=== PATIENT | male | born 1945 | race Caucasian/White ===

== ENCOUNTER 2019-06-30 12:18 | Emergency (ER) | payer SELFPAY ==
[2019-06-30 12:38] VITALS: PULSE 58; TEMP 98.8; BMI 19.8
--- NOTE | 2019-06-30 13:22 | PDOC ---
History of Present Illness - General Chief Complaint: Rash Stated Complaint: FOOT RASH/FEET PAIN Time Seen by Provider: 06/30/19 13:21 History Source: Patient, Family - History of Present Illness Initial Comments: 06/30/19 13:58 Mr. Apolinar Hemphill is a 74 y/o English speaking man with hx CKD, HTN, HLD presenting with three months of bilateral ankle wounds. He arrived from the [facility] yesterday and reports that his wounds were being managed there with antibiotics. He does not remember the names of the antibiotics that he was taking, but reports several courses of antibiotics over the last few months. He reports that the wounds began approx 3 months ago when he cut his ankle on his shoe. He reports that the L ankle wound ulcerated and eventually grew to its current state. He reports that the wound on the R foot began after he hit his leg against some furniture. He reports that he has no history of diabetes, but that he has been told by several physicians that he has "poor circulation", and that that was the likely cause of the long healing time for his wounds. He reports that for the last two months he has had difficulty ambulating secondary to pain, and reports some difficulty in doing his normal daily activities due to difficulty walking. He reports that he has not seen a physician in the [place] before and would like to establish care. He denies any fevers, chills, fatigue, night sweats, chest pain, shortness of breath, abdominal pain, paresthesias, numbness in his feet, weakness. Is this a multiple visit Asthma Patient?: No Past History - Past Medical History Allergies/Adverse Reactions: Allergies Allergy/AdvReac Type Severity Reaction Status Date / Time No Known Allergies Allergy Verified 06/30/19 12:34 COPD: No HTN: Yes - Surgical History Appendectomy: Yes - Psycho Social/Smoking Cessation Hx Smoking History: Never smoked Hx Alcohol Use: No Drug/Substance Use Hx: No Review of Systems - Review of Systems Able to Perform ROS?: Yes Comments:: 06/30/19 14:16 ROS: GENERAL/CONSTITUTIONAL: No fever or chills. No weakness. HEAD, EYES, EARS, NOSE AND THROAT: No change in vision. No ear pain or discharge. No sore throat. CARDIOVASCULAR: No chest pain or shortness of breath RESPIRATORY: No cough, wheezing, or hemoptysis. GASTROINTESTINAL: No nausea, vomiting, diarrhea or constipation. GENITOURINARY: No dysuria, frequency, or change in urination. MUSCULOSKELETAL: Bilateral ankle pain. No other joint or muscle swelling or pain. No neck or back pain. SKIN: No rash NEUROLOGIC: No headache, vertigo, loss of consciousness, or change in strength/ sensation. ENDOCRINE: No increased thirst. No abnormal weight change HEMATOLOGIC/LYMPHATIC: No anemia, easy bleeding, or history of blood clots. ALLERGIC/IMMUNOLOGIC: No hives or skin allergy. *Physical Exam - Vital Signs Last Vital Signs Temp Pulse Resp BP Pulse Ox 98.8 F 58 L 14 197/96 H 96 06/30/19 12:31 06/30/19 12:31 06/30/19 12:31 06/30/19 12:31 06/30/19 12:31 - Physical Exam Comments: 06/30/19 14:20 PE: GENERAL: Awake, alert, and fully oriented, in no acute distress HEAD: No signs of trauma, normocephalic, atraumatic EYES: PERRLA, EOMI, sclera anicteric, conjunctiva clear ENT: Auricles normal inspection, hearing grossly normal, nares patent, oropharynx clear without exudates. Moist mucosa NECK: Normal ROM, supple, no lymphadenopathy, JVD, or masses LUNGS: No distress, speaks full sentences, clear to auscultation bilaterally HEART: Regular rate and rhythm, normal S1 and S2, no murmurs, rubs or gallops, peripheral pulses normal and equal bilaterally. ABDOMEN: Soft, nontender, normoactive bowel sounds. No guarding, no rebound. No masses EXTREMITIES : L posterior ankle wound: approx 3cm wound, granulation tissue visible, no overlying erythema. R posterior ankle wound: approx 2cm wound, granulation tissue visible, no overlying erythema. ROM of bilateral feet limited by pain, no edema. No clubbing or cyanosis NEUROLOGICAL: Cranial nerves II through XII grossly intact. Normal speech, no focal sensorimotor deficits SKIN: Warm, Dry, normal turgor, no other rashes or lesions noted except as described above ED Treatment Course - LABORATORY CBC & Chemistry Diagram: 06/30/19 14:16 06/30/19 14:16 Medical Decision Making - Medical Decision Making Medical Decision Makin:[age] y.o M with hx CKD, HTN, HLD, ?peripheral vascular disease p/w three months of chronic bilateral ankle wounds. No systemic symtoms, denies fevers, chills, shortness of breath, no neuro findings of lower extremities. Low suspicion for sepsis - negative SIRS, qSOFA criteria. Plan: CBC CMP UA Urine culture Ankle and Foot X Ray L, R Dispo: Likely home with referral to PCP, wound care follow up. --- CBC - WBC 10.9 CMP - Cr 3.1 (baseline 3.0 per records from [facility]) UA - 3+ Protein Ankle/Foot XR - image reviewed, no free air or abscess noted. Pending formal read. Plan for referrals for: [facility] to establish primary care, Dr. Blount - Nephrology, Dr. Morin - Wound Care, Dr. May - Podiatry --- Xrays - negative for acute process. Plan for discharge home with follow up plan as described above. Discharge - Discharge Information Problems reviewed: Yes Clinical Impression/Diagnosis: Wound cellulitis Condition: Stable Disposition: HOME - Admission No - Follow up/Referral Referrals: Reginald Blount MD [Staff Physician] - Noé May DPM [Staff Physician] - [facility] [Provider Group] Moises Morin MD [Non Staff, Medical] - - Patient Discharge Instructions Patient Printed Discharge Instructions: Skin Wound Additional Instructions: Usted fue evaluado en la [place] de urgencias por evaluacion de piedad heridas de piel. Chequeamos a piedad niveles de dannie, y tomamos steph X de piedad pies. Todo resulto normal. Piedad niveles de Creatinine, que mide funcion de piedad rinones, estaba elavado - parece igual que piedad niveles previas. [place] indique problema de rinon cronico. Estamos dando referido a la [facility] - por favor antione javier con ellos para establecer a un doctor de cabezera. Tambien estamos dando referido a un podiatra - un doctor de pies. Estamos dando un referido con un Nefrologo - un doctor de los rinones. Por fin, estamos dando referido con el Dr. Morin, quien trate heridas cronicas de piel. Por favor antione javier petra tambien para evaluar a piedad pies. - Post Discharge Activity
[2019-06-30 14:36] LABS: BASO % 1.4 % (0-2.0); EOS % 7.3 % (0-4.5); HEMATOCRIT 36.8 % (35.4-49); HEMOGLOBIN 12.2 GM/dL (11.7-16.9); LYMPH % 12.4 % (8-40); MCH 32.2 pg (25.7-33.7); MCHC 33.2 g/dl (32.0-35.9); MEAN CELL VOLUME 97.2 fl (80-96); MONO % 17.5 % (3.8-10.2); NEUT % 61.4 % (42.8-82.8); PLATELET COUNT 252 K/MM3 (134-434); RBC 3.79 M/mm3 (4.00-5.60); RDW 16.8 % (11.9-15.9); WHITE BLOOD COUNT 10.9 K/mm3 (4.0-10.0)
[2019-06-30 15:12] LABS: EPI CELLS 1.8 /HPF (0-5/HPF); HYALINE CASTS 31 /lpf (0-8); PH,URINE 5.5 (5.0-8.0); URINE APPEARANCE CLEAR; URINE BACTERIA 0.8 /hpf (NEGATIVE); URINE BILIRUBIN NEGATIVE (NEGATIVE); URINE COLOR YELLOW; URINE GLUCOSE (UA) NEGATIVE (NEGATIVE); URINE KETONE NEGATIVE (NEGATIVE); URINE LEUK ESTERASE NEGATIVE (NEGATIVE); URINE NITRITE NEGATIVE (NEGATIVE); URINE PROTEIN 3+ (NEGATIVE); URINE RBC 1 /hpf (0-4); URINE UROBILINOGEN 0.2 mg/dL (0.2-1.0); URINE WBC 1 /hpf (0-5)
[2019-06-30 15:26] LABS: ALBUMIN 3.8 g/dl (3.4-5.0); BILIRUBIN,TOTAL 0.5 mg/dL (0.2-1); CREATININE 3.1 mg/dL (0.55-1.3); POTASSIUM 5.3 mmol/L (3.5-5.1); TOT PROT 10.6 g/dl (6.4-8.2)
--- NOTE | 2019-06-30 15:45 | PDOC ---
Documentation entered by Nicolle Mcgee SCRIBE, acting as scribe for Alexandra Sánchez DO. Alexandra Sánchez DO: This documentation has been prepared by the Everardo art Adrianna, SCRIBE, under my direction and personally reviewed by me in its entirety. I confirm that the documentation accurately reflects all work, treatment, procedures, and medical decision making performed by me. Attending Attestation - Resident Resident Name: Kevin Suero - ED Attending Attestation I have performed the following: I have examined & evaluated the patient, The case was reviewed & discussed with the resident, I agree w/resident's findings & plan, Exceptions are as noted - HPI HPI: The patient is a 74 year old male, with a significant PMH of HTN, CKD, and HLD, who presents to the ED for evaluation of LE wounds for 3 months. Patient obtained a wound to the right posterior ankle after hitting it on furniture, and had a cut to his left medial ankle which ulcerated. Both wounds developed progressively worsening redness and pain. His pain is exacerbated with bearing weight, and he reports difficulty ambulating secondary to pain. He returned from the [place] yesterday, where he was being treated with several courses of antibiotics (unsure of the specific medications). Denies fevers, chills, chest pain, SOB, nausea, vomit, diarrhea, dysuria, hematuria, numbness or tingling of the LEs. Allergies: NKA, NKDA Surgical History: Appendectomy Social History: Denies EtOH, tobacco, or illicit drug use PCP: Does not have one - Physicial Exam PE: Constitutional: Awake, alert, oriented. No acute distress. Head: Normocephalic. Atraumatic Eyes: PERRL. EOMI. Conjunctivae are not pale. ENT: Mucous membranes are moist and intact. Posterior pharynx without exudates or erythema. Uvula midline. Neck: Supple. Full ROM. No lymphadenopathy. Cardiovascular: Regular rate. Regular rhythm. S1, S2 regular. Distal pulses are 2+ and symmetric. Pulmonary/Chest: No evidence of respiratory distress. Clear to auscultation bilaterally No wheezing, rales or rhonchi. Abdominal: Soft and nondistended. There is no tenderness. No rebound, guarding or rigidity. No organomegaly. No palpable masses. Good bowel sounds. Back: No CVA tenderness. Musculoskeletal: No edema. No cyanosis. No clubbing. Full range of motion in all extremities. Nocalf tenderness. Radial/pedal pulses are intact and 2+ bilaterally Skin: +Wounds to the bilateral heels, without induration, fluctuate, erythema, or drainage. +Granulation of skin with an applied medical serum. Skin is warm and dry. No petechiae. No purpura. Neurological: Alert and oriented to person, place, and time. Cranial nerves II -XII are grossly intact. Normal speech. Strength is grossly symmetric. No sensory deficits. Psychiatric: Good eye contact. Normal interaction, affect and behavior. - Medical Decision Making 06/30/19 15:41 I, Dr. Alexandra Sánchez, DO, attest that this document has been prepared under my direction and personally reviewed by me in its entirety. I further attest, that it accurately reflects all work, treatment, procedures and medical decision -making performed by me. a/p: 74yo male with hx of htn and chronic wounds to back of legs -pt being treated in the DR for htn, ckd, and wounds -has topical medicine he has been applying -arrived yesterday, daughter saw the wounds and brought the patient to the ED for re-eval -wounds, no acute infection, no drainage, no warmth, no cellulitis -elevated bp upon arrival -will send labs, xrays of feet 06/30/19 15:43 no acute air or bony changes visualized ckd and baseline cr per prior records from 149/79 is repeat bp stable for dc to home and follow up with pmd, podiatry, renal, and vasc sx for wound care no abx needed at this time
[2019-06-30 15:57] VITALS: BP 149/79
[2019-06-30 16:15] LABS: ANISOCYTOSIS 1+; MACROCYTOSIS 1+
[2019-06-30 16:16] LABS: PLATELET ESTIMATE ADEQUATE
== END 2019-06-30 16:21 | disposition home or self-care (01) ==
LOC: JER 12:18
DX: L03.116 Cellulitis of left lower limb (principal); L03.115 Cellulitis of right lower limb; I12.9 Hypertensive chronic kidney disease with stage 1 through stage 4 chronic kidney disease, or unspecified chronic kidney disease; N18.9 Chronic kidney disease, unspecified; E78.5 Hyperlipidemia, unspecified; I73.9 Peripheral vascular disease, unspecified
CPT/HCPCS: 36415; 73610-TC-LT-FY; 73610-TC-RT-FY; 73630-TC-LT; 73630-TC-RT-FY; 80053; 81003; 85025; 87086; 99282-25

== ENCOUNTER 2019-09-01 11:08 | Inpatient (IN) | payer OTHER ==
--- NOTE | 2019-09-01 11:37 | PDOC ---
History of Present Illness - General Chief Complaint: Blood Pressure Problem Stated Complaint: SENT BY PCP Time Seen by Provider: 09/01/19 11:36 History Source: Patient, Family Exam Limitations: Language Barrier - History of Present Illness Initial Comments: 09/05/19 08:28 HPI: 74M PMH HTN and CKD, yemeni speaking recently from [place] sent by solidworks designer for elevated BP. Pt is asymptomatic. Denies cp/palp/sob, headache, lightheadedness, dizziness, abd pain, n/v/d, bloody stool. Pt has a 1 month hx of rash involving the forearm, chest, abdomen, and legs. Pt has a chronic achilles foot wound currently being treated w santyl and amoxicillin. NKDA. Pt took all home meds today. History gathered w/ assistance of family at bedside. Meds per pharmacy: labetalol hcl 100; augmentin 500-125, santyl ointment PCP - Dr. Kendall Past History - Past Medical History Allergies/Adverse Reactions: Allergies Allergy/AdvReac Type Severity Reaction Status Date / Time No Known Allergies Allergy Verified 09/01/19 11:18 Home Medications: Ambulatory Orders Amoxicillin/Potassium Clav [Amox-Clav 500-125 mg Tablet] 500 mg PO BID 09/01/19 Labetalol HCl 100 mg PO BID 09/01/19 Cardiac Disorders: No COPD: No HTN: Yes Hypercholesterolemia: Yes Kidney Stones: (renal failure 20% working) Other medical history: leg ulcers, - Surgical History Appendectomy: Yes - Psycho Social/Smoking Cessation Hx Smoking History: Never smoked Information on smoking cessation initiated: No Hx Alcohol Use: No Drug/Substance Use Hx: No Review of Systems - Review of Systems Able to Perform ROS?: Yes Comments:: 09/05/19 08:28 ROS: CONSTITUTIONAL: Denies F / C HEENT: Denies headache, lightheadedness, dizziness, changes in vision / hearing , diplopia, blurry vision Denies sore throat, rhinorrhea. RESP: Denies SOB, cough, orthopnea, PEDRO CARD: Denies chest pain, palpitations GI: Denies N / V / D, abdominal pain, bloody stool, inability to tolerate PO : Endorses one day of urinary frequency and suprapubic pain. SKIN: Denies rashes NEURO: Denies numbness, tingling, weakness MSK: Denies back pain Is the patient limited Syrian proficient: Yes *Physical Exam - Vital Signs Last Vital Signs Temp Pulse Resp BP Pulse Ox 97.8 F 66 19 238/106 H 97 09/01/19 11:10 09/01/19 11:10 09/01/19 11:10 09/01/19 11:10 09/01/19 11:10 - Physical Exam 09/05/19 08:28 PE: VS - Hypertensive to 250s/110s GEN: Well appearing, NAD, comfortable. AAOx3 HEENT: NC/AT, CN II-XII intact, EOMI, PERRLA. No facial asymmetry. Moist mucous membranes. Normal voice. Supple neck w/ FROM. CV: S1/S2, RRR, no m/r/g LUNG: CTAB, no wheezes, crackles, rales, rhonchi. GI: soft, ndnt, +BS, no guarding, no rebound. No masses. Neg CVAT b/l. EXTREMITIES: No obvious deformities of all extremities. Left foot, achilles region w/ 3cm wound w/ granulation tissue; covered w/ ointment. SKIN: warm, dry, normal turgor. Red erythematous rash extensor surface of b/l forearm, pruritic, scaling. Similar rash on sternum. Rash present on flanks and LEs. PSYCH: normal mood and affect NEURO: Moving all extremities well. 5/5 strength UE and LE. symmetric sensation. Heart Score/ECG Review - History History: Moderately suspicious - Electrocardiogram EKG: Non specific repolarization disturbance - Age Age: >/= 65 - Risk Factors Risk Factors Heart Score: Yes Hx Hypertension Based on the list above the patient has:: 1-2 risk factors - Troponin Troponin: 1-3x normal limit - Score Heart Score - Total: 6 ED Treatment Course - LABORATORY CBC & Chemistry Diagram: 09/05/19 05:25 09/05/19 05:25 Medical Decision Making - Medical Decision Making 09/01/19 12:10 MDM: 74M with asymptomatic hypertension. Likely HTN urgency vs emergency. Cpr Instructor reporting ekg changes along w/ elevated BP; states regular SBP 170s. - cbc, cmp, cardiac - ua - EKG - nicardipine drip w/ transition to amlodipine if BP responsive; goal of 20% reduction EKG 09/01/19 11:33 HR 58 DE 150 QRS 98 QTc 406 Sinus bradycardia, TWI V1, ST/T abnormality V5-6 09/01/19 13:48 BP 184/93 s/p drip initiation start amlodipine 10mg reassess; will wean off nicardipine drip 09/01/19 15:39 150s/70s on 2.5mg dc drip continue close BP monitoring 09/01/19 16:14 off drip 170/86 rpt and admit 09/01/19 16:20 labs reviewed trop 0.09 HEART = 6 tele-obs 09/01/19 16:55 177/90 rpt CXR w/o acute pathology 09/01/19 17:25 Endorsed to hospitalists Admitted Obs-tele Discharge - Discharge Information Problems reviewed: Yes Clinical Impression/Diagnosis: Hypertensive emergency - Follow up/Referral - Patient Discharge Instructions - Post Discharge Activity
[2019-09-01] MEDS ORDERED: NICARDIPINE 25 MG in DEXTROSE 5%-WATER - 240 ML IVPB SCH (12:30)
[2019-09-01 12:50] LABS: BASO % 0.9 % (0-2.0); EOS % 10.9 % (0-4.5); HEMATOCRIT 31.7 % (35.4-49); HEMOGLOBIN 10.5 GM/dL (11.7-16.9); LYMPH % 14.4 % (8-40); MCH 32.9 pg (25.7-33.7); MCHC 33.3 g/dl (32.0-35.9); MEAN CELL VOLUME 98.8 fl (80-96); MEAN PLT VOLUME 7.7 fl (7.5-11.1); MONO % 17.8 % (3.8-10.2); PLATELET COUNT 245 K/MM3 (134-434); RDW 17.6 % (11.9-15.9); WHITE BLOOD COUNT 11.5 K/mm3 (4.0-10.0)
[2019-09-01 12:56] LABS: EPI CELLS 0.6 /HPF (0-5/HPF); HYALINE CASTS 2 /lpf (0-8); URINE APPEARANCE TURBID; URINE BACTERIA 9.3 /hpf (NEGATIVE); URINE BILIRUBIN NEGATIVE (NEGATIVE); URINE COLOR YELLOW; URINE GLUCOSE (UA) NEGATIVE (NEGATIVE); URINE KETONE NEGATIVE (NEGATIVE); URINE LEUK ESTERASE NEGATIVE (NEGATIVE); URINE NITRITE NEGATIVE (NEGATIVE); URINE PROTEIN 3+ (NEGATIVE); URINE RBC 5 /hpf (0-4); URINE UROBILINOGEN 0.2 mg/dL (0.2-1.0); URINE WBC 3 /hpf (0-5)
[2019-09-01 13:26] LABS: ALBUMIN 3.3 g/dl (3.4-5.0); BILIRUBIN,TOTAL 0.3 mg/dL (0.2-1); BLOOD UREA NITROGEN 36.3 mg/dL (7-18); CALCIUM 9.2 mg/dL (8.5-10.1); CREATININE 3.2 mg/dL (0.55-1.3); POTASSIUM 3.8 mmol/L (3.5-5.1); TOT PROT 8.9 g/dl (6.4-8.2)
--- NOTE | 2019-09-01 13:50 | PDOC ---
Documentation entered by Graham Rodríguez SCRIBE, acting as scribe for Brown Mccauley MD. Brown Mccauley MD: This documentation has been prepared by the Anne art Nirvannie, SCRIBE, under my direction and personally reviewed by me in its entirety. I confirm that the documentation accurately reflects all work, treatment, procedures, and medical decision making performed by me. Attending Attestation - Resident Resident Name: ParryAlbaro - ED Attending Attestation I have performed the following: I have examined & evaluated the patient, The case was reviewed & discussed with the resident, I agree w/resident's findings & plan - HPI HPI: 09/01/19 12:10 The patient is a 74 year old male, with a significant past medical history of HTN, CKD, and HLD, who presents to the emergency department with, elevated blood pressure and abnormal EKG at clinic. Patient was advised by his telegraph mechanic Dr. Jose Enrique Owen to report to the ED for further evaluation. Allergies: NKDA Past surgical history: Appendectomy. - Physicial Exam PE: 09/01/19 13:48 Patient is awake and alert, well-nourished, in no distress Normocephalic, atraumatic PERRLA, EOMI No JVD CTA RRR Extent of her throat dermatitis upper extremities and lower extremities bilaterally as well as upper chest no lower extremity edema - Medical Decision Making 09/01/19 13:49 Patient 74-year-old male with multiple comorbidities, presents to the ER with significantly elevated blood pressure with EKG revealing T wave inversions and lateral leads (no previous EKGs available for comparison. Given presence of EKG abnormalities, will treat as hypertensive emergency. Will initiate nicardipine drip given heart rate of 58 at this time. Will obtain CBC/CMP/ cardiac enzymes/UA for evaluation of proteinuria. Will attempt to convert to oral antihypertensives. Likely admission. 09/01/19 13:57 pt assymptomatic. BP noted 183/74. will administer amlodipine po.
[2019-09-01] MEDS ORDERED: amLODIPine BESYLATE 10 MG TABLET (FP) PO ONE (13:51)
[2019-09-01] MEDS ORDERED: amLODIPine BESYLATE 5 MG TABLET (FP) ONE (14:25)
[2019-09-01 15:45] LABS: ANISOCYTOSIS 1+; MACROCYTOSIS 1+; PLATELET ESTIMATE NORMAL
--- NOTE | 2019-09-01 15:58 | EKG ---
Test Reason : Blood Pressure : / mmHG Vent. Rate : 058 BPM Atrial Rate : 058 BPM P-R Int : 150 ms QRS Dur : 098 ms QT Int : 414 ms P-R-T Axes : 040 021 102 degrees QTc Int : 406 ms SINUS BRADYCARDIA ABNORMAL ECG NO PREVIOUS ECGS AVAILABLE Confirmed by NICOLE YADAV MD ([id number]) on 09/01/2019 3:56:06 PM Referred By: Confirmed By:NICOLE YADAV MD
--- NOTE | 2019-09-01 19:54 | HP ---
CHIEF COMPLAINT: elevated blood pressures PCP:Dr. Kendall [employer] Equipment Operator: Dr. Owen HISTORY OF PRESENT ILLNESS: This 74 year old mainly Kazakh speaking male with a significant past medical history of hypertension, chronic kidney disease and hyperlipidemia who presents to the emergency department with elevated blood pressure and found to have an abnormal EKG at clinic. Patient was advised by his [employer] Equipment Operator to report to the ED for further evaluation. ER course was notable for hypertensive urgency. He was started on an IV nicardipine gtt with improvement in blood pressures. He also received amlodipine 10 mg tablet. He was found to have an elevated troponin of 0.09 and abnormal EKG with T wave inversions in V1 and ST depressions.Patient was asymptomatic and denied headache, chest pain, dizziness or shortness of breath. Recent Travel: denies PAST MEDICAL HISTORY: hypertension chronic kidney disease hyperlipidemia PAST SURGICAL HISTORY: appendectomy Social History: Smoking:no Alcohol:no Drugs: no Allergies No Known Allergies Allergy (Verified 09/01/19 11:18) HOME MEDICATIONS: REVIEW OF SYSTEMS CONSTITUTIONAL: Absent: fever, chills, diaphoresis, generalized weakness, malaise, loss of appetite, weight change HEENT: Absent: rhinorrhea, nasal congestion, throat pain, throat swelling, difficulty swallowing, mouth swelling, ear pain, eye pain, visual changes CARDIOVASCULAR: Absent: chest pain, syncope, palpitations, irregular heart rate, lightheadedness , peripheral edema RESPIRATORY: Absent: cough, shortness of breath, dyspnea with exertion, orthopnea, wheezing, stridor, hemoptysis GASTROINTESTINAL: Absent: abdominal pain, abdominal distension, nausea, vomiting, diarrhea, constipation, melena, hematochezia GENITOURINARY: Absent: dysuria, frequency, urgency, hesitancy, hematuria, flank pain, genital pain MUSCULOSKELETAL: Absent: myalgia, arthralgia, joint swelling, back pain, neck pain SKIN: Absent: rash, itching, pallor HEMATOLOGIC/IMMUNOLOGIC: Absent: easy bleeding, easy bruising, lymphadenopathy, frequent infections ENDOCRINE: Absent: unexplained weight gain, unexplained weight loss, heat intolerance, cold intolerance NEUROLOGIC: Absent: headache, focal weakness or paresthesias, dizziness, unsteady gait, seizure, mental status changes, bladder or bowel incontinence PSYCHIATRIC: Absent: anxiety, depression, suicidal or homicidal ideation, hallucinations. PHYSICAL EXAMINATION Vital Signs - 24 hr 09/01/19 09/01/19 09/01/19 11:10 13:13 13:59 Temperature 97.8 F Pulse Rate 66 63 Pulse Rate [ Apical] Respiratory 19 Rate Blood Pressure 238/106 H 254/118 H Blood Pressure 184/93 H [Right Arm] O2 Sat by Pulse 97 Oximetry (%) 09/01/19 09/01/19 09/01/19 14:29 15:12 15:30 Temperature Pulse Rate Pulse Rate [ 78 69 71 Apical] Respiratory 16 16 16 Rate Blood Pressure Blood Pressure 166/78 144/81 155/75 [Right Arm] O2 Sat by Pulse 98 98 98 Oximetry (%) 09/01/19 09/01/19 16:30 17:30 Temperature Pulse Rate Pulse Rate [ 72 70 Apical] Respiratory Rate Blood Pressure Blood Pressure 168/57 L 166/75 [Right Arm] O2 Sat by Pulse Oximetry (%) GENERAL: awake alert and fully oriented HEAD: normal EARS, NOSE, THROAT: ears normal no exudate moist mucous membranes NECK: normal LUNGS: breath sounds equal clear to auscultation bilaterally no use of accessory muscles HEART: regular rate and rhythm normal S1 and S2 ABDOMEN: soft nontender not distended normoactive bowel sounds MUSCULOSKELETAL: normal ROM UPPER EXTREMITIES: bilateral forearm rash with redness and itching LOWER EXTREMITIES: 2+ pulses warm to palpation no pitting edema NEUROLOGICAL: no neuro focal deficits PSYCHIATRIC: cooperative good eye contact appropriate mood and affect SKIN: warm rash present to bilateral forearms Laboratory Results - last 24 hr 09/01/19 09/01/19 09/01/19 11:45 11:45 12:45 WBC 11.5 H RBC 3.20 L Hgb 10.5 L Hct 31.7 L MCV 98.8 H MCH 32.9 MCHC 33.3 RDW 17.6 H Plt Count 245 MPV 7.7 Absolute Neuts (auto) 6.5 Neutrophils % 56.0 Neutrophils % (Manual) 64.9 Band Neutrophils % 2.1 Lymphocytes % 14.4 Lymphocytes % (Manual) 10.3 D Monocytes % 17.8 H Monocytes % (Manual) 12 H Eosinophils % 10.9 H Eosinophils % (Manual) 9.3 H Basophils % 0.9 Basophils % (Manual) 1.0 Myelocytes % (Man) 0 D Promyelocytes % (Man) 0 Blast Cells % (Manual) 0 Nucleated RBC % 1 H Metamyelocytes 0 Hypochromia 0 Platelet Estimate Normal Polychromasia 1+ Poikilocytosis 0 Anisocytosis 1+ Microcytosis 0 Macrocytosis 1+ Sodium 138 Potassium 3.8 Chloride 106 Carbon Dioxide 24 Anion Gap 8 BUN 36.3 H Creatinine 3.2 H Est GFR (CKD-EPI)AfAm 20.97 Est GFR (CKD-EPI)NonAf 18.09 Random Glucose 118 H Calcium 9.2 Total Bilirubin 0.3 AST 30 ALT 30 Alkaline Phosphatase 50 Creatine Kinase 744 H Creatine Kinase Index 0.3 CK-MB (CK-2) 2.3 Troponin I 0.09 H Total Protein 8.9 H Albumin 3.3 L Urine Color Yellow Urine Appearance Turbid Urine pH 6.0 Ur Specific [place] 1.014 Urine Protein 3+ H Urine Glucose (UA) Negative Urine Ketones Negative Urine Blood 1+ H Urine Nitrite Negative Urine Bilirubin Negative Urine Urobilinogen 0.2 Ur Leukocyte Esterase Negative Urine WBC (Auto) 3 Urine RBC (Auto) 5 Urine Casts (Auto) 2 U Epithel Cells (Auto) 0.6 Urine Bacteria (Auto) 9.3 ASSESSMENT/PLAN: 74 year old male with a significant past medical history of hypertension, chronic kidney disease,and hyperlipidemia who presented with hypertensive urgency. #1 Hypertensive Urgency Asymptomatic of chest pain, dizziness or headache. UA w/ 3+ proteinuria. Patient is euvolemic on exam. He was started on IV nicardipine gtt w/ improvement in blood pressures. He received amlodipine 10 mg tablet. Check echocardiogram to evaluate LV function and exclude LVH Continue with amlodipine 10 mg once daily Avoid janee/arb in the setting of kidney disease Monitor neurological status #2 Elevated Troponin Troponin 0.09-likely demand mediated ischemia in setting of hypertensive urgency and acute on chronic renal failure Abnormal EKG with sinus bradycardia T wave inversions in V1 and ST depressions, no acute ST elevation Continue to trend troponins Repeat EKG in am Cardiology- Dr. Ibrahim consulted #3 Acute on Chronic Kidney Disease Creatinine 3.2(at his baseline) Nephrology- Dr. Owen consulted Avoid janee/arb for blood pressure control #4 Mild Leukocytosis Currently afebrile, no chills or cough UA negative, CXR with no acute pathology He he has bilateral arm redness w/ itching(recently started on oral antibiotics which will continue) and has an ulcer to his foot. Wound culture pending Consulted Vascular- Dr. Morin for foot ulcer Consulted ID- Dr. Taveras for bilateral arm redness and foot ulcer Continue to monitor closely FEN --no fluids indicated at this time --monitor electrolytes --low sodium/renal diet DVT Prophylaxsis --TEDS --OOB to chair Visit type - Emergency Visit Emergency Visit: Yes ED Registration Date: 09/01/19 Care time: The patient presented to the Emergency Department on the above date and was hospitalized for further evaluation of their emergent condition. - New Patient This patient is new to me today: Yes Date on this admission: 09/01/19 - Critical Care Critical Care patient: No
[2019-09-01] MEDS ORDERED: METOPROLOL TARTRATE 25 MG TABLET (FP) PO SCH (22:15)
[2019-09-01] MEDS ORDERED: diphenhydrAMINE HCL 25 MG CAPSULE (FP) PO ONE (22:40)
[2019-09-01] MEDS: LABETALOL HCL 100 MG TABLET (FP) PO SCH (23:21)
[2019-09-01] MEDS: AMOXICILLIN 500 MG CAPSULE (FP) PO SCH (23:21)
[2019-09-02] MEDS: LABETALOL HCL 100 MG TABLET (FP) PO SCH (06:35)
[2019-09-02 07:48] LABS: BLOOD UREA NITROGEN 30.5 mg/dL (7-18); CALCIUM 9.8 mg/dL (8.5-10.1); CREATININE 2.9 mg/dL (0.55-1.3); POTASSIUM 3.8 mmol/L (3.5-5.1)
[2019-09-02 07:49] LABS: HEMATOCRIT 32.7 % (35.4-49); HEMOGLOBIN 10.9 GM/dL (11.7-16.9); MCH 33.1 pg (25.7-33.7); MCHC 33.4 g/dl (32.0-35.9); MEAN CELL VOLUME 99.1 fl (80-96); MEAN PLT VOLUME 7.7 fl (7.5-11.1); PLATELET COUNT 249 K/MM3 (134-434); RDW 17.4 % (11.9-15.9); WHITE BLOOD COUNT 12.6 K/mm3 (4.0-10.0)
--- NOTE | 2019-09-02 09:46 | PN ---
Physical Exam: SUBJECTIVE: Patient seen and examined. He complains of pain in his feet causing difficulty walking and an itchy rash on both arms and his chest. OBJECTIVE: Vital Signs Period Temp Pulse Resp BP Sys/Judd Pulse Ox Last 24 Hr 97.8 F-98.7 F 63-103 16-20 144-254/57-118 97-98 GENERAL: The patient is awake, alert, and fully oriented, in no acute distress. LUNGS: Breath sounds equal, clear to auscultation bilaterally, no wheezes, no crackles, no accessory muscle use. HEART: Regular rate and rhythm, S1, S2 without murmur, rub or gallop. ABDOMEN: Soft, nontender, nondistended, normoactive bowel sounds, no guarding, no rebound, no hepatosplenomegaly, no masses. EXTREMITIES: 2+ pulses, warm, well-perfused, no edema. SKIN: Warm, dry, normal turgor. Erythematous macular rash on both arms, upper chest. Laboratory Results - last 24 hr 09/01/19 09/01/19 09/01/19 11:45 11:45 12:45 WBC 11.5 H RBC 3.20 L Hgb 10.5 L Hct 31.7 L MCV 98.8 H MCH 32.9 MCHC 33.3 RDW 17.6 H Plt Count 245 MPV 7.7 Absolute Neuts (auto) 6.5 Neutrophils % 56.0 Neutrophils % (Manual) 64.9 Band Neutrophils % 2.1 Lymphocytes % 14.4 Lymphocytes % (Manual) 10.3 D Monocytes % 17.8 H Monocytes % (Manual) 12 H Eosinophils % 10.9 H Eosinophils % (Manual) 9.3 H Basophils % 0.9 Basophils % (Manual) 1.0 Myelocytes % (Man) 0 D Promyelocytes % (Man) 0 Blast Cells % (Manual) 0 Nucleated RBC % 1 H Metamyelocytes 0 Hypochromia 0 Platelet Estimate Normal Polychromasia 1+ Poikilocytosis 0 Anisocytosis 1+ Microcytosis 0 Macrocytosis 1+ Sodium 138 Potassium 3.8 Chloride 106 Carbon Dioxide 24 Anion Gap 8 BUN 36.3 H Creatinine 3.2 H Est GFR (CKD-EPI)AfAm 20.97 Est GFR (CKD-EPI)NonAf 18.09 Random Glucose 118 H Calcium 9.2 Total Bilirubin 0.3 AST 30 ALT 30 Alkaline Phosphatase 50 Creatine Kinase 744 H Creatine Kinase Index 0.3 CK-MB (CK-2) 2.3 Troponin I 0.09 H Total Protein 8.9 H Albumin 3.3 L Urine Color Yellow Urine Appearance Turbid Urine pH 6.0 Ur Specific [place] 1.014 Urine Protein 3+ H Urine Glucose (UA) Negative Urine Ketones Negative Urine Blood 1+ H Urine Nitrite Negative Urine Bilirubin Negative Urine Urobilinogen 0.2 Ur Leukocyte Esterase Negative Urine WBC (Auto) 3 Urine RBC (Auto) 5 Urine Casts (Auto) 2 U Epithel Cells (Auto) 0.6 Urine Bacteria (Auto) 9.3 09/01/19 09/02/19 09/02/19 23:00 05:53 05:53 WBC 12.6 H RBC 3.30 L Hgb 10.9 L Hct 32.7 L MCV 99.1 H MCH 33.1 MCHC 33.4 RDW 17.4 H Plt Count 249 MPV 7.7 Absolute Neuts (auto) Neutrophils % Neutrophils % (Manual) Band Neutrophils % Lymphocytes % Lymphocytes % (Manual) Monocytes % Monocytes % (Manual) Eosinophils % Eosinophils % (Manual) Basophils % Basophils % (Manual) Myelocytes % (Man) Promyelocytes % (Man) Blast Cells % (Manual) Nucleated RBC % Metamyelocytes Hypochromia Platelet Estimate Polychromasia Poikilocytosis Anisocytosis Microcytosis Macrocytosis Sodium 139 Potassium 3.8 Chloride 105 Carbon Dioxide 25 Anion Gap 9 BUN 30.5 H Creatinine 2.9 H Est GFR (CKD-EPI)AfAm 23.62 Est GFR (CKD-EPI)NonAf 20.38 Random Glucose 94 Calcium 9.8 Total Bilirubin AST ALT Alkaline Phosphatase Creatine Kinase Creatine Kinase Index CK-MB (CK-2) Troponin I 0.06 H Total Protein Albumin Urine Color Urine Appearance Urine pH Ur Specific [place] Urine Protein Urine Glucose (UA) Urine Ketones Urine Blood Urine Nitrite Urine Bilirubin Urine Urobilinogen Ur Leukocyte Esterase Urine WBC (Auto) Urine RBC (Auto) Urine Casts (Auto) U Epithel Cells (Auto) Urine Bacteria (Auto) 09/02/19 05:53 WBC RBC Hgb Hct MCV MCH MCHC RDW Plt Count MPV Absolute Neuts (auto) Neutrophils % Neutrophils % (Manual) Band Neutrophils % Lymphocytes % Lymphocytes % (Manual) Monocytes % Monocytes % (Manual) Eosinophils % Eosinophils % (Manual) Basophils % Basophils % (Manual) Myelocytes % (Man) Promyelocytes % (Man) Blast Cells % (Manual) Nucleated RBC % Metamyelocytes Hypochromia Platelet Estimate Polychromasia Poikilocytosis Anisocytosis Microcytosis Macrocytosis Sodium Potassium Chloride Carbon Dioxide Anion Gap BUN Creatinine Est GFR (CKD-EPI)AfAm Est GFR (CKD-EPI)NonAf Random Glucose Calcium Total Bilirubin AST ALT Alkaline Phosphatase Creatine Kinase Creatine Kinase Index CK-MB (CK-2) Troponin I 0.07 H Total Protein Albumin Urine Color Urine Appearance Urine pH Ur Specific [place] Urine Protein Urine Glucose (UA) Urine Ketones Urine Blood Urine Nitrite Urine Bilirubin Urine Urobilinogen Ur Leukocyte Esterase Urine WBC (Auto) Urine RBC (Auto) Urine Casts (Auto) U Epithel Cells (Auto) Urine Bacteria (Auto) Active Medications Generic Name Dose Route Start Last Admin Trade Name Freq PRN Reason Stop Dose Admin Amlodipine Besylate 10 mg 09/02/19 10:00 Norvasc - PO DAILY BRODIE Amoxicillin 500 mg 09/01/19 22:45 09/01/19 23:21 Amoxicillin - PO 500 mg BID BRODIE Administration Labetalol HCl 100 mg 09/01/19 22:45 09/02/19 06:35 Normodyne - PO 100 mg TID BRODIE Administration ASSESSMENT/PLAN: This is a 74 year old man with a history of HTN, hyperlipidemia, CKD who was sent from his PCP office to the ED for uncontrolled BP and abnormal EKG. 1. Hypertensive urgency - Nicardipine drip discontinued 2. HTN, uncontrolled - Continue Norvasc - Increase Labetalol - Echo ordered 3. Demand ischemia 4. Acute kidney injury on stage 4 CKD - Creatinine stable 5. Left heel ulcer - Wound care - Vascular surgery consulted - Follow up wound culture 6. Hyperlipidemia 7. Skin rash - ? allergy to PCN - has been on amoxicillin - Discontinue amoxicillin - Topical steroid Visit type - Emergency Visit Emergency Visit: Yes ED Registration Date: 09/02/19 Care time: The patient presented to the Emergency Department on the above date and was hospitalized for further evaluation of their emergent condition. - New Patient This patient is new to me today: Yes Date on this admission: 09/02/19 - Critical Care Critical Care patient: No - Discharge Referral Referred to [facility] Med P.C.: No
--- NOTE | 2019-09-02 10:06 | CON.CARD ---
Consult Consult Specialty:: Cardiology for Dr. Simmons Referred by:: Hospitalist Medicine Reason for Consultation:: Hypertensive urgency - History of Present Illness Chief Complaint: Hypertensive urgency History of Present Illness: This 74 year old mainly Yakut speaking male with a significant past medical history of hypertension, chronic kidney disease and hyperlipidemia referred to the emergency department with elevated blood pressure and found to have an abnormal EKG at clinic. Patient was advised by his math instructor to report to the ED for further evaluation. ER course was notable for hypertensive urgency. He was started on an IV nicardipine gtt with improvement in blood pressures. He also received amlodipine 10 mg tablet. He was found to have an elevated troponin of 0.09 since declining and abnormal EKG with strain pattern. Patient is asymptomatic and denied headache, chest pain, dizziness, true syncope , palpitations, shortness of breath, orthopnea, PNE pr LE edema, reports medication and diet compliance, denies NSAID use. - History Source History Provided By: Family Member, Medical Record Limitations to Obtaining History: Language Barrier - Alcohol/Substance Use Hx Alcohol Use: No - Smoking History Smoking history: Never smoked Home Medications - Allergies Allergies/Adverse Reactions: Allergies Allergy/AdvReac Type Severity Reaction Status Date / Time No Known Allergies Allergy Verified 09/01/19 11:18 - Home Medications Home Medications: Ambulatory Orders Amoxicillin/Potassium Clav [Amox-Clav 500-125 mg Tablet] 500 mg PO BID 09/01/19 Labetalol HCl 100 mg PO BID 09/01/19 Review of Systems - Review of Systems Cardiovascular: reports: No Symptoms Respiratory: reports: No Symptoms - Risk Factors Known Risk Factors: Yes: Hypertension Vital Signs: Vital Signs Temperature 98.7 F 09/02/19 02:24 Pulse Rate 73 09/02/19 06:00 Respiratory Rate 20 09/02/19 06:00 Blood Pressure 178/98 H 09/02/19 06:00 O2 Sat by Pulse Oximetry (%) 98 09/01/19 15:30 Constitutional: Yes: No Distress, Calm Neck: Yes: Supple Respiratory: Yes: Regular, CTA Bilaterally Gastrointestinal: Yes: Normal Bowel Sounds, Soft Cardiovascular: Yes: Regular Rate and Rhythm JVD: No Carotid Bruit: No Heart Sounds: Yes: S1, S2 Murmur: Yes: Systolic Murmur, Grade 1 Edema: No - Other Data Labs, Other Data: CBC, BMP 09/02/19 05:53 09/02/19 05:53 Troponin, BNP 09/01/19 09/01/19 09/02/19 11:45 23:00 05:53 Troponin I 0.09 H 0.06 H 0.07 H Troponin, BNP 09/01/19 09/01/19 09/02/19 11:45 23:00 05:53 Troponin I 0.09 H 0.06 H 0.07 H SB @ [address]-T changes Ejection Fraction %: LVEF > or = 40 % Imaging - Results Chest X-ray: Report Reviewed (NAD) Problem List - Problems (1) Hypertensive heart disease Code(s): I11.9 - HYPERTENSIVE HEART DISEASE WITHOUT HEART FAILURE Qualifiers: Heart failure presence: without heart failure Qualified Code(s): I11.9 - Hypertensive heart disease without heart failure (2) [id number] kidney injury Code(s): N17.9 - ACUTE KIDNEY FAILURE, UNSPECIFIED; N18.9 - CHRONIC KIDNEY DISEASE, UNSPECIFIED Qualifiers: Chronic kidney disease stage: stage 3 (moderate) (3) Proteinuria Code(s): R80.9 - PROTEINURIA, UNSPECIFIED Qualifiers: Proteinuria type: unspecified Qualified Code(s): R80.9 - Proteinuria, unspecified (4) Wound cellulitis Code(s): L03.90 - CELLULITIS, UNSPECIFIED (5) Demand ischemia Code(s): I24.8 - OTHER FORMS OF ACUTE ISCHEMIC HEART DISEASE Assessment/Plan 1. Hypertensive urgency 2. Demand ischemia 3. Acute on CKD with proteinuria 4. Foot ulcer 5. Hyperlipidemia P:1. Weaned off IV nicardipine gtt w/ improvement in blood pressures. 2. Continue with amlodipine 10 mg once daily, increase labetolol 200 bid 3. Troponins have peaked, f/u echocardiogram, check TSH, lipid panel Ha1c 4. Start JHONATHAN-I/ARB once renal fxn at baseline 5. Empiric abx for foot ulcer, check PVR 6. Thank you for consultative opportunity
[2019-09-02] MEDS: AMOXICILLIN 500 MG CAPSULE (FP) PO SCH (10:33)
[2019-09-02] MEDS: amLODIPine BESYLATE 10 MG TABLET (FP) PO SCH (10:33)
[2019-09-02] MEDS ORDERED: LABETALOL HCL 100 MG TABLET (FP) PO SCH (11:30)
--- NOTE | 2019-09-02 11:30 | EKG ---
Test Reason : Blood Pressure : / mmHG Vent. Rate : 068 BPM Atrial Rate : 068 BPM P-R Int : 142 ms QRS Dur : 092 ms QT Int : 400 ms P-R-T Axes : 065 017 141 degrees QTc Int : 425 ms NORMAL SINUS RHYTHM POSSIBLE LEFT ATRIAL ENLARGEMENT INFERIOR INFARCT , AGE UNDETERMINED NONSPECIFIC ST AND T WAVE ABNORMALITY ABNORMAL ECG Confirmed by SUKHDEV DEVLIN MD ([id number]) on 09/02/2019 11:30:25 AM Referred By: Priscilla AVILA Confirmed By:SUKHDEV DEVLIN MD
[2019-09-02] MEDS: TRIAMCINOLONE ACET 0.1% OINT 15 GM TUBE TP SCH ×2 (13:33→21:55)
--- NOTE | 2019-09-02 14:31 | PN ---
Progress Note (short form) - Note Progress Note: Vascular Surgery Pt seen and examined. Doing well. Left heel ulcer. Pt was in DR for 2-3 months. Developed the ulcer there. PE - Pt has palpable DP and PT pulses. There is slough in the wound. STart santyl to the wound daily. Circulation is intact. Please follow up in wound care clinic upon DC. -- [phone] Will then set up HBO for pt. Moises Morin DO
[2019-09-02] MEDS: COLLAGENASE CLOSTRIDIUM HIST. 30 GRAMS TUBE TP SCH (15:24)
--- NOTE | 2019-09-02 15:47 | CONSULT ---
Consult Consult Specialty:: Nephrology Reason for Consultation:: CKD - History of Present Illness Chief Complaint: sent in for HTN History of Present Illness: Pt is a 74 year old male with pmhx of CKD and HTN who was sent in from Dr Roberts [facility] for HTN. He was not symptomatic. I was called to evaluate him for elevated creatinine. Pt is aware that he has history of CKD. It was his first visit at Dr Roberts office. He denies shortness of breath or palpitations. He denies dysuria or hematuria. He denies nsaid use. He recently came from . He has had a rash for the last month infolving his chest abd arms and legs. He denies cough or hemoptysis. - History Source History Provided By: Patient, Medical Record - Past Medical History Cardio/Vascular: Yes: HTN Renal/: Yes: Renal Inusuff - Alcohol/Substance Use Hx Alcohol Use: No - Smoking History Smoking history: Never smoked Home Medications - Allergies Allergies/Adverse Reactions: Allergies Allergy/AdvReac Type Severity Reaction Status Date / Time No Known Allergies Allergy Verified 09/01/19 11:18 - Home Medications Home Medications: Ambulatory Orders Amoxicillin/Potassium Clav [Amox-Clav 500-125 mg Tablet] 500 mg PO BID 09/01/19 Labetalol HCl 100 mg PO BID 09/01/19 Family Medical History Family History: Denies Review of Systems - Review of Systems Constitutional: reports: Malaise Eyes: reports: No Symptoms HENT: reports: No Symptoms Neck: reports: No Symptoms Cardiovascular: reports: No Symptoms Respiratory: reports: No Symptoms Gastrointestinal: reports: No Symptoms Genitourinary: reports: No Symptoms Musculoskeletal: reports: No Symptoms Integumentary: reports: Rash Neurological: reports: No Symptoms Endocrine: reports: No Symptoms Hematology/Lymphatic: reports: No Symptoms Psychiatric: reports: No Symptoms Physical Exam Vital Signs: Vital Signs Temperature 98.4 F 09/02/19 14:42 Pulse Rate 79 09/02/19 14:42 Respiratory Rate 18 09/02/19 14:42 Blood Pressure 158/97 09/02/19 14:42 O2 Sat by Pulse Oximetry (%) 98 09/02/19 11:00 Constitutional: Yes: Calm Eyes: Yes: Conjunctiva Clear HENT: Yes: Atraumatic Neck: Yes: Supple Cardiovascular: Yes: S1, S2 Respiratory: Yes: CTA Bilaterally Gastrointestinal: Yes: Soft Renal/: Yes: WNL Musculoskeletal: Yes: WNL Edema: No Integumentary: Yes: Rash Neurological: Yes: Oriented Psychiatric: Yes: Oriented Labs: CBC, BMP 09/02/19 05:53 09/02/19 05:53 Laboratory Tests 06/30/19 09/01/19 09/01/19 14:16 11:45 12:45 Sodium Potassium Creatinine 3.1 H 3.2 H Urine Protein 3+ H Urine Blood 1+ H 09/02/19 05:53 Sodium 139 Potassium 3.8 Creatinine 2.9 H Urine Protein Urine Blood Imaging - Results Chest X-ray: Report Reviewed Problem List - Problems (1) [id number] kidney injury Code(s): N17.9 - ACUTE KIDNEY FAILURE, UNSPECIFIED; N18.9 - CHRONIC KIDNEY DISEASE, UNSPECIFIED Qualifiers: Chronic kidney disease stage: stage 3 (moderate) (2) Proteinuria Code(s): R80.9 - PROTEINURIA, UNSPECIFIED Qualifiers: Proteinuria type: unspecified Qualified Code(s): R80.9 - Proteinuria, unspecified Assessment/Plan Current Medications Generic Name Dose Route Start Last Admin Trade Name Freq PRN Reason Stop Dose Admin Amlodipine Besylate 10 mg 09/02/19 10:00 09/02/19 10:33 Norvasc - PO 10 mg DAILY BRODIE Administration Collagenase 1 applic 09/02/19 14:45 09/02/19 15:24 Santyl - TP 1 applic DAILY BRODIE Administration Protocol Labetalol HCl 200 mg 09/02/19 11:30 Normodyne - PO BID BRODIE Triamcinolone Acetonide 1 applic 09/02/19 14:00 09/02/19 13:33 Aristocort 0.1% Ointment - TP 1 applic TID BRODIE Administration Impression 1. CKD 2. HTN 3. cellulitis 4. rash 5. 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
[2019-09-02] MEDS: LABETALOL HCL 200 MG TABLET (FP) PO SCH (21:56)
[2019-09-03] MEDS: TRIAMCINOLONE ACET 0.1% OINT 15 GM TUBE TP SCH ×3 (06:11→21:31)
[2019-09-03 07:41] LABS: BASO % 0.8 % (0-2.0); EOS % 9.2 % (0-4.5); HEMATOCRIT 30.9 % (35.4-49); HEMOGLOBIN 10.4 GM/dL (11.7-16.9); LYMPH % 15.1 % (8-40); MCH 33.6 pg (25.7-33.7); MCHC 33.8 g/dl (32.0-35.9); MEAN CELL VOLUME 99.4 fl (80-96); MEAN PLT VOLUME 7.6 fl (7.5-11.1); MONO % 14.6 % (3.8-10.2); NEUT % 60.3 % (42.8-82.8); PLATELET COUNT 235 K/MM3 (134-434); RDW 17.7 % (11.9-15.9); WHITE BLOOD COUNT 12.9 K/mm3 (4.0-10.0)
[2019-09-03 08:14] LABS: BLOOD UREA NITROGEN 34.4 mg/dL (7-18); CALCIUM 9.4 mg/dL (8.5-10.1); CREATININE 3.1 mg/dL (0.55-1.3); POTASSIUM 3.8 mmol/L (3.5-5.1)
--- NOTE | 2019-09-03 10:38 | PN ---
Progress Note, Physician History of Present Illness: Asymptomatic, denies chest pain, dyspnea, JOHNSON. BP improved. - Current Medication List Current Medications: Active Medications Amlodipine Besylate (Norvasc -) 10 mg PO DAILY [facility] Last Admin: 09/02/19 10:33 Dose: 10 mg Collagenase (Santyl -) 1 applic TP DAILY [facility]; Protocol Last Admin: 09/02/19 15:24 Dose: 1 applic Labetalol HCl (Normodyne -) 200 mg PO BID [facility] Last Admin: 09/02/19 21:56 Dose: 200 mg Triamcinolone Acetonide (Aristocort 0.1% Ointment -) 1 applic TP TID [facility] Last Admin: 09/03/19 06:11 Dose: 1 applic - Objective Vital Signs: Vital Signs Temperature 98.5 F 09/03/19 06:00 Pulse Rate 71 09/03/19 06:00 Respiratory Rate 18 09/03/19 06:00 Blood Pressure 160/83 09/03/19 06:00 O2 Sat by Pulse Oximetry (%) 95 09/03/19 00:08 Constitutional: Yes: No Distress, Calm, Thin Neck: Yes: Supple Cardiovascular: Yes: Regular Rate and Rhythm Respiratory: Yes: Regular, CTA Bilaterally Gastrointestinal: Yes: Normal Bowel Sounds, Soft Edema: No Labs: CBC, BMP 09/03/19 05:50 09/03/19 05:50 - ....Imaging EKG: Report Reviewed (Tele: NSR) Problem List - Problems (1) Hypertensive heart disease Code(s): I11.9 - HYPERTENSIVE HEART DISEASE WITHOUT HEART FAILURE Qualifiers: Heart failure presence: without heart failure Qualified Code(s): I11.9 - Hypertensive heart disease without heart failure (2) [id number]-[id number] kidney injury Code(s): N17.9 - ACUTE KIDNEY FAILURE, UNSPECIFIED; N18.9 - CHRONIC KIDNEY DISEASE, UNSPECIFIED Qualifiers: Chronic kidney disease stage: stage 3 (moderate) (3) Proteinuria Code(s): R80.9 - PROTEINURIA, UNSPECIFIED Qualifiers: Proteinuria type: unspecified Qualified Code(s): R80.9 - Proteinuria, unspecified (4) Wound cellulitis Code(s): L03.90 - CELLULITIS, UNSPECIFIED (5) Demand ischemia Code(s): I24.8 - OTHER FORMS OF ACUTE ISCHEMIC HEART DISEASE Assessment/Plan 09/02/2019 kidney and bladder ultrasound shows bilateral renal cysts, moderate PVR w/o hydronephrosis 1. Hypertensive urgency improving 2. Demand ischemia 3. Acute on CKD with proteinuria 4. Left heel ulcer 5. Hyperlipidemia P: 1. Continue with amlodipine 10 mg once daily, increased labetolol 200 bid 2. Troponins have peaked, f/u echocardiogram, 3. Start JHONATHAN-I/ARB once renal fxn at baseline, check prt to machine adjuster leader case trim ratio 4. Wound care, HBO2 for heel ulcer
[2019-09-03 10:45] LABS: ANISOCYTOSIS 0; MACROCYTOSIS 0; PLATELET ESTIMATE NORMAL
[2019-09-03] MEDS: amLODIPine BESYLATE 10 MG TABLET (FP) PO SCH (10:48)
[2019-09-03] MEDS: LABETALOL HCL 200 MG TABLET (FP) PO SCH ×2 (10:48→21:30)
[2019-09-03] MEDS: COLLAGENASE CLOSTRIDIUM HIST. 30 GRAMS TUBE TP SCH (10:49)
--- NOTE | 2019-09-03 11:32 | ECHO ---
Name: KEVAN KELLY Exam:Adult Echocardiogram Study Date: 09/03/2019 08:44 AM Age: 74 yrs Reason For Study: Abnormal Ekg Height: 67 in Weight: 130 lb BSA: 1.7 m2 MMode/2D Measurements & Calculations IVSd: 1.0 cm Ao root diam: 3.3 cm LVIDd: 4.4 cm LA dimension: 3.3 cm LVIDs: 2.8 cm LVPWd: 1.0 cm LVPWs: 1.5 cm EDV(Reneich): 89.6 ml ESV(Reneich): 29.9 ml LAV (MOD-bp): 43.2 ml RV S Francois: 13.9 cm/sec Doppler Measurements & Calculations MV E max francois: 68.9 cm/sec Ao V2 max: 146.6 cm/sec MV A max francois: 100.4 cm/sec Ao max P.6 mmHg MV E/A: 0.69 AI P1/2t: 594.2 msec MV dec time: 0.19 sec AI max francois: 451.5 cm/sec LV V1 max P.3 mmHg AI max P.5 mmHg LV V1 max: 90.7 cm/sec AI dec slope: 222.6 cm/sec2 TR max francois: 259.0 cm/sec PA V2 max: 106.7 cm/sec TR max P.7 mmHg PA max P.6 mmHg Med Peak E' Francois: 3.6 cm/sec Med E/e': 19.2 Lat Peak E' Francois: 5.5 cm/sec Lat E/e': 12.4 Left Ventricle There is mild concentric left ventricular hypertrophy. Left ventricular systolic function is normal. Ejection Fraction = 60-65%. The transmitral spectral Doppler flow pattern is suggestive of impaired LV relaxat ion. Right Ventricle The right ventricle is normal in size and function. Atria The left atrium is borderline dilated. Right atrial size is normal. Mitral Valve The mitral valve is normal in structure and function. There is no mitral valve stenosis. There is mil d mitral regurgitation. Tricuspid Valve The tricuspid valve is normal in structure and function. There is mild tricuspid regurgitation. Right ventricular systolic pressure is elevated at 30-40mmHg. Aortic Valve The aortic valve opens well. No hemodynamically significant valvular aortic stenosis. Mild aortic regurgitation. Pulmonic Valve The pulmonic valve is not well seen, but is grossly normal. There is no pulmonic valvular stenosis. Great Vessels The aortic root is normal size. Pericardium/Pleura Trivial pericardial effusion not hemodynamically significant. Interpretation Summary There is mild concentric left ventricular hypertrophy. Left ventricular systolic function is normal. Ejection Fraction = 60-65%. The transmitral spectral Doppler flow pattern is suggestive of impaired LV relaxation. The right ventricle is normal in size and function. The left atrium is borderline dilated. There is mild mitral regurgitation. There is mild tricuspid regurgitation. Right ventricular systolic pressure is elevated at 30-40mmHg. Mild aortic regurgitation. Trivial pericardial effusion not hemodynamically significant MD Velasco *Francescone 09/03/2019 11:32 AM
--- NOTE | 2019-09-03 12:45 | PN ---
Progress Note, Physician History of Present Illness: Pt seen and examined at bedside. He is awake and alert. He denies shortness of breath. - Current Medication List Current Medications: Active Medications Amlodipine Besylate (Norvasc -) 10 mg PO DAILY [facility] Last Admin: 09/03/19 10:48 Dose: 10 mg Collagenase (Santyl -) 1 applic TP DAILY [facility]; Protocol Last Admin: 09/03/19 10:49 Dose: 1 applic Labetalol HCl (Normodyne -) 200 mg PO BID [facility] Last Admin: 09/03/19 10:48 Dose: 200 mg Triamcinolone Acetonide (Aristocort 0.1% Ointment -) 1 applic TP TID [facility] Last Admin: 09/03/19 06:11 Dose: 1 applic - Objective Vital Signs: Vital Signs Temperature 98.5 F 09/03/19 10:00 Pulse Rate 81 09/03/19 10:00 Respiratory Rate 18 09/03/19 11:00 Blood Pressure 149/75 09/03/19 10:00 O2 Sat by Pulse Oximetry (%) 95 09/03/19 11:00 Constitutional: Yes: Calm Eyes: Yes: Conjunctiva Clear HENT: Yes: Atraumatic Neck: Yes: Supple Cardiovascular: Yes: S1, S2 Respiratory: Yes: CTA Bilaterally Gastrointestinal: Yes: Soft Genitourinary: Yes: WNL Musculoskeletal: Yes: WNL Edema: No Integumentary: Yes: Rash Neurological: Yes: Oriented Psychiatric: Yes: Oriented Labs: CBC, BMP 09/03/19 05:50 09/03/19 05:50 Problem List - Problems (1) [id number] kidney injury Code(s): N17.9 - ACUTE KIDNEY FAILURE, UNSPECIFIED; N18.9 - CHRONIC KIDNEY DISEASE, UNSPECIFIED Qualifiers: Chronic kidney disease stage: stage 3 (moderate) (2) Proteinuria Code(s): R80.9 - PROTEINURIA, UNSPECIFIED Qualifiers: Proteinuria type: unspecified Qualified Code(s): R80.9 - Proteinuria, unspecified Assessment/Plan Current Medications Generic Name Dose Route Start Last Admin Trade Name Freq PRN Reason Stop Dose Admin Amlodipine Besylate 10 mg 09/02/19 10:00 09/03/19 10:48 Norvasc - PO 10 mg DAILY [facility] Administration Collagenase 1 applic 09/02/19 14:45 09/03/19 10:49 Santyl - TP 1 applic DAILY [facility] Administration Protocol Labetalol HCl 200 mg 09/02/19 11:30 09/03/19 10:48 Normodyne - PO 200 mg BID [facility] Administration Triamcinolone Acetonide 1 applic 09/02/19 14:00 09/03/19 06:11 Aristocort 0.1% Ointment - TP 1 applic TID [facility] Administration Laboratory Tests 09/03/19 09/03/19 05:50 05:50 RAGINI M-Kevyn Pending SANG Screen Pending c-ANCA Pending Proteinase 3 (PR3) Pending p-ANCA Pending Atypical p-ANCA Pending Myeloperoxidase Ab Pending Double Strand DNA Ab Pending Glomerular Base Memb Ab Pending Hep A IgM Ab Confirm Pending Hepatitis A Ab Total Pending Hep Bs Antigen Pending Hep Bs Antibody Pending Hep B Core Total Ab Pending Hep B Core IgM Ab Pending Hepatitis Be Antibody Pending Hepatitis Be Antigen Pending HCV Quantitation Pending Selected Entries 09/03/19 09/03/19 06:00 10:00 Blood Pressure 160/83 149/75 Impression 1. CKD 2. HTN 3. cellulitis 4. rash 5. protienuria Plan - follow serologies - monitor renal function - consider derm eval - possible renal biopsy next week - pt has not been on nsaids or asa - check prt to event manager ratio - bp is improving
--- NOTE | 2019-09-03 14:57 | CON.ID ---
Consult Consult Specialty:: infectious diseases Referred by:: hospitalist Reason for Consultation:: rash - Past Medical History Cardio/Vascular: Yes: HTN Renal/: Yes: Renal Inusuff - Alcohol/Substance Use Hx Alcohol Use: No - Smoking History Smoking history: Never smoked Home Medications - Allergies Allergies/Adverse Reactions: Allergies Allergy/AdvReac Type Severity Reaction Status Date / Time No Known Allergies Allergy Verified 09/01/19 11:18 - Home Medications Home Medications: Ambulatory Orders Amoxicillin/Potassium Clav [Amox-Clav 500-125 mg Tablet] 500 mg PO BID 09/01/19 Labetalol HCl 100 mg PO BID 09/01/19 Physical Exam Vital Signs: Vital Signs Temperature 98.1 F 09/03/19 13:47 Pulse Rate 72 09/03/19 13:47 Respiratory Rate 18 09/03/19 13:47 Blood Pressure 148/76 09/03/19 13:47 O2 Sat by Pulse Oximetry (%) 95 09/03/19 11:00 Labs: CBC, BMP 09/03/19 05:50 09/03/19 05:50
--- NOTE | 2019-09-03 18:49 | PN ---
Physical Exam: SUBJECTIVE: Patient seen and examined at the bedside. offers no complaints. OBJECTIVE: patient started on triamcinolone tid for rash on chest and arms thought to be due to amoxicillin, however, patient states rash calderon been present for over a month. bp improving. Patient is a 74 year old man with a history of HTN, hyperlipidemia, CKD who was sent from his PCP office to the ED for uncontrolled BP and abnormal EKG. Vital Signs Period Temp Pulse Resp BP Sys/Judd Pulse Ox Last 24 Hr 98.0 F-98.7 F 71-82 18-18 148-184/75-102 95-98 GENERAL: The patient is awake, alert, and fully oriented, in no acute distress. venezuelan speaking mostly. HEAD: Normal with no signs of trauma. EYES: PERRL, extraocular movements intact, sclera anicteric, conjunctiva clear. No ptosis. ENT: Ears normal, nares patent, oropharynx clear without exudates, moist mucous membranes. NECK: Trachea midline, full range of motion, supple. LUNGS: Breath sounds equal, clear to auscultation bilaterally, no wheezes, no crackles, no accessory muscle use. HEART: Regular rate and rhythm, S1, S2 without murmur, rub or gallop. ABDOMEN: Soft, nontender, nondistended, normoactive bowel sounds, no guarding, no rebound, no hepatosplenomegaly, no masses. EXTREMITIES: 2+ pulses, warm, well-perfused, no edema. NEUROLOGICAL: pink raised rash to bilateral arms, legs, chest. Laboratory Results - last 24 hr 09/03/19 09/03/19 09/03/19 05:50 05:50 05:50 WBC 12.9 H RBC 3.10 L Hgb 10.4 L Hct 30.9 L MCV 99.4 H MCH 33.6 MCHC 33.8 RDW 17.7 H Plt Count 235 MPV 7.6 Absolute Neuts (auto) 7.8 Neutrophils % 60.3 Neutrophils % (Manual) 52.7 Band Neutrophils % 0.0 Lymphocytes % 15.1 Lymphocytes % (Manual) 6.5 L D Monocytes % 14.6 H Monocytes % (Manual) 18 H Eosinophils % 9.2 H Eosinophils % (Manual) 12.9 H Basophils % 0.8 Basophils % (Manual) 1.1 Myelocytes % (Man) 2 D Promyelocytes % (Man) 0 Blast Cells % (Manual) 0 Nucleated RBC % 1 H Metamyelocytes 2 D Hypochromia 0 Platelet Estimate Normal Polychromasia 0 Poikilocytosis 0 Anisocytosis 0 Microcytosis 0 Macrocytosis 0 Sodium 138 Potassium 3.8 Chloride 107 Carbon Dioxide 25 Anion Gap 6 L BUN 34.4 H Creatinine 3.1 H Est GFR (CKD-EPI)AfAm 21.79 Est GFR (CKD-EPI)NonAf 18.80 Random Glucose 95 Hemoglobin A1c % 5.5 Calcium 9.4 Triglycerides 151 H Cholesterol 93 Total LDL Cholesterol 50 HDL Cholesterol 29 L TSH 3.61 Active Medications Generic Name Dose Route Start Last Admin Trade Name Freq PRN Reason Stop Dose Admin Amlodipine Besylate 10 mg 09/02/19 10:00 09/03/19 10:48 Norvasc - PO 10 mg DAILY [facility] Administration Collagenase 1 applic 09/02/19 14:45 09/03/19 10:49 Santyl - TP 1 applic DAILY [facility] Administration Protocol Labetalol HCl 200 mg 09/02/19 11:30 09/03/19 10:48 Normodyne - PO 200 mg BID [facility] Administration Triamcinolone Acetonide 1 applic 09/02/19 14:00 09/03/19 14:04 Aristocort 0.1% Ointment - TP 1 applic TID [facility] Administration ASSESSMENT/PLAN: Problem List - Problems (1) Hypertensive urgency Assessment/Plan: BP remains above goal and started on labetolol 200mg bid on amlodopine 10mg daily monitor bp and further titrate meds to maintain bp 140/90 Code(s): I16.0 - HYPERTENSIVE URGENCY (2) Hypertensive heart disease Code(s): I11.9 - HYPERTENSIVE HEART DISEASE WITHOUT HEART FAILURE Qualifiers: Heart failure presence: without heart failure Qualified Code(s): I11.9 - Hypertensive heart disease without heart failure (3) Rash and nonspecific skin eruption Assessment/Plan: continue Code(s): R21 - RASH AND OTHER NONSPECIFIC SKIN ERUPTION (4) Txypw-zo-gmhsosy kidney injury Assessment/Plan: being followed by renal for a possible kidney biopsy. monitor renal function bp improving Code(s): N17.9 - ACUTE KIDNEY FAILURE, UNSPECIFIED; N18.9 - CHRONIC KIDNEY DISEASE, UNSPECIFIED Qualifiers: Chronic kidney disease stage: stage 3 (moderate) Visit type - Emergency Visit Emergency Visit: Yes ED Registration Date: 09/02/19 Care time: The patient presented to the Emergency Department on the above date and was hospitalized for further evaluation of their emergent condition. - New Patient This patient is new to me today: Yes Date on this admission: 09/04/19 - Critical Care Critical Care patient: No - Discharge Referral Referred to [facility] No
[2019-09-04] MEDS: TRIAMCINOLONE ACET 0.1% OINT 15 GM TUBE TP SCH ×3 (05:58→22:16)
[2019-09-04 07:52] LABS: BASO % 1.1 % (0-2.0); EOS % 9.3 % (0-4.5); HEMATOCRIT 30.3 % (35.4-49); HEMOGLOBIN 10.2 GM/dL (11.7-16.9); LYMPH % 15.9 % (8-40); MCH 33.4 pg (25.7-33.7); MCHC 33.8 g/dl (32.0-35.9); MEAN CELL VOLUME 98.8 fl (80-96); MEAN PLT VOLUME 7.5 fl (7.5-11.1); MONO % 15.1 % (3.8-10.2); NEUT % 58.6 % (42.8-82.8); PLATELET COUNT 231 K/MM3 (134-434); RBC 3.06 M/mm3 (4.00-5.60); RDW 17.3 % (11.9-15.9); WHITE BLOOD COUNT 11.8 K/mm3 (4.0-10.0)
[2019-09-04 08:10] LABS: ALBUMIN 3.3 g/dl (3.4-5.0); BILIRUBIN,TOTAL 0.4 mg/dL (0.2-1); BLOOD UREA NITROGEN 34.1 mg/dL (7-18); CALCIUM 9.5 mg/dL (8.5-10.1); CREATININE 3.1 mg/dL (0.55-1.3); MAGNESIUM 2.1 mg/dL (1.8-2.4); POTASSIUM 3.6 mmol/L (3.5-5.1)
[2019-09-04 09:06] LABS: ANISOCYTOSIS 1+; MACROCYTOSIS 1+; PLATELET ESTIMATE NORMAL
[2019-09-04] MEDS: LABETALOL HCL 200 MG TABLET (FP) PO SCH ×2 (09:34→22:15)
[2019-09-04] MEDS: amLODIPine BESYLATE 10 MG TABLET (FP) PO SCH (09:34)
[2019-09-04] MEDS ORDERED: LABETALOL HCL 200 MG TABLET (FP) PO ONE (11:00)
--- NOTE | 2019-09-04 11:03 | PN ---
Progress Note (short form) - Note Progress Note: Renal follow up for JAY coverage for Dr. Blount Seen and examined at the bedside awake and alert offers no acute complaints no JOHNSON, chest pain, sob, fever or chills making urine Vital Signs Temperature 97.9 F 09/04/19 10:00 Pulse Rate 72 09/04/19 10:00 Respiratory Rate 18 09/04/19 10:00 Blood Pressure 185/90 H 09/04/19 10:00 O2 Sat by Pulse Oximetry (%) 99 09/03/19 21:00 Intake & Output 09/01/19 09/02/19 09/03/19 09/04/19 23:59 23:59 23:59 23:59 Intake Total 340 260 240 Balance 340 260 240 Weight 56.608 kg 56.245 kg 58.513 kg NAD awake and alert neck supple RRR CTA soft NT/ND no LE edema healing skin rash CBC, BMP 09/04/19 05:45 09/04/19 05:45 Current Medications Amlodipine Besylate (Norvasc -) 10 mg PO DAILY [facility] Last Admin: 09/04/19 09:34 Dose: 10 mg Collagenase (Santyl -) 1 applic TP DAILY [facility]; Protocol Last Admin: 09/03/19 10:49 Dose: 1 applic Labetalol HCl (Normodyne -) 200 mg PO ONCE ONE Stop: 09/04/19 11:01 Labetalol HCl (Normodyne -) 400 mg PO BID [facility] Triamcinolone Acetonide (Aristocort 0.1% Ointment -) 1 applic TP TID [facility] Last Admin: 09/04/19 05:58 Dose: 1 applic Impression 1. CKD 2. HTN 3. cellulitis 4. rash 5. protienuria Plan Renal function stable, no overt electrolyte or acid base disturbance serologic studies pending BP is above goal, increase labetalol to 400mg BID, continue amlodipine 10mg daily goal BP < 140/90 for possible renal biopsy this week Thank you Yeison Andres DO
--- NOTE | 2019-09-04 11:09 | PN ---
Progress Note, Physician History of Present Illness: Asymptomatic, denies chest pain, dyspnea, JOHNSON. BP improved. - Current Medication List Current Medications: Active Medications Amlodipine Besylate (Norvasc -) 10 mg PO DAILY [facility] Last Admin: 09/04/19 09:34 Dose: 10 mg Collagenase (Santyl -) 1 applic TP DAILY [facility]; Protocol Last Admin: 09/03/19 10:49 Dose: 1 applic Labetalol HCl (Normodyne -) 400 mg PO BID [facility] Triamcinolone Acetonide (Aristocort 0.1% Ointment -) 1 applic TP TID [facility] Last Admin: 09/04/19 05:58 Dose: 1 applic - Objective Vital Signs: Vital Signs Temperature 97.9 F 09/04/19 10:00 Pulse Rate 72 09/04/19 10:00 Respiratory Rate 18 09/04/19 10:00 Blood Pressure 185/90 H 09/04/19 10:00 O2 Sat by Pulse Oximetry (%) 99 09/03/19 21:00 Constitutional: Yes: No Distress, Calm Neck: Yes: Supple Cardiovascular: Yes: Regular Rate and Rhythm Respiratory: Yes: Regular, CTA Bilaterally Gastrointestinal: Yes: Normal Bowel Sounds, Soft Edema: No Labs: CBC, BMP 09/04/19 05:45 09/04/19 05:45 Problem List - Problems (1) Hypertensive heart disease Code(s): I11.9 - HYPERTENSIVE HEART DISEASE WITHOUT HEART FAILURE Qualifiers: Heart failure presence: without heart failure Qualified Code(s): I11.9 - Hypertensive heart disease without heart failure (2) Zhrmo-gm-znpocer kidney injury Code(s): N17.9 - ACUTE KIDNEY FAILURE, UNSPECIFIED; N18.9 - CHRONIC KIDNEY DISEASE, UNSPECIFIED Qualifiers: Chronic kidney disease stage: stage 3 (moderate) (3) Proteinuria Code(s): R80.9 - PROTEINURIA, UNSPECIFIED Qualifiers: Proteinuria type: unspecified Qualified Code(s): R80.9 - Proteinuria, unspecified (4) Wound cellulitis Code(s): L03.90 - CELLULITIS, UNSPECIFIED (5) Demand ischemia Code(s): I24.8 - OTHER FORMS OF ACUTE ISCHEMIC HEART DISEASE Assessment/Plan 09/02/2019 kidney and bladder ultrasound shows bilateral renal cysts, moderate PVR w/o hydronephrosis 09/03/2019 Echocardiogram: Mild cLVH normal LVEF 60-65%, abnl LV compliance, normal RV size and fxn, mild MR, TR RVSP 30-40 mmHg, mild AR 1. Hypertensive urgency 2. Demand ischemia 3. CKD with proteinuria 4. Left heel ulcer 5. Hyperlipidemia P: 1. Continue with amlodipine 10 mg once daily, increased labetolol 400 bid 2. Troponins have peaked, 3. Start JHONATHAN-I/ARB once renal fxn at baseline, check prt to apparel manager ratio, for possible renal biopsy this week 4. Wound care, HBO2 for heel ulcer
[2019-09-04] MEDS: COLLAGENASE CLOSTRIDIUM HIST. 30 GRAMS TUBE TP SCH (11:50)
--- NOTE | 2019-09-04 12:07 | PN ---
Progress Note, Physician History of Present Illness: stable no new issues - Current Medication List Current Medications: Active Medications Amlodipine Besylate (Norvasc -) 10 mg PO DAILY [facility] Last Admin: 09/04/19 09:34 Dose: 10 mg Collagenase (Santyl -) 1 applic TP DAILY [facility]; Protocol Last Admin: 09/04/19 11:50 Dose: 1 applic Labetalol HCl (Normodyne -) 400 mg PO BID [facility] Triamcinolone Acetonide (Aristocort 0.1% Ointment -) 1 applic TP TID [facility] Last Admin: 09/04/19 05:58 Dose: 1 applic - Objective Vital Signs: Vital Signs Temperature 97.9 F 09/04/19 10:00 Pulse Rate 72 09/04/19 10:00 Respiratory Rate 18 09/04/19 10:00 Blood Pressure 185/90 H 09/04/19 10:00 O2 Sat by Pulse Oximetry (%) 99 09/03/19 21:00 Constitutional: Yes: No Distress, Calm Cardiovascular: Yes: S1, S2 Respiratory: Yes: Regular, CTA Bilaterally Musculoskeletal: Yes: WNL Extremities: Yes: Other (rash) Neurological: Yes: Alert, Oriented Psychiatric: Yes: Alert, Oriented Labs: CBC, BMP 09/04/19 05:45 09/04/19 05:45 Assessment/Plan Problem List - Problems (1) Qbctf-[id number]-lmfrfwr kidney injury Code(s): N17.9 - ACUTE KIDNEY FAILURE, UNSPECIFIED; N18.9 - CHRONIC KIDNEY DISEASE, UNSPECIFIED Qualifiers: Chronic kidney disease stage: stage 3 (moderate) (2) Proteinuria Code(s): R80.9 - PROTEINURIA, UNSPECIFIED Qualifiers: Proteinuria type: unspecified Qualified Code(s): R80.9 - Proteinuria, unspecified rash plan no abx rest as per the team
[2019-09-04] MEDS: DOXYCYCLINE HYCLATE 100 MG CAPSULE PO SCH (16:59)
--- NOTE | 2019-09-04 17:55 | PN ---
Physical Exam: SUBJECTIVE: Patient seen and examined OBJECTIVE: patient started on triamcinolone tid for rash on chest and arms thought to be due to amoxicillin, however, patient states rash calderon been present for over a month. bp improving. Patient is a 74 year old man with a history of HTN, hyperlipidemia, CKD who was sent from his PCP office to the ED for uncontrolled BP and abnormal EKG. Vital Signs Period Temp Pulse Resp BP Sys/Judd Pulse Ox Last 24 Hr 97.5 F-98.6 F 71-83 18-20 137-185/80-93 99-99 GENERAL: The patient is awake, alert, and fully oriented, in no acute distress. japanese speaking mostly. HEAD: Normal with no signs of trauma. EYES: PERRL, extraocular movements intact, sclera anicteric, conjunctiva clear. No ptosis. ENT: Ears normal, nares patent, oropharynx clear without exudates, moist mucous membranes. NECK: Trachea midline, full range of motion, supple. LUNGS: Breath sounds equal, clear to auscultation bilaterally, no wheezes, no crackles, no accessory muscle use. HEART: Regular rate and rhythm, S1, S2 without murmur, rub or gallop. ABDOMEN: Soft, nontender, nondistended, normoactive bowel sounds, no guarding, no rebound, no hepatosplenomegaly, no masses. EXTREMITIES: 2+ pulses, warm, well-perfused, no edema. NEUROLOGICAL: pink raised rash to bilateral arms, legs, chest. Laboratory Results - last 24 hr 09/03/19 09/04/19 09/04/19 05:50 05:45 05:45 WBC 11.8 H RBC 3.06 L Hgb 10.2 L Hct 30.3 L MCV 98.8 H MCH 33.4 MCHC 33.8 RDW 17.3 H Plt Count 231 MPV 7.5 Absolute Neuts (auto) 6.9 Neutrophils % 58.6 Neutrophils % (Manual) 64.3 D Band Neutrophils % 0.0 Lymphocytes % 15.9 Lymphocytes % (Manual) 8.2 D Monocytes % 15.1 H Monocytes % (Manual) 13 H Eosinophils % 9.3 H Eosinophils % (Manual) 7.1 H Basophils % 1.1 Basophils % (Manual) 0.0 Myelocytes % (Man) 0 D Promyelocytes % (Man) 0 Blast Cells % (Manual) 0 Nucleated RBC % 1 H Metamyelocytes 0 D Platelet Estimate Normal Polychromasia 1+ Anisocytosis 1+ Macrocytosis 1+ Sodium 137 Potassium 3.6 Chloride 104 Carbon Dioxide 24 Anion Gap 9 BUN 34.1 H Creatinine 3.1 H Est GFR (CKD-EPI)AfAm 21.79 Est GFR (CKD-EPI)NonAf 18.80 Random Glucose 92 Calcium 9.5 Magnesium 2.1 Total Bilirubin 0.4 AST 20 ALT 23 Alkaline Phosphatase 47 Total Protein 9.0 H Albumin 3.3 L U Random Total Protein Urine Creatinine Protein/Creatinin Ratio Double Strand DNA Ab 3 09/04/19 12:00 WBC RBC Hgb Hct MCV MCH MCHC RDW Plt Count MPV Absolute Neuts (auto) Neutrophils % Neutrophils % (Manual) Band Neutrophils % Lymphocytes % Lymphocytes % (Manual) Monocytes % Monocytes % (Manual) Eosinophils % Eosinophils % (Manual) Basophils % Basophils % (Manual) Myelocytes % (Man) Promyelocytes % (Man) Blast Cells % (Manual) Nucleated RBC % Metamyelocytes Platelet Estimate Polychromasia Anisocytosis Macrocytosis Sodium Potassium Chloride Carbon Dioxide Anion Gap BUN Creatinine Est GFR (CKD-EPI)AfAm Est GFR (CKD-EPI)NonAf Random Glucose Calcium Magnesium Total Bilirubin AST ALT Alkaline Phosphatase Total Protein Albumin U Random Total Protein 197.9 H Urine Creatinine 151.0 Protein/Creatinin Ratio 1.3 Double Strand DNA Ab Active Medications Generic Name Dose Route Start Last Admin Trade Name Freq PRN Reason Stop Dose Admin Amlodipine Besylate 10 mg 09/02/19 10:00 09/04/19 09:34 Norvasc - PO 10 mg DAILY BRODIE Administration Collagenase 1 applic 09/02/19 14:45 09/04/19 11:50 Santyl - TP 1 applic DAILY BRODIE Administration Protocol Doxycycline Hyclate 100 mg 09/04/19 18:00 09/04/19 16:59 Vibramycin - PO 100 mg BID@1000,1800 BRODIE Administration Labetalol HCl 400 mg 09/04/19 11:00 Normodyne - PO BID BRODIE Triamcinolone Acetonide 1 applic 09/02/19 14:00 09/04/19 16:25 Aristocort 0.1% Ointment - TP 1 applic TID BRODIE Administration ASSESSMENT/PLAN: Problem List - Problems (1) Zjotl-mv-[id number] kidney injury Assessment/Plan: being followed by renal for a possible kidney biopsy. monitor renal function bp remains above goal, continue labetalol 400mg BID, continue amlodipine 10mg daily, hydralazine 25mg BID and uptitrate as needed Code(s): N17.9 - ACUTE KIDNEY FAILURE, UNSPECIFIED; N18.9 - CHRONIC KIDNEY DISEASE, UNSPECIFIED Qualifiers: Chronic kidney disease stage: stage 3 (moderate) (2) Elevated troponin Assessment/Plan: no chest pain followed by cardiology Code(s): R79.89 - OTHER SPECIFIED ABNORMAL FINDINGS OF BLOOD CHEMISTRY (3) Hypertensive urgency Assessment/Plan: BP remains above goal and started on labetolol 400mg bid on amlodopine 10mg daily monitor bp and further titrate meds to maintain bp 140/90 Code(s): I16.0 - HYPERTENSIVE URGENCY (4) Hypertensive heart disease Code(s): I11.9 - HYPERTENSIVE HEART DISEASE WITHOUT HEART FAILURE Qualifiers: Heart failure presence: without heart failure Qualified Code(s): I11.9 - Hypertensive heart disease without heart failure (5) Rash and nonspecific skin eruption Assessment/Plan: continue triamcinolone ointment and doxycycline dermatology consulted. Code(s): R21 - RASH AND OTHER NONSPECIFIC SKIN ERUPTION (6) Leukocytosis Code(s): D72.829 - ELEVATED WHITE BLOOD CELL COUNT, UNSPECIFIED (7) Heel ulcer Assessment/Plan: patient to follow with wound clinic as an outpatient on [facility] Code(s): L97.409 - NON-PRS CHRONIC ULCER OF UNSP HEEL AND MIDFOOT W UNSP SEVERT Visit type - Emergency Visit Emergency Visit: Yes ED Registration Date: 09/02/19 Care time: The patient presented to the Emergency Department on the above date and was hospitalized for further evaluation of their emergent condition. - New Patient This patient is new to me today: No - Critical Care Critical Care patient: No - Discharge Referral Referred to [facility] No
[2019-09-04 19:08] LABS: HEP B CORE AB, TOT Positive (Negative)
[2019-09-05] MEDS: amLODIPine BESYLATE 10 MG TABLET (FP) PO SCH ×2 (06:47→11:16)
[2019-09-05] MEDS: TRIAMCINOLONE ACET 0.1% OINT 15 GM TUBE TP SCH ×3 (06:52→22:29)
[2019-09-05 07:21] LABS: BASO % 0.7 % (0-2.0); EOS % 8.8 % (0-4.5); HEMATOCRIT 30.6 % (35.4-49); HEMOGLOBIN 10.3 GM/dL (11.7-16.9); LYMPH % 15.6 % (8-40); MCH 33.2 pg (25.7-33.7); MCHC 33.6 g/dl (32.0-35.9); MEAN CELL VOLUME 98.9 fl (80-96); MEAN PLT VOLUME 7.4 fl (7.5-11.1); MONO % 17.1 % (3.8-10.2); NEUT % 57.8 % (42.8-82.8); PLATELET COUNT 210 K/MM3 (134-434); RBC 3.09 M/mm3 (4.00-5.60); RDW 17.5 % (11.9-15.9); WHITE BLOOD COUNT 11.4 K/mm3 (4.0-10.0)
[2019-09-05 07:32] LABS: ALBUMIN 3.6 g/dl (3.4-5.0); BILIRUBIN,TOTAL 0.4 mg/dL (0.2-1); BLOOD UREA NITROGEN 39.2 mg/dL (7-18); CALCIUM 9.6 mg/dL (8.5-10.1); CREATININE 3.2 mg/dL (0.55-1.3); MAGNESIUM 2.2 mg/dL (1.8-2.4); POTASSIUM 3.8 mmol/L (3.5-5.1)
[2019-09-05 09:57] LABS: ANISOCYTOSIS 1+; MACROCYTOSIS 1+; PLATELET ESTIMATE NORMAL
[2019-09-05] MEDS: hydrALAZINE HCL 25 MG TABLET (FP) PO SCH ×2 (11:15→22:28)
[2019-09-05] MEDS: LABETALOL HCL 200 MG TABLET (FP) PO SCH ×2 (11:16→22:28)
--- NOTE | 2019-09-05 11:17 | PN ---
Progress Note (short form) - Note Progress Note: Renal follow up for JAY coverage for Dr. Blount Seen and examined at the bedside awake and alert no complaints making urine Vital Signs Temperature 98.1 F 09/05/19 10:00 Pulse Rate 86 09/05/19 10:00 Respiratory Rate 20 09/05/19 10:00 Blood Pressure 148/86 09/05/19 10:00 O2 Sat by Pulse Oximetry (%) 100 09/04/19 21:00 Intake & Output 09/02/19 09/03/19 09/04/19 09/05/19 23:59 23:59 23:59 23:59 Intake Total 340 260 490 Balance 340 260 490 Weight 56.245 kg 58.06 kg 58.786 kg NAD awake and alert neck supple RRR CTA soft NT/ND no LE edema healing skin rash CBC, BMP 09/05/19 05:25 09/05/19 05:25 Current Medications Amlodipine Besylate (Norvasc -) 10 mg PO DAILY [facility] Last Admin: 09/05/19 06:47 Dose: 10 mg Collagenase (Santyl -) 1 applic TP DAILY BRODIE; Protocol Last Admin: 09/04/19 11:50 Dose: 1 applic Doxycycline Hyclate (Vibramycin -) 100 mg PO BID@1000,1800 [facility] Last Admin: 09/04/19 16:59 Dose: 100 mg Hydralazine HCl (Apresoline -) 25 mg PO BID BRODIE Labetalol HCl (Normodyne -) 400 mg PO BID [facility] Last Admin: 09/04/19 22:15 Dose: 400 mg Triamcinolone Acetonide (Aristocort 0.1% Ointment -) 1 applic TP TID [facility] Last Admin: 09/05/19 06:52 Dose: 1 applic Impression 1. CKD 2. HTN 3. cellulitis 4. rash 5. protienuria Plan Renal function stable, no overt electrolyte or acid base disturbance SANG and Anti-DS DNA negative, HBV antigen negative BP is above goal, continue labetalol to 400mg BID, continue amlodipine 10mg daily, added hydralazine 25mg BID goal BP < 140/90 for possible renal biopsy this week Thank you Yeison Andres DO
[2019-09-05] MEDS: COLLAGENASE CLOSTRIDIUM HIST. 30 GRAMS TUBE TP SCH (11:18)
[2019-09-05] MEDS: DOXYCYCLINE HYCLATE 100 MG CAPSULE PO SCH ×2 (11:18→17:11)
--- NOTE | 2019-09-05 11:53 | PN ---
Progress Note, Physician History of Present Illness: stable no new issues - Current Medication List Current Medications: Active Medications Amlodipine Besylate (Norvasc -) 10 mg PO DAILY [facility] Last Admin: 09/05/19 11:16 Dose: Not Given Collagenase (Santyl -) 1 applic TP DAILY [facility]; Protocol Last Admin: 09/05/19 11:18 Dose: 1 applic Doxycycline Hyclate (Vibramycin -) 100 mg PO BID@1000,1800 [facility] Last Admin: 09/05/19 11:18 Dose: 100 mg Hydralazine HCl (Apresoline -) 25 mg PO BID [facility] Last Admin: 09/05/19 11:15 Dose: 25 mg Labetalol HCl (Normodyne -) 400 mg PO BID [facility] Last Admin: 09/05/19 11:16 Dose: 400 mg Triamcinolone Acetonide (Aristocort 0.1% Ointment -) 1 applic TP TID [facility] Last Admin: 09/05/19 06:52 Dose: 1 applic - Objective Vital Signs: Vital Signs Temperature 98.1 F 09/05/19 10:00 Pulse Rate 86 09/05/19 10:00 Respiratory Rate 20 09/05/19 10:00 Blood Pressure 148/86 09/05/19 10:00 O2 Sat by Pulse Oximetry (%) 100 09/04/19 21:00 Constitutional: Yes: No Distress, Calm Cardiovascular: Yes: S1, S2 Respiratory: Yes: Regular, CTA Bilaterally Gastrointestinal: Yes: Normal Bowel Sounds, Soft Musculoskeletal: Yes: WNL Extremities: Yes: WNL Integumentary: Yes: Rash (chest,legs) Neurological: Yes: Alert, Oriented Labs: CBC, BMP 09/05/19 05:25 09/05/19 05:25 Assessment/Plan Problem List - Problems (1) Diuiz-ff-sngpeik kidney injury Code(s): N17.9 - ACUTE KIDNEY FAILURE, UNSPECIFIED; N18.9 - CHRONIC KIDNEY DISEASE, UNSPECIFIED Qualifiers: Chronic kidney disease stage: stage 3 (moderate) (2) Proteinuria Code(s): R80.9 - PROTEINURIA, UNSPECIFIED Qualifiers: Proteinuria type: unspecified Qualified Code(s): R80.9 - Proteinuria, unspecified rash plan no abx rest as per the team consider dermatology rest as per the team
--- NOTE | 2019-09-05 18:13 | PN ---
Physical Exam: SUBJECTIVE: Patient seen and examined, offers no complaints. OBJECTIVE: patient started on triamcinolone tid for rash on chest and arms thought to be due to amoxicillin, however, patient states rash calderon been present for over a month. bp improving. Patient is a 74 year old man with a history of HTN, hyperlipidemia, CKD who was sent from his PCP office to the ED for uncontrolled BP, abnormal EKG and found to have elevated troponins. Vital Signs Period Temp Pulse Resp BP Sys/Judd Pulse Ox Last 24 Hr 97.5 F-98.7 F 73-86 18-20 148-195/85-97 99-100 GENERAL: The patient is awake, alert, and fully oriented, in no acute distress. ghanaian speaking mostly. HEAD: Normal with no signs of trauma. EYES: PERRL, extraocular movements intact, sclera anicteric, conjunctiva clear. No ptosis. ENT: Ears normal, nares patent, oropharynx clear without exudates, moist mucous membranes. NECK: Trachea midline, full range of motion, supple. LUNGS: Breath sounds equal, clear to auscultation bilaterally, no wheezes, no crackles, no accessory muscle use. HEART: Regular rate and rhythm, S1, S2 without murmur, rub or gallop. ABDOMEN: Soft, nontender, nondistended, normoactive bowel sounds, no guarding, no rebound, no hepatosplenomegaly, no masses. EXTREMITIES: 2+ pulses, warm, well-perfused, no edema. NEUROLOGICAL: pink raised rash to bilateral arms, legs, chest. Laboratory Results - last 24 hr 09/03/19 09/04/19 09/05/19 05:50 12:00 05:25 WBC RBC Hgb Hct MCV MCH MCHC RDW Plt Count MPV Absolute Neuts (auto) Neutrophils % Neutrophils % (Manual) Band Neutrophils % Lymphocytes % Lymphocytes % (Manual) Monocytes % Monocytes % (Manual) Eosinophils % Eosinophils % (Manual) Basophils % Basophils % (Manual) Myelocytes % (Man) Promyelocytes % (Man) Blast Cells % (Manual) Nucleated RBC % Metamyelocytes Platelet Estimate Polychromasia Anisocytosis Macrocytosis Schistocytes Sodium 136 Potassium 3.8 Chloride 104 Carbon Dioxide 25 Anion Gap 7 L BUN 39.2 H Creatinine 3.2 H Est GFR (CKD-EPI)AfAm 20.97 Est GFR (CKD-EPI)NonAf 18.09 Random Glucose 95 Calcium 9.6 Magnesium 2.2 Total Bilirubin 0.4 AST 24 ALT 25 Alkaline Phosphatase 47 Total Protein 9.0 H Albumin 3.6 Urine Eosinophils None seen Hep A IgM Ab Confirm Negative Hepatitis A Ab Total Positive H Hep Bs Antigen Negative Hep Bs Antibody Reactive Hep B Core Total Ab Positive H Hep B Core IgM Ab Negative Hepatitis Be Antibody Positive H Hepatitis Be Antigen Negative 09/05/19 05:25 WBC 11.4 H RBC 3.09 L Hgb 10.3 L Hct 30.6 L MCV 98.9 H MCH 33.2 MCHC 33.6 RDW 17.5 H Plt Count 210 MPV 7.4 L Absolute Neuts (auto) 6.6 Neutrophils % 57.8 Neutrophils % (Manual) 63.6 Band Neutrophils % 0.0 Lymphocytes % 15.6 Lymphocytes % (Manual) 12.1 D Monocytes % 17.1 H Monocytes % (Manual) 10 Eosinophils % 8.8 H Eosinophils % (Manual) 7.1 H Basophils % 0.7 Basophils % (Manual) 1.0 D Myelocytes % (Man) 1 D Promyelocytes % (Man) 0 Blast Cells % (Manual) 0 Nucleated RBC % 0 Metamyelocytes 0 Platelet Estimate Normal Polychromasia 1+ Anisocytosis 1+ Macrocytosis 1+ Schistocytes 1+ Sodium Potassium Chloride Carbon Dioxide Anion Gap BUN Creatinine Est GFR (CKD-EPI)AfAm Est GFR (CKD-EPI)NonAf Random Glucose Calcium Magnesium Total Bilirubin AST ALT Alkaline Phosphatase Total Protein Albumin Urine Eosinophils Hep A IgM Ab Confirm Hepatitis A Ab Total Hep Bs Antigen Hep Bs Antibody Hep B Core Total Ab Hep B Core IgM Ab Hepatitis Be Antibody Hepatitis Be Antigen Active Medications Generic Name Dose Route Start Last Admin Trade Name Freq PRN Reason Stop Dose Admin Amlodipine Besylate 10 mg 09/02/19 10:00 09/05/19 11:16 Norvasc - PO Not Given DAILY BRODIE Collagenase 1 applic 09/02/19 14:45 09/05/19 11:18 Santyl - TP 1 applic DAILY BRODIE Administration Protocol Doxycycline Hyclate 100 mg 09/04/19 18:00 09/05/19 17:11 Vibramycin - PO 100 mg BID@1000,1800 BRODIE Administration Hydralazine HCl 25 mg 09/05/19 10:00 09/05/19 11:15 Apresoline - PO 25 mg BID BRODIE Administration Labetalol HCl 400 mg 09/04/19 11:00 09/05/19 11:16 Normodyne - PO 400 mg BID BRODIE Administration Triamcinolone Acetonide 1 applic 09/02/19 14:00 09/05/19 14:10 Aristocort 0.1% Ointment - TP 1 applic TID BRODIE Administration ASSESSMENT/PLAN: Problem List - Problems (1) Tdlyu-[id number]-[id number] kidney injury Assessment/Plan: being followed by renal for a possible kidney biopsy. monitor renal function bp remains above goal, continue labetalol 400mg BID, continue amlodipine 10mg daily, hydralazine 25mg BID and uptitrate as needed Code(s): N17.9 - ACUTE KIDNEY FAILURE, UNSPECIFIED; N18.9 - CHRONIC KIDNEY DISEASE, UNSPECIFIED Qualifiers: Chronic kidney disease stage: stage 3 (moderate) (2) Elevated troponin Assessment/Plan: no chest pain followed by cardiology Code(s): R79.89 - OTHER SPECIFIED ABNORMAL FINDINGS OF BLOOD CHEMISTRY (3) Hypertensive urgency Assessment/Plan: BP remains above goal and started on labetolol 400mg bid on amlodopine 10mg daily monitor bp and further titrate meds to maintain bp 140/90 Code(s): I16.0 - HYPERTENSIVE URGENCY (4) Hypertensive heart disease Code(s): I11.9 - HYPERTENSIVE HEART DISEASE WITHOUT HEART FAILURE Qualifiers: Heart failure presence: without heart failure Qualified Code(s): I11.9 - Hypertensive heart disease without heart failure (5) Rash and nonspecific skin eruption Assessment/Plan: continue triamcinolone ointment and doxycycline dermatology consulted. Code(s): R21 - RASH AND OTHER NONSPECIFIC SKIN ERUPTION (6) Leukocytosis Code(s): D72.829 - ELEVATED WHITE BLOOD CELL COUNT, UNSPECIFIED (7) Heel ulcer Assessment/Plan: patient to follow with wound clinic [facility] an outpatient [facility] Code(s): L97.409 - NON-PRS CHRONIC ULCER OF UNSP HEEL AND MIDFOOT W UNSP SEVERT Visit type - Emergency Visit Emergency Visit: Yes ED Registration Date: 09/02/19 Care time: The patient presented to the Emergency Department on the above date and was hospitalized for further evaluation of their emergent condition. - New Patient This patient is new to me today: No - Critical Care Critical Care patient: No - Discharge Referral Referred to [facility] No
--- NOTE | 2019-09-05 18:17 | PN ---
Progress Note, Physician History of Present Illness: Asymptomatic, denies chest pain, dyspnea, JOHNSON. BP improved. - Current Medication List Current Medications: Active Medications Amlodipine Besylate (Norvasc -) 10 mg PO DAILY [facility] Last Admin: 09/05/19 11:16 Dose: Not Given Collagenase (Santyl -) 1 applic TP DAILY [facility]; Protocol Last Admin: 09/05/19 11:18 Dose: 1 applic Doxycycline Hyclate (Vibramycin -) 100 mg PO BID@1000,1800 [facility] Last Admin: 09/05/19 17:11 Dose: 100 mg Hydralazine HCl (Apresoline -) 25 mg PO BID [facility] Last Admin: 09/05/19 11:15 Dose: 25 mg Labetalol HCl (Normodyne -) 400 mg PO BID [facility] Last Admin: 09/05/19 11:16 Dose: 400 mg Triamcinolone Acetonide (Aristocort 0.1% Ointment -) 1 applic TP TID [facility] Last Admin: 09/05/19 14:10 Dose: 1 applic - Objective Vital Signs: Vital Signs Temperature 97.5 F L 09/05/19 14:00 Pulse Rate 81 09/05/19 14:00 Respiratory Rate 20 09/05/19 14:00 Blood Pressure 152/95 09/05/19 14:00 O2 Sat by Pulse Oximetry (%) 99 09/05/19 09:00 Constitutional: Yes: No Distress, Calm, Thin Neck: Yes: Supple Cardiovascular: Yes: Regular Rate and Rhythm Respiratory: Yes: Regular, CTA Bilaterally Gastrointestinal: Yes: Normal Bowel Sounds, Soft Edema: No Labs: CBC, BMP 09/05/19 05:25 09/05/19 05:25 - ....Imaging EKG: Report Reviewed (Tele: NSR) Problem List - Problems (1) Hypertensive heart disease Code(s): I11.9 - HYPERTENSIVE HEART DISEASE WITHOUT HEART FAILURE Qualifiers: Heart failure presence: without heart failure Qualified Code(s): I11.9 - Hypertensive heart disease without heart failure (2) Gvmxl-ly-gyvjsal kidney injury Code(s): N17.9 - ACUTE KIDNEY FAILURE, UNSPECIFIED; N18.9 - CHRONIC KIDNEY DISEASE, UNSPECIFIED Qualifiers: Chronic kidney disease stage: stage 3 (moderate) (3) Proteinuria Code(s): R80.9 - PROTEINURIA, UNSPECIFIED Qualifiers: Proteinuria type: unspecified Qualified Code(s): R80.9 - Proteinuria, unspecified (4) Wound cellulitis Code(s): L03.90 - CELLULITIS, UNSPECIFIED (5) Demand ischemia Code(s): I24.8 - OTHER FORMS OF ACUTE ISCHEMIC HEART DISEASE Assessment/Plan 09/02/2019 kidney and bladder ultrasound shows bilateral renal cysts, moderate PVR w/o hydronephrosis 09/03/2019 Echocardiogram: Mild cLVH normal LVEF 60-65%, abnl LV compliance, normal RV size and fxn, mild MR, TR RVSP 30-40 mmHg, mild AR 1. Hypertensive urgency improving 2. Demand ischemia 3. CKD with proteinuria 4. Left heel ulcer 5. Hyperlipidemia P: 1. Continue with amlodipine 10 mg qd, labetolol 400 bid, added hydralazine 25 bid 2. Troponins have peaked 3. Start JHONATHAN-I/ARB once renal fxn at baseline, for possible renal biopsy this week 4. Wound care, HBO2 for heel ulcer
[2019-09-06] MEDS: TRIAMCINOLONE ACET 0.1% OINT 15 GM TUBE TP SCH ×3 (06:46→22:05)
[2019-09-06 07:00] LABS: BASO % 0.5 % (0-2.0); EOS % 7.8 % (0-4.5); HEMATOCRIT 30.7 % (35.4-49); HEMOGLOBIN 10.4 GM/dL (11.7-16.9); LYMPH % 17.7 % (8-40); MCH 33.2 pg (25.7-33.7); MCHC 33.8 g/dl (32.0-35.9); MEAN CELL VOLUME 98.5 fl (80-96); MEAN PLT VOLUME 7.5 fl (7.5-11.1); MONO % 16.7 % (3.8-10.2); NEUT % 57.3 % (42.8-82.8); PLATELET COUNT 217 K/MM3 (134-434); RBC 3.12 M/mm3 (4.00-5.60); WHITE BLOOD COUNT 10.6 K/mm3 (4.0-10.0)
[2019-09-06 07:23] LABS: ALBUMIN 3.3 g/dl (3.4-5.0); BILIRUBIN,TOTAL 0.3 mg/dL (0.2-1); BLOOD UREA NITROGEN 38.4 mg/dL (7-18); CALCIUM 9.4 mg/dL (8.5-10.1); CREATININE 3.1 mg/dL (0.55-1.3); MAGNESIUM 2.2 mg/dL (1.8-2.4); PHOSPHOROUS 4.2 mg/dL (2.5-4.9); POTASSIUM 3.9 mmol/L (3.5-5.1); TOT PROT 8.9 g/dl (6.4-8.2)
[2019-09-06] MEDS: LABETALOL HCL 200 MG TABLET (FP) PO SCH ×2 (09:33→22:05)
[2019-09-06] MEDS: DOXYCYCLINE HYCLATE 100 MG CAPSULE PO SCH ×2 (09:33→17:18)
[2019-09-06] MEDS: amLODIPine BESYLATE 10 MG TABLET (FP) PO SCH (09:33)
[2019-09-06] MEDS: COLLAGENASE CLOSTRIDIUM HIST. 30 GRAMS TUBE TP SCH (09:33)
[2019-09-06] MEDS: hydrALAZINE HCL 25 MG TABLET (FP) PO SCH ×2 (09:33→22:05)
[2019-09-06 09:42] LABS: ANISOCYTOSIS 1+; MACROCYTOSIS 1+; PLATELET ESTIMATE NORMAL; TARGET CELLS 1+
[2019-09-06 10:08] LABS: ANTIGLOMERULAR BASEMENT MEN.AB 9 units (0-20)
--- NOTE | 2019-09-06 11:49 | PN ---
Physical Exam: SUBJECTIVE: Patient seen and examined OBJECTIVE: kidney biopsy to be done as an outpatient ------ Patient is a 74 year old man with a history of HTN, hyperlipidemia, CKD who was sent from his PCP office to the ED for uncontrolled BP, abnormal EKG and found to have elevated troponins with worsening JAY. Vital Signs Period Temp Pulse Resp BP Sys/Judd Pulse Ox Last 24 Hr 97.5 F-98.6 F 73-86 20-20 145-156/75-95 97-97 GENERAL: The patient is awake, alert, and fully oriented, in no acute distress. ukrainian speaking mostly. HEAD: Normal with no signs of trauma. EYES: PERRL, extraocular movements intact, sclera anicteric, conjunctiva clear. No ptosis. ENT: Ears normal, nares patent, oropharynx clear without exudates, moist mucous membranes. NECK: Trachea midline, full range of motion, supple. LUNGS: Breath sounds equal, clear to auscultation bilaterally, no wheezes, no crackles, no accessory muscle use. HEART: Regular rate and rhythm, S1, S2 without murmur, rub or gallop. ABDOMEN: Soft, nontender, nondistended, normoactive bowel sounds, no guarding, no rebound, no hepatosplenomegaly, no masses. EXTREMITIES: 2+ pulses, warm, well-perfused, no edema. NEUROLOGICAL: pink raised rash to bilateral arms, legs, chest. Laboratory Results - last 24 hr 09/03/19 09/04/19 09/06/19 05:50 12:00 06:31 WBC RBC Hgb Hct MCV MCH MCHC RDW Plt Count MPV Absolute Neuts (auto) Neutrophils % Neutrophils % (Manual) Band Neutrophils % Lymphocytes % Lymphocytes % (Manual) Monocytes % Monocytes % (Manual) Eosinophils % Eosinophils % (Manual) Basophils % Basophils % (Manual) Myelocytes % (Man) Promyelocytes % (Man) Blast Cells % (Manual) Nucleated RBC % Metamyelocytes Hypochromia Platelet Estimate Polychromasia Poikilocytosis Anisocytosis Microcytosis Macrocytosis Target Cells Sodium 137 Potassium 3.9 Chloride 106 Carbon Dioxide 23 Anion Gap 7 L BUN 38.4 H Creatinine 3.1 H Est GFR (CKD-EPI)AfAm 21.79 Est GFR (CKD-EPI)NonAf 18.80 Random Glucose 97 Calcium 9.4 Phosphorus 4.2 Magnesium 2.2 Total Bilirubin 0.3 AST 20 ALT 24 Alkaline Phosphatase 49 Total Protein 8.9 H Albumin 3.3 L Urine Eosinophils None seen Glomerular Base Memb Ab 9 09/06/19 06:31 WBC 10.6 H RBC 3.12 L Hgb 10.4 L Hct 30.7 L MCV 98.5 H MCH 33.2 MCHC 33.8 RDW 18.0 H Plt Count 217 MPV 7.5 Absolute Neuts (auto) 6.1 Neutrophils % 57.3 Neutrophils % (Manual) 57.0 Band Neutrophils % 3.0 Lymphocytes % 17.7 Lymphocytes % (Manual) 10.0 Monocytes % 16.7 H Monocytes % (Manual) 18 H Eosinophils % 7.8 H Eosinophils % (Manual) 7.0 H Basophils % 0.5 Basophils % (Manual) 1.0 Myelocytes % (Man) 1 Promyelocytes % (Man) 0 Blast Cells % (Manual) 0 Nucleated RBC % 1 H Metamyelocytes 0 Hypochromia 0 Platelet Estimate Normal Polychromasia 1+ Poikilocytosis 0 Anisocytosis 1+ Microcytosis 0 Macrocytosis 1+ Target Cells 1+ Sodium Potassium Chloride Carbon Dioxide Anion Gap BUN Creatinine Est GFR (CKD-EPI)AfAm Est GFR (CKD-EPI)NonAf Random Glucose Calcium Phosphorus Magnesium Total Bilirubin AST ALT Alkaline Phosphatase Total Protein Albumin Urine Eosinophils Glomerular Base Memb Ab Active Medications Generic Name Dose Route Start Last Admin Trade Name Raffiq PRN Reason Stop Dose Admin Amlodipine Besylate 10 mg 09/02/19 10:00 09/06/19 09:33 Norvasc - PO 10 mg DAILY BRODIE Administration Collagenase 1 applic 09/02/19 14:45 09/06/19 09:33 Santyl - TP 1 applic DAILY [facility] Administration Protocol Doxycycline Hyclate 100 mg 09/04/19 18:00 09/06/19 09:33 Vibramycin - PO 100 mg BID@1000,1800 BRODIE Administration Hydralazine HCl 25 mg 09/05/19 10:00 09/06/19 09:33 Apresoline - PO 25 mg BID BRODIE Administration Labetalol HCl 400 mg 09/04/19 11:00 09/06/19 09:33 Normodyne - PO 400 mg BID BRODIE Administration Triamcinolone Acetonide 1 applic 09/02/19 14:00 09/06/19 06:46 Aristocort 0.1% Ointment - TP 1 applic TID BRODIE Administration ASSESSMENT/PLAN: Problem List - Problems (1) Bcggp-ia-sphquzv kidney injury Assessment/Plan: being followed by renal for a possible kidney biopsy, however, since he is getting a stress test, kidney biopsy will need to be done outpatient monitor renal function Code(s): N17.9 - ACUTE KIDNEY FAILURE, UNSPECIFIED; N18.9 - CHRONIC KIDNEY DISEASE, UNSPECIFIED Qualifiers: Chronic kidney disease stage: stage 3 (moderate) (2) Elevated troponin Assessment/Plan: no chest pain followed by cardiology Code(s): R79.89 - OTHER SPECIFIED ABNORMAL FINDINGS OF BLOOD CHEMISTRY (3) Hypertensive urgency Assessment/Plan: BP improved. continue labetalol 400mg BID, continue amlodipine 10mg daily, hydralazine 25mg BID and uptitrate as needed Code(s): I16.0 - HYPERTENSIVE URGENCY (4) Hypertensive heart disease Code(s): I11.9 - HYPERTENSIVE HEART DISEASE WITHOUT HEART FAILURE Qualifiers: Heart failure presence: without heart failure Qualified Code(s): I11.9 - Hypertensive heart disease without heart failure (5) Rash and nonspecific skin eruption Assessment/Plan: continue triamcinolone ointment and doxycycline dermatology to see as an outpatient. Code(s): R21 - RASH AND OTHER NONSPECIFIC SKIN ERUPTION (6) Leukocytosis Code(s): D72.829 - ELEVATED WHITE BLOOD CELL COUNT, UNSPECIFIED (7) Heel ulcer Assessment/Plan: patient to follow with wound clinic as an outpatient on [facility] Code(s): L97.409 - NON-PRS CHRONIC ULCER OF UNSP HEEL AND MIDFOOT W UNSP SEVERT Visit type - Emergency Visit Emergency Visit: Yes ED Registration Date: 09/02/19 Care time: The patient presented to the Emergency Department on the above date and was hospitalized for further evaluation of their emergent condition. - New Patient This patient is new to me today: No - Critical Care Critical Care patient: No - Discharge Referral Referred to [facility] No
--- NOTE | 2019-09-06 12:46 | PN ---
Progress Note, Physician History of Present Illness: stable no new issues patient comfortable - Current Medication List Current Medications: Active Medications Amlodipine Besylate (Norvasc -) 10 mg PO DAILY [facility] Last Admin: 09/06/19 09:33 Dose: 10 mg Collagenase (Santyl -) 1 applic TP DAILY [facility]; Protocol Last Admin: 09/06/19 09:33 Dose: 1 applic Doxycycline Hyclate (Vibramycin -) 100 mg PO BID@1000,1800 [facility] Last Admin: 09/06/19 09:33 Dose: 100 mg Hydralazine HCl (Apresoline -) 25 mg PO BID [facility] Last Admin: 09/06/19 09:33 Dose: 25 mg Labetalol HCl (Normodyne -) 400 mg PO BID [facility] Last Admin: 09/06/19 09:33 Dose: 400 mg Triamcinolone Acetonide (Aristocort 0.1% Ointment -) 1 applic TP TID [facility] Last Admin: 09/06/19 06:46 Dose: 1 applic - Objective Vital Signs: Vital Signs Temperature 98.5 F 09/06/19 08:55 Pulse Rate 73 09/06/19 08:55 Respiratory Rate 20 09/06/19 08:55 Blood Pressure 152/79 09/06/19 08:55 O2 Sat by Pulse Oximetry (%) 97 09/06/19 08:54 Constitutional: Yes: No Distress, Calm Cardiovascular: Yes: S1, S2 Respiratory: Yes: Regular, CTA Bilaterally Musculoskeletal: Yes: WNL Extremities: Yes: WNL Integumentary: Yes: Rash Neurological: Yes: Alert, Oriented Psychiatric: Yes: Alert, Oriented Labs: CBC, BMP 09/06/19 06:31 09/06/19 06:31 Assessment/Plan Problem List - Problems (1) [id number]-np-jukqbft kidney injury Code(s): N17.9 - ACUTE KIDNEY FAILURE, UNSPECIFIED; N18.9 - CHRONIC KIDNEY DISEASE, UNSPECIFIED Qualifiers: Chronic kidney disease stage: stage 3 (moderate) (2) Proteinuria Code(s): R80.9 - PROTEINURIA, UNSPECIFIED Qualifiers: Proteinuria type: unspecified Qualified Code(s): R80.9 - Proteinuria, unspecified rash plan no abx rest as per the team consider dermatology rest as per the team
--- NOTE | 2019-09-06 14:39 | PN ---
Progress Note, Physician History of Present Illness: Pt seen and examined at bedside. he denies shortness of breath. - Current Medication List Current Medications: Active Medications Amlodipine Besylate (Norvasc -) 10 mg PO DAILY [facility] Last Admin: 09/06/19 09:33 Dose: 10 mg Collagenase (Santyl -) 1 applic TP DAILY [facility]; Protocol Last Admin: 09/06/19 09:33 Dose: 1 applic Doxycycline Hyclate (Vibramycin -) 100 mg PO BID@1000,1800 [facility] Last Admin: 09/06/19 09:33 Dose: 100 mg Hydralazine HCl (Apresoline -) 25 mg PO BID [facility] Last Admin: 09/06/19 09:33 Dose: 25 mg Labetalol HCl (Normodyne -) 400 mg PO BID [facility] Last Admin: 09/06/19 09:33 Dose: 400 mg Triamcinolone Acetonide (Aristocort 0.1% Ointment -) 1 applic TP TID [facility] Last Admin: 09/06/19 14:36 Dose: 1 applic - Objective Vital Signs: Vital Signs Temperature 98.5 F 09/06/19 08:55 Pulse Rate 73 09/06/19 08:55 Respiratory Rate 20 09/06/19 08:55 Blood Pressure 152/79 09/06/19 08:55 O2 Sat by Pulse Oximetry (%) 97 09/06/19 08:54 Constitutional: Yes: Calm Eyes: Yes: Conjunctiva Clear HENT: Yes: Atraumatic Neck: Yes: Supple Cardiovascular: Yes: S1, S2 Respiratory: Yes: CTA Bilaterally Gastrointestinal: Yes: Soft Musculoskeletal: Yes: WNL Edema: LLE: Trace, RLE: Trace Integumentary: Yes: Rash Neurological: Yes: Oriented Labs: CBC, BMP 09/06/19 06:31 09/06/19 06:31 Problem List - Problems (1) Ozjyc-gg-[id number] kidney injury Code(s): N17.9 - ACUTE KIDNEY FAILURE, UNSPECIFIED; N18.9 - CHRONIC KIDNEY DISEASE, UNSPECIFIED Qualifiers: Chronic kidney disease stage: stage 3 (moderate) (2) Proteinuria Code(s): R80.9 - PROTEINURIA, UNSPECIFIED Qualifiers: Proteinuria type: unspecified Qualified Code(s): R80.9 - Proteinuria, unspecified Assessment/Plan Current Medications Generic Name Dose Route Start Last Admin Trade Name Freq PRN Reason Stop Dose Admin Amlodipine Besylate 10 mg 09/02/19 10:00 09/06/19 09:33 Norvasc - PO 10 mg DAILY [facility] Administration Collagenase 1 applic 09/02/19 14:45 09/06/19 09:33 Santyl - TP 1 applic DAILY [facility] Administration Protocol Doxycycline Hyclate 100 mg 09/04/19 18:00 09/06/19 09:33 Vibramycin - PO 100 mg BID@1000,1800 [facility] Administration Hydralazine HCl 25 mg 09/05/19 10:00 09/06/19 09:33 Apresoline - PO 25 mg BID [facility] Administration Labetalol HCl 400 mg 09/04/19 11:00 09/06/19 09:33 Normodyne - PO 400 mg BID [facility] Administration Triamcinolone Acetonide 1 applic 09/02/19 14:00 09/06/19 14:36 Aristocort 0.1% Ointment - TP 1 applic TID [facility] Administration Impression 1. CKD 2. HTN 3. cellulitis 4. rash 5. protienuria Plan - increase dose of hydralazine - renal biopsy - monitor bp - pt has not been on nsaids or asa - consider derm eval for rash - bp is improving
--- NOTE | 2019-09-06 15:44 | PN ---
Progress Note, Physician History of Present Illness: This 74 year old mainly Nigerian speaking male with a significant past medical history of hypertension, chronic kidney disease and hyperlipidemia referred to the emergency department with elevated blood pressure and found to have an abnormal EKG at clinic. 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 ER course was notable for hypertensive urgency. He was started on an IV nicardipine gtt with improvement in blood pressures. He also received amlodipine 10 mg tablet. He was found to have an elevated troponin of 0.09 since declining and abnormal EKG with strain pattern. Patient is asymptomatic and denied headache, chest pain, dizziness, true syncope , palpitations, shortness of breath, orthopnea, PNE pr LE edema, reports medication and diet compliance, denies NSAID use. - Current Medication List Current Medications: Active Medications Amlodipine Besylate (Norvasc -) 10 mg PO DAILY [facility] Last Admin: 09/06/19 09:33 Dose: 10 mg Collagenase (Santyl -) 1 applic TP DAILY [facility]; Protocol Last Admin: 09/06/19 09:33 Dose: 1 applic Doxycycline Hyclate (Vibramycin -) 100 mg PO BID@1000,1800 [facility] Last Admin: 09/06/19 09:33 Dose: 100 mg Hydralazine HCl (Apresoline -) 25 mg PO BID [facility] Last Admin: 09/06/19 09:33 Dose: 25 mg Labetalol HCl (Normodyne -) 400 mg PO BID [facility] Last Admin: 09/06/19 09:33 Dose: 400 mg Triamcinolone Acetonide (Aristocort 0.1% Ointment -) 1 applic TP TID [facility] Last Admin: 09/06/19 14:36 Dose: 1 applic - Objective Vital Signs: Vital Signs Temperature 98.5 F 09/06/19 08:55 Pulse Rate 73 09/06/19 08:55 Respiratory Rate 20 09/06/19 08:55 Blood Pressure 152/79 09/06/19 08:55 O2 Sat by Pulse Oximetry (%) 97 09/06/19 08:54 Eyes: Yes: WNL, Conjunctiva Clear, EOM Intact HENT: Yes: WNL, Atraumatic, Normocephalic Neck: Yes: WNL, Supple, Trachea Midline Cardiovascular: Yes: WNL, Regular Rate and Rhythm Respiratory: Yes: WNL, Regular, CTA Bilaterally Gastrointestinal: Yes: WNL, Normal Bowel Sounds Genitourinary: Yes: WNL Musculoskeletal: Yes: WNL Extremities: Yes: WNL Edema: No Integumentary: Yes: WNL Neurological: Yes: WNL, Alert, Oriented ...Motor Strength: WNL Psychiatric: Yes: WNL Labs: CBC, BMP 09/06/19 06:31 09/06/19 06:31 Assessment/Plan 09/02/2019 kidney and bladder ultrasound shows bilateral renal cysts, moderate PVR w/o hydronephrosis 09/03/2019 Echocardiogram: Mild cLVH normal LVEF 60-65%, abnl LV compliance, normal RV size and fxn, mild MR, TR RVSP 30-40 mmHg, mild AR 1. Hypertensive urgency improving 2. Demand ischemia 3. CKD with proteinuria 4. Left heel ulcer 5. Hyperlipidemia P: 1. Continue with amlodipine 10 mg qd, labetolol 400 bid, added hydralazine 25 bid 2. Troponins have peaked 3. Start JHONATHAN-I/ARB once renal fxn at baseline, for possible renal biopsy this week 4. Wound care, HBO2 for heel ulcer 5. Risk startification -stress test when stable.
[2019-09-06 17:06] LABS: ATYPICAL pANCA <1:20 titer (Neg:<1:20); C-ANCA <1:20 titer (Neg:<1:20)
[2019-09-06] MEDS ORDERED: POLYETHYLENE GLYCOL 3350 119 GM BTL PO ONE (17:55)
[2019-09-07 07:39] LABS: INR 1.09 (0.83-1.09); PROTHROMBIN TIME (PATIENT) 12.9 SEC (9.7-13.0)
[2019-09-07] MEDS: hydrALAZINE HCL 25 MG TABLET (FP) PO SCH ×3 (07:57→21:51)
[2019-09-07] MEDS: amLODIPine BESYLATE 10 MG TABLET (FP) PO SCH ×2 (07:57→09:51)
[2019-09-07] MEDS: LABETALOL HCL 200 MG TABLET (FP) PO SCH ×3 (07:58→21:51)
[2019-09-07] MEDS: TRIAMCINOLONE ACET 0.1% OINT 15 GM TUBE TP SCH ×3 (07:58→21:51)
[2019-09-07] MEDS: DOXYCYCLINE HYCLATE 100 MG CAPSULE PO SCH ×2 (09:50→18:00)
[2019-09-07] MEDS: COLLAGENASE CLOSTRIDIUM HIST. 30 GRAMS TUBE TP SCH (09:52)
--- NOTE | 2019-09-07 12:32 | PN ---
Progress Note, Physician - Current Medication List Current Medications: Active Medications Amlodipine Besylate (Norvasc -) 10 mg PO DAILY [facility] Last Admin: 09/07/19 09:51 Dose: Not Given Collagenase (Santyl -) 1 applic TP DAILY [facility]; Protocol Last Admin: 09/07/19 09:52 Dose: 1 applic Doxycycline Hyclate (Vibramycin -) 100 mg PO BID@1000,1800 [facility] Last Admin: 09/07/19 09:50 Dose: 100 mg Hydralazine HCl (Apresoline -) 25 mg PO BID [facility] Last Admin: 09/07/19 09:51 Dose: Not Given Labetalol HCl (Normodyne -) 400 mg PO BID [facility] Last Admin: 09/07/19 09:51 Dose: Not Given Triamcinolone Acetonide (Aristocort 0.1% Ointment -) 1 applic TP TID [facility] Last Admin: 09/07/19 07:58 Dose: 1 applic - Objective Vital Signs: Vital Signs Temperature 98.8 F 09/07/19 08:17 Pulse Rate 81 09/07/19 08:17 Respiratory Rate 20 09/07/19 08:19 Blood Pressure 174/90 H 09/07/19 08:17 O2 Sat by Pulse Oximetry (%) 96 09/07/19 08:19 Labs: CBC, BMP 09/06/19 06:31 09/06/19 06:31 INR, PTT INR 1.09 (0.83-1.09) 09/07/19 06:20
--- NOTE | 2019-09-07 12:35 | CONSULT ---
Consult - text type - Consultation Consultation Note: called to see patient for a rash on legs and arms. Exam: eczematous eruption on both ankles compatible with stasis dermatitis . Both arms from bicep area down are Xerotic with an exzematous eruption. Discussed skin care with patient who will apply triamcinolone QD and apply small amount of vaseline. Follow up as Outpatient. Thank You
--- NOTE | 2019-09-07 14:56 | PN ---
Progress Note, Physician History of Present Illness: This 74 year old mainly Macanese speaking male with a significant past medical history of hypertension, chronic kidney disease and hyperlipidemia referred to the emergency department with elevated blood pressure and found to have an abnormal EKG at clinic. Patient was advised by his manager fixed income to report to the ED for further evaluation. ER course was notable for hypertensive urgency. He was started on an IV nicardipine gtt with improvement in blood pressures. He also received amlodipine 10 mg tablet. He was found to have an elevated troponin of 0.09 since declining and abnormal EKG with strain pattern. Patient is asymptomatic and denied headache, chest pain, dizziness, true syncope , palpitations, shortness of breath, orthopnea, PNE pr LE edema, reports medication and diet compliance, denies NSAID use. - Current Medication List Current Medications: Active Medications Amlodipine Besylate (Norvasc -) 10 mg PO DAILY [facility] Last Admin: 09/07/19 09:51 Dose: Not Given Collagenase (Santyl -) 1 applic TP DAILY [facility]; Protocol Last Admin: 09/07/19 09:52 Dose: 1 applic Doxycycline Hyclate (Vibramycin -) 100 mg PO BID@1000,1800 [facility] Last Admin: 09/07/19 09:50 Dose: 100 mg Hydralazine HCl (Apresoline -) 25 mg PO BID [facility] Last Admin: 09/07/19 09:51 Dose: Not Given Labetalol HCl (Normodyne -) 400 mg PO BID [facility] Last Admin: 09/07/19 09:51 Dose: Not Given Triamcinolone Acetonide (Aristocort 0.1% Ointment -) 1 applic TP BID [facility] Last Admin: 09/07/19 14:08 Dose: 1 applic - Objective Vital Signs: Vital Signs Temperature 98.8 F 09/07/19 08:17 Pulse Rate 81 09/07/19 08:17 Respiratory Rate 20 09/07/19 08:19 Blood Pressure 174/90 H 09/07/19 08:17 O2 Sat by Pulse Oximetry (%) 96 09/07/19 08:19 Eyes: Yes: WNL, Conjunctiva Clear, EOM Intact HENT: Yes: WNL, Atraumatic, Normocephalic Neck: Yes: WNL, Supple, Trachea Midline Cardiovascular: Yes: WNL, Regular Rate and Rhythm Respiratory: Yes: WNL, Regular, CTA Bilaterally Gastrointestinal: Yes: WNL, Normal Bowel Sounds Genitourinary: Yes: WNL Musculoskeletal: Yes: WNL Extremities: Yes: WNL Edema: No Integumentary: Yes: WNL Neurological: Yes: WNL, Alert, Oriented ...Motor Strength: WNL Psychiatric: Yes: WNL Labs: CBC, BMP 09/06/19 06:31 09/06/19 06:31 INR, PTT INR 1.09 (0.83-1.09) 09/07/19 06:20 Assessment/Plan 09/02/2019 kidney and bladder ultrasound shows bilateral renal cysts, moderate PVR w/o hydronephrosis 09/03/2019 Echocardiogram: Mild cLVH normal LVEF 60-65%, abnl LV compliance, normal RV size and fxn, mild MR, TR RVSP 30-40 mmHg, mild AR 1. Hypertensive urgency improving 2. Demand ischemia 3. CKD with proteinuria 4. Left heel ulcer 5. Hyperlipidemia P: 1. Continue with amlodipine 10 mg qd, labetolol 400 bid, added hydralazine 25 bid 2. Troponins have peaked 3. Start JHONATHAN-I/ARB once renal fxn at baseline, for possible renal biopsy this week 4. Wound care, HBO2 for heel ulcer 5. Risk startification -stress test when stable.
--- NOTE | 2019-09-07 15:30 | PN ---
Progress Note, Physician History of Present Illness: Pt seen and examined at bedside. He is awake and alert. He denies shortness of breath. - Current Medication List Current Medications: Active Medications Amlodipine Besylate (Norvasc -) 10 mg PO DAILY [facility] Last Admin: 09/07/19 09:51 Dose: Not Given Collagenase (Santyl -) 1 applic TP DAILY [facility]; Protocol Last Admin: 09/07/19 09:52 Dose: 1 applic Doxycycline Hyclate (Vibramycin -) 100 mg PO BID@1000,1800 [facility] Last Admin: 09/07/19 09:50 Dose: 100 mg Hydralazine HCl (Apresoline -) 25 mg PO BID [facility] Last Admin: 09/07/19 09:51 Dose: Not Given Labetalol HCl (Normodyne -) 400 mg PO BID [facility] Last Admin: 09/07/19 09:51 Dose: Not Given Triamcinolone Acetonide (Aristocort 0.1% Ointment -) 1 applic TP BID [facility] Last Admin: 09/07/19 14:08 Dose: 1 applic - Objective Vital Signs: Vital Signs Temperature 98.8 F 09/07/19 08:17 Pulse Rate 81 09/07/19 08:17 Respiratory Rate 20 09/07/19 08:19 Blood Pressure 174/90 H 09/07/19 08:17 O2 Sat by Pulse Oximetry (%) 96 09/07/19 08:19 Constitutional: Yes: Calm Eyes: Yes: Conjunctiva Clear HENT: Yes: Atraumatic Neck: Yes: Supple Cardiovascular: Yes: S1, S2 Respiratory: Yes: CTA Bilaterally Gastrointestinal: Yes: Soft Genitourinary: Yes: WNL Musculoskeletal: Yes: WNL Edema: No Integumentary: Yes: Rash Neurological: Yes: Oriented Psychiatric: Yes: Oriented Labs: CBC, BMP 09/06/19 06:31 09/06/19 06:31 INR, PTT INR 1.09 (0.83-1.09) 09/07/19 06:20 Problem List - Problems (1) Yyptt-yr-bkhgwjr kidney injury Code(s): N17.9 - ACUTE KIDNEY FAILURE, UNSPECIFIED; N18.9 - CHRONIC KIDNEY DISEASE, UNSPECIFIED Qualifiers: Chronic kidney disease stage: stage 3 (moderate) (2) Proteinuria Code(s): R80.9 - PROTEINURIA, UNSPECIFIED Qualifiers: Proteinuria type: unspecified Qualified Code(s): R80.9 - Proteinuria, unspecified Assessment/Plan Current Medications Generic Name Dose Route Start Last Admin Trade Name Anette PRN Reason Stop Dose Admin Amlodipine Besylate 10 mg 09/02/19 10:00 09/07/19 09:51 Norvasc - PO Not Given DAILY [facility] Collagenase 1 applic 09/02/19 14:45 09/07/19 09:52 Santyl - TP 1 applic DAILY [facility] Administration Protocol Doxycycline Hyclate 100 mg 09/04/19 18:00 09/07/19 09:50 Vibramycin - PO 100 mg BID@1000,1800 [facility] Administration Hydralazine HCl 25 mg 09/05/19 10:00 09/07/19 09:51 Apresoline - PO Not Given BID [facility] Labetalol HCl 400 mg 09/04/19 11:00 09/07/19 09:51 Normodyne - PO Not Given BID [facility] Triamcinolone Acetonide 1 applic 09/07/19 12:45 09/07/19 14:08 Aristocort 0.1% Ointment - TP 1 applic BID [facility] Administration Laboratory Tests 09/03/19 09/03/19 05:50 05:50 RAGINI M-Kevyn Pending SANG Screen Negative c-ANCA <1:20 Proteinase 3 (PR3) <3.5 p-ANCA <1:20 Atypical p-ANCA <1:20 Myeloperoxidase Ab <9.0 Double Strand DNA Ab 3 Glomerular Base Memb Ab 9 Hep Bs Antigen Negative Hep Bs Antibody Reactive Hep B Core Total Ab Positive H Hep B Core IgM Ab Negative Impression 1. CKD 2. HTN 3. cellulitis 4. rash 5. protienuria Plan - serologies negative - follow stress results - kidney biopsy can be done as outpt in future, pt will follow with Dr Owen - pt has not been on nsaids or asa - derm in put appreciated
--- NOTE | 2019-09-07 18:48 | PN ---
Physical Exam: SUBJECTIVE: Patient seen and examined, denies discomfort. OBJECTIVE: patient had part 1 of stress test today that he will complete tomorrow, then can be discharged home. kidney biopsy to be done as an outpatient seen by dermatology today ------ Patient is a 74 year old man with a history of HTN, hyperlipidemia, CKD who was sent from his PCP office to the ED for uncontrolled BP, abnormal EKG and found to have elevated troponins with worsening JAY. Vital Signs Period Temp Pulse Resp BP Sys/Judd Pulse Ox Last 24 Hr 98.4 F-98.8 F 72-89 18-20 133-185/75-94 96-96 GENERAL: The patient is awake, alert, and fully oriented, in no acute distress. honduran speaking mostly. HEAD: Normal with no signs of trauma. EYES: PERRL, extraocular movements intact, sclera anicteric, conjunctiva clear. No ptosis. ENT: Ears normal, nares patent, oropharynx clear without exudates, moist mucous membranes. NECK: Trachea midline, full range of motion, supple. LUNGS: Breath sounds equal, clear to auscultation bilaterally, no wheezes, no crackles, no accessory muscle use. HEART: Regular rate and rhythm, S1, S2 without murmur, rub or gallop. ABDOMEN: Soft, nontender, nondistended, normoactive bowel sounds, no guarding, no rebound, no hepatosplenomegaly, no masses. EXTREMITIES: 2+ pulses, warm, well-perfused, no edema. NEUROLOGICAL: pink raised rash to bilateral arms, legs, chest. Laboratory Results - last 24 hr 09/03/19 09/07/19 05:50 06:20 PT with INR 12.90 INR 1.09 HCV Quantitation Hcv not detected HCV RNA log copies/mL TNP Active Medications Generic Name Dose Route Start Last Admin Trade Name Freq PRN Reason Stop Dose Admin Amlodipine Besylate 10 mg 09/02/19 10:00 09/07/19 09:51 Norvasc - PO Not Given DAILY [facility] Collagenase 1 applic 09/02/19 14:45 09/07/19 09:52 Santyl - TP 1 applic DAILY [facility] Administration Protocol Doxycycline Hyclate 100 mg 09/04/19 18:00 09/07/19 18:00 Vibramycin - PO 100 mg BID@1000,1800 [facility] Administration Hydralazine HCl 25 mg 09/05/19 10:00 09/07/19 09:51 Apresoline - PO Not Given BID [facility] Labetalol HCl 400 mg 09/04/19 11:00 09/07/19 09:51 Normodyne - PO Not Given BID [facility] Triamcinolone Acetonide 1 applic 09/07/19 12:45 09/07/19 14:08 Aristocort 0.1% Ointment - TP 1 applic BID [facility] Administration ASSESSMENT/PLAN: Problem List - Problems (1) Qzmfv-yy-ancphkd kidney injury Assessment/Plan: being followed by renal for a possible kidney biopsy, however, since he is getting a stress test, kidney biopsy will need to be done outpatient monitor renal function Code(s): N17.9 - ACUTE KIDNEY FAILURE, UNSPECIFIED; N18.9 - CHRONIC KIDNEY DISEASE, UNSPECIFIED Qualifiers: Chronic kidney disease stage: stage 3 (moderate) (2) Elevated troponin Assessment/Plan: no chest pain followed by cardiology Code(s): R79.89 - OTHER SPECIFIED ABNORMAL FINDINGS OF BLOOD CHEMISTRY (3) Hypertensive urgency Assessment/Plan: BP improved. continue labetalol 400mg BID, continue amlodipine 10mg daily, hydralazine 25mg BID and uptitrate as needed Code(s): I16.0 - HYPERTENSIVE URGENCY (4) Hypertensive heart disease Code(s): I11.9 - HYPERTENSIVE HEART DISEASE WITHOUT HEART FAILURE Qualifiers: Heart failure presence: without heart failure Qualified Code(s): I11.9 - Hypertensive heart disease without heart failure (5) Rash and nonspecific skin eruption Assessment/Plan: continue triamcinolone ointment and doxycycline dermatology to see as an outpatient. Code(s): R21 - RASH AND OTHER NONSPECIFIC SKIN ERUPTION (6) Leukocytosis Code(s): D72.829 - ELEVATED WHITE BLOOD CELL COUNT, UNSPECIFIED (7) Heel ulcer Assessment/Plan: patient to follow with wound clinic as an outpatient [facility] Code(s): L97.409 - NON-PRS CHRONIC ULCER OF UNSP HEEL AND MIDFOOT W UNSP SEVERT Visit type - Emergency Visit Emergency Visit: Yes ED Registration Date: 09/02/19 Care time: The patient presented to the Emergency Department on the above date and was hospitalized for further evaluation of their emergent condition. - New Patient This patient is new to me today: No - Critical Care Critical Care patient: No - Discharge Referral Referred to [facility] Med [facility] No
--- NOTE | 2019-09-08 08:21 | PN ---
Progress Note, Physician History of Present Illness: Patient is a 74 year old man with a history of HTN, hyperlipidemia, CKD who was sent from his PCP office to the ED for uncontrolled BP, abnormal EKG and found to have elevated troponins with worsening JAY. - Current Medication List Current Medications: Active Medications Amlodipine Besylate (Norvasc -) 10 mg PO DAILY [facility] Last Admin: 09/07/19 09:51 Dose: Not Given Collagenase (Santyl -) 1 applic TP DAILY [facility]; Protocol Last Admin: 09/07/19 09:52 Dose: 1 applic Doxycycline Hyclate (Vibramycin -) 100 mg PO BID@1000,1800 [facility] Last Admin: 09/07/19 18:00 Dose: 100 mg Hydralazine HCl (Apresoline -) 25 mg PO BID [facility] Last Admin: 09/07/19 21:51 Dose: 25 mg Labetalol HCl (Normodyne -) 400 mg PO BID [facility] Last Admin: 09/07/19 21:51 Dose: 400 mg Triamcinolone Acetonide (Aristocort 0.1% Ointment -) 1 applic TP BID [facility] Last Admin: 09/07/19 21:51 Dose: 1 applic - Objective Vital Signs: Vital Signs Temperature 98.3 F 09/08/19 06:00 Pulse Rate 84 09/08/19 06:00 Respiratory Rate 20 09/08/19 06:00 Blood Pressure 134/67 09/08/19 06:00 O2 Sat by Pulse Oximetry (%) 97 09/07/19 21:00 Labs: CBC, BMP 09/06/19 06:31 09/06/19 06:31 INR, PTT INR 1.09 (0.83-1.09) 09/07/19 06:20 Problem List - Problems (1) Boggy-fr-wlasftz kidney injury Assessment/Plan: kidney biopsy can be done as outpt in future, pt will follow with Dr Owen Code(s): N17.9 - ACUTE KIDNEY FAILURE, UNSPECIFIED; N18.9 - CHRONIC KIDNEY DISEASE, UNSPECIFIED Qualifiers: Chronic kidney disease stage: stage 3 (moderate) (2) Demand ischemia Code(s): I24.8 - OTHER FORMS OF ACUTE ISCHEMIC HEART DISEASE (3) Elevated troponin Assessment/Plan: Continue with amlodipine 10 mg qd, labetolol 400 bid, added hydralazine 25 bid 2. Troponins have peaked 3. Start JHONATHAN-I/ARB once renal fxn at baseline, for possible renal biopsy this week 4. Wound care, HBO2 for heel ulcer Code(s): R79.89 - OTHER SPECIFIED ABNORMAL FINDINGS OF BLOOD CHEMISTRY (4) Heel ulcer Code(s): L97.409 - NON-PRS CHRONIC ULCER OF UNSP HEEL AND MIDFOOT W UNSP SEVERT (5) Hypertensive heart disease Code(s): I11.9 - HYPERTENSIVE HEART DISEASE WITHOUT HEART FAILURE Qualifiers: Heart failure presence: without heart failure Qualified Code(s): I11.9 - Hypertensive heart disease without heart failure (6) Hypertensive urgency Code(s): I16.0 - HYPERTENSIVE URGENCY (7) Leukocytosis Code(s): D72.829 - ELEVATED WHITE BLOOD CELL COUNT, UNSPECIFIED (8) Rash and nonspecific skin eruption Assessment/Plan: eczematous eruption on both ankles compatible with stasis dermatitis . Both arms from bicep area down are Xerotic with an exzematous eruption. Discussed skin care with patient who will apply triamcinolone QD and apply small amount of vaseline. Follow up as Outpatient. Thank You Code(s): R21 - RASH AND OTHER NONSPECIFIC SKIN ERUPTION
[2019-09-08] MEDS: LABETALOL HCL 200 MG TABLET (FP) PO SCH (10:00)
[2019-09-08] MEDS ORDERED: REGADENOSON 0.4 MG/5 ML PRE-FILLED SYRINGE IVPUSH ONE ×2 (10:05→10:15)
[2019-09-08] MEDS: COLLAGENASE CLOSTRIDIUM HIST. 30 GRAMS TUBE TP SCH (10:08)
[2019-09-08] MEDS: TRIAMCINOLONE ACET 0.1% OINT 15 GM TUBE TP SCH (10:08)
[2019-09-08] MEDS: hydrALAZINE HCL 25 MG TABLET (FP) PO SCH (10:08)
[2019-09-08] MEDS: amLODIPine BESYLATE 10 MG TABLET (FP) PO SCH (10:08)
[2019-09-08 10:18] LABS: BASO % 0.8 % (0-2.0); HEMATOCRIT 32.1 % (35.4-49); HEMOGLOBIN 10.6 GM/dL (11.7-16.9); LYMPH % 17.4 % (8-40); MCH 33.1 pg (25.7-33.7); MCHC 33.1 g/dl (32.0-35.9); MEAN CELL VOLUME 99.9 fl (80-96); MEAN PLT VOLUME 7.3 fl (7.5-11.1); MONO % 14.6 % (3.8-10.2); NEUT % 58.2 % (42.8-82.8); PLATELET COUNT 236 K/MM3 (134-434); RBC 3.21 M/mm3 (4.00-5.60); RDW 17.8 % (11.9-15.9); WHITE BLOOD COUNT 11.1 K/mm3 (4.0-10.0)
[2019-09-08 10:46] LABS: ALBUMIN 3.6 g/dl (3.4-5.0); BILIRUBIN,TOTAL 0.4 mg/dL (0.2-1); BLOOD UREA NITROGEN 46.1 mg/dL (7-18); CALCIUM 10.1 mg/dL (8.5-10.1); CREATININE 3.3 mg/dL (0.55-1.3); MAGNESIUM 2.2 mg/dL (1.8-2.4); POTASSIUM 3.9 mmol/L (3.5-5.1); TOT PROT 9.8 g/dl (6.4-8.2)
[2019-09-08 11:24] LABS: ANISOCYTOSIS 0; MACROCYTOSIS 0; PLATELET ESTIMATE NORMAL
--- NOTE | 2019-09-08 12:23 | PN ---
Progress Note, Physician History of Present Illness: This 74 year old mainly [place] speaking male with a significant past medical history of hypertension, chronic kidney disease and hyperlipidemia referred to the emergency department with elevated blood pressure and found to have an abnormal EKG at clinic. Patient was advised by his branch office administrator to report to the ED for further evaluation. ER course was notable for hypertensive urgency. He was started on an IV nicardipine gtt with improvement in blood pressures. He also received amlodipine 10 mg tablet. He was found to have an elevated troponin of 0.09 since declining and abnormal EKG with strain pattern. Patient is asymptomatic and denied headache, chest pain, dizziness, true syncope , palpitations, shortness of breath, orthopnea, PNE pr LE edema, reports medication and diet compliance, denies NSAID use. - Current Medication List Current Medications: Active Medications Amlodipine Besylate (Norvasc -) 10 mg PO DAILY [facility] Last Admin: 09/08/19 10:08 Dose: 10 mg Collagenase (Santyl -) 1 applic TP DAILY [facility]; Protocol Last Admin: 09/08/19 10:08 Dose: 1 applic Doxycycline Hyclate (Vibramycin -) 100 mg PO BID@1000,1800 [facility] Last Admin: 09/07/19 18:00 Dose: 100 mg Hydralazine HCl (Apresoline -) 25 mg PO BID [facility] Last Admin: 09/08/19 10:08 Dose: 25 mg Labetalol HCl (Normodyne -) 400 mg PO BID [facility] Last Admin: 09/07/19 21:51 Dose: 400 mg Triamcinolone Acetonide (Aristocort 0.1% Ointment -) 1 applic TP BID [facility] Last Admin: 09/08/19 10:08 Dose: 1 applic - Objective Vital Signs: Vital Signs Temperature 98.3 F 09/08/19 06:00 Pulse Rate 84 09/08/19 06:00 Respiratory Rate 20 09/08/19 06:00 Blood Pressure 134/67 09/08/19 06:00 O2 Sat by Pulse Oximetry (%) 97 09/07/19 21:00 Eyes: Yes: WNL, Conjunctiva Clear, EOM Intact HENT: Yes: WNL, Atraumatic, Normocephalic Neck: Yes: WNL, Supple, Trachea Midline Cardiovascular: Yes: WNL, Regular Rate and Rhythm Respiratory: Yes: WNL, Regular, CTA Bilaterally Gastrointestinal: Yes: WNL, Normal Bowel Sounds Genitourinary: Yes: WNL Musculoskeletal: Yes: WNL Extremities: Yes: WNL Edema: No Integumentary: Yes: WNL Neurological: Yes: WNL, Alert, Oriented ...Motor Strength: WNL Psychiatric: Yes: WNL Labs: CBC, BMP 09/08/19 10:00 09/08/19 10:00 INR, PTT INR 1.09 (0.83-1.09) 09/07/19 06:20 Assessment/Plan 09/02/2019 kidney and bladder ultrasound shows bilateral renal cysts, moderate PVR w/o hydronephrosis 09/03/2019 Echocardiogram: Mild cLVH normal LVEF 60-65%, abnl LV compliance, normal RV size and fxn, mild MR, TR RVSP 30-40 mmHg, mild AR 1. Hypertensive urgency improving 2. Demand ischemia 3. CKD with proteinuria 4. Left heel ulcer 5. Hyperlipidemia P: 1. Continue with amlodipine 10 mg qd, labetolol 400 bid, added hydralazine 25 bid 2. Troponins have peaked 3. Start JHONATHAN-I/ARB once renal fxn at baseline, for possible renal biopsy this week 4. Wound care, HBO2 for heel ulcer 5. MIBI stress tets showe moderately sized moderate intensity inferio-apical ischemia. Nl EF. In the setting of CRI Cr. 3,3 normal EF and no symptoms would recommend medical rx since c. cath may cause ARF and need for HD.
--- NOTE | 2019-09-08 12:48 | PN ---
Progress Note, Physician - Current Medication List Current Medications: Active Medications Amlodipine Besylate (Norvasc -) 10 mg PO DAILY [facility] Last Admin: 09/08/19 10:08 Dose: 10 mg Aspirin (Ecotrin -) 81 mg PO DAILY [facility] Collagenase (Santyl -) 1 applic TP DAILY [facility]; Protocol Last Admin: 09/08/19 10:08 Dose: 1 applic Doxycycline Hyclate (Vibramycin -) 100 mg PO BID@1000,1800 [facility] Last Admin: 09/07/19 18:00 Dose: 100 mg Hydralazine HCl (Apresoline -) 25 mg PO BID [facility] Last Admin: 09/08/19 10:08 Dose: 25 mg Labetalol HCl (Normodyne -) 400 mg PO BID [facility] Last Admin: 09/07/19 21:51 Dose: 400 mg Triamcinolone Acetonide (Aristocort 0.1% Ointment -) 1 applic TP BID [facility] Last Admin: 09/08/19 10:08 Dose: 1 applic - Objective Vital Signs: Vital Signs Temperature 98.3 F 09/08/19 06:00 Pulse Rate 84 09/08/19 06:00 Respiratory Rate 20 09/08/19 06:00 Blood Pressure 134/67 09/08/19 06:00 O2 Sat by Pulse Oximetry (%) 97 09/07/19 21:00 Labs: CBC, BMP 09/08/19 10:00 09/08/19 10:00 INR, PTT INR 1.09 (0.83-1.09) 09/07/19 06:20
[2019-09-08] MEDS ORDERED: ASPIRIN COATED 81 MG TABLET.EC PO SCH (13:00)
--- NOTE | 2019-09-08 13:42 | PN ---
Progress Note, Physician History of Present Illness: Pt seen and examined at bedside. He is awake and alert. He is getting his stress test. - Current Medication List Current Medications: Active Medications Amlodipine Besylate (Norvasc -) 10 mg PO DAILY [facility] Last Admin: 09/08/19 10:08 Dose: 10 mg Aspirin (Ecotrin -) 81 mg PO DAILY [facility] Atorvastatin Calcium (Lipitor -) 10 mg PO HS [facility] Collagenase (Santyl -) 1 applic TP DAILY [facility]; Protocol Last Admin: 09/08/19 10:08 Dose: 1 applic Doxycycline Hyclate (Vibramycin -) 100 mg PO BID@1000,1800 [facility] Last Admin: 09/07/19 18:00 Dose: 100 mg Hydralazine HCl (Apresoline -) 25 mg PO BID [facility] Last Admin: 09/08/19 10:08 Dose: 25 mg Labetalol HCl (Normodyne -) 400 mg PO BID [facility] Last Admin: 09/07/19 21:51 Dose: 400 mg Tamsulosin HCl (Flomax -) 0.4 mg PO DAILY@0830 [facility] Triamcinolone Acetonide (Aristocort 0.1% Ointment -) 1 applic TP BID [facility] Last Admin: 09/08/19 10:08 Dose: 1 applic - Objective Vital Signs: Vital Signs Temperature 98.3 F 09/08/19 06:00 Pulse Rate 82 09/08/19 10:00 Respiratory Rate 18 09/08/19 10:00 Blood Pressure 174/93 H 09/08/19 10:00 O2 Sat by Pulse Oximetry (%) 97 09/07/19 21:00 Constitutional: Yes: Calm Eyes: Yes: Conjunctiva Clear HENT: Yes: Atraumatic Neck: Yes: Supple Cardiovascular: Yes: S1, S2 Respiratory: Yes: CTA Bilaterally Gastrointestinal: Yes: Normal Bowel Sounds, Soft Genitourinary: Yes: WNL Musculoskeletal: Yes: WNL Edema: No Integumentary: Yes: Rash Neurological: Yes: Oriented Psychiatric: Yes: Oriented Labs: CBC, BMP 09/08/19 10:00 09/08/19 10:00 INR, PTT INR 1.09 (0.83-1.09) 09/07/19 06:20 Problem List - Problems (1) Ahrrt-js-yrntriz kidney injury Code(s): N17.9 - ACUTE KIDNEY FAILURE, UNSPECIFIED; N18.9 - CHRONIC KIDNEY DISEASE, UNSPECIFIED Qualifiers: Chronic kidney disease stage: stage 3 (moderate) (2) Proteinuria Code(s): R80.9 - PROTEINURIA, UNSPECIFIED Qualifiers: Proteinuria type: unspecified Qualified Code(s): R80.9 - Proteinuria, unspecified Assessment/Plan Current Medications Generic Name Dose Route Start Last Admin Trade Name Anette PRN Reason Stop Dose Admin Amlodipine Besylate 10 mg 09/02/19 10:00 09/08/19 10:08 Norvasc - PO 10 mg DAILY [facility] Administration Aspirin 81 mg 09/08/19 13:00 Ecotrin - PO DAILY [facility] Atorvastatin Calcium 10 mg 09/08/19 22:00 Lipitor - PO HS [facility] Collagenase 1 applic 09/02/19 14:45 09/08/19 10:08 Santyl - TP 1 applic DAILY [facility] Administration Protocol Doxycycline Hyclate 100 mg 09/04/19 18:00 09/07/19 18:00 Vibramycin - PO 100 mg BID@1000,1800 [facility] Administration Hydralazine HCl 25 mg 09/05/19 10:00 09/08/19 10:08 Apresoline - PO 25 mg BID [facility] Administration Labetalol HCl 400 mg 09/04/19 11:00 09/07/19 21:51 Normodyne - PO 400 mg BID [facility] Administration Tamsulosin HCl 0.4 mg 09/08/19 14:00 Flomax - PO DAILY@0830 [facility] Triamcinolone Acetonide 1 applic 09/07/19 12:45 09/08/19 10:08 Aristocort 0.1% Ointment - TP 1 applic BID [facility] Administration Laboratory Tests 09/03/19 09/03/19 05:50 05:50 RAGINI M-Kevyn 2.7 H SANG Screen Negative c-ANCA <1:20 Proteinase 3 (PR3) <3.5 p-ANCA <1:20 Atypical p-ANCA <1:20 Myeloperoxidase Ab <9.0 Double Strand DNA Ab 3 Glomerular Base Memb Ab 9 Impression 1. CKD 2. HTN 3. cellulitis 4. rash 5. protienuria 6. m-spike Plan - monitor renal function - onc eval - follow stress test result - will likely get kidney biopsy as outpt - pt has not been on nsaids or asa
[2019-09-08] MEDS ORDERED: TAMSULOSIN HCL 0.4 MG CAP PO SCH (14:00)
[2019-09-08 15:16] VITALS: BP 139/91; PULSE 90; TEMP 98.1
--- NOTE | 2019-09-08 16:41 | DS ---
Physical Exam: SUBJECTIVE: Patient seen and examined Patient is a 74 year old man with a history of HTN, hyperlipidemia, CKD who was sent from his PCP office to the ED for uncontrolled BP, abnormal EKG and found to have elevated troponins with worsening JAY. OBJECTIVE: Vital Signs Period Temp Pulse Resp BP Sys/Judd Pulse Ox Last 24 Hr 97.7 F-98.4 F 79-90 18-20 134-174/53-93 97 PHYSICAL EXAM GENERAL: The patient is awake, alert, and fully oriented, in no acute distress. syriac speaking mostly. HEAD: Normal with no signs of trauma. EYES: PERRL, extraocular movements intact, sclera anicteric, conjunctiva clear. No ptosis. ENT: Ears normal, nares patent, oropharynx clear without exudates, moist mucous membranes. NECK: Trachea midline, full range of motion, supple. LUNGS: Breath sounds equal, clear to auscultation bilaterally, no wheezes, no crackles, no accessory muscle use. HEART: Regular rate and rhythm, S1, S2 without murmur, rub or gallop. ABDOMEN: Soft, nontender, nondistended, normoactive bowel sounds, no guarding, no rebound, no hepatosplenomegaly, no masses. EXTREMITIES: 2+ pulses, warm, well-perfused, no edema. NEUROLOGICAL: pink raised rash to bilateral arms, legs, chest. LABS Laboratory Results - last 24 hr 09/03/19 09/08/19 09/08/19 05:50 10:00 10:00 WBC 11.1 H RBC 3.21 L Hgb 10.6 L Hct 32.1 L MCV 99.9 H MCH 33.1 MCHC 33.1 RDW 17.8 H Plt Count 236 MPV 7.3 L Absolute Neuts (auto) 6.4 Neutrophils % 58.2 Neutrophils % (Manual) 60.9 Band Neutrophils % 0.0 Lymphocytes % 17.4 Lymphocytes % (Manual) 17.1 D Monocytes % 14.6 H Monocytes % (Manual) 11 H Eosinophils % 9.0 H Eosinophils % (Manual) 8.6 H Basophils % 0.8 Basophils % (Manual) 1.0 Myelocytes % (Man) 0 D Promyelocytes % (Man) 0 Blast Cells % (Manual) 0 Nucleated RBC % 0 Metamyelocytes 1 D Hypochromia 0 Platelet Estimate Normal Polychromasia 0 Poikilocytosis 0 Anisocytosis 0 Microcytosis 0 Macrocytosis 0 Sodium 138 Potassium 3.9 Chloride 107 Carbon Dioxide 23 Anion Gap 8 BUN 46.1 H Creatinine 3.3 H Est GFR (CKD-EPI)AfAm 20.20 Est GFR (CKD-EPI)NonAf 17.43 Random Glucose 97 Calcium 10.1 Magnesium 2.2 Total Bilirubin 0.4 AST 23 ALT 30 Alkaline Phosphatase 48 Total Protein 9.8 H Total Protein (PEP) 8.5 Albumin 3.6 Albumin (PEP) 3.8 Globulin 4.7 H Albumin/Globulin Ratio 0.8 Beta Globulins 0.7 RAGINI M-Kevyn 2.7 H HOSPITAL COURSE: Date of Admission:09/02/19 Date of Discharge: 09/08/19 Problem List - Problems (1) Gbqam-xg-bjepvuk kidney injury Assessment/Plan: kidney biopsy can be done as outpt in future, pt will follow with Dr Owen Code(s): N17.9 - ACUTE KIDNEY FAILURE, UNSPECIFIED; N18.9 - CHRONIC KIDNEY DISEASE, UNSPECIFIED Qualifiers: Chronic kidney disease stage: stage 3 (moderate) (2) Demand ischemia Code(s): I24.8 - OTHER FORMS OF ACUTE ISCHEMIC HEART DISEASE (3) Elevated troponin Assessment/Plan: Continue with amlodipine 10 mg qd, labetolol 400 bid, added hydralazine 25 bid Troponins have peaked ST with reversibloe ischemia, will be medically managed since assymptomatic Code(s): R79.89 - OTHER SPECIFIED ABNORMAL FINDINGS OF BLOOD CHEMISTRY (4) Heel ulcer follow in wound clinic Code(s): L97.409 - NON-PRS CHRONIC ULCER OF UNSP HEEL AND MIDFOOT W UNSP SEVERT (5) Hypertensive heart disease Code(s): I11.9 - HYPERTENSIVE HEART DISEASE WITHOUT HEART FAILURE Qualifiers: Heart failure presence: without heart failure Qualified Code(s): I11.9 - Hypertensive heart disease without heart failure (6) Hypertensive urgency Code(s): I16.0 - HYPERTENSIVE URGENCY (7) Leukocytosis resolved Code(s): D72.829 - ELEVATED WHITE BLOOD CELL COUNT, UNSPECIFIED (8) Rash and nonspecific skin eruption Assessment/Plan: eczematous eruption on both ankles compatible with stasis dermatitis . Both arms from bicep area down are Xerotic with an exzematous eruption. Discussed skin care with patient who will apply triamcinolone QD and apply small amount of vaseline. Follow up as Outpatient. Thank You Medically stable for discharge to home with follow you care Minutes to complete discharge: 60 Discharge Summary Problems reviewed: Yes Reason For Visit: HYPERTENSIVE EMERGENCY Current Active Problems Tyizp-uf-midpgnv kidney injury (Acute) Demand ischemia (Acute) Elevated troponin (Acute) Heel ulcer (Acute) Hypertensive emergency (Acute) Hypertensive heart disease (Acute) Hypertensive urgency (Acute) Leukocytosis (Acute) Proteinuria (Acute) Rash and nonspecific skin eruption (Acute) Hospital Course: Problem List - Problems (1) Ukflx-gz-idsdjee kidney injury Assessment/Plan: kidney biopsy can be done as outpt in future, pt will follow with Dr Owen Code(s): N17.9 - ACUTE KIDNEY FAILURE, UNSPECIFIED; N18.9 - CHRONIC KIDNEY DISEASE, UNSPECIFIED Qualifiers: Chronic kidney disease stage: stage 3 (moderate) (2) Demand ischemia Code(s): I24.8 - OTHER FORMS OF ACUTE ISCHEMIC HEART DISEASE (3) Elevated troponin Assessment/Plan: Continue with amlodipine 10 mg qd, labetolol 400 bid, added hydralazine 25 bid Troponins have peaked ST with reversibloe ischemia, will be medically managed since assymptomatic Code(s): R79.89 - OTHER SPECIFIED ABNORMAL FINDINGS OF BLOOD CHEMISTRY (4) Heel ulcer follow in wound clinic Code(s): L97.409 - NON-PRS CHRONIC ULCER OF UNSP HEEL AND MIDFOOT W UNSP SEVERT (5) Hypertensive heart disease Code(s): I11.9 - HYPERTENSIVE HEART DISEASE WITHOUT HEART FAILURE Qualifiers: Heart failure presence: without heart failure Qualified Code(s): I11.9 - Hypertensive heart disease without heart failure (6) Hypertensive urgency Code(s): I16.0 - HYPERTENSIVE URGENCY (7) Leukocytosis resolved Code(s): D72.829 - ELEVATED WHITE BLOOD CELL COUNT, UNSPECIFIED (8) Rash and nonspecific skin eruption Assessment/Plan: eczematous eruption on both ankles compatible with stasis dermatitis . Both arms from bicep area down are Xerotic with an exzematous eruption. Discussed skin care with patient who will apply triamcinolone QD and apply small amount of vaseline. Follow up as Outpatient. Thank You Medically stable for discharge to home with follow you care - Instructions Diet, Activity, Other Instructions: Mr Jiang YOUR HOSPITAL VISIT You came to the hospital because you were sent by your primary doctor with very high blood pressure and an abnormal EKG and worsening kidney runction. A stress test of your heart was done that showed an area or low blood flow but since you have no chest pain with will medically manage you (give you mediations ). The kidney doctor saw you and recommeneded a kidney biopsy as an outpatient. Ypu were seen by drematology for the rash and a cream was prescribed. You were also seen by the wound doctor and an ointment was prescribed with the uclers on your foot MEDICATIONS Please continue to take your home medications as prescribed with the following changes. Labetolol was increased to 400mg twice a day Continue to norvasc, hydralazine and aspirin DIET Follow a low protein low sodium/potassium diet ADDITIONAL CARE Please make an appointment to see your primary care provider,1 week from today. Call the kidney doctor to be seen for a biopsy. Continue taking the aspirin until he tells you to stop in preparation for the biopsy ADDITIONAL INFORMATION Please call 911 or come directly to the emergency department if you experience unusual headache, vision change, shortness of breath, chest pain, numbness, tingling, loss of alertness/awareness, loss of function, unusual bleeding or any alarming symptoms. Referrals: Jose Enrique Owen MD [Staff Physician] - Alexandra Matson [Staff Physician] - (between 8-12p) Disposition: HOME - Home Medications Comprehensive Discharge Medication List: Ambulatory Orders Amlodipine Besylate [Norvasc -] 10 mg PO DAILY #30 tablet 09/08/19 Aspirin Coated [Ecotrin -] 81 mg PO DAILY #30 tablet.ec 09/08/19 Atorvastatin Ca [Lipitor] 10 mg PO HS #30 tablet 09/08/19 Collagenase Clostridium Hist. [Santyl -] 1 applic TP DAILY #1 tube 09/08/19 Labetalol HCl [Normodyne -] 400 mg PO BID #60 tablet 09/08/19 Tamsulosin HCl [Flomax -] 0.4 mg PO DAILY@0830 #30 cap.er.24h 09/08/19 Triamcinolone 0.1% Ointment [Aristocort 0.1% Ointment -] 1 applic TP BID #1 each 09/08/19 hydrALAZINE HCL [Apresoline -] 25 mg PO BID #60 tablet 09/08/19 Problem List - Problems (1) Wjphk-ov-rkoqelq kidney injury Code(s): N17.9 - ACUTE KIDNEY FAILURE, UNSPECIFIED; N18.9 - CHRONIC KIDNEY DISEASE, UNSPECIFIED Qualifiers: Chronic kidney disease stage: stage 3 (moderate) (2) Demand ischemia Code(s): I24.8 - OTHER FORMS OF ACUTE ISCHEMIC HEART DISEASE (3) Elevated troponin Code(s): R79.89 - OTHER SPECIFIED ABNORMAL FINDINGS OF BLOOD CHEMISTRY (4) Heel ulcer Code(s): L97.409 - NON-PRS CHRONIC ULCER OF UNSP HEEL AND MIDFOOT W UNSP SEVERT (5) Hypertensive heart disease Code(s): I11.9 - HYPERTENSIVE HEART DISEASE WITHOUT HEART FAILURE Qualifiers: Heart failure presence: without heart failure Qualified Code(s): I11.9 - Hypertensive heart disease without heart failure (6) Hypertensive urgency Code(s): I16.0 - HYPERTENSIVE URGENCY (7) Leukocytosis Code(s): D72.829 - ELEVATED WHITE BLOOD CELL COUNT, UNSPECIFIED (8) Rash and nonspecific skin eruption Code(s): R21 - RASH AND OTHER NONSPECIFIC SKIN ERUPTION This patient is new to me today: Yes Date on this admission: 09/08/19 Emergency Visit: Yes ED Registration Date: 09/02/19 Care time: The patient presented to the Emergency Department on the above date and was hospitalized for further evaluation of their emergent condition. Critical Care patient: No - Discharge Referral Referred to [facility] Med P.C.: No
[2019-09-08] MEDS ORDERED: ATORVASTATIN CA 10 MG TABLET (FP) PO SCH (22:00)
== END 2019-09-08 18:27 | disposition home or self-care (01) | DRG 199 ==
LOC: JER 11:08 → JERBED 16:15 → J4W 22:18 → OBSVTOIN 09-02 09:43
PROVIDERS: ATTEND Nurse Practitioner Acute Care
DX: I16.0 Hypertensive urgency (principal); N17.9 Acute kidney failure, unspecified; I24.8 Other forms of acute ischemic heart disease; L97.429 Non-pressure chronic ulcer of left heel and midfoot with unspecified severity; I12.9 Hypertensive chronic kidney disease with stage 1 through stage 4 chronic kidney disease, or unspecified chronic kidney disease; N18.9 Chronic kidney disease, unspecified; E78.5 Hyperlipidemia, unspecified; D72.829 Elevated white blood cell count, unspecified; R21 Rash and other nonspecific skin eruption; I87.2 Venous insufficiency (chronic) (peripheral); N18.3 Chronic kidney disease, stage 3 (moderate)
CPT/HCPCS: 36415; 71045-TC-FY; 76775-TC; 76856-TC; 78452-TC; 80048; 80053; 80061; 81003; 82550; 82553; 82570; 83036; 83516; 83520; 83721; 83735; 84100; 84155; 84156; 84165; 84443; 84484; 85025; 85027; 85610; 86038; 86225; 86256; 86704; 86706; 86707; 86708; 86709; 87070; 87205; 87340; 87522; 93005; 93010; 93017; 93306-TC; 97116-GP; 97161-GP; 99285-25; A9502; G0378; J2785

== ENCOUNTER 2019-11-08 15:29 | Emergency (ER) | payer OTHER ==
[2019-11-08 16:03] VITALS: TEMP 97.9; BMI 23.8
--- NOTE | 2019-11-08 18:26 | PDOC ---
History of Present Illness - General Chief Complaint: Blood Pressure Problem Stated Complaint: HYPERTENSION Time Seen by Provider: 11/08/19 17:27 - History of Present Illness Initial Comments: Ryan Hemphill is a 74yo man with a PMH of HTN, HLD, CKD who was sent to the ED by his PMD's office due to hypertension. He denies any chest pain , difficulty breathing, confusion, vision changes, urinary changes, focal weakness, headache, or other symptoms today. He says that he took his medications at home like always, and he had gone to his PMD's office for a scheduled appointment. Mr Hemphill reports that he did not see his regular doctor , only an assistant attorney general in the office, and the assistant attorney general told him that his blood pressure was "too high." He states it was 200 systolic. He was directed to come to the ED for additional evaluation. He does not remember his risk assessor's or PMD's names. Mr Hemphill' only complaint currently is a rash over his entire body that has been itching constantly. Per chart review, he was diagnosed with eczema. Past History - Past Medical History Allergies/Adverse Reactions: Allergies Allergy/AdvReac Type Severity Reaction Status Date / Time No Known Allergies Allergy Verified 11/08/19 16:03 Home Medications: Ambulatory Orders Amlodipine Besylate [Norvasc -] 10 mg PO DAILY #30 tablet 09/08/19 Atorvastatin Ca [Lipitor] 10 mg PO HS #30 tablet 09/08/19 Collagenase Clostridium Hist. [Santyl -] 1 applic TP DAILY #1 tube 09/08/19 Labetalol HCl [Normodyne -] 400 mg PO BID #60 tablet 09/08/19 Tamsulosin HCl [Flomax -] 0.4 mg PO DAILY@0830 #30 cap.er.24h 09/08/19 Triamcinolone 0.1% Ointment [Aristocort 0.1% Ointment -] 1 applic TP BID #1 each 09/08/19 hydrALAZINE HCL [Apresoline -] 25 mg PO BID #60 tablet 09/08/19 Fluocinonide 0.05% Cream [Lidex 0.05% Cream -] 1 applic TP DAILY #1 tube Cardiac Disorders: No COPD: No Disorders: Yes (kidney disease) HTN: Yes Hypercholesterolemia: Yes Kidney Stones: (renal failure 20% working) - Surgical History Appendectomy: Yes - Immunization History Immunization Up to Date: Yes - Psycho Social/Smoking Cessation Hx Smoking History: Never smoked Have you smoked in the past 12 months: No Information on smoking cessation initiated: No Hx Alcohol Use: No Drug/Substance Use Hx: No Substance Use Type: None Hx Substance Use Treatment: No Review of Systems - Review of Systems Comments:: General: No fevers, no chills, no weight or appetite change, no malaise HEENT: No changes in vision, no changes in hearing, no congestion, no sore throat CV: No chest pain, no palpitations, no LE edema Pulm: No SOB, no cough, no wheezing GI: No nausea or vomiting, no change in bowel habits, no melena : No frequency, no urgency, no dysuria Musc: No back pain, no joint swelling, no recent injury Skin: No rash, no lesions, no erythema Endo: No excessive thirst, no heat/cold intolerance Heme: No unusual bruising or bleeding, no swollen glands Skin: +Persistent itching rash Neuro: No syncope, no numbness/tingling, no focal weakness Vasc: No claudication Psych: No recent change in mood, no SI or HI *Physical Exam - Vital Signs Last Vital Signs Temp Pulse Resp BP Pulse Ox 97.9 F 72 18 182/85 H 96 11/08/19 15:59 11/08/19 15:59 11/08/19 15:59 11/08/19 15:59 11/08/19 15:59 - Physical Exam General: Comfortable, no acute distress HEENT: Atraumatic, PERRL, EOMI, MMM, voice normal, normal neck ROM Cards: RRR, no murmur appreciated Pulm: Comfortable on room air, clear to auscultation bilaterally Abd: Soft, nontender, nondistended Ext: Atraumatic. No LE edema. ROM intact. WWP Skin: Diffuse erythema, skin thickening, flaking over all extremities and torso , not present on face Neuro: A&Ox3, CN grossly intact, normal speech, motor/sensory grossly intact and symmetric Psych: Mood appropriate to situation ED Treatment Course - LABORATORY CBC & Chemistry Diagram: 11/08/19 18:15 11/08/19 18:15 - RADIOLOGY Radiology Studies Ordered: Category Date Time Status CHEST PA & LAT [RAD] Stat Radiology 11/08/19 17:35 Ordered Medical Decision Making - Medical Decision Making 11/08/19 18:25 Ryan Hemphill is a 74yo man with a PMH of HTN, HLD, CKD who was sent to the ED by his PMD's office due to asymptomatic hypertension to SBP 200. - Asymptomatic HTN, most likely hypertensive urgency but will eval for hypertensive emergency - CBC, CMP, trop, CXR, EKG, UA 11/08/19 18:44 - Pt's daughter now at bedside, reports that pt does not take his amlodipine because he believes it makes his feet swell - Giving additional dose of home labetalol and hydralazine as they were prescribed BID rather than TID 11/08/19 19:16 - Labs reviewed. No concerning abnormalities. Trop negative - CXR without acute pathology - EKG w/ NSR, HR 73, normal axis, long QTc at 478. No ST elevations - Pt to be given meds, BP rechecked. Signed out to Dr Rai for the remainder of his ED care Discussed with Dr Princess Rice PGY2 Discharge - Discharge Information Problems reviewed: Yes Clinical Impression/Diagnosis: Hypertensive urgency Condition: Stable - Follow up/Referral - Patient Discharge Instructions - Post Discharge Activity
[2019-11-08] MEDS ORDERED: hydrALAZINE HCL 25 MG TABLET (FP) PO ONE (18:41)
[2019-11-08] MEDS ORDERED: LABETALOL HCL 200 MG TABLET (FP) PO ONE (18:41)
--- NOTE | 2019-11-08 18:43 | PDOC ---
Attending Attestation - Resident Resident Name: Tamara Rice - ED Attending Attestation I have performed the following: I have examined & evaluated the patient, The case was reviewed & discussed with the resident, I agree w/resident's findings & plan, Exceptions are as noted - HPI HPI: 11/08/19 18:38 74yo male with hx of htn and eczema who went to his PMD today and had a bp >200 systolic and sent to the ER for further eval. Per the daughter, pt stressed over his eczema. Daughter states he does normally takes his meds as prescribed, but does not like his norvasc because it causes his legs to swell. Pt denies cp/ sob. No abd pain. No n/v/d. No dysuria. No calderon. No blurred vision. No other complaints. - Physicial Exam PE: 11/08/19 18:40 gen: aaox3, nad, bangladeshi speaking heart: +s1s2 reg lungs: cta b/l abd: soft, nt/nd +bs ext: no c/c/e skin: diffuse eczema rash to entire body chest, abd, back, legs - Medical Decision Making 11/08/19 18:41 a/p: 74yo male with hx of htn with elevated bp at the pmd today -pt without acute complaints -will send labs, ekg -will give labetalol and hydralazine in the ER -discussed plan with the patient and his daughter 11/08/19 19:32 trop neg pt with ckd and cr at baseline pt signed out pending meds and repeat vs Heart Score/ECG Review - ECG Intrepretation Comment:: 11/08/19 18:42 sinus at 73, nl axis, q waves septally which are age indeterminate, no acute st/ t wave findings
[2019-11-08 18:49] LABS: BASO % 0.7 % (0-2.0); EOS % 27.5 % (0-4.5); HEMATOCRIT 34.1 % (35.4-49); HEMOGLOBIN 11.2 GM/dL (11.7-16.9); LYMPH % 11.7 % (8-40); MCH 32.8 pg (25.7-33.7); MCHC 32.8 g/dl (32.0-35.9); MEAN CELL VOLUME 100.2 fl (80-96); MEAN PLT VOLUME 7.4 fl (7.5-11.1); MONO % 13.6 % (3.8-10.2); NEUT % 46.5 % (42.8-82.8); PLATELET COUNT 270 K/MM3 (134-434); RBC 3.41 M/mm3 (4.00-5.60); RDW 17.6 % (11.9-15.9); WHITE BLOOD COUNT 13.4 K/mm3 (4.0-10.0)
[2019-11-08 18:53] LABS: EPI CELLS 1.4 /HPF (0-5/HPF); HYALINE CASTS 9 /lpf (0-8); URINE APPEARANCE CLEAR; URINE BILIRUBIN NEGATIVE (NEGATIVE); URINE COLOR YELLOW; URINE GLUCOSE (UA) NEGATIVE (NEGATIVE); URINE KETONE NEGATIVE (NEGATIVE); URINE LEUK ESTERASE NEGATIVE (NEGATIVE); URINE NITRITE NEGATIVE (NEGATIVE); URINE PROTEIN 3+ (NEGATIVE); URINE RBC 3 /hpf (0-4); URINE UROBILINOGEN 0.2 mg/dL (0.2-1.0); URINE WBC 3 /hpf (0-5)
[2019-11-08 19:09] LABS: ALBUMIN 3.4 g/dl (3.4-5.0); ALK PHOS 65 U/L (45-117); ANION GAP 10 MMOL/L (8-16); BILIRUBIN,TOTAL 0.4 mg/dL (0.2-1); BLOOD UREA NITROGEN 36.8 mg/dL (7-18); CALCIUM 9.5 mg/dL (8.5-10.1); CHLORIDE 105 mmol/L (98-107); CO2 24 mmol/L (21-32); CREATININE 3.6 mg/dL (0.55-1.3); GLUCOSE,RANDOM 91 mg/dL (74-106); POTASSIUM 4.4 mmol/L (3.5-5.1); SGOT/AST 23 U/L (15-37); SGPT/ALT 27 U/L (13-61); SODIUM 139 mmol/L (136-145); TOT PROT 8.7 g/dl (6.4-8.2)
[2019-11-08 19:20] LABS: MACROCYTOSIS 1+; PLATELET ESTIMATE ADEQUATE
--- NOTE | 2019-11-08 19:26 | PDOC ---
*Physical Exam - Vital Signs Last Vital Signs Temp Pulse Resp BP Pulse Ox 97.9 F 72 16 180/87 H 100 11/08/19 15:59 11/08/19 18:40 11/08/19 18:40 11/08/19 18:40 11/08/19 18:40 ED Treatment Course - LABORATORY CBC & Chemistry Diagram: 11/08/19 18:15 11/08/19 18:15 - ADDITIONAL ORDERS Additional order review: Laboratory Results 11/08/19 11/08/19 18:15 18:15 Sodium 139 Potassium 4.4 Chloride 105 Carbon Dioxide 24 Anion Gap 10 BUN 36.8 H Creatinine 3.6 H Est GFR (CKD-EPI)AfAm 18.18 Est GFR (CKD-EPI)NonAf 15.69 Random Glucose 91 Calcium 9.5 Total Bilirubin 0.4 AST 23 ALT 27 Alkaline Phosphatase 65 Creatine Kinase 311 H Troponin I < 0.02 Total Protein 8.7 H Albumin 3.4 Urine Color Yellow Urine Appearance Clear Urine pH 5.0 Ur Specific [place] 1.021 Urine Protein 3+ H Urine Glucose (UA) Negative Urine Ketones Negative Urine Blood Negative Urine Nitrite Negative Urine Bilirubin Negative Urine Urobilinogen 0.2 Ur Leukocyte Esterase Negative Urine WBC (Auto) 3 Urine RBC (Auto) 3 Urine Casts (Auto) 9 U Epithel Cells (Auto) 1.4 Urine Bacteria (Auto) 1.0 11/08/19 18:15 RBC 3.41 L MCV 100.2 H MCHC 32.8 RDW 17.6 H MPV 7.4 L Neutrophils % 46.5 D Lymphocytes % 11.7 D Monocytes % 13.6 H Eosinophils % 27.5 H* D Basophils % 0.7 Medical Decision Making - Medical Decision Making 11/08/19 19:25 presents with asymptomatic HTN from PCP with systolic to 200. not taking amlodipine at home? review labs. give home meds. recheck pressure then plan to d /c. 11/08/19 21:25 180/90 Cr 3.6, baseline low 3s +3 protein in UA, same as previous visits will d/c and pt needs to f/u with PCP for medication changes Discharge - Discharge Information Problems reviewed: Yes Clinical Impression/Diagnosis: Hypertensive urgency Condition: Stable Disposition: HOME - Additional Discharge Information Prescriptions: Hydralazine HCl 25 mg PO TID 30 Days #90 tablet Labetalol HCl [Normodyne -] 200 mg PO TID 30 Days #90 tablet - Follow up/Referral Referrals: Russell Kendall MD [Primary Care Provider] - - Patient Discharge Instructions Patient Printed Discharge Instructions: DI for High Blood Pressure Additional Instructions: You were evaluated in the emergency room for high blood pressure. Your pressure is improved. You may go home. Please follow up with your primary care doctor so your medications may be adjusted. Return to the emergency room if your pressure is above 200/110, you have a headache, chest pain, or difficulty breathing. - Post Discharge Activity
[2019-11-08] MEDS ORDERED: LABETALOL HCL 100 MG TABLET (FP) ONE (19:28)
[2019-11-08] MEDS ORDERED: hydrALAZINE HCL 25 MG TABLET (FP) ONE (19:28)
[2019-11-09 00:45] VITALS: BP 154/76; PULSE 71
--- NOTE | 2019-11-09 09:27 | EKG ---
Test Reason : Blood Pressure : / mmHG Vent. Rate : 073 BPM Atrial Rate : 073 BPM P-R Int : 130 ms QRS Dur : 086 ms QT Int : 434 ms P-R-T Axes : 074 028 104 degrees QTc Int : 478 ms NORMAL SINUS RHYTHM POSSIBLE LEFT ATRIAL ENLARGEMENT NONSPECIFIC ST AND T WAVE ABNORMALITY PROLONGED QT ABNORMAL ECG WHEN COMPARED WITH ECG OF 02-SEP-2019 09:35, CRITERIA FOR INFERIOR INFARCT ARE NO LONGER PRESENT T WAVE INVERSION NO LONGER EVIDENT IN LATERAL LEADS Confirmed by Donald Van MD ([id number]) on 11/09/2019 9:26:30 AM Referred By: Confirmed By:Donald Van MD
== END 2019-11-08 23:50 | disposition home or self-care (01) ==
LOC: JER 15:29 → SUPCPDRO 15:29 → JER 23:50
DX: I16.0 Hypertensive urgency (principal); I12.9 Hypertensive chronic kidney disease with stage 1 through stage 4 chronic kidney disease, or unspecified chronic kidney disease; N18.9 Chronic kidney disease, unspecified; E78.5 Hyperlipidemia, unspecified; Z91.14 Patient's other noncompliance with medication regimen
CPT/HCPCS: 36415; 71046-TC-FY; 80053; 81003; 82550; 82553; 84484; 85025; 93005; 93010; 99283-25

== ENCOUNTER 2020-03-27 12:47 | Inpatient (IN) | payer OTHER ==
--- NOTE | 2020-03-27 14:10 | PDOC ---
History of Present Illness - General Chief Complaint: Urinary Problem Stated Complaint: SEND BY PCP Time Seen by Provider: 03/27/20 12:55 History Source: Patient - History of Present Illness Initial Comments: 03/27/20 14:48 74M Turkmen speaking only w/hx CKD presents sent by PCP for evaluation of JAY on CKD, noted on bloodwork. His daughter reports that over the course of the last week he has become increasingly confused, and had increased urinary frequency. He denies any dysuria, hematuria, abdominal pain. He reports mild L flank pain. He follows with Dr. Blount who is at the bedside. Per nephrology he was noted to be hypercalcemic to 15, with clinical suspicion for multiple myeloma. Patient denies any other symptoms, denies fevers, chills, nausea, vomiting, chest pain, sob. PCP: Dr. Kendall Past History - Medical History Allergies/Adverse Reactions: Allergies Allergy/AdvReac Type Severity Reaction Status Date / Time No Known Allergies Allergy Verified 03/27/20 12:50 Home Medications: Ambulatory Orders Amlodipine Besylate [Norvasc -] 10 mg PO DAILY #30 tablet 09/08/19 Atorvastatin Ca [Lipitor] 10 mg PO HS #30 tablet 09/08/19 Labetalol HCl [Normodyne -] 400 mg PO BID #60 tablet 09/08/19 Tamsulosin HCl [Flomax -] 0.4 mg PO DAILY@0830 #30 cap.er.24h 09/08/19 Triamcinolone 0.1% Ointment [Aristocort 0.1% Ointment -] 1 applic TP BID #1 each 09/08/19 Fluocinonide 0.05% Cream [Lidex 0.05% Cream -] 1 applic TP DAILY #1 tube 11/01/19 Hydralazine HCl 25 mg PO TID 30 Days #90 tablet 11/08/19 Labetalol HCl [Normodyne -] 200 mg PO TID 30 Days #90 tablet 11/08/19 Cardiac Disorders: No COPD: No Disorders: Yes (kidney disease) HTN: Yes Hypercholesterolemia: Yes Kidney Stones: (renal failure 20% working) - Surgical History Appendectomy: Yes - Immunization History Immunization Up to Date: Yes - Psycho-Social/Smoking History Smoking History: Never smoked Have you smoked in the past 12 months: No - Substance Abuse Hx (Audit-C & DAST Scrn) How often the patient has a drink containing alcohol: Never Score: In Men: 4 or > Positive; In Women: 3 or > Positive: 0 Screen Result (Pos requires Nsg. Audit-10AR): Negative In the last yr the pt used illegal drug/Rx for NonMed reason: No Score: Yes response is considered Positive: 0 Screen Result (Positive result requires Nsg. DAST-10): Negative Review of Systems - Review of Systems Able to Perform ROS?: Yes Comments:: 03/27/20 14:50 GENERAL/CONSTITUTIONAL: No fever or chills. No weakness. HEAD, EYES, EARS, NOSE AND THROAT: No change in vision. No ear pain or discharge . No sore throat. CARDIOVASCULAR: No chest pain or shortness of breath RESPIRATORY: No cough, wheezing, or hemoptysis. GASTROINTESTINAL: No nausea, vomiting, diarrhea or constipation. GENITOURINARY: Increased urinary frequency. No dysuria, or other change in urination. MUSCULOSKELETAL: No joint or muscle swelling or pain. No neck or back pain. SKIN: No rash NEUROLOGIC: No headache, vertigo, loss of consciousness, or change in strength/sensation. ENDOCRINE: No increased thirst. No abnormal weight change HEMATOLOGIC/LYMPHATIC: No anemia, easy bleeding, or history of blood clots. ALLERGIC/IMMUNOLOGIC: No hives or skin allergy. *Physical Exam - Vital Signs Last Vital Signs Temp Pulse Resp BP Pulse Ox 98.7 F 67 14 125/60 100 03/27/20 12:50 03/27/20 12:50 03/27/20 12:50 03/27/20 12:50 03/27/20 12:50 - Physical Exam 03/27/20 14:51 GENERAL: Awake, alert, and fully oriented, in no acute distress HEAD: No signs of trauma, normocephalic, atraumatic EYES: PERRLA, EOMI, sclera anicteric, conjunctiva clear ENT: Auricles normal inspection, hearing grossly normal, nares patent, oropharynx clear without exudates. Moist mucosa NECK: Normal ROM, supple, no lymphadenopathy, JVD, or masses LUNGS: No distress, speaks full sentences, clear to auscultation bilaterally HEART: Regular rate and rhythm, normal S1 and S2, no murmurs, rubs or gallops, peripheral pulses normal and equal bilaterally. ABDOMEN: Soft, nontender, normoactive bowel sounds. No guarding, no rebound. No masses EXTREMITIES : Normal inspection, Normal range of motion, no edema. No clubbing or cyanosis NEUROLOGICAL: Cranial nerves II through XII grossly intact. Normal speech, normal gait, no focal sensorimotor deficits SKIN: Warm, Dry, normal turgor, no rashes or lesions noted ED Treatment Course - LABORATORY CBC & Chemistry Diagram: 03/27/20 14:04 03/27/20 14:04 Medical Decision Making - Medical Decision Making 03/27/20 14:51 74M w/hx CKD presents sent by nephrology for evaluation of JAY, confusion, frequency, and hypercalcemia concerning for multiple myeloma. Other ddx includes UTI, urolithiasis, pre-renal JAY. Plan: CBC CMP EKG CXR Cardiac profile UA Urine culture POCUS Renal Urine Na, K, Osm, Cr, Ca Dispo: Admit --- POCUS Renal notable for kidney enlargement c/w multiple myeloma. Ca - 11.8 Cr - 7.0 (3.0 prior in november) --- Patient endorsed to admitting team. Discharge - Discharge Information Problems reviewed: Yes Clinical Impression/Diagnosis: JAY (acute kidney injury) Condition: Stable - Admission Yes - Follow up/Referral - Patient Discharge Instructions - Post Discharge Activity
[2020-03-27 14:36] LABS: HEMATOCRIT 24.8 % (35.4-49); HEMOGLOBIN 8.1 GM/dL (11.7-16.9); LYMPH % 12.5 % (8-40); MCH 32.4 pg (25.7-33.7); MCHC 32.7 g/dl (32.0-35.9); MEAN PLT VOLUME 7.3 fl (7.5-11.1); NEUT % 56.5 % (42.8-82.8); PLATELET COUNT 250 K/MM3 (134-434); RDW 20.8 % (11.9-15.9)
--- NOTE | 2020-03-27 14:53 | PDOC ---
Documentation entered by Graham Rodríguez SCRIBE, acting as scribe for Eris Torres MD. Eris Torres MD: This documentation has been prepared by the Anne art Nirvannie, SCRIBE, under my direction and personally reviewed by me in its entirety. I confirm that the documentation accurately reflects all work, treatment, procedures, and medical decision making performed by me. Attending Attestation - Resident Resident Name: Kevin Suero - ED Attending Attestation I have performed the following: I have examined & evaluated the patient, The case was reviewed & discussed with the resident, I agree w/resident's findings & plan, Exceptions are as noted - HPI HPI: 03/27/20 14:20 The patient is a 74 year old male, with a significant past medical history of HTN, CKD, and HLD, who presents to the emergency department with abnormal outpatient labs. As per Dr. Blount patient was found to have JAY on outpatient labs (Cr elevated to 5.9 from 3.3) with associated hypercalcemia and anemia. - Physicial Exam PE: 03/27/20 14:54 See resident exam - Medical Decision Making 03/27/20 14:54 74 M with abnormal outpt labs. - Labs - Renal c/s - Dr. Blount aware - Admit Discharge - Discharge Information Problems reviewed: Yes Clinical Impression/Diagnosis: JAY (acute kidney injury) Condition: Stable - Follow up/Referral - Patient Discharge Instructions - Post Discharge Activity
[2020-03-27 14:54] LABS: INR 1.08 (0.83-1.09); PROTHROMBIN TIME (PATIENT) 12.7 SEC (9.7-13.0)
[2020-03-27 14:57] LABS: ACTIVATED PTT 29.8 SECONDS (25.2-36.5)
[2020-03-27 15:03] LABS: ALBUMIN 3.4 g/dl (3.4-5.0); BILIRUBIN,TOTAL 0.3 mg/dL (0.2-1); BLOOD UREA NITROGEN 66.9 mg/dL (7-18); CALCIUM 11.8 mg/dL (8.5-10.1); MAGNESIUM 2.8 mg/dL (1.8-2.4); POTASSIUM 4.1 mmol/L (3.5-5.1); TOT PROT 9.6 g/dl (6.4-8.2)
[2020-03-27 15:33] LABS: ANISOCYTOSIS 1+; MACROCYTOSIS 1+; PLATELET ESTIMATE NORMAL; TEAR DROP CELLS 1+
--- NOTE | 2020-03-27 16:41 | PN ---
Teaching Attending Note Name of Resident: Jose Enrique Gates ATTENDING PHYSICIAN STATEMENT I saw and evaluated the patient. I reviewed the resident's note and discussed the case with the resident Dr Jose Enrique Gates. I agree with the resident's findings and plan as documented. SUBJECTIVE: 74 year old Turkmen speaking only male with known history of CKD who was sent to the ED for evaluation of abnormal blood work with calcium of 15 noted at outpatient physician's office. Daughter reports increased confusion since last week and frequent urination. Calcium level drawn at the ED was at 11.8 and patient found to be in renal failure with creat of 7.0 OBJECTIVE: male who appears thin, slightly older than stated age. HEENT: EOMI, no oral lesions neck; supple, no JVD elevation chest; clear to auscultation CVS: RRR, no murmurs abd; soft, nontender, hypoactive bowel sounds ext no edema feet are warm and dry content coordinator; no motor deficit ASSESSMENT AND PLAN: 1. Hypercalcemia with acute renal failure - will start fluid hydration as appears dehydrated - US bladder and kidneys to rule out a post obstructive pathology - calcitonin to decrease calcium - recheck calcium in the am - heme consultation obtained - Dr Blount of nephrology already saw patient 2. Anemia may be part of the syndrome discussed in #1 - will do hemoccult and send irone studies 3. Heparin SQ for DVT prophylaxis
--- NOTE | 2020-03-27 16:51 | HP ---
<Jose Enrique Gates - Last Filed: 03/31/20 12:07> CHIEF COMPLAINT: Sent in from Veneer Stapler's office for abnormal lab values PCP: HISTORY OF PRESENT ILLNESS: Patient is a 74 y/o M with a significant past medical history of CKD, HTN, and HLD who presented to [facility] at the behest of his Veneer Stapler. Per conversation with Nephrology, patient's outpatient laboratory values revealed a serum creatinine elevated to 5.9 from 3.3. Patient's calcium was also elevated at 15. Per conversation with daughter, patient has not had any significant weight loss. Patient is able to dress himself but the daughter prepares his meals. Patient makes urine. Denies chest pain, SOB, fevers, or N/V. ER course was notable for: (1) Calcium 11.8 (2) Creatinine of 7.0 (3) PAST MEDICAL HISTORY: as above PAST SURGICAL HISTORY: Appendectomy Social History: Smoking: Remote Smoking history Alcohol: Former Drugs: Negative Allergies No Known Allergies Allergy (Verified 03/27/20 12:50) HOME MEDICATIONS: Home Medications Medication Instructions Recorded Amlodipine Besylate [Norvasc -] 10 mg PO DAILY #30 tablet 09/08/19 Atorvastatin Ca [Lipitor] 10 mg PO HS #30 tablet 09/08/19 Labetalol HCl [Normodyne -] 400 mg PO BID #60 tablet 09/08/19 Tamsulosin HCl [Flomax -] 0.4 mg PO DAILY@0830 #30 cap.er.24h 09/08/19 Triamcinolone 0.1% Ointment 1 applic TP BID #1 each 09/08/19 [Aristocort 0.1% Ointment -] Fluocinonide 0.05% Cream [Lidex 1 applic TP DAILY #1 tube 11/01/19 0.05% Cream -] Hydralazine HCl 25 mg PO TID 30 Days #90 tablet 11/08/19 Labetalol HCl [Normodyne -] 200 mg PO TID 30 Days #90 tablet 11/08/19 REVIEW OF SYSTEMS CONSTITUTIONAL: Absent: fever, chills, diaphoresis, generalized weakness, malaise, loss of appetite, weight change HEENT: Absent: rhinorrhea, nasal congestion, throat pain, throat swelling, difficulty swallowing, mouth swelling, ear pain, eye pain, visual changes CARDIOVASCULAR: Absent: chest pain, syncope, palpitations, irregular heart rate, lightheadedness, peripheral edema RESPIRATORY: Absent: cough, shortness of breath, dyspnea with exertion, orthopnea, wheezing, stridor, hemoptysis GASTROINTESTINAL: Absent: abdominal pain, abdominal distension, nausea, vomiting, diarrhea, constipation, melena, hematochezia GENITOURINARY: Present: dysuria, flank pain MUSCULOSKELETAL: Absent: myalgia, arthralgia, joint swelling, back pain, neck pain SKIN: Absent: rash, itching, pallor HEMATOLOGIC/IMMUNOLOGIC: Absent: easy bleeding, easy bruising, lymphadenopathy, frequent infections ENDOCRINE: Absent: unexplained weight gain, unexplained weight loss, heat intolerance, cold intolerance NEUROLOGIC: Absent: headache, focal weakness or paresthesias, dizziness, unsteady gait, seizure, mental status changes, bladder or bowel incontinence PSYCHIATRIC: Absent: anxiety, depression, suicidal or homicidal ideation, hallucinations. PHYSICAL EXAMINATION Vital Signs - 24 hr 03/27/20 12:50 Temperature 98.7 F Pulse Rate 67 Respiratory 14 Rate Blood Pressure 125/60 O2 Sat by Pulse 100 Oximetry (%) GENERAL: NAD HEAD: Normal with no signs of trauma. EYES: EOMI Sclera Clear EARS, NOSE, THROAT: MMM NECK: Supple LUNGS: Clear Bilaterally HEART: RRR S1S2 ABDOMEN: Soft, nontender, nonender LOWER EXTREMITIES: No edema appreciated NEUROLOGICAL: No focal deficits appreciated. SKIN: No rashes or lesions appreciated Laboratory Results - last 24 hr 03/27/20 03/27/20 03/27/20 14:04 14:04 14:04 WBC 13.0 H RBC 2.50 L Hgb 8.1 L Hct 24.8 L D MCV 99.0 H MCH 32.4 MCHC 32.7 RDW 20.8 H Plt Count 250 MPV 7.3 L Absolute Neuts (auto) 7.4 Neutrophils % 56.5 Neutrophils % (Manual) 54.6 D Band Neutrophils % 7.1 Lymphocytes % 12.5 Lymphocytes % (Manual) 11.1 D Monocytes % 19.0 H Monocytes % (Manual) 9 D Eosinophils % 11.0 H Eosinophils % (Manual) 14.1 H Basophils % 1.0 Basophils % (Manual) 0.0 Myelocytes % (Man) 0 Promyelocytes % (Man) 0 Blast Cells % (Manual) 0 Nucleated RBC % 3 H Metamyelocytes 3 H D Hypochromia 0 Platelet Estimate Normal Polychromasia 1+ Poikilocytosis 1+ Basophilic Stippling 2+ Anisocytosis 1+ Microcytosis 1+ Macrocytosis 1+ Spherocytes 1+ Tear Drop Cells 1+ Acanthocytes (Spur) 1+ PT with INR 12.70 INR 1.08 PTT (Actin FS) 29.8 Sodium 137 Potassium 4.1 Chloride 104 Carbon Dioxide 25 Anion Gap 9 BUN 66.9 H Creatinine 7.0 H Est GFR (CKD-EPI)AfAm 8.14 Est GFR (CKD-EPI)NonAf 7.02 Random Glucose 99 Calcium 11.8 H Phosphorus 6.0 H Magnesium 2.8 H Total Bilirubin 0.3 AST 33 ALT 47 Alkaline Phosphatase 60 Total Protein 9.6 H Albumin 3.4 ASSESSMENT/PLAN: Patient is a 74 y/o M with a significant past medical history of CKD, HTN, and HLD who presented to [facility] at the behest of his Veneer Stapler. Outpatient labs revealed abnormally elevated creatinine and calcium. #JAY on CKD Baseline Creatinine ~3.0. Creatinine on admission 7.0. Will hydrate with NS@100 Renal on board BMP in am Renal/Pelvic sono to r/o obstructive etiology Hold Lasix #Elevated Calcium r/o Multiple Myeloma -Onc Consult -Calcitonin. -Possible Bone Biopsy -Bone scan from 11/2019 reveals no lytic lesions, or fractures #Anemia likely 2/2 chronic kidney Disease H/H on admission 8.24.8. -Iron Studies -CBC in am #HTN Resume home meds. Meds Reconciled #HLD Resume statin #FEN NS@100cc/hr Monitor Electrolytes Renal Diet #DVT ppx SCDs. #Dispo Med-Surg Visit type - Emergency Visit Emergency Visit: Yes ED Registration Date: 03/27/20 Care time: The patient presented to the Emergency Department on the above date and was hospitalized for further evaluation of their emergent condition. - New Patient This patient is new to me today: Yes Date on this admission: 03/27/20 - Critical Care Critical Care patient: No ATTENDING PHYSICIAN STATEMENT I saw and evaluated the patient. I reviewed the resident's note and discussed the case with the resident. I agree with the resident's findings and plan as documented. SUBJECTIVE: OBJECTIVE: ASSESSMENT AND PLAN: <Quiana Ozuna - Last Filed: 03/31/20 13:07> CHIEF COMPLAINT: PCP: HISTORY OF PRESENT ILLNESS: ER course was notable for: (1) (2) (3) Recent Travel: PAST MEDICAL HISTORY: PAST SURGICAL HISTORY: Social History: Smoking: Alcohol: Drugs: Allergies No Known Allergies Allergy (Verified 03/27/20 12:50) HOME MEDICATIONS: Home Medications Medication Instructions Recorded Amlodipine Besylate [Norvasc -] 10 mg PO DAILY #30 tablet 09/08/19 Atorvastatin Ca [Lipitor] 10 mg PO HS #30 tablet 09/08/19 Labetalol HCl [Normodyne -] 400 mg PO BID #60 tablet 09/08/19 Tamsulosin HCl [Flomax -] 0.4 mg PO DAILY@0830 #30 cap.er.24h 09/08/19 Triamcinolone 0.1% Ointment 1 applic TP BID #1 each 09/08/19 [Aristocort 0.1% Ointment -] Fluocinonide 0.05% Cream [Lidex 1 applic TP DAILY #1 tube 11/01/19 0.05% Cream -] Hydralazine HCl 25 mg PO TID 30 Days #90 tablet 11/08/19 Labetalol HCl [Normodyne -] 200 mg PO TID 30 Days #90 tablet 11/08/19 REVIEW OF SYSTEMS CONSTITUTIONAL: Absent: fever, chills, diaphoresis, generalized weakness, malaise, loss of appetite, weight change HEENT: Absent: rhinorrhea, nasal congestion, throat pain, throat swelling, difficulty swallowing, mouth swelling, ear pain, eye pain, visual changes CARDIOVASCULAR: Absent: chest pain, syncope, palpitations, irregular heart rate, lightheadedness, peripheral edema RESPIRATORY: Absent: cough, shortness of breath, dyspnea with exertion, orthopnea, wheezing, stridor, hemoptysis GASTROINTESTINAL: Absent: abdominal pain, abdominal distension, nausea, vomiting, diarrhea, constipation, melena, hematochezia GENITOURINARY: Absent: dysuria, frequency, urgency, hesitancy, hematuria, flank pain, genital pain MUSCULOSKELETAL: Absent: myalgia, arthralgia, joint swelling, back pain, neck pain SKIN: Absent: rash, itching, pallor HEMATOLOGIC/IMMUNOLOGIC: Absent: easy bleeding, easy bruising, lymphadenopathy, frequent infections ENDOCRINE: Absent: unexplained weight gain, unexplained weight loss, heat intolerance, cold intolerance NEUROLOGIC: Absent: headache, focal weakness or paresthesias, dizziness, unsteady gait, seizure, mental status changes, bladder or bowel incontinence PSYCHIATRIC: Absent: anxiety, depression, suicidal or homicidal ideation, hallucinations. PHYSICAL EXAMINATION Vital Signs - 24 hr 03/30/20 03/30/20 03/30/20 14:00 17:13 20:07 Temperature 98.8 F 98.9 F 98.2 F Pulse Rate 68 71 68 Respiratory 18 20 20 Rate Blood Pressure 116/63 140/68 136/75 O2 Sat by Pulse Oximetry (%) 03/30/20 03/31/20 03/31/20 20:19 05:47 09:00 Temperature 98.3 F 98.5 F Pulse Rate 66 70 Respiratory 20 20 Rate Blood Pressure 133/66 160/84 O2 Sat by Pulse 95 95 Oximetry (%) GENERAL: Awake, alert, and fully oriented, in no acute distress. HEAD: Normal with no signs of trauma. EYES: Pupils equal, round and reactive to light, extraocular movements intact, sclera anicteric, conjunctiva clear. No lid lag. EARS, NOSE, THROAT: Ears normal, nares patent, oropharynx clear without exudates. Moist mucous membranes. NECK: Normal range of motion, supple without lymphadenopathy, JVD, or masses. LUNGS: Breath sounds equal, clear to auscultation bilaterally. No wheezes, and no crackles. No accessory muscle use. HEART: Regular rate and rhythm, normal S1 and S2 without murmur, rub or gallop. ABDOMEN: Soft, nontender, not distended, normoactive bowel sounds, no guarding, no rebound, no masses. No hepatomegaly or splenomegaly. MUSCULOSKELETAL: Normal range of motion at all joints. No bony deformities or tenderness. No CVA tenderness. UPPER EXTREMITIES: 2+ pulses, warm, well-perfused. No cyanosis. No clubbing. No peripheral edema. LOWER EXTREMITIES: 2+ pulses, warm, well-perfused. No calf tenderness. No peripheral edema. NEUROLOGICAL: Cranial nerves II-XII intact. Normal speech. Normal gait. PSYCHIATRIC: Cooperative. Good eye contact. Appropriate mood and affect. SKIN: Warm, dry, normal turgor, no rashes or lesions noted, normal capillary refill. Laboratory Results - last 24 hr 03/31/20 03/31/20 07:04 07:04 WBC 14.2 H RBC 2.28 L Hgb 7.4 L Hct 22.7 L MCV 99.4 H MCH 32.6 MCHC 32.8 RDW 21.2 H Plt Count 229 MPV 7.2 L Sodium 137 Potassium 3.7 Chloride 109 H Carbon Dioxide 16 L Anion Gap 11 BUN 55.4 H Creatinine 5.9 H Est GFR (CKD-EPI)AfAm 10.01 Est GFR (CKD-EPI)NonAf 8.63 Random Glucose 96 Calcium 10.4 H Phosphorus 4.4 Magnesium 2.0 Total Bilirubin 0.4 AST 36 ALT 43 Alkaline Phosphatase 59 Total Protein 9.0 H Albumin 3.2 L ASSESSMENT/PLAN: ATTENDING PHYSICIAN STATEMENT I saw and evaluated the patient. I reviewed the resident's note and discussed the case with the resident. I agree with the resident's findings and plan as documented. SUBJECTIVE: OBJECTIVE: ASSESSMENT AND PLAN:
--- NOTE | 2020-03-27 17:47 | CONSULT ---
Consult Consult Specialty:: Nephrology Reason for Consultation:: JAY - History of Present Illness Chief Complaint: sent in for JAY History of Present Illness: Pt is a 74 year old male with pmhx of htn, ckd, hld, who was sent in for worsening renal function. He follows with Dr Barnett. He was found to have a brands editor of about 5.9. He was being worked up for possible multiple myeloma. He denies shortness of breath. He denies lower ext edema. He is on lasix at home. He has been compliant with his meds. He was also found to be anemic and hypercalcemic. He denies fevers or chills. - History Source History Provided By: Patient, Medical Record - Past Medical History Cardio/Vascular: Yes: HTN Renal/: Yes: Renal Inusuff - Alcohol/Substance Use Hx Alcohol Use: No - Smoking History Smoking history: Never smoked Have you smoked in the past 12 months: No Home Medications - Allergies Allergies/Adverse Reactions: Allergies Allergy/AdvReac Type Severity Reaction Status Date / Time No Known Allergies Allergy Verified 03/27/20 12:50 - Home Medications Home Medications: Ambulatory Orders Amlodipine Besylate [Norvasc -] 10 mg PO DAILY #30 tablet 09/08/19 Atorvastatin Ca [Lipitor] 10 mg PO HS #30 tablet 09/08/19 Labetalol HCl [Normodyne -] 400 mg PO BID #60 tablet 09/08/19 Tamsulosin HCl [Flomax -] 0.4 mg PO DAILY@0830 #30 cap.er.24h 09/08/19 Triamcinolone 0.1% Ointment [Aristocort 0.1% Ointment -] 1 applic TP BID #1 each 09/08/19 Fluocinonide 0.05% Cream [Lidex 0.05% Cream -] 1 applic TP DAILY #1 tube 11/01/19 Hydralazine HCl 25 mg PO TID 30 Days #90 tablet 11/08/19 Labetalol HCl [Normodyne -] 200 mg PO TID 30 Days #90 tablet 11/08/19 Family Medical History Family History: Denies Review of Systems - Review of Systems Constitutional: reports: No Symptoms Eyes: reports: No Symptoms HENT: reports: No Symptoms Neck: reports: No Symptoms Cardiovascular: reports: No Symptoms Respiratory: reports: No Symptoms Gastrointestinal: reports: No Symptoms Genitourinary: reports: No Symptoms Musculoskeletal: reports: No Symptoms Integumentary: reports: No Symptoms Neurological: reports: No Symptoms Endocrine: reports: No Symptoms Hematology/Lymphatic: reports: No Symptoms Psychiatric: reports: No Symptoms Physical Exam Vital Signs: Vital Signs Temperature 98.7 F 03/27/20 12:50 Pulse Rate 67 03/27/20 12:50 Respiratory Rate 14 03/27/20 12:50 Blood Pressure 125/60 03/27/20 12:50 O2 Sat by Pulse Oximetry (%) 100 03/27/20 12:50 Constitutional: Yes: Calm Eyes: Yes: Conjunctiva Clear HENT: Yes: Atraumatic Neck: Yes: Supple Cardiovascular: Yes: S1, S2 Respiratory: Yes: CTA Bilaterally Gastrointestinal: Yes: Soft Renal/: Yes: WNL Musculoskeletal: Yes: WNL Edema: No Neurological: Yes: Oriented Psychiatric: Yes: Oriented Labs: CBC, BMP 03/27/20 14:04 03/27/20 14:04 Imaging - Results Chest X-ray: Report Reviewed Problem List - Problems (1) [id number]-[id number] kidney injury Code(s): N17.9 - ACUTE KIDNEY FAILURE, UNSPECIFIED; N18.9 - CHRONIC KIDNEY DISEASE, UNSPECIFIED Qualifiers: Chronic kidney disease stage: stage 3 (moderate) Assessment/Plan Current Medications Generic Name Dose Route Start Last Admin Trade Name Freq PRN Reason Stop Dose Admin Amlodipine Besylate 10 mg 03/28/20 10:00 Norvasc - PO DAILY BRODIE Atorvastatin Calcium 10 mg 03/27/20 22:00 Lipitor - PO HS BRODIE Calcitonin 400 unit 03/27/20 17:30 Miacalcin Injection - SQ DAILY BRODIE Heparin Sodium (Porcine) 5,000 unit 03/27/20 22:00 Heparin - SQ BID BRODIE Hydralazine HCl 25 mg 03/27/20 22:00 Apresoline - PO TID BRODIE Sodium Chloride 1,000 mls @ 100 mls/hr 03/27/20 15:15 Normal Saline - IV ASDIR BRODIE Labetalol HCl 400 mg 03/27/20 22:00 Normodyne - PO BID BRODIE Laboratory Tests 09/08/19 11/08/19 11/29/19 10:00 18:15 14:40 WBC Hgb Plt Count PT with INR INR Sodium Potassium BUN Creatinine 3.3 H 3.6 H 3.0 H Calcium Phosphorus Albumin 03/27/20 03/27/20 03/27/20 14:04 14:04 14:04 WBC 13.0 H Hgb 8.1 L Plt Count 250 PT with INR 12.70 INR 1.08 Sodium 137 Potassium 4.1 BUN 66.9 H Creatinine 7.0 H Calcium 11.8 H Phosphorus 6.0 H Albumin 3.4 Impression 1. CKD 2. HTN 3. JAY 4. HLD 5. protienuria 6. m-spike 7. hypercalcemia Plan - hold lasix for now - start saline - decrease calcitionin dose to 240, called pharmacy - pt making urine, monitor output - heme onc eval for bone marrow biopsy - case discussed with Dr Roberts - repeat labs in am - no indication for acute HD - yamila stable, cont meds - can give lasix if he develops overload
[2020-03-27] MEDS: SODIUM CHLORIDE 1,000 ML IV SCH (18:00)
[2020-03-27] MEDS: CALCITONIN - SALMON SYNTHETIC 400 UNIT/2 ML VIAL SQ SCH (20:06)
[2020-03-27] MEDS: hydrALAZINE HCL 25 MG TABLET (FP) PO SCH (21:17)
[2020-03-27] MEDS: ATORVASTATIN CA 10 MG TABLET (FP) PO SCH (21:17)
[2020-03-27] MEDS: LABETALOL HCL 200 MG TABLET (FP) PO SCH (21:17)
[2020-03-27] MEDS: HEPARIN NA (PORCINE) 5,000 UNITS/ML 1ML VIAL SQ SCH (21:18)
[2020-03-28] MEDS: hydrALAZINE HCL 25 MG TABLET (FP) PO SCH ×3 (06:09→21:19)
[2020-03-28] MEDS: SODIUM CHLORIDE 1,000 ML IV SCH (06:23)
[2020-03-28 08:08] LABS: INR 1.12 (0.83-1.09); PROTHROMBIN TIME (PATIENT) 13.2 SEC (9.7-13.0)
[2020-03-28 08:10] LABS: ACTIVATED PTT 32.9 SECONDS (25.2-36.5)
[2020-03-28 08:14] LABS: EOS % 10.9 % (0-4.5); HEMATOCRIT 23.1 % (35.4-49); HEMOGLOBIN 7.6 GM/dL (11.7-16.9); LYMPH % 13.4 % (8-40); MCH 32.9 pg (25.7-33.7); MCHC 32.8 g/dl (32.0-35.9); MEAN CELL VOLUME 100.2 fl (80-96); MEAN PLT VOLUME 7.1 fl (7.5-11.1); MONO % 17.6 % (3.8-10.2); NEUT % 57.1 % (42.8-82.8); PLATELET COUNT 243 K/MM3 (134-434); RBC 2.31 M/mm3 (4.00-5.60); RDW 21.2 % (11.9-15.9); WHITE BLOOD COUNT 13.2 K/mm3 (4.0-10.0)
[2020-03-28 08:33] LABS: BILIRUBIN,TOTAL 0.3 mg/dL (0.2-1); BLOOD UREA NITROGEN 60.2 mg/dL (7-18); CREATININE 6.6 mg/dL (0.55-1.3); PHOSPHOROUS 4.3 mg/dL (2.5-4.9); POTASSIUM 3.9 mmol/L (3.5-5.1); TOT PROT 8.8 g/dl (6.4-8.2)
[2020-03-28] MEDS ORDERED: PT OWN MED DRAWER 7, Y5N ONE (09:19)
[2020-03-28] MEDS: HEPARIN NA (PORCINE) 5,000 UNITS/ML 1ML VIAL SQ SCH ×2 (09:29→21:19)
[2020-03-28] MEDS: amLODIPine BESYLATE 10 MG TABLET (FP) PO SCH (09:29)
[2020-03-28] MEDS: LABETALOL HCL 200 MG TABLET (FP) PO SCH ×2 (09:29→21:18)
[2020-03-28 10:31] LABS: ANISOCYTOSIS 2+; MACROCYTOSIS 1+; PLATELET ESTIMATE NORMAL
[2020-03-28] MEDS: CALCITONIN - SALMON SYNTHETIC 400 UNIT/2 ML VIAL SQ SCH (10:31)
--- NOTE | 2020-03-28 11:26 | EKG ---
Test Reason : Blood Pressure : / mmHG Vent. Rate : 066 BPM Atrial Rate : 066 BPM P-R Int : 154 ms QRS Dur : 104 ms QT Int : 398 ms P-R-T Axes : 066 023 096 degrees QTc Int : 417 ms NORMAL SINUS RHYTHM NONSPECIFIC ST AND T WAVE ABNORMALITY ABNORMAL ECG WHEN COMPARED WITH ECG OF 08-NOV-2019 18:25, QT HAS SHORTENED Confirmed by MD Jessica, Allen ([id number]) on 03/28/2020 11:26:31 AM Referred By: Confirmed By:Allen Lopez MD
[2020-03-28 12:00] LABS: EPI CELLS 5 /uL (0-25.1); HYALINE CASTS 0 /uL (0-3.1); URINE APPEARANCE CLEAR; URINE BACTERIA 78 /uL (0-1359); URINE BILIRUBIN NEGATIVE (NEGATIVE); URINE COLOR YELLOW; URINE GLUCOSE (UA) TRACE (NEGATIVE); URINE KETONE NEGATIVE (NEGATIVE); URINE LEUK ESTERASE NEGATIVE (NEGATIVE); URINE NITRITE NEGATIVE (NEGATIVE); URINE PROTEIN 2+ (NEGATIVE); URINE RBC 45 /uL (0-23.9); URINE UROBILINOGEN 0.2 mg/dL (0.2-1.0); URINE WBC 13 /uL (0-25.8)
--- NOTE | 2020-03-28 12:49 | PN ---
Physical Exam: SUBJECTIVE: Patient seen and examined with Urdu speaking [facility]. He endorses that he is making urine, and admits occasional dysuria, however denies hematuria. Admits some back pain that is exacerbated with ambulation, going up stairs. Denies subjective fevers, chills, shortness of breath, chest pain, palpitations, abdominal pain, nausea, vomiting. OBJECTIVE: Vital Signs Period Temp Pulse Resp BP Sys/Judd Pulse Ox Last 24 Hr 97.4 F-98.7 F 67-84 14-20 121-150/60-80 98-100 GENERAL: The patient is awake, alert, and fully oriented, in no acute distress. HEAD: Normocephalic, atraumatic. EYES: PERRL, extraocular movements intact, sclera anicteric, conjunctiva clear. ENT: Oropharynx clear, without erythema or exudates. Moist mucous membranes. NECK: Trachea midline, full range of motion. Supple without lymphadenopathy. LUNGS: Breath sounds equal, clear to auscultation bilaterally. No wheezes, no crackles. No accessory muscle use. HEART: Regular rate and rhythm. S1, S2 without murmur, rub or gallop. ABDOMEN: Soft, nondistended, nontender to light and deep palpation x4 quadrants. No rebound tenderness, no guarding. Normoactive bowel sounds x4 quadrants. No hepatosplenomegaly, no masses appreciated. EXTREMITIES: 2+ radial, dorsalis pedis pulses bilaterally. Warm, well-perfused. No lower extremity edema bilaterally. NEUROLOGICAL: Cranial nerves II through XII grossly intact. Normal speech. No gross focal deficits. PSYCH: Normal mood, normal affect upon my encounter. SKIN: Warm, dry. Laboratory Results - last 24 hr 03/27/20 03/27/20 03/27/20 14:04 14:04 14:04 WBC 13.0 H RBC 2.50 L Hgb 8.1 L Hct 24.8 L D MCV 99.0 H MCH 32.4 MCHC 32.7 RDW 20.8 H Plt Count 250 MPV 7.3 L Absolute Neuts (auto) 7.4 Neutrophils % 56.5 Neutrophils % (Manual) 54.6 D Band Neutrophils % 7.1 Lymphocytes % 12.5 Lymphocytes % (Manual) 11.1 D Monocytes % 19.0 H Monocytes % (Manual) 9 D Eosinophils % 11.0 H Eosinophils % (Manual) 14.1 H Basophils % 1.0 Basophils % (Manual) 0.0 Myelocytes % (Man) 0 Promyelocytes % (Man) 0 Blast Cells % (Manual) 0 Nucleated RBC % 3 H Metamyelocytes 3 H D Hypochromia 0 Platelet Estimate Normal Polychromasia 1+ Poikilocytosis 1+ Basophilic Stippling 2+ Anisocytosis 1+ Microcytosis 1+ Macrocytosis 1+ Spherocytes 1+ Tear Drop Cells 1+ Acanthocytes (Spur) 1+ PT with INR 12.70 INR 1.08 PTT (Actin FS) 29.8 Sodium 137 Potassium 4.1 Chloride 104 Carbon Dioxide 25 Anion Gap 9 BUN 66.9 H Creatinine 7.0 H Est GFR (CKD-EPI)AfAm 8.14 Est GFR (CKD-EPI)NonAf 7.02 Random Glucose 99 Calcium 11.8 H Phosphorus 6.0 H Magnesium 2.8 H Iron 334 H TIBC 251 Iron Saturation 133 H Unsaturated IBC -83 L Ferritin Total Bilirubin 0.3 AST 33 ALT 47 Alkaline Phosphatase 60 Total Protein 9.6 H Albumin 3.4 Vitamin B12 Serum Folate Urine Color Urine Appearance Urine pH Ur Specific Sells Urine Protein Urine Glucose (UA) Urine Ketones Urine Blood Urine Nitrite Urine Bilirubin Urine Urobilinogen Ur Leukocyte Esterase Urine WBC (Auto) Urine RBC (Auto) Urine Casts (Auto) U Epithel Cells (Auto) Urine Bacteria (Auto) Urine Osmolality Ur Random Creatinine Ur Random Sodium 03/27/20 03/28/20 03/28/20 19:53 07:00 07:00 WBC 13.2 H RBC 2.31 L Hgb 7.6 L Hct 23.1 L MCV 100.2 H MCH 32.9 MCHC 32.8 RDW 21.2 H Plt Count 243 MPV 7.1 L Absolute Neuts (auto) 7.5 Neutrophils % 57.1 Neutrophils % (Manual) 64.1 Band Neutrophils % 1.9 Lymphocytes % 13.4 Lymphocytes % (Manual) 9.7 Monocytes % 17.6 H Monocytes % (Manual) 16 H Eosinophils % 10.9 H Eosinophils % (Manual) 6.8 H Basophils % 1.0 Basophils % (Manual) 1.0 D Myelocytes % (Man) 0 Promyelocytes % (Man) 0 Blast Cells % (Manual) 0 Nucleated RBC % 3 H Metamyelocytes 1 D Hypochromia 1+ Platelet Estimate Normal Polychromasia 1+ Poikilocytosis 0 Basophilic Stippling Anisocytosis 2+ Microcytosis 2+ Macrocytosis 1+ Spherocytes Tear Drop Cells Acanthocytes (Spur) PT with INR 13.20 H INR 1.12 H PTT (Actin FS) 32.9 Sodium Potassium Chloride Carbon Dioxide Anion Gap BUN Creatinine Est GFR (CKD-EPI)AfAm Est GFR (CKD-EPI)NonAf Random Glucose Calcium Phosphorus Magnesium Iron TIBC Iron Saturation Unsaturated IBC Ferritin Total Bilirubin AST ALT Alkaline Phosphatase Total Protein Albumin Vitamin B12 Serum Folate Urine Color Urine Appearance Urine pH Ur Specific Sells Urine Protein Urine Glucose (UA) Urine Ketones Urine Blood Urine Nitrite Urine Bilirubin Urine Urobilinogen Ur Leukocyte Esterase Urine WBC (Auto) Urine RBC (Auto) Urine Casts (Auto) U Epithel Cells (Auto) Urine Bacteria (Auto) Urine Osmolality 398 Ur Random Creatinine 148.0 Ur Random Sodium 24 L 03/28/20 03/28/20 03/28/20 07:00 07:00 11:25 WBC RBC Hgb Hct MCV MCH MCHC RDW Plt Count MPV Absolute Neuts (auto) Neutrophils % Neutrophils % (Manual) Band Neutrophils % Lymphocytes % Lymphocytes % (Manual) Monocytes % Monocytes % (Manual) Eosinophils % Eosinophils % (Manual) Basophils % Basophils % (Manual) Myelocytes % (Man) Promyelocytes % (Man) Blast Cells % (Manual) Nucleated RBC % Metamyelocytes Hypochromia Platelet Estimate Polychromasia Poikilocytosis Basophilic Stippling Anisocytosis Microcytosis Macrocytosis Spherocytes Tear Drop Cells Acanthocytes (Spur) PT with INR INR PTT (Actin FS) Sodium 137 Potassium 3.9 Chloride 108 H Carbon Dioxide 22 Anion Gap 8 BUN 60.2 H Creatinine 6.6 H Est GFR (CKD-EPI)AfAm 8.74 Est GFR (CKD-EPI)NonAf 7.54 Random Glucose 112 H Calcium 10.0 Phosphorus 4.3 Magnesium Iron TIBC Iron Saturation Unsaturated IBC Ferritin 249.5 Total Bilirubin 0.3 AST 29 ALT 43 Alkaline Phosphatase 61 Total Protein 8.8 H Albumin 3.0 L Vitamin B12 322 Serum Folate 9 Urine Color Yellow Urine Appearance Clear Urine pH 6.0 Ur Specific Sells 1.013 Urine Protein 2+ H Urine Glucose (UA) Trace Urine Ketones Negative Urine Blood 2+ H Urine Nitrite Negative Urine Bilirubin Negative Urine Urobilinogen 0.2 Ur Leukocyte Esterase Negative Urine WBC (Auto) 13 Urine RBC (Auto) 45 Urine Casts (Auto) 0 U Epithel Cells (Auto) 5 Urine Bacteria (Auto) 78 Urine Osmolality Ur Random Creatinine Ur Random Sodium Active Medications Generic Name Dose Route Start Last Admin Trade Name Anette PRN Reason Stop Dose Admin Amlodipine Besylate 10 mg 03/28/20 10:00 03/28/20 09:29 Norvasc - PO 10 mg DAILY BRODIE Administration Atorvastatin Calcium 10 mg 03/27/20 22:00 03/27/20 21:17 Lipitor - PO 10 mg HS BRODIE Administration Calcitonin 240 unit 03/27/20 18:00 03/28/20 10:31 Miacalcin Injection - SQ 240 unit DAILY BRODIE Administration Heparin Sodium (Porcine) 5,000 unit 03/27/20 22:00 03/28/20 09:29 Heparin - SQ 5,000 unit BID BRODIE Administration Hydralazine HCl 25 mg 03/27/20 22:00 03/28/20 06:09 Apresoline - PO 25 mg TID BRODIE Administration Sodium Chloride 1,000 mls @ 100 mls/hr 03/27/20 15:15 03/28/20 06:23 Normal Saline - IV 100 mls/hr ASDIR BRODIE Administration Labetalol HCl 400 mg 03/27/20 22:00 03/28/20 09:29 Normodyne - PO 400 mg BID BRODIE Administration ASSESSMENT/PLAN: Patient is a 74 year old male with history of chronic kidney disease (baseline Cr approx. 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 Owen) regarding corsening azotemia, hypercalcemia, hyperphosphatemia. Acute kidney injury on CKD -BUN/ 60, Cr 6.6 -improving -Renal, bladder US reveals bilateral echogenicity of the kidneys concerningi for chronic disease. 0.5cmright sided non-obstructing stone noted. -Holding home Lasix. -Continue hydration IV normal saline at 100mL/ hour -Nephrology recommendations (Dr. Blount) appreciated. Macrocytic anemia -In setting of hypercalcemia, hyperphosphatemia, kidney injury concerning for multiple myeloma. Patient had been referred to hematology/ oncology, however has not had bone marrow biopsy performed. -Bone scan from 11/2019 reveals no lytic lesions, or fractures -B12, Folic acid within normal limits -Hematology, oncology consult appreciated. Will require bone marrow biopsy. Lymphocytosis -Predominance of eosinophils, monocytes (noted similarly on prior CBC). However currently afebrile. Will monitor off antibiotics -Suspect this chronic finding is secondary to likely multiple myeloma -Follow urine culture as patient endorses occasional dysuria -Hematology recommendations appreciated History of hypertension -Continue home Labetalol, Hydralazine, Amlodipine FEN -IV normal saline at 100mL/ hour -Follow BMP, Phosphate -Regular diet Prophylaxis -Heparin 5000units subq TID Disposition -Continue care in medical surgical floor. Visit type - Emergency Visit Emergency Visit: Yes ED Registration Date: 03/27/20 Care time: The patient presented to the Emergency Department on the above date and was hospitalized for further evaluation of their emergent condition. - New Patient This patient is new to me today: Yes Date on this admission: 03/28/20 - Critical Care Critical Care patient: No - Discharge Referral Referred to [facility] Med [facility] No ATTENDING PHYSICIAN STATEMENT I saw and evaluated the patient. I reviewed the resident's note and discussed the case with the resident. I agree with the resident's findings and plan as documented. SUBJECTIVE: OBJECTIVE: ASSESSMENT AND PLAN:
--- NOTE | 2020-03-28 13:43 | PN ---
Progress Note, Physician History of Present Illness: Pt seen and examined at bedside. He is awake and appears comfortable. He denies shortness of breath. - Current Medication List Current Medications: Active Medications Amlodipine Besylate (Norvasc -) 10 mg PO DAILY [facility] Last Admin: 03/28/20 09:29 Dose: 10 mg Documented by: Atorvastatin Calcium (Lipitor -) 10 mg PO HS [facility] Last Admin: 03/27/20 21:17 Dose: 10 mg Documented by: Calcitonin (Miacalcin Injection -) 240 unit SQ DAILY [facility] Last Admin: 03/28/20 10:31 Dose: 240 unit Documented by: Heparin Sodium (Porcine) (Heparin -) 5,000 unit SQ BID [facility] Last Admin: 03/28/20 09:29 Dose: 5,000 unit Documented by: Hydralazine HCl (Apresoline -) 25 mg PO TID [facility] Last Admin: 03/28/20 06:09 Dose: 25 mg Documented by: Sodium Chloride (Normal Saline -) 1,000 mls @ 100 mls/hr IV ASDIR [facility] Last Admin: 03/28/20 06:23 Dose: 100 mls/hr Documented by: Labetalol HCl (Normodyne -) 400 mg PO BID [facility] Last Admin: 03/28/20 09:29 Dose: 400 mg Documented by: - Objective Vital Signs: Vital Signs Temperature 98.0 F 03/28/20 10:00 Pulse Rate 84 03/28/20 10:00 Respiratory Rate 20 03/28/20 10:00 Blood Pressure 150/80 03/28/20 10:00 O2 Sat by Pulse Oximetry (%) 98 03/28/20 09:00 Constitutional: Yes: Calm Eyes: Yes: Conjunctiva Clear HENT: Yes: Atraumatic Neck: Yes: Supple Cardiovascular: Yes: S1, S2 Respiratory: Yes: CTA Bilaterally Gastrointestinal: Yes: Normal Bowel Sounds, Soft Genitourinary: Yes: WNL Musculoskeletal: Yes: WNL Edema: No Neurological: Yes: Oriented Psychiatric: Yes: Oriented Labs: CBC, BMP 03/28/20 07:00 03/28/20 07:00 INR, PTT INR 1.12 (0.83-1.09) H 03/28/20 07:00 Problem List - Problems (1) Otcyg-em-bajpnlh kidney injury Code(s): N17.9 - ACUTE KIDNEY FAILURE, UNSPECIFIED; N18.9 - CHRONIC KIDNEY DISEASE, UNSPECIFIED Qualifiers: Chronic kidney disease stage: stage 3 (moderate) Assessment/Plan Current Medications Generic Name Dose Route Start Last Admin Trade Name Anette PRN Reason Stop Dose Admin Amlodipine Besylate 10 mg 03/28/20 10:00 03/28/20 09:29 Norvasc - PO 10 mg DAILY BRODIE Administration Atorvastatin Calcium 10 mg 03/27/20 22:00 03/27/20 21:17 Lipitor - PO 10 mg HS BRODIE Administration Calcitonin 240 unit 03/27/20 18:00 03/28/20 10:31 Miacalcin Injection - SQ 240 unit DAILY BRODIE Administration Heparin Sodium (Porcine) 5,000 unit 03/27/20 22:00 03/28/20 09:29 Heparin - SQ 5,000 unit BID BRODIE Administration Hydralazine HCl 25 mg 03/27/20 22:00 03/28/20 06:09 Apresoline - PO 25 mg TID BRODIE Administration Sodium Chloride 1,000 mls @ 100 mls/hr 03/27/20 15:15 03/28/20 06:23 Normal Saline - IV 100 mls/hr ASDIR BRODIE Administration Labetalol HCl 400 mg 03/27/20 22:00 03/28/20 09:29 Normodyne - PO 400 mg BID BRODIE Administration Laboratory Tests 09/03/19 09/03/19 11/29/19 05:50 05:50 14:40 Urine Protein Urine Blood RAGINI M-Kevyn 2.7 H Rheumatoid Factor SANG Screen Negative c-ANCA <1:20 Proteinase 3 (PR3) <3.5 p-ANCA <1:20 Atypical p-ANCA <1:20 Myeloperoxidase Ab <9.0 Sm (Chen) Antibody <0.2 M1A1 TANK CREWMAN Antibody <0.2 Double Strand DNA Ab 3 Glomerular Base Memb Ab 9 COVID-19 (KATIE) 11/29/19 03/27/20 03/28/20 14:40 18:50 11:25 Urine Protein 2+ H Urine Blood 2+ H RAGINI M-Kevyn Rheumatoid Factor < 10.0 SANG Screen c-ANCA Proteinase 3 (PR3) p-ANCA Atypical p-ANCA Myeloperoxidase Ab Sm (Chen) Antibody M1A1 TANK CREWMAN Antibody Double Strand DNA Ab Glomerular Base Memb Ab COVID-19 (KATIE) Pending Impression 1. CKD 2. HTN 3. JAY 4. HLD 5. protienuria 6. m-spike 7. hypercalcemia Plan - renal function improving - calcium improving - change fluids to 1/2 ns and decrease rate - repeat labs in am - oncology follow up for bone marrow biopsy - serologies noted - no indication for acute HD - yamila stable, cont meds - can give lasix if he develops overload
--- NOTE | 2020-03-28 13:52 | CON.HO ---
Consult Consult Specialty:: Hematology Reason for Consultation:: R/O Multiple Myeloma - History of Present Illness History of Present Illness: 74 y/o gentleman with a significant past medical history of CKD, HTN, and HLD who presented to [facility] at the behest of his Bobbin Inspector. Per conversation with Nephrology, patient's outpatient laboratory values revealed a serum creatinine elevated to 5.9 from 3.3. Patient calcium was also elevated at 15. Per conversation with daughter, patient has not had any significant weight loss. Patient is able to dress himself but the daughter prepares his meals. On presentation Ca 11,8 and Cr 7. He saw Dr. Chadwick on 11/2019. Hematology consulted for MM input - History Source History Provided By: Patient, Medical Record Limitations to Obtaining History: No Limitations - Past Medical History Cardio/Vascular: Yes: HTN Renal/: Yes: Renal Inusuff - Alcohol/Substance Use Hx Alcohol Use: No - Smoking History Smoking history: Never smoked Have you smoked in the past 12 months: No Home Medications - Allergies Allergies/Adverse Reactions: Allergies Allergy/AdvReac Type Severity Reaction Status Date / Time No Known Allergies Allergy Verified 03/27/20 12:50 - Home Medications Home Medications: Ambulatory Orders Amlodipine Besylate [Norvasc -] 10 mg PO DAILY #30 tablet 09/08/19 Atorvastatin Ca [Lipitor] 10 mg PO HS #30 tablet 09/08/19 Labetalol HCl [Normodyne -] 400 mg PO BID #60 tablet 09/08/19 Tamsulosin HCl [Flomax -] 0.4 mg PO DAILY@0830 #30 cap.er.24h 09/08/19 Triamcinolone 0.1% Ointment [Aristocort 0.1% Ointment -] 1 applic TP BID #1 each 09/08/19 Fluocinonide 0.05% Cream [Lidex 0.05% Cream -] 1 applic TP DAILY #1 tube 11/01/19 Hydralazine HCl 25 mg PO TID 30 Days #90 tablet 11/08/19 Labetalol HCl [Normodyne -] 200 mg PO TID 30 Days #90 tablet 11/08/19 Physical Exam Vital Signs: Vital Signs Temperature 98.0 F 03/28/20 10:00 Pulse Rate 84 03/28/20 10:00 Respiratory Rate 20 03/28/20 10:00 Blood Pressure 150/80 03/28/20 10:00 O2 Sat by Pulse Oximetry (%) 98 03/28/20 09:00 Labs: CBC, BMP 03/28/20 07:00 03/28/20 07:00 Assessment/Plan 74 y/o gentleman with a significant past medical history of CKD, HTN, and HLD who developed hypercalcemia and progressive renal failure for which evaluation for myeloma was started. He was seen by Dr. 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 A skeletal survey was obtained in 11/2019. Hematology consulted now for MM work up Recommend: 1) IR mediated bone marrow biopsy. Send morphology, flow cytometry cytogenetics and myeloma FISH panel as well as molecular profiling ([employer] or similar). Other heme malignancies will also be evaluated by B[facility]x given abnormalities with monocytes and eosinophils). PT/INR prior to procedure. 2) Consider PET-CT or Whole body low dose CT scan (or MRI) for better detection of lytic lesions. 3) If not done repeat SPEP, UPEP, RAGINI, FLC, Beta 2 microglobulin. 4) Pt appears as a good candidate for autologous stem cell transplant upon i nitial induction therapy. 5) Thank you for this consultation.
[2020-03-28] MEDS: SODIUM CHLORIDE 0.45% 1,000 ML IV SCH (13:55)
--- NOTE | 2020-03-28 17:29 | PN ---
Teaching Attending Note Name of Resident: Luis Miguel Reyna ATTENDING PHYSICIAN STATEMENT I saw and evaluated the patient. I reviewed the resident's note and discussed the case with the resident. I agree with the resident's findings and plan as documented. SUBJECTIVE: Seen and examined at bedside. No new complaints at this time. OBJECTIVE: Last Vital Signs Temp Pulse Resp BP Pulse Ox 97.5 F L 73 20 120/65 98 03/28/20 14:00 03/28/20 14:00 03/28/20 14:00 03/28/20 14:00 03/28/20 09:00 PE: Per resident note Labs/Imaging: reviewed ASSESSMENT AND PLAN: ASSESSMENT/PLAN: Patient is a 74 year old male with history of chronic kidney disease (baseline Cr approx. 3) hypertension, currently undergoing outpatient workup for multiple myeloma, hyperlipidemia presents at behest of his machine stacker (Dr. Owen) regarding corsening azotemia, hypercalcemia, hyperphosphatemia. #JAY, hypercalcemia, Macrocytic anemia: Undergoing workup for multiple myeloma -has confirmed M spike. Needs bone marrow biopsy -Renal, Heme-onc on board: appreciate recs -IV hydration -Consider PET-CT or Whole body low dose CT scan (or MRI) for better detection of lytic lesions. -calcitonin #JAY on CKD in setting of likely multiple myeloma -Renal, bladder US reveals bilateral echogenicity of the kidneys concerningi for chronic disease. 0.5cmright sided non-obstructing stone noted. -Hold lasix -IV hydration -nephro on board: appreciate recs #Macrocytic anemia with lymphocytosis -b12/folate wnl -has elevated monocytes and eosinophils -f/u bone marrow biopsy #HTN -Continue home Labetalol, Hydralazine, Amlodipine
[2020-03-28] MEDS: ATORVASTATIN CA 10 MG TABLET (FP) PO SCH (21:19)
[2020-03-29] MEDS: hydrALAZINE HCL 25 MG TABLET (FP) PO SCH ×3 (06:14→21:58)
[2020-03-29 07:44] LABS: BASO % 0.7 % (0-2.0); HEMATOCRIT 22.5 % (35.4-49); HEMOGLOBIN 7.4 GM/dL (11.7-16.9); LYMPH % 12.6 % (8-40); MCH 32.5 pg (25.7-33.7); MCHC 32.8 g/dl (32.0-35.9); MEAN CELL VOLUME 99.1 fl (80-96); MEAN PLT VOLUME 7.4 fl (7.5-11.1); MONO % 15.2 % (3.8-10.2); NEUT % 62.5 % (42.8-82.8); PLATELET COUNT 221 K/MM3 (134-434); RBC 2.27 M/mm3 (4.00-5.60); RDW 21.2 % (11.9-15.9); WHITE BLOOD COUNT 13.5 K/mm3 (4.0-10.0)
[2020-03-29 08:07] LABS: ALBUMIN 3.1 g/dl (3.4-5.0); BILIRUBIN,TOTAL 0.4 mg/dL (0.2-1); BLOOD UREA NITROGEN 56.2 mg/dL (7-18); CALCIUM 9.6 mg/dL (8.5-10.1); CREATININE 5.7 mg/dL (0.55-1.3); MAGNESIUM 2.2 mg/dL (1.8-2.4); PHOSPHOROUS 3.7 mg/dL (2.5-4.9); POTASSIUM 3.7 mmol/L (3.5-5.1); TOT PROT 8.8 g/dl (6.4-8.2)
[2020-03-29] MEDS: LABETALOL HCL 200 MG TABLET (FP) PO SCH ×2 (09:36→21:58)
[2020-03-29] MEDS: HEPARIN NA (PORCINE) 5,000 UNITS/ML 1ML VIAL SQ SCH (09:36)
[2020-03-29] MEDS: amLODIPine BESYLATE 10 MG TABLET (FP) PO SCH (09:36)
--- NOTE | 2020-03-29 12:28 | PN ---
Physical Exam: SUBJECTIVE: Patient seen and examined at bedside. He denies acute complaints today. Patient is for bone marrow biopsy today with Interventional Radiology. OBJECTIVE: Vital Signs Period Temp Pulse Resp BP Sys/Judd Pulse Ox Last 24 Hr 97.5 F-99.2 F 65-80 14-20 110-155/64-78 95-100 GENERAL: The patient is awake, alert, and fully oriented, in no acute distress. HEAD: Normocephalic, atraumatic. EYES: PERRL, extraocular movements intact, sclera anicteric, conjunctiva clear. ENT: Oropharynx clear, without erythema or exudates. Moist mucous membranes. NECK: Trachea midline, full range of motion. Supple without lymphadenopathy. LUNGS: Breath sounds equal, clear to auscultation bilaterally. No wheezes, no crackles. No accessory muscle use. HEART: Regular rate and rhythm. S1, S2 without murmur, rub or gallop. ABDOMEN: Soft, nondistended, nontender to light and deep palpation x4 quadrants. No rebound tenderness, no guarding. Normoactive bowel sounds x4 quadrants. No hepatosplenomegaly, no masses appreciated. EXTREMITIES: 2+ radial, dorsalis pedis pulses bilaterally. Warm, well-perfused. No lower extremity edema bilaterally. NEUROLOGICAL: Cranial nerves II through XII grossly intact. Normal speech. No gross focal deficits. PSYCH: Normal mood, normal affect upon my encounter. SKIN: Warm, dry. Laboratory Results - last 24 hr 03/27/20 03/28/20 03/29/20 07:00 07:00 07:00 WBC 13.5 H RBC 2.27 L Hgb 7.4 L Hct 22.5 L MCV 99.1 H MCH 32.5 MCHC 32.8 RDW 21.2 H Plt Count 221 MPV 7.4 L Absolute Neuts (auto) 8.4 H Neutrophils % 62.5 Lymphocytes % 12.6 Monocytes % 15.2 H Eosinophils % 9.0 H Basophils % 0.7 Nucleated RBC % 2 H Sodium Potassium Chloride Carbon Dioxide Anion Gap BUN Creatinine Est GFR (CKD-EPI)AfAm Est GFR (CKD-EPI)NonAf Random Glucose Serum Osmolality 307 H Calcium Phosphorus Magnesium Total Bilirubin AST ALT Alkaline Phosphatase Total Protein Albumin Vitamin B12 322 Serum Folate 9 03/29/20 07:00 WBC RBC Hgb Hct MCV MCH MCHC RDW Plt Count MPV Absolute Neuts (auto) Neutrophils % Lymphocytes % Monocytes % Eosinophils % Basophils % Nucleated RBC % Sodium 137 Potassium 3.7 Chloride 108 H Carbon Dioxide 18 L Anion Gap 10 BUN 56.2 H Creatinine 5.7 H Est GFR (CKD-EPI)AfAm 10.43 Est GFR (CKD-EPI)NonAf 9.00 Random Glucose 96 Serum Osmolality Calcium 9.6 Phosphorus 3.7 Magnesium 2.2 Total Bilirubin 0.4 AST 30 ALT 43 Alkaline Phosphatase 57 Total Protein 8.8 H Albumin 3.1 L Vitamin B12 Serum Folate Active Medications Generic Name Dose Route Start Last Admin Trade Name Freq PRN Reason Stop Dose Admin Amlodipine Besylate 10 mg 03/28/20 10:00 03/29/20 09:36 Norvasc - PO 10 mg DAILY BRODIE Administration Atorvastatin Calcium 10 mg 03/27/20 22:00 03/28/20 21:19 Lipitor - PO 10 mg HS BRODIE Administration Calcitonin 240 unit 03/27/20 18:00 03/28/20 10:31 Miacalcin Injection - SQ 240 unit DAILY BRODIE Administration Hydralazine HCl 25 mg 03/27/20 22:00 03/29/20 06:14 Apresoline - PO 25 mg TID BRODIE Administration Sodium Chloride 1,000 mls @ 75 mls/hr 03/28/20 13:45 03/28/20 13:55 1/2 Normal Saline IV 75 mls/hr ASDIR BRODIE Administration Labetalol HCl 400 mg 03/27/20 22:00 03/29/20 09:36 Normodyne - PO 400 mg BID BRODIE Administration ASSESSMENT/PLAN: Patient is a 74 year old male with history of chronic kidney disease (baseline Cr approx. 3) hypertension, hyperlipidemia presents at behest of his dredge mate (Dr. Owen) regarding corsening azotemia, hypercalcemia, hyperphosphatemia. Acute kidney injury on CKD -BUN 56, Cr 5.7 -improving -Renal, bladder US reveals bilateral echogenicity of the kidneys concerning for chronic disease. 0.5cm right sided non-obstructing stone noted. -Holding home Lasix -Continue hydration IV 0.45% normal saline at 75mL/ hour -Nephrology recommendations (Dr. Blount) appreciated. Macrocytic anemia -In setting of hypercalcemia, hyperphosphatemia, kidney injury concerning for multiple myeloma. -Follow up bone marrow biopsy results. -Bone scan from 11/2019 reveals no lytic lesions, or fractures -B12, Folic acid within normal limits -Hematology, oncology consult appreciated. Lymphocytosis -Predominance of eosinophils, monocytes (noted similarly on prior CBC). However currently afebrile. Will monitor off antibiotics -Suspect this chronic finding is secondary to likely multiple myeloma -Urine culture negative for growth -Hematology recommendations appreciated History of hypertension -Continue home Labetalol, Hydralazine, Amlodipine FEN -IV 0.45% normal saline at 75mL/ hour -Follow BMP, Phosphate -Regular diet Prophylaxis -Heparin 5000units subq TID Disposition -Continue care in medical surgical floor. Visit type - Emergency Visit Emergency Visit: Yes ED Registration Date: 03/27/20 Care time: The patient presented to the Emergency Department on the above date and was hospitalized for further evaluation of their emergent condition. - New Patient This patient is new to me today: No - Critical Care Critical Care patient: No - Discharge Referral Referred to [facility] Med P.C.: No ATTENDING PHYSICIAN STATEMENT I saw and evaluated the patient. I reviewed the resident's note and discussed the case with the resident. I agree with the resident's findings and plan as documented. SUBJECTIVE: OBJECTIVE: ASSESSMENT AND PLAN:
[2020-03-29] MEDS ORDERED: PT OWN MED DRAWER 7, Y5N ONE (12:32)
--- NOTE | 2020-03-29 12:52 | PN ---
Progress Note, Physician History of Present Illness: Pt seen and examined at bedside. He denies shortness of breath. - Current Medication List Current Medications: Active Medications Amlodipine Besylate (Norvasc -) 10 mg PO DAILY [facility] Last Admin: 03/29/20 09:36 Dose: 10 mg Documented by: Atorvastatin Calcium (Lipitor -) 10 mg PO HS [facility] Last Admin: 03/28/20 21:19 Dose: 10 mg Documented by: Calcitonin (Miacalcin Injection -) 240 unit SQ DAILY [facility] Last Admin: 03/28/20 10:31 Dose: 240 unit Documented by: Hydralazine HCl (Apresoline -) 25 mg PO TID [facility] Last Admin: 03/29/20 06:14 Dose: 25 mg Documented by: Sodium Chloride (1/2 Normal Saline) 1,000 mls @ 75 mls/hr IV ASDIR [facility] Last Admin: 03/28/20 13:55 Dose: 75 mls/hr Documented by: Labetalol HCl (Normodyne -) 400 mg PO BID [facility] Last Admin: 03/29/20 09:36 Dose: 400 mg Documented by: - Objective Vital Signs: Vital Signs Temperature 99.2 F 03/29/20 09:00 Pulse Rate 65 03/29/20 12:22 Respiratory Rate 14 03/29/20 12:22 Blood Pressure 110/71 03/29/20 12:22 O2 Sat by Pulse Oximetry (%) 98 03/29/20 12:22 Constitutional: Yes: Calm Eyes: Yes: Conjunctiva Clear HENT: Yes: Atraumatic Neck: Yes: Supple Cardiovascular: Yes: S1, S2 Respiratory: Yes: CTA Bilaterally Gastrointestinal: Yes: Soft Genitourinary: Yes: WNL Musculoskeletal: Yes: WNL Extremities: Yes: WNL Edema: No Neurological: Yes: Oriented Psychiatric: Yes: Oriented Labs: CBC, BMP 03/29/20 07:00 03/29/20 07:00 INR, PTT INR 1.12 (0.83-1.09) H 03/28/20 07:00 Problem List - Problems (1) Ktyrv-fk-dwstohj kidney injury Code(s): N17.9 - ACUTE KIDNEY FAILURE, UNSPECIFIED; N18.9 - CHRONIC KIDNEY DISEASE, UNSPECIFIED Qualifiers: Chronic kidney disease stage: stage 3 (moderate) Assessment/Plan Current Medications Generic Name Dose Route Start Last Admin Trade Name Freq PRN Reason Stop Dose Admin Amlodipine Besylate 10 mg 03/28/20 10:00 03/29/20 09:36 Norvasc - PO 10 mg DAILY BRODIE Administration Atorvastatin Calcium 10 mg 03/27/20 22:00 03/28/20 21:19 Lipitor - PO 10 mg HS BRODIE Administration Calcitonin 240 unit 03/27/20 18:00 03/28/20 10:31 Miacalcin Injection - SQ 240 unit DAILY BR[facility]IE Administration Hydralazine HCl 25 mg 03/27/20 22:00 03/29/20 06:14 Apresoline - PO 25 mg TID BRODIE Administration Sodium Chloride 1,000 mls @ 75 mls/hr 03/28/20 13:45 03/28/20 13:55 1/2 Normal Saline IV 75 mls/hr ASDIR BRODIE Administration Labetalol HCl 400 mg 03/27/20 22:00 03/29/20 09:36 Normodyne - PO 400 mg BID BRODIE Administration Impression 1. CKD 2. HTN 3. JAY 4. HLD 5. protienuria 6. m-spike - r/o myeloma 7. hypercalcemia Plan - calcium improving - repeat labs in am - renal function improving - bone marrow biopsy today - if no diagnosis can be made from BM then will need renal biopsy - no indication for acute HD
[2020-03-29 13:02] LABS: ANISOCYTOSIS 1+; MACROCYTOSIS 1+; PLATELET ESTIMATE NORMAL
[2020-03-29] MEDS: CALCITONIN - SALMON SYNTHETIC 400 UNIT/2 ML VIAL SQ SCH (13:12)
[2020-03-29] MEDS: SODIUM CHLORIDE 0.45% 1,000 ML IV SCH ×2 (14:20→19:03)
--- NOTE | 2020-03-29 15:37 | PN ---
Teaching Attending Note Name of Resident: Luis Miguel Reyna ATTENDING PHYSICIAN STATEMENT I saw and evaluated the patient. I reviewed the resident's note and discussed the case with the resident. I agree with the resident's findings and plan as documented. SUBJECTIVE: Seen and examined at bedside. No new complaints at this time. Pt to go for bone marrow biopsy today OBJECTIVE: Last Vital Signs Temp Pulse Resp BP Pulse Ox 97.9 F 84 18 154/62 98 03/29/20 13:00 03/29/20 13:00 03/29/20 13:00 03/29/20 13:00 03/29/20 12:22 PE: Per resident note Labs/Imaging: reviewed ASSESSMENT AND PLAN: ASSESSMENT/PLAN: Patient is a 74 year old male with history of chronic kidney disease (baseline Cr approx. 3) hypertension, currently undergoing outpatient workup for multiple myeloma, hyperlipidemia presents at behest of his test puller (Dr. Owen) regarding corsening azotemia, hypercalcemia, hyperphosphatemia. #JAY, hypercalcemia, Macrocytic anemia: Undergoing workup for multiple myeloma -has confirmed M spike. Bone marrow biopsy obtained: pending results -Renal, Heme-onc on board: appreciate recs -IV hydration -Consider PET-CT or Whole body low dose CT scan (or MRI) for better detection of lytic lesions. -calcitonin #JAY on CKD in setting of likely multiple myeloma -Renal, bladder US reveals bilateral echogenicity of the kidneys concerningi for chronic disease. 0.5cmright sided non-obstructing stone noted. -Hold lasix -IV hydration -nephro on board: appreciate recs #Macrocytic anemia with lymphocytosis -b12/folate wnl -has elevated monocytes and eosinophils -f/u bone marrow biopsy #HTN -Continue home Labetalol, Hydralazine, Amlodipine
[2020-03-29] MEDS: ATORVASTATIN CA 10 MG TABLET (FP) PO SCH (21:58)
[2020-03-30] MEDS: hydrALAZINE HCL 25 MG TABLET (FP) PO SCH ×3 (05:22→22:01)
[2020-03-30 07:39] LABS: HEMATOCRIT 21.8 % (35.4-49); HEMOGLOBIN 7.2 GM/dL (11.7-16.9); MCH 32.6 pg (25.7-33.7); MCHC 32.8 g/dl (32.0-35.9); MEAN CELL VOLUME 99.4 fl (80-96); MEAN PLT VOLUME 7.2 fl (7.5-11.1); PLATELET COUNT 217 K/MM3 (134-434); RBC 2.19 M/mm3 (4.00-5.60); RDW 21.6 % (11.9-15.9); WHITE BLOOD COUNT 13.5 K/mm3 (4.0-10.0)
[2020-03-30 08:03] LABS: BILIRUBIN,TOTAL 0.7 mg/dL (0.2-1); BLOOD UREA NITROGEN 53.6 mg/dL (7-18); CALCIUM 10.1 mg/dL (8.5-10.1); CREATININE 5.7 mg/dL (0.55-1.3); MAGNESIUM 2.1 mg/dL (1.8-2.4); PHOSPHOROUS 4.2 mg/dL (2.5-4.9); POTASSIUM 3.8 mmol/L (3.5-5.1); TOT PROT 8.5 g/dl (6.4-8.2)
[2020-03-30] MEDS: LABETALOL HCL 200 MG TABLET (FP) PO SCH ×2 (09:44→22:01)
[2020-03-30] MEDS: amLODIPine BESYLATE 10 MG TABLET (FP) PO SCH (09:44)
--- NOTE | 2020-03-30 14:02 | PN ---
Teaching Attending Note Name of Resident: Luis Miguel Reyna ATTENDING PHYSICIAN STATEMENT I saw and evaluated the patient. I reviewed the resident's note and discussed the case with the resident. I agree with the resident's findings and plan as documented. SUBJECTIVE: Seen and examined at bedside. No new complaints at this time. Pending bone marrow biopsy results OBJECTIVE: Last Vital Signs Temp Pulse Resp BP Pulse Ox 98.2 F 78 18 140/82 96 03/30/20 10:03/30/20 10:00 03/30/20 10:03/30/20 10:03/30/20 09:00 PE: Per resident note Labs/Imaging: reviewed ASSESSMENT AND PLAN: ASSESSMENT/PLAN: Patient is a 74 year old male with history of chronic kidney disease (baseline Cr approx. 3) hypertension, currently undergoing outpatient workup for multiple myeloma, hyperlipidemia presents at behest of his sweet pickled fruit maker (Dr. Owen) regarding corsening azotemia, hypercalcemia, hyperphosphatemia. #JAY, hypercalcemia, Macrocytic anemia: Undergoing workup for multiple myeloma -has confirmed M spike. Bone marrow biopsy obtained: pending results -Renal, Heme-onc on board: appreciate recs -IV hydration -Consider PET-CT or Whole body low dose CT scan (or MRI) for better detection of lytic lesions. -calcitonin #JAY on CKD in setting of likely multiple myeloma -Renal, bladder US reveals bilateral echogenicity of the kidneys concerningi for chronic disease. 0.5cmright sided non-obstructing stone noted. -Hold lasix -IV hydration -nephro on board: appreciate recs #Macrocytic anemia with lymphocytosis -b12/folate wnl -has elevated monocytes and eosinophils -f/u bone marrow biopsy #HTN -Continue home Labetalol, Hydralazine, Amlodipine
--- NOTE | 2020-03-30 14:15 | PN ---
Physical Exam: SUBJECTIVE: Patient seen and examined at bedside. He denies acute complaints. OBJECTIVE: Vital Signs Period Temp Pulse Resp BP Sys/Judd Pulse Ox Last 24 Hr 97.4 F-98.2 F 72-84 18-20 130-144/60-86 96-96 GENERAL: The patient is awake, alert, and fully oriented, in no acute distress. HEAD: Normocephalic, atraumatic. EYES: PERRL, extraocular movements intact, sclera anicteric, conjunctiva clear. ENT: Oropharynx clear, without erythema or exudates. Moist mucous membranes. NECK: Trachea midline, full range of motion. Supple without lymphadenopathy. LUNGS: Breath sounds equal, clear to auscultation bilaterally. No wheezes, no crackles. No accessory muscle use. HEART: Regular rate and rhythm. S1, S2 without murmur, rub or gallop. ABDOMEN: Soft, nondistended, nontender to light and deep palpation x4 quadrants. No rebound tenderness, no guarding. Normoactive bowel sounds x4 quadrants. No hepatosplenomegaly, no masses appreciated. EXTREMITIES: 2+ radial, dorsalis pedis pulses bilaterally. Warm, well-perfused. No lower extremity edema bilaterally. NEUROLOGICAL: Cranial nerves II through XII grossly intact. Normal speech. No gross focal deficits. PSYCH: Normal mood, normal affect upon my encounter. SKIN: Warm, dry. Laboratory Results - last 24 hr 03/27/20 03/29/20 03/30/20 18:50 21:57 06:40 WBC 13.5 H RBC 2.19 L Hgb 7.2 L Hct 21.8 L MCV 99.4 H MCH 32.6 MCHC 32.8 RDW 21.6 H Plt Count 217 MPV 7.2 L Sodium Potassium Chloride Carbon Dioxide Anion Gap BUN Creatinine Est GFR (CKD-EPI)AfAm Est GFR (CKD-EPI)NonAf POC Glucometer 85 Random Glucose Calcium Phosphorus Magnesium Total Bilirubin AST ALT Alkaline Phosphatase Total Protein Albumin COVID-19 (KATIE) Not detected 03/30/20 06:40 WBC RBC Hgb Hct MCV MCH MCHC RDW Plt Count MPV Sodium 139 Potassium 3.8 Chloride 111 H Carbon Dioxide 17 L Anion Gap 11 BUN 53.6 H Creatinine 5.7 H Est GFR (CKD-EPI)AfAm 10.43 Est GFR (CKD-EPI)NonAf 9.00 POC Glucometer Random Glucose 88 Calcium 10.1 Phosphorus 4.2 Magnesium 2.1 Total Bilirubin 0.7 AST 30 ALT 38 Alkaline Phosphatase 58 Total Protein 8.5 H Albumin 3.0 L COVID-19 (KATIE) Active Medications Generic Name Dose Route Start Last Admin Trade Name Anette PRN Reason Stop Dose Admin Amlodipine Besylate 10 mg 03/28/20 10:00 03/30/20 09:44 Norvasc - PO 10 mg DAILY BRODIE Administration Atorvastatin Calcium 10 mg 03/27/20 22:00 03/29/20 21:58 Lipitor - PO 10 mg HS BRODIE Administration Hydralazine HCl 25 mg 03/27/20 22:00 03/30/20 13:02 Apresoline - PO 25 mg TID BRODIE Administration Sodium Chloride 1,000 mls @ 75 mls/hr 03/28/20 13:45 03/29/20 19:03 1/2 Normal Saline IV 75 mls/hr ASDIR BRODIE Administration Labetalol HCl 400 mg 03/27/20 22:00 03/30/20 09:44 Normodyne - PO 400 mg BID BRODIE Administration ASSESSMENT/PLAN: Patient is a 74 year old male with history of chronic kidney disease (baseline Cr approx. 3) hypertension, hyperlipidemia presents at behest of his n ephrologist (Dr. Owen) regarding corsening azotemia, hypercalcemia, hyperphosphatemia. Acute kidney injury on CKD -BUN 56, Cr 5.7 -improving -Renal, bladder US reveals bilateral echogenicity of the kidneys concerning for chronic disease. 0.5cm right sided non-obstructing stone noted. -Holding home Lasix -Continue hydration IV 0.45% normal saline at 75mL/ hour -Nephrology recommendations (Dr. Blount) appreciated. Macrocytic anemia -In setting of hypercalcemia, hyperphosphatemia, kidney injury concerning for multiple myeloma. -Follow up bone marrow biopsy results. -Bone scan from 11/2019 reveals no lytic lesions, or fractures -B12, Folic acid within normal limits -Hematology, oncology consult appreciated. Lymphocytosis -Predominance of eosinophils, monocytes (noted similarly on prior CBC). However currently afebrile. Will monitor off antibiotics -Suspect this chronic finding is secondary to likely multiple myeloma -Urine culture negative for growth -Hematology recommendations appreciated History of hypertension -Continue home Labetalol, Hydralazine, Amlodipine FEN -IV 0.45% normal saline at 75mL/ hour -Follow BMP, Phosphate -Regular diet Prophylaxis -Heparin 5000units subq TID Disposition -Continue care in medical surgical floor. Visit type - Emergency Visit Emergency Visit: Yes ED Registration Date: 03/27/20 Care time: The patient presented to the Emergency Department on the above date and was hospitalized for further evaluation of their emergent condition. - New Patient This patient is new to me today: No - Critical Care Critical Care patient: No - Discharge Referral Referred to [facility] Med P.C.: No ATTENDING PHYSICIAN STATEMENT I saw and evaluated the patient. I reviewed the resident's note and discussed the case with the resident. I agree with the resident's findings and plan as documented. SUBJECTIVE: OBJECTIVE: ASSESSMENT AND PLAN:
--- NOTE | 2020-03-30 14:29 | PN ---
Progress Note, Physician History of Present Illness: Pt seen and examined at bedside. He denies shortness of breath. - Current Medication List Current Medications: Active Medications Amlodipine Besylate (Norvasc -) 10 mg PO DAILY [facility] Last Admin: 03/30/20 09:44 Dose: 10 mg Documented by: Atorvastatin Calcium (Lipitor -) 10 mg PO HS [facility] Last Admin: 03/29/20 21:58 Dose: 10 mg Documented by: Hydralazine HCl (Apresoline -) 25 mg PO TID [facility] Last Admin: 03/30/20 13:02 Dose: 25 mg Documented by: Sodium Chloride (1/2 Normal Saline) 1,000 mls @ 75 mls/hr IV ASDIR [facility] Last Admin: 03/29/20 19:03 Dose: 75 mls/hr Documented by: Labetalol HCl (Normodyne -) 400 mg PO BID [facility] Last Admin: 03/30/20 09:44 Dose: 400 mg Documented by: - Objective Vital Signs: Vital Signs Temperature 98.2 F 03/30/20 10:00 Pulse Rate 78 03/30/20 10:00 Respiratory Rate 18 03/30/20 10:00 Blood Pressure 140/82 03/30/20 10:00 O2 Sat by Pulse Oximetry (%) 96 03/30/20 09:00 Constitutional: Yes: Calm Eyes: Yes: Conjunctiva Clear HENT: Yes: Atraumatic Neck: Yes: Supple Cardiovascular: Yes: S1, S2 Respiratory: Yes: CTA Bilaterally Gastrointestinal: Yes: Normal Bowel Sounds, Soft Genitourinary: Yes: WNL Musculoskeletal: Yes: WNL Edema: LLE: Trace, RLE: Trace Neurological: Yes: Oriented Psychiatric: Yes: Oriented Labs: CBC, BMP 03/30/20 06:40 03/30/20 06:40 INR, PTT INR 1.12 (0.83-1.09) H 03/28/20 07:00 Problem List - Problems (1) [id number]-[id number] kidney injury Code(s): N17.9 - ACUTE KIDNEY FAILURE, UNSPECIFIED; N18.9 - CHRONIC KIDNEY DISEASE, UNSPECIFIED Qualifiers: Chronic kidney disease stage: stage 3 (moderate) Assessment/Plan Current Medications Generic Name Dose Route Start Last Admin Trade Name Freq PRN Reason Stop Dose Admin Amlodipine Besylate 10 mg 03/28/20 10:00 03/30/20 09:44 Norvasc - PO 10 mg DAILY BRODIE Administration Atorvastatin Calcium 10 mg 03/27/20 22:00 03/29/20 21:58 Lipitor - PO 10 mg HS BRODIE Administration Hydralazine HCl 25 mg 03/27/20 22:00 03/30/20 13:02 Apresoline - PO 25 mg TID BRODIE Administration Sodium Chloride 1,000 mls @ 75 mls/hr 03/28/20 13:45 03/29/20 19:03 1/2 Normal Saline IV 75 mls/hr ASDIR BRODIE Administration Labetalol HCl 400 mg 03/27/20 22:00 03/30/20 09:44 Normodyne - PO 400 mg BID BRODIE Administration Impression 1. CKD 2. HTN 3. JAY 4. HLD 5. protienuria 6. m-spike - r/o myeloma 7. hypercalcemia Plan - no change in cmm inspector - repeat labs in am - follow bone marrow results - may need renal biopsy - no indication for HD - monitor calcium - discussed with medical team
[2020-03-30] MEDS: SODIUM CHLORIDE 0.45% 1,000 ML IV SCH (20:21)
[2020-03-30] MEDS ORDERED: MELATONIN 5 MG TABLETS PO ONE (21:26)
[2020-03-30] MEDS: ATORVASTATIN CA 10 MG TABLET (FP) PO SCH (22:01)
[2020-03-31] MEDS: hydrALAZINE HCL 25 MG TABLET (FP) PO SCH ×3 (05:49→21:26)
[2020-03-31 07:47] LABS: HEMATOCRIT 22.7 % (35.4-49); HEMOGLOBIN 7.4 GM/dL (11.7-16.9); MCH 32.6 pg (25.7-33.7); MCHC 32.8 g/dl (32.0-35.9); MEAN CELL VOLUME 99.4 fl (80-96); MEAN PLT VOLUME 7.2 fl (7.5-11.1); PLATELET COUNT 229 K/MM3 (134-434); RBC 2.28 M/mm3 (4.00-5.60); RDW 21.2 % (11.9-15.9); WHITE BLOOD COUNT 14.2 K/mm3 (4.0-10.0)
--- NOTE | 2020-03-31 07:57 | PN.HO ---
Progress Note (short form) - Note Progress Note: PAtient seen nd examined Discussed via pulp maker Denies specific complaints AFVSS Cor: RSR, No murmurs, No gallops Lungs: Clear to P&A Abd: Soft, Normal bowel sounds, No organomegaly Ext:No significant edema LAbs/Meds reviewed A/P 74 y/o patient with HTN/HLD --- JAY/anemia, concern for myeloma On /2 NS at 75ml/hr. -- with gradually improving renal function Check LDH/uric acid await bone marrow bx check SFLCA Discussed via content development manager concerns for myeloma. need for therapy.
[2020-03-31 08:27] LABS: ALBUMIN 3.2 g/dl (3.4-5.0); BILIRUBIN,TOTAL 0.4 mg/dL (0.2-1); BLOOD UREA NITROGEN 55.4 mg/dL (7-18); CALCIUM 10.4 mg/dL (8.5-10.1); CREATININE 5.9 mg/dL (0.55-1.3); PHOSPHOROUS 4.4 mg/dL (2.5-4.9); POTASSIUM 3.7 mmol/L (3.5-5.1)
[2020-03-31] MEDS: LABETALOL HCL 200 MG TABLET (FP) PO SCH ×2 (09:41→21:27)
[2020-03-31] MEDS: amLODIPine BESYLATE 10 MG TABLET (FP) PO SCH (09:41)
[2020-03-31] MEDS ORDERED: FUROSEMIDE 40 MG/4 ML INJECTABLE VIAL IVPUSH ONE (11:50)
--- NOTE | 2020-03-31 11:52 | PN ---
Progress Note, Physician History of Present Illness: Pt seen and examined at bedside. He denies shortness of breath. - Current Medication List Current Medications: Active Medications Amlodipine Besylate (Norvasc -) 10 mg PO DAILY [facility] Last Admin: 03/31/20 09:41 Dose: 10 mg Documented by: Atorvastatin Calcium (Lipitor -) 10 mg PO HS [facility] Last Admin: 03/30/20 22:01 Dose: 10 mg Documented by: Calcitonin (Miacalcin Injection -) 240 unit IM DAILY [facility] Furosemide (Lasix Injection -) 40 mg IVPUSH ONCE ONE Stop: 03/31/20 11:51 Hydralazine HCl (Apresoline -) 25 mg PO TID [facility] Last Admin: 03/31/20 05:49 Dose: 25 mg Documented by: Sodium Chloride (1/2 Normal Saline) 1,000 mls @ 75 mls/hr IV ASDIR [facility] Last Admin: 03/30/20 20:21 Dose: Not Given Documented by: Labetalol HCl (Normodyne -) 400 mg PO BID [facility] Last Admin: 03/31/20 09:41 Dose: 400 mg Documented by: - Objective Vital Signs: Vital Signs Temperature 98.5 F 03/31/20 09:00 Pulse Rate 70 03/31/20 09:00 Respiratory Rate 20 03/31/20 09:00 Blood Pressure 160/84 03/31/20 09:00 O2 Sat by Pulse Oximetry (%) 95 03/31/20 09:00 Constitutional: Yes: Calm Eyes: Yes: Conjunctiva Clear HENT: Yes: Atraumatic Neck: Yes: Supple Cardiovascular: Yes: S1, S2 Respiratory: Yes: CTA Bilaterally Gastrointestinal: Yes: Soft Genitourinary: Yes: WNL Edema: Yes Edema: LLE: Trace, RLE: Trace Neurological: Yes: Oriented Psychiatric: Yes: Oriented Labs: CBC, BMP 03/31/20 07:04 03/31/20 07:04 INR, PTT INR 1.12 (0.83-1.09) H 03/28/20 07:00 Problem List - Problems (1) Jdqoj-pr-ipzdqcu kidney injury Code(s): N17.9 - ACUTE KIDNEY FAILURE, UNSPECIFIED; N18.9 - CHRONIC KIDNEY DI SEASE, UNSPECIFIED Qualifiers: Chronic kidney disease stage: stage 3 (moderate) Assessment/Plan Current Medications Generic Name Dose Route Start Last Admin Trade Name Anette PRN Reason Stop Dose Admin Amlodipine Besylate 10 mg 03/28/20 10:00 03/31/20 09:41 Norvasc - PO 10 mg DAILY [facility]IE Administration Atorvastatin Calcium 10 mg 03/27/20 22:00 03/30/20 22:01 Lipitor - PO 10 mg HS BRODIE Administration Calcitonin 240 unit 03/31/20 12:00 Miacalcin Injection - IM DAILY [facility] Furosemide 40 mg 03/31/20 11:50 Lasix Injection - IVPUSH 03/31/20 11:51 ONCE ONE Hydralazine HCl 25 mg 03/27/20 22:00 03/31/20 05:49 Apresoline - PO 25 mg TID BRODIE Administration Sodium Chloride 1,000 mls @ 75 mls/hr 03/28/20 13:45 03/30/20 20:21 1/2 Normal Saline IV Not Given ASDIR [facility] Labetalol HCl 400 mg 03/27/20 22:00 03/31/20 09:41 Normodyne - PO 400 mg BID BRODIE Administration Impression 1. CKD 2. HTN 3. JAY 4. HLD 5. protienuria 6. m-spike - r/o myeloma 7. hypercalcemia Plan - renal function not changed much - restart calcitonin as calcium rising - cont fluids, will give dose of lasix - repeat labs in am - follow bone marrow biopsy - start po bicarb - discussed with Dr Owen - hold off HD for now - may need renal biopsy if bone marrow in not conclusive - monitor calcium
[2020-03-31] MEDS ORDERED: CALCITONIN - SALMON SYNTHETIC 400 UNIT/2 ML VIAL IM ONE (12:15)
--- NOTE | 2020-03-31 14:03 | PN ---
Physical Exam: SUBJECTIVE: Patient seen and examined. No acute events noted. Denies any acute complaints. OBJECTIVE: Vital Signs Period Temp Pulse Resp BP Sys/Judd Pulse Ox Last 24 Hr 98.2 F-98.9 F 63-71 20-20 119-160/62-84 95-95 GENERAL: The patient is awake, alert, and oriented but mild confusion still present worse than baseline. HEART: Regular rate and rhythm, S1, S2 without murmur, rub or gallop. ABDOMEN: Soft, nontender, nondistended. EXTREMITIES: 2+ pulses, warm, well-perfused, no edema. NEUROLOGICAL: Normal speech, gait not observed Laboratory Results - last 24 hr 03/31/20 03/31/20 07:04 07:04 WBC 14.2 H RBC 2.28 L Hgb 7.4 L Hct 22.7 L MCV 99.4 H MCH 32.6 MCHC 32.8 RDW 21.2 H Plt Count 229 MPV 7.2 L Sodium 137 Potassium 3.7 Chloride 109 H Carbon Dioxide 16 L Anion Gap 11 BUN 55.4 H Creatinine 5.9 H Est GFR (CKD-EPI)AfAm 10.01 Est GFR (CKD-EPI)NonAf 8.63 Random Glucose 96 Calcium 10.4 H Phosphorus 4.4 Magnesium 2.0 Total Bilirubin 0.4 AST 36 ALT 43 Alkaline Phosphatase 59 Total Protein 9.0 H Albumin 3.2 L Active Medications Generic Name Dose Route Start Last Admin Trade Name Freq PRN Reason Stop Dose Admin Amlodipine Besylate 10 mg 03/28/20 10:00 03/31/20 09:41 Norvasc - PO 10 mg DAILY BRODIE Administration Atorvastatin Calcium 10 mg 03/27/20 22:00 03/30/20 22:01 Lipitor - PO 10 mg HS BRODIE Administration Calcitonin 240 unit 04/01/20 10:00 Miacalcin Injection - IM DAILY BRODIE Hydralazine HCl 25 mg 03/27/20 22:00 03/31/20 05:49 Apresoline - PO 25 mg TID BRODIE Administration Sodium Chloride 1,000 mls @ 75 mls/hr 03/28/20 13:45 03/30/20 20:21 1/2 Normal Saline IV Not Given ASDIR BRODIE Labetalol HCl 400 mg 03/27/20 22:00 03/31/20 09:41 Normodyne - PO 400 mg BID BRODIE Administration ASSESSMENT/PLAN: Patient is a 74 year old male with history of chronic kidney disease (baseline Cr approx. 3) hypertension, hyperlipidemia presents at behest of his batterboard setter (Dr. Owen) regarding corsening azotemia, hypercalcemia, hyperphosphatemia. #JAY on CKD -BUN/Cr has not changed significantly with Rx - continue hydration -Renal, bladder US reveals bilateral echogenicity of the kidneys concerning for chronic disease. 0.5cm right sided non-obstructing stone noted. -gave one dose of home Lasix dose for Ca reduction -Continue hydration IV 0.45% normal saline at 75mL/ hour -Nephrology recommendations (Dr. Blount) appreciated. - confusion could be two-fold 2/2 hypercalcemia vs uremic dysunction due to CKD #Hypercalcemia likely 2/2 Multiple myeloma as part of the CRAB diagnostic criteria - Will give dose of calcitonin today as their was acute rise in Ca - mentation was stable today, slightly reduced from prior - dose of PO bicarb given - Consider PET-CT or Whole body low dose CT scan (or MRI) for better detection of lytic lesions. - no indication for dialysis at this time, will not start bisphosphonates as pt has JAY and no indication for steroids at this time as Ca is stable. #Macrocytic anemia -In setting of hypercalcemia, hyperphosphatemia, kidney injury concerning for multiple myeloma. -Follow up bone marrow biopsy results. -Bone scan 11/2019 w/o lytic lesions, or fractures -B12, Folic acid within normal limits -Hematology, oncology consult appreciated. #Lymphocytosis -Predominance of eosinophils, monocytes (noted similarly on prior CBC). However currently afebrile. Will monitor off antibiotics -Suspect this chronic finding is secondary to likely multiple myeloma -Urine culture negative for growth -Hematology recommendations appreciated #Htn -Continue home Labetalol, Hydralazine, Amlodipine FEN -IV 0.45% normal saline at 75mL/ hour -Follow BMP, Phosphate -Regular diet Prophylaxis -Heparin 5000units subq TID Disposition -Continue care in medical surgical floor. Visit type - Emergency Visit Emergency Visit: Yes ED Registration Date: 03/27/20 Care time: The patient presented to the Emergency Department on the above date and was hospitalized for further evaluation of their emergent condition. - New Patient This patient is new to me today: Yes Date on this admission: 03/31/20 - Critical Care Critical Care patient: No - Discharge Referral Referred to [facility] No ATTENDING PHYSICIAN STATEMENT I saw and evaluated the patient. I reviewed the resident's note and discussed the case with the resident. I agree with the resident's findings and plan as documented. SUBJECTIVE: OBJECTIVE: ASSESSMENT AND PLAN:
[2020-03-31] MEDS: SODIUM CHLORIDE 0.45% 1,000 ML IV SCH ×2 (14:09→22:30)
--- NOTE | 2020-03-31 15:16 | PN ---
Teaching Attending Note Name of Resident: Javier Gates ATTENDING PHYSICIAN STATEMENT I saw and evaluated the patient. I reviewed the resident's note and discussed the case with the resident. I agree with the resident's findings and plan as documented. SUBJECTIVE: Seen and examined at bedside. No new complaints at this time. Pending bone m arrow biopsy results OBJECTIVE: Last Vital Signs Temp Pulse Resp BP Pulse Ox 98.2 F 63 20 119/62 95 03/31/20 13:55 03/31/20 13:55 03/31/20 13:55 03/31/20 13:55 03/31/20 09:00 PE: Per resident note Labs/Imaging: reviewed ASSESSMENT AND PLAN: ASSESSMENT/PLAN: Patient is a 74 year old male with history of chronic kidney disease (baseline Cr approx. 3) hypertension, currently undergoing outpatient workup for multiple myeloma, hyperlipidemia presents at behest of his raw stock machine loader (Dr. Owen) regarding corsening azotemia, hypercalcemia, hyperphosphatemia. #JAY, hypercalcemia, Macrocytic anemia: Undergoing workup for multiple myeloma -has confirmed M spike. Bone marrow biopsy obtained: pending results -Renal, Heme-onc on board: appreciate recs -IV hydration -Consider PET-CT or Whole body low dose CT scan (or MRI) for better detection of lytic lesions. -calcitonin #JAY on CKD in setting of likely multiple myeloma -Renal, bladder US reveals bilateral echogenicity of the kidneys concerningi for chronic disease. 0.5cmright sided non-obstructing stone noted. -Hold lasix -IV hydration -nephro on board: appreciate recs #Macrocytic anemia with lymphocytosis -b12/folate wnl -has elevated monocytes and eosinophils -f/u bone marrow biopsy #HTN -Continue home Labetalol, Hydralazine, Amlodipine
[2020-03-31] MEDS: ATORVASTATIN CA 10 MG TABLET (FP) PO SCH (21:25)
[2020-04-01] MEDS: hydrALAZINE HCL 25 MG TABLET (FP) PO SCH ×3 (05:32→21:42)
[2020-04-01 07:49] LABS: BASO % 0.9 % (0-2.0); EOS % 6.3 % (0-4.5); HEMATOCRIT 23.2 % (35.4-49); HEMOGLOBIN 7.7 GM/dL (11.7-16.9); LYMPH % 15.3 % (8-40); MCH 33.5 pg (25.7-33.7); MCHC 33.4 g/dl (32.0-35.9); MEAN CELL VOLUME 100.4 fl (80-96); MEAN PLT VOLUME 7.5 fl (7.5-11.1); MONO % 13.1 % (3.8-10.2); NEUT % 64.4 % (42.8-82.8); PLATELET COUNT 241 K/MM3 (134-434); RBC 2.31 M/mm3 (4.00-5.60); RDW 21.4 % (11.9-15.9); WHITE BLOOD COUNT 12.6 K/mm3 (4.0-10.0)
[2020-04-01 07:59] LABS: ALBUMIN 3.4 g/dl (3.4-5.0); BILIRUBIN,TOTAL 0.9 mg/dL (0.2-1); BLOOD UREA NITROGEN 54.8 mg/dL (7-18); CALCIUM 10.1 mg/dL (8.5-10.1); POTASSIUM 3.6 mmol/L (3.5-5.1); TOT PROT 9.6 g/dl (6.4-8.2); URIC ACID 11.1 mg/dL (2.6-7.2)
--- NOTE | 2020-04-01 09:22 | PN ---
Physical Exam: SUBJECTIVE: Patient seen and examined. No acute events noted. Mentation improved today not confused on my examination at all. Pt understands the plan at this time. Denies any acute complaints. OBJECTIVE: Vital Signs Period Temp Pulse Resp BP Sys/Judd Pulse Ox Last 24 Hr 98.0 F-98.3 F 62-74 18-20 119-152/62-94 91 GENERAL: The patient is awake, alert, and oriented but mild confusion still present worse than baseline. HEART: Regular rate and rhythm, S1, S2 without murmur, rub or gallop. ABDOMEN: Soft, nontender, nondistended. EXTREMITIES: 2+ pulses, warm, well-perfused, no edema. NEUROLOGICAL: Normal speech, gait not observed Laboratory Results - last 24 hr 04/01/20 04/01/20 06:50 06:50 WBC 12.6 H RBC 2.31 L Hgb 7.7 L Hct 23.2 L MCV 100.4 H MCH 33.5 MCHC 33.4 RDW 21.4 H Plt Count 241 MPV 7.5 Absolute Neuts (auto) 8.1 H Neutrophils % 64.4 Lymphocytes % 15.3 D Monocytes % 13.1 H Eosinophils % 6.3 H Basophils % 0.9 Nucleated RBC % 5 H Sodium 138 Potassium 3.6 Chloride 109 H Carbon Dioxide 18 L Anion Gap 11 BUN 54.8 H Creatinine 6.0 H Est GFR (CKD-EPI)AfAm 9.80 Est GFR (CKD-EPI)NonAf 8.46 Random Glucose 93 Uric Acid 11.1 H Calcium 10.1 Total Bilirubin 0.9 AST 42 H ALT 50 Alkaline Phosphatase 60 LD Total 235 Total Protein 9.6 H Albumin 3.4 Active Medications Generic Name Dose Route Start Last Admin Trade Name Freq PRN Reason Stop Dose Admin Amlodipine Besylate 10 mg 03/28/20 10:00 03/31/20 09:41 Norvasc - PO 10 mg DAILY BRODIE Administration Atorvastatin Calcium 10 mg 03/27/20 22:00 03/31/20 21:25 Lipitor - PO 10 mg HS BRODIE Administration Calcitonin 240 unit 04/01/20 10:00 Miacalcin Injection - IM DAILY BRODIE Hydralazine HCl 25 mg 03/27/20 22:00 04/01/20 05:32 Apresoline - PO 25 mg TID BRODIE Administration Sodium Chloride 1,000 mls @ 75 mls/hr 03/28/20 13:45 03/31/20 22:30 1/2 Normal Saline IV 75 mls/hr ASDIR BRODIE Administration Labetalol HCl 400 mg 03/27/20 22:00 03/31/20 21:27 Normodyne - PO 400 mg BID BRODIE Administration ASSESSMENT/PLAN: Patient is a 74 year old male with history of chronic kidney disease (baseline Cr approx. 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 Owen) regarding corsening azotemia, hypercalcemia, hyperphosphatemia. #JAY on CKD -BUN/Cr has not changed significantly with Rx - continue hydration -Renal, bladder US reveals bilateral echogenicity of the kidneys concerning for chronic disease. 0.5cm right sided non-obstructing stone noted. -gave one dose of home Lasix dose for Ca reduction -Continue hydration IV 0.45% normal saline at 75mL/ hour -Nephrology recommendations (Dr. Blount) appreciated. - confusion could be two-fold 2/2 hypercalcemia vs uremic dysunction due to CKD - uric acid as per heme onc recs found to be elevated 11.6 , likely in setting of renal insufficiency wand rapid cell turnover, will start allopurinol 100mg daily. Likely once pt starts Rx the uric acid shall get much higher as the chemo lyses more cells. #Hypercalcemia likely 2/2 Multiple myeloma as part of the CRAB diagnostic criteria - Will give dose of calcitonin today as their was acute rise in Ca - mentation was stable today, slightly reduced from prior - dose of PO bicarb given - Consider PET-CT or Whole body low dose CT scan (or MRI) for better detection of lytic lesions. - no indication for dialysis at this time, will not start bisphosphonates as pt has JAY and no indication for steroids at this time as Ca is stable. #Macrocytic anemia -In setting of hypercalcemia, hyperphosphatemia, kidney injury concerning for multiple myeloma. -Follow up bone marrow biopsy results. -Bone scan 11/2019 w/o lytic lesions, or fractures -B12, Folic acid within normal limits -Hematology, oncology consult appreciated. #Lymphocytosis -Predominance of eosinophils, monocytes (noted similarly on prior CBC). However currently afebrile. Will monitor off antibiotics -Suspect this chronic finding is secondary to likely multiple myeloma -Urine culture negative for growth -Hematology recommendations appreciated #Htn -Continue home Labetalol, Hydralazine, Amlodipine FEN -IV 0.45% normal saline at 75mL/ hour -Follow BMP, Phosphate -Regular diet Prophylaxis -Heparin 5000units subq TID Disposition -Continue care in medical surgical floor. Visit type - Emergency Visit Emergency Visit: Yes ED Registration Date: 03/27/20 Care time: The patient presented to the Emergency Department on the above date and was hospitalized for further evaluation of their emergent condition. - New Patient This patient is new to me today: No - Critical Care Critical Care patient: No - Discharge Referral Referred to [facility] No ATTENDING PHYSICIAN STATEMENT I saw and evaluated the patient. I reviewed the resident's note and discussed the case with the resident. I agree with the resident's findings and plan as documented. SUBJECTIVE: OBJECTIVE: ASSESSMENT AND PLAN:
[2020-04-01] MEDS ORDERED: PT OWN MED DRAWER 7, Y5N ONE (09:42)
[2020-04-01] MEDS: amLODIPine BESYLATE 10 MG TABLET (FP) PO SCH (09:55)
[2020-04-01] MEDS: LABETALOL HCL 200 MG TABLET (FP) PO SCH ×2 (09:55→21:42)
[2020-04-01] MEDS: SODIUM CHLORIDE 0.45% 1,000 ML IV SCH ×2 (11:10→13:46)
[2020-04-01] MEDS: CALCITONIN - SALMON SYNTHETIC 400 UNIT/2 ML VIAL IM SCH (11:18)
[2020-04-01 11:54] LABS: ANISOCYTOSIS 2+; MACROCYTOSIS 1+; PLATELET ESTIMATE NORMAL
[2020-04-01] MEDS ORDERED: ALLOPURINOL 100 MG TABLET (FP) PO SCH (13:00)
--- NOTE | 2020-04-01 13:01 | PN ---
Teaching Attending Note Name of Resident: Javier Gates ATTENDING PHYSICIAN STATEMENT I saw and evaluated the patient. I reviewed the resident's note and discussed the case with the resident. I agree with the resident's findings and plan as documented. SUBJECTIVE: Seen and examined at bedside. No complaints at this time. Uric acid noted to be 11. Discussed with nephrology and will start allopurinol 100 mg daily. Still awaiting results of bone marrow biopsy OBJECTIVE: Last Vital Signs Temp Pulse Resp BP Pulse Ox 97.8 F 67 19 127/66 94 L 04/01/20 10:00 04/01/20 10:00 04/01/20 10:04/01/20 10:00 04/01/20 09:00 PE: Per resident note Labs/Imaging: reviewed ASSESSMENT AND PLAN: ASSESSMENT/PLAN: Patient is a 74 year old male with history of chronic kidney disease (baseline Cr approx. 3) hypertension, currently undergoing outpatient workup for multiple myeloma, hyperlipidemia presents at behest of his licensed practical nurse (Dr. Owen) regarding corsening azotemia, hypercalcemia, hyperphosphatemia. #JAY, hypercalcemia, Macrocytic anemia: Undergoing workup for multiple myeloma -has confirmed M spike. Bone marrow biopsy obtained: pending results -Renal, Heme-onc on board: appreciate recs -IV hydration -Consider PET-CT or Whole body low dose CT scan (or MRI) for better detection of lytic lesions. -calcitonin #hyperuricemia Start allopurinol 100 mg daily #JAY on CKD in setting of likely multiple myeloma -Renal, bladder US reveals bilateral echogenicity of the kidneys concerningi for chronic disease. 0.5cmright sided non-obstructing stone noted. -Hold lasix -IV hydration -nephro on board: appreciate recs #Macrocytic anemia with lymphocytosis -b12/folate wnl -has elevated monocytes and eosinophils -f/u bone marrow biopsy #HTN -Continue home Labetalol, Hydralazine, Amlodipine
[2020-04-01] MEDS: ALLOPURINOL 100 MG TABLET (FP) PO SCH (17:43)
--- NOTE | 2020-04-01 17:56 | PN.HO ---
Progress Note (short form) - Note Progress Note: Patient seen and examined Voices no complaints Last Vital Signs Temp Pulse Resp BP Pulse Ox 97.8 F 65 20 128/66 94 L 04/01/20 13:59 04/01/20 13:59 04/01/20 13:59 04/01/20 13:59 04/01/20 09:00 AFVSS Cor: RSR, No murmurs, No gallops Lungs: Clear to P&A Abd: Soft, Normal bowel sounds, No organomegaly Ext:No significant edema Labs/Meds reviewed A/P 74 y/o patient with HTN/HLD --- JAY/anemia, concern for myeloma On /2 NS at 75ml/hr. -- with gradually improving renal function Check LDH/uric acid await bone marrow bx check SFLCA Discussed concerns for myeloma. need for therapy.
--- NOTE | 2020-04-01 18:39 | PN ---
Progress Note, Physician History of Present Illness: Pt seen and examined at bedside. He is awake and alert .He denies shortness of breath. - Current Medication List Current Medications: Active Medications Allopurinol (Zyloprim -) 150 mg PO DAILY [facility] Last Admin: 04/01/20 17:43 Dose: 150 mg Documented by: Amlodipine Besylate (Norvasc -) 10 mg PO DAILY [facility] Last Admin: 04/01/20 09:55 Dose: 10 mg Documented by: Atorvastatin Calcium (Lipitor -) 10 mg PO HS [facility] Last Admin: 03/31/20 21:25 Dose: 10 mg Documented by: Calcitonin (Miacalcin Injection -) 240 unit IM DAILY [facility] Last Admin: 04/01/20 11:18 Dose: 240 unit Documented by: Hydralazine HCl (Apresoline -) 25 mg PO TID [facility] Last Admin: 04/01/20 13:50 Dose: 25 mg Documented by: Sodium Chloride (1/2 Normal Saline) 1,000 mls @ 75 mls/hr IV ASDIR [facility] Last Admin: 04/01/20 13:46 Dose: Not Given Documented by: Labetalol HCl (Normodyne -) 400 mg PO BID [facility] Last Admin: 04/01/20 09:55 Dose: 400 mg Documented by: - Objective Vital Signs: Vital Signs Temperature 97.6 F 04/01/20 18:04 Pulse Rate 72 04/01/20 18:04 Respiratory Rate 20 04/01/20 18:04 Blood Pressure 117/75 04/01/20 18:04 O2 Sat by Pulse Oximetry (%) 94 L 04/01/20 09:00 Constitutional: Yes: Calm Eyes: Yes: Conjunctiva Clear HENT: Yes: Atraumatic Cardiovascular: Yes: S1, S2 Respiratory: Yes: CTA Bilaterally Gastrointestinal: Yes: Soft Genitourinary: Yes: WNL Musculoskeletal: Yes: WNL Extremities: Yes: WNL Edema: Yes Edema: LLE: Trace, RLE: Trace Neurological: Yes: Oriented Psychiatric: Yes: Oriented Labs: CBC, BMP 04/01/20 06:50 04/01/20 06:50 INR, PTT INR 1.12 (0.83-1.09) H 03/28/20 07:00 Problem List - Problems (1) [id number] kidney injury Code(s): N17.9 - ACUTE KIDNEY FAILURE, UNSPECIFIED; N18.9 - CHRONIC KIDNEY DISEASE, UNSPECIFIED Qualifiers: Chronic kidney disease stage: stage 3 (moderate) Assessment/Plan Current Medications Generic Name Dose Route Start Last Admin Trade Name Anette PRN Reason Stop Dose Admin Allopurinol 150 mg 04/01/20 17:30 04/01/20 17:43 Zyloprim - PO 150 mg DAILY BRODIE Administration Amlodipine Besylate 10 mg 03/28/20 10:00 04/01/20 09:55 Norvasc - PO 10 mg DAILY BRODIE Administration Atorvastatin Calcium 10 mg 03/27/20 22:00 03/31/20 21:25 Lipitor - PO 10 mg HS BRODIE Administration Calcitonin 240 unit 04/01/20 10:00 04/01/20 11:18 Miacalcin Injection - IM 240 unit DAILY BRODIE Administration Hydralazine HCl 25 mg 03/27/20 22:00 04/01/20 13:50 Apresoline - PO 25 mg TID BRODIE Administration Sodium Chloride 1,000 mls @ 75 mls/hr 03/28/20 13:45 04/01/20 13:46 1/2 Normal Saline IV Not Given ASDIR BRODIE Labetalol HCl 400 mg 03/27/20 22:00 04/01/20 09:55 Normodyne - PO 400 mg BID BRODIE Administration Impression 1. CKD 2. HTN 3. JAY 4. HLD 5. protienuria 6. m-spike - r/o myeloma 7. hypercalcemia Plan - renal function worsening - cont fluids for now - start allopurinol 100 mg - repeat labs in am - discussed with medical team - follow bone marrow
[2020-04-01] MEDS: ATORVASTATIN CA 10 MG TABLET (FP) PO SCH (21:42)
[2020-04-02] MEDS: hydrALAZINE HCL 25 MG TABLET (FP) PO SCH ×3 (06:06→21:28)
[2020-04-02 07:18] LABS: BASO % 1.2 % (0-2.0); EOS % 7.2 % (0-4.5); HEMOGLOBIN 7.3 GM/dL (11.7-16.9); LYMPH % 14.4 % (8-40); MCH 32.7 pg (25.7-33.7); MCHC 32.9 g/dl (32.0-35.9); MEAN CELL VOLUME 99.3 fl (80-96); MEAN PLT VOLUME 7.4 fl (7.5-11.1); MONO % 12.3 % (3.8-10.2); NEUT % 64.9 % (42.8-82.8); PLATELET COUNT 231 K/MM3 (134-434); RBC 2.22 M/mm3 (4.00-5.60); RDW 21.4 % (11.9-15.9)
[2020-04-02 07:23] LABS: ALBUMIN 3.2 g/dl (3.4-5.0); BILIRUBIN,TOTAL 0.4 mg/dL (0.2-1); BLOOD UREA NITROGEN 55.8 mg/dL (7-18); CREATININE 5.9 mg/dL (0.55-1.3); POTASSIUM 3.3 mmol/L (3.5-5.1); TOT PROT 8.8 g/dl (6.4-8.2)
[2020-04-02] MEDS ORDERED: PT OWN MED DRAWER 7, Y5N ONE (08:36)
[2020-04-02] MEDS: ALLOPURINOL 100 MG TABLET (FP) PO SCH (09:12)
[2020-04-02] MEDS: amLODIPine BESYLATE 10 MG TABLET (FP) PO SCH (09:12)
[2020-04-02] MEDS: LABETALOL HCL 200 MG TABLET (FP) PO SCH ×2 (09:12→21:28)
[2020-04-02 09:14] LABS: ANISOCYTOSIS 1+; MACROCYTOSIS 1+; PLATELET ESTIMATE NORMAL
[2020-04-02] MEDS: CALCITONIN - SALMON SYNTHETIC 400 UNIT/2 ML VIAL IM SCH (09:17)
[2020-04-02 09:22] LABS: WHITE BLOOD COUNT 13.2 K/mm3 (4.0-10.0)
[2020-04-02] MEDS ORDERED: POTASSIUM CHLORIDE ORAL LIQUID 20 MEQ/15 ML PO ONE (11:28)
--- NOTE | 2020-04-02 13:51 | PN ---
Teaching Attending Note Name of Resident: August Contreras ATTENDING PHYSICIAN STATEMENT I saw and evaluated the patient. I reviewed the resident's note and discussed the case with the resident. I agree with the resident's findings and plan as documented. SUBJECTIVE: Seen and examined at bedside. No complaints at this time. Pending results of b one marrow biopsy. OBJECTIVE: Last Vital Signs Temp Pulse Resp BP Pulse Ox 98.4 F 74 20 152/84 95 04/02/20 06:00 04/02/20 06:00 04/02/20 06:00 04/02/20 06:00 04/02/20 09:00 PE: Per resident note Labs/Imaging: reviewed ASSESSMENT AND PLAN: ASSESSMENT/PLAN: Patient is a 74 year old male with history of chronic kidney disease (baseline Cr approx. 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 Owen) regarding corsening azotemia, hypercalcemia, hyperphosphatemia. #JAY, hypercalcemia, Macrocytic anemia: Undergoing workup for multiple myeloma -pending bone marrow biopsy results -has confirmed M spike. Bone marrow biopsy obtained: pending results -Renal, Heme-onc on board: appreciate recs -IV hydration -calcitonin #hyperuricemia -cont allopurinol 100 mg daily #JAY on CKD in setting of likely multiple myeloma -Renal, bladder US reveals bilateral echogenicity of the kidneys concerningi for chronic disease. 0.5cmright sided non-obstructing stone noted. -Hold lasix -IV hydration -nephro on board: appreciate recs #Macrocytic anemia with lymphocytosis -b12/folate wnl -has elevated monocytes and eosinophils -f/u bone marrow biopsy #HTN -Continue home Labetalol, Hydralazine, Amlodipine
[2020-04-02] MEDS: SODIUM CHLORIDE 0.45% 1,000 ML IV SCH (14:05)
--- NOTE | 2020-04-02 14:12 | PN ---
Physical Exam: SUBJECTIVE: Patient seen and examined at bedside. No acute overnight events. Patient denies any complaints. OBJECTIVE: Vital Signs Period Temp Pulse Resp BP Sys/Judd Pulse Ox Last 24 Hr 97.6 F-98.4 F 62-74 20-20 117-152/71-84 94-95 GENERAL: The patient is awake, alert, and fully oriented, in no acute distress. HEAD: Normocephalic, atraumatic. EYES: PERRL, extraocular movements intact, sclera anicteric, conjunctiva clear. ENT: Oropharynx clear, without erythema or exudates. Moist mucous membranes. NECK: Trachea midline, full range of motion. Supple without lymphadenopathy. LUNGS: Breath sounds equal, clear to auscultation bilaterally. No wheezes, no crackles. No accessory muscle use. HEART: Regular rate and rhythm. S1, S2 without murmur, rub or gallop. ABDOMEN: Soft, nondistended, nontender to light and deep palpation x4 quadrants. No rebound tenderness, no guarding. Normoactive bowel sounds x4 quadrants. No hepatosplenomegaly, no masses appreciated. EXTREMITIES: 2+ radial, dorsalis pedis pulses bilaterally. Warm, well-perfused. No lower extremity edema bilaterally. NEUROLOGICAL: Cranial nerves II through XII grossly intact. Normal speech. No gross focal deficits. PSYCH: Normal mood, normal affect upon my encounter. SKIN: Warm, dry. Laboratory Results - last 24 hr 04/02/20 04/02/20 06:20 06:20 WBC 13.2 H RBC 2.22 L Hgb 7.3 L Hct 22.0 L MCV 99.3 H MCH 32.7 MCHC 32.9 RDW 21.4 H Plt Count 231 MPV 7.4 L Absolute Neuts (auto) 7.7 Neutrophils % 64.9 Neutrophils % (Manual) 65.6 Band Neutrophils % 1.1 Lymphocytes % 14.4 Lymphocytes % (Manual) 8.3 D Monocytes % 12.3 H Monocytes % (Manual) 8 D Eosinophils % 7.2 H Eosinophils % (Manual) 7.3 H Basophils % 1.2 Basophils % (Manual) 2.1 H D Myelocytes % (Man) 2 D Promyelocytes % (Man) 0 Blast Cells % (Manual) 0 Nucleated RBC % 10 H Metamyelocytes 5 H D Hypochromia 0 Platelet Estimate Normal Polychromasia 0 Poikilocytosis 0 Anisocytosis 1+ Macrocytosis 1+ Sodium 141 Potassium 3.3 L Chloride 112 H Carbon Dioxide 15 L Anion Gap 15 BUN 55.8 H Creatinine 5.9 H Est GFR (CKD-EPI)AfAm 10.01 Est GFR (CKD-EPI)NonAf 8.63 Random Glucose 92 Calcium 10.0 Total Bilirubin 0.4 AST 35 ALT 46 Alkaline Phosphatase 57 Total Protein 8.8 H Albumin 3.2 L Active Medications Generic Name Dose Route Start Last Admin Trade Name Anette PRN Reason Stop Dose Admin Allopurinol 150 mg 04/01/20 17:30 04/02/20 09:12 Zyloprim - PO 150 mg DAILY BRODIE Administration Amlodipine Besylate 10 mg 03/28/20 10:00 04/02/20 09:12 Norvasc - PO 10 mg DAILY BRODIE Administration Atorvastatin Calcium 10 mg 03/27/20 22:00 04/01/20 21:42 Lipitor - PO 10 mg HS BRODIE Administration Calcitonin 240 unit 04/01/20 10:00 04/02/20 09:17 Miacalcin Injection - IM 240 unit DAILY BRODIE Administration Hydralazine HCl 25 mg 03/27/20 22:00 04/02/20 14:04 Apresoline - PO 25 mg TID BRODIE Administration Sodium Chloride 1,000 mls @ 75 mls/hr 03/28/20 13:45 04/02/20 14:05 1/2 Normal Saline IV 75 mls/hr ASDIR BRODIE Administration Labetalol HCl 400 mg 03/27/20 22:00 04/02/20 09:12 Normodyne - PO 400 mg BID BRODIE Administration ASSESSMENT/PLAN: Patient is a 74 year old male with history of chronic kidney disease (baseline Cr approx. 3) hypertension, hyperlipidemia presents at behest of his clinical athletic instructor (Dr. Owen) regarding corsening azotemia, hypercalcemia, hyperphosphatemia. Acute kidney injury on CKD -BUN 55, Cr 5.9 -Renal, bladder US reveals bilateral echogenicity of the kidneys concerning for chronic disease. 0.5cm right sided non-obstructing stone noted. -Holding home Lasix -Continue hydration IV 0.45% normal saline at 75mL/ hour -Nephrology recommendations (Dr. Blount) appreciated. Macrocytic anemia -In setting of hypercalcemia, hyperphosphatemia, kidney injury concerning for multiple myeloma. -Follow up bone marrow biopsy results. -Bone scan from 11/2019 reveals no lytic lesions, or fractures -B12, Folic acid within normal limits -Hematology, oncology consult appreciated. Hyperuricemia -Continue Allopurinol 150mg PO daily Hypokalemia -Repleted. Follow BMP Lymphocytosis -Predominance of eosinophils, monocytes (noted similarly on prior CBC). However currently afebrile. Will monitor off antibiotics -Suspect this chronic finding is secondary to likely multiple myeloma -Urine culture negative for growth -Hematology recommendations appreciated History of hypertension -Continue home Labetalol, Hydralazine, Amlodipine FEN -IV 0.45% normal saline at 75mL/ hour -Follow BMP, Phosphate -Regular diet Prophylaxis -Heparin 5000units subq TID Disposition -Continue care in medical surgical floor. Visit type - Emergency Visit Emergency Visit: Yes ED Registration Date: 03/27/20 Care time: The patient presented to the Emergency Department on the above date and was hospitalized for further evaluation of their emergent condition. - New Patient This patient is new to me today: No - Critical Care Critical Care patient: No - Discharge Referral Referred to [facility] No ATTENDING PHYSICIAN STATEMENT I saw and evaluated the patient. I reviewed the resident's note and discussed the case with the resident. I agree with the resident's findings and plan as documented. SUBJECTIVE: OBJECTIVE: ASSESSMENT AND PLAN:
--- NOTE | 2020-04-02 17:34 | PN.HO ---
Progress Note (short form) - Note Progress Note: Patient seen and examined Voices no complaints Mentioned mild SOB on ambulation or when walking but not now. Encourage to call his nurse and doctors when this happens Last Vital Signs Temp Pulse Resp BP Pulse Ox 98.1 F 62 20 134/71 95 04/02/20 14:04 04/02/20 14:04 04/02/20 14:04 04/02/20 14:04 04/02/20 09:00 AFVSS Cor: RSR, No murmurs, No gallops Lungs: Clear to P&A Abd: Soft, Normal bowel sounds, No organomegaly Ext:No significant edema Labs/Meds reviewed 04/02/20 06:20 04/02/20 06:20 Current Medications Generic Name Dose Route Start Last Admin Trade Name Anette PRN Reason Stop Dose Admin Allopurinol 150 mg 04/01/20 17:30 04/02/20 09:12 Zyloprim - PO 150 mg DAILY BRODIE Administration Amlodipine Besylate 10 mg 03/28/20 10:00 04/02/20 09:12 Norvasc - PO 10 mg DAILY BRODIE Administration Atorvastatin Calcium 10 mg 03/27/20 22:00 04/01/20 21:42 Lipitor - PO 10 mg HS BRODIE Administration Calcitonin 240 unit 04/01/20 10:00 04/02/20 09:17 Miacalcin Injection - IM 240 unit DAILY BRODIE Administration Hydralazine HCl 25 mg 03/27/20 22:00 04/02/20 14:04 Apresoline - PO 25 mg TID BRODIE Administration Sodium Chloride 1,000 mls @ 75 mls/hr 03/28/20 13:45 04/02/20 14:05 1/2 Normal Saline IV 75 mls/hr ASDIR BRODIE Administration Labetalol HCl 400 mg 03/27/20 22:00 04/02/20 09:12 Normodyne - PO 400 mg BID BRODIE Administration A/P 74 y/o patient with HTN/HLD --- JAY/anemia, concern for myeloma On 12 NS at 75ml/hr. -- with gradually improving renal function Check LDH/uric acid--> Started on Allopurinol await bone marrow bx check SFLCA Discussed concerns for myeloma. need for therapy.
--- NOTE | 2020-04-02 17:55 | PN ---
Progress Note, Physician History of Present Illness: Pt seen and examined a bedside. He is awake and alert. He denies shortness of breath. - Current Medication List Current Medications: Active Medications Allopurinol (Zyloprim -) 150 mg PO DAILY [facility] Last Admin: 04/02/20 09:12 Dose: 150 mg Documented by: Amlodipine Besylate (Norvasc -) 10 mg PO DAILY [facility] Last Admin: 04/02/20 09:12 Dose: 10 mg Documented by: Atorvastatin Calcium (Lipitor -) 10 mg PO HS [facility] Last Admin: 04/01/20 21:42 Dose: 10 mg Documented by: Calcitonin (Miacalcin Injection -) 240 unit IM DAILY [facility] Last Admin: 04/02/20 09:17 Dose: 240 unit Documented by: Hydralazine HCl (Apresoline -) 25 mg PO TID [facility] Last Admin: 04/02/20 14:04 Dose: 25 mg Documented by: Sodium Chloride (1/2 Normal Saline) 1,000 mls @ 75 mls/hr IV ASDIR [facility] Last Admin: 04/02/20 14:05 Dose: 75 mls/hr Documented by: Labetalol HCl (Normodyne -) 400 mg PO BID [facility] Last Admin: 04/02/20 09:12 Dose: 400 mg Documented by: Sodium Bicarbonate (Sodium Bicarbonate -) 650 mg PO BID [facility] - Objective Vital Signs: Vital Signs Temperature 98.1 F 04/02/20 14:04 Pulse Rate 62 04/02/20 14:04 Respiratory Rate 20 04/02/20 14:04 Blood Pressure 134/71 04/02/20 14:04 O2 Sat by Pulse Oximetry (%) 95 04/02/20 09:00 Constitutional: Yes: Calm Eyes: Yes: Conjunctiva Clear HENT: Yes: Atraumatic Cardiovascular: Yes: S1, S2 Respiratory: Yes: CTA Bilaterally Gastrointestinal: Yes: Soft Genitourinary: Yes: WNL Musculoskeletal: Yes: WNL Edema: No Neurological: Yes: Oriented Psychiatric: Yes: Oriented Labs: CBC, BMP 04/02/20 06:20 04/02/20 06:20 INR, PTT INR 1.12 (0.83-1.09) H 03/28/20 07:00 Problem List - Problems (1) [id number] kidney injury Code(s): N17.9 - ACUTE KIDNEY FAILURE, UNSPECIFIED; N18.9 - CHRONIC KIDNEY DISEASE, UNSPECIFIED Qualifiers: Chronic kidney disease stage: stage 3 (moderate) Assessment/Plan Current Medications Generic Name Dose Route Start Last Admin Trade Name Anette PRN Reason Stop Dose Admin Allopurinol 150 mg 04/01/20 17:30 04/02/20 09:12 Zyloprim - PO 150 mg DAILY BRODIE Administration Amlodipine Besylate 10 mg 03/28/20 10:00 04/02/20 09:12 Norvasc - PO 10 mg DAILY BR[facility]IE Administration Atorvastatin Calcium 10 mg 03/27/20 22:00 04/01/20 21:42 Lipitor - PO 10 mg HS BRODIE Administration Calcitonin 240 unit 04/01/20 10:00 04/02/20 09:17 Miacalcin Injection - IM 240 unit DAILY [facility]IE Administration Hydralazine HCl 25 mg 03/27/20 22:00 04/02/20 14:04 Apresoline - PO 25 mg TID BRODIE Administration Sodium Chloride 1,000 mls @ 75 mls/hr 03/28/20 13:45 04/02/20 14:05 1/2 Normal Saline IV 75 mls/hr ASDIR BRODIE Administration Labetalol HCl 400 mg 03/27/20 22:00 04/02/20 09:12 Normodyne - PO 400 mg BID BRODIE Administration Sodium Bicarbonate 650 mg 04/02/20 22:00 Sodium Bicarbonate - PO BID BRODIE Impression 1. CKD 2. HTN 3. JAY 4. HLD 5. protienuria 6. m-spike - r/o myeloma 7. hypercalcemia Plan - replace potassium - add bicarb - cont fluids - repeat labs in am - heme follow up appreciated - follow biopsy
[2020-04-02] MEDS: ATORVASTATIN CA 10 MG TABLET (FP) PO SCH (21:28)
[2020-04-02] MEDS ORDERED: SODIUM BICARBONATE 650 MG TABLET PO SCH (22:00)
[2020-04-03] MEDS: SODIUM CHLORIDE 0.45% 1,000 ML IV SCH ×2 (04:33→21:49)
[2020-04-03] MEDS: hydrALAZINE HCL 25 MG TABLET (FP) PO SCH ×3 (05:38→21:50)
[2020-04-03 07:43] LABS: HEMATOCRIT 22.1 % (35.4-49); HEMOGLOBIN 7.2 GM/dL (11.7-16.9); MCHC 32.7 g/dl (32.0-35.9); MEAN CELL VOLUME 100.9 fl (80-96); MEAN PLT VOLUME 7.5 fl (7.5-11.1); PLATELET COUNT 227 K/MM3 (134-434); RBC 2.19 M/mm3 (4.00-5.60); RDW 21.6 % (11.9-15.9); WHITE BLOOD COUNT 12.6 K/mm3 (4.0-10.0)
[2020-04-03 08:18] LABS: ALBUMIN 3.2 g/dl (3.4-5.0); BILIRUBIN,TOTAL 0.4 mg/dL (0.2-1); BLOOD UREA NITROGEN 54.7 mg/dL (7-18); CALCIUM 9.9 mg/dL (8.5-10.1); CREATININE 5.5 mg/dL (0.55-1.3); MAGNESIUM 1.9 mg/dL (1.8-2.4); PHOSPHOROUS 3.9 mg/dL (2.5-4.9); POTASSIUM 3.7 mmol/L (3.5-5.1); TOT PROT 8.9 g/dl (6.4-8.2)
--- NOTE | 2020-04-03 08:34 | PN ---
Teaching Attending Note Name of Resident: Luis Miguel Reyna ATTENDING PHYSICIAN STATEMENT I saw and evaluated the patient. I reviewed the resident's note and discussed the case with the resident. I agree with the resident's findings and plan as documented. SUBJECTIVE: Seen and examined at bedside. Patient stable, creatinine downtrending, though CO2 decreasing. Still pending results of bone marrow biopsy OBJECTIVE: Last Vital Signs Temp Pulse Resp BP Pulse Ox 97.7 F 67 20 132/68 94 L 04/03/20 06:02 04/03/20 06:02 04/03/20 06:02 04/03/20 06:02 04/02/20 21:00 PE: Per resident note Labs/Imaging: reviewed ASSESSMENT AND PLAN: ASSESSMENT/PLAN: Patient is a 74 year old male with history of chronic kidney disease (baseline Cr approx. 3) hypertension, currently undergoing outpatient workup for multiple myeloma, hyperlipidemia presents at behest of his event promoter (Dr. Owen) regarding corsening azotemia, hypercalcemia, hyperphosphatemia. #JAY, hypercalcemia, Macrocytic anemia: Undergoing workup for multiple myeloma -pending bone marrow biopsy results. If bone marrow biopsy is negative patient will need to undergo renal biopsy -has confirmed M spike. Bone marrow biopsy obtained: pending results -Renal, Heme-onc on board: appreciate recs -IV hydration -calcitonin #hyperuricemia -cont allopurinol 100 mg daily #JAY on CKD: improving in setting of likely multiple myeloma -Renal, bladder US reveals bilateral echogenicity of the kidneys concerningi for chronic disease. 0.5cmright sided non-obstructing stone noted. -Hold lasix -IV hydration -nephro on board: appreciate recs #Macrocytic anemia with lymphocytosis -b12/folate wnl -has elevated monocytes and eosinophils -f/u bone marrow biopsy #HTN -Continue home Labetalol, Hydralazine, Amlodipine
[2020-04-03] MEDS ORDERED: SODIUM BICARBONATE 8.4% 50 MEQ/50 ML VIAL IV ONE (09:00)
[2020-04-03] MEDS ORDERED: POTASSIUM CHLORIDE ORAL LIQUID 20 MEQ/15 ML PO ONE (09:00)
[2020-04-03] MEDS: LABETALOL HCL 200 MG TABLET (FP) PO SCH ×2 (10:57→21:50)
[2020-04-03] MEDS: amLODIPine BESYLATE 10 MG TABLET (FP) PO SCH (10:57)
[2020-04-03] MEDS: ALLOPURINOL 100 MG TABLET (FP) PO SCH (10:57)
--- NOTE | 2020-04-03 12:13 | PN ---
Physical Exam: SUBJECTIVE: Patient seen and examined at bedside. He denies acute complaints. OBJECTIVE: Vital Signs Period Temp Pulse Resp BP Sys/Judd Pulse Ox Last 24 Hr 97.7 F-98.1 F 61-67 20-20 107-136/55-71 94 GENERAL: The patient is awake, alert, and fully oriented, in no acute distress. HEAD: Normocephalic, atraumatic. EYES: PERRL, extraocular movements intact, sclera anicteric, conjunctiva clear. ENT: Oropharynx clear, without erythema or exudates. Moist mucous membranes. NECK: Trachea midline, full range of motion. Supple without lymphadenopathy. LUNGS: Breath sounds equal, clear to auscultation bilaterally. No wheezes, no crackles. No accessory muscle use. HEART: Regular rate and rhythm. S1, S2 without murmur, rub or gallop. ABDOMEN: Soft, nondistended, nontender to light and deep palpation x4 quadrants. No rebound tenderness, no guarding. Normoactive bowel sounds x4 quadrants. No hepatosplenomegaly, no masses appreciated. EXTREMITIES: 2+ radial, dorsalis pedis pulses bilaterally. Warm, well-perfused. No lower extremity edema bilaterally. NEUROLOGICAL: Cranial nerves II through XII grossly intact. Normal speech. No gross focal deficits. PSYCH: Normal mood, normal affect upon my encounter. SKIN: Warm, dry. Laboratory Results - last 24 hr 04/03/20 04/03/20 06:40 06:40 WBC 12.6 H RBC 2.19 L Hgb 7.2 L Hct 22.1 L MCV 100.9 H MCH 33.0 MCHC 32.7 RDW 21.6 H Plt Count 227 MPV 7.5 Sodium 140 Potassium 3.7 Chloride 113 H Carbon Dioxide 14 L Anion Gap 13 BUN 54.7 H Creatinine 5.5 H Est GFR (CKD-EPI)AfAm 10.89 Est GFR (CKD-EPI)NonAf 9.40 Random Glucose 95 Calcium 9.9 Phosphorus 3.9 Magnesium 1.9 Total Bilirubin 0.4 AST 31 ALT 43 Alkaline Phosphatase 58 Total Protein 8.9 H Albumin 3.2 L Active Medications Generic Name Dose Route Start Last Admin Trade Name Freq PRN Reason Stop Dose Admin Allopurinol 150 mg 04/01/20 17:30 04/03/20 10:57 Zyloprim - PO 150 mg DAILY BRODIE Administration Amlodipine Besylate 10 mg 03/28/20 10:00 04/03/20 10:57 Norvasc - PO 10 mg DAILY [facility]IE Administration Atorvastatin Calcium 10 mg 03/27/20 22:00 04/02/20 21:28 Lipitor - PO 10 mg HS BRODIE Administration Calcitonin 240 unit 04/01/20 10:00 04/02/20 09:17 Miacalcin Injection - IM 240 unit DAILY [facility] Administration Hydralazine HCl 25 mg 03/27/20 22:00 04/03/20 05:38 Apresoline - PO 25 mg TID BRODIE Administration Sodium Chloride 1,000 mls @ 75 mls/hr 03/28/20 13:45 04/03/20 04:33 1/2 Normal Saline IV 75 mls/hr ASDIR BRODIE Administration Labetalol HCl 400 mg 03/27/20 22:00 04/03/20 10:57 Normodyne - PO 400 mg BID BRODIE Administration Sodium Bicarbonate 650 mg 04/03/20 14:00 Sodium Bicarbonate - PO TID BRODIE ASSESSMENT/PLAN: Patient is a 74 year old male with history of chronic kidney disease (baseline Cr approx. 3) hypertension, hyperlipidemia presents at behest of his protocol officer (Dr. Owen) regarding corsening azotemia, hypercalcemia, hyperphosphatemia. Acute kidney injury on CKD -BUN 55, Cr 5.9 -Renal, bladder US reveals bilateral echogenicity of the kidneys concerning for chronic disease. 0.5cm right sided non-obstructing stone noted. -Holding home Lasix -Continue hydration IV 0.45% normal saline at 75mL/ hour -Nephrology recommendations (Dr. Blount) appreciated. Macrocytic anemia -In setting of hypercalcemia, hyperphosphatemia, kidney injury concerning for multiple myeloma. -Follow up bone marrow biopsy results. -Calcitonin for hypercalcemia -Bone scan from 11/2019 reveals no lytic lesions, or fractures -B12, Folic acid within normal limits -Hematology, oncology consult appreciated. Hyperuricemia -Continue Allopurinol 150mg PO daily Lymphocytosis -Predominance of eosinophils, monocytes (noted similarly on prior CBC). However currently afebrile. Will monitor off antibiotics -Suspect this chronic finding is secondary to likely multiple myeloma -Urine culture negative for growth. Follow blood cultures. -Hematology recommendations appreciated History of hypertension -Continue home Labetalol, Hydralazine, Amlodipine FEN -IV 0.45% normal saline at 75mL/ hour -Follow BMP, Phosphate -Regular diet Prophylaxis -Heparin 5000units subq TID Disposition -Continue care in medical surgical floor. Visit type - Emergency Visit Emergency Visit: Yes ED Registration Date: 03/27/20 Care time: The patient presented to the Emergency Department on the above date and was hospitalized for further evaluation of their emergent condition. - New Patient This patient is new to me today: No - Critical Care Critical Care patient: No - Discharge Referral Referred to [facility] No ATTENDING PHYSICIAN STATEMENT I saw and evaluated the patient. I reviewed the resident's note and discussed the case with the resident. I agree with the resident's findings and plan as documented. SUBJECTIVE: OBJECTIVE: ASSESSMENT AND PLAN:
[2020-04-03] MEDS: SODIUM BICARBONATE 650 MG TABLET PO SCH ×2 (13:19→21:50)
[2020-04-03] MEDS: CALCITONIN - SALMON SYNTHETIC 400 UNIT/2 ML VIAL IM SCH (13:19)
[2020-04-03 13:59] VITALS: BMI 20.1
[2020-04-03 16:07] LABS: IGA IMMUNOGLOBULIN 15 mg/dL (61-437); IGG QN IMMUNOGLOBULIN 3587 mg/dL (603-1613); IGM QN SERUM 7 mg/dL (15-143)
--- NOTE | 2020-04-03 16:36 | PN ---
Progress Note, Physician History of Present Illness: Pt seen and examined at bedside. He is awake and alert. He denies shortness of breath. - Current Medication List Current Medications: Active Medications Allopurinol (Zyloprim -) 150 mg PO DAILY [facility] Last Admin: 04/03/20 10:57 Dose: 150 mg Documented by: Amlodipine Besylate (Norvasc -) 10 mg PO DAILY [facility] Last Admin: 04/03/20 10:57 Dose: 10 mg Documented by: Atorvastatin Calcium (Lipitor -) 10 mg PO HS [facility] Last Admin: 04/02/20 21:28 Dose: 10 mg Documented by: Calcitonin (Miacalcin Injection -) 240 unit IM DAILY [facility] Last Admin: 04/03/20 13:19 Dose: 240 unit Documented by: Hydralazine HCl (Apresoline -) 25 mg PO TID [facility] Last Admin: 04/03/20 13:19 Dose: 25 mg Documented by: Sodium Chloride (1/2 Normal Saline) 1,000 mls @ 75 mls/hr IV ASDIR [facility] Last Admin: 04/03/20 04:33 Dose: 75 mls/hr Documented by: Labetalol HCl (Normodyne -) 400 mg PO BID [facility] Last Admin: 04/03/20 10:57 Dose: 400 mg Documented by: Sodium Bicarbonate (Sodium Bicarbonate -) 650 mg PO TID [facility] Last Admin: 04/03/20 13:19 Dose: 650 mg Documented by: - Objective Vital Signs: Vital Signs Temperature 97.7 F 04/03/20 13:32 Pulse Rate 64 04/03/20 13:32 Respiratory Rate 20 04/03/20 13:32 Blood Pressure 134/65 04/03/20 13:32 O2 Sat by Pulse Oximetry (%) 95 04/03/20 09:00 Constitutional: Yes: Calm Eyes: Yes: Conjunctiva Clear HENT: Yes: Atraumatic Neck: Yes: Supple Cardiovascular: Yes: S1, S2 Respiratory: Yes: CTA Bilaterally Gastrointestinal: Yes: Soft Musculoskeletal: Yes: WNL Edema: No Neurological: Yes: Oriented Psychiatric: Yes: Oriented Labs: CBC, BMP 04/03/20 06:40 04/03/20 06:40 INR, PTT INR 1.12 (0.83-1.09) H 03/28/20 07:00 Problem List - Problems (1) [id number] kidney injury Code(s): N17.9 - ACUTE KIDNEY FAILURE, UNSPECIFIED; N18.9 - CHRONIC KIDNEY DISEASE, UNSPECIFIED Qualifiers: Chronic kidney disease stage: stage 3 (moderate) Assessment/Plan Current Medications Generic Name Dose Route Start Last Admin Trade Name Anette PRN Reason Stop Dose Admin Allopurinol 150 mg 04/01/20 17:30 04/03/20 10:57 Zyloprim - PO 150 mg DAILY [facility]IE Administration Amlodipine Besylate 10 mg 03/28/20 10:00 04/03/20 10:57 Norvasc - PO 10 mg DAILY [facility] Administration Atorvastatin Calcium 10 mg 03/27/20 22:00 04/02/20 21:28 Lipitor - PO 10 mg HS BRODIE Administration Calcitonin 240 unit 04/01/20 10:00 04/03/20 13:19 Miacalcin Injection - IM 240 unit DAILY [facility] Administration Hydralazine HCl 25 mg 03/27/20 22:00 04/03/20 13:19 Apresoline - PO 25 mg TID BRODIE Administration Sodium Chloride 1,000 mls @ 75 mls/hr 03/28/20 13:45 04/03/20 04:33 1/2 Normal Saline IV 75 mls/hr ASDIR BRODIE Administration Labetalol HCl 400 mg 03/27/20 22:00 04/03/20 10:57 Normodyne - PO 400 mg BID BRODIE Administration Sodium Bicarbonate 650 mg 04/03/20 14:00 04/03/20 13:19 Sodium Bicarbonate - PO 650 mg TID BRODIE Administration Impression 1. CKD 2. HTN 3. JAY 4. HLD 5. protienuria 6. m-spike - r/o myeloma 7. hypercalcemia Plan - cont fluids - start bicarb - follow bone marrow biopsy - monitor lytes and renal function - repeat labs in am - heme follow up
[2020-04-03] MEDS: ATORVASTATIN CA 10 MG TABLET (FP) PO SCH (21:50)
--- NOTE | 2020-04-03 22:13 | PN.HO ---
Progress Note (short form) - Note Progress Note: PAtient seen and examined Discussed via spanish interpreter/translator Denies specific complaints Last Vital Signs Temp Pulse Resp BP Pulse Ox 97.6 F 68 20 127/77 95 04/03/20 18:00 04/03/20 18:00 04/03/20 18:00 04/03/20 18:00 04/03/20 09:00 Cor: RSR, No murmurs, No gallops Lungs: Clear to P&A Abd: Soft, Normal bowel sounds, No organomegaly Ext:No significant edema LAbs/Meds reviewed A/P 74 y/o patient with HTN/HLD --- JAY/anemia, concern for myeloma On 10/07 NS at 75ml/hr. -- with gradually improving renal function Preliminary flow c/w myeloma await final pathology check skeletal survey Start dexamethasone 20mg IVPB daily x 4 days with protonix after rechecking uric acid in AM Will add velcade and cytoxan once final path is back Discussed in detail with patient via spanish interpreter/translator and his daughter Cassidy over the phone
[2020-04-04] MEDS ORDERED: diphenhydrAMINE HCL 25 MG CAPSULE (FP) PO ONE (00:01)
[2020-04-04] MEDS: hydrALAZINE HCL 25 MG TABLET (FP) PO SCH ×3 (05:11→21:17)
[2020-04-04] MEDS: SODIUM BICARBONATE 650 MG TABLET PO SCH ×3 (05:11→21:16)
[2020-04-04 08:30] LABS: HEMATOCRIT 20.5 % (35.4-49); MCH 33.1 pg (25.7-33.7); MCHC 32.9 g/dl (32.0-35.9); MEAN CELL VOLUME 100.7 fl (80-96); MEAN PLT VOLUME 7.3 fl (7.5-11.1); PLATELET COUNT 225 K/MM3 (134-434); RBC 2.04 M/mm3 (4.00-5.60); RDW 21.3 % (11.9-15.9); WHITE BLOOD COUNT 12.4 K/mm3 (4.0-10.0)
[2020-04-04 08:38] LABS: HEMOGLOBIN 6.7 GM/dL (11.7-16.9)
[2020-04-04 08:58] LABS: BILIRUBIN,TOTAL 0.3 mg/dL (0.2-1); BLOOD UREA NITROGEN 50.3 mg/dL (7-18); CREATININE 5.3 mg/dL (0.55-1.3); MAGNESIUM 1.8 mg/dL (1.8-2.4); PHOSPHOROUS 3.8 mg/dL (2.5-4.9); POTASSIUM 3.6 mmol/L (3.5-5.1); TOT PROT 8.5 g/dl (6.4-8.2); URIC ACID 7.9 mg/dL (2.6-7.2)
[2020-04-04] MEDS ORDERED: PT OWN MED DRAWER 7, Y5N ONE (11:14)
[2020-04-04] MEDS: CYANOCOBALAMIN 1,000 MCG TABLET (FP) PO SCH (11:33)
[2020-04-04] MEDS: LABETALOL HCL 200 MG TABLET (FP) PO SCH ×2 (11:33→21:16)
--- NOTE | 2020-04-04 11:33 | PN ---
Physical Exam: SUBJECTIVE: Patient seen and examined at bedside. No acute overnight events. This morning Hb decreased to 6.7. Negative bleeding noted. Negative hemoptysis, hematuria, melena, hematochezia. OBJECTIVE: Vital Signs Period Temp Pulse Resp BP Sys/Judd Pulse Ox Last 24 Hr 97.6 F-98.0 F 64-75 20-20 127-151/65-80 96 GENERAL: The patient is awake, alert, and fully oriented, in no acute distress. HEAD: Normocephalic, atraumatic. EYES: PERRL, extraocular movements intact, sclera anicteric, conjunctiva clear. ENT: Oropharynx clear, without erythema or exudates. Moist mucous membranes. NECK: Trachea midline, full range of motion. Supple without lymphadenopathy. LUNGS: Breath sounds equal, clear to auscultation bilaterally. No wheezes, no crackles. No accessory muscle use. HEART: Regular rate and rhythm. S1, S2 without murmur, rub or gallop. ABDOMEN: Soft, nondistended, nontender to light and deep palpation x4 quadrants. No rebound tenderness, no guarding. Normoactive bowel sounds x4 quadrants. No hepatosplenomegaly, no masses appreciated. EXTREMITIES: 2+ radial, dorsalis pedis pulses bilaterally. Warm, well-perfused. No lower extremity edema bilaterally. NEUROLOGICAL: Cranial nerves II through XII grossly intact. Normal speech. No gross focal deficits. PSYCH: Normal mood, normal affect upon my encounter. SKIN: Warm, dry. Laboratory Results - last 24 hr 04/02/20 04/04/20 04/04/20 06:20 07:45 07:45 WBC 12.4 H RBC 2.04 L Hgb 6.7 L* Hct 20.5 L MCV 100.7 H MCH 33.1 MCHC 32.9 RDW 21.3 H Plt Count 225 MPV 7.3 L Sodium 140 Potassium 3.6 Chloride 111 H Carbon Dioxide 15 L Anion Gap 14 BUN 50.3 H Creatinine 5.3 H Est GFR (CKD-EPI)AfAm 11.39 Est GFR (CKD-EPI)NonAf 9.83 Random Glucose 86 Uric Acid 7.9 H Calcium 10.0 Phosphorus 3.8 Magnesium 1.8 Total Bilirubin 0.3 AST 34 ALT 44 Alkaline Phosphatase 61 LD Total 213 Total Protein 8.5 H Albumin 3.0 L IgG 3587 H IgA 15 L IgM 7 L Active Medications Generic Name Dose Route Start Last Admin Trade Name Freq PRN Reason Stop Dose Admin Allopurinol 150 mg 04/01/20 17:30 04/03/20 10:57 Zyloprim - PO 150 mg DAILY [facility]IE Administration Amlodipine Besylate 10 mg 03/28/20 10:00 04/03/20 10:57 Norvasc - PO 10 mg DAILY [facility] Administration Atorvastatin Calcium 10 mg 03/27/20 22:00 04/03/20 21:50 Lipitor - PO 10 mg HS BRODIE Administration Calcitonin 240 unit 04/01/20 10:00 04/03/20 13:19 Miacalcin Injection - IM 240 unit DAILY [facility]IE Administration Cyanocobalamin 1,000 mcg 04/04/20 10:15 Vitamin B12 - PO DAILY [facility]IE Hydralazine HCl 25 mg 03/27/20 22:00 04/04/20 05:11 Apresoline - PO 25 mg TID BRODIE Administration Sodium Chloride 1,000 mls @ 75 mls/hr 03/28/20 13:45 04/03/20 21:49 1/2 Normal Saline IV 75 mls/hr ASDIR BRODIE Administration Labetalol HCl 400 mg 03/27/20 22:00 04/03/20 21:50 Normodyne - PO 400 mg BID BRODIE Administration Sodium Bicarbonate 650 mg 04/03/20 14:00 04/04/20 05:11 Sodium Bicarbonate - PO 650 mg TID BRODIE Administration ASSESSMENT/PLAN: Patient is a 74 year old male with history of chronic kidney disease (baseline Cr approx. 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 Owen) regarding corsening azotemia, hypercalcemia, hyperphosphatemia. Acute kidney injury on CKD -BUN 55, Cr 5.9 -Renal, bladder US reveals bilateral echogenicity of the kidneys concerning for chronic disease. 0.5cm right sided non-obstructing stone noted. -Holding home Lasix -Continue hydration IV 0.45% normal saline at 75mL/ hour -Nephrology recommendations (Dr. Blount) appreciated. Macrocytic anemia -Hgb 6.7/ 20.5 -In setting of hypercalcemia, hyperphosphatemia, kidney injury concerning for multiple myeloma. -1 unit PRBC transfusion ordered. -Follow up bone marrow biopsy results. -Calcitonin for hypercalcemia -Bone scan from 11/2019 reveals no lytic lesions, or fractures -B12 1000mg PO daily -Hematology, oncology consult appreciated. Begin Dexamethasone 20mg IVPB daily, with Protonix. Hyperuricemia -Continue Allopurinol 150mg PO daily Lymphocytosis -Predominance of eosinophils, monocytes (noted similarly on prior CBC). However remains afebrile. Will monitor off antibiotics -Suspect this chronic finding is secondary to likely multiple myeloma -Urine culture negative for growth. Follow blood cultures. -Hematology recommendations appreciated History of hypertension -Continue home Labetalol, Hydralazine, Amlodipine FEN -IV 0.45% normal saline at 75mL/ hour -Follow BMP, Phosphate -Regular diet Prophylaxis -Heparin 5000units subq BID -Protonix 40mg PO daily Disposition -Continue care in medical surgical floor. Visit type - Emergency Visit Emergency Visit: Yes ED Registration Date: 03/27/20 Care time: The patient presented to the Emergency Department on the above date and was hospitalized for further evaluation of their emergent condition. - New Patient This patient is new to me today: No - Critical Care Critical Care patient: No - Discharge Referral Referred to [facility] No ATTENDING PHYSICIAN STATEMENT I saw and evaluated the patient. I reviewed the resident's note and discussed the case with the resident. I agree with the resident's findings and plan as documented. SUBJECTIVE: OBJECTIVE: ASSESSMENT AND PLAN:
[2020-04-04] MEDS: amLODIPine BESYLATE 10 MG TABLET (FP) PO SCH (11:48)
[2020-04-04] MEDS: CALCITONIN - SALMON SYNTHETIC 400 UNIT/2 ML VIAL IM SCH (11:49)
[2020-04-04] MEDS: ALLOPURINOL 100 MG TABLET (FP) PO SCH (11:49)
[2020-04-04] MEDS: DEXAMETHASONE SOD PHOSPHATE 10 MG/1 ML VIAL IVPB SCH (12:24)
[2020-04-04] MEDS: PANTOPRAZOLE 40 MG TABLET PO SCH (12:24)
--- NOTE | 2020-04-04 13:42 | PN ---
Teaching Attending Note Name of Resident: Luis Miguel Reyna ATTENDING PHYSICIAN STATEMENT I saw and evaluated the patient. I reviewed the resident's note and discussed the case with the resident. I agree with the resident's findings and plan as documented. SUBJECTIVE: Feeling well, no complaints. OBJECTIVE: Afebrile, Hemodynamically Stable. Last Vital Signs Temp Pulse Resp BP Pulse Ox 97.9 F 65 20 146/73 96 04/04/20 06:00 04/04/20 06:00 04/04/20 06:00 04/04/20 06:04/03/20 21:00 HEENT - Atraumatic, normocephalic. Heart - S1, S2, RRR Lungs - clear to auscultation Abdomen - soft, non-tender. Bowel Sounds normal. Extremities - no edema, no calf tenderness. Neuro - AAo x 3. Tone/Power normal. Laboratory Results - last 24 hr 04/02/20 04/04/20 04/04/20 06:20 07:45 07:45 WBC 12.4 H RBC 2.04 L Hgb 6.7 L* Hct 20.5 L MCV 100.7 H MCH 33.1 MCHC 32.9 RDW 21.3 H Plt Count 225 MPV 7.3 L Sodium 140 Potassium 3.6 Chloride 111 H Carbon Dioxide 15 L Anion Gap 14 BUN 50.3 H Creatinine 5.3 H Est GFR (CKD-EPI)AfAm 11.39 Est GFR (CKD-EPI)NonAf 9.83 Random Glucose 86 Uric Acid 7.9 H Calcium 10.0 Phosphorus 3.8 Magnesium 1.8 Total Bilirubin 0.3 AST 34 ALT 44 Alkaline Phosphatase 61 LD Total 213 Total Protein 8.5 H Albumin 3.0 L IgG 3587 H IgA 15 L IgM 7 L Blood Type Antibody Screen Crossmatch 04/04/20 11:18 WBC RBC Hgb Hct MCV MCH MCHC RDW Plt Count MPV Sodium Potassium Chloride Carbon Dioxide Anion Gap BUN Creatinine Est GFR (CKD-EPI)AfAm Est GFR (CKD-EPI)NonAf Random Glucose Uric Acid Calcium Phosphorus Magnesium Total Bilirubin AST ALT Alkaline Phosphatase LD Total Total Protein Albumin IgG IgA IgM Blood Type AB POSITIVE Antibody Screen Negative Crossmatch See Detail Current Medications Generic Name Dose Route Start Last Admin Trade Name Freq PRN Reason Stop Dose Admin Allopurinol 150 mg 04/01/20 17:30 04/04/20 11:49 Zyloprim - PO 150 mg DAILY [facility] Administration Amlodipine Besylate 10 mg 03/28/20 10:00 04/04/20 11:48 Norvasc - PO 10 mg DAILY [facility] Administration Atorvastatin Calcium 10 mg 03/27/20 22:00 04/03/20 21:50 Lipitor - PO 10 mg HS [facility] Administration Calcitonin 240 unit 04/01/20 10:00 04/04/20 11:49 Miacalcin Injection - IM 240 unit DAILY [facility] Administration Cyanocobalamin 1,000 mcg 04/04/20 10:15 04/04/20 11:33 Vitamin B12 - PO 1,000 mcg DAILY [facility] Administration Dexamethasone Sodium Phosphate 20 mg 04/04/20 11:45 04/04/20 12:24 Decadron Injection - IVPB 04/08/20 11:44 20 mg DAILY [facility] Administration Hydralazine HCl 25 mg 03/27/20 22:00 04/04/20 05:11 Apresoline - PO 25 mg TID [facility] Administration Sodium Chloride 1,000 mls @ 75 mls/hr 03/28/20 13:45 04/03/20 21:49 1/2 Normal Saline IV 75 mls/hr ASDIR [facility] Administration Labetalol HCl 400 mg 03/27/20 22:00 04/04/20 11:33 Normodyne - PO 400 mg BID [facility] Administration Pantoprazole Sodium 40 mg 04/04/20 11:45 04/04/20 12:24 Protonix - PO 40 mg DAILY [facility] Administration Sodium Bicarbonate 650 mg 04/03/20 14:00 04/04/20 05:11 Sodium Bicarbonate - PO 650 mg TID BR[facility] Administration Home Medications Medication Instructions Recorded Amlodipine Besylate [Norvasc -] 10 mg PO DAILY #30 tablet 09/08/19 Atorvastatin Ca [Lipitor] 10 mg PO HS #30 tablet 09/08/19 Labetalol HCl [Normodyne -] 400 mg PO BID #60 tablet 09/08/19 Tamsulosin HCl [Flomax -] 0.4 mg PO DAILY@0830 #30 cap.er.24h 09/08/19 Triamcinolone 0.1% Ointment 1 applic TP BID #1 each 09/08/19 [Aristocort 0.1% Ointment -] Fluocinonide 0.05% Cream [Lidex 1 applic TP DAILY #1 tube 11/01/19 0.05% Cream -] Hydralazine HCl 25 mg PO TID 30 Days #90 tablet 11/08/19 Labetalol HCl [Normodyne -] 200 mg PO TID 30 Days #90 tablet 11/08/19 ASSESSMENT AND PLAN: 74 year old male with history of CKD 3, HTN, HLD, BPH, currently undergoing outpatient workup for multiple myeloma, referred by his chain maker machine (Dr. Owen) for worsening renal failure, hypercalcemia, hyperphosphatemia. Renal US - findings suggestive of chronic renal disease. 1. JAY on CKD 3/Hypercalcemia/Macrocytic Anemia M-spike, likely MM s/p BM Bx - initial Flow cytometry results suggestive of MM, awaiting final Bx report Started on 4 days IV steroid by Hematology/Oncology - for eventual Velcade +/- Cytoxan on BM Bx confirms MM. Bicarb as per Nephrology IV Hydration/Calcitonin for hypercalcemia. Allopurinol for elevated Uric Acid sec to MM Skeletal Survey requested. 2. Macrocytic Anemia sec to likely MM, MCV 100.9 H.H 6.7/20.5 - will transfuse 1 unit PRBCs. B12 levels borderline, will supplement. 3. HTN - Continue home Labetalol, Hydralazine, Amlodipine 4. BPH - continue Tamsulosin. 5. HLD - continue Atorvastatin. DVT Px - will resume Heparin SQ BID
[2020-04-04] MEDS: HEPARIN NA (PORCINE) 5,000 UNITS/ML 1ML VIAL SQ SCH ×2 (16:24→21:17)
[2020-04-04 17:11] LABS: FREE KAPPA,SERUM 31.3 mg/L (3.3-19.4)
[2020-04-04] MEDS: SODIUM CHLORIDE 0.45% 1,000 ML IV SCH (18:50)
--- NOTE | 2020-04-04 19:08 | PN ---
Progress Note, Physician History of Present Illness: Pt seen and examined at bedside. He is awake and alert. He denies shortness of breath. - Current Medication List Current Medications: Active Medications Allopurinol (Zyloprim -) 150 mg PO DAILY [facility] Last Admin: 04/04/20 11:49 Dose: 150 mg Documented by: Amlodipine Besylate (Norvasc -) 10 mg PO DAILY [facility] Last Admin: 04/04/20 11:48 Dose: 10 mg Documented by: Atorvastatin Calcium (Lipitor -) 10 mg PO HS [facility] Last Admin: 04/03/20 21:50 Dose: 10 mg Documented by: Calcitonin (Miacalcin Injection -) 240 unit IM DAILY [facility] Last Admin: 04/04/20 11:49 Dose: 240 unit Documented by: Cyanocobalamin (Vitamin B12 -) 1,000 mcg PO DAILY [facility] Last Admin: 04/04/20 11:33 Dose: 1,000 mcg Documented by: Dexamethasone Sodium Phosphate (Decadron Injection -) 20 mg IVPB DAILY [facility] Stop: 04/08/20 11:44 Last Admin: 04/04/20 12:24 Dose: 20 mg Documented by: Heparin Sodium (Porcine) (Heparin -) 5,000 unit SQ BID [facility] Last Admin: 04/04/20 16:24 Dose: 5,000 unit Documented by: Hydralazine HCl (Apresoline -) 25 mg PO TID [facility] Last Admin: 04/04/20 16:24 Dose: 25 mg Documented by: Sodium Chloride (1/2 Normal Saline) 1,000 mls @ 75 mls/hr IV ASDIR [facility] Last Admin: 04/04/20 18:50 Dose: 75 mls/hr Documented by: Labetalol HCl (Normodyne -) 400 mg PO BID [facility] Last Admin: 04/04/20 11:33 Dose: 400 mg Documented by: Pantoprazole Sodium (Protonix -) 40 mg PO DAILY [facility] Last Admin: 04/04/20 12:24 Dose: 40 mg Documented by: Sodium Bicarbonate (Sodium Bicarbonate -) 650 mg PO TID [facility] Last Admin: 04/04/20 16:24 Dose: 650 mg Documented by: - Objective Vital Signs: Vital Signs Temperature 98.1 F 04/04/20 14:27 Pulse Rate 67 04/04/20 14:27 Respiratory Rate 20 04/04/20 14:27 Blood Pressure 127/67 04/04/20 14:27 O2 Sat by Pulse Oximetry (%) 94 L 04/04/20 09:00 Constitutional: Yes: Calm Eyes: Yes: Conjunctiva Clear HENT: Yes: Atraumatic Neck: Yes: Supple Cardiovascular: Yes: S1, S2 Respiratory: Yes: CTA Bilaterally Gastrointestinal: Yes: Soft Genitourinary: Yes: WNL Musculoskeletal: Yes: WNL Edema: No Neurological: Yes: Oriented Psychiatric: Yes: Oriented Labs: CBC, BMP 04/04/20 07:45 04/04/20 07:45 INR, PTT INR 1.12 (0.83-1.09) H 03/28/20 07:00 Problem List - Problems (1) [id number] kidney injury Code(s): N17.9 - ACUTE KIDNEY FAILURE, UNSPECIFIED; N18.9 - CHRONIC KIDNEY DISEASE, UNSPECIFIED Qualifiers: Chronic kidney disease stage: stage 3 (moderate) Assessment/Plan Current Medications Generic Name Dose Route Start Last Admin Trade Name Freq PRN Reason Stop Dose Admin Allopurinol 150 mg 04/01/20 17:30 04/04/20 11:49 Zyloprim - PO 150 mg DAILY [facility] Administration Amlodipine Besylate 10 mg 03/28/20 10:00 04/04/20 11:48 Norvasc - PO 10 mg DAILY [facility] Administration Atorvastatin Calcium 10 mg 03/27/20 22:00 04/03/20 21:50 Lipitor - PO 10 mg HS [facility] Administration Calcitonin 240 unit 04/01/20 10:00 04/04/20 11:49 Miacalcin Injection - IM 240 unit DAILY [facility] Administration Cyanocobalamin 1,000 mcg 04/04/20 10:15 04/04/20 11:33 Vitamin B12 - PO 1,000 mcg DAILY [facility] Administration Dexamethasone Sodium Phosphate 20 mg 04/04/20 11:45 04/04/20 12:24 Decadron Injection - IVPB 04/08/20 11:44 20 mg DAILY [facility] Administration Heparin Sodium (Porcine) 5,000 unit 04/04/20 14:02 04/04/20 16:24 Heparin - SQ 5,000 unit BID [facility] Administration Hydralazine HCl 25 mg 03/27/20 22:00 04/04/20 16:24 Apresoline - PO 25 mg TID [facility] Administration Sodium Chloride 1,000 mls @ 75 mls/hr 03/28/20 13:45 04/04/20 18:50 1/2 Normal Saline IV 75 mls/hr ASDIR [facility] Administration Labetalol HCl 400 mg 03/27/20 22:00 04/04/20 11:33 Normodyne - PO 400 mg BID [facility] Administration Pantoprazole Sodium 40 mg 04/04/20 11:45 04/04/20 12:24 Protonix - PO 40 mg DAILY [facility] Administration Sodium Bicarbonate 650 mg 04/03/20 14:00 04/04/20 16:24 Sodium Bicarbonate - PO 650 mg TID BR[facility] Administration Impression 1. CKD 2. HTN 3. JAY 4. HLD 5. protienuria 6. m-spike - r/o myeloma 7. hypercalcemia Plan - increase bicarb dose - cont fluids - prelim results favor myeloma - follow final biopsy - monitor renal function closely - monitor uric acid level
[2020-04-04] MEDS ORDERED: POTASSIUM CHLORIDE TABS 20 MEQ TABLET.ER (FP) PO ONE (19:09)
[2020-04-04] MEDS ORDERED: SODIUM BICARBONATE 650 MG TABLET PO ONE (19:09)
--- NOTE | 2020-04-04 19:36 | PN.HO ---
Progress Note (short form) - Note Progress Note: Patient seen and examined Denies specific complaints Last Vital Signs Temp Pulse Resp BP Pulse Ox 97.4 F L 65 18 149/75 94 L 04/04/20 19:00 04/04/20 19:00 04/04/20 19:00 04/04/20 19:00 04/04/20 09:00 Cor: RSR, No murmurs, No gallops Lungs: Clear to P&A Abd: Soft, Normal bowel sounds, No organomegaly Ext:No significant edema LAbs/Meds reviewed A/P 74 y/o patient with HTN/HLD --- JAY/anemia, concern for myeloma On 10/07 NS at 75ml/hr. -- with gradually improving renal function Preliminary flow c/w myeloma await final pathology check skeletal survey Start dexamethasone 20mg IVPB daily x 4 days with protonix after rechecking uric acid in AM Will add velcade and cytoxan once final path is back Pt continues to report SOB with minimal exertion sometimes. Will consider Cards/Pulm input if not had during this admission Discussed in detail with patient and son.
[2020-04-04] MEDS: ATORVASTATIN CA 10 MG TABLET (FP) PO SCH (21:17)
[2020-04-05] MEDS: hydrALAZINE HCL 25 MG TABLET (FP) PO SCH ×3 (05:43→22:53)
[2020-04-05 08:11] LABS: HEMATOCRIT 25.6 % (35.4-49); HEMOGLOBIN 8.3 GM/dL (11.7-16.9); MCH 32.7 pg (25.7-33.7); MCHC 32.5 g/dl (32.0-35.9); MEAN CELL VOLUME 100.5 fl (80-96); MEAN PLT VOLUME 7.6 fl (7.5-11.1); PLATELET COUNT 221 K/MM3 (134-434); RBC 2.55 M/mm3 (4.00-5.60); RDW 19.8 % (11.9-15.9)
[2020-04-05 08:12] LABS: ALBUMIN 3.3 g/dl (3.4-5.0); BILIRUBIN,TOTAL 0.5 mg/dL (0.2-1); BLOOD UREA NITROGEN 57.5 mg/dL (7-18); CALCIUM 10.6 mg/dL (8.5-10.1); CREATININE 5.2 mg/dL (0.55-1.3); MAGNESIUM 2.1 mg/dL (1.8-2.4); PHOSPHOROUS 4.5 mg/dL (2.5-4.9); POTASSIUM 4.6 mmol/L (3.5-5.1)
[2020-04-05 08:26] LABS: WHITE BLOOD COUNT 15.3 K/mm3 (4.0-10.0)
[2020-04-05] MEDS ORDERED: PT OWN MED DRAWER 7, Y5N ONE ×2 (09:29→21:44)
[2020-04-05] MEDS: SODIUM CHLORIDE 0.45% 1,000 ML IV SCH ×3 (09:43→23:48)
[2020-04-05] MEDS: DEXAMETHASONE SOD PHOSPHATE 10 MG/1 ML VIAL IVPB SCH (09:43)
[2020-04-05] MEDS: SODIUM BICARBONATE 650 MG TABLET PO SCH ×2 (09:44→22:53)
[2020-04-05] MEDS: CALCITONIN - SALMON SYNTHETIC 400 UNIT/2 ML VIAL IM SCH ×2 (09:44→22:53)
[2020-04-05] MEDS: amLODIPine BESYLATE 10 MG TABLET (FP) PO SCH (09:45)
[2020-04-05] MEDS: ALLOPURINOL 100 MG TABLET (FP) PO SCH (09:45)
[2020-04-05] MEDS: PANTOPRAZOLE 40 MG TABLET PO SCH (09:45)
[2020-04-05] MEDS: LABETALOL HCL 200 MG TABLET (FP) PO SCH ×2 (09:45→22:53)
[2020-04-05] MEDS: HEPARIN NA (PORCINE) 5,000 UNITS/ML 1ML VIAL SQ SCH ×2 (09:45→22:53)
[2020-04-05] MEDS: CYANOCOBALAMIN 1,000 MCG TABLET (FP) PO SCH (09:45)
--- NOTE | 2020-04-05 16:09 | PN ---
Teaching Attending Note Name of Resident: Nicanor Bui ATTENDING PHYSICIAN STATEMENT I saw and evaluated the patient. I reviewed the resident's note and discussed the case with the resident. I agree with the resident's findings and plan as documented. SUBJECTIVE: Feeling well, no complaints. No shortness of breath. OBJECTIVE: Afebrile, Hemodynamically Stable. Last Vital Signs Temp Pulse Resp BP Pulse Ox 97.8 F 58 L 18 135/77 96 04/05/20 14:34 04/05/20 14:34 04/05/20 14:34 04/05/20 14:34 04/05/20 09:00 Heart - S1, S2, RRR Lungs - clear to auscultation Abdomen - soft, non-tender. Bowel Sounds normal. Extremities - no edema, no calf tenderness. Neuro - AAo x 3. Tone/Power normal. Laboratory Results - last 24 hr 04/01/20 04/02/20 04/05/20 19:10 06:20 06:00 WBC RBC Hgb Hct MCV MCH MCHC RDW Plt Count MPV Sodium 137 Potassium 4.6 Chloride 109 H Carbon Dioxide 17 L Anion Gap 10 BUN 57.5 H Creatinine 5.2 H Est GFR (CKD-EPI)AfAm 11.66 Est GFR (CKD-EPI)NonAf 10.06 Random Glucose 160 H Calcium 10.6 H Phosphorus 4.5 Magnesium 2.1 Total Bilirubin 0.5 AST 39 H ALT 59 Alkaline Phosphatase 68 Total Protein 9.0 H Albumin 3.3 L Serum RAGINI Interpret IEP IgG 3714 H IEP IgA 15 L IEP IgM 7 L Free [place] LC, Quant 31.3 H Free [place] LC, Quant 169.5 H Free [place]/Lambda Ratio 0.18 L 04/05/20 06:55 WBC 15.3 H RBC 2.55 L Hgb 8.3 L Hct 25.6 L D MCV 100.5 H MCH 32.7 MCHC 32.5 RDW 19.8 H Plt Count 221 MPV 7.6 Sodium Potassium Chloride Carbon Dioxide Anion Gap BUN Creatinine Est GFR (CKD-EPI)AfAm Est GFR (CKD-EPI)NonAf Random Glucose Calcium Phosphorus Magnesium Total Bilirubin AST ALT Alkaline Phosphatase Total Protein Albumin Serum RAGINI Interpret IEP IgG IEP IgA IEP IgM Free [place] LC, Quant Free [place]ambda LC, Quant Free [place]/Lambda Ratio Current Medications Generic Name Dose Route Start Last Admin Trade Name Freq PRN Reason Stop Dose Admin Allopurinol 150 mg 04/01/20 17:30 04/05/20 09:45 Zyloprim - PO 150 mg DAILY [facility] Administration Amlodipine Besylate 10 mg 03/28/20 10:00 04/05/20 09:45 Norvasc - PO 10 mg DAILY [facility] Administration Atorvastatin Calcium 10 mg 03/27/20 22:00 04/04/20 21:17 Lipitor - PO 10 mg HS [facility] Administration Calcitonin 240 unit 04/01/20 10:00 04/05/20 09:44 Miacalcin Injection - IM 240 unit DAILY [facility] Administration Cyanocobalamin 1,000 mcg 04/04/20 10:15 04/05/20 09:45 Vitamin B12 - PO 1,000 mcg DAILY [facility] Administration Dexamethasone Sodium Phosphate 20 mg 04/04/20 11:45 04/05/20 09:43 Decadron Injection - IVPB 04/08/20 11:44 20 mg DAILY [facility] Administration Heparin Sodium (Porcine) 5,000 unit 04/04/20 14:02 04/05/20 09:45 Heparin - SQ 5,000 unit BID [facility] Administration Hydralazine HCl 25 mg 03/27/20 22:00 04/05/20 13:39 Apresoline - PO 25 mg TID [facility] Administration Sodium Chloride 1,000 mls @ 75 mls/hr 03/28/20 13:45 04/05/20 13:53 1/2 Normal Saline IV Not Given ASDIR BRODIE Labetalol HCl 400 mg 03/27/20 22:00 04/05/20 09:45 Normodyne - PO 400 mg BID [facility] Administration Pantoprazole Sodium 40 mg 04/04/20 11:45 04/05/20 09:45 Protonix - PO 40 mg DAILY [facility] Administration Sodium Bicarbonate 1,300 mg 04/04/20 22:00 04/05/20 09:44 Sodium Bicarbonate - PO 1,300 mg BID [facility] Administration Home Medications Medication Instructions Recorded Amlodipine Besylate [Norvasc -] 10 mg PO DAILY #30 tablet 09/08/19 Atorvastatin Ca [Lipitor] 10 mg PO HS #30 tablet 09/08/19 Labetalol HCl [Normodyne -] 400 mg PO BID #60 tablet 09/08/19 Tamsulosin HCl [Flomax -] 0.4 mg PO DAILY@0830 #30 cap.er.24h 09/08/19 Triamcinolone 0.1% Ointment 1 applic TP BID #1 each 09/08/19 [Aristocort 0.1% Ointment -] Fluocinonide 0.05% Cream [Lidex 1 applic TP DAILY #1 tube 11/01/19 0.05% Cream -] Hydralazine HCl 25 mg PO TID 30 Days #90 tablet 11/08/19 Labetalol HCl [Normodyne -] 200 mg PO TID 30 Days #90 tablet 11/08/19 ASSESSMENT AND PLAN: 74 year old male with history of CKD 3, HTN, HLD, BPH, currently undergoing outpatient workup for multiple myeloma, referred by his code official (Dr. Owen) for worsening renal failure, hypercalcemia, hyperphosphatemia. Renal US - findings suggestive of chronic renal disease. 1. JAY on CKD 3/Hypercalcemia/Macrocytic Anemia M-spike, likely MM s/p BM Bx - initial Flow cytometry results suggestive of MM, awaiting final Bx report Started on 4 days IV steroid by Hematology/Oncology - for eventual Velcade +/- Cytoxan on BM Bx confirms MM. Bicarb as per Nephrology IV Hydration/ Calcitonin for Hypercalcemia. Allopurinol for elevated Uric Acid sec to MM Skeletal Survey done, awaiting report. 2. Macrocytic Anemia sec to likely MM, MCV 100.9 H.H 8.3/25.6 up from 6.7/20.5 s/p 1 unit PRBCs. B12 levels borderline, supplemented. 3. HTN - Continue home Labetalol, Hydralazine, Amlodipine 4. BPH - continue Tamsulosin. 5. HLD - continue Atorvastatin. DVT Px - will resume Heparin SQ BID
[2020-04-05] MEDS ORDERED: FUROSEMIDE 40 MG TABLET (FP) PO ONE (17:31)
--- NOTE | 2020-04-05 17:31 | PN ---
Progress Note, Physician History of Present Illness: Pt seen and examined at bedside. He is awake and alert. He does get some shortness of breath on exertion. - Current Medication List Current Medications: Active Medications Allopurinol (Zyloprim -) 150 mg PO DAILY [facility] Last Admin: 04/05/20 09:45 Dose: 150 mg Documented by: Amlodipine Besylate (Norvasc -) 10 mg PO DAILY [facility] Last Admin: 04/05/20 09:45 Dose: 10 mg Documented by: Atorvastatin Calcium (Lipitor -) 10 mg PO HS [facility] Last Admin: 04/04/20 21:17 Dose: 10 mg Documented by: Calcitonin (Miacalcin Injection -) 240 unit IM DAILY [facility] Last Admin: 04/05/20 09:44 Dose: 240 unit Documented by: Cyanocobalamin (Vitamin B12 -) 1,000 mcg PO DAILY [facility] Last Admin: 04/05/20 09:45 Dose: 1,000 mcg Documented by: Dexamethasone Sodium Phosphate (Decadron Injection -) 20 mg IVPB DAILY [facility] Stop: 04/08/20 11:44 Last Admin: 04/05/20 09:43 Dose: 20 mg Documented by: Heparin Sodium (Porcine) (Heparin -) 5,000 unit SQ BID [facility] Last Admin: 04/05/20 09:45 Dose: 5,000 unit Documented by: Hydralazine HCl (Apresoline -) 25 mg PO TID [facility] Last Admin: 04/05/20 13:39 Dose: 25 mg Documented by: Sodium Chloride (1/2 Normal Saline) 1,000 mls @ 75 mls/hr IV ASDIR [facility] Last Admin: 04/05/20 13:53 Dose: Not Given Documented by: Labetalol HCl (Normodyne -) 400 mg PO BID [facility] Last Admin: 04/05/20 09:45 Dose: 400 mg Documented by: Pantoprazole Sodium (Protonix -) 40 mg PO DAILY [facility] Last Admin: 04/05/20 09:45 Dose: 40 mg Documented by: Sodium Bicarbonate (Sodium Bicarbonate -) 1,300 mg PO BID [facility] Last Admin: 04/05/20 09:44 Dose: 1,300 mg Documented by: - Objective Vital Signs: Vital Signs Temperature 97.8 F 04/05/20 14:34 Pulse Rate 58 L 04/05/20 14:34 Respiratory Rate 18 04/05/20 14:34 Blood Pressure 135/77 04/05/20 14:34 O2 Sat by Pulse Oximetry (%) 96 04/05/20 09:00 Constitutional: Yes: Calm Eyes: Yes: Conjunctiva Clear HENT: Yes: Atraumatic Neck: Yes: Supple Cardiovascular: Yes: S1, S2 Respiratory: Yes: CTA Bilaterally Gastrointestinal: Yes: Soft Genitourinary: Yes: WNL Musculoskeletal: Yes: WNL Edema: No Neurological: Yes: Oriented Psychiatric: Yes: Oriented Labs: CBC, BMP 04/05/20 06:55 04/05/20 06:00 INR, PTT INR 1.12 (0.83-1.09) H 03/28/20 07:00 Problem List - Problems (1) Lhzox-ti-rvztzey kidney injury Code(s): N17.9 - ACUTE KIDNEY FAILURE, UNSPECIFIED; N18.9 - CHRONIC KIDNEY DISEASE, UNSPECIFIED Qualifiers: Chronic kidney disease stage: stage 3 (moderate) Assessment/Plan Current Medications Generic Name Dose Route Start Last Admin Trade Name Freq PRN Reason Stop Dose Admin Allopurinol 150 mg 04/01/20 17:30 04/05/20 09:45 Zyloprim - PO 150 mg DAILY [facility] Administration Amlodipine Besylate 10 mg 03/28/20 10:00 04/05/20 09:45 Norvasc - PO 10 mg DAILY [facility] Administration Atorvastatin Calcium 10 mg 03/27/20 22:00 04/04/20 21:17 Lipitor - PO 10 mg HS [facility] Administration Calcitonin 240 unit 04/01/20 10:00 04/05/20 09:44 Miacalcin Injection - IM 240 unit DAILY [facility] Administration Cyanocobalamin 1,000 mcg 04/04/20 10:15 04/05/20 09:45 Vitamin B12 - PO 1,000 mcg DAILY [facility] Administration Dexamethasone Sodium Phosphate 20 mg 04/04/20 11:45 04/05/20 09:43 Decadron Injection - IVPB 04/08/20 11:44 20 mg DAILY [facility] Administration Heparin Sodium (Porcine) 5,000 unit 04/04/20 14:02 04/05/20 09:45 Heparin - SQ 5,000 unit BID [facility] Administration Hydralazine HCl 25 mg 03/27/20 22:00 04/05/20 13:39 Apresoline - PO 25 mg TID [facility] Administration Sodium Chloride 1,000 mls @ 75 mls/hr 03/28/20 13:45 04/05/20 13:53 1/2 Normal Saline IV Not Given ASDIR [facility] Labetalol HCl 400 mg 03/27/20 22:00 04/05/20 09:45 Normodyne - PO 400 mg BID [facility] Administration Pantoprazole Sodium 40 mg 04/04/20 11:45 04/05/20 09:45 Protonix - PO 40 mg DAILY [facility] Administration Sodium Bicarbonate 1,300 mg 04/04/20 22:00 04/05/20 09:44 Sodium Bicarbonate - PO 1,300 mg BID BRODIE Administration Impression 1. CKD 2. HTN 3. JAY 4. HLD 5. protienuria 6. m-spike - r/o myeloma 7. hypercalcemia Plan - cont fluids - will give a dose of lasix - cont bicarb - follow biopsy - am cxr - cont calcitonin - monitor uric acid level
[2020-04-05] MEDS ORDERED: BISACODYL 5 MG TABLET.DR (FP) PO ONE (18:01)
--- NOTE | 2020-04-05 18:07 | PN ---
Physical Exam: SUBJECTIVE: Patient seen and examined Patient examined at bedside was AAOx3 no complaints and comfortable. Patient denies any acute pain or shortness of breath. OBJECTIVE: Vital Signs Period Temp Pulse Resp BP Sys/Judd Pulse Ox Last 24 Hr 97.4 F-97.8 F 58-78 18-18 120-149/75-77 96-96 GENERAL: The patient is awake, alert, and fully oriented, in no acute distress. HEAD: Normal with no signs of trauma. EYES: PERRL, extraocular movements intact, sclera anicteric, conjunctiva clear. No ptosis. ENT: Ears normal, nares patent, oropharynx clear without exudates, moist mucous membranes. NECK: Trachea midline, full range of motion, supple. LUNGS: Breath sounds equal, clear to auscultation bilaterally, no wheezes, no crackles, no accessory muscle use. HEART: Regular rate and rhythm, S1, S2 without murmur, rub or gallop. ABDOMEN: Soft, nontender, nondistended, normoactive bowel sounds, no guarding, no rebound, no hepatosplenomegaly, no masses. EXTREMITIES: 2+ pulses, warm, well-perfused, no edema. NEUROLOGICAL: Cranial nerves II through XII grossly intact. Normal speech, gait not observed. PSYCH: Normal mood, normal affect. SKIN: Warm, dry, normal turgor, no rashes or lesions noted Laboratory Results - last 24 hr 04/01/20 04/05/20 04/05/20 19:10 06:00 06:55 WBC 15.3 H RBC 2.55 L Hgb 8.3 L Hct 25.6 L D MCV 100.5 H MCH 32.7 MCHC 32.5 RDW 19.8 H Plt Count 221 MPV 7.6 Sodium 137 Potassium 4.6 Chloride 109 H Carbon Dioxide 17 L Anion Gap 10 BUN 57.5 H Creatinine 5.2 H Est GFR (CKD-EPI)AfAm 11.66 Est GFR (CKD-EPI)NonAf 10.06 Random Glucose 160 H Calcium 10.6 H Phosphorus 4.5 Magnesium 2.1 Total Bilirubin 0.5 AST 39 H ALT 59 Alkaline Phosphatase 68 Total Protein 9.0 H Albumin 3.3 L Serum RAGINI Interpret IEP IgG 3714 H IEP IgA 15 L IEP IgM 7 L Active Medications Generic Name Dose Route Start Last Admin Trade Name Freq PRN Reason Stop Dose Admin Allopurinol 150 mg 04/01/20 17:30 04/05/20 09:45 Zyloprim - PO 150 mg DAILY [facility] Administration Amlodipine Besylate 10 mg 03/28/20 10:00 04/05/20 09:45 Norvasc - PO 10 mg DAILY [facility] Administration Atorvastatin Calcium 10 mg 03/27/20 22:00 04/04/20 21:17 Lipitor - PO 10 mg HS [facility] Administration Calcitonin 240 unit 04/05/20 22:00 Miacalcin Injection - IM BID [facility] Cyanocobalamin 1,000 mcg 04/04/20 10:15 04/05/20 09:45 Vitamin B12 - PO 1,000 mcg DAILY [facility] Administration Dexamethasone Sodium Phosphate 20 mg 04/04/20 11:45 04/05/20 09:43 Decadron Injection - IVPB 04/08/20 11:44 20 mg DAILY [facility] Administration Docusate Sodium 300 mg 04/05/20 22:00 Colace - PO HS [facility] Heparin Sodium (Porcine) 5,000 unit 04/04/20 14:02 04/05/20 09:45 Heparin - SQ 5,000 unit BID [facility] Administration Hydralazine HCl 25 mg 03/27/20 22:00 04/05/20 13:39 Apresoline - PO 25 mg TID [facility] Administration Sodium Chloride 1,000 mls @ 75 mls/hr 03/28/20 13:45 04/05/20 13:53 1/2 Normal Saline IV Not Given ASDIR [facility] Labetalol HCl 400 mg 03/27/20 22:00 04/05/20 09:45 Normodyne - PO 400 mg BID [facility] Administration Pantoprazole Sodium 40 mg 04/04/20 11:45 04/05/20 09:45 Protonix - PO 40 mg DAILY [facility] Administration Sodium Bicarbonate 1,300 mg 04/04/20 22:00 04/05/20 09:44 Sodium Bicarbonate - PO 1,300 mg BID [facility] Administration ASSESSMENT/PLAN: Patient is a 74 year old male with a PMHx of suspected multiple myeloma under the care of Dr. Owen, hypercalcemia 2* to MM,hyperphosphatemia, stage 3 CKD, HTN/HLD 1. Stage 3 CKD, hypercalcemia, macrocytic anemia - suspected MM - Iv steroids - Biopsy confirmation of MM - IV hydration - calcitonin - Allopurinol 2. Macrocytic anemia 2* to MM - MCV = 100.9 - patient given 1 unit of blood - HH 8.3/25.6 from 6.7/20.5 - B12 3. HTN - continue labetalol -continue hydralazine -continue amlodipine 4. BPH - tamsulosin 5. HLD -atorvastatin 6. DVT - heparin SQ BID Visit type - Emergency Visit Emergency Visit: Yes ED Registration Date: 03/27/20 Care time: The patient presented to the Emergency Department on the above date and was hospitalized for further evaluation of their emergent condition. - New Patient This patient is new to me today: No - Critical Care Critical Care patient: No - Discharge Referral Referred to [facility] Med [facility] No ATTENDING PHYSICIAN STATEMENT I saw and evaluated the patient. I reviewed the resident's note and discussed the case with the resident. I agree with the resident's findings and plan as documented. SUBJECTIVE: OBJECTIVE: ASSESSMENT AND PLAN:
[2020-04-05] MEDS ORDERED: DOCUSATE SODIUM 100 MG CAPSULE (FP) PO SCH (22:00)
[2020-04-05] MEDS: ATORVASTATIN CA 10 MG TABLET (FP) PO SCH (22:53)
--- NOTE | 2020-04-05 23:16 | PN.HO ---
Progress Note (short form) - Note Progress Note: PAtient seen and examined Discussed via historical interpreter Denies specific complaints Last Vital Signs Temp Pulse Resp BP Pulse Ox 97.6 F 68 20 127/77 95 04/03/20 18:00 04/03/20 18:00 04/03/20 18:00 04/03/20 18:00 04/03/20 09:00 Last Vital Signs Temp Pulse Resp BP Pulse Ox 97.6 F 67 20 165/100 93 L 04/05/20 22:20 04/05/20 22:20 04/05/20 22:20 04/05/20 22:20 04/05/20 21:00 Cor: RSR, No murmurs, No gallops Lungs: Clear to P&A Abd: Soft, Normal bowel sounds, No organomegaly Ext:No significant edema LAbs/Meds reviewed A/P 74 y/o patient with HTN/HLD --- JAY/anemia, concern for myeloma On 10/07 NS at 75ml/hr. -- with gradually improving renal function Preliminary flow c/w myeloma IgG lambda await final pathology check skeletal survey Started dexamethasone 20mg IVPB daily x 4 days on 04/05 with protonix after rechecking uric acid in AM Will add velcade and cytoxan once final path is back Discussed in detail with patient and his daughter. Patient is alert, oriented in place, person, year. HAs mild memory deficits but able to overall understand . Out patient neuro follow up for further w/u
[2020-04-05] MEDS ORDERED: LACTULOSE 20 GM/30 ML UDC (FOR ORAL USE ONLY) PO ONE (23:30)
[2020-04-06] MEDS: hydrALAZINE HCL 25 MG TABLET (FP) PO SCH ×3 (06:23→21:47)
[2020-04-06 08:55] LABS: HEMATOCRIT 25.3 % (35.4-49); HEMOGLOBIN 8.3 GM/dL (11.7-16.9); MCH 32.7 pg (25.7-33.7); MCHC 32.6 g/dl (32.0-35.9); MEAN CELL VOLUME 100.3 fl (80-96); MEAN PLT VOLUME 7.4 fl (7.5-11.1); PLATELET COUNT 214 K/MM3 (134-434); RBC 2.53 M/mm3 (4.00-5.60); RDW 20.3 % (11.9-15.9); WHITE BLOOD COUNT 15.7 K/mm3 (4.0-10.0)
[2020-04-06] MEDS: HEPARIN NA (PORCINE) 5,000 UNITS/ML 1ML VIAL SQ SCH ×2 (08:59→21:46)
[2020-04-06] MEDS: DEXAMETHASONE SOD PHOSPHATE 10 MG/1 ML VIAL IVPB SCH (08:59)
[2020-04-06] MEDS: LABETALOL HCL 200 MG TABLET (FP) PO SCH ×2 (09:00→21:47)
[2020-04-06] MEDS: CYANOCOBALAMIN 1,000 MCG TABLET (FP) PO SCH (09:01)
[2020-04-06] MEDS: SODIUM BICARBONATE 650 MG TABLET PO SCH ×2 (09:01→21:47)
[2020-04-06] MEDS: PANTOPRAZOLE 40 MG TABLET PO SCH (09:01)
[2020-04-06] MEDS: ALLOPURINOL 100 MG TABLET (FP) PO SCH (09:01)
[2020-04-06] MEDS: amLODIPine BESYLATE 10 MG TABLET (FP) PO SCH (09:02)
[2020-04-06 09:26] LABS: BLOOD UREA NITROGEN 78.9 mg/dL (7-18); CALCIUM 10.5 mg/dL (8.5-10.1); CREATININE 5.4 mg/dL (0.55-1.3); POTASSIUM 4.3 mmol/L (3.5-5.1)
[2020-04-06] MEDS ORDERED: SENNOSIDES 8.6MG TABLET (FP) PO PRN (10:44)
[2020-04-06] MEDS ORDERED: POLYETHYLENE GLYCOL 3350 119 GM BTL PO SCH (10:45)
[2020-04-06] MEDS: POLYETHYLENE GLYCOL 3350 119 GM BTL PO PRN (11:19)
--- NOTE | 2020-04-06 11:52 | PN ---
Chief Complaint: patient seen and examined feels well. denies any complaints Last Vital Signs Temp Pulse Resp BP Pulse Ox 98.3 F 68 18 153/78 93 L 04/06/20 08:39 04/06/20 08:39 04/06/20 08:39 04/06/20 08:39 04/05/20 21:00 Cor: RSR, No murmurs, No gallops Lungs: Clear to P&A Abd: Soft, Normal bowel sounds, No organomegaly Ext:No significant edema Labs/ meds reviewed A/P 74 y/o patient with presumed myeloma, IgG lambda awaiting final pathology On decadron - Medications/Allergies Allergies/Adverse Reactions: Allergies Allergy/AdvReac Type Severity Reaction Status Date / Time No Known Allergies Allergy Verified 03/27/20 12:50 Medications: Current Medications Generic Name Dose Route Start Last Admin Trade Name Freq PRN Reason Stop Dose Admin Allopurinol 150 mg 04/01/20 17:30 04/06/20 09:01 Zyloprim - PO 150 mg DAILY BRODIE Administration Amlodipine Besylate 10 mg 03/28/20 10:00 04/06/20 09:02 Norvasc - PO 10 mg DAILY BRODIE Administration Atorvastatin Calcium 10 mg 03/27/20 22:00 04/05/20 22:53 Lipitor - PO 10 mg HS BRODIE Administration Calcitonin 240 unit 04/05/20 22:00 04/05/20 22:53 Miacalcin Injection - IM 240 unit BID BRODIE Administration Cyanocobalamin 1,000 mcg 04/04/20 10:15 04/06/20 09:01 Vitamin B12 - PO 1,000 mcg DAILY BRODIE Administration Dexamethasone Sodium Phosphate 20 mg 04/04/20 11:45 04/06/20 08:59 Decadron Injection - IVPB 04/08/20 11:44 20 mg DAILY BRODIE Administration Docusate Sodium 100 mg 04/06/20 10:46 Colace - PO BID BRODIE Heparin Sodium (Porcine) 5,000 unit 04/04/20 14:02 04/06/20 08:59 Heparin - SQ 5,000 unit BID BRODIE Administration Hydralazine HCl 25 mg 03/27/20 22:00 04/06/20 06:23 Apresoline - PO 25 mg TID BRODIE Administration Sodium Chloride 1,000 mls @ 75 mls/hr 03/28/20 13:45 04/05/20 23:48 1/2 Normal Saline IV 75 mls/hr ASDIR BRODIE Administration Labetalol HCl 400 mg 03/27/20 22:00 04/06/20 09:00 Normodyne - PO 400 mg BID BRODIE Administration Pantoprazole Sodium 40 mg 04/04/20 11:45 04/06/20 09:01 Protonix - PO 40 mg DAILY BRODIE Administration Polyethylene Glycol 17 gm 04/06/20 10:48 04/06/20 11:19 Miralax (For Daily Use) - PO 17 grams PRN PRN Administration CONSTIPATION Senna 2 tab 04/06/20 10:44 Senna - PO HS PRN CONSTIPATION Sodium Bicarbonate 1,300 mg 04/04/20 22:00 04/06/20 09:01 Sodium Bicarbonate - PO 1,300 mg BID BRODIE Administration Discontinued Medications Generic Name Dose Route Start Last Admin Trade Name Freq PRN Reason Stop Dose Admin Allopurinol 100 mg 04/01/20 13:00 04/01/20 13:50 Zyloprim - PO 100 mg DAILY BRODIE Administration Bisacodyl 10 mg 04/05/20 18:01 04/05/20 18:35 Dulcolax - PO 04/05/20 18:02 10 mg ONCE ONE Administration Calcitonin 240 unit 03/27/20 18:00 03/29/20 13:12 Miacalcin Injection - SQ Not Given DAILY [facility] Calcitonin 240 unit 04/01/20 10:00 04/05/20 09:44 Miacalcin Injection - IM 240 unit DAILY BRODIE Administration Calcitonin 240 unit 03/31/20 12:15 03/31/20 12:45 Miacalcin Injection - IM 03/31/20 12:16 240 unit ONCE ONE Administration Diphenhydramine HCl 25 mg 04/04/20 00:01 04/04/20 00:55 Benadryl - PO 04/04/20 00:02 25 mg ONCE ONE Administration Docusate Sodium 300 mg 04/05/20 22:00 04/05/20 22:53 Colace - PO 300 mg HS BRODIE Administration Furosemide 40 mg 03/31/20 11:50 03/31/20 12:45 Lasix Injection - IVPUSH 03/31/20 11:51 40 mg ONCE ONE Administration Furosemide 40 mg 04/05/20 17:31 04/05/20 17:42 Lasix - PO 04/05/20 17:32 40 mg ONCE ONE Administration Heparin Sodium (Porcine) 5,000 unit 03/27/20 22:00 03/29/20 09:36 Heparin - SQ 5,000 unit BID BRODIE Administration Sodium Chloride 1,000 mls @ 100 mls/hr 03/27/20 15:15 03/28/20 06:23 Normal Saline - IV 100 mls/hr ASDIR BORDIE Administration Lactulose 20 gm 04/05/20 23:30 04/06/20 00:00 Cephulac (Oral Use) PO 04/05/20 23:31 Not Given ONCE ONE Melatonin 10 mg 03/30/20 21:26 03/30/20 22:01 Melatonin PO 03/30/20 21:27 10 mg ONCE ONE Administration Polyethylene Glycol 17 gm 04/06/20 10:45 Miralax (For Daily Use) - PO PRN BRODIE Potassium Chloride 40 meq 04/02/20 11:28 04/02/20 11:52 Potassium Chloride Oral Liquid PO 04/02/20 11:29 40 meq ONCE ONE Administration Potassium Chloride 40 meq 04/03/20 09:00 04/03/20 10:56 Potassium Chloride Oral Liquid PO 04/03/20 09:01 40 meq ONCE ONE Administration Potassium Chloride 20 meq 04/04/20 19:09 04/04/20 20:05 K-Dur - PO 04/04/20 19:10 20 meq ONCE ONE Administration Sodium Bicarbonate 650 mg 04/02/20 22:00 04/02/20 21:28 Sodium Bicarbonate - PO 650 mg BID BRODIE Administration Sodium Bicarbonate 650 mg 04/03/20 14:00 04/04/20 16:24 Sodium Bicarbonate - PO 650 mg TID BRODIE Administration Sodium Bicarbonate 50 meq 04/03/20 09:00 04/03/20 10:56 Sodium Bicarbonate 8.4% - IV 04/03/20 09:01 50 meq ONCE ONE Administration Sodium Bicarbonate 650 mg 04/04/20 19:09 04/04/20 20:05 Sodium Bicarbonate - PO 04/04/20 19:10 650 mg ONCE ONE Administration - Objective Vital Signs: Vital Signs Temperature 98.3 F 04/06/20 08:39 Pulse Rate 68 04/06/20 08:39 Respiratory Rate 18 04/06/20 08:39 Blood Pressure 153/78 04/06/20 08:39 O2 Sat by Pulse Oximetry (%) 93 L 04/05/20 21:00 Labs: CBC, BMP 04/06/20 08:31 04/06/20 08:31 Assessment/Plan 74 y/o patient with HTN/HLD --- JAY/anemia, concern for myeloma On 10/07 NS at 75ml/hr. -- with gradually improving renal function Biopsy c/w myeloma IgG lambda( 20-100% plasma cells) hyperdiploidy+ trisomy 15, 7 and monosomy 13 skeletal survey negative Started dexamethasone 20mg IVPB daily x 4 days on 04/04 with protonix after rechecking uric acid in AM Will add velcade and cytoxan On calcitonin will consider zometa once renal function improves further COVID neg. 03/21 Repeat COVID and add velcade and cytoxan
[2020-04-06] MEDS: CALCITONIN - SALMON SYNTHETIC 400 UNIT/2 ML VIAL IM SCH ×2 (13:28→21:51)
--- NOTE | 2020-04-06 14:04 | PN ---
Physical Exam: SUBJECTIVE: Patient seen and examined. Pt. denies any acute complaints endorses a good appetite, that he feels better. Pt. states that his last bowel movement was 2 days ago. OBJECTIVE: Vital Signs Period Temp Pulse Resp BP Sys/Judd Pulse Ox Last 24 Hr 97.5 F-98.3 F 58-68 18-20 128-165/60-100 93-95 GENERAL: The patient is awake, alert, and fully oriented, in no acute distress. HEAD: Normal with no signs of trauma. EYES: Sclera anicteric, conjunctiva clear. No ptosis. ENT: Moist mucous membranes. NECK: Trachea midline, full range of motion, supple. LUNGS: Breath sounds equal, clear to auscultation bilaterally, no wheezes, no crackles, no accessory muscle use. HEART: Regular rate and rhythm, S1, S2 without murmur, rub or gallop. ABDOMEN: Soft, nontender, nondistended, normoactive bowel sounds EXTREMITIES: 2+ dorsal pedal pulses, warm, well-perfused, no calf tenderness, 1+ edema. NEUROLOGICAL: Normal speech, gait not observed. PSYCH: Anxious SKIN: Warm, dry, normal turgor Laboratory Results - last 24 hr 04/06/20 04/06/20 08:31 08:31 WBC 15.7 H RBC 2.53 L Hgb 8.3 L Hct 25.3 L MCV 100.3 H MCH 32.7 MCHC 32.6 RDW 20.3 H Plt Count 214 MPV 7.4 L Sodium 135 L Potassium 4.3 Chloride 107 Carbon Dioxide 17 L Anion Gap 12 BUN 78.9 H Creatinine 5.4 H Est GFR (CKD-EPI)AfAm 11.14 Est GFR (CKD-EPI)NonAf 9.61 Random Glucose 145 H Calcium 10.5 H Active Medications Generic Name Dose Route Start Last Admin Trade Name Freq PRN Reason Stop Dose Admin Allopurinol 150 mg 04/01/20 17:30 04/06/20 09:01 Zyloprim - PO 150 mg DAILY BRODIE Administration Amlodipine Besylate 10 mg 03/28/20 10:00 04/06/20 09:02 Norvasc - PO 10 mg DAILY BRODIE Administration Atorvastatin Calcium 10 mg 03/27/20 22:00 04/05/20 22:53 Lipitor - PO 10 mg HS BRODIE Administration Calcitonin 240 unit 04/05/20 22:00 04/06/20 13:28 Miacalcin Injection - IM 240 unit BID BRODIE Administration Cyanocobalamin 1,000 mcg 04/04/20 10:15 04/06/20 09:01 Vitamin B12 - PO 1,000 mcg DAILY BRODIE Administration Dexamethasone Sodium Phosphate 20 mg 04/04/20 11:45 04/06/20 08:59 Decadron Injection - IVPB 04/08/20 11:44 20 mg DAILY BRODIE Administration Docusate Sodium 100 mg 04/06/20 10:46 Colace - PO BID BRODIE Heparin Sodium (Porcine) 5,000 unit 04/04/20 14:02 04/06/20 08:59 Heparin - SQ 5,000 unit BID BRODIE Administration Hydralazine HCl 25 mg 03/27/20 22:00 04/06/20 13:31 Apresoline - PO 25 mg TID BRODIE Administration Sodium Chloride 1,000 mls @ 75 mls/hr 03/28/20 13:45 04/05/20 23:48 1/2 Normal Saline IV 75 mls/hr ASDIR BRODIE Administration Labetalol HCl 400 mg 03/27/20 22:00 04/06/20 09:00 Normodyne - PO 400 mg BID BRODIE Administration Pantoprazole Sodium 40 mg 04/04/20 11:45 04/06/20 09:01 Protonix - PO 40 mg DAILY BRODIE Administration Polyethylene Glycol 17 gm 04/06/20 10:48 04/06/20 11:19 Miralax (For Daily Use) - PO 17 grams PRN PRN Administration CONSTIPATION Senna 2 tab 04/06/20 10:44 Senna - PO HS PRN CONSTIPATION Sodium Bicarbonate 1,300 mg 04/04/20 22:00 04/06/20 09:01 Sodium Bicarbonate - PO 1,300 mg BID BRODIE Administration ASSESSMENT/PLAN: Pt. is a 74 y.o. M w/ PMHx. of HTN, HLD, BPH and CKD(Stage III) presents from his [employer] office for JAY on CKD, and hypercalcemia concerning for Multiple Myeloma. #Multiple Myeloma Preliminary flow c/w myeloma (IGG monoclonal expansion with elevated lambda and kappa light chains) Ratio is less 0.18, Albumin 3.2 May need to order B2 Microglobulin to complete staging workup, based on International Staging system Pt. is at least Stage 2(Hemoglobin less than 10 and Albumin less than 3.5) await final pathology Metastatic Series negative Continue dexamethasone 20mg IVPB daily x 4 days (Day 2/4) with Protonix Uric Acid 7.9, f/u Rpt. Add Velcade and cytoxan once final path is back. Anticipate starting Velcade on Friday #HTN #HLD #BPH #CKD c/w home medications per Primary team Nephrology consult appreciated for management #DVT Ppx. Hep SQ- ideally would be on Lovenox but Pt. is in acute renal failure Visit type - Emergency Visit Emergency Visit: Yes ED Registration Date: 03/27/20 Care time: The patient presented to the Emergency Department on the above date and was hospitalized for further evaluation of their emergent condition. - New Patient This patient is new to me today: Yes Date on this admission: 04/06/20 - Critical Care Critical Care patient: No - Discharge Referral Referred to [facility] Med P.C.: No ATTENDING PHYSICIAN STATEMENT I saw and evaluated the patient. I reviewed the resident's note and discussed the case with the resident. I agree with the resident's findings and plan as documented. SUBJECTIVE: OBJECTIVE: ASSESSMENT AND PLAN:
--- NOTE | 2020-04-06 15:14 | PN ---
Physical Exam: SUBJECTIVE: Patient seen and examined Patient is well and has no acute complaints. Patient states he feels better and was listening to music. Patient states his last bowel movement being on the 04 of april. OBJECTIVE: Vital Signs Period Temp Pulse Resp BP Sys/Judd Pulse Ox Last 24 Hr 97.5 F-98.3 F 64-68 18-20 128-165/60-100 93-95 GENERAL: The patient is awake, alert, and fully oriented, in no acute distress. HEAD: Normal with no signs of trauma. EYES: PERRL, extraocular movements intact, sclera anicteric, conjunctiva clear. No ptosis. ENT: Ears normal, nares patent, oropharynx clear without exudates, moist mucous membranes. NECK: Trachea midline, full range of motion, supple. LUNGS: Breath sounds equal, clear to auscultation bilaterally, no wheezes, no crackles, no accessory muscle use. HEART: Regular rate and rhythm, S1, S2 without murmur, rub or gallop. ABDOMEN: Soft, nontender, nondistended, normoactive bowel sounds, no guarding, no rebound, no hepatosplenomegaly, no masses. EXTREMITIES: 2+ pulses, warm, well-perfused, no edema. NEUROLOGICAL: Cranial nerves II through XII grossly intact. Normal speech, gait not observed. PSYCH: Normal mood, normal affect. SKIN: Warm, dry, normal turgor, no rashes or lesions noted Laboratory Results - last 24 hr 04/06/20 04/06/20 08:31 08:31 WBC 15.7 H RBC 2.53 L Hgb 8.3 L Hct 25.3 L MCV 100.3 H MCH 32.7 MCHC 32.6 RDW 20.3 H Plt Count 214 MPV 7.4 L Sodium 135 L Potassium 4.3 Chloride 107 Carbon Dioxide 17 L Anion Gap 12 BUN 78.9 H Creatinine 5.4 H Est GFR (CKD-EPI)AfAm 11.14 Est GFR (CKD-EPI)NonAf 9.61 Random Glucose 145 H Calcium 10.5 H Active Medications Generic Name Dose Route Start Last Admin Trade Name Freq PRN Reason Stop Dose Admin Allopurinol 150 mg 04/01/20 17:30 04/06/20 09:01 Zyloprim - PO 150 mg DAILY BRODIE Administration Amlodipine Besylate 10 mg 03/28/20 10:00 04/06/20 09:02 Norvasc - PO 10 mg DAILY BRODIE Administration Atorvastatin Calcium 10 mg 03/27/20 22:00 04/05/20 22:53 Lipitor - PO 10 mg HS BRODIE Administration Calcitonin 240 unit 04/05/20 22:00 04/06/20 13:28 Miacalcin Injection - IM 240 unit BID BRODIE Administration Cyanocobalamin 1,000 mcg 04/04/20 10:15 04/06/20 09:01 Vitamin B12 - PO 1,000 mcg DAILY BRODIE Administration Dexamethasone Sodium Phosphate 20 mg 04/04/20 11:45 04/06/20 08:59 Decadron Injection - IVPB 04/08/20 11:44 20 mg DAILY BRODIE Administration Docusate Sodium 100 mg 04/06/20 10:46 Colace - PO BID BRODIE Heparin Sodium (Porcine) 5,000 unit 04/04/20 14:02 04/06/20 08:59 Heparin - SQ 5,000 unit BID BRODIE Administration Hydralazine HCl 25 mg 03/27/20 22:00 04/06/20 13:31 Apresoline - PO 25 mg TID BRODIE Administration Sodium Chloride 1,000 mls @ 75 mls/hr 03/28/20 13:45 04/05/20 23:48 1/2 Normal Saline IV 75 mls/hr ASDIR BRODIE Administration Labetalol HCl 400 mg 03/27/20 22:00 04/06/20 09:00 Normodyne - PO 400 mg BID BRODIE Administration Pantoprazole Sodium 40 mg 04/04/20 11:45 04/06/20 09:01 Protonix - PO 40 mg DAILY BRODIE Administration Polyethylene Glycol 17 gm 04/06/20 10:48 04/06/20 11:19 Miralax (For Daily Use) - PO 17 grams PRN PRN Administration CONSTIPATION Senna 2 tab 04/06/20 10:44 Senna - PO HS PRN CONSTIPATION Sodium Bicarbonate 1,300 mg 04/04/20 22:00 04/06/20 09:01 Sodium Bicarbonate - PO 1,300 mg BID BRODIE Administration ASSESSMENT/PLAN: Apolinar Calvert is a 74 year old male with a PMHx of HTN/HLD/BPH and stage 3 ckd. Patient presented to the ED on the on the request of Dr. Blount. Patient was found to have JAY and abnormal labs - Cr at 5.9 up from 3.3 - with hypercalcemia and anemia. Patient has been stabilized and diagnosed for possible suspected multiple myeloma. 1. Rule out multiple myeloma - Flow cytometry with IGG monoclonal expansion - results show elevated lambda and kappa light chains - awaiting pathology from biopsy - awaiting skeletal survey - continue final dosage of steroids 40mg once - manage cytoxan and velcade once pathology has been finalized Visit type - Emergency Visit Emergency Visit: Yes ED Registration Date: 03/27/20 Care time: The patient presented to the Emergency Department on the above date and was hospitalized for further evaluation of their emergent condition. - New Patient This patient is new to me today: No - Critical Care Critical Care patient: No - Discharge Referral Referred to [facility] Med P.C.: Yes Physician Referral: Parker Wilson MD (Int Med) ATTENDING PHYSICIAN STATEMENT I saw and evaluated the patient. I reviewed the resident's note and discussed the case with the resident. I agree with the resident's findings and plan as documented. SUBJECTIVE: OBJECTIVE: ASSESSMENT AND PLAN:
--- NOTE | 2020-04-06 16:35 | PN ---
Teaching Attending Note Name of Resident: Nicanor Bui ATTENDING PHYSICIAN STATEMENT I saw and evaluated the patient. I reviewed the resident's note and discussed the case with the resident. I agree with the resident's findings and plan as documented. SUBJECTIVE: Feeling well, no complaints. No shortness of breath. OBJECTIVE: Afebrile, Hemodynamically Stable. Last Vital Signs Temp Pulse Resp BP Pulse Ox 97.6 F 57 L 18 132/75 95 04/06/20 15:09 04/06/20 15:04/06/20 15:04/06/20 15:04/06/20 09:00 Heart - S1, S2, RRR Lungs - clear to auscultation Abdomen - soft, non-tender. Bowel Sounds normal. Extremities - Edema +, no calf tenderness. Neuro - AAO x 3. Tone/Power normal. Laboratory Results - last 24 hr 04/06/20 04/06/20 08:31 08:31 WBC 15.7 H RBC 2.53 L Hgb 8.3 L Hct 25.3 L MCV 100.3 H MCH 32.7 MCHC 32.6 RDW 20.3 H Plt Count 214 MPV 7.4 L Sodium 135 L Potassium 4.3 Chloride 107 Carbon Dioxide 17 L Anion Gap 12 BUN 78.9 H Creatinine 5.4 H Est GFR (CKD-EPI)AfAm 11.14 Est GFR (CKD-EPI)NonAf 9.61 Random Glucose 145 H Calcium 10.5 H Current Medications Generic Name Dose Route Start Last Admin Trade Name Freq PRN Reason Stop Dose Admin Allopurinol 150 mg 04/01/20 17:30 04/06/20 09:01 Zyloprim - PO 150 mg DAILY BRODIE Administration Amlodipine Besylate 10 mg 03/28/20 10:00 04/06/20 09:02 Norvasc - PO 10 mg DAILY BRODIE Administration Atorvastatin Calcium 10 mg 03/27/20 22:00 04/05/20 22:53 Lipitor - PO 10 mg HS BRODIE Administration Calcitonin 240 unit 04/05/20 22:00 04/06/20 13:28 Miacalcin Injection - IM 240 unit BID BRODIE Administration Cyanocobalamin 1,000 mcg 04/04/20 10:15 04/06/20 09:01 Vitamin B12 - PO 1,000 mcg DAILY BRODIE Administration Dexamethasone Sodium Phosphate 20 mg 04/04/20 11:45 04/06/20 08:59 Decadron Injection - IVPB 04/08/20 11:44 20 mg DAILY BRODIE Administration Docusate Sodium 100 mg 04/06/20 10:46 Colace - PO BID BRODIE Heparin Sodium (Porcine) 5,000 unit 04/04/20 14:02 04/06/20 08:59 Heparin - SQ 5,000 unit BID BRODIE Administration Hydralazine HCl 25 mg 03/27/20 22:00 04/06/20 13:31 Apresoline - PO 25 mg TID BRODIE Administration Sodium Chloride 1,000 mls @ 75 mls/hr 03/28/20 13:45 04/05/20 23:48 1/2 Normal Saline IV 75 mls/hr ASDIR BRODIE Administration Labetalol HCl 400 mg 03/27/20 22:00 04/06/20 09:00 Normodyne - PO 400 mg BID BRODIE Administration Pantoprazole Sodium 40 mg 04/04/20 11:45 04/06/20 09:01 Protonix - PO 40 mg DAILY BRODIE Administration Polyethylene Glycol 17 gm 04/06/20 10:48 04/06/20 11:19 Miralax (For Daily Use) - PO 17 grams PRN PRN Administration CONSTIPATION Senna 2 tab 04/06/20 10:44 Senna - PO HS PRN CONSTIPATION Sodium Bicarbonate 1,300 mg 04/04/20 22:00 04/06/20 09:01 Sodium Bicarbonate - PO 1,300 mg BID BRODIE Administration Home Medications Medication Instructions Recorded Amlodipine Besylate [Norvasc -] 10 mg PO DAILY #30 tablet 09/08/19 Atorvastatin Ca [Lipitor] 10 mg PO HS #30 tablet 09/08/19 Labetalol HCl [Normodyne -] 400 mg PO BID #60 tablet 09/08/19 Tamsulosin HCl [Flomax -] 0.4 mg PO DAILY@0830 #30 cap.er.24h 09/08/19 Triamcinolone 0.1% Ointment 1 applic TP BID #1 each 09/08/19 [Aristocort 0.1% Ointment -] Fluocinonide 0.05% Cream [Lidex 1 applic TP DAILY #1 tube 11/01/19 0.05% Cream -] Hydralazine HCl 25 mg PO TID 30 Days #90 tablet 11/08/19 Labetalol HCl [Normodyne -] 200 mg PO TID 30 Days #90 tablet 11/08/19 ASSESSMENT AND PLAN: 74 year old male with history of CKD 3, HTN, HLD, BPH, currently undergoing outpatient workup for multiple myeloma, referred by his maintenance planner (Dr. Owen) for worsening renal failure, hypercalcemia, hyperphosphatemia. Renal US - findings suggestive of chronic renal disease. 1. JAY on CKD 3/Hypercalcemia/Macrocytic Anemia secondary to Multiple Myeloma M-spike, likely MM s/p BM Bx - initial Flow cytometry results suggestive of MM, awaiting final Bx report Started on 4 days IV steroid by Hematology/Oncology - Day 3 today - for eventual Velcade +/- Cytoxan once BM Bx confirms MM. Bicarb as per Nephrology IV Hydration/Calcitonin for Hypercalcemia as per Nephrology. Allopurinol for elevated Uric Acid sec to MM Skeletal Survey done, awaiting report. 2. Macrocytic Anemia sec to likely MM, MCV 100.9 H.H 8.3/25.6 up from 6.7/20.5 s/p 1 unit PRBCs. B12 levels borderline, supplemented. 3. HTN - Continue home Labetalol, Hydralazine, Amlodipine 4. BPH - continue Tamsulosin. 5. HLD - continue Atorvastatin. DVT Px - Heparin SQ BID
--- NOTE | 2020-04-06 16:58 | PN ---
Progress Note, Physician History of Present Illness: Pt seen and examined at bedside. He is awake and alert. He denies shortness of breath. - Current Medication List Current Medications: Active Medications Allopurinol (Zyloprim -) 150 mg PO DAILY [facility] Last Admin: 04/06/20 09:01 Dose: 150 mg Documented by: Amlodipine Besylate (Norvasc -) 10 mg PO DAILY [facility] Last Admin: 04/06/20 09:02 Dose: 10 mg Documented by: Atorvastatin Calcium (Lipitor -) 10 mg PO HS [facility] Last Admin: 04/05/20 22:53 Dose: 10 mg Documented by: Calcitonin (Miacalcin Injection -) 240 unit IM BID [facility] Last Admin: 04/06/20 13:28 Dose: 240 unit Documented by: Cyanocobalamin (Vitamin B12 -) 1,000 mcg PO DAILY [facility] Last Admin: 04/06/20 09:01 Dose: 1,000 mcg Documented by: Dexamethasone Sodium Phosphate (Decadron Injection -) 20 mg IVPB DAILY [facility] Stop: 04/08/20 11:44 Last Admin: 04/06/20 08:59 Dose: 20 mg Documented by: Docusate Sodium (Colace -) 100 mg PO BID [facility] Heparin Sodium (Porcine) (Heparin -) 5,000 unit SQ BID [facility] Last Admin: 04/06/20 08:59 Dose: 5,000 unit Documented by: Hydralazine HCl (Apresoline -) 25 mg PO TID [facility] Last Admin: 04/06/20 13:31 Dose: 25 mg Documented by: Sodium Chloride (1/2 Normal Saline) 1,000 mls @ 75 mls/hr IV ASDIR [facility] Last Admin: 04/05/20 23:48 Dose: 75 mls/hr Documented by: Labetalol HCl (Normodyne -) 400 mg PO BID [facility] Last Admin: 04/06/20 09:00 Dose: 400 mg Documented by: Pantoprazole Sodium (Protonix -) 40 mg PO DAILY [facility] Last Admin: 04/06/20 09:01 Dose: 40 mg Documented by: Polyethylene Glycol (Miralax (For Daily Use) -) 17 gm PO PRN PRN PRN Reason: CONSTIPATION Last Admin: 04/06/20 11:19 Dose: 17 grams Documented by: Senna (Senna -) 2 tab PO HS PRN PRN Reason: CONSTIPATION Sodium Bicarbonate (Sodium Bicarbonate -) 1,300 mg PO BID [facility] Last Admin: 04/06/20 09:01 Dose: 1,300 mg Documented by: - Objective Vital Signs: Vital Signs Temperature 97.6 F 04/06/20 15:09 Pulse Rate 57 L 04/06/20 15:09 Respiratory Rate 18 04/06/20 15:09 Blood Pressure 132/75 04/06/20 15:09 O2 Sat by Pulse Oximetry (%) 95 04/06/20 09:00 Constitutional: Yes: Calm Eyes: Yes: Conjunctiva Clear HENT: Yes: Atraumatic Neck: Yes: Supple Cardiovascular: Yes: S1, S2 Respiratory: Yes: CTA Bilaterally Gastrointestinal: Yes: Soft Genitourinary: Yes: WNL Musculoskeletal: Yes: WNL Edema: No Neurological: Yes: Oriented Psychiatric: Yes: Oriented Labs: CBC, BMP 04/06/20 08:31 04/06/20 08:31 INR, PTT INR 1.12 (0.83-1.09) H 03/28/20 07:00 Problem List - Problems (1) [id number] kidney injury Code(s): N17.9 - ACUTE KIDNEY FAILURE, UNSPECIFIED; N18.9 - CHRONIC KIDNEY DISEA SE, UNSPECIFIED Qualifiers: Chronic kidney disease stage: stage 3 (moderate) Assessment/Plan Current Medications Generic Name Dose Route Start Last Admin Trade Name Anette PRN Reason Stop Dose Admin Allopurinol 150 mg 04/01/20 17:30 04/06/20 09:01 Zyloprim - PO 150 mg DAILY [facility] Administration Amlodipine Besylate 10 mg 03/28/20 10:00 04/06/20 09:02 Norvasc - PO 10 mg DAILY [facility] Administration Atorvastatin Calcium 10 mg 03/27/20 22:00 04/05/20 22:53 Lipitor - PO 10 mg HS [facility] Administration Calcitonin 240 unit 04/05/20 22:00 04/06/20 13:28 Miacalcin Injection - IM 240 unit BID [facility] Administration Cyanocobalamin 1,000 mcg 04/04/20 10:15 04/06/20 09:01 Vitamin B12 - PO 1,000 mcg DAILY [facility] Administration Dexamethasone Sodium Phosphate 20 mg 04/04/20 11:45 04/06/20 08:59 Decadron Injection - IVPB 04/08/20 11:44 20 mg DAILY [facility] Administration Docusate Sodium 100 mg 04/06/20 10:46 Colace - PO BID [facility] Heparin Sodium (Porcine) 5,000 unit 04/04/20 14:02 04/06/20 08:59 Heparin - SQ 5,000 unit BID [facility] Administration Hydralazine HCl 25 mg 03/27/20 22:00 04/06/20 13:31 Apresoline - PO 25 mg TID [facility] Administration Sodium Chloride 1,000 mls @ 75 mls/hr 03/28/20 13:45 04/05/20 23:48 1/2 Normal Saline IV 75 mls/hr ASDIR [facility] Administration Labetalol HCl 400 mg 03/27/20 22:00 04/06/20 09:00 Normodyne - PO 400 mg BID [facility] Administration Pantoprazole Sodium 40 mg 04/04/20 11:45 04/06/20 09:01 Protonix - PO 40 mg DAILY [facility] Administration Polyethylene Glycol 17 gm 04/06/20 10:48 04/06/20 11:19 Miralax (For Daily Use) - PO 17 grams PRN PRN Administration CONSTIPATION Senna 2 tab 04/06/20 10:44 Senna - PO HS PRN CONSTIPATION Sodium Bicarbonate 1,300 mg 04/04/20 22:00 04/06/20 09:01 Sodium Bicarbonate - PO 1,300 mg BID [facility] Administration Impression 1. CKD 2. HTN 3. JAY 4. HLD 5. protienuria 6. m-spike - r/o myeloma 7. hypercalcemia Plan - cont fluids - lasix of he develops overload - con calcitionin - oncology input appreciated, follow biopsy - no indication for acute HD - cxr reviewed - monitor uric acid level
--- NOTE | 2020-04-06 17:01 | PATH ---
Surgical Pathology Report Patient Name: KEVAN KELLY Med. Rec. #: [id number] /Age/Gender: 1945 (Age: 74) / M Account: [id number] Location: [facility] MED/SURG Taken: 03/29/2020 Received: 03/29/2020 Reported: 04/06/2020 Physicians: Antwon Caban M.D. Smitha Mellacheruvu, M.D. Specimen(s) Received A: BONE MARROW BIOPSY B: BONE MARROW CLOT C: BONE MARROW ASPIRATION SMEARS D: BONE MARROW BLOOD Clinical History Hypercalcemia, Bence-Omer proteinuria, monocyte and eosinophil abnormalities, anemia Final Diagnosis BONE MARROW MORPHOLOGY ANALYSIS interpreted at [place], [place] ([id number], [id number]) shows the following: INTERPRETATION: BONE MARROW ASPIRATE SMEAR, CORE BIOPSY AND CLOT SECTION: -A plasma cell myeloma (IgG lambda). See comment. -Variably cellular marrow (40-90%) with maturing trilineage hematopoiesis Comment: The plasma cells comprise variable (~20% up to nearly 100% of marrow cellularity). Special stain for Congo red is negative. Correlation with pending cytogenetic/FISH for myeloma panel results, radiologic findings, and other relevant clinical and laboratory information is recommended. See Integrated report for additional details. FLOW CYTOMETRY performed and interpreted at [facility] shows the following: INTERPRETATION: BONE MARROW ASPIRATE: -A clonal IgG lambda plasma cell population (~29%), consistent with a plasma cell myeloma. Comment: Due to potential dilutional/lysis effects associated with flow cytometry, the reported plasma cell count is an underestimate. Therefore, correlation with a comprehensive bone marrow examination including morphologic plasma cell enumeration (including a core biopsy or clot section) will be necessary for further and definitive characterization. Phenotype: 1. A monoclonal IgG lambda plasma cell (CD38 bright) population is present. The plasma cells are positive for CD117 and small subset of CD56. 2. The B-cells (0.1% of total) appear polytypic See Integrated Oncology report for additional details. IMMUNOGLOBULIN (IGH) Gene Rearrangement Analysis performed and interpreted at [facility] shows the following: RESULTS: Clonal B-cell population detected. INTERPRETATION: POSITIVE for a clonal IgH gene rearrangement. COMMENT: Positive PCR results commonly indicate a clonal B-cell population present in this sample, and support a diagnosis of B-cell neoplasm. Correlation with clinical information, morphologic and immunophenotypic examination is recommended for a complete evaluation. This patient may be monitored by PCR for evaluating residual disease. This analysis can detect abnormal populations comprising >1-2% of the total cells present in the sample. See Integrated Oncology report for additional details. FLUORESCENCE IN-SITU HYBRIDIZATION performed and interpreted at [place], [place] shows the following: INTERPRETATION: Multiple Myeloma panel 1. Positive for trisomy 7 (77.0% of cells). Trisomy and tetrasomy are likely as a part of a hyperdiploid clone which is commonly seen in multiple myeloma (MM). Hyperdiploidy without other chromosome aberrations indicates a good prognosis. However, the finding of other chromosome abnormalities in this patient indicates disease progression. 2. Positive for monosomy 13 (90.0% of cells). Monosomy 13 is associated with an intermediate risk in MM. 3. Positive for trisomy 15 (50.0% of cells) and tetrasomy 15 (22.0% of cells). 4. Negative for a t(4;14)/FGFR3-IGH rearrangement. Three copies of FGFR3 and IGH were observed in 75.0% of cells. The clinical significance of gain of FGFR3 gene at 4p16 is unknown. Three copies of IGH likely indicate a 14q32 (IGH) translocation other than t(4;14). 5. Negative for a t(11;14)/CCND1-IGH rearrangement. Three copies of CCND1 and IGH were observed in 59.0% of cells. Three copies of CCND1 indicate trisomy 11. Three copies of IGH likely indicate a 14q32 (IGH) translocation other than t(11;14). 6. Negative for a t(14;16)/IGH-MAF rearrangement. Three copies of IGH were observed in 60.0% of cells, likely indicating a 14q32 (IGH) translocation other than t(14;16). A 14q32 (IGH) translocation other than t(4;14), t(11;14), or t(14;16) is associated with a variable risk. 7. Negative for extra copies of 1q21. 8. Negative for trisomy 9. 9. Negative for a deletion of TP53 on the short arm of chromosome 17 at p13. See [facility] On[facility] for additional details. The flow cytometry analysis result was discussed with Dr. Cameron on 04/03/2020. Electronically Signed Good Jovel M.D. Addendum Reported: 04/18/2020 Addendum Diagnosis Chromosome Analysis performed and interpreted at [facility], [place], [place] (Specimen #: [id number]) shows the following: RESULTS: 53,XY,+3,+4,+7,t(8;14)(q24.1;q32),+11,-12,-13,+15,+15,+18,+19,+21[4]/53,sl,- Y,del(1)(p13p32),+12[3]/46,XY[13] Abnormal karyotype, male INTERPRETATION: Four of the twenty mitotic cells examined were characterized by a translocation between the long arms of chromosomes 8 and 14, loss of one copy of chromosomes 12 and 13, gain of one copy of chromosomes 3, 4, 7, 11, 18, 19, and 21, and gain of two copies of chromosome 15. A sideline of three cells showed all the abnormalities of the stemline without the loss of chromosome 12, and further exhibited loss of the Y chromosome and a deletion of the short arm of chromosome 1. No abnormalities were evident in the remaining thirteen cells. Gains of chromosomes 3, 4, 7, 11, 15, 18, 19, and 21 are likely as a part of a hyperdiploid clone which is commonly seen in multiple myeloma (MM). Hyperdiploidy without other chromosome aberrations indicates a good prognosis. However, the finding of other chromosome abnormalities in this patient indicates disease progression. Monosomy 13 is associated with an intermediate risk in MM. The t(8;14) translocation, if resulting in MYC/IGH rearrangement, is considered to be associated with disease progression. Fluorescence in situ hybridization (FISH) for MYC/IGH rearrangement is recommended to ascertain if this t(8;14) translocation truly results in MYC/IGH rearrangement. Please note concurrent FISH results. See [facility] report for additional details (Specimen #: [id number]). Good Jovel M.D. Gross Description A. Received in formalin labeled "bone marrow biopsy," is a 1.1 x 0.9 x 0.2 cm aggregate of red-brown blood clot containing minimal bone fragments. The formalin is filtered and the specimen is entirely submitted in one cassette, following decalcification. B. Received in formalin labeled "bone marrow biopsy," is a 2.5 x 2.2 x 0.4 cm aggregate of red-brown blood clot. The specimen is submitted in toto in one cassette. C. Received are 9 bone marrow aspiration smear slides. D. Received are 2 green top tubes and 2 purple top tubes of blood which are sent to [facility]. 03/29/2020 [facility]/29/2020
[2020-04-06] MEDS: SODIUM CHLORIDE 0.45% 1,000 ML IV SCH (18:35)
[2020-04-06] MEDS: ATORVASTATIN CA 10 MG TABLET (FP) PO SCH (21:47)
[2020-04-06] MEDS: DOCUSATE SODIUM 100 MG CAPSULE (FP) PO SCH (21:47)
[2020-04-07] MEDS: SODIUM CHLORIDE 0.45% 1,000 ML IV SCH (00:33)
[2020-04-07] MEDS: hydrALAZINE HCL 25 MG TABLET (FP) PO SCH ×3 (05:17→22:26)
[2020-04-07 07:34] LABS: HEMATOCRIT 23.7 % (35.4-49); HEMOGLOBIN 7.8 GM/dL (11.7-16.9); MCH 33.4 pg (25.7-33.7); MCHC 33.1 g/dl (32.0-35.9); MEAN CELL VOLUME 100.9 fl (80-96); MEAN PLT VOLUME 7.3 fl (7.5-11.1); PLATELET COUNT 201 K/MM3 (134-434); RBC 2.35 M/mm3 (4.00-5.60); WHITE BLOOD COUNT 10.3 K/mm3 (4.0-10.0)
[2020-04-07 07:37] LABS: BILIRUBIN,TOTAL 0.4 mg/dL (0.2-1); BLOOD UREA NITROGEN 88.4 mg/dL (7-18); CREATININE 5.4 mg/dL (0.55-1.3); MAGNESIUM 2.4 mg/dL (1.8-2.4); POTASSIUM 3.7 mmol/L (3.5-5.1); TOT PROT 8.2 g/dl (6.4-8.2)
[2020-04-07] MEDS ORDERED: PT OWN MED DRAWER 7, Y5N ONE (08:49)
[2020-04-07] MEDS: ALLOPURINOL 100 MG TABLET (FP) PO SCH (09:20)
[2020-04-07] MEDS: SODIUM BICARBONATE 650 MG TABLET PO SCH ×2 (09:20→22:26)
[2020-04-07] MEDS: PANTOPRAZOLE 40 MG TABLET PO SCH (09:20)
[2020-04-07] MEDS: DEXAMETHASONE SOD PHOSPHATE 10 MG/1 ML VIAL IVPB SCH (09:21)
[2020-04-07] MEDS: DOCUSATE SODIUM 100 MG CAPSULE (FP) PO SCH ×2 (09:21→22:26)
[2020-04-07] MEDS: HEPARIN NA (PORCINE) 5,000 UNITS/ML 1ML VIAL SQ SCH ×2 (09:21→22:25)
[2020-04-07] MEDS: CALCITONIN - SALMON SYNTHETIC 400 UNIT/2 ML VIAL IM SCH (09:22)
[2020-04-07] MEDS: CYANOCOBALAMIN 1,000 MCG TABLET (FP) PO SCH (09:23)
[2020-04-07] MEDS: LABETALOL HCL 200 MG TABLET (FP) PO SCH ×2 (09:26→22:26)
[2020-04-07] MEDS: amLODIPine BESYLATE 10 MG TABLET (FP) PO SCH (09:26)
--- NOTE | 2020-04-07 11:34 | PN ---
Progress Note (short form) - Note Progress Note: PAtient seen and examined Discussed via business english instructor Denies specific complaints Last Vital Signs Temp Pulse Resp BP Pulse Ox 97.6 F 68 20 127/77 95 04/03/20 18:00 04/03/20 18:00 04/03/20 18:00 04/03/20 18:00 04/03/20 09:00 Last Vital Signs Temp Pulse Resp BP Pulse Ox 97.6 F 67 20 165/100 93 L 04/05/20 22:20 04/05/20 22:20 04/05/20 22:20 04/05/20 22:20 04/05/20 21:00 Last Vital Signs Temp Pulse Resp BP Pulse Ox 97.6 F 57 L 18 134/72 94 L 04/07/20 05:53 04/07/20 05:53 04/07/20 05:53 04/07/20 05:53 04/07/20 09:00 Cor: RSR, No murmurs, No gallops Lungs: Clear to P&A Abd: Soft, Normal bowel sounds, No organomegaly Ext:No significant edema LAbs/Meds reviewed A/P 74 y/o patient with HTN/HLD --- JAY/anemia, concern for myeloma On 10/07 NS at 75ml/hr. -- with gradually improving renal function Biopsy c/w myeloma IgG lambda( 20-100% plasma cells) hyperdiploidy+ trisomy 15, 7 and monosomy 13 skeletal survey negative Started dexamethasone 20mg IVPB daily x 4 days on 04/04 with protonix after rechecking uric acid in AM Will add velcade and cytoxan . consent obtained stop calcitonin to consider denosumab today given renal failure COVID neg. 03/21 recheck COVID status
[2020-04-07] MEDS: POLYETHYLENE GLYCOL 3350 119 GM BTL PO PRN (13:24)
[2020-04-07] MEDS ORDERED: DENOSUMAB 120 MG/1.7 ML VIAL SQ ONE (15:15)
--- NOTE | 2020-04-07 16:25 | PN ---
Progress Note, Physician History of Present Illness: Pt seen and examined at bedside. He is awake and appears comfortable. - Current Medication List Current Medications: Active Medications Allopurinol (Zyloprim -) 150 mg PO DAILY [facility] Last Admin: 04/07/20 09:20 Dose: 150 mg Documented by: Amlodipine Besylate (Norvasc -) 10 mg PO DAILY [facility] Last Admin: 04/07/20 09:26 Dose: 10 mg Documented by: Atorvastatin Calcium (Lipitor -) 10 mg PO HS [facility] Last Admin: 04/06/20 21:47 Dose: 10 mg Documented by: Cyanocobalamin (Vitamin B12 -) 1,000 mcg PO DAILY [facility] Last Admin: 04/07/20 09:23 Dose: 1,000 mcg Documented by: Dexamethasone Sodium Phosphate (Decadron Injection -) 20 mg IVPB DAILY [facility] Stop: 04/08/20 11:44 Last Admin: 04/07/20 09:21 Dose: 20 mg Documented by: Docusate Sodium (Colace -) 100 mg PO BID [facility] Last Admin: 04/07/20 09:21 Dose: 100 mg Documented by: Heparin Sodium (Porcine) (Heparin -) 5,000 unit SQ BID [facility] Last Admin: 04/07/20 09:21 Dose: 5,000 unit Documented by: Hydralazine HCl (Apresoline -) 25 mg PO TID [facility] Last Admin: 04/07/20 13:26 Dose: 25 mg Documented by: Sodium Chloride (1/2 Normal Saline) 1,000 mls @ 42 mls/hr IV ASDIR [facility] Last Admin: 04/07/20 00:33 Dose: 42 mls/hr Documented by: Labetalol HCl (Normodyne -) 400 mg PO BID [facility] Last Admin: 04/07/20 09:26 Dose: 400 mg Documented by: Pantoprazole Sodium (Protonix -) 40 mg PO DAILY [facility] Last Admin: 04/07/20 09:20 Dose: 40 mg Documented by: Polyethylene Glycol (Miralax (For Daily Use) -) 17 gm PO PRN PRN PRN Reason: CONSTIPATION Last Admin: 04/07/20 13:24 Dose: 17 grams Documented by: Senna (Senna -) 2 tab PO HS PRN PRN Reason: CONSTIPATION Last Admin: 04/06/20 21:47 Dose: 2 tab Documented by: Sodium Bicarbonate (Sodium Bicarbonate -) 1,300 mg PO BID [facility] Last Admin: 04/07/20 09:20 Dose: 1,300 mg Documented by: - Objective Vital Signs: Vital Signs Temperature 97.5 F L 04/07/20 14:15 Pulse Rate 57 L 04/07/20 14:15 Respiratory Rate 18 04/07/20 14:15 Blood Pressure 113/58 L 04/07/20 14:15 O2 Sat by Pulse Oximetry (%) 94 L 04/07/20 09:00 Constitutional: Yes: Calm Eyes: Yes: Conjunctiva Clear HENT: Yes: Atraumatic Cardiovascular: Yes: S1, S2 Respiratory: Yes: CTA Bilaterally Gastrointestinal: Yes: Soft Genitourinary: Yes: WNL Musculoskeletal: Yes: WNL Edema: No Integumentary: Yes: WNL Neurological: Yes: Oriented Psychiatric: Yes: Oriented Labs: CBC, BMP 04/07/20 06:30 04/07/20 06:00 INR, PTT INR 1.12 (0.83-1.09) H 03/28/20 07:00 Problem List - Problems (1) Qruds-[id number] kidney injury Code(s): N17.9 - ACUTE KIDNEY FAILURE, UNSPECIFIED; N18.9 - CHRONIC KIDNEY DISEASE, UNSPECIFIED Qualifiers: Chronic kidney disease stage: stage 3 (moderate) Assessment/Plan Current Medications Generic Name Dose Route Start Last Admin Trade Name Raffiq PRN Reason Stop Dose Admin Allopurinol 150 mg 04/01/20 17:30 04/07/20 09:20 Zyloprim - PO 150 mg DAILY [facility] Administration Amlodipine Besylate 10 mg 03/28/20 10:00 04/07/20 09:26 Norvasc - PO 10 mg DAILY [facility] Administration Atorvastatin Calcium 10 mg 03/27/20 22:00 04/06/20 21:47 Lipitor - PO 10 mg HS [facility] Administration Cyanocobalamin 1,000 mcg 04/04/20 10:15 04/07/20 09:23 Vitamin B12 - PO 1,000 mcg DAILY [facility] Administration Dexamethasone Sodium Phosphate 20 mg 04/04/20 11:45 04/07/20 09:21 Decadron Injection - IVPB 04/08/20 11:44 20 mg DAILY [facility] Administration Docusate Sodium 100 mg 04/06/20 10:46 04/07/20 09:21 Colace - PO 100 mg BID [facility] Administration Heparin Sodium (Porcine) 5,000 unit 04/04/20 14:02 04/07/20 09:21 Heparin - SQ 5,000 unit BID [facility] Administration Hydralazine HCl 25 mg 03/27/20 22:00 04/07/20 13:26 Apresoline - PO 25 mg TID [facility] Administration Sodium Chloride 1,000 mls @ 42 mls/hr 04/06/20 18:45 04/07/20 00:33 1/2 Normal Saline IV 42 mls/hr ASDIR [facility] Administration Labetalol HCl 400 mg 03/27/20 22:00 04/07/20 09:26 Normodyne - PO 400 mg BID [facility] Administration Pantoprazole Sodium 40 mg 04/04/20 11:45 04/07/20 09:20 Protonix - PO 40 mg DAILY [facility] Administration Polyethylene Glycol 17 gm 04/06/20 10:48 04/07/20 13:24 Miralax (For Daily Use) - PO 17 grams PRN PRN Administration CONSTIPATION Senna 2 tab 04/06/20 10:44 04/06/20 21:47 Senna - PO 2 tab HS PRN Administration CONSTIPATION Sodium Bicarbonate 1,300 mg 04/04/20 22:00 04/07/20 09:20 Sodium Bicarbonate - PO 1,300 mg BID [facility] Administration Impression 1. CKD 2. HTN 3. JAY 4. HLD 5. protienuria 6. multiple myeloma 7. hypercalcemia Plan - cont fluids - pt started on treatment for myeloma - monitor renal function for recovery - cont bicarb - hold off hd for now - oncology input appreciated
--- NOTE | 2020-04-07 16:40 | PN ---
Progress Note (short form) - Note Progress Note: SUBJECTIVE: Feeling well, no complaints. OBJECTIVE: Afebrile, Hemodynamically Stable. Comfortable. Last Vital Signs Temp Pulse Resp BP Pulse Ox 97.5 F L 57 L 18 113/58 L 94 L 04/07/20 14:15 04/07/20 14:15 04/07/20 14:15 04/07/20 14:15 04/07/20 09:00 Heart - S1, S2, RRR Lungs - clear to auscultation Abdomen - soft, non-tender. Bowel Sounds normal. Extremities - Edema +, venous stasis skin changes, no calf tenderness. Neuro - AAO x 3. Tone/Power normal. Laboratory Results - last 24 hr 04/04/20 04/07/20 04/07/20 11:18 06:00 06:30 WBC 10.3 H RBC 2.35 L Hgb 7.8 L Hct 23.7 L MCV 100.9 H MCH 33.4 MCHC 33.1 RDW 20.0 H Plt Count 201 MPV 7.3 L Sodium 136 Potassium 3.7 Chloride 106 Carbon Dioxide 17 L Anion Gap 13 BUN 88.4 H Creatinine 5.4 H Est GFR (CKD-EPI)AfAm 11.14 Est GFR (CKD-EPI)NonAf 9.61 Random Glucose 94 Calcium 10.0 Phosphorus 5.0 H Magnesium 2.4 Total Bilirubin 0.4 AST 59 H ALT 85 H Alkaline Phosphatase 68 Total Protein 8.2 Albumin 3.0 L Blood Type AB POSITIVE Antibody Screen Negative Crossmatch See Detail Current Medications Generic Name Dose Route Start Last Admin Trade Name Freq PRN Reason Stop Dose Admin Allopurinol 150 mg 04/01/20 17:30 04/07/20 09:20 Zyloprim - PO 150 mg DAILY [facility] Administration Amlodipine Besylate 10 mg 03/28/20 10:00 04/07/20 09:26 Norvasc - PO 10 mg DAILY [facility] Administration Atorvastatin Calcium 10 mg 03/27/20 22:00 04/06/20 21:47 Lipitor - PO 10 mg HS [facility] Administration Cyanocobalamin 1,000 mcg 04/04/20 10:15 04/07/20 09:23 Vitamin B12 - PO 1,000 mcg DAILY [facility] Administration Dexamethasone Sodium Phosphate 20 mg 04/04/20 11:45 04/07/20 09:21 Decadron Injection - IVPB 04/08/20 11:44 20 mg DAILY [facility] Administration Docusate Sodium 100 mg 04/06/20 10:46 04/07/20 09:21 Colace - PO 100 mg BID [facility] Administration Heparin Sodium (Porcine) 5,000 unit 04/04/20 14:02 04/07/20 09:21 Heparin - SQ 5,000 unit BID [facility] Administration Hydralazine HCl 25 mg 03/27/20 22:00 04/07/20 13:26 Apresoline - PO 25 mg TID [facility] Administration Sodium Chloride 1,000 mls @ 42 mls/hr 04/06/20 18:45 04/07/20 00:33 1/2 Normal Saline IV 42 mls/hr ASDIR [facility] Administration Labetalol HCl 400 mg 03/27/20 22:00 04/07/20 09:26 Normodyne - PO 400 mg BID [facility] Administration Pantoprazole Sodium 40 mg 04/04/20 11:45 04/07/20 09:20 Protonix - PO 40 mg DAILY [facility] Administration Polyethylene Glycol 17 gm 04/06/20 10:48 04/07/20 13:24 Miralax (For Daily Use) - PO 17 grams PRN PRN Administration CONSTIPATION Senna 2 tab 04/06/20 10:44 04/06/20 21:47 Senna - PO 2 tab HS PRN Administration CONSTIPATION Sodium Bicarbonate 1,300 mg 04/04/20 22:00 04/07/20 09:20 Sodium Bicarbonate - PO 1,300 mg BID [facility] Administration Home Medications Medication Instructions Recorded Amlodipine Besylate [Norvasc -] 10 mg PO DAILY #30 tablet 09/08/19 Atorvastatin Ca [Lipitor] 10 mg PO HS #30 tablet 09/08/19 Labetalol HCl [Normodyne -] 400 mg PO BID #60 tablet 09/08/19 Tamsulosin HCl [Flomax -] 0.4 mg PO DAILY@0830 #30 cap.er.24h 09/08/19 Triamcinolone 0.1% Ointment 1 applic TP BID #1 each 09/08/19 [Aristocort 0.1% Ointment -] Fluocinonide 0.05% Cream [Lidex 1 applic TP DAILY #1 tube 11/01/19 0.05% Cream -] Hydralazine HCl 25 mg PO TID 30 Days #90 tablet 11/08/19 Labetalol HCl [Normodyne -] 200 mg PO TID 30 Days #90 tablet 11/08/19 ASSESSMENT AND PLAN: 74 year old male with history of CKD 3, HTN, HLD, BPH, currently undergoing outpatient workup for multiple myeloma, referred by his building maintenance worker (Dr. Owen) for worsening renal failure, hypercalcemia, hyperphosphatemia. Renal US - findings suggestive of chronic renal disease. 1. JAY on CKD 3/Hypercalcemia/Macrocytic Anemia secondary to Multiple Myeloma M-spike, likely MM s/p BM Bx - MM IgG lambda, (20-100% plasma cells) Started on 4 days IV steroid by Hematology/Oncology - Day 4 today - for Velcade + Cytoxan as per Oncology. Bicarb as per Nephrology IV Hydration/Calcitonin for Hypercalcemia as per Nephrology. Allopurinol for elevated Uric Acid sec to MM Skeletal Survey negative. 2. Macrocytic Anemia sec to likely MM, MCV 100.9 H.H 7.8/23.7 up from 6.7/20.5 s/p 1 unit PRBCs. B12 levels borderline, supplemented. 3. HTN - Continue home Labetalol, Hydralazine, Amlodipine 4. BPH - continue Tamsulosin. 5. HLD - continue Atorvastatin. DVT Px - Heparin SQ BID Visit type - Emergency Visit Emergency Visit: Yes ED Registration Date: 03/27/20 Care time: The patient presented to the Emergency Department on the above date and was hospitalized for further evaluation of their emergent condition. - New Patient This patient is new to me today: No - Critical Care Critical Care patient: No - Discharge Referral Referred to [facility] Med P.C.: No
[2020-04-07] MEDS: ATORVASTATIN CA 10 MG TABLET (FP) PO SCH (22:26)
[2020-04-08] MEDS: SODIUM CHLORIDE 0.45% 1,000 ML IV SCH ×2 (00:31→23:39)
[2020-04-08] MEDS: hydrALAZINE HCL 25 MG TABLET (FP) PO SCH ×3 (05:57→21:50)
[2020-04-08 08:29] LABS: ALBUMIN 3.1 g/dl (3.4-5.0); BASO % 0.4 % (0-2.0); BILIRUBIN,TOTAL 0.3 mg/dL (0.2-1); BLOOD UREA NITROGEN 89.9 mg/dL (7-18); CALCIUM 9.6 mg/dL (8.5-10.1); CREATININE 5.6 mg/dL (0.55-1.3); EOS % 0.1 % (0-4.5); HEMATOCRIT 23.9 % (35.4-49); HEMOGLOBIN 7.9 GM/dL (11.7-16.9); LYMPH % 11.9 % (8-40); MCH 33.4 pg (25.7-33.7); MCHC 32.9 g/dl (32.0-35.9); MEAN CELL VOLUME 101.6 fl (80-96); MEAN PLT VOLUME 7.8 fl (7.5-11.1); MONO % 8.5 % (3.8-10.2); NEUT % 79.1 % (42.8-82.8); PLATELET COUNT 193 K/MM3 (134-434); RBC 2.36 M/mm3 (4.00-5.60); RDW 19.9 % (11.9-15.9); TOT PROT 8.3 g/dl (6.4-8.2); WHITE BLOOD COUNT 12.3 K/mm3 (4.0-10.0)
[2020-04-08] MEDS: DEXAMETHASONE SOD PHOSPHATE 10 MG/1 ML VIAL IVPB SCH (10:10)
[2020-04-08] MEDS: PANTOPRAZOLE 40 MG TABLET PO SCH (10:10)
[2020-04-08] MEDS: ALLOPURINOL 100 MG TABLET (FP) PO SCH (10:10)
[2020-04-08] MEDS: HEPARIN NA (PORCINE) 5,000 UNITS/ML 1ML VIAL SQ SCH ×2 (10:10→21:51)
[2020-04-08] MEDS: POLYETHYLENE GLYCOL 3350 119 GM BTL PO PRN (10:10)
[2020-04-08] MEDS: SODIUM BICARBONATE 650 MG TABLET PO SCH ×2 (10:10→21:50)
[2020-04-08] MEDS: DOCUSATE SODIUM 100 MG CAPSULE (FP) PO SCH ×3 (10:11→21:51)
[2020-04-08] MEDS: LABETALOL HCL 200 MG TABLET (FP) PO SCH ×2 (10:11→21:49)
[2020-04-08] MEDS: CYANOCOBALAMIN 1,000 MCG TABLET (FP) PO SCH (10:11)
[2020-04-08] MEDS: amLODIPine BESYLATE 10 MG TABLET (FP) PO SCH (10:11)
[2020-04-08] MEDS ORDERED: LORazepam 1 MG TABLET PO ONE ×2 (11:15→22:00)
[2020-04-08 13:32] LABS: ANISOCYTOSIS 1+; MACROCYTOSIS 1+; OVALOCYTE 1+; PLATELET ESTIMATE NORMAL; TEAR DROP CELLS 1+
--- NOTE | 2020-04-08 16:45 | PN ---
Progress Note (short form) - Note Progress Note: RENAL pt is awake and alert sitting up has some scruggs and chest discomfort Last Vital Signs Temp Pulse Resp BP Pulse Ox 97.3 F L 59 L 18 146/83 94 L 04/08/20 14:28 04/08/20 14:28 04/08/20 14:28 04/08/20 14:28 04/08/20 09:00 lungs clear cvs s1s2 rr abd soft ext no edema neuro a+ox3 CBC, BMP 04/08/20 06:35 04/08/20 06:35 Current Medications Generic Name Dose Route Start Last Admin Trade Name Freq PRN Reason Stop Dose Admin Allopurinol 150 mg 04/01/20 17:30 04/08/20 10:10 Zyloprim - PO 150 mg DAILY BRODIE Administration Amlodipine Besylate 10 mg 03/28/20 10:00 04/08/20 10:11 Norvasc - PO 10 mg DAILY BRODIE Administration Atorvastatin Calcium 10 mg 03/27/20 22:00 04/07/20 22:26 Lipitor - PO 10 mg HS BRODIE Administration Cyanocobalamin 1,000 mcg 04/04/20 10:15 04/08/20 10:11 Vitamin B12 - PO 1,000 mcg DAILY BRODIE Administration Docusate Sodium 100 mg 04/06/20 10:46 04/08/20 10:11 Colace - PO 100 mg BID BRODIE Administration Docusate Sodium 100 mg 04/08/20 11:30 04/08/20 13:37 Colace - PO Not Given DAILY BRODIE Heparin Sodium (Porcine) 5,000 unit 04/04/20 14:02 04/08/20 10:10 Heparin - SQ 5,000 unit BID BRODIE Administration Hydralazine HCl 25 mg 03/27/20 22:00 04/08/20 14:16 Apresoline - PO 25 mg TID BRODIE Administration Sodium Chloride 1,000 mls @ 42 mls/hr 04/06/20 18:45 04/08/20 00:31 1/2 Normal Saline IV 42 mls/hr ASDIR BRODIE Administration Labetalol HCl 400 mg 03/27/20 22:00 04/08/20 10:11 Normodyne - PO 400 mg BID BRODIE Administration Pantoprazole Sodium 40 mg 04/04/20 11:45 04/08/20 10:10 Protonix - PO 40 mg DAILY BRODIE Administration Polyethylene Glycol 17 gm 04/06/20 10:48 04/08/20 10:10 Miralax (For Daily Use) - PO 17 grams PRN PRN Administration CONSTIPATION Senna 2 tab 04/06/20 10:44 04/06/20 21:47 Senna - PO 2 tab HS PRN Administration CONSTIPATION Sodium Bicarbonate 1,300 mg 04/04/20 22:00 04/08/20 10:10 Sodium Bicarbonate - PO 1,300 mg BID BRODIE Administration Impression 1. CKD- renal function was poor dating back to june last year and his creat was already over 3 2. HTN 3. JAY 4. HLD 5. protienuria 6. m-spike - myeloma 7. hypercalcemia Plan - cont fluids - lasix if he develops overload- - no indication for acute HD- but will likely need chronic hd - monitor uric acid level -pt says he had a kidney biopsy before, will need results MV
--- NOTE | 2020-04-08 16:47 | PN ---
Teaching Attending Note Name of Resident: Nicanor Bui ATTENDING PHYSICIAN STATEMENT I saw and evaluated the patient. I reviewed the resident's note and discussed the case with the resident. I agree with the resident's findings and plan as documented. SUBJECTIVE: Feeling well, no complaints. OBJECTIVE: Afebrile, Hemodynamically Stable. Comfortable. Last Vital Signs Temp Pulse Resp BP Pulse Ox 97.3 F L 59 L 18 146/83 94 L 04/08/20 14:28 04/08/20 14:28 04/08/20 14:28 04/08/20 14:28 04/08/20 09:00 Heart - S1, S2, RRR Lungs - clear to auscultation Abdomen - soft, non-tender. Bowel Sounds normal. Extremities - Edema +, venous stasis skin changes, no calf tenderness. Neuro - AAO x 3. Tone/Power normal. Laboratory Results - last 24 hr 04/08/20 04/08/20 06:35 06:35 WBC 12.3 H RBC 2.36 L Hgb 7.9 L Hct 23.9 L MCV 101.6 H MCH 33.4 MCHC 32.9 RDW 19.9 H Plt Count 193 MPV 7.8 Absolute Neuts (auto) 9.7 H Neutrophils % 79.1 D Neutrophils % (Manual) 76.8 Band Neutrophils % 4.0 Lymphocytes % 11.9 Lymphocytes % (Manual) 8.1 Monocytes % 8.5 Monocytes % (Manual) 8 Eosinophils % 0.1 D Eosinophils % (Manual) 0.0 D Basophils % 0.4 Basophils % (Manual) 0.0 Myelocytes % (Man) 2 Promyelocytes % (Man) 0 Blast Cells % (Manual) 0 Nucleated RBC % 8 H Metamyelocytes 0 D Hypochromia 0 Platelet Estimate Normal Polychromasia 1+ Poikilocytosis 1+ Anisocytosis 1+ Microcytosis 1+ Macrocytosis 1+ Spherocytes 1+ Tear Drop Cells 1+ Ovalocytes 1+ [place] Cells 1+ Acanthocytes (Spur) 1+ Sodium 136 Potassium 4.0 Chloride 107 Carbon Dioxide 19 L Anion Gap 11 BUN 89.9 H Creatinine 5.6 H Est GFR (CKD-EPI)AfAm 10.66 Est GFR (CKD-EPI)NonAf 9.20 Random Glucose 141 H Uric Acid 7.0 Calcium 9.6 Total Bilirubin 0.3 AST 57 H ALT 112 H Alkaline Phosphatase 69 LD Total 213 Total Protein 8.3 H Albumin 3.1 L Current Medications Generic Name Dose Route Start Last Admin Trade Name Freq PRN Reason Stop Dose Admin Allopurinol 150 mg 04/01/20 17:30 04/08/20 10:10 Zyloprim - PO 150 mg DAILY BRODIE Administration Amlodipine Besylate 10 mg 03/28/20 10:00 04/08/20 10:11 Norvasc - PO 10 mg DAILY BRODIE Administration Atorvastatin Calcium 10 mg 03/27/20 22:00 04/07/20 22:26 Lipitor - PO 10 mg HS BRODIE Administration Cyanocobalamin 1,000 mcg 04/04/20 10:15 04/08/20 10:11 Vitamin B12 - PO 1,000 mcg DAILY BRODIE Administration Docusate Sodium 100 mg 04/06/20 10:46 04/08/20 10:11 Colace - PO 100 mg BID BRODIE Administration Docusate Sodium 100 mg 04/08/20 11:30 04/08/20 13:37 Colace - PO Not Given DAILY BRODIE Heparin Sodium (Porcine) 5,000 unit 04/04/20 14:02 04/08/20 10:10 Heparin - SQ 5,000 unit BID BRDOIE Administration Hydralazine HCl 25 mg 03/27/20 22:00 04/08/20 14:16 Apresoline - PO 25 mg TID BRODIE Administration Sodium Chloride 1,000 mls @ 42 mls/hr 04/06/20 18:45 04/08/20 00:31 1/2 Normal Saline IV 42 mls/hr ASDIR BRODIE Administration Labetalol HCl 400 mg 03/27/20 22:00 04/08/20 10:11 Normodyne - PO 400 mg BID BRODIE Administration Pantoprazole Sodium 40 mg 04/04/20 11:45 04/08/20 10:10 Protonix - PO 40 mg DAILY BRODIE Administration Polyethylene Glycol 17 gm 04/06/20 10:48 04/08/20 10:10 Miralax (For Daily Use) - PO 17 grams PRN PRN Administration CONSTIPATION Senna 2 tab 04/06/20 10:44 04/06/20 21:47 Senna - PO 2 tab HS PRN Administration CONSTIPATION Sodium Bicarbonate 1,300 mg 04/04/20 22:00 04/08/20 10:10 Sodium Bicarbonate - PO 1,300 mg BID BRODIE Administration Home Medications Medication Instructions Recorded Amlodipine Besylate [Norvasc -] 10 mg PO DAILY #30 tablet 09/08/19 Atorvastatin Ca [Lipitor] 10 mg PO HS #30 tablet 09/08/19 Labetalol HCl [Normodyne -] 400 mg PO BID #60 tablet 09/08/19 Tamsulosin HCl [Flomax -] 0.4 mg PO DAILY@0830 #30 cap.er.24h 09/08/19 Triamcinolone 0.1% Ointment 1 applic TP BID #1 each 09/08/19 [Aristocort 0.1% Ointment -] Fluocinonide 0.05% Cream [Lidex 1 applic TP DAILY #1 tube 11/01/19 0.05% Cream -] Hydralazine HCl 25 mg PO TID 30 Days #90 tablet 11/08/19 Labetalol HCl [Normodyne -] 200 mg PO TID 30 Days #90 tablet 11/08/19 ASSESSMENT AND PLAN: 74 year old male with history of CKD 3, HTN, HLD, BPH, currently undergoing outpatient workup for multiple myeloma, referred by his facility assistant (Dr. Owen) for worsening renal failure, hypercalcemia, hyperphosphatemia. Renal US - findings suggestive of chronic renal disease. 1. JAY on CKD 3/Hypercalcemia/Macrocytic Anemia secondary to Multiple Myeloma M-spike, likely MM s/p BM Bx - MM IgG lambda, (20-100% plasma cells) Started on IV steroid by Hematology/Oncology - received Denosumab - for Velcade + Cytoxan once COVID returns negative as per Oncology (discussed with Dr. Mccurdy). Bicarb as per Nephrology IV Hydration for Hypercalcemia as per Nephrology. s/p Calcitonin. Allopurinol for elevated Uric Acid sec to MM Skeletal Survey negative. Further management as per Oncology. Monitor LFTs. 2. Macrocytic Anemia sec to likely MM, MCV 101.6 H.H 7.9/23.7 up from 6.7/20.5 s/p 1 unit PRBCs. B12 levels borderline, supplemented. 3. HTN - Continue home Labetalol, Hydralazine, Amlodipine 4. BPH - continue Tamsulosin. 5. HLD - continue Atorvastatin. DVT Px - Heparin SQ BID
--- NOTE | 2020-04-08 21:18 | PN.HO ---
Progress Note (short form) - Note Progress Note: PAtient seen and examined Discussed via outreach professional Denies specific complaints Last Vital Signs Temp Pulse Resp BP Pulse Ox 97.6 F 68 20 127/77 95 04/03/20 18:00 04/03/20 18:00 04/03/20 18:00 04/03/20 18:00 04/03/20 09:00 Last Vital Signs Temp Pulse Resp BP Pulse Ox 97.6 F 67 20 165/100 93 L 04/05/20 22:20 04/05/20 22:20 04/05/20 22:20 04/05/20 22:20 04/05/20 21:00 Last Vital Signs Temp Pulse Resp BP Pulse Ox 97.6 F 57 L 18 134/72 94 L 04/07/20 05:53 04/07/20 05:53 04/07/20 05:53 04/07/20 05:53 04/07/20 09:00 Last Vital Signs Temp Pulse Resp BP Pulse Ox 97.4 F L 56 L 21 H 125/65 94 L 04/08/20 20:40 04/08/20 20:40 04/08/20 20:40 04/08/20 20:40 04/08/20 09:00 Cor: RSR, No murmurs, No gallops Lungs: Clear to P&A Abd: Soft, Normal bowel sounds, No organomegaly Ext:No significant edema LAbs/Meds reviewed A/P 74 y/o patient with HTN/HLD --- JAY/anemia, concern for myeloma On 10/07 NS at 75ml/hr. Biopsy c/w myeloma IgG lambda( 20-100% plasma cells) hyperdiploidy+ trisomy 15, 7 and monosomy 13 skeletal survey negative Started dexamethasone 20mg IVPB daily x 4 days on 04/04 with protonix Will add velcade and cytoxan . consent obtained stop calcitonin s/p denosumab 04/07 constipation: increase miralax to bid COVID neg. 03/21 recheck COVID status Discussed with nephrology -- given longstanding renal mpairment unsure of degree of recovery patient will have
[2020-04-08] MEDS: ATORVASTATIN CA 10 MG TABLET (FP) PO SCH (21:49)
[2020-04-08] MEDS: POLYETHYLENE GLYCOL 3350 119 GM BTL PO SCH (21:50)
[2020-04-08] MEDS: SENNOSIDES 8.6MG TABLET (FP) PO SCH (21:50)
[2020-04-09] MEDS: hydrALAZINE HCL 25 MG TABLET (FP) PO SCH ×3 (05:26→21:00)
[2020-04-09] MEDS: SODIUM CHLORIDE 0.45% 1,000 ML IV SCH (09:43)
[2020-04-09] MEDS: SODIUM BICARBONATE 650 MG TABLET PO SCH ×2 (09:44→21:01)
[2020-04-09] MEDS: HEPARIN NA (PORCINE) 5,000 UNITS/ML 1ML VIAL SQ SCH ×2 (09:44→20:59)
[2020-04-09] MEDS: CYANOCOBALAMIN 1,000 MCG TABLET (FP) PO SCH (09:44)
[2020-04-09] MEDS: ALLOPURINOL 100 MG TABLET (FP) PO SCH (09:45)
[2020-04-09] MEDS: PANTOPRAZOLE 40 MG TABLET PO SCH (09:45)
[2020-04-09] MEDS: DOCUSATE SODIUM 100 MG CAPSULE (FP) PO SCH ×3 (09:45→21:00)
[2020-04-09] MEDS: amLODIPine BESYLATE 10 MG TABLET (FP) PO SCH (09:45)
[2020-04-09] MEDS: POLYETHYLENE GLYCOL 3350 119 GM BTL PO SCH ×2 (09:46→21:03)
[2020-04-09] MEDS: LABETALOL HCL 200 MG TABLET (FP) PO SCH ×2 (10:13→21:00)
[2020-04-09 11:45] LABS: BASO % 0.3 % (0-2.0); EOS % 0.1 % (0-4.5); HEMATOCRIT 24.2 % (35.4-49); HEMOGLOBIN 7.9 GM/dL (11.7-16.9); LYMPH % 10.3 % (8-40); MCH 33.3 pg (25.7-33.7); MCHC 32.7 g/dl (32.0-35.9); MEAN CELL VOLUME 102.1 fl (80-96); MEAN PLT VOLUME 7.6 fl (7.5-11.1); MONO % 10.5 % (3.8-10.2); NEUT % 78.8 % (42.8-82.8); PLATELET COUNT 182 K/MM3 (134-434); RBC 2.37 M/mm3 (4.00-5.60); RDW 21.1 % (11.9-15.9); WHITE BLOOD COUNT 11.8 K/mm3 (4.0-10.0)
--- NOTE | 2020-04-09 11:50 | PN ---
Progress Note (short form) - Note Progress Note: RENAL pt is awake and alert sitting up scruggs on exertion Last Vital Signs Temp Pulse Resp BP Pulse Ox 97.7 F 55 L 20 123/57 L 93 L 04/09/20 06:00 04/09/20 06:00 04/09/20 06:00 04/09/20 06:00 04/09/20 09:00 has jvd lungs clear cvs s1s2 rr abd soft ext trace edema neuro a+ox3 CBC, BMP 04/09/20 11:20 Current Medications Generic Name Dose Route Start Last Admin Trade Name [place] PRN Reason Stop Dose Admin Allopurinol 150 mg 04/01/20 17:30 04/09/20 09:45 Zyloprim - PO 150 mg DAILY BRODIE Administration Amlodipine Besylate 10 mg 03/28/20 10:00 04/09/20 09:45 Norvasc - PO 10 mg DAILY BRODIE Administration Atorvastatin Calcium 10 mg 03/27/20 22:00 04/08/20 21:49 Lipitor - PO 10 mg HS BRODIE Administration Cyanocobalamin 1,000 mcg 04/04/20 10:15 04/09/20 09:44 Vitamin B12 - PO 1,000 mcg DAILY BRODIE Administration Docusate Sodium 100 mg 04/06/20 10:46 04/09/20 09:45 Colace - PO 100 mg BID BRODIE Administration Docusate Sodium 100 mg 04/08/20 11:30 04/09/20 09:46 Colace - PO Not Given DAILY BRODIE Heparin Sodium (Porcine) 5,000 unit 04/04/20 14:02 04/09/20 09:44 Heparin - SQ 5,000 unit BID BRODIE Administration Hydralazine HCl 25 mg 03/27/20 22:00 04/09/20 05:26 Apresoline - PO 25 mg TID BRODIE Administration Sodium Chloride 1,000 mls @ 42 mls/hr 04/06/20 18:45 04/09/20 09:43 1/2 Normal Saline IV 42 mls/hr ASDIR BRODIE Administration Labetalol HCl 400 mg 03/27/20 22:00 04/09/20 10:13 Normodyne - PO Not Given BID BRODIE Pantoprazole Sodium 40 mg 04/04/20 11:45 04/09/20 09:45 Protonix - PO 40 mg DAILY BRODIE Administration Polyethylene Glycol 17 gm 04/08/20 22:00 04/09/20 09:46 Miralax (For Daily Use) - PO 17 gm BID BRODIE Administration Senna 2 tab 04/08/20 22:00 04/08/20 21:50 Senna - PO 2 tab HS BRODIE Administration Sodium Bicarbonate 1,300 mg 04/04/20 22:00 04/09/20 09:44 Sodium Bicarbonate - PO 1,300 mg BID BRODIE Administration Impression 1. CKD- renal function was poor dating back to june last year and his creat was already over 3 2. HTN 3. JAY 4. HLD 5. protienuria 6. m-spike - myeloma 7. hypercalcemia 8 hs some fluid overload Plan - dc fluids - would give a dose of lasix and if not improved will need hd by tomorrow - monitor uric acid level - pt says he had a kidney biopsy before. He may have been confused. It was probably the bone marrow - echo MV
[2020-04-09 12:13] LABS: ANISOCYTOSIS 2+; MACROCYTOSIS 2+; PLATELET ESTIMATE NORMAL
[2020-04-09] MEDS ORDERED: FUROSEMIDE 40 MG/4 ML INJECTABLE VIAL IVPUSH ONE (12:15)
[2020-04-09 12:23] LABS: ALBUMIN 3.2 g/dl (3.4-5.0); BILIRUBIN,TOTAL 0.3 mg/dL (0.2-1); CALCIUM 9.5 mg/dL (8.5-10.1); CREATININE 5.4 mg/dL (0.55-1.3); MAGNESIUM 2.6 mg/dL (1.8-2.4); PHOSPHOROUS 5.6 mg/dL (2.5-4.9); POTASSIUM 3.8 mmol/L (3.5-5.1); TOT PROT 8.3 g/dl (6.4-8.2)
[2020-04-09 12:33] LABS: BLOOD UREA NITROGEN 105.3 mg/dL (7-18)
--- NOTE | 2020-04-09 13:26 | PN ---
Progress Note (short form) - Note Progress Note: SUBJECTIVE: Feeling well, no complaints. OBJECTIVE: Afebrile, Hemodynamically Stable. Comfortable but now needing supplemental O2. SpO2 93-98% on 3L via NC, desaturated to 87% on RA. Last Vital Signs Temp Pulse Resp BP Pulse Ox 97.7 F 55 L 20 123/57 L 93 L 04/09/20 06:00 04/09/20 06:00 04/09/20 06:00 04/09/20 06:00 04/09/20 09:00 Heart - S1, S2, RRR Lungs - few basal crackles. Abdomen - soft, non-tender. Bowel Sounds normal. Extremities - Edema +, venous stasis skin changes, no calf tenderness. Neuro - AAO x 3. Tone/Power normal. Laboratory Results - last 24 hr 04/06/20 04/08/20 04/09/20 21:40 06:35 11:20 WBC 11.8 H RBC 2.37 L Hgb 7.9 L Hct 24.2 L MCV 102.1 H MCH 33.3 MCHC 32.7 RDW 21.1 H Plt Count 182 MPV 7.6 Absolute Neuts (auto) 9.3 H Neutrophils % 78.8 Neutrophils % (Manual) 76.8 82.3 Band Neutrophils % 4.0 0.0 Lymphocytes % 10.3 Lymphocytes % (Manual) 8.1 8.3 Monocytes % 10.5 H Monocytes % (Manual) 8 9 Eosinophils % 0.1 Eosinophils % (Manual) 0.0 D 0.0 Basophils % 0.3 Basophils % (Manual) 0.0 0.0 Myelocytes % (Man) 2 0 D Promyelocytes % (Man) 0 0 Blast Cells % (Manual) 0 0 Nucleated RBC % 8 H 2 H Metamyelocytes 0 D 0 Hypochromia 0 0 Platelet Estimate Normal Normal Polychromasia 1+ 1+ Poikilocytosis 1+ 0 Anisocytosis 1+ 2+ Microcytosis 1+ Macrocytosis 1+ 2+ Spherocytes 1+ Tear Drop Cells 1+ Ovalocytes 1+ Nu Cells 1+ Acanthocytes (Spur) 1+ Sodium Potassium Chloride Carbon Dioxide Anion Gap BUN Creatinine Est GFR (CKD-EPI)AfAm Est GFR (CKD-EPI)NonAf Random Glucose Calcium Phosphorus Magnesium Total Bilirubin AST ALT Alkaline Phosphatase Total Protein Albumin COVID-19 (KATIE) Not detected 04/09/20 11:20 WBC RBC Hgb Hct MCV MCH MCHC RDW Plt Count MPV Absolute Neuts (auto) Neutrophils % Neutrophils % (Manual) Band Neutrophils % Lymphocytes % Lymphocytes % (Manual) Monocytes % Monocytes % (Manual) Eosinophils % Eosinophils % (Manual) Basophils % Basophils % (Manual) Myelocytes % (Man) Promyelocytes % (Man) Blast Cells % (Manual) Nucleated RBC % Metamyelocytes Hypochromia Platelet Estimate Polychromasia Poikilocytosis Anisocytosis Microcytosis Macrocytosis Spherocytes Tear Drop Cells Ovalocytes Nu Cells Acanthocytes (Spur) Sodium 137 Potassium 3.8 Chloride 105 Carbon Dioxide 15 L Anion Gap 17 H BUN 105.3 H* Creatinine 5.4 H Est GFR (CKD-EPI)AfAm 11.14 Est GFR (CKD-EPI)NonAf 9.61 Random Glucose 153 H Calcium 9.5 Phosphorus 5.6 H Magnesium 2.6 H Total Bilirubin 0.3 AST 55 H ALT 156 H Alkaline Phosphatase 71 Total Protein 8.3 H Albumin 3.2 L COVID-19 (KATIE) Current Medications Generic Name Dose Route Start Last Admin Trade Name Freq PRN Reason Stop Dose Admin Allopurinol 150 mg 04/01/20 17:30 04/09/20 09:45 Zyloprim - PO 150 mg DAILY BRODIE Administration Amlodipine Besylate 10 mg 03/28/20 10:00 04/09/20 09:45 Norvasc - PO 10 mg DAILY BRODIE Administration Atorvastatin Calcium 10 mg 03/27/20 22:00 04/08/20 21:49 Lipitor - PO 10 mg HS BRODIE Administration Cyanocobalamin 1,000 mcg 04/04/20 10:15 04/09/20 09:44 Vitamin B12 - PO 1,000 mcg DAILY BRODIE Administration Docusate Sodium 100 mg 04/06/20 10:46 04/09/20 09:45 Colace - PO 100 mg BID BRODIE Administration Docusate Sodium 100 mg 04/08/20 11:30 04/09/20 09:46 Colace - PO Not Given DAILY BRODIE Heparin Sodium (Porcine) 5,000 unit 04/04/20 14:02 04/09/20 09:44 Heparin - SQ 5,000 unit BID BRODIE Administration Hydralazine HCl 25 mg 03/27/20 22:00 04/09/20 05:26 Apresoline - PO 25 mg TID BRODIE Administration Labetalol HCl 400 mg 03/27/20 22:00 04/09/20 10:13 Normodyne - PO Not Given BID BRODIE Pantoprazole Sodium 40 mg 04/04/20 11:45 04/09/20 09:45 Protonix - PO 40 mg DAILY BRODIE Administration Polyethylene Glycol 17 gm 04/08/20 22:00 04/09/20 09:46 Miralax (For Daily Use) - PO 17 gm BID BRODIE Administration Senna 2 tab 04/08/20 22:00 04/08/20 21:50 Senna - PO 2 tab HS BRODIE Administration Sodium Bicarbonate 1,300 mg 04/04/20 22:00 04/09/20 09:44 Sodium Bicarbonate - PO 1,300 mg BID BRODIE Administration Home Medications Medication Instructions Recorded Amlodipine Besylate [Norvasc -] 10 mg PO DAILY #30 tablet 09/08/19 Atorvastatin Ca [Lipitor] 10 mg PO HS #30 tablet 09/08/19 Labetalol HCl [Normodyne -] 400 mg PO BID #60 tablet 09/08/19 Tamsulosin HCl [Flomax -] 0.4 mg PO DAILY@0830 #30 cap.er.24h 09/08/19 Triamcinolone 0.1% Ointment 1 applic TP BID #1 each 09/08/19 [Aristocort 0.1% Ointment -] Fluocinonide 0.05% Cream [Lidex 1 applic TP DAILY #1 tube 11/01/19 0.05% Cream -] Hydralazine HCl 25 mg PO TID 30 Days #90 tablet 11/08/19 Labetalol HCl [Normodyne -] 200 mg PO TID 30 Days #90 tablet 11/08/19 ASSESSMENT AND PLAN: 74 year old male with history of CKD 3, HTN, HLD, BPH, currently undergoing o utpatient workup for multiple myeloma, referred by his engine repairer (Dr. Owen) for worsening renal failure, hypercalcemia, hyperphosphatemia. Renal US - findings suggestive of chronic renal disease. 1. JAY on CKD 3/Hypercalcemia/Macrocytic Anemia secondary to Multiple Myeloma M-spike, likely MM s/p BM Bx - MM IgG lambda, (20-100% plasma cells) Received IV steroid x 4 days by Hematology/Oncology - received Denosumab - for Velcade + Cytoxan as per Oncology. Bicarb as per Nephrology s/p IV Hydration/Calcitonin for Hypercalcemia IV fluids now held and patient given 1 dose IV Lasix for fluid overload. As per Nephrology, if no improvement in fluid status, may need HD. Allopurinol for elevated Uric Acid sec to MM Skeletal Survey negative. Further management as per Nephrology/Oncology. 2. Macrocytic Anemia sec to likely MM, MCV 102 H.H 7.9/23.7 up from 6.7/20.5 s/p 1 unit PRBCs. B12 levels borderline, supplemented. 3. Acute Respiratory Failure secondary to fluid overload/JAY - desaturates to 88% on RA, requiring supplemental O2. IV Lasix as per Nephrology. Will monitor fluid status and Nephrology to consider possible HD. 4. HTN - Continue home Labetalol, Hydralazine, Amlodipine 5. BPH - continue Tamsulosin. 6. Elevated Transaminases - etiology unclear ?sec to CTx. Will hold Statin and order Abdominal US. 7. HLD - Atorvastatin held due to elevated transaminases. DVT Px - Heparin SQ BID Visit type - Emergency Visit Emergency Visit: Yes ED Registration Date: 03/27/20 Care time: The patient presented to the Emergency Department on the above date and was hospitalized for further evaluation of their emergent condition. - New Patient This patient is new to me today: No - Critical Care Critical Care patient: No - Discharge Referral Referred to [facility] No
--- NOTE | 2020-04-09 15:01 | PN.HO ---
Progress Note (short form) - Note Progress Note: PAtient seen and examined Discussed via [employer] strip inspector Denies specific complaints Last Vital Signs Temp Pulse Resp BP Pulse Ox 97.6 F 68 20 127/77 95 04/03/20 18:00 04/03/20 18:00 04/03/20 18:00 04/03/20 18:00 04/03/20 09:00 Last Vital Signs Temp Pulse Resp BP Pulse Ox 97.6 F 67 20 165/100 93 L 04/05/20 22:20 04/05/20 22:20 04/05/20 22:20 04/05/20 22:20 04/05/20 21:00 Last Vital Signs Temp Pulse Resp BP Pulse Ox 97.6 F 57 L 18 134/72 94 L 04/07/20 05:53 04/07/20 05:53 04/07/20 05:53 04/07/20 05:53 04/07/20 09:00 Last Vital Signs Temp Pulse Resp BP Pulse Ox 97.4 F L 56 L 21 H 125/65 94 L 04/08/20 20:40 04/08/20 20:40 04/08/20 20:40 04/08/20 20:40 04/08/20 09:00 Cor: RSR, No murmurs, No gallops Lungs: Clear to P&A Abd: Soft, Normal bowel sounds, No organomegaly Ext:No significant edema LAbs/Meds reviewed A/P 74 y/o patient with HTN/HLD --- JAY/anemia, concern for myeloma On 10/07 NS at 75ml/hr. Biopsy c/w myeloma IgG lambda( 20-100% plasma cells) hyperdiploidy+ trisomy 15, 7 and monosomy 13 skeletal survey negative hypercalcemia/anemic renal failure --long standing ? multifactorial Started dexamethasone 20mg IVPB daily x 4 days on 04/04 with protonix Will add velcade and cytoxan . on 04/10 stop calcitonin s/p denosumab 04/07 constipation: increase miralax to bid Discussed with nephrology -- given longstanding renal mpairment unsure of degree of recovery patient will have
[2020-04-09] MEDS: SENNOSIDES 8.6MG TABLET (FP) PO SCH (21:00)
[2020-04-10] MEDS: hydrALAZINE HCL 25 MG TABLET (FP) PO SCH ×3 (06:32→22:47)
[2020-04-10 08:33] LABS: ALBUMIN 3.1 g/dl (3.4-5.0); BILIRUBIN,TOTAL 0.5 mg/dL (0.2-1); CALCIUM 9.1 mg/dL (8.5-10.1); CREATININE 5.5 mg/dL (0.55-1.3); POTASSIUM 3.5 mmol/L (3.5-5.1); TOT PROT 8.2 g/dl (6.4-8.2)
[2020-04-10 08:48] LABS: BLOOD UREA NITROGEN 107.3 mg/dL (7-18)
[2020-04-10] MEDS: amLODIPine BESYLATE 10 MG TABLET (FP) PO SCH (09:25)
[2020-04-10] MEDS: ALLOPURINOL 100 MG TABLET (FP) PO SCH (09:25)
[2020-04-10] MEDS: SODIUM BICARBONATE 650 MG TABLET PO SCH ×2 (09:25→22:47)
[2020-04-10] MEDS: PANTOPRAZOLE 40 MG TABLET PO SCH (09:25)
[2020-04-10] MEDS: CYANOCOBALAMIN 1,000 MCG TABLET (FP) PO SCH (09:25)
[2020-04-10] MEDS: POLYETHYLENE GLYCOL 3350 119 GM BTL PO SCH (09:26)
[2020-04-10] MEDS: HEPARIN NA (PORCINE) 5,000 UNITS/ML 1ML VIAL SQ SCH ×2 (09:26→22:51)
[2020-04-10] MEDS: DOCUSATE SODIUM 100 MG CAPSULE (FP) PO SCH ×2 (09:26→22:47)
[2020-04-10] MEDS: LABETALOL HCL 200 MG TABLET (FP) PO SCH (10:21)
[2020-04-10] MEDS ORDERED: BORTEZOMIB (VELCADE) 2.5 MG/ML SUB-Q INJECTION SQ ONE (11:00)
[2020-04-10] MEDS ORDERED: DEXAMETHASONE INJECTION 20 MG, ONDANSETRON INJECTION 8 MG in SODIUM CHLORIDE 100 ML IVPB ONE (11:00)
[2020-04-10] MEDS ORDERED: CYCLOPHOSPHAMIDE PO ONE (13:00)
[2020-04-10 13:31] LABS: BASO % 0.4 % (0-2.0); EOS % 1.1 % (0-4.5); HEMATOCRIT 25.5 % (35.4-49); HEMOGLOBIN 8.3 GM/dL (11.7-16.9); LYMPH % 9.1 % (8-40); MCH 34.1 pg (25.7-33.7); MCHC 32.6 g/dl (32.0-35.9); MEAN CELL VOLUME 104.6 fl (80-96); MEAN PLT VOLUME 8.2 fl (7.5-11.1); MONO % 11.9 % (3.8-10.2); NEUT % 77.5 % (42.8-82.8); PLATELET COUNT 194 K/MM3 (134-434); RBC 2.44 M/mm3 (4.00-5.60); RDW 21.6 % (11.9-15.9)
[2020-04-10 13:51] LABS: ANISOCYTOSIS 2+; MACROCYTOSIS 2+; PLATELET ESTIMATE NORMAL
[2020-04-10 13:54] LABS: CORRECTED WBC 9.01 K/mm3
[2020-04-10] MEDS ORDERED: POLYETHYLENE GLYCOL 3350 119 GM BTL PO PRN (13:59)
[2020-04-10] MEDS ORDERED: FUROSEMIDE 40 MG/4 ML INJECTABLE VIAL IVPUSH ONE (16:10)
--- NOTE | 2020-04-10 16:12 | PN ---
Progress Note, Physician History of Present Illness: Pt seen and examined at bedside. He denies shortness of breath. He complains of edema. - Current Medication List Current Medications: Active Medications Allopurinol (Zyloprim -) 150 mg PO DAILY [facility] Last Admin: 04/10/20 09:25 Dose: 150 mg Documented by: Amlodipine Besylate (Norvasc -) 10 mg PO DAILY [facility] Last Admin: 04/10/20 09:25 Dose: 10 mg Documented by: Cyanocobalamin (Vitamin B12 -) 1,000 mcg PO DAILY [facility] Last Admin: 04/10/20 09:25 Dose: 1,000 mcg Documented by: Docusate Sodium (Colace -) 100 mg PO BID [facility] Last Admin: 04/10/20 09:26 Dose: Not Given Documented by: Furosemide (Lasix Injection -) 40 mg IVPUSH ONCE ONE Stop: 04/10/20 16:11 Heparin Sodium (Porcine) (Heparin -) 5,000 unit SQ BID [facility] Last Admin: 04/10/20 09:26 Dose: 5,000 unit Documented by: Hydralazine HCl (Apresoline -) 25 mg PO TID [facility] Last Admin: 04/10/20 13:46 Dose: 25 mg Documented by: Labetalol HCl (Normodyne -) 400 mg PO BID [facility] Last Admin: 04/10/20 10:21 Dose: Not Given Documented by: Pantoprazole Sodium (Protonix -) 40 mg PO DAILY [facility] Last Admin: 04/10/20 09:25 Dose: 40 mg Documented by: Polyethylene Glycol (Miralax (For Daily Use) -) 17 gm PO DAILY PRN PRN Reason: CONSTIPATION Senna (Senna -) 2 tab PO HS [facility] Last Admin: 04/09/20 21:00 Dose: 2 tab Documented by: Sodium Bicarbonate (Sodium Bicarbonate -) 1,300 mg PO BID [facility] Last Admin: 04/10/20 09:25 Dose: 1,300 mg Documented by: - Objective Vital Signs: Vital Signs Temperature 97.9 F 04/10/20 14:24 Pulse Rate 60 04/10/20 14:24 Respiratory Rate 20 04/10/20 14:24 Blood Pressure 132/66 04/10/20 14:24 O2 Sat by Pulse Oximetry (%) 96 04/10/20 09:00 Constitutional: Yes: Calm Eyes: Yes: Conjunctiva Clear HENT: Yes: Atraumatic Cardiovascular: Yes: S1, S2 Respiratory: Yes: CTA Bilaterally Gastrointestinal: Yes: Soft Genitourinary: Yes: WNL Musculoskeletal: Yes: WNL Edema: Yes Edema: LLE: 1+, RLE: 1+ Neurological: Yes: Oriented Psychiatric: Yes: Oriented Labs: CBC, BMP 04/10/20 06:45 04/10/20 06:45 INR, PTT INR 1.12 (0.83-1.09) H 03/28/20 07:00 Problem List - Problems (1) [id number] kidney injury Code(s): N17.9 - ACUTE KIDNEY FAILURE, UNSPECIFIED; N18.9 - CHRONIC KIDNEY DISEASE, UNSPECIFIED Qualifiers: Chronic kidney disease stage: stage 3 (moderate) Assessment/Plan Current Medications Generic Name Dose Route Start Last Admin Trade Name Freq PRN Reason Stop Dose Admin Allopurinol 150 mg 04/01/20 17:30 04/10/20 09:25 Zyloprim - PO 150 mg DAILY BRODIE Administration Amlodipine Besylate 10 mg 03/28/20 10:00 04/10/20 09:25 Norvasc - PO 10 mg DAILY BRODIE Administration Cyanocobalamin 1,000 mcg 04/04/20 10:15 04/10/20 09:25 Vitamin B12 - PO 1,000 mcg DAILY BRODIE Administration Docusate Sodium 100 mg 04/06/20 10:46 04/10/20 09:26 Colace - PO Not Given BID BRODIE Furosemide 40 mg 04/10/20 16:10 Lasix Injection - IVPUSH 04/10/20 16:11 ONCE ONE Heparin Sodium (Porcine) 5,000 unit 04/04/20 14:02 04/10/20 09:26 Heparin - SQ 5,000 unit BID BRODIE Administration Hydralazine HCl 25 mg 03/27/20 22:00 04/10/20 13:46 Apresoline - PO 25 mg TID BRODIE Administration Labetalol HCl 400 mg 03/27/20 22:00 04/10/20 10:21 Normodyne - PO Not Given BID BRODIE Pantoprazole Sodium 40 mg 04/04/20 11:45 04/10/20 09:25 Protonix - PO 40 mg DAILY BRODIE Administration Polyethylene Glycol 17 gm 04/10/20 13:59 Miralax (For Daily Use) - PO DAILY PRN CONSTIPATION Senna 2 tab 04/08/20 22:00 04/09/20 21:00 Senna - PO 2 tab HS BRODIE Administration Sodium Bicarbonate 1,300 mg 04/04/20 22:00 04/10/20 09:25 Sodium Bicarbonate - PO 1,300 mg BID BRODIE Administration Impression 1. CKD 2. HTN 3. JAY 4. HLD 5. protienuria 6. multiple myeloma 7. hypercalcemia Plan - fluids stopped - will give lasix - renal function not improving - repeat labs in am - may need to start HD during this admission - will discuss with family - oncology input appreciated
--- NOTE | 2020-04-10 17:17 | PN ---
Teaching Attending Note Name of Resident: Nicanor Bui ATTENDING PHYSICIAN STATEMENT I saw and evaluated the patient. I reviewed the resident's note and discussed the case with the resident. I agree with the resident's findings and plan as documented. SUBJECTIVE: Feeling well, complains of edema LEs. OBJECTIVE: Afebrile, Hemodynamically Stable. Comfortable but now needing supplemental O2. SpO2 96% on 3L via NC, desaturated to 87% on RA. Last Vital Signs Temp Pulse Resp BP Pulse Ox 97.9 F 60 20 132/66 96 04/10/20 14:24 04/10/20 14:24 04/10/20 14:24 04/10/20 14:24 04/10/20 09:00 Heart - S1, S2, RRR Lungs - few basal crackles. Abdomen - soft, non-tender. Bowel Sounds normal. Extremities - Edema +, venous stasis skin changes, no calf tenderness. Neuro - AAO x 3. Tone/Power normal. Laboratory Results - last 24 hr 04/10/20 04/10/20 06:45 06:45 WBC 10.0 Corrected WBC (auto) 9.01 RBC 2.44 L Hgb 8.3 L Hct 25.5 L MCV 104.6 H MCH 34.1 H MCHC 32.6 RDW 21.6 H Plt Count 194 MPV 8.2 Absolute Neuts (auto) 6.9 Neutrophils % 77.5 Neutrophils % (Manual) 69.1 Band Neutrophils % 0.0 Lymphocytes % 9.1 Lymphocytes % (Manual) 11.3 D Monocytes % 11.9 H Monocytes % (Manual) 13 H Eosinophils % 1.1 D Eosinophils % (Manual) 2.1 D Basophils % 0.4 Basophils % (Manual) 0.0 Myelocytes % (Man) 0 Promyelocytes % (Man) 0 Blast Cells % (Manual) 0 Nucleated RBC % 11 H* Metamyelocytes 3 H D Hypochromia 0 Platelet Estimate Normal Polychromasia 2+ Poikilocytosis 0 Anisocytosis 2+ Microcytosis 1+ Macrocytosis 2+ Sodium 137 Potassium 3.5 Chloride 105 Carbon Dioxide 21 Anion Gap 11 BUN 107.3 H* Creatinine 5.5 H Est GFR (CKD-EPI)AfAm 10.89 Est GFR (CKD-EPI)NonAf 9.40 Random Glucose 88 Calcium 9.1 Total Bilirubin 0.5 AST 41 H ALT 145 H Alkaline Phosphatase 66 Total Protein 8.2 Albumin 3.1 L Current Medications Generic Name Dose Route Start Last Admin Trade Name Freq PRN Reason Stop Dose Admin Allopurinol 150 mg 04/01/20 17:30 04/10/20 09:25 Zyloprim - PO 150 mg DAILY BRODIE Administration Amlodipine Besylate 10 mg 03/28/20 10:00 04/10/20 09:25 Norvasc - PO 10 mg DAILY BRODIE Administration Cyanocobalamin 1,000 mcg 04/04/20 10:15 04/10/20 09:25 Vitamin B12 - PO 1,000 mcg DAILY BRODIE Administration Docusate Sodium 100 mg 04/06/20 10:46 04/10/20 09:26 Colace - PO Not Given BID [facility] Heparin Sodium (Porcine) 5,000 unit 04/04/20 14:02 04/10/20 09:26 Heparin - SQ 5,000 unit BID BRODIE Administration Hydralazine HCl 25 mg 03/27/20 22:00 04/10/20 13:46 Apresoline - PO 25 mg TID BRODIE Administration Labetalol HCl 400 mg 03/27/20 22:00 04/10/20 10:21 Normodyne - PO Not Given BID BRODIE Pantoprazole Sodium 40 mg 04/04/20 11:45 04/10/20 09:25 Protonix - PO 40 mg DAILY BRODIE Administration Polyethylene Glycol 17 gm 04/10/20 13:59 Miralax (For Daily Use) - PO DAILY PRN CONSTIPATION Senna 2 tab 04/08/20 22:00 04/09/20 21:00 Senna - PO 2 tab HS BRODIE Administration Sodium Bicarbonate 1,300 mg 04/04/20 22:00 04/10/20 09:25 Sodium Bicarbonate - PO 1,300 mg BID BRODIE Administration Home Medications Medication Instructions Recorded Amlodipine Besylate [Norvasc -] 10 mg PO DAILY #30 tablet 09/08/19 Atorvastatin Ca [Lipitor] 10 mg PO HS #30 tablet 09/08/19 Labetalol HCl [Normodyne -] 400 mg PO BID #60 tablet 09/08/19 Tamsulosin HCl [Flomax -] 0.4 mg PO DAILY@0830 #30 cap.er.24h 09/08/19 Triamcinolone 0.1% Ointment 1 applic TP BID #1 each 09/08/19 [Aristocort 0.1% Ointment -] Fluocinonide 0.05% Cream [Lidex 1 applic TP DAILY #1 tube 11/01/19 0.05% Cream -] Hydralazine HCl 25 mg PO TID 30 Days #90 tablet 11/08/19 Labetalol HCl [Normodyne -] 200 mg PO TID 30 Days #90 tablet 11/08/19 ASSESSMENT AND PLAN: 74 year old male with history of CKD 3, HTN, HLD, BPH, currently undergoing outpatient workup for multiple myeloma, referred by his bartender server (Dr. Owen) for worsening renal failure, hypercalcemia, hyperphosphatemia. Renal US - findings suggestive of chronic renal disease. 1. JAY on CKD 3/Hypercalcemia/Macrocytic Anemia secondary to Multiple Myeloma M-spike, likely MM s/p BM Bx - MM IgG lambda, (20-100% plasma cells) Received IV steroid x 4 days by Hematology/Oncology - received Denosumab 04/07 - for Velcade + Cytoxan as per Oncology. Bicarb as per Nephrology s/p IV Hydration/Calcitonin for Hypercalcemia IV fluids now held and patient given another dose IV Lasix for fluid overload. As per Nephrology, if no improvement in fluid status, may need HD. Allopurinol for elevated Uric Acid sec to MM Skeletal Survey negative. Further management as per Nephrology/Oncology. 2. Macrocytic Anemia sec to likely MM, MCV 102 H.H 8.3/25.5 up from 6.7/20.5 s/p 1 unit PRBCs. B12 levels borderline, supplemented. 3. Acute Respiratory Failure secondary to fluid overload/JAY - desaturates to 88% on RA, requiring supplemental O2. IV Lasix as per Nephrology. Will monitor fluid status and Nephrology to consider possible HD. 4. HTN - Continue home Labetalol, Hydralazine, Amlodipine. Labetolol dose decreased to 300mg BID due to HR in low 50s. 5. BPH - continue Tamsulosin. 6. Elevated Transaminases - etiology unclear ?sec to CTx. Statin held. Non- specific findings on Abdo US - abdomen benign on physical exam. 7. HLD - Atorvastatin held due to elevated transaminases. DVT Px - Heparin SQ BID
[2020-04-10] MEDS ORDERED: LABETALOL HCL 200 MG TABLET (FP) PO SCH (17:24)
[2020-04-10] MEDS ORDERED: LABETALOL HCL 200 MG TABLET (FP) ONE (22:31)
[2020-04-10] MEDS ORDERED: LABETALOL HCL 100 MG TABLET (FP) ONE (22:32)
[2020-04-10] MEDS: SENNOSIDES 8.6MG TABLET (FP) PO SCH (22:47)
[2020-04-10] MEDS: LABETALOL HCL 100 MG, LABETALOL HCL 200 MG PO SCH (22:47)
--- NOTE | 2020-04-11 01:08 | PN.HO ---
Progress Note (short form) - Note Progress Note: PAtient seen and examined Discussed via timber killer Denies specific complaints Last Vital Signs Temp Pulse Resp BP Pulse Ox 97.6 F 68 20 127/77 95 04/03/20 18:00 04/03/20 18:00 04/03/20 18:00 04/03/20 18:00 04/03/20 09:00 Last Vital Signs Temp Pulse Resp BP Pulse Ox 97.6 F 67 20 165/100 93 L 04/05/20 22:20 04/05/20 22:20 04/05/20 22:20 04/05/20 22:20 04/05/20 21:00 Last Vital Signs Temp Pulse Resp BP Pulse Ox 97.6 F 57 L 18 134/72 94 L 04/07/20 05:53 04/07/20 05:53 04/07/20 05:53 04/07/20 05:53 04/07/20 09:00 Last Vital Signs Temp Pulse Resp BP Pulse Ox 97.4 F L 56 L 21 H 125/65 94 L 04/08/20 20:40 04/08/20 20:40 04/08/20 20:40 04/08/20 20:40 04/08/20 09:00 Last Vital Signs Temp Pulse Resp BP Pulse Ox 98.1 F 65 19 134/76 97 04/10/20 22:00 04/10/20 22:00 04/10/20 22:00 04/10/20 22:00 04/10/20 21:00 Cor: RSR, No murmurs, No gallops Lungs: Clear to P&A Abd: Soft, Normal bowel sounds, No organomegaly Ext:No significant edema LAbs/Meds reviewed A/P 74 y/o patient with HTN/HLD --- JAY/anemia, concern for myeloma On 10/07 NS at 75ml/hr. Biopsy c/w myeloma IgG lambda( 20-100% plasma cells) hyperdiploidy+ trisomy 15, 7 and monosomy 13 skeletal survey negative hypercalcemia/anemic renal failure --long standing ? multifactorial Started dexamethasone 20mg IVPB daily x 4 days on 04/04 with protonix for velcade and cytoxan today s/p denosumab 04/07 constipation: increase miralax to bid given longstanding renal mpairment unsure of degree of recovery may need dialysis consider PET-CT as outpatient will need to f/u with Dr. Chadwick as outpatient
[2020-04-11] MEDS: hydrALAZINE HCL 25 MG TABLET (FP) PO SCH ×3 (06:45→22:04)
--- NOTE | 2020-04-11 07:08 | PN ---
Physical Exam: SUBJECTIVE: Patient seen and examined OBJECTIVE: Vital Signs Period Temp Pulse Resp BP Sys/Judd Pulse Ox Last 24 Hr 97.9 F-98.7 F 60-65 19-20 132-142/66-76 96-97 GENERAL: The patient is awake, alert, and fully oriented, in no acute distress. HEAD: Normal with no signs of trauma. EYES: PERRL, extraocular movements intact, sclera anicteric, conjunctiva clear. No ptosis. ENT: Ears normal, nares patent, oropharynx clear without exudates, moist mucous membranes. NECK: Trachea midline, full range of motion, supple. LUNGS: Breath sounds equal, clear to auscultation bilaterally, no wheezes, no crackles, no accessory muscle use. HEART: Regular rate and rhythm, S1, S2 without murmur, rub or gallop. ABDOMEN: Soft, nontender, nondistended, normoactive bowel sounds, no guarding, no rebound, no hepatosplenomegaly, no masses. EXTREMITIES: 2+ pulses, warm, well-perfused, no edema. NEUROLOGICAL: Cranial nerves II through XII grossly intact. Normal speech, gait not observed. PSYCH: Normal mood, normal affect. SKIN: Warm, dry, normal turgor, no rashes or lesions noted Laboratory Results - last 24 hr 04/10/20 04/10/20 04/10/20 06:45 06:45 06:45 WBC 10.0 Corrected WBC (auto) 9.01 RBC 2.44 L Hgb 8.3 L Hct 25.5 L MCV 104.6 H MCH 34.1 H MCHC 32.6 RDW 21.6 H Plt Count 194 MPV 8.2 Absolute Neuts (auto) 6.9 Neutrophils % 77.5 Neutrophils % (Manual) 69.1 Band Neutrophils % 0.0 Lymphocytes % 9.1 Lymphocytes % (Manual) 11.3 D Monocytes % 11.9 H Monocytes % (Manual) 13 H Eosinophils % 1.1 D Eosinophils % (Manual) 2.1 D Basophils % 0.4 Basophils % (Manual) 0.0 Myelocytes % (Man) 0 Promyelocytes % (Man) 0 Blast Cells % (Manual) 0 Nucleated RBC % 11 H* Metamyelocytes 3 H D Hypochromia 0 Platelet Estimate Normal Polychromasia 2+ Poikilocytosis 0 Anisocytosis 2+ Microcytosis 1+ Macrocytosis 2+ Sodium 137 Potassium 3.5 Chloride 105 Carbon Dioxide 21 Anion Gap 11 BUN 107.3 H* Creatinine 5.5 H Est GFR (CKD-EPI)AfAm 10.89 Est GFR (CKD-EPI)NonAf 9.40 Random Glucose 88 Calcium 9.1 Total Bilirubin 0.5 AST 41 H ALT 145 H Alkaline Phosphatase 66 Total Protein 8.2 Albumin 3.1 L PTH Intact 58 Active Medications Generic Name Dose Route Start Last Admin Trade Name Freq PRN Reason Stop Dose Admin Allopurinol 150 mg 04/01/20 17:30 04/10/20 09:25 Zyloprim - PO 150 mg DAILY BRODIE Administration Amlodipine Besylate 10 mg 03/28/20 10:00 04/10/20 09:25 Norvasc - PO 10 mg DAILY BRODIE Administration Cyanocobalamin 1,000 mcg 04/04/20 10:15 04/10/20 09:25 Vitamin B12 - PO 1,000 mcg DAILY BRODIE Administration Docusate Sodium 100 mg 04/06/20 10:46 04/10/20 22:47 Colace - PO 100 mg BID BRODIE Administration Heparin Sodium (Porcine) 5,000 unit 04/04/20 14:02 04/10/20 22:51 Heparin - SQ 5,000 unit BID BRODIE Administration Hydralazine HCl 25 mg 03/27/20 22:00 04/11/20 06:45 Apresoline - PO 25 mg TID BRODIE Administration Labetalol HCl 100 mg/ 300 mg 04/10/20 22:00 04/10/20 22:47 Labetalol HCl 200 mg PO 300 mg BID BRODIE Administration Pantoprazole Sodium 40 mg 04/04/20 11:45 04/10/20 09:25 Protonix - PO 40 mg DAILY BRODIE Administration Polyethylene Glycol 17 gm 04/11/20 10:00 Miralax (For Daily Use) - PO BID BRODIE Senna 2 tab 04/08/20 22:00 04/10/20 22:47 Senna - PO 2 tab HS BRODIE Administration Sodium Bicarbonate 1,300 mg 04/04/20 22:00 04/10/20 22:47 Sodium Bicarbonate - PO 1,300 mg BID BRODIE Administration ASSESSMENT/PLAN: ATTENDING PHYSICIAN STATEMENT I saw and evaluated the patient. I reviewed the resident's note and discussed the case with the resident. I agree with the resident's findings and plan as documented. SUBJECTIVE: OBJECTIVE: ASSESSMENT AND PLAN:
[2020-04-11] MEDS ORDERED: LABETALOL HCL 200 MG TABLET (FP) ONE ×2 (09:07→21:59)
[2020-04-11] MEDS ORDERED: LABETALOL HCL 100 MG TABLET (FP) ONE ×2 (09:07→21:59)
[2020-04-11] MEDS: LABETALOL HCL 100 MG, LABETALOL HCL 200 MG PO SCH ×2 (09:10→22:03)
[2020-04-11] MEDS: CYANOCOBALAMIN 1,000 MCG TABLET (FP) PO SCH (09:10)
[2020-04-11] MEDS: ALLOPURINOL 100 MG TABLET (FP) PO SCH (09:10)
[2020-04-11] MEDS: SODIUM BICARBONATE 650 MG TABLET PO SCH ×2 (09:10→22:03)
[2020-04-11] MEDS: DOCUSATE SODIUM 100 MG CAPSULE (FP) PO SCH ×2 (09:10→22:04)
[2020-04-11] MEDS: PANTOPRAZOLE 40 MG TABLET PO SCH (09:11)
[2020-04-11] MEDS: HEPARIN NA (PORCINE) 5,000 UNITS/ML 1ML VIAL SQ SCH ×2 (09:17→22:03)
[2020-04-11] MEDS: POLYETHYLENE GLYCOL 3350 119 GM BTL PO SCH ×2 (09:17→22:04)
[2020-04-11] MEDS: amLODIPine BESYLATE 10 MG TABLET (FP) PO SCH (09:18)
--- NOTE | 2020-04-11 12:59 | PN ---
Physical Exam: SUBJECTIVE: Patient seen and examined. Pt. denies any acute complaints today. Pt. denies N/V/D and endorses a good appetite. OBJECTIVE: Vital Signs Period Temp Pulse Resp BP Sys/Judd Pulse Ox Last 24 Hr 97.9 F-98.7 F 60-65 18-20 132-143/66-76 96-97 GENERAL: The patient is awake, alert, and fully oriented, in no acute distress. HEAD: Normal with no signs of trauma. EYES: Sclera anicteric, conjunctiva clear. No ptosis. ENT: Moist mucous membranes. NECK: Trachea midline, full range of motion, supple. LUNGS: Breath sounds equal, clear to auscultation bilaterally, no wheezes, no crackles, no accessory muscle use. HEART: Regular rate and rhythm, S1, S2 without murmur, rub or gallop. ABDOMEN: Soft, nontender, nondistended, normoactive bowel sounds EXTREMITIES: 2+ dorsal pedal pulses, warm, well-perfused, no calf tenderness, 1+ edema. NEUROLOGICAL: Normal speech, gait not observed. PSYCH: Anxious SKIN: Warm, dry, normal turgor Laboratory Results - last 24 hr 04/10/20 04/10/20 04/10/20 06:45 06:45 06:45 WBC 10.0 Corrected WBC (auto) 9.01 RBC 2.44 L Hgb 8.3 L Hct 25.5 L MCV 104.6 H MCH 34.1 H MCHC 32.6 RDW 21.6 H Plt Count 194 MPV 8.2 Absolute Neuts (auto) 6.9 Neutrophils % 77.5 Neutrophils % (Manual) 69.1 Band Neutrophils % 0.0 Lymphocytes % 9.1 Lymphocytes % (Manual) 11.3 D Monocytes % 11.9 H Monocytes % (Manual) 13 H Eosinophils % 1.1 D Eosinophils % (Manual) 2.1 D Basophils % 0.4 Basophils % (Manual) 0.0 Myelocytes % (Man) 0 Promyelocytes % (Man) 0 Blast Cells % (Manual) 0 Nucleated RBC % 11 H* Metamyelocytes 3 H D Hypochromia 0 Platelet Estimate Normal Polychromasia 2+ Poikilocytosis 0 Anisocytosis 2+ Microcytosis 1+ Macrocytosis 2+ Sodium 137 Potassium 3.5 Chloride 105 Carbon Dioxide 21 Anion Gap 11 BUN 107.3 H* Creatinine 5.5 H Est GFR (CKD-EPI)AfAm 10.89 Est GFR (CKD-EPI)NonAf 9.40 Random Glucose 88 Calcium 9.1 Total Bilirubin 0.5 AST 41 H ALT 145 H Alkaline Phosphatase 66 Total Protein 8.2 Albumin 3.1 L PTH Intact 58 Active Medications Generic Name Dose Route Start Last Admin Trade Name Freq PRN Reason Stop Dose Admin Allopurinol 150 mg 04/01/20 17:30 04/11/20 09:10 Zyloprim - PO 150 mg DAILY BRODIE Administration Amlodipine Besylate 10 mg 03/28/20 10:00 04/11/20 09:18 Norvasc - PO 10 mg DAILY BRODIE Administration Cyanocobalamin 1,000 mcg 04/04/20 10:15 04/11/20 09:10 Vitamin B12 - PO 1,000 mcg DAILY BRODIE Administration Docusate Sodium 100 mg 04/06/20 10:46 04/11/20 09:10 Colace - PO 100 mg BID BRODIE Administration Heparin Sodium (Porcine) 5,000 unit 04/04/20 14:02 04/11/20 09:17 Heparin - SQ 5,000 unit BID BRODIE Administration Hydralazine HCl 25 mg 03/27/20 22:00 04/11/20 06:45 Apresoline - PO 25 mg TID BRODIE Administration Labetalol HCl 100 mg/ 300 mg 04/10/20 22:00 04/11/20 09:10 Labetalol HCl 200 mg PO 300 mg BID BRODIE Administration Pantoprazole Sodium 40 mg 04/04/20 11:45 04/11/20 09:11 Protonix - PO 40 mg DAILY BRODIE Administration Polyethylene Glycol 17 gm 04/11/20 10:00 04/11/20 09:17 Miralax (For Daily Use) - PO 17 gm BID BRODIE Administration Senna 2 tab 04/08/20 22:00 04/10/20 22:47 Senna - PO 2 tab HS BRODIE Administration Sodium Bicarbonate 1,300 mg 04/04/20 22:00 04/11/20 09:10 Sodium Bicarbonate - PO 1,300 mg BID BRODIE Administration ASSESSMENT/PLAN: Pt. is a 74 y.o. M w/ PMHx. of HTN, HLD, BPH and CKD(Stage III) presents from his Manager Of Patient office for JAY on CKD, and hypercalcemia concerning for Multiple Myeloma. #Multiple Myeloma Preliminary flow c/w myeloma (IGG monoclonal expansion with elevated lambda and kappa light chains) Ratio is less 0.18, Albumin 3.2 May need to order B2 Microglobulin to complete staging workup, based on International Staging system Pt. is at least Stage 2(Hemoglobin less than 10 and Albumin less than 3.5) await final pathology Metastatic Series negative s/p dexamethasone Uric Acid 7.9, f/u Rpt. Pt. is s/p Velcade and Cytoxan yesterday. #HTN #HLD #BPH #CKD c/w home medications per Primary team Nephrology consult appreciated for management Pt. will likely need inpatient Permacath and outpatient HD Pt. made 1700 cc urine yesterday but has markedly elevated BUN (not currently encephalopathic) #DVT Ppx. Hep SQ- ideally would be on Lovenox but Pt. is in acute renal failure Visit type - Emergency Visit Emergency Visit: Yes ED Registration Date: 03/27/20 Care time: The patient presented to the Emergency Department on the above date and was hospitalized for further evaluation of their emergent condition. - New Patient This patient is new to me today: No - Critical Care Critical Care patient: No - Discharge Referral Referred to [facility] No ATTENDING PHYSICIAN STATEMENT I saw and evaluated the patient. I reviewed the resident's note and discussed the case with the resident. I agree with the resident's findings and plan as documented. SUBJECTIVE: OBJECTIVE: ASSESSMENT AND PLAN:
[2020-04-11 13:28] LABS: BLOOD UREA NITROGEN 100.7 mg/dL (7-18); CREATININE 5.1 mg/dL (0.55-1.3); POTASSIUM 4.3 mmol/L (3.5-5.1)
--- NOTE | 2020-04-11 14:45 | PN ---
Progress Note, Physician History of Present Illness: Pt seen and examined at bedside. He is awake and alert. He denies shortness of breath. - Current Medication List Current Medications: Active Medications Allopurinol (Zyloprim -) 150 mg PO DAILY [facility] Last Admin: 04/11/20 09:10 Dose: 150 mg Documented by: Amlodipine Besylate (Norvasc -) 10 mg PO DAILY [facility] Last Admin: 04/11/20 09:18 Dose: 10 mg Documented by: Cyanocobalamin (Vitamin B12 -) 1,000 mcg PO DAILY [facility] Last Admin: 04/11/20 09:10 Dose: 1,000 mcg Documented by: Docusate Sodium (Colace -) 100 mg PO BID [facility] Last Admin: 04/11/20 09:10 Dose: 100 mg Documented by: Heparin Sodium (Porcine) (Heparin -) 5,000 unit SQ BID [facility] Last Admin: 04/11/20 09:17 Dose: 5,000 unit Documented by: Hydralazine HCl (Apresoline -) 25 mg PO TID [facility] Last Admin: 04/11/20 06:45 Dose: 25 mg Documented by: Labetalol HCl 100 mg/ (Labetalol HCl 200 mg) 300 mg PO BID [facility] Last Admin: 04/11/20 09:10 Dose: 300 mg Documented by: Pantoprazole Sodium (Protonix -) 40 mg PO DAILY [facility] Last Admin: 04/11/20 09:11 Dose: 40 mg Documented by: Polyethylene Glycol (Miralax (For Daily Use) -) 17 gm PO BID [facility] Last Admin: 04/11/20 09:17 Dose: 17 gm Documented by: Senna (Senna -) 2 tab PO HS [facility] Last Admin: 04/10/20 22:47 Dose: 2 tab Documented by: Sodium Bicarbonate (Sodium Bicarbonate -) 1,300 mg PO BID [facility] Last Admin: 04/11/20 09:10 Dose: 1,300 mg Documented by: - Objective Vital Signs: Vital Signs Temperature 98 F 04/11/20 09:00 Pulse Rate 63 04/11/20 09:00 Respiratory Rate 18 04/11/20 09:00 Blood Pressure 143/72 04/11/20 09:00 O2 Sat by Pulse Oximetry (%) 96 04/11/20 09:00 Constitutional: Yes: Calm Eyes: Yes: Conjunctiva Clear HENT: Yes: Atraumatic Neck: Yes: Supple Cardiovascular: Yes: S1, S2 Respiratory: Yes: CTA Bilaterally Gastrointestinal: Yes: Soft Genitourinary: Yes: WNL Musculoskeletal: Yes: WNL Edema: Yes Edema: LLE: Trace, RLE: Trace Neurological: Yes: Oriented Psychiatric: Yes: Oriented Labs: CBC, BMP 04/10/20 06:45 04/11/20 12:26 INR, PTT INR 1.12 (0.83-1.09) H 03/28/20 07:00 Problem List - Problems (1) [id number] kidney injury Code(s): N17.9 - ACUTE KIDNEY FAILURE, UNSPECIFIED; N18.9 - CHRONIC KIDNEY DISEASE, UNSPECIFIED Qualifiers: Chronic kidney disease stage: stage 3 (moderate) Assessment/Plan Current Medications Generic Name Dose Route Start Last Admin Trade Name Freq PRN Reason Stop Dose Admin Allopurinol 150 mg 04/01/20 17:30 04/11/20 09:10 Zyloprim - PO 150 mg DAILY BRODIE Administration Amlodipine Besylate 10 mg 03/28/20 10:00 04/11/20 09:18 Norvasc - PO 10 mg DAILY BRODIE Administration Cyanocobalamin 1,000 mcg 04/04/20 10:15 04/11/20 09:10 Vitamin B12 - PO 1,000 mcg DAILY BRODIE Administration Docusate Sodium 100 mg 04/06/20 10:46 04/11/20 09:10 Colace - PO 100 mg BID BRODIE Administration Heparin Sodium (Porcine) 5,000 unit 04/04/20 14:02 04/11/20 09:17 Heparin - SQ 5,000 unit BID BRODIE Administration Hydralazine HCl 25 mg 03/27/20 22:00 04/11/20 06:45 Apresoline - PO 25 mg TID BRODIE Administration Labetalol HCl 100 mg/ 300 mg 04/10/20 22:00 04/11/20 09:10 Labetalol HCl 200 mg PO 300 mg BID BRODIE Administration Pantoprazole Sodium 40 mg 04/04/20 11:45 04/11/20 09:11 Protonix - PO 40 mg DAILY BRODIE Administration Polyethylene Glycol 17 gm 04/11/20 10:00 04/11/20 09:17 Miralax (For Daily Use) - PO 17 gm BID BRODIE Administration Senna 2 tab 04/08/20 22:00 04/10/20 22:47 Senna - PO 2 tab HS BRODIE Administration Sodium Bicarbonate 1,300 mg 04/04/20 22:00 04/11/20 09:10 Sodium Bicarbonate - PO 1,300 mg BID BRODIE Administration Impression 1. CKD 2. HTN 3. JAY 4. HLD 5. protienuria 6. multiple myeloma 7. hypercalcemia Plan - renal function improving - pt will follow with Dr Barnett as outpt, called and discussed with him - called and discussed with daughter, Sugar, and she will make sure he gets bloodwork done every year - monitor closely for renal recovery - discussed with medical team - cont bicarb po - cont lasix and monitor volume status - edema is improved from yesterday - oncology input appreciated
[2020-04-11] MEDS ORDERED: PT OWN MED DRAWER 7, Y5N ONE (15:57)
--- NOTE | 2020-04-11 17:26 | DS ---
Physical Exam: SUBJECTIVE: Patient seen and examined Patient was examined at bedside. Patient does not endorse any overnight events. OBJECTIVE: Vital Signs Period Temp Pulse Resp BP Sys/Judd Pulse Ox Last 24 Hr 97.8 F-98.7 F 60-65 18-20 134-143/56-76 96-97 PHYSICAL EXAM GENERAL: The patient is awake, alert, and fully oriented, in no acute distress. HEAD: Normal with no signs of trauma. EYES: PERRL, extraocular movements intact, sclera anicteric, conjunctiva clear. ENT: Ears normal, nares patent, oropharynx clear without exudates, moist mucous membranes. NECK: Trachea midline, full range of motion, supple. LUNGS: Breath sounds equal, clear to auscultation bilaterally, no wheezes, no crackles, no accessory muscle use. HEART: Regular rate and rhythm, S1, S2 without murmur, rub or gallop. ABDOMEN: Soft, nontender, nondistended, normoactive bowel sounds, no guarding, no rebound, no hepatosplenomegaly, no masses. EXTREMITIES: 2+ pulses, warm, well-perfused, no edema. NEUROLOGICAL: Cranial nerves II through XII grossly intact. Normal speech, gait not observed. PSYCH: Normal mood, normal affect. SKIN: Warm, dry, normal turgor, no rashes or lesions noted. LABS Laboratory Results - last 24 hr 04/10/20 04/11/20 06:45 12:26 Sodium 136 Potassium 4.3 Chloride 105 Carbon Dioxide 18 L Anion Gap 13 BUN 100.7 H Creatinine 5.1 H Est GFR (CKD-EPI)AfAm 11.93 Est GFR (CKD-EPI)NonAf 10.30 Random Glucose 125 H Calcium 9.0 PTH Intact 58 HOSPITAL COURSE: Date of Admission:03/27/20 Mr. Jiang is a 74 y/o M with a significant past medical history of CKD, HTN, and HLD who presented to [facility] [place] at the behest of his Gold Leaf Printer. Per conversation with Nephrology, patient's outpatient laboratory values revealed a serum creatinine elevated to 5.9 from 3.3. Patient's calcium was also elevated at 15. THe patient was worked up for a possible multiple myeloma.On cytology the patient has a confirmed M spike and received a positive bone marrow biopsy showing osteolytic lesions. Started on 4 days IV steroid by Hematology/Oncology for eventual Velcade and Cytoxan. BM Bx confirms MM (20-100% plasma cells). The patients lytes were monitored and cleared electrolytes and will require follow- up to monitor for lab abnormality or changes. Date of Discharge: 04/11/20 Minutes to complete discharge: 40 Discharge Summary Problems reviewed: Yes Reason For Visit: ACUTE RENAL FAILURE SUPERIMPOSED ON CHRONIC KIDNEY Condition: Good - Instructions Diet, Activity, Other Instructions: You were admitted to the hospital for abnormal lab values by your activities attendant Dr. Owen. While you were in the hospital, we evaluated you with lab work, blood work, imaging including x rays of your chest and bone marrow biopsy showing multiple myeloma. We found that your symptoms were caused by an injury to your kidneys due to your multiple myeloma. You were evaluated by specialist during your hospital course. You were treated with fluids, steriods and chemotherapeutic agents. You will need to follow up with the heme/oncologist for further treatments. While you were in the hospital, your lab work showed an elevation in your liver enzymes, however, your imaging and clinical exam was normal. Please follow up with your primary care physician for a repeat blood work (CMP and CBC). While you were here, you were also found to have anemia for which you will need to follow up with Dr. Chadwick, the education finance processor. On your imaging, you were also found to have an abnormality (a small pleural effusion), which will need to be followed up by your primary care physician. We have made some changes to your Medications, Please START taking Labetolol 300mg twice daily instead of your home dose Please START taking Allopurinol 150mg once a day. Please START taking Lasix 40 mg daily for the next 7 days only, starting tomorrow 04/12/20 and 04/19/20 Please START taking Docusate 100 mg twice daily Please START taking Miralax 17 g twice daily Please STOP taking Atorvastatin until you follow up with your Primary care physician and repeat your blood work. Continue to take all other home medications as prescribed. Follow up: - Please follow-up with your activities attendant Dr. Owen with in 1 week to follow up for a blood test. It is important that you are closely monitored for your kidney functions. - Please follow up with your education finance processor Dr. Chadwick in 1 week, for a PET-CT as outpatient and to investigate your anemia. - Visit with your Primary Care Provider in 2 weeks. If you do not have a primary care provider you may make an appointment with Dr. Nicanor Bui at the [facility] located at [address] [place] [address] ([phone]). Additional Instructions: -You are being discharged to your (home). -Please return to the Emergency Department if you experience worsening pain, fevers, chills, shortness of breath, or chest pain, or if you experience any worsening, new or concerning symptoms. Referrals: [facility] [place] [facility] [place] [Provider Group] - 1 Week Jose Enrique Owen MD [Staff Physician] - 1 Week Anam Chadwick MD [Staff Physician] - 1 Week Disposition: HOME - Home Medications Comprehensive Discharge Medication List: Ambulatory Orders Amlodipine Besylate [Norvasc -] 10 mg PO DAILY #30 tablet 09/08/19 Atorvastatin Ca [Lipitor] 10 mg PO HS #30 tablet 09/08/19 Tamsulosin HCl [Flomax -] 0.4 mg PO DAILY@0830 #30 cap.er.24h 09/08/19 Triamcinolone 0.1% Ointment [Aristocort 0.1% Ointment -] 1 applic TP BID #1 each 09/08/19 Fluocinonide 0.05% Cream [Lidex 0.05% Cream -] 1 applic TP DAILY #1 tube 11/01/19 Hydralazine HCl 25 mg PO TID 30 Days #90 tablet 11/08/19 Labetalol HCl [Normodyne -] 200 mg PO TID 30 Days #90 tablet 11/08/19 Aspirin [Aspirin EC] 81 mg PO DAILY 04/11/20 Collagenase Clostridium Hist. [Santyl -] 1 applic TP DAILY 04/11/20 Furosemide [Lasix] 40 mg PO DAILY #7 tablet 04/11/20 This patient is new to me today: Yes Date on this admission: 04/20/20 Emergency Visit: No Critical Care patient: No - Discharge Referral Referred to [facility] No Physician Referral: Parker Wilson MD (Int Med) ATTENDING PHYSICIAN STATEMENT I saw and evaluated the patient. I reviewed the resident's note and discussed the case with the resident. I agree with the resident's findings and plan as documented. SUBJECTIVE: OBJECTIVE: ASSESSMENT AND PLAN:
--- NOTE | 2020-04-11 17:27 | PN ---
Teaching Attending Note Name of Resident: Nicanor Bui ATTENDING PHYSICIAN STATEMENT I saw and evaluated the patient. I reviewed the resident's note and discussed the case with the resident. I agree with the resident's findings and plan as documented. SUBJECTIVE: Seen and examined at bedside. Patient without complaints. Noted to have mild edema to mid thigh. Lungs clear. Discussed case with nephrology and oncology: Patient's electrolytes appear to be stable and his BUN is decreasing. He is hemodynamically stable and is medically cleared for discharge. He will require very close, weekly follow-up. The importance of follow-up was discussed with both the patient and his daughter who expressed understanding. OBJECTIVE: Last Vital Signs Temp Pulse Resp BP Pulse Ox 97.8 F 65 20 138/56 L 96 04/11/20 14:40 04/11/20 14:40 04/11/20 14:40 04/11/20 14:40 04/11/20 09:00 PE: Per resident note Labs/Imaging: reviewed ASSESSMENT AND PLAN: 74 year old male with history of CKD 3, HTN, HLD, BPH, currently undergoing outpatient workup for multiple myeloma, referred by his dispensing audiologist (Dr. Owen) for worsening renal failure, hypercalcemia, hyperphosphatemia. Patient underwent a bone marrow biopsy which showed 20 to 100% plasma cells, diagnostic for multiple myeloma. Patient received denosumab, as well as Velcade and Cytoxan. Patient was also started on allopurinol for hyperuricemia. Patient still has remaining renal function but is collin-dialysis. His electrolytes are currently stable and he is medically cleared for discharge at this time, but will require strict weekly follow-up to check his labs and ensure continued control of electrolytes and maintenance of renal function.
--- NOTE | 2020-04-11 19:28 | PN ---
Teaching Attending Note Name of Resident: Albaro Carnes ATTENDING PHYSICIAN STATEMENT I saw and evaluated the patient. I reviewed the resident's note and discussed the case with the resident. I agree with the resident's findings and plan as documented. 74 y/o gentleman newly diagnosed with IgG lambda multiple myeloma (hyperdiploidy+, trisomy 15,7 monosomy 13) with renal failure anemia and hypercalcemia Recommend: 1) MM. CyBorD. Completed Bortezomib and Cyclophosphamide yesterday. 2) F/u with Dr. Chadwick outpt. 3) Please refer to Dr. Carnes's note for details
[2020-04-11] MEDS: SENNOSIDES 8.6MG TABLET (FP) PO SCH (22:04)
[2020-04-12] MEDS: hydrALAZINE HCL 25 MG TABLET (FP) PO SCH ×2 (06:52→06:54)
[2020-04-12 07:01] VITALS: BP 135/66; PULSE 52; TEMP 97.7
[2020-04-12 07:40] LABS: BASO % 0.4 % (0-2.0); EOS % 1.1 % (0-4.5); HEMOGLOBIN 8.4 GM/dL (11.7-16.9); MCH 33.6 pg (25.7-33.7); MCHC 32.5 g/dl (32.0-35.9); MEAN CELL VOLUME 103.3 fl (80-96); NEUT % 71.5 % (42.8-82.8); PLATELET COUNT 191 K/MM3 (134-434); RBC 2.52 M/mm3 (4.00-5.60); RDW 21.7 % (11.9-15.9); WHITE BLOOD COUNT 9.8 K/mm3 (4.0-10.0)
[2020-04-12] MEDS ORDERED: LABETALOL HCL 200 MG TABLET (FP) ONE (09:24)
[2020-04-12] MEDS ORDERED: LABETALOL HCL 100 MG TABLET (FP) ONE (09:25)
[2020-04-12] MEDS: SODIUM BICARBONATE 650 MG TABLET PO SCH (09:30)
[2020-04-12] MEDS: ALLOPURINOL 100 MG TABLET (FP) PO SCH (09:30)
[2020-04-12] MEDS: LABETALOL HCL 100 MG, LABETALOL HCL 200 MG PO SCH (09:31)
[2020-04-12] MEDS: POLYETHYLENE GLYCOL 3350 119 GM BTL PO SCH (09:31)
[2020-04-12] MEDS: amLODIPine BESYLATE 10 MG TABLET (FP) PO SCH (09:31)
[2020-04-12] MEDS: HEPARIN NA (PORCINE) 5,000 UNITS/ML 1ML VIAL SQ SCH (09:32)
[2020-04-12] MEDS: DOCUSATE SODIUM 100 MG CAPSULE (FP) PO SCH (09:35)
[2020-04-12] MEDS: CYANOCOBALAMIN 1,000 MCG TABLET (FP) PO SCH (09:35)
[2020-04-12] MEDS: PANTOPRAZOLE 40 MG TABLET PO SCH (09:35)
[2020-04-12 11:21] LABS: PLATELET ESTIMATE NORMAL
== END 2020-04-12 10:39 | disposition home or self-care (01) | DRG 691 ==
LOC: JER 12:47 → JERBED 16:41 → J8W 20:39 → J7W 03-31 19:36
PROVIDERS: ADMIT Internal Medicine; ATTEND Internal Medicine
PROC: 0QB23ZX Excision of Right Pelvic Bone, Percutaneous Approach, Diagnostic (ICD-10-PCS; principal; 2020-03-29)
PROC: 30233N1 Transfusion of Nonautologous Red Blood Cells into Peripheral Vein, Percutaneous Approach (ICD-10-PCS; 2020-04-04)
DX: C90.00 Multiple myeloma not having achieved remission (principal); R80.9 Proteinuria, unspecified; N18.3 Chronic kidney disease, stage 3 (moderate); D64.9 Anemia, unspecified; E87.70 Fluid overload, unspecified; E83.52 Hypercalcemia; E83.39 Other disorders of phosphorus metabolism; I13.10 Hypertensive heart and chronic kidney disease without heart failure, with stage 1 through stage 4 chronic kidney disease, or unspecified chronic kidney disease; N40.0 Benign prostatic hyperplasia without lower urinary tract symptoms; E78.5 Hyperlipidemia, unspecified; R94.5 Abnormal results of liver function studies; J96.00 Acute respiratory failure, unspecified whether with hypoxia or hypercapnia; N17.9 Acute kidney failure, unspecified; K59.00 Constipation, unspecified; R74.0 Nonspecific elevation of levels of transaminase and lactic acid dehydrogenase [LDH]; E87.6 Hypokalemia
CPT/HCPCS: 20225; 36415; 36430; 36511; 71045-TC-FY; 76098-TC-FY; 76380-TC; 76705-TC; 76775; 76775-TC; 76856-TC; 77074-TC-FY; 80048; 80053; 81003; 82565; 82607; 82728; 82746; 82784; 82962; 83540; 83550; 83615; 83735; 83883; 83930; 83935; 83970; 84100; 84300; 84550; 85025; 85027; 85610; 85730; 86850; 86900; 86901; 86922; 87040; 87086; 87899; 88300-TC; 88305-TC; 88311-TC; 88313-TC; 93005; 93010; 99285-25; J0897; J1100; J1644; J8530; J9041; P9038; P9058; U0003

== ENCOUNTER 2020-04-20 10:27 | Inpatient (IN) | payer OTHER ==
[2020-04-20 10:57] VITALS: BMI 20.9
[2020-04-20] MEDS ORDERED: SODIUM CHLORIDE 1,715 ML IV ONE (11:14)
--- NOTE | 2020-04-20 11:17 | PDOC ---
History of Present Illness - General Chief Complaint: Abnormal Lab Results (Outside) Stated Complaint: SENT BY PCP FOR FEVER Time Seen by Provider: 04/20/20 11:14 - History of Present Illness Initial Comments: Ryan Hemphill is a 74 y/o male with PMH significant for multiple myeloma (IgG), renal insufficiency, hepatocellular disease, sent in from Dr. Chadwick's office. Currently on chemotherapy (zelkate, celixin w/ decadron). Reports nausea today and fever of 101. Reports chills. No chest pain. No shortness of breath. No cough. No back pain. No leg swelling. Past History - Medical History Allergies/Adverse Reactions: Allergies Allergy/AdvReac Type Severity Reaction Status Date / Time No Known Allergies Allergy Verified 03/27/20 12:50 Home Medications: Ambulatory Orders Amlodipine Besylate [Norvasc -] 10 mg PO DAILY #30 tablet 09/08/19 Tamsulosin HCl [Flomax -] 0.4 mg PO DAILY@0830 #30 cap.er.24h 09/08/19 Hydralazine HCl 25 mg PO TID 30 Days #90 tablet 11/08/19 Allopurinol [Zyloprim -] 150 mg PO DAILY #30 tablet 04/11/20 Docusate Sodium [Colace -] 100 mg PO BID #30 capsule 04/11/20 Furosemide [Lasix] 40 mg PO DAILY #7 tablet 04/11/20 Labetalol HCl 300 mg PO BID #30 tablet 04/11/20 Polyethylene Glycol 3350 [Miralax 119 gm Btl -] 17 gm PO BID #30 bottle 04/11/20 Atorvastatin Calcium [Lipitor] 10 mg PO HS 04/20/20 Cardiac Disorders: No COPD: No Disorders: Yes (kidney disease) HTN: Yes Hypercholesterolemia: Yes Kidney Stones: (renal failure 20% working) - Surgical History Appendectomy: Yes - Immunization History Immunization Up to Date: Yes - Psycho-Social/Smoking History Smoking History: Never smoked Have you smoked in the past 12 months: No Information on smoking cessation initiated: No - Substance Abuse Hx (Audit-C & DAST Scrn) How often the patient has a drink containing alcohol: Never Score: In Men: 4 or > Positive; In Women: 3 or > Positive: 0 Screen Result (Pos requires Nsg. Audit-10AR): Negative In the last yr the pt used illegal drug/Rx for NonMed reason: No Score: Yes response is considered Positive: 0 Screen Result (Positive result requires Nsg. DAST-10): Negative Review of Systems - Review of Systems Comments:: GENERAL/CONSTITUTIONAL: Reports fever and chills. No weakness._ HEAD, EYES, EARS, NOSE AND THROAT: No change in vision. No change in hearing. No sore throat._ CARDIOVASCULAR: No chest pain or shortness of breath_ RESPIRATORY: Denies cough, hemoptysis_ GASTROINTESTINAL: No nausea, vomiting, diarrhea or constipation._ GENITOURINARY: No dysuria, frequency, or change in urination._ MUSCULOSKELETAL: No joint or muscle swelling or pain. No neck or back pain._ SKIN: No rash_ NEUROLOGIC: No headache, vertigo, loss of consciousness, or change in strength/sensation._ ENDOCRINE: No increased thirst. No abnormal weight change_ HEMATOLOGIC/LYMPHATIC: No anemia, easy bleeding, or history of blood clots._ ALLERGIC/IMMUNOLOGIC: No hives or skin allergy._ *Physical Exam - Vital Signs Last Vital Signs Temp Pulse Resp BP Pulse Ox 98.1 F 70 18 150/91 97 04/20/20 10:44 04/20/20 10:44 04/20/20 10:44 04/20/20 10:44 04/20/20 10:44 - Physical Exam GENERAL: Awake, alert, and oriented to person/place/time, in no acute distress_ HEAD: No signs of trauma, normocephalic, atraumatic _ EYES: PERRLA, EOMI, sclera anicteric, conjunctiva clear_ ENT: Hearing grossly normal, nares patent, oropharynx clear without exudates. No uvular deviation. Moist mucosa_ NECK: Normal ROM, supple, no lymphadenopathy, JVD, or masses_ LUNGS: No distress, speaks in full sentences, clear to auscultation bilaterally. No wheezes/rales/rhonchi. HEART: Regular rate and rhythm, normal S1 and S2, no murmurs appreciated, peripheral pulses normal and equal bilaterally._ ABDOMEN: Soft, nontender, normoactive bowel sounds. No guarding, no rebound. No masses_ EXTREMITIES: Normal inspection, Normal range of motion, no edema. No clubbing or cyanosis_ NEUROLOGICAL: Cranial nerves II through XII grossly intact. Normal speech, normal gait, no focal sensorimotor deficits _ SKIN: Warm, Dry, normal turgor, no rashes or lesions noted_ ED Treatment Course - LABORATORY CBC & Chemistry Diagram: 04/20/20 11:40 04/20/20 11:40 - RADIOLOGY Radiology Studies Ordered: Category Date Time Status CHEST X-RAY PORTABLE* [RAD] Stat Radiology 04/20/20 11:14 Ordered Medical Decision Making - Medical Decision Making 04/20/20 11:16 74M hx of MM, renal insufficiency, hepatocellular disase, sent in by Dr. Chadwick for fever of 101. Labs within normal limits 1 week ago. On April 17 WBC 11.4, plt 46, Cr 4.6. 04/20/20 12:51 CXR shows developing left infiltrate. Will start vanc zosyn. 04/20/20 13:27 Labs reviewed. Laboratory Last Values WBC 14.0 K/mm3 (4.0-10.0) H 04/20/20 11:40 RBC 2.52 M/mm3 (4.00-5.60) L 04/20/20 11:40 Hgb 8.6 GM/dL (11.7-16.9) L 04/20/20 11:40 Hct 26.4 % (35.4-49) L 04/20/20 11:40 MCV 104.7 fl (80-96) H 04/20/20 11:40 MCH 34.2 pg (25.7-33.7) H 04/20/20 11:40 MCHC 32.7 g/dl (32.0-35.9) 04/20/20 11:40 RDW 21.5 % (11.9-15.9) H 04/20/20 11:40 Plt Count 142 K/MM3 (134-434) D 04/20/20 11:40 MPV 8.3 fl (7.5-11.1) 04/20/20 11:40 Absolute Neuts (auto) 9.3 K/mm3 (1.5-8.0) H 04/20/20 11:40 Neutrophils % 66.2 % (42.8-82.8) 04/20/20 11:40 Lymphocytes % 18.2 % (8-40) D 04/20/20 11:40 Monocytes % 12.9 % (3.8-10.2) H 04/20/20 11:40 Eosinophils % 2.1 % (0-4.5) D 04/20/20 11:40 Basophils % 0.6 % (0-2.0) 04/20/20 11:40 Nucleated RBC % 0 % (0-0) 04/20/20 11:40 PT with INR 14.80 SEC (9.7-13.0) H 04/20/20 11:40 INR 1.25 (0.83-1.09) H 04/20/20 11:40 PTT (Actin FS) 33.1 SECONDS (25.2-36.5) 04/20/20 11:40 Sodium 135 mmol/L (136-145) L 04/20/20 11:40 Potassium 4.4 mmol/L (3.5-5.1) 04/20/20 11:40 Chloride 111 mmol/L (98-107) H 04/20/20 11:40 Carbon Dioxide 17 mmol/L (21-32) L 04/20/20 11:40 Anion Gap 8 MMOL/L (8-16) 04/20/20 11:40 BUN 51.4 mg/dL (7-18) H 04/20/20 11:40 Creatinine 5.3 mg/dL (0.55-1.3) H 04/20/20 11:40 Est GFR (CKD-EPI)AfAm 11.39 04/20/20 11:40 Est GFR (CKD-EPI)NonAf 9.83 04/20/20 11:40 Random Glucose 94 mg/dL (74-106) 04/20/20 11:40 Lactic Acid 1.5 mmol/L (0.4-2.0) 04/20/20 11:40 Calcium 7.9 mg/dL (8.5-10.1) L 04/20/20 11:40 Total Bilirubin 0.4 mg/dL (0.2-1) 04/20/20 11:40 AST 21 U/L (15-37) 04/20/20 11:40 ALT 38 U/L (13-61) 04/20/20 11:40 Alkaline Phosphatase 67 U/L (45-117) 04/20/20 11:40 Troponin I < 0.02 ng/ml (0.00-0.05) 04/20/20 11:40 Total Protein 8.3 g/dl (6.4-8.2) H 04/20/20 11:40 Albumin 2.8 g/dl (3.4-5.0) L 04/20/20 11:40 04/20/20 13:31 EKG shows 69 bpm, NSR, no ST elevation, no axis deviation, QTc 443. 04/20/20 15:39 D/w Dr. Garza who accepts the pt for admission. Discharge - Discharge Information Problems reviewed: Yes Clinical Impression/Diagnosis: Pneumonia, Fever, Sepsis Condition: Stable - Admission Yes - Follow up/Referral - Patient Discharge Instructions - Post Discharge Activity
--- NOTE | 2020-04-20 12:01 | EKG ---
Test Reason : Blood Pressure : / mmHG Vent. Rate : 069 BPM Atrial Rate : 069 BPM P-R Int : 120 ms QRS Dur : 086 ms QT Int : 414 ms P-R-T Axes : -09 020 088 degrees QTc Int : 443 ms NORMAL SINUS RHYTHM LOW VOLTAGE QRS NONSPECIFIC ST AND T WAVE ABNORMALITY ABNORMAL ECG WHEN COMPARED WITH ECG OF 27-MAR-2020 15:30, NONSPECIFIC T WAVE ABNORMALITY HAS REPLACED INVERTED T WAVES IN LATERAL LEADS Confirmed by DAPHNIE POOLE MD ([id number]) on 04/20/2020 12:00:23 PM Referred By: Confirmed By:DAPHNIE POOLE MD
[2020-04-20 12:24] LABS: BASO % 0.6 % (0-2.0); EOS % 2.1 % (0-4.5); HEMATOCRIT 26.4 % (35.4-49); HEMOGLOBIN 8.6 GM/dL (11.7-16.9); LYMPH % 18.2 % (8-40); MCH 34.2 pg (25.7-33.7); MCHC 32.7 g/dl (32.0-35.9); MEAN CELL VOLUME 104.7 fl (80-96); MEAN PLT VOLUME 8.3 fl (7.5-11.1); MONO % 12.9 % (3.8-10.2); NEUT % 66.2 % (42.8-82.8); PLATELET COUNT 142 K/MM3 (134-434); RBC 2.52 M/mm3 (4.00-5.60); RDW 21.5 % (11.9-15.9)
[2020-04-20 12:31] LABS: INR 1.25 (0.83-1.09); PROTHROMBIN TIME (PATIENT) 14.8 SEC (9.7-13.0)
[2020-04-20 12:33] LABS: ACTIVATED PTT 33.1 SECONDS (25.2-36.5)
[2020-04-20] MEDS ORDERED: ACETAMINOPHEN 1000 MG/100 ML VIAL (NON FORMULARY) IVPB ONE (12:33)
[2020-04-20 12:55] LABS: ALBUMIN 2.8 g/dl (3.4-5.0); BILIRUBIN,TOTAL 0.4 mg/dL (0.2-1); CALCIUM 7.9 mg/dL (8.5-10.1); CREATININE 5.3 mg/dL (0.55-1.3); POTASSIUM 4.4 mmol/L (3.5-5.1); TOT PROT 8.3 g/dl (6.4-8.2)
[2020-04-20] MEDS ORDERED: PIPERACILLIN/TAZOB 3.375 GM 3.375 GM in DEXTROSE 5%-WATER - 50 ML IVPB ONE (12:55)
[2020-04-20] MEDS ORDERED: VANCOMYCIN 1 GM in D5W (PRE-DOCKED) 1,000 MG/250 ML IVPB ONE (12:55)
[2020-04-20 13:07] LABS: BLOOD UREA NITROGEN 51.4 mg/dL (7-18)
[2020-04-20] MEDS ORDERED: PIPERACILLIN/TAZOB 3.375 GM 3.375 GM/50 ML BAG IVPB ONE (13:14)
[2020-04-20] MEDS ORDERED: VANCOMYCIN 1 GRAM (PRE-DOCKED) 1,000 MG/250 ML BAG IVPB ONE (13:14)
[2020-04-20] MEDS ORDERED: ACETAMINOPHEN INJECTION 100 ML IVPB ONE (13:14)
[2020-04-20 13:31] LABS: EPI CELLS 4 /uL (0-25.1); HYALINE CASTS 0 /uL (0-3.1); URINE APPEARANCE CLEAR; URINE BACTERIA 2 /uL (0-1359); URINE BILIRUBIN NEGATIVE (NEGATIVE); URINE COLOR YELLOW; URINE GLUCOSE (UA) NEGATIVE (NEGATIVE); URINE KETONE NEGATIVE (NEGATIVE); URINE LEUK ESTERASE NEGATIVE (NEGATIVE); URINE NITRITE NEGATIVE (NEGATIVE); URINE PROTEIN 3+ (NEGATIVE); URINE RBC 33 /uL (0-23.9); URINE UROBILINOGEN 0.2 mg/dL (0.2-1.0); URINE WBC 8 /uL (0-25.8)
--- NOTE | 2020-04-20 13:33 | PDOC ---
Attending Attestation - Resident Resident Name: Donald Lara - ED Attending Attestation I have performed the following: I have examined & evaluated the patient, The case was reviewed & discussed with the resident, I agree w/resident's findings & plan, Exceptions are as noted - HPI HPI: 04/20/20 13:35 Agree with resident HPI - Physicial Exam PE: 04/20/20 13:39 Agree with resident exam - Medical Decision Making 04/20/20 13:38 74 year old male with history of CKD 3, HTN, HLD, BPH, multiple myeloma on weekly chemo (last 1 week ago) presents to the ED with fever while at outpt visit with Dr. Chadwick. Pt was due for chemo today but 2/2 to fever was send to the ED for evaluation. Pt is asymptomatic but febrile here to 100.4. Labs with leaukocytosis to 14, not neutropenic. CXR with new infiltrate. Pt covered with vanc/zosyn given recent admission. He is HDS. Anticipate admission Discharge - Discharge Information Problems reviewed: Yes Clinical Impression/Diagnosis: Pneumonia - Follow up/Referral Referrals: Russell Kendall MD [Primary Care Provider] - - Patient Discharge Instructions - Post Discharge Activity
[2020-04-20 13:38] LABS: ANISOCYTOSIS 2+; MACROCYTOSIS 2+; PLATELET ESTIMATE DECREASED
--- NOTE | 2020-04-20 15:39 | PN ---
Teaching Attending Note Name of Resident: Jatinder Garza ATTENDING PHYSICIAN STATEMENT I saw and evaluated the patient. I reviewed the resident's note and discussed the case with the resident. I agree with the resident's findings and plan as documented. SUBJECTIVE: Fever OBJECTIVE: Vital Signs Temperature 100.4 F H 04/20/20 12:32 Pulse Rate 70 04/20/20 10:44 Respiratory Rate 18 04/20/20 10:44 Blood Pressure 150/91 04/20/20 10:44 O2 Sat by Pulse Oximetry (%) 97 04/20/20 10:44 General: Elderly man, comfortable, not in distress HEENT mucous membranes moist, no anemia, no jaundice, PERRLA, no nystagmus Neck: No JVD, supple, no bruit, thyroid palpably normal, normal carotid pulsations. Chest: Nontender, clear to auscultation bilaterally CVS: S1-S2 regular no murmur/gallop/rub Abdomen: Nondistended, soft, bowel sounds present. Extremities: No edema., No Calf tenderness, pulses present [employer] STAFF OFFICER: AO X3 , no gross motor sensory deficit CBC,CMP WBC 14.0 K/mm3 (4.0-10.0) H 04/20/20 11:40 RBC 2.52 M/mm3 (4.00-5.60) L 04/20/20 11:40 Hgb 8.6 GM/dL (11.7-16.9) L 04/20/20 11:40 Hct 26.4 % (35.4-49) L 04/20/20 11:40 MCV 104.7 fl (80-96) H 04/20/20 11:40 MCH 34.2 pg (25.7-33.7) H 04/20/20 11:40 MCHC 32.7 g/dl (32.0-35.9) 04/20/20 11:40 RDW 21.5 % (11.9-15.9) H 04/20/20 11:40 Plt Count 142 K/MM3 (134-434) D 04/20/20 11:40 MPV 8.3 fl (7.5-11.1) 04/20/20 11:40 Absolute Neuts (auto) 9.3 K/mm3 (1.5-8.0) H 04/20/20 11:40 Neutrophils % 66.2 % (42.8-82.8) 04/20/20 11:40 Neutrophils % (Manual) 68.0 % (42.8-82.8) 04/20/20 11:40 Band Neutrophils % 0.0 % 04/20/20 11:40 Lymphocytes % 18.2 % (8-40) D 04/20/20 11:40 Lymphocytes % (Manual) 25.0 % (8-40) D 04/20/20 11:40 Monocytes % 12.9 % (3.8-10.2) H 04/20/20 11:40 Monocytes % (Manual) 5 % (3.8-10.2) 04/20/20 11:40 Eosinophils % 2.1 % (0-4.5) D 04/20/20 11:40 Eosinophils % (Manual) 1.0 % (0-4.5) D 04/20/20 11:40 Basophils % 0.6 % (0-2.0) 04/20/20 11:40 Basophils % (Manual) 1.0 % (0-2.0) D 04/20/20 11:40 Myelocytes % (Man) 0 % (0-2) D 04/20/20 11:40 Promyelocytes % (Man) 0 % (0-2) 04/20/20 11:40 Blast Cells % (Manual) 0 % (0-0) 04/20/20 11:40 Nucleated RBC % 1 % (0-0) H 04/20/20 11:40 Metamyelocytes 0 % (0-2) D 04/20/20 11:40 Hypochromia 0 04/20/20 11:40 Platelet Estimate Decreased 04/20/20 11:40 Polychromasia 1+ 04/20/20 11:40 Poikilocytosis 0 04/20/20 11:40 Anisocytosis 2+ 04/20/20 11:40 Microcytosis 0 04/20/20 11:40 Macrocytosis 2+ 04/20/20 11:40 Sodium 135 mmol/L (136-145) L 04/20/20 11:40 Potassium 4.4 mmol/L (3.5-5.1) 04/20/20 11:40 Chloride 111 mmol/L (98-107) H 04/20/20 11:40 Carbon Dioxide 17 mmol/L (21-32) L 04/20/20 11:40 Anion Gap 8 MMOL/L (8-16) 04/20/20 11:40 BUN 51.4 mg/dL (7-18) H 04/20/20 11:40 Creatinine 5.3 mg/dL (0.55-1.3) H 04/20/20 11:40 Est GFR (CKD-EPI)AfAm 11.39 04/20/20 11:40 Est GFR (CKD-EPI)NonAf 9.83 04/20/20 11:40 Random Glucose 94 mg/dL (74-106) 04/20/20 11:40 Lactic Acid 1.5 mmol/L (0.4-2.0) 04/20/20 11:40 Calcium 7.9 mg/dL (8.5-10.1) L 04/20/20 11:40 Total Bilirubin 0.4 mg/dL (0.2-1) 04/20/20 11:40 AST 21 U/L (15-37) 04/20/20 11:40 ALT 38 U/L (13-61) 04/20/20 11:40 Alkaline Phosphatase 67 U/L (45-117) 04/20/20 11:40 Troponin I < 0.02 ng/ml (0.00-0.05) 04/20/20 11:40 Total Protein 8.3 g/dl (6.4-8.2) H 04/20/20 11:40 Albumin 2.8 g/dl (3.4-5.0) L 04/20/20 11:40 Chest x-ray: Left-sided infiltrate EKG: Heart rate 69 QTc [address] [place] [address]-T changes ASSESSMENT AND PLAN: 74-year-old man known case of multiple myeloma, hypertension, CKD stage IV recently discharged after treated for JAY, currently on chemotherapy today came for chemotherapy to oncology clinic where temperature was reported 100.4 transferred to ED for evaluation in the ED patient had elevated total white blood count 14 K, chest x-ray shows left-sided infiltrate has been admitted for pneumonia Active issues: 1. Healthcare associated pneumonia: Considering history of multiple myeloma recent hospitalization will put on cefepime and vancomycin by level [1 dose only] by level, ID consult, sputum and blood culture, follow-up clinical course. Tylenol 650 mg every 6 hourly as needed 2. Multiple myeloma: On chemotherapy follow-up oncology recommendations. 3. CKD stage IV: Renal function are stable follow-up BMP, follow-up nephrology if rising BUN/creatinine 4. Hypertension: Resume home medications DVT prophylaxis: Subcu heparin 5K every 8 hourly Case discussed with the resident.
[2020-04-20] MEDS ORDERED: SODIUM CHLORIDE 1,000 ML IV SCH (17:30)
--- NOTE | 2020-04-20 17:44 | HP ---
CHIEF COMPLAINT: fever, sent from chemo clinic for fever PCP: HISTORY OF PRESENT ILLNESS: 74M w/ pmh of HTN, HLD, BPH, CKD3, recent diagnosis of IgG lambda Multiple Myeloma(hyperdiploidy+, trisomy 15,7 monosomy 13) and recent admission(03/27/20 - 04/11/20) for worsened CKD, electrolyte derrangments, which was eventually attributed to Multiple Myeloma. Pt sent in from chemotherapy clinic(for 2nd round of weekly chemo) d/t to fever(?101F). Pt endorses feeling warm, ~4d prior, but his temperature was 99F. He denies cough, abnormal sputum production. Since his discharge on 04/11/2020, has been feeling occasionally weak, with low appetite. Thinks he lost 5lbs. Tends to nap often. Able to walk around corner of the block but feels fatigued. ER course was notable for: (1) Tmax 100.4F, HR 70, BP 150/91 (2) WBC 14 (3) Cr 5.3 (4) CXR: left-sided infiltrate Recent Travel: denies PAST MEDICAL HISTORY: as above PAST SURGICAL HISTORY: appendectomy Social History: Smoking: last smoked 40ys prior Alcohol: no drinking in 40ys Drugs: denies Allergies No Known Allergies Allergy (Verified 03/27/20 12:50) HOME MEDICATIONS: Home Medications Medication Instructions Recorded Amlodipine Besylate [Norvasc -] 10 mg PO DAILY #30 tablet 09/08/19 Tamsulosin HCl [Flomax -] 0.4 mg PO DAILY@0830 #30 cap.er.24h 09/08/19 Hydralazine HCl 25 mg PO TID 30 Days #90 tablet 11/08/19 Allopurinol [Zyloprim -] 150 mg PO DAILY #30 tablet 04/11/20 Docusate Sodium [Colace -] 100 mg PO BID #30 capsule 04/11/20 Furosemide [Lasix] 40 mg PO DAILY #7 tablet 04/11/20 Labetalol HCl 300 mg PO BID #30 tablet 04/11/20 Polyethylene Glycol 3350 [Miralax 17 gm PO BID #30 bottle 04/11/20 119 gm Btl -] Atorvastatin Calcium [Lipitor] 10 mg PO HS 04/20/20 REVIEW OF SYSTEMS CONSTITUTIONAL: fever, weakness, lost 5lbs in ~2weeks Absent: chills, diaphoresis, malaise, loss of appetite, weight change HEENT: Absent: rhinorrhea, nasal congestion, throat pain, throat swelling, difficulty swallowing, mouth swelling, ear pain, eye pain, visual changes CARDIOVASCULAR: Absent: chest pain, syncope, palpitations, irregular heart rate, lightheadedness, peripheral edema RESPIRATORY: Absent: cough, shortness of breath, dyspnea with exertion, orthopnea, wheezing, stridor, hemoptysis GASTROINTESTINAL: Absent: abdominal pain, abdominal distension, nausea, vomiting, diarrhea, constipation, melena, hematochezia GENITOURINARY: Absent: dysuria, frequency, urgency, hesitancy, hematuria, flank pain, genital pain MUSCULOSKELETAL: mild joint and back pain Absent: myalgia, joint swelling, back pain, neck pain SKIN: Absent: rash, itching, pallor HEMATOLOGIC/IMMUNOLOGIC: Absent: easy bleeding, easy bruising, lymphadenopathy, frequent infections ENDOCRINE: Absent: unexplained weight gain, unexplained weight loss, heat intolerance, cold intolerance NEUROLOGIC: Absent: headache, focal weakness or paresthesias, dizziness, unsteady gait, seizure, mental status changes, bladder or bowel incontinence PSYCHIATRIC: Absent: anxiety, depression, suicidal or homicidal ideation, hallucinations. PHYSICAL EXAMINATION Vital Signs - 24 hr 04/20/20 04/20/20 04/20/20 10:44 12:32 15:58 Temperature 98.1 F 100.4 F H 98.7 F Pulse Rate 70 Pulse Rate [ 58 L Right Radial] Respiratory 18 18 Rate Blood Pressure 150/91 Blood Pressure 108/59 L [Left Arm] O2 Sat by Pulse 97 97 Oximetry (%) GENERAL: Awake, alert, and fully oriented. NAD. Thin HEAD: NC/AT. No temporal wasting EYES: sclera anicteric, conjunctiva clear and w/ pallor. EARS, NOSE, THROAT: oropharynx clear without exudates. Moist mucous membranes. NECK: Normal range of motion, supple without lymphadenopathy, JVD, or masses. LUNGS: Breath sounds equal, Mild crackles of Left lower base. No accessory muscle use. Speaking full sentences HEART: Regular rate and rhythm, normal S1 and S2 without murmur, rub or gallop. ABDOMEN: Soft, nontender, not distended, no guarding, no rebound, no masses. MUSCULOSKELETAL: Normal range of motion at all joints. No bony deformities or tenderness. No CVA tenderness. UPPER EXTREMITIES: 2+ pulses, warm, well-perfused. No cyanosis. No clubbing. No peripheral edema. LOWER EXTREMITIES: 2+ pulses, warm, well-perfused. No calf tenderness. No peripheral edema. NEUROLOGICAL: Normal speech. Moving all extremities equally Laboratory Results - last 24 hr 04/20/20 04/20/20 04/20/20 11:19 11:40 11:40 WBC RBC Hgb Hct MCV MCH MCHC RDW Plt Count MPV Absolute Neuts (auto) Neutrophils % Neutrophils % (Manual) Band Neutrophils % Lymphocytes % Lymphocytes % (Manual) Monocytes % Monocytes % (Manual) Eosinophils % Eosinophils % (Manual) Basophils % Basophils % (Manual) Myelocytes % (Man) Promyelocytes % (Man) Blast Cells % (Manual) Nucleated RBC % Metamyelocytes Hypochromia Platelet Estimate Polychromasia Poikilocytosis Anisocytosis Microcytosis Macrocytosis PT with INR 14.80 H INR 1.25 H PTT (Actin FS) 33.1 Sodium Potassium Chloride Carbon Dioxide Anion Gap BUN Creatinine Est GFR (CKD-EPI)AfAm Est GFR (CKD-EPI)NonAf Random Glucose Lactic Acid Calcium Total Bilirubin AST ALT Alkaline Phosphatase Troponin I < 0.02 Total Protein Albumin Urine Color Yellow Urine Appearance Clear Urine pH 6.0 Ur Specific [place] 1.014 Urine Protein 3+ H Urine Glucose (UA) Negative Urine Ketones Negative Urine Blood 1+ H Urine Nitrite Negative Urine Bilirubin Negative Urine Urobilinogen 0.2 Ur Leukocyte Esterase Negative Urine WBC (Auto) 8 Urine RBC (Auto) 33 Urine Casts (Auto) 0 U Epithel Cells (Auto) 4 Urine Bacteria (Auto) 2 04/20/20 04/20/20 04/20/20 11:40 11:40 11:40 WBC 14.0 H RBC 2.52 L Hgb 8.6 L Hct 26.4 L MCV 104.7 H MCH 34.2 H MCHC 32.7 RDW 21.5 H Plt Count 142 D MPV 8.3 Absolute Neuts (auto) 9.3 H Neutrophils % 66.2 Neutrophils % (Manual) 68.0 Band Neutrophils % 0.0 Lymphocytes % 18.2 D Lymphocytes % (Manual) 25.0 D Monocytes % 12.9 H Monocytes % (Manual) 5 Eosinophils % 2.1 D Eosinophils % (Manual) 1.0 D Basophils % 0.6 Basophils % (Manual) 1.0 D Myelocytes % (Man) 0 D Promyelocytes % (Man) 0 Blast Cells % (Manual) 0 Nucleated RBC % 1 H Metamyelocytes 0 D Hypochromia 0 Platelet Estimate Decreased Polychromasia 1+ Poikilocytosis 0 Anisocytosis 2+ Microcytosis 0 Macrocytosis 2+ PT with INR INR PTT (Actin FS) Sodium 135 L Potassium 4.4 Chloride 111 H Carbon Dioxide 17 L Anion Gap 8 BUN 51.4 H Creatinine 5.3 H Est GFR (CKD-EPI)AfAm 11.39 Est GFR (CKD-EPI)NonAf 9.83 Random Glucose 94 Lactic Acid 1.5 Calcium 7.9 L Total Bilirubin 0.4 AST 21 ALT 38 Alkaline Phosphatase 67 Troponin I Total Protein 8.3 H Albumin 2.8 L Urine Color Urine Appearance Urine pH Ur Specific [place] Urine Protein Urine Glucose (UA) Urine Ketones Urine Blood Urine Nitrite Urine Bilirubin Urine Urobilinogen Ur Leukocyte Esterase Urine WBC (Auto) Urine RBC (Auto) Urine Casts (Auto) U Epithel Cells (Auto) Urine Bacteria (Auto) ASSESSMENT/PLAN: 74M w/ pmh of HTN, HLD, BPH, CKD3, recent diagnosis of IgG lambda Multiple Myeloma(hyperdiploidy+, trisomy 15,7 monosomy 13) and recent admission(03/27/20 - 04/11/20) for worsened CKD, electrolyte derrangments, which was eventually attributed to Multiple Myeloma. Pt sent in from chemotherapy clinic(for 2nd round of weekly chemo) d/t to fever(?101F). Fever 100.4F in the ED. CXR suggestive of Left-sided infiltrate. Admitted for Left-sided Pneumonia in the setting a pt recently discharged and actively on chemotherapy. #fever --likely Left-sided Pneumonia > Tmax 100.4F > WBC 14 > CXR: left-sided infiltrate - abx regimen: --cefepime + vancomycin d1 - ID consult([facility]): --recs pending #CKD3 --2/2 multiple myeloma > Cr 5.3 - cw lasix 40 PO - cw sodium bicarb(1,300 BID) - renal consult([facility]) #chronic HTN: - cw hydralazine 25mg TID, labetalol 200mg BID, amlodipine 10mg QD #chronic BPH: - cw Tamsulosin #chronic HLD: - cw atorvastatin FEN - no mIVF - renal diet DVT PPX - SQH Visit type - Emergency Visit Emergency Visit: Yes ED Registration Date: 04/20/20 Care time: The patient presented to the Emergency Department on the above date and was hospitalized for further evaluation of their emergent condition. - New Patient This patient is new to me today: Yes Date on this admission: 04/20/20 - Critical Care Critical Care patient: No ATTENDING PHYSICIAN STATEMENT I saw and evaluated the patient. I reviewed the resident's note and discussed the case with the resident. I agree with the resident's findings and plan as documented. SUBJECTIVE: OBJECTIVE: ASSESSMENT AND PLAN:
--- NOTE | 2020-04-20 18:22 | CONSULT ---
Consultation: REQUESTING PROVIDER: Dr. Chadwick CONSULT REQUEST: We have been asked to medically evaluate this patient for Fever. HISTORY OF PRESENT ILLNESS: Pt. is a brazilian-speaking 74 y.o. M w/ PMHx. 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 Chadwick's office for fever. Pt. was supposed to receive the second round of chemo today when Pt. was noted to have a fever to 101.3. Pt. in the ED had a temperature to 100.4 and was found to have leukocytosis to 14k. Pt. had CXR significant for developing PNA in LLL. Per Pt. he had not have any symptoms of fever, cough, shortness of breath, diarrhea, abdominal pain, chest pain, swelling nausea or vomiting. Pt. endorses a good appetite. Pt. states he has some burning? sensation when urinating but then proceeds to state he takes a pill to help him urinate better. Per daughter who loves with Pt., he had a temp to 99.6 4 days ago, has had intermittent appetite and has had some weakness since discharge. Pt. was started on Vancomycin and Zosyn in the ED. Translation provided by [employer] #[id number] and Daughter at bedside. REVIEW OF SYSTEMS: As above PHYSICAL EXAMINATION Vital Signs - 24 hr 04/20/20 04/20/20 04/20/20 10:44 12:32 15:58 Temperature 98.1 F 100.4 F H 98.7 F Pulse Rate 70 Pulse Rate [ 58 L Right Radial] Respiratory 18 18 Rate Blood Pressure 150/91 Blood Pressure 108/59 L [Left Arm] O2 Sat by Pulse 97 97 Oximetry (%) GENERAL: Awake, alert, and oriented, in no acute distress. HEAD: Normal with no signs of trauma. EYES: Pupils equal, round and reactive to light, extraocular movements intact, sclera anicteric, conjunctiva clear. EARS, NOSE, THROAT: Ears normal, nares patent, oropharynx clear without exudates. Moist mucous membranes. LUNGS: Faint crackles at LLL. No accessory muscle use. HEART: Regular rate and rhythm, normal S1 and S2 without murmur ABDOMEN: Soft, nontender, not distended, normoactive bowel sounds, no guarding, no rebound, no masses. MUSCULOSKELETAL: Normal range of motion at all joints. No bony deformities or tenderness. No CVA tenderness. UPPER EXTREMITIES: 2+ radial pulses, warm, well-perfused. No cyanosis. No clubbing.No peripheral edema. LOWER EXTREMITIES: 2+ dorsal pedal pulses, warm, well-perfused. No calf tenderness. No peripheral edema. NEUROLOGICAL: Normal speech. Gait not assessed PSYCHIATRIC: Cooperative. Good eye contact. Appropriate mood and affect. SKIN: Warm, dry, normal turgor Laboratory Results - last 24 hr 04/20/20 04/20/20 04/20/20 11:19 11:40 11:40 WBC RBC Hgb Hct MCV MCH MCHC RDW Plt Count MPV Absolute Neuts (auto) Neutrophils % Neutrophils % (Manual) Band Neutrophils % Lymphocytes % Lymphocytes % (Manual) Monocytes % Monocytes % (Manual) Eosinophils % Eosinophils % (Manual) Basophils % Basophils % (Manual) Myelocytes % (Man) Promyelocytes % (Man) Blast Cells % (Manual) Nucleated RBC % Metamyelocytes Hypochromia Platelet Estimate Polychromasia Poikilocytosis Anisocytosis Microcytosis Macrocytosis PT with INR 14.80 H INR 1.25 H PTT (Actin FS) 33.1 Sodium Potassium Chloride Carbon Dioxide Anion Gap BUN Creatinine Est GFR (CKD-EPI)AfAm Est GFR (CKD-EPI)NonAf Random Glucose Lactic Acid Calcium Total Bilirubin AST ALT Alkaline Phosphatase Troponin I < 0.02 Total Protein Albumin Urine Color Yellow Urine Appearance Clear Urine pH 6.0 Ur Specific [place] 1.014 Urine Protein 3+ H Urine Glucose (UA) Negative Urine Ketones Negative Urine Blood 1+ H Urine Nitrite Negative Urine Bilirubin Negative Urine Urobilinogen 0.2 Ur Leukocyte Esterase Negative Urine WBC (Auto) 8 Urine RBC (Auto) 33 Urine Casts (Auto) 0 U Epithel Cells (Auto) 4 Urine Bacteria (Auto) 2 04/20/20 04/20/20 04/20/20 11:40 11:40 11:40 WBC 14.0 H RBC 2.52 L Hgb 8.6 L Hct 26.4 L MCV 104.7 H MCH 34.2 H MCHC 32.7 RDW 21.5 H Plt Count 142 D MPV 8.3 Absolute Neuts (auto) 9.3 H Neutrophils % 66.2 Neutrophils % (Manual) 68.0 Band Neutrophils % 0.0 Lymphocytes % 18.2 D Lymphocytes % (Manual) 25.0 D Monocytes % 12.9 H Monocytes % (Manual) 5 Eosinophils % 2.1 D Eosinophils % (Manual) 1.0 D Basophils % 0.6 Basophils % (Manual) 1.0 D Myelocytes % (Man) 0 D Promyelocytes % (Man) 0 Blast Cells % (Manual) 0 Nucleated RBC % 1 H Metamyelocytes 0 D Hypochromia 0 Platelet Estimate Decreased Polychromasia 1+ Poikilocytosis 0 Anisocytosis 2+ Microcytosis 0 Macrocytosis 2+ PT with INR INR PTT (Actin FS) Sodium 135 L Potassium 4.4 Chloride 111 H Carbon Dioxide 17 L Anion Gap 8 BUN 51.4 H Creatinine 5.3 H Est GFR (CKD-EPI)AfAm 11.39 Est GFR (CKD-EPI)NonAf 9.83 Random Glucose 94 Lactic Acid 1.5 Calcium 7.9 L Total Bilirubin 0.4 AST 21 ALT 38 Alkaline Phosphatase 67 Troponin I Total Protein 8.3 H Albumin 2.8 L Urine Color Urine Appearance Urine pH Ur Specific [place] Urine Protein Urine Glucose (UA) Urine Ketones Urine Blood Urine Nitrite Urine Bilirubin Urine Urobilinogen Ur Leukocyte Esterase Urine WBC (Auto) Urine RBC (Auto) Urine Casts (Auto) U Epithel Cells (Auto) Urine Bacteria (Auto) Active Medications Generic Name Dose Route Start Last Admin Trade Name Freq PRN Reason Stop Dose Admin Allopurinol 150 mg 04/21/20 10:00 Zyloprim - PO DAILY [facility] Amlodipine Besylate 10 mg 04/21/20 10:00 Norvasc - PO DAILY [facility] Atorvastatin Calcium 10 mg 04/20/20 22:00 Lipitor - PO HS [facility] Furosemide 40 mg 04/21/20 10:00 Lasix - PO DAILY [facility] Heparin Sodium (Porcine) 5,000 unit 04/20/20 22:00 Heparin - SQ TID [facility] Hydralazine HCl 25 mg 04/20/20 22:00 Apresoline - PO TID [facility] Sodium Chloride 1,000 mls @ 83 mls/hr 04/20/20 17:30 Normal Saline - IV ASDIR [facility] Cefepime HCl 0.5 gm/ Dextrose 100 mls @ 200 mls/hr 04/20/20 22:00 IVPB DAILY [facility] Protocol Cefepime HCl 0.5 gm/ Dextrose 100 mls @ 200 mls/hr 04/20/20 22:00 IVPB 04/20/20 22:29 ONCE ONE Protocol Labetalol HCl 300 mg 04/20/20 22:00 Normodyne - PO BID [facility] Tamsulosin HCl 0.4 mg 04/21/20 08:30 Flomax - PO DAILY@0830 [facility] Vancomycin HCl 1,000 mg 04/21/20 13:00 Vancomycin (Pre-Docked) IVPB DAILY [facility] Protocol ASSESSMENT/PLAN: Pt. is a brazilian-speaking 74 y.o. M w/ PMHx. 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 Chadwick's office for fever. #Community Acquired Pneumonia CXR as noted above Leukocytosis with fever f/u BCx UA Negative would suggest switching to Ceftriaxone and Azithromycin as Pt. does not have history of resistance, and to preserve renal function. trend CBC f/u COVID swab #HTN #HLD #BPH #CKD As per primary team #DVT Ppx. would suggest Lovenox renally dosed Dispo: We will continue to follow the patient. Thank you for this consultative opportunity. Visit type - Emergency Visit Emergency Visit: Yes ED Registration Date: 04/20/20 Care time: The patient presented to the Emergency Department on the above date and was hospitalized for further evaluation of their emergent condition. - New Patient This patient is new to me today: No - Critical Care Critical Care patient: No ATTENDING PHYSICIAN STATEMENT I saw and evaluated the patient. I reviewed the resident's note and discussed the case with the resident. I agree with the resident's findings and plan as documented. SUBJECTIVE: OBJECTIVE: ASSESSMENT AND PLAN:
--- NOTE | 2020-04-20 18:57 | PN ---
Teaching Attending Note Name of Resident: Albaro Carnes ATTENDING PHYSICIAN STATEMENT I saw and evaluated the patient. I reviewed the resident's note and discussed the case with the resident. I agree with the resident's findings and plan as documented. 74 y.o. M w/ PMHx. of HTN, HLD, BPH, CKD, and recently diagnosed with Multiple Myeloma S/p C1 of CyborD 04-10-2020. C2 due today, however developed fever to 101.3. C2 held. Has mild, chronic cough. Mild dysuria. No n/v/d, cp, sob, or LBP. Fair appetite. Not neutropenic. Non-focal exam Cxr: L. infiltrate. Abx started. Possible pneumonia. -c/w abx's -f/u BCX, UCX -c/w current meds -outpt tx for myeloma. -d/w House Staff
[2020-04-20] MEDS ORDERED: ACETAMINOPHEN 500 MG TABLET (FP) PO PRN (19:19)
[2020-04-20] MEDS ORDERED: CEFEPIME 0.5 GM in DEXTROSE 5%-WATER - 100 ML IVPB ONE (22:00)
[2020-04-20] MEDS: LABETALOL HCL 100 MG TABLET (FP) PO SCH (22:19)
[2020-04-20] MEDS: hydrALAZINE HCL 25 MG TABLET (FP) PO SCH (22:19)
[2020-04-20] MEDS: ATORVASTATIN CA 10 MG TABLET (FP) PO SCH (22:19)
[2020-04-20] MEDS: HEPARIN NA (PORCINE) 5,000 UNITS/ML 1ML VIAL SQ SCH (22:20)
[2020-04-21] MEDS: hydrALAZINE HCL 25 MG TABLET (FP) PO SCH ×3 (06:32→21:19)
[2020-04-21] MEDS: HEPARIN NA (PORCINE) 5,000 UNITS/ML 1ML VIAL SQ SCH ×3 (06:32→21:20)
--- NOTE | 2020-04-21 06:37 | PN ---
Physical Exam: SUBJECTIVE: Patient seen and examined Patient was reported at bedside while he was eating breakfast. The patient denies any further complaints or overnight events. Patients fever resolved overnight OBJECTIVE: Vital Signs Period Temp Pulse Resp BP Sys/Judd Pulse Ox Last 24 Hr 98.1 F-100.4 F 53-70 18-18 108-150/59-91 95-97 GENERAL: The patient is awake, alert, and fully oriented, in no acute distress. HEAD: Normal with no signs of trauma. EYES: PERRL, extraocular movements intact, sclera anicteric, conjunctiva clear. No ptosis. ENT: Ears normal, nares patent, oropharynx clear without exudates, moist mucous membranes. NECK: Trachea midline, full range of motion, supple. LUNGS: Breath sounds equal, clear to auscultation bilaterally, no wheezes, no crackles, no accessory muscle use. HEART: Regular rate and rhythm, S1, S2 without murmur, rub or gallop. ABDOMEN: Soft, nontender, nondistended, normoactive bowel sounds, no guarding, no rebound, no hepatosplenomegaly, no masses. EXTREMITIES: 2+ pulses, warm, well-perfused, no edema. NEUROLOGICAL: Cranial nerves II through XII grossly intact. Normal speech, gait not observed. PSYCH: Normal mood, normal affect. SKIN: Warm, dry, normal turgor, no rashes or lesions noted Laboratory Results - last 24 hr 04/20/20 04/20/20 04/20/20 11:19 11:40 11:40 WBC RBC Hgb Hct MCV MCH MCHC RDW Plt Count MPV Absolute Neuts (auto) Neutrophils % Neutrophils % (Manual) Band Neutrophils % Lymphocytes % Lymphocytes % (Manual) Monocytes % Monocytes % (Manual) Eosinophils % Eosinophils % (Manual) Basophils % Basophils % (Manual) Myelocytes % (Man) Promyelocytes % (Man) Blast Cells % (Manual) Nucleated RBC % Metamyelocytes Hypochromia Platelet Estimate Polychromasia Poikilocytosis Anisocytosis Microcytosis Macrocytosis PT with INR 14.80 H INR 1.25 H PTT (Actin FS) 33.1 Sodium Potassium Chloride Carbon Dioxide Anion Gap BUN Creatinine Est GFR (CKD-EPI)AfAm Est GFR (CKD-EPI)NonAf Random Glucose Lactic Acid Calcium Total Bilirubin AST ALT Alkaline Phosphatase Troponin I < 0.02 Total Protein Albumin Urine Color Yellow Urine Appearance Clear Urine pH 6.0 Ur Specific [place] 1.014 Urine Protein 3+ H Urine Glucose (UA) Negative Urine Ketones Negative Urine Blood 1+ H Urine Nitrite Negative Urine Bilirubin Negative Urine Urobilinogen 0.2 Ur Leukocyte Esterase Negative Urine WBC (Auto) 8 Urine RBC (Auto) 33 Urine Casts (Auto) 0 U Epithel Cells (Auto) 4 Urine Bacteria (Auto) 2 04/20/20 04/20/20 04/20/20 11:40 11:40 11:40 WBC 14.0 H RBC 2.52 L Hgb 8.6 L Hct 26.4 L MCV 104.7 H MCH 34.2 H MCHC 32.7 RDW 21.5 H Plt Count 142 D MPV 8.3 Absolute Neuts (auto) 9.3 H Neutrophils % 66.2 Neutrophils % (Manual) 68.0 Band Neutrophils % 0.0 Lymphocytes % 18.2 D Lymphocytes % (Manual) 25.0 D Monocytes % 12.9 H Monocytes % (Manual) 5 Eosinophils % 2.1 D Eosinophils % (Manual) 1.0 D Basophils % 0.6 Basophils % (Manual) 1.0 D Myelocytes % (Man) 0 D Promyelocytes % (Man) 0 Blast Cells % (Manual) 0 Nucleated RBC % 1 H Metamyelocytes 0 D Hypochromia 0 Platelet Estimate Decreased Polychromasia 1+ Poikilocytosis 0 Anisocytosis 2+ Microcytosis 0 Macrocytosis 2+ PT with INR INR PTT (Actin FS) Sodium 135 L Potassium 4.4 Chloride 111 H Carbon Dioxide 17 L Anion Gap 8 BUN 51.4 H Creatinine 5.3 H Est GFR (CKD-EPI)AfAm 11.39 Est GFR (CKD-EPI)NonAf 9.83 Random Glucose 94 Lactic Acid 1.5 Calcium 7.9 L Total Bilirubin 0.4 AST 21 ALT 38 Alkaline Phosphatase 67 Troponin I Total Protein 8.3 H Albumin 2.8 L Urine Color Urine Appearance Urine pH Ur Specific [place] Urine Protein Urine Glucose (UA) Urine Ketones Urine Blood Urine Nitrite Urine Bilirubin Urine Urobilinogen Ur Leukocyte Esterase Urine WBC (Auto) Urine RBC (Auto) Urine Casts (Auto) U Epithel Cells (Auto) Urine Bacteria (Auto) Active Medications Generic Name Dose Route Start Last Admin Trade Name Freq PRN Reason Stop Dose Admin Acetaminophen 500 mg 04/20/20 19:19 Tylenol - PO Q6H PRN FEVER Allopurinol 150 mg 04/21/20 10:00 Zyloprim - PO DAILY [facility] Amlodipine Besylate 10 mg 04/21/20 10:00 Norvasc - PO DAILY [facility] Atorvastatin Calcium 10 mg 04/20/20 22:00 04/20/20 22:19 Lipitor - PO 10 mg HS [facility] Administration Furosemide 40 mg 04/21/20 10:00 Lasix - PO DAILY [facility] Heparin Sodium (Porcine) 5,000 unit 04/20/20 22:00 04/21/20 06:32 Heparin - SQ 5,000 unit TID [facility] Administration Hydralazine HCl 25 mg 04/20/20 22:00 04/21/20 06:32 Apresoline - PO 25 mg TID [facility] Administration Sodium Chloride 1,000 mls @ 83 mls/hr 04/20/20 17:30 04/20/20 18:53 Normal Saline - IV 83 mls/hr ASDIR [facility] Administration Cefepime HCl 0.5 gm/ Dextrose 100 mls @ 200 mls/hr 04/20/20 22:00 IVPB DAILY [facility] Protocol Labetalol HCl 300 mg 04/20/20 22:00 04/20/20 22:19 Normodyne - PO 300 mg BID [facility] Administration Tamsulosin HCl 0.4 mg 04/21/20 08:30 Flomax - PO DAILY@0830 [facility] ASSESSMENT/PLAN: HISTORY OF PRESENT ILLNESS: Apolinar Hemphill is a malawian-speaking 74 y.o. M w/ PMHx. of HTN, HLD, BPH, CKD (Stage 4/5), and recently diagnosed with Multiple Myeloma(s/p Dexamethasone and 1 cycle of Cytoxan and Velcade) who presents from Dr. Chadwick's office after his second session of chemotherapy for a fever 101.5 F. #Hospital acquired pneumonia - It has been within 90 days of discharge - CXR shows a L sided infiltrate - Patient is stable and has COVID pending #Acute kidney injury secondary to Multiple Myeloma - BM bx on past admission reveals 20-100% plasma cells verifying biopsy - Patient continued on bicarb/allopurinol for increased cell turnover and uric acid accumulation - Dr. Blount consulted - nephrology #HYPERTENSION - HOME MEDICATIONS: - LABETALOL - HYDRALIZINE - AMLODIPINE #BPH - HOME MEDICATIONS: - Tamsulosin. #HLD - HOME MEDICATIONS: - LIPITOR #DVT Px - Heparin SQ BID Visit type - Emergency Visit Emergency Visit: Yes ED Registration Date: 04/20/20 Care time: The patient presented to the Emergency Department on the above date and was hospitalized for further evaluation of their emergent condition. - New Patient This patient is new to me today: No - Critical Care Critical Care patient: No - Discharge Referral Referred to [facility] Med P.C.: No ATTENDING PHYSICIAN STATEMENT I saw and evaluated the patient. I reviewed the resident's note and discussed the case with the resident. I agree with the resident's findings and plan as documented. SUBJECTIVE: OBJECTIVE: ASSESSMENT AND PLAN:
[2020-04-21 08:30] LABS: HEMATOCRIT 25.8 % (35.4-49); HEMOGLOBIN 8.5 GM/dL (11.7-16.9); MCH 33.9 pg (25.7-33.7); MCHC 32.7 g/dl (32.0-35.9); MEAN CELL VOLUME 103.7 fl (80-96); MEAN PLT VOLUME 8.2 fl (7.5-11.1); PLATELET COUNT 139 K/MM3 (134-434); RBC 2.49 M/mm3 (4.00-5.60); RDW 20.5 % (11.9-15.9); WHITE BLOOD COUNT 13.3 K/mm3 (4.0-10.0)
[2020-04-21 09:02] LABS: POTASSIUM 4.3 mmol/L (3.5-5.1)
[2020-04-21 09:06] LABS: ALBUMIN 2.7 g/dl (3.4-5.0); BILIRUBIN,TOTAL 0.4 mg/dL (0.2-1); BLOOD UREA NITROGEN 50.2 mg/dL (7-18); CALCIUM 7.2 mg/dL (8.5-10.1); MAGNESIUM 1.8 mg/dL (1.8-2.4); PHOSPHOROUS 2.2 mg/dL (2.5-4.9); TOT PROT 8.2 g/dl (6.4-8.2)
[2020-04-21] MEDS ORDERED: FUROSEMIDE 40 MG TABLET (FP) PO SCH (10:00)
[2020-04-21] MEDS: amLODIPine BESYLATE 10 MG TABLET (FP) PO SCH (10:22)
[2020-04-21] MEDS: ALLOPURINOL 100 MG TABLET (FP) PO SCH (10:22)
[2020-04-21] MEDS: TAMSULOSIN HCL 0.4 MG CAP PO SCH (10:22)
[2020-04-21] MEDS: LABETALOL HCL 100 MG TABLET (FP) PO SCH ×2 (10:22→21:18)
[2020-04-21] MEDS ORDERED: VANCOMYCIN 1 GM in D5W (PRE-DOCKED) 1,000 MG/250 ML IVPB SCH (13:00)
--- NOTE | 2020-04-21 13:53 | CONSULT ---
Consult Consult Specialty:: Nephrology Reason for Consultation:: CKD - History of Present Illness Chief Complaint: fever History of Present Illness: Pt is a 74 year old male with pmhx of ckd, htn, hld, and multiple myeloma who presents to the ER with fever. He was admitted to [facility]. He is on chemo for myeloma. 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 He complains of cough. He was recently discharged from the hospital. - History Source History Provided By: Patient - Past Medical History Cardio/Vascular: Yes: HTN Renal/: Yes: Renal Inusuff - Alcohol/Substance Use Hx Alcohol Use: No - Smoking History Smoking history: Never smoked Have you smoked in the past 12 months: No Home Medications - Allergies Allergies/Adverse Reactions: Allergies Allergy/AdvReac Type Severity Reaction Status Date / Time No Known Allergies Allergy Verified 03/27/20 12:50 - Home Medications Home Medications: Ambulatory Orders Amlodipine Besylate [Norvasc -] 10 mg PO DAILY #30 tablet 09/08/19 Tamsulosin HCl [Flomax -] 0.4 mg PO DAILY@0830 #30 cap.er.24h 09/08/19 Hydralazine HCl 25 mg PO TID 30 Days #90 tablet 11/08/19 Allopurinol [Zyloprim -] 150 mg PO DAILY #30 tablet 04/11/20 Docusate Sodium [Colace -] 100 mg PO BID #30 capsule 04/11/20 Furosemide [Lasix] 40 mg PO DAILY #7 tablet 04/11/20 Labetalol HCl 300 mg PO BID #30 tablet 04/11/20 Polyethylene Glycol 3350 [Miralax 119 gm Btl -] 17 gm PO BID #30 bottle 04/11/20 Atorvastatin Calcium [Lipitor] 10 mg PO HS 04/20/20 Review of Systems - Review of Systems Constitutional: reports: Loss of Appetite, Weakness Eyes: reports: No Symptoms HENT: reports: No Symptoms Neck: reports: No Symptoms Cardiovascular: denies: Edema Respiratory: reports: Cough Gastrointestinal: reports: No Symptoms Genitourinary: reports: No Symptoms Musculoskeletal: reports: No Symptoms Integumentary: reports: No Symptoms Neurological: reports: No Symptoms Endocrine: reports: No Symptoms Hematology/Lymphatic: reports: No Symptoms Psychiatric: reports: No Symptoms Physical Exam Vital Signs: Vital Signs Temperature 99.4 F 04/21/20 07:00 Pulse Rate 65 04/21/20 07:00 Respiratory Rate 18 04/21/20 07:00 Blood Pressure 138/80 04/21/20 07:00 O2 Sat by Pulse Oximetry (%) 96 04/21/20 07:00 Constitutional: Yes: Calm Eyes: Yes: Conjunctiva Clear HENT: Yes: Atraumatic Neck: Yes: Supple Cardiovascular: Yes: S1, S2 Respiratory: Yes: CTA Bilaterally Gastrointestinal: Yes: Soft Renal/: Yes: WNL Extremities: Yes: WNL Edema: No Neurological: Yes: Oriented Psychiatric: Yes: Oriented Labs: CBC, BMP 04/21/20 08:15 04/21/20 08:15 Imaging - Results Chest X-ray: Report Reviewed Assessment/Plan Current Medications Generic Name Dose Route Start Last Admin Trade Name Freq PRN Reason Stop Dose Admin Acetaminophen 500 mg 04/20/20 19:19 Tylenol - PO Q6H PRN FEVER Allopurinol 150 mg 04/21/20 10:00 04/21/20 10:22 Zyloprim - PO 150 mg DAILY BRODIE Administration Amlodipine Besylate 10 mg 04/21/20 10:00 04/21/20 10:22 Norvasc - PO 10 mg DAILY BRODIE Administration Atorvastatin Calcium 10 mg 04/20/20 22:00 04/20/20 22:19 Lipitor - PO 10 mg HS BRODIE Administration Furosemide 40 mg 04/21/20 10:00 04/21/20 10:22 Lasix - PO 40 mg DAILY BRODIE Administration Heparin Sodium (Porcine) 5,000 unit 04/20/20 22:00 04/21/20 06:32 Heparin - SQ 5,000 unit TID BRODIE Administration Hydralazine HCl 25 mg 04/20/20 22:00 04/21/20 06:32 Apresoline - PO 25 mg TID BRODIE Administration Sodium Chloride 1,000 mls @ 83 mls/hr 04/20/20 17:30 04/20/20 18:53 Normal Saline - IV 83 mls/hr ASDIR BRODIE Administration Cefepime HCl 0.5 gm/ Dextrose 100 mls @ 200 mls/hr 04/20/20 22:00 IVPB DAILY BRODIE Protocol Labetalol HCl 300 mg 04/20/20 22:00 04/21/20 10:22 Normodyne - PO 300 mg BID BRODIE Administration Tamsulosin HCl 0.4 mg 04/21/20 08:30 04/21/20 10:22 Flomax - PO 0.4 mg DAILY@0830 BRODIE Administration Impression 1. CKD 2. HTN 3. JAY 4. HLD 5. protienuria 6. multiple myeloma 7. hypercalcemia 8. PNA Plan - hold lasix - change fluids to 1/2 ns and decrease rate - restart po bicarb - repeat labs in am - senior mobile solutions architect improving - renal dose meds
[2020-04-21] MEDS ORDERED: SODIUM CHLORIDE 0.45% 1,000 ML IV SCH (14:00)
--- NOTE | 2020-04-21 14:17 | PN ---
Teaching Attending Note Name of Resident: Nicanor Bui ATTENDING PHYSICIAN STATEMENT I saw and evaluated the patient. I reviewed the resident's note and discussed the case with the resident. I agree with the resident's findings and plan as documented. SUBJECTIVE: Feeling well, no complaints. OBJECTIVE: Tmax 101.3, Hemodynamically Stable. Last Vital Signs Temp Pulse Resp BP Pulse Ox 98.3 F 65 18 108/52 L 96 04/21/20 13:58 04/21/20 13:58 04/21/20 13:58 04/21/20 13:58 04/21/20 13:58 Heart - S1, S2, RRR Lungs - L basal crackles. Abdomen - soft, non-tender. Bowel Sounds normal. Extremities - Mild Edema, venous stasis skin changes, no calf tenderness. Neuro - AAO x 3. Tone/Power normal. Laboratory Results - last 24 hr 04/21/20 04/21/20 08:15 08:15 WBC 13.3 H RBC 2.49 L Hgb 8.5 L Hct 25.8 L MCV 103.7 H MCH 33.9 H MCHC 32.7 RDW 20.5 H Plt Count 139 MPV 8.2 Sodium 139 Potassium 4.3 Chloride 114 H Carbon Dioxide 16 L Anion Gap 9 BUN 50.2 H Creatinine 5.0 H Est GFR (CKD-EPI)AfAm 12.22 Est GFR (CKD-EPI)NonAf 10.55 Random Glucose 84 Calcium 7.2 L Phosphorus 2.2 L Magnesium 1.8 Total Bilirubin 0.4 AST 16 ALT 33 Alkaline Phosphatase 64 Total Protein 8.2 Albumin 2.7 L Current Medications Generic Name Dose Route Start Last Admin Trade Name Anette PRN Reason Stop Dose Admin Acetaminophen 500 mg 04/20/20 19:19 Tylenol - PO Q6H PRN FEVER Allopurinol 150 mg 04/21/20 10:00 04/21/20 10:22 Zyloprim - PO 150 mg DAILY BRODIE Administration Amlodipine Besylate 10 mg 04/21/20 10:00 04/21/20 10:22 Norvasc - PO 10 mg DAILY BRODIE Administration Atorvastatin Calcium 10 mg 04/20/20 22:00 04/20/20 22:19 Lipitor - PO 10 mg HS BRODIE Administration Heparin Sodium (Porcine) 5,000 unit 04/20/20 22:00 04/21/20 06:32 Heparin - SQ 5,000 unit TID BRODIE Administration Hydralazine HCl 25 mg 04/20/20 22:00 04/21/20 06:32 Apresoline - PO 25 mg TID BRODIE Administration Cefepime HCl 0.5 gm/ Dextrose 100 mls @ 200 mls/hr 04/20/20 22:00 IVPB DAILY BRODIE Protocol Sodium Chloride 1,000 mls @ 50 mls/hr 04/21/20 14:00 1/2 Normal Saline IV 04/22/20 13:53 ASDIR BRODIE Labetalol HCl 300 mg 04/20/20 22:00 04/21/20 10:22 Normodyne - PO 300 mg BID BRODIE Administration Sodium Bicarbonate 650 mg 04/21/20 14:00 Sodium Bicarbonate - PO BID BRODIE Tamsulosin HCl 0.4 mg 04/21/20 08:30 04/21/20 10:22 Flomax - PO 0.4 mg DAILY@0830 BRODIE Administration Home Medications Medication Instructions Recorded Amlodipine Besylate [Norvasc -] 10 mg PO DAILY #30 tablet 09/08/19 Tamsulosin HCl [Flomax -] 0.4 mg PO DAILY@0830 #30 cap.er.24h 09/08/19 Hydralazine HCl 25 mg PO TID 30 Days #90 tablet 11/08/19 Allopurinol [Zyloprim -] 150 mg PO DAILY #30 tablet 04/11/20 Docusate Sodium [Colace -] 100 mg PO BID #30 capsule 04/11/20 Furosemide [Lasix] 40 mg PO DAILY #7 tablet 04/11/20 Labetalol HCl 300 mg PO BID #30 tablet 04/11/20 Polyethylene Glycol 3350 [Miralax 17 gm PO BID #30 bottle 04/11/20 119 gm Btl -] Atorvastatin Calcium [Lipitor] 10 mg PO HS 04/20/20 ASSESSMENT AND PLAN: 74 year old male with history of CKD 3, HTN, HLD, BPH, MM s/p cycle 1 Cybor 04/10/20 now admitted with Pneumonia. 1. HCAP CXR - L sided infiltrate IV Cefepime Respiratory Status stable. Will monitor hemodynamic status. COVID PCR pending 2. JAY on CKD 3/Hypercalcemia/Macrocytic Anemia secondary to Multiple Myeloma s/p BM Bx - MM IgG lambda, (20-100% plasma cells) s/p C1 Cybor 04/10 Continue Allopurinol. Bicarb as per Nephrology Lasix held, gentle hydration. Nephrology, Oncology following. 3. Macrocytic Anemia sec to likely MM, MCV 103.7 4. HTN - Continue home Labetalol, Hydralazine, Amlodipine. 5. BPH - continue Tamsulosin. 6. HLD - On Statin. DVT Px - Heparin SQ BID
[2020-04-21] MEDS: SODIUM BICARBONATE 650 MG TABLET PO SCH ×2 (14:48→21:19)
--- NOTE | 2020-04-21 15:24 | CON.ID ---
Consult - History of Present Illness History of Present Illness: 74 y.o. male with PMH of CKD 3, HLD, HTN, BPH, diagnosed with Multiple Myeloma started on weekly chemotherapy (Cycle 1 of Cytoxan and Velcade on 04/10/20) d ischarged from the hospital on 04/12/20 after management of JAY on CKD was sent from Dr. Chadwick's office yesterday for fever 101.3F when he presented for his chemotherapy. As per daughter at bedside, pt felt warm a few days ago and his temp was 99.6F. He has had some generalized weakness but has not been complaining of anything specific including SOB/cough/chills/CP/Abd pain/n/v/d, dysuria. In the ER, he was noted to have a low grade fever of 100.4F and wbc of 14K. CXR reveals a new infiltrate and pt has been started on IV antibiotics. Currently pt states feels ok, is ambulating to the bathroom, and denies SOB/cough on RA. Temp of 99.4F early this am, currently afebrile. - History Source History Provided By: Patient, Family Member, Medical Record - Past Medical History Cardio/Vascular: Yes: HTN, Hyperlipdemia Renal/: Yes: Renal Inusuff, BPH Heme/Onc: Yes: Other (MM) - Alcohol/Substance Use Hx Alcohol Use: No - Smoking History Smoking history: Never smoked Have you smoked in the past 12 months: No - Social History History of Recent Travel: No Home Medications - Allergies Allergies/Adverse Reactions: Allergies Allergy/AdvReac Type Severity Reaction Status Date / Time No Known Allergies Allergy Verified 03/27/20 12:50 - Home Medications Home Medications: Ambulatory Orders Amlodipine Besylate [Norvasc -] 10 mg PO DAILY #30 tablet 09/08/19 Tamsulosin HCl [Flomax -] 0.4 mg PO DAILY@0830 #30 cap.er.24h 09/08/19 Hydralazine HCl 25 mg PO TID 30 Days #90 tablet 11/08/19 Allopurinol [Zyloprim -] 150 mg PO DAILY #30 tablet 04/11/20 Docusate Sodium [Colace -] 100 mg PO BID #30 capsule 04/11/20 Furosemide [Lasix] 40 mg PO DAILY #7 tablet 04/11/20 Labetalol HCl 300 mg PO BID #30 tablet 04/11/20 Polyethylene Glycol 3350 [Miralax 119 gm Btl -] 17 gm PO BID #30 bottle 04/11/20 Atorvastatin Calcium [Lipitor] 10 mg PO HS 04/20/20 Review of Systems - Review of Systems Constitutional: reports: Weakness. denies: No Symptoms, Chills, Diaphoresis, Fever, Lethargy, Loss of Appetite, Malaise, Night Sweats, Unintentional Wgt. Loss, Other Eyes: reports: No Symptoms. denies: Blind Spots, Blurred Vision, Double Vision, Eye Pain, Floaters, Photophobia, Recent Change in Vision, Other HENT: reports: No Symptoms. denies: Difficult Swallowing, Ear Discharge, Ear Pain, Epistaxis, Gingival Bleeding, Hearing Loss, Mouth Swelling, Nasal Congestion, Ocular Prosthesis, Throat Pain, Toothache, Ringing in Ears, Other Neck: reports: No Symptoms. denies: Decreased ROM, Lumps, Pain on Movement, Stiffness, Swollen Glands, Tenderness, Other Cardiovascular: reports: No Symptoms. denies: Chest Pain, Edema, Palpitations, Shortness of Breath, Other Respiratory: reports: No Symptoms. denies: Cough, Exercise Intolerance, Hemoptysis, Orthopnea, PND, Snoring, SOB, SOB on Exertion, Wheezing, Other Gastrointestinal: reports: No Symptoms. denies: Abdominal Pain, Bloating, Constipation, Diarrhea, Dysphagia, Indigestion, Melena, Nausea, Rectal Bleeding, Vomiting, Vomiting Blood, Other Genitourinary: reports: No Symptoms. denies: Burning, Discharge, Dysuria, Flank Pain, Frequency, Hematuria, Incontinence, Lesions, Menses, Pain, Testicular Mass, Testicular Pain, Testicular Swelling, Urgency, Vaginal Bleeding, Other Musculoskeletal: reports: No Symptoms. denies: Back Pain, Crepitus, Decreased ROM, Extremity Pain, Joint Pain, Joint Swelling, Muscle Pain, Muscle Cramps, Muscle Weakness, Other Integumentary: reports: No Symptoms. denies: Blister, Bruising, Change in Color, Eczema, Erythema, Incision, Lesions, Lump, Pallor, Pruritis, Rash, Wound, Other Neurological: reports: No Symptoms. denies: Change in LOC, Change in Speech, Confusion, Dizziness, Headache, Incoordination, Numbness, Parasthesia, Pre- Existing Deficit, Seizure, Syncope, Tremors, Unsteady Gait, Weakness, Other Endocrine: reports: No Symptoms. denies: Excessive Sweating, Flushing, Increased Hunger, Increased Thirst, Intolerance to Cold, Intolerance to Heat, Unexplained Weight Gain, Unexplained Weight Loss, Other Hematology/Lymphatic: reports: No Symptoms. denies: Easily Bruised, Excessive Bleeding, Swollen Glands, Other Psychiatric: reports: No Symptoms. denies: Altered Sleep Pattern, Anxiety, Depression, Hallucinations, Panic, Paranoia, Suicidal, Other Physical Exam Vital Signs: Vital Signs Temperature 98.3 F 04/21/20 13:58 Pulse Rate 65 04/21/20 13:58 Respiratory Rate 18 04/21/20 13:58 Blood Pressure 108/52 L 04/21/20 13:58 O2 Sat by Pulse Oximetry (%) 96 04/21/20 13:58 Constitutional: Yes: No Distress, Calm Eyes: Yes: Conjunctiva Clear, EOM Intact HENT: Yes: Atraumatic, Normocephalic Neck: Yes: Supple, Trachea Midline Cardiovascular: Yes: Regular Rate and Rhythm Respiratory: Yes: Diminished (Lt base) Gastrointestinal: Yes: Normal Bowel Sounds, Soft Renal/: Yes: WNL Musculoskeletal: Yes: WNL Extremities: Yes: WNL Neurological: Yes: Alert, Oriented Psychiatric: Yes: Alert Labs: CBC, BMP 04/21/20 08:15 04/21/20 08:15 Laboratory Tests 04/20/20 04/20/20 04/20/20 11:19 11:40 11:40 WBC RBC Hgb Hct MCV MCH MCHC RDW Plt Count MPV Absolute Neuts (auto) Neutrophils % Neutrophils % (Manual) Band Neutrophils % Lymphocytes % Lymphocytes % (Manual) Monocytes % Monocytes % (Manual) Eosinophils % Eosinophils % (Manual) Basophils % Basophils % (Manual) Myelocytes % (Man) Promyelocytes % (Man) Blast Cells % (Manual) Nucleated RBC % Metamyelocytes Hypochromia Platelet Estimate Polychromasia Poikilocytosis Anisocytosis Microcytosis Macrocytosis PT with INR 14.80 H INR 1.25 H PTT (Actin FS) 33.1 Sodium Potassium Chloride Carbon Dioxide Anion Gap BUN Creatinine Est GFR (CKD-EPI)AfAm Est GFR (CKD-EPI)NonAf Random Glucose Lactic Acid Calcium Phosphorus Magnesium Total Bilirubin AST ALT Alkaline Phosphatase Troponin I < 0.02 Total Protein Albumin Urine Color Yellow Urine Appearance Clear Urine pH 6.0 Ur Specific [place] 1.014 Urine Protein 3+ H Urine Glucose (UA) Negative Urine Ketones Negative Urine Blood 1+ H Urine Nitrite Negative Urine Bilirubin Negative Urine Urobilinogen 0.2 Ur Leukocyte Esterase Negative Urine WBC (Auto) 8 Urine RBC (Auto) 33 Urine Casts (Auto) 0 U Epithel Cells (Auto) 4 Urine Bacteria (Auto) 2 COVID-19 (KATIE) 04/20/20 04/20/20 04/20/20 11:40 11:40 11:40 WBC 14.0 H RBC 2.52 L Hgb 8.6 L Hct 26.4 L MCV 104.7 H MCH 34.2 H MCHC 32.7 RDW 21.5 H Plt Count 142 D MPV 8.3 Absolute Neuts (auto) 9.3 H Neutrophils % 66.2 Neutrophils % (Manual) 68.0 Band Neutrophils % 0.0 Lymphocytes % 18.2 D Lymphocytes % (Manual) 25.0 D Monocytes % 12.9 H Monocytes % (Manual) 5 Eosinophils % 2.1 D Eosinophils % (Manual) 1.0 D Basophils % 0.6 Basophils % (Manual) 1.0 D Myelocytes % (Man) 0 D Promyelocytes % (Man) 0 Blast Cells % (Manual) 0 Nucleated RBC % 1 H Metamyelocytes 0 D Hypochromia 0 Platelet Estimate Decreased Polychromasia 1+ Poikilocytosis 0 Anisocytosis 2+ Microcytosis 0 Macrocytosis 2+ PT with INR INR PTT (Actin FS) Sodium 135 L Potassium 4.4 Chloride 111 H Carbon Dioxide 17 L Anion Gap 8 BUN 51.4 H Creatinine 5.3 H Est GFR (CKD-EPI)AfAm 11.39 Est GFR (CKD-EPI)NonAf 9.83 Random Glucose 94 Lactic Acid 1.5 Calcium 7.9 L Phosphorus Magnesium Total Bilirubin 0.4 AST 21 ALT 38 Alkaline Phosphatase 67 Troponin I Total Protein 8.3 H Albumin 2.8 L Urine Color Urine Appearance Urine pH Ur Specific [place] Urine Protein Urine Glucose (UA) Urine Ketones Urine Blood Urine Nitrite Urine Bilirubin Urine Urobilinogen Ur Leukocyte Esterase Urine WBC (Auto) Urine RBC (Auto) Urine Casts (Auto) U Epithel Cells (Auto) Urine Bacteria (Auto) COVID-19 (KATIE) 04/20/20 04/21/2004/21/20 14:15 08:15 08:15 WBC 13.3 H RBC 2.49 L Hgb 8.5 L Hct 25.8 L MCV 103.7 H MCH 33.9 H MCHC 32.7 RDW 20.5 H Plt Count 139 MPV 8.2 Absolute Neuts (auto) Neutrophils % Neutrophils % (Manual) Band Neutrophils % Lymphocytes % Lymphocytes % (Manual) Monocytes % Monocytes % (Manual) Eosinophils % Eosinophils % (Manual) Basophils % Basophils % (Manual) Myelocytes % (Man) Promyelocytes % (Man) Blast Cells % (Manual) Nucleated RBC % Metamyelocytes Hypochromia Platelet Estimate Polychromasia Poikilocytosis Anisocytosis Microcytosis Macrocytosis PT with INR INR PTT (Actin FS) Sodium 139 Potassium 4.3 Chloride 114 H Carbon Dioxide 16 L Anion Gap 9 BUN 50.2 H Creatinine 5.0 H Est GFR (CKD-EPI)AfAm 12.22 Est GFR (CKD-EPI)NonAf 10.55 Random Glucose 84 Lactic Acid Calcium 7.2 L Phosphorus 2.2 L Magnesium 1.8 Total Bilirubin 0.4 AST 16 ALT 33 Alkaline Phosphatase 64 Troponin I Total Protein 8.2 Albumin 2.7 L Urine Color Urine Appearance Urine pH Ur Specific [place] Urine Protein Urine Glucose (UA) Urine Ketones Urine Blood Urine Nitrite Urine Bilirubin Urine Urobilinogen Ur Leukocyte Esterase Urine WBC (Auto) Urine RBC (Auto) Urine Casts (Auto) U Epithel Cells (Auto) Urine Bacteria (Auto) COVID-19 (KATIE) Not detected Microbiology 04/20/20 11:19 Blood - Peripheral Venous Blood Culture - Preliminary NO GROWTH OBTAINED AFTER 24 HOURS, INCUBATION TO CONTINUE FOR 4 DAYS. 04/20/20 11:19 Blood - Peripheral Venous Blood Culture - Preliminary NO GROWTH OBTAINED AFTER 24 HOURS, INCUBATION TO CONTINUE FOR 4 DAYS. 04/20/20 11:19 Urine - Urine Clean Catch Urine Culture - Final NO GROWTH OBTAINED Imaging - Results Chest X-ray: Report Reviewed EKG: Report Reviewed Problem List - Problems (1) Fever Code(s): R50.9 - FEVER, UNSPECIFIED (2) Pneumonia Code(s): J18.9 - PNEUMONIA, UNSPECIFIED ORGANISM (3) Leukocytosis Code(s): D72.829 - ELEVATED WHITE BLOOD CELL COUNT, UNSPECIFIED (4) [id number] kidney injury Code(s): N17.9 - ACUTE KIDNEY FAILURE, UNSPECIFIED; N18.9 - CHRONIC KIDNEY D ISEASE, UNSPECIFIED Qualifiers: Chronic kidney disease stage: stage 3 (moderate) Assessment/Plan 74 y.o. male with PMH of CKD 3, HLD, HTN, BPH, diagnosed with Multiple Myeloma started on weekly chemotherapy (Cycle 1 of Cytoxan and Velcade on 04/10/20) discharged from the hospital on 04/12/20 after management of JAY on CKD was sent from Dr. Chadwick's office yesterday for fever 101.3F when he presented for his chemotherapy HCAP Fever Leukocytosis MM on Chemotherapy JAY on CKD HTN HLD BPH -- continue Cefepime, s/p 1 dose of Vancomycin. Vancomycin random level ordered. -- wbc decreasing, monitor temp trend -- collect sputum for c+s -- blood/urine cultures neg so far -- Covid-19 negative -- monitor renal function, improving -- Oncology follow up Will follow Thank you
--- NOTE | 2020-04-21 17:58 | PN ---
Physical Exam: SUBJECTIVE: Patient seen and examined. Pt. endorses a decreased appetite today and does not like the taste of hospital food. Pt. denies any nausea, fevers, chills, cough or any other complaints. OBJECTIVE: Vital Signs Period Temp Pulse Resp BP Sys/Judd Pulse Ox Last 24 Hr 98.1 F-99.4 F 60-65 18-18 108-140/52-80 96-96 GENERAL: Awake, alert, and oriented, in no acute distress. HEAD: Normal with no signs of trauma. EYES: Sclera anicteric, conjunctiva clear. EARS, NOSE, THROAT: Ears normal, nares patent, oropharynx clear without exudates. Moist mucous membranes. LUNGS: Faint crackles at LLL. No accessory muscle use. HEART: Regular rate and rhythm, normal S1 and S2 without murmur ABDOMEN: Soft, nontender, not distended, normoactive bowel sounds, no guarding, no rebound, no masses. MUSCULOSKELETAL: No CVA tenderness. UPPER EXTREMITIES: warm, well-perfused. No cyanosis. No clubbing. No peripheral edema. LOWER EXTREMITIES: 2+ dorsal pedal pulses, warm, well-perfused. No calf tenderness. No peripheral edema. NEUROLOGICAL: Normal speech. Gait not assessed PSYCHIATRIC: Cooperative. Good eye contact. Appropriate mood and affect for suituation SKIN: Warm, dry, normal turgor Laboratory Results - last 24 hr 04/20/20 04/21/20 04/21/20 14:15 08:15 08:15 WBC 13.3 H RBC 2.49 L Hgb 8.5 L Hct 25.8 L MCV 103.7 H MCH 33.9 H MCHC 32.7 RDW 20.5 H Plt Count 139 MPV 8.2 Sodium 139 Potassium 4.3 Chloride 114 H Carbon Dioxide 16 L Anion Gap 9 BUN 50.2 H Creatinine 5.0 H Est GFR (CKD-EPI)AfAm 12.22 Est GFR (CKD-EPI)NonAf 10.55 Random Glucose 84 Calcium 7.2 L Phosphorus 2.2 L Magnesium 1.8 Total Bilirubin 0.4 AST 16 ALT 33 Alkaline Phosphatase 64 Total Protein 8.2 Albumin 2.7 L COVID-19 (KATIE) Not detected Active Medications Generic Name Dose Route Start Last Admin Trade Name Freq PRN Reason Stop Dose Admin Acetaminophen 500 mg 04/20/20 19:19 Tylenol - PO Q6H PRN FEVER Allopurinol 150 mg 04/21/20 10:00 04/21/20 10:22 Zyloprim - PO 150 mg DAILY BRODIE Administration Amlodipine Besylate 10 mg 04/21/20 10:00 04/21/20 10:22 Norvasc - PO 10 mg DAILY BRODIE Administration Atorvastatin Calcium 10 mg 04/20/20 22:00 04/20/20 22:19 Lipitor - PO 10 mg HS BRODIE Administration Heparin Sodium (Porcine) 5,000 unit 04/21/20 22:00 Heparin - SQ BID BRODIE Hydralazine HCl 25 mg 04/20/20 22:00 04/21/20 14:47 Apresoline - PO 25 mg TID BRODIE Administration Cefepime HCl 0.5 gm/ Dextrose 100 mls @ 200 mls/hr 04/21/20 22:00 IVPB Q24H BRODIE Protocol Sodium Chloride 1,000 mls @ 50 mls/hr 04/21/20 14:00 04/21/20 14:48 1/2 Normal Saline IV 04/22/20 13:53 Not Given ASDIR BRODIE Labetalol HCl 300 mg 04/20/20 22:00 04/21/20 10:22 Normodyne - PO 300 mg BID BRODIE Administration Sodium Bicarbonate 650 mg 04/21/20 14:00 04/21/20 14:48 Sodium Bicarbonate - PO 650 mg BID BRODIE Administration Tamsulosin HCl 0.4 mg 04/21/20 08:30 04/21/20 10:22 Flomax - PO 0.4 mg DAILY@0830 BRODIE Administration ASSESSMENT/PLAN: Pt. is a senegalese-speaking 74 y.o. M w/ PMHx. 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 Chadwick's office for fever. #Community Acquired Pneumonia CXR as noted above Leukocytosis with fever f/u BCx UA Negative c/w Abx. trend CBC f/u COVID swab Will hold Cytoxan while being actively treated for pneumonia. Will attempt to give 1 dose of Velcade inpatient. #HTN #HLD #BPH #CKD As per primary team #DVT Ppx. would suggest Lovenox renally dosed Visit type - Emergency Visit Emergency Visit: Yes ED Registration Date: 04/20/20 Care time: The patient presented to the Emergency Department on the above date and was hospitalized for further evaluation of their emergent condition. - New Patient This patient is new to me today: No - Critical Care Critical Care patient: No - Discharge Referral Referred to [facility] Med P.C.: No - Medication Review Med list reviewed for High Risk Meds patients 65 and older: Yes ATTENDING PHYSICIAN STATEMENT I saw and evaluated the patient. I reviewed the resident's note and discussed the case with the resident. I agree with the resident's findings and plan as documented. SUBJECTIVE: OBJECTIVE: ASSESSMENT AND PLAN:
[2020-04-21] MEDS: CEFEPIME 0.5 GM in DEXTROSE 5%-WATER - 100 ML IVPB SCH (21:19)
[2020-04-21] MEDS: ATORVASTATIN CA 10 MG TABLET (FP) PO SCH (21:19)
[2020-04-22] MEDS: hydrALAZINE HCL 25 MG TABLET (FP) PO SCH ×3 (05:45→22:20)
[2020-04-22] MEDS: ALLOPURINOL 100 MG TABLET (FP) PO SCH (09:45)
[2020-04-22] MEDS: SODIUM BICARBONATE 650 MG TABLET PO SCH ×2 (09:46→22:20)
[2020-04-22] MEDS: LABETALOL HCL 100 MG TABLET (FP) PO SCH ×2 (09:46→22:20)
[2020-04-22] MEDS: TAMSULOSIN HCL 0.4 MG CAP PO SCH (09:46)
[2020-04-22] MEDS: amLODIPine BESYLATE 10 MG TABLET (FP) PO SCH (09:46)
[2020-04-22] MEDS: HEPARIN NA (PORCINE) 5,000 UNITS/ML 1ML VIAL SQ SCH ×2 (09:47→22:20)
[2020-04-22 11:31] LABS: BASO % 1.1 % (0-2.0); EOS % 3.9 % (0-4.5); HEMATOCRIT 26.8 % (35.4-49); HEMOGLOBIN 8.9 GM/dL (11.7-16.9); LYMPH % 21.8 % (8-40); MCH 34.4 pg (25.7-33.7); MCHC 33.1 g/dl (32.0-35.9); MEAN CELL VOLUME 103.9 fl (80-96); MEAN PLT VOLUME 8.1 fl (7.5-11.1); MONO % 11.8 % (3.8-10.2); NEUT % 61.4 % (42.8-82.8); PLATELET COUNT 144 K/MM3 (134-434); RBC 2.58 M/mm3 (4.00-5.60); RDW 21.5 % (11.9-15.9); WHITE BLOOD COUNT 10.7 K/mm3 (4.0-10.0)
--- NOTE | 2020-04-22 11:33 | PN ---
Teaching Attending Note Name of Resident: Albaro Carnes ATTENDING PHYSICIAN STATEMENT I saw and evaluated the patient. I reviewed the resident's note and discussed the case with the resident. I agree with the resident's findings and plan as documented. ASSESSMENT AND PLAN: 74 y.o. M w/ PMHx. of HTN, HLD, BPH, CKD, and recently diagnosed with IgG lambda Multiple Myeloma S/p C1 of CyborD 04-10-2020. Comes in with fever to 101.3. Has mild, chronic cough. Mild dysuria. Cxr: LLL infiltrate. Abx started. COVID negative On cefepime Decreasing WBC Continue supportive care
[2020-04-22 11:39] LABS: BLOOD UREA NITROGEN 47.4 mg/dL (7-18); CALCIUM 7.3 mg/dL (8.5-10.1); MAGNESIUM 1.9 mg/dL (1.8-2.4); PHOSPHOROUS 2.3 mg/dL (2.5-4.9); POTASSIUM 3.8 mmol/L (3.5-5.1)
[2020-04-22 12:13] LABS: ANISOCYTOSIS 0; MACROCYTOSIS 0; PLATELET ESTIMATE DECREASED
--- NOTE | 2020-04-22 14:35 | PN ---
Progress Note (short form) - Note Progress Note: 1. CKD 2. HTN 3. JAY 4. HLD 5. protienuria 6. multiple myeloma 7. hypercalcemia 8. PNA Active Medications Acetaminophen (Tylenol -) 500 mg PO Q6H PRN PRN Reason: FEVER Allopurinol (Zyloprim -) 150 mg PO DAILY [facility] Last Admin: 04/22/20 09:45 Dose: 150 mg Documented by: Amlodipine Besylate (Norvasc -) 10 mg PO DAILY [facility] Last Admin: 04/22/20 09:46 Dose: 10 mg Documented by: Atorvastatin Calcium (Lipitor -) 10 mg PO HS [facility] Last Admin: 04/21/20 21:19 Dose: 10 mg Documented by: Heparin Sodium (Porcine) (Heparin -) 5,000 unit SQ BID [facility] Last Admin: 04/22/20 09:47 Dose: 5,000 unit Documented by: Hydralazine HCl (Apresoline -) 25 mg PO TID [facility] Last Admin: 04/22/20 05:45 Dose: 25 mg Documented by: Cefepime HCl 0.5 gm/ Dextrose 100 mls @ 200 mls/hr IVPB Q24H [facility]; Protocol Last Admin: 04/21/20 21:19 Dose: 200 mls/hr Documented by: Labetalol HCl (Normodyne -) 300 mg PO BID [facility] Last Admin: 04/22/20 09:46 Dose: 300 mg Documented by: Sodium Bicarbonate (Sodium Bicarbonate -) 650 mg PO BID [facility] Last Admin: 04/22/20 09:46 Dose: 650 mg Documented by: Tamsulosin HCl (Flomax -) 0.4 mg PO DAILY@0830 [facility] Last Admin: 04/22/20 09:46 Dose: 0.4 mg Documented by: Last Vital Signs Temp Pulse Resp BP Pulse Ox 98.0 F 61 18 104/63 96 04/22/20 14:12 04/22/20 14:12 04/22/20 14:12 04/22/20 14:12 04/22/20 14:12 CBC, BMP 04/22/20 07:38 04/22/20 07:38 IMP- CKD MM Pneumonia Plan- hydration
--- NOTE | 2020-04-22 16:18 | PN.HO ---
Progress Note (short form) - Note Progress Note: S: Doing well. No complaints O: Last Vital Signs Temp Pulse Resp BP Pulse Ox 98.0 F 61 18 104/63 96 04/22/20 14:12 04/22/20 14:12 04/22/20 14:12 04/22/20 14:12 04/22/20 14:12 04/22/20 07:38 04/22/20 07:38 ASSESSMENT AND PLAN: 74 y.o. gentleman w/ PMHx. of HTN, HLD, BPH, CKD, and recently diagnosed with IgG lambda Multiple Myeloma S/p C1 of CyborD 04-10-2020. Came in with fever to 101.3. Now afebrile Has mild, chronic cough. Mild dysuria. Cxr: LLL infiltrate. HCAP. IV Cefepime COVID negative Decreasing WBC Continue supportive care
--- NOTE | 2020-04-22 16:48 | PN ---
Teaching Attending Note Name of Resident: Joe Elias ATTENDING PHYSICIAN STATEMENT I saw and evaluated the patient. I reviewed the resident's note and discussed the case with the resident. I agree with the resident's findings and plan as documented. SUBJECTIVE: Feeling well, no complaints. OBJECTIVE: Fever resolved, Hemodynamically Stable. Last Vital Signs Temp Pulse Resp BP Pulse Ox 98.0 F 61 18 104/63 96 04/22/20 14:12 04/22/20 14:12 04/22/20 14:12 04/22/20 14:12 04/22/20 14:12 Heart - S1, S2, RRR Lungs - L basal crackles. Abdomen - soft, non-tender. Bowel Sounds normal. Extremities - Mild Edema, venous stasis skin changes, no calf tenderness. Neuro - AAO x 3. Tone/Power normal. Laboratory Results - last 24 hr 04/22/20 04/22/20 04/22/20 07:30 07:38 07:38 WBC 10.7 H RBC 2.58 L Hgb 8.9 L Hct 26.8 L MCV 103.9 H MCH 34.4 H MCHC 33.1 RDW 21.5 H Plt Count 144 MPV 8.1 Absolute Neuts (auto) 6.6 Neutrophils % 61.4 Neutrophils % (Manual) 55.7 Band Neutrophils % 6.2 Lymphocytes % 21.8 Lymphocytes % (Manual) 19.6 D Monocytes % 11.8 H Monocytes % (Manual) 12 H D Eosinophils % 3.9 D Eosinophils % (Manual) 4.1 D Basophils % 1.1 Basophils % (Manual) 0.0 Myelocytes % (Man) 1 D Promyelocytes % (Man) 0 Blast Cells % (Manual) 0 Nucleated RBC % 1 H Metamyelocytes 1 D Hypochromia 0 Platelet Estimate Decreased Polychromasia 0 Poikilocytosis 0 Anisocytosis 0 Microcytosis 0 Macrocytosis 0 Sodium 137 Potassium 3.8 Chloride 114 H Carbon Dioxide 18 L Anion Gap 5 L BUN 47.4 H Creatinine 5.0 H Est GFR (CKD-EPI)AfAm 12.22 Est GFR (CKD-EPI)NonAf 10.55 Random Glucose 90 Calcium 7.3 L Phosphorus 2.3 L Magnesium 1.9 Random Vancomycin 9.0 Current Medications Generic Name Dose Route Start Last Admin Trade Name Freq PRN Reason Stop Dose Admin Acetaminophen 500 mg 04/20/20 19:19 Tylenol - PO Q6H PRN FEVER Allopurinol 150 mg 04/21/20 10:00 04/22/20 09:45 Zyloprim - PO 150 mg DAILY [facility] Administration Amlodipine Besylate 10 mg 04/21/20 10:00 04/22/20 09:46 Norvasc - PO 10 mg DAILY [facility] Administration Atorvastatin Calcium 10 mg 04/20/20 22:00 04/21/20 21:19 Lipitor - PO 10 mg HS [facility] Administration Heparin Sodium (Porcine) 5,000 unit 04/21/20 22:00 04/22/20 09:47 Heparin - SQ 5,000 unit BID [facility] Administration Hydralazine HCl 25 mg 04/20/20 22:00 04/22/20 14:51 Apresoline - PO 25 mg TID [facility] Administration Cefepime HCl 0.5 gm/ Dextrose 100 mls @ 200 mls/hr 04/21/20 22:00 04/21/20 21:19 IVPB 200 mls/hr Q24H [facility] Administration Protocol Labetalol HCl 300 mg 04/20/20 22:00 04/22/20 09:46 Normodyne - PO 300 mg BID [facility] Administration Sodium Bicarbonate 650 mg 04/21/20 14:00 04/22/20 09:46 Sodium Bicarbonate - PO 650 mg BID [facility] Administration Tamsulosin HCl 0.4 mg 04/21/20 08:30 04/22/20 09:46 Flomax - PO 0.4 mg DAILY@0830 [facility] Administration Home Medications Medication Instructions Recorded Amlodipine Besylate [Norvasc -] 10 mg PO DAILY #30 tablet 09/08/19 Tamsulosin HCl [Flomax -] 0.4 mg PO DAILY@0830 #30 cap.er.24h 09/08/19 Hydralazine HCl 25 mg PO TID 30 Days #90 tablet 11/08/19 Allopurinol [Zyloprim -] 150 mg PO DAILY #30 tablet 04/11/20 Docusate Sodium [Colace -] 100 mg PO BID #30 capsule 04/11/20 Furosemide [Lasix] 40 mg PO DAILY #7 tablet 04/11/20 Labetalol HCl 300 mg PO BID #30 tablet 04/11/20 Polyethylene Glycol 3350 [Miralax 17 gm PO BID #30 bottle 04/11/20 119 gm Btl -] Atorvastatin Calcium [Lipitor] 10 mg PO HS 04/20/20 ASSESSMENT AND PLAN: 74 year old male with history of CKD 3, HTN, HLD, BPH, MM s/p cycle 1 Cybor 04/10/20 now admitted with Pneumonia. 1. HCAP CXR - L sided infiltrate Fever resolved, leukocytosis resolved. Blood Cx negative x 2. Continue IV Cefepime Hemodynamically stable, Respiratory Status stable. COVID PCR negative. 2. JAY on CKD 3/Hypercalcemia/Macrocytic Anemia secondary to Multiple Myeloma s/p BM Bx - MM IgG lambda, (20-100% plasma cells) s/p C1 Cybor 04/10 Continue Allopurinol. Bicarb as per Nephrology Lasix held Further management as per Nephrology, Oncology. 3. Macrocytic Anemia sec to likely MM, MCV 103.7 4. HTN - Continue home Labetalol, Hydralazine, Amlodipine. 5. BPH - continue Tamsulosin. 6. HLD - On Statin. DVT Px - Heparin SQ BID
--- NOTE | 2020-04-22 18:14 | PN ---
Physical Exam: SUBJECTIVE: Patient seen and examined. Asymptomatic and afebrile. No acute events overnight. OBJECTIVE: Vital Signs Period Temp Pulse Resp BP Sys/Judd Pulse Ox Last 24 Hr 98.0 F-98.7 F 61-68 18-20 104-140/63-80 95-97 GENERAL: The patient is awake, alert, and fully oriented, in no acute distress. Cachetic EYES: PERRL, extraocular movements intact, No ptosis. ENT: moist mucous membranes. LUNGS: Breath sounds equal, no wheezes, L basal crackles. HEART: Regular rate and rhythm, S1, S2 without murmur, rub or gallop. ABDOMEN: Soft, nontender, nondistended, normoactive bowel sounds, no guarding, EXTREMITIES: 2+ pulses, Mild Edema, venous stasis skin changes, no calf tenderness. NEUROLOGICAL: Normal speech, gait not observed. PSYCH: Normal mood, normal affect. Laboratory Results - last 24 hr 04/22/20 04/22/20 04/22/20 07:30 07:38 07:38 WBC 10.7 H RBC 2.58 L Hgb 8.9 L Hct 26.8 L MCV 103.9 H MCH 34.4 H MCHC 33.1 RDW 21.5 H Plt Count 144 MPV 8.1 Absolute Neuts (auto) 6.6 Neutrophils % 61.4 Neutrophils % (Manual) 55.7 Band Neutrophils % 6.2 Lymphocytes % 21.8 Lymphocytes % (Manual) 19.6 D Monocytes % 11.8 H Monocytes % (Manual) 12 H D Eosinophils % 3.9 D Eosinophils % (Manual) 4.1 D Basophils % 1.1 Basophils % (Manual) 0.0 Myelocytes % (Man) 1 D Promyelocytes % (Man) 0 Blast Cells % (Manual) 0 Nucleated RBC % 1 H Metamyelocytes 1 D Hypochromia 0 Platelet Estimate Decreased Polychromasia 0 Poikilocytosis 0 Anisocytosis 0 Microcytosis 0 Macrocytosis 0 Sodium 137 Potassium 3.8 Chloride 114 H Carbon Dioxide 18 L Anion Gap 5 L BUN 47.4 H Creatinine 5.0 H Est GFR (CKD-EPI)AfAm 12.22 Est GFR (CKD-EPI)NonAf 10.55 Random Glucose 90 Calcium 7.3 L Phosphorus 2.3 L Magnesium 1.9 Random Vancomycin 9.0 Active Medications Generic Name Dose Route Start Last Admin Trade Name Freq PRN Reason Stop Dose Admin Acetaminophen 500 mg 04/20/20 19:19 Tylenol - PO Q6H PRN FEVER Allopurinol 150 mg 04/21/20 10:00 04/22/20 09:45 Zyloprim - PO 150 mg DAILY [facility] Administration Amlodipine Besylate 10 mg 04/21/20 10:00 04/22/20 09:46 Norvasc - PO 10 mg DAILY [facility] Administration Atorvastatin Calcium 10 mg 04/20/20 22:00 04/21/20 21:19 Lipitor - PO 10 mg HS [facility] Administration Heparin Sodium (Porcine) 5,000 unit 04/21/20 22:00 04/22/20 09:47 Heparin - SQ 5,000 unit BID [facility] Administration Hydralazine HCl 25 mg 04/20/20 22:00 04/22/20 14:51 Apresoline - PO 25 mg TID [facility] Administration Cefepime HCl 0.5 gm/ Dextrose 100 mls @ 200 mls/hr 04/21/20 22:00 04/21/20 21:19 IVPB 200 mls/hr Q24H [facility] Administration Protocol Labetalol HCl 300 mg 04/20/20 22:00 04/22/20 09:46 Normodyne - PO 300 mg BID [facility] Administration Sodium Bicarbonate 650 mg 04/21/20 14:00 04/22/20 09:46 Sodium Bicarbonate - PO 650 mg BID [facility] Administration Tamsulosin HCl 0.4 mg 04/21/20 08:30 04/22/20 09:46 Flomax - PO 0.4 mg DAILY@0830 [facility] Administration ASSESSMENT/PLAN: 74 y/o M pmh of CKD 3, HTN, HLD, BPH, MM s/p cycle 1 Cybor 04/10/20 now admitted with hospital acquired Pneumonia likely 2/2 to recent admission #HCAP likely 2/2 to recent admission, in setting of multiple myeloma and on chemo, pt is at high risk for hcap in cluding pseudo CXR- L sided infiltrate, on admission febrile now afebrile and no white count Blood Cx negative x 2. Continue IV Cefepime COVID PCR negative. #JAY on CKD 3 Hypercalcemia/Macrocytic Anemia 2/2 to Multiple Myeloma s/p BM Bx-MM IgG lambda, (20-100% plasma cells) s/p C1 Cybor 04/10 Continue Allopurinol. Bicarb recom on d/c as per Nephrology Lasix held, f/u rec as per nephro Further management as per Nephrology, Oncology. #Macrocytic Anemia likely 2/2 MM, MCV 103.7 #HTN Continue home Labetalol, Hydralazine, Amlodipine. #BPH continue Tamsulosin. #HLD On Statin. DVT Px Heparin SQ BID Dispo: f/u nephro recom in am Visit type - Emergency Visit Emergency Visit: Yes ED Registration Date: 04/20/20 Care time: The patient presented to the Emergency Department on the above date and was hospitalized for further evaluation of their emergent condition. - New Patient This patient is new to me today: Yes Date on this admission: 04/22/20 - Critical Care Critical Care patient: No - Discharge Referral Referred to [facility] No ATTENDING PHYSICIAN STATEMENT I saw and evaluated the patient. I reviewed the resident's note and discussed the case with the resident. I agree with the resident's findings and plan as documented. SUBJECTIVE: OBJECTIVE: ASSESSMENT AND PLAN:
--- NOTE | 2020-04-22 21:51 | PN ---
Progress Note, Physician History of Present Illness: Pt comfortable. Afebrile. No respiratory distress/cough noted. Offers no specific complaints. - Current Medication List Current Medications: Active Medications Acetaminophen (Tylenol -) 500 mg PO Q6H PRN PRN Reason: FEVER Allopurinol (Zyloprim -) 150 mg PO DAILY [facility] Last Admin: 04/22/20 09:45 Dose: 150 mg Documented by: Amlodipine Besylate (Norvasc -) 10 mg PO DAILY [facility] Last Admin: 04/22/20 09:46 Dose: 10 mg Documented by: Atorvastatin Calcium (Lipitor -) 10 mg PO HS [facility] Last Admin: 04/21/20 21:19 Dose: 10 mg Documented by: Heparin Sodium (Porcine) (Heparin -) 5,000 unit SQ BID [facility] Last Admin: 04/22/20 09:47 Dose: 5,000 unit Documented by: Hydralazine HCl (Apresoline -) 25 mg PO TID [facility] Last Admin: 04/22/20 14:51 Dose: 25 mg Documented by: Cefepime HCl 0.5 gm/ Dextrose 100 mls @ 200 mls/hr IVPB Q24H [facility]; Protocol Last Admin: 04/21/20 21:19 Dose: 200 mls/hr Documented by: Labetalol HCl (Normodyne -) 300 mg PO BID [facility] Last Admin: 04/22/20 09:46 Dose: 300 mg Documented by: Sodium Bicarbonate (Sodium Bicarbonate -) 650 mg PO BID [facility] Last Admin: 04/22/20 09:46 Dose: 650 mg Documented by: Tamsulosin HCl (Flomax -) 0.4 mg PO DAILY@0830 [facility] Last Admin: 04/22/20 09:46 Dose: 0.4 mg Documented by: - Objective Vital Signs: Vital Signs Temperature 97.3 F L 04/22/20 19:46 Pulse Rate 64 04/22/20 19:46 Respiratory Rate 18 04/22/20 14:12 Blood Pressure 128/63 04/22/20 19:46 O2 Sat by Pulse Oximetry (%) 96 04/22/20 14:12 Constitutional: Yes: No Distress, Calm Cardiovascular: Yes: Regular Rate and Rhythm Respiratory: Yes: Regular Gastrointestinal: Yes: Normal Bowel Sounds, Soft Genitourinary: Yes: WNL Extremities: Yes: WNL Neurological: Yes: Alert Labs: CBC, BMP 04/22/20 07:38 04/22/20 07:38 INR, PTT INR 1.25 (0.83-1.09) H 04/20/20 11:40 Laboratory Last Values WBC 10.7 K/mm3 (4.0-10.0) H 04/22/20 07:38 RBC 2.58 M/mm3 (4.00-5.60) L 04/22/20 07:38 Hgb 8.9 GM/dL (11.7-16.9) L 04/22/20 07:38 Hct 26.8 % (35.4-49) L 04/22/20 07:38 MCV 103.9 fl (80-96) H 04/22/20 07:38 MCH 34.4 pg (25.7-33.7) H 04/22/20 07:38 MCHC 33.1 g/dl (32.0-35.9) 04/22/20 07:38 RDW 21.5 % (11.9-15.9) H 04/22/20 07:38 Plt Count 144 K/MM3 (134-434) 04/22/20 07:38 MPV 8.1 fl (7.5-11.1) 04/22/20 07:38 Absolute Neuts (auto) 6.6 K/mm3 (1.5-8.0) 04/22/20 07:38 Neutrophils % 61.4 % (42.8-82.8) 04/22/20 07:38 Neutrophils % (Manual) 55.7 % (42.8-82.8) 04/22/20 07:38 Band Neutrophils % 6.2 % 04/22/20 07:38 Lymphocytes % 21.8 % (8-40) 04/22/20 07:38 Lymphocytes % (Manual) 19.6 % (8-40) D 04/22/20 07:38 Monocytes % 11.8 % (3.8-10.2) H 04/22/20 07:38 Monocytes % (Manual) 12 % (3.8-10.2) H D 04/22/20 07:38 Eosinophils % 3.9 % (0-4.5) D 04/22/20 07:38 Eosinophils % (Manual) 4.1 % (0-4.5) D 04/22/20 07:38 Basophils % 1.1 % (0-2.0) 04/22/20 07:38 Basophils % (Manual) 0.0 % (0-2.0) 04/22/20 07:38 Myelocytes % (Man) 1 % (0-2) D 04/22/20 07:38 Promyelocytes % (Man) 0 % (0-2) 04/22/20 07:38 Blast Cells % (Manual) 0 % (0-0) 04/22/20 07:38 Nucleated RBC % 1 % (0-0) H 04/22/20 07:38 Metamyelocytes 1 % (0-2) D 04/22/20 07:38 Hypochromia 0 04/22/20 07:38 Platelet Estimate Decreased 04/22/20 07:38 Polychromasia 0 04/22/20 07:38 Poikilocytosis 0 04/22/20 07:38 Anisocytosis 0 04/22/20 07:38 Microcytosis 0 04/22/20 07:38 Macrocytosis 0 04/22/20 07:38 PT with INR 14.80 SEC (9.7-13.0) H 04/20/20 11:40 INR 1.25 (0.83-1.09) H 04/20/20 11:40 PTT (Actin FS) 33.1 SECONDS (25.2-36.5) 04/20/20 11:40 Sodium 137 mmol/L (136-145) 04/22/20 07:38 Potassium 3.8 mmol/L (3.5-5.1) 04/22/20 07:38 Chloride 114 mmol/L (98-107) H 04/22/20 07:38 Carbon Dioxide 18 mmol/L (21-32) L 04/22/20 07:38 Anion Gap 5 MMOL/L (8-16) L 04/22/20 07:38 BUN 47.4 mg/dL (7-18) H 04/22/20 07:38 Creatinine 5.0 mg/dL (0.55-1.3) H 04/22/20 07:38 Est GFR (CKD-EPI)AfAm 12.22 04/22/20 07:38 Est GFR (CKD-EPI)NonAf 10.55 04/22/20 07:38 Random Glucose 90 mg/dL (74-106) 04/22/20 07:38 Lactic Acid 1.5 mmol/L (0.4-2.0) 04/20/20 11:40 Calcium 7.3 mg/dL (8.5-10.1) L 04/22/20 07:38 Phosphorus 2.3 mg/dL (2.5-4.9) L 04/22/20 07:38 Magnesium 1.9 mg/dL (1.8-2.4) 04/22/20 07:38 Total Bilirubin 0.4 mg/dL (0.2-1) 04/21/20 08:15 AST 16 U/L (15-37) 04/21/20 08:15 ALT 33 U/L (13-61) 04/21/20 08:15 Alkaline Phosphatase 64 U/L (45-117) 04/21/20 08:15 Troponin I < 0.02 ng/ml (0.00-0.05) 04/20/20 11:40 Total Protein 8.2 g/dl (6.4-8.2) 04/21/20 08:15 Albumin 2.7 g/dl (3.4-5.0) L 04/21/20 08:15 Urine Color Yellow 04/20/20 11:19 Urine Appearance Clear 04/20/20 11:19 Urine pH 6.0 (5.0-8.0) 04/20/20 11:19 Ur Specific [place] 1.014 (1.010-1.035) 04/20/20 11:19 Urine Protein 3+ (NEGATIVE) H 04/20/20 11:19 Urine Glucose (UA) Negative (NEGATIVE) 04/20/20 11:19 Urine Ketones Negative (NEGATIVE) 04/20/20 11:19 Urine Blood 1+ (NEGATIVE) H 04/20/20 11:19 Urine Nitrite Negative (NEGATIVE) 04/20/20 11:19 Urine Bilirubin Negative (NEGATIVE) 04/20/20 11:19 Urine Urobilinogen 0.2 mg/dL (0.2-1.0) 04/20/20 11:19 Ur Leukocyte Esterase Negative (NEGATIVE) 04/20/20 11:19 Urine WBC (Auto) 8 /uL (0-25.8) 04/20/20 11:19 Urine RBC (Auto) 33 /uL (0-23.9) 04/20/20 11:19 Urine Casts (Auto) 0 /uL (0-3.1) 04/20/20 11:19 U Epithel Cells (Auto) 4 /uL (0-25.1) 04/20/20 11:19 Urine Bacteria (Auto) 2 /uL (0-1359) 04/20/20 11:19 Random Vancomycin 9.0 ug/ml (5-26) 04/22/20 07:30 COVID-19 (KATIE) Not detected (Not Detected) 04/20/20 14:15 Microbiology 04/20/20 11:19 Blood - Peripheral Venous Blood Culture - Preliminary NO GROWTH OBTAINED AFTER 48 HOURS, INCUBATION TO CONTINUE FOR 3 DAYS. 04/20/20 11:19 Blood - Peripheral Venous Blood Culture - Preliminary NO GROWTH OBTAINED AFTER 48 HOURS, INCUBATION TO CONTINUE FOR 3 DAYS. 04/20/20 11:19 Urine - Urine Clean Catch Urine Culture - Final NO GROWTH OBTAINED Problem List - Problems (1) Fever Code(s): R50.9 - FEVER, UNSPECIFIED (2) Pneumonia Code(s): J18.9 - PNEUMONIA, UNSPECIFIED ORGANISM (3) Leukocytosis Code(s): D72.829 - ELEVATED WHITE BLOOD CELL COUNT, UNSPECIFIED (4) [id number] kidney injury Code(s): N17.9 - ACUTE KIDNEY FAILURE, UNSPECIFIED; N18.9 - CHRONIC KIDNEY DISEASE, UNSPECIFIED Qualifiers: Chronic kidney disease stage: stage 3 (moderate) Assessment/Plan 74 y.o. male with PMH of CKD 3, HLD, HTN, BPH, diagnosed with Multiple Myeloma started on weekly chemotherapy (Cycle 1 of Cytoxan and Velcade on 04/10/20) discharged from the hospital on 04/12/20 after management of JAY on CKD was sent from Dr. Chadwick's office yesterday for fever 101.3F when he presented for his chemotherapy HCAP Fever Leukocytosis MM on Chemotherapy JAY on CKD HTN HLD BPH -- continue Cefepime -- Vancomycin trough noted -- wbc decreasing, monitor temp trend- currently afebrile -- collect sputum for c+s -- blood/urine cultures neg -- Covid-19 negative -- monitor renal function, improving -- Oncology follow up
[2020-04-22] MEDS: ATORVASTATIN CA 10 MG TABLET (FP) PO SCH (22:20)
[2020-04-22] MEDS: CEFEPIME 0.5 GM in DEXTROSE 5%-WATER - 100 ML IVPB SCH (22:23)
[2020-04-23] MEDS: hydrALAZINE HCL 25 MG TABLET (FP) PO SCH ×3 (06:41→21:34)
[2020-04-23] MEDS: TAMSULOSIN HCL 0.4 MG CAP PO SCH (08:09)
[2020-04-23 08:55] LABS: HEMATOCRIT 27.1 % (35.4-49); HEMOGLOBIN 8.8 GM/dL (11.7-16.9); MCHC 32.4 g/dl (32.0-35.9); MEAN CELL VOLUME 101.8 fl (80-96); MEAN PLT VOLUME 7.8 fl (7.5-11.1); PLATELET COUNT 157 K/MM3 (134-434); RBC 2.66 M/mm3 (4.00-5.60); RDW 20.8 % (11.9-15.9); WHITE BLOOD COUNT 11.9 K/mm3 (4.0-10.0)
[2020-04-23 10:07] LABS: ALBUMIN 2.9 g/dl (3.4-5.0); BILIRUBIN,TOTAL 0.4 mg/dL (0.2-1); BLOOD UREA NITROGEN 38.9 mg/dL (7-18); CALCIUM 7.4 mg/dL (8.5-10.1); CREATININE 4.8 mg/dL (0.55-1.3); MAGNESIUM 1.9 mg/dL (1.8-2.4); PHOSPHOROUS 2.1 mg/dL (2.5-4.9); POTASSIUM 3.7 mmol/L (3.5-5.1); TOT PROT 8.7 g/dl (6.4-8.2)
[2020-04-23] MEDS: ALLOPURINOL 100 MG TABLET (FP) PO SCH (10:49)
[2020-04-23] MEDS: amLODIPine BESYLATE 10 MG TABLET (FP) PO SCH (10:49)
[2020-04-23] MEDS: SODIUM BICARBONATE 650 MG TABLET PO SCH ×2 (10:50→21:34)
[2020-04-23] MEDS: HEPARIN NA (PORCINE) 5,000 UNITS/ML 1ML VIAL SQ SCH ×2 (10:51→21:34)
[2020-04-23] MEDS: LABETALOL HCL 100 MG TABLET (FP) PO SCH ×2 (10:51→21:34)
--- NOTE | 2020-04-23 13:39 | PN ---
Progress Note (short form) - Note Progress Note: 1. CKD 2. HTN 3. JAY 4. HLD 5. protienuria 6. multiple myeloma 7. hypercalcemia 8. PNA Active Medications Acetaminophen (Tylenol -) 500 mg PO Q6H PRN PRN Reason: FEVER Allopurinol (Zyloprim -) 150 mg PO DAILY [facility] Last Admin: 04/23/20 10:49 Dose: 150 mg Documented by: Amlodipine Besylate (Norvasc -) 10 mg PO DAILY [facility] Last Admin: 04/23/20 10:49 Dose: 10 mg Documented by: Atorvastatin Calcium (Lipitor -) 10 mg PO HS [facility] Last Admin: 04/22/20 22:20 Dose: 10 mg Documented by: Heparin Sodium (Porcine) (Heparin -) 5,000 unit SQ BID [facility] Last Admin: 04/23/20 10:51 Dose: 5,000 unit Documented by: Hydralazine HCl (Apresoline -) 25 mg PO TID [facility] Last Admin: 04/23/20 06:41 Dose: 25 mg Documented by: Cefepime HCl 0.5 gm/ Dextrose 100 mls @ 200 mls/hr IVPB Q24H [facility]; Protocol Last Admin: 04/22/20 22:23 Dose: 200 mls/hr Documented by: Labetalol HCl (Normodyne -) 300 mg PO BID [facility] Last Admin: 04/23/20 10:51 Dose: 300 mg Documented by: Sodium Bicarbonate (Sodium Bicarbonate -) 650 mg PO BID [facility] Last Admin: 04/23/20 10:50 Dose: 650 mg Documented by: Tamsulosin HCl (Flomax -) 0.4 mg PO DAILY@0830 [facility] Last Admin: 04/23/20 08:09 Dose: 0.4 mg Documented by: Last Vital Signs Temp Pulse Resp BP Pulse Ox 98.4 F 68 18 135/68 98 04/23/20 06:00 04/23/20 12:00 04/23/20 12:00 04/23/20 12:00 04/23/20 09:00 lungs clear Heart reg Abd soft CBC, BMP 04/23/20 08:05 04/23/20 08:05 CBC, BMP 04/22/20 07:38 04/22/20 07:38 IMP- CKD stable so far MM Pneumonia Plan- hydration
--- NOTE | 2020-04-23 15:06 | PN ---
Progress Note (short form) - Note Progress Note: SUBJECTIVE: Feeling well, no complaints. Mild SOB on lying in bed. OBJECTIVE: Fever resolved, Hemodynamically Stable. Last Vital Signs Temp Pulse Resp BP Pulse Ox 98.0 F 63 18 109/64 92 L 04/23/20 14:24 04/23/20 14:24 04/23/20 14:24 04/23/20 14:24 04/23/20 14:24 Heart - S1, S2, RRR Lungs - L basal crackles. Abdomen - soft, non-tender. Bowel Sounds normal. Extremities - Mild Edema, venous stasis skin changes, no calf tenderness. Neuro - AAO x 3. Tone/Power normal. Laboratory Results - last 24 hr 04/23/20 04/23/20 08:05 08:05 WBC 11.9 H RBC 2.66 L Hgb 8.8 L Hct 27.1 L MCV 101.8 H MCH 33.0 MCHC 32.4 RDW 20.8 H Plt Count 157 MPV 7.8 Sodium 139 Potassium 3.7 Chloride 114 H Carbon Dioxide 17 L Anion Gap 8 BUN 38.9 H Creatinine 4.8 H Est GFR (CKD-EPI)AfAm 12.84 Est GFR (CKD-EPI)NonAf 11.08 Random Glucose 93 Calcium 7.4 L Phosphorus 2.1 L Magnesium 1.9 Total Bilirubin 0.4 AST 22 ALT 33 Alkaline Phosphatase 64 Total Protein 8.7 H Albumin 2.9 L Current Medications Generic Name Dose Route Start Last Admin Trade Name Freq PRN Reason Stop Dose Admin Acetaminophen 500 mg 04/20/20 19:19 Tylenol - PO Q6H PRN FEVER Allopurinol 150 mg 04/21/20 10:00 04/23/20 10:49 Zyloprim - PO 150 mg DAILY [facility] Administration Amlodipine Besylate 10 mg 04/21/20 10:00 04/23/20 10:49 Norvasc - PO 10 mg DAILY [facility] Administration Atorvastatin Calcium 10 mg 04/20/20 22:00 04/22/20 22:20 Lipitor - PO 10 mg HS [facility] Administration Heparin Sodium (Porcine) 5,000 unit 04/21/20 22:00 04/23/20 10:51 Heparin - SQ 5,000 unit BID [facility] Administration Hydralazine HCl 25 mg 04/20/20 22:00 04/23/20 13:53 Apresoline - PO 25 mg TID [facility] Administration Cefepime HCl 0.5 gm/ Dextrose 100 mls @ 200 mls/hr 04/21/20 22:00 04/22/20 22:23 IVPB 200 mls/hr Q24H [facility] Administration Protocol Labetalol HCl 300 mg 04/20/20 22:00 04/23/20 10:51 Normodyne - PO 300 mg BID BRODIE Administration Sodium Bicarbonate 650 mg 04/21/20 14:00 04/23/20 10:50 Sodium Bicarbonate - PO 650 mg BID BRODIE Administration Tamsulosin HCl 0.4 mg 04/21/20 08:30 04/23/20 08:09 Flomax - PO 0.4 mg DAILY@0830 BRODIE Administration Home Medications Medication Instructions Recorded Amlodipine Besylate [Norvasc -] 10 mg PO DAILY #30 tablet 09/08/19 Tamsulosin HCl [Flomax -] 0.4 mg PO DAILY@0830 #30 cap.er.24h 09/08/19 Hydralazine HCl 25 mg PO TID 30 Days #90 tablet 11/08/19 Allopurinol [Zyloprim -] 150 mg PO DAILY #30 tablet 04/11/20 Docusate Sodium [Colace -] 100 mg PO BID #30 capsule 04/11/20 Furosemide [Lasix] 40 mg PO DAILY #7 tablet 04/11/20 Labetalol HCl 300 mg PO BID #30 tablet 04/11/20 Polyethylene Glycol 3350 [Miralax 17 gm PO BID #30 bottle 04/11/20 119 gm Btl -] Atorvastatin Calcium [Lipitor] 10 mg PO HS 04/20/20 ASSESSMENT AND PLAN: 74 year old male with history of CKD 3, HTN, HLD, BPH, MM s/p cycle 1 Cybor 04/10/20 now admitted with Pneumonia. 1. HCAP CXR - L sided infiltrate Fever resolved, leukocytosis resolved. Blood Cx negative x 2. Continue IV Cefepime Hemodynamically stable, Respiratory Status stable. COVID PCR negative. 2. JAY on CKD 3/Hypercalcemia/Macrocytic Anemia secondary to Multiple Myeloma s/p BM Bx - MM IgG lambda, (20-100% plasma cells) s/p C1 Cybor 04/10 Continue Allopurinol. Bicarb as per Nephrology Lasix held, IV fluids stopped, christiano given reported orthopnea overnight. Repeat CXR pending. Further management as per Nephrology, Oncology. 3. Macrocytic Anemia sec to likely MM, MCV 103.7 4. HTN - Continue home Labetalol, Hydralazine, Amlodipine. 5. BPH - continue Tamsulosin. 6. HLD - On Statin. DVT Px - Heparin SQ BID Visit type - Emergency Visit Emergency Visit: Yes ED Registration Date: 04/20/20 Care time: The patient presented to the Emergency Department on the above date and was hospitalized for further evaluation of their emergent condition. - New Patient This patient is new to me today: No - Critical Care Critical Care patient: No - Discharge Referral Referred to [facility] Med [facility] No
[2020-04-23] MEDS ORDERED: VANCOMYCIN 1 GRAM (PRE-DOCKED) 1,000 MG/250 ML BAG IVPB ONE (16:44)
--- NOTE | 2020-04-23 16:56 | PN.HO ---
Progress Note (short form) - Note Progress Note: S: Doing well. No complaints. Mild pain in his upper back O: Last Vital Signs Temp Pulse Resp BP Pulse Ox 98.0 F 63 18 109/64 92 L 04/23/20 14:24 04/23/20 14:24 04/23/20 14:24 04/23/20 14:24 04/23/20 14:24 04/23/20 08:05 04/23/20 08:05 Current Medications Generic Name Dose Route Start Last Admin Trade Name Freq PRN Reason Stop Dose Admin Acetaminophen 500 mg 04/20/20 19:19 Tylenol - PO Q6H PRN FEVER Allopurinol 150 mg 04/21/20 10:00 04/23/20 10:49 Zyloprim - PO 150 mg DAILY BRODIE Administration Amlodipine Besylate 10 mg 04/21/20 10:00 04/23/20 10:49 Norvasc - PO 10 mg DAILY [facility] Administration Atorvastatin Calcium 10 mg 04/20/20 22:00 04/22/20 22:20 Lipitor - PO 10 mg HS BRODIE Administration Heparin Sodium (Porcine) 5,000 unit 04/21/20 22:00 04/23/20 10:51 Heparin - SQ 5,000 unit BID BR[facility] Administration Hydralazine HCl 25 mg 04/20/20 22:00 04/23/20 13:53 Apresoline - PO 25 mg TID BR[facility] Administration Cefepime HCl 0.5 gm/ Dextrose 100 mls @ 200 mls/hr 04/21/20 22:00 04/22/20 22:23 IVPB 200 mls/hr Q24H [facility] Administration Protocol Vancomycin HCl 1,000 mg in 250 mls @ 166.667 mls/hr 04/23/20 16:44 Vancomycin (Pre-Docked) IVPB 04/23/20 18:13 ONCE ONE Protocol Labetalol HCl 300 mg 04/20/20 22:00 04/23/20 10:51 Normodyne - PO 300 mg BID BRODIE Administration Sodium Bicarbonate 650 mg 04/21/20 14:00 04/23/20 10:50 Sodium Bicarbonate - PO 650 mg BID BRODIE Administration Tamsulosin HCl 0.4 mg 04/21/20 08:30 04/23/20 08:09 Flomax - PO 0.4 mg DAILY@0830 BRODIE Administration ASSESSMENT AND PLAN: 74 y.o. gentleman w/ PMHx. of HTN, HLD, BPH, CKD, and recently diagnosed with IgG lambda Multiple Myeloma S/p C1 of CyborD 04-10-2020. Came in with fever to 101.3. Now afebrile Has mild, chronic cough. Mild dysuria. Cxr: LLL infiltrate. HCAP. IV Cefepime COVID negative Initially decreasing WBC now starting to increase again to 11.9 Continue supportive care
--- NOTE | 2020-04-23 20:53 | PN ---
Progress Note, Physician History of Present Illness: Pt remains without distress. Weak overall but stating he's ok. Afebrile, wbc slightly higher today. - Current Medication List Current Medications: Active Medications Acetaminophen (Tylenol -) 500 mg PO Q6H PRN PRN Reason: FEVER Allopurinol (Zyloprim -) 150 mg PO DAILY [facility] Last Admin: 04/23/20 10:49 Dose: 150 mg Documented by: Amlodipine Besylate (Norvasc -) 10 mg PO DAILY [facility] Last Admin: 04/23/20 10:49 Dose: 10 mg Documented by: Atorvastatin Calcium (Lipitor -) 10 mg PO HS [facility] Last Admin: 04/22/20 22:20 Dose: 10 mg Documented by: Heparin Sodium (Porcine) (Heparin -) 5,000 unit SQ BID [facility] Last Admin: 04/23/20 10:51 Dose: 5,000 unit Documented by: Hydralazine HCl (Apresoline -) 25 mg PO TID [facility] Last Admin: 04/23/20 13:53 Dose: 25 mg Documented by: Cefepime HCl 0.5 gm/ Dextrose 100 mls @ 200 mls/hr IVPB Q24H [facility]; Protocol Last Admin: 04/22/20 22:23 Dose: 200 mls/hr Documented by: Labetalol HCl (Normodyne -) 300 mg PO BID [facility] Last Admin: 04/23/20 10:51 Dose: 300 mg Documented by: Sodium Bicarbonate (Sodium Bicarbonate -) 650 mg PO BID [facility] Last Admin: 04/23/20 10:50 Dose: 650 mg Documented by: Tamsulosin HCl (Flomax -) 0.4 mg PO DAILY@0830 [facility] Last Admin: 04/23/20 08:09 Dose: 0.4 mg Documented by: - Objective Vital Signs: Vital Signs Temperature 97.6 F 04/23/20 19:32 Pulse Rate 67 04/23/20 19:32 Respiratory Rate 18 04/23/20 14:24 Blood Pressure 142/74 04/23/20 19:32 O2 Sat by Pulse Oximetry (%) 95 04/23/20 19:32 Constitutional: Yes: No Distress, Calm Cardiovascular: Yes: Regular Rate and Rhythm Respiratory: Yes: Other (mild Lt base crackles) Gastrointestinal: Yes: Normal Bowel Sounds, Soft Genitourinary: Yes: WNL Integumentary: Yes: WNL Neurological: Yes: Alert Labs: CBC, BMP 04/23/20 08:05 04/23/20 08:05 INR, PTT INR 1.25 (0.83-1.09) H 04/20/20 11:40 Laboratory Last Values WBC 11.9 K/mm3 (4.0-10.0) H 04/23/20 08:05 RBC 2.66 M/mm3 (4.00-5.60) L 04/23/20 08:05 Hgb 8.8 GM/dL (11.7-16.9) L 04/23/20 08:05 Hct 27.1 % (35.4-49) L 04/23/20 08:05 MCV 101.8 fl (80-96) H 04/23/20 08:05 MCH 33.0 pg (25.7-33.7) 04/23/20 08:05 MCHC 32.4 g/dl (32.0-35.9) 04/23/20 08:05 RDW 20.8 % (11.9-15.9) H 04/23/20 08:05 Plt Count 157 K/MM3 (134-434) 04/23/20 08:05 MPV 7.8 fl (7.5-11.1) 04/23/20 08:05 Absolute Neuts (auto) 6.6 K/mm3 (1.5-8.0) 04/22/20 07:38 Neutrophils % 61.4 % (42.8-82.8) 04/22/20 07:38 Neutrophils % (Manual) 55.7 % (42.8-82.8) 04/22/20 07:38 Band Neutrophils % 6.2 % 04/22/20 07:38 Lymphocytes % 21.8 % (8-40) 04/22/20 07:38 Lymphocytes % (Manual) 19.6 % (8-40) D 04/22/20 07:38 Monocytes % 11.8 % (3.8-10.2) H 04/22/20 07:38 Monocytes % (Manual) 12 % (3.8-10.2) H D 04/22/20 07:38 Eosinophils % 3.9 % (0-4.5) D 04/22/20 07:38 Eosinophils % (Manual) 4.1 % (0-4.5) D 04/22/20 07:38 Basophils % 1.1 % (0-2.0) 04/22/20 07:38 Basophils % (Manual) 0.0 % (0-2.0) 04/22/20 07:38 Myelocytes % (Man) 1 % (0-2) D 04/22/20 07:38 Promyelocytes % (Man) 0 % (0-2) 04/22/20 07:38 Blast Cells % (Manual) 0 % (0-0) 04/22/20 07:38 Nucleated RBC % 1 % (0-0) H 04/22/20 07:38 Metamyelocytes 1 % (0-2) D 04/22/20 07:38 Hypochromia 0 04/22/20 07:38 Platelet Estimate Decreased 04/22/20 07:38 Polychromasia 0 04/22/20 07:38 Poikilocytosis 0 04/22/20 07:38 Anisocytosis 0 04/22/20 07:38 Microcytosis 0 04/22/20 07:38 Macrocytosis 0 04/22/20 07:38 PT with INR 14.80 SEC (9.7-13.0) H 04/20/20 11:40 INR 1.25 (0.83-1.09) H 04/20/20 11:40 PTT (Actin FS) 33.1 SECONDS (25.2-36.5) 04/20/20 11:40 Sodium 139 mmol/L (136-145) 04/23/20 08:05 Potassium 3.7 mmol/L (3.5-5.1) 04/23/20 08:05 Chloride 114 mmol/L (98-107) H 04/23/20 08:05 Carbon Dioxide 17 mmol/L (21-32) L 04/23/20 08:05 Anion Gap 8 MMOL/L (8-16) 04/23/20 08:05 BUN 38.9 mg/dL (7-18) H 04/23/20 08:05 Creatinine 4.8 mg/dL (0.55-1.3) H 04/23/20 08:05 Est GFR (CKD-EPI)AfAm 12.84 04/23/20 08:05 Est GFR (CKD-EPI)NonAf 11.08 04/23/20 08:05 Random Glucose 93 mg/dL (74-106) 04/23/20 08:05 Lactic Acid 1.5 mmol/L (0.4-2.0) 04/20/20 11:40 Calcium 7.4 mg/dL (8.5-10.1) L 04/23/20 08:05 Phosphorus 2.1 mg/dL (2.5-4.9) L 04/23/20 08:05 Magnesium 1.9 mg/dL (1.8-2.4) 04/23/20 08:05 Total Bilirubin 0.4 mg/dL (0.2-1) 04/23/20 08:05 AST 22 U/L (15-37) 04/23/20 08:05 ALT 33 U/L (13-61) 04/23/20 08:05 Alkaline Phosphatase 64 U/L (45-117) 04/23/20 08:05 Troponin I < 0.02 ng/ml (0.00-0.05) 04/20/20 11:40 Total Protein 8.7 g/dl (6.4-8.2) H 04/23/20 08:05 Albumin 2.9 g/dl (3.4-5.0) L 04/23/20 08:05 Urine Color Yellow 04/20/20 11:19 Urine Appearance Clear 04/20/20 11:19 Urine pH 6.0 (5.0-8.0) 04/20/20 11:19 Ur Specific [place] 1.014 (1.010-1.035) 04/20/20 11:19 Urine Protein 3+ (NEGATIVE) H 04/20/20 11:19 Urine Glucose (UA) Negative (NEGATIVE) 04/20/20 11:19 Urine Ketones Negative (NEGATIVE) 04/20/20 11:19 Urine Blood 1+ (NEGATIVE) H 04/20/20 11:19 Urine Nitrite Negative (NEGATIVE) 04/20/20 11:19 Urine Bilirubin Negative (NEGATIVE) 04/20/20 11:19 Urine Urobilinogen 0.2 mg/dL (0.2-1.0) 04/20/20 11:19 Ur Leukocyte Esterase Negative (NEGATIVE) 04/20/20 11:19 Urine WBC (Auto) 8 /uL (0-25.8) 04/20/20 11:19 Urine RBC (Auto) 33 /uL (0-23.9) 04/20/20 11:19 Urine Casts (Auto) 0 /uL (0-3.1) 04/20/20 11:19 U Epithel Cells (Auto) 4 /uL (0-25.1) 04/20/20 11:19 Urine Bacteria (Auto) 2 /uL (0-1359) 04/20/20 11:19 Random Vancomycin 9.0 ug/ml (5-26) 04/22/20 07:30 COVID-19 (KATIE) Not detected (Not Detected) 04/20/20 14:15 Microbiology 04/20/20 11:19 Blood - Peripheral Venous Blood Culture - Preliminary NO GROWTH OBTAINED AFTER 72 HOURS, INCUBATION TO CONTINUE FOR 2 DAYS. 04/20/20 11:19 Blood - Peripheral Venous Blood Culture - Preliminary NO GROWTH OBTAINED AFTER 72 HOURS, INCUBATION TO CONTINUE FOR 2 DAYS. 04/20/20 11:19 Urine - Urine Clean Catch Urine Culture - Final NO GROWTH OBTAINED - ....Imaging Chest X-ray: Pending Problem List - Problems (1) Fever Code(s): R50.9 - FEVER, UNSPECIFIED (2) Pneumonia Code(s): J18.9 - PNEUMONIA, UNSPECIFIED ORGANISM (3) Leukocytosis Code(s): D72.829 - ELEVATED WHITE BLOOD CELL COUNT, UNSPECIFIED (4) Rreha-gs-[id number] kidney injury Code(s): N17.9 - ACUTE KIDNEY FAILURE, UNSPECIFIED; N18.9 - CHRONIC KIDNEY DISEASE, UNSPECIFIED Qualifiers: Chronic kidney disease stage: stage 3 (moderate) Assessment/Plan 74 y.o. male with PMH of CKD 3, HLD, HTN, BPH, diagnosed with Multiple Myeloma started on weekly chemotherapy (Cycle 1 of Cytoxan and Velcade on 04/10/20) discharged from the hospital on 04/12/20 after management of JAY on CKD was sent from Dr. Chadwick's office yesterday for fever 101.3F when he presented for his chemotherapy HCAP Fever Leukocytosis MM on Chemotherapy JAY on CKD HTN HLD BPH -- continue Cefepime, Vancomycin x 1 dose today -- renal function improving, afebrile -- wbc slightly higher , repeat cbc -- collect sputum for c+s -- blood/urine cultures neg -- Covid-19 negative -- Oncology follow up
[2020-04-23] MEDS: ATORVASTATIN CA 10 MG TABLET (FP) PO SCH (21:34)
[2020-04-23] MEDS: CEFEPIME 0.5 GM in DEXTROSE 5%-WATER - 100 ML IVPB SCH (21:36)
[2020-04-24] MEDS ORDERED: MELATONIN 5 MG TABLETS PO ONE (01:13)
[2020-04-24] MEDS: hydrALAZINE HCL 25 MG TABLET (FP) PO SCH ×2 (06:02→13:59)
[2020-04-24] MEDS: TAMSULOSIN HCL 0.4 MG CAP PO SCH (08:06)
[2020-04-24 08:44] VITALS: BP 141/75; PULSE 79; TEMP 97.4
[2020-04-24] MEDS: amLODIPine BESYLATE 10 MG TABLET (FP) PO SCH (10:06)
[2020-04-24] MEDS: HEPARIN NA (PORCINE) 5,000 UNITS/ML 1ML VIAL SQ SCH (10:06)
[2020-04-24] MEDS: LABETALOL HCL 100 MG TABLET (FP) PO SCH (10:06)
[2020-04-24] MEDS: SODIUM BICARBONATE 650 MG TABLET PO SCH (10:07)
[2020-04-24] MEDS: ALLOPURINOL 100 MG TABLET (FP) PO SCH (10:07)
[2020-04-24 11:49] LABS: BASO % 1.4 % (0-2.0); EOS % 5.1 % (0-4.5); HEMOGLOBIN 9.2 GM/dL (11.7-16.9); MCHC 32.9 g/dl (32.0-35.9); MEAN CELL VOLUME 103.3 fl (80-96); MEAN PLT VOLUME 7.9 fl (7.5-11.1); MONO % 9.5 % (3.8-10.2); PLATELET COUNT 166 K/MM3 (134-434); RBC 2.71 M/mm3 (4.00-5.60); RDW 20.7 % (11.9-15.9); WHITE BLOOD COUNT 10.8 K/mm3 (4.0-10.0)
[2020-04-24 12:15] LABS: ALBUMIN 2.9 g/dl (3.4-5.0); BILIRUBIN,TOTAL 0.4 mg/dL (0.2-1); BLOOD UREA NITROGEN 34.1 mg/dL (7-18); CALCIUM 7.2 mg/dL (8.5-10.1); CREATININE 4.5 mg/dL (0.55-1.3); PHOSPHOROUS 2.2 mg/dL (2.5-4.9); TOT PROT 8.8 g/dl (6.4-8.2)
--- NOTE | 2020-04-24 12:26 | PN ---
Progress Note, Physician History of Present Illness: stable no complaints wbc trending down - Current Medication List Current Medications: Active Medications Acetaminophen (Tylenol -) 500 mg PO Q6H PRN PRN Reason: FEVER Allopurinol (Zyloprim -) 150 mg PO DAILY [facility] Last Admin: 04/24/20 10:07 Dose: 150 mg Documented by: Amlodipine Besylate (Norvasc -) 10 mg PO DAILY [facility] Last Admin: 04/24/20 10:06 Dose: 10 mg Documented by: Atorvastatin Calcium (Lipitor -) 10 mg PO HS [facility] Last Admin: 04/23/20 21:34 Dose: 10 mg Documented by: Heparin Sodium (Porcine) (Heparin -) 5,000 unit SQ BID [facility] Last Admin: 04/24/20 10:06 Dose: 5,000 unit Documented by: Hydralazine HCl (Apresoline -) 25 mg PO TID [facility] Last Admin: 04/24/20 06:02 Dose: 25 mg Documented by: Cefepime HCl 0.5 gm/ Dextrose 100 mls @ 200 mls/hr IVPB Q24H [facility]; Protocol Last Admin: 04/23/20 21:36 Dose: 200 mls/hr Documented by: Labetalol HCl (Normodyne -) 300 mg PO BID [facility] Last Admin: 04/24/20 10:06 Dose: 300 mg Documented by: Sodium Bicarbonate (Sodium Bicarbonate -) 650 mg PO BID [facility] Last Admin: 04/24/20 10:07 Dose: 650 mg Documented by: Tamsulosin HCl (Flomax -) 0.4 mg PO DAILY@0830 [facility] Last Admin: 04/24/20 08:06 Dose: 0.4 mg Documented by: - Objective Vital Signs: Vital Signs Temperature 97.4 F L 04/24/20 08:44 Pulse Rate 79 04/24/20 08:44 Respiratory Rate 18 04/24/20 08:44 Blood Pressure 141/75 04/24/20 08:44 O2 Sat by Pulse Oximetry (%) 95 04/24/20 09:00 Constitutional: Yes: No Distress, Calm Cardiovascular: Yes: S1, S2 Respiratory: Yes: Regular, CTA Bilaterally Gastrointestinal: Yes: Normal Bowel Sounds, Soft Musculoskeletal: Yes: WNL Extremities: Yes: Other Neurological: Yes: Alert, Oriented Psychiatric: Yes: Alert, Oriented Labs: CBC, BMP 04/24/20 11:22 04/24/20 11:22 INR, PTT INR 1.25 (0.83-1.09) H 04/20/20 11:40 Assessment/Plan Problem List - Problems (1) Fever Code(s): R50.9 - FEVER, UNSPECIFIED (2) Pneumonia Code(s): J18.9 - PNEUMONIA, UNSPECIFIED ORGANISM (3) Leukocytosis Code(s): D72.829 - ELEVATED WHITE BLOOD CELL COUNT, UNSPECIFIED (4) Badtw-be-qfmfoxh kidney injury Code(s): N17.9 - ACUTE KIDNEY FAILURE, UNSPECIFIED; N18.9 - CHRONIC KIDNEY DISEASE, UNSPECIFIED Qualifiers: Chronic kidney disease stage: stage 3 (moderate) Assessment/Plan 74 y.o. male with PMH of CKD 3, HLD, HTN, BPH, diagnosed with Multiple Myeloma started on weekly chemotherapy (Cycle 1 of Cytoxan and Velcade on 04/10/20) discharged from the hospital on 04/12/20 after management of JAY on CKD was sent from Dr. Chadwick's office yesterday for fever 101.3F when he presented for his chemotherapy HCAP Fever Leukocytosis MM on Chemotherapy JAY on CKD HTN HLD BPH -- continue Cefepime, if patient is coughing get a sputum cx continue rest of the mgmt
[2020-04-24 12:45] LABS: ANISOCYTOSIS 2+; MACROCYTOSIS 2+; PLATELET ESTIMATE DECREASED
--- NOTE | 2020-04-24 13:47 | PN ---
Progress Note, Physician History of Present Illness: Pt seen and examined at bedside. He denies shortness of breath or cough. - Current Medication List Current Medications: Active Medications Acetaminophen (Tylenol -) 500 mg PO Q6H PRN PRN Reason: FEVER Allopurinol (Zyloprim -) 150 mg PO DAILY [facility] Last Admin: 04/24/20 10:07 Dose: 150 mg Documented by: Amlodipine Besylate (Norvasc -) 10 mg PO DAILY [facility] Last Admin: 04/24/20 10:06 Dose: 10 mg Documented by: Atorvastatin Calcium (Lipitor -) 10 mg PO HS [facility] Last Admin: 04/23/20 21:34 Dose: 10 mg Documented by: Heparin Sodium (Porcine) (Heparin -) 5,000 unit SQ BID [facility] Last Admin: 04/24/20 10:06 Dose: 5,000 unit Documented by: Hydralazine HCl (Apresoline -) 25 mg PO TID [facility] Last Admin: 04/24/20 06:02 Dose: 25 mg Documented by: Cefepime HCl 0.5 gm/ Dextrose 100 mls @ 200 mls/hr IVPB Q24H [facility]; Protocol Last Admin: 04/23/20 21:36 Dose: 200 mls/hr Documented by: Labetalol HCl (Normodyne -) 300 mg PO BID [facility] Last Admin: 04/24/20 10:06 Dose: 300 mg Documented by: Sodium Bicarbonate (Sodium Bicarbonate -) 650 mg PO BID [facility] Last Admin: 04/24/20 10:07 Dose: 650 mg Documented by: Tamsulosin HCl (Flomax -) 0.4 mg PO DAILY@0830 [facility] Last Admin: 04/24/20 08:06 Dose: 0.4 mg Documented by: - Objective Vital Signs: Vital Signs Temperature 97.4 F L 04/24/20 08:44 Pulse Rate 79 04/24/20 08:44 Respiratory Rate 18 04/24/20 08:44 Blood Pressure 141/75 04/24/20 08:44 O2 Sat by Pulse Oximetry (%) 95 04/24/20 09:00 Constitutional: Yes: Calm Eyes: Yes: Conjunctiva Clear HENT: Yes: Atraumatic Neck: Yes: Supple Cardiovascular: Yes: S1, S2 Respiratory: Yes: CTA Bilaterally Gastrointestinal: Yes: Soft Genitourinary: Yes: WNL Musculoskeletal: Yes: WNL Edema: No Neurological: Yes: Oriented Psychiatric: Yes: Oriented Labs: CBC, BMP 04/24/20 11:22 04/24/20 11:22 INR, PTT INR 1.25 (0.83-1.09) H 04/20/20 11:40 Assessment/Plan Current Medications Generic Name Dose Route Start Last Admin Trade Name Anette PRN Reason Stop Dose Admin Acetaminophen 500 mg 04/20/20 19:19 Tylenol - PO Q6H PRN FEVER Allopurinol 150 mg 04/21/20 10:00 04/24/20 10:07 Zyloprim - PO 150 mg DAILY [facility] Administration Amlodipine Besylate 10 mg 04/21/20 10:00 04/24/20 10:06 Norvasc - PO 10 mg DAILY [facility] Administration Atorvastatin Calcium 10 mg 04/20/20 22:00 04/23/20 21:34 Lipitor - PO 10 mg HS [facility] Administration Heparin Sodium (Porcine) 5,000 unit 04/21/20 22:00 04/24/20 10:06 Heparin - SQ 5,000 unit BID [facility] Administration Hydralazine HCl 25 mg 04/20/20 22:00 04/24/20 06:02 Apresoline - PO 25 mg TID [facility] Administration Cefepime HCl 0.5 gm/ Dextrose 100 mls @ 200 mls/hr 04/21/20 22:00 04/23/20 21:36 IVPB 200 mls/hr Q24H [facility] Administration Protocol Labetalol HCl 300 mg 04/20/20 22:00 04/24/20 10:06 Normodyne - PO 300 mg BID [facility] Administration Sodium Bicarbonate 650 mg 04/21/20 14:00 04/24/20 10:07 Sodium Bicarbonate - PO 650 mg BID [facility] Administration Tamsulosin HCl 0.4 mg 04/21/20 08:30 04/24/20 08:06 Flomax - PO 0.4 mg DAILY@0830 [facility] Administration Impression 1. CKD 2. HTN 3. JAY 4. HLD 5. protienuria 6. multiple myeloma 7. hypercalcemia 8. PNA Plan - renal function improved - resume lasix - cont PO bicarb - outpt follow up - discussed with medical team
--- NOTE | 2020-04-24 15:11 | PN ---
Teaching Attending Note Name of Resident: Nicanor Bui ATTENDING PHYSICIAN STATEMENT I saw and evaluated the patient. I reviewed the resident's note and discussed the case with the resident. I agree with the resident's findings and plan as documented. SUBJECTIVE: Feeling well, no complaints. OBJECTIVE: Fever resolved, Hemodynamically Stable. Last Vital Signs Temp Pulse Resp BP Pulse Ox 97.4 F L 79 18 141/75 95 04/24/20 08:44 04/24/20 08:44 04/24/20 08:44 04/24/20 08:44 04/24/20 09:00 Heart - S1, S2, RRR Lungs - L basal crackles. Abdomen - soft, non-tender. Bowel Sounds normal. Extremities - Mild Edema, venous stasis skin changes, no calf tenderness. Neuro - AAO x 3. Tone/Power normal. Laboratory Results - last 24 hr 04/23/20 04/24/20 04/24/20 21:33 11:22 11:22 WBC 10.8 H RBC 2.71 L Hgb 9.2 L Hct 28.0 L MCV 103.3 H MCH 34.0 H MCHC 32.9 RDW 20.7 H Plt Count 166 MPV 7.9 Absolute Neuts (auto) 6.9 Neutrophils % 64.0 Neutrophils % (Manual) 41.4 L D Band Neutrophils % 15.2 Lymphocytes % 20.0 Lymphocytes % (Manual) 16.2 Monocytes % 9.5 Monocytes % (Manual) 9 Eosinophils % 5.1 H Eosinophils % (Manual) 5.0 H Basophils % 1.4 Basophils % (Manual) 1.0 D Myelocytes % (Man) 6 H D Promyelocytes % (Man) 0 Blast Cells % (Manual) 0 Nucleated RBC % 3 H Metamyelocytes 4 H D Hypochromia 0 Platelet Estimate Decreased Polychromasia 1+ Poikilocytosis 0 Anisocytosis 2+ Microcytosis 0 Macrocytosis 2+ Sodium 138 Potassium 4.0 Chloride 113 H Carbon Dioxide 16 L Anion Gap 9 BUN 34.1 H Creatinine 4.5 H Est GFR (CKD-EPI)AfAm 13.88 Est GFR (CKD-EPI)NonAf 11.98 POC Glucometer 200 Random Glucose 103 Calcium 7.2 L Phosphorus 2.2 L Total Bilirubin 0.4 AST 33 ALT 36 Alkaline Phosphatase 72 Total Protein 8.8 H Albumin 2.9 L Current Medications Generic Name Dose Route Start Last Admin Trade Name Anette PRN Reason Stop Dose Admin Acetaminophen 500 mg 04/20/20 19:19 Tylenol - PO Q6H PRN FEVER Allopurinol 150 mg 04/21/20 10:00 04/24/20 10:07 Zyloprim - PO 150 mg DAILY [facility] Administration Amlodipine Besylate 10 mg 04/21/20 10:00 04/24/20 10:06 Norvasc - PO 10 mg DAILY [facility] Administration Atorvastatin Calcium 10 mg 04/20/20 22:00 04/23/20 21:34 Lipitor - PO 10 mg HS [facility] Administration Heparin Sodium (Porcine) 5,000 unit 04/21/20 22:00 04/24/20 10:06 Heparin - SQ 5,000 unit BID [facility] Administration Hydralazine HCl 25 mg 04/20/20 22:00 04/24/20 13:59 Apresoline - PO 25 mg TID [facility] Administration Cefepime HCl 0.5 gm/ Dextrose 100 mls @ 200 mls/hr 04/21/20 22:00 04/23/20 21:36 IVPB 200 mls/hr Q24H [facility] Administration Protocol Labetalol HCl 300 mg 04/20/20 22:00 04/24/20 10:06 Normodyne - PO 300 mg BID [facility] Administration Sodium Bicarbonate 650 mg 04/21/20 14:00 04/24/20 10:07 Sodium Bicarbonate - PO 650 mg BID [facility] Administration Tamsulosin HCl 0.4 mg 04/21/20 08:30 04/24/20 08:06 Flomax - PO 0.4 mg DAILY@0830 [facility] Administration Home Medications Medication Instructions Recorded Amlodipine Besylate [Norvasc -] 10 mg PO DAILY #30 tablet 09/08/19 Tamsulosin HCl [Flomax -] 0.4 mg PO DAILY@0830 #30 cap.er.24h 09/08/19 Hydralazine HCl 25 mg PO TID 30 Days #90 tablet 11/08/19 Allopurinol [Zyloprim -] 150 mg PO DAILY #30 tablet 04/11/20 Docusate Sodium [Colace -] 100 mg PO BID #30 capsule 04/11/20 Furosemide [Lasix] 40 mg PO DAILY #7 tablet 04/11/20 Labetalol HCl 300 mg PO BID #30 tablet 04/11/20 Polyethylene Glycol 3350 [Miralax 17 gm PO BID #30 bottle 04/11/20 119 gm Btl -] Atorvastatin Calcium [Lipitor] 10 mg PO HS 04/20/20 ASSESSMENT AND PLAN: 74 year old male with history of CKD 3, HTN, HLD, BPH, MM s/p cycle 1 Cybor 04/10/20 now admitted with Pneumonia. 1. HCAP CXR - L sided infiltrate Fever resolved, leukocytosis resolved. Blood Cx negative x 2. Received 4 days IV Cefepime - will transition to Levofloxacin 750 mg to be taken tomorrow for one dose. Hemodynamically stable, Respiratory Status stable. COVID PCR negative. 2. JAY on CKD 3/Hypercalcemia/Macrocytic Anemia secondary to Multiple Myeloma s/p BM Bx - MM IgG lambda, (20-100% plasma cells) s/p C1 Cybor 04/10 Continue Allopurinol. Oral Bicarb as per Nephrology Lasix to be resumed as per Nephrology. Further management as per Nephrology, Oncology. 3. Macrocytic Anemia sec to likely MM, MCV 103.7 4. HTN - Continue home Labetalol, Hydralazine, Amlodipine. 5. BPH - continue Tamsulosin. 6. HLD - On Statin. Medically stable and optimized for discharge. Needs Oncology and Nephrology follow up with repeat labs next Friday.
[2020-04-24 18:08] LABS: IGA IMMUNOGLOBULIN 11 mg/dL (61-437); IGG QN IMMUNOGLOBULIN 3597 mg/dL (603-1613); IGM QN SERUM 8 mg/dL (15-143)
--- NOTE | 2020-04-26 07:05 | DS ---
Physical Exam: SUBJECTIVE: Patient seen and examined at bedside. Patient denies any acute overnight events or current complaints. OBJECTIVE: PHYSICAL EXAM GENERAL: The patient is awake, alert, and fully oriented, in no acute distress. HEAD: Normal with no signs of trauma. LUNGS: Breath sounds equal, clear to auscultation bilaterally, no wheezes, no crackles, no accessory muscle use. HEART: Regular rate and rhythm, S1, S2 without murmur, rub or gallop. ABDOMEN: Soft, nontender, nondistended, normoactive bowel sounds, no guarding, no rebound, no hepatosplenomegaly, no masses. EXTREMITIES: 2+ pulses, warm, well-perfused, no edema. LABS HOSPITAL COURSE: Date of Admission:04/20/20 Mr. Jiang is a 74M w a h/o HTN, HLD, BPH, CKD3, recent diagnosis of IgG lambda Multiple Myeloma, and recent admission 1 week prior for fern secondary to CKD secondary to MM. The patient had reported feeling warm prior to arrival and had a temperature of 99 during his second chemo session. The patient was admitted on the basis of a fever of 100.4, WBC 14, and a positive L sided CXR for pulmonary infiltrates all in the setting of MM. The patient had been seen by ID and treated with ABX course. Patient's chemotherapy drugs and lasix had been stopped and fever and leukocytosis resolved, the patient was hemodynamically stable and his respiratory status was stable. Patient will follow abx tx outpatient and resume his home medications as well as chemotheraputic sessions. Date of Discharge: 04/26/20 Minutes to complete discharge: 40 Discharge Summary Problems reviewed: Yes Reason For Visit: PNEUMONIA,MULTIPLE MYELOMA Condition: Good - Instructions Diet, Activity, Other Instructions: YOUR VISIT: You were admitted to the hospital for a fever While you were in the hospital, we evaluated you with lab work, blood work, imaging including x rays of your chest showing increased fluid in your lungs. We found that your symptoms were caused by an pneumonia in you left lung. You were evaluated by specialist during your hospital course. You were treated with fluids and antibiotics. You will need to follow up with the heme/oncologist for further treatments. Please follow up with your primary care physician for a repeat blood work (CMP and CBC) and the increased fluid in your lungs. We have made some changes to your Medications: Please START taking Levofloxacin 750 mg ONCE tomorrow (04/24/2020) Please START taking SODIUM BICARB 650 mg twice a day for two days starting tomorrow (04/25/2020-04/27/2020). Continue to take all other home medications as prescribed. Follow up: - Please follow-up with your greenskeeper head Dr. Blount with in 1 week to follow up for a blood test. It is important that you are closely monitored for your kidney functions. Please do CBC and CMP labwork on Friday05/01/20 - Please follow up with your log loader Dr. Calli Maurer in 1 week. - Visit with your Primary Care Provider in 2 weeks. If you do not have a primary care provider you may make an appointment with Dr. Nicanor Bui at the [facility] located at [address] [place] [address] ([phone]). Additional Instructions: -You are being discharged to your (home). -Please return to the Emergency Department if you experience worsening pain, fevers, chills, shortness of breath, or chest pain, or if you experience any worsening, new or concerning symptoms. Referrals: Russell Kendall MD [Primary Care Provider] - 1 Week Calli Cameron MD [Staff Physician] - 1 Week (MM follow up) Anam Chadwick MD [Staff Physician] - 1 Week Reginald Blount MD [Staff Physician] - 1 Week (Follow up of renal dysfunction due to MM) Disposition: HOME - Home Medications Comprehensive Discharge Medication List: Ambulatory Orders Amlodipine Besylate [Norvasc -] 10 mg PO DAILY #30 tablet 09/08/19 Tamsulosin HCl [Flomax -] 0.4 mg PO DAILY@0830 #30 cap.er.24h 09/08/19 Hydralazine HCl 25 mg PO TID 30 Days #90 tablet 11/08/19 Allopurinol [Zyloprim -] 150 mg PO DAILY #30 tablet 04/11/20 Docusate Sodium [Colace -] 100 mg PO BID #30 capsule 04/11/20 Furosemide [Lasix] 40 mg PO DAILY #7 tablet 04/11/20 Labetalol HCl 300 mg PO BID #30 tablet 04/11/20 Polyethylene Glycol 3350 [Miralax 119 gm Btl -] 17 gm PO BID #30 bottle 04/11/20 Atorvastatin Calcium [Lipitor] 10 mg PO HS 04/20/20 Levofloxacin 750 mg PO DAILY 1 Days #1 tablet 04/24/20 Sodium Bicarbonate - 650 mg PO BID #30 tablet 04/24/20 This patient is new to me today: No Emergency Visit: Yes ED Registration Date: 04/20/20 Care time: The patient presented to the Emergency Department on the above date and was hospitalized for further evaluation of their emergent condition. Critical Care patient: No - Discharge Referral Referred to [facility] Med [facility] No ATTENDING PHYSICIAN STATEMENT I saw and evaluated the patient. I reviewed the resident's note and discussed the case with the resident. I agree with the resident's findings and plan as documented. SUBJECTIVE: OBJECTIVE: ASSESSMENT AND PLAN:
== END 2020-04-24 18:03 | disposition home or self-care (01) | DRG 139 ==
LOC: JER 10:27 → JERBED 13:26 → J6S 17:12
PROVIDERS: ADMIT Internal Medicine
DX: J18.9 Pneumonia, unspecified organism (principal); R50.9 Fever, unspecified; E83.52 Hypercalcemia; C90.00 Multiple myeloma not having achieved remission; N17.9 Acute kidney failure, unspecified; N18.3 Chronic kidney disease, stage 3 (moderate); R80.9 Proteinuria, unspecified; E78.5 Hyperlipidemia, unspecified; N40.0 Benign prostatic hyperplasia without lower urinary tract symptoms; D72.829 Elevated white blood cell count, unspecified; D53.9 Nutritional anemia, unspecified; I12.9 Hypertensive chronic kidney disease with stage 1 through stage 4 chronic kidney disease, or unspecified chronic kidney disease
CPT/HCPCS: 36415; 71045-TC-FY; 71046-TC-FY; 80048; 80053; 81003; 82784; 82962; 83605; 83735; 84100; 84484; 85025; 85027; 85610; 85730; 87040; 87086; 93005; 93010; 99285-25; G0480; J0131; J1644; U0003

== ENCOUNTER 2020-05-11 07:21 | Day surgery (SDC) | payer OTHER ==
[2020-05-11] MEDS ORDERED: SODIUM CHLORIDE 500 ML IV ONE (10:00)
[2020-05-11] MEDS ORDERED: DEXAMETHASONE SODIUM PHOSPHATE 20 MG, ONDANSETRON INJECTION 8 MG in SODIUM CHLORIDE 100 ML IVPB ONE (10:00)
[2020-05-11] MEDS ORDERED: BORTEZOMIB (VELCADE) 2.5 MG/ML SUB-Q INJECTION SQ ONE (10:30)
[2020-05-11] MEDS ORDERED: CYCLOPHOSPHAMIDE PO ONE (10:30)
[2020-05-11] MEDS ORDERED: amLODIPine BESYLATE 5 MG TABLET (FP) PO ONE (11:15)
[2020-05-11 12:08] LABS: BASO % 0.4 % (0-2.0); EOS % 2.6 % (0-4.5); HEMATOCRIT 29.9 % (35.4-49); HEMOGLOBIN 9.6 GM/dL (11.7-16.9); LYMPH % 28.3 % (8-40); MCH 33.1 pg (25.7-33.7); MEAN CELL VOLUME 103.4 fl (80-96); MEAN PLT VOLUME 8.3 fl (7.5-11.1); MONO % 18.5 % (3.8-10.2); NEUT % 50.2 % (42.8-82.8); PLATELET COUNT 171 K/MM3 (134-434); RBC 2.89 M/mm3 (4.00-5.60); RDW 21.9 % (11.9-15.9); WHITE BLOOD COUNT 13.9 K/mm3 (4.0-10.0)
[2020-05-11] MEDS ORDERED: amLODIPine BESYLATE 5 MG TABLET (FP) PO PRN (12:12)
[2020-05-11 12:45] LABS: ANISOCYTOSIS 2+; CORRECTED WBC 12.09 K/mm3; MACROCYTOSIS 2+; PLATELET ESTIMATE NORMAL
[2020-05-11 12:56] LABS: ALBUMIN 3.1 g/dl (3.4-5.0); BILIRUBIN,DIRECT 0.1 mg/dL (0.0-0.2); BILIRUBIN,TOTAL 0.4 mg/dL (0.2-1); CALCIUM 8.6 mg/dL (8.5-10.1); MAGNESIUM 2.5 mg/dL (1.8-2.4); POTASSIUM 4.4 mmol/L (3.5-5.1); TOT PROT 9.1 g/dl (6.4-8.2); URIC ACID 7.8 mg/dL (2.6-7.2)
[2020-05-11 16:48] VITALS: BP 170/99; PULSE 83; TEMP 97.5
== END 2020-05-11 15:00 | disposition home or self-care (01) ==
LOC: JONCCHEMO 07:21
PROVIDERS: ATTEND Internal Medicine Hematology & Oncology
PROC: 3E033GC Introduction of Other Therapeutic Substance into Peripheral Vein, Percutaneous Approach (ICD-10-PCS; principal; 2020-05-11)
PROC: 3E033GC Introduction of Other Therapeutic Substance into Peripheral Vein, Percutaneous Approach (ICD-10-PCS; 2020-05-11)
PROC: 3E01305 Introduction of Other Antineoplastic into Subcutaneous Tissue, Percutaneous Approach (ICD-10-PCS; 2020-05-11)
DX: Z51.11 Encounter for antineoplastic chemotherapy (principal); C90.00 Multiple myeloma not having achieved remission
CPT/HCPCS: 36415; 80048; 80076; 83615; 83735; 84550; 85025; 96361; 96365; 96401; J8530; J9041

== ENCOUNTER 2020-05-25 07:18 | Day surgery (SDC) | payer OTHER ==
[2020-05-25] MEDS ORDERED: DEXAMETHASONE SODIUM PHOSPHATE 20 MG, ONDANSETRON INJECTION 8 MG in SODIUM CHLORIDE 100 ML IVPB ONE (10:00)
[2020-05-25] MEDS ORDERED: SODIUM CHLORIDE 0.45% 500 ML IV ONE (10:00)
[2020-05-25] MEDS ORDERED: BORTEZOMIB (VELCADE) 2.5 MG/ML SUB-Q INJECTION SQ ONE (10:30)
[2020-05-25] MEDS ORDERED: CYCLOPHOSPHAMIDE PO ONE (10:30)
[2020-05-25] MEDS ORDERED: amLODIPine BESYLATE 5 MG TABLET (FP) PO ONE (12:15)
[2020-05-25 12:19] LABS: EOS % 5.9 % (0-4.5); HEMATOCRIT 31.2 % (35.4-49); HEMOGLOBIN 10.2 GM/dL (11.7-16.9); MCH 34.5 pg (25.7-33.7); MCHC 32.8 g/dl (32.0-35.9); MEAN CELL VOLUME 105.3 fl (80-96); MEAN PLT VOLUME 7.9 fl (7.5-11.1); MONO % 15.2 % (3.8-10.2); NEUT % 53.9 % (42.8-82.8); PLATELET COUNT 190 K/MM3 (134-434); RBC 2.96 M/mm3 (4.00-5.60); RDW 22.4 % (11.9-15.9); WHITE BLOOD COUNT 8.2 K/mm3 (4.0-10.0)
[2020-05-25 12:45] LABS: ALK PHOS 81 U/L (45-117); BILIRUBIN,DIRECT < 0.1 mg/dL (0.0-0.2); BILIRUBIN,TOTAL 0.2 mg/dL (0.2-1); BLOOD UREA NITROGEN 39.8 mg/dL (7-18); CALCIUM 7.7 mg/dL (8.5-10.1); CHLORIDE 110 mmol/L (98-107); CO2 20 mmol/L (21-32); CREATININE 4.3 mg/dL (0.55-1.3); GLUCOSE,RANDOM 94 mg/dL (74-106); MAGNESIUM 2.3 mg/dL (1.8-2.4); SGOT/AST 76 U/L (15-37); SGPT/ALT 35 U/L (13-61); SODIUM 133 mmol/L (136-145); TOT PROT 9.3 g/dl (6.4-8.2); URIC ACID 8.1 mg/dL (2.6-7.2)
[2020-05-25 12:46] LABS: LDH 787 U/L (87-246)
[2020-05-25 12:53] LABS: ANION GAP 4 MMOL/L (8-16)
[2020-05-25 13:04] LABS: POTASSIUM 9.4 mmol/L (3.5-5.1)
[2020-05-25 13:36] LABS: ANISOCYTOSIS 2+; MACROCYTOSIS 2+; PLATELET ESTIMATE NORMAL
[2020-05-25 14:13] LABS: ALBUMIN 3.1 g/dl (3.4-5.0); BLOOD UREA NITROGEN 41.4 mg/dL (7-18); POTASSIUM 4.7 mmol/L (3.5-5.1)
[2020-05-25 14:17] LABS: BILIRUBIN,DIRECT 0.1 mg/dL (0.0-0.2); BILIRUBIN,TOTAL 0.3 mg/dL (0.2-1); CREATININE 4.1 mg/dL (0.55-1.3); URIC ACID 8.2 mg/dL (2.6-7.2)
[2020-05-25 17:38] VITALS: TEMP 97.7
[2020-05-25 17:46] VITALS: BP 171/95; PULSE 67
== END 2020-05-25 15:40 | disposition home or self-care (01) ==
LOC: JONCCHEMO 07:18
PROVIDERS: ATTEND Internal Medicine Hematology & Oncology
PROC: 3E01305 Introduction of Other Antineoplastic into Subcutaneous Tissue, Percutaneous Approach (ICD-10-PCS; principal; 2020-05-25)
PROC: 3E033GC Introduction of Other Therapeutic Substance into Peripheral Vein, Percutaneous Approach (ICD-10-PCS; 2020-05-25)
PROC: 3E0C3GC Introduction of Other Therapeutic Substance into Eye, Percutaneous Approach (ICD-10-PCS; 2020-05-25)
DX: Z51.11 Encounter for antineoplastic chemotherapy (principal); C90.00 Multiple myeloma not having achieved remission
CPT/HCPCS: 36415; 80048; 80076; 83615; 83735; 84153; 84550; 85025; 96361; 96365; 96401; J9041

== ENCOUNTER 2020-06-01 07:13 | Day surgery (SDC) | payer OTHER ==
[2020-06-01] MEDS ORDERED: SODIUM CHLORIDE 0.45% 500 ML IV ONE (14:00)
[2020-06-01] MEDS ORDERED: DEXAMETHASONE SODIUM PHOSPHATE 20 MG, ONDANSETRON INJECTION 8 MG in SODIUM CHLORIDE 100 ML IVPB ONE (14:30)
[2020-06-01 14:34] LABS: BASO % 0.6 % (0-2.0); EOS % 5.7 % (0-4.5); HEMOGLOBIN 10.1 GM/dL (11.7-16.9); LYMPH % 16.1 % (8-40); MCHC 32.6 g/dl (32.0-35.9); MEAN CELL VOLUME 104.3 fl (80-96); MEAN PLT VOLUME 7.9 fl (7.5-11.1); MONO % 15.9 % (3.8-10.2); NEUT % 61.7 % (42.8-82.8); PLATELET COUNT 139 K/MM3 (134-434); RBC 2.97 M/mm3 (4.00-5.60); RDW 20.5 % (11.9-15.9); WHITE BLOOD COUNT 9.7 K/mm3 (4.0-10.0)
[2020-06-01 14:48] LABS: CALCIUM 8.3 mg/dL (8.5-10.1); CREATININE 4.2 mg/dL (0.55-1.3); POTASSIUM 4.1 mmol/L (3.5-5.1)
[2020-06-01 14:56] LABS: ALBUMIN 3.2 g/dl (3.4-5.0); BILIRUBIN,DIRECT 0.1 mg/dL (0.0-0.2); BILIRUBIN,TOTAL 0.3 mg/dL (0.2-1); TOT PROT 9.1 g/dl (6.4-8.2); URIC ACID 7.2 mg/dL (2.6-7.2)
[2020-06-01] MEDS ORDERED: CYCLOPHOSPHAMIDE PO ONE (15:00)
[2020-06-01] MEDS ORDERED: BORTEZOMIB (VELCADE) 2.5 MG/ML SUB-Q INJECTION SQ ONE (15:00)
[2020-06-01 15:17] LABS: ANISOCYTOSIS 1+; MACROCYTOSIS 1+; PLATELET ESTIMATE DECREASED
[2020-06-01 17:09] LABS: EPI CELLS 4 /uL (0-25.1); HYALINE CASTS 2 /uL (0-3.1); URINE APPEARANCE CLEAR; URINE BACTERIA 27 /uL (0-1359); URINE BILIRUBIN NEGATIVE (NEGATIVE); URINE COLOR YELLOW; URINE GLUCOSE (UA) NEGATIVE (NEGATIVE); URINE KETONE NEGATIVE (NEGATIVE); URINE LEUK ESTERASE NEGATIVE (NEGATIVE); URINE NITRITE NEGATIVE (NEGATIVE); URINE PROTEIN 3+ (NEGATIVE); URINE RBC 26 /uL (0-23.9); URINE UROBILINOGEN 0.2 mg/dL (0.2-1.0); URINE WBC 7 /uL (0-25.8)
[2020-06-01 17:59] VITALS: BP 137/73; PULSE 75; TEMP 98.3
[2020-06-03 18:08] LABS: FREE KAPPA,SERUM 22.8 mg/L (3.3-19.4)
[2020-06-05 16:08] LABS: BETA-2-MICROGLOBULIN 12.4 mg/L (0.6-2.4)
[2020-06-06 05:07] LABS: FREE KAP CHN UR 96.97 mg/L (0.63-113.79); KAPPA LAMBDA RATIO URIN 2.29 (1.03-31.76)
== END 2020-06-01 17:06 | disposition home or self-care (01) ==
LOC: JONCCHEMO 07:13
PROVIDERS: ATTEND Internal Medicine Hematology & Oncology
PROC: 3E033GC Introduction of Other Therapeutic Substance into Peripheral Vein, Percutaneous Approach (ICD-10-PCS; principal; 2020-06-01)
PROC: 3E033GC Introduction of Other Therapeutic Substance into Peripheral Vein, Percutaneous Approach (ICD-10-PCS; 2020-06-01)
PROC: 3E01305 Introduction of Other Antineoplastic into Subcutaneous Tissue, Percutaneous Approach (ICD-10-PCS; 2020-06-01)
DX: Z51.11 Encounter for antineoplastic chemotherapy (principal); C90.00 Multiple myeloma not having achieved remission
CPT/HCPCS: 36415; 80048; 80076; 81003; 82232; 82784; 83615; 83735; 83883; 84550; 85025; 87086; 96361; 96365; 96401; J9041

== ENCOUNTER 2020-06-08 05:58 | Day surgery (SDC) | payer OTHER ==
[2020-06-08] MEDS ORDERED: SODIUM CHLORIDE 0.9% 500 ML IV ONE (09:00)
[2020-06-08] MEDS ORDERED: DEXAMETHASONE SODIUM PHOSPHATE 20 MG, ONDANSETRON INJECTION 8 MG in SODIUM CHLORIDE 100 ML IVPB ONE (09:30)
[2020-06-08] MEDS ORDERED: amLODIPine BESYLATE 5 MG TABLET (FP) PO ONE (09:30)
[2020-06-08] MEDS ORDERED: BORTEZOMIB (VELCADE) 2.5 MG/ML SUB-Q INJECTION SQ ONE (10:00)
[2020-06-08] MEDS ORDERED: CYCLOPHOSPHAMIDE PO ONE (10:00)
[2020-06-08] MEDS ORDERED: SODIUM CHLORIDE 0.45% 500 ML IV ONE (10:30)
[2020-06-08 11:13] LABS: BASO % 1.2 % (0-2.0); EOS % 7.4 % (0-4.5); HEMATOCRIT 32.1 % (35.4-49); HEMOGLOBIN 10.4 GM/dL (11.7-16.9); LYMPH % 27.3 % (8-40); MCHC 32.2 g/dl (32.0-35.9); MEAN CELL VOLUME 102.5 fl (80-96); MEAN PLT VOLUME 7.6 fl (7.5-11.1); MONO % 16.4 % (3.8-10.2); NEUT % 47.7 % (42.8-82.8); PLATELET COUNT 165 K/MM3 (134-434); RBC 3.14 M/mm3 (4.00-5.60); RDW 21.2 % (11.9-15.9); WHITE BLOOD COUNT 6.8 K/mm3 (4.0-10.0)
[2020-06-08 11:47] LABS: ALBUMIN 3.3 g/dl (3.4-5.0); BILIRUBIN,DIRECT 0.1 mg/dL (0.0-0.2); BILIRUBIN,TOTAL 0.3 mg/dL (0.2-1); BLOOD UREA NITROGEN 43.4 mg/dL (7-18); CALCIUM 8.9 mg/dL (8.5-10.1); CREATININE 4.3 mg/dL (0.55-1.3); MAGNESIUM 2.2 mg/dL (1.8-2.4); POTASSIUM 4.2 mmol/L (3.5-5.1); TOT PROT 9.1 g/dl (6.4-8.2); URIC ACID 6.5 mg/dL (2.6-7.2)
[2020-06-08 12:30] LABS: ANISOCYTOSIS 2+; MACROCYTOSIS 2+; PLATELET ESTIMATE NORMAL
[2020-06-08 13:51] VITALS: TEMP 97.8
[2020-06-08 15:51] VITALS: BP 158/84; PULSE 64
[2020-06-08 17:09] LABS: EPI CELLS 5 /uL (0-25.1); HYALINE CASTS 1 /uL (0-3.1); PH,URINE 5.5 (5.0-8.0); URINE APPEARANCE CLEAR; URINE BACTERIA 11 /uL (0-1359); URINE BILIRUBIN NEGATIVE (NEGATIVE); URINE COLOR YELLOW; URINE GLUCOSE (UA) NEGATIVE (NEGATIVE); URINE KETONE NEGATIVE (NEGATIVE); URINE LEUK ESTERASE NEGATIVE (NEGATIVE); URINE NITRITE NEGATIVE (NEGATIVE); URINE PROTEIN 3+ (NEGATIVE); URINE RBC 21 /uL (0-23.9); URINE UROBILINOGEN 0.2 mg/dL (0.2-1.0); URINE WBC 7 /uL (0-25.8)
== END 2020-06-08 14:00 | disposition home or self-care (01) ==
LOC: JONCCHEMO 05:58
PROVIDERS: ATTEND Internal Medicine Hematology & Oncology
PROC: 3E01305 Introduction of Other Antineoplastic into Subcutaneous Tissue, Percutaneous Approach (ICD-10-PCS; principal; 2020-06-08)
PROC: 3E033GC Introduction of Other Therapeutic Substance into Peripheral Vein, Percutaneous Approach (ICD-10-PCS; 2020-06-08)
PROC: 3E0337Z Introduction of Electrolytic and Water Balance Substance into Peripheral Vein, Percutaneous Approach (ICD-10-PCS; 2020-06-08)
DX: Z51.11 Encounter for antineoplastic chemotherapy (principal); C90.00 Multiple myeloma not having achieved remission
CPT/HCPCS: 36415; 80048; 80076; 81003; 83615; 83735; 84550; 85025; 87086; 96361; 96365; 96401; J2405; J9041

== ENCOUNTER 2020-06-15 07:11 | Day surgery (SDC) | payer OTHER ==
[2020-06-15] MEDS ORDERED: SODIUM CHLORIDE 0.45% 500 ML IV ONE (09:00)
[2020-06-15] MEDS ORDERED: DEXAMETHASONE SODIUM PHOSPHATE 20 MG, ONDANSETRON INJECTION 8 MG in SODIUM CHLORIDE 100 ML IVPB ONE (10:30)
[2020-06-15] MEDS ORDERED: CYCLOPHOSPHAMIDE PO ONE (10:30)
[2020-06-15 10:48] LABS: BASO % 0.5 % (0-2.0); HEMATOCRIT 32.1 % (35.4-49); HEMOGLOBIN 10.5 GM/dL (11.7-16.9); LYMPH % 14.8 % (8-40); MCH 33.3 pg (25.7-33.7); MCHC 32.8 g/dl (32.0-35.9); MEAN CELL VOLUME 101.6 fl (80-96); MEAN PLT VOLUME 7.7 fl (7.5-11.1); MONO % 12.2 % (3.8-10.2); NEUT % 67.5 % (42.8-82.8); PLATELET COUNT 163 K/MM3 (134-434); RBC 3.16 M/mm3 (4.00-5.60); RDW 21.1 % (11.9-15.9); WHITE BLOOD COUNT 8.6 K/mm3 (4.0-10.0)
[2020-06-15] MEDS ORDERED: DENOSUMAB 120 MG/1.7 ML VIAL SQ ONE (11:00)
[2020-06-15] MEDS ORDERED: BORTEZOMIB (VELCADE) 2.5 MG/ML SUB-Q INJECTION SQ ONE (11:00)
[2020-06-15 11:24] LABS: ALBUMIN 3.2 g/dl (3.4-5.0); BILIRUBIN,DIRECT 0.1 mg/dL (0.0-0.2); BILIRUBIN,TOTAL 0.3 mg/dL (0.2-1); BLOOD UREA NITROGEN 38.7 mg/dL (7-18); CALCIUM 7.9 mg/dL (8.5-10.1); CREATININE 4.1 mg/dL (0.55-1.3); MAGNESIUM 2.1 mg/dL (1.8-2.4); POTASSIUM 4.4 mmol/L (3.5-5.1); TOT PROT 8.5 g/dl (6.4-8.2); URIC ACID 6.2 mg/dL (2.6-7.2)
[2020-06-15 11:28] LABS: ANISOCYTOSIS 2+; MACROCYTOSIS 1+; PLATELET ESTIMATE DECREASED
[2020-06-15 15:34] VITALS: BP 138/71; PULSE 70; TEMP 98.1
== END 2020-06-15 15:00 | disposition home or self-care (01) ==
LOC: JONCCHEMO 07:11
PROVIDERS: ATTEND Internal Medicine Hematology & Oncology
PROC: 3E01305 Introduction of Other Antineoplastic into Subcutaneous Tissue, Percutaneous Approach (ICD-10-PCS; principal; 2020-06-15)
PROC: 3E013GC Introduction of Other Therapeutic Substance into Subcutaneous Tissue, Percutaneous Approach (ICD-10-PCS; 2020-06-15)
PROC: 3E0337Z Introduction of Electrolytic and Water Balance Substance into Peripheral Vein, Percutaneous Approach (ICD-10-PCS; 2020-06-15)
DX: Z51.11 Encounter for antineoplastic chemotherapy (principal); C90.00 Multiple myeloma not having achieved remission; D47.2 Monoclonal gammopathy
CPT/HCPCS: 36415; 80048; 80076; 83615; 83735; 84550; 85025; 96361; 96365; 96375; 96401; J0897; J2405; J9041

== ENCOUNTER 2020-06-22 06:28 | Day surgery (SDC) | payer OTHER ==
[2020-06-22] MEDS ORDERED: SODIUM CHLORIDE 0.45% 500 ML IV ONE (09:00)
[2020-06-22] MEDS ORDERED: DEXAMETHASONE SODIUM PHOSPHATE 20 MG, ONDANSETRON INJECTION 8 MG in SODIUM CHLORIDE 100 ML IVPB ONE (09:30)
[2020-06-22] MEDS ORDERED: CYCLOPHOSPHAMIDE PO ONE (10:00)
[2020-06-22] MEDS ORDERED: BORTEZOMIB (VELCADE) 2.5 MG/ML SUB-Q INJECTION SQ ONE (10:00)
[2020-06-22 12:48] LABS: BASO % 1.1 % (0-2.0); EOS % 4.2 % (0-4.5); HEMATOCRIT 31.2 % (35.4-49); HEMOGLOBIN 10.5 GM/dL (11.7-16.9); LYMPH % 20.3 % (8-40); MCH 34.1 pg (25.7-33.7); MCHC 33.5 g/dl (32.0-35.9); MEAN CELL VOLUME 101.7 fl (80-96); MEAN PLT VOLUME 8.2 fl (7.5-11.1); NEUT % 58.4 % (42.8-82.8); PLATELET COUNT 186 K/MM3 (134-434); RBC 3.07 M/mm3 (4.00-5.60); WHITE BLOOD COUNT 5.7 K/mm3 (4.0-10.0)
[2020-06-22 13:14] LABS: ALBUMIN 3.3 g/dl (3.4-5.0); BILIRUBIN,DIRECT 0.1 mg/dL (0.0-0.2); BILIRUBIN,TOTAL 0.3 mg/dL (0.2-1); BLOOD UREA NITROGEN 34.3 mg/dL (7-18); CALCIUM 8.9 mg/dL (8.5-10.1); CREATININE 3.9 mg/dL (0.55-1.3); MAGNESIUM 2.5 mg/dL (1.8-2.4); POTASSIUM 4.8 mmol/L (3.5-5.1); TOT PROT 8.8 g/dl (6.4-8.2); URIC ACID 6.1 mg/dL (2.6-7.2)
[2020-06-22 16:16] VITALS: BP 147/86; PULSE 78; TEMP 98
[2020-06-23 18:11] LABS: FREE KAPPA,SERUM 35.3 mg/L (3.3-19.4)
[2020-06-26 16:09] LABS: FREE KAP CHN UR 41.69 mg/L (0.63-113.79); KAPPA LAMBDA RATIO URIN 2.95 (1.03-31.76)
== END 2020-06-22 15:40 | disposition home or self-care (01) ==
LOC: JONCCHEMO 06:28
PROVIDERS: ATTEND Internal Medicine Hematology & Oncology
PROC: 3E01305 Introduction of Other Antineoplastic into Subcutaneous Tissue, Percutaneous Approach (ICD-10-PCS; principal; 2020-06-22)
PROC: 3E033GC Introduction of Other Therapeutic Substance into Peripheral Vein, Percutaneous Approach (ICD-10-PCS; 2020-06-22)
PROC: 3E033GC Introduction of Other Therapeutic Substance into Peripheral Vein, Percutaneous Approach (ICD-10-PCS; 2020-06-22)
DX: Z51.11 Encounter for antineoplastic chemotherapy (principal); C90.00 Multiple myeloma not having achieved remission; D47.2 Monoclonal gammopathy
CPT/HCPCS: 36415; 80048; 80076; 82784; 83735; 83883; 84550; 85025; 86335; 96361; 96365; 96401; J2405; J9041

== ENCOUNTER 2020-06-29 06:39 | Day surgery (SDC) | payer OTHER ==
--- OUTSIDE RECORDS SUMMARY | 2020-06-29 07:04 | XMS ---
:1945 Author Organization [facility] Care Team Providers Name Role Phone Enoch, Russell Unavailable Enoch, Russell Unavailable Enoch, Russell Unavailable Enoch, Russell Unavailable Enoch, Russell Unavailable Brayden HINOJOSA MD Jose Enrique Unavailable Brayden HINOJOSA MD Jose Enrique Unavailable + Brayden HINOJOSA MD Jose Enrique Unavailable Re-disclosure Warning The records that you are about to access may contain information from federally- assisted alcohol or drug abuse programs. If such information is present, then the following federally mandated warning applies: This information has been disclosed to you from records protected by federal confidentiality rules (42 CFR part 2). The federal rules prohibit you from making any further disclosure of this information unless further disclosure is expressly permitted by the written consent of the person to whom it pertains or as otherwise permitted by 42 CFR part 2. A general authorization for the release of medical or other information is NOT sufficient for this purpose. The Federal rules restrict any use of the information to criminally investigate or prosecute any alcohol or drug abuse patient.The records that you are about to access may contain highly sensitive health information, the redisclosure of which is protected by Article 27-F of the [facility] Public Health law. If you continue you may haveaccess to information: Regarding HIV / AIDS; Provided by facilities licensed or operated by the [facility] Office of Mental Health; or Provided by the [facility] Office for People With Developmental Disabilities. If such information is present, then the following [facility] mandated warning applies: This information has been disclosed to you from confidential records which are protected by state law. State law prohibits you from making any further disclosure of this information without the specific written consent of the person to whom it pertains, or as otherwise permitted by law. Any unauthorized further disclosure in violation of state law may result in a fine or fdc sentence or both. A general authorization for the release of medical or other information is NOT sufficient authorization for further disclosure. Encounters Encounter Providers Location Date Indications Data Source(s ) Attender: MD Quispe 06/14/2020 [facility] 12:00:00 AM EDT [facility]) Office Attender: MD Jose Enrique [facility] 06/14/2020 12:00:00 A M EDT [facility] ([facility] Office Attender: MD Jose Enrique Owen 06/14/2020 12:00:00 A M EDT [facility] ([facility] Office Attender: MD Jose Enrique Owen 06/14/2020 12:00:00 A M EDT [facility] Office Attender: MD Jose Enrique Owen 06/14/2020 12:00:00 A M EDT [facility] Office Attender: MD Jose Enrique Owen 06/14/2020 12:00:00 A M EDT [facility] Office Attender: MD Jose Enrique Owen 05/31/2020 12:00:00 A M EDT [facility] ([facility] Office Attender: MD Jose Enrique Owen 05/31/2020 12:00:00 A M EDT [facility] Office Attender: MD Jose Enrique Owen 05/31/2020 12:00:00 A M EDT [facility] Office Attender: MD Jose Enrique Owen 05/31/2020 12:00:00 A M EDT [facility] Office Attender: MD Jose Enrique Owen 05/31/2020 12:00:00 A M EDT [facility] Office Attender: MD Jose Enrique Owen 05/31/2020 12:00:00 A M EDT [facility] Office Attender: MD Jose Enrique Owen 05/31/2020 12:00:00 A M EDT [facility] Office Attender: MD Jose Enrique Owne 05/31/2020 12:00:00 A M EDT [facility] Office Attender: MD Jose Enrique Owen 05/31/2020 12:00:00 A M EDT [facility] Office Attender: MD Jose Enrique Owen 05/31/2020 12:00:00 A M EDT [facility] Office Attender: MD Jose Enrique Owen 05/31/2020 12:00:00 A M EDT [facility] Office Attender: MD Jose Enrique Owen 05/31/2020 12:00:00 A M EDT [facility] Office Attender: MD Jose Enrique Owen 05/31/2020 12:00:00 A M EDT [facility] Office Attender: MD Jose Enrique Owen 05/31/2020 12:00:00 A M EDT [facility] ) Office Attender: MD Jose Enrique Owen 05/31/2020 12:00:00 A M EDT [facility] ) Office Attender: Russell Kendall 05/05/2020 12:00:00 AM E DT [facility] ([facility], ) Office Attender: Russell Kendall 05/05/2020 12:00:00 AM E DT [facility] ([facility], ) Office Attender: Russell Kendall 05/05/2020 12:00:00 AM E DT [facility] ([facility] Office Attender: MD Jose Enrique Owen 05/03/2020 12:00:00 A M EDT [facility] Office Attender: MD Jose Enrique Owen 05/03/2020 12:00:00 A M EDT [facility] Office Attender: MD Jose Enrique Owen 05/03/2020 12:00:00 A M EDT [facility] Office Attender: MD Jose Enrique Owen 05/03/2020 12:00:00 A M EDT [facility] ) Office Attender: MD Jose Enrique Owen 05/03/2020 12:00:00 A M EDT [facility] Office Attender: MD Jose Enrique Owen 05/03/2020 12:00:00 A M EDT [facility] Office Attender: MD Jose Enrique Owen 05/03/2020 12:00:00 A M EDT [facility] Office [facility] 05/02[facility]2020 10:37[facility] Attender: MD Jose Enrique Owen 04/26/2020 12:00:00 A M EDT [facility] ) Office Attender: MD Jose Enrique Owen 04/26/2020 12:00:00 A M EDT [facility] Office Attender: MD Jose Enrique Owen 04/26/2020 12:00:00 A M EDT [facility] Office Attender: MD Jose Enrique Owen 04/26/2020 12:00:00 A M EDT [facility] Office Attender: MD Jose Enrique Owen 04/26/2020 12:00:00 A M EDT [facility] ) Office Attender: MD Jose Enrique Owen 04/26/2020 12:00:00 A M EDT [facility] ([facility], ) Office Attender: MD Jose Enrique Owen 04/26/2020 12:00:00 A M EDT [facility] ([facility], ) Office Attender: MD Jose Enrique Owen 04/19/2020 12:00:00 A M EDT [facility] ) Office Attender: MD Jose Enrique Owen 04/19/2020 12:00:00 A M EDT [facility] ) Office Attender: MD Jose Enrique Owen 04/19/2020 12:00:00 A M EDT [facility] ([facility], ) Office Attender: MD Jose Enrique Owen 04/19/2020 12:00:00 A M EDT [facility] ([facility], ) Office Attender: MD Jose Enrique Owen 04/19/2020 12:00:00 A M EDT [facility] ([facility], ) Office Attender: MD Jose Enrique Owen 04/19/2020 12:00:00 A M EDT [facility] ) Office Attender: MD Jose Enrique Owen 04/12/2020 12:00:00 A M EDT [facility] ([facility] ) Lab Attender: MD Jose Enrique Owen 04/12/2020 12:00:00 A M EDT [facility] ([facility] ) Lab Attender: MD Jose Enrique Owen 04/12/2020 12:00:00 A M EDT [facility] ([facility] ) Lab Attender: MD Jose Enrique Owen 04/12/2020 12:00:00 A M EDT [facility] ([facility] ) Lab Attender: MD Jose Enrique Owen 04/12/2020 12:00:00 A M EDT [facility] ([facility], ) Lab Attender: Russell Kendall 03/24/2020 12:00:00 AM E DT [facility] ([facility], ) Office Attender: Russell Kendall 03/24/2020 12:00:00 AM E DT [facility] ([facility]) Office Attender: Russell Kendall 03/24/2020 12:00:00 AM E DT [facility] ([facility]) Office Attender: Russell Kendall 03/24/2020 12:00:00 AM E DT [facility] ([facility]) Office Attender: Russell Kendall 03/24/2020 12:00:00 AM E DT [facility] ([facility]) Office Attender: Russell Kendall 03/24/2020 12:00:00 AM E DT [facility] ([facility]) Office Attender: MD Jose Enrique Owen 03/22/2020 12:00:00 A M EDT [facility] Office Attender: MD Jose Enrique Owen 03/22/2020 12:00:00 A M EDT [facility] ([facility] ) Office Attender: MD Jose Enrique Owen 03/22/2020 12:00:00 A M EDT [facility] ([facility], ) Office Attender: MD Jose Enrique Owen 03/22/2020 12:00:00 A M EDT [facility] ) Office Attender: MD Jose Enrique Owen 03/22/2020 12:00:00 A M EDT [facility] Office Attender: MD Jose Enrique Owen 03/22/2020 12:00:00 A M EDT [facility] ) Office Attender: MD Jose Enrique Owen 03/22/2020 12:00:00 A M EDT [facility] ) Office Attender: MD Jose Enrique Owen 03/22/2020 12:00:00 A M EDT [facility] ) Office Attender: MD Jose Enrique Owen 03/22/2020 12:00:00 A M EDT [facility] Office Outpatient 11/02/2019 04:18:00 PM [facility] Outpatient 11/02/2019 12:00:00 AM [facility] 10/21/2019 04:12:00 PM [facility] Patient admitted. Immunizations Vaccine Date Status Description Data Source(s) Pneumococcal conjugate 08/27/2019 completed [facility] ([facility] 12:00:00 AM EST Medical, PC) New in 2011. IIV4 08/27/2019 completed [facility] ([facility] 12:00:00 AM EST Medical, PC) Pneumococcal conjugate 08/27/2019 completed [facility] ([facility] 12:00:00 AM EST Medical, PC) New in 2011. IIV4 08/27/2019 completed [facility] ([facility] 12:00:00 AM EST Medical, PC) Pneumococcal conjugate 08/27/2019 completed [facility] ([facility] 12:00:00 AM EST Medical, PC) New in 2011. IIV4 08/27/2019 completed [facility] ([facility] 12:00:00 AM EST Medical, PC) Pneumococcal conjugate 08/27/2019 completed [facility] ([facility] 12:00:00 AM EST Medical, PC) New in 2011. IIV4 08/27/2019 completed [facility] ([facility] 12:00:00 AM EST Medical, PC) Pneumococcal conjugate 08/27/2019 completed [facility] ([facility] 12:00:00 AM EST Medical, PC) New in 2011. IIV4 08/27/2019 completed [facility] ([facility] 12:00:00 AM EST Medical, PC) Pneumococcal conjugate 08/27/2019 completed [facility] ([facility] 12:00:00 AM EST Medical, PC) New in 2011. IIV4 08/27/2019 completed [facility] ([facility] 12:00:00 AM EST Medical, PC) Pneumococcal conjugate 08/27/2019 completed [facility] ([facility] 12:00:00 AM EST Medical, PC) New in 2011. IIV4 08/27/2019 completed [facility] ([facility] 12:00:00 AM EST Medical, PC) Pneumococcal conjugate 08/27/2019 completed [facility] ([facility] 12:00:00 AM EST Medical, ) New in 2011. IIV4 08/27/2019 completed [facility] ([facility] 12:00:00 AM [facility] Medical, ) Pneumococcal conjugate 08/27/2019 completed [facility]GE [facility] ([facility] 12:00:00 AM [facility] Medical, ) New in 2011. IIV4 08/27/2019 completed [facility] ([facility] 12:00:00 AM [facility] Medical, ) Pneumococcal conjugate 08/27/2019 completed [facility] ([facility] 12:00:00 AM [facility] Medical, ) New in 2011. IIV4 08/27/2019 completed [facility] ([facility] 12:00:00 AM [facility] Medical, ) Pneumococcal conjugate 08/27/2019 completed [facility] ([facility] 12:00:00 AM [facility] Medical, ) New in 2011. IIV4 08/27/2019 completed [facility] ([facility] 12:00:00 AM [facility] Medical, ) Medications Medication Brand Start Product Dose Route [facility] Indications Reaction Description Data Name Date Form Instructions Instructions Source(s) 24 HR NIFEDI 06/14/ TABLET, 90 complet NIFEDIPIN E [facility] (St Nifedipine PINE:1 2019 EXTENDED ed [facility] 60 MG [id number] 12:00: RELEASE Medical, Extended 00 AM PC) Release EDT Oral Tablet NIFEDIPINE: 735274 Labetalol LABETA 06/14/ TABLET 60 complet LABETA LOL [facility] (St hydrochlori LOL:89 2019 ed [facility] de 300 MG 6766 12:00: Medical, Oral Tablet 00 AM PC) LABETALOL:8 EDT 06045 Furosemide FUROSE 06/14/ TABLET 30 complet FUROS EMIDE [facility] (St 20 MG Oral MIDE:3 2019 ed [facility] Tablet 15542 12:00: Medical, FUROSEMIDE: 00 AM PC) 156896 EDT Oxybutynin OXYBUT 06/13/ TABLET 30 complet OXYBU TYNIN [facility] (St chloride 5 YNIN:8 2019 ed [facility] MG Oral 07642 12:00: Medical, Tablet 00 AM PC) OXYBUTYNIN: EDT 569941 Docusate DOCUSA 05/31/ CAPSULE 270 complet DOCUSA TE [facility] (St Sodium 100 TE:111 2019 ed [facility] MG Oral 5005 12:00: Medical, Capsule 00 AM PC) DOCUSATE:11 EDT 66495 Hydroxyzine HYDROX complet HYDROX YZINE [facility] (St Hydrochlori YZINE: 2019 ed [facility] de 10 MG 201389 12:00: Medical , Oral Tablet 00 AM PC) HYDROXYZINE EDT :323853 AQUAPHOR:20 05/31/ OINTMENT 1 complet AQUA PHOR [facility] (St 17770 2019 ed [facility] 12:00: Medical, 00 AM PC) EDT Docusate DOCUSA 05/31/ CAPSULE 270 complet DOCUSA TE [facility] (St Sodium 100 TE:111 2019 ed [facility] MG Oral 5005 12:00: Medical, Capsule 00 AM PC) DOCUSATE:11 EDT 29435 AQUAPHOR:20 05/31/ OINTMENT 1 complet AQUA PHOR MED[facility] (St 95513 2019 ed [facility] 12:00: Medical, 00 AM PC) EDT Hydroxyzine HYDROX complet HYDROX YZINE [facility] (St Hydrochlori YZINE: 2019 ed [facility] de 10 MG [id number] 12:00: Medical , Oral Tablet 00 AM PC) HYDROXYZINE EDT :593285 Oxybutynin OXYBUT 08/05/ TABLET 30 complet OXYBU TYNIN [facility] (St chloride 5 YNIN:8 2019 ed [facility] MG Oral 24096 12:00: Medical, Tablet 00 AM PC) OXYBUTYNIN: EDT 808880 24 HR NIFEDI 08/05/ TABLET, 90 complet NIFEDIPIN E [facility] (St Nifedipine PINE:1 2019 EXTENDED ed [facility] 30 MG 84895 12:00: RELEASE Medical, Extended 00 AM PC) Release EDT Oral Tablet NIFEDIPINE: [id number] 24 HR NIFEDI 08/05/ TABLET, 90 complet NIFEDIPIN E [facility] (St Nifedipine PINE:1 2019 EXTENDED ed [facility] 30 MG 97462 12:00: RELEASE Medical, Extended 00 AM PC) Release EDT Oral Tablet NIFEDIPINE: 19791208 Oxybutynin OXYBUT 08/05/ TABLET 30 complet OXYBU TYNIN [facility] (St chloride 5 YNIN:8 2019 ed [facility] MG Oral 56644 12:00: Medical, Tablet 00 AM PC) OXYBUTYNIN: EDT 102509 Oxybutynin OXYBUT 05/10/ TABLET 30 complet OXYBU TYNIN [facility] (St chloride 5 YNIN:8 2019 ed [facility] MG Oral 13610 12:00: Medical, Tablet 00 AM PC) OXYBUTYNIN: EDT 656167 24 HR NIFEDI 05/10/ TABLET, 90 complet NIFEDIPIN E [facility] (St Nifedipine PINE:1 2019 EXTENDED ed [facility] 30 MG 87589 12:00: RELEASE Medical, Extended 00 AM PC) Release EDT Oral Tablet NIFEDIPINE: 411211 MU-ISM complet MU-ISM [facility]GEN (St THERMOMETER 2020 ed THERMOMETER [facility] MISCELLANEO 12:00: MISCELLANEO U Medical, US: 00 AM S PC) EDT MU-ISM complet MU-ISM MEDGEN (St THERMOMETER 2020 ed THERMOMETER [facility] MISCELLANEO 12:00: MISCELLANEO U Medical, US: 00 AM S PC) EDT MU-ISM complet MU-ISM MEDGEN (St THERMOMETER 2020 ed THERMOMETER J [facility] MISCELLANEO 12:00: MISCELLANEO U Medical, US: 00 AM S PC) EDT MU-ISM complet MU-ISM MEDGEN (St THERMOMETER 2020 ed THERMOMETER [facility] MISCELLANEO 12:00: MISCELLANEO U Medical, US: 00 AM S PC) EDT Allopurinol ALLOPU 05/05/ TABLET 30 complet ALLO PURINOL [facility] (St ALLOPURINOL RINOL: 2019 ed [facility] :519 519 12:00: Medical, 00 AM PC) EDT Sodium SODIUM 05/05/ TABLET 360 complet SODIUM ME DGEN (St Bicarbonate BICARB 2019 ed BICARBONATE [facility] 650 MG Oral ZIA: 12:00: Medi nils, Tablet [id number] 00 AM PC) SODIUM EDT BICARBONATE :[id number] Mirtazapine MIRTAZ 05/05/ TABLET 30 complet MIRT AZAPINE [facility] (St 7.5 MG Oral APINE: 2019 ed [facility] Tablet [id number] 12:00: Medical, MIRTAZAPINE 00 AM PC) :581177 EDT Labetalol LABETA 05/05/ TABLET 60 complet LABETA LOL [facility] (St hydrochlori LOL:89 2019 ed [facility] de 100 MG 6758 12:00: Medical, Oral Tablet 00 AM PC) LABETALOL:8 EDT 86230 Hydralazine HYDRAL 05/05/ TABLET 90 complet HYDR ALAZINE [facility] (St Hydrochlori AZINE: 2019 ed [facility] de 25 MG [id number] 12:00: Medical , Oral Tablet 00 AM PC) HYDRALAZINE EDT :560193 Furosemide FUROSE 05/05/ TABLET 30 complet FUROS EMIDE [facility] (St 20 MG Oral MIDE:3 2019 ed [facility] Tablet 09140 12:00: Medical, FUROSEMIDE: 00 AM PC) 328701 EDT BLOOD complet BLOOD [facility] ( St PRESSURE 2019 ed PRESSURE KIT [facility] KIT: 12:00: Medical, 00 AM PC) EDT Allopurinol ALLOPU 05/05/ TABLET 30 complet ALLO PURINOL [facility] (St ALLOPURINOL RINOL: 2019 ed [facility] :519 519 12:00: Medical, 00 AM PC) EDT Hydralazine HYDRAL 05/05/ TABLET 90 complet HYDR ALAZINE [facility] (St Hydrochlori AZINE: 2019 ed [facility] de 25 MG [id number] 12:00: Medical , Oral Tablet 00 AM PC) HYDRALAZINE EDT :211252 Furosemide FUROSE 05/05/ TABLET 30 complet FUROS EMIDE [facility] (St 20 MG Oral MIDE:3 2019 ed [facility] Tablet [id number] 12:00: Medical, FUROSEMIDE: 00 AM PC) 621405 EDT BLOOD complet BLOOD [facility] ( St PRESSURE 2019 ed PRESSURE KIT [facility] KIT: 12:00: Medical, 00 AM PC) EDT Hydralazine HYDRAL 05/05/ TABLET 90 complet HYDR ALAZINE [facility] (St Hydrochlori AZINE: 2019 ed [facility] de 25 MG [id number] 12:00: Medical , Oral Tablet 00 AM PC) HYDRALAZINE EDT :206956 Sodium SODIUM 05/05/ TABLET 360 complet SODIUM ME DGEN (St Bicarbonate BICARB 2019 ed BICARBONATE [facility] 650 MG Oral ZIA: 12:00: Medi nils, Tablet [id number] 00 AM PC) SODIUM EDT BICARBONATE :[id number] Allopurinol ALLOPU 05/05/ TABLET 30 complet ALLO PURINOL [facility] (St ALLOPURINOL RINOL: 2019 ed [facility] :519 519 12:00: Medical, 00 AM PC) EDT Mirtazapine MIRTAZ 31/ TABLET 30 complet MIRT AZAPINE [facility] (St 7.5 MG Oral APINE: 2019 ed [facility] Tablet [id number] 12:00: Medical, MIRTAZAPINE 00 AM PC) :004441 EDT BLOOD complet BLOOD MED[facility] ( St PRESSURE 2020 ed PRESSURE KIT [facility] KIT: 12:00: Medical, 00 AM PC) EDT Mirtazapine MIRTAZ 05/05/ TABLET 30 complet MIRT AZAPINE [facility] (St 7.5 MG Oral APINE: 2019 ed [facility] Tablet [id number] 12:00: Medical, MIRTAZAPINE 00 AM PC) :[id number] EDT Sodium SODIUM 05/05/ TABLET 360 complet SODIUM ME DGEN (St Bicarbonate BICARB 2019 ed BICARBONATE [facility] 650 MG Oral ZIA: 12:00: Medi nils, Tablet [id number] 00 AM PC) SODIUM EDT BICARBONATE :075071 Sodium SODIUM 31/ TABLET 360 complet SODIUM ME DGEN (St Bicarbonate BICARB 2019 ed BICARBONATE [facility] 650 MG Oral ZIA: 12:00: Medi nils, Tablet [id number] 00 AM PC) SODIUM EDT BICARBONATE :918619 Labetalol LABETA 05/05/ TABLET 60 complet LABETA LOL [facility] (St hydrochlori LOL:89 2019 ed [facility] de 100 MG 6758 12:00: Medical, Oral Tablet 00 AM PC) LABETALOL:8 EDT 30319 Mirtazapine MIRTAZ 05/05/ TABLET 30 complet MIRT AZAPINE [facility] (St 7.5 MG Oral APINE: 2019 ed [facility] Tablet [id number] 12:00: Medical, MIRTAZAPINE 00 AM PC) :[id number] EDT Labetalol LABETA 31/ TABLET 60 complet LABETA LOL [facility] (St hydrochlori LOL:89 2019 ed [facility] de 100 MG 6758 12:00: Medical, Oral Tablet 00 AM PC) LABETALOL:8 EDT 68919 Hydralazine HYDRAL 31/ TABLET 90 complet HYDR ALAZINE [facility] (St Hydrochlori AZINE: 2019 ed [facility] de 25 MG [id number] 12:00: Medical , Oral Tablet 00 AM PC) HYDRALAZINE EDT :392320 Furosemide FUROSE 05/05/ TABLET 30 complet FUROS EMIDE [facility] (St 20 MG Oral MIDE:3 2019 ed [facility] Tablet 16329 12:00: Medical, FUROSEMIDE: 00 AM PC) 248275 EDT BLOOD complet BLOOD MED[facility] ( St PRESSURE 2019 ed PRESSURE KIT [facility] KIT: 12:00: Medical, 00 AM PC) EDT Allopurinol ALLOPU 05/05/ TABLET 30 complet ALLO PURINOL [facility] (St ALLOPURINOL RINOL: 2019 ed [facility] :519 519 12:00: Medical, 00 AM PC) EDT Calcium CALCIU 05/03/ TABLET, 360 complet CALCIUM [facility] (St Carbonate 2019 CHEWABLE ed CARBONATE [facility] 500 MG CARBON 12:00: Medical, Chewable ATE:30 00 AM PC) Tablet 8907 EDT CALCIUM CARBONATE:3 17608 Calcium CALCIU 05/03/ TABLET, 360 complet CALCIUM [facility] (St Carbonate 2019 CHEWABLE ed CARBONATE [facility] 500 MG CARBON 12:00: Medical, Chewable ATE:30 00 AM PC) Tablet 8907 EDT CALCIUM CARBONATE:3 90136 Calcium CALCIU 05/03/ TABLET, 360 complet CALCIUM [facility] (St Carbonate 2019 CHEWABLE ed CARBONATE J [facility] 500 MG CARBON 12:00: Medical, Chewable ATE:30 00 AM PC) Tablet 8907 EDT CALCIUM CARBONATE:3 71372 Calcium CALCIU 05/03/ TABLET, 360 complet CALCIUM [facility] (St Carbonate 2019 CHEWABLE ed CARBONATE J [facility] 500 MG CARBON 12:00: Medical, Chewable ATE:30 00 AM PC) Tablet 8907 EDT CALCIUM CARBONATE:3 02922 Calcium CALCIU 05/03/ TABLET, 360 complet CALCIUM MED[facility] (St Carbonate 2019 CHEWABLE ed CARBONATE J [facility] 500 MG CARBON 12:00: Medical, Chewable ATE:30 00 AM PC) Tablet 8907 EDT CALCIUM CARBONATE:3 00752 Famotidine FAMOTI 04/26/ TABLET 90 complet FAMOT IDINE [facility] (St 40 MG Oral DINE:2 2019 ed [facility] Tablet 12061 12:00: Medical, FAMOTIDINE: 00 AM PC) [id number] EDT Famotidine FAMOTI 04/26/ TABLET 90 complet FAMOT IDINE [facility] (St 40 MG Oral DINE:2 2019 ed [facility] Tablet 46685 12:00: Medical, FAMOTIDINE: 00 AM PC) 450367 EDT Sodium SODIUM 15/ TABLET 360 complet SODIUM ME DGEN (St Bicarbonate BICARB 2019 ed BICARBONATE [facility] 650 MG Oral ZIA: 12:00: Medi nils, Tablet [id number] 00 AM PC) SODIUM EDT BICARBONATE :[id number] Labetalol LABETA 15/ TABLET 30 complet LABETA LOL [facility] (St hydrochlori LOL:89 2019 ed [place] de 100 MG 6758 12:00: Medical, Oral Tablet 00 AM PC) LABETALOL:8 EDT 33432 Allopurinol ALLOPU 04/19/ complet ALLOPU RINOL [facility] (St ALLOPURINOL RINOL: 2019 ed [facility] :519 519 12:00: Medical, 00 AM PC) EDT Furosemide FUROSE 04/19/ complet FUROSEM REHAN [facility] (St 40 MG Oral MIDE:3 2019 ed [facility] Tablet 44595 12:00: Medical, FUROSEMIDE: 00 AM PC) [id number] EDT Allopurinol ALLOPU 15/ complet ALLOPU RINOL [facility] (St ALLOPURINOL RINOL: 2019 ed [facility] :519 519 12:00: Medical, 00 AM PC) EDT Furosemide FUROSE 04/19/ complet FUROSEM REHAN [facility] (St 40 MG Oral MIDE:3 2019 ed [place] Tablet 54894 12:00: Medical, FUROSEMIDE: 00 AM PC) 923809 EDT Allopurinol ALLOPU 15/ complet ALLOPU RINOL [facility] (St ALLOPURINOL RINOL: 2019 ed [facility] :519 519 12:00: Medical, 00 AM PC) EDT Furosemide FUROSE 04/19/ complet FUROSEM REHAN [facility] (St 40 MG Oral MIDE:3 2019 ed [facility] Tablet 03089 12:00: Medical, FUROSEMIDE: 00 AM PC) [id number] EDT Sodium SODIUM 15/ TABLET 360 complet SODIUM ME DGEN (St Bicarbonate BICARB 2019 ed BICARBONATE [facility] 650 MG Oral ZIA: 12:00: Medi nils, Tablet [id number] 00 AM PC) SODIUM EDT BICARBONATE :[id number] Labetalol LABETA 15/ TABLET 30 complet LABETA LOL [facility] (St hydrochlori LOL:89 2019 ed [facility] de 100 MG 6758 12:00: Medical, Oral Tablet 00 AM PC) LABETALOL:8 EDT 17773 Labetalol LABETA /15/ TABLET 30 complet LABETA LOL [facility] (St hydrochlori LOL:89 2019 ed [facility] de 100 MG 6758 12:00: Medical, Oral Tablet 00 AM PC) LABETALOL:8 EDT 11043 Sodium SODIUM 15/ TABLET 360 complet SODIUM ME DGEN (St Bicarbonate BICARB 2019 ed BICARBONATE [facility] 650 MG Oral ZIA: 12:00: Medi nils, Tablet [id number] 00 AM PC) SODIUM EDT BICARBONATE :[id number] Tamsulosin TAMSUL 12/14/ CAPSULE 30 complet TAMS ULOSIN [facility] (St hydrochlori OSIN:8 2019 ed [facility] de 0.4 MG 69257 12:00: Medical , Oral 00 AM PC) Capsule EDT TAMSULOSIN: 195144 Furosemide FUROSE 12/14/ TABLET 30 complet FUROS EMIDE [facility] (St 20 MG Oral MIDE:3 2019 ed [facility] Tablet 69874 12:00: Medical, FUROSEMIDE: 00 AM PC) [id number] EDT Furosemide FUROSE 12/14/ TABLET 30 complet FUROS EMIDE [facility] (St 20 MG Oral MIDE:3 2019 ed [facility] Tablet 54894 12:00: Medical, FUROSEMIDE: 00 AM PC) 044084 EDT Tamsulosin TAMSUL 12/14/ CAPSULE 30 complet TAMS ULOSIN MED[facility] (St hydrochlori OSIN:8 2019 ed [facility] de 0.4 MG 82058 12:00: Medical , Oral 00 AM PC) Capsule EDT TAMSULOSIN: 437282 Furosemide FUROSE 12/14/ TABLET 30 complet FUROS EMIDE [facility] (St 20 MG Oral MIDE:3 2019 ed [facility] Tablet 73942 12:00: Medical, FUROSEMIDE: 00 AM PC) 261783 EDT Tamsulosin TAMSUL /11/ CAPSULE 30 complet TAMS ULOSIN [facility] (St hydrochlori OSIN:2019 ed [facility] de 0.4 MG 89853 12:00: Medical , Oral 00 AM PC) Capsule EDT TAMSULOSIN: 980942 Tamsulosin TAMSUL /11/ CAPSULE 30 complet TAMS ULOSIN MED[facility] (St hydrochlori OSIN:2019 ed [facility] de 0.4 MG 62776 12:00: Medical , Oral 00 AM PC) Capsule EDT TAMSULOSIN: [id number] Furosemide FUROSE 12/14/ TABLET 30 complet FUROS EMIDE MEDGEN (St 20 MG Oral MIDE:3 2019 ed Juan C's Tablet [id number] 12:00: Medical, FUROSEMIDE: 00 AM PC) [id number] EDT Tamsulosin TAMSUL 12/14/ CAPSULE 30 complet TAMS ULOSIN MEDGEN (St hydrochlori OSIN:8 2019 ed [place] C[place] 0.4 [place] [id number] 12:00: Medical , Oral 00 AM PC) Capsule EDT TAMSULOSIN: [id number] Furosemide FUROSE 12/14/ TABLET 30 complet FUROS EMIDE MEDGEN (St 20 MG Oral MIDE:3 2019 ed [facility] Tablet [id number] 12:00: Medical, FUROSEMIDE: 00 AM PC) [id number] EDT Tamsulosin TAMSUL 12/14/ CAPSULE 30 complet TAMS ULOSIN MEDGEN (St hydrochlori OSIN:2019 ed [facility] de 0.4 MG 12061 12:00: Medical , Oral 00 AM PC) Capsule EDT TAMSULOSIN: [id number] Tamsulosin TAMSUL 12/14/ CAPSULE 30 complet TAMS ULOSIN MEDGEN (St hydrochlori OSIN:2019 ed [facility] de 0.4 MG 42320 12:00: Medical , Oral 00 AM PC) Capsule EDT TAMSULOSIN: [id number] Tamsulosin TAMSUL 12/14/ CAPSULE 30 complet TAMS ULOSIN MEDGEN (St hydrochlori OSIN:2019 ed [facility] de 0.4 MG 72851 12:00: Medical , Oral 00 AM PC) Capsule EDT TAMSULOSIN: 336503 Furosemide FUROSE 12/14/ TABLET 30 complet FUROS EMIDE MEDGEN (St 20 MG Oral MIDE:3 2019 ed [facility] Tablet 91804 12:00: Medical, FUROSEMIDE: 00 AM PC) [id number] EDT Tamsulosin TAMSUL 12/14/ CAPSULE 30 complet TAMS ULOSIN MEDGEN (St hydrochlori OSIN:2019 ed [facility] de 0.4 MG 70507 12:00: Medical , Oral 00 AM PC) Capsule EDT TAMSULOSIN: 917461 Tamsulosin TAMSUL 12/14/ CAPSULE 30 complet TAMS ULOSIN MEDGEN (St hydrochlori OSIN:2019 ed [facility] de 0.4 MG 01334 12:00: Medical , Oral 00 AM PC) Capsule EDT TAMSULOSIN: 830609 Furosemide FUROSE 12/14/ TABLET 30 complet FUROS EMIDE MEDGEN (St 20 MG Oral MIDE:3 2019 ed [facility] Tablet 33738 12:00: Medical, FUROSEMIDE: 00 AM PC) [id number] EDT Tamsulosin TAMSUL 12/14/ CAPSULE 30 complet TAMS ULOSIN MEDGEN (St hydrochlori OSIN:8 2019 ed [facility] de 0.4 MG 30696 12:00: Medical , Oral 00 AM PC) Capsule EDT TAMSULOSIN: 764147 Hydroxyzine HYDROX 11/17/ complet HYDROX YZINE MEDGEN (St Hydrochlori YZINE: 2019 ed [facility] de 10 MG 668224 12:00: Medical , Oral Tablet 00 AM PC) HYDROXYZINE EST :[id number] Hydralazine HYDRAL 11/17/ TABLET 90 complet HYDR ALAZINE MEDGEN (St Hydrochlori AZINE: 2019 ed [facility] de 25 MG [id number] 12:00: Medical , Oral Tablet 00 AM PC) HYDRALAZINE EST :[id number] halobetasol HALOBE 11/17/ complet HALOBE TASOL MEDGEN (St propionate TASOL 2019 ed TOPICAL [facility] 0.0005 TOPICA 12:00: Medical, MG/MG L:9779 00 AM PC) Topical 78 EST Ointment HALOBETASOL TOPICAL:977 978 Amlodipine AMLODI 11/17/ complet AMLODIP INE MEDGEN (St 10 MG Oral PINE:3 2019 ed [facility] Tablet 99539 12:00: Medical, AMLODIPINE: 00 AM PC) [id number] EST atorvastati ATORVA 11/17/ complet ATORVA STATIN MEDGEN (St n 10 MG STATIN 2019 ed [facility] Oral Tablet :[id number] 12:00: Medi nils, ATORVASTATI 2 00 AM PC) N:895125 EST Aspirin 81 ASPIRI 11/17/ complet ASPIRIN MEDGEN (St MG Delayed N:3084 2019 ed [facility] Release 16 12:00: Medical, Oral Tablet 00 AM PC) ASPIRIN:308 EST 416 Tacrolimus TACROL 11/17/ complet TACROLI MUS MEDGEN (St 0.001 MG/MG IMUS 2019 ed TOPICAL [facility] Topical TOPICA 12:00: Medical, Ointment L:3142 00 AM PC) TACROLIMUS 66 EST TOPICAL:[phone] atorvastati ATORVA 11/17/ complet ATORVA STATIN MEDGEN (St n 10 MG STATIN 2019 ed [facility] Oral Tablet :16555 12:00: Medi nils, ATORVASTATI 2 00 AM PC) N:[id number] EST Aspirin 81 ASPIRI 11/17/ complet ASPIRIN MEDGEN (St MG Delayed N:3084 2019 ed [facility] Release 16 12:00: Medical, Oral Tablet 00 AM PC) ASPIRIN:308 EST 416 Hydralazine HYDRAL 11/17/ TABLET 90 complet HYDR ALAZINE MEDGEN (St Hydrochlori AZINE: 2019 ed [facility] de 25 MG [id number] 12:00: Medical , Oral Tablet 00 AM PC) HYDRALAZINE EST :[id number] Tacrolimus TACROL 11/17/ complet TACROLI MUS MEDGEN (St 0.001 MG/MG IMUS 2019 ed TOPICAL [facility] Topical TOPICA 12:00: Medical, Ointment L:3142 00 AM PC) TACROLIMUS 66 EST TOPICAL:[phone] atorvastati ATORVA 11/17/ complet ATORVA STATIN MEDGEN (St n 10 MG STATIN 2019 ed [facility] Oral Tablet :33981 12:00: [facility] nils, ATORVASTATI 2 00 AM PC) N:[id number] EST halobetasol HALOBE 11/17/ complet HALOBE TASOL MEDGEN (St propionate TASOL 2019 ed TOPICAL [facility]' s 0.0005 TOPICA 12:00: Medical, MG/MG L:9779 00 AM PC) Topical 78 EST Ointment HALOBETASOL TOPICAL:977 978 halobetasol HALOBE 11/17/ complet HALOBE TASOL MEDGEN (St propionate TASOL 2019 ed TOPICAL [facility]' s 0.0005 TOPICA 12:00: Medical, MG/MG L:9779 00 AM PC) Topical 78 EST Ointment HALOBETASOL TOPICAL:977 978 Tacrolimus TACROL 11/17/ complet TACROLI MUS MEDGEN (St 0.001 MG/MG IMUS 2019 ed TOPICAL [facility] Topical TOPICA 12:00: Medical, Ointment L:3142 00 AM PC) TACROLIMUS 66 EST TOPICAL:[phone] Aspirin 81 ASPIRI 11/17/ complet ASPIRIN MEDGEN (St MG Delayed N:3084 2019 ed [facility] Release 16 12:00: Medical, Oral Tablet 00 AM PC) ASPIRIN:308 EST 416 Labetalol LABETA 11/17/ TABLET 120 complet LABETA LOL MEDGEN (St hydrochlori LOL:89 2019 ed [facility] de 200 MG 6762 12:00: Medical, Oral Tablet 00 AM PC) LABETALOL:8 EST 98964 Amlodipine AMLODI 11/17/ complet AMLODIP INE MEDGEN (St 10 MG Oral PINE:3 2019 ed [facility] Tablet 23992 12:00: Medical, AMLODIPINE: 00 AM PC) [id number] EST Labetalol LABETA 11/17/ TABLET 120 complet LABETA LOL MEDGEN (St hydrochlori LOL:89 2019 ed [facility] de 200 MG 6762 12:00: Medical, Oral Tablet 00 AM PC) LABETALOL:8 EST 49221 Hydroxyzine HYDROX 11/17/ complet HYDROX YZINE MEDGEN (St Hydrochlori YZINE: 2019 ed [facility] de 10 MG [id number] 12:00: Medical , Oral Tablet 00 AM PC) HYDROXYZINE EST :999759 Hydralazine HYDRAL 11/17/ TABLET 90 complet HYDR ALAZINE MEDGEN (St Hydrochlori AZINE: 2019 ed [facility] de 25 MG [id number] 12:00: Medical , Oral Tablet 00 AM PC) HYDRALAZINE EST :[id number] halobetasol HALOBE 11/17/ complet HALOBE TASOL MEDGEN (St propionate TASOL 2019 ed TOPICAL [facility] 0.0005 TOPICA 12:00: Medical, MG/MG L:9779 00 AM PC) Topical 78 EST Ointment HALOBETASOL TOPICAL:977 978 atorvastati ATORVA 11/17/ complet ATORVA STATIN MEDGEN (St n 10 MG STATIN 2019 ed [facility] Oral Tablet :95132 12:00: Medi nils, ATORVASTATI 2 00 AM PC) N:[id number] EST Tacrolimus TACROL 11/17/ complet TACROLI MUS MEDGEN (St 0.001 MG/MG IMUS 2019 ed TOPICAL [facility] Topical TOPICA 12:00: Medical, Ointment L:3142 00 AM PC) TACROLIMUS 66 EST TOPICAL:[phone] Amlodipine AMLODI 11/17/ complet AMLODIP INE MEDGEN (St 10 MG Oral PINE:3 2019 ed [facility] Tablet 25072 12:00: Medical, AMLODIPINE: 00 AM PC) [id number] EST Hydroxyzine HYDROX 11/17/ complet HYDROX YZINE MEDGEN (St Hydrochlori YZINE: 2019 ed [facility] de 10 MG [id number] 12:00: Medical , Oral Tablet 00 AM PC) HYDROXYZINE EST :819192 Labetalol LABETA 11/17/ TABLET 120 complet LABETA LOL MEDGEN (St hydrochlori LOL:89 2019 ed [facility] de 200 MG 6762 12:00: Medical, Oral Tablet 00 AM PC) LABETALOL:8 EST 53087 Hydralazine HYDRAL 11/17/ TABLET 90 complet HYDR ALAZINE MEDGEN (St Hydrochlori AZINE: 2019 ed [facility] de 25 MG [id number] 12:00: Medical , Oral Tablet 00 AM PC) HYDRALAZINE EST :268524 Amlodipine AMLODI complet AMLODIP INE MEDGEN (St 10 MG Oral PINE:3 2019 ed [facility] Tablet 70557 12:00: Medical, AMLODIPINE: 00 AM PC) [id number] EST halobetasol HALOBE 11/17/ complet HALOBE TASOL MEDGEN (St propionate TASOL 2019 ed TOPICAL [facility] 0.0005 TOPICA 12:00: Medical, MG/MG L:9779 00 AM PC) Topical 78 EST Ointment HALOBETASOL TOPICAL:977 978 Aspirin 81 ASPIRI 11/17/ complet ASPIRIN MEDGEN (St MG Delayed N:3084 2019 ed [facility] Release 16 12:00: Medical, Oral Tablet 00 AM PC) ASPIRIN:308 EST 416 atorvastati ATORVA 11/17/ complet ATORVA STATIN MEDGEN (St n 10 MG STATIN 2019 ed [facility] Oral Tablet :73501 12:00: Medi nils, ATORVASTATI 2 00 AM PC) N:512261 EST Aspirin 81 ASPIRI 11/17/ complet ASPIRIN MEDGEN (St MG Delayed N:3084 2019 ed [facility] Release 16 12:00: Medical, Oral Tablet 00 AM PC) ASPIRIN:308 EST 416 Tacrolimus TACROL 11/17/ complet TACROLI MUS MEDGEN (St 0.001 MG/MG IMUS 2019 ed TOPICAL [facility] Topical TOPICA 12:00: Medical, Ointment L:3142 00 AM PC) TACROLIMUS 66 EST TOPICAL:314 266 Hydroxyzine HYDROX 02/12/ complet HYDROX YZINE MEDGEN (St Hydrochlori YZINE: 2019 ed [facility] de 10 MG [id number] 12:00: Medical , Oral Tablet 00 AM PC) HYDROXYZINE EST :049178 Labetalol LABETA 11/17/ TABLET 120 complet LABETA LOL MEDGEN (St hydrochlori LOL:89 2019 ed [facility] de 200 MG 6762 12:00: Medical, Oral Tablet 00 AM PC) LABETALOL:8 EST 04613 halobetasol HALOBE 11/17/ complet HALOBE TASOL MEDGEN (St propionate TASOL 2019 ed TOPICAL [facility] 0.0005 TOPICA 12:00: Medical, MG/MG L:9779 00 AM PC) Topical 78 EST Ointment HALOBETASOL TOPICAL:977 978 Hydralazine HYDRAL 11/17/ TABLET 90 complet HYDR ALAZINE MEDGEN (St Hydrochlori AZINE: 2019 ed [facility] de 25 MG [id number] 12:00: Medical , Oral Tablet 00 AM PC) HYDRALAZINE EST :769624 Aspirin 81 ASPIRI 11/17/ complet ASPIRIN MEDGEN (St MG Delayed N:3084 2019 ed [facility] Release 16 12:00: Medical, Oral Tablet 00 AM PC) ASPIRIN:308 EST 416 Labetalol LABETA 11/17/ TABLET 120 complet LABETA LOL MEDGEN (St hydrochlori LOL:89 2019 ed [facility] de 200 MG 6762 12:00: Medical, Oral Tablet 00 AM PC) LABETALOL:8 EST 22016 Tacrolimus TACROL 11/17/ complet TACROLI MUS MEDGEN (St 0.001 MG/MG IMUS 2019 ed TOPICAL [facility] Topical TOPICA 12:00: Medical, Ointment L:3142 00 AM PC) TACROLIMUS 66 EST TOPICAL:314 266 Tacrolimus TACROL 11/17/ complet TACROLI MUS MEDGEN (St 0.001 MG/MG IMUS 2019 ed TOPICAL [facility] Topical TOPICA 12:00: Medical, Ointment L:3142 00 AM PC) TACROLIMUS 66 EST TOPICAL:314 266 Hydroxyzine HYDROX 11/17/ complet HYDROX YZINE MEDGEN (St Hydrochlori YZINE: 2019 ed [facility] de 10 MG [id number] 12:00: Medical , Oral Tablet 00 AM PC) HYDROXYZINE EST :090125 Labetalol LABETA 11/17/ TABLET 120 complet LABETA LOL MEDGEN (St hydrochlori LOL:89 2019 ed [facility] de 200 MG 6762 12:00: Medical, Oral Tablet 00 AM PC) LABETALOL:8 EST 44306 Tacrolimus TACROL complet TACROLI MUS MEDGEN (St 0.001 MG/MG IMUS 2019 ed TOPICAL [facility] Topical TOPICA 12:00: Medical, Ointment L:3142 00 AM PC) TACROLIMUS 66 EST TOPICAL:314 266 halobetasol HALOBE complet HALOBE TASOL MEDGEN (St propionate TASOL 2019 ed TOPICAL [facility] 0.0005 TOPICA 12:00: Medical, MG/MG L:9779 00 AM PC) Topical 78 EST Ointment HALOBETASOL TOPICAL:977 978 atorvastati ATORVA complet ATORVA STATIN MEDGEN (St n 10 MG STATIN 2019 ed [facility] Oral Tablet :42842 12:00: Medi nils, ATORVASTATI 2 00 AM PC) N:[id number] EST Aspirin 81 ASPIRI complet ASPIRIN MEDGEN (St MG Delayed N:3084 2019 ed [facility] Release 16 12:00: Medical, Oral Tablet 00 AM PC) ASPIRIN:308 EST 416 Amlodipine AMLODI complet AMLODIP INE MEDGEN (St 10 MG Oral PINE:3 2019 ed [facility] Tablet 76529 12:00: Medical, AMLODIPINE: 00 AM PC) 065588 EST atorvastati ATORVA complet ATORVA STATIN MEDGEN (St n 10 MG STATIN 2019 ed [facility] Oral Tablet :51084 12:00: Medi nils, ATORVASTATI 2 00 AM PC) N:070930 EST Aspirin 81 ASPIRI complet ASPIRIN MEDGEN (St MG Delayed N:3084 2019 ed [facility] Release 16 12:00: Medical, Oral Tablet 00 AM PC) ASPIRIN:308 EST 416 Tacrolimus TACROL complet TACROLI MUS MEDGEN (St 0.001 MG/MG IMUS 2019 ed TOPICAL [facility] Topical TOPICA 12:00: Medical, Ointment L:3142 00 AM PC) TACROLIMUS 66 EST TOPICAL:314 266 atorvastati ATORVA complet ATORVA STATIN MEDGEN (St n 10 MG STATIN 2019 ed [facility] Oral Tablet :44875 12:00: Medi nils, ATORVASTATI 2 00 AM PC) N:[id number] EST Aspirin 81 ASPIRI 11/17/ complet ASPIRIN MEDGEN (St MG Delayed N:3084 2019 ed [facility] Release 16 12:00: Medical, Oral Tablet 00 AM PC) ASPIRIN:308 EST 416 Labetalol LABETA 11/17/ TABLET 120 complet LABETA LOL MEDGEN (St hydrochlori LOL:89 2019 ed [facility] de 200 MG 6762 12:00: Medical, Oral Tablet 00 AM PC) LABETALOL:8 EST 76056 Hydralazine HYDRAL 11/17/ TABLET 90 complet HYDR ALAZINE MEDGEN (St Hydrochlori AZINE: 2019 ed [facility] de 25 MG 175440 12:00: Medical , Oral Tablet 00 AM PC) HYDRALAZINE EST :820234 halobetasol HALOBE 11/17/ complet HALOBE TASOL MEDGEN (St propionate TASOL 2019 ed TOPICAL [facility] s 0.0005 TOPICA 12:00: Medical, MG/MG L:9779 00 AM PC) Topical 78 EST Ointment HALOBETASOL TOPICAL:977 978 Hydroxyzine HYDROX 11/17/ complet HYDROX YZINE MEDGEN (St Hydrochlori YZINE: 2019 ed [facility] de 10 MG 139551 12:00: Medical , Oral Tablet 00 AM PC) HYDROXYZINE EST :037589 Hydroxyzine HYDROX 11/17/ complet HYDROX YZINE MEDGEN (St Hydrochlori YZINE: 2019 ed [facility] de 10 MG [id number] 12:00: Medical , Oral Tablet 00 AM PC) HYDROXYZINE EST :323526 Aspirin 81 ASPIRI 11/17/ complet ASPIRIN MEDGEN (St MG Delayed N:3084 2019 ed [facility] Release 16 12:00: Medical, Oral Tablet 00 AM PC) ASPIRIN:308 EST 416 atorvastati ATORVA 11/17/ complet ATORVA STATIN MEDGEN (St n 10 MG STATIN 2019 ed [facility] Oral Tablet :87863 12:00: Medi nils, ATORVASTATI 2 00 AM PC) N:232298 EST halobetasol HALOBE 11/17/ complet HALOBE TASOL MEDGEN (St propionate TASOL 2019 ed TOPICAL [facility] s 0.0005 TOPICA 12:00: Medical, MG/MG L:9779 00 AM PC) Topical 78 EST Ointment HALOBETASOL TOPICAL:977 978 halobetasol HALOBE 11/17/ complet HALOBE TASOL MEDGEN (St propionate TASOL 2019 ed TOPICAL [facility] s 0.0005 TOPICA 12:00: Medical, MG/MG L:9779 00 AM PC) Topical 78 EST Ointment HALOBETASOL TOPICAL:977 978 Tacrolimus TACROL 11/17/ complet TACROLI MUS MEDGEN (St 0.001 MG/MG IMUS 2019 ed TOPICAL [facility] Topical TOPICA 12:00: Medical, Ointment L:3142 00 AM PC) TACROLIMUS 66 EST TOPICAL:314 266 Hydralazine HYDRAL 11/17/ TABLET 90 complet HYDR ALAZINE MEDGEN (St Hydrochlori AZINE: 2019 ed [facility] de 25 MG [id number] 12:00: Medical , Oral Tablet 00 AM PC) HYDRALAZINE EST :064497 Aspirin 81 ASPIRI complet ASPIRIN MEDGEN (St MG Delayed N:3084 2019 ed [facility] Release 16 12:00: Medical, Oral Tablet 00 AM PC) ASPIRIN:308 EST 416 atorvastati ATORVA 11/17/ complet ATORVA STATIN MEDGEN (St n 10 MG STATIN 2019 ed [facility] Oral Tablet :96255 12:00: Medi nils, ATORVASTATI 2 00 AM PC) N:[id number] EST Amlodipine AMLODI 11/17/ complet AMLODIP INE MEDGEN (St 10 MG Oral PINE:3 2019 ed [facility] Tablet 61482 12:00: Medical, AMLODIPINE: 00 AM PC) [id number] EST atorvastati ATORVA 11/17/ complet ATORVA STATIN MEDGEN (St n 10 MG STATIN 2019 ed [facility] Oral Tablet :36200 12:00: Medi nils, ATORVASTATI 2 00 AM PC) N:152221 EST Amlodipine AMLODI 11/17/ complet AMLODIP INE MEDGEN (St 10 MG Oral PINE:3 2019 ed [facility] Tablet 36226 12:00: Medical, AMLODIPINE: 00 AM PC) 558809 EST Tacrolimus TACROL 11/17/ complet TACROLI MUS MEDGEN (St 0.001 MG/MG IMUS 2019 ed TOPICAL [facility] s Topical TOPICA 12:00: Medical, Ointment L:3142 00 AM PC) TACROLIMUS 66 EST TOPICAL:314 266 halobetasol HALOBE 11/17/ complet HALOBE TASOL MEDGEN (St propionate TASOL 2019 ed TOPICAL [facility] s 0.0005 TOPICA 12:00: Medical, MG/MG L:9779 00 AM PC) Topical 78 EST Ointment HALOBETASOL TOPICAL:977 978 COLLAGENASE SANTYL 08/27/ OINTMENT 1 complet SA NTYL MEDGEN (St 0.25 UNT/MG :55253 2018 ed [facility] Topical 17 12:00: Medical, Ointment 00 AM PC) [Santyl] EST SANTYL:1149 617 COLLAGENASE SANTYL 08/27/ OINTMENT 1 complet SA NTYL MEDGEN (St 0.25 UNT/MG :32204 2018 ed [facility] Topical 17 12:00: Medical, Ointment 00 AM PC) [Santyl] EST SANTYL:1149 617 Labetalol LABETA 22/ TABLET 60 complet LABETA LOL MEDGEN (St hydrochlori LOL:89 2018 ed [facility] de 100 MG 6758 12:00: Medical, Oral Tablet 00 AM PC) LABETALOL:8 EST 01704 COLLAGENASE SANTYL 08/27/ OINTMENT 1 complet SA NTYL MEDGEN (St 0.25 UNT/MG :35834 2018 ed [facility] Topical 17 12:00: Medical, Ointment 00 AM PC) [Santyl] EST SANTYL:1149 617 Labetalol LABETA 22/ TABLET 60 complet LABETA LOL MEDGEN (St hydrochlori LOL:89 2018 ed [facility] de 100 MG 6758 12:00: Medical, Oral Tablet 00 AM PC) LABETALOL:8 EST 95138 COLLAGENASE SANTYL 08/27/ OINTMENT 1 complet SA NTYL MEDGEN (St 0.25 UNT/MG :62208 2018 ed [facility] Topical 17 12:00: Medical, Ointment 00 AM PC) [Santyl] EST SANTYL:1149 617 Labetalol LABETA /22/ TABLET 60 complet LABETA LOL MEDGEN (St hydrochlori LOL:89 2018 ed [facility] de 100 MG 6758 12:00: Medical, Oral Tablet 00 AM PC) LABETALOL:8 EST 54360 Labetalol LABETA 11/22/ TABLET 60 complet LABETA LOL MEDGEN (St hydrochlori LOL:89 2018 ed [facility] de 100 MG 6758 12:00: Medical, Oral Tablet 00 AM PC) LABETALOL:8 EST 08659 COLLAGENASE SANTYL 08/27/ OINTMENT 1 complet SA NTYL MEDGEN (St 0.25 UNT/MG :35784 2018 ed [facility] Topical 17 12:00: Medical, Ointment 00 AM PC) [Santyl] EST SANTYL:1149 617 Labetalol LABETA /22/ TABLET 60 complet LABETA LOL MEDGEN (St hydrochlori LOL:89 2018 ed [facility] de 100 MG 6758 12:00: Medical, Oral Tablet 00 AM PC) LABETALOL:8 EST 52698 COLLAGENASE SANTYL 08/27/ OINTMENT 1 complet SA NTYL MEDGEN (St 0.25 UNT/MG :78549 2018 ed [facility] Topical 17 12:00: Medical, Ointment 00 AM PC) [Santyl] EST SANTYL:1149 617 COLLAGENASE SANTYL 08/27/ OINTMENT 1 complet SA NTYL MEDGEN (St 0.25 UNT/MG :88850 2018 ed [facility] Topical 17 12:00: Medical, Ointment 00 AM PC) [Santyl] EST SANTYL:1149 617 Labetalol LABETA 08/27/ TABLET 60 complet LABETA LOL MEDGEN (St hydrochlori LOL:89 2018 ed [facility] de 100 MG 6758 12:00: Medical, Oral Tablet 00 AM PC) LABETALOL:8 EST 82859 COLLAGENASE SANTYL 08/27/ OINTMENT 1 complet SA NTYL MEDGEN (St 0.25 UNT/MG :33496 2018 ed [facility] Topical 17 12:00: Medical, Ointment 00 AM PC) [Santyl] EST SANTYL:1149 617 COLLAGENASE SANTYL 22/ OINTMENT 1 complet SA NTYL MEDGEN (St 0.25 UNT/MG :57538 2018 ed [facility] Topical 17 12:00: Medical, Ointment 00 AM PC) [Santyl] EST SANTYL:1149 617 Labetalol LABETA 11/22/ TABLET 60 complet LABETA LOL MEDGEN (St hydrochlori LOL:89 2018 ed [facility] de 100 MG 6758 12:00: Medical, Oral Tablet 00 AM PC) LABETALOL:8 EST 30556 COLLAGENASE SANTYL 08/27/ OINTMENT 1 complet SA NTYL MEDGEN (St 0.25 UNT/MG :54416 2018 ed [facility] Topical 17 12:00: Medical, Ointment 00 AM PC) [Santyl] EST SANTYL:1149 617 COLLAGENASE SANTYL 08/27/ OINTMENT 1 complet SA NTYL MEDGEN (St 0.25 UNT/MG :78526 2018 ed [facility] Topical 17 12:00: Medical, Ointment 00 AM PC) [Santyl] EST SANTYL:1149 617 Insurance Providers Payer name Policy type Policy ID Covered Covered alliance party's Policy P tomeka / Coverage alliance party ID relationship to Cantu Inf ormation type cantu HIP MEDICAID [id number] SP [id number] [facility] [id number] 1 [id number] MEDICAID [id number] 1 [id number] [place] [id number] SP [id number] [facility] [id number] PT [id number] ESSENTIAL 1 PLAN 1 MEDICAID [id number] SP [id number] SELF PAY SP INSURANCE Problems, Conditions, and Diagnoses Code Display Name Description Problem Type Effective Data Dates Source(s) L29.9 Pruritus, PRURITUS, Problem 05/31/2020 MEDGEN (St unspecified UNSPECIFIED 12:00:00 AM [facility], ) L29.9 Pruritus, PRURITUS, Problem 05/31/2020 MEDGEN (St unspecified UNSPECIFIED 12:00:00 AM [facility], ) F32.9 Major depressive MAJOR DEPRESSIVE Problem 05/05/2020 [place] DGEN (St disorder, single DISORDER, SINGLE 12:00:00 AM J [facility]n's episode, unspecified EPISODE, EDT [facility], PC) UNSPECIFIED F32.9 Major depressive MAJOR DEPRESSIVE Problem 05/05/2020 [place] DGEN (St disorder, single DISORDER, SINGLE 12:00:00 AM J ohn's episode, unspecified EPISODE, EDT Medi nils, PC) UNSPECIFIED F32.9 Major depressive MAJOR DEPRESSIVE Problem 05/05/2020 [place] DGEN (St disorder, single DISORDER, SINGLE 12:00:00 AM J ohn's episode, unspecified EPISODE, EDT Medi nils, PC) UNSPECIFIED F32.9 Major depressive MAJOR DEPRESSIVE Problem 05/05/2020 [place] DGEN (St disorder, single DISORDER, SINGLE 12:00:00 AM J ohn's episode, unspecified EPISODE, EDT Medi nils, PC) UNSPECIFIED K21.9 Gastro-esophageal GASTRO-ESOPHAGEAL Problem 04/26/2020 MEDGEN (St reflux disease REFLUX DISEASE 12:00:00 AM [facility] without esophagitis WITHOUT EDT Medic al, PC) ESOPHAGITIS K21.9 Gastro-esophageal GASTRO-ESOPHAGEAL Problem 04/26/2020 MEDGEN (St reflux disease REFLUX DISEASE 12:00:00 AM [facility] without esophagitis WITHOUT EDT Medic al, PC) ESOPHAGITIS K21.9 Gastro-esophageal GASTRO-ESOPHAGEAL Problem 04/26/2020 MEDGEN (St reflux disease REFLUX DISEASE 12:00:00 AM [facility] without esophagitis WITHOUT EDT Medic al, PC) ESOPHAGITIS K21.9 Gastro-esophageal GASTRO-ESOPHAGEAL Problem 04/26/2020 MEDGEN (St reflux disease REFLUX DISEASE 12:00:00 AM [facility] without esophagitis WITHOUT EDT Medic al, PC) ESOPHAGITIS K21.9 Gastro-esophageal GASTRO-ESOPHAGEAL Problem 04/26/2020 MEDGEN (St reflux disease REFLUX DISEASE 12:00:00 AM [facility] without esophagitis WITHOUT EDT Medic al, PC) ESOPHAGITIS K21.9 Gastro-esophageal GASTRO-ESOPHAGEAL Problem 04/26/2020 MEDGEN (St reflux disease REFLUX DISEASE 12:00:00 AM [facility] without esophagitis WITHOUT EDT Medic al, PC) ESOPHAGITIS C90.00 Multiple myeloma not MULTIPLE MYELOMA Problem 0 MEDGEN (St having achieved NOT HAVING 12:00:00 AM [facility] remission ACHIEVED REMISSION EDT Medica l, PC) E83.52 Hypercalcemia HYPERCALCEMIA Problem 04/19/2020 MEDGEN ( St 12:00:00 AM [facility] EDT Medical, PC) C90.00 Multiple myeloma not MULTIPLE MYELOMA Problem 0 MEDGEN (St having achieved NOT HAVING 12:00:00 AM [facility] remission ACHIEVED REMISSION EDT Medica l, PC) E83.52 Hypercalcemia HYPERCALCEMIA Problem 04/19/2020 MEDGEN ( St 12:00:00 AM [facility] EDT Medical, PC) C90.00 Multiple myeloma not MULTIPLE MYELOMA Problem 0 MEDGEN (St having achieved NOT HAVING 12:00:00 AM [facility] remission ACHIEVED REMISSION EDT Medica l, PC) E83.52 Hypercalcemia HYPERCALCEMIA Problem 04/19/2020 MEDGEN ( St 12:00:00 AM [facility] EDT Medical, PC) C90.00 Multiple myeloma not MULTIPLE MYELOMA Problem 0 MEDGEN (St having achieved NOT HAVING 12:00:00 AM [facility] remission ACHIEVED REMISSION EDT Medica l, PC) E83.52 Hypercalcemia HYPERCALCEMIA Problem 04/19/2020 MEDGEN ( St 12:00:00 AM [facility] EDT Medical, PC) C90.00 Multiple myeloma not MULTIPLE MYELOMA Problem 0 MEDGEN (St having achieved NOT HAVING 12:00:00 AM [facility] remission ACHIEVED REMISSION EDT Medica l, PC) E83.52 Hypercalcemia HYPERCALCEMIA Problem 04/19/2020 MEDGEN ( St 12:00:00 AM [facility] EDT Medical, PC) C90.00 Multiple myeloma not MULTIPLE MYELOMA Problem 0 MEDGEN (St having achieved NOT HAVING 12:00:00 AM [facility] remission ACHIEVED REMISSION EDT Medica l, PC) E83.52 Hypercalcemia HYPERCALCEMIA Problem 04/19/2020 MEDGEN ( St 12:00:00 AM [facility] EDT Medical, PC) C90.00 Multiple myeloma not MULTIPLE MYELOMA Problem 0 MEDGEN (St having achieved NOT HAVING 12:00:00 AM [facility] remission ACHIEVED REMISSION EDT Medica l, PC) E83.52 Hypercalcemia HYPERCALCEMIA Problem 04/19/2020 MEDGEN ( St 12:00:00 AM [facility] EDT Medical, PC) I50.32 Chronic diastolic CHRONIC DIASTOLIC Problem 03/24/2020 MEDGEN (St (congestive) heart (CONGESTIVE) HEART 12:00:00 AM [facility] failure FAILURE EDT Medical, PC) I50.32 Chronic diastolic CHRONIC DIASTOLIC Problem 03/24/2020 MEDGEN (St (congestive) heart (CONGESTIVE) HEART 12:00:00 AM [facility] failure FAILURE EDT Medical, PC) I50.32 Chronic diastolic CHRONIC DIASTOLIC Problem 03/24/2020 MEDGEN (St (congestive) heart (CONGESTIVE) HEART 12:00:00 AM [facility] failure FAILURE EDT Medical, ) I50.32 Chronic diastolic CHRONIC DIASTOLIC Problem 03/24/2020 MEDGEN (St (congestive) heart (CONGESTIVE) HEART 12:00:00 AM [facility] failure FAILURE EDT [facility], ) I50.32 Chronic diastolic CHRONIC DIASTOLIC Problem 03/24/2020 [facility] ([facility] (congestive[facility] heart (CONGESTIVE) HEART 12:00:00 AM Juan C's failure FAILURE EDT [facility], ) I50.32 Chronic diastolic CHRONIC DIASTOLIC Problem 03/24/2020 [facility] ([facility] (congest[facility] heart (CONGESTIVE) HEART 12:00:00 AM Juan C's failure FAILURE EDT [facility], ) I50.32 Chronic diastolic CHRONIC DIASTOLIC Problem 03/24/2020 [facility] ([facility] (congest[facility] heart (CONGESTIVE) HEART 12:00:00 AM Juan C's failure FAILURE EDT Medical, ) I50.32 Chronic diastolic CHRONIC DIASTOLIC Problem 03/24/2020 [facility] ([facility] (congest[facility] heart (CONGESTIVE) HEART 12:00:00 AM Juan C's failure FAILURE EDT [facility], ) I50.32 Chronic diastolic CHRONIC DIASTOLIC Problem 03/24/2020 [facility] ([facility] (congest[facility] heart (CONGESTIVE) HEART 12:00:00 AM Juan C's failure FAILURE EDT Medical, ) I50.32 Chronic diastolic CHRONIC DIASTOLIC Problem 03/24/2020 [facility] ([facility] (congest[facility] heart (CONGESTIVE) HEART 12:00:00 AM Juan C's failure FAILURE EDT Medical, ) R53.81 Other malaise OTHER MALAISE Problem 03/22/2020 [facility] ( St 12:00:00 AM Juan C's EDT [facility], ) R53.81 Other malaise OTHER MALAISE Problem 03/22/2020 [facility] ( St 12:00:00 AM Juan C's EDT [facility], ) R53.81 Other malaise OTHER MALAISE Problem 03/22/2020 MEDGEN ( St 12:00:00 AM Juan C's EDT [facility], ) R53.81 Other malaise OTHER MALAISE Problem 03/22/2020 MEDGEN ( St 12:00:00 AM [facility]'s T [facility], ) R53.81 Other malaise OTHER MALAISE Problem 03/22/2020 MEDGEN ( St 12:00:00 AM [facility] R53.81 Other malaise OTHER MALAISE Problem 03/22/2020 MEDGEN ( St 12:00:00 AM [facility]) R53.81 Other malaise OTHER MALAISE Problem 03/22/2020 MEDGEN ( St 12:00:00 AM [facility]) R53.81 Other malaise OTHER MALAISE Problem 03/22/2020 MEDGEN ( St 12:00:00 AM [facility]) R53.81 Other malaise OTHER MALAISE Problem 03/22/2020 MEDGEN ( St 12:00:00 AM [facility]) R53.81 Other malaise OTHER MALAISE Problem 03/22/2020 MEDGEN ( St 12:00:00 AM [facility]) R53.81 Other malaise OTHER MALAISE Problem 03/22/2020 MEDGEN ( St 12:00:00 AM [facility]) 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 Problem 12/15/2019 MEDGEN (St 12:00:00 AM [facility]) 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 09/22/2019 ME DGEN (St ulcer of unspecified CHRONIC ULCER OF 12:00:00 AM Juan C's heel and midfoot UNSPECIFIED HEEL EST [facility], ) with unspecified AND MIDFOOT WITH severity UNSPECIFIED SEVERITY E88.09 Other disorders of OTHER DISORDERS OF Problem 9 MEDGEN (St plasma-protein PLASMA-PROTEIN 12:00:00 AM Juan C' s metabolism, not METABOLISM, NOT EST [facility] nils, ) elsewhere classified ELSEWHERE CLASSIFIED D72.829 Elevated white blood ELEVATED WHITE Problem 09/22/2019 MEDGEN (St cell count, BLOOD CELL COUNT, 12:00:00 AM Juan C' s unspecified UNSPECIFIED [facility], ) D64.9 Anemia, unspecified ANEMIA, Problem 09/22/2019 MEDGE N (St UNSPECIFIED 12:00:00 AM [facility], ) R21 Rash and other RASH AND OTHER Problem 09/22/2019 MEDGEN (St nonspecific skin NONSPECIFIC SKIN 12:00:00 AM J ohn's eruption ERUPTION [facility], ) I11.9 Hypertensive heart HYPERTENSIVE HEART Problem 9 MEDGEN (St disease without DISEASE WITHOUT 12:00:00 AM Vincent n's heart failure HEART FAILURE [facility], ) 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 09/22/2019 ME DGEN (St ulcer of unspecified CHRONIC ULCER OF 12:00:00 AM Juan C's heel and midfoot UNSPECIFIED HEEL EST [facility], ) with unspecified AND MIDFOOT WITH severity UNSPECIFIED SEVERITY E88.09 Other disorders of OTHER DISORDERS OF Problem 9 MEDGEN (St plasma-protein PLASMA-PROTEIN 12:00:00 AM Juan C' s metabolism, not METABOLISM, NOT EST Medi nils, ) elsewhere classified ELSEWHERE CLASSIFIED D72.829 Elevated white blood ELEVATED WHITE Problem 09/22/2019 MEDGEN (St cell count, BLOOD CELL COUNT, 12:00:00 AM Juan C' s unspecified UNSPECIFIED [facility]) D64.9 Anemia, unspecified ANEMIA, Problem 09/22/2019 MEDGE N (St UNSPECIFIED 12:00:00 AM Juan C's [facility]) R21 Rash and other RASH AND OTHER Problem 09/22/2019 MEDGEN (St nonspecific skin NONSPECIFIC SKIN 12:00:00 AM J ohn's eruption ERUPTION [facility], PC) I11.9 Hypertensive heart HYPERTENSIVE HEART Problem 9 MEDGEN (St disease without DISEASE WITHOUT 12:00:00 AM Vincent n's heart failure HEART FAILURE [facility], [facility]) 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 09/22/2019 ME DGEN (St ulcer of unspecified CHRONIC ULCER OF 12:00:00 AM Juan C's heel and midfoot UNSPECIFIED HEEL EST Al dical, PC) with unspecified AND MIDFOOT WITH severity UNSPECIFIED SEVERITY E88.09 Other disorders of OTHER DISORDERS OF Problem 9 MEDGEN (St plasma-protein PLASMA-PROTEIN 12:00:00 AM Juan C' s metabolism, not METABOLISM, NOT EST [facility], ) elsewhere classified ELSEWHERE CLASSIFIED D72.829 Elevated white blood ELEVATED WHITE Problem 09/22/2019 MEDGEN (St cell count, BLOOD CELL COUNT, 12:00:00 AM Juan C' s unspecified UNSPECIFIED [facility]) D64.9 Anemia, unspecified ANEMIA, Problem 09/22/2019 MEDGE N (St UNSPECIFIED 12:00:00 AM Juan C's [facility], PC) R21 Rash and other RASH AND OTHER Problem 09/22/2019 MEDGEN (St nonspecific skin NONSPECIFIC SKIN 12:00:00 AM J ohn's eruption ERUPTION EST [facility], PC) I11.9 Hypertensive heart HYPERTENSIVE HEART Problem 9 MEDGEN (St disease without DISEASE WITHOUT 12:00:00 AM Vincent n's heart failure HEART FAILURE EST [facility], PC) 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 09/22/2019 ME DGEN (St ulcer of unspecified CHRONIC ULCER OF 12:00:00 AM Juan C's heel and midfoot UNSPECIFIED HEEL EST Al dical, PC) with unspecified AND MIDFOOT WITH severity UNSPECIFIED SEVERITY E88.09 Other disorders of OTHER DISORDERS OF Problem 9 MEDGEN (St plasma-protein PLASMA-PROTEIN 12:00:00 AM Juan C' s metabolism, not METABOLISM, NOT EST Medi nils, PC) elsewhere classified ELSEWHERE CLASSIFIED D72.829 Elevated white blood ELEVATED WHITE Problem 09/22/2019 MEDGEN (St cell count, BLOOD CELL COUNT, 12:00:00 AM Juan C' s unspecified UNSPECIFIED [facility]) D64.9 Anemia, unspecified ANEMIA, Problem 09/22/2019 MEDGE N (St UNSPECIFIED 12:00:00 AM Juan C's [facility], PC) R21 Rash and other RASH AND OTHER Problem 09/22/2019 MEDGEN (St nonspecific skin NONSPECIFIC SKIN 12:00:00 AM J ohn's eruption ERUPTION EST Medical, PC) I11.9 Hypertensive heart HYPERTENSIVE HEART Problem 9 MEDGEN (St disease without DISEASE WITHOUT 12:00:00 AM Vincent n's heart failure HEART FAILURE EST Medical, PC) 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 09/22/2019 ME DGEN (St ulcer of unspecified CHRONIC ULCER OF 12:00:00 AM Juan C's heel and midfoot UNSPECIFIED HEEL EST [facility], ) with unspecified AND MIDFOOT WITH severity UNSPECIFIED SEVERITY E88.09 Other disorders of OTHER DISORDERS OF Problem 9 MEDGEN (St plasma-protein PLASMA-PROTEIN 12:00:00 AM Juan C' s metabolism, not METABOLISM, NOT EST Medi nils, PC) elsewhere classified ELSEWHERE CLASSIFIED D72.829 Elevated white blood ELEVATED WHITE Problem 09/22/2019 MEDGEN (St cell count, BLOOD CELL COUNT, 12:00:00 AM Juan C' s unspecified UNSPECIFIED [facility], [facility]) D64.9 Anemia, unspecified ANEMIA, Problem 09/22/2019 MEDGE N (St UNSPECIFIED 12:00:00 AM Juan C's [facility], PC) R21 Rash and other RASH AND OTHER Problem 09/22/2019 MEDGEN (St nonspecific skin NONSPECIFIC SKIN 12:00:00 AM J ohn's eruption ERUPTION EST Medical, PC) I11.9 Hypertensive heart HYPERTENSIVE HEART Problem 9 MEDGEN (St disease without DISEASE WITHOUT 12:00:00 AM Vincent n's heart failure HEART FAILURE EST Medical, PC) 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 09/22/2019 ME DGEN (St ulcer of unspecified CHRONIC ULCER OF 12:00:00 AM Juan C's heel and midfoot UNSPECIFIED HEEL EST Al dical, PC) with unspecified AND MIDFOOT WITH severity UNSPECIFIED SEVERITY E88.09 Other disorders of OTHER DISORDERS OF Problem 9 MEDGEN (St plasma-protein PLASMA-PROTEIN 12:00:00 AM Juan C' s metabolism, not METABOLISM, NOT EST Medi nils, PC) elsewhere classified ELSEWHERE CLASSIFIED D72.829 Elevated white blood ELEVATED WHITE Problem 09/22/2019 MEDGEN (St cell count, BLOOD CELL COUNT, 12:00:00 AM Juan C' s unspecified UNSPECIFIED EST [facility], PC) D64.9 Anemia, unspecified ANEMIA, Problem 09/22/2019 MEDGE N (St UNSPECIFIED 12:00:00 AM Juan C's EST Medical, PC) R21 Rash and other RASH AND OTHER Problem 09/22/2019 MEDGEN (St nonspecific skin NONSPECIFIC SKIN 12:00:00 AM J ohn's eruption ERUPTION EST Medical, PC) I11.9 Hypertensive heart HYPERTENSIVE HEART Problem 9 MEDGEN (St disease without DISEASE WITHOUT 12:00:00 AM Vincent n's heart failure HEART FAILURE EST Medical, PC) 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 09/22/2019 ME DGEN (St ulcer of unspecified CHRONIC ULCER OF 12:00:00 AM Juan C's heel and midfoot UNSPECIFIED HEEL EST Al dical, PC) with unspecified AND MIDFOOT WITH severity UNSPECIFIED SEVERITY E88.09 Other disorders of OTHER DISORDERS OF Problem 9 MEDGEN (St plasma-protein PLASMA-PROTEIN 12:00:00 AM Juan C' s metabolism, not METABOLISM, NOT EST Medi nils, PC) elsewhere classified ELSEWHERE CLASSIFIED D72.829 Elevated white blood ELEVATED WHITE Problem 09/22/2019 MEDGEN (St cell count, BLOOD CELL COUNT, 12:00:00 AM Juan C' s unspecified UNSPECIFIED EST [facility], PC) D64.9 Anemia, unspecified ANEMIA, Problem 09/22/2019 MEDGE N (St UNSPECIFIED 12:00:00 AM Juan C's EST Medical, PC) R21 Rash and other RASH AND OTHER Problem 09/22/2019 MEDGEN (St nonspecific skin NONSPECIFIC SKIN 12:00:00 AM J ohn's eruption ERUPTION EST Medical, PC) I11.9 Hypertensive heart HYPERTENSIVE HEART Problem 9 MEDGEN (St disease without DISEASE WITHOUT 12:00:00 AM Vincent n's heart failure HEART FAILURE EST Medical, ) 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 09/22/2019 ME DGEN (St ulcer of unspecified CHRONIC ULCER OF 12:00:00 AM Juan C's heel and midfoot UNSPECIFIED HEEL EST Al [facility], ) with unspecified AND MIDFOOT WITH severity UNSPECIFIED SEVERITY E88.09 Other disorders of OTHER DISORDERS OF Problem 9 MEDGEN (St plasma-protein PLASMA-PROTEIN 12:00:00 AM Juan C' s metabolism, not METABOLISM, NOT EST Medi nils, PC) elsewhere classified ELSEWHERE CLASSIFIED D72.829 Elevated white blood ELEVATED WHITE Problem 09/22/2019 MEDGEN (St cell count, BLOOD CELL COUNT, 12:00:00 AM Juan C' s unspecified UNSPECIFIED [facility], PC) D64.9 Anemia, unspecified ANEMIA, Problem 09/22/2019 MEDGE N (St UNSPECIFIED 12:00:00 AM Juan C's [facility] Medical, ) R21 Rash and other RASH AND OTHER Problem 09/22/2019 MEDGEN (St nonspecific skin NONSPECIFIC SKIN 12:00:00 AM J ohn's eruption ERUPTION EST Medical, ) I11.9 Hypertensive heart HYPERTENSIVE HEART Problem 9 MEDGEN (St disease without DISEASE WITHOUT 12:00:00 AM Vincent n's heart failure HEART FAILURE EST Medical, PC) 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 09/22/2019 ME DGEN (St ulcer of unspecified CHRONIC ULCER OF 12:00:00 AM Juan C's heel and midfoot UNSPECIFIED HEEL EST Al [facility], ) with unspecified AND MIDFOOT WITH severity UNSPECIFIED SEVERITY E88.09 Other disorders of OTHER DISORDERS OF Problem 9 MEDGEN (St plasma-protein PLASMA-PROTEIN 12:00:00 AM Juan C' s metabolism, not METABOLISM, NOT EST Medi nils, PC) elsewhere classified ELSEWHERE CLASSIFIED D72.829 Elevated white blood ELEVATED WHITE Problem 09/22/2019 MEDGEN (St cell count, BLOOD CELL COUNT, 12:00:00 AM Juan C' s unspecified UNSPECIFIED EST [facility], PC) D64.9 Anemia, unspecified ANEMIA, Problem 09/22/2019 MEDGE N (St UNSPECIFIED 12:00:00 AM Juan C's EST Medical, PC) R21 Rash and other RASH AND OTHER Problem 09/22/2019 MEDGEN (St nonspecific skin NONSPECIFIC SKIN 12:00:00 AM J ohn's eruption ERUPTION EST Medical, PC) I11.9 Hypertensive heart HYPERTENSIVE HEART Problem 9 MEDGEN (St disease without DISEASE WITHOUT 12:00:00 AM Vincent n's heart failure HEART FAILURE EST Medical, PC) 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 09/22/2019 ME DGEN (St ulcer of unspecified CHRONIC ULCER OF 12:00:00 AM Juan C's heel and midfoot UNSPECIFIED HEEL EST Al [facility], ) with unspecified AND MIDFOOT WITH severity UNSPECIFIED SEVERITY E88.09 Other disorders of OTHER DISORDERS OF Problem 9 MEDGEN (St plasma-protein PLASMA-PROTEIN 12:00:00 AM Juan C' s metabolism, not METABOLISM, NOT EST Medi nils, PC) elsewhere classified ELSEWHERE CLASSIFIED D72.829 Elevated white blood ELEVATED WHITE Problem 09/22/2019 MEDGEN (St cell count, BLOOD CELL COUNT, 12:00:00 AM Juan C' s unspecified UNSPECIFIED EST Medical, ) D64.9 Anemia, unspecified ANEMIA, Problem 09/22/2019 MEDGE N (St UNSPECIFIED 12:00:00 AM Juan C's [facility] Medical, ) R21 Rash and other RASH AND OTHER Problem 09/22/2019 MEDGEN (St nonspecific skin NONSPECIFIC SKIN 12:00:00 AM J ohn's eruption ERUPTION EST Medical, PC) I11.9 Hypertensive heart HYPERTENSIVE HEART Problem 9 MEDGEN (St disease without DISEASE WITHOUT 12:00:00 AM Vincent n's heart failure HEART FAILURE EST Medical, PC) 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 09/22/2019 ME DGEN (St ulcer of unspecified CHRONIC ULCER OF 12:00:00 AM Juan C's heel and midfoot UNSPECIFIED HEEL EST Al [facility], ) with unspecified AND MIDFOOT WITH severity UNSPECIFIED SEVERITY E88.09 Other disorders of OTHER DISORDERS OF Problem 9 MEDGEN (St plasma-protein PLASMA-PROTEIN 12:00:00 AM Juan C' s metabolism, not METABOLISM, NOT EST Medi nils, PC) elsewhere classified ELSEWHERE CLASSIFIED D72.829 Elevated white blood ELEVATED WHITE Problem 09/22/2019 MEDGEN (St cell count, BLOOD CELL COUNT, 12:00:00 AM Juan C' s unspecified UNSPECIFIED EST Medical, PC) D64.9 Anemia, unspecified ANEMIA, Problem 09/22/2019 MEDGE N (St UNSPECIFIED 12:00:00 AM Juan C's [facility], PC) R21 Rash and other RASH AND OTHER Problem 09/22/2019 MEDGEN (St nonspecific skin NONSPECIFIC SKIN 12:00:00 AM J ohn's eruption ERUPTION EST Medical, PC) I11.9 Hypertensive heart HYPERTENSIVE HEART Problem 9 MEDGEN (St disease without DISEASE WITHOUT 12:00:00 AM Vincent n's heart failure HEART FAILURE EST Medical, PC) L89.629 Pressure ulcer of PRESSURE ULCER OF Problem 09/01/2019 MEDGEN (St left heel, LEFT HEEL, 12:00:00 AM Juan C's unspecified stage UNSPECIFIED STAGE EST Medical, PC) E78.5 Hyperlipidemia, HYPERLIPIDEMIA, Problem 09/01/2019 MEDG EN (St unspecified UNSPECIFIED 12:00:00 AM Juan C's [facility], PC) L53.9 Erythematous ERYTHEMATOUS Problem 09/01/2019 MEDGEN (St condition, CONDITION, 12:00:00 AM Juan C's unspecified UNSPECIFIED EST Medical, PC) N18.9 Chronic kidney CHRONIC KIDNEY Problem 09/01/2019 MEDGEN (St disease, unspecified DISEASE, 12:00:00 AM Vincent n's UNSPECIFIED EST Medical, PC) I16.9 Hypertensive crisis, HYPERTENSIVE Problem 09/01/2019 ME DGEN (St unspecified CRISIS, 12:00:00 AM Juan C's UNSPECIFIED EST Medical, PC) L89.629 Pressure ulcer of PRESSURE ULCER OF Problem 09/01/2019 MEDGEN (St left heel, LEFT HEEL, 12:00:00 AM Juan C's unspecified stage UNSPECIFIED STAGE EST Medical, PC) E78.5 Hyperlipidemia, HYPERLIPIDEMIA, Problem 09/01/2019 MEDG EN (St unspecified UNSPECIFIED 12:00:00 AM Juan C's [facility] Medical, PC) L53.9 Erythematous ERYTHEMATOUS Problem 09/01/2019 MEDGEN (St condition, CONDITION, 12:00:00 AM Juan C's unspecified UNSPECIFIED EST Medical, PC) N18.9 Chronic kidney CHRONIC KIDNEY Problem 09/01/2019 MEDGEN (St disease, unspecified DISEASE, 12:00:00 AM Vincent n's UNSPECIFIED EST Medical, PC) I16.9 Hypertensive crisis, HYPERTENSIVE Problem 09/01/2019 ME DGEN (St unspecified CRISIS, 12:00:00 AM Juan C's UNSPECIFIED EST Medical, PC) L89.629 Pressure ulcer of PRESSURE ULCER OF Problem 09/01/2019 MEDGEN (St left heel, LEFT HEEL, 12:00:00 AM Juan C's unspecified stage UNSPECIFIED STAGE EST Medical, PC) E78.5 Hyperlipidemia, HYPERLIPIDEMIA, Problem 09/01/2019 MEDG EN (St unspecified UNSPECIFIED 12:00:00 AM Juan C's EST Medical, PC) L53.9 Erythematous ERYTHEMATOUS Problem 09/01/2019 MEDGEN (St condition, CONDITION, 12:00:00 AM Juan C's unspecified UNSPECIFIED EST Medical, PC) N18.9 Chronic kidney CHRONIC KIDNEY Problem 09/01/2019 MEDGEN (St disease, unspecified DISEASE, 12:00:00 AM Vincent n's UNSPECIFIED EST Medical, PC) I16.9 Hypertensive crisis, HYPERTENSIVE Problem 09/01/2019 ME DGEN (St unspecified CRISIS, 12:00:00 AM Juan C's UNSPECIFIED EST Medical, PC) L89.629 Pressure ulcer of PRESSURE ULCER OF Problem 09/01/2019 MEDGEN (St left heel, LEFT HEEL, 12:00:00 AM Juan C's unspecified stage UNSPECIFIED STAGE EST Medical, PC) E78.5 Hyperlipidemia, HYPERLIPIDEMIA, Problem 09/01/2019 MEDG EN (St unspecified UNSPECIFIED 12:00:00 AM Juan C's EST Medical, PC) L53.9 Erythematous ERYTHEMATOUS Problem 09/01/2019 MEDGEN (St condition, CONDITION, 12:00:00 AM Juan C's unspecified UNSPECIFIED EST Medical, PC) N18.9 Chronic kidney CHRONIC KIDNEY Problem 09/01/2019 MEDGEN (St disease, unspecified DISEASE, 12:00:00 AM Vincent n's UNSPECIFIED EST Medical, PC) I16.9 Hypertensive crisis, HYPERTENSIVE Problem 09/01/2019 ME DGEN (St unspecified CRISIS, 12:00:00 AM Juan C's UNSPECIFIED EST Medical, PC) L89.629 Pressure ulcer of PRESSURE ULCER OF Problem 09/01/2019 MEDGEN (St left heel, LEFT HEEL, 12:00:00 AM Juan C's unspecified stage UNSPECIFIED STAGE EST Medical, PC) E78.5 Hyperlipidemia, HYPERLIPIDEMIA, Problem 09/01/2019 MEDG EN (St unspecified UNSPECIFIED 12:00:00 AM Juan C's EST Medical, PC) L53.9 Erythematous ERYTHEMATOUS Problem 09/01/2019 MEDGEN (St condition, CONDITION, 12:00:00 AM Juan C's unspecified UNSPECIFIED EST Medical, PC) N18.9 Chronic kidney CHRONIC KIDNEY Problem 09/01/2019 MEDGEN (St disease, unspecified DISEASE, 12:00:00 AM Vincent n's UNSPECIFIED EST Medical, PC) I16.9 Hypertensive crisis, HYPERTENSIVE Problem 09/01/2019 ME DGEN (St unspecified CRISIS, 12:00:00 AM Juan C's UNSPECIFIED EST Medical, PC) L89.629 Pressure ulcer of PRESSURE ULCER OF Problem 09/01/2019 MEDGEN (St left heel, LEFT HEEL, 12:00:00 AM Juan C's unspecified stage UNSPECIFIED STAGE EST Medical, PC) E78.5 Hyperlipidemia, HYPERLIPIDEMIA, Problem 09/01/2019 MEDG EN (St unspecified UNSPECIFIED 12:00:00 AM Juan C's [facility], PC) L53.9 Erythematous ERYTHEMATOUS Problem 09/01/2019 MEDGEN (St condition, CONDITION, 12:00:00 AM Juan C's unspecified UNSPECIFIED EST Medical, PC) N18.9 Chronic kidney CHRONIC KIDNEY Problem 09/01/2019 MEDGEN (St disease, unspecified DISEASE, 12:00:00 AM Vincent n's UNSPECIFIED EST Medical, PC) I16.9 Hypertensive crisis, HYPERTENSIVE Problem 09/01/2019 ME DGEN (St unspecified CRISIS, 12:00:00 AM Juan C's UNSPECIFIED EST Medical, PC) L89.629 Pressure ulcer of PRESSURE ULCER OF Problem 09/01/2019 MEDGEN (St left heel, LEFT HEEL, 12:00:00 AM Juan C's unspecified stage UNSPECIFIED STAGE EST Medical, PC) E78.5 Hyperlipidemia, HYPERLIPIDEMIA, Problem 09/01/2019 MEDG EN (St unspecified UNSPECIFIED 12:00:00 AM Juan C's EST Medical, PC) L53.9 Erythematous ERYTHEMATOUS Problem 09/01/2019 MEDGEN (St condition, CONDITION, 12:00:00 AM Juan C's unspecified UNSPECIFIED EST Medical, PC) N18.9 Chronic kidney CHRONIC KIDNEY Problem 09/01/2019 MEDGEN (St disease, unspecified DISEASE, 12:00:00 AM Vincent n's UNSPECIFIED EST Medical, PC) I16.9 Hypertensive crisis, HYPERTENSIVE Problem 09/01/2019 ME DGEN (St unspecified CRISIS, 12:00:00 AM Juan C's UNSPECIFIED EST Medical, PC) L89.629 Pressure ulcer of PRESSURE ULCER OF Problem 09/01/2019 MEDGEN (St left heel, LEFT HEEL, 12:00:00 AM Juan C's unspecified stage UNSPECIFIED STAGE EST Medical, PC) E78.5 Hyperlipidemia, HYPERLIPIDEMIA, Problem 09/01/2019 MEDG EN (St unspecified UNSPECIFIED 12:00:00 AM Juan C's EST Medical, PC) L53.9 Erythematous ERYTHEMATOUS Problem 09/01/2019 MEDGEN (St condition, CONDITION, 12:00:00 AM Juan C's unspecified UNSPECIFIED EST Medical, PC) N18.9 Chronic kidney CHRONIC KIDNEY Problem 09/01/2019 MEDGEN (St disease, unspecified DISEASE, 12:00:00 AM Vincent n's UNSPECIFIED EST Medical, PC) I16.9 Hypertensive crisis, HYPERTENSIVE Problem 09/01/2019 ME DGEN (St unspecified CRISIS, 12:00:00 AM Juan C's UNSPECIFIED EST Medical, PC) L89.629 Pressure ulcer of PRESSURE ULCER OF Problem 09/01/2019 MEDGEN (St left heel, LEFT HEEL, 12:00:00 AM Juan C's unspecified stage UNSPECIFIED STAGE EST Medical, PC) E78.5 Hyperlipidemia, HYPERLIPIDEMIA, Problem 09/01/2019 MEDG EN (St unspecified UNSPECIFIED 12:00:00 AM Juan C's EST Medical, PC) L53.9 Erythematous ERYTHEMATOUS Problem 09/01/2019 MEDGEN (St condition, CONDITION, 12:00:00 AM Juan C's unspecified UNSPECIFIED EST Medical, PC) N18.9 Chronic kidney CHRONIC KIDNEY Problem 09/01/2019 MEDGEN (St disease, unspecified DISEASE, 12:00:00 AM Vincent n's UNSPECIFIED EST Medical, PC) I16.9 Hypertensive crisis, HYPERTENSIVE Problem 09/01/2019 ME DGEN (St unspecified CRISIS, 12:00:00 AM Juan C's UNSPECIFIED EST Medical, PC) L89.629 Pressure ulcer of PRESSURE ULCER OF Problem 09/01/2019 MEDGEN (St left heel, LEFT HEEL, 12:00:00 AM Juan C's unspecified stage UNSPECIFIED STAGE EST Medical, PC) E78.5 Hyperlipidemia, HYPERLIPIDEMIA, Problem 09/01/2019 MEDG EN (St unspecified UNSPECIFIED 12:00:00 AM Juan C's EST Medical, PC) L53.9 Erythematous ERYTHEMATOUS Problem 09/01/2019 MEDGEN (St condition, CONDITION, 12:00:00 AM Juan C's unspecified UNSPECIFIED EST Medical, PC) N18.9 Chronic kidney CHRONIC KIDNEY Problem 09/01/2019 MEDGEN (St disease, unspecified DISEASE, 12:00:00 AM Vincent n's UNSPECIFIED EST Medical, PC) I16.9 Hypertensive crisis, HYPERTENSIVE Problem 09/01/2019 ME DGEN (St unspecified CRISIS, 12:00:00 AM Juan C's UNSPECIFIED EST Medical, PC) L89.629 Pressure ulcer of PRESSURE ULCER OF Problem 09/01/2019 MEDGEN (St left heel, LEFT HEEL, 12:00:00 AM Juan C's unspecified stage UNSPECIFIED STAGE EST Medical, PC) E78.5 Hyperlipidemia, HYPERLIPIDEMIA, Problem 09/01/2019 MEDG EN (St unspecified UNSPECIFIED 12:00:00 AM Juan C's EST Medical, PC) L53.9 Erythematous ERYTHEMATOUS Problem 09/01/2019 MEDGEN (St condition, CONDITION, 12:00:00 AM Juan C's unspecified UNSPECIFIED EST Medical, PC) N18.9 Chronic kidney CHRONIC KIDNEY Problem 09/01/2019 MEDGEN (St disease, unspecified DISEASE, 12:00:00 AM Vincent n's UNSPECIFIED EST Medical, PC) I16.9 Hypertensive crisis, HYPERTENSIVE Problem 09/01/2019 ME DGEN (St unspecified CRISIS, 12:00:00 AM Juan C's UNSPECIFIED EST Medical, PC) 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 08/27/2019 ME DGEN (St ulcer of other part CHRONIC ULCER OF 12:00:00 A M Juan C's of left foot with OTHER PART OF LEFT EST Medical, PC) other specified FOOT WITH OTHER severity SPECIFIED SEVERITY I73.9 Peripheral vascular PERIPHERAL Problem 08/27/2019 MEDGE N (St disease, unspecified VASCULAR DISEASE, 12:00:00 AM Juan C's UNSPECIFIED EST Medical, PC) I10 Essential (primary) ESSENTIAL Problem 08/27/2019 MEDGE N (St hypertension (PRIMARY) 12:00:00 AM Juan C's HYPERTENSION EST Medical, PC) 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 08/27/2019 ME DGEN (St ulcer of other part CHRONIC ULCER OF 12:00:00 A M Juan C's of left foot with OTHER PART OF LEFT EST Medical, PC) other specified FOOT WITH OTHER severity SPECIFIED SEVERITY I73.9 Peripheral vascular PERIPHERAL Problem 08/27/2019 MEDGE N (St disease, unspecified VASCULAR DISEASE, 12:00:00 AM Juan C's UNSPECIFIED EST Medical, PC) I10 Essential (primary) ESSENTIAL Problem 08/27/2019 MEDGE N (St hypertension (PRIMARY) 12:00:00 AM Juan C's HYPERTENSION EST Medical, PC) 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 08/27/2019 ME DGEN (St ulcer of other part CHRONIC ULCER OF 12:00:00 A M Juan C's of left foot with OTHER PART OF LEFT EST Medical, PC) other specified FOOT WITH OTHER severity SPECIFIED SEVERITY I73.9 Peripheral vascular PERIPHERAL Problem 08/27/2019 MEDGE N (St disease, unspecified VASCULAR DISEASE, 12:00:00 AM Juan C's UNSPECIFIED EST Medical, PC) I10 Essential (primary) ESSENTIAL Problem 08/27/2019 MEDGE N (St hypertension (PRIMARY) 12:00:00 AM Juan C's HYPERTENSION EST Medical, PC) 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 08/27/2019 ME DGEN (St ulcer of other part CHRONIC ULCER OF 12:00:00 A M Juan C's of left foot with OTHER PART OF LEFT [facility]) other specified FOOT WITH OTHER severity SPECIFIED SEVERITY I73.9 Peripheral vascular PERIPHERAL Problem 08/27/2019 MEDGE N (St disease, unspecified VASCULAR DISEASE, 12:00:00 AM Juan C's UNSPECIFIED [facility], [facility]) I10 Essential (primary) ESSENTIAL Problem 08/27/2019 MEDGE N (St hypertension (PRIMARY) 12:00:00 AM [facility] C[facility] HYPERTENSION [facility], [facility]) 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 08/27/2019 ME DGEN (St ulcer of other part CHRONIC ULCER OF 12:00:00 A M Juan C's of left foot with OTHER PART OF LEFT [facility], [facility]) other specified FOOT WITH OTHER severity SPECIFIED SEVERITY I73.9 Peripheral vascular PERIPHERAL Problem 08/27/2019 MEDGE N (St disease, unspecified VASCULAR DISEASE, 12:00:00 AM [facility] UNSPECIFIED [facility], [facility]) I10 Essential (primary) ESSENTIAL Problem 08/27/2019 MEDGE N (St hypertension (PRIMARY) 12:00:00 AM [facility] HYPERTENSION [facility], [facility]) 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 08/27/2019 ME DGEN (St ulcer of other part CHRONIC ULCER OF 12:00:00 A M Juan C's of left foot with OTHER PART OF LEFT [facility]) other specified FOOT WITH OTHER severity SPECIFIED SEVERITY I73.9 Peripheral vascular PERIPHERAL Problem 08/27/2019 MEDGE N (St disease, unspecified VASCULAR DISEASE, 12:00:00 AM [facility] UNSPECIFIED [facility]) I10 Essential (primary) ESSENTIAL Problem 08/27/2019 MEDGE N (St hypertension (PRIMARY) 12:00:00 AM [facility] HYPERTENSION [facility], [facility]) 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 08/27/2019 ME DGEN (St ulcer of other part CHRONIC ULCER OF 12:00:00 A M Juan C's of left foot with OTHER PART OF LEFT [facility]) other specified FOOT WITH OTHER severity SPECIFIED SEVERITY I73.9 Peripheral vascular PERIPHERAL Problem 08/27/2019 MEDGE N (St disease, unspecified VASCULAR DISEASE, 12:00:00 AM [facility] UNSPECIFIED [facility], [facility]) I10 Essential (primary) ESSENTIAL Problem 08/27/2019 MEDGE N (St hypertension (PRIMARY) 12:00:00 AM [facility] HYPERTENSION [facility], [facility]) 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 08/27/2019 ME DGEN (St ulcer of other part CHRONIC ULCER OF 12:00:00 A M Juan C's of left foot with OTHER PART OF LEFT [facility], [facility]) other specified FOOT WITH OTHER severity SPECIFIED SEVERITY I73.9 Peripheral vascular PERIPHERAL Problem 08/27/2019 MEDGE N (St disease, unspecified VASCULAR DISEASE, 12:00:00 AM [facility] UNSPECIFIED [facility], [facility]) I10 Essential (primary) ESSENTIAL Problem 08/27/2019 MEDGE N (St hypertension (PRIMARY) 12:00:00 AM [facility] HYPERTENSION [facility], [facility]) 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 08/27/2019 ME DGEN (St ulcer of other part CHRONIC ULCER OF 12:00:00 A M Juan C's of left foot with OTHER PART OF LEFT [facility], [facility]) other specified FOOT WITH OTHER severity SPECIFIED SEVERITY I73.9 Peripheral vascular PERIPHERAL Problem 08/27/2019 MEDGE N (St disease, unspecified VASCULAR DISEASE, 12:00:00 AM [facility] UNSPECIFIED [facility], [facility]) I10 Essential (primary) ESSENTIAL Problem 08/27/2019 MEDGE N (St hypertension (PRIMARY) 12:00:00 AM [facility] HYPERTENSION [facility], [facility]) 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 08/27/2019 ME DGEN (St ulcer of other part CHRONIC ULCER OF 12:00:00 A M Juan C's of left foot with OTHER PART OF LEFT [facility]) other specified FOOT WITH OTHER severity SPECIFIED SEVERITY I73.9 Peripheral vascular PERIPHERAL Problem 08/27/2019 MEDGE N (St disease, unspecified VASCULAR DISEASE, 12:00:00 AM [facility] UNSPECIFIED [facility], [facility]) I10 Essential (primary) ESSENTIAL Problem 08/27/2019 MEDGE N (St hypertension (PRIMARY) 12:00:00 AM [facility] C's HYPERTENSION [facility], [facility]) 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 08/27/2019 ME DGEN (St ulcer of other part CHRONIC ULCER OF 12:00:00 A M Juan C's of left foot with OTHER PART OF LEFT [facility], [facility]) other specified FOOT WITH OTHER severity SPECIFIED SEVERITY I73.9 Peripheral vascular PERIPHERAL Problem 08/27/2019 MEDGE N (St disease, unspecified VASCULAR DISEASE, 12:00:00 AM [facility] UNSPECIFIED [facility], [facility]) I10 Essential (primary) ESSENTIAL Problem 08/27/2019 MEDGE N (St hypertension (PRIMARY) 12:00:00 AM Juan C's HYPERTENSION [facility], [facility]) R91.8 Other nonspecific R91.8 Diagnosis 05/02/2020 [place] abnormal finding of 10:37:00 AM Hosp ital lung field EDT J90 Pleural effusion, J90 Diagnosis 05/02/2020 [place] not elsewhere 10:37:00 AM Hospital classified EDT 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 10:37:00 AM [facility] [place] coronary EDT artery without angina pectoris I51.7 Cardiomegaly I51.7 Diagnosis 05/02/2020 [place] 10:37:00 AM Hospital EDT C90.00 Multiple myeloma not C90.00 Diagnosis 05/02/2020 [place] having achieved 10:37:00 AM Hospital remission EDT N20.0 Calculus of kidney N20.0 Diagnosis 05/02/2020 [place] 10:37:00 AM Hospital EDT 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.02 Diagnosis 05/02/2020 [place] renal cysts 10:37:00 AM Hospital EDT R59.0 Localized enlarged R59.0 Diagnosis 05/02/2020 [place] lymph nodes 10:37:00 AM Hospital EDT Surgeries/Procedures Procedure Description Date Indications Data Source(s) Documentation of current 06/14/2020 MED GEN ([facility] medications (procedure) 12:00:00 AM EDT st[facility] ) Documentation of current 06/14/2020 MED GEN ([facility] medications (procedure) 12:00:00 AM EDT stefan ) Documentation of current 06/14/2020 MED GEN ([facility] medications (procedure) 12:00:00 AM EDT stefan ) OFFICE OUTPATIENT VISIT 06/14/2020 MEDG EN ([facility] 15 MINUTES 12:00:00 AM [facility] Medical, ) Documentation of current 05/31/2020 MED GEN (Buck's medications (procedure) 12:00:00 AM EDT stefan ) Documentation of current 05/31/2020 MED GEN ([facility] medications (procedure) 12:00:00 AM EDT stefan ) Documentation of current 05/31/2020 MED GEN ([facility]'s medications (procedure) 12:00:00 AM EDT stefan ) OFFICE OUTPATIENT VISIT 05/31/2020 MEDG EN ([facility] 15 MINUTES 12:00:00 AM [facility] Medical ) Documentation of current 05/31/2020 MED GEN ([facility]'s medications (procedure) 12:00:00 AM EDT stefan ) OFFICE OUTPATIENT VISIT 05/31/2020 MEDG EN ([facility] 15 MINUTES 12:00:00 AM [facility] Medical, ) OFFICE OUTPATIENT VISIT 05/31/2020 [facility]/10/2020 [facility] 05/10/2020 MEDG EN ([facility] 15 MINUTES 12:00:00 AM [facility] [place], ) OFFICE OUTPATIENT VISIT 05/10/2020 MEDG EN ([facility] 15 MINUTES 12:00:00 AM [facility] [place], ) OFFICE OUTPATIENT VISIT 05/05/2020 MEDG EN ([facility] 15 MINUTES 12:00:00 AM [facility] [place], ) COLLECTION VENOUS BLOOD 05/05/2020 MEDG EN ([facility] VENIPUNCTURE 12:00:00 AM [facility] [place], ) OFFICE OUTPATIENT VISIT 05/05/2020 MEDG EN ([facility] 15 MINUTES 12:00:00 AM [facility] [place], ) COLLECTION VENOUS BLOOD 05/05/2020 MEDG EN ([facility] VENIPUNCTURE 12:00:00 AM [facility] [place], ) OFFICE OUTPATIENT VISIT 05/05/2020 MEDG EN ([facility] 15 MINUTES 12:00:00 AM [facility] [place], ) COLLECTION VENOUS BLOOD 05/05/2020 MEDG EN ([facility] VENIPUNCTURE 12:00:00 AM [facility] [place], ) OFFICE OUTPATIENT VISIT 05/05/2020 MEDG EN ([facility] 15 MINUTES 12:00:00 AM [facility] [place], ) COLLECTION VENOUS BLOOD 05/05/2020 MEDG EN ([facility] VENIPUNCTURE 12:00:00 AM [facility] [place], ) Documentation of current 05/03/2020 MED GEN ([facility]'s medications (procedure) 12:00:00 AM EDT [facility] ) Documentation of current 05/03/2020 MED GEN ([facility]'s medications (procedure) 12:00:00 AM EDT [facility] ) Documentation of current 05/03/2020 MED GEN ([facility] medications (procedure) 12:00:00 AM EDT [facility], ) Documentation of current 05/03/2020 MED GEN ([facility] medications (procedure) 12:00:00 AM EDT M edical, PC) Documentation of current 05/03/2020 MED GEN ([facility]'s medications (procedure) 12:00:00 AM EDT SAM[facility]ON Jaffe) Documentation of current 05/03/2020 MED GEN ([facility] medications (procedure) 12:00:00 AM EDT [facility] Jaffe) Documentation of current 05/03/2020 MED GEN ([facility] medications (procedure) 12:00:00 AM EDT [facility], PC) Documentation of current 05/03/2020 MED GEN ([facility] medications (procedure) 12:00:00 AM EDT [facility], PC) Documentation of current 05/03/2020 MED GEN ([facility] medications (procedure) 12:00:00 AM EDT [facility], PC) Documentation of current 05/03/2020 MED GEN ([facility] medications (procedure) 12:00:00 AM EDT [facility]efan PC) Documentation of current 05/03/2020 MED GEN ([facility] medications (procedure) 12:00:00 AM EDT [facility], SAMPSON) Documentation of current 05/03/2020 MED GEN ([facility] medications (procedure) 12:00:00 AM EDT [facility], PC) Documentation of current 05/03/2020 MED GEN ([facility]'s medications (procedure) 12:00:00 AM EDT [facility] aviles) Documentation of current 05/03/2020 MED GEN ([facility]'s medications (procedure) 12:00:00 AM EDT SAM[facility]ON Jaffe) OFFICE OUTPATIENT VISIT 05/03/2020 MEDG EN ([facility] 15 MINUTES 12:00:00 AM SAM[facility] Pena) Documentation of current 05/03/2020 MED GEN ([facility]'s medications (procedure) 12:00:00 AM EDT [facility]) Documentation of current 05/03/2020 MED GEN ([facility]'s medications (procedure) 12:00:00 AM EDT [facility]) Documentation of current 05/03/2020 MED GEN ([facility]'s medications (procedure) 12:00:00 AM EDT [facility]) Documentation of current 05/03/2020 MED GEN ([facility]'s medications (procedure) 12:00:00 AM EDT SAM[facility] Jaffe) OFFICE OUTPATIENT VISIT 05/03/2020 MEDG EN ([facility] 15 MINUTES 12:00:00 AM EDT Medical, PC) Documentation of current 05/03/2020 MED GEN ([facility] medications (procedure) 12:00:00 AM EDT [facility], PC) Documentation of current 05/03/2020 MED GEN ([facility]'s medications (procedure) 12:00:00 AM EDT [facility], PC) Documentation of current 05/03/2020 MED GEN ([facility] medications (procedure) 12:00:00 AM EDT [facility], PC) Documentation of current 05/03/2020 MED GEN ([facility] medications (procedure) 12:00:00 AM EDT [facility], PC) Documentation of current 05/03/2020 MED GEN ([facility] medications (procedure) 12:00:00 AM EDT edical, PC) Documentation of current 05/03/2020 MED GEN ([facility] medications (procedure) 12:00:00 AM EDT [facility], PC) Documentation of current 05/03/2020 MED GEN ([facility] medications (procedure) 12:00:00 AM EDT [facility], PC) Documentation of current 05/03/2020 MED GEN ([facility] medications (procedure) 12:00:00 AM EDT [facility], PC) Documentation of current 05/03/2020 MED GEN ([facility] medications (procedure) 12:00:00 AM EDT [facility], PC) Documentation of current 05/03/2020 MED GEN ([facility] medications (procedure) 12:00:00 AM EDT [facility], PC) Documentation of current 05/03/2020 MED GEN ([facility] medications (procedure) 12:00:00 AM EDT [facility], PC) Documentation of current 05/03/2020 MED GEN ([facility] medications (procedure) 12:00:00 AM EDT [facility], PC) Documentation of current 05/03/2020 MED GEN ([facility] medications (procedure) 12:00:00 AM EDT edical, PC) Documentation of current 05/03/2020 MED GEN ([facility] medications (procedure) 12:00:00 AM EDT [facility], PC) OFFICE OUTPATIENT VISIT 05/03/2020 MEDG EN ([facility] 15 MINUTES 12:00:00 AM EDT Medical, PC) Documentation of current 05/03/2020 MED GEN ([facility]'s medications (procedure) 12:00:00 AM EDT [facility], PC) Documentation of current 05/03/2020 MED GEN ([facility] medications (procedure) 12:00:00 AM EDT [facility], PC) Documentation of current 05/03/2020 MED GEN ([facility] medications (procedure) 12:00:00 AM EDT [facility], PC) Documentation of current 05/03/2020 MED GEN ([facility] medications (procedure) 12:00:00 AM EDT [facility], PC) Documentation of current 05/03/2020 MED GEN ([facility] medications (procedure) 12:00:00 AM EDT [facility], PC) Documentation of current 05/03/2020 MED GEN ([facility] medications (procedure) 12:00:00 AM EDT [facility], PC) Documentation of current 05/03/2020 MED GEN ([facility] medications (procedure) 12:00:00 AM EDT [facility], PC) Documentation of current 05/03/2020 MED GEN ([facility] medications (procedure) 12:00:00 AM EDT [facility], PC) Documentation of current 05/03/2020 MED GEN ([facility] medications (procedure) 12:00:00 AM EDT [facility], PC) Documentation of current 05/03/2020 MED GEN ([facility] medications (procedure) 12:00:00 AM EDT [facility], PC) Documentation of current 05/03/2020 MED GEN ([facility] medications (procedure) 12:00:00 AM EDT [facility], PC) Documentation of current 05/03/2020 MED GEN ([facility] medications (procedure) 12:00:00 AM EDT [facility], PC) Documentation of current 05/03/2020 MED GEN ([facility] medications (procedure) 12:00:00 AM EDT [facility], PC) Documentation of current 05/03/2020 MED GEN ([facility] medications (procedure) 12:00:00 AM EDT [facility], [facility]) OFFICE OUTPATIENT VISIT 05/03/2020 MEDG EN ([facility] 15 MINUTES 12:00:00 AM EDT Medical, PC) Documentation of current 05/03/2020 MED GEN ([facility]'s medications (procedure) 12:00:00 AM EDT [facility], PC) Documentation of current 05/03/2020 MED GEN ([facility] medications (procedure) 12:00:00 AM EDT [facility], PC) OFFICE OUTPATIENT VISIT 05/03/2020 MEDG EN ([facility] 15 MINUTES 12:00:00 AM EDT Medical, PC) Documentation of current 05/03/2020 MED GEN ([facility] medications (procedure) 12:00:00 AM EDT [facility], PC) Documentation of current 05/03/2020 MED GEN ([facility] medications (procedure) 12:00:00 AM EDT [facility], PC) Documentation of current 05/03/2020 MED GEN ([facility] medications (procedure) 12:00:00 AM EDT [facility], PC) Documentation of current 05/03/2020 MED GEN ([facility] medications (procedure) 12:00:00 AM EDT [facility], PC) Documentation of current 05/03/2020 MED GEN ([facility] medications (procedure) 12:00:00 AM EDT [facility], PC) Documentation of current 05/03/2020 MED GEN ([facility] medications (procedure) 12:00:00 AM EDT [facility], PC) Documentation of current 05/03/2020 MED GEN ([facility] medications (procedure) 12:00:00 AM EDT [facility], PC) Documentation of current 05/03/2020 MED GEN ([facility] medications (procedure) 12:00:00 AM EDT [facility], PC) Documentation of current 05/03/2020 MED GEN ([facility] medications (procedure) 12:00:00 AM EDT [facility]ef[facility], PC) Documentation of current 05/03/2020 MED GEN ([facility] medications (procedure) 12:00:00 AM EDT [facility], PC) Documentation of current 04/26/2020 MED GEN ([facility] medications (procedure) 12:00:00 AM EDT [facility], PC) OFFICE OUTPATIENT VISIT 04/26/2020 MEDG EN ([facility] 15 MINUTES 12:00:00 AM EDT Medical, PC) COLLECTION VENOUS BLOOD 04/26/2020 MEDG EN ([facility] VENIPUNCTURE 12:00:00 AM [facility] [place], ) Documentation of current 04/26/2020 MED GEN (Buck's medications (procedure) 12:00:00 AM [facility], ) OFFICE OUTPATIENT VISIT 04/26/2020 MEDG EN ([facility] 15 MINUTES 12:00:00 AM [facility] [place], ) COLLECTION VENOUS BLOOD 04/26/2020 MEDG EN ([facility] VENIPUNCTURE 12:00:00 AM [facility] [place], ) Documentation of current 04/26/2020 MED GEN (Buck's medications (procedure) 12:00:00 AM [facility]) OFFICE OUTPATIENT VISIT 04/26/2020 MEDG EN ([facility] 15 MINUTES 12:00:00 AM [facility] [place], ) COLLECTION VENOUS BLOOD 04/26/2020 MEDG EN ([facility] VENIPUNCTURE 12:00:00 AM [facility] [place], ) Documentation of current 04/26/2020 MED GEN (Buck's medications (procedure) 12:00:00 AM [facility]) OFFICE OUTPATIENT VISIT 04/26/2020 MEDG EN ([facility] 15 MINUTES 12:00:00 AM [facility] [place], ) COLLECTION VENOUS BLOOD 04/26/2020 MEDG EN ([facility] VENIPUNCTURE 12:00:00 AM [facility] [place], ) Documentation of current 04/26/2020 MED GEN (Buck's medications (procedure) 12:00:00 AM [facility], ) OFFICE OUTPATIENT VISIT 04/26/2020 MEDG EN ([facility] 15 MINUTES 12:00:00 AM [facility] [place], ) COLLECTION VENOUS BLOOD 04/26/2020 MEDG EN ([facility] VENIPUNCTURE 12:00:00 AM [facility] [place], ) Documentation of current 04/26/2020 MED GEN (Buck's medications (procedure) 12:00:00 AM [facility], ) OFFICE OUTPATIENT VISIT 04/26/2020 MEDG EN ([facility] 15 MINUTES 12:00:00 AM [facility] [place], ) COLLECTION VENOUS BLOOD 04/26/2020 MEDG EN ([facility] VENIPUNCTURE 12:00:00 AM [facility] [place], ) OFFICE OUTPATIENT VISIT 04/19/2020 MEDG EN ([facility] 25 MINUTES 12:00:00 AM EDT Medical, ) OFFICE OUTPATIENT VISIT 04/19/2020 MEDG EN ([facility] 25 MINUTES 12:00:00 AM EDT Medical, ) OFFICE OUTPATIENT VISIT 04/19/2020 MEDG EN ([facility] 25 MINUTES 12:00:00 AM EDT Medical, ) OFFICE OUTPATIENT VISIT 04/19/2020 MEDG EN ([facility] 25 MINUTES 12:00:00 AM EDT Medical, ) OFFICE OUTPATIENT VISIT 04/19/2020 MEDG EN ([facility] 25 MINUTES 12:00:00 AM EDT Medical, ) OFFICE OUTPATIENT VISIT 04/19/2020 MEDG EN ([facility] 25 MINUTES 12:00:00 AM EDT Medical, ) OFFICE OUTPATIENT VISIT 04/19/2020 MEDG EN ([facility] 25 MINUTES 12:00:00 AM EDT Medical, ) Documentation of current 03/24/2020 MED GEN ([facility]'s medications (procedure) 12:00:00 AM EDT stefan, SAMPSON) Documentation of current 03/24/2020 MED GEN ([facility] medications (procedure) 12:00:00 AM EDT stefan, SAMPSON) Documentation of current 03/24/2020 MED GEN ([facility] medications (procedure) 12:00:00 AM EDT stefan, SAMPSON) Documentation of current 03/24/2020 MED GEN ([facility] medications (procedure) 12:00:00 AM EDT [facility]) Documentation of current 03/24/2020 MED GEN ([facility] medications (procedure) 12:00:00 AM EDT [facility]) Documentation of current 03/24/2020 MED GEN ([facility] medications (procedure) 12:00:00 AM EDT [facility]) Documentation of current 03/24/2020 MED GEN ([facility]'s medications (procedure) 12:00:00 AM EDT SAMPSON Jaffe) Documentation of current 03/24/2020 MED GEN ([facility] medications (procedure) 12:00:00 AM EDT [facility] PC) Documentation of current 03/24/2020 MED GEN ([facility]'s medications (procedure) 12:00:00 AM EDT M [facility]) Documentation of current 03/24/2020 MED GEN ([facility]'s medications (procedure) 12:00:00 AM EDT [facility], PC) Documentation of current 03/24/2020 MED GEN ([facility]'s medications (procedure) 12:00:00 AM EDT [facility], [facility]ON) Documentation of current 03/24/2020 MED GEN ([facility]'s medications (procedure) 12:00:00 AM EDT [facility], PC) Documentation of current 03/24/2020 MED GEN ([facility] medications (procedure) 12:00:00 AM EDT SAM[facility]ON Jaffe) Documentation of current 03/24/2020 MED GEN ([facility] medications (procedure) 12:00:00 AM EDT SAM[facility]ON Jaffe) Documentation of current 03/24/2020 MED GEN ([facility] medications (procedure) 12:00:00 AM EDT SAMPSON Jaffe) Documentation of current 03/24/2020 MED GEN ([facility] medications (procedure) 12:00:00 AM EDT SAM[facility] Jaffe) OFFICE OUTPATIENT VISIT 03/24/2020 MEDG EN ([facility] 15 MINUTES 12:00:00 AM EDT SAMPSON Galindo) Documentation of current 03/24/2020 MED GEN (Buck's medications (procedure) 12:00:00 AM EDT SAMPSON Jaffe) Documentation of current 03/24/2020 MED GEN ([facility]'s medications (procedure) 12:00:00 AM EDT SAMPSON Jaffe) Documentation of current 03/24/2020 MED GEN ([facility] medications (procedure) 12:00:00 AM EDT SAMPSON Jaffe) Documentation of current 03/24/2020 MED GEN (Buck's medications (procedure) 12:00:00 AM EDT [facility]) Documentation of current 03/24/2020 MED GEN (Buck's medications (procedure) 12:00:00 AM EDT [facility], PC) Documentation of current 03/24/2020 MED GEN (Buck's medications (procedure) 12:00:00 AM EDT [facility], PC) Documentation of current 03/24/2020 MED GEN (Buck's medications (procedure) 12:00:00 AM EDT [facility], PC) Documentation of current 03/24/2020 MED GEN ([facility] medications (procedure) 12:00:00 AM EDT [facility], PC) Documentation of current 03/24/2020 MED GEN ([facility]'s medications (procedure) 12:00:00 AM EDT edical, PC) Documentation of current 03/24/2020 MED GEN ([facility]'s medications (procedure) 12:00:00 AM EDT edical, PC) Documentation of current 03/24/2020 MED GEN ([facility] medications (procedure) 12:00:00 AM EDT edical, PC) Documentation of current 03/24/2020 MED GEN (Buck's medications (procedure) 12:00:00 AM EDT [facility], [facility]) Documentation of current 03/24/2020 MED GEN (Buck's medications (procedure) 12:00:00 AM EDT [facility], PC) Documentation of current 03/24/2020 MED GEN ([facility]'s medications (procedure) 12:00:00 AM EDT [facility], PC) Documentation of current 03/24/2020 MED GEN (Buck's medications (procedure) 12:00:00 AM EDT [facility], PC) Documentation of current 03/24/2020 MED GEN (Buck's medications (procedure) 12:00:00 AM EDT [facility], PC) OFFICE OUTPATIENT VISIT 03/24/2020 MEDG EN ([facility] 15 MINUTES 12:00:00 AM [facility] [place], PC) Documentation of current 03/24/2020 MED GEN (Buck's medications (procedure) 12:00:00 AM EDT [facility], PC) Documentation of current 03/24/2020 MED GEN (Buck's medications (procedure) 12:00:00 AM EDT [facility], PC) Documentation of current 03/24/2020 MED GEN ([facility] medications (procedure) 12:00:00 AM EDT edical, PC) Documentation of current 03/24/2020 MED GEN ([facility] medications (procedure) 12:00:00 AM EDT [facility], PC) Documentation of current 03/24/2020 MED GEN ([facility] medications (procedure) 12:00:00 AM EDT edical, PC) Documentation of current 03/24/2020 MED GEN ([facility] medications (procedure) 12:00:00 AM EDT [facility], PC) Documentation of current 03/24/2020 MED GEN ([facility] medications (procedure) 12:00:00 AM EDT edical, PC) Documentation of current 03/24/2020 MED GEN ([facility] medications (procedure) 12:00:00 AM EDT [facility], PC) Documentation of current 03/24/2020 MED GEN ([facility]'s medications (procedure) 12:00:00 AM EDT edical, PC) Documentation of current 03/24/2020 MED GEN ([facility]'s medications (procedure) 12:00:00 AM EDT [facility], PC) Documentation of current 03/24/2020 MED GEN ([facility] medications (procedure) 12:00:00 AM EDT edical, PC) Documentation of current 03/24/2020 MED GEN ([facility] medications (procedure) 12:00:00 AM EDT [facility], PC) Documentation of current 03/24/2020 MED GEN ([facility] medications (procedure) 12:00:00 AM EDT [facility], PC) Documentation of current 03/24/2020 MED GEN ([facility] medications (procedure) 12:00:00 AM EDT [facility], PC) Documentation of current 03/24/2020 MED GEN ([facility] medications (procedure) 12:00:00 AM EDT [facility], PC) Documentation of current 03/24/2020 MED GEN ([facility] medications (procedure) 12:00:00 AM EDT [facility], PC) OFFICE OUTPATIENT VISIT 03/24/2020 MEDG EN ([facility] 15 MINUTES 12:00:00 AM [facility] [place], PC) Documentation of current 03/24/2020 MED GEN (Buck's medications (procedure) 12:00:00 AM EDT [facility], PC) Documentation of current 03/24/2020 MED GEN ([facility] medications (procedure) 12:00:00 AM EDT [facility], PC) Documentation of current 03/24/2020 MED GEN ([facility] medications (procedure) 12:00:00 AM EDT [facility], PC) Documentation of current 03/24/2020 MED GEN ([facility] medications (procedure) 12:00:00 AM EDT [facility], PC) Documentation of current 03/24/2020 MED GEN ([facility] medications (procedure) 12:00:00 AM EDT [facility], PC) Documentation of current 03/24/2020 MED GEN ([facility] medications (procedure) 12:00:00 AM EDT [facility], PC) Documentation of current 03/24/2020 MED GEN ([facility] medications (procedure) 12:00:00 AM EDT [facility], PC) Documentation of current 03/24/2020 MED GEN ([facility] medications (procedure) 12:00:00 AM EDT [facility], PC) Documentation of current 03/24/2020 MED GEN ([facility] medications (procedure) 12:00:00 AM EDT [facility], PC) Documentation of current 03/24/2020 MED GEN ([facility] medications (procedure) 12:00:00 AM EDT [facility], PC) Documentation of current 03/24/2020 MED GEN ([facility] medications (procedure) 12:00:00 AM EDT [facility], PC) Documentation of current 03/24/2020 MED GEN ([facility] medications (procedure) 12:00:00 AM EDT [facility], PC) Documentation of current 03/24/2020 MED GEN ([facility] medications (procedure) 12:00:00 AM EDT [facility], PC) Documentation of current 03/24/2020 MED GEN ([facility] medications (procedure) 12:00:00 AM EDT [facility], PC) Documentation of current 03/24/2020 MED GEN ([facility] medications (procedure) 12:00:00 AM EDT [facility] PC) Documentation of current 03/24/2020 MED GEN ([facility]'s medications (procedure) 12:00:00 AM EDT [facility], PC) OFFICE OUTPATIENT VISIT 03/24/2020 MEDG EN ([facility] 15 MINUTES 12:00:00 AM [facility] Documentation of current 03/24/2020 MED GEN ([facility] (procedure) 12:00:00 AM [facility]) Documentation of current 03/24/2020 MED GEN ([facility] (procedure) 12:00:00 AM [facility]) Documentation of current 03/24/2020 MED GEN ([facility] (procedure) 12:00:00 AM [facility]) Documentation of current 03/24/2020 MED GEN ([facility] (procedure) 12:00:00 AM [facility]) Documentation of current 03/24/2020 MED GEN ([facility] (procedure) 12:00:00 AM [facility]) Documentation of current 03/24/2020 MED GEN ([facility] (procedure) 12:00:00 AM [facility]) Documentation of current 03/24/2020 MED GEN ([facility] (procedure) 12:00:00 AM [facility]) Documentation of current 03/24/2020 MED GEN ([facility] (procedure) 12:00:00 AM [facility]) Documentation of current 03/24/2020 MED GEN ([facility] (procedure) 12:00:00 AM [facility]) Documentation of current 03/24/2020 MED GEN ([facility] (procedure) 12:00:00 AM [facility]) Documentation of current 03/24/2020 MED GEN ([facility] (procedure) 12:00:00 AM [facility]) Documentation of current 03/24/2020 MED GEN ([facility] (procedure) 12:00:00 AM [facility]) Documentation of current 03/24/2020 MED GEN ([facility] (procedure) 12:00:00 AM [facility]) Documentation of current 03/24/2020 MED GEN ([facility] (procedure) 12:00:00 AM [facility]) Documentation of current 03/24/2020 MED GEN ([facility] (procedure) 12:00:00 AM [facility]) Documentation of current 03/24/2020 MED GEN ([facility] (procedure) 12:00:00 AM [facility]) OFFICE OUTPATIENT VISIT 03/24/2020 MEDG EN ([facility] 15 MINUTES 12:00:00 AM [facility]) Documentation of current 03/24/2020 MED GEN ([facility] (procedure) 12:00:00 AM [facility]) Documentation of current 03/24/2020 MED GEN ([facility] (procedure) 12:00:00 AM [facility]) Documentation of current 03/24/2020 MED GEN ([facility] (procedure) 12:00:00 AM [facility]) Documentation of current 03/24/2020 MED GEN ([facility] (procedure) 12:00:00 AM [facility]) Documentation of current 03/24/2020 MED GEN ([facility] (procedure) 12:00:00 AM [facility]) Documentation of current 03/24/2020 MED GEN ([facility] (procedure) 12:00:00 AM [facility]) Documentation of current 03/24/2020 MED GEN ([facility] (procedure) 12:00:00 AM [facility]) Documentation of current 03/24/2020 MED GEN ([facility] (procedure) 12:00:00 AM [facility]) Documentation of current 03/24/2020 MED GEN ([facility] (procedure) 12:00:00 AM [facility]) Documentation of current 03/24/2020 MED GEN ([facility] (procedure) 12:00:00 AM [facility]) Documentation of current 03/24/2020 MED GEN ([facility] (procedure) 12:00:00 AM [facility]) Documentation of current 03/24/2020 MED GEN ([facility] (procedure) 12:00:00 AM [facility]) Documentation of current 03/24/2020 MED GEN ([facility] (procedure) 12:00:00 AM [facility]) Documentation of current 03/24/2020 MED GEN ([facility] (procedure) 12:00:00 AM [facility]) Documentation of current 03/24/2020 MED GEN ([facility] (procedure) 12:00:00 AM [facility]) Documentation of current 03/24/2020 MED GEN ([facility] (procedure) 12:00:00 AM [facility]) OFFICE OUTPATIENT VISIT 03/24/2020 MEDG EN ([facility] 15 MINUTES 12:00:00 AM [facility]) Documentation of current 03/24/2020 MED GEN ([facility] (procedure) 12:00:00 AM [facility]) Documentation of current 03/24/2020 MED GEN ([facility] (procedure) 12:00:00 AM [facility]) Documentation of current 03/24/2020 MED GEN ([facility] (procedure) 12:00:00 AM [facility]T [facility]) Documentation of current 03/24/2020 MED GEN ([facility] (procedure) 12:00:00 AM [facility]) Documentation of current 03/24/2020 MED GEN ([facility] (procedure) 12:00:00 AM [facility]T [facility]) Documentation of current 03/24/2020 MED GEN ([facility] (procedure) 12:00:00 AM [facility]) Documentation of current 03/24/2020 MED GEN ([facility] (procedure) 12:00:00 AM [facility]) Documentation of current 03/24/2020 MED GEN ([facility] (procedure) 12:00:00 AM [facility]) Documentation of current 03/24/2020 MED GEN ([facility] (procedure) 12:00:00 AM [facility]) Documentation of current 03/24/2020 MED GEN ([facility] (procedure) 12:00:00 AM [facility]) Documentation of current 03/24/2020 MED GEN ([facility] (procedure) 12:00:00 AM EDT [facility]) Documentation of current 03/24/2020 MED GEN ([facility] (procedure) 12:00:00 AM [facility]T [facility]) Documentation of current 03/24/2020 MED GEN ([facility] (procedure) 12:00:00 AM EDT [facility]) Documentation of current 03/24/2020 MED GEN ([facility] (procedure) 12:00:00 AM EDT [facility]) Documentation of current 03/24/2020 MED GEN ([facility] (procedure) 12:00:00 AM [facility]) Documentation of current 03/24/2020 MED GEN ([facility] (procedure) 12:00:00 AM [facility]) OFFICE OUTPATIENT VISIT 03/24/2020 MEDG EN ([facility] 15 MINUTES 12:00:00 AM [facility]) Documentation of current 03/24/2020 MED GEN ([facility] (procedure) 12:00:00 AM [facility]) Documentation of current 03/24/2020 MED GEN ([facility] (procedure) 12:00:00 AM [facility]) Documentation of current 03/24/2020 MED GEN ([facility] (procedure) 12:00:00 AM [facility]) Documentation of current 03/24/2020 MED GEN ([facility] (procedure) 12:00:00 AM [facility]) Documentation of current 03/24/2020 MED GEN ([facility] (procedure) 12:00:00 AM [facility]) Documentation of current 03/24/2020 MED GEN ([facility] (procedure) 12:00:00 AM [facility]) Documentation of current 03/24/2020 MED GEN ([facility] (procedure) 12:00:00 AM [facility]) Documentation of current 03/24/2020 MED GEN ([facility] (procedure) 12:00:00 AM [facility]) Documentation of current 03/24/2020 MED GEN ([facility] (procedure) 12:00:00 AM [facility]) Documentation of current 03/24/2020 MED GEN ([facility] (procedure) 12:00:00 AM [facility]) Documentation of current 03/24/2020 MED GEN ([facility] (procedure) 12:00:00 AM [facility]) Documentation of current 03/24/2020 MED GEN ([facility] (procedure) 12:00:00 AM [facility]) Documentation of current 03/24/2020 MED GEN ([facility] (procedure) 12:00:00 AM [facility]) OFFICE OUTPATIENT VISIT 03/24/2020 MEDG EN ([facility] 15 MINUTES 12:00:00 AM [facility]) Documentation of current 03/24/2020 MED GEN ([facility] (procedure) 12:00:00 AM [facility]) Documentation of current 03/24/2020 MED GEN ([facility] (procedure) 12:00:00 AM [facility]) Documentation of current 03/24/2020 MED GEN ([facility] (procedure) 12:00:00 AM [facility]) Documentation of current 03/24/2020 MED GEN ([facility] (procedure) 12:00:00 AM [facility]) Documentation of current 03/24/2020 MED GEN ([facility] (procedure) 12:00:00 AM [facility]) Documentation of current 03/24/2020 MED GEN ([facility] (procedure) 12:00:00 AM [facility]) Documentation of current 03/24/2020 MED GEN ([facility] (procedure) 12:00:00 AM [facility]) Documentation of current 03/24/2020 MED GEN ([facility] (procedure) 12:00:00 AM [facility]) Documentation of current 03/24/2020 MED GEN ([facility] (procedure) 12:00:00 AM [facility]) Documentation of current 03/24/2020 MED GEN ([facility] (procedure) 12:00:00 AM [facility]) OFFICE OUTPATIENT VISIT 03/24/2020 MEDG EN ([facility] 15 MINUTES 12:00:00 AM [facility]) Documentation of current 03/24/2020 MED GEN ([facility] (procedure) 12:00:00 AM [facility]) Documentation of current 03/24/2020 MED GEN ([facility] (procedure) 12:00:00 AM [facility]) OFFICE OUTPATIENT VISIT 03/24/2020 MEDG EN ([facility] 15 MINUTES 12:00:00 AM [facility]) Documentation of current 03/22/2020 MED GEN ([facility] (procedure) 12:00:00 AM [facility]) Documentation of current 03/22/2020 MED GEN ([facility] (procedure) 12:00:00 AM [facility]T [facility]) Documentation of current 03/22/2020 MED GEN ([facility] (procedure) 12:00:00 AM EDT [facility]) Documentation of current 03/22/2020 MED GEN ([facility] (procedure) 12:00:00 AM [facility]T [facility]) Documentation of current 03/22/2020 MED GEN ([facility] (procedure) 12:00:00 AM EDT [facility]) Documentation of current 03/22/2020 MED GEN ([facility] (procedure) 12:00:00 AM EDT [facility]) Documentation of current 03/22/2020 MED GEN ([facility] (procedure) 12:00:00 AM EDT [facility]) Documentation of current 03/22/2020 MED GEN ([facility] (procedure) 12:00:00 AM EDT [facility]) Documentation of current 03/22/2020 MED GEN ([facility] (procedure) 12:00:00 AM EDT [facility]) Documentation of current 03/22/2020 MED GEN ([facility] (procedure) 12:00:00 AM [facility]) Documentation of current 03/22/2020 MED GEN ([facility] (procedure) 12:00:00 AM [facility]) Documentation of current 03/22/2020 MED GEN ([facility] (procedure) 12:00:00 AM [facility]T [facility]) Documentation of current 03/22/2020 MED GEN ([facility] (procedure) 12:00:00 AM [facility]T [facility]) OFFICE OUTPATIENT VISIT 03/22/2020 MEDG EN ([facility] 25 MINUTES 12:00:00 AM [facility]) COLLECTION VENOUS BLOOD 03/22/2020 MEDG EN ([facility] VENIPUNCTURE 12:00:00 AM [facility], [facility]) Documentation of current 03/22/2020 MED GEN ([facility] (procedure) 12:00:00 AM [facility]T [facility]) Documentation of current 03/22/2020 MED GEN ([facility] (procedure) 12:00:00 AM EDT [facility]) Documentation of current 03/22/2020 MED GEN ([facility] (procedure) 12:00:00 AM EDT [facility]) Documentation of current 03/22/2020 MED GEN ([facility] (procedure) 12:00:00 AM EDT [facility]) Documentation of current 03/22/2020 MED GEN ([facility] (procedure) 12:00:00 AM EDT [facility], [facility]) Documentation of current 03/22/2020 MED GEN ([facility] (procedure) 12:00:00 AM EDT [facility]) Documentation of current 03/22/2020 MED GEN ([facility] (procedure) 12:00:00 AM [facility]) Documentation of current 03/22/2020 MED GEN ([facility] (procedure) 12:00:00 AM EDT [facility]) Documentation of current 03/22/2020 MED GEN ([facility] (procedure) 12:00:00 AM [facility]) Documentation of current 03/22/2020 MED GEN ([facility] (procedure) 12:00:00 AM [facility]) Documentation of current 03/22/2020 MED GEN ([facility] (procedure) 12:00:00 AM [facility]) Documentation of current 03/22/2020 MED GEN ([facility] (procedure) 12:00:00 AM EDT [facility]) Documentation of current 03/22/2020 MED GEN ([facility] (procedure) 12:00:00 AM EDT [facility]) Documentation of current 03/22/2020 MED GEN ([facility] (procedure) 12:00:00 AM EDT [facility]) Documentation of current 03/22/2020 MED GEN ([facility] (procedure) 12:00:00 AM [facility]) Documentation of current 03/22/2020 MED GEN ([facility] medications (procedure) 12:00:00 AM [facility]) Documentation of current 03/22/2020 MED GEN ([facility] (procedure) 12:00:00 AM [facility]) Documentation of current 03/22/2020 MED GEN ([facility] (procedure) 12:00:00 AM ED[facility]) Documentation of current 03/22/2020 MED GEN ([facility] medications (procedure) 12:00:00 AM [facility]) Documentation of current 03/22/2020 MED GEN ([facility] (procedure) 12:00:00 AM ED[facility]) Documentation of current 03/22/2020 MED GEN ([facility] (procedure) 12:00:00 AM EDT [facility]) Documentation of current 03/22/2020 MED GEN ([facility] (procedure) 12:00:00 AM [facility]) Documentation of current 03/22/2020 MED GEN ([facility] medications (procedure) 12:00:00 AM EDT [facility]) OFFICE OUTPATIENT VISIT 03/22/2020 MEDG EN ([facility] 25 MINUTES 12:00:00 AM [facility] [place], ) COLLECTION VENOUS BLOOD 03/22/2020 MEDG EN ([facility] VENIPUNCTURE 12:00:00 AM [facility] [place], ) Documentation of current 03/22/2020 MED GEN ([facility] medications (procedure) 12:00:00 AM [facility]) Documentation of current 03/22/2020 MED GEN ([facility] medications (procedure) 12:00:00 AM [facility]T [facility]) Documentation of current 03/22/2020 MED GEN ([facility] medications (procedure) 12:00:00 AM [facility]T [facility]) Documentation of current 03/22/2020 MED GEN ([facility] medications (procedure) 12:00:00 AM [facility]) Documentation of current 03/22/2020 MED GEN ([facility] medications (procedure) 12:00:00 AM EDT [facility]) Documentation of current 03/22/2020 MED GEN ([facility] (procedure) 12:00:00 AM [facility]T [facility]) Documentation of current 03/22/2020 MED GEN ([facility] medications (procedure) 12:00:00 AM EDT [facility]) Documentation of current 03/22/2020 MED GEN ([facility] medications (procedure) 12:00:00 AM EDT [facility]) Documentation of current 03/22/2020 MED GEN ([facility] medications (procedure) 12:00:00 AM [facility]) Documentation of current 03/22/2020 MED GEN ([facility] medications (procedure) 12:00:00 AM EDT [facility]) OFFICE OUTPATIENT VISIT 03/22/2020 MEDG EN ([facility] 25 MINUTES 12:00:00 AM [facility]) COLLECTION VENOUS BLOOD 03/22/2020 MEDG EN ([facility] VENIPUNCTURE 12:00:00 AM [facility] [place], ) Documentation of current 03/22/2020 MED GEN ([facility] medications (procedure) 12:00:00 AM EDT [facility]) Documentation of current 03/22/2020 MED GEN ([facility] medications (procedure) 12:00:00 AM EDT [facility]) Documentation of current 03/22/2020 MED GEN ([facility] medications (procedure) 12:00:00 AM [facility]) Documentation of current 03/22/2020 MED GEN ([facility] medications (procedure) 12:00:00 AM [facility]) Documentation of current 03/22/2020 MED GEN ([facility] medications (procedure) 12:00:00 AM [facility]T [facility]) Documentation of current 03/22/2020 MED GEN ([facility] medications (procedure) 12:00:00 AM [facility]T [facility]) Documentation of current 03/22/2020 MED GEN ([facility] medications (procedure) 12:00:00 AM [facility]) Documentation of current 03/22/2020 MED GEN ([facility] medications (procedure) 12:00:00 AM [facility]T [facility]) Documentation of current 03/22/2020 MED GEN ([facility] medications (procedure) 12:00:00 AM EDT [facility], ) Documentation of current 03/22/2020 MED GEN ([facility] medications (procedure) 12:00:00 AM EDT [facility], ) Documentation of current 03/22/2020 MED GEN ([facility] medications (procedure) 12:00:00 AM EDT [facility], ) Documentation of current 03/22/2020 MED GEN ([facility] medications (procedure) 12:00:00 AM EDT [facility], ) Documentation of current 03/22/2020 MED GEN ([facility] medications (procedure) 12:00:00 AM EDT [facility], ) OFFICE OUTPATIENT VISIT 03/22/2020 MEDG EN ([facility] 25 MINUTES 12:00:00 AM [facility], ) COLLECTION VENOUS BLOOD 03/22/2020 MEDG EN ([facility] VENIPUNCTURE 12:00:00 AM [facility] [place], ) Documentation of current 03/22/2020 MED GEN ([facility] medications (procedure) 12:00:00 AM EDT [facility], ) Documentation of current 03/22/2020 MED GEN ([facility] medications (procedure) 12:00:00 AM [facility]T [facility]) Documentation of current 03/22/2020 MED GEN ([facility] medications (procedure) 12:00:00 AM EDT [facility], ) OFFICE OUTPATIENT VISIT 03/22/2020 MEDG EN ([facility] 25 MINUTES 12:00:00 AM [facility]T [facility], ) COLLECTION VENOUS BLOOD 03/22/2020 MEDG EN ([facility] VENIPUNCTURE 12:00:00 AM [facility], ) Documentation of current 03/22/2020 MED GEN ([facility] medications (procedure) 12:00:00 AM EDT [facility], [facility]) Documentation of current 03/22/2020 MED GEN ([facility] medications (procedure) 12:00:00 AM EDT [facility], [facility]) Documentation of current 03/22/2020 MED GEN ([facility] medications (procedure) 12:00:00 AM EDT [facility], [facility]) Documentation of current 03/22/2020 MED GEN ([facility] medications (procedure) 12:00:00 AM [facility]T [facility]) Documentation of current 03/22/2020 MED GEN ([facility] medications (procedure) 12:00:00 AM EDT [facility]) Documentation of current 03/22/2020 MED GEN ([facility] medications (procedure) 12:00:00 AM EDT [facility]) Documentation of current 03/22/2020 MED GEN ([facility] medications (procedure) 12:00:00 AM [facility]T [facility]) Documentation of current 03/22/2020 MED GEN ([facility] medications (procedure) 12:00:00 AM EDT [facility]) Documentation of current 03/22/2020 MED GEN ([facility] medications (procedure) 12:00:00 AM EDT [facility]) Documentation of current 03/22/2020 MED GEN ([facility] medications (procedure) 12:00:00 AM EDT [facility]) Documentation of current 03/22/2020 MED GEN ([facility] medications (procedure) 12:00:00 AM EDT [facility]) Documentation of current 03/22/2020 MED GEN ([facility] medications (procedure) 12:00:00 AM EDT [facility]) Documentation of current 03/22/2020 MED GEN ([facility] medications (procedure) 12:00:00 AM EDT [facility]) OFFICE OUTPATIENT VISIT 03/22/2020 MEDG EN ([facility] 25 MINUTES 12:00:00 AM [facility] [place], ) COLLECTION VENOUS BLOOD 03/22/2020 MEDG EN ([facility] VENIPUNCTURE 12:00:00 AM [facility] [place], PC) Documentation of current 03/22/2020 MED GEN ([facility] medications (procedure) 12:00:00 AM [facility]T [facility]) Documentation of current 03/22/2020 MED GEN ([facility] medications (procedure) 12:00:00 AM [facility]T [facility], [facility]) Documentation of current 03/22/2020 MED GEN ([facility] medications (procedure) 12:00:00 AM EDT [facility], [facility]) Documentation of current 03/22/2020 MED GEN ([facility] medications (procedure) 12:00:00 AM EDT [facility], [facility]) Documentation of current 03/22/2020 MED GEN ([facility] medications (procedure) 12:00:00 AM [facility]T [facility]) Documentation of current 03/22/2020 MED GEN ([facility] medications (procedure) 12:00:00 AM EDT [facility]) Documentation of current 03/22/2020 MED GEN ([facility] medications (procedure) 12:00:00 AM EDT [facility], [facility]) Documentation of current 03/22/2020 MED GEN ([facility] medications (procedure) 12:00:00 AM EDT [facility]) Documentation of current 03/22/2020 MED GEN ([facility] medications (procedure) 12:00:00 AM EDT [facility], [facility]) Documentation of current 03/22/2020 MED GEN ([facility] medications (procedure) 12:00:00 AM EDT [facility]) Documentation of current 03/22/2020 MED GEN ([facility] medications (procedure) 12:00:00 AM EDT [facility]) Documentation of current 03/22/2020 MED GEN ([facility] medications (procedure) 12:00:00 AM EDT [facility]) Documentation of current 03/22/2020 MED GEN ([facility] medications (procedure) 12:00:00 AM [facility]) OFFICE OUTPATIENT VISIT 03/22/2020 MEDG EN ([facility] 25 MINUTES 12:00:00 AM [facility] [place], ) COLLECTION VENOUS BLOOD 03/22/2020 MEDG EN ([facility] VENIPUNCTURE 12:00:00 AM [facility] [place], ) Documentation of current 03/22/2020 MED GEN ([facility] medications (procedure) 12:00:00 AM [facility]) Documentation of current 03/22/2020 MED GEN ([facility] medications (procedure) 12:00:00 AM [facility]) Documentation of current 03/22/2020 MED GEN ([facility] medications (procedure) 12:00:00 AM EDT [facility], [facility]) Documentation of current 03/22/2020 MED GEN ([facility] medications (procedure) 12:00:00 AM EDT [facility], [facility]) Documentation of current 03/22/2020 MED GEN ([facility] medications (procedure) 12:00:00 AM EDT [facility], [facility]) Documentation of current 03/22/2020 MED GEN ([facility] medications (procedure) 12:00:00 AM EDT [facility], [facility]) Documentation of current 03/22/2020 MED GEN ([facility] medications (procedure) 12:00:00 AM EDT [facility], [facility]) Documentation of current 03/22/2020 MED GEN ([facility] medications (procedure) 12:00:00 AM EDT [facility], [facility]) Documentation of current 03/22/2020 MED GEN ([facility] medications (procedure) 12:00:00 AM EDT [facility], [facility]) Documentation of current 03/22/2020 MED GEN ([facility] medications (procedure) 12:00:00 AM EDT [facility], [facility]) Documentation of current 03/22/2020 MED GEN ([facility] medications (procedure) 12:00:00 AM EDT [facility]) Documentation of current 03/22/2020 MED GEN ([facility] medications (procedure) 12:00:00 AM EDT [facility], ) Documentation of current 03/22/2020 MED GEN ([facility] medications (procedure) 12:00:00 AM EDT [facility], ) OFFICE OUTPATIENT VISIT 03/22/2020 MEDG EN ([facility] 25 MINUTES 12:00:00 AM [facility] [place], ) COLLECTION VENOUS BLOOD 03/22/2020 MEDG EN ([facility] VENIPUNCTURE 12:00:00 AM [facility] [place], ) Documentation of current 03/22/2020 MED GEN ([facility] medications (procedure) 12:00:00 AM [facility]) Documentation of current 03/22/2020 MED GEN ([facility] medications (procedure) 12:00:00 AM EDT [facility], [facility]) Documentation of current 03/22/2020 MED GEN ([facility] medications (procedure) 12:00:00 AM EDT [facility], [facility]) Documentation of current 03/22/2020 MED GEN ([facility] medications (procedure) 12:00:00 AM EDT [facility], [facility]) Documentation of current 03/22/2020 MED GEN ([facility] medications (procedure) 12:00:00 AM EDT [facility], [facility]) Documentation of current 03/22/2020 MED GEN ([facility] medications (procedure) 12:00:00 AM EDT [facility], [facility]) Documentation of current 03/22/2020 MED GEN ([facility] medications (procedure) 12:00:00 AM EDT [facility], [facility]) Documentation of current 03/22/2020 MED GEN ([facility] medications (procedure) 12:00:00 AM EDT [facility], [facility]) Documentation of current 03/22/2020 MED GEN ([facility] medications (procedure) 12:00:00 AM EDT [facility], [facility]) Documentation of current 03/22/2020 MED GEN ([facility] medications (procedure) 12:00:00 AM EDT [facility]) OFFICE OUTPATIENT VISIT 03/22/2020 MEDG EN ([facility] 25 MINUTES 12:00:00 AM [facility] [place], ) COLLECTION VENOUS BLOOD 03/22/2020 MEDG EN ([facility] VENIPUNCTURE 12:00:00 AM [facility] [place], ) Documentation of current 03/22/2020 MED GEN ([facility] medications (procedure) 12:00:00 AM [facility]T [facility]) Documentation of current 03/22/2020 MED GEN ([facility] medications (procedure) 12:00:00 AM [facility]T [facility], [facility]) Documentation of current 03/22/2020 MED GEN ([facility] medications (procedure) 12:00:00 AM EDT [facility], [facility]) Documentation of current 03/22/2020 MED GEN ([facility] medications (procedure) 12:00:00 AM EDT [facility], [facility]) Documentation of current 03/22/2020 MED GEN ([facility] medications (procedure) 12:00:00 AM EDT [facility], [facility]) Documentation of current 03/22/2020 MED GEN ([facility] medications (procedure) 12:00:00 AM EDT [facility], [facility]) Documentation of current 03/22/2020 MED GEN ([facility] medications (procedure) 12:00:00 AM EDT [facility], [facility]) Documentation of current 03/22/2020 MED GEN ([facility] medications (procedure) 12:00:00 AM EDT [facility], [facility]) Documentation of current 03/22/2020 MED GEN ([facility] medications (procedure) 12:00:00 AM EDT [facility]) Documentation of current 03/22/2020 MED GEN ([facility] medications (procedure) 12:00:00 AM EDT [facility]) Documentation of current 03/22/2020 MED GEN ([facility] medications (procedure) 12:00:00 AM EDT [facility]) Documentation of current 03/22/2020 MED GEN ([facility] medications (procedure) 12:00:00 AM EDT [facility]) Documentation of current 03/22/2020 MED GEN ([facility] medications (procedure) 12:00:00 AM EDT [facility]) Documentation of current 03/22/2020 MED GEN ([facility] medications (procedure) 12:00:00 AM EDT [facility]) Documentation of current 03/22/2020 MED GEN ([facility] medications (procedure) 12:00:00 AM EDT [facility]) Documentation of current 02/16/2020 MED GEN ([facility] medications (procedure) 12:00:00 AM EDT [facility]) Documentation of current 02/16/2020 MED GEN ([facility] medications (procedure) 12:00:00 AM EDT [facility]) Documentation of current 02/16/2020 MED GEN ([facility] medications (procedure) 12:00:00 AM EDT [facility]) Documentation of current 02/16/2020 MED GEN ([facility] medications (procedure) 12:00:00 AM EDT [facility]) Documentation of current 02/16/2020 MED GEN ([facility] medications (procedure) 12:00:00 AM EDT [facility]) Documentation of current 02/16/2020 MED GEN ([facility] medications (procedure) 12:00:00 AM EDT SAMPSON Jaffe) PHYSICIAN TELEPHONE 02/16/2020 MEDGEN ( [facility] EVALUATION 21-30 MIN 12:00:00 AM EDT SAMPSON Mortensen) Documentation of current 02/16/2020 MED GEN ([facility] medications (procedure) 12:00:00 AM EDT SAMPSON Jaffe) Documentation of current 02/16/2020 MED GEN ([facility] medications (procedure) 12:00:00 AM EDT [facility]) Documentation of current 02/16/2020 MED GEN ([facility] medications (procedure) 12:00:00 AM EDT [facility]) Documentation of current 02/16/2020 MED GEN ([facility] medications (procedure) 12:00:00 AM EDT [facility]) Documentation of current 02/16/2020 MED GEN ([facility] medications (procedure) 12:00:00 AM EDT [facility]) Documentation of current 02/16/2020 MED GEN ([facility] medications (procedure) 12:00:00 AM EDT [facility]) PHYSICIAN TELEPHONE 02/16/2020 [facility] ( [facility] EVALUATION 21-30 MIN 12:00:00 AM EDT Cathi wray, ) Documentation of current 02/16/2020 MED GEN ([facility] medications (procedure) 12:00:00 AM EDT [facility]) Documentation of current 02/16/2020 MED GEN ([facility] medications (procedure) 12:00:00 AM EDT [facility]) Documentation of current 02/16/2020 MED GEN ([facility] medications (procedure) 12:00:00 AM EDT [facility]) Documentation of current 02/16/2020 MED GEN ([facility] medications (procedure) 12:00:00 AM EDT [facility]) Documentation of current 02/16/2020 MED GEN ([facility] medications (procedure) 12:00:00 AM EDT [facility]) Documentation of current 02/16/2020 MED [facility] ([facility] medications (procedure) 12:00:00 AM EDT [facility]) PHYSICIAN TELEPHONE 02/16/2020 [facility] ( [facility] EVALUATION 21-30 MIN 12:00:00 AM EDT Cathi wray ) Documentation of current 02/16/2020 MED GEN ([facility] medications (procedure) 12:00:00 AM EDT [facility]) Documentation of current 02/16/2020 MED GEN ([facility] medications (procedure) 12:00:00 AM EDT [facility]) Documentation of current 02/16/2020 MED GEN ([facility] medications (procedure) 12:00:00 AM EDT [facility]) Documentation of current 02/16/2020 MED GEN ([facility] medications (procedure) 12:00:00 AM EDT [facility]) Documentation of current 02/16/2020 MED GEN ([facility] medications (procedure) 12:00:00 AM EDT [facility]) Documentation of current 02/16/2020 MED [facility] ([facility] medications (procedure) 12:00:00 AM EDT [facility]) PHYSICIAN TELEPHONE 02/16/2020 [facility] ( [facility] EVALUATION 21-30 MIN 12:00:00 AM EDT Cathi wray, ) Documentation of current 02/16/2020 MED [facility] ([facility] medications (procedure) 12:00:00 AM EDT [facility]) Documentation of current 02/16/2020 MED GEN ([facility] medications (procedure) 12:00:00 AM EDT [facility]) Documentation of current 02/16/2020 MED GEN ([facility] medications (procedure) 12:00:00 AM EDT [facility]) Documentation of current 02/16/2020 MED GEN ([facility] medications (procedure) 12:00:00 AM EDT [facility]) Documentation of current 02/16/2020 MED GEN ([facility] medications (procedure) 12:00:00 AM EDT [facility]) Documentation of current 02/16/2020 MED [facility] ([facility] medications (procedure) 12:00:00 AM EDT [facility]) PHYSICIAN TELEPHONE 02/16/2020 [facility] ( [facility] EVALUATION 21-30 MIN 12:00:00 AM EDT [facility] nils, ) Documentation of current 02/16/2020 MED GEN ([facility] medications (procedure) 12:00:00 AM EDT [facility]) Documentation of current 02/16/2020 MED GEN ([facility] medications (procedure) 12:00:00 AM EDT [facility]) Documentation of current 02/16/2020 MED GEN ([facility] medications (procedure) 12:00:00 AM EDT [facility]) Documentation of current 02/16/2020 MED GEN ([facility] medications (procedure) 12:00:00 AM EDT [facility]) Documentation of current 02/16/2020 MED GEN ([facility] medications (procedure) 12:00:00 AM EDT [facility]) Documentation of current 02/16/2020 MED [facility] ([facility] medications (procedure) 12:00:00 AM EDT [facility]) PHYSICIAN TELEPHONE 02/16/2020 [facility] ( [facility] EVALUATION 21-30 MIN 12:00:00 AM EDT Cathi wray ) Documentation of current 02/16/2020 MED GEN ([facility] medications (procedure) 12:00:00 AM EDT [facility]) Documentation of current 02/16/2020 MED GEN ([facility] medications (procedure) 12:00:00 AM EDT [facility]) Documentation of current 02/16/2020 MED GEN ([facility] medications (procedure) 12:00:00 AM EDT [facility]) Documentation of current 02/16/2020 MED [facility] ([facility] medications (procedure) 12:00:00 AM EDT [facility]) Documentation of current 02/16/2020 MED GEN ([facility] medications (procedure) 12:00:00 AM EDT [facility]) Documentation of current 02/16/2020 MED GEN ([facility] medications (procedure) 12:00:00 AM EDT [facility]) PHYSICIAN TELEPHONE 02/16/2020 [facility] ( [facility] EVALUATION 21-30 MIN 12:00:00 AM EDT Cathi wray ) Documentation of current 02/16/2020 MED GEN ([facility] medications (procedure) 12:00:00 AM EDT [facility]) Documentation of current 02/16/2020 MED GEN ([facility] medications (procedure) 12:00:00 AM EDT [facility]) Documentation of current 02/16/2020 MED GEN ([facility] medications (procedure) 12:00:00 AM EDT [facility]) Documentation of current 02/16/2020 MED GEN ([facility] medications (procedure) 12:00:00 AM EDT [facility]) Documentation of current 02/16/2020 MED GEN ([facility] medications (procedure) 12:00:00 AM EDT [facility]an ) Documentation of current 02/16/2020 MED GEN ([facility] medications (procedure) 12:00:00 AM EDT [facility]) PHYSICIAN TELEPHONE 02/16/2020 [facility] ( [facility] EVALUATION 21-30 MIN 12:00:00 AM EDT Cathi wray ) Documentation of current 02/16/2020 MED GEN ([facility] medications (procedure) 12:00:00 AM EDT [facility]) Documentation of current 02/16/2020 MED GEN ([facility] medications (procedure) 12:00:00 AM EDT [facility]) Documentation of current 02/16/2020 MED GEN ([facility] medications (procedure) 12:00:00 AM EDT [facility]) Documentation of current 02/16/2020 MED GEN ([facility] medications (procedure) 12:00:00 AM EDT [facility]) Documentation of current 02/16/2020 MED GEN ([facility] medications (procedure) 12:00:00 AM EDT [facility]) Documentation of current 02/16/2020 MED GEN ([facility] medications (procedure) 12:00:00 AM EDT [facility]) PHYSICIAN TELEPHONE 02/16/2020 MED[facility] ( [facility] EVALUATION 21-30 MIN 12:00:00 AM EDT [facility] nils ) Documentation of current 02/16/2020 MED GEN ([facility] medications (procedure) 12:00:00 AM EDT [facility]) Documentation of current 02/16/2020 MED GEN ([facility] medications (procedure) 12:00:00 AM EDT [facility]) Documentation of current 02/16/2020 MED GEN ([facility] medications (procedure) 12:00:00 AM EDT [facility]) Documentation of current 02/16/2020 MED GEN ([facility] medications (procedure) 12:00:00 AM EDT [facility]) Documentation of current 02/16/2020 MED GEN ([facility] medications (procedure) 12:00:00 AM EDT [facility]) Documentation of current 02/16/2020 MED GEN ([facility] medications (procedure) 12:00:00 AM EDT [facility]) PHYSICIAN TELEPHONE 02/16/2020 MED[facility] ( [facility] EVALUATION 21-30 MIN 12:00:00 AM EDT [facility], ) Documentation of current 02/16/2020 MED GEN ([facility] medications [facility]procedure) 12:00:00 AM [facility] ) Documentation of current 02/16/2020 MED GEN ([facility] medications (procedure) 12:00:00 AM EDT [facility] ) Documentation of current 02/16/2020 MED GEN (Buck's medications (procedure) 12:00:00 AM EDT [facility] ) Documentation of current 02/16/2020 MED GEN ([facility] medications (procedure) 12:00:00 AM ED[facility] ) Documentation of current 02/16/2020 MED GEN ([facility] medications (procedure) 12:00:00 AM EDT [facility], ) Documentation of current 02/16/2020 MED GEN ([facility] medications (procedure) 12:00:00 AM ED[facility] ) PHYSICIAN TELEPHONE 02/16/2020 MED[facility] ( [facility] EVALUATION 21-30 MIN 12:00:00 AM EDT [facility], ) OFFICE OUTPATIENT VISIT 12/15/2019 MEDG EN ([facility] 15 MINUTES 12:00:00 AM EDT Medical, ) OFFICE OUTPATIENT VISIT 12/15/2019 MEDG EN ([facility] 15 MINUTES 12:00:00 AM EDT Medical, ) OFFICE OUTPATIENT VISIT 12/15/2019 MEDG EN ([facility] 15 MINUTES 12:00:00 AM EDT Medical, ) OFFICE OUTPATIENT VISIT 12/15/2019 MEDG EN ([facility] 15 MINUTES 12:00:00 AM EDT Medical, ) OFFICE OUTPATIENT VISIT 12/15/2019 MEDG EN ([facility] 15 MINUTES 12:00:00 AM EDT Medical, ) OFFICE OUTPATIENT VISIT 12/15/2019 MEDG EN ([facility] 15 MINUTES 12:00:00 AM EDT Medical, ) OFFICE OUTPATIENT VISIT 12/15/2019 MEDG EN ([facility] 15 MINUTES 12:00:00 AM EDT Medical, ) OFFICE OUTPATIENT VISIT 12/15/2019 MEDG EN ([facility] 15 MINUTES 12:00:00 AM EDT Medical, ) OFFICE OUTPATIENT VISIT 12/15/2019 MEDG EN ([facility] 15 MINUTES 12:00:00 AM EDT [facility]) OFFICE OUTPATIENT VISIT 12/15/2019 MEDG EN ([facility] 15 MINUTES 12:00:00 AM EDT [facility], [facility]) OFFICE OUTPATIENT VISIT 12/15/2019 MEDG EN ([facility] 15 MINUTES 12:00:00 AM EDT [facility]) Documentation of current 11/17/2019 MED GEN ([facility] medications (procedure) 12:00:00 AM SAMPSON Cevallos) Documentation of current 11/17/2019 MED GEN ([facility] medications (procedure) 12:00:00 AM SAMPSON Cevallos) Documentation of current 11/17/2019 MED GEN ([facility] medications (procedure) 12:00:00 AM SAMPSON Cevallos) Documentation of current 11/17/2019 MED GEN ([facility] medications (procedure) 12:00:00 AM SAMPSON Cevallos) Documentation of current 11/17/2019 MED GEN ([facility] medications (procedure) 12:00:00 AM SAMPSON Cevallos) Documentation of current 11/17/2019 MED GEN ([facility] medications (procedure) 12:00:00 AM SAMPSON Cevallos) Documentation of current 11/17/2019 MED GEN ([facility] medications (procedure) 12:00:00 AM SAMPSON Cevallos) Documentation of current 11/17/2019 MED GEN ([facility] medications (procedure) 12:00:00 AM SAMPSON Cevallos) Documentation of current 11/17/2019 MED GEN ([facility] medications (procedure) 12:00:00 AM SAMPSON Cevallos) Documentation of current 11/17/2019 MED GEN ([facility] medications (procedure) 12:00:00 AM SAMPSON Cevallos) Documentation of current 11/17/2019 MED GEN ([facility] medications (procedure) 12:00:00 AM SAMPSON Cevallos) Documentation of current 11/17/2019 MED GEN ([facility] medications (procedure) 12:00:00 AM SAMPSON Cevallos) Documentation of current 11/17/2019 MED GEN ([facility] medications (procedure) 12:00:00 AM SAMPSON Cevallos) Documentation of current 11/17/2019 MED GEN ([facility] medications (procedure) 12:00:00 AM SAMPSON Cevallos) Documentation of current 11/17/2019 MED GEN ([facility] medications (procedure) 12:00:00 AM SAMPSON Cevallos) OFFICE OUTPATIENT VISIT 11/17/2019 MEDG EN ([facility]'s 25 MINUTES 12:00:00 AM SAMPSON Lobo) COLLECTION VENOUS BLOOD 11/17/2019 MEDG EN ([facility] VENIPUNCTURE 12:00:00 AM SAMPSON Lobo) Documentation of current 11/17/2019 MED GEN ([facility] medications (procedure) 12:00:00 AM SAMPSON Cevallos) Documentation of current 11/17/2019 MED GEN ([facility]'s medications (procedure) 12:00:00 AM SAMPSON Cevallos) Documentation of current 11/17/2019 MED GEN (Buck's medications (procedure) 12:00:00 AM SAMPSON Cevallos) Documentation of current 11/17/2019 MED GEN (Buck's medications (procedure) 12:00:00 AM SAMPSON Cevallos) Documentation of current 11/17/2019 MED GEN ([facility] medications (procedure) 12:00:00 AM SAMPSON Cevallos) Documentation of current 11/17/2019 MED GEN ([facility] medications (procedure) 12:00:00 AM SAMPSON Cevallos) Documentation of current 11/17/2019 MED GEN ([facility]'s medications (procedure) 12:00:00 AM SAMPSON Cevallso) Documentation of current 11/17/2019 MED GEN (Buck[facility] medications (procedure) 12:00:00 AM SAMPSON Cevallos) Documentation of current 11/17/2019 MED GEN ([facility] medications (procedure) 12:00:00 AM SAMPSON Cevallos) Documentation of current 11/17/2019 MED GEN (Buck's medications (procedure) 12:00:00 AM SAMPSON Cevallos) Documentation of current 11/17/2019 MED GEN (Buck's medications (procedure) 12:00:00 AM SAMPSON Cevallos) Documentation of current 11/17/2019 MED GEN (Buck's medications (procedure) 12:00:00 AM SAMPSON Cevallos) Documentation of current 11/17/2019 MED GEN (Buck's medications (procedure) 12:00:00 AM SAMPSON Cevallos) Documentation of current 11/17/2019 MED GEN (Buck's medications (procedure) 12:00:00 AM SAMPSON Cevallos) Documentation of current 11/17/2019 MED GEN (Buck's medications (procedure) 12:00:00 AM SAMPSON Cevallos) OFFICE OUTPATIENT VISIT 11/17/2019 MEDG EN ([facility]'s 25 MINUTES 12:00:00 AM SAMPSON Lobo) COLLECTION VENOUS BLOOD 11/17/2019 MEDG EN ([facility]'s VENIPUNCTURE 12:00:00 AM SAMPSON Lobo) Documentation of current 11/17/2019 MED GEN (Buck's medications (procedure) 12:00:00 AM SAMPSON Cevallos) Documentation of current 11/17/2019 MED GEN (Buck's medications (procedure) 12:00:00 AM SAMPSON Cevallos) Documentation of current 11/17/2019 MED GEN (Buck's medications (procedure) 12:00:00 AM SAMPSON Cevallos) Documentation of current 11/17/2019 MED GEN (Buck's medications (procedure) 12:00:00 AM SAMPSON Cevallos) Documentation of current 11/17/2019 MED GEN (Buck's medications (procedure) 12:00:00 AM SAMPSON Cevallos) Documentation of current 11/17/2019 MED GEN (Buck's medications (procedure) 12:00:00 AM SAMPSON Cevallos) Documentation of current 11/17/2019 MED GEN ([facility] medications (procedure) 12:00:00 AM SAMPSON Cevallos) Documentation of current 11/17/2019 MED GEN (Buck[facility] medications (procedure) 12:00:00 AM SAMPSON Cevallos) Documentation of current 11/17/2019 MED GEN (Buck[facility] medications (procedure) 12:00:00 AM SAMPSON Cevallos) Documentation of current 11/17/2019 MED GEN (Buck[facility] medications (procedure) 12:00:00 AM SAMPSON Cevallos) Documentation of current 11/17/2019 MED GEN ([facility] medications (procedure) 12:00:00 AM MARILOU aviles, SAMPSON) Documentation of current 11/17/2019 MED GEN ([facility] medications (procedure) 12:00:00 AM SAMPSON Cevallos) Documentation of current 11/17/2019 MED GEN ([facility] medications (procedure) 12:00:00 AM SAMPSON Cevallos) Documentation of current 11/17/2019 MED GEN ([facility] medications (procedure) 12:00:00 AM SAMPSON Cevallos) Documentation of current 11/17/2019 MED GEN ([facility] medications (procedure) 12:00:00 AM MARILOU aviles, SAMPSON) OFFICE OUTPATIENT VISIT 11/17/2019 MEDG EN ([facility] 25 MINUTES 12:00:00 AM SAMPSON Lobo) COLLECTION VENOUS BLOOD 11/17/2019 MEDG EN ([facility] VENIPUNCTURE 12:00:00 AM SAMPSON Lobo) Documentation of current 11/17/2019 MED GEN ([facility] medications (procedure) 12:00:00 AM SAMPSON Cevallos) Documentation of current 11/17/2019 MED GEN (Buck[facility] medications (procedure) 12:00:00 AM MARILOU aviles, SAMPSON) Documentation of current 11/17/2019 MED GEN (Buck[facility] medications (procedure) 12:00:00 AM MARILOU aviles, SAMPSON) Documentation of current 11/17/2019 MED GEN ([facility] medications (procedure) 12:00:00 AM SAMPSON Cevallos) Documentation of current 11/17/2019 MED GEN ([facility] medications (procedure) 12:00:00 AM SAMPSON Cevallos) Documentation of current 11/17/2019 MED GEN ([facility] medications (procedure) 12:00:00 AM MARILOU aviles, SAMPSON) Documentation of current 11/17/2019 MED GEN (Buck[facility] medications (procedure) 12:00:00 AM SAMPSON Cevallos) Documentation of current 11/17/2019 MED GEN (Buck[facility] medications (procedure) 12:00:00 AM MARILOU aviles, SAMPSON) Documentation of current 11/17/2019 MED GEN ([facility] medications (procedure) 12:00:00 AM MARILOU aviles, SAMPSON) Documentation of current 11/17/2019 MED GEN ([facility] medications (procedure) 12:00:00 AM SAMPSON Cevallos) Documentation of current 11/17/2019 MED GEN ([facility] medications (procedure) 12:00:00 AM SAMPSON Cevallos) Documentation of current 11/17/2019 MED GEN ([facility] medications (procedure) 12:00:00 AM SAMPSON Cevallos) Documentation of current 11/17/2019 MED GEN ([facility] medications (procedure) 12:00:00 AM SAMPSON Cevallos) Documentation of current 11/17/2019 MED GEN ([facility] medications (procedure) 12:00:00 AM SAMPSON Cevallos) Documentation of current 11/17/2019 MED GEN ([facility] medications (procedure) 12:00:00 AM SAMPSON Cevallos) OFFICE OUTPATIENT VISIT 11/17/2019 MEDG EN ([facility] 25 MINUTES 12:00:00 AM SAMPSON Lobo) COLLECTION VENOUS BLOOD 11/17/2019 MEDG EN ([facility] VENIPUNCTURE 12:00:00 AM SAMPSON Lobo) Documentation of current 11/17/2019 MED GEN ([facility]'s medications (procedure) 12:00:00 AM MARILOU aviles, SAMPSON) Documentation of current 11/17/2019 MED GEN ([facility] medications (procedure) 12:00:00 AM SAMPSON Cevallos) Documentation of current 11/17/2019 MED GEN ([facility] medications (procedure) 12:00:00 AM SAMPSON Cevallos) Documentation of current 11/17/2019 MED GEN ([facility] medications (procedure) 12:00:00 AM SAMPSON Cevallos) Documentation of current 11/17/2019 MED GEN ([facility] medications (procedure) 12:00:00 AM MARILOU aviles, SAMPSON) Documentation of current 11/17/2019 MED GEN (Buck's medications (procedure) 12:00:00 AM MARILOU aviles, SAMPSON) Documentation of current 11/17/2019 MED GEN ([facility] medications (procedure) 12:00:00 AM MARILOU aviles, SAMPSON) Documentation of current 11/17/2019 MED GEN (Buck[facility] medications (procedure) 12:00:00 AM SAMPSON Cevallos) Documentation of current 11/17/2019 MED GEN (Buck[facility] medications (procedure) 12:00:00 AM SAMPSON Cevallos) Documentation of current 11/17/2019 MED GEN ([facility] medications (procedure) 12:00:00 AM SAMPSON Cevallos) Documentation of current 11/17/2019 MED GEN ([facility] medications (procedure) 12:00:00 AM SAMPSON Cevallos) Documentation of current 11/17/2019 MED GEN ([facility] medications (procedure) 12:00:00 AM SAMPSON Cevallos) Documentation of current 11/17/2019 MED GEN (Buck[facility] medications (procedure) 12:00:00 AM SAMPSON Cevallos) Documentation of current 11/17/2019 MED GEN ([facility] medications (procedure) 12:00:00 AM SAMPSON Cevallos) Documentation of current 11/17/2019 MED GEN ([facility] medications (procedure) 12:00:00 AM SAMPSON Cevallos) OFFICE OUTPATIENT VISIT 11/17/2019 MEDG EN ([facility] 25 MINUTES 12:00:00 AM SAMPSON Lobo) COLLECTION VENOUS BLOOD 11/17/2019 MEDG EN ([facility]'s VENIPUNCTURE 12:00:00 AM SAMPSON Lobo) Documentation of current 11/17/2019 MED GEN ([facility]'s medications (procedure) 12:00:00 AM SAMPSON Cevallos) Documentation of current 11/17/2019 MED GEN (Buck's medications (procedure) 12:00:00 AM SAMPSON Cevallos) Documentation of current 11/17/2019 MED GEN (Buck's medications (procedure) 12:00:00 AM SAMPSON Cevallos) Documentation of current 11/17/2019 MED GEN (Buck's medications (procedure) 12:00:00 AM SAMPSON Cevallos) Documentation of current 11/17/2019 MED GEN (Buck's medications (procedure) 12:00:00 AM SAMPSON Cevallos) Documentation of current 11/17/2019 MED GEN ([facility] medications (procedure) 12:00:00 AM SAMPSON Cevallos) Documentation of current 11/17/2019 MED GEN (Buck's medications (procedure) 12:00:00 AM SAMPSON Cevallos) Documentation of current 11/17/2019 MED GEN (Buck's medications (procedure) 12:00:00 AM SAMPSON Cevallos) Documentation of current 11/17/2019 MED GEN (Buck's medications (procedure) 12:00:00 AM SAMPSON Cevallos) Documentation of current 11/17/2019 MED GEN (Buck's medications (procedure) 12:00:00 AM SAMPSON Cevallos) Documentation of current 11/17/2019 MED GEN (Buck[facility] medications (procedure) 12:00:00 AM SAMPSON Cevallos) Documentation of current 11/17/2019 MED GEN (Buck[facility] medications (procedure) 12:00:00 AM SAMPSON Cevallos) Documentation of current 11/17/2019 MED GEN (Buck[facility] medications (procedure) 12:00:00 AM SAMPSON Cevallos) Documentation of current 11/17/2019 MED GEN (Buck[facility] medications (procedure) 12:00:00 AM SAMPSON Cevallos) Documentation of current 11/17/2019 MED GEN (Buck's medications (procedure) 12:00:00 AM SAMPSON Cevallos) OFFICE OUTPATIENT VISIT 11/17/2019 MEDG EN ([facility] 25 MINUTES 12:00:00 AM SAMPSON Lobo) COLLECTION VENOUS BLOOD 11/17/2019 MEDG EN ([facility] VENIPUNCTURE 12:00:00 AM SAMPSON Lobo) Documentation of current 11/17/2019 MED GEN (Buck[facility] medications (procedure) 12:00:00 AM SAMPSON Cevallos) Documentation of current 11/17/2019 MED GEN (Buck[facility] medications (procedure) 12:00:00 AM SAMPSON Cevallos) Documentation of current 11/17/2019 MED GEN (Buck[facility] medications (procedure) 12:00:00 AM SAMPSON Cevallos) Documentation of current 11/17/2019 MED GEN (Buck[facility] medications (procedure) 12:00:00 AM SAMPSON Cevallos) Documentation of current 11/17/2019 MED GEN (Buck[facility] medications (procedure) 12:00:00 AM SAMPSON Cevallos) Documentation of current 11/17/2019 MED GEN (Buck[facility] medications (procedure) 12:00:00 AM SAMPSON Cevallos) Documentation of current 11/17/2019 MED GEN (Buck[facility] medications (procedure) 12:00:00 AM SAMPSON Cevallos) Documentation of current 11/17/2019 MED GEN (Buck's medications (procedure) 12:00:00 AM MARILOU aviles, SAMPSON) Documentation of current 11/17/2019 MED GEN (Buck[facility] medications (procedure) 12:00:00 AM SAMPSON Cevallos) Documentation of current 11/17/2019 MED GEN (Buck's medications (procedure) 12:00:00 AM [facility] aviles, PC) Documentation of current 11/17/2019 MED GEN (Buck[facility] medications (procedure) 12:00:00 AM [facility]iles PC) Documentation of current 11/17/2019 MED GEN (Buck[facility] medications (procedure) 12:00:00 AM MARILOU aviles, PC) Documentation of current 11/17/2019 MED GEN (Buck[facility] medications (procedure) 12:00:00 AM SAMPSON Cevallos) Documentation of current 11/17/2019 MED GEN (Buck[facility] medications (procedure) 12:00:00 AM [facility]iles PC) Documentation of current 11/17/2019 MED GEN (Buck[facility] medications (procedure) 12:00:00 AM MARILOU aviles, SAMPSON) Documentation of current 11/17/2019 MED GEN ([facility] medications (procedure) 12:00:00 AM MAR[facility]OU aviles, PC) Documentation of current 11/17/2019 MED GEN (Buck's medications (procedure) 12:00:00 AM SAMPSON Cevallos) OFFICE OUTPATIENT VISIT 11/17/2019 MEDG EN ([facility] 25 MINUTES 12:00:00 AM MARILOU Galindo, PC) COLLECTION VENOUS BLOOD 11/17/2019 MEDG EN ([facility] VENIPUNCTURE 12:00:00 AM MARILOU Galindo, PC) Documentation of current 11/17/2019 MED GEN ([facility] medications (procedure) 12:00:00 AM MARILOU aviles, SAMPSON) Documentation of current 11/17/2019 MED GEN (Buck's medications (procedure) 12:00:00 AM SAMPSON Cevallos) Documentation of current 11/17/2019 MED GEN (Buck's medications (procedure) 12:00:00 AM SAMPSON Cevallos) Documentation of current 11/17/2019 MED GEN (Buck[facility] medications (procedure) 12:00:00 AM SAMPSON Cevallos) Documentation of current 11/17/2019 MED GEN (Buck's medications (procedure) 12:00:00 AM MARILOU aviles, SAMPSON) Documentation of current 11/17/2019 MED GEN (Buck's medications (procedure) 12:00:00 AM MARILOU aviles, SAMPSON) Documentation of current 11/17/2019 MED GEN (Buck's medications (procedure) 12:00:00 AM MARILOU aviles, SAMPSON) Documentation of current 11/17/2019 MED GEN (Buck's medications (procedure) 12:00:00 AM MARILOU aviles, SAMPSON) Documentation of current 11/17/2019 MED GEN (Buck's medications (procedure) 12:00:00 AM [facility] aviles, PC) Documentation of current 11/17/2019 MED GEN (Buck's medications (procedure) 12:00:00 AM SAMPSON Cevallos) Documentation of current 11/17/2019 MED GEN (Buck's medications (procedure) 12:00:00 AM MARILOU aviles, PC) Documentation of current 11/17/2019 MED GEN (Buck's medications (procedure) 12:00:00 AM SAMPSON Cevallos) Documentation of current 11/17/2019 MED GEN (Buck's medications (procedure) 12:00:00 AM MARILOU aviles, PC) Documentation of current 11/17/2019 MED GEN (Buck's medications (procedure) 12:00:00 AM SAMPSON Cevallos) Documentation of current 11/17/2019 MED GEN (Buck's medications (procedure) 12:00:00 AM MARILOU aviles, SAMPSON) OFFICE OUTPATIENT VISIT 11/17/2019 MEDG EN ([facility] 25 MINUTES 12:00:00 AM MARILOU Galindo [facility]) COLLECTION VENOUS BLOOD 11/17/2019 MEDG EN ([facility] VENIPUNCTURE 12:00:00 AM MARILOU Galindo, PC) Documentation of current 11/17/2019 MED GEN (Buck's medications (procedure) 12:00:00 AM SAMPSON Cevallos) Documentation of current 11/17/2019 MED GEN (Buck's medications (procedure) 12:00:00 AM SAMPSON Cevallos) Documentation of current 11/17/2019 MED GEN (Buck's medications (procedure) 12:00:00 AM SAMPSON Cevallos) Documentation of current 11/17/2019 MED GEN (Buck's medications (procedure) 12:00:00 AM SAMPSON Cevallos) Documentation of current 11/17/2019 MED GEN (Buck's medications (procedure) 12:00:00 AM SAMPSON Cevallos) Documentation of current 11/17/2019 MED GEN (Buck's medications (procedure) 12:00:00 AM SAMPSON Cevallos) Documentation of current 11/17/2019 MED GEN (Buck's medications (procedure) 12:00:00 AM SAMPSON Cevallos) Documentation of current 11/17/2019 MED GEN (Buck's medications (procedure) 12:00:00 AM SAMPSON Cevallos) Documentation of current 11/17/2019 MED GEN (Buck's medications (procedure) 12:00:00 AM SAMPSON Cevallos) Documentation of current 11/17/2019 MED GEN ([facility] (procedure) 12:00:00 AM SAMPSON Cevallos) Documentation of current 11/17/2019 MED GEN ([facility] (procedure) 12:00:00 AM SAMPSON Cevallos) Documentation of current 11/17/2019 MED GEN ([facility] (procedure) 12:00:00 AM SAMPSON Cevallos) Documentation of current 11/17/2019 MED GEN ([facility] (procedure) 12:00:00 AM SAMPSON Cevallos) Documentation of current 11/17/2019 MED GEN ([facility] (procedure) 12:00:00 AM SAMPSON Cevallos) Documentation of current 11/17/2019 MED GEN ([facility] (procedure) 12:00:00 AM SAMPSON Cevallos) OFFICE OUTPATIENT VISIT 11/17/2019 MEDG EN ([facility] 25 MINUTES 12:00:00 AM SAMPSON Lobo) COLLECTION VENOUS BLOOD 11/17/2019 MEDG EN ([facility] VENIPUNCTURE 12:00:00 AM SAMPSON Lobo) Documentation of current 11/17/2019 MED GEN ([facility] (procedure) 12:00:00 AM SAMPSON Cevallos) Documentation of current 11/17/2019 MED GEN ([facility] (procedure) 12:00:00 AM SAMPSON Cevallos) Documentation of current 11/17/2019 MED GEN ([facility] (procedure) 12:00:00 AM SAMPSON Cevallos) Documentation of current 11/17/2019 MED GEN ([facility] (procedure) 12:00:00 AM SAMPSON Cevallos) Documentation of current 11/17/2019 MED GEN ([facility] (procedure) 12:00:00 AM SAMPSON Cevallos) Documentation of current 11/17/2019 MED GEN ([facility] (procedure) 12:00:00 AM [facility]OU aviles, SAMPSON) Documentation of current 11/17/2019 MED GEN ([facility] (procedure) 12:00:00 AM SAMPSON Cevallos) Documentation of current 11/17/2019 MED GEN ([facility] (procedure) 12:00:00 AM MARILOU aviles, SAMPOSN) Documentation of current 11/17/2019 MED GEN ([facility] (procedure) 12:00:00 AM SAMPSON Cevallos) Documentation of current 11/17/2019 MED GEN ([facility] (procedure) 12:00:00 AM SAMPSON Cevallos) Documentation of current 11/17/2019 MED GEN ([facility] (procedure) 12:00:00 AM SAMPSON Cevallos) Documentation of current 11/17/2019 MED GEN ([facility] (procedure) 12:00:00 AM MARILOU aviles, SAMPSON) Documentation of current 11/17/2019 MED GEN ([facility] (procedure) 12:00:00 AM SAMPSON Cevallos) OFFICE OUTPATIENT VISIT 11/17/2019 MEDG EN ([facility] 25 MINUTES 12:00:00 AM [facility] Galindo, [facility]) COLLECTION VENOUS BLOOD 11/17/2019 MEDG EN ([facility] VENIPUNCTURE 12:00:00 AM [facility] Galindo, [facility]) Documentation of current 11/17/2019 MED GEN ([facility] (procedure) 12:00:00 AM SAMPSON Cevallos) Documentation of current 11/17/2019 MED GEN ([facility] (procedure) 12:00:00 AM SAMPSON Cevallos) Documentation of current 11/17/2019 MED GEN ([facility] (procedure) 12:00:00 AM SAMPSON Cevallos) Documentation of current 11/17/2019 MED GEN ([facility] (procedure) 12:00:00 AM SAMPSON Cevallos) Documentation of current 11/17/2019 MED GEN ([facility] (procedure) 12:00:00 AM SAMPSON Cevallos) Documentation of current 11/17/2019 MED GEN ([facility] (procedure) 12:00:00 AM SAMPSON Cevallos) Documentation of current 11/17/2019 MED GEN ([facility] (procedure) 12:00:00 AM SAMPSON Cevallos) Documentation of current 11/17/2019 MED GEN ([facility] (procedure) 12:00:00 AM SAMPSON Cevallos) Documentation of current 11/17/2019 MED GEN ([facility] (procedure) 12:00:00 AM SAMPSON Cevallos) Documentation of current 11/17/2019 MED GEN ([facility] (procedure) 12:00:00 AM SAMPSON Cevallos) Documentation of current 11/17/2019 MED GEN ([facility] (procedure) 12:00:00 AM SAMPSON Cevallos) Documentation of current 11/17/2019 MED GEN ([facility] (procedure) 12:00:00 AM SAMPSON Cevallos) Documentation of current 11/17/2019 MED GEN ([facility] (procedure) 12:00:00 AM SAMPSON Cevallos) Documentation of current 11/17/2019 MED GEN ([facility] (procedure) 12:00:00 AM SAMPSON Cevallos) Documentation of current 11/17/2019 MED GEN ([facility] (procedure) 12:00:00 AM SAMPSON Cevallos) OFFICE OUTPATIENT VISIT 11/17/2019 MEDG EN ([facility] 25 MINUTES 12:00:00 AM SAMPSON Lobo) COLLECTION VENOUS BLOOD 11/17/2019 MEDG EN ([facility]ENIPUN[facility]URE 12:00:00 AM [facility], [facility]) OFFICE OUTPATIENT VISIT 11/08/2019 MEDG EN ([facility] 15 MINUTES 12:00:00 AM [facility], [facility]) OFFICE OUTPATIENT VISIT 11/08/2019 MEDG EN ([facility] 15 MINUTES 12:00:00 AM [facility], [facility]) OFFICE OUTPATIENT VISIT 11/08/2019 MEDG EN ([facility] 15 MINUTES 12:00:00 AM [facility], [facility]) OFFICE OUTPATIENT VISIT 11/08/2019 MEDG EN ([facility] 15 MINUTES 12:00:00 AM [facility], [facility]) OFFICE OUTPATIENT VISIT 11/08/2019 MEDG EN ([facility] 15 MINUTES 12:00:00 AM [facility], [facility]) OFFICE OUTPATIENT VISIT 11/08/2019 MEDG EN ([facility] 15 MINUTES 12:00:00 AM [facility], [facility]) OFFICE OUTPATIENT VISIT 11/08/2019 MEDG EN ([facility] 15 MINUTES 12:00:00 AM [facility], [facility]) OFFICE OUTPATIENT VISIT 11/08/2019 MEDG EN ([facility] 15 MINUTES 12:00:00 AM [facility], [facility]) OFFICE OUTPATIENT VISIT 11/08/2019 MEDG EN ([facility] 15 MINUTES 12:00:00 AM [facility], [facility]) OFFICE OUTPATIENT VISIT 11/08/2019 MEDG EN ([facility] 15 MINUTES 12:00:00 AM [facility], [facility]) OFFICE OUTPATIENT VISIT 11/08/2019 MEDG EN ([facility] 15 MINUTES 12:00:00 AM [facility], [facility]) Documentation of current 09/22/2019 MED GEN ([facility] (procedure) 12:00:00 AM [facility]iles, PC) Documentation of current 09/22/2019 MED GEN ([facility] (procedure) 12:00:00 AM [facility], PC) Documentation of current 09/22/2019 MED GEN ([facility] (procedure) 12:00:00 AM [facility]iles, PC) Documentation of current 09/22/2019 MED GEN ([facility] (procedure) 12:00:00 AM [facility], PC) Documentation of current 09/22/2019 MED GEN ([facility] (procedure) 12:00:00 AM [facility] aviles, PC) Documentation of current 09/22/2019 MED GEN ([facility] (procedure) 12:00:00 AM [facility] PC) Documentation of current 09/22/2019 MED GEN ([facility] (procedure) 12:00:00 AM SAMPSON Cevallos) Documentation of current 09/22/2019 MED GEN ([facility] (procedure) 12:00:00 AM [facility], PC) OFFICE OUTPATIENT VISIT 09/22/2019 MEDG EN ([facility] 25 MINUTES 12:00:00 AM [facility] Galindo, [facility]) COLLECTION VENOUS BLOOD 09/22/2019 MEDG EN ([facility]ENIPUNCTURE 12:00:00 AM [facility] Galindo, [facility]) Documentation of current 09/22/2019 MED GEN ([facility] (procedure) 12:00:00 AM [facility], PC) Documentation of current 09/22/2019 MED GEN ([facility] (procedure) 12:00:00 AM [facility], PC) Documentation of current 09/22/2019 MED GEN ([facility] (procedure) 12:00:00 AM [facility] PC) Documentation of current 09/22/2019 MED GEN ([facility] (procedure) 12:00:00 AM [facility], PC) Documentation of current 09/22/2019 MED GEN ([facility] (procedure) 12:00:00 AM [facility] PC) Documentation of current 09/22/2019 MED GEN ([facility] (procedure) 12:00:00 AM [facility], PC) Documentation of current 09/22/2019 MED GEN ([facility] (procedure) 12:00:00 AM [facility] PC) Documentation of current 09/22/2019 MED GEN ([facility] (procedure) 12:00:00 AM [facility], PC) OFFICE OUTPATIENT VISIT 09/22/2019 MEDG EN ([facility] 25 MINUTES 12:00:00 AM [facility] Galindo, [facility]) COLLECTION VENOUS BLOOD 09/22/2019 MEDG EN ([facility]ENIPUNCTURE 12:00:00 AM [facility] Galindo, PC) Documentation of current 09/22/2019 MED GEN ([facility] (procedure) 12:00:00 AM [facility] aviles, PC) Documentation of current 09/22/2019 MED GEN ([facility] (procedure) 12:00:00 AM SAMPSON Cevallos) Documentation of current 09/22/2019 MED GEN ([facility] (procedure) 12:00:00 AM SAMPSON Cevallos) Documentation of current 09/22/2019 MED GEN ([facility] (procedure) 12:00:00 AM SAMPSON Cevallos) Documentation of current 09/22/2019 MED GEN ([facility] (procedure) 12:00:00 AM SAMPSON Cevallos) Documentation of current 09/22/2019 MED GEN ([facility] (procedure) 12:00:00 AM SAMPSON Cevallos) Documentation of current 09/22/2019 MED GEN ([facility] (procedure) 12:00:00 AM SAMPSON Cevallos) Documentation of current 09/22/2019 MED GEN ([facility] (procedure) 12:00:00 AM SAMPSON Cevallos) OFFICE OUTPATIENT VISIT 09/22/2019 MEDG EN ([facility] 25 MINUTES 12:00:00 AM SAMPSON Lobo) COLLECTION VENOUS BLOOD 09/22/2019 MEDG EN ([facility] VENIPUNCTURE 12:00:00 AM SAMPSON Lobo) Documentation of current 09/22/2019 MED GEN ([facility] (procedure) 12:00:00 AM SAMPSON Cevallos) Documentation of current 09/22/2019 MED GEN ([facility] (procedure) 12:00:00 AM SAMPSON Cevallos) Documentation of current 09/22/2019 MED GEN ([facility] (procedure) 12:00:00 AM SAMPSON Cevallos) Documentation of current 09/22/2019 MED GEN ([facility] (procedure) 12:00:00 AM SAMPSON Cevallos) Documentation of current 09/22/2019 MED GEN ([facility] (procedure) 12:00:00 AM SAMPSON Cevallos) Documentation of current 09/22/2019 MED GEN ([facility] (procedure) 12:00:00 AM SAMPSON Cevallos) Documentation of current 09/22/2019 MED GEN ([facility] (procedure) 12:00:00 AM MARILOU aviles, SAMPSON) Documentation of current 09/22/2019 MED GEN ([facility] (procedure) 12:00:00 AM [facility]iles, PC) OFFICE OUTPATIENT VISIT 09/22/2019 MEDG EN ([facility] 25 MINUTES 12:00:00 AM MARILOU Galindo, PC) COLLECTION VENOUS BLOOD 09/22/2019 MEDG EN ([facility] VENIPUNCTURE 12:00:00 AM MARILOU Galindo, PC) Documentation of current 09/22/2019 MED GEN ([facility] (procedure) 12:00:00 AM [facility]iles PC) Documentation of current 09/22/2019 MED GEN ([facility] (procedure) 12:00:00 AM [facility] PC) Documentation of current 09/22/2019 MED GEN ([facility] (procedure) 12:00:00 AM [facility] PC) Documentation of current 09/22/2019 MED GEN ([facility] (procedure) 12:00:00 AM [facility] PC) Documentation of current 09/22/2019 MED GEN ([facility] (procedure) 12:00:00 AM [facility], PC) Documentation of current 09/22/2019 MED GEN ([facility] (procedure) 12:00:00 AM [facility]iles PC) Documentation of current 09/22/2019 MED GEN ([facility] (procedure) 12:00:00 AM [facility] PC) Documentation of current 09/22/2019 MED GEN ([facility] (procedure) 12:00:00 AM [facility] PC) OFFICE OUTPATIENT VISIT 09/22/2019 MEDG EN ([facility] 25 MINUTES 12:00:00 AM [facility] Galindo, PC) COLLECTION VENOUS BLOOD 09/22/2019 MEDG EN ([facility] VENIPUNCTURE 12:00:00 AM MAR[facility] Galindo, PC) Documentation of current 09/22/2019 MED GEN ([facility] (procedure) 12:00:00 AM [facility]iles, PC) Documentation of current 09/22/2019 MED GEN ([facility] (procedure) 12:00:00 AM [facility] aviles, PC) Documentation of current 09/22/2019 MED GEN ([facility] (procedure) 12:00:00 AM MARILOU aviles, SAMPSON) Documentation of current 09/22/2019 MED GEN ([facility] (procedure) 12:00:00 AM SAMPSON Cevallos) Documentation of current 09/22/2019 MED GEN ([facility] (procedure) 12:00:00 AM SAMPSON Cevallos) Documentation of current 09/22/2019 MED GEN ([facility] (procedure) 12:00:00 AM SAMPSON Cevallos) Documentation of current 09/22/2019 MED GEN ([facility] (procedure) 12:00:00 AM MARILOU aviles, SAMPSON) Documentation of current 09/22/2019 MED GEN ([facility] (procedure) 12:00:00 AM SAMPSON Cevallos) OFFICE OUTPATIENT VISIT 09/22/2019 MEDG EN ([facility] 25 MINUTES 12:00:00 AM SAMPSON Lobo) COLLECTION VENOUS BLOOD 09/22/2019 MEDG EN ([facility] VENIPUNCTURE 12:00:00 AM SAMPSON Lobo) Documentation of current 09/22/2019 MED GEN ([facility] (procedure) 12:00:00 AM MARILOU aviles, SAMPSON) Documentation of current 09/22/2019 MED GEN ([facility] (procedure) 12:00:00 AM SAMPSON Cevallos) Documentation of current 09/22/2019 MED GEN ([facility] (procedure) 12:00:00 AM SAMPSON Cevallos) Documentation of current 09/22/2019 MED GEN ([facility] (procedure) 12:00:00 AM SAMPSON Cevallos) Documentation of current 09/22/2019 MED GEN ([facility] (procedure) 12:00:00 AM [facility]iles, PC) Documentation of current 09/22/2019 MED GEN ([facility] (procedure) 12:00:00 AM [facility] PC) Documentation of current 09/22/2019 MED GEN ([facility] (procedure) 12:00:00 AM SAMPSON Cevallos) Documentation of current 09/22/2019 MED GEN ([facility] (procedure) 12:00:00 AM SAMPSON Cevallos) OFFICE OUTPATIENT VISIT 09/22/2019 MEDG EN ([facility] 25 MINUTES 12:00:00 AM [facility] Galindo, [facility]) COLLECTION VENOUS BLOOD 09/22/2019 MEDG EN ([facility]ENIPUNCTURE 12:00:00 AM [facility]) Documentation of current 09/22/2019 MED GEN ([facility] (procedure) 12:00:00 AM [facility] aviles, PC) Documentation of current 09/22/2019 MED GEN ([facility] (procedure) 12:00:00 AM [facility] aviles, PC) Documentation of current 09/22/2019 MED GEN ([facility] (procedure) 12:00:00 AM [facility] aviles, PC) Documentation of current 09/22/2019 MED GEN ([facility] (procedure) 12:00:00 AM MAR[facility] aviles, PC) Documentation of current 09/22/2019 MED GEN ([facility] (procedure) 12:00:00 AM MARIL[facility] aviles, PC) Documentation of current 09/22/2019 MED GEN ([facility] (procedure) 12:00:00 AM [facility] aviles, PC) Documentation of current 09/22/2019 MED GEN ([facility] (procedure) 12:00:00 AM [facility] aviles, PC) Documentation of current 09/22/2019 MED GEN ([facility] (procedure) 12:00:00 AM MARILOU aviles, SAMPSON) OFFICE OUTPATIENT VISIT 09/22/2019 MEDG EN ([facility] 25 MINUTES 12:00:00 AM MARILOU Galindo, PC) COLLECTION VENOUS BLOOD 09/22/2019 MEDG EN ([facility] VENIPUNCTURE 12:00:00 AM MARILOU Galindo, PC) Documentation of current 09/22/2019 MED GEN ([facility] (procedure) 12:00:00 AM [facility] aviles, PC) Documentation of current 09/22/2019 MED GEN ([facility] (procedure) 12:00:00 AM [facility] aviles, PC) Documentation of current 09/22/2019 MED GEN ([facility] (procedure) 12:00:00 AM [facility] aviles, PC) Documentation of current 09/22/2019 MED GEN ([facility] (procedure) 12:00:00 AM [facility] aviles, PC) Documentation of current 09/22/2019 MED GEN ([facility] (procedure) 12:00:00 AM [facility] aviles, PC) Documentation of current 09/22/2019 MED GEN ([facility] (procedure) 12:00:00 AM [facility] aviles, PC) Documentation of current 09/22/2019 MED GEN ([facility] (procedure) 12:00:00 AM [facility] aviles, PC) Documentation of current 09/22/2019 MED GEN ([facility] (procedure) 12:00:00 AM [facility] aviles, PC) OFFICE OUTPATIENT VISIT 09/22/2019 MEDG EN ([facility] 25 MINUTES 12:00:00 AM [facility], [facility]) COLLECTION VENOUS BLOOD 09/22/2019 MEDG EN ([facility] VENIPUNCTURE 12:00:00 AM [facility], [facility]) Documentation of current 09/22/2019 MED GEN ([facility] (procedure) 12:00:00 AM [facility] aviles, PC) Documentation of current 09/22/2019 MED GEN ([facility] (procedure) 12:00:00 AM [facility] aviles, PC) Documentation of current 09/22/2019 MED GEN ([facility] (procedure) 12:00:00 AM [facility] aviles, PC) Documentation of current 09/22/2019 MED GEN ([facility] (procedure) 12:00:00 AM [facility] aviles, PC) Documentation of current 09/22/2019 MED GEN ([facility] (procedure) 12:00:00 AM [facility] aviles, PC) Documentation of current 09/22/2019 MED GEN ([facility] (procedure) 12:00:00 AM [facility] aviles, PC) Documentation of current 09/22/2019 MED GEN ([facility] (procedure) 12:00:00 AM [facility] aviles, PC) Documentation of current 09/22/2019 MED GEN ([facility] (procedure) 12:00:00 AM [facility] aviles, PC) OFFICE OUTPATIENT VISIT 09/22/2019 MEDG EN ([facility] 25 MINUTES 12:00:00 AM [facility], [facility]) COLLECTION VENOUS BLOOD 09/22/2019 MEDG EN ([facility] VENIPUNCTURE 12:00:00 AM [facility], [facility]) Documentation of current 09/22/2019 MED GEN ([facility] (procedure) 12:00:00 AM MARILOU aviles, SAMPSON) Documentation of current 09/22/2019 MED GEN ([facility] (procedure) 12:00:00 AM SAMPSON Cevallos) Documentation of current 09/22/2019 MED GEN ([facility] (procedure) 12:00:00 AM [facility]iles, PC) Documentation of current 09/22/2019 MED GEN ([facility] (procedure) 12:00:00 AM MARILOU aviles, SAMPSON) Documentation of current 09/22/2019 MED GEN ([facility] (procedure) 12:00:00 AM [facility], PC) Documentation of current 09/22/2019 MED GEN ([facility] (procedure) 12:00:00 AM MARILOU aviles, SAMPSON) Documentation of current 09/22/2019 MED GEN ([facility] (procedure) 12:00:00 AM MARILOU aviles, SAMPSON) Documentation of current 09/22/2019 MED GEN ([facility] (procedure) 12:00:00 AM SAMPSON Cevallos) OFFICE OUTPATIENT VISIT 09/22/2019 MEDG EN ([facility] 25 MINUTES 12:00:00 AM MARILOU Galindo, SAMPSON) COLLECTION VENOUS BLOOD 09/22/2019 MEDG EN ([facility] VENIPUNCTURE 12:00:00 AM [facility] Galindo, PC) Documentation of current 09/01/2019 MED GEN ([facility] (procedure) 12:00:00 AM MARILOU aviles, SAMPSON) Documentation of current 09/01/2019 MED GEN ([facility] (procedure) 12:00:00 AM SAMPSON Cevallos) Documentation of current 09/01/2019 MED GEN ([facility] (procedure) 12:00:00 AM [facility], PC) Documentation of current 09/01/2019 MED GEN ([facility] (procedure) 12:00:00 AM [facility], PC) Documentation of current 09/01/2019 MED GEN ([facility] (procedure) 12:00:00 AM [facility]iles, PC) Documentation of current 09/01/2019 MED GEN ([facility] (procedure) 12:00:00 AM [facility] aviles, PC) Documentation of current 09/01/2019 MED GEN ([facility] (procedure) 12:00:00 AM MARILOU aviles, SAMPSON) Documentation of current 09/01/2019 MED GEN ([facility] (procedure) 12:00:00 AM SAMPSON Cevallos) Documentation of current 09/01/2019 MED GEN ([facility] (procedure) 12:00:00 AM [facility], PC) Documentation of current 09/01/2019 MED GEN ([facility] (procedure) 12:00:00 AM MARILOU aviles, SAMPSON) Documentation of current 09/01/2019 MED GEN ([facility] (procedure) 12:00:00 AM [facility], PC) Documentation of current 09/01/2019 MED GEN ([facility] (procedure) 12:00:00 AM MARILOU aviles, SAMPSON) Documentation of current 09/01/2019 MED GEN ([facility] (procedure) 12:00:00 AM [facility]iles, PC) Documentation of current 09/01/2019 MED GEN ([facility] (procedure) 12:00:00 AM MARILOU aviles, SAMPSON) Documentation of current 09/01/2019 MED GEN ([facility] (procedure) 12:00:00 AM MARILOU aviles, SAMPSON) Documentation of current 09/01/2019 MED GEN ([facility] (procedure) 12:00:00 AM SAMPSON Cevallos) Documentation of current 09/01/2019 MED GEN ([facility] (procedure) 12:00:00 AM SAMPSON Cevallos) Documentation of current 09/01/2019 MED GEN ([facility] (procedure) 12:00:00 AM [facility] PC) Documentation of current 09/01/2019 MED GEN ([facility] (procedure) 12:00:00 AM [facility], PC) Documentation of current 09/01/2019 MED GEN ([facility] (procedure) 12:00:00 AM [facility]iles, PC) Documentation of current 09/01/2019 MED GEN ([facility] (procedure) 12:00:00 AM [facility], PC) Documentation of current 09/01/2019 MED GEN ([facility] (procedure) 12:00:00 AM SAMPSON Cevallos) Documentation of current 09/01/2019 MED GEN ([facility] (procedure) 12:00:00 AM SAMPSON Cevallos) Documentation of current 09/01/2019 MED GEN ([facility] (procedure) 12:00:00 AM SAMPSON Cevallos) Documentation of current 09/01/2019 MED GEN ([facility] (procedure) 12:00:00 AM SAMPSON Cevallos) Documentation of current 09/01/2019 MED GEN ([facility] (procedure) 12:00:00 AM MARILOU aviles, SAMPSON) Documentation of current 09/01/2019 MED GEN ([facility] (procedure) 12:00:00 AM SAMPSON Cevallos) Documentation of current 09/01/2019 MED GEN ([facility] (procedure) 12:00:00 AM SAMPSON Cevallos) Documentation of current 09/01/2019 MED GEN ([facility] (procedure) 12:00:00 AM SAMPSON Cevallos) Documentation of current 09/01/2019 MED GEN ([facility] (procedure) 12:00:00 AM MARILOU aviles, SAMPSON) Documentation of current 09/01/2019 MED GEN ([facility] (procedure) 12:00:00 AM MARILOU aviles, SAMPSON) Documentation of current 09/01/2019 MED GEN ([facility] (procedure) 12:00:00 AM SAMPSON Cevallos) Documentation of current 09/01/2019 MED GEN ([facility] (procedure) 12:00:00 AM SAMPSON Cevallos) Documentation of current 09/01/2019 MED GEN ([facility] (procedure) 12:00:00 AM [facility]) Documentation of current 09/01/2019 MED GEN ([facility] (procedure) 12:00:00 AM [facility], PC) Documentation of current 09/01/2019 MED GEN ([facility] (procedure) 12:00:00 AM MARILOU aviles, SAMPSON) Documentation of current 09/01/2019 MED GEN ([facility] (procedure) 12:00:00 AM [facility], PC) Documentation of current 09/01/2019 MED GEN ([facility] (procedure) 12:00:00 AM [facility], PC) Documentation of current 09/01/2019 MED GEN ([facility] (procedure) 12:00:00 AM [facility], PC) Documentation of current 09/01/2019 MED GEN ([facility] (procedure) 12:00:00 AM [facility], PC) Documentation of current 09/01/2019 MED GEN ([facility] (procedure) 12:00:00 AM [facility], PC) Documentation of current 09/01/2019 MED GEN ([facility] (procedure) 12:00:00 AM [facility], PC) Documentation of current 09/01/2019 MED GEN ([facility] (procedure) 12:00:00 AM [facility], PC) Documentation of current 09/01/2019 MED GEN ([facility] (procedure) 12:00:00 AM [facility], PC) Documentation of current 09/01/2019 MED GEN ([facility] (procedure) 12:00:00 AM [facility], PC) Documentation of current 09/01/2019 MED GEN ([facility] (procedure) 12:00:00 AM [facility], PC) Documentation of current 09/01/2019 MED GEN ([facility] (procedure) 12:00:00 AM [facility], PC) Documentation of current 09/01/2019 MED GEN ([facility] (procedure) 12:00:00 AM [facility], PC) Documentation of current 09/01/2019 MED GEN ([facility] (procedure) 12:00:00 AM [facility], PC) Documentation of current 09/01/2019 MED GEN ([facility] (procedure) 12:00:00 AM [facility], PC) Documentation of current 09/01/2019 MED GEN ([facility] (procedure) 12:00:00 AM [facility], PC) Documentation of current 09/01/2019 MED GEN ([facility] (procedure) 12:00:00 AM [facility], PC) Documentation of current 09/01/2019 MED GEN ([facility] (procedure) 12:00:00 AM [facility], PC) Documentation of current 09/01/2019 MED GEN ([facility] (procedure) 12:00:00 AM SAMPSON Cevallos) Documentation of current 09/01/2019 MED GEN ([facility] medications (procedure) 12:00:00 AM SAMPSON Cevallos) Documentation of current 09/01/2019 MED GEN ([facility] (procedure) 12:00:00 AM SAMPSON Cevallos) Documentation of current 09/01/2019 MED GEN ([facility] (procedure) 12:00:00 AM SAMPSON Cevallos) Documentation of current 09/01/2019 MED GEN ([facility] (procedure) 12:00:00 AM SAMPSON Cevallos) Documentation of current 09/01/2019 MED GEN ([facility] (procedure) 12:00:00 AM SAMPSON Cevallos) Documentation of current 09/01/2019 MED GEN ([facility] (procedure) 12:00:00 AM SAMPSON Cevallos) Documentation of current 09/01/2019 MED GEN ([facility] (procedure) 12:00:00 AM SAMPSON Cevallos) Documentation of current 09/01/2019 MED GEN ([facility] (procedure) 12:00:00 AM SAMPSON Cevallos) Documentation of current 09/01/2019 MED GEN ([facility] medications (procedure) 12:00:00 AM SAMPSON Cevallos) Documentation of current 09/01/2019 MED GEN ([facility] medications (procedure) 12:00:00 AM SAMPSON Cevallos) Documentation of current 09/01/2019 MED GEN ([facility] (procedure) 12:00:00 AM SAMPSON Cevallos) Documentation of current 09/01/2019 MED GEN ([facility] medications (procedure) 12:00:00 AM SAMPSON Cevallos) Documentation of current 09/01/2019 MED GEN ([facility] (procedure) 12:00:00 AM SAMPSON Cevallos) Documentation of current 09/01/2019 MED GEN ([facility] medications (procedure) 12:00:00 AM SAMPSON Cevallos) Documentation of current 09/01/2019 MED GEN ([facility] medications (procedure) 12:00:00 AM MARILOU aviles, SAMPSON) Documentation of current 09/01/2019 MED GEN ([facility] medications (procedure) 12:00:00 AM MARILOU aviles, SAMPSON) Documentation of current 09/01/2019 MED GEN ([facility] medications (procedure) 12:00:00 AM SAMPSON Cevallos) Documentation of current 09/01/2019 MED GEN ([facility] medications (procedure) 12:00:00 AM MARILOU aviles, PC) Documentation of current 09/01/2019 MED GEN ([facility]'s medications (procedure) 12:00:00 AM MARILOU aviles, PC) Documentation of current 09/01/2019 MED GEN ([facility]'s medications (procedure) 12:00:00 AM MARILOU aviles, PC) Documentation of current 09/01/2019 MED GEN ([facility] medications (procedure) 12:00:00 AM MARILOU aviles, PC) Documentation of current 09/01/2019 MED GEN ([facility] medications (procedure) 12:00:00 AM MARILOU aviles, PC) Documentation of current 09/01/2019 MED GEN ([facility]'s medications (procedure) 12:00:00 AM MARILOU aviles, PC) Documentation of current 09/01/2019 MED GEN ([facility] medications (procedure) 12:00:00 AM MARILOU aviles, SAMPSON) Documentation of current 09/01/2019 MED GEN ([facility] medications (procedure) 12:00:00 AM MARILOU aviles, PC) Documentation of current 09/01/2019 MED GEN ([facility] medications (procedure) 12:00:00 AM MARILOU aviles, PC) Documentation of current 09/01/2019 MED GEN ([facility] medications (procedure) 12:00:00 AM MARILOU aviles, PC) Documentation of current 09/01/2019 MED GEN ([facility] medications (procedure) 12:00:00 AM MARILOU aviles, PC) Documentation of current 09/01/2019 MED GEN ([facility] medications (procedure) 12:00:00 AM MARILOU aviles, PC) Documentation of current 09/01/2019 MED GEN ([facility] medications (procedure) 12:00:00 AM MARILOU aviles, PC) Documentation of current 09/01/2019 MED GEN ([facility] medications (procedure) 12:00:00 AM EST Max aviles, ) Results ID Date Data Source [id number] 05/01/2020 12:00:00 AM EDT MEDGEN ([facility], ) Name Value Range Interpretation Code Description Data Supporting Source(s) Document(s ) Ferritin, 191 ng/mL Normal (applies to MEDGEN (St Serum non-numeric Juan C's results) [facility], ) ID Date Data Source [id number] 05/01/2020 12:00:00 AM EDT MEDGEN ([facility], ) Name Value Range Interpretation Description Data Sup porting Code Source(s) Document(s ) Deprecated 2.4 mg/dL Below low normal MEDGEN (St Phosphorus Juan C's [Mass/time] in [facility], ) 24 hour Urine ID Date Data Source [id number] 05/01/2020 12:00:00 AM EDT MEDGEN ([facility], ) Name Value Range Interpretation Description Data Sup porting Code Source(s) Document(s ) Vitamin D, 29.4 Below low normal MEDGEN (St 25-Hydroxy ng/mL [facility], ) ID Date Data Source [id number] 05/01/2020 12:00:00 AM EDT MEDGEN ([facility], ) Name Value Range Interpretation Code Description Data Supporting Source(s) Document(s ) Creatinine 77.9 mg/dL Normal (applies to MEDGEN (S t , Urine non-numeric Juan C's results) [facility], ) Protein,To 227.0 Normal (applies to MEDGEN (St ruth,Urine mg/dL non-numeric Juan C's results) [facility], ) Protein/Cr 2914 mg/g Above high normal MEDGEN (St eat Ratio creat [facility], ) ID Date Data Source [id number] 05/01/2020 12:00:00 AM EDT MEDGEN ([facility], ) Name Value Range Interpretation Description Data Sup porting Code Source(s) Document(s ) Iron 270 ug/dL Normal (applies to MEDGEN (St Bind.Cap.(TIBC non-numeric Juan C's ) results) [facility], ) UIBC 231 ug/dL Normal (applies to MEDGEN (St non-numeric Juan C's results) Medical, PC) Iron 39 ug/dL Normal (applies to MEDGEN (St [Mass/volume] non-numeric Juan C's in Serum or results) Medical, PC) Plasma Iron 14 % Below low normal MEDGEN (St saturation [facility]'s [[facility]) Fraction] in Serum or Plasma ID Date Data Source [id number] 05/01/2020 12:00:00 AM EDT MEDGEN ([facility]) Name Value Range Interpretation Description Data Sup porting Code Source(s) Document(s ) Specific gravity 1.015 Normal (applies MEDGEN (St of Pericardial to non-numeric Juan C's fluid by results) Medical, Refractometry PC) pH of Lower 7.0 Normal (applies MEDGEN (St respiratory to non-numeric Juan C's specimen results) [facility], [facility]) Urine-Color Yellow Normal (applies MEDGEN (St to non-numeric Juan C's results) [facility], [facility]) Appearance of Clear Normal (applies MEDGEN (St Abdomen to non-numeric Juan C's results) [facility], PC) WBC Esterase Negative Normal (applies MEDGEN (St to non-numeric [facility]'s results) [facility], PC) Protein Abnormal MEDGEN (St [Mass/volume] in (applies to Juan C's Lower non-numeric Medical, respiratory results) PC) specimen Glucose Negative Normal (applies MEDGEN (St [Mass/volume] in to non-numeric Juan C's Urine collected results) Medical, for unspecified PC) duration Ketones Negative Normal (applies MEDGEN (St [Presence] in to non-numeric Juan C's Blood by Tablet results) Medical, PC) Occult Blood Abnormal MEDGEN (St (applies to Juan C's non-numeric Medical, results) PC) Bilirubin Negative Normal (applies MEDGEN (St [Presence] in to non-numeric Juan C's Peritoneal fluid results) Medical, PC) Urobilinogen,Mel 0.2 mg/dL Normal (applies MEDGEN (St i-Qn to non-numeric Juan C's results) [facility], PC) Nitrite, Urine Negative Normal (applies MEDGEN (S t to non-numeric Juan C's results) [facility], PC) Microscopic See below: Normal (applies MEDGEN (St Examination to non-numeric Juan C's results) [facility], PC) ID Date Data Source [id number] 05/01/2020 12:00:00 AM EDT MEDGEN ([facility], ) Name Value Range Interpretation Description Data Sup porting Code Source(s) Document(s ) WBC 0-5 Normal (applies MEDGEN (St to non-numeric Juan C's results) [facility], ) RBC 3-10 Abnormal (applies MEDGEN (St to non-numeric Juan C's results) [facility], ) Epithelial 0-10 Normal (applies MEDGEN (St Cells (non to non-numeric Juan C's renal) results) Medical, ) Mucus Threads Present Normal (applies MEDGEN (St to non-numeric Juan C's results) [facility], ) Bacteria None seen Normal (applies MEDGEN (St [Presence] in to non-numeric Juan C's Prostatic results) [facility], ) fluid by Light microscopy ID Date Data Source [id number] 05/01/2020 12:00:00 AM EDT MEDGEN ([facility], ) Name Value Range Interpretation Description Data Sup porting Code Source(s) Document(s ) Glucose 90 mg/dL Normal (applies MEDGEN (St [Mass/volume] in to non-numeric Juan C's Urine collected for results) [facility], unspecified PC) duration Urea nitrogen 37 mg/dL Above high MEDGEN (St [Mass/volume] in normal Juan C's Serum or Plasma [facility], ) Creatinine 4.28 Above high MEDGEN (St [Interpretation] in mg/dL normal Juan C's Urine [facility], ) eGFR If NonAfricn 13 Below low normal MEDGE N (St Am mL/min/1 [facility]'s [address] [place] [address], ) eGFR If Africn Am 15 Below low normal MEDGE N (St mL/min/1 [facility] .73 [facility], ) BUN/Creatinine 9 Below low normal MEDGEN ( St Ratio [facility], ) Sodium 138 Normal (applies MEDGEN (St [Moles/volume] in mmol/L to non-numeric Juan C's Serum or Plasma results) [facility], ) Potassium 5.1 Normal (applies MEDGEN (St [Mass/volume] in mmol/L to non-numeric Juan C's Blood results) [facility], ) Chloride 108 Above high MEDGEN (St [Moles/volume] in mmol/L normal Juan C's Serum or Plasma [facility], ) Carbon dioxide, 19 Below low normal MEDGEN (St total mmol/L Juan C's [Moles/volume] in Medical, Serum or Plasma PC) Calcium 7.4 Below low normal MEDGEN (St [Moles/volume] in mg/dL Juan C's Urine collected for Medical, unspecified PC) duration Protein 8.5 g/dL Normal (applies MEDGEN (St [Mass/volume] in to non-numeric Juan C's Serum or Plasma results) Medical, ) Microalbumin 3.8 g/dL Normal (applies MEDGEN (St [Mass/time] in to non-numeric Juan C's Urine collected for results) Medical, unspecified ) duration Globulin, Total 4.7 g/dL Above high MEDGEN (St normal [facility], ) A/G Ratio 0.8 Below low normal MEDGEN ([facility], ) Bilirubin.total 0.4 Normal (applies MEDGEN ( St [Mass/volume] in mg/dL to non-numeric Juan C's Serum or Plasma results) Medical, ) Alkaline 86 IU/L Normal (applies MEDGEN (St phosphatase to non-numeric Juan C's [Enzymatic results) Medical, activity/volume] in ) Serum, Plasma or Blood Aspartate 37 IU/L Normal (applies MEDGEN (St aminotransferase to non-numeric Juan C's [Enzymatic results) Medical, activity/volume] in ) Serum or Plasma Alanine 43 IU/L Normal (applies MEDGEN (St aminotransferase to non-numeric Juan C's [Enzymatic results) Medical, activity/volume] in ) Serum or Plasma ID Date Data Source [id number] 05/01/2020 12:00:00 AM EDT MEDGEN ([facility], ) Name Value Range Interpretation Description Data Sup porting Code Source(s) Document(s ) Leukocytes 13.3 Above high normal MEDGEN (St [#/volume] in x10E3/uL Juan C's Blood by [facility], ) Automated count Erythrocytes 2.72 Below lower panic MEDGEN (S t [#/volume] in x10E6/uL limits Juan C's Blood by [facility], ) Automated count Hemoglobin 9.1 g/dL Below low normal MEDGEN (St [Mass/volume] in Juan C's Blood [facility], ) Hematocrit 27.8 % Below low normal MEDGEN (St [Volume Juan C's Fraction] of [facility], ) Blood by Automated count MCV 102 fL Above high normal MEDGEN ([facility], ) MCH 33.5 pg Above high normal MEDGEN ([facility], ) MCHC 32.7 Normal (applies MEDGEN (St g/dL to non-numeric Juan C's results) [facility]) RDW 18.4 % Above high normal MEDGEN ([facility], ) Platelets 230 Normal (applies MEDGEN (St [#/area] in x10E3/uL to non-numeric Juan C's Blood by results) [facility]) Microscopy high power field Neutrophils [#] 49 % Normal (applies MEDGEN ( St in Body fluid by to non-numeric Juan C's Manual count results) [facility]) Lymphs 33 % Normal (applies MEDGEN (St to non-numeric Juan C's results) [facility]) Monocytes 8 % Normal (applies MEDGEN (St [#/volume] in to non-numeric Juan C's Cord blood results) [facility]) Eos 4 % Normal (applies MEDGEN (St to non-numeric Juan C's results) [facility]) Basos 0 % Normal (applies MEDGEN (St to non-numeric Juan C's results) [facility]) Immature cells Note Normal (applies MEDGEN (S t [#/volume] in to non-numeric Juan C's Blood results) [facility]) Neutrophils 6.5 Normal (applies MEDGEN (St (Absolute) x10E3/uL to non-numeric Juan C's results) [facility]) Lymphs 4.4 Above high normal MEDGEN (St (Absolute) x10E3/uL [facility]) Monocytes(Absolu 1.1 Above high normal MEDGE N (St te) x10E3/uL [facility]) Eos (Absolute) 0.5 Above high normal MEDGEN (St x10E3/uL Juan C's [facility]) Baso (Absolute) 0.0 Normal (applies MEDGEN ( St x10E3/uL to non-numeric Juan C's results) [facility]) NRBC 8 % Above high normal MEDGEN ([facility], ) Hematology Note: Normal (applies MEDGEN (St Comments: to non-numeric Juan C's results) [facility]) ID Date Data Source [id number] 05/01/2020 12:00:00 AM EDT MEDGEN ([facility], ) Name Value Range Interpretation Description Data Sup porting Code Source(s) Document(s ) Metamyelocytes [#] 2 % Above high normal MED GEN (St in Body fluid by [facility] Manual count [facility], ) Myelocytes [#] in 4 % Above high normal MEDG EN (St Body fluid by [facility] Manual count [facility], ) ID Date Data Source [id number] 05/01/2020 12:00:00 AM EDT MEDGEN ([facility], ) Name Value Range Interpretation Code Description Data Supporting Source(s) Document(s ) Ferritin, 191 ng/mL Normal (applies to MEDGEN (St Serum non-numeric Juan C's results) [facility], ) ID Date Data Source [id number] 05/01/2020 12:00:00 AM EDT MEDGEN ([facility], ) Name Value Range Interpretation Description Data Sup porting Code Source(s) Document(s ) Deprecated 2.4 mg/dL Below low normal MEDGEN (St Phosphorus Juan C's [Mass/time] in [facility], ) 24 hour Urine ID Date Data Source [id number] 05/01/2020 12:00:00 AM EDT MEDGEN ([facility], ) Name Value Range Interpretation Description Data Sup porting Code Source(s) Document(s ) Vitamin D, 29.4 Below low normal MEDGEN (St 25-Hydroxy ng/mL [facility], ) ID Date Data Source [id number] 05/01/2020 12:00:00 AM EDT MEDGEN ([facility], ) Name Value Range Interpretation Code Description Data Supporting Source(s) Document(s ) Creatinine 77.9 mg/dL Normal (applies to MEDGEN (S t , Urine non-numeric Juan C's results) [facility], ) Protein,To 227.0 Normal (applies to MEDGEN (St ruth,Urine mg/dL non-numeric Juan C's results) [facility], ) Protein/Cr 2914 mg/g Above high normal MEDGEN (St eat Ratio creat [facility], ) ID Date Data Source [id number] 05/01/2020 12:00:00 AM EDT MEDGEN ([facility], ) Name Value Range Interpretation Description Data Sup porting Code Source(s) Document(s ) Iron 270 ug/dL Normal (applies to MEDGEN (St Bind.Cap.(TIBC non-numeric Juan C's ) results) Medical, PC) UIBC 231 ug/dL Normal (applies to MEDGEN (St non-numeric Juan C's results) Medical, PC) Iron 39 ug/dL Normal (applies to MEDGEN (St [Mass/volume] non-numeric Juan C's in Serum or results) Medical, PC) Plasma Iron 14 % Below low normal MEDGEN (St saturation Juan C's [[facility], [facility]) Fraction] in Serum or Plasma ID Date Data Source [id number] 05/01/2020 12:00:00 AM EDT MEDGEN ([facility]) Name Value Range Interpretation Description Data Sup porting Code Source(s) Document(s ) Specific gravity 1.015 Normal (applies MEDGEN (St of Pericardial to non-numeric Juan C's fluid by results) Medical, Refractometry PC) pH of Lower 7.0 Normal (applies MEDGEN (St respiratory to non-numeric Juan C's specimen results) Medical, PC) Urine-Color Yellow Normal (applies MEDGEN (St to non-numeric Juan C's results) Medical, PC) Appearance of Clear Normal (applies MEDGEN (St Abdomen to non-numeric Juan C's results) Medical, PC) WBC Esterase Negative Normal (applies MEDGEN (St to non-numeric Juan C's results) Medical, PC) Protein Abnormal MEDGEN (St [Mass/volume] in (applies to Juan C's Lower non-numeric Medical, respiratory results) PC) specimen Glucose Negative Normal (applies MEDGEN (St [Mass/volume] in to non-numeric Juan C's Urine collected results) Medical, for unspecified PC) duration Ketones Negative Normal (applies MEDGEN (St [Presence] in to non-numeric Juan C's Blood by Tablet results) Medical, PC) Occult Blood Abnormal MEDGEN (St (applies to Juan C's non-numeric Medical, results) PC) Bilirubin Negative Normal (applies MEDGEN (St [Presence] in to non-numeric Juan C's Peritoneal fluid results) Medical, PC) Urobilinogen,Mel 0.2 mg/dL Normal (applies MEDGEN (St i-Qn to non-numeric Juan C's results) Medical, PC) Nitrite, Urine Negative Normal (applies MEDGEN (S t to non-numeric Juan C's results) Medical, PC) Microscopic See below: Normal (applies MEDGEN (St Examination to non-numeric Juan C's results) Medical, ) ID Date Data Source [id number] 05/01/2020 12:00:00 AM EDT MEDGEN ( [facility], ) Name Value Range Interpretation Description Data Sup porting Code Source(s) Document(s ) WBC 0-5 Normal (applies MEDGEN (St to non-numeric Juan C's results) Medical, PC) RBC 3-10 Abnormal (applies MEDGEN (St to non-numeric Juan C's results) Medical, PC) Epithelial 0-10 Normal (applies MEDGEN (St Cells (non to non-numeric Juan C's renal) results) Medical, ) Mucus Threads Present Normal (applies MEDGEN (St to non-numeric Juan C's results) Medical, ) Bacteria None seen Normal (applies MEDGEN (St [Presence] in to non-numeric Juan C's Prostatic results) Medical, ) fluid by Light microscopy ID Date Data Source [id number] 05/01/2020 12:00:00 AM EDT MEDGEN ([facility], ) Name Value Range Interpretation Description Data Sup porting Code Source(s) Document(s ) Glucose 90 mg/dL Normal (applies MEDGEN (St [Mass/volume] in to non-numeric Juan C's Urine collected for results) Medical, unspecified PC) duration Urea nitrogen 37 mg/dL Above high MEDGEN (St [Mass/volume] in normal Juan C's Serum or Plasma Medical, ) Creatinine 4.28 Above high MEDGEN (St [Interpretation] in mg/dL normal Juan C's Urine Medical, ) eGFR If NonAfricn 13 Below low normal MEDGE N (St Am mL/min/1 Juan C's .73 Medical, ) eGFR If Africn Am 15 Below low normal MEDGE N (St mL/min/1 Juan C's .73 Medical, ) BUN/Creatinine 9 Below low normal MEDGEN ( St Ratio [facility], ) Sodium 138 Normal (applies MEDGEN (St [Moles/volume] in mmol/L to non-numeric Juan C's Serum or Plasma results) Medical, PC) Potassium 5.1 Normal (applies MEDGEN (St [Mass/volume] in mmol/L to non-numeric Juan C's Blood results) Medical, PC) Chloride 108 Above high MEDGEN (St [Moles/volume] in mmol/L normal Juan C's Serum or Plasma [facility], ) Carbon dioxide, 19 Below low normal MEDGEN (St total mmol/L Juan C's [Moles/volume] in Medical, Serum or Plasma PC) Calcium 7.4 Below low normal MEDGEN (St [Moles/volume] in mg/dL Juan C's Urine collected for Medical, unspecified ) duration Protein 8.5 g/dL Normal (applies MEDGEN (St [Mass/volume] in to non-numeric Juan C's Serum or Plasma results) [facility], ) Microalbumin 3.8 g/dL Normal (applies MEDGEN (St [Mass/time] in to non-numeric Juan C's Urine collected for results) Medical, unspecified ) duration Globulin, Total 4.7 g/dL Above high MEDGEN (St normal [facility], ) A/G Ratio 0.8 Below low normal MEDGEN ([facility], ) Bilirubin.total 0.4 Normal (applies MEDGEN ( St [Mass/volume] in mg/dL to non-numeric Juan C's Serum or Plasma results) [facility], ) Alkaline 86 IU/L Normal (applies MEDGEN (St phosphatase to non-numeric Juan C's [Enzymatic results) Medical, activity/volume] in ) Serum, Plasma or Blood Aspartate 37 IU/L Normal (applies MEDGEN (St aminotransferase to non-numeric Juan C's [Enzymatic results) Medical, activity/volume] in ) Serum or Plasma Alanine 43 IU/L Normal (applies MEDGEN (St aminotransferase to non-numeric Juan C's [Enzymatic results) Medical, activity/volume] in ) Serum or Plasma ID Date Data Source [id number] 05/01/2020 12:00:00 AM EDT MEDGEN (St [facility], ) Name Value Range Interpretation Description Data Sup porting Code Source(s) Document(s ) Leukocytes 13.3 Above high normal MEDGEN (St [#/volume] in x10E3/uL Juan C's Blood by [facility], ) Automated count Erythrocytes 2.72 Below lower panic MEDGEN (S t [#/volume] in x10E6/uL limits [facility] Blood by [facility], ) Automated count Hemoglobin 9.1 g/dL Below low normal MEDGEN (St [Mass/volume] in [facility] Blood [facility] Hematocrit 27.8 % Below low normal MEDGEN (St [Volume Juan C's Fraction] of [facility]) Blood by Automated count MCV 102 fL Above high normal MEDGEN ([facility], ) MCH 33.5 pg Above high normal MEDGEN ([facility], ) MCHC 32.7 Normal (applies MEDGEN (St g/dL to non-numeric Juan C's results) [facility]) RDW 18.4 % Above high normal MEDGEN ([facility], ) Platelets 230 Normal (applies MEDGEN (St [#/area] in x10E3/uL to non-numeric Juan C's Blood by results) [facility]) Microscopy high power field Neutrophils [#] 49 % Normal (applies MEDGEN ( St in Body fluid by to non-numeric Jaun C's Manual count results) [facility]) Monocytes 8 % Normal (applies MEDGEN (St [#/volume] in to non-numeric Juan C's Cord blood results) [facility]) Lymphs 33 % Normal (applies MEDGEN (St to non-numeric Juan C's results) [facility]) Eos 4 % Normal (applies MEDGEN (St to non-numeric Juan C's results) [facility]) Basos 0 % Normal (applies MEDGEN (St to non-numeric Juan C's results) [facility]) Immature cells Note Normal (applies MEDGEN (S t [#/volume] in to non-numeric Juan C's Blood results) [facility]) Neutrophils 6.5 Normal (applies MEDGEN (St (Absolute) x10E3/uL to non-numeric Juan C's results) [facility]) Lymphs 4.4 Above high normal MEDGEN (St (Absolute) x10E3/uL Juan C's [facility]) Eos (Absolute) 0.5 Above high normal MEDGEN (St x10E3/uL Juan C's [facility], ) Monocytes(Absolu 1.1 Above high normal MEDGE N (St te) x10E3/uL Juan C's [facility]) Baso (Absolute) 0.0 Normal (applies MEDGEN ( St x10E3/uL to non-numeric Juan C's results) [facility]) NRBC 8 % Above high normal MEDGEN ([facility], ) Hematology Note: Normal (applies MEDGEN (St Comments: to non-numeric Juan C's results) [facility]) ID Date Data Source [id number] 05/01/2020 12:00:00 AM EDT MEDGEN ([facility], ) Name Value Range Interpretation Description Data Sup porting Code Source(s) Document(s ) Metamyelocytes [#] 2 % Above high normal MED GEN (St in Body fluid by [facility] Manual count [facility], ) Myelocytes [#] in 4 % Above high normal MEDG EN (St Body fluid by [facility] Manual count [facility], ) ID Date Data Source [id number] 05/01/2020 12:00:00 AM EDT MEDGEN ([facility], ) Name Value Range Interpretation Code Description Data Supporting Source(s) Document(s ) Ferritin, 191 ng/mL Normal (applies to MEDGEN (St Serum non-numeric Juan C's results) [facility], ) ID Date Data Source [id number] 05/01/2020 12:00:00 AM EDT MEDGEN ([facility], ) Name Value Range Interpretation Description Data Sup porting Code Source(s) Document(s ) Deprecated 2.4 mg/dL Below low normal MEDGEN (St Phosphorus Juan C's [Mass/time] in Medical, ) 24 hour Urine ID Date Data Source [id number] 05/01/2020 12:00:00 AM EDT [facility] ([facility], ) Name Value Range Interpretation Description Data Sup porting Code Source(s) Document(s ) Vitamin D, 29.4 Below low normal MED[facility] (St 25-Hydroxy ng/mL [facility], ) ID Date Data Source [id number] 05/01/2020 12:00:00 AM EDT [facility] ([facility], ) Name Value Range Interpretation Code Description Data Supporting Source(s) Document(s ) Creatinine 77.9 mg/dL Normal (applies to [facility] (S t , Urine non-numeric Juan [facility]'s results) Medical, ) Protein,To 227.0 Normal (applies to [facility] (St ruth,Urine mg/dL non-numeric [facility]'s results) Medical, ) Protein/Cr 2914 mg/g Above high normal [facility] (St eat Ratio creat [facility], ) ID Date Data Source [id number] 05/01/2020 12:00:00 AM EDT [facility] ([facility] Name Value Range Interpretation Description Data Sup porting Code Source(s) Document(s ) Specific gravity 1.015 Normal (applies [facility] (St of Pericardial to non-numeric Juan C's fluid by results) Medical, Refractometry PC) pH of Lower 7.0 Normal (applies [facility] (St respiratory to non-numeric [facility]'s specimen results) [facility], [facility]) Appearance of Clear Normal (applies [facility] (St Abdomen to non-numeric [facility]'s results) [facility], PC) Urine-Color Yellow Normal (applies [facility] (St to non-numeric [facility] results) Medical, PC) WBC Esterase Negative Normal (applies [facility] (St to non-numeric [facility] results) [facility], PC) Protein Abnormal [facility] (St [Mass/volume] in (applies to [facility]'s Lower non-numeric Medical, respiratory results) PC) specimen Glucose Negative Normal (applies [facility] (St [Mass/volume] in to non-numeric Juan [facility]'s Urine collected results) Medical, for unspecified PC) duration Ketones Negative Normal (applies [facility] (St [Presence] in to non-numeric Juan [facility]'s Blood by Tablet results) Medical, PC) Occult Blood Abnormal [facility] (St (applies to Juan C's non-numeric Medical, results) PC) Bilirubin Negative Normal (applies [facility] (St [Presence] in to non-numeric [facility]'s Peritoneal fluid results) Medical, PC) Urobilinogen,Mel 0.2 mg/dL Normal (applies [facility] (St i-Qn to non-numeric [facility]'s results) Medical, PC) Nitrite, Urine Negative Normal (applies [facility] (S t to non-numeric [facility] results) Medical, PC) Microscopic See below: Normal (applies [facility] (St Examination to non-numeric [facility] results) [facility], [facility]) ID Date Data Source [id number] 05/01/2020 12:00:00 AM EDT [facility] ([facility] Name Value Range Interpretation Description Data Sup porting Code Source(s) Document(s ) Glucose 90 mg/dL Normal (applies [facility] (St [Mass/volume] in to non-numeric [facility] Urine collected for results) Medical, unspecified PC) duration Urea nitrogen 37 mg/dL Above high [facility] (St [Mass/volume] in normal Juan [facility]'s Serum or Plasma Medical, PC) eGFR If NonAfricn 13 Below low normal MEDGE N (St Am mL/min/1 [facility] [address], ) Creatinine 4.28 Above high [facility] (St [Interpretation] in mg/dL normal Juan C's Urine [facility], ) eGFR If Africn Am 15 Below low normal MEDGE N (St mL/min/1 [facility] .73 [facility], ) BUN/Creatinine 9 Below low normal [facility] ( St Ratio [facility], ) Sodium 138 Normal (applies [facility] (St [Moles/volume] in mmol/L to non-numeric Juan C's Serum or Plasma results) [facility], ) Potassium 5.1 Normal (applies [facility] (St [Mass/volume] in mmol/L to non-numeric Juan [facility]'s Blood results) [facility], ) Chloride 108 Above high [facility] (St [Moles/volume] in mmol/L normal Juan C's Serum or Plasma [facility], ) Carbon dioxide, 19 Below low normal [facility] (St total mmol/L Juan C's [Moles/volume] in Medical, Serum or Plasma PC) Calcium 7.4 Below low normal [facility] (St [Moles/volume] in mg/dL [facility]'s Urine collected for Medical, unspecified PC) duration Protein 8.5 g/dL Normal (applies [facility] (St [Mass/volume] in to non-numeric Juan C's Serum or Plasma results) [facility], ) Microalbumin 3.8 g/dL Normal (applies [facility] (St [Mass/time] in to non-numeric [facility]'s Urine collected for results) Medical, unspecified PC) duration Globulin, Total 4.7 g/dL Above high [facility] (St normal [facility], ) A/G Ratio 0.8 Below low normal [facility] ([facility], ) Bilirubin.total 0.4 Normal (applies [facility] ( St [Mass/volume] in mg/dL to non-numeric Juan [facility]'s Serum or Plasma results) Medical, ) Alkaline 86 IU/L Normal (applies [facility] (St phosphatase to non-numeric Juan C's [Enzymatic results) Medical, activity/volume] in PC) Serum, Plasma or Blood Aspartate 37 IU/L Normal (applies [facility] (St aminotransferase to non-numeric Juan C's [Enzymatic results) Medical, activity/volume] in PC) Serum or Plasma Alanine 43 IU/L Normal (applies [facility] (St aminotransferase to non-numeric Juan C's [Enzymatic results) [facility], activity/volume] in ) Serum or Plasma ID Date Data Source [id number] 05/01/2020 12:00:00 AM EDT [facility] ([facility], ) Name Value Range Interpretation Description Data Sup porting Code Source(s) Document(s ) Leukocytes 13.3 Above high normal [facility] (St [#/volume] in x10E3/uL Juan [facility]'s Blood by [facility]) Automated count Erythrocytes 2.72 Below lower panic [facility] (S t [#/volume] in x10E6/uL limits Juan [facility]'s Blood by [facility]) Automated count Hemoglobin 9.1 g/dL Below low normal [facility] (St [Mass/volume] in Juan C's Blood [facility]) Hematocrit 27.8 % Below low normal [facility] (St [Volume Juan C's Fraction] of [facility]) Blood by Automated count MCV 102 fL Above high normal [facility] ([facility], ) MCH 33.5 pg Above high normal [facility] ([facility], ) MCHC 32.7 Normal (applies [facility] (St g/dL to non-numeric Juan [facility]'s results) [facility]) RDW 18.4 % Above high normal [facility] ([facility], ) Platelets 230 Normal (applies [facility] (St [#/area] in x10E3/uL to non-numeric Juan [facility]'s Blood by results) [facility]) Microscopy high power field Neutrophils [#] 49 % Normal (applies [facility] ( St in Body fluid by to non-numeric Juan C's Manual count results) [facility]) Lymphs 33 % Normal (applies [facility] (St to non-numeric [facility]'s results) [facility]) Monocytes 8 % Normal (applies [facility] (St [#/volume] in to non-numeric [facility]'s Cord blood results) [facility]) Eos 4 % Normal (applies [facility] (St to non-numeric [facility]'s results) [facility]) Basos 0 % Normal (applies [facility] (St to non-numeric [facility]'s results) [facility]) Immature cells Note Normal (applies [facility] (S t [#/volume] in to non-numeric [facility] Blood results) [facility]) Neutrophils 6.5 Normal (applies [facility] (St (Absolute) x10E3/uL to non-numeric [facility]'s results) Medical, ) Lymphs 4.4 Above high normal [facility] (St (Absolute) x10E3/uL [facility], ) Monocytes(Absolu 1.1 Above high normal MEDGE N (St te) x10E3/uL [facility], ) Eos (Absolute) 0.5 Above high normal [facility] (St x10E3/uL [facility], ) Baso (Absolute) 0.0 Normal (applies [facility] ( St x10E3/uL to non-numeric [facility] results) Medical, ) NRBC 8 % Above high normal [facility] ([facility], ) Hematology Note: Normal (applies [facility] (St Comments: to non-numeric Juan C's results) [facility], ) ID Date Data Source [id number] 05/01/2020 12:00:00 AM EDT [facility] ([facility], ) Name Value Range Interpretation Description Data Sup porting Code Source(s) Document(s ) Myelocytes [#] in 4 % Above high normal MEDG EN (St Body fluid by Juan C's Manual count [facility], ) Metamyelocytes [#] 2 % Above high normal MED GEN (St in Body fluid by Juan C's Manual count [facility], ) ID Date Data Source [id number] 05/01/2020 12:00:00 AM EDT [facility] ([facility], ) Name Value Range Interpretation Code Description Data Supporting Source(s) Document(s ) Ferritin, 191 ng/mL Normal (applies to [facility] (St Serum non-numeric [facility] results) Medical, ) ID Date Data Source [id number] 05/01/2020 12:00:00 AM EDT [facility] ([facility], ) Name Value Range Interpretation Description Data Sup porting Code Source(s) Document(s ) Deprecated 2.4 mg/dL Below low normal [facility] (St Phosphorus Juan C's [Mass/time] in Medical, ) 24 hour Urine ID Date Data Source [id number] 05/01/2020 12:00:00 AM EDT [facility] ([facility], ) Name Value Range Interpretation Description Data Sup porting Code Source(s) Document(s ) Vitamin D, 29.4 Below low normal [facility] (St 25-Hydroxy ng/mL [facility], ) ID Date Data Source [id number] 05/01/2020 12:00:00 AM EDT [facility] ([facility], ) Name Value Range Interpretation Code Description Data Supporting Source(s) Document(s ) Creatinine 77.9 mg/dL Normal (applies to [facility] (S t , Urine non-numeric [facility]'s results) [facility], ) Protein,To 227.0 Normal (applies to [facility] (St ruth,Urine mg/dL non-numeric Juan C's results) [facility], ) Protein/Cr 2914 mg/g Above high normal [facility] (St eat Ratio creat [facility], ) ID Date Data Source [id number] 05/01/2020 12:00:00 AM EDT [facility], ) Name Value Range Interpretation Description Data Sup porting Code Source(s) Document(s ) Iron 270 ug/dL Normal (applies to [facility] (St Bind.Cap.(TIBC non-numeric Juan C's ) results) [facility], ) UIBC 231 ug/dL Normal (applies to [facility] (St non-numeric Juanc 's results) [facility], ) Iron 39 ug/dL Normal (applies to [facility] (St [Mass/volume] non-numeric Juan C's in Serum or results) [facility], ) Plasma Iron 14 % Below low normal [facility] (St saturation Juan C's [Mass [facility], ) Fraction] in Serum or Plasma ID Date Data Source [id number] 05/01/2020 12:00:00 AM EDT [facility] ([facility], ) Name Value Range Interpretation Description Data Sup porting Code Source(s) Document(s ) Specific gravity 1.015 Normal (applies [facility] (St of Pericardial to non-numeric [facility]'s fluid by results) Medical, Refractometry ) pH of Lower 7.0 Normal (applies [facility] (St respiratory to non-numeric Juan C's specimen results) [facility], ) Urine-Color Yellow Normal (applies [facility] (St to non-numeric [facility] C's results) [facility], ) Appearance of Clear Normal (applies [facility] (St Abdomen to non-numeric Juan C's results) [facility], ) WBC Esterase Negative Normal (applies [facility] (St to non-numeric [facility]'s results) Medical, ) Protein Abnormal [facility] (St [Mass/volume] in (applies to Juan C's Lower non-numeric Medical, respiratory results) ) specimen Glucose Negative Normal (applies [facility] (St [Mass/volume] in to non-numeric Juan C's Urine collected results) [facility], for unspecified PC) duration Ketones Negative Normal (applies [facility] (St [Presence] in to non-numeric Juan C's Blood by Tablet results) Medical, ) Occult Blood Abnormal [facility] (St (applies to Juan C's non-numeric Medical, results) PC) Bilirubin Negative Normal (applies [facility] (St [Presence] in to non-numeric Juan C's Peritoneal fluid results) Medical, ) Urobilinogen,Mel 0.2 mg/dL Normal (applies [facility] (St i-Qn to non-numeric Juan C's results) Medical, ) Nitrite, Urine Negative Normal (applies [facility] (S t to non-numeric Juan C's results) Medical, ) Microscopic See below: Normal (applies [facility] (St Examination to non-numeric Juan C's results) Medical, ) ID Date Data Source [id number] 05/01/2020 12:00:00 AM EDT [facility] ([facility], ) Name Value Range Interpretation Description Data Sup porting Code Source(s) Document(s ) WBC 0-5 Normal (applies [facility] (St to non-numeric Juan C's results) Medical, ) RBC 3-10 Abnormal (applies [facility] (St to non-numeric Juan C's results) Medical, ) Epithelial 0-10 Normal (applies [facility] (St Cells (non to non-numeric Juan C's renal) results) Medical, ) Mucus Threads Present Normal (applies [facility] (St to non-numeric [facility] C's results) Medical, ) Bacteria None seen Normal (applies [facility] (St [Presence] in to non-numeric Juan C's Prostatic results) Medical, ) fluid by Light microscopy ID Date Data Source [id number] 05/01/2020 12:00:00 AM EDT [facility] ([facility], ) Name Value Range Interpretation Description Data Sup porting Code Source(s) Document(s ) Glucose 90 mg/dL Normal (applies [facility] (St [Mass/volume] in to non-numeric Juna C's Urine collected for results) Medical, unspecified PC) duration Urea nitrogen 37 mg/dL Above high [facility] (St [Mass/volume] in normal Juan C's Serum or Plasma [facility], ) Creatinine 4.28 Above high [facility] (St [Interpretation] in mg/dL normal Juan C's Urine [facility], ) eGFR If NonAfricn 13 Below low normal MEDGE N (St Am mL/min/[address], ) eGFR If Africn Am 15 Below low normal MEDGE N (St mL/min/1 [facility] .73 [facility], ) BUN/Creatinine 9 Below low normal [facility] ( St Ratio [facility], ) Sodium 138 Normal (applies [facility] (St [Moles/volume] in mmol/L to non-numeric Juan C's Serum or Plasma results) [facility], ) Potassium 5.1 Normal (applies [facility] (St [Mass/volume] in mmol/L to non-numeric Juan C's Blood results) [facility], ) Chloride 108 Above high [facility] (St [Moles/volume] in mmol/L normal Juan C's Serum or Plasma [facility], ) Carbon dioxide, 19 Below low normal [facility] (St total mmol/L Juan C's [Moles/volume] in Medical, Serum or Plasma PC) Calcium 7.4 Below low normal [facility] (St [Moles/volume] in mg/dL [facility]'s Urine collected for Medical, unspecified PC) duration Protein 8.5 g/dL Normal (applies [facility] (St [Mass/volume] in to non-numeric Juan C's Serum or Plasma results) [facility], ) Microalbumin 3.8 g/dL Normal (applies [facility] (St [Mass/time] in to non-numeric Juan C's Urine collected for results) Medical, unspecified PC) duration Globulin, Total 4.7 g/dL Above high [facility] (St normal [facility], ) A/G Ratio 0.8 Below low normal [facility], ) Bilirubin.total 0.4 Normal (applies [facility] ( St [Mass/volume] in mg/dL to non-numeric Juan C's Serum or Plasma results) Medical, ) Alkaline 86 IU/L Normal (applies MED[facility] (St phosphatase to non-numeric Juan C's [Enzymatic results) [facility], activity/volume] in PC) Serum, Plasma or Blood Aspartate 37 IU/L Normal (applies [facility] (St aminotransferase to non-numeric Juan C's [Enzymatic results) Medical, activity/volume] in ) Serum or Plasma Alanine 43 IU/L Normal (applies [facility] (St aminotransferase to non-numeric Juan C's [Enzymatic results) Medical, activity/volume] in ) Serum or Plasma ID Date Data Source [id number] 05/01/2020 12:00:00 AM EDT [facility] (St [facility], ) Name Value Range Interpretation Description Data Sup porting Code Source(s) Document(s ) Leukocytes 13.3 Above high normal MED[facility] (St [#/volume] in x10E3/uL Juan C's Blood by [facility]) Automated count Erythrocytes 2.72 Below lower panic MEDGEN (S t [#/volume] in x10E6/uL limits Juan C's Blood by [facility], ) Automated count Hemoglobin 9.1 g/dL Below low normal [facility] (St [Mass/volume] in [facility] Blood [facility]) Hematocrit 27.8 % Below low normal [facility] (St [Volume Juan C's Fraction] of [facility], ) Blood by Automated count MCV 102 fL Above high normal [facility] ([facility], ) MCH 33.5 pg Above high normal [facility] ([facility], ) MCHC 32.7 Normal (applies MEDGEN (St g/dL to non-numeric Juan C's results) [facility]) RDW 18.4 % Above high normal [facility] ([facility], ) Platelets 230 Normal (applies MEDGEN (St [#/area] in x10E3/uL to non-numeric Juan C's Blood by results) [facility]) Microscopy high power field Neutrophils [#] 49 % Normal (applies MEDGEN ( St in Body fluid by to non-numeric Juan C's Manual count results) [facility]) Lymphs 33 % Normal (applies MEDGEN (St to non-numeric Juan C's results) [facility]) Monocytes 8 % Normal (applies MEDGEN (St [#/volume] in to non-numeric Juan C's Cord blood results) [facility]) Eos 4 % Normal (applies MEDGEN (St to non-numeric Juan C's results) [facility]) Basos 0 % Normal (applies MEDGEN (St to non-numeric Juan C's results) [facility], ) Immature cells Note Normal (applies MEDGEN (S t [#/volume] in to non-numeric Juan C's Blood results) [facility], ) Neutrophils 6.5 Normal (applies MEDGEN (St (Absolute) x10E3/uL to non-numeric Juan C's results) [facility], ) Lymphs 4.4 Above high normal [facility] (St (Absolute) x10E3/uL [facility], ) Monocytes(Absolu 1.1 Above high normal MEDGE N (St te) x10E3/uL [facility], ) Eos (Absolute) 0.5 Above high normal [facility] (St x10E3/uL [facility], ) Baso (Absolute) 0.0 Normal (applies MEDGEN ( St x10E3/uL to non-numeric Juan C's results) [facility], ) NRBC 8 % Above high normal [facility] ([facility], ) Hematology Note: Normal (applies MEDGEN (St Comments: to non-numeric Juan C's results) [facility], ) ID Date Data Source [id number] 05/01/2020 12:00:00 AM EDT [facility] ([facility], ) Name Value Range Interpretation Description Data Sup porting Code Source(s) Document(s ) Metamyelocytes [#] 2 % Above high normal MED GEN (St in Body fluid by Juan C's Manual count [facility], ) Myelocytes [#] in 4 % Above high normal MEDG EN (St Body fluid by Juan C's Manual count [facility], ) ID Date Data Source [id number] 05/01/2020 12:00:00 AM EDT [facility] ([facility], ) Name Value Range Interpretation Code Description Data Supporting Source(s) Document(s ) Ferritin, 191 ng/mL Normal (applies to MEDGEN (St Serum non-numeric Juan C's results) [facility], ) ID Date Data Source [id number] 05/01/2020 12:00:00 AM EDT [facility] ([facility], ) Name Value Range Interpretation Description Data Sup porting Code Source(s) Document(s ) Deprecated 2.4 mg/dL Below low normal MED[facility] (St Phosphorus Juan C's [Mass/time] in [facility], ) 24 hour Urine ID Date Data Source [id number] 05/01/2020 12:00:00 AM EDT [facility] ([facility], ) Name Value Range Interpretation Description Data Sup porting Code Source(s) Document(s ) Vitamin D, 29.4 Below low normal MEDGEN (St 25-Hydroxy ng/mL [facility], ) ID Date Data Source [id number] 05/01/2020 12:00:00 AM EDT [facility] ([facility], ) Name Value Range Interpretation Code Description Data Supporting Source(s) Document(s ) Creatinine 77.9 mg/dL Normal (applies to MEDGEN (S t , Urine non-numeric Juan C's results) [facility], ) Protein,To 227.0 Normal (applies to MEDGEN (St ruth,Urine mg/dL non-numeric Juan C's results) [facility], ) Protein/Cr 2914 mg/g Above high normal MEDGEN (St eat Ratio creat [facility], ) ID Date Data Source [id number] 05/01/2020 12:00:00 AM EDT [facility] ([facility], ) Name Value Range Interpretation Description Data Sup porting Code Source(s) Document(s ) Iron 270 ug/dL Normal (applies to MEDGEN (St Bind.Cap.(TIBC non-numeric Juan C's ) results) Medical, ) UIBC 231 ug/dL Normal (applies to MEDGEN (St non-numeric Juan C's results) [facility], ) Iron 39 ug/dL Normal (applies to MEDGEN (St [Mass/volume] non-numeric Juan C's in Serum or results) [facility], ) Plasma Iron 14 % Below low normal MEDGEN (St saturation Juan C's [Mass [facility], ) Fraction] in Serum or Plasma ID Date Data Source [id number] 05/01/2020 12:00:00 AM EDT [facility] ([facility], ) Name Value Range Interpretation Description Data Sup porting Code Source(s) Document(s ) Specific gravity 1.015 Normal (applies MEDGEN (St of Pericardial to non-numeric Juan C's fluid by results) Medical, Refractometry ) pH of Lower 7.0 Normal (applies MEDGEN (St respiratory to non-numeric Juan C's specimen results) [facility], ) Urine-Color Yellow Normal (applies MEDGEN (St to non-numeric Juan C's results) Medical, ) WBC Esterase Negative Normal (applies MEDGEN (St to non-numeric Juan C's results) Medical, PC) Appearance of Clear Normal (applies MEDGEN (St Abdomen to non-numeric Juan C's results) Medical, PC) Protein Abnormal MEDGEN (St [Mass/volume] in (applies to Juan C's Lower non-numeric Medical, respiratory results) PC) specimen Glucose Negative Normal (applies MEDGEN (St [Mass/volume] in to non-numeric Juan C's Urine collected results) Medical, for unspecified PC) duration Ketones Negative Normal (applies MEDGEN (St [Presence] in to non-numeric Juan C's Blood by Tablet results) Medical, ) Occult Blood Abnormal MEDGEN (St (applies to Juan C's non-numeric Medical, results) PC) Urobilinogen,Mel 0.2 mg/dL Normal (applies MEDGEN (St i-Qn to non-numeric Juan C's results) Medical, ) Bilirubin Negative Normal (applies MEDGEN (St [Presence] in to non-numeric Juan C's Peritoneal fluid results) Medical, ) Nitrite, Urine Negative Normal (applies MEDGEN (S t to non-numeric Juan C's results) Medical, ) Microscopic See below: Normal (applies MEDGEN (St Examination to non-numeric Juan C's results) Medical, ) ID Date Data Source [id number] 05/01/2020 12:00:00 AM EDT [facility] ([facility], ) Name Value Range Interpretation Description Data Sup porting Code Source(s) Document(s ) WBC 0-5 Normal (applies MEDGEN (St to non-numeric Juan C's results) Medical, PC) RBC 3-10 Abnormal (applies MEDGEN (St to non-numeric Juan C's results) Medical, ) Epithelial 0-10 Normal (applies MEDGEN (St Cells (non to non-numeric Juan C's renal) results) Medical, ) Mucus Threads Present Normal (applies MEDGEN (St to non-numeric Juan C's results) Medical, ) Bacteria None seen Normal (applies MEDGEN (St [Presence] in to non-numeric Juan C's Prostatic results) Medical, ) fluid by Light microscopy ID Date Data Source [id number] 05/01/2020 12:00:00 AM EDT [facility] ([facility]) Name Value Range Interpretation Description Data Sup porting Code Source(s) Document(s ) Glucose 90 mg/dL Normal (applies MEDGEN (St [Mass/volume] in to non-numeric Juan C's Urine collected for results) Medical, unspecified ) duration Urea nitrogen 37 mg/dL Above high MEDGEN (St [Mass/volume] in normal Juan C's Serum or Plasma [facility], ) eGFR If NonAfricn 13 Below low normal MEDGE N (St Am mL/min/[address], ) Creatinine 4.28 Above high MEDGEN (St [Interpretation] in mg/dL normal [facility]'s Urine [facility], ) eGFR If Africn Am 15 Below low normal MEDGE N (St mL/min/[address], ) BUN/Creatinine 9 Below low normal MEDGEN ( St Ratio [facility], ) Sodium 138 Normal (applies MEDGEN (St [Moles/volume] in mmol/L to non-numeric Juan C's Serum or Plasma results) [facility], ) Potassium 5.1 Normal (applies MEDGEN (St [Mass/volume] in mmol/L to non-numeric Juan C's Blood results) [facility], ) Chloride 108 Above high MEDGEN (St [Moles/volume] in mmol/L normal Juan C's Serum or Plasma [facility], ) Carbon dioxide, 19 Below low normal MEDGEN (St total mmol/L Juan C's [Moles/volume] in Medical, Serum or Plasma PC) Calcium 7.4 Below low normal MEDGEN (St [Moles/volume] in mg/dL Juan C's Urine collected for Medical, unspecified PC) duration Microalbumin 3.8 g/dL Normal (applies MEDGEN (St [Mass/time] in to non-numeric Juan C's Urine collected for results) Medical, unspecified PC) duration Protein 8.5 g/dL Normal (applies MEDGEN (St [Mass/volume] in to non-numeric Juan C's Serum or Plasma results) [facility], ) Globulin, Total 4.7 g/dL Above high MEDGEN (St normal [facility], ) A/G Ratio 0.8 Below low normal [facility], ) Alkaline 86 IU/L Normal (applies MEDGEN (St phosphatase to non-numeric Juan C's [Enzymatic results) Medical, activity/volume] in ) Serum, Plasma or Blood Bilirubin.total 0.4 Normal (applies MEDGEN ( St [Mass/volume] in mg/dL to non-numeric Juan C's Serum or Plasma results) [facility], ) Aspartate 37 IU/L Normal (applies MEDGEN (St aminotransferase to non-numeric Juan C's [Enzymatic results) Medical, activity/volume] in ) Serum or Plasma Alanine 43 IU/L Normal (applies MEDGEN (St aminotransferase to non-numeric Juan C's [Enzymatic results) Medical, activity/volume] in ) Serum or Plasma ID Date Data Source [id number] 05/01/2020 12:00:00 AM EDT [facility] ([facility], ) Name Value Range Interpretation Description Data Sup porting Code Source(s) Document(s ) Leukocytes 13.3 Above high normal MEDGEN (St [#/volume] in x10E3/uL Juan C's Blood by [facility], ) Automated count Hemoglobin 9.1 g/dL Below low normal MEDGEN (St [Mass/volume] in Juan C's Blood [facility]) Erythrocytes 2.72 Below lower panic MEDGEN (S t [#/volume] in x10E6/uL limits Juan C's Blood by [facility]) Automated count Hematocrit 27.8 % Below low normal MEDGEN (St [Volume Juan C's Fraction] of [facility], ) Blood by Automated count MCV 102 fL Above high normal MEDGEN ([facility], ) MCH 33.5 pg Above high normal MEDGEN ([facility], ) MCHC 32.7 Normal (applies MEDGEN (St g/dL to non-numeric Juan C's results) [facility]) RDW 18.4 % Above high normal [facility]GEN ([facility], ) Platelets 230 Normal (applies MEDGEN (St [#/area] in x10E3/uL to non-numeric Juan C's Blood by results) [facility]) Microscopy high power field Neutrophils [#] 49 % Normal (applies MEDGEN ( St in Body fluid by to non-numeric Juan C's Manual count results) [facility]) Lymphs 33 % Normal (applies MEDGEN (St to non-numeric Juan C's results) [facility]) Monocytes 8 % Normal (applies MEDGEN (St [#/volume] in to non-numeric Juan C's Cord blood results) [facility], ) Eos 4 % Normal (applies MEDGEN (St to non-numeric Juan C's results) [facility], ) Basos 0 % Normal (applies MEDGEN (St to non-numeric Juan C's results) [facility]) Neutrophils 6.5 Normal (applies MEDGEN (St (Absolute) x10E3/uL to non-numeric Juan C's results) [facility]) Immature cells Note Normal (applies MEDGEN (S t [#/volume] in to non-numeric Juan C's Blood results) [facility], ) Lymphs 4.4 Above high normal MEDGEN (St (Absolute) x10E3/uL [facility]'s [facility], ) Monocytes(Absolu 1.1 Above high normal MEDGE N (St te) x10E3/uL [facility]'s [facility], ) Baso (Absolute) 0.0 Normal (applies MEDGEN ( St x10E3/uL to non-numeric Juan C's results) [facility], ) Eos (Absolute) 0.5 Above high normal MEDGEN (St x10E3/uL [facility]'s [facility], ) NRBC 8 % Above high normal [facility] ([facility], ) Hematology Note: Normal (applies MEDGEN (St Comments: to non-numeric Juan C's results) [facility], ) ID Date Data Source [id number] 05/01/2020 12:00:00 AM EDT [facility] ([facility], ) Name Value Range Interpretation Description Data Sup porting Code Source(s) Document(s ) Metamyelocytes [#] 2 % Above high normal MED GEN (St in Body fluid by Juan C's Manual count [facility], ) Myelocytes [#] in 4 % Above high normal MEDG EN (St Body fluid by Juan C's Manual count [facility], ) ID Date Data Source [id number] 04/28/2020 12:00:00 AM EDT [facility] ([facility], ) Name Value Range Interpretation Description Data Sup porting Code Source(s) Document(s ) VITAMIN 30 ng/mL Normal (applies to MEDGEN (St D,25-OH,TOTA non-numeric Juan C's L,IA results) [facility]) ID Date Data Source [id number] 04/28/2020 12:00:00 AM EDT [facility] ([facility]) Name Value Range Interpretation Description Data Sup porting Code Source(s) Document(s ) Color of Yellow Normal (applies MEDGEN (St Peritoneal to non-numeric Juan C's dialysis fluid results) Medical, PC) Appearance of Clear Normal (applies MEDGEN (St Abdomen to non-numeric Juan C's results) Medical, PC) Specific gravity 1.016 Normal (applies MEDGEN (St of Pericardial to non-numeric Juan C's fluid by results) Medical, Refractometry PC) pH of Lower 6.5 Normal (applies MEDGEN (St respiratory to non-numeric Juan C's specimen results) Medical, PC) Glucose Negative Normal (applies MEDGEN (St [Mass/volume] in to non-numeric Juan C's Urine collected results) Medical, for unspecified PC) duration Bilirubin Negative Normal (applies MEDGEN (St [Presence] in to non-numeric Juan C's Peritoneal fluid results) Medical, PC) Ketones Negative Normal (applies MEDGEN (St [Presence] in to non-numeric Juan C's Blood by Tablet results) Medical, PC) OCCULT BLOOD Abnormal (applies MEDGEN (S t to non-numeric Juan C's results) Medical, PC) Nitrite Negative Normal (applies MEDGEN (St [Presence] in to non-numeric Juan C's Urine by Test results) Medical, strip PC) Protein Abnormal (applies MEDGEN (St [Mass/volume] in to non-numeric Juan C's Lower results) Medical, respiratory PC) specimen Leukocyte Negative Normal (applies MEDGEN (St esterase to non-numeric Juan C's [Presence] in results) Medical, Body fluid by PC) Automated test strip WBC 0-5 Normal (applies MEDGEN (St to non-numeric Juan C's results) Medical, PC) RBC 3-10 Above high normal [facility] ([facility], [facility]) SQUAMOUS None Seen Normal (applies MEDGEN (St EPITHELIAL CELLS to non-numeric Juan C's results) Medical, PC) HYALINE CAST None Seen Normal (applies MEDGEN (St to non-numeric Juan C's results) Medical, PC) Bacteria None Seen Normal (applies MEDGEN (St [Presence] in to non-numeric Juan C's Prostatic fluid results) Medical, by Light PC) microscopy ID Date Data Source [id number] 04/28/2020 12:00:00 AM EDT [facility] ([facility]) Name Value Range Interpretation Description Data Sup porting Code Source(s) Document(s ) SEGMENTED 60.8 % Normal (applies MEDGEN (St NEUTROPHILS,% to non-numeric Juan C's results) Medical, ) MATURE 22.2 % Normal (applies MEDGEN (St LYMPHOCYTES,% to non-numeric Juan C's results) [facility]) MONOCYTES,% 7.6 % Normal (applies MEDGEN (St to non-numeric Juan C's results) [facility]) EOSINOPHILS,% 2.5 % Normal (applies MEDGEN (St to non-numeric Juan C's results) [facility]) BASOPHILS,% 0.6 % Normal (applies MEDGEN (St to non-numeric Juan C's results) [facility], ) BANDS,% 0.6 % Normal (applies MEDGEN (St to non-numeric Juan C's results) [facility]) MYELOCYTES,% 3.2 % Normal (applies MEDGEN (St to non-numeric Juan C's results) [facility], ) NEUTROPHILS, 6749 Normal (applies MEDGEN (St ABSOLUTE cells/uL to non-numeric Juan C's results) [facility]) METAMYELOCYTES,% 2.5 % Normal (applies MEDGEN (St to non-numeric Juan C's results) [facility]) BAND,ABSOLUTE 67 Normal (applies MEDGEN (St cells/uL to non-numeric Juan C's results) [facility]) LYMPHOCYTES, 2464 Normal (applies MEDGEN (St ABSOLUTE cells/uL to non-numeric Juan C's results) [facility]) MONOCYTES, 844 Normal (applies MEDGEN (St ABSOLUTE cells/uL to non-numeric Juan C's results) [facility]) BASOPHILS, 67 Normal (applies MEDGEN (St ABSOLUTE cells/uL to non-numeric Juan C's results) [facility]) EOSINOPHILS, 278 Normal (applies MEDGEN (St ABSOLUTE cells/uL to non-numeric Juan C's results) [facility]) MYELOCYTES,ABSOL 355 Above high normal MEDGE N (St [place] cells/uL Juan C's [facility]) METAMYELOCYTES,A 278 Above high normal MEDGE N (St BSOLUTE cells/uL Juan C's [facility]) NUCLEATED RBC 3 /100 Above high normal MEDGEN ( St WBC Juan C's [facility]) NUCLEATED 278 Above high normal MEDGEN (St RBC,ABSOLUTE cells/uL Juan C's [facility]) MORPHOLOGICAL Normal (applies MEDGEN (St REVIEW to non-numeric Juan C's results) [facility], ) ID Date Data Source [id number] 04/28/2020 12:00:00 AM EDT MED[facility] ([facility], ) Name Value Range Interpretation Description Data Sup porting Code Source(s) Document(s ) WBC 11.1 Above high normal MEDGEN (St Thousand Juan C's /uL [facility], ) RBC 2.50 Below low normal MEDGEN (St Million/ Juan C's uL [facility], ) Hemoglobin 8.3 g/dL Below low normal MEDGEN (St [Mass/volume] in [facility] Mixed venous [facility], ) blood by Oximetry Hematocrit [Pure 24.9 % Below low normal MEDGEN (St volume fraction] [facility] of Blood by [facility], ) Automated count MCV 99.6 fL Normal (applies MEDGEN (St to non-numeric Juan C's results) [facility], ) MCH 33.2 pg Above high normal [facility] ([facility], ) MCHC 33.3 Normal (applies MEDGEN (St g/dL to non-numeric Juan C's results) [facility], ) RDW 18.2 % Above high normal [facility] ([facility], ) PLATELET COUNT 214 Normal (applies MEDGEN (S t Thousand to non-numeric Juan C's /uL results) [facility], ) MPV 10.1 fL Normal (applies MEDGEN (St to non-numeric Juan C's results) [facility], ) DIFFERENTIAL Normal (applies MEDGEN (St to non-numeric Juan C's results) [facility], ) ID Date Data Source [id number] 04/28/2020 12:00:00 AM EDT [facility] ([facility], ) Name Value Range Interpretation Description Data Sup porting Code Source(s) Document(s ) PHOSPHATE ( 2.5 mg/dL Normal (applies to MEDGEN (St PHOSPHORUS) non-numeric Juan C's results) [facility], ) ID Date Data Source [id number] 04/28/2020 12:00:00 AM EDT MED[facility] ([facility], ) Name Value Range Interpretation Code Description Data Lisa rce(s) Supporting Document(s ) URIC ACID 5.0 mg/dL Normal (applies to MEDGEN (St non-numeric Juan C's results) [facility], ) ID Date Data Source [id number] 04/28/2020 12:00:00 AM EDT MED[facility] ([facility], ) Name Value Range Interpretation Description Data Sup porting Code Source(s) Document(s ) Glucose 92 mg/dL Normal (applies MEDGEN (St [Mass/volume] in to non-numeric Juan C's Urine collected results) [facility], ) for unspecified duration Sodium 133 Below low normal MEDGEN (St [Moles/volume] mmol/L Jaun C's in Serum, Plasma [facility], ) or Blood Potassium 5.2 Normal (applies MEDGEN (St [Mass/volume] in mmol/L to non-numeric Juan C's Blood results) [facility]) Chloride 109 Normal (applies MEDGEN (St [Moles/volume] mmol/L to non-numeric Juan C's in Serum, Plasma results) [facility]) or Blood Carbon dioxide 20 Normal (applies MEDGEN (S t [VFr/PPres] in mmol/L to non-numeric Juan C's Gas delivery results) [facility], ) system Urea nitrogen 36 mg/dL Above high normal MEDGEN ( St [Moles/volume] Juan C's in Blood [facility], ) Creatinine 4.78 Above high normal MEDGEN (St [Interpretation] mg/dL Juan C's in Urine [facility], ) BUN/CREATININE 8 (calc) Normal (applies MEDGEN (S t RATIO to non-numeric Juan C's results) [facility]) PROTEIN, TOTAL 8.1 g/dL Normal (applies MEDGEN (S t to non-numeric Juan C's results) [facility]) Calcium 7.6 Below low normal MEDGEN (St [Moles/volume] mg/dL Juan C's in Urine [facility], ) collected for unspecified duration Microalbumin 3.5 g/dL Below low normal MEDGEN (St [Mass/time] in Juan C's Urine collected [facility]) for unspecified duration Globulin 4.6 g/dL Above high normal MEDGEN (St [Mass/time] in (calc) Juan C's 24 hour Urine [facility]) ALBUMIN/GLOBULIN 0.8 Below low normal MEDGEN (St RATIO (calc) Juan C's [facility]) BILIRUBIN,TOTAL 0.3 Normal (applies MEDGEN ( St mg/dL to non-numeric Juan C's results) [facility]) Alkaline 71 U/L Normal (applies MEDGEN (St phosphatase to non-numeric Juan C's [Enzymatic results) Medical, PC) activity/volume] in Serum, Plasma or Blood AST 37 U/L Above high normal [facility] ([facility]) EGFR NON AFR 11 Below low normal [facility] (St [place] mL/min/1 Juan C's .73m2 Medical, PC) ALT 36 U/L Normal (applies MEDGEN (St to non-numeric Juan C's results) Medical, PC) EGFR 13 Below low normal [facility]GEN (St [place] mL/min/1 Juan C's .73m2 Medical, ) ID Date Data Source [id number] 04/28/2020 12:00:00 AM EDT [facility] ([facility], ) Name Value Range Interpretation Description Data Sup porting Code Source(s) Document(s ) VITAMIN 30 ng/mL Normal (applies to MEDGEN (St D,25-OH,TOTA non-numeric Juan C's L,IA results) Medical, PC) ID Date Data Source [id number] 04/28/2020 12:00:00 AM EDT [facility] ([facility], ) Name Value Range Interpretation Description Data Sup porting Code Source(s) Document(s ) Color of Yellow Normal (applies MEDGEN (St Peritoneal to non-numeric Juan C's dialysis fluid results) Medical, PC) Appearance of Clear Normal (applies MEDGEN (St Abdomen to non-numeric Juan C's results) Medical, PC) Specific gravity 1.016 Normal (applies MEDGEN (St of Pericardial to non-numeric Juan C's fluid by results) Medical, Refractometry PC) pH of Lower 6.5 Normal (applies MEDGEN (St respiratory to non-numeric Juan C's specimen results) Medical, PC) Bilirubin Negative Normal (applies MEDGEN (St [Presence] in to non-numeric Juan C's Peritoneal fluid results) Medical, PC) Glucose Negative Normal (applies MEDGEN (St [Mass/volume] in to non-numeric Juan C's Urine collected results) Medical, for unspecified PC) duration Ketones Negative Normal (applies MEDGEN (St [Presence] in to non-numeric Juan C's Blood by Tablet results) Medical, PC) OCCULT BLOOD Abnormal (applies MEDGEN (S t to non-numeric Juan C's results) Medical, PC) Protein Abnormal (applies MEDGEN (St [Mass/volume] in to non-numeric Juan C's Lower results) Medical, respiratory PC) specimen Nitrite Negative Normal (applies MEDGEN (St [Presence] in to non-numeric Juan C's Urine by Test results) Medical, strip PC) Leukocyte Negative Normal (applies MEDGEN (St esterase to non-numeric Juan C's [Presence] in results) [facility], Body fluid by PC) Automated test strip WBC 0-5 Normal (applies MEDGEN (St to non-numeric Juan C's results) Medical, PC) RBC 3-10 Above high normal [facility] ([facility], PC) SQUAMOUS None Seen Normal (applies MEDGEN (St EPITHELIAL CELLS to non-numeric Juan C's results) Medical, PC) Bacteria None Seen Normal (applies MEDGEN (St [Presence] in to non-numeric Juan C's Prostatic fluid results) Medical, by Light PC) microscopy HYALINE CAST None Seen Normal (applies MEDGEN (St to non-numeric Juan C's results) Medical, PC) ID Date Data Source [id number] 04/28/2020 12:00:00 AM EDT [facility] ([facility], ) Name Value Range Interpretation Description Data Sup porting Code Source(s) Document(s ) SEGMENTED 60.8 % Normal (applies MEDGEN (St NEUTROPHILS,% to non-numeric Juan C's results) Medical, PC) MONOCYTES,% 7.6 % Normal (applies MEDGEN (St to non-numeric Juan C's results) Medical, PC) MATURE 22.2 % Normal (applies MEDGEN (St LYMPHOCYTES,% to non-numeric Juan C's results) Medical, PC) EOSINOPHILS,% 2.5 % Normal (applies MEDGEN (St to non-numeric Juan C's results) Medical, PC) BASOPHILS,% 0.6 % Normal (applies MEDGEN (St to non-numeric Juan C's results) Medical, PC) BANDS,% 0.6 % Normal (applies MEDGEN (St to non-numeric Juan C's results) Medical, PC) MYELOCYTES,% 3.2 % Normal (applies MEDGEN (St to non-numeric Juan C's results) Medical, PC) METAMYELOCYTES,% 2.5 % Normal (applies MEDGEN (St to non-numeric Juan C's results) Medical, PC) NEUTROPHILS, 6749 Normal (applies MEDGEN (St ABSOLUTE cells/uL to non-numeric Juan C's results) Medical, PC) BAND,ABSOLUTE 67 Normal (applies MEDGEN (St cells/uL to non-numeric Juan C's results) [facility]) LYMPHOCYTES, 2464 Normal (applies MEDGEN (St ABSOLUTE cells/uL to non-numeric Juan C's results) [facility]) MONOCYTES, 844 Normal (applies MEDGEN (St ABSOLUTE cells/uL to non-numeric Juan C's results) [facility]) EOSINOPHILS, 278 Normal (applies MEDGEN (St ABSOLUTE cells/uL to non-numeric Juan C's results) [facility]) BASOPHILS, 67 Normal (applies MEDGEN (St ABSOLUTE cells/uL to non-numeric Juan C's results) [facility]) MYELOCYTES,ABSOL 355 Above high normal MEDGE N (St [place] cells/uL [facility]) METAMYELOCYTES,A 278 Above high normal MEDGE N (St BSOLUTE cells/uL [facility]) NUCLEATED RBC 3 /100 Above high normal MEDGEN ( St WBC [facility]) NUCLEATED 278 Above high normal MEDGEN (St RBC,ABSOLUTE cells/uL [facility]) MORPHOLOGICAL Normal (applies MEDGEN (St REVIEW to non-numeric [facility]'s results) [facility]) ID Date Data Source [id number] 04/28/2020 12:00:00 AM EDT MEDGEN (St [facility]) Name Value Range Interpretation Description Data Sup porting Code Source(s) Document(s ) WBC 11.1 Above high normal MEDGEN (St Thousand Juan C's /[facility]) RBC 2.50 Below low normal MEDGEN (St Million/ [facility]'s [facility]) Hemoglobin 8.3 g/dL Below low normal MEDGEN (St [Mass/volume] in [facility] Mixed venous [facility]) blood by Oximetry Hematocrit [Pure 24.9 % Below low normal MEDGEN (St volume fraction] [facility] of Blood by [facility]) Automated count MCV 99.6 fL Normal (applies MEDGEN (St to non-numeric Juan C's results) [facility]) MCH 33.2 pg Above high normal MEDGEN ([facility]) MCHC 33.3 Normal (applies MEDGEN (St g/dL to non-numeric [facility]'s results) [facility]) RDW 18.2 % Above high normal MEDGEN ([facility]) PLATELET COUNT 214 Normal (applies MEDGEN (S t Thousand to non-numeric Juan C's /uL results) [facility], ) DIFFERENTIAL Normal (applies MEDGEN (St to non-numeric Juan C's results) [facility], ) MPV 10.1 fL Normal (applies MEDGEN (St to non-numeric Juan C's results) [facility], ) ID Date Data Source [id number] 04/28/2020 12:00:00 AM EDT MED[facility] ([facility], ) Name Value Range Interpretation Description Data Sup porting Code Source(s) Document(s ) PHOSPHATE ( 2.5 mg/dL Normal (applies to MEDGEN (St PHOSPHORUS) non-numeric Juan C's results) [facility], ) ID Date Data Source [id number] 04/28/2020 12:00:00 AM EDT MEDGEN ([facility], ) Name Value Range Interpretation Code Description Data Lisa rce(s) Supporting Document(s ) URIC ACID 5.0 mg/dL Normal (applies to MEDGEN (St non-numeric Juan C's results) [facility], ) ID Date Data Source [id number] 04/28/2020 12:00:00 AM EDT MED[facility] ([facility], ) Name Value Range Interpretation Description Data Sup porting Code Source(s) Document(s ) Glucose 92 mg/dL Normal (applies MEDGEN (St [Mass/volume] in to non-numeric Juan C's Urine collected results) [facility], ) for unspecified duration Sodium 133 Below low normal MEDGEN (St [Moles/volume] mmol/L Juan C's in Serum, Plasma [facility], ) or Blood Potassium 5.2 Normal (applies MEDGEN (St [Mass/volume] in mmol/L to non-numeric Juan C's Blood results) [facility], ) Chloride 109 Normal (applies MEDGEN (St [Moles/volume] mmol/L to non-numeric Juan C's in Serum, Plasma results) [facility], ) or Blood Carbon dioxide 20 Normal (applies MEDGEN (S t [VFr/PPres] in mmol/L to non-numeric Juan C's Gas delivery results) [facility], ) system Urea nitrogen 36 mg/dL Above high normal MEDGEN ( St [Moles/volume] Juan C's in Blood [facility], ) Creatinine 4.78 Above high normal MEDGEN (St [Interpretation] mg/dL Juan C's in Urine [facility]) BUN/CREATININE 8 (calc) Normal (applies MEDGEN (S t RATIO to non-numeric Juan C's results) [facility]) PROTEIN, TOTAL 8.1 g/dL Normal (applies MEDGEN (S t to non-numeric Juan C's results) [facility]) Calcium 7.6 Below low normal MEDGEN (St [Moles/volume] mg/dL Juan C's in Urine [facility]) collected for unspecified duration Microalbumin 3.5 g/dL Below low normal MEDGEN (St [Mass/time] in [facility]'s Urine collected [facility]) for unspecified duration Globulin 4.6 g/dL Above high normal [facility] (St [Mass/time] in (calc) Juan C's 24 hour Urine [facility]) ALBUMIN/GLOBULIN 0.8 Below low normal [facility] (St RATIO (calc) [facility]) BILIRUBIN,TOTAL 0.3 Normal (applies [facility] ( St mg/dL to non-numeric Juan C's results) [facility]) Alkaline 71 U/L Normal (applies [facility] (St phosphatase to non-numeric Juan C's [Enzymatic results) [facility]) activity/volume] in Serum, Plasma or Blood AST 37 U/L Above high normal [facility] ([facility], ) ALT 36 U/L Normal (applies [facility] (St to non-numeric Juan C's results) [facility]) EGFR 13 Below low normal [facility] (St [place] mL/min/1 Juan C's .73m2 [facility]) EGFR NON AFR 11 Below low normal [facility] (St [place] mL/min/1 Juan C's .73m2 [facility]) ID Date Data Source [id number] 04/28/2020 12:00:00 AM EDT [facility] ([facility], ) Name Value Range Interpretation Description Data Sup porting Code Source(s) Document(s ) VITAMIN 30 ng/mL Normal (applies to [facility] (St D,25-OH,TOTA non-numeric Juan C's L,IA results) [facility]) ID Date Data Source [id number] 04/28/2020 12:00:00 AM EDT [facility] ([facility], ) Name Value Range Interpretation Description Data Sup porting Code Source(s) Document(s ) Color of Yellow Normal (applies [facility] (St Peritoneal to non-numeric Juan C's dialysis fluid results) Medical, PC) Appearance of Clear Normal (applies [facility] (St Abdomen to non-numeric Juan C's results) [facility], [facility]) Specific gravity 1.016 Normal (applies [facility] (St of Pericardial to non-numeric Juan C's fluid by results) Medical, Refractometry PC) pH of Lower 6.5 Normal (applies [facility] (St respiratory to non-numeric Juan C's specimen results) [facility], [facility]) Glucose Negative Normal (applies [facility] (St [Mass/volume] in to non-numeric Juan C's Urine collected results) Medical, for unspecified PC) duration Bilirubin Negative Normal (applies [facility] (St [Presence] in to non-numeric Juan C's Peritoneal fluid results) [facility], PC) Ketones Negative Normal (applies [facility] (St [Presence] in to non-numeric Juan C's Blood by Tablet results) [facility], [facility]) OCCULT BLOOD Abnormal (applies [facility] (S t to non-numeric Juan C's results) [facility], [facility]) Nitrite Negative Normal (applies [facility] (St [Presence] in to non-numeric Juan C's Urine by Test results) Medical, strip PC) Protein Abnormal (applies [facility] (St [Mass/volume] in to non-numeric Juan C's Lower results) Medical, respiratory PC) specimen Leukocyte Negative Normal (applies [facility] (St esterase to non-numeric Juan C's [Presence] in results) Medical, Body fluid by PC) Automated test strip WBC 0-5 Normal (applies [facility] (St to non-numeric Juan C's results) [facility], [facility]) RBC 3-10 Above high normal [facility] ([facility]) SQUAMOUS None Seen Normal (applies [facility] (St EPITHELIAL CELLS to non-numeric Juan C's results) [facility], [facility]) Bacteria None Seen Normal (applies [facility] (St [Presence] in to non-numeric Juan C's Prostatic fluid results) Medical, by Light PC) microscopy HYALINE CAST None Seen Normal (applies [facility] (St to non-numeric Juan C's results) [facility], [facility]) ID Date Data Source [id number] 04/28/2020 12:00:00 AM EDT [facility] ([facility]) Name Value Range Interpretation Description Data Sup porting Code Source(s) Document(s ) SEGMENTED 60.8 % Normal (applies [facility] (St NEUTROPHILS,% to non-numeric Juan C's results) Medical, ) MONOCYTES,% 7.6 % Normal (applies [facility] (St to non-numeric Juan C's results) Medical, ) MATURE 22.2 % Normal (applies [facility] (St LYMPHOCYTES,% to non-numeric Juan C's results) [facility]) EOSINOPHILS,% 2.5 % Normal (applies [facility] (St to non-numeric Juan C's results) [facility]) BASOPHILS,% 0.6 % Normal (applies [facility] (St to non-numeric Juan C's results) [facility]) BANDS,% 0.6 % Normal (applies [facility] (St to non-numeric Juan C's results) [facility]) MYELOCYTES,% 3.2 % Normal (applies [facility] (St to non-numeric Juan C's results) [facility]) METAMYELOCYTES,% 2.5 % Normal (applies [facility] (St to non-numeric Juan C's results) [facility]) NEUTROPHILS, 6749 Normal (applies [facility] (St ABSOLUTE cells/uL to non-numeric Juan C's results) [facility]) BAND,ABSOLUTE 67 Normal (applies [facility] (St cells/uL to non-numeric Juan C's results) [facility]) LYMPHOCYTES, 2464 Normal (applies [facility] (St ABSOLUTE cells/uL to non-numeric Juan C's results) [facility]) MONOCYTES, 844 Normal (applies [facility] (St ABSOLUTE cells/uL to non-numeric Juan C's results) [facility]) EOSINOPHILS, 278 Normal (applies [facility] (St ABSOLUTE cells/uL to non-numeric Juan C's results) [facility]) BASOPHILS, 67 Normal (applies [facility] (St ABSOLUTE cells/uL to non-numeric Juan C's results) [facility]) MYELOCYTES,ABSOL 355 Above high normal MEDGE N (St [place] cells/uL Juan C's [facility]) METAMYELOCYTES,A 278 Above high normal [facility]GE N (St BSOLUTE cells/uL Juanc 's [facility]) NUCLEATED RBC 3 /100 Above high normal [facility] ( St WBC Juan C's [facility]) NUCLEATED 278 Above high normal [facility] (St RBC,ABSOLUTE cells/uL Juan C's [facility]) MORPHOLOGICAL Normal (applies [facility] (St REVIEW to non-numeric Juan C's results) [facility]) ID Date Data Source [id number] 04/28/2020 12:00:00 AM EDT [facility] ([facility], ) Name Value Range Interpretation Description Data Sup porting Code Source(s) Document(s ) WBC 11.1 Above high normal [facility] (St Thousand Juan C's /uL [facility], ) RBC 2.50 Below low normal [facility] (St Million/ Juan C's uL [facility], ) Hemoglobin 8.3 g/dL Below low normal [facility] (St [Mass/volume] in [facility] Mixed venous [facility], ) blood by Oximetry Hematocrit [Pure 24.9 % Below low normal [facility] (St volume fraction] [facility]'s of Blood by [facility], ) Automated count MCV 99.6 fL Normal (applies [facility] (St to non-numeric Juan C's results) [facility], ) MCH 33.2 pg Above high normal [facility] ([facility], ) MCHC 33.3 Normal (applies [facility] (St g/dL to non-numeric Juan C's results) [facility], ) RDW 18.2 % Above high normal [facility] ([facility], ) PLATELET COUNT 214 Normal (applies [facility] (S t Thousand to non-numeric Juan C's /uL results) [facility], ) MPV 10.1 fL Normal (applies [facility] (St to non-numeric Juan C's results) [facility], ) DIFFERENTIAL Normal (applies [facility] (St to non-numeric Juan C's results) [facility], ) ID Date Data Source [id number] 04/28/2020 12:00:00 AM EDT [facility] ([facility], ) Name Value Range Interpretation Description Data Sup porting Code Source(s) Document(s ) PHOSPHATE ( 2.5 mg/dL Normal (applies to [facility] (St PHOSPHORUS) non-numeric Juan C's results) [facility], ) ID Date Data Source [id number] 04/28/2020 12:00:00 AM EDT [facility] ([facility], ) Name Value Range Interpretation Code Description Data Lisa rce(s) Supporting Document(s ) URIC ACID 5.0 mg/dL Normal (applies to [facility] (St non-numeric Juan C's results) [facility], ) ID Date Data Source [id number] 04/28/2020 12:00:00 AM EDT [facility] ([facility], ) Name Value Range Interpretation Description Data Sup porting Code Source(s) Document(s ) Glucose 92 mg/dL Normal (applies [facility] (St [Mass/volume] in to non-numeric Juan C's Urine collected results) [facility]) for unspecified duration Sodium 133 Below low normal [facility] (St [Moles/volume] mmol/L Juan C's in Serum, Plasma [facility]) or Blood Potassium 5.2 Normal (applies [facility] (St [Mass/volume] in mmol/L to non-numeric Juan C's Blood results) [facility]) Chloride 109 Normal (applies [facility] (St [Moles/volume] mmol/L to non-numeric Juan C's in Serum, Plasma results) [facility]) or Blood Carbon dioxide 20 Normal (applies [facility] (S t [VFr/PPres] in mmol/L to non-numeric Juan C's Gas delivery results) [facility]) system Urea nitrogen 36 mg/dL Above high normal [facility] ( St [Moles/volume] Juan C's in Blood [facility]) Creatinine 4.78 Above high normal [facility] (St [Interpretation] mg/dL Juan C's in Urine [facility]) BUN/CREATININE 8 (calc) Normal (applies [facility] (S t RATIO to non-numeric Juan C's results) [facility]) PROTEIN, TOTAL 8.1 g/dL Normal (applies [facility] (S t to non-numeric Juan C's results) [facility]) Calcium 7.6 Below low normal [facility] (St [Moles/volume] mg/dL Juan C's in Urine [facility]) collected for unspecified duration Microalbumin 3.5 g/dL Below low normal [facility] (St [Mass/time] in Juan C's Urine collected [facility]) for unspecified duration Globulin 4.6 g/dL Above high normal [facility] (St [Mass/time] in (calc) Juan C's 24 hour Urine [facility]) ALBUMIN/GLOBULIN 0.8 Below low normal [facility] (St RATIO (calc) Juan C's [facility]) BILIRUBIN,TOTAL 0.3 Normal (applies [facility] ( St mg/dL to non-numeric Juan C's results) [facility]) Alkaline 71 U/L Normal (applies [facility] (St phosphatase to non-numeric Juan C's [Enzymatic results) [facility]) activity/volume] in Serum, Plasma or Blood AST 37 U/L Above high normal [facility] ([facility]) ALT 36 U/L Normal (applies [facility] (St to non-numeric Juan C's results) [facility], [facility]) EGFR NON AFR 11 Below low normal [facility] (St [place] mL/min/1 Juan C's .73m2 [facility], PC) EGFR 13 Below low normal [facility] (St [place] mL/min/1 Juan C's .73m2 [facility], ) ID Date Data Source [id number] 04/28/2020 12:00:00 AM EDT [facility] ([facility]) Name Value Range Interpretation Description Data Sup porting Code Source(s) Document(s ) VITAMIN 30 ng/mL Normal (applies to [facility] (St D,25-OH,TOTA non-numeric Juan C's L,IA results) Medical, ) ID Date Data Source [id number] 04/28/2020 12:00:00 AM EDT [facility] ([facility]) Name Value Range Interpretation Description Data Sup porting Code Source(s) Document(s ) Color of Yellow Normal (applies [facility] (St Peritoneal to non-numeric Juan C's dialysis fluid results) [facility], [facility]) Appearance of Clear Normal (applies [facility] (St Abdomen to non-numeric Juan C's results) [facility], [facility]) Specific gravity 1.016 Normal (applies [facility] (St of Pericardial to non-numeric Juan C's fluid by results) [facility], Refractometry PC) pH of Lower 6.5 Normal (applies [facility] (St respiratory to non-numeric Juan C's specimen results) [facility], [facility]) Glucose Negative Normal (applies [facility] (St [Mass/volume] in to non-numeric Juan C's Urine collected results) Medical, for unspecified PC) duration Bilirubin Negative Normal (applies [facility] (St [Presence] in to non-numeric Juan C's Peritoneal fluid results) [facility], PC) Ketones Negative Normal (applies [facility] (St [Presence] in to non-numeric Juan C's Blood by Tablet results) [facility], PC) OCCULT BLOOD Abnormal (applies [facility] (S t to non-numeric Juan C's results) [facility], PC) Protein Abnormal (applies [facility] (St [Mass/volume] in to non-numeric Juan C's Lower results) Medical, respiratory PC) specimen Nitrite Negative Normal (applies [facility] (St [Presence] in to non-numeric Juan C's Urine by Test results) Medical, strip PC) Leukocyte Negative Normal (applies [facility] (St esterase to non-numeric Juan C's [Presence] in results) Medical, Body fluid by PC) Automated test strip WBC 0-5 Normal (applies [facility] (St to non-numeric Juan C's results) [facility], PC) RBC 3-10 Above high normal [facility] ([facility]) SQUAMOUS None Seen Normal (applies [facility] (St EPITHELIAL CELLS to non-numeric Juan C's results) [facility], PC) Bacteria None Seen Normal (applies [facility] (St [Presence] in to non-numeric Juan C's Prostatic fluid results) Medical, by Light PC) microscopy HYALINE CAST None Seen Normal (applies [facility] (St to non-numeric Juan C's results) Medical, ) ID Date Data Source [id number] 04/28/2020 12:00:00 AM EDT [facility] ([facility], ) Name Value Range Interpretation Description Data Sup porting Code Source(s) Document(s ) SEGMENTED 60.8 % Normal (applies [facility] (St NEUTROPHILS,% to non-numeric Juan C's results) [facility], PC) MATURE 22.2 % Normal (applies [facility] (St LYMPHOCYTES,% to non-numeric Juan C's results) Medical, ) MONOCYTES,% 7.6 % Normal (applies [facility] (St to non-numeric Juan C's results) [facility], PC) EOSINOPHILS,% 2.5 % Normal (applies [facility] (St to non-numeric Juan C's results) Medical, ) BASOPHILS,% 0.6 % Normal (applies [facility] (St to non-numeric Juan C's results) [facility], PC) BANDS,% 0.6 % Normal (applies [facility] (St to non-numeric Juan C's results) [facility], PC) MYELOCYTES,% 3.2 % Normal (applies [facility] (St to non-numeric Juan C's results) [facility], PC) METAMYELOCYTES,% 2.5 % Normal (applies [facility] (St to non-numeric Juan C's results) [facility], PC) NEUTROPHILS, 6749 Normal (applies [facility] (St ABSOLUTE cells/uL to non-numeric Juan C's results) Medical, ) BAND,ABSOLUTE 67 Normal (applies [facility] (St cells/uL to non-numeric Juan C's results) Medical, ) LYMPHOCYTES, 2464 Normal (applies [facility] (St ABSOLUTE cells/uL to non-numeric Juan C's results) [facility]) MONOCYTES, 844 Normal (applies [facility] (St ABSOLUTE cells/uL to non-numeric Juan C's results) [facility]) EOSINOPHILS, 278 Normal (applies [facility] (St ABSOLUTE cells/uL to non-numeric Juan C's results) [facility]) BASOPHILS, 67 Normal (applies [facility] (St ABSOLUTE cells/uL to non-numeric [facility]'s results) [facility]) MYELOCYTES,ABSOL 355 Above high normal [facility] N (St [place] cells/uL [facility]) METAMYELOCYTES,A 278 Above high normal [facility] N (St BSOLUTE cells/uL [facility]) NUCLEATED RBC 3 /100 Above high normal [facility] ( St WBC [facility]) NUCLEATED 278 Above high normal [facility] (St RBC,ABSOLUTE cells/uL [facility]) MORPHOLOGICAL Normal (applies [facility] (St REVIEW to non-numeric [facility]'s results) [facility]) ID Date Data Source [id number] 04/28/2020 12:00:00 AM EDT [facility] ([facility]) Name Value Range Interpretation Description Data Sup porting Code Source(s) Document(s ) WBC 11.1 Above high normal [facility] (St Thousand [facility]'s /[facility]) RBC 2.50 Below low normal [facility] (St Million/ [facility]'s [facility]) Hemoglobin 8.3 g/dL Below low normal [facility] (St [Mass/volume] in [facility] Mixed venous [facility]) blood by Oximetry Hematocrit [Pure 24.9 % Below low normal [facility] (St volume fraction] [facility] of Blood by [facility]) Automated count MCV 99.6 fL Normal (applies [facility] (St to non-numeric [facility]'s results) [facility]) MCH 33.2 pg Above high normal [facility] ([facility]) MCHC 33.3 Normal (applies [facility] (St g/dL to non-numeric [facility]'s results) [facility]) RDW 18.2 % Above high normal [facility] ([facility]) PLATELET COUNT 214 Normal (applies [facility] (S t Thousand to non-numeric Juan C's /uL results) [facility]) MPV 10.1 fL Normal (applies [facility] (St to non-numeric Juan C's results) [facility], ) DIFFERENTIAL Normal (applies [facility] (St to non-numeric Juan C's results) [facility], ) ID Date Data Source [id number] 04/28/2020 12:00:00 AM EDT [facility] ([facility], ) Name Value Range Interpretation Description Data Sup porting Code Source(s) Document(s ) PHOSPHATE ( 2.5 mg/dL Normal (applies to [facility] (St PHOSPHORUS) non-numeric Juan C's results) [facility], ) ID Date Data Source [id number] 04/28/2020 12:00:00 AM EDT [facility] ([facility], ) Name Value Range Interpretation Code Description Data Lisa rce(s) Supporting Document(s ) URIC ACID 5.0 mg/dL Normal (applies to [facility] (St non-numeric Juan C's results) [facility], ) ID Date Data Source [id number] 04/28/2020 12:00:00 AM EDT [facility] ([facility], ) Name Value Range Interpretation Description Data Sup porting Code Source(s) Document(s ) Glucose 92 mg/dL Normal (applies [facility] (St [Mass/volume] in to non-numeric Juan C's Urine collected results) [facility], ) for unspecified duration Sodium 133 Below low normal [facility] (St [Moles/volume] mmol/L Juan C's in Serum, Plasma [facility], ) or Blood Potassium 5.2 Normal (applies [facility] (St [Mass/volume] in mmol/L to non-numeric Juan C's Blood results) [facility], ) Chloride 109 Normal (applies [facility] (St [Moles/volume] mmol/L to non-numeric Juan C's in Serum, Plasma results) [facility], ) or Blood Carbon dioxide 20 Normal (applies [facility] (S t [VFr/PPres] in mmol/L to non-numeric Juan C's Gas delivery results) [facility], ) system Urea nitrogen 36 mg/dL Above high normal [facility] ( St [Moles/volume] Juan C's in Blood [facility], ) Creatinine 4.78 Above high normal [facility] (St [Interpretation] mg/dL Juan C's in Urine [facility], ) BUN/CREATININE 8 (calc) Normal (applies [facility] (S t RATIO to non-numeric Juan C's results) [facility], ) Calcium 7.6 Below low normal [facility] (St [Moles/volume] mg/dL Juan C's in Urine [facility]) collected for unspecified duration PROTEIN, TOTAL 8.1 g/dL Normal (applies [facility] (S t to non-numeric Juan C's results) [facility]) Microalbumin 3.5 g/dL Below low normal [facility] (St [Mass/time] in [facility]'s Urine collected [facility]) for unspecified duration Globulin 4.6 g/dL Above high normal [facility] (St [Mass/time] in (calc) Ujan C's 24 hour Urine [facility]) ALBUMIN/GLOBULIN 0.8 Below low normal [facility] (St RATIO (calc) [facility]) BILIRUBIN,TOTAL 0.3 Normal (applies [facility] ( St mg/dL to non-numeric Juan C's results) [facility]) Alkaline 71 U/L Normal (applies [facility] (St phosphatase to non-numeric Juan C's [Enzymatic results) [facility]) activity/volume] in Serum, Plasma or Blood AST 37 U/L Above high normal [facility] ([facility], ) ALT 36 U/L Normal (applies [facility] (St to non-numeric Juan C's results) [facility]) EGFR NON AFR 11 Below low normal [facility] (St [place] mL/min/1 Juan C's .73m2 [facility]) EGFR 13 Below low normal [facility] (St [place] mL/min/1 Juan C's .73m2 [facility]) ID Date Data Source [id number] 04/28/2020 12:00:00 AM EDT [facility] ([facility], ) Name Value Range Interpretation Description Data Sup porting Code Source(s) Document(s ) WBC 11.1 Above high normal [facility] (St Thousand/ Juan C's uL [facility], ) RBC 2.50 Below low normal [facility] (St Million/u Juan C's L [facility], ) Hematocrit 24.9 % Below low normal [facility] (St [Pure volume Juan C's fraction] of [facility]) Blood by Automated count Hemoglobin 8.3 g/dL Below low normal [facility] (St [Mass/volume] Juan C's in Mixed [facility]) venous blood by Oximetry MCV 99.6 fL Normal (applies to [facility] (St non-numeric Juan C's results) [facility], ) MCH 33.2 pg Above high normal [facility] ([facility], ) RDW 18.2 % Above high [facility], ) MCHC 33.3 g/dL Normal (applies to [facility] (St non-numeric Juan C's results) [facility]) PLATELET COUNT 214 Normal (applies to [facility] (St Thousand/ non-numeric Juan C's uL results) [facility]) MPV 10.1 fL Normal (applies to [facility] (St non-numeric Juan C's results) [facility]) ID Date Data Source [id number] 04/28/2020 12:00:00 AM EDT [facility] ([facility]) Name Value Range Interpretation Description Data Sup porting Code Source(s) Document(s ) PHOSPHATE ( 2.5 mg/dL Normal (applies to [facility] (St PHOSPHORUS) non-numeric Juan C's results) [facility], ) ID Date Data Source [id number] 04/28/2020 12:00:00 AM EDT [facility] ([facility]) Name Value Range Interpretation Code Description Data Lisa rce(s) Supporting Document(s ) URIC ACID 5.0 mg/dL Normal (applies to [facility] (St non-numeric Juan C's results) [facility]) ID Date Data Source [id number] 04/28/2020 12:00:00 AM EDT [facility] ([facility]) Name Value Range Interpretation Description Data Sup porting Code Source(s) Document(s ) Glucose 92 mg/dL Normal (applies [facility] (St [Mass/volume] in to non-numeric Juan C's Urine collected results) [facility], ) for unspecified duration Sodium 133 Below low normal [facility] (St [Moles/volume] mmol/L Juan C's in Serum, Plasma [facility], ) or Blood Potassium 5.2 Normal (applies [facility] (St [Mass/volume] in mmol/L to non-numeric Juan C's Blood results) [facility], ) Chloride 109 Normal (applies [facility] (St [Moles/volume] mmol/L to non-numeric Juan C's in Serum, Plasma results) [facility], ) or Blood Carbon dioxide 20 Normal (applies [facility] (S t [VFr/PPres] in mmol/L to non-numeric Juan C's Gas delivery results) [facility]) system Urea nitrogen 36 mg/dL Above high normal [facility] ( St [Moles/volume] Juan C's in Blood [facility]) Creatinine 4.78 Above high normal [facility] (St [Interpretation] mg/dL Juan C's in Urine [facility]) BUN/CREATININE 8 (calc) Normal (applies [facility] (S t RATIO to non-numeric Juan C's results) [facility] [facility] Calcium 7.6 Below low normal [facility] (St [Moles/volume] mg/dL Juan C's in Urine [facility]) collected for unspecified duration PROTEIN, TOTAL 8.1 g/dL Normal (applies [facility] (S t to non-numeric Juan C's results) [facility]) Microalbumin 3.5 g/dL Below low normal [facility] (St [Mass/time] in [facility] Urine collected [facility]) for unspecified duration Globulin 4.6 g/dL Above high normal [facility] (St [Mass/time] in (calc) [facility]'s 24 hour Urine [facility]) ALBUMIN/GLOBULIN 0.8 Below low normal [facility] (St RATIO (calc) [facility]) BILIRUBIN,TOTAL 0.3 Normal (applies [facility] ( St mg/dL to non-numeric Juan C's results) [facility]) Alkaline 71 U/L Normal (applies [facility] (St phosphatase to non-numeric Juan C's [Enzymatic results) [facility]) activity/volume] in Serum, Plasma or Blood AST 37 U/L Above high normal [facility] ([facility], ) ALT 36 U/L Normal (applies [facility] (St to non-numeric Juan C's results) [facility]) EGFR NON AFR 11 Below low normal [facility] ([facility] [place] mL/min/1 Juan C's .73m2 [facility]) EGFR 13 Below low normal [facility] ([facility] [place] mL/min/1 Juan C's .73m2 [facility]) ID Date Data Source [id number] 04/28/2020 12:00:00 AM EDT [facility] ([facility]) Name Value Range Interpretation Description Data Sup porting Code Source(s) Document(s ) VITAMIN 30 ng/mL Normal (applies to [facility] (St D,25-OH,TOTA non-numeric Juan C's L,IA results) [facility]) ID Date Data Source [id number] 04/28/2020 12:00:00 AM EDT [facility] Name Value Range Interpretation Description Data Sup porting Code Source(s) Document(s ) Color of Yellow Normal (applies [facility] (St Peritoneal to non-numeric [facility]'s dialysis fluid results) [facility], [facility]) Appearance of Clear Normal (applies [facility] (St Abdomen to non-numeric [facility] results) [facility]) Specific gravity 1.016 Normal (applies [facility] (St of Pericardial to non-numeric Juan C's fluid by results) [facility], Refractometry PC) pH of Lower 6.5 Normal (applies [facility] (St respiratory to non-numeric [facility] specimen results) [facility]) Glucose Negative Normal (applies [facility] (St [Mass/volume] in to non-numeric [facility] Urine collected results) Medical, for unspecified PC) duration Bilirubin Negative Normal (applies [facility] (St [Presence] in to non-numeric [facility]'s Peritoneal fluid results) [facility], [facility]) OCCULT BLOOD Abnormal (applies [facility] (S t to non-numeric [facility] results) [facility]) Ketones Negative Normal (applies [facility] (St [Presence] in to non-numeric [facility]'s Blood by Tablet results) [facility], [facility]) Protein Abnormal (applies [facility] (St [Mass/volume] in to non-numeric [facility]'s Lower results) Medical, respiratory PC) specimen Nitrite Negative Normal (applies [facility] (St [Presence] in to non-numeric [facility]'s Urine by Test results) Medical, strip PC) Leukocyte Negative Normal (applies [facility] (St esterase to non-numeric Juan C's [Presence] in results) Medical, Body fluid by PC) Automated test strip RBC 3-10 Above high normal [facility] ([facility]) WBC 0-5 Normal (applies [facility] (St to non-numeric [facility]'s results) [facility], [facility]) SQUAMOUS None Seen Normal (applies [facility] (St EPITHELIAL CELLS to non-numeric [facility]'s results) [facility], [facility]) Bacteria None Seen Normal (applies [facility] (St [Presence] in to non-numeric [facility] C's Prostatic fluid results) Medical, by Light PC) microscopy HYALINE CAST None Seen Normal (applies [facility] (St to non-numeric [facility] results) [facility]) ID Date Data Source [id number] 04/28/2020 12:00:00 AM EDT [facility], ) Name Value Range Interpretation Description Data Sup porting Code Source(s) Document(s ) SEGMENTED 60.8 % Normal (applies to [facility] (St NEUTROPHILS,% non-numeric [facility]'s results) Medical, ) MATURE 22.2 % Normal (applies to [facility] (St LYMPHOCYTES,% non-numeric [facility]'s results) Medical, ) MONOCYTES,% 7.6 % Normal (applies to [facility] (S t non-numeric [facility] C's results) Medical, ) EOSINOPHILS,% 2.5 % Normal (applies to [facility] (St non-numeric Juan C's results) [facility], ) BASOPHILS,% 0.6 % Normal (applies to [facility] (S t non-numeric Juan C's results) [facility], ) MYELOCYTES,% 3.2 % Normal (applies to [facility] ( St non-numeric Juan C's results) [facility], ) BANDS,% 0.6 % Normal (applies to [facility] (St non-numeric Juan C's results) [facility], ) METAMYELOCYTE 2.5 % Normal (applies to [facility] (St S,% non-numeric Juan C's results) [facility], ) NEUTROPHILS, 6749 Normal (applies to [facility] ( St ABSOLUTE cells/uL non-numeric Juan C's results) [facility], ) BAND,ABSOLUTE 67 Normal (applies to [facility] (St cells/uL non-numeric Juan C's results) [facility], ) LYMPHOCYTES, 2464 Normal (applies to [facility] ( St ABSOLUTE cells/uL non-numeric Juan C's results) [facility], ) MONOCYTES, 844 Normal (applies to [facility] (St ABSOLUTE cells/uL non-numeric Juan C's results) [facility], ) EOSINOPHILS, 278 Normal (applies to [facility] ( St ABSOLUTE cells/uL non-numeric Juna C's results) [facility], ) MYELOCYTES,AB 355 Above high normal [facility] ( St SOLUTE cells/uL [facility], ) BASOPHILS, 67 Normal (applies to [facility] (St ABSOLUTE cells/uL non-numeric Juan C's results) [facility], ) METAMYELOCYTE 278 Above high normal [facility] ( St S,ABSOLUTE cells/uL [facility], ) NUCLEATED RBC 3 /100 Above high normal [facility] ( St WBC [facility], ) NUCLEATED 278 Above high normal [facility] (St RBC,ABSOLUTE cells/uL [facility]'s [facility], ) ID Date Data Source [id number] 04/20/2020 02:15:00 PM EDT [facility] Name Value Range Interpretation Description Data Sup porting Code Source(s) Document(s ) SARS [facility] coronavirus 2 RNA This lab was ordered by [facility] and reported by [facility]. ID Date Data Source [id number] 04/17/2020 12:00:00 AM EDT [facility] Name Value Range Interpretation Code Description Data Supporting Source(s) Document(s ) Albumin, 741.5 Normal (applies to [facility] (St Urine ug/mL non-numeric Juan C's results) Medical, ) ID Date Data Source [id number] 04/17/2020 12:00:00 AM EDT [facility] Name Value Range Interpretation Description Data Sup porting Code Source(s) Document(s ) INR 1.1 Normal (applies [facility] (St to non-numeric Juan C's results) Medical, ) Prothrombin 11.4 sec Normal (applies [facility] (St Time to non-numeric Juan C's results) Medical, ) aPTT 28 sec Normal (applies [facility] (St to non-numeric [facility]'s results) Medical, ) ID Date Data Source [id number] 04/17/2020 12:00:00 AM EDT [facility] Name Value Range Interpretation Code Description Data Supporting Source(s) Document(s ) Creatinine 74.9 mg/dL Normal (applies to [facility] (S t , Urine non-numeric Juan C's results) Medical, ) Protein,To 185.1 Normal (applies to [facility] (St ruth,Urine mg/dL non-numeric Juan C's results) Medical, ) Protein/Cr 2471 mg/g Above high normal [facility] (St eat Ratio creat [facility], ) ID Date Data Source [id number] 04/17/2020 12:00:00 AM EDT [facility] Name Value Range Interpretation Description Data Sup porting Code Source(s) Document(s ) Specific gravity 1.015 Normal (applies [facility] (St of Pericardial to non-numeric Juan C's fluid by results) Medical, Refractometry PC) pH of Lower 6.5 Normal (applies [facility] (St respiratory to non-numeric [facility]'s specimen results) [facility], [facility]) Appearance of Clear Normal (applies [facility] (St Abdomen to non-numeric [facility] C's results) [facility], [facility]) Urine-Color Yellow Normal (applies [facility] (St to non-numeric [facility] C's results) [facility], PC) WBC Esterase Negative Normal (applies [facility] (St to non-numeric [facility] C's results) [facility], PC) Protein Abnormal [facility] (St [Mass/volume] in (applies to Juan C's Lower non-numeric Medical, respiratory results) PC) specimen Glucose Negative Normal (applies [facility] (St [Mass/volume] in to non-numeric Juan C's Urine collected results) Medical, for unspecified PC) duration Ketones Negative Normal (applies [facility] (St [Presence] in to non-numeric Juan C's Blood by Tablet results) Medical, ) Occult Blood Negative Normal (applies [facility] (St to non-numeric [facility] C's results) [facility], PC) Bilirubin Negative Normal (applies [facility] (St [Presence] in to non-numeric Juan C's Peritoneal fluid results) Medical, PC) Urobilinogen,Mel 0.2 mg/dL Normal (applies [facility] (St i-Qn to non-numeric [facility] C's results) [facility], PC) Nitrite, Urine Negative Normal (applies [facility] (S t to non-numeric [facility] C's results) [facility], PC) Microscopic See below: Normal (applies [facility] (St Examination to non-numeric Juan C's results) Medical, ) ID Date Data Source [id number] 04/17/2020 12:00:00 AM EDT [facility] Name Value Range Interpretation Description Data Sup porting Code Source(s) Document(s ) WBC 0-5 Normal (applies [facility] (St to non-numeric Juan C's results) Medical, PC) RBC 0-2 Normal (applies [facility] (St to non-numeric Juan C's results) [facility], PC) Epithelial None seen Normal (applies [facility] (St Cells (non to non-numeric Juan C's renal) results) Medical, PC) Mucus Threads Present Normal (applies [facility] (St to non-numeric Juan C's results) [facility], PC) Bacteria Few Normal (applies [facility] (St [Presence] in to non-numeric Juan C's Prostatic results) Medical, ) fluid by Light microscopy ID Date Data Source [id number] 04/17/2020 12:00:00 AM EDT [facility] ([facility], ) Name Value Range Interpretation Description Data Sup porting Code Source(s) Document(s ) Glucose 89 mg/dL Normal (applies [facility] (St [Mass/volume] in to non-numeric Juan C's Urine collected for results) Medical, unspecified ) duration Urea nitrogen 47 mg/dL Above high [facility] (St [Mass/volume] in normal Juan C's Serum or Plasma [facility], ) Creatinine 4.60 Above high [facility] (St [Interpretation] in mg/dL normal Juan C's Urine [facility], ) eGFR If NonAfricn 12 Below low normal [facility]GE N (St Am mL/min/[address], ) eGFR If Africn Am 13 Below low normal [facility] N (St mL/min/1 [facility], ) BUN/Creatinine 10 Normal (applies [facility] (S t Ratio to non-numeric Juan C's results) [facility], ) Sodium 136 Normal (applies [facility] (St [Moles/volume] in mmol/L to non-numeric Juan C's Serum or Plasma results) [facility], ) Potassium 4.8 Normal (applies [facility] (St [Mass/volume] in mmol/L to non-numeric Juan C's Blood results) [facility], ) Chloride 107 Above high [facility] (St [Moles/volume] in mmol/L normal Juan C's Serum or Plasma [facility], ) Carbon dioxide, 19 Below low normal [facility] (St total mmol/L Juan C's [Moles/volume] in Medical, Serum or Plasma PC) Calcium 8.6 Normal (applies [facility] (St [Moles/volume] in mg/dL to non-numeric Juan C's Urine collected for results) Medical, unspecified ) duration Microalbumin 4.0 g/dL Normal (applies [facility] (St [Mass/time] in to non-numeric Juan C's Urine collected for results) Medical, unspecified ) duration Protein 8.7 g/dL Above high [facility] (St [Mass/volume] in normal Juan C's Serum or Plasma [facility], ) Globulin, Total 4.7 g/dL Above high [facility] (St normal [facility], ) A/G Ratio 0.9 Below low normal [facility] ([facility], ) Bilirubin.total 0.2 Normal (applies [facility] ( St [Mass/volume] in mg/dL to non-numeric Juan C's Serum or Plasma results) [facility]) Alkaline 75 IU/L Normal (applies [facility] (St phosphatase to non-numeric Juan C's [Enzymatic results) Medical, activity/volume] in ) Serum, Plasma or Blood Aspartate 20 IU/L Normal (applies [facility] (St aminotransferase to non-numeric Juan C's [Enzymatic results) Medical, activity/volume] in ) Serum or Plasma Alanine 57 IU/L Above high [facility] (St aminotransferase normal Juan C's [Enzymatic Medical, activity/volume] in ) Serum or Plasma ID Date Data Source [id number] 04/17/2020 12:00:00 AM EDT [facility] ([facility], ) Name Value Range Interpretation Description Data Sup porting Code Source(s) Document(s ) Leukocytes 11.4 Above high normal [facility] (St [#/volume] in x10E3/uL Juan C's Blood by [facility]) Automated count Erythrocytes 2.79 Below low normal [facility] (St [#/volume] in x10E6/uL [facility]'s Blood by [facility]) Automated count Hemoglobin 9.3 g/dL Below low normal [facility] (St [Mass/volume] in [facility] Blood [facility]) Hematocrit 27.3 % Below low normal [facility] (St [Volume Juan C's Fraction] of [facility]) Blood by Automated count MCV 98 fL Above high normal [facility] ([facility], ) MCH 33.3 pg Above high normal [facility] ([facility]) MCHC 34.1 Normal (applies [facility] (St g/dL to non-numeric Juan C's results) [facility]) RDW 17.5 % Above high normal [facility] ([facility], ) Neutrophils [#] 71 % Normal (applies [facility] ( St in Body fluid by to non-numeric Juan C's Manual count results) [facility]) Platelets 146 Below low normal [facility] (St [#/area] in x10E3/uL [facility]'s Blood by [facility]) Microscopy high power field Lymphs 12 % Normal (applies [facility] (St to non-numeric Juan C's results) Medical, ) Monocytes 9 % Normal (applies [facility] (St [#/volume] in to non-numeric Juan C's Cord blood results) [facility], ) Eos 4 % Normal (applies [facility] (St to non-numeric Juan C's results) [facility], ) Basos 0 % Normal (applies [facility] (St to non-numeric Juan C's results) [facility], ) Neutrophils 8.2 Above high normal [facility] (St (Absolute) x10E3/uL Juan C's [facility], ) Lymphs 1.4 Normal (applies [facility] (St (Absolute) x10E3/uL to non-numeric Juan C's results) [facility], ) Monocytes(Absolu 1.0 Above high normal [facility] N (St te) x10E3/uL Juan C's [facility], ) Eos (Absolute) 0.4 Normal (applies [facility] (S t x10E3/uL to non-numeric Juan C's results) [facility], ) Baso (Absolute) 0.0 Normal (applies [facility] ( St x10E3/uL to non-numeric Juan C's results) [facility], ) Immature 4 % Normal (applies [facility] (St Granulocytes to non-numeric Juan C's results) [facility], ) Immature Grans 0.4 Above high normal [facility] (St (Abs) x10E3/uL Juan C's [facility], ) NRBC 1 % Above high normal [facility] ([facility], ) ID Date Data Source [id number] 04/17/2020 12:00:00 AM EDT [facility] ([facility], ) Name Value Range Interpretation Code Description Data Supporting Source(s) Document(s ) Albumin, 741.5 Normal (applies to [facility] (St Urine ug/mL non-numeric Juan C's results) [facility], ) ID Date Data Source [id number] 04/17/2020 12:00:00 AM EDT [facility] ([facility], ) Name Value Range Interpretation Description Data Sup porting Code Source(s) Document(s ) INR 1.1 Normal (applies [facility] (St to non-numeric Juan C's results) Medical, ) Prothrombin 11.4 sec Normal (applies [facility] (St Time to non-numeric Juan C's results) Medical, PC) aPTT 28 sec Normal (applies [facility] (St to non-numeric Juan C's results) Medical, PC) ID Date Data Source [id number] 04/17/2020 12:00:00 AM EDT [facility] ([facility], ) Name Value Range Interpretation Code Description Data Supporting Source(s) Document(s ) Creatinine 74.9 mg/dL Normal (applies to [facility] (S t , Urine non-numeric Juan C's results) Medical, PC) Protein,To 185.1 Normal (applies to [facility] (St ruth,Urine mg/dL non-numeric Juan C's results) Medical, PC) Protein/Cr 2471 mg/g Above high normal [facility] (St eat Ratio creat [facility], ) ID Date Data Source [id number] 04/17/2020 12:00:00 AM EDT [facility] ([facility], ) Name Value Range Interpretation Description Data Sup porting Code Source(s) Document(s ) Specific gravity 1.015 Normal (applies [facility] (St of Pericardial to non-numeric Juan C's fluid by results) Medical, Refractometry PC) pH of Lower 6.5 Normal (applies [facility] (St respiratory to non-numeric Juan C's specimen results) Medical, PC) Urine-Color Yellow Normal (applies [facility] (St to non-numeric Juan C's results) Medical, PC) Appearance of Clear Normal (applies [facility] (St Abdomen to non-numeric Juan C's results) Medical, PC) WBC Esterase Negative Normal (applies [facility] (St to non-numeric Juan C's results) Medical, PC) Protein Abnormal [facility] (St [Mass/volume] in (applies to Juan C's Lower non-numeric Medical, respiratory results) ) specimen Glucose Negative Normal (applies [facility] (St [Mass/volume] in to non-numeric Juan C's Urine collected results) Medical, for unspecified PC) duration Ketones Negative Normal (applies [facility] (St [Presence] in to non-numeric Juan C's Blood by Tablet results) Medical, PC) Bilirubin Negative Normal (applies [facility] (St [Presence] in to non-numeric Juan C's Peritoneal fluid results) Medical, PC) Occult Blood Negative Normal (applies [facility] (St to non-numeric Juan C's results) Medical, PC) Urobilinogen,Mel 0.2 mg/dL Normal (applies [facility] (St i-Qn to non-numeric Juan C's results) Medical, PC) Nitrite, Urine Negative Normal (applies [facility] (S t to non-numeric Juan C's results) Medical, PC) Microscopic See below: Normal (applies [facility] (St Examination to non-numeric Juan C's results) Medical, PC) ID Date Data Source [id number] 04/17/2020 12:00:00 AM EDT [facility] ([facility], ) Name Value Range Interpretation Description Data Sup porting Code Source(s) Document(s ) WBC 0-5 Normal (applies [facility] (St to non-numeric Juan C's results) Medical, PC) RBC 0-2 Normal (applies [facility] (St to non-numeric Juan C's results) Medical, PC) Epithelial None seen Normal (applies [facility] (St Cells (non to non-numeric Juan C's renal) results) Medical, PC) Mucus Threads Present Normal (applies [facility] (St to non-numeric Juan C's results) Medical, PC) Bacteria Few Normal (applies [facility] (St [Presence] in to non-numeric Juan C's Prostatic results) Medical, PC) fluid by Light microscopy ID Date Data Source [id number] 04/17/2020 12:00:00 AM EDT [facility] ([facility], ) Name Value Range Interpretation Description Data Sup porting Code Source(s) Document(s ) Glucose 89 mg/dL Normal (applies [facility] (St [Mass/volume] in to non-numeric Juan C's Urine collected for results) Medical, unspecified PC) duration Urea nitrogen 47 mg/dL Above high [facility] (St [Mass/volume] in normal Juan C's Serum or Plasma Medical, PC) Creatinine 4.60 Above high [facility] (St [Interpretation] in mg/dL normal Juan C's Urine Medical, PC) eGFR If NonAfricn 12 Below low normal [facility] N (St Am mL/min/1 Juan C's .73 Medical, PC) eGFR If Africn Am 13 Below low normal [facility] N (St mL/min/1 Juan C's .73 Medical, PC) BUN/Creatinine 10 Normal (applies [facility] (S t Ratio to non-numeric Juan C's results) Medical, PC) Sodium 136 Normal (applies [facility] (St [Moles/volume] in mmol/L to non-numeric Juan C's Serum or Plasma results) Medical, ) Potassium 4.8 Normal (applies [facility] (St [Mass/volume] in mmol/L to non-numeric Juan C's Blood results) [facility], ) Carbon dioxide, 19 Below low normal [facility] (St total mmol/L Juan C's [Moles/volume] in Medical, Serum or Plasma PC) Chloride 107 Above high [facility] (St [Moles/volume] in mmol/L normal Juan C's Serum or Plasma [facility], ) Calcium 8.6 Normal (applies [facility] (St [Moles/volume] in mg/dL to non-numeric Juan C's Urine collected for results) [facility], unspecified ) duration Protein 8.7 g/dL Above high [facility] (St [Mass/volume] in normal Juan C's Serum or Plasma [facility], ) Microalbumin 4.0 g/dL Normal (applies [facility] (St [Mass/time] in to non-numeric Juan C's Urine collected for results) [facility], unspecified ) duration Globulin, Total 4.7 g/dL Above high [facility] (St normal [facility], ) A/G Ratio 0.9 Below low normal [facility] ([facility], ) Bilirubin.total 0.2 Normal (applies [facility] ( St [Mass/volume] in mg/dL to non-numeric Juan C's Serum or Plasma results) [facility], ) Alkaline 75 IU/L Normal (applies [facility] (St phosphatase to non-numeric Juan C's [Enzymatic results) Medical, activity/volume] in ) Serum, Plasma or Blood Aspartate 20 IU/L Normal (applies [facility] (St aminotransferase to non-numeric Juan C's [Enzymatic results) Medical, activity/volume] in ) Serum or Plasma Alanine 57 IU/L Above high [facility] (St aminotransferase normal Juan C's [Enzymatic Medical, activity/volume] in ) Serum or Plasma ID Date Data Source [id number] 04/17/2020 12:00:00 AM EDT [facility] (St [facility], ) Name Value Range Interpretation Description Data Sup porting Code Source(s) Document(s ) Leukocytes 11.4 Above high normal [facility] (St [#/volume] in x10E3/uL Juan C's Blood by [facility], ) Automated count Hemoglobin 9.3 g/dL Below low normal [facility] (St [Mass/volume] in Juan C's Blood [facility], ) Erythrocytes 2.79 Below low normal [facility] (St [#/volume] in x10E6/uL Juan C's Blood by [facility]) Automated count Hematocrit 27.3 % Below low normal [facility] (St [Volume Juan C's Fraction] of [facility]) Blood by Automated count MCV 98 fL Above high normal [facility] ([facility], ) MCHC 34.1 Normal (applies [facility] (St g/dL to non-numeric Juan C's results) [facility]) MCH 33.3 pg Above high normal [facility] ([facility], ) RDW 17.5 % Above high normal [facility], ) Platelets 146 Below low normal [facility] (St [#/area] in x10E3/uL Juan C's Blood by [facility]) Microscopy high power field Neutrophils [#] 71 % Normal (applies [facility] ( St in Body fluid by to non-numeric Juan C's Manual count results) [facility]) Lymphs 12 % Normal (applies [facility] (St to non-numeric Juan C's results) [facility]) Monocytes 9 % Normal (applies [facility] (St [#/volume] in to non-numeric Juan C's Cord blood results) [facility]) Eos 4 % Normal (applies [facility] (St to non-numeric Juan C's results) [facility]) Basos 0 % Normal (applies [facility] (St to non-numeric Juan C's results) [facility]) Lymphs 1.4 Normal (applies [facility] (St (Absolute) x10E3/uL to non-numeric Juan C's results) [facility]) Neutrophils 8.2 Above high normal [facility] (St (Absolute) x10E3/uL Juan C's [facility]) Monocytes(Absolu 1.0 Above high normal [facility] N (St te) x10E3/uL [facility]'s [facility]) Eos (Absolute) 0.4 Normal (applies MEDGEN (S t x10E3/uL to non-numeric Juan C's results) [facility]) Baso (Absolute) 0.0 Normal (applies MEDGEN ( St x10E3/uL to non-numeric [facility]'s results) [facility]) Immature Grans 0.4 Above high normal MEDGEN (St (Abs) x10E3/uL [facility], ) Immature 4 % Normal (applies MEDGEN (St Granulocytes to non-numeric Juan [facility]'s results) [facility], ) NRBC 1 % Above high normal MEDGEN ([facility], ) ID Date Data Source [id number] 04/17/2020 12:00:00 AM EDT MEDGEN ([facility], ) Name Value Range Interpretation Code Description Data Supporting Source(s) Document(s ) Albumin, 741.5 Normal (applies to MEDGEN (St Urine ug/mL non-numeric Juan C's results) [facility], ) ID Date Data Source [id number] 04/17/2020 12:00:00 AM EDT MEDGEN ([facility], ) Name Value Range Interpretation Description Data Sup porting Code Source(s) Document(s ) INR 1.1 Normal (applies MEDGEN (St to non-numeric [facility]'s results) [facility], ) Prothrombin 11.4 sec Normal (applies MEDGEN (St Time to non-numeric [facility] C's results) [facility], ) aPTT 28 sec Normal (applies MEDGEN (St to non-numeric [facility] results) [facility], ) ID Date Data Source [id number] 04/17/2020 12:00:00 AM EDT MEDGEN ([facility], ) Name Value Range Interpretation Code Description Data Supporting Source(s) Document(s ) Creatinine 74.9 mg/dL Normal (applies to MEDGEN (S t , Urine non-numeric [facility]'s results) Medical, ) Protein,To 185.1 Normal (applies to MEDGEN (St ruth,Urine mg/dL non-numeric Juan C's results) [facility], ) Protein/Cr 2471 mg/g Above high normal MEDGEN (St eat Ratio creat [facility], ) ID Date Data Source [id number] 04/17/2020 12:00:00 AM EDT MEDGEN ([facility], ) Name Value Range Interpretation Description Data Sup porting Code Source(s) Document(s ) Specific gravity 1.015 Normal (applies MEDGEN (St of Pericardial to non-numeric Juan C's fluid by results) Medical, Refractometry ) pH of Lower 6.5 Normal (applies MEDGEN (St respiratory to non-numeric Juan C's specimen results) Medical, PC) Urine-Color Yellow Normal (applies MEDGEN (St to non-numeric [facility] C's results) Medical, ) Appearance of Clear Normal (applies MEDGEN (St Abdomen to non-numeric [facility] results) Medical, ) WBC Esterase Negative Normal (applies MEDGEN (St to non-numeric [facility]'s results) [facility], [facility]) Protein Abnormal MEDGEN (St [Mass/volume] in (applies to Juan C's Lower non-numeric Medical, respiratory results) PC) specimen Glucose Negative Normal (applies MEDGEN (St [Mass/volume] in to non-numeric Juan C's Urine collected results) Medical, for unspecified PC) duration Ketones Negative Normal (applies MEDGEN (St [Presence] in to non-numeric Juan C's Blood by Tablet results) Medical, ) Occult Blood Negative Normal (applies MEDGEN (St to non-numeric [facility] C's results) Medical, ) Bilirubin Negative Normal (applies MEDGEN (St [Presence] in to non-numeric Juan C's Peritoneal fluid results) Medical, ) Urobilinogen,Mel 0.2 mg/dL Normal (applies MEDGEN (St i-Qn to non-numeric [facility]'s results) [facility], [facility]) Nitrite, Urine Negative Normal (applies MEDGEN (S t to non-numeric [facility] results) Medical, ) Microscopic See below: Normal (applies MEDGEN (St Examination to non-numeric [facility]'s results) Medical, ) ID Date Data Source [id number] 04/17/2020 12:00:00 AM EDT [facility] ([facility], ) Name Value Range Interpretation Description Data Sup porting Code Source(s) Document(s ) WBC 0-5 Normal (applies MEDGEN (St to non-numeric [facility]'s results) Medical, PC) RBC 0-2 Normal (applies MEDGEN (St to non-numeric [facility]'s results) Medical, ) Mucus Threads Present Normal (applies MEDGEN (St to non-numeric [facility] results) Medical, ) Epithelial None seen Normal (applies MEDGEN (St Cells (non to non-numeric Juan C's renal) results) Medical, ) Bacteria Few Normal (applies MEDGEN (St [Presence] in to non-numeric Juan C's Prostatic results) Medical, ) fluid by Light microscopy ID Date Data Source [id number] 04/17/2020 12:00:00 AM EDT [facility] ([facility], ) Name Value Range Interpretation Description Data Sup porting Code Source(s) Document(s ) Glucose 89 mg/dL Normal (applies MEDGEN (St [Mass/volume] in to non-numeric Juan [facility]'s Urine collected for results) [facility], unspecified ) duration Urea nitrogen 47 mg/dL Above high MEDGEN (St [Mass/volume] in normal Juan C's Serum or Plasma [facility], ) Creatinine 4.60 Above high MEDGEN (St [Interpretation] in mg/dL normal Juan C's Urine [facility], ) eGFR If NonAfricn 12 Below low normal MEDGE N (St Am mL/min/[address], ) eGFR If Africn Am 13 Below low normal MEDGE N (St mL/min/[address], ) BUN/Creatinine 10 Normal (applies MEDGEN (S t Ratio to non-numeric Juan C's results) [facility], ) Sodium 136 Normal (applies MEDGEN (St [Moles/volume] in mmol/L to non-numeric Juan C's Serum or Plasma results) [facility], ) Potassium 4.8 Normal (applies MEDGEN (St [Mass/volume] in mmol/L to non-numeric Juan C's Blood results) [facility], ) Chloride 107 Above high MEDGEN (St [Moles/volume] in mmol/L normal Juan C's Serum or Plasma [facility], ) Carbon dioxide, 19 Below low normal MEDGEN (St total mmol/L Juan C's [Moles/volume] in Medical, Serum or Plasma PC) Calcium 8.6 Normal (applies MEDGEN (St [Moles/volume] in mg/dL to non-numeric [facility] C's Urine collected for results) Medical, unspecified ) duration Protein 8.7 g/dL Above high MEDGEN (St [Mass/volume] in normal Juan C's Serum or Plasma [facility], ) Microalbumin 4.0 g/dL Normal (applies MEDGEN (St [Mass/time] in to non-numeric Juan C's Urine collected for results) [facility], unspecified ) duration Globulin, Total 4.7 g/dL Above high MEDGEN (St normal [facility], ) A/G Ratio 0.9 Below low normal MEDGEN ([facility], ) Bilirubin.total 0.2 Normal (applies MEDGEN ( St [Mass/volume] in mg/dL to non-numeric Juan C's Serum or Plasma results) [facility], ) Alkaline 75 IU/L Normal (applies MEDGEN (St phosphatase to non-numeric Juan C's [Enzymatic results) Medical, activity/volume] in ) Serum, Plasma or Blood Aspartate 20 IU/L Normal (applies MEDGEN (St aminotransferase to non-numeric Juan C's [Enzymatic results) Medical, activity/volume] in ) Serum or Plasma Alanine 57 IU/L Above high MEDGEN (St aminotransferase normal Juan C's [Enzymatic Medical, activity/volume] in ) Serum or Plasma ID Date Data Source [id number] 04/17/2020 12:00:00 AM EDT MEDGEN ([facility], ) Name Value Range Interpretation Description Data Sup porting Code Source(s) Document(s ) Leukocytes 11.4 Above high normal MEDGEN (St [#/volume] in x10E3/uL Juan C's Blood by [facility], ) Automated count Erythrocytes 2.79 Below low normal MEDGEN (St [#/volume] in x10E6/uL [facility] Blood by [facility], ) Automated count Hemoglobin 9.3 g/dL Below low normal MEDGEN (St [Mass/volume] in Juan C's Blood [facility], ) Hematocrit 27.3 % Below low normal MEDGEN (St [Volume Juan C's Fraction] of [facility], ) Blood by Automated count MCV 98 fL Above high normal MEDGEN ([facility], ) MCH 33.3 pg Above high normal MEDGEN ([facility], ) MCHC 34.1 Normal (applies MEDGEN (St g/dL to non-numeric Juan C's results) [facility], ) RDW 17.5 % Above high normal MEDGEN ([facility], ) Platelets 146 Below low normal MEDGEN (St [#/area] in x10E3/uL Juan [facility] Blood by [facility], ) Microscopy high power field Neutrophils [#] 71 % Normal (applies MEDGEN ( St in Body fluid by to non-numeric Juan C's Manual count results) [facility], ) Lymphs 12 % Normal (applies MEDGEN (St to non-numeric Juan C's results) [facility], ) Monocytes 9 % Normal (applies MEDGEN (St [#/volume] in to non-numeric Juan C's Cord blood results) Medical, ) Eos 4 % Normal (applies MEDGEN (St to non-numeric [facility]'s results) Medical, ) Basos 0 % Normal (applies MEDGEN (St to non-numeric Juan C's results) Medical, ) Lymphs 1.4 Normal (applies MEDGEN (St (Absolute) x10E3/uL to non-numeric Juan C's results) Medical, ) Neutrophils 8.2 Above high normal MEDGEN (St (Absolute) x10E3/uL [facility], ) Monocytes(Absolu 1.0 Above high normal MEDGE N (St te) x10E3/uL Juan C's [facility], ) Eos (Absolute) 0.4 Normal (applies MEDGEN (S t x10E3/uL to non-numeric Juan C's results) Medical, ) Baso (Absolute) 0.0 Normal (applies MEDGEN ( St x10E3/uL to non-numeric [facility] C's results) Medical, ) Immature 4 % Normal (applies MEDGEN (St Granulocytes to non-numeric Juan C's results) Medical, ) Immature Grans 0.4 Above high normal MEDGEN (St (Abs) x10E3/uL Juan C's [facility], ) NRBC 1 % Above high normal [facility] ([facility], ) ID Date Data Source [id number] 04/17/2020 12:00:00 AM EDT [facility] ([facility], ) Name Value Range Interpretation Code Description Data Supporting Source(s) Document(s ) Albumin, 741.5 Normal (applies to MEDGEN (St Urine ug/mL non-numeric Juan C's results) Medical, ) ID Date Data Source [id number] 04/17/2020 12:00:00 AM EDT [facility] ([facility], ) Name Value Range Interpretation Description Data Sup porting Code Source(s) Document(s ) INR 1.1 Normal (applies MEDGEN (St to non-numeric Juan C's results) Medical, ) Prothrombin 11.4 sec Normal (applies MEDGEN (St Time to non-numeric Juan C's results) Medical, ) aPTT 28 sec Normal (applies MEDGEN (St to non-numeric Juan C's results) Medical, ) ID Date Data Source [id number] 04/17/2020 12:00:00 AM EDT [facility] ([facility], ) Name Value Range Interpretation Code Description Data Supporting Source(s) Document(s ) Creatinine 74.9 mg/dL Normal (applies to MEDGEN (S t , Urine non-numeric [facility]'s results) Medical, PC) Protein,To 185.1 Normal (applies to MEDGEN (St ruth,Urine mg/dL non-numeric [facility] C's results) Medical, PC) Protein/Cr 2471 mg/g Above high normal MEDGEN (St eat Ratio creat [facility], ) ID Date Data Source [id number] 04/17/2020 12:00:00 AM EDT [facility] ([facility], ) Name Value Range Interpretation Description Data Sup porting Code Source(s) Document(s ) Specific gravity 1.015 Normal (applies MEDGEN (St of Pericardial to non-numeric Juan C's fluid by results) Medical, Refractometry PC) pH of Lower 6.5 Normal (applies MEDGEN (St respiratory to non-numeric [facility] C's specimen results) Medical, PC) Urine-Color Yellow Normal (applies MEDGEN (St to non-numeric Juan C's results) Medical, PC) Appearance of Clear Normal (applies MEDGEN (St Abdomen to non-numeric [facility] C's results) Medical, PC) WBC Esterase Negative Normal (applies MEDGEN (St to non-numeric [facility] C's results) Medical, PC) Protein Abnormal MEDGEN (St [Mass/volume] in (applies to Juan C's Lower non-numeric Medical, respiratory results) PC) specimen Ketones Negative Normal (applies MEDGEN (St [Presence] in to non-numeric Juan C's Blood by Tablet results) Medical, PC) Glucose Negative Normal (applies MEDGEN (St [Mass/volume] in to non-numeric [facility] C's Urine collected results) Medical, for unspecified PC) duration Occult Blood Negative Normal (applies MEDGEN (St to non-numeric Juan C's results) Medical, PC) Urobilinogen,Mel 0.2 mg/dL Normal (applies MEDGEN (St i-Qn to non-numeric Juan C's results) Medical, PC) Bilirubin Negative Normal (applies MEDGEN (St [Presence] in to non-numeric Juan C's Peritoneal fluid results) Medical, PC) Nitrite, Urine Negative Normal (applies MEDGEN (S t to non-numeric [facility] C's results) Medical, PC) Microscopic See below: Normal (applies MEDGEN (St Examination to non-numeric [facility] C's results) Medical, PC) ID Date Data Source [id number] 04/17/2020 12:00:00 AM EDT [facility] ([facility], ) Name Value Range Interpretation Description Data Sup porting Code Source(s) Document(s ) RBC 0-2 Normal (applies MEDGEN (St to non-numeric Juan C's results) Medical, PC) WBC 0-5 Normal (applies MEDGEN (St to non-numeric Juan C's results) Medical, PC) Epithelial None seen Normal (applies MEDGEN (St Cells (non to non-numeric Juan C's renal) results) Medical, PC) Mucus Threads Present Normal (applies MEDGEN (St to non-numeric Juan C's results) Medical, PC) Bacteria Few Normal (applies MEDGEN (St [Presence] in to non-numeric Juan C's Prostatic results) Medical, PC) fluid by Light microscopy ID Date Data Source [id number] 04/17/2020 12:00:00 AM EDT MEDGEN ([facility], ) Name Value Range Interpretation Description Data Sup porting Code Source(s) Document(s ) Urea nitrogen 47 mg/dL Above high MEDGEN (St [Mass/volume] in normal Juan C's Serum or Plasma Medical, PC) Glucose 89 mg/dL Normal (applies MEDGEN (St [Mass/volume] in to non-numeric Juan C's Urine collected for results) Medical, unspecified PC) duration Creatinine 4.60 Above high MEDGEN (St [Interpretation] in mg/dL normal [facility] C's Urine Medical, PC) eGFR If NonAfricn 12 Below low normal MEDGE N (St Am mL/min/1 Juan C's .73 Medical, PC) eGFR If Africn Am 13 Below low normal MEDGE N (St mL/min/1 Juan C's .73 Medical, PC) Sodium 136 Normal (applies MEDGEN (St [Moles/volume] in mmol/L to non-numeric Juan C's Serum or Plasma results) Medical, PC) BUN/Creatinine 10 Normal (applies MEDGEN (S t Ratio to non-numeric Juan C's results) Medical, PC) Potassium 4.8 Normal (applies MEDGEN (St [Mass/volume] in mmol/L to non-numeric Juan C's Blood results) Medical, ) Carbon dioxide, 19 Below low normal MEDGEN (St total mmol/L Juan C's [Moles/volume] in Medical, Serum or Plasma PC) Chloride 107 Above high MEDGEN (St [Moles/volume] in mmol/L normal Juan C's Serum or Plasma [facility], ) Calcium 8.6 Normal (applies MEDGEN (St [Moles/volume] in mg/dL to non-numeric Juan C's Urine collected for results) [facility], unspecified ) duration Protein 8.7 g/dL Above high MEDGEN (St [Mass/volume] in normal Juan C's Serum or Plasma [facility], ) Microalbumin 4.0 g/dL Normal (applies MEDGEN (St [Mass/time] in to non-numeric Juan C's Urine collected for results) [facility], unspecified ) duration A/G Ratio 0.9 Below low normal [facility] ([facility], ) Globulin, Total 4.7 g/dL Above high MEDGEN (St normal [facility], ) Bilirubin.total 0.2 Normal (applies MEDGEN ( St [Mass/volume] in mg/dL to non-numeric Juan C's Serum or Plasma results) [facility], ) Aspartate 20 IU/L Normal (applies MEDGEN (St aminotransferase to non-numeric Juan C's [Enzymatic results) Medical, activity/volume] in ) Serum or Plasma Alkaline 75 IU/L Normal (applies MEDGEN (St phosphatase to non-numeric Juan C's [Enzymatic results) Medical, activity/volume] in ) Serum, Plasma or Blood Alanine 57 IU/L Above high MEDGEN (St aminotransferase normal Juan C's [Enzymatic Medical, activity/volume] in ) Serum or Plasma ID Date Data Source [id number] 04/17/2020 12:00:00 AM EDT [facility] ([facility], ) Name Value Range Interpretation Description Data Sup porting Code Source(s) Document(s ) Leukocytes 11.4 Above high normal MEDGEN (St [#/volume] in x10E3/uL Juan C's Blood by [facility], ) Automated count Erythrocytes 2.79 Below low normal MEDGEN (St [#/volume] in x10E6/uL Juan C's Blood by [facility], ) Automated count Hematocrit 27.3 % Below low normal MEDGEN (St [Volume Juan C's Fraction] of [facility]) Blood by Automated count Hemoglobin 9.3 g/dL Below low normal MEDGEN (St [Mass/volume] in Juan C's Blood [facility]) MCH 33.3 pg Above high normal MEDGEN ([facility]) MCV 98 fL Above high normal MEDGEN ([facility]) MCHC 34.1 Normal (applies MEDGEN (St g/dL to non-numeric Juan C's results) [facility]) Platelets 146 Below low normal MEDGEN (St [#/area] in x10E3/uL Juan C's Blood by [facility]) Microscopy high power field RDW 17.5 % Above high normal MEDGEN ([facility]) Lymphs 12 % Normal (applies MEDGEN (St to non-numeric Juan C's results) [facility]) Neutrophils [#] 71 % Normal (applies MEDGEN ( St in Body fluid by to non-numeric Juan C's Manual count results) [facility]) Monocytes 9 % Normal (applies MEDGEN (St [#/volume] in to non-numeric Juan C's Cord blood results) [facility]) Eos 4 % Normal (applies MEDGEN (St to non-numeric Juan C's results) [facility]) Basos 0 % Normal (applies MEDGEN (St to non-numeric Juan C's results) [facility]) Neutrophils 8.2 Above high normal MEDGEN (St (Absolute) x10E3/uL [facility]) Monocytes(Absolu 1.0 Above high normal MEDGE N (St te) x10E3/uL [facility]) Lymphs 1.4 Normal (applies MEDGEN (St (Absolute) x10E3/uL to non-numeric Juan C's results) [facility]) Baso (Absolute) 0.0 Normal (applies MEDGEN ( St x10E3/uL to non-numeric Juan C's results) [facility]) Eos (Absolute) 0.4 Normal (applies MEDGEN (S t x10E3/uL to non-numeric Juan C's results) [facility]) Immature 4 % Normal (applies MEDGEN (St Granulocytes to non-numeric Juan C's results) [facility]) Immature Grans 0.4 Above high normal MEDGEN (St (Abs) x10E3/uL [facility]) NRBC 1 % Above high normal [facility] ([facility], ) ID Date Data Source [id number] 04/17/2020 12:00:00 AM EDT [facility], ) Name Value Range Interpretation Code Description Data Supporting Source(s) Document(s ) Albumin, 741.5 Normal (applies to MEDGEN (St Urine ug/mL non-numeric Juan C's results) Medical, ) ID Date Data Source [id number] 04/17/2020 12:00:00 AM EDT [facility] ([facility], ) Name Value Range Interpretation Description Data Sup porting Code Source(s) Document(s ) INR 1.1 Normal (applies MEDGEN (St to non-numeric Juan C's results) Medical, PC) Prothrombin 11.4 sec Normal (applies MEDGEN (St Time to non-numeric Juan C's results) Medical, ) aPTT 28 sec Normal (applies MEDGEN (St to non-numeric Juan C's results) Medical, ) ID Date Data Source [id number] 04/17/2020 12:00:00 AM EDT [facility] ([facility], ) Name Value Range Interpretation Code Description Data Supporting Source(s) Document(s ) Creatinine 74.9 mg/dL Normal (applies to MEDGEN (S t , Urine non-numeric Juan C's results) Medical, ) Protein,To 185.1 Normal (applies to MEDGEN (St ruth,Urine mg/dL non-numeric [facility] results) Medical, ) Protein/Cr 2471 mg/g Above high normal MEDGEN (St eat Ratio creat [facility], ) ID Date Data Source [id number] 04/17/2020 12:00:00 AM EDT [facility] ([facility], ) Name Value Range Interpretation Description Data Sup porting Code Source(s) Document(s ) Specific gravity 1.015 Normal (applies MEDGEN (St of Pericardial to non-numeric Juan C's fluid by results) [facility] ) pH of Lower 6.5 Normal (applies MEDGEN (St respiratory to non-numeric Juan C's specimen results) Medical, PC) Urine-Color Yellow Normal (applies MEDGEN (St to non-numeric Juan C's results) Medical, PC) Appearance of Clear Normal (applies MEDGEN (St Abdomen to non-numeric Juan C's results) Medical, ) WBC Esterase Negative Normal (applies MEDGEN (St to non-numeric Juan C's results) Medical, ) Protein Abnormal MEDGEN (St [Mass/volume] in (applies to Juan C's Lower non-numeric Medical, respiratory results) ) specimen Glucose Negative Normal (applies MEDGEN (St [Mass/volume] in to non-numeric Juan C's Urine collected results) [facility], for unspecified PC) duration Ketones Negative Normal (applies MEDGEN (St [Presence] in to non-numeric Juan C's Blood by Tablet results) Medical, ) Occult Blood Negative Normal (applies MEDGEN (St to non-numeric Juan C's results) Medical, ) Bilirubin Negative Normal (applies MEDGEN (St [Presence] in to non-numeric Juan C's Peritoneal fluid results) Medical, ) Urobilinogen,Mel 0.2 mg/dL Normal (applies MEDGEN (St i-Qn to non-numeric Juan C's results) Medical, ) Nitrite, Urine Negative Normal (applies MEDGEN (S t to non-numeric Juan C's results) Medical, ) Microscopic See below: Normal (applies MEDGEN (St Examination to non-numeric Juan C's results) Medical, ) ID Date Data Source [id number] 04/17/2020 12:00:00 AM EDT [facility] ([facility], ) Name Value Range Interpretation Description Data Sup porting Code Source(s) Document(s ) WBC 0-5 Normal (applies MEDGEN (St to non-numeric Juan C's results) Medical, ) RBC 0-2 Normal (applies MEDGEN (St to non-numeric Juan C's results) Medical, ) Epithelial None seen Normal (applies MEDGEN (St Cells (non to non-numeric Juan C's renal) results) Medical, ) Mucus Threads Present Normal (applies MEDGEN (St to non-numeric Juan C's results) Medical, ) Bacteria Few Normal (applies MEDGEN (St [Presence] in to non-numeric Juan C's Prostatic results) Medical, ) fluid by Light microscopy ID Date Data Source [id number] 04/17/2020 12:00:00 AM EDT [facility] ([facility], ) Name Value Range Interpretation Description Data Sup porting Code Source(s) Document(s ) Glucose 89 mg/dL Normal (applies MEDGEN (St [Mass/volume] in to non-numeric Juan C's Urine collected for results) [facility], unspecified ) duration Urea nitrogen 47 mg/dL Above high MEDGEN (St [Mass/volume] in normal Juan C's Serum or Plasma [facility], ) Creatinine 4.60 Above high MEDGEN (St [Interpretation] in mg/dL normal Juan C's Urine [facility], ) eGFR If NonAfricn 12 Below low normal MEDGE N (St Am mL/min/1 [facility] [address], ) eGFR If Africn Am 13 Below low normal MEDGE N (St mL/min/1 [facility] .73 [facility], ) BUN/Creatinine 10 Normal (applies MEDGEN (S t Ratio to non-numeric Juan C's results) [facility], ) Sodium 136 Normal (applies MEDGEN (St [Moles/volume] in mmol/L to non-numeric Juan C's Serum or Plasma results) [facility], ) Potassium 4.8 Normal (applies MEDGEN (St [Mass/volume] in mmol/L to non-numeric Juan C's Blood results) [facility], ) Chloride 107 Above high MEDGEN (St [Moles/volume] in mmol/L normal Juan C's Serum or Plasma [facility], ) Carbon dioxide, 19 Below low normal MEDGEN (St total mmol/L Juan C's [Moles/volume] in Medical, Serum or Plasma PC) Calcium 8.6 Normal (applies MEDGEN (St [Moles/volume] in mg/dL to non-numeric Juan C's Urine collected for results) Medical, unspecified PC) duration Protein 8.7 g/dL Above high [facility] (St [Mass/volume] in normal Juan C's Serum or Plasma [facility], ) Microalbumin 4.0 g/dL Normal (applies [facility] (St [Mass/time] in to non-numeric Juan C's Urine collected for results) Medical, unspecified ) duration Globulin, Total 4.7 g/dL Above high [facility] (St normal Juan C's [facility], ) A/G Ratio 0.9 Below low normal [facility] ([facility], ) Bilirubin.total 0.2 Normal (applies [facility] ( St [Mass/volume] in mg/dL to non-numeric Juan C's Serum or Plasma results) [facility], ) Alkaline 75 IU/L Normal (applies [facility] (St phosphatase to non-numeric Juan C's [Enzymatic results) Medical, activity/volume] in ) Serum, Plasma or Blood Aspartate 20 IU/L Normal (applies [facility] (St aminotransferase to non-numeric Juan C's [Enzymatic results) Medical, activity/volume] in ) Serum or Plasma Alanine 57 IU/L Above high [facility] (St aminotransferase normal Juan C's [Enzymatic Medical, activity/volume] in ) Serum or Plasma ID Date Data Source [id number] 04/17/2020 12:00:00 AM EDT [facility] ([facility], ) Name Value Range Interpretation Description Data Sup porting Code Source(s) Document(s ) Leukocytes 11.4 Above high normal [facility] (St [#/volume] in x10E3/uL Juan C's Blood by [facility]) Automated count Erythrocytes 2.79 Below low normal [facility] (St [#/volume] in x10E6/uL Juan C's Blood by [facility]) Automated count Hemoglobin 9.3 g/dL Below low normal [facility] (St [Mass/volume] in [facility] Blood [facility], ) Hematocrit 27.3 % Below low normal [facility] (St [Volume Juan C's Fraction] of [facility], ) Blood by Automated count MCV 98 fL Above high normal [facility] ([facility], ) MCH 33.3 pg Above high normal [facility] ([facility], ) MCHC 34.1 Normal (applies [facility] (St g/dL to non-numeric Juan C's results) [facility], ) RDW 17.5 % Above high normal [facility] ([facility], ) Platelets 146 Below low normal [facility] (St [#/area] in x10E3/uL Juan C's Blood by [facility]) Microscopy high power field Neutrophils [#] 71 % Normal (applies [facility] ( St in Body fluid by to non-numeric Juan C's Manual count results) [facility]) Lymphs 12 % Normal (applies [facility] (St to non-numeric Juan C's results) [facility]) Monocytes 9 % Normal (applies [facility] (St [#/volume] in to non-numeric Juan C's Cord blood results) [facility]) Eos 4 % Normal (applies [facility] (St to non-numeric Juan C's results) [facility]) Basos 0 % Normal (applies [facility] (St to non-numeric Juan C's results) Medical, ) Neutrophils 8.2 Above high normal [facility] (St (Absolute) x10E3/uL Juan C's [facility], ) Lymphs 1.4 Normal (applies [facility] (St (Absolute) x10E3/uL to non-numeric Juan C's results) Medical, ) Monocytes(Absolu 1.0 Above high normal MEDGE N (St te) x10E3/uL Juan C's [facility], ) Eos (Absolute) 0.4 Normal (applies [facility] (S t x10E3/uL to non-numeric Juan C's results) Medical, ) Baso (Absolute) 0.0 Normal (applies [facility] ( St x10E3/uL to non-numeric Juan C's results) Medical, ) Immature 4 % Normal (applies [facility] (St Granulocytes to non-numeric Juan C's results) Medical, ) Immature Grans 0.4 Above high normal [facility] (St (Abs) x10E3/uL Juan C's [facility], ) NRBC 1 % Above high normal [facility] ([facility], ) ID Date Data Source [id number] 04/17/2020 12:00:00 AM EDT [facility] ([facility], ) Name Value Range Interpretation Code Description Data Supporting Source(s) Document(s ) Albumin, 741.5 Normal (applies to [facility] (St Urine ug/mL non-numeric Juan C's results) [facility], ) ID Date Data Source [id number] 04/17/2020 12:00:00 AM EDT [facility] ([facility], ) Name Value Range Interpretation Description Data Sup porting Code Source(s) Document(s ) INR 1.1 Normal (applies [facility] (St to non-numeric Juan C's results) Medical, ) Prothrombin 11.4 sec Normal (applies [facility] (St Time to non-numeric Juan C's results) Medical, ) aPTT 28 sec Normal (applies [facility] (St to non-numeric Juan C's results) Medical, ) ID Date Data Source [id number] 04/17/2020 12:00:00 AM EDT [facility] ([facility], ) Name Value Range Interpretation Code Description Data Supporting Source(s) Document(s ) Protein,To 185.1 Normal (applies to [facility] (St ruth,Urine mg/dL non-numeric Juan C's results) Medical, ) Creatinine 74.9 mg/dL Normal (applies to [facility] (S t , Urine non-numeric Juan C's results) Medical, ) Protein/Cr 2471 mg/g Above high normal [facility] (St eat Ratio creat Juan C's [facility], ) ID Date Data Source [id number] 04/17/2020 12:00:00 AM EDT [facility] ([facility], ) Name Value Range Interpretation Description Data Sup porting Code Source(s) Document(s ) Specific gravity 1.015 Normal (applies [facility] (St of Pericardial to non-numeric Juan C's fluid by results) Medical, Refractometry PC) pH of Lower 6.5 Normal (applies [facility] (St respiratory to non-numeric Juan C's specimen results) Medical, ) Urine-Color Yellow Normal (applies [facility] (St to non-numeric Juan C's results) Medical, ) Appearance of Clear Normal (applies [facility] (St Abdomen to non-numeric Juan C's results) Medical, ) Protein Abnormal [facility] (St [Mass/volume] in (applies to Juan C's Lower non-numeric Medical, respiratory results) ) specimen WBC Esterase Negative Normal (applies [facility] (St to non-numeric Juan C's results) Medical, ) Ketones Negative Normal (applies [facility] (St [Presence] in to non-numeric Juan C's Blood by Tablet results) Medical, ) Glucose Negative Normal (applies [facility] (St [Mass/volume] in to non-numeric Juan C's Urine collected results) Medical, for unspecified PC) duration Occult Blood Negative Normal (applies [facility] (St to non-numeric Juan C's results) Medical, ) Urobilinogen,Mel 0.2 mg/dL Normal (applies [facility] (St i-Qn to non-numeric Juan C's results) Medical, ) Bilirubin Negative Normal (applies [facility] (St [Presence] in to non-numeric Juan C's Peritoneal fluid results) Medical, ) Nitrite, Urine Negative Normal (applies [facility] (S t to non-numeric Juan C's results) Medical, ) Microscopic See below: Normal (applies [facility] (St Examination to non-numeric Juan C's results) Medical, ) ID Date Data Source [id number] 04/17/2020 12:00:00 AM EDT [facility] ([facility], ) Name Value Range Interpretation Description Data Sup porting Code Source(s) Document(s ) WBC 0-5 Normal (applies [facility] (St to non-numeric Juan C's results) Medical, PC) RBC 0-2 Normal (applies [facility] (St to non-numeric Juan C's results) Medical, PC) Epithelial None seen Normal (applies [facility] (St Cells (non to non-numeric Juan C's renal) results) Medical, PC) Mucus Threads Present Normal (applies [facility] (St to non-numeric Juan C's results) Medical, PC) Bacteria Few Normal (applies [facility] (St [Presence] in to non-numeric Juan C's Prostatic results) Medical, ) fluid by Light microscopy ID Date Data Source [id number] 04/17/2020 12:00:00 AM EDT [facility] ([facility], ) Name Value Range Interpretation Description Data Sup porting Code Source(s) Document(s ) Glucose 89 mg/dL Normal (applies [facility] (St [Mass/volume] in to non-numeric Juan C's Urine collected for results) Medical, unspecified PC) duration Urea nitrogen 47 mg/dL Above high [facility] (St [Mass/volume] in normal Juan C's Serum or Plasma Medical, ) eGFR If NonAfricn 12 Below low normal MEDGE N (St Am mL/min/1 Juan C's .73 Medical, PC) Creatinine 4.60 Above high [facility] (St [Interpretation] in mg/dL normal Juan C's Urine Medical, PC) BUN/Creatinine 10 Normal (applies [facility] (S t Ratio to non-numeric Juan C's results) Medical, PC) eGFR If Africn Am 13 Below low normal [facility]GE N (St mL/min/1 Juan C's .73 Medical, PC) Sodium 136 Normal (applies [facility] (St [Moles/volume] in mmol/L to non-numeric Juan C's Serum or Plasma results) Medical, PC) Chloride 107 Above high [facility] (St [Moles/volume] in mmol/L normal Juan C's Serum or Plasma Medical, PC) Potassium 4.8 Normal (applies [facility] (St [Mass/volume] in mmol/L to non-numeric Juan C's Blood results) Medical, PC) Carbon dioxide, 19 Below low normal [facility] (St total mmol/L Juan C's [Moles/volume] in Medical, Serum or Plasma ) Calcium 8.6 Normal (applies [facility] (St [Moles/volume] in mg/dL to non-numeric Juan C's Urine collected for results) [facility], unspecified ) duration Protein 8.7 g/dL Above high [facility] (St [Mass/volume] in normal Juan C's Serum or Plasma [facility], ) Microalbumin 4.0 g/dL Normal (applies [facility] (St [Mass/time] in to non-numeric Juan C's Urine collected for results) [facility], unspecified ) duration Globulin, Total 4.7 g/dL Above high [facility] (St normal [facility], ) A/G Ratio 0.9 Below low normal [facility] ([facility], ) Bilirubin.total 0.2 Normal (applies [facility] ( St [Mass/volume] in mg/dL to non-numeric Juan C's Serum or Plasma results) [facility], ) Alkaline 75 IU/L Normal (applies [facility] (St phosphatase to non-numeric Juan C's [Enzymatic results) Medical, activity/volume] in ) Serum, Plasma or Blood Aspartate 20 IU/L Normal (applies [facility] (St aminotransferase to non-numeric Juan C's [Enzymatic results) Medical, activity/volume] in ) Serum or Plasma Alanine 57 IU/L Above high [facility] (St aminotransferase normal Juan C's [Enzymatic Medical, activity/volume] in ) Serum or Plasma ID Date Data Source [id number] 04/17/2020 12:00:00 AM EDT [facility] ([facility], ) Name Value Range Interpretation Description Data Sup porting Code Source(s) Document(s ) Erythrocytes 2.79 Below low normal [facility] (St [#/volume] in x10E6/uL Juan C's Blood by [facility], ) Automated count Leukocytes 11.4 Above high normal [facility] (St [#/volume] in x10E3/uL Juan C's Blood by [facility]) Automated count Hemoglobin 9.3 g/dL Below low normal [facility] (St [Mass/volume] in Juan C's Blood [facility]) Hematocrit 27.3 % Below low normal [facility] (St [Volume Juan C's Fraction] of [facility], ) Blood by Automated count MCV 98 fL Above high normal [facility] ([facility], ) MCHC 34.1 Normal (applies [facility] (St g/dL to non-numeric Juan C's results) [facility]) MCH 33.3 pg Above high normal [facility] ([facility], ) RDW 17.5 % Above high normal [facility] ([facility], ) Neutrophils [#] 71 % Normal (applies [facility] ( St in Body fluid by to non-numeric Juan C's Manual count results) [facility]) Platelets 146 Below low normal [facility] (St [#/area] in x10E3/uL Juan C's Blood by [facility], ) Microscopy high power field Monocytes 9 % Normal (applies [facility] (St [#/volume] in to non-numeric Juan C's Cord blood results) [facility]) Lymphs 12 % Normal (applies [facility] (St to non-numeric Juan C's results) [facility]) Eos 4 % Normal (applies [facility] (St to non-numeric Juan C's results) [facility]) Neutrophils 8.2 Above high normal [facility] (St (Absolute) x10E3/uL [facility]) Basos 0 % Normal (applies [facility] (St to non-numeric Juan C's results) [facility]) Lymphs 1.4 Normal (applies [facility] (St (Absolute) x10E3/uL to non-numeric Juan C's results) [facility]) Monocytes(Absolu 1.0 Above high normal [facility]GE N (St te) x10E3/uL [facility]) Eos (Absolute) 0.4 Normal (applies [facility] (S t x10E3/uL to non-numeric Juan C's results) [facility]) Immature 4 % Normal (applies [facility] (St Granulocytes to non-numeric Juan C's results) [facility]) Baso (Absolute) 0.0 Normal (applies [facility] ( St x10E3/uL to non-numeric Juan C's results) [facility]) Immature Grans 0.4 Above high normal [facility] (St (Abs) x10E3/uL [facility]) NRBC 1 % Above high normal [facility] ([facility], ) ID Date Data Source [id number] 04/17/2020 12:00:00 AM EDT [facility] ([facility], ) Name Value Range Interpretation Code Description Data Supporting Source(s) Document(s ) Albumin, 741.5 Normal (applies to [facility] (St Urine ug/mL non-numeric Juan C's results) Medical, ) ID Date Data Source [id number] 04/17/2020 12:00:00 AM EDT [facility], ) Name Value Range Interpretation Description Data Sup porting Code Source(s) Document(s ) INR 1.1 Normal (applies [facility] (St to non-numeric Juan C's results) Medical, ) Prothrombin 11.4 sec Normal (applies [facility] (St Time to non-numeric Juan C's results) Medical, ) aPTT 28 sec Normal (applies [facility] (St to non-numeric Juan C's results) Medical, ) ID Date Data Source [id number] 04/17/2020 12:00:00 AM EDT [facility] ([facility], ) Name Value Range Interpretation Code Description Data Supporting Source(s) Document(s ) Creatinine 74.9 mg/dL Normal (applies to [facility] (S t , Urine non-numeric Juan C's results) Medical, ) Protein,To 185.1 Normal (applies to [facility] (St ruth,Urine mg/dL non-numeric Juan C's results) Medical, ) Protein/Cr 2471 mg/g Above high normal [facility] (St eat Ratio creat [facility], ) ID Date Data Source [id number] 04/17/2020 12:00:00 AM EDT [facility] ([facility], ) Name Value Range Interpretation Description Data Sup porting Code Source(s) Document(s ) Specific gravity 1.015 Normal (applies [facility] (St of Pericardial to non-numeric Juan C's fluid by results) [facility] ) pH of Lower 6.5 Normal (applies [facility] (St respiratory to non-numeric Juan C's specimen results) Medical, ) Urine-Color Yellow Normal (applies [facility] (St to non-numeric Juan C's results) Medical, ) Appearance of Clear Normal (applies [facility] (St Abdomen to non-numeric Juan C's results) Medical, ) WBC Esterase Negative Normal (applies [facility] (St to non-numeric Juan C's results) Medical, PC) Glucose Negative Normal (applies [facility] (St [Mass/volume] in to non-numeric Juan C's Urine collected results) Medical, for unspecified PC) duration Protein Abnormal [facility] (St [Mass/volume] in (applies to Juan C's Lower non-numeric Medical, respiratory results) ) specimen Ketones Negative Normal (applies [facility] (St [Presence] in to non-numeric Juan C's Blood by Tablet results) Medical, ) Occult Blood Negative Normal (applies [facility] (St to non-numeric Juan C's results) Medical, ) Bilirubin Negative Normal (applies [facility] (St [Presence] in to non-numeric Ujan C's Peritoneal fluid results) Medical, ) Urobilinogen,Mel 0.2 mg/dL Normal (applies [facility] (St i-Qn to non-numeric Juan C's results) Medical, ) Nitrite, Urine Negative Normal (applies [facility] (S t to non-numeric Juan C's results) Medical, ) Microscopic See below: Normal (applies [facility] (St Examination to non-numeric Juan C's results) Medical, ) ID Date Data Source [id number] 04/17/2020 12:00:00 AM EDT [facility] ([facility] [employer] [facility], ) Name Value Range Interpretation Description Data Sup porting Code Source(s) Document(s ) WBC 0-5 Normal (applies [facility] (St to non-numeric Juan C's results) Medical, ) RBC 0-2 Normal (applies [facility] (St to non-numeric Juan C's results) Medical, ) Epithelial None seen Normal (applies [facility] (St Cells (non to non-numeric Juan C's renal) results) Medical, ) Mucus Threads Present Normal (applies [facility] (St to non-numeric Juan C's results) Medical, ) Bacteria Few Normal (applies [facility] (St [Presence] in to non-numeric Juan C's Prostatic results) Medical, ) fluid by Light microscopy ID Date Data Source [id number] 04/17/2020 12:00:00 AM EDT [facility] ([facility], ) Name Value Range Interpretation Description Data Sup porting Code Source(s) Document(s ) Glucose 89 mg/dL Normal (applies [facility] (St [Mass/volume] in to non-numeric Juan C's Urine collected for results) Medical, unspecified PC) duration Creatinine 4.60 Above high [facility] (St [Interpretation] in mg/dL normal Juan C's Urine [facility], ) Urea nitrogen 47 mg/dL Above high [facility] (St [Mass/volume] in normal Juan C's Serum or Plasma [facility], ) eGFR If NonAfricn 12 Below low normal MEDGE N (St Am mL/min/1 [facility] .73 [facility], ) eGFR If Africn Am 13 Below low normal MEDGE N (St mL/min/1 [facility] .73 [facility], ) BUN/Creatinine 10 Normal (applies [facility] (S t Ratio to non-numeric Juan C's results) [facility], ) Sodium 136 Normal (applies [facility] (St [Moles/volume] in mmol/L to non-numeric Juan C's Serum or Plasma results) [facility], ) Potassium 4.8 Normal (applies [facility] (St [Mass/volume] in mmol/L to non-numeric Juan C's Blood results) [facility], ) Chloride 107 Above high [facility] (St [Moles/volume] in mmol/L normal Juan C's Serum or Plasma [facility], ) Carbon dioxide, 19 Below low normal [facility] (St total mmol/L Juan C's [Moles/volume] in Medical, Serum or Plasma PC) Calcium 8.6 Normal (applies [facility] (St [Moles/volume] in mg/dL to non-numeric Juan C's Urine collected for results) [facility], unspecified ) duration Protein 8.7 g/dL Above high [facility] (St [Mass/volume] in normal Juan C's Serum or Plasma [facility], ) Microalbumin 4.0 g/dL Normal (applies [facility] (St [Mass/time] in to non-numeric Juan C's Urine collected for results) [facility], unspecified PC) duration Globulin, Total 4.7 g/dL Above high [facility] (St normal Juan C's [facility], ) A/G Ratio 0.9 Below low normal [facility] ([facility], ) Bilirubin.total 0.2 Normal (applies [facility] ( St [Mass/volume] in mg/dL to non-numeric Juan C's Serum or Plasma results) [facility], ) Alkaline 75 IU/L Normal (applies [facility] (St phosphatase to non-numeric Juan C's [Enzymatic results) Medical, activity/volume] in ) Serum, Plasma or Blood Aspartate 20 IU/L Normal (applies [facility] (St aminotransferase to non-numeric Juan C's [Enzymatic results) Medical, activity/volume] in ) Serum or Plasma Alanine 57 IU/L Above high [facility] (St aminotransferase normal Juan C's [Enzymatic Medical, activity/volume] in ) Serum or Plasma ID Date Data Source [id number] 04/17/2020 12:00:00 AM EDT [facility] ([facility], ) Name Value Range Interpretation Description Data Sup porting Code Source(s) Document(s ) Leukocytes 11.4 Above high normal [facility] (St [#/volume] in x10E3/uL Juan C's Blood by [facility]) Automated count Erythrocytes 2.79 Below low normal [facility] (St [#/volume] in x10E6/uL [facility]'s Blood by [facility]) Automated count Hemoglobin 9.3 g/dL Below low normal [facility] (St [Mass/volume] in [facility] Blood [facility], ) MCV 98 fL Above high normal [facility] ([facility], ) Hematocrit 27.3 % Below low normal [facility] (St [Volume Juan C's Fraction] of [facility], ) Blood by Automated count MCH 33.3 pg Above high normal [facility] ([facility], ) MCHC 34.1 Normal (applies [facility] (St g/dL to non-numeric Juan C's results) [facility], ) Platelets 146 Below low normal [facility] (St [#/area] in x10E3/uL Juan C's Blood by [facility], ) Microscopy high power field RDW 17.5 % Above high normal [facility] ([facility], ) Neutrophils [#] 71 % Normal (applies [facility]GEN ( St in Body fluid by to non-numeric Juan C's Manual count results) [facility]) Lymphs 12 % Normal (applies [facility] (St to non-numeric Juan C's results) [facility]) Monocytes 9 % Normal (applies [facility] (St [#/volume] in to non-numeric Juan C's Cord blood results) [facility]) Basos 0 % Normal (applies [facility] (St to non-numeric Juan C's results) [facility]) Eos 4 % Normal (applies [facility] (St to non-numeric Juan C's results) [facility]) Neutrophils 8.2 Above high normal [facility] (St (Absolute) x10E3/uL [facility], ) Lymphs 1.4 Normal (applies [facility] (St (Absolute) x10E3/uL to non-numeric Juan C's results) Medical, ) Monocytes(Absolu 1.0 Above high normal [facility] N (St te) x10E3/uL Juan C's [facility], ) Eos (Absolute) 0.4 Normal (applies [facility]GEN (S t x10E3/uL to non-numeric Juan C's results) Medical, ) Baso (Absolute) 0.0 Normal (applies [facility]GEN ( St x10E3/uL to non-numeric Juan C's results) Medical, ) Immature 4 % Normal (applies [facility] (St Granulocytes to non-numeric Jua Nc's results) [facility], ) Immature Grans 0.4 Above high normal [facility] (St (Abs) x10E3/uL [facility], ) NRBC 1 % Above high normal [facility] ([facility], ) ID Date Data Source [id number] 04/06/2020 09:40:00 PM EDT [facility] Name Value Range Interpretation Description Data Sup porting Code Source(s) Document(s ) SARS [facility] CORONAVIRUS 2 RNA This lab was ordered by [facility] and reported by [facility]. ID Date Data Source [id number] 03/27/2020 06:50:00 PM EDT [facility] Name Value Range Interpretation Description Data Sup porting Code Source(s) Document(s ) SARS [facility] CORONAVIRUS 2 RNA This lab was ordered by [facility] and reported by [facility]. ID Date Data Source [id number] 03/22/2020 12:00:00 AM EDT [facility] ([facility], ) Name Value Range Interpretation Code Description Data Lisa rce(s) Supporting Document(s ) ID Date Data Source [id number] 03/22/2020 12:00:00 AM EDT [facility] ([facility], ) Name Value Range Interpretation Code Description Data Supporting Source(s) Document(s ) PTH, Intact 10 pg/mL Below low normal [facility] ([facility], ) ID Date Data Source [id number] 03/22/2020 12:00:00 AM EDT [facility] ([facility], ) Name Value Range Interpretation Code Description Data Supporting Source(s) Document(s ) Ferritin, 349 ng/mL Normal (applies to [facility] (St Serum non-numeric Juan C's results) [facility], ) ID Date Data Source [id number] 03/22/2020 12:00:00 AM EDT [facility] ([facility], ) Name Value Range Interpretation Description Data Sup porting Code Source(s) Document(s ) Deprecated 5.4 mg/dL Above high normal MEDGEN (St Phosphorus Juan C's [Mass/time] in [facility], ) 24 hour Urine ID Date Data Source [id number] 03/22/2020 12:00:00 AM EDT [facility] ([facility], ) Name Value Range Interpretation Code Description Data Lisa rce(s) Supporting Document(s ) RAGINI Normal (applies to MEDGEN (St Interpreta non-numeric results) Juan C's M edical, tion:U ) ID Date Data Source [id number] 03/22/2020 12:00:00 AM EDT [facility] ([facility], ) Name Value Range Interpretation Description Data Sup porting Code Source(s) Document(s ) Vitamin D, 30.6 Normal (applies to MEDGEN (St 25-Hydroxy ng/mL non-numeric Juan C's results) [facility], ) ID Date Data Source [id number] 03/22/2020 12:00:00 AM EDT [facility] ([facility], ) Name Value Range Interpretation Description Data Sup porting Code Source(s) Document(s ) Free [place] 141.85 Above high normal MEDGEN (St Lt mg/L Juan C's Chains,[facility], ) Free Lambda 110.44 Above high normal MEDGEN (St Lt mg/L Juan C's Chains,[facility], ) [place] 1.28 Normal (applies to MEDGEN (S t a Ratio,U non-numeric Juan C's results) [facility], ) ID Date Data Source [id number] 03/22/2020 12:00:00 AM EDT [facility] ([facility], ) Name Value Range Interpretation Description Data Sup porting Code Source(s) Document(s ) Free [place] 41.1 mg/L Above high normal MEDGEN (St Lt Chains,S Juan C's [facility], ) Free Lambda 176.0 mg/L Above high normal MEDGEN (S t Lt Chains,S [facility], ) [place] 0.23 Below low normal MEDGEN (St a Ratio,S [facility]) ID Date Data Source [id number] 03/22/2020 12:00:00 AM EDT MED[facility] ([facility]) Name Value Range Interpretation Code Description Data Supporting Source(s) Document(s ) Creatinine 94.7 mg/dL Normal (applies to MEDGEN (S t , Urine non-numeric Juan C's results) [facility]) Protein/Cr 1072 mg/g Above high normal [facility]GEN (St eat Ratio creat [facility]) ID Date Data Source [id number] 03/22/2020 12:00:00 AM EDT MED[facility] ([facility]) Name Value Range Interpretation Description Data Sup porting Code Source(s) Document(s ) Immunofixation Normal (applies MEDGEN (S t Result, Serum to non-numeric Juan C's results) [facility], ) Immunoglobulin G, 3867 Above high normal MEDG EN (St Qn, Serum mg/dL [facility]) Immunoglobulin A, 17 mg/dL Below low normal MEDGE N (St Qn, Serum [facility]) Immunoglobulin M, 8 mg/dL Below low normal MEDGE N (St Qn, Serum [facility]) ID Date Data Source [id number] 03/22/2020 12:00:00 AM EDT [facility] ([facility]) Name Value Range Interpretation Description Data Sup porting Code Source(s) Document(s ) Iron 248 ug/dL Below low normal MED[facility] (St Bind.Cap.(TIBC Juan C's ) [facility]) UIBC 172 ug/dL Normal (applies to [facility] (St non-numeric Juan C's results) [facility]) Iron 76 ug/dL Normal (applies to [facility] (St [Mass/volume] non-numeric Juan C's in Serum or results) [facility]) Plasma Iron 31 % Normal (applies to [facility] (St saturation non-numeric Juan C's [Mass results) [facility]) Fraction] in Serum or Plasma ID Date Data Source [id number] 03/22/2020 12:00:00 AM EDT MED[facility] ([facility]) Name Value Range Interpretation Description Data Sup porting Code Source(s) Document(s ) Protein,Tot 101.5 Normal (applies to [facility]GEN (S t al,Urine mg/dL non-numeric Juan C's results) Medical, PC) Albumin, U 36.2 % Normal (applies to [facility] (St non-numeric Juan C's results) Medical, PC) Alpha-1-Nadine 5.7 % Normal (applies to [facility] (S t bulin, U non-numeric Juan C's results) Medical, PC) Alpha-2-Nadine 12.8 % Normal (applies to [facility]GEN (S t bulin, U non-numeric Juan C's results) Medical, PC) Beta 29.7 % Normal (applies to [facility] (St Globulin, U non-numeric Juan C's results) Medical, PC) M-Kevyn, % Comment: Normal (applies to [facility] (St non-numeric Juan C's results) Medical, PC) Gamma 15.6 % Normal (applies to [facility] (St Globulin, U non-numeric Juan C's results) Medical, PC) Please Normal (applies to [facility] (St note: non-numeric Juan C's results) Medical, PC) PDF . Normal (applies to [facility] (St non-numeric Juan C's results) Medical, PC) ID Date Data Source [id number] 03/22/2020 12:00:00 AM EDT [facility] ([facility], ) Name Value Range Interpretation Description Data Sup porting Code Source(s) Document(s ) Microalbumin 4.0 g/dL Normal (applies [facility] (St [Mass/time] in to non-numeric Juan C's Urine collected results) Medical, for unspecified PC) duration Xnwjo-5-Gewikjpg 0.2 g/dL Normal (applies [facility]GEN (St to non-numeric Juan C's results) Medical, PC) Oktqb-9-Zsuafeve 0.8 g/dL Normal (applies [facility] (St to non-numeric Juan C's results) Medical, PC) Beta globulin 0.7 g/dL Normal (applies [facility] (St [Mass/volume] in to non-numeric Juan C's Urine by results) Medical, Electrophoresis PC) Gamma globulin 3.5 g/dL Above high normal [facility] (St [Mass/volume] by Juan C's Electrophoresis in Medical, Urine collected PC) for unspecified duration M-Kevyn 3.2 g/dL Above high normal [facility] ([facility], [facility]) Globulin, Total 5.1 g/dL Above high normal [facility] ([facility], [facility]) A/G Ratio 0.8 Normal (applies [facility] (St to non-numeric Juan C's results) Medical, PC) Please note: Normal (applies [facility] (St to non-numeric Juan C's results) Medical, PC) PDF . Normal (applies [facility] (St to non-numeric Juan C's results) Medical, PC) ID Date Data Source [id number] 03/22/2020 12:00:00 AM EDT [facility] ([facility], ) Name Value Range Interpretation Description Data Sup porting Code Source(s) Document(s ) Specific gravity 1.015 Normal (applies [facility] (St of Pericardial to non-numeric Juan C's fluid by results) Medical, Refractometry PC) pH of Lower 5.0 Normal (applies [facility] (St respiratory to non-numeric Juan C's specimen results) Medical, PC) Urine-Color Yellow Normal (applies [facility] (St to non-numeric Juan C's results) Medical, PC) Appearance of Clear Normal (applies [facility] (St Abdomen to non-numeric Juan C's results) Medical, PC) WBC Esterase Negative Normal (applies [facility] (St to non-numeric Juan C's results) Medical, PC) Glucose Negative Normal (applies [facility] (St [Mass/volume] in to non-numeric Juan C's Urine collected results) Medical, for unspecified PC) duration Protein Abnormal MED[facility] (St [Mass/volume] in (applies to Juan C's Lower non-numeric Medical, respiratory results) PC) specimen Ketones Negative Normal (applies [facility] (St [Presence] in to non-numeric Juan C's Blood by Tablet results) Medical, PC) Occult Blood Abnormal MEDGEN (St (applies to Juan C's non-numeric Medical, results) PC) Bilirubin Negative Normal (applies [facility] (St [Presence] in to non-numeric Juan C's Peritoneal fluid results) Medical, PC) Urobilinogen,Mel 0.2 mg/dL Normal (applies [facility] (St i-Qn to non-numeric Juan C's results) Medical, PC) Nitrite, Urine Negative Normal (applies [facility] (S t to non-numeric Juan C's results) Medical, PC) Microscopic See below: Normal (applies [facility] (St Examination to non-numeric Juan C's results) Medical, ) ID Date Data Source [id number] 03/22/2020 12:00:00 AM EDT [facility] ([facility], ) Name Value Range Interpretation Description Data Sup porting Code Source(s) Document(s ) WBC 0-5 Normal (applies [facility] (St to non-numeric Juan C's results) Medical, PC) RBC 3-10 Abnormal (applies [facility] (St to non-numeric Juan C's results) Medical, PC) Epithelial 0-10 Normal (applies [facility] (St Cells (non to non-numeric Juan C's renal) results) Medical, ) Crystal Type Calcium Normal (applies [facility] (St Oxalate to non-numeric Juan C's results) Medical, PC) Crystals Present Abnormal (applies [facility] (St [#/area] in to non-numeric Juan C's Body fluid by results) Medical, PC) Light microscopy Mucus Threads Present Normal (applies [facility] (St to non-numeric Juan C's results) Medical, ) Bacteria Few Normal (applies [facility] (St [Presence] in to non-numeric Juan C's Prostatic results) Medical, PC) fluid by Light microscopy ID Date Data Source [id number] 03/22/2020 12:00:00 AM EDT [facility] ([facility], ) Name Value Range Interpretation Description Data Sup porting Code Source(s) Document(s ) Glucose 88 mg/dL Normal (applies [facility] (St [Mass/volume] in to non-numeric Juan C's Urine collected for results) Medical, unspecified ) duration Urea nitrogen 61 mg/dL Above high MEDGEN (St [Mass/volume] in normal Juan C's Serum or Plasma Medical, PC) Creatinine 5.97 Above high MEDGEN (St [Interpretation] in mg/dL normal Juan C's Urine Medical, ) eGFR If NonAfricn 9 Below low normal MEDGE N (St Am mL/min/1 Ujan C's .73 Medical, PC) eGFR If Africn Am 10 Below low normal MEDGE N (St mL/min/1 Juan C's .73 Medical, PC) BUN/Creatinine 10 Normal (applies [facility]GEN (S t Ratio to non-numeric Juan C's results) Medical, ) Sodium 134 Normal (applies [facility] (St [Moles/volume] in mmol/L to non-numeric Juan C's Serum or Plasma results) Medical, ) Potassium 4.1 Normal (applies [facility] (St [Mass/volume] in mmol/L to non-numeric Juan C's Blood results) Medical, ) Carbon dioxide, 20 Normal (applies [facility] ( St total mmol/L to non-numeric Juan C's [Moles/volume] in results) Medical, Serum or Plasma PC) Chloride 98 Normal (applies [facility] (St [Moles/volume] in mmol/L to non-numeric Juan C's Serum or Plasma results) Medical, ) Calcium 12.0 Above high MEDGEN (St [Moles/volume] in mg/dL normal Juan C's Urine collected for Medical, unspecified PC) duration Protein 9.1 g/dL Above high [facility]GEN (St [Mass/volume] in normal Juan C's Serum or Plasma Medical, ) Microalbumin 3.9 g/dL Normal (applies [facility] (St [Mass/time] in to non-numeric Juan C's Urine collected for results) Medical, unspecified PC) duration A/G Ratio 0.8 Below low normal [facility] ([facility], ) Globulin, Total 5.2 g/dL Above high MEDGEN (St normal [facility], ) Bilirubin.total 0.4 Normal (applies [facility] ( St [Mass/volume] in mg/dL to non-numeric Juan C's Serum or Plasma results) Medical, ) Alkaline 63 IU/L Normal (applies [facility] (St phosphatase to non-numeric Juan C's [Enzymatic results) Medical, activity/volume] in PC) Serum, Plasma or Blood Aspartate 43 IU/L Above high [facility]GEN (St aminotransferase normal Juan C's [Enzymatic Medical, activity/volume] in PC) Serum or Plasma Alanine 43 IU/L Normal (applies [facility] (St aminotransferase to non-numeric Juan C's [Enzymatic results) Medical, activity/volume] in PC) Serum or Plasma ID Date Data Source [id number] 03/22/2020 12:00:00 AM EDT [facility] ([facility], ) Name Value Range Interpretation Description Data Sup porting Code Source(s) Document(s ) Leukocytes 11.7 Above high normal [facility] (St [#/volume] in x10E3/uL Juan C's Blood by Medical, PC) Automated count Erythrocytes 2.47 Below lower panic MEDGEN (S t [#/volume] in x10E6/uL limits Juan C's Blood by [facility]) Automated count Hemoglobin 8.2 g/dL Below low normal [facility] (St [Mass/volume] in Juan C's Blood [facility], ) Hematocrit 23.3 % Below low normal MEDGEN (St [Volume Juan C's Fraction] of [facility], ) Blood by Automated count MCV 94 fL Normal (applies MEDGEN (St to non-numeric Juan C's results) [facility]) MCH 33.2 pg Above high normal [facility] ([facility], ) MCHC 35.2 Normal (applies MEDGEN (St g/dL to non-numeric Juan C's results) [facility]) RDW 19.0 % Above high normal [facility] ([facility], ) Platelets 198 Normal (applies MEDGEN (St [#/area] in x10E3/uL to non-numeric Juan C's Blood by results) [facility]) Microscopy high power field Neutrophils [#] 54 % Normal (applies MEDGEN ( St in Body fluid by to non-numeric Juan C's Manual count results) [facility]) Lymphs 13 % Normal (applies [facility]GEN (St to non-numeric Juan C's results) [facility]) Monocytes 16 % Normal (applies [facility]GEN (St [#/volume] in to non-numeric Juan C's Cord blood results) [facility]) Eos 11 % Normal (applies [facility]GEN (St to non-numeric Juan C's results) [facility]) Basos 1 % Normal (applies [facility]GEN (St to non-numeric Juan C's results) [facility]) Neutrophils 6.4 Normal (applies [facility]GEN (St (Absolute) x10E3/uL to non-numeric Juan C's results) [facility]) Lymphs 1.5 Normal (applies [facility] (St (Absolute) x10E3/uL to non-numeric Juan C's results) [facility]) Monocytes(Absolu 1.9 Above high normal MEDGE N (St te) x10E3/uL Juan C's [facility]) Eos (Absolute) 1.3 Above high normal [facility] (St x10E3/uL [facility]) Baso (Absolute) 0.1 Normal (applies MEDGEN ( St x10E3/uL to non-numeric Juan C's results) [facility], ) Immature 5 % Normal (applies MEDGEN (St Granulocytes to non-numeric Juan C's results) [facility], ) Immature Grans 0.6 Above high normal MEDGEN (St (Abs) x10E3/uL [facility], ) NRBC 4 % Above high normal [facility] ([facility], ) ID Date Data Source [id number] 03/22/2020 12:00:00 AM EDT [facility] ([facility], ) Name Value Range Interpretation Code Description Data Lisa rce(s) Supporting Document(s ) ID Date Data Source [id number] 03/22/2020 12:00:00 AM EDT [facility] ([facility], ) Name Value Range Interpretation Code Description Data Supporting Source(s) Document(s ) PTH, Intact 10 pg/mL Below low normal [facility] ([facility], ) ID Date Data Source [id number] 03/22/2020 12:00:00 AM EDT [facility] ([facility], ) Name Value Range Interpretation Code Description Data Supporting Source(s) Document(s ) Ferritin, 349 ng/mL Normal (applies to MEDGEN (St Serum non-numeric Juan C's results) [facility], ) ID Date Data Source [id number] 03/22/2020 12:00:00 AM EDT [facility] ([facility], ) Name Value Range Interpretation Description Data Sup porting Code Source(s) Document(s ) Deprecated 5.4 mg/dL Above high normal MED[facility] (St Phosphorus Juan C's [Mass/time] in [facility], ) 24 hour Urine ID Date Data Source [id number] 03/22/2020 12:00:00 AM EDT [facility] ([facility], ) Name Value Range Interpretation Code Description Data Lisa rce(s) Supporting Document(s ) RAGINI Normal (applies to [facility] (St Interpreta non-numeric results) Juan C's M edical, tion:U PC) ID Date Data Source [id number] 03/22/2020 12:00:00 AM EDT [facility] ([facility], ) Name Value Range Interpretation Description Data Sup porting Code Source(s) Document(s ) Vitamin D, 30.6 Normal (applies to [facility] (St 25-Hydroxy ng/mL non-numeric Juan C's results) [facility]) ID Date Data Source [id number] 03/22/2020 12:00:00 AM EDT [facility] ([facility], ) Name Value Range Interpretation Description Data Sup porting Code Source(s) Document(s ) Free [place] 141.85 Above high normal MEDGEN (St Lt mg/L Juan C's Chains,Ur [facility], ) Free Lambda 110.44 Above high normal MED[facility] (St Lt mg/L Juan C's Chains,Ur [facility], ) [place] 1.28 Normal (applies to MEDGEN (S t a Ratio,U non-numeric Juan C's results) [facility]) ID Date Data Source [id number] 03/22/2020 12:00:00 AM EDT [facility] ([facility], ) Name Value Range Interpretation Description Data Sup porting Code Source(s) Document(s ) Free [place] 41.1 mg/L Above high normal MEDGEN (St Lt Chains,S [facility], ) Free Lambda 176.0 mg/L Above high normal MEDGEN (S t Lt Chains,S [facility], ) [place] 0.23 Below low normal MEDGEN (St a Ratio,S [facility], ) ID Date Data Source [id number] 03/22/2020 12:00:00 AM EDT [facility] ([facility], ) Name Value Range Interpretation Code Description Data Supporting Source(s) Document(s ) Creatinine 94.7 mg/dL Normal (applies to MEDGEN (S t , Urine non-numeric Juan C's results) [facility]) Protein/Cr 1072 mg/g Above high normal MEDGEN (St eat Ratio creat [facility], ) ID Date Data Source [id number] 03/22/2020 12:00:00 AM EDT [facility] ([facility], ) Name Value Range Interpretation Description Data Sup porting Code Source(s) Document(s ) Immunofixation Normal (applies MEDGEN (S t Result, Serum to non-numeric Juan C's results) [facility]) Immunoglobulin G, 3867 Above high normal MEDG EN (St Qn, Serum mg/dL [facility]) Immunoglobulin A, 17 mg/dL Below low normal MEDGE N (St Qn, Serum Juan C's [facility], ) Immunoglobulin M, 8 mg/dL Below low normal MEDGE N (St Qn, Serum Juan C's [facility], ) ID Date Data Source [id number] 03/22/2020 12:00:00 AM EDT MED[facility] (St [facility], ) Name Value Range Interpretation Description Data Sup porting Code Source(s) Document(s ) Iron 248 ug/dL Below low normal MEDGEN (St Bind.Cap.(TIBC Juan C's ) [facility], ) UIBC 172 ug/dL Normal (applies to MEDGEN (St non-numeric Juan C's results) [facility], ) Iron 76 ug/dL Normal (applies to MEDGEN (St [Mass/volume] non-numeric Juan C's in Serum or results) [facility], ) Plasma Iron 31 % Normal (applies to MEDGEN (St saturation non-numeric Juan C's [Mass results) [facility], ) Fraction] in Serum or Plasma ID Date Data Source [id number] 03/22/2020 12:00:00 AM EDT MEDGEN (St [facility], ) Name Value Range Interpretation Description Data Sup porting Code Source(s) Document(s ) Protein,Tot 101.5 Normal (applies to MEDGEN (S t al,Urine mg/dL non-numeric Juan C's results) [facility], ) Albumin, U 36.2 % Normal (applies to MEDGEN (St non-numeric Juan C's results) [facility], ) Alpha-1-Nadine 5.7 % Normal (applies to MEDGEN (S t bulin, U non-numeric Juan C's results) [facility], ) Alpha-2-Nadine 12.8 % Normal (applies to MEDGEN (S t bulin, U non-numeric Juan C's results) [facility], ) Beta 29.7 % Normal (applies to MEDGEN (St Globulin, U non-numeric Juan C's results) [facility], ) Gamma 15.6 % Normal (applies to MEDGEN (St Globulin, U non-numeric Juan C's results) [facility], ) Please Normal (applies to MEDGEN (St note: non-numeric Juan C's results) Medical, ) M-Kevyn, % Comment: Normal (applies to MEDGEN (St non-numeric Juan C's results) Medical, PC) PDF . Normal (applies to [facility]GEN (St non-numeric Juan C's results) Medical, PC) ID Date Data Source [id number] 03/22/2020 12:00:00 AM EDT [facility] ([facility], ) Name Value Range Interpretation Description Data Sup porting Code Source(s) Document(s ) Microalbumin 4.0 g/dL Normal (applies MEDGEN (St [Mass/time] in to non-numeric Jua Nc's Urine collected results) Medical, for unspecified PC) duration Bjxqh-1-Walakmdx 0.2 g/dL Normal (applies MEDGEN (St to non-numeric Juan C's results) Medical, PC) Llpop-8-Hrjkwkie 0.8 g/dL Normal (applies MEDGEN (St to non-numeric Juan C's results) Medical, PC) Beta globulin 0.7 g/dL Normal (applies MEDGEN (St [Mass/volume] in to non-numeric Juan C's Urine by results) Medical, Electrophoresis PC) Gamma globulin 3.5 g/dL Above high normal MEDGEN (St [Mass/volume] by Juan C's Electrophoresis in Medical, Urine collected PC) for unspecified duration M-Kevyn 3.2 g/dL Above high normal [facility] ([facility], ) Globulin, Total 5.1 g/dL Above high normal [facility] ([facility], ) A/G Ratio 0.8 Normal (applies MEDGEN (St to non-numeric Juan C's results) Medical, PC) Please note: Normal (applies MEDGEN (St to non-numeric Juan C's results) Medical, PC) PDF . Normal (applies MEDGEN (St to non-numeric Juan C's results) Medical, PC) ID Date Data Source [id number] 03/22/2020 12:00:00 AM EDT [facility] ([facility], ) Name Value Range Interpretation Description Data Sup porting Code Source(s) Document(s ) Specific gravity 1.015 Normal (applies MEDGEN (St of Pericardial to non-numeric Juan C's fluid by results) Medical, Refractometry PC) pH of Lower 5.0 Normal (applies MEDGEN (St respiratory to non-numeric Juan C's specimen results) Medical, PC) Urine-Color Yellow Normal (applies MEDGEN (St to non-numeric Juan C's results) Medical, PC) Appearance of Clear Normal (applies MEDGEN (St Abdomen to non-numeric Juan C's results) Medical, PC) Protein Abnormal MEDGEN (St [Mass/volume] in (applies to Juan C's Lower non-numeric Medical, respiratory results) ) specimen WBC Esterase Negative Normal (applies MEDGEN (St to non-numeric Juan C's results) Medical, PC) Glucose Negative Normal (applies MEDGEN (St [Mass/volume] in to non-numeric Juan C's Urine collected results) Medical, for unspecified PC) duration Ketones Negative Normal (applies MEDGEN (St [Presence] in to non-numeric Juan C's Blood by Tablet results) Medical, ) Occult Blood Abnormal MEDGEN (St (applies to Juan C's non-numeric Medical, results) PC) Bilirubin Negative Normal (applies MEDGEN (St [Presence] in to non-numeric Juan C's Peritoneal fluid results) Medical, ) Urobilinogen,Mel 0.2 mg/dL Normal (applies MEDGEN (St i-Qn to non-numeric Juan C's results) Medical, ) Nitrite, Urine Negative Normal (applies MEDGEN (S t to non-numeric Juan C's results) Medical, ) Microscopic See below: Normal (applies MEDGEN (St Examination to non-numeric Juan C's results) Medical, ) ID Date Data Source [id number] 03/22/2020 12:00:00 AM EDT [facility] ([facility]) Name Value Range Interpretation Description Data Sup porting Code Source(s) Document(s ) WBC 0-5 Normal (applies MEDGEN (St to non-numeric Juan C's results) Medical, ) RBC 3-10 Abnormal (applies MEDGEN (St to non-numeric Juan C's results) Medical, PC) Epithelial 0-10 Normal (applies MEDGEN (St Cells (non to non-numeric Juan C's renal) results) Medical, ) Crystals Present Abnormal (applies MEDGEN (St [#/area] in to non-numeric Juan C's Body fluid by results) Medical, ) Light microscopy Crystal Type Calcium Normal (applies MEDGEN (St Oxalate to non-numeric Juan C's results) Medical, ) Bacteria Few Normal (applies MEDGEN (St [Presence] in to non-numeric Juan C's Prostatic results) Medical, ) fluid by Light microscopy Mucus Threads Present Normal (applies MEDGEN (St to non-numeric Juan C's results) Medical, ) ID Date Data Source [id number] 03/22/2020 12:00:00 AM EDT [facility] ([facility], ) Name Value Range Interpretation Description Data Sup porting Code Source(s) Document(s ) Glucose 88 mg/dL Normal (applies MEDGEN (St [Mass/volume] in to non-numeric Juan [facility]'s Urine collected for results) Medical, unspecified PC) duration Urea nitrogen 61 mg/dL Above high MEDGEN (St [Mass/volume] in normal Juan [facility]'s Serum or Plasma Medical, ) Creatinine 5.97 Above high MEDGEN (St [Interpretation] in mg/dL normal [facility] Urine Medical, ) eGFR If NonAfricn 9 Below low normal MEDGE N (St Am mL/min/1 [facility]'s .73 [facility], ) BUN/Creatinine 10 Normal (applies [facility]GEN (S t Ratio to non-numeric Juan [facility]'s results) Medical, ) eGFR If Africn Am 10 Below low normal MEDGE N (St mL/min/1 [facility]'s 73 Medical, ) Sodium 134 Normal (applies [facility] (St [Moles/volume] in mmol/L to non-numeric [facility] Serum or Plasma results) Medical, ) Potassium 4.1 Normal (applies [facility] (St [Mass/volume] in mmol/L to non-numeric [facility] Blood results) Medical, ) Chloride 98 Normal (applies [facility] (St [Moles/volume] in mmol/L to non-numeric [facility] Serum or Plasma results) Medical, ) Carbon dioxide, 20 Normal (applies [facility]GEN ( St total mmol/L to non-numeric Juan [facility]'s [Moles/volume] in results) Medical, Serum or Plasma PC) Calcium 12.0 Above high [facility]GEN (St [Moles/volume] in mg/dL normal [facility] Urine collected for Medical, unspecified PC) duration Protein 9.1 g/dL Above high [facility]GEN (St [Mass/volume] in normal [facility]'s Serum or Plasma Medical, ) Microalbumin 3.9 g/dL Normal (applies [facility] (St [Mass/time] in to non-numeric [facility] Urine collected for results) Medical, unspecified PC) duration Globulin, Total 5.2 g/dL Above high MEDGEN (St normal [facility], ) A/G Ratio 0.8 Below low normal [facility] ([facility], ) Bilirubin.total 0.4 Normal (applies [facility]GEN ( St [Mass/volume] in mg/dL to non-numeric Juan [facility]'s Serum or Plasma results) [facility], ) Alkaline 63 IU/L Normal (applies [facility] (St phosphatase to non-numeric Juan C's [Enzymatic results) [facility], activity/volume] in ) Serum, Plasma or Blood Aspartate 43 IU/L Above high [facility]GEN (St aminotransferase normal Juan [facility]'s [Enzymatic Medical, activity/volume] in ) Serum or Plasma Alanine 43 IU/L Normal (applies [facility] (St aminotransferase to non-numeric Juan [facility]'s [Enzymatic results) [facility], activity/volume] in ) Serum or Plasma ID Date Data Source [id number] 03/22/2020 12:00:00 AM EDT [facility] ([facility], ) Name Value Range Interpretation Description Data Sup porting Code Source(s) Document(s ) Leukocytes 11.7 Above high normal [facility] (St [#/volume] in x10E3/uL [facility] Blood by [facility]) Automated count Erythrocytes 2.47 Below lower panic MEDGEN (S t [#/volume] in x10E6/uL limits [facility] Blood by [facility]) Automated count Hemoglobin 8.2 g/dL Below low normal [facility] (St [Mass/volume] in Juan C's Blood [facility], ) Hematocrit 23.3 % Below low normal [facility] (St [Volume Juan C's Fraction] of [facility], ) Blood by Automated count MCV 94 fL Normal (applies [facility] (St to non-numeric Juan C's results) [facility]) MCH 33.2 pg Above high normal [facility] ([facility], ) MCHC 35.2 Normal (applies [facility] (St g/dL to non-numeric Juan C's results) [facility]) RDW 19.0 % Above high normal [facility] ([facility], ) Platelets 198 Normal (applies [facility] (St [#/area] in x10E3/uL to non-numeric [facility] Blood by results) [facility]) Microscopy high power field Neutrophils [#] 54 % Normal (applies [facility] ( St in Body fluid by to non-numeric Juan C's Manual count results) [facility], ) Lymphs 13 % Normal (applies [facility] (St to non-numeric Juan C's results) [facility], ) Monocytes 16 % Normal (applies [facility] (St [#/volume] in to non-numeric Juan C's Cord blood results) [facility], ) Eos 11 % Normal (applies [facility] (St to non-numeric [facility] C's results) [facility], ) Neutrophils 6.4 Normal (applies [facility] (St (Absolute) x10E3/uL to non-numeric Juan C's results) [facility], ) Basos 1 % Normal (applies [facility] (St to non-numeric Juan C's results) [facility], ) Lymphs 1.5 Normal (applies [facility] (St (Absolute) x10E3/uL to non-numeric Juan [facility]'s results) [facility], ) Monocytes(Absolu 1.9 Above high normal MEDGE N (St te) x10E3/uL Juan C's [facility], ) Eos (Absolute) 1.3 Above high normal [facility] (St x10E3/uL Juan C's [facility], ) Baso (Absolute) 0.1 Normal (applies [facility] ( St x10E3/uL to non-numeric Juan C's results) [facility], ) Immature 5 % Normal (applies [facility] (St Granulocytes to non-numeric Juan C's results) [facility], ) Immature Grans 0.6 Above high normal [facility] (St (Abs) x10E3/uL Juan C's [facility], ) NRBC 4 % Above high normal [facility] ([facility], ) ID Date Data Source [id number] 03/22/2020 12:00:00 AM EDT [facility] ([facility], ) Name Value Range Interpretation Code Description Data Lisa rce(s) Supporting Document(s ) ID Date Data Source [id number] 03/22/2020 12:00:00 AM EDT [facility] ([facility], ) Name Value Range Interpretation Code Description Data Supporting Source(s) Document(s ) PTH, Intact 10 pg/mL Below low normal [facility] ([facility], ) ID Date Data Source [id number] 03/22/2020 12:00:00 AM EDT [facility] ([facility], ) Name Value Range Interpretation Code Description Data Supporting Source(s) Document(s ) Ferritin, 349 ng/mL Normal (applies to [facility]GEN (St Serum non-numeric Juan C's results) [facility], ) ID Date Data Source [id number] 03/22/2020 12:00:00 AM EDT [facility] ([facility], ) Name Value Range Interpretation Description Data Sup porting Code Source(s) Document(s ) Deprecated 5.4 mg/dL Above high normal [facility] (St Phosphorus Juan C's [Mass/time] in [facility], ) 24 hour Urine ID Date Data Source [id number] 03/22/2020 12:00:00 AM EDT [facility] ([facility], ) Name Value Range Interpretation Code Description Data Lisa rce(s) Supporting Document(s ) ID Date Data Source [id number] 03/22/2020 12:00:00 AM EDT [facility] ([facility], ) Name Value Range Interpretation Description Data Sup porting Code Source(s) Document(s ) Vitamin D, 30.6 Normal (applies to [facility] (St 25-Hydroxy ng/mL non-numeric Juan C's results) [facility], ) ID Date Data Source [id number] 03/22/2020 12:00:00 AM EDT [facility] ([facility], ) Name Value Range Interpretation Description Data Sup porting Code Source(s) Document(s ) Free [place] 110.44 Above high normal MEDGEN (St Lt mg/L Juan [facility]'s Chains,Ur [facility], ) Free [place] 141.85 Above high normal [facility] (St Lt mg/L [facility] Chains,Ur [facility], ) [place] 1.28 Normal (applies to MEDGEN (S t a Ratio,U non-numeric Juan C's results) [facility], ) ID Date Data Source [id number] 03/22/2020 12:00:00 AM EDT [facility] ([facility], ) Name Value Range Interpretation Description Data Sup porting Code Source(s) Document(s ) Free [place] 41.1 mg/L Above high normal MED[facility] (St Lt Chains,S [facility], ) Free Lambda 176.0 mg/L Above high normal [facility] (S t Lt Chains,S [facility], ) [place] 0.23 Below low normal MEDGEN (St a Ratio,S [facility], ) ID Date Data Source [id number] 03/22/2020 12:00:00 AM EDT [facility] ([facility], ) Name Value Range Interpretation Code Description Data Supporting Source(s) Document(s ) Creatinine 94.7 mg/dL Normal (applies to MEDGEN (S t , Urine non-numeric Juan C's results) [facility], ) Protein/Cr 1072 mg/g Above high normal MEDGEN (St eat Ratio creat [facility], ) ID Date Data Source [id number] 03/22/2020 12:00:00 AM EDT [facility] ([facility], ) Name Value Range Interpretation Description Data Sup porting Code Source(s) Document(s ) Immunoglobulin G, 3867 Above high normal MEDG EN (St Qn, Serum mg/dL [facility]) Immunoglobulin M, 8 mg/dL Below low normal MEDGE N (St Qn, Serum [facility]) Immunoglobulin A, 17 mg/dL Below low normal MEDGE N (St Qn, Serum [facility]) ID Date Data Source [id number] 03/22/2020 12:00:00 AM EDT [facility] ([facility], ) Name Value Range Interpretation Description Data Sup porting Code Source(s) Document(s ) Iron 248 ug/dL Below low normal MEDGEN (St Bind.Cap.(TIBC Juan C's ) [facility]) UIBC 172 ug/dL Normal (applies to [facility]GEN (St non-numeric Juan C's results) [facility], ) Iron 76 ug/dL Normal (applies to [facility] (St [Mass/volume] non-numeric Juan C's in Serum or results) [facility], ) Plasma Iron 31 % Normal (applies to [facility]GEN (St saturation non-numeric Juan C's [Mass results) [facility]) Fraction] in Serum or Plasma ID Date Data Source [id number] 03/22/2020 12:00:00 AM EDT [facility] ([facility], ) Name Value Range Interpretation Code Description Data Supporting Source(s) Document(s ) Protein,To 101.5 Normal (applies to [facility]GEN (St ruth,Urine mg/dL non-numeric Juan C's results) [facility], ) Albumin, U 36.2 % Normal (applies to [facility] (St non-numeric [facility] C's results) Medical, PC) Alpha-1-Gl 5.7 % Normal (applies to [facility] (St obulin, U non-numeric [facility]'s results) Medical, PC) Beta 29.7 % Normal (applies to [facility] (St Globulin, non-numeric Juan C's U results) Medical, PC) Alpha-2-Gl 12.8 % Normal (applies to [facility]GEN (St obulin, U non-numeric [facility]'s results) Medical, PC) Gamma 15.6 % Normal (applies to [facility] (St Globulin, non-numeric Juan C's U results) Medical, PC) M-Kevyn, % Comment: Normal (applies to [facility]GEN (St non-numeric Juan C's results) Medical, PC) PDF . Normal (applies to [facility]GEN (St non-numeric [facility]'s results) Medical, ) ID Date Data Source [id number] 03/22/2020 12:00:00 AM EDT [facility] ([facility], ) Name Value Range Interpretation Description Data Sup porting Code Source(s) Document(s ) Microalbumin 4.0 g/dL Normal (applies [facility] (St [Mass/time] in to non-numeric [facility] Urine collected results) Medical, for unspecified PC) duration Bcqoz-8-Nftxorcc 0.2 g/dL Normal (applies [facility] (St to non-numeric [facility] C's results) Medical, PC) Beta globulin 0.7 g/dL Normal (applies [facility] (St [Mass/volume] in to non-numeric [facility] Urine by results) Medical, Electrophoresis PC) Hzfwq-8-Lrttnlaj 0.8 g/dL Normal (applies [facility] (St to non-numeric Juan C's results) Medical, PC) Gamma globulin 3.5 g/dL Above high normal [facility]GEN (St [Mass/volume] by Juan C's Electrophoresis in Medical, Urine collected PC) for unspecified duration M-Kevyn 3.2 g/dL Above high normal [facility] ([facility], ) Globulin, Total 5.1 g/dL Above high normal [facility] ([facility], ) A/G Ratio 0.8 Normal (applies [facility] (St to non-numeric Juan C's results) Medical, ) PDF . Normal (applies [facility]GEN (St to non-numeric Juan C's results) Medical, ) ID Date Data Source [id number] 03/22/2020 12:00:00 AM EDT [facility] ([facility], [facility]) Name Value Range Interpretation Description Data Sup porting Code Source(s) Document(s ) Specific gravity 1.015 Normal (applies [facility] (St of Pericardial to non-numeric Juan C's fluid by results) Medical, Refractometry PC) Urine-Color Yellow Normal (applies [facility] (St to non-numeric Juan C's results) Medical, PC) pH of Lower 5.0 Normal (applies [facility]GEN (St respiratory to non-numeric Juan C's specimen results) Medical, PC) WBC Esterase Negative Normal (applies [facility]GEN (St to non-numeric Juan C's results) Medical, PC) Appearance of Clear Normal (applies [facility]GEN (St Abdomen to non-numeric Juan C's results) Medical, PC) Protein Abnormal MEDGEN (St [Mass/volume] in (applies to Juan C's Lower non-numeric Medical, respiratory results) PC) specimen Glucose Negative Normal (applies [facility] (St [Mass/volume] in to non-numeric [facility] Urine collected results) Medical, for unspecified PC) duration Ketones Negative Normal (applies [facility] (St [Presence] in to non-numeric Juan C's Blood by Tablet results) Medical, PC) Occult Blood Abnormal MEDGEN (St (applies to Juan C's non-numeric Medical, results) PC) Bilirubin Negative Normal (applies [facility] (St [Presence] in to non-numeric Juan C's Peritoneal fluid results) Medical, PC) Urobilinogen,Mel 0.2 mg/dL Normal (applies [facility] (St i-Qn to non-numeric Juan C's results) Medical, PC) Nitrite, Urine Negative Normal (applies [facility]GEN (S t to non-numeric Juan C's results) Medical, PC) Microscopic See below: Normal (applies [facility]GEN (St Examination to non-numeric Juan C's results) Medical, PC) ID Date Data Source [id number] 03/22/2020 12:00:00 AM EDT [facility] ([facility], [facility]) Name Value Range Interpretation Description Data Sup porting Code Source(s) Document(s ) WBC 0-5 Normal (applies [facility] (St to non-numeric Juan C's results) Medical, PC) RBC 3-10 Abnormal (applies [facility] (St to non-numeric Juan C's results) Medical, PC) Epithelial 0-10 Normal (applies [facility] (St Cells (non to non-numeric Juan C's renal) results) Medical, PC) Crystals Present Abnormal (applies [facility] (St [#/area] in to non-numeric Juan C's Body fluid by results) Medical, PC) Light microscopy Crystal Type Calcium Normal (applies [facility] (St Oxalate to non-numeric Juan C's results) Medical, PC) Mucus Threads Present Normal (applies [facility] (St to non-numeric Juan C's results) Medical, PC) Bacteria Few Normal (applies [facility]GEN (St [Presence] in to non-numeric Juan C's Prostatic results) Medical, ) fluid by Light microscopy ID Date Data Source [id number] 03/22/2020 12:00:00 AM EDT [facility] ([facility], ) Name Value Range Interpretation Description Data Sup porting Code Source(s) Document(s ) Glucose 88 mg/dL Normal (applies [facility] (St [Mass/volume] in to non-numeric [facility] Urine collected for results) Medical, unspecified PC) duration Urea nitrogen 61 mg/dL Above high [facility] (St [Mass/volume] in normal Juan C's Serum or Plasma Medical, ) Creatinine 5.97 Above high [facility]GEN (St [Interpretation] in mg/dL normal [facility] Urine Medical, PC) eGFR If Africn Am 10 Below low normal MEDGE N (St mL/min/1 Juan C's .73 Medical, PC) eGFR If NonAfricn 9 Below low normal MEDGE N (St Am mL/min/1 [facility]'s .73 Medical, ) BUN/Creatinine 10 Normal (applies MEDGEN (S t Ratio to non-numeric Juan C's results) Medical, PC) Sodium 134 Normal (applies [facility]GEN (St [Moles/volume] in mmol/L to non-numeric Juan C's Serum or Plasma results) Medical, PC) Potassium 4.1 Normal (applies [facility] (St [Mass/volume] in mmol/L to non-numeric Juan C's Blood results) Medical, PC) Chloride 98 Normal (applies [facility] (St [Moles/volume] in mmol/L to non-numeric Juan C's Serum or Plasma results) Medical, PC) Carbon dioxide, 20 Normal (applies [facility]GEN ( St total mmol/L to non-numeric Juan C's [Moles/volume] in results) Medical, Serum or Plasma PC) Calcium 12.0 Above high [facility]GEN (St [Moles/volume] in mg/dL normal Juan C's Urine collected for Medical, unspecified PC) duration Microalbumin 3.9 g/dL Normal (applies [facility] (St [Mass/time] in to non-numeric [facility]'s Urine collected for results) Medical, unspecified PC) duration Protein 9.1 g/dL Above high [facility]GEN (St [Mass/volume] in normal Juan C's Serum or Plasma [facility], ) Globulin, Total 5.2 g/dL Above high [facility] (St normal [facility], ) A/G Ratio 0.8 Below low normal [facility] ([facility], ) Bilirubin.total 0.4 Normal (applies MEDGEN ( St [Mass/volume] in mg/dL to non-numeric Juan C's Serum or Plasma results) Medical, ) Aspartate 43 IU/L Above high MEDGEN (St aminotransferase normal Juan C's [Enzymatic Medical, activity/volume] in PC) Serum or Plasma Alkaline 63 IU/L Normal (applies [facility]GEN (St phosphatase to non-numeric Juan C's [Enzymatic results) Medical, activity/volume] in PC) Serum, Plasma or Blood Alanine 43 IU/L Normal (applies [facility]GEN (St aminotransferase to non-numeric Juan C's [Enzymatic results) Medical, activity/volume] in PC) Serum or Plasma ID Date Data Source [id number] 03/22/2020 12:00:00 AM EDT [facility] ([facility], ) Name Value Range Interpretation Description Data Sup porting Code Source(s) Document(s ) Leukocytes 11.7 Above high normal [facility]GEN (St [#/volume] in x10E3/uL Juan C's Blood by [facility], ) Automated count Erythrocytes 2.47 Below lower panic MEDGEN (S t [#/volume] in x10E6/uL limits Juan C's Blood by [facility], ) Automated count Hematocrit 23.3 % Below low normal [facility]GEN (St [Volume Juan C's Fraction] of [facility], ) Blood by Automated count Hemoglobin 8.2 g/dL Below low normal [facility]GEN (St [Mass/volume] in Juan C's Blood [facility], ) MCV 94 fL Normal (applies MEDGEN (St to non-numeric Juan C's results) [facility], ) MCH 33.2 pg Above high normal [facility] ([facility], ) MCHC 35.2 Normal (applies MEDGEN (St g/dL to non-numeric Juan C's results) [facility]) Platelets 198 Normal (applies MEDGEN (St [#/area] in x10E3/uL to non-numeric Juan C's Blood by results) [facility]) Microscopy high power field RDW 19.0 % Above high normal [facility] ([facility], ) Neutrophils [#] 54 % Normal (applies MEDGEN ( St in Body fluid by to non-numeric Juan C's Manual count results) [facility]) Lymphs 13 % Normal (applies MEDGEN (St to non-numeric Juan C's results) [facility]) Monocytes 16 % Normal (applies MEDGEN (St [#/volume] in to non-numeric Juan C's Cord blood results) [facility]) Basos 1 % Normal (applies MEDGEN (St to non-numeric Juan C's results) [facility]) Eos 11 % Normal (applies [facility]GEN (St to non-numeric Juan C's results) [facility]) Neutrophils 6.4 Normal (applies MEDGEN (St (Absolute) x10E3/uL to non-numeric Juan C's results) [facility]) Lymphs 1.5 Normal (applies MEDGEN (St (Absolute) x10E3/uL to non-numeric Juan C's results) [facility]) Monocytes(Absolu 1.9 Above high normal MEDGE N (St te) x10E3/uL [facility]) Eos (Absolute) 1.3 Above high normal [facility] (St x10E3/uL [facility], ) Baso (Absolute) 0.1 Normal (applies MEDGEN ( St x10E3/uL to non-numeric Juan C's results) [facility]) Immature 5 % Normal (applies [facility]GEN (St Granulocytes to non-numeric Juan C's results) [facility]) NRBC 4 % Above high normal [facility] ([facility], ) Immature Grans 0.6 Above high normal [facility]GEN (St (Abs) x10E3/uL [facility]) ID Date Data Source [id number] 03/22/2020 12:00:00 AM EDT [facility] ([facility], ) Name Value Range Interpretation Description Data Sup porting Code Source(s) Document(s ) Dgjiq-5-Cpfnamsl 0.2 g/dL Normal (applies [facility]GEN (St to non-numeric Juan C's results) Medical, ) Microalbumin 4.0 g/dL Normal (applies [facility]GEN (St [Mass/time] in to non-numeric Juan C's Urine collected results) Medical, for unspecified PC) duration Lorir-0-Rbtiojsl 0.8 g/dL Normal (applies MEDGEN (St to non-numeric Juan C's results) Medical, ) Gamma globulin 3.5 g/dL Above high normal [facility]GEN (St [Mass/volume] by Juan C's Electrophoresis in Medical, Urine collected PC) for unspecified duration Beta globulin 0.7 g/dL Normal (applies [facility]GEN (St [Mass/volume] in to non-numeric Juan C's Urine by results) Medical, Electrophoresis ) M-Kevyn 3.2 g/dL Above high normal [facility] ([facility], ) Globulin, Total 5.1 g/dL Above high normal [facility] ([facility], ) A/G Ratio 0.8 Normal (applies MEDGEN (St to non-numeric Juan C's results) Medical, ) PDF . Normal (applies MEDGEN (St to non-numeric Juan C's results) Medical, ) ID Date Data Source [id number] 03/22/2020 12:00:00 AM EDT [facility] ([facility], ) Name Value Range Interpretation Description Data Sup porting Code Source(s) Document(s ) Specific gravity 1.015 Normal (applies MEDGEN (St of Pericardial to non-numeric Juan C's fluid by results) Medical, Refractometry ) pH of Lower 5.0 Normal (applies MEDGEN (St respiratory to non-numeric Juan C's specimen results) Medical, ) Urine-Color Yellow Normal (applies MEDGEN (St to non-numeric Juan C's results) Medical, PC) Appearance of Clear Normal (applies MEDGEN (St Abdomen to non-numeric Juan C's results) Medical, ) Protein Abnormal MEDGEN (St [Mass/volume] in (applies to Juan C's Lower non-numeric Medical, respiratory results) ) specimen WBC Esterase Negative Normal (applies MEDGEN (St to non-numeric Juan C's results) Medical, ) Glucose Negative Normal (applies MEDGEN (St [Mass/volume] in to non-numeric Juan C's Urine collected results) Medical, for unspecified PC) duration Ketones Negative Normal (applies MEDGEN (St [Presence] in to non-numeric Juan C's Blood by Tablet results) Medical, ) Occult Blood Abnormal MEDGEN (St (applies to Juan C's non-numeric Medical, results) ) Bilirubin Negative Normal (applies MEDGEN (St [Presence] in to non-numeric Juan C's Peritoneal fluid results) Medical, ) Urobilinogen,Mel 0.2 mg/dL Normal (applies MEDGEN (St i-Qn to non-numeric Juan C's results) Medical, ) Nitrite, Urine Negative Normal (applies MEDGEN (S t to non-numeric Juan C's results) Medical, ) Microscopic See below: Normal (applies MEDGEN (St Examination to non-numeric Juan C's results) Medical, ) ID Date Data Source [id number] 03/22/2020 12:00:00 AM EDT [facility] ([facility], ) Name Value Range Interpretation Description Data Sup porting Code Source(s) Document(s ) WBC 0-5 Normal (applies MEDGEN (St to non-numeric Juan C's results) Medical, ) RBC 3-10 Abnormal (applies MEDGEN (St to non-numeric Juan C's results) Medical, ) Epithelial 0-10 Normal (applies MEDGEN (St Cells (non to non-numeric Juan C's renal) results) Medical, ) Crystals Present Abnormal (applies MEDGEN (St [#/area] in to non-numeric Juan C's Body fluid by results) Medical, ) Light microscopy Crystal Type Calcium Normal (applies MEDGEN (St Oxalate to non-numeric Juan C's results) Medical, ) Bacteria Few Normal (applies MEDGEN (St [Presence] in to non-numeric Juan C's Prostatic results) Medical, ) fluid by Light microscopy Mucus Threads Present Normal (applies MEDGEN (St to non-numeric Juan C's results) Medical, ) ID Date Data Source [id number] 03/22/2020 12:00:00 AM EDT [facility] ([facility], ) Name Value Range Interpretation Description Data Sup porting Code Source(s) Document(s ) Glucose 88 mg/dL Normal (applies [facility] (St [Mass/volume] in to non-numeric [facility] Urine collected for results) Medical, unspecified PC) duration Creatinine 5.97 Above high MEDGEN (St [Interpretation] in mg/dL normal [facility] Urine [facility], ) Urea nitrogen 61 mg/dL Above high MEDGEN (St [Mass/volume] in normal [facility]'s Serum or Plasma [facility], ) eGFR If NonAfricn 9 Below low normal MEDGE N (St Am mL/min/1 [facility]'s [address], ) eGFR If Africn Am 10 Below low normal MEDGE N (St mL/min/1 [facility]'s .73 [facility], ) BUN/Creatinine 10 Normal (applies [facility]GEN (S t Ratio to non-numeric [facility]'s results) Medical, ) Sodium 134 Normal (applies [facility] (St [Moles/volume] in mmol/L to non-numeric [facility] Serum or Plasma results) Medical, ) Potassium 4.1 Normal (applies [facility] (St [Mass/volume] in mmol/L to non-numeric [facility] Blood results) [facility], ) Chloride 98 Normal (applies [facility] (St [Moles/volume] in mmol/L to non-numeric [facility] Serum or Plasma results) [facility], ) Carbon dioxide, 20 Normal (applies [facility]GEN ( St total mmol/L to non-numeric [facility]'s [Moles/volume] in results) Medical, Serum or Plasma PC) Calcium 12.0 Above high [facility] (St [Moles/volume] in mg/dL normal [facility] Urine collected for Medical, unspecified PC) duration Protein 9.1 g/dL Above high [facility]GEN (St [Mass/volume] in normal [facility] Serum or Plasma [facility], ) Microalbumin 3.9 g/dL Normal (applies [facility] (St [Mass/time] in to non-numeric [facility] Urine collected for results) Medical, unspecified PC) duration Globulin, Total 5.2 g/dL Above high [facility] (St normal Juan [facility]'s [facility], ) A/G Ratio 0.8 Below low normal [facility] ([facility], ) Bilirubin.total 0.4 Normal (applies [facility] ( St [Mass/volume] in mg/dL to non-numeric [facility] Serum or Plasma results) Medical, ) Alkaline 63 IU/L Normal (applies [facility] (St phosphatase to non-numeric [facility]'s [Enzymatic results) Medical, activity/volume] in ) Serum, Plasma or Blood Alanine 43 IU/L Normal (applies [facility] (St aminotransferase to non-numeric [facility] [Enzymatic results) Medical, activity/volume] in ) Serum or Plasma Aspartate 43 IU/L Above high [facility] (St aminotransferase normal [facility]'s [Enzymatic Medical, activity/volume] in ) Serum or Plasma ID Date Data Source [id number] 03/22/2020 12:00:00 AM EDT [facility] ([facility], ) Name Value Range Interpretation Description Data Sup porting Code Source(s) Document(s ) Leukocytes 11.7 Above high normal [facility] (St [#/volume] in x10E3/uL [facility] Blood by [facility], ) Automated count Erythrocytes 2.47 Below lower panic MEDGEN (S t [#/volume] in x10E6/uL limits [facility] Blood by [facility], ) Automated count Hemoglobin 8.2 g/dL Below low normal [facility] (St [Mass/volume] in [facility] Blood [facility], ) MCV 94 fL Normal (applies [facility] (St to non-numeric [facility]'s results) [facility], ) Hematocrit 23.3 % Below low normal [facility] (St [Volume Juan C's Fraction] of [facility], ) Blood by Automated count MCH 33.2 pg Above high normal [facility] ([facility], ) MCHC 35.2 Normal (applies [facility] (St g/dL to non-numeric [facility] results) [facility], ) RDW 19.0 % Above high normal [facility] ([facility], ) Platelets 198 Normal (applies [facility] (St [#/area] in x10E3/uL to non-numeric [facility] Blood by results) [facility], ) Microscopy high power field Neutrophils [#] 54 % Normal (applies [facility] ( St in Body fluid by to non-numeric [facility] Manual count results) [facility], ) Lymphs 13 % Normal (applies [facility] (St to non-numeric [facility] results) [facility], ) Monocytes 16 % Normal (applies [facility] (St [#/volume] in to non-numeric [facility] Cord blood results) [facility], ) Eos 11 % Normal (applies [facility] (St to non-numeric [facility] results) Medical, ) Neutrophils 6.4 Normal (applies [facility] (St (Absolute) x10E3/uL to non-numeric [facility] results) Medical, ) Basos 1 % Normal (applies [facility] (St to non-numeric [facility] results) Medical, ) Lymphs 1.5 Normal (applies [facility] (St (Absolute) x10E3/uL to non-numeric [facility] results) Medical, ) Monocytes(Absolu 1.9 Above high normal MEDGE N (St te) x10E3/uL [facility], ) Eos (Absolute) 1.3 Above high normal [facility] (St x10E3/uL [facility], ) Immature 5 % Normal (applies [facility] (St Granulocytes to non-numeric [facility] results) Medical, ) Baso (Absolute) 0.1 Normal (applies [facility] ( St x10E3/uL to non-numeric [facility] results) Medical, ) Immature Grans 0.6 Above high normal [facility] (St (Abs) x10E3/uL [facility], ) NRBC 4 % Above high normal [facility] ([facility], ) ID Date Data Source [id number] 03/22/2020 12:00:00 AM EDT [facility] ([facility], ) Name Value Range Interpretation Code Description Data Lisa rce(s) Supporting Document(s ) ID Date Data Source [id number] 03/22/2020 12:00:00 AM EDT [facility] ([facility], ) Name Value Range Interpretation Code Description Data Supporting Source(s) Document(s ) PTH, Intact 10 pg/mL Below low normal [facility] ([facility], ) ID Date Data Source [id number] 03/22/2020 12:00:00 AM EDT [facility] ([facility], ) Name Value Range Interpretation Code Description Data Supporting Source(s) Document(s ) Ferritin, 349 ng/mL Normal (applies to [facility] (St Serum non-numeric [facility] results) Medical, ) ID Date Data Source [id number] 03/22/2020 12:00:00 AM EDT [facility] ([facility], ) Name Value Range Interpretation Description Data Sup porting Code Source(s) Document(s ) Deprecated 5.4 mg/dL Above high normal [facility] (St Phosphorus [facility]'s [Mass/time] in Medical, ) 24 hour Urine ID Date Data Source [id number] 03/22/2020 12:00:00 AM EDT [facility] ([facility]) Name Value Range Interpretation Code Description Data Lisa rce(s) Supporting Document(s ) RAGINI Normal (applies to [facility] (St Interpreta non-numeric results) [facility] M edical, tion:U PC) ID Date Data Source [id number] 03/22/2020 12:00:00 AM EDT [facility] ([facility], ) Name Value Range Interpretation Description Data Sup porting Code Source(s) Document(s ) Vitamin D, 30.6 Normal (applies to [facility] (St 25-Hydroxy ng/mL non-numeric [facility] results) Medical, ) ID Date Data Source [id number] 03/22/2020 12:00:00 AM EDT [facility] ([facility], ) Name Value Range Interpretation Description Data Sup porting Code Source(s) Document(s ) Free [place] 141.85 Above high normal [facility] (St Lt mg/L [facility], PC) Free [place] 110.44 Above high normal [facility] (St Lt mg/L [facility], PC) [place] 1.28 Normal (applies to [facility] (S t a Ratio,U non-numeric [facility] results) [facility], ) ID Date Data Source [id number] 03/22/2020 12:00:00 AM EDT [facility] ([facility], ) Name Value Range Interpretation Description Data Sup porting Code Source(s) Document(s ) Free [place] 41.1 mg/L Above high normal [facility] (St Lt Chains,S [facility] Medical, PC) Free Lambda 176.0 mg/L Above high normal [facility] (S t Lt Chains,S [facility] Medical, PC) [place] 0.23 Below low normal [facility] (St a Ratio,S [facility], PC) ID Date Data Source [id number] 03/22/2020 12:00:00 AM EDT [facility] ([facility], ) Name Value Range Interpretation Code Description Data Supporting Source(s) Document(s ) Creatinine 94.7 mg/dL Normal (applies to [facility] (S t , Urine non-numeric [facility]'s results) [facility]) Protein/Cr 1072 mg/g Above high normal MEDGEN (St eat Ratio creat [facility], ) ID Date Data Source [id number] 03/22/2020 12:00:00 AM EDT [facility] (St [facility]) Name Value Range Interpretation Description Data Sup porting Code Source(s) Document(s ) Immunofixation Normal (applies MED[facility] (S t Result, Serum to non-numeric [facility]'s results) [facility]) Immunoglobulin G, 3867 Above high normal MEDG EN (St Qn, Serum mg/dL [facility]) Immunoglobulin A, 17 mg/dL Below low normal MEDGE N (St Qn, Serum [facility]) Immunoglobulin M, 8 mg/dL Below low normal MEDGE N (St Qn, Serum [facility]) ID Date Data Source [id number] 03/22/2020 12:00:00 AM EDT [facility] (St [facility], ) Name Value Range Interpretation Description Data Sup porting Code Source(s) Document(s ) Iron 248 ug/dL Below low normal [facility] (St Bind.Cap.(TIBC Juan C's ) [facility]) UIBC 172 ug/dL Normal (applies to [facility] (St non-numeric [facility]'s results) [facility]) Iron 31 % Normal (applies to [facility] (St saturation non-numeric [facility]'s [Mass results) [facility]) Fraction] in Serum or Plasma Iron 76 ug/dL Normal (applies to [facility] (St [Mass/volume] non-numeric [facility] in Serum or results) [facility], ) Plasma ID Date Data Source [id number] 03/22/2020 12:00:00 AM EDT MED[facility] ([facility]) Name Value Range Interpretation Description Data Sup porting Code Source(s) Document(s ) Protein,Tot 101.5 Normal (applies to MEDGEN (S t al,Urine mg/dL non-numeric [facility]'s results) [facility]) Albumin, U 36.2 % Normal (applies to [facility] (St non-numeric [facility]'s results) Medical, PC) Alpha-1-Nadine 5.7 % Normal (applies to [facility] (S t bulin, U non-numeric [facility] results) Medical, PC) Beta 29.7 % Normal (applies to [facility] (St Globulin, U non-numeric [facility] results) Medical, PC) Alpha-2-Nadine 12.8 % Normal (applies to [facility] (S t bulin, U non-numeric [facility] results) Medical, PC) Gamma 15.6 % Normal (applies to [facility] (St Globulin, U non-numeric [facility] results) Medical, PC) M-Kevyn, % Comment: Normal (applies to [facility] (St non-numeric [facility] results) Medical, PC) Please Normal (applies to [facility] (St note: non-numeric [facility] results) Medical, PC) PDF . Normal (applies to [facility] (St non-numeric [facility] results) Medical, ) ID Date Data Source [id number] 03/22/2020 12:00:00 AM EDT [facility] ([facility], ) Name Value Range Interpretation Description Data Sup porting Code Source(s) Document(s ) Microalbumin 4.0 g/dL Normal (applies [facility] (St [Mass/time] in to non-numeric [facility] Urine collected results) Medical, for unspecified PC) duration Kvgrk-8-Thzexyhq 0.2 g/dL Normal (applies [facility] (St to non-numeric [facility] results) Medical, PC) Beta globulin 0.7 g/dL Normal (applies [facility] (St [Mass/volume] in to non-numeric [facility] Urine by results) Medical, Electrophoresis PC) Uqrpu-5-Kyrssxyw 0.8 g/dL Normal (applies [facility] (St to non-numeric [facility] results) Medical, PC) Gamma globulin 3.5 g/dL Above high normal [facility] (St [Mass/volume] by [facility]'s Electrophoresis in Medical, Urine collected PC) for unspecified duration M-Kevyn 3.2 g/dL Above high normal [facility] ([facility], ) Globulin, Total 5.1 g/dL Above high normal [facility] ([facility], ) A/G Ratio 0.8 Normal (applies [facility] (St to non-numeric [facility] results) Medical, PC) Please note: Normal (applies [facility] (St to non-numeric [facility]'s results) Medical, PC) PDF . Normal (applies [facility] (St to non-numeric [facility] results) Medical, PC) ID Date Data Source [id number] 03/22/2020 12:00:00 AM EDT [facility] ([facility]) Name Value Range Interpretation Description Data Sup porting Code Source(s) Document(s ) Specific gravity 1.015 Normal (applies [facility] (St of Pericardial to non-numeric Juan C's fluid by results) Medical, Refractometry PC) pH of Lower 5.0 Normal (applies [facility] (St respiratory to non-numeric [facility] specimen results) Medical, PC) Urine-Color Yellow Normal (applies [facility] (St to non-numeric [facility]'s results) Medical, PC) Appearance of Clear Normal (applies [facility] (St Abdomen to non-numeric [facility]'s results) Medical, PC) WBC Esterase Negative Normal (applies [facility] (St to non-numeric [facility]'s results) Medical, PC) Protein Abnormal MED[facility] (St [Mass/volume] in (applies to Juan C's Lower non-numeric Medical, respiratory results) PC) specimen Glucose Negative Normal (applies [facility] (St [Mass/volume] in to non-numeric [facility] Urine collected results) Medical, for unspecified PC) duration Ketones Negative Normal (applies [facility] (St [Presence] in to non-numeric [facility] Blood by Tablet results) Medical, PC) Bilirubin Negative Normal (applies [facility] (St [Presence] in to non-numeric [facility] Peritoneal fluid results) Medical, PC) Occult Blood Abnormal MED[facility] (St (applies to Juan C's non-numeric Medical, results) PC) Urobilinogen,Mel 0.2 mg/dL Normal (applies [facility] (St i-Qn to non-numeric [facility] results) Medical, PC) Nitrite, Urine Negative Normal (applies [facility] (S t to non-numeric [facility] results) Medical, PC) Microscopic See below: Normal (applies [facility] (St Examination to non-numeric [facility]'s results) Medical, PC) ID Date Data Source [id number] 03/22/2020 12:00:00 AM EDT [facility] ([facility]) Name Value Range Interpretation Description Data Sup porting Code Source(s) Document(s ) WBC 0-5 Normal (applies [facility] (St to non-numeric [facility]'s results) Medical, ) RBC 3-10 Abnormal (applies [facility] (St to non-numeric [facility] results) Medical, ) Epithelial 0-10 Normal (applies [facility] (St Cells (non to non-numeric Juan C's renal) results) Medical, ) Crystals Present Abnormal (applies [facility] (St [#/area] in to non-numeric [facility] Body fluid by results) Medical, ) Light microscopy Mucus Threads Present Normal (applies [facility] (St to non-numeric [facility]'s results) Medical, ) Crystal Type Calcium Normal (applies [facility] (St Oxalate to non-numeric [facility]'s results) Medical, ) Bacteria Few Normal (applies [facility] (St [Presence] in to non-numeric [facility] Prostatic results) Medical, ) fluid by Light microscopy ID Date Data Source [id number] 03/22/2020 12:00:00 AM EDT [facility] ([facility], ) Name Value Range Interpretation Description Data Sup porting Code Source(s) Document(s ) Glucose 88 mg/dL Normal (applies [facility] (St [Mass/volume] in to non-numeric [facility] Urine collected for results) [facility], unspecified PC) duration Urea nitrogen 61 mg/dL Above high [facility] (St [Mass/volume] in normal [facility] Serum or Plasma Medical, ) Creatinine 5.97 Above high [facility] (St [Interpretation] in mg/dL normal [facility] Urine [facility], ) eGFR If NonAfricn 9 Below low normal MEDGE N (St Am mL/min/1 [facility]'s .73 [facility], ) eGFR If Africn Am 10 Below low normal MEDGE N (St mL/min/1 [facility] .73 Medical, ) BUN/Creatinine 10 Normal (applies [facility]GEN (S t Ratio to non-numeric [facility]'s results) Medical, ) Sodium 134 Normal (applies [facility] (St [Moles/volume] in mmol/L to non-numeric [facility] Serum or Plasma results) Medical, ) Potassium 4.1 Normal (applies [facility] (St [Mass/volume] in mmol/L to non-numeric [facility] Blood results) Medical, ) Chloride 98 Normal (applies [facility] (St [Moles/volume] in mmol/L to non-numeric [facility] Serum or Plasma results) Medical, ) Carbon dioxide, 20 Normal (applies [facility] ( St total mmol/L to non-numeric [facility] [Moles/volume] in results) Medical, Serum or Plasma PC) Calcium 12.0 Above high [facility] (St [Moles/volume] in mg/dL normal [facility] Urine collected for Medical, unspecified ) duration Protein 9.1 g/dL Above high [facility] (St [Mass/volume] in normal [facility] Serum or Plasma [facility], ) Microalbumin 3.9 g/dL Normal (applies [facility] (St [Mass/time] in to non-numeric [facility] Urine collected for results) Medical, unspecified ) duration Globulin, Total 5.2 g/dL Above high MEDGEN (St normal [facility], ) A/G Ratio 0.8 Below low normal [facility] ([facility], ) Bilirubin.total 0.4 Normal (applies [facility]GEN ( St [Mass/volume] in mg/dL to non-numeric [facility] Serum or Plasma results) [facility], ) Alkaline 63 IU/L Normal (applies [facility]GEN (St phosphatase to non-numeric [facility]'s [Enzymatic results) Medical, activity/volume] in ) Serum, Plasma or Blood Aspartate 43 IU/L Above high MEDGEN (St aminotransferase normal Juan C's [Enzymatic Medical, activity/volume] in ) Serum or Plasma Alanine 43 IU/L Normal (applies [facility]GEN (St aminotransferase to non-numeric [facility]'s [Enzymatic results) Medical, activity/volume] in ) Serum or Plasma ID Date Data Source [id number] 03/22/2020 12:00:00 AM EDT [facility] ([facility], ) Name Value Range Interpretation Description Data Sup porting Code Source(s) Document(s ) Leukocytes 11.7 Above high normal [facility] (St [#/volume] in x10E3/uL [facility] Blood by [facility], ) Automated count Erythrocytes 2.47 Below lower panic MEDGEN (S t [#/volume] in x10E6/uL limits [facility]'s Blood by [facility], ) Automated count Hemoglobin 8.2 g/dL Below low normal MED[facility] (St [Mass/volume] in [facility] Blood [facility], ) MCV 94 fL Normal (applies MEDGEN (St to non-numeric Juan C's results) [facility]) Hematocrit 23.3 % Below low normal [facility] (St [Volume Juan C's Fraction] of [facility]) Blood by Automated count MCH 33.2 pg Above high normal [facility] ([facility], ) MCHC 35.2 Normal (applies [facility]GEN (St g/dL to non-numeric Juan C's results) [facility]) RDW 19.0 % Above high normal [facility] ([facility], ) Platelets 198 Normal (applies MEDGEN (St [#/area] in x10E3/uL to non-numeric Juan C's Blood by results) [facility]) Microscopy high power field Neutrophils [#] 54 % Normal (applies MEDGEN ( St in Body fluid by to non-numeric [facility] C's Manual count results) [facility]) Lymphs 13 % Normal (applies MEDGEN (St to non-numeric Juan C's results) [facility]) Monocytes 16 % Normal (applies MEDGEN (St [#/volume] in to non-numeric [facility]'s Cord blood results) [facility]) Eos 11 % Normal (applies MEDGEN (St to non-numeric Juan C's results) [facility]) Basos 1 % Normal (applies MEDGEN (St to non-numeric Juan C's results) [facility]) Neutrophils 6.4 Normal (applies MEDGEN (St (Absolute) x10E3/uL to non-numeric Juan C's results) [facility]) Lymphs 1.5 Normal (applies [facility]GEN (St (Absolute) x10E3/uL to non-numeric Juan C's results) [facility]) Monocytes(Absolu 1.9 Above high normal MEDGE N (St te) x10E3/uL [facility]'s [facility]) Eos (Absolute) 1.3 Above high normal [facility] (St x10E3/uL [facility]'s [facility]) Baso (Absolute) 0.1 Normal (applies [facility]GEN ( St x10E3/uL to non-numeric [facility] C's results) [facility]) Immature 5 % Normal (applies [facility] (St Granulocytes to non-numeric Juan C's results) [facility]) Immature Grans 0.6 Above high normal [facility] (St (Abs) x10E3/uL [facility]'s [facility]) NRBC 4 % Above high normal [facility] ([facility], ) ID Date Data Source [id number] 03/22/2020 12:00:00 AM EDT [facility] ([facility], ) Name Value Range Interpretation Code Description Data Lisa rce(s) Supporting Document(s ) ID Date Data Source [id number] 03/22/2020 12:00:00 AM EDT [facility] ([facility], ) Name Value Range Interpretation Code Description Data Supporting Source(s) Document(s ) PTH, Intact 10 pg/mL Below low normal [facility] ([facility], ) PTH, Intact 14 pg/mL Below low normal [facility] ([facility], ) ID Date Data Source [id number] 03/22/2020 12:00:00 AM EDT [facility] ([facility], ) Name Value Range Interpretation Code Description Data Supporting Source(s) Document(s ) Ferritin, 349 ng/mL Normal (applies to MEDGEN (St Serum non-numeric [facility]'s results) Medical, ) Ferritin, 329 ng/mL Normal (applies to [facility]GEN (St Serum non-numeric [facility] C's results) [facility], ) ID Date Data Source [id number] 03/22/2020 12:00:00 AM EDT [facility] ([facility], ) Name Value Range Interpretation Description Data Sup porting Code Source(s) Document(s ) Deprecated 5.4 mg/dL Above high normal [facility] (St Phosphorus [facility]'s [Mass/time] in Medical, ) 24 hour Urine Deprecated 4.8 mg/dL Above high normal [facility] (St Phosphorus [facility] [Mass/time] in Medical, ) 24 hour Urine ID Date Data Source [id number] 03/22/2020 12:00:00 AM EDT [facility] ([facility], ) Name Value Range Interpretation Code Description Data Lisa rce(s) Supporting Document(s ) ID Date Data Source [id number] 03/22/2020 12:00:00 AM EDT [facility] ([facility], ) Name Value Range Interpretation Description Data Sup porting Code Source(s) Document(s ) Vitamin D, 42.8 Normal (applies to MEDGEN (St 25-Hydroxy ng/mL non-numeric [facility]'s results) [facility], ) Vitamin D, 30.6 Normal (applies to [facility]GEN (St 25-Hydroxy ng/mL non-numeric [facility] results) Medical, ) Vitamin D, 36.2 Normal (applies to [facility]GEN (St 25-Hydroxy ng/mL non-numeric [facility] results) Medical, PC) ID Date Data Source [id number] 03/22/2020 12:00:00 AM EDT [facility] ([facility]) Name Value Range Interpretation Description Data Sup porting Code Source(s) Document(s ) Free [place] 141.85 Above high normal MEDGEN (St Lt mg/L [facility], PC) Free Lambda 110.44 Above high normal MEDGEN (St Lt mg/L [facility], PC) [place] 1.28 Normal (applies to MEDGEN (S t a Ratio,U non-numeric [facility] results) Medical, ) Free [place] 476.00 Above high normal MED[facility] (St Lt mg/L [facility], PC) [place] 10.70 Above high normal MED[facility] (St a Ratio,U [facility], PC) Free Lambda 44.50 mg/L Above high normal [facility] (S t Lt [facility], PC) ID Date Data Source [id number] 03/22/2020 12:00:00 AM EDT [facility] ([facility]) Name Value Range Interpretation Description Data Sup porting Code Source(s) Document(s ) Free [place] 41.1 mg/L Above high normal MEDGEN (St Lt Chains,S [facility], PC) Free [place] 176.0 mg/L Above high normal MEDGEN (S t Lt Chains,S [facility], PC) [place] 0.23 Below low normal MED[facility] (St a Ratio,S [facility], PC) Free [place] 38.9 mg/L Above high normal MEDGEN (St Lt Chains,S [facility], PC) Free [place]ambda 133.0 mg/L Above high normal MEDGEN (S t Lt Chains,S [facility], PC) [place] 0.29 Normal (applies to MEDGEN (S t a Ratio,S non-numeric [facility] results) Medical, ) ID Date Data Source [id number] 03/22/2020 12:00:00 AM EDT [facility] ([facility], ) Name Value Range Interpretation Code Description Data Supporting Source(s) Document(s ) Creatinine 94.7 mg/dL Normal (applies to MEDGEN (S t , Urine non-numeric [facility] results) [facility] [facility]) Protein/Cr 1072 mg/g Above high normal MEDGEN (St eat Ratio creat [facility], ) Creatinine 175.9 Normal (applies to MEDGEN (St , Urine mg/dL non-numeric Juan C's results) [facility]) Protein/Cr 833 mg/g Above high normal [facility] ID Date Data Source [id number] 03/22/2020 12:00:00 AM EDT MEDGEN (St [facility], ) Name Value Range Interpretation Description Data Sup porting Code Source(s) Document(s ) Immunoglobulin G, 3867 Above high normal MEDG EN (St Qn, Serum mg/dL [facility], ) Immunoglobulin A, 17 mg/dL Below low normal MEDGE N (St Qn, Serum [facility], ) Immunoglobulin M, 8 mg/dL Below low normal MEDGE N (St Qn, Serum [facility], ) Immunoglobulin G, 3973 Above high normal MEDG EN (St Qn, Serum mg/dL [facility]) Immunoglobulin A, 25 mg/dL Below low normal MEDGE N (St Qn, Serum [facility], ) Immunoglobulin M, 13 mg/dL Below low normal MEDGE N (St Qn, Serum [facility], ) ID Date Data Source [id number] 03/22/2020 12:00:00 AM EDT MEDGEN ([facility], ) Name Value Range Interpretation Description Data Sup porting Code Source(s) Document(s ) Iron 248 ug/dL Below low normal MEDGEN (St Bind.Cap.(TIBC Juan C's ) [facility], ) UIBC 172 ug/dL Normal (applies to MEDGEN (St non-numeric Juan C's results) [facility]) Iron 76 ug/dL Normal (applies to MEDGEN (St [Mass/volume] non-numeric Juan C's in Serum or results) [facility], ) Plasma Iron 31 % Normal (applies to MEDGEN (St saturation non-numeric Juan C's [Mass results) Medical, ) Fraction] in Serum or Plasma Iron 297 ug/dL Normal (applies to MEDGEN (St Bind.Cap.(TIBC non-numeric Juan C's ) results) [facility], ) UIBC 222 ug/dL Normal (applies to MEDGEN (St non-numeric Juan C's results) [facility], ) Iron 75 ug/dL Normal (applies to MEDGEN (St [Mass/volume] non-numeric Juan C's in Serum or results) [facility], ) Plasma Iron 25 % Normal (applies to MEDGEN (St saturation non-numeric Juan C's [Mass results) [facility], ) Fraction] in Serum or Plasma ID Date Data Source [id number] 03/22/2020 12:00:00 AM EDT MEDGEN (St [facility], ) Name Value Range Interpretation Code Description Data Supporting Source(s) Document(s ) Protein,To 101.5 Normal (applies to MEDGEN (St ruth,Urine mg/dL non-numeric Juan C's results) [facility], ) Albumin, U 36.2 % Normal (applies to MEDGEN (St non-numeric Juan C's results) [facility], ) Alpha-1-Gl 5.7 % Normal (applies to MEDGEN (St obulin, U non-numeric Juan C's results) [facility], ) Alpha-2-Gl 12.8 % Normal (applies to MEDGEN (St obulin, U non-numeric Juan C's results) [facility], ) Beta 29.7 % Normal (applies to MEDGEN (St Globulin, non-numeric Juan C's U results) [facility], ) Gamma 15.6 % Normal (applies to MEDGEN (St Globulin, non-numeric Juan C's U results) [facility], ) M-Kevyn, % Comment: Normal (applies to MEDGEN (St non-numeric Juan C's results) [facility], ) PDF . Normal (applies to MEDGEN (St non-numeric Juan C's results) [facility], ) Protein,To 146.6 Normal (applies to MEDGEN (St ruth,Urine mg/dL non-numeric Juan C's results) [facility], ) Albumin, U 47.8 % Normal (applies to MEDGEN (St non-numeric Juan C's results) [facility], ) Alpha-1-Gl 3.5 % Normal (applies to MEDGEN (St obulin, U non-numeric Juan C's results) Medical, ) Alpha-2-Gl 9.6 % Normal (applies to MEDGEN (St obulin, U non-numeric Juan C's results) Medical, ) Beta 24.4 % Normal (applies to MEDGEN (St Globulin, non-numeric Juan C's U results) Medical, ) Gamma 14.8 % Normal (applies to MEDGEN (St Globulin, non-numeric Juan C's U results) Medical, ) M-Kevyn, % 9.8 % Above high normal MEDGEN ([facility], ) PDF . Normal (applies to MEDGEN (St non-numeric Juan C's results) Medical, ) ID Date Data Source [id number] 03/22/2020 12:00:00 AM EDT MEDGEN (St [facility], ) Name Value Range Interpretation Description Data Sup porting Code Source(s) Document(s ) Microalbumin 4.0 g/dL Normal (applies MEDGEN (St [Mass/time] in to non-numeric Juan C's Urine collected results) Medical, for unspecified PC) duration Dzrvl-0-Lkswmxna 0.2 g/dL Normal (applies MEDGEN (St to non-numeric Juan C's results) Medical, ) Hsdno-7-Czaiyehb 0.8 g/dL Normal (applies MEDGEN (St to non-numeric Juan C's results) [facility], ) Beta globulin 0.7 g/dL Normal (applies MEDGEN (St [Mass/volume] in to non-numeric Juan C's Urine by results) Medical, Electrophoresis PC) Gamma globulin 3.5 g/dL Above high normal MEDGEN (St [Mass/volume] by Juan C's Electrophoresis in Medical, Urine collected PC) for unspecified duration M-Kevyn 3.2 g/dL Above high normal MEDGEN ([facility], ) Globulin, Total 5.1 g/dL Above high normal MEDGEN ([facility], ) A/G Ratio 0.8 Normal (applies MEDGEN (St to non-numeric Juan C's results) Medical, ) PDF . Normal (applies MEDGEN (St to non-numeric Juan C's results) Medical, ) Protein 9.0 g/dL Above high normal MEDGEN (St [Mass/volume] in Juan C's Serum or Plasma Medical, ) Microalbumin 4.0 g/dL Normal (applies MEDGEN (St [Mass/time] in to non-numeric Juan C's Urine collected results) Medical, for unspecified PC) duration Axjia-8-Tigqmqrt 0.2 g/dL Normal (applies MEDGEN (St to non-numeric Juan C's results) Medical, PC) Tuyeg-5-Uaofyqhm 0.8 g/dL Normal (applies MEDGEN (St to non-numeric Juan C's results) Medical, PC) Beta globulin 0.8 g/dL Normal (applies MEDGEN (St [Mass/volume] in to non-numeric Juan C's Urine by results) Medical, Electrophoresis PC) Gamma globulin 3.2 g/dL Above high normal MEDGEN (St [Mass/volume] by [facility] Electrophoresis in Medical, Urine collected PC) for unspecified duration M-Kevyn 2.9 g/dL Above high normal MEDGEN ([facility], ) Globulin, Total 5.0 g/dL Above high normal MEDGEN ([facility], ) A/G Ratio 0.8 Normal (applies MEDGEN (St to non-numeric Juan C's results) Medical, ) PDF . Normal (applies MEDGEN (St to non-numeric Juan C's results) Medical, ) ID Date Data Source [id number] 03/22/2020 12:00:00 AM EDT MEDGEN (St [facility], ) Name Value Range Interpretation Description Data Sup porting Code Source(s) Document(s ) Specific gravity 1.015 Normal (applies MEDGEN (St of Pericardial to non-numeric Juan C's fluid by results) Medical, Refractometry ) pH of Lower 5.0 Normal (applies MEDGEN (St respiratory to non-numeric Juan C's specimen results) Medical, ) Urine-Color Yellow Normal (applies MEDGEN (St to non-numeric Juan C's results) Medical, PC) Appearance of Clear Normal (applies MEDGEN (St Abdomen to non-numeric Juan C's results) Medical, PC) WBC Esterase Negative Normal (applies MEDGEN (St to non-numeric Juan C's results) Medical, PC) Glucose Negative Normal (applies MEDGEN (St [Mass/volume] in to non-numeric Juan C's Urine collected results) Medical, for unspecified PC) duration Protein Abnormal MEDGEN (St [Mass/volume] in (applies to Juan C's Lower non-numeric Medical, respiratory results) PC) specimen Ketones Negative Normal (applies MEDGEN (St [Presence] in to non-numeric Juan C's Blood by Tablet results) Medical, PC) Occult Blood Abnormal MEDGEN (St (applies to Juan C's non-numeric Medical, results) PC) Bilirubin Negative Normal (applies MEDGEN (St [Presence] in to non-numeric Juan C's Peritoneal fluid results) Medical, PC) Urobilinogen,Mel 0.2 mg/dL Normal (applies MEDGEN (St i-Qn to non-numeric Juan C's results) Medical, PC) Nitrite, Urine Negative Normal (applies MEDGEN (S t to non-numeric Juan C's results) Medical, PC) Microscopic See below: Normal (applies MEDGEN (St Examination to non-numeric Juan C's results) Medical, PC) Specific gravity 1.019 Normal (applies MEDGEN (St of Pericardial to non-numeric Juan C's fluid by results) Medical, Refractometry PC) pH of Lower 5.0 Normal (applies MEDGEN (St respiratory to non-numeric Juan C's specimen results) Medical, PC) Urine-Color Yellow Normal (applies MEDGEN (St to non-numeric Juan C's results) Medical, PC) Appearance of Clear Normal (applies MEDGEN (St Abdomen to non-numeric Juan C's results) Medical, PC) WBC Esterase Negative Normal (applies MEDGEN (St to non-numeric Juan C's results) Medical, PC) Protein Abnormal MEDGEN (St [Mass/volume] in (applies to Juan C's Lower non-numeric Medical, respiratory results) PC) specimen Glucose Negative Normal (applies MEDGEN (St [Mass/volume] in to non-numeric Juan C's Urine collected results) Medical, for unspecified PC) duration Ketones Negative Normal (applies MEDGEN (St [Presence] in to non-numeric Juan C's Blood by Tablet results) Medical, PC) Occult Blood Negative Normal (applies MEDGEN (St to non-numeric Juan C's results) Medical, PC) Bilirubin Negative Normal (applies MEDGEN (St [Presence] in to non-numeric Juan C's Peritoneal fluid results) Medical, PC) Urobilinogen,Mel 0.2 mg/dL Normal (applies MEDGEN (St i-Qn to non-numeric Juan C's results) Medical, PC) Nitrite, Urine Negative Normal (applies MEDGEN (S t to non-numeric Juan C's results) Medical, ) Microscopic See below: Normal (applies MEDGEN (St Examination to non-numeric Juan C's results) Medical, ) ID Date Data Source [id number] 03/22/2020 12:00:00 AM EDT MEDGEN ([facility], ) Name Value Range Interpretation Description Data Sup porting Code Source(s) Document(s ) WBC 0-5 Normal (applies MEDGEN (St to non-numeric Juan C's results) Medical, PC) RBC 3-10 Abnormal (applies MEDGEN (St to non-numeric Juan C's results) Medical, ) Epithelial 0-10 Normal (applies MEDGEN (St Cells (non to non-numeric Juan C's renal) results) Medical, ) Crystals Present Abnormal (applies MEDGEN (St [#/area] in to non-numeric Juan C's Body fluid by results) Medical, ) Light microscopy Crystal Type Calcium Normal (applies MEDGEN (St Oxalate to non-numeric Juan C's results) Medical, ) Mucus Threads Present Normal (applies MEDGEN (St to non-numeric Juan C's results) Medical, ) Bacteria Few Normal (applies MEDGEN (St [Presence] in to non-numeric Juan C's Prostatic results) Medical, ) fluid by Light microscopy WBC 0-5 Normal (applies MEDGEN (St to non-numeric Juan C's results) Medical, PC) RBC 0-2 Normal (applies MEDGEN (St to non-numeric Juan C's results) Medical, PC) Epithelial None seen Normal (applies MEDGEN (St Cells (non to non-numeric Juan C's renal) results) Medical, ) Casts Present Abnormal (applies MEDGEN (St [#/area] in to non-numeric Juan C's Urine results) Medical, ) sediment by Automated count Cast Type Granular Abnormal (applies MEDGEN (St casts to non-numeric Juan C's results) Medical, ) Crystal Type Calcium Normal (applies MEDGEN (St Oxalate to non-numeric Juan C's results) Medical, ) Crystals Present Abnormal (applies MEDGEN (St [#/area] in to non-numeric Juan C's Body fluid by results) Medical, ) Light microscopy Mucus Threads Present Normal (applies MEDGEN (St to non-numeric Juan C's results) Medical, ) Bacteria Few Normal (applies MEDGEN (St [Presence] in to non-numeric Juan C's Prostatic results) Medical, ) fluid by Light microscopy ID Date Data Source [id number] 03/22/2020 12:00:00 AM EDT MEDGEN (St [facility], ) Name Value Range Interpretation Description Data Sup porting Code Source(s) Document(s ) Glucose 88 mg/dL Normal (applies MEDGEN (St [Mass/volume] in to non-numeric Juan C's Urine collected for results) Medical, unspecified PC) duration Creatinine 5.97 Above high MEDGEN (St [Interpretation] in mg/dL normal Juan C's Urine Medical, ) Urea nitrogen 61 mg/dL Above high MEDGEN (St [Mass/volume] in normal Juan C's Serum or Plasma [facility], ) eGFR If NonAfricn 9 Below low normal MEDGE N (St Am mL/min/[address] Juan C's [address] [place] [id number], ) BUN/Creatinine 10 Normal (applies MEDGEN (S t Ratio to non-numeric Juan C's results) Medical, ) eGFR If Africn Am 10 Below low normal MEDGE N (St mL/min/1 [facility]'s 73 [facility], ) Sodium 134 Normal (applies MEDGEN (St [Moles/volume] in mmol/L to non-numeric Juan C's Serum or Plasma results) Medical, ) Potassium 4.1 Normal (applies MEDGEN (St [Mass/volume] in mmol/L to non-numeric Juan C's Blood results) Medical, ) Chloride 98 Normal (applies MEDGEN (St [Moles/volume] in mmol/L to non-numeric Juan C's Serum or Plasma results) Medical, ) Carbon dioxide, 20 Normal (applies MEDGEN ( St total mmol/L to non-numeric Juan C's [Moles/volume] in results) Medical, Serum or Plasma PC) Calcium 12.0 Above high MEDGEN (St [Moles/volume] in mg/dL normal Juan C's Urine collected for Medical, unspecified PC) duration Protein 9.1 g/dL Above high MEDGEN (St [Mass/volume] in normal Juan C's Serum or Plasma Medical, ) Globulin, Total 5.2 g/dL Above high MEDGEN (St normal Juan C's Medical, ) Microalbumin 3.9 g/dL Normal (applies MEDGEN (St [Mass/time] in to non-numeric Juan C's Urine collected for results) [facility], unspecified ) duration A/G Ratio 0.8 Below low normal MEDGEN ([facility], ) Bilirubin.total 0.4 Normal (applies MEDGEN ( St [Mass/volume] in mg/dL to non-numeric Juan C's Serum or Plasma results) [facility], ) Aspartate 43 IU/L Above high MEDGEN (St aminotransferase normal Juan C's [Enzymatic Medical, activity/volume] in ) Serum or Plasma Alkaline 63 IU/L Normal (applies MEDGEN (St phosphatase to non-numeric Juan C's [Enzymatic results) Medical, activity/volume] in ) Serum, Plasma or Blood Alanine 43 IU/L Normal (applies MEDGEN (St aminotransferase to non-numeric Juan C's [Enzymatic results) Medical, activity/volume] in ) Serum or Plasma Glucose 87 mg/dL Normal (applies MEDGEN (St [Mass/volume] in to non-numeric Juan C's Urine collected for results) [facility], unspecified ) duration Urea nitrogen 36 mg/dL Above high MEDGEN (St [Mass/volume] in normal Juan C's Serum or Plasma [facility], ) Creatinine 2.81 Above high MEDGEN (St [Interpretation] in mg/dL normal Juan C's Urine [facility], ) eGFR If NonAfricn 21 Below low normal MEDGE N (St Am mL/min/1 [facility]'s .73 [facility], ) eGFR If Africn Am 24 Below low normal MEDGE N (St mL/min/1 [facility]'s .73 [facility], ) BUN/Creatinine 13 Normal (applies MEDGEN (S t Ratio to non-numeric Juan C's results) [facility], ) Sodium 135 Normal (applies MEDGEN (St [Moles/volume] in mmol/L to non-numeric Juan C's Serum or Plasma results) [facility], ) Potassium 4.1 Normal (applies MEDGEN (St [Mass/volume] in mmol/L to non-numeric Juan C's Blood results) [facility], ) Chloride 102 Normal (applies MEDGEN (St [Moles/volume] in mmol/L to non-numeric Juan C's Serum or Plasma results) [facility], ) Carbon dioxide, 20 Normal (applies MEDGEN ( St total mmol/L to non-numeric Juan C's [Moles/volume] in results) Medical, Serum or Plasma PC) Calcium 9.8 Normal (applies MEDGEN (St [Moles/volume] in mg/dL to non-numeric Juan C's Urine collected for results) [facility], unspecified ) duration Microalbumin 4.2 g/dL Normal (applies MEDGEN (St [Mass/time] in to non-numeric Juan C's Urine collected for results) Medical, unspecified ) duration Protein 9.0 g/dL Above high MEDGEN (St [Mass/volume] in normal Juan C's Serum or Plasma [facility], ) Globulin, Total 4.8 g/dL Above high MEDGEN (St normal [facility], ) A/G Ratio 0.9 Below low normal [facility], ) Bilirubin.total 0.3 Normal (applies MEDGEN ( St [Mass/volume] in mg/dL to non-numeric Juan C's Serum or Plasma results) Medical, ) Alkaline 53 IU/L Normal (applies MEDGEN (St phosphatase to non-numeric Juan C's [Enzymatic results) Medical, activity/volume] in ) Serum, Plasma or Blood Aspartate 22 IU/L Normal (applies MEDGEN (St aminotransferase to non-numeric Juan C's [Enzymatic results) Medical, activity/volume] in ) Serum or Plasma Alanine 20 IU/L Normal (applies MEDGEN (St aminotransferase to non-numeric Juan C's [Enzymatic results) Medical, activity/volume] in PC) Serum or Plasma ID Date Data Source [id number] 03/22/2020 12:00:00 AM EDT MEDGEN ([facility], ) Name Value Range Interpretation Description Data Sup porting Code Source(s) Document(s ) Leukocytes 11.7 Above high normal MEDGEN (St [#/volume] in x10E3/uL Juan C's Blood by [facility], ) Automated count Erythrocytes 2.47 Below lower panic MEDGEN (S t [#/volume] in x10E6/uL limits Juan C's Blood by [facility], ) Automated count Hematocrit 23.3 % Below low normal MEDGEN (St [Volume Juan C's Fraction] of [facility], ) Blood by Automated count Hemoglobin 8.2 g/dL Below low normal MEDGEN (St [Mass/volume] in Juan C's Blood [facility], ) MCV 94 fL Normal (applies MEDGEN (St to non-numeric Juan C's results) [facility], ) MCH 33.2 pg Above high normal MEDGEN ([facility], ) MCHC 35.2 Normal (applies MEDGEN (St g/dL to non-numeric Juan C's results) [facility]) RDW 19.0 % Above high normal MEDGEN ([facility], ) Platelets 198 Normal (applies MEDGEN (St [#/area] in x10E3/uL to non-numeric Juan C's Blood by results) [facility], ) Microscopy high power field Neutrophils [#] 54 % Normal (applies MEDGEN ( St in Body fluid by to non-numeric Juan C's Manual count results) [facility]) Lymphs 13 % Normal (applies MEDGEN (St to non-numeric Juan C's results) [facility]) Monocytes 16 % Normal (applies MEDGEN (St [#/volume] in to non-numeric Juan C's Cord blood results) [facility]) Basos 1 % Normal (applies MEDGEN (St to non-numeric Juan C's results) [facility]) Eos 11 % Normal (applies MEDGEN (St to non-numeric Juan C's results) [facility]) Neutrophils 6.4 Normal (applies MEDGEN (St (Absolute) x10E3/uL to non-numeric Juan C's results) [facility]) Monocytes(Absolu 1.9 Above high normal MEDGE N (St te) x10E3/uL Juan C's [facility]) Lymphs 1.5 Normal (applies MEDGEN (St (Absolute) x10E3/uL to non-numeric Juan C's results) [facility]) Eos (Absolute) 1.3 Above high normal MEDGEN (St x10E3/uL Juan C's [facility], ) Baso (Absolute) 0.1 Normal (applies MEDGEN ( St x10E3/uL to non-numeric Juan C's results) [facility]) Immature 5 % Normal (applies MEDGEN (St Granulocytes to non-numeric Juan C's results) [facility]) Immature Grans 0.6 Above high normal MEDGEN (St (Abs) x10E3/uL Juan C's [facility], ) NRBC 4 % Above high normal [facility]GEN ([facility], ) Leukocytes 11.8 Above high normal MEDGEN (St [#/volume] in x10E3/uL Juan C's Blood by [facility], ) Automated count Erythrocytes 3.28 Below low normal MEDGEN (St [#/volume] in x10E6/uL Juan C's Blood by [facility], ) Automated count Hemoglobin 10.8 Below low normal MEDGEN (St [Mass/volume] in g/dL Juan C's Blood [facility], ) Hematocrit 31.7 % Below low normal MEDGEN (St [Volume Juan C's Fraction] of [facility], ) Blood by Automated count MCH 32.9 pg Normal (applies MEDGEN (St to non-numeric Juan C's results) [facility], ) MCV 97 fL Normal (applies MEDGEN (St to non-numeric Juan C's results) [facility], ) MCHC 34.1 Normal (applies MEDGEN (St g/dL to non-numeric Juan C's results) [facility], ) RDW 17.5 % Above high normal MEDGEN ([facility], ) Platelets 237 Normal (applies MEDGEN (St [#/area] in x10E3/uL to non-numeric Juan C's Blood by results) [facility], ) Microscopy high power field Neutrophils [#] 53 % Normal (applies MEDGEN ( St in Body fluid by to non-numeric Juan C's Manual count results) [facility], ) Lymphs 20 % Normal (applies MEDGEN (St to non-numeric Juan C's results) [facility]) Eos 12 % Normal (applies MEDGEN (St to non-numeric Ujan C's results) [facility]) Monocytes 13 % Normal (applies MEDGEN (St [#/volume] in to non-numeric Juan C's Cord blood results) [facility], ) Basos 1 % Normal (applies MEDGEN (St to non-numeric Juan C's results) [facility]) Neutrophils 6.2 Normal (applies MEDGEN (St (Absolute) x10E3/uL to non-numeric Juan C's results) [facility]) Lymphs 2.4 Normal (applies MEDGEN (St (Absolute) x10E3/uL to non-numeric Juan C's results) [facility]) Monocytes(Absolu 1.5 Above high normal MEDGE N (St te) x10E3/uL Juan C's [facility], ) Eos (Absolute) 1.5 Above high normal MEDGEN (St x10E3/uL Juan C's [facility], ) Immature 1 % Normal (applies MEDGEN (St Granulocytes to non-numeric Juan C's results) [facility], ) Baso (Absolute) 0.1 Normal (applies MEDGEN ( St x10E3/uL to non-numeric Juan C's results) [facility], ) Immature Grans 0.2 Above high normal MEDGEN (St (Abs) x10E3/uL Juan C's [facility], ) Hematology Note: Normal (applies MEDGEN (St Comments: to non-numeric Juan C's results) [facility], ) Leukocytes 9.5 Normal (applies MEDGEN (St [#/volume] in x10E3/uL to non-numeric Juan C's Blood by results) [facility], ) Automated count Erythrocytes 3.28 Below low normal MEDGEN (St [#/volume] in x10E6/uL Juan C's Blood by [facility], ) Automated count Hemoglobin 10.9 Below low normal MEDGEN (St [Mass/volume] in g/dL Juan C's Blood [facility], ) Hematocrit 32.1 % Below low normal MEDGEN (St [Volume Juan C's Fraction] of [facility]) Blood by Automated count MCV 98 fL Above high normal MEDGEN ([facility], ) MCH 33.2 pg Above high normal MEDGEN ([facility], ) RDW 17.3 % Above high normal MEDGEN ([facility], ) MCHC 34.0 Normal (applies MEDGEN (St g/dL to non-numeric Juan C's results) [facility], ) Platelets 240 Normal (applies MEDGEN (St [#/area] in x10E3/uL to non-numeric Juan C's Blood by results) [facility], ) Microscopy high power field Lymphs 19 % Normal (applies MEDGEN (St to non-numeric Juan C's results) [facility] [facility], ) Neutrophils [#] 53 % Normal (applies MEDGEN ( St in Body fluid by to non-numeric [facility] Manual count results) [facility], ) Monocytes 15 % Normal (applies MEDGEN (St [#/volume] in to non-numeric [facility] Cord blood results) [facility]) Eos 11 % Normal (applies MEDGEN (St to non-numeric [facility] results) [facility], ) Basos 0 % Normal (applies MEDGEN (St to non-numeric [facility] results) [facility], ) Neutrophils 5.1 Normal (applies MEDGEN (St (Absolute) x10E3/uL to non-numeric [facility] results) Medical, ) Lymphs 1.8 Normal (applies MEDGEN (St (Absolute) x10E3/uL to non-numeric [facility] results) Medical, ) Eos (Absolute) 1.0 Above high normal MEDGEN (St x10E3/uL [facility]) Monocytes(Absolu 1.5 Above high normal MEDGE N (St te) x10E3/uL [facility], ) Baso (Absolute) 0.0 Normal (applies MEDGEN ( St x10E3/uL to non-numeric [facility] results) Medical, ) Immature 2 % Normal (applies MEDGEN (St Granulocytes to non-numeric [facility] results) Medical, ) Hematology Note: Normal (applies MEDGEN (St Comments: to non-numeric [facility] results) Medical, ) Immature Grans 0.2 Above high normal MEDGEN (St (Abs) x10E3/uL [facility], ) ID Date Data Source [id number] 03/22/2020 12:00:00 AM EDT [facility] ([facility], ) Name Value Range Interpretation Code Description Data Lisa rce(s) Supporting Document(s ) ID Date Data Source [id number] 03/22/2020 12:00:00 AM EDT [facility] ([facility], ) Name Value Range Interpretation Code Description Data Supporting Source(s) Document(s ) PTH, Intact 10 pg/mL Below low normal [facility] ([facility], ) ID Date Data Source [id number] 03/22/2020 12:00:00 AM EDT [facility] ([facility], ) Name Value Range Interpretation Code Description Data Supporting Source(s) Document(s ) Ferritin, 349 ng/mL Normal (applies to MEDGEN (St Serum non-numeric [facility] results) Medical, ) ID Date Data Source [id number] 03/22/2020 12:00:00 AM EDT [facility] ([facility], ) Name Value Range Interpretation Description Data Sup porting Code Source(s) Document(s ) Deprecated 5.4 mg/dL Above high normal MEDGEN (St Phosphorus [facility] [Mass/time] in Medical, ) 24 hour Urine ID Date Data Source [id number] 03/22/2020 12:00:00 AM EDT [facility] ([facility] Name Value Range Interpretation Code Description Data Lisa rce(s) Supporting Document(s ) RAGINI Normal (applies to MEDGEN (St Interpreta non-numeric results) [facility], tion:U PC) ID Date Data Source [id number] 03/22/2020 12:00:00 AM EDT [facility] ([facility] Name Value Range Interpretation Description Data Sup porting Code Source(s) Document(s ) Vitamin D, 30.6 Normal (applies to MEDGEN (St 25-Hydroxy ng/mL non-numeric [facility] results) Medical, ) ID Date Data Source [id number] 03/22/2020 12:00:00 AM EDT [facility] ([facility] Name Value Range Interpretation Description Data Sup porting Code Source(s) Document(s ) Free [place] 141.85 Above high normal MEDGEN (St Lt mg/L [facility], [facility]) Free [place] 110.44 Above high normal MEDGEN (St Lt mg/L [facility], [facility]) [place] 1.28 Normal (applies to MEDGEN (S t a Ratio,U non-numeric [facility] results) Medical, ) ID Date Data Source [id number] 03/22/2020 12:00:00 AM EDT [facility] ([facility] Name Value Range Interpretation Description Data Sup porting Code Source(s) Document(s ) Free [place] 41.1 mg/L Above high normal MEDGEN (St Lt Chains,S [facility]) Free Lambda 176.0 mg/L Above high normal [facility] (S t Lt Chains,S [facility]) [place] 0.23 Below low normal [facility] (St a Ratio,S [facility]) ID Date Data Source [id number] 03/22/2020 12:00:00 AM EDT [facility] ([facility] Name Value Range Interpretation Code Description Data Supporting Source(s) Document(s ) Creatinine 94.7 mg/dL Normal (applies to MEDGEN (S t , Urine non-numeric [facility] results) Medical, ) Protein/Cr 1072 mg/g Above high normal MEDGEN (St eat Ratio creat [facility], ) ID Date Data Source [id number] 03/22/2020 12:00:00 AM EDT MEDGEN ([facility]) Name Value Range Interpretation Description Data Sup porting Code Source(s) Document(s ) Immunofixation Normal (applies MEDGEN (S t Result, Serum to non-numeric [facility] results) [facility], ) Immunoglobulin G, 3867 Above high normal MEDG EN (St Qn, Serum mg/dL [facility]) Immunoglobulin A, 17 mg/dL Below low normal MEDGE N (St Qn, Serum [facility]) Immunoglobulin M, 8 mg/dL Below low normal MEDGE N (St Qn, Serum [facility]) ID Date Data Source [id number] 03/22/2020 12:00:00 AM EDT MEDGEN ([facility], ) Name Value Range Interpretation Description Data Sup porting Code Source(s) Document(s ) Iron 248 ug/dL Below low normal MEDGEN (St Bind.Cap.(TIBC [facility] ) [facility]) UIBC 172 ug/dL Normal (applies to MEDGEN (St non-numeric [facility] results) [facility]) Iron 76 ug/dL Normal (applies to MEDGEN (St [Mass/volume] non-numeric [facility] in Serum or results) [facility]) Plasma Iron 31 % Normal (applies to MEDGEN (St saturation non-numeric [facility] [Mass results) [facility]) Fraction] in Serum or Plasma ID Date Data Source [id number] 03/22/2020 12:00:00 AM EDT MEDGEN ([facility]) Name Value Range Interpretation Description Data Sup porting Code Source(s) Document(s ) Protein,Tot 101.5 Normal (applies to MEDGEN (S t al,Urine mg/dL non-numeric [facility] results) [facility]) Albumin, U 36.2 % Normal (applies to MEDGEN (St non-numeric [facility] results) [facility]) Alpha-1-Nadine 5.7 % Normal (applies to MEDGEN (S t bulin, U non-numeric [facility] results) [facility]) Alpha-2-Nadine 12.8 % Normal (applies to MEDGEN (S t bulin, U non-numeric [facility] results) Medical, PC) Beta 29.7 % Normal (applies to MEDGEN (St Globulin, U non-numeric [facility] results) [facility], PC) Gamma 15.6 % Normal (applies to MEDGEN (St Globulin, U non-numeric [facility] results) [facility], PC) M-Kevyn, % Comment: Normal (applies to [facility]GEN (St non-numeric [facility] results) Medical, PC) Please Normal (applies to MEDGEN (St note: non-numeric [facility] results) [facility], PC) PDF . Normal (applies to [facility]GEN (St non-numeric [facility] results) [facility], PC) ID Date Data Source [id number] 03/22/2020 12:00:00 AM EDT [facility] ([facility], ) Name Value Range Interpretation Description Data Sup porting Code Source(s) Document(s ) Microalbumin 4.0 g/dL Normal (applies MEDGEN (St [Mass/time] in to non-numeric [facility] Urine collected results) Medical, for unspecified PC) duration Inciz-2-Mnhxqiul 0.2 g/dL Normal (applies [facility]GEN (St to non-numeric [facility] results) Medical, PC) Noenp-8-Soejpdbe 0.8 g/dL Normal (applies [facility]GEN (St to non-numeric [facility] results) Medical, PC) Beta globulin 0.7 g/dL Normal (applies MEDGEN (St [Mass/volume] in to non-numeric [facility] Urine by results) Medical, Electrophoresis PC) Gamma globulin 3.5 g/dL Above high normal MEDGEN (St [Mass/volume] by [facility] Electrophoresis in Medical, Urine collected PC) for unspecified duration M-Kevyn 3.2 g/dL Above high normal [facility] ([facility], ) Globulin, Total 5.1 g/dL Above high normal [facility] ([facility], ) A/G Ratio 0.8 Normal (applies [facility] (St to non-numeric [facility] results) Medical, PC) Please note: Normal (applies [facility] (St to non-numeric [facility] results) Medical, PC) PDF . Normal (applies [facility] (St to non-numeric [facility] results) [facility], PC) ID Date Data Source [id number] 03/22/2020 12:00:00 AM EDT [facility] ([facility]) Name Value Range Interpretation Description Data Sup porting Code Source(s) Document(s ) Specific gravity 1.015 Normal (applies MEDGEN (St of Pericardial to non-numeric [facility] fluid by results) Medical, Refractometry PC) pH of Lower 5.0 Normal (applies MEDGEN (St respiratory to non-numeric [facility] specimen results) Medical, PC) Urine-Color Yellow Normal (applies [facility]GEN (St to non-numeric [facility] results) Medical, PC) Appearance of Clear Normal (applies [facility]GEN (St Abdomen to non-numeric [facility] results) Medical, PC) WBC Esterase Negative Normal (applies [facility]GEN (St to non-numeric [facility] results) Medical, PC) Protein Abnormal MEDGEN (St [Mass/volume] in (applies to [facility] Lower non-numeric Medical, respiratory results) PC) specimen Glucose Negative Normal (applies [facility]GEN (St [Mass/volume] in to non-numeric [facility] Urine collected results) Medical, for unspecified PC) duration Ketones Negative Normal (applies MEDGEN (St [Presence] in to non-numeric [facility] Blood by Tablet results) Medical, PC) Occult Blood Abnormal MEDGEN (St (applies to [facility] non-numeric Medical, results) PC) Bilirubin Negative Normal (applies [facility]GEN (St [Presence] in to non-numeric [facility] Peritoneal fluid results) Medical, PC) Urobilinogen,Mel 0.2 mg/dL Normal (applies [facility]GEN (St i-Qn to non-numeric [facility] results) Medical, PC) Nitrite, Urine Negative Normal (applies [facility]GEN (S t to non-numeric [facility] results) Medical, PC) Microscopic See below: Normal (applies [facility]GEN (St Examination to non-numeric [facility] results) Medical, PC) ID Date Data Source [id number] 03/22/2020 12:00:00 AM EDT [facility] ([facility] Name Value Range Interpretation Description Data Sup porting Code Source(s) Document(s ) WBC 0-5 Normal (applies [facility]GEN (St to non-numeric [facility] results) Medical, PC) RBC 3-10 Abnormal (applies MEDGEN (St to non-numeric [facility] results) Medical, PC) Epithelial 0-10 Normal (applies MEDGEN (St Cells (non to non-numeric [facility] renal) results) Medical, PC) Crystals Present Abnormal (applies MEDGEN (St [#/area] in to non-numeric [facility] Body fluid by results) Medical, PC) Light microscopy Crystal Type Calcium Normal (applies MEDGEN (St Oxalate to non-numeric [facility] results) Medical, PC) Mucus Threads Present Normal (applies [facility] (St to non-numeric [facility] results) Medical, PC) Bacteria Few Normal (applies MEDGEN (St [Presence] in to non-numeric [facility] Prostatic results) Medical, PC) fluid by Light microscopy ID Date Data Source [id number] 03/22/2020 12:00:00 AM EDT [facility] ([facility]) Name Value Range Interpretation Description Data Sup porting Code Source(s) Document(s ) Glucose 88 mg/dL Normal (applies MEDGEN (St [Mass/volume] in to non-numeric [facility] Urine collected for results) Medical, unspecified PC) duration Urea nitrogen 61 mg/dL Above high MEDGEN (St [Mass/volume] in normal [facility] Serum or Plasma Medical, PC) Creatinine 5.97 Above high MEDGEN (St [Interpretation] in mg/dL normal [facility] Urine Medical, PC) eGFR If NonAfricn 9 Below low normal MEDGE N (St Am mL/min/1 [facility] .73 Medical, PC) eGFR If Africn Am 10 Below low normal MEDGE N (St mL/min/1 [facility] .73 Medical, PC) BUN/Creatinine 10 Normal (applies MEDGEN (S t Ratio to non-numeric [facility] results) Medical, PC) Sodium 134 Normal (applies MEDGEN (St [Moles/volume] in mmol/L to non-numeric [facility] Serum or Plasma results) Medical, PC) Potassium 4.1 Normal (applies [facility]GEN (St [Mass/volume] in mmol/L to non-numeric [facility] Blood results) Medical, PC) Chloride 98 Normal (applies MEDGEN (St [Moles/volume] in mmol/L to non-numeric [facility] Serum or Plasma results) Medical, PC) Carbon dioxide, 20 Normal (applies MEDGEN ( St total mmol/L to non-numeric [facility] [Moles/volume] in results) Medical, Serum or Plasma PC) Calcium 12.0 Above high MEDGEN (St [Moles/volume] in mg/dL normal [facility] Urine collected for Medical, unspecified PC) duration Protein 9.1 g/dL Above high MEDGEN (St [Mass/volume] in normal [facility] Serum or Plasma [facility], ) Microalbumin 3.9 g/dL Normal (applies MEDGEN (St [Mass/time] in to non-numeric [facility] Urine collected for results) [facility], unspecified ) duration Globulin, Total 5.2 g/dL Above high MEDGEN (St normal [facility], ) A/G Ratio 0.8 Below low normal [facility]GEN ([facility], ) Bilirubin.total 0.4 Normal (applies MEDGEN ( St [Mass/volume] in mg/dL to non-numeric [facility] Serum or Plasma results) [facility], ) Alkaline 63 IU/L Normal (applies MEDGEN (St phosphatase to non-numeric [facility]'s [Enzymatic results) Medical, activity/volume] in ) Serum, Plasma or Blood Aspartate 43 IU/L Above high MEDGEN (St aminotransferase normal [facility]'s [Enzymatic Medical, activity/volume] in ) Serum or Plasma Alanine 43 IU/L Normal (applies MEDGEN (St aminotransferase to non-numeric [facility] [Enzymatic results) Medical, activity/volume] in ) Serum or Plasma ID Date Data Source [id number] 03/22/2020 12:00:00 AM EDT [facility] ([facility], ) Name Value Range Interpretation Description Data Sup porting Code Source(s) Document(s ) Leukocytes 11.7 Above high normal MEDGEN (St [#/volume] in x10E3/uL [facility] Blood by [facility], ) Automated count Erythrocytes 2.47 Below lower panic MEDGEN (S t [#/volume] in x10E6/uL limits [facility] Blood by [facility], ) Automated count Hemoglobin 8.2 g/dL Below low normal MEDGEN (St [Mass/volume] in [facility] Blood [facility], ) Hematocrit 23.3 % Below low normal MEDGEN (St [Volume [facility]'s Fraction] of [facility], ) Blood by Automated count MCV 94 fL Normal (applies MEDGEN (St to non-numeric [facility] results) [facility], ) MCH 33.2 pg Above high normal [facility] ([facility], ) MCHC 35.2 Normal (applies MEDGEN (St g/dL to non-numeric [facility] results) [facility]) RDW 19.0 % Above high normal [facility] ([facility], ) Platelets 198 Normal (applies MEDGEN (St [#/area] in x10E3/uL to non-numeric [facility] Blood by results) [facility]) Microscopy high power field Neutrophils [#] 54 % Normal (applies MEDGEN ( St in Body fluid by to non-numeric [facility] Manual count results) [facility]) Lymphs 13 % Normal (applies MEDGEN (St to non-numeric [facility] results) [facility]) Monocytes 16 % Normal (applies MEDGEN (St [#/volume] in to non-numeric [facility] Cord blood results) [facility]) Eos 11 % Normal (applies MEDGEN (St to non-numeric [facility] results) [facility]) Basos 1 % Normal (applies MEDGEN (St to non-numeric [facility] results) [facility]) Neutrophils 6.4 Normal (applies MEDGEN (St (Absolute) x10E3/uL to non-numeric [facility] results) [facility]) Monocytes(Absolu 1.9 Above high normal MEDGE N (St te) x10E3/uL [facility]) Lymphs 1.5 Normal (applies MEDGEN (St (Absolute) x10E3/uL to non-numeric [facility] results) [facility]) Eos (Absolute) 1.3 Above high normal MEDGEN (St x10E3/uL [facility], ) Baso (Absolute) 0.1 Normal (applies MEDGEN ( St x10E3/uL to non-numeric [facility] results) [facility]) Immature 5 % Normal (applies MEDGEN (St Granulocytes to non-numeric [facility] results) [facility]) Immature Grans 0.6 Above high normal MEDGEN (St (Abs) x10E3/uL [facility]) NRBC 4 % Above high normal [facility] ([facility], ) ID Date Data Source [id number] 03/22/2020 12:00:00 AM EDT [facility] ([facility], ) Name Value Range Interpretation Code Description Data Lisa rce(s) Supporting Document(s ) ID Date Data Source [id number] 03/22/2020 12:00:00 AM EDT [facility] ([facility], ) Name Value Range Interpretation Code Description Data Supporting Source(s) Document(s ) PTH, Intact 10 pg/mL Below low normal [facility] ([facility], ) ID Date Data Source [id number] 03/22/2020 12:00:00 AM EDT MEDGEN (St [facility], ) Name Value Range Interpretation Code Description Data Supporting Source(s) Document(s ) Ferritin, 349 ng/mL Normal (applies to MEDGEN (St Serum non-numeric [facility] results) [facility], ) ID Date Data Source [id number] 03/22/2020 12:00:00 AM EDT [facility] ([facility], ) Name Value Range Interpretation Description Data Sup porting Code Source(s) Document(s ) Deprecated 5.4 mg/dL Above high normal MEDGEN (St Phosphorus [facility]'s [Mass/time] in [facility], ) 24 hour Urine ID Date Data Source [id number] 03/22/2020 12:00:00 AM EDT [facility] ([facility], ) Name Value Range Interpretation Code Description Data Lisa rce(s) Supporting Document(s ) ID Date Data Source [id number] 03/22/2020 12:00:00 AM EDT [facility] ([facility], ) Name Value Range Interpretation Description Data Sup porting Code Source(s) Document(s ) Vitamin D, 30.6 Normal (applies to MEDGEN (St 25-Hydroxy ng/mL non-numeric [facility] results) [facility], ) ID Date Data Source [id number] 03/22/2020 12:00:00 AM EDT [facility] ([facility], ) Name Value Range Interpretation Description Data Sup porting Code Source(s) Document(s ) Free [place] 141.85 Above high normal MEDGEN (St Lt mg/L [facility], ) Free [place]ambda 110.44 Above high normal MEDGEN (St Lt mg/L [facility] Ch[facility],Ur [facility], ) [place] 1.28 Normal (applies to MEDGEN (S t a Ratio,U non-numeric [facility] results) [facility], ) ID Date Data Source [id number] 03/22/2020 12:00:00 AM EDT [facility] Name Value Range Interpretation Description Data Sup porting Code Source(s) Document(s ) Free [place] 176.0 mg/L Above high normal MEDGEN (S t Lt Chains,S [facility], PC) Free [place] 41.1 mg/L Above high normal MEDGEN (St Lt Chains,S [facility], PC) [place] 0.23 Below low normal MEDGEN (St a Ratio,S [facility], ) ID Date Data Source [id number] 03/22/2020 12:00:00 AM EDT [facility] ([facility], ) Name Value Range Interpretation Code Description Data Supporting Source(s) Document(s ) Creatinine 94.7 mg/dL Normal (applies to MEDGEN (S t , Urine non-numeric [facility] results) Medical, ) Protein/Cr 1072 mg/g Above high normal MEDGEN (St eat Ratio creat [facility], ) ID Date Data Source [id number] 03/22/2020 12:00:00 AM EDT [facility] Name Value Range Interpretation Code Description Data Lisa rce(s) Supporting Document(s ) ID Date Data Source [id number] 03/22/2020 12:00:00 AM EDT [facility] ([facility] Name Value Range Interpretation Code Description Data Supporting Source(s) Document(s ) PTH, Intact 10 pg/mL Below low normal [facility] ([facility], ) ID Date Data Source [id number] 03/22/2020 12:00:00 AM EDT [facility] Name Value Range Interpretation Code Description Data Supporting Source(s) Document(s ) Ferritin, 349 ng/mL Normal (applies to MEDGEN (St Serum non-numeric [facility] results) Medical, ) ID Date Data Source [id number] 03/22/2020 12:00:00 AM EDT [facility] ([facility]) Name Value Range Interpretation Description Data Sup porting Code Source(s) Document(s ) Deprecated 5.4 mg/dL Above high normal [facility]GEN (St Phosphorus [facility] [Mass/time] in Medical, ) 24 hour Urine ID Date Data Source [id number] 03/22/2020 12:00:00 AM EDT [facility] ([facility], ) Name Value Range Interpretation Code Description Data Lisa rce(s) Supporting Document(s ) ID Date Data Source [id number] 03/22/2020 12:00:00 AM EDT [facility] ([facility], ) Name Value Range Interpretation Description Data Sup porting Code Source(s) Document(s ) Vitamin D, 30.6 Normal (applies to MEDGEN (St 25-Hydroxy ng/mL non-numeric [facility] results) [facility], ) ID Date Data Source [id number] 03/22/2020 12:00:00 AM EDT [facility] ([facility], ) Name Value Range Interpretation Description Data Sup porting Code Source(s) Document(s ) Free [place] 141.85 Above high normal MEDGEN (St Lt mg/L [facility], ) Free [place] 110.44 Above high normal MEDGEN (St Lt mg/L [facility] Ch[facility],Ur [facility], ) [place] 1.28 Normal (applies to MEDGEN (S t a Ratio,U non-numeric [facility] results) [facility], ) ID Date Data Source [id number] 03/22/2020 12:00:00 AM EDT [facility] ([facility], ) Name Value Range Interpretation Description Data Sup porting Code Source(s) Document(s ) Free [place] 41.1 mg/L Above high normal MEDGEN (St Lt Chains,S [facility]'s [facility], ) [place] 0.23 Below low normal MEDGEN (St a Ratio,S [facility], ) Free [place] 176.0 mg/L Above high normal MEDGEN (S t Lt Chains,S [facility], ) ID Date Data Source [id number] 03/22/2020 12:00:00 AM EDT [facility] ([facility], ) Name Value Range Interpretation Code Description Data Supporting Source(s) Document(s ) Creatinine 94.7 mg/dL Normal (applies to MEDGEN (S t , Urine non-numeric [facility] results) [facility], ) Protein/Cr 1072 mg/g Above high normal MEDGEN (St eat Ratio creat [facility], ) ID Date Data Source [id number] 03/22/2020 12:00:00 AM EDT [facility] ([facility], ) Name Value Range Interpretation Description Data Sup porting Code Source(s) Document(s ) Immunoglobulin G, 3867 Above high normal MEDG EN (St Qn, Serum mg/dL [facility], ) Immunoglobulin A, 17 mg/dL Below low normal MEDGE N (St Qn, Serum [facility]) Immunoglobulin M, 8 mg/dL Below low normal MEDGE N (St Qn, Serum [facility], ) ID Date Data Source [id number] 03/22/2020 12:00:00 AM EDT MEDGEN ([facility], ) Name Value Range Interpretation Description Data Sup porting Code Source(s) Document(s ) Iron 248 ug/dL Below low normal MEDGEN (St Bind.Cap.(TIBC [facility] ) [facility], ) Iron 76 ug/dL Normal (applies to MEDGEN (St [Mass/volume] non-numeric [facility] in Serum or results) [facility], ) Plasma UIBC 172 ug/dL Normal (applies to MEDGEN (St non-numeric [facility] results) [facility], ) Iron 31 % Normal (applies to MEDGEN (St saturation non-numeric [facility]'s [Mass results) [facility], ) Fraction] in Serum or Plasma ID Date Data Source [id number] 03/22/2020 12:00:00 AM EDT [facility] ([facility], ) Name Value Range Interpretation Code Description Data Supporting Source(s) Document(s ) Protein,To 101.5 Normal (applies to MEDGEN (St ruth,Urine mg/dL non-numeric [facility] results) [facility], ) Albumin, U 36.2 % Normal (applies to MEDGEN (St non-numeric Juan C's results) [facility], ) Alpha-1-Gl 5.7 % Normal (applies to MEDGEN (St obulin, U non-numeric Juan C's results) [facility]) Alpha-2-Gl 12.8 % Normal (applies to MEDGEN (St obulin, U non-numeric Juan C's results) [facility]) Gamma 15.6 % Normal (applies to MEDGEN (St Globulin, non-numeric Juan C's U results) [facility], ) Beta 29.7 % Normal (applies to MEDGEN (St Globulin, non-numeric Juan C's U results) Medical, ) M-Kevyn, % Comment: Normal (applies to MEDGEN (St non-numeric Juan C's results) Medical, ) PDF . Normal (applies to MEDGEN (St non-numeric Juan C's results) Medical, ) ID Date Data Source [id number] 03/22/2020 12:00:00 AM EDT [facility] ([facility], ) Name Value Range Interpretation Description Data Sup porting Code Source(s) Document(s ) Microalbumin 4.0 g/dL Normal (applies MEDGEN (St [Mass/time] in to non-numeric Juan C's Urine collected results) Medical, for unspecified PC) duration Bdhag-8-Tksskvkr 0.8 g/dL Normal (applies MEDGEN (St to non-numeric Juan C's results) Medical, ) Khelg-2-Hhmfeufh 0.2 g/dL Normal (applies MEDGEN (St to non-numeric Juan C's results) Medical, ) Beta globulin 0.7 g/dL Normal (applies MEDGEN (St [Mass/volume] in to non-numeric Juan C's Urine by results) Medical, Electrophoresis PC) Gamma globulin 3.5 g/dL Above high normal MEDGEN (St [Mass/volume] by Juan C's Electrophoresis in Medical, Urine collected PC) for unspecified duration M-Kevyn 3.2 g/dL Above high normal [facility] ([facility], ) A/G Ratio 0.8 Normal (applies MEDGEN (St to non-numeric Juan C's results) Medical, ) Globulin, Total 5.1 g/dL Above high normal MED[facility] ([facility], ) PDF . Normal (applies MEDGEN (St to non-numeric Juan C's results) Medical, ) ID Date Data Source [id number] 03/22/2020 12:00:00 AM EDT [facility] ([facility], ) Name Value Range Interpretation Description Data Sup porting Code Source(s) Document(s ) Specific gravity 1.015 Normal (applies MEDGEN (St of Pericardial to non-numeric Juan C's fluid by results) Medical, Refractometry ) pH of Lower 5.0 Normal (applies MEDGEN (St respiratory to non-numeric Juan C's specimen results) Medical, ) Appearance of Clear Normal (applies MEDGEN (St Abdomen to non-numeric Juan C's results) Medical, PC) Urine-Color Yellow Normal (applies MEDGEN (St to non-numeric Juan C's results) Medical, PC) Protein Abnormal MEDGEN (St [Mass/volume] in (applies to Juan C's Lower non-numeric Medical, respiratory results) PC) specimen WBC Esterase Negative Normal (applies MEDGEN (St to non-numeric Juan C's results) Medical, PC) Glucose Negative Normal (applies MEDGEN (St [Mass/volume] in to non-numeric Juan C's Urine collected results) [facility], for unspecified PC) duration Occult Blood Abnormal MEDGEN (St (applies to Juan C's non-numeric Medical, results) PC) Ketones Negative Normal (applies MEDGEN (St [Presence] in to non-numeric Juan C's Blood by Tablet results) Medical, ) Bilirubin Negative Normal (applies MEDGEN (St [Presence] in to non-numeric Juan C's Peritoneal fluid results) Medical, ) Urobilinogen,Mel 0.2 mg/dL Normal (applies MEDGEN (St i-Qn to non-numeric Juan C's results) Medical, PC) Nitrite, Urine Negative Normal (applies MEDGEN (S t to non-numeric Juan C's results) Medical, PC) Microscopic See below: Normal (applies MEDGEN (St Examination to non-numeric Juan C's results) Medical, ) ID Date Data Source [id number] 03/22/2020 12:00:00 AM EDT [facility] ([facility], ) Name Value Range Interpretation Description Data Sup porting Code Source(s) Document(s ) WBC 0-5 Normal (applies MEDGEN (St to non-numeric Juan C's results) Medical, PC) RBC 3-10 Abnormal (applies MEDGEN (St to non-numeric Juan C's results) Medical, PC) Epithelial 0-10 Normal (applies MEDGEN (St Cells (non to non-numeric Juan C's renal) results) Medical, ) Crystals Present Abnormal (applies MEDGEN (St [#/area] in to non-numeric Juan C's Body fluid by results) Medical, ) Light microscopy Mucus Threads Present Normal (applies MEDGEN (St to non-numeric Juan C's results) Medical, ) Crystal Type Calcium Normal (applies MEDGEN (St Oxalate to non-numeric Juan C's results) Medical, ) Bacteria Few Normal (applies MEDGEN (St [Presence] in to non-numeric Juan C's Prostatic results) Medical, ) fluid by Light microscopy ID Date Data Source [id number] 03/22/2020 12:00:00 AM EDT [facility] ([facility], ) Name Value Range Interpretation Description Data Sup porting Code Source(s) Document(s ) Glucose 88 mg/dL Normal (applies MEDGEN (St [Mass/volume] in to non-numeric Juan C's Urine collected for results) Medical, unspecified PC) duration Urea nitrogen 61 mg/dL Above high MEDGEN (St [Mass/volume] in normal Juan C's Serum or Plasma Medical, ) Creatinine 5.97 Above high MEDGEN (St [Interpretation] in mg/dL normal Juan C's Urine Medical, ) eGFR If NonAfricn 9 Below low normal MEDGE N (St Am mL/min/1 Juan C's .73 Medical, ) BUN/Creatinine 10 Normal (applies MEDGEN (S t Ratio to non-numeric Juan C's results) Medical, ) eGFR If Africn Am 10 Below low normal MEDGE N (St mL/min/1 Juan C's .73 [facility], ) Sodium 134 Normal (applies MEDGEN (St [Moles/volume] in mmol/L to non-numeric Juan C's Serum or Plasma results) Medical, ) Chloride 98 Normal (applies MEDGEN (St [Moles/volume] in mmol/L to non-numeric Juan C's Serum or Plasma results) Medical, ) Potassium 4.1 Normal (applies MEDGEN (St [Mass/volume] in mmol/L to non-numeric Juan C's Blood results) Medical, ) Carbon dioxide, 20 Normal (applies MEDGEN ( St total mmol/L to non-numeric Juan C's [Moles/volume] in results) Medical, Serum or Plasma PC) Calcium 12.0 Above high MEDGEN (St [Moles/volume] in mg/dL normal Juan C's Urine collected for Medical, unspecified PC) duration Protein 9.1 g/dL Above high MEDGEN (St [Mass/volume] in normal Juan C's Serum or Plasma Medical, ) Microalbumin 3.9 g/dL Normal (applies MEDGEN (St [Mass/time] in to non-numeric Juan C's Urine collected for results) [facility], unspecified ) duration Globulin, Total 5.2 g/dL Above high MEDGEN (St normal [facility], ) A/G Ratio 0.8 Below low normal MEDGEN ([facility], ) Bilirubin.total 0.4 Normal (applies MEDGEN ( St [Mass/volume] in mg/dL to non-numeric Juan C's Serum or Plasma results) [facility], ) Alkaline 63 IU/L Normal (applies MEDGEN (St phosphatase to non-numeric Juan C's [Enzymatic results) Medical, activity/volume] in ) Serum, Plasma or Blood Aspartate 43 IU/L Above high MEDGEN (St aminotransferase normal Juan C's [Enzymatic Medical, activity/volume] in ) Serum or Plasma Alanine 43 IU/L Normal (applies MEDGEN (St aminotransferase to non-numeric Juan C's [Enzymatic results) Medical, activity/volume] in ) Serum or Plasma ID Date Data Source [id number] 03/22/2020 12:00:00 AM EDT [facility] ([facility], ) Name Value Range Interpretation Description Data Sup porting Code Source(s) Document(s ) Leukocytes 11.7 Above high normal MEDGEN (St [#/volume] in x10E3/uL Juan C's Blood by [facility], ) Automated count Erythrocytes 2.47 Below lower panic MEDGEN (S t [#/volume] in x10E6/uL limits Juan C's Blood by [facility], ) Automated count Hemoglobin 8.2 g/dL Below low normal MEDGEN (St [Mass/volume] in Juan C's Blood [facility], ) MCV 94 fL Normal (applies MEDGEN (St to non-numeric Juan C's results) [facility], ) Hematocrit 23.3 % Below low normal MEDGEN (St [Volume Juan C's Fraction] of [facility], ) Blood by Automated count MCH 33.2 pg Above high normal MEDGEN ([facility], ) MCHC 35.2 Normal (applies MEDGEN (St g/dL to non-numeric Juan C's results) [facility], ) RDW 19.0 % Above high normal [facility] ([facility], ) Neutrophils [#] 54 % Normal (applies MEDGEN ( St in Body fluid by to non-numeric Juan C's Manual count results) [facility], ) Platelets 198 Normal (applies MEDGEN (St [#/area] in x10E3/uL to non-numeric Juan C's Blood by results) [facility]) Microscopy high power field Lymphs 13 % Normal (applies MEDGEN (St to non-numeric Juan C's results) [facility]) Eos 11 % Normal (applies MEDGEN (St to non-numeric Juan C's results) [facility]) Monocytes 16 % Normal (applies MEDGEN (St [#/volume] in to non-numeric Juan C's Cord blood results) [facility]) Basos 1 % Normal (applies MEDGEN (St to non-numeric Juan C's results) [facility]) Neutrophils 6.4 Normal (applies MEDGEN (St (Absolute) x10E3/uL to non-numeric Juan C's results) [facility]) Lymphs 1.5 Normal (applies MEDGEN (St (Absolute) x10E3/uL to non-numeric Juan C's results) [facility]) Monocytes(Absolu 1.9 Above high normal MEDGE N (St te) x10E3/uL Juan C's [facility], ) Baso (Absolute) 0.1 Normal (applies MEDGEN ( St x10E3/uL to non-numeric Juan C's results) [facility]) Eos (Absolute) 1.3 Above high normal [facility]GEN (St x10E3/uL Juan C's [facility], ) Immature 5 % Normal (applies MEDGEN (St Granulocytes to non-numeric Juan C's results) [facility]) Immature Grans 0.6 Above high normal MEDGEN (St (Abs) x10E3/uL [facility]'s [facility]) NRBC 4 % Above high normal [facility] ([facility], ) ID Date Data Source [id number] 03/22/2020 12:00:00 AM EDT [facility] ([facility], ) Name Value Range Interpretation Code Description Data Lisa rce(s) Supporting Document(s ) ID Date Data Source [id number] 03/22/2020 12:00:00 AM EDT [facility] ([facility], ) Name Value Range Interpretation Code Description Data Supporting Source(s) Document(s ) PTH, Intact 10 pg/mL Below low normal [facility] ([facility], ) ID Date Data Source [id number] 03/22/2020 12:00:00 AM EDT [facility] ([facility]) Name Value Range Interpretation Code Description Data Supporting Source(s) Document(s ) Ferritin, 349 ng/mL Normal (applies to MEDGEN (St Serum non-numeric Juan C's results) [facility], ) ID Date Data Source [id number] 03/22/2020 12:00:00 AM EDT [facility] ([facility], ) Name Value Range Interpretation Description Data Sup porting Code Source(s) Document(s ) Deprecated 5.4 mg/dL Above high normal MEDGEN (St Phosphorus Juan C's [Mass/time] in Medical, ) 24 hour Urine ID Date Data Source [id number] 03/22/2020 12:00:00 AM EDT [facility] ([facility], ) Name Value Range Interpretation Code Description Data Lisa rce(s) Supporting Document(s ) ID Date Data Source [id number] 03/22/2020 12:00:00 AM EDT [facility] ([facility], ) Name Value Range Interpretation Description Data Sup porting Code Source(s) Document(s ) Vitamin D, 30.6 Normal (applies to MEDGEN (St 25-Hydroxy ng/mL non-numeric Juan C's results) [facility], ) ID Date Data Source [id number] 03/22/2020 12:00:00 AM EDT [facility] ([facility], ) Name Value Range Interpretation Description Data Sup porting Code Source(s) Document(s ) Free [place] 141.85 Above high normal MEDGEN (St Lt mg/L Juan C's Chains,Ur Medical, ) Free [place] 110.44 Above high normal MEDGEN (St Lt mg/L Juna C's Chains,Ur [facility], ) [place] 1.28 Normal (applies to MEDGEN (S t a Ratio,U non-numeric Juan C's results) [facility], ) ID Date Data Source [id number] 03/22/2020 12:00:00 AM EDT [facility] ([facility], ) Name Value Range Interpretation Description Data Sup porting Code Source(s) Document(s ) Free [place] 41.1 mg/L Above high normal MEDGEN (St Lt Chains,S Juan C's [facility], ) [place] 0.23 Below low normal MEDGEN (St a Ratio,S [facility], ) Free Lambda 176.0 mg/L Above high normal MEDGEN (S t Lt Chains,S [facility]) ID Date Data Source [id number] 03/22/2020 12:00:00 AM EDT MEDGEN ([facility], ) Name Value Range Interpretation Code Description Data Supporting Source(s) Document(s ) Creatinine 94.7 mg/dL Normal (applies to MEDGEN (S t , Urine non-numeric Juan C's results) [facility], ) Protein/Cr 1072 mg/g Above high normal MEDGEN (St eat Ratio creat [facility], ) ID Date Data Source [id number] 03/22/2020 12:00:00 AM EDT MEDGEN ([facility], ) Name Value Range Interpretation Description Data Sup porting Code Source(s) Document(s ) Immunoglobulin G, 3867 Above high normal MEDG EN (St Qn, Serum mg/dL [facility]) Immunoglobulin A, 17 mg/dL Below low normal MEDGE N (St Qn, Serum [facility]) Immunoglobulin M, 8 mg/dL Below low normal MEDGE N (St Qn, Serum [facility]) ID Date Data Source [id number] 03/22/2020 12:00:00 AM EDT MEDGEN ([facility], ) Name Value Range Interpretation Description Data Sup porting Code Source(s) Document(s ) Iron 248 ug/dL Below low normal MEDGEN (St Bind.Cap.(TIBC [facility]'s ) [facility], ) UIBC 172 ug/dL Normal (applies to MEDGEN (St non-numeric Juan C's results) [facility]) Iron 76 ug/dL Normal (applies to MEDGEN (St [Mass/volume] non-numeric Juan C's in Serum or results) [facility], ) Plasma Iron 31 % Normal (applies to MEDGEN (St saturation non-numeric Juan C's [Mass results) [facility]) Fraction] in Serum or Plasma ID Date Data Source [id number] 03/22/2020 12:00:00 AM EDT MEDGEN ([facility], ) Name Value Range Interpretation Code Description Data Supporting Source(s) Document(s ) Protein,To 101.5 Normal (applies to MEDGEN (St ruth,Urine mg/dL non-numeric Juan C's results) [facility]) Albumin, U 36.2 % Normal (applies to MEDGEN (St non-numeric Juan C's results) [facility]) Alpha-1-Gl 5.7 % Normal (applies to MEDGEN (St obulin, U non-numeric Juan C's results) [facility]) Alpha-2-Gl 12.8 % Normal (applies to MEDGEN (St obulin, U non-numeric Juan C's results) [facility]) Gamma 15.6 % Normal (applies to MEDGEN (St Globulin, non-numeric Juan C's U results) [facility]) Beta 29.7 % Normal (applies to MEDGEN (St Globulin, non-numeric Juan C's U results) [facility]) PDF . Normal (applies to MEDGEN (St non-numeric Juan C's results) [facility]) M-Kevyn, % Comment: Normal (applies to MEDGEN (St non-numeric Juan C's results) [facility]) ID Date Data Source [id number] 03/22/2020 12:00:00 AM EDT [facility] ([facility]) Name Value Range Interpretation Description Data Sup porting Code Source(s) Document(s ) Immunoglobulin G, 3867 Above high normal MEDG EN (St Qn, Serum mg/dL [facility]) Immunoglobulin A, 17 mg/dL Below low normal MEDGE N (St Qn, Serum [facility]'s [facility]) Immunoglobulin M, 8 mg/dL Below low normal MEDGE N (St Qn, Serum [facility]) ID Date Data Source [id number] 03/22/2020 12:00:00 AM EDT [facility] ([facility]) Name Value Range Interpretation Description Data Sup porting Code Source(s) Document(s ) Iron 248 ug/dL Below low normal MEDGEN (St Bind.Cap.(TIBC Juan C's ) [facility]) UIBC 172 ug/dL Normal (applies to MEDGEN (St non-numeric Juan C's results) [facility]) Iron 76 ug/dL Normal (applies to MEDGEN (St [Mass/volume] non-numeric Juan C's in Serum or results) [facility]) Plasma Iron 31 % Normal (applies to MEDGEN (St saturation non-numeric Juan C's [Mass results) Medical, ) Fraction] in Serum or Plasma ID Date Data Source [id number] 03/22/2020 12:00:00 AM EDT [facility] ([facility], ) Name Value Range Interpretation Code Description Data Supporting Source(s) Document(s ) Protein,To 101.5 Normal (applies to MEDGEN (St ruth,Urine mg/dL non-numeric Juan C's results) Medical, ) Albumin, U 36.2 % Normal (applies to MEDGEN (St non-numeric Juan C's results) Medical, ) Alpha-1-Gl 5.7 % Normal (applies to MEDGEN (St obulin, U non-numeric Juan C's results) Medical, ) Alpha-2-Gl 12.8 % Normal (applies to MEDGEN (St obulin, U non-numeric Juan C's results) Medical, ) Beta 29.7 % Normal (applies to MEDGEN (St Globulin, non-numeric Juan C's U results) Medical, ) Gamma 15.6 % Normal (applies to MEDGEN (St Globulin, non-numeric Juan C's U results) Medical, ) M-Kevyn, % Comment: Normal (applies to MEDGEN (St non-numeric Juan C's results) Medical, ) PDF . Normal (applies to MEDGEN (St non-numeric Juan C's results) [facility], ) ID Date Data Source [id number] 03/22/2020 12:00:00 AM EDT [facility] ([facility], ) Name Value Range Interpretation Description Data Sup porting Code Source(s) Document(s ) Microalbumin 4.0 g/dL Normal (applies MEDGEN (St [Mass/time] in to non-numeric Juan C's Urine collected results) Medical, for unspecified PC) duration Aohhq-7-Kxlykwaw 0.8 g/dL Normal (applies MEDGEN (St to non-numeric Juan C's results) Medical, ) Mmvbt-1-Tpozaotx 0.2 g/dL Normal (applies MEDGEN (St to non-numeric Juan C's results) Medical, ) Gamma globulin 3.5 g/dL Above high normal MEDGEN (St [Mass/volume] by Juan C's Electrophoresis in Medical, Urine collected PC) for unspecified duration Beta globulin 0.7 g/dL Normal (applies MEDGEN (St [Mass/volume] in to non-numeric Juan C's Urine by results) Medical, Electrophoresis PC) M-Kevyn 3.2 g/dL Above high normal [facility]GEN ([facility], PC) Globulin, Total 5.1 g/dL Above high normal [facility]GEN ([facility], ) A/G Ratio 0.8 Normal (applies MEDGEN (St to non-numeric Juan C's results) Medical, PC) PDF . Normal (applies MEDGEN (St to non-numeric Juan C's results) Medical, PC) ID Date Data Source [id number] 03/22/2020 12:00:00 AM EDT MEDGEN (St [facility], ) Name Value Range Interpretation Description Data Sup porting Code Source(s) Document(s ) Specific gravity 1.015 Normal (applies MEDGEN (St of Pericardial to non-numeric Juan C's fluid by results) Medical, Refractometry PC) pH of Lower 5.0 Normal (applies MEDGEN (St respiratory to non-numeric Juan C's specimen results) Medical, PC) Urine-Color Yellow Normal (applies MEDGEN (St to non-numeric Juna C's results) Medical, PC) Appearance of Clear Normal (applies MEDGEN (St Abdomen to non-numeric Juan C's results) Medical, PC) WBC Esterase Negative Normal (applies MEDGEN (St to non-numeric Juan C's results) Medical, PC) Protein Abnormal MEDGEN (St [Mass/volume] in (applies to Juan C's Lower non-numeric Medical, respiratory results) PC) specimen Glucose Negative Normal (applies MEDGEN (St [Mass/volume] in to non-numeric Juan C's Urine collected results) Medical, for unspecified PC) duration Ketones Negative Normal (applies MEDGEN (St [Presence] in to non-numeric Juan C's Blood by Tablet results) Medical, PC) Occult Blood Abnormal MEDGEN (St (applies to Juan C's non-numeric Medical, results) PC) Bilirubin Negative Normal (applies MEDGEN (St [Presence] in to non-numeric Juan C's Peritoneal fluid results) Medical, PC) Urobilinogen,Mel 0.2 mg/dL Normal (applies MEDGEN (St i-Qn to non-numeric Juan C's results) Medical, PC) Nitrite, Urine Negative Normal (applies MEDGEN (S t to non-numeric Juan C's results) Medical, PC) Microscopic See below: Normal (applies MEDGEN (St Examination to non-numeric Juan C's results) Medical, ) ID Date Data Source [id number] 03/22/2020 12:00:00 AM EDT [facility] ([facility], ) Name Value Range Interpretation Description Data Sup porting Code Source(s) Document(s ) WBC 0-5 Normal (applies MEDGEN (St to non-numeric Juan C's results) Medical, PC) RBC 3-10 Abnormal (applies MEDGEN (St to non-numeric Juan C's results) Medical, PC) Epithelial 0-10 Normal (applies MEDGEN (St Cells (non to non-numeric Juan C's renal) results) Medical, ) Crystal Type Calcium Normal (applies MEDGEN (St Oxalate to non-numeric Juan C's results) Medical, PC) Crystals Present Abnormal (applies MEDGEN (St [#/area] in to non-numeric Juan C's Body fluid by results) Medical, ) Light microscopy Mucus Threads Present Normal (applies MEDGEN (St to non-numeric Juan C's results) Medical, ) Bacteria Few Normal (applies MEDGEN (St [Presence] in to non-numeric Juan C's Prostatic results) Medical, ) fluid by Light microscopy ID Date Data Source [id number] 03/22/2020 12:00:00 AM EDT [facility] ([facility], ) Name Value Range Interpretation Description Data Sup porting Code Source(s) Document(s ) Glucose 88 mg/dL Normal (applies MEDGEN (St [Mass/volume] in to non-numeric Juan C's Urine collected for results) Medical, unspecified PC) duration Urea nitrogen 61 mg/dL Above high MEDGEN (St [Mass/volume] in normal Juna C's Serum or Plasma Medical, ) Creatinine 5.97 Above high MEDGEN (St [Interpretation] in mg/dL normal Juan C's Urine Medical, ) eGFR If NonAfricn 9 Below low normal MEDGE N (St Am mL/min/1 Juan C's .73 Medical, PC) eGFR If Africn Am 10 Below low normal MEDGE N (St mL/min/1 Juan C's .73 Medical, PC) BUN/Creatinine 10 Normal (applies MEDGEN (S t Ratio to non-numeric Juan C's results) Medical, ) Sodium 134 Normal (applies MEDGEN (St [Moles/volume] in mmol/L to non-numeric Juan C's Serum or Plasma results) Medical, ) Potassium 4.1 Normal (applies MEDGEN (St [Mass/volume] in mmol/L to non-numeric Juan C's Blood results) Medical, ) Chloride 98 Normal (applies MEDGEN (St [Moles/volume] in mmol/L to non-numeric Juan C's Serum or Plasma results) Medical, ) Carbon dioxide, 20 Normal (applies MEDGEN ( St total mmol/L to non-numeric Juan C's [Moles/volume] in results) Medical, Serum or Plasma PC) Calcium 12.0 Above high MEDGEN (St [Moles/volume] in mg/dL normal Juan C's Urine collected for Medical, unspecified PC) duration Protein 9.1 g/dL Above high MEDGEN (St [Mass/volume] in normal Juan C's Serum or Plasma Medical, ) Microalbumin 3.9 g/dL Normal (applies MEDGEN (St [Mass/time] in to non-numeric Juan C's Urine collected for results) Medical, unspecified PC) duration Globulin, Total 5.2 g/dL Above high MEDGEN (St normal [facility], ) A/G Ratio 0.8 Below low normal MEDGEN ([facility], ) Bilirubin.total 0.4 Normal (applies MEDGEN ( St [Mass/volume] in mg/dL to non-numeric Juan C's Serum or Plasma results) Medical, ) Alkaline 63 IU/L Normal (applies MEDGEN (St phosphatase to non-numeric Juan C's [Enzymatic results) Medical, activity/volume] in PC) Serum, Plasma or Blood Aspartate 43 IU/L Above high MEDGEN (St aminotransferase normal Juan C's [Enzymatic Medical, activity/volume] in PC) Serum or Plasma Alanine 43 IU/L Normal (applies MEDGEN (St aminotransferase to non-numeric Juan C's [Enzymatic results) Medical, activity/volume] in PC) Serum or Plasma ID Date Data Source [id number] 03/22/2020 12:00:00 AM EDT [facility] ([facility], ) Name Value Range Interpretation Description Data Sup porting Code Source(s) Document(s ) Leukocytes 11.7 Above high normal MEDGEN (St [#/volume] in x10E3/uL Juan C's Blood by Medical, ) Automated count Erythrocytes 2.47 Below lower panic MEDGEN (S t [#/volume] in x10E6/uL limits Juan C's Blood by [facility]) Automated count Hemoglobin 8.2 g/dL Below low normal MEDGEN (St [Mass/volume] in Juan C's Blood [facility], ) Hematocrit 23.3 % Below low normal MEDGEN (St [Volume Juan C's Fraction] of [facility], ) Blood by Automated count MCV 94 fL Normal (applies MEDGEN (St to non-numeric Juan C's results) [facility]) MCH 33.2 pg Above high normal MEDGEN ([facility], ) MCHC 35.2 Normal (applies MEDGEN (St g/dL to non-numeric Juan C's results) [facility]) RDW 19.0 % Above high normal [facility] ([facility], ) Platelets 198 Normal (applies MEDGEN (St [#/area] in x10E3/uL to non-numeric Juan C's Blood by results) [facility]) Microscopy high power field Neutrophils [#] 54 % Normal (applies MEDGEN ( St in Body fluid by to non-numeric Juan C's Manual count results) [facility]) Lymphs 13 % Normal (applies MEDGEN (St to non-numeric Juan C's results) [facility]) Monocytes 16 % Normal (applies MEDGEN (St [#/volume] in to non-numeric Juan C's Cord blood results) [facility]) Eos 11 % Normal (applies MEDGEN (St to non-numeric Juan C's results) [facility]) Basos 1 % Normal (applies MEDGEN (St to non-numeric Juan C's results) [facility]) Neutrophils 6.4 Normal (applies MEDGEN (St (Absolute) x10E3/uL to non-numeric Juan C's results) [facility]) Lymphs 1.5 Normal (applies MEDGEN (St (Absolute) x10E3/uL to non-numeric Juan C's results) [facility]) Monocytes(Absolu 1.9 Above high normal MEDGE N (St te) x10E3/uL Juan C's [facility]) Eos (Absolute) 1.3 Above high normal MEDGEN (St x10E3/uL [facility], ) Immature 5 % Normal (applies MEDGEN (St Granulocytes to non-numeric Juan C's results) [facility], ) Baso (Absolute) 0.1 Normal (applies MEDGEN ( St x10E3/uL to non-numeric Juan C's results) [facility], ) Immature Grans 0.6 Above high normal MEDGEN (St (Abs) x10E3/uL Juan C's [facility], ) NRBC 4 % Above high normal [facility] ([facility], ) ID Date Data Source [id number] 11/17/2019 12:00:00 AM EST [facility] ([facility], ) Name Value Range Interpretation Description Data Sup porting Code Source(s) Document(s ) Glucose 146 mg/dL Above high normal MEDGEN (St [Mass/volume] Juan C's in Urine [facility], ) collected for unspecified duration Urea nitrogen 41 mg/dL Above high normal MEDGEN ( St [Mass/volume] Juan C's in Serum or [facility], ) Plasma Creatinine 3.05 Above high normal MEDGEN (St [Interpretation mg/dL Juan C's ] in Urine [facility], ) eGFR If 19 Below low normal MEDGEN (St NonAfricn Am mL/min/1. [facility] 73 [facility], ) eGFR If Africn 22 Below low normal MEDGEN ( St Am mL/min/1. Juan C's 73 [facility], ) BUN/Creatinine 13 Normal (applies MEDGEN (S t Ratio to non-numeric Juan C's results) [facility], ) Sodium 140 Normal (applies MEDGEN (St [Moles/volume] mmol/L to non-numeric Juan C's in Serum or results) [facility], ) Plasma Potassium 4.0 Normal (applies MEDGEN (St [Mass/volume] mmol/L to non-numeric Juan C's in Blood results) [facility], ) Chloride 104 Normal (applies MEDGEN (St [Moles/volume] mmol/L to non-numeric Juan C's in Serum or results) [facility], ) Plasma Carbon dioxide, 21 mmol/L Normal (applies MEDGEN ( St total to non-numeric Juan C's [Moles/volume] results) [facility], ) in Serum or Plasma Calcium 9.3 mg/dL Normal (applies MEDGEN (St [Moles/volume] to non-numeric Juan C's in Urine results) [facility], ) collected for unspecified duration ID Date Data Source [id number] 11/17/2019 12:00:00 AM EST [facility] ([facility], ) Name Value Range Interpretation Description Data Sup porting Code Source(s) Document(s ) Glucose 146 mg/dL Above high normal MEDGEN (St [Mass/volume] Juan C's in Urine [facility], ) collected for unspecified duration Urea nitrogen 41 mg/dL Above high normal MEDGEN ( St [Mass/volume] Juan C's in Serum or [facility], ) Plasma Creatinine 3.05 Above high normal MEDGEN (St [Interpretation mg/dL Juan C's ] in Urine [facility], ) eGFR If 19 Below low normal MEDGEN (St NonAfricn Am mL/min/1. Juan C's 73 [facility], ) eGFR If Africn 22 Below low normal MEDGEN ( St Am mL/min/1. Juan C's 73 [facility], ) BUN/Creatinine 13 Normal (applies MEDGEN (S t Ratio to non-numeric Juan C's results) [facility], ) Sodium 140 Normal (applies MEDGEN (St [Moles/volume] mmol/L to non-numeric Juan C's in Serum or results) [facility], ) Plasma Potassium 4.0 Normal (applies MEDGEN (St [Mass/volume] mmol/L to non-numeric Juan C's in Blood results) [facility], ) Chloride 104 Normal (applies MEDGEN (St [Moles/volume] mmol/L to non-numeric Juan C's in Serum or results) [facility], ) Plasma Carbon dioxide, 21 mmol/L Normal (applies MEDGEN ( St total to non-numeric Juan C's [Moles/volume] results) [facility], ) in Serum or Plasma Calcium 9.3 mg/dL Normal (applies MEDGEN (St [Moles/volume] to non-numeric Juan C's in Urine results) [facility], ) collected for unspecified duration ID Date Data Source [id number] 11/17/2019 12:00:00 AM EST [facility] ([facility], ) Name Value Range Interpretation Description Data Sup porting Code Source(s) Document(s ) Glucose 146 mg/dL Above high normal MEDGEN (St [Mass/volume] Juan C's in Urine [facility], ) collected for unspecified duration Creatinine 3.05 Above high normal MEDGEN (St [Interpretation mg/dL Juan C's ] in Urine [facility], ) Urea nitrogen 41 mg/dL Above high normal MEDGEN ( St [Mass/volume] Juan C's in Serum or Medical, ) Plasma eGFR If 19 Below low normal MEDGEN (St NonAfricn Am mL/min/1. Juan C's 73 [facility], ) BUN/Creatinine 13 Normal (applies MEDGEN (S t Ratio to non-numeric Juan C's results) [facility], ) eGFR If Africn 22 Below low normal MEDGEN ( St Am mL/min/. Juan C 73 [facility], ) Potassium 4.0 Normal (applies MEDGEN (St [Mass/volume] mmol/L to non-numeric Juan C's in Blood results) [facility], ) Sodium 140 Normal (applies MEDGEN (St [Moles/volume] mmol/L to non-numeric Juan C's in Serum or results) Medical, ) Plasma Chloride 104 Normal (applies MEDGEN (St [Moles/volume] mmol/L to non-numeric Juan C's in Serum or results) [facility], ) Plasma Calcium 9.3 mg/dL Normal (applies MEDGEN (St [Moles/volume] to non-numeric [place] in Urine results) [facility], ) collected for unspecified duration Carbon dioxide, 21 mmol/L Normal (applies MEDGEN ( St total to non-numeric Juan C's [Moles/volume] results) [facility], ) in Serum or Plasma ID Date Data Source [id number] 11/17/2019 12:00:00 AM EST [facility] ([facility], ) Name Value Range Interpretation Description Data Sup porting Code Source(s) Document(s ) Glucose 146 mg/dL Above high normal MEDGEN (St [Mass/volume] Juan C's in Urine [facility], ) collected for unspecified duration Urea nitrogen 41 mg/dL Above high normal MEDGEN ( St [Mass/volume] Juan C's in Serum or [facility], ) Plasma Creatinine 3.05 Above high normal MEDGEN (St [Interpretation mg/dL Juan C's ] in Urine [facility], ) eGFR If 19 Below low normal MEDGEN (St NonAfricn Am mL/min/. Juan C's 73 [facility], ) eGFR If Africn 22 Below low normal MEDGEN ( St Am mL/min/. Juan C's 73 [facility], ) BUN/Creatinine 13 Normal (applies MEDGEN (S t Ratio to non-numeric Juan C's results) [facility], ) Potassium 4.0 Normal (applies MEDGEN (St [Mass/volume] mmol/L to non-numeric Juan C's [facility] Blood results) [facility] Sodium 140 Normal (applies MEDGEN (St [Moles/volume] mmol/L to non-numeric Juan C's in Serum or results) [facility] Plasma Chloride 104 Normal (applies MEDGEN (St [Moles/volume] mmol/L to non-numeric Juan C's in Serum or results) Medical, ) Plasma Carbon dioxide, 21 mmol/L Normal (applies MEDGEN ( St total to non-numeric Juan C's [Moles/volume] results) [facility], ) in Serum or Plasma Calcium 9.3 mg/dL Normal (applies MEDGEN (St [Moles/volume] to non-numeric Juan C's in Urine results) [facility]) collected for unspecified duration ID Date Data Source [id number] 11/17/2019 12:00:00 AM EST [facility] ([facility], ) Name Value Range Interpretation Description Data Sup porting Code Source(s) Document(s ) Glucose 146 mg/dL Above high normal MEDGEN (St [Mass/volume] Juan C's in Urine [facility], ) collected for unspecified duration Urea nitrogen 41 mg/dL Above high normal MEDGEN ( St [Mass/volume] Juan C's in Serum or [facility], ) Plasma Creatinine 3.05 Above high normal MEDGEN (St [Interpretation mg/dL Juan C's ] in Urine [facility], ) eGFR If 19 Below low normal MEDGEN (St NonAfricn Am mL/min/1. Juan C's 73 [facility]) eGFR If Africn 22 Below low normal MEDGEN ( St Am mL/min/1. Juan C's 73 [facility], ) BUN/Creatinine 13 Normal (applies MEDGEN (S t Ratio to non-numeric Juan C's results) [facility], ) Sodium 140 Normal (applies MEDGEN (St [Moles/volume] mmol/L to non-numeric Juan C's in Serum or results) [facility], ) Plasma Potassium 4.0 Normal (applies MEDGEN (St [Mass/volume] mmol/L to non-numeric Juan C's in Blood results) [facility], ) Chloride 104 Normal (applies MEDGEN (St [Moles/volume] mmol/L to non-numeric Juan C's in Serum or results) [facility], ) Plasma Carbon dioxide, 21 mmol/L Normal (applies MEDGEN ( St total to non-numeric Juan C's [Moles/volume] results) Medical, ) in Serum or Plasma Calcium 9.3 mg/dL Normal (applies MEDGEN (St [Moles/volume] to non-numeric Juan C's in Urine results) Medical, ) collected for unspecified duration ID Date Data Source [id number] 11/17/2019 12:00:00 AM EST [facility] ([facility], ) Name Value Range Interpretation Description Data Sup porting Code Source(s) Document(s ) Glucose 146 mg/dL Above high normal MEDGEN (St [Mass/volume] Juan C's in Urine Medical, ) collected for unspecified duration Urea nitrogen 41 mg/dL Above high normal MEDGEN ( St [Mass/volume] Juan C's in Serum or Medical, ) Plasma Creatinine 3.05 Above high normal MEDGEN (St [Interpretation mg/dL Juan C's ] in Urine [facility], ) eGFR If 19 Below low normal MEDGEN (St NonAfricn Am mL/min/1. Juan C's 73 [facility], ) eGFR If Africn 22 Below low normal MEDGEN ( St Am mL/min/1. Juan C's 73 [facility], ) BUN/Creatinine 13 Normal (applies MEDGEN (S t Ratio to non-numeric Juan C's results) Medical, ) Sodium 140 Normal (applies MEDGEN (St [Moles/volume] mmol/L to non-numeric Juan C's in Serum or results) Medical, ) Plasma Chloride 104 Normal (applies MEDGEN (St [Moles/volume] mmol/L to non-numeric Juan C's in Serum or results) Medical, ) Plasma Potassium 4.0 Normal (applies MEDGEN (St [Mass/volume] mmol/L to non-numeric Juan C's in Blood results) Medical, ) Calcium 9.3 mg/dL Normal (applies MEDGEN (St [Moles/volume] to non-numeric Juan C's in Urine results) Medical, ) collected for unspecified duration Carbon dioxide, 21 mmol/L Normal (applies MEDGEN ( St total to non-numeric Juan C's [Moles/volume] results) Medical, ) in Serum or Plasma ID Date Data Source [id number] 11/17/2019 12:00:00 AM EST [facility] ([facility], ) Name Value Range Interpretation Description Data Sup porting Code Source(s) Document(s ) Glucose 146 mg/dL Above high normal MEDGEN (St [Mass/volume] Juan C's in Urine [facility], ) collected for unspecified duration Urea nitrogen 41 mg/dL Above high normal MEDGEN ( St [Mass/volume] Juan C's in Serum or [facility], ) Plasma Creatinine 3.05 Above high normal MEDGEN (St [Interpretation mg/dL Juan C's ] in Urine [facility], ) eGFR If 19 Below low normal MEDGEN (St NonAfricn Am mL/min/1. Juan C's [address] [place] [address], ) eGFR If Africn 22 Below low normal MEDGEN ( St Am mL/min/1. Juan C' 73 [facility], ) BUN/Creatinine 13 Normal (applies MEDGEN (S t Ratio to non-numeric Juan C's results) [facility], ) Sodium 140 Normal (applies MEDGEN (St [Moles/volume] mmol/L to non-numeric Juan C's in Serum or results) [facility], ) Plasma Potassium 4.0 Normal (applies MEDGEN (St [Mass/volume] mmol/L to non-numeric Juan C's in Blood results) [facility], ) Chloride 104 Normal (applies MEDGEN (St [Moles/volume] mmol/L to non-numeric Juan C's in Serum or results) [facility], ) Plasma Carbon dioxide, 21 mmol/L Normal (applies MEDGEN ( St total to non-numeric Juan C's [Moles/volume] results) [facility], ) in Serum or Plasma Calcium 9.3 mg/dL Normal (applies MEDGEN (St [Moles/volume] to non-numeric Juan C's in Urine results) [facility], ) collected for unspecified duration ID Date Data Source [id number] 11/17/2019 12:00:00 AM EST [facility] ([facility], ) Name Value Range Interpretation Description Data Sup porting Code Source(s) Document(s ) Glucose 146 mg/dL Above high normal MEDGEN (St [Mass/volume] Juan C's in Urine [facility], ) collected for unspecified duration Urea nitrogen 41 mg/dL Above high normal MEDGEN ( St [Mass/volume] Juan C's in Serum or [facility], ) Plasma Creatinine 3.05 Above high normal MEDGEN (St [Interpretation mg/dL Juan C's ] in Urine [facility], ) eGFR If 19 Below low normal MEDGEN (St NonAfricn Am mL/min/. Juan C's 73 [facility], ) eGFR If Africn 22 Below low normal MEDGEN ( St Am mL/min/. Juan C' 73 [facility], ) BUN/Creatinine 13 Normal (applies MEDGEN (S t Ratio to non-numeric Juan C's results) [facility], ) Sodium 140 Normal (applies MEDGEN (St [Moles/volume] mmol/L to non-numeric Juan C's in Serum or results) [facility], ) Plasma Potassium 4.0 Normal (applies MEDGEN (St [Mass/volume] mmol/L to non-numeric Juan C's in Blood results) [facility], ) Chloride 104 Normal (applies MEDGEN (St [Moles/volume] mmol/L to non-numeric Juan C's in Serum or results) [facility], ) Plasma Carbon dioxide, 21 mmol/L Normal (applies MEDGEN ( St total to non-numeric Juan C's [Moles/volume] results) [facility], ) in Serum or Plasma Calcium 9.3 mg/dL Normal (applies MEDGEN (St [Moles/volume] to non-numeric Juan C's in Urine results) [facility], ) collected for unspecified duration ID Date Data Source [id number] 11/17/2019 12:00:00 AM EST [facility] ([facility], ) Name Value Range Interpretation Description Data Sup porting Code Source(s) Document(s ) Glucose 146 mg/dL Above high normal MEDGEN (St [Mass/volume] Juan C's in Urine [facility], ) collected for unspecified duration Urea nitrogen 41 mg/dL Above high normal MEDGEN ( St [Mass/volume] Juan C's in Serum or [facility], ) Plasma Creatinine 3.05 Above high normal MEDGEN (St [Interpretation mg/dL Juan C's ] in Urine [facility], ) eGFR If Africn 22 Below low normal MEDGEN ( St Am mL/min/. Juan C's 73 [facility], ) eGFR If 19 Below low normal MEDGEN (St NonAfricn Am mL/min/1. Juan C's 73 [facility], ) BUN/Creatinine 13 Normal (applies MEDGEN (S t Ratio to non-numeric Juan C's results) [facility], ) Sodium 140 Normal (applies MEDGEN (St [Moles/volume] mmol/L to non-numeric Juan C's in Serum or results) Medical, ) Plasma Potassium 4.0 Normal (applies MEDGEN (St [Mass/volume] mmol/L to non-numeric Juan C's in Blood results) Medical, ) Carbon dioxide, 21 mmol/L Normal (applies MEDGEN ( St total to non-numeric Juan C's [Moles/volume] results) Medical, ) in Serum or Plasma Chloride 104 Normal (applies MEDGEN (St [Moles/volume] mmol/L to non-numeric Juan C's in Serum or results) Medical, ) Plasma Calcium 9.3 mg/dL Normal (applies MEDGEN (St [Moles/volume] to non-numeric Juan C's in Urine results) [facility]) collected for unspecified duration ID Date Data Source [id number] 11/17/2019 12:00:00 AM EST [facility] ([facility], ) Name Value Range Interpretation Description Data Sup porting Code Source(s) Document(s ) Glucose 146 mg/dL Above high normal MEDGEN (St [Mass/volume] Juan C's in Urine [facility], ) collected for unspecified duration Urea nitrogen 41 mg/dL Above high normal MEDGEN ( St [Mass/volume] Juan C's in Serum or Medical, ) Plasma Creatinine 3.05 Above high normal MEDGEN (St [Interpretation mg/dL Juan C's ] in Urine [facility], ) eGFR If 19 Below low normal MEDGEN (St NonAfricn Am mL/min/1. Juan C's 73 [facility], ) eGFR If Africn 22 Below low normal MEDGEN ( St Am mL/min/1. Juan C's 73 [facility], ) BUN/Creatinine 13 Normal (applies MEDGEN (S t Ratio to non-numeric Juan C's results) [facility], ) Potassium 4.0 Normal (applies MEDGEN (St [Mass/volume] mmol/L to non-numeric Juan C's in Blood results) Medical, ) Sodium 140 Normal (applies MEDGEN (St [Moles/volume] mmol/L to non-numeric Juan C's in Serum or results) Medical, ) Plasma Chloride 104 Normal (applies MEDGEN (St [Moles/volume] mmol/L to non-numeric Juan C's in Serum or results) Medical, ) Plasma Calcium 9.3 mg/dL Normal (applies MEDGEN (St [Moles/volume] to non-numeric Juan C's in Urine results) Medical, ) collected for unspecified duration Carbon dioxide, 21 mmol/L Normal (applies MEDGEN ( St total to non-numeric Juan C's [Moles/volume] results) Medical, ) in Serum or Plasma ID Date Data Source [id number] 11/17/2019 12:00:00 AM EST [facility] ([facility], ) Name Value Range Interpretation Description Data Sup porting Code Source(s) Document(s ) Glucose 146 mg/dL Above high normal MEDGEN (St [Mass/volume] Juan C's in Urine [facility], ) collected for unspecified duration Urea nitrogen 41 mg/dL Above high normal MEDGEN ( St [Mass/volume] Juan C's in Serum or [facility], ) Plasma Creatinine 3.05 Above high normal MEDGEN (St [Interpretation mg/dL Juan C's ] in Urine [facility], ) eGFR If Africn 22 Below low normal MEDGEN ( St Am mL/min/1. Juan C's 73 [facility], ) eGFR If 19 Below low normal MEDGEN (St NonAfricn Am mL/min/1. Juan C's 73 [facility], ) BUN/Creatinine 13 Normal (applies MEDGEN (S t Ratio to non-numeric Juan C's results) Medical, ) Sodium 140 Normal (applies MEDGEN (St [Moles/volume] mmol/L to non-numeric Juan C's in Serum or results) Medical, ) Plasma Potassium 4.0 Normal (applies MEDGEN (St [Mass/volume] mmol/L to non-numeric Juan C's in Blood results) Medical, ) Carbon dioxide, 21 mmol/L Normal (applies MEDGEN ( St total to non-numeric Juan C's [Moles/volume] results) Medical, ) in Serum or Plasma Chloride 104 Normal (applies MEDGEN (St [Moles/volume] mmol/L to non-numeric Juan C's in Serum or results) Medical, ) Plasma Calcium 9.3 mg/dL Normal (applies MEDGEN (St [Moles/volume] to non-numeric Juan C's in Urine results) Medical, ) collected for unspecified duration ID Date Data Source [id number] 09/22/2019 12:00:00 AM EST [facility] ([facility], ) Name Value Range Interpretation Code Description Data Lisa rce(s) Supporting Document(s ) ID Date Data Source [id number] 09/22/2019 12:00:00 AM EST [facility] ([facility], ) Name Value Range Interpretation Code Description Data Supporting Source(s) Document(s ) PTH, Intact 14 pg/mL Below low normal [facility] ([facility], ) ID Date Data Source [id number] 09/22/2019 12:00:00 AM EST [facility] ([facility], ) Name Value Range Interpretation Code Description Data Supporting Source(s) Document(s ) Ferritin, 329 ng/mL Normal (applies to MEDGEN (St Serum non-numeric Juan C's results) [facility], ) ID Date Data Source [id number] 09/22/2019 12:00:00 AM EST [facility] ([facility], ) Name Value Range Interpretation Description Data Sup porting Code Source(s) Document(s ) Deprecated 4.8 mg/dL Above high normal MEDGEN (St Phosphorus Juan C's [Mass/time] in [facility], ) 24 hour Urine ID Date Data Source [id number] 09/22/2019 12:00:00 AM EST [facility] ([facility], ) Name Value Range Interpretation Code Description Data Lisa rce(s) Supporting Document(s ) RAGINI Normal (applies to MEDGEN (St Interpreta non-numeric results) Juan C's M edical, tion:U ) ID Date Data Source [id number] 09/22/2019 12:00:00 AM EST MED[facility] ([facility], ) Name Value Range Interpretation Description Data Sup porting Code Source(s) Document(s ) Vitamin D, 36.2 Normal (applies to MEDGEN (St 25-Hydroxy ng/mL non-numeric Juan C's results) [facility], ) ID Date Data Source [id number] 09/22/2019 12:00:00 AM EST [facility] ([facility], ) Name Value Range Interpretation Code Description Data Supporting Source(s) Document(s ) Albumin, 693.2 Normal (applies to MEDGEN (St Urine ug/mL non-numeric Juan C's results) [facility], ) Alb/Creat 394.1 mg/g Above high normal MEDGEN (St Ratio creat [facility], ) ID Date Data Source [id number] 09/22/2019 12:00:00 AM EST [facility] ([facility], ) Name Value Range Interpretation Description Data Sup porting Code Source(s) Document(s ) [place] 476.00 Above high normal MEDGEN (St Lt mg/L [facility]) Free Lambda 44.50 mg/L Above high normal MEDGEN (S t Lt [facility],Ur [facility], [facility]) [place] 10.70 Above high normal MEDGEN (St a Ratio,U [facility], ) ID Date Data Source [id number] 09/22/2019 12:00:00 AM EST MED[facility] ([facility], ) Name Value Range Interpretation Description Data Sup porting Code Source(s) Document(s ) Free [place] 38.9 mg/L Above high normal MEDGEN (St Lt Chains,S [facility]) Free Lambda 133.0 mg/L Above high normal MEDGEN (S t Lt Chains,S [facility]) [place] 0.29 Normal (applies to MEDGEN (S t a Ratio,S non-numeric Juan C's results) [facility], ) ID Date Data Source [id number] 09/22/2019 12:00:00 AM EST [facility] ([facility] Name Value Range Interpretation Code Description Data Supporting Source(s) Document(s ) Creatinine 175.9 Normal (applies to MEDGEN (St , Urine mg/dL non-numeric Juan C's results) [facility], ) Protein/Cr 833 mg/g Above high normal MEDGEN (St eat Ratio creat [facility], ) ID Date Data Source [id number] 09/22/2019 12:00:00 AM EST MEDGEN ([facility], ) Name Value Range Interpretation Description Data Sup porting Code Source(s) Document(s ) Immunofixation Normal (applies MEDGEN (S t Result, Serum to non-numeric Juan C's results) [facility], ) Immunoglobulin G, 3973 Above high normal MEDG EN (St Qn, Serum mg/dL [facility], ) Immunoglobulin M, 13 mg/dL Below low normal MEDGE N (St Qn, Serum [facility], ) Immunoglobulin A, 25 mg/dL Below low normal MEDGE N (St Qn, Serum Juan C's [facility]) ID Date Data Source [id number] 09/22/2019 12:00:00 AM EST MEDGEN (St [facility]) Name Value Range Interpretation Description Data Sup porting Code Source(s) Document(s ) Iron 297 ug/dL Normal (applies to MEDGEN (St Bind.Cap.(TIBC non-numeric Juan C's ) results) [facility], ) UIBC 222 ug/dL Normal (applies to MEDGEN (St non-numeric Juan C's results) [facility], ) Iron 75 ug/dL Normal (applies to MEDGEN (St [Mass/volume] non-numeric Juan C's in Serum or results) [facility], ) Plasma Iron 25 % Normal (applies to MEDGEN (St saturation non-numeric Juan C's [Mass results) [facility], ) Fraction] in Serum or Plasma ID Date Data Source [id number] 09/22/2019 12:00:00 AM EST MEDGEN ([facility]) Name Value Range Interpretation Description Data Sup porting Code Source(s) Document(s ) Protein,Tot 146.6 Normal (applies to MEDGEN (S t al,Urine mg/dL non-numeric [facility] C's results) [facility], ) Albumin, U 47.8 % Normal (applies to MEDGEN (St non-numeric [facility] C's results) [facility], ) Alpha-1-Nadine 3.5 % Normal (applies to MEDGEN (S t bulin, U non-numeric Juan C's results) [facility], ) Alpha-2-Nadine 9.6 % Normal (applies to MEDGEN (S t bulin, U non-numeric [facility]'s results) [facility], ) Beta 24.4 % Normal (applies to MEDGEN (St Globulin, U non-numeric Juan C's results) [facility], ) Gamma 14.8 % Normal (applies to MEDGEN (St Globulin, U non-numeric Juan C's results) [facility], ) M-Kevyn, % 9.8 % Above high normal MEDGEN ([facility], ) Please Normal (applies to MEDGEN (St note: non-numeric Juan C's results) [facility], ) PDF . Normal (applies to MEDGEN (St non-numeric Juan C's results) Medical, ) ID Date Data Source [id number] 09/22/2019 12:00:00 AM EST [facility] ([facility], ) Name Value Range Interpretation Description Data Sup porting Code Source(s) Document(s ) Protein 9.0 g/dL Above high normal MEDGEN (St [Mass/volume] in Juan C's Serum or Plasma Medical, ) Tasph-8-Ziwcuxnm 0.2 g/dL Normal (applies MEDGEN (St to non-numeric [facility]'s results) Medical, ) Microalbumin 4.0 g/dL Normal (applies MEDGEN (St [Mass/time] in to non-numeric [facility] C's Urine collected results) Medical, for unspecified PC) duration Kmdew-8-Yvsxxlel 0.8 g/dL Normal (applies MEDGEN (St to non-numeric [facility]'s results) Medical, ) Beta globulin 0.8 g/dL Normal (applies MEDGEN (St [Mass/volume] in to non-numeric [facility]'s Urine by results) Medical, Electrophoresis ) Gamma globulin 3.2 g/dL Above high normal MEDGEN (St [Mass/volume] by [facility] Electrophoresis in Medical, Urine collected PC) for unspecified duration M-Kevyn 2.9 g/dL Above high normal MEDGEN ([facility], ) Globulin, Total 5.0 g/dL Above high normal [facility] ([facility], ) A/G Ratio 0.8 Normal (applies MEDGEN (St to non-numeric Juan C's results) Medical, ) Please note: Normal (applies MEDGEN (St to non-numeric [facility] C's results) Medical, ) PDF . Normal (applies MEDGEN (St to non-numeric [facility]'s results) Medical, ) ID Date Data Source [id number] 09/22/2019 12:00:00 AM EST MEDGEN ([facility], ) Name Value Range Interpretation Description Data Sup porting Code Source(s) Document(s ) Specific gravity 1.019 Normal (applies MEDGEN (St of Pericardial to non-numeric Juan C's fluid by results) Medical, Refractometry ) pH of Lower 5.0 Normal (applies MEDGEN (St respiratory to non-numeric Juan C's specimen results) Medical, ) Urine-Color Yellow Normal (applies MEDGEN (St to non-numeric [facility] C's results) Medical, ) Appearance of Clear Normal (applies MEDGEN (St Abdomen to non-numeric Juan C's results) Medical, ) WBC Esterase Negative Normal (applies MEDGEN (St to non-numeric [facility] C's results) Medical, ) Glucose Negative Normal (applies MEDGEN (St [Mass/volume] in to non-numeric [facility]'s Urine collected results) Medical, for unspecified PC) duration Protein Abnormal MEDGEN (St [Mass/volume] in (applies to Juan C's Lower non-numeric Medical, respiratory results) ) specimen Ketones Negative Normal (applies MEDGEN (St [Presence] in to non-numeric Juan C's Blood by Tablet results) Medical, ) Occult Blood Negative Normal (applies MEDGEN (St to non-numeric [facility]'s results) Medical, ) Bilirubin Negative Normal (applies MEDGEN (St [Presence] in to non-numeric [facility]'s Peritoneal fluid results) Medical, ) Nitrite, Urine Negative Normal (applies MEDGEN (S t to non-numeric [facility] C's results) Medical, ) Urobilinogen,Mel 0.2 mg/dL Normal (applies MEDGEN (St i-Qn to non-numeric [facility]'s results) Medical, ) Microscopic See below: Normal (applies MEDGEN (St Examination to non-numeric [facility]'s results) Medical, ) ID Date Data Source [id number] 09/22/2019 12:00:00 AM EST [facility] ([facility], ) Name Value Range Interpretation Description Data Sup porting Code Source(s) Document(s ) WBC 0-5 Normal (applies MEDGEN (St to non-numeric [facility] C's results) Medical, ) RBC 0-2 Normal (applies MEDGEN (St to non-numeric [facility]'s results) Medical, ) Epithelial None seen Normal (applies MEDGEN (St Cells (non to non-numeric Juan C's renal) results) Medical, ) Casts Present Abnormal (applies MEDGEN (St [#/area] in to non-numeric [facility]'s Urine results) Medical, ) sediment by Automated count Cast Type Granular Abnormal (applies MEDGEN (St casts to non-numeric [facility]'s results) Medical, ) Crystals Present Abnormal (applies MEDGEN (St [#/area] in to non-numeric [facility] C's Body fluid by results) Medical, ) Light microscopy Mucus Threads Present Normal (applies MEDGEN (St to non-numeric Juan C's results) [facility], ) Crystal Type Calcium Normal (applies MEDGEN (St Oxalate to non-numeric Juan C's results) [facility]) Bacteria Few Normal (applies MEDGEN (St [Presence] in to non-numeric Juan C's Prostatic results) [facility]) fluid by Light microscopy ID Date Data Source [id number] 09/22/2019 12:00:00 AM EST [facility] ([facility], ) Name Value Range Interpretation Description Data Sup porting Code Source(s) Document(s ) Leukocytes 9.5 Normal (applies MEDGEN (St [#/volume] in x10E3/uL to non-numeric Juan C's Blood by results) [facility], ) Automated count Hemoglobin 10.9 Below low normal MEDGEN (St [Mass/volume] in g/dL Juan C's Blood [facility]) Erythrocytes 3.28 Below low normal MEDGEN (St [#/volume] in x10E6/uL Juan C's Blood by [facility], ) Automated count Hematocrit 32.1 % Below low normal MEDGEN (St [Volume Juan C's Fraction] of [facility], ) Blood by Automated count MCV 98 fL Above high normal MEDGEN ([facility], ) MCH 33.2 pg Above high normal MEDGEN ([facility], ) MCHC 34.0 Normal (applies MEDGEN (St g/dL to non-numeric Juan C's results) [facility]) RDW 17.3 % Above high normal MEDGEN ([facility], ) Neutrophils [#] 53 % Normal (applies MEDGEN ( St in Body fluid by to non-numeric Juan C's Manual count results) [facility]) Platelets 240 Normal (applies MEDGEN (St [#/area] in x10E3/uL to non-numeric Juan C's Blood by results) [facility], ) Microscopy high power field Lymphs 19 % Normal (applies MEDGEN (St to non-numeric Juan C's results) [facility]) Monocytes 15 % Normal (applies MEDGEN (St [#/volume] in to non-numeric Juan C's Cord blood results) [facility], ) Eos 11 % Normal (applies MEDGEN (St to non-numeric Juan C's results) [facility]) Basos 0 % Normal (applies MEDGEN (St to non-numeric Juan C's results) Medical, ) Lymphs 1.8 Normal (applies MEDGEN (St (Absolute) x10E3/uL to non-numeric Juan C's results) Medical, ) Neutrophils 5.1 Normal (applies MEDGEN (St (Absolute) x10E3/uL to non-numeric Juan C's results) Medical, ) Monocytes(Absolu 1.5 Above high normal MEDGE N (St te) x10E3/uL [facility], ) Eos (Absolute) 1.0 Above high normal MEDGEN (St x10E3/uL [facility], ) Immature 2 % Normal (applies MEDGEN (St Granulocytes to non-numeric Juan C's results) [facility], ) Baso (Absolute) 0.0 Normal (applies MEDGEN ( St x10E3/uL to non-numeric Juan C's results) [facility], ) Immature Grans 0.2 Above high normal MEDGEN (St (Abs) x10E3/uL [facility], ) Hematology Note: Normal (applies MEDGEN (St Comments: to non-numeric Juan C's results) [facility], ) ID Date Data Source [id number] 09/22/2019 12:00:00 AM EST MEDGEN (St [facility], ) Name Value Range Interpretation Code Description Data Lisa rce(s) Supporting Document(s ) ID Date Data Source [id number] 09/22/2019 12:00:00 AM EST [facility] ([facility], ) Name Value Range Interpretation Code Description Data Supporting Source(s) Document(s ) PTH, Intact 14 pg/mL Below low normal MEDGEN ([facility], ) ID Date Data Source [id number] 09/22/2019 12:00:00 AM EST [facility] ([facility], ) Name Value Range Interpretation Code Description Data Supporting Source(s) Document(s ) Ferritin, 329 ng/mL Normal (applies to MEDGEN (St Serum non-numeric Juan C's results) [facility], ) ID Date Data Source [id number] 09/22/2019 12:00:00 AM EST [facility] ([facility], ) Name Value Range Interpretation Description Data Sup porting Code Source(s) Document(s ) Deprecated 4.8 mg/dL Above high normal MEDGEN (St Phosphorus [place] [Mass/time] in [facility], ) 24 hour Urine ID Date Data Source [id number] 09/22/2019 12:00:00 AM EST MEDGEN ([facility], ) Name Value Range Interpretation Code Description Data Lisa rce(s) Supporting Document(s ) RAGINI Normal (applies to MEDGEN (St Interpreta non-numeric results) [facility] M edical, tion:U ) ID Date Data Source [id number] 09/22/2019 12:00:00 AM EST MEDGEN ([facility], ) Name Value Range Interpretation Description Data Sup porting Code Source(s) Document(s ) Vitamin D, 36.2 Normal (applies to MEDGEN (St 25-Hydroxy ng/mL non-numeric Juan C's results) [facility], ) ID Date Data Source [id number] 09/22/2019 12:00:00 AM EST [facility] ([facility], ) Name Value Range Interpretation Code Description Data Supporting Source(s) Document(s ) Albumin, 693.2 Normal (applies to MEDGEN (St Urine ug/mL non-numeric Juan C's results) [facility], ) Alb/Creat 394.1 mg/g Above high normal MEDGEN (St Ratio creat [facility], ) ID Date Data Source [id number] 09/22/2019 12:00:00 AM EST [facility] ([facility], ) Name Value Range Interpretation Description Data Sup porting Code Source(s) Document(s ) Free [place] 476.00 Above high normal MEDGEN (St Lt mg/L [facility] Chains,[facility], ) Free Lambda 44.50 mg/L Above high normal MEDGEN (S t Lt Juan C's Chains,[facility], ) [place] 10.70 Above high normal MEDGEN (St a Ratio,U [facility], ) ID Date Data Source [id number] 09/22/2019 12:00:00 AM EST [facility] ([facility], ) Name Value Range Interpretation Description Data Sup porting Code Source(s) Document(s ) Free [place] 38.9 mg/L Above high normal MEDGEN (St Lt Chains,S [facility], ) Free Lambda 133.0 mg/L Above high normal MEDGEN (S t Lt Chains,S [facility], ) [place] 0.29 Normal (applies to MEDGEN (S t a Ratio,S non-numeric [facility] results) [facility]) ID Date Data Source [id number] 09/22/2019 12:00:00 AM EST MEDGEN ([facility]) Name Value Range Interpretation Code Description Data Supporting Source(s) Document(s ) Creatinine 175.9 Normal (applies to MEDGEN (St , Urine mg/dL non-numeric Juan C's results) [facility]) Protein/Cr 833 mg/g Above high normal MEDGEN (St eat Ratio creat [facility]) ID Date Data Source [id number] 09/22/2019 12:00:00 AM EST MEDGEN ([facility]) Name Value Range Interpretation Description Data Sup porting Code Source(s) Document(s ) Immunofixation Normal (applies MEDGEN (S t Result, Serum to non-numeric [facility] results) [facility]) Immunoglobulin A, 25 mg/dL Below low normal MEDGE N (St Qn, Serum [facility]) Immunoglobulin G, 3973 Above high normal MEDG EN (St Qn, Serum mg/dL [facility]) Immunoglobulin M, 13 mg/dL Below low normal MEDGE N (St Qn, Serum [facility]) ID Date Data Source [id number] 09/22/2019 12:00:00 AM EST MEDGEN ([facility]) Name Value Range Interpretation Description Data Sup porting Code Source(s) Document(s ) Protein,Tot 146.6 Normal (applies to MEDGEN (S t al,Urine mg/dL non-numeric Juan C's results) [facility]) Albumin, U 47.8 % Normal (applies to MEDGEN (St non-numeric Juan C's results) [facility]) Alpha-1-Nadine 3.5 % Normal (applies to MEDGEN (S t bulin, U non-numeric Juan C's results) [facility]) Alpha-2-Nadine 9.6 % Normal (applies to MEDGEN (S t bulin, U non-numeric [facility] C's results) [facility]) Beta 24.4 % Normal (applies to MEDGEN (St Globulin, U non-numeric [facility] C's results) Medical, ) Gamma 14.8 % Normal (applies to MEDGEN (St Globulin, U non-numeric [facility] C's results) Medical, ) M-Kevyn, % 9.8 % Above high normal MEDGEN ([facility], ) Please Normal (applies to MEDGEN (St note: non-numeric Juan C's results) Medical, ) PDF . Normal (applies to MEDGEN (St non-numeric [facility] C's results) Medical, ) ID Date Data Source [id number] 09/22/2019 12:00:00 AM EST [facility] ([facility], ) Name Value Range Interpretation Description Data Sup porting Code Source(s) Document(s ) Protein 9.0 g/dL Above high normal MEDGEN (St [Mass/volume] in Juan C's Serum or Plasma Medical, ) Microalbumin 4.0 g/dL Normal (applies MEDGEN (St [Mass/time] in to non-numeric [facility]'s Urine collected results) Medical, for unspecified PC) duration Vweaq-8-Mpzabncp 0.2 g/dL Normal (applies MEDGEN (St to non-numeric Juan C's results) Medical, ) Yjlnv-0-Yofxdfua 0.8 g/dL Normal (applies MEDGEN (St to non-numeric [facility] C's results) Medical, ) Beta globulin 0.8 g/dL Normal (applies MEDGEN (St [Mass/volume] in to non-numeric [facility]'s Urine by results) Medical, Electrophoresis PC) Gamma globulin 3.2 g/dL Above high normal MEDGEN (St [Mass/volume] by [facility] C's Electrophoresis in Medical, Urine collected PC) for unspecified duration Globulin, Total 5.0 g/dL Above high normal MEDGEN ([facility], ) M-Kevyn 2.9 g/dL Above high normal MEDGEN ([facility], ) A/G Ratio 0.8 Normal (applies MEDGEN (St to non-numeric Juan C's results) Medical, ) Please note: Normal (applies MEDGEN (St to non-numeric [facility] C's results) Medical, ) PDF . Normal (applies MEDGEN (St to non-numeric [facility] C's results) Medical, ) ID Date Data Source [id number] 09/22/2019 12:00:00 AM EST [facility] ([facility], ) Name Value Range Interpretation Description Data Sup porting Code Source(s) Document(s ) Specific gravity 1.019 Normal (applies MEDGEN (St of Pericardial to non-numeric Juan C's fluid by results) Medical, Refractometry PC) pH of Lower 5.0 Normal (applies MEDGEN (St respiratory to non-numeric Juan C's specimen results) Medical, PC) Appearance of Clear Normal (applies MEDGEN (St Abdomen to non-numeric [facility]'s results) Medical, PC) Urine-Color Yellow Normal (applies MEDGEN (St to non-numeric [facility] C's results) Medical, PC) WBC Esterase Negative Normal (applies MEDGEN (St to non-numeric [facility] C's results) Medical, PC) Protein Abnormal MEDGEN (St [Mass/volume] in (applies to Juan C's Lower non-numeric Medical, respiratory results) PC) specimen Glucose Negative Normal (applies MEDGEN (St [Mass/volume] in to non-numeric [facility]'s Urine collected results) Medical, for unspecified PC) duration Ketones Negative Normal (applies MEDGEN (St [Presence] in to non-numeric Juan C's Blood by Tablet results) Medical, PC) Bilirubin Negative Normal (applies MEDGEN (St [Presence] in to non-numeric [facility]'s Peritoneal fluid results) Medical, PC) Occult Blood Negative Normal (applies MEDGEN (St to non-numeric Juan C's results) Medical, PC) Urobilinogen,Mel 0.2 mg/dL Normal (applies MEDGEN (St i-Qn to non-numeric [facility]'s results) Medical, PC) Nitrite, Urine Negative Normal (applies MEDGEN (S t to non-numeric Juan C's results) Medical, PC) Microscopic See below: Normal (applies MEDGEN (St Examination to non-numeric Juan C's results) Medical, PC) ID Date Data Source [id number] 09/22/2019 12:00:00 AM EST [facility] ([facility], ) Name Value Range Interpretation Description Data Sup porting Code Source(s) Document(s ) WBC 0-5 Normal (applies MEDGEN (St to non-numeric Juan C's results) Medical, PC) RBC 0-2 Normal (applies MEDGEN (St to non-numeric [facility] C's results) Medical, PC) Epithelial None seen Normal (applies MEDGEN (St Cells (non to non-numeric Juan C's renal) results) [facility], ) Casts Present Abnormal (applies MEDGEN (St [#/area] in to non-numeric [facility] C's Urine results) [facility]) sediment by Automated count Cast Type Granular Abnormal (applies MEDGEN (St casts to non-numeric Juan C's results) [facility]) Crystals Present Abnormal (applies MEDGEN (St [#/area] in to non-numeric Juan C's Body fluid by results) [facility], ) Light microscopy Crystal Type Calcium Normal (applies MEDGEN (St Oxalate to non-numeric Juan C's results) [facility]) Mucus Threads Present Normal (applies MEDGEN (St to non-numeric Juan C's results) [facility]) Bacteria Few Normal (applies MEDGEN (St [Presence] in to non-numeric Juan C's Prostatic results) [facility]) fluid by Light microscopy ID Date Data Source [id number] 09/22/2019 12:00:00 AM EST MEDGEN (St [facility], ) Name Value Range Interpretation Description Data Sup porting Code Source(s) Document(s ) Leukocytes 9.5 Normal (applies MEDGEN (St [#/volume] in x10E3/uL to non-numeric Juan C's Blood by results) [facility], ) Automated count Erythrocytes 3.28 Below low normal MEDGEN (St [#/volume] in x10E6/uL Juan C's Blood by [facility], ) Automated count Hemoglobin 10.9 Below low normal MEDGEN (St [Mass/volume] in g/dL Juan C's Blood [facility]) Hematocrit 32.1 % Below low normal MEDGEN (St [Volume Juan C's Fraction] of [facility]) Blood by Automated count MCV 98 fL Above high normal MEDGEN ([facility], ) MCH 33.2 pg Above high normal MEDGEN ([facility]) MCHC 34.0 Normal (applies MEDGEN (St g/dL to non-numeric Juan C's results) [facility]) RDW 17.3 % Above high normal MEDGEN ([facility]) Neutrophils [#] 53 % Normal (applies MEDGEN ( St in Body fluid by to non-numeric Juan C's Manual count results) [facility]) Platelets 240 Normal (applies MEDGEN (St [#/area] in x10E3/uL to non-numeric Juan C's Blood by results) Medical, ) Microscopy high power field Lymphs 19 % Normal (applies MEDGEN (St to non-numeric Juan C's results) [facility], ) Monocytes 15 % Normal (applies MEDGEN (St [#/volume] in to non-numeric Juan C's Cord blood results) [facility], ) Eos 11 % Normal (applies MEDGEN (St to non-numeric Juan C's results) [facility], ) Basos 0 % Normal (applies MEDGEN (St to non-numeric Juan C's results) [facility], ) Neutrophils 5.1 Normal (applies MEDGEN (St (Absolute) x10E3/uL to non-numeric Juan C's results) [facility], ) Lymphs 1.8 Normal (applies MEDGEN (St (Absolute) x10E3/uL to non-numeric Juan C's results) [facility], ) Monocytes(Absolu 1.5 Above high normal MEDGE N (St te) x10E3/uL [facility], ) Eos (Absolute) 1.0 Above high normal MEDGEN (St x10E3/uL Juan C's [facility], ) Baso (Absolute) 0.0 Normal (applies MEDGEN ( St x10E3/uL to non-numeric Juan C's results) [facility], ) Immature 2 % Normal (applies MEDGEN (St Granulocytes to non-numeric Juan C's results) [facility], ) Immature Grans 0.2 Above high normal MEDGEN (St (Abs) x10E3/uL [facility] [facility] Hematology Note: Normal (applies MEDGEN (St Comments: to non-numeric Juan C's results) [facility], ) ID Date Data Source [id number] 09/22/2019 12:00:00 AM EST MEDGEN ([facility], ) Name Value Range Interpretation Code Description Data Lisa rce(s) Supporting Document(s ) ID Date Data Source [id number] 09/22/2019 12:00:00 AM EST MEDGEN ([facility], ) Name Value Range Interpretation Code Description Data Supporting Source(s) Document(s ) PTH, Intact 14 pg/mL Below low normal MEDGEN ([facility], ) ID Date Data Source [id number] 09/22/2019 12:00:00 AM EST MEDGEN ([facility], ) Name Value Range Interpretation Code Description Data Supporting Source(s) Document(s ) Ferritin, 329 ng/mL Normal (applies to MEDGEN (St Serum non-numeric Juan C's results) [facility], ) ID Date Data Source [id number] 09/22/2019 12:00:00 AM EST MEDGEN ([facility], ) Name Value Range Interpretation Description Data Sup porting Code Source(s) Document(s ) Deprecated 4.8 mg/dL Above high normal MEDGEN (St Phosphorus Juan C's [Mass/time] in [facility], ) 24 hour Urine ID Date Data Source [id number] 09/22/2019 12:00:00 AM EST MEDGEN ([facility], ) Name Value Range Interpretation Code Description Data Lisa rce(s) Supporting Document(s ) ID Date Data Source [id number] 09/22/2019 12:00:00 AM EST MEDGEN ([facility], ) Name Value Range Interpretation Description Data Sup porting Code Source(s) Document(s ) Vitamin D, 36.2 Normal (applies to MEDGEN (St 25-Hydroxy ng/mL non-numeric Juan C's results) [facility], ) ID Date Data Source [id number] 09/22/2019 12:00:00 AM EST MEDGEN ([facility], ) Name Value Range Interpretation Code Description Data Supporting Source(s) Document(s ) Albumin, 693.2 Normal (applies to MEDGEN (St Urine ug/mL non-numeric Juan C's results) [facility], ) Alb/Creat 394.1 mg/g Above high normal MEDGEN (St Ratio creat [facility], ) ID Date Data Source [id number] 09/22/2019 12:00:00 AM EST MEDGEN ([facility], ) Name Value Range Interpretation Description Data Sup porting Code Source(s) Document(s ) Free [place] 476.00 Above high normal MEDGEN (St Lt mg/L Juan C's Chains,[facility], ) Free Lambda 44.50 mg/L Above high normal MEDGEN (S t Lt Juan C's Chains,Ur [facility], ) [place] 10.70 Above high normal MEDGEN (St a Ratio,U [facility], ) ID Date Data Source [id number] 09/22/2019 12:00:00 AM EST MEDGEN ([facility], ) Name Value Range Interpretation Description Data Sup porting Code Source(s) Document(s ) Free [place] 38.9 mg/L Above high normal MEDGEN (St Lt Chains,S [facility], ) Free Lambda 133.0 mg/L Above high normal MEDGEN (S t Lt Chains,S [facility], ) [place] 0.29 Normal (applies to MEDGEN (S t a Ratio,S non-numeric [facility]'s results) [facility], ) ID Date Data Source [id number] 09/22/2019 12:00:00 AM EST MEDGEN ([facility], ) Name Value Range Interpretation Code Description Data Supporting Source(s) Document(s ) Creatinine 175.9 Normal (applies to MEDGEN (St , Urine mg/dL non-numeric Juan C's results) [facility], ) Protein/Cr 833 mg/g Above high normal MEDGEN (St eat Ratio creat [facility], ) ID Date Data Source [id number] 09/22/2019 12:00:00 AM EST MEDGEN ([facility], ) Name Value Range Interpretation Description Data Sup porting Code Source(s) Document(s ) Immunoglobulin A, 25 mg/dL Below low normal MEDGE N (St Qn, Serum [facility]) Immunoglobulin G, 3973 Above high normal MEDG EN (St Qn, Serum mg/dL [facility]) Immunoglobulin M, 13 mg/dL Below low normal MEDGE N (St Qn, Serum [facility]) ID Date Data Source [id number] 09/22/2019 12:00:00 AM EST MEDGEN ([facility], ) Name Value Range Interpretation Description Data Sup porting Code Source(s) Document(s ) Iron 297 ug/dL Normal (applies to MEDGEN (St Bind.Cap.(TIBC non-numeric Juan C's ) results) [facility]) UIBC 222 ug/dL Normal (applies to MEDGEN (St non-numeric Juan C's results) [facility], ) Iron 75 ug/dL Normal (applies to MEDGEN (St [Mass/volume] non-numeric Juan C's in Serum or results) [facility], ) Plasma Iron 25 % Normal (applies to MEDGEN (St saturation non-numeric Juan C's [Mass results) Medical, ) Fraction] in Serum or Plasma ID Date Data Source [id number] 09/22/2019 12:00:00 AM EST MEDGEN ([facility], ) Name Value Range Interpretation Code Description Data Supporting Source(s) Document(s ) Protein,To 146.6 Normal (applies to MEDGEN (St ruth,Urine mg/dL non-numeric Juan C's results) Medical, ) Albumin, U 47.8 % Normal (applies to MEDGEN (St non-numeric Juan C's results) Medical, ) Alpha-1-Gl 3.5 % Normal (applies to MEDGEN (St obulin, U non-numeric Juan C's results) Medical, ) Alpha-2-Gl 9.6 % Normal (applies to MEDGEN (St obulin, U non-numeric Juan C's results) Medical, ) Gamma 14.8 % Normal (applies to MEDGEN (St Globulin, non-numeric Juan C's U results) Medical, ) Beta 24.4 % Normal (applies to MEDGEN (St Globulin, non-numeric Juan C's U results) Medical, ) M-Kevyn, % 9.8 % Above high normal MEDGEN ([facility], ) PDF . Normal (applies to MEDGEN (St non-numeric Juan C's results) Medical, ) ID Date Data Source [id number] 09/22/2019 12:00:00 AM EST MEDGEN ([facility], ) Name Value Range Interpretation Description Data Sup porting Code Source(s) Document(s ) Protein 9.0 g/dL Above high normal MEDGEN (St [Mass/volume] in Juan C's Serum or Plasma Medical, ) Ltigq-5-Pybrsdza 0.2 g/dL Normal (applies MEDGEN (St to non-numeric Juan C's results) Medical, ) Microalbumin 4.0 g/dL Normal (applies MEDGEN (St [Mass/time] in to non-numeric Juan C's Urine collected results) [facility], for unspecified PC) duration Inzok-2-Jkhiedmh 0.8 g/dL Normal (applies MEDGEN (St to non-numeric Juan C's results) Medical, ) Gamma globulin 3.2 g/dL Above high normal MEDGEN (St [Mass/volume] by Juan C's Electrophoresis in Medical, Urine collected ) for unspecified duration Beta globulin 0.8 g/dL Normal (applies MEDGEN (St [Mass/volume] in to non-numeric Juan C's Urine by results) Medical, Electrophoresis ) M-Kevyn 2.9 g/dL Above high normal MEDGEN ([facility], ) Globulin, Total 5.0 g/dL Above high normal MEDGEN ([facility], ) A/G Ratio 0.8 Normal (applies MEDGEN (St to non-numeric Juan C's results) Medical, ) PDF . Normal (applies MEDGEN (St to non-numeric Juan C's results) [facility], ) ID Date Data Source [id number] 09/22/2019 12:00:00 AM EST MEDGEN (St [facility], ) Name Value Range Interpretation Description Data Sup porting Code Source(s) Document(s ) Specific gravity 1.019 Normal (applies MEDGEN (St of Pericardial to non-numeric Juan C's fluid by results) [facility], Refractometry ) pH of Lower 5.0 Normal (applies MEDGEN (St respiratory to non-numeric Juan C's specimen results) Medical, ) Urine-Color Yellow Normal (applies MEDGEN (St to non-numeric Juan C's results) Medical, ) Appearance of Clear Normal (applies MEDGEN (St Abdomen to non-numeric Juan C's results) [facility], ) WBC Esterase Negative Normal (applies MEDGEN (St to non-numeric Juan C's results) Medical, ) Protein Abnormal MEDGEN (St [Mass/volume] in (applies to Juan C's Lower non-numeric Medical, respiratory results) ) specimen Glucose Negative Normal (applies MEDGEN (St [Mass/volume] in to non-numeric Juan C's Urine collected results) [facility], for unspecified PC) duration Ketones Negative Normal (applies MEDGEN (St [Presence] in to non-numeric Juan C's Blood by Tablet results) Medical, ) Bilirubin Negative Normal (applies MEDGEN (St [Presence] in to non-numeric Juan C's Peritoneal fluid results) [facility], ) Occult Blood Negative Normal (applies MEDGEN (St to non-numeric Juan C's results) [facility], ) Urobilinogen,Mel 0.2 mg/dL Normal (applies MEDGEN (St i-Qn to non-numeric Juan C's results) [facility], ) Nitrite, Urine Negative Normal (applies MEDGEN (S t to non-numeric Juan C's results) Medical, ) Microscopic See below: Normal (applies MEDGEN (St Examination to non-numeric Juan C's results) [facility], ) ID Date Data Source [id number] 09/22/2019 12:00:00 AM EST [facility], ) Name Value Range Interpretation Description Data Sup porting Code Source(s) Document(s ) WBC 0-5 Normal (applies MEDGEN (St to non-numeric Juan C's results) Medical, ) RBC 0-2 Normal (applies MEDGEN (St to non-numeric Juan C's results) [facility], ) Casts Present Abnormal (applies MEDGEN (St [#/area] in to non-numeric Juan C's Urine results) [facility], ) sediment by Automated count Epithelial None seen Normal (applies MEDGEN (St Cells (non to non-numeric Juan C's renal) results) [facility], ) Cast Type Granular Abnormal (applies MEDGEN (St casts to non-numeric Juan C's results) [facility], ) Crystals Present Abnormal (applies MEDGEN (St [#/area] in to non-numeric Juan C's Body fluid by results) [facility], ) Light microscopy Crystal Type Calcium Normal (applies MEDGEN (St Oxalate to non-numeric Juan C's results) [facility], ) Mucus Threads Present Normal (applies MEDGEN (St to non-numeric Juan C's results) [facility], ) Bacteria Few Normal (applies MEDGEN (St [Presence] in to non-numeric Juan C's Prostatic results) [facility], ) fluid by Light microscopy ID Date Data Source [id number] 09/22/2019 12:00:00 AM EST [facility], ) Name Value Range Interpretation Description Data Sup porting Code Source(s) Document(s ) Leukocytes 9.5 Normal (applies MEDGEN (St [#/volume] in x10E3/uL to non-numeric Juan C's Blood by results) [facility], ) Automated count Hemoglobin 10.9 Below low normal MEDGEN (St [Mass/volume] in g/dL Juan C's Blood [facility], ) Erythrocytes 3.28 Below low normal MEDGEN (St [#/volume] in x10E6/uL Juan C's Blood by [facility], ) Automated count Hematocrit 32.1 % Below low normal MEDGEN (St [Volume Juan C's Fraction] of [facility]) Blood by Automated count MCV 98 fL Above high normal MEDGEN ([facility]) MCH 33.2 pg Above high normal MEDGEN ([facility]) RDW 17.3 % Above high normal MEDGEN ([facility]) MCHC 34.0 Normal (applies MEDGEN (St g/dL to non-numeric Juan C's results) [facility]) Platelets 240 Normal (applies MEDGEN (St [#/area] in x10E3/uL to non-numeric Juan C's Blood by results) [facility]) Microscopy high power field Neutrophils [#] 53 % Normal (applies MEDGEN ( St in Body fluid by to non-numeric Juan C's Manual count results) [facility]) Lymphs 19 % Normal (applies MEDGEN (St to non-numeric Juan C's results) [facility]) Monocytes 15 % Normal (applies MEDGEN (St [#/volume] in to non-numeric Juan C's Cord blood results) [facility]) Basos 0 % Normal (applies MEDGEN (St to non-numeric Juan C's results) [facility]) Eos 11 % Normal (applies MEDGEN (St to non-numeric Juan C's results) [facility]) Neutrophils 5.1 Normal (applies MEDGEN (St (Absolute) x10E3/uL to non-numeric Juan C's results) [facility]) Lymphs 1.8 Normal (applies MEDGEN (St (Absolute) x10E3/uL to non-numeric Juan C's results) [facility]) Monocytes(Absolu 1.5 Above high normal MEDGE N (St te) x10E3/uL [facility]) Eos (Absolute) 1.0 Above high normal MEDGEN (St x10E3/uL [facility]) Baso (Absolute) 0.0 Normal (applies MEDGEN ( St x10E3/uL to non-numeric Juan C's results) [facility]) Immature 2 % Normal (applies MEDGEN (St Granulocytes to non-numeric Juan C's results) [facility]) Immature Grans 0.2 Above high normal MEDGEN (St (Abs) x10E3/uL [facility]) Hematology Note: Normal (applies MEDGEN (St Comments: to non-numeric Juan C's results) Medical, ) ID Date Data Source [id number] 09/22/2019 12:00:00 AM EST MEDGEN (St [facility], ) Name Value Range Interpretation Code Description Data Lisa rce(s) Supporting Document(s ) ID Date Data Source [id number] 09/22/2019 12:00:00 AM EST MEDGEN (St [facility], ) Name Value Range Interpretation Code Description Data Supporting Source(s) Document(s ) PTH, Intact 14 pg/mL Below low normal MEDGEN ([facility], ) ID Date Data Source [id number] 09/22/2019 12:00:00 AM EST MEDGEN ([facility], ) Name Value Range Interpretation Code Description Data Supporting Source(s) Document(s ) Ferritin, 329 ng/mL Normal (applies to MEDGEN (St Serum non-numeric Juan C's results) [facility], ) ID Date Data Source [id number] 09/22/2019 12:00:00 AM EST MEDGEN ([facility], ) Name Value Range Interpretation Description Data Sup porting Code Source(s) Document(s ) Deprecated 4.8 mg/dL Above high normal MEDGEN (St Phosphorus Juan C's [Mass/time] in Medical, ) 24 hour Urine ID Date Data Source [id number] 09/22/2019 12:00:00 AM EST MEDGEN ([facility], ) Name Value Range Interpretation Code Description Data Lisa rce(s) Supporting Document(s ) RAGINI Normal (applies to MEDGEN (St Interpreta non-numeric results) Juan C's M edical, tion:U PC) ID Date Data Source [id number] 09/22/2019 12:00:00 AM EST MEDGEN (St [facility], ) Name Value Range Interpretation Description Data Sup porting Code Source(s) Document(s ) Vitamin D, 36.2 Normal (applies to MEDGEN (St 25-Hydroxy ng/mL non-numeric Juan C's results) Medical, ) ID Date Data Source [id number] 09/22/2019 12:00:00 AM EST MEDGEN ([facility], ) Name Value Range Interpretation Code Description Data Supporting Source(s) Document(s ) Albumin, 693.2 Normal (applies to MEDGEN (St Urine ug/mL non-numeric Juan C's results) [facility], ) Alb/Creat 394.1 mg/g Above high normal MEDGEN (St Ratio creat [facility], ) ID Date Data Source [id number] 09/22/2019 12:00:00 AM EST MEDGEN ([facility], ) Name Value Range Interpretation Description Data Sup porting Code Source(s) Document(s ) Free [place] 476.00 Above high normal MEDGEN (St Lt mg/L Juan C's Chains,Ur [facility], ) Free Lambda 44.50 mg/L Above high normal MEDGEN (S t Lt Juan C's Chains,Ur [facility], ) [place] 10.70 Above high normal MEDGEN (St a Ratio,U [facility], ) ID Date Data Source [id number] 09/22/2019 12:00:00 AM EST MEDGEN ([facility], ) Name Value Range Interpretation Description Data Sup porting Code Source(s) Document(s ) Free [place] 38.9 mg/L Above high normal MEDGEN (St Lt Chains,S Juan C's [facility], ) Free Lambda 133.0 mg/L Above high normal MEDGEN (S t Lt Chains,S [facility], ) [place] 0.29 Normal (applies to MEDGEN (S t a Ratio,S non-numeric Juan C's results) [facility], ) ID Date Data Source [id number] 09/22/2019 12:00:00 AM EST MEDGEN ([facility], ) Name Value Range Interpretation Code Description Data Supporting Source(s) Document(s ) Creatinine 175.9 Normal (applies to MEDGEN (St , Urine mg/dL non-numeric Juan C's results) [facility], ) Protein/Cr 833 mg/g Above high normal MEDGEN (St eat Ratio creat [facility], ) ID Date Data Source [id number] 09/22/2019 12:00:00 AM EST MEDGEN ([facility], ) Name Value Range Interpretation Description Data Sup porting Code Source(s) Document(s ) Immunofixation Normal (applies MEDGEN (S t Result, Serum to non-numeric Juan C's results) [facility], ) Immunoglobulin G, 3973 Above high normal MEDG EN (St Qn, Serum mg/dL [facility]) Immunoglobulin A, 25 mg/dL Below low normal MEDGE N (St Qn, Serum [facility]) Immunoglobulin M, 13 mg/dL Below low normal MEDGE N (St Qn, Serum [facility]) ID Date Data Source [id number] 09/22/2019 12:00:00 AM EST MEDGEN ([facility]) Name Value Range Interpretation Description Data Sup porting Code Source(s) Document(s ) Iron 297 ug/dL Normal (applies to MEDGEN (St Bind.Cap.(TIBC non-numeric Juan C's ) results) [facility]) UIBC 222 ug/dL Normal (applies to MEDGEN (St non-numeric Juan C's results) [facility]) Iron 75 ug/dL Normal (applies to MEDGEN (St [Mass/volume] non-numeric Juan C's in Serum or results) [facility]) Plasma Iron 25 % Normal (applies to MEDGEN (St saturation non-numeric Juan C's [Mass results) [facility]) Fraction] in Serum or Plasma ID Date Data Source [id number] 09/22/2019 12:00:00 AM EST MEDGEN ([facility]) Name Value Range Interpretation Description Data Sup porting Code Source(s) Document(s ) Protein,Tot 146.6 Normal (applies to MEDGEN (S t al,Urine mg/dL non-numeric Juan C's results) [facility]) Albumin, U 47.8 % Normal (applies to MEDGEN (St non-numeric Juan C's results) [facility]) Alpha-1-Nadine 3.5 % Normal (applies to MEDGEN (S t bulin, U non-numeric Juan C's results) [facility]) Alpha-2-Nadine 9.6 % Normal (applies to MEDGEN (S t bulin, U non-numeric Juan C's results) [facility]) Beta 24.4 % Normal (applies to MEDGEN (St Globulin, U non-numeric Juan C's results) [facility]) Gamma 14.8 % Normal (applies to MEDGEN (St Globulin, U non-numeric Juan C's results) [facility]) M-Kevyn, % 9.8 % Above high normal [facility]GEN ([facility]) Please Normal (applies to MEDGEN (St note: non-numeric Juan C's results) Medical, PC) PDF . Normal (applies to MEDGEN (St non-numeric Juan C's results) Medical, ) ID Date Data Source [id number] 09/22/2019 12:00:00 AM EST MEDGEN ([facility], ) Name Value Range Interpretation Description Data Sup porting Code Source(s) Document(s ) Protein 9.0 g/dL Above high normal MEDGEN (St [Mass/volume] in Juan C's Serum or Plasma Medical, ) Microalbumin 4.0 g/dL Normal (applies MEDGEN (St [Mass/time] in to non-numeric Juan C's Urine collected results) Medical, for unspecified PC) duration Vfvwa-8-Gnavlgeh 0.2 g/dL Normal (applies MEDGEN (St to non-numeric Juan C's results) Medical, ) Hekan-0-Ssgbclzz 0.8 g/dL Normal (applies MEDGEN (St to non-numeric Juan C's results) Medical, ) Beta globulin 0.8 g/dL Normal (applies MEDGEN (St [Mass/volume] in to non-numeric Juan C's Urine by results) Medical, Electrophoresis PC) Gamma globulin 3.2 g/dL Above high normal MEDGEN (St [Mass/volume] by Juan C's Electrophoresis in Medical, Urine collected PC) for unspecified duration M-Kevyn 2.9 g/dL Above high normal MEDGEN ([facility], ) Globulin, Total 5.0 g/dL Above high normal [facility] ([facility], ) A/G Ratio 0.8 Normal (applies MEDGEN (St to non-numeric Juan C's results) Medical, ) Please note: Normal (applies MEDGEN (St to non-numeric Juan C's results) Medical, ) PDF . Normal (applies MEDGEN (St to non-numeric Juan C's results) Medical, ) ID Date Data Source [id number] 09/22/2019 12:00:00 AM EST MEDGEN ([facility], ) Name Value Range Interpretation Description Data Sup porting Code Source(s) Document(s ) Specific gravity 1.019 Normal (applies MEDGEN (St of Pericardial to non-numeric Juan C's fluid by results) Medical, Refractometry PC) pH of Lower 5.0 Normal (applies MEDGEN (St respiratory to non-numeric Juan C's specimen results) Medical, PC) Urine-Color Yellow Normal (applies MEDGEN (St to non-numeric Juan C's results) Medical, PC) Appearance of Clear Normal (applies MEDGEN (St Abdomen to non-numeric Juan C's results) Medical, PC) WBC Esterase Negative Normal (applies MEDGEN (St to non-numeric Juan C's results) Medical, PC) Protein Abnormal MEDGEN (St [Mass/volume] in (applies to Juan C's Lower non-numeric Medical, respiratory results) PC) specimen Glucose Negative Normal (applies MEDGEN (St [Mass/volume] in to non-numeric Juan C's Urine collected results) Medical, for unspecified PC) duration Ketones Negative Normal (applies MEDGEN (St [Presence] in to non-numeric Juan C's Blood by Tablet results) Medical, PC) Occult Blood Negative Normal (applies MEDGEN (St to non-numeric Juan C's results) Medical, ) Bilirubin Negative Normal (applies MEDGEN (St [Presence] in to non-numeric Juan C's Peritoneal fluid results) Medical, ) Urobilinogen,Mel 0.2 mg/dL Normal (applies MEDGEN (St i-Qn to non-numeric Juan C's results) Medical, PC) Nitrite, Urine Negative Normal (applies MEDGEN (S t to non-numeric Juan C's results) Medical, PC) Microscopic See below: Normal (applies MEDGEN (St Examination to non-numeric Juan C's results) Medical, ) ID Date Data Source [id number] 09/22/2019 12:00:00 AM EST [facility]GEN ([facility], ) Name Value Range Interpretation Description Data Sup porting Code Source(s) Document(s ) WBC 0-5 Normal (applies MEDGEN (St to non-numeric Juan C's results) Medical, PC) RBC 0-2 Normal (applies MEDGEN (St to non-numeric Juan C's results) Medical, PC) Epithelial None seen Normal (applies MEDGEN (St Cells (non to non-numeric Juan C's renal) results) Medical, ) Casts Present Abnormal (applies MEDGEN (St [#/area] in to non-numeric Juan C's Urine results) Medical, ) sediment by Automated count Cast Type Granular Abnormal (applies MEDGEN (St casts to non-numeric Juan C's results) [facility], ) Crystals Present Abnormal (applies MEDGEN (St [#/area] in to non-numeric Juan C's Body fluid by results) [facility], ) Light microscopy Crystal Type Calcium Normal (applies MEDGEN (St Oxalate to non-numeric Juan C's results) [facility]) Mucus Threads Present Normal (applies MEDGEN (St to non-numeric Juan C's results) [facility]) Bacteria Few Normal (applies MEDGEN (St [Presence] in to non-numeric Juan C's Prostatic results) [facility]) fluid by Light microscopy ID Date Data Source [id number] 09/22/2019 12:00:00 AM EST MEDGEN ([facility], ) Name Value Range Interpretation Description Data Sup porting Code Source(s) Document(s ) Leukocytes 9.5 Normal (applies MEDGEN (St [#/volume] in x10E3/uL to non-numeric Juan C's Blood by results) [facility], ) Automated count Erythrocytes 3.28 Below low normal MEDGEN (St [#/volume] in x10E6/uL Juan C's Blood by [facility], ) Automated count Hemoglobin 10.9 Below low normal MEDGEN (St [Mass/volume] in g/dL Juan C's Blood [facility], ) Hematocrit 32.1 % Below low normal MEDGEN (St [Volume Juan C's Fraction] of [facility]) Blood by Automated count MCV 98 fL Above high normal MEDGEN ([facility], ) MCH 33.2 pg Above high normal MEDGEN ([facility], ) MCHC 34.0 Normal (applies MEDGEN (St g/dL to non-numeric Juan C's results) [facility]) RDW 17.3 % Above high normal MEDGEN ([facility], ) Platelets 240 Normal (applies MEDGEN (St [#/area] in x10E3/uL to non-numeric Juan C's Blood by results) [facility]) Microscopy high power field Neutrophils [#] 53 % Normal (applies MEDGEN ( St in Body fluid by to non-numeric Juan C's Manual count results) [facility], ) Lymphs 19 % Normal (applies MEDGEN (St to non-numeric Juan C's results) [facility]) Monocytes 15 % Normal (applies MEDGEN (St [#/volume] in to non-numeric Juan C's Cord blood results) Medical, ) Eos 11 % Normal (applies MEDGEN (St to non-numeric Juan C's results) [facility], ) Basos 0 % Normal (applies MEDGEN (St to non-numeric Juan C's results) [facility], ) Neutrophils 5.1 Normal (applies MEDGEN (St (Absolute) x10E3/uL to non-numeric Juan C's results) Medical, ) Lymphs 1.8 Normal (applies MEDGEN (St (Absolute) x10E3/uL to non-numeric Juan C's results) [facility], ) Monocytes(Absolu 1.5 Above high normal MEDGE N (St te) x10E3/uL [facility], ) Eos (Absolute) 1.0 Above high normal MEDGEN (St x10E3/uL [facility], ) Baso (Absolute) 0.0 Normal (applies MEDGEN ( St x10E3/uL to non-numeric Juan C's results) Medical, ) Immature 2 % Normal (applies MEDGEN (St Granulocytes to non-numeric Juan C's results) [facility], ) Immature Grans 0.2 Above high normal MEDGEN (St (Abs) x10E3/uL [facility], ) Hematology Note: Normal (applies MEDGEN (St Comments: to non-numeric Juan C's results) [facility], ) ID Date Data Source [id number] 09/22/2019 12:00:00 AM EST MEDGEN ([facility], ) Name Value Range Interpretation Code Description Data Lisa rce(s) Supporting Document(s ) ID Date Data Source [id number] 09/22/2019 12:00:00 AM EST [facility] ([facility], ) Name Value Range Interpretation Code Description Data Supporting Source(s) Document(s ) PTH, Intact 10 pg/mL Below low normal [facility] ([facility], ) PTH, Intact 14 pg/mL Below low normal MEDGEN ([facility], ) ID Date Data Source [id number] 09/22/2019 12:00:00 AM EST MEDGEN ([facility], ) Name Value Range Interpretation Code Description Data Supporting Source(s) Document(s ) Ferritin, 349 ng/mL Normal (applies to MEDGEN (St Serum non-numeric Juan C's results) [facility], ) Ferritin, 329 ng/mL Normal (applies to MEDGEN (St Serum non-numeric Juan C's results) [facility]) ID Date Data Source [id number] 09/22/2019 12:00:00 AM EST MEDGEN ([facility]) Name Value Range Interpretation Description Data Sup porting Code Source(s) Document(s ) Deprecated 5.4 mg/dL Above high normal MEDGEN (St Phosphorus Juan C's [Mass/time] in [facility]) 24 hour Urine Deprecated 4.8 mg/dL Above high normal MEDGEN (St Phosphorus Juan C's [Mass/time] in [facility]) 24 hour Urine ID Date Data Source [id number] 09/22/2019 12:00:00 AM EST MEDGEN ([facility]) Name Value Range Interpretation Code Description Data Lisa rce(s) Supporting Document(s ) ID Date Data Source [id number] 09/22/2019 12:00:00 AM EST MEDGEN ([facility]) Name Value Range Interpretation Description Data Sup porting Code Source(s) Document(s ) Vitamin D, 30.6 Normal (applies to MEDGEN (St 25-Hydroxy ng/mL non-numeric Juan C's results) [facility]) Vitamin D, 42.8 Normal (applies to MEDGEN (St 25-Hydroxy ng/mL non-numeric Juan C's results) [facility]) Vitamin D, 36.2 Normal (applies to MEDGEN (St 25-Hydroxy ng/mL non-numeric Juan C's results) [facility]) ID Date Data Source [id number] 09/22/2019 12:00:00 AM EST MEDGEN (St [facility]) Name Value Range Interpretation Code Description Data Supporting Source(s) Document(s ) Albumin, 693.2 Normal (applies to MEDGEN (St Urine ug/mL non-numeric Juan C's results) [facility]) Alb/Creat 394.1 mg/g Above high normal MEDGEN (St Ratio creat [facility]) ID Date Data Source [id number] 09/22/2019 12:00:00 AM EST MEDGEN ([facility]) Name Value Range Interpretation Description Data Sup porting Code Source(s) Document(s ) Free [place] 141.85 Above high normal MEDGEN (St Lt mg/L Juan C's [facility] [place] 1.28 Normal (applies to MEDGEN (S t a Ratio,U non-numeric Juan C's results) [facility], ) Free [place] 110.44 Above high normal MEDGEN (St Lt mg/L [facility]) Free [place] 476.00 Above high normal MEDGEN (St Lt mg/L [facility]) [place] 10.70 Above high normal MEDGEN (St a Ratio,U [facility]) Free Lambda 44.50 mg/L Above high normal MEDGEN (S t Lt Juan C's [facility]) ID Date Data Source [id number] 09/22/2019 12:00:00 AM EST [facility] ([facility], ) Name Value Range Interpretation Description Data Sup porting Code Source(s) Document(s ) Free [place] 41.1 mg/L Above high normal MEDGEN (St Lt Chains,S [facility]) Free [place] 176.0 mg/L Above high normal MEDGEN (S t Lt Chains,S [facility]) [place] 0.23 Below low normal MEDGEN (St a Ratio,S [facility]) Free [place] 38.9 mg/L Above high normal MEDGEN (St Lt Chains,S [facility]) Free [place]ambda 133.0 mg/L Above high normal MEDGEN (S t Lt Chains,S [facility]) [place] 0.29 Normal (applies to MEDGEN (S t a Ratio,S non-numeric Juan C's results) [facility], ) ID Date Data Source [id number] 09/22/2019 12:00:00 AM EST [facility] ([facility], ) Name Value Range Interpretation Code Description Data Supporting Source(s) Document(s ) Creatinine 94.7 mg/dL Normal (applies to MEDGEN (S t , Urine non-numeric Juan C's results) [facility], ) Protein/Cr 1072 mg/g Above high normal MEDGEN (St eat Ratio creat Juan C's [facility], ) Creatinine 175.9 Normal (applies to MEDGEN (St , Urine mg/dL non-numeric Juan C's results) [facility], ) Protein/Cr 833 mg/g Above high normal MEDGEN (St eat Ratio creat [facility], ) ID Date Data Source [id number] 09/22/2019 12:00:00 AM EST MEDGEN (St [facility], ) Name Value Range Interpretation Description Data Sup porting Code Source(s) Document(s ) Immunoglobulin G, 3867 Above high normal MEDG EN (St Qn, Serum mg/dL [facility], ) Immunoglobulin A, 17 mg/dL Below low normal MEDGE N (St Qn, Serum [facility], ) Immunoglobulin M, 8 mg/dL Below low normal MEDGE N (St Qn, Serum [facility], ) Immunoglobulin G, 3973 Above high normal MEDG EN (St Qn, Serum mg/dL [facility], ) Immunoglobulin M, 13 mg/dL Below low normal MEDGE N (St Qn, Serum [facility], ) Immunoglobulin A, 25 mg/dL Below low normal MEDGE N (St Qn, Serum [facility], ) ID Date Data Source [id number] 09/22/2019 12:00:00 AM EST MEDGEN ([facility], ) Name Value Range Interpretation Description Data Sup porting Code Source(s) Document(s ) Iron 248 ug/dL Below low normal MEDGEN (St Bind.Cap.(TIBC Juan C's ) [facility], ) UIBC 172 ug/dL Normal (applies to MEDGEN (St non-numeric Juan C's results) [facility], ) Iron 76 ug/dL Normal (applies to MEDGEN (St [Mass/volume] non-numeric Juan C's in Serum or results) [facility], ) Plasma Iron 31 % Normal (applies to MEDGEN (St saturation non-numeric Juan C's [Mass results) [facility]) Fraction] in Serum or Plasma Iron 297 ug/dL Normal (applies to MEDGEN (St Bind.Cap.(TIBC non-numeric Juan C's ) results) [facility]) UIBC 222 ug/dL Normal (applies to MEDGEN (St non-numeric Juan C's results) [facility], ) Iron 75 ug/dL Normal (applies to MEDGEN (St [Mass/volume] non-numeric Juan C's in Serum or results) [facility], ) Plasma Iron 25 % Normal (applies to MEDGEN (St saturation non-numeric Juan C's [Mass results) Medical, ) Fraction] in Serum or Plasma ID Date Data Source [id number] 09/22/2019 12:00:00 AM EST [facility] ([facility], ) Name Value Range Interpretation Code Description Data Supporting Source(s) Document(s ) Protein,To 101.5 Normal (applies to MEDGEN (St ruth,Urine mg/dL non-numeric Juan C's results) Medical, ) Albumin, U 36.2 % Normal (applies to MEDGEN (St non-numeric Juan C's results) Medical, ) Alpha-1-Gl 5.7 % Normal (applies to MEDGEN (St obulin, U non-numeric Juan C's results) [facility], ) Alpha-2-Gl 12.8 % Normal (applies to MEDGEN (St obulin, U non-numeric Juan C's results) Medical, ) Beta 29.7 % Normal (applies to MEDGEN (St Globulin, non-numeric Juan C's U results) Medical, ) Gamma 15.6 % Normal (applies to MEDGEN (St Globulin, non-numeric Juan C's U results) Medical, ) M-Kevyn, % Comment: Normal (applies to MEDGEN (St non-numeric Juan C's results) Medical, ) PDF . Normal (applies to MEDGEN (St non-numeric Juan C's results) Medical, ) Protein,To 146.6 Normal (applies to MEDGEN (St ruth,Urine mg/dL non-numeric Juan C's results) Medical, ) Albumin, U 47.8 % Normal (applies to MEDGEN (St non-numeric Juan C's results) Medical, ) Alpha-1-Gl 3.5 % Normal (applies to MEDGEN (St obulin, U non-numeric Juan C's results) Medical, ) Alpha-2-Gl 9.6 % Normal (applies to MEDGEN (St obulin, U non-numeric Juan C's results) Medical, ) Beta 24.4 % Normal (applies to MEDGEN (St Globulin, non-numeric Juan C's U results) Medical, ) M-Kevyn, % 9.8 % Above high normal [facility] ([facility], ) Gamma 14.8 % Normal (applies to MEDGEN (St Globulin, non-numeric Juan C's U results) Medical, ) PDF . Normal (applies to MEDGEN (St non-numeric Juan C's results) [facility], PC) ID Date Data Source [id number] 09/22/2019 12:00:00 AM EST MEDGEN (St [facility], ) Name Value Range Interpretation Description Data Sup porting Code Source(s) Document(s ) Microalbumin 4.0 g/dL Normal (applies MEDGEN (St [Mass/time] in to non-numeric Juan C's Urine collected results) Medical, for unspecified PC) duration Lhhod-3-Irdmwofa 0.2 g/dL Normal (applies MEDGEN (St to non-numeric Juan C's results) Medical, PC) Jctwk-3-Barmwuhs 0.8 g/dL Normal (applies MEDGEN (St to non-numeric Juan C's results) Medical, PC) Beta globulin 0.7 g/dL Normal (applies MEDGEN (St [Mass/volume] in to non-numeric Juan C's Urine by results) Medical, Electrophoresis PC) Gamma globulin 3.5 g/dL Above high normal MEDGEN (St [Mass/volume] by Juan C's Electrophoresis in Medical, Urine collected PC) for unspecified duration M-Kevyn 3.2 g/dL Above high normal MEDGEN ([facility], ) Globulin, Total 5.1 g/dL Above high normal MEDGEN ([facility], ) A/G Ratio 0.8 Normal (applies MEDGEN (St to non-numeric Juan C's results) Medical, ) PDF . Normal (applies MEDGEN (St to non-numeric Juan C's results) Medical, PC) Protein 9.0 g/dL Above high normal MEDGEN (St [Mass/volume] in Juan C's Serum or Plasma Medical, PC) Microalbumin 4.0 g/dL Normal (applies MEDGEN (St [Mass/time] in to non-numeric Juan C's Urine collected results) Medical, for unspecified PC) duration Csdeh-2-Tjmqqqyp 0.2 g/dL Normal (applies MEDGEN (St to non-numeric Juan C's results) Medical, PC) Tbgwm-8-Tfbfwvmi 0.8 g/dL Normal (applies MEDGEN (St to non-numeric Juan C's results) Medical, PC) Beta globulin 0.8 g/dL Normal (applies MEDGEN (St [Mass/volume] in to non-numeric Juan C's Urine by results) Medical, Electrophoresis PC) Gamma globulin 3.2 g/dL Above high normal MEDGEN (St [Mass/volume] by Juan C's Electrophoresis in Medical, Urine collected PC) for unspecified duration M-Kevyn 2.9 g/dL Above high normal MEDGEN ([facility], [facility]) Globulin, Total 5.0 g/dL Above high normal MEDGEN ([facility], ) A/G Ratio 0.8 Normal (applies MEDGEN (St to non-numeric Juan C's results) Medical, ) PDF . Normal (applies MEDGEN (St to non-numeric Juan C's results) Medical, ) ID Date Data Source [id number] 09/22/2019 12:00:00 AM EST MEDGEN (St [facility], ) Name Value Range Interpretation Description Data Sup porting Code Source(s) Document(s ) Specific gravity 1.015 Normal (applies MEDGEN (St of Pericardial to non-numeric Juan C's fluid by results) Medical, Refractometry PC) pH of Lower 5.0 Normal (applies MEDGEN (St respiratory to non-numeric Juan C's specimen results) Medical, PC) Urine-Color Yellow Normal (applies MEDGEN (St to non-numeric Juan C's results) Medical, PC) Appearance of Clear Normal (applies MEDGEN (St Abdomen to non-numeric Juan C's results) Medical, PC) WBC Esterase Negative Normal (applies MEDGEN (St to non-numeric Juan C's results) Medical, ) Glucose Negative Normal (applies MEDGEN (St [Mass/volume] in to non-numeric Juan C's Urine collected results) Medical, for unspecified PC) duration Protein Abnormal MEDGEN (St [Mass/volume] in (applies to Juan C's Lower non-numeric Medical, respiratory results) PC) specimen Ketones Negative Normal (applies MEDGEN (St [Presence] in to non-numeric Juan C's Blood by Tablet results) Medical, ) Occult Blood Abnormal MEDGEN (St (applies to Juan C's non-numeric Medical, results) PC) Urobilinogen,Mel 0.2 mg/dL Normal (applies MEDGEN (St i-Qn to non-numeric Juan C's results) Medical, PC) Bilirubin Negative Normal (applies MEDGEN (St [Presence] in to non-numeric Juan C's Peritoneal fluid results) Medical, ) Nitrite, Urine Negative Normal (applies MEDGEN (S t to non-numeric Juan C's results) Medical, ) Microscopic See below: Normal (applies MEDGEN (St Examination to non-numeric Juan C's results) Medical, PC) Specific gravity 1.019 Normal (applies MEDGEN (St of Pericardial to non-numeric Juan C's fluid by results) Medical, Refractometry PC) pH of Lower 5.0 Normal (applies MEDGEN (St respiratory to non-numeric Juan C's specimen results) Medical, ) Urine-Color Yellow Normal (applies MEDGEN (St to non-numeric Juan C's results) Medical, PC) Appearance of Clear Normal (applies MEDGEN (St Abdomen to non-numeric Juan C's results) Medical, PC) WBC Esterase Negative Normal (applies MEDGEN (St to non-numeric Juan C's results) Medical, PC) Glucose Negative Normal (applies MEDGEN (St [Mass/volume] in to non-numeric Juan C's Urine collected results) Medical, for unspecified PC) duration Protein Abnormal MEDGEN (St [Mass/volume] in (applies to Juan C's Lower non-numeric Medical, respiratory results) PC) specimen Ketones Negative Normal (applies MEDGEN (St [Presence] in to non-numeric Juan C's Blood by Tablet results) Medical, PC) Occult Blood Negative Normal (applies MEDGEN (St to non-numeric Juan C's results) Medical, PC) Bilirubin Negative Normal (applies MEDGEN (St [Presence] in to non-numeric Juan C's Peritoneal fluid results) Medical, ) Urobilinogen,Mel 0.2 mg/dL Normal (applies MEDGEN (St i-Qn to non-numeric Juan C's results) Medical, PC) Microscopic See below: Normal (applies MEDGEN (St Examination to non-numeric Juan C's results) Medical, PC) Nitrite, Urine Negative Normal (applies MEDGEN (S t to non-numeric Juan C's results) Medical, ) ID Date Data Source [id number] 09/22/2019 12:00:00 AM EST [facility] ([facility]) Name Value Range Interpretation Description Data Sup porting Code Source(s) Document(s ) WBC 0-5 Normal (applies MEDGEN (St to non-numeric Juan C's results) Medical, PC) RBC 3-10 Abnormal (applies MEDGEN (St to non-numeric Juan C's results) Medical, ) Epithelial 0-10 Normal (applies MEDGEN (St Cells (non to non-numeric Juan C's renal) results) Medical, ) Crystal Type Calcium Normal (applies MEDGEN (St Oxalate to non-numeric Juan C's results) Medical, ) Crystals Present Abnormal (applies MEDGEN (St [#/area] in to non-numeric Juan C's Body fluid by results) Medical, ) Light microscopy Mucus Threads Present Normal (applies MEDGEN (St to non-numeric Juan C's results) Medical, ) WBC 0-5 Normal (applies MEDGEN (St to non-numeric Juan C's results) Medical, ) Bacteria Few Normal (applies MEDGEN (St [Presence] in to non-numeric Juan C's Prostatic results) [facility], ) fluid by Light microscopy RBC 0-2 Normal (applies MEDGEN (St to non-numeric Juan C's results) Medical, ) Epithelial None seen Normal (applies MEDGEN (St Cells (non to non-numeric Juan C's renal) results) Medical, ) Casts Present Abnormal (applies MEDGEN (St [#/area] in to non-numeric Juan C's Urine results) Medical, ) sediment by Automated count Cast Type Granular Abnormal (applies MEDGEN (St casts to non-numeric Juan C's results) Medical, ) Crystals Present Abnormal (applies MEDGEN (St [#/area] in to non-numeric Juan C's Body fluid by results) Medical, ) Light microscopy Crystal Type Calcium Normal (applies MEDGEN (St Oxalate to non-numeric Juan C's results) Medical, ) Mucus Threads Present Normal (applies MEDGEN (St to non-numeric Juan C's results) Medical, ) Bacteria Few Normal (applies MEDGEN (St [Presence] in to non-numeric Juan C's Prostatic results) Medical, ) fluid by Light microscopy ID Date Data Source [id number] 09/22/2019 12:00:00 AM EST [facility] ([facility], ) Name Value Range Interpretation Description Data Sup porting Code Source(s) Document(s ) Leukocytes 11.7 Above high normal MEDGEN (St [#/volume] in x10E3/uL Juan C's Blood by Medical, ) Automated count Erythrocytes 2.47 Below lower panic MEDGEN (S t [#/volume] in x10E6/uL limits Juan C's Blood by [facility], ) Automated count Hemoglobin 8.2 g/dL Below low normal MEDGEN (St [Mass/volume] in Juan C's Blood [facility], ) Hematocrit 23.3 % Below low normal MEDGEN (St [Volume Juan C's Fraction] of [facility], ) Blood by Automated count MCV 94 fL Normal (applies MEDGEN (St to non-numeric Juan C's results) [facility], ) MCH 33.2 pg Above high normal [facility] ([facility], ) MCHC 35.2 Normal (applies MEDGEN (St g/dL to non-numeric Juan C's results) [facility]) RDW 19.0 % Above high normal [facility] ([facility], ) Platelets 198 Normal (applies MEDGEN (St [#/area] in x10E3/uL to non-numeric Juan C's Blood by results) [facility], ) Microscopy high power field Neutrophils [#] 54 % Normal (applies MEDGEN ( St in Body fluid by to non-numeric Juan C's Manual count results) [facility], ) Lymphs 13 % Normal (applies MEDGEN (St to non-numeric Juan C's results) [facility]) Monocytes 16 % Normal (applies MEDGEN (St [#/volume] in to non-numeric Juan C's Cord blood results) [facility]) Eos 11 % Normal (applies MEDGEN (St to non-numeric Juan C's results) [facility]) Neutrophils 6.4 Normal (applies MEDGEN (St (Absolute) x10E3/uL to non-numeric Juan C's results) [facility], ) Basos 1 % Normal (applies MEDGEN (St to non-numeric Juan C's results) [facility]) Lymphs 1.5 Normal (applies MEDGEN (St (Absolute) x10E3/uL to non-numeric Juan C's results) [facility]) Eos (Absolute) 1.3 Above high normal MEDGEN (St x10E3/uL Juan C's [facility], ) Monocytes(Absolu 1.9 Above high normal MEDGE N (St te) x10E3/uL [facility]) Baso (Absolute) 0.1 Normal (applies MEDGEN ( St x10E3/uL to non-numeric Juan C's results) [facility], ) Immature 5 % Normal (applies MEDGEN (St Granulocytes to non-numeric Juan C's results) [facility], ) Immature Grans 0.6 Above high normal MEDGEN (St (Abs) x10E3/uL Juan C's [facility], ) NRBC 4 % Above high normal [facility] ([facility], ) Leukocytes 11.8 Above high normal MEDGEN (St [#/volume] in x10E3/uL Juan C's Blood by [facility], ) Automated count Erythrocytes 3.28 Below low normal MEDGEN (St [#/volume] in x10E6/uL Juan C's Blood by [facility], ) Automated count Hemoglobin 10.8 Below low normal MEDGEN (St [Mass/volume] in g/dL Juan C's Blood [facility], ) Hematocrit 31.7 % Below low normal MEDGEN (St [Volume Juan C's Fraction] of [facility], ) Blood by Automated count MCV 97 fL Normal (applies MEDGEN (St to non-numeric Juan C's results) [facility], ) MCHC 34.1 Normal (applies MEDGEN (St g/dL to non-numeric Juan C's results) [facility], ) MCH 32.9 pg Normal (applies MEDGEN (St to non-numeric Juan C's results) [facility], ) RDW 17.5 % Above high normal MED[facility] ([facility], ) Neutrophils [#] 53 % Normal (applies MEDGEN ( St in Body fluid by to non-numeric Juan C's Manual count results) [facility], ) Platelets 237 Normal (applies MEDGEN (St [#/area] in x10E3/uL to non-numeric Juan C's Blood by results) [facility], ) Microscopy high power field Lymphs 20 % Normal (applies MEDGEN (St to non-numeric Juan C's results) [facility], ) Monocytes 13 % Normal (applies MEDGEN (St [#/volume] in to non-numeric Juan C's Cord blood results) [facility], ) Basos 1 % Normal (applies MEDGEN (St to non-numeric Juan C's results) [facility], ) Eos 12 % Normal (applies MEDGEN (St to non-numeric Juan C's results) [facility], ) Neutrophils 6.2 Normal (applies MEDGEN (St (Absolute) x10E3/uL to non-numeric Juan C's results) [facility], ) Lymphs 2.4 Normal (applies MEDGEN (St (Absolute) x10E3/uL to non-numeric Juan C's results) [facility], ) Monocytes(Absolu 1.5 Above high normal MEDGE N (St te) x10E3/uL [facility], ) Eos (Absolute) 1.5 Above high normal MEDGEN (St x10E3/uL [facility], ) Baso (Absolute) 0.1 Normal (applies MEDGEN ( St x10E3/uL to non-numeric Juan C's results) [facility], ) Immature 1 % Normal (applies MEDGEN (St Granulocytes to non-numeric Juan C's results) [facility]) Immature Grans 0.2 Above high normal MEDGEN (St (Abs) x10E3/uL [facility], ) Hematology Note: Normal (applies MEDGEN (St Comments: to non-numeric Juan C's results) [facility], ) Leukocytes 9.5 Normal (applies MEDGEN (St [#/volume] in x10E3/uL to non-numeric Juan C's Blood by results) [facility], ) Automated count Erythrocytes 3.28 Below low normal MEDGEN (St [#/volume] in x10E6/uL Juan C's Blood by [facility], ) Automated count Hemoglobin 10.9 Below low normal MEDGEN (St [Mass/volume] in g/dL Juan C's Blood [facility], ) Hematocrit 32.1 % Below low normal MEDGEN (St [Volume Juan C's Fraction] of [facility], ) Blood by Automated count MCV 98 fL Above high normal MEDGEN ([facility], ) MCHC 34.0 Normal (applies MEDGEN (St g/dL to non-numeric Juan C's results) [facility], ) MCH 33.2 pg Above high normal MEDGEN ([facility], ) RDW 17.3 % Above high normal [facility] ([facility], ) Platelets 240 Normal (applies MEDGEN (St [#/area] in x10E3/uL to non-numeric Juan C's Blood by results) [facility], ) Microscopy high power field Neutrophils [#] 53 % Normal (applies MEDGEN ( St in Body fluid by to non-numeric Juan C's Manual count results) [facility], ) Lymphs 19 % Normal (applies MEDGEN (St to non-numeric Juan C's results) [facility], ) Eos 11 % Normal (applies MEDGEN (St to non-numeric Juan C's results) [facility], ) Monocytes 15 % Normal (applies MEDGEN (St [#/volume] in to non-numeric Juan C's Cord blood results) [facility], ) Basos 0 % Normal (applies MEDGEN (St to non-numeric Juan C's results) [facility], ) Lymphs 1.8 Normal (applies MEDGEN (St (Absolute) x10E3/uL to non-numeric Juan C's results) [facility], ) Neutrophils 5.1 Normal (applies MEDGEN (St (Absolute) x10E3/uL to non-numeric Juan C's results) [facility], ) Monocytes(Absolu 1.5 Above high normal MEDGE N (St te) x10E3/uL [facility]) Eos (Absolute) 1.0 Above high normal MEDGEN (St x10E3/uL [facility], ) Baso (Absolute) 0.0 Normal (applies MEDGEN ( St x10E3/uL to non-numeric Juan C's results) [facility], ) Immature 2 % Normal (applies MEDGEN (St Granulocytes to non-numeric Juan C's results) [facility], ) Hematology Note: Normal (applies MEDGEN (St Comments: to non-numeric Juan C's results) [facility], ) Immature Grans 0.2 Above high normal MEDGEN (St (Abs) x10E3/uL [facility]) ID Date Data Source [id number] 09/22/2019 12:00:00 AM EST MEDGEN ([facility], ) Name Value Range Interpretation Code Description Data Lisa rce(s) Supporting Document(s ) ID Date Data Source [id number] 09/22/2019 12:00:00 AM EST MEDGEN ([facility], ) Name Value Range Interpretation Code Description Data Supporting Source(s) Document(s ) PTH, Intact 14 pg/mL Below low normal MEDGEN ([facility], ) ID Date Data Source [id number] 09/22/2019 12:00:00 AM EST MEDGEN ([facility], ) Name Value Range Interpretation Code Description Data Supporting Source(s) Document(s ) Ferritin, 329 ng/mL Normal (applies to MEDGEN (St Serum non-numeric Juan C's results) [facility]) ID Date Data Source [id number] 09/22/2019 12:00:00 AM EST [facility] ([facility] Name Value Range Interpretation Description Data Sup porting Code Source(s) Document(s ) Deprecated 4.8 mg/dL Above high normal MEDGEN (St Phosphorus Juan C's [Mass/time] in Medical, ) 24 hour Urine ID Date Data Source [id number] 09/22/2019 12:00:00 AM EST [facility] ([facility] Name Value Range Interpretation Code Description Data Lisa rce(s) Supporting Document(s ) ID Date Data Source [id number] 09/22/2019 12:00:00 AM EST [facility] ([facility] Name Value Range Interpretation Description Data Sup porting Code Source(s) Document(s ) Vitamin D, 42.8 Normal (applies to MEDGEN (St 25-Hydroxy ng/mL non-numeric Juan C's results) Medical, ) Vitamin D, 36.2 Normal (applies to MEDGEN (St 25-Hydroxy ng/mL non-numeric Juan C's results) [facility], ) ID Date Data Source [id number] 09/22/2019 12:00:00 AM EST [facility] ([facility] Name Value Range Interpretation Code Description Data Supporting Source(s) Document(s ) Albumin, 693.2 Normal (applies to MEDGEN (St Urine ug/mL non-numeric Juan C's results) Medical, ) Alb/Creat 394.1 mg/g Above high normal MEDGEN (St Ratio creat [facility], ) ID Date Data Source [id number] 09/22/2019 12:00:00 AM EST [facility] ([facility] Name Value Range Interpretation Description Data Sup porting Code Source(s) Document(s ) Free [place] 476.00 Above high normal MEDGEN (St Lt mg/L [facility], ) Free Lambda 44.50 mg/L Above high normal MEDGEN (S t Lt Juan C's [facility], ) [place] 10.70 Above high normal MEDGEN (St a Ratio,U [facility], ) ID Date Data Source [id number] 09/22/2019 12:00:00 AM EST [facility] ([facility], ) Name Value Range Interpretation Description Data Sup porting Code Source(s) Document(s ) Free [place] 38.9 mg/L Above high normal MEDGEN (St Lt Chains,S [facility], ) Free Lambda 133.0 mg/L Above high normal MEDGEN (S t Lt Chains,S [facility]) [place] 0.29 Normal (applies to MEDGEN (S t a Ratio,S non-numeric Juan C's results) [facility], ) ID Date Data Source [id number] 09/22/2019 12:00:00 AM EST MEDGEN ([facility]) Name Value Range Interpretation Code Description Data Supporting Source(s) Document(s ) Creatinine 175.9 Normal (applies to MEDGEN (St , Urine mg/dL non-numeric Juan C's results) [facility]) Protein/Cr 833 mg/g Above high normal MEDGEN (St eat Ratio creat [facility]) ID Date Data Source [id number] 09/22/2019 12:00:00 AM EST MEDGEN ([facility]) Name Value Range Interpretation Description Data Sup porting Code Source(s) Document(s ) Immunoglobulin G, 3973 Above high normal MEDG EN (St Qn, Serum mg/dL [facility]) Immunoglobulin M, 13 mg/dL Below low normal MEDGE N (St Qn, Serum [facility]) Immunoglobulin A, 25 mg/dL Below low normal MEDGE N (St Qn, Serum [facility]) ID Date Data Source [id number] 09/22/2019 12:00:00 AM EST MEDGEN ([facility], ) Name Value Range Interpretation Description Data Sup porting Code Source(s) Document(s ) UIBC 222 ug/dL Normal (applies to MEDGEN (St non-numeric Juan C's results) [facility]) Iron 297 ug/dL Normal (applies to MEDGEN (St Bind.Cap.(TIBC non-numeric Juan C's ) results) [facility]) Iron 25 % Normal (applies to MEDGEN (St saturation non-numeric Juan C's [Mass results) [facility]) Fraction] in Serum or Plasma Iron 75 ug/dL Normal (applies to MEDGEN (St [Mass/volume] non-numeric Juan C's in Serum or results) [facility], ) Plasma ID Date Data Source [id number] 09/22/2019 12:00:00 AM EST [facility] ([facility], ) Name Value Range Interpretation Code Description Data Supporting Source(s) Document(s ) Protein,To 146.6 Normal (applies to MEDGEN (St ruth,Urine mg/dL non-numeric Juan C's results) [facility]) Albumin, U 47.8 % Normal (applies to MEDGEN (St non-numeric Juan C's results) [facility]) Alpha-1-Gl 3.5 % Normal (applies to MEDGEN (St obulin, U non-numeric Juan C's results) [facility]) Beta 24.4 % Normal (applies to MEDGEN (St Globulin, non-numeric Jaun C's U results) [facility]) Alpha-2-Gl 9.6 % Normal (applies to MEDGEN (St obulin, U non-numeric [facility] C's results) [facility]) Gamma 14.8 % Normal (applies to MEDGEN (St Globulin, non-numeric Juan C's U results) [facility]) M-Kevyn, % 9.8 % Above high normal [facility] ([facility], ) PDF . Normal (applies to MEDGEN (St non-numeric Juan C's results) Medical, ) ID Date Data Source [id number] 09/22/2019 12:00:00 AM EST [facility] ([facility], ) Name Value Range Interpretation Description Data Sup porting Code Source(s) Document(s ) Protein 9.0 g/dL Above high normal MEDGEN (St [Mass/volume] in Juan C's Serum or Plasma [facility], [facility]) Microalbumin 4.0 g/dL Normal (applies MEDGEN (St [Mass/time] in to non-numeric Juan C's Urine collected results) Medical, for unspecified PC) duration Xwayr-5-Crswixba 0.8 g/dL Normal (applies MEDGEN (St to non-numeric Juan C's results) [facility]) Cqqnl-5-Pzflsgef 0.2 g/dL Normal (applies MEDGEN (St to non-numeric Juan C's results) [facility]) Beta globulin 0.8 g/dL Normal (applies MEDGEN (St [Mass/volume] in to non-numeric Juan C's Urine by results) Medical, Electrophoresis PC) Gamma globulin 3.2 g/dL Above high normal MEDGEN (St [Mass/volume] by Juan C's Electrophoresis in Medical, Urine collected ) for unspecified duration M-Kevyn 2.9 g/dL Above high normal MEDGEN ([facility], ) Globulin, Total 5.0 g/dL Above high normal MEDGEN ([facility], ) PDF . Normal (applies MEDGEN (St to non-numeric Juan C's results) Medical, ) A/G Ratio 0.8 Normal (applies MEDGEN (St to non-numeric Juan C's results) [facility], ) ID Date Data Source [id number] 09/22/2019 12:00:00 AM EST MEDGEN ([facility], ) Name Value Range Interpretation Description Data Sup porting Code Source(s) Document(s ) Specific gravity 1.019 Normal (applies MEDGEN (St of Pericardial to non-numeric Juan C's fluid by results) [facility], Refractometry ) Urine-Color Yellow Normal (applies MEDGEN (St to non-numeric Juan C's results) Medical, ) pH of Lower 5.0 Normal (applies MEDGEN (St respiratory to non-numeric Juan C's specimen results) [facility], ) Appearance of Clear Normal (applies MEDGEN (St Abdomen to non-numeric Juan C's results) Medical, ) WBC Esterase Negative Normal (applies MEDGEN (St to non-numeric Juan C's results) [facility], ) Glucose Negative Normal (applies MEDGEN (St [Mass/volume] in to non-numeric Juan C's Urine collected results) [facility], for unspecified PC) duration Protein Abnormal MEDGEN (St [Mass/volume] in (applies to Juan C's Lower non-numeric Medical, respiratory results) ) specimen Occult Blood Negative Normal (applies MEDGEN (St to non-numeric Juan C's results) Medical, ) Ketones Negative Normal (applies MEDGEN (St [Presence] in to non-numeric Juan C's Blood by Tablet results) Medical, ) Bilirubin Negative Normal (applies MEDGEN (St [Presence] in to non-numeric Juan C's Peritoneal fluid results) Medical, ) Urobilinogen,Mel 0.2 mg/dL Normal (applies MEDGEN (St i-Qn to non-numeric Juan C's results) Medical, ) Nitrite, Urine Negative Normal (applies MEDGEN (S t to non-numeric Juan C's results) [facility], ) Microscopic See below: Normal (applies MEDGEN (St Examination to non-numeric Juan C's results) [facility], ) ID Date Data Source [id number] 09/22/2019 12:00:00 AM EST [facility]GEN ( [facility], ) Name Value Range Interpretation Description Data Sup porting Code Source(s) Document(s ) WBC 0-5 Normal (applies MEDGEN (St to non-numeric Juan C's results) [facility], ) RBC 0-2 Normal (applies MEDGEN (St to non-numeric Juan C's results) [facility], ) Epithelial None seen Normal (applies MEDGEN (St Cells (non to non-numeric Juan C's renal) results) [facility], ) Casts Present Abnormal (applies MEDGEN (St [#/area] in to non-numeric Juan C's Urine results) [facility]) sediment by Automated count Crystals Present Abnormal (applies MEDGEN (St [#/area] in to non-numeric Juan C's Body fluid by results) [facility], ) Light microscopy Cast Type Granular Abnormal (applies MEDGEN (St casts to non-numeric Juan C's results) [facility], ) Mucus Threads Present Normal (applies MEDGEN (St to non-numeric Juan C's results) [facility], ) Crystal Type Calcium Normal (applies MEDGEN (St Oxalate to non-numeric Juan C's results) [facility], ) Bacteria Few Normal (applies MEDGEN (St [Presence] in to non-numeric Juan C's Prostatic results) [facility], ) fluid by Light microscopy ID Date Data Source [id number] 09/22/2019 12:00:00 AM EST MEDGEN ([facility], ) Name Value Range Interpretation Description Data Sup porting Code Source(s) Document(s ) Erythrocytes 3.28 Below low normal MEDGEN (St [#/volume] in x10E6/uL Juan C's Blood by [facility], ) Automated count Leukocytes 11.8 Above high normal MEDGEN (St [#/volume] in x10E3/uL Juan C's Blood by [facility], ) Automated count Hemoglobin 10.8 Below low normal MEDGEN (St [Mass/volume] in g/dL Juan C's Blood [facility], ) Hematocrit 31.7 % Below low normal MEDGEN (St [Volume Juan C's Fraction] of [facility], ) Blood by Automated count MCV 97 fL Normal (applies MEDGEN (St to non-numeric Juan C's results) [facility], ) MCH 32.9 pg Normal (applies MEDGEN (St to non-numeric Juan C's results) [facility]) RDW 17.5 % Above high normal [facility]GEN ([facility], ) MCHC 34.1 Normal (applies MEDGEN (St g/dL to non-numeric Juan C's results) [facility], ) Platelets 237 Normal (applies MEDGEN (St [#/area] in x10E3/uL to non-numeric Juan C's Blood by results) [facility], ) Microscopy high power field Neutrophils [#] 53 % Normal (applies MEDGEN ( St in Body fluid by to non-numeric Juan C's Manual count results) [facility], ) Monocytes 13 % Normal (applies MEDGEN (St [#/volume] in to non-numeric Juan C's Cord blood results) [facility], ) Lymphs 20 % Normal (applies MEDGEN (St to non-numeric Juan C's results) [facility], ) Eos 12 % Normal (applies MEDGEN (St to non-numeric Juan C's results) [facility], ) Basos 1 % Normal (applies MEDGEN (St to non-numeric Juan C's results) [facility]) Neutrophils 6.2 Normal (applies MEDGEN (St (Absolute) x10E3/uL to non-numeric Juan C's results) [facility]) Lymphs 2.4 Normal (applies MEDGEN (St (Absolute) x10E3/uL to non-numeric Juan C's results) [facility], ) Monocytes(Absolu 1.5 Above high normal MEDGE N (St te) x10E3/uL Juan C's [facility], ) Eos (Absolute) 1.5 Above high normal MEDGEN (St x10E3/uL Juan C's [facility], ) Baso (Absolute) 0.1 Normal (applies MEDGEN ( St x10E3/uL to non-numeric Juan C's results) [facility], ) Immature 1 % Normal (applies MEDGEN (St Granulocytes to non-numeric Juan C's results) [facility]) Immature Grans 0.2 Above high normal MEDGEN (St (Abs) x10E3/uL Juan C's [facility], ) Hematology Note: Normal (applies MEDGEN (St Comments: to non-numeric Juan C's results) [facility]) Erythrocytes 3.28 Below low normal MEDGEN (St [#/volume] in x10E6/uL Juan C's Blood by [facility]) Automated count Leukocytes 9.5 Normal (applies MEDGEN (St [#/volume] in x10E3/uL to non-numeric Juan C's Blood by results) [facility]) Automated count Hematocrit 32.1 % Below low normal MEDGEN (St [Volume Juan C's Fraction] of [facility]) Blood by Automated count Hemoglobin 10.9 Below low normal MEDGEN (St [Mass/volume] in g/dL Juan C's Blood [facility]) MCV 98 fL Above high normal [facility] ([facility], ) MCH 33.2 pg Above high normal [facility] ([facility]) MCHC 34.0 Normal (applies MEDGEN (St g/dL to non-numeric Juna C's results) [facility]) RDW 17.3 % Above high normal MEDGEN ([facility], ) Neutrophils [#] 53 % Normal (applies MEDGEN ( St in Body fluid by to non-numeric Juan C's Manual count results) [facility]) Platelets 240 Normal (applies MEDGEN (St [#/area] in x10E3/uL to non-numeric Juan C's Blood by results) [facility]) Microscopy high power field Lymphs 19 % Normal (applies MEDGEN (St to non-numeric Juan C's results) [facility]) Monocytes 15 % Normal (applies MEDGEN (St [#/volume] in to non-numeric Juan C's Cord blood results) [facility]) Basos 0 % Normal (applies MEDGEN (St to non-numeric Juan C's results) [facility]) Eos 11 % Normal (applies MEDGEN (St to non-numeric Juan C's results) [facility]) Lymphs 1.8 Normal (applies MEDGEN (St (Absolute) x10E3/uL to non-numeric Juan C's results) [facility]) Neutrophils 5.1 Normal (applies MEDGEN (St (Absolute) x10E3/uL to non-numeric Juan C's results) [facility]) Monocytes(Absolu 1.5 Above high normal MEDGE N (St te) x10E3/uL [facility]) Eos (Absolute) 1.0 Above high normal MEDGEN (St x10E3/uL [facility]) Baso (Absolute) 0.0 Normal (applies MEDGEN ( St x10E3/uL to non-numeric Juan C's results) [facility], [facility]) Immature 2 % Normal (applies MEDGEN (St Granulocytes to non-numeric Juan C's results) [facility], [facility]) Immature Grans 0.2 Above high normal MEDGEN (St (Abs) x10E3/uL [facility]) Hematology Note: Normal (applies MEDGEN (St Comments: to non-numeric Juan C's results) [facility], [facility]) ID Date Data Source [id number] 09/22/2019 12:00:00 AM EST [facility] ([facility]) Name Value Range Interpretation Code Description Data Lisa rce(s) Supporting Document(s ) ID Date Data Source [id number] 09/22/2019 12:00:00 AM EST [facility] ([facility]) Name Value Range Interpretation Code Description Data Supporting Source(s) Document(s ) PTH, Intact 14 pg/mL Below low normal [facility] ([facility]) ID Date Data Source [id number] 09/22/2019 12:00:00 AM EST [facility] ([facility]) Name Value Range Interpretation Code Description Data Lisa rce(s) Supporting Document(s ) ID Date Data Source [id number] 09/22/2019 12:00:00 AM EST [facility] ([facility] Name Value Range Interpretation Code Description Data Supporting Source(s) Document(s ) PTH, Intact 14 pg/mL Below low normal [facility] ([facility]) ID Date Data Source [id number] 09/22/2019 12:00:00 AM EST [facility] ([facility] Name Value Range Interpretation Code Description Data Supporting Source(s) Document(s ) Ferritin, 329 ng/mL Normal (applies to MEDGEN (St Serum non-numeric Juan C's results) [facility], PC) ID Date Data Source [id number] 09/22/2019 12:00:00 AM EST [facility] ([facility]) Name Value Range Interpretation Description Data Sup porting Code Source(s) Document(s ) Deprecated 4.8 mg/dL Above high normal MEDGEN (St Phosphorus Juan C's [Mass/time] in Medical, ) 24 hour Urine ID Date Data Source [id number] 09/22/2019 12:00:00 AM EST [facility] ([facility], ) Name Value Range Interpretation Code Description Data Lisa rce(s) Supporting Document(s ) RAGINI Normal (applies to MEDGEN (St Interpreta non-numeric results) Juan [facility]'s M edical, tion:U PC) ID Date Data Source [id number] 09/22/2019 12:00:00 AM EST MEDGEN ([facility], ) Name Value Range Interpretation Description Data Sup porting Code Source(s) Document(s ) Vitamin D, 36.2 Normal (applies to MEDGEN (St 25-Hydroxy ng/mL non-numeric Juan C's results) [facility], ) ID Date Data Source [id number] 09/22/2019 12:00:00 AM EST MEDGEN ([facility], ) Name Value Range Interpretation Code Description Data Supporting Source(s) Document(s ) Albumin, 693.2 Normal (applies to MEDGEN (St Urine ug/mL non-numeric Juan C's results) [facility], ) Alb/Creat 394.1 mg/g Above high normal MEDGEN (St Ratio creat [facility], ) ID Date Data Source [id number] 09/22/2019 12:00:00 AM EST MEDGEN ([facility], ) Name Value Range Interpretation Description Data Sup porting Code Source(s) Document(s ) Free [place] 476.00 Above high normal MEDGEN (St Lt mg/L Juan C's Chains,[facility], ) Free Lambda 44.50 mg/L Above high normal MEDGEN (S t Lt Juan C's Chains,[facility], ) [place] 10.70 Above high normal MEDGEN (St a Ratio,U [facility], ) ID Date Data Source [id number] 09/22/2019 12:00:00 AM EST MEDGEN ([facility], ) Name Value Range Interpretation Description Data Sup porting Code Source(s) Document(s ) Free [place] 38.9 mg/L Above high normal MEDGEN (St Lt Chains,S [facility], ) Free Lambda 133.0 mg/L Above high normal MEDGEN (S t Lt Chains,S [facility]) [place] 0.29 Normal (applies to MEDGEN (S t a Ratio,S non-numeric Juan C's results) [facility] [facility]) ID Date Data Source [id number] 09/22/2019 12:00:00 AM EST MEDGEN ([facility]) Name Value Range Interpretation Code Description Data Supporting Source(s) Document(s ) Creatinine 175.9 Normal (applies to MEDGEN (St , Urine mg/dL non-numeric Juan C's results) [facility]) Protein/Cr 833 mg/g Above high normal MEDGEN (St eat Ratio creat [facility]) ID Date Data Source [id number] 09/22/2019 12:00:00 AM EST MEDGEN ([facility]) Name Value Range Interpretation Description Data Sup porting Code Source(s) Document(s ) Immunofixation Normal (applies MEDGEN (S t Result, Serum to non-numeric Juan C's results) [facility]) Immunoglobulin G, 3973 Above high normal MEDG EN (St Qn, Serum mg/dL [facility]) Immunoglobulin A, 25 mg/dL Below low normal MEDGE N (St Qn, Serum [facility]) Immunoglobulin M, 13 mg/dL Below low normal MEDGE N (St Qn, Serum [facility]) ID Date Data Source [id number] 09/22/2019 12:00:00 AM EST MEDGEN ([facility]) Name Value Range Interpretation Description Data Sup porting Code Source(s) Document(s ) Iron 297 ug/dL Normal (applies to MEDGEN (St Bind.Cap.(TIBC non-numeric Juan C's ) results) [facility]) UIBC 222 ug/dL Normal (applies to MEDGEN (St non-numeric Juan C's results) [facility]) Iron 75 ug/dL Normal (applies to MEDGEN (St [Mass/volume] non-numeric Juan C's in Serum or results) [facility]) Plasma Iron 25 % Normal (applies to MEDGEN (St saturation non-numeric Juan C's [Mass results) [facility]) Fraction] in Serum or Plasma ID Date Data Source [id number] 09/22/2019 12:00:00 AM EST MEDGEN ([facility]) Name Value Range Interpretation Description Data Sup porting Code Source(s) Document(s ) Protein,Tot 146.6 Normal (applies to MEDGEN (S t al,Urine mg/dL non-numeric Juan C's results) [facility]) Albumin, U 47.8 % Normal (applies to MEDGEN (St non-numeric Juan C's results) [facility], [facility]) Alpha-1-Nadine 3.5 % Normal (applies to MEDGEN (S t bulin, U non-numeric Juan C's results) [facility], [facility]) Alpha-2-Nadine 9.6 % Normal (applies to MEDGEN (S t bulin, U non-numeric Juan C's results) [facility], [facility]) Beta 24.4 % Normal (applies to MEDGEN (St Globulin, U non-numeric Juan C's results) [facility], [facility]) Gamma 14.8 % Normal (applies to MEDGEN (St Globulin, U non-numeric Juan C's results) Medical, ) M-Kevyn, % 9.8 % Above high normal MEDGEN ([facility], ) Please Normal (applies to MEDGEN (St note: non-numeric Juan C's results) [facility], [facility]) PDF . Normal (applies to MEDGEN (St non-numeric Juan C's results) Medical, ) ID Date Data Source [id number] 09/22/2019 12:00:00 AM EST MEDGEN (St [facility], ) Name Value Range Interpretation Description Data Sup porting Code Source(s) Document(s ) Protein 9.0 g/dL Above high normal MEDGEN (St [Mass/volume] in Juan C's Serum or Plasma [facility], [facility]) Microalbumin 4.0 g/dL Normal (applies MEDGEN (St [Mass/time] in to non-numeric Juan C's Urine collected results) Medical, for unspecified PC) duration Rxstp-4-Foezlhrk 0.2 g/dL Normal (applies MEDGEN (St to non-numeric Juan C's results) [facility], [facility]) Cdugz-7-Asruijhg 0.8 g/dL Normal (applies MEDGEN (St to non-numeric Juan C's results) Medical, PC) Beta globulin 0.8 g/dL Normal (applies MEDGEN (St [Mass/volume] in to non-numeric Juan C's Urine by results) Medical, Electrophoresis PC) Gamma globulin 3.2 g/dL Above high normal MEDGEN (St [Mass/volume] by Juan C's Electrophoresis in Medical, Urine collected PC) for unspecified duration M-Kevyn 2.9 g/dL Above high normal MEDGEN ([facility], ) Globulin, Total 5.0 g/dL Above high normal MEDGEN ([facility], ) A/G Ratio 0.8 Normal (applies MEDGEN (St to non-numeric Juan C's results) Medical, ) Please note: Normal (applies MEDGEN (St to non-numeric Juan C's results) Medical, ) PDF . Normal (applies MEDGEN (St to non-numeric Juan C's results) Medical, ) ID Date Data Source [id number] 09/22/2019 12:00:00 AM EST MEDGEN ([facility], ) Name Value Range Interpretation Description Data Sup porting Code Source(s) Document(s ) Specific gravity 1.019 Normal (applies MEDGEN (St of Pericardial to non-numeric Juan C's fluid by results) [facility], Refractometry PC) pH of Lower 5.0 Normal (applies MEDGEN (St respiratory to non-numeric Juan C's specimen results) Medical, ) Urine-Color Yellow Normal (applies MEDGEN (St to non-numeric Juan C's results) Medical, ) Appearance of Clear Normal (applies MEDGEN (St Abdomen to non-numeric Juan C's results) Medical, ) WBC Esterase Negative Normal (applies MEDGEN (St to non-numeric Juan C's results) Medical, ) Protein Abnormal MEDGEN (St [Mass/volume] in (applies to Juan C's Lower non-numeric Medical, respiratory results) ) specimen Glucose Negative Normal (applies MEDGEN (St [Mass/volume] in to non-numeric Juan C's Urine collected results) [facility], for unspecified PC) duration Ketones Negative Normal (applies MEDGEN (St [Presence] in to non-numeric Juan C's Blood by Tablet results) Medical, ) Occult Blood Negative Normal (applies MEDGEN (St to non-numeric Juan C's results) Medical, ) Bilirubin Negative Normal (applies MEDGEN (St [Presence] in to non-numeric Juan C's Peritoneal fluid results) Medical, ) Urobilinogen,Mel 0.2 mg/dL Normal (applies MEDGEN (St i-Qn to non-numeric Juan C's results) Medical, ) Nitrite, Urine Negative Normal (applies MEDGEN (S t to non-numeric Juan C's results) [facility], ) Microscopic See below: Normal (applies MEDGEN (St Examination to non-numeric Juan C's results) [facility], ) ID Date Data Source [id number] 09/22/2019 12:00:00 AM EST MEDGEN ([facility], ) Name Value Range Interpretation Description Data Sup porting Code Source(s) Document(s ) WBC 0-5 Normal (applies MEDGEN (St to non-numeric Juan C's results) Medical, ) RBC 0-2 Normal (applies MEDGEN (St to non-numeric Juan C's results) [facility], ) Epithelial None seen Normal (applies MEDGEN (St Cells (non to non-numeric Juan C's renal) results) [facility], ) Casts Present Abnormal (applies MEDGEN (St [#/area] in to non-numeric Juan C's Urine results) Medical, ) sediment by Automated count Cast Type Granular Abnormal (applies MEDGEN (St casts to non-numeric Juan C's results) [facility], ) Crystals Present Abnormal (applies MEDGEN (St [#/area] in to non-numeric Juan C's Body fluid by results) [facility], ) Light microscopy Crystal Type Calcium Normal (applies MEDGEN (St Oxalate to non-numeric Juan C's results) [facility], ) Mucus Threads Present Normal (applies MEDGEN (St to non-numeric Juan C's results) [facility], ) Bacteria Few Normal (applies MEDGEN (St [Presence] in to non-numeric Jaun C's Prostatic results) Medical, ) fluid by Light microscopy ID Date Data Source [id number] 09/22/2019 12:00:00 AM EST MEDGEN (St [facility], ) Name Value Range Interpretation Description Data Sup porting Code Source(s) Document(s ) Leukocytes 9.5 Normal (applies MEDGEN (St [#/volume] in x10E3/uL to non-numeric Juan C's Blood by results) Medical, ) Automated count Erythrocytes 3.28 Below low normal MEDGEN (St [#/volume] in x10E6/uL Juan C's Blood by [facility], ) Automated count Hemoglobin 10.9 Below low normal MEDGEN (St [Mass/volume] in g/dL Juan C's Blood [facility], ) Hematocrit 32.1 % Below low normal MEDGEN (St [Volume Juan C's Fraction] of [facility]) Blood by Automated count MCV 98 fL Above high normal [facility] ([facility]) MCH 33.2 pg Above high normal MEDGEN ([facility]) MCHC 34.0 Normal (applies MEDGEN (St g/dL to non-numeric Juan C's results) [facility]) RDW 17.3 % Above high normal MEDGEN ([facility]) Platelets 240 Normal (applies MEDGEN (St [#/area] in x10E3/uL to non-numeric Juan C's Blood by results) [facility]) Microscopy high power field Neutrophils [#] 53 % Normal (applies MEDGEN ( St in Body fluid by to non-numeric Juan C's Manual count results) [facility]) Lymphs 19 % Normal (applies MEDGEN (St to non-numeric Juan C's results) [facility]) Monocytes 15 % Normal (applies MEDGEN (St [#/volume] in to non-numeric Juan C's Cord blood results) [facility]) Eos 11 % Normal (applies MEDGEN (St to non-numeric Juan C's results) [facility]) Basos 0 % Normal (applies MEDGEN (St to non-numeric Juan C's results) [facility]) Neutrophils 5.1 Normal (applies MEDGEN (St (Absolute) x10E3/uL to non-numeric Juan C's results) [facility]) Lymphs 1.8 Normal (applies MEDGEN (St (Absolute) x10E3/uL to non-numeric Juan C's results) [facility]) Monocytes(Absolu 1.5 Above high normal MEDGE N (St te) x10E3/uL [facility]'s [facility]) Eos (Absolute) 1.0 Above high normal MEDGEN (St x10E3/uL [facility]'s [facility]) Baso (Absolute) 0.0 Normal (applies MEDGEN ( St x10E3/uL to non-numeric Juan C's results) [facility]) Immature 2 % Normal (applies MEDGEN (St Granulocytes to non-numeric Juan C's results) [facility]) Immature Grans 0.2 Above high normal MEDGEN (St (Abs) x10E3/uL [facility]'s [facility]) Hematology Note: Normal (applies MEDGEN (St Comments: to non-numeric Juan C's results) Medical, ) ID Date Data Source [id number] 09/22/2019 12:00:00 AM EST MEDGEN ([facility], ) Name Value Range Interpretation Code Description Data Lisa rce(s) Supporting Document(s ) ID Date Data Source [id number] 09/22/2019 12:00:00 AM EST MEDGEN ([facility], ) Name Value Range Interpretation Code Description Data Supporting Source(s) Document(s ) PTH, Intact 14 pg/mL Below low normal MEDGEN ([facility], ) ID Date Data Source [id number] 09/22/2019 12:00:00 AM EST MEDGEN ([facility], ) Name Value Range Interpretation Code Description Data Supporting Source(s) Document(s ) Ferritin, 329 ng/mL Normal (applies to MEDGEN (St Serum non-numeric Juan C's results) Medical, ) ID Date Data Source [id number] 09/22/2019 12:00:00 AM EST MEDGEN ([facility], ) Name Value Range Interpretation Description Data Sup porting Code Source(s) Document(s ) Deprecated 4.8 mg/dL Above high normal MEDGEN (St Phosphorus Juan C's [Mass/time] in Medical, ) 24 hour Urine ID Date Data Source [id number] 09/22/2019 12:00:00 AM EST MEDGEN ([facility], ) Name Value Range Interpretation Code Description Data Lisa rce(s) Supporting Document(s ) ID Date Data Source [id number] 09/22/2019 12:00:00 AM EST MEDGEN ([facility], ) Name Value Range Interpretation Description Data Sup porting Code Source(s) Document(s ) Vitamin D, 36.2 Normal (applies to MEDGEN (St 25-Hydroxy ng/mL non-numeric Juan C's results) Medical, ) ID Date Data Source [id number] 09/22/2019 12:00:00 AM EST MEDGEN (St [facility], ) Name Value Range Interpretation Code Description Data Supporting Source(s) Document(s ) Albumin, 693.2 Normal (applies to MEDGEN (St Urine ug/mL non-numeric Juan C's results) Medical, ) Alb/Creat 394.1 mg/g Above high normal MEDGEN (St Ratio creat [facility], ) ID Date Data Source [id number] 09/22/2019 12:00:00 AM EST MEDGEN ([facility], ) Name Value Range Interpretation Description Data Sup porting Code Source(s) Document(s ) Free [place] 476.00 Above high normal MEDGEN (St Lt mg/L Juan C's [facility], [facility]) Free Lambda 44.50 mg/L Above high normal MEDGEN (S t Lt Juan C's [facility], [facility]) [place] 10.70 Above high normal MEDGEN (St a Ratio,U [facility], ) ID Date Data Source [id number] 09/22/2019 12:00:00 AM EST [facility]GEN ([facility], ) Name Value Range Interpretation Description Data Sup porting Code Source(s) Document(s ) Free [place] 38.9 mg/L Above high normal MEDGEN (St Lt Chains,S [facility] Medical, [facility]) Free Lambda 133.0 mg/L Above high normal MEDGEN (S t Lt Chains,S [facility], [facility]) [place] 0.29 Normal (applies to MEDGEN (S t a Ratio,S non-numeric Juan C's results) [facility], ) ID Date Data Source [id number] 09/22/2019 12:00:00 AM EST [facility]GEN ([facility], ) Name Value Range Interpretation Code Description Data Supporting Source(s) Document(s ) Creatinine 175.9 Normal (applies to MEDGEN (St , Urine mg/dL non-numeric Juan C's results) [facility], ) Protein/Cr 833 mg/g Above high normal MEDGEN (St eat Ratio creat [facility], ) ID Date Data Source [id number] 09/22/2019 12:00:00 AM EST MEDGEN ([facility], ) Name Value Range Interpretation Description Data Sup porting Code Source(s) Document(s ) Immunoglobulin G, 3973 Above high normal MEDG EN (St Qn, Serum mg/dL [facility], ) Immunoglobulin A, 25 mg/dL Below low normal MEDGE N (St Qn, Serum [facility], ) Immunoglobulin M, 13 mg/dL Below low normal MEDGE N (St Qn, Serum Juan C's [facility], ) ID Date Data Source [id number] 09/22/2019 12:00:00 AM EST MEDGEN ([facility], ) Name Value Range Interpretation Description Data Sup porting Code Source(s) Document(s ) Iron 297 ug/dL Normal (applies to MEDGEN (St Bind.Cap.(TIBC non-numeric Juan C's ) results) [facility], ) UIBC 222 ug/dL Normal (applies to MEDGEN (St non-numeric Juan C's results) [facility], ) Iron 25 % Normal (applies to MEDGEN (St saturation non-numeric Juan C's [Mass results) [facility]) Fraction] in Serum or Plasma Iron 75 ug/dL Normal (applies to MEDGEN (St [Mass/volume] non-numeric Juan C's in Serum or results) [facility], ) Plasma ID Date Data Source [id number] 09/22/2019 12:00:00 AM EST MEDGEN ([facility], ) Name Value Range Interpretation Code Description Data Supporting Source(s) Document(s ) Albumin, U 47.8 % Normal (applies to MEDGEN (St non-numeric Juan C's results) [facility], ) Protein,To 146.6 Normal (applies to MEDGEN (St ruth,Urine mg/dL non-numeric Juan C's results) [facility], ) Alpha-1-Gl 3.5 % Normal (applies to MEDGEN (St obulin, U non-numeric Juan C's results) [facility]) Alpha-2-Gl 9.6 % Normal (applies to MEDGEN (St obulin, U non-numeric Juan C's results) [facility], ) Gamma 14.8 % Normal (applies to MEDGEN (St Globulin, non-numeric Juan C's U results) [facility]) Beta 24.4 % Normal (applies to MEDGEN (St Globulin, non-numeric Juan C's U results) [facility], ) M-Kevyn, % 9.8 % Above high normal [facility] ([facility], ) PDF . Normal (applies to MEDGEN (St non-numeric Juan C's results) [facility]) ID Date Data Source [id number] 09/22/2019 12:00:00 AM EST MEDGEN ([facility], ) Name Value Range Interpretation Description Data Sup porting Code Source(s) Document(s ) Protein 9.0 g/dL Above high normal MEDGEN (St [Mass/volume] in Juan C's Serum or Plasma Medical, ) [place]-4-Gpmochpq 0.2 g/dL Normal (applies MEDGEN (St to non-numeric Juan C's results) Medical, ) Microalbumin 4.0 g/dL Normal (applies MEDGEN (St [Mass/time] in to non-numeric Juan C's Urine collected results) Medical, for unspecified PC) duration Oioeu-5-Rjaricil 0.8 g/dL Normal (applies MEDGEN (St to non-numeric Juan C's results) Medical, ) Beta globulin 0.8 g/dL Normal (applies MEDGEN (St [Mass/volume] in to non-numeric Juan C's Urine by results) Medical, Electrophoresis ) Gamma globulin 3.2 g/dL Above high normal MEDGEN (St [Mass/volume] by [facility] Electrophoresis in [facility], Urine collected ) for unspecified duration M-Kevyn 2.9 g/dL Above high normal MEDGEN ([facility], ) Globulin, Total 5.0 g/dL Above high normal MEDGEN ([facility], ) A/G Ratio 0.8 Normal (applies MEDGEN (St to non-numeric Juan C's results) [facility], ) PDF . Normal (applies MEDGEN (St to non-numeric Juan C's results) [facility], ) ID Date Data Source [id number] 09/22/2019 12:00:00 AM EST MEDGEN ([facility], ) Name Value Range Interpretation Description Data Sup porting Code Source(s) Document(s ) Specific gravity 1.019 Normal (applies MEDGEN (St of Pericardial to non-numeric Juan C's fluid by results) Medical, Refractometry ) pH of Lower 5.0 Normal (applies MEDGEN (St respiratory to non-numeric Juan C's specimen results) Medical, ) Urine-Color Yellow Normal (applies MEDGEN (St to non-numeric Juan C's results) Medical, ) Appearance of Clear Normal (applies MEDGEN (St Abdomen to non-numeric Juan C's results) Medical, ) WBC Esterase Negative Normal (applies MEDGEN (St to non-numeric Juan C's results) Medical, ) Protein Abnormal MEDGEN (St [Mass/volume] in (applies to Juan C's Lower non-numeric Medical, respiratory results) PC) specimen Glucose Negative Normal (applies MEDGEN (St [Mass/volume] in to non-numeric Juan C's Urine collected results) Medical, for unspecified PC) duration Ketones Negative Normal (applies MEDGEN (St [Presence] in to non-numeric Juan C's Blood by Tablet results) Medical, PC) Occult Blood Negative Normal (applies MEDGEN (St to non-numeric Juan C's results) Medical, PC) Bilirubin Negative Normal (applies MEDGEN (St [Presence] in to non-numeric Juan C's Peritoneal fluid results) Medical, PC) Urobilinogen,Mel 0.2 mg/dL Normal (applies MEDGEN (St i-Qn to non-numeric Juan C's results) Medical, PC) Nitrite, Urine Negative Normal (applies MEDGEN (S t to non-numeric Juan C's results) Medical, PC) Microscopic See below: Normal (applies MEDGEN (St Examination to non-numeric Juan C's results) Medical, ) ID Date Data Source [id number] 09/22/2019 12:00:00 AM EST [facility] ([facility]) Name Value Range Interpretation Description Data Sup porting Code Source(s) Document(s ) WBC 0-5 Normal (applies MEDGEN (St to non-numeric Juan C's results) Medical, PC) RBC 0-2 Normal (applies MEDGEN (St to non-numeric Juan C's results) Medical, PC) Epithelial None seen Normal (applies MEDGEN (St Cells (non to non-numeric Juan C's renal) results) Medical, PC) Casts Present Abnormal (applies MEDGEN (St [#/area] in to non-numeric Juan C's Urine results) Medical, PC) sediment by Automated count Cast Type Granular Abnormal (applies MEDGEN (St casts to non-numeric Juan C's results) Medical, PC) Crystals Present Abnormal (applies MEDGEN (St [#/area] in to non-numeric Juan C's Body fluid by results) Medical, PC) Light microscopy Crystal Type Calcium Normal (applies MEDGEN (St Oxalate to non-numeric Juan C's results) Medical, PC) Mucus Threads Present Normal (applies MEDGEN (St to non-numeric Juan C's results) Medical, PC) Bacteria Few Normal (applies MEDGEN (St [Presence] in to non-numeric Juan C's Prostatic results) [facility], ) fluid by Light microscopy ID Date Data Source [id number] 09/22/2019 12:00:00 AM EST [facility]GEN ([facility], ) Name Value Range Interpretation Description Data Sup porting Code Source(s) Document(s ) Leukocytes 9.5 Normal (applies MEDGEN (St [#/volume] in x10E3/uL to non-numeric Juan C's Blood by results) [facility], ) Automated count Erythrocytes 3.28 Below low normal MEDGEN (St [#/volume] in x10E6/uL Juan C's Blood by [facility]) Automated count Hemoglobin 10.9 Below low normal MEDGEN (St [Mass/volume] in g/dL [facility]'s Blood [facility]) Hematocrit 32.1 % Below low normal MEDGEN (St [Volume Juan C's Fraction] of [facility]) Blood by Automated count MCV 98 fL Above high normal MEDGEN ([facility], ) MCH 33.2 pg Above high normal MEDGEN ([facility]) MCHC 34.0 Normal (applies MEDGEN (St g/dL to non-numeric Juan C's results) [facility]) RDW 17.3 % Above high normal MEDGEN ([facility], ) Platelets 240 Normal (applies MEDGEN (St [#/area] in x10E3/uL to non-numeric Juan C's Blood by results) [facility]) Microscopy high power field Neutrophils [#] 53 % Normal (applies MEDGEN ( St in Body fluid by to non-numeric Juan C's Manual count results) [facility]) Lymphs 19 % Normal (applies MEDGEN (St to non-numeric Juan C's results) [facility]) Monocytes 15 % Normal (applies MEDGEN (St [#/volume] in to non-numeric Juan C's Cord blood results) [facility]) Eos 11 % Normal (applies MEDGEN (St to non-numeric Juan C's results) [facility]) Basos 0 % Normal (applies MEDGEN (St to non-numeric Juan C's results) [facility]) Neutrophils 5.1 Normal (applies MEDGEN (St (Absolute) x10E3/uL to non-numeric Juan C's results) [facility]) Monocytes(Absolu 1.5 Above high normal MEDGE N (St te) x10E3/uL Juan C's Medical, ) Lymphs 1.8 Normal (applies MEDGEN (St (Absolute) x10E3/uL to non-numeric Juan C's results) Medical, ) Eos (Absolute) 1.0 Above high normal MEDGEN (St x10E3/uL [facility] Medical, PC) Baso (Absolute) 0.0 Normal (applies MEDGEN ( St x10E3/uL to non-numeric Juan C's results) Medical, PC) Immature 2 % Normal (applies MEDGEN (St Granulocytes to non-numeric Juan C's results) Medical, ) Immature Grans 0.2 Above high normal MEDGEN (St (Abs) x10E3/uL [facility], ) Hematology Note: Normal (applies MEDGEN (St Comments: to non-numeric Juan C's results) Medical, ) ID Date Data Source [id number] 09/22/2019 12:00:00 AM EST [facility] ([facility], ) Name Value Range Interpretation Code Description Data Lisa rce(s) Supporting Document(s ) ID Date Data Source [id number] 09/22/2019 12:00:00 AM EST [facility]GEN ([facility] ) Name Value Range Interpretation Code Description Data Supporting Source(s) Document(s ) PTH, Intact 14 pg/mL Below low normal [facility] ([facility]) ID Date Data Source [id number] 09/22/2019 12:00:00 AM EST [facility] ([facility] ) Name Value Range Interpretation Code Description Data Supporting Source(s) Document(s ) Ferritin, 329 ng/mL Normal (applies to MEDGEN (St Serum non-numeric [facility] results) [facility], ) ID Date Data Source [id number] 09/22/2019 12:00:00 AM EST [facility] ([facility]) Name Value Range Interpretation Description Data Sup porting Code Source(s) Document(s ) Deprecated 4.8 mg/dL Above high normal MEDGEN (St Phosphorus [facility] [Mass/time] in Medical, ) 24 hour Urine ID Date Data Source [id number] 09/22/2019 12:00:00 AM EST [facility] ([facility]) Name Value Range Interpretation Code Description Data Lisa rce(s) Supporting Document(s ) ID Date Data Source [id number] 09/22/2019 12:00:00 AM EST [facility] ([facility]) Name Value Range Interpretation Description Data Sup porting Code Source(s) Document(s ) Vitamin D, 36.2 Normal (applies to MEDGEN (St 25-Hydroxy ng/mL non-numeric [facility] results) Medical, ) ID Date Data Source [id number] 09/22/2019 12:00:00 AM EST [facility] ([facility]) Name Value Range Interpretation Code Description Data Supporting Source(s) Document(s ) Albumin, 693.2 Normal (applies to MEDGEN (St Urine ug/mL non-numeric [facility] results) Medical, ) Alb/Creat 394.1 mg/g Above high normal MEDGEN (St Ratio creat [facility]) ID Date Data Source [id number] 09/22/2019 12:00:00 AM EST [facility] ([facility]) Name Value Range Interpretation Description Data Sup porting Code Source(s) Document(s ) Free [place] 476.00 Above high normal MEDGEN (St Lt mg/L [facility]) Free Lambda 44.50 mg/L Above high normal MED[facility] (S t Lt [facility]) [place] 10.70 Above high normal MEDGEN (St a Ratio,U [facility]) ID Date Data Source [id number] 09/22/2019 12:00:00 AM EST [facility] ([facility]) Name Value Range Interpretation Description Data Sup porting Code Source(s) Document(s ) Free [place] 38.9 mg/L Above high normal MEDGEN (St Lt Chains,S [facility]) [place] 0.29 Normal (applies to MEDGEN (S t a Ratio,S non-numeric [facility] results) Medical, ) Free Lambda 133.0 mg/L Above high normal [facility] (S t Lt [facility]) ID Date Data Source [id number] 09/22/2019 12:00:00 AM EST [facility] ([facility]) Name Value Range Interpretation Code Description Data Supporting Source(s) Document(s ) Creatinine 175.9 Normal (applies to MEDGEN (St , Urine mg/dL non-numeric [facility] results) [facility]) Protein/Cr 833 mg/g Above high normal MEDGEN (St eat Ratio creat [facility]) ID Date Data Source [id number] 09/22/2019 12:00:00 AM EST MED[facility] ([facility]) Name Value Range Interpretation Description Data Sup porting Code Source(s) Document(s ) Immunoglobulin A, 25 mg/dL Below low normal MEDGE N (St Qn, Serum [facility]) Immunoglobulin G, 3973 Above high normal MEDG EN (St Qn, Serum mg/dL [facility]) Immunoglobulin M, 13 mg/dL Below low normal MEDGE N (St Qn, Serum [facility]) ID Date Data Source [id number] 09/22/2019 12:00:00 AM EST MED[facility] ([facility]) Name Value Range Interpretation Description Data Sup porting Code Source(s) Document(s ) Iron 297 ug/dL Normal (applies to MEDGEN (St Bind.Cap.(TIBC non-numeric [facility] ) results) [facility], ) UIBC 222 ug/dL Normal (applies to MEDGEN (St non-numeric [facility] results) [facility]) Iron 75 ug/dL Normal (applies to MEDGEN (St [Mass/volume] non-numeric [facility] in Serum or results) [facility]) Plasma Iron 25 % Normal (applies to MEDGEN (St saturation non-numeric [facility] [Mass results) [facility]) Fraction] in Serum or Plasma ID Date Data Source [id number] 09/22/2019 12:00:00 AM EST MED[facility] ([facility]) Name Value Range Interpretation Code Description Data Supporting Source(s) Document(s ) Protein,To 146.6 Normal (applies to MEDGEN (St ruth,Urine mg/dL non-numeric [facility] results) [facility]) Alpha-1-Gl 3.5 % Normal (applies to MEDGEN (St obulin, U non-numeric [facility] results) [facility]) Albumin, U 47.8 % Normal (applies to MEDGEN (St non-numeric [facility] results) [facility]) Alpha-2-Gl 9.6 % Normal (applies to MEDGEN (St obulin, U non-numeric [facility] results) Medical, ) Beta 24.4 % Normal (applies to MEDGEN (St Globulin, non-numeric [facility] U results) Medical, ) Gamma 14.8 % Normal (applies to MEDGEN (St Globulin, non-numeric [facility] U results) Medical, ) PDF . Normal (applies to MEDGEN (St non-numeric [facility] results) Medical, ) M-Kevyn, % 9.8 % Above high normal MED[facility] ([facility], ) ID Date Data Source [id number] 09/22/2019 12:00:00 AM EST [facility] ([facility], ) Name Value Range Interpretation Description Data Sup porting Code Source(s) Document(s ) Protein 9.0 g/dL Above high normal MEDGEN (St [Mass/volume] in [facility] Serum or Plasma Medical, ) Microalbumin 4.0 g/dL Normal (applies MEDGEN (St [Mass/time] in to non-numeric [facility] Urine collected results) Medical, for unspecified PC) duration Mwdgf-3-Vdesbhgo 0.2 g/dL Normal (applies MEDGEN (St to non-numeric [facility] results) Medical, ) Flcyc-6-Acqtlsjp 0.8 g/dL Normal (applies MEDGEN (St to non-numeric [facility] results) Medical, ) Beta globulin 0.8 g/dL Normal (applies MEDGEN (St [Mass/volume] in to non-numeric [facility] Urine by results) Medical, Electrophoresis PC) Gamma globulin 3.2 g/dL Above high normal MEDGEN (St [Mass/volume] by [facility] Electrophoresis in Medical, Urine collected PC) for unspecified duration M-Kevyn 2.9 g/dL Above high normal [facility] ([facility], ) Globulin, Total 5.0 g/dL Above high normal [facility] ([facility], ) A/G Ratio 0.8 Normal (applies MEDGEN (St to non-numeric [facility] results) Medical, ) PDF . Normal (applies MEDGEN (St to non-numeric [facility] results) Medical, ) ID Date Data Source [id number] 09/22/2019 12:00:00 AM EST [facility] ([facility], ) Name Value Range Interpretation Description Data Sup porting Code Source(s) Document(s ) Specific gravity 1.019 Normal (applies MEDGEN (St of Pericardial to non-numeric [facility] fluid by results) Medical, Refractometry PC) pH of Lower 5.0 Normal (applies MEDGEN (St respiratory to non-numeric [facility] specimen results) Medical, PC) Appearance of Clear Normal (applies MEDGEN (St Abdomen to non-numeric [facility] results) Medical, PC) Urine-Color Yellow Normal (applies MEDGEN (St to non-numeric [facility] results) Medical, PC) WBC Esterase Negative Normal (applies MEDGEN (St to non-numeric [facility] results) Medical, PC) Protein Abnormal MEDGEN (St [Mass/volume] in (applies to [facility] Lower non-numeric Medical, respiratory results) PC) specimen Glucose Negative Normal (applies MEDGEN (St [Mass/volume] in to non-numeric [facility] Urine collected results) Medical, for unspecified PC) duration Ketones Negative Normal (applies MEDGEN (St [Presence] in to non-numeric [facility] Blood by Tablet results) Medical, PC) Bilirubin Negative Normal (applies MEDGEN (St [Presence] in to non-numeric [facility] Peritoneal fluid results) Medical, PC) Occult Blood Negative Normal (applies MEDGEN (St to non-numeric [facility] results) Medical, PC) Urobilinogen,Mel 0.2 mg/dL Normal (applies MEDGEN (St i-Qn to non-numeric [facility] results) Medical, PC) Nitrite, Urine Negative Normal (applies MEDGEN (S t to non-numeric [facility] results) Medical, PC) Microscopic See below: Normal (applies MEDGEN (St Examination to non-numeric [facility] results) Medical, PC) ID Date Data Source [id number] 09/22/2019 12:00:00 AM EST [facility] ([facility] ) Name Value Range Interpretation Description Data Sup porting Code Source(s) Document(s ) WBC 0-5 Normal (applies MEDGEN (St to non-numeric [facility] results) Medical, PC) RBC 0-2 Normal (applies MEDGEN (St to non-numeric [facility] results) Medical, PC) Epithelial None seen Normal (applies MEDGEN (St Cells (non to non-numeric [facility] renal) results) [facility], ) Cast Type Granular Abnormal (applies MEDGEN (St casts to non-numeric [facility] results) [facility], ) Casts Present Abnormal (applies MEDGEN (St [#/area] in to non-numeric [facility] Urine results) [facility]) sediment by Automated count Crystals Present Abnormal (applies MEDGEN (St [#/area] in to non-numeric [facility] Body fluid by results) [facility], ) Light microscopy Mucus Threads Present Normal (applies MEDGEN (St to non-numeric [facility] results) [facility], ) Crystal Type Calcium Normal (applies MEDGEN (St Oxalate to non-numeric [facility] results) [facility], ) Bacteria Few Normal (applies MEDGEN (St [Presence] in to non-numeric [facility] Prostatic results) [facility], ) fluid by Light microscopy ID Date Data Source [id number] 09/22/2019 12:00:00 AM EST [facility] ([facility], ) Name Value Range Interpretation Description Data Sup porting Code Source(s) Document(s ) Leukocytes 9.5 Normal (applies MEDGEN (St [#/volume] in x10E3/uL to non-numeric [facility] Blood by results) [facility], ) Automated count Erythrocytes 3.28 Below low normal MEDGEN (St [#/volume] in x10E6/uL [facility] Blood by [facility], ) Automated count Hematocrit 32.1 % Below low normal MEDGEN (St [Volume [facility]'s Fraction] of [facility], ) Blood by Automated count Hemoglobin 10.9 Below low normal MEDGEN (St [Mass/volume] in g/dL [facility] Blood [facility], ) MCV 98 fL Above high normal [facility] ([facility], ) MCH 33.2 pg Above high normal [facility] ([facility], ) MCHC 34.0 Normal (applies MEDGEN (St g/dL to non-numeric [facility] results) [facility]) RDW 17.3 % Above high normal [facility] ([facility], ) Platelets 240 Normal (applies MEDGEN (St [#/area] in x10E3/uL to non-numeric [facility] Blood by results) [facility], ) Microscopy high power field Neutrophils [#] 53 % Normal (applies MEDGEN ( St in Body fluid by to non-numeric [facility] Manual count results) Medical, ) Lymphs 19 % Normal (applies MEDGEN (St to non-numeric [facility]'s results) [facility], ) Eos 11 % Normal (applies MEDGEN (St to non-numeric [facility] results) [facility], ) Monocytes 15 % Normal (applies MEDGEN (St [#/volume] in to non-numeric [facility] Cord blood results) [facility], ) Neutrophils 5.1 Normal (applies MEDGEN (St (Absolute) x10E3/uL to non-numeric [facility] results) [facility], ) Basos 0 % Normal (applies MEDGEN (St to non-numeric [facility] results) [facility], ) Lymphs 1.8 Normal (applies MEDGEN (St (Absolute) x10E3/uL to non-numeric [facility] results) [facility], ) Eos (Absolute) 1.0 Above high normal MEDGEN (St x10E3/uL Juan [facility]'s [facility], ) Monocytes(Absolu 1.5 Above high normal MEDGE N (St te) x10E3/uL Juan [facility]'s [facility], ) Baso (Absolute) 0.0 Normal (applies MEDGEN ( St x10E3/uL to non-numeric [facility] results) [facility], ) Immature Grans 0.2 Above high normal MEDGEN (St (Abs) x10E3/uL [facility], ) Immature 2 % Normal (applies MEDGEN (St Granulocytes to non-numeric [facility] results) [facility], ) Hematology Note: Normal (applies MEDGEN (St Comments: to non-numeric [facility] results) [facility], ) ID Date Data Source [id number] 09/22/2019 12:00:00 AM EST [facility] ([facility], ) Name Value Range Interpretation Code Description Data Lisa rce(s) Supporting Document(s ) ID Date Data Source [id number] 09/22/2019 12:00:00 AM EST [facility] ([facility], ) Name Value Range Interpretation Code Description Data Supporting Source(s) Document(s ) PTH, Intact 14 pg/mL Below low normal [facility] ([facility], ) ID Date Data Source [id number] 09/22/2019 12:00:00 AM EST [facility] ([facility], ) Name Value Range Interpretation Code Description Data Supporting Source(s) Document(s ) Ferritin, 329 ng/mL Normal (applies to MEDGEN (St Serum non-numeric [facility] results) [facility], ) ID Date Data Source [id number] 09/22/2019 12:00:00 AM EST [facility] ([facility], ) Name Value Range Interpretation Description Data Sup porting Code Source(s) Document(s ) Deprecated 4.8 mg/dL Above high normal MEDGEN (St Phosphorus [facility] [Mass/time] in [facility], ) 24 hour Urine ID Date Data Source [id number] 09/22/2019 12:00:00 AM EST [facility] ([facility], ) Name Value Range Interpretation Code Description Data Lisa rce(s) Supporting Document(s ) ID Date Data Source [id number] 09/22/2019 12:00:00 AM EST [facility] ([facility], ) Name Value Range Interpretation Description Data Sup porting Code Source(s) Document(s ) Vitamin D, 36.2 Normal (applies to MEDGEN (St 25-Hydroxy ng/mL non-numeric [facility] results) [facility], ) ID Date Data Source [id number] 09/22/2019 12:00:00 AM EST [facility] ([facility], ) Name Value Range Interpretation Code Description Data Supporting Source(s) Document(s ) Albumin, 693.2 Normal (applies to MEDGEN (St Urine ug/mL non-numeric [facility] results) [facility], ) Alb/Creat 394.1 mg/g Above high normal MEDGEN (St Ratio creat [facility], ) ID Date Data Source [id number] 09/22/2019 12:00:00 AM EST MEDGEN ([facility], ) Name Value Range Interpretation Description Data Sup porting Code Source(s) Document(s ) Free [place] 476.00 Above high normal MEDGEN (St Lt mg/L [facility] Chains,[facility], ) Free Lambda 44.50 mg/L Above high normal MEDGEN (S t Lt [facility] Chains,[facility], ) [place] 10.70 Above high normal MEDGEN (St a Ratio,U [facility], ) ID Date Data Source [id number] 09/22/2019 12:00:00 AM EST MEDGEN ( [facility], ) Name Value Range Interpretation Description Data Sup porting Code Source(s) Document(s ) Free [place] 38.9 mg/L Above high normal MEDGEN (St Lt Chains,S [facility], ) Free Lambda 133.0 mg/L Above high normal MEDGEN (S t Lt Chains,S [facility], ) [place] 0.29 Normal (applies to MEDGEN (S t a Ratio,S non-numeric [facility] results) [facility], ) ID Date Data Source [id number] 09/22/2019 12:00:00 AM EST MEDGEN ([facility], ) Name Value Range Interpretation Code Description Data Supporting Source(s) Document(s ) Creatinine 175.9 Normal (applies to MEDGEN (St , Urine mg/dL non-numeric [facility]'s results) [facility]) Protein/Cr 833 mg/g Above high normal MEDGEN (St eat Ratio creat [facility]) ID Date Data Source [id number] 09/22/2019 12:00:00 AM EST MEDGEN ([facility], ) Name Value Range Interpretation Description Data Sup porting Code Source(s) Document(s ) Immunoglobulin G, 3973 Above high normal MEDG EN (St Qn, Serum mg/dL [facility]) Immunoglobulin A, 25 mg/dL Below low normal MEDGE N (St Qn, Serum [facility]) Immunoglobulin M, 13 mg/dL Below low normal MEDGE N (St Qn, Serum [facility]) ID Date Data Source [id number] 09/22/2019 12:00:00 AM EST MEDGEN ([facility], ) Name Value Range Interpretation Description Data Sup porting Code Source(s) Document(s ) Iron 297 ug/dL Normal (applies to MEDGEN (St Bind.Cap.(TIBC non-numeric Juan C's ) results) [facility], ) Iron 75 ug/dL Normal (applies to MEDGEN (St [Mass/volume] non-numeric Juan C's in Serum or results) [facility], ) Plasma UIBC 222 ug/dL Normal (applies to MEDGEN (St non-numeric [facility]'s results) [facility], ) Iron 25 % Normal (applies to MEDGEN (St saturation non-numeric [facility]'s [Mass results) Medical, PC) Fraction] in Serum or Plasma ID Date Data Source [id number] 09/22/2019 12:00:00 AM EST [facility] ([facility], ) Name Value Range Interpretation Code Description Data Supporting Source(s) Document(s ) Protein,To 146.6 Normal (applies to MEDGEN (St ruth,Urine mg/dL non-numeric [facility] results) Medical, PC) Albumin, U 47.8 % Normal (applies to MEDGEN (St non-numeric [facility] results) Medical, PC) Alpha-1-Gl 3.5 % Normal (applies to MEDGEN (St obulin, U non-numeric [facility] results) Medical, PC) Alpha-2-Gl 9.6 % Normal (applies to MEDGEN (St obulin, U non-numeric [facility] results) Medical, PC) Beta 24.4 % Normal (applies to MEDGEN (St Globulin, non-numeric [facility] U results) Medical, PC) Gamma 14.8 % Normal (applies to MEDGEN (St Globulin, non-numeric [facility] U results) Medical, PC) M-Kevyn, % 9.8 % Above high normal [facility] ([facility], ) PDF . Normal (applies to MEDGEN (St non-numeric [facility] results) Medical, ) ID Date Data Source [id number] 09/22/2019 12:00:00 AM EST [facility] ([facility], ) Name Value Range Interpretation Description Data Sup porting Code Source(s) Document(s ) Protein 9.0 g/dL Above high normal MEDGEN (St [Mass/volume] in [facility] Serum or Plasma Medical, PC) Microalbumin 4.0 g/dL Normal (applies MEDGEN (St [Mass/time] in to non-numeric [facility] Urine collected results) Medical, for unspecified PC) duration Rwkrb-8-Oyopthyi 0.2 g/dL Normal (applies MEDGEN (St to non-numeric [facility]'s results) Medical, PC) Beta globulin 0.8 g/dL Normal (applies MEDGEN (St [Mass/volume] in to non-numeric [facility] Urine by results) Medical, Electrophoresis PC) Hpfmd-0-Ilqgzuwm 0.8 g/dL Normal (applies MEDGEN (St to non-numeric [facility]'s results) Medical, ) Gamma globulin 3.2 g/dL Above high normal MEDGEN (St [Mass/volume] by [facility] Electrophoresis in Medical, Urine collected ) for unspecified duration M-Kevyn 2.9 g/dL Above high normal MEDGEN ([facility], ) Globulin, Total 5.0 g/dL Above high normal [facility] ([facility], ) PDF . Normal (applies MEDGEN (St to non-numeric [facility]'s results) Medical, ) A/G Ratio 0.8 Normal (applies MEDGEN (St to non-numeric [facility]'s results) Medical, ) ID Date Data Source [id number] 09/22/2019 12:00:00 AM EST MEDGEN ([facility], ) Name Value Range Interpretation Description Data Sup porting Code Source(s) Document(s ) Specific gravity 1.019 Normal (applies MEDGEN (St of Pericardial to non-numeric [facility]'s fluid by results) Medical, Refractometry ) pH of Lower 5.0 Normal (applies MEDGEN (St respiratory to non-numeric [facility]'s specimen results) Medical, ) Urine-Color Yellow Normal (applies MEDGEN (St to non-numeric [facility]'s results) Medical, ) Appearance of Clear Normal (applies MEDGEN (St Abdomen to non-numeric [facility] results) Medical, ) WBC Esterase Negative Normal (applies MEDGEN (St to non-numeric [facility]'s results) Medical, ) Glucose Negative Normal (applies MEDGEN (St [Mass/volume] in to non-numeric [facility] Urine collected results) [facility], for unspecified PC) duration Protein Abnormal MEDGEN (St [Mass/volume] in (applies to [facility] C's Lower non-numeric Medical, respiratory results) ) specimen Ketones Negative Normal (applies MEDGEN (St [Presence] in to non-numeric [facility] Blood by Tablet results) Medical, ) Bilirubin Negative Normal (applies MEDGEN (St [Presence] in to non-numeric [facility] Peritoneal fluid results) Medical, ) Occult Blood Negative Normal (applies MEDGEN (St to non-numeric [facility]'s results) Medical, ) Urobilinogen,Mel 0.2 mg/dL Normal (applies MEDGEN (St i-Qn to non-numeric [facility]'s results) Medical, ) Nitrite, Urine Negative Normal (applies MEDGEN (S t to non-numeric [facility] results) [facility], ) Microscopic See below: Normal (applies MEDGEN (St Examination to non-numeric [facility]'s results) [facility], ) ID Date Data Source [id number] 09/22/2019 12:00:00 AM EST MEDGEN ([facility], ) Name Value Range Interpretation Description Data Sup porting Code Source(s) Document(s ) WBC 0-5 Normal (applies MEDGEN (St to non-numeric [facility]'s results) Medical, ) RBC 0-2 Normal (applies MEDGEN (St to non-numeric [facility]'s results) Medical, ) Epithelial None seen Normal (applies MEDGEN (St Cells (non to non-numeric [facility] renal) results) [facility], ) Cast Type Granular Abnormal (applies MEDGEN (St casts to non-numeric [facility]'s results) Medical, ) Casts Present Abnormal (applies MEDGEN (St [#/area] in to non-numeric [facility] Urine results) [facility], ) sediment by Automated count Crystal Type Calcium Normal (applies MEDGEN (St Oxalate to non-numeric [facility]'s results) [facility], ) Crystals Present Abnormal (applies MEDGEN (St [#/area] in to non-numeric [facility] Body fluid by results) Medical, ) Light microscopy Mucus Threads Present Normal (applies MEDGEN (St to non-numeric [facility]'s results) [facility], ) Bacteria Few Normal (applies MEDGEN (St [Presence] in to non-numeric [facility] Prostatic results) Medical, ) fluid by Light microscopy ID Date Data Source [id number] 09/22/2019 12:00:00 AM EST [facility], ) Name Value Range Interpretation Description Data Sup porting Code Source(s) Document(s ) Leukocytes 9.5 Normal (applies MEDGEN (St [#/volume] in x10E3/uL to non-numeric [facility] Blood by results) [facility], ) Automated count Erythrocytes 3.28 Below low normal MEDGEN (St [#/volume] in x10E6/uL [facility] Blood by Medical, ) Automated count Hemoglobin 10.9 Below low normal MEDGEN (St [Mass/volume] in g/dL [facility] Blood [facility], ) Hematocrit 32.1 % Below low normal MEDGEN (St [Volume [facility] C's Fraction] of [facility]) Blood by Automated count MCV 98 fL Above high normal [facility] ([facility], ) MCHC 34.0 Normal (applies MEDGEN (St g/dL to non-numeric [facility]'s results) [facility]) MCH 33.2 pg Above high normal [facility] ([facility]) RDW 17.3 % Above high normal [facility] ([facility]) Neutrophils [#] 53 % Normal (applies MEDGEN ( St in Body fluid by to non-numeric Juan C's Manual count results) [facility]) Platelets 240 Normal (applies MEDGEN (St [#/area] in x10E3/uL to non-numeric Juan C's Blood by results) [facility]) Microscopy high power field Monocytes 15 % Normal (applies MEDGEN (St [#/volume] in to non-numeric Juan C's Cord blood results) [facility]) Lymphs 19 % Normal (applies MEDGEN (St to non-numeric Juan C's results) [facility]) Eos 11 % Normal (applies MEDGEN (St to non-numeric Juan C's results) [facility]) Basos 0 % Normal (applies MEDGEN (St to non-numeric Juan C's results) [facility]) Neutrophils 5.1 Normal (applies MEDGEN (St (Absolute) x10E3/uL to non-numeric Juan C's results) [facility]) Lymphs 1.8 Normal (applies MEDGEN (St (Absolute) x10E3/uL to non-numeric Juan C's results) [facility]) Monocytes(Absolu 1.5 Above high normal MEDGE N (St te) x10E3/uL Juan C's [facility]) Eos (Absolute) 1.0 Above high normal MEDGEN (St x10E3/uL Juan C's [facility]) Baso (Absolute) 0.0 Normal (applies MEDGEN ( St x10E3/uL to non-numeric Juan C's results) [facility]) Immature 2 % Normal (applies MEDGEN (St Granulocytes to non-numeric Juan C's results) [facility]) Hematology Note: Normal (applies MEDGEN (St Comments: to non-numeric Juan C's results) [facility]) Immature Grans 0.2 Above high normal MEDGEN (St (Abs) x10E3/uL [facility], ) ID Date Data Source [id number] 09/22/2019 12:00:00 AM EST MEDGEN (St [facility], ) Name Value Range Interpretation Code Description Data Supporting Source(s) Document(s ) Ferritin, 329 ng/mL Normal (applies to MEDGEN (St Serum non-numeric Juan C's results) [facility], ) ID Date Data Source [id number] 09/22/2019 12:00:00 AM EST MEDGEN ([facility], ) Name Value Range Interpretation Description Data Sup porting Code Source(s) Document(s ) Deprecated 4.8 mg/dL Above high normal MEDGEN (St Phosphorus Juan C's [Mass/time] in [facility], ) 24 hour Urine ID Date Data Source [id number] 09/22/2019 12:00:00 AM EST MEDGEN ([facility], ) Name Value Range Interpretation Code Description Data Lisa rce(s) Supporting Document(s ) ID Date Data Source [id number] 09/22/2019 12:00:00 AM EST MEDGEN ([facility], ) Name Value Range Interpretation Description Data Sup porting Code Source(s) Document(s ) Vitamin D, 42.8 Normal (applies to MEDGEN (St 25-Hydroxy ng/mL non-numeric Juan C's results) [facility], ) Vitamin D, 36.2 Normal (applies to MEDGEN (St 25-Hydroxy ng/mL non-numeric Juan C's results) [facility], ) ID Date Data Source [id number] 09/22/2019 12:00:00 AM EST MEDGEN ([facility], ) Name Value Range Interpretation Code Description Data Supporting Source(s) Document(s ) Albumin, 693.2 Normal (applies to MEDGEN (St Urine ug/mL non-numeric Juan C's results) [facility], ) Alb/Creat 394.1 mg/g Above high normal MEDGEN (St Ratio creat [facility], ) ID Date Data Source [id number] 09/22/2019 12:00:00 AM EST MEDGEN ([facility], ) Name Value Range Interpretation Description Data Sup porting Code Source(s) Document(s ) Free Lambda 44.50 mg/L Above high normal MEDGEN (S t Lt Juan C's Chains,Ur [facility], ) Free [place] 476.00 Above high normal MEDGEN (St Lt mg/L Juan C's Chains,Ur [facility], ) [place] 10.70 Above high normal MEDGEN (St a Ratio,U [facility], ) ID Date Data Source [id number] 09/22/2019 12:00:00 AM EST MEDGEN (St [facility], ) Name Value Range Interpretation Description Data Sup porting Code Source(s) Document(s ) Free [place] 38.9 mg/L Above high normal MEDGEN (St Lt Chains,S [facility], ) Free Lambda 133.0 mg/L Above high normal MEDGEN (S t Lt Chains,S [facility], ) [place] 0.29 Normal (applies to MEDGEN (S t a Ratio,S non-numeric Juan C's results) [facility], ) ID Date Data Source [id number] 09/22/2019 12:00:00 AM EST MEDGEN (St [facility], ) Name Value Range Interpretation Code Description Data Supporting Source(s) Document(s ) Creatinine 175.9 Normal (applies to MEDGEN (St , Urine mg/dL non-numeric Juan C's results) [facility], ) Protein/Cr 833 mg/g Above high normal MEDGEN (St eat Ratio creat [facility], ) ID Date Data Source [id number] 09/22/2019 12:00:00 AM EST [facility] ([facility], ) Name Value Range Interpretation Description Data Sup porting Code Source(s) Document(s ) Immunoglobulin G, 3973 Above high normal MEDG EN (St Qn, Serum mg/dL [facility], ) Immunoglobulin M, 13 mg/dL Below low normal MEDGE N (St Qn, Serum [facility], ) Immunoglobulin A, 25 mg/dL Below low normal MEDGE N (St Qn, Serum [facility], ) ID Date Data Source [id number] 09/22/2019 12:00:00 AM EST MEDGEN (St [facility], ) Name Value Range Interpretation Description Data Sup porting Code Source(s) Document(s ) Iron 297 ug/dL Normal (applies to MEDGEN (St Bind.Cap.(TIBC non-numeric Juan C's ) results) Medical, ) UIBC 222 ug/dL Normal (applies to MEDGEN (St non-numeric Juan C's results) Medical, ) Iron 75 ug/dL Normal (applies to MEDGEN (St [Mass/volume] non-numeric Juan C's in Serum or results) [facility], ) Plasma Iron 25 % Normal (applies to MEDGEN (St saturation non-numeric Juan C's [Mass results) Medical, ) Fraction] in Serum or Plasma ID Date Data Source [id number] 09/22/2019 12:00:00 AM EST MEDGEN ([facility], ) Name Value Range Interpretation Code Description Data Supporting Source(s) Document(s ) Protein,To 146.6 Normal (applies to MEDGEN (St ruth,Urine mg/dL non-numeric Juan C's results) [facility], ) Albumin, U 47.8 % Normal (applies to MEDGEN (St non-numeric Juan C's results) [facility], ) Alpha-2-Gl 9.6 % Normal (applies to MEDGEN (St obulin, U non-numeric Juan C's results) [facility], ) Alpha-1-Gl 3.5 % Normal (applies to MEDGEN (St obulin, U non-numeric Juan C's results) [facility], ) Gamma 14.8 % Normal (applies to MEDGEN (St Globulin, non-numeric Juan C's U results) [facility], ) Beta 24.4 % Normal (applies to MEDGEN (St Globulin, non-numeric Juan C's U results) [facility], ) M-Kevyn, % 9.8 % Above high normal [facility] ([facility], ) PDF . Normal (applies to MEDGEN (St non-numeric Juan C's results) [facility], ) ID Date Data Source [id number] 09/22/2019 12:00:00 AM EST MEDGEN ([facility], ) Name Value Range Interpretation Description Data Sup porting Code Source(s) Document(s ) Protein 9.0 g/dL Above high normal MEDGEN (St [Mass/volume] in Juan C's Serum or Plasma [facility], ) Microalbumin 4.0 g/dL Normal (applies MEDGEN (St [Mass/time] in to non-numeric Juan C's Urine collected results) [facility], for unspecified PC) duration Ryopr-2-Njzrkbir 0.2 g/dL Normal (applies MEDGEN (St to non-numeric Juan C's results) Medical, ) Trfau-4-Asnsbrnh 0.8 g/dL Normal (applies MEDGEN (St to non-numeric Juan C's results) Medical, ) Gamma globulin 3.2 g/dL Above high normal MEDGEN (St [Mass/volume] by [facility] Electrophoresis in Medical, Urine collected PC) for unspecified duration Beta globulin 0.8 g/dL Normal (applies MEDGEN (St [Mass/volume] in to non-numeric Juan C's Urine by results) Medical, Electrophoresis ) Globulin, Total 5.0 g/dL Above high normal MEDGEN ([facility], ) M-Kevyn 2.9 g/dL Above high normal MEDGEN ([facility], ) A/G Ratio 0.8 Normal (applies MEDGEN (St to non-numeric Juan C's results) Medical, ) PDF . Normal (applies MEDGEN (St to non-numeric Juan C's results) Medical, ) ID Date Data Source [id number] 09/22/2019 12:00:00 AM EST MEDGEN ( [facility], ) Name Value Range Interpretation Description Data Sup porting Code Source(s) Document(s ) Specific gravity 1.019 Normal (applies MEDGEN (St of Pericardial to non-numeric Juan C's fluid by results) Medical, Refractometry ) pH of Lower 5.0 Normal (applies MEDGEN (St respiratory to non-numeric Juan C's specimen results) Medical, ) Urine-Color Yellow Normal (applies MEDGEN (St to non-numeric Juan C's results) Medical, ) Appearance of Clear Normal (applies MEDGEN (St Abdomen to non-numeric Juan C's results) Medical, PC) Protein Abnormal MEDGEN (St [Mass/volume] in (applies to Juan C's Lower non-numeric Medical, respiratory results) ) specimen WBC Esterase Negative Normal (applies MEDGEN (St to non-numeric Juan C's results) Medical, ) Glucose Negative Normal (applies MEDGEN (St [Mass/volume] in to non-numeric Juan C's Urine collected results) [facility], for unspecified PC) duration Occult Blood Negative Normal (applies MEDGEN (St to non-numeric Juan C's results) Medical, ) Ketones Negative Normal (applies MEDGEN (St [Presence] in to non-numeric Juan C's Blood by Tablet results) Medical, ) Bilirubin Negative Normal (applies MEDGEN (St [Presence] in to non-numeric Juan C's Peritoneal fluid results) Medical, ) Urobilinogen,Mel 0.2 mg/dL Normal (applies MEDGEN (St i-Qn to non-numeric Juan C's results) Medical, ) Microscopic See below: Normal (applies MEDGEN (St Examination to non-numeric Juan C's results) Medical, ) Nitrite, Urine Negative Normal (applies MEDGEN (S t to non-numeric Juan C's results) Medical, ) ID Date Data Source [id number] 09/22/2019 12:00:00 AM EST [facility] ([facility], ) Name Value Range Interpretation Description Data Sup porting Code Source(s) Document(s ) RBC 0-2 Normal (applies MEDGEN (St to non-numeric Juan C's results) Medical, ) WBC 0-5 Normal (applies MEDGEN (St to non-numeric Juan C's results) Medical, ) Epithelial None seen Normal (applies MEDGEN (St Cells (non to non-numeric Juan C's renal) results) Medical, ) Casts Present Abnormal (applies MEDGEN (St [#/area] in to non-numeric Juan C's Urine results) Medical, ) sediment by Automated count Cast Type Granular Abnormal (applies MEDGEN (St casts to non-numeric Juan C's results) Medical, ) Crystal Type Calcium Normal (applies MEDGEN (St Oxalate to non-numeric Juan C's results) Medical, ) Crystals Present Abnormal (applies MEDGEN (St [#/area] in to non-numeric Juan C's Body fluid by results) Medical, ) Light microscopy Bacteria Few Normal (applies MEDGEN (St [Presence] in to non-numeric Juan C's Prostatic results) Medical, ) fluid by Light microscopy Mucus Threads Present Normal (applies MEDGEN (St to non-numeric Juan C's results) Medical, ) ID Date Data Source [id number] 09/22/2019 12:00:00 AM EST MEDGEN ([facility], ) Name Value Range Interpretation Description Data Sup porting Code Source(s) Document(s ) Erythrocytes 3.28 Below low normal MEDGEN (St [#/volume] in x10E6/uL Juan C's Blood by [facility], ) Automated count Leukocytes 11.8 Above high normal MEDGEN (St [#/volume] in x10E3/uL Juan C's Blood by [facility], ) Automated count Hematocrit 31.7 % Below low normal MEDGEN (St [Volume Juan C's Fraction] of [facility], ) Blood by Automated count Hemoglobin 10.8 Below low normal MEDGEN (St [Mass/volume] in g/dL Juan C's Blood [facility], ) MCV 97 fL Normal (applies MEDGEN (St to non-numeric Juan C's results) [facility], ) MCHC 34.1 Normal (applies MEDGEN (St g/dL to non-numeric Juan C's results) [facility], ) MCH 32.9 pg Normal (applies MEDGEN (St to non-numeric Juan C's results) [facility], ) Platelets 237 Normal (applies MEDGEN (St [#/area] in x10E3/uL to non-numeric Juan C's Blood by results) [facility], ) Microscopy high power field RDW 17.5 % Above high normal [facility] ([facility], ) Lymphs 20 % Normal (applies MEDGEN (St to non-numeric Juan C's results) [facility], ) Neutrophils [#] 53 % Normal (applies MEDGEN ( St in Body fluid by to non-numeric Juan C's Manual count results) [facility], ) Monocytes 13 % Normal (applies MEDGEN (St [#/volume] in to non-numeric Juan C's Cord blood results) [facility], ) Basos 1 % Normal (applies MEDGEN (St to non-numeric Juan C's results) [facility], ) Eos 12 % Normal (applies MEDGEN (St to non-numeric Juan C's results) [facility]) Lymphs 2.4 Normal (applies MEDGEN (St (Absolute) x10E3/uL to non-numeric Juan C's results) [facility]) Neutrophils 6.2 Normal (applies MEDGEN (St (Absolute) x10E3/uL to non-numeric Juan C's results) [facility]) Eos (Absolute) 1.5 Above high normal MEDGEN (St x10E3/uL Juan C's [facility], ) Monocytes(Absolu 1.5 Above high normal MEDGE N (St te) x10E3/uL Juan C's [facility], ) Baso (Absolute) 0.1 Normal (applies MEDGEN ( St x10E3/uL to non-numeric Juan C's results) [facility], ) Immature 1 % Normal (applies MEDGEN (St Granulocytes to non-numeric Juan C's results) [facility]) Immature Grans 0.2 Above high normal MEDGEN (St (Abs) x10E3/uL [facility]) Hematology Note: Normal (applies MEDGEN (St Comments: to non-numeric Juan C's results) [facility], ) Leukocytes 9.5 Normal (applies MEDGEN (St [#/volume] in x10E3/uL to non-numeric Juan C's Blood by results) [facility]) Automated count Hemoglobin 10.9 Below low normal MEDGEN (St [Mass/volume] in g/dL [facility]'s Blood [facility]) Erythrocytes 3.28 Below low normal MEDGEN (St [#/volume] in x10E6/uL Juan C's Blood by [facility], ) Automated count Hematocrit 32.1 % Below low normal MEDGEN (St [Volume Juan C's Fraction] of [facility]) Blood by Automated count MCV 98 fL Above high normal MEDGEN ([facility], ) MCH 33.2 pg Above high normal [facility], ) RDW 17.3 % Above high normal MEDGEN ([facility], ) MCHC 34.0 Normal (applies MEDGEN (St g/dL to non-numeric Juan C's results) [facility]) Platelets 240 Normal (applies MEDGEN (St [#/area] in x10E3/uL to non-numeric Juan C's Blood by results) [facility]) Microscopy high power field Neutrophils [#] 53 % Normal (applies MEDGEN ( St in Body fluid by to non-numeric Juan C's Manual count results) [facility]) Lymphs 19 % Normal (applies MEDGEN (St to non-numeric Juan C's results) [facility]) Monocytes 15 % Normal (applies MEDGEN (St [#/volume] in to non-numeric Juan C's Cord blood results) [facility]) Basos 0 % Normal (applies MEDGEN (St to non-numeric Juan C's results) [facility]) Eos 11 % Normal (applies MEDGEN (St to non-numeric Juan C's results) [facility]) Lymphs 1.8 Normal (applies MEDGEN (St (Absolute) x10E3/uL to non-numeric Juan C's results) Medical, ) Neutrophils 5.1 Normal (applies MEDGEN (St (Absolute) x10E3/uL to non-numeric Juan C's results) Medical, ) Monocytes(Absolu 1.5 Above high normal MEDGE N (St te) x10E3/uL [facility]'s [facility], ) Eos (Absolute) 1.0 Above high normal MEDGEN (St x10E3/uL Juan C's [facility], ) Baso (Absolute) 0.0 Normal (applies MEDGEN ( St x10E3/uL to non-numeric Juan C's results) Medical, ) Immature Grans 0.2 Above high normal MEDGEN (St (Abs) x10E3/uL [facility], ) Immature 2 % Normal (applies MEDGEN (St Granulocytes to non-numeric Juan C's results) [facility], ) Hematology Note: Normal (applies MEDGEN (St Comments: to non-numeric Juan C's results) Medical, ) ID Date Data Source [id number] 08/27/2019 12:00:00 AM EST [facility] ([facility], ) Name Value Range Interpretation Description Data Sup porting Code Source(s) Document(s ) No Urine Test not Normal (applies to MEDGEN (St Received performed non-numeric Juan C's . results) [facility], ) ID Date Data Source [id number] 08/27/2019 12:00:00 AM EST MEDGEN ([facility], ) Name Value Range Interpretation Description Data Sup porting Code Source(s) Document(s ) Vitamin D, 42.8 Normal (applies to MEDGEN (St 25-Hydroxy ng/mL non-numeric Juan C's results) [facility], ) ID Date Data Source [id number] 08/27/2019 12:00:00 AM EST MEDGEN ([facility], ) Name Value Range Interpretation Description Data Sup porting Code Source(s) Document(s ) Hemoglobin 6.2 % Above high normal MEDGEN (St A1c/Hemoglobin. Juan C's total in Blood [facility], ) ID Date Data Source [id number] 08/27/2019 12:00:00 AM EST MEDGEN ([facility], ) Name Value Range Interpretation Description Data Sup porting Code Source(s) Document(s ) Vitamin B12 385 pg/mL Normal (applies to MEDGEN (S t non-numeric Juan C's results) Medical, ) Folate 10.5 Normal (applies to MEDGEN (St (Folic ng/mL non-numeric Juan C's Acid), Serum results) Medical, ) ID Date Data Source [id number] 08/27/2019 12:00:00 AM EST MEDGEN (St [facility], ) Name Value Range Interpretation Description Data Sup porting Code Source(s) Document(s ) Cholesterol 80 mg/dL Below low normal MEDGEN (St [Mass/volume] in Juan C's Serum or Plasma [facility], ) Triglyceride 200 Above high normal MEDGEN (S t [Mass/volume] in mg/dL Juan C's Serum or Plasma [facility], ) HDL Cholesterol 25 mg/dL Below low normal [facility]GEN ([facility], ) VLDL Cholesterol 40 mg/dL Normal (applies MEDGEN (St Nils to non-numeric Juan C's results) [facility], ) LDL Cholesterol 15 mg/dL Normal (applies MEDGEN ( St Calc to non-numeric Juan C's results) [facility], ) ID Date Data Source [id number] 08/27/2019 12:00:00 AM EST MEDGEN (St [facility], ) Name Value Range Interpretation Description Data Sup porting Code Source(s) Document(s ) Specific gravity Test not Normal (applies MEDGEN (St of Pericardial performe to non-numeric Juan C's fluid by d. results) Medical, ) Refractometry pH of Lower Test not Normal (applies MEDGEN (St respiratory performe to non-numeric Juan C's specimen d. results) Medical, ) Protein Test not Normal (applies MEDGEN (St [Mass/volume] in performe to non-numeric Juan C's Lower d. results) Medical, ) respiratory specimen Glucose Test not Normal (applies MEDGEN (St [Mass/volume] in performe to non-numeric Juan C's Urine collected d. results) Medical, ) for unspecified duration Ketones Test not Normal (applies MEDGEN (St [Presence] in performe to non-numeric Juan C's Blood by Tablet d. results) Medical, ) ID Date Data Source [id number] 08/27/2019 12:00:00 AM EST MEDGEN (St [facility], ) Name Value Range Interpretation Description Data Sup porting Code Source(s) Document(s ) Glucose 87 mg/dL Normal (applies MEDGEN (St [Mass/volume] in to non-numeric Juan C's Urine collected for results) Medical, unspecified ) duration Urea nitrogen 36 mg/dL Above high MEDGEN (St [Mass/volume] in normal Juan C's Serum or Plasma [facility], ) eGFR If NonAfricn 21 Below low normal MEDGE N (St Am mL/min/1 [facility]'s [address] [place] [address], ) Creatinine 2.81 Above high MEDGEN (St [Interpretation] in mg/dL normal Juan C's Urine [facility], ) eGFR If Africn Am 24 Below low normal MEDGE N (St mL/min/1 Juan C's .73 [facility], ) BUN/Creatinine 13 Normal (applies MEDGEN (S t Ratio to non-numeric Juan C's results) [facility], ) Sodium 135 Normal (applies MEDGEN (St [Moles/volume] in mmol/L to non-numeric Juan C's Serum or Plasma results) [facility], ) Potassium 4.1 Normal (applies MEDGEN (St [Mass/volume] in mmol/L to non-numeric Juan C's Blood results) [facility], ) Chloride 102 Normal (applies MEDGEN (St [Moles/volume] in mmol/L to non-numeric Juan C's Serum or Plasma results) [facility], ) Carbon dioxide, 20 Normal (applies MEDGEN ( St total mmol/L to non-numeric Juan C's [Moles/volume] in results) Medical, Serum or Plasma PC) Calcium 9.8 Normal (applies MEDGEN (St [Moles/volume] in mg/dL to non-numeric Juan C's Urine collected for results) [facility], unspecified ) duration Protein 9.0 g/dL Above high MEDGEN (St [Mass/volume] in normal Juan C's Serum or Plasma [facility], ) Microalbumin 4.2 g/dL Normal (applies MEDGEN (St [Mass/time] in to non-numeric Juan C's Urine collected for results) Medical, unspecified ) duration Globulin, Total 4.8 g/dL Above high MEDGEN (St normal Juan C's [facility], ) A/G Ratio 0.9 Below low normal MED[facility] ([facility], ) Bilirubin.total 0.3 Normal (applies MEDGEN ( St [Mass/volume] in mg/dL to non-numeric Juan C's Serum or Plasma results) Medical, ) Alkaline 53 IU/L Normal (applies MEDGEN (St phosphatase to non-numeric Juan C's [Enzymatic results) Medical, activity/volume] in ) Serum, Plasma or Blood Alanine 20 IU/L Normal (applies MEDGEN (St aminotransferase to non-numeric Juan C's [Enzymatic results) Medical, activity/volume] in ) Serum or Plasma Aspartate 22 IU/L Normal (applies MEDGEN (St aminotransferase to non-numeric Juan C's [Enzymatic results) Medical, activity/volume] in ) Serum or Plasma ID Date Data Source [id number] 08/27/2019 12:00:00 AM EST [facility] ([facility], ) Name Value Range Interpretation Description Data Sup porting Code Source(s) Document(s ) Leukocytes 11.8 Above high normal MEDGEN (St [#/volume] in x10E3/uL Juan C's Blood by Medical, ) Automated count Erythrocytes 3.28 Below low normal MEDGEN (St [#/volume] in x10E6/uL Juan C's Blood by [facility], ) Automated count Hemoglobin 10.8 Below low normal MEDGEN (St [Mass/volume] in g/dL [facility] Blood [facility] [facility], ) MCV 97 fL Normal (applies [facility] (St to non-numeric Juan C's results) Medical, ) Hematocrit 31.7 % Below low normal [facility] (St [Volume Juan C's Fraction] of Medical, ) Blood by Automated count MCH 32.9 pg Normal (applies [facility] (St to non-numeric [facility]'s results) Medical, ) MCHC 34.1 Normal (applies [facility] (St g/dL to non-numeric Juan C's results) Medical, ) RDW 17.5 % Above high normal [facility] ([facility], ) Neutrophils [#] 53 % Normal (applies [facility] ( St in Body fluid by to non-numeric Juan C's Manual count results) Medical, ) Platelets 237 Normal (applies [facility] (St [#/area] in x10E3/uL to non-numeric Juan C's Blood by results) [facility], ) Microscopy high power field Lymphs 20 % Normal (applies [facility] (St to non-numeric Juan [facility]'s results) Medical, ) Monocytes 13 % Normal (applies [facility] (St [#/volume] in to non-numeric Juan C's Cord blood results) Medical, ) Eos 12 % Normal (applies [facility] (St to non-numeric [facility]'s results) Medical, ) Neutrophils 6.2 Normal (applies [facility] (St (Absolute) x10E3/uL to non-numeric Juan C's results) Medical, ) Basos 1 % Normal (applies [facility] (St to non-numeric Juan C's results) Medical, ) Lymphs 2.4 Normal (applies [facility] (St (Absolute) x10E3/uL to non-numeric Juan [facility]'s results) Medical, ) Monocytes(Absolu 1.5 Above high normal MEDGE N (St te) x10E3/uL Juan C's [facility], ) Baso (Absolute) 0.1 Normal (applies [facility] ( St x10E3/uL to non-numeric Juan C's results) [facility], ) Eos (Absolute) 1.5 Above high normal [facility] (St x10E3/uL Juan C's [facility], ) Immature 1 % Normal (applies [facility] (St Granulocytes to non-numeric Juan C's results) [facility], ) Immature Grans 0.2 Above high normal [facility] (St (Abs) x10E3/uL [facility], ) Hematology Note: Normal (applies [facility] (St Comments: to non-numeric Juan C's results) [facility], ) ID Date Data Source [id number] 08/27/2019 12:00:00 AM EST [facility] ([facility], ) Name Value Range Interpretation Code Description Data Lisa rce(s) Supporting Document(s ) TSH 3.560 Normal (applies to [facility] (St uIU/mL non-numeric Juan C's results) [facility], ) T4,Free(D 1.22 ng/dL Normal (applies to [facility] (St irect) non-numeric Juan C's results) [facility], ) ID Date Data Source [id number] 08/27/2019 12:00:00 AM EST [facility] ([facility], ) Name Value Range Interpretation Description Data Sup porting Code Source(s) Document(s ) No Urine Test not Normal (applies to [facility] (St Received performed non-numeric Juan C's . results) [facility], ) ID Date Data Source [id number] 08/27/2019 12:00:00 AM EST [facility] ([facility], ) Name Value Range Interpretation Description Data Sup porting Code Source(s) Document(s ) Vitamin D, 42.8 Normal (applies to [facility] (St 25-Hydroxy ng/mL non-numeric Juan C's results) [facility], ) ID Date Data Source [id number] 08/27/2019 12:00:00 AM EST [facility] ([facility], ) Name Value Range Interpretation Description Data Sup porting Code Source(s) Document(s ) Hemoglobin 6.2 % Above high normal [facility] (St A1c/Hemoglobin. Juan C's total in Blood [facility], ) ID Date Data Source [id number] 08/27/2019 12:00:00 AM EST [facility] ([facility], ) Name Value Range Interpretation Description Data Sup porting Code Source(s) Document(s ) Vitamin B12 385 pg/mL Normal (applies to [facility] (S t non-numeric Juan C's results) [facility], ) Folate 10.5 Normal (applies to [facility] (St (Folic ng/mL non-numeric Juan C's Acid), Serum results) [facility], ) ID Date Data Source [id number] 08/27/2019 12:00:00 AM EST [facility] ([facility], ) Name Value Range Interpretation Description Data Sup porting Code Source(s) Document(s ) Cholesterol 80 mg/dL Below low normal [facility] (St [Mass/volume] in Juan C's Serum or Plasma [facility], ) Triglyceride 200 Above high normal [facility] (S t [Mass/volume] in mg/dL Juan C's Serum or Plasma [facility], ) HDL Cholesterol 25 mg/dL Below low normal [facility] ([facility], ) VLDL Cholesterol 40 mg/dL Normal (applies [facility] (St Nils to non-numeric Juan C's results) [facility], ) LDL Cholesterol 15 mg/dL Normal (applies [facility] ( St Calc to non-numeric Juan C's results) [facility], ) ID Date Data Source [id number] 08/27/2019 12:00:00 AM EST [facility] ([facility], ) Name Value Range Interpretation Description Data Sup porting Code Source(s) Document(s ) Specific gravity Test not Normal (applies [facility] (St of Pericardial performe to non-numeric Juan C's fluid by d. results) Medical, ) Refractometry pH of Lower Test not Normal (applies [facility] (St respiratory performe to non-numeric Juan C's specimen d. results) Medical, ) Protein Test not Normal (applies [facility] (St [Mass/volume] in performe to non-numeric Juan C's Lower d. results) Medical, ) respiratory specimen Glucose Test not Normal (applies [facility] (St [Mass/volume] in performe to non-numeric Juan C's Urine collected d. results) Medical, ) for unspecified duration Ketones Test not Normal (applies [facility] (St [Presence] in performe to non-numeric Juan C's Blood by Tablet d. results) Medical, ) ID Date Data Source [id number] 08/27/2019 12:00:00 AM EST [facility] ([facility], ) Name Value Range Interpretation Description Data Sup porting Code Source(s) Document(s ) Glucose 87 mg/dL Normal (applies [facility] (St [Mass/volume] in to non-numeric Juan C's Urine collected for results) Medical, unspecified PC) duration Urea nitrogen 36 mg/dL Above high [facility] (St [Mass/volume] in normal Juan C's Serum or Plasma Medical, ) Creatinine 2.81 Above high [facility] (St [Interpretation] in mg/dL normal Juan C's Urine [facility], ) eGFR If NonAfricn 21 Below low normal MEDGE N (St Am mL/min/1 Juan C's .73 [facility], ) BUN/Creatinine 13 Normal (applies [facility] (S t Ratio to non-numeric Juan C's results) Medical, ) eGFR If Africn Am 24 Below low normal [facility] N (St mL/min/1 Juan C's .73 Medical, ) Sodium 135 Normal (applies [facility] (St [Moles/volume] in mmol/L to non-numeric Juan C's Serum or Plasma results) Medical, ) Potassium 4.1 Normal (applies [facility] (St [Mass/volume] in mmol/L to non-numeric Juan C's Blood results) Medical, ) Chloride 102 Normal (applies [facility] (St [Moles/volume] in mmol/L to non-numeric Juan C's Serum or Plasma results) Medical, ) Carbon dioxide, 20 Normal (applies [facility] ( St total mmol/L to non-numeric Juan C's [Moles/volume] in results) Medical, Serum or Plasma ) Calcium 9.8 Normal (applies [facility] (St [Moles/volume] in mg/dL to non-numeric Juan C's Urine collected for results) [facility], unspecified ) duration Protein 9.0 g/dL Above high [facility] (St [Mass/volume] in normal Juan C's Serum or Plasma [facility], ) Microalbumin 4.2 g/dL Normal (applies [facility] (St [Mass/time] in to non-numeric Juan C's Urine collected for results) [facility], unspecified ) duration Globulin, Total 4.8 g/dL Above high MED[facility] (St normal [facility], ) A/G Ratio 0.9 Below low normal [facility] ([facility], ) Bilirubin.total 0.3 Normal (applies [facility] ( St [Mass/volume] in mg/dL to non-numeric Juan C's Serum or Plasma results) [facility], ) Alkaline 53 IU/L Normal (applies [facility] (St phosphatase to non-numeric Juan C's [Enzymatic results) Medical, activity/volume] in PC) Serum, Plasma or Blood Alanine 20 IU/L Normal (applies [facility] (St aminotransferase to non-numeric Juan C's [Enzymatic results) Medical, activity/volume] in ) Serum or Plasma Aspartate 22 IU/L Normal (applies [facility] (St aminotransferase to non-numeric Juan C's [Enzymatic results) Medical, activity/volume] in ) Serum or Plasma ID Date Data Source [id number] 08/27/2019 12:00:00 AM EST [facility] ([facility], ) Name Value Range Interpretation Description Data Sup porting Code Source(s) Document(s ) Leukocytes 11.8 Above high normal [facility] (St [#/volume] in x10E3/uL Juan C's Blood by [facility], ) Automated count Erythrocytes 3.28 Below low normal [facility] (St [#/volume] in x10E6/uL Juan C's Blood by [facility]) Automated count Hemoglobin 10.8 Below low normal [facility] (St [Mass/volume] in g/dL Juan C's Blood [facility], ) Hematocrit 31.7 % Below low normal [facility] (St [Volume Juan C's Fraction] of [facility], ) Blood by Automated count MCV 97 fL Normal (applies [facility] (St to non-numeric Juan C's results) [facility], ) MCH 32.9 pg Normal (applies [facility] (St to non-numeric Juan C's results) [facility]) MCHC 34.1 Normal (applies [facility] (St g/dL to non-numeric Juan C's results) [facility]) RDW 17.5 % Above high normal [facility] ([facility], ) Platelets 237 Normal (applies [facility] (St [#/area] in x10E3/uL to non-numeric Juan C's Blood by results) [facility]) Microscopy high power field Neutrophils [#] 53 % Normal (applies [facility] ( St in Body fluid by to non-numeric Juan C's Manual count results) [facility]) Lymphs 20 % Normal (applies [facility] (St to non-numeric Juan C's results) [facility]) Monocytes 13 % Normal (applies [facility] (St [#/volume] in to non-numeric Juan C's Cord blood results) [facility]) Eos 12 % Normal (applies [facility] (St to non-numeric Juan C's results) [facility]) Neutrophils 6.2 Normal (applies [facility] (St (Absolute) x10E3/uL to non-numeric Juan C's results) [facility]) Basos 1 % Normal (applies [facility] (St to non-numeric Juan C's results) [facility]) Lymphs 2.4 Normal (applies [facility] (St (Absolute) x10E3/uL to non-numeric Juan C's results) [facility]) Monocytes(Absolu 1.5 Above high normal [facility] N (St te) x10E3/uL [facility]) Eos (Absolute) 1.5 Above high normal [facility] (St x10E3/uL Juan C's [facility], ) Baso (Absolute) 0.1 Normal (applies [facility] ( St x10E3/uL to non-numeric Juan C's results) [facility]) Immature 1 % Normal (applies [facility] (St Granulocytes to non-numeric Juan C's results) [facility]) Immature Grans 0.2 Above high normal [facility] (St (Abs) x10E3/uL [facility]) Hematology Note: Normal (applies [facility] (St Comments: to non-numeric Juan C's results) [facility]) ID Date Data Source [id number] 08/27/2019 12:00:00 AM EST [facility]) Name Value Range Interpretation Code Description Data Lisa rce(s) Supporting Document(s ) TSH 3.560 Normal (applies to [facility] (St uIU/mL non-numeric Juan C's results) Medical, ) T4,Free(D 1.22 ng/dL Normal (applies to [facility] (St irect) non-numeric Juan C's results) Medical, ) ID Date Data Source [id number] 08/27/2019 12:00:00 AM EST [facility] ([facility], ) Name Value Range Interpretation Description Data Sup porting Code Source(s) Document(s ) No Urine Test not Normal (applies to [facility] (St Received performed non-numeric Juan C's . results) Medical, ) ID Date Data Source [id number] 08/27/2019 12:00:00 AM EST [facility] ([facility], ) Name Value Range Interpretation Description Data Sup porting Code Source(s) Document(s ) Vitamin D, 42.8 Normal (applies to [facility] (St 25-Hydroxy ng/mL non-numeric Juan C's results) Medical, ) ID Date Data Source [id number] 08/27/2019 12:00:00 AM EST [facility] ([facility], ) Name Value Range Interpretation Description Data Sup porting Code Source(s) Document(s ) Hemoglobin 6.2 % Above high normal [facility] (St A1c/Hemoglobin. Juan C's total in Blood Medical, ) ID Date Data Source [id number] 08/27/2019 12:00:00 AM EST [facility] ([facility], ) Name Value Range Interpretation Description Data Sup porting Code Source(s) Document(s ) Vitamin B12 385 pg/mL Normal (applies to [facility] (S t non-numeric Juan C's results) Medical, ) Folate 10.5 Normal (applies to [facility] (St (Folic ng/mL non-numeric Juan C's Acid), Serum results) [facility], ) ID Date Data Source [id number] 08/27/2019 12:00:00 AM EST [facility] ([facility], ) Name Value Range Interpretation Description Data Sup porting Code Source(s) Document(s ) No Urine Test not Normal (applies to [facility] (St Received performed non-numeric Juan C's . results) Medical, ) ID Date Data Source [id number] 08/27/2019 12:00:00 AM EST [facility] ([facility], ) Name Value Range Interpretation Description Data Sup porting Code Source(s) Document(s ) Vitamin D, 42.8 Normal (applies to [facility] (St 25-Hydroxy ng/mL non-numeric Juan C's results) Medical, ) ID Date Data Source [id number] 08/27/2019 12:00:00 AM EST [facility] ([facility], ) Name Value Range Interpretation Description Data Sup porting Code Source(s) Document(s ) Hemoglobin 6.2 % Above high normal [facility] (St A1c/Hemoglobin. Juan C's total in Blood Medical, ) ID Date Data Source [id number] 08/27/2019 12:00:00 AM EST [facility] ([facility], ) Name Value Range Interpretation Description Data Sup porting Code Source(s) Document(s ) Vitamin B12 385 pg/mL Normal (applies to [facility] (S t non-numeric Juan C's results) Medical, ) Folate 10.5 Normal (applies to [facility] (St (Folic ng/mL non-numeric Juan C's Acid), Serum results) Medical, ) ID Date Data Source [id number] 08/27/2019 12:00:00 AM EST [facility] ([facility], ) Name Value Range Interpretation Description Data Sup porting Code Source(s) Document(s ) Cholesterol 80 mg/dL Below low normal [facility] (St [Mass/volume] in Juan C's Serum or Plasma Medical, ) Triglyceride 200 Above high normal [facility]GEN (S t [Mass/volume] in mg/dL Juan C's Serum or Plasma [facility], ) HDL Cholesterol 25 mg/dL Below low normal [facility] ([facility], ) VLDL Cholesterol 40 mg/dL Normal (applies [facility] (St Nils to non-numeric Juan C's results) Medical, ) LDL Cholesterol 15 mg/dL Normal (applies [facility] ( St Calc to non-numeric Juan C's results) Medical, ) ID Date Data Source [id number] 08/27/2019 12:00:00 AM EST [facility] ([facility], ) Name Value Range Interpretation Description Data Sup porting Code Source(s) Document(s ) Specific gravity Test not Normal (applies [facility] (St of Pericardial performe to non-numeric Juan C's fluid by d. results) Medical, ) Refractometry Protein Test not Normal (applies [facility] (St [Mass/volume] in performe to non-numeric Juan C's Lower d. results) Medical, ) respiratory specimen pH of Lower Test not Normal (applies [facility] (St respiratory performe to non-numeric Juan C's specimen d. results) Medical, ) Glucose Test not Normal (applies [facility] (St [Mass/volume] in performe to non-numeric Juan C's Urine collected d. results) Medical, ) for unspecified duration Ketones Test not Normal (applies [facility] (St [Presence] in performe to non-numeric Juan C's Blood by Tablet d. results) Medical, ) ID Date Data Source [id number] 08/27/2019 12:00:00 AM EST [facility] ([facility], ) Name Value Range Interpretation Description Data Sup porting Code Source(s) Document(s ) Glucose 87 mg/dL Normal (applies [facility] (St [Mass/volume] in to non-numeric Juan C's Urine collected for results) [facility], unspecified ) duration Urea nitrogen 36 mg/dL Above high [facility] (St [Mass/volume] in normal Juan C's Serum or Plasma Medical, ) Creatinine 2.81 Above high [facility] (St [Interpretation] in mg/dL normal Juan C's Urine Medical, ) eGFR If NonAfricn 21 Below low normal [facility]GE N (St Am mL/min/1 Juan C's .73 [facility], ) eGFR If Africn Am 24 Below low normal [facility] N (St mL/min/1 Juan C's .73 [facility], ) BUN/Creatinine 13 Normal (applies [facility] (S t Ratio to non-numeric Juan C's results) Medical, ) Sodium 135 Normal (applies [facility] (St [Moles/volume] in mmol/L to non-numeric Juan C's Serum or Plasma results) Medical, ) Potassium 4.1 Normal (applies [facility] (St [Mass/volume] in mmol/L to non-numeric Juan C's Blood results) Medical, ) Chloride 102 Normal (applies [facility] (St [Moles/volume] in mmol/L to non-numeric Juan C's Serum or Plasma results) [facility], ) Carbon dioxide, 20 Normal (applies [facility] ( St total mmol/L to non-numeric Juan C's [Moles/volume] in results) Medical, Serum or Plasma PC) Calcium 9.8 Normal (applies [facility] (St [Moles/volume] in mg/dL to non-numeric Juan C's Urine collected for results) [facility], unspecified ) duration Protein 9.0 g/dL Above high [facility] (St [Mass/volume] in normal Juan C's Serum or Plasma [facility], ) Microalbumin 4.2 g/dL Normal (applies [facility] (St [Mass/time] in to non-numeric Juan C's Urine collected for results) [facility], unspecified ) duration A/G Ratio 0.9 Below low normal [facility] ([facility], ) Globulin, Total 4.8 g/dL Above high [facility] (St [facility], ) Bilirubin.total 0.3 Normal (applies [facility]GEN ( St [Mass/volume] in mg/dL to non-numeric Juan C's Serum or Plasma results) [facility], ) Alkaline 53 IU/L Normal (applies [facility] (St phosphatase to non-numeric Juan C's [Enzymatic results) Medical, activity/volume] in ) Serum, Plasma or Blood Aspartate 22 IU/L Normal (applies [facility] (St aminotransferase to non-numeric Juan C's [Enzymatic results) Medical, activity/volume] in ) Serum or Plasma Alanine 20 IU/L Normal (applies [facility] (St aminotransferase to non-numeric Juan C's [Enzymatic results) Medical, activity/volume] in ) Serum or Plasma ID Date Data Source [id number] 08/27/2019 12:00:00 AM EST [facility] ([facility], ) Name Value Range Interpretation Description Data Sup porting Code Source(s) Document(s ) Leukocytes 11.8 Above high normal [facility] (St [#/volume] in x10E3/uL Juan C's Blood by [facility], ) Automated count Hemoglobin 10.8 Below low normal [facility] (St [Mass/volume] in g/dL Juan C's Blood [facility]) Erythrocytes 3.28 Below low normal [facility] (St [#/volume] in x10E6/uL Juan C's Blood by [facility], ) Automated count Hematocrit 31.7 % Below low normal [facility] (St [Volume Juan C's Fraction] of [facility], ) Blood by Automated count MCV 97 fL Normal (applies MEDGEN (St to non-numeric Juan C's results) [facility], ) MCH 32.9 pg Normal (applies MEDGEN (St to non-numeric Juan C's results) [facility], ) MCHC 34.1 Normal (applies [facility]GEN (St g/dL to non-numeric Juan C's results) [facility], ) Platelets 237 Normal (applies [facility]GEN (St [#/area] in x10E3/uL to non-numeric Juan C's Blood by results) [facility], ) Microscopy high power field RDW 17.5 % Above high normal [facility] ([facility], ) Neutrophils [#] 53 % Normal (applies MEDGEN ( St in Body fluid by to non-numeric Juan C's Manual count results) [facility], ) Lymphs 20 % Normal (applies [facility] (St to non-numeric Juan C's results) [facility], ) Monocytes 13 % Normal (applies MEDGEN (St [#/volume] in to non-numeric Juan C's Cord blood results) [facility], ) Eos 12 % Normal (applies MEDGEN (St to non-numeric Juan C's results) [facility], ) Basos 1 % Normal (applies MEDGEN (St to non-numeric Juan C's results) [facility], ) Neutrophils 6.2 Normal (applies [facility]GEN (St (Absolute) x10E3/uL to non-numeric Juan C's results) [facility], ) Monocytes(Absolu 1.5 Above high normal MED[facility] N (St te) x10E3/uL Juan C's [facility], ) Lymphs 2.4 Normal (applies [facility] (St (Absolute) x10E3/uL to non-numeric Juan C's results) [facility], ) Eos (Absolute) 1.5 Above high normal [facility] (St x10E3/uL Juan C's [facility], ) Baso (Absolute) 0.1 Normal (applies [facility] ( St x10E3/uL to non-numeric Juan C's results) [facility], ) Immature 1 % Normal (applies [facility] (St Granulocytes to non-numeric Juan C's results) [facility], ) Immature Grans 0.2 Above high normal [facility] (St (Abs) x10E3/uL [facility], ) Hematology Note: Normal (applies [facility] (St Comments: to non-numeric Juan C's results) Medical, ) ID Date Data Source [id number] 08/27/2019 12:00:00 AM EST [facility] ([facility], ) Name Value Range Interpretation Code Description Data Lisa rce(s) Supporting Document(s ) TSH 3.560 Normal (applies to [facility] (St uIU/mL non-numeric Juan C's results) Medical, ) T4,Free(D 1.22 ng/dL Normal (applies to MEDGEN (St irect) non-numeric Juan C's results) Medical, ) ID Date Data Source [id number] 08/27/2019 12:00:00 AM EST [facility] ([facility], ) Name Value Range Interpretation Description Data Sup porting Code Source(s) Document(s ) No Urine Test not Normal (applies to MEDGEN (St Received performed non-numeric Juan C's . results) Medical, ) ID Date Data Source [id number] 08/27/2019 12:00:00 AM EST [facility] ([facility], ) Name Value Range Interpretation Description Data Sup porting Code Source(s) Document(s ) Vitamin D, 42.8 Normal (applies to [facility] (St 25-Hydroxy ng/mL non-numeric Juan C's results) [facility], ) ID Date Data Source [id number] 08/27/2019 12:00:00 AM EST [facility] ([facility], ) Name Value Range Interpretation Description Data Sup porting Code Source(s) Document(s ) Hemoglobin 6.2 % Above high normal [facility] (St A1c/Hemoglobin. Juan C's total in Blood [facility], ) ID Date Data Source [id number] 08/27/2019 12:00:00 AM EST [facility] ([facility], ) Name Value Range Interpretation Description Data Sup porting Code Source(s) Document(s ) Vitamin B12 385 pg/mL Normal (applies to MEDGEN (S t non-numeric Juan C's results) Medical, ) Folate 10.5 Normal (applies to [facility] (St (Folic ng/mL non-numeric Juan C's Acid), Serum results) Medical, ) ID Date Data Source [id number] 08/27/2019 12:00:00 AM EST [facility] ([facility], ) Name Value Range Interpretation Description Data Sup porting Code Source(s) Document(s ) Cholesterol 80 mg/dL Below low normal MED[facility] (St [Mass/volume] in Juan C's Serum or Plasma Medical, ) Triglyceride 200 Above high normal MEDGEN (S t [Mass/volume] in mg/dL Juan C's Serum or Plasma [facility], ) HDL Cholesterol 25 mg/dL Below low normal [facility] ([facility], ) VLDL Cholesterol 40 mg/dL Normal (applies MEDGEN (St Nils to non-numeric [facility] results) [facility], [facility]) LDL Cholesterol 15 mg/dL Normal (applies MEDGEN ( St Calc to non-numeric [facility]'s results) Medical, ) ID Date Data Source [id number] 08/27/2019 12:00:00 AM EST [facility] ([facility], ) Name Value Range Interpretation Description Data Sup porting Code Source(s) Document(s ) Specific gravity Test not Normal (applies [facility] (St of Pericardial performe to non-numeric Juan C's fluid by d. results) Medical, [facility]) Refractometry pH of Lower Test not Normal (applies [facility] (St respiratory performe to non-numeric Juan C's specimen d. results) Medical, [facility]) Protein Test not Normal (applies [facility] (St [Mass/volume] in performe to non-numeric Juan C's Lower d. results) Medical, ) respiratory specimen Glucose Test not Normal (applies [facility] (St [Mass/volume] in performe to non-numeric Juan C's Urine collected d. results) Medical, ) for unspecified duration Ketones Test not Normal (applies [facility] (St [Presence] in performe to non-numeric Juan C's Blood by Tablet d. results) Medical, ) ID Date Data Source [id number] 08/27/2019 12:00:00 AM EST [facility] ([facility], ) Name Value Range Interpretation Description Data Sup porting Code Source(s) Document(s ) Glucose 87 mg/dL Normal (applies [facility] (St [Mass/volume] in to non-numeric [facility] Urine collected for results) [facility] ) duration Urea nitrogen 36 mg/dL Above high [facility]GEN (St [Mass/volume] in normal Juan C's Serum or Plasma [facility], ) Creatinine 2.81 Above high MEDGEN (St [Interpretation] in mg/dL normal Juan C's Urine [facility], ) eGFR If NonAfricn 21 Below low normal MEDGE N (St Am mL/min/1 [facility]'s [address], ) eGFR If Africn Am 24 Below low normal MEDGE N (St mL/min/1 [facility]'s .73 [facility], ) BUN/Creatinine 13 Normal (applies [facility] (S t Ratio to non-numeric Juan C's results) [facility], ) Sodium 135 Normal (applies [facility] (St [Moles/volume] in mmol/L to non-numeric Juan C's Serum or Plasma results) [facility], ) Potassium 4.1 Normal (applies [facility] (St [Mass/volume] in mmol/L to non-numeric Juan C's Blood results) [facility], ) Chloride 102 Normal (applies [facility] (St [Moles/volume] in mmol/L to non-numeric Juan C's Serum or Plasma results) [facility], ) Carbon dioxide, 20 Normal (applies [facility] ( St total mmol/L to non-numeric Juan C's [Moles/volume] in results) Medical, Serum or Plasma PC) Calcium 9.8 Normal (applies [facility] (St [Moles/volume] in mg/dL to non-numeric [facility] Urine collected for results) Medical, unspecified PC) duration Protein 9.0 g/dL Above high [facility]GEN (St [Mass/volume] in normal Juan C's Serum or Plasma [facility], ) Microalbumin 4.2 g/dL Normal (applies [facility] (St [Mass/time] in to non-numeric Juan C's Urine collected for results) Medical, unspecified PC) duration Globulin, Total 4.8 g/dL Above high [facility]GEN (St normal Juan C's [facility], ) A/G Ratio 0.9 Below low normal [facility] ([facility], ) Bilirubin.total 0.3 Normal (applies [facility] ( St [Mass/volume] in mg/dL to non-numeric Juan C's Serum or Plasma results) [facility], ) Alkaline 53 IU/L Normal (applies [facility] (St phosphatase to non-numeric Juan C's [Enzymatic results) Medical, activity/volume] in PC) Serum, Plasma or Blood Aspartate 22 IU/L Normal (applies [facility] (St aminotransferase to non-numeric Juan C's [Enzymatic results) Medical, activity/volume] in ) Serum or Plasma Alanine 20 IU/L Normal (applies [facility] (St aminotransferase to non-numeric Juan C's [Enzymatic results) Medical, activity/volume] in ) Serum or Plasma ID Date Data Source [id number] 08/27/2019 12:00:00 AM EST [facility] ([facility], ) Name Value Range Interpretation Description Data Sup porting Code Source(s) Document(s ) Leukocytes 11.8 Above high normal [facility] (St [#/volume] in x10E3/uL Juan C's Blood by [facility], ) Automated count Erythrocytes 3.28 Below low normal [facility] (St [#/volume] in x10E6/uL Juan C's Blood by [facility], ) Automated count Hemoglobin 10.8 Below low normal [facility] (St [Mass/volume] in g/dL Juan C's Blood [facility], ) Hematocrit 31.7 % Below low normal [facility] (St [Volume Juan C's Fraction] of [facility], ) Blood by Automated count MCV 97 fL Normal (applies [facility] (St to non-numeric Juan C's results) [facility], ) MCH 32.9 pg Normal (applies [facility] (St to non-numeric Juan C's results) [facility], ) MCHC 34.1 Normal (applies [facility] (St g/dL to non-numeric Juan C's results) [facility], ) RDW 17.5 % Above high normal [facility] ([facility], ) Platelets 237 Normal (applies [facility] (St [#/area] in x10E3/uL to non-numeric Juan C's Blood by results) [facility], ) Microscopy high power field Neutrophils [#] 53 % Normal (applies [facility]GEN ( St in Body fluid by to non-numeric Juan C's Manual count results) [facility], ) Lymphs 20 % Normal (applies [facility] (St to non-numeric Juan C's results) [facility], ) Monocytes 13 % Normal (applies [facility] (St [#/volume] in to non-numeric Juan C's Cord blood results) [facility], ) Eos 12 % Normal (applies [facility] (St to non-numeric Juan C's results) [facility], ) Basos 1 % Normal (applies [facility] (St to non-numeric Juan C's results) [facility], ) Neutrophils 6.2 Normal (applies [facility] (St (Absolute) x10E3/uL to non-numeric Juan C's results) [facility]) Lymphs 2.4 Normal (applies [facility] (St (Absolute) x10E3/uL to non-numeric Juan C's results) [facility]) Monocytes(Absolu 1.5 Above high normal MEDGE N (St te) x10E3/uL [facility]'s [facility], ) Eos (Absolute) 1.5 Above high normal [facility] (St x10E3/uL [facility], ) Baso (Absolute) 0.1 Normal (applies [facility]GEN ( St x10E3/uL to non-numeric Juan C's results) [facility], ) Immature 1 % Normal (applies [facility] (St Granulocytes to non-numeric Juan C's results) [facility]) Immature Grans 0.2 Above high normal [facility] (St (Abs) x10E3/uL [facility], ) Hematology Note: Normal (applies [facility] (St Comments: to non-numeric Juan C's results) [facility], ) ID Date Data Source [id number] 08/27/2019 12:00:00 AM EST [facility] ([facility], ) Name Value Range Interpretation Code Description Data Lisa rce(s) Supporting Document(s ) TSH 3.560 Normal (applies to [facility]GEN (St uIU/mL non-numeric Juan C's results) [facility], ) T4,Free(D 1.22 ng/dL Normal (applies to [facility]GEN (St irect) non-numeric Juan C's results) [facility], ) ID Date Data Source [id number] 08/27/2019 12:00:00 AM EST [facility] ([facility], ) Name Value Range Interpretation Description Data Sup porting Code Source(s) Document(s ) No Urine Test not Normal (applies to [facility]GEN (St Received performed non-numeric Juan C's . results) [facility], ) ID Date Data Source [id number] 08/27/2019 12:00:00 AM EST [facility] ([facility], ) Name Value Range Interpretation Description Data Sup porting Code Source(s) Document(s ) Vitamin D, 42.8 Normal (applies to [facility]GEN (St 25-Hydroxy ng/mL non-numeric Juan C's results) [facility]) Vitamin D, 30.6 Normal (applies to [facility] (St 25-Hydroxy ng/mL non-numeric Juan C's results) [facility], ) Vitamin D, 36.2 Normal (applies to [facility]GEN (St 25-Hydroxy ng/mL non-numeric Juan C's results) [facility], ) ID Date Data Source [id number] 08/27/2019 12:00:00 AM EST [facility] ([facility], ) Name Value Range Interpretation Description Data Sup porting Code Source(s) Document(s ) Hemoglobin 6.2 % Above high normal [facility] (St A1c/Hemoglobin. Juan C's total in Blood [facility], ) ID Date Data Source [id number] 08/27/2019 12:00:00 AM EST [facility] ([facility], ) Name Value Range Interpretation Description Data Sup porting Code Source(s) Document(s ) Vitamin B12 385 pg/mL Normal (applies to [facility]GEN (S t non-numeric Juan C's results) [facility], ) Folate 10.5 Normal (applies to [facility] (St (Folic ng/mL non-numeric Juan C's Acid), Serum results) [facility], ) ID Date Data Source [id number] 08/27/2019 12:00:00 AM EST [facility] ([facility], ) Name Value Range Interpretation Description Data Sup porting Code Source(s) Document(s ) Cholesterol 80 mg/dL Below low normal [facility] (St [Mass/volume] in Juan C's Serum or Plasma [facility], ) Triglyceride 200 Above high normal [facility]GEN (S t [Mass/volume] in mg/dL Juan C's Serum or Plasma [facility], ) HDL Cholesterol 25 mg/dL Below low normal [facility] ([facility], ) VLDL Cholesterol 40 mg/dL Normal (applies [facility] (St Nils to non-numeric Juan C's results) [facility], ) LDL Cholesterol 15 mg/dL Normal (applies [facility] ( St Calc to non-numeric Juan C's results) [facility], ) ID Date Data Source [id number] 08/27/2019 12:00:00 AM EST [facility] ([facility], ) Name Value Range Interpretation Description Data Sup porting Code Source(s) Document(s ) Specific gravity Test not Normal (applies [facility] (St of Pericardial performe to non-numeric Juan C's fluid by d. results) [facility], ) Refractometry pH of Lower Test not Normal (applies [facility] (St respiratory performe to non-numeric Jua N[facility]'s specimen d. results) Medical, ) Protein Test not Normal (applies [facility] (St [Mass/volume] in performe to non-numeric [facility] C's Lower d. results) Medical, ) respiratory specimen Glucose Test not Normal (applies [facility] (St [Mass/volume] in performe to non-numeric [facility] C's Urine collected d. results) Medical, ) for unspecified duration Ketones Test not Normal (applies [facility] (St [Presence] in performe to non-numeric [facility] C's Blood by Tablet d. results) Medical, ) ID Date Data Source [id number] 08/27/2019 12:00:00 AM EST [facility] ([facility], ) Name Value Range Interpretation Description Data Sup porting Code Source(s) Document(s ) Glucose 88 mg/dL Normal (applies [facility] (St [Mass/volume] in to non-numeric Juan C's Urine collected for results) Medical, unspecified PC) duration Urea nitrogen 61 mg/dL Above high [facility] (St [Mass/volume] in normal Juan C's Serum or Plasma Medical, ) Creatinine 5.97 Above high [facility]GEN (St [Interpretation] in mg/dL normal [facility] Urine Medical, ) eGFR If NonAfricn 9 Below low normal MEDGE N (St Am mL/min/1 Juan C's .73 [facility], ) eGFR If Africn Am 10 Below low normal MEDGE N (St mL/min/1 Juan C's .73 [facility], ) BUN/Creatinine 10 Normal (applies [facility]GEN (S t Ratio to non-numeric Juan C's results) Medical, ) Sodium 134 Normal (applies [facility] (St [Moles/volume] in mmol/L to non-numeric Juan C's Serum or Plasma results) Medical, ) Chloride 98 Normal (applies [facility] (St [Moles/volume] in mmol/L to non-numeric Juan C's Serum or Plasma results) Medical, ) Potassium 4.1 Normal (applies [facility] (St [Mass/volume] in mmol/L to non-numeric Juan C's Blood results) Medical, ) Carbon dioxide, 20 Normal (applies [facility]GEN ( St total mmol/L to non-numeric Juan C's [Moles/volume] in results) Medical, Serum or Plasma PC) Protein 9.1 g/dL Above high [facility]GEN (St [Mass/volume] in normal Juan C's Serum or Plasma Medical, ) Calcium 12.0 Above high [facility]GEN (St [Moles/volume] in mg/dL normal Juan C's Urine collected for Medical, unspecified PC) duration Microalbumin 3.9 g/dL Normal (applies [facility]GEN (St [Mass/time] in to non-numeric Juan C's Urine collected for results) Medical, unspecified PC) duration Globulin, Total 5.2 g/dL Above high [facility] (St normal [facility], ) A/G Ratio 0.8 Below low normal [facility] ([facility], ) Bilirubin.total 0.4 Normal (applies [facility]GEN ( St [Mass/volume] in mg/dL to non-numeric Juan C's Serum or Plasma results) Medical, ) Aspartate 43 IU/L Above high [facility]GEN (St aminotransferase normal Juan C's [Enzymatic Medical, activity/volume] in PC) Serum or Plasma Alkaline 63 IU/L Normal (applies [facility]GEN (St phosphatase to non-numeric Juan C's [Enzymatic results) Medical, activity/volume] in PC) Serum, Plasma or Blood Alanine 43 IU/L Normal (applies [facility]GEN (St aminotransferase to non-numeric Juan C's [Enzymatic results) Medical, activity/volume] in PC) Serum or Plasma Glucose 87 mg/dL Normal (applies [facility]GEN (St [Mass/volume] in to non-numeric Juan C's Urine collected for results) Medical, unspecified PC) duration Urea nitrogen 36 mg/dL Above high [facility]GEN (St [Mass/volume] in normal Juan C's Serum or Plasma Medical, ) Creatinine 2.81 Above high [facility]GEN (St [Interpretation] in mg/dL normal Juan C's Urine [facility], ) eGFR If NonAfricn 21 Below low normal MEDGE N (St Am mL/min/1 [facility]'s [address] [place] [address], ) eGFR If Africn Am 24 Below low normal MEDGE N (St mL/min/1 [facility]'s .73 [facility], ) BUN/Creatinine 13 Normal (applies [facility]GEN (S t Ratio to non-numeric Juan C's results) Medical, ) Sodium 135 Normal (applies [facility]GEN (St [Moles/volume] in mmol/L to non-numeric Juan C's Serum or Plasma results) Medical, ) Potassium 4.1 Normal (applies [facility]GEN (St [Mass/volume] in mmol/L to non-numeric Juan C's Blood results) Medical, ) Carbon dioxide, 20 Normal (applies [facility]GEN ( St total mmol/L to non-numeric Juan C's [Moles/volume] in results) Medical, Serum or Plasma PC) Chloride 102 Normal (applies [facility]GEN (St [Moles/volume] in mmol/L to non-numeric Juan C's Serum or Plasma results) Medical, ) Calcium 9.8 Normal (applies [facility] (St [Moles/volume] in mg/dL to non-numeric Juan C's Urine collected for results) [facility], unspecified ) duration Protein 9.0 g/dL Above high MEDGEN (St [Mass/volume] in normal Juan C's Serum or Plasma Medical, ) Microalbumin 4.2 g/dL Normal (applies [facility]GEN (St [Mass/time] in to non-numeric Juan C's Urine collected for results) [facility], unspecified ) duration Globulin, Total 4.8 g/dL Above high MEDGEN (St normal [facility], ) A/G Ratio 0.9 Below low normal [facility] ([facility], ) Bilirubin.total 0.3 Normal (applies MEDGEN ( St [Mass/volume] in mg/dL to non-numeric Juan C's Serum or Plasma results) Medical, ) Alkaline 53 IU/L Normal (applies [facility]GEN (St phosphatase to non-numeric Juan C's [Enzymatic results) Medical, activity/volume] in ) Serum, Plasma or Blood Aspartate 22 IU/L Normal (applies [facility]GEN (St aminotransferase to non-numeric Juan C's [Enzymatic results) Medical, activity/volume] in ) Serum or Plasma Alanine 20 IU/L Normal (applies [facility]GEN (St aminotransferase to non-numeric Juan C's [Enzymatic results) Medical, activity/volume] in PC) Serum or Plasma ID Date Data Source [id number] 08/27/2019 12:00:00 AM EST [facility] ([facility], ) Name Value Range Interpretation Description Data Sup porting Code Source(s) Document(s ) Leukocytes 11.7 Above high normal [facility] (St [#/volume] in x10E3/uL Juan C's Blood by [facility]) Automated count Erythrocytes 2.47 Below lower panic MEDGEN (S t [#/volume] in x10E6/uL limits Juan C's Blood by [facility]) Automated count Hemoglobin 8.2 g/dL Below low normal [facility] (St [Mass/volume] in Juan C's Blood [facility]) Hematocrit 23.3 % Below low normal [facility] (St [Volume Ujan C's Fraction] of [facility]) Blood by Automated count MCH 33.2 pg Above high normal [facility] ([facility], ) MCV 94 fL Normal (applies MEDGEN (St to non-numeric Juan C's results) [facility]) MCHC 35.2 Normal (applies [facility]GEN (St g/dL to non-numeric Juan C's results) [facility]) RDW 19.0 % Above high normal [facility] ([facility], ) Platelets 198 Normal (applies MEDGEN (St [#/area] in x10E3/uL to non-numeric Juan C's Blood by results) [facility]) Microscopy high power field Neutrophils [#] 54 % Normal (applies [facility]GEN ( St in Body fluid by to non-numeric Juan C's Manual count results) [facility]) Lymphs 13 % Normal (applies [facility] (St to non-numeric Juan C's results) [facility]) Monocytes 16 % Normal (applies [facility]GEN (St [#/volume] in to non-numeric Juan C's Cord blood results) [facility]) Eos 11 % Normal (applies [facility]GEN (St to non-numeric Juan C's results) [facility]) Basos 1 % Normal (applies [facility]GEN (St to non-numeric Juan C's results) [facility]) Neutrophils 6.4 Normal (applies [facility]GEN (St (Absolute) x10E3/uL to non-numeric Juan C's results) [facility]) Lymphs 1.5 Normal (applies [facility]GEN (St (Absolute) x10E3/uL to non-numeric Juan C's results) [facility]) Monocytes(Absolu 1.9 Above high normal MEDGE N (St te) x10E3/uL [facility]'s [facility]) Eos (Absolute) 1.3 Above high normal [facility] (St x10E3/uL [facility]) Baso (Absolute) 0.1 Normal (applies MEDGEN ( St x10E3/uL to non-numeric Juan C's results) [facility], ) Immature 5 % Normal (applies [facility]GEN (St Granulocytes to non-numeric Juan C's results) [facility], ) Immature Grans 0.6 Above high normal [facility]GEN (St (Abs) x10E3/uL Juan C's [facility], ) NRBC 4 % Above high normal [facility] ([facility], ) Leukocytes 11.8 Above high normal [facility]GEN (St [#/volume] in x10E3/uL Juan C's Blood by [facility], ) Automated count Erythrocytes 3.28 Below low normal [facility] (St [#/volume] in x10E6/uL Juan C's Blood by [facility], ) Automated count Hemoglobin 10.8 Below low normal [facility]GEN (St [Mass/volume] in g/dL Juan C's Blood [facility], ) MCV 97 fL Normal (applies MEDGEN (St to non-numeric Juan C's results) [facility], ) Hematocrit 31.7 % Below low normal [facility] (St [Volume Juan C's Fraction] of [facility], ) Blood by Automated count MCH 32.9 pg Normal (applies MEDGEN (St to non-numeric Juan C's results) [facility], ) RDW 17.5 % Above high normal [facility] ([facility], ) MCHC 34.1 Normal (applies MEDGEN (St g/dL to non-numeric Juan C's results) [facility], ) Platelets 237 Normal (applies MEDGEN (St [#/area] in x10E3/uL to non-numeric Juan C's Blood by results) [facility], ) Microscopy high power field Neutrophils [#] 53 % Normal (applies MEDGEN ( St in Body fluid by to non-numeric Juan C's Manual count results) [facility], ) Lymphs 20 % Normal (applies MEDGEN (St to non-numeric Juan C's results) [facility], ) Eos 12 % Normal (applies MEDGEN (St to non-numeric Juan C's results) [facility], ) Monocytes 13 % Normal (applies MEDGEN (St [#/volume] in to non-numeric Juan C's Cord blood results) [facility], ) Basos 1 % Normal (applies MEDGEN (St to non-numeric Juan C's results) [facility], ) Neutrophils 6.2 Normal (applies MEDGEN (St (Absolute) x10E3/uL to non-numeric Juan C's results) [facility], ) Lymphs 2.4 Normal (applies MEDGEN (St (Absolute) x10E3/uL to non-numeric Juan C's results) [facility]) Monocytes(Absolu 1.5 Above high normal MEDGE N (St te) x10E3/uL Juan C's [facility], ) Baso (Absolute) 0.1 Normal (applies MEDGEN ( St x10E3/uL to non-numeric Juan C's results) [facility]) Eos (Absolute) 1.5 Above high normal MEDGEN (St x10E3/uL Juan C's [facility], ) Immature 1 % Normal (applies MEDGEN (St Granulocytes to non-numeric Juan C's results) [facility]) Hematology Note: Normal (applies MEDGEN (St Comments: to non-numeric Juan C's results) [facility], ) Immature Grans 0.2 Above high normal [facility]GEN (St (Abs) x10E3/uL [facility], ) Leukocytes 9.5 Normal (applies MEDGEN (St [#/volume] in x10E3/uL to non-numeric Juan C's Blood by results) [facility], ) Automated count Erythrocytes 3.28 Below low normal [facility]GEN (St [#/volume] in x10E6/uL Juan C's Blood by [facility], ) Automated count Hemoglobin 10.9 Below low normal [facility] (St [Mass/volume] in g/dL Juan C's Blood [facility], ) Hematocrit 32.1 % Below low normal [facility]GEN (St [Volume Juan C's Fraction] of [facility], ) Blood by Automated count MCH 33.2 pg Above high normal [facility] ([facility], ) MCV 98 fL Above high normal [facility] ([facility], ) MCHC 34.0 Normal (applies MEDGEN (St g/dL to non-numeric Juan C's results) [facility]) RDW 17.3 % Above high normal [facility] ([facility], ) Platelets 240 Normal (applies MEDGEN (St [#/area] in x10E3/uL to non-numeric Juan C's Blood by results) [facility], ) Microscopy high power field Neutrophils [#] 53 % Normal (applies MEDGEN ( St in Body fluid by to non-numeric Juan C's Manual count results) [facility], ) Lymphs 19 % Normal (applies MEDGEN (St to non-numeric Juan C's results) Medical, ) Eos 11 % Normal (applies MEDGEN (St to non-numeric Juan C's results) [facility], ) Monocytes 15 % Normal (applies MEDGEN (St [#/volume] in to non-numeric Juan C's Cord blood results) [facility], ) Basos 0 % Normal (applies MEDGEN (St to non-numeric Juan C's results) [facility], ) Neutrophils 5.1 Normal (applies MEDGEN (St (Absolute) x10E3/uL to non-numeric Juan C's results) [facility], ) Lymphs 1.8 Normal (applies MEDGEN (St (Absolute) x10E3/uL to non-numeric Juan C's results) [facility], ) Monocytes(Absolu 1.5 Above high normal MEDGE N (St te) x10E3/uL Juan C's [facility], ) Eos (Absolute) 1.0 Above high normal MEDGEN (St x10E3/uL Juan C's [facility], ) Baso (Absolute) 0.0 Normal (applies MEDGEN ( St x10E3/uL to non-numeric Juan C's results) [facility], ) Immature Grans 0.2 Above high normal MEDGEN (St (Abs) x10E3/uL Juan C's [facility], ) Immature 2 % Normal (applies MEDGEN (St Granulocytes to non-numeric Juan C's results) [facility], ) Hematology Note: Normal (applies MED[facility] (St Comments: to non-numeric Juan C's results) [facility], ) ID Date Data Source [id number] 08/27/2019 12:00:00 AM EST [facility] ([facility], ) Name Value Range Interpretation Code Description Data Lisa rce(s) Supporting Document(s ) TSH 3.560 Normal (applies to MEDGEN (St uIU/mL non-numeric Juan C's results) [facility], ) T4,Free(D 1.22 ng/dL Normal (applies to MEDGEN (St irect) non-numeric Juan C's results) [facility], ) ID Date Data Source [id number] 08/27/2019 12:00:00 AM EST [facility] ([facility], ) Name Value Range Interpretation Description Data Sup porting Code Source(s) Document(s ) No Urine Test not Normal (applies to MEDGEN (St Received performed non-numeric Juan C's . results) Medical, ) ID Date Data Source [id number] 08/27/2019 12:00:00 AM EST [facility] ([facility], ) Name Value Range Interpretation Description Data Sup porting Code Source(s) Document(s ) Vitamin D, 42.8 Normal (applies to [facility]GEN (St 25-Hydroxy ng/mL non-numeric Juan C's results) Medical, ) Vitamin D, 36.2 Normal (applies to [facility]GEN (St 25-Hydroxy ng/mL non-numeric Juan C's results) Medical, ) ID Date Data Source [id number] 08/27/2019 12:00:00 AM EST MED[facility] ([facility], ) Name Value Range Interpretation Description Data Sup porting Code Source(s) Document(s ) Hemoglobin 6.2 % Above high normal MEDGEN (St A1c/Hemoglobin. Juan C's total in Blood Medical, ) ID Date Data Source [id number] 08/27/2019 12:00:00 AM EST MEDGEN ([facility], ) Name Value Range Interpretation Description Data Sup porting Code Source(s) Document(s ) Folate 10.5 Normal (applies to MEDGEN (St (Folic ng/mL non-numeric Juan C's Acid), Serum results) Medical, ) Vitamin B12 385 pg/mL Normal (applies to MEDGEN (S t non-numeric Juan C's results) Medical, ) ID Date Data Source [id number] 08/27/2019 12:00:00 AM EST MEDGEN ([facility], ) Name Value Range Interpretation Description Data Sup porting Code Source(s) Document(s ) Cholesterol 80 mg/dL Below low normal MEDGEN (St [Mass/volume] in Juan C's Serum or Plasma Medical, ) Triglyceride 200 Above high normal MEDGEN (S t [Mass/volume] in mg/dL Juan C's Serum or Plasma Medical, ) VLDL Cholesterol 40 mg/dL Normal (applies MEDGEN (St Nils to non-numeric Juan C's results) Medical, ) HDL Cholesterol 25 mg/dL Below low normal [facility] ([facility], ) LDL Cholesterol 15 mg/dL Normal (applies MEDGEN ( St Calc to non-numeric Juan C's results) Medical, ) ID Date Data Source [id number] 08/27/2019 12:00:00 AM EST [facility] ([facility], ) Name Value Range Interpretation Description Data Sup porting Code Source(s) Document(s ) Specific gravity Test not Normal (applies MEDGEN (St of Pericardial performe to non-numeric Juan C's fluid by d. results) Medical, ) Refractometry pH of Lower Test not Normal (applies [facility]GEN (St respiratory performe to non-numeric Juan C's specimen d. results) Medical, ) Protein Test not Normal (applies [facility] (St [Mass/volume] in performe to non-numeric Juan C's Lower d. results) Medical, ) respiratory specimen Ketones Test not Normal (applies [facility] (St [Presence] in performe to non-numeric Juan C's Blood by Tablet d. results) Medical, ) Glucose Test not Normal (applies [facility]GEN (St [Mass/volume] in performe to non-numeric Juan C's Urine collected d. results) Medical, ) for unspecified duration ID Date Data Source [id number] 08/27/2019 12:00:00 AM EST [facility] ([facility], ) Name Value Range Interpretation Description Data Sup porting Code Source(s) Document(s ) Urea nitrogen 36 mg/dL Above high MEDGEN (St [Mass/volume] in normal Juan C's Serum or Plasma Medical, ) Glucose 87 mg/dL Normal (applies [facility]GEN (St [Mass/volume] in to non-numeric Juan C's Urine collected for results) [facility], unspecified ) duration Creatinine 2.81 Above high MEDGEN (St [Interpretation] in mg/dL normal Juan C's Urine Medical, ) eGFR If NonAfricn 21 Below low normal MEDGE N (St Am mL/min/1 Juan C's .73 [facility], ) BUN/Creatinine 13 Normal (applies MEDGEN (S t Ratio to non-numeric Juan C's results) Medical, ) eGFR If Africn Am 24 Below low normal MEDGE N (St mL/min/1 Juan C's .73 Medical, ) Sodium 135 Normal (applies [facility]GEN (St [Moles/volume] in mmol/L to non-numeric Juan C's Serum or Plasma results) Medical, ) Potassium 4.1 Normal (applies [facility]GEN (St [Mass/volume] in mmol/L to non-numeric Juan C's Blood results) Medical, ) Carbon dioxide, 20 Normal (applies MEDGEN ( St total mmol/L to non-numeric Juan C's [Moles/volume] in results) Medical, Serum or Plasma PC) Chloride 102 Normal (applies [facility]GEN (St [Moles/volume] in mmol/L to non-numeric Juan C's Serum or Plasma results) [facility], ) Protein 9.0 g/dL Above high MEDGEN (St [Mass/volume] in normal Juan C's Serum or Plasma [facility], ) Calcium 9.8 Normal (applies MEDGEN (St [Moles/volume] in mg/dL to non-numeric Juan C's Urine collected for results) [facility], unspecified ) duration Microalbumin 4.2 g/dL Normal (applies [facility]GEN (St [Mass/time] in to non-numeric Juan C's Urine collected for results) [facility], unspecified ) duration Globulin, Total 4.8 g/dL Above high MEDGEN (St normal [facility], ) A/G Ratio 0.9 Below low normal [facility] ([facility], ) Bilirubin.total 0.3 Normal (applies MEDGEN ( St [Mass/volume] in mg/dL to non-numeric Juan C's Serum or Plasma results) [facility], ) Aspartate 22 IU/L Normal (applies MEDGEN (St aminotransferase to non-numeric Juan C's [Enzymatic results) Medical, activity/volume] in PC) Serum or Plasma Alkaline 53 IU/L Normal (applies MEDGEN (St phosphatase to non-numeric Juan C's [Enzymatic results) Medical, activity/volume] in ) Serum, Plasma or Blood Alanine 20 IU/L Normal (applies MEDGEN (St aminotransferase to non-numeric Juan C's [Enzymatic results) Medical, activity/volume] in ) Serum or Plasma ID Date Data Source [id number] 08/27/2019 12:00:00 AM EST MEDGEN ([facility], ) Name Value Range Interpretation Description Data Sup porting Code Source(s) Document(s ) Leukocytes 11.8 Above high normal MEDGEN (St [#/volume] in x10E3/uL Juan C's Blood by [facility], ) Automated count Erythrocytes 3.28 Below low normal MEDGEN (St [#/volume] in x10E6/uL Juan C's Blood by [facility], ) Automated count Hematocrit 31.7 % Below low normal MEDGEN (St [Volume Juan C's Fraction] of [facility], ) Blood by Automated count Hemoglobin 10.8 Below low normal MEDGEN (St [Mass/volume] in g/dL Juan C's Blood [facility], ) MCV 97 fL Normal (applies MEDGEN (St to non-numeric Juan C's results) [facility], ) MCH 32.9 pg Normal (applies MEDGEN (St to non-numeric Juan C's results) [facility], ) RDW 17.5 % Above high normal [facility] ([facility], ) MCHC 34.1 Normal (applies MEDGEN (St g/dL to non-numeric Juan C's results) [facility]) Neutrophils [#] 53 % Normal (applies MEDGEN ( St in Body fluid by to non-numeric Juan C's Manual count results) [facility], ) Platelets 237 Normal (applies MEDGEN (St [#/area] in x10E3/uL to non-numeric Juan C's Blood by results) [facility], ) Microscopy high power field Lymphs 20 % Normal (applies MEDGEN (St to non-numeric Juan C's results) [facility], ) Eos 12 % Normal (applies MEDGEN (St to non-numeric Juan C's results) [facility]) Basos 1 % Normal (applies MEDGEN (St to non-numeric Juan C's results) [facility]) Monocytes 13 % Normal (applies MEDGEN (St [#/volume] in to non-numeric Juan C's Cord blood results) [facility]) Neutrophils 6.2 Normal (applies MEDGEN (St (Absolute) x10E3/uL to non-numeric Juan C's results) [facility], ) Eos (Absolute) 1.5 Above high normal MEDGEN (St x10E3/uL Juan C's [facility], ) Monocytes(Absolu 1.5 Above high normal MEDGE N (St te) x10E3/uL [facility]) Lymphs 2.4 Normal (applies MEDGEN (St (Absolute) x10E3/uL to non-numeric Juan C's results) [facility]) Immature 1 % Normal (applies MEDGEN (St Granulocytes to non-numeric Juan C's results) [facility]) Baso (Absolute) 0.1 Normal (applies MEDGEN ( St x10E3/uL to non-numeric Juan C's results) [facility], ) Immature Grans 0.2 Above high normal [facility]GEN (St (Abs) x10E3/uL [facility], ) Hematology Note: Normal (applies MEDGEN (St Comments: to non-numeric Juan C's results) [facility], ) Leukocytes 9.5 Normal (applies MEDGEN (St [#/volume] in x10E3/uL to non-numeric Juan C's Blood by results) [facility]) Automated count Erythrocytes 3.28 Below low normal [facility] (St [#/volume] in x10E6/uL Juan C's Blood by [facility], ) Automated count Hemoglobin 10.9 Below low normal [facility]GEN (St [Mass/volume] in g/dL [facility] Blood [facility], ) MCV 98 fL Above high normal [facility] ([facility], ) Hematocrit 32.1 % Below low normal MEDGEN (St [Volume Juan C's Fraction] of [facility], ) Blood by Automated count MCHC 34.0 Normal (applies MEDGEN (St g/dL to non-numeric Juan C's results) [facility], ) MCH 33.2 pg Above high normal [facility] ([facility], ) Platelets 240 Normal (applies MEDGEN (St [#/area] in x10E3/uL to non-numeric Juan C's Blood by results) [facility], ) Microscopy high power field RDW 17.3 % Above high normal [facility]GEN ([facility], ) Neutrophils [#] 53 % Normal (applies MEDGEN ( St in Body fluid by to non-numeric Juan C's Manual count results) [facility], ) Lymphs 19 % Normal (applies MEDGEN (St to non-numeric Juan C's results) [facility], ) Monocytes 15 % Normal (applies MEDGEN (St [#/volume] in to non-numeric Juan C's Cord blood results) [facility], ) Basos 0 % Normal (applies MEDGEN (St to non-numeric Juan C's results) [facility]) Eos 11 % Normal (applies MEDGEN (St to non-numeric Juan C's results) [facility]) Lymphs 1.8 Normal (applies MEDGEN (St (Absolute) x10E3/uL to non-numeric Juan C's results) [facility]) Neutrophils 5.1 Normal (applies MEDGEN (St (Absolute) x10E3/uL to non-numeric Juan C's results) [facility]) Eos (Absolute) 1.0 Above high normal [facility] (St x10E3/uL Juan C's [facility], ) Monocytes(Absolu 1.5 Above high normal MEDGE N (St te) x10E3/uL [facility], ) Immature 2 % Normal (applies [facility]GEN (St Granulocytes to non-numeric Juan C's results) Medical, ) Baso (Absolute) 0.0 Normal (applies MEDGEN ( St x10E3/uL to non-numeric Juan C's results) Medical, ) Immature Grans 0.2 Above high normal MEDGEN (St (Abs) x10E3/uL [facility], ) Hematology Note: Normal (applies MEDGEN (St Comments: to non-numeric Juan C's results) Medical, ) ID Date Data Source [id number] 08/27/2019 12:00:00 AM EST [facility] ([facility], ) Name Value Range Interpretation Code Description Data Lisa rce(s) Supporting Document(s ) TSH 3.560 Normal (applies to [facility]GEN (St uIU/mL non-numeric Juan C's results) Medical, ) T4,Free(D 1.22 ng/dL Normal (applies to [facility] (St irect) non-numeric Juan C's results) Medical, ) ID Date Data Source [id number] 08/27/2019 12:00:00 AM EST [facility] ([facility], ) Name Value Range Interpretation Description Data Sup porting Code Source(s) Document(s ) No Urine Test not Normal (applies to MEDGEN (St Received performed non-numeric Juan C's . results) Medical, ) ID Date Data Source [id number] 08/27/2019 12:00:00 AM EST [facility] ([facility], ) Name Value Range Interpretation Description Data Sup porting Code Source(s) Document(s ) Vitamin D, 42.8 Normal (applies to [facility]GEN (St 25-Hydroxy ng/mL non-numeric Juan C's results) Medical, ) Vitamin D, 36.2 Normal (applies to [facility]GEN (St 25-Hydroxy ng/mL non-numeric Juan C's results) Medical, ) ID Date Data Source [id number] 08/27/2019 12:00:00 AM EST [facility] ([facility], ) Name Value Range Interpretation Description Data Sup porting Code Source(s) Document(s ) Hemoglobin 6.2 % Above high normal MEDGEN (St A1c/Hemoglobin. Juan C's total in Blood [facility]) ID Date Data Source [id number] 08/27/2019 12:00:00 AM EST MEDGEN ([facility]) Name Value Range Interpretation Description Data Sup porting Code Source(s) Document(s ) Vitamin B12 385 pg/mL Normal (applies to MEDGEN (S t non-numeric Juan C's results) [facility]) Folate 10.5 Normal (applies to MEDGEN (St (Folic ng/mL non-numeric Juan C's Acid), Serum results) [facility]) ID Date Data Source [id number] 08/27/2019 12:00:00 AM EST MEDGEN ([facility]) Name Value Range Interpretation Description Data Sup porting Code Source(s) Document(s ) Cholesterol 80 mg/dL Below low normal MEDGEN (St [Mass/volume] in Juan C's Serum or Plasma [facility]) Triglyceride 200 Above high normal MEDGEN (S t [Mass/volume] in mg/dL Juan C's Serum or Plasma [facility]) HDL Cholesterol 25 mg/dL Below low normal [facility] ([facility], ) LDL Cholesterol 15 mg/dL Normal (applies MEDGEN ( St Calc to non-numeric Juan C's results) [facility]) VLDL Cholesterol 40 mg/dL Normal (applies MEDGEN (St Nils to non-numeric Juan C's results) [facility]) ID Date Data Source [id number] 08/27/2019 12:00:00 AM EST MEDGEN ([facility]) Name Value Range Interpretation Description Data Sup porting Code Source(s) Document(s ) Specific gravity Test not Normal (applies MEDGEN (St of Pericardial performe to non-numeric Juan C's fluid by d. results) [facility], ) Refractometry pH of Lower Test not Normal (applies MEDGEN (St respiratory performe to non-numeric Juan C's specimen d. results) [facility]) Protein Test not Normal (applies MEDGEN (St [Mass/volume] in performe to non-numeric Juan C's Lower d. results) [facility], ) respiratory specimen Glucose Test not Normal (applies MEDGEN (St [Mass/volume] in performe to non-numeric Juan C's Urine collected d. results) Medical, ) for unspecified duration Ketones Test not Normal (applies MEDGEN (St [Presence] in performe to non-numeric Juan C's Blood by Tablet d. results) Medical, ) ID Date Data Source [id number] 08/27/2019 12:00:00 AM EST [facility] ([facility], ) Name Value Range Interpretation Description Data Sup porting Code Source(s) Document(s ) Glucose 87 mg/dL Normal (applies MEDGEN (St [Mass/volume] in to non-numeric Juan C's Urine collected for results) Medical, unspecified ) duration Creatinine 2.81 Above high MEDGEN (St [Interpretation] in mg/dL normal Juan C's Urine [facility], ) Urea nitrogen 36 mg/dL Above high MEDGEN (St [Mass/volume] in normal Juan C's Serum or Plasma [facility], ) eGFR If Africn Am 24 Below low normal MEDGE N (St mL/min/[address], ) eGFR If NonAfricn 21 Below low normal MEDGE N (St Am mL/min/1 [facility], ) BUN/Creatinine 13 Normal (applies MEDGEN (S t Ratio to non-numeric Juan C's results) [facility], ) Sodium 135 Normal (applies MEDGEN (St [Moles/volume] in mmol/L to non-numeric Juan C's Serum or Plasma results) [facility], ) Potassium 4.1 Normal (applies MEDGEN (St [Mass/volume] in mmol/L to non-numeric Juan C's Blood results) [facility], ) Carbon dioxide, 20 Normal (applies MEDGEN ( St total mmol/L to non-numeric Juan C's [Moles/volume] in results) Medical, Serum or Plasma PC) Chloride 102 Normal (applies MEDGEN (St [Moles/volume] in mmol/L to non-numeric Juan C's Serum or Plasma results) [facility], ) Calcium 9.8 Normal (applies MEDGEN (St [Moles/volume] in mg/dL to non-numeric Juan C's Urine collected for results) Medical, unspecified ) duration Protein 9.0 g/dL Above high MEDGEN (St [Mass/volume] in normal Juan C's Serum or Plasma [facility], ) Globulin, Total 4.8 g/dL Above high MEDGEN (St normal [facility], ) Microalbumin 4.2 g/dL Normal (applies MEDGEN (St [Mass/time] in to non-numeric Juan C's Urine collected for results) [facility], unspecified ) duration A/G Ratio 0.9 Below low normal [facility] ([facility], ) Bilirubin.total 0.3 Normal (applies MEDGEN ( St [Mass/volume] in mg/dL to non-numeric Juan C's Serum or Plasma results) [facility], ) Alkaline 53 IU/L Normal (applies MEDGEN (St phosphatase to non-numeric Juan C's [Enzymatic results) Medical, activity/volume] in ) Serum, Plasma or Blood Alanine 20 IU/L Normal (applies MEDGEN (St aminotransferase to non-numeric Juan C's [Enzymatic results) Medical, activity/volume] in ) Serum or Plasma Aspartate 22 IU/L Normal (applies MEDGEN (St aminotransferase to non-numeric Juan C's [Enzymatic results) [facility], activity/volume] in ) Serum or Plasma ID Date Data Source [id number] 08/27/2019 12:00:00 AM EST [facility] ([facility], ) Name Value Range Interpretation Description Data Sup porting Code Source(s) Document(s ) Erythrocytes 3.28 Below low normal MEDGEN (St [#/volume] in x10E6/uL Juan C's Blood by [facility], ) Automated count Leukocytes 11.8 Above high normal MEDGEN (St [#/volume] in x10E3/uL Juan C's Blood by [facility], ) Automated count Hemoglobin 10.8 Below low normal MEDGEN (St [Mass/volume] in g/dL Juan C's Blood [facility], ) Hematocrit 31.7 % Below low normal MEDGEN (St [Volume Juan C's Fraction] of [facility], ) Blood by Automated count MCV 97 fL Normal (applies MEDGEN (St to non-numeric Juan C's results) [facility], ) MCH 32.9 pg Normal (applies MEDGEN (St to non-numeric Juan C's results) [facility], ) MCHC 34.1 Normal (applies MEDGEN (St g/dL to non-numeric Juan C's results) [facility], ) Platelets 237 Normal (applies MEDGEN (St [#/area] in x10E3/uL to non-numeric Juan C's Blood by results) [facility], ) Microscopy high power field RDW 17.5 % Above high normal [facility] ([facility], ) Lymphs 20 % Normal (applies MEDGEN (St to non-numeric Juan C's results) [facility]) Neutrophils [#] 53 % Normal (applies MEDGEN ( St in Body fluid by to non-numeric Juan C's Manual count results) [facility]) Monocytes 13 % Normal (applies MEDGEN (St [#/volume] in to non-numeric Juan C's Cord blood results) [facility], ) Eos 12 % Normal (applies MEDGEN (St to non-numeric Juan C's results) [facility], ) Basos 1 % Normal (applies MEDGEN (St to non-numeric Juan C's results) [facility]) Neutrophils 6.2 Normal (applies MEDGEN (St (Absolute) x10E3/uL to non-numeric Juan C's results) [facility]) Lymphs 2.4 Normal (applies MEDGEN (St (Absolute) x10E3/uL to non-numeric Juan C's results) [facility], ) Monocytes(Absolu 1.5 Above high normal MEDGE N (St te) x10E3/uL Juan C's [facility], ) Eos (Absolute) 1.5 Above high normal MEDGEN (St x10E3/uL Juan C's [facility], ) Immature 1 % Normal (applies MEDGEN (St Granulocytes to non-numeric Juan C's results) [facility]) Baso (Absolute) 0.1 Normal (applies MEDGEN ( St x10E3/uL to non-numeric Juan C's results) [facility], ) Immature Grans 0.2 Above high normal MEDGEN (St (Abs) x10E3/uL Juan C's [facility], ) Hematology Note: Normal (applies MEDGEN (St Comments: to non-numeric Juan C's results) [facility], ) Leukocytes 9.5 Normal (applies MEDGEN (St [#/volume] in x10E3/uL to non-numeric Juan C's Blood by results) [facility], ) Automated count Erythrocytes 3.28 Below low normal MEDGEN (St [#/volume] in x10E6/uL Juan C's Blood by [facility], ) Automated count Hemoglobin 10.9 Below low normal MEDGEN (St [Mass/volume] in g/dL Juan C's Blood [facility], ) Hematocrit 32.1 % Below low normal MEDGEN (St [Volume Juan C's Fraction] of [facility]) Blood by Automated count MCV 98 fL Above high normal [facility] ([facility], ) MCH 33.2 pg Above high normal [facility] ([facility], ) MCHC 34.0 Normal (applies MEDGEN (St g/dL to non-numeric Juan C's results) [facility]) RDW 17.3 % Above high normal [facility] ([facility]) Platelets 240 Normal (applies MEDGEN (St [#/area] in x10E3/uL to non-numeric Juan C's Blood by results) [facility]) Microscopy high power field Lymphs 19 % Normal (applies MEDGEN (St to non-numeric Juan C's results) [facility]) Neutrophils [#] 53 % Normal (applies MEDGEN ( St in Body fluid by to non-numeric Juan C's Manual count results) [facility]) Monocytes 15 % Normal (applies MEDGEN (St [#/volume] in to non-numeric Juan C's Cord blood results) [facility]) Eos 11 % Normal (applies MEDGEN (St to non-numeric Juan C's results) [facility]) Basos 0 % Normal (applies MEDGEN (St to non-numeric Juan C's results) [facility]) Lymphs 1.8 Normal (applies MEDGEN (St (Absolute) x10E3/uL to non-numeric Juan C's results) [facility]) Neutrophils 5.1 Normal (applies MEDGEN (St (Absolute) x10E3/uL to non-numeric Juan C's results) [facility]) Eos (Absolute) 1.0 Above high normal MEDGEN (St x10E3/uL Juan C's [facility]) Monocytes(Absolu 1.5 Above high normal MEDGE N (St te) x10E3/uL [facility]) Baso (Absolute) 0.0 Normal (applies MEDGEN ( St x10E3/uL to non-numeric Juan C's results) [facility]) Immature 2 % Normal (applies MEDGEN (St Granulocytes to non-numeric Juan C's results) [facility]) Immature Grans 0.2 Above high normal MEDGEN (St (Abs) x10E3/uL [facility]'s [facility]) Hematology Note: Normal (applies MEDGEN (St Comments: to non-numeric Juan C's results) Medical, ) ID Date Data Source [id number] 08/27/2019 12:00:00 AM EST MEDGEN ([facility], ) Name Value Range Interpretation Code Description Data Lisa rce(s) Supporting Document(s ) T4,Free(D 1.22 ng/dL Normal (applies to MEDGEN (St irect) non-numeric Juan C's results) Medical, ) TSH 3.560 Normal (applies to MEDGEN (St uIU/mL non-numeric Juan C's results) [facility], ) ID Date Data Source [id number] 08/27/2019 12:00:00 AM EST MEDGEN ([facility], ) Name Value Range Interpretation Description Data Sup porting Code Source(s) Document(s ) Cholesterol 80 mg/dL Below low normal MEDGEN (St [Mass/volume] in Juan C's Serum or Plasma [facility], ) Triglyceride 200 Above high normal MEDGEN (S t [Mass/volume] in mg/dL [facility]'s Serum or Plasma [facility], ) HDL Cholesterol 25 mg/dL Below low normal [facility] ([facility], ) VLDL Cholesterol 40 mg/dL Normal (applies MEDGEN (St Nils to non-numeric Juan C's results) [facility], ) LDL Cholesterol 15 mg/dL Normal (applies MEDGEN ( St Calc to non-numeric Juan C's results) [facility], ) ID Date Data Source [id number] 08/27/2019 12:00:00 AM EST MEDGEN ([facility], ) Name Value Range Interpretation Description Data Sup porting Code Source(s) Document(s ) Specific gravity Test not Normal (applies MEDGEN (St of Pericardial performe to non-numeric Juan C's fluid by d. results) Medical, ) Refractometry pH of Lower Test not Normal (applies MEDGEN (St respiratory performe to non-numeric Juan C's specimen d. results) Medical, ) Protein Test not Normal (applies MEDGEN (St [Mass/volume] in performe to non-numeric Juan C's Lower d. results) Medical, ) respiratory specimen Glucose Test not Normal (applies MEDGEN (St [Mass/volume] in performe to non-numeric Juan C's Urine collected d. results) Medical, ) for unspecified duration Ketones Test not Normal (applies MEDGEN (St [Presence] in performe to non-numeric Juan C's Blood by Tablet d. results) Medical, ) ID Date Data Source [id number] 08/27/2019 12:00:00 AM EST [facility] ([facility], ) Name Value Range Interpretation Description Data Sup porting Code Source(s) Document(s ) Glucose 87 mg/dL Normal (applies MEDGEN (St [Mass/volume] in to non-numeric Juan C's Urine collected for results) Medical, unspecified ) duration Urea nitrogen 36 mg/dL Above high MEDGEN (St [Mass/volume] in normal Juan C's Serum or Plasma Medical, ) Creatinine 2.81 Above high MEDGEN (St [Interpretation] in mg/dL normal Juan C's Urine Medical, ) eGFR If NonAfricn 21 Below low normal MEDGE N (St Am mL/min/1 [facility] .73 [facility], ) eGFR If Africn Am 24 Below low normal MEDGE N (St [facility]/min/1 [facility], ) BUN/Creatinine 13 Normal (applies MEDGEN (S t Ratio to non-numeric Juan C's results) Medical, ) Sodium 135 Normal (applies MEDGEN (St [Moles/volume] in mmol/L to non-numeric Juan C's Serum or Plasma results) Medical, ) Potassium 4.1 Normal (applies MEDGEN (St [Mass/volume] in mmol/L to non-numeric Juan C's Blood results) Medical, ) Chloride 102 Normal (applies MEDGEN (St [Moles/volume] in mmol/L to non-numeric Juan C's Serum or Plasma results) Medical, ) Carbon dioxide, 20 Normal (applies MEDGEN ( St total mmol/L to non-numeric Juan C's [Moles/volume] in results) Medical, Serum or Plasma [facility]) Calcium 9.8 Normal (applies MEDGEN (St [Moles/volume] in mg/dL to non-numeric Juan C's Urine collected for results) Medical, unspecified ) duration Protein 9.0 g/dL Above high MEDGEN (St [Mass/volume] in normal Juan C's Serum or Plasma Medical, ) Microalbumin 4.2 g/dL Normal (applies MEDGEN (St [Mass/time] in to non-numeric Juan C's Urine collected for results) Medical, unspecified ) duration Globulin, Total 4.8 g/dL Above high MEDGEN (St normal [facility], ) A/G Ratio 0.9 Below low normal MEDGEN ([facility], ) Bilirubin.total 0.3 Normal (applies MEDGEN ( St [Mass/volume] in mg/dL to non-numeric Juan C's Serum or Plasma results) [facility], ) Alkaline 53 IU/L Normal (applies MEDGEN (St phosphatase to non-numeric Juan C's [Enzymatic results) Medical, activity/volume] in ) Serum, Plasma or Blood Aspartate 22 IU/L Normal (applies MEDGEN (St aminotransferase to non-numeric Juan C's [Enzymatic results) Medical, activity/volume] in ) Serum or Plasma Alanine 20 IU/L Normal (applies MEDGEN (St aminotransferase to non-numeric Juan C's [Enzymatic results) Medical, activity/volume] in ) Serum or Plasma ID Date Data Source [id number] 08/27/2019 12:00:00 AM EST [facility] ([facility], ) Name Value Range Interpretation Description Data Sup porting Code Source(s) Document(s ) Leukocytes 11.8 Above high normal MEDGEN (St [#/volume] in x10E3/uL Juan C's Blood by [facility], ) Automated count Erythrocytes 3.28 Below low normal MEDGEN (St [#/volume] in x10E6/uL Juan C's Blood by [facility], ) Automated count Hemoglobin 10.8 Below low normal MEDGEN (St [Mass/volume] in g/dL Juan C's Blood [facility], ) Hematocrit 31.7 % Below low normal MEDGEN (St [Volume Juan C's Fraction] of [facility], ) Blood by Automated count MCV 97 fL Normal (applies MEDGEN (St to non-numeric Juan C's results) [facility], ) MCH 32.9 pg Normal (applies MEDGEN (St to non-numeric Juan C's results) [facility], ) MCHC 34.1 Normal (applies MEDGEN (St g/dL to non-numeric Juan C's results) [facility], ) RDW 17.5 % Above high normal [facility] ([facility], ) Platelets 237 Normal (applies MEDGEN (St [#/area] in x10E3/uL to non-numeric Juan C's Blood by results) [facility], ) Microscopy high power field Neutrophils [#] 53 % Normal (applies MEDGEN ( St in Body fluid by to non-numeric Juan C's Manual count results) [facility], ) Lymphs 20 % Normal (applies MEDGEN (St to non-numeric Juan C's results) [facility]) Monocytes 13 % Normal (applies MEDGEN (St [#/volume] in to non-numeric Juan C's Cord blood results) [facility]) Eos 12 % Normal (applies MEDGEN (St to non-numeric Juan C's results) [facility]) Basos 1 % Normal (applies MEDGEN (St to non-numeric Juan C's results) [facility]) Neutrophils 6.2 Normal (applies MEDGEN (St (Absolute) x10E3/uL to non-numeric Juan C's results) [facility]) Lymphs 2.4 Normal (applies MEDGEN (St (Absolute) x10E3/uL to non-numeric Juan C's results) [facility]) Monocytes(Absolu 1.5 Above high normal MEDGE N (St te) x10E3/uL [facility]'s [facility]) Eos (Absolute) 1.5 Above high normal MEDGEN (St x10E3/uL Juan C's [facility], ) Baso (Absolute) 0.1 Normal (applies MEDGEN ( St x10E3/uL to non-numeric Juan C's results) [facility], ) Immature 1 % Normal (applies MEDGEN (St Granulocytes to non-numeric Juan C's results) [facility]) Immature Grans 0.2 Above high normal MEDGEN (St (Abs) x10E3/uL Juan C's [facility]) Hematology Note: Normal (applies MEDGEN (St Comments: to non-numeric Juan C's results) [facility], ) ID Date Data Source [id number] 08/27/2019 12:00:00 AM EST [facility] ([facility], ) Name Value Range Interpretation Code Description Data Ilsa rce(s) Supporting Document(s ) TSH 3.560 Normal (applies to MEDGEN (St uIU/mL non-numeric Juan C's results) [facility]) T4,Free(D 1.22 ng/dL Normal (applies to MEDGEN (St irect) non-numeric Juan C's results) [facility]) ID Date Data Source [id number] 08/27/2019 12:00:00 AM EST [facility] ([facility], ) Name Value Range Interpretation Description Data Sup porting Code Source(s) Document(s ) No Urine Test not Normal (applies to MEDGEN (St Received performed non-numeric Juan C's . results) Medical, ) ID Date Data Source [id number] 08/27/2019 12:00:00 AM EST MED[facility] ([facility], ) Name Value Range Interpretation Description Data Sup porting Code Source(s) Document(s ) Vitamin D, 42.8 Normal (applies to MEDGEN (St 25-Hydroxy ng/mL non-numeric Juan C's results) Medical, ) ID Date Data Source [id number] 08/27/2019 12:00:00 AM EST MEDGEN ([facility], ) Name Value Range Interpretation Description Data Sup porting Code Source(s) Document(s ) Hemoglobin 6.2 % Above high normal MEDGEN (St A1c/Hemoglobin. Juan C's total in Blood [facility], ) ID Date Data Source [id number] 08/27/2019 12:00:00 AM EST MEDGEN ([facility], ) Name Value Range Interpretation Description Data Sup porting Code Source(s) Document(s ) Folate 10.5 Normal (applies to MEDGEN (St (Folic ng/mL non-numeric Juan C's Acid), Serum results) Medical, ) Vitamin B12 385 pg/mL Normal (applies to MEDGEN (S t non-numeric Juan C's results) [facility], ) ID Date Data Source [id number] 08/27/2019 12:00:00 AM EST MEDGEN ([facility], ) Name Value Range Interpretation Description Data Sup porting Code Source(s) Document(s ) Cholesterol 80 mg/dL Below low normal MEDGEN (St [Mass/volume] in Juan C's Serum or Plasma Medical, ) Triglyceride 200 Above high normal MEDGEN (S t [Mass/volume] in mg/dL Juan C's Serum or Plasma [facility], ) HDL Cholesterol 25 mg/dL Below low normal [facility] ([facility], ) VLDL Cholesterol 40 mg/dL Normal (applies MEDGEN (St Nils to non-numeric Juan C's results) Medical, ) LDL Cholesterol 15 mg/dL Normal (applies MEDGEN ( St Calc to non-numeric Juan C's results) [facility], ) ID Date Data Source [id number] 08/27/2019 12:00:00 AM EST MEDGEN ([facility], ) Name Value Range Interpretation Description Data Sup porting Code Source(s) Document(s ) Specific gravity Test not Normal (applies MEDGEN (St of Pericardial performe to non-numeric Juan C's fluid by d. results) Medical, ) Refractometry pH of Lower Test not Normal (applies MEDGEN (St respiratory performe to non-numeric Juan C's specimen d. results) Medical, ) Protein Test not Normal (applies MEDGEN (St [Mass/volume] in performe to non-numeric Juan C's Lower d. results) Medical, ) respiratory specimen Ketones Test not Normal (applies MEDGEN (St [Presence] in performe to non-numeric Juan C's Blood by Tablet d. results) [facility], ) Glucose Test not Normal (applies MEDGEN (St [Mass/volume] in performe to non-numeric Juan C's Urine collected d. results) [facility], ) for unspecified duration ID Date Data Source [id number] 08/27/2019 12:00:00 AM EST MEDGEN ([facility], ) Name Value Range Interpretation Description Data Sup porting Code Source(s) Document(s ) Glucose 87 mg/dL Normal (applies MEDGEN (St [Mass/volume] in to non-numeric Juan C's Urine collected for results) [facility], unspecified ) duration Urea nitrogen 36 mg/dL Above high MEDGEN (St [Mass/volume] in normal Juan C's Serum or Plasma [facility], ) Creatinine 2.81 Above high MEDGEN (St [Interpretation] in mg/dL normal Juan C's Urine [facility], ) eGFR If NonAfricn 21 Below low normal MEDGE N (St Am mL/min/1 Juan C's .73 [facility], ) eGFR If Africn Am 24 Below low normal MEDGE N (St mL/min/1 Juan C's .73 Medical, ) Sodium 135 Normal (applies MEDGEN (St [Moles/volume] in mmol/L to non-numeric Juan C's Serum or Plasma results) Medical, ) BUN/Creatinine 13 Normal (applies MEDGEN (S t Ratio to non-numeric Juan C's results) Medical, ) Potassium 4.1 Normal (applies MEDGEN (St [Mass/volume] in mmol/L to non-numeric Juan C's Blood results) Medical, ) Chloride 102 Normal (applies MEDGEN (St [Moles/volume] in mmol/L to non-numeric Juan C's Serum or Plasma results) Medical, ) Calcium 9.8 Normal (applies MEDGEN (St [Moles/volume] in mg/dL to non-numeric Juan C's Urine collected for results) Medical, unspecified ) duration Carbon dioxide, 20 Normal (applies MEDGEN ( St total mmol/L to non-numeric Juan C's [Moles/volume] in results) Medical, Serum or Plasma [facility]) Protein 9.0 g/dL Above high MEDGEN (St [Mass/volume] in normal Juan C's Serum or Plasma Medical, ) Microalbumin 4.2 g/dL Normal (applies MEDGEN (St [Mass/time] in to non-numeric Juan C's Urine collected for results) Medical, unspecified PC) duration Globulin, Total 4.8 g/dL Above high MEDGEN (St normal [facility], ) A/G Ratio 0.9 Below low normal MEDGEN ([facility], ) Bilirubin.total 0.3 Normal (applies MEDGEN ( St [Mass/volume] in mg/dL to non-numeric Juan C's Serum or Plasma results) Medical, ) Alkaline 53 IU/L Normal (applies MEDGEN (St phosphatase to non-numeric Juan C's [Enzymatic results) Medical, activity/volume] in PC) Serum, Plasma or Blood Aspartate 22 IU/L Normal (applies MEDGEN (St aminotransferase to non-numeric Juan C's [Enzymatic results) Medical, activity/volume] in PC) Serum or Plasma Alanine 20 IU/L Normal (applies MEDGEN (St aminotransferase to non-numeric Juan C's [Enzymatic results) Medical, activity/volume] in PC) Serum or Plasma ID Date Data Source [id number] 08/27/2019 12:00:00 AM EST MEDGEN (St [facility], ) Name Value Range Interpretation Description Data Sup porting Code Source(s) Document(s ) Leukocytes 11.8 Above high normal MEDGEN (St [#/volume] in x10E3/uL Juan C's Blood by [facility], ) Automated count Erythrocytes 3.28 Below low normal MEDGEN (St [#/volume] in x10E6/uL Juan C's Blood by [facility], ) Automated count Hemoglobin 10.8 Below low normal MEDGEN (St [Mass/volume] in g/dL Juan C's Blood [facility], ) MCV 97 fL Normal (applies MEDGEN (St to non-numeric Juan C's results) [facility], ) Hematocrit 31.7 % Below low normal MEDGEN (St [Volume Juan C's Fraction] of [facility], ) Blood by Automated count MCH 32.9 pg Normal (applies MEDGEN (St to non-numeric Juan C's results) [facility], ) MCHC 34.1 Normal (applies MEDGEN (St g/dL to non-numeric Juan C's results) [facility], ) RDW 17.5 % Above high normal [facility] ([facility], ) Platelets 237 Normal (applies MEDGEN (St [#/area] in x10E3/uL to non-numeric Juan C's Blood by results) [facility], ) Microscopy high power field Neutrophils [#] 53 % Normal (applies MEDGEN ( St in Body fluid by to non-numeric Juan C's Manual count results) [facility], ) Lymphs 20 % Normal (applies MEDGEN (St to non-numeric Juan C's results) [facility], ) Eos 12 % Normal (applies MEDGEN (St to non-numeric Juan C's results) [facility], ) Monocytes 13 % Normal (applies MEDGEN (St [#/volume] in to non-numeric Juan C's Cord blood results) [facility], ) Basos 1 % Normal (applies MEDGEN (St to non-numeric Juan C's results) [facility], ) Neutrophils 6.2 Normal (applies MEDGEN (St (Absolute) x10E3/uL to non-numeric Juan C's results) [facility], ) Monocytes(Absolu 1.5 Above high normal MEDGE N (St te) x10E3/uL Juan C's [facility], ) Lymphs 2.4 Normal (applies MEDGEN (St (Absolute) x10E3/uL to non-numeric Juan C's results) [facility], ) Eos (Absolute) 1.5 Above high normal MEDGEN (St x10E3/uL Juan C's [facility], ) Baso (Absolute) 0.1 Normal (applies MEDGEN ( St x10E3/uL to non-numeric Juan C's results) [facility], ) Immature 1 % Normal (applies MEDGEN (St Granulocytes to non-numeric Juan C's results) Medical, ) Immature Grans 0.2 Above high normal MEDGEN (St (Abs) x10E3/uL Juan C's [facility], ) Hematology Note: Normal (applies MEDGEN (St Comments: to non-numeric Juan C's results) [facility], ) ID Date Data Source [id number] 08/27/2019 12:00:00 AM EST [facility] ([facility], ) Name Value Range Interpretation Code Description Data Lisa rce(s) Supporting Document(s ) TSH 3.560 Normal (applies to MEDGEN (St uIU/mL non-numeric Juan C's results) Medical, ) T4,Free(D 1.22 ng/dL Normal (applies to MEDGEN (St irect) non-numeric Juan C's results) [facility], ) ID Date Data Source [id number] 08/27/2019 12:00:00 AM EST [facility] ([facility], ) Name Value Range Interpretation Description Data Sup porting Code Source(s) Document(s ) No Urine Test not Normal (applies to MEDGEN (St Received performed non-numeric Juan C's . results) Medical, ) ID Date Data Source [id number] 08/27/2019 12:00:00 AM EST [facility] ([facility], ) Name Value Range Interpretation Description Data Sup porting Code Source(s) Document(s ) Vitamin D, 42.8 Normal (applies to MEDGEN (St 25-Hydroxy ng/mL non-numeric Juan C's results) [facility], ) ID Date Data Source [id number] 08/27/2019 12:00:00 AM EST [facility] ([facility], ) Name Value Range Interpretation Description Data Sup porting Code Source(s) Document(s ) Hemoglobin 6.2 % Above high normal MEDGEN (St A1c/Hemoglobin. Juan C's total in Blood [facility], ) ID Date Data Source [id number] 08/27/2019 12:00:00 AM EST [facility] ([facility], ) Name Value Range Interpretation Description Data Sup porting Code Source(s) Document(s ) Folate 10.5 Normal (applies to MEDGEN (St (Folic ng/mL non-numeric Juan C's Acid), Serum results) [facility], ) Vitamin B12 385 pg/mL Normal (applies to MEDGEN (S t non-numeric Juan C's results) Medical, ) ID Date Data Source [id number] 08/27/2019 12:00:00 AM EST MEDGEN ([facility]) Name Value Range Interpretation Description Data Sup porting Code Source(s) Document(s ) Cholesterol 80 mg/dL Below low normal MEDGEN (St [Mass/volume] in Juan C's Serum or Plasma [facility], ) Triglyceride 200 Above high normal MEDGEN (S t [Mass/volume] in mg/dL Juan C's Serum or Plasma [facility], ) HDL Cholesterol 25 mg/dL Below low normal MEDGEN ([facility], ) VLDL Cholesterol 40 mg/dL Normal (applies MEDGEN (St Nils to non-numeric Juan C's results) Medical, ) LDL Cholesterol 15 mg/dL Normal (applies MEDGEN ( St Calc to non-numeric Juan C's results) [facility], ) ID Date Data Source [id number] 08/27/2019 12:00:00 AM EST MEDGEN ([facility], ) Name Value Range Interpretation Description Data Sup porting Code Source(s) Document(s ) Specific gravity Test not Normal (applies MEDGEN (St of Pericardial performe to non-numeric Juan C's fluid by d. results) Medical, ) Refractometry pH of Lower Test not Normal (applies MEDGEN (St respiratory performe to non-numeric Juan C's specimen d. results) Medical, ) Protein Test not Normal (applies MEDGEN (St [Mass/volume] in performe to non-numeric Juan C's Lower d. results) Medical, ) respiratory specimen Glucose Test not Normal (applies MEDGEN (St [Mass/volume] in performe to non-numeric Juan C's Urine collected d. results) Medical, ) for unspecified duration Ketones Test not Normal (applies MEDGEN (St [Presence] in performe to non-numeric Juan C's Blood by Tablet d. results) Medical, ) ID Date Data Source [id number] 08/27/2019 12:00:00 AM EST MEDGEN ([facility], ) Name Value Range Interpretation Description Data Sup porting Code Source(s) Document(s ) Glucose 87 mg/dL Normal (applies MEDGEN (St [Mass/volume] in to non-numeric Juan C's Urine collected for results) [facility] ) duration Urea nitrogen 36 mg/dL Above high MEDGEN (St [Mass/volume] in normal Juan C's Serum or Plasma Medical, ) Creatinine 2.81 Above high MEDGEN (St [Interpretation] in mg/dL normal Juan C's Urine [facility], ) eGFR If NonAfricn 21 Below low normal MEDGE N (St Am mL/min/1 [facility]'s .73 [facility], ) BUN/Creatinine 13 Normal (applies MEDGEN (S t Ratio to non-numeric Juan C's results) Medical, PC) eGFR If Africn Am 24 Below low normal MEDGE N (St mL/min/1 [facility]'s .73 [facility], ) Sodium 135 Normal (applies MEDGEN (St [Moles/volume] in mmol/L to non-numeric Juan C's Serum or Plasma results) Medical, PC) Chloride 102 Normal (applies MEDGEN (St [Moles/volume] in mmol/L to non-numeric Juan C's Serum or Plasma results) Medical, ) Potassium 4.1 Normal (applies MEDGEN (St [Mass/volume] in mmol/L to non-numeric Juan C's Blood results) [facility], ) Carbon dioxide, 20 Normal (applies MEDGEN ( St total mmol/L to non-numeric Juan C's [Moles/volume] in results) Medical, Serum or Plasma PC) Calcium 9.8 Normal (applies MEDGEN (St [Moles/volume] in mg/dL to non-numeric Juan C's Urine collected for results) Medical, unspecified PC) duration Protein 9.0 g/dL Above high MEDGEN (St [Mass/volume] in normal Juan C's Serum or Plasma [facility], ) Microalbumin 4.2 g/dL Normal (applies MEDGEN (St [Mass/time] in to non-numeric Juan C's Urine collected for results) Medical, unspecified PC) duration Globulin, Total 4.8 g/dL Above high MEDGEN (St normal [facility]'s Medical, ) A/G Ratio 0.9 Below low normal [facility] ([facility], ) Alkaline 53 IU/L Normal (applies MEDGEN (St phosphatase to non-numeric Juan C's [Enzymatic results) Medical, activity/volume] in PC) Serum, Plasma or Blood Bilirubin.total 0.3 Normal (applies MEDGEN ( St [Mass/volume] in mg/dL to non-numeric Juan C's Serum or Plasma results) Medical, ) Aspartate 22 IU/L Normal (applies MEDGEN (St aminotransferase to non-numeric Juan C's [Enzymatic results) Medical, activity/volume] in ) Serum or Plasma Alanine 20 IU/L Normal (applies MEDGEN (St aminotransferase to non-numeric Juan C's [Enzymatic results) Medical, activity/volume] in ) Serum or Plasma ID Date Data Source [id number] 08/27/2019 12:00:00 AM EST [facility] ([facility], ) Name Value Range Interpretation Description Data Sup porting Code Source(s) Document(s ) Leukocytes 11.8 Above high normal MEDGEN (St [#/volume] in x10E3/uL Juan C's Blood by [facility], ) Automated count Erythrocytes 3.28 Below low normal MEDGEN (St [#/volume] in x10E6/uL Juan C's Blood by [facility], ) Automated count Hematocrit 31.7 % Below low normal MEDGEN (St [Volume Juan C's Fraction] of [facility], ) Blood by Automated count Hemoglobin 10.8 Below low normal MEDGEN (St [Mass/volume] in g/dL Juan C's Blood [facility], ) MCV 97 fL Normal (applies MEDGEN (St to non-numeric Juan C's results) [facility], ) MCHC 34.1 Normal (applies MEDGEN (St g/dL to non-numeric Juan C's results) [facility], ) MCH 32.9 pg Normal (applies MEDGEN (St to non-numeric Juan C's results) [facility], ) RDW 17.5 % Above high normal MEDGEN ([facility], ) Platelets 237 Normal (applies MEDGEN (St [#/area] in x10E3/uL to non-numeric Juan C's Blood by results) [facility], ) Microscopy high power field Neutrophils [#] 53 % Normal (applies MEDGEN ( St in Body fluid by to non-numeric Juan C's Manual count results) [facility], ) Lymphs 20 % Normal (applies MEDGEN (St to non-numeric Juan C's results) [facility], ) Monocytes 13 % Normal (applies MEDGEN (St [#/volume] in to non-numeric Juan C's Cord blood results) [facility], ) Basos 1 % Normal (applies MEDGEN (St to non-numeric Juan C's results) [facility], ) Eos 12 % Normal (applies MEDGEN (St to non-numeric Juan C's results) [facility], ) Neutrophils 6.2 Normal (applies MEDGEN (St (Absolute) x10E3/uL to non-numeric Juan C's results) [facility], ) Lymphs 2.4 Normal (applies MEDGEN (St (Absolute) x10E3/uL to non-numeric Juan C's results) [facility], ) Monocytes(Absolu 1.5 Above high normal MEDGE N (St te) x10E3/uL Juan C's [facility], ) Eos (Absolute) 1.5 Above high normal MEDGEN (St x10E3/uL Juan C's [facility], ) Immature 1 % Normal (applies MEDGEN (St Granulocytes to non-numeric Juan C's results) [facility], ) Baso (Absolute) 0.1 Normal (applies MEDGEN ( St x10E3/uL to non-numeric Juan C's results) [facility], ) Hematology Note: Normal (applies MEDGEN (St Comments: to non-numeric Juan C's results) [facility], ) Immature Grans 0.2 Above high normal MEDGEN (St (Abs) x10E3/uL Juan C's [facility], ) ID Date Data Source [id number] 08/27/2019 12:00:00 AM EST MED[facility] ([facility], ) Name Value Range Interpretation Code Description Data Lisa rce(s) Supporting Document(s ) TSH 3.560 Normal (applies to MEDGEN (St uIU/mL non-numeric Juan C's results) [facility], ) T4,Free(D 1.22 ng/dL Normal (applies to MEDGEN (St irect) non-numeric Juan C's results) [facility], ) ID Date Data Source [id number] 08/27/2019 12:00:00 AM EST [facility] ([facility], ) Name Value Range Interpretation Description Data Sup porting Code Source(s) Document(s ) No Urine Test not Normal (applies to MEDGEN (St Received performed non-numeric Juan C's . results) [facility]) ID Date Data Source [id number] 08/27/2019 12:00:00 AM EST [facility] ([facility], ) Name Value Range Interpretation Description Data Sup porting Code Source(s) Document(s ) Vitamin D, 42.8 Normal (applies to MEDGEN (St 25-Hydroxy ng/mL non-numeric Juan C's results) [facility], ) ID Date Data Source [id number] 08/27/2019 12:00:00 AM EST MEDGEN ([facility], ) Name Value Range Interpretation Description Data Sup porting Code Source(s) Document(s ) Hemoglobin 6.2 % Above high normal MEDGEN (St A1c/Hemoglobin. Juan C's total in Blood [facility], ) ID Date Data Source [id number] 08/27/2019 12:00:00 AM EST MEDGEN ([facility], ) Name Value Range Interpretation Description Data Sup porting Code Source(s) Document(s ) Vitamin B12 385 pg/mL Normal (applies to MEDGEN (S t non-numeric Juan C's results) [facility], ) Folate 10.5 Normal (applies to MEDGEN (St (Folic ng/mL non-numeric Juan C's Acid), Serum results) [facility], ) ID Date Data Source [id number] 08/27/2019 12:00:00 AM EST MEDGEN ([facility], ) Name Value Range Interpretation Description Data Sup porting Code Source(s) Document(s ) Cholesterol 80 mg/dL Below low normal MEDGEN (St [Mass/volume] in Juan C's Serum or Plasma [facility], ) Triglyceride 200 Above high normal MEDGEN (S t [Mass/volume] in mg/dL Juan C's Serum or Plasma [facility], ) HDL Cholesterol 25 mg/dL Below low normal [facility] ([facility], ) LDL Cholesterol 15 mg/dL Normal (applies MEDGEN ( St Calc to non-numeric Juan C's results) [facility]) VLDL Cholesterol 40 mg/dL Normal (applies MEDGEN (St Nils to non-numeric Juan C's results) [facility], ) ID Date Data Source [id number] 08/27/2019 12:00:00 AM EST MEDGEN ([facility], ) Name Value Range Interpretation Description Data Sup porting Code Source(s) Document(s ) Specific gravity Test not Normal (applies MEDGEN (St of Pericardial performe to non-numeric Juan C's fluid by d. results) [facility], ) Refractometry Protein Test not Normal (applies MEDGEN (St [Mass/volume] in performe to non-numeric Juan C's Lower d. results) Medical, ) respiratory specimen pH of Lower Test not Normal (applies MEDGEN (St respiratory performe to non-numeric Juan C's specimen d. results) Medical, ) Ketones Test not Normal (applies MEDGEN (St [Presence] in performe to non-numeric Juan C's Blood by Tablet d. results) Medical, ) Glucose Test not Normal (applies MEDGEN (St [Mass/volume] in performe to non-numeric Juan C's Urine collected d. results) Medical, ) for unspecified duration ID Date Data Source [id number] 08/27/2019 12:00:00 AM EST [facility] ([facility], ) Name Value Range Interpretation Description Data Sup porting Code Source(s) Document(s ) Glucose 87 mg/dL Normal (applies MEDGEN (St [Mass/volume] in to non-numeric Juan C's Urine collected for results) [facility], unspecified ) duration Urea nitrogen 36 mg/dL Above high MEDGEN (St [Mass/volume] in normal Juan C's Serum or Plasma Medical, ) Creatinine 2.81 Above high MEDGEN (St [Interpretation] in mg/dL normal Juan C's Urine [facility], ) eGFR If NonAfricn 21 Below low normal MEDGE N (St Am mL/min/1 [facility]'s .73 [facility], ) eGFR If Africn Am 24 Below low normal MEDGE N (St mL/min/1 [facility]'s .73 [facility], ) BUN/Creatinine 13 Normal (applies MEDGEN (S t Ratio to non-numeric Juan C's results) Medical, ) Sodium 135 Normal (applies MEDGEN (St [Moles/volume] in mmol/L to non-numeric Juan C's Serum or Plasma results) Medical, ) Potassium 4.1 Normal (applies MEDGEN (St [Mass/volume] in mmol/L to non-numeric Juan C's Blood results) Medical, ) Chloride 102 Normal (applies MEDGEN (St [Moles/volume] in mmol/L to non-numeric Juan C's Serum or Plasma results) Medical, ) Carbon dioxide, 20 Normal (applies MEDGEN ( St total mmol/L to non-numeric Juan C's [Moles/volume] in results) Medical, Serum or Plasma PC) Calcium 9.8 Normal (applies MEDGEN (St [Moles/volume] in mg/dL to non-numeric Juan C's Urine collected for results) Medical, unspecified ) duration Protein 9.0 g/dL Above high MEDGEN (St [Mass/volume] in normal Juan C's Serum or Plasma [facility], ) Microalbumin 4.2 g/dL Normal (applies MEDGEN (St [Mass/time] in to non-numeric Juan C's Urine collected for results) [facility], unspecified ) duration Globulin, Total 4.8 g/dL Above high MEDGEN (St normal [facility], ) Bilirubin.total 0.3 Normal (applies MEDGEN ( St [Mass/volume] in mg/dL to non-numeric Juan C's Serum or Plasma results) [facility], ) A/G Ratio 0.9 Below low normal MEDGEN ([facility], ) Alkaline 53 IU/L Normal (applies MEDGEN (St phosphatase to non-numeric Juan C's [Enzymatic results) [facility], activity/volume] in ) Serum, Plasma or Blood Aspartate 22 IU/L Normal (applies MEDGEN (St aminotransferase to non-numeric Juan C's [Enzymatic results) Medical, activity/volume] in ) Serum or Plasma Alanine 20 IU/L Normal (applies MEDGEN (St aminotransferase to non-numeric Juan C's [Enzymatic results) Medical, activity/volume] in ) Serum or Plasma ID Date Data Source [id number] 08/27/2019 12:00:00 AM EST [facility] ([facility], ) Name Value Range Interpretation Description Data Sup porting Code Source(s) Document(s ) Leukocytes 11.8 Above high normal MEDGEN (St [#/volume] in x10E3/uL Juan C's Blood by [facility], ) Automated count Erythrocytes 3.28 Below low normal MEDGEN (St [#/volume] in x10E6/uL Juan C's Blood by [facility], ) Automated count Hemoglobin 10.8 Below low normal MEDGEN (St [Mass/volume] in g/dL Juan C's Blood [facility], ) Hematocrit 31.7 % Below low normal MEDGEN (St [Volume Juan C's Fraction] of [facility], ) Blood by Automated count MCH 32.9 pg Normal (applies MEDGEN (St to non-numeric Juan C's results) [facility], ) MCV 97 fL Normal (applies MEDGEN (St to non-numeric Juan C's results) [facility], ) MCHC 34.1 Normal (applies MEDGEN (St g/dL to non-numeric Juan C's results) [facility], ) RDW 17.5 % Above high normal [facility] ([facility], ) Platelets 237 Normal (applies MEDGEN (St [#/area] in x10E3/uL to non-numeric Juan C's Blood by results) [facility], ) Microscopy high power field Lymphs 20 % Normal (applies MEDGEN (St to non-numeric Juan C's results) [facility], ) Neutrophils [#] 53 % Normal (applies MEDGEN ( St in Body fluid by to non-numeric Juan C's Manual count results) [facility], ) Monocytes 13 % Normal (applies MEDGEN (St [#/volume] in to non-numeric Juan C's Cord blood results) [facility], ) Eos 12 % Normal (applies MEDGEN (St to non-numeric Juan C's results) [facility], ) Basos 1 % Normal (applies MEDGEN (St to non-numeric Juan C's results) [facility], ) Neutrophils 6.2 Normal (applies MEDGEN (St (Absolute) x10E3/uL to non-numeric Juan C's results) [facility], ) Lymphs 2.4 Normal (applies MEDGEN (St (Absolute) x10E3/uL to non-numeric Juan C's results) [facility], ) Eos (Absolute) 1.5 Above high normal MEDGEN (St x10E3/uL Juan C's [facility], ) Monocytes(Absolu 1.5 Above high normal MEDGE N (St te) x10E3/uL [facility], ) Immature 1 % Normal (applies MEDGEN (St Granulocytes to non-numeric Juan C's results) [facility], ) Baso (Absolute) 0.1 Normal (applies MEDGEN ( St x10E3/uL to non-numeric Juan C's results) [facility], ) Immature Grans 0.2 Above high normal MEDGEN (St (Abs) x10E3/uL [facility], ) Hematology Note: Normal (applies MEDGEN (St Comments: to non-numeric Juan C's results) [facility], ) ID Date Data Source [id number] 08/27/2019 12:00:00 AM EST MED[facility] ([facility], ) Name Value Range Interpretation Code Description Data Lisa rce(s) Supporting Document(s ) TSH 3.560 Normal (applies to MEDGEN (St uIU/mL non-numeric Juan C's results) Medical, PC) T4,Free(D 1.22 ng/dL Normal (applies to MEDGEN (St irect) non-numeric Juan C's results) [facility], [facility]) Procedure Social History Code Duration Value Status Description Data Source(s ) Smoking 06/14/2020 Denies current completed Denies current MEDGEN (St 12:00:00 AM EDT tobacco use, tobacco use, [facility] Medical, Former smoker, 30+ Former smoker, 30 + PC) years ago, denies years ago, denies any alcohol or any alcohol or ilicit drug use. ilicit drug use. Retired Denies Retired Denies having a having a colonoscopy in the colonoscopy in past past Smoking 06/14/2020 Unknown if ever completed Unknown if ever MEDG EN (St 12:00:00 AM EDT smoked smoked [facility] Me dical, [facility]) Smoking 05/31/2020 Denies current completed Denies current MEDGEN (St 12:00:00 AM EDT tobacco use, tobacco use, [facility], Former smoker, 30+ Former smoker, 30 + PC) years ago, denies years ago, denies any alcohol or any alcohol or ilicit drug use. ilicit drug use. Retired Denies Retired Denies having a having a colonoscopy in the colonoscopy in e past past Smoking 05/31/2020 Unknown if ever completed Unknown if ever MEDG EN (St 12:00:00 AM EDT smoked smoked [facility] Me d[facility], [facility]) Smoking 05/31/2020 Denies current completed Denies current MEDGEN (St 12:00:00 AM EDT tobacco use, tobacco use, [facility] Medical, Former smoker, 30+ Former smoker, 30 + PC) years ago, denies years ago, denies any alcohol or any alcohol or ilicit drug use. ilicit drug use. Retired Denies Retired Denies having a having a colonoscopy in the colonoscopy in e past past Smoking 05/31/2020 Unknown if ever completed Unknown if ever MEDG EN (St 12:00:00 AM EDT smoked smoked [facility] Me [facility], [facility]) Smoking 05/15/2020 Denies current completed Denies current MEDGEN (St 12:00:00 AM EDT tobacco use, tobacco use, [facility] Medical, Former smoker, 30+ Former smoker, 30 + PC) years ago, denies years ago, denies any alcohol or any alcohol or ilicit drug use. ilicit drug use. Retired Denies Retired Denies having a having a colonoscopy in the colonoscopy in e past past Smoking 05/15/2020 Unknown if ever completed Unknown if ever MEDG EN (St 12:00:00 AM EDT smoked smoked [facility] Me d[facility], [facility]) Smoking 05/03/2020 Denies current completed Denies current MEDGEN (St 12:00:00 AM EDT tobacco use, tobacco use, [facility] Medical, Former smoker, 30+ Former smoker, 30 + PC) years ago, denies years ago, denies any alcohol or any alcohol or ilicit drug use. ilicit drug use. Retired Denies Retired Denies having a having a colonoscopy in the colonoscopy in e past past Smoking 05/03/2020 Unknown if ever completed Unknown if ever MEDG EN (St 12:00:00 AM EDT smoked smoked [facility] Me dical, PC) Smoking 04/26/2020 Denies current completed Denies current MEDGEN (St 12:00:00 AM EDT tobacco use, tobacco use, [facility] Medical, Former smoker, 30+ Former smoker, 30 + PC) years ago, denies years ago, denies any alcohol or any alcohol or ilicit drug use. ilicit drug use. Retired Denies Retired Denies having a having a colonoscopy in the colonoscopy in e past past Smoking 04/26/2020 Unknown if ever completed Unknown if ever MEDG EN (St 12:00:00 AM EDT smoked smoked [facility] Me dical, PC) Smoking 04/19/2020 Denies current completed Denies current MEDGEN (St 12:00:00 AM EDT tobacco use, tobacco use, [facility] Medical, Former smoker, 30+ Former smoker, 30 + PC) years ago, denies years ago, denies any alcohol or any alcohol or ilicit drug use. ilicit drug use. Retired Denies Retired Denies having a having a colonoscopy in the colonoscopy in e past past Smoking 04/19/2020 Unknown if ever completed Unknown if ever MEDG EN (St 12:00:00 AM EDT smoked smoked [facility] Me dical, PC) Smoking 04/12/2020 Denies current completed Denies current MEDGEN (St 12:00:00 AM EDT tobacco use, tobacco use, [facility] Medical, Former smoker, 30+ Former smoker, 30 + PC) years ago, denies years ago, denies any alcohol or any alcohol or ilicit drug use. ilicit drug use. Retired Denies Retired Denies having a having a colonoscopy in the colonoscopy in e past past Smoking 04/12/2020 Unknown if ever completed Unknown if ever MEDG EN (St 12:00:00 AM EDT smoked smoked [facility] Me dical, PC) Smoking 03/27/2020 Denies current completed Denies current MEDGEN (St 12:00:00 AM EDT tobacco use, tobacco use, [facility], Former smoker, 30+ Former smoker, 30 + PC) years ago, denies years ago, denies any alcohol or any alcohol or ilicit drug use. ilicit drug use. Retired Denies Retired Denies having a having a colonoscopy in the colonoscopy in e past past Smoking 03/27/2020 Unknown if ever completed Unknown if ever MEDG EN (St 12:00:00 AM EDT smoked smoked [facility] Me dical, PC) Smoking 03/24/2020 Denies current completed Denies current MEDGEN (St 12:00:00 AM EDT tobacco use, tobacco use, [facility], Former smoker, 30+ Former smoker, 30 + PC) years ago, denies years ago, denies any alcohol or any alcohol or ilicit drug use. ilicit drug use. Retired Denies Retired Denies having a having a colonoscopy in the colonoscopy in e past past Smoking 03/24/2020 Unknown if ever completed Unknown if ever MEDG EN (St 12:00:00 AM EDT smoked smoked [facility] Me dical, PC) Smoking 03/22/2020 Denies current completed Denies current MEDGEN (St 12:00:00 AM EDT tobacco use, tobacco use, [facility] Medical, Former smoker, 30+ Former smoker, 30 + PC) years ago, denies years ago, denies any alcohol or any alcohol or ilicit drug use. ilicit drug use. Retired Denies Retired Denies having a having a colonoscopy in the colonoscopy in th e past past Smoking 03/22/2020 Unknown if ever completed Unknown if ever MEDG EN (St 12:00:00 AM EDT smoked smoked [facility], ) Vital Signs ID Date Data Source UNK Name Value Range Interpretation Code Description Data Source(s) Heart rate 84 /min 84 /min MED[facility] ([facility] , ) Respiratory rate 14 /min 14 /min MEDGEN ( [facility] , ) Body mass index 22.3 kg/m2 22.3 kg/m2 MEDGEN (S t (BMI) [Ratio] [facility], ) Diastolic blood 86 mm[Hg] 86 mm[Hg] MEDGEN (S t pressure [facility] , ) Systolic blood 166 mm[Hg] 166 mm[Hg] MEDGEN ([facility] , ) Body weight 126 lb 126 lb MEDGEN ([facility] , ) Body height 63 in 63 in MEDGEN ([facility] , ) Heart rate 84 /min 84 /min MEDGEN ([facility] , ) Respiratory rate 14 /min 14 /min MEDGEN ( [facility] , ) Body mass index 22.1 kg/m2 22.1 kg/m2 MEDGEN (S t (BMI) [Ratio] [facility], ) Diastolic blood 80 mm[Hg] 80 mm[Hg] MEDGEN (S t pressure [facility] , ) Systolic blood 154 mm[Hg] 154 mm[Hg] MEDGEN ([facility] , ) Body weight 125 lb 125 lb MEDGEN ([facility] , ) Body height 63 in 63 in MEDGEN ([facility] , ) Heart rate 84 /min 84 /min MEDGEN ([facility] , ) Respiratory rate 14 /min 14 /min MEDGEN ( [facility] , ) Body mass index 22.1 kg/m2 22.1 kg/m2 MEDGEN (S t (BMI) [Ratio] [facility], ) Diastolic blood 80 mm[Hg] 80 mm[Hg] MEDGEN (S t pressure [facility] , ) Systolic blood 154 mm[Hg] 154 mm[Hg] MEDGEN ([facility] , ) Body weight 125 lb 125 lb MEDGEN ([facility]) Body height 63 in 63 in MEDGEN ([facility]) Heart rate 84 /min 84 /min MEDGEN ([facility]) Respiratory rate 14 /min 14 /min MEDGEN ( [facility]) Body mass index 22.3 kg/m2 22.3 kg/m2 MEDGEN (S t (BMI) [Ratio] [facility], ) Diastolic blood 94 mm[Hg] 94 mm[Hg] MEDGEN (S t pressure [facility] , ) Systolic blood 180 mm[Hg] 180 mm[Hg] MEDGEN ([facility] , ) Body weight 126 lb 126 lb MEDGEN ([facility]) Body height 63 in 63 in MEDGEN ([facility]) Heart rate 84 /min 84 /min MEDGEN ([facility] , ) Respiratory rate 14 /min 14 /min MEDGEN ( [facility] , ) Body mass index 22.3 kg/m2 22.3 kg/m2 MEDGEN (S t (BMI) [Ratio] [facility], ) Diastolic blood 94 mm[Hg] 94 mm[Hg] MEDGEN (S t pressure [facility] , ) Systolic blood 180 mm[Hg] 180 mm[Hg] MEDGEN ([facility] , ) Body weight 126 lb 126 lb MEDGEN ([facility]) Body height 63 in 63 in MEDGEN ([facility]) Heart rate 84 /min 84 /min MEDGEN ([facility]) Respiratory rate 14 /min 14 /min MEDGEN ( [facility]) Body mass index 22.3 kg/m2 22.3 kg/m2 MEDGEN (S t (BMI) [Ratio] [facility], ) Diastolic blood 94 mm[Hg] 94 mm[Hg] MEDGEN (S t pressure [facility] , ) Systolic blood 180 mm[Hg] 180 mm[Hg] MEDGEN (St [facility] , ) Body weight 126 lb 126 lb MEDGEN ([facility]) Body height 63 in 63 in MEDGEN ([facility]) Heart rate 84 /min 84 /min MEDGEN ([facility] , ) Respiratory rate 15 /min 15 /min MEDGEN ( [facility] , ) Inhaled oxygen 92 % 92 % MEDGEN ([facility], ) Body mass index 23.2 kg/m2 23.2 kg/m2 MEDGEN (S t (BMI) [Ratio] [facility], ) Diastolic blood 89 mm[Hg] 89 mm[Hg] MEDGEN (S t pressure [facility] , ) Systolic blood 188 mm[Hg] 188 mm[Hg] MEDGEN ([facility] , ) Body weight 131 lb 131 lb MEDGEN ([facility]) Body height 63 in 63 in MEDGEN ([facility]) Heart rate 84 /min 84 /min MEDGEN ([facility] , ) Respiratory rate 15 /min 15 /min MEDGEN ( [facility] , ) Inhaled oxygen 92 % 92 % MEDGEN ([facility], ) Body mass index 23.2 kg/m2 23.2 kg/m2 MEDGEN (S t (BMI) [Ratio] [facility], ) Diastolic blood 89 mm[Hg] 89 mm[Hg] MEDGEN (S t pressure [facility] , ) Systolic blood 188 mm[Hg] 188 mm[Hg] MEDGEN ([facility] , ) Body weight 131 lb 131 lb MEDGEN ([facility]) Body height 63 in 63 in MEDGEN ([facility]) Heart rate 84 /min 84 /min MEDGEN ([facility]) Respiratory rate 15 /min 15 /min MEDGEN ( [facility]) Inhaled oxygen 92 % 92 % MEDGEN ([facility], ) Body mass index 23.2 kg/m2 23.2 kg/m2 MEDGEN (S t (BMI) [Ratio] [facility], ) Diastolic blood 89 mm[Hg] 89 mm[Hg] MEDGEN (S t pressure [facility] , ) Systolic blood 188 mm[Hg] 188 mm[Hg] MEDGEN ([facility] , ) Body weight 131 lb 131 lb MEDGEN ([facility]) Body height 63 in 63 in MEDGEN ([facility]) Heart rate 84 /min 84 /min MEDGEN ([facility]) Respiratory rate 15 /min 15 /min MEDGEN ( [facility]) Inhaled oxygen 92 % 92 % MEDGEN ([facility]) Body mass index 23.2 kg/m2 23.2 kg/m2 MEDGEN (S t (BMI) [Ratio] [facility], ) Diastolic blood 89 mm[Hg] 89 mm[Hg] MEDGEN (S t [facility]) Systolic blood 188 mm[Hg] 188 mm[Hg] MEDGEN ([facility]) Body weight 131 lb 131 lb MEDGEN ([facility]) Body height 63 in 63 in MEDGEN ([facility]) Respiratory rate 16 /min 16 /min MEDGEN ( [facility] [place]) Body mass index 23.2 kg/m2 23.2 kg/m2 MEDGEN (S t (BMI) [Ratio] [facility] [place], ) Diastolic blood 90 mm[Hg] 90 mm[Hg] MEDGEN (S t [facility]) Systolic blood 180 mm[Hg] 180 mm[Hg] MEDGEN ([facility]) Body weight 131 lb 131 lb MEDGEN ([facility]) Body height 63 in 63 in MEDGEN ([facility]) Respiratory rate 16 /min 16 /min MEDGEN ( [facility]) Body mass index 23.2 kg/m2 23.2 kg/m2 MEDGEN (S t (BMI) [Ratio] [facility] [place]) Diastolic blood 90 mm[Hg] 90 mm[Hg] MEDGEN (S t [facility]) Systolic blood 180 mm[Hg] 180 mm[Hg] MEDGEN ([facility]) Body weight 131 lb 131 lb MEDGEN ([facility]) Body height 63 in 63 in MEDGEN ([facility]) Respiratory rate 16 /min 16 /min MEDGEN ( [facility]) Body mass index 23.2 kg/m2 23.2 kg/m2 MEDGEN (S t (BMI) [Ratio] [facility] [place], ) Diastolic blood 90 mm[Hg] 90 mm[Hg] MEDGEN (S t pressure [facility] [place]) Systolic blood 180 mm[Hg] 180 mm[Hg] MEDGEN ([facility]) Body weight 131 lb 131 lb MEDGEN ([facility]) Body height 63 in 63 in MEDGEN ([facility]) Respiratory rate 16 /min 16 /min MEDGEN ( [facility]) Body mass index 23.2 kg/m2 23.2 kg/m2 MEDGEN (S t (BMI) [Ratio] [facility], ) Diastolic blood 90 mm[Hg] 90 mm[Hg] MEDGEN (S t pressure [facility]) Systolic blood 180 mm[Hg] 180 mm[Hg] MEDGEN ([facility]) Body weight 131 lb 131 lb MEDGEN ([facility]) Body height 63 in 63 in MEDGEN ([facility]) Respiratory rate 16 /min 16 /min MEDGEN ( [facility]) Body mass index 23.2 kg/m2 23.2 kg/m2 MEDGEN (S t (BMI) [Ratio] [facility], ) Diastolic blood 90 mm[Hg] 90 mm[Hg] MEDGEN (S t [facility]) Systolic blood 180 mm[Hg] 180 mm[Hg] MEDGEN ([facility]) Body weight 131 lb 131 lb MEDGEN ([facility]) Body height 63 in 63 in MEDGEN ([facility]) Heart rate 72 /min 72 /min MEDGEN ([facility]) Respiratory rate 16 /min 16 /min MEDGEN ( [facility]) Body mass index 23.2 kg/m2 23.2 kg/m2 MEDGEN (S t (BMI) [Ratio] [facility], ) Diastolic blood 58 mm[Hg] 58 mm[Hg] MEDGEN (S t pressure [facility]) Systolic blood 110 mm[Hg] 110 mm[Hg] MEDGEN ([facility]) Body weight 131 lb 131 lb MEDGEN ([facility]) Body height 63 in 63 in MEDGEN ([facility]) Heart rate 72 /min 72 /min MEDGEN ([facility]) Respiratory rate 16 /min 16 /min MEDGEN ( [facility]) Body mass index 23.2 kg/m2 23.2 kg/m2 MEDGEN (S t (BMI) [Ratio] [facility] [place], ) Diastolic blood 58 mm[Hg] 58 mm[Hg] MEDGEN (S t pressure [facility]) Systolic blood 110 mm[Hg] 110 mm[Hg] MEDGEN ([facility]) Body weight 131 lb 131 lb MEDGEN ([facility]) Body height 63 in 63 in MEDGEN ([facility]) Heart rate 72 /min 72 /min MEDGEN ([facility]) Respiratory rate 16 /min 16 /min MEDGEN ( [facility]) Body mass index 23.2 kg/m2 23.2 kg/m2 MEDGEN (S t (BMI) [Ratio] [facility], ) Diastolic blood 58 mm[Hg] 58 mm[Hg] MEDGEN (S t pressure [facility] , ) Systolic blood 110 mm[Hg] 110 mm[Hg] MEDGEN ([facility]) Body weight 131 lb 131 lb MEDGEN ([facility]) Body height 63 in 63 in MEDGEN ([facility]) Heart rate 72 /min 72 /min MEDGEN ([facility]) Respiratory rate 16 /min 16 /min MEDGEN ( [facility]) Body mass index 23.2 kg/m2 23.2 kg/m2 MEDGEN (S t (BMI) [Ratio] [facility], ) Diastolic blood 58 mm[Hg] 58 mm[Hg] MEDGEN (S t pressure [facility] , ) Systolic blood 110 mm[Hg] 110 mm[Hg] MEDGEN ([facility] [place] , ) Body weight 131 lb 131 lb MEDGEN ([facility]) Body height 63 in 63 in MEDGEN ([facility]) Heart rate 72 /min 72 /min MEDGEN ([facility]) Respiratory rate 16 /min 16 /min MEDGEN ( [facility]) Body mass index 23.2 kg/m2 23.2 kg/m2 MEDGEN (S t (BMI) [Ratio] [facility] [place]) Diastolic blood 58 mm[Hg] 58 mm[Hg] MEDGEN (S t pressure [facility]) Systolic blood 110 mm[Hg] 110 mm[Hg] MEDGEN ([facility]) Body weight 131 lb 131 lb MEDGEN ([facility]) Body height 63 in 63 in MEDGEN ([facility]) Heart rate 72 /min 72 /min MEDGEN ([facility]) Respiratory rate 16 /min 16 /min MEDGEN ( [facility]) Body mass index 23.2 kg/m2 23.2 kg/m2 MEDGEN (S t (BMI) [Ratio] [facility], ) Diastolic blood 58 mm[Hg] 58 mm[Hg] MEDGEN (S t pressure [facility]) Systolic blood 110 mm[Hg] 110 mm[Hg] MEDGEN ([facility]) Body weight 131 lb 131 lb MEDGEN ([facility]) Body height 63 in 63 in MEDGEN ([facility]) Heart rate 58 /min 58 /min MEDGEN ([facility]) Inhaled oxygen 96 % 96 % MEDGEN ([facility], ) Diastolic blood 58 mm[Hg] 58 mm[Hg] MEDGEN (S t pressure [facility]) Systolic blood 120 mm[Hg] 120 mm[Hg] MEDGEN ([facility]) Body weight 126 lb 126 lb MEDGEN ([facility]) Heart rate 58 /min 58 /min MEDGEN ([facility]) Inhaled oxygen 96 % 96 % MEDGEN ([facility]) Diastolic blood 58 mm[Hg] 58 mm[Hg] MEDGEN (S t pressure [facility] , ) Systolic blood 120 mm[Hg] 120 mm[Hg] MEDGEN ([facility]) Body weight 126 lb 126 lb MEDGEN ([facility] , ) Heart rate 58 /min 58 /min MEDGEN ([facility] , ) Inhaled oxygen 96 % 96 % MEDGEN (St concentration [facility], ) Diastolic blood 58 mm[Hg] 58 mm[Hg] MEDGEN (S t pressure [facility] , ) Systolic blood 120 mm[Hg] 120 mm[Hg] MEDGEN (St pressure [facility] , ) Body weight 126 lb 126 lb MEDGEN ([facility] , ) Heart rate 58 /min 58 /min MEDGEN ([facility] , ) Inhaled oxygen 96 % 96 % MEDGEN ([facility], ) Diastolic blood 58 mm[Hg] 58 mm[Hg] MEDGEN (S t pressure [facility] , ) Systolic blood 120 mm[Hg] 120 mm[Hg] MEDGEN ([facility] , ) Body weight 126 lb 126 lb MEDGEN ([facility] , ) Heart rate 58 /min 58 /min MEDGEN ([facility] , ) Inhaled oxygen 96 % 96 % MEDGEN ([facility], ) Diastolic blood 58 mm[Hg] 58 mm[Hg] MEDGEN (S t pressure [facility] , ) Systolic blood 120 mm[Hg] 120 mm[Hg] MEDGEN ([facility] , ) Body weight 126 lb 126 lb MEDGEN ([facility] , ) Heart rate 58 /min 58 /min MEDGEN ([facility] , ) Inhaled oxygen 96 % 96 % MEDGEN ([facility], ) Diastolic blood 58 mm[Hg] 58 mm[Hg] MEDGEN (S t pressure [facility] , ) Systolic blood 120 mm[Hg] 120 mm[Hg] MEDGEN ([facility] , ) Body weight 126 lb 126 lb MEDGEN ([facility] , ) Heart rate 58 /min 58 /min MEDGEN ([facility] , ) Inhaled oxygen 96 % 96 % MEDGEN ([facility], ) Diastolic blood 58 mm[Hg] 58 mm[Hg] MEDGEN (S t pressure [facility] , ) Systolic blood 120 mm[Hg] 120 mm[Hg] MEDGEN (St [facility] , ) Body weight 126 lb 126 lb MEDGEN ([facility] , ) Heart rate 81 /min 81 /min MEDGEN ([facility] , ) Respiratory rate 12 /min 12 /min MEDGEN ( [facility] , ) Body temperature 98 F 98 F MEDGEN ( [facility] , ) Inhaled oxygen 100 % 100 % MEDGEN (St concentration [facility] [place], ) Diastolic blood 78 mm[Hg] 78 mm[Hg] MEDGEN (S t [facility] , ) Systolic blood 136 mm[Hg] 136 mm[Hg] MEDGEN (St [facility] , ) Heart rate 81 /min 81 /min MEDGEN ([facility] , ) Respiratory rate 12 /min 12 /min MEDGEN ( [facility] , ) Body temperature 98 F 98 F MEDGEN ( [facility] , ) Inhaled oxygen 100 % 100 % MEDGEN ([facility], ) Diastolic blood 78 mm[Hg] 78 mm[Hg] MEDGEN (S t [facility] , ) Systolic blood 136 mm[Hg] 136 mm[Hg] MEDGEN (St [facility] , ) Heart rate 81 /min 81 /min MEDGEN ([facility] , ) Respiratory rate 12 /min 12 /min MEDGEN ( [facility] , ) Body temperature 98 F 98 F MEDGEN ( [facility] , ) Inhaled oxygen 100 % 100 % MEDGEN (St concentration [facility] [place], ) Diastolic blood 78 mm[Hg] 78 mm[Hg] MEDGEN (S t [facility] , ) Systolic blood 136 mm[Hg] 136 mm[Hg] MEDGEN (St [facility] , ) Heart rate 81 /min 81 /min MEDGEN ([facility] , ) Respiratory rate 12 /min 12 /min MEDGEN ( [facility] , ) Body temperature 98 F 98 F MEDGEN ( [facility] , ) Inhaled oxygen 100 % 100 % MEDGEN (St concentration [facility] [place], ) Diastolic blood 78 mm[Hg] 78 mm[Hg] MEDGEN (S t [facility] , ) Systolic blood 136 mm[Hg] 136 mm[Hg] MEDGEN (St [facility] , ) Heart rate 81 /min 81 /min MEDGEN ([facility] , ) Respiratory rate 12 /min 12 /min MEDGEN ( [facility] , ) Body temperature 98 F 98 F MEDGEN ( [facility] , ) Inhaled oxygen 100 % 100 % MEDGEN (St concentration [facility] [place], ) Diastolic blood 78 mm[Hg] 78 mm[Hg] MEDGEN (S t [facility]) Systolic blood 136 mm[Hg] 136 mm[Hg] MEDGEN (St [facility] , ) Heart rate 81 /min 81 /min MEDGEN ([facility] , ) Respiratory rate 12 /min 12 /min MEDGEN ( [facility] , ) Body temperature 98 F 98 F MEDGEN ( [facility] , ) Inhaled oxygen 100 % 100 % MEDGEN ([facility], ) Diastolic blood 78 mm[Hg] 78 mm[Hg] MEDGEN (S t [facility]) Systolic blood 136 mm[Hg] 136 mm[Hg] MEDGEN (St [facility] , ) Heart rate 81 /min 81 /min MEDGEN ([facility] , ) Respiratory rate 12 /min 12 /min MEDGEN ( [facility] , ) Body temperature 98 F 98 F MEDGEN ( [facility] , ) Inhaled oxygen 100 % 100 % MEDGEN (St concentration [facility], ) Diastolic blood 78 mm[Hg] 78 mm[Hg] MEDGEN (S t [facility]) Systolic blood 136 mm[Hg] 136 mm[Hg] MEDGEN (St [facility] , ) Heart rate 81 /min 81 /min MEDGEN ([facility] , ) Respiratory rate 12 /min 12 /min MEDGEN ( [facility] , ) Body temperature 98 F 98 F MEDGEN ( [facility] , ) Inhaled oxygen 100 % 100 % MEDGEN (St concentration [facility], ) Diastolic blood 78 mm[Hg] 78 mm[Hg] MEDGEN (S t [facility] , ) Systolic blood 136 mm[Hg] 136 mm[Hg] MEDGEN ([facility] , ) Heart rate 81 /min 81 /min MEDGEN ([facility]) Respiratory rate 12 /min 12 /min MEDGEN ( [facility]) Body temperature 98 F 98 F MEDGEN ( [facility]) Inhaled oxygen 100 % 100 % MEDGEN ([facility], ) Diastolic blood 78 mm[Hg] 78 mm[Hg] MEDGEN (S t pressure [facility]) Systolic blood 136 mm[Hg] 136 mm[Hg] MEDGEN ([facility] , ) Heart rate 81 /min 81 /min MEDGEN ([facility]) Respiratory rate 12 /min 12 /min MEDGEN ( [facility]) Body temperature 98 F 98 F MEDGEN ( [facility]) Inhaled oxygen 100 % 100 % MEDGEN ([facility], ) Diastolic blood 78 mm[Hg] 78 mm[Hg] MEDGEN (S [facility]) Systolic blood 136 mm[Hg] 136 mm[Hg] MEDGEN ([facility] , ) Heart rate 84 /min 84 /min MEDGEN ([facility]) Respiratory rate 14 /min 14 /min MEDGEN ( [facility]) Body mass index 23.2 kg/m2 23.2 kg/m2 MEDGEN (S t (BMI) [Ratio] [facility], ) Diastolic blood 70 mm[Hg] 70 mm[Hg] MEDGEN (S [facility]) Systolic blood 140 mm[Hg] 140 mm[Hg] MEDGEN ([facility]) Body weight 131 lb 131 lb MEDGEN ([facility]) Body height 63 in 63 in MEDGEN ([facility]) Heart rate 84 /min 84 /min MEDGEN ([facility]) Respiratory rate 14 /min 14 /min MEDGEN ( [facility]) Body mass index 23.2 kg/m2 23.2 kg/m2 MEDGEN (S t (BMI) [Ratio] [facility], ) Diastolic blood 70 mm[Hg] 70 mm[Hg] MEDGEN (S t pressure [facility] , ) Systolic blood 140 mm[Hg] 140 mm[Hg] MEDGEN ([facility]) Body weight 131 lb 131 lb MEDGEN ([facility]) Body height 63 in 63 in MEDGEN ([facility]) Heart rate 84 /min 84 /min MEDGEN ([facility]) Respiratory rate 14 /min 14 /min MEDGEN ( [facility]) Body mass index 23.2 kg/m2 23.2 kg/m2 MEDGEN (S t (BMI) [Ratio] [facility], ) Diastolic blood 70 mm[Hg] 70 mm[Hg] MEDGEN (S t pressure [facility]) Systolic blood 140 mm[Hg] 140 mm[Hg] MEDGEN ([facility]) Body weight 131 lb 131 lb MEDGEN ([facility]) Body height 63 in 63 in MEDGEN ([facility]) Heart rate 84 /min 84 /min MEDGEN ([facility]) Respiratory rate 14 /min 14 /min MEDGEN ( [facility]) Body mass index 23.2 kg/m2 23.2 kg/m2 MEDGEN (S t (BMI) [Ratio] [facility] [place], ) Diastolic blood 70 mm[Hg] 70 mm[Hg] MEDGEN (S t pressure [facility]) Systolic blood 140 mm[Hg] 140 mm[Hg] MEDGEN ([facility]) Body weight 131 lb 131 lb MEDGEN ([facility]) Body height 63 in 63 in MEDGEN ([facility]) Heart rate 84 /min 84 /min MEDGEN ([facility]) Respiratory rate 14 /min 14 /min MEDGEN ( [facility]) Body mass index 23.2 kg/m2 23.2 kg/m2 MEDGEN (S t (BMI) [Ratio] [facility] [place], ) Diastolic blood 70 mm[Hg] 70 mm[Hg] MEDGEN (S t pressure [facility]) Systolic blood 140 mm[Hg] 140 mm[Hg] MEDGEN (St [facility]) Body weight 131 lb 131 lb MEDGEN ([facility]) Body height 63 in 63 in MEDGEN ([facility]) Heart rate 84 /min 84 /min MEDGEN ([facility]) Respiratory rate 14 /min 14 /min MEDGEN ( [facility]) Body mass index 23.2 kg/m2 23.2 kg/m2 MEDGEN (S t (BMI) [Ratio] [facility], ) Diastolic blood 70 mm[Hg] 70 mm[Hg] MEDGEN (S t [facility]) Systolic blood 140 mm[Hg] 140 mm[Hg] MEDGEN ([facility]) Body weight 131 lb 131 lb MEDGEN ([facility]) Body height 63 in 63 in MEDGEN ([facility]) Heart rate 84 /min 84 /min MEDGEN ([facility]) Respiratory rate 14 /min 14 /min MEDGEN ( [facility]) Body mass index 23.2 kg/m2 23.2 kg/m2 MEDGEN (S t (BMI) [Ratio] [facility], ) Diastolic blood 70 mm[Hg] 70 mm[Hg] MEDGEN (S t [facility]) Systolic blood 140 mm[Hg] 140 mm[Hg] MEDGEN ([facility]) Body weight 131 lb 131 lb MEDGEN ([facility]) Body height 63 in 63 in MEDGEN ([facility]) Heart rate 84 /min 84 /min MEDGEN ([facility]) Respiratory rate 14 /min 14 /min MEDGEN ( [facility]) Body mass index 23.2 kg/m2 23.2 kg/m2 MEDGEN (S t (BMI) [Ratio] [facility], ) Diastolic blood 70 mm[Hg] 70 mm[Hg] MEDGEN (S t pressure [facility]) Systolic blood 140 mm[Hg] 140 mm[Hg] MEDGEN ([facility]) Body weight 131 lb 131 lb MEDGEN ([facility]) Body height 63 in 63 in MEDGEN ([facility]) Heart rate 84 /min 84 /min MEDGEN ([facility] , ) Respiratory rate 14 /min 14 /min MEDGEN ( [facility] , ) Body mass index 23.2 kg/m2 23.2 kg/m2 MEDGEN (S t (BMI) [Ratio] [facility], ) Diastolic blood 70 mm[Hg] 70 mm[Hg] MEDGEN (S t pressure [facility] , ) Systolic blood 140 mm[Hg] 140 mm[Hg] MEDGEN (St [facility] , ) Body weight 131 lb 131 lb MEDGEN ([facility] , ) Body height 63 in 63 in MEDGEN ([facility] , ) Heart rate 84 /min 84 /min MEDGEN ([facility] , ) Respiratory rate 14 /min 14 /min MEDGEN ( [facility] , ) Body mass index 23.2 kg/m2 23.2 kg/m2 MEDGEN (S t (BMI) [Ratio] [facility], ) Diastolic blood 70 mm[Hg] 70 mm[Hg] MEDGEN (S t pressure [facility] , ) Systolic blood 140 mm[Hg] 140 mm[Hg] MEDGEN ([facility] , ) Body weight 131 lb 131 lb MEDGEN ([facility] , ) Body height 63 in 63 in MEDGEN ([facility] , ) Heart rate 84 /min 84 /min MEDGEN ([facility] , ) Respiratory rate 14 /min 14 /min MEDGEN ( [facility] , ) Body mass index 23.2 kg/m2 23.2 kg/m2 MEDGEN (S t (BMI) [Ratio] [facility], ) Diastolic blood 70 mm[Hg] 70 mm[Hg] MEDGEN (S t [facility] , ) Systolic blood 140 mm[Hg] 140 mm[Hg] MEDGEN ([facility] , ) Body weight 131 lb 131 lb MEDGEN ([facility] , ) Body height 63 in 63 in MEDGEN ([facility] , ) Heart rate 68 /min 68 /min MEDGEN ([facility] , ) Respiratory rate 15 /min 15 /min MEDGEN ( [facility]) Inhaled oxygen 96 % 96 % MEDGEN ([facility], ) Body mass index 23.7 kg/m2 23.7 kg/m2 MEDGEN (S t (BMI) [Ratio] [facility], ) Diastolic blood 83 mm[Hg] 83 mm[Hg] MEDGEN (S t pressure [facility] , ) Systolic blood 155 mm[Hg] 155 mm[Hg] MEDGEN ([facility]) Body weight 134 lb 134 lb MEDGEN ([facility]) Body height 63 in 63 in MEDGEN ([facility]) Heart rate 68 /min 68 /min MEDGEN ([facility]) Respiratory rate 15 /min 15 /min MEDGEN ( [facility]) Inhaled oxygen 96 % 96 % MEDGEN ([facility], ) Body mass index 23.7 kg/m2 23.7 kg/m2 MEDGEN (S t (BMI) [Ratio] [facility], ) Diastolic blood 83 mm[Hg] 83 mm[Hg] MEDGEN (S t pressure [facility]) Systolic blood 155 mm[Hg] 155 mm[Hg] MEDGEN ([facility]) Body weight 134 lb 134 lb MEDGEN ([facility]) Body height 63 in 63 in MEDGEN ([facility]) Heart rate 68 /min 68 /min MEDGEN ([facility]) Respiratory rate 15 /min 15 /min MEDGEN ( [facility]) Inhaled oxygen 96 % 96 % MEDGEN ([facility], ) Body mass index 23.7 kg/m2 23.7 kg/m2 MEDGEN (S t (BMI) [Ratio] [facility], ) Diastolic blood 83 mm[Hg] 83 mm[Hg] MEDGEN (S t pressure [facility] , ) Systolic blood 155 mm[Hg] 155 mm[Hg] MEDGEN ([facility]) Body weight 134 lb 134 lb MEDGEN ([facility]) Body height 63 in 63 in MEDGEN ([facility]) Heart rate 68 /min 68 /min MEDGEN ([facility] , ) Respiratory rate 15 /min 15 /min MEDGEN ( [facility] , ) Inhaled oxygen 96 % 96 % MEDGEN ([facility], ) Body mass index 23.7 kg/m2 23.7 kg/m2 MEDGEN (S t (BMI) [Ratio] [facility], ) Diastolic blood 83 mm[Hg] 83 mm[Hg] MEDGEN (S t pressure [facility] , ) Systolic blood 155 mm[Hg] 155 mm[Hg] MEDGEN ([facility] , ) Body weight 134 lb 134 lb MEDGEN ([facility]) Body height 63 in 63 in MEDGEN ([facility]) Heart rate 68 /min 68 /min MEDGEN ([facility] , ) Respiratory rate 15 /min 15 /min MEDGEN ( [facility] , ) Inhaled oxygen 96 % 96 % MEDGEN ([facility], ) Body mass index 23.7 kg/m2 23.7 kg/m2 MEDGEN (S t (BMI) [Ratio] [facility], ) Diastolic blood 83 mm[Hg] 83 mm[Hg] MEDGEN (S t pressure [facility] , ) Systolic blood 155 mm[Hg] 155 mm[Hg] MEDGEN ([facility] [facility] [place] , ) Body weight 134 lb 134 lb MEDGEN ([facility] , ) Body height 63 in 63 in MEDGEN ([facility] , ) Heart rate 68 /min 68 /min MEDGEN ([facility]) Respiratory rate 15 /min 15 /min MEDGEN ( [facility]) Inhaled oxygen 96 % 96 % MEDGEN ([facility], ) Body mass index 23.7 kg/m2 23.7 kg/m2 MEDGEN (S t (BMI) [Ratio] [facility], ) Diastolic blood 83 mm[Hg] 83 mm[Hg] MEDGEN (S t pressure [facility] , ) Systolic blood 155 mm[Hg] 155 mm[Hg] MEDGEN ([facility] [place] , ) Body weight 134 lb 134 lb MEDGEN ([facility]) Body height 63 in 63 in MEDGEN ([facility]) Heart rate 68 /min 68 /min MEDGEN ([facility]) Respiratory rate 15 /min 15 /min MEDGEN ( [facility]) Inhaled oxygen 96 % 96 % MEDGEN ([facility]) Body mass index 23.7 kg/m2 23.7 kg/m2 MEDGEN (S t (BMI) [Ratio] [facility], ) Diastolic blood 83 mm[Hg] 83 mm[Hg] MEDGEN (S t pressure [facility] [place]) Systolic blood 155 mm[Hg] 155 mm[Hg] MEDGEN ([facility]) Body weight 134 lb 134 lb MEDGEN ([facility]) Body height 63 in 63 in MEDGEN ([facility]) Heart rate 68 /min 68 /min MEDGEN ([facility]) Respiratory rate 15 /min 15 /min MEDGEN ( [facility]) Inhaled oxygen 96 % 96 % MEDGEN ([facility], ) Body mass index 23.7 kg/m2 23.7 kg/m2 MEDGEN (S t (BMI) [Ratio] [facility], ) Diastolic blood 83 mm[Hg] 83 mm[Hg] MEDGEN (S t pressure [facility]) Systolic blood 155 mm[Hg] 155 mm[Hg] MEDGEN ([facility]) Body weight 134 lb 134 lb MEDGEN ([facility]) Body height 63 in 63 in MEDGEN ([facility]) Heart rate 68 /min 68 /min MEDGEN ([facility]) Respiratory rate 15 /min 15 /min MEDGEN ( [facility]) Inhaled oxygen 96 % 96 % MEDGEN ([facility], ) Body mass index 23.7 kg/m2 23.7 kg/m2 MEDGEN (S t (BMI) [Ratio] [facility], ) Diastolic blood 83 mm[Hg] 83 mm[Hg] MEDGEN (S t pressure [facility]) Systolic blood 155 mm[Hg] 155 mm[Hg] MEDGEN ([facility]) Body weight 134 lb 134 lb MEDGEN ([facility]) Body height 63 in 63 in MEDGEN ([facility]) Heart rate 68 /min 68 /min MEDGEN ([facility]) Respiratory rate 15 /min 15 /min MEDGEN ( [facility]) Inhaled oxygen 96 % 96 % MEDGEN ([facility], ) Body mass index 23.7 kg/m2 23.7 kg/m2 MEDGEN (S t (BMI) [Ratio] [facility], ) Diastolic blood 83 mm[Hg] 83 mm[Hg] MEDGEN (S t [facility]) Systolic blood 155 mm[Hg] 155 mm[Hg] MEDGEN ([facility]) Body weight 134 lb 134 lb MEDGEN ([facility]) Body height 63 in 63 in MEDGEN ([facility]) Heart rate 68 /min 68 /min MEDGEN ([facility]) Respiratory rate 15 /min 15 /min MEDGEN ( [facility]) Inhaled oxygen 96 % 96 % MEDGEN ([facility], ) Body mass index 23.7 kg/m2 23.7 kg/m2 MEDGEN (S t (BMI) [Ratio] [facility], ) Diastolic blood 83 mm[Hg] 83 mm[Hg] MEDGEN (S t [facility]) Systolic blood 155 mm[Hg] 155 mm[Hg] MEDGEN ([facility]) Body weight 134 lb 134 lb MEDGEN ([facility]) Body height 63 in 63 in MEDGEN ([facility]) Heart rate 65 /min 65 /min MEDGEN ([facility]) Inhaled oxygen 96 % 96 % MEDGEN ([facility], ) Body mass index 23.7 kg/m2 23.7 kg/m2 MEDGEN (S t (BMI) [Ratio] [facility], ) Diastolic blood 82 mm[Hg] 82 mm[Hg] MEDGEN (S t [facility]) Systolic blood 150 mm[Hg] 150 mm[Hg] MEDGEN ([facility]) Body weight 134 lb 134 lb MEDGEN ([facility]) Body height 63 in 63 in MEDGEN ([facility]) Heart rate 65 /min 65 /min MEDGEN ([facility]) Inhaled oxygen 96 % 96 % MEDGEN ([facility]) Body mass index 23.7 kg/m2 23.7 kg/m2 MEDGEN (S t (BMI) [Ratio] [facility], ) Diastolic blood 82 mm[Hg] 82 mm[Hg] MEDGEN (S t [facility]) Systolic blood 150 mm[Hg] 150 mm[Hg] MEDGEN ([facility]) Body weight 134 lb 134 lb MEDGEN ([facility]) Body height 63 in 63 in MEDGEN ([facility]) Heart rate 65 /min 65 /min MEDGEN ([facility]) Inhaled oxygen 96 % 96 % MEDGEN ([facility], ) Body mass index 23.7 kg/m2 23.7 kg/m2 MEDGEN (S t (BMI) [Ratio] [facility], ) Diastolic blood 82 mm[Hg] 82 mm[Hg] MEDGEN (S [facility]) Systolic blood 150 mm[Hg] 150 mm[Hg] MEDGEN ([facility]) Body weight 134 lb 134 lb MEDGEN ([facility]) Body height 63 in 63 in MEDGEN ([facility]) Heart rate 65 /min 65 /min MEDGEN ([facility]) Inhaled oxygen 96 % 96 % MEDGEN ([facility], ) Body mass index 23.7 kg/m2 23.7 kg/m2 MEDGEN (S t (BMI) [Ratio] [facility], ) Diastolic blood 82 mm[Hg] 82 mm[Hg] MEDGEN (S [facility]) Systolic blood 150 mm[Hg] 150 mm[Hg] MEDGEN ([facility]) Body weight 134 lb 134 lb MEDGEN ([facility]) Body height 63 in 63 in MEDGEN ([facility]) Heart rate 65 /min 65 /min MEDGEN ([facility]) Inhaled oxygen 96 % 96 % MEDGEN ([facility], ) Body mass index 23.7 kg/m2 23.7 kg/m2 MEDGEN (S t (BMI) [Ratio] [facility], ) Diastolic blood 82 mm[Hg] 82 mm[Hg] MEDGEN (S t pressure [facility] , ) Systolic blood 150 mm[Hg] 150 mm[Hg] MEDGEN ([facility] [place] , ) Body weight 134 lb 134 lb MEDGEN ([facility]) Body height 63 in 63 in MEDGEN ([facility]) Heart rate 65 /min 65 /min MEDGEN ([facility]) Inhaled oxygen 96 % 96 % MEDGEN ([facility], ) Body mass index 23.7 kg/m2 23.7 kg/m2 MEDGEN (S t (BMI) [Ratio] [facility], ) Diastolic blood 82 mm[Hg] 82 mm[Hg] MEDGEN (S t pressure [facility]) Systolic blood 150 mm[Hg] 150 mm[Hg] MEDGEN ([facility]) Body weight 134 lb 134 lb MEDGEN ([facility]) Body height 63 in 63 in MEDGEN ([facility]) Heart rate 65 /min 65 /min MEDGEN ([facility]) Inhaled oxygen 96 % 96 % MEDGEN ([facility], ) Body mass index 23.7 kg/m2 23.7 kg/m2 MEDGEN (S t (BMI) [Ratio] [facility], ) Diastolic blood 82 mm[Hg] 82 mm[Hg] MEDGEN (S t pressure [facility] , ) Systolic blood 150 mm[Hg] 150 mm[Hg] MEDGEN ([facility] [place] , ) Body weight 134 lb 134 lb MEDGEN ([facility]) Body height 63 in 63 in MEDGEN ([facility]) Heart rate 65 /min 65 /min MEDGEN ([facility]) Inhaled oxygen 96 % 96 % MEDGEN ([facility], ) Body mass index 23.7 kg/m2 23.7 kg/m2 MEDGEN (S t (BMI) [Ratio] [facility], ) Diastolic blood 82 mm[Hg] 82 mm[Hg] MEDGEN (S t pressure [facility] , ) Systolic blood 150 mm[Hg] 150 mm[Hg] MEDGEN ([facility]) Body weight 134 lb 134 lb MEDGEN ([facility]) Body height 63 in 63 in MEDGEN ([facility]) Heart rate 65 /min 65 /min MEDGEN ([facility]) Inhaled oxygen 96 % 96 % MEDGEN ([facility], ) Body mass index 23.7 kg/m2 23.7 kg/m2 MEDGEN (S t (BMI) [Ratio] [facility], ) Diastolic blood 82 mm[Hg] 82 mm[Hg] MEDGEN (S t pressure [facility]) Systolic blood 150 mm[Hg] 150 mm[Hg] MEDGEN ([facility]) Body weight 134 lb 134 lb MEDGEN ([facility]) Body height 63 in 63 in MEDGEN ([facility]) Heart rate 65 /min 65 /min MEDGEN ([facility]) Inhaled oxygen 96 % 96 % MEDGEN ([facility]) Body mass index 23.7 kg/m2 23.7 kg/m2 MEDGEN (S t (BMI) [Ratio] [facility], ) Diastolic blood 82 mm[Hg] 82 mm[Hg] MEDGEN (S t pressure [facility] , ) Systolic blood 150 mm[Hg] 150 mm[Hg] MEDGEN ([facility] [place] , ) Body weight 134 lb 134 lb MEDGEN ([facility]) Body height 63 in 63 in MEDGEN ([facility]) Heart rate 65 /min 65 /min MEDGEN ([facility]) Inhaled oxygen 96 % 96 % MEDGEN ([facility], ) Body mass index 23.7 kg/m2 23.7 kg/m2 MEDGEN (S t (BMI) [Ratio] [facility], ) Diastolic blood 82 mm[Hg] 82 mm[Hg] MEDGEN (S t pressure [facility] , ) Systolic blood 150 mm[Hg] 150 mm[Hg] MEDGEN ([facility] [place] , ) Body weight 134 lb 134 lb MEDGEN ([facility]) Body height 63 in 63 in MEDGEN ([facility]) Heart rate 87 /min 87 /min MEDGEN ([facility] , ) Respiratory rate 14 /min 14 /min MEDGEN ( [facility] , ) Body temperature 98.7 F 98.7 F MEDGEN ( [facility]) Inhaled oxygen 96 % 96 % MEDGEN ([facility], ) Diastolic blood 99 mm[Hg] 99 mm[Hg] MEDGEN (S t pressure [facility] , ) Systolic blood 211 mm[Hg] 211 mm[Hg] MEDGEN ([facility] [place] , ) Body weight 139 lb 139 lb MEDGEN ([facility]) Heart rate 87 /min 87 /min MEDGEN ([facility] , ) Respiratory rate 14 /min 14 /min MEDGEN ( [facility] , ) Body temperature 98.7 F 98.7 F MEDGEN ( [facility]) Inhaled oxygen 96 % 96 % MEDGEN ([facility], ) Diastolic blood 99 mm[Hg] 99 mm[Hg] MEDGEN (S t [facility] , ) Systolic blood 211 mm[Hg] 211 mm[Hg] MEDGEN ([facility] [place] , ) Body weight 139 lb 139 lb MEDGEN ([facility]) Heart rate 87 /min 87 /min MEDGEN ([facility] , ) Respiratory rate 14 /min 14 /min MEDGEN ( [facility] , ) Body temperature 98.7 F 98.7 F MEDGEN ( [facility] , ) Inhaled oxygen 96 % 96 % MEDGEN ([facility], ) Diastolic blood 99 mm[Hg] 99 mm[Hg] MEDGEN (S t pressure [facility] , ) Systolic blood 211 mm[Hg] 211 mm[Hg] MEDGEN ([facility] [place] , ) Body weight 139 lb 139 lb MEDGEN ([facility] , ) Heart rate 87 /min 87 /min MEDGEN ([facility] , ) Respiratory rate 14 /min 14 /min MEDGEN ( [facility] , ) Body temperature 98.7 F 98.7 F MEDGEN ( [facility] , ) Inhaled oxygen 96 % 96 % MEDGEN ([facility], ) Diastolic blood 99 mm[Hg] 99 mm[Hg] MEDGEN (S t pressure [facility] , ) Systolic blood 211 mm[Hg] 211 mm[Hg] MEDGEN ([facility] , ) Body weight 139 lb 139 lb MEDGEN ([facility] , ) Heart rate 87 /min 87 /min MEDGEN ([facility] , ) Respiratory rate 14 /min 14 /min MEDGEN ( [facility] , ) Body temperature 98.7 F 98.7 F MEDGEN ( [facility] , ) Inhaled oxygen 96 % 96 % MEDGEN ([facility], ) Diastolic blood 99 mm[Hg] 99 mm[Hg] MEDGEN (S t pressure [facility] , ) Systolic blood 211 mm[Hg] 211 mm[Hg] MEDGEN ([facility] , ) Body weight 139 lb 139 lb MEDGEN ([facility] , ) Heart rate 87 /min 87 /min MEDGEN ([facility] , ) Respiratory rate 14 /min 14 /min MEDGEN ( [facility] , ) Body temperature 98.7 F 98.7 F MEDGEN ( [facility] , ) Inhaled oxygen 96 % 96 % MEDGEN ([facility], ) Diastolic blood 99 mm[Hg] 99 mm[Hg] MEDGEN (S t pressure [facility] , ) Systolic blood 211 mm[Hg] 211 mm[Hg] MEDGEN ([facility] , ) Body weight 139 lb 139 lb MEDGEN ([facility] , ) Heart rate 87 /min 87 /min MEDGEN ([facility] , ) Respiratory rate 14 /min 14 /min MEDGEN ( [facility] , ) Body temperature 98.7 F 98.7 F MEDGEN ( [facility] , ) Inhaled oxygen 96 % 96 % MEDGEN ([facility], ) Diastolic blood 99 mm[Hg] 99 mm[Hg] MEDGEN (S t pressure [facility] , ) Systolic blood 211 mm[Hg] 211 mm[Hg] MEDGEN ([facility] , ) Body weight 139 lb 139 lb MEDGEN ([facility] , ) Heart rate 87 /min 87 /min MEDGEN ([facility] , ) Respiratory rate 14 /min 14 /min MEDGEN ( [facility] , ) Body temperature 98.7 F 98.7 F MEDGEN ( [facility] , ) Inhaled oxygen 96 % 96 % MEDGEN ([facility], ) Diastolic blood 99 mm[Hg] 99 mm[Hg] MEDGEN (S t pressure [facility] , ) Systolic blood 211 mm[Hg] 211 mm[Hg] MEDGEN ([facility] , ) Body weight 139 lb 139 lb MEDGEN ([facility] , ) Heart rate 87 /min 87 /min MEDGEN ([facility] , ) Respiratory rate 14 /min 14 /min MEDGEN ( [facility] , ) Body temperature 98.7 F 98.7 F MEDGEN ( [facility] , ) Inhaled oxygen 96 % 96 % MEDGEN ([facility], ) Diastolic blood 99 mm[Hg] 99 mm[Hg] MEDGEN (S t pressure [facility] , ) Systolic blood 211 mm[Hg] 211 mm[Hg] MEDGEN ([facility] , ) Body weight 139 lb 139 lb MEDGEN ([facility] , ) Heart rate 87 /min 87 /min MEDGEN ([facility] , ) Respiratory rate 14 /min 14 /min MEDGEN ( [facility] , ) Body temperature 98.7 F 98.7 F MEDGEN ( [facility] , ) Inhaled oxygen 96 % 96 % MEDGEN ([facility], ) Diastolic blood 99 mm[Hg] 99 mm[Hg] MEDGEN (S t pressure [facility] , ) Systolic blood 211 mm[Hg] 211 mm[Hg] MEDGEN ([facility] , ) Body weight 139 lb 139 lb MEDGEN ([facility]) Heart rate 87 /min 87 /min MEDGEN ([facility]) Respiratory rate 14 /min 14 /min MEDGEN ( [facility]) Body temperature 98.7 F 98.7 F MEDGEN ( [facility]) Inhaled oxygen 96 % 96 % MEDGEN ([facility], ) Diastolic blood 99 mm[Hg] 99 mm[Hg] MEDGEN (S t [facility] , ) Systolic blood 211 mm[Hg] 211 mm[Hg] MEDGEN ([facility] [place] , ) Body weight 139 lb 139 lb MEDGEN ([facility]) Heart rate 72 /min 72 /min MEDGEN ([facility]) Respiratory rate 14 /min 14 /min MEDGEN ( [facility]) Body mass index 23.4 kg/m2 23.4 kg/m2 MEDGEN (S t (BMI) [Ratio] [facility], ) Diastolic blood 80 mm[Hg] 80 mm[Hg] MEDGEN (S t pressure [facility]) Systolic blood 130 mm[Hg] 130 mm[Hg] MEDGEN ([facility]) Body weight 132 lb 132 lb MEDGEN ([facility]) Body height 63 in 63 in MEDGEN ([facility]) Heart rate 72 /min 72 /min MEDGEN ([facility]) Respiratory rate 14 /min 14 /min MEDGEN ( [facility]) Body mass index 23.4 kg/m2 23.4 kg/m2 MEDGEN (S t (BMI) [Ratio] [facility], ) Diastolic blood 80 mm[Hg] 80 mm[Hg] MEDGEN (S t pressure [facility]) Systolic blood 130 mm[Hg] 130 mm[Hg] MEDGEN ([facility] [place] , ) Body weight 132 lb 132 lb MEDGEN ([facility]) Body height 63 in 63 in MEDGEN ([facility]) Heart rate 72 /min 72 /min MEDGEN ([facility]) Respiratory rate 14 /min 14 /min MEDGEN ( [facility] , ) Body mass index 23.4 kg/m2 23.4 kg/m2 MEDGEN (S t (BMI) [Ratio] [facility], ) Diastolic blood 80 mm[Hg] 80 mm[Hg] MEDGEN (S t pressure [facility] , ) Systolic blood 130 mm[Hg] 130 mm[Hg] MEDGEN ([facility] , ) Body weight 132 lb 132 lb MEDGEN ([facility] , ) Body height 63 in 63 in MEDGEN ([facility]) Heart rate 72 /min 72 /min MEDGEN ([facility] , ) Respiratory rate 14 /min 14 /min MEDGEN ( [facility] , ) Body mass index 23.4 kg/m2 23.4 kg/m2 MEDGEN (S t (BMI) [Ratio] [facility], ) Diastolic blood 80 mm[Hg] 80 mm[Hg] MEDGEN (S t pressure [facility] , ) Systolic blood 130 mm[Hg] 130 mm[Hg] MEDGEN ([facility] , ) Body weight 132 lb 132 lb MEDGEN ([facility]) Body height 63 in 63 in MEDGEN ([facility] , ) Heart rate 72 /min 72 /min MEDGEN ([facility] , ) Respiratory rate 14 /min 14 /min MEDGEN ( [facility] , ) Body mass index 23.4 kg/m2 23.4 kg/m2 MEDGEN (S t (BMI) [Ratio] [facility], ) Diastolic blood 80 mm[Hg] 80 mm[Hg] MEDGEN (S t pressure [facility] , ) Systolic blood 130 mm[Hg] 130 mm[Hg] MEDGEN ([facility] , ) Body weight 132 lb 132 lb MEDGEN ([facility]) Body height 63 in 63 in MEDGEN ([facility]) Heart rate 72 /min 72 /min MEDGEN ([facility] , ) Respiratory rate 14 /min 14 /min MEDGEN ( [facility] , ) Body mass index 23.4 kg/m2 23.4 kg/m2 MEDGEN (S t (BMI) [Ratio] [facility], ) Diastolic blood 80 mm[Hg] 80 mm[Hg] MEDGEN (S t pressure [facility] , ) Systolic blood 130 mm[Hg] 130 mm[Hg] MEDGEN ([facility] , ) Body weight 132 lb 132 lb MEDGEN ([facility] , ) Body height 63 in 63 in MEDGEN ([facility] , ) Heart rate 72 /min 72 /min MEDGEN ([facility] , ) Respiratory rate 14 /min 14 /min MEDGEN ( [facility] , ) Body mass index 23.4 kg/m2 23.4 kg/m2 MEDGEN (S t (BMI) [Ratio] [facility], ) Diastolic blood 80 mm[Hg] 80 mm[Hg] MEDGEN (S t pressure [facility] , ) Systolic blood 130 mm[Hg] 130 mm[Hg] MEDGEN ([facility] , ) Body weight 132 lb 132 lb MEDGEN ([facility] , ) Body height 63 in 63 in MEDGEN ([facility] , ) Heart rate 72 /min 72 /min MEDGEN ([facility] , ) Respiratory rate 14 /min 14 /min MEDGEN ( [facility] , ) Body mass index 23.4 kg/m2 23.4 kg/m2 MEDGEN (S t (BMI) [Ratio] [facility], ) Diastolic blood 80 mm[Hg] 80 mm[Hg] MEDGEN (S t pressure [facility] , ) Systolic blood 130 mm[Hg] 130 mm[Hg] MEDGEN (St pressure [facility] , ) Body weight 132 lb 132 lb MEDGEN ([facility] , ) Body height 63 in 63 in MEDGEN ([facility]) Body weight 132 lb 132 lb MEDGEN ([facility]) Body height 63 in 63 in MEDGEN ([facility] , ) Heart rate 72 /min 72 /min MEDGEN ([facility] , ) Respiratory rate 14 /min 14 /min MEDGEN ( [facility] , ) Body mass index 23.4 kg/m2 23.4 kg/m2 MEDGEN (S t (BMI) [Ratio] [facility], ) Diastolic blood 80 mm[Hg] 80 mm[Hg] MEDGEN (S t pressure [facility]) Systolic blood 130 mm[Hg] 130 mm[Hg] MEDGEN ([facility]) Heart rate 72 /min 72 /min MEDGEN ([facility]) Respiratory rate 14 /min 14 /min MEDGEN ( [facility]) Body mass index 23.4 kg/m2 23.4 kg/m2 MEDGEN (S t (BMI) [Ratio] [facility], ) Diastolic blood 80 mm[Hg] 80 mm[Hg] MEDGEN (S t [facility]) Systolic blood 130 mm[Hg] 130 mm[Hg] MEDGEN ([facility]) Body weight 132 lb 132 lb MEDGEN ([facility]) Body height 63 in 63 in MEDGEN ([facility]) Heart rate 72 /min 72 /min MEDGEN ([facility]) Respiratory rate 14 /min 14 /min MEDGEN ( [facility]) Body mass index 23.4 kg/m2 23.4 kg/m2 MEDGEN (S t (BMI) [Ratio] [facility], ) Diastolic blood 80 mm[Hg] 80 mm[Hg] MEDGEN ([facility]) Systolic blood 130 mm[Hg] 130 mm[Hg] MEDGEN ([facility]) Body weight 132 lb 132 lb MEDGEN ([facility] [place]) Body height 63 in 63 in MEDGEN ([facility]) Heart rate 69 /min 69 /min MEDGEN ([facility] [place]) Inhaled oxygen 98 % 98 % MEDGEN ([facility], ) Body mass index 23 kg/m2 23 kg/m2 MEDGEN (S t (BMI) [Ratio] [facility] [place], ) Diastolic blood 110 mm[Hg] 110 mm[Hg] MEDGEN (S t pressure [facility] [place]) Systolic blood 240 mm[Hg] 240 mm[Hg] MEDGEN ([facility] [place]) Body weight 130 lb 130 lb MEDGEN ([facility] , ) Body height 63 in 63 in MEDGEN ([facility]) Heart rate 69 /min 69 /min MEDGEN ([facility] , ) Inhaled oxygen 98 % 98 % MEDGEN ([facility], ) Body mass index 23 kg/m2 23 kg/m2 MEDGEN (S t (BMI) [Ratio] [facility] [place], ) Diastolic blood 110 mm[Hg] 110 mm[Hg] MEDGEN (S t pressure [facility] , ) Systolic blood 240 mm[Hg] 240 mm[Hg] MEDGEN ([facility] [place] , ) Body weight 130 lb 130 lb MEDGEN ([facility] , ) Body height 63 in 63 in MEDGEN ([facility] , ) Heart rate 69 /min 69 /min MEDGEN ([facility] , ) Inhaled oxygen 98 % 98 % MEDGEN ([facility], ) Body mass index 23 kg/m2 23 kg/m2 MEDGEN (S t (BMI) [Ratio] [facility] [place], ) Diastolic blood 110 mm[Hg] 110 mm[Hg] MEDGEN (S t pressure [facility] , ) Systolic blood 240 mm[Hg] 240 mm[Hg] MEDGEN ([facility] , ) Body weight 130 lb 130 lb MEDGEN ([facility] , ) Body height 63 in 63 in MEDGEN ([facility] , ) Body mass index 23 kg/m2 23 kg/m2 MEDGEN (S t (BMI) [Ratio] [facility] [place], ) Diastolic blood 110 mm[Hg] 110 mm[Hg] MEDGEN (S t pressure [facility] , ) Systolic blood 240 mm[Hg] 240 mm[Hg] MEDGEN ([facility] , ) Body weight 130 lb 130 lb MEDGEN ([facility]) Body height 63 in 63 in MEDGEN ([facility] , ) Heart rate 69 /min 69 /min MEDGEN ([facility] , ) Inhaled oxygen 98 % 98 % MEDGEN ([facility], ) Heart rate 69 /min 69 /min [facility]GEN ([facility] [place]) Inhaled oxygen 98 % 98 % MEDGEN ([facility], ) Body mass index 23 kg/m2 23 kg/m2 MEDGEN (S t (BMI) [Ratio] [facility], ) Diastolic blood 110 mm[Hg] 110 mm[Hg] MEDGEN (S t pressure [facility] [place]) Systolic blood 240 mm[Hg] 240 mm[Hg] MEDGEN ([facility] , ) Body weight 130 lb 130 lb MEDGEN ([facility]) Body height 63 in 63 in MEDGEN ([facility]) Heart rate 69 /min 69 /min MEDGEN ([facility]) Inhaled oxygen 98 % 98 % MEDGEN ([facility], ) Body mass index 23 kg/m2 23 kg/m2 MEDGEN (S t (BMI) [Ratio] [facility], ) Diastolic blood 110 mm[Hg] 110 mm[Hg] MEDGEN (S t pressure [facility] [place]) Systolic blood 240 mm[Hg] 240 mm[Hg] MEDGEN ([facility] [place]) Body weight 130 lb 130 lb MEDGEN ([facility]) Body height 63 in 63 in MEDGEN ([facility]) Heart rate 69 /min 69 /min MEDGEN ([facility] [place]) Inhaled oxygen 98 % 98 % MEDGEN ([facility], ) Body mass index 23 kg/m2 23 kg/m2 MEDGEN (S t (BMI) [Ratio] [facility] [place], ) Diastolic blood 110 mm[Hg] 110 mm[Hg] MEDGEN (S t pressure [facility] [place]) Systolic blood 240 mm[Hg] 240 mm[Hg] MEDGEN ([facility] [place]) Body weight 130 lb 130 lb MEDGEN ([facility]) Body height 63 in 63 in MEDGEN ([facility] [place]) Heart rate 69 /min 69 /min MEDGEN ([facility] [place]) Inhaled oxygen 98 % 98 % MEDGEN ([facility], ) Body mass index 23 kg/m2 23 kg/m2 MEDGEN (S t (BMI) [Ratio] [facility] [place], ) Diastolic blood 110 mm[Hg] 110 mm[Hg] MEDGEN (S t pressure [facility] [place]) Systolic blood 240 mm[Hg] 240 mm[Hg] MEDGEN ([facility] [place]) Body weight 130 lb 130 lb MEDGEN ([facility]) Body height 63 in 63 in MEDGEN ([facility] [place]) Heart rate 69 /min 69 /min MEDGEN ([facility] [place]) Inhaled oxygen 98 % 98 % MEDGEN ([facility], ) Body mass index 23 kg/m2 23 kg/m2 MEDGEN (S t (BMI) [Ratio] [facility] [place], ) Diastolic blood 110 mm[Hg] 110 mm[Hg] MEDGEN (S t pressure [facility] , ) Systolic blood 240 mm[Hg] 240 mm[Hg] MEDGEN ([facility] [place]) Body weight 130 lb 130 lb MEDGEN ([facility] [place]) Body height 63 in 63 in MEDGEN ([facility]) Heart rate 69 /min 69 /min MEDGEN ([facility] [place]) Inhaled oxygen 98 % 98 % MEDGEN ([facility], ) Body mass index 23 kg/m2 23 kg/m2 MEDGEN (S t (BMI) [Ratio] [facility] [place], ) Diastolic blood 110 mm[Hg] 110 mm[Hg] MEDGEN (S t pressure [facility] [place]) Systolic blood 240 mm[Hg] 240 mm[Hg] MEDGEN ([facility] [place]) Body weight 130 lb 130 lb MEDGEN ([facility]) Body height 63 in 63 in MEDGEN ([facility] [place]) Heart rate 69 /min 69 /min MEDGEN ([facility] [place]) Inhaled oxygen 98 % 98 % MEDGEN ([facility], ) Body mass index 23 kg/m2 23 kg/m2 MEDGEN (S t (BMI) [Ratio] [facility], ) Diastolic blood 110 mm[Hg] 110 mm[Hg] MEDGEN (S t pressure [facility] [place]) Systolic blood 240 mm[Hg] 240 mm[Hg] MEDGEN ([facility] [place] , ) Body weight 130 lb 130 lb MEDGEN ([facility] [place]) Body height 63 in 63 in MEDGEN ([facility] [place]) Heart rate 68 /min 68 /min MEDGEN ([facility] [place]) Body temperature 98.1 F 98.1 F MEDGEN ( [facility] [place]) Inhaled oxygen 99 % 99 % MEDGEN ([facility]) Body mass index 22.7 kg/m2 22.7 kg/m2 MEDGEN (S t (BMI) [Ratio] [facility], ) Diastolic blood 90 mm[Hg] 90 mm[Hg] MEDGEN ([facility] [place]) Systolic blood 192 mm[Hg] 192 mm[Hg] MEDGEN ([facility]) Body weight 132 lb 132 lb MEDGEN ([facility]) Body height 64 in 64 in MEDGEN ([facility]) Heart rate 68 /min 68 /min MEDGEN ([facility]) Body temperature 98.1 F 98.1 F MEDGEN ( [facility]) Inhaled oxygen 99 % 99 % MEDGEN ([facility]) Body mass index 22.7 kg/m2 22.7 kg/m2 MEDGEN (S t (BMI) [Ratio] [facility] [place]) Diastolic blood 90 mm[Hg] 90 mm[Hg] MEDGEN (S t pressure [facility] [place]) Systolic blood 192 mm[Hg] 192 mm[Hg] MEDGEN ([facility]) Body weight 132 lb 132 lb MEDGEN ([facility]) Body height 64 in 64 in MEDGEN ([facility]) Heart rate 68 /min 68 /min MEDGEN ([facility] [place]) Body temperature 98.1 F 98.1 F MEDGEN ( [facility]) Inhaled oxygen 99 % 99 % MEDGEN ([facility]) Body mass index 22.7 kg/m2 22.7 kg/m2 MEDGEN (S t (BMI) [Ratio] [facility] [place]) Diastolic blood 90 mm[Hg] 90 mm[Hg] MEDGEN (S t pressure [facility] [place]) Systolic blood 192 mm[Hg] 192 mm[Hg] MEDGEN ([facility]) Body weight 132 lb 132 lb MEDGEN ([facility]) Body height 64 in 64 in MEDGEN ([facility]) Heart rate 68 /min 68 /min MEDGEN ([facility]) Body temperature 98.1 F 98.1 F MEDGEN ( [facility]) Inhaled oxygen 99 % 99 % MEDGEN ([facility], ) Body mass index 22.7 kg/m2 22.7 kg/m2 MEDGEN (S t (BMI) [Ratio] [facility] [place], ) Diastolic blood 90 mm[Hg] 90 mm[Hg] MEDGEN (S t pressure [facility] [place]) Systolic blood 192 mm[Hg] 192 mm[Hg] MEDGEN ([facility]) Body weight 132 lb 132 lb MEDGEN ([facility]) Body height 64 in 64 in MEDGEN ([facility]) Heart rate 68 /min 68 /min MEDGEN ([facility] [place]) Body temperature 98.1 F 98.1 F MEDGEN ( [facility] [place]) Inhaled oxygen 99 % 99 % MEDGEN ([facility], ) Body mass index 22.7 kg/m2 22.7 kg/m2 MEDGEN (S t (BMI) [Ratio] [facility] [place], ) Diastolic blood 90 mm[Hg] 90 mm[Hg] MEDGEN (S t pressure [facility] [place]) Systolic blood 192 mm[Hg] 192 mm[Hg] MEDGEN ([facility] [place]) Body weight 132 lb 132 lb MEDGEN ([facility] [place]) Body height 64 in 64 in MEDGEN ([facility] [place]) Heart rate 68 /min 68 /min MEDGEN ([facility] [place]) Body temperature 98.1 F 98.1 F MEDGEN ( [facility] [place]) Inhaled oxygen 99 % 99 % MEDGEN ([facility], ) Body mass index 22.7 kg/m2 22.7 kg/m2 MEDGEN (S t (BMI) [Ratio] [facility] [place], ) Diastolic blood 90 mm[Hg] 90 mm[Hg] MEDGEN (S t pressure [facility] , ) Systolic blood 192 mm[Hg] 192 mm[Hg] MEDGEN ([facility] [place] , ) Body weight 132 lb 132 lb MEDGEN ([facility]) Body height 64 in 64 in MEDGEN ([facility] [place]) Body temperature 98.1 F 98.1 F MEDGEN ( [facility] [place]) Inhaled oxygen 99 % 99 % MEDGEN ([facility], ) Body mass index 22.7 kg/m2 22.7 kg/m2 MEDGEN (S t (BMI) [Ratio] [facility] [place], ) Diastolic blood 90 mm[Hg] 90 mm[Hg] MEDGEN (S t pressure [facility] , ) Systolic blood 192 mm[Hg] 192 mm[Hg] MEDGEN ([facility] [place]) Body weight 132 lb 132 lb MEDGEN ([facility] [place]) Body height 64 in 64 in MEDGEN ([facility] [place]) Heart rate 68 /min 68 /min MEDGEN ([facility] [place]) Heart rate 68 /min 68 /min MEDGEN ([facility] [place]) Body temperature 98.1 F 98.1 F MEDGEN ( [facility] [place]) Inhaled oxygen 99 % 99 % MEDGEN ([facility], ) Body mass index 22.7 kg/m2 22.7 kg/m2 MEDGEN (S t (BMI) [Ratio] [facility] [place], ) Diastolic blood 90 mm[Hg] 90 mm[Hg] MEDGEN (S t pressure [facility] [place]) Systolic blood 192 mm[Hg] 192 mm[Hg] MEDGEN ([facility] , ) Body weight 132 lb 132 lb MEDGEN ([facility] [place]) Body height 64 in 64 in MEDGEN ([facility] [place]) Heart rate 68 /min 68 /min MEDGEN ([facility] [place]) Body temperature 98.1 F 98.1 F MEDGEN ( [facility] [place]) Inhaled oxygen 99 % 99 % MEDGEN ([facility], ) Body mass index 22.7 kg/m2 22.7 kg/m2 MEDGEN (S t (BMI) [Ratio] [facility] [place], ) Diastolic blood 90 mm[Hg] 90 mm[Hg] MEDGEN (S t pressure [facility] [place]) Systolic blood 192 mm[Hg] 192 mm[Hg] MEDGEN ([facility] [place]) Body weight 132 lb 132 lb MEDGEN ([facility] [place]) Body height 64 in 64 in MEDGEN ([facility] [place]) Heart rate 68 /min 68 /min MEDGEN ([facility] [place]) Body temperature 98.1 F 98.1 F MEDGEN ( [facility] [place]) Inhaled oxygen 99 % 99 % MEDGEN ([facility], ) Body mass index 22.7 kg/m2 22.7 kg/m2 MEDGEN (S t (BMI) [Ratio] [facility] [place], ) Diastolic blood 90 mm[Hg] 90 mm[Hg] MEDGEN (S t pressure [facility] [place]) Systolic blood 192 mm[Hg] 192 mm[Hg] MEDGEN ([facility] [place]) Body weight 132 lb 132 lb MEDGEN ([facility] [place]) Body height 64 in 64 in MEDGEN ([facility] [place]) Heart rate 68 /min 68 /min MEDGEN ([facility] [place]) Body temperature 98.1 F 98.1 F MEDGEN ( [facility] [place]) Inhaled oxygen 99 % 99 % MEDGEN ([facility], ) Body mass index 22.7 kg/m2 22.7 kg/m2 MEDGEN (S t (BMI) [Ratio] [facility] [place], ) Diastolic blood 90 mm[Hg] 90 mm[Hg] MEDGEN (S t pressure [facility] [place]) Systolic blood 192 mm[Hg] 192 mm[Hg] MEDGEN ([facility] [place]) Body weight 132 lb 132 lb MEDGEN ([facility] [place]) Body height 64 in 64 in MEDGEN ([facility] [place])
[2020-06-29] MEDS ORDERED: SODIUM CHLORIDE 500 ML IV ONE (10:00)
[2020-06-29] MEDS ORDERED: amLODIPine BESYLATE 5 MG TABLET (FP) PO ONE (10:35)
[2020-06-29] MEDS ORDERED: SODIUM CHLORIDE 0.45% 500 ML IV SCH (10:45)
[2020-06-29] MEDS ORDERED: DEXAMETHASONE SODIUM PHOSPHATE 20 MG, ONDANSETRON INJECTION 8 MG in SODIUM CHLORIDE 100 ML IVPB ONE (11:00)
[2020-06-29] MEDS ORDERED: BORTEZOMIB (VELCADE) 2.5 MG/ML SUB-Q INJECTION SQ ONE (11:30)
[2020-06-29] MEDS ORDERED: CYCLOPHOSPHAMIDE PO ONE (11:30)
[2020-06-29 12:08] LABS: BASO % 1.1 % (0-2.0); EOS % 6.6 % (0-4.5); HEMATOCRIT 30.8 % (35.4-49); HEMOGLOBIN 10.2 GM/dL (11.7-16.9); LYMPH % 18.9 % (8-40); MCH 33.6 pg (25.7-33.7); MCHC 33.3 g/dl (32.0-35.9); MEAN PLT VOLUME 7.8 fl (7.5-11.1); MONO % 17.9 % (3.8-10.2); NEUT % 55.5 % (42.8-82.8); PLATELET COUNT 167 K/MM3 (134-434); RBC 3.05 M/mm3 (4.00-5.60); RDW 20.2 % (11.9-15.9)
[2020-06-29 12:35] LABS: ALBUMIN 3.2 g/dl (3.4-5.0); BILIRUBIN,DIRECT 0.1 mg/dL (0.0-0.2); BILIRUBIN,TOTAL 0.2 mg/dL (0.2-1); BLOOD UREA NITROGEN 36.1 mg/dL (7-18); CALCIUM 8.7 mg/dL (8.5-10.1); CREATININE 4.6 mg/dL (0.55-1.3); MAGNESIUM 2.2 mg/dL (1.8-2.4); POTASSIUM 4.3 mmol/L (3.5-5.1); TOT PROT 8.3 g/dl (6.4-8.2); URIC ACID 6.1 mg/dL (2.6-7.2)
[2020-06-29 17:52] VITALS: BP 141/80; PULSE 76; TEMP 97.7
== END 2020-06-29 15:00 | disposition home or self-care (01) ==
LOC: JONCCHEMO 06:39
PROVIDERS: ATTEND Internal Medicine Hematology & Oncology
PROC: 3E01305 Introduction of Other Antineoplastic into Subcutaneous Tissue, Percutaneous Approach (ICD-10-PCS; principal; 2020-06-29)
PROC: 3E033GC Introduction of Other Therapeutic Substance into Peripheral Vein, Percutaneous Approach (ICD-10-PCS; 2020-06-29)
DX: Z51.11 Encounter for antineoplastic chemotherapy (principal); C90.00 Multiple myeloma not having achieved remission; D47.2 Monoclonal gammopathy
CPT/HCPCS: 36415; 80053; 80076; 83615; 83735; 84550; 85025; 96361; 96365; 96401; J2405; J9041

== ENCOUNTER 2020-07-06 06:18 | Day surgery (SDC) | payer OTHER ==
--- OUTSIDE RECORDS SUMMARY | 2020-07-06 08:08 | XMS ---
[...] is protected by Article 27-F of the [facility] Public Health law. If you continue you may haveaccess to information: Regarding HIV / AIDS; Provided by facilities licensed or operated by the [facility] Office of Mental Health; or Provided by the [facility] Office for People With Developmental Disabilities. If such information is present, then the following [facility] mandated warning applies: This information has [...] law may result in a fine or correction sentence or both. A general authorization for the release of medical or other information is NOT sufficient authorization for further disclosure. Encounters Encounter Providers Location Date Indications Data Source(s ) Attender: MD Quispe 2020 [facility] 12:00:00 AM EDT [facility] Office Attender: MD Jose Enrique Owen 2020 12:00:00 A M EDT [facility] ([facility] Office Attender: MD Jose Enrique Owen 2020 12:00:00 A M EDT [facility] Office Attender: MD Jose Enrique Owen 2020 12:00:00 A M EDT [facility] Office Attender: MD Jose Enrique Owen 2020 12:00:00 A M EDT [facility] Office Attender: MD Jose Enrique Owen 2020 12:00:00 A M EDT [facility] ) Office Attender: MD Jose Enrique Owen 06/14/2020 12:00:00 A M EDT [facility] ) Office Attender: MD Jose Enrique Owen 06/14/2020 [...] 05/31/2020 12:00:00 A M EDT [facility] ([facility], ) Office Attender: Russell Kendall 05/05/2020 12:00:00 AM E DT [facility] ([facility], ) Office Attender: Russell Kendall 05/05/2020 12:00:00 AM E DT [facility] ([facility], ) Office Attender: Russell Kendall 05/05/2020 12:00:00 AM E DT [facility] ([facility], ) Office Attender: MD Jose Enrique [...] Office Outpatient 05/02/2020 10:37:00 AM EDT MULT MYEL [facility] MULT MYELOMA Attender: MD Jose Enrique Owen 04/26/2020 [...] 04/12/2020 12:00:00 A M EDT [facility] ([facility], ) Lab Attender: MD Jose Enrique Owen 04/12/2020 12:00:00 A M EDT [facility] ([facility], ) Lab Attender: MD Jose Enrique Owen 04/12/2020 12:00:00 A M EDT [facility] ([facility], ) Lab Attender: MD Jose Enrique Owen 04/12/2020 12:00:00 A M EDT [facility] ([facility], ) Lab Attender: MD Jose Enrique Owen 04/12/2020 12:00:00 A M EDT [facility] ([facility], ) Lab Attender: Russell Kendall 03/24/2020 12:00:00 AM E DT [facility] ([facility], ) Office Attender: Russell Kendall 03/24/2020 12:00:00 AM E DT [facility] ([facility], ) Office Attender: Russell Kendall 03/24/2020 12:00:00 AM E DT [facility] ([facility], ) Office Attender: Russell Kendall 03/24/2020 12:00:00 AM E DT [facility] ([facility], ) Office Attender: Russell Kendall 03/24/2020 12:00:00 AM E DT [facility] ([facility], ) Office Attender: Russell Kendall 03/24/2020 12:00:00 AM E DT [facility] ([facility], ) Office Attender: MD Jose Enrique Owen [...] [facility] Office Outpatient 11/02/2019 04:18:00 PM [facility] Outpatient 11/02/2019 12:00:00 AM [facility] 10/21/2019 04:12:00 PM [facility] Patient admitted. Immunizations Vaccine Date Status [...] PC) Pneumococcal conjugate 08/27/2019 completed [facility]GE N ([facility] 13 12:00:00 AM EST Medical, PC) [...] [facility] 12:00:00 AM EST Medical, PC) Medications Medication Brand Start Product Dose Route Administrative Pharmacy [facility] Indications Reaction Description Data Name Date Form Instructions Instructions Source(s) Famotidine FAMOTI 06/19/ TABLET 30 complet FAMOT IDINE [facility] (St 20 MG Oral DINE:3 2019 ed [facility] Tablet 95488 12:00: Medical, FAMOTIDINE: 00 AM PC) [id number] EDT 24 HR NIFEDI 06/14/ TABLET, 90 complet NIFEDIPIN E MED[facility] (St Nifedipine PINE:1 2019 EXTENDED ed [facility] n's 60 MG 00723 12:00: RELEASE Medical, Extended 00 AM PC) Release EDT Oral Tablet NIFEDIPINE: [id number] Labetalol LABETA 06/14/ TABLET 60 complet LABETA LOL MEDGEN (St hydrochlori LOL:89 2019 ed Juan C's de 300 MG 6766 12:00: Medical, Oral Tablet 00 AM PC) LABETALOL:8 EDT 71104 Furosemide FUROSE 06/14/ TABLET 30 complet FUROS EMIDE [facility] (St 20 MG Oral MIDE:3 2019 ed [facility] Tablet 62271 12:00: Medical, FUROSEMIDE: 00 AM PC) 039498 EDT Labetalol LABETA 06/14/ TABLET 60 complet LABETA LOL MEDGEN (St hydrochlori LOL:89 2019 ed [facility] C's de 300 MG 6766 12:00: Medical, Oral Tablet 00 AM PC) LABETALOL:8 EDT 54389 Furosemide FUROSE 06/14/ TABLET 30 complet FUROS EMIDE [facility]GEN (St 20 MG Oral MIDE:3 2019 ed [facility] Tablet 23254 12:00: Medical, FUROSEMIDE: 00 AM PC) 469116 EDT 24 HR NIFEDI 06/14/ TABLET, 90 complet NIFEDIPIN E MED[facility] (St Nifedipine PINE:1 2019 EXTENDED ed Vincent n's 60 MG 99633 12:00: RELEASE Medical, Extended 00 AM PC) Release EDT Oral Tablet NIFEDIPINE: 19791209 Oxybutynin OXYBUT 06/13/ TABLET 30 complet OXYBU TYNIN [facility] (St chloride 5 YNIN:8 2019 ed [facility]'s MG Oral 18064 12:00: Medical, Tablet 00 AM PC) OXYBUTYNIN: EDT 865337 Oxybutynin OXYBUT 06/13/ TABLET 30 complet OXYBU TYNIN [facility] (St chloride 5 YNIN:8 2019 ed [facility] MG Oral 87849 12:00: Medical, Tablet 00 AM PC) OXYBUTYNIN: EDT 559109 Docusate DOCUSA 05/31/ CAPSULE 270 complet DOCUSA TE MEDGEN (St Sodium 100 TE:111 2019 ed [facility] MG Oral 5005 12:00: Medical, Capsule 00 AM PC) DOCUSATE:11 EDT 66856 Hydroxyzine HYDROX complet HYDROX YZINE MEDGEN (St Hydrochlori YZINE: 2019 ed [facility] C's de 10 MG 058593 12:00: Medical , Oral Tablet 00 AM PC) HYDROXYZINE EDT :184195 AQUAPHOR:20 05/31/ OINTMENT 1 complet AQUA PHOR MED[facility] (St 40631 2019 ed [facility] 12:00: Medical, 00 AM PC) EDT AQUAPHOR:20 05/31/ OINTMENT 1 complet AQUA PHOR MEDGEN (St 53178 2019 ed [facility] 12:00: Medical, 00 AM PC) EDT Docusate DOCUSA 05/31/ CAPSULE 270 complet DOCUSA TE MEDGEN (St Sodium 100 TE:111 2019 ed [facility] MG Oral 5005 12:00: Medical, Capsule 00 AM PC) DOCUSATE:11 EDT 46442 Docusate DOCUSA 05/31/ CAPSULE 270 complet DOCUSA TE MEDGEN (St Sodium 100 TE:111 2019 ed [facility] MG Oral 5005 12:00: Medical, Capsule 00 AM PC) DOCUSATE:11 EDT 76529 AQUAPHOR:20 05/31/ OINTMENT 1 complet AQUA PHOR MEDGEN (St 50445 2019 ed [facility] 12:00: Medical, 00 AM PC) EDT Hydroxyzine HYDROX complet HYDROX YZINE MED[facility] (St Hydrochlori YZINE: 2019 ed [facility] de 10 MG [id number] 12:00: Medical , Oral Tablet 00 AM PC) HYDROXYZINE EDT :337979 Hydroxyzine HYDROX complet HYDROX YZINE MED[facility] (St Hydrochlori YZINE: 2019 ed [facility] de 10 MG 535394 12:00: Medical , Oral Tablet 00 AM PC) HYDROXYZINE EDT :002576 Oxybutynin OXYBUT 05/10/ TABLET 30 complet OXYBU TYNIN [facility] (St chloride 5 YNIN:8 2019 ed [facility] MG Oral 93435 12:00: Medical, Tablet 00 AM PC) OXYBUTYNIN: EDT 686279 24 HR NIFEDI 08/05/ TABLET, 90 complet NIFEDIPIN E [facility] (St Nifedipine PINE:1 2019 EXTENDED ed Vincent n's 30 MG 66554 12:00: RELEASE Medical, Extended 00 AM PC) Release EDT Oral Tablet NIFEDIPINE: 19791208 24 HR NIFEDI 08/05/ TABLET, 90 complet NIFEDIPIN E MED[facility] (St Nifedipine PINE:1 2019 EXTENDED ed Vincent n's 30 MG 83646 12:00: RELEASE Medical, Extended 00 AM PC) Release EDT Oral Tablet NIFEDIPINE: 19791208 Oxybutynin OXYBUT 08/05/ TABLET 30 complet OXYBU TYNIN MED[facility] (St chloride 5 YNIN:8 2019 ed [facility]'s MG Oral 18223 12:00: Medical, Tablet 00 AM PC) OXYBUTYNIN: EDT 139692 Oxybutynin OXYBUT 08/05/ TABLET 30 complet OXYBU TYNIN MEDGEN (St chloride 5 YNIN:8 2019 ed [facility] MG Oral 99906 12:00: Medical, Tablet 00 AM PC) OXYBUTYNIN: EDT 618462 24 HR NIFEDI 08/05/ TABLET, 90 complet NIFEDIPIN E MEDGEN (St Nifedipine PINE:1 2019 EXTENDED ed Vincent n's 30 MG 19100 12:00: RELEASE Medical, Extended 00 AM PC) Release EDT Oral Tablet NIFEDIPINE: 19791208 RESTORATIONIST complet RESTORATIONIST MEDGEN (St THERMOMETER 2020 ed THERMOMETER J ohn[facility] MISCELLANEO 12:00: MISCELLANEO U Medical, US: 00 AM S PC) EDT RESTORATIONIST complet RESTORATIONIST MEDGEN (St THERMOMETER 2020 ed THERMOMETER J ohn[facility] MISCELLANEO 12:00: MISCELLANEO U Medical, US: 00 AM S PC) EDT RESTORATIONIST complet RESTORATIONIST MEDGEN (St THERMOMETER 2020 ed THERMOMETER J ohn's MISCELLANEO 12:00: MISCELLANEO U Medical, US: 00 AM S PC) EDT RESTORATIONIST complet RESTORATIONIST MEDGEN (St THERMOMETER 2020 ed THERMOMETER J ohn's MISCELLANEO 12:00: MISCELLANEO U Medical, US: 00 AM S PC) EDT RESTORATIONIST complet RESTORATIONIST MEDGEN (St THERMOMETER 2019 ed THERMOMETER J ohn's MISCELLANEO 12:00: MISCELLANEO [...] Oral APINE: 2019 ed [facility] Tablet [id number] 12:00: Medical, MIRTAZAPINE 00 AM PC) :160379 EDT Labetalol LABETA 05/05/ TABLET 60 complet LABETA LOL MED[facility] (St hydrochlori LOL:89 2019 ed [facility] de 100 MG 6758 12:00: Medical, Oral Tablet 00 AM PC) LABETALOL:8 EDT 05582 Hydralazine HYDRAL 05/05/ TABLET 90 complet HYDR ALAZINE MED[facility] (St Hydrochlori AZINE: 2019 ed [facility] de 25 MG 389961 12:00: Medical , Oral Tablet 00 AM PC) HYDRALAZINE EDT :798402 Furosemide FUROSE 05/05/ TABLET 30 complet FUROS EMIDE [facility] (St 20 MG Oral MIDE:3 2019 ed [facility] Tablet 17042 12:00: Medical, FUROSEMIDE: 00 AM PC) 514353 EDT BLOOD complet BLOOD MED[facility] ( St [...] 2019 ed [facility] de 25 MG 154324 12:00: Medical , Oral Tablet 00 AM PC) HYDRALAZINE EDT :279462 Furosemide FUROSE 05/05/ TABLET 30 complet FUROS EMIDE MEDGEN (St 20 MG Oral MIDE:3 2019 ed [facility] Tablet 08120 12:00: Medical, FUROSEMIDE: 00 AM PC) 481738 EDT BLOOD complet BLOOD MED[facility] ( PRESSURE 2019 ed PRESSURE KIT Vincent n's KIT: 12:00: Medical, 00 AM PC) EDT Hydralazine HYDRAL 05/05/ TABLET 90 complet HYDR ALAZINE MED[facility] (St Hydrochlori AZINE: 2019 ed Juan C's de 25 MG 501187 12:00: Medical , Oral Tablet 00 AM PC) HYDRALAZINE EDT :986573 Sodium SODIUM 05/05/ TABLET 360 complet SODIUM [...] Oral APINE: 2019 ed [facility] Tablet [id number] 12:00: Medical, MIRTAZAPINE 00 AM PC) :022083 EDT BLOOD complet BLOOD MED[facility] ( PRESSURE 2019 ed PRESSURE KIT Vincent n's KIT: 12:00: Medical, 00 AM PC) EDT Mirtazapine MIRTAZ 05/05/ TABLET 30 complet MIRT AZAPINE MED[facility] (St 7.5 MG Oral APINE: 2019 ed Juan C[facility] Tablet [id number] 12:00: Medical, MIRTAZAPINE 00 AM PC) :607692 EDT Sodium SODIUM 05/05/ TABLET 360 complet SODIUM ME DGEN (St Bicarbonate BICARB 2019 ed BICARBONATE Juan C's 650 MG Oral ZIA: 12:00: Medi nils, Tablet [id number] 00 AM PC) SODIUM EDT BICARBONATE :075490 Sodium SODIUM 05/05/ TABLET 360 complet SODIUM ME DGEN (St Bicarbonate BICARB 2019 ed BICARBONATE Juan C's 650 MG Oral ZIA: 12:00: Medi nils, Tablet [id number] 00 AM PC) SODIUM EDT BICARBONATE :[id number] Labetalol LABETA 05/05/ TABLET 60 complet LABETA LOL MEDGEN (St hydrochlori LOL:89 2019 ed Juan C's de 100 MG 6758 12:00: Medical, Oral Tablet 00 AM PC) LABETALOL:8 EDT 06818 Mirtazapine MIRTAZ 05/05/ TABLET 30 complet MIRT AZAPINE MED[facility] (St 7.5 MG Oral APINE: 2019 ed [facility] C[facility] Tablet [id number] 12:00: Medical, MIRTAZAPINE 00 AM PC) :759744 EDT Hydralazine HYDRAL 05/05/ TABLET 90 complet HYDR ALAZINE MED[facility] (St Hydrochlori AZINE: 2019 ed Juan C's de 25 MG 921234 12:00: Medical , Oral Tablet 00 AM PC) HYDRALAZINE EDT :505889 BLOOD complet BLOOD MED[facility] ( St PRESSURE 2020 ed PRESSURE KIT Vincent n's KIT: 12:00: Medical, 00 AM PC) EDT Labetalol LABETA 05/05/ TABLET 60 complet LABETA LOL MEDGEN (St hydrochlori LOL:89 2019 ed Juan C's de 100 MG 6758 12:00: Medical, Oral Tablet 00 AM PC) LABETALOL:8 EDT 27649 Hydralazine HYDRAL 05/05/ TABLET 90 complet HYDR ALAZINE MEDGEN (St Hydrochlori AZINE: 2019 ed Juan C's de 25 MG 154132 12:00: Medical , Oral Tablet 00 AM PC) HYDRALAZINE EDT :941272 Mirtazapine MIRTAZ 05/05/ TABLET 30 complet MIRT AZAPINE MED[facility] (St 7.5 MG Oral APINE: 2019 ed [facility] C[facility] Tablet [id number] 12:00: Medical, MIRTAZAPINE 00 AM PC) :974136 EDT Furosemide FUROSE 05/05/ TABLET 30 complet FUROS EMIDE MEDGEN (St 20 MG Oral MIDE:3 2019 ed [facility] C[facility] Tablet 83950 12:00: Medical, FUROSEMIDE: 00 AM PC) 604560 EDT Allopurinol ALLOPU 05/05/ TABLET 30 complet ALLO PURINOL MEDGEN (St ALLOPURINOL RINOL: 2019 ed Juan C's :519 519 12:00: Medical, 00 AM PC) EDT BLOOD complet BLOOD MEDGEN ( St [...] 00 AM PC) SODIUM EDT BICARBONATE :[id number] Calcium CALCIU 05/03/ TABLET, 360 complet CALCIUM MEDGEN (St Carbonate 2019 CHEWABLE ed CARBONATE J ohn's 500 MG CARBON 12:00: Medical, Chewable ATE:30 00 AM PC) Tablet 8907 EDT CALCIUM CARBONATE:3 74652 Calcium CALCIU 05/03/ TABLET, 360 complet CALCIUM MED[facility] (St Carbonate 2019 CHEWABLE ed CARBONATE J ohn's 500 MG CARBON 12:00: Medical, Chewable ATE:30 00 AM PC) Tablet 8907 EDT CALCIUM CARBONATE:3 28231 Calcium CALCIU 05/03/ TABLET, 360 complet CALCIUM MED[facility] (St Carbonate 2019 CHEWABLE ed CARBONATE J ohn's 500 MG CARBON 12:00: Medical, Chewable ATE:30 00 AM PC) Tablet 8907 EDT CALCIUM CARBONATE:3 84721 Calcium CALCIU 05/03/ TABLET, 360 complet CALCIUM MEDGEN (St Carbonate 2019 CHEWABLE ed CARBONATE J ohn's 500 MG CARBON 12:00: Medical, Chewable ATE:30 00 AM PC) Tablet 8907 EDT CALCIUM CARBONATE:3 17731 Calcium CALCIU 05/03/ TABLET, 360 complet CALCIUM MEDGEN (St Carbonate 2019 CHEWABLE ed CARBONATE J ohn's 500 MG CARBON 12:00: Medical, Chewable ATE:30 00 AM PC) Tablet 8907 EDT CALCIUM CARBONATE:3 26247 Calcium CALCIU 05/03/ TABLET, 360 complet CALCIUM MEDGEN (St Carbonate 2019 CHEWABLE ed CARBONATE J ohn's 500 MG CARBON 12:00: Medical, Chewable ATE:30 00 AM PC) Tablet 8907 EDT CALCIUM CARBONATE:3 17343 Famotidine FAMOTI 04/26/ TABLET 90 complet FAMOT IDINE MED[facility] (St 40 MG Oral DINE:2 2019 ed [place] Tablet 42191 12:00: Medical, FAMOTIDINE: 00 AM PC) 288789 EDT Famotidine FAMOTI 04/26/ TABLET 90 complet FAMOT IDINE MEDGEN (St 40 MG Oral DINE:2 2019 ed Vicente Tablet 83253 12:00: Medical, FAMOTIDINE: 00 AM PC) 350928 EDT Sodium SODIUM 04/19/ TABLET 360 complet SODIUM ME DGEN (St Bicarbonate BICARB 2019 ed BICARBONATE [place] 650 MG Oral ZIA: 12:00: Medi nils, Tablet [id number] 00 AM PC) SODIUM EDT BICARBONATE :[id number] Labetalol LABETA 04/19/ TABLET 30 complet LABETA LOL MEDGEN (St hydrochlori LOL:89 2019 ed [place] de 100 MG 6758 12:00: Medical, Oral Tablet 00 AM PC) LABETALOL:8 EDT 58339 Allopurinol ALLOPU 04/19/ complet ALLOPU RINOL MED[facility] (St ALLOPURINOL RINOL: 2019 ed Juan C's :519 519 12:00: Medical, 00 AM PC) EDT Furosemide FUROSE 04/19/ complet FUROSEM REHAN MEDGEN (St 40 MG Oral MIDE:3 2019 ed [place] Tablet 16947 12:00: Medical, FUROSEMIDE: 00 AM PC) 044936 EDT Allopurinol ALLOPU 15/ complet ALLOPU RINOL MED[facility] (St ALLOPURINOL RINOL: 2019 ed Juan C's :519 519 12:00: Medical, 00 AM PC) EDT Furosemide FUROSE 15/ complet FUROSEM REHAN MEDGEN (St 40 MG Oral MIDE:3 2019 ed [place] Tablet 73657 12:00: Medical, FUROSEMIDE: 00 AM PC) 651578 EDT Allopurinol ALLOPU 15/ complet ALLOPU RINOL MEDGEN (St ALLOPURINOL RINOL: 2019 ed Juan C's :519 519 12:00: Medical, 00 AM PC) EDT Furosemide FUROSE 15/ complet FUROSEM REHAN MEDGEN (St 40 MG Oral MIDE:3 2019 ed [facility] C[facility] Tablet 12498 12:00: Medical, FUROSEMIDE: 00 AM PC) 287419 EDT Sodium SODIUM 04/19/ TABLET 360 complet SODIUM ME DGEN (St Bicarbonate BICARB 2019 ed BICARBONATE Juan C's 650 MG Oral ZIA: 12:00: Medi nils, Tablet [id number] 00 AM PC) SODIUM EDT BICARBONATE :162950 Labetalol LABETA 07/15/ TABLET 30 complet LABETA LOL MEDGEN (St hydrochlori LOL:89 2019 ed Juan C's de 100 MG 6758 12:00: Medical, Oral Tablet 00 AM PC) LABETALOL:8 EDT 81008 Labetalol LABETA 07/15/ TABLET 30 complet LABETA LOL MEDGEN (St hydrochlori LOL:89 2019 ed Juan C's de 100 MG 6758 12:00: Medical, Oral Tablet 00 AM PC) LABETALOL:8 EDT 99690 Sodium SODIUM 15/ TABLET 360 complet SODIUM ME DGEN (St Bicarbonate BICARB 2019 ed BICARBONATE Juan C's 650 MG Oral ZIA: 12:00: Medi nils, Tablet [id number] 00 AM PC) SODIUM EDT BICARBONATE :925085 Tamsulosin TAMSUL 12/14/ CAPSULE 30 complet TAMS ULOSIN MED[facility] (St hydrochlori OSIN:8 2019 ed Juan C's de 0.4 MG 10026 12:00: Medical , Oral 00 AM PC) Capsule EDT TAMSULOSIN: 891787 Furosemide FUROSE 12/14/ TABLET 30 complet FUROS EMIDE MED[facility] (St 20 MG Oral MIDE:3 2019 ed Juan C[facility] Tablet 11377 12:00: Medical, FUROSEMIDE: 00 AM PC) 956551 EDT Furosemide FUROSE 11/ TABLET 30 complet FUROS EMIDE MEDGEN (St 20 MG Oral MIDE:3 2019 ed Juan C[facility] Tablet 67075 12:00: Medical, FUROSEMIDE: 00 AM PC) 511784 EDT Tamsulosin TAMSUL 11/ CAPSULE 30 complet TAMS ULOSIN MEDGEN (St hydrochlori OSIN:8 2019 ed Juan C's de 0.4 MG 35562 12:00: Medical , Oral 00 AM PC) Capsule EDT TAMSULOSIN: 760815 Furosemide FUROSE 11/ TABLET 30 complet FUROS EMIDE MED[facility] (St 20 MG Oral MIDE:3 2019 ed Juan C[facility] Tablet 15183 12:00: Medical, FUROSEMIDE: 00 AM PC) 185602 EDT Tamsulosin TAMSUL 11/ CAPSULE 30 complet TAMS ULOSIN MEDGEN (St hydrochlori OSIN:2019 ed Juan C's de 0.4 MG 97837 12:00: Medical , Oral 00 AM PC) Capsule EDT TAMSULOSIN: 442642 Tamsulosin TAMSUL 12/14/ CAPSULE 30 complet TAMS ULOSIN MEDGEN (St hydrochlori OSIN:8 2019 ed Juan C's de 0.4 MG 89400 12:00: Medical , Oral 00 AM PC) Capsule EDT TAMSULOSIN: 110462 Furosemide FUROSE 11/ TABLET 30 complet FUROS EMIDE MEDGEN (St 20 MG Oral MIDE:3 2019 ed Juan C[facility] Tablet 82739 12:00: Medical, FUROSEMIDE: 00 AM PC) 505273 EDT Tamsulosin TAMSUL 12/14/ CAPSULE 30 complet TAMS ULOSIN MEDGEN (St hydrochlori OSIN:8 2019 ed Juan C's de 0.4 MG 59357 12:00: Medical , Oral 00 AM PC) Capsule EDT TAMSULOSIN: 017338 Furosemide FUROSE 12/14/ TABLET 30 complet FUROS EMIDE MEDGEN (St 20 MG Oral MIDE:3 2019 ed Juan C[facility] Tablet 90931 12:00: Medical, FUROSEMIDE: 00 AM PC) 282712 EDT Tamsulosin TAMSUL 12/14/ CAPSULE 30 complet TAMS ULOSIN MEDGEN (St hydrochlori OSIN:2019 ed Juan C's de 0.4 MG 44841 12:00: Medical , Oral 00 AM PC) Capsule EDT TAMSULOSIN: 982082 Tamsulosin TAMSUL 12/14/ CAPSULE 30 complet TAMS ULOSIN MEDGEN (St hydrochlori OSIN:8 2019 ed Juan C's de 0.4 MG 26102 12:00: Medical , Oral 00 AM PC) Capsule EDT TAMSULOSIN: 111732 Tamsulosin TAMSUL 12/14/ CAPSULE 30 complet TAMS ULOSIN MEDGEN (St hydrochlori OSIN:8 2019 ed Juan C's de 0.4 MG 62666 12:00: Medical , Oral 00 AM PC) Capsule EDT TAMSULOSIN: 866324 Furosemide FUROSE 12/14/ TABLET 30 complet FUROS EMIDE MEDGEN (St 20 MG Oral MIDE:3 2019 ed Juan C's Tablet 44086 12:00: Medical, FUROSEMIDE: 00 AM PC) 445441 EDT Tamsulosin TAMSUL 12/14/ CAPSULE 30 complet TAMS ULOSIN MEDGEN (St hydrochlori OSIN:2019 ed Juan C's de 0.4 MG 68290 12:00: Medical , Oral 00 AM PC) Capsule EDT TAMSULOSIN: 851164 Tamsulosin TAMSUL 12/14/ CAPSULE 30 complet TAMS ULOSIN MEDGEN (St hydrochlori OSIN:8 2019 ed Juan C's de 0.4 MG 39300 12:00: Medical , Oral 00 AM PC) Capsule EDT TAMSULOSIN: 015587 Tamsulosin TAMSUL 12/14/ CAPSULE 30 complet TAMS ULOSIN MEDGEN (St hydrochlori OSIN:8 2019 ed Juan C's de 0.4 MG 90771 12:00: Medical , Oral 00 AM PC) Capsule EDT TAMSULOSIN: 612889 Furosemide FUROSE 12/14/ TABLET 30 complet FUROS EMIDE MEDGEN (St 20 MG Oral MIDE:3 2019 ed Juan C's Tablet 49698 12:00: Medical, FUROSEMIDE: 00 AM PC) 780959 EDT Tamsulosin TAMSUL 12/14/ CAPSULE 30 complet TAMS ULOSIN MEDGEN (St hydrochlori OSIN:8 2019 ed Juan C's de 0.4 MG 75850 12:00: Medical , Oral 00 AM PC) Capsule EDT TAMSULOSIN: 634695 Hydroxyzine HYDROX 11/17/ complet HYDROX YZINE MED[facility] (St Hydrochlori YZINE: 2019 ed Juan C's de 10 MG 622024 12:00: Medical , Oral Tablet 00 AM PC) HYDROXYZINE EST :454812 Hydralazine HYDRAL 11/17/ TABLET 90 complet HYDR ALAZINE MED[facility] (St Hydrochlori AZINE: 2019 ed Juan C's de 25 MG 345193 12:00: Medical , Oral Tablet 00 AM PC) HYDRALAZINE EST :254516 halobetasol HALOBE 11/17/ complet HALOBE TASOL MED[facility] (St propionate TASOL 2019 ed TOPICAL Juan C' s 0.0005 TOPICA 12:00: Medical, MG/MG L:9779 00 AM PC) Topical 78 EST Ointment HALOBETASOL TOPICAL:977 978 Amlodipine AMLODI 11/17/ complet AMLODIP INE MED[facility] (St 10 MG Oral PINE:3 2019 ed Juan C's Tablet 95440 12:00: Medical, AMLODIPINE: 00 AM PC) 616583 EST atorvastati ATORVA 11/17/ complet ATORVA STATIN MEDGEN (St n 10 MG STATIN 2019 ed Juan C[facility] Oral Tablet :79522 12:00: Medi nils, ATORVASTATI 2 00 AM PC) N:560708 EST Aspirin 81 ASPIRI 11/17/ complet ASPIRIN [...] STATIN 2019 ed Juan C's Oral Tablet :52838 12:00: Medi nils, ATORVASTATI 2 00 AM PC) N:363118 EST Aspirin 81 ASPIRI 11/17/ complet ASPIRIN MED[facility] (St MG Delayed N:3084 2019 ed Juan C's Release 16 12:00: Medical, Oral Tablet 00 AM PC) ASPIRIN:308 EST 416 Hydralazine HYDRAL 11/17/ TABLET 90 complet HYDR ALAZINE MED[facility] (St Hydrochlori AZINE: 2019 ed Juan C's de 25 MG 275187 12:00: Medical , Oral Tablet 00 AM PC) HYDRALAZINE EST :659806 Tacrolimus TACROL 11/17/ complet TACROLI MUS MED[facility] (St 0.001 MG/MG IMUS 2019 ed TOPICAL Juan C' s Topical TOPICA 12:00: Medical, Ointment L:3142 00 AM PC) TACROLIMUS 66 EST TOPICAL:314 266 atorvastati ATORVA 11/17/ complet ATORVA STATIN MED[facility] (St n 10 MG STATIN 2019 ed Juan C[facility] Oral Tablet :17911 12:00: Medi nils, ATORVASTATI 2 00 AM PC) N:313135 EST halobetasol HALOBE 11/17/ complet HALOBE TASOL [...] Oral Tablet 00 AM PC) LABETALOL:8 EST 36898 Amlodipine AMLODI 11/17/ complet AMLODIP INE MED[facility] (St 10 MG Oral PINE:3 2019 ed Juan C's Tablet 98122 12:00: Medical, AMLODIPINE: 00 AM PC) 380866 EST Labetalol LABETA 11/17/ TABLET 120 complet LABETA LOL MEDGEN (St hydrochlori LOL:89 2019 ed Juan C's de 200 MG 6762 12:00: Medical, Oral Tablet 00 AM PC) LABETALOL:8 EST 77599 Hydroxyzine HYDROX 11/17/ complet HYDROX YZINE MED[facility] (St Hydrochlori YZINE: 2019 ed Juan C's de 10 MG 913609 12:00: Medical , Oral Tablet 00 AM PC) HYDROXYZINE EST :713859 Hydralazine HYDRAL 11/17/ TABLET 90 complet HYDR ALAZINE MED[facility] (St Hydrochlori AZINE: 2019 ed Juan C's de 25 MG 348273 12:00: Medical , Oral Tablet 00 AM PC) HYDRALAZINE EST :567676 halobetasol HALOBE 11/17/ complet HALOBE TASOL MED[facility] (St propionate TASOL 2019 ed TOPICAL Juan C' s 0.0005 TOPICA 12:00: Medical, MG/MG L:9779 00 AM PC) Topical 78 EST Ointment HALOBETASOL TOPICAL:977 978 atorvastati ATORVA 11/17/ complet ATORVA STATIN MEDGEN (St n 10 MG STATIN 2019 ed Juan C[facility] Oral Tablet :73347 12:00: Medi nils, ATORVASTATI 2 00 AM PC) N:751356 EST Tacrolimus TACROL 11/17/ complet TACROLI MUS MEDGEN (St 0.001 MG/MG IMUS 2019 ed TOPICAL Juan C' s Topical TOPICA 12:00: Medical, Ointment L:3142 00 AM PC) TACROLIMUS 66 EST TOPICAL:314 266 Amlodipine AMLODI 11/17/ complet AMLODIP INE MED[facility] (St 10 MG Oral PINE:3 2019 ed Juan C[facility] Tablet 07177 12:00: Medical, AMLODIPINE: 00 AM PC) 582347 EST Hydroxyzine HYDROX 11/17/ complet HYDROX YZINE MED[facility] (St Hydrochlori YZINE: 2019 ed Juan C's de 10 MG 396589 12:00: Medical , Oral Tablet 00 AM PC) HYDROXYZINE EST :934885 Labetalol LABETA 11/17/ TABLET 120 complet LABETA LOL MEDGEN (St hydrochlori LOL:89 2019 ed Juan C's de 200 MG 6762 12:00: Medical, Oral Tablet 00 AM PC) LABETALOL:8 EST 97493 Hydralazine HYDRAL 11/17/ TABLET 90 complet HYDR ALAZINE MEDGEN (St Hydrochlori AZINE: 2019 ed Juan C's de 25 MG 068859 12:00: Medical , Oral Tablet 00 AM PC) HYDRALAZINE EST :469222 Amlodipine AMLODI 11/17/ complet AMLODIP INE MEDGEN (St 10 MG Oral PINE:3 2019 ed Juan C's Tablet 40280 12:00: Medical, AMLODIPINE: 00 AM PC) [id number] EST halobetasol HALOBE 11/17/ complet HALOBE TASOL [...] STATIN 2019 ed Juan C's Oral Tablet :39464 12:00: Medi nils, ATORVASTATI 2 00 AM PC) N:[id number] EST Aspirin 81 ASPIRI 11/17/ complet ASPIRIN [...] 2019 ed Juan C's de 10 MG 137019 12:00: Medical , Oral Tablet 00 AM PC) HYDROXYZINE EST :[id number] Labetalol LABETA 11/17/ TABLET 120 complet LABETA LOL MEDGEN (St hydrochlori LOL:89 2019 ed Juna C's de 200 MG 6762 12:00: Medical, Oral Tablet 00 AM PC) LABETALOL:8 EST 44271 halobetasol HALOBE 11/17/ complet HALOBE TASOL MEDGEN (St propionate TASOL 2019 ed TOPICAL Juan C' s 0.0005 TOPICA 12:00: Medical, MG/MG L:9779 00 AM PC) Topical 78 EST Ointment HALOBETASOL TOPICAL:977 978 Hydralazine HYDRAL 11/17/ TABLET 90 complet HYDR ALAZINE MEDGEN (St Hydrochlori AZINE: 2019 ed Juan C's de 25 MG 127856 12:00: Medical , Oral Tablet 00 AM PC) HYDRALAZINE EST :517243 Aspirin 81 ASPIRI 11/17/ complet ASPIRIN MEDGEN (St MG Delayed N:3084 2019 ed Juan C's Release 16 12:00: Medical, Oral Tablet 00 AM PC) ASPIRIN:308 EST 416 Labetalol LABETA 11/17/ TABLET 120 complet LABETA LOL MEDGEN (St hydrochlori LOL:89 2019 ed Juan C's de 200 MG 6762 12:00: Medical, Oral Tablet 00 AM PC) LABETALOL:8 EST 17449 Tacrolimus TACROL 11/17/ complet TACROLI MUS MEDGEN (St 0.001 MG/MG IMUS 2019 ed TOPICAL Juan C' s Topical TOPICA 12:00: Medical, Ointment L:3142 00 AM PC) TACROLIMUS 66 EST TOPICAL:314 266 Tacrolimus TACROL 11/17/ complet TACROLI MUS MEDGEN (St 0.001 MG/MG IMUS 2020 ed TOPICAL Juan C' s Topical TOPICA 12:00: Medical, Ointment L:3142 00 AM PC) TACROLIMUS 66 EST TOPICAL:314 266 Hydroxyzine HYDROX complet HYDROX YZINE MEDGEN (St Hydrochlori YZINE: 2019 ed Juan C's de 10 MG [id number] 12:00: Medical , Oral Tablet 00 AM PC) HYDROXYZINE EST :[id number] Labetalol LABETA 11/17/ TABLET 120 complet LABETA LOL MEDGEN (St hydrochlori LOL:89 2019 ed Juan C's de 200 MG 6762 12:00: Medical, Oral Tablet 00 AM PC) LABETALOL:8 EST 45307 Tacrolimus TACROL 11/17/ complet TACROLI MUS MEDGEN [...] STATIN 2019 ed Juan C's Oral Tablet :[id number] 12:00: Medi nils, ATORVASTATI 2 00 AM PC) N:[id number] EST Aspirin 81 ASPIRI complet ASPIRIN MEDGEN (St MG Delayed N:3084 2019 ed Juan C's Release 16 12:00: Medical, Oral Tablet 00 AM PC) ASPIRIN:308 EST 416 Amlodipine AMLODI 11/17/ complet AMLODIP INE MEDGEN (St 10 MG Oral PINE:3 2019 ed Juan C's Tablet 49014 12:00: Medical, AMLODIPINE: 00 AM PC) [id number] EST atorvastati ATORVA complet ATORVA STATIN MEDGEN (St n 10 MG STATIN 2020 ed Juan C's Oral Tablet :00914 12:00: Medi nils, ATORVASTATI 2 00 AM PC) N:[id number] EST Aspirin 81 ASPIRI complet ASPIRIN MEDGEN (St MG Delayed N:3084 2019 ed Juan C's Release 16 12:00: Medical, Oral Tablet 00 AM PC) ASPIRIN:308 EST 416 atorvastati ATORVA complet ATORVA STATIN MEDGEN (St n 10 MG STATIN 2019 ed Juan C's Oral Tablet :[id number] 12:00: Medi nils, ATORVASTATI 2 00 AM PC) N:[id number] EST Tacrolimus TACROL complet TACROLI MUS MEDGEN (St 0.001 MG/MG IMUS 2019 ed TOPICAL Juan C' s Topical TOPICA 12:00: Medical, Ointment L:3142 00 AM PC) TACROLIMUS 66 EST TOPICAL:314 266 Aspirin 81 ASPIRI 11/17/ complet ASPIRIN MEDGEN (St MG Delayed N:3084 2019 ed Juan C's Release 16 12:00: Medical, Oral Tablet 00 AM PC) ASPIRIN:308 EST 416 atorvastati ATORVA complet ATORVA STATIN MEDGEN (St n 10 MG STATIN 2019 ed Juan C's Oral Tablet :28507 12:00: Medi nils, ATORVASTATI 2 00 AM PC) N:[id number] EST Aspirin 81 ASPIRI 11/17/ complet ASPIRIN MEDGEN (St MG Delayed N:3084 2019 ed Juan C's Release 16 12:00: Medical, Oral Tablet 00 AM PC) ASPIRIN:308 EST 416 Labetalol LABETA 11/17/ TABLET 120 complet LABETA LOL MEDGEN (St hydrochlori LOL:89 2019 ed Juan C's de 200 MG 6762 12:00: Medical, Oral Tablet 00 AM PC) LABETALOL:8 EST 95729 Hydralazine HYDRAL 11/17/ TABLET 90 complet HYDR ALAZINE MEDGEN (St Hydrochlori AZINE: 2019 ed Juan C's de 25 MG 156151 12:00: Medical , Oral Tablet 00 AM PC) HYDRALAZINE EST :470018 halobetasol HALOBE 11/17/ complet HALOBE TASOL MEDGEN (St propionate TASOL 2019 ed TOPICAL Juan C' s 0.0005 TOPICA 12:00: Medical, MG/MG L:9779 00 AM PC) Topical 78 EST Ointment HALOBETASOL TOPICAL:977 978 Hydroxyzine HYDROX 11/17/ complet HYDROX YZINE MEDGEN (St Hydrochlori YZINE: 2019 ed Juan C's de 10 MG [id number] 12:00: Medical , Oral Tablet 00 AM PC) HYDROXYZINE EST :904785 Hydroxyzine HYDROX complet HYDROX YZINE MEDGEN (St Hydrochlori YZINE: 2019 ed Juan C's de 10 MG [id number] 12:00: Medical , Oral Tablet 00 AM PC) HYDROXYZINE EST :[id number] Aspirin 81 ASPIRI 11/17/ complet ASPIRIN MEDGEN (St MG Delayed N:3084 2019 ed Juan C's Release 16 12:00: Medical, Oral Tablet 00 AM PC) ASPIRIN:308 EST 416 atorvastati ATORVA complet ATORVA STATIN MEDGEN (St n 10 MG STATIN 2019 ed Juan C's Oral Tablet :27471 12:00: Medi nils, ATORVASTATI 2 00 AM PC) N:[id number] EST halobetasol HALOBE 11/17/ complet HALOBE TASOL [...] EST Ointment HALOBETASOL TOPICAL:977 978 Tacrolimus TACROL complet TACROLI MUS MEDGEN (St 0.001 MG/MG IMUS 2019 ed TOPICAL Juan C' s Topical TOPICA 12:00: Medical, Ointment L:3142 00 AM PC) TACROLIMUS 66 EST TOPICAL:314 266 Hydralazine HYDRAL 11/17/ TABLET 90 complet HYDR ALAZINE MEDGEN (St Hydrochlori AZINE: 2019 ed Juan C's de 25 MG [id number] 12:00: Medical , Oral Tablet 00 AM PC) HYDRALAZINE EST :157444 Aspirin 81 ASPIRI 11/17/ complet ASPIRIN MEDGEN (St MG Delayed N:3084 2019 ed Juan C's Release 16 12:00: Medical, Oral Tablet 00 AM PC) ASPIRIN:308 EST 416 atorvastati ATORVA 11/17/ complet ATORVA STATIN MEDGEN (St n 10 MG STATIN 2019 ed Juan C's Oral Tablet :78716 12:00: Medi nils, ATORVASTATI 2 00 AM PC) N:[id number] EST Tacrolimus TACROL 11/17/ complet TACROLI MUS [...] Oral PINE:3 2019 ed Juan C's Tablet 70591 12:00: Medical, AMLODIPINE: 00 AM PC) [id number] EST atorvastati ATORVA 11/17/ complet ATORVA STATIN MEDGEN (St n 10 MG STATIN 2019 ed Juan C's Oral Tablet :97178 12:00: Medi nils, ATORVASTATI 2 00 AM PC) N:[id number] EST Amlodipine AMLODI 11/17/ complet AMLODIP INE MEDGEN (St 10 MG Oral PINE:3 2019 ed Juan C's Tablet 29707 12:00: Medical, AMLODIPINE: 00 AM PC) [id number] EST Tacrolimus TACROL 11/17/ complet TACROLI MUS [...] complet SA NTYL MEDGEN (St 0.25 UNT/MG :57406 2018 ed Juan C's Topical 17 12:00: Medical, Ointment 00 AM PC) [Santyl] EST SANTYL:1149 617 COLLAGENASE SANTYL 11/22/ OINTMENT 1 complet SA NTYL MEDGEN (St 0.25 UNT/MG :00410 2018 ed Juan C's Topical 17 12:00: Medical, Ointment 00 AM PC) [Santyl] EST SANTYL:1149 617 Labetalol LABETA 22/ TABLET 60 complet LABETA LOL MEDGEN (St hydrochlori LOL:89 2018 ed Juan C's de 100 MG 6758 12:00: Medical, Oral Tablet 00 AM PC) LABETALOL:8 EST 12191 COLLAGENASE SANTYL 08/27/ OINTMENT 1 complet SA NTYL MEDGEN (St 0.25 UNT/MG :22451 2018 ed Juan C's Topical 17 12:00: Medical, Ointment 00 AM PC) [Santyl] EST SANTYL:1149 617 Labetalol LABETA 22/ TABLET 60 complet LABETA LOL MEDGEN (St hydrochlori LOL:89 2018 ed Juan C's de 100 MG 6758 12:00: Medical, Oral Tablet 00 AM PC) LABETALOL:8 EST 20492 COLLAGENASE SANTYL 08/27/ OINTMENT 1 complet SA NTYL MEDGEN (St 0.25 UNT/MG :01200 2018 ed Juan C's Topical 17 12:00: Medical, Ointment 00 AM PC) [Santyl] EST SANTYL:1149 617 Labetalol LABETA 22/ TABLET 60 complet LABETA LOL MEDGEN (St hydrochlori LOL:89 2018 ed Juan C's de 100 MG 6758 12:00: Medical, Oral Tablet 00 AM PC) LABETALOL:8 EST 61628 Labetalol LABETA 22/ TABLET 60 complet LABETA LOL MEDGEN (St hydrochlori LOL:89 2018 ed Juan C's de 100 MG 6758 12:00: Medical, Oral Tablet 00 AM PC) LABETALOL:8 EST 16982 COLLAGENASE SANTYL 08/27/ OINTMENT 1 complet SA NTYL MEDGEN (St 0.25 UNT/MG :41005 2018 ed Juan C's Topical 17 12:00: Medical, Ointment 00 AM PC) [Santyl] EST SANTYL:1149 617 Labetalol LABETA 11/22/ TABLET 60 complet LABETA LOL MEDGEN (St hydrochlori LOL:89 2018 ed Juan C's de 100 MG 6758 12:00: Medical, Oral Tablet 00 AM PC) LABETALOL:8 EST 54271 COLLAGENASE SANTYL 22/ OINTMENT 1 complet SA NTYL MEDGEN (St 0.25 UNT/MG :03617 2018 ed Juan C's Topical 17 12:00: Medical, Ointment 00 AM PC) [Santyl] EST SANTYL:1149 617 COLLAGENASE SANTYL 22/ OINTMENT 1 complet SA NTYL MEDGEN (St 0.25 UNT/MG :07122 2018 ed Juan C's Topical 17 12:00: Medical, Ointment 00 AM PC) [Santyl] EST SANTYL:1149 617 Labetalol LABETA 11/22/ TABLET 60 complet LABETA LOL MEDGEN (St hydrochlori LOL:89 2018 ed Juan C's de 100 MG 6758 12:00: Medical, Oral Tablet 00 AM PC) LABETALOL:8 EST 48873 COLLAGENASE SANTYL 08/27/ OINTMENT 1 complet SA NTYL MEDGEN (St 0.25 UNT/MG :80961 2018 ed Juan C's Topical 17 12:00: Medical, Ointment 00 AM PC) [Santyl] EST SANTYL:1149 617 COLLAGENASE SANTYL 08/27/ OINTMENT 1 complet SA NTYL MEDGEN (St 0.25 UNT/MG :61960 2018 ed Juan C's Topical 17 12:00: Medical, Ointment 00 AM PC) [Santyl] EST SANTYL:1149 617 Labetalol LABETA 22/ TABLET 60 complet LABETA LOL MEDGEN (St hydrochlori LOL:89 2018 ed Juan C's de 100 MG 6758 12:00: Medical, Oral Tablet 00 AM PC) LABETALOL:8 EST 59472 COLLAGENASE SANTYL 22/ OINTMENT 1 complet SA NTYL MEDGEN (St 0.25 UNT/MG :99687 2018 ed Juan C's Topical 17 12:00: Medical, Ointment 00 AM PC) [Santyl] EST SANTYL:1149 617 COLLAGENASE SANTYL 22/ OINTMENT 1 complet SA NTYL MEDGEN (St 0.25 UNT/MG :78770 2018 ed Juan C's Topical 17 12:00: Medical, Ointment 00 AM PC) [Santyl] EST SANTYL:1149 617 COLLAGENASE SANTYL 22/ OINTMENT 1 complet SA NTYL MEDGEN (St 0.25 UNT/MG :35172 2018 ed Juan C's Topical 17 12:00: Medical, Ointment 00 AM PC) [Santyl] EST SANTYL:1149 617 Insurance Providers Payer name Policy type Policy ID Covered Covered alliance party's Policy P tomeka / Coverage alliance party ID relationship to Cantu Inf ormation type cantu HIP MEDICAID [id number] SP [id number] [facility] [id number] 1 [id number] MEDICAID [id number] 1 [id number] [place] [id number] SP [id number] [facility] [id number] PT [id number] ESSENTIAL 1 PLAN 1 MEDICAID [id number] SP [id number] SELF PAY SP INSURANCE Problems, Conditions, and Diagnoses Code Display Name Description Problem Type Effective Data Dates Source(s) L29.9 Pruritus, PRURITUS, Problem 05/31/2020 MEDGEN (St unspecified UNSPECIFIED 12:00:00 AM [facility], ) L29.9 Pruritus, PRURITUS, Problem 05/31/2020 MEDGEN (St unspecified UNSPECIFIED 12:00:00 AM [facility], ) L29.9 Pruritus, PRURITUS, Problem 05/31/2020 MEDGEN (St unspecified UNSPECIFIED 12:00:00 AM [facility], ) F32.9 Major depressive MAJOR DEPRESSIVE Problem [...] HEART 12:00:00 AM Juan C's failure FAILURE T [facility], ) I50.32 Chronic diastolic CHRONIC DIASTOLIC Problem 03/24/2020 MEDGEN (St (congestive) heart (CONGESTIVE) HEART 12:00:00 AM Juan C's failure FAILURE T [facility], ) I50.32 Chronic diastolic CHRONIC DIASTOLIC Problem 03/24/2020 MEDGEN (St (congestive) heart (CONGESTIVE) HEART 12:00:00 AM Juan C's failure FAILURE T [facility], ) I50.32 Chronic diastolic CHRONIC DIASTOLIC Problem 03/24/2020 MEDGEN (St (congestive) heart (CONGESTIVE) HEART 12:00:00 AM Juan C's failure FAILURE T [facility], ) I50.32 Chronic diastolic CHRONIC DIASTOLIC Problem 03/24/2020 MEDGEN (St (congestive) heart (CONGESTIVE) HEART 12:00:00 AM Juan C's failure FAILURE T [facility], ) I50.32 Chronic diastolic CHRONIC DIASTOLIC Problem 03/24/2020 MEDGEN (St (congestive) heart (CONGESTIVE) HEART 12:00:00 AM Juan C's failure FAILURE T Medical, ) I50.32 Chronic diastolic CHRONIC DIASTOLIC Problem 03/24/2020 MEDGEN (St (congestive) heart (CONGESTIVE) HEART 12:00:00 AM Juan C's failure FAILURE T Medical, ) I50.32 Chronic diastolic CHRONIC DIASTOLIC Problem 03/24/2020 MEDGEN (St (congestive) heart (CONGESTIVE) HEART 12:00:00 AM Juan C's failure FAILURE T Medical, ) I50.32 Chronic diastolic CHRONIC DIASTOLIC Problem 03/24/2020 MEDGEN (St (congestive) heart (CONGESTIVE) HEART 12:00:00 AM Juan C's failure FAILURE T Medical, ) I50.32 Chronic diastolic CHRONIC DIASTOLIC Problem 03/24/2020 MEDGEN (St (congestive) heart (CONGESTIVE) HEART 12:00:00 AM Juan C's failure FAILURE T Medical, ) I50.32 Chronic diastolic CHRONIC DIASTOLIC Problem 03/24/2020 MEDGEN (St (congestive) heart (CONGESTIVE) HEART 12:00:00 AM Juan C's failure FAILURE T [facility], ) R53.81 Other malaise OTHER MALAISE Problem 03/22/2020 MEDGEN ( St 12:00:00 AM [facility]'s EDT [facility], ) R53.81 Other malaise OTHER MALAISE Problem 03/22/2020 MEDGEN ( St 12:00:00 AM [facility], ) R53.81 Other malaise OTHER MALAISE Problem 03/22/2020 MEDGEN ( St 12:00:00 AM [facility], ) R53.81 Other malaise OTHER MALAISE Problem 03/22/2020 MEDGEN ( St 12:00:00 AM [facility] R53.81 Other malaise OTHER MALAISE Problem 03/22/2020 MEDGEN ( St 12:00:00 AM [facility], ) R53.81 Other malaise OTHER MALAISE Problem 03/22/2020 MEDGEN ( St 12:00:00 AM [facility], ) R53.81 Other malaise OTHER MALAISE Problem 03/22/2020 MEDGEN ( St 12:00:00 AM [facility], ) R53.81 Other malaise OTHER MALAISE Problem 03/22/2020 MEDGEN ( St 12:00:00 AM [facility] ) R53.81 Other malaise OTHER MALAISE Problem 03/22/2020 MEDGEN ( St 12:00:00 AM [facility], ) R53.81 Other malaise OTHER MALAISE Problem 03/22/2020 MEDGEN ( St 12:00:00 AM [facility], ) R53.81 Other malaise OTHER MALAISE Problem 03/22/2020 MEDGEN ( St 12:00:00 AM 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 Problem 12/15/2019 MEDGEN (St 12:00:00 AM [facility], ) 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 Problem 12/15/2019 MEDGEN (St 12:00:00 AM [facility], ) 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 Problem 12/15/2019 MEDGEN (St 12:00:00 AM [facility] [place]) 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 Problem 12/15/2019 MEDGEN (St 12:00:00 AM [facility], ) 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 Problem 12/15/2019 MEDGEN (St 12:00:00 AM [facility] [place]) 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 Problem 12/15/2019 MEDGEN (St 12:00:00 AM [facility], ) 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 Problem 12/15/2019 MEDGEN (St 12:00:00 AM [facility] [place]) 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 Problem 12/15/2019 MEDGEN (St 12:00:00 AM [facility], ) 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 Problem 12/15/2019 MEDGEN (St 12:00:00 AM [facility] [place]) 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 Problem 12/15/2019 MEDGEN (St 12:00:00 AM [facility], ) 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 09/22/2019 [place] DGEN (St ulcer of unspecified CHRONIC ULCER OF 12:00:00 AM Juan C's heel and midfoot UNSPECIFIED HEEL EST Vt dical, ) with unspecified AND MIDFOOT WITH severity UNSPECIFIED SEVERITY E88.09 Other disorders of OTHER DISORDERS OF Problem 9 MEDGEN (St plasma-protein PLASMA-PROTEIN 12:00:00 AM Juan C' s metabolism, not METABOLISM, NOT EST [facility], ) elsewhere classified ELSEWHERE CLASSIFIED D72.829 Elevated white blood ELEVATED WHITE Problem 09/22/2019 MEDGEN (St cell count, BLOOD CELL COUNT, 12:00:00 AM Juan C' s unspecified UNSPECIFIED EST Medical, ) D64.9 Anemia, unspecified ANEMIA, Problem 09/22/2019 MEDGE N (St UNSPECIFIED 12:00:00 AM [facility]'s [facility], ) R21 Rash and other RASH AND [...] C's heel and midfoot UNSPECIFIED HEEL EST Vt dical, ) with unspecified AND MIDFOOT WITH severity [...] N (St UNSPECIFIED 12:00:00 AM Juan C's [facility], ) R21 Rash and other RASH [...] C's heel and midfoot UNSPECIFIED HEEL EST Vt dical, ) with unspecified AND MIDFOOT WITH severity [...] C's heel and midfoot UNSPECIFIED HEEL EST Vt dical, PC) with unspecified AND MIDFOOT WITH severity UNSPECIFIED SEVERITY E88.09 Other disorders of OTHER DISORDERS OF Problem 9 MEDGEN (St plasma-protein PLASMA-PROTEIN 12:00:00 AM Juan C' s metabolism, not METABOLISM, NOT EST [facility], ) elsewhere classified ELSEWHERE CLASSIFIED D72.829 Elevated [...] C's heel and midfoot UNSPECIFIED HEEL EST Vt dical, PC) with unspecified AND MIDFOOT WITH [...] C's heel and midfoot UNSPECIFIED HEEL EST [facility], ) with unspecified AND MIDFOOT WITH [...] C's heel and midfoot UNSPECIFIED HEEL EST Vt dical, PC) with unspecified AND MIDFOOT WITH [...] C's heel and midfoot UNSPECIFIED HEEL EST Vt dical, PC) with unspecified AND MIDFOOT WITH [...] C's heel and midfoot UNSPECIFIED HEEL EST Vt dical, ) with unspecified AND MIDFOOT WITH severity [...] N (St UNSPECIFIED 12:00:00 AM Juan C's [facility] Medical, ) R21 Rash and other RASH [...] C's heel and midfoot UNSPECIFIED HEEL EST Vt dical, ) with unspecified AND MIDFOOT WITH severity [...] C's heel and midfoot UNSPECIFIED HEEL EST Vt dicla, ) with unspecified AND MIDFOOT WITH severity [...] N (St UNSPECIFIED 12:00:00 AM Juan C's [facility] Medical, ) R21 Rash and other RASH [...] C's heel and midfoot UNSPECIFIED HEEL EST Vt dical, ) with unspecified AND MIDFOOT WITH severity [...] MEDGEN (St disease, unspecified DISEASE, 12:00:00 AM [facility] UNSPECIFIED EST Medical, PC) I16.9 Hypertensive [...] PC) 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 08/27/2019 [place] DGEN (St ulcer of other part CHRONIC [...] 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 I51.7 Cardiomegaly I51.7 Diagnosis 05/02/2020 [facility] 10:37:00 AM Hospital EDT C90.00 Multiple myeloma not C90.00 Diagnosis 05/02/2020 [facility] having achieved 10:37:00 AM Hospital remission EDT N20.0 Calculus of kidney N20.0 Diagnosis 05/02/2020 [facility] 10:37:00 AM Hospital EDT 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.02 Diagnosis 05/02/2020 [facility] renal cysts 10:37:00 AM Hospital EDT R59.0 Localized enlarged R59.0 Diagnosis 05/02/2020 [facility] lymph nodes 10:37:00 AM Hospital EDT Surgeries/Procedures Procedure Description Date Indications Data Source(s) Documentation of current 2020 MED GEN ([facility] medications (procedure) 12:00:00 AM EDT [facility] Jaffe) OFFICE OUTPATIENT VISIT 2020 MEDG EN ([facility] 15 MINUTES 12:00:00 AM EDT Medical, ) Documentation of current 06/14/2020 MED GEN ([facility] medications (procedure) 12:00:00 AM EDT [facility] PC) Documentation of current 06/14/2020 MED GEN ([facility] medications (procedure) 12:00:00 AM EDT [facility]) Documentation of current 06/14/2020 MED GEN ([facility] medications (procedure) 12:00:00 AM EDT [facility]) OFFICE OUTPATIENT VISIT 06/14/2020 MEDG EN ([facility] 15 MINUTES 12:00:00 AM EDT [facility], PC) Documentation of current 06/14/2020 MED GEN (Buck's medications (procedure) 12:00:00 AM EDT [facility] PC) Documentation of current 06/14/2020 MED GEN (Buck's medications (procedure) 12:00:00 AM EDT [facility] PC) Documentation of current 06/14/2020 MED GEN (Buck's medications (procedure) 12:00:00 AM EDT [facility] PC) OFFICE OUTPATIENT VISIT 06/14/2020 MEDG EN ([facility] 15 MINUTES 12:00:00 AM EDT [facility], PC) Documentation of current 05/31/2020 MED GEN (Buck's medications (procedure) 12:00:00 AM EDT [facility] PC) Documentation of current 05/31/2020 MED GEN ([facility]'s medications (procedure) 12:00:00 AM EDT [facility] PC) Documentation of current 05/31/2020 MED GEN (Buck's medications (procedure) 12:00:00 AM EDT [facility] PC) OFFICE OUTPATIENT VISIT 05/31/2020 MEDG EN ([facility] 15 MINUTES 12:00:00 AM EDT [facility], PC) Documentation of current 05/31/2020 MED GEN (Buck's medications (procedure) 12:00:00 AM EDT [facility], ) OFFICE OUTPATIENT VISIT 05/31/2020 MEDG EN ([facility] 15 MINUTES 12:00:00 AM EDT Medical, ) OFFICE OUTPATIENT VISIT 05/31/2020 MEDG EN [facility] Documentation of current 05/31/2020 MED GEN (Buck's medications (procedure) 12:00:00 AM EDT [facility], ) Documentation of current 05/31/2020 MED GEN (Buck's medications (procedure) 12:00:00 AM EDT [facility], ) Documentation of current 05/31/2020 MED GEN (Buck's medications (procedure) 12:00:00 AM EDT [facility], ) OFFICE OUTPATIENT VISIT 05/31/2020 MEDG EN ([facility] 15 MINUTES 12:00:00 AM EDT Medical, ) OFFICE OUTPATIENT VISIT 05/10/2020 MEDG EN ([facility] OFFICE OUTPATIENT VISIT 05/10/2020 MEDG EN ([facility] 15 MINUTES 12:00:00 AM EDT Medical, ) OFFICE OUTPATIENT VISIT 05/10/2020 MEDG EN ([facility] 15 MINUTES 12:00:00 AM ED Medical, ) OFFICE OUTPATIENT VISIT 05/10/2020 MEDG EN ([facility] 15 MINUTES 12:00:00 AM EDT Medical, ) OFFICE OUTPATIENT VISIT 05/05/2020 MEDG EN ([facility] 15 MINUTES 12:00:00 AM ED Medical, ) COLLECTION VENOUS BLOOD 05/05/2020 MEDG EN ([facility] VENIPUNCTURE 12:00:00 AM EDT Medical, ) OFFICE OUTPATIENT VISIT 05/05/2020 MEDG EN ([facility] 15 MINUTES 12:00:00 AM EDT Medical, ) COLLECTION VENOUS BLOOD 05/05/2020 MEDG EN ([facility] VENIPUNCTURE 12:00:00 AM EDT Medical, ) OFFICE OUTPATIENT VISIT 05/05/2020 MEDG EN ([facility] 15 MINUTES 12:00:00 AM EDT Medical, ) COLLECTION VENOUS BLOOD 05/05/2020 MEDG EN ([facility] VENIPUNCTURE 12:00:00 AM EDT [facility], ) OFFICE OUTPATIENT VISIT 05/05/2020 MEDG EN ([facility] 15 MINUTES 12:00:00 AM EDT Medical, PC) COLLECTION VENOUS BLOOD 05/05/2020 MEDG EN ([facility] VENIPUNCTURE 12:00:00 AM EDT Medical, ) OFFICE OUTPATIENT VISIT 05/05/2020 MEDG EN ([facility] 15 MINUTES 12:00:00 AM EDT [facility], ) COLLECTION VENOUS BLOOD 05/05/2020 MEDG EN ([facility]'s VENIPUNCTURE 12:00:00 AM EDT [facility], ) Documentation of current 05/03/2020 MED GEN [...] MEDG EN ([facility] 15 MINUTES 12:00:00 AM [facility], PC) Documentation of current 05/03/2020 MED GEN (Buck's medications (procedure) 12:00:00 AM EDT stefan, SAMPSON) Documentation of current 05/03/2020 MED GEN [...] GEN ([facility]'s medications (procedure) 12:00:00 AM EDT [facility], ) Documentation of current 05/03/2020 MED GEN (Buck's medications (procedure) 12:00:00 AM EDT stefan, ) Documentation of current 05/03/2020 MED GEN (Buck's medications (procedure) 12:00:00 AM EDT [facility], ) Documentation of current 05/03/2020 MED GEN (Buck[facility] medications (procedure) 12:00:00 [facility] Documentation of current 05/03/2020 MED GEN (Buck's medications (procedure) 12:00:00 AM EDT [facility], ) Documentation of current 05/03/2020 MED GEN (Buck's medications (procedure) 12:00:00 AM EDT [facility], ) Documentation of current 04/26/2020 MED GEN (Buck's medications (procedure) 12:00:00 AM EDT [facility], ) OFFICE OUTPATIENT VISIT 04/26/2020 MEDG EN ([facility] 15 MINUTES 12:00:00 AM ED Medical, ) COLLECTION VENOUS BLOOD 04/26/2020 MEDG EN ([facility] VENIPUNCTURE 12:00:00 AM [facility] Medical, ) Documentation of current 04/26/2020 MED GEN (Buck's medications (procedure) 12:00:00 AM [facility], ) OFFICE OUTPATIENT VISIT 04/26/2020 MEDG EN ([facility] 15 MINUTES 12:00:00 AM [facility] Medical, ) COLLECTION VENOUS BLOOD 04/26/2020 MEDG EN ([facility] Documentation of current 04/26/2020 MED GEN (Buck's medications (procedure) 12:00:00 AM EDT [facility], ) OFFICE OUTPATIENT VISIT 04/26/2020 MEDG EN ([facility] 15 MINUTES 12:00:00 AM ED Medical, ) COLLECTION VENOUS BLOOD 04/26/2020 MEDG EN ([facility]'s VENIPUNCTURE 12:00:00 AM [facility], ) Documentation of current 04/26/2020 MED GEN (Buck's medications (procedure) 12:00:00 AM [facility], ) OFFICE OUTPATIENT VISIT 04/26/2020 MEDG EN ([facility] 15 MINUTES 12:00:00 AM EDT [facility], ) COLLECTION VENOUS BLOOD 04/26/2020 MEDG EN ([facility] Documentation of current 04/26/2020 MED GEN (Buck's medications (procedure) 12:00:[address] [facility]) OFFICE OUTPATIENT VISIT 04/26/2020 MEDG EN [facility]ENOUS BLOOD 04/26/2020 MEDG EN ([facility] Documentation of current 04/26/2020 MED GEN (Buck's medications (procedure) 12:00:[address] [facility]) OFFICE OUTPATIENT VISIT 04/26/2020 MEDG EN (Buck's 15 MINUTES 12:00:00 AM [facility], ) COLLECTION VENOUS BLOOD 04/26/2020 MEDG EN ([facility] Documentation of current 04/26/2020 MED GEN (Buck's medications (procedure) 12:00:[address] [facility]) OFFICE OUTPATIENT VISIT 04/26/2020 MEDG EN ([facility] COLLECTION VENOUS BLOOD 04/26/2020 MEDG EN ([facility]URE [facility] OFFICE OUTPATIENT VISIT 04/19/2020 MEDG EN (Buck's 25 MINUTES 12:00:00 AM EDT [facility], ) OFFICE OUTPATIENT VISIT 04/19/2020 MEDG EN ([facility] 25 MIN[facility]ES [facility] OFFICE OUTPATIENT VISIT 04/19/2020 MEDG EN ([facility] 25 MINUTES 12:00:[facility] OFFICE OUTPATIENT VISIT 04/19/2020 MEDG EN ([facility] 25 MINUTES 12:00:[facility] OFFICE OUTPATIENT VISIT 04/19/2020 MEDG EN ([facility] 25 MINUTES 12:00:[facility] OFFICE OUTPATIENT VISIT 04/19/2020 MEDG EN (Buck's 25 MINUTES 12:00:00 AM EDT Medical, PC) OFFICE OUTPATIENT VISIT 04/19/2020 MEDG EN (Buck's 25 MINUTES 12:00:00 AM EDT Medical, PC) OFFICE OUTPATIENT VISIT 04/19/2020 MEDG EN (Buck's 25 MINUTES 12:00:00 AM EDT Medical, PC) Documentation [...] medications (procedure) 12:00:00 AM EDT stefan, SAMPSON) OFFICE OUTPATIENT VISIT 03/24/2020 MEDG EN (Buck's [...] AM EDT Medical, PC) OFFICE OUTPATIENT VISIT 03/24/2020 MEDG EN [...] MEDG EN (Buck's 15 MINUTES 12:00:00 AM [facility], [facility]) Documentation of current 03/24/2020 MED [...] AM EDT [facility], [facility]) OFFICE OUTPATIENT VISIT 03/24/2020 MEDG EN [...] PC) Documentation of current 03/24/2020 MED GEN (Bcuk's medications (procedure) 12:00:00 AM EDT stefan, PC) Documentation of current 03/24/2020 MED GEN (Buck's medications (procedure) 12:00:00 AM EDT stefan, PC) Documentation of current 03/24/2020 MED GEN (Buck's medications (procedure) 12:00:00 AM EDT stefan, PC) Documentation of current 03/24/2020 MED GEN (Bcuk's medications (procedure) 12:00:00 AM [...] AM EDT [facility], PC) OFFICE OUTPATIENT VISIT 03/24/2020 MEDG EN [...] AM EDT [facility], PC) OFFICE OUTPATIENT VISIT 03/24/2020 MEDG EN ([facility]'s 15 MINUTES 12:00:00 AM EDT Medical, PC) Documentation of current 03/24/2020 MED GEN (Buck's medications (procedure) 12:00:00 AM EDT [facility], [facility]) Documentation of current 03/24/2020 MED GEN (Buck's medications (procedure) 12:00:00 AM EDT edical, PC) OFFICE OUTPATIENT VISIT 03/24/2020 MEDG EN [...] MEDG EN ([facility] 25 MINUTES [facility] COLLECTION VENOUS BLOOD 03/22/2020 MEDG EN (Buck's VENIPUNCTURE 12:00:00 AM [facility], ) Documentation of current 03/22/2020 MED GEN [...] AM EDT stefan ) OFFICE OUTPATIENT VISIT 03/22/2020 MEDG EN (Buck's 25 MINUTES 12:00:00 AM [facility], PC) COLLECTION VENOUS BLOOD 03/22/2020 MEDG EN (Buck's VENIPUNCTURE 12:00:00 AM [facility], [facility]) Documentation of current 03/22/2020 MED GEN (Buck's medications (procedure) 12:00:00 AM EDT stefan, PC) Documentation of current 03/22/2020 MED GEN (Buck's medications (procedure) 12:00:00 AM EDT stefan, PC) Documentation of current 03/22/2020 MED GEN (Buck's medications (procedure) 12:00:00 AM EDT M stefan, PC) Documentation of current 03/22/2020 MED GEN (Buck's medications (procedure) 12:00:00 AM EDT M stefan, PC) Documentation of current 03/22/2020 MED [...] (Buck's medications (procedure) 12:00:00 AM EDT M stefan, PC) Documentation of current 03/22/2020 MED [...] MEDG EN (Buck's 25 MINUTES 12:00:00 AM ED Medical, PC) COLLECTION VENOUS BLOOD 03/22/2020 MEDG EN (Buck's VENIPUNCTURE 12:00:00 AM [facility], PC) Documentation of current 03/22/2020 MED GEN (Buck's medications (procedure) 12:00:00 AM EDT stefan, SAMPSON) Documentation of current 03/22/2020 MED GEN (Buck's [...] MEDG EN (Buck's 25 MINUTES 12:00:00 AM [facility], ) COLLECTION VENOUS BLOOD 03/22/2020 MEDG EN (Buck's VENIPUNCTURE 12:00:00 AM [facility], ) Documentation of current 03/22/2020 MED GEN [...] MEDG EN (Buck's VENIPUNCTURE 12:00:00 AM T Medical, ) Documentation of current 03/22/2020 MED GEN [...] 03/22/2020 MEDG EN (Buck's VENIPUNCTURE 12:00:00 AM ED Medical, ) Documentation of current 03/22/2020 MED GEN [...] medications (procedure) 12:00:00 AM EDT stefan, SAMPSON) OFFICE OUTPATIENT VISIT 03/22/2020 MEDG EN (Buck's 25 MINUTES 12:00:00 AM [facility], ) COLLECTION VENOUS BLOOD 03/22/2020 MEDG EN (Buck's VENIPUNCTURE 12:00:00 AM [facility], ) Documentation of current 03/22/2020 MED GEN [...] MEDG EN (Buck's 25 MINUTES 12:00:00 AM [facility] Medical, ) COLLECTION VENOUS BLOOD 03/22/2020 MEDG EN (Buck's VENIPUNCTURE 12:00:00 AM [facility], ) Documentation of current 03/22/2020 MED GEN [...] MEDG EN (Buck's 25 MINUTES 12:00:00 AM [facility], ) COLLECTION VENOUS BLOOD 03/22/2020 MEDG EN (Buck's VENIPUNCTURE 12:00:00 AM [facility], ) Documentation of current 03/22/2020 MED GEN (Buck's medications (procedure) 12:00:00 AM EDT stefan, SAMPSON) Documentation of current 03/22/2020 MED GEN (Buck's [...] 03/22/2020 MEDG EN (Buck's VENIPUNCTURE 12:00:00 AM [facility], PC) Documentation of current 03/22/2020 MED GEN [...] AM EDT SAMPSON aviles) Documentation of current 02/16/2020 MED GEN (Buck's medications (procedure) 12:00:00 AM EDT SAM[facility]ON aviles) Documentation of current 02/16/2020 MED GEN (Buck's medications (procedure) 12:00:00 AM EDT SAM[facility]ON aviles) Documentation of current 02/16/2020 MED GEN (Buck's medications (procedure) 12:00:00 AM EDT SAM[place]ON aviles) Documentation of current 02/16/2020 MED GEN (Buck's medications (procedure) 12:00:00 AM EDT SAMPSON aviles) Documentation of current 02/16/2020 MED GEN (Buck's medications (procedure) 12:00:00 AM EDT SAM[facility]ON aviles) Documentation of current 02/16/2020 MED GEN (Buck's medications (procedure) 12:00:00 AM EDT SAMPSON aviles) PHYSICIAN TELEPHONE 02/16/2020 MEDGEN ( Buck's EVALUATION 21-30 MIN 12:00:00 AM EDT SAMPSON Mortensen) Documentation of current 02/16/2020 MED GEN (Buck's medications (procedure) 12:00:00 AM EDT SAMPSON aviles) Documentation of current 02/16/2020 MED GEN (Buck's medications (procedure) 12:00:00 AM EDT SAMPSON aviles) Documentation of current 02/16/2020 MED GEN (Buck's medications (procedure) 12:00:00 AM EDT SAMPSON aviles) Documentation of current 02/16/2020 MED GEN (Buck's [...] PC) Documentation of current 02/16/2020 MED GEN (Bukc's medications (procedure) 12:00:00 AM EDT stefan, PC) [...] 21-30 MIN 12:00:00 AM EDT Cathi wray PC) Documentation of current 02/16/2020 MED GEN (Buck's medications (procedure) 12:00:00 AM EDT SAMPSON aviles) Documentation of current 02/16/2020 MED GEN (Buck's [...] 21-30 MIN 12:00:00 AM EDT Cathi wray, PC) Documentation of current 02/16/2020 MED GEN [...] 21-30 MIN 12:00:00 AM EDT Cathi wray, PC) Documentation of current 02/16/2020 MED GEN (Buck's medications (procedure) 12:00:00 AM EDT stefan, PC) Documentation of current 02/16/2020 MED GEN (Buck's medications (procedure) 12:00:00 AM EDT [facility], PC) Documentation of current 02/16/2020 MED GEN (Buck's medications (procedure) 12:00:00 AM EDT [facility], PC) Documentation of current 02/16/2020 MED GEN (Buck's medications (procedure) 12:00:00 AM EDT stefan, PC) Documentation of current 02/16/2020 MED GEN (Buck's medications (procedure) 12:00:00 AM EDT stefan, PC) Documentation of current 02/16/2020 MED GEN (Buck's medications (procedure) 12:00:00 AM EDT stefan, PC) PHYSICIAN TELEPHONE 02/16/2020 MEDGEN ( Buck's EVALUATION 21-30 MIN 12:00:00 AM EDT [facility], ) Documentation of current 02/16/2020 MED GEN [...] Buck's EVALUATION 21-30 MIN 12:00:00 AM EDT [facility] nils, ) Documentation of current 02/16/2020 MED GEN (Buck's medications (procedure) 12:00:00 AM EDT stefan, PC) Documentation of current 02/16/2020 MED GEN (Buck's medications (procedure) 12:00:00 AM EDT marcelical, ) Documentation of current 02/16/2020 MED GEN (Buck's medications (procedure) 12:00:00 AM EDT marcelical, ) Documentation of current 02/16/2020 MED GEN ([facility] medications (procedure) 12:00:00 [facility] Documentation of current 02/16/2020 MED GEN (Buck's medications (procedure) 12:00:00 AM EDT [facility] Documentation of current 02/16/2020 MED GEN (Buck's medications (procedure) 12:00:00 AM EDT [facility] PHYSICIAN TELEPHONE 02/16/2020 MEDGEN ( Buck's EVALUATION 21-30 MIN 12:00:00 AM EDT [facility], ) Documentation of current 02/16/2020 MED GEN (Buck's medications (procedure) 12:00:00 AM EDT marcelical, ) Documentation of current 02/16/2020 MED GEN ([facility] medications (procedure) 12:00:00 AM ED[facility] Documentation of current 02/16/2020 MED GEN ([facility] medications (procedure) 12:00:00 AM EDT [facility] Documentation of current 02/16/2020 MED GEN ([facility] medications (procedure) 12:00:00 AM ED[facility] Documentation of current 02/16/2020 MED GEN (Buck's medications (procedure) 12:00:00 AM EDT [facility], ) Documentation of current 02/16/2020 MED GEN (Buck's medications (procedure) 12:00:00 AM EDT [facility], ) PHYSICIAN TELEPHONE 02/16/2020 MEDGEN ( Buck's EVALUATION 21-30 MIN 12:00:00 AM EDT [facility], ) OFFICE OUTPATIENT VISIT 12/15/2019 MEDG EN (Buck's 15 MINUTES 12:00:00 AM ED Medical, ) OFFICE OUTPATIENT VISIT 12/15/2019 MEDG EN (Buck's 15 MINUTES 12:00:00 AM ED Medical, ) OFFICE OUTPATIENT VISIT 12/15/2019 MEDG EN ([facility] OFFICE OUTPATIENT VISIT 12/15/2019 MEDG EN (Buck's 15 MINUTES 12:00:00 AM EDT Medical, ) OFFICE OUTPATIENT VISIT 12/15/2019 MEDG EN (Buck's 15 MINUTES 12:00:00 AM EDT Medical, ) OFFICE OUTPATIENT VISIT 12/15/2019 MEDG EN (Bcuk's 15 MINUTES 12:00:00 AM EDT [facility], ) OFFICE OUTPATIENT VISIT 12/15/2019 MEDG EN (Buck's 15 MINUTES 12:00:00 AM EDT Medical, ) OFFICE OUTPATIENT VISIT 12/15/2019 MEDG EN (Buck's 15 MINUTES 12:00:00 AM EDT Medical, ) OFFICE OUTPATIENT VISIT 12/15/2019 MEDG EN (Buck's 15 MINUTES 12:00:00 AM EDT [facility], ) OFFICE OUTPATIENT VISIT 12/15/2019 MEDG EN (Buck's 15 MINUTES 12:00:00 AM EDT Medical, ) OFFICE OUTPATIENT VISIT 12/15/2019 MEDG EN (Buck's 15 MINUTES 12:00:00 AM EDT Medical, ) OFFICE OUTPATIENT VISIT 12/15/2019 MEDG EN (Buck's 15 MINUTES 12:00:00 AM EDT Medical, ) Documentation of current 11/17/2019 MED GEN (Buck's [...] PC) Documentation of current 11/17/2019 MED GEN (Ubck's medications (procedure) 12:00:00 AM SAMPSON Cevallos) Documentation [...] GEN (Buck's medications (procedure) 12:00:00 AM MARILOU avilse, SAMPSON) Documentation of current 11/17/2019 MED GEN [...] MEDG EN (Buck's 25 MINUTES 12:00:00 AM ASMPSON Lobo) COLLECTION VENOUS BLOOD 11/17/2019 MEDG EN [...] (Buck's medications (procedure) 12:00:00 AM EST Max rodical, ) Documentation of current 11/17/2019 MED GEN (Buck's medications (procedure) 12:00:00 AM EST Max rodical, ) Documentation of current 11/17/2019 MED GEN (Buck's medications (procedure) 12:00:00 AM [facility] Documentation of current 11/17/2019 MED GEN (Buck's medications (procedure) 12:00:00 AM EST Max aviles, PC) Documentation of current 11/17/2019 MED GEN (Buck's medications (procedure) 12:00:00 AM [facility] Documentation of current 11/17/2019 MED GEN (Buck's medications (procedure) 12:00:00 AM EST [facility] OFFICE OUTPATIENT VISIT 11/17/2019 MEDG EN (Buck's 25 MINUTES 12:00:00 AM EST Medical, PC) COLLECTION VENOUS BLOOD 11/17/2019 MEDG EN [...] MEDG EN (Buck's 15 MINUTES 12:00:00 AM MARILOU Medical, PC) Documentation of [...] MEDG EN (Buck's VENIPUNCTURE 12:00:00 AM MARILOU Galindo PC) Documentation of current 09/22/2019 MED GEN [...] MEDG EN (Buck's VENIPUNCTURE 12:00:00 AM MARILOU Galindo PC) Documentation of current 09/22/2019 MED GEN [...] MEDG EN (Buck's VENIPUNCTURE 12:00:00 AM MARILOU Galindo PC) Documentation of current 09/22/2019 MED GEN (Bukc's medications (procedure) 12:00:00 AM MARILOU aviles, PC) [...] PC) Documentation of current 09/01/2019 MED GEN (Bcuk's medications (procedure) 12:00:00 AM MARILOU aviles, SAMPSON) [...] (Buck's medications (procedure) 12:00:00 AM MARILOU aviles, ) Results ID Date Data Source [id number] 05/01/2020 12:00:00 AM EDT [facility] ([facility], ) Name Value Range Interpretation Code Description Data Supporting Source(s) Document(s ) Ferritin, 191 ng/mL Normal (applies to MEDGEN (St Serum non-numeric Juan C's results) Medical, ) ID Date Data Source [id number] 05/01/2020 12:00:00 AM EDT [facility] ([facility], ) Name Value Range Interpretation Description Data Sup porting Code Source(s) Document(s ) Deprecated 2.4 mg/dL Below low normal MEDGEN (St Phosphorus Juan C's [Mass/time] in Medical, ) 24 hour Urine ID Date Data Source [id number] 05/01/2020 12:00:00 AM EDT [facility]GEN ([facility], ) Name Value Range Interpretation Description Data Sup porting Code Source(s) Document(s ) Vitamin D, 29.4 Below low normal MEDGEN (St 25-Hydroxy ng/mL [facility], ) ID Date Data Source [id number] 05/01/2020 12:00:00 AM EDT [facility] ([facility], ) Name Value Range Interpretation Code Description Data Supporting Source(s) Document(s ) Creatinine 77.9 mg/dL Normal (applies to MEDGEN (S t , Urine non-numeric Juan C's results) [facility], ) Protein,To 227.0 Normal (applies to MEDGEN (St ruth,Urine mg/dL non-numeric Juan C's results) [facility], ) Protein/Cr 2914 mg/g Above high normal MEDGEN (St eat Ratio creat [facility], ) ID Date Data Source [id number] 05/01/2020 12:00:00 AM EDT [facility], ) Name Value Range Interpretation Description Data Sup porting Code Source(s) Document(s ) Iron 270 ug/dL Normal (applies to MEDGEN (St Bind.Cap.(TIBC non-numeric Juan C's ) results) [facility], ) UIBC 231 ug/dL Normal (applies to MEDGEN (St non-numeric Juan C's results) [facility], ) Iron 39 ug/dL Normal (applies to MEDGEN (St [Mass/volume] non-numeric Juan C's in Serum or results) [facility], ) Plasma Iron 14 % Below low normal MEDGEN (St saturation Juan C's [Mass [facility], ) Fraction] in Serum or Plasma ID Date Data Source [id number] 05/01/2020 12:00:00 AM EDT [facility], ) Name Value Range Interpretation Description Data Sup porting Code Source(s) Document(s ) Specific gravity 1.015 Normal (applies MEDGEN (St of Pericardial to non-numeric Juan C's fluid by results) [facility] pH of Lower 7.0 Normal (applies MEDGEN (St respiratory to non-numeric Juan C's specimen results) [facility], ) Urine-Color Yellow Normal (applies MEDGEN [...] Medical, for unspecified PC) duration Occult Blood Abnormal [...] results) Medical, ) ID Date Data Source [id number] 05/01/2020 12:00:00 AM EDT [facility] ([facility], ) Name Value Range Interpretation Description Data Sup porting Code Source(s) Document(s ) RBC 3-10 Abnormal (applies MEDGEN (St to non-numeric Juan C's results) Medical, PC) WBC 0-5 Normal (applies MEDGEN (St to non-numeric Juan C's results) Medical, ) Epithelial 0-10 Normal (applies MEDGEN (St Cells (non to non-numeric Juan C's renal) results) Medical, ) Mucus Threads Present Normal (applies MEDGEN (St to non-numeric Juan C's results) Medical, PC) Bacteria None seen Normal (applies MEDGEN (St [Presence] in to non-numeric Juan C's Prostatic results) Medical, ) fluid by Light microscopy ID Date Data Source [id number] 05/01/2020 12:00:00 AM EDT [facility] ([facility], ) Name Value Range Interpretation Description Data Sup porting Code Source(s) Document(s ) Glucose 90 mg/dL Normal (applies MEDGEN (St [Mass/volume] in to non-numeric Juan C's Urine collected for results) Medical, unspecified ) duration Urea nitrogen 37 mg/dL Above high MEDGEN (St [Mass/volume] in normal Juan C's Serum or Plasma [facility], ) Creatinine 4.28 Above high MEDGEN (St [Interpretation] in mg/dL normal Juan C's Urine [facility], ) eGFR If NonAfricn 13 Below low normal MEDGE N (St Am mL/min/[address], ) eGFR If Africn Am 15 Below low normal MEDGE N (St mL/min/[address], ) Sodium 138 Normal (applies MEDGEN (St [Moles/volume] in mmol/L to non-numeric Juan C's Serum or Plasma results) [facility], ) BUN/Creatinine 9 Below low normal MEDGEN ( St Ratio [facility], ) Potassium 5.1 Normal (applies MEDGEN (St [Mass/volume] in mmol/L to non-numeric Juan C's Blood results) [facility], ) Chloride 108 Above high MEDGEN (St [Moles/volume] in mmol/L normal Juan C's Serum or Plasma [facility], ) Carbon dioxide, 19 Below low normal MEDGEN (St total mmol/L Juan C's [Moles/volume] in Medical, Serum or Plasma PC) Calcium 7.4 Below low normal MEDGEN (St [Moles/volume] in mg/dL Juan C's Urine collected for Medical, unspecified PC) duration Protein 8.5 g/dL Normal (applies MEDGEN (St [Mass/volume] in to non-numeric Juan C's Serum or Plasma results) [facility], ) Microalbumin 3.8 g/dL Normal (applies MEDGEN (St [Mass/time] in to non-numeric Juan C's Urine collected for results) Medical, unspecified ) duration Globulin, Total 4.7 g/dL Above high MEDGEN (St normal [facility], ) A/G Ratio 0.8 Below low normal MEDGEN ([facility], ) Bilirubin.total 0.4 Normal (applies MEDGEN ( St [Mass/volume] in mg/dL to non-numeric Juan C's Serum or Plasma results) [facility], ) Alkaline 86 IU/L Normal (applies [...] Serum or Plasma ID Date Data Source [id number] 05/01/2020 12:00:00 AM EDT MEDGEN ([facility], ) Name Value Range Interpretation Description Data Sup porting Code Source(s) Document(s ) Leukocytes 13.3 Above high normal MEDGEN (St [#/volume] in x10E3/uL Juan C's Blood by [facility]) Automated count Erythrocytes 2.72 Below lower panic MEDGEN (S t [#/volume] in x10E6/uL limits Juan C's Blood by [facility]) Automated count Hemoglobin 9.1 g/dL Below low normal MEDGEN (St [Mass/volume] in Juan C's Blood [facility], ) Hematocrit 27.8 % Below low normal MEDGEN (St [Volume Juan C's Fraction] of [facility]) Blood by Automated count MCV 102 fL Above high normal MEDGEN ([facility], ) MCH 33.5 pg Above high normal MEDGEN ([facility], ) MCHC 32.7 Normal (applies MEDGEN (St g/dL to non-numeric Juan C's results) [facility]) RDW 18.4 % Above high normal MEDGEN ([facility], ) Platelets 230 Normal (applies MEDGEN (St [#/area] in x10E3/uL to non-numeric Juan C's Blood by results) [facility]) Microscopy high power field Neutrophils [#] 49 % Normal (applies MEDGEN ( St in Body fluid by to non-numeric Juan C's Manual count results) [facility]) Lymphs 33 % Normal (applies MEDGEN (St to non-numeric Juan C's results) [facility]) Monocytes 8 % Normal (applies MEDGEN (St [#/volume] in to non-numeric Juan C's Cord blood results) Medical, ) Eos 4 % Normal (applies MEDGEN (St to non-numeric Juan C's results) [facility], ) Basos 0 % Normal (applies MEDGEN (St to non-numeric Juan C's results) [facility], ) Immature cells Note Normal (applies MEDGEN (S t [#/volume] in to non-numeric Juan C's Blood results) [facility], ) Neutrophils 6.5 Normal (applies MEDGEN (St (Absolute) x10E3/uL to non-numeric Juan C's results) [facility], ) Lymphs 4.4 Above high normal MEDGEN (St (Absolute) x10E3/uL Juan C's [facility], ) Monocytes(Absolu 1.1 Above high normal MEDGE N (St te) x10E3/uL [facility]'s [facility], ) Baso (Absolute) 0.0 Normal (applies MEDGEN ( St x10E3/uL to non-numeric Juan C's results) [facility], ) Eos (Absolute) 0.5 Above high normal MEDGEN (St x10E3/uL Juan C's [facility], ) NRBC 8 % Above high normal MEDGEN ([facility], ) Hematology Note: Normal (applies MEDGEN (St Comments: to non-numeric Juan C's results) [facility], ) ID Date Data Source [id number] 05/01/2020 12:00:00 AM EDT [facility] ([facility], ) Name Value Range Interpretation Description Data Sup porting Code Source(s) Document(s ) Metamyelocytes [#] 2 % Above high normal MED GEN (St in Body fluid by Juan C's Manual count [facility], ) Myelocytes [#] in 4 % Above high normal MEDG EN (St Body fluid by Juan C's Manual count [facility], ) ID Date Data Source [id number] 05/01/2020 12:00:00 AM EDT [facility] ([facility], ) Name Value Range Interpretation Code Description Data Supporting Source(s) Document(s ) Ferritin, 191 ng/mL Normal (applies to MEDGEN (St Serum non-numeric Juan C's results) [facility], ) ID Date Data Source [id number] 05/01/2020 12:00:00 AM EDT [facility] ([facility], ) Name Value Range Interpretation Description Data Sup porting Code Source(s) Document(s ) Deprecated 2.4 mg/dL Below low normal MEDGEN (St Phosphorus Juan C's [Mass/time] in [facility], ) 24 hour Urine ID Date Data Source [id number] 05/01/2020 12:00:00 AM EDT [facility] ([facility]) Name Value Range Interpretation Description Data Sup porting Code Source(s) Document(s ) Vitamin D, 29.4 Below low normal MEDGEN (St 25-Hydroxy ng/mL [facility]) ID Date Data Source [id number] 05/01/2020 12:00:00 AM EDT MEDGEN ([facility], ) Name Value Range Interpretation Code Description Data Supporting Source(s) Document(s ) Creatinine 77.9 mg/dL Normal (applies to MEDGEN (S t , Urine non-numeric Juan C's results) [facility], ) Protein,To 227.0 Normal (applies to MEDGEN (St ruth,Urine mg/dL non-numeric Juan C's results) [facility]) Protein/Cr 2914 mg/g Above high normal MEDGEN (St eat Ratio creat [facility]) ID Date Data Source [id number] 05/01/2020 12:00:00 AM EDT MEDGEN ([facility], ) Name Value Range Interpretation Description Data Sup porting Code Source(s) Document(s ) Iron 270 ug/dL Normal (applies to MEDGEN (St Bind.Cap.(TIBC non-numeric Juan C's ) results) [facility], ) UIBC 231 ug/dL Normal (applies to MEDGEN (St non-numeric Juan C's results) [facility], ) Iron 39 ug/dL Normal (applies to MEDGEN (St [Mass/volume] non-numeric Juan C's in Serum or results) [facility], ) Plasma Iron 14 % Below low normal MEDGEN (St saturation Juan C's [Mass [facility], ) Fraction] in Serum or Plasma ID Date Data Source [id number] 05/01/2020 12:00:00 AM EDT [facility] ([facility]) Name Value Range Interpretation Description Data [...] results) Medical, ) ID Date Data Source [id number] 05/01/2020 12:00:00 AM EDT MEDGEN ([facility] [...] Juan C's results) Medical, PC) Bacteria None seen Normal (applies MEDGEN (St [Presence] in to non-numeric Juan C's Prostatic results) Medical, ) fluid by Light microscopy ID Date Data Source [id number] 05/01/2020 12:00:00 AM EDT [facility], ) Name Value Range Interpretation Description Data Sup porting Code Source(s) Document(s ) Glucose 90 mg/dL Normal (applies MEDGEN (St [Mass/volume] in to non-numeric Juan C's Urine collected for results) Medical, unspecified ) duration Urea nitrogen 37 mg/dL Above high MEDGEN (St [Mass/volume] in normal Juan C's Serum or Plasma [facility], ) Creatinine 4.28 Above high MEDGEN (St [Interpretation] in mg/dL normal Juan C's Urine [facility], ) eGFR If NonAfricn 13 Below low normal MEDGE N (St Am mL/min/1 [facility]'s [address] [place] [address], ) eGFR If Africn Am 15 Below low normal MEDGE N (St mL/min/1 [facility], ) BUN/Creatinine 9 Below low normal MEDGEN ( St Ratio [facility], ) Sodium 138 Normal (applies MEDGEN (St [Moles/volume] in mmol/L to non-numeric Juan C's Serum or Plasma results) [facility], ) Potassium 5.1 Normal (applies MEDGEN (St [Mass/volume] in mmol/L to non-numeric Juan C's Blood results) [facility], ) Chloride 108 Above high MEDGEN (St [Moles/volume] in mmol/L normal Juan C's Serum or Plasma [facility], ) Carbon dioxide, 19 Below low normal MEDGEN (St total mmol/L Juna C's [Moles/volume] in Medical, Serum or Plasma PC) Calcium 7.4 Below low normal MEDGEN (St [Moles/volume] in mg/dL Juan C's Urine collected for Medical, unspecified PC) duration Protein 8.5 g/dL Normal (applies MEDGEN (St [Mass/volume] in to non-numeric Juan C's Serum or Plasma results) [facility], ) Microalbumin 3.8 g/dL Normal (applies MEDGEN (St [Mass/time] in to non-numeric Juan C's Urine collected for results) Medical, unspecified PC) duration Globulin, Total 4.7 g/dL Above high MEDGEN (St normal [facility], ) A/G Ratio 0.8 Below low normal [facility] ([facility]) Bilirubin.total 0.4 Normal (applies MEDGEN ( St [Mass/volume] in mg/dL to non-numeric Juan C's Serum or Plasma results) [facility]) Alkaline 86 IU/L Normal (applies MEDGEN (St [...] Serum or Plasma ID Date Data Source [id number] 05/01/2020 12:00:00 AM EDT MED[facility] ([facility], ) Name Value Range Interpretation Description Data Sup porting Code Source(s) Document(s ) Leukocytes 13.3 Above high normal MEDGEN (St [#/volume] in x10E3/uL Juan C's Blood by [facility]) Automated count Erythrocytes 2.72 Below lower panic MEDGEN (S t [#/volume] in x10E6/uL limits [facility]'s Blood by [facility]) Automated count Hemoglobin 9.1 g/dL Below low normal MEDGEN (St [Mass/volume] in Juan C's Blood [facility]) Hematocrit 27.8 % Below low normal MEDGEN (St [Volume Juan C's Fraction] of [facility]) Blood by Automated count MCV 102 fL Above high normal [facility] ([facility], ) MCH 33.5 pg Above high normal [facility] ([facility]) MCHC 32.7 Normal (applies MEDGEN (St g/dL to non-numeric Juan C's results) [facility]) RDW 18.4 % Above high normal [facility] ([facility]) Platelets 230 Normal (applies MEDGEN (St [#/area] in x10E3/uL to non-numeric Juan C's Blood by results) [facility]) Microscopy high power field Neutrophils [#] 49 % Normal (applies MEDGEN ( St in Body fluid by to non-numeric Juan C's Manual count results) [facility]) Lymphs 33 % Normal (applies [facility]GEN (St to non-numeric Juan C's results) [facility]) Monocytes 8 % Normal (applies MEDGEN (St [#/volume] in to non-numeric Juan C's Cord blood results) [facility]) Eos 4 % Normal (applies MEDGEN (St to non-numeric Juan C's results) [facility]) Basos 0 % Normal (applies [facility]GEN (St to non-numeric Juna C's results) [facility]) Immature cells Note Normal (applies MEDGEN (S t [#/volume] in to non-numeric Juan C's Blood results) [facility]) Neutrophils 6.5 Normal (applies MEDGEN (St (Absolute) x10E3/uL to non-numeric Juan C's results) [facility]) Lymphs 4.4 Above high normal MEDGEN (St (Absolute) x10E3/uL [facility], ) Monocytes(Absolu 1.1 Above high normal MEDGE N (St te) x10E3/uL [facility]'s [facility], ) Eos (Absolute) 0.5 Above high normal [facility] (St x10E3/uL [facility], ) Baso (Absolute) 0.0 Normal (applies MEDGEN ( St x10E3/uL to non-numeric Juan C's results) [facility]) NRBC 8 % Above high normal [facility] ([facility], ) Hematology Note: Normal (applies MEDGEN (St Comments: to non-numeric Juan C's results) [facility]) ID Date Data Source [id number] 05/01/2020 12:00:00 AM EDT [facility] ([facility], ) Name Value Range Interpretation Description Data Sup porting Code Source(s) Document(s ) Metamyelocytes [#] 2 % Above high normal MED GEN (St in Body fluid by Juan C's Manual count [facility], ) Myelocytes [#] in 4 % Above high normal MEDG EN (St Body fluid by Juan C's Manual count [facility], ) ID Date Data Source [id number] 05/01/2020 12:00:00 AM EDT [facility] ([facility], ) Name Value Range Interpretation Code Description Data Supporting Source(s) Document(s ) Ferritin, 191 ng/mL Normal (applies to MEDGEN (St Serum non-numeric Juan C's results) [facility], ) ID Date Data Source [id number] 05/01/2020 12:00:00 AM EDT [facility] ([facility], ) Name Value Range Interpretation Description Data Sup porting Code Source(s) Document(s ) Deprecated 2.4 mg/dL Below low normal MEDGEN (St Phosphorus Juan C's [Mass/time] in Medical, ) 24 hour Urine ID Date Data Source [id number] 05/01/2020 12:00:00 AM EDT [facility] ([facility], ) Name Value Range Interpretation Description Data Sup porting Code Source(s) Document(s ) Vitamin D, 29.4 Below low normal MEDGEN (St 25-Hydroxy ng/mL [facility], ) ID Date Data Source [id number] 05/01/2020 12:00:00 AM EDT [facility] ([facility], ) Name Value Range Interpretation Code Description Data Supporting Source(s) Document(s ) Creatinine 77.9 mg/dL Normal (applies to MEDGEN (S t , Urine non-numeric Juan C's results) Medical, ) Protein,To 227.0 Normal (applies to MEDGEN (St ruth,Urine mg/dL non-numeric Juan C's results) [facility], ) Protein/Cr 2914 mg/g Above high normal MEDGEN (St eat Ratio creat [facility]'s [facility], ) ID Date Data Source [id number] 05/01/2020 12:00:00 AM EDT [facility] ([facility], ) Name Value Range Interpretation Description Data Sup porting Code Source(s) Document(s ) Iron 270 ug/dL Normal (applies to MEDGEN (St Bind.Cap.(TIBC non-numeric Juan C's ) results) Medical, ) UIBC 231 ug/dL Normal (applies to MEDGEN (St non-numeric Juan C's results) [facility], ) Iron 39 ug/dL Normal (applies to MEDGEN (St [Mass/volume] non-numeric Juan C's in Serum or results) Medical, ) Plasma Iron 14 % Below low normal MEDGEN (St saturation Juan C's [Mass Medical, ) Fraction] in Serum or Plasma ID Date Data Source [id number] 05/01/2020 12:00:00 AM EDT MED[facility] ([facility] [...] results) Medical, PC) ID Date Data Source [id number] 05/01/2020 12:00:00 AM EDT MED[facility] ([facility] [...] in to non-numeric Juan C's Prostatic results) [facility], ) fluid by Light microscopy ID Date Data Source [id number] 05/01/2020 12:00:00 AM EDT [facility] ([facility], ) Name Value Range Interpretation Description Data Sup porting Code Source(s) Document(s ) Glucose 90 mg/dL Normal (applies [facility]GEN (St [Mass/volume] in to non-numeric Juan C's Urine collected for results) Medical, unspecified ) duration Urea nitrogen 37 mg/dL Above high MEDGEN (St [Mass/volume] in normal Juan C's Serum or Plasma [facility], ) Creatinine 4.28 Above high MEDGEN (St [Interpretation] in mg/dL normal Juan C's Urine [facility], ) eGFR If NonAfricn 13 Below low normal MEDGE N (St Am mL/min/1 [facility]'s [address] [place] [address], ) eGFR If Africn Am 15 Below low normal MEDGE N (St mL/min/1 [facility]'s .[address] [facility], ) BUN/Creatinine 9 Below low normal MEDGEN ( St Ratio [facility], ) Sodium 138 Normal (applies MEDGEN (St [Moles/volume] in mmol/L to non-numeric Juan C's Serum or Plasma results) [facility], ) Potassium 5.1 Normal (applies MEDGEN (St [Mass/volume] in mmol/L to non-numeric Juan C's Blood results) Medical, ) Chloride 108 Above high MEDGEN (St [Moles/volume] in mmol/L normal Juan C's Serum or Plasma [facility], ) Carbon dioxide, 19 Below low [...] 4.7 g/dL Above high MEDGEN (St normal [facility], ) A/G Ratio 0.8 Below low normal [facility] ([facility], ) Bilirubin.total 0.4 Normal (applies MEDGEN ( St [Mass/volume] in mg/dL to non-numeric Juan C's Serum or Plasma results) [facility], ) Alkaline 86 IU/L Normal (applies [...] Serum or Plasma ID Date Data Source [id number] 05/01/2020 12:00:00 AM EDT MEDGEN ([facility], ) Name Value Range Interpretation Description Data Sup porting Code Source(s) Document(s ) Leukocytes 13.3 Above high normal MEDGEN (St [#/volume] in x10E3/uL Juan C's Blood by [facility], ) Automated count Erythrocytes 2.72 Below lower panic MEDGEN (S t [#/volume] in x10E6/uL limits Juan C's Blood by [facility], ) Automated count Hemoglobin 9.1 g/dL Below low normal MEDGEN (St [Mass/volume] in Juan C's Blood [facility], ) Hematocrit 27.8 % Below low normal [facility]GEN (St [Volume Juan C's Fraction] of [facility], ) Blood by Automated count MCV 102 fL Above high normal [facility] ([facility], ) MCH 33.5 pg Above high normal [facility] ([facility], ) MCHC 32.7 Normal (applies MEDGEN (St g/dL to non-numeric Juan C's results) [facility], ) RDW 18.4 % Above high normal [facility]GEN ([facility], ) Platelets 230 Normal (applies MEDGEN (St [#/area] in x10E3/uL to non-numeric Juan C's Blood by results) [facility], ) Microscopy high power field Neutrophils [#] 49 % Normal (applies MEDGEN ( St in Body fluid by to non-numeric Juan C's Manual count results) [facility], ) Monocytes 8 % Normal (applies MEDGEN (St [#/volume] in to non-numeric Juan C's Cord blood results) [facility]) Lymphs 33 % Normal (applies MEDGEN (St to non-numeric Juan C's results) [facility], ) Eos 4 % Normal (applies MEDGEN (St to non-numeric Juan C's results) [facility], ) Basos 0 % Normal (applies MEDGEN (St to non-numeric Juan C's results) [facility], ) Immature cells Note Normal (applies MEDGEN (S t [#/volume] in to non-numeric Juan C's Blood results) [facility], ) Neutrophils 6.5 Normal (applies MEDGEN (St (Absolute) x10E3/uL to non-numeric Juan C's results) [facility]) Lymphs 4.4 Above high normal MEDGEN (St (Absolute) x10E3/uL [facility], ) Eos (Absolute) 0.5 Above high normal MEDGEN (St x10E3/uL [facility], ) Monocytes(Absolu 1.1 Above high normal MEDGE N (St te) x10E3/uL [facility], ) Baso (Absolute) 0.0 Normal (applies MEDGEN ( St x10E3/uL to non-numeric Juan C's results) [facility], ) NRBC 8 % Above high normal [facility] ([facility], ) Hematology Note: Normal (applies MEDGEN (St Comments: to non-numeric Juan C's results) [facility], ) ID Date Data Source [id number] 05/01/2020 12:00:00 AM EDT [facility] ([facility], ) Name Value Range Interpretation Description Data Sup porting Code Source(s) Document(s ) Metamyelocytes [#] 2 % Above high normal MED GEN (St in Body fluid by Juan C's Manual count [facility], ) Myelocytes [#] in 4 % Above high normal MEDG EN (St Body fluid by Juan C's Manual count [facility], ) ID Date Data Source [id number] 05/01/2020 12:00:00 AM EDT [facility] ([facility], ) Name Value Range Interpretation Code Description Data Supporting Source(s) Document(s ) Ferritin, 191 ng/mL Normal (applies to MEDGEN (St Serum non-numeric Juan C's results) [facility], ) ID Date Data Source [id number] 05/01/2020 12:00:00 AM EDT [facility] ([facility], ) Name Value Range Interpretation Description Data Sup porting Code Source(s) Document(s ) Deprecated 2.4 mg/dL Below low normal MEDGEN (St Phosphorus Juan C's [Mass/time] in [facility], ) 24 hour Urine ID Date Data Source [id number] 05/01/2020 12:00:00 AM EDT [facility] ([facility], ) Name Value Range Interpretation Description Data Sup porting Code Source(s) Document(s ) Vitamin D, 29.4 Below low normal MEDGEN (St 25-Hydroxy ng/mL [facility], ) ID Date Data Source [id number] 05/01/2020 12:00:00 AM EDT [facility] ([facility], ) Name Value Range Interpretation Code Description Data Supporting Source(s) Document(s ) Creatinine 77.9 mg/dL Normal (applies to MEDGEN (S t , Urine non-numeric Juan C's results) Medical, ) Protein,To 227.0 Normal (applies to MEDGEN (St ruth,Urine mg/dL non-numeric Juan C's results) [facility], ) Protein/Cr 2914 mg/g Above high normal MEDGEN (St eat Ratio creat [facility], ) ID Date Data Source [id number] 05/01/2020 12:00:00 AM EDT [facility] ([facility], ) Name Value Range Interpretation Description [...] to non-numeric Juan C's results) Medical, ) Urine-Color Yellow Normal (applies MEDGEN (St to non-numeric Juan C's results) Medical, ) WBC Esterase Negative Normal (applies MEDGEN (St to non-numeric Juan C's results) Medical, ) Protein Abnormal MEDGEN (St [Mass/volume] in (applies to Juan C's Lower non-numeric Medical, respiratory results) PC) specimen Glucose Negative Normal (applies MEDGEN (St [Mass/volume] in to non-numeric Juan C's Urine collected results) [facility], for unspecified PC) duration Ketones Negative [...] results) Medical, ) ID Date Data Source [id number] 05/01/2020 12:00:00 AM EDT [facility], ) Name Value Range Interpretation Description Data Sup porting Code Source(s) Document(s ) Glucose 90 mg/dL Normal (applies [facility]GEN (St [Mass/volume] in to non-numeric Juan C's Urine collected for results) Medical, unspecified ) duration Urea nitrogen 37 mg/dL Above high MEDGEN (St [Mass/volume] in normal Juan C's Serum or Plasma [facility], ) eGFR If NonAfricn 13 Below low normal MEDGE N (St Am mL/min/1 [facility]'s [address] [place] [address], ) Creatinine 4.28 Above high MEDGEN (St [Interpretation] in mg/dL normal Juan C's Urine [facility], ) eGFR If Africn Am 15 Below low normal MEDGE N (St mL/min/1 Juan C's .[facility], ) BUN/Creatinine 9 Below low normal MEDGEN ( St Ratio Juan C's [facility], ) Sodium 138 Normal (applies MEDGEN (St [Moles/volume] in mmol/L to non-numeric Juan C's Serum or Plasma results) Medical, ) Potassium 5.1 Normal (applies MEDGEN (St [Mass/volume] in mmol/L to non-numeric Juan C's Blood results) Medical, ) Chloride 108 Above high MEDGEN (St [Moles/volume] in mmol/L normal Juan C's Serum or Plasma [facility], ) Carbon dioxide, 19 Below low [...] 4.7 g/dL Above high MEDGEN (St normal [facility], ) A/G Ratio 0.8 Below low normal [facility] ([facility], ) Bilirubin.total 0.4 Normal (applies MEDGEN ( St [Mass/volume] in mg/dL to non-numeric Juan C's Serum or Plasma results) [facility], ) Alkaline 86 IU/L Normal (applies [...] Serum or Plasma ID Date Data Source [id number] 05/01/2020 12:00:00 AM EDT MEDGEN (St [facility], ) Name Value Range Interpretation Description Data Sup porting Code Source(s) Document(s ) Leukocytes 13.3 Above high normal MEDGEN (St [#/volume] in x10E3/uL Juan C's Blood by [facility], ) Automated count Erythrocytes 2.72 Below lower panic MEDGEN (S t [#/volume] in x10E6/uL limits Juan C's Blood by [facility]) Automated count Hemoglobin 9.1 g/dL Below low normal MEDGEN (St [Mass/volume] in Juan C's Blood [facility]) Hematocrit 27.8 % Below low normal MEDGEN (St [Volume Juan C's Fraction] of [facility]) Blood by Automated count MCV 102 fL Above high normal [facility] ([facility], ) MCH 33.5 pg Above high normal [facility] MCHC 32.7 Normal (applies MEDGEN (St g/dL to non-numeric Juan C's results) [facility]) RDW 18.4 % Above high normal MEDGEN ([facility], ) Platelets 230 Normal (applies MEDGEN (St [#/area] in x10E3/uL to non-numeric Juan C's Blood by results) [facility]) Microscopy high power field Neutrophils [#] 49 % Normal (applies MEDGEN ( St in Body fluid by to non-numeric Juan C's Manual count results) [facility]) Lymphs 33 % Normal (applies MEDGEN (St to non-numeric Juan C's results) [facility]) Monocytes 8 % Normal (applies MEDGEN (St [#/volume] in to non-numeric Juan C's Cord blood results) [facility]) Eos 4 % Normal (applies MEDGEN (St to non-numeric Juan C's results) [facility]) Basos 0 % Normal (applies MEDGEN (St to non-numeric Juan C's results) [facility]) Immature cells Note Normal (applies MEDGEN (S t [#/volume] in to non-numeric Juan C's Blood results) [facility]) Neutrophils 6.5 Normal (applies MEDGEN (St (Absolute) x10E3/uL to non-numeric Juan C's results) [facility]) Lymphs 4.4 Above high normal MEDGEN (St (Absolute) x10E3/uL [facility]'s [facility]) Monocytes(Absolu 1.1 Above high normal MEDGE N (St te) x10E3/uL [facility]) Eos (Absolute) 0.5 Above high normal MEDGEN (St x10E3/uL [facility]'s [facility]) Baso (Absolute) 0.0 Normal (applies MEDGEN ( St x10E3/uL to non-numeric Juan C's results) [facility], ) NRBC 8 % Above high normal [facility] ([facility], ) Hematology Note: Normal (applies MEDGEN (St Comments: to non-numeric Juan C's results) [facility], ) ID Date Data Source [id number] 05/01/2020 12:00:00 AM EDT [facility] ([facility], ) Name Value Range Interpretation Description Data Sup porting Code Source(s) Document(s ) Myelocytes [#] in 4 % Above high normal MEDG EN (St Body fluid by [facility] Manual count [facility], ) Metamyelocytes [#] 2 % Above high normal MED GEN (St in Body fluid by [facility] Manual count [facility], ) ID Date Data Source [id number] 05/01/2020 12:00:00 AM EDT [facility] ([facility], ) Name Value Range Interpretation Code Description Data Supporting Source(s) Document(s ) Ferritin, 191 ng/mL Normal (applies to MEDGEN (St Serum non-numeric Juan C's results) [facility], ) ID Date Data Source [id number] 05/01/2020 12:00:00 AM EDT [facility] ([facility], ) Name Value Range Interpretation Description Data Sup porting Code Source(s) Document(s ) Deprecated 2.4 mg/dL Below low normal MEDGEN (St Phosphorus Juan C's [Mass/time] in [facility], ) 24 hour Urine ID Date Data Source [id number] 05/01/2020 12:00:00 AM EDT [facility] ([facility], ) Name Value Range Interpretation Description Data Sup porting Code Source(s) Document(s ) Vitamin D, 29.4 Below low normal MEDGEN (St 25-Hydroxy ng/mL [facility], ) ID Date Data Source [id number] 05/01/2020 12:00:00 AM EDT [facility] ([facility], ) Name Value Range Interpretation Code Description Data Supporting Source(s) Document(s ) Creatinine 77.9 mg/dL Normal (applies to MEDGEN (S t , Urine non-numeric Juan C's results) [facility], ) Protein,To 227.0 Normal (applies to MEDGEN (St ruth,Urine mg/dL non-numeric Juan C's results) Medical, PC) Protein/Cr 2914 mg/g Above high normal MEDGEN (St eat Ratio creat [facility], ) ID Date Data Source [id number] 05/01/2020 12:00:00 AM EDT [facility] ([facility], ) Name Value Range Interpretation Description [...] Serum or Plasma ID Date Data Source [id number] 05/01/2020 12:00:00 AM EDT MEDGEN ([facility], ) Name Value Range Interpretation Description [...] results) Medical, PC) ID Date Data Source [id number] 05/01/2020 12:00:00 AM EDT MEDGEN ([facility] [...] Juan C's results) Medical, PC) Bacteria None seen Normal (applies MEDGEN (St [Presence] in to non-numeric Juan C's Prostatic results) Medical, PC) fluid by Light microscopy ID Date Data Source [id number] 05/01/2020 12:00:00 AM EDT [facility] ([facility], ) Name Value Range Interpretation Description Data Sup porting Code Source(s) Document(s ) Glucose 90 mg/dL Normal (applies MEDGEN (St [Mass/volume] in to non-numeric Juan C's Urine collected for results) Medical, unspecified PC) duration Urea nitrogen 37 mg/dL Above high MEDGEN (St [Mass/volume] in normal Juan C's Serum or Plasma Medical, PC) Creatinine 4.28 Above high MEDGEN (St [Interpretation] in mg/dL normal Juan C's Urine Medical, PC) eGFR If NonAfricn 13 Below low normal MEDGE N (St Am mL/min/1 Juan C's .73 [facility], PC) eGFR If Africn Am 15 Below low normal MEDGE N (St mL/min/1 Juan C's .73 [facility], PC) BUN/Creatinine 9 Below low normal MEDGEN ( St Ratio [facility], ) Sodium 138 Normal (applies MEDGEN (St [Moles/volume] in mmol/L to non-numeric Juan C's Serum or Plasma results) [facility], ) Potassium 5.1 Normal (applies MEDGEN (St [Mass/volume] in mmol/L to non-numeric Juan C's Blood results) [facility], ) Chloride 108 Above high MEDGEN (St [Moles/volume] in mmol/L normal Juan C's Serum or Plasma [facility], ) Carbon dioxide, 19 Below low normal MEDGEN (St total mmol/L Juan C's [Moles/volume] in Medical, Serum or Plasma PC) Calcium 7.4 Below low normal MEDGEN (St [Moles/volume] in mg/dL Juan C's Urine collected for Medical, unspecified PC) duration Protein 8.5 g/dL Normal (applies MEDGEN (St [Mass/volume] in to non-numeric Juan C's Serum or Plasma results) [facility], ) Microalbumin 3.8 g/dL Normal (applies MEDGEN (St [Mass/time] in to non-numeric Juan C's Urine collected for results) [facility], unspecified ) duration Globulin, Total 4.7 g/dL Above high MEDGEN (St normal [facility], ) A/G Ratio 0.8 Below low normal MEDGEN ([facility], ) Bilirubin.total 0.4 Normal (applies MEDGEN [...] Serum or Plasma ID Date Data Source [id number] 05/01/2020 12:00:00 AM EDT MEDGEN ([facility], ) Name Value Range Interpretation Description Data Sup porting Code Source(s) Document(s ) Leukocytes 13.3 Above high normal MEDGEN (St [#/volume] in x10E3/uL Juan C's Blood by [facility]) Automated count Erythrocytes 2.72 Below lower panic MEDGEN (S t [#/volume] in x10E6/uL limits Juan C's Blood by [facility]) Automated count Hemoglobin 9.1 g/dL Below low normal MEDGEN (St [Mass/volume] in Juan C's Blood [facility]) Hematocrit 27.8 % Below low normal MEDGEN (St [Volume Juan C's Fraction] of [facility]) Blood by Automated count MCV 102 fL Above high normal MEDGEN ([facility], ) MCH 33.5 pg Above high normal MED[facility] ([facility]) MCHC 32.7 Normal (applies MEDGEN (St g/dL to non-numeric Juan C's results) [facility]) RDW 18.4 % Above high normal MEDGEN ([facility], ) Platelets 230 Normal (applies MEDGEN (St [#/area] in x10E3/uL to non-numeric Juan C's Blood by results) [facility]) Microscopy high power field Neutrophils [#] 49 % Normal (applies MEDGEN ( St in Body fluid by to non-numeric Juan C's Manual count results) [facility]) Lymphs 33 % Normal (applies MEDGEN (St to non-numeric Juan C's results) [facility]) Monocytes 8 % Normal (applies MEDGEN (St [#/volume] in to non-numeric Juan C's Cord blood results) [facility]) Eos 4 % Normal (applies MEDGEN (St to non-numeric Juan C's results) [facility]) Basos 0 % Normal (applies MEDGEN (St to non-numeric Juan C's results) [facility]) Immature cells Note Normal (applies MEDGEN (S t [#/volume] in to non-numeric Juan C's Blood results) [facility]) Neutrophils 6.5 Normal (applies MEDGEN (St (Absolute) x10E3/uL to non-numeric Juan C's results) [facility]) Lymphs 4.4 Above high normal MEDGEN (St (Absolute) x10E3/uL [facility]'s [facility]) Monocytes(Absolu 1.1 Above high normal MEDGE N (St te) x10E3/uL [facility]'s [facility]) Eos (Absolute) 0.5 Above high normal MEDGEN (St x10E3/uL [facility]'s [facility], ) Baso (Absolute) 0.0 Normal (applies MEDGEN ( St x10E3/uL to non-numeric Juan C's results) [facility], ) NRBC 8 % Above high normal MEDGEN ([facility], ) Hematology Note: Normal (applies MEDGEN (St Comments: to non-numeric Juan C's results) [facility], ) ID Date Data Source [id number] 05/01/2020 12:00:00 AM EDT MEDGEN ([facility], ) Name Value Range Interpretation Description Data Sup porting Code Source(s) Document(s ) Metamyelocytes [#] 2 % Above high normal MED GEN (St in Body fluid by [facility] Manual count [facility], ) Myelocytes [#] in 4 % Above high normal MEDG EN (St Body fluid by [facility] Manual count [facility], ) ID Date Data Source [id number] 05/01/2020 12:00:00 AM EDT MEDGEN ([facility], ) Name Value Range Interpretation Code Description Data Supporting Source(s) Document(s ) Ferritin, 191 ng/mL Normal (applies to MEDGEN (St Serum non-numeric Juan C's results) [facility], ) ID Date Data Source [id number] 05/01/2020 12:00:00 AM EDT MEDGEN ([facility], ) Name Value Range Interpretation Description Data Sup porting Code Source(s) Document(s ) Deprecated 2.4 mg/dL Below low normal MEDGEN (St Phosphorus Juan C's [Mass/time] in [facility], ) 24 hour Urine ID Date Data Source [id number] 05/01/2020 12:00:00 AM EDT MEDGEN ([facility], ) Name Value Range Interpretation Description Data Sup porting Code Source(s) Document(s ) Vitamin D, 29.4 Below low normal MEDGEN (St 25-Hydroxy ng/mL [facility], ) ID Date Data Source [id number] 05/01/2020 12:00:00 AM EDT MEDGEN ([facility], ) Name Value Range Interpretation Code Description Data Supporting Source(s) Document(s ) Creatinine 77.9 mg/dL Normal (applies to MEDGEN (S t , Urine non-numeric Juan C's results) Medical, ) Protein,To 227.0 Normal (applies to MEDGEN (St ruth,Urine mg/dL non-numeric Juan C's results) Medical, PC) Protein/Cr 2914 mg/g Above high normal MEDGEN (St eat Ratio creat Juan C's [facility], ) ID Date Data Source [id number] 05/01/2020 12:00:00 AM EDT [facility], ) Name Value Range Interpretation Description Data Sup porting Code Source(s) Document(s ) Iron 270 ug/dL Normal (applies to MEDGEN (St Bind.Cap.(TIBC non-numeric Juan C's ) results) Medical, ) UIBC 231 ug/dL Normal (applies to MEDGEN (St non-numeric Juan C's results) Medical, PC) Iron 39 ug/dL Normal (applies to MEDGEN (St [Mass/volume] non-numeric Juan C's in Serum or results) Medical, ) Plasma Iron 14 % Below low normal MEDGEN (St saturation Juan C's [[facility], ) Fraction] in Serum or Plasma ID Date Data Source [id number] 05/01/2020 12:00:00 AM EDT MEDGEN ([facility], ) Name Value Range Interpretation Description Data Sup porting Code Source(s) Document(s ) Specific gravity 1.015 Normal (applies MEDGEN (St of Pericardial to non-numeric Juan C's fluid by results) Medical, Refractometry PC) pH of Lower 7.0 Normal (applies MEDGEN (St respiratory to non-numeric Ujan C's specimen results) Medical, ) Urine-Color Yellow [...] to Juan C's non-numeric Medical, results) ) Urobilinogen,Mel 0.2 mg/dL Normal (applies MEDGEN [...] results) Medical, PC) ID Date Data Source [id number] 05/01/2020 12:00:00 AM EDT MEDGEN (St Julienne [...] Juan C's results) Medical, PC) Bacteria None seen Normal (applies MEDGEN (St [Presence] in to non-numeric Juan C's Prostatic results) Medical, PC) fluid by Light microscopy ID Date Data Source [id number] 05/01/2020 12:00:00 AM EDT MEDGEN (St Julienne [...] mL/min/1 Juan C's .73 Medical, PC) Creatinine 4.28 Above high MEDGEN (St [Interpretation] in mg/dL normal Juan C's Urine [facility], ) eGFR If Africn Am 15 Below low normal MEDGE N (St mL/min/1 Juan C's .73 [facility], ) BUN/Creatinine 9 Below low normal MEDGEN ( St Ratio [facility], ) Sodium 138 Normal (applies MEDGEN (St [Moles/volume] in mmol/L to non-numeric Juan C's Serum or Plasma results) [facility], ) Potassium 5.1 Normal (applies MEDGEN (St [Mass/volume] in mmol/L to non-numeric Juan C's Blood results) [facility], ) Chloride 108 Above high MEDGEN (St [Moles/volume] in mmol/L normal Juan C's Serum or Plasma [facility], ) Carbon dioxide, 19 Below low normal MEDGEN (St total mmol/L Juan C's [Moles/volume] in Medical, Serum or Plasma PC) Calcium 7.4 Below low normal MEDGEN (St [Moles/volume] in mg/dL Juan C's Urine collected for Medical, unspecified PC) duration Microalbumin 3.8 g/dL Normal (applies MEDGEN (St [Mass/time] in to non-numeric Juan C's Urine collected for results) [facility], unspecified ) duration Protein 8.5 g/dL Normal (applies MEDGEN (St [Mass/volume] in to non-numeric Juan C's Serum or Plasma results) [facility], ) Globulin, Total 4.7 g/dL Above high MEDGEN (St normal [facility], ) A/G Ratio 0.8 Below low normal MEDGEN ([facility], ) Alkaline 86 IU/L Normal (applies MEDGEN (St phosphatase to non-numeric Juan C's [Enzymatic results) [facility], activity/volume] in ) Serum, Plasma or Blood Bilirubin.total 0.4 Normal (applies MEDGEN ( St [Mass/volume] in mg/dL to non-numeric Juan C's Serum or Plasma results) [facility], ) Aspartate 37 IU/L Normal (applies MEDGEN (St aminotransferase to non-numeric Juan C's [Enzymatic results) Medical, activity/volume] in ) Serum or Plasma Alanine 43 IU/L Normal (applies MEDGEN (St aminotransferase to non-numeric Juan C's [Enzymatic results) Medical, activity/volume] in ) Serum or Plasma ID Date Data Source [id number] 05/01/2020 12:00:00 AM EDT MEDGEN (St [facility], ) Name Value Range Interpretation Description Data Sup porting Code Source(s) Document(s ) Leukocytes 13.3 Above high normal MEDGEN (St [#/volume] in x10E3/uL Juan C's Blood by [facility], ) Automated count Hemoglobin 9.1 g/dL Below low normal MEDGEN (St [Mass/volume] in Juan C's Blood [facility], ) Erythrocytes 2.72 Below lower panic MEDGEN (S t [#/volume] in x10E6/uL limits Juan C's Blood by [facility], ) Automated count Hematocrit 27.8 % Below low normal MEDGEN (St [Volume Juan C's Fraction] of [facility], ) Blood by Automated count MCV 102 fL Above high normal MEDGEN ([facility], ) MCH 33.5 pg Above high normal MEDGEN ([facility], ) MCHC 32.7 Normal (applies MEDGEN (St g/dL to non-numeric Juan C's results) [facility]) RDW 18.4 % Above high normal MEDGEN ([facility], ) Platelets 230 Normal (applies MEDGEN (St [#/area] in x10E3/uL to non-numeric Juan C's Blood by results) [facility], ) Microscopy high power field Neutrophils [#] 49 % Normal (applies MEDGEN ( St in Body fluid by to non-numeric Juan C's Manual count results) [facility]) Lymphs 33 % Normal (applies MEDGEN (St to non-numeric Juan C's results) [facility]) Monocytes 8 % Normal (applies MEDGEN (St [#/volume] in to non-numeric Juan C's Cord blood results) [facility]) Eos 4 % Normal (applies MEDGEN (St to non-numeric Juan C's results) [facility]) Basos 0 % Normal (applies MEDGEN (St to non-numeric Juan C's results) [facility]) Neutrophils 6.5 Normal (applies MEDGEN (St (Absolute) x10E3/uL to non-numeric Juan C's results) [facility]) Immature cells Note Normal (applies MEDGEN (S t [#/volume] in to non-numeric Juan C's Blood results) [facility], ) Lymphs 4.4 Above high normal MEDGEN (St (Absolute) x10E3/uL Juan C's [facility], ) Monocytes(Absolu 1.1 Above high normal MEDGE N (St te) x10E3/uL [facility]'s [facility], ) Baso (Absolute) 0.0 Normal (applies MEDGEN ( St x10E3/uL to non-numeric Juan C's results) [facility]) Eos (Absolute) 0.5 Above high normal MEDGEN (St x10E3/uL [facility]'s [facility], ) NRBC 8 % Above high normal MEDGEN ([facility], ) Hematology Note: Normal (applies MEDGEN (St Comments: to non-numeric Juan C's results) [facility], ) ID Date Data Source [id number] 05/01/2020 12:00:00 AM EDT MEDGEN ([facility], ) Name Value Range Interpretation Description Data Sup porting Code Source(s) Document(s ) Metamyelocytes [#] 2 % Above high normal MED GEN (St in Body fluid by [facility]'s Manual count [facility], ) Myelocytes [#] in 4 % Above high normal MEDG EN (St Body fluid by [facility]'s Manual count [facility], ) ID Date Data Source [id number] 04/28/2020 12:00:00 AM EDT [facility] ([facility], ) Name Value Range Interpretation Code Description Data Lisa rce(s) Supporting Document(s ) URIC ACID 5.0 mg/dL Normal (applies to MEDGEN (St non-numeric Juan C's results) [facility], ) ID Date Data Source [id number] 04/28/2020 12:00:00 AM EDT MEDGEN ([facility], ) Name Value Range Interpretation Description Data Sup porting Code Source(s) Document(s ) Glucose 92 mg/dL Normal (applies MEDGEN (St [Mass/volume] in to non-numeric Juan C's Urine collected results) [facility], ) for unspecified duration Sodium 133 Below low normal MEDGEN (St [Moles/volume] mmol/L Juan C's in Serum, Plasma [facility], ) or Blood Potassium 5.2 Normal (applies MEDGEN (St [Mass/volume] in mmol/L to non-numeric Juan C's Blood results) [facility], ) Chloride 109 Normal (applies MEDGEN (St [Moles/volume] mmol/L to non-numeric Juan C's in Serum, Plasma results) [facility]) or Blood Urea nitrogen 36 mg/dL Above high normal MEDGEN ( St [Moles/volume] Juan C's in Blood [facility]) Carbon dioxide 20 Normal (applies MEDGEN (S t [VFr/PPres] in mmol/L to non-numeric Juan C's Gas delivery results) [facility]) system Creatinine 4.78 Above high normal MEDGEN (St [Interpretation] mg/dL Juan C's in Urine [facility]) BUN/CREATININE 8 (calc) Normal (applies MEDGEN (S t RATIO to non-numeric Juan C's results) [facility]) Calcium 7.6 Below low normal MEDGEN (St [Moles/volume] mg/dL Juan C's in Urine [facility]) collected for unspecified duration PROTEIN, TOTAL 8.1 g/dL Normal (applies MEDGEN (S t to non-numeric Juan C's results) [facility]) Globulin 4.6 g/dL Above high normal MEDGEN (St [Mass/time] in (calc) Juan C's 24 hour Urine [facility]) Microalbumin 3.5 g/dL Below low normal MEDGEN (St [Mass/time] in Juan C's Urine collected [facility]) for unspecified duration ALBUMIN/GLOBULIN 0.8 Below low normal MEDGEN (St RATIO (calc) [facility]) BILIRUBIN,TOTAL 0.3 Normal (applies MEDGEN ( St mg/dL to non-numeric Juan C's results) [facility]) Alkaline 71 U/L Normal (applies MEDGEN (St phosphatase to non-numeric Juan C's [Enzymatic results) [facility]) activity/volume] in Serum, Plasma or Blood AST 37 U/L Above high normal MEDGEN ([facility], ) ALT 36 U/L Normal (applies MEDGEN (St to non-numeric Juan C's results) [facility]) EGFR 13 Below low normal MEDGEN (St NAMIBIAN mL/min/1 Juan C's .73m2 [facility]) EGFR NON AFR 11 Below low normal MEDGEN (St NAMIBIAN mL/min/1 Juan C's .73m2 [facility]) ID Date Data Source [id number] 04/28/2020 12:00:00 AM EDT MEDGEN ([facility], ) Name Value Range Interpretation Description Data Sup porting Code Source(s) Document(s ) VITAMIN 30 ng/mL Normal (applies to MEDGEN (St D,25-OH,TOTA non-numeric Juan C's L,IA results) Medical, PC) ID Date Data Source [id number] 04/28/2020 12:00:00 AM EDT MEDGEN (St Julienne [...] Light PC) microscopy ID Date Data Source [id number] 04/28/2020 12:00:00 AM EDT MEDGEN (St Julienne [...] to non-numeric Juan C's results) Medical, ) EOSINOPHILS,% 2.5 % Normal (applies MEDGEN (St to non-numeric Juan C's results) Medical, ) BASOPHILS,% 0.6 % Normal (applies MEDGEN (St to non-numeric Juan C's results) Medical, ) BANDS,% 0.6 % Normal (applies MEDGEN (St to non-numeric Juan C's results) Medical, ) MYELOCYTES,% 3.2 % Normal (applies MEDGEN (St to non-numeric Juan C's results) Medical, ) NEUTROPHILS, 6749 Normal (applies MEDGEN (St ABSOLUTE cells/uL to non-numeric Juan C's results) Medical, ) METAMYELOCYTES,% 2.5 % Normal (applies MEDGEN (St to non-numeric Juan C's results) Medical, ) BAND,ABSOLUTE 67 Normal (applies MEDGEN (St cells/uL to non-numeric Juan C's results) Medical, ) LYMPHOCYTES, 2464 Normal (applies MEDGEN (St ABSOLUTE cells/uL to non-numeric Juan C's results) Medical, ) MONOCYTES, 844 Normal (applies MEDGEN (St ABSOLUTE cells/uL to non-numeric Juan C's results) Medical, ) BASOPHILS, 67 Normal (applies MEDGEN (St ABSOLUTE cells/uL to non-numeric Juan C's results) Medical, ) EOSINOPHILS, 278 Normal (applies MEDGEN (St ABSOLUTE cells/uL to non-numeric Juan C's results) Medical, ) MYELOCYTES,ABSOL 355 Above high normal MEDGE N (St [facility] IRA cells/uL Juan C's Medical, ) METAMYELOCYTES,A 278 Above high normal MEDGE N (St BSOLUTE cells/uL [facility]) NUCLEATED RBC 3 /100 Above high normal MEDGEN ( St WBC [facility]) NUCLEATED 278 Above high normal MEDGEN (St RBC,ABSOLUTE cells/uL [facility]) MORPHOLOGICAL Normal (applies MEDGEN (St REVIEW to non-numeric Juan C's results) [facility]) ID Date Data Source [id number] 04/28/2020 12:00:00 AM EDT MEDGEN ( [facility]) Name Value Range Interpretation Description Data Sup porting Code Source(s) Document(s ) WBC 11.1 Above high normal MEDGEN (St Thousand [facility]'s /[facility]) RBC 2.50 Below low normal MEDGEN (St Million/ [facility]'s [facility], ) Hemoglobin 8.3 g/dL Below low normal MEDGEN (St [Mass/volume] in [facility] Mixed venous [facility]) blood by Oximetry Hematocrit [Pure 24.9 % Below low normal MEDGEN (St volume fraction] [facility]'s of Blood by [facility]) Automated count MCV 99.6 fL Normal (applies MEDGEN (St to non-numeric Juan C's results) [facility]) MCH 33.2 pg Above high normal MEDGEN ([facility]) MCHC 33.3 Normal (applies MEDGEN (St g/dL to non-numeric Juan C's results) [facility]) RDW 18.2 % Above high normal [facility] ([facility] PLATELET COUNT 214 Normal (applies MEDGEN (S t Thousand to non-numeric Juan C's /uL results) [facility]) MPV 10.1 fL Normal (applies MEDGEN (St to non-numeric Juan C's results) [facility]) DIFFERENTIAL Normal (applies MEDGEN (St to non-numeric Juan C's results) [facility]) ID Date Data Source [id number] 04/28/2020 12:00:00 AM EDT [facility]GEN ([facility], ) Name Value Range Interpretation Description Data Sup porting Code Source(s) Document(s ) PHOSPHATE ( 2.5 mg/dL Normal (applies to MEDGEN (St PHOSPHORUS) non-numeric [facility]'s results) [facility]) ID Date Data Source [id number] 04/28/2020 12:00:00 AM EDT MEDGEN ([facility], ) Name Value Range Interpretation Code Description Data Lisa rce(s) Supporting Document(s ) URIC ACID 5.0 mg/dL Normal (applies to MEDGEN (St non-numeric Juan C's results) [facility]) ID Date Data Source [id number] 04/28/2020 12:00:00 AM EDT MEDGEN ([facility], ) Name Value Range Interpretation Description Data Sup porting Code Source(s) Document(s ) Glucose 92 mg/dL Normal (applies MEDGEN (St [Mass/volume] in to non-numeric Juan C's Urine collected results) [facility], ) for unspecified duration Sodium 133 Below low normal MEDGEN (St [Moles/volume] mmol/L Juan C's in Serum, Plasma [facility], ) or Blood Potassium 5.2 Normal (applies MEDGEN (St [Mass/volume] in mmol/L to non-numeric Juan C's Blood results) [facility]) Chloride 109 Normal (applies MEDGEN (St [Moles/volume] mmol/L to non-numeric Juan C's in Serum, Plasma results) [facility]) or Blood Carbon dioxide 20 Normal (applies MEDGEN (S t [VFr/PPres] in mmol/L to non-numeric Juan C's Gas delivery results) [facility]) system Urea nitrogen 36 mg/dL Above high normal MEDGEN ( St [Moles/volume] Juan C's in Blood [facility], ) Creatinine 4.78 Above high normal MEDGEN (St [Interpretation] mg/dL Juan C's in Urine [facility], ) BUN/CREATININE 8 (calc) Normal (applies MEDGEN (S t RATIO to non-numeric Juan C's results) [facility]) PROTEIN, TOTAL 8.1 g/dL Normal (applies MEDGEN (S t to non-numeric Juan C's results) [facility]) Calcium 7.6 Below low normal MEDGEN (St [Moles/volume] mg/dL Juan C's in Urine [facility], ) collected for unspecified duration Microalbumin 3.5 g/dL Below low normal MEDGEN (St [Mass/time] in Juan C's Urine collected [facility]) for unspecified duration Globulin 4.6 g/dL Above high normal MEDGEN (St [Mass/time] in (calc) Juan C's 24 hour Urine [facility]) ALBUMIN/GLOBULIN 0.8 Below low normal MEDGEN (St RATIO (calc) [facility], ) BILIRUBIN,TOTAL 0.3 Normal (applies MEDGEN ( St mg/dL to non-numeric Juan C's results) [facility], PC) Alkaline 71 U/L Normal (applies MEDGEN (St phosphatase to non-numeric Juan C's [Enzymatic results) Medical, PC) activity/volume] in Serum, Plasma or Blood AST 37 U/L Above high normal MEDGEN ([facility], ) EGFR NON AFR 11 Below low normal MEDGEN (St NAMIBIAN mL/min/1 Juan C's .73m2 [facility], ) ALT 36 U/L Normal (applies MEDGEN (St to non-numeric Juan C's results) Medical, ) EGFR 13 Below low normal MEDGEN (St NAMIBIAN mL/min/1 Juan C's .73m2 [facility], ) ID Date Data Source [id number] 04/28/2020 12:00:00 AM EDT MEDGEN ([facility], ) Name Value Range Interpretation Description Data Sup porting Code Source(s) Document(s ) VITAMIN 30 ng/mL Normal (applies to MEDGEN (St D,25-OH,TOTA non-numeric Juan C's L,IA results) Medical, ) ID Date Data Source [id number] 04/28/2020 12:00:00 AM EDT MEDGEN ([facility], ) Name Value Range Interpretation Description Data Sup porting Code Source(s) Document(s ) Color of Yellow Normal (applies MEDGEN (St Peritoneal to non-numeric Juan C's dialysis fluid results) Medical, ) Appearance of Clear Normal (applies MEDGEN (St Abdomen to non-numeric Juan C's results) Medical, ) Specific gravity 1.016 Normal (applies MEDGEN (St of Pericardial to non-numeric Juan C's fluid by results) Medical, Refractometry ) pH of Lower 6.5 Normal (applies MEDGEN (St respiratory to non-numeric Juan C's specimen results) [facility], ) Bilirubin Negative Normal (applies MEDGEN (St [Presence] in to non-numeric Juan C's Peritoneal fluid results) Medical, ) Glucose Negative Normal (applies [...] results) Medical, PC) ID Date Data Source [id number] 04/28/2020 12:00:00 AM EDT MEDGEN (St Julienne [...] MEDGEN (St to non-numeric Juan C's results) [facility]) METAMYELOCYTES,% 2.5 % Normal (applies MEDGEN (St to non-numeric Juan C's results) [facility]) NEUTROPHILS, 6749 Normal (applies MEDGEN (St ABSOLUTE cells/uL to non-numeric Juan C's results) [facility]) BAND,ABSOLUTE 67 Normal (applies MEDGEN (St cells/uL to non-numeric Juan C's results) [facility]) LYMPHOCYTES, 2464 Normal (applies MEDGEN (St ABSOLUTE cells/uL to non-numeric Juan C's results) [facility]) MONOCYTES, 844 Normal (applies MEDGEN (St ABSOLUTE cells/uL to non-numeric Juan C's results) [facility]) EOSINOPHILS, 278 Normal (applies MEDGEN (St ABSOLUTE cells/uL to non-numeric Juan C's results) [facility]) BASOPHILS, 67 Normal (applies MEDGEN (St ABSOLUTE cells/uL to non-numeric Juan C's results) [facility]) MYELOCYTES,ABSOL 355 Above high normal MEDGE N (St [facility] IRA cells/uL [facility]) METAMYELOCYTES,A 278 Above high normal MEDGE N (St BSOLUTE cells/uL [facility]) NUCLEATED RBC 3 /100 Above high normal MEDGEN ( St WBC [facility]) NUCLEATED 278 Above high normal MEDGEN (St RBC,ABSOLUTE cells/uL [facility]) MORPHOLOGICAL Normal (applies MEDGEN (St REVIEW to non-numeric [facility]'s results) [facility]) ID Date Data Source [id number] 04/28/2020 12:00:00 AM EDT [facility]GEN ([facility]) Name Value Range Interpretation Description Data Sup porting Code Source(s) Document(s ) WBC 11.1 Above high normal MEDGEN (St Thousand Juan C's /[facility]) RBC 2.50 Below low normal MEDGEN (St Million/ Juan C's [facility]) Hemoglobin 8.3 g/dL Below low normal MEDGEN (St [Mass/volume] in [facility] Mixed venous [facility]) blood by Oximetry Hematocrit [Pure 24.9 % Below low normal MEDGEN (St volume fraction] [facility] of Blood by [facility]) Automated count MCV 99.6 fL Normal (applies MEDGEN (St to non-numeric Juan C's results) [facility]) MCH 33.2 pg Above high normal MEDGEN ([facility], ) MCHC 33.3 Normal (applies MEDGEN (St g/dL to non-numeric Juan C's results) [facility], ) RDW 18.2 % Above high normal MEDGEN ([facility], ) PLATELET COUNT 214 Normal (applies MEDGEN (S t Thousand to non-numeric Juan C's /uL results) [facility], ) DIFFERENTIAL Normal (applies MEDGEN (St to non-numeric Juan C's results) [facility], ) MPV 10.1 fL Normal (applies MEDGEN (St to non-numeric Juan C's results) [facility], ) ID Date Data Source [id number] 04/28/2020 12:00:00 AM EDT [facility] Name Value Range Interpretation Description Data Sup porting Code Source(s) Document(s ) PHOSPHATE ( 2.5 mg/dL Normal (applies to MEDGEN (St PHOSPHORUS) non-numeric Juan C's results) [facility], ) ID Date Data Source [id number] 04/28/2020 12:00:00 AM EDT [facility] ([facility]) Name Value Range Interpretation Code Description Data Lisa rce(s) Supporting Document(s ) URIC ACID 5.0 mg/dL Normal (applies to MEDGEN (St non-numeric Juan C's results) [facility], ) ID Date Data Source [id number] 04/28/2020 12:00:00 AM EDT MEDGEN ([facility]) Name Value Range Interpretation Description Data Sup porting Code Source(s) Document(s ) Glucose 92 mg/dL Normal (applies MEDGEN (St [Mass/volume] in to non-numeric Juan C's Urine collected results) [facility], ) for unspecified duration Sodium 133 Below low normal MEDGEN (St [Moles/volume] mmol/L Juan C's in Serum, Plasma [facility], ) or Blood Potassium 5.2 Normal (applies MEDGEN (St [Mass/volume] in mmol/L to non-numeric Juan C's Blood results) [facility], ) Chloride 109 Normal (applies MEDGEN (St [Moles/volume] mmol/L to non-numeric Juan C's in Serum, Plasma results) [facility], ) or Blood Carbon dioxide 20 Normal (applies MEDGEN (S t [VFr/PPres] in mmol/L to non-numeric Juan C's Gas delivery results) [facility]) system Urea nitrogen 36 mg/dL Above high normal MEDGEN ( St [Moles/volume] Juan C's in Blood [facility]) Creatinine 4.78 Above high normal MEDGEN (St [Interpretation] mg/dL Juan C's in Urine [facility]) BUN/CREATININE 8 (calc) Normal (applies MEDGEN (S t RATIO to non-numeric Juan C's results) [facility]) PROTEIN, TOTAL 8.1 g/dL Normal (applies MEDGEN (S t to non-numeric Juan C's results) [facility]) Calcium 7.6 Below low normal MEDGEN (St [Moles/volume] mg/dL Juan C's in Urine [facility]) collected for unspecified duration Microalbumin 3.5 g/dL Below low normal MEDGEN (St [Mass/time] in [facility] Urine collected [facility]) for unspecified duration Globulin 4.6 g/dL Above high normal MEDGEN (St [Mass/time] in (calc) Juan C's 24 hour Urine [facility]) ALBUMIN/GLOBULIN 0.8 Below low normal MEDGEN (St RATIO (calc) [facility]) BILIRUBIN,TOTAL 0.3 Normal (applies MEDGEN ( St mg/dL to non-numeric Juan C's results) [facility]) Alkaline 71 U/L Normal (applies MEDGEN (St phosphatase to non-numeric Juan C's [Enzymatic results) [facility]) activity/volume] in Serum, Plasma or Blood AST 37 U/L Above high normal MEDGEN ([facility], ) ALT 36 U/L Normal (applies MEDGEN (St to non-numeric Juan C's results) [facility]) EGFR 13 Below low normal MEDGEN (St NAMIBIAN mL/min/1 Juan C's .73m2 [facility]) EGFR NON AFR 11 Below low normal MEDGEN (St NAMIBIAN mL/min/1 Juan C's .73m2 [facility]) ID Date Data Source [id number] 04/28/2020 12:00:00 AM EDT [facility] ([facility]) Name Value Range Interpretation Description Data Sup porting Code Source(s) Document(s ) VITAMIN 30 ng/mL Normal (applies to MEDGEN (St D,25-OH,TOTA non-numeric Juan C's L,IA results) [facility], [facility]) ID Date Data Source [id number] 04/28/2020 12:00:00 AM EDT MEDGEN ([facility] [...] results) [facility]) ID Date Data Source [id number] 04/28/2020 12:00:00 AM EDT MEDGEN ([facility], ) Name Value Range Interpretation Description Data Sup porting Code Source(s) Document(s ) SEGMENTED 60.8 % Normal (applies MEDGEN (St NEUTROPHILS,% to non-numeric Juan C's results) Medical, ) MONOCYTES,% 7.6 % Normal (applies MEDGEN (St to non-numeric Juan C's results) Medical, ) MATURE 22.2 % Normal (applies MEDGEN (St LYMPHOCYTES,% to non-numeric Juan C's results) Medical, ) EOSINOPHILS,% 2.5 % Normal (applies MEDGEN (St to non-numeric Juan C's results) [facility], ) BASOPHILS,% 0.6 % Normal (applies MEDGEN (St to non-numeric Juan C's results) [facility], ) BANDS,% 0.6 % Normal (applies MEDGEN (St to non-numeric Juan C's results) [facility], ) MYELOCYTES,% 3.2 % Normal (applies MEDGEN (St to non-numeric Juan C's results) [facility], ) METAMYELOCYTES,% 2.5 % Normal (applies MEDGEN (St to non-numeric Juan C's results) [facility], ) NEUTROPHILS, 6749 Normal (applies MEDGEN (St ABSOLUTE cells/uL to non-numeric Ujan C's results) [facility], ) BAND,ABSOLUTE 67 Normal (applies MEDGEN (St cells/uL to non-numeric Juan C's results) [facility], ) LYMPHOCYTES, 2464 Normal (applies MEDGEN (St ABSOLUTE cells/uL to non-numeric Juan C's results) [facility], ) MONOCYTES, 844 Normal (applies MEDGEN (St ABSOLUTE cells/uL to non-numeric Juan C's results) [facility], ) EOSINOPHILS, 278 Normal (applies MEDGEN (St ABSOLUTE cells/uL to non-numeric Juan C's results) [facility], ) BASOPHILS, 67 Normal (applies MEDGEN (St ABSOLUTE cells/uL to non-numeric Juan C's results) [facility], ) MYELOCYTES,ABSOL 355 Above high normal MEDGE N (St [facility] IRA cells/uL [facility]'s [facility]) METAMYELOCYTES,A 278 Above high normal MEDGE N (St BSOLUTE cells/uL [facility]) NUCLEATED RBC 3 /100 Above high normal MEDGEN ( St WBC [facility], ) NUCLEATED 278 Above high normal MEDGEN (St RBC,ABSOLUTE cells/uL [facility]) MORPHOLOGICAL Normal (applies MEDGEN (St REVIEW to non-numeric Juan C's results) [facility]) ID Date Data Source [id number] 04/28/2020 12:00:00 AM EDT MED[facility] ([facility], ) Name Value Range Interpretation Description Data Sup porting Code Source(s) Document(s ) WBC 11.1 Above high normal MEDGEN (St Thousand Juan C's /uL [facility], ) RBC 2.50 Below low normal MEDGEN (St Million/ Juan C's uL [facility], ) Hemoglobin 8.3 g/dL Below low normal MEDGEN (St [Mass/volume] in [facility] Mixed venous [facility], ) blood by Oximetry Hematocrit [Pure 24.9 % Below low normal MEDGEN (St volume fraction] [facility] of Blood by [facility], ) Automated count MCV 99.6 fL Normal (applies MEDGEN (St to non-numeric Juan C's results) [facility]) MCH 33.2 pg Above high normal [facility] MCHC 33.3 Normal (applies MEDGEN (St g/dL to non-numeric Juan C's results) [facility]) RDW 18.2 % Above high normal [facility] ([facility], ) PLATELET COUNT 214 Normal (applies MEDGEN (S t Thousand to non-numeric Juan C's /uL results) [facility]) MPV 10.1 fL Normal (applies MEDGEN (St to non-numeric Juan C's results) [facility], ) DIFFERENTIAL Normal (applies MEDGEN (St to non-numeric Juan C's results) [facility]) ID Date Data Source [id number] 04/28/2020 12:00:00 AM EDT [facility] ([facility], ) Name Value Range Interpretation Description Data Sup porting Code Source(s) Document(s ) PHOSPHATE ( 2.5 mg/dL Normal (applies to MEDGEN (St PHOSPHORUS) non-numeric Juan C's results) [facility]) ID Date Data Source [id number] 04/28/2020 12:00:00 AM EDT MEDGEN ([facility], ) Name Value Range Interpretation Code Description Data Lisa rce(s) Supporting Document(s ) URIC ACID 5.0 mg/dL Normal (applies to MEDGEN (St non-numeric Juan C's results) [facility]) ID Date Data Source [id number] 04/28/2020 12:00:00 AM EDT [facility] ([facility], ) Name Value Range Interpretation Description Data Sup porting Code Source(s) Document(s ) Glucose 92 mg/dL Normal (applies MEDGEN (St [Mass/volume] in to non-numeric Juan C's Urine collected results) [facility]) for unspecified duration Sodium 133 Below low normal MEDGEN (St [Moles/volume] mmol/L Juan C's in Serum, Plasma [facility]) or Blood Potassium 5.2 Normal (applies MEDGEN (St [Mass/volume] in mmol/L to non-numeric Juan C's Blood results) [facility]) Chloride 109 Normal (applies MEDGEN (St [Moles/volume] mmol/L to non-numeric Juan C's in Serum, Plasma results) [facility]) or Blood Carbon dioxide 20 Normal (applies MEDGEN (S t [VFr/PPres] in mmol/L to non-numeric Juan C's Gas delivery results) [facility]) system Urea nitrogen 36 mg/dL Above high normal MEDGEN ( St [Moles/volume] Juan C's in Blood [facility]) Creatinine 4.78 Above high normal MEDGEN (St [Interpretation] mg/dL Juan C's in Urine [facility]) BUN/CREATININE 8 (calc) Normal (applies MEDGEN (S t RATIO to non-numeric Juan C's results) [facility]) PROTEIN, TOTAL 8.1 g/dL Normal (applies MEDGEN (S t to non-numeric Juan C's results) [facility]) Calcium 7.6 Below low normal MEDGEN (St [Moles/volume] mg/dL Juan C's in Urine [facility]) collected for unspecified duration Microalbumin 3.5 g/dL Below low normal MEDGEN (St [Mass/time] in Juan C's Urine collected [facility]) for unspecified duration Globulin 4.6 g/dL Above high normal MEDGEN (St [Mass/time] in (calc) Juan C's 24 hour Urine [facility]) ALBUMIN/GLOBULIN 0.8 Below low normal MEDGEN (St RATIO (calc) [facility], ) BILIRUBIN,TOTAL 0.3 Normal (applies MEDGEN ( St mg/dL to non-numeric Juan C's results) [facility]) Alkaline 71 U/L Normal (applies MEDGEN (St phosphatase to non-numeric Juan C's [Enzymatic results) [facility]) activity/volume] in Serum, Plasma or Blood AST 37 U/L Above high normal [facility] ([facility], ) ALT 36 U/L Normal (applies MEDGEN (St to non-numeric Juan C's results) [facility]) EGFR NON AFR 11 Below low normal MEDGEN (St NAMIBIAN mL/min/1 Juan C's .73m2 Medical, ) EGFR 13 Below low normal MEDGEN (St NAMIBIAN mL/min/1 Juan C's .73m2 [facility], ) ID Date Data Source [id number] 04/28/2020 12:00:00 AM EDT [facility] ([facility], ) Name Value Range Interpretation Description Data Sup porting Code Source(s) Document(s ) VITAMIN 30 ng/mL Normal (applies to MEDGEN (St D,25-OH,TOTA non-numeric Juan C's L,IA results) Medical, ) ID Date Data Source [id number] 04/28/2020 12:00:00 AM EDT MEDGEN ([facility], ) Name Value Range Interpretation Description [...] Body fluid by PC) Automated test strip Nitrite Negative Normal (applies MEDGEN (St [Presence] in to non-numeric Juan C's Urine by Test results) Medical, strip PC) WBC 0-5 Normal (applies MEDGEN (St [...] results) [facility], [facility]) ID Date Data Source [id number] 04/28/2020 12:00:00 AM EDT MEDGEN ([facility] [...] MEDGEN (St to non-numeric Juan C's results) [facility]) NEUTROPHILS, 6749 Normal (applies MEDGEN (St ABSOLUTE cells/uL to non-numeric Juan C's results) [facility]) BAND,ABSOLUTE 67 Normal (applies MEDGEN (St cells/uL to non-numeric Juan C's results) [facility]) LYMPHOCYTES, 2464 Normal (applies MEDGEN (St ABSOLUTE cells/uL to non-numeric Juan C's results) [facility]) EOSINOPHILS, 278 Normal (applies MEDGEN (St ABSOLUTE cells/uL to non-numeric Juan C's results) [facility]) MONOCYTES, 844 Normal (applies MEDGEN (St ABSOLUTE cells/uL to non-numeric Juan C's results) [facility]) BASOPHILS, 67 Normal (applies MEDGEN (St ABSOLUTE cells/uL to non-numeric [facility]'s results) [facility]) METAMYELOCYTES,A 278 Above high normal MEDGE N (St BSOLUTE cells/uL [facility]) MYELOCYTES,ABSOL 355 Above high normal MEDGE N (St [facility] IRA cells/uL [facility]) NUCLEATED RBC 3 /100 Above high normal MEDGEN ( St WBC [facility]) NUCLEATED 278 Above high normal MEDGEN (St RBC,ABSOLUTE cells/uL [facility]) MORPHOLOGICAL Normal (applies MEDGEN (St REVIEW to non-numeric [facility]'s results) [facility]) ID Date Data Source [id number] 04/28/2020 12:00:00 AM EDT MEDGEN ([facility], ) Name Value Range Interpretation Description Data Sup porting Code Source(s) Document(s ) WBC 11.1 Above high normal MEDGEN (St Thousand Juan C's /[facility]) RBC 2.50 Below low normal MEDGEN (St Million/ Juan C's [facility]) Hemoglobin 8.3 g/dL Below low normal MEDGEN (St [Mass/volume] in [facility] Mixed venous [facility]) blood by Oximetry Hematocrit [Pure 24.9 % Below low normal MEDGEN (St volume fraction] [facility] of Blood by [facility]) Automated count MCV 99.6 fL Normal (applies MEDGEN (St to non-numeric Juan C's results) [facility]) MCH 33.2 pg Above high normal MEDGEN ([facility], ) MCHC 33.3 Normal (applies MEDGEN (St g/dL to non-numeric Juan C's results) [facility], [facility]) RDW 18.2 % Above high normal [facility] ([facility], ) PLATELET COUNT 214 Normal (applies MEDGEN (S t Thousand to non-numeric Juan C's /uL results) [facility], PC) MPV 10.1 fL Normal (applies MEDGEN (St to non-numeric Juan C's results) [facility], PC) DIFFERENTIAL Normal (applies MEDGEN (St to non-numeric Juan C's results) [facility], [facility]) ID Date Data Source [id number] 04/28/2020 12:00:00 AM EDT MEDGEN ([facility], ) Name Value Range Interpretation Description Data Sup porting Code Source(s) Document(s ) PHOSPHATE ( 2.5 mg/dL Normal (applies to MEDGEN (St PHOSPHORUS) non-numeric Juan C's results) [facility], [facility]) ID Date Data Source [id number] 04/28/2020 12:00:00 AM EDT MEDGEN ([facility], ) Name Value Range Interpretation Description Data Sup porting Code Source(s) Document(s ) VITAMIN 30 ng/mL Normal (applies to MEDGEN (St D,25-OH,TOTA non-numeric Juan C's L,IA results) [facility]) ID Date Data Source [id number] 04/28/2020 12:00:00 AM EDT MEDGEN ([facility], ) Name Value Range Interpretation Description [...] (applies MEDGEN (St EPITHELIAL CELLS to non-numeric Jua Nc's results) [facility], PC) Bacteria None Seen Normal (applies MEDGEN (St [Presence] in to non-numeric Juan C's Prostatic fluid results) Medical, by Light PC) microscopy HYALINE CAST None Seen Normal (applies MEDGEN (St to non-numeric Juan C's results) [facility], [facility]) ID Date Data Source [id number] 04/28/2020 12:00:00 AM EDT MEDGEN (St [facility] [...] MEDGEN (St to non-numeric Juan C's results) [facility]) METAMYELOCYTES,% 2.5 % Normal (applies MEDGEN (St to non-numeric Juan C's results) [facility]) NEUTROPHILS, 6749 Normal (applies MEDGEN (St ABSOLUTE cells/uL to non-numeric Juan C's results) [facility]) BAND,ABSOLUTE 67 Normal (applies MEDGEN (St cells/uL to non-numeric Juan C's results) [facility]) LYMPHOCYTES, 2464 Normal (applies MEDGEN (St ABSOLUTE cells/uL to non-numeric Juan C's results) [facility]) MONOCYTES, 844 Normal (applies MEDGEN (St ABSOLUTE cells/uL to non-numeric Juan C's results) [facility]) EOSINOPHILS, 278 Normal (applies MEDGEN (St ABSOLUTE cells/uL to non-numeric Juan C's results) [facility]) BASOPHILS, 67 Normal (applies MEDGEN (St ABSOLUTE cells/uL to non-numeric Juan C's results) [facility]) MYELOCYTES,ABSOL 355 Above high normal MEDGE N (St [facility] IRA cells/uL [facility]) METAMYELOCYTES,A 278 Above high normal MEDGE N (St BSOLUTE cells/uL [facility]) NUCLEATED RBC 3 /100 Above high normal MEDGEN ( St WBC [facility]) NUCLEATED 278 Above high normal MEDGEN (St RBC,ABSOLUTE cells/uL [facility]) MORPHOLOGICAL Normal (applies MEDGEN (St REVIEW to non-numeric [facility]'s results) [facility]) ID Date Data Source [id number] 04/28/2020 12:00:00 AM EDT MEDGEN ([facility]) Name Value Range Interpretation Description Data Sup porting Code Source(s) Document(s ) WBC 11.1 Above high normal MEDGEN (St Thousand Juan C's /[facility]) RBC 2.50 Below low normal MEDGEN (St Million/ Juan C's [facility]) Hemoglobin 8.3 g/dL Below low normal MEDGEN (St [Mass/volume] in [facility] Mixed venous [facility]) blood by Oximetry Hematocrit [Pure 24.9 % Below low normal MEDGEN (St volume fraction] [facility] of Blood by [facility]) Automated count MCV 99.6 fL Normal (applies MEDGEN (St to non-numeric Juan C's results) Medical, ) MCH 33.2 pg Above high normal [facility] ([facility], ) MCHC 33.3 Normal (applies MEDGEN (St g/dL to non-numeric Juan C's results) [facility], ) RDW 18.2 % Above high normal MEDGEN ([facility], ) PLATELET COUNT 214 Normal (applies MEDGEN (S t Thousand to non-numeric Juan C's /uL results) [facility], ) MPV 10.1 fL Normal (applies MEDGEN (St to non-numeric Juan C's results) [facility], ) DIFFERENTIAL Normal (applies MEDGEN (St to non-numeric Juan C's results) [facility], ) ID Date Data Source [id number] 04/28/2020 12:00:00 AM EDT [facility]) Name Value Range Interpretation Description Data Sup porting Code Source(s) Document(s ) PHOSPHATE ( 2.5 mg/dL Normal (applies to MEDGEN (St PHOSPHORUS) non-numeric Juan C's results) [facility], ) ID Date Data Source [id number] 04/28/2020 12:00:00 AM EDT [facility]) Name Value Range Interpretation Code Description Data Lisa rce(s) Supporting Document(s ) URIC ACID 5.0 mg/dL Normal (applies to MEDGEN (St non-numeric Juan C's results) [facility], ) ID Date Data Source [id number] 04/28/2020 12:00:00 AM EDT [facility] ([facility]) Name Value Range Interpretation Description Data Sup porting Code Source(s) Document(s ) Glucose 92 mg/dL Normal (applies MEDGEN (St [Mass/volume] in to non-numeric Juan C's Urine collected results) [facility], ) for unspecified duration Sodium 133 Below low normal MEDGEN (St [Moles/volume] mmol/L Juan C's in Serum, Plasma [facility], ) or Blood Potassium 5.2 Normal (applies MEDGEN (St [Mass/volume] in mmol/L to non-numeric Juan C's Blood results) [facility], ) Chloride 109 Normal (applies MEDGEN (St [Moles/volume] mmol/L to non-numeric Juan C's in Serum, Plasma results) [facility], ) or Blood Carbon dioxide 20 Normal (applies MEDGEN (S t [VFr/PPres] in mmol/L to non-numeric Juan C's Gas delivery results) [facility]) system Urea nitrogen 36 mg/dL Above high normal MEDGEN ( St [Moles/volume] Juan C's in Blood [facility]) Creatinine 4.78 Above high normal MEDGEN (St [Interpretation] mg/dL Juan C's in Urine [facility]) BUN/CREATININE 8 (calc) Normal (applies MEDGEN (S t RATIO to non-numeric Juan C's results) [facility]) Calcium 7.6 Below low normal MEDGEN (St [Moles/volume] mg/dL Juan C's in Urine [facility]) collected for unspecified duration PROTEIN, TOTAL 8.1 g/dL Normal (applies MEDGEN (S t to non-numeric Juan C's results) [facility]) Microalbumin 3.5 g/dL Below low normal MEDGEN (St [Mass/time] in [facility] Urine collected [facility]) for unspecified duration Globulin 4.6 g/dL Above high normal MEDGEN (St [Mass/time] in (calc) [facility]'s 24 hour Urine [facility]) ALBUMIN/GLOBULIN 0.8 Below low normal MEDGEN (St RATIO (calc) [facility]) BILIRUBIN,TOTAL 0.3 Normal (applies MEDGEN ( St mg/dL to non-numeric Juan C's results) [facility]) Alkaline 71 U/L Normal (applies MEDGEN (St phosphatase to non-numeric Juan C's [Enzymatic results) [facility]) activity/volume] in Serum, Plasma or Blood AST 37 U/L Above high normal [facility] ([facility], ) ALT 36 U/L Normal (applies MEDGEN (St to non-numeric Juan C's results) [facility]) EGFR NON AFR 11 Below low normal MEDGEN (St NAMIBIAN mL/min/1 Juan C's .73m2 [facility]) EGFR 13 Below low normal MEDGEN (St NAMIBIAN mL/min/1 Juan C's .73m2 [facility]) ID Date Data Source [id number] 04/28/2020 12:00:00 AM EDT [facility] ([facility]) Name Value Range Interpretation Description Data Sup porting Code Source(s) Document(s ) WBC 11.1 Above high normal MEDGEN (St Thousand/ Juan C's uL [facility]) RBC 2.50 Below low normal MEDGEN (St Million/u Juan C's L [facility], ) Hematocrit 24.9 % Below low normal MEDGEN (St [Pure volume Juan C's fraction] of [facility], ) Blood by Automated count Hemoglobin 8.3 g/dL Below low normal MEDGEN (St [Mass/volume] Juan C's in Mixed [facility], ) venous blood by Oximetry MCV 99.6 fL Normal (applies to MEDGEN (St non-numeric Juan C's results) [facility], ) MCH 33.2 pg Above high normal [facility] ([facility], ) RDW 18.2 % Above high normal [facility] ([facility], ) MCHC 33.3 g/dL Normal (applies to MEDGEN (St non-numeric Juan C's results) [facility], ) PLATELET COUNT 214 Normal (applies to MEDGEN (St Thousand/ non-numeric Juan C's uL results) [facility], ) MPV 10.1 fL Normal (applies to MEDGEN (St non-numeric Juan C's results) [facility]) ID Date Data Source [id number] 04/28/2020 12:00:00 AM EDT MEDGEN ([facility], ) Name Value Range Interpretation Description Data Sup porting Code Source(s) Document(s ) PHOSPHATE ( 2.5 mg/dL Normal (applies to MEDGEN (St PHOSPHORUS) non-numeric Juan C's results) [facility]) ID Date Data Source [id number] 04/28/2020 12:00:00 AM EDT [facility]GEN ([facility], ) Name Value Range Interpretation Code Description Data Lisa rce(s) Supporting Document(s ) URIC ACID 5.0 mg/dL Normal (applies to MEDGEN (St non-numeric Juan C's results) [facility], ) ID Date Data Source [id number] 04/28/2020 12:00:00 AM EDT MEDGEN ([facility], ) Name Value Range Interpretation Description Data Sup porting Code Source(s) Document(s ) Glucose 92 mg/dL Normal (applies MEDGEN (St [Mass/volume] in to non-numeric Juan C's Urine collected results) [facility], ) for unspecified duration Sodium 133 Below low normal MEDGEN (St [Moles/volume] mmol/L Juan C's in Serum, Plasma [facility]) or Blood Potassium 5.2 Normal (applies MEDGEN (St [Mass/volume] in mmol/L to non-numeric Juan C's Blood results) [facility]) Chloride 109 Normal (applies MEDGEN (St [Moles/volume] mmol/L to non-numeric Juan C's in Serum, Plasma results) [facility]) or Blood Carbon dioxide 20 Normal (applies MEDGEN (S t [VFr/PPres] in mmol/L to non-numeric Juan C's Gas delivery results) [facility]) system Urea nitrogen 36 mg/dL Above high normal MEDGEN ( St [Moles/volume] Juan C's in Blood [facility]) Creatinine 4.78 Above high normal MEDGEN (St [Interpretation] mg/dL Juan C's in Urine [facility]) BUN/CREATININE 8 (calc) Normal (applies MEDGEN (S t RATIO to non-numeric Juan C's results) [facility]) Calcium 7.6 Below low normal MEDGEN (St [Moles/volume] mg/dL Juan C's in Urine [facility]) collected for unspecified duration PROTEIN, TOTAL 8.1 g/dL Normal (applies MEDGEN (S t to non-numeric Juan C's results) [facility]) Microalbumin 3.5 g/dL Below low normal MEDGEN (St [Mass/time] in Juan C's Urine collected [facility]) for unspecified duration Globulin 4.6 g/dL Above high normal MEDGEN (St [Mass/time] in (calc) Juan C's 24 hour Urine [facility]) ALBUMIN/GLOBULIN 0.8 Below low normal MEDGEN (St RATIO (calc) [facility]) BILIRUBIN,TOTAL 0.3 Normal (applies MEDGEN ( St mg/dL to non-numeric Juan C's results) [facility]) Alkaline 71 U/L Normal (applies MEDGEN (St phosphatase to non-numeric Juan C's [Enzymatic results) [facility]) activity/volume] in Serum, Plasma or Blood AST 37 U/L Above high normal MEDGEN ([facility], ) ALT 36 U/L Normal (applies MEDGEN (St to non-numeric Juan C's results) [facility]) EGFR NON AFR 11 Below low normal MED[facility] (St NAMIBIAN mL/min/1 Juan C's .73m2 [facility]) EGFR 13 Below low normal [facility] (St NAMIBIAN mL/min/1 Juan C's .73m2 Medical, ) ID Date Data Source [id number] 04/28/2020 12:00:00 AM EDT [facility] ([facility], ) Name Value Range Interpretation Description Data Sup porting Code Source(s) Document(s ) VITAMIN 30 ng/mL Normal (applies to [facility] (St D,25-OH,TOTA non-numeric Juan C's L,IA results) Medical, ) ID Date Data Source [id number] 04/28/2020 12:00:00 AM EDT [facility] ([facility] [...] C's Prostatic fluid results) Medical, by Light ) microscopy HYALINE CAST None Seen Normal (applies [facility] (St to non-numeric Juan C's results) Medical, ) ID Date Data Source [id number] 04/28/2020 12:00:00 AM EDT [facility] ([facility], ) Name Value Range Interpretation Description Data Sup porting Code Source(s) Document(s ) SEGMENTED 60.8 % Normal (applies to [facility] (St NEUTROPHILS,% non-numeric Juan C's results) Medical, PC) MATURE 22.2 % Normal (applies to [facility] (St LYMPHOCYTES,% non-numeric Juan C's results) Medical, ) MONOCYTES,% 7.6 % Normal (applies to [facility] (S t non-numeric Juan C's results) Medical, PC) EOSINOPHILS,% 2.5 % Normal (applies to [facility] (St non-numeric Juan C's results) Medical, PC) BASOPHILS,% 0.6 % Normal (applies to [facility] (S t non-numeric Juan C's results) Medical, PC) MYELOCYTES,% 3.2 % Normal (applies to [facility] ( St non-numeric Juan C's results) Medical, PC) BANDS,% 0.6 % Normal (applies to [facility] (St non-numeric Juan C's results) Medical, PC) METAMYELOCYTE 2.5 % Normal (applies to [facility] (St S,% non-numeric Juan C's results) Medical, PC) NEUTROPHILS, 6749 Normal (applies to [facility] ( St ABSOLUTE cells/uL non-numeric Juan C's results) Medical, ) BAND,ABSOLUTE 67 Normal (applies to [facility] (St cells/uL non-numeric Juan C's results) Medical, ) LYMPHOCYTES, 2464 Normal (applies to [facility] ( St ABSOLUTE cells/uL non-numeric Juan C's results) Medical, ) MONOCYTES, 844 Normal (applies to [facility] (St ABSOLUTE cells/uL non-numeric Juan C's results) Medical, PC) EOSINOPHILS, 278 Normal (applies to [facility] ( St ABSOLUTE cells/uL non-numeric Juan C's results) Medical, ) MYELOCYTES,AB 355 Above high normal [facility] ( St SOLUTE cells/uL Juan C's [facility], ) BASOPHILS, 67 Normal (applies to [facility] (St ABSOLUTE cells/uL non-numeric Juan C's results) [facility]) METAMYELOCYTE 278 Above high normal [facility] ( St S,ABSOLUTE cells/uL [facility]'s [facility], ) NUCLEATED RBC 3 /100 Above high normal [facility] ( St WBC [facility]'s [facility], ) NUCLEATED 278 Above high normal [facility] (St RBC,ABSOLUTE cells/uL [facility]'s [facility], ) ID Date Data Source [id number] 04/20/2020 02:15:00 PM EDT [facility] Name Value Range Interpretation Description Data Sup porting Code Source(s) Document(s ) SARS [facility] coronavirus 2 RNA This lab was ordered by [facility] and reported by [facility]. ID Date Data Source [id number] 04/17/2020 12:00:00 AM EDT [facility] ([facility], ) Name Value Range Interpretation Code Description Data Supporting Source(s) Document(s ) Albumin, 741.5 Normal (applies to [facility] (St Urine ug/mL non-numeric Juan C's results) [facility], ) ID Date Data Source [id number] 04/17/2020 12:00:00 AM EDT [facility] ([facility], ) Name Value Range Interpretation Description Data Sup porting Code Source(s) Document(s ) INR 1.1 Normal (applies [facility] (St to non-numeric Juan C's results) Medical, ) Prothrombin 11.4 sec Normal (applies [facility] (St Time to non-numeric Juan C's results) [facility], ) aPTT 28 sec Normal (applies [facility] (St to non-numeric Juan C's results) Medical, ) ID Date Data Source [id number] 04/17/2020 12:00:00 AM EDT [facility] ([facility], ) Name Value Range Interpretation Code [...] C's Medical, ) ID Date Data Source [id number] 04/17/2020 12:00:00 AM EDT [facility] ([facility] [...] to non-numeric Juan C's Urine collected results) [facility], for unspecified PC) duration Ketones Negative [...] results) Medical, ) ID Date Data Source [id number] 04/17/2020 12:00:00 AM EDT [facility] ([facility] [...] by Light microscopy ID Date Data Source [id number] 04/17/2020 12:00:00 AM EDT [facility] ([facility] [...] Serum or Plasma results) Medical, PC) Potassium 4.8 Normal (applies [facility] (St [Mass/volume] in mmol/L to non-numeric Juan C's Blood results) Medical, PC) Chloride 107 Above high [facility] (St [Moles/volume] in mmol/L normal Juan C's Serum or Plasma Medical, PC) Carbon dioxide, 19 Below low [...] in normal Juan C's Serum or Plasma [facility]) Globulin, Total 4.7 g/dL Above high [facility] (St normal [facility], ) A/G Ratio 0.9 Below low normal [facility] ([facility], ) Bilirubin.total 0.2 Normal (applies [facility] ( St [Mass/volume] in mg/dL to non-numeric Juan C's Serum or Plasma results) [facility], ) Alkaline 75 IU/L Normal (applies [...] Serum or Plasma ID Date Data Source [id number] 04/17/2020 12:00:00 AM EDT [facility] ([facility], ) Name Value Range Interpretation Description Data Sup porting Code Source(s) Document(s ) Leukocytes 11.4 Above high normal [facility] (St [#/volume] in x10E3/uL Juan C's Blood by [facility]) Automated count Erythrocytes 2.79 Below low normal [facility] (St [#/volume] in x10E6/uL Juan C's Blood by [facility]) Automated count Hemoglobin 9.3 g/dL Below low normal [facility] (St [Mass/volume] in Juan C's Blood [facility]) Hematocrit 27.3 % Below low normal [facility] (St [Volume Juan C's Fraction] of [facility]) Blood by Automated count MCV 98 fL Above high normal [facility] ([facility], ) MCH 33.3 pg Above high normal [facility] ([facility], ) MCHC 34.1 Normal (applies [facility] (St g/dL to non-numeric Juan C's results) [facility], ) RDW 17.5 % Above high normal [facility] ([facility], ) Neutrophils [#] 71 % Normal (applies [facility] ( St in Body fluid by to non-numeric Juan C's Manual count results) [facility], ) Platelets 146 Below low normal [facility] (St [#/area] in x10E3/uL Juan C's Blood by [facility], ) Microscopy high power field Lymphs 12 % Normal (applies [facility] (St to non-numeric Juan C's results) [facility], ) Monocytes 9 % Normal (applies [facility] (St [#/volume] in to non-numeric Juan C's Cord blood results) [facility], ) Eos 4 % Normal (applies [facility] (St to non-numeric Juan C's results) [facility], ) Basos 0 % Normal (applies [facility] (St to non-numeric Juan C's results) [facility], ) Neutrophils 8.2 Above high normal [facility] (St (Absolute) x10E3/uL Juan C's [facility], ) Lymphs 1.4 Normal (applies [facility] (St (Absolute) x10E3/uL to non-numeric Juan C's results) [facility], ) Monocytes(Absolu 1.0 Above high normal MEDGE N (St te) x10E3/uL Juan C's [facility], ) Eos (Absolute) 0.4 Normal (applies [facility] (S t x10E3/uL to non-numeric Juan C's results) [facility], ) Baso (Absolute) 0.0 Normal (applies [facility] ( St x10E3/uL to non-numeric Juan C's results) [facility], ) Immature 4 % Normal (applies [facility] (St Granulocytes to non-numeric Juan C's results) [facility], ) Immature Grans 0.4 Above high normal [facility] (St (Abs) x10E3/uL Juan C's [facility], ) NRBC 1 % Above high normal [facility] ([facility], ) ID Date Data Source [id number] 04/17/2020 12:00:00 AM EDT [facility] (St [facility], ) Name Value Range Interpretation Code Description Data Supporting Source(s) Document(s ) Albumin, 741.5 Normal (applies to [facility] (St Urine ug/mL non-numeric Juan C's results) [facility], ) ID Date Data Source [id number] 04/17/2020 12:00:00 AM EDT [facility] ([facility] [...] results) Medical, PC) ID Date Data Source [id number] 04/17/2020 12:00:00 AM EDT [facility] ([facility], ) Name Value Range Interpretation Code Description Data Supporting Source(s) Document(s ) Creatinine 74.9 mg/dL Normal (applies to [facility] (S t , Urine non-numeric Juan C's results) Medical, PC) Protein,To 185.1 Normal (applies to [facility] (St ruth,Urine mg/dL non-numeric Juan C's results) Medical, PC) Protein/Cr 2471 mg/g Above high normal [facility] (St eat Ratio creat Juan C's [facility], ) ID Date Data Source [id number] 04/17/2020 12:00:00 AM EDT [facility] ([facility] [...] results) Medical, ) ID Date Data Source [id number] 04/17/2020 12:00:00 AM EDT [facility] ([facility], ) Name Value Range Interpretation Description [...] by Light microscopy ID Date Data Source [id number] 04/17/2020 12:00:00 AM EDT [facility] ([facility], ) Name Value Range Interpretation Description Data Sup porting Code Source(s) Document(s ) Glucose 89 mg/dL Normal (applies [facility] (St [Mass/volume] in to non-numeric Juan C's Urine collected for results) Medical, unspecified PC) duration Urea nitrogen 47 mg/dL Above high [facility] (St [Mass/volume] in normal Juan C's Serum or Plasma Medical, ) Creatinine 4.60 Above high [facility] (St [Interpretation] in mg/dL normal Juan C's Urine Medical, ) eGFR If NonAfricn 12 Below low normal MEDGE N (St Am mL/min/1 [facility]'s .73 [facility], ) eGFR If Africn Am 13 Below low normal MEDGE N (St mL/min/1 [facility]'s .73 [facility], ) BUN/Creatinine 10 Normal (applies [facility] (S t Ratio to non-numeric Juan C's results) Medical, ) Sodium 136 Normal (applies [facility] (St [Moles/volume] in mmol/L to non-numeric Juan C's Serum or Plasma results) Medical, ) Potassium 4.8 Normal (applies [facility] (St [Mass/volume] in mmol/L to non-numeric Juan C's Blood results) [facility], ) Carbon dioxide, 19 Below low normal [facility] (St total mmol/L Juan C's [Moles/volume] in Medical, Serum or Plasma PC) Chloride 107 Above high [facility] (St [Moles/volume] in mmol/L normal Juan C's Serum or Plasma [facility], ) Calcium 8.6 Normal (applies [facility] (St [Moles/volume] in mg/dL to non-numeric Juan C's Urine collected for results) Medical, unspecified PC) duration Protein 8.7 g/dL Above high [facility] (St [Mass/volume] in normal Juan C's Serum or Plasma [facility], ) Microalbumin 4.0 g/dL Normal (applies [facility] (St [Mass/time] in to non-numeric Juan C's Urine collected for results) [facility], unspecified ) duration Globulin, Total 4.7 g/dL Above high [facility] (St normal Juan C's [facility], ) A/G Ratio 0.9 Below low normal [facility] ([facility], ) Bilirubin.total 0.2 Normal (applies [facility] ( St [Mass/volume] in mg/dL to non-numeric Juan C's Serum or Plasma results) Medical, ) Alkaline 75 IU/L Normal (applies [facility] (St phosphatase to non-numeric Juan C's [Enzymatic results) Medical, activity/volume] in PC) Serum, Plasma or Blood Aspartate 20 IU/L Normal (applies [facility] (St aminotransferase to non-numeric Juan C's [Enzymatic results) Medical, activity/volume] in PC) Serum or Plasma Alanine 57 IU/L Above high [facility] (St aminotransferase normal Juan C's [Enzymatic Medical, activity/volume] in PC) Serum or Plasma ID Date Data Source [id number] 04/17/2020 12:00:00 AM EDT [facility] ([facility], ) Name Value Range Interpretation Description Data Sup porting Code Source(s) Document(s ) Leukocytes 11.4 Above high normal [facility] (St [#/volume] in x10E3/uL Juan C's Blood by [facility], ) Automated count Hemoglobin 9.3 g/dL Below low normal [facility] (St [Mass/volume] in [facility] Blood [facility], ) Erythrocytes 2.79 Below low normal [facility] (St [#/volume] in x10E6/uL [facility] Blood by [facility]) Automated count Hematocrit 27.3 % Below low normal [facility] (St [Volume Juan C's Fraction] of [facility], ) Blood by Automated count MCV 98 fL Above high normal [facility] ([facility], ) MCHC 34.1 Normal (applies [facility] (St g/dL to non-numeric Juan C's results) [facility]) MCH 33.3 pg Above high normal [facility] ([facility], ) RDW 17.5 % Above high normal [facility] ([facility], ) Platelets 146 Below low normal [facility] (St [#/area] in x10E3/uL [facility]'s Blood by [facility], ) Microscopy high power field Neutrophils [#] 71 % Normal (applies [facility] ( St in Body fluid by to non-numeric Juan C's Manual count results) [facility], ) Lymphs 12 % Normal (applies [facility] (St to non-numeric Juan C's results) [facility]) Monocytes 9 % Normal (applies [facility] (St [#/volume] in to non-numeric Juan C's Cord blood results) [facility]) Eos 4 % Normal (applies [facility] (St to non-numeric Juan C's results) [facility]) Basos 0 % Normal (applies [facility] (St to non-numeric Juan C's results) [facility]) Lymphs 1.4 Normal (applies [facility] (St (Absolute) x10E3/uL to non-numeric Juan C's results) [facility]) Neutrophils 8.2 Above high normal [facility] (St (Absolute) x10E3/uL [facility], ) Monocytes(Absolu 1.0 Above high normal MEDGE N (St te) x10E3/uL Juan C's [facility], ) Eos (Absolute) 0.4 Normal (applies [facility] (S t x10E3/uL to non-numeric Juan C's results) Medical, ) Baso (Absolute) 0.0 Normal (applies [facility] ( St x10E3/uL to non-numeric Juan C's results) Medical, ) Immature Grans 0.4 Above high normal [facility] (St (Abs) x10E3/uL Juan C's [facility], ) Immature 4 % Normal (applies [facility] (St Granulocytes to non-numeric Juan C's results) [facility], ) NRBC 1 % Above high normal [facility] ([facility], ) ID Date Data Source [id number] 04/17/2020 12:00:00 AM EDT [facility] ([facility], ) Name Value Range Interpretation Code Description Data Supporting Source(s) Document(s ) Albumin, 741.5 Normal (applies to [facility] (St Urine ug/mL non-numeric Juan C's results) [facility], ) ID Date Data Source [id number] 04/17/2020 12:00:00 AM EDT [facility] ([facility], ) Name Value Range Interpretation Description Data Sup porting Code Source(s) Document(s ) INR 1.1 Normal (applies [facility] (St to non-numeric Juan C's results) [facility], ) Prothrombin 11.4 sec Normal (applies [facility] (St Time to non-numeric Juan C's results) [facility], ) aPTT 28 sec Normal (applies [facility] (St to non-numeric Juan C's results) [facility], ) ID Date Data Source [id number] 04/17/2020 12:00:00 AM EDT [facility] ([facility], ) Name Value Range Interpretation Code Description Data Supporting Source(s) Document(s ) Creatinine 74.9 mg/dL Normal (applies to [facility] (S t , Urine non-numeric Juan C's results) [facility], ) Protein,To 185.1 Normal (applies to [facility] (St ruth,Urine mg/dL non-numeric Juan C's results) [facility], ) Protein/Cr 2471 mg/g Above high normal [facility] (St eat Ratio creat [facility], ) ID Date Data Source [id number] 04/17/2020 12:00:00 AM EDT [facility] ([facility] [...] results) Medical, PC) ID Date Data Source [id number] 04/17/2020 12:00:00 AM EDT [facility] ([facility] [...] by Light microscopy ID Date Data Source [id number] 04/17/2020 12:00:00 AM EDT [facility] ([facility], ) Name Value Range Interpretation Description Data Sup porting Code Source(s) Document(s ) Glucose 89 mg/dL Normal (applies [facility] (St [Mass/volume] in to non-numeric Juan C's Urine collected for results) Medical, unspecified ) duration Urea nitrogen 47 mg/dL Above high [facility] (St [Mass/volume] in normal Juan C's Serum or Plasma [facility], ) Creatinine 4.60 Above high [facility] (St [Interpretation] in mg/dL normal Juan C's Urine Medical, ) eGFR If NonAfricn 12 Below low normal MEDGE N (St Am mL/min/1 Juan C's .73 [facility], ) eGFR If Africn Am 13 Below low normal MEDGE N (St mL/min/1 Juan C's .73 [facility], ) BUN/Creatinine 10 Normal (applies [facility] (S t Ratio to non-numeric Juan C's results) Medical, ) Sodium 136 Normal (applies [facility] (St [Moles/volume] in mmol/L to non-numeric Juan C's Serum or Plasma results) Medical, ) Potassium 4.8 Normal (applies [facility] (St [Mass/volume] in mmol/L to non-numeric Juan C's Blood results) Medical, ) Chloride 107 Above high [facility] (St [Moles/volume] in mmol/L normal Juan C's Serum or Plasma [facility], ) Carbon dioxide, 19 Below low [...] non-numeric Juan C's Urine collected for results) [facility], unspecified ) duration Globulin, Total 4.7 g/dL Above high [facility] (St normal [facility], ) A/G Ratio 0.9 Below low normal [facility] ([facility], ) Bilirubin.total 0.2 Normal (applies [facility] ( St [Mass/volume] in mg/dL to non-numeric Juan C's Serum or Plasma results) [facility], ) Alkaline 75 IU/L Normal (applies [facility] (St phosphatase to non-numeric Juan C's [Enzymatic results) [facility], activity/volume] in ) Serum, Plasma or Blood Aspartate 20 IU/L Normal (applies [facility] (St aminotransferase to non-numeric Juan C's [Enzymatic results) [facility], activity/volume] in ) Serum or Plasma Alanine 57 IU/L Above high [facility] (St aminotransferase normal [facility]'s [Enzymatic Medical, activity/volume] in ) Serum or Plasma ID Date Data Source [id number] 04/17/2020 12:00:00 AM EDT [facility] ([facility], ) Name Value Range Interpretation Description Data Sup porting Code Source(s) Document(s ) Leukocytes 11.4 Above high normal [facility] (St [#/volume] in x10E3/uL Juan C's Blood by [facility], ) Automated count Erythrocytes 2.79 Below low normal [facility] (St [#/volume] in x10E6/uL Juan C's Blood by [facility], ) Automated count Hemoglobin 9.3 g/dL Below low normal [facility] (St [Mass/volume] in [facility] Blood [facility], ) Hematocrit 27.3 % Below low normal [facility] (St [Volume Juan C's Fraction] of [facility], ) Blood by Automated count MCV 98 fL Above high normal [facility] ([facility], ) MCH 33.3 pg Above high normal [facility] ([facility], ) MCHC 34.1 Normal (applies [facility]GEN (St g/dL to non-numeric Juan C's results) [facility], ) RDW 17.5 % Above high normal [facility] ([facility], ) Platelets 146 Below low normal [facility] (St [#/area] in x10E3/uL Juan C's Blood by [facility], ) Microscopy high power field Neutrophils [#] 71 % Normal (applies [facility] ( St in Body fluid by to non-numeric Juan C's Manual count results) [facility], ) Lymphs 12 % Normal (applies [facility] (St to non-numeric Juan C's results) [facility], ) Monocytes 9 % Normal (applies [facility] (St [#/volume] in to non-numeric Juan C's Cord blood results) [facility], ) Eos 4 % Normal (applies [facility] (St to non-numeric Juan C's results) [facility], ) Basos 0 % Normal (applies [facility] (St to non-numeric Juan C's results) [facility], ) Lymphs 1.4 Normal (applies [facility] (St (Absolute) x10E3/uL to non-numeric Juan C's results) [facility]) Neutrophils 8.2 Above high normal [facility] (St (Absolute) x10E3/uL Juan C's [facility], ) Monocytes(Absolu 1.0 Above high normal MEDGE N (St te) x10E3/uL Juan C's [facility], ) Eos (Absolute) 0.4 Normal (applies [facility] (S t x10E3/uL to non-numeric Juan C's results) [facility], ) Baso (Absolute) 0.0 Normal (applies [facility] ( St x10E3/uL to non-numeric Juan C's results) [facility], ) Immature 4 % Normal (applies [facility] (St Granulocytes to non-numeric Juan C's results) [facility], ) Immature Grans 0.4 Above high normal [facility] (St (Abs) x10E3/uL Juan C's [facility], ) NRBC 1 % Above high normal [facility] ([facility], ) ID Date Data Source [id number] 04/17/2020 12:00:00 AM EDT [facility] ([facility], ) Name Value Range Interpretation Code Description Data Supporting Source(s) Document(s ) Albumin, 741.5 Normal (applies to [facility] (St Urine ug/mL non-numeric Juan C's results) [facility], ) ID Date Data Source [id number] 04/17/2020 12:00:00 AM EDT [facility] ([facility], ) Name Value Range Interpretation Description Data Sup porting Code Source(s) Document(s ) INR 1.1 Normal (applies [facility] (St to non-numeric Juan C's results) Medical, ) Prothrombin 11.4 sec Normal (applies [facility] (St Time to non-numeric Juan C's results) Medical, ) aPTT 28 sec Normal (applies [facility] (St to non-numeric Juan C's results) Medical, ) ID Date Data Source [id number] 04/17/2020 12:00:00 AM EDT [facility] ([facility], ) Name Value Range Interpretation Code Description Data Supporting Source(s) Document(s ) Creatinine 74.9 mg/dL Normal (applies to [facility] (S t , Urine non-numeric Juan C's results) Medical, ) Protein,To 185.1 Normal (applies to [facility] (St ruth,Urine mg/dL non-numeric Juan C's results) Medical, ) Protein/Cr 2471 mg/g Above high normal [facility] (St eat Ratio creat Juan C's [facility], ) ID Date Data Source [id number] 04/17/2020 12:00:00 AM EDT [facility] ([facility], ) Name Value Range Interpretation Description [...] results) Medical, PC) ID Date Data Source [id number] 04/17/2020 12:00:00 AM EDT [facility] ([facility] [...] by Light microscopy ID Date Data Source [id number] 04/17/2020 12:00:00 AM EDT [facility] ([facility] [...] MEDGE N (St mL/min/1 Juan C's .73 [facility], ) Sodium 136 Normal (applies [facility]GEN (St [Moles/volume] in mmol/L to non-numeric Juan C's Serum or Plasma results) [facility], ) BUN/Creatinine 10 Normal (applies [facility]GEN (S t Ratio to non-numeric Juan C's results) [facility], ) Potassium 4.8 Normal (applies [facility] (St [Mass/volume] in mmol/L to non-numeric Juan C's Blood results) [facility], ) Carbon dioxide, 19 Below low normal [facility]GEN (St total mmol/L Juan C's [Moles/volume] in Medical, Serum or Plasma PC) Chloride 107 Above high [facility]GEN (St [Moles/volume] in mmol/L normal Juan C's Serum or Plasma [facility], ) Calcium 8.6 Normal (applies [facility]GEN (St [Moles/volume] in mg/dL to non-numeric Juan C's Urine collected for results) [facility], unspecified ) duration Protein 8.7 g/dL Above high MEDGEN (St [Mass/volume] in normal Juan C's Serum or Plasma [facility], ) Microalbumin 4.0 g/dL Normal (applies [facility]GEN (St [Mass/time] in to non-numeric Juan C's Urine collected for results) [facility], unspecified ) duration A/G Ratio 0.9 Below low normal [facility] ([facility], ) Globulin, Total 4.7 g/dL Above high [facility]GEN (St normal [facility], ) Bilirubin.total 0.2 Normal (applies [facility]GEN ( St [Mass/volume] in mg/dL to non-numeric Juan C's Serum or Plasma results) [facility], ) Aspartate 20 IU/L Normal (applies [...] Serum or Plasma ID Date Data Source [id number] 04/17/2020 12:00:00 AM EDT [facility] ([facility], ) Name Value Range Interpretation Description Data Sup porting Code Source(s) Document(s ) Leukocytes 11.4 Above high normal [facility] (St [#/volume] in x10E3/uL Juan C's Blood by [facility]) Automated count Erythrocytes 2.79 Below low normal [facility] (St [#/volume] in x10E6/uL Juan C's Blood by [facility]) Automated count Hematocrit 27.3 % Below low normal [facility] (St [Volume Juan C's Fraction] of [facility], ) Blood by Automated count Hemoglobin 9.3 g/dL Below low normal [facility] (St [Mass/volume] in Juan C's Blood [facility]) MCH 33.3 pg Above high normal [facility] ([facility], ) MCV 98 fL Above high normal [facility] ([facility], ) MCHC 34.1 Normal (applies MEDGEN (St g/dL to non-numeric Juan C's results) [facility]) Platelets 146 Below low normal [facility] (St [#/area] in x10E3/uL Juan C's Blood by [facility]) Microscopy high power field RDW 17.5 % Above high normal [facility] ([facility], ) Lymphs 12 % Normal (applies MEDGEN (St to non-numeric Juan C's results) [facility]) Neutrophils [#] 71 % Normal (applies MEDGEN ( St in Body fluid by to non-numeric Juan C's Manual count results) [facility]) Monocytes 9 % Normal (applies MEDGEN (St [#/volume] in to non-numeric Juan C's Cord blood results) [facility]) Eos 4 % Normal (applies [facility]GEN (St to non-numeric Juan C's results) [facility]) Basos 0 % Normal (applies [facility]GEN (St to non-numeric Juan C's results) [facility]) Neutrophils 8.2 Above high normal MEDGEN (St (Absolute) x10E3/uL [facility], ) Monocytes(Absolu 1.0 Above high normal MEDGE N (St te) x10E3/uL [facility], ) Lymphs 1.4 Normal (applies [facility]GEN (St (Absolute) x10E3/uL to non-numeric Juan C's results) [facility]) Baso (Absolute) 0.0 Normal (applies MEDGEN ( St x10E3/uL to non-numeric Juan C's results) Medical, ) Eos (Absolute) 0.4 Normal (applies [facility]GEN (S t x10E3/uL to non-numeric Juan C's results) Medical, ) Immature 4 % Normal (applies [facility] (St Granulocytes to non-numeric Juan C's results) Medical, ) Immature Grans 0.4 Above high normal [facility]GEN (St (Abs) x10E3/uL [facility], ) NRBC 1 % Above high normal [facility] ([facility], ) ID Date Data Source [id number] 04/17/2020 12:00:00 AM EDT MED[facility] ([facility], ) Name Value Range Interpretation Code Description Data Supporting Source(s) Document(s ) Albumin, 741.5 Normal (applies to [facility]GEN (St Urine ug/mL non-numeric Juan C's results) [facility], ) ID Date Data Source [id number] 04/17/2020 12:00:00 AM EDT MED[facility] ([facility], ) Name Value Range Interpretation Description Data Sup porting Code Source(s) Document(s ) INR 1.1 Normal (applies [facility] (St to non-numeric Juan C's results) Medical, ) Prothrombin 11.4 sec Normal (applies [facility] (St Time to non-numeric Juan C's results) Medical, ) aPTT 28 sec Normal (applies [facility] (St to non-numeric Juan C's results) [facility], ) ID Date Data Source [id number] 04/17/2020 12:00:00 AM EDT MED[facility] ([facility], ) Name Value Range Interpretation Code Description Data Supporting Source(s) Document(s ) Creatinine 74.9 mg/dL Normal (applies to [facility]GEN (S t , Urine non-numeric Juan C's results) Medical, ) Protein,To 185.1 Normal (applies to [facility] (St ruth,Urine mg/dL non-numeric Juan C's results) [facility], ) Protein/Cr 2471 mg/g Above high normal MEDGEN (St eat Ratio creat [facility], ) ID Date Data Source [id number] 04/17/2020 12:00:00 AM EDT MED[facility] ([facility], ) Name Value Range Interpretation Description [...] to non-numeric Juan C's Urine collected results) [facility], for unspecified PC) duration Ketones Negative [...] results) Medical, ) ID Date Data Source [id number] 04/17/2020 12:00:00 AM EDT MED[facility] (St Julienne [...] by Light microscopy ID Date Data Source [id number] 04/17/2020 12:00:00 AM EDT [facility] ([facility], ) Name Value Range Interpretation Description Data Sup porting Code Source(s) Document(s ) Glucose 89 mg/dL Normal (applies [facility] (St [Mass/volume] in to non-numeric Juan C's Urine collected for results) Medical, unspecified ) duration Urea nitrogen 47 mg/dL Above high MEDGEN (St [Mass/volume] in normal Juan C's Serum or Plasma [facility], ) Creatinine 4.60 Above high [facility]GEN (St [Interpretation] in mg/dL normal Juan C's Urine [facility], ) eGFR If NonAfricn 12 Below low normal MEDGE N (St Am mL/min/1 [facility] [address] [place] [address], ) eGFR If Africn Am 13 Below low normal MEDGE N (St mL/min/1 [facility], ) Sodium 136 Normal (applies [facility] (St [Moles/volume] in mmol/L to non-numeric Juan C's Serum or Plasma results) [facility], ) BUN/Creatinine 10 Normal (applies [facility]GEN (S t Ratio to non-numeric Juan C's results) [facility], ) Potassium 4.8 Normal (applies [facility] (St [Mass/volume] in mmol/L to non-numeric Juan C's Blood results) [facility], ) Chloride 107 Above high MEDGEN (St [Moles/volume] in mmol/L normal Juan C's Serum or Plasma [facility], ) Carbon dioxide, 19 Below low normal [facility]GEN (St total mmol/L Juan C's [Moles/volume] in Medical, Serum or Plasma PC) Calcium 8.6 Normal (applies [facility] (St [Moles/volume] in mg/dL to non-numeric Juan C's Urine collected for results) Medical, unspecified ) duration Protein 8.7 g/dL Above high MEDGEN (St [Mass/volume] in normal Juan C's Serum or Plasma [facility], ) Microalbumin 4.0 g/dL Normal (applies [facility] (St [Mass/time] in to non-numeric Juan C's Urine collected for results) Medical, unspecified ) duration Globulin, Total 4.7 g/dL Above high MEDGEN (St normal [facility], ) A/G Ratio 0.9 Below low normal [facility] ([facility]) Bilirubin.total 0.2 Normal (applies MEDGEN ( St [Mass/volume] in mg/dL to non-numeric Juan C's Serum or Plasma results) [facility], ) Alkaline 75 IU/L Normal (applies [facility] (St phosphatase to non-numeric Juan C's [Enzymatic results) Medical, activity/volume] in ) Serum, Plasma or Blood Aspartate 20 IU/L Normal (applies [facility] (St aminotransferase to non-numeric Ujan C's [Enzymatic results) [facility], activity/volume] in ) Serum or Plasma Alanine 57 IU/L Above high MEDGEN (St aminotransferase normal Juan C's [Enzymatic Medical, activity/volume] in ) Serum or Plasma ID Date Data Source [id number] 04/17/2020 12:00:00 AM EDT [facility] ([facility], ) Name Value Range Interpretation Description Data Sup porting Code Source(s) Document(s ) Leukocytes 11.4 Above high normal [facility]GEN (St [#/volume] in x10E3/uL Juan C's Blood by [facility]) Automated count Erythrocytes 2.79 Below low normal [facility]GEN (St [#/volume] in x10E6/uL Juan C's Blood by [facility]) Automated count Hemoglobin 9.3 g/dL Below low normal MEDGEN (St [Mass/volume] in [facility] Blood [facility], ) Hematocrit 27.3 % Below low normal MEDGEN (St [Volume Juan C's Fraction] of [facility], ) Blood by Automated count MCV 98 fL Above high normal [facility] ([facility], ) MCH 33.3 pg Above high normal [facility] ([facility], ) MCHC 34.1 Normal (applies [facility]GEN (St g/dL to non-numeric Juan C's results) [facility]) RDW 17.5 % Above high normal [facility] ([facility], ) Neutrophils [#] 71 % Normal (applies MEDGEN ( St in Body fluid by to non-numeric Juan C's Manual count results) [facility]) Platelets 146 Below low normal MEDGEN (St [#/area] in x10E3/uL [facility]'s Blood by Medical, ) Microscopy high power field Lymphs 12 % Normal (applies [facility]GEN (St to non-numeric Juan C's results) [facility], ) Monocytes 9 % Normal (applies [facility]GEN (St [#/volume] in to non-numeric Juan C's Cord blood results) [facility], ) Eos 4 % Normal (applies [facility] (St to non-numeric Juan C's results) [facility], ) Neutrophils 8.2 Above high normal [facility] (St (Absolute) x10E3/uL Juan [facility], ) Basos 0 % Normal (applies [facility]GEN (St to non-numeric Juan C's results) [facility], ) Lymphs 1.4 Normal (applies [facility]GEN (St (Absolute) x10E3/uL to non-numeric Juan C's results) [facility], ) Monocytes(Absolu 1.0 Above high normal MEDGE N (St te) x10E3/uL [facility], ) Eos (Absolute) 0.4 Normal (applies [facility]GEN (S t x10E3/uL to non-numeric Juan C's results) [facility], ) Baso (Absolute) 0.0 Normal (applies MEDGEN ( St x10E3/uL to non-numeric Juan C's results) [facility], ) Immature 4 % Normal (applies [facility] (St Granulocytes to non-numeric Juan C's results) [facility], ) Immature Grans 0.4 Above high normal [facility] (St (Abs) x10E3/uL [facility], ) NRBC 1 % Above high normal [facility] ([facility], ) ID Date Data Source [id number] 04/17/2020 12:00:00 AM EDT [facility] ([facility], ) Name Value Range Interpretation Code Description Data Supporting Source(s) Document(s ) Albumin, 741.5 Normal (applies to MEDGEN (St Urine ug/mL non-numeric Juan C's results) [facility], ) ID Date Data Source [id number] 04/17/2020 12:00:00 AM EDT [facility] ([facility], ) Name Value Range Interpretation Description Data Sup porting Code Source(s) Document(s ) INR 1.1 Normal (applies [facility] (St to non-numeric Juan C's results) [facility], ) Prothrombin 11.4 sec Normal (applies [facility] (St Time to non-numeric Juan C's results) Medical, PC) aPTT 28 sec Normal (applies [facility] (St to non-numeric Juan C's results) Medical, PC) ID Date Data Source [id number] 04/17/2020 12:00:00 AM EDT MED[facility] (St Julienne [...] C's Medical, ) ID Date Data Source [id number] 04/17/2020 12:00:00 AM EDT MED[facility] ([facility] [...] results) Medical, PC) ID Date Data Source [id number] 04/17/2020 12:00:00 AM EDT [facility] ([employer] [facility], ) Name Value Range Interpretation Description [...] by Light microscopy ID Date Data Source [id number] 04/17/2020 12:00:00 AM EDT [facility] ([facility] [employer] [facility], ) Name Value Range Interpretation Description Data Sup porting Code Source(s) Document(s ) Glucose 89 mg/dL Normal (applies [facility]GEN (St [Mass/volume] in to non-numeric Juan C's Urine collected for results) Medical, unspecified ) duration Urea nitrogen 47 mg/dL Above high [facility]GEN (St [Mass/volume] in normal Juan C's Serum or Plasma Medical, ) Creatinine 4.60 Above high [facility]GEN (St [Interpretation] in mg/dL normal Juan C's Urine Medical, ) eGFR If NonAfricn 12 Below low normal MEDGE N (St Am mL/min/1 Juan C's .73 [facility], PC) eGFR If Africn Am 13 Below low normal MEDGE N (St mL/min/1 Juan C's .[facility], PC) BUN/Creatinine 10 Normal (applies [facility]GEN (S t Ratio to non-numeric Juan C's results) Medical, ) Sodium 136 Normal (applies [facility]GEN (St [Moles/volume] in mmol/L to non-numeric Juan C's Serum or Plasma results) Medical, ) Potassium 4.8 Normal (applies [facility] (St [Mass/volume] in mmol/L to non-numeric Juan C's Blood results) [facility], ) Chloride 107 Above high MEDGEN (St [Moles/volume] in mmol/L normal Juan C's Serum or Plasma [facility], ) Carbon dioxide, 19 Below low normal [facility]GEN (St total mmol/L Juan C's [Moles/volume] in Medical, Serum or Plasma PC) Calcium 8.6 Normal (applies [facility]GEN (St [Moles/volume] in mg/dL to non-numeric Juan C's Urine collected for results) [facility], unspecified ) duration Protein 8.7 g/dL Above high MEDGEN (St [Mass/volume] in normal Juan C's Serum or Plasma [facility], ) Microalbumin 4.0 g/dL Normal (applies MEDGEN (St [Mass/time] in to non-numeric Juan C's Urine collected for results) [facility], unspecified ) duration Globulin, Total 4.7 g/dL Above high MEDGEN (St normal [facility], ) A/G Ratio 0.9 Below low normal [facility] ([facility], ) Bilirubin.total 0.2 Normal (applies MEDGEN ( St [Mass/volume] in mg/dL to non-numeric Juan C's Serum or Plasma results) [facility], ) Alkaline 75 IU/L Normal (applies [...] Serum or Plasma ID Date Data Source [id number] 04/17/2020 12:00:00 AM EDT [facility] ([facility], ) Name Value Range Interpretation Description Data Sup porting Code Source(s) Document(s ) Leukocytes 11.4 Above high normal MEDGEN (St [#/volume] in x10E3/uL Juan C's Blood by [facility]) Automated count Erythrocytes 2.79 Below low normal MEDGEN (St [#/volume] in x10E6/uL Juan C's Blood by [facility]) Automated count Hemoglobin 9.3 g/dL Below low normal [facility]GEN (St [Mass/volume] in Juan C's Blood [facility]) Hematocrit 27.3 % Below low normal [facility]GEN (St [Volume Juan C's Fraction] of [facility]) Blood by Automated count MCV 98 fL Above high normal [facility]GEN ([facility], ) MCH 33.3 pg Above high normal [facility] ([facility]) MCHC 34.1 Normal (applies MEDGEN (St g/dL to non-numeric Juan C's results) [facility]) RDW 17.5 % Above high normal [facility] ([facility]) Platelets 146 Below low normal MEDGEN (St [#/area] in x10E3/uL Juan C's Blood by [facility]) Microscopy high power field Neutrophils [#] 71 % Normal (applies MEDGEN ( St in Body fluid by to non-numeric Juan C's Manual count results) [facility]) Lymphs 12 % Normal (applies [facility]GEN (St to non-numeric Juan C's results) [facility]) Monocytes 9 % Normal (applies MEDGEN (St [#/volume] in to non-numeric Juan C's Cord blood results) [facility]) Eos 4 % Normal (applies [facility]GEN (St to non-numeric Juan C's results) [facility]) Basos 0 % Normal (applies MEDGEN (St to non-numeric Juan C's results) [facility]) Neutrophils 8.2 Above high normal MEDGEN (St (Absolute) x10E3/uL Juan C's [facility]) Lymphs 1.4 Normal (applies MEDGEN (St (Absolute) x10E3/uL to non-numeric Juan C's results) [facility]) Monocytes(Absolu 1.0 Above high normal MEDGE N (St te) x10E3/uL Juan C's [facility]) Eos (Absolute) 0.4 Normal (applies MEDGEN (S t x10E3/uL to non-numeric Juan C's results) [facility]) Baso (Absolute) 0.0 Normal (applies MEDGEN ( St x10E3/uL to non-numeric Juan C's results) [facility]) Immature 4 % Normal (applies MEDGEN (St Granulocytes to non-numeric Juan C's results) [facility], ) Immature Grans 0.4 Above high normal MEDGEN (St (Abs) x10E3/uL [facility], ) NRBC 1 % Above high normal [facility] ([facility], ) ID Date Data Source [id number] 04/17/2020 12:00:00 AM EDT [facility] ([facility], ) Name Value Range Interpretation Code Description Data Supporting Source(s) Document(s ) Albumin, 741.5 Normal (applies to MEDGEN (St Urine ug/mL non-numeric Juan C's results) [facility], ) ID Date Data Source [id number] 04/17/2020 12:00:00 AM EDT [facility] ([facility], ) Name Value Range Interpretation Description Data Sup porting Code Source(s) Document(s ) INR 1.1 Normal (applies MEDGEN (St to non-numeric Juan C's results) Medical, ) Prothrombin 11.4 sec Normal (applies [facility]GEN (St Time to non-numeric Juan C's results) [facility], ) aPTT 28 sec Normal (applies [facility]GEN (St to non-numeric Juan C's results) [facility], ) ID Date Data Source [id number] 04/17/2020 12:00:00 AM EDT [facility] ([facility], ) Name Value Range Interpretation Code Description Data Supporting Source(s) Document(s ) Protein,To 185.1 Normal (applies to MEDGEN (St ruth,Urine mg/dL non-numeric Juan C's results) [facility], ) Creatinine 74.9 mg/dL Normal (applies to MEDGEN (S t , Urine non-numeric Juan C's results) [facility], ) Protein/Cr 2471 mg/g Above high normal MEDGEN (St eat Ratio creat [facility], ) ID Date Data Source [id number] 04/17/2020 12:00:00 AM EDT [facility] ([facility], ) Name Value Range Interpretation Description Data Sup porting Code Source(s) Document(s ) Specific gravity 1.015 Normal (applies MEDGEN (St of Pericardial to non-numeric Juan C's fluid by results) [facility], Refractometry ) pH of Lower 6.5 Normal [...] to non-numeric Juan C's Urine collected results) [facility], for unspecified PC) duration Occult Blood [...] results) Medical, ) ID Date Data Source [id number] 04/17/2020 12:00:00 AM EDT [facility] ([facility] [...] by Light microscopy ID Date Data Source [id number] 04/17/2020 12:00:00 AM EDT [facility] ([facility], ) Name Value Range Interpretation Description Data Sup porting Code Source(s) Document(s ) Glucose 89 mg/dL Normal (applies MEDGEN (St [Mass/volume] in to non-numeric Juan C's Urine collected for results) Medical, unspecified PC) duration Urea nitrogen 47 mg/dL Above high MEDGEN (St [Mass/volume] in normal Juan C's Serum or Plasma [facility], ) eGFR If NonAfricn 12 Below low normal MEDGE N (St Am mL/min/1 [facility], ) Creatinine 4.60 Above high MEDGEN (St [Interpretation] in mg/dL normal Juan C's Urine [facility], ) BUN/Creatinine 10 Normal (applies MEDGEN (S t Ratio to non-numeric Juan C's results) [facility], ) eGFR If Africn Am 13 Below low normal MEDGE N (St mL/min/1 [facility]'s .[facility], ) Sodium 136 Normal (applies MEDGEN (St [Moles/volume] in mmol/L to non-numeric Juan C's Serum or Plasma results) [facility], ) Chloride 107 Above high MEDGEN (St [Moles/volume] in mmol/L normal Juan C's Serum or Plasma [facility], ) Potassium 4.8 Normal (applies [facility]GEN (St [Mass/volume] in mmol/L to non-numeric Juan C's Blood results) [facility], ) Carbon dioxide, 19 Below low normal MEDGEN (St total mmol/L Juan C's [Moles/volume] in Medical, Serum or Plasma PC) Calcium 8.6 Normal (applies [facility]GEN (St [Moles/volume] in mg/dL to non-numeric Juan C's Urine collected for results) Medical, unspecified PC) duration Protein 8.7 g/dL Above high MEDGEN (St [Mass/volume] in normal Juan C's Serum or Plasma [facility], ) Microalbumin 4.0 g/dL Normal (applies MEDGEN (St [Mass/time] in to non-numeric Juan C's Urine collected for results) Medical, unspecified PC) duration Globulin, Total 4.7 g/dL Above high MEDGEN (St normal Juan C's [facility], ) A/G Ratio 0.9 Below low normal [facility] ([facility], ) Bilirubin.total 0.2 Normal (applies MEDGEN ( St [Mass/volume] in mg/dL to non-numeric Juan C's Serum or Plasma results) [facility]) Alkaline 75 IU/L Normal (applies [...] Serum or Plasma ID Date Data Source [id number] 04/17/2020 12:00:00 AM EDT MED[facility] ([facility], ) Name Value Range Interpretation Description Data Sup porting Code Source(s) Document(s ) Erythrocytes 2.79 Below low normal MEDGEN (St [#/volume] in x10E6/uL Juan C's Blood by [facility]) Automated count Leukocytes 11.4 Above high normal [facility]GEN (St [#/volume] in x10E3/uL Juan C's Blood by [facility]) Automated count Hemoglobin 9.3 g/dL Below low normal MEDGEN (St [Mass/volume] in [facility] Blood [facility]) Hematocrit 27.3 % Below low normal MEDGEN (St [Volume Juan C's Fraction] of [facility]) Blood by Automated count MCV 98 fL Above high normal [facility] ([facility], ) MCHC 34.1 Normal (applies MEDGEN (St g/dL to non-numeric Juan C's results) [facility]) MCH 33.3 pg Above high normal [facility] ([facility], ) RDW 17.5 % Above high normal MEDGEN ([facility], ) Neutrophils [#] 71 % Normal (applies MEDGEN ( St in Body fluid by to non-numeric Juan C's Manual count results) [facility]) Platelets 146 Below low normal MEDGEN (St [#/area] in x10E3/uL Juan C's Blood by [facility]) Microscopy high power field Monocytes 9 % Normal (applies MEDGEN (St [#/volume] in to non-numeric Juan C's Cord blood results) [facility] ) Lymphs 12 % Normal (applies MEDGEN (St to non-numeric Juan C's results) Medical, ) Eos 4 % Normal (applies MEDGEN (St to non-numeric Juan C's results) Medical, ) Neutrophils 8.2 Above high normal MEDGEN (St (Absolute) x10E3/uL Juan [facility]'s [facility], ) Basos 0 % Normal (applies MEDGEN (St to non-numeric Juan C's results) Medical, ) Lymphs 1.4 Normal (applies MEDGEN (St (Absolute) x10E3/uL to non-numeric Juan C's results) Medical, ) Monocytes(Absolu 1.0 Above high normal MEDGE N (St te) x10E3/uL Juan C's [facility], ) Eos (Absolute) 0.4 Normal (applies MEDGEN (S t x10E3/uL to non-numeric Juan C's results) Medical, ) Immature 4 % Normal (applies MEDGEN (St Granulocytes to non-numeric Juan C's results) Medical, ) Baso (Absolute) 0.0 Normal (applies MEDGEN ( St x10E3/uL to non-numeric Juan C's results) Medical, ) Immature Grans 0.4 Above high normal MEDGEN (St (Abs) x10E3/uL [facility], ) NRBC 1 % Above high normal [facility] ([facility], ) ID Date Data Source [id number] 04/17/2020 12:00:00 AM EDT [facility] ([facility], ) Name Value Range Interpretation Code Description Data Supporting Source(s) Document(s ) Albumin, 741.5 Normal (applies to MEDGEN (St Urine ug/mL non-numeric Juan C's results) Medical, ) ID Date Data Source [id number] 04/17/2020 12:00:00 AM EDT MED[facility] ([facility] [...] results) Medical, ) ID Date Data Source [id number] 04/17/2020 12:00:00 AM EDT MEDGEN ([facility] [...] high normal MEDGEN (St eat Ratio creat [facility]'s Medical, ) ID Date Data Source [id number] 04/17/2020 12:00:00 AM EDT MEDGEN ([facility] [...] results) Medical, PC) ID Date Data Source [id number] 04/17/2020 12:00:00 AM EDT MEDGEN ([facility] [...] by Light microscopy ID Date Data Source [id number] 04/17/2020 12:00:00 AM EDT [facility] ([facility], ) Name Value Range Interpretation Description Data Sup porting Code Source(s) Document(s ) Glucose 89 mg/dL Normal (applies MEDGEN (St [Mass/volume] in to non-numeric Juan C's Urine collected for results) Medical, unspecified PC) duration Creatinine 4.60 Above high MEDGEN (St [Interpretation] in mg/dL normal Juan C's Urine Medical, PC) Urea nitrogen 47 mg/dL Above high MEDGEN (St [Mass/volume] in normal Juan C's Serum or Plasma Medical, PC) eGFR If NonAfricn 12 Below [...] Serum or Plasma results) Medical, PC) Potassium 4.8 Normal (applies MEDGEN (St [Mass/volume] in mmol/L to non-numeric Juan C's Blood results) [facility], ) Chloride 107 Above high MEDGEN (St [Moles/volume] in mmol/L normal Juan C's Serum or Plasma [facility], ) Carbon dioxide, 19 Below low normal MEDGEN (St total mmol/L Juan C's [Moles/volume] in Medical, Serum or Plasma PC) Calcium 8.6 Normal (applies MEDGEN (St [Moles/volume] in mg/dL to non-numeric Juan C's Urine collected for results) [facility], unspecified ) duration Protein 8.7 g/dL Above high MEDGEN (St [Mass/volume] in normal Juan C's Serum or Plasma [facility], ) Microalbumin 4.0 g/dL Normal (applies MEDGEN (St [Mass/time] in to non-numeric Juan C's Urine collected for results) [facility], unspecified ) duration Globulin, Total 4.7 g/dL Above high MEDGEN (St normal [facility], ) A/G Ratio 0.9 Below low normal MEDGEN ([facility], ) Bilirubin.total 0.2 Normal (applies MEDGEN ( St [Mass/volume] in mg/dL to non-numeric Juan C's Serum or Plasma results) [facility], ) Alkaline 75 IU/L Normal (applies [...] Serum or Plasma ID Date Data Source [id number] 04/17/2020 12:00:00 AM EDT MEDGEN ([facility], ) Name Value Range Interpretation Description Data Sup porting Code Source(s) Document(s ) Leukocytes 11.4 Above high normal MEDGEN (St [#/volume] in x10E3/uL Juan C's Blood by [facility], ) Automated count Erythrocytes 2.79 Below low normal MEDGEN (St [#/volume] in x10E6/uL Juan C's Blood by [facility], ) Automated count Hemoglobin 9.3 g/dL Below low normal MEDGEN (St [Mass/volume] in Juan C's Blood [facility]) MCV 98 fL Above high normal [facility] ([facility]) Hematocrit 27.3 % Below low normal MEDGEN (St [Volume Juan C's Fraction] of [facility]) Blood by Automated count MCH 33.3 pg Above high normal MEDGEN ([facility]) MCHC 34.1 Normal (applies MEDGEN (St g/dL to non-numeric Juan C's results) [facility]) Platelets 146 Below low normal MEDGEN (St [#/area] in x10E3/uL Juan C's Blood by [facility]) Microscopy high power field RDW 17.5 % Above high normal MEDGEN ([facility], ) Neutrophils [#] 71 % Normal (applies MEDGEN ( St in Body fluid by to non-numeric Juan C's Manual count results) [facility]) Lymphs 12 % Normal (applies MEDGEN (St to non-numeric Juan C's results) [facility]) Monocytes 9 % Normal (applies MEDGEN (St [#/volume] in to non-numeric Juan C's Cord blood results) [facility]) Basos 0 % Normal (applies MEDGEN (St to non-numeric Juan C's results) [facility]) Eos 4 % Normal (applies MEDGEN (St to non-numeric Juan C's results) [facility]) Neutrophils 8.2 Above high normal MEDGEN (St (Absolute) x10E3/uL [facility]) Lymphs 1.4 Normal (applies MEDGEN (St (Absolute) x10E3/uL to non-numeric Juan C's results) [facility]) Monocytes(Absolu 1.0 Above high normal MEDGE N (St te) x10E3/uL [facility]) Eos (Absolute) 0.4 Normal (applies MEDGEN (S t x10E3/uL to non-numeric Juan C's results) [facility]) Baso (Absolute) 0.0 Normal (applies MEDGEN ( St x10E3/uL to non-numeric Juan C's results) [facility]) Immature 4 % Normal (applies MEDGEN (St Granulocytes to non-numeric Juan C's results) [facility]) Immature Grans 0.4 Above high normal MEDGEN (St (Abs) x10E3/uL [facility], ) NRBC 1 % Above high normal MEDGEN ([facility], ) ID Date Data Source [id number] 04/06/2020 09:40:00 PM EDT [facility] Name Value Range Interpretation Description Data Sup porting Code Source(s) Document(s ) SARS [facility] CORONAVIRUS 2 RNA This lab was ordered by [facility] and reported by [facility]. ID Date Data Source [id number] 03/27/2020 06:50:00 PM EDT [facility] Name Value Range Interpretation Description Data Sup porting Code Source(s) Document(s ) SARS [facility] CORONAVIRUS 2 RNA This lab was ordered by [facility] and reported by [facility]. ID Date Data Source [id number] 03/22/2020 12:00:00 AM EDT MEDGEN (St [facility], ) Name Value Range Interpretation Code Description Data Lisa rce(s) Supporting Document(s ) ID Date Data Source [id number] 03/22/2020 12:00:00 AM EDT MED[facility] ([facility], ) Name Value Range Interpretation Code Description Data Supporting Source(s) Document(s ) PTH, Intact 10 pg/mL Below low normal MED[facility] ([facility], ) ID Date Data Source [id number] 03/22/2020 12:00:00 AM EDT [facility] ([facility], ) Name Value Range Interpretation Code Description Data Supporting Source(s) Document(s ) Ferritin, 349 ng/mL Normal (applies to MEDGEN (St Serum non-numeric Juan C's results) [facility], ) ID Date Data Source [id number] 03/22/2020 12:00:00 AM EDT [facility] ([facility], ) Name Value Range Interpretation Description Data Sup porting Code Source(s) Document(s ) Deprecated 5.4 mg/dL Above high normal MEDGEN (St Phosphorus Juan C's [Mass/time] in Medical, ) 24 hour Urine ID Date Data Source [id number] 03/22/2020 12:00:00 AM EDT [facility] ([facility], ) Name Value Range Interpretation Code Description Data Lisa rce(s) Supporting Document(s ) RAGINI Normal (applies to MEDGEN (St Interpreta non-numeric results) [facility] M edical, tion:U PC) ID Date Data Source [id number] 03/22/2020 12:00:00 AM EDT [facility] ([facility] Name Value Range Interpretation Description Data Sup porting Code Source(s) Document(s ) Vitamin D, 30.6 Normal (applies to MEDGEN (St 25-Hydroxy ng/mL non-numeric Juan C's results) Medical, ) ID Date Data Source [id number] 03/22/2020 12:00:00 AM EDT [facility] Name Value Range Interpretation Description Data Sup porting Code Source(s) Document(s ) Free [place] 141.85 Above high normal MEDGEN (St Lt mg/L [facility], [facility]) Free [place] 110.44 Above high normal MEDGEN (St Lt mg/L [facility], [facility]) [place] 1.28 Normal (applies to MEDGEN (S t a Ratio,U non-numeric Juan [facility]'s results) Medical, ) ID Date Data Source [id number] 03/22/2020 12:00:00 AM EDT [facility] Name Value Range Interpretation Description Data Sup porting Code Source(s) Document(s ) Free [place] 41.1 mg/L Above high normal MEDGEN (St Lt Chains,S [facility]) Free [place] 176.0 mg/L Above high normal MEDGEN (S t Lt Chains,S [facility], [facility]) [place] 0.23 Below low normal MEDGEN (St a Ratio,S [facility]) ID Date Data Source [id number] 03/22/2020 12:00:00 AM EDT [facility] Name Value Range Interpretation Code Description Data Supporting Source(s) Document(s ) Creatinine 94.7 mg/dL Normal (applies to MEDGEN (S t , Urine non-numeric Juan C's results) Medical, ) Protein/Cr 1072 mg/g Above high normal MEDGEN (St eat Ratio creat [facility], [facility]) ID Date Data Source [id number] 03/22/2020 12:00:00 AM EDT [facility] ([facility], ) Name Value Range Interpretation Description Data Sup porting Code Source(s) Document(s ) Immunofixation Normal (applies MEDGEN (S t Result, Serum to non-numeric Juan C's results) [facility]) Immunoglobulin G, 3867 Above high normal MEDG EN (St Qn, Serum mg/dL [facility]) Immunoglobulin A, 17 mg/dL Below low normal MEDGE N (St Qn, Serum [facility]) Immunoglobulin M, 8 mg/dL Below low normal MEDGE N (St Qn, Serum [facility]) ID Date Data Source [id number] 03/22/2020 12:00:00 AM EDT MED[facility] ([facility]) Name Value Range Interpretation Description Data Sup porting Code Source(s) Document(s ) Iron 248 ug/dL Below low normal MEDGEN (St Bind.Cap.(TIBC Juan C's ) [facility]) UIBC 172 ug/dL Normal (applies to MEDGEN (St non-numeric Juan C's results) [facility]) Iron 76 ug/dL Normal (applies to MEDGEN (St [Mass/volume] non-numeric Juan C's in Serum or results) [facility]) Plasma Iron 31 % Normal (applies to MEDGEN (St saturation non-numeric Juan C's [Mass results) [facility]) Fraction] in Serum or Plasma ID Date Data Source [id number] 03/22/2020 12:00:00 AM EDT MED[facility] ([facility]) Name Value Range Interpretation Description Data Sup porting Code Source(s) Document(s ) Protein,Tot 101.5 Normal (applies to MEDGEN (S t al,Urine mg/dL non-numeric Juan C's results) [facility]) Albumin, U 36.2 % Normal (applies to MEDGEN (St non-numeric Juan C's results) [facility]) Alpha-1-Nadine 5.7 % Normal (applies to MEDGEN (S t bulin, U non-numeric Juan [facility]'s results) [facility]) Alpha-2-Nadine 12.8 % Normal (applies to MEDGEN (S t bulin, U non-numeric Jaun C's results) [facility]) Beta 29.7 % Normal (applies [...] results) Medical, PC) ID Date Data Source [id number] 03/22/2020 12:00:00 AM EDT [facility] ([facility] Name Value Range Interpretation Description Data Sup porting Code Source(s) Document(s ) Microalbumin 4.0 g/dL Normal (applies MEDGEN (St [Mass/time] in to non-numeric Juan C's Urine collected results) Medical, for unspecified PC) duration Qlnzj-8-Nsqmueee 0.2 g/dL Normal (applies MEDGEN (St to non-numeric [facility]'s results) Medical, PC) Hxmfn-1-Ozbqqocr 0.8 g/dL Normal (applies MEDGEN (St to [...] Above high normal [facility] ([facility]) Globulin, Total 5.1 g/dL Above high normal [facility] ([facility]) A/G Ratio 0.8 Normal (applies MEDGEN (St to non-numeric [facility]'s results) Medical, PC) Please note: Normal (applies MEDGEN (St to non-numeric [facility]'s results) [facility], PC) PDF . Normal (applies MEDGEN (St to non-numeric [facility]'s results) Medical, ) ID Date Data Source [id number] 03/22/2020 12:00:00 AM EDT MEDGEN (St [facility] [...] results) Medical, ) ID Date Data Source [id number] 03/22/2020 12:00:00 AM EDT MEDGEN (St [facility] [...] non-numeric Juan C's renal) results) Medical, PC) Crystal Type Calcium Normal (applies MEDGEN (St [...] by Light microscopy ID Date Data Source [id number] 03/22/2020 12:00:00 AM EDT MEDGEN (St Julienne [...] .73 Medical, ) eGFR If Africn Am 10 [...] in normal Juan C's Serum or Plasma [facility], ) Microalbumin 3.9 g/dL Normal (applies MEDGEN (St [Mass/time] in to non-numeric Juan C's Urine collected for results) [facility], unspecified ) duration A/G Ratio 0.8 Below low normal [facility] ([facility], ) Globulin, Total 5.2 g/dL Above high MEDGEN (St normal [facility], ) Bilirubin.total 0.4 Normal (applies MEDGEN ( St [Mass/volume] in mg/dL to non-numeric Juan C's Serum or Plasma results) [facility], ) Alkaline 63 IU/L Normal (applies MEDGEN (St phosphatase to non-numeric Juan C's [Enzymatic results) Medical, activity/volume] in ) Serum, Plasma or Blood Aspartate 43 IU/L Above high MEDGEN (St aminotransferase normal Juan C's [Enzymatic Medical, activity/volume] in ) Serum or Plasma Alanine 43 IU/L Normal (applies MEDGEN (St aminotransferase to non-numeric Juan C's [Enzymatic results) [facility], activity/volume] in ) Serum or Plasma ID Date Data Source [id number] 03/22/2020 12:00:00 AM EDT MEDGEN ([facility], ) Name Value Range Interpretation Description Data Sup porting Code Source(s) Document(s ) Leukocytes 11.7 Above high normal MEDGEN (St [#/volume] in x10E3/uL Juan C's Blood by [facility], ) Automated count Erythrocytes 2.47 Below lower panic MEDGEN (S t [#/volume] in x10E6/uL limits Juan C's Blood by [facility], ) Automated count Hemoglobin 8.2 g/dL Below low normal MEDGEN (St [Mass/volume] in Juan C's Blood [facility], ) Hematocrit 23.3 % Below low normal MEDGEN (St [Volume Juan C's Fraction] of [facility], ) Blood by Automated count MCV 94 fL Normal (applies MEDGEN (St to non-numeric Juan C's results) [facility], ) MCH 33.2 pg Above high normal [facility] ([facility], ) MCHC 35.2 Normal (applies MEDGEN (St g/dL to non-numeric Juan C's results) [facility], ) RDW 19.0 % Above high normal [facility] ([facility], ) Platelets 198 Normal (applies MEDGEN (St [#/area] in x10E3/uL to non-numeric Juan C's Blood by results) [facility], ) Microscopy high power field Neutrophils [#] 54 % Normal (applies MEDGEN ( St in Body fluid by to non-numeric Juan C's Manual count results) [facility], ) Lymphs 13 % Normal (applies MEDGEN (St to non-numeric Juan C's results) [facility], ) Monocytes 16 % Normal (applies MEDGEN (St [#/volume] in to non-numeric Juan C's Cord blood results) [facility], ) Eos 11 % Normal (applies MEDGEN (St to non-numeric Juan C's results) [facility]) Basos 1 % Normal (applies MEDGEN (St to non-numeric Juan C's results) [facility], ) Neutrophils 6.4 Normal (applies MEDGEN (St (Absolute) x10E3/uL to non-numeric Juan C's results) [facility], ) Lymphs 1.5 Normal (applies MEDGEN (St (Absolute) x10E3/uL to non-numeric Juan C's results) [facility], ) Monocytes(Absolu 1.9 Above high normal MEDGE N (St te) x10E3/uL [facility], ) Eos (Absolute) 1.3 Above high normal MEDGEN (St x10E3/uL [facility], ) Baso (Absolute) 0.1 Normal (applies MEDGEN ( St x10E3/uL to non-numeric Juan C's results) [facility], ) Immature 5 % Normal (applies MEDGEN (St Granulocytes to non-numeric Juan C's results) [facility]) Immature Grans 0.6 Above high normal MEDGEN (St (Abs) x10E3/uL [facility], ) NRBC 4 % Above high normal [facility] ([facility], ) ID Date Data Source [id number] 03/22/2020 12:00:00 AM EDT [facility] ([facility], ) Name Value Range Interpretation Code Description Data Ilsa rce(s) Supporting Document(s ) ID Date Data Source [id number] 03/22/2020 12:00:00 AM EDT [facility] ([facility], ) Name Value Range Interpretation Code Description Data Supporting Source(s) Document(s ) PTH, Intact 10 pg/mL Below low normal [facility] ([facility], ) ID Date Data Source [id number] 03/22/2020 12:00:00 AM EDT MEDGEN ([facility], ) Name Value Range Interpretation Code Description Data Supporting Source(s) Document(s ) Ferritin, 349 ng/mL Normal (applies to MEDGEN (St Serum non-numeric Juan C's results) [facility], ) ID Date Data Source [id number] 03/22/2020 12:00:00 AM EDT [facility] ([facility], ) Name Value Range Interpretation Description Data Sup porting Code Source(s) Document(s ) Deprecated 5.4 mg/dL Above high normal MEDGEN (St Phosphorus Juan C's [Mass/time] in [facility], ) 24 hour Urine ID Date Data Source [id number] 03/22/2020 12:00:00 AM EDT MED[facility] ([facility], ) Name Value Range Interpretation Code Description Data Lisa rce(s) Supporting Document(s ) RAGINI Normal (applies to MEDGEN (St Interpreta non-numeric results) [facility] '[facility] M edical, tion:U ) ID Date Data Source [id number] 03/22/2020 12:00:00 AM EDT MEDGEN ([facility], ) Name Value Range Interpretation Description Data Sup porting Code Source(s) Document(s ) Vitamin D, 30.6 Normal (applies to MEDGEN (St 25-Hydroxy ng/mL non-numeric Juan C's results) [facility], ) ID Date Data Source [id number] 03/22/2020 12:00:00 AM EDT [facility] ([facility], ) Name Value Range Interpretation Description Data Sup porting Code Source(s) Document(s ) Free [place] 141.85 Above high normal MEDGEN (St Lt mg/L [facility], ) Free [place] 110.44 Above high normal MEDGEN (St Lt mg/L [facility], ) [place] 1.28 Normal (applies to MEDGEN (S t a Ratio,U non-numeric Juan C's results) [facility], ) ID Date Data Source [id number] 03/22/2020 12:00:00 AM EDT MEDGEN (St [facility], ) Name Value Range Interpretation Description Data Sup porting Code Source(s) Document(s ) Free [place] 41.1 mg/L Above high normal MEDGEN (St Lt Chains,S [facility], ) Free Lambda 176.0 mg/L Above high normal MEDGEN (S t Lt Chains,S [facility], ) [place] 0.23 Below low normal MEDGEN (St a Ratio,S [facility], ) ID Date Data Source [id number] 03/22/2020 12:00:00 AM EDT MEDGEN ([facility], ) Name Value Range Interpretation Code Description Data Supporting Source(s) Document(s ) Creatinine 94.7 mg/dL Normal (applies to MEDGEN (S t , Urine non-numeric Juan C's results) [facility], ) Protein/Cr 1072 mg/g Above high normal MEDGEN (St eat Ratio creat [facility], ) ID Date Data Source [id number] 03/22/2020 12:00:00 AM EDT MEDGEN ([facility], ) Name Value Range Interpretation Description Data Sup porting Code Source(s) Document(s ) Immunofixation Normal (applies MEDGEN (S t Result, Serum to non-numeric Juan C's results) [facility]) Immunoglobulin G, 3867 Above high normal MEDG EN (St Qn, Serum mg/dL [facility]) Immunoglobulin A, 17 mg/dL Below low normal MEDGE N (St Qn, Serum [facility]) Immunoglobulin M, 8 mg/dL Below low normal MEDGE N (St Qn, Serum [facility]) ID Date Data Source [id number] 03/22/2020 12:00:00 AM EDT MEDGEN (St [facility], ) Name Value Range Interpretation Description Data Sup porting Code Source(s) Document(s ) Iron 248 ug/dL Below low normal MEDGEN (St Bind.Cap.(TIBC Juan C's ) [facility], ) UIBC 172 ug/dL Normal (applies to MEDGEN (St non-numeric Juan C's results) [facility]) Iron 76 ug/dL Normal (applies to MEDGEN (St [Mass/volume] non-numeric Juan C's in Serum or results) Medical, ) Plasma Iron 31 % Normal (applies to MEDGEN (St saturation non-numeric Juan C's [Mass results) Medical, ) Fraction] in Serum or Plasma ID Date Data Source [id number] 03/22/2020 12:00:00 AM EDT [facility] ) Name Value Range Interpretation Description Data Sup porting Code Source(s) Document(s ) Protein,Tot 101.5 Normal (applies to MEDGEN (S t al,Urine mg/dL non-numeric Juan C's results) Medical, ) Albumin, U 36.2 % Normal (applies to MEDGEN (St non-numeric Juan C's results) Medical, ) Alpha-1-Nadine 5.7 % Normal (applies to MEDGEN (S t bulin, U non-numeric Juan C's results) Medical, ) Alpha-2-Nadine 12.8 % Normal (applies to MEDGEN (S t bulin, U non-numeric Juan C's results) Medical, ) Beta 29.7 % Normal (applies to MEDGEN (St Globulin, U non-numeric Juan C's results) Medical, ) Gamma 15.6 % Normal (applies to MEDGEN (St Globulin, U non-numeric Juan C's results) Medical, ) Please Normal (applies to MEDGEN (St note: non-numeric Juan C's results) Medical, ) M-Kevyn, % Comment: Normal (applies to MEDGEN (St non-numeric Juan C's results) Medical, ) PDF . Normal (applies to MEDGEN (St non-numeric Juan C's results) Medical, ) ID Date Data Source [id number] 03/22/2020 12:00:00 AM EDT [facility] ([facility] ) Name Value Range Interpretation Description Data Sup porting Code Source(s) Document(s ) Microalbumin 4.0 g/dL Normal (applies MEDGEN (St [Mass/time] in to non-numeric Juan C's Urine collected results) Medical, for unspecified PC) duration Uvwzq-1-Fzcdvump 0.2 g/dL Normal (applies MEDGEN (St to non-numeric Juan C's results) Medical, ) Xfygw-3-Clzkukst 0.8 g/dL Normal (applies MEDGEN (St to [...] Above high normal [facility] ([facility], [facility]) Globulin, Total 5.1 g/dL Above high normal [facility] ([facility], [facility]) A/G Ratio 0.8 Normal (applies MEDGEN (St to non-numeric Juan C's results) Medical, PC) Please note: Normal (applies MEDGEN (St to non-numeric Juan C's results) Medical, PC) PDF . Normal (applies MEDGEN (St to non-numeric Juan C's results) Medical, PC) ID Date Data Source [id number] 03/22/2020 12:00:00 AM EDT [facility] ([facility], ) Name Value Range Interpretation Description [...] results) Medical, PC) ID Date Data Source [id number] 03/22/2020 12:00:00 AM EDT MEDGEN (St [facility] [...] results) Medical, PC) fluid by Light microscopy Mucus Threads Present Normal (applies MEDGEN (St to non-numeric Juan C's results) Medical, PC) ID Date Data Source [id number] 03/22/2020 12:00:00 AM EDT MEDGEN (St [facility] [...] mL/min/1 Juan C's .73 Medical, ) Sodium 134 Normal (applies MEDGEN [...] Ratio 0.8 Below low normal MED[facility] ([facility], ) Bilirubin.total 0.4 Normal (applies MEDGEN [...] Serum or Plasma ID Date Data Source [id number] 03/22/2020 12:00:00 AM EDT [facility] ([facility], ) Name Value Range Interpretation Description Data Sup porting Code Source(s) Document(s ) Leukocytes 11.7 Above high normal MEDGEN (St [#/volume] in x10E3/uL Juan C's Blood by [facility], ) Automated count Erythrocytes 2.47 Below lower panic MEDGEN (S t [#/volume] in x10E6/uL limits Juan C's Blood by [facility], ) Automated count Hemoglobin 8.2 g/dL Below low normal MEDGEN (St [Mass/volume] in Juan C's Blood [facility], ) Hematocrit 23.3 % Below low normal MEDGEN (St [Volume Juan C's Fraction] of [facility], ) Blood by Automated count MCV 94 fL Normal (applies MEDGEN (St to non-numeric Juan C's results) [facility]) MCH 33.2 pg Above high normal MEDGEN ([facility], ) MCHC 35.2 Normal (applies MEDGEN (St g/dL to non-numeric Juan C's results) [facility]) RDW 19.0 % Above high normal MEDGEN ([facility], ) Platelets 198 Normal (applies MEDGEN (St [#/area] in x10E3/uL to non-numeric Juan C's Blood by results) [facility]) Microscopy high power field Neutrophils [#] 54 % Normal (applies MEDGEN ( St in Body fluid by to non-numeric Juan C's Manual count results) [facility], ) Lymphs 13 % Normal (applies MEDGEN (St to non-numeric Juan C's results) [facility], ) Monocytes 16 % Normal (applies MEDGEN (St [#/volume] in to non-numeric Juan C's Cord blood results) [facility], ) Eos 11 % Normal (applies MEDGEN (St to non-numeric Juan C's results) [facility]) Neutrophils 6.4 Normal (applies MEDGEN (St (Absolute) x10E3/uL to non-numeric Juan C's results) [facility]) Basos 1 % Normal (applies MEDGEN (St to non-numeric Juan C's results) [facility]) Lymphs 1.5 Normal (applies MEDGEN (St (Absolute) x10E3/uL to non-numeric Juan C's results) [facility], ) Monocytes(Absolu 1.9 Above high normal MEDGE N (St te) x10E3/uL [facility]) Eos (Absolute) 1.3 Above high normal MEDGEN (St x10E3/uL [facility], [facility]) Baso (Absolute) 0.1 Normal (applies MEDGEN ( St x10E3/uL to non-numeric Juan C's results) Medical, ) Immature 5 % Normal (applies MEDGEN (St Granulocytes to non-numeric Juan C's results) Medical, ) Immature Grans 0.6 Above high normal MEDGEN (St (Abs) x10E3/uL [facility], [facility]) NRBC 4 % Above high normal [facility] ([facility], ) ID Date Data Source [id number] 03/22/2020 12:00:00 AM EDT [facility] ([facility] ) Name Value Range Interpretation Code Description Data Lisa rce(s) Supporting Document(s ) ID Date Data Source [id number] 03/22/2020 12:00:00 AM EDT [facility] ) Name Value Range Interpretation Code Description Data Supporting Source(s) Document(s ) PTH, Intact 10 pg/mL Below low normal [facility] ([facility], ) ID Date Data Source [id number] 03/22/2020 12:00:00 AM EDT [facility] ) Name Value Range Interpretation Code Description Data Supporting Source(s) Document(s ) Ferritin, 349 ng/mL Normal (applies to MEDGEN (St Serum non-numeric Juan C's results) Medical, ) ID Date Data Source [id number] 03/22/2020 12:00:00 AM EDT [facility] ([facility], ) Name Value Range Interpretation Description Data Sup porting Code Source(s) Document(s ) Deprecated 5.4 mg/dL Above high normal MEDGEN (St Phosphorus Juan C's [Mass/time] in Medical, ) 24 hour Urine ID Date Data Source [id number] 03/22/2020 12:00:00 AM EDT [facility] ([facility] ) Name Value Range Interpretation Code Description Data Lisa rce(s) Supporting Document(s ) ID Date Data Source [id number] 03/22/2020 12:00:00 AM EDT [facility] ([facility], ) Name Value Range Interpretation Description Data Sup porting Code Source(s) Document(s ) Vitamin D, 30.6 Normal (applies to MEDGEN (St 25-Hydroxy ng/mL non-numeric Juan C's results) [facility], ) ID Date Data Source [id number] 03/22/2020 12:00:00 AM EDT [facility] ([facility], ) Name Value Range Interpretation Description Data Sup porting Code Source(s) Document(s ) Free [place] 110.44 Above high normal MEDGEN (St Lt mg/L [facility], ) Free [place] 141.85 Above high normal MEDGEN (St Lt mg/L [facility], ) [place] 1.28 Normal (applies to MEDGEN (S t a Ratio,U non-numeric Juan C's results) [facility], ) ID Date Data Source [id number] 03/22/2020 12:00:00 AM EDT MED[facility] ([facility], ) Name Value Range Interpretation Description Data Sup porting Code Source(s) Document(s ) Free [place] 41.1 mg/L Above high normal MEDGEN (St Lt Chains,S [facility], ) Free [place]ambda 176.0 mg/L Above high normal MEDGEN (S t Lt Chains,S [facility], ) [place] 0.23 Below low normal MEDGEN (St a Ratio,S [facility], ) ID Date Data Source [id number] 03/22/2020 12:00:00 AM EDT MEDGEN ([facility], ) Name Value Range Interpretation Code Description Data Supporting Source(s) Document(s ) Creatinine 94.7 mg/dL Normal (applies to MEDGEN (S t , Urine non-numeric Juan C's results) [facility], ) Protein/Cr 1072 mg/g Above high normal MEDGEN (St eat Ratio creat [facility], ) ID Date Data Source [id number] 03/22/2020 12:00:00 AM EDT MED[facility] ([facility], ) Name Value Range Interpretation Description Data Sup porting Code Source(s) Document(s ) Immunoglobulin G, 3867 Above high normal MEDG EN (St Qn, Serum mg/dL [facility]'s [facility], ) Immunoglobulin M, 8 mg/dL Below low normal MEDGE N (St Qn, Serum [facility], ) Immunoglobulin A, 17 mg/dL Below low normal MEDGE N (St Qn, Serum [facility], ) ID Date Data Source [id number] 03/22/2020 12:00:00 AM EDT MEDGEN ([facility], ) Name Value Range Interpretation Description Data Sup porting Code Source(s) Document(s ) Iron 248 ug/dL Below low normal MEDGEN (St Bind.Cap.(TIBC Juan [facility]'s ) [facility], ) UIBC 172 ug/dL Normal (applies to MEDGEN (St non-numeric Juan C's results) [facility]) Iron 76 ug/dL Normal (applies to MEDGEN (St [Mass/volume] non-numeric Juan [facility] in Serum or results) [facility]) Plasma Iron 31 % Normal (applies to MEDGEN (St saturation non-numeric Juan [facility]'s [Mass results) [facility]) Fraction] in Serum or Plasma ID Date Data Source [id number] 03/22/2020 12:00:00 AM EDT MEDGEN ([facility], ) Name Value Range Interpretation Code Description Data Supporting Source(s) Document(s ) Protein,To 101.5 Normal (applies to MEDGEN (St ruth,Urine mg/dL non-numeric Juan C's results) [facility]) Albumin, U 36.2 % Normal (applies to MEDGEN (St non-numeric [facility]'s results) [facility]) Alpha-1-Gl 5.7 % Normal (applies to MEDGEN (St obulin, U non-numeric Juan C's results) [facility]) Beta 29.7 % Normal (applies to MEDGEN (St Globulin, non-numeric Juan C's U results) [facility]) Alpha-2-Gl 12.8 % Normal (applies to MEDGEN (St obulin, U non-numeric [facility]'s results) [facility]) Gamma 15.6 % Normal (applies to MEDGEN (St Globulin, non-numeric Juan [facility]'s U results) [facility]) M-Kevyn, % Comment: Normal (applies to MEDGEN (St non-numeric [facility]'s results) [facility], ) PDF . Normal (applies to MEDGEN (St non-numeric [facility] results) [facility], ) ID Date Data Source [id number] 03/22/2020 12:00:00 AM EDT MEDGEN ([facility], ) Name Value Range Interpretation Description Data Sup porting Code Source(s) Document(s ) Microalbumin 4.0 g/dL Normal (applies MEDGEN (St [Mass/time] in to non-numeric [facility] Urine collected results) Medical, for unspecified PC) duration Bzdnz-5-Udlwcuoi 0.2 g/dL Normal (applies MEDGEN (St to non-numeric [facility] results) Medical, PC) Beta globulin 0.7 g/dL Normal (applies MEDGEN (St [Mass/volume] in to non-numeric [facility] Urine by results) Medical, Electrophoresis PC) Dvwbt-7-Aocuzaav 0.8 g/dL Normal (applies MEDGEN (St to non-numeric [facility]'s results) [facility], PC) Gamma globulin 3.5 g/dL Above high normal MEDGEN (St [Mass/volume] by Juan [facility]'s Electrophoresis in Medical, Urine collected PC) for unspecified duration M-Kevyn 3.2 g/dL Above high normal MEDGEN ([facility], ) Globulin, Total 5.1 g/dL Above high normal MEDGEN ([facility], ) A/G Ratio 0.8 Normal (applies MEDGEN (St to non-numeric [facility]'s results) [facility], PC) PDF . Normal (applies MEDGEN (St to non-numeric [facility] results) [facility], ) ID Date Data Source [id number] 03/22/2020 12:00:00 AM EDT MEDGEN ([facility], ) Name Value Range Interpretation Description Data Sup porting Code Source(s) Document(s ) Specific gravity 1.015 Normal (applies MEDGEN (St of Pericardial to non-numeric Juan C's fluid by results) Medical, Refractometry ) Urine-Color Yellow Normal (applies MEDGEN (St to non-numeric [facility]'s results) Medical, PC) pH of Lower 5.0 Normal (applies MEDGEN (St respiratory to non-numeric [facility]'s specimen results) Medical, ) WBC Esterase Negative Normal [...] results) Medical, PC) ID Date Data Source [id number] 03/22/2020 12:00:00 AM EDT MEDGEN ([facility] [...] by Light microscopy ID Date Data Source [id number] 03/22/2020 12:00:00 AM EDT [facility], ) Name Value Range Interpretation Description Data Sup porting Code Source(s) Document(s ) Glucose 88 mg/dL Normal (applies MEDGEN (St [Mass/volume] in to non-numeric [facility] Urine collected for results) Medical, unspecified PC) duration Urea nitrogen 61 mg/dL Above high MEDGEN (St [Mass/volume] in normal Juan C's Serum or Plasma [facility], ) Creatinine 5.97 Above high MEDGEN (St [Interpretation] in mg/dL normal [facility] Urine [facility], ) eGFR If Africn Am 10 Below low normal MEDGE N (St mL/min/[address], ) eGFR If NonAfricn 9 Below low normal MEDGE N (St Am mL/min/[address], ) BUN/Creatinine 10 Normal (applies MEDGEN (S t Ratio to non-numeric [facility] results) Medical, ) Sodium 134 Normal (applies MEDGEN (St [Moles/volume] in mmol/L to non-numeric [facility] Serum or Plasma results) [facility], ) Potassium 4.1 Normal (applies MEDGEN (St [Mass/volume] in mmol/L to non-numeric [facility] Blood results) [facility], ) Chloride 98 Normal (applies MEDGEN (St [Moles/volume] in mmol/L to non-numeric [facility] Serum or Plasma results) [facility], ) Carbon dioxide, 20 Normal (applies [...] in normal Juan [facility] Serum or Plasma [facility], ) Globulin, Total 5.2 g/dL Above high MEDGEN (St normal [facility], ) A/G Ratio 0.8 Below low normal MEDGEN ([facility], ) Bilirubin.total 0.4 Normal (applies MEDGEN ( St [Mass/volume] in mg/dL to non-numeric Juan [facility]'s Serum or Plasma results) [facility], ) Aspartate 43 IU/L Above high [...] Serum or Plasma ID Date Data Source [id number] 03/22/2020 12:00:00 AM EDT [facility] ([facility], ) Name Value Range Interpretation Description Data Sup porting Code Source(s) Document(s ) Leukocytes 11.7 Above high normal MEDGEN (St [#/volume] in x10E3/uL Juan [facility] Blood by [facility], ) Automated count Erythrocytes 2.47 Below lower panic MEDGEN (S t [#/volume] in x10E6/uL limits Juan C's Blood by [facility], ) Automated count Hematocrit 23.3 % Below low normal MEDGEN (St [Volume Juan C's Fraction] of [facility], ) Blood by Automated count Hemoglobin 8.2 g/dL Below low normal MEDGEN (St [Mass/volume] in Juan C[facility] Blood [facility], ) MCV 94 fL Normal (applies MEDGEN (St to non-numeric Juan C's results) [facility], ) MCH 33.2 pg Above high normal MEDGEN ([facility], ) MCHC 35.2 Normal (applies MEDGEN (St g/dL to non-numeric Juan C's results) [facility], ) Platelets 198 Normal (applies MEDGEN (St [#/area] in x10E3/uL to non-numeric Juan C's Blood by results) [facility], ) Microscopy high power field RDW 19.0 % Above high normal MEDGEN ([facility], ) Neutrophils [#] 54 % Normal (applies MEDGEN ( St in Body fluid by to non-numeric Juan C's Manual count results) [facility], ) Lymphs 13 % Normal (applies MEDGEN (St to non-numeric Juan C's results) [facility], ) Monocytes 16 % Normal (applies MEDGEN (St [#/volume] in to non-numeric Juan C's Cord blood results) [facility], ) Basos 1 % Normal (applies MEDGEN (St to non-numeric Juan C's results) [facility]) Eos 11 % Normal (applies MEDGEN (St to non-numeric Juan C's results) [facility]) Neutrophils 6.4 Normal (applies MEDGEN (St (Absolute) x10E3/uL to non-numeric Juan C's results) [facility], ) Lymphs 1.5 Normal (applies MEDGEN (St (Absolute) x10E3/uL to non-numeric Juan C's results) [facility]) Monocytes(Absolu 1.9 Above high normal MEDGE N (St te) x10E3/uL [facility]) Eos (Absolute) 1.3 Above high normal MEDGEN (St x10E3/uL [facility], ) Baso (Absolute) 0.1 Normal (applies MEDGEN ( St x10E3/uL to non-numeric Juan C's results) [facility], ) Immature 5 % Normal (applies MEDGEN (St Granulocytes to non-numeric Juan C's results) [facility]) NRBC 4 % Above high normal MEDGEN ([facility], ) Immature Grans 0.6 Above high normal MEDGEN (St (Abs) x10E3/uL [facility]) ID Date Data Source [id number] 03/22/2020 12:00:00 AM EDT MEDGEN ([facility], ) Name Value Range Interpretation Description Data Sup porting Code Source(s) Document(s ) Nciia-2-Jozglsxh 0.2 g/dL Normal (applies MEDGEN (St to non-numeric Juan C's results) [facility], ) Microalbumin 4.0 g/dL Normal (applies MEDGEN (St [Mass/time] in to non-numeric [facility] Urine collected results) [facility], for unspecified PC) duration Npqvf-7-Vngvkqpp 0.8 g/dL Normal (applies MEDGEN (St to non-numeric Juan C's results) [facility], ) Gamma globulin 3.5 g/dL Above high normal MEDGEN (St [Mass/volume] by [facility] Electrophoresis in Medical, Urine collected ) for unspecified duration Beta globulin 0.7 g/dL Normal (applies MEDGEN (St [Mass/volume] in to non-numeric [facility] Urine by results) Medical, Electrophoresis PC) M-Kevyn 3.2 g/dL Above high normal MEDGEN ([facility], PC) Globulin, Total 5.1 g/dL Above high normal MEDGEN ([facility], ) A/G Ratio 0.8 Normal (applies MEDGEN (St to non-numeric [facility]'s results) [facility], PC) PDF . Normal (applies MEDGEN (St to non-numeric [facility] C's results) Medical, ) ID Date Data Source [id number] 03/22/2020 12:00:00 AM EDT MEDGEN (St [facility], ) Name Value Range Interpretation Description Data [...] results) Medical, PC) ID Date Data Source [id number] 03/22/2020 12:00:00 AM EDT MEDGEN ([facility], ) Name Value Range Interpretation Description [...] results) Medical, ) ID Date Data Source [id number] 03/22/2020 12:00:00 AM EDT [facility]GEN ([facility], ) Name Value Range Interpretation Description Data Sup porting Code Source(s) Document(s ) Glucose 88 mg/dL Normal (applies MEDGEN (St [Mass/volume] in to non-numeric [facility]'s Urine collected for results) Medical, unspecified ) duration Creatinine 5.97 Above high MEDGEN (St [Interpretation] in mg/dL normal [facility] Urine Medical, PC) Urea nitrogen 61 mg/dL Above high MEDGEN (St [Mass/volume] in normal [facility] C's Serum or Plasma Medical, ) eGFR If NonAfricn 9 Below [...] 5.2 g/dL Above high MEDGEN (St normal [facility], ) A/G Ratio 0.8 Below low normal MEDGEN ([facility], ) Bilirubin.total 0.4 Normal (applies MEDGEN [...] Medical, activity/volume] in PC) Serum or Plasma Aspartate 43 IU/L Above high MEDGEN (St aminotransferase normal Juan C's [Enzymatic Medical, activity/volume] in ) Serum or Plasma ID Date Data Source [id number] 03/22/2020 12:00:00 AM EDT [facility]GEN [facility], ) Name Value Range Interpretation Description Data Sup porting Code Source(s) Document(s ) Leukocytes 11.7 Above high normal MEDGEN (St [#/volume] in x10E3/uL [facility] Blood by [facility], ) Automated count Erythrocytes 2.47 Below lower panic MEDGEN (S t [#/volume] in x10E6/uL limits Juan C's Blood by [facility], ) Automated count Hemoglobin 8.2 g/dL Below low normal MEDGEN (St [Mass/volume] in [facility] C[facility] Blood [facility], ) MCV 94 fL Normal (applies MEDGEN (St to non-numeric Juan C's results) [facility]) Hematocrit 23.3 % Below low normal MEDGEN (St [Volume Juan C's Fraction] of [facility], ) Blood by Automated count MCH 33.2 pg Above high normal MEDGEN ([facility], ) MCHC 35.2 Normal (applies MEDGEN (St g/dL to non-numeric Juan C's results) [facility]) RDW 19.0 % Above high normal MEDGEN ([facility], ) Platelets 198 Normal (applies MEDGEN (St [#/area] in x10E3/uL to non-numeric Juan C's Blood by results) [facility], ) Microscopy high power field Neutrophils [#] 54 % Normal (applies MEDGEN ( St in Body fluid by to non-numeric Juan C's Manual count results) [facility]) Lymphs 13 % Normal (applies MEDGEN (St to non-numeric Juan C's results) [facility]) Monocytes 16 % Normal (applies MEDGEN (St [#/volume] in to non-numeric Juan C's Cord blood results) [facility]) Eos 11 % Normal (applies MEDGEN (St to non-numeric Juan C's results) [facility]) Neutrophils 6.4 Normal (applies MEDGEN (St (Absolute) x10E3/uL to non-numeric Juan C's results) [facility]) Basos 1 % Normal (applies MEDGEN (St to non-numeric Juan C's results) [facility]) Lymphs 1.5 Normal (applies MEDGEN (St (Absolute) x10E3/uL to non-numeric Juan C's results) [facility]) Monocytes(Absolu 1.9 Above high normal MEDGE N (St te) x10E3/uL Juan [facility]) Eos (Absolute) 1.3 Above high normal MEDGEN (St x10E3/uL [facility], ) Immature 5 % Normal (applies MEDGEN (St Granulocytes to non-numeric Juan C's results) [facility], ) Baso (Absolute) 0.1 Normal (applies MEDGEN ( St x10E3/uL to non-numeric Juan C's results) [facility], ) Immature Grans 0.6 Above high normal MEDGEN (St (Abs) x10E3/uL [facility], ) NRBC 4 % Above high normal MEDGEN ([facility], ) ID Date Data Source [id number] 03/22/2020 12:00:00 AM EDT MEDGEN ([facility], ) Name Value Range Interpretation Code Description Data Lisa rce(s) Supporting Document(s ) ID Date Data Source [id number] 03/22/2020 12:00:00 AM EDT MEDGEN (St [facility], ) Name Value Range Interpretation Code Description Data Supporting Source(s) Document(s ) PTH, Intact 10 pg/mL Below low normal MEDGEN ([facility], ) ID Date Data Source [id number] 03/22/2020 12:00:00 AM EDT MEDGEN ([facility], ) Name Value Range Interpretation Code Description Data Supporting Source(s) Document(s ) Ferritin, 349 ng/mL Normal (applies to MEDGEN (St Serum non-numeric Juan C's results) [facility], ) ID Date Data Source [id number] 03/22/2020 12:00:00 AM EDT MEDGEN ([facility], ) Name Value Range Interpretation Description Data Sup porting Code Source(s) Document(s ) Deprecated 5.4 mg/dL Above high normal MEDGEN (St Phosphorus Juan C's [Mass/time] in [facility], ) 24 hour Urine ID Date Data Source [id number] 03/22/2020 12:00:00 AM EDT MEDGEN ([facility], ) Name Value Range Interpretation Code Description Data Lisa rce(s) Supporting Document(s ) RAGINI Normal (applies to MEDGEN (St Interpreta non-numeric results) [facility]'s M edical, tion:U PC) ID Date Data Source [id number] 03/22/2020 12:00:00 AM EDT MEDGEN ([facility], ) Name Value Range Interpretation Description Data Sup porting Code Source(s) Document(s ) Vitamin D, 30.6 Normal (applies to MEDGEN (St 25-Hydroxy ng/mL non-numeric Juan C's results) [facility], ) ID Date Data Source [id number] 03/22/2020 12:00:00 AM EDT MEDGEN ([facility], ) Name Value Range Interpretation Description Data Sup porting Code Source(s) Document(s ) Free [place] 141.85 Above high normal MEDGEN (St Lt mg/L Juan C's [place],Ur [facility], ) Free [place] 110.44 Above high normal MEDGEN (St Lt mg/L Juan C's [place],[facility], ) [place] 1.28 Normal (applies to MEDGEN (S t a Ratio,U non-numeric Juan C's results) [facility]) ID Date Data Source [id number] 03/22/2020 12:00:00 AM EDT MEDGEN ([facility], ) Name Value Range Interpretation Description Data Sup porting Code Source(s) Document(s ) Free [place] 41.1 mg/L Above high normal MEDGEN (St Lt Chains,S [facility], ) [place] 0.23 Below low normal MEDGEN (St a Ratio,S [facility], ) Free [place] 176.0 mg/L Above high normal MEDGEN (S t Lt Chains,S [facility], ) ID Date Data Source [id number] 03/22/2020 12:00:00 AM EDT MEDGEN ([facility], ) Name Value Range Interpretation Code Description Data Supporting Source(s) Document(s ) Creatinine 94.7 mg/dL Normal (applies to MEDGEN (S t , Urine non-numeric Juan C's results) [facility]) Protein/Cr 1072 mg/g Above high normal MEDGEN (St eat Ratio creat [facility], ) ID Date Data Source [id number] 03/22/2020 12:00:00 AM EDT MEDGEN ([facility], ) Name Value Range Interpretation Description Data Sup porting Code Source(s) Document(s ) Immunofixation Normal (applies MEDGEN (S t Result, Serum to non-numeric Juan C's results) [facility], ) Immunoglobulin G, 3867 Above high normal MEDG EN (St Qn, Serum mg/dL [facility]) Immunoglobulin A, 17 mg/dL Below low normal MEDGE N (St Qn, Serum Juan [facility]) Immunoglobulin M, 8 mg/dL Below low normal MEDGE N (St Qn, Serum Juan [facility]'s [facility]) ID Date Data Source [id number] 03/22/2020 12:00:00 AM EDT MEDGEN (St [facility]) Name Value Range Interpretation Description Data Sup porting Code Source(s) Document(s ) Iron 248 ug/dL Below low normal MEDGEN (St Bind.Cap.(TIBC Juan C's ) [facility]) UIBC 172 ug/dL Normal (applies to MEDGEN (St non-numeric Juan C's results) [facility]) Iron 76 ug/dL Normal (applies to MEDGEN (St [Mass/volume] non-numeric Juan C's in Serum or results) [facility]) Plasma Iron 31 % Normal (applies to MEDGEN (St saturation non-numeric Juan C's [Mass results) [facility]) Fraction] in Serum or Plasma ID Date Data Source [id number] 03/22/2020 12:00:00 AM EDT [facility], ) Name Value Range Interpretation Description Data Sup porting Code Source(s) Document(s ) Protein,Tot 101.5 Normal (applies to MEDGEN (S t al,Urine mg/dL non-numeric Juan C's results) [facility]) Albumin, U 36.2 % Normal (applies to MEDGEN (St non-numeric Juan C's results) [facility]) Alpha-1-Nadine 5.7 % Normal (applies to MEDGEN (S t bulin, U non-numeric Juan C's results) [facility]) Alpha-2-Nadine 12.8 % Normal (applies to MEDGEN (S t bulin, U non-numeric Juan C's results) [facility]) Gamma 15.6 % Normal (applies to MEDGEN (St Globulin, U non-numeric Juan [facility]'s results) [facility]) Beta 29.7 % Normal (applies to MEDGEN (St Globulin, U non-numeric Juan [facility]'s results) [facility]) M-Kevyn, % Comment: Normal (applies to MEDGEN (St non-numeric Juan C's results) [facility], ) Please Normal (applies to MEDGEN (St note: non-numeric Juan [facility]'s results) Medical, PC) PDF . Normal (applies to MEDGEN (St non-numeric [facility]'s results) [facility], PC) ID Date Data Source [id number] 03/22/2020 12:00:00 AM EDT MEDGEN ([facility]) Name Value Range Interpretation Description Data Sup porting Code Source(s) Document(s ) Microalbumin 4.0 g/dL Normal (applies MEDGEN (St [Mass/time] in to non-numeric Juan [facility]'s Urine collected results) Medical, for unspecified PC) duration Qbvlu-2-Wneivene 0.2 g/dL Normal (applies MEDGEN (St to non-numeric Juan C's results) Medical, PC) Umymj-8-Csewuhzi 0.8 g/dL Normal (applies MEDGEN (St to [...] Above high normal [facility]GEN ([facility], [facility]) Globulin, Total 5.1 g/dL Above high normal [facility] ([facility], [facility]) A/G Ratio 0.8 Normal (applies MEDGEN (St to non-numeric Juan [facility]'s results) Medical, PC) Please note: Normal (applies MEDGEN (St to non-numeric Juan C's results) Medical, PC) PDF . Normal (applies MEDGEN (St to non-numeric Juan [facility]'s results) [facility], PC) ID Date Data Source [id number] 03/22/2020 12:00:00 AM EDT MEDGEN ([facility] [...] results) Medical, ) ID Date Data Source [id number] 03/22/2020 12:00:00 AM EDT MEDGEN (St Julienne [...] by Light microscopy ID Date Data Source [id number] 03/22/2020 12:00:00 AM EDT MEDGEN ([facility], ) Name Value Range Interpretation Description [...] low normal MEDGE N (St Am mL/min/1 [facility]'s .73 [facility], ) eGFR If Africn Am 10 Below low normal MEDGE N (St mL/min/1 [facility]'s [facility], ) BUN/Creatinine 10 Normal (applies MEDGEN [...] 5.2 g/dL Above high MEDGEN (St normal [facility], ) A/G Ratio 0.8 Below low normal MEDGEN ([facility], ) Bilirubin.total 0.4 Normal (applies MEDGEN ( St [Mass/volume] in mg/dL to non-numeric Juan C's Serum or Plasma results) [facility], ) Alkaline 63 IU/L Normal (applies MEDGEN (St phosphatase to non-numeric Juan C's [Enzymatic results) Medical, activity/volume] in ) Serum, Plasma or Blood Aspartate 43 IU/L Above high MEDGEN (St aminotransferase normal Juan C's [Enzymatic Medical, activity/volume] in ) Serum or Plasma Alanine 43 IU/L Normal (applies MEDGEN (St aminotransferase to non-numeric Juan C's [Enzymatic results) [facility], activity/volume] in ) Serum or Plasma ID Date Data Source [id number] 03/22/2020 12:00:00 AM EDT MEDGEN ([facility], ) Name Value Range Interpretation Description Data Sup porting Code Source(s) Document(s ) Leukocytes 11.7 Above high normal MEDGEN (St [#/volume] in x10E3/uL Juan C's Blood by [facility]) Automated count Erythrocytes 2.47 Below lower panic MEDGEN (S t [#/volume] in x10E6/uL limits Juan [facility]'s Blood by [facility], ) Automated count Hematocrit 23.3 % Below low normal MEDGEN (St [Volume Juan C's Fraction] of [facility], ) Blood by Automated count Hemoglobin 8.2 g/dL Below low normal MEDGEN (St [Mass/volume] in [facility]'s Blood [facility], ) MCV 94 fL Normal (applies MEDGEN (St to non-numeric Juan C's results) [facility]) MCH 33.2 pg Above high normal MEDGEN ([facility], ) MCHC 35.2 Normal (applies MEDGEN (St g/dL to non-numeric Juan C's results) [facility]) RDW 19.0 % Above high normal MEDGEN ([facility], ) Platelets 198 Normal (applies MEDGEN (St [#/area] in x10E3/uL to non-numeric Juan [facility]'s Blood by results) [facility], ) Microscopy high power field Neutrophils [#] 54 % Normal (applies MEDGEN ( St in Body fluid by to non-numeric Juan C's Manual count results) Medical, ) Lymphs 13 % Normal (applies MEDGEN (St to non-numeric Juan C's results) [facility], ) Monocytes 16 % Normal (applies MEDGEN (St [#/volume] in to non-numeric Juan C's Cord blood results) [facility], ) Eos 11 % Normal (applies MEDGEN (St to non-numeric Juan C's results) [facility], ) Basos 1 % Normal (applies MEDGEN (St to non-numeric Juan C's results) [facility], ) Neutrophils 6.4 Normal (applies MEDGEN (St (Absolute) x10E3/uL to non-numeric Juan C's results) [facility], ) Lymphs 1.5 Normal (applies MEDGEN (St (Absolute) x10E3/uL to non-numeric Juan C's results) [facility], ) Monocytes(Absolu 1.9 Above high normal MEDGE N (St te) x10E3/uL [facility], ) Baso (Absolute) 0.1 Normal (applies MEDGEN ( St x10E3/uL to non-numeric Juan C's results) [facility], ) Eos (Absolute) 1.3 Above high normal MEDGEN (St x10E3/uL [facility], ) Immature 5 % Normal (applies MEDGEN (St Granulocytes to non-numeric Juan C's results) [facility], ) Immature Grans 0.6 Above high normal MEDGEN (St (Abs) x10E3/uL [facility], ) NRBC 4 % Above high normal MEDGEN ([facility], ) ID Date Data Source [id number] 03/22/2020 12:00:00 AM EDT MEDGEN ([facility], ) Name Value Range Interpretation Code Description Data Lisa rce(s) Supporting Document(s ) ID Date Data Source [id number] 03/22/2020 12:00:00 AM EDT MEDGEN ([facility], ) Name Value Range Interpretation Code Description Data Supporting Source(s) Document(s ) PTH, Intact 10 pg/mL Below low normal MEDGEN ([facility], ) ID Date Data Source [id number] 03/22/2020 12:00:00 AM EDT MEDGEN ([facility] [facility], ) Name Value Range Interpretation Code Description Data Supporting Source(s) Document(s ) Ferritin, 349 ng/mL Normal (applies to MEDGEN (St Serum non-numeric Juan C's results) [facility], ) ID Date Data Source [id number] 03/22/2020 12:00:00 AM EDT MED[facility] ([facility], ) Name Value Range Interpretation Description Data Sup porting Code Source(s) Document(s ) Deprecated 5.4 mg/dL Above high normal MEDGEN (St Phosphorus Juan C's [Mass/time] in [facility], ) 24 hour Urine ID Date Data Source [id number] 03/22/2020 12:00:00 AM EDT [facility] ([facility], ) Name Value Range Interpretation Code Description Data Lisa rce(s) Supporting Document(s ) RAGINI Normal (applies to MEDGEN (St Interpreta non-numeric results) Juan C's M edical, tion:U ) ID Date Data Source [id number] 03/22/2020 12:00:00 AM EDT [facility] ([facility], ) Name Value Range Interpretation Description Data Sup porting Code Source(s) Document(s ) Vitamin D, 30.6 Normal (applies to MEDGEN (St 25-Hydroxy ng/mL non-numeric Juan C's results) [facility], ) ID Date Data Source [id number] 03/22/2020 12:00:00 AM EDT [facility] ([facility], ) Name Value Range Interpretation Description Data Sup porting Code Source(s) Document(s ) Free [place] 141.85 Above high normal MEDGEN (St Lt mg/L Juan C's [facility]ains,[facility], ) Free [place] 110.44 Above high normal MEDGEN (St Lt mg/L Juan C's [facility]ains,[facility], ) [place] 1.28 Normal (applies to MEDGEN (S t a Ratio,U non-numeric Juan C's results) [facility], ) ID Date Data Source [id number] 03/22/2020 12:00:00 AM EDT MED[facility] ([facility], ) Name Value Range Interpretation Description Data Sup porting Code Source(s) Document(s ) Free [place] 41.1 mg/L Above high normal MEDGEN (St Lt Chains,S [facility], ) Free [place]ambda 176.0 mg/L Above high normal MEDGEN (S t Lt Chains,S [facility], ) [place] 0.23 Below low normal MEDGEN (St a Ratio,S [facility]) ID Date Data Source [id number] 03/22/2020 12:00:00 AM EDT MEDGEN ([facility]) Name Value Range Interpretation Code Description Data Supporting Source(s) Document(s ) Creatinine 94.7 mg/dL Normal (applies to MEDGEN (S t , Urine non-numeric Juan C's results) [facility]) Protein/Cr 1072 mg/g Above high normal MEDGEN (St eat Ratio creat [facility]) ID Date Data Source [id number] 03/22/2020 12:00:00 AM EDT MEDGEN ([facility]) Name Value Range Interpretation Description Data Sup porting Code Source(s) Document(s ) Immunofixation Normal (applies MEDGEN (S t Result, Serum to non-numeric Juan C's results) [facility]) Immunoglobulin G, 3867 Above high normal MEDG EN (St Qn, Serum mg/dL [facility]) Immunoglobulin A, 17 mg/dL Below low normal MEDGE N (St Qn, Serum [facility]) Immunoglobulin M, 8 mg/dL Below low normal MEDGE N (St Qn, Serum [facility]) ID Date Data Source [id number] 03/22/2020 12:00:00 AM EDT MEDGEN ([facility]) Name Value Range Interpretation Description Data Sup porting Code Source(s) Document(s ) Iron 248 ug/dL Below low normal MEDGEN (St Bind.Cap.(TIBC Juan C's ) [facility]) UIBC 172 ug/dL Normal (applies to MEDGEN (St non-numeric Juan C's results) [facility]) Iron 31 % Normal (applies to MEDGEN (St saturation non-numeric Juan C's [Mass results) [facility]) Fraction] in Serum or Plasma Iron 76 ug/dL Normal (applies to MEDGEN (St [Mass/volume] non-numeric Juan C's in Serum or results) [facility], ) Plasma ID Date Data Source [id number] 03/22/2020 12:00:00 AM EDT MEDGEN ([facility]) Name Value Range Interpretation Description Data Sup [...] results) Medical, PC) ID Date Data Source [id number] 03/22/2020 12:00:00 AM EDT [facility] ([facility], ) Name Value Range Interpretation Description Data Sup porting Code Source(s) Document(s ) Microalbumin 4.0 g/dL Normal (applies MEDGEN (St [Mass/time] in to non-numeric Juan C's Urine collected results) Medical, for unspecified PC) duration Qeycf-5-Dtmxxbkd 0.2 g/dL Normal (applies [facility] (St to non-numeric Juan C's results) Medical, PC) Beta globulin 0.7 g/dL Normal (applies MEDGEN (St [Mass/volume] in to non-numeric Juan C's Urine by results) Medical, Electrophoresis PC) Zwszr-8-Scsffajw 0.8 g/dL Normal (applies [facility]GEN (St to non-numeric Juan C's results) Medical, PC) Gamma globulin 3.5 g/dL Above high normal MEDGEN (St [Mass/volume] by Juan C's Electrophoresis in Medical, Urine collected PC) for unspecified duration M-Kevyn 3.2 g/dL Above high normal [facility] ([facility], [facility]) Globulin, Total 5.1 g/dL Above high normal [facility] ([facility], [facility]) A/G Ratio 0.8 Normal (applies MEDGEN (St to non-numeric Juan C's results) Medical, PC) Please note: Normal (applies MEDGEN (St to non-numeric Juan C's results) Medical, PC) PDF . Normal (applies [facility]GEN (St to non-numeric Juan C's results) [facility], PC) ID Date Data Source [id number] 03/22/2020 12:00:00 AM EDT MEDGEN ([facility] [...] results) Medical, PC) ID Date Data Source [id number] 03/22/2020 12:00:00 AM EDT [facility] ([facility], ) Name Value Range Interpretation Description [...] to non-numeric Juan C's results) [facility], PC) Crystal Type Calcium Normal (applies MEDGEN (St Oxalate to non-numeric Juan C's results) Medical, PC) Bacteria Few Normal (applies MEDGEN (St [Presence] in to non-numeric Juan C's Prostatic results) Medical, PC) fluid by Light microscopy ID Date Data Source [id number] 03/22/2020 12:00:00 AM EDT [facility] ([facility], ) Name Value Range Interpretation Description [...] 5.2 g/dL Above high MEDGEN (St normal [facility], ) A/G Ratio 0.8 Below low normal MEDGEN ([facility], ) Bilirubin.total 0.4 Normal (applies MEDGEN [...] Serum or Plasma ID Date Data Source [id number] 03/22/2020 12:00:00 AM EDT [facility] ([facility], ) Name Value Range Interpretation Description Data Sup porting Code Source(s) Document(s ) Leukocytes 11.7 Above high normal MEDGEN (St [#/volume] in x10E3/uL Juan C's Blood by [facility], ) Automated count Erythrocytes 2.47 Below lower panic MEDGEN (S t [#/volume] in x10E6/uL limits Juan C's Blood by [facility], ) Automated count Hemoglobin 8.2 g/dL Below low normal MEDGEN (St [Mass/volume] in Juan C's Blood [facility], ) MCV 94 fL Normal (applies MEDGEN (St to non-numeric Juan C's results) [facility]) Hematocrit 23.3 % Below low normal MEDGEN (St [Volume Juan C's Fraction] of [facility], ) Blood by Automated count MCH 33.2 pg Above high normal [facility] ([facility], ) MCHC 35.2 Normal (applies MEDGEN (St g/dL to non-numeric Juan C's results) [facility]) RDW 19.0 % Above high normal [facility] ([facility], ) Platelets 198 Normal (applies MEDGEN (St [#/area] in x10E3/uL to non-numeric Juan C's Blood by results) [facility]) Microscopy high power field Neutrophils [#] 54 % Normal (applies MEDGEN ( St in Body fluid by to non-numeric Juan C's Manual count results) [facility], ) Lymphs 13 % Normal (applies MEDGEN (St to non-numeric Juan C's results) [facility]) Monocytes 16 % Normal (applies MEDGEN (St [#/volume] in to non-numeric Juan C's Cord blood results) [facility]) Eos 11 % Normal (applies MEDGEN (St to non-numeric Juan C's results) [facility]) Basos 1 % Normal (applies MEDGEN (St to non-numeric Juan C's results) [facility]) Neutrophils 6.4 Normal (applies MEDGEN (St (Absolute) x10E3/uL to non-numeric Juan C's results) [facility]) Lymphs 1.5 Normal (applies MEDGEN (St (Absolute) x10E3/uL to non-numeric Juan C's results) [facility]) Monocytes(Absolu 1.9 Above high normal MEDGE N (St te) x10E3/uL Juan C's [facility]) Eos (Absolute) 1.3 Above high normal MEDGEN (St x10E3/uL [facility]) Baso (Absolute) 0.1 Normal (applies MEDGEN ( St x10E3/uL to non-numeric Juan C's results) [facility], ) Immature 5 % Normal (applies MEDGEN (St Granulocytes to non-numeric Juan C's results) [facility], ) Immature Grans 0.6 Above high normal MEDGEN (St (Abs) x10E3/uL [facility], ) NRBC 4 % Above high normal [facility] ([facility], ) ID Date Data Source [id number] 03/22/2020 12:00:00 AM EDT [facility] ([facility], ) Name Value Range Interpretation Code Description Data Lisa rce(s) Supporting Document(s ) ID Date Data Source [id number] 03/22/2020 12:00:00 AM EDT [facility] ([facility], ) Name Value Range Interpretation Code Description Data Supporting Source(s) Document(s ) PTH, Intact 10 pg/mL Below low normal [facility] ([facility], ) PTH, Intact 14 pg/mL Below low normal [facility] ([facility], ) ID Date Data Source [id number] 03/22/2020 12:00:00 AM EDT [facility] ([facility], ) Name Value Range Interpretation Code Description Data Supporting Source(s) Document(s ) Ferritin, 349 ng/mL Normal (applies to MEDGEN (St Serum non-numeric Juan C's results) [facility], ) Ferritin, 329 ng/mL Normal (applies to MEDGEN (St Serum non-numeric Juan C's results) [facility], ) ID Date Data Source [id number] 03/22/2020 12:00:00 AM EDT [facility] ([facility], ) Name Value Range Interpretation Description Data Sup porting Code Source(s) Document(s ) Deprecated 5.4 mg/dL Above high normal MEDGEN (St Phosphorus Juan C's [Mass/time] in Medical, ) 24 hour Urine Deprecated 4.8 mg/dL Above high normal MEDGEN (St Phosphorus Juan C's [Mass/time] in [facility], ) 24 hour Urine ID Date Data Source [id number] 03/22/2020 12:00:00 AM EDT [facility] ([facility], ) Name Value Range Interpretation Code Description Data Lisa rce(s) Supporting Document(s ) ID Date Data Source [id number] 03/22/2020 12:00:00 AM EDT [facility] ([facility]) Name Value Range Interpretation Description Data Sup porting Code Source(s) Document(s ) Vitamin D, 42.8 Normal (applies to MEDGEN (St 25-Hydroxy ng/mL non-numeric Juan C's results) Medical, PC) Vitamin D, 30.6 Normal (applies to [facility]GEN (St 25-Hydroxy ng/mL non-numeric Juan C's results) Medical, PC) Vitamin D, 36.2 Normal (applies to MEDGEN (St 25-Hydroxy ng/mL non-numeric Juan C's results) [facility], PC) ID Date Data Source [id number] 03/22/2020 12:00:00 AM EDT [facility] ([facility]) Name Value Range Interpretation Description Data Sup porting Code Source(s) Document(s ) Free [place] 141.85 Above high normal MEDGEN (St Lt mg/L [facility]'s Chains,[facility], [facility]) Free [place] 110.44 Above high normal MEDGEN (St Lt mg/L [facility]) [place] 1.28 Normal (applies to MEDGEN (S t a Ratio,U non-numeric Juan C's results) Medical, ) Free [place] 476.00 Above high normal MEDGEN (St Lt mg/L [facility]) [place] 10.70 Above high normal MEDGEN (St a Ratio,U [facility]) Free [place]ambda 44.50 mg/L Above high normal MEDGEN (S t Lt [facility] C's [facility]ains,[facility]) ID Date Data Source [id number] 03/22/2020 12:00:00 AM EDT [facility] ([facility]) Name Value Range Interpretation Description Data Sup porting Code Source(s) Document(s ) Free [place] 41.1 mg/L Above high normal MEDGEN (St Lt Chains,S [facility]) Free [place] 176.0 mg/L Above high normal MEDGEN (S t Lt Chains,S [facility]) [place] 0.23 Below low normal MEDGEN (St a Ratio,S [facility]) Free [place] 38.9 mg/L Above high normal MEDGEN (St Lt Chains,S [facility], ) Free Lambda 133.0 mg/L Above high normal MEDGEN (S t Lt Chains,S [facility], ) [place] 0.29 Normal (applies to MEDGEN (S t a Ratio,S non-numeric Juan C's results) [facility]) ID Date Data Source [id number] 03/22/2020 12:00:00 AM EDT MEDGEN (St [facility], ) Name Value Range Interpretation Code Description Data Supporting Source(s) Document(s ) Creatinine 94.7 mg/dL Normal (applies to MEDGEN (S t , Urine non-numeric Juan C's results) [facility]) Protein/Cr 1072 mg/g Above high normal MEDGEN (St eat Ratio creat [facility], ) Creatinine 175.9 Normal (applies to MEDGEN (St , Urine mg/dL non-numeric Juan C's results) [facility]) Protein/Cr 833 mg/g Above high normal [facility] ([facility] ID Date Data Source [id number] 03/22/2020 12:00:00 AM EDT MEDGEN ([facility], ) Name Value Range Interpretation Description Data Sup porting Code Source(s) Document(s ) Immunoglobulin G, 3867 Above high normal MEDG EN (St Qn, Serum mg/dL [facility]) Immunoglobulin A, 17 mg/dL Below low normal MEDGE N (St Qn, Serum [facility], ) Immunoglobulin M, 8 mg/dL Below low normal MEDGE N (St Qn, Serum [facility], ) Immunoglobulin G, 3973 Above high normal MEDG EN (St Qn, Serum mg/dL [facility]) Immunoglobulin A, 25 mg/dL Below low normal MEDGE N (St Qn, Serum [facility], ) Immunoglobulin M, 13 mg/dL Below low normal MEDGE N (St Qn, Serum [facility], ) ID Date Data Source [id number] 03/22/2020 12:00:00 AM EDT MEDGEN ([facility], ) Name Value Range Interpretation Description Data Sup porting Code Source(s) Document(s ) Iron 248 ug/dL Below low normal MEDGEN (St Bind.Cap.(TIBC Juan C's ) Medical, ) UIBC 172 ug/dL Normal (applies to MEDGEN (St non-numeric Juan C's results) Medical, ) Iron 76 ug/dL Normal (applies to MEDGEN (St [Mass/volume] non-numeric Juan C's in Serum or results) [facility], ) Plasma Iron 31 % Normal (applies to MEDGEN (St saturation non-numeric Juan C's [Mass results) Medical, ) Fraction] in Serum or Plasma Iron 297 ug/dL Normal (applies to MEDGEN (St Bind.Cap.(TIBC non-numeric Juan C's ) results) Medical, ) UIBC 222 ug/dL Normal (applies to MEDGEN (St non-numeric Juan C's results) [facility], ) Iron 75 ug/dL Normal (applies to MEDGEN (St [Mass/volume] non-numeric Juan C's in Serum or results) [facility], ) Plasma Iron 25 % Normal (applies to MEDGEN (St saturation non-numeric Juan C's [Mass results) [facility], ) Fraction] in Serum or Plasma ID Date Data Source [id number] 03/22/2020 12:00:00 AM EDT [facility] ([facility], ) Name Value Range Interpretation Code Description Data Supporting Source(s) Document(s ) Protein,To 101.5 Normal (applies to MEDGEN (St ruth,Urine mg/dL non-numeric Juan C's results) [facility], ) Albumin, U 36.2 % Normal (applies to MEDGEN (St non-numeric Juan C's results) [facility], ) Alpha-1-Gl 5.7 % Normal (applies to MEDGEN (St obulin, U non-numeric Juan C's results) [facility], ) Alpha-2-Gl 12.8 % Normal (applies to MEDGEN (St obulin, U non-numeric Juan C's results) [facility], ) Beta 29.7 % Normal (applies to MEDGEN (St Globulin, non-numeric Juan C's U results) [facility], ) Gamma 15.6 % Normal (applies to MEDGEN (St Globulin, non-numeric Juan C's U results) [facility], ) M-Kevyn, % Comment: Normal (applies to MEDGEN (St non-numeric Juan C's results) [facility], ) PDF . Normal (applies to MEDGEN (St non-numeric Juan C's results) Medical, ) Protein,To 146.6 Normal (applies to MEDGEN (St ruth,Urine mg/dL non-numeric Juan C's results) Medical, ) Albumin, U 47.8 % Normal (applies to MEDGEN (St non-numeric Juan C's results) [facility], ) Alpha-1-Gl 3.5 % Normal (applies to MEDGEN (St obulin, U non-numeric Juan C's results) [facility], ) Alpha-2-Gl 9.6 % Normal (applies to MEDGEN (St obulin, U non-numeric Juan C's results) [facility], ) Beta 24.4 % Normal (applies to MEDGEN (St Globulin, non-numeric Juan C's U results) [facility], ) Gamma 14.8 % Normal (applies to MEDGEN (St Globulin, non-numeric Juan C's U results) [facility], ) M-Kevyn, % 9.8 % Above high normal MEDGEN ([facility], ) PDF . Normal (applies to MEDGEN (St non-numeric Juan C's results) [facility], ) ID Date Data Source [id number] 03/22/2020 12:00:00 AM EDT [facility] ([facility], ) Name Value Range Interpretation Description Data Sup porting Code Source(s) Document(s ) Microalbumin 4.0 g/dL Normal (applies MEDGEN (St [Mass/time] in to non-numeric Juan C's Urine collected results) [facility], for unspecified PC) duration Lrmlj-7-Vvmwcaze 0.2 g/dL Normal (applies MEDGEN (St to non-numeric Juan C's results) [facility], ) Kadiq-2-Rtwmruvk 0.8 g/dL Normal (applies MEDGEN (St to non-numeric Juan C's results) [facility], ) Beta globulin 0.7 g/dL Normal (applies MEDGEN (St [Mass/volume] in to non-numeric Juan C's Urine by results) Medical, Electrophoresis PC) Gamma globulin 3.5 g/dL Above high normal MEDGEN (St [Mass/volume] by Juan C's Electrophoresis in Medical, Urine collected ) for unspecified duration M-Kevyn 3.2 g/dL Above high normal [facility]GEN ([facility], ) Globulin, Total 5.1 g/dL Above high normal MEDGEN ([facility], ) A/G Ratio 0.8 Normal (applies [...] collected results) Medical, for unspecified PC) duration Dyswh-7-Cvcfbgvb 0.2 g/dL Normal (applies MEDGEN (St to non-numeric Juan C's results) Medical, ) Ekldr-2-Gopgdlva 0.8 g/dL Normal (applies MEDGEN (St to non-numeric Juan C's results) Medical, ) Beta globulin 0.8 g/dL Normal (applies MEDGEN (St [Mass/volume] in to non-numeric Juan C's Urine by results) Medical, Electrophoresis ) Gamma globulin 3.2 g/dL Above high normal MEDGEN (St [Mass/volume] by Juan C's Electrophoresis in [facility], Urine collected ) for unspecified duration M-Kevyn 2.9 g/dL Above high normal MEDGEN ([facility], ) Globulin, Total 5.0 g/dL Above high normal MEDGEN ([facility], ) A/G Ratio 0.8 Normal (applies MEDGEN (St to non-numeric Juan C's results) Medical, ) PDF . Normal (applies MEDGEN (St to non-numeric Juan C's results) Medical, ) ID Date Data Source [id number] 03/22/2020 12:00:00 AM EDT MEDGEN ([facility], ) Name Value Range Interpretation Description [...] results) Medical, ) ID Date Data Source [id number] 03/22/2020 12:00:00 AM EDT MEDGEN ([facility] [...] to non-numeric Juan C's results) Medical, PC) Crystal Type Calcium Normal (applies MEDGEN (St [...] by Light microscopy ID Date Data Source [id number] 03/22/2020 12:00:00 AM EDT MEDGEN ([facility] [...] or Plasma Medical, ) eGFR If NonAfricn 9 Below low normal MEDGE N (St Am mL/min/1 Juan C's .73 Medical, PC) BUN/Creatinine 10 Normal (applies MEDGEN (S t Ratio to non-numeric Juan C's results) Medical, PC) eGFR If Africn Am 10 Below low normal MEDGE N (St mL/min/1 Juan C's .73 Medical, PC) Sodium 134 Normal (applies MEDGEN [...] in normal Juan C's Serum or Plasma [facility], ) Globulin, Total 5.2 g/dL Above high MEDGEN (St normal Juan C's [facility], ) Microalbumin 3.9 g/dL Normal (applies MEDGEN (St [Mass/time] in to non-numeric Juan C's Urine collected for results) Medical, unspecified ) duration A/G Ratio 0.8 Below low normal [facility] ([facility], ) Bilirubin.total 0.4 Normal (applies MEDGEN ( St [Mass/volume] in mg/dL to non-numeric Juan C's Serum or Plasma results) [facility], ) Aspartate 43 IU/L Above high [...] in normal Juan C's Serum or Plasma [facility], ) Creatinine 2.81 Above high MEDGEN (St [Interpretation] in mg/dL normal Juan C's Urine [facility], ) eGFR If NonAfricn 21 Below low normal MEDGE N (St Am mL/min/1 Juan C's .73 [facility], ) eGFR If Africn Am 24 Below low normal MEDGE N (St mL/min/1 Juan C's .73 [facility], ) BUN/Creatinine 13 Normal (applies MEDGEN (S t Ratio to non-numeric Ujan C's results) [facility], ) Sodium 135 Normal (applies MEDGEN (St [Moles/volume] in mmol/L to non-numeric Juan C's Serum or Plasma results) [facility], ) Potassium 4.1 Normal (applies MEDGEN [...] for results) Medical, unspecified ) duration Microalbumin 4.2 g/dL Normal (applies MEDGEN (St [Mass/time] in to non-numeric Juan C's Urine collected for results) [facility], unspecified ) duration Protein 9.0 g/dL Above high MEDGEN (St [Mass/volume] in normal Juan C's Serum or Plasma [facility], ) Globulin, Total 4.8 g/dL Above high MEDGEN (St normal [facility], ) A/G Ratio 0.9 Below low normal MEDGEN ([facility], ) Bilirubin.total 0.3 Normal (applies MEDGEN ( St [Mass/volume] in mg/dL to non-numeric Juan C's Serum or Plasma results) [facility], ) Alkaline 53 IU/L Normal (applies [...] Serum or Plasma ID Date Data Source [id number] 03/22/2020 12:00:00 AM EDT MEDGEN ([facility], ) Name Value Range Interpretation Description Data Sup porting Code Source(s) Document(s ) Leukocytes 11.7 Above high normal MEDGEN (St [#/volume] in x10E3/uL Juan C's Blood by [facility], ) Automated count Erythrocytes 2.47 Below lower panic MEDGEN (S t [#/volume] in x10E6/uL limits Juan C's Blood by [facility], ) Automated count Hematocrit 23.3 % Below low normal MEDGEN (St [Volume Juan C's Fraction] of [facility]) Blood by Automated count Hemoglobin 8.2 g/dL Below low normal MEDGEN (St [Mass/volume] in Juan C's Blood [facility]) MCV 94 fL Normal (applies MEDGEN (St to non-numeric Juan C's results) [facility]) MCH 33.2 pg Above high normal MEDGEN ([facility], ) MCHC 35.2 Normal (applies MEDGEN (St g/dL to non-numeric Juan C's results) [facility]) RDW 19.0 % Above high normal MEDGEN ([facility], ) Platelets 198 Normal (applies MEDGEN (St [#/area] in x10E3/uL to non-numeric Juan C's Blood by results) [facility]) Microscopy high power field Neutrophils [#] 54 % Normal (applies MEDGEN ( St in Body fluid by to non-numeric Juan C's Manual count results) [facility]) Lymphs 13 % Normal (applies MEDGEN (St to non-numeric Juan C's results) [facility]) Monocytes 16 % Normal (applies MEDGEN (St [#/volume] in to non-numeric Juan C's Cord blood results) [facility]) Basos 1 % Normal (applies MEDGEN (St to non-numeric Juan C's results) [facility]) Eos 11 % Normal (applies MEDGEN (St to non-numeric Juan C's results) [facility]) Neutrophils 6.4 Normal (applies MEDGEN (St (Absolute) x10E3/uL to non-numeric Juan C's results) [facility]) Monocytes(Absolu 1.9 Above high normal MEDGE N (St te) x10E3/uL Juan C's [facility]) Lymphs 1.5 Normal (applies MEDGEN (St (Absolute) x10E3/uL to non-numeric Juan C's results) [facility]) Eos (Absolute) 1.3 Above high normal MEDGEN (St x10E3/uL Juan C's [facility]) Baso (Absolute) 0.1 Normal (applies MEDGEN ( St x10E3/uL to non-numeric Juan C's results) [facility]) Immature 5 % Normal (applies MEDGEN (St Granulocytes to non-numeric Juan C's results) [facility]) Immature Grans 0.6 Above high normal MEDGEN (St (Abs) x10E3/uL [facility], ) NRBC 4 % Above high normal MEDGEN ([facility], ) Leukocytes 11.8 Above high normal MEDGEN (St [#/volume] in x10E3/uL Juan C's Blood by [facility], ) Automated count Erythrocytes 3.28 Below low normal MEDGEN (St [#/volume] in x10E6/uL Juan C's Blood by [facility], ) Automated count Hemoglobin 10.8 Below low normal MEDGEN (St [Mass/volume] in g/dL [facility], ) Hematocrit 31.7 % Below low normal MEDGEN (St [Volume Juan [facility] Fraction] of [facility], ) Blood by Automated count MCH 32.9 pg Normal (applies MEDGEN (St to non-numeric [facility] results) [facility], ) MCV 97 fL Normal (applies MEDGEN (St to non-numeric [facility] results) [facility], ) MCHC 34.1 Normal (applies MEDGEN (St g/dL to non-numeric [facility] results) [facility], ) RDW 17.5 % Above high normal [facility] ([facility], ) Platelets 237 Normal (applies MEDGEN (St [#/area] in x10E3/uL to non-numeric [facility] Blood by results) [facility], ) Microscopy high power field Neutrophils [#] 53 % Normal (applies MEDGEN ( St in Body fluid by to non-numeric [facility]'s Manual count results) [facility], ) Lymphs 20 % Normal (applies MEDGEN (St to non-numeric [facility] results) [facility], ) Eos 12 % Normal (applies MEDGEN (St to non-numeric [facility] results) [facility], ) Monocytes 13 % Normal (applies MEDGEN (St [#/volume] in to non-numeric Juan [facility]'s Cord blood results) [facility], ) Basos 1 % Normal (applies MEDGEN (St to non-numeric [facility] results) [facility], ) Neutrophils 6.2 Normal (applies MEDGEN (St (Absolute) x10E3/uL to non-numeric [facility] results) [facility], ) Lymphs 2.4 Normal (applies MEDGEN (St (Absolute) x10E3/uL to non-numeric [facility] results) [facility], ) Monocytes(Absolu 1.5 Above high normal MEDGE N (St te) x10E3/uL [facility]) Eos (Absolute) 1.5 Above high normal MEDGEN (St x10E3/uL [facility], ) Immature 1 % Normal (applies MEDGEN (St Granulocytes to non-numeric [facility]'s results) [facility]) Baso (Absolute) 0.1 Normal (applies MEDGEN ( St x10E3/uL to non-numeric [facility]'s results) [facility]) Immature Grans 0.2 Above high normal MEDGEN (St (Abs) x10E3/uL [facility], ) Hematology Note: Normal (applies MEDGEN (St Comments: to non-numeric [facility] results) [facility], ) Leukocytes 9.5 Normal (applies MEDGEN (St [#/volume] in x10E3/uL to non-numeric [facility] Blood by results) [facility]) Automated count Erythrocytes 3.28 Below low normal MEDGEN (St [#/volume] in x10E6/uL [facility] Blood by [facility]) Automated count Hemoglobin 10.9 Below low normal [facility] (St [Mass/volume] in g/dL [facility]) Hematocrit 32.1 % Below low normal MED[facility] (St [Volume Juan C's Fraction] of [facility]) Blood by Automated count MCV 98 fL Above high normal MED[facility] ([facility], ) MCH 33.2 pg Above high normal [facility] ([facility]) RDW 17.3 % Above high normal [facility] ([facility], ) MCHC 34.0 Normal (applies [facility]GEN (St g/dL to non-numeric [facility] results) [facility]) Platelets 240 Normal (applies MEDGEN (St [#/area] in x10E3/uL to non-numeric [facility] Blood by results) [facility]) Microscopy high power field Lymphs 19 % Normal (applies MEDGEN (St to non-numeric [facility] results) [facility]) Neutrophils [#] 53 % Normal (applies MEDGEN ( St in Body fluid by to non-numeric [facility] C's Manual count results) [facility], ) Monocytes 15 % Normal (applies [facility] (St [#/volume] in to non-numeric [facility] Cord blood results) Medical, ) Eos 11 % Normal (applies [facility]GEN (St to non-numeric [facility] results) [facility], ) Basos 0 % Normal (applies [facility]GEN (St to non-numeric [facility]'s results) [facility], ) Neutrophils 5.1 Normal (applies MEDGEN (St (Absolute) x10E3/uL to non-numeric [facility]'s results) [facility], ) Lymphs 1.8 Normal (applies [facility] (St (Absolute) x10E3/uL to non-numeric [facility] results) [facility], ) Eos (Absolute) 1.0 Above high normal [facility] (St x10E3/uL [facility], ) Monocytes(Absolu 1.5 Above high normal MEDGE N (St te) x10E3/uL [facility], ) Baso (Absolute) 0.0 Normal (applies MEDGEN ( St x10E3/uL to non-numeric [facility] results) [facility], ) Immature 2 % Normal (applies [facility]GEN (St Granulocytes to non-numeric [facility] results) [facility], ) Hematology Note: Normal (applies MEDGEN (St Comments: to non-numeric [facility] results) [facility], ) Immature Grans 0.2 Above high normal MEDGEN (St (Abs) x10E3/uL [facility], ) ID Date Data Source [id number] 03/22/2020 12:00:00 AM EDT [facility] ([facility], ) Name Value Range Interpretation Code Description Data Lisa rce(s) Supporting Document(s ) ID Date Data Source [id number] 03/22/2020 12:00:00 AM EDT [facility] ([facility], ) Name Value Range Interpretation Code Description Data Supporting Source(s) Document(s ) PTH, Intact 10 pg/mL Below low normal [facility] ([facility], ) ID Date Data Source [id number] 03/22/2020 12:00:00 AM EDT [facility] ([facility], ) Name Value Range Interpretation Code Description Data Supporting Source(s) Document(s ) Ferritin, 349 ng/mL Normal (applies to [facility] (St Serum non-numeric [facility]'s results) [facility], ) ID Date Data Source [id number] 03/22/2020 12:00:00 AM EDT [facility] ([facility], ) Name Value Range Interpretation Description Data Sup porting Code Source(s) Document(s ) Deprecated 5.4 mg/dL Above high normal [facility] (St Phosphorus [facility]'s [Mass/time] in [facility], ) 24 hour Urine ID Date Data Source [id number] 03/22/2020 12:00:00 AM EDT [facility] ([facility], ) Name Value Range Interpretation Code Description Data Lisa rce(s) Supporting Document(s ) RAGINI Normal (applies to [facility] (St Interpreta non-numeric results) [facility] edical, tion:U ) ID Date Data Source [id number] 03/22/2020 12:00:00 AM EDT [facility] ([facility], ) Name Value Range Interpretation Description Data Sup porting Code Source(s) Document(s ) Vitamin D, 30.6 Normal (applies to [facility] (St 25-Hydroxy ng/mL non-numeric [facility] results) [facility], ) ID Date Data Source [id number] 03/22/2020 12:00:00 AM EDT [facility] ([facility], ) Name Value Range Interpretation Description Data Sup porting Code Source(s) Document(s ) Free [place] 141.85 Above high normal MEDGEN (St Lt mg/L [facility], ) Free [place] 110.44 Above high normal MED[facility] (St Lt mg/L [facility], ) [place] 1.28 Normal (applies to MEDGEN (S t a Ratio,U non-numeric [facility] results) [facility], ) ID Date Data Source [id number] 03/22/2020 12:00:00 AM EDT [facility] ([facility], ) Name Value Range Interpretation Description Data Sup porting Code Source(s) Document(s ) Free [place] 41.1 mg/L Above high normal MEDGEN (St Lt Chains,S [facility], ) Free Lambda 176.0 mg/L Above high normal MEDGEN (S t Lt Chains,S [facility], ) [place] 0.23 Below low normal [facility]GEN (St a Ratio,S [facility], ) ID Date Data Source [id number] 03/22/2020 12:00:00 AM EDT [facility] ([facility], ) Name Value Range Interpretation Code Description Data Supporting Source(s) Document(s ) Creatinine 94.7 mg/dL Normal (applies to MEDGEN (S t , Urine non-numeric Juan C's results) [facility], ) Protein/Cr 1072 mg/g Above high normal MEDGEN (St eat Ratio creat [facility], ) ID Date Data Source [id number] 03/22/2020 12:00:00 AM EDT [facility] ([facility], ) Name Value Range Interpretation Description Data Sup porting Code Source(s) Document(s ) Immunofixation Normal (applies MEDGEN (S t Result, Serum to non-numeric [facility]'s results) [facility], ) Immunoglobulin G, 3867 Above high normal MEDG EN (St Qn, Serum mg/dL [facility]) Immunoglobulin A, 17 mg/dL Below low normal MEDGE N (St Qn, Serum [facility], ) Immunoglobulin M, 8 mg/dL Below low normal MEDGE N (St Qn, Serum [facility], ) ID Date Data Source [id number] 03/22/2020 12:00:00 AM EDT [facility] (St [facility], ) Name Value Range Interpretation Description Data Sup porting Code Source(s) Document(s ) Iron 248 ug/dL Below low normal MEDGEN (St Bind.Cap.(TIBC Juan C's ) [facility], ) UIBC 172 ug/dL Normal (applies to [facility]GEN (St non-numeric [facility]'s results) [facility], ) Iron 76 ug/dL Normal (applies to [facility]GEN (St [Mass/volume] non-numeric [facility] in Serum or results) [facility], ) Plasma Iron 31 % Normal (applies to [facility] (St saturation non-numeric Juan C's [Mass results) [facility], ) Fraction] in Serum or Plasma ID Date Data Source [id number] 03/22/2020 12:00:00 AM EDT [facility] (St [facility], ) Name Value Range Interpretation Description Data Sup porting Code Source(s) Document(s ) Protein,Tot 101.5 Normal (applies to MEDGEN (S t al,Urine mg/dL non-numeric [facility] results) [facility], ) Albumin, U 36.2 % Normal (applies to [facility] (St non-numeric [facility] results) [facility], ) Alpha-1-Nadine 5.7 % Normal (applies to [facility]GEN (S t bulin, U non-numeric [facility] results) [facility], ) Alpha-2-Nadine 12.8 % Normal (applies to [...] (St non-numeric [facility] results) [facility], ) Please Normal (applies to [facility]GEN (St note: non-numeric [facility] results) [facility], PC) PDF . Normal (applies to [facility] (St non-numeric [facility] results) [facility], ) ID Date Data Source [id number] 03/22/2020 12:00:00 AM EDT [facility] ([facility], ) Name Value Range Interpretation Description Data Sup porting Code Source(s) Document(s ) Microalbumin 4.0 g/dL Normal (applies [facility] (St [Mass/time] in to non-numeric [facility] Urine collected results) [facility], for unspecified PC) duration Opbpz-3-Jogvuiwj 0.2 g/dL Normal (applies [facility] (St to non-numeric [facility] results) [facility], ) Ynpqm-4-Yhfyxscw 0.8 g/dL Normal (applies [facility] (St to non-numeric [facility] results) [facility], ) Beta globulin 0.7 g/dL Normal (applies [facility] (St [Mass/volume] in to non-numeric [facility] Urine by results) [facility], Electrophoresis PC) Gamma globulin 3.5 g/dL Above high normal [facility] (St [Mass/volume] by [facility] Electrophoresis in Medical, Urine collected ) for unspecified duration M-Kevyn 3.2 g/dL Above high normal [facility] ([facility], ) Globulin, Total 5.1 g/dL Above high normal [facility] ([facility], ) A/G Ratio 0.8 Normal (applies [facility]GEN (St to non-numeric [facility] results) [facility], PC) Please note: Normal (applies [facility] (St to non-numeric [facility] results) [facility], [facility]) PDF . Normal (applies [facility] (St to non-numeric [facility] results) [facility], PC) ID Date Data Source [id number] 03/22/2020 12:00:00 AM EDT MED[facility] (St [facility] [...] results) Medical, PC) ID Date Data Source [id number] 03/22/2020 12:00:00 AM EDT [facility] ([facility], ) Name Value Range Interpretation Description [...] by Light microscopy ID Date Data Source [id number] 03/22/2020 12:00:00 AM EDT [facility] Name Value Range Interpretation Description [...] 5.2 g/dL Above high MEDGEN (St normal [facility], ) A/G Ratio 0.8 Below low normal MED[facility] ([facility], ) Bilirubin.total 0.4 Normal (applies MEDGEN [...] Serum or Plasma ID Date Data Source [id number] 03/22/2020 12:00:00 AM EDT [facility], ) Name Value Range Interpretation Description Data Sup porting Code Source(s) Document(s ) Leukocytes 11.7 Above high normal MEDGEN (St [#/volume] in x10E3/uL [facility] Blood by [facility], ) Automated count Erythrocytes 2.47 Below lower panic MEDGEN (S t [#/volume] in x10E6/uL limits [facility] Blood by [facility], ) Automated count Hemoglobin 8.2 g/dL Below low normal [facility] (St [Mass/volume] in [facility] Blood [facility], ) Hematocrit 23.3 % Below low normal [facility] (St [Volume Juan C's Fraction] of [facility]) Blood by Automated count MCV 94 fL Normal (applies [facility]GEN (St to non-numeric [facility] C's results) [facility]) MCH 33.2 pg Above high normal [facility] ([facility], ) MCHC 35.2 Normal (applies [facility]GEN (St g/dL to non-numeric [facility]'s results) [facility]) RDW 19.0 % Above high normal [facility] ([facility], ) Platelets 198 Normal (applies MEDGEN (St [#/area] in x10E3/uL to non-numeric [facility] Blood by results) [facility]) Microscopy high power field Neutrophils [#] 54 % Normal (applies MEDGEN ( St in Body fluid by to non-numeric Juan C's Manual count results) [facility]) Lymphs 13 % Normal (applies [facility]GEN (St to non-numeric [facility] C's results) [facility]) Monocytes 16 % Normal (applies [facility]GEN (St [#/volume] in to non-numeric [facility] C's Cord blood results) [facility]) Eos 11 % Normal (applies [facility]GEN (St to non-numeric [facility]'s results) [facility]) Basos 1 % Normal (applies [facility]GEN (St to non-numeric [facility]'s results) [facility]) Neutrophils 6.4 Normal (applies MEDGEN (St (Absolute) x10E3/uL to non-numeric [facility]'s results) [facility]) Monocytes(Absolu 1.9 Above high normal MEDGE N (St te) x10E3/uL [facility]) Lymphs 1.5 Normal (applies MEDGEN (St (Absolute) x10E3/uL to non-numeric [facility] C's results) [facility]) Eos (Absolute) 1.3 Above high normal MEDGEN (St x10E3/uL [facility]) Baso (Absolute) 0.1 Normal (applies MEDGEN ( St x10E3/uL to non-numeric [facility]'s results) [facility]) Immature 5 % Normal (applies [facility]GEN (St Granulocytes to non-numeric [facility] C's results) [facility]) Immature Grans 0.6 Above high normal [facility] (St (Abs) x10E3/uL [facility], ) NRBC 4 % Above high normal [facility] ([facility], ) ID Date Data Source [id number] 03/22/2020 12:00:00 AM EDT [facility] ([facility], ) Name Value Range Interpretation Code Description Data Lisa rce(s) Supporting Document(s ) ID Date Data Source [id number] 03/22/2020 12:00:00 AM EDT [facility] ([facility], ) Name Value Range Interpretation Code Description Data Supporting Source(s) Document(s ) PTH, Intact 10 pg/mL Below low normal MED[facility] ([facility], ) ID Date Data Source [id number] 03/22/2020 12:00:00 AM EDT [facility] ([facility], ) Name Value Range Interpretation Code Description Data Supporting Source(s) Document(s ) Ferritin, 349 ng/mL Normal (applies to MEDGEN (St Serum non-numeric Juan C's results) [facility], ) ID Date Data Source [id number] 03/22/2020 12:00:00 AM EDT [facility] ([facility], ) Name Value Range Interpretation Description Data Sup porting Code Source(s) Document(s ) Deprecated 5.4 mg/dL Above high normal MED[facility] (St [facility]'s [Mass/time] in Medical, ) 24 hour Urine ID Date Data Source [id number] 03/22/2020 12:00:00 AM EDT [facility] ([facility], ) Name Value Range Interpretation Code Description Data Lisa rce(s) Supporting Document(s ) ID Date Data Source [id number] 03/22/2020 12:00:00 AM EDT [facility] ([facility], ) Name Value Range Interpretation Description Data Sup porting Code Source(s) Document(s ) Vitamin D, 30.6 Normal (applies to MEDGEN (St 25-Hydroxy ng/mL non-numeric [facility]'s results) [facility], ) ID Date Data Source [id number] 03/22/2020 12:00:00 AM EDT [facility] ([facility], ) Name Value Range Interpretation Description Data Sup porting Code Source(s) Document(s ) Free [place] 141.85 Above high normal MEDGEN (St Lt mg/L [facility], [facility]) Free [place] 110.44 Above high normal MEDGEN (St Lt mg/L [facility], [facility]) [place] 1.28 Normal (applies to MEDGEN (S t a Ratio,U non-numeric [facility] C's results) [facility], ) ID Date Data Source [id number] 03/22/2020 12:00:00 AM EDT [facility] ([facility], ) Name Value Range Interpretation Description Data Sup porting Code Source(s) Document(s ) Free [place] 176.0 mg/L Above high normal MEDGEN (S t Lt Chains,S [facility], PC) Free [place] 41.1 mg/L Above high normal MEDGEN (St Lt Chains,S [facility], [facility]) [place] 0.23 Below low normal MEDGEN (St a Ratio,S [facility], ) ID Date Data Source [id number] 03/22/2020 12:00:00 AM EDT [facility], ) Name Value Range Interpretation Code Description Data Supporting Source(s) Document(s ) Creatinine 94.7 mg/dL Normal (applies to MEDGEN (S t , Urine non-numeric Juan C's results) [facility], ) Protein/Cr 1072 mg/g Above high normal MEDGEN (St eat Ratio creat [facility], ) ID Date Data Source [id number] 03/22/2020 12:00:00 AM EDT [facility] ([facility], ) Name Value Range Interpretation Code Description Data Lisa rce(s) Supporting Document(s ) ID Date Data Source [id number] 03/22/2020 12:00:00 AM EDT [facility] ) Name Value Range Interpretation Code Description Data Supporting Source(s) Document(s ) PTH, Intact 10 pg/mL Below low normal [facility] ([facility], ) ID Date Data Source [id number] 03/22/2020 12:00:00 AM EDT [facility], ) Name Value Range Interpretation Code Description Data Supporting Source(s) Document(s ) Ferritin, 349 ng/mL Normal (applies to MEDGEN (St Serum non-numeric Juan C's results) [facility], ) ID Date Data Source [id number] 03/22/2020 12:00:00 AM EDT [facility] ([facility]) Name Value Range Interpretation Description Data Sup porting Code Source(s) Document(s ) Deprecated 5.4 mg/dL Above high normal MEDGEN (St Phosphorus [facility]'s [Mass/time] in Medical, ) 24 hour Urine ID Date Data Source [id number] 03/22/2020 12:00:00 AM EDT [facility] ([facility]) Name Value Range Interpretation Code Description Data Lisa rce(s) Supporting Document(s ) ID Date Data Source [id number] 03/22/2020 12:00:00 AM EDT [facility]) Name Value Range Interpretation Description Data Sup porting Code Source(s) Document(s ) Vitamin D, 30.6 Normal (applies to MEDGEN (St 25-Hydroxy ng/mL non-numeric [facility]'s results) [facility], ) ID Date Data Source [id number] 03/22/2020 12:00:00 AM EDT [facility]) Name Value Range Interpretation Description Data Sup porting Code Source(s) Document(s ) Free [place] 141.85 Above high normal MEDGEN (St Lt mg/L [facility], [facility]) Free [place] 110.44 Above high normal MEDGEN (St Lt mg/L [facility], [facility]) [place] 1.28 Normal (applies to MEDGEN (S t a Ratio,U non-numeric [facility] C's results) Medical, ) ID Date Data Source [id number] 03/22/2020 12:00:00 AM EDT [facility]) Name Value Range Interpretation Description Data Sup porting Code Source(s) Document(s ) Free [place] 41.1 mg/L Above high normal MEDGEN (St Lt Chains,S [facility], [facility]) [place] 0.23 Below low normal MEDGEN (St a Ratio,S [facility], [facility]) [place] 176.0 mg/L Above high normal MEDGEN (S t Lt Chains,S [facility], PC) ID Date Data Source [id number] 03/22/2020 12:00:00 AM EDT MEDGEN (St [facility], ) Name Value Range Interpretation Code Description Data Supporting Source(s) Document(s ) Creatinine 94.7 mg/dL Normal (applies to MEDGEN (S t , Urine non-numeric Juan C's results) [facility]) Protein/Cr 1072 mg/g Above high normal MEDGEN (St eat Ratio creat [facility]) ID Date Data Source [id number] 03/22/2020 12:00:00 AM EDT MEDGEN ([facility], ) Name Value Range Interpretation Description Data Sup porting Code Source(s) Document(s ) Immunoglobulin G, 3867 Above high normal MEDG EN (St Qn, Serum mg/dL [facility]) Immunoglobulin A, 17 mg/dL Below low normal MEDGE N (St Qn, Serum [facility]) Immunoglobulin M, 8 mg/dL Below low normal MEDGE N (St Qn, Serum [facility]) ID Date Data Source [id number] 03/22/2020 12:00:00 AM EDT MEDGEN ([facility], ) Name Value Range Interpretation Description Data Sup porting Code Source(s) Document(s ) Iron 248 ug/dL Below low normal MEDGEN (St Bind.Cap.(TIBC Juan C's ) [facility]) Iron 76 ug/dL Normal (applies to MEDGEN (St [Mass/volume] non-numeric Juan C's in Serum or results) [facility], ) Plasma UIBC 172 ug/dL Normal (applies to MEDGEN (St non-numeric Juan C's results) [facility]) Iron 31 % Normal (applies to MEDGEN (St saturation non-numeric Juan C's [Mass results) [facility]) Fraction] in Serum or Plasma ID Date Data Source [id number] 03/22/2020 12:00:00 AM EDT [facility] ([facility], ) Name Value Range Interpretation Code Description Data Supporting Source(s) Document(s ) Protein,To 101.5 Normal (applies to MEDGEN (St ruth,Urine mg/dL non-numeric Juan C's results) [facility]) Albumin, U 36.2 % Normal (applies to MEDGEN (St non-numeric Juan C's results) [facility]) Alpha-1-Gl 5.7 % Normal (applies to MEDGEN (St obulin, U non-numeric Juan C's results) Medical, ) Alpha-2-Gl 12.8 % Normal (applies to MEDGEN (St obulin, U non-numeric [facility]'s results) Medical, ) Gamma 15.6 % Normal (applies to MEDGEN (St Globulin, non-numeric Juan C's U results) Medical, ) Beta 29.7 % Normal (applies to MEDGEN (St Globulin, non-numeric Juan C's U results) Medical, ) M-Kevyn, % Comment: Normal (applies to MEDGEN (St non-numeric [facility]'s results) Medical, ) PDF . Normal (applies to MEDGEN (St non-numeric [facility]'s results) Medical, ) ID Date Data Source [id number] 03/22/2020 12:00:00 AM EDT [facility] ([facility], ) Name Value Range Interpretation Description Data Sup porting Code Source(s) Document(s ) Microalbumin 4.0 g/dL Normal (applies MEDGEN (St [Mass/time] in to non-numeric [facility]'s Urine collected results) Medical, for unspecified PC) duration Lfpgd-8-Fxizthks 0.8 g/dL Normal (applies MEDGEN (St to non-numeric [facility] C's results) Medical, ) Rokim-7-Mofeopzn 0.2 g/dL Normal (applies MEDGEN (St to non-numeric [facility] C's results) Medical, ) Beta globulin 0.7 g/dL Normal (applies MEDGEN (St [Mass/volume] in to non-numeric [facility]'s Urine by results) [facility], Electrophoresis PC) Gamma globulin 3.5 g/dL Above high normal MEDGEN (St [Mass/volume] by Juan C's Electrophoresis in Medical, Urine collected PC) for unspecified duration M-Kevyn 3.2 g/dL Above high normal [facility] ([facility], ) A/G Ratio 0.8 Normal (applies MEDGEN (St to non-numeric Juan C's results) Medical, ) Globulin, Total 5.1 g/dL Above high normal [facility] ([facility], ) PDF . Normal (applies MEDGEN (St to non-numeric Juan C's results) Medical, ) ID Date Data Source [id number] 03/22/2020 12:00:00 AM EDT MEDGEN ([facility] [...] Medical, for unspecified PC) duration Occult Blood Abnormal [...] results) Medical, PC) ID Date Data Source [id number] 03/22/2020 12:00:00 AM EDT MEDGEN ([facility] [...] to non-numeric [facility]'s results) Medical, PC) Crystal Type Calcium Normal (applies MEDGEN (St Oxalate to non-numeric Juan C's results) Medical, PC) Bacteria Few Normal (applies MEDGEN (St [Presence] in to non-numeric Juan C's Prostatic results) Medical, PC) fluid by Light microscopy ID Date Data Source [id number] 03/22/2020 12:00:00 AM EDT MEDGEN (St [facility] [...] Am mL/min/1 Juan C's .73 Medical, PC) BUN/Creatinine 10 Normal (applies MEDGEN (S t Ratio to non-numeric Juan C's results) Medical, PC) eGFR If Africn Am 10 Below low normal MEDGE N (St mL/min/1 Juan C's .73 [facility], [facility]) Sodium 134 Normal (applies MEDGEN (St [Moles/volume] in mmol/L to non-numeric Juanc 's Serum or Plasma results) [facility], [facility]) Chloride 98 Normal (applies MEDGEN (St [Moles/volume] in mmol/L to non-numeric Juan C's Serum or Plasma results) [facility], [facility]) Potassium 4.1 Normal (applies MEDGEN (St [Mass/volume] in mmol/L to non-numeric Juan C's Blood results) [facility], [facility]) Carbon dioxide, 20 Normal (applies MEDGEN ( St total mmol/L to non-numeric Juan C's [Moles/volume] in results) Medical, Serum or Plasma PC) Calcium 12.0 Above high MEDGEN (St [Moles/volume] in mg/dL normal Juan C's Urine collected for Medical, unspecified PC) duration Protein 9.1 g/dL Above high MEDGEN (St [Mass/volume] in normal Juan C's Serum or Plasma [facility], ) Microalbumin 3.9 g/dL Normal (applies MEDGEN (St [Mass/time] in to non-numeric Juan C's Urine collected for results) Medical, unspecified ) duration Globulin, Total 5.2 g/dL Above high MEDGEN (St normal [facility], ) A/G Ratio 0.8 Below low normal MEDGEN ([facility], ) Bilirubin.total 0.4 Normal (applies MEDGEN ( St [Mass/volume] in mg/dL to non-numeric Juan C's Serum or Plasma results) [facility], ) Alkaline 63 IU/L Normal (applies [...] Serum or Plasma ID Date Data Source [id number] 03/22/2020 12:00:00 AM EDT MEDGEN ([facility]) Name Value Range Interpretation Description Data Sup porting Code Source(s) Document(s ) Leukocytes 11.7 Above high normal MEDGEN (St [#/volume] in x10E3/uL Juan C's Blood by [facility], ) Automated count Erythrocytes 2.47 Below lower panic MEDGEN (S t [#/volume] in x10E6/uL limits Juan C's Blood by [facility], ) Automated count Hemoglobin 8.2 g/dL Below low normal MEDGEN (St [Mass/volume] in [facility]'s Blood [facility], ) MCV 94 fL Normal (applies MEDGEN (St to non-numeric Juan C's results) [facility], ) Hematocrit 23.3 % Below low normal MEDGEN (St [Volume Juan C's Fraction] of [facility], ) Blood by Automated count MCH 33.2 pg Above high normal MEDGEN ([facility], ) MCHC 35.2 Normal (applies MEDGEN (St g/dL to non-numeric Juan C's results) [facility]) RDW 19.0 % Above high normal MEDGEN ([facility], ) Neutrophils [#] 54 % Normal (applies MEDGEN ( St in Body fluid by to non-numeric Juan C's Manual count results) [facility]) Platelets 198 Normal (applies MEDGEN (St [#/area] in x10E3/uL to non-numeric Juan C's Blood by results) [facility]) Microscopy high power field Lymphs 13 % Normal (applies MEDGEN (St to non-numeric Juan C's results) [facility]) Eos 11 % Normal (applies MEDGEN (St to non-numeric Juan C's results) [facility]) Monocytes 16 % Normal (applies MEDGEN (St [#/volume] in to non-numeric Juan C's Cord blood results) [facility]) Basos 1 % Normal (applies MEDGEN (St to non-numeric Juan C's results) [facility]) Neutrophils 6.4 Normal (applies MEDGEN (St (Absolute) x10E3/uL to non-numeric Juan C's results) [facility]) Lymphs 1.5 Normal (applies MEDGEN (St (Absolute) x10E3/uL to non-numeric Juan C's results) [facility]) Monocytes(Absolu 1.9 Above high normal MEDGE N (St te) x10E3/uL [facility]) Baso (Absolute) 0.1 Normal (applies MEDGEN ( St x10E3/uL to non-numeric Juan C's results) [facility]) Eos (Absolute) 1.3 Above high normal MEDGEN (St x10E3/uL [facility]) Immature 5 % Normal (applies MEDGEN (St Granulocytes to non-numeric Juan C's results) [facility]) Immature Grans 0.6 Above high normal MEDGEN (St (Abs) x10E3/uL [facility]) NRBC 4 % Above high normal [facility]GEN ([facility], ) ID Date Data Source [id number] 03/22/2020 12:00:00 AM EDT [facility] ([facility], ) Name Value Range Interpretation Code Description Data Lisa rce(s) Supporting Document(s ) ID Date Data Source [id number] 03/22/2020 12:00:00 AM EDT [facility] ([facility] ) Name Value Range Interpretation Code Description Data Supporting Source(s) Document(s ) PTH, Intact 10 pg/mL Below low normal [facility] ([facility], ) ID Date Data Source [id number] 03/22/2020 12:00:00 AM EDT MEDGEN ([facility], ) Name Value Range Interpretation Code Description Data Supporting Source(s) Document(s ) Ferritin, 349 ng/mL Normal (applies to MEDGEN (St Serum non-numeric Juan C's results) [facility], ) ID Date Data Source [id number] 03/22/2020 12:00:00 AM EDT MEDGEN ([facility], ) Name Value Range Interpretation Description Data Sup porting Code Source(s) Document(s ) Deprecated 5.4 mg/dL Above high normal MEDGEN (St Phosphorus Juan C's [Mass/time] in Medical, ) 24 hour Urine ID Date Data Source [id number] 03/22/2020 12:00:00 AM EDT MEDGEN ([facility], ) Name Value Range Interpretation Code Description Data Lisa rce(s) Supporting Document(s ) ID Date Data Source [id number] 03/22/2020 12:00:00 AM EDT [facility] ([facility], ) Name Value Range Interpretation Description Data Sup porting Code Source(s) Document(s ) Vitamin D, 30.6 Normal (applies to MEDGEN (St 25-Hydroxy ng/mL non-numeric Juan C's results) [facility], ) ID Date Data Source [id number] 03/22/2020 12:00:00 AM EDT [facility] ([facility], ) Name Value Range Interpretation Description Data Sup porting Code Source(s) Document(s ) Free [place] 141.85 Above high normal MEDGEN (St Lt mg/L Juan C's [facility], ) Free [place] 110.44 Above high normal MEDGEN (St Lt mg/L Juan [facility], ) [place] 1.28 Normal (applies to MEDGEN (S t a Ratio,U non-numeric Juan C's results) [facility], ) ID Date Data Source [id number] 03/22/2020 12:00:00 AM EDT MEDGEN (St [facility], ) Name Value Range Interpretation Description Data Sup porting Code Source(s) Document(s ) Free [place] 41.1 mg/L Above high normal MEDGEN (St Lt Chains,S [facility], ) [place] 0.23 Below low normal MEDGEN (St a Ratio,S [facility], ) Free [place] 176.0 mg/L Above high normal MEDGEN (S t Lt Chains,S [facility], ) ID Date Data Source [id number] 03/22/2020 12:00:00 AM EDT MEDGEN ([facility], ) Name Value Range Interpretation Code Description Data Supporting Source(s) Document(s ) Creatinine 94.7 mg/dL Normal (applies to MEDGEN (S t , Urine non-numeric Juan C's results) [facility], ) Protein/Cr 1072 mg/g Above high normal MEDGEN (St eat Ratio creat [facility], ) ID Date Data Source [id number] 03/22/2020 12:00:00 AM EDT MEDGEN ([facility], ) Name Value Range Interpretation Description Data Sup porting Code Source(s) Document(s ) Immunoglobulin G, 3867 Above high normal MEDG EN (St Qn, Serum mg/dL [facility]) Immunoglobulin A, 17 mg/dL Below low normal MEDGE N (St Qn, Serum [facility], ) Immunoglobulin M, 8 mg/dL Below low normal MEDGE N (St Qn, Serum [facility]) ID Date Data Source [id number] 03/22/2020 12:00:00 AM EDT MEDGEN ([facility], ) Name Value Range Interpretation Description Data Sup porting Code Source(s) Document(s ) Iron 248 ug/dL Below low normal MEDGEN (St Bind.Cap.(TIBC Juan C's ) [facility], ) UIBC 172 ug/dL Normal (applies to MEDGEN (St non-numeric Juan C's results) [facility], ) Iron 76 ug/dL Normal (applies to MEDGEN (St [Mass/volume] non-numeric Juan C's in Serum or results) [facility], ) Plasma Iron 31 % Normal (applies to MEDGEN (St saturation non-numeric Juan C's [Mass results) [facility], ) Fraction] in Serum or Plasma ID Date Data Source [id number] 03/22/2020 12:00:00 AM EDT [facility] ([facility], ) Name Value Range Interpretation Code Description Data Supporting Source(s) Document(s ) Protein,To 101.5 Normal (applies to MEDGEN (St ruth,Urine mg/dL non-numeric Juan C's results) [facility], ) Albumin, U 36.2 % Normal (applies to MEDGEN (St non-numeric Juan C's results) [facility], ) Alpha-1-Gl 5.7 % Normal (applies to MEDGEN (St obulin, U non-numeric Juan C's results) [facility], ) Alpha-2-Gl 12.8 % Normal (applies to MEDGEN (St obulin, U non-numeric Juan C's results) [facility], ) Gamma 15.6 % Normal (applies to MEDGEN (St Globulin, non-numeric Juan C's U results) [facility], ) Beta 29.7 % Normal (applies to MEDGEN (St Globulin, non-numeric Juan C's U results) [facility]) PDF . Normal (applies to MEDGEN (St non-numeric Juan C's results) [facility], ) M-Kevyn, % Comment: Normal (applies to MEDGEN (St non-numeric Juan C's results) [facility], ) ID Date Data Source [id number] 03/22/2020 12:00:00 AM EDT [facility] ([facility], ) Name Value Range Interpretation Description Data Sup porting Code Source(s) Document(s ) Immunoglobulin G, 3867 Above high normal MEDG EN (St Qn, Serum mg/dL Juan C's [facility], ) Immunoglobulin A, 17 mg/dL Below low normal MEDGE N (St Qn, Serum [facility], ) Immunoglobulin M, 8 mg/dL Below low normal MEDGE N (St Qn, Serum [facility], ) ID Date Data Source [id number] 03/22/2020 12:00:00 AM EDT MEDGEN ([facility], ) Name Value Range Interpretation Description Data Sup porting Code Source(s) Document(s ) Iron 248 ug/dL Below low normal MEDGEN (St Bind.Cap.(TIBC Juan C's ) [facility], ) UIBC 172 ug/dL Normal (applies to MEDGEN (St non-numeric Juan C's results) Medical, ) Iron 76 ug/dL Normal (applies to MEDGEN (St [Mass/volume] non-numeric Juan C's in Serum or results) [facility], ) Plasma Iron 31 % Normal (applies to MEDGEN (St saturation non-numeric Juan C's [Mass results) Medical, ) Fraction] in Serum or Plasma ID Date Data Source [id number] 03/22/2020 12:00:00 AM EDT [facility] ([facility], ) Name Value Range Interpretation Code Description Data Supporting Source(s) Document(s ) Protein,To 101.5 Normal (applies to MEDGEN (St ruth,Urine mg/dL non-numeric Juan C's results) [facility], ) Albumin, U 36.2 % Normal (applies to MEDGEN (St non-numeric Juan C's results) [facility], ) Alpha-1-Gl 5.7 % Normal (applies to MEDGEN (St obulin, U non-numeric Juan C's results) [facility], ) Alpha-2-Gl 12.8 % Normal (applies to MEDGEN (St obulin, U non-numeric Juan C's results) [facility], ) Beta 29.7 % Normal (applies to MEDGEN (St Globulin, non-numeric Juan C's U results) [facility], ) Gamma 15.6 % Normal (applies to MEDGEN (St Globulin, non-numeric Juan C's U results) Medical, ) M-Kevyn, % Comment: Normal (applies to MEDGEN (St non-numeric Juan C's results) Medical, ) PDF . Normal (applies to MEDGEN (St non-numeric Juan C's results) [facility], ) ID Date Data Source [id number] 03/22/2020 12:00:00 AM EDT [facility] ([facility], ) Name Value Range Interpretation Description Data Sup porting Code Source(s) Document(s ) Microalbumin 4.0 g/dL Normal (applies MEDGEN (St [Mass/time] in to non-numeric Juan C's Urine collected results) Medical, for unspecified PC) duration Vtynp-1-Mfkpeigq 0.8 g/dL Normal (applies MEDGEN (St to non-numeric Juan C's results) [facility], ) Yibxb-3-Owwkopel 0.2 g/dL Normal (applies MEDGEN (St to non-numeric Juan C's results) Medical, ) Gamma globulin 3.5 g/dL Above high normal MEDGEN (St [Mass/volume] by Juan C's Electrophoresis in Medical, Urine collected PC) for unspecified duration Beta globulin 0.7 g/dL Normal (applies MEDGEN (St [Mass/volume] in to non-numeric Juan C's Urine by results) [facility], Electrophoresis ) M-Kevyn 3.2 g/dL Above high normal MEDGEN ([facility], ) Globulin, Total 5.1 g/dL Above high normal MEDGEN ([facility], ) A/G Ratio 0.8 Normal (applies MEDGEN (St to non-numeric Juan C's results) [facility], ) PDF . Normal (applies MEDGEN (St to non-numeric Juan C's results) [facility], ) ID Date Data Source [id number] 03/22/2020 12:00:00 AM EDT MEDGEN ( [facility], ) Name Value Range Interpretation Description Data Sup porting Code Source(s) Document(s ) Specific gravity 1.015 Normal (applies MEDGEN (St of Pericardial to non-numeric Juan C's fluid by results) [facility], Refractometry ) pH of Lower 5.0 Normal (applies MEDGEN (St respiratory to non-numeric Juan C's specimen results) [facility], ) Urine-Color Yellow Normal (applies MEDGEN (St to non-numeric Juan C's results) [facility], ) Appearance of Clear Normal (applies MEDGEN (St Abdomen to non-numeric Juan C's results) Medical, ) WBC Esterase Negative Normal (applies MEDGEN (St to non-numeric Juan C's results) Medical, ) Protein Abnormal MEDGEN (St [Mass/volume] in (applies to Juan C's Lower non-numeric Medical, respiratory results) ) specimen Glucose Negative Normal (applies MEDGEN (St [Mass/volume] in to non-numeric Juan C's Urine collected results) [facility], for unspecified PC) duration Ketones Negative [...] results) Medical, PC) ID Date Data Source [id number] 03/22/2020 12:00:00 AM EDT MEDGEN ([facility] [...] non-numeric Juan C's renal) results) Medical, PC) Crystal Type Calcium Normal (applies MEDGEN (St Oxalate to non-numeric Juan C's results) Medical, PC) Crystals Present Abnormal (applies MEDGEN (St [#/area] in to non-numeric Juan C's Body fluid by results) Medical, PC) Light microscopy Mucus Threads Present Normal (applies MEDGEN (St to non-numeric Juan C's results) Medical, PC) Bacteria Few Normal (applies MEDGEN (St [Presence] in to non-numeric Ujan C's Prostatic results) Medical, PC) fluid by Light microscopy ID Date Data Source [id number] 03/22/2020 12:00:00 AM EDT MEDGEN ([facility] [...] .73 Medical, ) eGFR If Africn Am 10 [...] Ratio 0.8 Below low normal [facility] ([facility], ) Bilirubin.total 0.4 Normal (applies MEDGEN ( [...] Serum or Plasma ID Date Data Source [id number] 03/22/2020 12:00:00 AM EDT MEDGEN ([facility], ) Name Value Range Interpretation Description Data Sup porting Code Source(s) Document(s ) Leukocytes 11.7 Above high normal MEDGEN (St [#/volume] in x10E3/uL Juan C's Blood by [facility], ) Automated count Erythrocytes 2.47 Below lower panic MEDGEN (S t [#/volume] in x10E6/uL limits Juan C's Blood by [facility], ) Automated count Hemoglobin 8.2 g/dL Below low normal MEDGEN (St [Mass/volume] in Juan C's Blood [facility], ) Hematocrit 23.3 % Below low normal MEDGEN (St [Volume Juan C's Fraction] of [facility], ) Blood by Automated count MCV 94 fL Normal (applies MEDGEN (St to non-numeric Juan C's results) [facility]) MCH 33.2 pg Above high normal MEDGEN ([facility], ) MCHC 35.2 Normal (applies MEDGEN (St g/dL to non-numeric Juan C's results) [facility]) RDW 19.0 % Above high normal [facility]GEN ([facility], ) Platelets 198 Normal (applies MEDGEN (St [#/area] in x10E3/uL to non-numeric Juan C's Blood by results) [facility], ) Microscopy high power field Neutrophils [#] 54 % Normal (applies MEDGEN ( St in Body fluid by to non-numeric Juan C's Manual count results) [facility], ) Lymphs 13 % Normal (applies MEDGEN (St to non-numeric Juan C's results) [facility], ) Monocytes 16 % Normal (applies MEDGEN (St [#/volume] in to non-numeric Juan C's Cord blood results) [facility], ) Eos 11 % Normal (applies MEDGEN (St to non-numeric Juan C's results) [facility]) Basos 1 % Normal (applies MEDGEN (St to non-numeric Juan C's results) [facility]) Neutrophils 6.4 Normal (applies MEDGEN (St (Absolute) x10E3/uL to non-numeric Juan C's results) [facility]) Lymphs 1.5 Normal (applies MEDGEN (St (Absolute) x10E3/uL to non-numeric Juan C's results) [facility], ) Monocytes(Absolu 1.9 Above high normal MEDGE N (St te) x10E3/uL [facility], ) Eos (Absolute) 1.3 Above high normal MEDGEN (St x10E3/uL [facility], ) Immature 5 % Normal (applies MEDGEN (St Granulocytes to non-numeric Juan C's results) [facility], ) Baso (Absolute) 0.1 Normal (applies MEDGEN ( St x10E3/uL to non-numeric Juan C's results) [facility], ) Immature Grans 0.6 Above high normal MEDGEN (St (Abs) x10E3/uL [facility], ) NRBC 4 % Above high normal MEDGEN ([facility], ) ID Date Data Source [id number] 11/17/2019 12:00:00 AM EST MEDGEN ([facility], ) Name Value Range Interpretation Description Data Sup porting Code Source(s) Document(s ) Glucose 146 mg/dL Above high normal MEDGEN (St [Mass/volume] Juan C's in Urine [facility], ) collected for unspecified duration Urea nitrogen 41 mg/dL Above high normal MEDGEN ( St [Mass/volume] Juan C's in Serum or [facility], ) Plasma Creatinine 3.05 Above high normal MEDGEN (St [Interpretation mg/dL Juan C's ] in Urine [facility], ) eGFR If 19 Below low normal MEDGEN (St NonAfricn Am mL/min/1. Juan C's [address] [place] [address], ) eGFR If Africn 22 Below low normal MEDGEN ( St Am mL/min/1. Juan C's [facility], ) BUN/Creatinine 13 Normal (applies MEDGEN (S t Ratio to non-numeric Juan C's results) [facility], ) Sodium 140 Normal (applies MEDGEN (St [Moles/volume] mmol/L to non-numeric Juan C's in Serum or results) [facility], ) Plasma Potassium 4.0 Normal (applies MEDGEN (St [Mass/volume] mmol/L to non-numeric Juan C's in Blood results) [facility], ) Chloride 104 Normal (applies MEDGEN (St [Moles/volume] mmol/L to non-numeric Juan C's in Serum or results) [facility], ) Plasma Carbon dioxide, 21 mmol/L Normal (applies MEDGEN ( St total to non-numeric Juan C's [Moles/volume] results) Medical, ) in Serum or Plasma Calcium 9.3 mg/dL Normal (applies MEDGEN (St [Moles/volume] to non-numeric Juan C's in Urine results) Medical, ) collected for unspecified duration ID Date Data Source [id number] 11/17/2019 12:00:00 AM EST [facility] ([facility], ) Name Value Range Interpretation Description Data Sup porting Code Source(s) Document(s ) Glucose 146 mg/dL Above high normal MEDGEN (St [Mass/volume] Juan C's in Urine [facility], ) collected for unspecified duration Urea nitrogen 41 mg/dL Above high normal MEDGEN ( St [Mass/volume] Juan C's in Serum or Medical, ) Plasma Creatinine 3.05 Above high normal MEDGEN (St [Interpretation mg/dL Juan C's ] in Urine [facility], ) eGFR If 19 Below low normal MEDGEN (St NonAfricn Am mL/min/1. Juan C's [facility], ) eGFR If Africn 22 Below low normal MEDGEN ( St Am mL/min/1. Juan C's [facility], ) BUN/Creatinine 13 Normal (applies MEDGEN (S t Ratio to non-numeric Juan C's results) Medical, ) Sodium 140 Normal (applies MEDGEN (St [Moles/volume] mmol/L to non-numeric Juan C's in Serum or results) Medical, ) Plasma Potassium 4.0 Normal (applies MEDGEN (St [Mass/volume] mmol/L to non-numeric Juan C's in Blood results) Medical, ) Chloride 104 Normal (applies MEDGEN (St [...] for unspecified duration ID Date Data Source [id number] 11/17/2019 12:00:00 AM EST [facility] ([facility], ) Name Value Range Interpretation Description Data Sup porting Code Source(s) Document(s ) Glucose 146 mg/dL Above high normal MEDGEN (St [Mass/volume] Juan C's in Urine [facility], ) collected for unspecified duration Creatinine 3.05 Above high normal MEDGEN (St [Interpretation mg/dL Juan C's ] in Urine [facility], ) Urea nitrogen 41 mg/dL Above high normal MEDGEN ( St [Mass/volume] Juan C's in Serum or [facility], ) Plasma eGFR If 19 Below low normal MEDGEN (St NonAfricn Am mL/min/1. Juan C 73 [facility], ) BUN/Creatinine 13 Normal (applies MEDGEN (S t Ratio to non-numeric Juan C's results) [facility], ) eGFR If Africn 22 Below low normal MEDGEN ( St Am mL/min/. Juan C 73 [facility], ) Potassium 4.0 Normal (applies MEDGEN (St [Mass/volume] mmol/L to non-numeric Juan C's in Blood results) [facility], ) Sodium 140 Normal (applies MEDGEN (St [Moles/volume] mmol/L to non-numeric Juan C's in Serum or results) [facility], ) Plasma Chloride 104 Normal (applies MEDGEN (St [Moles/volume] mmol/L to non-numeric Juan C's in Serum or results) [facility], ) Plasma Calcium 9.3 mg/dL Normal (applies MEDGEN (St [Moles/volume] to non-numeric Juan C's in Urine results) [facility], ) collected for unspecified duration Carbon dioxide, 21 mmol/L Normal (applies MEDGEN ( St total to non-numeric Juan C's [Moles/volume] results) [facility], ) in Serum or Plasma ID Date Data Source [id number] 11/17/2019 12:00:00 AM EST [facility] ([facility], ) Name Value Range Interpretation Description Data Sup porting Code Source(s) Document(s ) Glucose 146 mg/dL Above high normal MEDGEN (St [Mass/volume] Juan C's in Urine [facility], ) collected for unspecified duration Urea nitrogen 41 mg/dL Above high normal MEDGEN ( St [Mass/volume] Juan C's in Serum or [facility], ) Plasma Creatinine 3.05 Above high normal MEDGEN (St [Interpretation mg/dL Juan C's ] in Urine [facility], ) eGFR If 19 Below low normal MEDGEN (St NonAfricn Am mL/min/1. Juan C's [facility], ) eGFR If Africn 22 Below low normal MEDGEN ( St Am mL/min/. Juan C' 73 [facility], ) BUN/Creatinine 13 Normal (applies MEDGEN (S t Ratio to non-numeric Juan C's results) [facility], ) Sodium 140 Normal (applies MEDGEN (St [Moles/volume] mmol/L to non-numeric Juan C's in Serum or results) Medical, ) Plasma Chloride 104 Normal (applies MEDGEN (St [Moles/volume] mmol/L to non-numeric Juan C's in Serum or results) [facility], ) Plasma Potassium 4.0 Normal (applies MEDGEN (St [Mass/volume] mmol/L to non-numeric Juan C's in Blood results) [facility], ) Carbon dioxide, 21 mmol/L Normal (applies MEDGEN ( St total to non-numeric Juan C's [Moles/volume] results) [facility], ) in Serum or Plasma Calcium 9.3 mg/dL Normal (applies MEDGEN (St [Moles/volume] to non-numeric Juan C's in Urine results) [facility], ) collected for unspecified duration ID Date Data Source [id number] 11/17/2019 12:00:00 AM EST [facility] ([facility], ) Name Value Range Interpretation Description Data Sup porting Code Source(s) Document(s ) Glucose 146 mg/dL Above high normal MEDGEN (St [Mass/volume] Juan C's in Urine [facility], ) collected for unspecified duration Urea nitrogen 41 mg/dL Above high normal MEDGEN ( St [Mass/volume] Juan C's in Serum or [facility], ) Plasma Creatinine 3.05 Above high normal MEDGEN (St [Interpretation mg/dL Juan C's ] in Urine [facility], ) eGFR If 19 Below low normal MEDGEN (St NonAfricn Am mL/min/. Juan C's [facility], ) eGFR If Africn 22 Below low normal MEDGEN ( St Am mL/min/1. Juan C's [facility], ) BUN/Creatinine 13 Normal (applies MEDGEN (S t Ratio to non-numeric Juan C's results) [facility], ) Potassium 4.0 Normal (applies MEDGEN [...] total to non-numeric Juan C's [Moles/volume] results) [facility], ) in Serum or Plasma Calcium 9.3 mg/dL Normal (applies MEDGEN (St [Moles/volume] to non-numeric Juan C's in Urine results) [facility], ) collected for unspecified duration ID Date Data Source [id number] 11/17/2019 12:00:00 AM EST [facility] ([facility], ) Name Value Range Interpretation Description Data Sup porting Code Source(s) Document(s ) Glucose 146 mg/dL Above high normal MEDGEN (St [Mass/volume] Juan C's in Urine [facility], ) collected for unspecified duration Urea nitrogen 41 mg/dL Above high normal [facility] ( St [Mass/volume] Juan [facility]'s in Serum or [facility], ) Plasma Creatinine 3.05 Above high normal [facility] (St [Interpretation mg/dL Juan C's ] in Urine [facility], ) eGFR If 19 Below low normal MED[facility] (St NonAfricn Am mL/min/1. Juan Cs 73 [facility]) eGFR If Africn 22 Below low normal MEDGEN ( St Am mL/min/1. Juan Cs 73 [facility], ) BUN/Creatinine 13 Normal (applies [facility] (S t Ratio to non-numeric Juan C's results) [facility], ) Sodium 140 Normal (applies [facility] (St [Moles/volume] mmol/L to non-numeric [facility]'s in Serum or results) Medical, ) Plasma Potassium 4.0 Normal (applies [facility] (St [Mass/volume] mmol/L to non-numeric Juan C's in Blood results) [facility], ) Chloride 104 Normal (applies MEDGEN [...] for unspecified duration ID Date Data Source [id number] 11/17/2019 12:00:00 AM EST [facility] ([facility], ) Name Value Range Interpretation Description Data Sup porting Code Source(s) Document(s ) Glucose 146 mg/dL Above high normal [facility] (St [Mass/volume] [facility] in Urine [facility], ) collected for unspecified duration Urea nitrogen 41 mg/dL Above high normal [facility] ( St [Mass/volume] [facility] in Serum or Medical, ) Plasma Creatinine 3.05 Above high normal [facility] (St [Interpretation mg/dL Juan C's ] in Urine [facility], ) eGFR If 19 Below low normal [facility] (St NonAfricn Am mL/min/1. Juan C's 73 [facility], ) eGFR If Africn 22 Below low normal [facility] ( St Am mL/min/1. Juan C's 73 [facility], ) BUN/Creatinine 13 Normal (applies MEDGEN [...] Serum or Plasma ID Date Data Source [id number] 11/17/2019 12:00:00 AM EST [facility] ([facility], ) Name Value Range Interpretation Description Data Sup porting Code Source(s) Document(s ) Glucose 146 mg/dL Above high normal [facility] (St [Mass/volume] [facility] in Urine [facility], ) collected for unspecified duration Urea nitrogen 41 mg/dL Above high normal [facility] ( St [Mass/volume] Juan C's in Serum or [facility], ) Plasma Creatinine 3.05 Above high normal [facility] (St [Interpretation mg/dL Juan C's ] in Urine [facility], ) eGFR If 19 Below low normal [facility] (St NonAfricn Am mL/min/1. Juan C's 73 [facility], ) eGFR If Africn 22 Below low normal [facility] ( St Am mL/min/1. Juan C's 73 [facility], ) BUN/Creatinine 13 Normal (applies [facility] (S t Ratio to non-numeric Juan C's results) [facility], ) Sodium 140 Normal (applies [facility] (St [Moles/volume] mmol/L to non-numeric Juan C's in Serum or results) [facility], ) Plasma Potassium 4.0 Normal (applies [facility] (St [Mass/volume] mmol/L to non-numeric Juan C's in Blood results) [facility], ) Chloride 104 Normal (applies [facility] (St [Moles/volume] mmol/L to non-numeric Juan C's in Serum or results) [facility], ) Plasma Carbon dioxide, 21 mmol/L Normal (applies [facility] ( St total to non-numeric Juan C's [Moles/volume] results) [facility], ) in Serum or Plasma Calcium 9.3 mg/dL Normal (applies [facility] (St [Moles/volume] to non-numeric Juan C's in Urine results) [facility], ) collected for unspecified duration ID Date Data Source [id number] 11/17/2019 12:00:00 AM EST [facility] ([facility], ) Name Value Range Interpretation Description Data Sup porting Code Source(s) Document(s ) Glucose 146 mg/dL Above high normal [facility] (St [Mass/volume] [facility] C[facility] in Urine [facility], ) collected for unspecified duration Urea nitrogen 41 mg/dL Above high normal [facility] ( St [Mass/volume] Juan C's in Serum or [facility], ) Plasma Creatinine 3.05 Above high normal [facility] (St [Interpretation mg/dL Juan C's ] in Urine [facility], ) eGFR If 19 Below low normal [facility] (St NonAfricn Am mL/min/1. Juan C's 73 [facility], ) eGFR If Africn 22 Below low normal [facility] ( St Am mL/min/1. Juan C's 73 [facility], ) BUN/Creatinine 13 Normal (applies [facility] (S t Ratio to non-numeric Juan C's results) [facility], ) Sodium 140 Normal (applies [facility] (St [Moles/volume] mmol/L to non-numeric [facility]'s in Serum or results) Medical, ) Plasma Potassium 4.0 Normal (applies [facility] (St [Mass/volume] mmol/L to non-numeric Juan C's in Blood results) [facility], ) Chloride 104 Normal (applies [facility] (St [Moles/volume] mmol/L to non-numeric Juan C's in Serum or results) [facility], ) Plasma Carbon dioxide, 21 mmol/L Normal (applies [facility] ( St total to non-numeric Juan C's [Moles/volume] results) [facility], ) in Serum or Plasma Calcium 9.3 mg/dL Normal (applies [facility] (St [Moles/volume] to non-numeric Juan C's in Urine results) [facility], ) collected for unspecified duration ID Date Data Source [id number] 11/17/2019 12:00:00 AM EST [facility] ([facility], ) Name Value Range Interpretation Description Data Sup porting Code Source(s) Document(s ) Glucose 146 mg/dL Above high normal [facility] (St [Mass/volume] [facility] C[facility] in Urine [facility], ) collected for unspecified duration Urea nitrogen 41 mg/dL Above high normal [facility] ( St [Mass/volume] Juan C's in Serum or [facility], ) Plasma Creatinine 3.05 Above high normal [facility] (St [Interpretation mg/dL Juan C's ] in Urine [facility], ) eGFR If Africn 22 Below low normal [facility] ( St Am mL/min/1. Juan C's 73 [facility], ) eGFR If 19 Below low normal [facility] (St NonAfricn Am mL/min/1. Juan C's 73 [facility], ) BUN/Creatinine 13 Normal (applies [facility] (S t Ratio to non-numeric Juan C's results) [facility], ) Sodium 140 Normal (applies [facility] (St [Moles/volume] mmol/L to non-numeric Juan C's in Serum or results) [facility], ) Plasma Potassium 4.0 Normal (applies [...] to non-numeric Juan C's in Urine results) [facility], ) collected for unspecified duration ID Date Data Source [id number] 11/17/2019 12:00:00 AM EST [facility] ([facility], ) Name Value Range Interpretation Description Data Sup porting Code Source(s) Document(s ) Glucose 146 mg/dL Above high normal [facility] (St [Mass/volume] Juan C's in Urine [facility], ) collected for unspecified duration Urea nitrogen 41 mg/dL Above high normal [facility] ( St [Mass/volume] [facility] in Serum or Medical, ) Plasma Creatinine 3.05 Above high normal [facility] (St [Interpretation mg/dL Juan C's ] in Urine [facility], ) eGFR If 19 Below low normal [facility] (St NonAfricn Am mL/min/1. Juan C's 73 [facility]) eGFR If Africn 22 Below low normal [facility] ( St Am mL/min/1. Juan C's 73 [facility], ) BUN/Creatinine 13 Normal (applies [facility] (S t Ratio to non-numeric Juan C's results) [facility], ) Potassium 4.0 Normal (applies [facility] (St [Mass/volume] mmol/L to non-numeric Juan C's in Blood results) [facility], ) Sodium 140 Normal (applies [facility] (St [Moles/volume] mmol/L to non-numeric Juan C's in Serum or results) [facility], ) Plasma Chloride 104 Normal (applies [facility] (St [Moles/volume] mmol/L to non-numeric Juan C's in Serum or results) Medical, ) Plasma Calcium 9.3 mg/dL Normal (applies [facility] (St [Moles/volume] to non-numeric Juan C's in Urine results) [facility], ) collected for unspecified duration Carbon dioxide, 21 mmol/L Normal (applies [facility] ( St total to non-numeric Juan C's [Moles/volume] results) [facility], ) in Serum or Plasma ID Date Data Source [id number] 11/17/2019 12:00:00 AM EST [facility] ([facility], ) Name Value Range Interpretation Description Data Sup porting Code Source(s) Document(s ) Glucose 146 mg/dL Above high normal [facility] (St [Mass/volume] [facility] C's in Urine [facility], ) collected for unspecified duration Urea nitrogen 41 mg/dL Above high normal [facility] ( St [Mass/volume] Juan C's in Serum or [facility], ) Plasma Creatinine 3.05 Above high normal [facility] (St [Interpretation mg/dL Juan C's ] in Urine [facility], ) eGFR If Africn 22 Below low normal [facility] ( St Am mL/min/1. Juan C's 73 [facility], ) eGFR If 19 Below low normal [facility] (St NonAfricn Am mL/min/1. Juan C's 73 [facility], ) BUN/Creatinine 13 Normal (applies [facility] (S t Ratio to non-numeric Juan C's results) [facility], ) Sodium 140 Normal (applies [facility] (St [Moles/volume] mmol/L to non-numeric Juan C's in Serum or results) [facility], ) Plasma Potassium 4.0 Normal (applies [facility] (St [Mass/volume] mmol/L to non-numeric Juan C's in Blood results) [facility], ) Carbon dioxide, 21 mmol/L Normal (applies [facility] ( St total to non-numeric Juan C's [Moles/volume] results) [facility], ) in Serum or Plasma Chloride 104 Normal (applies [facility] (St [Moles/volume] mmol/L to non-numeric Juan C's in Serum or results) [facility], ) Plasma Calcium 9.3 mg/dL Normal (applies [facility] (St [Moles/volume] to non-numeric Juan C's in Urine results) [facility], ) collected for unspecified duration ID Date Data Source [id number] 09/22/2019 12:00:00 AM EST [facility] ([facility], ) Name Value Range Interpretation Code Description Data Lisa rce(s) Supporting Document(s ) ID Date Data Source [id number] 09/22/2019 12:00:00 AM EST [facility] ([facility], ) Name Value Range Interpretation Code Description Data Supporting Source(s) Document(s ) PTH, Intact 14 pg/mL Below low normal [facility] ([facility], ) ID Date Data Source [id number] 09/22/2019 12:00:00 AM EST [facility] (St [facility], ) Name Value Range Interpretation Code Description Data Supporting Source(s) Document(s ) Ferritin, 329 ng/mL Normal (applies to [facility] (St Serum non-numeric Juan C's results) [facility], ) ID Date Data Source [id number] 09/22/2019 12:00:00 AM EST [facility] (St [facility], ) Name Value Range Interpretation Description Data Sup porting Code Source(s) Document(s ) Deprecated 4.8 mg/dL Above high normal [facility] (St Phosphorus Juan C's [Mass/time] in [facility], ) 24 hour Urine ID Date Data Source [id number] 09/22/2019 12:00:00 AM EST [facility] (St [facility], ) Name Value Range Interpretation Code Description Data Lisa rce(s) Supporting Document(s ) RAGINI Normal (applies to [facility] (St Interpreta non-numeric results) [facility]'s M edical, tion:U ) ID Date Data Source [id number] 09/22/2019 12:00:00 AM EST [facility] (St [facility], ) Name Value Range Interpretation Description Data Sup porting Code Source(s) Document(s ) Vitamin D, 36.2 Normal (applies to [facility] (St 25-Hydroxy ng/mL non-numeric Juan C's results) [facility], ) ID Date Data Source [id number] 09/22/2019 12:00:00 AM EST [facility] ([facility], ) Name Value Range Interpretation Code Description Data Supporting Source(s) Document(s ) Albumin, 693.2 Normal (applies to [facility] (St Urine ug/mL non-numeric Juan C's results) [facility], ) Alb/Creat 394.1 mg/g Above high normal [facility] (St Ratio creat [facility], ) ID Date Data Source [id number] 09/22/2019 12:00:00 AM EST [facility] ([facility], ) Name Value Range Interpretation Description Data Sup porting Code Source(s) Document(s ) Free [place] 476.00 Above high normal [facility] (St Lt mg/L Juan [facility]'s [facility], ) Free Lambda 44.50 mg/L Above high normal [facility] (S t Lt Juan C's Chains,Ur [facility], ) [place] 10.70 Above high normal [facility] (St a Ratio,U [facility], ) ID Date Data Source [id number] 09/22/2019 12:00:00 AM EST [facility] ([facility], ) Name Value Range Interpretation Description Data Sup porting Code Source(s) Document(s ) Free [place] 38.9 mg/L Above high normal [facility] (St Lt Chains,S [facility]) Free Lambda 133.0 mg/L Above high normal [facility] (S t Lt Chains,S [facility], ) [place] 0.29 Normal (applies to [facility] (S t a Ratio,S non-numeric Juan C's results) [facility], ) ID Date Data Source [id number] 09/22/2019 12:00:00 AM EST [facility] ([facility], ) Name Value Range Interpretation Code Description Data Supporting Source(s) Document(s ) Creatinine 175.9 Normal (applies to [facility] (St , Urine mg/dL non-numeric Juan C's results) [facility], ) Protein/Cr 833 mg/g Above high normal [facility] (St eat Ratio creat [facility], ) ID Date Data Source [id number] 09/22/2019 12:00:00 AM EST [facility] (St [facility], ) Name Value Range Interpretation Description Data Sup porting Code Source(s) Document(s ) Immunofixation Normal (applies [facility] (S t Result, Serum to non-numeric Juan C's results) [facility]) Immunoglobulin G, 3973 Above high normal MEDG EN (St Qn, Serum mg/dL [facility]) Immunoglobulin M, 13 mg/dL Below low normal MEDGE N (St Qn, Serum [facility], ) Immunoglobulin A, 25 mg/dL Below low normal MEDGE N (St Qn, Serum [facility]'s [facility], ) ID Date Data Source [id number] 09/22/2019 12:00:00 AM EST [facility] ([facility], ) Name Value Range Interpretation Description Data Sup porting Code Source(s) Document(s ) Iron 297 ug/dL Normal (applies to [facility] (St Bind.Cap.(TIBC non-numeric Juan C's ) results) Medical, ) UIBC 222 ug/dL Normal (applies to [facility] (St non-numeric Juan C's results) [facility], ) Iron 75 ug/dL Normal (applies to [facility] (St [Mass/volume] non-numeric Juan C's in Serum or results) [facility], ) Plasma Iron 25 % Normal (applies to [facility] (St saturation non-numeric Juan C's [Mass results) [facility], ) Fraction] in Serum or Plasma ID Date Data Source [id number] 09/22/2019 12:00:00 AM EST [facility] ([facility], ) Name Value Range Interpretation Description Data Sup porting Code Source(s) Document(s ) Protein,Tot 146.6 Normal (applies to [facility] (S t al,Urine mg/dL non-numeric Juan C's results) [facility], ) Albumin, U 47.8 % Normal (applies to [facility] (St non-numeric Juan C's results) [facility], ) Alpha-1-Nadine 3.5 % Normal (applies to [facility] (S t bulin, U non-numeric Juan C's results) [facility], ) Alpha-2-Nadine 9.6 % Normal (applies to [facility] (S t bulin, U non-numeric Juan C's results) Medical, ) Beta 24.4 % Normal (applies to [facility] (St Globulin, U non-numeric Juan C's results) [facility], ) Gamma 14.8 % Normal (applies to [facility] (St Globulin, U non-numeric Juan C's results) Medical, ) M-Kevyn, % 9.8 % Above high normal [facility] ([facility], ) Please Normal (applies to [facility] (St note: non-numeric Juan C's results) [facility], ) PDF . Normal (applies to [facility] (St non-numeric Juan C's results) [facility], ) ID Date Data Source [id number] 09/22/2019 12:00:00 AM EST [facility] ([facility], ) Name Value Range Interpretation Description Data Sup porting Code Source(s) Document(s ) Protein 9.0 g/dL Above high normal [facility] (St [Mass/volume] in Juan C's Serum or Plasma [facility], ) Mlgsh-4-Pkyzkhgl 0.2 g/dL Normal (applies [facility] (St to non-numeric Juan C's results) [facility], PC) Microalbumin 4.0 g/dL Normal (applies [facility] (St [Mass/time] in to non-numeric Juan C's Urine collected results) Medical, for unspecified PC) duration Ryvzh-3-Utaowhze 0.8 g/dL Normal (applies [facility] (St to non-numeric Juan C's results) [facility], PC) Beta globulin 0.8 g/dL Normal (applies [facility] (St [Mass/volume] in to non-numeric Juan C's Urine by results) Medical, Electrophoresis PC) Gamma globulin 3.2 g/dL Above high normal [facility] (St [Mass/volume] by Juan C's Electrophoresis in Medical, Urine collected ) for unspecified duration M-Kevyn 2.9 g/dL Above high normal [facility] ([facility], ) Globulin, Total 5.0 g/dL Above high normal [facility] ([facility], ) A/G Ratio 0.8 Normal (applies [facility] (St to non-numeric Juan C's results) [facility], PC) Please note: Normal (applies [facility] (St to non-numeric Juan C's results) Medical, ) PDF . Normal (applies [facility] (St to non-numeric Juan C's results) [facility], ) ID Date Data Source [id number] 09/22/2019 12:00:00 AM EST [facility] ([facility], ) Name Value Range Interpretation Description [...] to non-numeric Juan C's Urine collected results) [facility], for unspecified PC) duration Protein Abnormal [...] results) Medical, ) ID Date Data Source [id number] 09/22/2019 12:00:00 AM EST [facility] (St Julienne [...] (St Oxalate to non-numeric Juan C's results) [facility]) Bacteria Few Normal (applies [facility]GEN (St [Presence] in to non-numeric Juan C's Prostatic results) [facility]) fluid by Light microscopy ID Date Data Source [id number] 09/22/2019 12:00:00 AM EST [facility] (St [facility], ) Name Value Range Interpretation Description Data Sup porting Code Source(s) Document(s ) Leukocytes 9.5 Normal (applies [facility] (St [#/volume] in x10E3/uL to non-numeric Juan C's Blood by results) [facility]) Automated count Hemoglobin 10.9 Below low normal [facility] (St [Mass/volume] in g/dL [facility]'s Blood [facility]) Erythrocytes 3.28 Below low normal [facility] (St [#/volume] in x10E6/uL Juan C's Blood by [facility]) Automated count Hematocrit 32.1 % Below low normal [facility] (St [Volume Juan C's Fraction] of [facility]) Blood by Automated count MCV 98 fL Above high normal [facility] ([facility], ) MCH 33.2 pg Above high normal [facility] ([facility]) MCHC 34.0 Normal (applies [facility] (St g/dL to non-numeric Juan C's results) [facility]) RDW 17.3 % Above high normal [facility] ([facility], ) Neutrophils [#] 53 % Normal (applies [facility] ( St in Body fluid by to non-numeric Juan C's Manual count results) [facility]) Platelets 240 Normal (applies [facility] (St [#/area] in x10E3/uL to non-numeric Juan C's Blood by results) [facility]) Microscopy high power field Lymphs 19 % Normal (applies [facility] (St to non-numeric Juan C's results) [facility]) Monocytes 15 % Normal (applies [facility] (St [#/volume] in to non-numeric Juan C's Cord blood results) [facility]) Eos 11 % Normal (applies [facility] (St to non-numeric Juan C's results) [facility]) Basos 0 % Normal (applies [facility] (St to non-numeric Juan C's results) [facility]) Lymphs 1.8 Normal (applies [facility] (St (Absolute) x10E3/uL to non-numeric Juan C's results) Medical, ) Neutrophils 5.1 Normal (applies MEDGEN (St (Absolute) x10E3/uL to non-numeric Juan C's results) [facility], ) Monocytes(Absolu 1.5 Above high normal MEDGE N (St te) x10E3/uL [facility]'s [facility], ) Eos (Absolute) 1.0 Above high normal [facility]GEN (St x10E3/uL [facility], ) Immature 2 % Normal (applies [facility]GEN (St Granulocytes to non-numeric Juan C's results) [facility], ) Baso (Absolute) 0.0 Normal (applies MEDGEN ( St x10E3/uL to non-numeric Juan C's results) [facility], ) Immature Grans 0.2 Above high normal [facility] (St (Abs) x10E3/uL [facility], ) Hematology Note: Normal (applies [facility] (St Comments: to non-numeric Juan C's results) [facility], ) ID Date Data Source [id number] 09/22/2019 12:00:00 AM EST [facility] (St [facility], ) Name Value Range Interpretation Code Description Data Lisa rce(s) Supporting Document(s ) ID Date Data Source [id number] 09/22/2019 12:00:00 AM EST [facility] ([facility], ) Name Value Range Interpretation Code Description Data Supporting Source(s) Document(s ) PTH, Intact 14 pg/mL Below low normal [facility] ([facility], ) ID Date Data Source [id number] 09/22/2019 12:00:00 AM EST [facility] ([facility], ) Name Value Range Interpretation Code Description Data Supporting Source(s) Document(s ) Ferritin, 329 ng/mL Normal (applies to [facility] (St Serum non-numeric Juan C's results) [facility], ) ID Date Data Source [id number] 09/22/2019 12:00:00 AM EST [facility] ([facility], ) Name Value Range Interpretation Description Data Sup porting Code Source(s) Document(s ) Deprecated 4.8 mg/dL Above high normal [facility] (St Phosphorus Juan C's [Mass/time] in Medical, ) 24 hour Urine ID Date Data Source [id number] 09/22/2019 12:00:00 AM EST [facility] Name Value Range Interpretation Code Description Data Lisa rce(s) Supporting Document(s ) RAGINI Normal (applies to [facility] (St Interpreta non-numeric results) Juan C's M edical, tion:U PC) ID Date Data Source [id number] 09/22/2019 12:00:00 AM EST [facility] ([facility]) Name Value Range Interpretation Description Data Sup porting Code Source(s) Document(s ) Vitamin D, 36.2 Normal (applies to [facility] (St 25-Hydroxy ng/mL non-numeric Juan C's results) Medical, ) ID Date Data Source [id number] 09/22/2019 12:00:00 AM EST [facility] ([facility] Name Value Range Interpretation Code Description Data Supporting Source(s) Document(s ) Albumin, 693.2 Normal (applies to [facility]GEN (St Urine ug/mL non-numeric Juan C's results) Medical, ) Alb/Creat 394.1 mg/g Above high normal MEDGEN (St Ratio creat [facility]'s [facility], ) ID Date Data Source [id number] 09/22/2019 12:00:00 AM EST [facility] ([facility]) Name Value Range Interpretation Description Data Sup porting Code Source(s) Document(s ) Free [place] 476.00 Above high normal MEDGEN (St Lt mg/L [facility]'s [facility], [facility]) Free Lambda 44.50 mg/L Above high normal [facility] (S t Lt Juan C's [facility], [facility]) [place] 10.70 Above high normal [facility]GEN (St a Ratio,U [facility], ) ID Date Data Source [id number] 09/22/2019 12:00:00 AM EST [facility] ([facility] Name Value Range Interpretation Description Data Sup porting Code Source(s) Document(s ) Free [place] 38.9 mg/L Above high normal MEDGEN (St Lt Chains,S [facility]) Free Lambda 133.0 mg/L Above high normal MEDGEN (S t Lt Chains,S [facility]'s Medical, PC) [place] 0.29 Normal (applies to MEDGEN (S t a Ratio,S non-numeric Juan C's results) [facility]) ID Date Data Source [id number] 09/22/2019 12:00:00 AM EST MED[facility] ([facility]) Name Value Range Interpretation Code Description Data Supporting Source(s) Document(s ) Creatinine 175.9 Normal (applies to MEDGEN (St , Urine mg/dL non-numeric Juan C's results) [facility]) Protein/Cr 833 mg/g Above high normal MEDGEN (St eat Ratio creat [facility]) ID Date Data Source [id number] 09/22/2019 12:00:00 AM EST MEDGEN ([facility]) Name Value Range Interpretation Description Data Sup porting Code Source(s) Document(s ) Immunofixation Normal (applies MEDGEN (S t Result, Serum to non-numeric [facility]'s results) [facility]) Immunoglobulin A, 25 mg/dL Below low normal MEDGE N (St Qn, Serum [facility]) Immunoglobulin G, 3973 Above high normal MEDG EN (St Qn, Serum mg/dL [facility]) Immunoglobulin M, 13 mg/dL Below low normal MEDGE N (St Qn, Serum [facility]) ID Date Data Source [id number] 09/22/2019 12:00:00 AM EST MED[facility] ([facility]) Name Value Range Interpretation Description Data Sup porting Code Source(s) Document(s ) Protein,Tot 146.6 Normal (applies to MEDGEN (S t al,Urine mg/dL non-numeric Juan C's results) [facility]) Albumin, U 47.8 % Normal (applies to MEDGEN (St non-numeric Juan C's results) [facility]) Alpha-1-Nadine 3.5 % Normal (applies to MEDGEN (S t bulin, U non-numeric Juan C's results) [facility]) Alpha-2-Nadine 9.6 % Normal (applies to MEDGEN (S t bulin, U non-numeric Juan C's results) [facility]) Beta 24.4 % Normal (applies to MEDGEN (St Globulin, U non-numeric Juan C's results) [facility]) Gamma 14.8 % Normal (applies to MEDGEN (St Globulin, U non-numeric [facility] C's results) Medical, ) M-Kevyn, % 9.8 % Above high normal MEDGEN ([facility], ) Please Normal (applies to MEDGEN (St note: non-numeric Juan C's results) [facility], ) PDF . Normal (applies to MEDGEN (St non-numeric [facility]'s results) [facility], ) ID Date Data Source [id number] 09/22/2019 12:00:00 AM EST MEDGEN ([facility], ) Name Value Range Interpretation Description Data Sup porting Code Source(s) Document(s ) Protein 9.0 g/dL Above high normal MEDGEN (St [Mass/volume] in Juan C's Serum or Plasma Medical, ) Microalbumin 4.0 g/dL Normal (applies MEDGEN (St [Mass/time] in to non-numeric Juan C's Urine collected results) Medical, for unspecified PC) duration Bzsue-6-Lgauykkc 0.2 g/dL Normal (applies MEDGEN (St to non-numeric [facility]'s results) Medical, PC) Abrhl-0-Myvohjul 0.8 g/dL Normal (applies MEDGEN (St to non-numeric [facility]'s results) [facility], PC) Beta globulin 0.8 g/dL Normal (applies MEDGEN (St [Mass/volume] in to non-numeric Juan C's Urine by results) Medical, Electrophoresis PC) Gamma globulin 3.2 g/dL Above high normal MEDGEN (St [Mass/volume] by Juanc 's Electrophoresis in Medical, Urine collected PC) for unspecified duration Globulin, Total 5.0 g/dL Above high normal MEDGEN ([facility], ) M-Kevyn 2.9 g/dL Above high normal MEDGEN ([facility], ) A/G Ratio 0.8 Normal (applies MEDGEN (St to non-numeric Juan C's results) Medical, ) Please note: Normal (applies MEDGEN (St to non-numeric [facility]'s results) Medical, ) PDF . Normal (applies MEDGEN (St to non-numeric [facility]'s results) Medical, ) ID Date Data Source [id number] 09/22/2019 12:00:00 AM EST MEDGEN ([facility], ) Name Value Range Interpretation Description [...] to non-numeric [facility]'s results) Medical, ) Urine-Color Yellow Normal (applies MEDGEN (St to non-numeric [facility] C's results) Medical, ) WBC Esterase Negative Normal (applies MEDGEN (St to non-numeric [facility]'s results) Medical, ) Protein Abnormal MEDGEN (St [Mass/volume] in (applies to Juan C's Lower non-numeric Medical, respiratory results) ) specimen Glucose Negative Normal (applies MEDGEN (St [Mass/volume] in to non-numeric Juan [facility]'s Urine collected results) [facility], for unspecified PC) duration Ketones Negative [...] results) Medical, ) ID Date Data Source [id number] 09/22/2019 12:00:00 AM EST MEDGEN (St Julienne [...] in to non-numeric Juan C's Urine results) [facility], ) sediment by Automated count Cast Type Granular Abnormal (applies MEDGEN (St casts to non-numeric Juan C's results) [facility], ) Crystals Present Abnormal (applies MEDGEN (St [#/area] in to non-numeric Juan C's Body fluid by results) [facility], ) Light microscopy Crystal Type Calcium Normal (applies MEDGEN (St Oxalate to non-numeric Juan C's results) [facility], ) Mucus Threads Present Normal (applies MEDGEN (St to non-numeric Juan C's results) [facility], ) Bacteria Few Normal (applies MEDGEN (St [Presence] in to non-numeric Juan C's Prostatic results) [facility], ) fluid by Light microscopy ID Date Data Source [id number] 09/22/2019 12:00:00 AM EST MEDGEN (St [facility], ) Name Value Range Interpretation Description Data Sup porting Code Source(s) Document(s ) Leukocytes 9.5 Normal (applies MEDGEN (St [#/volume] in x10E3/uL to non-numeric Juan [facility]'s Blood by results) [facility], ) Automated count Erythrocytes 3.28 Below low normal MEDGEN (St [#/volume] in x10E6/uL Juan [facility]'s Blood by [facility], ) Automated count Hemoglobin 10.9 Below low normal MEDGEN (St [Mass/volume] in g/dL [facility]'s Blood [facility], ) Hematocrit 32.1 % Below low normal MEDGEN (St [Volume Juan C's Fraction] of [facility], ) Blood by Automated count MCV 98 fL Above high normal MEDGEN ([facility], ) MCH 33.2 pg Above high normal MEDGEN ([facility], ) MCHC 34.0 Normal (applies MEDGEN (St g/dL to non-numeric Juan C's results) [facility]) RDW 17.3 % Above high normal MEDGEN ([facility], ) Neutrophils [#] 53 % Normal (applies MEDGEN ( St in Body fluid by to non-numeric Juan C's Manual count results) [facility], ) Platelets 240 Normal (applies MEDGEN (St [#/area] in x10E3/uL to non-numeric Juan C's Blood by results) [facility]) Microscopy high power field Lymphs 19 % Normal (applies MEDGEN (St to non-numeric Juan C's results) [facility], ) Monocytes 15 % Normal (applies MEDGEN (St [#/volume] in to non-numeric Juan C's Cord blood results) [facility], ) Eos 11 % Normal (applies MEDGEN (St to non-numeric Juan C's results) [facility], ) Basos 0 % Normal (applies MEDGEN (St to non-numeric Juan C's results) [facility], ) Neutrophils 5.1 Normal (applies MEDGEN (St (Absolute) x10E3/uL to non-numeric Juan C's results) [facility], ) Lymphs 1.8 Normal (applies MEDGEN (St (Absolute) x10E3/uL to non-numeric Juan C's results) [facility], ) Monocytes(Absolu 1.5 Above high normal MEDGE N (St te) x10E3/uL [facility]'s [facility], ) Eos (Absolute) 1.0 Above high normal MEDGEN (St x10E3/uL [facility], ) Baso (Absolute) 0.0 Normal (applies MEDGEN ( St x10E3/uL to non-numeric Juan C's results) [facility], ) Immature 2 % Normal (applies MEDGEN (St Granulocytes to non-numeric Juan C's results) [facility], ) Immature Grans 0.2 Above high normal MEDGEN (St (Abs) x10E3/uL [facility]'s [facility], ) Hematology Note: Normal (applies MEDGEN (St Comments: to non-numeric Juan C's results) [facility], ) ID Date Data Source [id number] 09/22/2019 12:00:00 AM EST MEDGEN (St [facility], ) Name Value Range Interpretation Code Description Data Lisa rce(s) Supporting Document(s ) ID Date Data Source [id number] 09/22/2019 12:00:00 AM EST MEDGEN ([facility], ) Name Value Range Interpretation Code Description Data Supporting Source(s) Document(s ) PTH, Intact 14 pg/mL Below low normal MEDGEN ([facility], ) ID Date Data Source [id number] 09/22/2019 12:00:00 AM EST MEDGEN (St [facility], ) Name Value Range Interpretation Code Description Data Supporting Source(s) Document(s ) Ferritin, 329 ng/mL Normal (applies to MEDGEN (St Serum non-numeric Juan C's results) [facility], ) ID Date Data Source [id number] 09/22/2019 12:00:00 AM EST MEDGEN ([facility], ) Name Value Range Interpretation Description Data Sup porting Code Source(s) Document(s ) Deprecated 4.8 mg/dL Above high normal MEDGEN (St Phosphorus Juan C's [Mass/time] in [facility], ) 24 hour Urine ID Date Data Source [id number] 09/22/2019 12:00:00 AM EST MEDGEN ([facility], ) Name Value Range Interpretation Code Description Data Lisa rce(s) Supporting Document(s ) ID Date Data Source [id number] 09/22/2019 12:00:00 AM EST MEDGEN (St [facility], ) Name Value Range Interpretation Description Data Sup porting Code Source(s) Document(s ) Vitamin D, 36.2 Normal (applies to MEDGEN (St 25-Hydroxy ng/mL non-numeric Juan C's results) [facility], ) ID Date Data Source [id number] 09/22/2019 12:00:00 AM EST MEDGEN ([facility], ) Name Value Range Interpretation Code Description Data Supporting Source(s) Document(s ) Albumin, 693.2 Normal (applies to MEDGEN (St Urine ug/mL non-numeric Juan C's results) [facility], ) Alb/Creat 394.1 mg/g Above high normal MEDGEN (St Ratio creat [facility], ) ID Date Data Source [id number] 09/22/2019 12:00:00 AM EST MEDGEN ([facility], ) Name Value Range Interpretation Description Data Sup porting Code Source(s) Document(s ) Free [place] 476.00 Above high normal MEDGEN (St Lt mg/L Juan C's Chains,[facility], ) Free Lambda 44.50 mg/L Above high normal MEDGEN (S t Lt Juan C's Chains,[facility], ) [place] 10.70 Above high normal MEDGEN (St a Ratio,U [facility]'s [facility], ) ID Date Data Source [id number] 09/22/2019 12:00:00 AM EST MEDGEN ([facility], ) Name Value Range Interpretation Description Data Sup porting Code Source(s) Document(s ) Free [place] 38.9 mg/L Above high normal MEDGEN (St Lt Chains,S [facility], ) Free Lambda 133.0 mg/L Above high normal MEDGEN (S t Lt Chains,S [facility], ) [place]ambd 0.29 Normal (applies to MEDGEN (S t a Ratio,S non-numeric Juan C's results) [facility]) ID Date Data Source [id number] 09/22/2019 12:00:00 AM EST MEDGEN ([facility]) Name Value Range Interpretation Code Description Data Supporting Source(s) Document(s ) Creatinine 175.9 Normal (applies to MEDGEN (St , Urine mg/dL non-numeric Juan C's results) [facility]) Protein/Cr 833 mg/g Above high normal MEDGEN (St eat Ratio creat [facility]) ID Date Data Source [id number] 09/22/2019 12:00:00 AM EST MEDGEN ([facility]) Name Value Range Interpretation Description Data Sup porting Code Source(s) Document(s ) Immunoglobulin A, 25 mg/dL Below low normal MEDGE N (St Qn, Serum [facility]) Immunoglobulin G, 3973 Above high normal MEDG EN (St Qn, Serum mg/dL [facility]) Immunoglobulin M, 13 mg/dL Below low normal MEDGE N (St Qn, Serum [facility]) ID Date Data Source [id number] 09/22/2019 12:00:00 AM EST MEDGEN ([facility]) Name Value Range Interpretation Description Data Sup porting Code Source(s) Document(s ) Iron 297 ug/dL Normal (applies to MEDGEN (St Bind.Cap.(TIBC non-numeric Juan C's ) results) [facility]) UIBC 222 ug/dL Normal (applies to MEDGEN (St non-numeric Juan C's results) [facility]) Iron 75 ug/dL Normal (applies to MEDGEN (St [Mass/volume] non-numeric Juan C's in Serum or results) [facility]) Plasma Iron 25 % Normal (applies to MEDGEN (St saturation non-numeric Juan C's [Mass results) [facility]) Fraction] in Serum or Plasma ID Date Data Source [id number] 09/22/2019 12:00:00 AM EST MEDGEN ([facility], ) Name Value Range Interpretation Code Description Data Supporting Source(s) Document(s ) Protein,To 146.6 Normal (applies to MEDGEN (St ruth,Urine mg/dL non-numeric Juan C's results) [facility], ) Albumin, U 47.8 % Normal (applies to MEDGEN (St non-numeric [facility] C's results) Medical, ) Alpha-1-Gl 3.5 % Normal (applies to MEDGEN (St obulin, U non-numeric Juan C's results) Medical, ) Alpha-2-Gl 9.6 % Normal (applies to MEDGEN (St obulin, U non-numeric Juan C's results) Medical, ) Gamma 14.8 % Normal (applies to MEDGEN (St Globulin, non-numeric Juan C's U results) [facility], ) Beta 24.4 % Normal (applies to MEDGEN (St Globulin, non-numeric Juan C's U results) Medical, ) M-Kevyn, % 9.8 % Above high normal [facility] ([facility], ) PDF . Normal (applies to MEDGEN (St non-numeric Juan C's results) Medical, ) ID Date Data Source [id number] 09/22/2019 12:00:00 AM EST MEDGEN ([facility], ) Name Value Range Interpretation Description Data Sup porting Code Source(s) Document(s ) Protein 9.0 g/dL Above high normal MEDGEN (St [Mass/volume] in Juan C's Serum or Plasma Medical, ) Zftjr-6-Tgnjhafx 0.2 g/dL Normal (applies MEDGEN (St to non-numeric Juan C's results) [facility], ) Microalbumin 4.0 g/dL Normal (applies MEDGEN (St [Mass/time] in to non-numeric Juan C's Urine collected results) [facility], for unspecified PC) duration Kqauh-5-Qcopsvqw 0.8 g/dL Normal (applies MEDGEN (St to non-numeric Juan C's results) [facility], ) Gamma globulin 3.2 g/dL Above high normal MEDGEN (St [Mass/volume] by Juan C's Electrophoresis in Medical, Urine collected ) for unspecified duration Beta globulin 0.8 g/dL Normal (applies MEDGEN (St [Mass/volume] in to non-numeric Juan C's Urine by results) Medical, Electrophoresis PC) M-Kevyn 2.9 g/dL Above high normal MEDGEN ([facility], ) Globulin, Total 5.0 g/dL Above high normal MEDGEN ([facility], ) A/G Ratio 0.8 Normal (applies MEDGEN (St to non-numeric Juan C's results) Medical, PC) PDF . Normal (applies MEDGEN (St to non-numeric Juan C's results) Medical, ) ID Date Data Source [id number] 09/22/2019 12:00:00 AM EST MEDGEN ([facility], ) Name Value Range Interpretation Description [...] (S t to non-numeric Juan C's results) [facility], ) Microscopic See below: Normal (applies MEDGEN (St Examination to non-numeric Juan C's results) [facility], ) ID Date Data Source [id number] 09/22/2019 12:00:00 AM EST MEDGEN ([facility], ) Name Value Range Interpretation Description Data Sup porting Code Source(s) Document(s ) WBC 0-5 Normal (applies MEDGEN (St to non-numeric Juan C's results) Medical, ) RBC 0-2 Normal (applies MEDGEN (St to non-numeric Juan C's results) [facility], ) Casts Present Abnormal (applies MEDGEN (St [#/area] in to non-numeric Juan C's Urine results) [facility], ) sediment by Automated count Epithelial None seen Normal (applies MEDGEN (St Cells (non to non-numeric Juan C's renal) results) [facility], ) Cast Type Granular Abnormal (applies MEDGEN (St casts to non-numeric Juan C's results) [facility], ) Crystals Present Abnormal (applies MEDGEN (St [#/area] in to non-numeric Juan C's Body fluid by results) [facility], ) Light microscopy Crystal Type Calcium Normal (applies MEDGEN (St Oxalate to non-numeric Juan C's results) [facility], ) Mucus Threads Present Normal (applies MEDGEN (St to non-numeric Juan C's results) [facility], ) Bacteria Few Normal (applies MEDGEN (St [Presence] in to non-numeric Juan C's Prostatic results) [facility], ) fluid by Light microscopy ID Date Data Source [id number] 09/22/2019 12:00:00 AM EST MEDGEN ([facility], ) Name Value Range Interpretation Description Data Sup porting Code Source(s) Document(s ) Leukocytes 9.5 Normal (applies MEDGEN (St [#/volume] in x10E3/uL to non-numeric Juan C's Blood by results) [facility], ) Automated count Hemoglobin 10.9 Below low normal MEDGEN (St [Mass/volume] in g/dL Juan C's Blood [facility], ) Erythrocytes 3.28 Below low normal MEDGEN (St [#/volume] in x10E6/uL Juan C's Blood by [facility], ) Automated count Hematocrit 32.1 % Below low normal MEDGEN (St [Volume Juan C's Fraction] of [facility]) Blood by Automated count MCV 98 fL Above high normal MEDGEN ([facility]) MCH 33.2 pg Above high normal MEDGEN ([facility]) RDW 17.3 % Above high normal MEDGEN ([facility]) MCHC 34.0 Normal (applies MEDGEN (St g/dL to non-numeric Juan C's results) [facility]) Platelets 240 Normal (applies MEDGEN (St [#/area] in x10E3/uL to non-numeric Juan C's Blood by results) [facility]) Microscopy high power field Neutrophils [#] 53 % Normal (applies MEDGEN ( St in Body fluid by to non-numeric Juan C's Manual count results) [facility]) Lymphs 19 % Normal (applies MEDGEN (St to non-numeric Juan C's results) [facility]) Monocytes 15 % Normal (applies MEDGEN (St [#/volume] in to non-numeric Juan C's Cord blood results) [facility]) Basos 0 % Normal (applies MEDGEN (St to non-numeric Juan C's results) [facility]) Eos 11 % Normal (applies MEDGEN (St to non-numeric Juan C's results) [facility]) Neutrophils 5.1 Normal (applies MEDGEN (St (Absolute) x10E3/uL to non-numeric Juan C's results) [facility]) Lymphs 1.8 Normal (applies MEDGEN (St (Absolute) x10E3/uL to non-numeric Juan C's results) [facility]) Monocytes(Absolu 1.5 Above high normal MEDGE N (St te) x10E3/uL [facility]) Eos (Absolute) 1.0 Above high normal MEDGEN (St x10E3/uL [facility]) Baso (Absolute) 0.0 Normal (applies MEDGEN ( St x10E3/uL to non-numeric Juan C's results) [facility]) Immature 2 % Normal (applies MEDGEN (St Granulocytes to non-numeric Juan C's results) [facility]) Immature Grans 0.2 Above high normal MEDGEN (St (Abs) x10E3/uL [facility]) Hematology Note: Normal (applies MEDGEN (St Comments: to non-numeric Juan C's results) [facility]) ID Date Data Source [id number] 09/22/2019 12:00:00 AM EST [facility] ([facility], ) Name Value Range Interpretation Code Description Data Lisa rce(s) Supporting Document(s ) ID Date Data Source [id number] 09/22/2019 12:00:00 AM EST MEDGEN (St [facility], ) Name Value Range Interpretation Code Description Data Supporting Source(s) Document(s ) PTH, Intact 14 pg/mL Below low normal MEDGEN ([facility], ) ID Date Data Source [id number] 09/22/2019 12:00:00 AM EST MEDGEN (St [facility], ) Name Value Range Interpretation Code Description Data Supporting Source(s) Document(s ) Ferritin, 329 ng/mL Normal (applies to MEDGEN (St Serum non-numeric Juan C's results) [facility], ) ID Date Data Source [id number] 09/22/2019 12:00:00 AM EST MEDGEN (St [facility], ) Name Value Range Interpretation Description Data Sup porting Code Source(s) Document(s ) Deprecated 4.8 mg/dL Above high normal MEDGEN (St Phosphorus Juan C's [Mass/time] in Medical, ) 24 hour Urine ID Date Data Source [id number] 09/22/2019 12:00:00 AM EST MEDGEN ([facility], ) Name Value Range Interpretation Code Description Data Lisa rce(s) Supporting Document(s ) RAGINI Normal (applies to MEDGEN (St Interpreta non-numeric results) [facility] M edical, tion:U ) ID Date Data Source [id number] 09/22/2019 12:00:00 AM EST [facility] ([facility], ) Name Value Range Interpretation Description Data Sup porting Code Source(s) Document(s ) Vitamin D, 36.2 Normal (applies to MEDGEN (St 25-Hydroxy ng/mL non-numeric Juan C's results) Medical, ) ID Date Data Source [id number] 09/22/2019 12:00:00 AM EST [facility] ([facility], ) Name Value Range Interpretation Code Description Data Supporting Source(s) Document(s ) Albumin, 693.2 Normal (applies to MEDGEN (St Urine ug/mL non-numeric Juan C's results) Medical, ) Alb/Creat 394.1 mg/g Above high normal MEDGEN (St Ratio creat [facility], ) ID Date Data Source [id number] 09/22/2019 12:00:00 AM EST MEDGEN ([facility], ) Name Value Range Interpretation Description Data Sup porting Code Source(s) Document(s ) Free [place] 476.00 Above high normal MEDGEN (St Lt mg/L Juan C's Chains,[facility], ) Free Lambda 44.50 mg/L Above high normal MEDGEN (S t Lt Juan C's Chains,[facility], ) [place]amb[place] 10.70 Above high normal MEDGEN (St a Ratio,U [facility], ) ID Date Data Source [id number] 09/22/2019 12:00:00 AM EST [facility]GEN ([facility], ) Name Value Range Interpretation Description Data Sup porting Code Source(s) Document(s ) Free [place] 38.9 mg/L Above high normal MEDGEN (St Lt Chains,S [facility]'s [facility], ) Free Lambda 133.0 mg/L Above high normal MEDGEN (S t Lt Chains,S [facility], ) [place]amb[place] 0.29 Normal (applies to MEDGEN (S t a Ratio,S non-numeric Juan C's results) [facility], ) ID Date Data Source [id number] 09/22/2019 12:00:00 AM EST [facility]GEN ([facility], ) Name Value Range Interpretation Code Description Data Supporting Source(s) Document(s ) Creatinine 175.9 Normal (applies to MEDGEN (St , Urine mg/dL non-numeric Juan C's results) [facility], ) Protein/Cr 833 mg/g Above high normal MEDGEN (St eat Ratio creat [facility], ) ID Date Data Source [id number] 09/22/2019 12:00:00 AM EST [facility] ([facility], ) Name Value Range Interpretation Description Data Sup porting Code Source(s) Document(s ) Immunofixation Normal (applies MEDGEN (S t Result, Serum to non-numeric Juan C's results) [facility], ) Immunoglobulin G, 3973 Above high normal MEDG EN (St Qn, Serum mg/dL [facility]) Immunoglobulin A, 25 mg/dL Below low normal MEDGE N (St Qn, Serum [facility], ) Immunoglobulin M, 13 mg/dL Below low normal MEDGE N (St Qn, Serum Juan C's [facility]) ID Date Data Source [id number] 09/22/2019 12:00:00 AM EST MEDGEN ([facility]) Name Value Range Interpretation Description Data Sup porting Code Source(s) Document(s ) Iron 297 ug/dL Normal (applies to MEDGEN (St Bind.Cap.(TIBC non-numeric Juan C's ) results) [facility], ) UIBC 222 ug/dL Normal (applies to MEDGEN (St non-numeric Juan C's results) [facility], ) Iron 75 ug/dL Normal (applies to MEDGEN (St [Mass/volume] non-numeric Juan C's in Serum or results) [facility], ) Plasma Iron 25 % Normal (applies to MEDGEN (St saturation non-numeric Juan C's [Mass results) [facility], ) Fraction] in Serum or Plasma ID Date Data Source [id number] 09/22/2019 12:00:00 AM EST MEDGEN ([facility]) Name Value Range Interpretation Description Data Sup porting Code Source(s) Document(s ) Protein,Tot 146.6 Normal (applies to MEDGEN (S t al,Urine mg/dL non-numeric Juan C's results) [facility], ) Albumin, U 47.8 % Normal (applies to MEDGEN (St non-numeric Juan C's results) [facility], ) Alpha-2-Nadine 9.6 % Normal (applies to MEDGEN (S t bulin, U non-numeric Juan C's results) [facility], ) Alpha-1-Nadine 3.5 % Normal (applies to MEDGEN (S t bulin, U non-numeric Juan C's results) [facility], ) Beta 24.4 % Normal (applies to MEDGEN (St Globulin, U non-numeric Juan C's results) [facility], ) Gamma 14.8 % Normal (applies to MEDGEN (St Globulin, U non-numeric Juan C's results) [facility], ) M-Kevyn, % 9.8 % Above high normal MEDGEN ([facility], ) Please Normal (applies to MEDGEN (St note: non-numeric Juan C's results) [facility], ) PDF . Normal (applies to MEDGEN (St non-numeric Juan C's results) Medical, ) ID Date Data Source [id number] 09/22/2019 12:00:00 AM EST MEDGEN ([facility], ) Name Value Range Interpretation Description Data Sup porting Code Source(s) Document(s ) Protein 9.0 g/dL Above high normal MEDGEN (St [Mass/volume] in Juan C's Serum or Plasma Medical, ) Microalbumin 4.0 g/dL Normal (applies MEDGEN (St [Mass/time] in to non-numeric Juan C's Urine collected results) Medical, for unspecified PC) duration Sownf-7-Nweykbpb 0.2 g/dL Normal (applies MEDGEN (St to non-numeric Juan C's results) Medical, ) Idqxp-4-Llogdfbx 0.8 g/dL Normal (applies MEDGEN (St to non-numeric Juan C's results) Medical, ) Beta globulin 0.8 g/dL Normal (applies MEDGEN (St [Mass/volume] in to non-numeric Juan C's Urine by results) Medical, Electrophoresis PC) Gamma globulin 3.2 g/dL Above high normal MEDGEN (St [Mass/volume] by [facility] Electrophoresis in Medical, Urine collected PC) for unspecified duration M-Kevyn 2.9 g/dL Above high normal [facility] ([facility]) Globulin, Total 5.0 g/dL Above high normal [facility] ([facility], ) A/G Ratio 0.8 Normal (applies MEDGEN (St to non-numeric [facility] results) Medical, ) Please note: Normal (applies [facility]GEN (St to non-numeric [facility] results) Medical, ) PDF . Normal (applies MEDGEN (St to non-numeric [facility] results) Medical, ) ID Date Data Source [id number] 09/22/2019 12:00:00 AM EST [facility] ([facility], ) Name Value Range Interpretation Description [...] results) Medical, ) ID Date Data Source [id number] 09/22/2019 12:00:00 AM EST [facility] ([facility] [...] non-numeric [facility] Body fluid by results) [facility], ) Light microscopy Crystal Type Calcium Normal (applies MEDGEN (St Oxalate to non-numeric [facility]'s results) [facility]) Mucus Threads Present Normal (applies MEDGEN (St to non-numeric [facility] results) [facility]) Bacteria Few Normal (applies MEDGEN (St [Presence] in to non-numeric [facility] Prostatic results) [facility], ) fluid by Light microscopy ID Date Data Source [id number] 09/22/2019 12:00:00 AM EST [facility] ([facility], ) Name Value Range Interpretation Description Data Sup porting Code Source(s) Document(s ) Leukocytes 9.5 Normal (applies MEDGEN (St [#/volume] in x10E3/uL to non-numeric [facility] Blood by results) [facility]) Automated count Erythrocytes 3.28 Below low normal MEDGEN (St [#/volume] in x10E6/uL [facility] Blood by [facility], ) Automated count Hemoglobin 10.9 Below low normal MEDGEN (St [Mass/volume] in g/dL [facility] Blood [facility]) Hematocrit 32.1 % Below low normal MEDGEN (St [Volume Juan C's Fraction] of [facility]) Blood by Automated count MCV 98 fL Above high normal MED[facility] ([facility], ) MCH 33.2 pg Above high normal [facility] ([facility]) MCHC 34.0 Normal (applies MEDGEN (St g/dL to non-numeric [facility]'s results) [facility]) RDW 17.3 % Above high normal MEDGEN ([facility], ) Platelets 240 Normal (applies MEDGEN (St [#/area] in x10E3/uL to non-numeric [facility] Blood by results) [facility]) Microscopy high power field Neutrophils [#] 53 % Normal (applies MEDGEN ( St in Body fluid by to non-numeric [facility] Manual count results) [facility]) Lymphs 19 % Normal (applies MEDGEN (St to non-numeric [facility]'s results) [facility]) Monocytes 15 % Normal (applies MEDGEN (St [#/volume] in to non-numeric [facility] Cord blood results) [facility]) Eos 11 % Normal (applies [...] MEDGE N (St te) x10E3/uL [facility], ) Eos (Absolute) 1.0 Above high normal MEDGEN (St x10E3/uL [facility], ) Baso (Absolute) 0.0 Normal (applies MEDGEN ( St x10E3/uL to non-numeric [facility] results) Medical, ) Immature 2 % Normal (applies MEDGEN (St Granulocytes to non-numeric [facility] results) Medical, ) Immature Grans 0.2 Above high normal MEDGEN (St (Abs) x10E3/uL [facility], ) Hematology Note: Normal (applies MEDGEN (St Comments: to non-numeric [facility] results) Medical, ) ID Date Data Source [id number] 09/22/2019 12:00:00 AM EST MEDGEN ([facility], ) Name Value Range Interpretation Code Description Data Lisa rce(s) Supporting Document(s ) ID Date Data Source [id number] 09/22/2019 12:00:00 AM EST MED[facility] ([facility], ) Name Value Range Interpretation Code Description Data Supporting Source(s) Document(s ) PTH, Intact 14 pg/mL Below low normal [facility] ([facility], ) ID Date Data Source [id number] 09/22/2019 12:00:00 AM EST [facility] ([facility], ) Name Value Range Interpretation Code Description Data Supporting Source(s) Document(s ) Ferritin, 329 ng/mL Normal (applies to MEDGEN (St Serum non-numeric [facility]'s results) Medical, ) ID Date Data Source [id number] 09/22/2019 12:00:00 AM EST [facility] ([facility], ) Name Value Range Interpretation Description Data Sup porting Code Source(s) Document(s ) Deprecated 4.8 mg/dL Above high normal MEDGEN (St Phosphorus [facility] [Mass/time] in [facility], ) 24 hour Urine ID Date Data Source [id number] 09/22/2019 12:00:00 AM EST [facility] ([facility], ) Name Value Range Interpretation Code Description Data Lisa rce(s) Supporting Document(s ) RAGINI Normal (applies to MEDGEN (St Interpreta non-numeric results) [facility] M edical, tion:U ) ID Date Data Source [id number] 09/22/2019 12:00:00 AM EST [facility] ([facility], ) Name Value Range Interpretation Description Data Sup porting Code Source(s) Document(s ) Vitamin D, 36.2 Normal (applies to MEDGEN (St 25-Hydroxy ng/mL non-numeric [facility] results) [facility], ) ID Date Data Source [id number] 09/22/2019 12:00:00 AM EST [facility] ([facility], ) Name Value Range Interpretation Code Description Data Supporting Source(s) Document(s ) Albumin, 693.2 Normal (applies to MEDGEN (St Urine ug/mL non-numeric [facility] results) [facility], ) Alb/Creat 394.1 mg/g Above high normal MEDGEN (St Ratio creat [facility], ) ID Date Data Source [id number] 09/22/2019 12:00:00 AM EST [facility] ([facility], ) Name Value Range Interpretation Description Data Sup porting Code Source(s) Document(s ) Free [place] 476.00 Above high normal MEDGEN (St Lt mg/L [facility], ) Free Lambda 44.50 mg/L Above high normal MEDGEN (S t Lt [facility], ) [place] 10.70 Above high normal MEDGEN (St a Ratio,U [facility], ) ID Date Data Source [id number] 09/22/2019 12:00:00 AM EST [facility] ([facility], ) Name Value Range Interpretation Description Data Sup porting Code Source(s) Document(s ) Free [place] 38.9 mg/L Above high normal MEDGEN (St Lt Chains,S [facility], ) Free Lambda 133.0 mg/L Above high normal MEDGEN (S t Lt Chains,S [facility], ) [place] 0.29 Normal (applies to MEDGEN (S t a Ratio,S non-numeric Juan C's results) [facility]) ID Date Data Source [id number] 09/22/2019 12:00:00 AM EST MEDGEN (St [facility], ) Name Value Range Interpretation Code Description Data Supporting Source(s) Document(s ) Creatinine 175.9 Normal (applies to MEDGEN (St , Urine mg/dL non-numeric Juan C's results) [facility]) Protein/Cr 833 mg/g Above high normal MEDGEN (St eat Ratio creat [facility]) ID Date Data Source [id number] 09/22/2019 12:00:00 AM EST MEDGEN ([facility], ) Name Value Range Interpretation Description Data Sup porting Code Source(s) Document(s ) Immunofixation Normal (applies MEDGEN (S t Result, Serum to non-numeric [facility] C's results) [facility]) Immunoglobulin G, 3973 Above high normal MEDG EN (St Qn, Serum mg/dL [facility]) Immunoglobulin A, 25 mg/dL Below low normal MEDGE N (St Qn, Serum [facility]) Immunoglobulin M, 13 mg/dL Below low normal MEDGE N (St Qn, Serum [facility]) ID Date Data Source [id number] 09/22/2019 12:00:00 AM EST MEDGEN ([facility], ) Name Value Range Interpretation Description Data Sup porting Code Source(s) Document(s ) Iron 297 ug/dL Normal (applies to MEDGEN (St Bind.Cap.(TIBC non-numeric Juan C's ) results) [facility]) UIBC 222 ug/dL Normal (applies to MEDGEN (St non-numeric Juan C's results) [facility]) Iron 75 ug/dL Normal (applies to MEDGEN (St [Mass/volume] non-numeric Juan C's in Serum or results) [facility]) Plasma Iron 25 % Normal (applies to MEDGEN (St saturation non-numeric Juan C's [Mass results) [facility]) Fraction] in Serum or Plasma ID Date Data Source [id number] 09/22/2019 12:00:00 AM EST [facility] ([facility], ) Name Value Range Interpretation Description Data Sup porting Code Source(s) Document(s ) Protein,Tot 146.6 Normal (applies to MEDGEN (S t al,Urine mg/dL non-numeric [facility] results) Medical, ) Albumin, U 47.8 % Normal (applies to MEDGEN (St non-numeric [facility]'s results) Medical, ) Alpha-1-Nadine 3.5 % Normal (applies to MEDGEN (S t bulin, U non-numeric [facility]'s results) Medical, ) Alpha-2-Nadine 9.6 % Normal (applies to MEDGEN (S t bulin, U non-numeric [facility] results) Medical, ) Beta 24.4 % Normal (applies to MEDGEN (St Globulin, U non-numeric [facility] results) Medical, ) Gamma 14.8 % Normal (applies to MEDGEN (St Globulin, U non-numeric [facility] results) Medical, ) M-Kevyn, % 9.8 % Above high normal MEDGEN ([facility], ) Please Normal (applies to MEDGEN (St note: non-numeric [facility]'s results) Medical, ) PDF . Normal (applies to MEDGEN (St non-numeric [facility] C's results) [facility], ) ID Date Data Source [id number] 09/22/2019 12:00:00 AM EST [facility]GEN ([facility], ) Name Value Range Interpretation Description Data Sup porting Code Source(s) Document(s ) Protein 9.0 g/dL Above high normal MEDGEN (St [Mass/volume] in [facility] Serum or Plasma Medical, ) Microalbumin 4.0 g/dL Normal (applies MEDGEN (St [Mass/time] in to non-numeric [facility]'s Urine collected results) Medical, for unspecified PC) duration Wrahh-1-Atrqejkf 0.2 g/dL Normal (applies MEDGEN (St to non-numeric [facility]'s results) Medical, ) Njobc-4-Nzamdbah 0.8 g/dL Normal (applies MEDGEN (St to non-numeric [facility]'s results) Medical, ) Beta globulin 0.8 g/dL Normal (applies MEDGEN (St [Mass/volume] in to non-numeric [facility]'s Urine by results) Medical, Electrophoresis PC) Gamma globulin 3.2 g/dL Above high normal MEDGEN (St [Mass/volume] by [facility] Electrophoresis in [facility], Urine collected PC) for unspecified duration M-Kevyn 2.9 g/dL Above high normal [facility] ([facility]) Globulin, Total 5.0 g/dL Above high normal [facility] ([facility], ) A/G Ratio 0.8 Normal (applies MEDGEN (St to non-numeric Juan C's results) Medical, PC) Please note: Normal (applies MEDGEN (St to non-numeric Juan C's results) Medical, ) PDF . Normal (applies MEDGEN (St to non-numeric [facility] C's results) Medical, ) ID Date Data Source [id number] 09/22/2019 12:00:00 AM EST [facility]GEN ([facility] [...] (S t to non-numeric Juan C's results) [facility], ) Microscopic See below: Normal (applies MEDGEN (St Examination to non-numeric Juan C's results) [facility], ) ID Date Data Source [id number] 09/22/2019 12:00:00 AM EST [facility]GEN ([facility], ) Name Value Range Interpretation Description Data Sup porting Code Source(s) Document(s ) WBC 0-5 Normal (applies MEDGEN (St to non-numeric [facility]'s results) Medical, ) RBC 0-2 Normal (applies MEDGEN (St to non-numeric Juan C's results) [facility], ) Epithelial None seen Normal (applies MEDGEN (St Cells (non to non-numeric Juan C's renal) results) [facility], ) Casts Present Abnormal (applies MEDGEN (St [#/area] in to non-numeric [facility] C's Urine results) [facility], ) sediment by Automated count Cast Type Granular Abnormal (applies MEDGEN (St casts to non-numeric Juan C's results) [facility], ) Crystals Present Abnormal (applies MEDGEN (St [#/area] in to non-numeric Juan C's Body fluid by results) [facility], ) Light microscopy Crystal Type Calcium Normal (applies MEDGEN (St Oxalate to non-numeric Juan C's results) [facility], ) Mucus Threads Present Normal (applies MEDGEN (St to non-numeric Juan C's results) [facility], ) Bacteria Few Normal (applies MEDGEN (St [Presence] in to non-numeric Juan C's Prostatic results) [facility], ) fluid by Light microscopy ID Date Data Source [id number] 09/22/2019 12:00:00 AM EST [facility]GEN ([facility], ) Name Value Range Interpretation Description Data Sup porting Code Source(s) Document(s ) Leukocytes 9.5 Normal (applies MEDGEN (St [#/volume] in x10E3/uL to non-numeric Juan C's Blood by results) [facility], ) Automated count Erythrocytes 3.28 Below low normal MEDGEN (St [#/volume] in x10E6/uL [facility] Blood by Medical, ) Automated count Hemoglobin 10.9 Below low normal MEDGEN (St [Mass/volume] in g/dL Juan C's Blood [facility]) Hematocrit 32.1 % Below low normal MEDGEN (St [Volume Juan C's Fraction] of [facility]) Blood by Automated count MCV 98 fL Above high normal MEDGEN ([facility], ) MCH 33.2 pg Above high normal MEDGEN ([facility]) MCHC 34.0 Normal (applies MEDGEN (St g/dL to non-numeric Juan C's results) [facility]) RDW 17.3 % Above high normal MEDGEN ([facility], ) Platelets 240 Normal (applies MEDGEN (St [#/area] in x10E3/uL to non-numeric Juan C's Blood by results) [facility]) Microscopy high power field Neutrophils [#] 53 % Normal (applies MEDGEN ( St in Body fluid by to non-numeric Juan C's Manual count results) [facility]) Lymphs 19 % Normal (applies MEDGEN (St to non-numeric Juan C's results) [facility]) Monocytes 15 % Normal (applies MEDGEN (St [#/volume] in to non-numeric Juan C's Cord blood results) [facility]) Eos 11 % Normal (applies MEDGEN (St to non-numeric Juan C's results) [facility]) Basos 0 % Normal (applies MEDGEN (St to non-numeric Juan C's results) [facility]) Neutrophils 5.1 Normal (applies MEDGEN (St (Absolute) x10E3/uL to non-numeric Juan C's results) [facility]) Lymphs 1.8 Normal (applies MEDGEN (St (Absolute) x10E3/uL to non-numeric Juan C's results) [facility]) Monocytes(Absolu 1.5 Above high normal MEDGE N (St te) x10E3/uL [facility]'s [facility]) Eos (Absolute) 1.0 Above high normal MEDGEN (St x10E3/uL [facility]'s [facility]) Baso (Absolute) 0.0 Normal (applies MEDGEN ( St x10E3/uL to non-numeric Juan C's results) [facility]) Immature 2 % Normal (applies MEDGEN (St Granulocytes to non-numeric Juan C's results) [facility]) Immature Grans 0.2 Above high normal MEDGEN (St (Abs) x10E3/uL [facility], ) Hematology Note: Normal (applies MEDGEN (St Comments: to non-numeric Juan C's results) Medical, ) ID Date Data Source [id number] 09/22/2019 12:00:00 AM EST MEDGEN ([facility], ) Name Value Range Interpretation Code Description Data Lisa rce(s) Supporting Document(s ) ID Date Data Source [id number] 09/22/2019 12:00:00 AM EST [facility] ([facility], ) Name Value Range Interpretation Code Description Data Supporting Source(s) Document(s ) PTH, Intact 10 pg/mL Below low normal MEDGEN ([facility], ) PTH, Intact 14 pg/mL Below low normal MEDGEN ([facility], ) ID Date Data Source [id number] 09/22/2019 12:00:00 AM EST MEDGEN ([facility], ) Name Value Range Interpretation Code Description Data Supporting Source(s) Document(s ) Ferritin, 349 ng/mL Normal (applies to MEDGEN (St Serum non-numeric [facility] C's results) Medical, ) Ferritin, 329 ng/mL Normal (applies to MEDGEN (St Serum non-numeric [facility]'s results) Medical, ) ID Date Data Source [id number] 09/22/2019 12:00:00 AM EST [facility] ([facility], ) Name Value Range Interpretation Description Data Sup porting Code Source(s) Document(s ) Deprecated 5.4 mg/dL Above high normal MEDGEN (St Phosphorus Juan C's [Mass/time] in Medical, ) 24 hour Urine Deprecated 4.8 mg/dL Above high normal MEDGEN (St Phosphorus [facility] C's [Mass/time] in Medical, ) 24 hour Urine ID Date Data Source [id number] 09/22/2019 12:00:00 AM EST [facility]GEN ([facility], ) Name Value Range Interpretation Code Description Data Lisa rce(s) Supporting Document(s ) ID Date Data Source [id number] 09/22/2019 12:00:00 AM EST [facility]GEN ([facility], ) Name Value Range Interpretation Description Data Sup porting Code Source(s) Document(s ) Vitamin D, 30.6 Normal (applies to MEDGEN (St 25-Hydroxy ng/mL non-numeric Juan C's results) [facility], ) Vitamin D, 42.8 Normal (applies to MEDGEN (St 25-Hydroxy ng/mL non-numeric [facility] C's results) Medical, ) Vitamin D, 36.2 Normal (applies to MEDGEN (St 25-Hydroxy ng/mL non-numeric [facility] C's results) [facility], ) ID Date Data Source [id number] 09/22/2019 12:00:00 AM EST MEDGEN ([facility], ) Name Value Range Interpretation Code Description Data Supporting Source(s) Document(s ) Albumin, 693.2 Normal (applies to MEDGEN (St Urine ug/mL non-numeric Juan C's results) [facility], ) Alb/Creat 394.1 mg/g Above high normal MEDGEN (St Ratio creat [facility], ) ID Date Data Source [id number] 09/22/2019 12:00:00 AM EST MEDGEN ([facility], ) Name Value Range Interpretation Description Data Sup porting Code Source(s) Document(s ) Free [place] 141.85 Above high normal MEDGEN (St Lt mg/L [facility], ) [place]amb[place] 1.28 Normal (applies to MEDGEN (S t a Ratio,U non-numeric Juan C's results) [facility], ) Free Lambda 110.44 Above high normal MEDGEN (St Lt mg/L [facility], ) Free [place] 476.00 Above high normal MEDGEN (St Lt mg/L [facility], ) [place] 10.70 Above high normal MEDGEN (St a Ratio,U [facility], ) Free Lambda 44.50 mg/L Above high normal MEDGEN (S t Lt [facility], ) ID Date Data Source [id number] 09/22/2019 12:00:00 AM EST MEDGEN ([facility], ) Name Value Range Interpretation Description Data Sup porting Code Source(s) Document(s ) Free [place] 41.1 mg/L Above high normal MEDGEN (St Lt Chains,S [facility], ) Free [place] 176.0 mg/L Above high normal MEDGEN (S t Lt Chains,S [facility], ) [place] 0.23 Below low normal MEDGEN (St a Ratio,S [facility], ) Free [place] 38.9 mg/L Above high normal MEDGEN (St Lt Chains,S [facility], ) Free [place] 133.0 mg/L Above high normal MEDGEN (S t Lt Chains,S [facility], ) [place] 0.29 Normal (applies to MEDGEN (S t a Ratio,S non-numeric Juan C's results) [facility], ) ID Date Data Source [id number] 09/22/2019 12:00:00 AM EST MEDGEN ([facility], ) Name Value Range Interpretation Code Description Data Supporting Source(s) Document(s ) Creatinine 94.7 mg/dL Normal (applies to MEDGEN (S t , Urine non-numeric Juan C's results) [facility]) Protein/Cr 1072 mg/g Above high normal MEDGEN (St eat Ratio creat [facility], ) Creatinine 175.9 Normal (applies to MEDGEN (St , Urine mg/dL non-numeric Juan C's results) [facility]) Protein/Cr 833 mg/g Above high normal [facility] ([facility] ID Date Data Source [id number] 09/22/2019 12:00:00 AM EST [facility] ([facility], ) Name Value Range Interpretation Description Data Sup porting Code Source(s) Document(s ) Immunoglobulin G, 3867 Above high normal MEDG EN (St Qn, Serum mg/dL [facility]) Immunoglobulin A, 17 mg/dL Below low normal MEDGE N (St Qn, Serum [facility]) Immunoglobulin M, 8 mg/dL Below low normal MEDGE N (St Qn, Serum [facility]) Immunoglobulin G, 3973 Above high normal MEDG EN (St Qn, Serum mg/dL [facility]) Immunoglobulin M, 13 mg/dL Below low normal MEDGE N (St Qn, Serum [facility], ) Immunoglobulin A, 25 mg/dL Below low normal MEDGE N (St Qn, Serum [facility], ) ID Date Data Source [id number] 09/22/2019 12:00:00 AM EST [facility] ([facility], ) Name Value Range Interpretation Description Data Sup porting Code Source(s) Document(s ) Iron 248 ug/dL Below low normal MEDGEN (St Bind.Cap.(TIBC Juan C's ) Medical, ) UIBC 172 ug/dL Normal (applies to MEDGEN (St non-numeric Juan C's results) Medical, ) Iron 76 ug/dL Normal (applies to MEDGEN (St [Mass/volume] non-numeric Juan C's in Serum or results) Medical, ) Plasma Iron 31 % Normal (applies [...] in Serum or results) Medical, ) Plasma Iron 25 % Normal (applies to MEDGEN (St saturation non-numeric Juan C's [Mass results) Medical, ) Fraction] in Serum or Plasma ID Date Data Source [id number] 09/22/2019 12:00:00 AM EST MEDGEN ([facility], ) Name Value Range Interpretation Code [...] (St obulin, U non-numeric Juan C's results) [facility], ) Beta 29.7 % Normal (applies to MEDGEN (St Globulin, non-numeric Juan C's U results) [facility], ) Gamma 15.6 % Normal (applies to MEDGEN (St Globulin, non-numeric Juan C's U results) [facility], ) M-Kevyn, % Comment: Normal (applies [...] results) Medical, ) ID Date Data Source [id number] 09/22/2019 12:00:00 AM EST [facility] ([facility], ) Name Value Range Interpretation Description Data Sup porting Code Source(s) Document(s ) Microalbumin 4.0 g/dL Normal (applies MEDGEN (St [Mass/time] in to non-numeric [facility]'s Urine collected results) Medical, for unspecified PC) duration Uujwu-9-Frehcigb 0.2 g/dL Normal (applies MEDGEN (St to non-numeric Juan C's results) Medical, ) Xgycw-4-Tjvkzjfr 0.8 g/dL Normal (applies MEDGEN (St to non-numeric Juan C's results) Medical, ) Beta globulin 0.7 g/dL Normal (applies MEDGEN (St [Mass/volume] in to non-numeric [facility] C's Urine by results) Medical, Electrophoresis PC) Gamma globulin 3.5 g/dL Above high normal MEDGEN (St [Mass/volume] by [facility] C's Electrophoresis in Medical, Urine collected PC) for unspecified duration M-Kevyn 3.2 g/dL Above high normal MEDGEN ([facility], ) Globulin, Total 5.1 g/dL Above high normal MEDGEN ([facility], ) A/G Ratio 0.8 Normal (applies MEDGEN (St to non-numeric Juan C's results) [facility], ) PDF . Normal (applies MEDGEN (St to non-numeric Juan C's results) [facility], ) Protein 9.0 g/dL Above high normal MEDGEN (St [Mass/volume] in Juan C's Serum or Plasma [facility], ) Microalbumin 4.0 g/dL Normal (applies MEDGEN (St [Mass/time] in to non-numeric Juan C's Urine collected results) [facility], for unspecified PC) duration Jxwjo-0-Oyzceahl 0.2 g/dL Normal (applies MEDGEN (St to non-numeric Juan C's results) [facility], ) Pvqyn-9-Dqsditbf 0.8 g/dL Normal (applies MEDGEN (St to non-numeric Juan C's results) [facility], ) Beta globulin 0.8 g/dL Normal (applies MEDGEN (St [Mass/volume] in to non-numeric Juan C's Urine by results) Medical, Electrophoresis ) Gamma globulin 3.2 g/dL Above high normal MEDGEN (St [Mass/volume] by [facility]'s Electrophoresis in [facility], Urine collected ) for unspecified duration M-Kevyn 2.9 g/dL Above high normal MEDGEN ([facility], ) Globulin, Total 5.0 g/dL Above high normal MEDGEN ([facility], ) A/G Ratio 0.8 Normal (applies MEDGEN (St to non-numeric Juan C's results) [facility], ) PDF . Normal (applies MEDGEN (St to non-numeric Juan C's results) [facility], ) ID Date Data Source [id number] 09/22/2019 12:00:00 AM EST MEDGEN (St [facility], ) Name Value Range Interpretation Description [...] results) Medical, ) ID Date Data Source [id number] 09/22/2019 12:00:00 AM EST MEDGEN ([facility] [...] results) Medical, ) fluid by Light microscopy RBC 0-2 Normal (applies [facility] (St to non-numeric [facility] results) Medical, ) Epithelial None seen Normal (applies [facility] (St Cells (non to non-numeric [facility] renal) results) Medical, ) Casts Present Abnormal (applies [facility] (St [#/area] in to non-numeric [facility] Urine results) [facility], ) sediment by Automated count Cast Type Granular Abnormal (applies [facility] (St casts to non-numeric [facility] results) [facility], ) Crystals Present Abnormal (applies [facility] (St [#/area] in to non-numeric [facility] Body fluid by results) [facility], ) Light microscopy Crystal Type Calcium Normal (applies [facility] (St Oxalate to non-numeric [facility]'s results) [facility], ) Mucus Threads Present Normal (applies [facility] (St to non-numeric [facility] results) [facility], ) Bacteria Few Normal (applies [facility] (St [Presence] in to non-numeric [facility] Prostatic results) [facility], ) fluid by Light microscopy ID Date Data Source [id number] 09/22/2019 12:00:00 AM EST [facility] ([facility], ) Name Value Range Interpretation Description Data Sup porting Code Source(s) Document(s ) Leukocytes 11.7 Above high normal [facility] (St [#/volume] in x10E3/uL [facility] Blood by [facility], ) Automated count Erythrocytes 2.47 Below lower panic MEDGEN (S t [#/volume] in x10E6/uL limits [facility] Blood by [facility], ) Automated count Hemoglobin 8.2 g/dL Below low normal [facility] (St [Mass/volume] in [facility] Blood [facility], ) Hematocrit 23.3 % Below low normal [facility] (St [Volume Juan C's Fraction] of [facility], ) Blood by Automated count MCV 94 fL Normal (applies [facility] (St to non-numeric [facility] results) [facility], ) MCH 33.2 pg Above high normal [facility] ([facility], ) MCHC 35.2 Normal (applies [facility] (St g/dL to non-numeric [facility] results) [facility]) RDW 19.0 % Above high normal [facility] ([facility], ) Platelets 198 Normal (applies [facility] (St [#/area] in x10E3/uL to non-numeric [facility] Blood by results) [facility], ) Microscopy high power field Neutrophils [#] 54 % Normal (applies [facility] ( St in Body fluid by to non-numeric [facility] Manual count results) [facility], ) Lymphs 13 % Normal (applies [facility] (St to non-numeric [facility] results) [facility], ) Monocytes 16 % Normal (applies [facility] (St [#/volume] in to non-numeric [facility]'s Cord blood results) [facility], ) Eos 11 % Normal (applies [facility] (St to non-numeric [facility] results) [facility], ) Neutrophils 6.4 Normal (applies [facility] (St (Absolute) x10E3/uL to non-numeric [facility] results) [facility], ) Basos 1 % Normal (applies [facility] (St to non-numeric [facility] results) [facility], ) Lymphs 1.5 Normal (applies [facility] (St (Absolute) x10E3/uL to non-numeric [facility] results) [facility], ) Eos (Absolute) 1.3 Above high normal [facility] (St x10E3/uL [facility], ) Monocytes(Absolu 1.9 Above high normal MEDGE N (St te) x10E3/uL [facility], ) Baso (Absolute) 0.1 Normal (applies [facility] ( St x10E3/uL to non-numeric [facility] results) [facility], ) Immature 5 % Normal (applies [facility] (St Granulocytes to non-numeric [facility] results) [facility]) Immature Grans 0.6 Above high normal [facility] (St (Abs) x10E3/uL [facility], ) NRBC 4 % Above high normal [facility] ([facility], ) Leukocytes 11.8 Above high normal [facility] (St [#/volume] in x10E3/uL [facility] Blood by [facility], ) Automated count Erythrocytes 3.28 Below low normal [facility] (St [#/volume] in x10E6/uL [facility] Blood by [facility], ) Automated count Hemoglobin 10.8 Below low normal [facility] (St [Mass/volume] in g/dL [facility] Blood [facility], ) Hematocrit 31.7 % Below low normal [facility] (St [Volume Juan [facility]'s Fraction] of [facility], ) Blood by Automated count MCV 97 fL Normal (applies [facility] (St to non-numeric [facility] results) [facility], ) MCHC 34.1 Normal (applies [facility] (St g/dL to non-numeric [facility] results) [facility], ) MCH 32.9 pg Normal (applies [facility] (St to non-numeric [facility] results) [facility], ) RDW 17.5 % Above high normal [facility] ([facility], ) Neutrophils [#] 53 % Normal (applies [facility] ( St in Body fluid by to non-numeric [facility] Manual count results) [facility], ) Platelets 237 Normal (applies [facility] (St [#/area] in x10E3/uL to non-numeric [facility] Blood by results) [facility], ) Microscopy high power field Lymphs 20 % Normal (applies [facility] (St to non-numeric [facility] results) [facility], ) Monocytes 13 % Normal (applies [facility] (St [#/volume] in to non-numeric [facility] Cord blood results) [facility], ) Basos 1 % Normal (applies [facility] (St to non-numeric [facility] results) [facility], ) Eos 12 % Normal (applies [facility] (St to non-numeric [facility] results) [facility], ) Neutrophils 6.2 Normal (applies [facility] (St (Absolute) x10E3/uL to non-numeric [facility] results) [facility], ) Lymphs 2.4 Normal (applies [facility] (St (Absolute) x10E3/uL to non-numeric [facility] results) [facility], ) Monocytes(Absolu 1.5 Above high normal MEDGE N (St te) x10E3/uL [facility], ) Eos (Absolute) 1.5 Above high normal [facility] (St x10E3/uL [facility], ) Baso (Absolute) 0.1 Normal (applies [facility] ( St x10E3/uL to non-numeric [facility] results) [facility], ) Immature 1 % Normal (applies [facility] (St Granulocytes to non-numeric [facility] results) [facility], ) Immature Grans 0.2 Above high normal [facility] (St (Abs) x10E3/uL [facility], ) Hematology Note: Normal (applies [facility] (St Comments: to non-numeric [facility] results) [facility], ) Leukocytes 9.5 Normal (applies [facility] (St [#/volume] in x10E3/uL to non-numeric [facility] Blood by results) [facility], ) Automated count Erythrocytes 3.28 Below low normal [facility] (St [#/volume] in x10E6/uL [facility] Blood by [facility]) Automated count Hemoglobin 10.9 Below low normal [facility] (St [Mass/volume] in g/dL [facility] Blood [facility]) Hematocrit 32.1 % Below low normal [facility] (St [Volume Juan C's Fraction] of [facility]) Blood by Automated count MCV 98 fL Above high normal [facility] ([facility], ) MCHC 34.0 Normal (applies [facility] (St g/dL to non-numeric [facility] results) [facility]) MCH 33.2 pg Above high normal [facility] ([facility], ) RDW 17.3 % Above high normal [facility] ([facility], ) Platelets 240 Normal (applies [facility] (St [#/area] in x10E3/uL to non-numeric [facility] Blood by results) [facility]) Microscopy high power field Neutrophils [#] 53 % Normal (applies [facility] ( St in Body fluid by to non-numeric [facility] Manual count results) [facility]) Lymphs 19 % Normal (applies [facility] (St to non-numeric [facility] results) [facility]) Eos 11 % Normal (applies [facility] (St to non-numeric [facility] results) [facility]) Monocytes 15 % Normal (applies [facility] (St [#/volume] in to non-numeric [facility] Cord blood results) [facility]) Basos 0 % Normal (applies [facility] (St to non-numeric [facility] results) [facility]) Lymphs 1.8 Normal (applies [facility] (St (Absolute) x10E3/uL to non-numeric [facility] results) [facility]) Neutrophils 5.1 Normal (applies [facility] (St (Absolute) x10E3/uL to non-numeric [facility] results) [facility]) Monocytes(Absolu 1.5 Above high normal MEDGE N (St te) x10E3/uL [facility]) Eos (Absolute) 1.0 Above high normal [facility] (St x10E3/uL [facility]) Baso (Absolute) 0.0 Normal (applies [facility] ( St x10E3/uL to non-numeric [facility] results) [facility]) Immature 2 % Normal (applies [facility] (St Granulocytes to non-numeric [facility] results) [facility]) Hematology Note: Normal (applies [facility] (St Comments: to non-numeric [facility] results) [facility], ) Immature Grans 0.2 Above high normal [facility] (St (Abs) x10E3/uL [facility], ) ID Date Data Source [id number] 09/22/2019 12:00:00 AM EST [facility] ([facility], ) Name Value Range Interpretation Code Description Data Lisa rce(s) Supporting Document(s ) ID Date Data Source [id number] 09/22/2019 12:00:00 AM EST [facility] ([facility], ) Name Value Range Interpretation Code Description Data Supporting Source(s) Document(s ) PTH, Intact 14 pg/mL Below low normal [facility] ([facility], ) ID Date Data Source [id number] 09/22/2019 12:00:00 AM EST [facility] ([facility], ) Name Value Range Interpretation Code Description Data Supporting Source(s) Document(s ) Ferritin, 329 ng/mL Normal (applies to [facility] (St Serum non-numeric [facility] results) [facility], ) ID Date Data Source [id number] 09/22/2019 12:00:00 AM EST [facility] ([facility], ) Name Value Range Interpretation Description Data Sup porting Code Source(s) Document(s ) Deprecated 4.8 mg/dL Above high normal [facility] (St Phosphorus [facility] [Mass/time] in Medical, ) 24 hour Urine ID Date Data Source [id number] 09/22/2019 12:00:00 AM EST [facility] ([facility], ) Name Value Range Interpretation Code Description Data Lisa rce(s) Supporting Document(s ) ID Date Data Source [id number] 09/22/2019 12:00:00 AM EST [facility] ([facility], ) Name Value Range Interpretation Description Data Sup porting Code Source(s) Document(s ) Vitamin D, 42.8 Normal (applies to [facility] (St 25-Hydroxy ng/mL non-numeric [facility] results) [facility], ) Vitamin D, 36.2 Normal (applies to [facility] (St 25-Hydroxy ng/mL non-numeric [facility] results) [facility], ) ID Date Data Source [id number] 09/22/2019 12:00:00 AM EST [facility] ([facility] Name Value Range Interpretation Code Description Data Supporting Source(s) Document(s ) Albumin, 693.2 Normal (applies to [facility] (St Urine ug/mL non-numeric [facility] results) [facility], ) Alb/Creat 394.1 mg/g Above high normal [facility] (St Ratio creat [facility]) ID Date Data Source [id number] 09/22/2019 12:00:00 AM EST [facility] ([facility] Name Value Range Interpretation Description Data Sup porting Code Source(s) Document(s ) Free [place] 476.00 Above high normal [facility] (St Lt mg/L [facility]) Free [place] 44.50 mg/L Above high normal [facility] (S t Lt [facility]) [place] 10.70 Above high normal [facility] (St a Ratio,U [facility]) ID Date Data Source [id number] 09/22/2019 12:00:00 AM EST [facility] ([facility] Name Value Range Interpretation Description Data Sup porting Code Source(s) Document(s ) Free [place] 38.9 mg/L Above high normal [facility] (St Lt Chains,S [facility]) Free [place]ambda 133.0 mg/L Above high normal [facility] (S t Lt Chains,S [facility]) [place] 0.29 Normal (applies to [facility] (S t a Ratio,S non-numeric [facility] results) Medical, ) ID Date Data Source [id number] 09/22/2019 12:00:00 AM EST [facility] ([facility] Name Value Range Interpretation Code Description Data Supporting Source(s) Document(s ) Creatinine 175.9 Normal (applies to [facility]GEN (St , Urine mg/dL non-numeric [facility] results) Medical, ) Protein/Cr 833 mg/g Above high normal [facility] (St eat Ratio creat [facility]) ID Date Data Source [id number] 09/22/2019 12:00:00 AM EST [facility] Name Value Range Interpretation Description Data Sup porting Code Source(s) Document(s ) Immunoglobulin G, 3973 Above high normal MEDG EN (St Qn, Serum mg/dL [facility]) Immunoglobulin M, 13 mg/dL Below low normal MEDGE N (St Qn, Serum [facility]) Immunoglobulin A, 25 mg/dL Below low normal MEDGE N (St Qn, Serum [facility], ) ID Date Data Source [id number] 09/22/2019 12:00:00 AM EST [facility] (St [facility]) Name Value Range Interpretation Description Data Sup porting Code Source(s) Document(s ) UIBC 222 ug/dL Normal (applies to [facility] (St non-numeric Juan C's results) [facility]) Iron 297 ug/dL Normal (applies to [facility] (St Bind.Cap.(TIBC non-numeric Juan C's ) results) [facility]) Iron 25 % Normal (applies to [facility] (St saturation non-numeric [facility]'s [Mass results) [facility]) Fraction] in Serum or Plasma Iron 75 ug/dL Normal (applies to [facility] (St [Mass/volume] non-numeric Juan C's in Serum or results) [facility], ) Plasma ID Date Data Source [id number] 09/22/2019 12:00:00 AM EST [facility] ([facility]) Name Value Range Interpretation Code Description Data Supporting Source(s) Document(s ) Protein,To 146.6 Normal (applies to [facility] (St ruth,Urine mg/dL non-numeric [facility]'s results) [facility], ) Albumin, U 47.8 % Normal (applies to [facility] (St non-numeric [facility]'s results) [facility]) Alpha-1-Gl 3.5 % Normal (applies to [facility] (St obulin, U non-numeric [facility]'s results) [facility]) Beta 24.4 % Normal (applies to [facility] (St Globulin, non-numeric [facility]'s U results) [facility]) Alpha-2-Gl 9.6 % Normal (applies to [facility] (St obulin, U non-numeric [facility]'s results) [facility]) Gamma 14.8 % Normal (applies to [facility] (St Globulin, non-numeric [facility]'s U results) [facility]) M-Kevyn, % 9.8 % Above high normal [facility] ([facility], ) PDF . Normal (applies to [facility] (St non-numeric [facility] results) [facility], ) ID Date Data Source [id number] 09/22/2019 12:00:00 AM EST [facility] ([facility], ) Name Value Range Interpretation Description Data Sup porting Code Source(s) Document(s ) Protein 9.0 g/dL Above high normal [facility] (St [Mass/volume] in [facility]'s Serum or Plasma Medical, ) Microalbumin 4.0 g/dL Normal (applies [facility] (St [Mass/time] in to non-numeric [facility] Urine collected results) [facility], for unspecified PC) duration Oatdu-8-Vqgpjfjx 0.8 g/dL Normal (applies [facility] (St to non-numeric [facility]'s results) Medical, ) Yajcx-4-Fesnfixw 0.2 g/dL Normal (applies [facility] (St to non-numeric [facility]'s results) [facility], ) Beta globulin 0.8 g/dL Normal (applies [facility] (St [Mass/volume] in to non-numeric [facility] Urine by results) Medical, Electrophoresis ) Gamma globulin 3.2 g/dL Above high normal [facility]GEN (St [Mass/volume] by Juan C's Electrophoresis in Medical, Urine collected PC) for unspecified duration M-Kevyn 2.9 g/dL Above high normal [facility] ([facility], ) Globulin, Total 5.0 g/dL Above high normal [facility] ([facility], ) PDF . Normal (applies [facility] (St to non-numeric [facility]'s results) [facility], ) A/G Ratio 0.8 Normal (applies [facility] (St to non-numeric [facility]'s results) [facility], ) ID Date Data Source [id number] 09/22/2019 12:00:00 AM EST [facility] ([facility], ) Name Value Range Interpretation Description Data Sup porting Code Source(s) Document(s ) Specific gravity 1.019 Normal (applies [facility] (St of Pericardial to non-numeric Juan C's fluid by results) Medical, Refractometry ) Urine-Color Yellow Normal (applies MEDGEN [...] to non-numeric [facility]'s Urine collected results) [facility], for unspecified PC) duration Protein Abnormal [...] results) Medical, ) ID Date Data Source [id number] 09/22/2019 12:00:00 AM EST [facility] ([facility] [...] results) [facility], ) sediment by Automated count Crystals Present Abnormal (applies [facility] (St [#/area] in to non-numeric [facility] Body fluid by results) [facility], ) Light microscopy Cast Type Granular Abnormal (applies [facility] (St casts to non-numeric [facility]'s results) [facility], ) Mucus Threads Present Normal (applies [facility] (St to non-numeric [facility]'s results) [facility], ) Crystal Type Calcium Normal (applies [facility] (St Oxalate to non-numeric [facility]'s results) [facility], ) Bacteria Few Normal (applies [facility] (St [Presence] in to non-numeric [facility]'s Prostatic results) [facility], ) fluid by Light microscopy ID Date Data Source [id number] 09/22/2019 12:00:00 AM EST [facility] ([facility], ) Name Value Range Interpretation Description Data Sup porting Code Source(s) Document(s ) Erythrocytes 3.28 Below low normal [facility] (St [#/volume] in x10E6/uL [facility] Blood by [facility], ) Automated count Leukocytes 11.8 Above high normal [facility] (St [#/volume] in x10E3/uL [facility] Blood by [facility], ) Automated count Hemoglobin 10.8 Below low normal [facility] (St [Mass/volume] in g/dL [facility] Blood [facility], ) Hematocrit 31.7 % Below low normal [facility] (St [Volume Juan C's Fraction] of [facility], ) Blood by Automated count MCV 97 fL Normal (applies [facility] (St to non-numeric [facility]'s results) [facility], ) MCH 32.9 pg Normal (applies [facility] (St to non-numeric [facility]'s results) [facility], ) RDW 17.5 % Above high normal [facility] ([facility], ) MCHC 34.1 Normal (applies [facility] (St g/dL to non-numeric [facility]'s results) [facility], ) Platelets 237 Normal (applies [facility]GEN (St [#/area] in x10E3/uL to non-numeric [facility] Blood by results) [facility], ) Microscopy high power field Neutrophils [#] 53 % Normal (applies [facility] ( St in Body fluid by to non-numeric [facility]'s Manual count results) [facility], ) Monocytes 13 % Normal (applies [facility] (St [#/volume] in to non-numeric [facility]'s Cord blood results) [facility], ) Lymphs 20 % Normal (applies [facility] (St to non-numeric [facility]'s results) [facility], ) Eos 12 % Normal (applies [facility] (St to non-numeric [facility]'s results) [facility], ) Basos 1 % Normal (applies [facility]GEN (St to non-numeric [facility] C's results) [facility], ) Neutrophils 6.2 Normal (applies [facility]GEN (St (Absolute) x10E3/uL to non-numeric [facility]'s results) [facility], ) Lymphs 2.4 Normal (applies [facility] (St (Absolute) x10E3/uL to non-numeric [facility]'s results) [facility], ) Monocytes(Absolu 1.5 Above high normal MEDGE N (St te) x10E3/uL [facility], ) Eos (Absolute) 1.5 Above high normal [facility] (St x10E3/uL [facility], ) Baso (Absolute) 0.1 Normal (applies [facility]GEN ( St x10E3/uL to non-numeric [facility]'s results) [facility], ) Immature 1 % Normal (applies [facility]GEN (St Granulocytes to non-numeric [facility]'s results) [facility], ) Immature Grans 0.2 Above high normal [facility]GEN (St (Abs) x10E3/uL [facility], ) Hematology Note: Normal (applies MEDGEN (St Comments: to non-numeric [facility] C's results) [facility], ) Erythrocytes 3.28 Below low normal [facility] (St [#/volume] in x10E6/uL [facility] Blood by [facility], ) Automated count Leukocytes 9.5 Normal (applies [facility]GEN (St [#/volume] in x10E3/uL to non-numeric [facility]'s Blood by results) [facility], ) Automated count Hematocrit 32.1 % Below low normal [facility] (St [Volume [facility] C's Fraction] of [facility], ) Blood by Automated count Hemoglobin 10.9 Below low normal [facility] (St [Mass/volume] in g/dL [facility] Blood [facility], ) MCV 98 fL Above high normal [facility] ([facility], ) MCH 33.2 pg Above high normal [facility] ([facility], ) MCHC 34.0 Normal (applies MEDGEN (St g/dL to non-numeric [facility]'s results) [facility], ) RDW 17.3 % Above high normal [facility] ([facility], ) Neutrophils [#] 53 % Normal (applies MEDGEN ( St in Body fluid by to non-numeric [facility]'s Manual count results) [facility], ) Platelets 240 Normal (applies MEDGEN (St [#/area] in x10E3/uL to non-numeric [facility] Blood by results) [facility], ) Microscopy high power field Lymphs 19 % Normal (applies [facility]GEN (St to non-numeric [facility] C's results) [facility]) Monocytes 15 % Normal (applies MEDGEN (St [#/volume] in to non-numeric [facility]'s Cord blood results) [facility]) Basos 0 % Normal (applies [facility]GEN (St to non-numeric [facility]'s results) [facility]) Eos 11 % Normal (applies MEDGEN (St to non-numeric [facility]'s results) [facility]) Lymphs 1.8 Normal (applies MEDGEN (St (Absolute) x10E3/uL to non-numeric [facility]'s results) [facility]) Neutrophils 5.1 Normal (applies MEDGEN (St (Absolute) x10E3/uL to non-numeric [facility]'s results) [facility]) Monocytes(Absolu 1.5 Above high normal MEDGE N (St te) x10E3/uL [facility]'s [facility]) Eos (Absolute) 1.0 Above high normal [facility] (St x10E3/uL [facility], ) Baso (Absolute) 0.0 Normal (applies MEDGEN ( St x10E3/uL to non-numeric [facility]'s results) [facility]) Immature 2 % Normal (applies MEDGEN (St Granulocytes to non-numeric Juan [facility]'s results) [facility]) Immature Grans 0.2 Above high normal [facility]GEN (St (Abs) x10E3/uL [facility]'s [facility]) Hematology Note: Normal (applies MEDGEN (St Comments: to non-numeric [facility]'s results) [facility]) ID Date Data Source [id number] 09/22/2019 12:00:00 AM EST [facility] ([facility], ) Name Value Range Interpretation Code Description Data Lisa rce(s) Supporting Document(s ) ID Date Data Source [id number] 09/22/2019 12:00:00 AM EST [facility] ([facility], ) Name Value Range Interpretation Code Description Data Supporting Source(s) Document(s ) PTH, Intact 14 pg/mL Below low normal [facility] ([facility], ) ID Date Data Source [id number] 09/22/2019 12:00:00 AM EST [facility] ([facility] ) Name Value Range Interpretation Code Description Data Lisa rce(s) Supporting Document(s ) ID Date Data Source [id number] 09/22/2019 12:00:00 AM EST [facility] ([facility] ) Name Value Range Interpretation Code Description Data Supporting Source(s) Document(s ) PTH, Intact 14 pg/mL Below low normal [facility] ([facility], ) ID Date Data Source [id number] 09/22/2019 12:00:00 AM EST [facility] (St [facility], ) Name Value Range Interpretation Code Description Data Supporting Source(s) Document(s ) Ferritin, 329 ng/mL Normal (applies to MEDGEN (St Serum non-numeric [facility]'s results) [facility], ) ID Date Data Source [id number] 09/22/2019 12:00:00 AM EST [facility] ([facility], ) Name Value Range Interpretation Description Data Sup porting Code Source(s) Document(s ) Deprecated 4.8 mg/dL Above high normal MEDGEN (St Phosphorus [facility] [Mass/time] in [facility], ) 24 hour Urine ID Date Data Source [id number] 09/22/2019 12:00:00 AM EST [facility] ([facility], ) Name Value Range Interpretation Code Description Data Lisa rce(s) Supporting Document(s ) RAGINI Normal (applies to MEDGEN (St Interpreta non-numeric results) [facility] M edical, tion:U ) ID Date Data Source [id number] 09/22/2019 12:00:00 AM EST [facility] ([facility], ) Name Value Range Interpretation Description Data Sup porting Code Source(s) Document(s ) Vitamin D, 36.2 Normal (applies to MEDGEN (St 25-Hydroxy ng/mL non-numeric [facility] results) [facility], ) ID Date Data Source [id number] 09/22/2019 12:00:00 AM EST [facility] ([facility], ) Name Value Range Interpretation Code Description Data Supporting Source(s) Document(s ) Albumin, 693.2 Normal (applies to MEDGEN (St Urine ug/mL non-numeric [facility] results) [facility], ) Alb/Creat 394.1 mg/g Above high normal MEDGEN (St Ratio creat [facility], ) ID Date Data Source [id number] 09/22/2019 12:00:00 AM EST [facility], ) Name Value Range Interpretation Description Data Sup porting Code Source(s) Document(s ) Free [place] 476.00 Above high normal MEDGEN (St Lt mg/L [facility], ) Free [place] 44.50 mg/L Above high normal MEDGEN (S t Lt [facility], ) [place] 10.70 Above high normal MEDGEN (St a Ratio,U [facility], ) ID Date Data Source [id number] 09/22/2019 12:00:00 AM EST MEDGEN ([facility], ) Name Value Range Interpretation Description Data Sup porting Code Source(s) Document(s ) Free [place] 38.9 mg/L Above high normal MEDGEN (St Lt Chains,S [facility], ) Free [place] 133.0 mg/L Above high normal MEDGEN (S t Lt Chains,S [facility], ) [place]amb[place] 0.29 Normal (applies to MEDGEN (S t a Ratio,S non-numeric Juan C's results) [facility], ) ID Date Data Source [id number] 09/22/2019 12:00:00 AM EST MEDGEN ([facility], ) Name Value Range Interpretation Code Description Data Supporting Source(s) Document(s ) Creatinine 175.9 Normal (applies to MEDGEN (St , Urine mg/dL non-numeric Juan C's results) [facility], ) Protein/Cr 833 mg/g Above high normal MEDGEN (St eat Ratio creat [facility], ) ID Date Data Source [id number] 09/22/2019 12:00:00 AM EST MEDGEN (St [facility], ) Name Value Range Interpretation Description Data Sup porting Code Source(s) Document(s ) Immunofixation Normal (applies MEDGEN (S t Result, Serum to non-numeric Juan C's results) [facility], ) Immunoglobulin G, 3973 Above high normal MEDG EN (St Qn, Serum mg/dL [facility]) Immunoglobulin A, 25 mg/dL Below low normal MEDGE N (St Qn, Serum [facility], ) Immunoglobulin M, 13 mg/dL Below low normal MEDGE N (St Qn, Serum Juan C's [facility]) ID Date Data Source [id number] 09/22/2019 12:00:00 AM EST MEDGEN ([facility]) Name Value Range Interpretation Description Data Sup porting Code Source(s) Document(s ) Iron 297 ug/dL Normal (applies to MEDGEN (St Bind.Cap.(TIBC non-numeric Juan C's ) results) [facility], ) UIBC 222 ug/dL Normal (applies to MEDGEN (St non-numeric Juan C's results) [facility], ) Iron 75 ug/dL Normal (applies to MEDGEN (St [Mass/volume] non-numeric Juan C's in Serum or results) [facility], ) Plasma Iron 25 % Normal (applies to MEDGEN (St saturation non-numeric Juan C's [Mass results) [facility], ) Fraction] in Serum or Plasma ID Date Data Source [id number] 09/22/2019 12:00:00 AM EST MEDGEN ([facility], ) Name Value Range Interpretation Description Data Sup porting Code Source(s) Document(s ) Protein,Tot 146.6 Normal (applies to MEDGEN (S t al,Urine mg/dL non-numeric Juan C's results) [facility], ) Albumin, U 47.8 % Normal (applies to MEDGEN (St non-numeric Juan C's results) [facility], ) Alpha-1-Nadine 3.5 % Normal (applies to MEDGEN (S t bulin, U non-numeric Juan C's results) [facility], ) Alpha-2-Nadine 9.6 % Normal (applies to MEDGEN (S t bulin, U non-numeric Juan C's results) [facility]) Beta 24.4 % Normal (applies to MEDGEN (St Globulin, U non-numeric Juan C's results) [facility], ) Gamma 14.8 % Normal (applies to MEDGEN (St Globulin, U non-numeric Juan C's results) [facility], ) M-Kevyn, % 9.8 % Above high normal MEDGEN ([facility], ) Please Normal (applies to MEDGEN (St note: non-numeric Juan C's results) [facility], ) PDF . Normal (applies to MEDGEN (St non-numeric Juan C's results) [facility], ) ID Date Data Source [id number] 09/22/2019 12:00:00 AM EST MEDGEN ([facility], ) Name Value Range Interpretation Description Data Sup porting Code Source(s) Document(s ) Protein 9.0 g/dL Above high normal MEDGEN (St [Mass/volume] in Juan C's Serum or Plasma Medical, ) Microalbumin 4.0 g/dL Normal (applies MEDGEN (St [Mass/time] in to non-numeric Juan C's Urine collected results) [facility], for unspecified PC) duration Xrkio-3-Gelgzccx 0.2 g/dL Normal (applies MEDGEN (St to non-numeric Juan C's results) Medical, ) Fwysm-4-Oeaqsrge 0.8 g/dL Normal (applies MEDGEN (St to non-numeric Juan C's results) [facility], ) Beta globulin 0.8 g/dL Normal (applies MEDGEN (St [Mass/volume] in to non-numeric Juan C's Urine by results) Medical, Electrophoresis ) Gamma globulin 3.2 g/dL Above high normal MEDGEN (St [Mass/volume] by Juan C's Electrophoresis in Medical, Urine collected PC) for unspecified duration M-Kevyn 2.9 g/dL Above high normal MEDGEN ([facility], ) Globulin, Total 5.0 g/dL Above high normal MEDGEN ([facility], ) A/G Ratio 0.8 Normal (applies MEDGEN (St to non-numeric Juan C's results) Medical, ) Please note: Normal (applies MEDGEN (St to non-numeric Juan C's results) Medical, ) PDF . Normal (applies MEDGEN (St to non-numeric Juan C's results) [facility], ) ID Date Data Source [id number] 09/22/2019 12:00:00 AM EST MEDGEN ([facility], ) Name Value Range Interpretation Description [...] to non-numeric Juan C's Urine collected results) [facility], for unspecified PC) duration Ketones Negative [...] results) Medical, ) ID Date Data Source [id number] 09/22/2019 12:00:00 AM EST MEDGEN (St Julienne [...] (St Oxalate to non-numeric Juan C's results) [facility], ) Mucus Threads Present Normal (applies MEDGEN (St to non-numeric Juan C's results) [facility], ) Bacteria Few Normal (applies MEDGEN (St [Presence] in to non-numeric Juan C's Prostatic results) [facility], ) fluid by Light microscopy ID Date Data Source [id number] 09/22/2019 12:00:00 AM EST MEDGEN ([facility], ) Name Value Range Interpretation Description Data Sup porting Code Source(s) Document(s ) Leukocytes 9.5 Normal (applies MEDGEN (St [#/volume] in x10E3/uL to non-numeric Juan C's Blood by results) [facility], ) Automated count Erythrocytes 3.28 Below low normal MEDGEN (St [#/volume] in x10E6/uL Juan C's Blood by [facility], ) Automated count Hemoglobin 10.9 Below low normal MEDGEN (St [Mass/volume] in g/dL Juan C's Blood [facility], ) Hematocrit 32.1 % Below low normal MEDGEN (St [Volume Juan C's Fraction] of [facility], ) Blood by Automated count MCV 98 fL Above high normal MEDGEN ([facility], ) MCH 33.2 pg Above high normal MEDGEN ([facility], ) MCHC 34.0 Normal (applies MEDGEN (St g/dL to non-numeric Juan C's results) [facility], ) RDW 17.3 % Above high normal MEDGEN ([facility], ) Platelets 240 Normal (applies MEDGEN (St [#/area] in x10E3/uL to non-numeric Juan C's Blood by results) [facility], ) Microscopy high power field Neutrophils [#] 53 % Normal (applies MEDGEN ( St in Body fluid by to non-numeric Juan C's Manual count results) [facility], ) Lymphs 19 % Normal (applies MEDGEN (St to non-numeric Juan C's results) [facility], ) Monocytes 15 % Normal (applies MEDGEN (St [#/volume] in to non-numeric Juan C's Cord blood results) [facility], ) Eos 11 % Normal (applies [...] MEDGE N (St te) x10E3/uL [facility], ) Eos (Absolute) 1.0 Above high normal MEDGEN (St x10E3/uL [facility], ) Baso (Absolute) 0.0 Normal (applies MEDGEN ( St x10E3/uL to non-numeric Juan C's results) Medical, ) Immature 2 % Normal (applies MEDGEN (St Granulocytes to non-numeric Juan C's results) Medical, ) Immature Grans 0.2 Above high normal MEDGEN (St (Abs) x10E3/uL [facility], ) Hematology Note: Normal (applies MEDGEN (St Comments: to non-numeric Juan C's results) Medical, ) ID Date Data Source [id number] 09/22/2019 12:00:00 AM EST MEDGEN ([facility], ) Name Value Range Interpretation Code Description Data Lisa rce(s) Supporting Document(s ) ID Date Data Source [id number] 09/22/2019 12:00:00 AM EST MEDGEN ([facility], ) Name Value Range Interpretation Code Description Data Supporting Source(s) Document(s ) PTH, Intact 14 pg/mL Below low normal MEDGEN ([facility], ) ID Date Data Source [id number] 09/22/2019 12:00:00 AM EST MEDGEN ([facility], ) Name Value Range Interpretation Code Description Data Supporting Source(s) Document(s ) Ferritin, 329 ng/mL Normal (applies to MEDGEN (St Serum non-numeric Juan C's results) Medical, ) ID Date Data Source [id number] 09/22/2019 12:00:00 AM EST MEDGEN ([facility], ) Name Value Range Interpretation Description Data Sup porting Code Source(s) Document(s ) Deprecated 4.8 mg/dL Above high normal MEDGEN (St Phosphorus Juan C's [Mass/time] in Medical, ) 24 hour Urine ID Date Data Source [id number] 09/22/2019 12:00:00 AM EST MEDGEN ([facility], ) Name Value Range Interpretation Code Description Data Lisa rce(s) Supporting Document(s ) ID Date Data Source [id number] 09/22/2019 12:00:00 AM EST MEDGEN ([facility], ) Name Value Range Interpretation Description Data Sup porting Code Source(s) Document(s ) Vitamin D, 36.2 Normal (applies to MEDGEN (St 25-Hydroxy ng/mL non-numeric Juan C's results) [facility], ) ID Date Data Source [id number] 09/22/2019 12:00:00 AM EST MEDGEN ([facility], ) Name Value Range Interpretation Code Description Data Supporting Source(s) Document(s ) Albumin, 693.2 Normal (applies to MEDGEN (St Urine ug/mL non-numeric Juan C's results) Medical, ) Alb/Creat 394.1 mg/g Above high normal MEDGEN (St Ratio creat [facility], ) ID Date Data Source [id number] 09/22/2019 12:00:00 AM EST MEDGEN ([facility], ) Name Value Range Interpretation Description Data Sup porting Code Source(s) Document(s ) Free [place] 476.00 Above high normal MEDGEN (St Lt mg/L Juan C's [facility], [facility], PC) Free [place] 44.50 mg/L Above high normal MEDGEN (S t Lt Juan C's [facility],Ur [facility], [facility]) [place] 10.70 Above high normal MEDGEN (St a Ratio,U [facility], ) ID Date Data Source [id number] 09/22/2019 12:00:00 AM EST MEDGEN ([facility], ) Name Value Range Interpretation Description Data Sup porting Code Source(s) Document(s ) Free [place] 38.9 mg/L Above high normal MEDGEN (St Lt Chains,S [facility], [facility]) Free [place]ambda 133.0 mg/L Above high normal MEDGEN (S t Lt Chains,S [facility], [facility]) [place]amb[place] 0.29 Normal (applies to MEDGEN (S t a Ratio,S non-numeric Juan C's results) [facility]) ID Date Data Source [id number] 09/22/2019 12:00:00 AM EST MEDGEN (St [facility]) Name Value Range Interpretation Code Description Data Supporting Source(s) Document(s ) Creatinine 175.9 Normal (applies to MEDGEN (St , Urine mg/dL non-numeric Juan C's results) [facility]) Protein/Cr 833 mg/g Above high normal MEDGEN (St eat Ratio creat [facility]) ID Date Data Source [id number] 09/22/2019 12:00:00 AM EST MEDGEN ([facility]) Name Value Range Interpretation Description Data Sup porting Code Source(s) Document(s ) Immunoglobulin G, 3973 Above high normal MEDG EN (St Qn, Serum mg/dL [facility]) Immunoglobulin A, 25 mg/dL Below low normal MEDGE N (St Qn, Serum [facility]) Immunoglobulin M, 13 mg/dL Below low normal MEDGE N (St Qn, Serum [facility]) ID Date Data Source [id number] 09/22/2019 12:00:00 AM EST MEDGEN ([facility]) Name Value Range Interpretation Description Data Sup porting Code Source(s) Document(s ) Iron 297 ug/dL Normal (applies to MEDGEN (St Bind.Cap.(TIBC non-numeric Juan C's ) results) [facility]) UIBC 222 ug/dL Normal (applies to MEDGEN (St non-numeric Juan C's results) [facility]) Iron 25 % Normal (applies to MEDGEN (St saturation non-numeric Juan C's [Mass results) [facility]) Fraction] in Serum or Plasma Iron 75 ug/dL Normal (applies to MEDGEN (St [Mass/volume] non-numeric Juan C's in Serum or results) [facility]) Plasma ID Date Data Source [id number] 09/22/2019 12:00:00 AM EST MEDGEN ([facility]) Name Value Range Interpretation Code Description Data Supporting Source(s) Document(s ) Albumin, U 47.8 % Normal (applies to MEDGEN (St non-numeric Juan C's results) Medical, ) Protein,To 146.6 Normal (applies to MEDGEN (St ruth,Urine mg/dL non-numeric Juan C's results) Medical, ) Alpha-1-Gl [...] % 9.8 % Above high normal MEDGEN ([facility], ) PDF . Normal (applies to MEDGEN (St non-numeric Juan C's results) Medical, ) ID Date Data Source [id number] 09/22/2019 12:00:00 AM EST MEDGEN ([facility], ) Name Value Range Interpretation Description Data Sup porting Code Source(s) Document(s ) Protein 9.0 g/dL Above high normal MEDGEN (St [Mass/volume] in Juan C's Serum or Plasma Medical, ) Olavj-8-Wffryzbc 0.2 g/dL Normal (applies MEDGEN (St to non-numeric Juan C's results) Medical, ) Microalbumin 4.0 g/dL Normal (applies MEDGEN (St [Mass/time] in to non-numeric Juan C's Urine collected results) [facility], for unspecified PC) duration Fbbzr-2-Cibyeeog 0.8 g/dL Normal (applies MEDGEN (St to non-numeric Juan C's results) Medical, ) Beta globulin 0.8 g/dL Normal (applies MEDGEN (St [Mass/volume] in to non-numeric Juan C's Urine by results) [facility], Electrophoresis PC) Gamma globulin 3.2 g/dL Above high normal MEDGEN (St [Mass/volume] by Juan C's Electrophoresis in Medical, Urine collected PC) for unspecified duration M-Kevyn 2.9 g/dL Above high normal MEDGEN ([facility], ) Globulin, Total 5.0 g/dL Above high normal MEDGEN ([facility], ) A/G Ratio 0.8 Normal (applies MEDGEN (St to non-numeric Juan C's results) Medical, ) PDF . Normal (applies MEDGEN (St to non-numeric Juan C's results) Medical, ) ID Date Data Source [id number] 09/22/2019 12:00:00 AM EST MEDGEN (St [facility], ) Name Value Range Interpretation Description [...] results) Medical, ) ID Date Data Source [id number] 09/22/2019 12:00:00 AM EST MEDGEN ([facility], ) Name Value Range Interpretation Description Data Sup porting Code Source(s) Document(s ) WBC 0-5 Normal (applies MEDGEN (St to non-numeric Juan C's results) [facility], ) RBC 0-2 Normal (applies MEDGEN (St to non-numeric Juan C's results) [facility], ) Epithelial None seen Normal (applies MEDGEN (St Cells (non to non-numeric Juan C's renal) results) [facility], ) Casts Present Abnormal (applies MEDGEN (St [#/area] in to non-numeric Juan C's Urine results) [facility], ) sediment by Automated count Cast Type Granular Abnormal (applies MEDGEN (St casts to non-numeric Juan C's results) [facility], ) Crystals Present Abnormal (applies MEDGEN (St [#/area] in to non-numeric Juan C's Body fluid by results) [facility], ) Light microscopy Crystal Type Calcium Normal (applies MEDGEN (St Oxalate to non-numeric Jua Nc's results) [facility], ) Mucus Threads Present Normal (applies MEDGEN (St to non-numeric Juan C's results) [facility], ) Bacteria Few Normal (applies MEDGEN (St [Presence] in to non-numeric Juan C's Prostatic results) [facility], ) fluid by Light microscopy ID Date Data Source [id number] 09/22/2019 12:00:00 AM EST MEDGEN ([facility], ) Name Value Range Interpretation Description Data Sup porting Code Source(s) Document(s ) Leukocytes 9.5 Normal (applies MEDGEN (St [#/volume] in x10E3/uL to non-numeric Juan C's Blood by results) [facility], ) Automated count Erythrocytes 3.28 Below low normal MEDGEN (St [#/volume] in x10E6/uL Juan C's Blood by [facility], ) Automated count Hemoglobin 10.9 Below low normal MEDGEN (St [Mass/volume] in g/dL Juan C's Blood [facility], ) Hematocrit 32.1 % Below low normal MEDGEN (St [Volume Juan C's Fraction] of [facility], ) Blood by Automated count MCV 98 fL Above high normal MEDGEN ([facility], ) MCH 33.2 pg Above high normal MEDGEN ([facility], ) MCHC 34.0 Normal (applies MEDGEN (St g/dL to non-numeric Juan C's results) [facility], ) RDW 17.3 % Above high normal MEDGEN ([facility], ) Platelets 240 Normal (applies MEDGEN (St [#/area] in x10E3/uL to non-numeric Juan C's Blood by results) [facility]) Microscopy high power field Neutrophils [#] 53 % Normal (applies MEDGEN ( St in Body fluid by to non-numeric Juan C's Manual count results) [facility], ) Lymphs 19 % Normal (applies MEDGEN (St to non-numeric Juan C's results) [facility]) Monocytes 15 % Normal (applies MEDGEN (St [#/volume] in to non-numeric Juan C's Cord blood results) [facility]) Eos 11 % Normal (applies MEDGEN (St to non-numeric Juan C's results) [facility]) Basos 0 % Normal (applies MEDGEN (St to non-numeric Juan C's results) [facility]) Neutrophils 5.1 Normal (applies MEDGEN (St (Absolute) x10E3/uL to non-numeric Juan C's results) [facility]) Monocytes(Absolu 1.5 Above high normal MEDGE N (St te) x10E3/uL Juan C's [facility]) Lymphs 1.8 Normal (applies MEDGEN (St (Absolute) x10E3/uL to non-numeric Juan C's results) [facility]) Eos (Absolute) 1.0 Above high normal MEDGEN (St x10E3/uL [facility], ) Baso (Absolute) 0.0 Normal (applies MEDGEN ( St x10E3/uL to non-numeric Juan C's results) [facility]) Immature 2 % Normal (applies MEDGEN (St Granulocytes to non-numeric Juan C's results) [facility]) Immature Grans 0.2 Above high normal MEDGEN (St (Abs) x10E3/uL [facility]) Hematology Note: Normal (applies MEDGEN (St Comments: to non-numeric Juan C's results) [facility]) ID Date Data Source [id number] 09/22/2019 12:00:00 AM EST MEDGEN ([facility], ) Name Value Range Interpretation Code Description Data Lisa rce(s) Supporting Document(s ) ID Date Data Source [id number] 09/22/2019 12:00:00 AM EST MEDGEN ([facility], ) Name Value Range Interpretation Code Description Data Supporting Source(s) Document(s ) PTH, Intact 14 pg/mL Below low normal MEDGEN ([facility], ) ID Date Data Source [id number] 09/22/2019 12:00:00 AM EST MEDGEN ([facility], ) Name Value Range Interpretation Code Description Data Supporting Source(s) Document(s ) Ferritin, 329 ng/mL Normal (applies to MEDGEN (St Serum non-numeric Juan C's results) [facility], ) ID Date Data Source [id number] 09/22/2019 12:00:00 AM EST MEDGEN ([facility], ) Name Value Range Interpretation Description Data Sup porting Code Source(s) Document(s ) Deprecated 4.8 mg/dL Above high normal MEDGEN (St Phosphorus Juan C's [Mass/time] in [facility], ) 24 hour Urine ID Date Data Source [id number] 09/22/2019 12:00:00 AM EST MEDGEN ([facility], ) Name Value Range Interpretation Code Description Data Lisa rce(s) Supporting Document(s ) ID Date Data Source [id number] 09/22/2019 12:00:00 AM EST MEDGEN ([facility], ) Name Value Range Interpretation Description Data Sup porting Code Source(s) Document(s ) Vitamin D, 36.2 Normal (applies to MEDGEN (St 25-Hydroxy ng/mL non-numeric Juan C's results) [facility], ) ID Date Data Source [id number] 09/22/2019 12:00:00 AM EST MEDGEN ([facility], ) Name Value Range Interpretation Code Description Data Supporting Source(s) Document(s ) Albumin, 693.2 Normal (applies to MEDGEN (St Urine ug/mL non-numeric Juan C's results) [facility], ) Alb/Creat 394.1 mg/g Above high normal MEDGEN (St Ratio creat [facility], ) ID Date Data Source [id number] 09/22/2019 12:00:00 AM EST MEDGEN ([facility], ) Name Value Range Interpretation Description Data Sup porting Code Source(s) Document(s ) Free [place] 476.00 Above high normal MEDGEN (St Lt mg/L Juan C's [facility], ) Free [place] 44.50 mg/L Above high normal MEDGEN (S t Lt Juan C's [facility], ) [place] 10.70 Above high normal MEDGEN (St a Ratio,U [facility], ) ID Date Data Source [id number] 09/22/2019 12:00:00 AM EST MEDGEN ([facility], ) Name Value Range Interpretation Description Data Sup porting Code Source(s) Document(s ) Free [place] 38.9 mg/L Above high normal MEDGEN (St Lt Chains,S [facility], ) [place] 0.29 Normal (applies to MEDGEN (S t a Ratio,S non-numeric Juan C's results) [facility], ) Free [place]ambda 133.0 mg/L Above high normal MEDGEN (S t Lt Chains,S [facility], ) ID Date Data Source [id number] 09/22/2019 12:00:00 AM EST MEDGEN (St [facility], ) Name Value Range Interpretation Code Description Data Supporting Source(s) Document(s ) Creatinine 175.9 Normal (applies to MEDGEN (St , Urine mg/dL non-numeric Juan C's results) [facility], ) Protein/Cr 833 mg/g Above high normal MEDGEN (St eat Ratio creat [facility], ) ID Date Data Source [id number] 09/22/2019 12:00:00 AM EST MEDGEN ([facility], ) Name Value Range Interpretation Description Data Sup porting Code Source(s) Document(s ) Immunoglobulin A, 25 mg/dL Below low normal MEDGE N (St Qn, Serum [facility], ) Immunoglobulin G, 3973 Above high normal MEDG EN (St Qn, Serum mg/dL [facility]) Immunoglobulin M, 13 mg/dL Below low normal MEDGE N (St Qn, Serum [facility], ) ID Date Data Source [id number] 09/22/2019 12:00:00 AM EST MEDGEN (St [facility], ) Name Value Range Interpretation Description Data Sup porting Code Source(s) Document(s ) Iron 297 ug/dL Normal (applies to MEDGEN (St Bind.Cap.(TIBC non-numeric Juan C's ) results) Medical, ) UIBC 222 ug/dL Normal (applies to MEDGEN (St non-numeric Juan C's results) Medical, ) Iron 75 ug/dL Normal (applies to MEDGEN (St [Mass/volume] non-numeric Juan C's in Serum or results) [facility], ) Plasma Iron 25 % Normal (applies to MEDGEN (St saturation non-numeric Juan C's [Mass results) Medical, ) Fraction] in Serum or Plasma ID Date Data Source [id number] 09/22/2019 12:00:00 AM EST MEDGEN ([facility], ) Name Value Range Interpretation Code Description Data Supporting Source(s) Document(s ) Protein,To 146.6 Normal (applies to MEDGEN (St ruth,Urine mg/dL non-numeric Juan C's results) [facility], ) Alpha-1-Gl 3.5 % Normal (applies to MEDGEN (St obulin, U non-numeric Juan C's results) [facility], ) Albumin, U 47.8 % Normal (applies to MEDGEN (St non-numeric Juan C's results) [facility], ) Alpha-2-Gl 9.6 % Normal (applies to MEDGEN (St obulin, U non-numeric Juan C's results) [facility], ) Beta 24.4 % Normal (applies to MEDGEN (St Globulin, non-numeric Juan C's U results) [facility], ) Gamma 14.8 % Normal (applies to MEDGEN (St Globulin, non-numeric Juan C's U results) [facility], ) PDF . Normal (applies to MEDGEN (St non-numeric Juan C's results) Medical, ) M-Kevyn, % 9.8 % Above high normal MEDGEN ([facility], ) ID Date Data Source [id number] 09/22/2019 12:00:00 AM EST MEDGEN ([facility], ) Name Value Range Interpretation Description Data Sup porting Code Source(s) Document(s ) Protein 9.0 g/dL Above high normal MEDGEN (St [Mass/volume] in Juan C's Serum or Plasma [facility], ) Microalbumin 4.0 g/dL Normal (applies MEDGEN (St [Mass/time] in to non-numeric Juan C's Urine collected results) Medical, for unspecified ) duration Mmqla-2-Cpxnoace 0.2 g/dL Normal (applies MEDGEN (St to non-numeric Juan C's results) Medical, PC) Rrieh-1-Vpfnmicx 0.8 g/dL Normal (applies MEDGEN (St to non-numeric [facility] results) Medical, PC) Beta globulin 0.8 g/dL Normal (applies MEDGEN (St [Mass/volume] in to non-numeric [facility] Urine by results) Medical, Electrophoresis PC) Gamma globulin 3.2 g/dL Above high normal MEDGEN (St [Mass/volume] by [facility] Electrophoresis in Medical, Urine collected PC) for unspecified duration M-Kevyn 2.9 g/dL Above high normal MEDGEN ([facility], ) Globulin, Total 5.0 g/dL Above high normal MEDGEN ([facility], ) A/G Ratio 0.8 Normal (applies MEDGEN (St to non-numeric [facility] results) Medical, ) PDF . Normal (applies MEDGEN (St to non-numeric [facility] results) Medical, ) ID Date Data Source [id number] 09/22/2019 12:00:00 AM EST MEDGEN ([facility], ) Name Value Range Interpretation Description [...] results) Medical, ) ID Date Data Source [id number] 09/22/2019 12:00:00 AM EST [facility] ([facility], ) Name Value Range Interpretation Description Data Sup porting Code Source(s) Document(s ) WBC 0-5 Normal (applies MEDGEN (St to non-numeric [facility] results) Medical, ) RBC 0-2 Normal (applies MEDGEN (St to non-numeric [facility] results) Medical, ) Epithelial None seen Normal (applies MEDGEN (St Cells (non to non-numeric [facility] renal) results) Medical, ) Cast Type Granular Abnormal (applies MEDGEN (St casts to non-numeric [facility] results) Medical, ) Casts Present Abnormal (applies MEDGEN (St [#/area] in to non-numeric [facility] Urine results) Medical, ) sediment by Automated count Crystals Present Abnormal [...] by Light microscopy ID Date Data Source [id number] 09/22/2019 12:00:00 AM EST [facility] ([facility], ) Name Value Range Interpretation Description Data Sup porting Code Source(s) Document(s ) Leukocytes 9.5 Normal (applies MEDGEN (St [#/volume] in x10E3/uL to non-numeric [facility] Blood by results) [facility]) Automated count Erythrocytes 3.28 Below low normal MEDGEN (St [#/volume] in x10E6/uL [facility] Blood by [facility]) Automated count Hematocrit 32.1 % Below low normal MEDGEN (St [Volume Juan [facility]'s Fraction] of [facility]) Blood by Automated count Hemoglobin 10.9 Below low normal MEDGEN (St [Mass/volume] in g/dL [facility] Blood [facility]) MCV 98 fL Above high normal MEDGEN ([facility], ) MCH 33.2 pg Above high normal MEDGEN ([facility], ) MCHC 34.0 Normal (applies MEDGEN (St g/dL to non-numeric [facility] results) [facility]) RDW 17.3 % Above high normal [facility] ([facility]) Platelets 240 Normal (applies MEDGEN (St [#/area] in x10E3/uL to non-numeric [facility] Blood by results) [facility]) Microscopy high power field Neutrophils [#] 53 % Normal (applies MEDGEN ( St in Body fluid by to non-numeric [facility] Manual count results) [facility]) Lymphs 19 % Normal (applies MEDGEN (St to non-numeric [facility] results) [facility]) Eos 11 % Normal (applies MEDGEN (St to non-numeric [facility] results) [facility]) Monocytes 15 % Normal (applies MEDGEN (St [#/volume] in to non-numeric [facility] Cord blood results) [facility]) Neutrophils 5.1 Normal (applies MEDGEN (St (Absolute) x10E3/uL to non-numeric [facility] results) [facility]) Basos 0 % Normal (applies MEDGEN (St to non-numeric [facility] results) [facility]) Lymphs 1.8 Normal (applies MEDGEN (St (Absolute) x10E3/uL to non-numeric [facility] results) [facility]) Eos (Absolute) 1.0 Above high normal MEDGEN (St x10E3/uL [facility]'s [facility]) Monocytes(Absolu 1.5 Above high normal MEDGE N (St te) x10E3/uL [facility]'s [facility]) Baso (Absolute) 0.0 Normal (applies MEDGEN ( St x10E3/uL to non-numeric [facility] results) Medical, ) Immature Grans 0.2 Above high normal MEDGEN (St (Abs) x10E3/uL [facility], ) Immature 2 % Normal (applies MEDGEN (St Granulocytes to non-numeric [facility] results) Medical, ) Hematology Note: Normal (applies MEDGEN (St Comments: to non-numeric [facility] results) Medical, ) ID Date Data Source [id number] 09/22/2019 12:00:00 AM EST [facility] ([facility], ) Name Value Range Interpretation Code Description Data Lisa rce(s) Supporting Document(s ) ID Date Data Source [id number] 09/22/2019 12:00:00 AM EST [facility] ([facility], ) Name Value Range Interpretation Code Description Data Supporting Source(s) Document(s ) PTH, Intact 14 pg/mL Below low normal [facility] ([facility], ) ID Date Data Source [id number] 09/22/2019 12:00:00 AM EST [facility] ([facility], ) Name Value Range Interpretation Code Description Data Supporting Source(s) Document(s ) Ferritin, 329 ng/mL Normal (applies to MEDGEN (St Serum non-numeric [facility] results) Medical, ) ID Date Data Source [id number] 09/22/2019 12:00:00 AM EST MED[facility] ([facility], ) Name Value Range Interpretation Description Data Sup porting Code Source(s) Document(s ) Deprecated 4.8 mg/dL Above high normal MEDGEN (St Phosphorus [facility] [Mass/time] in Medical, ) 24 hour Urine ID Date Data Source [id number] 09/22/2019 12:00:00 AM EST MED[facility] ([facility], ) Name Value Range Interpretation Code Description Data Lisa rce(s) Supporting Document(s ) ID Date Data Source [id number] 09/22/2019 12:00:00 AM EST MED[facility] ([facility], ) Name Value Range Interpretation Description Data Sup porting Code Source(s) Document(s ) Vitamin D, 36.2 Normal (applies to MEDGEN (St 25-Hydroxy ng/mL non-numeric [facility] results) Medical, ) ID Date Data Source [id number] 09/22/2019 12:00:00 AM EST [facility] ([facility] Name Value Range Interpretation Code Description Data Supporting Source(s) Document(s ) Albumin, 693.2 Normal (applies to MEDGEN (St Urine ug/mL non-numeric [facility] results) Medical, ) Alb/Creat 394.1 mg/g Above high normal MEDGEN (St Ratio creat [facility]) ID Date Data Source [id number] 09/22/2019 12:00:00 AM EST [facility] ([facility] Name Value Range Interpretation Description Data Sup porting Code Source(s) Document(s ) Free [place] 476.00 Above high normal MEDGEN (St Lt mg/L [facility], [facility]) Free Lambda 44.50 mg/L Above high normal MEDGEN (S t Lt [facility], [facility]) [place] 10.70 Above high normal MEDGEN (St a Ratio,U [facility]) ID Date Data Source [id number] 09/22/2019 12:00:00 AM EST [facility] ([facility]) Name Value Range Interpretation Description Data Sup porting Code Source(s) Document(s ) Free [place] 38.9 mg/L Above high normal MEDGEN (St Lt Chains,S [facility]) Free Lambda 133.0 mg/L Above high normal MEDGEN (S t Lt Chains,S [facility], [facility]) [place] 0.29 Normal (applies to MEDGEN (S t a Ratio,S non-numeric [facility] results) Medical, ) ID Date Data Source [id number] 09/22/2019 12:00:00 AM EST [facility] ([facility] Name Value Range Interpretation Code Description Data Supporting Source(s) Document(s ) Creatinine 175.9 Normal (applies to MEDGEN (St , Urine mg/dL non-numeric [facility] results) Medical, ) Protein/Cr 833 mg/g Above high normal MEDGEN (St eat Ratio creat [facility]) ID Date Data Source [id number] 09/22/2019 12:00:00 AM EST [facility] ([facility] Name Value Range Interpretation Description Data Sup porting Code Source(s) Document(s ) Immunoglobulin G, 3973 Above high normal MEDG EN (St Qn, Serum mg/dL [facility]) Immunoglobulin A, 25 mg/dL Below low normal MEDGE N (St Qn, Serum [facility]) Immunoglobulin M, 13 mg/dL Below low normal MEDGE N (St Qn, Serum [facility]) ID Date Data Source [id number] 09/22/2019 12:00:00 AM EST MEDGEN ([facility]) Name Value Range Interpretation Description Data Sup porting Code Source(s) Document(s ) Iron 297 ug/dL Normal (applies to MEDGEN (St Bind.Cap.(TIBC non-numeric Juan C's ) results) [facility]) Iron 75 ug/dL Normal (applies to MEDGEN (St [Mass/volume] non-numeric [facility] in Serum or results) [facility]) Plasma UIBC 222 ug/dL Normal (applies to MEDGEN (St non-numeric [facility]'s results) [facility]) Iron 25 % Normal (applies to MEDGEN (St saturation non-numeric [facility]'s [Mass results) [facility]) Fraction] in Serum or Plasma ID Date Data Source [id number] 09/22/2019 12:00:00 AM EST MEDGEN ([facility]) Name Value Range Interpretation Code Description Data Supporting Source(s) Document(s ) Protein,To 146.6 Normal (applies to MEDGEN (St ruth,Urine mg/dL non-numeric [facility]'s results) [facility]) Albumin, U 47.8 % Normal (applies to MEDGEN (St non-numeric [facility]'s results) [facility]) Alpha-1-Gl 3.5 % Normal (applies to MEDGEN (St obulin, U non-numeric [facility]'s results) [facility]) Alpha-2-Gl 9.6 % Normal (applies to MEDGEN (St obulin, U non-numeric [facility] results) [facility]) Beta 24.4 % Normal (applies to MEDGEN (St Globulin, non-numeric [facility]'s U results) [facility]) Gamma 14.8 % Normal (applies to MEDGEN (St Globulin, non-numeric [facility]'s U results) [facility]) M-Kevyn, % 9.8 % Above high normal MEDGEN ([facility], ) PDF . Normal (applies to MEDGEN (St non-numeric [facility] C's results) [facility], ) ID Date Data Source [id number] 09/22/2019 12:00:00 AM EST MEDGEN ( [facility], ) Name Value Range Interpretation Description Data Sup porting Code Source(s) Document(s ) Protein 9.0 g/dL Above high normal MEDGEN (St [Mass/volume] in [facility]'s Serum or Plasma Medical, ) Microalbumin 4.0 g/dL Normal (applies MEDGEN (St [Mass/time] in to non-numeric [facility] Urine collected results) Medical, for unspecified PC) duration Hjuqw-7-Dtgrvmgs 0.2 g/dL Normal (applies MEDGEN (St to non-numeric [facility]'s results) Medical, ) Beta globulin 0.8 g/dL Normal (applies MEDGEN (St [Mass/volume] in to non-numeric [facility] Urine by results) Medical, Electrophoresis PC) Llpkv-0-Ehoyvoih 0.8 g/dL Normal (applies MEDGEN (St to non-numeric [facility] C's results) [facility], ) Gamma globulin 3.2 g/dL Above high normal MEDGEN (St [Mass/volume] by [facility]'s Electrophoresis in Medical, Urine collected PC) for unspecified duration M-Kevyn 2.9 g/dL Above high normal MEDGEN ([facility], ) Globulin, Total 5.0 g/dL Above high normal MEDGEN ([facility], ) PDF . Normal (applies MEDGEN (St to non-numeric [facility] C's results) Medical, ) A/G Ratio 0.8 Normal (applies MEDGEN (St to non-numeric Juan C's results) [facility], ) ID Date Data Source [id number] 09/22/2019 12:00:00 AM EST MEDGEN ( [facility] [employer] [facility], ) Name Value Range Interpretation Description [...] results) Medical, ) ID Date Data Source [id number] 09/22/2019 12:00:00 AM EST MEDGEN ([facility] [...] non-numeric [facility] renal) results) Medical, ) Cast Type Granular Abnormal (applies MEDGEN (St casts to non-numeric [facility]'s results) Medical, ) Casts Present Abnormal (applies MEDGEN (St [#/area] in to non-numeric [facility] Urine results) Medical, ) sediment by Automated count Crystal Type Calcium Normal (applies MEDGEN (St Oxalate to non-numeric Juan C's results) [facility], ) Crystals Present Abnormal (applies MEDGEN (St [#/area] in to non-numeric Juan C's Body fluid by results) [facility], ) Light microscopy Mucus Threads Present Normal (applies MEDGEN (St to non-numeric Juan C's results) [facility]) Bacteria Few Normal (applies MEDGEN (St [Presence] in to non-numeric Juan C's Prostatic results) [facility]) fluid by Light microscopy ID Date Data Source [id number] 09/22/2019 12:00:00 AM EST MEDGEN ([facility], ) Name Value Range Interpretation Description Data Sup porting Code Source(s) Document(s ) Leukocytes 9.5 Normal (applies MEDGEN (St [#/volume] in x10E3/uL to non-numeric [facility]'s Blood by results) [facility], ) Automated count Erythrocytes 3.28 Below low normal MEDGEN (St [#/volume] in x10E6/uL [facility] Blood by [facility], ) Automated count Hemoglobin 10.9 Below low normal MEDGEN (St [Mass/volume] in g/dL [facility]'s Blood [facility]) Hematocrit 32.1 % Below low normal MEDGEN (St [Volume Juan C's Fraction] of [facility]) Blood by Automated count MCV 98 fL Above high normal MEDGEN ([facility], ) MCHC 34.0 Normal (applies MEDGEN (St g/dL to non-numeric Juan C's results) [facility]) MCH 33.2 pg Above high normal MEDGEN ([facility], ) RDW 17.3 % Above high normal MEDGEN ([facility], ) Neutrophils [#] 53 % Normal (applies MEDGEN ( St in Body fluid by to non-numeric [facility] C's Manual count results) [facility], ) Platelets 240 Normal (applies MEDGEN (St [#/area] in x10E3/uL to non-numeric [facility] C's Blood by results) [facility]) Microscopy high power field Monocytes 15 % Normal (applies MEDGEN (St [#/volume] in to non-numeric Juan C's Cord blood results) [facility]) Lymphs 19 % Normal (applies MEDGEN (St to non-numeric [facility] C's results) [facility]) Eos 11 % Normal (applies [...] MEDGE N (St te) x10E3/uL [facility], ) Eos (Absolute) 1.0 Above high normal MEDGEN (St x10E3/uL [facility], ) Baso (Absolute) 0.0 Normal (applies MEDGEN ( St x10E3/uL to non-numeric [facility]'s results) Medical, ) Immature 2 % Normal (applies MEDGEN (St Granulocytes to non-numeric Juan C's results) [facility], ) Hematology Note: Normal (applies MEDGEN (St Comments: to non-numeric Juan C's results) Medical, ) Immature Grans 0.2 Above high normal MEDGEN (St (Abs) x10E3/uL [facility], ) ID Date Data Source [id number] 09/22/2019 12:00:00 AM EST MEDGEN ([facility], ) Name Value Range Interpretation Code Description Data Supporting Source(s) Document(s ) Ferritin, 329 ng/mL Normal (applies to MEDGEN (St Serum non-numeric [facility] C's results) [facility], ) ID Date Data Source [id number] 09/22/2019 12:00:00 AM EST [facility] ([facility], ) Name Value Range Interpretation Description Data Sup porting Code Source(s) Document(s ) Deprecated 4.8 mg/dL Above high normal MEDGEN (St Phosphorus [facility] C's [Mass/time] in Medical, ) 24 hour Urine ID Date Data Source [id number] 09/22/2019 12:00:00 AM EST [facility] ([facility], ) Name Value Range Interpretation Code Description Data Lisa rce(s) Supporting Document(s ) ID Date Data Source [id number] 09/22/2019 12:00:00 AM EST [facility] ([facility], ) Name Value Range Interpretation Description Data Sup porting Code Source(s) Document(s ) Vitamin D, 42.8 Normal (applies to MEDGEN (St 25-Hydroxy ng/mL non-numeric [facility]'s results) Medical, ) Vitamin D, 36.2 Normal (applies to MEDGEN (St 25-Hydroxy ng/mL non-numeric [facility]'s results) Medical, ) ID Date Data Source [id number] 09/22/2019 12:00:00 AM EST MEDGEN ([facility], ) Name Value Range Interpretation Code Description Data Supporting Source(s) Document(s ) Albumin, 693.2 Normal (applies to MEDGEN (St Urine ug/mL non-numeric [facility]'s results) Medical, ) Alb/Creat 394.1 mg/g Above high normal MEDGEN (St Ratio creat [facility], ) ID Date Data Source [id number] 09/22/2019 12:00:00 AM EST MEDGEN ([facility], ) Name Value Range Interpretation Description Data Sup porting Code Source(s) Document(s ) Free [place] 44.50 mg/L Above high normal MEDGEN (S t Lt [facility], ) Free [place] 476.00 Above high normal MEDGEN (St Lt mg/L [facility], ) [place] 10.70 Above high normal MEDGEN (St a Ratio,U [facility], ) ID Date Data Source [id number] 09/22/2019 12:00:00 AM EST MEDGEN ([facility], ) Name Value Range Interpretation Description Data Sup porting Code Source(s) Document(s ) Free [place] 38.9 mg/L Above high normal MEDGEN (St Lt Chains,S [facility], PC) Free Lambda 133.0 mg/L Above high normal MEDGEN (S t Lt Chains,S [facility], [facility]) [place] 0.29 Normal (applies to MEDGEN (S t a Ratio,S non-numeric [facility]'s results) [facility], ) ID Date Data Source [id number] 09/22/2019 12:00:00 AM EST MEDGEN ([facility], ) Name Value Range Interpretation Code Description Data Supporting Source(s) Document(s ) Creatinine 175.9 Normal (applies to MEDGEN (St , Urine mg/dL non-numeric [facility] C's results) [facility]) Protein/Cr 833 mg/g Above high normal MEDGEN (St eat Ratio creat [facility]) ID Date Data Source [id number] 09/22/2019 12:00:00 AM EST MEDGEN ([facility]) Name Value Range Interpretation Description Data Sup porting Code Source(s) Document(s ) Immunoglobulin G, 3973 Above high normal MEDG EN (St Qn, Serum mg/dL [facility]) Immunoglobulin M, 13 mg/dL Below low normal MEDGE N (St Qn, Serum [facility]) Immunoglobulin A, 25 mg/dL Below low normal MEDGE N (St Qn, Serum [facility]) ID Date Data Source [id number] 09/22/2019 12:00:00 AM EST MEDGEN ([facility]) Name Value Range Interpretation Description Data Sup porting Code Source(s) Document(s ) Iron 297 ug/dL Normal (applies to MEDGEN (St Bind.Cap.(TIBC non-numeric Juan C's ) results) [facility]) UIBC 222 ug/dL Normal (applies to MEDGEN (St non-numeric Juan C's results) [facility]) Iron 75 ug/dL Normal (applies to MEDGEN (St [Mass/volume] non-numeric Juan C's in Serum or results) [facility]) Plasma Iron 25 % Normal (applies to MEDGEN (St saturation non-numeric Juan C's [Mass results) [facility]) Fraction] in Serum or Plasma ID Date Data Source [id number] 09/22/2019 12:00:00 AM EST MEDGEN ([facility]) Name Value Range Interpretation Code Description Data Supporting Source(s) Document(s ) Protein,To 146.6 Normal (applies to MEDGEN (St ruth,Urine mg/dL non-numeric [facility] C's results) [facility]) Albumin, U 47.8 % Normal (applies to MEDGEN (St non-numeric Juan C's results) [facility]) Alpha-2-Gl 9.6 % Normal (applies to MEDGEN (St obulin, U non-numeric Juan C's results) [facility]) Alpha-1-Gl 3.5 % Normal (applies to MEDGEN (St obulin, U non-numeric Juan C's results) Medical, ) Gamma 14.8 % Normal (applies to MEDGEN (St Globulin, non-numeric Juan C's U results) Medical, ) Beta 24.4 % Normal (applies to MEDGEN (St Globulin, non-numeric Juan C's U results) Medical, ) M-Kevyn, % 9.8 % Above high normal MEDGEN ([facility], ) PDF . Normal (applies to MEDGEN (St non-numeric Juan C's results) Medical, ) ID Date Data Source [id number] 09/22/2019 12:00:00 AM EST [facility]GEN ([facility] [employer] [facility], ) Name Value Range Interpretation Description Data Sup porting Code Source(s) Document(s ) Protein 9.0 g/dL Above high normal MEDGEN (St [Mass/volume] in Juan C's Serum or Plasma Medical, ) Microalbumin 4.0 g/dL Normal (applies MEDGEN (St [Mass/time] in to non-numeric [facility]'s Urine collected results) [facility], for unspecified PC) duration Ryjvb-4-Dzyigkcm 0.2 g/dL Normal (applies MEDGEN (St to non-numeric Juan C's results) Medical, ) Xxugt-3-Mhumvohw 0.8 g/dL Normal (applies MEDGEN (St to non-numeric Juan C's results) [facility], ) Gamma globulin 3.2 g/dL Above high normal MEDGEN (St [Mass/volume] by Juan C's Electrophoresis in Medical, Urine collected PC) for unspecified duration Beta globulin 0.8 g/dL Normal (applies MEDGEN (St [Mass/volume] in to non-numeric [facility] Urine by results) Medical, Electrophoresis PC) Globulin, Total 5.0 g/dL Above high normal [facility]GEN ([facility], ) M-Kevyn 2.9 g/dL Above high normal MEDGEN ([facility], ) A/G Ratio 0.8 Normal (applies MEDGEN (St to non-numeric Juan C's results) Medical, ) PDF . Normal (applies MEDGEN (St to non-numeric [facility]'s results) Medical, ) ID Date Data Source [id number] 09/22/2019 12:00:00 AM EST MEDGEN ([facility] [...] results) Medical, PC) ID Date Data Source [id number] 09/22/2019 12:00:00 AM EST MEDGEN ([facility] [...] non-numeric Juan [facility]'s Body fluid by results) [facility], ) Light microscopy Bacteria Few Normal (applies MEDGEN (St [Presence] in to non-numeric [facility]'s Prostatic results) Medical, ) fluid by Light microscopy Mucus Threads Present Normal (applies MEDGEN (St to non-numeric Juan C's results) [facility], ) ID Date Data Source [id number] 09/22/2019 12:00:00 AM EST [facility] ([facility], ) Name Value Range Interpretation Description Data Sup porting Code Source(s) Document(s ) Erythrocytes 3.28 Below low normal MEDGEN (St [#/volume] in x10E6/uL Juan C's Blood by [facility], ) Automated count Leukocytes 11.8 Above high normal MEDGEN (St [#/volume] in x10E3/uL Juan C's Blood by [facility], ) Automated count Hematocrit 31.7 % Below low normal MEDGEN (St [Volume Juan C's Fraction] of [facility], ) Blood by Automated count Hemoglobin 10.8 Below low normal MEDGEN (St [Mass/volume] in g/dL Juan [facility] Blood [facility], ) MCV 97 fL Normal (applies MEDGEN (St to non-numeric Juan C's results) Medical, ) MCHC 34.1 Normal (applies MEDGEN (St g/dL to non-numeric Juan C's results) [facility], ) MCH 32.9 pg Normal (applies MEDGEN (St to non-numeric Juan C's results) [facility], ) Platelets 237 Normal (applies MEDGEN (St [#/area] in x10E3/uL to non-numeric Juan C's Blood by results) [facility], ) Microscopy high power field RDW 17.5 % Above high normal [facility] ([facility], ) Lymphs 20 % Normal (applies MEDGEN (St to non-numeric Juan C's results) [facility], ) Neutrophils [#] 53 % Normal (applies MEDGEN ( St in Body fluid by to non-numeric [facility]'s Manual count results) [facility], ) Monocytes 13 % Normal (applies MEDGEN (St [#/volume] in to non-numeric [facility]'s Cord blood results) [facility], ) Basos 1 % Normal (applies MEDGEN (St to non-numeric Juan C's results) [facility], ) Eos 12 % Normal (applies MEDGEN (St to non-numeric Juan C's results) [facility], ) Lymphs 2.4 Normal (applies MEDGEN (St (Absolute) x10E3/uL to non-numeric Juan C's results) [facility], ) Neutrophils 6.2 Normal (applies MEDGEN (St (Absolute) x10E3/uL to non-numeric Juan C's results) [facility], ) Eos (Absolute) 1.5 Above high normal MEDGEN (St x10E3/uL [facility], ) Monocytes(Absolu 1.5 Above high normal MEDGE N (St te) x10E3/uL [facility], ) Baso (Absolute) 0.1 Normal (applies MEDGEN ( St x10E3/uL to non-numeric [facility] C's results) [facility], ) Immature 1 % Normal (applies MEDGEN (St Granulocytes to non-numeric Juan C's results) [facility]) Immature Grans 0.2 Above high normal MEDGEN (St (Abs) x10E3/uL [facility], ) Hematology Note: Normal (applies MEDGEN (St Comments: to non-numeric Juan C's results) [facility], ) Leukocytes 9.5 Normal (applies MEDGEN (St [#/volume] in x10E3/uL to non-numeric Juan C's Blood by results) [facility], ) Automated count Hemoglobin 10.9 Below low normal MEDGEN (St [Mass/volume] in g/dL [facility] Blood [facility], ) Erythrocytes 3.28 Below low normal MEDGEN (St [#/volume] in x10E6/uL [facility] Blood by [facility], ) Automated count Hematocrit 32.1 % Below low normal MEDGEN (St [Volume Juan C's Fraction] of [facility], ) Blood by Automated count MCV 98 fL Above high normal MEDGEN ([facility], ) MCH 33.2 pg Above high normal [facility] ([facility], ) RDW 17.3 % Above high normal [facility] ([facility], ) MCHC 34.0 Normal (applies [facility]GEN (St g/dL to non-numeric Juan C's results) [facility]) Platelets 240 Normal (applies MEDGEN (St [#/area] in x10E3/uL to non-numeric Juan C's Blood by results) [facility]) Microscopy high power field Neutrophils [#] 53 % Normal (applies MEDGEN ( St in Body fluid by to non-numeric Juan C's Manual count results) [facility]) Lymphs 19 % Normal (applies MEDGEN (St to non-numeric Juan C's results) [facility]) Monocytes 15 % Normal (applies MEDGEN (St [#/volume] in to non-numeric Juan C's Cord blood results) [facility]) Basos 0 % Normal (applies MEDGEN (St to non-numeric Juan C's results) [facility]) Eos 11 % Normal (applies MEDGEN (St to non-numeric Juan C's results) [facility]) Lymphs 1.8 Normal (applies MEDGEN (St (Absolute) x10E3/uL to non-numeric Juan C's results) [facility]) Neutrophils 5.1 Normal (applies MEDGEN (St (Absolute) x10E3/uL to non-numeric Juan C's results) [facility]) Monocytes(Absolu 1.5 Above high normal MEDGE N (St te) x10E3/uL [facility]) Eos (Absolute) 1.0 Above high normal MEDGEN (St x10E3/uL [facility], ) Baso (Absolute) 0.0 Normal (applies MEDGEN ( St x10E3/uL to non-numeric Juan C's results) [facility]) Immature Grans 0.2 Above high normal MEDGEN (St (Abs) x10E3/uL [facility]'s [facility]) Immature 2 % Normal (applies MEDGEN (St Granulocytes to non-numeric Juan C's results) [facility]) Hematology Note: Normal (applies MEDGEN (St Comments: to non-numeric Juan C's results) [facility]) ID Date Data Source [id number] 08/27/2019 12:00:00 AM EST [facility] ([facility], ) Name Value Range Interpretation Description Data Sup porting Code Source(s) Document(s ) No Urine Test not Normal (applies to MEDGEN (St Received performed non-numeric Juan C's . results) [facility], ) ID Date Data Source [id number] 08/27/2019 12:00:00 AM EST MEDGEN ([facility], ) Name Value Range Interpretation Description Data Sup porting Code Source(s) Document(s ) Vitamin D, 42.8 Normal (applies to MEDGEN (St 25-Hydroxy ng/mL non-numeric Juan C's results) [facility], ) ID Date Data Source [id number] 08/27/2019 12:00:00 AM EST [facility] ([facility], ) Name Value Range Interpretation Description Data Sup porting Code Source(s) Document(s ) Hemoglobin 6.2 % Above high normal MEDGEN (St A1c/Hemoglobin. Juan C's total in Blood [facility], ) ID Date Data Source [id number] 08/27/2019 12:00:00 AM EST [facility] ([facility], ) Name Value Range Interpretation Description Data Sup porting Code Source(s) Document(s ) Vitamin B12 385 pg/mL Normal (applies to MEDGEN (S t non-numeric Juan C's results) [facility], ) Folate 10.5 Normal (applies to MEDGEN (St (Folic ng/mL non-numeric Juan C's Acid), Serum results) [facility], ) ID Date Data Source [id number] 08/27/2019 12:00:00 AM EST MEDGEN ([facility], ) Name Value Range Interpretation Description Data Sup porting Code Source(s) Document(s ) Cholesterol 80 mg/dL Below low normal MEDGEN (St [Mass/volume] in Juan C's Serum or Plasma [facility], ) Triglyceride 200 Above high normal MEDGEN (S t [Mass/volume] in mg/dL Juan C's Serum or Plasma [facility], ) HDL Cholesterol 25 mg/dL Below low normal [facility] ([facility], ) VLDL Cholesterol 40 mg/dL Normal (applies MEDGEN (St Nils to non-numeric Juan C's results) [facility], ) LDL Cholesterol 15 mg/dL Normal (applies MEDGEN ( St Calc to non-numeric Juan C's results) [facility], ) ID Date Data Source [id number] 08/27/2019 12:00:00 AM EST MEDGEN ([facility], ) Name Value Range Interpretation Description [...] results) Medical, ) ID Date Data Source [id number] 08/27/2019 12:00:00 AM EST MEDGEN ([facility], ) Name Value Range Interpretation Description Data Sup porting Code Source(s) Document(s ) Glucose 87 mg/dL Normal (applies MEDGEN (St [Mass/volume] in to non-numeric Juan C's Urine collected for results) [facility], unspecified ) duration Urea nitrogen 36 mg/dL Above high MEDGEN (St [Mass/volume] in normal Juan C's Serum or Plasma Medical, ) eGFR If NonAfricn 21 Below low normal MEDGE N (St Am mL/min/1 Juan C's .73 [facility], ) Creatinine 2.81 Above high MEDGEN (St [Interpretation] in mg/dL normal Juan C's Urine [facility], ) eGFR If Africn Am 24 Below low normal MEDGE N (St mL/min/1 Juan [facility]'s .73 [facility], ) BUN/Creatinine 13 Normal (applies MEDGEN [...] non-numeric Juan C's Serum or Plasma results) [facility], ) Carbon dioxide, 20 Normal (applies MEDGEN ( St total mmol/L to non-numeric Juan C's [Moles/volume] in results) Medical, Serum or Plasma [facility]) Calcium 9.8 Normal (applies MEDGEN (St [Moles/volume] in mg/dL to non-numeric Juan C's Urine collected for results) [facility], unspecified ) duration Protein 9.0 g/dL Above high MEDGEN (St [Mass/volume] in normal Juan C's Serum or Plasma [facility], ) Microalbumin 4.2 g/dL Normal (applies MEDGEN (St [Mass/time] in to non-numeric Juan C's Urine collected for results) [facility], unspecified ) duration Globulin, Total 4.8 g/dL Above high MEDGEN (St normal [facility], ) A/G Ratio 0.9 Below low normal [facility] ([facility], ) Bilirubin.total 0.3 Normal (applies MEDGEN ( St [Mass/volume] in mg/dL to non-numeric Juan C's Serum or Plasma results) [facility], ) Alkaline 53 IU/L Normal (applies [...] Serum or Plasma ID Date Data Source [id number] 08/27/2019 12:00:00 AM EST MEDGEN (St [facility], ) Name Value Range Interpretation Description Data Sup porting Code Source(s) Document(s ) Leukocytes 11.8 Above high normal MEDGEN (St [#/volume] in x10E3/uL Juan C's Blood by [facility], ) Automated count Erythrocytes 3.28 Below low normal MEDGEN (St [#/volume] in x10E6/uL Juan C's Blood by [facility], ) Automated count Hemoglobin 10.8 Below low normal MEDGEN (St [Mass/volume] in g/dL Juan C's Blood [facility], ) MCV 97 fL Normal (applies MEDGEN (St to non-numeric Juan C's results) [facility], ) Hematocrit 31.7 % Below low normal [facility] (St [Volume Juan C's Fraction] of [facility], ) Blood by Automated count MCH 32.9 pg Normal (applies MEDGEN (St to non-numeric Juan C's results) [facility], ) MCHC 34.1 Normal (applies MEDGEN (St g/dL to non-numeric Juan C's results) [facility], ) RDW 17.5 % Above high normal [facility] ([facility], ) Neutrophils [#] 53 % Normal (applies MEDGEN ( St in Body fluid by to non-numeric Juan C's Manual count results) [facility], ) Platelets 237 Normal (applies MEDGEN (St [#/area] in x10E3/uL to non-numeric Juan C's Blood by results) [facility], ) Microscopy high power field Lymphs 20 % Normal (applies MEDGEN (St to non-numeric Juan C's results) [facility], ) Monocytes 13 % Normal (applies MEDGEN (St [#/volume] in to non-numeric Juan C's Cord blood results) [facility], ) Eos 12 % Normal (applies MEDGEN (St to non-numeric Juna C's results) [facility], ) Neutrophils 6.2 Normal (applies MEDGEN (St (Absolute) x10E3/uL to non-numeric Juan C's results) [facility], ) Basos 1 % Normal (applies MEDGEN (St to non-numeric Juan C's results) [facility], ) Lymphs 2.4 Normal (applies MEDGEN (St (Absolute) x10E3/uL to non-numeric Juan C's results) [facility], ) Monocytes(Absolu 1.5 Above high normal MEDGE N (St te) x10E3/uL [facility], ) Baso (Absolute) 0.1 Normal (applies MEDGEN ( St x10E3/uL to non-numeric Juan C's results) [facility], ) Eos (Absolute) 1.5 Above high normal [facility] (St x10E3/uL [facility], ) Immature 1 % Normal (applies MEDGEN (St Granulocytes to non-numeric Juan C's results) [facility], ) Immature Grans 0.2 Above high normal [facility]GEN (St (Abs) x10E3/uL [facility], ) Hematology Note: Normal (applies MEDGEN (St Comments: to non-numeric Juan C's results) [facility], ) ID Date Data Source [id number] 08/27/2019 12:00:00 AM EST [facility] ([facility], ) Name Value Range Interpretation Code Description Data Lisa rce(s) Supporting Document(s ) TSH 3.560 Normal (applies to [facility]GEN (St uIU/mL non-numeric Juan C's results) Medical, ) T4,Free(D 1.22 ng/dL Normal (applies to MEDGEN (St irect) non-numeric Juan C's results) Medical, ) ID Date Data Source [id number] 08/27/2019 12:00:00 AM EST [facility] ([facility], ) Name Value Range Interpretation Description Data Sup porting Code Source(s) Document(s ) No Urine Test not Normal (applies to MEDGEN (St Received performed non-numeric Juan C's . results) [facility], ) ID Date Data Source [id number] 08/27/2019 12:00:00 AM EST [facility] ([facility], ) Name Value Range Interpretation Description Data Sup porting Code Source(s) Document(s ) Vitamin D, 42.8 Normal (applies to MEDGEN (St 25-Hydroxy ng/mL non-numeric Juan C's results) [facility], ) ID Date Data Source [id number] 08/27/2019 12:00:00 AM EST [facility] ([facility], ) Name Value Range Interpretation Description Data Sup porting Code Source(s) Document(s ) Hemoglobin 6.2 % Above high normal MEDGEN (St A1c/Hemoglobin. Juan C's total in Blood [facility], ) ID Date Data Source [id number] 08/27/2019 12:00:00 AM EST [facility] ([facility], ) Name Value Range Interpretation Description Data Sup porting Code Source(s) Document(s ) Vitamin B12 385 pg/mL Normal (applies to MEDGEN (S t non-numeric Juan C's results) Medical, ) Folate 10.5 Normal (applies to MEDGEN (St (Folic ng/mL non-numeric Juan C's Acid), Serum results) [facility], ) ID Date Data Source [id number] 08/27/2019 12:00:00 AM EST MEDGEN ([facility]) Name Value Range Interpretation Description Data Sup porting Code Source(s) Document(s ) Cholesterol 80 mg/dL Below low normal MEDGEN (St [Mass/volume] in Juan C's Serum or Plasma [facility], ) Triglyceride 200 Above high normal MEDGEN (S t [Mass/volume] in mg/dL [facility]'s Serum or Plasma [facility], ) HDL Cholesterol 25 mg/dL Below low normal MEDGEN ([facility], ) VLDL Cholesterol 40 mg/dL Normal (applies MEDGEN (St Nils to non-numeric Juan C's results) Medical, ) LDL Cholesterol 15 mg/dL Normal (applies MEDGEN ( St Calc to non-numeric Juan C's results) [facility], ) ID Date Data Source [id number] 08/27/2019 12:00:00 AM EST MEDGEN ([facility], ) Name Value Range Interpretation Description [...] results) Medical, ) ID Date Data Source [id number] 08/27/2019 12:00:00 AM EST MEDGEN ([facility]) Name Value Range Interpretation Description Data Sup porting Code Source(s) Document(s ) Glucose 87 mg/dL Normal (applies MEDGEN (St [Mass/volume] in to non-numeric Juan C's Urine collected for results) [facility]) duration Urea nitrogen 36 mg/dL Above high MEDGEN (St [Mass/volume] in normal Juan C's Serum or Plasma [facility], ) Creatinine 2.81 Above high MEDGEN (St [Interpretation] in mg/dL normal Juan C's Urine [facility], ) eGFR If NonAfricn 21 Below low normal MEDGE N (St Am mL/min/[address], ) BUN/Creatinine 13 Normal (applies MEDGEN (S t Ratio to non-numeric Juan C's results) [facility], ) eGFR If Africn Am 24 Below low normal MEDGE N (St mL/min/[address], ) Sodium 135 Normal (applies MEDGEN (St [Moles/volume] in mmol/L to non-numeric Juan C's Serum or Plasma results) [facility], ) Potassium 4.1 Normal (applies MEDGEN (St [Mass/volume] in mmol/L to non-numeric Juan C's Blood results) [facility], ) Chloride 102 Normal (applies MEDGEN (St [Moles/volume] in mmol/L to non-numeric Juan C's Serum or Plasma results) [facility], ) Carbon dioxide, 20 Normal (applies MEDGEN ( St total mmol/L to non-numeric Juan C's [Moles/volume] in results) Medical, Serum or Plasma [facility]) Calcium 9.8 Normal (applies MEDGEN (St [Moles/volume] in mg/dL to non-numeric Juan C's Urine collected for results) [facility], unspecified [facility]) duration Protein 9.0 g/dL Above high MEDGEN (St [Mass/volume] in normal Juan C's Serum or Plasma [facility], ) Microalbumin 4.2 g/dL Normal (applies MEDGEN (St [Mass/time] in to non-numeric Juan C's Urine collected for results) [facility], unspecified ) duration Globulin, Total 4.8 g/dL Above high MEDGEN (St normal [facility], ) A/G Ratio 0.9 Below low normal [facility] ([facility], ) Bilirubin.total 0.3 Normal (applies MEDGEN ( St [Mass/volume] in mg/dL to non-numeric Juan C's Serum or Plasma results) [facility], ) Alkaline 53 IU/L Normal (applies MEDGEN (St phosphatase to non-numeric Juan C's [Enzymatic results) [facility], activity/volume] in PC) Serum, Plasma or Blood Alanine 20 IU/L Normal (applies MEDGEN (St aminotransferase to non-numeric Juan C's [Enzymatic results) Medical, activity/volume] in ) Serum or Plasma Aspartate 22 IU/L Normal (applies MEDGEN (St aminotransferase to non-numeric Juan C's [Enzymatic results) Medical, activity/volume] in ) Serum or Plasma ID Date Data Source [id number] 08/27/2019 12:00:00 AM EST [facility] ([facility], ) Name Value Range Interpretation Description Data Sup porting Code Source(s) Document(s ) Leukocytes 11.8 Above high normal MEDGEN (St [#/volume] in x10E3/uL Juan C's Blood by [facility], ) Automated count Erythrocytes 3.28 Below low normal MEDGEN (St [#/volume] in x10E6/uL Juan C's Blood by [facility], ) Automated count Hemoglobin 10.8 Below low normal MEDGEN (St [Mass/volume] in g/dL Juan C's Blood [facility], ) Hematocrit 31.7 % Below low normal MEDGEN (St [Volume Juan C's Fraction] of [facility], ) Blood by Automated count MCV 97 fL Normal (applies MEDGEN (St to non-numeric Juan C's results) [facility], ) MCH 32.9 pg Normal (applies MEDGEN (St to non-numeric Juan C's results) [facility], ) MCHC 34.1 Normal (applies MEDGEN (St g/dL to non-numeric Juan C's results) [facility], ) RDW 17.5 % Above high normal [facility] ([facility], ) Platelets 237 Normal (applies MEDGEN (St [#/area] in x10E3/uL to non-numeric Juan C's Blood by results) [facility], ) Microscopy high power field Neutrophils [#] 53 % Normal (applies MEDGEN ( St in Body fluid by to non-numeric Juan C's Manual count results) [facility], ) Lymphs 20 % Normal (applies MEDGEN (St to non-numeric Juan C's results) [facility]) Monocytes 13 % Normal (applies MEDGEN (St [#/volume] in to non-numeric Juan C's Cord blood results) [facility], ) Eos 12 % Normal (applies MEDGEN (St to non-numeric Juan C's results) [facility], ) Neutrophils 6.2 Normal (applies MEDGEN (St (Absolute) x10E3/uL to non-numeric Juan C's results) [facility], ) Basos 1 % Normal (applies MEDGEN (St to non-numeric Juan C's results) [facility]) Lymphs 2.4 Normal (applies MEDGEN (St (Absolute) x10E3/uL to non-numeric Juan C's results) [facility]) Monocytes(Absolu 1.5 Above high normal MEDGE N (St te) x10E3/uL [facility], ) Eos (Absolute) 1.5 Above high normal MEDGEN (St x10E3/uL [facility], ) Baso (Absolute) 0.1 Normal (applies MEDGEN ( St x10E3/uL to non-numeric Juan C's results) [facility], ) Immature 1 % Normal (applies MEDGEN (St Granulocytes to non-numeric Juan C's results) [facility]) Immature Grans 0.2 Above high normal MEDGEN (St (Abs) x10E3/uL [facility], ) Hematology Note: Normal (applies MEDGEN (St Comments: to non-numeric Juan C's results) [facility]) ID Date Data Source [id number] 08/27/2019 12:00:00 AM EST [facility] ([facility], ) Name Value Range Interpretation Code Description Data Lisa rce(s) Supporting Document(s ) TSH 3.560 Normal (applies to MEDGEN (St uIU/mL non-numeric Juan C's results) [facility], ) T4,Free(D 1.22 ng/dL Normal (applies to MEDGEN (St irect) non-numeric Juan C's results) [facility], ) ID Date Data Source [id number] 08/27/2019 12:00:00 AM EST [facility] ([facility], ) Name Value Range Interpretation Description Data Sup porting Code Source(s) Document(s ) No Urine Test not Normal (applies to MEDGEN (St Received performed non-numeric Juan C's . results) [facility]) ID Date Data Source [id number] 08/27/2019 12:00:00 AM EST [facility] ([facility], ) Name Value Range Interpretation Description Data Sup porting Code Source(s) Document(s ) Vitamin D, 42.8 Normal (applies to MEDGEN (St 25-Hydroxy ng/mL non-numeric Juan C's results) Medical, ) ID Date Data Source [id number] 08/27/2019 12:00:00 AM EST [facility], ) Name Value Range Interpretation Description Data Sup porting Code Source(s) Document(s ) Hemoglobin 6.2 % Above high normal MEDGEN (St A1c/Hemoglobin. Juan C's total in Blood [facility], ) ID Date Data Source [id number] 08/27/2019 12:00:00 AM EST [facility], ) Name Value Range Interpretation Description Data Sup porting Code Source(s) Document(s ) Vitamin B12 385 pg/mL Normal (applies to MEDGEN (S t non-numeric Juan C's results) Medical, ) Folate 10.5 Normal (applies to MEDGEN (St (Folic ng/mL non-numeric Juan C's Acid), Serum results) Medical, ) ID Date Data Source [id number] 08/27/2019 12:00:00 AM EST [facility] ([facility], ) Name Value Range Interpretation Description Data Sup porting Code Source(s) Document(s ) No Urine Test not Normal (applies to MEDGEN (St Received performed non-numeric Juan C's . results) Medical, ) ID Date Data Source [id number] 08/27/2019 12:00:00 AM EST [facility] ([facility], ) Name Value Range Interpretation Description Data Sup porting Code Source(s) Document(s ) Vitamin D, 42.8 Normal (applies to MEDGEN (St 25-Hydroxy ng/mL non-numeric Juan C's results) Medical, ) ID Date Data Source [id number] 08/27/2019 12:00:00 AM EST [facility], ) Name Value Range Interpretation Description Data Sup porting Code Source(s) Document(s ) Hemoglobin 6.2 % Above high normal MEDGEN (St A1c/Hemoglobin. Juan C's total in Blood [facility], ) ID Date Data Source [id number] 08/27/2019 12:00:00 AM EST [facility] ([facility], ) Name Value Range Interpretation Description Data Sup porting Code Source(s) Document(s ) Vitamin B12 385 pg/mL Normal (applies to MEDGEN (S t non-numeric Juan C's results) Medical, ) Folate 10.5 Normal (applies to MEDGEN (St (Folic ng/mL non-numeric Juan C's Acid), Serum results) [facility], ) ID Date Data Source [id number] 08/27/2019 12:00:00 AM EST MEDGEN ([facility]) Name Value Range Interpretation Description Data Sup porting Code Source(s) Document(s ) Cholesterol 80 mg/dL Below low normal MEDGEN (St [Mass/volume] in Juan C's Serum or Plasma [facility], ) Triglyceride 200 Above high normal MEDGEN (S t [Mass/volume] in mg/dL Juan C's Serum or Plasma [facility], ) HDL Cholesterol 25 mg/dL Below low normal MEDGEN ([facility], ) VLDL Cholesterol 40 mg/dL Normal (applies MEDGEN (St Nils to non-numeric Juan C's results) [facility], ) LDL Cholesterol 15 mg/dL Normal (applies MEDGEN ( St Calc to non-numeric Juan C's results) [facility], ) ID Date Data Source [id number] 08/27/2019 12:00:00 AM EST MEDGEN ([facility]) Name Value Range Interpretation Description Data Sup porting Code Source(s) Document(s ) Specific gravity Test not Normal (applies MEDGEN (St of Pericardial performe to non-numeric Juan C's fluid by d. results) [facility], ) Refractometry Protein Test not Normal (applies MEDGEN (St [Mass/volume] in performe to non-numeric Juan C's Lower d. results) Medical, ) respiratory specimen pH of Lower Test not Normal (applies MEDGEN (St respiratory performe to non-numeric Juan C's specimen d. results) [facility], ) Glucose Test not Normal (applies MEDGEN (St [Mass/volume] in performe to non-numeric Juan C's Urine collected d. results) [facility], ) for unspecified duration Ketones Test not Normal (applies MEDGEN (St [Presence] in performe to non-numeric Juan C's Blood by Tablet d. results) [facility], ) ID Date Data Source [id number] 08/27/2019 12:00:00 AM EST MEDGEN ([facility]) Name Value Range Interpretation Description Data Sup porting Code Source(s) Document(s ) Glucose 87 mg/dL Normal (applies MEDGEN (St [Mass/volume] in to non-numeric Juan C's Urine collected for results) Medical, unspecified ) duration Urea nitrogen 36 mg/dL Above high MEDGEN (St [Mass/volume] in normal Juan C's Serum or Plasma [facility], ) Creatinine 2.81 Above high MEDGEN (St [Interpretation] in mg/dL normal Juan C's Urine [facility], ) eGFR If NonAfricn 21 Below low normal MEDGE N (St Am mL/min/1 [facility]'s [address], ) eGFR If Africn Am 24 Below low normal MEDGE N (St mL/min/1 [facility]'s .73 [facility], ) BUN/Creatinine 13 Normal (applies MEDGEN (S t Ratio to non-numeric Juan C's results) [facility], ) Sodium 135 Normal (applies MEDGEN (St [Moles/volume] in mmol/L to non-numeric Juan C's Serum or Plasma results) Medical, ) Potassium 4.1 Normal (applies MEDGEN (St [Mass/volume] in mmol/L to non-numeric Juan C's Blood results) [facility], ) Chloride 102 Normal (applies MEDGEN (St [Moles/volume] in mmol/L to non-numeric Juan C's Serum or Plasma results) [facility], ) Carbon dioxide, 20 Normal (applies MEDGEN ( St total mmol/L to non-numeric Juan C's [Moles/volume] in results) Medical, Serum or Plasma [facility]) Calcium 9.8 Normal (applies MEDGEN (St [Moles/volume] in mg/dL to non-numeric Juan C's Urine collected for results) Medical, unspecified [facility]) duration Protein 9.0 g/dL Above high MEDGEN (St [Mass/volume] in normal Juan C's Serum or Plasma [facility], ) Microalbumin 4.2 g/dL Normal (applies MEDGEN (St [Mass/time] in to non-numeric Juan C's Urine collected for results) Medical, unspecified [facility]) duration A/G Ratio 0.9 Below low normal [facility] ([facility], ) Globulin, Total 4.8 g/dL Above high MEDGEN (St normal [facility], ) Bilirubin.total 0.3 Normal (applies MEDGEN ( St [Mass/volume] in mg/dL to non-numeric Juan C's Serum or Plasma results) [facility], ) Alkaline 53 IU/L Normal (applies [...] Serum or Plasma ID Date Data Source [id number] 08/27/2019 12:00:00 AM EST [facility] ([facility], ) Name Value Range Interpretation Description Data Sup porting Code Source(s) Document(s ) Leukocytes 11.8 Above high normal MEDGEN (St [#/volume] in x10E3/uL Juan C's Blood by [facility], ) Automated count Hemoglobin 10.8 Below low normal MEDGEN (St [Mass/volume] in g/dL [facility]'s Blood [facility], ) Erythrocytes 3.28 Below low normal MEDGEN (St [#/volume] in x10E6/uL Juan [facility]'s Blood by Medical, ) Automated count Hematocrit 31.7 % Below low normal MEDGEN (St [Volume Juan C's Fraction] of Medical, ) Blood by Automated count MCV 97 fL Normal (applies MEDGEN (St to non-numeric Juan C's results) [facility], ) MCH 32.9 pg Normal (applies MEDGEN (St to non-numeric Juan C's results) Medical, ) MCHC 34.1 Normal (applies MEDGEN (St g/dL to non-numeric Juan C's results) Medical, ) Platelets 237 Normal (applies MEDGEN (St [#/area] in x10E3/uL to non-numeric Juan C's Blood by results) Medical, ) Microscopy high power field RDW 17.5 % Above high normal [facility] ([facility], ) Neutrophils [#] 53 % Normal (applies MEDGEN ( St in Body fluid by to non-numeric Juan C's Manual count results) Medical, ) Lymphs 20 % Normal (applies [facility]GEN (St to non-numeric Juan C's results) Medical, ) Monocytes 13 % Normal (applies [facility]GEN (St [#/volume] in to non-numeric Juan C's Cord blood results) Medical, ) Eos 12 % Normal (applies [facility]GEN (St to non-numeric Juan C's results) [facility], ) Basos 1 % Normal (applies MEDGEN (St to non-numeric Juan C's results) [facility]) Neutrophils 6.2 Normal (applies MEDGEN (St (Absolute) x10E3/uL to non-numeric Juan C's results) [facility], ) Monocytes(Absolu 1.5 Above high normal MEDGE N (St te) x10E3/uL Juan C's [facility], ) Lymphs 2.4 Normal (applies MEDGEN (St (Absolute) x10E3/uL to non-numeric Juan C's results) [facility], ) Eos (Absolute) 1.5 Above high normal [facility] (St x10E3/uL [facility]'s [facility], ) Baso (Absolute) 0.1 Normal (applies MEDGEN ( St x10E3/uL to non-numeric Juan C's results) [facility], ) Immature 1 % Normal (applies [facility]GEN (St Granulocytes to non-numeric Juan C's results) [facility], ) Immature Grans 0.2 Above high normal [facility]GEN (St (Abs) x10E3/uL [facility], ) Hematology Note: Normal (applies MEDGEN (St Comments: to non-numeric Juan C's results) [facility], ) ID Date Data Source [id number] 08/27/2019 12:00:00 AM EST MED[facility] ([facility], ) Name Value Range Interpretation Code Description Data Lisa rce(s) Supporting Document(s ) TSH 3.560 Normal (applies to [facility]GEN (St uIU/mL non-numeric Juan C's results) [facility], ) T4,Free(D 1.22 ng/dL Normal (applies to [facility]GEN (St irect) non-numeric Juan C's results) [facility], ) ID Date Data Source [id number] 08/27/2019 12:00:00 AM EST [facility] (St [facility], ) Name Value Range Interpretation Description Data Sup porting Code Source(s) Document(s ) No Urine Test not Normal (applies to MEDGEN (St Received performed non-numeric Juan C's . results) [facility], ) ID Date Data Source [id number] 08/27/2019 12:00:00 AM EST [facility] ([facility], ) Name Value Range Interpretation Description Data Sup porting Code Source(s) Document(s ) Vitamin D, 42.8 Normal (applies to MEDGEN (St 25-Hydroxy ng/mL non-numeric Juan C's results) [facility], ) ID Date Data Source [id number] 08/27/2019 12:00:00 AM EST MED[facility] (St [facility], ) Name Value Range Interpretation Description Data Sup porting Code Source(s) Document(s ) Hemoglobin 6.2 % Above high normal [facility]GEN (St A1c/Hemoglobin. Juan C's total in Blood Medical, ) ID Date Data Source [id number] 08/27/2019 12:00:00 AM EST [facility] ([facility], ) Name Value Range Interpretation Description Data Sup porting Code Source(s) Document(s ) Vitamin B12 385 pg/mL Normal (applies to MEDGEN (S t non-numeric Juan C's results) Medical, ) Folate 10.5 Normal (applies to [facility]GEN (St (Folic ng/mL non-numeric Juan C's Acid), Serum results) [facility], ) ID Date Data Source [id number] 08/27/2019 12:00:00 AM EST MED[facility] ([facility], ) Name Value Range Interpretation Description Data Sup porting Code Source(s) Document(s ) Triglyceride 200 Above high normal MEDGEN (S t [Mass/volume] in mg/dL Juan C's Serum or Plasma [facility], ) Cholesterol 80 mg/dL Below low normal [facility] (St [Mass/volume] in Juan C's Serum or Plasma [facility], ) HDL Cholesterol 25 mg/dL Below low normal [facility] ([facility], ) VLDL Cholesterol 40 mg/dL Normal (applies [facility] (St Nils to non-numeric Juan C's results) [facility], ) LDL Cholesterol 15 mg/dL Normal (applies [facility]GEN ( St Calc to non-numeric Juan C's results) [facility], ) ID Date Data Source [id number] 08/27/2019 12:00:00 AM EST MED[facility] ([facility], ) Name Value Range Interpretation Description [...] results) Medical, ) ID Date Data Source [id number] 08/27/2019 12:00:00 AM EST [facility] ([facility], ) Name Value Range Interpretation Description [...] .73 [facility], ) eGFR If Africn Am 24 Below low normal MEDGE N (St mL/min/1 Juan C's .73 [facility], ) BUN/Creatinine 13 Normal (applies MEDGEN (S t Ratio to non-numeric Juan C's results) Medical, ) Potassium 4.1 Normal (applies [facility] (St [Mass/volume] in mmol/L to non-numeric Juan C's Blood results) Medical, ) Sodium 135 Normal (applies [...] non-numeric Juan C's Urine collected for results) [facility], unspecified ) duration Microalbumin 4.2 g/dL Normal (applies [facility] (St [Mass/time] in to non-numeric Juan C's Urine collected for results) [facility], unspecified ) duration Protein 9.0 g/dL Above high MEDGEN (St [Mass/volume] in normal Juan C's Serum or Plasma [facility], ) Globulin, Total 4.8 g/dL Above high MEDGEN (St normal [facility], ) A/G Ratio 0.9 Below low normal [facility] ([facility], ) Bilirubin.total 0.3 Normal (applies MEDGEN ( St [Mass/volume] in mg/dL to non-numeric Juan C's Serum or Plasma results) [facility], ) Aspartate 22 IU/L Normal (applies [facility]GEN (St aminotransferase to non-numeric Juan C's [Enzymatic results) Medical, activity/volume] in ) Serum or Plasma Alkaline 53 IU/L Normal (applies [facility] (St phosphatase to non-numeric Juan C's [Enzymatic results) Medical, activity/volume] in PC) Serum, Plasma or Blood Alanine 20 IU/L Normal (applies MEDGEN (St aminotransferase to non-numeric Juan C's [Enzymatic results) Medical, activity/volume] in PC) Serum or Plasma ID Date Data Source [id number] 08/27/2019 12:00:00 AM EST [facility] ([facility], ) Name Value Range Interpretation Description Data Sup porting Code Source(s) Document(s ) Leukocytes 11.8 Above high normal MEDGEN (St [#/volume] in x10E3/uL Juan C's Blood by [facility], ) Automated count Erythrocytes 3.28 Below low normal [facility] (St [#/volume] in x10E6/uL Juan C's Blood by [facility], ) Automated count Hemoglobin 10.8 Below low normal [facility]GEN (St [Mass/volume] in g/dL Juan C's Blood [facility], ) Hematocrit 31.7 % Below low normal [facility]GEN (St [Volume Juan C's Fraction] of [facility], ) Blood by Automated count MCV 97 fL Normal (applies [facility] (St to non-numeric Juan C's results) [facility], ) MCH 32.9 pg Normal (applies [facility]GEN (St to non-numeric Juan C's results) [facility], ) MCHC 34.1 Normal (applies [facility]GEN (St g/dL to non-numeric Juan C's results) [facility], ) RDW 17.5 % Above high normal [facility] ([facility], ) Platelets 237 Normal (applies MEDGEN (St [#/area] in x10E3/uL to non-numeric Juan C's Blood by results) [facility], ) Microscopy high power field Neutrophils [#] 53 % Normal (applies MEDGEN ( St in Body fluid by to non-numeric Juan C's Manual count results) [facility], ) Lymphs 20 % Normal (applies [facility]GEN (St to non-numeric Juan C's results) [facility], ) Monocytes 13 % Normal (applies [facility]GEN (St [#/volume] in to non-numeric Juan C's Cord blood results) [facility], ) Eos 12 % Normal (applies [facility]GEN (St to non-numeric Juan C's results) [facility], ) Basos 1 % Normal (applies [facility]GEN (St to non-numeric Juan C's results) [facility], ) Neutrophils 6.2 Normal (applies [facility]GEN (St (Absolute) x10E3/uL to non-numeric Juan C's results) [facility], ) Lymphs 2.4 Normal (applies [facility]GEN (St (Absolute) x10E3/uL to non-numeric Juan C's results) [facility], ) Monocytes(Absolu 1.5 Above high normal MEDGE N (St te) x10E3/uL [facility], ) Baso (Absolute) 0.1 Normal (applies [facility] ( St x10E3/uL to non-numeric Juan C's results) [facility], ) Eos (Absolute) 1.5 Above high normal [facility] (St x10E3/uL [facility], ) Immature 1 % Normal (applies [facility]GEN (St Granulocytes to non-numeric Juan C's results) [facility], ) Immature Grans 0.2 Above high normal [facility] (St (Abs) x10E3/uL [facility], ) Hematology Note: Normal (applies [facility]GEN (St Comments: to non-numeric Juan C's results) [facility], ) ID Date Data Source [id number] 08/27/2019 12:00:00 AM EST [facility] ([facility], ) Name Value Range Interpretation Code Description Data Lisa rce(s) Supporting Document(s ) TSH 3.560 Normal (applies to [facility] (St uIU/mL non-numeric Juan C's results) Medical, ) T4,Free(D 1.22 ng/dL Normal (applies to [facility]GEN (St irect) non-numeric Juan C's results) Medical, ) ID Date Data Source [id number] 08/27/2019 12:00:00 AM EST [facility] ([facility], ) Name Value Range Interpretation Description Data Sup porting Code Source(s) Document(s ) No Urine Test not Normal (applies to MEDGEN (St Received performed non-numeric Juan C's . results) Medical, ) ID Date Data Source [id number] 08/27/2019 12:00:00 AM EST [facility] ([facility], ) Name Value Range Interpretation Description Data Sup porting Code Source(s) Document(s ) Vitamin D, 42.8 Normal (applies to [facility] (St 25-Hydroxy ng/mL non-numeric Juan C's results) Medical, ) ID Date Data Source [id number] 08/27/2019 12:00:00 AM EST [facility] ([facility], ) Name Value Range Interpretation Description Data Sup porting Code Source(s) Document(s ) Hemoglobin 6.2 % Above high normal [facility]GEN (St A1c/Hemoglobin. Juan C's total in Blood [facility], ) ID Date Data Source [id number] 08/27/2019 12:00:00 AM EST [facility] (St [facility], ) Name Value Range Interpretation Description Data Sup porting Code Source(s) Document(s ) Vitamin B12 385 pg/mL Normal (applies to MEDGEN (S t non-numeric Juan C's results) Medical, ) Folate 10.5 Normal (applies to [facility]GEN (St (Folic ng/mL non-numeric Juan C's Acid), Serum results) [facility], ) ID Date Data Source [id number] 08/27/2019 12:00:00 AM EST [facility] ([facility], ) Name Value Range Interpretation Description Data Sup porting Code Source(s) Document(s ) Cholesterol 80 mg/dL Below low normal [facility]GEN (St [Mass/volume] in Juan C's Serum or Plasma [facility], ) Triglyceride 200 Above high normal [facility]GEN (S t [Mass/volume] in mg/dL Juan C's Serum or Plasma [facility], ) HDL Cholesterol 25 mg/dL Below low normal [facility] ([facility], ) VLDL Cholesterol 40 mg/dL Normal (applies [facility]GEN (St Nils to non-numeric Juan C's results) [facility], ) LDL Cholesterol 15 mg/dL Normal (applies [facility]GEN ( St Calc to non-numeric Juan C's results) [facility], ) ID Date Data Source [id number] 08/27/2019 12:00:00 AM EST MEDGEN ([facility], ) Name Value Range Interpretation Description Data Sup porting Code Source(s) Document(s ) Specific gravity Test not Normal (applies MEDGEN (St of Pericardial performe to non-numeric Juan C's fluid by d. results) Medical, ) Refractometry pH of Lower Test not Normal (applies [facility]GEN (St respiratory performe to non-numeric Juan C's specimen d. results) [facility], ) Protein Test not Normal (applies [facility]GEN (St [Mass/volume] in performe to non-numeric Juan C's Lower d. results) [facility], ) respiratory specimen Glucose Test not Normal (applies [facility]GEN (St [Mass/volume] in performe to non-numeric Juan C's Urine collected d. results) [facility], ) for unspecified duration Ketones Test not Normal (applies MEDGEN (St [Presence] in performe to non-numeric Juan C's Blood by Tablet d. results) [facility], ) ID Date Data Source [id number] 08/27/2019 12:00:00 AM EST MEDGEN ([facility], ) Name Value Range Interpretation Description Data Sup porting Code Source(s) Document(s ) Glucose 87 mg/dL Normal (applies MEDGEN (St [Mass/volume] in to non-numeric Juan C's Urine collected for results) [facility] ) duration Urea nitrogen 36 mg/dL Above high MEDGEN (St [Mass/volume] in normal Juan C's Serum or Plasma [facility], ) Creatinine 2.81 Above high MEDGEN (St [Interpretation] in mg/dL normal Juan C's Urine [facility], ) eGFR If NonAfricn 21 Below low normal MEDGE N (St Am mL/min/1 Juan C's .73 [facility], ) eGFR If Africn Am 24 Below low normal MEDGE N (St mL/min/1 Juan C's .73 Medical, ) BUN/Creatinine 13 Normal (applies MEDGEN [...] Ratio 0.9 Below low normal [facility] ([facility], ) Bilirubin.total 0.3 Normal (applies MEDGEN ( [...] Serum or Plasma ID Date Data Source [id number] 08/27/2019 12:00:00 AM EST [facility] ([facility], ) Name Value Range Interpretation Description Data Sup porting Code Source(s) Document(s ) Leukocytes 11.8 Above high normal MEDGEN (St [#/volume] in x10E3/uL Juan C's Blood by [facility], ) Automated count Erythrocytes 3.28 Below low normal MEDGEN (St [#/volume] in x10E6/uL Juan C's Blood by [facility], ) Automated count Hemoglobin 10.8 Below low normal [facility]GEN (St [Mass/volume] in g/dL Juan C's Blood [facility], ) Hematocrit 31.7 % Below low normal [facility]GEN (St [Volume Juan C's Fraction] of [facility], ) Blood by Automated count MCV 97 fL Normal (applies [facility]GEN (St to non-numeric Juan C's results) [facility], ) MCH 32.9 pg Normal (applies MEDGEN (St to non-numeric Juan C's results) [facility], ) MCHC 34.1 Normal (applies MEDGEN (St g/dL to non-numeric Juan C's results) [facility], ) RDW 17.5 % Above high normal [facility] ([facility], ) Platelets 237 Normal (applies MEDGEN (St [#/area] in x10E3/uL to non-numeric Juan C's Blood by results) [facility], ) Microscopy high power field Neutrophils [#] 53 % Normal (applies MEDGEN ( St in Body fluid by to non-numeric Juan C's Manual count results) [facility], ) Lymphs 20 % Normal (applies MEDGEN (St to non-numeric Juan C's results) [facility], ) Monocytes 13 % Normal (applies MEDGEN (St [#/volume] in to non-numeric Juan C's Cord blood results) [facility], ) Eos 12 % Normal (applies MEDGEN (St to non-numeric Juan C's results) [facility], ) Basos 1 % Normal (applies MEDGEN (St to non-numeric Juan C's results) [facility], ) Neutrophils 6.2 Normal (applies MEDGEN (St (Absolute) x10E3/uL to non-numeric Juan C's results) [facility], ) Lymphs 2.4 Normal (applies MEDGEN (St (Absolute) x10E3/uL to non-numeric Juan C's results) Medical, ) Monocytes(Absolu 1.5 Above high normal MEDGE N (St te) x10E3/uL [facility], ) Eos (Absolute) 1.5 Above high normal [facility] (St x10E3/uL [facility], ) Baso (Absolute) 0.1 Normal (applies MEDGEN ( St x10E3/uL to non-numeric Juan C's results) Medical, ) Immature 1 % Normal (applies [facility]GEN (St Granulocytes to non-numeric Juna C's results) Medical, ) Immature Grans 0.2 Above high normal MEDGEN (St (Abs) x10E3/uL [facility], ) Hematology Note: Normal (applies MEDGEN (St Comments: to non-numeric Juan C's results) Medical, ) ID Date Data Source [id number] 08/27/2019 12:00:00 AM EST [facility] ([facility], ) Name Value Range Interpretation Code Description Data Lisa rce(s) Supporting Document(s ) TSH 3.560 Normal (applies to [facility]GEN (St uIU/mL non-numeric Juan C's results) Medical, ) T4,Free(D 1.22 ng/dL Normal (applies to MEDGEN (St irect) non-numeric Juan C's results) [facility], ) ID Date Data Source [id number] 08/27/2019 12:00:00 AM EST [facility] ([facility], ) Name Value Range Interpretation Description Data Sup porting Code Source(s) Document(s ) No Urine Test not Normal (applies to MEDGEN (St Received performed non-numeric Juan C's . results) Medical, ) ID Date Data Source [id number] 08/27/2019 12:00:00 AM EST [facility] ([facility], ) Name Value Range Interpretation Description Data Sup porting Code Source(s) Document(s ) Vitamin D, 42.8 Normal (applies to [facility]GEN (St 25-Hydroxy ng/mL non-numeric Juan C's results) Medical, ) Vitamin D, 30.6 Normal (applies to MEDGEN (St 25-Hydroxy ng/mL non-numeric Juan C's results) Medical, ) Vitamin D, 36.2 Normal (applies to MEDGEN (St 25-Hydroxy ng/mL non-numeric Juan C's results) [facility], ) ID Date Data Source [id number] 08/27/2019 12:00:00 AM EST [facility] ([facility], ) Name Value Range Interpretation Description Data Sup porting Code Source(s) Document(s ) Hemoglobin 6.2 % Above high normal MEDGEN (St A1c/Hemoglobin. Juan C's total in Blood [facility], ) ID Date Data Source [id number] 08/27/2019 12:00:00 AM EST MEDGEN ([facility], ) Name Value Range Interpretation Description Data Sup porting Code Source(s) Document(s ) Vitamin B12 385 pg/mL Normal (applies to MEDGEN (S t non-numeric Juan C's results) [facility], ) Folate 10.5 Normal (applies to MEDGEN (St (Folic ng/mL non-numeric Juan C's Acid), Serum results) [facility], ) ID Date Data Source [id number] 08/27/2019 12:00:00 AM EST MEDGEN ([facility], ) Name Value Range Interpretation Description Data Sup porting Code Source(s) Document(s ) Cholesterol 80 mg/dL Below low normal MEDGEN (St [Mass/volume] in Juan C's Serum or Plasma [facility], ) Triglyceride 200 Above high normal MEDGEN (S t [Mass/volume] in mg/dL Juan C's Serum or Plasma [facility], ) HDL Cholesterol 25 mg/dL Below low normal [facility] ([facility], ) VLDL Cholesterol 40 mg/dL Normal (applies MEDGEN (St Nils to non-numeric Juan C's results) [facility], ) LDL Cholesterol 15 mg/dL Normal (applies MEDGEN ( St Calc to non-numeric Juan C's results) [facility], ) ID Date Data Source [id number] 08/27/2019 12:00:00 AM EST [facility] ([facility], ) Name Value Range Interpretation Description Data Sup porting Code Source(s) Document(s ) Specific gravity Test not Normal (applies MEDGEN (St of Pericardial performe to non-numeric Juan C's fluid by d. results) [facility], ) Refractometry pH of Lower Test not Normal (applies MEDGEN (St respiratory performe to non-numeric Juan C's specimen d. results) [facility], ) Protein Test not Normal (applies MEDGEN [...] results) Medical, ) ID Date Data Source [id number] 08/27/2019 12:00:00 AM EST [facility] ([facility], ) Name Value Range Interpretation Description [...] N (St Am mL/min/1 Juan C's .73 [facility], ) eGFR If Africn Am 10 Below low normal MEDGE N (St mL/min/1 Juan C's .73 [facility], ) BUN/Creatinine 10 Normal (applies MEDGEN [...] Ratio 0.8 Below low normal [facility] ([facility], ) Bilirubin.total 0.4 Normal (applies MEDGEN ( St [Mass/volume] in mg/dL to non-numeric Juan C's Serum or Plasma results) [facility], ) Aspartate 43 IU/L Above high [...] in normal Juan C's Serum or Plasma [facility], ) Creatinine 2.81 Above high MEDGEN (St [Interpretation] in mg/dL normal Juan C's Urine [facility], ) eGFR If NonAfricn 21 Below low normal MEDGE N (St Am mL/min/1 Juan C's .73 [facility], ) eGFR If Africn Am 24 Below low normal MEDGE N (St mL/min/1 Juan C's .73 [facility], ) BUN/Creatinine 13 Normal (applies MEDGEN (S t Ratio to non-numeric Juan C's results) Medical, ) Sodium 135 Normal (applies MEDGEN (St [Moles/volume] in mmol/L to non-numeric Juan C's Serum or Plasma results) [facility], ) Potassium 4.1 Normal (applies MEDGEN (St [Mass/volume] in mmol/L to non-numeric Juan C's Blood results) [facility], ) Carbon dioxide, 20 Normal (applies MEDGEN ( St total mmol/L to non-numeric Juan C's [Moles/volume] in results) Medical, Serum or Plasma [facility]) Chloride 102 Normal (applies MEDGEN (St [Moles/volume] in mmol/L to non-numeric Juan C's Serum or Plasma results) [facility], ) Calcium 9.8 Normal (applies MEDGEN (St [Moles/volume] in mg/dL to non-numeric Juan C's Urine collected for results) [facility], unspecified ) duration Protein 9.0 g/dL Above high MEDGEN (St [Mass/volume] in normal Juan C's Serum or Plasma [facility], ) Microalbumin 4.2 g/dL Normal (applies MEDGEN (St [Mass/time] in to non-numeric Juan C's Urine collected for results) [facility], unspecified ) duration Globulin, Total 4.8 g/dL Above high MEDGEN (St normal [facility], ) A/G Ratio 0.9 Below low normal [facility] ([facility], ) Bilirubin.total 0.3 Normal (applies MEDGEN ( St [Mass/volume] in mg/dL to non-numeric Juan C's Serum or Plasma results) [facility], ) Alkaline 53 IU/L Normal (applies [...] Serum or Plasma ID Date Data Source [id number] 08/27/2019 12:00:00 AM EST [facility] ([facility], ) Name Value Range Interpretation Description Data Sup porting Code Source(s) Document(s ) Leukocytes 11.7 Above high normal MEDGEN (St [#/volume] in x10E3/uL Juan C's Blood by [facility], ) Automated count Erythrocytes 2.47 Below lower panic MEDGEN (S t [#/volume] in x10E6/uL limits Juan C's Blood by [facility], ) Automated count Hemoglobin 8.2 g/dL Below low normal MEDGEN (St [Mass/volume] in Juan C's Blood [facility]) Hematocrit 23.3 % Below low normal MEDGEN (St [Volume Juan C's Fraction] of [facility]) Blood by Automated count MCH 33.2 pg Above high normal [facility] ([facility], ) MCV 94 fL Normal (applies MEDGEN (St to non-numeric Juan C's results) [facility]) MCHC 35.2 Normal (applies MEDGEN (St g/dL to non-numeric Juan C's results) [facility]) RDW 19.0 % Above high normal [facility] ([facility], ) Platelets 198 Normal (applies MEDGEN (St [#/area] in x10E3/uL to non-numeric Juan C's Blood by results) [facility]) Microscopy high power field Neutrophils [#] 54 % Normal (applies MEDGEN ( St in Body fluid by to non-numeric Juan C's Manual count results) [facility]) Lymphs 13 % Normal (applies MEDGEN (St to non-numeric Juan C's results) [facility]) Monocytes 16 % Normal (applies MEDGEN (St [#/volume] in to non-numeric Juan C's Cord blood results) [facility]) Eos 11 % Normal (applies MEDGEN (St to non-numeric Juan C's results) [facility]) Basos 1 % Normal (applies MEDGEN (St to non-numeric Juan C's results) [facility]) Neutrophils 6.4 Normal (applies MEDGEN (St (Absolute) x10E3/uL to non-numeric Juan C's results) [facility]) Lymphs 1.5 Normal (applies MEDGEN (St (Absolute) x10E3/uL to non-numeric Juan C's results) [facility]) Monocytes(Absolu 1.9 Above high normal MEDGE N (St te) x10E3/uL [facility]'s [facility]) Eos (Absolute) 1.3 Above high normal MEDGEN (St x10E3/uL [facility]'s [facility]) Baso (Absolute) 0.1 Normal (applies MEDGEN ( St x10E3/uL to non-numeric Juan C's results) [facility]) Immature 5 % Normal (applies MEDGEN (St Granulocytes to non-numeric Juan C's results) [facility]) Immature Grans 0.6 Above high normal MEDGEN (St (Abs) x10E3/uL Juan [facility]'s [facility], ) NRBC 4 % Above high normal [facility] ([facility], ) Leukocytes 11.8 Above high normal MEDGEN (St [#/volume] in x10E3/uL Juan C's Blood by [facility], ) Automated count Erythrocytes 3.28 Below low normal MEDGEN (St [#/volume] in x10E6/uL Juan C's Blood by [facility], ) Automated count Hemoglobin 10.8 Below low normal MEDGEN (St [Mass/volume] in g/dL Juan C's Blood [facility], ) MCV 97 fL Normal (applies MEDGEN (St to non-numeric Juan C's results) [facility], ) Hematocrit 31.7 % Below low normal MEDGEN (St [Volume Juan C's Fraction] of [facility], ) Blood by Automated count MCH 32.9 pg Normal (applies MEDGEN (St to non-numeric Juan C's results) [facility], ) RDW 17.5 % Above high normal [facility] ([facility], ) MCHC 34.1 Normal (applies MEDGEN (St g/dL to non-numeric Juan C's results) [facility], ) Platelets 237 Normal (applies MEDGEN (St [#/area] in x10E3/uL to non-numeric Juan C's Blood by results) [facility], ) Microscopy high power field Neutrophils [#] 53 % Normal (applies [facility]GEN ( St in Body fluid by to non-numeric Juan C's Manual count results) [facility], ) Lymphs 20 % Normal (applies [facility] (St to non-numeric Juan C's results) [facility], ) Eos 12 % Normal (applies [facility] (St to non-numeric Juan C's results) [facility], ) Monocytes 13 % Normal (applies [facility] (St [#/volume] in to non-numeric Juan C's Cord blood results) [facility], ) Basos 1 % Normal (applies [facility] (St to non-numeric Juan C's results) [facility], ) Neutrophils 6.2 Normal (applies [facility] (St (Absolute) x10E3/uL to non-numeric Juan C's results) [facility], ) Lymphs 2.4 Normal (applies [facility]GEN (St (Absolute) x10E3/uL to non-numeric Juan C's results) [facility], ) Monocytes(Absolu 1.5 Above high normal MEDGE N (St te) x10E3/uL Juan C's [facility], ) Baso (Absolute) 0.1 Normal (applies [facility] ( St x10E3/uL to non-numeric Juan C's results) [facility], ) Eos (Absolute) 1.5 Above high normal [facility] (St x10E3/uL [facility], ) Immature 1 % Normal (applies [facility] (St Granulocytes to non-numeric Juan C's results) [facility], ) Hematology Note: Normal (applies [facility] (St Comments: to non-numeric Juan C's results) [facility], ) Immature Grans 0.2 Above high normal [facility] (St (Abs) x10E3/uL [facility], ) Leukocytes 9.5 Normal (applies [facility] (St [#/volume] in x10E3/uL to non-numeric Juan C's Blood by results) [facility]) Automated count Erythrocytes 3.28 Below low normal [facility] (St [#/volume] in x10E6/uL Juan C's Blood by [facility], ) Automated count Hemoglobin 10.9 Below low normal [facility] (St [Mass/volume] in g/dL Juan C's Blood [facility], ) Hematocrit 32.1 % Below low normal [facility] (St [Volume Juan C's Fraction] of [facility], ) Blood by Automated count MCH 33.2 pg Above high normal [facility] ([facility], ) MCV 98 fL Above high normal [facility] ([facility], ) MCHC 34.0 Normal (applies [facility] (St g/dL to non-numeric Juan C's results) [facility], ) RDW 17.3 % Above high normal [facility] ([facility], ) Platelets 240 Normal (applies [facility] (St [#/area] in x10E3/uL to non-numeric Juan C's Blood by results) [facility]) Microscopy high power field Neutrophils [#] 53 % Normal (applies [facility] ( St in Body fluid by to non-numeric Juan C's Manual count results) [facility]) Lymphs 19 % Normal (applies [facility] (St to non-numeric Juan C's results) [facility], ) Eos 11 % Normal (applies [facility] (St to non-numeric Juan C's results) [facility], ) Monocytes 15 % Normal (applies [facility] (St [#/volume] in to non-numeric Juan C's Cord blood results) Medical, ) Basos 0 % Normal (applies [facility] (St to non-numeric Juan C's results) [facility], ) Neutrophils 5.1 Normal (applies [facility] (St (Absolute) x10E3/uL to non-numeric Juan C's results) [facility], ) Lymphs 1.8 Normal (applies [facility] (St (Absolute) x10E3/uL to non-numeric Juan C's results) [facility], ) Monocytes(Absolu 1.5 Above high normal MEDGE N (St te) x10E3/uL [facility], ) Eos (Absolute) 1.0 Above high normal [facility] (St x10E3/uL [facility], ) Baso (Absolute) 0.0 Normal (applies [facility] ( St x10E3/uL to non-numeric Juan C's results) [facility], ) Immature Grans 0.2 Above high normal [facility] (St (Abs) x10E3/uL [facility], ) Immature 2 % Normal (applies [facility] (St Granulocytes to non-numeric Juan C's results) [facility], ) Hematology Note: Normal (applies [facility] (St Comments: to non-numeric Juan C's results) [facility], ) ID Date Data Source [id number] 08/27/2019 12:00:00 AM EST [facility] ([facility], ) Name Value Range Interpretation Code Description Data Lisa rce(s) Supporting Document(s ) TSH 3.560 Normal (applies to [facility] (St uIU/mL non-numeric Juan C's results) [facility], ) T4,Free(D 1.22 ng/dL Normal (applies to [facility] (St irect) non-numeric Juan C's results) [facility], ) ID Date Data Source [id number] 08/27/2019 12:00:00 AM EST [facility] ([facility], ) Name Value Range Interpretation Description Data Sup porting Code Source(s) Document(s ) No Urine Test not Normal (applies to [facility] (St Received performed non-numeric Juan C's . results) [facility], ) ID Date Data Source [id number] 08/27/2019 12:00:00 AM EST [facility] ([facility], ) Name Value Range Interpretation Description Data Sup porting Code Source(s) Document(s ) Vitamin D, 42.8 Normal (applies to [facility] (St 25-Hydroxy ng/mL non-numeric Juan C's results) Medical, ) Vitamin D, 36.2 Normal (applies to [facility] (St 25-Hydroxy ng/mL non-numeric Juan C's results) [facility], ) ID Date Data Source [id number] 08/27/2019 12:00:00 AM EST [facility] ([facility], ) Name Value Range Interpretation Description Data Sup porting Code Source(s) Document(s ) Hemoglobin 6.2 % Above high normal [facility] (St A1c/Hemoglobin. Juan C's total in Blood [facility], ) ID Date Data Source [id number] 08/27/2019 12:00:00 AM EST [facility] ([facility], ) Name Value Range Interpretation Description Data Sup porting Code Source(s) Document(s ) Folate 10.5 Normal (applies to [facility] (St (Folic ng/mL non-numeric Juan C's Acid), Serum results) [facility], ) Vitamin B12 385 pg/mL Normal (applies to [facility] (S t non-numeric Juan C's results) Medical, ) ID Date Data Source [id number] 08/27/2019 12:00:00 AM EST [facility] ([facility], ) Name Value Range Interpretation Description Data Sup porting Code Source(s) Document(s ) Cholesterol 80 mg/dL Below low normal [facility] (St [Mass/volume] in Juan C's Serum or Plasma [facility], ) Triglyceride 200 Above high normal MEDGEN (S t [Mass/volume] in mg/dL Juan C's Serum or Plasma [facility], ) VLDL Cholesterol 40 mg/dL Normal (applies [facility] (St Nils to non-numeric Juan C's results) [facility], ) HDL Cholesterol 25 mg/dL Below low normal [facility] ([facility], ) LDL Cholesterol 15 mg/dL Normal (applies [facility] ( St Calc to non-numeric Juan C's results) [facility], ) ID Date Data Source [id number] 08/27/2019 12:00:00 AM EST [facility] ([facility], ) Name Value Range Interpretation Description [...] for unspecified duration ID Date Data Source [id number] 08/27/2019 12:00:00 AM EST [facility] ([facility], ) Name Value Range Interpretation Description Data Sup porting Code Source(s) Document(s ) Urea nitrogen 36 mg/dL Above high [facility] (St [Mass/volume] in normal Juan C's Serum or Plasma [facility], ) Glucose 87 mg/dL Normal (applies [facility] (St [Mass/volume] in to non-numeric Juan C's Urine collected for results) Medical, unspecified PC) duration Creatinine 2.81 Above high [facility] (St [Interpretation] in mg/dL normal Juan C's Urine [facility], ) eGFR If NonAfricn 21 Below low normal MEDGE N (St Am mL/min/1 Juan C's .73 [facility], ) BUN/Creatinine 13 Normal (applies [facility] (S t Ratio to non-numeric Juan C's results) [facility], ) eGFR If Africn Am 24 Below low normal MEDGE N (St mL/min/1 Ujan C's .[facility], PC) Sodium 135 Normal (applies [facility] (St [Moles/volume] [...] non-numeric Juan C's Serum or Plasma results) [facility], ) Protein 9.0 g/dL Above high [facility] (St [Mass/volume] in normal Juan C's Serum or Plasma [facility]) Calcium 9.8 Normal (applies [facility] (St [Moles/volume] in mg/dL to non-numeric Juan C's Urine collected for results) [facility], unspecified ) duration Microalbumin 4.2 g/dL Normal (applies [facility] (St [Mass/time] in to non-numeric Juan C's Urine collected for results) [facility], unspecified ) duration Globulin, Total 4.8 g/dL Above high MEDGEN ( normal [facility], ) A/G Ratio 0.9 Below low normal [facility] ([facility], ) Bilirubin.total 0.3 Normal (applies [facility] ( St [Mass/volume] in mg/dL to non-numeric Juan C's Serum or Plasma results) [facility], ) Aspartate 22 IU/L Normal (applies [facility] (St aminotransferase to non-numeric Juan C's [Enzymatic results) Medical, activity/volume] in ) Serum or Plasma Alkaline 53 IU/L Normal (applies [facility] (St phosphatase to non-numeric Juan C's [Enzymatic results) Medical, activity/volume] in ) Serum, Plasma or Blood Alanine 20 IU/L Normal (applies [facility] (St aminotransferase to non-numeric Juan C's [Enzymatic results) Medical, activity/volume] in ) Serum or Plasma ID Date Data Source [id number] 08/27/2019 12:00:00 AM EST [facility], ) Name Value Range Interpretation Description Data Sup porting Code Source(s) Document(s ) Leukocytes 11.8 Above high normal [facility] (St [#/volume] in x10E3/uL Juan C's Blood by [facility], ) Automated count Erythrocytes 3.28 Below low normal [facility] (St [#/volume] in x10E6/uL Juan C's Blood by [facility]) Automated count Hematocrit 31.7 % Below low normal [facility] (St [Volume Juan C's Fraction] of [facility]) Blood by Automated count Hemoglobin 10.8 Below low normal [facility] (St [Mass/volume] in g/dL Juan C's Blood [facility], ) MCV 97 fL Normal (applies [facility] (St to non-numeric Juan C's results) [facility], ) MCH 32.9 pg Normal (applies [facility] (St to non-numeric Juan C's results) [facility], ) RDW 17.5 % Above high normal [facility] ([facility], ) MCHC 34.1 Normal (applies [facility] (St g/dL to non-numeric Juan C's results) [facility], ) Neutrophils [#] 53 % Normal (applies [facility] ( St in Body fluid by to non-numeric Juan C's Manual count results) [facility], ) Platelets 237 Normal (applies [facility] (St [#/area] in x10E3/uL to non-numeric Juan C's Blood by results) [facility], ) Microscopy high power field Lymphs 20 % Normal (applies [facility] (St to non-numeric Juan C's results) [facility], ) Eos 12 % Normal (applies [facility] (St to non-numeric Juan C's results) [facility], ) Basos 1 % Normal (applies [facility] (St to non-numeric Juan C's results) [facility], ) Monocytes 13 % Normal (applies [facility] (St [#/volume] in to non-numeric Juan C's Cord blood results) [facility], ) Neutrophils 6.2 Normal (applies [facility] (St (Absolute) x10E3/uL to non-numeric Juan C's results) [facility], ) Eos (Absolute) 1.5 Above high normal [facility] (St x10E3/uL Juan C[facility], ) Monocytes(Absolu 1.5 Above high normal MEDGE N (St te) x10E3/uL [facility], ) Lymphs 2.4 Normal (applies [facility] (St (Absolute) x10E3/uL to non-numeric Juan C's results) [facility], ) Immature 1 % Normal (applies [facility] (St Granulocytes to non-numeric Juan C's results) [facility], ) Baso (Absolute) 0.1 Normal (applies [facility] ( St x10E3/uL to non-numeric Juan C's results) [facility], ) Immature Grans 0.2 Above high normal [facility] (St (Abs) x10E3/uL [facility], ) Hematology Note: Normal (applies [facility] (St Comments: to non-numeric Juan C's results) [facility]) Leukocytes 9.5 Normal (applies [facility] (St [#/volume] in x10E3/uL to non-numeric Juan C's Blood by results) [facility]) Automated count Erythrocytes 3.28 Below low normal [facility] (St [#/volume] in x10E6/uL Juan C's Blood by [facility]) Automated count Hemoglobin 10.9 Below low normal [facility] (St [Mass/volume] in g/dL Juan C's Blood [facility]) MCV 98 fL Above high normal [facility] ([facility]) Hematocrit 32.1 % Below low normal [facility] (St [Volume Juan C's Fraction] of [facility]) Blood by Automated count MCHC 34.0 Normal (applies [facility] (St g/dL to non-numeric Juan C's results) [facility]) MCH 33.2 pg Above high normal [facility] ([facility]) Platelets 240 Normal (applies [facility]GEN (St [#/area] in x10E3/uL to non-numeric Juan C's Blood by results) [facility]) Microscopy high power field RDW 17.3 % Above high normal [facility] ([facility], ) Neutrophils [#] 53 % Normal (applies [facility] ( St in Body fluid by to non-numeric Juan C's Manual count results) [facility]) Lymphs 19 % Normal (applies [facility] (St to non-numeric Juan C's results) [facility]) Monocytes 15 % Normal (applies [facility] (St [#/volume] in to non-numeric Juan C's Cord blood results) [facility]) Basos 0 % Normal (applies [facility] (St to non-numeric Juan C's results) [facility]) Eos 11 % Normal (applies [facility] (St to non-numeric Juan C's results) [facility]) Lymphs 1.8 Normal (applies [facility] (St (Absolute) x10E3/uL to non-numeric Juan C's results) [facility]) Neutrophils 5.1 Normal (applies [facility] (St (Absolute) x10E3/uL to non-numeric Juan C's results) [facility]) Eos (Absolute) 1.0 Above high normal [facility] (St x10E3/uL [facility]'s [facility]) Monocytes(Absolu 1.5 Above high normal MEDGE N (St te) x10E3/uL [facility]'s [facility]) Immature 2 % Normal (applies [facility] (St Granulocytes to non-numeric Juan C's results) Medical, ) Baso (Absolute) 0.0 Normal (applies [facility] ( St x10E3/uL to non-numeric Juan C's results) Medical, ) Immature Grans 0.2 Above high normal [facility] (St (Abs) x10E3/uL Juan C's [facility], ) Hematology Note: Normal (applies [facility] (St Comments: to non-numeric Juan C's results) Medical, ) ID Date Data Source [id number] 08/27/2019 12:00:00 AM EST [facility] ([facility], ) Name Value Range Interpretation Code Description Data Lisa rce(s) Supporting Document(s ) TSH 3.560 Normal (applies to [facility] (St uIU/mL non-numeric Juan C's results) Medical, ) T4,Free(D 1.22 ng/dL Normal (applies to [facility] (St irect) non-numeric Juan C's results) [facility], ) ID Date Data Source [id number] 08/27/2019 12:00:00 AM EST [facility] ([facility], ) Name Value Range Interpretation Description Data Sup porting Code Source(s) Document(s ) No Urine Test not Normal (applies to [facility] (St Received performed non-numeric Juan C's . results) [facility], ) ID Date Data Source [id number] 08/27/2019 12:00:00 AM EST [facility] ([facility], ) Name Value Range Interpretation Description Data Sup porting Code Source(s) Document(s ) Vitamin D, 42.8 Normal (applies to [facility] (St 25-Hydroxy ng/mL non-numeric Juan C's results) Medical, ) Vitamin D, 36.2 Normal (applies to [facility] (St 25-Hydroxy ng/mL non-numeric Juan C's results) [facility], ) ID Date Data Source [id number] 08/27/2019 12:00:00 AM EST [facility] ([facility], ) Name Value Range Interpretation Description Data Sup porting Code Source(s) Document(s ) Hemoglobin 6.2 % Above high normal [facility] (St A1c/Hemoglobin. Juan C's total in Blood [facility], ) ID Date Data Source [id number] 08/27/2019 12:00:00 AM EST [facility] ([facility], ) Name Value Range Interpretation Description Data Sup porting Code Source(s) Document(s ) Vitamin B12 385 pg/mL Normal (applies to [facility]GEN (S t non-numeric Juan C's results) Medical, ) Folate 10.5 Normal (applies to [facility] (St (Folic ng/mL non-numeric Juan C's Acid), Serum results) Medical, ) ID Date Data Source [id number] 08/27/2019 12:00:00 AM EST [facility] ([facility], ) Name Value Range Interpretation Description Data Sup porting Code Source(s) Document(s ) Cholesterol 80 mg/dL Below low normal [facility] (St [Mass/volume] in Juan C's Serum or Plasma [facility], ) Triglyceride 200 Above high normal [facility]GEN (S t [Mass/volume] in mg/dL Juan C's Serum or Plasma [facility], ) HDL Cholesterol 25 mg/dL Below low normal [facility] ) LDL Cholesterol 15 mg/dL Normal (applies [facility] ( St Calc to non-numeric Juan C's results) Medical, ) VLDL Cholesterol 40 mg/dL Normal (applies [facility] (St Nils to non-numeric Juan C's results) Medical, ) ID Date Data Source [id number] 08/27/2019 12:00:00 AM EST [facility] ([facility], ) Name Value Range Interpretation Description [...] results) Medical, ) ID Date Data Source [id number] 08/27/2019 12:00:00 AM EST [facility] ([facility], ) Name Value Range Interpretation Description Data Sup porting Code Source(s) Document(s ) Glucose 87 mg/dL Normal (applies [facility] (St [Mass/volume] in to non-numeric Juan C's Urine collected for results) Medical, unspecified ) duration Creatinine 2.81 Above high [facility] (St [Interpretation] in mg/dL normal Juan C's Urine [facility], ) Urea nitrogen 36 mg/dL Above high [facility] (St [Mass/volume] in normal Juan C's Serum or Plasma [facility], ) eGFR If Africn Am 24 Below low normal MEDGE N (St mL/min/[address], ) eGFR If NonAfricn 21 Below low normal MEDGE N (St Am mL/min/[address], ) BUN/Creatinine 13 Normal (applies [facility]GEN (S t Ratio to non-numeric Juan C's results) Medical, ) Sodium 135 Normal (applies [facility]GEN (St [Moles/volume] in mmol/L to non-numeric Juan C's Serum or Plasma results) [facility], ) Potassium 4.1 Normal (applies [facility] (St [Mass/volume] in mmol/L to non-numeric Juan C's Blood results) [facility], ) Carbon dioxide, 20 Normal (applies [...] Serum or Plasma Medical, ) Globulin, Total 4.8 g/dL Above high MEDGEN (St normal Juan C's [facility], ) Microalbumin 4.2 g/dL Normal (applies [facility] (St [Mass/time] in to non-numeric Juan C's Urine collected for results) Medical, unspecified ) duration A/G Ratio 0.9 Below low normal [facility] ([facility], ) Bilirubin.total 0.3 Normal (applies MEDGEN [...] Serum or Plasma ID Date Data Source [id number] 08/27/2019 12:00:00 AM EST [facility] (St [facility], ) Name Value Range Interpretation Description Data Sup porting Code Source(s) Document(s ) Erythrocytes 3.28 Below low normal [facility] (St [#/volume] in x10E6/uL Juan C's Blood by [facility], ) Automated count Leukocytes 11.8 Above high normal [facility] (St [#/volume] in x10E3/uL Juan C's Blood by [facility], ) Automated count Hemoglobin 10.8 Below low normal [facility] (St [Mass/volume] in g/dL Juan C's Blood [facility], ) Hematocrit 31.7 % Below low normal [facility] (St [Volume Juan C's Fraction] of [facility], ) Blood by Automated count MCV 97 fL Normal (applies [facility]GEN (St to non-numeric Juan C's results) [facility], ) MCH 32.9 pg Normal (applies MEDGEN (St to non-numeric Juan C's results) [facility], ) MCHC 34.1 Normal (applies [facility]GEN (St g/dL to non-numeric Juna C's results) [facility], ) Platelets 237 Normal (applies MEDGEN (St [#/area] in x10E3/uL to non-numeric Juan C's Blood by results) [facility], ) Microscopy high power field RDW 17.5 % Above high normal [facility] ([facility], ) Lymphs 20 % Normal (applies MEDGEN (St to non-numeric Juan C's results) [facility], ) Neutrophils [#] 53 % Normal (applies [facility] ( St in Body fluid by to non-numeric Juan C's Manual count results) [facility], ) Monocytes 13 % Normal (applies [facility]GEN (St [#/volume] in to non-numeric Juan C's Cord blood results) [facility], ) Eos 12 % Normal (applies MEDGEN (St to non-numeric Juan C's results) [facility], ) Basos 1 % Normal (applies MEDGEN (St to non-numeric Juan C's results) [facility], ) Neutrophils 6.2 Normal (applies MEDGEN (St (Absolute) x10E3/uL to non-numeric Juan C's results) [facility], ) Lymphs 2.4 Normal (applies MEDGEN (St (Absolute) x10E3/uL to non-numeric Juan C's results) [facility], ) Monocytes(Absolu 1.5 Above high normal MEDGE N (St te) x10E3/uL [facility] N[facility], ) Eos (Absolute) 1.5 Above high normal [facility] (St x10E3/uL [facility], ) Immature 1 % Normal (applies MEDGEN (St Granulocytes to non-numeric Juan C's results) [facility], ) Baso (Absolute) 0.1 Normal (applies MEDGEN ( St x10E3/uL to non-numeric Juan C's results) [facility], ) Immature Grans 0.2 Above high normal [facility]GEN (St (Abs) x10E3/uL Juan C's [facility], ) Hematology Note: Normal (applies MEDGEN (St Comments: to non-numeric Juan C's results) [facility], ) Leukocytes 9.5 Normal (applies [facility]GEN (St [#/volume] in x10E3/uL to non-numeric Juan C's Blood by results) [facility], ) Automated count Erythrocytes 3.28 Below low normal [facility] (St [#/volume] in x10E6/uL Juan C's Blood by [facility], ) Automated count Hemoglobin 10.9 Below low normal [facility] (St [Mass/volume] in g/dL Juan C's Blood [facility], ) Hematocrit 32.1 % Below low normal [facility] (St [Volume Juan C's Fraction] of [facility], ) Blood by Automated count MCV 98 fL Above high normal [facility] ([facility], ) MCH 33.2 pg Above high normal [facility] ([facility], ) MCHC 34.0 Normal (applies [facility]GEN (St g/dL to non-numeric Juan C's results) [facility]) RDW 17.3 % Above high normal [facility] ([facility], ) Platelets 240 Normal (applies MEDGEN (St [#/area] in x10E3/uL to non-numeric Juan C's Blood by results) [facility], ) Microscopy high power field Lymphs 19 % Normal (applies MEDGEN (St to non-numeric Jua Nc's results) [facility]) Neutrophils [#] 53 % Normal (applies MEDGEN ( St in Body fluid by to non-numeric Juan C's Manual count results) [facility]) Monocytes 15 % Normal (applies MEDGEN (St [#/volume] in to non-numeric Juan C's Cord blood results) [facility]) Eos 11 % Normal (applies MEDGEN (St to non-numeric Juan C's results) [facility]) Basos 0 % Normal (applies MEDGEN (St to non-numeric Juan C's results) [facility]) Lymphs 1.8 Normal (applies MEDGEN (St (Absolute) x10E3/uL to non-numeric Juan C's results) [facility]) Neutrophils 5.1 Normal (applies MEDGEN (St (Absolute) x10E3/uL to non-numeric Juan C's results) [facility]) Eos (Absolute) 1.0 Above high normal MEDGEN (St x10E3/uL [facility], ) Monocytes(Absolu 1.5 Above high normal MEDGE N (St te) x10E3/uL [facility], ) Baso (Absolute) 0.0 Normal (applies MEDGEN ( St x10E3/uL to non-numeric Juan C's results) [facility]) Immature 2 % Normal (applies MEDGEN (St Granulocytes to non-numeric Juan C's results) [facility]) Immature Grans 0.2 Above high normal [facility]GEN (St (Abs) x10E3/uL [facility], ) Hematology Note: Normal (applies MEDGEN (St Comments: to non-numeric Juan C's results) [facility], ) ID Date Data Source [id number] 08/27/2019 12:00:00 AM EST [facility] ([facility], ) Name Value Range Interpretation Code Description Data Lisa rce(s) Supporting Document(s ) T4,Free(D 1.22 ng/dL Normal (applies to MEDGEN (St irect) non-numeric Juan C's results) [facility], ) TSH 3.560 Normal (applies to [facility] (St uIU/mL non-numeric Juan C's results) [facility], ) ID Date Data Source [id number] 08/27/2019 12:00:00 AM EST [facility] ([facility], ) Name Value Range Interpretation Description Data Sup porting Code Source(s) Document(s ) Cholesterol 80 mg/dL Below low normal MED[facility] (St [Mass/volume] in Juan C's Serum or Plasma [facility], ) Triglyceride 200 Above high normal MEDGEN (S t [Mass/volume] in mg/dL [facility]'s Serum or Plasma [facility], ) HDL Cholesterol 25 mg/dL Below low normal MED[facility] ([facility], ) VLDL Cholesterol 40 mg/dL Normal (applies MEDGEN (St Nils to non-numeric Juan C's results) [facility], ) LDL Cholesterol 15 mg/dL Normal (applies MEDGEN ( St Calc to non-numeric Juan C's results) [facility], ) ID Date Data Source [id number] 08/27/2019 12:00:00 AM EST MED[facility] ([facility], ) Name Value Range Interpretation Description Data Sup porting Code Source(s) Document(s ) Specific gravity Test not Normal (applies MEDGEN (St of Pericardial performe to non-numeric Juan C's fluid by d. results) Medical, ) Refractometry pH of Lower Test not Normal (applies [facility]GEN (St respiratory performe to non-numeric Juan C's specimen d. results) [facility], ) Protein Test not Normal (applies MEDGEN (St [Mass/volume] in performe to non-numeric Juan C's Lower d. results) [facility], ) respiratory specimen Glucose Test not Normal (applies [facility]GEN (St [Mass/volume] in performe to non-numeric Juan C's Urine collected d. results) [facility], ) for unspecified duration Ketones Test not Normal (applies MEDGEN (St [Presence] in performe to non-numeric Juan C's Blood by Tablet d. results) [facility], ) ID Date Data Source [id number] 08/27/2019 12:00:00 AM EST MEDGEN ([facility], ) Name Value Range Interpretation Description Data Sup porting Code Source(s) Document(s ) Glucose 87 mg/dL Normal (applies MEDGEN (St [Mass/volume] in to non-numeric Juan C's Urine collected for results) [facility], unspecified ) duration Urea nitrogen 36 mg/dL Above high MEDGEN (St [Mass/volume] in normal Juan C's Serum or Plasma [facility], ) Creatinine 2.81 Above high MEDGEN (St [Interpretation] in mg/dL normal Juan C's Urine [facility], ) eGFR If NonAfricn 21 Below low normal MEDGE N (St Am mL/min/[address], ) eGFR If Africn Am 24 Below low normal MEDGE N (St mL/min/[address]) BUN/Creatinine 13 Normal (applies MEDGEN (S t Ratio to non-numeric Juan C's results) [facility], ) Sodium 135 Normal (applies MEDGEN (St [Moles/volume] in mmol/L to non-numeric Juan C's Serum or Plasma results) [facility], ) Potassium 4.1 Normal (applies [facility]GEN (St [Mass/volume] in mmol/L to non-numeric Juan C's Blood results) [facility], ) Chloride 102 Normal (applies [facility]GEN (St [Moles/volume] in mmol/L to non-numeric Juan C's Serum or Plasma results) [facility], ) Carbon dioxide, 20 Normal (applies MEDGEN ( St total mmol/L to non-numeric Juan C's [Moles/volume] in results) [facility], Serum or Plasma [facility]) Calcium 9.8 Normal (applies MEDGEN (St [Moles/volume] in mg/dL to non-numeric [facility]'s Urine collected for results) [facility], unspecified ) duration Protein 9.0 g/dL Above high MEDGEN (St [Mass/volume] in normal Juan C's Serum or Plasma [facility], ) Microalbumin 4.2 g/dL Normal (applies MEDGEN (St [Mass/time] in to non-numeric Juan C's Urine collected for results) [facility], unspecified ) duration Globulin, Total 4.8 g/dL Above high MEDGEN (St normal [facility], ) A/G Ratio 0.9 Below low normal [facility] ([facility], ) Bilirubin.total 0.3 Normal (applies MEDGEN [...] Serum or Plasma ID Date Data Source [id number] 08/27/2019 12:00:00 AM EST [facility] ([facility], ) Name Value Range Interpretation Description Data Sup porting Code Source(s) Document(s ) Leukocytes 11.8 Above high normal [facility]GEN (St [#/volume] in x10E3/uL Juan C's Blood by [facility], ) Automated count Erythrocytes 3.28 Below low normal [facility]GEN (St [#/volume] in x10E6/uL Juan C's Blood by [facility], ) Automated count Hemoglobin 10.8 Below low normal [facility] (St [Mass/volume] in g/dL Juan [facility] Blood [facility], ) Hematocrit 31.7 % Below low normal [facility]GEN (St [Volume Juan C's Fraction] of [facility], ) Blood by Automated count MCV 97 fL Normal (applies [facility]GEN (St to non-numeric Juan C's results) [facility], ) MCH 32.9 pg Normal (applies [facility]GEN (St to non-numeric Juan C's results) [facility], ) MCHC 34.1 Normal (applies [facility]GEN (St g/dL to non-numeric Juan C's results) [facility], ) RDW 17.5 % Above high normal [facility] ([facility], ) Platelets 237 Normal (applies MEDGEN (St [#/area] in x10E3/uL to non-numeric Juan C's Blood by results) [facility], ) Microscopy high power field Neutrophils [#] 53 % Normal (applies MEDGEN ( St in Body fluid by to non-numeric Juan C's Manual count results) [facility], ) Lymphs 20 % Normal (applies [facility] (St to non-numeric [facility] C's results) [facility], ) Monocytes 13 % Normal (applies [facility]GEN (St [#/volume] in to non-numeric Juan C's Cord blood results) [facility], ) Eos 12 % Normal (applies [facility] (St to non-numeric [facility] C's results) [facility], ) Basos 1 % Normal (applies [facility]GEN (St to non-numeric Juan C's results) [facility]) Neutrophils 6.2 Normal (applies MEDGEN (St (Absolute) x10E3/uL to non-numeric Juan C's results) [facility], ) Lymphs 2.4 Normal (applies [facility] (St (Absolute) x10E3/uL to non-numeric [facility]) [facility] Monocytes(Absolu 1.5 Above high normal MEDGE N (St te) x10E3/uL [facility], ) Eos (Absolute) 1.5 Above high normal [facility] (St x10E3/uL [facility], ) Baso (Absolute) 0.1 Normal (applies [facility]GEN ( St x10E3/uL to non-numeric Juan C's results) [facility], ) Immature 1 % Normal (applies [facility] (St Granulocytes to non-numeric Juan C's results) [facility]) Immature Grans 0.2 Above high normal [facility]GEN (St (Abs) x10E3/uL [facility], ) Hematology Note: Normal (applies MEDGEN (St Comments: to non-numeric Juan C's results) [facility]) ID Date Data Source [id number] 08/27/2019 12:00:00 AM EST [facility] ([facility], ) Name Value Range Interpretation Code Description Data Lisa rce(s) Supporting Document(s ) TSH 3.560 Normal (applies to [facility]GEN (St uIU/mL non-numeric Juan C's results) [facility], ) T4,Free(D 1.22 ng/dL Normal (applies to MEDGEN (St irect) non-numeric Juan C's results) [facility], ) ID Date Data Source [id number] 08/27/2019 12:00:00 AM EST [facility] ([facility], ) Name Value Range Interpretation Description Data Sup porting Code Source(s) Document(s ) No Urine Test not Normal (applies to MEDGEN (St Received performed non-numeric Juan C's . results) [facility], ) ID Date Data Source [id number] 08/27/2019 12:00:00 AM EST [facility] ([facility], ) Name Value Range Interpretation Description Data Sup porting Code Source(s) Document(s ) Vitamin D, 42.8 Normal (applies to [facility]GEN (St 25-Hydroxy ng/mL non-numeric [facility]'s results) [facility], ) ID Date Data Source [id number] 08/27/2019 12:00:00 AM EST [facility] ([facility], ) Name Value Range Interpretation Description Data Sup porting Code Source(s) Document(s ) Hemoglobin 6.2 % Above high normal [facility]GEN (St A1c/Hemoglobin. [facility]'s total in Blood [facility], ) ID Date Data Source [id number] 08/27/2019 12:00:00 AM EST [facility] ([facility], ) Name Value Range Interpretation Description Data Sup porting Code Source(s) Document(s ) Folate 10.5 Normal (applies to MEDGEN (St (Folic ng/mL non-numeric [facility]'s Acid), Serum results) [facility], ) Vitamin B12 385 pg/mL Normal (applies to [facility]GEN (S t non-numeric [facility] results) [facility], ) ID Date Data Source [id number] 08/27/2019 12:00:00 AM EST [facility] ([facility], ) Name Value Range Interpretation Description Data Sup porting Code Source(s) Document(s ) Cholesterol 80 mg/dL Below low normal [facility]GEN (St [Mass/volume] in [facility]'s Serum or Plasma [facility], ) Triglyceride 200 Above high normal [facility]GEN (S t [Mass/volume] in mg/dL [facility]'s Serum or Plasma [facility], ) HDL Cholesterol 25 mg/dL Below low normal [facility] ([facility], ) VLDL Cholesterol 40 mg/dL Normal (applies [facility]GEN (St Nils to non-numeric [facility] C's results) [facility], ) LDL Cholesterol 15 mg/dL Normal (applies MEDGEN ( St Calc to non-numeric [facility] results) [facility], ) ID Date Data Source [id number] 08/27/2019 12:00:00 AM EST [facility] ([facility], ) Name Value Range Interpretation Description [...] non-numeric Juan C's Urine collected d. results) [facility], ) for unspecified duration ID Date Data Source [id number] 08/27/2019 12:00:00 AM EST [facility] ([facility], ) Name Value Range Interpretation Description Data Sup porting Code Source(s) Document(s ) Glucose 87 mg/dL Normal (applies [facility]GEN (St [Mass/volume] in to non-numeric [facility]'s Urine collected for results) [facility], unspecified [facility]) duration Urea nitrogen 36 mg/dL Above high [facility]GEN (St [Mass/volume] in normal Juan C's Serum or Plasma [facility], ) Creatinine 2.81 Above high [facility]GEN (St [Interpretation] in mg/dL normal [facility] C's Urine [facility], ) eGFR If NonAfricn 21 Below low normal MEDGE N (St Am mL/min/1 Juan C's .73 [facility], ) eGFR If Africn Am 24 Below low normal MEDGE N (St mL/min/1 Juan [facility]'s .73 [facility], ) Sodium 135 Normal (applies [facility]GEN (St [Moles/volume] in mmol/L to non-numeric [facility]'s Serum or Plasma results) [facility], ) BUN/Creatinine 13 Normal (applies MEDGEN (S t Ratio to non-numeric Juan C's results) [facility], ) Potassium 4.1 Normal (applies [facility]GEN (St [Mass/volume] in mmol/L to non-numeric Juan C's Blood results) [facility], ) Chloride 102 Normal (applies MEDGEN [...] in results) Medical, Serum or Plasma ) Protein 9.0 g/dL Above high MEDGEN (St [Mass/volume] in normal Juan C's Serum or Plasma [facility], ) Microalbumin 4.2 g/dL Normal (applies [facility]GEN (St [Mass/time] in to non-numeric [facility]'s Urine collected for results) Medical, unspecified ) duration Globulin, Total 4.8 g/dL Above high MEDGEN (St normal [facility], ) A/G Ratio 0.9 Below low normal [facility] ([facility], ) Bilirubin.total 0.3 Normal (applies MEDGEN ( St [Mass/volume] in mg/dL to non-numeric Juan C's Serum or Plasma results) [facility], ) Alkaline 53 IU/L Normal (applies [...] Serum or Plasma ID Date Data Source [id number] 08/27/2019 12:00:00 AM EST [facility] ([facility], ) Name Value Range Interpretation Description Data Sup porting Code Source(s) Document(s ) Leukocytes 11.8 Above high normal [facility]GEN (St [#/volume] in x10E3/uL Juan C's Blood by [facility], ) Automated count Erythrocytes 3.28 Below low normal [facility] (St [#/volume] in x10E6/uL Juan C's Blood by [facility], ) Automated count Hemoglobin 10.8 Below low normal [facility]GEN (St [Mass/volume] in g/dL Juan C's Blood [facility], ) MCV 97 fL Normal (applies MEDGEN (St to non-numeric Juan C's results) [facility], ) Hematocrit 31.7 % Below low normal [facility]GEN (St [Volume Juan C's Fraction] of [facility], ) Blood by Automated count MCH 32.9 pg Normal (applies MEDGEN (St to non-numeric Juan C's results) [facility], ) MCHC 34.1 Normal (applies MEDGEN (St g/dL to non-numeric Juan C's results) [facility], ) RDW 17.5 % Above high normal [facility] ([facility], ) Platelets 237 Normal (applies MEDGEN (St [#/area] in x10E3/uL to non-numeric Juan C's Blood by results) [facility], ) Microscopy high power field Neutrophils [#] 53 % Normal (applies MEDGEN ( St in Body fluid by to non-numeric Juan C's Manual count results) [facility], ) Lymphs 20 % Normal (applies [facility]GEN (St to non-numeric Juan C's results) [facility], ) Eos 12 % Normal (applies MEDGEN (St to non-numeric Juan C's results) [facility], ) Monocytes 13 % Normal (applies MEDGEN (St [#/volume] in to non-numeric Juan C's Cord blood results) [facility], ) Basos 1 % Normal (applies [facility]GEN (St to non-numeric Juan C's results) [facility], ) Neutrophils 6.2 Normal (applies MEDGEN (St (Absolute) x10E3/uL to non-numeric Juan C's results) [facility], ) Monocytes(Absolu 1.5 Above high normal MEDGE N (St te) x10E3/uL [facility], ) Lymphs 2.4 Normal (applies MEDGEN (St (Absolute) x10E3/uL to non-numeric Juan C's results) [facility], ) Eos (Absolute) 1.5 Above high normal [facility] (St x10E3/uL [facility], ) Baso (Absolute) 0.1 Normal (applies [facility]GEN ( St x10E3/uL to non-numeric Juan C's results) [facility], ) Immature 1 % Normal (applies [facility]GEN (St Granulocytes to non-numeric Juan C's results) [facility], ) Immature Grans 0.2 Above high normal [facility]GEN (St (Abs) x10E3/uL [facility], ) Hematology Note: Normal (applies [facility]GEN (St Comments: to non-numeric [facility] C's results) [facility], ) ID Date Data Source [id number] 08/27/2019 12:00:00 AM EST [facility] ([facility], ) Name Value Range Interpretation Code Description Data Lisa rce(s) Supporting Document(s ) TSH 3.560 Normal (applies to MEDGEN (St uIU/mL non-numeric [facility] C's results) [facility], ) T4,Free(D 1.22 ng/dL Normal (applies to MEDGEN (St irect) non-numeric [facility] C's results) [facility], ) ID Date Data Source [id number] 08/27/2019 12:00:00 AM EST [facility] ([facility], ) Name Value Range Interpretation Description Data Sup porting Code Source(s) Document(s ) No Urine Test not Normal (applies to MEDGEN (St Received performed non-numeric Juan C's . results) [facility], ) ID Date Data Source [id number] 08/27/2019 12:00:00 AM EST [facility] ([facility], ) Name Value Range Interpretation Description Data Sup porting Code Source(s) Document(s ) Vitamin D, 42.8 Normal (applies to MEDGEN (St 25-Hydroxy ng/mL non-numeric [facility] C's results) [facility], ) ID Date Data Source [id number] 08/27/2019 12:00:00 AM EST [facility] ([facility], ) Name Value Range Interpretation Description Data Sup porting Code Source(s) Document(s ) Hemoglobin 6.2 % Above high normal [facility]GEN (St A1c/Hemoglobin. [facility]'s total in Blood [facility], ) ID Date Data Source [id number] 08/27/2019 12:00:00 AM EST [facility] ([facility], ) Name Value Range Interpretation Description Data Sup porting Code Source(s) Document(s ) Folate 10.5 Normal (applies to MEDGEN (St (Folic ng/mL non-numeric Juan C's Acid), Serum results) Medical, ) Vitamin B12 385 pg/mL Normal (applies to MEDGEN (S t non-numeric [facility] C's results) [facility], ) ID Date Data Source [id number] 08/27/2019 12:00:00 AM EST [facility] ([facility], ) Name Value Range Interpretation Description Data Sup porting Code Source(s) Document(s ) Cholesterol 80 mg/dL Below low normal MEDGEN (St [Mass/volume] in Juan C's Serum or Plasma [facility], ) Triglyceride 200 Above high normal MEDGEN (S t [Mass/volume] in mg/dL Juan C's Serum or Plasma [facility], ) HDL Cholesterol 25 mg/dL Below low normal [facility] ([facility], ) VLDL Cholesterol 40 mg/dL Normal (applies MEDGEN (St Nils to non-numeric Juan C's results) [facility], ) LDL Cholesterol 15 mg/dL Normal (applies MEDGEN ( St Calc to non-numeric Juan C's results) [facility], ) ID Date Data Source [id number] 08/27/2019 12:00:00 AM EST MEDGEN ( [facility], ) Name Value Range Interpretation Description [...] results) Medical, ) ID Date Data Source [id number] 08/27/2019 12:00:00 AM EST [facility] ( [facility], ) Name Value Range Interpretation Description Data Sup porting Code Source(s) Document(s ) Glucose 87 mg/dL Normal (applies MEDGEN (St [Mass/volume] in to non-numeric Juan C's Urine collected for results) [facility] duration Urea nitrogen 36 mg/dL Above high MEDGEN (St [Mass/volume] in normal Juan C's Serum or Plasma [facility], ) Creatinine 2.81 Above high MEDGEN (St [Interpretation] in mg/dL normal Juan C's Urine [facility], ) eGFR If NonAfricn 21 Below low normal MEDGE N (St Am mL/min/1 [facility] [address], ) BUN/Creatinine 13 Normal (applies MEDGEN (S t Ratio to non-numeric Juan C's results) [facility], PC) eGFR If Africn Am 24 Below low normal MEDGE N (St mL/min/1 [facility], PC) Sodium 135 Normal (applies MEDGEN (St [Moles/volume] [...] Ratio 0.9 Below low normal [facility] ([facility], ) Alkaline 53 IU/L Normal (applies MEDGEN (St phosphatase to non-numeric Juan C's [Enzymatic results) Medical, activity/volume] in PC) Serum, Plasma or Blood Bilirubin.total 0.3 Normal (applies MEDGEN ( St [Mass/volume] in mg/dL to non-numeric Juan C's Serum or Plasma results) [facility], PC) Aspartate 22 IU/L Normal (applies MEDGEN (St aminotransferase to non-numeric Juan C's [Enzymatic results) Medical, activity/volume] in PC) Serum or Plasma Alanine 20 IU/L Normal (applies MEDGEN (St aminotransferase to non-numeric Juan C's [Enzymatic results) [facility], activity/volume] in PC) Serum or Plasma ID Date Data Source [id number] 08/27/2019 12:00:00 AM EST [facility] ([facility], ) Name Value Range Interpretation Description Data Sup porting Code Source(s) Document(s ) Leukocytes 11.8 Above high normal [facility] (St [#/volume] in x10E3/uL Juan C's Blood by [facility], ) Automated count Erythrocytes 3.28 Below low normal [facility] (St [#/volume] in x10E6/uL Juan C's Blood by [facility], ) Automated count Hematocrit 31.7 % Below low normal [facility]GEN (St [Volume Juan C's Fraction] of [facility], ) Blood by Automated count Hemoglobin 10.8 Below low normal [facility]GEN (St [Mass/volume] in g/dL Juan C's Blood [facility], ) MCV 97 fL Normal (applies MEDGEN (St to non-numeric Juan C's results) [facility], ) MCHC 34.1 Normal (applies MEDGEN (St g/dL to non-numeric Juan C's results) [facility], ) MCH 32.9 pg Normal (applies MEDGEN (St to non-numeric Juan C's results) [facility], ) RDW 17.5 % Above high normal [facility] ([facility], ) Platelets 237 Normal (applies MEDGEN (St [#/area] in x10E3/uL to non-numeric Juan C's Blood by results) [facility], ) Microscopy high power field Neutrophils [#] 53 % Normal (applies MEDGEN ( St in Body fluid by to non-numeric Juan C's Manual count results) [facility], ) Lymphs 20 % Normal (applies MEDGEN (St to non-numeric Juan C's results) [facility], ) Monocytes 13 % Normal (applies MEDGEN (St [#/volume] in to non-numeric Juan C's Cord blood results) [facility], ) Basos 1 % Normal (applies MEDGEN (St to non-numeric Juan C's results) [facility], ) Eos 12 % Normal (applies MEDGEN (St to non-numeric Juan C's results) [facility], ) Neutrophils 6.2 Normal (applies MEDGEN (St (Absolute) x10E3/uL to non-numeric Juan C's results) Medical, ) Lymphs 2.4 Normal (applies MEDGEN (St (Absolute) x10E3/uL to non-numeric Juan C's results) Medical, ) Monocytes(Absolu 1.5 Above high normal MEDGE N (St te) x10E3/uL [facility], ) Eos (Absolute) 1.5 Above high normal [facility] (St x10E3/uL [facility], ) Immature 1 % Normal (applies MEDGEN (St Granulocytes to non-numeric Juan C's results) [facility], ) Baso (Absolute) 0.1 Normal (applies MEDGEN ( St x10E3/uL to non-numeric Juan C's results) [facility], ) Hematology Note: Normal (applies MEDGEN (St Comments: to non-numeric Juan C's results) [facility], ) Immature Grans 0.2 Above high normal MEDGEN (St (Abs) x10E3/uL [facility], ) ID Date Data Source [id number] 08/27/2019 12:00:00 AM EST [facility] ([facility], ) Name Value Range Interpretation Code Description Data Lisa rce(s) Supporting Document(s ) TSH 3.560 Normal (applies to MEDGEN (St uIU/mL non-numeric Juan C's results) [facility], ) T4,Free(D 1.22 ng/dL Normal (applies to MEDGEN (St irect) non-numeric Juan C's results) [facility], ) ID Date Data Source [id number] 08/27/2019 12:00:00 AM EST [facility] ([facility], ) Name Value Range Interpretation Description Data Sup porting Code Source(s) Document(s ) No Urine Test not Normal (applies to MEDGEN (St Received performed non-numeric Juan C's . results) [facility], ) ID Date Data Source [id number] 08/27/2019 12:00:00 AM EST [facility] ([facility], ) Name Value Range Interpretation Description Data Sup porting Code Source(s) Document(s ) Vitamin D, 42.8 Normal (applies to MEDGEN (St 25-Hydroxy ng/mL non-numeric Juan C's results) [facility], ) ID Date Data Source [id number] 08/27/2019 12:00:00 AM EST [facility] ([facility], ) Name Value Range Interpretation Description Data Sup porting Code Source(s) Document(s ) Hemoglobin 6.2 % Above high normal MEDGEN (St A1c/Hemoglobin. Juan C's total in Blood [facility], ) ID Date Data Source [id number] 08/27/2019 12:00:00 AM EST MEDGEN ([facility]) Name Value Range Interpretation Description Data Sup porting Code Source(s) Document(s ) Vitamin B12 385 pg/mL Normal (applies to MEDGEN (S t non-numeric Juan C's results) [facility], ) Folate 10.5 Normal (applies to MEDGEN (St (Folic ng/mL non-numeric Juan C's Acid), Serum results) [facility], ) ID Date Data Source [id number] 08/27/2019 12:00:00 AM EST MEDGEN ([facility]) Name Value Range Interpretation Description Data Sup porting Code Source(s) Document(s ) Cholesterol 80 mg/dL Below low normal MEDGEN (St [Mass/volume] in Juan C's Serum or Plasma [facility], ) Triglyceride 200 Above high normal MEDGEN (S t [Mass/volume] in mg/dL Juan C's Serum or Plasma [facility], ) HDL Cholesterol 25 mg/dL Below low normal [facility] ([facility], ) LDL Cholesterol 15 mg/dL Normal (applies MEDGEN ( St Calc to non-numeric Juan C's results) [facility]) VLDL Cholesterol 40 mg/dL Normal (applies MEDGEN (St Nils to non-numeric Juan C's results) [facility], ) ID Date Data Source [id number] 08/27/2019 12:00:00 AM EST MEDGEN ([facility], ) Name Value Range Interpretation Description Data Sup porting Code Source(s) Document(s ) Specific gravity Test not Normal (applies MEDGEN (St of Pericardial performe to non-numeric Juan C's fluid by d. results) [facility], ) Refractometry Protein Test not Normal (applies MEDGEN (St [Mass/volume] in performe to non-numeric Juan C's Lower d. results) [facility], ) respiratory specimen pH of Lower Test not Normal (applies MEDGEN (St respiratory performe to non-numeric Juan C's specimen d. results) [facility], ) Ketones Test not Normal (applies MEDGEN (St [Presence] in performe to non-numeric Juan C's Blood by Tablet d. results) Medical, ) Glucose Test not Normal (applies MEDGEN (St [Mass/volume] in performe to non-numeric Juan C's Urine collected d. results) [facility], ) for unspecified duration ID Date Data Source [id number] 08/27/2019 12:00:00 AM EST [facility] ([facility], ) Name Value Range Interpretation Description Data Sup porting Code Source(s) Document(s ) Glucose 87 mg/dL Normal (applies MEDGEN (St [Mass/volume] in to non-numeric Juan C's Urine collected for results) [facility], unspecified ) duration Urea nitrogen 36 mg/dL Above high MEDGEN (St [Mass/volume] in normal Juan C's Serum or Plasma [facility], ) Creatinine 2.81 Above high MEDGEN (St [Interpretation] in mg/dL normal Juan C's Urine [facility], ) eGFR If NonAfricn 21 Below low normal MEDGE N (St Am mL/min/1 [facility] [address] [place] [address], ) eGFR If Africn Am 24 Below low normal MEDGE N (St mL/min/1 [facility] .73 [facility], ) BUN/Creatinine 13 Normal (applies MEDGEN [...] non-numeric Juan C's Urine collected for results) [facility], unspecified ) duration Protein 9.0 g/dL Above high MEDGEN (St [Mass/volume] in normal Juan C's Serum or Plasma Medical, ) Microalbumin 4.2 g/dL Normal (applies MEDGEN (St [Mass/time] in to non-numeric Juan C's Urine collected for results) [facility], unspecified ) duration Globulin, Total 4.8 g/dL Above high MEDGEN (St normal [facility], ) Bilirubin.total 0.3 Normal (applies MEDGEN ( St [Mass/volume] in mg/dL to non-numeric Juan [facility]'s Serum or Plasma results) [facility], ) A/G Ratio 0.9 Below low normal [facility] ([facility], ) Alkaline 53 IU/L Normal (applies [...] Serum or Plasma ID Date Data Source [id number] 08/27/2019 12:00:00 AM EST MEDGEN ([facility], ) Name Value Range Interpretation Description Data Sup porting Code Source(s) Document(s ) Leukocytes 11.8 Above high normal MEDGEN (St [#/volume] in x10E3/uL [facility] Blood by [facility], ) Automated count Erythrocytes 3.28 Below low normal MEDGEN (St [#/volume] in x10E6/uL [facility] Blood by [facility], ) Automated count Hemoglobin 10.8 Below low normal MEDGEN (St [Mass/volume] in g/dL [facility] Blood [facility], ) Hematocrit 31.7 % Below low normal MEDGEN (St [Volume [facility] Fraction] of [facility], ) Blood by Automated count MCH 32.9 pg Normal (applies MEDGEN (St to non-numeric [facility] results) [facility], ) MCV 97 fL Normal (applies MEDGEN (St to non-numeric [facility] results) [facility], ) MCHC 34.1 Normal (applies MEDGEN (St g/dL to non-numeric [facility] results) [facility], ) RDW 17.5 % Above high normal MEDGEN ([facility], ) Platelets 237 Normal (applies MEDGEN (St [#/area] in x10E3/uL to non-numeric [facility] Blood by results) [facility], ) Microscopy high power field Lymphs 20 % Normal (applies MEDGEN (St to non-numeric [facility] results) [facility]) Neutrophils [#] 53 % Normal (applies MEDGEN ( St in Body fluid by to non-numeric [facility] Manual count results) [facility], ) Monocytes 13 % Normal (applies MEDGEN (St [#/volume] in to non-numeric [facility] Cord blood results) [facility]) Eos 12 % Normal (applies MEDGEN (St to non-numeric [facility] results) [facility]) Basos 1 % Normal (applies MEDGEN (St to non-numeric [facility] results) [facility]) Neutrophils 6.2 Normal (applies MEDGEN (St (Absolute) x10E3/uL to non-numeric [facility] results) [facility]) Lymphs 2.4 Normal (applies MEDGEN (St (Absolute) x10E3/uL to non-numeric [facility] results) [facility]) Eos (Absolute) 1.5 Above high normal MEDGEN (St x10E3/uL [facility], ) Monocytes(Absolu 1.5 Above high normal MEDGE N (St te) x10E3/uL [facility]'s [facility]) Immature 1 % Normal (applies MEDGEN (St Granulocytes to non-numeric [facility] results) [facility]) Baso (Absolute) 0.1 Normal (applies MEDGEN ( St x10E3/uL to non-numeric [facility] results) [facility], ) Immature Grans 0.2 Above high normal MEDGEN (St (Abs) x10E3/uL [facility]) Hematology Note: Normal (applies MEDGEN (St Comments: to non-numeric [facility] results) [facility]) ID Date Data Source [id number] 08/27/2019 12:00:00 AM EST [facility] ([facility], ) Name Value Range Interpretation Code Description Data Lisa rce(s) Supporting Document(s ) TSH 3.560 Normal (applies to MEDGEN (St uIU/mL non-numeric [facility] results) [facility], ) T4,Free(D 1.22 ng/dL Normal (applies to MEDGEN (St irect) non-numeric [facility] results) [facility], [facility]) Procedure Social History Code Duration Value Status Description Data Source(s ) Smoking 2020 Denies current completed Denies current MEDGEN (St 12:00:00 AM EDT tobacco use, tobacco use, [facility], Former smoker, 30+ Former smoker, 30 + PC) years ago, denies years ago, denies any alcohol or any alcohol or ilicit drug use. ilicit drug use. Retired Denies Retired Denies having a having a colonoscopy in the colonoscopy in th e past past Smoking 2020 Unknown if ever completed Unknown if ever MEDG EN (St 12:00:00 AM EDT smoked smoked [facility]) Smoking 06/14/2020 Denies current completed Denies current [...] colonoscopy in th e past past Smoking 06/14/2020 Unknown if ever [...] colonoscopy in th e past past Smoking 05/31/2020 Unknown if [...] having a colonoscopy in the colonoscopy in [facility] past past Smoking 04/19/2020 Unknown if ever [...] having a colonoscopy in the colonoscopy in [facility] past past Smoking 04/12/2020 Unknown if ever [...] having a colonoscopy in the colonoscopy in [facility] past past Smoking 03/27/2020 Unknown if ever [...] having a colonoscopy in the colonoscopy in [facility] past past Smoking 03/24/2020 Unknown if ever completed Unknown if ever MEDG EN (St 12:00:00 AM EDT smoked smoked [facility]) Smoking 03/22/2020 Denies current completed Denies current MEDGEN (St 12:00:00 AM EDT tobacco use, tobacco use, [facility] Medical, Former smoker, 30+ Former smoker, 30 + ) years ago, denies years ago, denies any alcohol or any alcohol or ilicit drug use. ilicit drug use. Retired Denies Retired Denies having a having a colonoscopy in the colonoscopy in e past past Smoking 03/22/2020 Unknown if ever completed Unknown if ever MEDG EN (St 12:00:00 AM EDT smoked smoked [facility], ) Vital Signs ID Date Data Source UNK Name Value Range Interpretation Code Description Data Source(s) Heart rate 79 /min 79 /min MEDGEN ([facility] , ) Inhaled oxygen 95 % 95 % MEDGEN ([facility], ) Body mass index 22.7 kg/m2 22.7 kg/m2 MEDGEN (S t (BMI) [Ratio] [facility], ) Diastolic blood 80 mm[Hg] 80 mm[Hg] MEDGEN (S t pressure [facility] , ) Systolic blood 160 mm[Hg] 160 mm[Hg] MEDGEN ([facility] , ) Body weight 128 lb 128 lb MEDGEN ([facility]) Body height 63 in 63 in MEDGEN ([facility] , ) Heart rate 84 /min 84 /min MEDGEN ([facility] , ) Respiratory rate 14 /min 14 /min MEDGEN ( [facility] , ) Body mass index 22.3 kg/m2 22.3 kg/m2 MEDGEN (S t (BMI) [Ratio] [facility], ) Diastolic blood 86 mm[Hg] 86 mm[Hg] MEDGEN (S t pressure [facility] , ) Systolic blood 166 mm[Hg] 166 mm[Hg] MEDGEN ([facility] , ) Body weight 126 lb 126 lb MEDGEN ([facility]) Body height 63 in 63 in MEDGEN ([facility] , ) Heart rate 84 /min 84 /min MEDGEN ([facility] , ) Respiratory rate 14 /min 14 /min MEDGEN ( [facility] , ) Body mass index 22.3 kg/m2 22.3 kg/m2 MEDGEN (S t (BMI) [Ratio] [facility], ) Diastolic blood 86 mm[Hg] 86 mm[Hg] MEDGEN (S t pressure [facility] , ) Systolic blood 166 mm[Hg] 166 mm[Hg] MEDGEN ([facility] , ) Body weight 126 lb 126 lb MEDGEN ([facility] , ) Body height 63 in 63 in MEDGEN ([facility] , ) Heart rate 84 /min 84 /min MEDGEN ([facility] , ) Respiratory rate 14 /min 14 /min MEDGEN ( [facility] , ) Body mass index 22.1 kg/m2 22.1 kg/m2 MEDGEN (S t (BMI) [Ratio] [facility], ) Diastolic blood 80 mm[Hg] 80 mm[Hg] MEDGEN (S t pressure [facility] , ) Systolic blood 154 mm[Hg] 154 mm[Hg] MEDGEN (St pressure [facility] , ) Body weight 125 lb 125 lb MEDGEN ([facility] , ) Body height 63 in 63 in MEDGEN ([facility] , ) Heart rate 84 /min 84 /min MEDGEN ([facility] , ) Respiratory rate 14 /min 14 /min MEDGEN ( [facility] , ) Body mass index 22.1 kg/m2 22.1 kg/m2 MEDGEN (S t (BMI) [Ratio] [facility], ) Diastolic blood 80 mm[Hg] 80 mm[Hg] MEDGEN (S t pressure [facility] , ) Systolic blood 154 mm[Hg] 154 mm[Hg] MEDGEN (St pressure [facility] , ) Body weight 125 lb 125 lb MEDGEN ([facility] , ) Body height 63 in 63 in MEDGEN ([facility] , ) Heart rate 84 /min 84 /min MEDGEN ([facility] , ) Respiratory rate 14 /min 14 /min MEDGEN ( [facility] , ) Body mass index 22.1 kg/m2 22.1 kg/m2 MEDGEN (S t (BMI) [Ratio] [facility], ) Diastolic blood 80 mm[Hg] 80 mm[Hg] MEDGEN (S t pressure [facility] , ) Systolic blood 154 mm[Hg] 154 mm[Hg] MEDGEN ([facility] , ) Body weight 125 lb 125 lb MEDGEN ([facility]) Body height 63 in 63 in MEDGEN ([facility] , ) Heart rate 84 /min 84 /min MEDGEN ([facility] , ) Respiratory rate 14 /min 14 /min MEDGEN ( [facility] , ) Body mass index 22.3 kg/m2 22.3 kg/m2 MEDGEN (S t (BMI) [Ratio] [facility], ) Diastolic blood 94 mm[Hg] 94 mm[Hg] MEDGEN (S t pressure [facility] , ) Systolic blood 180 mm[Hg] 180 mm[Hg] MEDGEN ([facility] , ) Body weight 126 lb 126 lb MEDGEN ([facility]) Body height 63 in 63 in MEDGEN ([facility]) Heart rate 84 /min 84 /min MEDGEN ([facility]) Respiratory rate 14 /min 14 /min MEDGEN ( [facility] , ) Body mass index 22.3 kg/m2 22.3 kg/m2 MEDGEN (S t (BMI) [Ratio] [facility], ) Diastolic blood 94 mm[Hg] 94 mm[Hg] MEDGEN (S t pressure [facility] , ) Systolic blood 180 mm[Hg] 180 mm[Hg] MEDGEN ([facility] , ) Body weight 126 lb 126 lb MEDGEN ([facility]) Body height 63 in 63 in MEDGEN ([facility]) Heart rate 84 /min 84 /min MEDGEN ([facility] , ) Respiratory rate 14 /min 14 /min MEDGEN ( [facility] , ) Body mass index 22.3 kg/m2 22.3 kg/m2 MEDGEN (S t (BMI) [Ratio] [facility], ) Diastolic blood 94 mm[Hg] 94 mm[Hg] MEDGEN (S t pressure [facility] , ) Systolic blood 180 mm[Hg] 180 mm[Hg] MEDGEN ([facility] , ) Body weight 126 lb 126 lb MEDGEN ([facility]) Body height 63 in 63 in MEDGEN ([facility]) Heart rate 84 /min 84 /min MEDGEN ([facility]) Respiratory rate 14 /min 14 /min MEDGEN ( [facility]) Body mass index 22.3 kg/m2 22.3 kg/m2 MEDGEN (S t (BMI) [Ratio] [facility], ) Diastolic blood 94 mm[Hg] 94 mm[Hg] MEDGEN (S pressure [facility]) Systolic blood 180 mm[Hg] 180 mm[Hg] MEDGEN ([facility]) Body weight 126 lb 126 lb MEDGEN ([facility]) Body height 63 in 63 in MEDGEN ([facility]) Heart rate 84 /min 84 /min MEDGEN ([facility]) Respiratory rate 15 /min 15 /min MEDGEN ( [facility]) Inhaled oxygen 92 % 92 % MEDGEN ([facility], ) Body mass index 23.2 kg/m2 23.2 kg/m2 MEDGEN (S t (BMI) [Ratio] [facility], ) Diastolic blood 89 mm[Hg] 89 mm[Hg] MEDGEN (S pressure [facility]) Systolic blood 188 mm[Hg] 188 mm[Hg] MEDGEN ([facility]) Body weight 131 lb 131 lb MEDGEN ([facility]) Body height 63 in 63 in MEDGEN ([facility]) Heart rate 84 /min 84 /min MEDGEN ([facility]) Respiratory rate 15 /min 15 /min MEDGEN ( [facility]) Inhaled oxygen 92 % 92 % MEDGEN ([facility], ) Body mass index 23.2 kg/m2 23.2 kg/m2 MEDGEN (S t (BMI) [Ratio] [facility], ) Diastolic blood 89 mm[Hg] 89 mm[Hg] MEDGEN (S t pressure [facility]) Systolic blood 188 mm[Hg] 188 mm[Hg] MEDGEN ([facility] , ) Body weight 131 lb 131 lb MEDGEN ([facility]) Body height 63 in 63 in MEDGEN ([facility]) Heart rate 84 /min 84 /min MEDGEN ([facility] , ) Respiratory rate 15 /min 15 /min MEDGEN ( [facility] , ) Inhaled oxygen 92 % 92 % MEDGEN ([facility], ) Body mass index 23.2 kg/m2 23.2 kg/m2 MEDGEN (S t (BMI) [Ratio] [facility], ) Diastolic blood 89 mm[Hg] 89 mm[Hg] MEDGEN (S pressure [facility] , ) Systolic blood 188 mm[Hg] 188 mm[Hg] MEDGEN ([facility] , ) Body weight 131 lb 131 lb MEDGEN ([facility]) Body height 63 in 63 in MEDGEN ([facility]) Heart rate 84 /min 84 /min MEDGEN ([facility] , ) Respiratory rate 15 /min 15 /min MEDGEN ( [facility]) Inhaled oxygen 92 % 92 % MEDGEN ([facility], ) Body mass index 23.2 kg/m2 23.2 kg/m2 MEDGEN (S t (BMI) [Ratio] [facility], ) Diastolic blood 89 mm[Hg] 89 mm[Hg] MEDGEN (S t pressure [facility] , ) Systolic blood 188 mm[Hg] 188 mm[Hg] MEDGEN ([facility] , ) Body weight 131 lb 131 lb MEDGEN ([facility]) Body height 63 in 63 in MEDGEN ([facility]) Heart rate 84 /min 84 /min MEDGEN ([facility] , ) Respiratory rate 15 /min 15 /min MEDGEN ( [facility] , ) Inhaled oxygen 92 % 92 % MEDGEN ([facility], ) Body mass index 23.2 kg/m2 23.2 kg/m2 MEDGEN (S t (BMI) [Ratio] [facility], ) Diastolic blood 89 mm[Hg] 89 mm[Hg] MEDGEN (S t pressure [facility] , ) Systolic blood 188 mm[Hg] 188 mm[Hg] MEDGEN ([facility]) Body weight 131 lb 131 lb MEDGEN ([facility]) Body height 63 in 63 in MEDGEN ([facility]) Respiratory rate 16 /min 16 /min MEDGEN ( [facility]) Body mass index 23.2 kg/m2 23.2 kg/m2 MEDGEN (S t (BMI) [Ratio] [facility], ) Diastolic blood 90 mm[Hg] 90 mm[Hg] MEDGEN (S t pressure [facility]) Systolic blood 180 mm[Hg] 180 mm[Hg] MEDGEN ([facility]) Body weight 131 lb 131 lb MEDGEN ([facility]) Body height 63 in 63 in MEDGEN ([facility]) Respiratory rate 16 /min 16 /min MEDGEN ( [facility]) Body mass index 23.2 kg/m2 23.2 kg/m2 MEDGEN (S t (BMI) [Ratio] [facility], ) Diastolic blood 90 mm[Hg] 90 mm[Hg] MEDGEN (S t pressure [facility] , ) Systolic blood 180 mm[Hg] 180 mm[Hg] MEDGEN ([facility] , ) Body weight 131 lb 131 lb MEDGEN ([facility]) Body height 63 in 63 in MEDGEN ([facility]) Respiratory rate 16 /min 16 /min MEDGEN ( [facility]) Body mass index 23.2 kg/m2 23.2 kg/m2 MEDGEN (S t (BMI) [Ratio] [facility], ) Diastolic blood 90 mm[Hg] 90 mm[Hg] MEDGEN (S t pressure [facility]) Systolic blood 180 mm[Hg] 180 mm[Hg] MEDGEN ([facility] , ) Body weight 131 lb 131 lb MEDGEN ([facility]) Body height 63 in 63 in MEDGEN ([facility]) Respiratory rate 16 /min 16 /min MEDGEN ( [facility]) Body mass index 23.2 kg/m2 23.2 kg/m2 MEDGEN (S t (BMI) [Ratio] [facility]) Diastolic blood 90 mm[Hg] 90 mm[Hg] MEDGEN (S t pressure [facility]) Systolic blood 180 mm[Hg] 180 mm[Hg] MEDGEN ([facility]) Body weight 131 lb 131 lb MEDGEN ([facility]) Body height 63 in 63 in MEDGEN ([facility]) Respiratory rate 16 /min 16 /min MEDGEN ( [facility]) Body mass index 23.2 kg/m2 23.2 kg/m2 MEDGEN (S t (BMI) [Ratio] [facility], ) Diastolic blood 90 mm[Hg] 90 mm[Hg] MEDGEN (S t pressure [facility]) Systolic blood 180 mm[Hg] 180 mm[Hg] MEDGEN ([facility]) Body weight 131 lb 131 lb MEDGEN ([facility]) Body height 63 in 63 in MEDGEN ([facility]) Respiratory rate 16 /min 16 /min MEDGEN ( [facility]) Body mass index 23.2 kg/m2 23.2 kg/m2 MEDGEN (S t (BMI) [Ratio] [facility], ) Diastolic blood 90 mm[Hg] 90 mm[Hg] MEDGEN (S t pressure [facility]) Systolic blood 180 mm[Hg] 180 mm[Hg] MEDGEN ([facility]) Body weight 131 lb 131 lb MEDGEN ([facility]) Body height 63 in 63 in MEDGEN ([facility]) Heart rate 72 /min 72 /min MEDGEN ([facility]) Respiratory rate 16 /min 16 /min MEDGEN ( [facility]) Body mass index 23.2 kg/m2 23.2 kg/m2 MEDGEN (S t (BMI) [Ratio] [facility], ) Diastolic blood 58 mm[Hg] 58 mm[Hg] MEDGEN (S t pressure [facility]) Systolic blood 110 mm[Hg] 110 mm[Hg] MEDGEN ([facility] , ) Body weight 131 lb 131 lb MEDGEN ([facility] , ) Body height 63 in 63 in MEDGEN ([facility]) Heart rate 72 /min 72 /min MEDGEN ([facility] , ) Respiratory rate 16 /min 16 /min MEDGEN ( [facility] , ) Body mass index 23.2 kg/m2 23.2 kg/m2 MEDGEN (S t (BMI) [Ratio] [facility], ) Diastolic blood 58 mm[Hg] 58 mm[Hg] MEDGEN (S t pressure [facility] , ) Systolic blood 110 mm[Hg] 110 mm[Hg] MEDGEN ([facility] , ) Body weight 131 lb 131 lb MEDGEN ([facility]) Body height 63 in 63 in MEDGEN ([facility] , ) Heart rate 72 /min 72 /min MEDGEN ([facility] , ) Respiratory rate 16 /min 16 /min MEDGEN ( [facility] , ) Body mass index 23.2 kg/m2 23.2 kg/m2 MEDGEN (S t (BMI) [Ratio] [facility], ) Diastolic blood 58 mm[Hg] 58 mm[Hg] MEDGEN (S t pressure [facility] , ) Systolic blood 110 mm[Hg] 110 mm[Hg] MEDGEN ([facility] , ) Body weight 131 lb 131 lb MEDGEN ([facility]) Body height 63 in 63 in MEDGEN ([facility] , ) Heart rate 72 /min 72 /min MEDGEN ([facility] , ) Respiratory rate 16 /min 16 /min MEDGEN ( [facility] , ) Body mass index 23.2 kg/m2 23.2 kg/m2 MEDGEN (S t (BMI) [Ratio] [facility], ) Diastolic blood 58 mm[Hg] 58 mm[Hg] MEDGEN (S t pressure [facility] , ) Systolic blood 110 mm[Hg] 110 mm[Hg] MEDGEN ([facility] , ) Body weight 131 lb 131 lb MEDGEN ([facility]) Body height 63 in 63 in MEDGEN ([facility]) Heart rate 72 /min 72 /min MEDGEN ([facility]) Respiratory rate 16 /min 16 /min MEDGEN ( [facility]) Body mass index 23.2 kg/m2 23.2 kg/m2 MEDGEN (S t (BMI) [Ratio] [facility], ) Diastolic blood 58 mm[Hg] 58 mm[Hg] MEDGEN (S t pressure [facility]) Systolic blood 110 mm[Hg] 110 mm[Hg] MEDGEN ([facility]) Body weight 131 lb 131 lb MEDGEN ([facility]) Body height 63 in 63 in MEDGEN ([facility]) Heart rate 72 /min 72 /min MEDGEN ([facility]) Respiratory rate 16 /min 16 /min MEDGEN ( [facility]) Body mass index 23.2 kg/m2 23.2 kg/m2 MEDGEN (S t (BMI) [Ratio] [facility], ) Diastolic blood 58 mm[Hg] 58 mm[Hg] MEDGEN (S t pressure [facility]) Systolic blood 110 mm[Hg] 110 mm[Hg] MEDGEN ([facility]) Body weight 131 lb 131 lb MEDGEN ([facility]) Body height 63 in 63 in MEDGEN ([facility]) Heart rate 72 /min 72 /min MEDGEN ([facility]) Respiratory rate 16 /min 16 /min MEDGEN ( [facility]) Body mass index 23.2 kg/m2 23.2 kg/m2 MEDGEN (S t (BMI) [Ratio] [facility], ) Diastolic blood 58 mm[Hg] 58 mm[Hg] MEDGEN (S t pressure [facility]) Systolic blood 110 mm[Hg] 110 mm[Hg] MEDGEN ([facility]) Body weight 131 lb 131 lb MEDGEN ([facility]) Body height 63 in 63 in MEDGEN ([facility]) Heart rate 58 /min 58 /min MEDGEN ([facility]) Inhaled oxygen 96 % 96 % MEDGEN ([facility], ) Diastolic blood 58 mm[Hg] 58 mm[Hg] MEDGEN (S t pressure [facility] , ) Systolic blood 120 mm[Hg] 120 mm[Hg] MEDGEN (St pressure [facility] , ) Body weight 126 lb 126 lb MEDGEN ([facility] , ) Heart rate 58 /min 58 /min MEDGEN ([facility] , ) Inhaled oxygen 96 % 96 % MEDGEN ([facility], ) Diastolic blood 58 mm[Hg] 58 mm[Hg] MEDGEN (S t pressure [facility] , ) Systolic blood 120 mm[Hg] 120 mm[Hg] MEDGEN ([facility] , ) Body weight 126 lb 126 lb MEDGEN ([facility] , ) Heart rate 58 /min 58 /min MEDGEN ([facility] , ) Inhaled oxygen 96 % 96 % MEDGEN ([facility], ) Diastolic blood 58 mm[Hg] 58 mm[Hg] MEDGEN (S t pressure [facility] , ) Systolic blood 120 mm[Hg] 120 mm[Hg] MEDGEN ([facility] , ) Body weight 126 lb 126 lb MEDGEN ([facility] , ) Heart rate 58 /min 58 /min MEDGEN ([facility] , ) Inhaled oxygen 96 % 96 % MEDGEN ([facility], ) Diastolic blood 58 mm[Hg] 58 mm[Hg] MEDGEN (S t pressure [facility] , ) Systolic blood 120 mm[Hg] 120 mm[Hg] MEDGEN ([facility] , ) Body weight 126 lb 126 lb MEDGEN ([facility] , ) Heart rate 58 /min 58 /min MEDGEN ([facility] , ) Inhaled oxygen 96 % 96 % MEDGEN ([facility], ) Diastolic blood 58 mm[Hg] 58 mm[Hg] MEDGEN (S t pressure [facility] , ) Systolic blood 120 mm[Hg] 120 mm[Hg] MEDGEN ([facility] , ) Body weight 126 lb 126 lb MEDGEN ([facility] , ) Heart rate 58 /min 58 /min MED[facility] ([facility] , ) Inhaled oxygen 96 % 96 % MEDGEN (St concentration [facility], ) Diastolic blood 58 mm[Hg] 58 mm[Hg] MEDGEN (S t pressure [facility]) Systolic blood 120 mm[Hg] 120 mm[Hg] MEDGEN (St pressure [facility] , ) Body weight 126 lb 126 lb MEDGEN ([facility] , ) Heart rate 58 /min 58 /min MEDGEN ([facility] , ) Inhaled oxygen 96 % 96 % MEDGEN ([facility], ) Diastolic blood 58 mm[Hg] 58 mm[Hg] MEDGEN (S t pressure [facility] , ) Systolic blood 120 mm[Hg] 120 mm[Hg] MEDGEN (St pressure [facility] , ) Body weight 126 lb 126 lb MEDGEN ([facility] , ) Heart rate 58 /min 58 /min MEDGEN ([facility] , ) Inhaled oxygen 96 % 96 % MEDGEN (St concentration [facility], ) Diastolic blood 58 mm[Hg] 58 mm[Hg] MEDGEN (S t pressure [facility] , ) Systolic blood 120 mm[Hg] 120 mm[Hg] MEDGEN (St pressure [facility] , ) Body weight 126 lb 126 lb MED[facility] ([facility] , ) Heart rate 81 /min 81 /min [facility] ([facility] , ) Respiratory rate 12 /min 12 /min [facility] ( [facility] , ) Body temperature 98 F 98 F [facility] ( [facility] , ) Inhaled oxygen 100 % 100 % MEDGEN ([facility], ) Diastolic blood 78 mm[Hg] 78 mm[Hg] MEDGEN (S t [facility] , ) Systolic blood 136 mm[Hg] 136 mm[Hg] MEDGEN (St [facility] , ) Heart rate 81 /min 81 /min [facility] ([facility] , ) Respiratory rate 12 /min 12 /min [facility] ( [facility] , ) Body temperature 98 F 98 F [facility] ( [facility] , ) Inhaled oxygen 100 % 100 % [facility] ([facility], ) Diastolic blood 78 mm[Hg] 78 mm[Hg] MED[facility] (S t [facility] , ) Systolic blood 136 mm[Hg] 136 mm[Hg] MEDGEN (St [facility] , ) Heart rate 81 /min 81 /min [facility] ([facility] , ) Respiratory rate 12 /min 12 /min [facility] ( [facility] , ) Body temperature 98 F 98 F [facility] ( [facility] , ) Inhaled oxygen 100 % 100 % MEDGEN ([facility], ) Diastolic blood 78 mm[Hg] 78 mm[Hg] MEDGEN (S t [facility] , ) Systolic blood 136 mm[Hg] 136 mm[Hg] MEDGEN ([facility] , ) Heart rate 81 /min 81 /min [facility] ([facility] , ) Respiratory rate 12 /min 12 /min [facility] ( [facility] , ) Body temperature 98 F 98 F [facility] ( [facility] , ) Inhaled oxygen 100 % 100 % [facility] ([facility], ) Diastolic blood 78 mm[Hg] 78 mm[Hg] MED[facility] (S t [facility] , ) Systolic blood 136 mm[Hg] 136 mm[Hg] [facility] ([facility] , ) Heart rate 81 /min 81 /min [facility] ([facility] , ) Respiratory rate 12 /min 12 /min [facility] ( [facility] , ) Body temperature 98 F 98 F [facility] ( [facility] , ) Inhaled oxygen 100 % 100 % MED[facility] ([facility], ) Diastolic blood 78 mm[Hg] 78 mm[Hg] MED[facility] (S t [facility] , ) Systolic blood 136 mm[Hg] 136 mm[Hg] [facility] ([facility] , ) Heart rate 81 /min 81 /min [facility] ([facility] , ) Respiratory rate 12 /min 12 /min [facility] ( [facility] , ) Body temperature 98 F 98 F [facility] ( [facility] , ) Inhaled oxygen 100 % 100 % MED[facility] ([facility], ) Diastolic blood 78 mm[Hg] 78 mm[Hg] MED[facility] (S t pressure [facility] , ) Systolic blood 136 mm[Hg] 136 mm[Hg] MED[facility] (St [facility] , ) Heart rate 81 /min 81 /min [facility] ([facility] , ) Respiratory rate 12 /min 12 /min [facility] ( [facility] , ) Body temperature 98 F 98 F [facility] ( [facility] , ) Inhaled oxygen 100 % 100 % MED[facility] ([facility], ) Diastolic blood 78 mm[Hg] 78 mm[Hg] MED[facility] (S t pressure [facility] , ) Systolic blood 136 mm[Hg] 136 mm[Hg] MED[facility] (St [facility] , ) Heart rate 81 /min 81 /min [facility] ([facility] , ) Respiratory rate 12 /min 12 /min [facility] ( [facility] , ) Body temperature 98 F 98 F [facility] ( [facility] , ) Inhaled oxygen 100 % 100 % MED[facility] ([facility], ) Diastolic blood 78 mm[Hg] 78 mm[Hg] MED[facility] (S t pressure [facility] , ) Systolic blood 136 mm[Hg] 136 mm[Hg] MED[facility] (St [facility] , ) Heart rate 81 /min 81 /min [facility] ([facility] , ) Respiratory rate 12 /min 12 /min [facility] ( [facility] , ) Body temperature 98 F 98 F [facility] ( [facility] , ) Inhaled oxygen 100 % 100 % MEDGEN (St [facility], ) Diastolic blood 78 mm[Hg] 78 mm[Hg] MED[facility] (S t pressure [facility] , ) Systolic blood 136 mm[Hg] 136 mm[Hg] MEDGEN (St [facility] , ) Heart rate 81 /min 81 /min [facility] ([facility] , ) Respiratory rate 12 /min 12 /min [facility] ( [facility] , ) Body temperature 98 F 98 F [facility] ( [facility] , ) Inhaled oxygen 100 % 100 % MEDGEN (St concentration [facility], ) Diastolic blood 78 mm[Hg] 78 mm[Hg] MEDGEN (S t pressure [facility] , ) Systolic blood 136 mm[Hg] 136 mm[Hg] MED[facility] ([facility] , ) Heart rate 81 /min 81 /min MED[facility] ([facility] , ) Respiratory rate 12 /min 12 /min MED[facility] ( [facility] , ) Body temperature 98 F 98 F MED[facility] ( [facility]) Inhaled oxygen 100 % 100 % MED[facility] ([facility], ) Diastolic blood 78 mm[Hg] 78 mm[Hg] MEDGEN (S t pressure [facility] , ) Systolic blood 136 mm[Hg] 136 mm[Hg] [facility] ([facility] , ) Heart rate 84 /min 84 /min [facility] ([facility] , ) Respiratory rate 14 /min 14 /min MED[facility] ( [facility] , ) Body mass index 23.2 kg/m2 23.2 kg/m2 MEDGEN (S t (BMI) [Ratio] [facility], ) Diastolic blood 70 mm[Hg] 70 mm[Hg] MEDGEN (S t pressure [facility] , ) Systolic blood 140 mm[Hg] 140 mm[Hg] [facility] ([facility] , ) Body weight 131 lb 131 lb MED[facility] ([facility]) Body height 63 in 63 in MED[facility] ([facility]) Heart rate 84 /min 84 /min [facility] ([facility] , ) Respiratory rate 14 /min 14 /min MED[facility] ( [facility] , ) Body mass index 23.2 kg/m2 23.2 kg/m2 MEDGEN (S t (BMI) [Ratio] [facility], ) Diastolic blood 70 mm[Hg] 70 mm[Hg] MEDGEN (S t pressure [facility] , ) Systolic blood 140 mm[Hg] 140 mm[Hg] MED[facility] ([facility] , ) Body weight 131 lb 131 lb MED[facility] ([facility]) Body height 63 in 63 in MED[facility] ([facility]) Heart rate 84 /min 84 /min MED[facility] ([facility] , ) Respiratory rate 14 /min 14 /min MED[facility] ( [facility] , ) Body mass index 23.2 kg/m2 23.2 kg/m2 MED[facility] (S t (BMI) [Ratio] [facility], ) Diastolic blood 70 mm[Hg] 70 mm[Hg] MEDGEN (S t pressure [facility] , ) Systolic blood 140 mm[Hg] 140 mm[Hg] MEDGEN ([facility] , ) Body weight 131 lb 131 lb MED[facility] ([facility]) Body height 63 in 63 in MEDGEN ([facility] , ) Heart rate 84 /min 84 /min MED[facility] ([facility]) Respiratory rate 14 /min 14 /min MED[facility] ( [facility]) Body mass index 23.2 kg/m2 23.2 kg/m2 MEDGEN (S t (BMI) [Ratio] [facility], ) Diastolic blood 70 mm[Hg] 70 mm[Hg] MEDGEN (S t pressure [facility] , ) Systolic blood 140 mm[Hg] 140 mm[Hg] MEDGEN ([facility]) Body weight 131 lb 131 lb MED[facility] ([facility]) Body height 63 in 63 in MED[facility] ([facility]) Heart rate 84 /min 84 /min MED[facility] ([facility]) Respiratory rate 14 /min 14 /min MED[facility] ( [facility]) Body mass index 23.2 kg/m2 23.2 kg/m2 MEDGEN (S t (BMI) [Ratio] [facility], ) Diastolic blood 70 mm[Hg] 70 mm[Hg] MEDGEN (S t pressure [facility] , ) Systolic blood 140 mm[Hg] 140 mm[Hg] MEDGEN ([facility] , ) Body weight 131 lb 131 lb MED[facility] ([facility]) Body height 63 in 63 in MEDGEN ([facility] , ) Heart rate 84 /min 84 /min MED[facility] ([facility]) Respiratory rate 14 /min 14 /min MEDGEN ( [facility]) Body mass index 23.2 kg/m2 23.2 kg/m2 MEDGEN (S t (BMI) [Ratio] [facility], ) Diastolic blood 70 mm[Hg] 70 mm[Hg] MEDGEN (S t pressure [facility] , ) Systolic blood 140 mm[Hg] 140 mm[Hg] MEDGEN ([facility] , ) Body weight 131 lb 131 lb MEDGEN ([facility] , ) Body height 63 in 63 in MEDGEN ([facility] , ) Heart rate 84 /min 84 /min MED[facility] ([facility] , ) Respiratory rate 14 /min 14 /min MEDGEN ( [facility] , ) Body mass index 23.2 kg/m2 23.2 kg/m2 MEDGEN (S t (BMI) [Ratio] [facility], ) Diastolic blood 70 mm[Hg] 70 mm[Hg] MEDGEN (S t pressure [facility] , ) Systolic blood 140 mm[Hg] 140 mm[Hg] MEDGEN ([facility] , ) Body weight 131 lb 131 lb MEDGEN ([facility] , ) Body height 63 in 63 in MEDGEN ([facility] , ) Heart rate 84 /min 84 /min MED[facility] ([facility] , ) Respiratory rate 14 /min 14 /min MEDGEN ( [facility] , ) Body mass index 23.2 kg/m2 23.2 kg/m2 MEDGEN (S t (BMI) [Ratio] [facility], ) Diastolic blood 70 mm[Hg] 70 mm[Hg] MEDGEN (S t pressure [facility] , ) Systolic blood 140 mm[Hg] 140 mm[Hg] MEDGEN ([facility] , ) Body weight 131 lb 131 lb MEDGEN ([facility] , ) Body height 63 in 63 in MEDGEN ([facility] , ) Heart rate 84 /min 84 /min [facility] ([facility] , ) Respiratory rate 14 /min 14 /min MEDGEN ( [facility] , ) Body mass index 23.2 kg/m2 23.2 kg/m2 MED[facility] (S t (BMI) [Ratio] [facility], ) Diastolic blood 70 mm[Hg] 70 mm[Hg] MEDGEN (S t pressure [facility] , ) Systolic blood 140 mm[Hg] 140 mm[Hg] MEDGEN ([facility] , ) Body weight 131 lb 131 lb MED[facility] ([facility]) Body height 63 in 63 in MEDGEN ([facility]) Heart rate 84 /min 84 /min MED[facility] ([facility]) Respiratory rate 14 /min 14 /min MEDGEN ( [facility] , ) Body mass index 23.2 kg/m2 23.2 kg/m2 MEDGEN (S t (BMI) [Ratio] [facility], ) Diastolic blood 70 mm[Hg] 70 mm[Hg] MEDGEN (S t pressure [facility]) Systolic blood 140 mm[Hg] 140 mm[Hg] MEDGEN ([facility]) Body weight 131 lb 131 lb MEDGEN ([facility]) Body height 63 in 63 in MEDGEN ([facility]) Heart rate 84 /min 84 /min MEDGEN ([facility] , ) Respiratory rate 14 /min 14 /min MEDGEN ( [facility] , ) Body mass index 23.2 kg/m2 23.2 kg/m2 MEDGEN (S t (BMI) [Ratio] [facility], ) Diastolic blood 70 mm[Hg] 70 mm[Hg] MEDGEN (S t pressure [facility]) Systolic blood 140 mm[Hg] 140 mm[Hg] MEDGEN ([facility] , ) Body weight 131 lb 131 lb MED[facility] ([facility]) Body height 63 in 63 in MEDGEN ([facility]) Heart rate 84 /min 84 /min MEDGEN ([facility]) Respiratory rate 14 /min 14 /min MEDGEN ( [facility]) Body mass index 23.2 kg/m2 23.2 kg/m2 MEDGEN (S t (BMI) [Ratio] [facility], ) Diastolic blood 70 mm[Hg] 70 mm[Hg] MEDGEN (S t pressure [facility] , ) Systolic blood 140 mm[Hg] 140 mm[Hg] MEDGEN ([facility] , ) Body weight 131 lb 131 lb MEDGEN ([facility]) Body height 63 in 63 in MEDGEN ([facility]) Heart rate 68 /min 68 /min MEDGEN ([facility]) Respiratory rate 15 /min 15 /min MEDGEN ( [facility]) Inhaled oxygen 96 % 96 % MEDGEN ([facility]) Body mass index 23.7 kg/m2 23.7 kg/m2 MEDGEN (S t (BMI) [Ratio] [facility], ) Diastolic blood 83 mm[Hg] 83 mm[Hg] MEDGEN (S t pressure [facility]) Systolic blood 155 mm[Hg] 155 mm[Hg] MEDGEN ([facility]) Body weight 134 lb 134 lb MEDGEN ([facility]) Body height 63 in 63 in MEDGEN ([facility]) Heart rate 68 /min 68 /min MEDGEN ([facility]) Respiratory rate 15 /min 15 /min MEDGEN ( [facility]) Inhaled oxygen 96 % 96 % MEDGEN ([facility]) Body mass index 23.7 kg/m2 23.7 kg/m2 MEDGEN (S t (BMI) [Ratio] [facility]) Diastolic blood 83 mm[Hg] 83 mm[Hg] [facility]) Systolic blood 155 mm[Hg] 155 mm[Hg] MEDGEN ([facility]) Body weight 134 lb 134 lb MEDGEN ([facility]) Body height 63 in 63 in MEDGEN ([facility]) Heart rate 68 /min 68 /min MED[facility] ([facility]) Respiratory rate 15 /min 15 /min MEDGEN ( [facility]) Inhaled oxygen 96 % 96 % MEDGEN ([facility]) Body mass index 23.7 kg/m2 23.7 kg/m2 MEDGEN (S t (BMI) [Ratio] [facility], ) Diastolic blood 83 mm[Hg] 83 mm[Hg] MEDGEN (S t pressure [facility] , ) Systolic blood 155 mm[Hg] 155 mm[Hg] MEDGEN ([facility] , ) Body weight 134 lb 134 lb MEDGEN ([facility]) Body height 63 in 63 in MEDGEN ([facility] , ) Heart rate 68 /min 68 /min MED[facility] ([facility] , ) Respiratory rate 15 /min 15 /min MEDGEN ( [facility] , ) Inhaled oxygen 96 % 96 % MEDGEN ([facility], ) Body mass index 23.7 kg/m2 23.7 kg/m2 MEDGEN (S t (BMI) [Ratio] [facility], ) Diastolic blood 83 mm[Hg] 83 mm[Hg] MEDGEN (S t pressure [facility] , ) Systolic blood 155 mm[Hg] 155 mm[Hg] MEDGEN ([facility] , ) Body weight 134 lb 134 lb MEDGEN ([facility] , ) Body height 63 in 63 in MEDGEN ([facility] , ) Heart rate 68 /min 68 /min MED[facility] ([facility] , ) Respiratory rate 15 /min 15 /min MEDGEN ( [facility] , ) Inhaled oxygen 96 % 96 % MEDGEN ([facility], ) Body mass index 23.7 kg/m2 23.7 kg/m2 MEDGEN (S t (BMI) [Ratio] [facility], ) Diastolic blood 83 mm[Hg] 83 mm[Hg] MEDGEN (S t pressure [facility] , ) Systolic blood 155 mm[Hg] 155 mm[Hg] MEDGEN ([facility] , ) Body weight 134 lb 134 lb MEDGEN ([facility] , ) Body height 63 in 63 in MEDGEN ([facility]) Heart rate 68 /min 68 /min MEDGEN ([facility] , ) Respiratory rate 15 /min 15 /min MEDGEN ( [facility] , ) Inhaled oxygen 96 % 96 % MEDGEN ([facility], ) Body mass index 23.7 kg/m2 23.7 kg/m2 MEDGEN (S t (BMI) [Ratio] [facility], ) Diastolic blood 83 mm[Hg] 83 mm[Hg] MEDGEN (S t pressure [facility] , ) Systolic blood 155 mm[Hg] 155 mm[Hg] MEDGEN (St [facility] , ) Body weight 134 lb 134 lb MEDGEN ([facility] , ) Body height 63 in 63 in MEDGEN ([facility] , ) Heart rate 68 /min 68 /min MEDGEN ([facility] , ) Respiratory rate 15 /min 15 /min MEDGEN ( [facility] , ) Inhaled oxygen 96 % 96 % MEDGEN (St concentration [facility], ) Body mass index 23.7 kg/m2 23.7 kg/m2 MEDGEN (S t (BMI) [Ratio] [facility], ) Diastolic blood 83 mm[Hg] 83 mm[Hg] MEDGEN (S t [facility] , ) Systolic blood 155 mm[Hg] 155 mm[Hg] MEDGEN ([facility] , ) Body weight 134 lb 134 lb MEDGEN ([facility] , ) Body height 63 in 63 in [facility] ([facility] , ) Heart rate 68 /min 68 /min [facility] ([facility] , ) Respiratory rate 15 /min 15 /min MEDGEN ( [facility] , ) Inhaled oxygen 96 % 96 % MEDGEN ([facility], ) Body mass index 23.7 kg/m2 23.7 kg/m2 MEDGEN (S t (BMI) [Ratio] [facility], ) Diastolic blood 83 mm[Hg] 83 mm[Hg] MEDGEN (S t [facility] , ) Systolic blood 155 mm[Hg] 155 mm[Hg] MEDGEN ([facility] , ) Body weight 134 lb 134 lb MEDGEN ([facility] , ) Body height 63 in 63 in MEDGEN ([facility] , ) Heart rate 68 /min 68 /min MEDGEN ([facility] , ) Respiratory rate 15 /min 15 /min MEDGEN ( [facility] , ) Inhaled oxygen 96 % 96 % MEDGEN ([facility], ) Body mass index 23.7 kg/m2 23.7 kg/m2 MEDGEN (S t (BMI) [Ratio] [facility], ) Diastolic blood 83 mm[Hg] 83 mm[Hg] MEDGEN (S t pressure [facility] , ) Systolic blood 155 mm[Hg] 155 mm[Hg] MEDGEN ([facility] , ) Body weight 134 lb 134 lb MEDGEN ([facility] , ) Body height 63 in 63 in MEDGEN ([facility] , ) Heart rate 68 /min 68 /min MEDGEN ([facility] , ) Respiratory rate 15 /min 15 /min MEDGEN ( [facility] , ) Inhaled oxygen 96 % 96 % MEDGEN ([facility], ) Body mass index 23.7 kg/m2 23.7 kg/m2 MEDGEN (S t (BMI) [Ratio] [facility], ) Diastolic blood 83 mm[Hg] 83 mm[Hg] MEDGEN (S t pressure [facility] , ) Systolic blood 155 mm[Hg] 155 mm[Hg] MEDGEN ([facility] , ) Body weight 134 lb 134 lb MEDGEN ([facility] , ) Body height 63 in 63 in MEDGEN ([facility] , ) Heart rate 68 /min 68 /min MEDGEN ([facility] , ) Respiratory rate 15 /min 15 /min MEDGEN ( [facility] , ) Inhaled oxygen 96 % 96 % MEDGEN ([facility], ) Body mass index 23.7 kg/m2 23.7 kg/m2 MEDGEN (S t (BMI) [Ratio] [facility], ) Diastolic blood 83 mm[Hg] 83 mm[Hg] MEDGEN (S t pressure [facility] , ) Systolic blood 155 mm[Hg] 155 mm[Hg] MEDGEN ([facility] , ) Body weight 134 lb 134 lb MEDGEN ([facility] , ) Body height 63 in 63 in MEDGEN ([facility] , ) Heart rate 68 /min 68 /min MEDGEN ([facility] , ) Respiratory rate 15 /min 15 /min MEDGEN ( [facility] , ) Inhaled oxygen 96 % 96 % MEDGEN ([facility], ) Body mass index 23.7 kg/m2 23.7 kg/m2 MEDGEN (S t (BMI) [Ratio] [facility], ) Diastolic blood 83 mm[Hg] 83 mm[Hg] MEDGEN (S t pressure [facility]) Systolic blood 155 mm[Hg] 155 mm[Hg] MEDGEN ([facility]) Body weight 134 lb 134 lb MEDGEN ([facility]) Body height 63 in 63 in MEDGEN ([facility]) Heart rate 65 /min 65 /min MEDGEN ([facility]) Inhaled oxygen 96 % 96 % MEDGEN ([facility], ) Body mass index 23.7 kg/m2 23.7 kg/m2 MEDGEN (S t (BMI) [Ratio] [facility], ) Diastolic blood 82 mm[Hg] 82 mm[Hg] MEDGEN (S t pressure [facility]) Systolic blood 150 mm[Hg] 150 mm[Hg] MEDGEN ([facility]) Body weight 134 lb 134 lb MEDGEN ([facility]) Body height 63 in 63 in MEDGEN ([facility]) Heart rate 65 /min 65 /min MEDGEN ([facility]) Inhaled oxygen 96 % 96 % MEDGEN ([facility], ) Body mass index 23.7 kg/m2 23.7 kg/m2 MEDGEN (S t (BMI) [Ratio] [facility], ) Diastolic blood 82 mm[Hg] 82 mm[Hg] MEDGEN (S t pressure [facility]) Systolic blood 150 mm[Hg] 150 mm[Hg] MEDGEN ([facility]) Body weight 134 lb 134 lb MEDGEN ([facility]) Body height 63 in 63 in MEDGEN ([facility]) Heart rate 65 /min 65 /min MEDGEN ([facility]) Inhaled oxygen 96 % 96 % MEDGEN ([facility]) Body mass index 23.7 kg/m2 23.7 kg/m2 MEDGEN (S t (BMI) [Ratio] [facility], ) Diastolic blood 82 mm[Hg] 82 mm[Hg] MEDGEN (S t pressure [facility] , ) Systolic blood 150 mm[Hg] 150 mm[Hg] MEDGEN ([facility] , ) Body weight 134 lb 134 lb MEDGEN ([facility]) Body height 63 in 63 in MEDGEN ([facility]) Heart rate 65 /min 65 /min MEDGEN ([facility]) Inhaled oxygen 96 % 96 % MEDGEN ([facility], ) Body mass index 23.7 kg/m2 23.7 kg/m2 MEDGEN (S t (BMI) [Ratio] [facility], ) Diastolic blood 82 mm[Hg] 82 mm[Hg] MEDGEN (S t pressure [facility] , ) Systolic blood 150 mm[Hg] 150 mm[Hg] MEDGEN ([facility] , ) Body weight 134 lb 134 lb MEDGEN ([facility]) Body height 63 in 63 in MEDGEN ([facility]) Heart rate 65 /min 65 /min MEDGEN ([facility]) Inhaled oxygen 96 % 96 % MEDGEN ([facility], ) Body mass index 23.7 kg/m2 23.7 kg/m2 MEDGEN (S t (BMI) [Ratio] [facility], ) Diastolic blood 82 mm[Hg] 82 mm[Hg] MEDGEN (S t pressure [facility] , ) Systolic blood 150 mm[Hg] 150 mm[Hg] MEDGEN ([facility] , ) Body weight 134 lb 134 lb MEDGEN ([facility]) Body height 63 in 63 in MEDGEN ([facility]) Heart rate 65 /min 65 /min MEDGEN ([facility]) Inhaled oxygen 96 % 96 % MEDGEN ([facility], ) Body mass index 23.7 kg/m2 23.7 kg/m2 MEDGEN (S t (BMI) [Ratio] [facility], ) Diastolic blood 82 mm[Hg] 82 mm[Hg] MEDGEN (S t pressure [facility] , ) Systolic blood 150 mm[Hg] 150 mm[Hg] MEDGEN ([facility] , ) Body weight 134 lb 134 lb MEDGEN ([facility]) Body height 63 in 63 in MEDGEN ([facility]) Heart rate 65 /min 65 /min MEDGEN ([facility]) Inhaled oxygen 96 % 96 % MEDGEN ([facility]) Body mass index 23.7 kg/m2 23.7 kg/m2 MEDGEN (S t (BMI) [Ratio] [facility], ) Diastolic blood 82 mm[Hg] 82 mm[Hg] MEDGEN (S t [facility]) Systolic blood 150 mm[Hg] 150 mm[Hg] MEDGEN ([facility]) Body weight 134 lb 134 lb MEDGEN ([facility]) Body height 63 in 63 in MEDGEN ([facility]) Heart rate 65 /min 65 /min MEDGEN ([facility]) Inhaled oxygen 96 % 96 % MEDGEN ([facility], ) Body mass index 23.7 kg/m2 23.7 kg/m2 MEDGEN (S t (BMI) [Ratio] [facility], ) Diastolic blood 82 mm[Hg] 82 mm[Hg] [facility] Systolic blood 150 mm[Hg] 150 mm[Hg] MEDGEN ([facility]) Body weight 134 lb 134 lb MEDGEN ([facility]) Body height 63 in 63 in MEDGEN ([facility]) Heart rate 65 /min 65 /min MEDGEN ([facility]) Inhaled oxygen 96 % 96 % MEDGEN ([facility], ) Body mass index 23.7 kg/m2 23.7 kg/m2 MEDGEN (S t (BMI) [Ratio] [facility], ) Diastolic blood 82 mm[Hg] 82 mm[Hg] MEDGEN (S t pressure [facility]) Systolic blood 150 mm[Hg] 150 mm[Hg] MEDGEN ([facility]) Body weight 134 lb 134 lb MEDGEN ([facility]) Body height 63 in 63 in MEDGEN ([facility]) Heart rate 65 /min 65 /min MEDGEN ([facility]) Inhaled oxygen 96 % 96 % MEDGEN ([facility], ) Body mass index 23.7 kg/m2 23.7 kg/m2 MEDGEN (S t (BMI) [Ratio] [facility], ) Diastolic blood 82 mm[Hg] 82 mm[Hg] MEDGEN (S t pressure [facility] , ) Systolic blood 150 mm[Hg] 150 mm[Hg] MEDGEN ([facility] , ) Body weight 134 lb 134 lb MEDGEN ([facility]) Body height 63 in 63 in MEDGEN ([facility]) Heart rate 65 /min 65 /min MEDGEN ([facility]) Inhaled oxygen 96 % 96 % MEDGEN ([facility], ) Body mass index 23.7 kg/m2 23.7 kg/m2 MEDGEN (S t (BMI) [Ratio] [facility], ) Diastolic blood 82 mm[Hg] 82 mm[Hg] MEDGEN (S t pressure [facility] , ) Systolic blood 150 mm[Hg] 150 mm[Hg] MEDGEN ([facility] , ) Body weight 134 lb 134 lb MEDGEN ([facility]) Body height 63 in 63 in MEDGEN ([facility]) Heart rate 65 /min 65 /min MEDGEN ([facility]) Inhaled oxygen 96 % 96 % MEDGEN ([facility], ) Body mass index 23.7 kg/m2 23.7 kg/m2 MEDGEN (S t (BMI) [Ratio] [facility], ) Diastolic blood 82 mm[Hg] 82 mm[Hg] MEDGEN (S t pressure [facility] , ) Systolic blood 150 mm[Hg] 150 mm[Hg] MEDGEN ([facility] , ) Body weight 134 lb 134 lb MEDGEN ([facility]) Body height 63 in 63 in MEDGEN ([facility]) Heart rate 87 /min 87 /min MEDGEN ([facility]) Respiratory rate 14 /min 14 /min MEDGEN ( [facility]) Body temperature 98.7 F 98.7 F MEDGEN ( [facility] , ) Inhaled oxygen 96 % 96 % MEDGEN ([facility], ) Diastolic blood 99 mm[Hg] 99 mm[Hg] MEDGEN (S t pressure [facility] , ) Systolic blood 211 mm[Hg] 211 mm[Hg] MEDGEN ([facility] , ) Body weight 139 lb 139 lb MEDGEN ([facility] , ) Heart rate 87 /min 87 /min MEDGEN ([facility] , ) Respiratory rate 14 /min 14 /min MEDGEN ( [facility] , ) Body temperature 98.7 F 98.7 F MEDGEN ( [facility] , ) Inhaled oxygen 96 % 96 % MEDGEN ([facility], ) Diastolic blood 99 mm[Hg] 99 mm[Hg] MEDGEN (S t pressure [facility] , ) Systolic blood 211 mm[Hg] 211 mm[Hg] MEDGEN ([facility] , ) Body weight 139 lb 139 lb MEDGEN ([facility] , ) Heart rate 87 /min 87 /min MEDGEN ([facility] , ) Respiratory rate 14 /min 14 /min MEDGEN ( [facility] , ) Body temperature 98.7 F 98.7 F MEDGEN ( [facility] , ) Inhaled oxygen 96 % 96 % MEDGEN ([facility], ) Diastolic blood 99 mm[Hg] 99 mm[Hg] MEDGEN (S t pressure [facility] , ) Systolic blood 211 mm[Hg] 211 mm[Hg] MEDGEN ([facility] , ) Body weight 139 lb 139 lb MEDGEN ([facility] , ) Heart rate 87 /min 87 /min MEDGEN ([facility] , ) Respiratory rate 14 /min 14 /min MEDGEN ( [facility] , ) Body temperature 98.7 F 98.7 F MEDGEN ( [facility] , ) Inhaled oxygen 96 % 96 % MEDGEN ([facility], ) Diastolic blood 99 mm[Hg] 99 mm[Hg] MEDGEN (S t pressure [facility] , ) Systolic blood 211 mm[Hg] 211 mm[Hg] MEDGEN (St pressure [facility] , ) Body weight 139 lb 139 lb MEDGEN ([facility] , ) Heart rate 87 /min 87 /min MEDGEN ([facility] , ) Respiratory rate 14 /min 14 /min MEDGEN ( [facility] , ) Body temperature 98.7 F 98.7 F MEDGEN ( [facility] , ) Inhaled oxygen 96 % 96 % MEDGEN (St concentration [facility], ) Diastolic blood 99 mm[Hg] 99 mm[Hg] MEDGEN (S t pressure [facility] , ) Systolic blood 211 mm[Hg] 211 mm[Hg] MEDGEN ([facility] , ) Body weight 139 lb 139 lb MEDGEN ([facility] , ) Heart rate 87 /min 87 /min MEDGEN ([facility] , ) Respiratory rate 14 /min 14 /min MEDGEN ( [facility] , ) Body temperature 98.7 F 98.7 F MEDGEN ( [facility] , ) Inhaled oxygen 96 % 96 % MEDGEN (St concentration [facility], ) Diastolic blood 99 mm[Hg] 99 mm[Hg] MEDGEN (S t pressure [facility] , ) Systolic blood 211 mm[Hg] 211 mm[Hg] MEDGEN ([facility] , ) Body weight 139 lb 139 lb MEDGEN ([facility] , ) Heart rate 87 /min 87 /min MEDGEN ([facility] , ) Respiratory rate 14 /min 14 /min MEDGEN ( [facility] , ) Body temperature 98.7 F 98.7 F MEDGEN ( [facility] , ) Inhaled oxygen 96 % 96 % MEDGEN ( concentration [facility], ) Diastolic blood 99 mm[Hg] 99 mm[Hg] MEDGEN (S t pressure [facility] , ) Systolic blood 211 mm[Hg] 211 mm[Hg] MEDGEN ([facility] , ) Body weight 139 lb 139 lb MEDGEN ([facility] , ) Heart rate 87 /min 87 /min MEDGEN ([facility] , ) Respiratory rate 14 /min 14 /min MEDGEN ( [facility] , ) Body temperature 98.7 F 98.7 F MEDGEN ( [facility] , ) Inhaled oxygen 96 % 96 % MEDGEN (St concentration [facility], ) Diastolic blood 99 mm[Hg] 99 mm[Hg] MEDGEN (S t pressure [facility] , ) Systolic blood 211 mm[Hg] 211 mm[Hg] MEDGEN (St pressure [facility] , ) Body weight 139 lb 139 lb MEDGEN ([facility] , ) Heart rate 87 /min 87 /min MEDGEN ([facility] , ) Respiratory rate 14 /min 14 /min MEDGEN ( [facility] , ) Body temperature 98.7 F 98.7 F MEDGEN ( [facility] , ) Inhaled oxygen 96 % 96 % MEDGEN ([facility], ) Diastolic blood 99 mm[Hg] 99 mm[Hg] MEDGEN (S t pressure [facility] , ) Systolic blood 211 mm[Hg] 211 mm[Hg] MEDGEN (St pressure [facility] , ) Body weight 139 lb 139 lb MEDGEN ([facility] , ) Heart rate 87 /min 87 /min MEDGEN ([facility] , ) Respiratory rate 14 /min 14 /min MEDGEN ( [facility] , ) Body temperature 98.7 F 98.7 F MEDGEN ( [facility] , ) Inhaled oxygen 96 % 96 % MEDGEN (St concentration [facility], ) Diastolic blood 99 mm[Hg] 99 mm[Hg] MEDGEN (S t pressure [facility] , ) Systolic blood 211 mm[Hg] 211 mm[Hg] MEDGEN (St pressure [facility] , ) Body weight 139 lb 139 lb MEDGEN ([facility] , ) Heart rate 87 /min 87 /min MEDGEN ([facility] , ) Respiratory rate 14 /min 14 /min MEDGEN ( [facility] , ) Body temperature 98.7 F 98.7 F MEDGEN ( [facility] , ) Inhaled oxygen 96 % 96 % MEDGEN (St concentration [facility], ) Diastolic blood 99 mm[Hg] 99 mm[Hg] MEDGEN (S t pressure [facility]) Systolic blood 211 mm[Hg] 211 mm[Hg] MEDGEN ([facility]) Body weight 139 lb 139 lb MEDGEN ([facility]) Heart rate 87 /min 87 /min MEDGEN ([facility]) Respiratory rate 14 /min 14 /min MEDGEN ( [facility]) Body temperature 98.7 F 98.7 F MEDGEN ( [facility]) Inhaled oxygen 96 % 96 % MEDGEN ([facility], ) Diastolic blood 99 mm[Hg] 99 mm[Hg] MEDGEN (S t pressure [facility]) Systolic blood 211 mm[Hg] 211 mm[Hg] MEDGEN ([facility]) Body weight 139 lb 139 lb MEDGEN ([facility]) Heart rate 72 /min 72 /min MEDGEN ([facility]) Respiratory rate 14 /min 14 /min MEDGEN ( [facility]) Body mass index 23.4 kg/m2 23.4 kg/m2 MEDGEN (S t (BMI) [Ratio] [facility], ) Diastolic blood 80 mm[Hg] 80 mm[Hg] MEDGEN (S t [facility]) Systolic blood 130 mm[Hg] 130 mm[Hg] MEDGEN ([facility]) Body weight 132 lb 132 lb MEDGEN ([facility]) Body height 63 in 63 in MEDGEN ([facility]) Heart rate 72 /min 72 /min MEDGEN ([facility]) Respiratory rate 14 /min 14 /min MEDGEN ( [facility]) Body mass index 23.4 kg/m2 23.4 kg/m2 MEDGEN (S t (BMI) [Ratio] [facility], ) Diastolic blood 80 mm[Hg] 80 mm[Hg] MEDGEN (S t pressure [facility]) Systolic blood 130 mm[Hg] 130 mm[Hg] MEDGEN ([facility]) Body weight 132 lb 132 lb MEDGEN ([facility]) Body height 63 in 63 in MEDGEN ([facility]) Heart rate 72 /min 72 /min MEDGEN ([facility] , ) Respiratory rate 14 /min 14 /min MEDGEN ( [facility] , ) Body mass index 23.4 kg/m2 23.4 kg/m2 MEDGEN (S t (BMI) [Ratio] [facility], ) Diastolic blood 80 mm[Hg] 80 mm[Hg] MEDGEN (S t pressure [facility] , ) Systolic blood 130 mm[Hg] 130 mm[Hg] MEDGEN (St pressure [facility] , ) Body weight 132 lb 132 lb MEDGEN ([facility] , ) Body height 63 in 63 in MEDGEN ([facility] , ) Heart rate 72 /min 72 /min MEDGEN ([facility] , ) Respiratory rate 14 /min 14 /min MEDGEN ( [facility] , ) Body mass index 23.4 kg/m2 23.4 kg/m2 MEDGEN (S t (BMI) [Ratio] [facility], ) Diastolic blood 80 mm[Hg] 80 mm[Hg] MEDGEN (S t pressure [facility] , ) Systolic blood 130 mm[Hg] 130 mm[Hg] MEDGEN ([facility] , ) Body weight 132 lb 132 lb MEDGEN ([facility] , ) Body height 63 in 63 in MEDGEN ([facility] , ) Heart rate 72 /min 72 /min MEDGEN ([facility] , ) Respiratory rate 14 /min 14 /min MEDGEN ( [facility] , ) Body mass index 23.4 kg/m2 23.4 kg/m2 MEDGEN (S t (BMI) [Ratio] [facility], ) Diastolic blood 80 mm[Hg] 80 mm[Hg] MEDGEN (S t pressure [facility] , ) Systolic blood 130 mm[Hg] 130 mm[Hg] MEDGEN (St pressure [facility] , ) Body weight 132 lb 132 lb MEDGEN ([facility] , ) Body height 63 in 63 in MEDGEN ([facility] , ) Heart rate 72 /min 72 /min MEDGEN ([facility] , ) Respiratory rate 14 /min 14 /min MEDGEN ( [facility] , ) Body mass index 23.4 kg/m2 23.4 kg/m2 MEDGEN (S t (BMI) [Ratio] [facility], ) Diastolic blood 80 mm[Hg] 80 mm[Hg] MEDGEN (S t pressure [facility] , ) Systolic blood 130 mm[Hg] 130 mm[Hg] MEDGEN ([facility] , ) Body weight 132 lb 132 lb MEDGEN ([facility]) Body height 63 in 63 in MEDGEN ([facility] , ) Heart rate 72 /min 72 /min MEDGEN ([facility]) Respiratory rate 14 /min 14 /min MEDGEN ( [facility]) Body mass index 23.4 kg/m2 23.4 kg/m2 MEDGEN (S t (BMI) [Ratio] [facility], ) Diastolic blood 80 mm[Hg] 80 mm[Hg] MEDGEN (S t pressure [facility] , ) Systolic blood 130 mm[Hg] 130 mm[Hg] MEDGEN ([facility] , ) Body weight 132 lb 132 lb MEDGEN ([facility]) Body height 63 in 63 in MEDGEN ([facility]) Heart rate 72 /min 72 /min MEDGEN ([facility]) Respiratory rate 14 /min 14 /min MEDGEN ( [facility]) Body mass index 23.4 kg/m2 23.4 kg/m2 MEDGEN (S t (BMI) [Ratio] [facility], ) Diastolic blood 80 mm[Hg] 80 mm[Hg] MEDGEN (S t pressure [facility] , ) Systolic blood 130 mm[Hg] 130 mm[Hg] MEDGEN ([facility] , ) Body weight 132 lb 132 lb MEDGEN ([facility]) Body height 63 in 63 in MEDGEN ([facility] , ) Heart rate 72 /min 72 /min MEDGEN ([facility]) Respiratory rate 14 /min 14 /min MEDGEN ( [facility] , ) Body mass index 23.4 kg/m2 23.4 kg/m2 MEDGEN (S t (BMI) [Ratio] [facility], ) Diastolic blood 80 mm[Hg] 80 mm[Hg] MEDGEN (S t pressure [facility] , ) Systolic blood 130 mm[Hg] 130 mm[Hg] MEDGEN ([facility] , ) Body weight 132 lb 132 lb MEDGEN ([facility] , ) Body height 63 in 63 in MEDGEN ([facility] , ) Body weight 132 lb 132 lb MEDGEN ([facility] , ) Body height 63 in 63 in MEDGEN ([facility] , ) Heart rate 72 /min 72 /min MEDGEN ([facility] , ) Respiratory rate 14 /min 14 /min MEDGEN ( [facility] , ) Body mass index 23.4 kg/m2 23.4 kg/m2 MEDGEN (S t (BMI) [Ratio] [facility], ) Diastolic blood 80 mm[Hg] 80 mm[Hg] MEDGEN (S t pressure [facility] , ) Systolic blood 130 mm[Hg] 130 mm[Hg] MEDGEN (St pressure [facility] , ) Heart rate 72 /min 72 /min MEDGEN ([facility] , ) Respiratory rate 14 /min 14 /min MEDGEN ( [facility] , ) Body mass index 23.4 kg/m2 23.4 kg/m2 MEDGEN (S t (BMI) [Ratio] [facility], ) Diastolic blood 80 mm[Hg] 80 mm[Hg] MEDGEN (S t pressure [facility] , ) Systolic blood 130 mm[Hg] 130 mm[Hg] MEDGEN ([facility] , ) Body weight 132 lb 132 lb MEDGEN ([facility] , ) Body height 63 in 63 in MEDGEN ([facility] , ) Heart rate 72 /min 72 /min MEDGEN ([facility] , ) Respiratory rate 14 /min 14 /min MEDGEN ( [facility] , ) Body mass index 23.4 kg/m2 23.4 kg/m2 MEDGEN (S t (BMI) [Ratio] [facility], ) Diastolic blood 80 mm[Hg] 80 mm[Hg] MEDGEN (S t pressure [facility]) Systolic blood 130 mm[Hg] 130 mm[Hg] MEDGEN ([facility]) Body weight 132 lb 132 lb MEDGEN ([facility]) Body height 63 in 63 in MEDGEN ([facility]) Heart rate 69 /min 69 /min MEDGEN ([facility]) Inhaled oxygen 98 % 98 % MEDGEN ([facility], ) Body mass index 23 kg/m2 23 kg/m2 MEDGEN (S t (BMI) [Ratio] [facility], ) Diastolic blood 110 mm[Hg] 110 mm[Hg] MEDGEN (S t pressure [facility]) Systolic blood 240 mm[Hg] 240 mm[Hg] MEDGEN ([facility]) Body weight 130 lb 130 lb MEDGEN ([facility]) Body height 63 in 63 in MEDGEN ([facility]) Heart rate 69 /min 69 /min MEDGEN ([facility]) Inhaled oxygen 98 % 98 % MEDGEN ([facility], ) Body mass index 23 kg/m2 23 kg/m2 MEDGEN (S t (BMI) [Ratio] [facility], ) Diastolic blood 110 mm[Hg] 110 mm[Hg] MEDGEN (S t pressure [facility]) Systolic blood 240 mm[Hg] 240 mm[Hg] MEDGEN ([facility]) Body weight 130 lb 130 lb MEDGEN ([facility]) Body height 63 in 63 in MEDGEN ([facility]) Heart rate 69 /min 69 /min MEDGEN ([facility]) Inhaled oxygen 98 % 98 % MEDGEN ([facility], ) Body mass index 23 kg/m2 23 kg/m2 MEDGEN (S t (BMI) [Ratio] [facility], ) Diastolic blood 110 mm[Hg] 110 mm[Hg] MEDGEN (S pressure [facility]) Systolic blood 240 mm[Hg] 240 mm[Hg] MEDGEN ([facility]) Body weight 130 lb 130 lb MEDGEN ([facility]) Body height 63 in 63 in MEDGEN ([facility]) Heart rate 69 /min 69 /min MEDGEN ([facility]) Inhaled oxygen 98 % 98 % MEDGEN ([facility], ) Body mass index 23 kg/m2 23 kg/m2 MEDGEN (S t (BMI) [Ratio] [facility], ) Diastolic blood 110 mm[Hg] 110 mm[Hg] MEDGEN (S t pressure [facility]) Systolic blood 240 mm[Hg] 240 mm[Hg] MEDGEN ([facility]) Body weight 130 lb 130 lb MEDGEN ([facility]) Body height 63 in 63 in MEDGEN ([facility]) Body mass index 23 kg/m2 23 kg/m2 MEDGEN (S t (BMI) [Ratio] [facility], ) Diastolic blood 110 mm[Hg] 110 mm[Hg] MEDGEN (S t [facility]) Systolic blood 240 mm[Hg] 240 mm[Hg] MEDGEN ([facility]) Body weight 130 lb 130 lb MEDGEN ([facility]) Body height 63 in 63 in MEDGEN ([facility]) Heart rate 69 /min 69 /min MEDGEN ([facility]) Inhaled oxygen 98 % 98 % MEDGEN ([facility], ) Heart rate 69 /min 69 /min MEDGEN ([facility]) Inhaled oxygen 98 % 98 % MEDGEN ([facility], ) Body mass index 23 kg/m2 23 kg/m2 MEDGEN (S t (BMI) [Ratio] [facility], ) Diastolic blood 110 mm[Hg] 110 mm[Hg] MEDGEN (S t pressure [facility]) Systolic blood 240 mm[Hg] 240 mm[Hg] MEDGEN ([facility]) Body weight 130 lb 130 lb MEDGEN ([facility]) Body height 63 in 63 in MEDGEN ([facility]) Heart rate 69 /min 69 /min MEDGEN ([facility]) Inhaled oxygen 98 % 98 % MEDGEN ([facility], ) Body mass index 23 kg/m2 23 kg/m2 MEDGEN (S t (BMI) [Ratio] [facility], ) Diastolic blood 110 mm[Hg] 110 mm[Hg] MEDGEN (S t pressure [facility]) Systolic blood 240 mm[Hg] 240 mm[Hg] MEDGEN ([facility]) Body weight 130 lb 130 lb MEDGEN ([facility]) Body height 63 in 63 in MEDGEN ([facility]) Heart rate 69 /min 69 /min MEDGEN ([facility]) Inhaled oxygen 98 % 98 % MEDGEN ([facility], ) Body mass index 23 kg/m2 23 kg/m2 MEDGEN (S t (BMI) [Ratio] [facility], ) Diastolic blood 110 mm[Hg] 110 mm[Hg] MEDGEN (S t pressure [facility] , ) Systolic blood 240 mm[Hg] 240 mm[Hg] MEDGEN ([facility]) Body weight 130 lb 130 lb MEDGEN ([facility]) Body height 63 in 63 in MEDGEN ([facility]) Heart rate 69 /min 69 /min MEDGEN ([facility]) Inhaled oxygen 98 % 98 % MEDGEN ([facility], ) Body mass index 23 kg/m2 23 kg/m2 MEDGEN (S t (BMI) [Ratio] [facility], ) Diastolic blood 110 mm[Hg] 110 mm[Hg] MEDGEN (S t pressure [facility]) Systolic blood 240 mm[Hg] 240 mm[Hg] MEDGEN ([facility]) Body weight 130 lb 130 lb MEDGEN ([facility]) Body height 63 in 63 in MEDGEN ([facility]) Heart rate 69 /min 69 /min MEDGEN ([facility]) Inhaled oxygen 98 % 98 % MEDGEN ([facility], ) Body mass index 23 kg/m2 23 kg/m2 MEDGEN (S t (BMI) [Ratio] [facility], ) Diastolic blood 110 mm[Hg] 110 mm[Hg] MEDGEN (S t pressure [facility]) Systolic blood 240 mm[Hg] 240 mm[Hg] MEDGEN ([facility]) Body weight 130 lb 130 lb MEDGEN ([facility]) Body height 63 in 63 in MEDGEN ([facility]) Heart rate 69 /min 69 /min MEDGEN ([facility]) Inhaled oxygen 98 % 98 % MEDGEN ([facility]) Body mass index 23 kg/m2 23 kg/m2 MEDGEN (S t (BMI) [Ratio] [facility]) Diastolic blood 110 mm[Hg] 110 mm[Hg] MEDGEN (S t pressure [facility]) Systolic blood 240 mm[Hg] 240 mm[Hg] MEDGEN ([facility]) Body weight 130 lb 130 lb MEDGEN ([facility]) Body height 63 in 63 in MEDGEN ([facility]) Heart rate 69 /min 69 /min MEDGEN ([facility]) Inhaled oxygen 98 % 98 % MEDGEN ([facility]) Body mass index 23 kg/m2 23 kg/m2 MEDGEN (S t (BMI) [Ratio] [facility]) Diastolic blood 110 mm[Hg] 110 mm[Hg] MEDGEN (S t pressure [facility]) Systolic blood 240 mm[Hg] 240 mm[Hg] MEDGEN ([facility]) Body weight 130 lb 130 lb MEDGEN ([facility]) Body height 63 in 63 in MEDGEN ([facility]) Heart rate 68 /min 68 /min MEDGEN ([facility]) Body temperature 98.1 F 98.1 F MEDGEN ( [facility]) Inhaled oxygen 99 % 99 % MEDGEN ([facility]) Body mass index 22.7 kg/m2 22.7 kg/m2 MEDGEN (S t (BMI) [Ratio] [facility]) Diastolic blood 90 mm[Hg] 90 mm[Hg] MEDGEN (S t pressure [facility]) Systolic blood 192 mm[Hg] 192 mm[Hg] MEDGEN ([facility]) Body weight 132 lb 132 lb MEDGEN ([facility]) Body height 64 in 64 in MEDGEN ([facility]) Heart rate 68 /min 68 /min MEDGEN ([facility]) Body temperature 98.1 F 98.1 F MEDGEN ( [facility]) Inhaled oxygen 99 % 99 % MEDGEN ([facility], ) Body mass index 22.7 kg/m2 22.7 kg/m2 MEDGEN (S t (BMI) [Ratio] [facility], ) Diastolic blood 90 mm[Hg] 90 mm[Hg] MEDGEN (S t [facility]) Systolic blood 192 mm[Hg] 192 mm[Hg] MEDGEN ([facility]) Body weight 132 lb 132 lb MEDGEN ([facility]) Body height 64 in 64 in MEDGEN ([facility]) Heart rate 68 /min 68 /min MEDGEN ([facility]) Body temperature 98.1 F 98.1 F MEDGEN ( [facility]) Inhaled oxygen 99 % 99 % MEDGEN ([facility]) Body mass index 22.7 kg/m2 22.7 kg/m2 MEDGEN (S t (BMI) [Ratio] [facility], ) Diastolic blood 90 mm[Hg] 90 mm[Hg] MEDGEN (S t pressure [facility]) Systolic blood 192 mm[Hg] 192 mm[Hg] MEDGEN ([facility]) Body weight 132 lb 132 lb MEDGEN ([facility]) Body height 64 in 64 in MEDGEN ([facility]) Heart rate 68 /min 68 /min MEDGEN ([facility]) Body temperature 98.1 F 98.1 F MEDGEN ( [facility]) Inhaled oxygen 99 % 99 % MEDGEN ([facility]) Body mass index 22.7 kg/m2 22.7 kg/m2 MEDGEN (S t (BMI) [Ratio] [facility], ) Diastolic blood 90 mm[Hg] 90 mm[Hg] MEDGEN (S t pressure [facility]) Systolic blood 192 mm[Hg] 192 mm[Hg] MEDGEN ([facility]) Body weight 132 lb 132 lb MEDGEN ([facility]) Body height 64 in 64 in MEDGEN ([facility]) Heart rate 68 /min 68 /min MEDGEN ([facility]) Body temperature 98.1 F 98.1 F MEDGEN ( [facility]) Inhaled oxygen 99 % 99 % MEDGEN ([facility], ) Body mass index 22.7 kg/m2 22.7 kg/m2 MEDGEN (S t (BMI) [Ratio] [facility], ) Diastolic blood 90 mm[Hg] 90 mm[Hg] MEDGEN (S t pressure [facility]) Systolic blood 192 mm[Hg] 192 mm[Hg] MEDGEN ([facility]) Body weight 132 lb 132 lb MEDGEN ([facility]) Body height 64 in 64 in MEDGEN ([facility]) Heart rate 68 /min 68 /min MEDGEN ([facility]) Body temperature 98.1 F 98.1 F MEDGEN ( [facility]) Inhaled oxygen 99 % 99 % MEDGEN ([facility], ) Body mass index 22.7 kg/m2 22.7 kg/m2 MEDGEN (S t (BMI) [Ratio] [facility], ) Diastolic blood 90 mm[Hg] 90 mm[Hg] MEDGEN (S t pressure [facility]) Systolic blood 192 mm[Hg] 192 mm[Hg] MEDGEN ([facility]) Body weight 132 lb 132 lb MEDGEN ([facility]) Body height 64 in 64 in MEDGEN ([facility]) Heart rate 68 /min 68 /min MEDGEN ([facility]) Body temperature 98.1 F 98.1 F MEDGEN ( [facility]) Inhaled oxygen 99 % 99 % MEDGEN ([facility], ) Body mass index 22.7 kg/m2 22.7 kg/m2 MEDGEN (S t (BMI) [Ratio] [facility], ) Diastolic blood 90 mm[Hg] 90 mm[Hg] MEDGEN (S t pressure [facility] , ) Systolic blood 192 mm[Hg] 192 mm[Hg] MEDGEN ([facility] [place] , ) Body weight 132 lb 132 lb MEDGEN ([facility]) Body height 64 in 64 in MEDGEN ([facility]) Body temperature 98.1 F 98.1 F MEDGEN ( [facility]) Inhaled oxygen 99 % 99 % MEDGEN ([facility], ) Body mass index 22.7 kg/m2 22.7 kg/m2 MEDGEN (S t (BMI) [Ratio] [facility], ) Diastolic blood 90 mm[Hg] 90 mm[Hg] MEDGEN (S t pressure [facility] , ) Systolic blood 192 mm[Hg] 192 mm[Hg] MEDGEN ([facility] , ) Body weight 132 lb 132 lb MEDGEN ([facility]) Body height 64 in 64 in MEDGEN ([facility]) Heart rate 68 /min 68 /min MEDGEN ([facility]) Heart rate 68 /min 68 /min MEDGEN ([facility]) Body temperature 98.1 F 98.1 F MEDGEN ( [facility]) Inhaled oxygen 99 % 99 % MEDGEN ([facility], ) Body mass index 22.7 kg/m2 22.7 kg/m2 MEDGEN (S t (BMI) [Ratio] [facility], ) Diastolic blood 90 mm[Hg] 90 mm[Hg] MEDGEN (S t pressure [facility] , ) Systolic blood 192 mm[Hg] 192 mm[Hg] MEDGEN ([facility] , ) Body weight 132 lb 132 lb MEDGEN ([facility]) Body height 64 in 64 in MEDGEN ([facility]) Heart rate 68 /min 68 /min MEDGEN ([facility]) Body temperature 98.1 F 98.1 F MEDGEN ( [facility]) Inhaled oxygen 99 % 99 % MEDGEN ([facility], ) Body mass index 22.7 kg/m2 22.7 kg/m2 MEDGEN (S t (BMI) [Ratio] [facility], ) Diastolic blood 90 mm[Hg] 90 mm[Hg] MEDGEN (S t pressure [facility]) Systolic blood 192 mm[Hg] 192 mm[Hg] MEDGEN ([facility]) Body weight 132 lb 132 lb MEDGEN ([facility]) Body height 64 in 64 in MEDGEN ([facility]) Heart rate 68 /min 68 /min MEDGEN ([facility]) Body temperature 98.1 F 98.1 F MEDGEN ( [facility]) Inhaled oxygen 99 % 99 % MEDGEN ([facility], ) Body mass index 22.7 kg/m2 22.7 kg/m2 MEDGEN (S t (BMI) [Ratio] [facility], ) Diastolic blood 90 mm[Hg] 90 mm[Hg] MEDGEN (S t pressure [facility]) Systolic blood 192 mm[Hg] 192 mm[Hg] MEDGEN ([facility]) Body weight 132 lb 132 lb MEDGEN ([facility]) Body height 64 in 64 in MEDGEN ([facility]) Heart rate 68 /min 68 /min MEDGEN ([facility]) Body temperature 98.1 F 98.1 F MEDGEN ( [facility]) Inhaled oxygen 99 % 99 % MEDGEN ([facility], ) Body mass index 22.7 kg/m2 22.7 kg/m2 MEDGEN (S t (BMI) [Ratio] [facility], ) Diastolic blood 90 mm[Hg] 90 mm[Hg] MEDGEN (S t pressure [facility]) Systolic blood 192 mm[Hg] 192 mm[Hg] MEDGEN ([facility]) Body weight 132 lb 132 lb MEDGEN ([facility]) Body height 64 in 64 in MEDGEN ([facility])
[2020-07-06] MEDS ORDERED: SODIUM CHLORIDE 0.45% 500 ML IV ONE (10:00)
[2020-07-06] MEDS ORDERED: DEXAMETHASONE SODIUM PHOSPHATE 20 MG, ONDANSETRON INJECTION 8 MG in SODIUM CHLORIDE 100 ML IVPB ONE (10:00)
[2020-07-06] MEDS ORDERED: CYCLOPHOSPHAMIDE PO ONE (10:30)
[2020-07-06] MEDS ORDERED: BORTEZOMIB (VELCADE) 2.5 MG/ML SUB-Q INJECTION SQ ONE (10:30)
[2020-07-06 10:57] LABS: EOS % 4.5 % (0-4.5); HEMATOCRIT 31.2 % (35.4-49); HEMOGLOBIN 10.4 GM/dL (11.7-16.9); LYMPH % 13.1 % (8-40); MCH 34.5 pg (25.7-33.7); MCHC 33.4 g/dl (32.0-35.9); MEAN CELL VOLUME 103.2 fl (80-96); MEAN PLT VOLUME 8.4 fl (7.5-11.1); NEUT % 66.4 % (42.8-82.8); PLATELET COUNT 140 K/MM3 (134-434); RBC 3.02 M/mm3 (4.00-5.60); RDW 20.4 % (11.9-15.9)
[2020-07-06 11:50] LABS: ALBUMIN 3.1 g/dl (3.4-5.0); ALK PHOS 84 U/L (45-117); BILIRUBIN,DIRECT < 0.1 mg/dL (0.0-0.2); BILIRUBIN,TOTAL 0.2 mg/dL (0.2-1); BLOOD UREA NITROGEN 30.8 mg/dL (7-18); CHLORIDE 110 mmol/L (98-107); CO2 21 mmol/L (21-32); GLUCOSE,RANDOM 109 mg/dL (74-106); LDH 789 U/L (87-246); MAGNESIUM 2.3 mg/dL (1.8-2.4); SGOT/AST 76 U/L (15-37); SODIUM 133 mmol/L (136-145); TOT PROT 8.8 g/dl (6.4-8.2); URIC ACID 6.2 mg/dL (2.6-7.2)
[2020-07-06 12:06] LABS: ANION GAP 2 MMOL/L (8-16); SGPT/ALT 31 U/L (13-61)
[2020-07-06 12:15] LABS: POTASSIUM 8.1 mmol/L (3.5-5.1)
[2020-07-06 13:36] LABS: ALBUMIN 3.4 g/dl (3.4-5.0); BILIRUBIN,DIRECT 0.1 mg/dL (0.0-0.2); BILIRUBIN,TOTAL 0.2 mg/dL (0.2-1); CALCIUM 8.4 mg/dL (8.5-10.1); CREATININE 3.9 mg/dL (0.55-1.3); MAGNESIUM 2.3 mg/dL (1.8-2.4); PHOSPHOROUS 2.6 mg/dL (2.5-4.9); POTASSIUM 3.9 mmol/L (3.5-5.1); TOT PROT 8.7 g/dl (6.4-8.2); URIC ACID 6.3 mg/dL (2.6-7.2)
[2020-07-06] MEDS: amLODIPine BESYLATE 5 MG TABLET (FP) PO ONE ×2 (14:12→14:34)
[2020-07-06 15:46] VITALS: TEMP 98.4
[2020-07-06 15:51] VITALS: BP 136/70; PULSE 60
== END 2020-07-06 14:20 | disposition home or self-care (01) ==
LOC: JONCCHEMO 06:18
PROVIDERS: ATTEND Internal Medicine Hematology & Oncology
PROC: 3E01305 Introduction of Other Antineoplastic into Subcutaneous Tissue, Percutaneous Approach (ICD-10-PCS; principal; 2020-07-06)
PROC: 3E033GC Introduction of Other Therapeutic Substance into Peripheral Vein, Percutaneous Approach (ICD-10-PCS; 2020-07-06)
PROC: 3E0337Z Introduction of Electrolytic and Water Balance Substance into Peripheral Vein, Percutaneous Approach (ICD-10-PCS; 2020-07-06)
DX: Z51.11 Encounter for antineoplastic chemotherapy (principal); D47.2 Monoclonal gammopathy
CPT/HCPCS: 36415; 80048; 80053; 80076; 83615; 83735; 84100; 84550; 85025; 96361; 96365; 96401; J9041

== ENCOUNTER 2020-07-13 06:48 | Day surgery (SDC) | payer OTHER ==
--- OUTSIDE RECORDS SUMMARY | 2020-07-13 07:16 | XMS ---
[...] is protected by Article 27-F of the [facility] Public Health law. If you continue you may haveaccess to information: Regarding HIV / AIDS; Provided by facilities licensed or operated by the [facility] Office of Mental Health; or Provided by the [facility] Office for People With Developmental Disabilities. If such information is present, then the following [facility] mandated warning applies: This information has been [...] law may result in a fine or senior living sentence or both. A general authorization for [...] Medical, PC) Office Attender: MD Jose Enrique wOen 06/14/2020 12:00:00 A M EDT MEDGEN (St [...] Outpatient 05/02/2020 10:37:00 AM EDT MULT MYEL [facility] MULT MYELOMA Attender: MD Jose Enrique Owen [...] 03/24/2020 12:00:00 AM E DT MEDGEN ([facility], ) Office Attender: Russell Kendall 03/24/2020 12:00:00 AM E DT MEDGEN ([facility], ) Office Attender: Russell Kendall 03/24/2020 12:00:00 AM E DT MEDGEN ([facility], ) Office Attender: Russell Kendall 03/24/2020 12:00:00 AM E DT MEDGEN ([facility], ) Office Attender: Russell Kendall 03/24/2020 12:00:00 AM E DT MEDGEN ([facility], ) Office Attender: Russell Kendall 03/24/2020 12:00:00 AM E DT MEDGEN ([facility], ) Office Attender: MD Jose Enrique Owen [...] Medical, PC) Office Outpatient 11/02/2019 04:18:00 PM [facility] Outpatient 11/02/2019 12:00:00 AM [facility] 10/21/2019 04:12:00 PM [facility] Patient admitted. Immunizations Vaccine Date Status Description [...] Brand Start Product Dose Route Administrative Pharmacy [facility] Indications Reaction Description Data Name Date Form Instructions Instructions Source(s) Famotidine FAMOTI 06/19/ TABLET 30 complet FAMOT IDINE MEDGEN (St 20 MG Oral DINE:3 2019 ed Juan C's Tablet 70880 12:00: Medical, FAMOTIDINE: 00 AM PC) [id number] EDT 24 HR NIFEDI 06/14/ TABLET, 90 complet NIFEDIPIN E MEDGEN (St Nifedipine PINE:1 2019 EXTENDED ed Vincent n's 60 MG 63666 12:00: RELEASE Medical, Extended 00 AM PC) Release EDT Oral Tablet NIFEDIPINE: [id number] Labetalol LABETA 06/14/ TABLET 60 complet LABETA LOL MEDGEN (St hydrochlori LOL:89 2019 ed Juan C's de 300 MG 6766 12:00: Medical, Oral Tablet 00 AM PC) LABETALOL:8 EDT 46103 Furosemide FUROSE 06/14/ TABLET 30 complet FUROS EMIDE MEDGEN (St 20 MG Oral MIDE:3 2019 ed Juan C's Tablet 46256 12:00: Medical, FUROSEMIDE: 00 AM PC) [id number] EDT Labetalol LABETA 06/14/ TABLET 60 complet LABETA LOL MEDGEN (St hydrochlori LOL:89 2019 ed Juan C's de 300 MG 6766 12:00: Medical, Oral Tablet 00 AM PC) LABETALOL:8 EDT 96466 Furosemide FUROSE 06/14/ TABLET 30 complet FUROS EMIDE MEDGEN (St 20 MG Oral MIDE:3 2019 ed Juan C's Tablet 25147 12:00: Medical, FUROSEMIDE: 00 AM PC) 138571 EDT 24 HR NIFEDI 06/14/ TABLET, 90 complet NIFEDIPIN E MEDGEN (St Nifedipine PINE:1 2019 EXTENDED ed Vincent n's 60 MG 12567 12:00: RELEASE Medical, Extended 00 AM PC) Release EDT Oral Tablet NIFEDIPINE: 19791209 Oxybutynin OXYBUT 06/13/ TABLET 30 complet OXYBU TYNIN MED[facility] (St chloride 5 YNIN:8 2019 ed Juan C's MG Oral 55488 12:00: Medical, Tablet 00 AM PC) OXYBUTYNIN: EDT 304030 Oxybutynin OXYBUT 06/13/ TABLET 30 complet OXYBU TYNIN MEDGEN (St chloride 5 YNIN:8 2019 ed Juan C's MG Oral 75852 12:00: Medical, Tablet 00 AM PC) OXYBUTYNIN: EDT 945594 Docusate DOCUSA 05/31/ CAPSULE 270 complet DOCUSA TE MEDGEN (St Sodium 100 TE:111 2019 ed Juan C's MG Oral 5005 12:00: Medical, Capsule 00 AM PC) DOCUSATE:11 EDT 22748 Hydroxyzine HYDROX complet HYDROX YZINE MEDGEN (St Hydrochlori YZINE: 2019 ed Juan C's de 10 MG 153022 12:00: Medical , Oral Tablet 00 AM PC) HYDROXYZINE EDT :007319 AQUAPHOR:20 05/31/ OINTMENT 1 complet AQUA PHOR MEDGEN (St 47320 2019 ed Juan C's 12:00: Medical, 00 AM PC) EDT AQUAPHOR:20 05/31/ OINTMENT 1 complet AQUA PHOR MEDGEN (St 13039 2019 ed Juan C's 12:00: Medical, 00 AM PC) EDT Docusate DOCUSA 05/31/ CAPSULE 270 complet DOCUSA TE MEDGEN (St Sodium 100 TE:111 2019 ed Juan C's MG Oral 5005 12:00: Medical, Capsule 00 AM PC) DOCUSATE:11 EDT 48524 Docusate DOCUSA 05/31/ CAPSULE 270 complet DOCUSA TE MEDGEN (St Sodium 100 TE:111 2019 ed Juan C's MG Oral 5005 12:00: Medical, Capsule 00 AM PC) DOCUSATE:11 EDT 70236 Hydroxyzine HYDROX complet HYDROX YZINE MEDGEN (St Hydrochlori YZINE: 2019 ed Juan C's de 10 MG 754252 12:00: Medical , Oral Tablet 00 AM PC) HYDROXYZINE EDT :719291 AQUAPHOR:20 05/31/ OINTMENT 1 complet AQUA PHOR MEDGEN (St 96357 2019 ed Juan C's 12:00: Medical, 00 AM PC) EDT Hydroxyzine HYDROX complet HYDROX YZINE MEDGEN (St Hydrochlori YZINE: 2019 ed Juan C's de 10 MG 863322 12:00: Medical , Oral Tablet 00 AM PC) HYDROXYZINE EDT :675882 Oxybutynin OXYBUT 05/10/ TABLET 30 complet OXYBU TYNIN MEDGEN (St chloride 5 YNIN:8 2019 ed Juan C's MG Oral 88934 12:00: Medical, Tablet 00 AM PC) OXYBUTYNIN: EDT 396044 24 HR NIFEDI 08/05/ TABLET, 90 complet NIFEDIPIN E MEDGEN (St Nifedipine PINE:1 2019 EXTENDED ed Vincent n's 30 MG 82883 12:00: RELEASE Medical, Extended 00 AM PC) Release EDT Oral Tablet NIFEDIPINE: [id number] 24 HR NIFEDI 08/05/ TABLET, 90 complet NIFEDIPIN E MEDGEN (St Nifedipine PINE:1 2019 EXTENDED ed Vincent n's 30 MG 36847 12:00: RELEASE Medical, Extended 00 AM PC) Release EDT Oral Tablet NIFEDIPINE: 19791208 Oxybutynin OXYBUT 08/05/ TABLET 30 complet OXYBU TYNIN MEDGEN (St chloride 5 YNIN:8 2019 ed Juan C's MG Oral 43248 12:00: Medical, Tablet 00 AM PC) OXYBUTYNIN: EDT 277561 Oxybutynin OXYBUT 08/05/ TABLET 30 complet OXYBU TYNIN MEDGEN (St chloride 5 YNIN:8 2019 ed Juan C's MG Oral 46593 12:00: Medical, Tablet 00 AM PC) OXYBUTYNIN: EDT 886948 24 HR NIFEDI 08/05/ TABLET, 90 complet NIFEDIPIN E MEDGEN (St Nifedipine PINE:1 2019 EXTENDED ed Vincent n's 30 MG 89001 12:00: RELEASE Medical, Extended 00 AM PC) Release EDT Oral Tablet NIFEDIPINE: 19791208 CHEONDOISM complet CHEONDOISM MEDGEN (St THERMOMETER 2020 ed THERMOMETER J ohn's MISCELLANEO 12:00: MISCELLANEO U Medical, US: 00 AM S PC) EDT CHEONDOISM complet CHEONDOISM MEDGEN (St THERMOMETER 2020 ed THERMOMETER J ohn's MISCELLANEO 12:00: MISCELLANEO U Medical, US: 00 AM S PC) EDT CHEONDOISM complet CHEONDOISM MEDGEN (St THERMOMETER 2020 ed THERMOMETER J ohn's MISCELLANEO 12:00: MISCELLANEO U Medical, US: 00 AM S PC) EDT CHEONDOISM complet CHEONDOISM MEDGEN (St THERMOMETER 2020 ed THERMOMETER J ohn's MISCELLANEO 12:00: MISCELLANEO U Medical, US: 00 AM S PC) EDT CHEONDOISM complet CHEONDOISM MEDGEN (St THERMOMETER 2019 ed THERMOMETER J [...] Oral APINE: 2019 ed Juan C's Tablet 237549 12:00: Medical, MIRTAZAPINE 00 AM PC) :595117 EDT Labetalol LABETA 05/05/ TABLET 60 complet LABETA LOL MEDGEN (St hydrochlori LOL:89 2019 ed Juan C's de 100 MG 6758 12:00: Medical, Oral Tablet 00 AM PC) LABETALOL:8 EDT 57624 Hydralazine HYDRAL 05/05/ TABLET 90 complet HYDR ALAZINE MEDGEN (St Hydrochlori AZINE: 2019 ed Juan C's de 25 MG 465529 12:00: Medical , Oral Tablet 00 AM PC) HYDRALAZINE EDT :601845 Furosemide FUROSE 05/05/ TABLET 30 complet FUROS EMIDE MEDGEN (St 20 MG Oral MIDE:3 2019 ed Juan C's Tablet 86775 12:00: Medical, FUROSEMIDE: 00 AM PC) 856367 EDT BLOOD complet BLOOD MEDGEN ( St [...] 2019 ed Juan C's de 25 MG 968210 12:00: Medical , Oral Tablet 00 AM PC) HYDRALAZINE EDT :878130 Furosemide FUROSE 05/05/ TABLET 30 complet FUROS EMIDE MEDGEN (St 20 MG Oral MIDE:3 2019 ed Juan C's Tablet 96047 12:00: Medical, FUROSEMIDE: 00 AM PC) 905873 EDT BLOOD complet BLOOD MEDGEN ( PRESSURE 2019 ed PRESSURE KIT Vincent n's KIT: 12:00: Medical, 00 AM PC) EDT Hydralazine HYDRAL 05/05/ TABLET 90 complet HYDR ALAZINE MEDGEN (St Hydrochlori AZINE: 2019 ed Juan C's de 25 MG 807716 12:00: Medical , Oral Tablet 00 AM PC) HYDRALAZINE EDT :983246 Sodium SODIUM 05/05/ TABLET 360 complet SODIUM [...] Oral APINE: 2019 ed Juan C's Tablet [id number] 12:00: Medical, MIRTAZAPINE 00 AM PC) :613602 EDT BLOOD complet BLOOD MEDGEN ( PRESSURE 2019 ed PRESSURE KIT Vincent n's KIT: 12:00: Medical, 00 AM PC) EDT Mirtazapine MIRTAZ 05/05/ TABLET 30 complet MIRT AZAPINE MEDGEN (St 7.5 MG Oral APINE: 2019 ed Juan C's Tablet 903502 12:00: Medical, MIRTAZAPINE 00 AM PC) :273093 EDT Sodium SODIUM 05/05/ TABLET 360 complet SODIUM ME DGEN (St Bicarbonate BICARB 2019 ed BICARBONATE Juan C's 650 MG Oral ZIA: 12:00: Medi nils, Tablet [id number] 00 AM PC) SODIUM EDT BICARBONATE :639960 Sodium SODIUM 05/05/ TABLET 360 complet SODIUM ME DGEN (St Bicarbonate BICARB 2019 ed BICARBONATE Juan C's 650 MG Oral ZIA: 12:00: Medi nils, Tablet [id number] 00 AM PC) SODIUM EDT BICARBONATE :19880306 Labetalol LABETA 05/05/ TABLET 60 complet LABETA LOL MEDGEN (St hydrochlori LOL:89 2019 ed Juan C's de 100 MG 6758 12:00: Medical, Oral Tablet 00 AM PC) LABETALOL:8 EDT 97366 Mirtazapine MIRTAZ 05/05/ TABLET 30 complet MIRT AZAPINE MEDGEN (St 7.5 MG Oral APINE: 2019 ed Juan C's Tablet [id number] 12:00: Medical, MIRTAZAPINE 00 AM PC) :499318 EDT Hydralazine HYDRAL 05/05/ TABLET 90 complet HYDR ALAZINE MEDGEN (St Hydrochlori AZINE: 2019 ed Juan C's de 25 MG 390840 12:00: Medical , Oral Tablet 00 AM PC) HYDRALAZINE EDT :415553 BLOOD complet BLOOD MEDGEN ( St PRESSURE 2020 ed PRESSURE KIT Vincent n's KIT: 12:00: Medical, 00 AM PC) EDT Labetalol LABETA 05/05/ TABLET 60 complet LABETA LOL MEDGEN (St hydrochlori LOL:89 2019 ed Juan C's de 100 MG 6758 12:00: Medical, Oral Tablet 00 AM PC) LABETALOL:8 EDT 11524 Hydralazine HYDRAL 05/05/ TABLET 90 complet HYDR ALAZINE MEDGEN (St Hydrochlori AZINE: 2019 ed Juan C's de 25 MG 593081 12:00: Medical , Oral Tablet 00 AM PC) HYDRALAZINE EDT :333079 Mirtazapine MIRTAZ 05/05/ TABLET 30 complet MIRT AZAPINE MEDGEN (St 7.5 MG Oral APINE: 2019 ed Juan C's Tablet 859114 12:00: Medical, MIRTAZAPINE 00 AM PC) :560255 EDT Furosemide FUROSE 05/05/ TABLET 30 complet FUROS EMIDE MEDGEN (St 20 MG Oral MIDE:3 2019 ed Juan C's Tablet 64434 12:00: Medical, FUROSEMIDE: 00 AM PC) 272974 EDT Allopurinol ALLOPU 05/05/ TABLET 30 complet ALLO PURINOL MEDGEN (St ALLOPURINOL RINOL: 2019 ed Juan C's :519 519 12:00: Medical, 00 AM PC) EDT BLOOD complet BLOOD MEDGEN ( St PRESSURE 2019 ed PRESSURE KIT Ivncent n's KIT: 12:00: Medical, 00 AM PC) [...] AM PC) Tablet 8907 EDT CALCIUM CARBONATE:3 34670 Calcium CALCIU 05/03/ TABLET, 360 complet CALCIUM MEDGEN (St Carbonate 2019 CHEWABLE ed CARBONATE J ohn's 500 MG CARBON 12:00: Medical, Chewable ATE:30 00 AM PC) Tablet 8907 EDT CALCIUM CARBONATE:3 36477 Calcium CALCIU 05/03/ TABLET, 360 complet CALCIUM MEDGEN (St Carbonate 2019 CHEWABLE ed CARBONATE J ohn's 500 MG CARBON 12:00: Medical, Chewable ATE:30 00 AM PC) Tablet 8907 EDT CALCIUM CARBONATE:3 01782 Calcium CALCIU 05/03/ TABLET, 360 complet CALCIUM MEDGEN (St Carbonate 2019 CHEWABLE ed CARBONATE J ohn's 500 MG CARBON 12:00: Medical, Chewable ATE:30 00 AM PC) Tablet 8907 EDT CALCIUM CARBONATE:3 34104 Calcium CALCIU 05/03/ TABLET, 360 complet CALCIUM MEDGEN (St Carbonate 2019 CHEWABLE ed CARBONATE J ohn's 500 MG CARBON 12:00: Medical, Chewable ATE:30 00 AM PC) Tablet 8907 EDT CALCIUM CARBONATE:3 64038 Calcium CALCIU 05/03/ TABLET, 360 complet CALCIUM MEDGEN (St Carbonate 2019 CHEWABLE ed CARBONATE J ohn's 500 MG CARBON 12:00: Medical, Chewable ATE:30 00 AM PC) Tablet 8907 EDT CALCIUM CARBONATE:3 25525 Famotidine FAMOTI 04/26/ TABLET 90 complet FAMOT IDINE MEDGEN (St 40 MG Oral DINE:2 2019 ed [place] Tablet 58272 12:00: Medical, FAMOTIDINE: 00 AM PC) 358154 EDT Famotidine FAMOTI 04/26/ TABLET 90 complet FAMOT IDINE MEDGEN (St 40 MG Oral DINE:2 2019 ed Vicente Tablet 41489 12:00: Medical, FAMOTIDINE: 00 AM PC) 337571 EDT Sodium SODIUM 04/19/ TABLET 360 complet SODIUM ME DGEN (St Bicarbonate BICARB 2019 ed BICARBONATE [place] 650 MG Oral ZIA: 12:00: Medi nils, Tablet 807725 00 AM PC) SODIUM EDT BICARBONATE :[id number] Labetalol LABETA 04/19/ TABLET 30 complet LABETA LOL MEDGEN (St hydrochlori LOL:89 2019 ed [place] de 100 MG 6758 12:00: Medical, Oral Tablet 00 AM PC) LABETALOL:8 EDT 96404 Allopurinol ALLOPU 04/19/ complet ALLOPU RINOL MEDGEN (St ALLOPURINOL RINOL: 2019 ed Juan C's :519 519 12:00: Medical, 00 AM PC) EDT Furosemide FUROSE 04/19/ complet FUROSEM REHAN MEDGEN (St 40 MG Oral MIDE:3 2019 ed [place] Tablet 54284 12:00: Medical, FUROSEMIDE: 00 AM PC) [id number] EDT Allopurinol ALLOPU 15/ complet ALLOPU RINOL MEDGEN (St ALLOPURINOL RINOL: 2019 ed Juan C's :519 519 12:00: Medical, 00 AM PC) EDT Furosemide FUROSE 15/ complet FUROSEM REHAN MEDGEN (St 40 MG Oral MIDE:3 2019 ed [place] Tablet 32494 12:00: Medical, FUROSEMIDE: 00 AM PC) 858355 EDT Allopurinol ALLOPU 15/ complet ALLOPU RINOL MEDGEN (St ALLOPURINOL RINOL: 2019 ed Juan C's :519 519 12:00: Medical, 00 AM PC) EDT Furosemide FUROSE 15/ complet FUROSEM REHAN MEDGEN (St 40 MG Oral MIDE:3 2019 ed Juan C's Tablet 44050 12:00: Medical, FUROSEMIDE: 00 AM PC) 769905 EDT Sodium SODIUM 04/19/ TABLET 360 complet SODIUM ME DGEN (St Bicarbonate BICARB 2019 ed BICARBONATE Juan C's 650 MG Oral ZIA: 12:00: Medi nils, Tablet [id number] 00 AM PC) SODIUM EDT BICARBONATE :313473 Labetalol LABETA 07/15/ TABLET 30 complet LABETA LOL MEDGEN (St hydrochlori LOL:89 2019 ed Juan C's de 100 MG 6758 12:00: Medical, Oral Tablet 00 AM PC) LABETALOL:8 EDT 15935 Labetalol LABETA 07/15/ TABLET 30 complet LABETA LOL MEDGEN (St hydrochlori LOL:89 2019 ed Jaun C's de 100 MG 6758 12:00: Medical, Oral Tablet 00 AM PC) LABETALOL:8 EDT 19974 Sodium SODIUM 15/ TABLET 360 complet SODIUM ME DGEN (St Bicarbonate BICARB 2019 ed BICARBONATE Juan C's 650 MG Oral ZIA: 12:00: Medi nils, Tablet [id number] 00 AM PC) SODIUM EDT BICARBONATE :336479 Tamsulosin TAMSUL 12/14/ CAPSULE 30 complet TAMS ULOSIN MEDGEN (St hydrochlori OSIN:8 2019 ed Juan C's de 0.4 MG 29436 12:00: Medical , Oral 00 AM PC) Capsule EDT TAMSULOSIN: 795717 Furosemide FUROSE 12/14/ TABLET 30 complet FUROS EMIDE MEDGEN (St 20 MG Oral MIDE:3 2019 ed Juan C's Tablet 80703 12:00: Medical, FUROSEMIDE: 00 AM PC) 820365 EDT Furosemide FUROSE 11/ TABLET 30 complet FUROS EMIDE MEDGEN (St 20 MG Oral MIDE:3 2019 ed Juan C's Tablet 61857 12:00: Medical, FUROSEMIDE: 00 AM PC) 490801 EDT Tamsulosin TAMSUL 11/ CAPSULE 30 complet TAMS ULOSIN MEDGEN (St hydrochlori OSIN:8 2019 ed Juan C's de 0.4 MG 42419 12:00: Medical , Oral 00 AM PC) Capsule EDT TAMSULOSIN: 635112 Furosemide FUROSE 11/ TABLET 30 complet FUROS EMIDE MEDGEN (St 20 MG Oral MIDE:3 2019 ed Juan C's Tablet 34753 12:00: Medical, FUROSEMIDE: 00 AM PC) 525789 EDT Tamsulosin TAMSUL 11/ CAPSULE 30 complet TAMS ULOSIN MEDGEN (St hydrochlori OSIN:2019 ed Juan C's de 0.4 MG 08520 12:00: Medical , Oral 00 AM PC) Capsule EDT TAMSULOSIN: 980254 Tamsulosin TAMSUL 12/14/ CAPSULE 30 complet TAMS ULOSIN MEDGEN (St hydrochlori OSIN:8 2019 ed Juan C's de 0.4 MG 00970 12:00: Medical , Oral 00 AM PC) Capsule EDT TAMSULOSIN: 789946 Furosemide FUROSE 11/ TABLET 30 complet FUROS EMIDE MEDGEN (St 20 MG Oral MIDE:3 2019 ed Juan C's Tablet 96465 12:00: Medical, FUROSEMIDE: 00 AM PC) 834693 EDT Tamsulosin TAMSUL 12/14/ CAPSULE 30 complet TAMS ULOSIN MEDGEN (St hydrochlori OSIN:8 2019 ed Juan C's de 0.4 MG 74551 12:00: Medical , Oral 00 AM PC) Capsule EDT TAMSULOSIN: 636449 Furosemide FUROSE 12/14/ TABLET 30 complet FUROS EMIDE MEDGEN (St 20 MG Oral MIDE:3 2019 ed Juan C's Tablet 46262 12:00: Medical, FUROSEMIDE: 00 AM PC) 307652 EDT Tamsulosin TAMSUL 12/14/ CAPSULE 30 complet TAMS ULOSIN MEDGEN (St hydrochlori OSIN:2019 ed Juan C's de 0.4 MG 84285 12:00: Medical , Oral 00 AM PC) Capsule EDT TAMSULOSIN: 999406 Tamsulosin TAMSUL 12/14/ CAPSULE 30 complet TAMS ULOSIN MEDGEN (St hydrochlori OSIN:8 2019 ed Juan C's de 0.4 MG 76617 12:00: Medical , Oral 00 AM PC) Capsule EDT TAMSULOSIN: 220612 Tamsulosin TAMSUL 12/14/ CAPSULE 30 complet TAMS ULOSIN MEDGEN (St hydrochlori OSIN:8 2019 ed Juan C's de 0.4 MG 87299 12:00: Medical , Oral 00 AM PC) Capsule EDT TAMSULOSIN: 395120 Furosemide FUROSE 12/14/ TABLET 30 complet FUROS EMIDE MEDGEN (St 20 MG Oral MIDE:3 2019 ed Juan C's Tablet 60234 12:00: Medical, FUROSEMIDE: 00 AM PC) 165801 EDT Tamsulosin TAMSUL 12/14/ CAPSULE 30 complet TAMS ULOSIN MEDGEN (St hydrochlori OSIN:2019 ed Juan C's de 0.4 MG 99910 12:00: Medical , Oral 00 AM PC) Capsule EDT TAMSULOSIN: 509642 Tamsulosin TAMSUL 12/14/ CAPSULE 30 complet TAMS ULOSIN MEDGEN (St hydrochlori OSIN:8 2019 ed Juan C's de 0.4 MG 96129 12:00: Medical , Oral 00 AM PC) Capsule EDT TAMSULOSIN: 366583 Tamsulosin TAMSUL 12/14/ CAPSULE 30 complet TAMS ULOSIN MEDGEN (St hydrochlori OSIN:8 2019 ed Juan C's de 0.4 MG 68571 12:00: Medical , Oral 00 AM PC) Capsule EDT TAMSULOSIN: 582048 Furosemide FUROSE 12/14/ TABLET 30 complet FUROS EMIDE MEDGEN (St 20 MG Oral MIDE:3 2019 ed Juan C's Tablet 86064 12:00: Medical, FUROSEMIDE: 00 AM PC) 973481 EDT Tamsulosin TAMSUL 12/14/ CAPSULE 30 complet TAMS ULOSIN MEDGEN (St hydrochlori OSIN:8 2019 ed Juan C's de 0.4 MG 50285 12:00: Medical , Oral 00 AM PC) Capsule EDT TAMSULOSIN: 232453 Hydroxyzine HYDROX 11/17/ complet HYDROX YZINE MEDGEN (St Hydrochlori YZINE: 2019 ed Juan C's de 10 MG 476727 12:00: Medical , Oral Tablet 00 AM PC) HYDROXYZINE EST :538155 Hydralazine HYDRAL 11/17/ TABLET 90 complet HYDR ALAZINE MEDGEN (St Hydrochlori AZINE: 2019 ed Juan C's de 25 MG 144227 12:00: Medical , Oral Tablet 00 AM PC) HYDRALAZINE EST :301753 halobetasol HALOBE 11/17/ complet HALOBE TASOL MEDGEN (St propionate TASOL 2019 ed TOPICAL Juan C' s 0.0005 TOPICA 12:00: Medical, MG/MG L:9779 00 AM PC) Topical 78 EST Ointment HALOBETASOL TOPICAL:977 978 Amlodipine AMLODI 11/17/ complet AMLODIP INE MEDGEN (St 10 MG Oral PINE:3 2019 ed Juan C's Tablet 14904 12:00: Medical, AMLODIPINE: 00 AM PC) 037036 EST atorvastati ATORVA 11/17/ complet ATORVA STATIN MEDGEN (St n 10 MG STATIN 2019 ed Juan C's Oral Tablet :39343 12:00: Medi nils, ATORVASTATI 2 00 AM PC) N:[id number] EST Aspirin 81 ASPIRI 11/17/ complet ASPIRIN [...] STATIN 2019 ed Juan C's Oral Tablet :01524 12:00: Medi nils, ATORVASTATI 2 00 AM PC) N:672051 EST Aspirin 81 ASPIRI 11/17/ complet ASPIRIN MEDGEN (St MG Delayed N:3084 2019 ed Juan C's Release 16 12:00: Medical, Oral Tablet 00 AM PC) ASPIRIN:308 EST 416 Hydralazine HYDRAL 11/17/ TABLET 90 complet HYDR ALAZINE MEDGEN (St Hydrochlori AZINE: 2019 ed Juan C's de 25 MG 740990 12:00: Medical , Oral Tablet 00 AM PC) HYDRALAZINE EST :255068 Tacrolimus TACROL 11/17/ complet TACROLI MUS MEDGEN (St 0.001 MG/MG IMUS 2019 ed TOPICAL Juan C' s Topical TOPICA 12:00: Medical, Ointment L:3142 00 AM PC) TACROLIMUS 66 EST TOPICAL:314 266 atorvastati ATORVA 11/17/ complet ATORVA STATIN MEDGEN (St n 10 MG STATIN 2019 ed Juan C's Oral Tablet :38180 12:00: Medi nils, ATORVASTATI 2 00 AM PC) N:658075 EST halobetasol HALOBE 11/17/ complet HALOBE TASOL [...] Oral Tablet 00 AM PC) LABETALOL:8 EST 78793 Amlodipine AMLODI 11/17/ complet AMLODIP INE MEDGEN (St 10 MG Oral PINE:3 2019 ed Juan C's Tablet 13747 12:00: Medical, AMLODIPINE: 00 AM PC) 771266 EST Labetalol LABETA 11/17/ TABLET 120 complet LABETA LOL MEDGEN (St hydrochlori LOL:89 2019 ed Juan C's de 200 MG 6762 12:00: Medical, Oral Tablet 00 AM PC) LABETALOL:8 EST 25416 Hydroxyzine HYDROX 11/17/ complet HYDROX YZINE MEDGEN (St Hydrochlori YZINE: 2019 ed Juan C's de 10 MG 590432 12:00: Medical , Oral Tablet 00 AM PC) HYDROXYZINE EST :968787 Hydralazine HYDRAL 11/17/ TABLET 90 complet HYDR ALAZINE MEDGEN (St Hydrochlori AZINE: 2019 ed Juan C's de 25 MG 374620 12:00: Medical , Oral Tablet 00 AM PC) HYDRALAZINE EST :105383 halobetasol HALOBE 11/17/ complet HALOBE TASOL MEDGEN (St propionate TASOL 2019 ed TOPICAL Juan C' s 0.0005 TOPICA 12:00: Medical, MG/MG L:9779 00 AM PC) Topical 78 EST Ointment HALOBETASOL TOPICAL:977 978 atorvastati ATORVA 11/17/ complet ATORVA STATIN MEDGEN (St n 10 MG STATIN 2019 ed Juan C's Oral Tablet :14110 12:00: Medi nils, ATORVASTATI 2 00 AM PC) N:105775 EST Tacrolimus TACROL 11/17/ complet TACROLI MUS MEDGEN (St 0.001 MG/MG IMUS 2019 ed TOPICAL Juan C' s Topical TOPICA 12:00: Medical, Ointment L:3142 00 AM PC) TACROLIMUS 66 EST TOPICAL:314 266 Amlodipine AMLODI 11/17/ complet AMLODIP INE MEDGEN (St 10 MG Oral PINE:3 2019 ed Juan C's Tablet 40318 12:00: Medical, AMLODIPINE: 00 AM PC) 326414 EST Hydroxyzine HYDROX 11/17/ complet HYDROX YZINE MEDGEN (St Hydrochlori YZINE: 2019 ed Juan C's de 10 MG 937803 12:00: Medical , Oral Tablet 00 AM PC) HYDROXYZINE EST :725503 Labetalol LABETA 11/17/ TABLET 120 complet LABETA LOL MEDGEN (St hydrochlori LOL:89 2019 ed Juan C's de 200 MG 6762 12:00: Medical, Oral Tablet 00 AM PC) LABETALOL:8 EST 31896 Hydralazine HYDRAL 11/17/ TABLET 90 complet HYDR ALAZINE MEDGEN (St Hydrochlori AZINE: 2019 ed Juan C's de 25 MG 481641 12:00: Medical , Oral Tablet 00 AM PC) HYDRALAZINE EST :236342 Amlodipine AMLODI 11/17/ complet AMLODIP INE MEDGEN (St 10 MG Oral PINE:3 2019 ed Juan C's Tablet 97174 12:00: Medical, AMLODIPINE: 00 AM PC) 166675 EST halobetasol HALOBE 11/17/ complet HALOBE TASOL [...] STATIN 2019 ed Juan C's Oral Tablet :18842 12:00: Medi nils, ATORVASTATI 2 00 AM PC) N:675549 EST Aspirin 81 ASPIRI 11/17/ complet ASPIRIN [...] 2019 ed Juan C's de 10 MG 568864 12:00: Medical , Oral Tablet 00 AM PC) HYDROXYZINE EST :620852 Labetalol LABETA 11/17/ TABLET 120 complet LABETA LOL MEDGEN (St hydrochlori LOL:89 2019 ed Juan C's de 200 MG 6762 12:00: Medical, Oral Tablet 00 AM PC) LABETALOL:8 EST 27176 halobetasol HALOBE 11/17/ complet HALOBE TASOL MEDGEN (St propionate TASOL 2019 ed TOPICAL Juan C' s 0.0005 TOPICA 12:00: Medical, MG/MG L:9779 00 AM PC) Topical 78 EST Ointment HALOBETASOL TOPICAL:977 978 Hydralazine HYDRAL 11/17/ TABLET 90 complet HYDR ALAZINE MEDGEN (St Hydrochlori AZINE: 2019 ed Juan C's de 25 MG 610006 12:00: Medical , Oral Tablet 00 AM PC) HYDRALAZINE EST :671096 Aspirin 81 ASPIRI 11/17/ complet ASPIRIN MEDGEN (St MG Delayed N:3084 2019 ed Juan C's Release 16 12:00: Medical, Oral Tablet 00 AM PC) ASPIRIN:308 EST 416 Labetalol LABETA 11/17/ TABLET 120 complet LABETA LOL MEDGEN (St hydrochlori LOL:89 2019 ed Juan C's de 200 MG 6762 12:00: Medical, Oral Tablet 00 AM PC) LABETALOL:8 EST 89895 Tacrolimus TACROL 11/17/ complet TACROLI MUS MEDGEN [...] 2019 ed Juan C's de 10 MG 110321 12:00: Medical , Oral Tablet 00 AM PC) HYDROXYZINE EST :803031 Labetalol LABETA 11/17/ TABLET 120 complet LABETA LOL MEDGEN (St hydrochlori LOL:89 2019 ed Juan C's de 200 MG 6762 12:00: Medical, Oral Tablet 00 AM PC) LABETALOL:8 EST 27855 Tacrolimus TACROL 11/17/ complet TACROLI MUS MEDGEN [...] STATIN 2019 ed Juan C's Oral Tablet :89781 12:00: Medi nils, ATORVASTATI 2 00 AM PC) N:[id number] EST Aspirin 81 ASPIRI complet ASPIRIN MEDGEN (St MG Delayed N:3084 2019 ed Juan C's Release 16 12:00: Medical, Oral Tablet 00 AM PC) ASPIRIN:308 EST 416 Amlodipine AMLODI 11/17/ complet AMLODIP INE MEDGEN (St 10 MG Oral PINE:3 2019 ed Juan C's Tablet 24398 12:00: Medical, AMLODIPINE: 00 AM PC) [id number] EST atorvastati ATORVA complet ATORVA STATIN MEDGEN (St n 10 MG STATIN 2020 ed Juan C's Oral Tablet :73985 12:00: Medi nils, ATORVASTATI 2 00 AM PC) N:[id number] EST Aspirin 81 ASPIRI complet ASPIRIN MEDGEN (St MG Delayed N:3084 2019 ed Juan C's Release 16 12:00: Medical, Oral Tablet 00 AM PC) ASPIRIN:308 EST 416 atorvastati ATORVA complet ATORVA STATIN MEDGEN (St n 10 MG STATIN 2019 ed Juan C's Oral Tablet :56246 12:00: Medi nils, ATORVASTATI 2 00 AM PC) N:[id number] EST Tacrolimus TACROL complet TACROLI MUS MEDGEN [...] STATIN 2019 ed Juan C's Oral Tablet :37027 12:00: Medi nils, ATORVASTATI 2 00 AM PC) N:281945 EST Aspirin 81 ASPIRI 11/17/ complet ASPIRIN MEDGEN (St MG Delayed N:3084 2019 ed Juan C's Release 16 12:00: Medical, Oral Tablet 00 AM PC) ASPIRIN:308 EST 416 Labetalol LABETA 11/17/ TABLET 120 complet LABETA LOL MEDGEN (St hydrochlori LOL:89 2019 ed Juan C's de 200 MG 6762 12:00: Medical, Oral Tablet 00 AM PC) LABETALOL:8 EST 49703 Hydralazine HYDRAL 11/17/ TABLET 90 complet HYDR ALAZINE MEDGEN (St Hydrochlori AZINE: 2019 ed Juan C's de 25 MG [id number] 12:00: Medical , Oral Tablet 00 AM PC) HYDRALAZINE EST :[id number] halobetasol HALOBE 11/17/ complet HALOBE TASOL MEDGEN (St propionate TASOL 2019 ed TOPICAL Juan C' s 0.0005 TOPICA 12:00: Medical, MG/MG L:9779 00 AM PC) Topical 78 EST Ointment HALOBETASOL TOPICAL:977 978 Hydroxyzine HYDROX 11/17/ complet HYDROX YZINE MEDGEN (St Hydrochlori YZINE: 2019 ed Juan C's de 10 MG [id number] 12:00: Medical , Oral Tablet 00 AM PC) HYDROXYZINE EST :235333 Hydroxyzine HYDROX complet HYDROX YZINE MEDGEN (St Hydrochlori YZINE: 2019 ed Juan C's de 10 MG [id number] 12:00: Medical , Oral Tablet 00 AM PC) HYDROXYZINE EST :[id number] Aspirin 81 ASPIRI 11/17/ complet ASPIRIN MEDGEN (St MG Delayed N:3084 2019 ed Juan C's Release 16 12:00: Medical, Oral Tablet 00 AM PC) ASPIRIN:308 EST 416 atorvastati ATORVA complet ATORVA STATIN MEDGEN (St n 10 MG STATIN 2019 ed Juan C's Oral Tablet :96082 12:00: Medi nils, ATORVASTATI 2 00 AM PC) N:[id number] EST halobetasol HALOBE 11/17/ complet HALOBE TASOL [...] 2019 ed Juan C's de 25 MG [id number] 12:00: Medical , Oral Tablet 00 AM PC) HYDRALAZINE EST :[id number] Aspirin 81 ASPIRI 11/17/ complet ASPIRIN MEDGEN (St MG Delayed N:3084 2019 ed Juan C's Release 16 12:00: Medical, Oral Tablet 00 AM PC) ASPIRIN:308 EST 416 atorvastati ATORVA 11/17/ complet ATORVA STATIN MEDGEN (St n 10 MG STATIN 2019 ed Juan C's Oral Tablet :[id number] 12:00: Medi nils, ATORVASTATI 2 00 AM PC) N:[id number] EST Tacrolimus TACROL 11/17/ complet TACROLI MUS [...] Oral PINE:3 2019 ed Juan C's Tablet 61733 12:00: Medical, AMLODIPINE: 00 AM PC) [id number] EST atorvastati ATORVA 11/17/ complet ATORVA STATIN MEDGEN (St n 10 MG STATIN 2019 ed Juan C's Oral Tablet :03813 12:00: Medi nils, ATORVASTATI 2 00 AM PC) N:[id number] EST Amlodipine AMLODI 11/17/ complet AMLODIP INE MEDGEN (St 10 MG Oral PINE:3 2019 ed Juan C's Tablet 73728 12:00: Medical, AMLODIPINE: 00 AM PC) [id number] EST Tacrolimus TACROL 11/17/ complet TACROLI MUS [...] complet SA NTYL MEDGEN (St 0.25 UNT/MG :99230 2018 ed Juan C's Topical 17 12:00: Medical, Ointment 00 AM PC) [Santyl] EST SANTYL:1149 617 COLLAGENASE SANTYL 11/22/ OINTMENT 1 complet SA NTYL MEDGEN (St 0.25 UNT/MG :72174 2018 ed Juan C's Topical 17 12:00: Medical, Ointment 00 AM PC) [Santyl] EST SANTYL:1149 617 Labetalol LABETA 22/ TABLET 60 complet LABETA LOL MEDGEN (St hydrochlori LOL:89 2018 ed Juan C's de 100 MG 6758 12:00: Medical, Oral Tablet 00 AM PC) LABETALOL:8 EST 66829 COLLAGENASE SANTYL 08/27/ OINTMENT 1 complet SA NTYL MEDGEN (St 0.25 UNT/MG :43312 2018 ed Juan C's Topical 17 12:00: Medical, Ointment 00 AM PC) [Santyl] EST SANTYL:1149 617 Labetalol LABETA 22/ TABLET 60 complet LABETA LOL MEDGEN (St hydrochlori LOL:89 2018 ed Juan C's de 100 MG 6758 12:00: Medical, Oral Tablet 00 AM PC) LABETALOL:8 EST 89009 COLLAGENASE SANTYL 08/27/ OINTMENT 1 complet SA NTYL MEDGEN (St 0.25 UNT/MG :26833 2018 ed Juan C's Topical 17 12:00: Medical, Ointment 00 AM PC) [Santyl] EST SANTYL:1149 617 Labetalol LABETA 22/ TABLET 60 complet LABETA LOL MEDGEN (St hydrochlori LOL:89 2018 ed Juan C's de 100 MG 6758 12:00: Medical, Oral Tablet 00 AM PC) LABETALOL:8 EST 25116 Labetalol LABETA 22/ TABLET 60 complet LABETA LOL MEDGEN (St hydrochlori LOL:89 2018 ed Juan C's de 100 MG 6758 12:00: Medical, Oral Tablet 00 AM PC) LABETALOL:8 EST 23493 COLLAGENASE SANTYL 08/27/ OINTMENT 1 complet SA NTYL MEDGEN (St 0.25 UNT/MG :85448 2018 ed Juan C's Topical 17 12:00: Medical, Ointment 00 AM PC) [Santyl] EST SANTYL:1149 617 Labetalol LABETA 11/22/ TABLET 60 complet LABETA LOL MEDGEN (St hydrochlori LOL:89 2018 ed Juan C's de 100 MG 6758 12:00: Medical, Oral Tablet 00 AM PC) LABETALOL:8 EST 10579 COLLAGENASE SANTYL 22/ OINTMENT 1 complet SA NTYL MEDGEN (St 0.25 UNT/MG :88400 2018 ed Juan C's Topical 17 12:00: Medical, Ointment 00 AM PC) [Santyl] EST SANTYL:1149 617 COLLAGENASE SANTYL 22/ OINTMENT 1 complet SA NTYL MEDGEN (St 0.25 UNT/MG :67704 2018 ed Juan C's Topical 17 12:00: Medical, Ointment 00 AM PC) [Santyl] EST SANTYL:1149 617 Labetalol LABETA 11/22/ TABLET 60 complet LABETA LOL MEDGEN (St hydrochlori LOL:89 2018 ed Juan C's de 100 MG 6758 12:00: Medical, Oral Tablet 00 AM PC) LABETALOL:8 EST 52146 COLLAGENASE SANTYL 08/27/ OINTMENT 1 complet SA NTYL MEDGEN (St 0.25 UNT/MG :28339 2018 ed Juan C's Topical 17 12:00: Medical, Ointment 00 AM PC) [Santyl] EST SANTYL:1149 617 COLLAGENASE SANTYL 08/27/ OINTMENT 1 complet SA NTYL MEDGEN (St 0.25 UNT/MG :46415 2018 ed Juan C's Topical 17 12:00: Medical, Ointment 00 AM PC) [Santyl] EST SANTYL:1149 617 Labetalol LABETA 22/ TABLET 60 complet LABETA LOL MEDGEN (St hydrochlori LOL:89 2018 ed Juan C's de 100 MG 6758 12:00: Medical, Oral Tablet 00 AM PC) LABETALOL:8 EST 43279 COLLAGENASE SANTYL 22/ OINTMENT 1 complet SA NTYL MEDGEN (St 0.25 UNT/MG :29534 2018 ed Juan C's Topical 17 12:00: Medical, Ointment 00 AM PC) [Santyl] EST SANTYL:1149 617 COLLAGENASE SANTYL 22/ OINTMENT 1 complet SA NTYL MEDGEN (St 0.25 UNT/MG :62826 2018 ed Juan C's Topical 17 12:00: Medical, Ointment 00 AM PC) [Santyl] EST SANTYL:1149 617 COLLAGENASE SANTYL 22/ OINTMENT 1 complet SA NTYL MEDGEN (St 0.25 UNT/MG :93769 2018 ed Juan C's Topical 17 12:00: Medical, Ointment 00 AM PC) [Santyl] EST SANTYL:1149 617 Insurance Providers Payer name Policy type Policy ID Covered Covered libertarian's Policy P tomeka / Coverage libertarian ID relationship to Cantu Inf ormation type cantu HIP MEDICAID [id number] SP [id number] MEDICAID [id number] SP [id number] [facility] [id number] MEDICAID OF [id number] [place] [id number] SP [id number] [facility] [id number] PT [id number] ESSENTIAL 1 PLAN 1 MEDICAID [id number] SP [id number] SELF PAY SP INSURANCE Problems, Conditions, and Diagnoses Code Display Name Description Problem Type Effective Data Dates Source(s) L29.9 Pruritus, PRURITUS, Problem 05/31/2020 MEDGEN ([address] unspecified UNSPECIFIED 12:00:00 AM [facility], ) L29.9 Pruritus, PRURITUS, Problem 05/31/2020 MEDGEN (St unspecified UNSPECIFIED 12:00:00 AM [facility], ) L29.9 Pruritus, PRURITUS, Problem 05/31/2020 MEDGEN ([address] unspecified UNSPECIFIED 12:00:00 AM [facility], ) F32.9 Major depressive MAJOR DEPRESSIVE Problem 05/05/2020 ME DGEN (St disorder, single DISORDER, SINGLE 12:00:00 AM J ohn's episode, unspecified EPISODE, EDT [facility] nils, PC) UNSPECIFIED F32.9 Major depressive MAJOR [...] F32.9 Major depressive MAJOR DEPRESSIVE Problem 05/05/2020 PR DGEN (St disorder, single DISORDER, SINGLE 12:00:00 [...] Problem 04/19/2020 MEDGEN ( St 12:00:00 AM [facility]'s [facility], ) I50.32 Chronic diastolic CHRONIC DIASTOLIC Problem 03/24/2020 MEDGEN (St (congestive) heart (CONGESTIVE) HEART 12:00:00 AM Juan C's failure FAILURE T [facility], ) I50.32 Chronic diastolic CHRONIC DIASTOLIC Problem 03/24/2020 MEDGEN (St (congestive) heart (CONGESTIVE) HEART 12:00:00 AM Juan C's failure FAILURE T [facility], ) I50.32 Chronic diastolic CHRONIC DIASTOLIC Problem 03/24/2020 MEDGEN (St (congestive) heart (CONGESTIVE) HEART 12:00:00 AM Juan C's failure FAILURE T [facility], ) I50.32 Chronic diastolic CHRONIC DIASTOLIC Problem 03/24/2020 MEDGEN (St (congestive) heart (CONGESTIVE) HEART 12:00:00 AM [facility], ) I50.32 Chronic diastolic CHRONIC DIASTOLIC Problem 03/24/2020 MEDGEN (St (congestive) heart (CONGESTIVE) HEART 12:00:00 AM Juan C's failure [facility], ) I50.32 Chronic diastolic CHRONIC DIASTOLIC Problem 03/24/2020 MEDGEN (St (congestive) heart (CONGESTIVE) HEART 12:00:00 AM Juan C's failure FAILURE T [facility], ) I50.32 Chronic diastolic CHRONIC DIASTOLIC Problem 03/24/2020 MEDGEN (St (congestive) heart (CONGESTIVE) HEART 12:00:00 AM [facility], ) I50.32 Chronic diastolic CHRONIC DIASTOLIC Problem 03/24/2020 MEDGEN (St (congestive) heart (CONGESTIVE) HEART 12:00:00 AM Juan C's failure FAILURE T [facility], ) I50.32 Chronic diastolic CHRONIC DIASTOLIC Problem 03/24/2020 MEDGEN (St (congestive) heart (CONGESTIVE) HEART 12:00:00 AM Juan C's failure FAILURE T [facility], ) I50.32 Chronic diastolic CHRONIC DIASTOLIC Problem 03/24/2020 MEDGEN (St (congestive) heart (CONGESTIVE) HEART 12:00:00 AM Juan C's failure FAILURE T [facility], ) I50.32 Chronic diastolic CHRONIC DIASTOLIC Problem 03/24/2020 MEDGEN (St (congestive) heart (CONGESTIVE) HEART 12:00:00 AM Juan C's failure FAILURE [facility], ) R53.81 Other malaise OTHER MALAISE Problem 03/22/2020 MEDGEN ( St 12:00:00 AM [facility]'s T [facility], ) R53.81 Other malaise OTHER MALAISE Problem 03/22/2020 MEDGEN ( St 12:00:00 AM [facility]'s [facility]) R53.81 Other malaise OTHER MALAISE Problem 03/22/2020 MEDGEN ( St 12:00:00 AM [facility], ) R53.81 Other malaise OTHER MALAISE Problem 03/22/2020 MEDGEN ( St 12:00:00 AM [facility], ) R53.81 Other malaise OTHER MALAISE Problem 03/22/2020 MEDGEN ( St 12:00:00 AM [facility], ) R53.81 Other malaise OTHER MALAISE Problem 03/22/2020 MEDGEN ( St 12:00:00 AM [facility], ) R53.81 Other malaise OTHER MALAISE Problem 03/22/2020 MEDGEN ( St 12:00:00 AM [facility]) R53.81 Other malaise OTHER MALAISE Problem 03/22/2020 MEDGEN ( St 12:00:00 AM [facility], ) R53.81 Other malaise OTHER MALAISE Problem 03/22/2020 MEDGEN ( St 12:00:00 AM [facility], ) R53.81 Other malaise OTHER MALAISE Problem 03/22/2020 MEDGEN ( St 12:00:00 AM [facility], ) R53.81 Other malaise OTHER MALAISE Problem 03/22/2020 MEDGEN ( St 12:00:00 AM [facility]) R53.81 Other malaise OTHER MALAISE Problem 03/22/2020 MEDGEN ( St 12:00:00 AM [facility]'s [facility], ) 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 Problem 12/15/2019 MEDGEN (St 12:00:00 AM [facility]) 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 Problem 12/15/2019 MEDGEN (St 12:00:00 AM [facility]) 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 Problem 12/15/2019 MEDGEN (St 12:00:00 AM [facility]) 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 Problem 12/15/2019 MEDGEN (St 12:00:00 AM [facility]) 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 Problem 12/15/2019 MEDGEN (St 12:00:00 AM [facility]) 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 Problem 12/15/2019 MEDGEN (St 12:00:00 AM [facility]) 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 Problem 12/15/2019 MEDGEN (St 12:00:00 AM [facility]) 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 Problem 12/15/2019 MEDGEN (St 12:00:00 AM [facility]) 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 Problem 12/15/2019 MEDGEN (St 12:00:00 AM [facility]) 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 Problem 12/15/2019 MEDGEN (St 12:00:00 AM [facility]) 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 Problem 12/15/2019 MEDGEN (St 12:00:00 AM [facility]) 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 Problem 12/15/2019 MEDGEN (St 12:00:00 AM [facility]) 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 09/22/2019 ME DGEN (St ulcer of unspecified CHRONIC ULCER OF 12:00:00 AM Juan C's heel and midfoot UNSPECIFIED HEEL EST De dical, ) with unspecified AND MIDFOOT WITH severity UNSPECIFIED SEVERITY E88.09 Other disorders of OTHER DISORDERS OF Problem 9 MEDGEN (St plasma-protein PLASMA-PROTEIN 12:00:00 AM Juan C' s metabolism, not METABOLISM, NOT EST [facility], ) elsewhere classified ELSEWHERE CLASSIFIED D72.829 Elevated white blood ELEVATED WHITE Problem 09/22/2019 MEDGEN (St cell count, BLOOD CELL COUNT, 12:00:00 AM Juan C' s unspecified UNSPECIFIED EST Medical, ) D64.9 Anemia, unspecified ANEMIA, Problem 09/22/2019 MEDGE N (St UNSPECIFIED 12:00:00 AM [facility]'s [facility], ) R21 Rash and other RASH AND [...] C's heel and midfoot UNSPECIFIED HEEL EST De dicnh, ) with unspecified AND MIDFOOT WITH severity [...] UNSPECIFIED 12:00:00 AM Juan C's EST Medical, ) R21 Rash and other RASH [...] C's heel and midfoot UNSPECIFIED HEEL EST De dical, ) with unspecified AND MIDFOOT WITH [...] C's heel and midfoot UNSPECIFIED HEEL EST De dical, ) with unspecified AND MIDFOOT WITH severity UNSPECIFIED SEVERITY E88.09 Other disorders of OTHER DISORDERS OF Problem 9 MEDGEN (St plasma-protein PLASMA-PROTEIN 12:00:00 AM Juan C' s metabolism, not METABOLISM, NOT EST [facility], ) elsewhere classified ELSEWHERE CLASSIFIED D72.829 Elevated [...] C's heel and midfoot UNSPECIFIED HEEL EST De dical, ) with unspecified AND MIDFOOT WITH [...] C's heel and midfoot UNSPECIFIED HEEL EST [facility], ) with unspecified AND MIDFOOT WITH severity [...] C's heel and midfoot UNSPECIFIED HEEL EST De dical, PC) with unspecified AND MIDFOOT WITH [...] C's heel and midfoot UNSPECIFIED HEEL EST De dical, PC) with unspecified AND MIDFOOT WITH [...] C's heel and midfoot UNSPECIFIED HEEL EST De dical, ) with unspecified AND MIDFOOT WITH [...] C's heel and midfoot UNSPECIFIED HEEL EST De dicnh, ) with unspecified AND MIDFOOT WITH severity [...] UNSPECIFIED 12:00:00 AM Juan C's EST Medical, ) R21 Rash and other RASH [...] C's heel and midfoot UNSPECIFIED HEEL EST De dical, ) with unspecified AND MIDFOOT WITH [...] UNSPECIFIED 12:00:00 AM Juan C's EST Medical, ) R21 Rash and other RASH [...] C's heel and midfoot UNSPECIFIED HEEL EST De dical, PC) with unspecified AND MIDFOOT WITH [...] 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 I51.7 Cardiomegaly I51.7 Diagnosis 05/02/2020 [place] 10:37:00 AM Hospital EDT C90.00 Multiple myeloma not C90.00 Diagnosis 05/02/2020 [place] having achieved 10:37:00 AM Hospital remission EDT N20.0 Calculus of kidney N20.0 Diagnosis 05/02/2020 [place] 10:37:00 AM Hospital EDT 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.02 Diagnosis 05/02/2020 [place] renal cysts 10:37:00 AM Hospital EDT R59.0 Localized enlarged R59.0 Diagnosis 05/02/2020 [place] lymph nodes 10:37:00 AM Hospital EDT Surgeries/Procedures Procedure Description Date Indications Data Source(s) Documentation of current 2020 MED GEN (Buck's medications (procedure) 12:00:00 AM EDT stefan, ) OFFICE OUTPATIENT VISIT 2020 MEDG EN (Buck's 15 MINUTES 12:00:00 AM EDT Medical, ) Documentation of current 06/14/2020 MED GEN (Buck's medications (procedure) 12:00:00 AM EDT stefan, ) Documentation of current 06/14/2020 MED GEN (Buck's medications (procedure) 12:00:00 AM EDT [facility]an, PC) Documentation of current 06/14/2020 MED GEN (Buck's medications (procedure) 12:00:00 AM EDT stefan, ) OFFICE OUTPATIENT VISIT 06/14/2020 MEDG EN (Buck's 15 MINUTES 12:00:00 AM EDT Medical, ) Documentation of current 06/14/2020 MED GEN (Buck's medications (procedure) 12:00:00 AM EDT [facility], PC) Documentation of current 06/14/2020 MED GEN (Buck's medications (procedure) 12:00:00 AM EDT [facility], PC) Documentation of current 06/14/2020 MED GEN (Buck's medications (procedure) 12:00:00 AM EDT stefan, ) OFFICE OUTPATIENT VISIT 06/14/2020 MEDG EN (Buck's 15 MINUTES 12:00:00 AM EDT Medical, ) Documentation of current 05/31/2020 MED GEN (Buck's medications (procedure) 12:00:00 AM EDT [facility], PC) Documentation of current 05/31/2020 MED GEN (Buck's medications (procedure) 12:00:00 AM EDT [facility], PC) Documentation of current 05/31/2020 MED GEN (Buck's medications (procedure) 12:00:00 AM EDT [facility]an, PC) OFFICE OUTPATIENT VISIT 05/31/2020 MEDG EN (Buck's 15 MINUTES 12:00:00 AM EDT [facility], ) Documentation of current 05/31/2020 MED GEN (Buck's medications (procedure) 12:00:00 AM EDT [facility], ) OFFICE OUTPATIENT VISIT 05/31/2020 MEDG EN (Buck's 15 MINUTES 12:00:00 AM EDT Medical, ) OFFICE OUTPATIENT VISIT 05/31/2020 MEDG EN (Buck's 15 MINUTES 12:00:00 AM EDT [facility], ) Documentation of current 05/31/2020 MED GEN (Buck's medications (procedure) 12:00:00 AM EDT [facility], ) Documentation of current 05/31/2020 MED GEN (Buck's medications (procedure) 12:00:00 AM EDT [facility]) Documentation of current 05/31/2020 MED GEN (Buck's medications (procedure) 12:00:00 AM EDT [facility]) OFFICE OUTPATIENT VISIT 05/31/2020 MEDG EN (Buck's [...] EN (Buck's 15 MINUTES 12:00:00 AM EDT [facility], ) COLLECTION VENOUS BLOOD 05/05/2020 MEDG EN [...] MEDG EN (Buck's VENIPUNCTURE 12:00:00 AM EDT [facility], PC) OFFICE OUTPATIENT VISIT 05/05/2020 MEDG EN (Buck's 15 MINUTES 12:00:00 AM EDT [facility], ) COLLECTION VENOUS BLOOD 05/05/2020 MEDG EN ([facility] Documentation of current 05/03/2020 MED GEN [...] AM EDT stefan, [place]) OFFICE OUTPATIENT VISIT 05/03/2020 MEDG EN (Buck's [...] AM EDT stefan, [place]) OFFICE OUTPATIENT VISIT 05/03/2020 MEDG EN (Buck's [...] GEN (Buck's medications (procedure) 12:00:00 AM EDT [facility], ) Documentation of current 05/03/2020 MED GEN (Buck's medications (procedure) 12:00:00 AM EDT [facility], ) Documentation of current 05/03/2020 MED GEN (Buck's medications (procedure) 12:00:00 AM T [facility], ) Documentation of current 05/03/2020 MED GEN (Buck's medications (procedure) 12:00:00 AM EDT [facility], ) Documentation of current 05/03/2020 MED GEN (Buck's medications (procedure) 12:00:00 AM EDT [facility], ) Documentation of current 05/03/2020 MED GEN (Buck's medications (procedure) 12:00:00 AM EDT [facility], ) Documentation of current 04/26/2020 MED GEN (Buck's medications (procedure) 12:00:00 AM EDT [facility], ) OFFICE OUTPATIENT VISIT 04/26/2020 MEDG EN (Buck's 15 MINUTES 12:00:00 AM [facility], ) COLLECTION VENOUS BLOOD 04/26/2020 MEDG EN (Buck's VENIPUNCTURE 12:00:00 AM [facility], ) Documentation of current 04/26/2020 MED GEN (Buck's medications (procedure) 12:00:00 AM EDT [facility], ) OFFICE OUTPATIENT VISIT 04/26/2020 MEDG EN (Buck's 15 MINUTES 12:00:00 AM [facility], ) COLLECTION VENOUS BLOOD 04/26/2020 MEDG EN (Buck's VENIPUNCTURE 12:00:00 AM [facility], ) Documentation of current 04/26/2020 MED GEN (Buck's medications (procedure) 12:00:00 AM EDT [facility], ) OFFICE OUTPATIENT VISIT 04/26/2020 MEDG EN (Buck's 15 MINUTES 12:00:00 AM [facility], ) COLLECTION VENOUS BLOOD 04/26/2020 MEDG EN (Buck's VENIPUNCTURE 12:00:00 AM [facility], ) Documentation of current 04/26/2020 MED GEN (Buck's medications (procedure) 12:00:00 AM EDT [facility]) OFFICE OUTPATIENT VISIT 04/26/2020 MEDG EN (Buck's 15 [facility]UT[facility] COLLECTION VENOUS BLOOD 04/26/2020 MEDG EN (Buck's VENIPUNCTURE 12:00:00 AM [facility], ) Documentation of current 04/26/2020 MED GEN (Buck's medications (procedure) 12:00:00 AM [facility]) OFFICE OUTPATIENT VISIT 04/26/2020 MEDG EN (Buck's 15 MINUT[facility] COLLECTION VENOUS BLOOD 04/26/2020 MEDG EN (Buck's VENIPUNCTURE 12:00:00 AM [facility], ) Documentation of current 04/26/2020 MED GEN (Buck's medications (procedure) 12:00:00 AM [facility], ) OFFICE OUTPATIENT VISIT 04/26/2020 MEDG EN (Ubck's 15 MINUTES 12:00:00 AM [facility], ) COLLECTION VENOUS BLOOD 04/26/2020 MEDG EN (Buck's VENIPUNCTURE 12:00:00 AM [facility], ) Documentation of current 04/26/2020 MED GEN (Buck's medications (procedure) 12:00:00 AM [facility]) OFFICE OUTPATIENT VISIT 04/26/2020 MEDG EN (Buck's 15 MINUTES 12:00:00 AM [facility], ) COLLECTION VENOUS BLOOD 04/26/2020 MEDG EN ([facility]URE [facility] OFFICE OUTPATIENT VISIT 04/19/2020 MEDG EN ([facility] 25 MINUTES [facility] OFFICE OUTPATIENT VISIT 04/19/2020 MEDG EN (Buck's 25 MINUTES [facility] OFFICE OUTPATIENT VISIT 04/19/2020 MEDG EN (Buck's 25 MINUTES [facility] OFFICE OUTPATIENT VISIT 04/19/2020 MEDG EN ([facility] 25 MINUTES [facility] OFFICE OUTPATIENT VISIT 04/19/2020 MEDG EN [...] MEDG EN (Buck's 15 MINUTES 12:00:00 AM [facility] [place], PC) Documentation of current 03/24/2020 [...] EDT M stefan, PC) Documentation of current 03/24/2020 MED [...] MEDG EN (Buck's 15 MINUTES 12:00:00 AM [facility] [place], [facility]) Documentation of current 03/24/2020 [...] MEDG EN (Buck's 15 MINUTES 12:00:00 AM [facility], PC) Documentation of current 03/24/2020 MED GEN [...] MEDG EN (Buck's 15 MINUTES 12:00:00 AM T [place], [facility]) Documentation of current 03/24/2020 MED GEN (Buck's medications (procedure) 12:00:00 AM EDT [facility], PC) Documentation of current 03/24/2020 MED GEN (Buck's medications (procedure) 12:00:00 AM EDT M stefan, PC) Documentation of current 03/24/2020 MED [...] PC) Documentation of current 03/22/2020 MED GEN (Bukc's medications (procedure) 12:00:00 AM [...] 03/22/2020 MEDG EN (Buck's VENIPUNCTURE 12:00:00 AM [facility] Medical, PC) Documentation of current 03/22/2020 MED [...] MEDG EN (Buck's 25 MINUTES 12:00:00 AM [facility], ) COLLECTION VENOUS BLOOD 03/22/2020 MEDG EN (Buck's VENIPUNCTURE 12:00:00 AM [facility], ) Documentation of current 03/22/2020 [...] medications (procedure) 12:00:00 AM EDT M edical, [place]) Documentation of current 03/22/2020 MED GEN (Buck's medications (procedure) 12:00:00 AM EDT [facility], [facility]) Documentation of current 03/22/2020 MED GEN [...] MEDG EN (Buck's 25 MINUTES 12:00:00 AM [facility] Medical, PC) COLLECTION VENOUS BLOOD 03/22/2020 MEDG EN (Buck's VENIPUNCTURE 12:00:00 AM [facility], PC) Documentation of current 03/22/2020 [...] 03/22/2020 MEDG EN (Buck's VENIPUNCTURE 12:00:00 AM [facility], PC) Documentation of current 03/22/2020 [...] EN (Buck's 25 MINUTES 12:00:00 AM EDT [facility], ) COLLECTION VENOUS BLOOD 03/22/2020 MEDG EN (Buck's VENIPUNCTURE 12:00:00 AM [facility], ) Documentation of current 03/22/2020 MED GEN (Buck's medications (procedure) 12:00:00 AM EDT stefan, ) Documentation of current 03/22/2020 MED GEN (Buck's medications (procedure) 12:00:00 AM EDT [facility], [facility]) Documentation of current 03/22/2020 MED GEN (Buck's medications (procedure) 12:00:00 AM EDT [facility], ) OFFICE OUTPATIENT VISIT 03/22/2020 MEDG EN (Buck's 25 MINUTES 12:00:00 AM [facility], ) COLLECTION VENOUS BLOOD 03/22/2020 MEDG EN (Buck's VENIPUNCTURE 12:00:00 AM [facility], ) Documentation of current 03/22/2020 [...] MEDG EN (Buck's 25 MINUTES 12:00:00 AM [facility], ) COLLECTION VENOUS BLOOD 03/22/2020 MEDG EN (Buck's VENIPUNCTURE 12:00:00 AM [facility], ) Documentation of current 03/22/2020 [...] MEDG EN (Buck's 25 MINUTES 12:00:00 AM [facility], ) COLLECTION VENOUS BLOOD 03/22/2020 MEDG EN (Buck's VENIPUNCTURE 12:00:00 AM [facility], ) Documentation of current 03/22/2020 [...] MEDG EN (Buck's 25 MINUTES 12:00:00 AM [facility] Medical, ) COLLECTION VENOUS BLOOD 03/22/2020 MEDG EN (Buck's VENIPUNCTURE 12:00:00 AM [facility], ) Documentation of current 03/22/2020 [...] EDT Max aviles, SAMPSON) Documentation of current 03/22/2020 MED GEN [...] 03/22/2020 MEDG EN (Buck's VENIPUNCTURE 12:00:00 AM [facility] Medical, PC) Documentation of current 03/22/2020 MED [...] EVALUATION 21-30 MIN 12:00:00 AM EDT [facility] ) Documentation of current 02/16/2020 MED GEN [...] medications (procedure) 12:00:00 AM EDT stefan ) PHYSICIAN TELEPHONE 02/16/2020 MEDGEN ( Buck's [...] Buck's EVALUATION 21-30 MIN 12:00:00 AM EDT Medi nils, PC) Documentation of current 02/16/2020 MED GEN [...] Buck's EVALUATION 21-30 MIN 12:00:00 AM EDT [facility], ) Documentation of current 02/16/2020 MED GEN [...] medications (procedure) 12:00:00 AM EDT stefan ) PHYSICIAN TELEPHONE 02/16/2020 MEDGEN ( Buck's EVALUATION 21-30 MIN 12:00:00 AM EDT [facility], ) OFFICE OUTPATIENT VISIT 12/15/2019 MEDG EN [facility] 12/15/2019 MEDG EN ([facility]PATIENT VISIT 12/15/2019 MEDG EN [...] AM MARILOU Galindo [facility]) Documentation of current 11/17/2019 MED GEN [...] C[place]allos) Documentation of current 11/17/2019 MED GEN (Bcuk's medications (procedure) 12:00:00 AM SAMPSON Cevallos) Documentation [...] Cevallos) Documentation of current 11/17/2019 MED GEN (Ubck's medications (procedure) 12:00:00 AM SAM[place]ON Cevallos) Documentation of current 11/17/2019 MED GEN (Buck's medications (procedure) 12:00:00 AM MARILOU aviles, SAM[place]ON) Documentation of current 11/17/2019 MED GEN (Buck's medications (procedure) 12:00:00 AM MARILOU aviles, ASMPSON) Documentation of current 11/17/2019 MED GEN (Buck's [...] GEN (Buck's medications (procedure) 12:00:00 AM EST Mxa aviles, ) Documentation of current 11/17/2019 MED GEN (Buck's medications (procedure) 12:00:00 AM EST Max aviles, PC) Documentation of current 11/17/2019 MED GEN (Buck's medications (procedure) 12:00:00 AM EST Max aviles, PC) Documentation of current 11/17/2019 MED GEN (Buck's medications (procedure) 12:00:00 AM EST Max aviles, PC) Documentation of current 11/17/2019 MED GEN (Buck's medications (procedure) 12:00:00 AM EST Max aviles, ) OFFICE OUTPATIENT VISIT 11/17/2019 MEDG EN (Buck's 25 MINUTES 12:00:00 AM EST Medical, ) COLLECTION VENOUS BLOOD 11/17/2019 MEDG EN (Buck's VENIPUNCTURE 12:00:00 AM EST Medical, ) OFFICE OUTPATIENT VISIT 11/08/2019 MEDG EN (Buck's [...] (Buck's 15 MINUTES 12:00:00 AM EST Medical, ) OFFICE OUTPATIENT VISIT 11/08/2019 MEDG EN (Buck's [...] 09/22/2019 MEDG EN (Buck's VENIPUNCTURE 12:00:00 AM EST Medical, PC) Documentation of [...] 09/22/2019 MEDG EN (Buck's VENIPUNCTURE 12:00:00 AM EST Medical, PC) Documentation of [...] EST Max aviles, PC) Documentation of current 09/22/2019 MED GEN (Buck's medications (procedure) 12:00:00 AM MARILOU aviles, PC) Documentation of current 09/22/2019 MED GEN (Buck's medications (procedure) 12:00:00 AM MARILOU aviles, PC) Documentation of current 09/22/2019 MED GEN (Buck's medications (procedure) 12:00:00 AM MARILOU aviles, PC) Documentation of current 09/22/2019 MED GEN (Buck's medications (procedure) 12:00:00 AM EST Max aviles, PC) OFFICE OUTPATIENT VISIT 09/22/2019 MEDG EN (Buck's 25 MINUTES 12:00:00 AM EST Medical, PC) COLLECTION VENOUS BLOOD 09/22/2019 MEDG EN (Buck's VENIPUNCTURE 12:00:00 AM EST Medical, PC) Documentation of [...] SAMPSON) Documentation of current 09/22/2019 MED GEN (Bukc's medications (procedure) 12:00:00 AM MARILOU aviles, SAM[place]ON) [...] GEN (Buck's medications (procedure) 12:00:00 AM EST M edical, PC) Documentation of current 09/22/2019 MED GEN [...] PC) Documentation of current 09/01/2019 MED GEN (Bukc's medications (procedure) 12:00:00 AM [...] Cevallos) Documentation of current 09/01/2019 MED GEN (Ubck's [...] medications (procedure) 12:00:00 AM MARILOU aviles, PC) Results ID Date Data Source [id number] 05/01/2020 12:00:00 AM EDT [facility] Name Value Range Interpretation Code Description Data Supporting Source(s) Document(s ) Ferritin, 191 ng/mL Normal (applies to MEDGEN (St Serum non-numeric Juan C's results) Medical, PC) ID Date Data Source [id number] 05/01/2020 12:00:00 AM EDT [facility] ([facility], ) Name Value Range Interpretation Description Data Sup porting Code Source(s) Document(s ) Deprecated 2.4 mg/dL Below low normal MEDGEN (St Phosphorus Juan C's [Mass/time] in Medical, ) 24 hour Urine ID Date Data Source [id number] 05/01/2020 12:00:00 AM EDT MEDGEN ([facility], ) Name Value Range Interpretation Description Data Sup porting Code Source(s) Document(s ) Vitamin D, 29.4 Below low normal MEDGEN (St 25-Hydroxy ng/mL [facility], ) ID Date Data Source [id number] 05/01/2020 12:00:00 AM EDT [facility] ([facility], ) Name Value Range Interpretation Code Description Data Supporting Source(s) Document(s ) Creatinine 77.9 mg/dL Normal (applies to MEDGEN (S t , Urine non-numeric Juan C's results) [facility], ) Protein,To 227.0 Normal (applies to MEDGEN (St ruth,Urine mg/dL non-numeric Juan C's results) [facility], ) Protein/Cr 2914 mg/g Above high normal MEDGEN (St eat Ratio creat [facility], ) ID Date Data Source [id number] 05/01/2020 12:00:00 AM EDT MEDGEN ([facility], ) Name Value Range Interpretation Description Data Sup porting Code Source(s) Document(s ) Iron 270 ug/dL Normal (applies to MEDGEN (St Bind.Cap.(TIBC non-numeric Juan C's ) results) [facility], ) UIBC 231 ug/dL Normal (applies to MEDGEN (St non-numeric Juan C's results) [facility], ) Iron 39 ug/dL Normal (applies to MEDGEN (St [Mass/volume] non-numeric Juan C's in Serum or results) [facility], ) Plasma Iron 14 % Below low normal MEDGEN (St saturation Juan C's [[facility], ) Fraction] in Serum or Plasma ID Date Data Source [id number] 05/01/2020 12:00:00 AM EDT [facility] ([facility], ) Name Value Range Interpretation Description Data Sup porting Code Source(s) Document(s ) Specific gravity 1.015 Normal (applies MEDGEN (St of Pericardial to non-numeric Juna C's fluid by results) Medical, Refractometry ) [...] results) Medical, ) ID Date Data Source [id number] 05/01/2020 12:00:00 AM EDT MEDGEN ([facility] [...] by Light microscopy ID Date Data Source [id number] 05/01/2020 12:00:00 AM EDT MEDGEN ([facility], ) Name Value Range Interpretation Description Data Sup porting Code Source(s) Document(s ) Glucose 90 mg/dL Normal (applies MEDGEN (St [Mass/volume] in to non-numeric Juan C's Urine collected for results) Medical, unspecified ) duration Urea nitrogen 37 mg/dL Above high MEDGEN (St [Mass/volume] in normal Juan C's Serum or Plasma [facility], ) Creatinine 4.28 Above high MEDGEN (St [Interpretation] in mg/dL normal Juan C's Urine [facility], ) eGFR If NonAfricn 13 Below low normal MEDGE N (St Am mL/min/[address], ) eGFR If Africn Am 15 Below low normal MEDGE N (St mL/min/1 [facility], ) Sodium 138 Normal (applies MEDGEN (St [Moles/volume] in mmol/L to non-numeric Juan C's Serum or Plasma results) Medical, ) BUN/Creatinine 9 Below low normal MEDGEN ( St Ratio [facility], ) Potassium 5.1 Normal (applies MEDGEN (St [Mass/volume] in mmol/L to non-numeric Juan C's Blood results) [facility], ) Chloride 108 Above high MEDGEN (St [Moles/volume] in mmol/L normal Juan C's Serum or Plasma [facility], ) Carbon dioxide, 19 Below low normal [...] 4.7 g/dL Above high MEDGEN (St normal [facility], ) A/G Ratio 0.8 Below low normal MEDGEN ([facility], ) Bilirubin.total 0.4 Normal (applies MEDGEN ( St [Mass/volume] in mg/dL to non-numeric Juan C's Serum or Plasma results) [facility], ) Alkaline 86 IU/L Normal (applies [...] Serum or Plasma ID Date Data Source [id number] 05/01/2020 12:00:00 AM EDT MEDGEN ([facility], ) Name Value Range Interpretation Description Data Sup porting Code Source(s) Document(s ) Leukocytes 13.3 Above high normal MEDGEN (St [#/volume] in x10E3/uL Juan C's Blood by [facility], ) Automated count Erythrocytes 2.72 Below lower panic MEDGEN (S t [#/volume] in x10E6/uL limits Juan C's Blood by [facility], ) Automated count Hemoglobin 9.1 g/dL Below low normal MEDGEN (St [Mass/volume] in Juan C's Blood [facility], ) Hematocrit 27.8 % Below low normal MEDGEN (St [Volume Juan C's Fraction] of [facility], ) Blood by Automated count MCV 102 fL Above high normal MEDGEN ([facility], ) MCH 33.5 pg Above high normal MEDGEN ([facility], ) MCHC 32.7 Normal (applies MEDGEN (St g/dL to non-numeric Juan C's results) [facility]) RDW 18.4 % Above high normal MEDGEN ([facility], ) Platelets 230 Normal (applies MEDGEN (St [#/area] in x10E3/uL to non-numeric Juan C's Blood by results) [facility]) Microscopy high power field Neutrophils [#] 49 % Normal (applies MEDGEN ( St in Body fluid by to non-numeric Juan C's Manual count results) [facility]) Lymphs 33 % Normal (applies MEDGEN (St to non-numeric Juan C's results) [facility]) Monocytes 8 % Normal (applies MEDGEN (St [#/volume] in to non-numeric Juan C's Cord blood results) [facility], ) Eos 4 % Normal (applies MEDGEN (St to non-numeric Juan C's results) [facility], ) Basos 0 % Normal (applies MEDGEN (St to non-numeric Juan C's results) [facility], ) Immature cells Note Normal (applies MEDGEN (S t [#/volume] in to non-numeric Juan C's Blood results) [facility], ) Neutrophils 6.5 Normal (applies MEDGEN (St (Absolute) x10E3/uL to non-numeric Juan C's results) [facility], ) Lymphs 4.4 Above high normal MEDGEN (St (Absolute) x10E3/uL [facility], ) Monocytes(Absolu 1.1 Above high normal MEDGE N (St te) x10E3/uL [facility], ) Baso (Absolute) 0.0 Normal (applies MEDGEN ( St x10E3/uL to non-numeric Juan C's results) [facility], ) Eos (Absolute) 0.5 Above high normal MEDGEN (St x10E3/uL Juan C's [facility], ) NRBC 8 % Above high normal MEDGEN (Buck's [facility], ) Hematology Note: Normal (applies MEDGEN (St Comments: to non-numeric Juan C's results) [facility], ) ID Date Data Source [id number] 05/01/2020 12:00:00 AM EDT [facility]GEN ([facility], ) Name Value Range Interpretation Description Data Sup porting Code Source(s) Document(s ) Metamyelocytes [#] 2 % Above high normal MED GEN (St in Body fluid by Juan C's Manual count [facility], ) Myelocytes [#] in 4 % Above high normal MEDG EN (St Body fluid by [facility]'s Manual count [facility], ) ID Date Data Source [id number] 05/01/2020 12:00:00 AM EDT [facility]GEN ([facility], ) Name Value Range Interpretation Code Description Data Supporting Source(s) Document(s ) Ferritin, 191 ng/mL Normal (applies to MEDGEN (St Serum non-numeric Juan C's results) [facility], ) ID Date Data Source [id number] 05/01/2020 12:00:00 AM EDT [facility] ([facility], ) Name Value Range Interpretation Description Data Sup porting Code Source(s) Document(s ) Deprecated 2.4 mg/dL Below low normal MEDGEN (St Phosphorus Juan C's [Mass/time] in [facility]) 24 hour Urine ID Date Data Source [id number] 05/01/2020 12:00:00 AM EDT MEDGEN ([facility]) Name Value Range Interpretation Description Data Sup porting Code Source(s) Document(s ) Vitamin D, 29.4 Below low normal MEDGEN (St 25-Hydroxy ng/mL [facility]) ID Date Data Source [id number] 05/01/2020 12:00:00 AM EDT MEDGEN ([facility], ) Name Value Range Interpretation Code Description Data Supporting Source(s) Document(s ) Creatinine 77.9 mg/dL Normal (applies to MEDGEN (S t , Urine non-numeric Juan C's results) [facility]) Protein,To 227.0 Normal (applies to MEDGEN (St ruth,Urine mg/dL non-numeric Juan C's results) [facility]) Protein/Cr 2914 mg/g Above high normal MEDGEN (St eat Ratio creat [facility]) ID Date Data Source [id number] 05/01/2020 12:00:00 AM EDT MEDGEN ([facility], ) Name Value Range Interpretation Description Data Sup porting Code Source(s) Document(s ) Iron 270 ug/dL Normal (applies to MEDGEN (St Bind.Cap.(TIBC non-numeric Juan C's ) results) [facility]) UIBC 231 ug/dL Normal (applies to MEDGEN (St non-numeric Juan C's results) [facility]) Iron 39 ug/dL Normal (applies to MEDGEN (St [Mass/volume] non-numeric Juan C's in Serum or results) [facility], ) Plasma Iron 14 % Below low normal MEDGEN (St saturation Juan C's [Mass [facility], ) Fraction] in Serum or Plasma ID Date Data Source [id number] 05/01/2020 12:00:00 AM EDT MEDGEN ([facility], ) Name Value Range Interpretation Description [...] results) Medical, ) ID Date Data Source [id number] 05/01/2020 12:00:00 AM EDT MEDGEN ([facility] [...] by Light microscopy ID Date Data Source [id number] 05/01/2020 12:00:00 AM EDT MEDGEN ([facility], ) Name Value Range Interpretation Description [...] [Interpretation] in mg/dL normal Juan C's Urine [facility], ) eGFR If NonAfricn 13 Below low normal MEDGE N (St Am mL/min/[address], ) eGFR If Africn Am 15 Below low normal MEDGE N (St mL/min/1 [facility] 73 [facility], ) BUN/Creatinine 9 Below low normal MEDGEN ( St Ratio [facility], ) Sodium 138 Normal (applies MEDGEN (St [Moles/volume] in mmol/L to non-numeric Juan C's Serum or Plasma results) Medical, ) Potassium 5.1 Normal (applies MEDGEN (St [Mass/volume] in mmol/L to non-numeric Juan C's Blood results) Medical, ) Chloride 108 Above high MEDGEN (St [Moles/volume] in mmol/L normal Juan C's Serum or Plasma [facility], ) Carbon dioxide, 19 Below low normal [...] 4.7 g/dL Above high MEDGEN (St normal [facility], ) A/G Ratio 0.8 Below low normal MEDGEN ([facility]) Bilirubin.total 0.4 Normal (applies MEDGEN ( St [Mass/volume] in mg/dL to non-numeric Juan C's Serum or Plasma results) [facility]) Alkaline 86 IU/L Normal (applies MEDGEN [...] Serum or Plasma ID Date Data Source [id number] 05/01/2020 12:00:00 AM EDT MEDGEN ( Julienne [facility], ) Name Value Range Interpretation Description Data Sup porting Code Source(s) Document(s ) Leukocytes 13.3 Above high normal MEDGEN (St [#/volume] in x10E3/uL Juan C's Blood by [facility]) Automated count Erythrocytes 2.72 Below lower panic MEDGEN (S t [#/volume] in x10E6/uL limits Juan C's Blood by [facility]) Automated count Hemoglobin 9.1 g/dL Below low normal MEDGEN (St [Mass/volume] in Juan C's Blood [facility]) Hematocrit 27.8 % Below low normal MEDGEN (St [Volume Juan C's Fraction] of [facility]) Blood by Automated count MCV 102 fL Above high normal MEDGEN ([facility], ) MCH 33.5 pg Above high normal MEDGEN ([facility]) MCHC 32.7 Normal (applies MEDGEN (St g/dL to non-numeric [facility]'s results) [facility]) RDW 18.4 % Above high normal MEDGEN ([facility]) Platelets 230 Normal (applies MEDGEN (St [#/area] in x10E3/uL to non-numeric Juan C's Blood by results) [facility]) Microscopy high power field Neutrophils [#] 49 % Normal (applies MEDGEN ( St in Body fluid by to non-numeric Juan C's Manual count results) [facility], ) Lymphs 33 % Normal (applies MEDGEN (St to non-numeric Juan C's results) [facility]) Monocytes 8 % Normal (applies MEDGEN (St [#/volume] in to non-numeric Juan C's Cord blood results) [facility]) Eos 4 % Normal (applies MEDGEN (St to non-numeric Juan C's results) [facility]) Basos 0 % Normal (applies MEDGEN (St to non-numeric Juan C's results) [facility]) Immature cells Note Normal (applies MEDGEN (S t [#/volume] in to non-numeric Juan C's Blood results) [facility]) Neutrophils 6.5 Normal (applies MEDGEN (St (Absolute) x10E3/uL to non-numeric Juan C's results) [facility]) Lymphs 4.4 Above high normal MEDGEN (St (Absolute) x10E3/uL Juan C's [facility], ) Monocytes(Absolu 1.1 Above high normal MEDGE N (St te) x10E3/uL [facility]) Eos (Absolute) 0.5 Above high normal MEDGEN (St x10E3/uL Juan C's [facility], ) Baso (Absolute) 0.0 Normal (applies MEDGEN ( St x10E3/uL to non-numeric Juan C's results) [facility]) NRBC 8 % Above high normal MEDGEN (Buck's [facility], ) Hematology Note: Normal (applies MEDGEN (St Comments: to non-numeric Juan C's results) [facility]) ID Date Data Source [id number] 05/01/2020 12:00:00 AM EDT MEDGEN ([facility], ) Name Value Range Interpretation Description Data Sup porting Code Source(s) Document(s ) Metamyelocytes [#] 2 % Above high normal MED GEN (St in Body fluid by Juan C's Manual count [facility], ) Myelocytes [#] in 4 % Above high normal MEDG EN (St Body fluid by Juan C's Manual count [facility], ) ID Date Data Source [id number] 05/01/2020 12:00:00 AM EDT MEDGEN ([facility], ) Name Value Range Interpretation Code Description Data Supporting Source(s) Document(s ) Ferritin, 191 ng/mL Normal (applies to MEDGEN (St Serum non-numeric Juan C's results) [facility], ) ID Date Data Source [id number] 05/01/2020 12:00:00 AM EDT MEDGEN ([facility], ) Name Value Range Interpretation Description Data Sup porting Code Source(s) Document(s ) Deprecated 2.4 mg/dL Below low normal MEDGEN (St Phosphorus Juan C's [Mass/time] in [facility], ) 24 hour Urine ID Date Data Source [id number] 05/01/2020 12:00:00 AM EDT MEDGEN ([facility], ) Name Value Range Interpretation Description Data Sup porting Code Source(s) Document(s ) Vitamin D, 29.4 Below low normal MEDGEN (St 25-Hydroxy ng/mL [facility], ) ID Date Data Source [id number] 05/01/2020 12:00:00 AM EDT MEDGEN ([facility], ) Name Value Range Interpretation Code Description Data Supporting Source(s) Document(s ) Creatinine 77.9 mg/dL Normal (applies to MEDGEN (S t , Urine non-numeric Juan C's results) [facility], ) Protein,To 227.0 Normal (applies to MEDGEN (St ruth,Urine mg/dL non-numeric Juan C's results) [facility], ) Protein/Cr 2914 mg/g Above high normal MEDGEN (St eat Ratio creat [facility], ) ID Date Data Source [id number] 05/01/2020 12:00:00 AM EDT MEDGEN ([facility], ) Name Value Range Interpretation Description Data Sup porting Code Source(s) Document(s ) Iron 270 ug/dL Normal (applies to MEDGEN (St Bind.Cap.(TIBC non-numeric Juan C's ) results) [facility], ) UIBC 231 ug/dL Normal (applies to MEDGEN (St non-numeric Juan C's results) [facility], ) Iron 39 ug/dL Normal (applies to MEDGEN (St [Mass/volume] non-numeric Juan C's in Serum or results) [facility], ) Plasma Iron 14 % Below low normal MEDGEN (St saturation Juan C's [Mass [facility], ) Fraction] in Serum or Plasma ID Date Data Source [id number] 05/01/2020 12:00:00 AM EDT MEDGEN ([facility] [...] results) Medical, PC) ID Date Data Source [id number] 05/01/2020 12:00:00 AM EDT MEDGEN ([facility] [...] by Light microscopy ID Date Data Source [id number] 05/01/2020 12:00:00 AM EDT MEDGEN ([facility], ) Name Value Range Interpretation Description Data Sup porting Code Source(s) Document(s ) Glucose 90 mg/dL Normal (applies MEDGEN (St [Mass/volume] in to non-numeric Juan C's Urine collected for results) Medical, unspecified ) duration Urea nitrogen 37 mg/dL Above high MEDGEN (St [Mass/volume] in normal Juan C's Serum or Plasma [facility], ) Creatinine 4.28 Above high MEDGEN (St [Interpretation] in mg/dL normal Juan C's Urine [facility], ) eGFR If NonAfricn 13 Below low normal MEDGE N (St Am mL/min/1 [facility]'s [address] [place] [address], ) eGFR If Africn Am 15 Below low normal MEDGE N (St mL/min/1 [facility]'s .73 [facility], ) BUN/Creatinine 9 Below low normal MEDGEN ( St Ratio [facility], ) Sodium 138 Normal (applies MEDGEN (St [Moles/volume] in mmol/L to non-numeric Juan C's Serum or Plasma results) Medical, ) Potassium 5.1 Normal (applies MEDGEN (St [Mass/volume] in mmol/L to non-numeric Juan C's Blood results) Medical, ) Chloride 108 Above high MEDGEN (St [Moles/volume] in mmol/L normal Juan C's Serum or Plasma [facility], ) Carbon dioxide, 19 Below low normal [...] non-numeric Juan C's Urine collected for results) [facility], unspecified ) duration Globulin, Total 4.7 g/dL Above high MEDGEN ([facility], ) A/G Ratio 0.8 Below low normal MEDGEN ([facility], ) Bilirubin.total 0.4 Normal (applies MEDGEN ( St [Mass/volume] in mg/dL to non-numeric Juan C's Serum or Plasma results) [facility], ) Alkaline 86 IU/L Normal (applies [...] Serum or Plasma ID Date Data Source [id number] 05/01/2020 12:00:00 AM EDT [facility] ([facility] [facility], ) Name Value Range Interpretation Description Data Sup porting Code Source(s) Document(s ) Leukocytes 13.3 Above high normal MEDGEN (St [#/volume] in x10E3/uL Juan C's Blood by [facility], ) Automated count Erythrocytes 2.72 Below lower panic MEDGEN (S t [#/volume] in x10E6/uL limits Juan C's Blood by [facility], ) Automated count Hemoglobin 9.1 g/dL Below low normal MEDGEN (St [Mass/volume] in [facility] Blood [facility], ) Hematocrit 27.8 % Below low normal MEDGEN (St [Volume Juan C's Fraction] of [facility], ) Blood by Automated count MCV 102 fL Above high normal MEDGEN ([facility], ) MCH 33.5 pg Above high normal MEDGEN ([facility], ) MCHC 32.7 Normal (applies MEDGEN (St g/dL to non-numeric Juan C's results) [facility], ) RDW 18.4 % Above high normal MEDGEN ([facility], ) Platelets 230 Normal (applies MEDGEN (St [#/area] in x10E3/uL to non-numeric Juan C's Blood by results) [facility]) Microscopy high power field Neutrophils [#] 49 % Normal (applies MEDGEN ( St in Body fluid by to non-numeric Juan C's Manual count results) [facility]) Monocytes 8 % Normal (applies MEDGEN (St [#/volume] in to non-numeric Juan C's Cord blood results) [facility]) Lymphs 33 % Normal (applies MEDGEN (St to non-numeric Juan C's results) [facility]) Eos 4 % Normal (applies [facility]GEN (St to non-numeric Juan C's results) [facility]) Basos 0 % Normal (applies [facility]GEN (St to non-numeric Juan C's results) [facility]) Immature cells Note Normal (applies MEDGEN (S t [#/volume] in to non-numeric Juan C's Blood results) [facility]) Neutrophils 6.5 Normal (applies MEDGEN (St (Absolute) x10E3/uL to non-numeric Juan C's results) [facility]) Lymphs 4.4 Above high normal [facility] (St (Absolute) x10E3/uL Juan C's [facility]) Eos (Absolute) 0.5 Above high normal MED[facility] (St x10E3/uL Juan C's [facility]) Monocytes(Absolu 1.1 Above high normal MEDGE N (St te) x10E3/uL [facility]'s [facility]) Baso (Absolute) 0.0 Normal (applies MEDGEN ( St x10E3/uL to non-numeric Juna C's results) [facility]) NRBC 8 % Above high normal [facility] ([facility], ) Hematology Note: Normal (applies [facility] (St Comments: to non-numeric Juan C's results) [facility]) ID Date Data Source [id number] 05/01/2020 12:00:00 AM EDT [facility] ([facility], ) Name Value Range Interpretation Description Data Sup porting Code Source(s) Document(s ) Metamyelocytes [#] 2 % Above high normal MED GEN (St in Body fluid by Juan C's Manual count [facility], ) Myelocytes [#] in 4 % Above high normal MEDG EN (St Body fluid by Juan C's Manual count [facility], ) ID Date Data Source [id number] 05/01/2020 12:00:00 AM EDT [facility] ([facility], ) Name Value Range Interpretation Code Description Data Supporting Source(s) Document(s ) Ferritin, 191 ng/mL Normal (applies to [facility] (St Serum non-numeric Juan C's results) Medical, ) ID Date Data Source [id number] 05/01/2020 12:00:00 AM EDT [facility] ([facility], ) Name Value Range Interpretation Description Data Sup porting Code Source(s) Document(s ) Deprecated 2.4 mg/dL Below low normal [facility] (St Phosphorus Juan C's [Mass/time] in Medical, ) 24 hour Urine ID Date Data Source [id number] 05/01/2020 12:00:00 AM EDT [facility] ([facility], ) Name Value Range Interpretation Description Data Sup porting Code Source(s) Document(s ) Vitamin D, 29.4 Below low normal [facility]GEN (St 25-Hydroxy ng/mL [facility], ) ID Date Data Source [id number] 05/01/2020 12:00:00 AM EDT [facility] ([facility], ) Name Value Range Interpretation Code Description Data Supporting Source(s) Document(s ) Creatinine 77.9 mg/dL Normal (applies to [facility]GEN (S t , Urine non-numeric Juan C's results) Medical, ) Protein,To 227.0 Normal (applies to [facility] (St ruth,Urine mg/dL non-numeric Juan C's results) Medical, ) Protein/Cr 2914 mg/g Above high normal [facility] (St eat Ratio creat [facility]'s [facility], ) ID Date Data Source [id number] 05/01/2020 12:00:00 AM EDT [facility] ([facility], ) Name Value Range Interpretation Description [...] to non-numeric Juan C's Urine collected results) [facility], for unspecified PC) duration Ketones Negative Normal [...] (S t to non-numeric Juan C's results) [facility], ) Microscopic See below: Normal (applies [facility] (St Examination to non-numeric Juan C's results) [facility], ) ID Date Data Source [id number] 05/01/2020 12:00:00 AM EDT [facility] ([facility], ) Name Value Range Interpretation Description Data Sup porting Code Source(s) Document(s ) Glucose 90 mg/dL Normal (applies [facility] (St [Mass/volume] in to non-numeric Juan C's Urine collected for results) Medical, unspecified ) duration Urea nitrogen 37 mg/dL Above high MEDGEN (St [Mass/volume] in normal Juan C's Serum or Plasma [facility], ) eGFR If NonAfricn 13 Below low normal MEDGE N (St Am mL/min/1 [facility] [address], ) Creatinine 4.28 Above high MEDGEN (St [Interpretation] in mg/dL normal Juan C's Urine [facility], ) eGFR If Africn Am 15 Below low normal MEDGE N (St mL/min/1 [facility] .73 [facility], ) BUN/Creatinine 9 Below low normal [facility] ( St Ratio [facility], ) Sodium 138 Normal (applies [facility] (St [Moles/volume] in mmol/L to non-numeric Juan C's Serum or Plasma results) Medical, ) Potassium 5.1 Normal (applies [facility] (St [Mass/volume] in mmol/L to non-numeric Juan C's Blood results) Medical, ) Chloride 108 Above high MEDGEN (St [Moles/volume] in mmol/L normal Juan C's Serum or Plasma [facility], ) Carbon dioxide, 19 Below low normal [facility]GEN (St total mmol/L Juan C's [Moles/volume] in Medical, Serum or Plasma PC) Calcium 7.4 Below low normal [facility] (St [Moles/volume] in mg/dL Juan C's Urine collected for Medical, unspecified PC) duration Protein 8.5 g/dL Normal (applies [facility]GEN (St [Mass/volume] in to non-numeric Juan C's Serum or Plasma results) [facility], ) Microalbumin 3.8 g/dL Normal (applies [facility]GEN (St [Mass/time] in to non-numeric Juan C's Urine collected for results) Medical, unspecified ) duration Globulin, Total 4.7 g/dL Above high MEDGEN (St normal [facility], ) A/G Ratio 0.8 Below low normal [facility] ([facility], ) Bilirubin.total 0.4 Normal (applies MEDGEN ( St [Mass/volume] in mg/dL to non-numeric Juan C's Serum or Plasma results) [facility], ) Alkaline 86 IU/L Normal (applies [...] Serum or Plasma ID Date Data Source [id number] 05/01/2020 12:00:00 AM EDT [facility] ([facility], ) Name Value Range Interpretation Description Data Sup porting Code Source(s) Document(s ) Leukocytes 13.3 Above high normal [facility] (St [#/volume] in x10E3/uL Juan C's Blood by [facility], ) Automated count Erythrocytes 2.72 Below lower panic MEDGEN (S t [#/volume] in x10E6/uL limits Juan C's Blood by [facility]) Automated count Hemoglobin 9.1 g/dL Below low normal [facility] (St [Mass/volume] in Juan C's Blood [facility]) Hematocrit 27.8 % Below low normal [facility]GEN (St [Volume Juan C's Fraction] of [facility]) Blood by Automated count MCV 102 fL Above high normal [facility] ([facility], ) MCH 33.5 pg Above high normal [facility] ([facility], ) MCHC 32.7 Normal (applies MEDGEN (St g/dL to non-numeric Juan C's results) [facility]) RDW 18.4 % Above high normal [facility]GEN ([facility]) Platelets 230 Normal (applies [facility]GEN (St [#/area] in x10E3/uL to non-numeric Juan C's Blood by results) [facility]) Microscopy high power field Neutrophils [#] 49 % Normal (applies MEDGEN ( St in Body fluid by to non-numeric Juan C's Manual count results) [facility]) Lymphs 33 % Normal (applies [facility]GEN (St to non-numeric Juan C's results) [facility]) Monocytes 8 % Normal (applies [facility]GEN (St [#/volume] in to non-numeric Juan C's Cord blood results) [facility]) Eos 4 % Normal (applies [facility]GEN (St to non-numeric Juan C's results) [facility]) Basos 0 % Normal (applies [facility]GEN (St to non-numeric Juan C's results) [facility]) Immature cells Note Normal (applies MEDGEN (S t [#/volume] in to non-numeric Juan C's Blood results) [facility]) Neutrophils 6.5 Normal (applies [facility]GEN (St (Absolute) x10E3/uL to non-numeric Juan C's results) [facility]) Lymphs 4.4 Above high normal [facility] (St (Absolute) x10E3/uL Juan C's [facility]) Monocytes(Absolu 1.1 Above high normal MEDGE N (St te) x10E3/uL [facility]) Eos (Absolute) 0.5 Above high normal [facility] (St x10E3/uL [facility]) Baso (Absolute) 0.0 Normal (applies [facility]GEN ( St x10E3/uL to non-numeric Juan C's results) [facility], ) NRBC 8 % Above high normal [facility] ([facility], ) Hematology Note: Normal (applies [facility]GEN (St Comments: to non-numeric Juan C's results) [facility], ) ID Date Data Source [id number] 05/01/2020 12:00:00 AM EDT [facility] ([facility], ) Name Value Range Interpretation Description Data Sup porting Code Source(s) Document(s ) Myelocytes [#] in 4 % Above high normal MEDG EN (St Body fluid by [facility] Manual count [facility], ) Metamyelocytes [#] 2 % Above high normal MED GEN (St in Body fluid by [facility] Manual count [facility], ) ID Date Data Source [id number] 05/01/2020 12:00:00 AM EDT [facility] ([facility], ) Name Value Range Interpretation Code Description Data Supporting Source(s) Document(s ) Ferritin, 191 ng/mL Normal (applies to [facility]GEN (St Serum non-numeric Juan C's results) [facility], ) ID Date Data Source [id number] 05/01/2020 12:00:00 AM EDT [facility] ([facility], ) Name Value Range Interpretation Description Data Sup porting Code Source(s) Document(s ) Deprecated 2.4 mg/dL Below low normal [facility] (St Phosphorus Juan C's [Mass/time] in [facility], ) 24 hour Urine ID Date Data Source [id number] 05/01/2020 12:00:00 AM EDT [facility] ([facility], ) Name Value Range Interpretation Description Data Sup porting Code Source(s) Document(s ) Vitamin D, 29.4 Below low normal [facility] (St 25-Hydroxy ng/mL [facility], ) ID Date Data Source [id number] 05/01/2020 12:00:00 AM EDT [facility] ([facility], ) Name Value Range Interpretation Code Description Data Supporting Source(s) Document(s ) Creatinine 77.9 mg/dL Normal (applies to MEDGEN (S t , Urine non-numeric Juan C's results) [facility], ) Protein,To 227.0 Normal (applies to [facility] (St ruth,Urine mg/dL non-numeric Juan C's results) Medical, ) Protein/Cr 2914 mg/g Above high normal [facility]GEN (St eat Ratio creat [facility], ) ID Date Data Source [id number] 05/01/2020 12:00:00 AM EDT [facility] ([facility], ) Name Value Range Interpretation Description Data Sup porting Code Source(s) Document(s ) Iron 270 ug/dL Normal (applies to MEDGEN (St Bind.Cap.(TIBC non-numeric Juan C's ) results) Medical, ) UIBC 231 ug/dL Normal (applies to [facility] (St non-numeric Juan C's results) Medical, ) Iron 39 ug/dL Normal (applies to [facility] (St [Mass/volume] non-numeric Juan C's in Serum or results) Medical, ) Plasma Iron 14 % Below low normal [facility] (St saturation Juan C's [Mass [facility], ) Fraction] in Serum or Plasma ID Date Data Source [id number] 05/01/2020 12:00:00 AM EDT [facility] ([facility], ) Name Value Range Interpretation Description Data [...] results) Medical, PC) ID Date Data Source [id number] 05/01/2020 12:00:00 AM EDT [facility] ([facility] [...] by Light microscopy ID Date Data Source [id number] 05/01/2020 12:00:00 AM EDT [facility] ([facility] [...] Below low normal MEDGEN ( St Ratio [facility], ) Sodium 138 Normal (applies [facility]GEN (St [Moles/volume] in mmol/L to non-numeric Juan C's Serum or Plasma results) [facility], ) Potassium 5.1 Normal (applies [facility] (St [Mass/volume] in mmol/L to non-numeric Juan C's Blood results) [facility], ) Chloride 108 Above high [facility]GEN (St [Moles/volume] in mmol/L normal Juan C's Serum or Plasma [facility], ) Carbon dioxide, 19 Below low normal [facility]GEN (St total mmol/L Juan C's [Moles/volume] in Medical, Serum or Plasma PC) Calcium 7.4 Below low normal [facility] (St [Moles/volume] in mg/dL Juan C's Urine collected for Medical, unspecified PC) duration Protein 8.5 g/dL Normal (applies [facility]GEN (St [Mass/volume] in to non-numeric Juan C's Serum or Plasma results) [facility], ) Microalbumin 3.8 g/dL Normal (applies [facility]GEN (St [Mass/time] in to non-numeric Juan C's Urine collected for results) [facility], unspecified ) duration Globulin, Total 4.7 g/dL Above high MEDGEN (St normal [facility], ) A/G Ratio 0.8 Below low normal [facility] ([facility], ) Bilirubin.total 0.4 Normal (applies [facility]GEN ( St [Mass/volume] in mg/dL to non-numeric Juan C's Serum or Plasma results) [facility], ) Alkaline 86 IU/L Normal (applies [...] Serum or Plasma ID Date Data Source [id number] 05/01/2020 12:00:00 AM EDT [facility] ([facility], ) Name Value Range Interpretation Description Data Sup porting Code Source(s) Document(s ) Leukocytes 13.3 Above high normal [facility] (St [#/volume] in x10E3/uL Juan C's Blood by [facility]) Automated count Erythrocytes 2.72 Below lower panic MEDGEN (S t [#/volume] in x10E6/uL limits Juan C's Blood by [facility]) Automated count Hemoglobin 9.1 g/dL Below low normal [facility] (St [Mass/volume] in Juan C's Blood [facility]) Hematocrit 27.8 % Below low normal [facility] (St [Volume Juan C's Fraction] of [facility], ) Blood by Automated count MCV 102 fL Above high normal [facility] ([facility], ) MCH 33.5 pg Above high normal [facility] ([facility]) MCHC 32.7 Normal (applies [facility]GEN (St g/dL to non-numeric Juan C's results) [facility]) RDW 18.4 % Above high normal [facility] ([facility], ) Platelets 230 Normal (applies MEDGEN (St [#/area] in x10E3/uL to non-numeric Juan C's Blood by results) [facility]) Microscopy high power field Neutrophils [#] 49 % Normal (applies MEDGEN ( St in Body fluid by to non-numeric Juan C's Manual count results) [facility]) Lymphs 33 % Normal (applies MEDGEN (St to non-numeric Juan C's results) [facility]) Monocytes 8 % Normal (applies MEDGEN (St [#/volume] in to non-numeric Juan C's Cord blood results) [facility]) Eos 4 % Normal (applies MEDGEN (St to non-numeric Juan C's results) [facility]) Basos 0 % Normal (applies MEDGEN (St to non-numeric Juan C's results) [facility]) Immature cells Note Normal (applies MEDGEN (S t [#/volume] in to non-numeric Juan C's Blood results) [facility]) Neutrophils 6.5 Normal (applies MEDGEN (St (Absolute) x10E3/uL to non-numeric Juan C's results) [facility]) Lymphs 4.4 Above high normal MEDGEN (St (Absolute) x10E3/uL Juan C's [facility]) Monocytes(Absolu 1.1 Above high normal MEDGE N (St te) x10E3/uL Juan C's [facility], ) Eos (Absolute) 0.5 Above high normal [facility]GEN (St x10E3/uL [facility], ) Baso (Absolute) 0.0 Normal (applies MEDGEN ( St x10E3/uL to non-numeric Juan C's results) [facility], ) NRBC 8 % Above high normal [facility] ([facility], ) Hematology Note: Normal (applies MEDGEN (St Comments: to non-numeric Juan C's results) [facility], ) ID Date Data Source [id number] 05/01/2020 12:00:00 AM EDT [facility] ([facility], ) Name Value Range Interpretation Description Data Sup porting Code Source(s) Document(s ) Metamyelocytes [#] 2 % Above high normal MED GEN (St in Body fluid by [facility] Manual count [facility], ) Myelocytes [#] in 4 % Above high normal MEDG EN (St Body fluid by [facility] Manual count [facility], ) ID Date Data Source [id number] 05/01/2020 12:00:00 AM EDT [facility] ([facility], ) Name Value Range Interpretation Code Description Data Supporting Source(s) Document(s ) Ferritin, 191 ng/mL Normal (applies to MEDGEN (St Serum non-numeric Juan C's results) [facility], ) ID Date Data Source [id number] 05/01/2020 12:00:00 AM EDT [facility] ([facility], ) Name Value Range Interpretation Description Data Sup porting Code Source(s) Document(s ) Deprecated 2.4 mg/dL Below low normal MEDGEN (St Phosphorus Juan C's [Mass/time] in [facility], ) 24 hour Urine ID Date Data Source [id number] 05/01/2020 12:00:00 AM EDT [facility] ([facility], ) Name Value Range Interpretation Description Data Sup porting Code Source(s) Document(s ) Vitamin D, 29.4 Below low normal MEDGEN (St 25-Hydroxy ng/mL [facility], ) ID Date Data Source [id number] 05/01/2020 12:00:00 AM EDT [facility] ([facility], ) Name Value Range Interpretation Code Description Data Supporting Source(s) Document(s ) Creatinine 77.9 mg/dL Normal (applies to MEDGEN (S t , Urine non-numeric Juan C's results) Medical, PC) Protein,To 227.0 Normal (applies to [facility]GEN (St ruth,Urine mg/dL non-numeric Juan C's results) Medical, PC) Protein/Cr 2914 mg/g Above high normal MEDGEN (St eat Ratio creat Juan C's [facility], ) ID Date Data Source [id number] 05/01/2020 12:00:00 AM EDT [facility] ([facility], ) Name Value Range Interpretation Description Data [...] Serum or Plasma ID Date Data Source [id number] 05/01/2020 12:00:00 AM EDT [facility] ([facility], ) Name Value Range Interpretation Description Data [...] results) Medical, ) ID Date Data Source [id number] 05/01/2020 12:00:00 AM EDT [facility] (St [facility], ) Name Value Range Interpretation Description [...] by Light microscopy ID Date Data Source [id number] 05/01/2020 12:00:00 AM EDT [facility] ([facility], ) Name Value Range Interpretation Description Data Sup porting Code Source(s) Document(s ) Glucose 90 mg/dL Normal (applies MEDGEN (St [Mass/volume] in to non-numeric Juan C's Urine collected for results) Medical, unspecified ) duration Urea nitrogen 37 mg/dL Above high MEDGEN (St [Mass/volume] in normal Juan C's Serum or Plasma Medical, ) eGFR If NonAfricn 13 Below low normal MEDGE N (St Am mL/min/1 Juan C's .73 Medical, ) Creatinine 4.28 Above high MEDGEN (St [Interpretation] in mg/dL normal Juan C's Urine [facility], ) eGFR If Africn Am 15 Below low normal MEDGE N (St mL/min/1 Juan C's .73 [facility], ) BUN/Creatinine 9 Below low normal MEDGEN ( St Ratio Juan C's [facility], ) Sodium 138 Normal (applies MEDGEN (St [Moles/volume] in mmol/L to non-numeric Juan C's Serum or Plasma results) Medical, ) Potassium 5.1 Normal (applies MEDGEN (St [Mass/volume] in mmol/L to non-numeric Juan C's Blood results) [facility], ) Chloride 108 Above high MEDGEN (St [Moles/volume] in mmol/L normal Juan C's Serum or Plasma [facility], ) Carbon dioxide, 19 Below low normal [...] non-numeric Juan C's Serum or Plasma results) [facility], ) Globulin, Total 4.7 g/dL Above high MEDGEN (St normal [facility], ) A/G Ratio 0.8 Below low normal [facility] ([facility], ) Alkaline 86 IU/L Normal (applies MEDGEN (St phosphatase to non-numeric Juan C's [Enzymatic results) Medical, activity/volume] in ) Serum, Plasma or Blood Bilirubin.total 0.4 Normal (applies MEDGEN ( St [Mass/volume] in mg/dL to non-numeric Juan C's Serum or Plasma results) Medical, ) Aspartate 37 IU/L Normal (applies MEDGEN (St aminotransferase to non-numeric Juan C's [Enzymatic results) Medical, activity/volume] in PC) Serum or Plasma Alanine 43 IU/L Normal (applies MEDGEN (St aminotransferase to non-numeric Juan C's [Enzymatic results) Medical, activity/volume] in PC) Serum or Plasma ID Date Data Source [id number] 05/01/2020 12:00:00 AM EDT [facility] ([facility], ) Name Value Range Interpretation Description Data Sup porting Code Source(s) Document(s ) Leukocytes 13.3 Above high normal MEDGEN (St [#/volume] in x10E3/uL Juan C's Blood by [facility], ) Automated count Hemoglobin 9.1 g/dL Below low normal MEDGEN (St [Mass/volume] in [facility] Blood [facility]) Erythrocytes 2.72 Below lower panic MEDGEN (S t [#/volume] in x10E6/uL limits Juan C's Blood by [facility]) Automated count Hematocrit 27.8 % Below low normal MEDGEN (St [Volume Juan C's Fraction] of [facility]) Blood by Automated count MCV 102 fL Above high normal [facility]GEN ([facility], ) MCH 33.5 pg Above high normal [facility]GEN ([facility], ) MCHC 32.7 Normal (applies MEDGEN (St g/dL to non-numeric Juan C's results) [facility]) RDW 18.4 % Above high normal [facility]GEN ([facility], ) Platelets 230 Normal (applies MEDGEN (St [#/area] in x10E3/uL to non-numeric Juan C's Blood by results) [facility]) Microscopy high power field Neutrophils [#] 49 % Normal (applies MEDGEN ( St in Body fluid by to non-numeric Juan C's Manual count results) [facility]) Lymphs 33 % Normal (applies MEDGEN (St to non-numeric Juan C's results) [facility]) Monocytes 8 % Normal (applies MEDGEN (St [#/volume] in to non-numeric Juan C's Cord blood results) [facility]) Eos 4 % Normal (applies MEDGEN (St to non-numeric Juan C's results) [facility]) Basos 0 % Normal (applies MEDGEN (St to non-numeric Juan C's results) [facility]) Neutrophils 6.5 Normal (applies MEDGEN (St (Absolute) x10E3/uL to non-numeric Juan C's results) [facility]) Immature cells Note Normal (applies MEDGEN (S t [#/volume] in to non-numeric Juan C's Blood results) [facility]) Lymphs 4.4 Above high normal MEDGEN (St (Absolute) x10E3/uL Juan C's [facility], ) Monocytes(Absolu 1.1 Above high normal MEDGE N (St te) x10E3/uL [facility], ) Baso (Absolute) 0.0 Normal (applies MEDGEN ( St x10E3/uL to non-numeric Juan C's results) [facility], ) Eos (Absolute) 0.5 Above high normal MEDGEN (St x10E3/uL [facility], ) NRBC 8 % Above high normal MEDGEN ([facility], ) Hematology Note: Normal (applies MEDGEN (St Comments: to non-numeric Juan C's results) [facility], ) ID Date Data Source [id number] 05/01/2020 12:00:00 AM EDT MEDGEN ([facility], ) Name Value Range Interpretation Description Data Sup porting Code Source(s) Document(s ) Metamyelocytes [#] 2 % Above high normal MED GEN (St in Body fluid by [facility] Manual count [facility], ) Myelocytes [#] in 4 % Above high normal MEDG EN (St Body fluid by Juan C's Manual count [facility], ) ID Date Data Source [id number] 04/28/2020 12:00:00 AM EDT MEDGEN ([facility], ) Name Value Range Interpretation Code Description Data Lisa rce(s) Supporting Document(s ) URIC ACID 5.0 mg/dL Normal (applies to MEDGEN (St non-numeric Juan C's results) [facility], ) ID Date Data Source [id number] 04/28/2020 12:00:00 AM EDT MEDGEN ([facility], ) Name Value Range Interpretation Description Data Sup porting Code Source(s) Document(s ) Glucose 92 mg/dL Normal (applies MEDGEN (St [Mass/volume] in to non-numeric Juan C's Urine collected results) [facility], ) for unspecified duration Sodium 133 Below low normal MEDGEN (St [Moles/volume] mmol/L Juan C's in Serum, Plasma [facility], ) or Blood Potassium 5.2 Normal (applies MEDGEN (St [Mass/volume] in mmol/L to non-numeric Juan C's Blood results) [facility], ) Chloride 109 Normal (applies MEDGEN (St [Moles/volume] mmol/L to non-numeric Juan C's in Serum, Plasma results) [facility]) or Blood Urea nitrogen 36 mg/dL Above high normal MEDGEN ( St [Moles/volume] Juan C's in Blood [facility]) Carbon dioxide 20 Normal (applies MEDGEN (S t [VFr/PPres] in mmol/L to non-numeric Juan C's Gas delivery results) [facility]) system Creatinine 4.78 Above high normal MEDGEN (St [Interpretation] mg/dL Juan C's in Urine [facility]) BUN/CREATININE 8 (calc) Normal (applies MEDGEN (S t RATIO to non-numeric Juan C's results) [facility]) Calcium 7.6 Below low normal MEDGEN (St [Moles/volume] mg/dL Juan C's in Urine [facility]) collected for unspecified duration PROTEIN, TOTAL 8.1 g/dL Normal (applies MEDGEN (S t to non-numeric Juan C's results) [facility]) Globulin 4.6 g/dL Above high normal MEDGEN (St [Mass/time] in (calc) Juan C's 24 hour Urine [facility]) Microalbumin 3.5 g/dL Below low normal MEDGEN (St [Mass/time] in [facility] Urine collected [facility]) for unspecified duration ALBUMIN/GLOBULIN 0.8 Below low normal MEDGEN (St RATIO (calc) [facility]) BILIRUBIN,TOTAL 0.3 Normal (applies MEDGEN ( St mg/dL to non-numeric Juan C's results) [facility]) Alkaline 71 U/L Normal (applies MEDGEN (St phosphatase to non-numeric Juan C's [Enzymatic results) [facility]) activity/volume] in Serum, Plasma or Blood AST 37 U/L Above high normal MEDGEN ([facility], ) ALT 36 U/L Normal (applies MEDGEN (St to non-numeric Juan C's results) [facility]) EGFR 13 Below low normal MEDGEN (St [place] mL/min/1 Juan C's .73m2 [facility]) EGFR NON AFR 11 Below low normal MEDGEN (St [place] mL/min/1 Juan C's .73m2 [facility]) ID Date Data Source [id number] 04/28/2020 12:00:00 AM EDT [facility] ([facility] Name Value Range Interpretation Description Data Sup porting Code Source(s) Document(s ) VITAMIN 30 ng/mL Normal (applies to MEDGEN (St D,25-OH,TOTA non-numeric Juan C's L,IA results) [facility]) ID Date Data Source [id number] 04/28/2020 12:00:00 AM EDT MEDGEN ([facility] [...] Juan C's results) [facility], ) Bacteria None Seen Normal (applies MEDGEN (St [Presence] in to non-numeric Juan C's Prostatic fluid results) [facility]) microscopy ID Date Data Source [id number] 04/28/2020 12:00:00 AM EDT MEDGEN ([facility] [...] to non-numeric Juan C's results) [facility]) MYELOCYTES,ABSOL 355 Above high normal MEDGE N (St GEMA cells/uL [facility], ) METAMYELOCYTES,A 278 Above high normal MEDGE N (St BSOLUTE cells/uL [facility]) NUCLEATED RBC 3 /100 Above high normal MEDGEN ( St WBC [facility]) NUCLEATED 278 Above high normal MEDGEN (St RBC,ABSOLUTE cells/uL [facility]) MORPHOLOGICAL Normal (applies MEDGEN (St REVIEW to non-numeric Juan C's results) [facility]) ID Date Data Source [id number] 04/28/2020 12:00:00 AM EDT MEDGEN (St [facility]) Name Value Range Interpretation Description Data Sup porting Code Source(s) Document(s ) WBC 11.1 Above high normal MEDGEN (St Thousand [facility]) RBC 2.50 Below low normal MEDGEN (St Million/ [facility]) Hemoglobin 8.3 g/dL Below low normal MEDGEN (St [Mass/volume] in [facility] Mixed venous [facility]) blood by Oximetry Hematocrit [Pure 24.9 % Below low normal MEDGEN (St volume fraction] [facility] of Blood by [facility]) Automated count MCV 99.6 fL Normal (applies MEDGEN (St to non-numeric Juan C's results) [facility]) MCH 33.2 pg Above high normal MEDGEN ([facility]) MCHC 33.3 Normal (applies MEDGEN (St g/dL to non-numeric Juan C's results) [facility]) RDW 18.2 % Above high normal MEDGEN ([facility]) PLATELET COUNT 214 Normal (applies MEDGEN (S t Thousand to non-numeric Juan C's /uL results) [facility]) MPV 10.1 fL Normal (applies MEDGEN (St to non-numeric Juan C's results) [facility]) DIFFERENTIAL Normal (applies MEDGEN (St to non-numeric Juan C's results) [facility]) ID Date Data Source [id number] 04/28/2020 12:00:00 AM EDT MEDGEN ([facility]) Name Value Range Interpretation Description Data Sup porting Code Source(s) Document(s ) PHOSPHATE ( 2.5 mg/dL Normal (applies to MEDGEN (St PHOSPHORUS) non-numeric Juan C's results) [facility]) ID Date Data Source [id number] 04/28/2020 12:00:00 AM EDT MEDGEN ([facility], ) Name Value Range Interpretation Code Description Data Lisa rce(s) Supporting Document(s ) URIC ACID 5.0 mg/dL Normal (applies to MEDGEN (St non-numeric Juan C's results) [facility], ) ID Date Data Source [id number] 04/28/2020 12:00:00 AM EDT MEDGEN ([facility], ) Name Value Range Interpretation Description Data Sup porting Code Source(s) Document(s ) Glucose 92 mg/dL Normal (applies MEDGEN (St [Mass/volume] in to non-numeric Juan C's Urine collected results) [facility], ) for unspecified duration Sodium 133 Below low normal MEDGEN (St [Moles/volume] mmol/L Juan C's in Serum, Plasma [facility], ) or Blood Potassium 5.2 Normal (applies MEDGEN (St [Mass/volume] in mmol/L to non-numeric Juan C's Blood results) [facility], ) Chloride 109 Normal (applies MEDGEN (St [Moles/volume] mmol/L to non-numeric Juan C's in Serum, Plasma results) [facility]) or Blood Carbon dioxide 20 Normal (applies MEDGEN (S t [VFr/PPres] in mmol/L to non-numeric Juan C's Gas delivery results) [facility], ) system Urea nitrogen 36 mg/dL Above high normal MEDGEN ( St [Moles/volume] Juan C's in Blood [facility], ) Creatinine 4.78 Above high normal MEDGEN (St [Interpretation] mg/dL Juan C's in Urine [facility], ) BUN/CREATININE 8 (calc) Normal (applies MEDGEN (S t RATIO to non-numeric Juan C's results) [facility]) PROTEIN, TOTAL 8.1 g/dL Normal (applies MEDGEN (S t to non-numeric Juan C's results) [facility]) Calcium 7.6 Below low normal MEDGEN (St [Moles/volume] mg/dL Juan C's in Urine [facility], ) collected for unspecified duration Microalbumin 3.5 g/dL Below low normal MEDGEN (St [Mass/time] in Juan C's Urine collected [facility]) for unspecified duration Globulin 4.6 g/dL Above high normal MEDGEN (St [Mass/time] in (calc) Juan C's 24 hour Urine [facility], ) ALBUMIN/GLOBULIN 0.8 Below low normal MEDGEN (St RATIO (calc) Juan C's [facility], ) BILIRUBIN,TOTAL 0.3 Normal (applies MEDGEN ( St mg/dL to non-numeric Juan C's results) [facility]) Alkaline 71 U/L Normal (applies MEDGEN (St phosphatase to non-numeric Juan C's [Enzymatic results) [facility]) activity/volume] in Serum, Plasma or Blood AST 37 U/L Above high normal [facility] ([facility], ) EGFR NON AFR 11 Below low normal MEDGEN (St [place] mL/min/1 Juan C's .73m2 [facility], ) ALT 36 U/L Normal (applies MEDGEN (St to non-numeric Juan C's results) [facility]) EGFR 13 Below low normal MEDGEN (St [place] mL/min/1 Juan C's .73m2 [facility], ) ID Date Data Source [id number] 04/28/2020 12:00:00 AM EDT MEDGEN ([facility], ) Name Value Range Interpretation Description Data Sup porting Code Source(s) Document(s ) VITAMIN 30 ng/mL Normal (applies to MEDGEN (St D,25-OH,TOTA non-numeric Juan C's L,IA results) [facility], ) ID Date Data Source [id number] 04/28/2020 12:00:00 AM EDT MEDGEN ([facility], ) Name Value Range Interpretation Description [...] results) [facility]) ID Date Data Source [id number] 04/28/2020 12:00:00 AM EDT MEDGEN ([facility] [...] MEDGEN (St to non-numeric Juan C's results) [facility]) METAMYELOCYTES,% 2.5 % Normal (applies MEDGEN (St to non-numeric Juan C's results) [facility]) NEUTROPHILS, 6749 Normal (applies MEDGEN (St ABSOLUTE cells/uL to non-numeric Juan C's results) [facility]) BAND,ABSOLUTE 67 Normal (applies MEDGEN (St cells/uL to non-numeric Juan C's results) [facility]) LYMPHOCYTES, 2464 Normal (applies MEDGEN (St ABSOLUTE cells/uL to non-numeric Juan C's results) [facility]) MONOCYTES, 844 Normal (applies MEDGEN (St ABSOLUTE cells/uL to non-numeric [facility]'s results) [facility]) EOSINOPHILS, 278 Normal (applies MEDGEN (St ABSOLUTE cells/uL to non-numeric Juan C's results) [facility]) BASOPHILS, 67 Normal (applies MEDGEN (St ABSOLUTE cells/uL to non-numeric [facility] results) [facility]) MYELOCYTES,ABSOL 355 Above high normal MEDGE N (St GEMA cells/[facility]) METAMYELOCYTES,A 278 Above high normal MEDGE N (St BSOLUTE cells/uL [facility]) NUCLEATED RBC 3 /100 Above high normal MEDGEN ( St WBC [facility]) NUCLEATED 278 Above high normal MEDGEN (St RBC,ABSOLUTE cells/uL [facility]) MORPHOLOGICAL Normal (applies MEDGEN (St REVIEW to non-numeric [facility]'s results) [facility]) ID Date Data Source [id number] 04/28/2020 12:00:00 AM EDT MEDGEN ([facility]) Name Value Range Interpretation Description Data Sup porting Code Source(s) Document(s ) WBC 11.1 Above high normal MEDGEN (St Thousand Juan C's /[facility]) RBC 2.50 Below low normal MEDGEN (St Million/ Juan C's [facility]) Hemoglobin 8.3 g/dL Below low normal MEDGEN (St [Mass/volume] in [facility] Mixed venous [facility]) blood by Oximetry Hematocrit [Pure 24.9 % Below low normal MEDGEN (St volume fraction] [facility] of Blood by [facility]) Automated count MCV 99.6 fL Normal (applies MEDGEN (St to non-numeric Juan C's results) [facility], ) MCH 33.2 pg Above high normal MEDGEN ([facility], ) MCHC 33.3 Normal (applies MEDGEN (St g/dL to non-numeric Juan C's results) [facility], ) RDW 18.2 % Above high normal [facility]GEN ([place], ) PLATELET COUNT 214 Normal (applies MEDGEN (S t Thousand to non-numeric Juan C's /uL results) [facility], ) DIFFERENTIAL Normal (applies MEDGEN (St to non-numeric Juan C's results) [facility], ) MPV 10.1 fL Normal (applies MEDGEN (St to non-numeric Juan C's results) [facility], ) ID Date Data Source [id number] 04/28/2020 12:00:00 AM EDT MEDGEN ([facility], ) Name Value Range Interpretation Description Data Sup porting Code Source(s) Document(s ) PHOSPHATE ( 2.5 mg/dL Normal (applies to MEDGEN (St PHOSPHORUS) non-numeric Juan C's results) [facility], ) ID Date Data Source [id number] 04/28/2020 12:00:00 AM EDT MEDGEN ([facility], ) Name Value Range Interpretation Code Description Data Lisa rce(s) Supporting Document(s ) URIC ACID 5.0 mg/dL Normal (applies to MEDGEN (St non-numeric Juan C's results) [facility], ) ID Date Data Source [id number] 04/28/2020 12:00:00 AM EDT MEDGEN ([facility], ) Name Value Range Interpretation Description Data Sup porting Code Source(s) Document(s ) Glucose 92 mg/dL Normal (applies MEDGEN (St [Mass/volume] in to non-numeric Juan C's Urine collected results) [facility], ) for unspecified duration Sodium 133 Below low normal MEDGEN (St [Moles/volume] mmol/L Juan C's in Serum, Plasma [facility], ) or Blood Potassium 5.2 Normal (applies MEDGEN (St [Mass/volume] in mmol/L to non-numeric Juan C's Blood results) [facility], ) Chloride 109 Normal (applies MEDGEN (St [Moles/volume] mmol/L to non-numeric Juan C's in Serum, Plasma results) [facility] or Blood Carbon dioxide 20 Normal (applies MEDGEN (S t [VFr/PPres] in mmol/L to non-numeric Juan C's Gas delivery results) [facility]) system Urea nitrogen 36 mg/dL Above high normal MEDGEN ( St [Moles/volume] Juan C's in Blood [facility]) Creatinine 4.78 Above high normal MEDGEN (St [Interpretation] mg/dL Juan C's in Urine [facility]) BUN/CREATININE 8 (calc) Normal (applies MEDGEN (S t RATIO to non-numeric Juan C's results) [facility]) PROTEIN, TOTAL 8.1 g/dL Normal (applies MEDGEN (S t to non-numeric Juan C's results) [facility]) Calcium 7.6 Below low normal MEDGEN (St [Moles/volume] mg/dL Juan C's in Urine [facility]) collected for unspecified duration Microalbumin 3.5 g/dL Below low normal MEDGEN (St [Mass/time] in [facility] Urine collected [facility]) for unspecified duration Globulin 4.6 g/dL Above high normal MEDGEN (St [Mass/time] in (calc) Juan C's 24 hour Urine [facility]) ALBUMIN/GLOBULIN 0.8 Below low normal MEDGEN (St RATIO (calc) [facility]) BILIRUBIN,TOTAL 0.3 Normal (applies MEDGEN ( St mg/dL to non-numeric Juan C's results) [facility]) Alkaline 71 U/L Normal (applies MEDGEN (St phosphatase to non-numeric Juan C's [Enzymatic results) [facility]) activity/volume] in Serum, Plasma or Blood AST 37 U/L Above high normal MEDGEN ([facility], ) ALT 36 U/L Normal (applies MEDGEN (St to non-numeric Juan C's results) [facility]) EGFR 13 Below low normal MEDGEN (St [place] mL/min/1 Juan C's .73m2 [facility]) EGFR NON AFR 11 Below low normal MEDGEN (St [place] mL/min/1 Juan C's .73m2 [facility]) ID Date Data Source [id number] 04/28/2020 12:00:00 AM EDT MEDGEN ([facility]) Name Value Range Interpretation Description Data Sup porting Code Source(s) Document(s ) VITAMIN 30 ng/mL Normal (applies to MEDGEN (St D,25-OH,TOTA non-numeric Juan C's L,IA results) [facility]) ID Date Data Source [id number] 04/28/2020 12:00:00 AM EDT MEDGEN ([facility] [...] results) Medical, ) ID Date Data Source [id number] 04/28/2020 12:00:00 AM EDT MEDGEN (St Julienne [...] 355 Above high normal MEDGE N (St GEMA cells/uL [facility], ) METAMYELOCYTES,A 278 Above high normal MEDGE N (St BSOLUTE cells/uL [facility], ) NUCLEATED RBC 3 /100 Above high normal MEDGEN ( St WBC [facility], ) NUCLEATED 278 Above high normal MEDGEN (St RBC,ABSOLUTE cells/uL [facility], ) MORPHOLOGICAL Normal (applies MEDGEN (St REVIEW to non-numeric Juan C's results) [facility]) ID Date Data Source [id number] 04/28/2020 12:00:00 AM EDT MEDGEN ([facility], ) Name Value Range Interpretation Description Data Sup porting Code Source(s) Document(s ) WBC 11.1 Above high normal MEDGEN (St Thousand Juan C's /[facility], ) RBC 2.50 Below low normal MEDGEN (St Million/ Juan C's [facility], ) Hemoglobin 8.3 g/dL Below low normal MEDGEN (St [Mass/volume] in [facility] Mixed venous [facility], ) blood by Oximetry Hematocrit [Pure 24.9 % Below low normal MEDGEN (St volume fraction] [facility] of Blood by [facility], ) Automated count MCV 99.6 fL Normal (applies MEDGEN (St to non-numeric Juan C's results) [facility]) MCH 33.2 pg Above high normal MEDGEN ([facility], ) MCHC 33.3 Normal (applies MEDGEN (St g/dL to non-numeric Juan C's results) [facility]) RDW 18.2 % Above high normal MEDGEN ([facility], ) PLATELET COUNT 214 Normal (applies MEDGEN (S t Thousand to non-numeric Juan C's /uL results) [facility], ) MPV 10.1 fL Normal (applies MEDGEN (St to non-numeric Juan C's results) [facility], ) DIFFERENTIAL Normal (applies MEDGEN (St to non-numeric Juan C's results) [facility], ) ID Date Data Source [id number] 04/28/2020 12:00:00 AM EDT MEDGEN ([facility], ) Name Value Range Interpretation Description Data Sup porting Code Source(s) Document(s ) PHOSPHATE ( 2.5 mg/dL Normal (applies to MEDGEN (St PHOSPHORUS) non-numeric Juan C's results) [facility], ) ID Date Data Source [id number] 04/28/2020 12:00:00 AM EDT MEDGEN ([facility], ) Name Value Range Interpretation Code Description Data Lisa rce(s) Supporting Document(s ) URIC ACID 5.0 mg/dL Normal (applies to MEDGEN (St non-numeric Juan C's results) [facility]) ID Date Data Source [id number] 04/28/2020 12:00:00 AM EDT MEDGEN ([facility], ) Name Value Range Interpretation Description Data Sup porting Code Source(s) Document(s ) Glucose 92 mg/dL Normal (applies MEDGEN (St [Mass/volume] in to non-numeric Juan C's Urine collected results) [facility], ) for unspecified duration Sodium 133 Below low normal MEDGEN (St [Moles/volume] mmol/L Juan C's in Serum, Plasma [facility], ) or Blood Potassium 5.2 Normal (applies MEDGEN (St [Mass/volume] in mmol/L to non-numeric Juan C's Blood results) [facility], ) Chloride 109 Normal (applies MEDGEN (St [Moles/volume] mmol/L to non-numeric Juan C's in Serum, Plasma results) [facility]) or Blood Carbon dioxide 20 Normal (applies MEDGEN (S t [VFr/PPres] in mmol/L to non-numeric Juan C's Gas delivery results) [facility], ) system Urea nitrogen 36 mg/dL Above high normal MEDGEN ( St [Moles/volume] Juan C's in Blood [facility], ) Creatinine 4.78 Above high normal MEDGEN (St [Interpretation] mg/dL Juan C's in Urine [facility], ) BUN/CREATININE 8 (calc) Normal (applies MEDGEN (S t RATIO to non-numeric Juan C's results) [facility], ) PROTEIN, TOTAL 8.1 g/dL Normal (applies MEDGEN (S t to non-numeric Juan C's results) [facility], ) Calcium 7.6 Below low normal MEDGEN (St [Moles/volume] mg/dL Juan C's in Urine [facility], ) collected for unspecified duration Microalbumin 3.5 g/dL Below low normal MEDGEN (St [Mass/time] in Juan C's Urine collected [facility], ) for unspecified duration Globulin 4.6 g/dL Above high normal MEDGEN (St [Mass/time] in (calc) Juan C's 24 hour Urine [facility]) ALBUMIN/GLOBULIN 0.8 Below low normal MEDGEN (St RATIO (calc) Juan C's [facility], ) BILIRUBIN,TOTAL 0.3 Normal (applies MEDGEN ( [...] AFR 11 Below low normal MEDGEN (St [place] mL/min/1 Juan C's .73m2 [facility], ) EGFR 13 Below low normal MEDGEN (St [place] mL/min/1 Juan C's .73m2 [facility], ) ID Date Data Source [id number] 04/28/2020 12:00:00 AM EDT MEDGEN ([facility], ) Name Value Range Interpretation Description Data Sup porting Code Source(s) Document(s ) VITAMIN 30 ng/mL Normal (applies to MEDGEN (St D,25-OH,TOTA non-numeric Juan C's L,IA results) Medical, ) ID Date Data Source [id number] 04/28/2020 12:00:00 AM EDT MEDGEN ([facility], ) Name Value Range Interpretation Description Data [...] to non-numeric Juan C's [Presence] in results) [facility] [facility], Body fluid by PC) Automated test strip [...] results) Medical, PC) ID Date Data Source [id number] 04/28/2020 12:00:00 AM EDT MEDGEN ([facility] [...] MEDGEN (St to non-numeric Juan C's results) [facility]) NEUTROPHILS, 6749 Normal (applies MEDGEN (St ABSOLUTE cells/uL to non-numeric Juan C's results) [facility]) BAND,ABSOLUTE 67 Normal (applies MEDGEN (St cells/uL to non-numeric Juan C's results) [facility]) LYMPHOCYTES, 2464 Normal (applies MEDGEN (St ABSOLUTE cells/uL to non-numeric Juan C's results) [facility]) EOSINOPHILS, 278 Normal (applies MEDGEN (St ABSOLUTE cells/uL to non-numeric Juan C's results) [facility]) MONOCYTES, 844 Normal (applies MEDGEN (St ABSOLUTE cells/uL to non-numeric Juan C's results) [facility]) BASOPHILS, 67 Normal (applies MEDGEN (St ABSOLUTE cells/uL to non-numeric [facility]'s results) [facility]) METAMYELOCYTES,A 278 Above high normal MEDGE N (St BSOLUTE cells/uL [facility]) MYELOCYTES,ABSOL 355 Above high normal MEDGE N (St GEMA cells/uL [facility]) NUCLEATED RBC 3 /100 Above high normal MEDGEN ( St WBC [facility]) NUCLEATED 278 Above high normal MEDGEN (St RBC,ABSOLUTE cells/uL [facility]) MORPHOLOGICAL Normal (applies MEDGEN (St REVIEW to non-numeric [facility]'s results) [facility]) ID Date Data Source [id number] 04/28/2020 12:00:00 AM EDT [facility] ([facility]) Name Value Range Interpretation Description Data Sup porting Code Source(s) Document(s ) WBC 11.1 Above high normal MEDGEN (St Thousand Juan C's /[facility]) RBC 2.50 Below low normal MEDGEN (St Million/ Juan C's [facility]) Hemoglobin 8.3 g/dL Below low normal MEDGEN (St [Mass/volume] in [facility] Mixed venous [facility]) blood by Oximetry Hematocrit [Pure 24.9 % Below low normal MEDGEN (St volume fraction] [facility] of Blood by [facility]) Automated count MCV 99.6 fL Normal (applies MEDGEN (St to non-numeric Juan C's results) [facility]) MCH 33.2 pg Above high normal MEDGEN ([facility], ) MCHC 33.3 Normal (applies MEDGEN (St g/dL to non-numeric Juan C's results) Medical, PC) RDW 18.2 % Above high normal MED[facility] ([facility], ) PLATELET COUNT 214 Normal (applies MEDGEN (S t Thousand to non-numeric Juan C's /uL results) Medical, PC) MPV 10.1 fL Normal (applies MEDGEN (St to non-numeric Juan C's results) Medical, PC) DIFFERENTIAL Normal (applies MEDGEN (St to non-numeric Juan C's results) Medical, PC) ID Date Data Source [id number] 04/28/2020 12:00:00 AM EDT MEDGEN ([facility], ) Name Value Range Interpretation Description Data Sup porting Code Source(s) Document(s ) PHOSPHATE ( 2.5 mg/dL Normal (applies to MEDGEN (St PHOSPHORUS) non-numeric Juan C's results) Medical, ) ID Date Data Source [id number] 04/28/2020 12:00:00 AM EDT MEDGEN ([facility], ) Name Value Range Interpretation Description Data Sup porting Code Source(s) Document(s ) VITAMIN 30 ng/mL Normal (applies to MEDGEN (St D,25-OH,TOTA non-numeric Juan C's L,IA results) Medical, ) ID Date Data Source [id number] 04/28/2020 12:00:00 AM EDT MEDGEN ([facility], ) Name Value Range Interpretation Description [...] non-numeric Juan C's specimen results) Medical, ) Glucose Negative Normal (applies [...] results) Medical, PC) ID Date Data Source [id number] 04/28/2020 12:00:00 AM EDT MEDGEN ([facility] [...] MEDGEN (St to non-numeric Juan C's results) [facility]) METAMYELOCYTES,% 2.5 % Normal (applies MEDGEN (St to non-numeric Juan C's results) [facility]) NEUTROPHILS, 6749 Normal (applies MEDGEN (St ABSOLUTE cells/uL to non-numeric Juan C's results) [facility]) BAND,ABSOLUTE 67 Normal (applies MEDGEN (St cells/uL to non-numeric [facility]'s results) [facility]) LYMPHOCYTES, 2464 Normal (applies MEDGEN (St ABSOLUTE cells/uL to non-numeric Juan C's results) [facility]) MONOCYTES, 844 Normal (applies MEDGEN (St ABSOLUTE cells/uL to non-numeric [facility]'s results) [facility]) EOSINOPHILS, 278 Normal (applies MEDGEN (St ABSOLUTE cells/uL to non-numeric Juan C's results) [facility]) BASOPHILS, 67 Normal (applies MEDGEN (St ABSOLUTE cells/uL to non-numeric [facility]'s results) [facility]) MYELOCYTES,ABSOL 355 Above high normal MEDGE N (St GEMA cells/[facility]) METAMYELOCYTES,A 278 Above high normal MEDGE N (St BSOLUTE cells/uL [facility]) NUCLEATED RBC 3 /100 Above high normal MEDGEN ( St WBC [facility]) NUCLEATED 278 Above high normal MEDGEN (St RBC,ABSOLUTE cells/uL [facility]) MORPHOLOGICAL Normal (applies MEDGEN (St REVIEW to non-numeric [facility]'s results) [facility]) ID Date Data Source [id number] 04/28/2020 12:00:00 AM EDT MED[facility] ([facility]) Name Value Range Interpretation Description Data Sup porting Code Source(s) Document(s ) WBC 11.1 Above high normal MEDGEN (St Thousand Juan C's /[facility]) RBC 2.50 Below low normal MEDGEN (St Million/ Juan C's [facility]) Hemoglobin 8.3 g/dL Below low normal MEDGEN (St [Mass/volume] in [facility] Mixed venous [facility]) blood by Oximetry Hematocrit [Pure 24.9 % Below low normal MEDGEN (St volume fraction] [facility] of Blood by [facility]) Automated count MCV 99.6 fL Normal (applies MEDGEN (St to non-numeric Juan C's results) Medical, ) MCH 33.2 pg Above high normal MEDGEN ([facility], ) MCHC 33.3 Normal (applies MEDGEN (St g/dL to non-numeric Juan C's results) [facility], ) RDW 18.2 % Above high normal MED[facility] ([facility], ) PLATELET COUNT 214 Normal (applies MEDGEN (S t Thousand to non-numeric Juan C's /uL results) Medical, ) MPV 10.1 fL Normal (applies MEDGEN (St to non-numeric Juan C's results) Medical, ) DIFFERENTIAL Normal (applies MEDGEN (St to non-numeric Juan C's results) Medical, ) ID Date Data Source [id number] 04/28/2020 12:00:00 AM EDT MEDGEN ([facility], ) Name Value Range Interpretation Description Data Sup porting Code Source(s) Document(s ) PHOSPHATE ( 2.5 mg/dL Normal (applies to MEDGEN (St PHOSPHORUS) non-numeric Juan C's results) [facility], ) ID Date Data Source [id number] 04/28/2020 12:00:00 AM EDT MEDGEN ([facility], ) Name Value Range Interpretation Code Description Data Lisa rce(s) Supporting Document(s ) URIC ACID 5.0 mg/dL Normal (applies to MEDGEN (St non-numeric Juan C's results) [facility], ) ID Date Data Source [id number] 04/28/2020 12:00:00 AM EDT [facility]GEN ([facility], ) Name Value Range Interpretation Description Data Sup porting Code Source(s) Document(s ) Glucose 92 mg/dL Normal (applies MEDGEN (St [Mass/volume] in to non-numeric Juan C's Urine collected results) Medical, ) for unspecified duration Sodium 133 Below low normal MEDGEN (St [Moles/volume] mmol/L Juan C's in Serum, Plasma [facility], ) or Blood Potassium 5.2 Normal (applies MEDGEN (St [Mass/volume] in mmol/L to non-numeric Juan C's Blood results) [facility], ) Chloride 109 Normal (applies MEDGEN (St [Moles/volume] mmol/L to non-numeric Juan C's in Serum, Plasma results) [facility]) or Blood Carbon dioxide 20 Normal (applies MEDGEN (S t [VFr/PPres] in mmol/L to non-numeric Juan C's Gas delivery results) [facility]) system Urea nitrogen 36 mg/dL Above high normal MEDGEN ( St [Moles/volume] Juan C's in Blood [facility]) Creatinine 4.78 Above high normal MEDGEN (St [Interpretation] mg/dL Juan C's in Urine [facility]) BUN/CREATININE 8 (calc) Normal (applies MEDGEN (S t RATIO to non-numeric Juan C's results) [facility]) Calcium 7.6 Below low normal MEDGEN (St [Moles/volume] mg/dL Juan C's in Urine [facility]) collected for unspecified duration PROTEIN, TOTAL 8.1 g/dL Normal (applies MEDGEN (S t to non-numeric Juan C's results) [facility]) Microalbumin 3.5 g/dL Below low normal MEDGEN (St [Mass/time] in [facility] Urine collected [facility]) for unspecified duration Globulin 4.6 g/dL Above high normal MEDGEN (St [Mass/time] in (calc) [facility] 24 hour Urine [facility]) ALBUMIN/GLOBULIN 0.8 Below low normal MEDGEN (St RATIO (calc) [facility]) BILIRUBIN,TOTAL 0.3 Normal (applies MEDGEN ( St mg/dL to non-numeric Juan C's results) [facility]) Alkaline 71 U/L Normal (applies MEDGEN (St phosphatase to non-numeric Juan C's [Enzymatic results) [facility]) activity/volume] in Serum, Plasma or Blood AST 37 U/L Above high normal MEDGEN ([facility], ) ALT 36 U/L Normal (applies MEDGEN (St to non-numeric Juan C's results) [facility]) EGFR NON AFR 11 Below low normal MEDGEN (St BAR[place] mL/min/1 Juan C's .73m2 [facility]) EGFR 13 Below low normal MEDGEN (St [place] mL/min/1 Juan C's .73m2 [facility]) ID Date Data Source [id number] 04/28/2020 12:00:00 AM EDT MEDGEN ([facility]) Name Value Range Interpretation Description Data Sup porting Code Source(s) Document(s ) WBC 11.1 Above high normal MEDGEN (St Thousand/ Juan C's uL [facility], ) RBC 2.50 Below low normal MEDGEN (St Million/u Juan C's L [facility], ) Hematocrit 24.9 % Below low normal MEDGEN (St [Pure volume Juan C's fraction] of [facility], ) Blood by Automated count Hemoglobin 8.3 g/dL Below low normal MEDGEN (St [Mass/volume] Juan C's in Mixed [facility], ) venous blood by Oximetry MCV 99.6 fL Normal (applies to MEDGEN (St non-numeric Juan C's results) [facility], ) MCH 33.2 pg Above high normal [facility] ([facility], ) RDW 18.2 % Above high normal MEDGEN ([facility], ) MCHC 33.3 g/dL Normal (applies to MEDGEN (St non-numeric Juan C's results) [facility], ) PLATELET COUNT 214 Normal (applies to MEDGEN (St Thousand/ non-numeric Juan C's uL results) [facility], ) MPV 10.1 fL Normal (applies to MEDGEN (St non-numeric Juan C's results) [facility], ) ID Date Data Source [id number] 04/28/2020 12:00:00 AM EDT MEDGEN ([facility], ) Name Value Range Interpretation Description Data Sup porting Code Source(s) Document(s ) PHOSPHATE ( 2.5 mg/dL Normal (applies to MEDGEN (St PHOSPHORUS) non-numeric Juan C's results) [facility], ) ID Date Data Source [id number] 04/28/2020 12:00:00 AM EDT MEDGEN ([facility], ) Name Value Range Interpretation Code Description Data Lisa rce(s) Supporting Document(s ) URIC ACID 5.0 mg/dL Normal (applies to MEDGEN (St non-numeric Juan C's results) [facility], ) ID Date Data Source [id number] 04/28/2020 12:00:00 AM EDT MEDGEN ([facility], ) Name Value Range Interpretation Description Data Sup porting Code Source(s) Document(s ) Glucose 92 mg/dL Normal (applies MEDGEN (St [Mass/volume] in to non-numeric Juan C's Urine collected results) [facility], ) for unspecified duration Sodium 133 Below low normal MEDGEN (St [Moles/volume] mmol/L Juan C's in Serum, Plasma [facility]) or Blood Potassium 5.2 Normal (applies MEDGEN (St [Mass/volume] in mmol/L to non-numeric Juan C's Blood results) [facility]) Chloride 109 Normal (applies MEDGEN (St [Moles/volume] mmol/L to non-numeric Juan C's in Serum, Plasma results) [facility]) or Blood Carbon dioxide 20 Normal (applies MEDGEN (S t [VFr/PPres] in mmol/L to non-numeric Juan C's Gas delivery results) [facility]) system Urea nitrogen 36 mg/dL Above high normal MEDGEN ( St [Moles/volume] Juan C's in Blood [facility]) Creatinine 4.78 Above high normal MEDGEN (St [Interpretation] mg/dL Juan C's in Urine [facility]) BUN/CREATININE 8 (calc) Normal (applies MEDGEN (S t RATIO to non-numeric Juan C's results) [facility]) Calcium 7.6 Below low normal MEDGEN (St [Moles/volume] mg/dL Juan C's in Urine [facility]) collected for unspecified duration PROTEIN, TOTAL 8.1 g/dL Normal (applies MEDGEN (S t to non-numeric Juan C's results) [facility]) Microalbumin 3.5 g/dL Below low normal MEDGEN (St [Mass/time] in Juan C's Urine collected [facility]) for unspecified duration Globulin 4.6 g/dL Above high normal MEDGEN (St [Mass/time] in (calc) Juan C's 24 hour Urine [facility]) ALBUMIN/GLOBULIN 0.8 Below low normal MEDGEN (St RATIO (calc) Juan C's [facility]) BILIRUBIN,TOTAL 0.3 Normal (applies MEDGEN ( St mg/dL to non-numeric Juan C's results) [facility]) Alkaline 71 U/L Normal (applies MEDGEN (St phosphatase to non-numeric Juan C's [Enzymatic results) [facility]) activity/volume] in Serum, Plasma or Blood AST 37 U/L Above high normal MEDGEN ([facility], ) ALT 36 U/L Normal (applies MEDGEN (St to non-numeric Juan C's results) [facility]) EGFR NON AFR 11 Below low normal MEDGEN (St [place] mL/min/1 Juan C's .73m2 Medical, PC) EGFR 13 Below low normal MEDGEN (St [place] mL/min/1 Juan C's .73m2 Medical, PC) ID Date Data Source [id number] 04/28/2020 12:00:00 AM EDT MEDGEN ([facility], ) Name Value Range Interpretation Description Data Sup porting Code Source(s) Document(s ) VITAMIN 30 ng/mL Normal (applies to MEDGEN (St D,25-OH,TOTA non-numeric Juan C's L,IA results) Medical, PC) ID Date Data Source [id number] 04/28/2020 12:00:00 AM EDT MEDGEN ([facility] Julienne [...] to non-numeric Juan C's results) Medical, ) SQUAMOUS None Seen Normal (applies MEDGEN (St EPITHELIAL CELLS to non-numeric Juan C's results) Medical, ) Bacteria None Seen Normal (applies MEDGEN (St [Presence] in to non-numeric Juan C's Prostatic fluid results) Medical, by Light ) microscopy HYALINE CAST None Seen Normal (applies MEDGEN (St to non-numeric Juan C's results) Medical, ) ID Date Data Source [id number] 04/28/2020 12:00:00 AM EDT MEDGEN (St Julienne [...] (St non-numeric Juan C's results) Medical, ) BASOPHILS,% 0.6 % Normal (applies to MEDGEN (S t non-numeric Juan C's results) Medical, ) MYELOCYTES,% 3.2 % Normal (applies to MEDGEN ( St non-numeric Juan C's results) Medical, ) BANDS,% 0.6 % Normal (applies to MEDGEN (St non-numeric Juan C's results) Medical, ) METAMYELOCYTE 2.5 % Normal (applies to MEDGEN (St S,% non-numeric Juan C's results) Medical, ) NEUTROPHILS, 6749 Normal (applies to MEDGEN ( St ABSOLUTE cells/uL non-numeric Juan C's results) Medical, ) BAND,ABSOLUTE 67 Normal (applies to MEDGEN (St cells/uL non-numeric Juan C's results) Medical, ) LYMPHOCYTES, 2464 Normal (applies to MEDGEN ( St ABSOLUTE cells/uL non-numeric Juan C's results) Medical, ) MONOCYTES, 844 Normal (applies to MEDGEN (St ABSOLUTE cells/uL non-numeric Juan C's results) Medical, ) EOSINOPHILS, 278 Normal (applies to MEDGEN ( St ABSOLUTE cells/uL non-numeric Juan C's results) Medical, ) MYELOCYTES,AB 355 Above high normal MEDGEN ( St SOLUTE cells/uL Juan C's [facility], ) BASOPHILS, 67 Normal (applies to MEDGEN (St ABSOLUTE cells/uL non-numeric Juan C's results) [facility], ) METAMYELOCYTE 278 Above high normal MEDGEN ( St S,ABSOLUTE cells/uL [facility]'s [facility], ) NUCLEATED RBC 3 /100 Above high normal MEDGEN ( St WBC [facility]'s [facility], ) NUCLEATED 278 Above high normal MEDGEN (St RBC,ABSOLUTE cells/uL [facility], ) ID Date Data Source [id number] 04/20/2020 02:15:00 PM EDT [facility] Name Value Range Interpretation Description Data Sup porting Code Source(s) Document(s ) SARS [facility] coronavirus 2 RNA This lab was ordered by [facility] and reported by [facility]. ID Date Data Source [id number] 04/17/2020 12:00:00 AM EDT MEDGEN ([facility], ) Name Value Range Interpretation Code Description Data Supporting Source(s) Document(s ) Albumin, 741.5 Normal (applies to MEDGEN (St Urine ug/mL non-numeric Juan C's results) [facility], ) ID Date Data Source [id number] 04/17/2020 12:00:00 AM EDT MEDGEN ([facility], ) Name Value Range Interpretation Description Data Sup porting Code Source(s) Document(s ) INR 1.1 Normal (applies MEDGEN (St to non-numeric Juan C's results) Medical, ) Prothrombin 11.4 sec Normal (applies MEDGEN (St Time to non-numeric Juan C's results) Medical, ) aPTT 28 sec Normal (applies MEDGEN (St to non-numeric Juan C's results) Medical, ) ID Date Data Source [id number] 04/17/2020 12:00:00 AM EDT MEDGEN ([facility] Julienne [...] C's Medical, ) ID Date Data Source [id number] 04/17/2020 12:00:00 AM EDT MEDGEN ([facility] Julienne diana's [facility], ) Name Value Range Interpretation Description [...] results) Medical, ) ID Date Data Source [id number] 04/17/2020 12:00:00 AM EDT MEDGEN ([facility] [...] by Light microscopy ID Date Data Source [id number] 04/17/2020 12:00:00 AM EDT MEDGEN ([facility], ) Name Value Range Interpretation Description Data Sup porting Code Source(s) Document(s ) Glucose 89 mg/dL Normal (applies MEDGEN (St [Mass/volume] in to non-numeric Juan C's Urine collected for results) Medical, unspecified PC) duration Urea nitrogen 47 mg/dL Above high MEDGEN (St [Mass/volume] in normal Juan C's Serum or Plasma [facility], ) Creatinine 4.60 Above high MEDGEN (St [Interpretation] in mg/dL normal Juan C's Urine [facility], ) eGFR If NonAfricn 12 Below low normal MEDGE N (St Am mL/min/1 [facility]'s [address] [place] [address], ) eGFR If Africn Am 13 Below low normal MEDGE N (St mL/min/1 [facility]'s .73 [facility], ) BUN/Creatinine 10 Normal (applies MEDGEN (S [...] Juan C's Serum or Plasma Medical, ) Carbon dioxide, 19 Below low normal MEDGEN (St total mmol/L Juan C's [Moles/volume] in Medical, Serum or Plasma PC) Calcium 8.6 Normal (applies MEDGEN (St [Moles/volume] in mg/dL to non-numeric Juan C's Urine collected for results) [facility], unspecified ) duration Microalbumin 4.0 g/dL Normal (applies MEDGEN (St [Mass/time] in to non-numeric Juan C's Urine collected for results) [facility], unspecified ) duration Protein 8.7 g/dL Above high MEDGEN (St [Mass/volume] in normal Juan C's Serum or Plasma [facility], ) Globulin, Total 4.7 g/dL Above high MEDGEN (St normal [facility], ) A/G Ratio 0.9 Below low normal MEDGEN ([facility], ) Bilirubin.total 0.2 Normal (applies MEDGEN ( St [Mass/volume] in mg/dL to non-numeric Juan C's Serum or Plasma results) [facility], ) Alkaline 75 IU/L Normal (applies MEDGEN [...] Serum or Plasma ID Date Data Source [id number] 04/17/2020 12:00:00 AM EDT MEDGEN ([facility], ) Name Value Range Interpretation Description Data Sup porting Code Source(s) Document(s ) Leukocytes 11.4 Above high normal MEDGEN (St [#/volume] in x10E3/uL Juan C's Blood by [facility], ) Automated count Erythrocytes 2.79 Below low normal MEDGEN (St [#/volume] in x10E6/uL Juan C's Blood by [facility], ) Automated count Hemoglobin 9.3 g/dL Below low normal MEDGEN (St [Mass/volume] in Juan C's Blood [facility], ) Hematocrit 27.3 % Below low normal MEDGEN (St [Volume Juan C's Fraction] of [facility], ) Blood by Automated count MCV 98 fL Above high normal MEDGEN ([facility], ) MCH 33.3 pg Above high normal MEDGEN ([facility], ) MCHC 34.1 Normal (applies MEDGEN (St g/dL to non-numeric Juan C's results) [facility], ) RDW 17.5 % Above high normal [facility]GEN ([facility], ) Neutrophils [#] 71 % Normal (applies MEDGEN ( St in Body fluid by to non-numeric Juan C's Manual count results) [facility], ) Platelets 146 Below low normal MEDGEN (St [#/area] in x10E3/uL Juan C's Blood by [facility], ) Microscopy high power field Lymphs 12 % Normal (applies MEDGEN (St to non-numeric Juan C's results) [facility], ) Monocytes 9 % Normal (applies MEDGEN (St [#/volume] in to non-numeric Juan C's Cord blood results) [facility], ) Eos 4 % Normal (applies MEDGEN (St to non-numeric Juan C's results) [facility], ) Basos 0 % Normal (applies MEDGEN (St to non-numeric Juan C's results) [facility], ) Neutrophils 8.2 Above high normal MEDGEN (St (Absolute) x10E3/uL Juan C's [facility], ) Lymphs 1.4 Normal (applies MEDGEN (St (Absolute) x10E3/uL to non-numeric Juan C's results) [facility], ) Monocytes(Absolu 1.0 Above high normal MEDGE N (St te) x10E3/uL Juan C's [facility], ) Eos (Absolute) 0.4 Normal (applies MEDGEN (S t x10E3/uL to non-numeric Juan C's results) [facility], ) Baso (Absolute) 0.0 Normal (applies MEDGEN ( St x10E3/uL to non-numeric Juan C's results) [facility], ) Immature 4 % Normal (applies MEDGEN (St Granulocytes to non-numeric Juan C's results) [facility], ) Immature Grans 0.4 Above high normal MEDGEN (St (Abs) x10E3/uL Juan C's [facility], ) NRBC 1 % Above high normal [facility]GEN ([facility], ) ID Date Data Source [id number] 04/17/2020 12:00:00 AM EDT MED[facility] ([facility], ) Name Value Range Interpretation Code Description Data Supporting Source(s) Document(s ) Albumin, 741.5 Normal (applies to MEDGEN (St Urine ug/mL non-numeric Juan C's results) Medical, ) ID Date Data Source [id number] 04/17/2020 12:00:00 AM EDT [facility] ([facility], ) Name Value Range Interpretation Description Data Sup porting Code Source(s) Document(s ) INR 1.1 Normal (applies [facility] (St to non-numeric Juan C's results) [facility], PC) Prothrombin 11.4 sec Normal (applies [facility] (St Time to non-numeric [facility] C's results) [facility], [facility]) aPTT 28 sec Normal (applies [facility] (St to non-numeric [facility]'s results) [facility], [facility]) ID Date Data Source [id number] 04/17/2020 12:00:00 AM EDT [facility] ([facility], ) Name Value Range Interpretation Code Description Data Supporting Source(s) Document(s ) Creatinine 74.9 mg/dL Normal (applies to [facility] (S t , Urine non-numeric Juan C's results) [facility], [facility]) Protein,To 185.1 Normal (applies to [facility] (St ruth,Urine mg/dL non-numeric Juan C's results) Medical, ) Protein/Cr 2471 mg/g Above high normal [facility]GEN (St eat Ratio creat [facility], ) ID Date Data Source [id number] 04/17/2020 12:00:00 AM EDT [facility] ([facility], ) Name Value Range Interpretation Description [...] Normal (applies [facility]GEN (St Examination to non-numeric Juna C's results) Medical, ) ID Date Data Source [id number] 04/17/2020 12:00:00 AM EDT [facility] ([facility], ) Name Value Range Interpretation Description [...] by Light microscopy ID Date Data Source [id number] 04/17/2020 12:00:00 AM EDT MED[facility] (St [facility] [...] N (St Am mL/min/1 Juan C's .73 [facility], ) eGFR If Africn Am 13 Below low normal MEDGE N (St mL/min/1 [facility]'s .73 [facility], ) BUN/Creatinine 10 Normal (applies [facility] (S [...] mmol/L normal Juan C's Serum or Plasma [facility], ) Calcium 8.6 Normal (applies [facility] (St [Moles/volume] in mg/dL to non-numeric Juan C's Urine collected for results) Medical, unspecified PC) duration Protein 8.7 g/dL Above high MEDGEN (St [Mass/volume] in normal Juan C's Serum or Plasma [facility], ) Microalbumin 4.0 g/dL Normal (applies [facility] (St [Mass/time] in to non-numeric Juan C's Urine collected for results) Medical, unspecified PC) duration Globulin, Total 4.7 g/dL Above high [facility] (St normal [facility], ) A/G Ratio 0.9 Below low normal [facility] ([facility], ) Bilirubin.total 0.2 Normal (applies [facility]GEN [...] Serum or Plasma ID Date Data Source [id number] 04/17/2020 12:00:00 AM EDT [facility] ([facility], ) Name Value Range Interpretation Description Data Sup porting Code Source(s) Document(s ) Leukocytes 11.4 Above high normal MED[facility] (St [#/volume] in x10E3/uL Juan C's Blood by [facility], ) Automated count Hemoglobin 9.3 g/dL Below low normal [facility] (St [Mass/volume] in Juan C's Blood [facility], ) Erythrocytes 2.79 Below low normal [facility] (St [#/volume] in x10E6/uL Juan C's Blood by [facility], ) Automated count Hematocrit 27.3 % Below low normal [facility] (St [Volume Juan C's Fraction] of [facility], ) Blood by Automated count MCV 98 fL Above high normal [facility] ([facility], ) MCHC 34.1 Normal (applies [facility] (St g/dL to non-numeric Juan C's results) [facility], ) MCH 33.3 pg Above high normal [facility] ([facility], ) RDW 17.5 % Above high normal [facility] ([facility], ) Platelets 146 Below low normal [facility] (St [#/area] in x10E3/uL Juan C's Blood by [facility], ) Microscopy high power field Neutrophils [#] 71 % Normal (applies [facility] ( St in Body fluid by to non-numeric Juan C's Manual count results) [facility], ) Lymphs 12 % Normal (applies [facility] (St to non-numeric Juan C's results) [facility], ) Monocytes 9 % Normal (applies [facility] (St [#/volume] in to non-numeric Juan C's Cord blood results) [facility], ) Eos 4 % Normal (applies [facility] (St to non-numeric Juan C's results) [facility], ) Basos 0 % Normal (applies [facility] (St to non-numeric Juan C's results) [facility], ) Lymphs 1.4 Normal (applies [facility] (St (Absolute) x10E3/uL to non-numeric Juan C's results) [facility]) Neutrophils 8.2 Above high normal [facility] (St (Absolute) x10E3/uL [facility] Medical, ) Monocytes(Absolu 1.0 Above high normal MEDGE N (St te) x10E3/uL [facility], ) Eos (Absolute) 0.4 Normal (applies [facility] (S t x10E3/uL to non-numeric Juan C's results) [facility], ) Baso (Absolute) 0.0 Normal (applies [facility] ( St x10E3/uL to non-numeric Juan C's results) Medical, ) Immature Grans 0.4 Above high normal [facility] (St (Abs) x10E3/uL [facility], ) Immature 4 % Normal (applies [facility] (St Granulocytes to non-numeric Juan C's results) [facility], ) NRBC 1 % Above high normal [facility] ([facility], ) ID Date Data Source [id number] 04/17/2020 12:00:00 AM EDT [facility] ([facility], ) Name Value Range Interpretation Code Description Data Supporting Source(s) Document(s ) Albumin, 741.5 Normal (applies to [facility] (St Urine ug/mL non-numeric Juan C's results) [facility], ) ID Date Data Source [id number] 04/17/2020 12:00:00 AM EDT [facility] ([facility], ) Name Value Range Interpretation Description Data Sup porting Code Source(s) Document(s ) INR 1.1 Normal (applies [facility] (St to non-numeric Juan C's results) [facility], ) Prothrombin 11.4 sec Normal (applies [facility] (St Time to non-numeric Juan C's results) [facility], ) aPTT 28 sec Normal (applies [facility] (St to non-numeric Juan C's results) [facility], ) ID Date Data Source [id number] 04/17/2020 12:00:00 AM EDT [facility] ([facility], ) Name Value Range Interpretation Code Description Data Supporting Source(s) Document(s ) Creatinine 74.9 mg/dL Normal (applies to [facility] (S t , Urine non-numeric Juan C's results) [facility], ) Protein,To 185.1 Normal (applies to [facility] (St ruth,Urine mg/dL non-numeric Juan C's results) [facility], ) Protein/Cr 2471 mg/g Above high normal [facility] (St eat Ratio creat [facility], ) ID Date Data Source [id number] 04/17/2020 12:00:00 AM EDT [facility] ([facility] [...] results) Medical, ) ID Date Data Source [id number] 04/17/2020 12:00:00 AM EDT [facility] ([facility] [...] by Light microscopy ID Date Data Source [id number] 04/17/2020 12:00:00 AM EDT [facility] ([facility] [...] .73 Medical, ) eGFR If Africn Am 13 Below low normal MEDGE N (St mL/min/1 Juan C's .73 [facility], ) BUN/Creatinine 10 Normal (applies [facility] (S t Ratio to non-numeric Juan C's results) Medical, ) Sodium 136 Normal (applies [facility] (St [Moles/volume] in mmol/L to non-numeric Juanc 's Serum or Plasma results) Medical, ) Potassium 4.8 Normal (applies [facility] (St [Mass/volume] in mmol/L to non-numeric Juan C's Blood results) Medical, ) Chloride 107 Above high [facility]GEN (St [Moles/volume] in mmol/L normal Juan C's Serum or Plasma Medical, ) Carbon dioxide, 19 Below low normal [facility] (St total mmol/L Juan C's [Moles/volume] in Medical, Serum or Plasma PC) Calcium 8.6 Normal (applies [facility] (St [Moles/volume] in mg/dL to non-numeric Juan C's Urine collected for results) Medical, unspecified ) duration Protein 8.7 g/dL Above high [facility] (St [Mass/volume] in normal Juan C's Serum or Plasma [facility], ) Microalbumin 4.0 g/dL Normal (applies [facility] (St [Mass/time] in to non-numeric Juan C's Urine collected for results) [facility], unspecified ) duration Globulin, Total 4.7 g/dL Above high [facility]GEN (St normal [facility], ) A/G Ratio 0.9 Below low normal [facility] ([facility], ) Bilirubin.total 0.2 Normal (applies [facility] ( St [Mass/volume] in mg/dL to non-numeric Juan C's Serum or Plasma results) [facility], ) Alkaline 75 IU/L Normal (applies [facility] (St phosphatase to non-numeric Juan C's [Enzymatic results) [facility], activity/volume] in ) Serum, Plasma or Blood Aspartate 20 IU/L Normal (applies [facility] (St aminotransferase to non-numeric Juan C's [Enzymatic results) [facility], activity/volume] in ) Serum or Plasma Alanine 57 IU/L Above high MEDGEN (St aminotransferase normal Juan C's [Enzymatic Medical, activity/volume] in ) Serum or Plasma ID Date Data Source [id number] 04/17/2020 12:00:00 AM EDT MEDGEN ( [facility], ) Name Value Range Interpretation Description Data Sup porting Code Source(s) Document(s ) Leukocytes 11.4 Above high normal [facility] (St [#/volume] in x10E3/uL Juan C's Blood by [facility], ) Automated count Erythrocytes 2.79 Below low normal [facility] (St [#/volume] in x10E6/uL Juan C's Blood by [facility], ) Automated count Hemoglobin 9.3 g/dL Below low normal [facility] (St [Mass/volume] in Juan C's Blood [facility], ) Hematocrit 27.3 % Below low normal [facility] (St [Volume Juan C's Fraction] of [facility], ) Blood by Automated count MCV 98 fL Above high normal [facility] ([facility], ) MCH 33.3 pg Above high normal [facility] ([facility], ) MCHC 34.1 Normal (applies [facility] (St g/dL to non-numeric Juan C's results) [facility], ) RDW 17.5 % Above high normal [facility] ([facility], ) Platelets 146 Below low normal [facility]GEN (St [#/area] in x10E3/uL Juan C's Blood by [facility], ) Microscopy high power field Neutrophils [#] 71 % Normal (applies [facility]GEN ( St in Body fluid by to non-numeric Juan C's Manual count results) [facility], ) Lymphs 12 % Normal (applies [facility] (St to non-numeric Juan C's results) [facility], ) Monocytes 9 % Normal (applies [facility]GEN (St [#/volume] in to non-numeric Juan C's Cord blood results) [facility], ) Eos 4 % Normal (applies [facility] (St to non-numeric Juan C's results) [facility], ) Basos 0 % Normal (applies [facility] (St to non-numeric Juan C's results) [facility], ) Lymphs 1.4 Normal (applies [facility] (St (Absolute) x10E3/uL to non-numeric Juan C's results) [facility], ) Neutrophils 8.2 Above high normal [facility] (St (Absolute) x10E3/uL Juan C's [facility], ) Monocytes(Absolu 1.0 Above high normal MEDGE N (St te) x10E3/uL Juan C's [facility], ) Eos (Absolute) 0.4 Normal (applies [facility] (S t x10E3/uL to non-numeric Juan C's results) [facility], ) Baso (Absolute) 0.0 Normal (applies [facility] ( St x10E3/uL to non-numeric Juan C's results) [facility], ) Immature 4 % Normal (applies [facility] (St Granulocytes to non-numeric Juan C's results) [facility], ) Immature Grans 0.4 Above high normal [facility] (St (Abs) x10E3/uL Juan C's [facility], ) NRBC 1 % Above high normal [facility] ([facility], ) ID Date Data Source [id number] 04/17/2020 12:00:00 AM EDT [facility] ([facility], ) Name Value Range Interpretation Code Description Data Supporting Source(s) Document(s ) Albumin, 741.5 Normal (applies to MEDGEN (St Urine ug/mL non-numeric Juan C's results) [facility], ) ID Date Data Source [id number] 04/17/2020 12:00:00 AM EDT [facility] ([facility] [...] results) Medical, PC) ID Date Data Source [id number] 04/17/2020 12:00:00 AM EDT MED[facility] ([facility], ) Name Value Range Interpretation Code Description Data Supporting Source(s) Document(s ) Creatinine 74.9 mg/dL Normal (applies to MEDGEN (S t , Urine non-numeric Juan C's results) Medical, PC) Protein,To 185.1 Normal (applies to [facility] (St ruth,Urine mg/dL non-numeric Juan C's results) Medical, PC) Protein/Cr 2471 mg/g Above high normal MEDGEN (St eat Ratio creat [facility] Medical, ) ID Date Data Source [id number] 04/17/2020 12:00:00 AM EDT MED[facility] ([facility], ) Name Value Range Interpretation Description [...] results) Medical, ) ID Date Data Source [id number] 04/17/2020 12:00:00 AM EDT [facility] ([facility], ) Name Value Range Interpretation Description [...] by Light microscopy ID Date Data Source [id number] 04/17/2020 12:00:00 AM EDT [facility] ([facility], ) Name Value Range Interpretation Description Data Sup porting Code Source(s) Document(s ) Urea nitrogen 47 mg/dL Above high MEDGEN (St [Mass/volume] in normal Juan C's Serum or Plasma [facility], ) Glucose 89 mg/dL Normal (applies [facility] (St [Mass/volume] in to non-numeric Juan C's Urine collected for results) Medical, unspecified ) duration Creatinine 4.60 Above high [facility]GEN (St [Interpretation] in mg/dL normal Juan C's Urine Medical, ) eGFR If NonAfricn 12 Below low normal MEDGE N (St Am mL/min/1 Juan C's .73 Medical, ) eGFR If Africn Am 13 Below low normal MEDGE N (St mL/min/1 Juan C's .73 Medical, ) Sodium 136 Normal (applies [facility] (St [Moles/volume] in mmol/L to non-numeric Juan C's Serum or Plasma results) Medical, ) BUN/Creatinine 10 Normal (applies [facility]GEN (S t Ratio to non-numeric Juan C's results) Medical, ) Potassium 4.8 Normal (applies [facility]GEN (St [Mass/volume] in mmol/L to non-numeric Juan C's Blood results) Medical, ) Carbon dioxide, 19 Below low normal [facility]GEN (St total mmol/L Juan C's [Moles/volume] in Medical, Serum or Plasma PC) Chloride 107 Above high MEDGEN (St [Moles/volume] in mmol/L normal Juan C's Serum or Plasma [facility], ) Calcium 8.6 Normal (applies [facility]GEN (St [Moles/volume] in mg/dL to non-numeric Juan C's Urine collected for results) Medical, unspecified ) duration Protein 8.7 g/dL Above high MEDGEN (St [Mass/volume] in normal Juan C's Serum or Plasma [facility], ) Microalbumin 4.0 g/dL Normal (applies [facility]GEN (St [Mass/time] in to non-numeric Juan C's Urine collected for results) [facility], unspecified ) duration A/G Ratio 0.9 Below low normal [facility] ([facility], ) Globulin, Total 4.7 g/dL Above high MEDGEN (St normal Juan C's [facility], ) Bilirubin.total 0.2 Normal (applies [facility]GEN ( St [Mass/volume] in mg/dL to non-numeric Juan C's Serum or Plasma results) Medical, ) Aspartate 20 IU/L Normal (applies [facility]GEN (St aminotransferase to non-numeric Juan C's [Enzymatic results) Medical, activity/volume] in PC) Serum or Plasma Alkaline 75 IU/L Normal (applies [facility]GEN (St phosphatase to non-numeric Juan C's [Enzymatic results) Medical, activity/volume] in ) Serum, Plasma or Blood Alanine 57 IU/L Above high MEDGEN (St aminotransferase normal Juan C's [Enzymatic Medical, activity/volume] in ) Serum or Plasma ID Date Data Source [id number] 04/17/2020 12:00:00 AM EDT [facility] ([facility], ) Name Value Range Interpretation Description Data Sup porting Code Source(s) Document(s ) Leukocytes 11.4 Above high normal [facility]GEN (St [#/volume] in x10E3/uL Juan C's Blood by [facility]) Automated count Erythrocytes 2.79 Below low normal [facility] (St [#/volume] in x10E6/uL Juan C's Blood by [facility], ) Automated count Hematocrit 27.3 % Below low normal [facility] (St [Volume Juan C's Fraction] of [facility], ) Blood by Automated count Hemoglobin 9.3 g/dL Below low normal [facility] (St [Mass/volume] in [facility] Blood [facility]) MCH 33.3 pg Above high normal [facility] ([facility], ) MCV 98 fL Above high normal [facility] ([facility], ) MCHC 34.1 Normal (applies MEDGEN (St g/dL to non-numeric Juan C's results) [facility]) Platelets 146 Below low normal MEDGEN (St [#/area] in x10E3/uL Juan C's Blood by [facility], ) Microscopy high power field RDW 17.5 % Above high normal [facility] ([facility], ) Lymphs 12 % Normal (applies MEDGEN (St to non-numeric Juan C's results) [facility]) Neutrophils [#] 71 % Normal (applies MEDGEN ( St in Body fluid by to non-numeric Juan C's Manual count results) [facility]) Monocytes 9 % Normal (applies MEDGEN (St [#/volume] in to non-numeric Juan C's Cord blood results) [facility]) Eos 4 % Normal (applies MEDGEN (St to non-numeric Juan C's results) [facility]) Basos 0 % Normal (applies MEDGEN (St to non-numeric Juan C's results) [facility]) Neutrophils 8.2 Above high normal MED[facility] (St (Absolute) x10E3/uL [facility]) Monocytes(Absolu 1.0 Above high normal MEDGE N (St te) x10E3/uL [facility]) Lymphs 1.4 Normal (applies [facility]GEN (St (Absolute) x10E3/uL to non-numeric Juan C's results) [facility]) Baso (Absolute) 0.0 Normal (applies MEDGEN ( St x10E3/uL to non-numeric Juan C's results) Medical, ) Eos (Absolute) 0.4 Normal (applies MEDGEN (S t x10E3/uL to non-numeric Juan C's results) Medical, ) Immature 4 % Normal (applies MEDGEN (St Granulocytes to non-numeric Juan C's results) Medical, ) Immature Grans 0.4 Above high normal MEDGEN (St (Abs) x10E3/uL Juan C's [facility], ) NRBC 1 % Above high normal [facility] ([facility], ) ID Date Data Source [id number] 04/17/2020 12:00:00 AM EDT [facility] ([facility], ) Name Value Range Interpretation Code Description Data Supporting Source(s) Document(s ) Albumin, 741.5 Normal (applies to MEDGEN (St Urine ug/mL non-numeric Juan C's results) Medical, ) ID Date Data Source [id number] 04/17/2020 12:00:00 AM EDT [facility] ([facility], ) Name Value Range Interpretation Description Data Sup porting Code Source(s) Document(s ) INR 1.1 Normal (applies MEDGEN (St to non-numeric Juan C's results) Medical, ) Prothrombin 11.4 sec Normal (applies MEDGEN (St Time to non-numeric Juan C's results) Medical, ) aPTT 28 sec Normal (applies MEDGEN (St to non-numeric Juan C's results) Medical, ) ID Date Data Source [id number] 04/17/2020 12:00:00 AM EDT [facility] ([facility], ) Name Value Range Interpretation Code Description Data Supporting Source(s) Document(s ) Creatinine 74.9 mg/dL Normal (applies to MEDGEN (S t , Urine non-numeric Juan C's results) Medical, ) Protein,To 185.1 Normal (applies to MEDGEN (St ruth,Urine mg/dL non-numeric Juan C's results) Medical, ) Protein/Cr 2471 mg/g Above high normal [facility]GEN (St eat Ratio creat [facility], ) ID Date Data Source [id number] 04/17/2020 12:00:00 AM EDT [facility] ([facility], ) Name Value Range Interpretation Description [...] results) Medical, ) ID Date Data Source [id number] 04/17/2020 12:00:00 AM EDT MEDGEN (St [facility] [...] MEDGEN (St to non-numeric Juan C's results) [facility], ) Bacteria Few Normal (applies MEDGEN (St [Presence] in to non-numeric Juan C's Prostatic results) [facility], ) fluid by Light microscopy ID Date Data Source [id number] 04/17/2020 12:00:00 AM EDT [facility] ([facility], ) Name Value Range Interpretation Description Data Sup porting Code Source(s) Document(s ) Glucose 89 mg/dL Normal (applies MEDGEN (St [Mass/volume] in to non-numeric Juan C's Urine collected for results) [facility], unspecified ) duration Urea nitrogen 47 mg/dL Above high MEDGEN (St [Mass/volume] in normal Juan C's Serum or Plasma [facility], ) Creatinine 4.60 Above high MEDGEN (St [Interpretation] in mg/dL normal Juan C's Urine [facility], ) eGFR If NonAfricn 12 Below low normal MEDGE N (St Am mL/min/1 [facility] [address], ) eGFR If Africn Am 13 Below low normal MEDGE N (St mL/min/1 [facility] .73 [facility], ) Sodium 136 Normal (applies MEDGEN (St [Moles/volume] in mmol/L to non-numeric Juan C's Serum or Plasma results) [facility], ) BUN/Creatinine 10 Normal (applies MEDGEN (S t Ratio to non-numeric Juan C's results) [facility], ) Potassium 4.8 Normal (applies MEDGEN (St [Mass/volume] in mmol/L to non-numeric Juan C's Blood results) [facility], ) Chloride 107 Above high MEDGEN (St [Moles/volume] in mmol/L normal Juan C's Serum or Plasma [facility], ) Carbon dioxide, 19 Below low normal MEDGEN (St total mmol/L Juan C's [Moles/volume] in Medical, Serum or Plasma PC) Calcium 8.6 Normal (applies MEDGEN (St [Moles/volume] in mg/dL to non-numeric Juan C's Urine collected for results) [facility], unspecified ) duration Protein 8.7 g/dL Above high MEDGEN (St [Mass/volume] in normal Juan C's Serum or Plasma [facility], ) Microalbumin 4.0 g/dL Normal (applies MEDGEN (St [Mass/time] in to non-numeric Juan C's Urine collected for results) Medical, unspecified ) duration Globulin, Total 4.7 g/dL Above high MEDGEN (St normal [facility], ) A/G Ratio 0.9 Below low normal MEDGEN ([facility], ) Bilirubin.total 0.2 Normal (applies MEDGEN ( St [Mass/volume] in mg/dL to non-numeric Juan C's Serum or Plasma results) [facility], ) Alkaline 75 IU/L Normal (applies MEDGEN (St phosphatase to non-numeric Juan C's [Enzymatic results) Medical, activity/volume] in ) Serum, Plasma or Blood Aspartate 20 IU/L Normal (applies MEDGEN (St aminotransferase to non-numeric Juan C's [Enzymatic results) [facility], activity/volume] in ) Serum or Plasma Alanine 57 IU/L Above high MEDGEN (St aminotransferase normal Juan C's [Enzymatic Medical, activity/volume] in ) Serum or Plasma ID Date Data Source [id number] 04/17/2020 12:00:00 AM EDT MEDGEN ([facility], ) Name Value Range Interpretation Description Data Sup porting Code Source(s) Document(s ) Leukocytes 11.4 Above high normal MEDGEN (St [#/volume] in x10E3/uL Juan C's Blood by [facility], ) Automated count Erythrocytes 2.79 Below low normal MEDGEN (St [#/volume] in x10E6/uL Juan C's Blood by [facility], ) Automated count Hemoglobin 9.3 g/dL Below low normal MEDGEN (St [Mass/volume] in Juan C's Blood [facility], ) Hematocrit 27.3 % Below low normal MEDGEN (St [Volume Juan C's Fraction] of [facility], ) Blood by Automated count MCV 98 fL Above high normal MEDGEN ([facility], ) MCH 33.3 pg Above high normal [facility]GEN ([facility], ) MCHC 34.1 Normal (applies MEDGEN (St g/dL to non-numeric Juan C's results) [facility]) RDW 17.5 % Above high normal MEDGEN ([facility], ) Neutrophils [#] 71 % Normal (applies MEDGEN ( St in Body fluid by to non-numeric Juan C's Manual count results) [facility], ) Platelets 146 Below low normal MEDGEN (St [#/area] in x10E3/uL Juan C's Blood by [facility], ) Microscopy high power field Lymphs 12 % Normal (applies MEDGEN (St to non-numeric Juan C's results) [facility], ) Monocytes 9 % Normal (applies MEDGEN (St [#/volume] in to non-numeric Juan C's Cord blood results) [facility], ) Eos 4 % Normal (applies MEDGEN (St to non-numeric Juan C's results) [facility], ) Neutrophils 8.2 Above high normal MEDGEN (St (Absolute) x10E3/uL Juan C's [facility], ) Basos 0 % Normal (applies MEDGEN (St to non-numeric Juan C's results) [facility], ) Lymphs 1.4 Normal (applies MEDGEN (St (Absolute) x10E3/uL to non-numeric Juan C's results) [facility], ) Monocytes(Absolu 1.0 Above high normal MEDGE N (St te) x10E3/uL [facility], ) Eos (Absolute) 0.4 Normal (applies MEDGEN (S t x10E3/uL to non-numeric Juan C's results) [facility], ) Baso (Absolute) 0.0 Normal (applies MEDGEN ( St x10E3/uL to non-numeric Juan C's results) [facility], ) Immature 4 % Normal (applies MEDGEN (St Granulocytes to non-numeric Juan C's results) [facility], ) Immature Grans 0.4 Above high normal MEDGEN (St (Abs) x10E3/uL Juan C's [facility], ) NRBC 1 % Above high normal [facility]GEN ([facility], ) ID Date Data Source [id number] 04/17/2020 12:00:00 AM EDT [facility] ([facility], ) Name Value Range Interpretation Code Description Data Supporting Source(s) Document(s ) Albumin, 741.5 Normal (applies to MEDGEN (St Urine ug/mL non-numeric Juan C's results) [facility], ) ID Date Data Source [id number] 04/17/2020 12:00:00 AM EDT [facility] ([facility], ) Name Value Range Interpretation Description Data Sup porting Code Source(s) Document(s ) INR 1.1 Normal (applies MEDGEN (St to non-numeric Juan C's results) [facility], ) Prothrombin 11.4 sec Normal (applies MEDGEN (St Time to non-numeric Juan C's results) [facility], [facility]) aPTT 28 sec Normal (applies MEDGEN (St to non-numeric Juan C's results) Medical, ) ID Date Data Source [id number] 04/17/2020 12:00:00 AM EDT MEDGEN ([facility] Julienne [...] C's Medical, ) ID Date Data Source [id number] 04/17/2020 12:00:00 AM EDT MED[facility] ([facility] Julienne [...] results) [facility], PC) ID Date Data Source [id number] 04/17/2020 12:00:00 AM EDT [facility] ([facility], ) Name Value Range Interpretation Description [...] by Light microscopy ID Date Data Source [id number] 04/17/2020 12:00:00 AM EDT [facility] ([facility], ) Name Value Range Interpretation Description [...] [Interpretation] in mg/dL normal Juan C's Urine [facility], ) eGFR If NonAfricn 12 Below low [...] mmol/L to non-numeric Juan C's Blood results) [facility], ) Chloride 107 Above high MEDGEN (St [Moles/volume] in mmol/L normal Juan C's Serum or Plasma [facility], ) Carbon dioxide, 19 Below low normal MEDGEN (St total mmol/L Juan C's [Moles/volume] in Medical, Serum or Plasma PC) Calcium 8.6 Normal (applies MEDGEN (St [Moles/volume] in mg/dL to non-numeric Juan C's Urine collected for results) [facility], unspecified ) duration Protein 8.7 g/dL Above high MEDGEN (St [Mass/volume] in normal Juan C's Serum or Plasma [facility], ) Microalbumin 4.0 g/dL Normal (applies MEDGEN (St [Mass/time] in to non-numeric Juan C's Urine collected for results) [facility], unspecified ) duration Globulin, Total 4.7 g/dL Above high MEDGEN (St normal [facility], ) A/G Ratio 0.9 Below low normal [facility], ) Bilirubin.total 0.2 Normal (applies MEDGEN [...] Serum or Plasma ID Date Data Source [id number] 04/17/2020 12:00:00 AM EDT [facility] ([facility], ) Name Value Range Interpretation Description Data Sup porting Code Source(s) Document(s ) Leukocytes 11.4 Above high normal MEDGEN (St [#/volume] in x10E3/uL Juan C's Blood by [facility], ) Automated count Erythrocytes 2.79 Below low normal MEDGEN (St [#/volume] in x10E6/uL Juan C's Blood by [facility], ) Automated count Hemoglobin 9.3 g/dL Below low normal MEDGEN (St [Mass/volume] in Juan C's Blood [facility], ) Hematocrit 27.3 % Below low normal MEDGEN (St [Volume Juan C's Fraction] of [facility], ) Blood by Automated count MCV 98 fL Above high normal [facility] ([facility], ) MCH 33.3 pg Above high normal MEDGEN ([facility], ) MCHC 34.1 Normal (applies MEDGEN (St g/dL to non-numeric Juan C's results) [facility]) RDW 17.5 % Above high normal MEDGEN ([facility], ) Platelets 146 Below low normal MEDGEN (St [#/area] in x10E3/uL Juan C's Blood by [facility], ) Microscopy high power field Neutrophils [#] 71 % Normal (applies MEDGEN ( St in Body fluid by to non-numeric Juan C's Manual count results) [facility]) Lymphs 12 % Normal (applies MEDGEN (St to non-numeric Juan C's results) [facility]) Monocytes 9 % Normal (applies MEDGEN (St [#/volume] in to non-numeric Juan C's Cord blood results) [facility]) Eos 4 % Normal (applies MEDGEN (St to non-numeric Juan C's results) [facility]) Basos 0 % Normal (applies MEDGEN (St to non-numeric Juan C's results) [facility]) Neutrophils 8.2 Above high normal MEDGEN (St (Absolute) x10E3/uL Juan C's [facility]) Lymphs 1.4 Normal (applies MEDGEN (St (Absolute) x10E3/uL to non-numeric Juan C's results) [facility]) Monocytes(Absolu 1.0 Above high normal MEDGE N (St te) x10E3/uL [facility]'s [facility]) Eos (Absolute) 0.4 Normal (applies MEDGEN (S t x10E3/uL to non-numeric Juan C's results) [facility]) Baso (Absolute) 0.0 Normal (applies MEDGEN ( St x10E3/uL to non-numeric Juan C's results) Medical, ) Immature 4 % Normal (applies MEDGEN (St Granulocytes to non-numeric Juan C's results) Medical, ) Immature Grans 0.4 Above high normal MEDGEN (St (Abs) x10E3/uL Juan C's [facility], ) NRBC 1 % Above high normal [facility] ([facility], ) ID Date Data Source [id number] 04/17/2020 12:00:00 AM EDT [facility] ([facility], ) Name Value Range Interpretation Code Description Data Supporting Source(s) Document(s ) Albumin, 741.5 Normal (applies to MEDGEN (St Urine ug/mL non-numeric Juan C's results) Medical, ) ID Date Data Source [id number] 04/17/2020 12:00:00 AM EDT [facility] ([facility], ) Name Value Range Interpretation Description Data Sup porting Code Source(s) Document(s ) INR 1.1 Normal (applies MEDGEN (St to non-numeric Juan C's results) Medical, ) Prothrombin 11.4 sec Normal (applies MEDGEN (St Time to non-numeric Juan C's results) Medical, ) aPTT 28 sec Normal (applies MEDGEN (St to non-numeric Juan C's results) [facility], ) ID Date Data Source [id number] 04/17/2020 12:00:00 AM EDT [facility] ([facility], ) Name Value Range Interpretation Code Description Data Supporting Source(s) Document(s ) Protein,To 185.1 Normal (applies to MEDGEN (St ruth,Urine mg/dL non-numeric Juan C's results) Medical, ) Creatinine 74.9 mg/dL Normal (applies to MEDGEN (S t , Urine non-numeric Juan C's results) Medical, ) Protein/Cr 2471 mg/g Above high normal MEDGEN (St eat Ratio creat [facility]'s [facility], ) ID Date Data Source [id number] 04/17/2020 12:00:00 AM EDT [facility] ([facility], ) Name Value Range Interpretation Description [...] results) Medical, ) ID Date Data Source [id number] 04/17/2020 12:00:00 AM EDT MEDGEN (St Julienne [...] by Light microscopy ID Date Data Source [id number] 04/17/2020 12:00:00 AM EDT [facility] ([facility], ) Name Value Range Interpretation Description [...] low normal MEDGE N (St [facility], ) Creatinine 4.60 Above high MEDGEN (St [Interpretation] in mg/dL normal Juan C's Urine Medical, ) BUN/Creatinine 10 Normal (applies MEDGEN (S t Ratio to non-numeric Juan C's results) Medical, ) eGFR If Africn Am 13 Below low normal MEDGE N (St mL/min/1 [facility]'s 73 [facility], ) Sodium 136 Normal (applies MEDGEN (St [Moles/volume] in mmol/L to non-numeric Juan C's Serum or Plasma results) Medical, ) Chloride 107 Above high MEDGEN (St [Moles/volume] in mmol/L normal Juan C's Serum or Plasma [facility], ) Potassium 4.8 Normal (applies MEDGEN (St [...] Above high MEDGEN (St normal Juan C's [facility], ) A/G Ratio 0.9 Below low normal MEDGEN ([facility], ) Bilirubin.total 0.2 Normal (applies MEDGEN ( St [Mass/volume] in mg/dL to non-numeric Juan C's Serum or Plasma results) [facility]) Alkaline 75 IU/L Normal (applies MEDGEN (St phosphatase to non-numeric Juan C's [Enzymatic results) [facility], activity/volume] in ) Serum, Plasma or Blood Aspartate 20 IU/L Normal (applies MEDGEN (St aminotransferase to non-numeric Juan C's [Enzymatic results) [facility], activity/volume] in ) Serum or Plasma Alanine 57 IU/L Above high MEDGEN (St aminotransferase normal Juan C's [Enzymatic Medical, activity/volume] in ) Serum or Plasma ID Date Data Source [id number] 04/17/2020 12:00:00 AM EDT [facility]GEN ([facility], ) Name Value Range Interpretation Description Data Sup porting Code Source(s) Document(s ) Erythrocytes 2.79 Below low normal MEDGEN (St [#/volume] in x10E6/uL [facility]'s Blood by [facility]) Automated count Leukocytes 11.4 Above high normal MEDGEN (St [#/volume] in x10E3/uL [facility]'s Blood by [facility]) Automated count Hemoglobin 9.3 g/dL Below low normal MEDGEN (St [Mass/volume] in [facility] Blood [facility]) Hematocrit 27.3 % Below low normal MEDGEN (St [Volume Juan C's Fraction] of [facility]) Blood by Automated count MCV 98 fL Above high normal MEDGEN ([facility], ) MCHC 34.1 Normal (applies MEDGEN (St g/dL to non-numeric Juan C's results) [facility]) MCH 33.3 pg Above high normal MEDGEN ([facility], ) RDW 17.5 % Above high normal MEDGEN ([facility], ) Neutrophils [#] 71 % Normal (applies MEDGEN ( St in Body fluid by to non-numeric Juan C's Manual count results) [facility]) Platelets 146 Below low normal MEDGEN (St [#/area] in x10E3/uL [facility]'s Blood by [facility]) Microscopy high power field Monocytes 9 % Normal (applies MEDGEN (St [#/volume] in to non-numeric Juan C's Cord blood results) [facility], ) Lymphs 12 % Normal (applies MEDGEN (St to non-numeric Juan C's results) [facility], ) Eos 4 % Normal (applies MEDGEN (St to non-numeric Juan C's results) [facility], ) Neutrophils 8.2 Above high normal MEDGEN (St (Absolute) x10E3/uL Juan C's [facility], ) Basos 0 % Normal (applies MEDGEN (St to non-numeric Juan C's results) [facility], ) Lymphs 1.4 Normal (applies MEDGEN (St (Absolute) x10E3/uL to non-numeric Juan C's results) [facility], ) Monocytes(Absolu 1.0 Above high normal MEDGE N (St te) x10E3/uL [facility], ) Eos (Absolute) 0.4 Normal (applies MEDGEN (S t x10E3/uL to non-numeric Juan C's results) [facility], ) Immature 4 % Normal (applies MEDGEN (St Granulocytes to non-numeric Juan C's results) [facility], ) Baso (Absolute) 0.0 Normal (applies MEDGEN ( St x10E3/uL to non-numeric Juan C's results) [facility], ) Immature Grans 0.4 Above high normal MEDGEN (St (Abs) x10E3/uL Juan C's [facility], ) NRBC 1 % Above high normal [facility]GEN ([facility], ) ID Date Data Source [id number] 04/17/2020 12:00:00 AM EDT [facility] ([facility], ) Name Value Range Interpretation Code Description Data Supporting Source(s) Document(s ) Albumin, 741.5 Normal (applies to MEDGEN (St Urine ug/mL non-numeric Juan C's results) [facility], ) ID Date Data Source [id number] 04/17/2020 12:00:00 AM EDT [facility] ([facility], ) Name Value Range Interpretation Description Data Sup porting Code Source(s) Document(s ) INR 1.1 Normal (applies MEDGEN (St to non-numeric Juan C's results) Medical, ) Prothrombin 11.4 sec Normal (applies MEDGEN (St Time to non-numeric Juan C's results) [facility], ) aPTT 28 sec Normal (applies MEDGEN (St to non-numeric Juan C's results) [facility], [facility]) ID Date Data Source [id number] 04/17/2020 12:00:00 AM EDT MEDGEN ([facility] [...] C's Medical, ) ID Date Data Source [id number] 04/17/2020 12:00:00 AM EDT MEDGEN ([facility] [...] results) Medical, PC) ID Date Data Source [id number] 04/17/2020 12:00:00 AM EDT MEDGEN ([facility] [...] by Light microscopy ID Date Data Source [id number] 04/17/2020 12:00:00 AM EDT MEDGEN ([facility] [...] mmol/L normal Juan C's Serum or Plasma [facility], ) Carbon dioxide, 19 Below low normal MEDGEN (St total mmol/L Juan C's [Moles/volume] in Medical, Serum or Plasma PC) Calcium 8.6 Normal (applies MEDGEN (St [Moles/volume] in mg/dL to non-numeric Juan C's Urine collected for results) [facility], unspecified ) duration Protein 8.7 g/dL Above high MEDGEN (St [Mass/volume] in normal Juan C's Serum or Plasma [facility], ) Microalbumin 4.0 g/dL Normal (applies MEDGEN (St [Mass/time] in to non-numeric Juan C's Urine collected for results) [facility], unspecified ) duration Globulin, Total 4.7 g/dL Above high MEDGEN (St normal [facility], ) A/G Ratio 0.9 Below low normal MEDGEN ([facility], ) Bilirubin.total 0.2 Normal (applies MEDGEN ( St [Mass/volume] in mg/dL to non-numeric Juan C's Serum or Plasma results) [facility], ) Alkaline 75 IU/L Normal (applies MEDGEN [...] Serum or Plasma ID Date Data Source [id number] 04/17/2020 12:00:00 AM EDT MEDGEN (St [facility], ) Name Value Range Interpretation Description Data Sup porting Code Source(s) Document(s ) Leukocytes 11.4 Above high normal MEDGEN (St [#/volume] in x10E3/uL Juan C's Blood by [facility], ) Automated count Erythrocytes 2.79 Below low normal MEDGEN (St [#/volume] in x10E6/uL Juan C's Blood by [facility]) Automated count Hemoglobin 9.3 g/dL Below low normal MEDGEN (St [Mass/volume] in Juan C's Blood [facility], ) MCV 98 fL Above high normal [facility]GEN ([facility], ) Hematocrit 27.3 % Below low normal MEDGEN (St [Volume Juan C's Fraction] of [facility]) Blood by Automated count MCH 33.3 pg Above high normal MEDGEN ([facility], ) MCHC 34.1 Normal (applies MEDGEN (St g/dL to non-numeric Juan C's results) [facility]) Platelets 146 Below low normal MEDGEN (St [#/area] in x10E3/uL Juan C's Blood by [facility]) Microscopy high power field RDW 17.5 % Above high normal MEDGEN ([facility], ) Neutrophils [#] 71 % Normal (applies MEDGEN ( St in Body fluid by to non-numeric Juan C's Manual count results) [facility]) Lymphs 12 % Normal (applies MEDGEN (St to non-numeric Juan C's results) [facility]) Monocytes 9 % Normal (applies MEDGEN (St [#/volume] in to non-numeric Juan C's Cord blood results) [facility]) Basos 0 % Normal (applies MEDGEN (St to non-numeric Juan C's results) [facility]) Eos 4 % Normal (applies MEDGEN (St to non-numeric Juan C's results) [facility]) Neutrophils 8.2 Above high normal MEDGEN (St (Absolute) x10E3/uL [facility], ) Lymphs 1.4 Normal (applies MEDGEN (St (Absolute) x10E3/uL to non-numeric Juan C's results) [facility]) Monocytes(Absolu 1.0 Above high normal MEDGE N (St te) x10E3/uL [facility], ) Eos (Absolute) 0.4 Normal (applies MEDGEN (S t x10E3/uL to non-numeric Juan C's results) [facility]) Baso (Absolute) 0.0 Normal (applies MEDGEN ( St x10E3/uL to non-numeric Juan C's results) [facility]) Immature 4 % Normal (applies MEDGEN (St Granulocytes to non-numeric Juan C's results) [facility]) Immature Grans 0.4 Above high normal MEDGEN (St (Abs) x10E3/uL [facility], ) NRBC 1 % Above high normal [facility]GEN ([facility], ) ID Date Data Source [id number] 04/06/2020 09:40:00 PM EDT [facility] Name Value Range Interpretation Description Data Sup porting Code Source(s) Document(s ) SARS [facility] CORONAVIRUS 2 RNA This lab was ordered by [facility] and reported by [facility]. ID Date Data Source [id number] 03/27/2020 06:50:00 PM EDT [facility] Name Value Range Interpretation Description Data Sup porting Code Source(s) Document(s ) SARS [facility] CORONAVIRUS 2 RNA This lab was ordered by [facility] and reported by [facility]. ID Date Data Source [id number] 03/22/2020 12:00:00 AM EDT [facility] ([facility], ) Name Value Range Interpretation Code Description Data Lisa rce(s) Supporting Document(s ) ID Date Data Source [id number] 03/22/2020 12:00:00 AM EDT [facility] ([facility], ) Name Value Range Interpretation Code Description Data Supporting Source(s) Document(s ) PTH, Intact 10 pg/mL Below low normal [facility] ([facility], ) ID Date Data Source [id number] 03/22/2020 12:00:00 AM EDT [facility] ([facility], ) Name Value Range Interpretation Code Description Data Supporting Source(s) Document(s ) Ferritin, 349 ng/mL Normal (applies to MEDGEN (St Serum non-numeric Juan C's results) Medical, ) ID Date Data Source [id number] 03/22/2020 12:00:00 AM EDT [facility] ([facility], ) Name Value Range Interpretation Description Data Sup porting Code Source(s) Document(s ) Deprecated 5.4 mg/dL Above high normal MEDGEN (St Phosphorus Juan C's [Mass/time] in Medical, ) 24 hour Urine ID Date Data Source [id number] 03/22/2020 12:00:00 AM EDT [facility] ([facility], ) Name Value Range Interpretation Code Description Data Lisa rce(s) Supporting Document(s ) RAGINI Normal (applies to MEDGEN (St Interpreta non-numeric results) Juan C's M edical, tion:U PC) ID Date Data Source [id number] 03/22/2020 12:00:00 AM EDT [facility] ([facility]) Name Value Range Interpretation Description Data Sup porting Code Source(s) Document(s ) Vitamin D, 30.6 Normal (applies to MEDGEN (St 25-Hydroxy ng/mL non-numeric Juan C's results) Medical, ) ID Date Data Source [id number] 03/22/2020 12:00:00 AM EDT [facility] ([facility]) Name Value Range Interpretation Description Data Sup porting Code Source(s) Document(s ) Free [place] 141.85 Above high normal MEDGEN (St Lt mg/L Juan C's Chains,Ur Medical, PC) Free Lambda 110.44 Above high normal MEDGEN (St Lt mg/L Juan C's Ch[facility]Ur [facility], PC) [place]/Lambd 1.28 Normal (applies to MEDGEN (S t a Ratio,U non-numeric Juan C's results) Medical, ) ID Date Data Source [id number] 03/22/2020 12:00:00 AM EDT [facility] ([facility]) Name Value Range Interpretation Description Data Sup porting Code Source(s) Document(s ) Free [place] 41.1 mg/L Above high normal MEDGEN (St Lt Chains,S Juan C's Medical, PC) Free Lambda 176.0 mg/L Above high normal MEDGEN (S t Lt Chains,S Juan C's Medical, PC) [place]/Lambd 0.23 Below low normal MEDGEN (St a Ratio,S Juan C's Medical, PC) ID Date Data Source [id number] 03/22/2020 12:00:00 AM EDT [facility] ([facility]) Name Value Range Interpretation Code Description Data Supporting Source(s) Document(s ) Creatinine 94.7 mg/dL Normal (applies to MEDGEN (S t , Urine non-numeric Juan C's results) Medical, ) Protein/Cr 1072 mg/g Above high normal MEDGEN (St eat Ratio creat Juan C's Medical, PC) ID Date Data Source [id number] 03/22/2020 12:00:00 AM EDT [facility] ([facility], ) Name Value Range Interpretation Description Data Sup porting Code Source(s) Document(s ) Immunofixation Normal (applies MEDGEN (S t Result, Serum to non-numeric Juan C's results) [facility], ) Immunoglobulin G, 3867 Above high normal MEDG EN (St Qn, Serum mg/dL [facility]) Immunoglobulin A, 17 mg/dL Below low normal MEDGE N (St Qn, Serum [facility]) Immunoglobulin M, 8 mg/dL Below low normal MEDGE N (St Qn, Serum [facility], ) ID Date Data Source [id number] 03/22/2020 12:00:00 AM EDT MEDGEN ([facility], ) Name Value Range Interpretation Description Data Sup porting Code Source(s) Document(s ) Iron 248 ug/dL Below low normal MEDGEN (St Bind.Cap.(TIBC Juan C's ) [facility], ) UIBC 172 ug/dL Normal (applies to MEDGEN (St non-numeric Juan C's results) [facility]) Iron 76 ug/dL Normal (applies to MEDGEN (St [Mass/volume] non-numeric Juan C's in Serum or results) [facility], ) Plasma Iron 31 % Normal (applies to MEDGEN (St saturation non-numeric Juan C's [Mass results) [facility]) Fraction] in Serum or Plasma ID Date Data Source [id number] 03/22/2020 12:00:00 AM EDT [facility] ([facility], ) Name Value Range Interpretation Description Data Sup porting Code Source(s) Document(s ) Protein,Tot 101.5 Normal (applies to MEDGEN (S t al,Urine mg/dL non-numeric Juan C's results) [facility], ) Albumin, U 36.2 % Normal (applies to MEDGEN (St non-numeric Juan C's results) [facility], ) Alpha-1-Nadine 5.7 % Normal (applies to MEDGEN (S t bulin, U non-numeric Juan C's results) [facility]) Alpha-2-Nadine 12.8 % Normal (applies to MEDGEN (S t bulin, U non-numeric Juan C's results) [facility], ) Beta 29.7 % Normal (applies to [...] results) Medical, PC) ID Date Data Source [id number] 03/22/2020 12:00:00 AM EDT [facility] ([facility] Name Value Range Interpretation Description Data Sup porting Code Source(s) Document(s ) Microalbumin 4.0 g/dL Normal (applies MEDGEN (St [Mass/time] in to non-numeric Juan C's Urine collected results) Medical, for unspecified PC) duration Wxotg-3-Ymlwomir 0.2 g/dL Normal (applies MEDGEN (St to non-numeric Juan C's results) Medical, PC) Xzeal-9-Btfwdylh 0.8 g/dL Normal (applies MEDGEN (St to [...] results) Medical, PC) ID Date Data Source [id number] 03/22/2020 12:00:00 AM EDT MED[facility] ([facility] [...] results) Medical, PC) ID Date Data Source [id number] 03/22/2020 12:00:00 AM EDT MED[facility] ([facility] [...] by Light microscopy ID Date Data Source [id number] 03/22/2020 12:00:00 AM EDT MED[facility] ([facility] [...] C's Serum or Plasma results) Medical, PC) Calcium 12.0 Above high MEDGEN (St [Moles/volume] in mg/dL normal Juan C's Urine collected for Medical, unspecified ) duration Protein 9.1 g/dL Above high MEDGEN (St [Mass/volume] in normal Juan C's Serum or Plasma [facility], ) Microalbumin 3.9 g/dL Normal (applies MEDGEN (St [Mass/time] in to non-numeric Juan C's Urine collected for results) Medical, unspecified ) duration A/G Ratio 0.8 Below low normal MEDGEN ([facility], ) Globulin, Total 5.2 g/dL Above high MEDGEN (St normal [facility], ) Bilirubin.total 0.4 Normal (applies MEDGEN ( St [Mass/volume] in mg/dL to non-numeric Juan C's Serum or Plasma results) [facility], ) Alkaline 63 IU/L Normal (applies MEDGEN [...] Serum or Plasma ID Date Data Source [id number] 03/22/2020 12:00:00 AM EDT MEDGEN ([facility], ) Name Value Range Interpretation Description Data Sup porting Code Source(s) Document(s ) Leukocytes 11.7 Above high normal MEDGEN (St [#/volume] in x10E3/uL Juan C's Blood by [facility], ) Automated count Erythrocytes 2.47 Below lower panic MEDGEN (S t [#/volume] in x10E6/uL limits Juan C's Blood by [facility], ) Automated count Hemoglobin 8.2 g/dL Below low normal MEDGEN (St [Mass/volume] in Juan C's Blood [facility], ) Hematocrit 23.3 % Below low normal MEDGEN (St [Volume Juan C's Fraction] of [facility], ) Blood by Automated count MCV 94 fL Normal (applies MEDGEN (St to non-numeric Juan C's results) [facility]) MCH 33.2 pg Above high normal MEDGEN ([facility], ) MCHC 35.2 Normal (applies MEDGEN (St g/dL to non-numeric Juan C's results) [facility], ) RDW 19.0 % Above high normal MEDGEN ([facility], ) Platelets 198 Normal (applies MEDGEN (St [#/area] in x10E3/uL to non-numeric Juan C's Blood by results) [facility], ) Microscopy high power field Neutrophils [#] 54 % Normal (applies MEDGEN ( St in Body fluid by to non-numeric Juan C's Manual count results) [facility], ) Lymphs 13 % Normal (applies MEDGEN (St to non-numeric Juan C's results) [facility], ) Monocytes 16 % Normal (applies MEDGEN (St [#/volume] in to non-numeric Juan C's Cord blood results) [facility], ) Eos 11 % Normal (applies MEDGEN (St to non-numeric Juan C's results) [facility], ) Basos 1 % Normal (applies MEDGEN (St to non-numeric Juan C's results) [facility], ) Neutrophils 6.4 Normal (applies MEDGEN (St (Absolute) x10E3/uL to non-numeric Juan C's results) [facility], ) Lymphs 1.5 Normal (applies MEDGEN (St (Absolute) x10E3/uL to non-numeric Juan C's results) [facility], ) Monocytes(Absolu 1.9 Above high normal MEDGE N (St te) x10E3/uL Juan C's [facility], ) Eos (Absolute) 1.3 Above high normal MEDGEN (St x10E3/uL Juan C's [facility], ) Baso (Absolute) 0.1 Normal (applies MEDGEN ( St x10E3/uL to non-numeric Juan C's results) [facility], ) Immature 5 % Normal (applies MEDGEN (St Granulocytes to non-numeric Juan C's results) [facility]) Immature Grans 0.6 Above high normal MEDGEN (St (Abs) x10E3/uL Juan C's [facility], ) NRBC 4 % Above high normal MEDGEN ([facility], ) ID Date Data Source [id number] 03/22/2020 12:00:00 AM EDT [facility] ([facility], ) Name Value Range Interpretation Code Description Data Lisa rce(s) Supporting Document(s ) ID Date Data Source [id number] 03/22/2020 12:00:00 AM EDT [facility] ([facility], ) Name Value Range Interpretation Code Description Data Supporting Source(s) Document(s ) PTH, Intact 10 pg/mL Below low normal MEDGEN ([facility], ) ID Date Data Source [id number] 03/22/2020 12:00:00 AM EDT [facility] ([facility], ) Name Value Range Interpretation Code Description Data Supporting Source(s) Document(s ) Ferritin, 349 ng/mL Normal (applies to MEDGEN (St Serum non-numeric Juan C's results) [facility], ) ID Date Data Source [id number] 03/22/2020 12:00:00 AM EDT [facility] ([facility], ) Name Value Range Interpretation Description Data Sup porting Code Source(s) Document(s ) Deprecated 5.4 mg/dL Above high normal MEDGEN (St Phosphorus Juan C's [Mass/time] in [facility], ) 24 hour Urine ID Date Data Source [id number] 03/22/2020 12:00:00 AM EDT MEDGEN ([facility], ) Name Value Range Interpretation Code Description Data Lisa rce(s) Supporting Document(s ) RAGINI Normal (applies to MEDGEN (St Interpreta non-numeric results) Juan C's M edical, tion:U ) ID Date Data Source [id number] 03/22/2020 12:00:00 AM EDT MEDGEN ([facility], ) Name Value Range Interpretation Description Data Sup porting Code Source(s) Document(s ) Vitamin D, 30.6 Normal (applies to MEDGEN (St 25-Hydroxy ng/mL non-numeric Juan C's results) [facility], ) ID Date Data Source [id number] 03/22/2020 12:00:00 AM EDT MED[facility] ([facility], ) Name Value Range Interpretation Description Data Sup porting Code Source(s) Document(s ) Free Ecorse 141.85 Above high normal MEDGEN (St Lt mg/L Juan C's Chains,Ur [facility], ) Free Lambda 110.44 Above high normal MEDGEN (St Lt mg/L Juan C's Chains,Ur [facility], ) Ecorse/Lambd 1.28 Normal (applies to MEDGEN (S t a Ratio,U non-numeric Juan C's results) [facility], ) ID Date Data Source [id number] 03/22/2020 12:00:00 AM EDT MEDGEN ([facility], ) Name Value Range Interpretation Description Data Sup porting Code Source(s) Document(s ) Free Ecorse 41.1 mg/L Above high normal MEDGEN (St Lt Chains,S [facility], ) Free Lambda 176.0 mg/L Above high normal MEDGEN (S t Lt Chains,S [facility], ) Ecorse/Lambd 0.23 Below low normal MEDGEN (St a Ratio,S [facility], ) ID Date Data Source [id number] 03/22/2020 12:00:00 AM EDT MEDGEN ([facility], ) Name Value Range Interpretation Code Description Data Supporting Source(s) Document(s ) Creatinine 94.7 mg/dL Normal (applies to MEDGEN (S t , Urine non-numeric Juan C's results) [facility], ) Protein/Cr 1072 mg/g Above high normal MEDGEN (St eat Ratio creat [facility], ) ID Date Data Source [id number] 03/22/2020 12:00:00 AM EDT MEDGEN ([facility], ) Name Value Range Interpretation Description Data Sup porting Code Source(s) Document(s ) Immunofixation Normal (applies MEDGEN (S t Result, Serum to non-numeric Juan C's results) [facility]) Immunoglobulin G, 3867 Above high normal MEDG EN (St Qn, Serum mg/dL [facility]) Immunoglobulin A, 17 mg/dL Below low normal MEDGE N (St Qn, Serum [facility], ) Immunoglobulin M, 8 mg/dL Below low normal MEDGE N (St Qn, Serum [facility], ) ID Date Data Source [id number] 03/22/2020 12:00:00 AM EDT MEDGEN ([facility], ) Name Value Range Interpretation Description Data Sup porting Code Source(s) Document(s ) Iron 248 ug/dL Below low normal MEDGEN (St Bind.Cap.(TIBC Juan C's ) [facility], ) UIBC 172 ug/dL Normal (applies to MEDGEN (St non-numeric Juan C's results) [facility], ) Iron 76 ug/dL Normal (applies to MEDGEN (St [Mass/volume] non-numeric Juan C's in Serum or results) Medical, ) Plasma Iron 31 % Normal (applies to MEDGEN (St saturation non-numeric Juan C's [Mass results) Medical, ) Fraction] in Serum or Plasma ID Date Data Source [id number] 03/22/2020 12:00:00 AM EDT MEDGEN ([facility] [...] results) Medical, ) ID Date Data Source [id number] 03/22/2020 12:00:00 AM EDT [facility] ([facility], ) Name Value Range Interpretation Description Data Sup porting Code Source(s) Document(s ) Microalbumin 4.0 g/dL Normal (applies MEDGEN (St [Mass/time] in to non-numeric Juan C's Urine collected results) Medical, for unspecified PC) duration Asqsf-5-Iwpodtzr 0.2 g/dL Normal (applies MEDGEN (St to non-numeric Juan C's results) Medical, ) Usdrf-7-Exvprnuw 0.8 g/dL Normal (applies MEDGEN (St to non-numeric Juan C's results) Medical, PC) Beta globulin 0.7 g/dL Normal (applies MEDGEN (St [Mass/volume] in to non-numeric Juan C's Urine by results) Medical, Electrophoresis PC) Gamma globulin 3.5 g/dL Above high normal MEDGEN (St [Mass/volume] by Juan C's Electrophoresis in Medical, Urine collected PC) for unspecified duration M-Kevyn 3.2 g/dL Above high normal [facility] ([facility], [facility]) Globulin, Total 5.1 g/dL Above high normal [facility] ([facility], [facility]) A/G Ratio 0.8 Normal (applies MEDGEN (St to non-numeric Juan C's results) Medical, PC) Please note: Normal (applies MEDGEN (St to non-numeric Juan C's results) Medical, PC) PDF . Normal (applies MEDGEN (St to non-numeric Juan C's results) Medical, PC) ID Date Data Source [id number] 03/22/2020 12:00:00 AM EDT MED[facility] ([facility] [...] results) Medical, PC) ID Date Data Source [id number] 03/22/2020 12:00:00 AM EDT MEDGEN ([facility] [...] results) Medical, PC) ID Date Data Source [id number] 03/22/2020 12:00:00 AM EDT MEDGEN ([facility] [...] low normal MEDGE N (St Am mL/min/1 [facility]'s [address], ) BUN/Creatinine 10 Normal (applies MEDGEN (S t Ratio to non-numeric Juan C's results) Medical, ) eGFR If Africn Am 10 Below low normal MEDGE N (St mL/min/1 Juan C's 73 [facility], ) Sodium 134 Normal (applies MEDGEN (St [...] Serum or Plasma ID Date Data Source [id number] 03/22/2020 12:00:00 AM EDT MEDGEN ([facility], ) Name Value Range Interpretation Description Data Sup porting Code Source(s) Document(s ) Leukocytes 11.7 Above high normal MEDGEN (St [#/volume] in x10E3/uL Juan C's Blood by [facility], ) Automated count Erythrocytes 2.47 Below lower panic MEDGEN (S t [#/volume] in x10E6/uL limits Juan C's Blood by [facility], ) Automated count Hemoglobin 8.2 g/dL Below low normal MEDGEN (St [Mass/volume] in Juan C's Blood [facility], ) Hematocrit 23.3 % Below low normal MEDGEN (St [Volume Juan C's Fraction] of [facility], ) Blood by Automated count MCV 94 fL Normal (applies MEDGEN (St to non-numeric Juan C's results) [facility], ) MCH 33.2 pg Above high normal MEDGEN ([facility], ) MCHC 35.2 Normal (applies MEDGEN (St g/dL to non-numeric Juan C's results) [facility], ) RDW 19.0 % Above high normal MEDGEN ([facility], ) Platelets 198 Normal (applies MEDGEN (St [#/area] in x10E3/uL to non-numeric Juan C's Blood by results) [facility]) Microscopy high power field Neutrophils [#] 54 % Normal (applies MEDGEN ( St in Body fluid by to non-numeric Juan C's Manual count results) [facility], ) Lymphs 13 % Normal (applies MEDGEN (St to non-numeric Juan C's results) [facility]) Monocytes 16 % Normal (applies MEDGEN (St [#/volume] in to non-numeric Juan C's Cord blood results) [facility], ) Eos 11 % Normal (applies MEDGEN (St to non-numeric Juan C's results) [facility]) Neutrophils 6.4 Normal (applies MEDGEN (St (Absolute) x10E3/uL to non-numeric Juan C's results) [facility], ) Basos 1 % Normal (applies MEDGEN (St to non-numeric Juan C's results) [facility]) Lymphs 1.5 Normal (applies MEDGEN (St (Absolute) x10E3/uL to non-numeric Juan C's results) Medical, ) Monocytes(Absolu 1.9 Above high normal MEDGE N (St te) x10E3/uL [facility] Medical, PC) Eos (Absolute) 1.3 Above high normal MEDGEN (St x10E3/uL [facility], PC) Baso (Absolute) 0.1 Normal (applies MEDGEN ( St x10E3/uL to non-numeric Juan C's results) Medical, PC) Immature 5 % Normal (applies MEDGEN (St Granulocytes to non-numeric Juan C's results) Medical, ) Immature Grans 0.6 Above high normal MEDGEN (St (Abs) x10E3/uL [facility], ) NRBC 4 % Above high normal [facility] ([facility], ) ID Date Data Source [id number] 03/22/2020 12:00:00 AM EDT [facility] ([facility], ) Name Value Range Interpretation Code Description Data Lisa rce(s) Supporting Document(s ) ID Date Data Source [id number] 03/22/2020 12:00:00 AM EDT [facility] ([facility], ) Name Value Range Interpretation Code Description Data Supporting Source(s) Document(s ) PTH, Intact 10 pg/mL Below low normal [facility] ([facility]) ID Date Data Source [id number] 03/22/2020 12:00:00 AM EDT [facility] ([facility], ) Name Value Range Interpretation Code Description Data Supporting Source(s) Document(s ) Ferritin, 349 ng/mL Normal (applies to MEDGEN (St Serum non-numeric Juan C's results) Medical, ) ID Date Data Source [id number] 03/22/2020 12:00:00 AM EDT [facility] ([facility], ) Name Value Range Interpretation Description Data Sup porting Code Source(s) Document(s ) Deprecated 5.4 mg/dL Above high normal MEDGEN (St Phosphorus Juan C's [Mass/time] in Medical, PC) 24 hour Urine ID Date Data Source [id number] 03/22/2020 12:00:00 AM EDT [facility] ([facility], ) Name Value Range Interpretation Code Description Data Lisa rce(s) Supporting Document(s ) ID Date Data Source [id number] 03/22/2020 12:00:00 AM EDT [facility] ([facility]) Name Value Range Interpretation Description Data Sup porting Code Source(s) Document(s ) Vitamin D, 30.6 Normal (applies to MEDGEN (St 25-Hydroxy ng/mL non-numeric Juan C's results) Medical, ) ID Date Data Source [id number] 03/22/2020 12:00:00 AM EDT [facility] ([facility], ) Name Value Range Interpretation Description Data Sup porting Code Source(s) Document(s ) Free Lambda 110.44 Above high normal MEDGEN (St Lt mg/L Juan C's Chains,Ur Medical, PC) Free Ecorse 141.85 Above high normal MEDGEN (St Lt mg/L Juan C's Chains,Ur Medical, PC) Ecorse/Lambd 1.28 Normal (applies to MEDGEN (S t a Ratio,U non-numeric Juan C's results) [facility], ) ID Date Data Source [id number] 03/22/2020 12:00:00 AM EDT [facility] ([facility], ) Name Value Range Interpretation Description Data Sup porting Code Source(s) Document(s ) Free Ecorse 41.1 mg/L Above high normal MEDGEN (St Lt Chains,S Juan C's [facility], PC) Free Lambda 176.0 mg/L Above high normal MEDGEN (S t Lt Chains,S Juan C's [facility], PC) Ecorse/Lambd 0.23 Below low normal MEDGEN (St a Ratio,S [facility], ) ID Date Data Source [id number] 03/22/2020 12:00:00 AM EDT MEDGEN ([facility], ) Name Value Range Interpretation Code Description Data Supporting Source(s) Document(s ) Creatinine 94.7 mg/dL Normal (applies to MEDGEN (S t , Urine non-numeric Juan C's results) [facility], ) Protein/Cr 1072 mg/g Above high normal MEDGEN (St eat Ratio creat Juan C's [facility], ) ID Date Data Source [id number] 03/22/2020 12:00:00 AM EDT [facility] ([facility], ) Name Value Range Interpretation Description Data Sup porting Code Source(s) Document(s ) Immunoglobulin G, 3867 Above high normal MEDG EN (St Qn, Serum mg/dL Juan C's [facility]) Immunoglobulin M, 8 mg/dL Below low normal MEDGE N (St Qn, Serum Juan C's [facility]) Immunoglobulin A, 17 mg/dL Below low normal MEDGE N (St Qn, Serum Juan C's [facility]) ID Date Data Source [id number] 03/22/2020 12:00:00 AM EDT MEDGEN ([facility]) Name Value Range Interpretation Description Data Sup porting Code Source(s) Document(s ) Iron 248 ug/dL Below low normal MEDGEN (St Bind.Cap.(TIBC Juan C's ) [facility]) UIBC 172 ug/dL Normal (applies to MEDGEN (St non-numeric Juan C's results) [facility]) Iron 76 ug/dL Normal (applies to MEDGEN (St [Mass/volume] non-numeric Juan C's in Serum or results) [facility]) Plasma Iron 31 % Normal (applies to MEDGEN (St saturation non-numeric Juan C's [Mass results) [facility]) Fraction] in Serum or Plasma ID Date Data Source [id number] 03/22/2020 12:00:00 AM EDT MEDGEN ([facility], ) Name Value Range Interpretation Code Description Data Supporting Source(s) Document(s ) Protein,To 101.5 Normal (applies to MEDGEN (St ruth,Urine mg/dL non-numeric Juan C's results) [facility]) Albumin, U 36.2 % Normal (applies to MEDGEN (St non-numeric Juan C's results) [facility]) Alpha-1-Gl 5.7 % Normal (applies to MEDGEN (St obulin, U non-numeric Juan C's results) [facility]) Beta 29.7 % Normal (applies to MEDGEN (St Globulin, non-numeric Juan C's U results) [facility]) Alpha-2-Gl 12.8 % Normal (applies to MEDGEN (St obulin, U non-numeric Juan C's results) [facility]) Gamma 15.6 % Normal (applies to MEDGEN (St Globulin, non-numeric Juan C's U results) [facility]) M-Kevyn, % Comment: Normal (applies to MEDGEN (St non-numeric Juan C's results) [facility] ) PDF . Normal (applies to MEDGEN (St non-numeric Juan C's results) Medical, ) ID Date Data Source [id number] 03/22/2020 12:00:00 AM EDT MEDGEN ([facility], ) Name Value Range Interpretation Description Data Sup porting Code Source(s) Document(s ) Microalbumin 4.0 g/dL Normal (applies MEDGEN (St [Mass/time] in to non-numeric Juan C's Urine collected results) Medical, for unspecified PC) duration Vnibe-3-Sqdkbfzi 0.2 g/dL Normal (applies MEDGEN (St to non-numeric Juan C's results) Medical, PC) Beta globulin 0.7 g/dL Normal (applies MEDGEN (St [Mass/volume] in to non-numeric Juan C's Urine by results) Medical, Electrophoresis PC) Bxdeu-3-Pltllfvg 0.8 g/dL Normal (applies MEDGEN (St to non-numeric Juan C's results) Medical, PC) Gamma globulin 3.5 g/dL Above high normal MEDGEN (St [Mass/volume] by Juan C's Electrophoresis in Medical, Urine collected PC) for unspecified duration M-Kevyn 3.2 g/dL Above high normal MEDGEN ([facility], ) Globulin, Total 5.1 g/dL Above high normal MEDGEN ([facility], ) A/G Ratio 0.8 Normal (applies MEDGEN (St to non-numeric Juan C's results) Medical, ) PDF . Normal (applies MEDGEN (St to non-numeric Juan C's results) Medical, ) ID Date Data Source [id number] 03/22/2020 12:00:00 AM EDT [facility], ) Name Value Range Interpretation Description [...] results) Medical, PC) ID Date Data Source [id number] 03/22/2020 12:00:00 AM EDT MEDGEN ([facility] [...] by Light microscopy ID Date Data Source [id number] 03/22/2020 12:00:00 AM EDT MEDGEN ([facility], ) Name Value Range Interpretation Description Data Sup porting Code Source(s) Document(s ) Glucose 88 mg/dL Normal (applies MEDGEN (St [Mass/volume] in to non-numeric Juan C's Urine collected for results) Medical, unspecified ) duration Urea nitrogen 61 mg/dL Above high MEDGEN (St [Mass/volume] in normal Juan C's Serum or Plasma [facility], ) Creatinine 5.97 Above high MEDGEN (St [Interpretation] in mg/dL normal Juan C's Urine [facility], ) eGFR If Africn Am 10 Below low normal MEDGE N (St mL/min/[address], ) eGFR If NonAfricn 9 Below low normal MEDGE N (St Am mL/min/[address], ) BUN/Creatinine 10 Normal (applies MEDGEN (S t Ratio to non-numeric Juan C's results) Medical, ) Sodium 134 Normal (applies MEDGEN (St [Moles/volume] in mmol/L to non-numeric Juan C's Serum or Plasma results) [facility], ) Potassium 4.1 Normal (applies MEDGEN (St [Mass/volume] in mmol/L to non-numeric Juan C's Blood results) [facility], ) Chloride 98 Normal (applies MEDGEN (St [Moles/volume] in mmol/L to non-numeric Juan C's Serum or Plasma results) [facility], ) Carbon dioxide, 20 Normal (applies MEDGEN [...] in normal Juan C's Serum or Plasma [facility], ) Globulin, Total 5.2 g/dL Above high MEDGEN (St normal Juan C's [facility], ) A/G Ratio 0.8 Below low normal MEDGEN ([facility], ) Bilirubin.total 0.4 Normal (applies MEDGEN ( St [Mass/volume] in mg/dL to non-numeric Juan C's Serum or Plasma results) [facility]) Aspartate 43 IU/L Above high MEDGEN (St [...] Serum or Plasma ID Date Data Source [id number] 03/22/2020 12:00:00 AM EDT MEDGEN ([facility], ) Name Value Range Interpretation Description Data Sup porting Code Source(s) Document(s ) Leukocytes 11.7 Above high normal MEDGEN (St [#/volume] in x10E3/uL Juan C's Blood by [facility]) Automated count Erythrocytes 2.47 Below lower panic MEDGEN (S t [#/volume] in x10E6/uL limits Juan C's Blood by [facility], ) Automated count Hematocrit 23.3 % Below low normal MEDGEN (St [Volume Juan C's Fraction] of [facility]) Blood by Automated count Hemoglobin 8.2 g/dL Below low normal MEDGEN (St [Mass/volume] in Juan C's Blood [facility], ) MCV 94 fL Normal (applies MEDGEN (St to non-numeric Juan C's results) [facility]) MCH 33.2 pg Above high normal MEDGEN ([facility], ) MCHC 35.2 Normal (applies MEDGEN (St g/dL to non-numeric Juan C's results) [facility]) Platelets 198 Normal (applies MEDGEN (St [#/area] in x10E3/uL to non-numeric Juan C's Blood by results) [facility]) Microscopy high power field RDW 19.0 % Above high normal MEDGEN ([facility], ) Neutrophils [#] 54 % Normal (applies MEDGEN ( St in Body fluid by to non-numeric Juan C's Manual count results) [facility]) Lymphs 13 % Normal (applies MEDGEN (St to non-numeric Juan C's results) [facility], ) Monocytes 16 % Normal (applies MEDGEN (St [#/volume] in to non-numeric Juan C's Cord blood results) [facility], ) Basos 1 % Normal (applies MEDGEN (St to non-numeric Juan C's results) [facility], ) Eos 11 % Normal (applies MEDGEN (St to non-numeric Juan C's results) [facility], ) Neutrophils 6.4 Normal (applies MEDGEN (St (Absolute) x10E3/uL to non-numeric Juan C's results) [facility], ) Lymphs 1.5 Normal (applies MEDGEN (St (Absolute) x10E3/uL to non-numeric Juan C's results) [facility], ) Monocytes(Absolu 1.9 Above high normal MEDGE N (St te) x10E3/uL [facility]'s [facility], ) Eos (Absolute) 1.3 Above high normal MEDGEN (St x10E3/uL [facility], ) Baso (Absolute) 0.1 Normal (applies MEDGEN ( St x10E3/uL to non-numeric Juan C's results) [facility], ) Immature 5 % Normal (applies MEDGEN (St Granulocytes to non-numeric Juan C's results) [facility], ) NRBC 4 % Above high normal [facility] ([facility], ) Immature Grans 0.6 Above high normal MEDGEN (St (Abs) x10E3/uL [facility], ) ID Date Data Source [id number] 03/22/2020 12:00:00 AM EDT MEDGEN ([facility], ) Name Value Range Interpretation Description Data Sup porting Code Source(s) Document(s ) Wmydk-2-Bayyajzh 0.2 g/dL Normal (applies MEDGEN (St to non-numeric Juan C's results) [facility], ) Microalbumin 4.0 g/dL Normal (applies MEDGEN (St [Mass/time] in to non-numeric Juan C's Urine collected results) [facility], for unspecified PC) duration Pkzxt-9-Xycbxzbx 0.8 g/dL Normal (applies MEDGEN (St to non-numeric Juan C's results) [facility], ) Gamma globulin 3.5 g/dL Above high normal MEDGEN (St [Mass/volume] by Juan C's Electrophoresis in Medical, Urine collected PC) for unspecified duration Beta globulin 0.7 g/dL Normal (applies MEDGEN (St [Mass/volume] in to non-numeric Juan C's Urine by results) Medical, Electrophoresis PC) M-Kevyn 3.2 g/dL Above high normal [facility] ([facility], PC) Globulin, Total 5.1 g/dL Above high normal MEDGEN ([facility], ) A/G Ratio 0.8 Normal (applies MEDGEN (St to non-numeric Juan C's results) Medical, PC) PDF . Normal (applies MEDGEN (St to non-numeric Juan C's results) Medical, ) ID Date Data Source [id number] 03/22/2020 12:00:00 AM EDT MEDGEN ([facility], ) Name Value Range Interpretation Description [...] results) Medical, PC) ID Date Data Source [id number] 03/22/2020 12:00:00 AM EDT [facility] ([facility], ) Name Value Range Interpretation Description [...] results) Medical, PC) ID Date Data Source [id number] 03/22/2020 12:00:00 AM EDT MEDGEN ([facility] [...] in normal Juan C's Serum or Plasma [facility], ) eGFR If NonAfricn 9 Below low [...] 5.2 g/dL Above high MEDGEN (St normal [facility], ) A/G Ratio 0.8 Below low normal MEDGEN ([facility], ) Bilirubin.total 0.4 Normal (applies MEDGEN ( [...] Serum or Plasma ID Date Data Source [id number] 03/22/2020 12:00:00 AM EDT MEDGEN ([facility], ) Name Value Range Interpretation Description Data Sup porting Code Source(s) Document(s ) Leukocytes 11.7 Above high normal MEDGEN (St [#/volume] in x10E3/uL Juan C's Blood by [facility], ) Automated count Erythrocytes 2.47 Below lower panic MEDGEN (S t [#/volume] in x10E6/uL limits Juan C's Blood by [facility], ) Automated count Hemoglobin 8.2 g/dL Below low normal MEDGEN (St [Mass/volume] in Juan C's Blood [facility], ) MCV 94 fL Normal (applies MEDGEN (St to non-numeric Juan C's results) [facility]) Hematocrit 23.3 % Below low normal MEDGEN (St [Volume Juan C's Fraction] of [facility], ) Blood by Automated count MCH 33.2 pg Above high normal [facility] ([facility], ) MCHC 35.2 Normal (applies MEDGEN (St g/dL to non-numeric Juan C's results) [facility]) RDW 19.0 % Above high normal [facility] ([facility], ) Platelets 198 Normal (applies MEDGEN (St [#/area] in x10E3/uL to non-numeric Juan C's Blood by results) [facility]) Microscopy high power field Neutrophils [#] 54 % Normal (applies MEDGEN ( St in Body fluid by to non-numeric Juan C's Manual count results) [facility], ) Lymphs 13 % Normal (applies MEDGEN (St to non-numeric Juan C's results) [facility]) Monocytes 16 % Normal (applies MEDGEN (St [#/volume] in to non-numeric Juan C's Cord blood results) [facility]) Eos 11 % Normal (applies MEDGEN (St to non-numeric Juan C's results) [facility]) Neutrophils 6.4 Normal (applies MEDGEN (St (Absolute) x10E3/uL to non-numeric Juan C's results) [facility], ) Basos 1 % Normal (applies MEDGEN (St to non-numeric Juan C's results) [facility]) Lymphs 1.5 Normal (applies MEDGEN (St (Absolute) x10E3/uL to non-numeric Juan C's results) [facility]) Monocytes(Absolu 1.9 Above high normal MEDGE N (St te) x10E3/uL [facility]) Eos (Absolute) 1.3 Above high normal MEDGEN (St x10E3/uL [facility], ) Immature 5 % Normal (applies MEDGEN (St Granulocytes to non-numeric Juan C's results) [facility], ) Baso (Absolute) 0.1 Normal (applies MEDGEN ( St x10E3/uL to non-numeric Juan C's results) [facility], ) Immature Grans 0.6 Above high normal MEDGEN (St (Abs) x10E3/uL Juan C's [facility], ) NRBC 4 % Above high normal [facility] ([facility], ) ID Date Data Source [id number] 03/22/2020 12:00:00 AM EDT [facility] ([facility], ) Name Value Range Interpretation Code Description Data Lisa rce(s) Supporting Document(s ) ID Date Data Source [id number] 03/22/2020 12:00:00 AM EDT MEDGEN ([facility], ) Name Value Range Interpretation Code Description Data Supporting Source(s) Document(s ) PTH, Intact 10 pg/mL Below low normal [facility] ([facility], ) ID Date Data Source [id number] 03/22/2020 12:00:00 AM EDT [facility] ([facility], ) Name Value Range Interpretation Code Description Data Supporting Source(s) Document(s ) Ferritin, 349 ng/mL Normal (applies to MEDGEN (St Serum non-numeric Juan C's results) [facility], ) ID Date Data Source [id number] 03/22/2020 12:00:00 AM EDT [facility]GEN ([facility], ) Name Value Range Interpretation Description Data Sup porting Code Source(s) Document(s ) Deprecated 5.4 mg/dL Above high normal MEDGEN (St Phosphorus Juan C's [Mass/time] in [facility], ) 24 hour Urine ID Date Data Source [id number] 03/22/2020 12:00:00 AM EDT [facility] ([facility], ) Name Value Range Interpretation Code Description Data Lisa rce(s) Supporting Document(s ) RAGINI Normal (applies to MEDGEN (St Interpreta non-numeric results) Juan C's M edical, tion:U PC) ID Date Data Source [id number] 03/22/2020 12:00:00 AM EDT MEDGEN ([facility], ) Name Value Range Interpretation Description Data Sup porting Code Source(s) Document(s ) Vitamin D, 30.6 Normal (applies to MEDGEN (St 25-Hydroxy ng/mL non-numeric Juan C's results) [facility], ) ID Date Data Source [id number] 03/22/2020 12:00:00 AM EDT MEDGEN ([facility], ) Name Value Range Interpretation Description Data Sup porting Code Source(s) Document(s ) Free Ecorse 141.85 Above high normal MEDGEN (St Lt mg/L Juan C's Chains,Ur [facility], ) Free Lambda 110.44 Above high normal MEDGEN (St Lt mg/L Juan C's Chains,Ur [facility], ) Ecorse/Lambd 1.28 Normal (applies to MEDGEN (S t a Ratio,U non-numeric Juan C's results) [facility]) ID Date Data Source [id number] 03/22/2020 12:00:00 AM EDT MEDGEN ([facility], ) Name Value Range Interpretation Description Data Sup porting Code Source(s) Document(s ) Free Ecorse 41.1 mg/L Above high normal MEDGEN (St Lt Chains,S [facility]'s [facility], ) Ecorse/Lambd 0.23 Below low normal MEDGEN (St a Ratio,S [facility], ) Free Lambda 176.0 mg/L Above high normal MEDGEN (S t Lt Chains,S [facility], ) ID Date Data Source [id number] 03/22/2020 12:00:00 AM EDT MEDGEN ([facility], ) Name Value Range Interpretation Code Description Data Supporting Source(s) Document(s ) Creatinine 94.7 mg/dL Normal (applies to MEDGEN (S t , Urine non-numeric Juan C's results) [facility]) Protein/Cr 1072 mg/g Above high normal MEDGEN (St eat Ratio creat [facility], ) ID Date Data Source [id number] 03/22/2020 12:00:00 AM EDT MEDGEN ([facility], ) Name Value Range Interpretation Description Data Sup porting Code Source(s) Document(s ) Immunofixation Normal (applies MEDGEN (S t Result, Serum to non-numeric Juan C's results) [facility], ) Immunoglobulin G, 3867 Above high normal MEDG EN (St Qn, Serum mg/dL Juan C's [facility]) Immunoglobulin A, 17 mg/dL Below low normal MEDGE N (St Qn, Serum Juan C's [facility]) Immunoglobulin M, 8 mg/dL Below low normal MEDGE N (St Qn, Serum Juan C's [facility]) ID Date Data Source [id number] 03/22/2020 12:00:00 AM EDT [facility] ([facility], ) Name Value Range Interpretation Description Data Sup porting Code Source(s) Document(s ) Iron 248 ug/dL Below low normal MEDGEN (St Bind.Cap.(TIBC Juan C's ) [facility]) UIBC 172 ug/dL Normal (applies to MEDGEN (St non-numeric Juan C's results) [facility]) Iron 76 ug/dL Normal (applies to MEDGEN (St [Mass/volume] non-numeric Juan C's in Serum or results) [facility]) Plasma Iron 31 % Normal (applies to MEDGEN (St saturation non-numeric Juan C's [Mass results) [facility]) Fraction] in Serum or Plasma ID Date Data Source [id number] 03/22/2020 12:00:00 AM EDT MEDGEN ([facility], ) Name Value Range Interpretation Description Data Sup porting Code Source(s) Document(s ) Protein,Tot 101.5 Normal (applies to MEDGEN (S t al,Urine mg/dL non-numeric Juan C's results) [facility]) Albumin, U 36.2 % Normal (applies to MEDGEN (St non-numeric Juan C's results) [facility]) Alpha-1-Nadine 5.7 % Normal (applies to MEDGEN (S t bulin, U non-numeric Juan C's results) [facility]) Alpha-2-Nadine 12.8 % Normal (applies to MEDGEN (S t bulin, U non-numeric Juan C's results) [facility]) Gamma 15.6 % Normal (applies to MEDGEN (St Globulin, U non-numeric Juan C's results) [facility]) Beta 29.7 % Normal (applies to MEDGEN (St Globulin, U non-numeric Juan C's results) [facility]) M-Kevyn, % Comment: Normal (applies to MEDGEN (St non-numeric Juan C's results) [facility], [facility]) Please Normal (applies to MEDGEN (St note: non-numeric Juan C's results) Medical, PC) PDF . Normal (applies to MEDGEN (St non-numeric Juan C's results) Medical, PC) ID Date Data Source [id number] 03/22/2020 12:00:00 AM EDT [facility] ([facility], ) Name Value Range Interpretation Description Data Sup porting Code Source(s) Document(s ) Microalbumin 4.0 g/dL Normal (applies MEDGEN (St [Mass/time] in to non-numeric Juan C's Urine collected results) Medical, for unspecified PC) duration Nxfmq-9-Kbjyewzl 0.2 g/dL Normal (applies MEDGEN (St to non-numeric Juan C's results) Medical, PC) Mlnyg-0-Gtutklpf 0.8 g/dL Normal (applies MEDGEN (St to [...] results) Medical, PC) ID Date Data Source [id number] 03/22/2020 12:00:00 AM EDT MEDGEN ([facility] [...] results) Medical, ) ID Date Data Source [id number] 03/22/2020 12:00:00 AM EDT MEDGEN (St Julienne [...] by Light microscopy ID Date Data Source [id number] 03/22/2020 12:00:00 AM EDT MEDGEN (St Julienne [...] low normal MEDGE N (St Am mL/min/1 [facility] [address], ) eGFR If Africn Am 10 Below low normal MEDGE N (St mL/min/1 [facility]'s .73 [facility], ) BUN/Creatinine 10 Normal (applies MEDGEN (S [...] 5.2 g/dL Above high MEDGEN (St normal [facility], ) A/G Ratio 0.8 Below low normal MEDGEN ([facility], ) Bilirubin.total 0.4 Normal (applies MEDGEN ( St [Mass/volume] in mg/dL to non-numeric Juan C's Serum or Plasma results) [facility], ) Alkaline 63 IU/L Normal (applies MEDGEN (St phosphatase to non-numeric Juan C's [Enzymatic results) Medical, activity/volume] in ) Serum, Plasma or Blood Aspartate 43 IU/L Above high MEDGEN (St aminotransferase normal Juan C's [Enzymatic Medical, activity/volume] in ) Serum or Plasma Alanine 43 IU/L Normal (applies MEDGEN (St aminotransferase to non-numeric Juan C's [Enzymatic results) [facility], activity/volume] in ) Serum or Plasma ID Date Data Source [id number] 03/22/2020 12:00:00 AM EDT MEDGEN ([facility], ) Name Value Range Interpretation Description Data Sup porting Code Source(s) Document(s ) Leukocytes 11.7 Above high normal MEDGEN (St [#/volume] in x10E3/uL Juan C's Blood by [facility], ) Automated count Erythrocytes 2.47 Below lower panic MEDGEN (S t [#/volume] in x10E6/uL limits Juan C's Blood by [facility], ) Automated count Hematocrit 23.3 % Below low normal MEDGEN (St [Volume Juan C's Fraction] of [facility], ) Blood by Automated count Hemoglobin 8.2 g/dL Below low normal MEDGEN (St [Mass/volume] in Juan C's Blood [facility], ) MCV 94 fL Normal (applies MEDGEN (St to non-numeric Juan C's results) [facility]) MCH 33.2 pg Above high normal MEDGEN ([facility], ) MCHC 35.2 Normal (applies MEDGEN (St g/dL to non-numeric Juan C's results) [facility]) RDW 19.0 % Above high normal MEDGEN ([facility], ) Platelets 198 Normal (applies MEDGEN (St [#/area] in x10E3/uL to non-numeric Juan C's Blood by results) [facility], ) Microscopy high power field Neutrophils [#] 54 % Normal (applies MEDGEN ( St in Body fluid by to non-numeric Juan C's Manual count results) [facility], ) Lymphs 13 % Normal (applies MEDGEN (St to non-numeric Juan C's results) [facility], ) Monocytes 16 % Normal (applies MEDGEN (St [#/volume] in to non-numeric Juan C's Cord blood results) [facility], ) Eos 11 % Normal (applies MEDGEN (St to non-numeric Juan C's results) [facility], ) Basos 1 % Normal (applies MEDGEN (St to non-numeric Juan C's results) [facility], ) Neutrophils 6.4 Normal (applies MEDGEN (St (Absolute) x10E3/uL to non-numeric Juan C's results) [facility], ) Lymphs 1.5 Normal (applies MEDGEN (St (Absolute) x10E3/uL to non-numeric Juan C's results) [facility], ) Monocytes(Absolu 1.9 Above high normal MEDGE N (St te) x10E3/uL Juan C's [facility], ) Baso (Absolute) 0.1 Normal (applies MEDGEN ( St x10E3/uL to non-numeric Juan C's results) [facility], ) Eos (Absolute) 1.3 Above high normal MEDGEN (St x10E3/uL Juan C's [facility], ) Immature 5 % Normal (applies MEDGEN (St Granulocytes to non-numeric Juan C's results) [facility], ) Immature Grans 0.6 Above high normal MEDGEN (St (Abs) x10E3/uL Juan C's [facility], ) NRBC 4 % Above high normal [facility] ([facility], ) ID Date Data Source [id number] 03/22/2020 12:00:00 AM EDT MEDGEN ([facility], ) Name Value Range Interpretation Code Description Data Lisa rce(s) Supporting Document(s ) ID Date Data Source [id number] 03/22/2020 12:00:00 AM EDT MEDGEN ([facility], ) Name Value Range Interpretation Code Description Data Supporting Source(s) Document(s ) PTH, Intact 10 pg/mL Below low normal [facility] ([facility], ) ID Date Data Source [id number] 03/22/2020 12:00:00 AM EDT MEDGEN ([facility], ) Name Value Range Interpretation Code Description Data Supporting Source(s) Document(s ) Ferritin, 349 ng/mL Normal (applies to MEDGEN (St Serum non-numeric Juan C's results) [facility], ) ID Date Data Source [id number] 03/22/2020 12:00:00 AM EDT MEDGEN ([facility], ) Name Value Range Interpretation Description Data Sup porting Code Source(s) Document(s ) Deprecated 5.4 mg/dL Above high normal MEDGEN (St Phosphorus Juan C's [Mass/time] in [facility], ) 24 hour Urine ID Date Data Source [id number] 03/22/2020 12:00:00 AM EDT MEDGEN ([facility], ) Name Value Range Interpretation Code Description Data Lisa rce(s) Supporting Document(s ) RAGINI Normal (applies to MEDGEN (St Interpreta non-numeric results) Juan C's M edical, tion:U ) ID Date Data Source [id number] 03/22/2020 12:00:00 AM EDT MEDGEN ([facility], ) Name Value Range Interpretation Description Data Sup porting Code Source(s) Document(s ) Vitamin D, 30.6 Normal (applies to MEDGEN (St 25-Hydroxy ng/mL non-numeric Juan C's results) [facility], ) ID Date Data Source [id number] 03/22/2020 12:00:00 AM EDT MEDGEN ([facility], ) Name Value Range Interpretation Description Data Sup porting Code Source(s) Document(s ) Free Ecorse 141.85 Above high normal MEDGEN (St Lt mg/L Juan C's Chains,Ur [facility], ) Free Lambda 110.44 Above high normal MEDGEN (St Lt mg/L Juan C's Chains,Ur [facility], ) Ecorse/Lambd 1.28 Normal (applies to MEDGEN (S t a Ratio,U non-numeric Juan C's results) [facility], ) ID Date Data Source [id number] 03/22/2020 12:00:00 AM EDT MEDGEN ([facility], ) Name Value Range Interpretation Description Data Sup porting Code Source(s) Document(s ) Free Ecorse 41.1 mg/L Above high normal MEDGEN (St Lt Chains,S [facility], ) Free Lambda 176.0 mg/L Above high normal MEDGEN (S t Lt Chains,S [facility]) Ecorse/Lambd 0.23 Below low normal MEDGEN (St a Ratio,S [facility]) ID Date Data Source [id number] 03/22/2020 12:00:00 AM EDT MEDGEN ([facility], ) Name Value Range Interpretation Code Description Data Supporting Source(s) Document(s ) Creatinine 94.7 mg/dL Normal (applies to MEDGEN (S t , Urine non-numeric Juan C's results) [facility]) Protein/Cr 1072 mg/g Above high normal MEDGEN (St eat Ratio creat [facility]) ID Date Data Source [id number] 03/22/2020 12:00:00 AM EDT MEDGEN ([facility]) Name Value Range Interpretation Description Data Sup porting Code Source(s) Document(s ) Immunofixation Normal (applies MEDGEN (S t Result, Serum to non-numeric Juan C's results) [facility]) Immunoglobulin G, 3867 Above high normal MEDG EN (St Qn, Serum mg/dL [facility]) Immunoglobulin A, 17 mg/dL Below low normal MEDGE N (St Qn, Serum [facility]) Immunoglobulin M, 8 mg/dL Below low normal MEDGE N (St Qn, Serum [facility]) ID Date Data Source [id number] 03/22/2020 12:00:00 AM EDT MEDGEN ([facility], ) Name Value Range Interpretation Description Data Sup porting Code Source(s) Document(s ) Iron 248 ug/dL Below low normal MEDGEN (St Bind.Cap.(TIBC Juan C's ) [facility]) UIBC 172 ug/dL Normal (applies to MEDGEN (St non-numeric Juan C's results) [facility]) Iron 31 % Normal (applies to MEDGEN (St saturation non-numeric Juan C's [Mass results) [facility]) Fraction] in Serum or Plasma Iron 76 ug/dL Normal (applies to MEDGEN (St [Mass/volume] non-numeric Juan C's in Serum or results) [facility], ) Plasma ID Date Data Source [id number] 03/22/2020 12:00:00 AM EDT MEDGEN ([facility] [...] results) Medical, PC) ID Date Data Source [id number] 03/22/2020 12:00:00 AM EDT [facility]GEN ([facility], [facility]) Name Value Range Interpretation Description Data Sup porting Code Source(s) Document(s ) Microalbumin 4.0 g/dL Normal (applies MEDGEN (St [Mass/time] in to non-numeric Juan C's Urine collected results) Medical, for unspecified PC) duration Ukfkc-4-Rmiodfhp 0.2 g/dL Normal (applies MEDGEN (St to non-numeric Juan C's results) Medical, PC) Beta globulin 0.7 g/dL Normal (applies MEDGEN (St [Mass/volume] in to non-numeric Juan C's Urine by results) Medical, Electrophoresis PC) Jwzcs-1-Ejndbmgp 0.8 g/dL Normal (applies MEDGEN (St to non-numeric Juan C's results) Medical, PC) Gamma globulin 3.5 g/dL Above high normal MEDGEN (St [Mass/volume] by Juan C's Electrophoresis in Medical, Urine collected PC) for unspecified duration M-Kevyn 3.2 g/dL Above high normal MEDGEN ([facility], [facility]) Globulin, Total 5.1 g/dL Above high normal [facility] ([facility], [facility]) A/G Ratio 0.8 Normal (applies MEDGEN (St to non-numeric Juan C's results) Medical, PC) Please note: Normal (applies MEDGEN (St to non-numeric Juan C's results) Medical, ) PDF . Normal (applies MEDGEN (St to non-numeric Juan C's results) Medical, ) ID Date Data Source [id number] 03/22/2020 12:00:00 AM EDT MEDGEN ([facility], ) Name Value Range Interpretation Description [...] to non-numeric Juan C's Urine collected results) [facility], for unspecified PC) duration Ketones Negative Normal (applies MEDGEN (St [Presence] in to non-numeric Juan C's Blood by Tablet results) Medical, ) Bilirubin Negative Normal (applies MEDGEN (St [Presence] in to non-numeric Juan C's Peritoneal fluid results) Medical, ) Occult Blood Abnormal MEDGEN [...] results) Medical, PC) ID Date Data Source [id number] 03/22/2020 12:00:00 AM EDT MEDGEN ([facility], ) Name Value Range Interpretation Description [...] by Light microscopy ID Date Data Source [id number] 03/22/2020 12:00:00 AM EDT MEDGEN ([facility], ) Name Value Range Interpretation Description [...] 5.2 g/dL Above high MEDGEN (St normal [facility], ) A/G Ratio 0.8 Below low normal [facility] Bilirubin.total 0.4 Normal (applies MEDGEN [...] Serum or Plasma ID Date Data Source [id number] 03/22/2020 12:00:00 AM EDT MEDGEN ([facility], ) Name Value Range Interpretation Description Data Sup porting Code Source(s) Document(s ) Leukocytes 11.7 Above high normal MEDGEN (St [#/volume] in x10E3/uL Juan C's Blood by [facility], ) Automated count Erythrocytes 2.47 Below lower panic MEDGEN (S t [#/volume] in x10E6/uL limits Juan C's Blood by [facility], ) Automated count Hemoglobin 8.2 g/dL Below low normal MEDGEN (St [Mass/volume] in Juan C's Blood [facility], ) MCV 94 fL Normal (applies MEDGEN (St to non-numeric Juan C's results) [facility]) Hematocrit 23.3 % Below low normal MEDGEN (St [Volume Juan C's Fraction] of [facility], ) Blood by Automated count MCH 33.2 pg Above high normal MEDGEN ([facility], ) MCHC 35.2 Normal (applies MEDGEN (St g/dL to non-numeric Juan C's results) [facility]) RDW 19.0 % Above high normal MEDGEN ([facility], ) Platelets 198 Normal (applies MEDGEN (St [#/area] in x10E3/uL to non-numeric Juan C's Blood by results) [facility], ) Microscopy high power field Neutrophils [#] 54 % Normal (applies MEDGEN ( St in Body fluid by to non-numeric Juan C's Manual count results) [facility]) Lymphs 13 % Normal (applies MEDGEN (St to non-numeric Juan C's results) [facility]) Monocytes 16 % Normal (applies MEDGEN (St [#/volume] in to non-numeric Juan C's Cord blood results) [facility]) Eos 11 % Normal (applies MEDGEN (St to non-numeric Juan C's results) [facility]) Basos 1 % Normal (applies MEDGEN (St to non-numeric Juan C's results) [facility]) Neutrophils 6.4 Normal (applies MEDGEN (St (Absolute) x10E3/uL to non-numeric Juan C's results) [facility], ) Lymphs 1.5 Normal (applies MEDGEN (St (Absolute) x10E3/uL to non-numeric Juan C's results) [facility]) Monocytes(Absolu 1.9 Above high normal MEDGE N (St te) x10E3/uL [facility]) Eos (Absolute) 1.3 Above high normal MEDGEN (St x10E3/uL [facility], ) Baso (Absolute) 0.1 Normal (applies MEDGEN ( St x10E3/uL to non-numeric Juan C's results) [facility], ) Immature 5 % Normal (applies MEDGEN (St Granulocytes to non-numeric Juan C's results) [facility]) Immature Grans 0.6 Above high normal MEDGEN (St (Abs) x10E3/uL [facility], ) NRBC 4 % Above high normal MEDGEN ([facility], ) ID Date Data Source [id number] 03/22/2020 12:00:00 AM EDT MEDGEN ([facility], ) Name Value Range Interpretation Code Description Data Lisa rce(s) Supporting Document(s ) ID Date Data Source [id number] 03/22/2020 12:00:00 AM EDT MEDGEN ([facility], ) Name Value Range Interpretation Code Description Data Supporting Source(s) Document(s ) PTH, Intact 10 pg/mL Below low normal [facility] ([facility], ) PTH, Intact 14 pg/mL Below low normal MEDGEN ([facility], ) ID Date Data Source [id number] 03/22/2020 12:00:00 AM EDT MEDGEN ([facility], ) Name Value Range Interpretation Code Description Data Supporting Source(s) Document(s ) Ferritin, 349 ng/mL Normal (applies to MEDGEN (St Serum non-numeric Juan C's results) [facility], ) Ferritin, 329 ng/mL Normal (applies to MEDGEN (St Serum non-numeric Juan C's results) [facility], ) ID Date Data Source [id number] 03/22/2020 12:00:00 AM EDT MEDGEN ([facility], ) Name Value Range Interpretation Description Data Sup porting Code Source(s) Document(s ) Deprecated 5.4 mg/dL Above high normal MEDGEN (St Phosphorus Juan C's [Mass/time] in [facility], ) 24 hour Urine Deprecated 4.8 mg/dL Above high normal MEDGEN (St Phosphorus Juan C's [Mass/time] in [facility], ) 24 hour Urine ID Date Data Source [id number] 03/22/2020 12:00:00 AM EDT MEDGEN ([facility], ) Name Value Range Interpretation Code Description Data Lisa rce(s) Supporting Document(s ) ID Date Data Source [id number] 03/22/2020 12:00:00 AM EDT MEDGEN ([facility] [...] results) Medical, PC) ID Date Data Source [id number] 03/22/2020 12:00:00 AM EDT [facility]GEN ([facility]) Name Value Range Interpretation Description Data Sup porting Code Source(s) Document(s ) Free [place] 141.85 Above high normal MEDGEN (St Lt mg/L Juan C's Chains,Ur [facility], PC) Free Lambda 110.44 Above high normal MEDGEN (St Lt mg/L Juan C's [facility], [facility]) [place]/Lambd 1.28 Normal (applies to MEDGEN (S t a Ratio,U non-numeric Juan C's results) Medical, PC) Free [place] 476.00 Above high normal MEDGEN (St Lt mg/L Juan C's Chains[facility]Ur [facility], PC) [place]/Lambd 10.70 Above high normal MEDGEN (St a Ratio,U [facility], [facility]) Free Lambda 44.50 mg/L Above high normal MEDGEN (S t Lt Juan C's [facility], [facility]) ID Date Data Source [id number] 03/22/2020 12:00:00 AM EDT MEDGEN ([facility]) Name Value Range Interpretation Description Data Sup porting Code Source(s) Document(s ) Free [place] 41.1 mg/L Above high normal MEDGEN (St Lt Chains,S [facility], [facility]) Free Lambda 176.0 mg/L Above high normal MEDGEN (S t Lt Chains,S Juan C[facility], PC) [place]/Lambd 0.23 Below low normal MEDGEN (St a Ratio,S [facility], [facility]) Free [place] 38.9 mg/L Above high normal MEDGEN (St Lt Chains,S [facility], ) Free Lambda 133.0 mg/L Above high normal MEDGEN (S t Lt Chains,S [facility], ) [place]/Lambd 0.29 Normal (applies to MEDGEN (S t a Ratio,S non-numeric Juan C's results) [facility], ) ID Date Data Source [id number] 03/22/2020 12:00:00 AM EDT MEDGEN ([facility], ) Name Value Range Interpretation Code Description Data Supporting Source(s) Document(s ) Creatinine 94.7 mg/dL Normal (applies to MEDGEN (S t , Urine non-numeric Juan C's results) [facility], ) Protein/Cr 1072 mg/g Above high normal MEDGEN (St eat Ratio creat [facility], ) Creatinine 175.9 Normal (applies to MEDGEN (St , Urine mg/dL non-numeric Juan C's results) [facility], ) Protein/Cr 833 mg/g Above high normal MEDGEN (St eat Ratio creat [facility], ) ID Date Data Source [id number] 03/22/2020 12:00:00 AM EDT MEDGEN ([facility], ) Name Value Range Interpretation Description Data Sup porting Code Source(s) Document(s ) Immunoglobulin G, 3867 Above high normal MEDG EN (St Qn, Serum mg/dL [facility]) Immunoglobulin A, 17 mg/dL Below low normal MEDGE N (St Qn, Serum [facility], ) Immunoglobulin M, 8 mg/dL Below low normal MEDGE N (St Qn, Serum [facility], ) Immunoglobulin G, 3973 Above high normal MEDG EN (St Qn, Serum mg/dL [facility]) Immunoglobulin A, 25 mg/dL Below low normal MEDGE N (St Qn, Serum [facility], ) Immunoglobulin M, 13 mg/dL Below low normal MEDGE N (St Qn, Serum [facility], ) ID Date Data Source [id number] 03/22/2020 12:00:00 AM EDT MEDGEN (St [facility], ) Name Value Range Interpretation Description Data Sup porting Code Source(s) Document(s ) Iron 248 ug/dL Below low normal MEDGEN (St Bind.Cap.(TIBC Juan C's ) [facility], ) UIBC 172 ug/dL Normal (applies to MEDGEN (St non-numeric Juan C's results) [facility], ) Iron 76 ug/dL Normal (applies to MEDGEN (St [Mass/volume] non-numeric Juan C's in Serum or results) [facility], ) Plasma Iron 31 % Normal (applies to MEDGEN (St saturation non-numeric Juan C's [Mass results) [facility], ) Fraction] in Serum or Plasma Iron 297 ug/dL Normal (applies to MEDGEN (St Bind.Cap.(TIBC non-numeric Juan C's ) results) [facility], ) UIBC 222 ug/dL Normal (applies to MEDGEN (St non-numeric Juan C's results) [facility], ) Iron 75 ug/dL Normal (applies to MEDGEN (St [Mass/volume] non-numeric Juan C's in Serum or results) [facility], ) Plasma Iron 25 % Normal (applies to MEDGEN (St saturation non-numeric Juan C's [Mass results) [facility], ) Fraction] in Serum or Plasma ID Date Data Source [id number] 03/22/2020 12:00:00 AM EDT MEDGEN ([facility], ) Name Value Range Interpretation Code Description Data Supporting Source(s) Document(s ) Protein,To 101.5 Normal (applies to MEDGEN (St ruth,Urine mg/dL non-numeric Juan C's results) [facility], ) Albumin, U 36.2 % Normal (applies to MEDGEN (St non-numeric Juan C's results) [facility], ) Alpha-1-Gl 5.7 % Normal (applies to MEDGEN (St obulin, U non-numeric Juan C's results) [facility], ) Alpha-2-Gl 12.8 % Normal (applies to MEDGEN (St obulin, U non-numeric Juan C's results) [facility], ) Beta 29.7 % Normal (applies to MEDGEN (St Globulin, non-numeric Juan C's U results) [facility], ) Gamma 15.6 % Normal (applies to MEDGEN (St Globulin, non-numeric Juan C's U results) [facility], ) M-Kevyn, % Comment: Normal (applies to MEDGEN (St non-numeric Juan C's results) [facility], ) PDF . Normal (applies to MEDGEN [...] to MEDGEN (St non-numeric Juan C's results) [facility], ) ID Date Data Source [id number] 03/22/2020 12:00:00 AM EDT MEDGEN ([facility], ) Name Value Range Interpretation Description Data Sup porting Code Source(s) Document(s ) Microalbumin 4.0 g/dL Normal (applies MEDGEN (St [Mass/time] in to non-numeric Juan C's Urine collected results) Medical, for unspecified PC) duration Jglzw-8-Mcarcqwc 0.2 g/dL Normal (applies MEDGEN (St to non-numeric Juan C's results) Medical, PC) Ockcy-9-Zsrlhgpk 0.8 g/dL Normal (applies MEDGEN (St to [...] Total 5.1 g/dL Above high normal [facility] ([facility], ) A/G Ratio 0.8 Normal (applies MEDGEN (St to non-numeric Juan C's results) Medical, ) PDF . Normal (applies MEDGEN (St to non-numeric Juan C's results) Medical, ) Protein 9.0 g/dL Above high normal MEDGEN (St [Mass/volume] in Juan C's Serum or Plasma Medical, ) Microalbumin 4.0 g/dL Normal (applies MEDGEN (St [Mass/time] in to non-numeric Juan C's Urine collected results) [facility], for unspecified PC) duration Fjsza-3-Ipqdkhny 0.2 g/dL Normal (applies MEDGEN (St to non-numeric Juan C's results) Medical, ) Oiwyd-3-Ibixwdnx 0.8 g/dL Normal (applies MEDGEN (St to non-numeric Juan C's results) Medical, ) Beta globulin 0.8 g/dL Normal (applies MEDGEN (St [Mass/volume] in to non-numeric Juan C's Urine by results) Medical, Electrophoresis ) Gamma globulin 3.2 g/dL Above high normal MEDGEN (St [Mass/volume] by Juan C's Electrophoresis in Medical, Urine collected ) for unspecified duration M-Kevyn 2.9 g/dL Above high normal MEDGEN ([facility], ) Globulin, Total 5.0 g/dL Above high normal MEDGEN ([facility], ) A/G Ratio 0.8 Normal (applies MEDGEN (St to non-numeric Juan C's results) Medical, ) PDF . Normal (applies MEDGEN (St to non-numeric Juan C's results) Medical, ) ID Date Data Source [id number] 03/22/2020 12:00:00 AM EDT MEDGEN ([facility], ) Name Value Range Interpretation Description [...] results) Medical, ) ID Date Data Source [id number] 03/22/2020 12:00:00 AM EDT MEDGEN (St Julienne [...] by Light microscopy ID Date Data Source [id number] 03/22/2020 12:00:00 AM EDT MEDGEN (St Julienne [...] or Plasma Medical, PC) eGFR If NonAfricn 9 Below [...] in normal Juan C's Serum or Plasma [facility], ) Globulin, Total 5.2 g/dL Above high MEDGEN (St normal Juan C's [facility], ) Microalbumin 3.9 g/dL Normal (applies MEDGEN (St [Mass/time] in to non-numeric Juan C's Urine collected for results) Medical, unspecified ) duration A/G Ratio 0.8 Below low normal MEDGEN ([facility], ) Bilirubin.total 0.4 Normal (applies MEDGEN ( St [Mass/volume] in mg/dL to non-numeric Juan C's Serum or Plasma results) [facility], ) Aspartate 43 IU/L Above high MEDGEN [...] non-numeric Juan C's Urine collected for results) [facility], unspecified ) duration Urea nitrogen 36 mg/dL Above high MEDGEN (St [Mass/volume] in normal Juan C's Serum or Plasma [facility], ) Creatinine 2.81 Above high MEDGEN (St [Interpretation] in mg/dL normal Juan C's Urine [facility], ) eGFR If NonAfricn 21 Below low normal MEDGE N (St Am mL/min/[address] Juan C's [address] [place] [address], ) eGFR If Africn Am 24 Below low normal MEDGE N (St mL/min/1 Juan C's .73 [facility], ) BUN/Creatinine 13 Normal (applies MEDGEN (S t Ratio to non-numeric Juan C's results) [facility], ) Sodium 135 Normal (applies MEDGEN (St [Moles/volume] in mmol/L to non-numeric Juan C's Serum or Plasma results) [facility], ) Potassium 4.1 Normal (applies MEDGEN (St [...] non-numeric Juan C's Urine collected for results) [facility], unspecified ) duration Microalbumin 4.2 g/dL Normal (applies MEDGEN (St [Mass/time] in to non-numeric Juan C's Urine collected for results) [facility], unspecified ) duration Protein 9.0 g/dL Above high MEDGEN (St [Mass/volume] in normal Juan C's Serum or Plasma [facility], ) Globulin, Total 4.8 g/dL Above high MEDGEN (St normal [facility], ) A/G Ratio 0.9 Below low normal MEDGEN ([facility], ) Bilirubin.total 0.3 Normal (applies MEDGEN ( St [Mass/volume] in mg/dL to non-numeric Juan C's Serum or Plasma results) [facility], ) Alkaline 53 IU/L Normal (applies MEDGEN [...] Serum or Plasma ID Date Data Source [id number] 03/22/2020 12:00:00 AM EDT MEDGEN ([facility], ) Name Value Range Interpretation Description Data Sup porting Code Source(s) Document(s ) Leukocytes 11.7 Above high normal MEDGEN (St [#/volume] in x10E3/uL Juan C's Blood by [facility], ) Automated count Erythrocytes 2.47 Below lower panic MEDGEN (S t [#/volume] in x10E6/uL limits Juan C's Blood by [facility], ) Automated count Hematocrit 23.3 % Below low normal MEDGEN (St [Volume Juan C's Fraction] of [facility], ) Blood by Automated count Hemoglobin 8.2 g/dL Below low normal MEDGEN (St [Mass/volume] in Juan C's Blood [facility], ) MCV 94 fL Normal (applies MEDGEN (St to non-numeric Juan C's results) [facility]) MCH 33.2 pg Above high normal [facility] ([facility], ) MCHC 35.2 Normal (applies MEDGEN (St g/dL to non-numeric Juan C's results) [facility]) RDW 19.0 % Above high normal MEDGEN ([facility], ) Platelets 198 Normal (applies MEDGEN (St [#/area] in x10E3/uL to non-numeric Juan C's Blood by results) [facility]) Microscopy high power field Neutrophils [#] 54 % Normal (applies MEDGEN ( St in Body fluid by to non-numeric Juan C's Manual count results) [facility]) Lymphs 13 % Normal (applies MEDGEN (St to non-numeric Juan C's results) [facility]) Monocytes 16 % Normal (applies MEDGEN (St [#/volume] in to non-numeric Juan C's Cord blood results) [facility]) Basos 1 % Normal (applies MEDGEN (St to non-numeric Juan C's results) [facility]) Eos 11 % Normal (applies MEDGEN (St to non-numeric Juan C's results) [facility]) Neutrophils 6.4 Normal (applies MEDGEN (St (Absolute) x10E3/uL to non-numeric Juan C's results) [facility]) Monocytes(Absolu 1.9 Above high normal MEDGE N (St te) x10E3/uL [facility]) Lymphs 1.5 Normal (applies MEDGEN (St (Absolute) x10E3/uL to non-numeric Juan C's results) [facility]) Eos (Absolute) 1.3 Above high normal MEDGEN (St x10E3/uL Juan C's [facility]) Baso (Absolute) 0.1 Normal (applies MEDGEN ( St x10E3/uL to non-numeric Juan C's results) [facility]) Immature 5 % Normal (applies MEDGEN (St Granulocytes to non-numeric Juan C's results) [facility], ) Immature Grans 0.6 Above high normal MEDGEN (St (Abs) x10E3/uL Juan C's [facility], ) NRBC 4 % Above high normal MEDGEN ([facility], ) Leukocytes 11.8 Above high normal MEDGEN (St [#/volume] in x10E3/uL Juan C's Blood by [facility], ) Automated count Erythrocytes 3.28 Below low normal MEDGEN (St [#/volume] in x10E6/uL Juan C's Blood by [facility], ) Automated count Hemoglobin 10.8 Below low normal MEDGEN (St [Mass/volume] in g/dL Juan C's Blood [facility], ) Hematocrit 31.7 % Below low normal MEDGEN (St [Volume Juan C's Fraction] of [facility], ) Blood by Automated count MCH 32.9 pg Normal (applies MEDGEN (St to non-numeric Juan C's results) [facility], ) MCV 97 fL Normal (applies MEDGEN (St to non-numeric Juan C's results) [facility], ) MCHC 34.1 Normal (applies MEDGEN (St g/dL to non-numeric Juan C's results) [facility], ) RDW 17.5 % Above high normal MEDGEN ([facility], ) Platelets 237 Normal (applies MEDGEN (St [#/area] in x10E3/uL to non-numeric Juan C's Blood by results) [facility], ) Microscopy high power field Neutrophils [#] 53 % Normal (applies MEDGEN ( St in Body fluid by to non-numeric Juan C's Manual count results) [facility], ) Lymphs 20 % Normal (applies MEDGEN (St to non-numeric Juan C's results) [facility]) Eos 12 % Normal (applies MEDGEN (St to non-numeric Juan C's results) [facility], ) Monocytes 13 % Normal (applies MEDGEN (St [#/volume] in to non-numeric Juan C's Cord blood results) [facility], ) Basos 1 % Normal (applies MEDGEN (St to non-numeric Juan C's results) [facility], ) Neutrophils 6.2 Normal (applies MEDGEN (St (Absolute) x10E3/uL to non-numeric Juan C's results) [facility], ) Lymphs 2.4 Normal (applies MEDGEN (St (Absolute) x10E3/uL to non-numeric Juan C's results) [facility], ) Monocytes(Absolu 1.5 Above high normal MEDGE N (St te) x10E3/uL [facility], ) Eos (Absolute) 1.5 Above high normal MEDGEN (St x10E3/uL [facility], ) Immature 1 % Normal (applies MEDGEN (St Granulocytes to non-numeric Juan C's results) [facility], ) Baso (Absolute) 0.1 Normal (applies MEDGEN ( St x10E3/uL to non-numeric Juan C's results) [facility], ) Immature Grans 0.2 Above high normal MEDGEN (St (Abs) x10E3/uL [facility], ) Hematology Note: Normal (applies MEDGEN (St Comments: to non-numeric Juan C's results) [facility], ) Leukocytes 9.5 Normal (applies MEDGEN (St [#/volume] in x10E3/uL to non-numeric Juan C's Blood by results) [facility], ) Automated count Erythrocytes 3.28 Below low normal MEDGEN (St [#/volume] in x10E6/uL Juan C's Blood by [facility], ) Automated count Hemoglobin 10.9 Below low normal MEDGEN (St [Mass/volume] in g/dL Juan C's Blood [facility], ) Hematocrit 32.1 % Below low normal MEDGEN (St [Volume Juan C's Fraction] of [facility], ) Blood by Automated count MCV 98 fL Above high normal [facility] ([facility], ) MCH 33.2 pg Above high normal MEDGEN ([facility], ) RDW 17.3 % Above high normal MEDGEN ([facility], ) MCHC 34.0 Normal (applies MEDGEN (St g/dL to non-numeric Juan C's results) [facility], ) Platelets 240 Normal (applies MEDGEN (St [#/area] in x10E3/uL to non-numeric Juan C's Blood by results) [facility], ) Microscopy high power field Lymphs 19 % Normal (applies MEDGEN (St to non-numeric Juan C's results) [facility], ) Neutrophils [#] 53 % Normal (applies MEDGEN ( St in Body fluid by to non-numeric Juan C's Manual count results) [facility], ) Monocytes 15 % Normal (applies MEDGEN (St [#/volume] in to non-numeric Juan C's Cord blood results) [facility], ) Eos 11 % Normal (applies MEDGEN (St to non-numeric Juan C's results) [facility], ) Basos 0 % Normal (applies MEDGEN (St to non-numeric Juan C's results) [facility], ) Neutrophils 5.1 Normal (applies MEDGEN (St (Absolute) x10E3/uL to non-numeric Juan C's results) [facility], ) Lymphs 1.8 Normal (applies MEDGEN (St (Absolute) x10E3/uL to non-numeric Juan C's results) [facility], ) Eos (Absolute) 1.0 Above high normal MEDGEN (St x10E3/uL [facility], ) Monocytes(Absolu 1.5 Above high normal MEDGE N (St te) x10E3/uL [facility], ) Baso (Absolute) 0.0 Normal (applies MEDGEN ( St x10E3/uL to non-numeric Juan C's results) [facility], ) Immature 2 % Normal (applies MEDGEN (St Granulocytes to non-numeric Juan C's results) [facility], ) Hematology Note: Normal (applies MEDGEN (St Comments: to non-numeric Juan C's results) [facility], ) Immature Grans 0.2 Above high normal MEDGEN (St (Abs) x10E3/uL [facility]) ID Date Data Source [id number] 03/22/2020 12:00:00 AM EDT MEDGEN ([facility], ) Name Value Range Interpretation Code Description Data Lisa rce(s) Supporting Document(s ) ID Date Data Source [id number] 03/22/2020 12:00:00 AM EDT MEDGEN ([facility], ) Name Value Range Interpretation Code Description Data Supporting Source(s) Document(s ) PTH, Intact 10 pg/mL Below low normal MEDGEN ([facility], ) ID Date Data Source [id number] 03/22/2020 12:00:00 AM EDT MEDGEN ([facility], ) Name Value Range Interpretation Code Description Data Supporting Source(s) Document(s ) Ferritin, 349 ng/mL Normal (applies to MEDGEN (St Serum non-numeric Juan C's results) [facility], ) ID Date Data Source [id number] 03/22/2020 12:00:00 AM EDT MEDGEN ([facility], ) Name Value Range Interpretation Description Data Sup porting Code Source(s) Document(s ) Deprecated 5.4 mg/dL Above high normal MEDGEN (St Phosphorus Juan C's [Mass/time] in [facility], ) 24 hour Urine ID Date Data Source [id number] 03/22/2020 12:00:00 AM EDT MEDGEN ([facility], ) Name Value Range Interpretation Code Description Data Lisa rce(s) Supporting Document(s ) RAGINI Normal (applies to MEDGEN (St Interpreta non-numeric results) Juan C's M edical, tion:U ) ID Date Data Source [id number] 03/22/2020 12:00:00 AM EDT MEDGEN ([facility], ) Name Value Range Interpretation Description Data Sup porting Code Source(s) Document(s ) Vitamin D, 30.6 Normal (applies to MEDGEN (St 25-Hydroxy ng/mL non-numeric Juan C's results) [facility], ) ID Date Data Source [id number] 03/22/2020 12:00:00 AM EDT MEDGEN ([facility], ) Name Value Range Interpretation Description Data Sup porting Code Source(s) Document(s ) Free Ecorse 141.85 Above high normal MEDGEN (St Lt mg/L Juan C's Chains,Ur [facility], ) Free Lambda 110.44 Above high normal MEDGEN (St Lt mg/L Juan C's Chains,Ur [facility], ) Ecorse/Lambd 1.28 Normal (applies to MEDGEN (S t a Ratio,U non-numeric Juan C's results) [facility], ) ID Date Data Source [id number] 03/22/2020 12:00:00 AM EDT MEDGEN ([facility], ) Name Value Range Interpretation Description Data Sup porting Code Source(s) Document(s ) Free Ecorse 41.1 mg/L Above high normal MEDGEN (St Lt Chains,S Juan C's [facility], ) Free Lambda 176.0 mg/L Above high normal MEDGEN (S t Lt Chains,S [facility], ) Ecorse/Lambd 0.23 Below low normal MEDGEN [facility] ID Date Data Source [id number] 03/22/2020 12:00:00 AM EDT MEDGEN ([facility], ) Name Value Range Interpretation Code Description Data Supporting Source(s) Document(s ) Creatinine 94.7 mg/dL Normal (applies to MEDGEN (S t , Urine non-numeric Juan C's results) [facility], ) Protein/Cr 1072 mg/g Above high normal MEDGEN (St eat Ratio creat [facility], ) ID Date Data Source [id number] 03/22/2020 12:00:00 AM EDT MEDGEN ([facility], ) Name Value Range Interpretation Description Data Sup porting Code Source(s) Document(s ) Immunofixation Normal (applies MEDGEN (S t Result, Serum to non-numeric Juan C's results) [facility], ) Immunoglobulin G, 3867 Above high normal MEDG EN (St Qn, Serum mg/dL [facility]) Immunoglobulin A, 17 mg/dL Below low normal MEDGE N (St Qn, Serum [facility]) Immunoglobulin M, 8 mg/dL Below low normal MEDGE N (St Qn, Serum [facility], ) ID Date Data Source [id number] 03/22/2020 12:00:00 AM EDT MEDGEN ([facility], ) Name Value Range Interpretation Description Data Sup porting Code Source(s) Document(s ) Iron 248 ug/dL Below low normal MEDGEN (St Bind.Cap.(TIBC Juan C's ) [facility], ) UIBC 172 ug/dL Normal (applies to MEDGEN (St non-numeric Juan C's results) [facility]) Iron 76 ug/dL Normal (applies to MEDGEN (St [Mass/volume] non-numeric Juan C's in Serum or results) [facility], ) Plasma Iron 31 % Normal (applies to MEDGEN (St saturation non-numeric Juan C's [Mass results) [facility]) Fraction] in Serum or Plasma ID Date Data Source [id number] 03/22/2020 12:00:00 AM EDT MEDGEN ([facility], ) Name Value Range Interpretation Description [...] results) Medical, PC) ID Date Data Source [id number] 03/22/2020 12:00:00 AM EDT MEDGEN ([facility], ) Name Value Range Interpretation Description Data Sup porting Code Source(s) Document(s ) Microalbumin 4.0 g/dL Normal (applies MEDGEN (St [Mass/time] in to non-numeric Juan C's Urine collected results) Medical, for unspecified PC) duration Qpdfz-1-Hkfgbzpz 0.2 g/dL Normal (applies MEDGEN (St to non-numeric Juan C's results) [facility], PC) Gdyzo-9-Ulhdsgrl 0.8 g/dL Normal (applies MEDGEN (St to non-numeric Juan C's results) [facility], PC) Beta globulin 0.7 g/dL Normal (applies MEDGEN (St [Mass/volume] in to non-numeric Juan C's Urine by results) Medical, Electrophoresis PC) Gamma globulin 3.5 g/dL Above high normal MEDGEN (St [Mass/volume] by Juan C's Electrophoresis in Medical, Urine collected PC) for unspecified duration M-Kevyn 3.2 g/dL Above high normal [facility] ([facility], [facility]) Globulin, Total 5.1 g/dL Above high normal [facility] ([facility], [facility]) A/G Ratio 0.8 Normal (applies MEDGEN (St to non-numeric Juan C's results) Medical, PC) Please note: Normal (applies MEDGEN (St to non-numeric Juan C's results) [facility], PC) PDF . Normal (applies MEDGEN (St to non-numeric Juan C's results) Medical, ) ID Date Data Source [id number] 03/22/2020 12:00:00 AM EDT MEDGEN (St Julienne [...] results) Medical, ) ID Date Data Source [id number] 03/22/2020 12:00:00 AM EDT MEDGEN ([employer] [facility], ) Name Value Range Interpretation Description [...] by Light microscopy ID Date Data Source [id number] 03/22/2020 12:00:00 AM EDT MEDGEN ([facility], ) Name Value Range Interpretation Description [...] 5.2 g/dL Above high MEDGEN (St normal [facility], ) A/G Ratio 0.8 Below low normal MEDGEN ([facility], ) Bilirubin.total 0.4 Normal (applies MEDGEN [...] Serum or Plasma ID Date Data Source [id number] 03/22/2020 12:00:00 AM EDT MEDGEN ([facility], ) Name Value Range Interpretation Description Data Sup porting Code Source(s) Document(s ) Leukocytes 11.7 Above high normal MEDGEN (St [#/volume] in x10E3/uL Juan C's Blood by [facility], ) Automated count Erythrocytes 2.47 Below lower panic MEDGEN (S t [#/volume] in x10E6/uL limits Juan C's Blood by [facility], ) Automated count Hemoglobin 8.2 g/dL Below low normal MEDGEN (St [Mass/volume] in Juan C's Blood [facility], ) Hematocrit 23.3 % Below low normal MEDGEN (St [Volume Juan C's Fraction] of [facility], ) Blood by Automated count MCV 94 fL Normal (applies MEDGEN (St to non-numeric Juan C's results) [facility]) MCH 33.2 pg Above high normal MEDGEN ([facility], ) MCHC 35.2 Normal (applies MEDGEN (St g/dL to non-numeric Juan C's results) [facility]) RDW 19.0 % Above high normal MEDGEN ([facility], ) Platelets 198 Normal (applies MEDGEN (St [#/area] in x10E3/uL to non-numeric Juan C's Blood by results) [facility]) Microscopy high power field Neutrophils [#] 54 % Normal (applies MEDGEN ( St in Body fluid by to non-numeric Juan C's Manual count results) [facility], ) Lymphs 13 % Normal (applies MEDGEN (St to non-numeric Juan C's results) [facility]) Monocytes 16 % Normal (applies MEDGEN (St [#/volume] in to non-numeric Juan C's Cord blood results) [facility]) Eos 11 % Normal (applies MEDGEN (St to non-numeric Juan C's results) [facility]) Basos 1 % Normal (applies MEDGEN (St to non-numeric Juan C's results) [facility]) Neutrophils 6.4 Normal (applies MEDGEN (St (Absolute) x10E3/uL to non-numeric Juan C's results) [facility]) Monocytes(Absolu 1.9 Above high normal MEDGE N (St te) x10E3/uL Juan C's [facility]) Lymphs 1.5 Normal (applies MEDGEN (St (Absolute) x10E3/uL to non-numeric Juan C's results) [facility]) Eos (Absolute) 1.3 Above high normal MEDGEN (St x10E3/uL Juan C's [facility], ) Baso (Absolute) 0.1 Normal (applies MEDGEN ( St x10E3/uL to non-numeric Juan C's results) [facility], ) Immature 5 % Normal (applies MEDGEN (St Granulocytes to non-numeric Juan C's results) [facility]) Immature Grans 0.6 Above high normal MEDGEN (St (Abs) x10E3/uL [facility], ) NRBC 4 % Above high normal [facility] ([facility], ) ID Date Data Source [id number] 03/22/2020 12:00:00 AM EDT MEDGEN ([facility], ) Name Value Range Interpretation Code Description Data Lisa rce(s) Supporting Document(s ) ID Date Data Source [id number] 03/22/2020 12:00:00 AM EDT MEDGEN ([facility], ) Name Value Range Interpretation Code Description Data Supporting Source(s) Document(s ) PTH, Intact 10 pg/mL Below low normal [facility] ([facility], ) ID Date Data Source [id number] 03/22/2020 12:00:00 AM EDT MEDGEN ([facility], ) Name Value Range Interpretation Code Description Data Supporting Source(s) Document(s ) Ferritin, 349 ng/mL Normal (applies to MEDGEN (St Serum non-numeric Juan C's results) Medical, ) ID Date Data Source [id number] 03/22/2020 12:00:00 AM EDT MEDGEN ([facility], ) Name Value Range Interpretation Description Data Sup porting Code Source(s) Document(s ) Deprecated 5.4 mg/dL Above high normal MEDGEN (St Phosphorus Juan C's [Mass/time] in Medical, ) 24 hour Urine ID Date Data Source [id number] 03/22/2020 12:00:00 AM EDT MEDGEN ([facility], ) Name Value Range Interpretation Code Description Data Lisa rce(s) Supporting Document(s ) ID Date Data Source [id number] 03/22/2020 12:00:00 AM EDT MEDGEN ([facility], ) Name Value Range Interpretation Description Data Sup porting Code Source(s) Document(s ) Vitamin D, 30.6 Normal (applies to MEDGEN (St 25-Hydroxy ng/mL non-numeric Juan C's results) Medical, ) ID Date Data Source [id number] 03/22/2020 12:00:00 AM EDT MEDGEN ([facility], ) Name Value Range Interpretation Description Data Sup porting Code Source(s) Document(s ) Free Ecorse 141.85 Above high normal MEDGEN (St Lt mg/L Juan C's Chains,Ur [facility], PC) Free Lambda 110.44 Above high normal MEDGEN (St Lt mg/L Juan C's Chains,Ur [facility], PC) Ecorse/Lambd 1.28 Normal (applies to MEDGEN (S t a Ratio,U non-numeric Juan C's results) [facility], ) ID Date Data Source [id number] 03/22/2020 12:00:00 AM EDT MEDGEN ([facility]) Name Value Range Interpretation Description Data Sup porting Code Source(s) Document(s ) Free Lambda 176.0 mg/L Above high normal MEDGEN (S t Lt Chains,S [facility], [facility]) Free Ecorse 41.1 mg/L Above high normal MEDGEN (St Lt Chains,S [facility], [facility]) Ecorse/Lambd 0.23 Below low normal MEDGEN (St a Ratio,S [facility], ) ID Date Data Source [id number] 03/22/2020 12:00:00 AM EDT MEDGEN ([facility], ) Name Value Range Interpretation Code Description Data Supporting Source(s) Document(s ) Creatinine 94.7 mg/dL Normal (applies to MEDGEN (S t , Urine non-numeric Juan C's results) [facility], ) Protein/Cr 1072 mg/g Above high normal MEDGEN (St eat Ratio creat [facility], ) ID Date Data Source [id number] 03/22/2020 12:00:00 AM EDT MEDGEN ([facility], ) Name Value Range Interpretation Code Description Data Lisa rce(s) Supporting Document(s ) ID Date Data Source [id number] 03/22/2020 12:00:00 AM EDT MEDGEN ([facility], ) Name Value Range Interpretation Code Description Data Supporting Source(s) Document(s ) PTH, Intact 10 pg/mL Below low normal [facility] ([facility], ) ID Date Data Source [id number] 03/22/2020 12:00:00 AM EDT MEDGEN ([facility], ) Name Value Range Interpretation Code Description Data Supporting Source(s) Document(s ) Ferritin, 349 ng/mL Normal (applies to MEDGEN (St Serum non-numeric Juan C's results) [facility], ) ID Date Data Source [id number] 03/22/2020 12:00:00 AM EDT MEDGEN ([facility], ) Name Value Range Interpretation Description Data Sup porting Code Source(s) Document(s ) Deprecated 5.4 mg/dL Above high normal MEDGEN (St Phosphorus Juan C's [Mass/time] in Medical, ) 24 hour Urine ID Date Data Source [id number] 03/22/2020 12:00:00 AM EDT MEDGEN ([facility], ) Name Value Range Interpretation Code Description Data Lisa rce(s) Supporting Document(s ) ID Date Data Source [id number] 03/22/2020 12:00:00 AM EDT MEDGEN ([facility], ) Name Value Range Interpretation Description Data Sup porting Code Source(s) Document(s ) Vitamin D, 30.6 Normal (applies to MEDGEN (St 25-Hydroxy ng/mL non-numeric Juan C's results) [facility], ) ID Date Data Source [id number] 03/22/2020 12:00:00 AM EDT MEDGEN ([facility], ) Name Value Range Interpretation Description Data Sup porting Code Source(s) Document(s ) Free Ecorse 141.85 Above high normal MEDGEN (St Lt mg/L Juan C's Chains,Ur Medical, ) Free Lambda 110.44 Above high normal MEDGEN (St Lt mg/L Juan C's Chains,Ur [facility], ) Ecorse/Lambd 1.28 Normal (applies to MEDGEN (S t a Ratio,U non-numeric Juan C's results) [facility], ) ID Date Data Source [id number] 03/22/2020 12:00:00 AM EDT MEDGEN ([facility], ) Name Value Range Interpretation Description Data Sup porting Code Source(s) Document(s ) Free Ecorse 41.1 mg/L Above high normal MEDGEN (St Lt Chains,S Juan C's [facility], ) Ecorse/Lambd 0.23 Below low normal MEDGEN (St a Ratio,S [facility], ) Free Lambda 176.0 mg/L Above high normal MEDGEN (S t Lt Chains,S [facility], ) ID Date Data Source [id number] 03/22/2020 12:00:00 AM EDT MEDGEN ([facility], ) Name Value Range Interpretation Code Description Data Supporting Source(s) Document(s ) Creatinine 94.7 mg/dL Normal (applies to MEDGEN (S t , Urine non-numeric Juan C's results) [facility], ) Protein/Cr 1072 mg/g Above high normal MEDGEN (St eat Ratio creat [facility], ) ID Date Data Source [id number] 03/22/2020 12:00:00 AM EDT MEDGEN ([facility], ) Name Value Range Interpretation Description Data Sup porting Code Source(s) Document(s ) Immunoglobulin G, 3867 Above high normal MEDG EN (St Qn, Serum mg/dL [facility]) Immunoglobulin A, 17 mg/dL Below low normal MEDGE N (St Qn, Serum [facility], ) Immunoglobulin M, 8 mg/dL Below low normal MEDGE N (St Qn, Serum [facility], ) ID Date Data Source [id number] 03/22/2020 12:00:00 AM EDT MEDGEN (St [facility], ) Name Value Range Interpretation Description Data Sup porting Code Source(s) Document(s ) Iron 248 ug/dL Below low normal MEDGEN (St Bind.Cap.(TIBC Juan C's ) [facility], ) Iron 76 ug/dL Normal (applies to MEDGEN (St [Mass/volume] non-numeric Juan C's in Serum or results) [facility], ) Plasma UIBC 172 ug/dL Normal (applies to MEDGEN (St non-numeric Juan C's results) [facility], ) Iron 31 % Normal (applies to MEDGEN (St saturation non-numeric Juan C's [Mass results) [facility], ) Fraction] in Serum or Plasma ID Date Data Source [id number] 03/22/2020 12:00:00 AM EDT MEDGEN ([facility], ) Name Value Range Interpretation Code Description Data Supporting Source(s) Document(s ) Protein,To 101.5 Normal (applies to MEDGEN (St ruth,Urine mg/dL non-numeric Juan C's results) [facility], ) Albumin, U 36.2 % Normal (applies to MEDGEN (St non-numeric Juan C's results) [facility], ) Alpha-1-Gl 5.7 % Normal (applies to MEDGEN (St obulin, U non-numeric Juan C's results) Medical, PC) Alpha-2-Gl 12.8 % Normal (applies to MEDGEN (St obulin, U non-numeric Juan C's results) Medical, PC) Gamma 15.6 % Normal (applies to MEDGEN (St Globulin, non-numeric Juan C's U results) Medical, PC) Beta 29.7 % Normal (applies to MEDGEN (St Globulin, non-numeric Juan C's U results) Medical, ) M-Kevyn, % Comment: Normal (applies to MEDGEN (St non-numeric Juan C's results) Medical, ) PDF . Normal (applies to MEDGEN (St non-numeric Juan C's results) Medical, ) ID Date Data Source [id number] 03/22/2020 12:00:00 AM EDT MEDGEN ([facility], ) Name Value Range Interpretation Description Data Sup porting Code Source(s) Document(s ) Microalbumin 4.0 g/dL Normal (applies MEDGEN (St [Mass/time] in to non-numeric Juan C's Urine collected results) Medical, for unspecified PC) duration Nmmmh-1-Mgnhzusr 0.8 g/dL Normal (applies MEDGEN (St to non-numeric Juan C's results) Medical, PC) Sbaiw-1-Lxgzkbqx 0.2 g/dL Normal (applies MEDGEN (St to [...] results) Medical, ) ID Date Data Source [id number] 03/22/2020 12:00:00 AM EDT MEDGEN ([facility] [...] results) Medical, PC) ID Date Data Source [id number] 03/22/2020 12:00:00 AM EDT MEDGEN (St Julienne [...] by Light microscopy ID Date Data Source [id number] 03/22/2020 12:00:00 AM EDT MEDGEN ([facility], ) Name Value Range Interpretation Description [...] in normal Juan C's Serum or Plasma [facility], ) Microalbumin 3.9 g/dL Normal (applies MEDGEN (St [Mass/time] in to non-numeric Juan C's Urine collected for results) [facility], unspecified ) duration Globulin, Total 5.2 g/dL Above high MEDGEN (St normal [facility], ) A/G Ratio 0.8 Below low normal MEDGEN ([facility], ) Bilirubin.total 0.4 Normal (applies MEDGEN ( St [Mass/volume] in mg/dL to non-numeric Juan C's Serum or Plasma results) [facility], ) Alkaline 63 IU/L Normal (applies MEDGEN (St phosphatase to non-numeric Juan C's [Enzymatic results) [facility], activity/volume] in ) Serum, Plasma or Blood Aspartate 43 IU/L Above high MEDGEN (St aminotransferase normal Juan C's [Enzymatic Medical, activity/volume] in ) Serum or Plasma Alanine 43 IU/L Normal (applies MEDGEN (St aminotransferase to non-numeric Juan C's [Enzymatic results) [facility], activity/volume] in ) Serum or Plasma ID Date Data Source [id number] 03/22/2020 12:00:00 AM EDT MEDGEN ([facility], ) Name Value Range Interpretation Description Data Sup porting Code Source(s) Document(s ) Leukocytes 11.7 Above high normal MEDGEN (St [#/volume] in x10E3/uL Juan C's Blood by [facility], ) Automated count Erythrocytes 2.47 Below lower panic MEDGEN (S t [#/volume] in x10E6/uL limits [facility]'s Blood by [facility], ) Automated count Hemoglobin 8.2 g/dL Below low normal MEDGEN (St [Mass/volume] in Juan C's Blood [facility], ) MCV 94 fL Normal (applies MEDGEN (St to non-numeric Juan C's results) [facility], ) Hematocrit 23.3 % Below low normal MEDGEN (St [Volume Juan C's Fraction] of [facility]) Blood by Automated count MCH 33.2 pg Above high normal MEDGEN ([facility], ) MCHC 35.2 Normal (applies MEDGEN (St g/dL to non-numeric Juan C's results) [facility]) RDW 19.0 % Above high normal [facility] ([facility], ) Neutrophils [#] 54 % Normal (applies MEDGEN ( St in Body fluid by to non-numeric Juan C's Manual count results) [facility]) Platelets 198 Normal (applies MEDGEN (St [#/area] in x10E3/uL to non-numeric Juan C's Blood by results) [facility]) Microscopy high power field Lymphs 13 % Normal (applies MEDGEN (St to non-numeric Juan C's results) [facility]) Eos 11 % Normal (applies MEDGEN (St to non-numeric Juan C's results) [facility]) Monocytes 16 % Normal (applies MEDGEN (St [#/volume] in to non-numeric Juan C's Cord blood results) [facility]) Basos 1 % Normal (applies MEDGEN (St to non-numeric Juan C's results) [facility]) Neutrophils 6.4 Normal (applies MEDGEN (St (Absolute) x10E3/uL to non-numeric Juan C's results) [facility]) Lymphs 1.5 Normal (applies MEDGEN (St (Absolute) x10E3/uL to non-numeric Juan C's results) [facility]) Monocytes(Absolu 1.9 Above high normal MEDGE N (St te) x10E3/uL [facility]) Baso (Absolute) 0.1 Normal (applies MEDGEN ( St x10E3/uL to non-numeric Juan C's results) [facility]) Eos (Absolute) 1.3 Above high normal MEDGEN (St x10E3/uL Juan C's [facility]) Immature 5 % Normal (applies MEDGEN (St Granulocytes to non-numeric Juan C's results) [facility]) Immature Grans 0.6 Above high normal MEDGEN (St (Abs) x10E3/uL [facility]) NRBC 4 % Above high normal [facility] ([facility], ) ID Date Data Source [id number] 03/22/2020 12:00:00 AM EDT MEDGEN ([facility], ) Name Value Range Interpretation Code Description Data Lisa rce(s) Supporting Document(s ) ID Date Data Source [id number] 03/22/2020 12:00:00 AM EDT [facility] ([facility], ) Name Value Range Interpretation Code Description Data Supporting Source(s) Document(s ) PTH, Intact 10 pg/mL Below low normal MEDGEN ([facility], ) ID Date Data Source [id number] 03/22/2020 12:00:00 AM EDT [facility] ([facility], ) Name Value Range Interpretation Code Description Data Supporting Source(s) Document(s ) Ferritin, 349 ng/mL Normal (applies to MEDGEN (St Serum non-numeric Juan C's results) [facility], ) ID Date Data Source [id number] 03/22/2020 12:00:00 AM EDT [facility] ([facility], ) Name Value Range Interpretation Description Data Sup porting Code Source(s) Document(s ) Deprecated 5.4 mg/dL Above high normal MEDGEN (St Phosphorus Juan C's [Mass/time] in [facility], ) 24 hour Urine ID Date Data Source [id number] 03/22/2020 12:00:00 AM EDT [facility] ([facility], ) Name Value Range Interpretation Code Description Data Lisa rce(s) Supporting Document(s ) ID Date Data Source [id number] 03/22/2020 12:00:00 AM EDT [facility] ([facility], ) Name Value Range Interpretation Description Data Sup porting Code Source(s) Document(s ) Vitamin D, 30.6 Normal (applies to MEDGEN (St 25-Hydroxy ng/mL non-numeric Juan C's results) [facility], ) ID Date Data Source [id number] 03/22/2020 12:00:00 AM EDT [facility] ([facility], ) Name Value Range Interpretation Description Data Sup porting Code Source(s) Document(s ) Free Ecorse 141.85 Above high normal MEDGEN (St Lt mg/L Juan C's Chains,Ur [facility], ) Free Lambda 110.44 Above high normal MEDGEN (St Lt mg/L Juan C's Chains,Ur [facility], ) Ecorse/Lambd 1.28 Normal (applies to MEDGEN (S t a Ratio,U non-numeric Juan C's results) [facility], ) ID Date Data Source [id number] 03/22/2020 12:00:00 AM EDT [facility] ([facility], ) Name Value Range Interpretation Description Data Sup porting Code Source(s) Document(s ) Free [place]cor[place] 41.1 mg/L Above high normal MEDGEN (St Lt Chains,S [facility], ) Ecorse/Lambd 0.23 Below low normal MEDGEN (St a Ratio,S [facility], ) Free Lambda 176.0 mg/L Above high normal MEDGEN (S t Lt Chains,S [facility], ) ID Date Data Source [id number] 03/22/2020 12:00:00 AM EDT [facility] ([facility], ) Name Value Range Interpretation Code Description Data Supporting Source(s) Document(s ) Creatinine 94.7 mg/dL Normal (applies to MEDGEN (S t , Urine non-numeric Juan C's results) [facility], ) Protein/Cr 1072 mg/g Above high normal MEDGEN (St eat Ratio creat [facility], ) ID Date Data Source [id number] 03/22/2020 12:00:00 AM EDT [facility] ([facility], ) Name Value Range Interpretation Description Data Sup porting Code Source(s) Document(s ) Immunoglobulin G, 3867 Above high normal MEDG EN (St Qn, Serum mg/dL [facility], ) Immunoglobulin A, 17 mg/dL Below low normal MEDGE N (St Qn, Serum [facility], ) Immunoglobulin M, 8 mg/dL Below low normal MEDGE N (St Qn, Serum [facility], ) ID Date Data Source [id number] 03/22/2020 12:00:00 AM EDT [facility] ([facility], ) Name Value Range Interpretation Description Data Sup porting Code Source(s) Document(s ) Iron 248 ug/dL Below low normal MEDGEN (St Bind.Cap.(TIBC Juan C's ) [facility], ) UIBC 172 ug/dL Normal (applies to MEDGEN (St non-numeric Juan C's results) [facility]) Iron 76 ug/dL Normal (applies to MEDGEN (St [Mass/volume] non-numeric Juan C's in Serum or results) [facility], ) Plasma Iron 31 % Normal (applies to MEDGEN (St saturation non-numeric Juan C's [Mass results) [facility], ) Fraction] in Serum or Plasma ID Date Data Source [id number] 03/22/2020 12:00:00 AM EDT [facility] ([facility] ) Name Value Range Interpretation Code Description Data Supporting Source(s) Document(s ) Protein,To 101.5 Normal (applies to MEDGEN (St ruth,Urine mg/dL non-numeric Juan C's results) [facility], ) Albumin, U 36.2 % Normal (applies to MEDGEN (St non-numeric Juan C's results) [facility], ) Alpha-1-Gl 5.7 % Normal (applies to MEDGEN (St obulin, U non-numeric Juan C's results) [facility], ) Alpha-2-Gl 12.8 % Normal (applies to MEDGEN (St obulin, U non-numeric Juan C's results) [facility], ) Gamma 15.6 % Normal (applies to MEDGEN (St Globulin, non-numeric Juan C's U results) [facility], ) Beta 29.7 % Normal (applies to MEDGEN (St Globulin, non-numeric Juan C's U results) [facility], ) PDF . Normal (applies to MEDGEN (St non-numeric Juan C's results) [facility], ) M-Kevyn, % Comment: Normal (applies to MEDGEN (St non-numeric Juan C's results) [facility], ) ID Date Data Source [id number] 03/22/2020 12:00:00 AM EDT [facility] ([facility] ) Name Value Range Interpretation Description Data Sup porting Code Source(s) Document(s ) Immunoglobulin G, 3867 Above high normal MEDG EN (St Qn, Serum mg/dL Juan C's [facility], ) Immunoglobulin A, 17 mg/dL Below low normal MEDGE N (St Qn, Serum Juan C's [facility], ) Immunoglobulin M, 8 mg/dL Below low normal MEDGE N (St Qn, Serum Juan C's [facility], ) ID Date Data Source [id number] 03/22/2020 12:00:00 AM EDT [facility] ([facility], ) Name Value Range Interpretation Description Data Sup porting Code Source(s) Document(s ) Iron 248 ug/dL Below low normal MEDGEN (St Bind.Cap.(TIBC Juan C's ) Medical, ) UIBC 172 ug/dL Normal (applies to MEDGEN (St non-numeric Juan C's results) [facility], ) Iron 76 ug/dL Normal (applies to MEDGEN (St [Mass/volume] non-numeric Juan C's in Serum or results) [facility], ) Plasma Iron 31 % Normal (applies to MEDGEN (St saturation non-numeric Juan C's [Mass results) [facility], ) Fraction] in Serum or Plasma ID Date Data Source [id number] 03/22/2020 12:00:00 AM EDT [facility] ([facility], ) Name Value Range Interpretation Code Description Data Supporting Source(s) Document(s ) Protein,To 101.5 Normal (applies to MEDGEN (St ruth,Urine mg/dL non-numeric Juan C's results) [facility], ) Albumin, U 36.2 % Normal (applies to MEDGEN (St non-numeric Juan C's results) [facility], ) Alpha-1-Gl 5.7 % Normal (applies to MEDGEN (St obulin, U non-numeric Juan C's results) [facility], ) Alpha-2-Gl 12.8 % Normal (applies to MEDGEN (St obulin, U non-numeric Juan C's results) [facility], ) Beta 29.7 % Normal (applies to MEDGEN (St Globulin, non-numeric Juan C's U results) [facility], ) Gamma 15.6 % Normal (applies to MEDGEN (St Globulin, non-numeric Juan C's U results) [facility], ) M-Kevyn, % Comment: Normal (applies to MEDGEN (St non-numeric Juan C's results) [facility], ) PDF . Normal (applies to MEDGEN (St non-numeric Juan C's results) [facility], ) ID Date Data Source [id number] 03/22/2020 12:00:00 AM EDT [facility] ([facility], ) Name Value Range Interpretation Description Data Sup porting Code Source(s) Document(s ) Microalbumin 4.0 g/dL Normal (applies MEDGEN (St [Mass/time] in to non-numeric Juan C's Urine collected results) Medical, for unspecified PC) duration Ayaxb-1-Bgfbqoae 0.8 g/dL Normal (applies MEDGEN (St to non-numeric Juan C's results) Medical, ) Pwfsk-9-Ibqzzfan 0.2 g/dL Normal (applies MEDGEN (St to non-numeric Juan C's results) Medical, PC) Gamma globulin 3.5 g/dL Above high normal MEDGEN (St [Mass/volume] by Juan C's Electrophoresis in Medical, Urine collected PC) for unspecified duration Beta globulin 0.7 g/dL Normal (applies MEDGEN (St [Mass/volume] in to non-numeric Juan C's Urine by results) Medical, Electrophoresis PC) M-Kevyn 3.2 g/dL Above high normal MEDGEN ([facility], ) Globulin, Total 5.1 g/dL Above high normal MEDGEN ([facility], ) A/G Ratio 0.8 Normal (applies MEDGEN (St to non-numeric Juan C's results) Medical, ) PDF . Normal (applies MEDGEN (St to non-numeric Juan C's results) Medical, ) ID Date Data Source [id number] 03/22/2020 12:00:00 AM EDT [facility] ([facility], ) Name Value Range Interpretation [...] results) Medical, PC) ID Date Data Source [id number] 03/22/2020 12:00:00 AM EDT [facility] ([facility] Name Value Range Interpretation Description Data Sup porting Code Source(s) Document(s ) WBC 0-5 Normal (applies MEDGEN (St to non-numeric Juna C's results) Medical, PC) RBC 3-10 Abnormal [...] by Light microscopy ID Date Data Source [id number] 03/22/2020 12:00:00 AM EDT MEDGEN ([facility] [...] MEDGE N (St mL/min/1 Juan C's .73 [facility], ) BUN/Creatinine 10 Normal (applies MEDGEN (S [...] MEDGEN ( St total mmol/L to non-numeric Juanc 's [Moles/volume] in results) Medical, Serum or Plasma [...] C's Serum or Plasma results) Medical, PC) Alkaline 63 IU/L Normal (applies MEDGEN (St [...] Serum or Plasma ID Date Data Source [id number] 03/22/2020 12:00:00 AM EDT [facility] ([facility], ) Name Value Range Interpretation Description Data Sup porting Code Source(s) Document(s ) Leukocytes 11.7 Above high normal MEDGEN (St [#/volume] in x10E3/uL Juan C's Blood by [facility], ) Automated count Erythrocytes 2.47 Below lower panic MEDGEN (S t [#/volume] in x10E6/uL limits Juan C's Blood by [facility], ) Automated count Hemoglobin 8.2 g/dL Below low normal MEDGEN (St [Mass/volume] in Juan C's Blood [facility], ) Hematocrit 23.3 % Below low normal MEDGEN (St [Volume Juan C's Fraction] of [facility], ) Blood by Automated count MCV 94 fL Normal (applies MEDGEN (St to non-numeric Juan C's results) [facility], ) MCH 33.2 pg Above high normal MEDGEN ([facility], ) MCHC 35.2 Normal (applies MEDGEN (St g/dL to non-numeric Juan C's results) [facility], ) RDW 19.0 % Above high normal MEDGEN ([facility], ) Platelets 198 Normal (applies MEDGEN (St [#/area] in x10E3/uL to non-numeric Juan C's Blood by results) [facility], ) Microscopy high power field Neutrophils [#] 54 % Normal (applies MEDGEN ( St in Body fluid by to non-numeric Juan C's Manual count results) [facility], ) Lymphs 13 % Normal (applies MEDGEN (St to non-numeric Juan C's results) [facility], ) Monocytes 16 % Normal (applies MEDGEN (St [#/volume] in to non-numeric Juan C's Cord blood results) [facility], ) Eos 11 % Normal (applies MEDGEN (St to non-numeric Juan C's results) [facility], ) Basos 1 % Normal (applies MEDGEN (St to non-numeric Juan C's results) [facility], ) Neutrophils 6.4 Normal (applies MEDGEN (St (Absolute) x10E3/uL to non-numeric Juan C's results) [facility], ) Lymphs 1.5 Normal (applies MEDGEN (St (Absolute) x10E3/uL to non-numeric Juan C's results) [facility], ) Monocytes(Absolu 1.9 Above high normal MEDGE N (St te) x10E3/uL [facility]) Eos (Absolute) 1.3 Above high normal MEDGEN (St x10E3/uL [facility], ) Immature 5 % Normal (applies MEDGEN (St Granulocytes to non-numeric Juan C's results) [facility], ) Baso (Absolute) 0.1 Normal (applies MEDGEN ( St x10E3/uL to non-numeric Juan C's results) [facility]) Immature Grans 0.6 Above high normal MEDGEN (St (Abs) x10E3/uL [facility], ) NRBC 4 % Above high normal MEDGEN ([facility], ) ID Date Data Source [id number] 11/17/2019 12:00:00 AM EST [facility] ([facility], ) Name Value Range Interpretation Description Data Sup porting Code Source(s) Document(s ) Glucose 146 mg/dL Above high normal MEDGEN (St [Mass/volume] Juan C's in Urine [facility], ) collected for unspecified duration Urea nitrogen 41 mg/dL Above high normal MEDGEN ( St [Mass/volume] Juan C's in Serum or [facility], ) Plasma Creatinine 3.05 Above high normal MEDGEN (St [Interpretation mg/dL Juan C's ] in Urine [facility], ) eGFR If 19 Below low normal MEDGEN (St NonAfricn Am mL/min/1. Juan C's [address] [place] [address], ) eGFR If Africn 22 Below low normal MEDGEN ( St Am mL/min/1. Juan C's 73 [facility], ) BUN/Creatinine 13 Normal (applies MEDGEN (S t Ratio to non-numeric Juan C's results) [facility], ) Sodium 140 Normal (applies MEDGEN (St [Moles/volume] mmol/L to non-numeric Juan C's in Serum or results) [facility], ) Plasma Potassium 4.0 Normal (applies MEDGEN (St [Mass/volume] mmol/L to non-numeric Juan C's in Blood results) [facility], ) Chloride 104 Normal (applies MEDGEN (St [Moles/volume] mmol/L to non-numeric Juan C's in Serum or results) [facility], ) Plasma Carbon dioxide, 21 mmol/L Normal (applies MEDGEN ( St total to non-numeric Juan C's [Moles/volume] results) Medical, ) in Serum or Plasma Calcium 9.3 mg/dL Normal (applies MEDGEN (St [Moles/volume] to non-numeric Juan C's in Urine results) Medical, ) collected for unspecified duration ID Date Data Source [id number] 11/17/2019 12:00:00 AM EST [facility] ([facility], ) Name Value Range Interpretation Description Data Sup porting Code Source(s) Document(s ) Glucose 146 mg/dL Above high normal MEDGEN (St [Mass/volume] Juan C's in Urine [facility], ) collected for unspecified duration Urea nitrogen 41 mg/dL Above high normal MEDGEN ( St [Mass/volume] Juan C's in Serum or Medical, ) Plasma Creatinine 3.05 Above high normal MEDGEN (St [Interpretation mg/dL Juan C's ] in Urine [facility], ) eGFR If 19 Below low normal MEDGEN (St NonAfricn Am mL/min/1. Juan C's 73 [facility], ) eGFR If Africn 22 Below low normal MEDGEN ( St Am mL/min/1. Juan C's 73 [facility], ) BUN/Creatinine 13 Normal (applies MEDGEN (S [...] for unspecified duration ID Date Data Source [id number] 11/17/2019 12:00:00 AM EST [facility] ([facility], ) Name Value Range Interpretation Description Data Sup porting Code Source(s) Document(s ) Glucose 146 mg/dL Above high normal MEDGEN (St [Mass/volume] Juan C's in Urine [facility], ) collected for unspecified duration Creatinine 3.05 Above high normal MEDGEN (St [Interpretation mg/dL Juan C's ] in Urine [facility], ) Urea nitrogen 41 mg/dL Above high normal MEDGEN ( St [Mass/volume] Juan C's in Serum or [facility], ) Plasma eGFR If 19 Below low normal MEDGEN (St NonAfricn Am mL/min/. Juan C 73 [facility], ) BUN/Creatinine 13 Normal (applies MEDGEN (S t Ratio to non-numeric Juan C's results) [facility]) eGFR If Africn 22 Below low normal MEDGEN ( St Am mL/min/. Juan C 73 [facility], ) Potassium 4.0 Normal (applies MEDGEN (St [Mass/volume] mmol/L to non-numeric Juan C's in Blood results) [facility]) Sodium 140 Normal (applies MEDGEN (St [Moles/volume] mmol/L to non-numeric Juan C's in Serum or results) [facility]) Plasma Chloride 104 Normal (applies MEDGEN (St [Moles/volume] mmol/L to non-numeric Juan C's in Serum or results) [facility]) Plasma Calcium 9.3 mg/dL Normal (applies MEDGEN (St [Moles/volume] to non-numeric Juan C's in Urine results) [facility], ) collected for unspecified duration Carbon dioxide, 21 mmol/L Normal (applies MEDGEN ( St total to non-numeric Juan C's [Moles/volume] results) [facility]) in Serum or Plasma ID Date Data Source [id number] 11/17/2019 12:00:00 AM EST [facility] ([facility], ) Name Value Range Interpretation Description Data Sup porting Code Source(s) Document(s ) Glucose 146 mg/dL Above high normal MEDGEN (St [Mass/volume] Juan C's in Urine [facility], ) collected for unspecified duration Urea nitrogen 41 mg/dL Above high normal MEDGEN ( St [Mass/volume] Juan C's in Serum or [facility], ) Plasma Creatinine 3.05 Above high normal MEDGEN (St [Interpretation mg/dL Juan C's ] in Urine [facility], ) eGFR If 19 Below low normal MEDGEN (St NonAfricn Am mL/min/1. Juan C's 73 [facility], ) eGFR If Africn 22 Below low normal MEDGEN ( St Am mL/min/1. Juan C's 73 [facility], ) BUN/Creatinine 13 Normal (applies MEDGEN (S [...] to non-numeric Juan C's in Blood results) [facility], ) Carbon dioxide, 21 mmol/L Normal (applies MEDGEN ( St total to non-numeric Juan C's [Moles/volume] results) [facility], ) in Serum or Plasma Calcium 9.3 mg/dL Normal (applies MEDGEN (St [Moles/volume] to non-numeric Juan C's in Urine results) [facility], ) collected for unspecified duration ID Date Data Source [id number] 11/17/2019 12:00:00 AM EST [facility] ([facility], ) Name Value Range Interpretation Description Data Sup porting Code Source(s) Document(s ) Glucose 146 mg/dL Above high normal MEDGEN (St [Mass/volume] Juan C's in Urine [facility], ) collected for unspecified duration Urea nitrogen 41 mg/dL Above high normal MEDGEN ( St [Mass/volume] Juan C's in Serum or [facility], ) Plasma Creatinine 3.05 Above high normal MEDGEN (St [Interpretation mg/dL Juan C's ] in Urine [facility], ) eGFR If 19 Below low normal MEDGEN (St NonAfricn Am mL/min/1. Juan C's 73 [facility], ) eGFR If Africn 22 Below low normal MEDGEN ( St Am mL/min/1. Juan C's 73 [facility], ) BUN/Creatinine 13 Normal (applies MEDGEN (S t Ratio to non-numeric Juan C's results) [facility], ) Potassium 4.0 Normal (applies MEDGEN (St [Mass/volume] mmol/L to non-numeric Juan C's in Blood results) Medical, ) Sodium 140 Normal (applies MEDGEN (St [Moles/volume] mmol/L to non-numeric Juan C's in Serum or results) [facility], ) Plasma Chloride 104 Normal (applies MEDGEN (St [Moles/volume] mmol/L to non-numeric Juan C's in Serum or results) Medical, ) Plasma Carbon dioxide, 21 mmol/L Normal (applies MEDGEN ( St total to non-numeric Juan C's [Moles/volume] results) [facility], ) in Serum or Plasma Calcium 9.3 mg/dL Normal (applies MEDGEN (St [Moles/volume] to non-numeric Juan C's in Urine results) [facility], ) collected for unspecified duration ID Date Data Source [id number] 11/17/2019 12:00:00 AM EST [facility] ([facility], ) Name Value Range Interpretation Description Data Sup porting Code Source(s) Document(s ) Glucose 146 mg/dL Above high normal MEDGEN (St [Mass/volume] Juan C's in Urine [facility], ) collected for unspecified duration Urea nitrogen 41 mg/dL Above high normal MEDGEN ( St [Mass/volume] Juan C's in Serum or Medical, ) Plasma Creatinine 3.05 Above high normal MEDGEN (St [Interpretation mg/dL Juan C's ] in Urine [facility], ) eGFR If 19 Below low normal MEDGEN (St NonAfricn Am mL/min/1. Juan C's 73 [facility], ) eGFR If Africn 22 Below low normal MEDGEN ( St Am mL/min/1. Juan C's 73 [facility], ) BUN/Creatinine 13 Normal (applies MEDGEN (S t Ratio to non-numeric Juan C's results) [facility], ) Sodium 140 Normal (applies MEDGEN (St [Moles/volume] mmol/L to non-numeric Juan C's in Serum or results) Medical, ) Plasma Potassium 4.0 Normal (applies MEDGEN (St [Mass/volume] mmol/L to non-numeric Juan C's in Blood results) [facility], ) Chloride 104 Normal (applies MEDGEN (St [Moles/volume] mmol/L to non-numeric Juan C's in Serum or results) Medical, ) Plasma Carbon dioxide, 21 mmol/L Normal (applies MEDGEN ( St total to non-numeric Juan C's [Moles/volume] results) Medical, ) in Serum or Plasma Calcium 9.3 mg/dL Normal (applies MEDGEN (St [Moles/volume] to non-numeric Juan C's in Urine results) [facility], ) collected for unspecified duration ID Date Data Source [id number] 11/17/2019 12:00:00 AM EST [facility] ([facility], ) Name Value Range Interpretation Description Data Sup porting Code Source(s) Document(s ) Glucose 146 mg/dL Above high normal MEDGEN (St [Mass/volume] Juan C's in Urine [facility], ) collected for unspecified duration Urea nitrogen 41 mg/dL Above high normal MEDGEN ( St [Mass/volume] Juan C's in Serum or [facility], ) Plasma Creatinine 3.05 Above high normal MEDGEN (St [Interpretation mg/dL Juan C's ] in Urine [facility], ) eGFR If 19 Below low normal MEDGEN (St NonAfricn Am mL/min/1. Juan C's 73 [facility], ) eGFR If Africn 22 Below low normal MEDGEN ( St Am mL/min/1. Juan C's 73 [facility], ) BUN/Creatinine 13 Normal (applies MEDGEN (S [...] to non-numeric Juan C's in Urine results) [facility], ) collected for unspecified duration Carbon dioxide, 21 mmol/L Normal (applies MEDGEN ( St total to non-numeric Juan C's [Moles/volume] results) Medical, ) in Serum or Plasma ID Date Data Source [id number] 11/17/2019 12:00:00 AM EST [facility] ([facility], ) Name Value Range Interpretation Description Data Sup porting Code Source(s) Document(s ) Glucose 146 mg/dL Above high normal MEDGEN (St [Mass/volume] Juan C's in Urine [facility], ) collected for unspecified duration Urea nitrogen 41 mg/dL Above high normal MEDGEN ( St [Mass/volume] Juan C's in Serum or Medical, ) Plasma Creatinine 3.05 Above high normal MEDGEN (St [Interpretation mg/dL Juan C's ] in Urine Medical, ) eGFR If 19 Below low normal MEDGEN (St NonAfricn Am mL/min/1. Juan C's 73 [facility], ) eGFR If Africn 22 Below low normal MEDGEN ( St Am mL/min/. Juan C' 73 [facility], ) BUN/Creatinine 13 Normal (applies MEDGEN (S t Ratio to non-numeric Juan C's results) [facility], ) Sodium 140 Normal (applies MEDGEN (St [...] to non-numeric Juan C's in Urine results) [facility], ) collected for unspecified duration ID Date Data Source [id number] 11/17/2019 12:00:00 AM EST [facility] ([facility], ) Name Value Range Interpretation Description Data Sup porting Code Source(s) Document(s ) Glucose 146 mg/dL Above high normal MEDGEN (St [Mass/volume] Juan C's in Urine [facility], ) collected for unspecified duration Urea nitrogen 41 mg/dL Above high normal MEDGEN ( St [Mass/volume] Juan C's in Serum or Medical, ) Plasma Creatinine 3.05 Above high normal MEDGEN (St [Interpretation mg/dL Juan C's ] in Urine [facility], ) eGFR If 19 Below low normal MEDGEN (St NonAfricn Am mL/min/. 73 [facility], ) eGFR If Africn 22 Below low normal MEDGEN ( St Am mL/min/. 73 [facility], ) BUN/Creatinine 13 Normal (applies MEDGEN (S t Ratio to non-numeric Juan C's results) [facility], ) Sodium 140 Normal (applies MEDGEN (St [Moles/volume] mmol/L to non-numeric Juan C's in Serum or results) [facility], ) Plasma Potassium 4.0 Normal (applies MEDGEN (St [Mass/volume] mmol/L to non-numeric Juan C's in Blood results) [facility], ) Chloride 104 Normal (applies MEDGEN (St [Moles/volume] mmol/L to non-numeric Juan C's in Serum or results) [facility], ) Plasma Carbon dioxide, 21 mmol/L Normal (applies MEDGEN ( St total to non-numeric Juan C's [Moles/volume] results) [facility], ) in Serum or Plasma Calcium 9.3 mg/dL Normal (applies MEDGEN (St [Moles/volume] to non-numeric Juan C's in Urine results) [facility], ) collected for unspecified duration ID Date Data Source [id number] 11/17/2019 12:00:00 AM EST [facility] ([facility], ) Name Value Range Interpretation Description Data Sup porting Code Source(s) Document(s ) Glucose 146 mg/dL Above high normal MEDGEN (St [Mass/volume] [place]'s in Urine [facility], ) collected for unspecified duration Urea nitrogen 41 mg/dL Above high normal MEDGEN ( St [Mass/volume] Juan C's in Serum or [facility], ) Plasma Creatinine 3.05 Above high normal MEDGEN (St [Interpretation mg/dL Juan C's ] in Urine [facility], ) eGFR If Africn 22 Below low normal MEDGEN ( St Am mL/min/. 73 [facility], ) eGFR If 19 Below low normal MEDGEN (St NonAfricn Am mL/min/. [facility], ) BUN/Creatinine 13 Normal (applies MEDGEN (S t Ratio to non-numeric Juan C's results) [facility], ) Sodium 140 Normal (applies MEDGEN (St [...] to non-numeric Juan C's in Urine results) [facility], ) collected for unspecified duration ID Date Data Source [id number] 11/17/2019 12:00:00 AM EST [facility] ([facility], ) Name Value Range Interpretation Description Data Sup porting Code Source(s) Document(s ) Glucose 146 mg/dL Above high normal MEDGEN (St [Mass/volume] Juan C's in Urine [facility], ) collected for unspecified duration Urea nitrogen 41 mg/dL Above high normal MEDGEN ( St [Mass/volume] Juan C's in Serum or Medical, ) Plasma Creatinine 3.05 Above high normal MEDGEN (St [Interpretation mg/dL Juan C's ] in Urine [facility], ) eGFR If 19 Below low normal MEDGEN (St NonAfricn Am mL/min/1. Juan C's 73 [facility], ) eGFR If Africn 22 Below low normal MEDGEN ( St Am mL/min/1. Juan C's 73 [facility], ) BUN/Creatinine 13 Normal (applies MEDGEN (S t Ratio to non-numeric Juan C's results) [facility], ) Potassium 4.0 Normal (applies MEDGEN (St [...] to non-numeric Juan C's in Urine results) [facility], ) collected for unspecified duration Carbon dioxide, 21 mmol/L Normal (applies MEDGEN ( St total to non-numeric Juan C's [Moles/volume] results) [facility], ) in Serum or Plasma ID Date Data Source [id number] 11/17/2019 12:00:00 AM EST [facility] ([facility], ) Name Value Range Interpretation Description Data Sup porting Code Source(s) Document(s ) Glucose 146 mg/dL Above high normal MEDGEN (St [Mass/volume] Juan C's in Urine [facility], ) collected for unspecified duration Urea nitrogen 41 mg/dL Above high normal MEDGEN ( St [Mass/volume] Juan C's in Serum or [facility], ) Plasma Creatinine 3.05 Above high normal MEDGEN (St [Interpretation mg/dL Juan C's ] in Urine [facility], ) eGFR If Africn 22 Below low normal MEDGEN ( St Am mL/min/1. Juan C's 73 [facility], ) eGFR If 19 Below low normal MEDGEN (St NonAfricn Am mL/min/1. Juan C's 73 [facility], ) BUN/Creatinine 13 Normal (applies MEDGEN (S t Ratio to non-numeric Juan C's results) [facility], ) Sodium 140 Normal (applies MEDGEN (St [Moles/volume] mmol/L to non-numeric Juan C's in Serum or results) [facility], ) Plasma Potassium 4.0 Normal (applies MEDGEN (St [Mass/volume] mmol/L to non-numeric Juan C's in Blood results) [facility], ) Carbon dioxide, 21 mmol/L Normal (applies MEDGEN ( St total to non-numeric Juan C's [Moles/volume] results) Medical, ) in Serum or Plasma Chloride 104 Normal (applies MEDGEN (St [Moles/volume] mmol/L to non-numeric Juan C's in Serum or results) [facility], ) Plasma Calcium 9.3 mg/dL Normal (applies MEDGEN (St [Moles/volume] to non-numeric Juan C's in Urine results) [facility], ) collected for unspecified duration ID Date Data Source [id number] 09/22/2019 12:00:00 AM EST [facility] ([facility], ) Name Value Range Interpretation Code Description Data Lisa rce(s) Supporting Document(s ) ID Date Data Source [id number] 09/22/2019 12:00:00 AM EST MEDGEN ([facility], ) Name Value Range Interpretation Code Description Data Supporting Source(s) Document(s ) PTH, Intact 14 pg/mL Below low normal [facility] ([facility], ) ID Date Data Source [id number] 09/22/2019 12:00:00 AM EST MEDGEN ([facility], ) Name Value Range Interpretation Code Description Data Supporting Source(s) Document(s ) Ferritin, 329 ng/mL Normal (applies to MEDGEN (St Serum non-numeric Juan C's results) [facility], ) ID Date Data Source [id number] 09/22/2019 12:00:00 AM EST MEDGEN ([facility], ) Name Value Range Interpretation Description Data Sup porting Code Source(s) Document(s ) Deprecated 4.8 mg/dL Above high normal MEDGEN (St Phosphorus Juan C's [Mass/time] in [facility], ) 24 hour Urine ID Date Data Source [id number] 09/22/2019 12:00:00 AM EST MEDGEN ([facility], ) Name Value Range Interpretation Code Description Data Lisa rce(s) Supporting Document(s ) RAGINI Normal (applies to MEDGEN (St Interpreta non-numeric results) Juan C's edical, tion:U ) ID Date Data Source [id number] 09/22/2019 12:00:00 AM EST MEDGEN ([facility], ) Name Value Range Interpretation Description Data Sup porting Code Source(s) Document(s ) Vitamin D, 36.2 Normal (applies to MEDGEN (St 25-Hydroxy ng/mL non-numeric Juan C's results) [facility], ) ID Date Data Source [id number] 09/22/2019 12:00:00 AM EST MEDGEN ([facility], ) Name Value Range Interpretation Code Description Data Supporting Source(s) Document(s ) Albumin, 693.2 Normal (applies to MEDGEN (St Urine ug/mL non-numeric Juan C's results) [facility], ) Alb/Creat 394.1 mg/g Above high normal MEDGEN (St Ratio creat [facility], ) ID Date Data Source [id number] 09/22/2019 12:00:00 AM EST MEDGEN ([facility], ) Name Value Range Interpretation Description Data Sup porting Code Source(s) Document(s ) Free Ecorse 476.00 Above high normal MEDGEN (St Lt mg/L Juan C's [facility], ) Free Lambda 44.50 mg/L Above high normal MEDGEN (S t Lt Juan C's [facility],Ur [facility], ) Ecorse/Lambd 10.70 Above high normal MEDGEN (St a Ratio,U [facility], ) ID Date Data Source [id number] 09/22/2019 12:00:00 AM EST MEDGEN ([facility], ) Name Value Range Interpretation Description Data Sup porting Code Source(s) Document(s ) Free Ecorse 38.9 mg/L Above high normal MEDGEN (St Lt Chains,S [facility], ) Free Lambda 133.0 mg/L Above high normal MEDGEN (S t Lt Chains,[facility], ) Ecorse/Lambd 0.29 Normal (applies to MEDGEN (S t a Ratio,S non-numeric Juan C's results) [facility], ) ID Date Data Source [id number] 09/22/2019 12:00:00 AM EST MEDGEN ([facility], ) Name Value Range Interpretation Code Description Data Supporting Source(s) Document(s ) Creatinine 175.9 Normal (applies to MEDGEN (St , Urine mg/dL non-numeric Juan C's results) [facility], ) Protein/Cr 833 mg/g Above high normal MEDGEN (St eat Ratio creat [facility], ) ID Date Data Source [id number] 09/22/2019 12:00:00 AM EST MEDGEN ([facility], ) Name Value Range Interpretation Description Data Sup porting Code Source(s) Document(s ) Immunofixation Normal (applies MEDGEN (S t Result, Serum to non-numeric Juan C's results) [facility]) Immunoglobulin G, 3973 Above high normal MEDG EN (St Qn, Serum mg/dL [facility]) Immunoglobulin M, 13 mg/dL Below low normal MEDGE N (St Qn, Serum [facility]) Immunoglobulin A, 25 mg/dL Below low normal MEDGE N (St Qn, Serum Juan C's [facility], ) ID Date Data Source [id number] 09/22/2019 12:00:00 AM EST MEDGEN ([facility], ) Name Value Range Interpretation Description Data Sup porting Code Source(s) Document(s ) Iron 297 ug/dL Normal (applies to MEDGEN (St Bind.Cap.(TIBC non-numeric Juan C's ) results) [facility], ) UIBC 222 ug/dL Normal (applies to MEDGEN (St non-numeric Juan C's results) [facility], ) Iron 75 ug/dL Normal (applies to MEDGEN (St [Mass/volume] non-numeric Juan C's in Serum or results) [facility], ) Plasma Iron 25 % Normal (applies to MEDGEN (St saturation non-numeric Juan C's [Mass results) [facility], ) Fraction] in Serum or Plasma ID Date Data Source [id number] 09/22/2019 12:00:00 AM EST MEDGEN ([facility], ) Name Value Range Interpretation Description Data Sup porting Code Source(s) Document(s ) Protein,Tot 146.6 Normal (applies to MEDGEN (S t al,Urine mg/dL non-numeric Juan C's results) [facility], ) Albumin, U 47.8 % Normal (applies to MEDGEN (St non-numeric Juan C's results) [facility], ) Alpha-1-Nadine 3.5 % Normal (applies to MEDGEN (S t bulin, U non-numeric Juan C's results) [facility], ) Alpha-2-Nadine 9.6 % Normal (applies to MEDGEN (S t bulin, U non-numeric Juan C's results) [facility], ) Beta 24.4 % Normal (applies to MEDGEN (St Globulin, U non-numeric Juan C's results) [facility], ) Gamma 14.8 % Normal (applies to MEDGEN (St Globulin, U non-numeric Juan C's results) [facility], ) M-Kevyn, % 9.8 % Above high normal [facility] ([facility], ) Please Normal (applies to MEDGEN (St note: non-numeric Juan C's results) [facility], ) PDF . Normal (applies to MEDGEN (St non-numeric Juan C's results) [facility], ) ID Date Data Source [id number] 09/22/2019 12:00:00 AM EST [facility] ([facility], ) Name Value Range Interpretation Description Data Sup porting Code Source(s) Document(s ) Protein 9.0 g/dL Above high normal MEDGEN (St [Mass/volume] in Juan C's Serum or Plasma Medical, ) Ytrpf-1-Emdhvlsv 0.2 g/dL Normal (applies MEDGEN (St to non-numeric Juan C's results) Medical, PC) Microalbumin 4.0 g/dL Normal (applies MEDGEN (St [Mass/time] in to non-numeric Juan C's Urine collected results) Medical, for unspecified PC) duration Akwko-5-Jyvqsfbi 0.8 g/dL Normal (applies MEDGEN (St to non-numeric Juan C's results) [facility], PC) Beta globulin 0.8 g/dL Normal (applies MEDGEN (St [Mass/volume] in to non-numeric Juan C's Urine by results) Medical, Electrophoresis PC) Gamma globulin 3.2 g/dL Above high normal MEDGEN (St [Mass/volume] by Juan C's Electrophoresis in Medical, Urine collected PC) for unspecified duration M-Kevyn 2.9 g/dL Above high normal [facility] ([facility], ) Globulin, Total 5.0 g/dL Above high normal [facility]GEN ([facility], ) A/G Ratio 0.8 Normal (applies MEDGEN (St to non-numeric Juan C's results) Medical, PC) Please note: Normal (applies MEDGEN (St to non-numeric Juan C's results) [facility], PC) PDF . Normal (applies MEDGEN (St to non-numeric Juan C's results) [facility], PC) ID Date Data Source [id number] 09/22/2019 12:00:00 AM EST MEDGEN ([facility] [...] to non-numeric Juan C's Urine collected results) [facility], for unspecified PC) duration Protein Abnormal MEDGEN [...] results) Medical, ) ID Date Data Source [id number] 09/22/2019 12:00:00 AM EST MEDGEN (St [facility] [...] MEDGEN (St to non-numeric Juan C's results) [facility], ) Crystal Type Calcium Normal (applies MEDGEN (St Oxalate to non-numeric Juan C's results) [facility]) Bacteria Few Normal (applies MEDGEN (St [Presence] in to non-numeric Juan C's Prostatic results) [facility]) fluid by Light microscopy ID Date Data Source [id number] 09/22/2019 12:00:00 AM EST [facility]GEN ([facility], ) Name Value Range Interpretation Description Data Sup porting Code Source(s) Document(s ) Leukocytes 9.5 Normal (applies MEDGEN (St [#/volume] in x10E3/uL to non-numeric Juan C's Blood by results) [facility], ) Automated count Hemoglobin 10.9 Below low normal MEDGEN (St [Mass/volume] in g/dL Juan C's Blood [facility]) Erythrocytes 3.28 Below low normal MEDGEN (St [#/volume] in x10E6/uL Juan C's Blood by [facility], ) Automated count Hematocrit 32.1 % Below low normal MEDGEN (St [Volume Juan C's Fraction] of [facility], ) Blood by Automated count MCV 98 fL Above high normal MEDGEN ([facility], ) MCH 33.2 pg Above high normal MEDGEN ([facility], ) MCHC 34.0 Normal (applies MEDGEN (St g/dL to non-numeric Juan C's results) [facility]) RDW 17.3 % Above high normal MEDGEN ([facility], ) Neutrophils [#] 53 % Normal (applies MEDGEN ( St in Body fluid by to non-numeric Juan C's Manual count results) [facility], ) Platelets 240 Normal (applies MEDGEN (St [#/area] in x10E3/uL to non-numeric Juan C's Blood by results) [facility]) Microscopy high power field Lymphs 19 % Normal (applies MEDGEN (St to non-numeric Juan C's results) [facility]) Monocytes 15 % Normal (applies MEDGEN (St [#/volume] in to non-numeric Juan C's Cord blood results) [facility]) Eos 11 % Normal (applies MEDGEN (St to non-numeric Juan C's results) [facility]) Basos 0 % Normal (applies MEDGEN (St to non-numeric Juan C's results) Medical, ) Lymphs 1.8 Normal (applies MEDGEN (St (Absolute) x10E3/uL to non-numeric Juan C's results) Medical, ) Neutrophils 5.1 Normal (applies MEDGEN (St (Absolute) x10E3/uL to non-numeric Juan C's results) Medical, ) Monocytes(Absolu 1.5 Above high normal MEDGE N (St te) x10E3/uL [facility], ) Eos (Absolute) 1.0 Above high normal MEDGEN (St x10E3/uL [facility], ) Immature 2 % Normal (applies [...] results) Medical, ) ID Date Data Source [id number] 09/22/2019 12:00:00 AM EST [facility] ([facility], ) Name Value Range Interpretation Code Description Data Lisa rce(s) Supporting Document(s ) ID Date Data Source [id number] 09/22/2019 12:00:00 AM EST [facility] ([facility], ) Name Value Range Interpretation Code Description Data Supporting Source(s) Document(s ) PTH, Intact 14 pg/mL Below low normal [facility] ([facility], ) ID Date Data Source [id number] 09/22/2019 12:00:00 AM EST [facility] ([facility], ) Name Value Range Interpretation Code Description Data Supporting Source(s) Document(s ) Ferritin, 329 ng/mL Normal (applies to MEDGEN (St Serum non-numeric Juan C's results) Medical, ) ID Date Data Source [id number] 09/22/2019 12:00:00 AM EST [facility] ([facility], ) Name Value Range Interpretation Description Data Sup porting Code Source(s) Document(s ) Deprecated 4.8 mg/dL Above high normal MEDGEN (St Phosphorus Juan C's [Mass/time] in Medical, ) 24 hour Urine ID Date Data Source [id number] 09/22/2019 12:00:00 AM EST [facility] ([facility], ) Name Value Range Interpretation Code Description Data Lisa rce(s) Supporting Document(s ) RAGINI Normal (applies to MEDGEN (St Interpreta non-numeric results) Juan C's M edical, tion:U PC) ID Date Data Source [id number] 09/22/2019 12:00:00 AM EST MEDGEN ([facility], ) Name Value Range Interpretation Description Data Sup porting Code Source(s) Document(s ) Vitamin D, 36.2 Normal (applies to MEDGEN (St 25-Hydroxy ng/mL non-numeric Juan C's results) [facility], ) ID Date Data Source [id number] 09/22/2019 12:00:00 AM EST [facility]GEN ([facility], ) Name Value Range Interpretation Code Description Data Supporting Source(s) Document(s ) Albumin, 693.2 Normal (applies to MEDGEN (St Urine ug/mL non-numeric Juan C's results) [facility], ) Alb/Creat 394.1 mg/g Above high normal MEDGEN (St Ratio creat [facility], ) ID Date Data Source [id number] 09/22/2019 12:00:00 AM EST MEDGEN ([facility], ) Name Value Range Interpretation Description Data Sup porting Code Source(s) Document(s ) Free Ecorse 476.00 Above high normal MEDGEN (St Lt mg/L Juan C's Chains,[facility], ) Free Lambda 44.50 mg/L Above high normal MEDGEN (S t Lt Juan C's Chains,[facility], ) Ecorse/Lambd 10.70 Above high normal MEDGEN (St a Ratio,U [facility], ) ID Date Data Source [id number] 09/22/2019 12:00:00 AM EST MEDGEN ([facility], ) Name Value Range Interpretation Description Data Sup porting Code Source(s) Document(s ) Free Ecorse 38.9 mg/L Above high normal MEDGEN (St Lt Chains,S [facility], ) Free Lambda 133.0 mg/L Above high normal MEDGEN (S t Lt Chains,S [facility]) Ecorse/Lambd 0.29 Normal (applies to MEDGEN (S t a Ratio,S non-numeric Juan C's results) [facility]) ID Date Data Source [id number] 09/22/2019 12:00:00 AM EST MEDGEN ([facility]) Name Value Range Interpretation Code Description Data Supporting Source(s) Document(s ) Creatinine 175.9 Normal (applies to MEDGEN (St , Urine mg/dL non-numeric Juan C's results) [facility]) Protein/Cr 833 mg/g Above high normal MEDGEN (St eat Ratio creat [facility]) ID Date Data Source [id number] 09/22/2019 12:00:00 AM EST MEDGEN ([facility]) Name Value Range Interpretation Description Data Sup porting Code Source(s) Document(s ) Immunofixation Normal (applies MEDGEN (S t Result, Serum to non-numeric [facility] results) [facility]) Immunoglobulin A, 25 mg/dL Below low normal MEDGE N (St Qn, Serum [facility]) Immunoglobulin G, 3973 Above high normal MEDG EN (St Qn, Serum mg/dL [facility]) Immunoglobulin M, 13 mg/dL Below low normal MEDGE N (St Qn, Serum [facility]) ID Date Data Source [id number] 09/22/2019 12:00:00 AM EST MEDGEN ([facility]) Name Value Range Interpretation Description Data Sup porting Code Source(s) Document(s ) Protein,Tot 146.6 Normal (applies to MEDGEN (S t al,Urine mg/dL non-numeric Juan C's results) [facility]) Albumin, U 47.8 % Normal (applies to MEDGEN (St non-numeric Juan C's results) [facility]) Alpha-1-Nadine 3.5 % Normal (applies to MEDGEN (S t bulin, U non-numeric Juan C's results) [facility]) Alpha-2-Nadine 9.6 % Normal (applies to MEDGEN (S t bulin, U non-numeric Juan C's results) [facility]) Beta 24.4 % Normal (applies to MEDGEN (St Globulin, U non-numeric Juan C's results) [facility]) Gamma 14.8 % Normal (applies to MEDGEN (St Globulin, U non-numeric Juan C's results) Medical, PC) M-Kevyn, % 9.8 % Above high normal [facility]GEN ([facility], ) Please Normal (applies to MEDGEN (St note: non-numeric Juan C's results) Medical, PC) PDF . Normal (applies to MEDGEN (St non-numeric Juan C's results) Medical, PC) ID Date Data Source [id number] 09/22/2019 12:00:00 AM EST [facility] ([facility], ) Name Value Range Interpretation Description Data Sup porting Code Source(s) Document(s ) Protein 9.0 g/dL Above high normal MEDGEN (St [Mass/volume] in Juan C's Serum or Plasma Medical, ) Microalbumin 4.0 g/dL Normal (applies MEDGEN (St [Mass/time] in to non-numeric Juan C's Urine collected results) Medical, for unspecified PC) duration Guegn-1-Zllxnies 0.2 g/dL Normal (applies MEDGEN (St to non-numeric Juan C's results) Medical, PC) Wzrbk-8-Klccqvir 0.8 g/dL Normal (applies MEDGEN (St to [...] Above high normal MEDGEN ([facility], [facility]) M-Kevyn 2.9 g/dL Above high normal MEDGEN ([facility], ) A/G Ratio 0.8 Normal (applies MEDGEN (St to non-numeric Juan C's results) Medical, PC) Please note: Normal (applies MEDGEN (St to non-numeric Juan C's results) Medical, ) PDF . Normal (applies MEDGEN (St to non-numeric Juan C's results) Medical, ) ID Date Data Source [id number] 09/22/2019 12:00:00 AM EST MEDGEN ([facility] [...] results) Medical, PC) ID Date Data Source [id number] 09/22/2019 12:00:00 AM EST MEDGEN ([facility] [...] in to non-numeric Juan C's Urine results) [facility], ) sediment by Automated count Cast Type Granular Abnormal (applies MEDGEN (St casts to non-numeric Juan C's results) [facility], ) Crystals Present Abnormal (applies MEDGEN (St [#/area] in to non-numeric Juan C's Body fluid by results) [facility], ) Light microscopy Crystal Type Calcium Normal (applies MEDGEN (St Oxalate to non-numeric Juan C's results) [facility], ) Mucus Threads Present Normal (applies MEDGEN (St to non-numeric Juan C's results) [facility], ) Bacteria Few Normal (applies MEDGEN (St [Presence] in to non-numeric Juan C's Prostatic results) [facility], ) fluid by Light microscopy ID Date Data Source [id number] 09/22/2019 12:00:00 AM EST MEDGEN ([facility], ) Name Value Range Interpretation Description Data Sup porting Code Source(s) Document(s ) Leukocytes 9.5 Normal (applies MEDGEN (St [#/volume] in x10E3/uL to non-numeric Juan C's Blood by results) [facility], ) Automated count Erythrocytes 3.28 Below low normal MEDGEN (St [#/volume] in x10E6/uL Juan C's Blood by [facility], ) Automated count Hemoglobin 10.9 Below low normal MEDGEN (St [Mass/volume] in g/dL Juan C's Blood [facility], ) Hematocrit 32.1 % Below low normal MEDGEN (St [Volume Juan C's Fraction] of [facility], ) Blood by Automated count MCV 98 fL Above high normal MEDGEN ([facility], ) MCH 33.2 pg Above high normal MEDGEN ([facility], ) MCHC 34.0 Normal (applies MEDGEN (St g/dL to non-numeric Juan C's results) [facility], ) RDW 17.3 % Above high normal MEDGEN ([facility], ) Neutrophils [#] 53 % Normal (applies MEDGEN ( St in Body fluid by to non-numeric Juan C's Manual count results) [facility], ) Platelets 240 Normal (applies MEDGEN (St [#/area] in x10E3/uL to non-numeric Juan C's Blood by results) [facility]) Microscopy high power field Lymphs 19 % Normal (applies MEDGEN (St to non-numeric Juan C's results) [facility], ) Monocytes 15 % Normal (applies MEDGEN (St [#/volume] in to non-numeric Juan C's Cord blood results) [facility], ) Eos 11 % Normal (applies MEDGEN (St to non-numeric Juan C's results) [facility], ) Basos 0 % Normal (applies MEDGEN (St to non-numeric Juan C's results) [facility], ) Neutrophils 5.1 Normal (applies MEDGEN (St (Absolute) x10E3/uL to non-numeric Juan C's results) [facility], ) Lymphs 1.8 Normal (applies MEDGEN (St (Absolute) x10E3/uL to non-numeric Juan C's results) [facility], ) Monocytes(Absolu 1.5 Above high normal MEDGE N (St te) x10E3/uL [facility], ) Eos (Absolute) 1.0 Above high normal MEDGEN (St x10E3/uL [facility], ) Baso (Absolute) 0.0 Normal (applies MEDGEN ( St x10E3/uL to non-numeric Juan C's results) [facility], ) Immature 2 % Normal (applies MEDGEN (St Granulocytes to non-numeric Juan C's results) [facility], ) Immature Grans 0.2 Above high normal MEDGEN (St (Abs) x10E3/uL [facility], ) Hematology Note: Normal (applies MEDGEN (St Comments: to non-numeric Juan C's results) [facility], ) ID Date Data Source [id number] 09/22/2019 12:00:00 AM EST [facility]GEN ([facility], ) Name Value Range Interpretation Code Description Data Lisa rce(s) Supporting Document(s ) ID Date Data Source [id number] 09/22/2019 12:00:00 AM EST MEDGEN ([facility], ) Name Value Range Interpretation Code Description Data Supporting Source(s) Document(s ) PTH, Intact 14 pg/mL Below low normal MEDGEN ([facility], ) ID Date Data Source [id number] 09/22/2019 12:00:00 AM EST MEDGEN ([facility], ) Name Value Range Interpretation Code Description Data Supporting Source(s) Document(s ) Ferritin, 329 ng/mL Normal (applies to MEDGEN (St Serum non-numeric Juan C's results) [facility], ) ID Date Data Source [id number] 09/22/2019 12:00:00 AM EST MEDGEN ([facility], ) Name Value Range Interpretation Description Data Sup porting Code Source(s) Document(s ) Deprecated 4.8 mg/dL Above high normal MEDGEN (St Phosphorus Juan C's [Mass/time] in [facility], ) 24 hour Urine ID Date Data Source [id number] 09/22/2019 12:00:00 AM EST [facility]GEN ([facility], ) Name Value Range Interpretation Code Description Data Lisa rce(s) Supporting Document(s ) ID Date Data Source [id number] 09/22/2019 12:00:00 AM EST MEDGEN ([facility], ) Name Value Range Interpretation Description Data Sup porting Code Source(s) Document(s ) Vitamin D, 36.2 Normal (applies to MEDGEN (St 25-Hydroxy ng/mL non-numeric Juan C's results) [facility], ) ID Date Data Source [id number] 09/22/2019 12:00:00 AM EST MEDGEN ([facility], ) Name Value Range Interpretation Code Description Data Supporting Source(s) Document(s ) Albumin, 693.2 Normal (applies to MEDGEN (St Urine ug/mL non-numeric Juan C's results) [facility], ) Alb/Creat 394.1 mg/g Above high normal MEDGEN (St Ratio creat [facility], ) ID Date Data Source [id number] 09/22/2019 12:00:00 AM EST MEDGEN ([facility], ) Name Value Range Interpretation Description Data Sup porting Code Source(s) Document(s ) Free Ecorse 476.00 Above high normal MEDGEN (St Lt mg/L Juan C's Chains,[facility], ) Free Lambda 44.50 mg/L Above high normal MEDGEN (S t Lt Juan C's Chains,[facility], ) Ecorse/Lambd 10.70 Above high normal MEDGEN (St a Ratio,U [facility], ) ID Date Data Source [id number] 09/22/2019 12:00:00 AM EST MEDGEN ([facility], ) Name Value Range Interpretation Description Data Sup porting Code Source(s) Document(s ) Free [place]corse 38.9 mg/L Above high normal MEDGEN (St Lt Chains,S [facility]) Free Lambda 133.0 mg/L Above high normal MEDGEN (S t Lt Chains,S [facility]) Ecorse/Lambd 0.29 Normal (applies to MEDGEN (S t a Ratio,S non-numeric [facility]'s results) [facility]) ID Date Data Source [id number] 09/22/2019 12:00:00 AM EST MEDGEN ([facility], ) Name Value Range Interpretation Code Description Data Supporting Source(s) Document(s ) Creatinine 175.9 Normal (applies to MEDGEN (St , Urine mg/dL non-numeric Juan C's results) [facility]) Protein/Cr 833 mg/g Above high normal MEDGEN (St eat Ratio creat [facility]) ID Date Data Source [id number] 09/22/2019 12:00:00 AM EST MEDGEN ([facility]) Name Value Range Interpretation Description Data Sup porting Code Source(s) Document(s ) Immunoglobulin A, 25 mg/dL Below low normal MEDGE N (St Qn, Serum [facility]) Immunoglobulin G, 3973 Above high normal MEDG EN (St Qn, Serum mg/dL [facility]) Immunoglobulin M, 13 mg/dL Below low normal MEDGE N (St Qn, Serum [facility]) ID Date Data Source [id number] 09/22/2019 12:00:00 AM EST MEDGEN ([facility]) Name Value Range Interpretation Description Data Sup porting Code Source(s) Document(s ) Iron 297 ug/dL Normal (applies to MEDGEN (St Bind.Cap.(TIBC non-numeric Juan C's ) results) [facility]) UIBC 222 ug/dL Normal (applies to MEDGEN (St non-numeric Juan C's results) [facility]) Iron 75 ug/dL Normal (applies to MEDGEN (St [Mass/volume] non-numeric Juan C's in Serum or results) [facility]) Plasma Iron 25 % Normal (applies to MEDGEN (St saturation non-numeric Juan C's [Mass results) [facility], ) Fraction] in Serum or Plasma ID Date Data Source [id number] 09/22/2019 12:00:00 AM EST MEDGEN ([facility], ) Name Value Range Interpretation Code [...] (St Globulin, non-numeric Juan C's U results) [facility], ) M-Kevyn, % 9.8 % Above high normal MEDGEN ([facility], ) PDF . Normal (applies to MEDGEN (St non-numeric Juan C's results) [facility], ) ID Date Data Source [id number] 09/22/2019 12:00:00 AM EST MEDGEN ([facility], ) Name Value Range Interpretation Description Data Sup porting Code Source(s) Document(s ) Protein 9.0 g/dL Above high normal MEDGEN (St [Mass/volume] in Juan C's Serum or Plasma [facility], ) Hlgqs-8-Ipjomlkr 0.2 g/dL Normal (applies MEDGEN (St to non-numeric Juan C's results) [facility], ) Microalbumin 4.0 g/dL Normal (applies MEDGEN (St [Mass/time] in to non-numeric Juan C's Urine collected results) [facility], for unspecified PC) duration Ngmop-7-Alvhryjh 0.8 g/dL Normal (applies MEDGEN (St to non-numeric Juan C's results) [facility], ) Gamma globulin 3.2 g/dL Above high normal MEDGEN (St [Mass/volume] by Juan C's Electrophoresis in Medical, Urine collected PC) for unspecified duration Beta globulin 0.8 g/dL Normal (applies MEDGEN (St [Mass/volume] in to non-numeric Juan C's Urine by results) Medical, Electrophoresis PC) M-Kevyn 2.9 g/dL Above high normal MEDGEN ([facility], ) Globulin, Total 5.0 g/dL Above high normal MEDGEN ([facility], ) A/G Ratio 0.8 Normal (applies MEDGEN (St to non-numeric Juan C's results) [facility], ) PDF . Normal (applies MEDGEN (St to non-numeric Juan C's results) [facility], ) ID Date Data Source [id number] 09/22/2019 12:00:00 AM EST MEDGEN ([facility], ) Name Value Range Interpretation Description [...] (S t to non-numeric Juan C's results) [facility], ) Microscopic See below: Normal (applies MEDGEN (St Examination to non-numeric Juan C's results) [facility], ) ID Date Data Source [id number] 09/22/2019 12:00:00 AM EST MEDGEN ([facility], ) Name Value Range Interpretation Description Data Sup porting Code Source(s) Document(s ) WBC 0-5 Normal (applies MEDGEN (St to non-numeric Juan C's results) [facility], ) RBC 0-2 Normal (applies MEDGEN (St to non-numeric Juan C's results) [facility], ) Casts Present Abnormal (applies MEDGEN (St [#/area] in to non-numeric Juan C's Urine results) [facility], ) sediment by Automated count Epithelial None seen Normal (applies MEDGEN (St Cells (non to non-numeric Juan C's renal) results) [facility], ) Cast Type Granular Abnormal (applies MEDGEN (St casts to non-numeric Juan C's results) [facility], ) Crystals Present Abnormal (applies MEDGEN (St [#/area] in to non-numeric Juan C's Body fluid by results) [facility], ) Light microscopy Crystal Type Calcium Normal (applies MEDGEN (St Oxalate to non-numeric Juan C's results) [facility], ) Mucus Threads Present Normal (applies MEDGEN (St to non-numeric Juan C's results) [facility], ) Bacteria Few Normal (applies MEDGEN (St [Presence] in to non-numeric Juan C's Prostatic results) [facility], ) fluid by Light microscopy ID Date Data Source [id number] 09/22/2019 12:00:00 AM EST [facility], ) Name Value Range Interpretation Description Data Sup porting Code Source(s) Document(s ) Leukocytes 9.5 Normal (applies MEDGEN (St [#/volume] in x10E3/uL to non-numeric Juan C's Blood by results) [facility], ) Automated count Hemoglobin 10.9 Below low normal MEDGEN (St [Mass/volume] in g/dL Juan C's Blood [facility], ) Erythrocytes 3.28 Below low normal MEDGEN (St [#/volume] in x10E6/uL Juan C's Blood by [facility], ) Automated count Hematocrit 32.1 % Below low normal MEDGEN (St [Volume Juan C's Fraction] of [facility]) Blood by Automated count MCV 98 fL Above high normal [facility]GEN ([facility]) MCH 33.2 pg Above high normal MEDGEN ([facility]) RDW 17.3 % Above high normal MEDGEN ([facility]) MCHC 34.0 Normal (applies MEDGEN (St g/dL to non-numeric Juan C's results) [facility]) Platelets 240 Normal (applies MEDGEN (St [#/area] in x10E3/uL to non-numeric Juan C's Blood by results) [facility]) Microscopy high power field Neutrophils [#] 53 % Normal (applies MEDGEN ( St in Body fluid by to non-numeric Juan C's Manual count results) [facility]) Lymphs 19 % Normal (applies MEDGEN (St to non-numeric Juan C's results) [facility]) Monocytes 15 % Normal (applies MEDGEN (St [#/volume] in to non-numeric Juan C's Cord blood results) [facility]) Basos 0 % Normal (applies MEDGEN (St to non-numeric Juan C's results) [facility]) Eos 11 % Normal (applies MEDGEN (St to non-numeric Juan C's results) [facility]) Neutrophils 5.1 Normal (applies MEDGEN (St (Absolute) x10E3/uL to non-numeric Juan C's results) [facility]) Lymphs 1.8 Normal (applies MEDGEN (St (Absolute) x10E3/uL to non-numeric Juan C's results) [facility]) Monocytes(Absolu 1.5 Above high normal MEDGE N (St te) x10E3/uL [facility]) Eos (Absolute) 1.0 Above high normal MEDGEN (St x10E3/uL [facility]) Baso (Absolute) 0.0 Normal (applies MEDGEN ( St x10E3/uL to non-numeric Juan C's results) [facility]) Immature 2 % Normal (applies MEDGEN (St Granulocytes to non-numeric Juan C's results) [facility]) Immature Grans 0.2 Above high normal MEDGEN (St (Abs) x10E3/uL [facility]) Hematology Note: Normal (applies MEDGEN (St Comments: to non-numeric Juan C's results) [facility] ) ID Date Data Source [id number] 09/22/2019 12:00:00 AM EST [facility] ([facility], ) Name Value Range Interpretation Code Description Data Lisa rce(s) Supporting Document(s ) ID Date Data Source [id number] 09/22/2019 12:00:00 AM EST [facility] ([facility], ) Name Value Range Interpretation Code Description Data Supporting Source(s) Document(s ) PTH, Intact 14 pg/mL Below low normal [facility] ([facility]) ID Date Data Source [id number] 09/22/2019 12:00:00 AM EST [facility] ([facility], ) Name Value Range Interpretation Code Description Data Supporting Source(s) Document(s ) Ferritin, 329 ng/mL Normal (applies to MEDGEN (St Serum non-numeric Juan C's results) [facility], ) ID Date Data Source [id number] 09/22/2019 12:00:00 AM EST [facility] ([facility], ) Name Value Range Interpretation Description Data Sup porting Code Source(s) Document(s ) Deprecated 4.8 mg/dL Above high normal MEDGEN (St Phosphorus Juan C's [Mass/time] in Medical, ) 24 hour Urine ID Date Data Source [id number] 09/22/2019 12:00:00 AM EST [facility] ([facility], ) Name Value Range Interpretation Code Description Data Lisa rce(s) Supporting Document(s ) RAGINI Normal (applies to MEDGEN (St Interpreta non-numeric results) Juan [facility]'s M edical, tion:U ) ID Date Data Source [id number] 09/22/2019 12:00:00 AM EST [facility] ([facility], ) Name Value Range Interpretation Description Data Sup porting Code Source(s) Document(s ) Vitamin D, 36.2 Normal (applies to MEDGEN (St 25-Hydroxy ng/mL non-numeric Juan C's results) Medical, ) ID Date Data Source [id number] 09/22/2019 12:00:00 AM EST [facility]GEN ([facility], ) Name Value Range Interpretation Code Description Data Supporting Source(s) Document(s ) Albumin, 693.2 Normal (applies to MEDGEN (St Urine ug/mL non-numeric Juan C's results) [facility], ) Alb/Creat 394.1 mg/g Above high normal MEDGEN (St Ratio creat [facility], ) ID Date Data Source [id number] 09/22/2019 12:00:00 AM EST MEDGEN ([facility], ) Name Value Range Interpretation Description Data Sup porting Code Source(s) Document(s ) Free Ecorse 476.00 Above high normal MEDGEN (St Lt mg/L Juan C's Chains,[facility], ) Free Lambda 44.50 mg/L Above high normal MEDGEN (S t Lt Juan C's Chains,Ur [facility], ) Ecorse/Lambd 10.70 Above high normal MEDGEN (St a Ratio,U [facility], ) ID Date Data Source [id number] 09/22/2019 12:00:00 AM EST MEDGEN ([facility], ) Name Value Range Interpretation Description Data Sup porting Code Source(s) Document(s ) Free Ecorse 38.9 mg/L Above high normal MEDGEN (St Lt Chains,S Juan C's [facility], ) Free Lambda 133.0 mg/L Above high normal MEDGEN (S t Lt Chains,S [facility], ) Ecorse/Lambd 0.29 Normal (applies to MEDGEN (S t a Ratio,S non-numeric Juan C's results) [facility], ) ID Date Data Source [id number] 09/22/2019 12:00:00 AM EST MEDGEN ([facility], ) Name Value Range Interpretation Code Description Data Supporting Source(s) Document(s ) Creatinine 175.9 Normal (applies to MEDGEN (St , Urine mg/dL non-numeric Juan C's results) [facility], ) Protein/Cr 833 mg/g Above high normal MEDGEN (St eat Ratio creat [facility], ) ID Date Data Source [id number] 09/22/2019 12:00:00 AM EST MEDGEN ([facility], ) Name Value Range Interpretation Description Data Sup porting Code Source(s) Document(s ) Immunofixation Normal (applies MEDGEN (S t Result, Serum to non-numeric Juan C's results) [facility], ) Immunoglobulin G, 3973 Above high normal MEDG EN (St Qn, Serum mg/dL [facility]) Immunoglobulin A, 25 mg/dL Below low normal MEDGE N (St Qn, Serum Juan C's [facility]) Immunoglobulin M, 13 mg/dL Below low normal MEDGE N (St Qn, Serum [facility]) ID Date Data Source [id number] 09/22/2019 12:00:00 AM EST MEDGEN ([facility]) Name Value Range Interpretation Description Data Sup porting Code Source(s) Document(s ) Iron 297 ug/dL Normal (applies to MEDGEN (St Bind.Cap.(TIBC non-numeric Juan C's ) results) [facility]) UIBC 222 ug/dL Normal (applies to MEDGEN (St non-numeric Juan C's results) [facility]) Iron 75 ug/dL Normal (applies to MEDGEN (St [Mass/volume] non-numeric Juan C's in Serum or results) [facility]) Plasma Iron 25 % Normal (applies to MEDGEN (St saturation non-numeric Juan C's [Mass results) [facility]) Fraction] in Serum or Plasma ID Date Data Source [id number] 09/22/2019 12:00:00 AM EST MEDGEN ([facility], ) Name Value Range Interpretation Description Data Sup porting Code Source(s) Document(s ) Protein,Tot 146.6 Normal (applies to MEDGEN (S t al,Urine mg/dL non-numeric Juan C's results) [facility], ) Albumin, U 47.8 % Normal (applies to MEDGEN (St non-numeric Juan C's results) [facility], ) Alpha-2-Nadine 9.6 % Normal (applies to MEDGEN (S t bulin, U non-numeric Juan C's results) [facility]) Alpha-1-Nadine 3.5 % Normal (applies to MEDGEN (S t bulin, U non-numeric Juan C's results) [facility]) Beta 24.4 % Normal (applies to MEDGEN (St Globulin, U non-numeric Juan C's results) [facility]) Gamma 14.8 % Normal (applies to MEDGEN (St Globulin, U non-numeric Juan C's results) [facility]) M-Kevyn, % 9.8 % Above high normal [facility]GEN ([facility], ) Please Normal (applies to MEDGEN (St note: non-numeric Juan C's results) Medical, ) PDF . Normal (applies to MEDGEN (St non-numeric Juan C's results) [facility], ) ID Date Data Source [id number] 09/22/2019 12:00:00 AM EST [facility]GEN ([facility], ) Name Value Range Interpretation Description Data Sup porting Code Source(s) Document(s ) Protein 9.0 g/dL Above high normal MEDGEN (St [Mass/volume] in Juan C's Serum or Plasma Medical, ) Microalbumin 4.0 g/dL Normal (applies MEDGEN (St [Mass/time] in to non-numeric Juan C's Urine collected results) Medical, for unspecified PC) duration Lftqz-0-Jqpzxjyp 0.2 g/dL Normal (applies MEDGEN (St to non-numeric Juan C's results) [facility], ) Rfpzk-0-Bvcwmhcq 0.8 g/dL Normal (applies MEDGEN (St to non-numeric Juan C's results) Medical, PC) Beta globulin 0.8 g/dL Normal (applies MEDGEN (St [Mass/volume] in to non-numeric Juan C's Urine by results) Medical, Electrophoresis PC) Gamma globulin 3.2 g/dL Above high normal MEDGEN (St [Mass/volume] by Juan C's Electrophoresis in Medical, Urine collected PC) for unspecified duration M-Kevyn 2.9 g/dL Above high normal MEDGEN ([facility], ) Globulin, Total 5.0 g/dL Above high normal MEDGEN ([facility], ) A/G Ratio 0.8 Normal (applies MEDGEN (St to non-numeric Juan C's results) Medical, ) Please note: Normal (applies MEDGEN (St to non-numeric Juan C's results) Medical, ) PDF . Normal (applies MEDGEN (St to non-numeric Juan C's results) Medical, ) ID Date Data Source [id number] 09/22/2019 12:00:00 AM EST MEDGEN ([facility] [...] to non-numeric Juan C's Urine collected results) [facility], for unspecified PC) duration Protein Abnormal MEDGEN [...] results) Medical, ) ID Date Data Source [id number] 09/22/2019 12:00:00 AM EST MEDGEN (St Julienne [...] (St Oxalate to non-numeric Juan C's results) [facility], ) Mucus Threads Present Normal (applies MEDGEN (St to non-numeric Juan C's results) [facility], ) Bacteria Few Normal (applies MEDGEN (St [Presence] in to non-numeric Juan C's Prostatic results) [facility], ) fluid by Light microscopy ID Date Data Source [id number] 09/22/2019 12:00:00 AM EST MEDGEN ([facility], ) Name Value Range Interpretation Description Data Sup porting Code Source(s) Document(s ) Leukocytes 9.5 Normal (applies MEDGEN (St [#/volume] in x10E3/uL to non-numeric Juan C's Blood by results) [facility], ) Automated count Erythrocytes 3.28 Below low normal MEDGEN (St [#/volume] in x10E6/uL Juan C's Blood by [facility], ) Automated count Hemoglobin 10.9 Below low normal MEDGEN (St [Mass/volume] in g/dL Juan C's Blood [facility], ) Hematocrit 32.1 % Below low normal MEDGEN (St [Volume Juan C's Fraction] of [facility], ) Blood by Automated count MCV 98 fL Above high normal MEDGEN ([facility], ) MCH 33.2 pg Above high normal MEDGEN ([facility], ) MCHC 34.0 Normal (applies MEDGEN (St g/dL to non-numeric Juan C's results) [facility], ) RDW 17.3 % Above high normal MEDGEN ([facility], ) Platelets 240 Normal (applies MEDGEN (St [#/area] in x10E3/uL to non-numeric Juan C's Blood by results) [facility], ) Microscopy high power field Neutrophils [#] 53 % Normal (applies MEDGEN ( St in Body fluid by to non-numeric Juan C's Manual count results) [facility], ) Lymphs 19 % Normal (applies MEDGEN (St to non-numeric Juan C's results) [facility], ) Monocytes 15 % Normal (applies MEDGEN (St [#/volume] in to non-numeric Juan C's Cord blood results) [facility], ) Eos 11 % Normal (applies MEDGEN (St to non-numeric Juan C's results) Medical, ) Basos 0 % Normal (applies MEDGEN (St to non-numeric Juan C's results) [facility], ) Neutrophils 5.1 Normal (applies MEDGEN (St (Absolute) x10E3/uL to non-numeric Juan C's results) Medical, ) Lymphs 1.8 Normal (applies MEDGEN (St (Absolute) x10E3/uL to non-numeric Juan C's results) Medical, ) Monocytes(Absolu 1.5 Above high normal MEDGE N (St te) x10E3/uL [facility], ) Eos (Absolute) 1.0 Above high normal MEDGEN (St x10E3/uL [facility], ) Baso (Absolute) 0.0 Normal (applies MEDGEN ( St x10E3/uL to non-numeric Juan C's results) Medical, ) Immature 2 % Normal (applies MEDGEN (St Granulocytes to non-numeric Juan C's results) [facility], ) Immature Grans 0.2 Above high normal MEDGEN (St (Abs) x10E3/uL Juan C's [facility], ) Hematology Note: Normal (applies MEDGEN (St Comments: to non-numeric Juan C's results) [facility], ) ID Date Data Source [id number] 09/22/2019 12:00:00 AM EST [facility] ([facility], ) Name Value Range Interpretation Code Description Data Lisa rce(s) Supporting Document(s ) ID Date Data Source [id number] 09/22/2019 12:00:00 AM EST [facility] ([facility], ) Name Value Range Interpretation Code Description Data Supporting Source(s) Document(s ) PTH, Intact 14 pg/mL Below low normal [facility] ([facility], ) ID Date Data Source [id number] 09/22/2019 12:00:00 AM EST [facility] ([facility], ) Name Value Range Interpretation Code Description Data Supporting Source(s) Document(s ) Ferritin, 329 ng/mL Normal (applies to MEDGEN (St Serum non-numeric Juan C's results) [facility], ) ID Date Data Source [id number] 09/22/2019 12:00:00 AM EST MEDGEN ([facility], ) Name Value Range Interpretation Description Data Sup porting Code Source(s) Document(s ) Deprecated 4.8 mg/dL Above high normal MEDGEN (St Phosphorus Juan C's [Mass/time] in [facility], ) 24 hour Urine ID Date Data Source [id number] 09/22/2019 12:00:00 AM EST [facility] ([facility], ) Name Value Range Interpretation Code Description Data Lisa rce(s) Supporting Document(s ) RAGINI Normal (applies to MEDGEN (St Interpreta non-numeric results) Juan C's M edical, tion:U ) ID Date Data Source [id number] 09/22/2019 12:00:00 AM EST MEDGEN ([facility], ) Name Value Range Interpretation Description Data Sup porting Code Source(s) Document(s ) Vitamin D, 36.2 Normal (applies to MEDGEN (St 25-Hydroxy ng/mL non-numeric Juan C's results) [facility], ) ID Date Data Source [id number] 09/22/2019 12:00:00 AM EST [facility] ([facility], ) Name Value Range Interpretation Code Description Data Supporting Source(s) Document(s ) Albumin, 693.2 Normal (applies to MEDGEN (St Urine ug/mL non-numeric Juan C's results) [facility], ) Alb/Creat 394.1 mg/g Above high normal MEDGEN (St Ratio creat [facility], ) ID Date Data Source [id number] 09/22/2019 12:00:00 AM EST [facility] ([facility], ) Name Value Range Interpretation Description Data Sup porting Code Source(s) Document(s ) Free Ecorse 476.00 Above high normal MEDGEN (St Lt mg/L Juan C's Chains,Ur [facility], ) Free Lambda 44.50 mg/L Above high normal MEDGEN (S t Lt Juan C's Chains,Ur [facility], ) Ecorse/Lambd 10.70 Above high normal MEDGEN (St a Ratio,U [facility], ) ID Date Data Source [id number] 09/22/2019 12:00:00 AM EST MEDGEN ([facility], ) Name Value Range Interpretation Description Data Sup porting Code Source(s) Document(s ) Free Ecorse 38.9 mg/L Above high normal MEDGEN (St Lt Chains,S [facility], ) Free Lambda 133.0 mg/L Above high normal MEDGEN (S t Lt Chains,S [facility]) Ecorse/Lambd 0.29 Normal (applies to MEDGEN (S t a Ratio,S non-numeric Juan C's results) [facility]) ID Date Data Source [id number] 09/22/2019 12:00:00 AM EST [facility] ([facility]) Name Value Range Interpretation Code Description Data Supporting Source(s) Document(s ) Creatinine 175.9 Normal (applies to MEDGEN (St , Urine mg/dL non-numeric Juan C's results) [facility]) Protein/Cr 833 mg/g Above high normal MEDGEN (St eat Ratio creat [facility]) ID Date Data Source [id number] 09/22/2019 12:00:00 AM EST MEDGEN ([facility]) Name Value Range Interpretation Description Data Sup porting Code Source(s) Document(s ) Immunofixation Normal (applies MEDGEN (S t Result, Serum to non-numeric Juan C's results) [facility]) Immunoglobulin G, 3973 Above high normal MEDG EN (St Qn, Serum mg/dL [facility]) Immunoglobulin A, 25 mg/dL Below low normal MEDGE N (St Qn, Serum [facility]) Immunoglobulin M, 13 mg/dL Below low normal MEDGE N (St Qn, Serum [facility]) ID Date Data Source [id number] 09/22/2019 12:00:00 AM EST MEDGEN ([facility], ) Name Value Range Interpretation Description Data Sup porting Code Source(s) Document(s ) Iron 297 ug/dL Normal (applies to MEDGEN (St Bind.Cap.(TIBC non-numeric Juan C's ) results) [facility]) UIBC 222 ug/dL Normal (applies to MEDGEN (St non-numeric Juan C's results) [facility]) Iron 75 ug/dL Normal (applies to MEDGEN (St [Mass/volume] non-numeric Juan C's in Serum or results) [facility]) Plasma Iron 25 % Normal (applies to MEDGEN (St saturation non-numeric Juan C's [Mass results) [facility] ) Fraction] in Serum or Plasma ID Date Data Source [id number] 09/22/2019 12:00:00 AM EST MEDGEN ([facility] Julienne diana's [facility], ) Name Value Range Interpretation Description [...] Above high normal [facility] ([facility], ) Please Normal (applies to MEDGEN (St note: non-numeric Juan C's results) Medical, ) PDF . Normal (applies to MEDGEN (St non-numeric Juan C's results) Medical, ) ID Date Data Source [id number] 09/22/2019 12:00:00 AM EST [facility]GEN ([facility], ) Name Value Range Interpretation Description Data Sup porting Code Source(s) Document(s ) Protein 9.0 g/dL Above high normal MEDGEN (St [Mass/volume] in Juan C's Serum or Plasma Medical, ) Microalbumin 4.0 g/dL Normal (applies MEDGEN (St [Mass/time] in to non-numeric Juan C's Urine collected results) Medical, for unspecified PC) duration Zwnac-0-Zjoaobdc 0.2 g/dL Normal (applies MEDGEN (St to non-numeric Juan C's results) Medical, ) Tuwih-2-Bsnjtubd 0.8 g/dL Normal (applies MEDGEN (St to non-numeric Juan C's results) Medical, ) Beta globulin 0.8 g/dL Normal (applies MEDGEN (St [Mass/volume] in to non-numeric Juan C's Urine by results) Medical, Electrophoresis PC) Gamma globulin 3.2 g/dL Above high normal MEDGEN (St [Mass/volume] by Juan C's Electrophoresis in Medical, Urine collected PC) for unspecified duration M-Kevyn 2.9 g/dL Above high normal [facility] ([facility]) Globulin, Total 5.0 g/dL Above high normal [facility] ([facility]) A/G Ratio 0.8 Normal (applies MEDGEN (St to non-numeric Juan C's results) [facility], PC) Please note: Normal (applies MEDGEN (St to non-numeric Juan C's results) [facility], PC) PDF . Normal (applies MEDGEN (St to non-numeric Juan C's results) Medical, ) ID Date Data Source [id number] 09/22/2019 12:00:00 AM EST [facility] ([facility], ) Name Value Range Interpretation Description [...] (S t to non-numeric Juan C's results) [facility], ) Microscopic See below: Normal (applies MEDGEN (St Examination to non-numeric Juan C's results) [facility], ) ID Date Data Source [id number] 09/22/2019 12:00:00 AM EST MEDGEN ([facility], ) Name Value Range Interpretation Description Data Sup porting Code Source(s) Document(s ) WBC 0-5 Normal (applies MEDGEN (St to non-numeric Juan C's results) [facility], ) RBC 0-2 Normal (applies MEDGEN (St to non-numeric Juan C's results) [facility], ) Epithelial None seen Normal (applies MEDGEN (St Cells (non to non-numeric Juan C's renal) results) [facility], ) Casts Present Abnormal (applies MEDGEN (St [#/area] in to non-numeric Juan C's Urine results) Medical, ) sediment by Automated count Cast Type Granular Abnormal (applies MEDGEN (St casts to non-numeric Juan C's results) [facility], ) Crystals Present Abnormal (applies MEDGEN (St [#/area] in to non-numeric Juan C's Body fluid by results) [facility], ) Light microscopy Crystal Type Calcium Normal (applies MEDGEN (St Oxalate to non-numeric Juan C's results) [facility], ) Mucus Threads Present Normal (applies MEDGEN (St to non-numeric Juan C's results) [facility], ) Bacteria Few Normal (applies MEDGEN (St [Presence] in to non-numeric Juan C's Prostatic results) Medical, ) fluid by Light microscopy ID Date Data Source [id number] 09/22/2019 12:00:00 AM EST [facility] ([facility], ) Name Value Range Interpretation Description Data Sup porting Code Source(s) Document(s ) Leukocytes 9.5 Normal (applies MEDGEN (St [#/volume] in x10E3/uL to non-numeric Juan C's Blood by results) Medical, ) Automated count Erythrocytes 3.28 Below low normal MEDGEN (St [#/volume] in x10E6/uL Juan C's Blood by [facility], ) Automated count Hemoglobin 10.9 Below low normal MEDGEN (St [Mass/volume] in g/dL Juan C's Blood [facility], ) Hematocrit 32.1 % Below low normal MEDGEN (St [Volume Juan C's Fraction] of [facility], ) Blood by Automated count MCV 98 fL Above high normal [facility] ([facility], ) MCH 33.2 pg Above high normal [facility] ([facility], ) MCHC 34.0 Normal (applies MEDGEN (St g/dL to non-numeric Juan C's results) [facility]) RDW 17.3 % Above high normal [facility] ([facility], ) Platelets 240 Normal (applies MEDGEN (St [#/area] in x10E3/uL to non-numeric Juan C's Blood by results) [facility]) Microscopy high power field Neutrophils [#] 53 % Normal (applies MEDGEN ( St in Body fluid by to non-numeric Juan C's Manual count results) [facility], ) Lymphs 19 % Normal (applies MEDGEN (St to non-numeric Juan C's results) [facility]) Monocytes 15 % Normal (applies MEDGEN (St [#/volume] in to non-numeric Juan C's Cord blood results) [facility]) Eos 11 % Normal (applies MEDGEN (St to non-numeric Juan C's results) [facility]) Basos 0 % Normal (applies MEDGEN (St to non-numeric Juan C's results) [facility]) Neutrophils 5.1 Normal (applies MEDGEN (St (Absolute) x10E3/uL to non-numeric Juan C's results) [facility]) Lymphs 1.8 Normal (applies MEDGEN (St (Absolute) x10E3/uL to non-numeric Juan C's results) [facility]) Monocytes(Absolu 1.5 Above high normal MEDGE N (St te) x10E3/uL Juan C's [facility]) Eos (Absolute) 1.0 Above high normal MEDGEN (St x10E3/uL Juan C's [facility], ) Baso (Absolute) 0.0 Normal (applies MEDGEN ( St x10E3/uL to non-numeric Juan C's results) [facility], ) Immature 2 % Normal (applies MEDGEN (St Granulocytes to non-numeric Juan C's results) Medical, PC) Immature Grans 0.2 Above high normal MEDGEN (St (Abs) x10E3/uL Juan C's [facility], ) Hematology Note: Normal (applies MEDGEN (St Comments: to non-numeric Juan C's results) Medical, ) ID Date Data Source [id number] 09/22/2019 12:00:00 AM EST [facility] ([facility], ) Name Value Range Interpretation Code Description Data Lisa rce(s) Supporting Document(s ) ID Date Data Source [id number] 09/22/2019 12:00:00 AM EST [facility] ([facility]) Name Value Range Interpretation Code Description Data Supporting Source(s) Document(s ) PTH, Intact 10 pg/mL Below low normal [facility] ([facility], ) PTH, Intact 14 pg/mL Below low normal [facility] ([facility], ) ID Date Data Source [id number] 09/22/2019 12:00:00 AM EST [facility] ([facility], ) Name Value Range Interpretation Code Description Data Supporting Source(s) Document(s ) Ferritin, 349 ng/mL Normal (applies to MEDGEN (St Serum non-numeric Juan C's results) Medical, ) Ferritin, 329 ng/mL Normal (applies to MEDGEN (St Serum non-numeric Juan C's results) Medical, ) ID Date Data Source [id number] 09/22/2019 12:00:00 AM EST [facility] ([facility], ) Name Value Range Interpretation Description Data Sup porting Code Source(s) Document(s ) Deprecated 5.4 mg/dL Above high normal MEDGEN (St Phosphorus Juan C's [Mass/time] in Medical, PC) 24 hour Urine Deprecated 4.8 mg/dL Above high normal MEDGEN (St Phosphorus Juan C's [Mass/time] in Medical, PC) 24 hour Urine ID Date Data Source [id number] 09/22/2019 12:00:00 AM EST [facility] ([facility]) Name Value Range Interpretation Code Description Data Lisa rce(s) Supporting Document(s ) ID Date Data Source [id number] 09/22/2019 12:00:00 AM EST [facility]) Name Value Range Interpretation Description Data Sup porting Code Source(s) Document(s ) Vitamin D, 30.6 Normal (applies to MEDGEN (St 25-Hydroxy ng/mL non-numeric Juan C's results) Medical, ) Vitamin D, 42.8 Normal (applies to MEDGEN (St 25-Hydroxy ng/mL non-numeric Juan C's results) Medical, ) Vitamin D, 36.2 Normal (applies to MEDGEN (St 25-Hydroxy ng/mL non-numeric Juan C's results) [facility], ) ID Date Data Source [id number] 09/22/2019 12:00:00 AM EST [facility]GEN ([facility], ) Name Value Range Interpretation Code Description Data Supporting Source(s) Document(s ) Albumin, 693.2 Normal (applies to MEDGEN (St Urine ug/mL non-numeric Juan C's results) Medical, ) Alb/Creat 394.1 mg/g Above high normal MEDGEN (St Ratio creat [facility], ) ID Date Data Source [id number] 09/22/2019 12:00:00 AM EST [facility]GEN ([facility], ) Name Value Range Interpretation Description Data Sup porting Code Source(s) Document(s ) Free Ecorse 141.85 Above high normal MEDGEN (St Lt mg/L Juan C's Chains,Ur [facility], ) Ecorse/Lambd 1.28 Normal (applies to MEDGEN (S t a Ratio,U non-numeric Juan C's results) [facility], ) Free Lambda 110.44 Above high normal MEDGEN (St Lt mg/L Juan C's Chains,Ur Medical, ) Free Ecorse 476.00 Above high normal MEDGEN (St Lt mg/L Juan C's Chains,Ur Medical, ) Ecorse/Lambd 10.70 Above high normal MEDGEN (St a Ratio,U [facility], ) Free Lambda 44.50 mg/L Above high normal MEDGEN (S t Lt Juan C's Chains,Ur Medical, ) ID Date Data Source [id number] 09/22/2019 12:00:00 AM EST MEDGEN ([facility], ) Name Value Range Interpretation Description Data Sup porting Code Source(s) Document(s ) Free Ecorse 41.1 mg/L Above high normal MEDGEN (St Lt Chains,S Juan C's [facility], ) Free Lambda 176.0 mg/L Above high normal MEDGEN (S t Lt Chains,S [facility], ) Ecorse/Lambd 0.23 Below low normal MEDGEN (St a Ratio,S [facility], ) Free Ecorse 38.9 mg/L Above high normal MEDGEN (St Lt Chains,S [facility], ) Free Lambda 133.0 mg/L Above high normal MEDGEN (S t Lt Chains,S [facility], ) Ecorse/Lambd 0.29 Normal (applies to MEDGEN (S t a Ratio,S non-numeric Juan C's results) [facility], ) ID Date Data Source [id number] 09/22/2019 12:00:00 AM EST [facility]GEN ([facility], ) Name Value Range Interpretation Code Description Data Supporting Source(s) Document(s ) Creatinine 94.7 mg/dL Normal (applies to MEDGEN (S t , Urine non-numeric Juan C's results) [facility], ) Protein/Cr 1072 mg/g Above high normal MEDGEN (St eat Ratio creat [facility], ) Creatinine 175.9 Normal (applies to MEDGEN (St , Urine mg/dL non-numeric Juan C's results) [facility]) Protein/Cr 833 mg/g Above high normal MEDGEN (St eat Ratio creat [facility], ) ID Date Data Source [id number] 09/22/2019 12:00:00 AM EST [facility]GEN ([facility], ) Name Value Range Interpretation Description Data Sup porting Code Source(s) Document(s ) Immunoglobulin G, 3867 Above high normal MEDG EN (St Qn, Serum mg/dL [facility]) Immunoglobulin A, 17 mg/dL Below low normal MEDGE N (St Qn, Serum [facility], ) Immunoglobulin M, 8 mg/dL Below low normal MEDGE N (St Qn, Serum [facility], ) Immunoglobulin G, 3973 Above high normal MEDG EN (St Qn, Serum mg/dL [facility], ) Immunoglobulin M, 13 mg/dL Below low normal MEDGE N (St Qn, Serum [facility], ) Immunoglobulin A, 25 mg/dL Below low normal MEDGE N (St Qn, Serum [facility], ) ID Date Data Source [id number] 09/22/2019 12:00:00 AM EST [facility]GEN ([facility], ) Name Value Range Interpretation Description [...] Serum or Plasma ID Date Data Source [id number] 09/22/2019 12:00:00 AM EST MEDGEN ([facility], ) Name Value Range Interpretation Code [...] (St Globulin, non-numeric Juan C's U results) [facility], ) Gamma 15.6 % Normal (applies to [...] to MEDGEN (St non-numeric Juan C's results) [facility], ) ID Date Data Source [id number] 09/22/2019 12:00:00 AM EST [facility] ([facility], ) Name Value Range Interpretation Description Data Sup porting Code Source(s) Document(s ) Microalbumin 4.0 g/dL Normal (applies MEDGEN (St [Mass/time] in to non-numeric Juan C's Urine collected results) Medical, for unspecified PC) duration Hvsbq-6-Gxoufxex 0.2 g/dL Normal (applies MEDGEN (St to non-numeric Juan C's results) Medical, ) Yaadd-6-Tbkpbuzc 0.8 g/dL Normal (applies MEDGEN (St to non-numeric Juan C's results) Medical, ) Beta globulin 0.7 g/dL Normal (applies MEDGEN (St [Mass/volume] in to non-numeric Juan C's Urine by results) Medical, Electrophoresis PC) Gamma globulin 3.5 g/dL Above high normal MEDGEN (St [Mass/volume] by Juan C's Electrophoresis in Medical, Urine collected ) for unspecified duration M-Kevyn 3.2 g/dL Above high normal MEDGEN ([facility], ) Globulin, Total 5.1 g/dL Above high normal MEDGEN ([facility], ) A/G Ratio 0.8 Normal (applies MEDGEN (St to non-numeric Juan C's results) [facility], ) PDF . Normal (applies MEDGEN (St to non-numeric Juan C's results) [facility], ) Protein 9.0 g/dL Above high normal MEDGEN (St [Mass/volume] in Juan C's Serum or Plasma [facility], ) Microalbumin 4.0 g/dL Normal (applies MEDGEN (St [Mass/time] in to non-numeric Juan C's Urine collected results) [facility], for unspecified PC) duration Ikhsa-3-Fvjoipyn 0.2 g/dL Normal (applies MEDGEN (St to non-numeric Juan C's results) [facility], ) Gpldz-6-Nqbidgar 0.8 g/dL Normal (applies MEDGEN (St to non-numeric Juan C's results) [facility], ) Beta globulin 0.8 g/dL Normal (applies MEDGEN (St [Mass/volume] in to non-numeric Juan C's Urine by results) [facility], Electrophoresis ) Gamma globulin 3.2 g/dL Above high normal MEDGEN (St [Mass/volume] by Juan C's Electrophoresis in [facility], Urine collected ) for unspecified duration M-Kevyn 2.9 g/dL Above high normal MEDGEN ([facility], ) Globulin, Total 5.0 g/dL Above high normal MEDGEN ([facility], ) A/G Ratio 0.8 Normal (applies MEDGEN (St to non-numeric Juan C's results) [facility], ) PDF . Normal (applies MEDGEN (St to non-numeric Juan C's results) [facility], ) ID Date Data Source [id number] 09/22/2019 12:00:00 AM EST MEDGEN ([facility], ) Name Value Range Interpretation Description [...] Occult Blood Abnormal MEDGEN (St (applies to Jaun C's non-numeric Medical, results) PC) Urobilinogen,Mel 0.2 [...] results) Medical, ) ID Date Data Source [id number] 09/22/2019 12:00:00 AM EST MEDGEN (St Julienne [...] in to non-numeric Juan C's Urine results) [facility]) sediment by Automated count Cast Type Granular Abnormal (applies MEDGEN (St casts to non-numeric Juan C's results) [facility], ) Crystals Present Abnormal (applies MEDGEN (St [#/area] in to non-numeric Juan C's Body fluid by results) [facility], ) Light microscopy Crystal Type Calcium Normal (applies MEDGEN (St Oxalate to non-numeric Juan C's results) [facility], ) Mucus Threads Present Normal (applies MEDGEN (St to non-numeric Juan C's results) [facility], ) Bacteria Few Normal (applies MEDGEN (St [Presence] in to non-numeric Juan C's Prostatic results) [facility]) fluid by Light microscopy ID Date Data Source [id number] 09/22/2019 12:00:00 AM EST MEDGEN ([facility], ) Name Value Range Interpretation Description Data Sup porting Code Source(s) Document(s ) Leukocytes 11.7 Above high normal MEDGEN (St [#/volume] in x10E3/uL Juan C's Blood by [facility], ) Automated count Erythrocytes 2.47 Below lower panic MEDGEN (S t [#/volume] in x10E6/uL limits Juan C's Blood by [facility], ) Automated count Hemoglobin 8.2 g/dL Below low normal MEDGEN (St [Mass/volume] in Juan C's Blood [facility], ) Hematocrit 23.3 % Below low normal MEDGEN (St [Volume Juan C's Fraction] of [facility], ) Blood by Automated count MCV 94 fL Normal (applies MEDGEN (St to non-numeric Juan C's results) [facility], ) MCH 33.2 pg Above high normal MEDGEN ([facility], ) MCHC 35.2 Normal (applies MEDGEN (St g/dL to non-numeric Juan C's results) [facility]) RDW 19.0 % Above high normal MEDGEN ([facility], ) Platelets 198 Normal (applies MEDGEN (St [#/area] in x10E3/uL to non-numeric Juan C's Blood by results) [facility]) Microscopy high power field Neutrophils [#] 54 % Normal (applies MEDGEN ( St in Body fluid by to non-numeric Juan C's Manual count results) [facility]) Lymphs 13 % Normal (applies MEDGEN (St to non-numeric Juan C's results) [facility], ) Monocytes 16 % Normal (applies MEDGEN (St [#/volume] in to non-numeric Juan C's Cord blood results) [facility], ) Eos 11 % Normal (applies MEDGEN (St to non-numeric Juan C's results) [facility], ) Neutrophils 6.4 Normal (applies MEDGEN (St (Absolute) x10E3/uL to non-numeric Juan C's results) [facility], ) Basos 1 % Normal (applies MEDGEN (St to non-numeric Juan C's results) [facility], ) Lymphs 1.5 Normal (applies MEDGEN (St (Absolute) x10E3/uL to non-numeric Juan C's results) [facility], ) Eos (Absolute) 1.3 Above high normal MEDGEN (St x10E3/uL Juan C's [facility], ) Monocytes(Absolu 1.9 Above high normal MEDGE N (St te) x10E3/uL Juan C's [facility], ) Baso (Absolute) 0.1 Normal (applies MEDGEN ( St x10E3/uL to non-numeric Juan C's results) [facility], ) Immature 5 % Normal (applies MEDGEN (St Granulocytes to non-numeric Juan C's results) [facility], ) Immature Grans 0.6 Above high normal MEDGEN (St (Abs) x10E3/uL Juan C's [facility], ) NRBC 4 % Above high normal [facility] ([facility], ) Leukocytes 11.8 Above high normal MEDGEN (St [#/volume] in x10E3/uL Juan C's Blood by [facility], ) Automated count Erythrocytes 3.28 Below low normal MEDGEN (St [#/volume] in x10E6/uL Juan C's Blood by [facility], ) Automated count Hemoglobin 10.8 Below low normal MEDGEN (St [Mass/volume] in g/dL Juan C's Blood [facility], ) Hematocrit 31.7 % Below low normal MEDGEN (St [Volume Juan C's Fraction] of [facility], ) Blood by Automated count MCV 97 fL Normal (applies MEDGEN (St to non-numeric Juan C's results) [facility], ) MCHC 34.1 Normal (applies MEDGEN (St g/dL to non-numeric Juan C's results) [facility], ) MCH 32.9 pg Normal (applies MEDGEN (St to non-numeric Juan C's results) [facility], ) RDW 17.5 % Above high normal MEDGEN ([facility], ) Neutrophils [#] 53 % Normal (applies MEDGEN ( St in Body fluid by to non-numeric Juan C's Manual count results) [facility], ) Platelets 237 Normal (applies MEDGEN (St [#/area] in x10E3/uL to non-numeric Juan C's Blood by results) [facility], ) Microscopy high power field Lymphs 20 % Normal (applies MEDGEN (St to non-numeric Juan C's results) [facility], ) Monocytes 13 % Normal (applies MEDGEN (St [#/volume] in to non-numeric Juan C's Cord blood results) [facility]) Basos 1 % Normal (applies MEDGEN (St to non-numeric Juan C's results) [facility], ) Eos 12 % Normal (applies MEDGEN (St to non-numeric Juan C's results) [facility]) Neutrophils 6.2 Normal (applies MEDGEN (St (Absolute) x10E3/uL to non-numeric Juan C's results) [facility]) Lymphs 2.4 Normal (applies MEDGEN (St (Absolute) x10E3/uL to non-numeric Juan C's results) [facility]) Monocytes(Absolu 1.5 Above high normal MEDGE N (St te) x10E3/uL Juan C's [facility], ) Eos (Absolute) 1.5 Above high normal MEDGEN (St x10E3/uL Juan C's [facility], ) Baso (Absolute) 0.1 Normal (applies MEDGEN ( St x10E3/uL to non-numeric Juan C's results) [facility], ) Immature 1 % Normal (applies MEDGEN (St Granulocytes to non-numeric Juan C's results) [facility]) Immature Grans 0.2 Above high normal MEDGEN (St (Abs) x10E3/uL Juan C's [facility], ) Hematology Note: Normal (applies MEDGEN (St Comments: to non-numeric Juan C's results) [facility], ) Leukocytes 9.5 Normal (applies MEDGEN (St [#/volume] in x10E3/uL to non-numeric Juan C's Blood by results) [facility], ) Automated count Erythrocytes 3.28 Below low normal MEDGEN (St [#/volume] in x10E6/uL Juan C's Blood by [facility], ) Automated count Hemoglobin 10.9 Below low normal MEDGEN (St [Mass/volume] in g/dL Juan C's Blood [facility]) Hematocrit 32.1 % Below low normal MEDGEN (St [Volume Juan C's Fraction] of [facility]) Blood by Automated count MCV 98 fL Above high normal [facility] ([facility], ) MCHC 34.0 Normal (applies MEDGEN (St g/dL to non-numeric Juan C's results) [facility]) MCH 33.2 pg Above high normal [facility] ([facility], ) RDW 17.3 % Above high normal MEDGEN ([facility], ) Platelets 240 Normal (applies MEDGEN (St [#/area] in x10E3/uL to non-numeric Juan C's Blood by results) [facility]) Microscopy high power field Neutrophils [#] 53 % Normal (applies MEDGEN ( St in Body fluid by to non-numeric Juan C's Manual count results) [facility]) Lymphs 19 % Normal (applies MEDGEN (St to non-numeric Juan C's results) [facility]) Eos 11 % Normal (applies MEDGEN (St to non-numeric Juan C's results) [facility]) Monocytes 15 % Normal (applies MEDGEN (St [#/volume] in to non-numeric Juan C's Cord blood results) [facility]) Basos 0 % Normal (applies MEDGEN (St to non-numeric Juan C's results) [facility]) Lymphs 1.8 Normal (applies MEDGEN (St (Absolute) x10E3/uL to non-numeric Juan C's results) [facility]) Neutrophils 5.1 Normal (applies MEDGEN (St (Absolute) x10E3/uL to non-numeric Juan C's results) [facility]) Monocytes(Absolu 1.5 Above high normal MEDGE N (St te) x10E3/uL [facility]'s [facility]) Eos (Absolute) 1.0 Above high normal MEDGEN (St x10E3/uL [facility]'s [facility]) Baso (Absolute) 0.0 Normal (applies MEDGEN ( St x10E3/uL to non-numeric Juan C's results) [facility]) Immature 2 % Normal (applies MEDGEN (St Granulocytes to non-numeric Juan C's results) Medical, ) Hematology Note: Normal (applies MEDGEN (St Comments: to non-numeric Juan C's results) Medical, ) Immature Grans 0.2 Above high normal MEDGEN (St (Abs) x10E3/uL Juan C's [facility], ) ID Date Data Source [id number] 09/22/2019 12:00:00 AM EST [facility] ([facility], ) Name Value Range Interpretation Code Description Data Lisa rce(s) Supporting Document(s ) ID Date Data Source [id number] 09/22/2019 12:00:00 AM EST [facility] ([facility], ) Name Value Range Interpretation Code Description Data Supporting Source(s) Document(s ) PTH, Intact 14 pg/mL Below low normal MEDGEN ([facility], ) ID Date Data Source [id number] 09/22/2019 12:00:00 AM EST [facility] ([facility], ) Name Value Range Interpretation Code Description Data Supporting Source(s) Document(s ) Ferritin, 329 ng/mL Normal (applies to MEDGEN (St Serum non-numeric Juan C's results) [facility], ) ID Date Data Source [id number] 09/22/2019 12:00:00 AM EST [facility] ([facility], ) Name Value Range Interpretation Description Data Sup porting Code Source(s) Document(s ) Deprecated 4.8 mg/dL Above high normal MEDGEN (St Phosphorus Juan C's [Mass/time] in Medical, ) 24 hour Urine ID Date Data Source [id number] 09/22/2019 12:00:00 AM EST [facility] ([facility], ) Name Value Range Interpretation Code Description Data Lisa rce(s) Supporting Document(s ) ID Date Data Source [id number] 09/22/2019 12:00:00 AM EST [facility] ([facility], ) Name Value Range Interpretation Description Data Sup porting Code Source(s) Document(s ) Vitamin D, 42.8 Normal (applies to MEDGEN (St 25-Hydroxy ng/mL non-numeric Juan C's results) Medical, ) Vitamin D, 36.2 Normal (applies to MEDGEN (St 25-Hydroxy ng/mL non-numeric Juan C's results) Medical, ) ID Date Data Source [id number] 09/22/2019 12:00:00 AM EST [facility] ([facility] Name Value Range Interpretation Code Description Data Supporting Source(s) Document(s ) Albumin, 693.2 Normal (applies to MEDGEN (St Urine ug/mL non-numeric Juan C's results) [facility], ) Alb/Creat 394.1 mg/g Above high normal MEDGEN (St Ratio creat [facility], ) ID Date Data Source [id number] 09/22/2019 12:00:00 AM EST [facility] ([facility] Name Value Range Interpretation Description Data Sup porting Code Source(s) Document(s ) Free [place] 476.00 Above high normal MEDGEN (St Lt mg/L [facility]) Free Lambda 44.50 mg/L Above high normal MEDGEN (S t Lt [facility]'s [facility]) [place]/Lambd 10.70 Above high normal MEDGEN (St a Ratio,U [facility]) ID Date Data Source [id number] 09/22/2019 12:00:00 AM EST [facility] ([facility] Name Value Range Interpretation Description Data Sup porting Code Source(s) Document(s ) Free [place] 38.9 mg/L Above high normal MEDGEN (St Lt Chains,S [facility]) Free Lambda 133.0 mg/L Above high normal MEDGEN (S t Lt Chains,S [facility]) [place]/Lambd 0.29 Normal (applies to MEDGEN (S t a Ratio,S non-numeric Juan C's results) Medical, ) ID Date Data Source [id number] 09/22/2019 12:00:00 AM EST [facility] ([facility] Name Value Range Interpretation Code Description Data Supporting Source(s) Document(s ) Creatinine 175.9 Normal (applies to MEDGEN (St , Urine mg/dL non-numeric Juan C's results) Medical, ) Protein/Cr 833 mg/g Above high normal MEDGEN (St eat Ratio creat [facility]) ID Date Data Source [id number] 09/22/2019 12:00:00 AM EST [facility] ([facility] Name Value Range Interpretation Description Data Sup porting Code Source(s) Document(s ) Immunoglobulin G, 3973 Above high normal MEDG EN (St Qn, Serum mg/dL [facility]) Immunoglobulin M, 13 mg/dL Below low normal MEDGE N (St Qn, Serum [facility]) Immunoglobulin A, 25 mg/dL Below low normal MEDGE N (St Qn, Serum [facility]) ID Date Data Source [id number] 09/22/2019 12:00:00 AM EST MEDGEN ([facility]) Name Value Range Interpretation Description Data Sup porting Code Source(s) Document(s ) UIBC 222 ug/dL Normal (applies to MEDGEN (St non-numeric Juan C's results) [facility]) Iron 297 ug/dL Normal (applies to MEDGEN (St Bind.Cap.(TIBC non-numeric Juan C's ) results) [facility]) Iron 25 % Normal (applies to MEDGEN (St saturation non-numeric Juan C's [Mass results) [facility]) Fraction] in Serum or Plasma Iron 75 ug/dL Normal (applies to MEDGEN (St [Mass/volume] non-numeric Juan C's in Serum or results) [facility]) Plasma ID Date Data Source [id number] 09/22/2019 12:00:00 AM EST MEDGEN ([facility]) Name Value Range Interpretation Code Description Data Supporting Source(s) Document(s ) Protein,To 146.6 Normal (applies to MEDGEN (St ruth,Urine mg/dL non-numeric Juan C's results) [facility]) Albumin, U 47.8 % Normal (applies to MEDGEN (St non-numeric Juan C's results) [facility]) Alpha-1-Gl 3.5 % Normal (applies to MEDGEN (St obulin, U non-numeric Juan C's results) [facility]) Beta 24.4 % Normal (applies to MEDGEN (St Globulin, non-numeric Juan C's U results) [facility]) Alpha-2-Gl 9.6 % Normal (applies to MEDGEN (St obulin, U non-numeric Juan C's results) [facility]) Gamma 14.8 % Normal (applies to MEDGEN (St Globulin, non-numeric Juan C's U results) [facility]) M-Kevyn, % 9.8 % Above high normal MEDGEN ([facility], ) PDF . Normal (applies to MEDGEN (St non-numeric Juan C's results) [facility], ) ID Date Data Source [id number] 09/22/2019 12:00:00 AM EST MEDGEN ([facility]) Name Value Range Interpretation Description Data Sup porting Code Source(s) Document(s ) Protein 9.0 g/dL Above high normal MEDGEN (St [Mass/volume] in Juan C's Serum or Plasma Medical, ) Microalbumin 4.0 g/dL Normal (applies MEDGEN (St [Mass/time] in to non-numeric Juan C's Urine collected results) Medical, for unspecified PC) duration Vmzcc-5-Xuvqpltl 0.8 g/dL Normal (applies MEDGEN (St to non-numeric Juan C's results) Medical, ) Intdg-6-Zawebyxj 0.2 g/dL Normal (applies MEDGEN (St to non-numeric Juan C's results) Medical, ) Beta globulin 0.8 g/dL Normal (applies MEDGEN (St [Mass/volume] in to non-numeric Juan C's Urine by results) Medical, Electroph[facility]) Gamma globulin 3.2 g/dL Above high normal MEDGEN (St [Mass/volume] by [facility]'s Electrophoresis in Medical, Urine collected ) for unspecified duration M-Kevyn 2.9 g/dL Above high normal MEDGEN ([facility], ) Globulin, Total 5.0 g/dL Above high normal MEDGEN ([facility], ) PDF . Normal (applies MEDGEN (St to non-numeric Juan C's results) Medical, ) A/G Ratio 0.8 Normal (applies MEDGEN (St to non-numeric Juan C's results) [facility], ) ID Date Data Source [id number] 09/22/2019 12:00:00 AM EST MEDGEN ( [facility], ) Name Value Range Interpretation Description [...] to non-numeric Juan C's Urine collected results) [facility], for unspecified PC) duration Protein Abnormal MEDGEN [...] (St Examination to non-numeric Juan C's results) [facility], ) ID Date Data Source [id number] 09/22/2019 12:00:00 AM EST MEDGEN (St [facility] [...] (St casts to non-numeric Juan C's results) [facility], ) Mucus Threads Present Normal (applies MEDGEN (St to non-numeric Juan C's results) [facility], ) Crystal Type Calcium Normal (applies MEDGEN (St Oxalate to non-numeric Juan C's results) [facility], ) Bacteria Few Normal (applies MEDGEN (St [Presence] in to non-numeric Juan C's Prostatic results) [facility], ) fluid by Light microscopy ID Date Data Source [id number] 09/22/2019 12:00:00 AM EST [facility] ([facility], ) Name Value Range Interpretation Description Data Sup porting Code Source(s) Document(s ) Erythrocytes 3.28 Below low normal MEDGEN (St [#/volume] in x10E6/uL Juan C's Blood by [facility], ) Automated count Leukocytes 11.8 Above high normal MEDGEN (St [#/volume] in x10E3/uL Juan C's Blood by [facility], ) Automated count Hemoglobin 10.8 Below low normal MEDGEN (St [Mass/volume] in g/dL Juan C's Blood [facility], ) Hematocrit 31.7 % Below low normal MEDGEN (St [Volume Juan C's Fraction] of [facility], ) Blood by Automated count MCV 97 fL Normal (applies MEDGEN (St to non-numeric Juan C's results) [facility], ) MCH 32.9 pg Normal (applies MEDGEN (St to non-numeric Juan C's results) [facility], ) RDW 17.5 % Above high normal [facility]GEN ([facility], ) MCHC 34.1 Normal (applies MEDGEN (St g/dL to non-numeric Juan C's results) [facility], ) Platelets 237 Normal (applies MEDGEN (St [#/area] in x10E3/uL to non-numeric Juan C's Blood by results) [facility], ) Microscopy high power field Neutrophils [#] 53 % Normal (applies MEDGEN ( St in Body fluid by to non-numeric Juan C's Manual count results) [facility], ) Monocytes 13 % Normal (applies MEDGEN (St [#/volume] in to non-numeric Juan C's Cord blood results) [facility], ) Lymphs 20 % Normal (applies MEDGEN (St to non-numeric Juan C's results) [facility], ) Eos 12 % Normal (applies MEDGEN (St to non-numeric Juan C's results) Medical, ) Basos 1 % Normal (applies MEDGEN (St to non-numeric Juan C's results) [facility], ) Neutrophils 6.2 Normal (applies MEDGEN (St (Absolute) x10E3/uL to non-numeric Juan C's results) [facility], ) Lymphs 2.4 Normal (applies MEDGEN (St (Absolute) x10E3/uL to non-numeric Juan C's results) [facility], ) Monocytes(Absolu 1.5 Above high normal MEDGE N (St te) x10E3/uL Juan C's [facility], ) Eos (Absolute) 1.5 Above high normal MEDGEN (St x10E3/uL Juan C's [facility], ) Baso (Absolute) 0.1 Normal (applies MEDGEN ( St x10E3/uL to non-numeric Juan C's results) [facility], ) Immature 1 % Normal (applies MEDGEN (St Granulocytes to non-numeric Juan C's results) [facility], ) Immature Grans 0.2 Above high normal MEDGEN (St (Abs) x10E3/uL Juan C's [facility], ) Hematology Note: Normal (applies MEDGEN (St Comments: to non-numeric Juan C's results) [facility], ) Erythrocytes 3.28 Below low normal MEDGEN (St [#/volume] in x10E6/uL Juan C's Blood by [facility], ) Automated count Leukocytes 9.5 Normal (applies MEDGEN (St [#/volume] in x10E3/uL to non-numeric Juan C's Blood by results) [facility], ) Automated count Hematocrit 32.1 % Below low normal MEDGEN (St [Volume Juan C's Fraction] of [facility], ) Blood by Automated count Hemoglobin 10.9 Below low normal MEDGEN (St [Mass/volume] in g/dL Juan C's Blood [facility], ) MCV 98 fL Above high normal MEDGEN ([facility], ) MCH 33.2 pg Above high normal MEDGEN ([facility], ) MCHC 34.0 Normal (applies MEDGEN (St g/dL to non-numeric Juan C's results) [facility], ) RDW 17.3 % Above high normal MEDGEN ([facility], ) Neutrophils [#] 53 % Normal (applies MEDGEN ( St in Body fluid by to non-numeric Juan C's Manual count results) [facility], ) Platelets 240 Normal (applies MEDGEN (St [#/area] in x10E3/uL to non-numeric Juan C's Blood by results) [facility]) Microscopy high power field Lymphs 19 % Normal (applies MEDGEN (St to non-numeric Juan C's results) [facility], ) Monocytes 15 % Normal (applies MEDGEN (St [#/volume] in to non-numeric Juan C's Cord blood results) [facility], ) Basos 0 % Normal (applies MEDGEN (St to non-numeric Juan C's results) [facility], ) Eos 11 % Normal (applies MEDGEN (St to non-numeric Juan C's results) [facility]) Lymphs 1.8 Normal (applies MEDGEN (St (Absolute) x10E3/uL to non-numeric Juan C's results) [facility]) Neutrophils 5.1 Normal (applies MEDGEN (St (Absolute) x10E3/uL to non-numeric Juan C's results) [facility], ) Monocytes(Absolu 1.5 Above high normal MEDGE N (St te) x10E3/uL Juan C's [facility], ) Eos (Absolute) 1.0 Above high normal MEDGEN (St x10E3/uL Juan C's [facility], ) Baso (Absolute) 0.0 Normal (applies MEDGEN ( St x10E3/uL to non-numeric Juan C's results) [facility], ) Immature 2 % Normal (applies MEDGEN (St Granulocytes to non-numeric Juan C's results) [facility]) Immature Grans 0.2 Above high normal MEDGEN (St (Abs) x10E3/uL [facility], ) Hematology Note: Normal (applies MEDGEN (St Comments: to non-numeric Juan C's results) [facility]) ID Date Data Source [id number] 09/22/2019 12:00:00 AM EST [facility]GEN ([facility], ) Name Value Range Interpretation Code Description Data Lisa rce(s) Supporting Document(s ) ID Date Data Source [id number] 09/22/2019 12:00:00 AM EST [facility]GEN ([facility], ) Name Value Range Interpretation Code Description Data Supporting Source(s) Document(s ) PTH, Intact 14 pg/mL Below low normal MEDGEN ([facility], ) ID Date Data Source [id number] 09/22/2019 12:00:00 AM EST MEDGEN ([facility], ) Name Value Range Interpretation Code Description Data Lisa rce(s) Supporting Document(s ) ID Date Data Source [id number] 09/22/2019 12:00:00 AM EST [facility]GEN ([facility], ) Name Value Range Interpretation Code Description Data Supporting Source(s) Document(s ) PTH, Intact 14 pg/mL Below low normal MEDGEN ([facility], ) ID Date Data Source [id number] 09/22/2019 12:00:00 AM EST MEDGEN ([facility], ) Name Value Range Interpretation Code Description Data Supporting Source(s) Document(s ) Ferritin, 329 ng/mL Normal (applies to MEDGEN (St Serum non-numeric Juan C's results) [facility], ) ID Date Data Source [id number] 09/22/2019 12:00:00 AM EST [facility]GEN ([facility], ) Name Value Range Interpretation Description Data Sup porting Code Source(s) Document(s ) Deprecated 4.8 mg/dL Above high normal MEDGEN (St Phosphorus Juan C's [Mass/time] in Medical, ) 24 hour Urine ID Date Data Source [id number] 09/22/2019 12:00:00 AM EST [facility]GEN ([facility], ) Name Value Range Interpretation Code Description Data Lisa rce(s) Supporting Document(s ) RAGINI Normal (applies to MEDGEN (St Interpreta non-numeric results) Juan C's M edical, tion:U ) ID Date Data Source [id number] 09/22/2019 12:00:00 AM EST MEDGEN ([facility], ) Name Value Range Interpretation Description Data Sup porting Code Source(s) Document(s ) Vitamin D, 36.2 Normal (applies to MEDGEN (St 25-Hydroxy ng/mL non-numeric Juan C's results) [facility], ) ID Date Data Source [id number] 09/22/2019 12:00:00 AM EST MEDGEN ([facility], ) Name Value Range Interpretation Code Description Data Supporting Source(s) Document(s ) Albumin, 693.2 Normal (applies to MEDGEN (St Urine ug/mL non-numeric Juan C's results) [facility], ) Alb/Creat 394.1 mg/g Above high normal MEDGEN (St Ratio creat [facility], ) ID Date Data Source [id number] 09/22/2019 12:00:00 AM EST MEDGEN ([facility], ) Name Value Range Interpretation Description Data Sup porting Code Source(s) Document(s ) Free Ecorse 476.00 Above high normal MEDGEN (St Lt mg/L Juan C's Chains,[facility], ) Free Lambda 44.50 mg/L Above high normal MEDGEN (S t Lt Juan C's Chains,Ur [facility], ) Ecorse/Lambd 10.70 Above high normal MEDGEN (St a Ratio,U [facility], ) ID Date Data Source [id number] 09/22/2019 12:00:00 AM EST MEDGEN ([facility], ) Name Value Range Interpretation Description Data Sup porting Code Source(s) Document(s ) Free Ecorse 38.9 mg/L Above high normal MEDGEN (St Lt Chains,S [facility], ) Free Lambda 133.0 mg/L Above high normal MEDGEN (S t Lt Chains,S [facility], ) Ecorse/Lambd 0.29 Normal (applies to MEDGEN (S t a Ratio,S non-numeric Juan C's results) [facility], ) ID Date Data Source [id number] 09/22/2019 12:00:00 AM EST MEDGEN ([facility], ) Name Value Range Interpretation Code Description Data Supporting Source(s) Document(s ) Creatinine 175.9 Normal (applies to MEDGEN (St , Urine mg/dL non-numeric Juan C's results) [facility], ) Protein/Cr 833 mg/g Above high normal MEDGEN (St eat Ratio creat [facility], ) ID Date Data Source [id number] 09/22/2019 12:00:00 AM EST MEDGEN ([facility], ) Name Value Range Interpretation Description Data Sup porting Code Source(s) Document(s ) Immunofixation Normal (applies MEDGEN (S t Result, Serum to non-numeric Juan C's results) [facility], ) Immunoglobulin G, 3973 Above high normal MEDG EN (St Qn, Serum mg/dL [facility], ) Immunoglobulin A, 25 mg/dL Below low normal MEDGE N (St Qn, Serum Juan C's [facility], ) Immunoglobulin M, 13 mg/dL Below low normal MEDGE N (St Qn, Serum [facility]) ID Date Data Source [id number] 09/22/2019 12:00:00 AM EST MEDGEN ([facility], ) Name Value Range Interpretation Description Data Sup porting Code Source(s) Document(s ) Iron 297 ug/dL Normal (applies to MEDGEN (St Bind.Cap.(TIBC non-numeric Juan C's ) results) [facility]) UIBC 222 ug/dL Normal (applies to MEDGEN (St non-numeric Juan C's results) [facility]) Iron 75 ug/dL Normal (applies to MEDGEN (St [Mass/volume] non-numeric Juan C's in Serum or results) [facility], ) Plasma Iron 25 % Normal (applies to MEDGEN (St saturation non-numeric Juan C's [Mass results) [facility]) Fraction] in Serum or Plasma ID Date Data Source [id number] 09/22/2019 12:00:00 AM EST MEDGEN ([facility], ) Name Value Range Interpretation Description Data Sup porting Code Source(s) Document(s ) Protein,Tot 146.6 Normal (applies to MEDGEN (S t al,Urine mg/dL non-numeric Juan C's results) [facility], ) Albumin, U 47.8 % Normal (applies to MEDGEN (St non-numeric Juan C's results) [facility], ) Alpha-1-Nadine 3.5 % Normal (applies to MEDGEN (S t bulin, U non-numeric Juan C's results) [facility]) Alpha-2-Nadine 9.6 % Normal (applies to MEDGEN (S t bulin, U non-numeric Juan C's results) [facility]) Beta 24.4 % Normal (applies to MEDGEN (St Globulin, U non-numeric Juan C's results) [facility]) Gamma 14.8 % Normal (applies to MEDGEN (St Globulin, U non-numeric Juan C's results) [facility]) M-Kevyn, % 9.8 % Above high normal MEDGEN ([facility], ) Please Normal (applies to MEDGEN (St note: non-numeric Juan C's results) Medical, ) PDF . Normal (applies to MEDGEN (St non-numeric Juan C's results) Medical, ) ID Date Data Source [id number] 09/22/2019 12:00:00 AM EST [facility]GEN ([facility], ) Name Value Range Interpretation Description Data Sup porting Code Source(s) Document(s ) Protein 9.0 g/dL Above high normal MEDGEN (St [Mass/volume] in Juan C's Serum or Plasma Medical, ) Microalbumin 4.0 g/dL Normal (applies MEDGEN (St [Mass/time] in to non-numeric Juan C's Urine collected results) Medical, for unspecified PC) duration Ktebj-0-Akqelnyr 0.2 g/dL Normal (applies MEDGEN (St to non-numeric Juan C's results) Medical, PC) Kkpgn-9-Nbjycduc 0.8 g/dL Normal (applies MEDGEN (St to [...] 5.0 g/dL Above high normal MEDGEN ([facility], ) A/G Ratio 0.8 Normal (applies MEDGEN (St to non-numeric Juan C's results) [facility], PC) Please note: Normal (applies MEDGEN (St to non-numeric Juan C's results) Medical, ) PDF . Normal (applies MEDGEN (St to non-numeric Juan C's results) Medical, ) ID Date Data Source [id number] 09/22/2019 12:00:00 AM EST MEDGEN ([facility] [...] to non-numeric Juan C's Urine collected results) [facility], for unspecified PC) duration Ketones Negative Normal [...] results) Medical, ) ID Date Data Source [id number] 09/22/2019 12:00:00 AM EST MEDGEN ([facility] [...] non-numeric Juan C's Body fluid by results) [facility], ) Light microscopy Crystal Type Calcium Normal (applies MEDGEN (St Oxalate to non-numeric Juan C's results) [facility], ) Mucus Threads Present Normal (applies MEDGEN (St to non-numeric Juan C's results) [facility], ) Bacteria Few Normal (applies MEDGEN (St [Presence] in to non-numeric Juan C's Prostatic results) [facility], ) fluid by Light microscopy ID Date Data Source [id number] 09/22/2019 12:00:00 AM EST MEDGEN ([facility], ) Name Value Range Interpretation Description Data Sup porting Code Source(s) Document(s ) Leukocytes 9.5 Normal (applies MEDGEN (St [#/volume] in x10E3/uL to non-numeric Juan C's Blood by results) [facility], ) Automated count Erythrocytes 3.28 Below low normal MEDGEN (St [#/volume] in x10E6/uL Juanc 's Blood by [facility], ) Automated count Hemoglobin 10.9 Below low normal MEDGEN (St [Mass/volume] in g/dL Juan C's Blood [facility], ) Hematocrit 32.1 % Below low normal MEDGEN (St [Volume Juan C's Fraction] of [facility], ) Blood by Automated count MCV 98 fL Above high normal MEDGEN ([facility], ) MCH 33.2 pg Above high normal MEDGEN ([facility], ) MCHC 34.0 Normal (applies MEDGEN (St g/dL to non-numeric Juan C's results) [facility], ) RDW 17.3 % Above high normal [facility]GEN ([facility], ) Platelets 240 Normal (applies MEDGEN (St [#/area] in x10E3/uL to non-numeric Juan C's Blood by results) [facility], ) Microscopy high power field Neutrophils [#] 53 % Normal (applies MEDGEN ( St in Body fluid by to non-numeric Juan C's Manual count results) [facility], ) Lymphs 19 % Normal (applies MEDGEN (St to non-numeric Juan C's results) [facility], ) Monocytes 15 % Normal (applies MEDGEN (St [#/volume] in to non-numeric Juan C's Cord blood results) [facility], ) Eos 11 % Normal (applies MEDGEN [...] x10E3/uL [facility], ) Eos (Absolute) 1.0 Above high [...] results) Medical, ) ID Date Data Source [id number] 09/22/2019 12:00:00 AM EST [facility] ([facility], ) Name Value Range Interpretation Code Description Data Lisa rce(s) Supporting Document(s ) ID Date Data Source [id number] 09/22/2019 12:00:00 AM EST [facility]GEN ([facility], ) Name Value Range Interpretation Code Description Data Supporting Source(s) Document(s ) PTH, Intact 14 pg/mL Below low normal MEDGEN ([facility], ) ID Date Data Source [id number] 09/22/2019 12:00:00 AM EST [facility]GEN ([facility], ) Name Value Range Interpretation Code Description Data Supporting Source(s) Document(s ) Ferritin, 329 ng/mL Normal (applies to MEDGEN (St Serum non-numeric Juan C's results) Medical, ) ID Date Data Source [id number] 09/22/2019 12:00:00 AM EST [facility]GEN ([facility], ) Name Value Range Interpretation Description Data Sup porting Code Source(s) Document(s ) Deprecated 4.8 mg/dL Above high normal MEDGEN (St Phosphorus Juan C's [Mass/time] in [facility], ) 24 hour Urine ID Date Data Source [id number] 09/22/2019 12:00:00 AM EST MEDGEN ([facility], ) Name Value Range Interpretation Code Description Data Lisa rce(s) Supporting Document(s ) ID Date Data Source [id number] 09/22/2019 12:00:00 AM EST MEDGEN ([facility], ) Name Value Range Interpretation Description Data Sup porting Code Source(s) Document(s ) Vitamin D, 36.2 Normal (applies to MEDGEN (St 25-Hydroxy ng/mL non-numeric Juan C's results) [facility], ) ID Date Data Source [id number] 09/22/2019 12:00:00 AM EST MEDGEN ([facility], ) Name Value Range Interpretation Code Description Data Supporting Source(s) Document(s ) Albumin, 693.2 Normal (applies to MEDGEN (St Urine ug/mL non-numeric Juan C's results) [facility], ) Alb/Creat 394.1 mg/g Above high normal MEDGEN (St Ratio creat [facility], ) ID Date Data Source [id number] 09/22/2019 12:00:00 AM EST MEDGEN ([facility], ) Name Value Range Interpretation Description Data Sup porting Code Source(s) Document(s ) Free Ecorse 476.00 Above high normal MEDGEN (St Lt mg/L Juan C's Chains,[facility], ) Free Lambda 44.50 mg/L Above high normal MEDGEN (S t Lt Juan C's Chains,[facility], ) Ecorse/Lambd 10.70 Above high normal MEDGEN (St a Ratio,U [facility], ) ID Date Data Source [id number] 09/22/2019 12:00:00 AM EST MEDGEN ([facility], ) Name Value Range Interpretation Description Data Sup porting Code Source(s) Document(s ) Free Ecorse 38.9 mg/L Above high normal MEDGEN (St Lt Chains,S [facility], ) Free Lambda 133.0 mg/L Above high normal MEDGEN (S t Lt Chains,S [facility], ) Ecorse/Lambd 0.29 Normal (applies to MEDGEN (S t a Ratio,S non-numeric Juan C's results) [facility]) ID Date Data Source [id number] 09/22/2019 12:00:00 AM EST MEDGEN ([facility]) Name Value Range Interpretation Code Description Data Supporting Source(s) Document(s ) Creatinine 175.9 Normal (applies to MEDGEN (St , Urine mg/dL non-numeric Juan C's results) [facility]) Protein/Cr 833 mg/g Above high normal MEDGEN (St eat Ratio creat [facility]) ID Date Data Source [id number] 09/22/2019 12:00:00 AM EST MEDGEN ([facility]) Name Value Range Interpretation Description Data Sup porting Code Source(s) Document(s ) Immunoglobulin G, 3973 Above high normal MEDG EN (St Qn, Serum mg/dL [facility]) Immunoglobulin A, 25 mg/dL Below low normal MEDGE N (St Qn, Serum [facility]) Immunoglobulin M, 13 mg/dL Below low normal MEDGE N (St Qn, Serum [facility]) ID Date Data Source [id number] 09/22/2019 12:00:00 AM EST MEDGEN ([facility]) Name Value Range Interpretation Description Data Sup porting Code Source(s) Document(s ) Iron 297 ug/dL Normal (applies to MEDGEN (St Bind.Cap.(TIBC non-numeric Juan C's ) results) [facility]) UIBC 222 ug/dL Normal (applies to MEDGEN (St non-numeric Juan C's results) [facility]) Iron 25 % Normal (applies to MEDGEN (St saturation non-numeric Juan C's [Mass results) [facility]) Fraction] in Serum or Plasma Iron 75 ug/dL Normal (applies to MEDGEN (St [Mass/volume] non-numeric Juan C's in Serum or results) [facility]) Plasma ID Date Data Source [id number] 09/22/2019 12:00:00 AM EST MEDGEN ([facility]) Name Value Range Interpretation Code Description Data Supporting Source(s) Document(s ) Albumin, U 47.8 % Normal (applies to MEDGEN (St non-numeric Juan C's results) Medical, ) Protein,To 146.6 Normal (applies to MEDGEN (St ruth,Urine mg/dL non-numeric Juan C's results) [facility], ) Alpha-1-Gl 3.5 % Normal (applies to MEDGEN (St obulin, U non-numeric Juan C's results) [facility], ) Alpha-2-Gl 9.6 % Normal (applies to MEDGEN (St obulin, U non-numeric Juan C's results) [facility], ) Gamma 14.8 % Normal (applies to MEDGEN (St Globulin, non-numeric Juan C's U results) [facility], ) Beta 24.4 % Normal (applies to MEDGEN (St Globulin, non-numeric Juan C's U results) [facility], ) M-Kevyn, % 9.8 % Above high normal MEDGEN ([facility], ) PDF . Normal (applies to MEDGEN (St non-numeric Juan C's results) [facility], ) ID Date Data Source [id number] 09/22/2019 12:00:00 AM EST MEDGEN ([facility], ) Name Value Range Interpretation Description Data Sup porting Code Source(s) Document(s ) Protein 9.0 g/dL Above high normal MEDGEN (St [Mass/volume] in Juan C's Serum or Plasma [facility], ) Yetty-2-Cppcivdq 0.2 g/dL Normal (applies MEDGEN (St to non-numeric Juan C's results) [facility], ) Microalbumin 4.0 g/dL Normal (applies MEDGEN (St [Mass/time] in to non-numeric Juan C's Urine collected results) [facility], for unspecified PC) duration Usqcd-1-Omafcjjs 0.8 g/dL Normal (applies MEDGEN (St to non-numeric Juan C's results) [facility], ) Beta globulin 0.8 g/dL Normal (applies MEDGEN (St [Mass/volume] in to non-numeric Juan C's Urine by results) [facility], Electrophoresis PC) Gamma globulin 3.2 g/dL Above high normal MEDGEN (St [Mass/volume] by Juan C's Electrophoresis in Medical, Urine collected ) for unspecified duration M-Kevyn 2.9 g/dL Above high normal MEDGEN ([facility], ) Globulin, Total 5.0 g/dL Above high normal MEDGEN ([facility], ) A/G Ratio 0.8 Normal (applies MEDGEN (St to non-numeric Juan C's results) Medical, ) PDF . Normal (applies MEDGEN (St to non-numeric Juan C's results) Medical, ) ID Date Data Source [id number] 09/22/2019 12:00:00 AM EST MEDGEN ([facility] [...] to non-numeric Juan C's Urine collected results) [facility], for unspecified PC) duration Ketones Negative Normal [...] results) Medical, ) ID Date Data Source [id number] 09/22/2019 12:00:00 AM EST MEDGEN ([facility], ) Name Value Range Interpretation Description Data Sup porting Code Source(s) Document(s ) WBC 0-5 Normal (applies MEDGEN (St to non-numeric Juan C's results) [facility], ) RBC 0-2 Normal (applies MEDGEN (St to non-numeric Juan C's results) [facility], ) Epithelial None seen Normal (applies MEDGEN (St Cells (non to non-numeric Juan C's renal) results) [facility], ) Casts Present Abnormal (applies MEDGEN (St [#/area] in to non-numeric Juan C's Urine results) [facility], ) sediment by Automated count Cast Type Granular Abnormal (applies MEDGEN (St casts to non-numeric Juan C's results) [facility], ) Crystals Present Abnormal (applies MEDGEN (St [#/area] in to non-numeric Juan C's Body fluid by results) [facility], ) Light microscopy Crystal Type Calcium Normal (applies MEDGEN (St Oxalate to non-numeric Juan C's results) [facility], ) Mucus Threads Present Normal (applies MEDGEN (St to non-numeric Juan C's results) [facility], ) Bacteria Few Normal (applies MEDGEN (St [Presence] in to non-numeric Juan C's Prostatic results) [facility], ) fluid by Light microscopy ID Date Data Source [id number] 09/22/2019 12:00:00 AM EST MEDGEN ([facility], ) Name Value Range Interpretation Description Data Sup porting Code Source(s) Document(s ) Leukocytes 9.5 Normal (applies MEDGEN (St [#/volume] in x10E3/uL to non-numeric Juan C's Blood by results) [facility], ) Automated count Erythrocytes 3.28 Below low normal MEDGEN (St [#/volume] in x10E6/uL Juan C's Blood by [facility], ) Automated count Hemoglobin 10.9 Below low normal MEDGEN (St [Mass/volume] in g/dL Juan C's Blood [facility], ) Hematocrit 32.1 % Below low normal MEDGEN (St [Volume Juan C's Fraction] of [facility], ) Blood by Automated count MCV 98 fL Above high normal MEDGEN ([facility], ) MCH 33.2 pg Above high normal MEDGEN ([facility], ) MCHC 34.0 Normal (applies MEDGEN (St g/dL to non-numeric Juan C's results) [facility], ) RDW 17.3 % Above high normal MEDGEN ([facility], ) Platelets 240 Normal (applies MEDGEN (St [#/area] in x10E3/uL to non-numeric Juan C's Blood by results) [facility], ) Microscopy high power field Neutrophils [#] 53 % Normal (applies MEDGEN ( St in Body fluid by to non-numeric Juan C's Manual count results) [facility], ) Lymphs 19 % Normal (applies MEDGEN (St to non-numeric Juan C's results) [facility]) Monocytes 15 % Normal (applies MEDGEN (St [#/volume] in to non-numeric Juan C's Cord blood results) [facility]) Eos 11 % Normal (applies MEDGEN (St to non-numeric Juan C's results) [facility]) Basos 0 % Normal (applies MEDGEN (St to non-numeric Juan C's results) [facility]) Neutrophils 5.1 Normal (applies MEDGEN (St (Absolute) x10E3/uL to non-numeric Juan C's results) [facility]) Monocytes(Absolu 1.5 Above high normal MEDGE N (St te) x10E3/uL Juan C's [facility]) Lymphs 1.8 Normal (applies MEDGEN (St (Absolute) x10E3/uL to non-numeric Juan C's results) [facility]) Eos (Absolute) 1.0 Above high normal MEDGEN (St x10E3/uL Juan C's [facility], ) Baso (Absolute) 0.0 Normal (applies MEDGEN ( St x10E3/uL to non-numeric Juan C's results) [facility], ) Immature 2 % Normal (applies MEDGEN (St Granulocytes to non-numeric Juan C's results) [facility]) Immature Grans 0.2 Above high normal MEDGEN (St (Abs) x10E3/uL [facility]) Hematology Note: Normal (applies MEDGEN (St Comments: to non-numeric Juan C's results) [facility]) ID Date Data Source [id number] 09/22/2019 12:00:00 AM EST MEDGEN ([facility], ) Name Value Range Interpretation Code Description Data Lisa rce(s) Supporting Document(s ) ID Date Data Source [id number] 09/22/2019 12:00:00 AM EST MEDGEN ([facility], ) Name Value Range Interpretation Code Description Data Supporting Source(s) Document(s ) PTH, Intact 14 pg/mL Below low normal MEDGEN ([facility], ) ID Date Data Source [id number] 09/22/2019 12:00:00 AM EST MEDGEN ([facility], ) Name Value Range Interpretation Code Description Data Supporting Source(s) Document(s ) Ferritin, 329 ng/mL Normal (applies to MEDGEN (St Serum non-numeric Juan C's results) Medical, ) ID Date Data Source [id number] 09/22/2019 12:00:00 AM EST MEDGEN ([facility], ) Name Value Range Interpretation Description Data Sup porting Code Source(s) Document(s ) Deprecated 4.8 mg/dL Above high normal MEDGEN (St Phosphorus Juan C's [Mass/time] in [facility], ) 24 hour Urine ID Date Data Source [id number] 09/22/2019 12:00:00 AM EST MEDGEN ([facility], ) Name Value Range Interpretation Code Description Data Lisa rce(s) Supporting Document(s ) ID Date Data Source [id number] 09/22/2019 12:00:00 AM EST MEDGEN ([facility], ) Name Value Range Interpretation Description Data Sup porting Code Source(s) Document(s ) Vitamin D, 36.2 Normal (applies to MEDGEN (St 25-Hydroxy ng/mL non-numeric Juan C's results) Medical, ) ID Date Data Source [id number] 09/22/2019 12:00:00 AM EST MEDGEN ([facility], ) Name Value Range Interpretation Code Description Data Supporting Source(s) Document(s ) Albumin, 693.2 Normal (applies to MEDGEN (St Urine ug/mL non-numeric Juan C's results) [facility], ) Alb/Creat 394.1 mg/g Above high normal MEDGEN (St Ratio creat [facility], ) ID Date Data Source [id number] 09/22/2019 12:00:00 AM EST MEDGEN ([facility], ) Name Value Range Interpretation Description Data Sup porting Code Source(s) Document(s ) Free Ecorse 476.00 Above high normal MEDGEN (St Lt mg/L Juan C's Chains,[facility], ) Free Lambda 44.50 mg/L Above high normal MEDGEN (S t Lt Juan C's Chains,[facility], PC) Ecorse/Lambd 10.70 Above high normal MEDGEN (St a Ratio,U [facility], ) ID Date Data Source [id number] 09/22/2019 12:00:00 AM EST MEDGEN ([facility], ) Name Value Range Interpretation Description Data Sup porting Code Source(s) Document(s ) Free Ecorse 38.9 mg/L Above high normal MEDGEN (St Lt Chains,S [facility], ) Ecorse/Lambd 0.29 Normal (applies to MEDGEN (S t a Ratio,S non-numeric Juan C's results) [facility], ) Free Lambda 133.0 mg/L Above high normal MEDGEN (S t Lt Chains,S [facility], ) ID Date Data Source [id number] 09/22/2019 12:00:00 AM EST MEDGEN ([facility], ) Name Value Range Interpretation Code Description Data Supporting Source(s) Document(s ) Creatinine 175.9 Normal (applies to MEDGEN (St , Urine mg/dL non-numeric Juan C's results) [facility], ) Protein/Cr 833 mg/g Above high normal MEDGEN (St eat Ratio creat [facility], ) ID Date Data Source [id number] 09/22/2019 12:00:00 AM EST MEDGEN ([facility], ) Name Value Range Interpretation Description Data Sup porting Code Source(s) Document(s ) Immunoglobulin A, 25 mg/dL Below low normal MEDGE N (St Qn, Serum [facility], ) Immunoglobulin G, 3973 Above high normal MEDG EN (St Qn, Serum mg/dL [facility], ) Immunoglobulin M, 13 mg/dL Below low normal MEDGE N (St Qn, Serum [facility], ) ID Date Data Source [id number] 09/22/2019 12:00:00 AM EST MEDGEN ([facility], ) Name Value Range Interpretation Description Data Sup porting Code Source(s) Document(s ) Iron 297 ug/dL Normal (applies to MEDGEN (St Bind.Cap.(TIBC non-numeric Juan C's ) results) [facility], ) UIBC 222 ug/dL Normal (applies to MEDGEN (St non-numeric Juan C's results) [facility], ) Iron 75 ug/dL Normal (applies to MEDGEN (St [Mass/volume] non-numeric Juan C's in Serum or results) [facility], ) Plasma Iron 25 % Normal (applies to MEDGEN (St saturation non-numeric Juan C's [Mass results) [facility], ) Fraction] in Serum or Plasma ID Date Data Source [id number] 09/22/2019 12:00:00 AM EST MEDGEN ([facility], ) Name Value Range Interpretation Code Description Data Supporting Source(s) Document(s ) Protein,To 146.6 Normal (applies to MEDGEN (St ruth,Urine mg/dL non-numeric Juan C's results) [facility], ) Alpha-1-Gl 3.5 % Normal (applies to MEDGEN (St obulin, U non-numeric Juan C's results) [facility], ) Albumin, U 47.8 % Normal (applies to MEDGEN (St non-numeric Juan C's results) [facility], ) Alpha-2-Gl 9.6 % Normal (applies to MEDGEN (St obulin, U non-numeric Juan C's results) [facility], ) Beta 24.4 % Normal (applies to MEDGEN (St Globulin, non-numeric Juan C's U results) [facility], ) Gamma 14.8 % Normal (applies to MEDGEN (St Globulin, non-numeric Juan C's U results) [facility], ) PDF . Normal (applies to MEDGEN (St non-numeric Juan C's results) [facility], ) M-Kevyn, % 9.8 % Above high normal MEDGEN ([facility], ) ID Date Data Source [id number] 09/22/2019 12:00:00 AM EST MEDGEN ([facility], ) Name Value Range Interpretation Description Data Sup porting Code Source(s) Document(s ) Protein 9.0 g/dL Above high normal MEDGEN (St [Mass/volume] in Juan C's Serum or Plasma [facility], ) Microalbumin 4.0 g/dL Normal (applies MEDGEN (St [Mass/time] in to non-numeric Juan C's Urine collected results) Medical, for unspecified PC) duration Rtyov-9-Vlqpidav 0.2 g/dL Normal (applies MEDGEN (St to non-numeric Juan C's results) [facility], PC) Mrawc-0-Vetwqxiz 0.8 g/dL Normal (applies MEDGEN (St to non-numeric Juan C's results) Medical, PC) Beta globulin 0.8 g/dL Normal (applies MEDGEN (St [Mass/volume] in to non-numeric Juan C's Urine by results) Medical, Electrophoresis PC) Gamma globulin 3.2 g/dL Above high normal MEDGEN (St [Mass/volume] by [facility] Electrophoresis in Medical, Urine collected PC) for unspecified duration M-Kevyn 2.9 g/dL Above high normal MEDGEN ([facility], ) Globulin, Total 5.0 g/dL Above high normal MEDGEN ([facility], ) A/G Ratio 0.8 Normal (applies MEDGEN (St to non-numeric Juan C's results) [facility], PC) PDF . Normal (applies MEDGEN (St to non-numeric Juan C's results) Medical, ) ID Date Data Source [id number] 09/22/2019 12:00:00 AM EST MEDGEN ([facility], ) Name Value Range Interpretation Description [...] (applies MEDGEN (St [Mass/volume] in to non-numeric Juanc 's Urine collected results) Medical, for unspecified PC) [...] results) Medical, ) ID Date Data Source [id number] 09/22/2019 12:00:00 AM EST MEDGEN ([facility], ) Name Value Range Interpretation Description [...] by Light microscopy ID Date Data Source [id number] 09/22/2019 12:00:00 AM EST MEDGEN ([facility], ) Name Value Range Interpretation Description Data Sup porting Code Source(s) Document(s ) Leukocytes 9.5 Normal (applies MEDGEN (St [#/volume] in x10E3/uL to non-numeric Juan C's Blood by results) [facility]) Automated count Erythrocytes 3.28 Below low normal MEDGEN (St [#/volume] in x10E6/uL Juan C's Blood by [facility]) Automated count Hematocrit 32.1 % Below low normal MEDGEN (St [Volume Juan C's Fraction] of [facility]) Blood by Automated count Hemoglobin 10.9 Below low normal MEDGEN (St [Mass/volume] in g/dL Juan C's Blood [facility]) MCV 98 fL Above high normal MEDGEN ([facility], ) MCH 33.2 pg Above high normal [facility] ([facility], ) MCHC 34.0 Normal (applies MEDGEN (St g/dL to non-numeric Juan C's results) [facility]) RDW 17.3 % Above high normal MEDGEN ([facility], ) Platelets 240 Normal (applies MEDGEN (St [#/area] in x10E3/uL to non-numeric Juan C's Blood by results) [facility]) Microscopy high power field Neutrophils [#] 53 % Normal (applies MEDGEN ( St in Body fluid by to non-numeric Juan C's Manual count results) [facility]) Lymphs 19 % Normal (applies MEDGEN (St to non-numeric Juan C's results) [facility]) Eos 11 % Normal (applies MEDGEN (St to non-numeric Juan C's results) [facility]) Monocytes 15 % Normal (applies MEDGEN (St [#/volume] in to non-numeric Juan C's Cord blood results) [facility]) Neutrophils 5.1 Normal (applies MEDGEN (St (Absolute) x10E3/uL to non-numeric Juan C's results) [facility]) Basos 0 % Normal (applies MEDGEN (St to non-numeric Juan C's results) [facility]) Lymphs 1.8 Normal (applies MEDGEN (St (Absolute) x10E3/uL to non-numeric Juan C's results) [facility]) Eos (Absolute) 1.0 Above high normal MEDGEN (St x10E3/uL [facility]) Monocytes(Absolu 1.5 Above high normal MEDGE N (St te) x10E3/uL [facility]) Baso (Absolute) 0.0 Normal (applies MEDGEN ( St x10E3/uL to non-numeric Juan C's results) Medical, ) Immature Grans 0.2 Above high normal MEDGEN (St (Abs) x10E3/uL Juan C's [facility], ) Immature 2 % Normal (applies MEDGEN (St Granulocytes to non-numeric Juan C's results) Medical, ) Hematology Note: Normal (applies MEDGEN (St Comments: to non-numeric Juan C's results) Medical, ) ID Date Data Source [id number] 09/22/2019 12:00:00 AM EST MEDGEN ([facility], ) Name Value Range Interpretation Code Description Data Lisa rce(s) Supporting Document(s ) ID Date Data Source [id number] 09/22/2019 12:00:00 AM EST MEDGEN ([facility], ) Name Value Range Interpretation Code Description Data Supporting Source(s) Document(s ) PTH, Intact 14 pg/mL Below low normal MEDGEN ([facility], ) ID Date Data Source [id number] 09/22/2019 12:00:00 AM EST MEDGEN ([facility], ) Name Value Range Interpretation Code Description Data Supporting Source(s) Document(s ) Ferritin, 329 ng/mL Normal (applies to MEDGEN (St Serum non-numeric Juan C's results) [facility], ) ID Date Data Source [id number] 09/22/2019 12:00:00 AM EST MEDGEN ([facility], ) Name Value Range Interpretation Description Data Sup porting Code Source(s) Document(s ) Deprecated 4.8 mg/dL Above high normal MEDGEN (St Phosphorus Juan C's [Mass/time] in Medical, ) 24 hour Urine ID Date Data Source [id number] 09/22/2019 12:00:00 AM EST MEDGEN ([facility], ) Name Value Range Interpretation Code Description Data Lisa rce(s) Supporting Document(s ) ID Date Data Source [id number] 09/22/2019 12:00:00 AM EST MEDGEN ([facility], ) Name Value Range Interpretation Description Data Sup porting Code Source(s) Document(s ) Vitamin D, 36.2 Normal (applies to MEDGEN (St 25-Hydroxy ng/mL non-numeric Juan C's results) Medical, ) ID Date Data Source [id number] 09/22/2019 12:00:00 AM EST MEDGEN ([facility]) Name Value Range Interpretation Code Description Data Supporting Source(s) Document(s ) Albumin, 693.2 Normal (applies to MEDGEN (St Urine ug/mL non-numeric Juan C's results) Medical, ) Alb/Creat 394.1 mg/g Above high normal MEDGEN (St Ratio creat Juan C's [facility], PC) ID Date Data Source [id number] 09/22/2019 12:00:00 AM EST MEDGEN ([facility]) Name Value Range Interpretation Description Data Sup porting Code Source(s) Document(s ) Free Ecorse 476.00 Above high normal MEDGEN (St Lt mg/L Juan C's [facility], [facility]) Free Lambda 44.50 mg/L Above high normal MEDGEN (S t Lt Juan C's [facility], [facility]) [place]/Lambd 10.70 Above high normal MEDGEN (St a Ratio,U [facility], ) ID Date Data Source [id number] 09/22/2019 12:00:00 AM EST MEDGEN ([facility]) Name Value Range Interpretation Description Data Sup porting Code Source(s) Document(s ) Free [place] 38.9 mg/L Above high normal MEDGEN (St Lt Chains,S [facility], [facility]) Free Lambda 133.0 mg/L Above high normal MEDGEN (S t Lt Chains,S [facility], [facility]) [place]/Lambd 0.29 Normal (applies to MEDGEN (S t a Ratio,S non-numeric Juan C's results) Medical, ) ID Date Data Source [id number] 09/22/2019 12:00:00 AM EST MEDGEN ([facility]) Name Value Range Interpretation Code Description Data Supporting Source(s) Document(s ) Creatinine 175.9 Normal (applies to MEDGEN (St , Urine mg/dL non-numeric Juan C's results) Medical, ) Protein/Cr 833 mg/g Above high normal MEDGEN (St eat Ratio creat [facility]'s [facility], ) ID Date Data Source [id number] 09/22/2019 12:00:00 AM EST MEDGEN ([facility], ) Name Value Range Interpretation Description Data Sup porting Code Source(s) Document(s ) Immunoglobulin G, 3973 Above high normal MEDG EN (St Qn, Serum mg/dL [facility]) Immunoglobulin A, 25 mg/dL Below low normal MEDGE N (St Qn, Serum [facility]) Immunoglobulin M, 13 mg/dL Below low normal MEDGE N (St Qn, Serum [facility]) ID Date Data Source [id number] 09/22/2019 12:00:00 AM EST MEDGEN ([facility], ) Name Value Range Interpretation Description Data Sup porting Code Source(s) Document(s ) Iron 297 ug/dL Normal (applies to MEDGEN (St Bind.Cap.(TIBC non-numeric Juan C's ) results) [facility]) Iron 75 ug/dL Normal (applies to MEDGEN (St [Mass/volume] non-numeric Juan C's in Serum or results) [facility]) Plasma UIBC 222 ug/dL Normal (applies to MEDGEN (St non-numeric Juan C's results) [facility]) Iron 25 % Normal (applies to MEDGEN (St saturation non-numeric Juan C's [Mass results) [facility]) Fraction] in Serum or Plasma ID Date Data Source [id number] 09/22/2019 12:00:00 AM EST MEDGEN ([facility]) Name Value Range Interpretation Code Description Data Supporting Source(s) Document(s ) Protein,To 146.6 Normal (applies to MEDGEN (St urth,Urine mg/dL non-numeric Juan C's results) [facility], ) Albumin, U 47.8 % Normal (applies to MEDGEN (St non-numeric Juan C's results) [facility]) Alpha-1-Gl 3.5 % Normal (applies to MEDGEN (St obulin, U non-numeric Juan C's results) [facility]) Alpha-2-Gl 9.6 % Normal (applies to MEDGEN (St obulin, U non-numeric Juan C's results) [facility]) Beta 24.4 % Normal (applies to MEDGEN (St Globulin, non-numeric Juan C's U results) [facility]) Gamma 14.8 % Normal (applies to MEDGEN (St Globulin, non-numeric Juan C's U results) [facility], ) M-Kevyn, % 9.8 % Above high normal MEDGEN ([facility], ) PDF . Normal (applies to MEDGEN (St non-numeric Juan C's results) [facility]) ID Date Data Source [id number] 09/22/2019 12:00:00 AM EST [facility] ) Name Value Range Interpretation Description Data Sup porting Code Source(s) Document(s ) Protein 9.0 g/dL Above high normal MEDGEN (St [Mass/volume] in Juan C's Serum or Plasma [facility], ) Microalbumin 4.0 g/dL Normal (applies MEDGEN (St [Mass/time] in to non-numeric Juan C's Urine collected results) [facility], for unspecified PC) duration Goowh-5-Kiijpzor 0.2 g/dL Normal (applies MEDGEN (St to non-numeric Juan C's results) [facility], ) Beta globulin 0.8 g/dL Normal (applies MEDGEN (St [Mass/volume] in to non-numeric Juan C's Urine by results) [facility], Electrophoresis ) Zhxrz-8-Rjctsbyd 0.8 g/dL Normal (applies MEDGEN (St to non-numeric Juan C's results) [facility], ) Gamma globulin 3.2 g/dL Above high normal MEDGEN (St [Mass/volume] by Juan C's Electrophoresis in Medical, Urine collected PC) for unspecified duration M-Kevyn 2.9 g/dL Above high normal MEDGEN ([facility], ) Globulin, Total 5.0 g/dL Above high normal MEDGEN ([facility], ) PDF . Normal (applies MEDGEN (St to non-numeric Juan C's results) [facility], ) A/G Ratio 0.8 Normal (applies MEDGEN (St to non-numeric Juan C's results) [facility], ) ID Date Data Source [id number] 09/22/2019 12:00:00 AM EST [facility], ) Name Value Range Interpretation Description [...] results) Medical, ) ID Date Data Source [id number] 09/22/2019 12:00:00 AM EST MEDGEN ([facility], ) Name Value Range Interpretation Description Data Sup porting Code Source(s) Document(s ) WBC 0-5 Normal (applies MEDGEN (St to non-numeric Juan C's results) Medical, ) RBC 0-2 Normal (applies MEDGEN (St to non-numeric Juan C's results) Medical, ) Epithelial None seen Normal (applies MEDGEN (St Cells (non to non-numeric Jua Nc's renal) results) Medical, ) Cast Type Granular Abnormal (applies MEDGEN (St casts to non-numeric Juan C's results) Medical, ) Casts Present Abnormal (applies MEDGEN (St [#/area] in to non-numeric Juan C's Urine results) Medical, ) sediment by Automated count Crystal Type Calcium Normal (applies MEDGEN (St Oxalate to non-numeric Juan C's results) [facility], ) Crystals Present Abnormal (applies MEDGEN (St [#/area] in to non-numeric Juan C's Body fluid by results) [facility], ) Light microscopy Mucus Threads Present Normal (applies MEDGEN (St to non-numeric Juan C's results) [facility], ) Bacteria Few Normal (applies MEDGEN (St [Presence] in to non-numeric Juan C's Prostatic results) [facility]) fluid by Light microscopy ID Date Data Source [id number] 09/22/2019 12:00:00 AM EST MEDGEN ([facility], ) Name Value Range Interpretation Description Data Sup porting Code Source(s) Document(s ) Leukocytes 9.5 Normal (applies MEDGEN (St [#/volume] in x10E3/uL to non-numeric Juan C's Blood by results) [facility], ) Automated count Erythrocytes 3.28 Below low normal MEDGEN (St [#/volume] in x10E6/uL Juan C's Blood by [facility], ) Automated count Hemoglobin 10.9 Below low normal MEDGEN (St [Mass/volume] in g/dL Juan C's Blood [facility], ) Hematocrit 32.1 % Below low normal MEDGEN (St [Volume Juan C's Fraction] of [facility]) Blood by Automated count MCV 98 fL Above high normal MEDGEN ([facility], ) MCHC 34.0 Normal (applies MEDGEN (St g/dL to non-numeric Juan C's results) [facility]) MCH 33.2 pg Above high normal MEDGEN ([facility], ) RDW 17.3 % Above high normal MEDGEN ([facility], ) Neutrophils [#] 53 % Normal (applies MEDGEN ( St in Body fluid by to non-numeric Juan C's Manual count results) [facility]) Platelets 240 Normal (applies MEDGEN (St [#/area] in x10E3/uL to non-numeric Juan C's Blood by results) [facility]) Microscopy high power field Monocytes 15 % Normal (applies MEDGEN (St [#/volume] in to non-numeric Juan C's Cord blood results) [facility]) Lymphs 19 % Normal (applies MEDGEN (St to non-numeric Juan C's results) [facility]) Eos 11 % Normal (applies MEDGEN [...] x10E3/uL [facility], ) Eos (Absolute) 1.0 Above high normal MEDGEN (St x10E3/uL Juan C's [facility], ) Baso (Absolute) 0.0 Normal (applies MEDGEN ( St x10E3/uL to non-numeric Juan C's results) Medical, ) Immature 2 % Normal (applies MEDGEN (St Granulocytes to non-numeric Juan C's results) Medical, ) Hematology Note: Normal (applies MEDGEN (St Comments: to non-numeric Juan C's results) Medical, ) Immature Grans 0.2 Above high normal MEDGEN (St (Abs) x10E3/uL Juan [facility]'s [facility], ) ID Date Data Source [id number] 09/22/2019 12:00:00 AM EST MEDGEN ([facility], ) Name Value Range Interpretation Code Description Data Supporting Source(s) Document(s ) Ferritin, 329 ng/mL Normal (applies to MEDGEN (St Serum non-numeric Juan C's results) [facility], ) ID Date Data Source [id number] 09/22/2019 12:00:00 AM EST MEDGEN ([facility], ) Name Value Range Interpretation Description Data Sup porting Code Source(s) Document(s ) Deprecated 4.8 mg/dL Above high normal MEDGEN (St Phosphorus Juan C's [Mass/time] in Medical, ) 24 hour Urine ID Date Data Source [id number] 09/22/2019 12:00:00 AM EST MEDGEN ([facility], ) Name Value Range Interpretation Code Description Data Lisa rce(s) Supporting Document(s ) ID Date Data Source [id number] 09/22/2019 12:00:00 AM EST MEDGEN ([facility]) Name Value Range Interpretation Description Data Sup porting Code Source(s) Document(s ) Vitamin D, 42.8 Normal (applies to MEDGEN (St 25-Hydroxy ng/mL non-numeric Juan C's results) Medical, ) Vitamin D, 36.2 Normal (applies to MEDGEN (St 25-Hydroxy ng/mL non-numeric Juan C's results) Medical, ) ID Date Data Source [id number] 09/22/2019 12:00:00 AM EST MEDGEN ([facility]) Name Value Range Interpretation Code Description Data Supporting Source(s) Document(s ) Albumin, 693.2 Normal (applies to MEDGEN (St Urine ug/mL non-numeric Juan C's results) Medical, ) Alb/Creat 394.1 mg/g Above high normal MEDGEN (St Ratio creat [facility], ) ID Date Data Source [id number] 09/22/2019 12:00:00 AM EST MEDGEN ([facility], ) Name Value Range Interpretation Description Data Sup porting Code Source(s) Document(s ) Free Lambda 44.50 mg/L Above high normal MEDGEN (S t Lt [facility]) Free Ecor[place] 476.00 Above high normal MEDGEN (St Lt mg/L [facility], [facility]) [place]/Lambd 10.70 Above high normal MEDGEN (St a Ratio,U [facility], ) ID Date Data Source [id number] 09/22/2019 12:00:00 AM EST MEDGEN ([facility]) Name Value Range Interpretation Description Data Sup porting Code Source(s) Document(s ) Free [place] 38.9 mg/L Above high normal MEDGEN (St Lt Chains,S [facility]) Free Lambda 133.0 mg/L Above high normal MEDGEN (S t Lt Chains,S [facility], [facility]) [place]/Lambd 0.29 Normal (applies to MEDGEN (S t a Ratio,S non-numeric Juan C's results) Medical, ) ID Date Data Source [id number] 09/22/2019 12:00:00 AM EST MEDGEN ([facility]) Name Value Range Interpretation Code Description Data Supporting Source(s) Document(s ) Creatinine 175.9 Normal (applies to MEDGEN (St , Urine mg/dL non-numeric Juan C's results) [facility]) Protein/Cr 833 mg/g Above high normal MEDGEN (St eat Ratio creat [facility]) ID Date Data Source [id number] 09/22/2019 12:00:00 AM EST MEDGEN ([facility]) Name Value Range Interpretation Description Data Sup porting Code Source(s) Document(s ) Immunoglobulin G, 3973 Above high normal MEDG EN (St Qn, Serum mg/dL [facility]) Immunoglobulin M, 13 mg/dL Below low normal MEDGE N (St Qn, Serum [facility]) Immunoglobulin A, 25 mg/dL Below low normal MEDGE N (St Qn, Serum [facility]) ID Date Data Source [id number] 09/22/2019 12:00:00 AM EST MEDGEN ([facility]) Name Value Range Interpretation Description Data Sup porting Code Source(s) Document(s ) Iron 297 ug/dL Normal (applies to MEDGEN (St Bind.Cap.(TIBC non-numeric Juan C's ) results) [facility]) UIBC 222 ug/dL Normal (applies to MEDGEN (St non-numeric Juan C's results) [facility]) Iron 75 ug/dL Normal (applies to MEDGEN (St [Mass/volume] non-numeric Juan C's in Serum or results) [facility]) Plasma Iron 25 % Normal (applies to MEDGEN (St saturation non-numeric Juan C's [Mass results) [facility]) Fraction] in Serum or Plasma ID Date Data Source [id number] 09/22/2019 12:00:00 AM EST MEDGEN ([facility]) Name Value Range Interpretation Code Description Data Supporting Source(s) Document(s ) Protein,To 146.6 Normal (applies to MEDGEN (St ruth,Urine mg/dL non-numeric Juan C's results) [facility]) Albumin, U 47.8 % Normal (applies to MEDGEN (St non-numeric Juan C's results) [facility]) Alpha-2-Gl 9.6 % Normal (applies to MEDGEN (St obulin, U non-numeric Juan C's results) [facility]) Alpha-1-Gl 3.5 % Normal (applies to MEDGEN (St obulin, U non-numeric Juan C's results) Medical, ) Gamma 14.8 % Normal (applies to MEDGEN (St Globulin, non-numeric Juan C's U results) Medical, ) Beta 24.4 % Normal (applies to MEDGEN (St Globulin, non-numeric Juan C's U results) Medical, ) M-Kevyn, % 9.8 % Above high normal MEDGEN ([facility], ) PDF . Normal (applies to MEDGEN (St non-numeric Juan C's results) Medical, ) ID Date Data Source [id number] 09/22/2019 12:00:00 AM EST MEDGEN ([facility], ) Name Value Range Interpretation Description Data Sup porting Code Source(s) Document(s ) Protein 9.0 g/dL Above high normal MEDGEN (St [Mass/volume] in Juan C's Serum or Plasma Medical, ) Microalbumin 4.0 g/dL Normal (applies MEDGEN (St [Mass/time] in to non-numeric Juan C's Urine collected results) [facility], for unspecified PC) duration Ftvtl-9-Juebvfaa 0.2 g/dL Normal (applies MEDGEN (St to non-numeric Juan C's results) Medical, ) Hglqi-1-Cjqvzcqe 0.8 g/dL Normal (applies MEDGEN (St to non-numeric Juan C's results) Medical, ) Gamma globulin 3.2 g/dL Above high normal [facility] (St [Mass/volume] by Juan C's Electrophoresis in Medical, Urine collected PC) for unspecified duration Beta globulin 0.8 g/dL Normal (applies [facility] (St [Mass/volume] in to non-numeric Juan C's Urine by results) Medical, Electrophoresis PC) Globulin, Total 5.0 g/dL Above high normal [facility] ([facility], ) M-Kevyn 2.9 g/dL Above high normal [facility] ([facility], ) A/G Ratio 0.8 Normal (applies [facility] (St to non-numeric Juan C's results) Medical, ) PDF . Normal (applies [facility] (St to non-numeric Juan C's results) Medical, ) ID Date Data Source [id number] 09/22/2019 12:00:00 AM EST [facility] ([facility] [...] results) Medical, PC) ID Date Data Source [id number] 09/22/2019 12:00:00 AM EST [facility] ([facility], ) Name Value Range Interpretation Description Data Sup porting Code Source(s) Document(s ) RBC 0-2 Normal (applies [facility] (St to non-numeric Juan C's results) Medical, PC) WBC 0-5 Normal (applies [facility] (St to non-numeric Juan C's results) Medical, PC) Epithelial None seen Normal (applies [facility] (St Cells (non to non-numeric Juan C's renal) results) [facility], ) Casts Present Abnormal (applies [facility] (St [#/area] in to non-numeric Juan C's Urine results) [facility], ) sediment by Automated count Cast Type Granular Abnormal (applies [facility] (St casts to non-numeric Juan C's results) [facility], ) Crystal Type Calcium Normal (applies [facility] (St Oxalate to non-numeric Juan C's results) [facility], ) Crystals Present Abnormal (applies [facility]GEN (St [#/area] in to non-numeric Juan C's Body fluid by results) [facility], ) Light microscopy Bacteria Few Normal (applies [facility] (St [Presence] in to non-numeric Juan C's Prostatic results) [facility], ) fluid by Light microscopy Mucus Threads Present Normal (applies [facility] (St to non-numeric Juan C's results) [facility], ) ID Date Data Source [id number] 09/22/2019 12:00:00 AM EST [facility] ([facility], ) Name Value Range Interpretation Description Data Sup porting Code Source(s) Document(s ) Erythrocytes 3.28 Below low normal [facility] (St [#/volume] in x10E6/uL Juan C's Blood by [facility], ) Automated count Leukocytes 11.8 Above high normal [facility] (St [#/volume] in x10E3/uL Juan C's Blood by [facility], ) Automated count Hematocrit 31.7 % Below low normal [facility] (St [Volume Juan C's Fraction] of [facility], ) Blood by Automated count Hemoglobin 10.8 Below low normal [facility] (St [Mass/volume] in g/dL Juan C's Blood [facility], ) MCV 97 fL Normal (applies [facility] (St to non-numeric Juan C's results) [facility], ) MCHC 34.1 Normal (applies [facility] (St g/dL to non-numeric Juan C's results) [facility], ) MCH 32.9 pg Normal (applies [facility] (St to non-numeric Juan C's results) [facility], ) Platelets 237 Normal (applies [facility] (St [#/area] in x10E3/uL to non-numeric Juan C's Blood by results) [facility], ) Microscopy high power field RDW 17.5 % Above high normal [facility] ([facility], ) Lymphs 20 % Normal (applies [facility] (St to non-numeric Juan C's results) [facility]) Neutrophils [#] 53 % Normal (applies [facility] ( St in Body fluid by to non-numeric Juan C's Manual count results) [facility]) Monocytes 13 % Normal (applies [facility] (St [#/volume] in to non-numeric Juan C's Cord blood results) [facility]) Basos 1 % Normal (applies [facility] (St to non-numeric Juan C's results) [facility]) Eos 12 % Normal (applies [facility] (St to non-numeric Juan C's results) [facility]) Lymphs 2.4 Normal (applies [facility] (St (Absolute) x10E3/uL to non-numeric Juan C's results) [facility], ) Neutrophils 6.2 Normal (applies [facility] (St (Absolute) x10E3/uL to non-numeric Juan C's results) [facility], ) Eos (Absolute) 1.5 Above high normal [facility] (St x10E3/uL Juan C's [facility], ) Monocytes(Absolu 1.5 Above high normal MEDGE N (St te) x10E3/uL [facility]'s [facility], ) Baso (Absolute) 0.1 Normal (applies [facility]GEN ( St x10E3/uL to non-numeric Juan C's results) [facility], ) Immature 1 % Normal (applies [facility] (St Granulocytes to non-numeric Juan C's results) [facility]) Immature Grans 0.2 Above high normal [facility] (St (Abs) x10E3/uL [facility]'s [facility], ) Hematology Note: Normal (applies [facility] (St Comments: to non-numeric Juan C's results) [facility], ) Leukocytes 9.5 Normal (applies [facility] (St [#/volume] in x10E3/uL to non-numeric Juan C's Blood by results) [facility], ) Automated count Hemoglobin 10.9 Below low normal [facility] (St [Mass/volume] in g/dL Juan C's Blood [facility], ) Erythrocytes 3.28 Below low normal [facility] (St [#/volume] in x10E6/uL Juan C's Blood by [facility], ) Automated count Hematocrit 32.1 % Below low normal [facility] (St [Volume Juan C's Fraction] of [facility], ) Blood by Automated count MCV 98 fL Above high normal [facility] ([facility], ) MCH 33.2 pg Above high normal [facility] ([facility], ) RDW 17.3 % Above high normal [facility] ([facility], ) MCHC 34.0 Normal (applies [facility] (St g/dL to non-numeric Juan C's results) [facility]) Platelets 240 Normal (applies [facility] (St [#/area] in x10E3/uL to non-numeric Juan C's Blood by results) [facility]) Microscopy high power field Neutrophils [#] 53 % Normal (applies [facility] ( St in Body fluid by to non-numeric Juan C's Manual count results) [facility]) Lymphs 19 % Normal (applies [facility] (St to non-numeric Juan C's results) [facility]) Monocytes 15 % Normal (applies [facility] (St [#/volume] in to non-numeric Juan C's Cord blood results) [facility]) Basos 0 % Normal (applies [facility] (St to non-numeric Juan C's results) [facility]) Eos 11 % Normal (applies [facility] (St to non-numeric Juan C's results) [facility]) Lymphs 1.8 Normal (applies [facility] (St (Absolute) x10E3/uL to non-numeric Juan C's results) [facility]) Neutrophils 5.1 Normal (applies [facility] (St (Absolute) x10E3/uL to non-numeric Juan C's results) [facility]) Monocytes(Absolu 1.5 Above high normal MEDGE N (St te) x10E3/uL [facility]'s [facility]) Eos (Absolute) 1.0 Above high normal [facility] (St x10E3/uL [facility]'s [facility], ) Baso (Absolute) 0.0 Normal (applies [facility] ( St x10E3/uL to non-numeric Juan C's results) [facility]) Immature Grans 0.2 Above high normal [facility] (St (Abs) x10E3/uL [facility]) Immature 2 % Normal (applies [facility] (St Granulocytes to non-numeric Juan C's results) [facility]) Hematology Note: Normal (applies [facility] (St Comments: to non-numeric Juan C's results) [facility]) ID Date Data Source [id number] 08/27/2019 12:00:00 AM EST [facility] ([facility], ) Name Value Range Interpretation Description Data Sup porting Code Source(s) Document(s ) No Urine Test not Normal (applies to [facility] (St Received performed non-numeric Juan C's . results) [facility], ) ID Date Data Source [id number] 08/27/2019 12:00:00 AM EST [facility] ([facility], ) Name Value Range Interpretation Description Data Sup porting Code Source(s) Document(s ) Vitamin D, 42.8 Normal (applies to [facility] (St 25-Hydroxy ng/mL non-numeric Juan C's results) Medical, ) ID Date Data Source [id number] 08/27/2019 12:00:00 AM EST [facility] ([facility], ) Name Value Range Interpretation Description Data Sup porting Code Source(s) Document(s ) Hemoglobin 6.2 % Above high normal [facility] (St A1c/Hemoglobin. Juan C's total in Blood [facility], ) ID Date Data Source [id number] 08/27/2019 12:00:00 AM EST [facility] ([facility], ) Name Value Range Interpretation Description Data Sup porting Code Source(s) Document(s ) Vitamin B12 385 pg/mL Normal (applies to [facility]GEN (S t non-numeric Juan C's results) [facility], ) Folate 10.5 Normal (applies to [facility] (St (Folic ng/mL non-numeric Juan C's Acid), Serum results) [facility], ) ID Date Data Source [id number] 08/27/2019 12:00:00 AM EST [facility] ([facility], ) Name Value Range Interpretation Description Data Sup porting Code Source(s) Document(s ) Cholesterol 80 mg/dL Below low normal [facility] (St [Mass/volume] in Juan C's Serum or Plasma [facility], ) Triglyceride 200 Above high normal [facility]GEN (S t [Mass/volume] in mg/dL Juan C's Serum or Plasma [facility], ) HDL Cholesterol 25 mg/dL Below low normal [facility] ([facility], ) VLDL Cholesterol 40 mg/dL Normal (applies [facility] (St Nils to non-numeric Juan C's results) [facility], ) LDL Cholesterol 15 mg/dL Normal (applies [facility] ( St Calc to non-numeric Juan C's results) [facility], ) ID Date Data Source [id number] 08/27/2019 12:00:00 AM EST [facility] ([facility], ) Name Value Range Interpretation Description Data [...] results) Medical, ) ID Date Data Source [id number] 08/27/2019 12:00:00 AM EST [facility] ([facility], ) Name Value Range Interpretation Description Data Sup porting Code Source(s) Document(s ) Glucose 87 mg/dL Normal (applies [facility] (St [Mass/volume] in to non-numeric Juan C's Urine collected for results) [facility], [facility] duration Urea nitrogen 36 mg/dL Above high [facility] (St [Mass/volume] in normal Juan C's Serum or Plasma [facility], ) eGFR If NonAfricn 21 Below low normal MEDGE N (St Am mL/min/1 Juan C's .73 [facility], ) Creatinine 2.81 Above high [facility]GEN (St [Interpretation] in mg/dL normal Juan C's Urine [facility], ) eGFR If Africn Am 24 Below low normal MEDGE N (St mL/min/1 Juan C's .73 [facility], ) BUN/Creatinine 13 Normal (applies [facility]GEN (S t Ratio to non-numeric Juan C's results) [facility], ) Sodium 135 Normal (applies [facility] (St [...] non-numeric Juan C's Urine collected for results) [facility], unspecified ) duration Protein 9.0 g/dL Above high [facility]GEN (St [Mass/volume] in normal Juan C's Serum or Plasma Medical, ) Microalbumin 4.2 g/dL Normal (applies [facility] (St [Mass/time] in to non-numeric Juan C's Urine collected for results) [facility], unspecified ) duration Globulin, Total 4.8 g/dL Above high [facility]GEN (St normal [facility], ) A/G Ratio 0.9 Below low normal [facility] ([facility], ) Bilirubin.total 0.3 Normal (applies [facility]GEN ( [...] activity/volume] in PC) Serum or Plasma Aspartate 22 IU/L Normal (applies [facility]GEN (St aminotransferase to non-numeric Juan C's [Enzymatic results) Medical, activity/volume] in PC) Serum or Plasma ID Date Data Source [id number] 08/27/2019 12:00:00 AM EST [facility] ([facility], ) Name Value Range Interpretation Description Data Sup porting Code Source(s) Document(s ) Leukocytes 11.8 Above high normal [facility] (St [#/volume] in x10E3/uL Juan C's Blood by [facility], ) Automated count Erythrocytes 3.28 Below low normal [facility] (St [#/volume] in x10E6/uL Juan C's Blood by [facility], ) Automated count Hemoglobin 10.8 Below low normal [facility] (St [Mass/volume] in g/dL Juan C's Blood [facility], ) MCV 97 fL Normal (applies [facility]GEN (St to non-numeric Juan C's results) [facility], ) Hematocrit 31.7 % Below low normal [facility] (St [Volume Juan C's Fraction] of [facility], ) Blood by Automated count MCH 32.9 pg Normal (applies [facility]GEN (St to non-numeric Juan C's results) [facility], ) MCHC 34.1 Normal (applies [facility]GEN (St g/dL to non-numeric Juan C's results) [facility], ) RDW 17.5 % Above high normal [facility] ([facility], ) Neutrophils [#] 53 % Normal (applies [facility] ( St in Body fluid by to non-numeric Juan C's Manual count results) [facility], ) Platelets 237 Normal (applies [facility] (St [#/area] in x10E3/uL to non-numeric Juan C's Blood by results) [facility], ) Microscopy high power field Lymphs 20 % Normal (applies [facility]GEN (St to non-numeric Juan C's results) [facility], ) Monocytes 13 % Normal (applies [facility]GEN (St [#/volume] in to non-numeric Juan C's Cord blood results) [facility], ) Eos 12 % Normal (applies [facility] (St to non-numeric Juan C's results) [facility], ) Neutrophils 6.2 Normal (applies [facility]GEN (St (Absolute) x10E3/uL to non-numeric Juan C's results) [facility], ) Basos 1 % Normal (applies [facility]GEN (St to non-numeric Juan C's results) [facility], ) Lymphs 2.4 Normal (applies [facility]GEN (St (Absolute) x10E3/uL to non-numeric Juan C's results) [facility], ) Monocytes(Absolu 1.5 Above high normal MEDGE N (St te) x10E3/uL Juan C's [facility], ) Baso (Absolute) 0.1 Normal (applies [facility] ( St x10E3/uL to non-numeric Juan C's results) [facility], ) Eos (Absolute) 1.5 Above high normal [facility] (St x10E3/uL Juan C's [facility], ) Immature 1 % Normal (applies [facility]GEN (St Granulocytes to non-numeric Juan C's results) Medical, ) Immature Grans 0.2 Above high normal [facility] (St (Abs) x10E3/uL Juan C's [facility], ) Hematology Note: Normal (applies [facility]GEN (St Comments: to non-numeric Juan C's results) Medical, ) ID Date Data Source [id number] 08/27/2019 12:00:00 AM EST [facility] ([facility], ) Name Value Range Interpretation Code Description Data Lisa rce(s) Supporting Document(s ) TSH 3.560 Normal (applies to [facility] (St uIU/mL non-numeric Juan C's results) Medical, ) T4,Free(D 1.22 ng/dL Normal (applies to [facility]GEN (St irect) non-numeric Juan C's results) Medical, ) ID Date Data Source [id number] 08/27/2019 12:00:00 AM EST [facility] ([facility], ) Name Value Range Interpretation Description Data Sup porting Code Source(s) Document(s ) No Urine Test not Normal (applies to [facility]GEN (St Received performed non-numeric Juan C's . results) Medical, ) ID Date Data Source [id number] 08/27/2019 12:00:00 AM EST [facility] ([facility], ) Name Value Range Interpretation Description Data Sup porting Code Source(s) Document(s ) Vitamin D, 42.8 Normal (applies to [facility]GEN (St 25-Hydroxy ng/mL non-numeric Juan C's results) Medical, ) ID Date Data Source [id number] 08/27/2019 12:00:00 AM EST [facility] ([facility], ) Name Value Range Interpretation Description Data Sup porting Code Source(s) Document(s ) Hemoglobin 6.2 % Above high normal [facility] (St A1c/Hemoglobin. Juan C's total in Blood [facility], ) ID Date Data Source [id number] 08/27/2019 12:00:00 AM EST [facility] ([facility], ) Name Value Range Interpretation Description Data Sup porting Code Source(s) Document(s ) Vitamin B12 385 pg/mL Normal (applies to MEDGEN (S t non-numeric Juan C's results) Medical, ) Folate 10.5 Normal (applies to [facility]GEN (St (Folic ng/mL non-numeric Juan C's Acid), Serum results) Medical, ) ID Date Data Source [id number] 08/27/2019 12:00:00 AM EST [facility] ([facility]) Name Value Range Interpretation Description Data Sup porting Code Source(s) Document(s ) Cholesterol 80 mg/dL Below low normal [facility] (St [Mass/volume] in Juan C's Serum or Plasma [facility], ) Triglyceride 200 Above high normal [facility]GEN (S t [Mass/volume] in mg/dL Juan C's Serum or Plasma [facility], ) HDL Cholesterol 25 mg/dL Below low normal [facility] ([facility], ) VLDL Cholesterol 40 mg/dL Normal (applies MEDGEN (St Nils to non-numeric Juan C's results) Medical, ) LDL Cholesterol 15 mg/dL Normal (applies MEDGEN ( St Calc to non-numeric Juan C's results) [facility], ) ID Date Data Source [id number] 08/27/2019 12:00:00 AM EST [facility] ([facility]) Name Value Range Interpretation Description [...] results) Medical, ) ID Date Data Source [id number] 08/27/2019 12:00:00 AM EST [facility] ([facility]) Name Value Range Interpretation Description Data Sup porting Code Source(s) Document(s ) Glucose 87 mg/dL Normal (applies [facility] (St [Mass/volume] in to non-numeric Juan C's Urine collected for results) [facility] ) duration Urea nitrogen 36 mg/dL Above high [facility]GEN (St [Mass/volume] in normal Juan C's Serum or Plasma Medical, ) Creatinine 2.81 Above high [facility]GEN (St [Interpretation] in mg/dL normal Juan C's Urine [facility], ) eGFR If NonAfricn 21 Below low normal MEDGE N (St Am mL/min/1 [facility]'s .73 [facility], ) BUN/Creatinine 13 Normal (applies MEDGEN (S t Ratio to non-numeric Juan C's results) Medical, ) eGFR If Africn Am 24 Below low normal MEDGE N (St mL/min/1 [facility]'s .73 [facility], ) Sodium 135 Normal (applies [facility]GEN (St [Moles/volume] in mmol/L to non-numeric Juan C's Serum or Plasma results) Medical, ) Potassium 4.1 Normal (applies [facility]GEN (St [Mass/volume] in mmol/L to non-numeric Juan C's Blood results) Medical, ) Chloride 102 Normal (applies [facility]GEN (St [Moles/volume] in mmol/L to non-numeric Juan C's Serum or Plasma results) [facility], ) Carbon dioxide, 20 Normal (applies MEDGEN [...] Above high MEDGEN (St normal Juan C's [facility], ) A/G Ratio 0.9 Below low normal [facility] ([facility], ) Bilirubin.total 0.3 Normal (applies [facility]GEN ( St [Mass/volume] in mg/dL to non-numeric Juan C's Serum or Plasma results) Medical, ) Alkaline 53 IU/L Normal (applies [facility]GEN (St phosphatase to non-numeric Juan C's [Enzymatic results) [facility], activity/volume] in ) Serum, Plasma or Blood Alanine 20 IU/L Normal (applies [facility]GEN (St aminotransferase to non-numeric Juan C's [Enzymatic results) Medical, activity/volume] in ) Serum or Plasma Aspartate 22 IU/L Normal (applies [facility]GEN (St aminotransferase to non-numeric Juan C's [Enzymatic results) Medical, activity/volume] in ) Serum or Plasma ID Date Data Source [id number] 08/27/2019 12:00:00 AM EST [facility] ([facility], ) Name Value Range Interpretation Description Data Sup porting Code Source(s) Document(s ) Leukocytes 11.8 Above high normal [facility] (St [#/volume] in x10E3/uL Juan C's Blood by [facility], ) Automated count Erythrocytes 3.28 Below low normal [facility]GEN (St [#/volume] in x10E6/uL Juan C's Blood by [facility], ) Automated count Hemoglobin 10.8 Below low normal [facility] (St [Mass/volume] in g/dL Juan C's Blood [facility], ) Hematocrit 31.7 % Below low normal [facility]GEN (St [Volume Juan C's Fraction] of Medical, ) Blood by Automated count MCV 97 fL Normal (applies MEDGEN (St to non-numeric Juan C's results) [facility], ) MCH 32.9 pg Normal (applies MEDGEN (St to non-numeric Juan C's results) [facility], ) MCHC 34.1 Normal (applies MEDGEN (St g/dL to non-numeric Juan C's results) [facility], ) RDW 17.5 % Above high normal [facility] ([facility], ) Platelets 237 Normal (applies MEDGEN (St [#/area] in x10E3/uL to non-numeric Juan C's Blood by results) Medical, ) Microscopy high power field Neutrophils [#] 53 % Normal (applies MEDGEN ( St in Body fluid by to non-numeric Juan C's Manual count results) [facility], ) Lymphs 20 % Normal (applies MEDGEN (St to non-numeric Juan C's results) Medical, ) Monocytes 13 % Normal (applies MEDGEN (St [#/volume] in to non-numeric Juan C's Cord blood results) [facility], ) Eos 12 % Normal (applies MEDGEN (St to non-numeric Juan C's results) Medical, ) Neutrophils 6.2 Normal (applies MEDGEN (St (Absolute) x10E3/uL to non-numeric Juan C's results) [facility], ) Basos 1 % Normal (applies MEDGEN (St to non-numeric Juan C's results) [facility], ) Lymphs 2.4 Normal (applies MEDGEN (St (Absolute) x10E3/uL to non-numeric Juan C's results) [facility], ) Monocytes(Absolu 1.5 Above high normal MEDGE N (St te) x10E3/uL Juan C's [facility], ) Eos (Absolute) 1.5 Above high normal [facility]GEN (St x10E3/uL [facility], ) Baso (Absolute) 0.1 Normal (applies MEDGEN ( St x10E3/uL to non-numeric Juan C's results) [facility], ) Immature 1 % Normal (applies MEDGEN (St Granulocytes to non-numeric Juan C's results) [facility], ) Immature Grans 0.2 Above high normal MEDGEN (St (Abs) x10E3/uL Juan C's [facility], ) Hematology Note: Normal (applies MEDGEN (St Comments: to non-numeric Juan C's results) [facility], ) ID Date Data Source [id number] 08/27/2019 12:00:00 AM EST [facility] ([facility], ) Name Value Range Interpretation Code Description Data Lisa rce(s) Supporting Document(s ) TSH 3.560 Normal (applies to MEDGEN (St uIU/mL non-numeric Juan C's results) [facility], ) T4,Free(D 1.22 ng/dL Normal (applies to MEDGEN (St irect) non-numeric Juan C's results) [facility], ) ID Date Data Source [id number] 08/27/2019 12:00:00 AM EST [facility] ([facility], ) Name Value Range Interpretation Description Data Sup porting Code Source(s) Document(s ) No Urine Test not Normal (applies to MEDGEN (St Received performed non-numeric Juan C's . results) [facility]) ID Date Data Source [id number] 08/27/2019 12:00:00 AM EST [facility] ([facility], ) Name Value Range Interpretation Description Data Sup porting Code Source(s) Document(s ) Vitamin D, 42.8 Normal (applies to MEDGEN (St 25-Hydroxy ng/mL non-numeric Juan C's results) [facility], ) ID Date Data Source [id number] 08/27/2019 12:00:00 AM EST [facility] ([facility], ) Name Value Range Interpretation Description Data Sup porting Code Source(s) Document(s ) Hemoglobin 6.2 % Above high normal MEDGEN (St A1c/Hemoglobin. Juan C's total in Blood [facility], ) ID Date Data Source [id number] 08/27/2019 12:00:00 AM EST [facility] ([facility], ) Name Value Range Interpretation Description Data Sup porting Code Source(s) Document(s ) Vitamin B12 385 pg/mL Normal (applies to [facility] (S t non-numeric Juan C's results) Medical, ) Folate 10.5 Normal (applies to [facility] (St (Folic ng/mL non-numeric Juan C's Acid), Serum results) [facility], ) ID Date Data Source [id number] 08/27/2019 12:00:00 AM EST [facility] ([facility], ) Name Value Range Interpretation Description Data Sup porting Code Source(s) Document(s ) No Urine Test not Normal (applies to [facility] (St Received performed non-numeric Juan C's . results) [facility], ) ID Date Data Source [id number] 08/27/2019 12:00:00 AM EST [facility] ([facility], ) Name Value Range Interpretation Description Data Sup porting Code Source(s) Document(s ) Vitamin D, 42.8 Normal (applies to [facility] (St 25-Hydroxy ng/mL non-numeric Juan C's results) Medical, ) ID Date Data Source [id number] 08/27/2019 12:00:00 AM EST [facility] ([facility], ) Name Value Range Interpretation Description Data Sup porting Code Source(s) Document(s ) Hemoglobin 6.2 % Above high normal [facility] (St A1c/Hemoglobin. Juan C's total in Blood [facility], ) ID Date Data Source [id number] 08/27/2019 12:00:00 AM EST [facility] ([facility], ) Name Value Range Interpretation Description Data Sup porting Code Source(s) Document(s ) Vitamin B12 385 pg/mL Normal (applies to [facility]GEN (S t non-numeric Juan C's results) Medical, ) Folate 10.5 Normal (applies to [facility]GEN (St (Folic ng/mL non-numeric Juan C's Acid), Serum results) [facility], ) ID Date Data Source [id number] 08/27/2019 12:00:00 AM EST [facility] ([facility], ) Name Value Range Interpretation Description Data Sup porting Code Source(s) Document(s ) Cholesterol 80 mg/dL Below low normal [facility] (St [Mass/volume] in Juan C's Serum or Plasma [facility], ) Triglyceride 200 Above high normal [facility]GEN (S t [Mass/volume] in mg/dL Juan C's Serum or Plasma [facility], ) HDL Cholesterol 25 mg/dL Below low normal [facility] ([facility], ) VLDL Cholesterol 40 mg/dL Normal (applies [facility] (St Nils to non-numeric Juan C's results) [facility], ) LDL Cholesterol 15 mg/dL Normal (applies [facility] ( St Calc to non-numeric Juan C's results) [facility], ) ID Date Data Source [id number] 08/27/2019 12:00:00 AM EST [facility] ([facility], ) Name Value Range Interpretation Description Data Sup porting Code Source(s) Document(s ) Specific gravity Test not Normal (applies [facility] (St of Pericardial performe to non-numeric Juan C's fluid by d. results) [facility], ) Refractometry Protein Test not Normal (applies [...] results) Medical, ) ID Date Data Source [id number] 08/27/2019 12:00:00 AM EST [facility] ([facility], ) Name Value Range Interpretation Description Data Sup porting Code Source(s) Document(s ) Glucose 87 mg/dL Normal (applies [facility]GEN (St [Mass/volume] in to non-numeric Juan C's Urine collected for results) Medical, unspecified ) duration Urea nitrogen 36 mg/dL Above high [facility]GEN (St [Mass/volume] in normal Juan C's Serum or Plasma [facility], ) Creatinine 2.81 Above high [facility]GEN (St [Interpretation] in mg/dL normal Juan C's Urine [facility], ) eGFR If NonAfricn 21 Below low normal MEDGE N (St Am mL/min/1 [facility]'s .73 [facility], ) eGFR If Africn Am 24 Below low normal MEDGE N (St mL/min/1 [facility]'s 73 [facility], ) BUN/Creatinine 13 Normal (applies [facility]GEN (S t Ratio to non-numeric Juan C's results) [facility], ) Sodium 135 Normal (applies [facility] (St [Moles/volume] in mmol/L to non-numeric Juan C's Serum or Plasma results) [facility], ) Potassium 4.1 Normal (applies [facility] (St [Mass/volume] in mmol/L to non-numeric Juan C's Blood results) [facility], ) Chloride 102 Normal (applies [facility] (St [Moles/volume] in mmol/L to non-numeric Juan C's Serum or Plasma results) [facility], ) Carbon dioxide, 20 Normal (applies [facility]GEN ( St total mmol/L to non-numeric Juan C's [Moles/volume] in results) [facility], Serum or Plasma [facility]) Calcium 9.8 Normal (applies [facility] (St [Moles/volume] in mg/dL to non-numeric Juan C's Urine collected for results) [facility], unspecified ) duration Protein 9.0 g/dL Above high [facility] (St [Mass/volume] in normal Juan C's Serum or Plasma [facility], ) Microalbumin 4.2 g/dL Normal (applies [facility] (St [Mass/time] in to non-numeric Juan C's Urine collected for results) [facility], unspecified ) duration A/G Ratio 0.9 Below low normal [facility] ([facility], ) Globulin, Total 4.8 g/dL Above high [facility] (St normal Juan C's [facility], ) Bilirubin.total 0.3 Normal (applies MEDGEN [...] Serum or Plasma ID Date Data Source [id number] 08/27/2019 12:00:00 AM EST [facility] ([facility], ) Name Value Range Interpretation Description Data Sup porting Code Source(s) Document(s ) Leukocytes 11.8 Above high normal [facility] (St [#/volume] in x10E3/uL Juan C's Blood by [facility], ) Automated count Hemoglobin 10.8 Below low normal [facility] (St [Mass/volume] in g/dL Juan C's Blood [facility], ) Erythrocytes 3.28 Below low normal [facility] (St [#/volume] in x10E6/uL Juan C's Blood by [facility], ) Automated count Hematocrit 31.7 % Below low normal [facility] (St [Volume Juan C's Fraction] of [facility], ) Blood by Automated count MCV 97 fL Normal (applies [facility]GEN (St to non-numeric Juan C's results) [facility], ) MCH 32.9 pg Normal (applies [facility] (St to non-numeric Juan C's results) [facility], ) MCHC 34.1 Normal (applies [facility] (St g/dL to non-numeric Juan C's results) [facility], ) Platelets 237 Normal (applies [facility] (St [#/area] in x10E3/uL to non-numeric Juan C's Blood by results) [facility], ) Microscopy high power field RDW 17.5 % Above high normal [facility] ([facility], ) Neutrophils [#] 53 % Normal (applies [facility]GEN ( St in Body fluid by to non-numeric Juan C's Manual count results) [facility], ) Lymphs 20 % Normal (applies [facility] (St to non-numeric Juan C's results) [facility], ) Monocytes 13 % Normal (applies [facility] (St [#/volume] in to non-numeric Juan C's Cord blood results) Medical, ) Eos 12 % Normal (applies [facility] (St to non-numeric Juan C's results) Medical, ) Basos 1 % Normal (applies [facility] (St to non-numeric Juan C's results) [facility], ) Neutrophils 6.2 Normal (applies [facility] (St (Absolute) x10E3/uL to non-numeric Juan C's results) [facility], ) Monocytes(Absolu 1.5 Above high normal MEDGE N (St te) x10E3/uL Juan C's [facility], ) Lymphs 2.4 Normal (applies [facility]GEN (St (Absolute) x10E3/uL to non-numeric Juan C's results) [facility], ) Eos (Absolute) 1.5 Above high normal [facility] (St x10E3/uL Juan C's [facility], ) Baso (Absolute) 0.1 Normal (applies [facility] ( St x10E3/uL to non-numeric Juan C's results) [facility], ) Immature 1 % Normal (applies [facility]GEN (St Granulocytes to non-numeric Juan C's results) [facility], ) Immature Grans 0.2 Above high normal [facility] (St (Abs) x10E3/uL Juan C's [facility], ) Hematology Note: Normal (applies [facility]GEN (St Comments: to non-numeric Juan C's results) [facility], ) ID Date Data Source [id number] 08/27/2019 12:00:00 AM EST [facility] ([facility], ) Name Value Range Interpretation Code Description Data Lisa rce(s) Supporting Document(s ) TSH 3.560 Normal (applies to [facility] (St uIU/mL non-numeric Juan C's results) [facility], ) T4,Free(D 1.22 ng/dL Normal (applies to [facility] (St irect) non-numeric Juan C's results) [facility], ) ID Date Data Source [id number] 08/27/2019 12:00:00 AM EST [facility] ([facility], ) Name Value Range Interpretation Description Data Sup porting Code Source(s) Document(s ) No Urine Test not Normal (applies to [facility] (St Received performed non-numeric Juan C's . results) [facility], ) ID Date Data Source [id number] 08/27/2019 12:00:00 AM EST [facility] ([facility], ) Name Value Range Interpretation Description Data Sup porting Code Source(s) Document(s ) Vitamin D, 42.8 Normal (applies to [facility] (St 25-Hydroxy ng/mL non-numeric Juan C's results) [facility], ) ID Date Data Source [id number] 08/27/2019 12:00:00 AM EST [facility] ([facility], ) Name Value Range Interpretation Description Data Sup porting Code Source(s) Document(s ) Hemoglobin 6.2 % Above high normal [facility] (St A1c/Hemoglobin. Juan C's total in Blood [facility], ) ID Date Data Source [id number] 08/27/2019 12:00:00 AM EST [facility] ([facility], ) Name Value Range Interpretation Description Data Sup porting Code Source(s) Document(s ) Vitamin B12 385 pg/mL Normal (applies to MEDGEN (S t non-numeric Juan C's results) [facility], ) Folate 10.5 Normal (applies to [facility] (St (Folic ng/mL non-numeric Juan C's Acid), Serum results) [facility], ) ID Date Data Source [id number] 08/27/2019 12:00:00 AM EST [facility] ([facility], ) Name Value Range Interpretation Description Data Sup porting Code Source(s) Document(s ) Triglyceride 200 Above high normal [facility]GEN (S t [Mass/volume] in mg/dL Juan C's Serum or Plasma [facility], ) Cholesterol 80 mg/dL Below low normal [facility] (St [Mass/volume] in Juan C's Serum or Plasma [facility], ) HDL Cholesterol 25 mg/dL Below low normal [facility] ([facility], ) VLDL Cholesterol 40 mg/dL Normal (applies [facility] (St Nils to non-numeric Juan C's results) [facility], ) LDL Cholesterol 15 mg/dL Normal (applies [facility] ( St Calc to non-numeric Juan C's results) [facility], ) ID Date Data Source [id number] 08/27/2019 12:00:00 AM EST [facility] ([facility], ) Name Value Range Interpretation Description [...] results) Medical, ) ID Date Data Source [id number] 08/27/2019 12:00:00 AM EST [facility] ([facility], ) Name Value Range Interpretation Description Data Sup porting Code Source(s) Document(s ) Glucose 87 mg/dL Normal (applies [facility]GEN (St [Mass/volume] in to non-numeric Juan C's Urine collected for results) [facility], unspecified [facility]) duration Urea nitrogen 36 mg/dL Above high [facility] (St [Mass/volume] in normal Juan C's Serum or Plasma Medical, ) Creatinine 2.81 Above high [facility] (St [Interpretation] in mg/dL normal Juan C's Urine [facility], ) eGFR If NonAfricn 21 Below low normal MEDGE N (St Am mL/min/1 Juan C's .73 [facility], ) eGFR If Africn Am 24 Below low normal MEDGE N (St mL/min/1 Juan C's .73 [facility], ) BUN/Creatinine 13 Normal (applies [facility]GEN (S t Ratio to non-numeric Juan C's results) Medical, ) Potassium 4.1 Normal (applies [facility] (St [Mass/volume] in mmol/L to non-numeric Juan C's Blood results) Medical, ) Sodium 135 Normal (applies [facility] (St [Moles/volume] in mmol/L to non-numeric Juan C's Serum or Plasma results) Medical, ) Chloride 102 Normal (applies [facility] (St [Moles/volume] in mmol/L to non-numeric Juan C's Serum or Plasma results) Medical, ) Carbon dioxide, 20 Normal (applies [facility]GEN ( St total mmol/L to non-numeric Juan C's [Moles/volume] in results) Medical, Serum or Plasma [facility]) Calcium 9.8 Normal (applies [facility] (St [Moles/volume] in mg/dL to non-numeric Juan C's Urine collected for results) [facility], unspecified ) duration Microalbumin 4.2 g/dL Normal (applies [facility]GEN (St [Mass/time] in to non-numeric Juan C's Urine collected for results) Medical, unspecified ) duration Protein 9.0 g/dL Above high [facility] (St [Mass/volume] in normal Juan C's Serum or Plasma [facility], ) Globulin, Total 4.8 g/dL Above high [facility] (St normal [facility], ) A/G Ratio 0.9 Below low normal [facility] ([facility], ) Bilirubin.total 0.3 Normal (applies MEDGEN ( St [Mass/volume] in mg/dL to non-numeric Juan C's Serum or Plasma results) [facility], ) Aspartate 22 IU/L Normal (applies MEDGEN [...] Serum or Plasma ID Date Data Source [id number] 08/27/2019 12:00:00 AM EST [facility] ([facility], ) Name Value Range Interpretation Description Data Sup porting Code Source(s) Document(s ) Leukocytes 11.8 Above high normal [facility] (St [#/volume] in x10E3/uL Juan C's Blood by [facility], ) Automated count Erythrocytes 3.28 Below low normal [facility] (St [#/volume] in x10E6/uL Juan C's Blood by [facility], ) Automated count Hemoglobin 10.8 Below low normal [facility] (St [Mass/volume] in g/dL Juan C's Blood [facility], ) Hematocrit 31.7 % Below low normal [facility] (St [Volume Juan C's Fraction] of [facility], ) Blood by Automated count MCV 97 fL Normal (applies MEDGEN (St to non-numeric Juan C's results) [facility], ) MCH 32.9 pg Normal (applies MEDGEN (St to non-numeric Juan C's results) [facility], ) MCHC 34.1 Normal (applies [facility]GEN (St g/dL to non-numeric Juan C's results) [facility], ) RDW 17.5 % Above high normal [facility] ([facility], ) Platelets 237 Normal (applies MEDGEN (St [#/area] in x10E3/uL to non-numeric Juan C's Blood by results) [facility], ) Microscopy high power field Neutrophils [#] 53 % Normal (applies MEDGEN ( St in Body fluid by to non-numeric Juan C's Manual count results) [facility], ) Lymphs 20 % Normal (applies [facility]GEN (St to non-numeric Juan C's results) [facility], ) Monocytes 13 % Normal (applies [facility]GEN (St [#/volume] in to non-numeric Juan C's Cord blood results) [facility], ) Eos 12 % Normal (applies [facility]GEN (St to non-numeric Juan C's results) [facility], ) Basos 1 % Normal (applies [facility]GEN (St to non-numeric Juan C's results) [facility], ) Neutrophils 6.2 Normal (applies MEDGEN (St (Absolute) x10E3/uL to non-numeric Juan C's results) [facility], ) Lymphs 2.4 Normal (applies [facility]GEN (St (Absolute) x10E3/uL to non-numeric Juan C's results) [facility], ) Monocytes(Absolu 1.5 Above high normal MEDGE N (St te) x10E3/uL Juan C's [facility], ) Baso (Absolute) 0.1 Normal (applies [facility]GEN ( St x10E3/uL to non-numeric Juan C's results) [facility], ) Eos (Absolute) 1.5 Above high normal [facility] (St x10E3/uL Juan C's [facility], ) Immature 1 % Normal (applies [facility]GEN (St Granulocytes to non-numeric Juan C's results) [facility], ) Immature Grans 0.2 Above high normal [facility] (St (Abs) x10E3/uL Juan C's [facility], ) Hematology Note: Normal (applies [facility]GEN (St Comments: to non-numeric Juan C's results) [facility], ) ID Date Data Source [id number] 08/27/2019 12:00:00 AM EST [facility] ([facility], ) Name Value Range Interpretation Code Description Data Lisa rce(s) Supporting Document(s ) TSH 3.560 Normal (applies to [facility] (St uIU/mL non-numeric Juan C's results) Medical, ) T4,Free(D 1.22 ng/dL Normal (applies to [facility]GEN (St irect) non-numeric Juan C's results) [facility], ) ID Date Data Source [id number] 08/27/2019 12:00:00 AM EST [facility] ([facility], ) Name Value Range Interpretation Description Data Sup porting Code Source(s) Document(s ) No Urine Test not Normal (applies to MEDGEN (St Received performed non-numeric Juan C's . results) [facility], ) ID Date Data Source [id number] 08/27/2019 12:00:00 AM EST [facility] ([facility], ) Name Value Range Interpretation Description Data Sup porting Code Source(s) Document(s ) Vitamin D, 42.8 Normal (applies to [facility]GEN (St 25-Hydroxy ng/mL non-numeric Juan C's results) [facility], ) ID Date Data Source [id number] 08/27/2019 12:00:00 AM EST [facility] ([facility], ) Name Value Range Interpretation Description Data Sup porting Code Source(s) Document(s ) Hemoglobin 6.2 % Above high normal [facility] (St A1c/Hemoglobin. Juan C's total in Blood [facility], ) ID Date Data Source [id number] 08/27/2019 12:00:00 AM EST [facility] ([facility], ) Name Value Range Interpretation Description Data Sup porting Code Source(s) Document(s ) Vitamin B12 385 pg/mL Normal (applies to MEDGEN (S t non-numeric Juan C's results) Medical, ) Folate 10.5 Normal (applies to [facility]GEN (St (Folic ng/mL non-numeric Juan C's Acid), Serum results) [facility], ) ID Date Data Source [id number] 08/27/2019 12:00:00 AM EST [facility] ([facility], ) Name Value Range Interpretation Description Data Sup porting Code Source(s) Document(s ) Cholesterol 80 mg/dL Below low normal [facility] (St [Mass/volume] in Juan C's Serum or Plasma [facility], ) Triglyceride 200 Above high normal MEDGEN (S t [Mass/volume] in mg/dL Juan C's Serum or Plasma [facility], ) HDL Cholesterol 25 mg/dL Below low normal [facility], ) VLDL Cholesterol 40 mg/dL Normal (applies MEDGEN (St Nils to non-numeric Juan C's results) Medical, ) LDL Cholesterol 15 mg/dL Normal (applies MEDGEN ( St Calc to non-numeric Juan C's results) [facility], ) ID Date Data Source [id number] 08/27/2019 12:00:00 AM EST [facility] ([facility]) Name Value Range Interpretation Description Data Sup porting Code Source(s) Document(s ) Specific gravity Test not Normal (applies MEDGEN (St of Pericardial performe to non-numeric Juan C's fluid by d. results) Medical, ) Refractometry pH of Lower Test not Normal (applies MEDGEN (St respiratory performe to non-numeric Juan C's specimen d. results) [facility], ) Protein Test not Normal (applies MEDGEN (St [Mass/volume] in performe to non-numeric Juan C's Lower d. results) Medical, ) respiratory specimen Glucose Test not Normal (applies [facility]GEN (St [Mass/volume] in performe to non-numeric Juan C's Urine collected d. results) [facility], ) for unspecified duration Ketones Test not Normal (applies MEDGEN (St [Presence] in performe to non-numeric Juan C's Blood by Tablet d. results) Medical, ) ID Date Data Source [id number] 08/27/2019 12:00:00 AM EST [facility] ([facility], ) Name Value Range Interpretation Description Data Sup porting Code Source(s) Document(s ) Glucose 87 mg/dL Normal (applies MEDGEN (St [Mass/volume] in to non-numeric Juan C's Urine collected for results) [facility], [facility] duration Urea nitrogen 36 mg/dL Above high MEDGEN (St [Mass/volume] in normal Juan C's Serum or Plasma [facility], ) Creatinine 2.81 Above high MEDGEN (St [Interpretation] in mg/dL normal Juan C's Urine [facility], ) eGFR If NonAfricn 21 Below low normal MEDGE N (St Am mL/min/1 Juan C's .73 [facility], ) eGFR If Africn Am 24 Below low normal MEDGE N (St mL/min/1 Juan C's .73 [facility], ) BUN/Creatinine 13 Normal (applies MEDGEN (S [...] Serum or Plasma ID Date Data Source [id number] 08/27/2019 12:00:00 AM EST [facility] ([facility], ) Name Value Range Interpretation Description Data Sup porting Code Source(s) Document(s ) Leukocytes 11.8 Above high normal [facility]GEN (St [#/volume] in x10E3/uL Juan C's Blood by Medical, ) Automated count Erythrocytes 3.28 Below low normal [facility] (St [#/volume] in x10E6/uL Juan C's Blood by [facility], ) Automated count Hemoglobin 10.8 Below low normal [facility] (St [Mass/volume] in g/dL Juan C's Blood [facility], ) Hematocrit 31.7 % Below low normal [facility]GEN (St [Volume Juan C's Fraction] of [facility], ) Blood by Automated count MCV 97 fL Normal (applies MEDGEN (St to non-numeric Juan C's results) [facility], ) MCH 32.9 pg Normal (applies MEDGEN (St to non-numeric Juan C's results) [facility], ) MCHC 34.1 Normal (applies MEDGEN (St g/dL to non-numeric Juan C's results) [facility], ) RDW 17.5 % Above high normal [facility] ([facility], ) Platelets 237 Normal (applies MEDGEN (St [#/area] in x10E3/uL to non-numeric Juan C's Blood by results) Medical, ) Microscopy high power field Neutrophils [#] 53 % Normal (applies MEDGEN ( St in Body fluid by to non-numeric Juan C's Manual count results) [facility], ) Lymphs 20 % Normal (applies MEDGEN (St to non-numeric Juan C's results) Medical, ) Monocytes 13 % Normal (applies MEDGEN (St [#/volume] in to non-numeric Juan C's Cord blood results) [facility], ) Eos 12 % Normal (applies MEDGEN (St to non-numeric Juan C's results) [facility], ) Basos 1 % Normal (applies MEDGEN (St to non-numeric Juan C's results) [facility], ) Neutrophils 6.2 Normal (applies MEDGEN (St (Absolute) x10E3/uL to non-numeric Juan C's results) [facility], ) Lymphs 2.4 Normal (applies MEDGEN (St (Absolute) x10E3/uL to non-numeric Juan C's results) [facility], ) Monocytes(Absolu 1.5 Above high normal MEDGE N (St te) x10E3/uL Juan C's [facility], ) Eos (Absolute) 1.5 Above high normal [facility]GEN (St x10E3/uL Juan C's [facility], ) Baso (Absolute) 0.1 Normal (applies MEDGEN ( St x10E3/uL to non-numeric Juan C's results) [facility], ) Immature 1 % Normal (applies MEDGEN (St Granulocytes to non-numeric Juan C's results) [facility], ) Immature Grans 0.2 Above high normal MEDGEN (St (Abs) x10E3/uL [facility] [facility], ) Hematology Note: Normal (applies MEDGEN (St Comments: to non-numeric Juan C's results) [facility], ) ID Date Data Source [id number] 08/27/2019 12:00:00 AM EST MEDGEN ([facility], ) Name Value Range Interpretation Code Description Data Lisa rce(s) Supporting Document(s ) TSH 3.560 Normal (applies to MEDGEN (St uIU/mL non-numeric Juan C's results) [facility], ) T4,Free(D 1.22 ng/dL Normal (applies to MEDGEN (St irect) non-numeric Juan C's results) [facility], ) ID Date Data Source [id number] 08/27/2019 12:00:00 AM EST MEDGEN ([facility], ) Name Value Range Interpretation Description Data Sup porting Code Source(s) Document(s ) No Urine Test not Normal (applies to MEDGEN (St Received performed non-numeric Juan C's . results) [facility], ) ID Date Data Source [id number] 08/27/2019 12:00:00 AM EST MEDGEN ([facility], ) Name Value Range Interpretation Description Data Sup porting Code Source(s) Document(s ) Vitamin D, 42.8 Normal (applies to MEDGEN (St 25-Hydroxy ng/mL non-numeric Juan C's results) [facility], ) Vitamin D, 30.6 Normal (applies to MEDGEN (St 25-Hydroxy ng/mL non-numeric Juan C's results) [facility], ) Vitamin D, 36.2 Normal (applies to MEDGEN (St 25-Hydroxy ng/mL non-numeric Juan C's results) [facility], ) ID Date Data Source [id number] 08/27/2019 12:00:00 AM EST MED[facility] ([facility], ) Name Value Range Interpretation Description Data Sup porting Code Source(s) Document(s ) Hemoglobin 6.2 % Above high normal MEDGEN (St A1c/Hemoglobin. Juan C's total in Blood [facility], ) ID Date Data Source [id number] 08/27/2019 12:00:00 AM EST MEDGEN ([facility], ) Name Value Range Interpretation Description Data Sup porting Code Source(s) Document(s ) Vitamin B12 385 pg/mL Normal (applies to MEDGEN (S t non-numeric Juan C's results) [facility], ) Folate 10.5 Normal (applies to MEDGEN (St (Folic ng/mL non-numeric Juan C's Acid), Serum results) [facility], ) ID Date Data Source [id number] 08/27/2019 12:00:00 AM EST MEDGEN ([facility], ) Name Value Range Interpretation Description Data Sup porting Code Source(s) Document(s ) Cholesterol 80 mg/dL Below low normal MEDGEN (St [Mass/volume] in Juan C's Serum or Plasma [facility], ) Triglyceride 200 Above high normal MEDGEN (S t [Mass/volume] in mg/dL Juan C's Serum or Plasma [facility], ) HDL Cholesterol 25 mg/dL Below low normal MED[facility] ([facility], ) VLDL Cholesterol 40 mg/dL Normal (applies MEDGEN (St Nils to non-numeric Juan C's results) [facility], ) LDL Cholesterol 15 mg/dL Normal (applies MEDGEN ( St Calc to non-numeric Juan C's results) [facility], ) ID Date Data Source [id number] 08/27/2019 12:00:00 AM EST MEDGEN ([facility], ) Name Value Range Interpretation Description [...] results) Medical, ) ID Date Data Source [id number] 08/27/2019 12:00:00 AM EST MEDGEN ([facility], ) Name Value Range Interpretation Description Data Sup porting Code Source(s) Document(s ) Glucose 88 mg/dL Normal (applies MEDGEN (St [Mass/volume] in to non-numeric Juan C's Urine collected for results) [facility], unspecified PC) duration Urea nitrogen 61 mg/dL Above high MEDGEN (St [Mass/volume] in normal Juan C's Serum or Plasma Medical, ) Creatinine 5.97 Above high MEDGEN (St [Interpretation] in mg/dL normal Juan C's Urine Medical, ) eGFR If NonAfricn 9 Below low normal MEDGE N (St Am mL/min/1 Juan C's .73 [facility], ) eGFR If Africn Am 10 Below low normal MEDGE N (St mL/min/1 Juan C's .73 [facility], ) BUN/Creatinine 10 Normal (applies MEDGEN (S [...] in normal Juan C's Serum or Plasma [facility], ) Creatinine 2.81 Above high MEDGEN (St [Interpretation] in mg/dL normal Juan C's Urine [facility], ) eGFR If NonAfricn 21 Below low normal MEDGE N (St Am mL/min/1 Juan C's .73 [facility], ) eGFR If Africn Am 24 Below low normal MEDGE N (St mL/min/1 Juan C's .73 [facility], ) BUN/Creatinine 13 Normal (applies MEDGEN (S [...] non-numeric Juan C's Serum or Plasma results) [facility], ) Calcium 9.8 Normal (applies MEDGEN (St [Moles/volume] in mg/dL to non-numeric Juan C's Urine collected for results) [facility], unspecified ) duration Protein 9.0 g/dL Above high MEDGEN (St [Mass/volume] in normal Juan C's Serum or Plasma [facility], ) Microalbumin 4.2 g/dL Normal (applies MEDGEN (St [Mass/time] in to non-numeric Juan C's Urine collected for results) [facility], unspecified ) duration Globulin, Total 4.8 g/dL Above high MEDGEN (St normal [facility], ) A/G Ratio 0.9 Below low normal MEDGEN ([facility], ) Bilirubin.total 0.3 Normal (applies MEDGEN ( St [Mass/volume] in mg/dL to non-numeric Juan C's Serum or Plasma results) [facility], ) Alkaline 53 IU/L Normal (applies MEDGEN [...] Serum or Plasma ID Date Data Source [id number] 08/27/2019 12:00:00 AM EST MEDGEN (St [facility], ) Name Value Range Interpretation Description Data Sup porting Code Source(s) Document(s ) Leukocytes 11.7 Above high normal MEDGEN (St [#/volume] in x10E3/uL Juan C's Blood by [facility], ) Automated count Erythrocytes 2.47 Below lower panic MEDGEN (S t [#/volume] in x10E6/uL limits Juan C's Blood by [facility], ) Automated count Hemoglobin 8.2 g/dL Below low normal MEDGEN (St [Mass/volume] in Juan C's Blood [facility], ) Hematocrit 23.3 % Below low normal MEDGEN (St [Volume Juan C's Fraction] of [facility], ) Blood by Automated count MCH 33.2 pg Above high normal MED[facility] ([facility], ) MCV 94 fL Normal (applies MEDGEN (St to non-numeric Juan C's results) [facility]) MCHC 35.2 Normal (applies MEDGEN (St g/dL to non-numeric Juan C's results) [facility]) RDW 19.0 % Above high normal MEDGEN ([facility], ) Platelets 198 Normal (applies MEDGEN (St [#/area] in x10E3/uL to non-numeric Juan C's Blood by results) [facility]) Microscopy high power field Neutrophils [#] 54 % Normal (applies MEDGEN ( St in Body fluid by to non-numeric Juan C's Manual count results) [facility], ) Lymphs 13 % Normal (applies MEDGEN (St to non-numeric Juan C's results) [facility]) Monocytes 16 % Normal (applies MEDGEN (St [#/volume] in to non-numeric Juan C's Cord blood results) [facility]) Eos 11 % Normal (applies MEDGEN (St to non-numeric Juan C's results) [facility]) Basos 1 % Normal (applies MEDGEN (St to non-numeric Juan C's results) [facility]) Neutrophils 6.4 Normal (applies MEDGEN (St (Absolute) x10E3/uL to non-numeric Juan C's results) [facility], ) Lymphs 1.5 Normal (applies MEDGEN (St (Absolute) x10E3/uL to non-numeric Juan C's results) [facility]) Monocytes(Absolu 1.9 Above high normal MEDGE N (St te) x10E3/uL Juan C's [facility]) Eos (Absolute) 1.3 Above high normal MEDGEN (St x10E3/uL Juan C's [facility], ) Baso (Absolute) 0.1 Normal (applies MEDGEN ( St x10E3/uL to non-numeric Juan C's results) [facility], ) Immature 5 % Normal (applies MEDGEN (St Granulocytes to non-numeric Juan C's results) [facility]) Immature Grans 0.6 Above high normal MEDGEN (St (Abs) x10E3/uL Juan C's [facility], ) NRBC 4 % Above high normal [facility] ([facility], ) Leukocytes 11.8 Above high normal MEDGEN (St [#/volume] in x10E3/uL Juan C's Blood by [facility], ) Automated count Erythrocytes 3.28 Below low normal MEDGEN (St [#/volume] in x10E6/uL Juan C's Blood by [facility], ) Automated count Hemoglobin 10.8 Below low normal MEDGEN (St [Mass/volume] in g/dL Juan C's Blood [facility], ) MCV 97 fL Normal (applies MEDGEN (St to non-numeric Juan C's results) [facility], ) Hematocrit 31.7 % Below low normal MEDGEN (St [Volume Juan C's Fraction] of [facility], ) Blood by Automated count MCH 32.9 pg Normal (applies MEDGEN (St to non-numeric Juan C's results) [facility], ) RDW 17.5 % Above high normal [facility] ([facility], ) MCHC 34.1 Normal (applies MEDGEN (St g/dL to non-numeric Juan C's results) [facility], ) Platelets 237 Normal (applies MEDGEN (St [#/area] in x10E3/uL to non-numeric Juan C's Blood by results) [facility], ) Microscopy high power field Neutrophils [#] 53 % Normal (applies MEDGEN ( St in Body fluid by to non-numeric Juan C's Manual count results) [facility], ) Lymphs 20 % Normal (applies MEDGEN (St to non-numeric Juan C's results) [facility], ) Eos 12 % Normal (applies MEDGEN (St to non-numeric Juan C's results) [facility], ) Monocytes 13 % Normal (applies MEDGEN (St [#/volume] in to non-numeric Juan C's Cord blood results) [facility], ) Basos 1 % Normal (applies MEDGEN (St to non-numeric Juan C's results) [facility], ) Neutrophils 6.2 Normal (applies MEDGEN (St (Absolute) x10E3/uL to non-numeric Juan C's results) [facility], ) Lymphs 2.4 Normal (applies MEDGEN (St (Absolute) x10E3/uL to non-numeric Juan C's results) [facility], ) Monocytes(Absolu 1.5 Above high normal MEDGE N (St te) x10E3/uL Juan C's [facility], ) Baso (Absolute) 0.1 Normal (applies MEDGEN ( St x10E3/uL to non-numeric Juan C's results) [facility], ) Eos (Absolute) 1.5 Above high normal MEDGEN (St x10E3/uL [facility], ) Immature 1 % Normal (applies MEDGEN (St Granulocytes to non-numeric Juan C's results) [facility], ) Hematology Note: Normal (applies MEDGEN (St Comments: to non-numeric Juan C's results) [facility], ) Immature Grans 0.2 Above high normal MEDGEN (St (Abs) x10E3/uL [facility], ) Leukocytes 9.5 Normal (applies MEDGEN (St [#/volume] in x10E3/uL to non-numeric Juan C's Blood by results) [facility], ) Automated count Erythrocytes 3.28 Below low normal MEDGEN (St [#/volume] in x10E6/uL Juan C's Blood by [facility], ) Automated count Hemoglobin 10.9 Below low normal MEDGEN (St [Mass/volume] in g/dL Juan C's Blood [facility], ) Hematocrit 32.1 % Below low normal MEDGEN (St [Volume Juan C's Fraction] of [facility], ) Blood by Automated count MCH 33.2 pg Above high normal MEDGEN ([facility], ) MCV 98 fL Above high normal MEDGEN ([facility], ) MCHC 34.0 Normal (applies MEDGEN (St g/dL to non-numeric Juan C's results) [facility], ) RDW 17.3 % Above high normal MEDGEN ([facility], ) Platelets 240 Normal (applies MEDGEN (St [#/area] in x10E3/uL to non-numeric Juan C's Blood by results) [facility], ) Microscopy high power field Neutrophils [#] 53 % Normal (applies MEDGEN ( St in Body fluid by to non-numeric Juan C's Manual count results) [facility], ) Lymphs 19 % Normal (applies MEDGEN (St to non-numeric Juan C's results) [facility], ) Eos 11 % Normal (applies MEDGEN (St to non-numeric Juan C's results) [facility], ) Monocytes 15 % Normal (applies MEDGEN (St [#/volume] in to non-numeric Juan C's Cord blood results) [facility]) Basos 0 % Normal (applies MEDGEN (St to non-numeric Juan C's results) [facility]) Neutrophils 5.1 Normal (applies MEDGEN (St (Absolute) x10E3/uL to non-numeric Juan C's results) [facility]) Lymphs 1.8 Normal (applies MEDGEN (St (Absolute) x10E3/uL to non-numeric Juan C's results) [facility]) Monocytes(Absolu 1.5 Above high normal MEDGE N (St te) x10E3/uL [facility]) Eos (Absolute) 1.0 Above high normal MEDGEN (St x10E3/uL [facility]) Baso (Absolute) 0.0 Normal (applies MEDGEN ( St x10E3/uL to non-numeric Juan C's results) [facility]) Immature Grans 0.2 Above high normal MEDGEN (St (Abs) x10E3/uL [facility]) Immature 2 % Normal (applies MEDGEN (St Granulocytes to non-numeric Juan C's results) [facility]) Hematology Note: Normal (applies MEDGEN (St Comments: to non-numeric Juan C's results) [facility]) ID Date Data Source [id number] 08/27/2019 12:00:00 AM EST MEDGEN ([employer] [facility]) Name Value Range Interpretation Code Description Data Lisa rce(s) Supporting Document(s ) TSH 3.560 Normal (applies to MEDGEN (St uIU/mL non-numeric Juan C's results) [facility]) T4,Free(D 1.22 ng/dL Normal (applies to MEDGEN (St irect) non-numeric Juan C's results) [facility]) ID Date Data Source [id number] 08/27/2019 12:00:00 AM EST MEDGEN ([facility] [employer] [facility]) Name Value Range Interpretation Description Data Sup porting Code Source(s) Document(s ) No Urine Test not Normal (applies to MEDGEN (St Received performed non-numeric Juan C's . results) [facility]) ID Date Data Source [id number] 08/27/2019 12:00:00 AM EST [facility] ([facility], ) Name Value Range Interpretation Description Data Sup porting Code Source(s) Document(s ) Vitamin D, 42.8 Normal (applies to MEDGEN (St 25-Hydroxy ng/mL non-numeric Juan C's results) Medical, ) Vitamin D, 36.2 Normal (applies to MEDGEN (St 25-Hydroxy ng/mL non-numeric Juan C's results) [facility], ) ID Date Data Source [id number] 08/27/2019 12:00:00 AM EST MEDGEN ([facility], ) Name Value Range Interpretation Description Data Sup porting Code Source(s) Document(s ) Hemoglobin 6.2 % Above high normal MEDGEN (St A1c/Hemoglobin. Juan C's total in Blood [facility], ) ID Date Data Source [id number] 08/27/2019 12:00:00 AM EST MEDGEN ([facility], ) Name Value Range Interpretation Description Data Sup porting Code Source(s) Document(s ) Folate 10.5 Normal (applies to MEDGEN (St (Folic ng/mL non-numeric Juan C's Acid), Serum results) Medical, ) Vitamin B12 385 pg/mL Normal (applies to MEDGEN (S t non-numeric Juan C's results) Medical, ) ID Date Data Source [id number] 08/27/2019 12:00:00 AM EST [facility] ([facility], ) Name Value Range Interpretation Description Data Sup porting Code Source(s) Document(s ) Cholesterol 80 mg/dL Below low normal MEDGEN (St [Mass/volume] in Juan C's Serum or Plasma Medical, ) Triglyceride 200 Above high normal MEDGEN (S t [Mass/volume] in mg/dL Juan C's Serum or Plasma [facility], ) VLDL Cholesterol 40 mg/dL Normal (applies MEDGEN (St Nils to non-numeric Juan C's results) Medical, ) HDL Cholesterol 25 mg/dL Below low normal [facility] ([facility], ) LDL Cholesterol 15 mg/dL Normal (applies MEDGEN ( St Calc to non-numeric Juan C's results) [facility], ) ID Date Data Source [id number] 08/27/2019 12:00:00 AM EST [facility] ([facility], ) Name Value Range Interpretation Description [...] for unspecified duration ID Date Data Source [id number] 08/27/2019 12:00:00 AM EST [facility] ([facility], ) Name Value Range Interpretation Description Data Sup porting Code Source(s) Document(s ) Urea nitrogen 36 mg/dL Above high MEDGEN (St [Mass/volume] in normal Juan C's Serum or Plasma Medical, ) Glucose 87 mg/dL Normal (applies MEDGEN (St [Mass/volume] in to non-numeric Juan C's Urine collected for results) [facility], unspecified ) duration Creatinine 2.81 Above high [...] non-numeric Juan C's Serum or Plasma results) [facility], ) Protein 9.0 g/dL Above high MEDGEN (St [Mass/volume] in normal Juan C's Serum or Plasma [facility], ) Calcium 9.8 Normal (applies MEDGEN (St [Moles/volume] in mg/dL to non-numeric Juan C's Urine collected for results) [facility], unspecified ) duration Microalbumin 4.2 g/dL Normal (applies MEDGEN (St [Mass/time] in to non-numeric Juan C's Urine collected for results) [facility], unspecified ) duration Globulin, Total 4.8 g/dL Above high MEDGEN (St normal [facility], ) A/G Ratio 0.9 Below low normal MEDGEN ([facility], ) Bilirubin.total 0.3 Normal (applies MEDGEN ( St [Mass/volume] in mg/dL to non-numeric Juan C's Serum or Plasma results) [facility], ) Aspartate 22 IU/L Normal (applies MEDGEN [...] Serum or Plasma ID Date Data Source [id number] 08/27/2019 12:00:00 AM EST MEDGEN ([facility], ) Name Value Range Interpretation Description Data Sup porting Code Source(s) Document(s ) Leukocytes 11.8 Above high normal MEDGEN (St [#/volume] in x10E3/uL Juan C's Blood by [facility], ) Automated count Erythrocytes 3.28 Below low normal MEDGEN (St [#/volume] in x10E6/uL Juan C's Blood by [facility], ) Automated count Hematocrit 31.7 % Below low normal MEDGEN (St [Volume Juan C's Fraction] of [facility], ) Blood by Automated count Hemoglobin 10.8 Below low normal MEDGEN (St [Mass/volume] in g/dL Juan C's Blood [facility], ) MCV 97 fL Normal (applies MEDGEN (St to non-numeric Juan C's results) [facility], ) MCH 32.9 pg Normal (applies MEDGEN (St to non-numeric Juan C's results) [facility], ) RDW 17.5 % Above high normal [facility] ([facility], ) MCHC 34.1 Normal (applies MEDGEN (St g/dL to non-numeric Juan C's results) [facility], ) Neutrophils [#] 53 % Normal (applies MEDGEN ( St in Body fluid by to non-numeric Juan C's Manual count results) [facility], ) Platelets 237 Normal (applies MEDGEN (St [#/area] in x10E3/uL to non-numeric Juan C's Blood by results) [facility], ) Microscopy high power field Lymphs 20 % Normal (applies MEDGEN (St to non-numeric Juan C's results) [facility], ) Eos 12 % Normal (applies MEDGEN (St to non-numeric Juan C's results) [facility], ) Basos 1 % Normal (applies MEDGEN (St to non-numeric Juan C's results) [facility], ) Monocytes 13 % Normal (applies MEDGEN (St [#/volume] in to non-numeric Juan C's Cord blood results) [facility], ) Neutrophils 6.2 Normal (applies MEDGEN (St (Absolute) x10E3/uL to non-numeric Juan C's results) [facility], ) Eos (Absolute) 1.5 Above high normal MEDGEN (St x10E3/uL Juan C's [facility], ) Monocytes(Absolu 1.5 Above high normal MEDGE N (St te) x10E3/uL Juan C's [facility], ) Lymphs 2.4 Normal (applies MEDGEN (St (Absolute) x10E3/uL to non-numeric Juan C's results) [facility], ) Immature 1 % Normal (applies MEDGEN (St Granulocytes to non-numeric Juan C's results) [facility], ) Baso (Absolute) 0.1 Normal (applies MEDGEN ( St x10E3/uL to non-numeric Juan C's results) [facility], ) Immature Grans 0.2 Above high normal MEDGEN (St (Abs) x10E3/uL Juan C's [facility], ) Hematology Note: Normal (applies MEDGEN (St Comments: to non-numeric Juan C's results) [facility], ) Leukocytes 9.5 Normal (applies MEDGEN (St [#/volume] in x10E3/uL to non-numeric Juan C's Blood by results) [facility]) Automated count Erythrocytes 3.28 Below low normal MEDGEN (St [#/volume] in x10E6/uL Juan C's Blood by [facility]) Automated count Hemoglobin 10.9 Below low normal MEDGEN (St [Mass/volume] in g/dL Juan C's Blood [facility]) MCV 98 fL Above high normal [facility] ([facility], ) Hematocrit 32.1 % Below low normal MEDGEN (St [Volume Juan C's Fraction] of [facility]) Blood by Automated count MCHC 34.0 Normal (applies MEDGEN (St g/dL to non-numeric Juan C's results) [facility]) MCH 33.2 pg Above high normal MEDGEN ([facility], ) Platelets 240 Normal (applies MEDGEN (St [#/area] in x10E3/uL to non-numeric Juan C's Blood by results) [facility]) Microscopy high power field RDW 17.3 % Above high normal MEDGEN ([facility], ) Neutrophils [#] 53 % Normal (applies MEDGEN ( St in Body fluid by to non-numeric Juan C's Manual count results) [facility]) Lymphs 19 % Normal (applies MEDGEN (St to non-numeric Juan C's results) [facility]) Monocytes 15 % Normal (applies MEDGEN (St [#/volume] in to non-numeric Juan C's Cord blood results) [facility]) Basos 0 % Normal (applies MEDGEN (St to non-numeric Juan C's results) [facility]) Eos 11 % Normal (applies MEDGEN (St to non-numeric Juan C's results) [facility]) Lymphs 1.8 Normal (applies MEDGEN (St (Absolute) x10E3/uL to non-numeric Juan C's results) [facility]) Neutrophils 5.1 Normal (applies MEDGEN (St (Absolute) x10E3/uL to non-numeric Juan C's results) [facility]) Eos (Absolute) 1.0 Above high normal MEDGEN (St x10E3/uL Juan C's [facility], ) Monocytes(Absolu 1.5 Above high normal MEDGE N (St te) x10E3/uL Juan C's Medical, ) Immature 2 % Normal (applies MEDGEN (St Granulocytes to non-numeric Juan C's results) Medical, ) Baso (Absolute) 0.0 Normal (applies MEDGEN ( St x10E3/uL to non-numeric Juan C's results) Medical, ) Immature Grans 0.2 Above high normal MEDGEN (St (Abs) x10E3/uL Juan C's [facility] [facility], ) Hematology Note: Normal (applies MED[facility] (St Comments: to non-numeric Juan C's results) Medical, ) ID Date Data Source [id number] 08/27/2019 12:00:00 AM EST [facility] ([facility], ) Name Value Range Interpretation Code Description Data Lisa rce(s) Supporting Document(s ) TSH 3.560 Normal (applies to [facility] (St uIU/mL non-numeric Juan C's results) Medical, ) T4,Free(D 1.22 ng/dL Normal (applies to [facility] (St irect) non-numeric Juan C's results) Medical, ) ID Date Data Source [id number] 08/27/2019 12:00:00 AM EST [facility] ([facility], ) Name Value Range Interpretation Description Data Sup porting Code Source(s) Document(s ) No Urine Test not Normal (applies to MED[facility] (St Received performed non-numeric Juan C's . results) Medical, ) ID Date Data Source [id number] 08/27/2019 12:00:00 AM EST [facility] ([facility], ) Name Value Range Interpretation Description Data Sup porting Code Source(s) Document(s ) Vitamin D, 42.8 Normal (applies to [facility] (St 25-Hydroxy ng/mL non-numeric Juan C's results) Medical, ) Vitamin D, 36.2 Normal (applies to [facility]GEN (St 25-Hydroxy ng/mL non-numeric Juan C's results) Medical, ) ID Date Data Source [id number] 08/27/2019 12:00:00 AM EST [facility] ([facility], ) Name Value Range Interpretation Description Data Sup porting Code Source(s) Document(s ) Hemoglobin 6.2 % Above high normal MEDGEN (St A1c/Hemoglobin. Juan C's total in Blood [facility], ) ID Date Data Source [id number] 08/27/2019 12:00:00 AM EST [facility] ([facility], ) Name Value Range Interpretation Description Data Sup porting Code Source(s) Document(s ) Vitamin B12 385 pg/mL Normal (applies to MEDGEN (S t non-numeric Juan C's results) Medical, ) Folate 10.5 Normal (applies to MEDGEN (St (Folic ng/mL non-numeric Juan C's Acid), Serum results) [facility], ) ID Date Data Source [id number] 08/27/2019 12:00:00 AM EST MEDGEN ([facility], ) Name Value Range Interpretation Description Data Sup porting Code Source(s) Document(s ) Cholesterol 80 mg/dL Below low normal MEDGEN (St [Mass/volume] in Juan C's Serum or Plasma [facility], ) Triglyceride 200 Above high normal MEDGEN (S t [Mass/volume] in mg/dL [facility] Serum or Plasma [facility], ) HDL Cholesterol 25 mg/dL Below low normal MEDGEN ([facility], ) LDL Cholesterol 15 mg/dL Normal (applies MEDGEN ( St Calc to non-numeric Juan C's results) [facility], ) VLDL Cholesterol 40 mg/dL Normal (applies MEDGEN (St Nils to non-numeric Juan C's results) [facility], ) ID Date Data Source [id number] 08/27/2019 12:00:00 AM EST MED[facility] ([facility], ) Name Value Range Interpretation Description Data [...] to non-numeric Juan C's Lower d. results) [facility], ) respiratory specimen Glucose Test not Normal (applies MEDGEN (St [Mass/volume] in performe to non-numeric Juan C's Urine collected d. results) Medical, ) for unspecified duration Ketones Test not Normal (applies MEDGEN (St [Presence] in performe to non-numeric Juan C's Blood by Tablet d. results) Medical, ) ID Date Data Source [id number] 08/27/2019 12:00:00 AM EST [facility] ([facility], ) Name Value Range Interpretation Description Data Sup porting Code Source(s) Document(s ) Glucose 87 mg/dL Normal (applies MEDGEN (St [Mass/volume] in to non-numeric Juan C's Urine collected for results) Medical, unspecified ) duration Creatinine 2.81 Above high MEDGEN (St [Interpretation] in mg/dL normal Juan C's Urine [facility], ) Urea nitrogen 36 mg/dL Above high MEDGEN (St [Mass/volume] in normal Juan C's Serum or Plasma [facility], ) eGFR If Africn Am 24 Below low normal MEDGE N (St mL/min/[address], ) eGFR If NonAfricn 21 Below low normal MEDGE N (St Am mL/min/[address], ) BUN/Creatinine 13 Normal (applies MEDGEN (S t Ratio to non-numeric Juan C's results) Medical, ) Sodium 135 Normal (applies MEDGEN (St [Moles/volume] in mmol/L to non-numeric Juan C's Serum or Plasma results) [facility], ) Potassium 4.1 Normal (applies MEDGEN (St [Mass/volume] in mmol/L to non-numeric Juan C's Blood results) [facility], ) Carbon dioxide, 20 Normal (applies MEDGEN ( St total mmol/L to non-numeric Juan C's [Moles/volume] in results) Medical, Serum or Plasma PC) Chloride 102 Normal (applies MEDGEN (St [Moles/volume] in mmol/L to non-numeric Juan C's Serum or Plasma results) [facility], ) Calcium 9.8 Normal (applies MEDGEN (St [Moles/volume] in mg/dL to non-numeric Juan C's Urine collected for results) Medical, unspecified ) duration Protein 9.0 g/dL Above high MEDGEN (St [Mass/volume] in normal Juan C's Serum or Plasma [facility], ) Globulin, Total 4.8 g/dL Above high MEDGEN (St normal Juan C's [facility], ) Microalbumin 4.2 g/dL Normal (applies MEDGEN (St [Mass/time] in to non-numeric Juan C's Urine collected for results) Medical, unspecified ) duration A/G Ratio 0.9 Below low normal [facility] ([facility], ) Bilirubin.total 0.3 Normal (applies MEDGEN ( St [Mass/volume] in mg/dL to non-numeric Juan C's Serum or Plasma results) [facility], ) Alkaline 53 IU/L Normal (applies MEDGEN [...] Serum or Plasma ID Date Data Source [id number] 08/27/2019 12:00:00 AM EST [facility] ([facility], ) Name Value Range Interpretation Description Data Sup porting Code Source(s) Document(s ) Erythrocytes 3.28 Below low normal MEDGEN (St [#/volume] in x10E6/uL Juan C's Blood by [facility], ) Automated count Leukocytes 11.8 Above high normal MEDGEN (St [#/volume] in x10E3/uL Juan C's Blood by [facility], ) Automated count Hemoglobin 10.8 Below low normal [facility]GEN (St [Mass/volume] in g/dL Juan C's Blood [facility], ) Hematocrit 31.7 % Below low normal MEDGEN (St [Volume Juan C's Fraction] of [facility], ) Blood by Automated count MCV 97 fL Normal (applies MEDGEN (St to non-numeric Juan C's results) [facility], ) MCH 32.9 pg Normal (applies MEDGEN (St to non-numeric Juan C's results) [facility], ) MCHC 34.1 Normal (applies MEDGEN (St g/dL to non-numeric Juan C's results) [facility], ) Platelets 237 Normal (applies MEDGEN (St [#/area] in x10E3/uL to non-numeric Juan C's Blood by results) [facility], ) Microscopy high power field RDW 17.5 % Above high normal MEDGEN ([facility], ) Lymphs 20 % Normal (applies MEDGEN (St to non-numeric Juan C's results) [facility], ) Neutrophils [#] 53 % Normal (applies MEDGEN ( St in Body fluid by to non-numeric Juan C's Manual count results) [facility], ) Monocytes 13 % Normal (applies MEDGEN (St [#/volume] in to non-numeric Juan C's Cord blood results) [facility], ) Eos 12 % Normal (applies MEDGEN (St to non-numeric Juan C's results) [facility], ) Basos 1 % Normal (applies MEDGEN (St to non-numeric Juan C's results) [facility], ) Neutrophils 6.2 Normal (applies MEDGEN (St (Absolute) x10E3/uL to non-numeric Juan C's results) [facility], ) Lymphs 2.4 Normal (applies MEDGEN (St (Absolute) x10E3/uL to non-numeric Juan C's results) [facility]) Monocytes(Absolu 1.5 Above high normal MEDGE N (St te) x10E3/uL Juan C's [facility], ) Eos (Absolute) 1.5 Above high normal [facility] (St x10E3/uL Juan C's [facility], ) Immature 1 % Normal (applies MEDGEN (St Granulocytes to non-numeric Juan C's results) [facility]) Baso (Absolute) 0.1 Normal (applies MEDGEN ( St x10E3/uL to non-numeric Juan C's results) [facility]) Immature Grans 0.2 Above high normal MEDGEN (St (Abs) x10E3/uL Juan C's [facility], ) Hematology Note: Normal (applies MEDGEN (St Comments: to non-numeric Juan C's results) [facility], ) Leukocytes 9.5 Normal (applies MEDGEN (St [#/volume] in x10E3/uL to non-numeric Juan C's Blood by results) [facility], ) Automated count Erythrocytes 3.28 Below low normal [facility] (St [#/volume] in x10E6/uL Juan C's Blood by [facility], ) Automated count Hemoglobin 10.9 Below low normal [facility] (St [Mass/volume] in g/dL Juan C's Blood [facility], ) Hematocrit 32.1 % Below low normal [facility] (St [Volume Juan C's Fraction] of [facility], ) Blood by Automated count MCV 98 fL Above high normal [facility] ([facility], ) MCH 33.2 pg Above high normal [facility] ([facility], ) MCHC 34.0 Normal (applies MEDGEN (St g/dL to non-numeric Juan C's results) [facility]) RDW 17.3 % Above high normal [facility] ([facility], ) Platelets 240 Normal (applies MEDGEN (St [#/area] in x10E3/uL to non-numeric Juan C's Blood by results) [facility], ) Microscopy high power field Lymphs 19 % Normal (applies MEDGEN (St to non-numeric Juan C's results) [facility], ) Neutrophils [#] 53 % Normal (applies MEDGEN ( St in Body fluid by to non-numeric Juan C's Manual count results) [facility], ) Monocytes 15 % Normal (applies MEDGEN (St [#/volume] in to non-numeric Juan C's Cord blood results) [facility], ) Eos 11 % Normal (applies MEDGEN (St to non-numeric Juan C's results) [facility], ) Basos 0 % Normal (applies MEDGEN (St to non-numeric Juan C's results) [facility], ) Lymphs 1.8 Normal (applies MEDGEN (St (Absolute) x10E3/uL to non-numeric Juan C's results) [facility]) Neutrophils 5.1 Normal (applies MEDGEN (St (Absolute) x10E3/uL to non-numeric Juan C's results) [facility]) Eos (Absolute) 1.0 Above high normal [facility]GEN (St x10E3/uL Juan C's [facility], ) Monocytes(Absolu 1.5 Above high normal MEDGE N (St te) x10E3/uL [facility]'s [facility]) Baso (Absolute) 0.0 Normal (applies MEDGEN ( St x10E3/uL to non-numeric Juan C's results) [facility], ) Immature 2 % Normal (applies MEDGEN (St Granulocytes to non-numeric Juan C's results) [facility]) Immature Grans 0.2 Above high normal [facility] (St (Abs) x10E3/uL [facility], ) Hematology Note: Normal (applies MEDGEN (St Comments: to non-numeric Juan C's results) [facility], ) ID Date Data Source [id number] 08/27/2019 12:00:00 AM EST [facility] ([facility], ) Name Value Range Interpretation Code Description Data Lisa rce(s) Supporting Document(s ) T4,Free(D 1.22 ng/dL Normal (applies to MEDGEN (St irect) non-numeric Juan C's results) Medical, ) TSH 3.560 Normal (applies to MEDGEN (St uIU/mL non-numeric Juan C's results) [facility], ) ID Date Data Source [id number] 08/27/2019 12:00:00 AM EST [facility] ([facility]) Name Value Range Interpretation Description Data Sup porting Code Source(s) Document(s ) Cholesterol 80 mg/dL Below low normal MEDGEN (St [Mass/volume] in Juan C's Serum or Plasma [facility]) Triglyceride 200 Above high normal MEDGEN (S t [Mass/volume] in mg/dL Juan C's Serum or Plasma [facility]) HDL Cholesterol 25 mg/dL Below low normal [facility], ) VLDL Cholesterol 40 mg/dL Normal (applies MEDGEN (St Nils to non-numeric Juan C's results) [facility], ) LDL Cholesterol 15 mg/dL Normal (applies MEDGEN ( St Calc to non-numeric Juan C's results) [facility], ) ID Date Data Source [id number] 08/27/2019 12:00:00 AM EST MEDGEN ([facility]) Name Value Range Interpretation Description [...] results) Medical, ) ID Date Data Source [id number] 08/27/2019 12:00:00 AM EST [facility] ([facility], ) Name Value Range Interpretation Description Data Sup porting Code Source(s) Document(s ) Glucose 87 mg/dL Normal (applies MEDGEN (St [Mass/volume] in to non-numeric Juan C's Urine collected for results) Medical, unspecified ) duration Urea nitrogen 36 mg/dL Above high MEDGEN (St [Mass/volume] in normal Juan C's Serum or Plasma [facility], ) Creatinine 2.81 Above high MEDGEN (St [Interpretation] in mg/dL normal Juan C's Urine [facility], ) eGFR If NonAfricn 21 Below low normal MEDGE N (St Am mL/min/[address], ) eGFR If Africn Am 24 Below low normal MEDGE N (St mL/min/1 [facility], ) BUN/Creatinine 13 Normal (applies MEDGEN (S t Ratio to non-numeric Juan C's results) [facility], ) Sodium 135 Normal (applies MEDGEN (St [Moles/volume] in mmol/L to non-numeric Juan C's Serum or Plasma results) [facility], ) Potassium 4.1 Normal (applies MEDGEN (St [Mass/volume] in mmol/L to non-numeric Juan C's Blood results) [facility], ) Chloride 102 Normal (applies MEDGEN (St [Moles/volume] in mmol/L to non-numeric Juan C's Serum or Plasma results) [facility], ) Carbon dioxide, 20 Normal (applies MEDGEN ( St total mmol/L to non-numeric Juan C's [Moles/volume] in results) Medical, Serum or Plasma [facility]) Calcium 9.8 Normal (applies MEDGEN (St [Moles/volume] in mg/dL to non-numeric Juan C's Urine collected for results) Medical, unspecified [facility]) duration Protein 9.0 g/dL Above high MEDGEN (St [Mass/volume] in normal Juan C's Serum or Plasma [facility], ) Microalbumin 4.2 g/dL Normal (applies MEDGEN (St [Mass/time] in to non-numeric Juan C's Urine collected for results) Medical, unspecified PC) duration Globulin, Total 4.8 g/dL Above high MEDGEN (St normal Juan C's [facility], ) A/G Ratio 0.9 Below low normal [facility] ([facility], ) Bilirubin.total 0.3 Normal (applies MEDGEN ( St [Mass/volume] in mg/dL to non-numeric Juan C's Serum or Plasma results) [facility], ) Alkaline 53 IU/L Normal (applies MEDGEN [...] Serum or Plasma ID Date Data Source [id number] 08/27/2019 12:00:00 AM EST [facility] ([facility], ) Name Value Range Interpretation Description Data Sup porting Code Source(s) Document(s ) Leukocytes 11.8 Above high normal MEDGEN (St [#/volume] in x10E3/uL Juan C's Blood by [facility], ) Automated count Erythrocytes 3.28 Below low normal [facility] (St [#/volume] in x10E6/uL Juan C's Blood by [facility], ) Automated count Hemoglobin 10.8 Below low normal [facility] (St [Mass/volume] in g/dL Juan C's Blood [facility], ) Hematocrit 31.7 % Below low normal [facility] (St [Volume Juan C's Fraction] of [facility], ) Blood by Automated count MCV 97 fL Normal (applies MEDGEN (St to non-numeric Juan C's results) [facility], ) MCH 32.9 pg Normal (applies MEDGEN (St to non-numeric Juan C's results) [facility], ) MCHC 34.1 Normal (applies MEDGEN (St g/dL to non-numeric Juan C's results) [facility], ) RDW 17.5 % Above high normal [facility] ([facility], ) Platelets 237 Normal (applies MEDGEN (St [#/area] in x10E3/uL to non-numeric Juan C's Blood by results) [facility], ) Microscopy high power field Neutrophils [#] 53 % Normal (applies MEDGEN ( St in Body fluid by to non-numeric Juan C's Manual count results) [facility]) Lymphs 20 % Normal (applies MEDGEN (St to non-numeric Juan C's results) [facility], ) Monocytes 13 % Normal (applies MEDGEN (St [#/volume] in to non-numeric Juan C's Cord blood results) [facility]) Eos 12 % Normal (applies MEDGEN (St to non-numeric Juan C's results) [facility], ) Basos 1 % Normal (applies MEDGEN (St to non-numeric Juan C's results) [facility], ) Neutrophils 6.2 Normal (applies MEDGEN (St (Absolute) x10E3/uL to non-numeric Juan C's results) [facility]) Lymphs 2.4 Normal (applies MEDGEN (St (Absolute) x10E3/uL to non-numeric Juan C's results) [facility], ) Monocytes(Absolu 1.5 Above high normal MEDGE N (St te) x10E3/uL Juan C's [facility], ) Eos (Absolute) 1.5 Above high normal [facility] (St x10E3/uL Juan C's [facility], ) Baso (Absolute) 0.1 Normal (applies MEDGEN ( St x10E3/uL to non-numeric Juan C's results) [facility], ) Immature 1 % Normal (applies MEDGEN (St Granulocytes to non-numeric Juan C's results) [facility]) Immature Grans 0.2 Above high normal MEDGEN (St (Abs) x10E3/uL Juan C's [facility], ) Hematology Note: Normal (applies MEDGEN (St Comments: to non-numeric Juan C's results) [facility]) ID Date Data Source [id number] 08/27/2019 12:00:00 AM EST [facility] ([facility], ) Name Value Range Interpretation Code Description Data Lisa rce(s) Supporting Document(s ) TSH 3.560 Normal (applies to MEDGEN (St uIU/mL non-numeric Juan C's results) [facility], ) T4,Free(D 1.22 ng/dL Normal (applies to MEDGEN (St irect) non-numeric Juan C's results) [facility]) ID Date Data Source [id number] 08/27/2019 12:00:00 AM EST [facility] ([facility], ) Name Value Range Interpretation Description Data Sup porting Code Source(s) Document(s ) No Urine Test not Normal (applies to MEDGEN (St Received performed non-numeric Juan C's . results) Medical, ) ID Date Data Source [id number] 08/27/2019 12:00:00 AM EST [facility] ([facility], ) Name Value Range Interpretation Description Data Sup porting Code Source(s) Document(s ) Vitamin D, 42.8 Normal (applies to MEDGEN (St 25-Hydroxy ng/mL non-numeric Juan C's results) Medical, ) ID Date Data Source [id number] 08/27/2019 12:00:00 AM EST MED[facility] ( [facility], ) Name Value Range Interpretation Description Data Sup porting Code Source(s) Document(s ) Hemoglobin 6.2 % Above high normal MEDGEN (St A1c/Hemoglobin. Juan C's total in Blood Medical, ) ID Date Data Source [id number] 08/27/2019 12:00:00 AM EST [facility] ([facility], ) Name Value Range Interpretation Description Data Sup porting Code Source(s) Document(s ) Folate 10.5 Normal (applies to MEDGEN (St (Folic ng/mL non-numeric Juan C's Acid), Serum results) Medical, ) Vitamin B12 385 pg/mL Normal (applies to MEDGEN (S t non-numeric Juan C's results) Medical, ) ID Date Data Source [id number] 08/27/2019 12:00:00 AM EST [facility] ([facility], ) Name Value Range Interpretation Description Data Sup porting Code Source(s) Document(s ) Cholesterol 80 mg/dL Below low normal MEDGEN (St [Mass/volume] in Juan C's Serum or Plasma Medical, ) Triglyceride 200 Above high normal MEDGEN (S t [Mass/volume] in mg/dL Juan C's Serum or Plasma Medical, ) HDL Cholesterol 25 mg/dL Below low normal [facility] ([facility], ) VLDL Cholesterol 40 mg/dL Normal (applies MEDGEN (St Nils to non-numeric Juan C's results) Medical, ) LDL Cholesterol 15 mg/dL Normal (applies MEDGEN ( St Calc to non-numeric Juan C's results) Medical, ) ID Date Data Source [id number] 08/27/2019 12:00:00 AM EST [facility] ([facility], ) Name Value Range Interpretation Description [...] Juan C's Blood by Tablet d. results) [facility], ) Glucose Test not Normal (applies MEDGEN (St [Mass/volume] in performe to non-numeric Juan C's Urine collected d. results) [facility], ) for unspecified duration ID Date Data Source [id number] 08/27/2019 12:00:00 AM EST [facility] ([facility], ) Name Value Range Interpretation Description Data Sup porting Code Source(s) Document(s ) Glucose 87 mg/dL Normal (applies MEDGEN (St [Mass/volume] in to non-numeric Juan C's Urine collected for results) [facility], unspecified ) duration Urea nitrogen 36 mg/dL Above high MEDGEN (St [Mass/volume] in normal Juan C's Serum or Plasma [facility], ) Creatinine 2.81 Above high MEDGEN (St [Interpretation] in mg/dL normal Juan C's Urine [facility], ) eGFR If NonAfricn 21 Below low normal MEDGE N (St Am mL/min/1 Juan C's .73 [facility], ) eGFR If Africn Am 24 Below low normal MEDGE N (St mL/min/1 Juan C's .73 [facility], ) Sodium 135 Normal (applies MEDGEN (St [Moles/volume] in mmol/L to non-numeric Juan C's Serum or Plasma results) [facility], ) BUN/Creatinine 13 Normal (applies MEDGEN (S t Ratio to non-numeric Juan C's results) [facility], ) Potassium 4.1 Normal (applies MEDGEN (St [Mass/volume] in mmol/L to non-numeric Juan C's Blood results) [facility], ) Chloride 102 Normal (applies MEDGEN (St [Moles/volume] in mmol/L to non-numeric Juan C's Serum or Plasma results) Medical, ) Calcium 9.8 Normal (applies MEDGEN (St [Moles/volume] in mg/dL to non-numeric Juan C's Urine collected for results) [facility], unspecified ) duration Carbon dioxide, 20 Normal (applies MEDGEN ( St total mmol/L to non-numeric Juan C's [Moles/volume] in results) Medical, Serum or Plasma ) Protein 9.0 g/dL Above high MEDGEN (St [Mass/volume] in normal Juan C's Serum or Plasma [facility], ) Microalbumin 4.2 g/dL Normal (applies MEDGEN (St [Mass/time] in to non-numeric Juan C's Urine collected for results) [facility], unspecified ) duration Globulin, Total 4.8 g/dL Above high MEDGEN ([facility], ) A/G Ratio 0.9 Below low normal MEDGEN ([facility], ) Bilirubin.total 0.3 Normal (applies MEDGEN ( St [Mass/volume] in mg/dL to non-numeric Juan C's Serum or Plasma results) [facility], ) Alkaline 53 IU/L Normal (applies MEDGEN [...] Serum or Plasma ID Date Data Source [id number] 08/27/2019 12:00:00 AM EST MED[facility] ([facility], ) Name Value Range Interpretation Description Data Sup porting Code Source(s) Document(s ) Leukocytes 11.8 Above high normal MEDGEN (St [#/volume] in x10E3/uL Juan C's Blood by [facility], ) Automated count Erythrocytes 3.28 Below low normal MEDGEN (St [#/volume] in x10E6/uL Juan C's Blood by [facility], ) Automated count Hemoglobin 10.8 Below low normal MEDGEN (St [Mass/volume] in g/dL [facility] Blood [facility], ) MCV 97 fL Normal (applies MEDGEN (St to non-numeric Juan C's results) [facility], ) Hematocrit 31.7 % Below low normal MEDGEN (St [Volume Juan C's Fraction] of [facility], ) Blood by Automated count MCH 32.9 pg Normal (applies MEDGEN (St to non-numeric Juan C's results) [facility], ) MCHC 34.1 Normal (applies MEDGEN (St g/dL to non-numeric Juan C's results) [facility], ) RDW 17.5 % Above high normal MEDGEN ([facility], ) Platelets 237 Normal (applies MEDGEN (St [#/area] in x10E3/uL to non-numeric Juan C's Blood by results) [facility], ) Microscopy high power field Neutrophils [#] 53 % Normal (applies MEDGEN ( St in Body fluid by to non-numeric Juan C's Manual count results) [facility], ) Lymphs 20 % Normal (applies MEDGEN (St to non-numeric Juan C's results) [facility], ) Eos 12 % Normal (applies MEDGEN (St to non-numeric Juan C's results) [facility], ) Monocytes 13 % Normal (applies MEDGEN (St [#/volume] in to non-numeric Juan C's Cord blood results) [facility]) Basos 1 % Normal (applies MEDGEN (St to non-numeric Juan C's results) [facility]) Neutrophils 6.2 Normal (applies MEDGEN (St (Absolute) x10E3/uL to non-numeric Juan C's results) [facility], ) Monocytes(Absolu 1.5 Above high normal MEDGE N (St te) x10E3/uL Juan C's [facility], ) Lymphs 2.4 Normal (applies MEDGEN (St (Absolute) x10E3/uL to non-numeric Juan C's results) [facility], ) Eos (Absolute) 1.5 Above high normal MEDGEN (St x10E3/uL Juan C's [facility], ) Baso (Absolute) 0.1 Normal (applies MEDGEN ( St x10E3/uL to non-numeric Juan C's results) [facility]) Immature 1 % Normal (applies MEDGEN (St Granulocytes to non-numeric Juan C's results) [facility]) Immature Grans 0.2 Above high normal MEDGEN (St (Abs) x10E3/uL Juan C's [facility], ) Hematology Note: Normal (applies MEDGEN (St Comments: to non-numeric Juan C's results) Medical, ) ID Date Data Source [id number] 08/27/2019 12:00:00 AM EST [facility] ([facility], ) Name Value Range Interpretation Code Description Data Lisa rce(s) Supporting Document(s ) TSH 3.560 Normal (applies to MEDGEN (St uIU/mL non-numeric Juan C's results) Medical, ) T4,Free(D 1.22 ng/dL Normal (applies to MEDGEN (St irect) non-numeric Juan C's results) Medical, ) ID Date Data Source [id number] 08/27/2019 12:00:00 AM EST MEDGEN ([facility], ) Name Value Range Interpretation Description Data Sup porting Code Source(s) Document(s ) No Urine Test not Normal (applies to MEDGEN (St Received performed non-numeric Juan C's . results) Medical, ) ID Date Data Source [id number] 08/27/2019 12:00:00 AM EST [facility]GEN ([facility], ) Name Value Range Interpretation Description Data Sup porting Code Source(s) Document(s ) Vitamin D, 42.8 Normal (applies to MEDGEN (St 25-Hydroxy ng/mL non-numeric Juan C's results) Medical, ) ID Date Data Source [id number] 08/27/2019 12:00:00 AM EST [facility]GEN ([facility], ) Name Value Range Interpretation Description Data Sup porting Code Source(s) Document(s ) Hemoglobin 6.2 % Above high normal MEDGEN (St A1c/Hemoglobin. Juan C's total in Blood Medical, ) ID Date Data Source [id number] 08/27/2019 12:00:00 AM EST [facility] ([facility], ) Name Value Range Interpretation Description Data Sup porting Code Source(s) Document(s ) Folate 10.5 Normal (applies to MEDGEN (St (Folic ng/mL non-numeric Juan C's Acid), Serum results) Medical, ) Vitamin B12 385 pg/mL Normal (applies to MEDGEN (S t non-numeric Juan C's results) Medical, ) ID Date Data Source [id number] 08/27/2019 12:00:00 AM EST [facility] ([facility], ) Name Value Range Interpretation Description Data Sup porting Code Source(s) Document(s ) Cholesterol 80 mg/dL Below low normal MEDGEN (St [Mass/volume] in Juan C's Serum or Plasma [facility], ) Triglyceride 200 Above high normal MEDGEN (S t [Mass/volume] in mg/dL Juan C's Serum or Plasma [facility], ) HDL Cholesterol 25 mg/dL Below low normal MEDGEN ([facility], ) VLDL Cholesterol 40 mg/dL Normal (applies MEDGEN (St Nils to non-numeric Juan C's results) [facility], ) LDL Cholesterol 15 mg/dL Normal (applies MEDGEN ( St Calc to non-numeric Juan C's results) [facility], ) ID Date Data Source [id number] 08/27/2019 12:00:00 AM EST [facility] ([facility], ) Name Value Range Interpretation Description Data Sup porting Code Source(s) Document(s ) Specific gravity Test not Normal (applies MEDGEN (St of Pericardial performe to non-numeric Juan C's fluid by d. results) Medical, ) Refractometry pH of Lower Test not Normal (applies MEDGEN (St respiratory performe to non-numeric Juan C's specimen d. results) [facility], ) Protein Test not Normal (applies MEDGEN (St [Mass/volume] in performe to non-numeric Juan C's Lower d. results) [facility], ) respiratory specimen Glucose Test not Normal (applies MEDGEN (St [Mass/volume] in performe to non-numeric Juan C's Urine collected d. results) [facility], ) for unspecified duration Ketones Test not Normal (applies MEDGEN (St [Presence] in performe to non-numeric Juan C's Blood by Tablet d. results) [facility], ) ID Date Data Source [id number] 08/27/2019 12:00:00 AM EST [facility] ([facility]) Name Value Range Interpretation Description Data Sup porting Code Source(s) Document(s ) Glucose 87 mg/dL Normal (applies MEDGEN (St [Mass/volume] in to non-numeric Juan C's Urine collected for results) [facility], [facility] ) duration Urea nitrogen 36 mg/dL Above high MEDGEN (St [Mass/volume] in normal Juan C's Serum or Plasma [facility], ) Creatinine 2.81 Above high MEDGEN (St [Interpretation] in mg/dL normal Juan C's Urine Medical, ) eGFR If NonAfricn 21 Below low normal MEDGE N (St Am mL/min/1 [facility] [address], ) BUN/Creatinine 13 Normal (applies MEDGEN (S t Ratio to non-numeric Juan C's results) Medical, ) eGFR If Africn Am 24 Below low normal MEDGE N (St mL/min/1 [facility]'s [address] [facility], ) Sodium 135 Normal (applies MEDGEN (St [Moles/volume] in mmol/L to non-numeric Juan C's Serum or Plasma results) Medical, ) Chloride 102 Normal (applies [...] Serum or Plasma ID Date Data Source [id number] 08/27/2019 12:00:00 AM EST MEDGEN ([facility], ) Name Value Range Interpretation Description Data Sup porting Code Source(s) Document(s ) Leukocytes 11.8 Above high normal MEDGEN (St [#/volume] in x10E3/uL Juan C's Blood by [facility], ) Automated count Erythrocytes 3.28 Below low normal MEDGEN (St [#/volume] in x10E6/uL Juan C's Blood by [facility], ) Automated count Hematocrit 31.7 % Below low normal MEDGEN (St [Volume Juan C's Fraction] of [facility], ) Blood by Automated count Hemoglobin 10.8 Below low normal MEDGEN (St [Mass/volume] in g/dL Juan C's Blood [facility], ) MCV 97 fL Normal (applies MEDGEN (St to non-numeric Juan C's results) [facility], ) MCHC 34.1 Normal (applies MEDGEN (St g/dL to non-numeric Juan C's results) [facility], ) MCH 32.9 pg Normal (applies MEDGEN (St to non-numeric Juan C's results) [facility], ) RDW 17.5 % Above high normal [facility]GEN ([facility], ) Platelets 237 Normal (applies MEDGEN (St [#/area] in x10E3/uL to non-numeric Juan C's Blood by results) [facility], ) Microscopy high power field Neutrophils [#] 53 % Normal (applies MEDGEN ( St in Body fluid by to non-numeric Juan C's Manual count results) [facility], ) Lymphs 20 % Normal (applies MEDGEN (St to non-numeric Juan C's results) [facility], ) Monocytes 13 % Normal (applies MEDGEN (St [#/volume] in to non-numeric Juan C's Cord blood results) [facility], ) Basos 1 % Normal (applies MEDGEN (St to non-numeric Juan C's results) [facility], ) Eos 12 % Normal (applies MEDGEN (St to non-numeric Juan C's results) [facility], ) Neutrophils 6.2 Normal (applies MEDGEN (St (Absolute) x10E3/uL to non-numeric Juan C's results) Medical, ) Lymphs 2.4 Normal (applies MEDGEN (St (Absolute) x10E3/uL to non-numeric Juan C's results) [facility], ) Monocytes(Absolu 1.5 Above high normal MEDGE N (St te) x10E3/uL Juan C's [facility], ) Eos (Absolute) 1.5 Above high normal MEDGEN (St x10E3/uL [facility], ) Immature 1 % Normal (applies MEDGEN (St Granulocytes to non-numeric Juanc 's results) [facility], ) Baso (Absolute) 0.1 Normal (applies MEDGEN ( St x10E3/uL to non-numeric Juan C's results) [facility], ) Hematology Note: Normal (applies MEDGEN (St Comments: to non-numeric Juan C's results) [facility], ) Immature Grans 0.2 Above high normal MEDGEN (St (Abs) x10E3/uL Juan C's [facility], ) ID Date Data Source [id number] 08/27/2019 12:00:00 AM EST [facility] ([facility], ) Name Value Range Interpretation Code Description Data Lisa rce(s) Supporting Document(s ) TSH 3.560 Normal (applies to MEDGEN (St uIU/mL non-numeric Juan C's results) [facility], ) T4,Free(D 1.22 ng/dL Normal (applies to MEDGEN (St irect) non-numeric Juan C's results) [facility], ) ID Date Data Source [id number] 08/27/2019 12:00:00 AM EST [facility] ([facility], ) Name Value Range Interpretation Description Data Sup porting Code Source(s) Document(s ) No Urine Test not Normal (applies to MEDGEN (St Received performed non-numeric Juan C's . results) [facility], ) ID Date Data Source [id number] 08/27/2019 12:00:00 AM EST [facility] ([facility], ) Name Value Range Interpretation Description Data Sup porting Code Source(s) Document(s ) Vitamin D, 42.8 Normal (applies to MEDGEN (St 25-Hydroxy ng/mL non-numeric Juan C's results) [facility], ) ID Date Data Source [id number] 08/27/2019 12:00:00 AM EST [facility]GEN ([facility], ) Name Value Range Interpretation Description Data Sup porting Code Source(s) Document(s ) Hemoglobin 6.2 % Above high normal MEDGEN (St A1c/Hemoglobin. Juan C's total in Blood [facility], ) ID Date Data Source [id number] 08/27/2019 12:00:00 AM EST MEDGEN ([facility], ) Name Value Range Interpretation Description Data Sup porting Code Source(s) Document(s ) Vitamin B12 385 pg/mL Normal (applies to MEDGEN (S t non-numeric Juan C's results) [facility], ) Folate 10.5 Normal (applies to MEDGEN (St (Folic ng/mL non-numeric Juan C's Acid), Serum results) [facility], ) ID Date Data Source [id number] 08/27/2019 12:00:00 AM EST MEDGEN ([facility], ) Name Value Range Interpretation Description Data Sup porting Code Source(s) Document(s ) Cholesterol 80 mg/dL Below low normal MEDGEN (St [Mass/volume] in Juan C's Serum or Plasma [facility], ) Triglyceride 200 Above high normal MEDGEN (S t [Mass/volume] in mg/dL Juan C's Serum or Plasma [facility], ) HDL Cholesterol 25 mg/dL Below low normal [facility]GEN ([facility], ) LDL Cholesterol 15 mg/dL Normal (applies MEDGEN ( St Calc to non-numeric Juan C's results) [facility]) VLDL Cholesterol 40 mg/dL Normal (applies MEDGEN (St Nils to non-numeric Juan C's results) [facility], ) ID Date Data Source [id number] 08/27/2019 12:00:00 AM EST MEDGEN ([facility], ) Name Value Range Interpretation Description Data Sup porting Code Source(s) Document(s ) Specific gravity Test not Normal (applies MEDGEN (St of Pericardial performe to non-numeric Juan C's fluid by d. results) [facility], ) Refractometry Protein Test not Normal (applies MEDGEN (St [Mass/volume] in performe to non-numeric Juan C's Lower d. results) [facility], ) respiratory specimen pH of Lower Test not Normal (applies MEDGEN (St respiratory performe to non-numeric Juan C's specimen d. results) [facility], ) Ketones Test not Normal (applies MEDGEN (St [Presence] in performe to non-numeric Juan C's Blood by Tablet d. results) Medical, ) Glucose Test not Normal (applies MEDGEN (St [Mass/volume] in performe to non-numeric Juan C's Urine collected d. results) Medical, ) for unspecified duration ID Date Data Source [id number] 08/27/2019 12:00:00 AM EST [facility] ([facility], ) Name Value Range Interpretation Description [...] N (St Am mL/min/1 Juan C's .73 [facility], ) eGFR If Africn Am 24 Below low normal MEDGE N (St mL/min/1 Juan C's .73 [facility], ) BUN/Creatinine 13 Normal (applies MEDGEN (S [...] in normal Juan C's Serum or Plasma [facility], ) Microalbumin 4.2 g/dL Normal (applies MEDGEN (St [Mass/time] in to non-numeric Juan C's Urine collected for results) [facility], unspecified ) duration Globulin, Total 4.8 g/dL Above high MEDGEN (St normal [facility], ) Bilirubin.total 0.3 Normal (applies MEDGEN ( St [Mass/volume] in mg/dL to non-numeric Juan C's Serum or Plasma results) [facility], ) A/G Ratio 0.9 Below low normal MEDGEN ([facility], ) Alkaline 53 IU/L Normal (applies MEDGEN (St phosphatase to non-numeric Juan C's [Enzymatic results) Medical, activity/volume] in ) Serum, Plasma or Blood Aspartate 22 IU/L Normal (applies MEDGEN (St aminotransferase to non-numeric Juan C's [Enzymatic results) [facility], activity/volume] in ) Serum or Plasma Alanine 20 IU/L Normal (applies MEDGEN (St aminotransferase to non-numeric Juan C's [Enzymatic results) [facility], activity/volume] in ) Serum or Plasma ID Date Data Source [id number] 08/27/2019 12:00:00 AM EST [facility]GEN ([facility], ) Name Value Range Interpretation Description Data Sup porting Code Source(s) Document(s ) Leukocytes 11.8 Above high normal MEDGEN (St [#/volume] in x10E3/uL Juan C's Blood by [facility], ) Automated count Erythrocytes 3.28 Below low normal MEDGEN (St [#/volume] in x10E6/uL Juan C's Blood by [facility], ) Automated count Hemoglobin 10.8 Below low normal MEDGEN (St [Mass/volume] in g/dL Juan C's Blood [facility], ) Hematocrit 31.7 % Below low normal MEDGEN (St [Volume Juan C's Fraction] of [facility], ) Blood by Automated count MCH 32.9 pg Normal (applies MEDGEN (St to non-numeric Juan C's results) [facility], ) MCV 97 fL Normal (applies MEDGEN (St to non-numeric Juan C's results) [facility], ) MCHC 34.1 Normal (applies MEDGEN (St g/dL to non-numeric Juan C's results) [facility], ) RDW 17.5 % Above high normal MEDGEN ([facility], ) Platelets 237 Normal (applies MEDGEN (St [#/area] in x10E3/uL to non-numeric Juan C's Blood by results) [facility]) Microscopy high power field Lymphs 20 % Normal (applies MEDGEN (St to non-numeric Juan C's results) [facility]) Neutrophils [#] 53 % Normal (applies MEDGEN ( St in Body fluid by to non-numeric Juan C's Manual count results) [facility]) Monocytes 13 % Normal (applies MEDGEN (St [#/volume] in to non-numeric Juan C's Cord blood results) [facility]) Eos 12 % Normal (applies MEDGEN (St to non-numeric Juan C's results) [facility]) Basos 1 % Normal (applies MEDGEN (St to non-numeric Juan C's results) [facility]) Neutrophils 6.2 Normal (applies MEDGEN (St (Absolute) x10E3/uL to non-numeric Juan C's results) [facility]) Lymphs 2.4 Normal (applies MEDGEN (St (Absolute) x10E3/uL to non-numeric Juan C's results) [facility]) Eos (Absolute) 1.5 Above high normal MEDGEN (St x10E3/uL [facility]) Monocytes(Absolu 1.5 Above high normal MEDGE N (St te) x10E3/uL [facility]) Immature 1 % Normal (applies MEDGEN (St Granulocytes to non-numeric Juan C's results) [facility]) Baso (Absolute) 0.1 Normal (applies MEDGEN ( St x10E3/uL to non-numeric Juan C's results) [facility]) Immature Grans 0.2 Above high normal MEDGEN (St (Abs) x10E3/uL [facility]) Hematology Note: Normal (applies MEDGEN (St Comments: to non-numeric Juan C's results) [facility]) ID Date Data Source [id number] 08/27/2019 12:00:00 AM EST [facility]GEN ([facility], ) Name Value Range Interpretation Code Description Data Lisa rce(s) Supporting Document(s ) TSH 3.560 Normal (applies to MEDGEN (St uIU/mL non-numeric Juan C's results) [facility]) T4,Free(D 1.22 ng/dL Normal (applies to [...] EN (St 12:00:00 AM EDT smoked smoked [facility], [facility]) Smoking 04/12/2020 Denies current completed [...] (St 12:00:00 AM EDT smoked smoked [facility]) Smoking 03/27/2020 Denies current [...] (St 12:00:00 AM EDT smoked smoked [facility]) Smoking 03/24/2020 Denies current completed Denies current MEDGEN (St 12:00:00 AM EDT tobacco use, tobacco use, Juan C' s Medical, Former smoker, 30+ Former smoker, 30 + PC) years ago, denies years ago, denies any alcohol or any alcohol or ilicit drug use. ilicit drug use. Retired Denies Retired Denies having a having a colonoscopy in the colonoscopy in [facility] past past Smoking 03/24/2020 Unknown if [...] (St 12:00:00 AM EDT smoked smoked [facility]) Vital Signs ID Date Data Source [id number] Name Value Range Interpretation Code Description Data Source(s) Heart rate 79 /min 79 /min MEDGEN ([facility] , ) Inhaled oxygen 95 % 95 % MEDGEN ([facility], ) Body mass index 22.7 kg/m2 22.7 kg/m2 MEDGEN (S t (BMI) [Ratio] [facility], ) Diastolic blood 80 mm[Hg] 80 mm[Hg] MEDGEN (S t pressure [facility] , ) Systolic blood 160 mm[Hg] 160 mm[Hg] MEDGEN ([facility] , ) Body weight 128 lb 128 lb MEDGEN ([facility] , ) Body height 63 in 63 in MEDGEN ([facility] , ) Heart rate 84 /min 84 /min [facility] ([facility] , ) Respiratory rate 14 /min 14 /min MEDGEN ( [facility] , ) Body mass index 22.3 kg/m2 22.3 kg/m2 MEDGEN (S t (BMI) [Ratio] [facility], ) Diastolic blood 86 mm[Hg] 86 mm[Hg] MEDGEN (S t pressure [facility] , ) Systolic blood 166 mm[Hg] 166 mm[Hg] MEDGEN (St [facility] , ) Body weight 126 lb 126 lb MEDGEN ([facility] , ) Body height 63 in 63 in MEDGEN ([facility] , ) Heart rate 84 /min 84 /min MEDGEN ([facility] , ) Respiratory rate 14 /min 14 /min [facility] ( [facility] , ) Body mass index 22.3 kg/m2 22.3 kg/m2 MEDGEN (S t (BMI) [Ratio] [facility], ) Diastolic blood 86 mm[Hg] 86 mm[Hg] MEDGEN (S t pressure [facility] , ) Systolic blood 166 mm[Hg] 166 mm[Hg] MEDGEN (St [facility] , ) Body weight 126 lb 126 lb MEDGEN ([facility]) Body height 63 in 63 in MEDGEN ([facility] , ) Heart rate 84 /min 84 /min MEDGEN ([facility] , ) Respiratory rate 14 /min 14 /min MEDGEN ( [facility] , ) Body mass index 22.1 kg/m2 22.1 kg/m2 MEDGEN (S t (BMI) [Ratio] [facility], ) Diastolic blood 80 mm[Hg] 80 mm[Hg] MEDGEN (S t pressure [facility] , ) Systolic blood 154 mm[Hg] 154 mm[Hg] MEDGEN (St [facility] , ) Body weight 125 lb 125 lb MEDGEN ([facility]) Body height 63 in 63 in MEDGEN ([facility] , ) Heart rate 84 /min 84 /min [facility] ([facility] , ) Respiratory rate 14 /min 14 /min MEDGEN ( [facility] , ) Body mass index 22.1 kg/m2 22.1 kg/m2 MEDGEN (S t (BMI) [Ratio] [facility], ) Diastolic blood 80 mm[Hg] 80 mm[Hg] MEDGEN (S t pressure [facility] , ) Systolic blood 154 mm[Hg] 154 mm[Hg] MEDGEN (St pressure [facility] , ) Body weight 125 lb 125 lb MEDGEN ([facility]) Body height 63 in 63 in MEDGEN ([facility] , ) Heart rate 84 /min 84 /min MED[facility] ([facility] , ) Respiratory rate 14 /min 14 /min MEDGEN ( [facility] , ) Body mass index 22.1 kg/m2 22.1 kg/m2 MEDGEN (S t (BMI) [Ratio] Juan C's [facility], ) Diastolic blood 80 mm[Hg] 80 mm[Hg] MEDGEN (S t pressure [facility] , ) Systolic blood 154 mm[Hg] 154 mm[Hg] MEDGEN (St pressure [facility] , ) Body weight 125 lb 125 lb MEDGEN ([facility] , ) Body height 63 in 63 in MEDGEN ([facility] , ) Heart rate 84 /min 84 /min MEDGEN ([facility] , ) Respiratory rate 14 /min 14 /min MEDGEN ( [facility] , ) Body mass index 22.3 kg/m2 22.3 kg/m2 MEDGEN (S t (BMI) [Ratio] Juan C's [facility], ) Diastolic blood 94 mm[Hg] 94 mm[Hg] MEDGEN (S t pressure [facility] , ) Systolic blood 180 mm[Hg] 180 mm[Hg] MEDGEN (St [facility] , ) Body weight 126 lb 126 lb MEDGEN ([facility] , ) Body height 63 in 63 in MEDGEN ([facility] , ) Heart rate 84 /min 84 /min MEDGEN ([facility] , ) Respiratory rate 14 /min 14 /min MEDGEN ( [facility] [facility] Body mass index 22.3 kg/m2 22.3 kg/m2 MEDGEN (S t (BMI) [Ratio] [facility], ) Diastolic blood 94 mm[Hg] 94 mm[Hg] MEDGEN (S t pressure [facility] , ) Systolic blood 180 mm[Hg] 180 mm[Hg] MEDGEN (St pressure [facility] , ) Body weight 126 lb 126 lb MEDGEN ([facility] , ) Body height 63 in 63 in MEDGEN ([facility] , ) Heart rate 84 /min 84 /min MEDGEN ([facility] , ) Respiratory rate 14 /min 14 /min MEDGEN ( [facility] , ) Body mass index 22.3 kg/m2 22.3 kg/m2 MEDGEN (S t (BMI) [Ratio] [facility], ) Diastolic blood 94 mm[Hg] 94 mm[Hg] MEDGEN (S t pressure [facility]) Systolic blood 180 mm[Hg] 180 mm[Hg] MEDGEN ([facility]) Body weight 126 lb 126 lb MEDGEN ([facility]) Body height 63 in 63 in MEDGEN ([facility]) Heart rate 84 /min 84 /min MEDGEN ([facility]) Respiratory rate 14 /min 14 /min MEDGEN ( [facility]) Body mass index 22.3 kg/m2 22.3 kg/m2 MEDGEN (S t (BMI) [Ratio] [facility], ) Diastolic blood 94 mm[Hg] 94 mm[Hg] MEDGEN (S t pressure [facility]) Systolic blood 180 mm[Hg] 180 mm[Hg] MEDGEN ([facility]) Body weight 126 lb 126 lb MEDGEN ([facility]) Body height 63 in 63 in MEDGEN ([facility]) Heart rate 84 /min 84 /min MEDGEN ([facility]) Respiratory rate 15 /min 15 /min MEDGEN ( [facility]) Inhaled oxygen 92 % 92 % MEDGEN ([facility], ) Body mass index 23.2 kg/m2 23.2 kg/m2 MEDGEN (S t (BMI) [Ratio] [facility], ) Diastolic blood 89 mm[Hg] 89 mm[Hg] MEDGEN (S t pressure [facility] , ) Systolic blood 188 mm[Hg] 188 mm[Hg] MEDGEN ([facility]) Body weight 131 lb 131 lb MEDGEN ([facility]) Body height 63 in 63 in MEDGEN ([facility]) Heart rate 84 /min 84 /min MEDGEN ([facility]) Respiratory rate 15 /min 15 /min MEDGEN ( [facility]) Inhaled oxygen 92 % 92 % MEDGEN ([facility], ) Body mass index 23.2 kg/m2 23.2 kg/m2 MEDGEN (S t (BMI) [Ratio] [facility], ) Diastolic blood 89 mm[Hg] 89 mm[Hg] MEDGEN (S t pressure [facility]) Systolic blood 188 mm[Hg] 188 mm[Hg] MEDGEN ([facility] , ) Body weight 131 lb 131 lb MEDGEN ([facility] , ) Body height 63 in 63 in MEDGEN ([facility] , ) Heart rate 84 /min 84 /min MEDGEN ([facility] , ) Respiratory rate 15 /min 15 /min MEDGEN ( [facility] , ) Inhaled oxygen 92 % 92 % MEDGEN (St concentration [facility], ) Body mass index 23.2 kg/m2 23.2 kg/m2 MEDGEN (S t (BMI) [Ratio] [facility], ) Diastolic blood 89 mm[Hg] 89 mm[Hg] MEDGEN (S t pressure [facility] , ) Systolic blood 188 mm[Hg] 188 mm[Hg] MEDGEN ([facility] , ) Body weight 131 lb 131 lb MEDGEN ([facility] , ) Body height 63 in 63 in MEDGEN ([facility] , ) Heart rate 84 /min 84 /min MEDGEN ([facility] , ) Respiratory rate 15 /min 15 /min MEDGEN ( [facility] , ) Inhaled oxygen 92 % 92 % MEDGEN ([facility], ) Body mass index 23.2 kg/m2 23.2 kg/m2 MEDGEN (S t (BMI) [Ratio] [facility], ) Diastolic blood 89 mm[Hg] 89 mm[Hg] MEDGEN (S t pressure [facility] , ) Systolic blood 188 mm[Hg] 188 mm[Hg] MEDGEN ([facility] , ) Body weight 131 lb 131 lb MEDGEN ([facility] , ) Body height 63 in 63 in MEDGEN ([facility] , ) Heart rate 84 /min 84 /min MEDGEN ([facility] , ) Respiratory rate 15 /min 15 /min MEDGEN ( [facility] , ) Inhaled oxygen 92 % 92 % MEDGEN ([facility], ) Body mass index 23.2 kg/m2 23.2 kg/m2 MEDGEN (S t (BMI) [Ratio] [facility], ) Diastolic blood 89 mm[Hg] 89 mm[Hg] MEDGEN (S t pressure [facility] , ) Systolic blood 188 mm[Hg] 188 mm[Hg] MEDGEN ([facility] , ) Body weight 131 lb 131 lb MEDGEN ([facility]) Body height 63 in 63 in MEDGEN ([facility]) Respiratory rate 16 /min 16 /min MEDGEN ( [facility] , ) Body mass index 23.2 kg/m2 23.2 kg/m2 MEDGEN (S t (BMI) [Ratio] [facility], ) Diastolic blood 90 mm[Hg] 90 mm[Hg] MEDGEN (S t pressure [facility] , ) Systolic blood 180 mm[Hg] 180 mm[Hg] MEDGEN ([facility] , ) Body weight 131 lb 131 lb MEDGEN ([facility] , ) Body height 63 in 63 in MEDGEN ([facility]) Respiratory rate 16 /min 16 /min MEDGEN ( [facility] , ) Body mass index 23.2 kg/m2 23.2 kg/m2 MEDGEN (S t (BMI) [Ratio] [facility], ) Diastolic blood 90 mm[Hg] 90 mm[Hg] MEDGEN (S t pressure [facility] , ) Systolic blood 180 mm[Hg] 180 mm[Hg] MEDGEN ([facility] , ) Body weight 131 lb 131 lb MEDGEN ([facility]) Body height 63 in 63 in MEDGEN ([facility]) Respiratory rate 16 /min 16 /min MEDGEN ( [facility] , ) Body mass index 23.2 kg/m2 23.2 kg/m2 MEDGEN (S t (BMI) [Ratio] [facility], ) Diastolic blood 90 mm[Hg] 90 mm[Hg] MEDGEN (S t pressure [facility] , ) Systolic blood 180 mm[Hg] 180 mm[Hg] MEDGEN ([facility] , ) Body weight 131 lb 131 lb MEDGEN ([facility]) Body height 63 in 63 in MEDGEN ([facility]) Respiratory rate 16 /min 16 /min MEDGEN ( [facility]) Body mass index 23.2 kg/m2 23.2 kg/m2 MEDGEN (S t (BMI) [Ratio] [facility], ) Diastolic blood 90 mm[Hg] 90 mm[Hg] MEDGEN (S t pressure [facility]) Systolic blood 180 mm[Hg] 180 mm[Hg] MEDGEN ([facility]) Body weight 131 lb 131 lb MEDGEN ([facility]) Body height 63 in 63 in MEDGEN ([facility]) Respiratory rate 16 /min 16 /min MEDGEN ( [facility]) Body mass index 23.2 kg/m2 23.2 kg/m2 MEDGEN (S t (BMI) [Ratio] [facility], ) Diastolic blood 90 mm[Hg] 90 mm[Hg] MEDGEN (S t pressure [facility]) Systolic blood 180 mm[Hg] 180 mm[Hg] MEDGEN ([facility]) Body weight 131 lb 131 lb MEDGEN ([facility]) Body height 63 in 63 in MEDGEN ([facility]) Respiratory rate 16 /min 16 /min MEDGEN ( [facility]) Body mass index 23.2 kg/m2 23.2 kg/m2 MEDGEN (S t (BMI) [Ratio] [facility], ) Diastolic blood 90 mm[Hg] 90 mm[Hg] MEDGEN (S t pressure [facility]) Systolic blood 180 mm[Hg] 180 mm[Hg] MEDGEN ([facility]) Body weight 131 lb 131 lb MEDGEN ([facility]) Body height 63 in 63 in MEDGEN ([facility]) Heart rate 72 /min 72 /min MEDGEN ([facility]) Respiratory rate 16 /min 16 /min MEDGEN ( [facility]) Body mass index 23.2 kg/m2 23.2 kg/m2 MEDGEN (S t (BMI) [Ratio] [facility], ) Diastolic blood 58 mm[Hg] 58 mm[Hg] MEDGEN (S t pressure [facility]) Systolic blood 110 mm[Hg] 110 mm[Hg] MEDGEN ([facility]) Body weight 131 lb 131 lb MEDGEN ([facility]) Body height 63 in 63 in MEDGEN ([facility]) Heart rate 72 /min 72 /min MEDGEN ([facility]) Respiratory rate 16 /min 16 /min MEDGEN ( [facility]) Body mass index 23.2 kg/m2 23.2 kg/m2 MEDGEN (S t (BMI) [Ratio] [facility], ) Diastolic blood 58 mm[Hg] 58 mm[Hg] MEDGEN (S t [facility]) Systolic blood 110 mm[Hg] 110 mm[Hg] MEDGEN ([facility]) Body weight 131 lb 131 lb MEDGEN ([facility]) Body height 63 in 63 in MEDGEN ([facility]) Heart rate 72 /min 72 /min MEDGEN ([facility]) Respiratory rate 16 /min 16 /min MEDGEN ( [facility]) Body mass index 23.2 kg/m2 23.2 kg/m2 MEDGEN (S t (BMI) [Ratio] [facility], ) Diastolic blood 58 mm[Hg] 58 mm[Hg] MEDGEN (S [facility]) Systolic blood 110 mm[Hg] 110 mm[Hg] MEDGEN ([facility]) Body weight 131 lb 131 lb MEDGEN ([facility]) Body height 63 in 63 in MEDGEN ([facility]) Heart rate 72 /min 72 /min MEDGEN ([facility]) Respiratory rate 16 /min 16 /min MEDGEN ( [facility]) Body mass index 23.2 kg/m2 23.2 kg/m2 MEDGEN (S t (BMI) [Ratio] [facility] Diastolic blood 58 mm[Hg] 58 mm[Hg] MEDGEN (S t pressure [facility]) Systolic blood 110 mm[Hg] 110 mm[Hg] MEDGEN ([facility]) Body weight 131 lb 131 lb MEDGEN ([facility]) Body height 63 in 63 in MEDGEN ([facility]) Heart rate 72 /min 72 /min MEDGEN ([facility]) Respiratory rate 16 /min 16 /min MEDGEN ( [facility]) Body mass index 23.2 kg/m2 23.2 kg/m2 MEDGEN (S t (BMI) [Ratio] [facility], ) Diastolic blood 58 mm[Hg] 58 mm[Hg] MEDGEN (S t pressure [facility] , ) Systolic blood 110 mm[Hg] 110 mm[Hg] MEDGEN ([facility] , ) Body weight 131 lb 131 lb MEDGEN ([facility]) Body height 63 in 63 in MEDGEN ([facility]) Heart rate 72 /min 72 /min MEDGEN ([facility]) Respiratory rate 16 /min 16 /min MEDGEN ( [facility] , ) Body mass index 23.2 kg/m2 23.2 kg/m2 MEDGEN (S t (BMI) [Ratio] [facility], ) Diastolic blood 58 mm[Hg] 58 mm[Hg] MEDGEN (S t pressure [facility] , ) Systolic blood 110 mm[Hg] 110 mm[Hg] MEDGEN ([facility]) Body weight 131 lb 131 lb MEDGEN ([facility]) Body height 63 in 63 in MEDGEN ([facility]) Heart rate 72 /min 72 /min MEDGEN ([facility]) Respiratory rate 16 /min 16 /min MEDGEN ( [facility]) Body mass index 23.2 kg/m2 23.2 kg/m2 MEDGEN (S t (BMI) [Ratio] [facility], ) Diastolic blood 58 mm[Hg] 58 mm[Hg] MEDGEN (S t pressure [facility] , ) Systolic blood 110 mm[Hg] 110 mm[Hg] MEDGEN ([facility] , ) Body weight 131 lb 131 lb MEDGEN ([facility]) Body height 63 in 63 in MEDGEN ([facility]) Heart rate 58 /min 58 /min MEDGEN ([facility]) Inhaled oxygen 96 % 96 % MEDGEN ([facility], ) Diastolic blood 58 mm[Hg] 58 mm[Hg] MEDGEN (S t pressure [facility] , ) Systolic blood 120 mm[Hg] 120 mm[Hg] MEDGEN ([facility] , ) Body weight 126 lb 126 lb MEDGEN ([facility] , ) Heart rate 58 /min 58 /min MEDGEN ([facility] , ) Inhaled oxygen 96 % 96 % MEDGEN ([facility], ) Diastolic blood 58 mm[Hg] 58 mm[Hg] MEDGEN (S t pressure [facility] , ) Systolic blood 120 mm[Hg] 120 mm[Hg] MEDGEN ([facility] , ) Body weight 126 lb 126 lb MEDGEN ([facility] , ) Heart rate 58 /min 58 /min MEDGEN ([facility] , ) Inhaled oxygen 96 % 96 % MEDGEN ([facility], ) Diastolic blood 58 mm[Hg] 58 mm[Hg] MEDGEN (S t pressure [facility] , ) Systolic blood 120 mm[Hg] 120 mm[Hg] MEDGEN ([facility] , ) Body weight 126 lb 126 lb MEDGEN ([facility] , ) Heart rate 58 /min 58 /min MEDGEN ([facility] , ) Inhaled oxygen 96 % 96 % MEDGEN ([facility], ) Diastolic blood 58 mm[Hg] 58 mm[Hg] MEDGEN (S t pressure [facility] , ) Systolic blood 120 mm[Hg] 120 mm[Hg] MEDGEN ([facility] , ) Body weight 126 lb 126 lb MEDGEN ([facility] , ) Heart rate 58 /min 58 /min MEDGEN ([facility] , ) Inhaled oxygen 96 % 96 % MEDGEN ([facility], ) Diastolic blood 58 mm[Hg] 58 mm[Hg] MEDGEN (S t pressure [facility] , ) Systolic blood 120 mm[Hg] 120 mm[Hg] MEDGEN ([facility] , ) Body weight 126 lb 126 lb MEDGEN ([facility] ) Heart rate 58 /min 58 /min MEDGEN ([facility] , ) Inhaled oxygen 96 % 96 % MEDGEN (St concentration [facility], ) Diastolic blood 58 mm[Hg] 58 mm[Hg] MEDGEN (S t pressure [facility] , ) Systolic blood 120 mm[Hg] 120 mm[Hg] MEDGEN ([facility] , ) Body weight 126 lb 126 lb MEDGEN ([facility] , ) Heart rate 58 /min 58 /min MEDGEN ([facility] , ) Inhaled oxygen 96 % 96 % MEDGEN ([facility], ) Diastolic blood 58 mm[Hg] 58 mm[Hg] MEDGEN (S t pressure [facility] , ) Systolic blood 120 mm[Hg] 120 mm[Hg] MEDGEN ([facility] , ) Body weight 126 lb 126 lb MEDGEN ([facility] , ) Heart rate 58 /min 58 /min MEDGEN ([facility] , ) Inhaled oxygen 96 % 96 % MEDGEN ([facility], ) Diastolic blood 58 mm[Hg] 58 mm[Hg] MEDGEN (S t pressure [facility] , ) Systolic blood 120 mm[Hg] 120 mm[Hg] MEDGEN ([facility] , ) Body weight 126 lb 126 lb MEDGEN ([facility] , ) Heart rate 81 /min 81 /min MEDGEN ([facility] , ) Respiratory rate 12 /min 12 /min MEDGEN ( [facility] , ) Body temperature 98 F 98 F MEDGEN ( [facility] , ) Inhaled oxygen 100 % 100 % MEDGEN (St concentration [facility], ) Diastolic blood 78 mm[Hg] 78 mm[Hg] MEDGEN (S t pressure [facility] , ) Systolic blood 136 mm[Hg] 136 mm[Hg] MEDGEN ([facility] , ) Heart rate 81 /min 81 /min MEDGEN ([facility] , ) Respiratory rate 12 /min 12 /min MEDGEN ( [facility] , ) Body temperature 98 F 98 F MEDGEN ( [facility] , ) Inhaled oxygen 100 % 100 % MEDGEN ([facility], ) Diastolic blood 78 mm[Hg] 78 mm[Hg] [...] oxygen 100 % 100 % MEDGEN ([facility], ) Diastolic blood 78 mm[Hg] 78 mm[Hg] MEDGEN (S t pressure [facility] , ) Systolic blood 136 mm[Hg] 136 mm[Hg] MEDGEN ([facility] , ) Heart rate 81 /min 81 /min MEDGEN ([facility] , ) Respiratory rate 12 /min 12 /min MEDGEN ( [facility] , ) Body temperature 98 F 98 F MEDGEN ( [facility] , ) Inhaled oxygen 100 % 100 % MEDGEN ([facility], ) Diastolic blood 78 mm[Hg] 78 mm[Hg] MEDGEN (S t pressure [facility] , ) Systolic blood 136 mm[Hg] 136 mm[Hg] MEDGEN ([facility] , ) Heart rate 81 /min 81 /min MEDGEN ([facility] , ) Respiratory rate 12 /min 12 /min MEDGEN ( [facility] , ) Body temperature 98 F 98 F MEDGEN ( [facility] , ) Inhaled oxygen 100 % 100 % MEDGEN ([facility], ) Diastolic blood 78 mm[Hg] 78 mm[Hg] MEDGEN (S t pressure [facility] , ) Systolic blood 136 mm[Hg] 136 mm[Hg] MEDGEN ([facility] , ) Heart rate 81 /min 81 /min MEDGEN ([facility] , ) Respiratory rate 12 /min 12 /min MEDGEN ( [facility] , ) Body temperature 98 F 98 F MEDGEN ( [facility] , ) Inhaled oxygen 100 % 100 % MEDGEN (St [facility]) Diastolic blood 78 mm[Hg] 78 mm[Hg] MEDGEN (S t pressure [facility]) Systolic blood 136 mm[Hg] 136 mm[Hg] MEDGEN (St pressure [facility]) Heart rate 81 /min 81 /min MEDGEN ([facility]) Respiratory rate 12 /min 12 /min MEDGEN ( [facility] Body temperature 98 F 98 F MEDGEN ( [facility]) Inhaled oxygen 100 % 100 % MEDGEN (St [facility]) Diastolic blood 78 mm[Hg] 78 mm[Hg] MEDGEN (S t pressure [facility]) Systolic blood 136 mm[Hg] 136 mm[Hg] MEDGEN (St pressure [facility]) Heart rate 81 /min 81 /min MEDGEN ([facility]) Respiratory rate 12 /min 12 /min MEDGEN ( [facility] Body temperature 98 F 98 F MEDGEN ( [facility]) Inhaled oxygen 100 % 100 % MEDGEN (St [facility]) Diastolic blood 78 mm[Hg] 78 mm[Hg] MEDGEN (S t pressure [facility]) Systolic blood 136 mm[Hg] 136 mm[Hg] MEDGEN (St pressure [facility]) Heart rate 81 /min 81 /min MEDGEN ([facility]) Respiratory rate 12 /min 12 /min MEDGEN ( [facility] Body temperature 98 F 98 F MEDGEN ( [facility]) Inhaled oxygen 100 % 100 % MEDGEN (St concentration [facility], [facility]) Diastolic blood 78 mm[Hg] 78 mm[Hg] MEDGEN (S t pressure [facility]) Systolic blood 136 mm[Hg] 136 mm[Hg] MEDGEN (St pressure [facility]) Heart rate 81 /min 81 /min MEDGEN ([facility]) Respiratory rate 12 /min 12 /min MEDGEN ( [facility]) Body temperature 98 F 98 F MEDGEN ( [facility] , ) Inhaled oxygen 100 % 100 % MEDGEN (St concentration [facility]) Diastolic blood 78 mm[Hg] 78 mm[Hg] MEDGEN (S t pressure [facility] , ) Systolic blood 136 mm[Hg] 136 mm[Hg] MEDGEN ([facility] , ) Heart rate 81 /min 81 /min MEDGEN ([facility]) Respiratory rate 12 /min 12 /min MEDGEN ( [facility] , ) Body temperature 98 F 98 F MEDGEN ( [facility]) Inhaled oxygen 100 % 100 % MEDGEN ([facility], ) Diastolic blood 78 mm[Hg] 78 mm[Hg] MEDGEN (S t pressure [facility]) Systolic blood 136 mm[Hg] 136 mm[Hg] MEDGEN ([facility]) Heart rate 84 /min 84 /min MEDGEN ([facility]) Respiratory rate 14 /min 14 /min MEDGEN ( [facility]) Body mass index 23.2 kg/m2 23.2 kg/m2 MEDGEN (S t (BMI) [Ratio] [facility], ) Diastolic blood 70 mm[Hg] 70 mm[Hg] MEDGEN (S t pressure [facility]) Systolic blood 140 mm[Hg] 140 mm[Hg] MEDGEN ([facility]) Body weight 131 lb 131 lb MEDGEN ([facility]) Body height 63 in 63 in MEDGEN ([facility]) Heart rate 84 /min 84 /min MEDGEN ([facility]) Respiratory rate 14 /min 14 /min MEDGEN ( [facility]) Body mass index 23.2 kg/m2 23.2 kg/m2 MEDGEN (S t (BMI) [Ratio] [facility], ) Diastolic blood 70 mm[Hg] 70 mm[Hg] MEDGEN (S t pressure [facility]) Systolic blood 140 mm[Hg] 140 mm[Hg] MEDGEN ([facility] , ) Body weight 131 lb 131 lb MEDGEN ([facility]) Body height 63 in 63 in MEDGEN ([facility]) Heart rate 84 /min 84 /min MEDGEN ([facility]) Respiratory rate 14 /min 14 /min MEDGEN ( [facility] , ) Body mass index 23.2 kg/m2 23.2 kg/m2 MEDGEN (S t (BMI) [Ratio] [facility], ) Diastolic blood 70 mm[Hg] 70 mm[Hg] MEDGEN (S t pressure [facility] , ) Systolic blood 140 mm[Hg] 140 mm[Hg] MEDGEN ([facility] , ) Body weight 131 lb 131 lb MEDGEN ([facility] , ) Body height 63 in 63 in MEDGEN ([facility] , ) Heart rate 84 /min 84 /min MEDGEN ([facility] , ) Respiratory rate 14 /min 14 /min MEDGEN ( [facility] , ) Body mass index 23.2 kg/m2 23.2 kg/m2 MEDGEN (S t (BMI) [Ratio] [facility], ) Diastolic blood 70 mm[Hg] 70 mm[Hg] MEDGEN (S t pressure [facility] , ) Systolic blood 140 mm[Hg] 140 mm[Hg] MEDGEN ([facility] , ) Body weight 131 lb 131 lb MEDGEN ([facility] , ) Body height 63 in 63 in MEDGEN ([facility] , ) Heart rate 84 /min 84 /min MEDGEN ([facility] , ) Respiratory rate 14 /min 14 /min MEDGEN ( [facility] , ) Body mass index 23.2 kg/m2 23.2 kg/m2 MEDGEN (S t (BMI) [Ratio] [facility], ) Diastolic blood 70 mm[Hg] 70 mm[Hg] MEDGEN (S t pressure [facility] , ) Systolic blood 140 mm[Hg] 140 mm[Hg] MEDGEN ([facility] , ) Body weight 131 lb 131 lb MEDGEN ([facility] , ) Body height 63 in 63 in MEDGEN ([facility] , ) Heart rate 84 /min 84 /min MEDGEN ([facility] , ) Respiratory rate 14 /min 14 /min MEDGEN ( [facility] , ) Body mass index 23.2 kg/m2 23.2 kg/m2 MEDGEN (S t (BMI) [Ratio] [facility] [facility], ) Diastolic blood 70 mm[Hg] 70 mm[Hg] MEDGEN (S t pressure [facility] , ) Systolic blood 140 mm[Hg] 140 mm[Hg] MEDGEN ([facility] , ) Body weight 131 lb 131 lb MEDGEN ([facility]) Body height 63 in 63 in MEDGEN ([facility]) Heart rate 84 /min 84 /min MEDGEN ([facility]) Respiratory rate 14 /min 14 /min MEDGEN ( [facility] , ) Body mass index 23.2 kg/m2 23.2 kg/m2 MEDGEN (S t (BMI) [Ratio] [facility], ) Diastolic blood 70 mm[Hg] 70 mm[Hg] MEDGEN (S t pressure [facility] , ) Systolic blood 140 mm[Hg] 140 mm[Hg] MEDGEN ([facility] , ) Body weight 131 lb 131 lb MEDGEN ([facility]) Body height 63 in 63 in MEDGEN ([facility]) Heart rate 84 /min 84 /min MEDGEN ([facility]) Respiratory rate 14 /min 14 /min MEDGEN ( [facility]) Body mass index 23.2 kg/m2 23.2 kg/m2 MEDGEN (S t (BMI) [Ratio] [facility], ) Diastolic blood 70 mm[Hg] 70 mm[Hg] MEDGEN (S t pressure [facility] , ) Systolic blood 140 mm[Hg] 140 mm[Hg] MEDGEN ([facility] , ) Body weight 131 lb 131 lb MEDGEN ([facility]) Body height 63 in 63 in MEDGEN ([facility]) Heart rate 84 /min 84 /min MEDGEN ([facility]) Respiratory rate 14 /min 14 /min MEDGEN ( [facility]) Body mass index 23.2 kg/m2 23.2 kg/m2 MEDGEN (S t (BMI) [Ratio] [facility], ) Diastolic blood 70 mm[Hg] 70 mm[Hg] MEDGEN (S t pressure [facility] , ) Systolic blood 140 mm[Hg] 140 mm[Hg] MEDGEN ([facility] , ) Body weight 131 lb 131 lb MEDGEN ([facility]) Body height 63 in 63 in MEDGEN ([facility] , ) Heart rate 84 /min 84 /min MEDGEN ([facility] , ) Respiratory rate 14 /min 14 /min MEDGEN ( [facility] , ) Body mass index 23.2 kg/m2 23.2 kg/m2 MEDGEN (S t (BMI) [Ratio] [facility], ) Diastolic blood 70 mm[Hg] 70 mm[Hg] MEDGEN (S t pressure [facility] , ) Systolic blood 140 mm[Hg] 140 mm[Hg] MEDGEN ([facility] , ) Body weight 131 lb 131 lb MEDGEN ([facility]) Body height 63 in 63 in MEDGEN ([facility] , ) Heart rate 84 /min 84 /min MEDGEN ([facility] , ) Respiratory rate 14 /min 14 /min MEDGEN ( [facility] , ) Body mass index 23.2 kg/m2 23.2 kg/m2 MEDGEN (S t (BMI) [Ratio] [facility], ) Diastolic blood 70 mm[Hg] 70 mm[Hg] MEDGEN (S t pressure [facility] , ) Systolic blood 140 mm[Hg] 140 mm[Hg] MEDGEN ([facility] , ) Body weight 131 lb 131 lb MEDGEN ([facility]) Body height 63 in 63 in MEDGEN ([facility]) Heart rate 84 /min 84 /min MEDGEN ([facility] , ) Respiratory rate 14 /min 14 /min MEDGEN ( [facility] , ) Body mass index 23.2 kg/m2 23.2 kg/m2 MEDGEN (S t (BMI) [Ratio] [facility], ) Diastolic blood 70 mm[Hg] 70 mm[Hg] MEDGEN (S t pressure [facility] , ) Systolic blood 140 mm[Hg] 140 mm[Hg] MEDGEN (St [facility]) Body weight 131 lb 131 lb MEDGEN ([facility]) Body height 63 in 63 in MEDGEN ([facility]) Heart rate 68 /min 68 /min MEDGEN ([facility]) Respiratory rate 15 /min 15 /min MEDGEN ( [facility]) Inhaled oxygen 96 % 96 % MEDGEN ([facility], ) Body mass index 23.7 kg/m2 23.7 kg/m2 MEDGEN (S t (BMI) [Ratio] [facility], ) Diastolic blood 83 mm[Hg] 83 mm[Hg] MEDGEN (S t pressure [facility]) Systolic blood 155 mm[Hg] 155 mm[Hg] MEDGEN ([facility]) Body weight 134 lb 134 lb MEDGEN ([facility]) Body height 63 in 63 in MEDGEN ([facility]) Heart rate 68 /min 68 /min MEDGEN ([facility]) Respiratory rate 15 /min 15 /min MEDGEN ( [facility]) Inhaled oxygen 96 % 96 % MEDGEN ([facility], ) Body mass index 23.7 kg/m2 23.7 kg/m2 MEDGEN (S t (BMI) [Ratio] [facility], ) Diastolic blood 83 mm[Hg] 83 mm[Hg] MEDGEN (S t pressure [facility]) Systolic blood 155 mm[Hg] 155 mm[Hg] MEDGEN ([facility]) Body weight 134 lb 134 lb MEDGEN ([facility]) Body height 63 in 63 in MEDGEN ([facility]) Heart rate 68 /min 68 /min MEDGEN ([facility]) Respiratory rate 15 /min 15 /min MEDGEN ( [facility]) Inhaled oxygen 96 % 96 % MEDGEN ([facility], ) Body mass index 23.7 kg/m2 23.7 kg/m2 MEDGEN (S t (BMI) [Ratio] [facility], ) Diastolic blood 83 mm[Hg] 83 mm[Hg] MEDGEN (S t pressure [facility]) Systolic blood 155 mm[Hg] 155 mm[Hg] MEDGEN ([facility] , ) Body weight 134 lb 134 lb MEDGEN ([facility] , ) Body height 63 in 63 in MEDGEN ([facility]) Heart rate 68 /min 68 /min MEDGEN ([facility] , ) Respiratory rate 15 /min 15 /min MEDGEN ( [facility] , ) Inhaled oxygen 96 % 96 % MEDGEN ([facility], ) Body mass index 23.7 kg/m2 23.7 kg/m2 MEDGEN (S t (BMI) [Ratio] [facility], ) Diastolic blood 83 mm[Hg] 83 mm[Hg] MEDGEN (S t pressure [facility] , ) Systolic blood 155 mm[Hg] 155 mm[Hg] MEDGEN ([facility] , ) Body weight 134 lb 134 lb MEDGEN ([facility]) Body height 63 in 63 in MEDGEN ([facility] , ) Heart rate 68 /min 68 /min MEDGEN ([facility] , ) Respiratory rate 15 /min 15 /min MEDGEN ( [facility] , ) Inhaled oxygen 96 % 96 % MEDGEN ([facility], ) Body mass index 23.7 kg/m2 23.7 kg/m2 MEDGEN (S t (BMI) [Ratio] [facility], ) Diastolic blood 83 mm[Hg] 83 mm[Hg] MEDGEN (S t pressure [facility] , ) Systolic blood 155 mm[Hg] 155 mm[Hg] MEDGEN ([facility] , ) Body weight 134 lb 134 lb MEDGEN ([facility]) Body height 63 in 63 in MEDGEN ([facility]) Heart rate 68 /min 68 /min MEDGEN ([facility] , ) Respiratory rate 15 /min 15 /min MEDGEN ( [facility] , ) Inhaled oxygen 96 % 96 % MEDGEN ([facility], ) Body mass index 23.7 kg/m2 23.7 kg/m2 MEDGEN (S t (BMI) [Ratio] [facility], ) Diastolic blood 83 mm[Hg] 83 mm[Hg] MEDGEN (S t pressure [facility] , ) Systolic blood 155 mm[Hg] 155 mm[Hg] MEDGEN ([facility] , ) Body weight 134 lb 134 lb MEDGEN ([facility] , ) Body height 63 in 63 in MEDGEN ([facility]) Heart rate 68 /min 68 /min MEDGEN ([facility] , ) Respiratory rate 15 /min 15 /min MEDGEN ( [facility] , ) Inhaled oxygen 96 % 96 % MEDGEN ([facility], ) Body mass index 23.7 kg/m2 23.7 kg/m2 MEDGEN (S t (BMI) [Ratio] [facility], ) Diastolic blood 83 mm[Hg] 83 mm[Hg] MEDGEN (S t pressure [facility] , ) Systolic blood 155 mm[Hg] 155 mm[Hg] MEDGEN ([facility] , ) Body weight 134 lb 134 lb MEDGEN ([facility] , ) Body height 63 in 63 in MEDGEN ([facility] , ) Heart rate 68 /min 68 /min MEDGEN ([facility] , ) Respiratory rate 15 /min 15 /min MEDGEN ( [facility] , ) Inhaled oxygen 96 % 96 % MEDGEN ([facility], ) Body mass index 23.7 kg/m2 23.7 kg/m2 MEDGEN (S t (BMI) [Ratio] [facility], ) Diastolic blood 83 mm[Hg] 83 mm[Hg] MEDGEN (S t pressure [facility] , ) Systolic blood 155 mm[Hg] 155 mm[Hg] MEDGEN ([facility] , ) Body weight 134 lb 134 lb MEDGEN ([facility]) Body height 63 in 63 in MEDGEN ([facility] , ) Heart rate 68 /min 68 /min MEDGEN ([facility] , ) Respiratory rate 15 /min 15 /min MEDGEN ( [facility] , ) Inhaled oxygen 96 % 96 % MEDGEN ([facility], ) Body mass index 23.7 kg/m2 23.7 kg/m2 MEDGEN (S t (BMI) [Ratio] [facility], ) Diastolic blood 83 mm[Hg] 83 mm[Hg] MEDGEN (S t pressure [facility] , ) Systolic blood 155 mm[Hg] 155 mm[Hg] MEDGEN ([facility] , ) Body weight 134 lb 134 lb MEDGEN ([facility] , ) Body height 63 in 63 in MEDGEN ([facility] , ) Heart rate 68 /min 68 /min MEDGEN ([facility] , ) Respiratory rate 15 /min 15 /min MEDGEN ( [facility] , ) Inhaled oxygen 96 % 96 % MEDGEN ([facility], ) Body mass index 23.7 kg/m2 23.7 kg/m2 MEDGEN (S t (BMI) [Ratio] [facility], ) Diastolic blood 83 mm[Hg] 83 mm[Hg] MEDGEN (S t pressure [facility] , ) Systolic blood 155 mm[Hg] 155 mm[Hg] MEDGEN ([facility] , ) Body weight 134 lb 134 lb MEDGEN ([facility] , ) Body height 63 in 63 in MEDGEN ([facility] , ) Heart rate 68 /min 68 /min MEDGEN ([facility] , ) Respiratory rate 15 /min 15 /min MEDGEN ( [facility] , ) Inhaled oxygen 96 % 96 % MEDGEN ([facility], ) Body mass index 23.7 kg/m2 23.7 kg/m2 MEDGEN (S t (BMI) [Ratio] [facility], ) Diastolic blood 83 mm[Hg] 83 mm[Hg] MEDGEN (S t pressure [facility] , ) Systolic blood 155 mm[Hg] 155 mm[Hg] MEDGEN ([facility] , ) Body weight 134 lb 134 lb MEDGEN ([facility] , ) Body height 63 in 63 in MEDGEN ([facility] , ) Heart rate 68 /min 68 /min MEDGEN ([facility] , ) Respiratory rate 15 /min 15 /min MEDGEN ( [facility] , ) Inhaled oxygen 96 % 96 % MEDGEN ([facility], ) Body mass index 23.7 kg/m2 23.7 kg/m2 MEDGEN (S t (BMI) [Ratio] [facility], ) Diastolic blood 83 mm[Hg] 83 mm[Hg] MEDGEN (S t pressure [facility] , ) Systolic blood 155 mm[Hg] 155 mm[Hg] MEDGEN ([facility] , ) Body weight 134 lb 134 lb MEDGEN ([facility]) Body height 63 in 63 in MEDGEN ([facility]) Heart rate 65 /min 65 /min MEDGEN ([facility]) Inhaled oxygen 96 % 96 % MEDGEN ([facility], ) Body mass index 23.7 kg/m2 23.7 kg/m2 MEDGEN (S t (BMI) [Ratio] [facility], ) Diastolic blood 82 mm[Hg] 82 mm[Hg] MEDGEN (S t pressure [facility] , ) Systolic blood 150 mm[Hg] 150 mm[Hg] MEDGEN ([facility] , ) Body weight 134 lb 134 lb MEDGEN ([facility]) Body height 63 in 63 in MEDGEN ([facility]) Heart rate 65 /min 65 /min MEDGEN ([facility]) Inhaled oxygen 96 % 96 % MEDGEN ([facility], ) Body mass index 23.7 kg/m2 23.7 kg/m2 MEDGEN (S t (BMI) [Ratio] [facility], ) Diastolic blood 82 mm[Hg] 82 mm[Hg] MEDGEN (S t pressure [facility] , ) Systolic blood 150 mm[Hg] 150 mm[Hg] MEDGEN ([facility] , ) Body weight 134 lb 134 lb MEDGEN ([facility]) Body height 63 in 63 in MEDGEN ([facility]) Heart rate 65 /min 65 /min MEDGEN ([facility]) Inhaled oxygen 96 % 96 % MEDGEN ([facility], ) Body mass index 23.7 kg/m2 23.7 kg/m2 MEDGEN (S t (BMI) [Ratio] [facility], ) Diastolic blood 82 mm[Hg] 82 mm[Hg] MEDGEN (S t pressure [facility]) Systolic blood 150 mm[Hg] 150 mm[Hg] MEDGEN ([facility]) Body weight 134 lb 134 lb MEDGEN ([facility]) Body height 63 in 63 in MEDGEN ([facility]) Heart rate 65 /min 65 /min MEDGEN ([facility]) Inhaled oxygen 96 % 96 % MEDGEN ([facility], ) Body mass index 23.7 kg/m2 23.7 kg/m2 MEDGEN (S t (BMI) [Ratio] [facility], ) Diastolic blood 82 mm[Hg] 82 mm[Hg] MEDGEN (S t pressure [facility] , ) Systolic blood 150 mm[Hg] 150 mm[Hg] MEDGEN ([facility] , ) Body weight 134 lb 134 lb MEDGEN ([facility]) Body height 63 in 63 in MEDGEN ([facility]) Heart rate 65 /min 65 /min MEDGEN ([facility]) Inhaled oxygen 96 % 96 % MEDGEN ([facility], ) Body mass index 23.7 kg/m2 23.7 kg/m2 MEDGEN (S t (BMI) [Ratio] [facility], ) Diastolic blood 82 mm[Hg] 82 mm[Hg] MEDGEN (S t pressure [facility] , ) Systolic blood 150 mm[Hg] 150 mm[Hg] MEDGEN ([facility] , ) Body weight 134 lb 134 lb MEDGEN ([facility]) Body height 63 in 63 in MEDGEN ([facility]) Heart rate 65 /min 65 /min MEDGEN ([facility]) Inhaled oxygen 96 % 96 % MEDGEN ([facility], ) Body mass index 23.7 kg/m2 23.7 kg/m2 MEDGEN (S t (BMI) [Ratio] [facility], ) Diastolic blood 82 mm[Hg] 82 mm[Hg] MEDGEN (S t pressure [facility] , ) Systolic blood 150 mm[Hg] 150 mm[Hg] MEDGEN ([facility] , ) Body weight 134 lb 134 lb MEDGEN ([facility]) Body height 63 in 63 in MEDGEN ([facility]) Heart rate 65 /min 65 /min MEDGEN ([facility]) Inhaled oxygen 96 % 96 % MEDGEN ([facility], ) Body mass index 23.7 kg/m2 23.7 kg/m2 MEDGEN (S t (BMI) [Ratio] [facility], ) Diastolic blood 82 mm[Hg] 82 mm[Hg] MEDGEN (S t pressure [facility] , ) Systolic blood 150 mm[Hg] 150 mm[Hg] MEDGEN ([facility] , ) Body weight 134 lb 134 lb MEDGEN ([facility]) Body height 63 in 63 in MEDGEN ([facility]) Heart rate 65 /min 65 /min MEDGEN ([facility] , ) Inhaled oxygen 96 % 96 % MEDGEN ([facility], ) Body mass index 23.7 kg/m2 23.7 kg/m2 MEDGEN (S t (BMI) [Ratio] [facility], ) Diastolic blood 82 mm[Hg] 82 mm[Hg] MEDGEN (S t pressure [facility] , ) Systolic blood 150 mm[Hg] 150 mm[Hg] MEDGEN ([facility] , ) Body weight 134 lb 134 lb MEDGEN ([facility]) Body height 63 in 63 in MEDGEN ([facility]) Heart rate 65 /min 65 /min MEDGEN ([facility]) Inhaled oxygen 96 % 96 % MEDGEN ([facility], ) Body mass index 23.7 kg/m2 23.7 kg/m2 MEDGEN (S t (BMI) [Ratio] [facility], ) Diastolic blood 82 mm[Hg] 82 mm[Hg] MEDGEN (S t pressure [facility] , ) Systolic blood 150 mm[Hg] 150 mm[Hg] MEDGEN ([facility] , ) Body weight 134 lb 134 lb MEDGEN ([facility]) Body height 63 in 63 in MEDGEN ([facility]) Heart rate 65 /min 65 /min MEDGEN ([facility]) Inhaled oxygen 96 % 96 % MEDGEN ([facility]) Body mass index 23.7 kg/m2 23.7 kg/m2 MEDGEN (S t (BMI) [Ratio[place] [facility] Diastolic blood 82 mm[Hg] 82 mm[Hg] MEDGEN (S t [facility]) Systolic blood 150 mm[Hg] 150 mm[Hg] MEDGEN ([facility]) Body weight 134 lb 134 lb MEDGEN ([facility]) Body height 63 in 63 in MEDGEN ([facility]) Heart rate 65 /min 65 /min MEDGEN ([facility]) Inhaled oxygen 96 % 96 % MEDGEN ([facility]) Body mass index 23.7 kg/m2 23.7 kg/m2 MEDGEN (S t (BMI) [Ratio] [facility], ) Diastolic blood 82 mm[Hg] 82 mm[Hg] MEDGEN (S t [facility]) Systolic blood 150 mm[Hg] 150 mm[Hg] MEDGEN ([facility]) Body weight 134 lb 134 lb MEDGEN ([facility]) Body height 63 in 63 in MEDGEN ([facility]) Heart rate 65 /min 65 /min MEDGEN ([facility]) Inhaled oxygen 96 % 96 % MEDGEN ([facility]) Body mass index 23.7 kg/m2 23.7 kg/m2 MEDGEN (S t (BMI) [Ratio] [facility] Diastolic blood 82 mm[Hg] 82 mm[Hg] MEDGEN (S t pressure [facility]) Systolic blood 150 mm[Hg] 150 mm[Hg] MEDGEN ([facility]) Body weight 134 lb 134 lb MEDGEN ([facility]) Body height 63 in 63 in MEDGEN ([facility]) Heart rate 87 /min 87 /min MEDGEN ([facility]) Respiratory rate 14 /min 14 /min MEDGEN ( [facility] , ) Body temperature 98.7 F 98.7 F MEDGEN ( [facility] , ) Inhaled oxygen 96 % 96 % MEDGEN ([facility], ) Diastolic blood 99 mm[Hg] 99 mm[Hg] MEDGEN (S t pressure [facility] , ) Systolic blood 211 mm[Hg] 211 mm[Hg] MEDGEN ([facility] , ) Body weight 139 lb 139 lb MEDGEN ([facility] , ) Heart rate 87 /min 87 /min MEDGEN ([facility] , ) Respiratory rate 14 /min 14 /min MEDGEN ( [facility] , ) Body temperature 98.7 F 98.7 F MEDGEN ( [facility] , ) Inhaled oxygen 96 % 96 % MEDGEN ([facility], ) Diastolic blood 99 mm[Hg] 99 mm[Hg] MEDGEN (S t pressure [facility] , ) Systolic blood 211 mm[Hg] 211 mm[Hg] MEDGEN ([facility] , ) Body weight 139 lb 139 lb MEDGEN ([facility] , ) Heart rate 87 /min 87 /min MEDGEN ([facility] , ) Respiratory rate 14 /min 14 /min MEDGEN ( [facility] , ) Body temperature 98.7 F 98.7 F MEDGEN ( [facility] , ) Inhaled oxygen 96 % 96 % MEDGEN ([facility], ) Diastolic blood 99 mm[Hg] 99 mm[Hg] MEDGEN (S t pressure [facility] , ) Systolic blood 211 mm[Hg] 211 mm[Hg] MEDGEN ([facility] , ) Body weight 139 lb 139 lb MEDGEN ([facility] , ) Heart rate 87 /min 87 /min MEDGEN ([facility] , ) Respiratory rate 14 /min 14 /min MEDGEN ( [facility] , ) Body temperature 98.7 F 98.7 F MEDGEN ( [facility] , ) Inhaled oxygen 96 % 96 % MEDGEN ([facility], ) Diastolic blood 99 mm[Hg] 99 mm[Hg] MEDGEN (S t pressure [facility] , ) Systolic blood 211 mm[Hg] 211 mm[Hg] MEDGEN ([facility] , ) Body weight 139 lb 139 lb MEDGEN ([facility] , ) Heart rate 87 /min 87 /min MEDGEN ([facility] , ) Respiratory rate 14 /min 14 /min MEDGEN ( [facility] , ) Body temperature 98.7 F 98.7 F MEDGEN ( [facility] , ) Inhaled oxygen 96 % 96 % MEDGEN ([facility], ) Diastolic blood 99 mm[Hg] 99 mm[Hg] MEDGEN (S t pressure [facility] , ) Systolic blood 211 mm[Hg] 211 mm[Hg] MEDGEN ([facility] , ) Body weight 139 lb 139 lb MEDGEN ([facility] , ) Heart rate 87 /min 87 /min MEDGEN ([facility] , ) Respiratory rate 14 /min 14 /min MEDGEN ( [facility] , ) Body temperature 98.7 F 98.7 F MEDGEN ( [facility] , ) Inhaled oxygen 96 % 96 % MEDGEN ([facility], ) Diastolic blood 99 mm[Hg] 99 mm[Hg] MEDGEN (S t pressure [facility] , ) Systolic blood 211 mm[Hg] 211 mm[Hg] MEDGEN ([facility] , ) Body weight 139 lb 139 lb MEDGEN ([facility] , ) Heart rate 87 /min 87 /min MEDGEN ([facility] , ) Respiratory rate 14 /min 14 /min MEDGEN ( [facility] , ) Body temperature 98.7 F 98.7 F MEDGEN ( [facility] , ) Inhaled oxygen 96 % 96 % MEDGEN ( concentration [facility], ) Diastolic blood 99 mm[Hg] 99 mm[Hg] MEDGEN (S t pressure [facility] , ) Systolic blood 211 mm[Hg] 211 mm[Hg] MEDGEN ([facility] , ) Body weight 139 lb 139 lb MEDGEN ([facility] , ) Heart rate 87 /min 87 /min MEDGEN ([facility] , ) Respiratory rate 14 /min 14 /min MEDGEN ( [facility] , ) Body temperature 98.7 F 98.7 F MEDGEN ( [facility] , ) Inhaled oxygen 96 % 96 % MEDGEN ([facility], ) Diastolic blood 99 mm[Hg] 99 mm[Hg] MEDGEN (S t pressure [facility] , ) Systolic blood 211 mm[Hg] 211 mm[Hg] MEDGEN ([facility] , ) Body weight 139 lb 139 lb MEDGEN ([facility] , ) Heart rate 87 /min 87 /min MEDGEN ([facility] , ) Respiratory rate 14 /min 14 /min MEDGEN ( [facility] , ) Body temperature 98.7 F 98.7 F MEDGEN ( [facility] , ) Inhaled oxygen 96 % 96 % MEDGEN ([facility], ) Diastolic blood 99 mm[Hg] 99 mm[Hg] MEDGEN (S t pressure [facility] , ) Systolic blood 211 mm[Hg] 211 mm[Hg] MEDGEN ([facility] , ) Body weight 139 lb 139 lb MEDGEN ([facility] , ) Heart rate 87 /min 87 /min MEDGEN ([facility] , ) Respiratory rate 14 /min 14 /min MEDGEN ( [facility] , ) Body temperature 98.7 F 98.7 F MEDGEN ( [facility] , ) Inhaled oxygen 96 % 96 % MEDGEN ([facility], ) Diastolic blood 99 mm[Hg] 99 mm[Hg] MEDGEN (S t pressure [facility] , ) Systolic blood 211 mm[Hg] 211 mm[Hg] MEDGEN ([facility] , ) Body weight 139 lb 139 lb MEDGEN ([facility] , ) Heart rate 87 /min 87 /min MEDGEN ([facility] , ) Respiratory rate 14 /min 14 /min MEDGEN ( [facility] , ) Body temperature 98.7 F 98.7 F MEDGEN ( [facility] , ) Inhaled oxygen 96 % 96 % [facility] Diastolic blood 99 mm[Hg] 99 mm[Hg] MEDGEN (S t pressure [facility]) Systolic blood 211 mm[Hg] 211 mm[Hg] MEDGEN ([facility]) Body weight 139 lb 139 lb MEDGEN ([facility]) Heart rate 87 /min 87 /min MEDGEN ([facility]) Respiratory rate 14 /min 14 /min MEDGEN ( [facility]) Body temperature 98.7 F 98.7 F MEDGEN ( [facility]) Inhaled oxygen 96 % 96 % MEDGEN ([facility]) Diastolic blood 99 mm[Hg] 99 mm[Hg] MEDGEN (S t pressure [facility]) Systolic blood 211 mm[Hg] 211 mm[Hg] MEDGEN ([facility]) Body weight 139 lb 139 lb MEDGEN ([facility]) Heart rate 72 /min 72 /min MEDGEN ([facility]) Respiratory rate 14 /min 14 /min MEDGEN ( [facility]) Body mass index 23.4 kg/m2 23.4 kg/m2 MEDGEN (S t (BMI) [Ratio] [facility], ) Diastolic blood 80 mm[Hg] 80 mm[Hg] MEDGEN (S t pressure [facility]) Systolic blood 130 mm[Hg] 130 mm[Hg] MEDGEN ([facility]) Body weight 132 lb 132 lb MEDGEN ([facility]) Body height 63 in 63 in MEDGEN ([facility]) Heart rate 72 /min 72 /min MEDGEN ([facility]) Respiratory rate 14 /min 14 /min MEDGEN ( [facility]) Body mass index 23.4 kg/m2 23.4 kg/m2 MEDGEN (S t (BMI) [Ratio] [facility] Diastolic blood 80 mm[Hg] 80 mm[Hg] MEDGEN (S t pressure [facility]) Systolic blood 130 mm[Hg] 130 mm[Hg] MEDGEN ([facility]) Body weight 132 lb 132 lb MEDGEN ([facility]) Body height 63 in 63 in MEDGEN ([facility] , ) Heart rate 72 /min 72 /min MEDGEN ([facility] , ) Respiratory rate 14 /min 14 /min MEDGEN ( [facility] , ) Body mass index 23.4 kg/m2 23.4 kg/m2 MEDGEN (S t (BMI) [Ratio] [facility], ) Diastolic blood 80 mm[Hg] 80 mm[Hg] MEDGEN (S t pressure [facility] , ) Systolic blood 130 mm[Hg] 130 mm[Hg] MEDGEN ([facility] , ) Body weight 132 lb 132 lb MEDGEN ([facility]) Body height 63 in 63 in MEDGEN ([facility] , ) Heart rate 72 /min 72 /min MEDGEN ([facility] , ) Respiratory rate 14 /min 14 /min MEDGEN ( [facility] , ) Body mass index 23.4 kg/m2 23.4 kg/m2 MEDGEN (S t (BMI) [Ratio] [facility], ) Diastolic blood 80 mm[Hg] 80 mm[Hg] MEDGEN (S t pressure [facility] , ) Systolic blood 130 mm[Hg] 130 mm[Hg] MEDGEN ([facility] , ) Body weight 132 lb 132 lb MEDGEN ([facility]) Body height 63 in 63 in MEDGEN ([facility] , ) Heart rate 72 /min 72 /min MEDGEN ([facility] , ) Respiratory rate 14 /min 14 /min MEDGEN ( [facility] , ) Body mass index 23.4 kg/m2 23.4 kg/m2 MEDGEN (S t (BMI) [Ratio] [facility], ) Diastolic blood 80 mm[Hg] 80 mm[Hg] MEDGEN (S t pressure [facility] , ) Systolic blood 130 mm[Hg] 130 mm[Hg] MEDGEN ([facility] , ) Body weight 132 lb 132 lb MEDGEN ([facility]) Body height 63 in 63 in MEDGEN ([facility] , ) Heart rate 72 /min 72 /min MEDGEN ([facility]) Respiratory rate 14 /min 14 /min MEDGEN ( [facility] , ) Body mass index 23.4 kg/m2 23.4 kg/m2 MEDGEN (S t (BMI) [Ratio] [facility], ) Diastolic blood 80 mm[Hg] 80 mm[Hg] MEDGEN (S t [facility] , ) Systolic blood 130 mm[Hg] 130 mm[Hg] MEDGEN ([facility] , ) Body weight 132 lb 132 lb MEDGEN ([facility] , ) Body height 63 in 63 in MEDGEN ([facility] , ) Heart rate 72 /min 72 /min MEDGEN ([facility] , ) Respiratory rate 14 /min 14 /min MEDGEN ( [facility] , ) Body mass index 23.4 kg/m2 23.4 kg/m2 MEDGEN (S t (BMI) [Ratio] [facility], ) Diastolic blood 80 mm[Hg] 80 mm[Hg] MEDGEN (S t pressure [facility] , ) Systolic blood 130 mm[Hg] 130 mm[Hg] MEDGEN ([facility] , ) Body weight 132 lb 132 lb MEDGEN ([facility] , ) Body height 63 in 63 in MEDGEN ([facility] , ) Heart rate 72 /min 72 /min MEDGEN ([facility] , ) Respiratory rate 14 /min 14 /min MEDGEN ( [facility] , ) Body mass index 23.4 kg/m2 23.4 kg/m2 MEDGEN (S t (BMI) [Ratio] [facility], ) Diastolic blood 80 mm[Hg] 80 mm[Hg] MEDGEN (S t pressure [facility] , ) Systolic blood 130 mm[Hg] 130 mm[Hg] MEDGEN ([facility] , ) Body weight 132 lb 132 lb MEDGEN ([facility] , ) Body height 63 in 63 in MEDGEN ([facility] , ) Heart rate 72 /min 72 /min MEDGEN ([facility] , ) Respiratory rate 14 /min 14 /min MEDGEN ( [facility] , ) Body mass index 23.4 kg/m2 23.4 kg/m2 MEDGEN (S t (BMI) [Ratio] [facility], ) Diastolic blood 80 mm[Hg] 80 mm[Hg] MEDGEN (S t pressure [facility]) Systolic blood 130 mm[Hg] 130 mm[Hg] MEDGEN ([facility] , ) Body weight 132 lb 132 lb MEDGEN ([facility]) Body height 63 in 63 in MEDGEN ([facility]) Body weight 132 lb 132 lb MEDGEN ([facility]) Body height 63 in 63 in MEDGEN ([facility]) Heart rate 72 /min 72 /min MEDGEN ([facility]) Respiratory rate 14 /min 14 /min MEDGEN ( [facility]) Body mass index 23.4 kg/m2 23.4 kg/m2 MEDGEN (S t (BMI) [Ratio] [facility], ) Diastolic blood 80 mm[Hg] 80 mm[Hg] MEDGEN (S t pressure [facility]) Systolic blood 130 mm[Hg] 130 mm[Hg] MEDGEN ([facility] , ) Heart rate 72 /min 72 /min MEDGEN ([facility]) Respiratory rate 14 /min 14 /min MEDGEN ( [facility]) Body mass index 23.4 kg/m2 23.4 kg/m2 MEDGEN (S t (BMI) [Ratio] [facility], ) Diastolic blood 80 mm[Hg] 80 mm[Hg] MEDGEN (S t pressure [facility]) Systolic blood 130 mm[Hg] 130 mm[Hg] MEDGEN ([facility] , ) Body weight 132 lb 132 lb MEDGEN ([facility]) Body height 63 in 63 in MEDGEN ([facility]) Heart rate 72 /min 72 /min MEDGEN ([facility]) Respiratory rate 14 /min 14 /min MEDGEN ( [facility]) Body mass index 23.4 kg/m2 23.4 kg/m2 MEDGEN (S t (BMI) [Ratio] [facility], ) Diastolic blood 80 mm[Hg] 80 mm[Hg] MEDGEN (S t pressure [facility]) Systolic blood 130 mm[Hg] 130 mm[Hg] MEDGEN ([facility] , ) Body weight 132 lb 132 lb MEDGEN ([facility]) Body height 63 in 63 in MEDGEN ([facility]) Heart rate 69 /min 69 /min MEDGEN ([facility]) Inhaled oxygen 98 % 98 % MEDGEN ([facility], ) Body mass index 23 kg/m2 23 kg/m2 MEDGEN (S t (BMI) [Ratio] [facility], ) Diastolic blood 110 mm[Hg] 110 mm[Hg] MEDGEN (S t pressure [facility] , ) Systolic blood 240 mm[Hg] 240 mm[Hg] MEDGEN ([facility] , ) Body weight 130 lb 130 lb MEDGEN ([facility]) Body height 63 in 63 in MEDGEN ([facility]) Heart rate 69 /min 69 /min MEDGEN ([facility]) Inhaled oxygen 98 % 98 % MEDGEN ([facility], ) Body mass index 23 kg/m2 23 kg/m2 MEDGEN (S t (BMI) [Ratio] [facility], ) Diastolic blood 110 mm[Hg] 110 mm[Hg] MEDGEN (S t pressure [facility] , ) Systolic blood 240 mm[Hg] 240 mm[Hg] MEDGEN ([facility]) Body weight 130 lb 130 lb MEDGEN ([facility]) Body height 63 in 63 in MEDGEN ([facility]) Heart rate 69 /min 69 /min MEDGEN ([facility]) Inhaled oxygen 98 % 98 % MEDGEN ([facility], ) Body mass index 23 kg/m2 23 kg/m2 MEDGEN (S t (BMI) [Ratio] [facility], ) Diastolic blood 110 mm[Hg] 110 mm[Hg] MEDGEN (S t pressure [facility] , ) Systolic blood 240 mm[Hg] 240 mm[Hg] MEDGEN ([facility] , ) Body weight 130 lb 130 lb MEDGEN ([facility]) Body height 63 in 63 in MEDGEN ([facility]) Heart rate 69 /min 69 /min MEDGEN ([facility]) Inhaled oxygen 98 % 98 % MEDGEN ([facility], ) Body mass index 23 kg/m2 23 kg/m2 MEDGEN (S t (BMI) [Ratio] [facility], ) Diastolic blood 110 mm[Hg] 110 mm[Hg] MEDGEN (S t pressure [facility]) Systolic blood 240 mm[Hg] 240 mm[Hg] MEDGEN ([facility]) Body weight 130 lb 130 lb MEDGEN ([facility]) Body height 63 in 63 in MEDGEN ([facility]) Body mass index 23 kg/m2 23 kg/m2 MEDGEN (S t (BMI) [Ratio] [facility], ) Diastolic blood 110 mm[Hg] 110 mm[Hg] MEDGEN (S t [facility]) Systolic blood 240 mm[Hg] 240 mm[Hg] MEDGEN ([facility]) Body weight 130 lb 130 lb MEDGEN ([facility]) Body height 63 in 63 in MEDGEN ([facility]) Heart rate 69 /min 69 /min MEDGEN ([facility]) Inhaled oxygen 98 % 98 % MEDGEN ([facility], ) Heart rate 69 /min 69 /min MEDGEN ([facility]) Inhaled oxygen 98 % 98 % MEDGEN ([facility], ) Body mass index 23 kg/m2 23 kg/m2 MEDGEN (S t (BMI) [Ratio] [facility], ) Diastolic blood 110 mm[Hg] 110 mm[Hg] MEDGEN (S t [facility]) Systolic blood 240 mm[Hg] 240 mm[Hg] MEDGEN ([facility]) Body weight 130 lb 130 lb MEDGEN ([facility]) Body height 63 in 63 in MEDGEN ([facility]) Heart rate 69 /min 69 /min MEDGEN ([facility]) Inhaled oxygen 98 % 98 % MEDGEN ([facility], ) Body mass index 23 kg/m2 23 kg/m2 MEDGEN (S t (BMI) [Ratio] [facility], ) Diastolic blood 110 mm[Hg] 110 mm[Hg] MEDGEN (S t pressure [facility] , ) Systolic blood 240 mm[Hg] 240 mm[Hg] MEDGEN ([facility] , ) Body weight 130 lb 130 lb MEDGEN ([facility]) Body height 63 in 63 in MEDGEN ([facility]) Heart rate 69 /min 69 /min MEDGEN ([facility]) Inhaled oxygen 98 % 98 % MEDGEN ([facility], ) Body mass index 23 kg/m2 23 kg/m2 MEDGEN (S t (BMI) [Ratio] [facility], ) Diastolic blood 110 mm[Hg] 110 mm[Hg] MEDGEN (S t pressure [facility] , ) Systolic blood 240 mm[Hg] 240 mm[Hg] MEDGEN ([facility] , ) Body weight 130 lb 130 lb MEDGEN ([facility]) Body height 63 in 63 in MEDGEN ([facility]) Heart rate 69 /min 69 /min MEDGEN ([facility]) Inhaled oxygen 98 % 98 % MEDGEN ([facility], ) Body mass index 23 kg/m2 23 kg/m2 MEDGEN (S t (BMI) [Ratio] [facility], ) Diastolic blood 110 mm[Hg] 110 mm[Hg] MEDGEN (S t pressure [facility] , ) Systolic blood 240 mm[Hg] 240 mm[Hg] MEDGEN ([facility] , ) Body weight 130 lb 130 lb MEDGEN ([facility]) Body height 63 in 63 in MEDGEN ([facility]) Heart rate 69 /min 69 /min MEDGEN ([facility]) Inhaled oxygen 98 % 98 % MEDGEN ([facility], ) Body mass index 23 kg/m2 23 kg/m2 MEDGEN (S t (BMI) [Ratio] [facility], ) Diastolic blood 110 mm[Hg] 110 mm[Hg] MEDGEN (S t pressure [facility]) Systolic blood 240 mm[Hg] 240 mm[Hg] MEDGEN ([facility]) Body weight 130 lb 130 lb MEDGEN ([facility]) Body height 63 in 63 in MEDGEN ([facility]) Heart rate 69 /min 69 /min MEDGEN ([facility]) Inhaled oxygen 98 % 98 % MEDGEN ([facility]) Body mass index 23 kg/m2 23 kg/m2 MEDGEN (S t (BMI) [Ratio] [facility], ) Diastolic blood 110 mm[Hg] 110 mm[Hg] MEDGEN (S t pressure [facility]) Systolic blood 240 mm[Hg] 240 mm[Hg] MEDGEN ([facility]) Body weight 130 lb 130 lb MEDGEN ([facility]) Body height 63 in 63 in MEDGEN ([facility]) Heart rate 69 /min 69 /min MEDGEN ([facility]) Inhaled oxygen 98 % 98 % MEDGEN ([facility]) Body mass index 23 kg/m2 23 kg/m2 MEDGEN (S t (BMI) [Ratio] [facility], ) Diastolic blood 110 mm[Hg] 110 mm[Hg] MEDGEN (S t pressure [facility]) Systolic blood 240 mm[Hg] 240 mm[Hg] MEDGEN ([facility]) Body weight 130 lb 130 lb MEDGEN ([facility]) Body height 63 in 63 in MEDGEN ([facility]) Heart rate 68 /min 68 /min MEDGEN ([facility]) Body temperature 98.1 F 98.1 F MEDGEN ( [facility]) Inhaled oxygen 99 % 99 % MEDGEN ([facility]) Body mass index 22.7 kg/m2 22.7 kg/m2 MEDGEN (S t (BMI) [Ratio] [facility], ) Diastolic blood 90 mm[Hg] 90 mm[Hg] MEDGEN (S t pressure [facility]) Systolic blood 192 mm[Hg] 192 mm[Hg] MEDGEN ([facility]) Body weight 132 lb 132 lb MEDGEN ([facility]) Body height 64 in 64 in MEDGEN ([facility]) Heart rate 68 /min 68 /min MEDGEN ([facility]) Body temperature 98.1 F 98.1 F MEDGEN ( [facility]) Inhaled oxygen 99 % 99 % MEDGEN ([facility]) Body mass index 22.7 kg/m2 22.7 kg/m2 MEDGEN (S t (BMI) [Ratio] [facility], ) Diastolic blood 90 mm[Hg] 90 mm[Hg] MEDGEN ([facility]) Systolic blood 192 mm[Hg] 192 mm[Hg] MEDGEN ([facility]) Body weight 132 lb 132 lb MEDGEN ([facility]) Body height 64 in 64 in MEDGEN ([facility]) Heart rate 68 /min 68 /min MEDGEN ([facility]) Body temperature 98.1 F 98.1 F MEDGEN ( [facility]) Inhaled oxygen 99 % 99 % MEDGEN ([facility]) Body mass index 22.7 kg/m2 22.7 kg/m2 MEDGEN (S t (BMI) [Ratio] [facility], ) Diastolic blood 90 mm[Hg] 90 mm[Hg] MEDGEN (S t pressure [facility]) Systolic blood 192 mm[Hg] 192 mm[Hg] MEDGEN ([facility]) Body weight 132 lb 132 lb MEDGEN ([facility]) Body height 64 in 64 in MEDGEN ([facility]) Heart rate 68 /min 68 /min MEDGEN ([facility]) Body temperature 98.1 F 98.1 F MEDGEN ( [facility]) Inhaled oxygen 99 % 99 % MEDGEN ([facility]) Body mass index 22.7 kg/m2 22.7 kg/m2 MEDGEN (S t (BMI) [Ratio] [facility] Diastolic blood 90 mm[Hg] 90 mm[Hg] MEDGEN (S t pressure [facility]) Systolic blood 192 mm[Hg] 192 mm[Hg] MEDGEN ([facility]) Body weight 132 lb 132 lb MEDGEN ([facility]) Body height 64 in 64 in MEDGEN ([facility]) Heart rate 68 /min 68 /min MEDGEN ([facility]) Body temperature 98.1 F 98.1 F MEDGEN ( [facility]) Inhaled oxygen 99 % 99 % MEDGEN ([facility]) Body mass index 22.7 kg/m2 22.7 kg/m2 MEDGEN (S t (BMI) [Ratio] [facility], ) Diastolic blood 90 mm[Hg] 90 mm[Hg] MEDGEN (S t pressure [facility]) Systolic blood 192 mm[Hg] 192 mm[Hg] MEDGEN ([facility]) Body weight 132 lb 132 lb MEDGEN ([facility]) Body height 64 in 64 in MEDGEN ([facility]) Heart rate 68 /min 68 /min MEDGEN ([facility]) Body temperature 98.1 F 98.1 F MEDGEN ( [facility]) Inhaled oxygen 99 % 99 % MEDGEN ([facility]) Body mass index 22.7 kg/m2 22.7 kg/m2 MEDGEN (S t (BMI) [Ratio] [facility], ) Diastolic blood 90 mm[Hg] 90 mm[Hg] MEDGEN (S t pressure [facility]) Systolic blood 192 mm[Hg] 192 mm[Hg] MEDGEN ([facility]) Body weight 132 lb 132 lb MEDGEN ([facility]) Body height 64 in 64 in MEDGEN ([facility]) Heart rate 68 /min 68 /min MEDGEN ([facility]) Body temperature 98.1 F 98.1 F MEDGEN ( [facility]) Inhaled oxygen 99 % 99 % MEDGEN ([facility]) Body mass index 22.7 kg/m2 22.7 kg/m2 MEDGEN (S t (BMI) [Ratio] [facility], ) Diastolic blood 90 mm[Hg] 90 mm[Hg] MEDGEN (S t pressure [facility]) Systolic blood 192 mm[Hg] 192 mm[Hg] MEDGEN ([facility]) Body weight 132 lb 132 lb MEDGEN ([facility]) Body height 64 in 64 in MEDGEN ([facility]) Body temperature 98.1 F 98.1 F MEDGEN ( [facility]) Inhaled oxygen 99 % 99 % MEDGEN ([facility], ) Body mass index 22.7 kg/m2 22.7 kg/m2 MEDGEN (S t (BMI) [Ratio] [facility], ) Diastolic blood 90 mm[Hg] 90 mm[Hg] MEDGEN (S t pressure [facility] , ) Systolic blood 192 mm[Hg] 192 mm[Hg] MEDGEN ([facility]) Body weight 132 lb 132 lb MEDGEN ([facility]) Body height 64 in 64 in MEDGEN ([facility]) Heart rate 68 /min 68 /min MEDGEN ([facility]) Heart rate 68 /min 68 /min MEDGEN ([facility]) Body temperature 98.1 F 98.1 F MEDGEN ( [facility]) Inhaled oxygen 99 % 99 % MEDGEN ([facility], ) Body mass index 22.7 kg/m2 22.7 kg/m2 MEDGEN (S t (BMI) [Ratio] [facility], ) Diastolic blood 90 mm[Hg] 90 mm[Hg] MEDGEN (S t pressure [facility]) Systolic blood 192 mm[Hg] 192 mm[Hg] MEDGEN ([facility]) Body weight 132 lb 132 lb MEDGEN ([facility]) Body height 64 in 64 in MEDGEN ([facility]) Heart rate 68 /min 68 /min MEDGEN ([facility]) Body temperature 98.1 F 98.1 F MEDGEN ( [facility]) Inhaled oxygen 99 % 99 % MEDGEN ([facility], ) Body mass index 22.7 kg/m2 22.7 kg/m2 MEDGEN (S t (BMI) [Ratio] [facility], ) Diastolic blood 90 mm[Hg] 90 mm[Hg] MEDGEN (S t pressure [facility]) Systolic blood 192 mm[Hg] 192 mm[Hg] MEDGEN ([facility]) Body weight 132 lb 132 lb MEDGEN ([facility]) Body height 64 in 64 in MEDGEN ([facility]) Heart rate 68 /min 68 /min MEDGEN ([facility]) Body temperature 98.1 F 98.1 F MEDGEN ( [facility]) Inhaled oxygen 99 % 99 % MEDGEN ([facility], ) Body mass index 22.7 kg/m2 22.7 kg/m2 MEDGEN (S t (BMI) [Ratio] [facility], ) Diastolic blood 90 mm[Hg] 90 mm[Hg] MEDGEN (S t pressure [facility]) Systolic blood 192 mm[Hg] 192 mm[Hg] MEDGEN ([facility]) Body weight 132 lb 132 lb MEDGEN ([facility]) Body height 64 in 64 in MEDGEN ([facility]) Heart rate 68 /min 68 /min MEDGEN ([facility]) Body temperature 98.1 F 98.1 F MEDGEN ( [facility]) Inhaled oxygen 99 % 99 % MEDGEN ([facility], ) Body mass index 22.7 kg/m2 22.7 kg/m2 MEDGEN (S t (BMI) [Ratio] [facility], ) Diastolic blood 90 mm[Hg] 90 mm[Hg] MEDGEN (S t pressure [facility]) Systolic blood 192 mm[Hg] 192 mm[Hg] MEDGEN ([facility]) Body weight 132 lb 132 lb MEDGEN ([facility]) Body height 64 in 64 in MEDGEN ([facility])
[2020-07-13] MEDS ORDERED: SODIUM CHLORIDE 0.45% 500 ML IV ONE (09:00)
[2020-07-13] MEDS ORDERED: CYCLOPHOSPHAMIDE PO ONE (10:00)
[2020-07-13] MEDS ORDERED: DEXAMETHASONE SODIUM PHOSPHATE 20 MG, ONDANSETRON INJECTION 8 MG in SODIUM CHLORIDE 100 ML IVPB ONE (10:00)
[2020-07-13] MEDS ORDERED: DENOSUMAB 120 MG/1.7 ML VIAL SQ ONE (10:00)
[2020-07-13] MEDS ORDERED: BORTEZOMIB (VELCADE) 2.5 MG/ML SUB-Q INJECTION SQ ONE (10:30)
[2020-07-13 11:55] LABS: BASO % 0.7 % (0-2.0); EOS % 4.7 % (0-4.5); HEMATOCRIT 30.2 % (35.4-49); HEMOGLOBIN 9.9 GM/dL (11.7-16.9); LYMPH % 19.5 % (8-40); MCHC 32.9 g/dl (32.0-35.9); MEAN CELL VOLUME 100.5 fl (80-96); MEAN PLT VOLUME 7.8 fl (7.5-11.1); MONO % 17.1 % (3.8-10.2); PLATELET COUNT 137 K/MM3 (134-434); RBC 3.01 M/mm3 (4.00-5.60); RDW 19.2 % (11.9-15.9); WHITE BLOOD COUNT 8.4 K/mm3 (4.0-10.0)
[2020-07-13 12:31] LABS: ALBUMIN 3.1 g/dl (3.4-5.0); BILIRUBIN,DIRECT 0.1 mg/dL (0.0-0.2); BILIRUBIN,TOTAL 0.4 mg/dL (0.2-1); BLOOD UREA NITROGEN 28.5 mg/dL (7-18); CALCIUM 8.1 mg/dL (8.5-10.1); CREATININE 3.6 mg/dL (0.55-1.3); MAGNESIUM 2.1 mg/dL (1.8-2.4); POTASSIUM 4.3 mmol/L (3.5-5.1); TOT PROT 8.4 g/dl (6.4-8.2); URIC ACID 6.5 mg/dL (2.6-7.2)
[2020-07-13] MEDS ORDERED: amLODIPine BESYLATE 5 MG TABLET (FP) PO ONE (13:00)
[2020-07-13 15:28] VITALS: TEMP 98.3
[2020-07-13 15:29] VITALS: BP 154/86; PULSE 61
== END 2020-07-13 15:08 | disposition home or self-care (01) ==
LOC: JONCCHEMO 06:48
PROVIDERS: ATTEND Internal Medicine Hematology & Oncology
PROC: 3E01305 Introduction of Other Antineoplastic into Subcutaneous Tissue, Percutaneous Approach (ICD-10-PCS; principal; 2020-07-13)
PROC: 3E013GC Introduction of Other Therapeutic Substance into Subcutaneous Tissue, Percutaneous Approach (ICD-10-PCS; 2020-07-13)
PROC: 3E033GC Introduction of Other Therapeutic Substance into Peripheral Vein, Percutaneous Approach (ICD-10-PCS; 2020-07-13)
PROC: 3E033GC Introduction of Other Therapeutic Substance into Peripheral Vein, Percutaneous Approach (ICD-10-PCS; 2020-07-13)
DX: Z51.11 Encounter for antineoplastic chemotherapy (principal); C90.00 Multiple myeloma not having achieved remission; D47.2 Monoclonal gammopathy
CPT/HCPCS: 36415; 80048; 80076; 83615; 83735; 84550; 85025; 96361; 96365; 96372; 96401; J0897; J2405; J9041

== ENCOUNTER 2020-07-20 07:17 | Day surgery (SDC) | payer OTHER ==
--- OUTSIDE RECORDS SUMMARY | 2020-07-20 07:46 | XMS ---
:1945 Author Organization [facility] Care Team Providers Name Role Phone Enoch, Russell Unavailable Enoch, Russell Unavailable Enoch, Russell Unavailable Neoch, Russell Unavailable Enoch, Russell Unavailable Brayden HINOJOSA [...] is protected by Article 27-F of the [facility] Public Health law. If you continue you may haveaccess to information: Regarding HIV / AIDS; Provided by facilities licensed or operated by the [facility] Office of Mental Health; or Provided by the [facility] Office for People With Developmental Disabilities. If such information is present, then the following [facility] mandated warning applies: This information has been [...] law may result in a fine or mcc sentence or both. A general authorization for [...] Outpatient 05/02/2020 10:37:00 AM EDT MULT MYEL [facility] MULT MYELOMA Attender: MD Jose Enrique [...] 03/24/2020 12:00:00 AM E DT MED[facility] ([facility], ) Office Attender: Russell Kendall 03/24/2020 12:00:00 AM E DT MEDGEN ([facility], ) Office Attender: Russell Kendall 03/24/2020 12:00:00 AM E DT MEDGEN ([facility], ) Office Attender: Russell Kendall 03/24/2020 12:00:00 AM E DT MEDGEN ([facility], ) Office Attender: Russell Kendall 03/24/2020 12:00:00 AM E DT MEDGEN ([facility], ) Office Attender: Russell Kendall 03/24/2020 12:00:00 AM E DT MEDGEN ([facility], ) Office Attender: MD Jose Enrique [...] Medical, PC) Office Outpatient 11/02/2019 04:18:00 PM [facility] Outpatient 11/02/2019 12:00:00 AM [facility] 10/21/2019 04:12:00 PM [facility] Patient admitted. Immunizations Vaccine Date Status Description [...] Brand Start Product Dose Route Administrative Pharmacy [facility] Indications Reaction Description Data Name Date Form Instructions Instructions Source(s) Famotidine FAMOTI 06/19/ TABLET 30 complet FAMOT IDINE MEDGEN (St 20 MG Oral DINE:3 2019 ed Juan C's Tablet 51286 12:00: Medical, FAMOTIDINE: 00 AM PC) [id number] EDT 24 HR NIFEDI 06/14/ TABLET, 90 complet NIFEDIPIN E MEDGEN (St Nifedipine PINE:1 2019 EXTENDED ed Vincent n's 60 MG 14704 12:00: RELEASE Medical, Extended 00 AM PC) Release EDT Oral Tablet NIFEDIPINE: [id number] Labetalol LABETA 06/14/ TABLET 60 complet LABETA LOL MEDGEN (St hydrochlori LOL:89 2019 ed Juan C's de 300 MG 6766 12:00: Medical, Oral Tablet 00 AM PC) LABETALOL:8 EDT 19676 Furosemide FUROSE 06/14/ TABLET 30 complet FUROS EMIDE MEDGEN (St 20 MG Oral MIDE:3 2019 ed Juan C's Tablet 60326 12:00: Medical, FUROSEMIDE: 00 AM PC) [id number] EDT Labetalol LABETA 06/14/ TABLET 60 complet LABETA LOL MEDGEN (St hydrochlori LOL:89 2019 ed Juan C's de 300 MG 6766 12:00: Medical, Oral Tablet 00 AM PC) LABETALOL:8 EDT 34757 Furosemide FUROSE 06/14/ TABLET 30 complet FUROS EMIDE MEDGEN (St 20 MG Oral MIDE:3 2019 ed Juan C's Tablet 09138 12:00: Medical, FUROSEMIDE: 00 AM PC) 999056 EDT 24 HR NIFEDI 06/14/ TABLET, 90 complet NIFEDIPIN E MEDGEN (St Nifedipine PINE:1 2019 EXTENDED ed Vincent n's 60 MG 53948 12:00: RELEASE Medical, Extended 00 AM PC) Release EDT Oral Tablet NIFEDIPINE: 19791209 Oxybutynin OXYBUT 06/13/ TABLET 30 complet OXYBU TYNIN MEDGEN (St chloride 5 YNIN:8 2019 ed Juan C's MG Oral 11333 12:00: Medical, Tablet 00 AM PC) OXYBUTYNIN: EDT 221028 Oxybutynin OXYBUT 06/13/ TABLET 30 complet OXYBU TYNIN MEDGEN (St chloride 5 YNIN:8 2019 ed Juan C's MG Oral 68651 12:00: Medical, Tablet 00 AM PC) OXYBUTYNIN: EDT 696527 Docusate DOCUSA 05/31/ CAPSULE 270 complet DOCUSA TE MEDGEN (St Sodium 100 TE:111 2019 ed Juan C's MG Oral 5005 12:00: Medical, Capsule 00 AM PC) DOCUSATE:11 EDT 90449 Hydroxyzine HYDROX complet HYDROX YZINE MEDGEN (St Hydrochlori YZINE: 2019 ed Juan C's de 10 MG 987913 12:00: Medical , Oral Tablet 00 AM PC) HYDROXYZINE EDT :864182 AQUAPHOR:20 05/31/ OINTMENT 1 complet AQUA PHOR MEDGEN (St 66249 2019 ed Juan C's 12:00: Medical, 00 AM PC) EDT AQUAPHOR:20 05/31/ OINTMENT 1 complet AQUA PHOR MEDGEN (St 76718 2019 ed Juan C's 12:00: Medical, 00 AM PC) EDT Docusate DOCUSA 05/31/ CAPSULE 270 complet DOCUSA TE MEDGEN (St Sodium 100 TE:111 2019 ed Juan C's MG Oral 5005 12:00: Medical, Capsule 00 AM PC) DOCUSATE:11 EDT 33020 Docusate DOCUSA 05/31/ CAPSULE 270 complet DOCUSA TE MEDGEN (St Sodium 100 TE:111 2019 ed Juan C's MG Oral 5005 12:00: Medical, Capsule 00 AM PC) DOCUSATE:11 EDT 50850 Hydroxyzine HYDROX complet HYDROX YZINE MEDGEN (St Hydrochlori YZINE: 2019 ed Juan C's de 10 MG 650049 12:00: Medical , Oral Tablet 00 AM PC) HYDROXYZINE EDT :256542 AQUAPHOR:20 05/31/ OINTMENT 1 complet AQUA PHOR MEDGEN (St 96510 2019 ed Juan C's 12:00: Medical, 00 AM PC) EDT Hydroxyzine HYDROX complet HYDROX YZINE MEDGEN (St Hydrochlori YZINE: 2019 ed Juan C's de 10 MG 252615 12:00: Medical , Oral Tablet 00 AM PC) HYDROXYZINE EDT :651677 Oxybutynin OXYBUT 05/10/ TABLET 30 complet OXYBU TYNIN MEDGEN (St chloride 5 YNIN:8 2019 ed Juan C's MG Oral 33247 12:00: Medical, Tablet 00 AM PC) OXYBUTYNIN: EDT 416616 24 HR NIFEDI 08/05/ TABLET, 90 complet NIFEDIPIN E MEDGEN (St Nifedipine PINE:1 2019 EXTENDED ed Vincent n's 30 MG 53654 12:00: RELEASE Medical, Extended 00 AM PC) Release EDT Oral Tablet NIFEDIPINE: 19791208 24 HR NIFEDI 08/05/ TABLET, 90 complet NIFEDIPIN E MEDGEN (St Nifedipine PINE:1 2019 EXTENDED ed Vincent n's 30 MG 91606 12:00: RELEASE Medical, Extended 00 AM PC) Release EDT Oral Tablet NIFEDIPINE: 19791208 Oxybutynin OXYBUT 08/05/ TABLET 30 complet OXYBU TYNIN MEDGEN (St chloride 5 YNIN:8 2019 ed Juan C's MG Oral 78440 12:00: Medical, Tablet 00 AM PC) OXYBUTYNIN: EDT 074877 Oxybutynin OXYBUT 08/05/ TABLET 30 complet OXYBU TYNIN MEDGEN (St chloride 5 YNIN:8 2019 ed Juan C's MG Oral 71194 12:00: Medical, Tablet 00 AM PC) OXYBUTYNIN: EDT 857112 24 HR NIFEDI 08/05/ TABLET, 90 complet NIFEDIPIN E MEDGEN (St Nifedipine PINE:1 2019 EXTENDED ed Vincent n's 30 MG 58602 12:00: RELEASE Medical, Extended 00 AM PC) Release EDT Oral Tablet NIFEDIPINE: 19791208 RASTAFARIAN complet RASTAFARIAN MEDGEN (St THERMOMETER 2020 ed THERMOMETER J ohn's MISCELLANEO 12:00: MISCELLANEO U Medical, US: 00 AM S PC) EDT RASTAFARIAN complet RASTAFARIAN MEDGEN (St THERMOMETER 2020 ed THERMOMETER J ohn's MISCELLANEO 12:00: MISCELLANEO U Medical, US: 00 AM S PC) EDT RASTAFARIAN complet RASTAFARIAN MEDGEN (St THERMOMETER 2020 ed THERMOMETER J ohn's MISCELLANEO 12:00: MISCELLANEO U Medical, US: 00 AM S PC) EDT RASTAFARIAN complet RASTAFARIAN MEDGEN (St THERMOMETER 2020 ed THERMOMETER J ohn's MISCELLANEO 12:00: MISCELLANEO U Medical, US: 00 AM S PC) EDT RASTAFARIAN complet RASTAFARIAN MEDGEN (St THERMOMETER 2019 ed THERMOMETER J [...] Oral APINE: 2019 ed Juan C's Tablet 469498 12:00: Medical, MIRTAZAPINE 00 AM PC) :222091 EDT Labetalol LABETA 05/05/ TABLET 60 complet LABETA LOL MEDGEN (St hydrochlori LOL:89 2019 ed Juan C's de 100 MG 6758 12:00: Medical, Oral Tablet 00 AM PC) LABETALOL:8 EDT 74118 Hydralazine HYDRAL 05/05/ TABLET 90 complet HYDR ALAZINE MEDGEN (St Hydrochlori AZINE: 2019 ed Juan C's de 25 MG 236631 12:00: Medical , Oral Tablet 00 AM PC) HYDRALAZINE EDT :618439 Furosemide FUROSE 05/05/ TABLET 30 complet FUROS EMIDE MEDGEN (St 20 MG Oral MIDE:3 2019 ed Juan C's Tablet 85264 12:00: Medical, FUROSEMIDE: 00 AM PC) 729135 EDT BLOOD complet BLOOD MEDGEN ( St [...] 2019 ed Juan C's de 25 MG 741165 12:00: Medical , Oral Tablet 00 AM PC) HYDRALAZINE EDT :736862 Furosemide FUROSE 05/05/ TABLET 30 complet FUROS EMIDE MEDGEN (St 20 MG Oral MIDE:3 2019 ed Juan C's Tablet 72295 12:00: Medical, FUROSEMIDE: 00 AM PC) 248126 EDT BLOOD complet BLOOD MEDGEN ( PRESSURE 2019 ed PRESSURE KIT Vincent n's KIT: 12:00: Medical, 00 AM PC) EDT Hydralazine HYDRAL 05/05/ TABLET 90 complet HYDR ALAZINE MEDGEN (St Hydrochlori AZINE: 2019 ed Juan C's de 25 MG 705350 12:00: Medical , Oral Tablet 00 AM PC) HYDRALAZINE EDT :091099 Sodium SODIUM 05/05/ TABLET 360 complet SODIUM [...] Oral APINE: 2019 ed Juan C's Tablet 019730 12:00: Medical, MIRTAZAPINE 00 AM PC) :035947 EDT BLOOD complet BLOOD MEDGEN ( PRESSURE 2019 ed PRESSURE KIT Vincent n's KIT: 12:00: Medical, 00 AM PC) EDT Mirtazapine MIRTAZ 05/05/ TABLET 30 complet MIRT AZAPINE MEDGEN (St 7.5 MG Oral APINE: 2019 ed Juan C's Tablet 369803 12:00: Medical, MIRTAZAPINE 00 AM PC) :423594 EDT Sodium SODIUM 05/05/ TABLET 360 complet SODIUM ME DGEN (St Bicarbonate BICARB 2019 ed BICARBONATE Juan C's 650 MG Oral ZIA: 12:00: Medi nils, Tablet [id number] 00 AM PC) SODIUM EDT BICARBONATE :162681 Sodium SODIUM 05/05/ TABLET 360 complet SODIUM ME DGEN (St Bicarbonate BICARB 2019 ed BICARBONATE Juan C's 650 MG Oral ZIA: 12:00: Medi nils, Tablet [id number] 00 AM PC) SODIUM EDT BICARBONATE :[id number] Labetalol LABETA 05/05/ TABLET 60 complet LABETA LOL MEDGEN (St hydrochlori LOL:89 2019 ed Juan C's de 100 MG 6758 12:00: Medical, Oral Tablet 00 AM PC) LABETALOL:8 EDT 32989 Mirtazapine MIRTAZ 05/05/ TABLET 30 complet MIRT AZAPINE MEDGEN (St 7.5 MG Oral APINE: 2019 ed Juan C's Tablet 845088 12:00: Medical, MIRTAZAPINE 00 AM PC) :459107 EDT Hydralazine HYDRAL 05/05/ TABLET 90 complet HYDR ALAZINE MEDGEN (St Hydrochlori AZINE: 2019 ed Juan C's de 25 MG 438625 12:00: Medical , Oral Tablet 00 AM PC) HYDRALAZINE EDT :433064 BLOOD complet BLOOD MEDGEN ( St PRESSURE 2020 ed PRESSURE KIT Vincent n's KIT: 12:00: Medical, 00 AM PC) EDT Labetalol LABETA 05/05/ TABLET 60 complet LABETA LOL MEDGEN (St hydrochlori LOL:89 2019 ed Juan C's de 100 MG 6758 12:00: Medical, Oral Tablet 00 AM PC) LABETALOL:8 EDT 98513 Hydralazine HYDRAL 05/05/ TABLET 90 complet HYDR ALAZINE MEDGEN (St Hydrochlori AZINE: 2019 ed Juan C's de 25 MG 652186 12:00: Medical , Oral Tablet 00 AM PC) HYDRALAZINE EDT :634822 Mirtazapine MIRTAZ 05/05/ TABLET 30 complet MIRT AZAPINE MEDGEN (St 7.5 MG Oral APINE: 2019 ed Juan C's Tablet 296268 12:00: Medical, MIRTAZAPINE 00 AM PC) :683304 EDT Furosemide FUROSE 05/05/ TABLET 30 complet FUROS EMIDE MEDGEN (St 20 MG Oral MIDE:3 2019 ed Juan C's Tablet 52167 12:00: Medical, FUROSEMIDE: 00 AM PC) 249399 EDT Allopurinol ALLOPU 05/05/ TABLET 30 complet [...] AM PC) Tablet 8907 EDT CALCIUM CARBONATE:3 31111 Calcium CALCIU 05/03/ TABLET, 360 complet CALCIUM MEDGEN (St Carbonate 2019 CHEWABLE ed CARBONATE J ohn's 500 MG CARBON 12:00: Medical, Chewable ATE:30 00 AM PC) Tablet 8907 EDT CALCIUM CARBONATE:3 41658 Calcium CALCIU 05/03/ TABLET, 360 complet CALCIUM MEDGEN (St Carbonate 2019 CHEWABLE ed CARBONATE J ohn's 500 MG CARBON 12:00: Medical, Chewable ATE:30 00 AM PC) Tablet 8907 EDT CALCIUM CARBONATE:3 06980 Calcium CALCIU 05/03/ TABLET, 360 complet CALCIUM MEDGEN (St Carbonate 2019 CHEWABLE ed CARBONATE J ohn's 500 MG CARBON 12:00: Medical, Chewable ATE:30 00 AM PC) Tablet 8907 EDT CALCIUM CARBONATE:3 54411 Calcium CALCIU 05/03/ TABLET, 360 complet CALCIUM MEDGEN (St Carbonate 2019 CHEWABLE ed CARBONATE J ohn's 500 MG CARBON 12:00: Medical, Chewable ATE:30 00 AM PC) Tablet 8907 EDT CALCIUM CARBONATE:3 32748 Calcium CALCIU 05/03/ TABLET, 360 complet CALCIUM MEDGEN (St Carbonate 2019 CHEWABLE ed CARBONATE J ohn's 500 MG CARBON 12:00: Medical, Chewable ATE:30 00 AM PC) Tablet 8907 EDT CALCIUM CARBONATE:3 55996 Famotidine FAMOTI 04/26/ TABLET 90 complet FAMOT IDINE MEDGEN (St 40 MG Oral DINE:2 2019 ed [place] Tablet 60067 12:00: Medical, FAMOTIDINE: 00 AM PC) 786010 EDT Famotidine FAMOTI 04/26/ TABLET 90 complet FAMOT IDINE MEDGEN (St 40 MG Oral DINE:2 2019 ed Vicente Tablet 91115 12:00: Medical, FAMOTIDINE: 00 AM PC) 845507 EDT Sodium SODIUM 04/19/ TABLET 360 complet SODIUM ME DGEN (St Bicarbonate BICARB 2019 ed BICARBONATE [place] 650 MG Oral ZIA: 12:00: Medi nils, Tablet 934690 00 AM PC) SODIUM EDT BICARBONATE :[id number] Labetalol LABETA 04/19/ TABLET 30 complet LABETA LOL MEDGEN (St hydrochlori LOL:89 2019 ed [place] de 100 MG 6758 12:00: Medical, Oral Tablet 00 AM PC) LABETALOL:8 EDT 19668 Allopurinol ALLOPU 04/19/ complet ALLOPU RINOL MEDGEN (St ALLOPURINOL RINOL: 2019 ed Juan C's :519 519 12:00: Medical, 00 AM PC) EDT Furosemide FUROSE 04/19/ complet FUROSEM REHAN MEDGEN (St 40 MG Oral MIDE:3 2019 ed [place] Tablet 79769 12:00: Medical, FUROSEMIDE: 00 AM PC) 966389 EDT Allopurinol ALLOPU 15/ complet ALLOPU RINOL MEDGEN (St ALLOPURINOL RINOL: 2019 ed Juan C's :519 519 12:00: Medical, 00 AM PC) EDT Furosemide FUROSE 15/ complet FUROSEM REHAN MEDGEN (St 40 MG Oral MIDE:3 2019 ed [place] Tablet 10503 12:00: Medical, FUROSEMIDE: 00 AM PC) 921322 EDT Allopurinol ALLOPU 15/ complet ALLOPU RINOL MEDGEN (St ALLOPURINOL RINOL: 2019 ed Juan C's :519 519 12:00: Medical, 00 AM PC) EDT Furosemide FUROSE 15/ complet FUROSEM REHAN MEDGEN (St 40 MG Oral MIDE:3 2019 ed Juan C's Tablet 81272 12:00: Medical, FUROSEMIDE: 00 AM PC) 088141 EDT Sodium SODIUM 04/19/ TABLET 360 complet SODIUM ME DGEN (St Bicarbonate BICARB 2019 ed BICARBONATE Juan C's 650 MG Oral ZIA: 12:00: Medi nils, Tablet [id number] 00 AM PC) SODIUM EDT BICARBONATE :176290 Labetalol LABETA 07/15/ TABLET 30 complet LABETA LOL MEDGEN (St hydrochlori LOL:89 2019 ed Juan C's de 100 MG 6758 12:00: Medical, Oral Tablet 00 AM PC) LABETALOL:8 EDT 37520 Labetalol LABETA 07/15/ TABLET 30 complet LABETA LOL MEDGEN (St hydrochlori LOL:89 2019 ed Juan C's de 100 MG 6758 12:00: Medical, Oral Tablet 00 AM PC) LABETALOL:8 EDT 25224 Sodium SODIUM 15/ TABLET 360 complet SODIUM ME DGEN (St Bicarbonate BICARB 2019 ed BICARBONATE Juan C's 650 MG Oral ZIA: 12:00: Medi nils, Tablet [id number] 00 AM PC) SODIUM EDT BICARBONATE :258099 Tamsulosin TAMSUL 12/14/ CAPSULE 30 complet TAMS ULOSIN MEDGEN (St hydrochlori OSIN:8 2019 ed Juan C's de 0.4 MG 23819 12:00: Medical , Oral 00 AM PC) Capsule EDT TAMSULOSIN: 287284 Furosemide FUROSE 12/14/ TABLET 30 complet FUROS EMIDE MEDGEN (St 20 MG Oral MIDE:3 2019 ed Juan C's Tablet 73992 12:00: Medical, FUROSEMIDE: 00 AM PC) 623533 EDT Furosemide FUROSE 11/ TABLET 30 complet FUROS EMIDE MEDGEN (St 20 MG Oral MIDE:3 2019 ed Juan C's Tablet 93608 12:00: Medical, FUROSEMIDE: 00 AM PC) 235403 EDT Tamsulosin TAMSUL 11/ CAPSULE 30 complet TAMS ULOSIN MEDGEN (St hydrochlori OSIN:8 2019 ed Juan C's de 0.4 MG 87736 12:00: Medical , Oral 00 AM PC) Capsule EDT TAMSULOSIN: 156803 Furosemide FUROSE 11/ TABLET 30 complet FUROS EMIDE MEDGEN (St 20 MG Oral MIDE:3 2019 ed Juan C's Tablet 75527 12:00: Medical, FUROSEMIDE: 00 AM PC) 440741 EDT Tamsulosin TAMSUL 11/ CAPSULE 30 complet TAMS ULOSIN MEDGEN (St hydrochlori OSIN:2019 ed Juan C's de 0.4 MG 33840 12:00: Medical , Oral 00 AM PC) Capsule EDT TAMSULOSIN: 320520 Tamsulosin TAMSUL 12/14/ CAPSULE 30 complet TAMS ULOSIN MEDGEN (St hydrochlori OSIN:8 2019 ed Juan C's de 0.4 MG 36975 12:00: Medical , Oral 00 AM PC) Capsule EDT TAMSULOSIN: 521937 Furosemide FUROSE 11/ TABLET 30 complet FUROS EMIDE MEDGEN (St 20 MG Oral MIDE:3 2019 ed Juan C's Tablet 09683 12:00: Medical, FUROSEMIDE: 00 AM PC) 489915 EDT Tamsulosin TAMSUL 12/14/ CAPSULE 30 complet TAMS ULOSIN MEDGEN (St hydrochlori OSIN:8 2019 ed Juan C's de 0.4 MG 98091 12:00: Medical , Oral 00 AM PC) Capsule EDT TAMSULOSIN: 701786 Furosemide FUROSE 12/14/ TABLET 30 complet FUROS EMIDE MEDGEN (St 20 MG Oral MIDE:3 2019 ed Juan C's Tablet 37813 12:00: Medical, FUROSEMIDE: 00 AM PC) 369881 EDT Tamsulosin TAMSUL 12/14/ CAPSULE 30 complet TAMS ULOSIN MEDGEN (St hydrochlori OSIN:2019 ed Juan C's de 0.4 MG 30661 12:00: Medical , Oral 00 AM PC) Capsule EDT TAMSULOSIN: 107908 Tamsulosin TAMSUL 12/14/ CAPSULE 30 complet TAMS ULOSIN MEDGEN (St hydrochlori OSIN:8 2019 ed Juan C's de 0.4 MG 66209 12:00: Medical , Oral 00 AM PC) Capsule EDT TAMSULOSIN: 711914 Tamsulosin TAMSUL 12/14/ CAPSULE 30 complet TAMS ULOSIN MEDGEN (St hydrochlori OSIN:8 2019 ed Juan C's de 0.4 MG 89537 12:00: Medical , Oral 00 AM PC) Capsule EDT TAMSULOSIN: 959528 Furosemide FUROSE 12/14/ TABLET 30 complet FUROS EMIDE MEDGEN (St 20 MG Oral MIDE:3 2019 ed Juan C's Tablet 36717 12:00: Medical, FUROSEMIDE: 00 AM PC) 201464 EDT Tamsulosin TAMSUL 12/14/ CAPSULE 30 complet TAMS ULOSIN MEDGEN (St hydrochlori OSIN:2019 ed Juan C's de 0.4 MG 60538 12:00: Medical , Oral 00 AM PC) Capsule EDT TAMSULOSIN: 446129 Tamsulosin TAMSUL 12/14/ CAPSULE 30 complet TAMS ULOSIN MEDGEN (St hydrochlori OSIN:8 2019 ed Juan C's de 0.4 MG 84559 12:00: Medical , Oral 00 AM PC) Capsule EDT TAMSULOSIN: 047255 Tamsulosin TAMSUL 12/14/ CAPSULE 30 complet TAMS ULOSIN MEDGEN (St hydrochlori OSIN:8 2019 ed Juan C's de 0.4 MG 22458 12:00: Medical , Oral 00 AM PC) Capsule EDT TAMSULOSIN: 143175 Furosemide FUROSE 12/14/ TABLET 30 complet FUROS EMIDE MEDGEN (St 20 MG Oral MIDE:3 2019 ed Juan C's Tablet 44002 12:00: Medical, FUROSEMIDE: 00 AM PC) 577716 EDT Tamsulosin TAMSUL 12/14/ CAPSULE 30 complet TAMS ULOSIN MEDGEN (St hydrochlori OSIN:8 2019 ed Juan C's de 0.4 MG 58615 12:00: Medical , Oral 00 AM PC) Capsule EDT TAMSULOSIN: 041921 Hydroxyzine HYDROX 11/17/ complet HYDROX YZINE MEDGEN (St Hydrochlori YZINE: 2019 ed Juan C's de 10 MG 123543 12:00: Medical , Oral Tablet 00 AM PC) HYDROXYZINE EST :647665 Hydralazine HYDRAL 11/17/ TABLET 90 complet HYDR ALAZINE MEDGEN (St Hydrochlori AZINE: 2019 ed Juan C's de 25 MG 648047 12:00: Medical , Oral Tablet 00 AM PC) HYDRALAZINE EST :938197 halobetasol HALOBE 11/17/ complet HALOBE TASOL MEDGEN (St propionate TASOL 2019 ed TOPICAL Juan C' s 0.0005 TOPICA 12:00: Medical, MG/MG L:9779 00 AM PC) Topical 78 EST Ointment HALOBETASOL TOPICAL:977 978 Amlodipine AMLODI 11/17/ complet AMLODIP INE MEDGEN (St 10 MG Oral PINE:3 2019 ed Juan C's Tablet 82717 12:00: Medical, AMLODIPINE: 00 AM PC) 326305 EST atorvastati ATORVA 11/17/ complet ATORVA STATIN MEDGEN (St n 10 MG STATIN 2019 ed Juan C's Oral Tablet :13336 12:00: Medi nils, ATORVASTATI 2 00 AM PC) N:140182 EST Aspirin 81 ASPIRI 11/17/ complet ASPIRIN [...] STATIN 2019 ed Juan C's Oral Tablet :24566 12:00: Medi nisl, ATORVASTATI 2 00 AM PC) N:473797 EST Aspirin 81 ASPIRI 11/17/ complet ASPIRIN MEDGEN (St MG Delayed N:3084 2019 ed Juan C's Release 16 12:00: Medical, Oral Tablet 00 AM PC) ASPIRIN:308 EST 416 Hydralazine HYDRAL 11/17/ TABLET 90 complet HYDR ALAZINE MEDGEN (St Hydrochlori AZINE: 2019 ed Juan C's de 25 MG 211443 12:00: Medical , Oral Tablet 00 AM PC) HYDRALAZINE EST :720159 Tacrolimus TACROL 11/17/ complet TACROLI MUS MEDGEN (St 0.001 MG/MG IMUS 2019 ed TOPICAL Juan C' s Topical TOPICA 12:00: Medical, Ointment L:3142 00 AM PC) TACROLIMUS 66 EST TOPICAL:314 266 atorvastati ATORVA 11/17/ complet ATORVA STATIN MEDGEN (St n 10 MG STATIN 2019 ed Juan C's Oral Tablet :52503 12:00: Medi nils, ATORVASTATI 2 00 AM PC) N:583286 EST halobetasol HALOBE 11/17/ complet HALOBE TASOL [...] Oral Tablet 00 AM PC) LABETALOL:8 EST 60985 Amlodipine AMLODI 11/17/ complet AMLODIP INE MEDGEN (St 10 MG Oral PINE:3 2019 ed Juan C's Tablet 56288 12:00: Medical, AMLODIPINE: 00 AM PC) 155008 EST Labetalol LABETA 11/17/ TABLET 120 complet LABETA LOL MEDGEN (St hydrochlori LOL:89 2019 ed Juan C's de 200 MG 6762 12:00: Medical, Oral Tablet 00 AM PC) LABETALOL:8 EST 82836 Hydroxyzine HYDROX 11/17/ complet HYDROX YZINE MEDGEN (St Hydrochlori YZINE: 2019 ed Juan C's de 10 MG 341497 12:00: Medical , Oral Tablet 00 AM PC) HYDROXYZINE EST :892478 Hydralazine HYDRAL 11/17/ TABLET 90 complet HYDR ALAZINE MEDGEN (St Hydrochlori AZINE: 2019 ed Juan C's de 25 MG 325278 12:00: Medical , Oral Tablet 00 AM PC) HYDRALAZINE EST :936775 halobetasol HALOBE 11/17/ complet HALOBE TASOL MEDGEN (St propionate TASOL 2019 ed TOPICAL Juan C' s 0.0005 TOPICA 12:00: Medical, MG/MG L:9779 00 AM PC) Topical 78 EST Ointment HALOBETASOL TOPICAL:977 978 atorvastati ATORVA 11/17/ complet ATORVA STATIN MEDGEN (St n 10 MG STATIN 2019 ed Juan C's Oral Tablet :29953 12:00: Medi nils, ATORVASTATI 2 00 AM PC) N:[id number] EST Tacrolimus TACROL 11/17/ complet TACROLI MUS MEDGEN (St 0.001 MG/MG IMUS 2019 ed TOPICAL Juan C' s Topical TOPICA 12:00: Medical, Ointment L:3142 00 AM PC) TACROLIMUS 66 EST TOPICAL:314 266 Amlodipine AMLODI 11/17/ complet AMLODIP INE MEDGEN (St 10 MG Oral PINE:3 2019 ed Juan C's Tablet 59595 12:00: Medical, AMLODIPINE: 00 AM PC) 848913 EST Hydroxyzine HYDROX 11/17/ complet HYDROX YZINE MEDGEN (St Hydrochlori YZINE: 2019 ed Juan C's de 10 MG 988553 12:00: Medical , Oral Tablet 00 AM PC) HYDROXYZINE EST :076620 Labetalol LABETA 11/17/ TABLET 120 complet LABETA LOL MEDGEN (St hydrochlori LOL:89 2019 ed Juan C's de 200 MG 6762 12:00: Medical, Oral Tablet 00 AM PC) LABETALOL:8 EST 25326 Hydralazine HYDRAL 11/17/ TABLET 90 complet HYDR ALAZINE MEDGEN (St Hydrochlori AZINE: 2019 ed Juan C's de 25 MG 081631 12:00: Medical , Oral Tablet 00 AM PC) HYDRALAZINE EST :138371 Amlodipine AMLODI 11/17/ complet AMLODIP INE MEDGEN (St 10 MG Oral PINE:3 2019 ed Juan C's Tablet 67065 12:00: Medical, AMLODIPINE: 00 AM PC) 269540 EST halobetasol HALOBE 11/17/ complet HALOBE TASOL [...] STATIN 2019 ed Juan C's Oral Tablet :50173 12:00: Medi nils, ATORVASTATI 2 00 AM PC) N:082156 EST Aspirin 81 ASPIRI 11/17/ complet ASPIRIN [...] 2019 ed Juan C's de 10 MG 529963 12:00: Medical , Oral Tablet 00 AM PC) HYDROXYZINE EST :795227 Labetalol LABETA 11/17/ TABLET 120 complet LABETA LOL MEDGEN (St hydrochlori LOL:89 2019 ed Juan C's de 200 MG 6762 12:00: Medical, Oral Tablet 00 AM PC) LABETALOL:8 EST 49734 halobetasol HALOBE 11/17/ complet HALOBE TASOL MEDGEN (St propionate TASOL 2019 ed TOPICAL Juan C' s 0.0005 TOPICA 12:00: Medical, MG/MG L:9779 00 AM PC) Topical 78 EST Ointment HALOBETASOL TOPICAL:977 978 Hydralazine HYDRAL 11/17/ TABLET 90 complet HYDR ALAZINE MEDGEN (St Hydrochlori AZINE: 2019 ed Juan C's de 25 MG 751992 12:00: Medical , Oral Tablet 00 AM PC) HYDRALAZINE EST :494797 Aspirin 81 ASPIRI 11/17/ complet ASPIRIN MEDGEN (St MG Delayed N:3084 2019 ed Juan C's Release 16 12:00: Medical, Oral Tablet 00 AM PC) ASPIRIN:308 EST 416 Labetalol LABETA 11/17/ TABLET 120 complet LABETA LOL MEDGEN (St hydrochlori LOL:89 2019 ed Juan C's de 200 MG 6762 12:00: Medical, Oral Tablet 00 AM PC) LABETALOL:8 EST 40316 Tacrolimus TACROL 11/17/ complet TACROLI MUS MEDGEN [...] 2019 ed Juan C's de 10 MG 485536 12:00: Medical , Oral Tablet 00 AM PC) HYDROXYZINE EST :527928 Labetalol LABETA 11/17/ TABLET 120 complet LABETA LOL MEDGEN (St hydrochlori LOL:89 2019 ed Juan C's de 200 MG 6762 12:00: Medical, Oral Tablet 00 AM PC) LABETALOL:8 EST 11512 Tacrolimus TACROL 11/17/ complet TACROLI MUS MEDGEN [...] STATIN 2019 ed Juan C's Oral Tablet :67927 12:00: Medi nils, ATORVASTATI 2 00 AM PC) N:261298 EST Aspirin 81 ASPIRI complet ASPIRIN MEDGEN (St MG Delayed N:3084 2019 ed Juan C's Release 16 12:00: Medical, Oral Tablet 00 AM PC) ASPIRIN:308 EST 416 Amlodipine AMLODI 11/17/ complet AMLODIP INE MEDGEN (St 10 MG Oral PINE:3 2019 ed Juan C's Tablet 57725 12:00: Medical, AMLODIPINE: 00 AM PC) [id number] EST atorvastati ATORVA complet ATORVA STATIN MEDGEN (St n 10 MG STATIN 2020 ed Juan C's Oral Tablet :31499 12:00: Medi nils, ATORVASTATI 2 00 AM PC) N:[id number] EST Aspirin 81 ASPIRI complet ASPIRIN MEDGEN (St MG Delayed N:3084 2019 ed Juan C's Release 16 12:00: Medical, Oral Tablet 00 AM PC) ASPIRIN:308 EST 416 atorvastati ATORVA complet ATORVA STATIN MEDGEN (St n 10 MG STATIN 2019 ed Juan C's Oral Tablet :80036 12:00: Medi nils, ATORVASTATI 2 00 AM PC) N:[id number] EST Tacrolimus TACROL complet TACROLI MUS MEDGEN [...] STATIN 2019 ed Juan C's Oral Tablet :83016 12:00: Medi nils, ATORVASTATI 2 00 AM PC) N:[id number] EST Aspirin 81 ASPIRI 11/17/ complet ASPIRIN MEDGEN (St MG Delayed N:3084 2019 ed Juan C's Release 16 12:00: Medical, Oral Tablet 00 AM PC) ASPIRIN:308 EST 416 Labetalol LABETA 11/17/ TABLET 120 complet LABETA LOL MEDGEN (St hydrochlori LOL:89 2019 ed Juan C's de 200 MG 6762 12:00: Medical, Oral Tablet 00 AM PC) LABETALOL:8 EST 68324 Hydralazine HYDRAL 11/17/ TABLET 90 complet HYDR ALAZINE MEDGEN (St Hydrochlori AZINE: 2019 ed Juan C's de 25 MG [id number] 12:00: Medical , Oral Tablet 00 AM PC) HYDRALAZINE EST :[id number] halobetasol HALOBE 11/17/ complet HALOBE TASOL MEDGEN (St propionate TASOL 2019 ed TOPICAL Juan C' s 0.0005 TOPICA 12:00: Medical, MG/MG L:9779 00 AM PC) Topical 78 EST Ointment HALOBETASOL TOPICAL:977 978 Hydroxyzine HYDROX 11/17/ complet HYDROX YZINE MEDGEN (St Hydrochlori YZINE: 2019 ed Juan C's de 10 MG [id number] 12:00: Medical , Oral Tablet 00 AM PC) HYDROXYZINE EST :[id number] Hydroxyzine HYDROX complet HYDROX YZINE MEDGEN (St Hydrochlori YZINE: 2019 ed Juan C's de 10 MG [id number] 12:00: Medical , Oral Tablet 00 AM PC) HYDROXYZINE EST :[id number] Aspirin 81 ASPIRI 11/17/ complet ASPIRIN MEDGEN (St MG Delayed N:3084 2019 ed Juan C's Release 16 12:00: Medical, Oral Tablet 00 AM PC) ASPIRIN:308 EST 416 atorvastati ATORVA complet ATORVA STATIN MEDGEN (St n 10 MG STATIN 2019 ed Juan C's Oral Tablet :75442 12:00: Medi nils, ATORVASTATI 2 00 AM PC) N:[id number] EST halobetasol HALOBE 11/17/ complet HALOBE TASOL [...] 2019 ed Juan C's de 25 MG [id number] 12:00: Medical , Oral Tablet 00 AM PC) HYDRALAZINE EST :[id number] Aspirin 81 ASPIRI 11/17/ complet ASPIRIN MEDGEN (St MG Delayed N:3084 2019 ed Juan C's Release 16 12:00: Medical, Oral Tablet 00 AM PC) ASPIRIN:308 EST 416 atorvastati ATORVA 11/17/ complet ATORVA STATIN MEDGEN (St n 10 MG STATIN 2019 ed Juan C's Oral Tablet :55704 12:00: Medi nils, ATORVASTATI 2 00 AM PC) N:[id number] EST Tacrolimus TACROL 11/17/ complet TACROLI MUS [...] Oral PINE:3 2019 ed Juan C's Tablet 08796 12:00: Medical, AMLODIPINE: 00 AM PC) [id number] EST atorvastati ATORVA 11/17/ complet ATORVA STATIN MEDGEN (St n 10 MG STATIN 2019 ed Juan C's Oral Tablet :86872 12:00: Medi nils, ATORVASTATI 2 00 AM PC) N:[id number] EST Amlodipine AMLODI 11/17/ complet AMLODIP INE MEDGEN (St 10 MG Oral PINE:3 2019 ed Juan C's Tablet 41040 12:00: Medical, AMLODIPINE: 00 AM PC) [id number] EST Tacrolimus TACROL 11/17/ complet TACROLI MUS [...] complet SA NTYL MEDGEN (St 0.25 UNT/MG :84466 2018 ed Juan C's Topical 17 12:00: Medical, Ointment 00 AM PC) [Santyl] EST SANTYL:[id number] 617 COLLAGENASE SANTYL 11/22/ OINTMENT 1 complet SA NTYL MEDGEN (St 0.25 UNT/MG :46066 2018 ed Juan C's Topical 17 12:00: Medical, Ointment 00 AM PC) [Santyl] EST SANTYL:[id number] 617 Labetalol LABETA 22/ TABLET 60 complet LABETA LOL MEDGEN (St hydrochlori LOL:89 2018 ed Juan C's de 100 MG 6758 12:00: Medical, Oral Tablet 00 AM PC) LABETALOL:8 EST 47815 COLLAGENASE SANTYL 08/27/ OINTMENT 1 complet SA NTYL MEDGEN (St 0.25 UNT/MG :37102 2018 ed Juan C's Topical 17 12:00: Medical, Ointment 00 AM PC) [Santyl] EST SANTYL:[id number] 617 Labetalol LABETA 22/ TABLET 60 complet LABETA LOL MEDGEN (St hydrochlori LOL:89 2018 ed Juan C's de 100 MG 6758 12:00: Medical, Oral Tablet 00 AM PC) LABETALOL:8 EST 58302 COLLAGENASE SANTYL 08/27/ OINTMENT 1 complet SA NTYL MEDGEN (St 0.25 UNT/MG :22785 2018 ed Juan C's Topical 17 12:00: Medical, Ointment 00 AM PC) [Santyl] EST SANTYL:[id number] 617 Labetalol LABETA 22/ TABLET 60 complet LABETA LOL MEDGEN (St hydrochlori LOL:89 2018 ed Juan C's de 100 MG 6758 12:00: Medical, Oral Tablet 00 AM PC) LABETALOL:8 EST 23006 Labetalol LABETA 22/ TABLET 60 complet LABETA LOL MEDGEN (St hydrochlori LOL:89 2018 ed Juan C's de 100 MG 6758 12:00: Medical, Oral Tablet 00 AM PC) LABETALOL:8 EST 82074 COLLAGENASE SANTYL 08/27/ OINTMENT 1 complet SA NTYL MEDGEN (St 0.25 UNT/MG :43938 2018 ed Juan C's Topical 17 12:00: Medical, Ointment 00 AM PC) [Santyl] EST SANTYL:1149 617 Labetalol LABETA 11/22/ TABLET 60 complet LABETA LOL MEDGEN (St hydrochlori LOL:89 2018 ed Juan C's de 100 MG 6758 12:00: Medical, Oral Tablet 00 AM PC) LABETALOL:8 EST 51795 COLLAGENASE SANTYL 22/ OINTMENT 1 complet SA NTYL MEDGEN (St 0.25 UNT/MG :94760 2018 ed Juan C's Topical 17 12:00: Medical, Ointment 00 AM PC) [Santyl] EST SANTYL:1149 617 COLLAGENASE SANTYL 22/ OINTMENT 1 complet SA NTYL MEDGEN (St 0.25 UNT/MG :82404 2018 ed Juan C's Topical 17 12:00: Medical, Ointment 00 AM PC) [Santyl] EST SANTYL:1149 617 Labetalol LABETA 11/22/ TABLET 60 complet LABETA LOL MEDGEN (St hydrochlori LOL:89 2018 ed Juan C's de 100 MG 6758 12:00: Medical, Oral Tablet 00 AM PC) LABETALOL:8 EST 86114 COLLAGENASE SANTYL 08/27/ OINTMENT 1 complet SA NTYL MEDGEN (St 0.25 UNT/MG :58499 2018 ed Juan C's Topical 17 12:00: Medical, Ointment 00 AM PC) [Santyl] EST SANTYL:1149 617 COLLAGENASE SANTYL 08/27/ OINTMENT 1 complet SA NTYL MEDGEN (St 0.25 UNT/MG :71332 2018 ed Juan C's Topical 17 12:00: Medical, Ointment 00 AM PC) [Santyl] EST SANTYL:1149 617 Labetalol LABETA 22/ TABLET 60 complet LABETA LOL MEDGEN (St hydrochlori LOL:89 2018 ed Juan C's de 100 MG 6758 12:00: Medical, Oral Tablet 00 AM PC) LABETALOL:8 EST 54571 COLLAGENASE SANTYL 22/ OINTMENT 1 complet SA NTYL MEDGEN (St 0.25 UNT/MG :38935 2018 ed Juan C's Topical 17 12:00: Medical, Ointment 00 AM PC) [Santyl] EST SANTYL:1149 617 COLLAGENASE SANTYL 22/ OINTMENT 1 complet SA NTYL MEDGEN (St 0.25 UNT/MG :94469 2018 ed Juan C's Topical 17 12:00: Medical, Ointment 00 AM PC) [Santyl] EST SANTYL:1149 617 COLLAGENASE SANTYL 22/ OINTMENT 1 complet SA NTYL MEDGEN (St 0.25 UNT/MG :42204 2018 ed Juan C's Topical 17 12:00: Medical, Ointment 00 AM PC) [Santyl] EST SANTYL:[id number] 617 Insurance Providers Payer name Policy type Policy ID Covered Covered democrat's Policy P tomeka / Coverage democrat ID relationship to Cantu Inf ormation type cantu HIP MEDICAID [id number] SP [id number] MEDICAID [id number] SP [id number] [facility] [id number] MEDICAID OF [id number] [place] [id number] SP [id number] [facility] [id number] PT [id number] ESSENTIAL 1 PLAN 1 MEDICAID [id number] SP [id number] SELF PAY SP INSURANCE Problems, Conditions, and Diagnoses Code Display Name Description Problem Type Effective Data Dates Source(s) L29.9 Pruritus, PRURITUS, Problem 05/31/2020 MEDGEN (St unspecified UNSPECIFIED 12:00:00 AM [facility], ) L29.9 Pruritus, PRURITUS, Problem 05/31/2020 MEDGEN (St unspecified UNSPECIFIED 12:00:00 AM [facility], ) L29.9 Pruritus, PRURITUS, Problem 05/31/2020 MEDGEN (St unspecified UNSPECIFIED 12:00:00 AM [facility], ) F32.9 Major depressive MAJOR DEPRESSIVE Problem 05/05/2020 ME DGEN (St disorder, single DISORDER, SINGLE 12:00:00 AM J ohn's episode, unspecified EPISODE, EDT [facility] nils, PC) UNSPECIFIED F32.9 Major depressive [...] F32.9 Major depressive MAJOR DEPRESSIVE Problem 05/05/2020 MA DGEN (St disorder, single DISORDER, SINGLE 12:00:00 [...] Problem 04/19/2020 MEDGEN ( St 12:00:00 AM Ujan C's EDT Medical, PC) C90.00 Multiple myeloma [...] Problem 04/19/2020 MEDGEN ( St 12:00:00 AM [facility], ) I50.32 Chronic diastolic CHRONIC DIASTOLIC Problem 03/24/2020 MEDGEN (St (congestive) heart (CONGESTIVE) HEART 12:00:00 AM Juan C's failure FAILURE [facility], ) I50.32 Chronic diastolic CHRONIC DIASTOLIC Problem 03/24/2020 MEDGEN (St (congestive) heart (CONGESTIVE) HEART 12:00:00 AM Juan C's failure FAILURE [facility], ) I50.32 Chronic diastolic CHRONIC DIASTOLIC Problem 03/24/2020 MEDGEN (St (congestive) heart (CONGESTIVE) HEART 12:00:00 AM Juan C's failure FAILURE [facility], ) I50.32 Chronic diastolic CHRONIC DIASTOLIC Problem 03/24/2020 MEDGEN (St (congestive) heart (CONGESTIVE) HEART 12:00:00 AM [facility] I50.32 Chronic diastolic CHRONIC DIASTOLIC Problem 03/24/2020 MEDGEN (St (congestive) heart (CONGESTIVE) HEART 12:00:00 AM Juan C's failure [facility], ) I50.32 Chronic diastolic CHRONIC DIASTOLIC Problem 03/24/2020 MEDGEN (St (congestive) heart (CONGESTIVE) HEART 12:00:00 AM Juan C's failure FAILURE [facility], ) I50.32 Chronic diastolic CHRONIC DIASTOLIC Problem 03/24/2020 MEDGEN (St (congestive) heart (CONGESTIVE) HEART 12:00:00 AM Juanc '[facility] I50.32 Chronic diastolic CHRONIC DIASTOLIC Problem 03/24/2020 MEDGEN (St (congestive) heart (CONGESTIVE) HEART 12:00:00 AM Juan C's failure FAILURE [facility], ) I50.32 Chronic diastolic CHRONIC DIASTOLIC Problem 03/24/2020 MEDGEN (St (congestive) heart (CONGESTIVE) HEART 12:00:00 AM Juan C's failure FAILURE [facility], ) I50.32 Chronic diastolic CHRONIC DIASTOLIC Problem 03/24/2020 MEDGEN (St (congestive) heart (CONGESTIVE) HEART 12:00:00 AM Juan C's failure FAILURE [facility], ) I50.32 Chronic diastolic CHRONIC DIASTOLIC Problem 03/24/2020 MEDGEN (St (congestive) heart (CONGESTIVE) HEART 12:00:00 AM Juan C's failure FAILURE [facility], ) R53.81 Other malaise OTHER MALAISE Problem 03/22/2020 MEDGEN ( St 12:00:00 AM [facility], ) R53.81 Other malaise OTHER MALAISE Problem 03/22/2020 MEDGEN ( St 12:00:00 AM [facility]) R53.81 Other malaise OTHER MALAISE Problem 03/22/2020 MEDGEN ( St 12:00:00 AM [facility], ) R53.81 Other malaise OTHER MALAISE Problem 03/22/2020 MEDGEN ( St 12:00:00 AM [facility], ) R53.81 Other malaise OTHER MALAISE Problem 03/22/2020 MEDGEN ( St 12:00:00 AM [facility], ) R53.81 Other malaise OTHER MALAISE Problem 03/22/2020 MEDGEN ( St 12:00:00 AM [facility], ) R53.81 Other malaise OTHER MALAISE Problem 03/22/2020 MEDGEN ( St 12:00:00 AM [facility]) R53.81 Other malaise OTHER MALAISE Problem 03/22/2020 MEDGEN ( St 12:00:00 AM [facility], ) R53.81 Other malaise OTHER MALAISE Problem 03/22/2020 MEDGEN ( St 12:00:00 AM [facility], ) R53.81 Other malaise OTHER MALAISE Problem 03/22/2020 MEDGEN ( St 12:00:00 AM [facility], ) R53.81 Other malaise OTHER MALAISE Problem 03/22/2020 MEDGEN ( St 12:00:00 AM [facility]) R53.81 Other malaise OTHER MALAISE Problem 03/22/2020 MEDGEN ( St 12:00:00 AM [facility], ) 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 Problem 12/15/2019 MEDGEN (St 12:00:00 AM [facility]) 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 Problem 12/15/2019 MEDGEN (St 12:00:00 AM [facility]) 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 Problem 12/15/2019 MEDGEN (St 12:00:00 AM [facility]) 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 Problem 12/15/2019 MEDGEN (St 12:00:00 AM [facility]) 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 Problem 12/15/2019 MEDGEN (St 12:00:00 AM [facility]) 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 Problem 12/15/2019 MEDGEN (St 12:00:00 AM [facility]) 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 Problem 12/15/2019 MEDGEN (St 12:00:00 AM [facility]) 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 Problem 12/15/2019 MEDGEN (St 12:00:00 AM [facility]) 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 Problem 12/15/2019 MEDGEN (St 12:00:00 AM [facility]) 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 Problem 12/15/2019 MEDGEN (St 12:00:00 AM [facility]) 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 Problem 12/15/2019 MEDGEN (St 12:00:00 AM [facility]) 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 Problem 12/15/2019 MEDGEN (St 12:00:00 AM [facility]) 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 09/22/2019 ME DGEN (St ulcer of unspecified CHRONIC ULCER OF 12:00:00 AM Juan C's heel and midfoot UNSPECIFIED HEEL EST Ut dical, ) with unspecified AND MIDFOOT WITH severity UNSPECIFIED SEVERITY E88.09 Other disorders of OTHER DISORDERS OF Problem 9 MEDGEN (St plasma-protein PLASMA-PROTEIN 12:00:00 AM Juan C' s metabolism, not METABOLISM, NOT EST [facility], ) elsewhere classified ELSEWHERE CLASSIFIED D72.829 Elevated white blood ELEVATED WHITE Problem 09/22/2019 MEDGEN (St cell count, BLOOD CELL COUNT, 12:00:00 AM Juan C' s unspecified UNSPECIFIED EST Medical, ) D64.9 Anemia, unspecified ANEMIA, Problem 09/22/2019 MEDGE N (St UNSPECIFIED 12:00:00 AM [facility], ) R21 Rash and other RASH [...] C's heel and midfoot UNSPECIFIED HEEL EST Ut dictn, ) with unspecified AND MIDFOOT WITH severity [...] (St disease without DISEASE WITHOUT 12:00:00 AM Ivncent n's heart failure HEART FAILURE EST Medical, PC) 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 09/22/2019 ME DGEN (St ulcer of unspecified CHRONIC ULCER OF 12:00:00 AM Juan C's heel and midfoot UNSPECIFIED HEEL EST Ut dical, ) with unspecified AND MIDFOOT WITH [...] 09/22/2019 MEDGE N (St UNSPECIFIED 12:00:00 AM Juanc 's EST Medical, PC) R21 Rash and other [...] C's heel and midfoot UNSPECIFIED HEEL EST Ut dical, ) with unspecified AND MIDFOOT WITH severity UNSPECIFIED SEVERITY E88.09 Other disorders of OTHER DISORDERS OF Problem 9 MEDGEN (St plasma-protein PLASMA-PROTEIN 12:00:00 AM Juan C' s metabolism, not METABOLISM, NOT EST [facility], ) elsewhere classified ELSEWHERE CLASSIFIED D72.829 [...] C's heel and midfoot UNSPECIFIED HEEL EST Ut dical, ) with unspecified AND MIDFOOT WITH [...] C's heel and midfoot UNSPECIFIED HEEL EST [facility], ) with unspecified AND MIDFOOT [...] C's heel and midfoot UNSPECIFIED HEEL EST Ut dical, PC) with unspecified AND MIDFOOT WITH [...] C's heel and midfoot UNSPECIFIED HEEL EST Ut dical, PC) with unspecified AND MIDFOOT WITH [...] C's heel and midfoot UNSPECIFIED HEEL EST Ut dical, ) with unspecified AND MIDFOOT WITH [...] 09/22/2019 MEDGE N (St UNSPECIFIED 12:00:00 AM Jaun C's [facility] Medical, ) R21 Rash and other RASH [...] C's heel and midfoot UNSPECIFIED HEEL EST Ut dictn, ) with unspecified AND MIDFOOT WITH severity [...] C's heel and midfoot UNSPECIFIED HEEL EST Ut dical, ) with unspecified AND MIDFOOT WITH [...] C's heel and midfoot UNSPECIFIED HEEL EST Ut dical, PC) with unspecified AND MIDFOOT WITH severity UNSPECIFIED SEVERITY E88.09 Other disorders of OTHER DISORDERS OF Problem 9 MEDGEN (St plasma-protein PLASMA-PROTEIN 12:00:00 AM Juan C' s metabolism, not METABOLISM, NOT EST Medi nlis, PC) elsewhere classified ELSEWHERE CLASSIFIED D72.829 Elevated [...] (St left heel, LEFT HEEL, 12:00:00 AM Juanc 's unspecified stage UNSPECIFIED STAGE EST Medical, PC) [...] MEDGEN (St disease, unspecified DISEASE, 12:00:00 AM Vicnent n's UNSPECIFIED EST Medical, PC) I16.9 Hypertensive [...] MEDGE N (St hypertension (PRIMARY) 12:00:00 AM Ujan C's HYPERTENSION EST Medical, PC) L97.528 Non-pressure [...] 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, ) Documentation of current 05/31/2020 MED GEN (Buck's medications (procedure) 12:00:[address] [facility], ) OFFICE OUTPATIENT VISIT 05/31/2020 MEDG EN (Bcuk's 15 MINUTES 12:00:00 AM EDT Medical, ) OFFICE OUTPATIENT VISIT 05/31/2020 MEDG EN (Buck's 15 MINUTES 12:00:00 AM EDT [facility], ) Documentation of current 05/31/2020 MED GEN (Buck's medications (procedure) 12:00:[address] [facility], ) Documentation of current 05/31/2020 MED GEN (Buck's medications (procedure) 12:00:00 AM EDT [facility]) Documentation of current 05/31/2020 MED GEN (Buck's medications (procedure) 12:00:00 AM EDT [facility]) OFFICE OUTPATIENT VISIT 05/31/2020 [...] EN (Buck's 15 MINUTES 12:00:00 AM EDT [facility], ) COLLECTION VENOUS BLOOD 05/05/2020 MEDG [...] MEDG EN (Buck's VENIPUNCTURE 12:00:00 AM EDT [facility], PC) OFFICE OUTPATIENT VISIT 05/05/2020 MEDG EN (Buck's 15 MINUTES 12:00:00 AM EDT [facility], ) COLLECTION VENOUS BLOOD 05/05/2020 MEDG EN [facility] current 05/03/2020 MED [...] GEN (Buck's medications (procedure) 12:00:[address] [facility], ) Documentation of current 05/03/2020 MED GEN (Buck's medications (procedure) 12:00:[address] [facility], ) Documentation of current 05/03/2020 MED GEN (Buck's medications (procedure) 12:00:[address] [facility], ) Documentation of current 05/03/2020 MED GEN (Buck's medications (procedure) 12:00:[address] [facility], ) Documentation of current 05/03/2020 MED GEN (Buck's medications (procedure) 12:00:[address] [facility], ) Documentation of current 05/03/2020 MED GEN (Buck's medications (procedure) 12:00:[address] [facility], ) Documentation of current 04/26/2020 MED GEN (Buck's medications (procedure) 12:00:[address] [facility], ) OFFICE OUTPATIENT VISIT 04/26/2020 MEDG EN (Buck's 15 MINUTES 12:00:00 AM [facility], ) COLLECTION VENOUS BLOOD 04/26/2020 MEDG EN (Buck's VENIPUNCTURE 12:00:00 AM [facility], ) Documentation of current 04/26/2020 MED GEN (Buck's medications (procedure) 12:00:[address] [facility], ) OFFICE OUTPATIENT VISIT 04/26/2020 MEDG EN (Buck's 15 MINUTES 12:00:00 AM [facility], ) COLLECTION VENOUS BLOOD 04/26/2020 MEDG EN (Buck's VENIPUNCTURE 12:00:00 AM [facility], ) Documentation of current 04/26/2020 MED GEN (Buck's medications (procedure) 12:00:[address] [facility], ) OFFICE OUTPATIENT VISIT 04/26/2020 MEDG EN (Buck's 15 MINUTES 12:00:00 AM [facility], ) COLLECTION VENOUS BLOOD 04/26/2020 MEDG EN (Buck's VENIPUNCTURE 12:00:00 AM [facility], ) Documentation of current 04/26/2020 MED GEN (Buck's medications (procedure) 12:00:00 AM EDT [facility]) OFFICE OUTPATIENT VISIT 04/26/2020 MEDG EN ([facility] VENOUS BLOOD 04/26/2020 MEDG EN (Buck's VENIPUNCTURE 12:00:00 AM [facility], ) Documentation of current 04/26/2020 MED GEN (Buck's medications (procedure) 12:00:00 AM [facility]) OFFICE OUTPATIENT VISIT 04/26/2020 MEDG EN ([facility]CTION VENOUS BLOOD 04/26/2020 MEDG EN (Buck's VENIPUNCTURE 12:00:00 AM [facility], ) Documentation of current 04/26/2020 MED GEN (Buck's medications (procedure) 12:00:00 AM [facility], ) OFFICE OUTPATIENT VISIT 04/26/2020 MEDG EN (Buck's 15 MINUTES 12:00:00 AM [facility], ) COLLECTION VENOUS BLOOD 04/26/2020 MEDG EN (Buck's VENIPUNCTURE 12:00:00 AM [facility], ) Documentation of current 04/26/2020 MED GEN (Buck's medications (procedure) 12:00:00 AM [facility]) OFFICE OUTPATIENT VISIT 04/26/2020 MEDG EN (Buck's 15 MINUTES 12:00:00 AM [facility], ) COLLECTION VENOUS BLOOD 04/26/2020 MEDG EN ([facility]IT 04/19/2020 MEDG EN ([facility]ISIT 04/19/2020 MEDG EN ([facility]IT 04/19/2020 MEDG EN ([facility]IT 04/19/2020 MEDG EN ([facility] VISIT 04/19/2020 MEDG [...] MEDG EN (Buck's 15 MINUTES 12:00:00 AM [facility], PC) Documentation of current 03/24/2020 MED [...] MEDG EN (Buck's 15 MINUTES 12:00:00 AM [facility], PC) Documentation of current 03/24/2020 MED [...] MEDG EN (Buck's 15 MINUTES 12:00:00 AM [facility], PC) Documentation of current 03/24/2020 MED GEN [...] (Buck's medications (procedure) 12:00:00 AM EDT [facility]) Documentation of current 03/24/2020 MED GEN [...] 03/22/2020 MEDG EN (Buck's VENIPUNCTURE 12:00:00 AM [facility] Medical, PC) Documentation of current 03/22/2020 MED [...] MEDG EN (Buck's 25 MINUTES 12:00:00 AM [facility], ) COLLECTION VENOUS BLOOD 03/22/2020 MEDG EN (Buck's VENIPUNCTURE 12:00:00 AM [facility], ) Documentation of current 03/22/2020 MED [...] MEDG EN (Buck's 25 MINUTES 12:00:00 AM [facility] Medical, PC) COLLECTION VENOUS BLOOD 03/22/2020 MEDG EN (Buck's VENIPUNCTURE 12:00:00 AM [facility], PC) Documentation of current 03/22/2020 MED GEN [...] 03/22/2020 MEDG EN (Buck's VENIPUNCTURE 12:00:00 AM [facility], PC) Documentation of current 03/22/2020 MED GEN [...] EN (Buck's 25 MINUTES 12:00:00 AM EDT [facility], ) COLLECTION VENOUS BLOOD 03/22/2020 MEDG EN (Buck's VENIPUNCTURE 12:00:00 AM [facility], ) Documentation of current 03/22/2020 MED GEN (Buck's medications (procedure) 12:00:00 AM EDT stefan, ) Documentation of current 03/22/2020 MED GEN (Buck's medications (procedure) 12:00:00 AM EDT [facility]) Documentation of current 03/22/2020 MED GEN (Buck's medications (procedure) 12:00:00 AM EDT [facility], ) OFFICE OUTPATIENT VISIT 03/22/2020 MEDG EN (Buck's 25 MINUTES 12:00:00 AM [facility], ) COLLECTION VENOUS BLOOD 03/22/2020 MEDG EN (Buck's VENIPUNCTURE 12:00:00 AM [facility], ) Documentation of current 03/22/2020 MED [...] MEDG EN (Buck's 25 MINUTES 12:00:00 AM [facility], ) COLLECTION VENOUS BLOOD 03/22/2020 MEDG EN (Buck's VENIPUNCTURE 12:00:00 AM [facility], ) Documentation of current 03/22/2020 MED [...] MEDG EN (Buck's 25 MINUTES 12:00:00 AM [facility], ) COLLECTION VENOUS BLOOD 03/22/2020 MEDG EN (Buck's VENIPUNCTURE 12:00:00 AM [facility], ) Documentation of current 03/22/2020 MED [...] MEDG EN (Buck's 25 MINUTES 12:00:00 AM [facility] Medical, ) COLLECTION VENOUS BLOOD 03/22/2020 MEDG EN (Buck's VENIPUNCTURE 12:00:00 AM [facility], ) Documentation of current 03/22/2020 MED [...] 03/22/2020 MEDG EN (Buck's VENIPUNCTURE 12:00:00 AM [facility] Medical, PC) Documentation of current 03/22/2020 MED [...] EVALUATION 21-30 MIN 12:00:00 AM EDT Cathi [facility] ) Documentation of current 02/16/2020 MED [...] GEN (Bcuk's medications (procedure) 12:00:00 AM EDT stefan PC) [...] Buck's EVALUATION 21-30 MIN 12:00:00 AM EDT [facility], ) Documentation of current 02/16/2020 MED [...] Buck's EVALUATION 21-30 MIN 12:00:00 AM EDT [facility], ) OFFICE OUTPATIENT VISIT 12/15/2019 MEDG EN [facility] 12/15/2019 MEDG EN ([facility] VISIT 12/15/2019 MEDG [...] MED GEN (Buck's medications (procedure) 12:00:00 AM [facility] [place]) Documentation of current 11/17/2019 MED GEN [...] [place]all[place]) Documentation of current 11/17/2019 MED GEN (Bukc's medications (procedure) 12:00:00 AM SAMPSON Cevallos) OFFICE [...] MED GEN (Buck's medications (procedure) 12:00:00 AM SAMPOSN Cevallos) Documentation of current 11/17/2019 MED GEN [...] (procedure) 12:00:00 AM EST Max aviles, ) Documentation of current 11/17/2019 MED [...] PC) Documentation of current 09/22/2019 MED GEN (Bcuk's medications (procedure) 12:00:00 AM MARILOU aviles, PC) [...] GEN (Buck's medications (procedure) 12:00:00 AM MARILOU aviels, PC) Documentation of current 09/01/2019 MED GEN [...] GEN (Buck's medications (procedure) 12:00:00 AM MARILOU avlies, PC) Documentation of current 09/01/2019 MED GEN [...] GEN (Buck's medications (procedure) 12:00:00 AM SAMPSON Ceavllos) Documentation of current 09/01/2019 MED GEN (Buck's [...] MED GEN (Buck's medications (procedure) 12:00:00 AM SAPMSON Cevallos) Documentation of current 09/01/2019 MED GEN [...] MED GEN ([facility]'s medications (procedure) 12:00:00 AM SMAPSON Cevallos) Documentation of current 09/01/2019 MED GEN [...] aviles, PC) Results ID Date Data Source [id number] 05/01/2020 12:00:00 AM EDT MED[facility] ([facility] Name Value Range Interpretation Code Description Data Supporting Source(s) Document(s ) Ferritin, 191 ng/mL Normal (applies to MEDGEN (St Serum non-numeric Juan C's results) Medical, PC) ID Date Data Source [id number] 05/01/2020 12:00:00 AM EDT [facility] ([facility], ) Name Value Range Interpretation Description Data Sup porting Code Source(s) Document(s ) Deprecated 2.4 mg/dL Below low normal MEDGEN (St Phosphorus Juan C's [Mass/time] in Medical, ) 24 hour Urine ID Date Data Source [id number] 05/01/2020 12:00:00 AM EDT MEDGEN ([facility], ) Name Value Range Interpretation Description Data Sup porting Code Source(s) Document(s ) Vitamin D, 29.4 Below low normal MEDGEN (St 25-Hydroxy ng/mL [facility], ) ID Date Data Source [id number] 05/01/2020 12:00:00 AM EDT MEDGEN ([facility], ) Name Value Range Interpretation Code Description Data Supporting Source(s) Document(s ) Creatinine 77.9 mg/dL Normal (applies to MEDGEN (S t , Urine non-numeric Juan C's results) [facility], ) Protein,To 227.0 Normal (applies to MEDGEN (St ruth,Urine mg/dL non-numeric Juan C's results) [facility], ) Protein/Cr 2914 mg/g Above high normal MEDGEN (St eat Ratio creat [facility], ) ID Date Data Source [id number] 05/01/2020 12:00:00 AM EDT MEDGEN ([facility], ) Name Value Range Interpretation Description Data Sup porting Code Source(s) Document(s ) Iron 270 ug/dL Normal (applies to MEDGEN (St Bind.Cap.(TIBC non-numeric Juan C's ) results) [facility], ) UIBC 231 ug/dL Normal (applies to MEDGEN (St non-numeric Juan C's results) [facility], ) Iron 39 ug/dL Normal (applies to MEDGEN (St [Mass/volume] non-numeric Juan C's in Serum or results) [facility], ) Plasma Iron 14 % Below low normal MEDGEN (St saturation Juan [facility] [[facility], ) Fraction] in Serum or Plasma ID Date Data Source [id number] 05/01/2020 12:00:00 AM EDT MEDGEN ([facility], ) Name Value Range Interpretation Description [...] results) Medical, ) ID Date Data Source [id number] 05/01/2020 12:00:00 AM EDT MEDGEN ([facility] [...] by Light microscopy ID Date Data Source [id number] 05/01/2020 12:00:00 AM EDT MEDGEN ([facility], ) Name Value Range Interpretation Description Data Sup porting Code Source(s) Document(s ) Glucose 90 mg/dL Normal (applies MEDGEN (St [Mass/volume] in to non-numeric Juan C's Urine collected for results) Medical, unspecified ) duration Urea nitrogen 37 mg/dL Above high MEDGEN (St [Mass/volume] in normal Juan C's Serum or Plasma [facility], ) Creatinine 4.28 Above high MEDGEN (St [Interpretation] in mg/dL normal Juan C's Urine [facility], ) eGFR If NonAfricn 13 Below low normal MEDGE N (St Am mL/min/[address], ) eGFR If Africn Am 15 Below low normal MEDGE N (St mL/min/1 [facility], ) Sodium 138 Normal (applies MEDGEN (St [Moles/volume] in mmol/L to non-numeric Juan C's Serum or Plasma results) Medical, ) BUN/Creatinine 9 Below low normal MEDGEN ( St Ratio [facility], ) Potassium 5.1 Normal (applies MEDGEN (St [Mass/volume] in mmol/L to non-numeric Juan C's Blood results) [facility], ) Chloride 108 Above high MEDGEN (St [Moles/volume] in mmol/L normal Juan C's Serum or Plasma [facility], ) Carbon dioxide, 19 Below low [...] 4.7 g/dL Above high MEDGEN (St normal [facility], ) A/G Ratio 0.8 Below low normal MEDGEN ([facility], ) Bilirubin.total 0.4 Normal (applies MEDGEN ( St [Mass/volume] in mg/dL to non-numeric Juan C's Serum or Plasma results) [facility], ) Alkaline 86 IU/L Normal (applies [...] Serum or Plasma ID Date Data Source [id number] 05/01/2020 12:00:00 AM EDT MEDGEN (St [facility], ) Name Value Range Interpretation Description Data Sup porting Code Source(s) Document(s ) Leukocytes 13.3 Above high normal MEDGEN (St [#/volume] in x10E3/uL Juan C's Blood by [facility], ) Automated count Erythrocytes 2.72 Below lower panic MEDGEN (S t [#/volume] in x10E6/uL limits Juan C's Blood by [facility], ) Automated count Hemoglobin 9.1 g/dL Below low normal MEDGEN (St [Mass/volume] in Juan C's Blood [facility], ) Hematocrit 27.8 % Below low normal MEDGEN (St [Volume Juan C's Fraction] of [facility], ) Blood by Automated count MCV 102 fL Above high normal MEDGEN ([facility], ) MCH 33.5 pg Above high normal MEDGEN ([facility], ) MCHC 32.7 Normal (applies MEDGEN (St g/dL to non-numeric Juan C's results) [facility]) RDW 18.4 % Above high normal MEDGEN ([facility], ) Platelets 230 Normal (applies MEDGEN (St [#/area] in x10E3/uL to non-numeric Juan C's Blood by results) [facility]) Microscopy high power field Neutrophils [#] 49 % Normal (applies MEDGEN ( St in Body fluid by to non-numeric Juan C's Manual count results) [facility]) Lymphs 33 % Normal (applies MEDGEN (St to non-numeric Juan C's results) [facility]) Monocytes 8 % Normal (applies MEDGEN (St [#/volume] in to non-numeric Juan C's Cord blood results) [facility], ) Eos 4 % Normal (applies MEDGEN (St to non-numeric Juan C's results) [facility], ) Basos 0 % Normal (applies MEDGEN (St to non-numeric Juan C's results) [facility], ) Immature cells Note Normal (applies MEDGEN (S t [#/volume] in to non-numeric Juan C's Blood results) [facility], ) Neutrophils 6.5 Normal (applies MEDGEN (St (Absolute) x10E3/uL to non-numeric Juan C's results) [facility], ) Lymphs 4.4 Above high normal MEDGEN (St (Absolute) x10E3/uL [facility], ) Monocytes(Absolu 1.1 Above high normal MEDGE N (St te) x10E3/uL [facility], ) Baso (Absolute) 0.0 Normal (applies MEDGEN ( St x10E3/uL to non-numeric Juan C's results) [facility], ) Eos (Absolute) 0.5 Above high normal MEDGEN (St x10E3/uL Ujan C's [facility], ) NRBC 8 % Above high normal MEDGEN ([facility], ) Hematology Note: Normal (applies MEDGEN (St Comments: to non-numeric Juan C's results) [facility], ) ID Date Data Source [id number] 05/01/2020 12:00:00 AM EDT MEDGEN ([facility], ) Name Value Range Interpretation Description Data Sup porting Code Source(s) Document(s ) Metamyelocytes [#] 2 % Above high normal MED GEN (St in Body fluid by Juan C's Manual count [facility], ) Myelocytes [#] in 4 % Above high normal MEDG EN (St Body fluid by [facility] Manual count [facility], ) ID Date Data Source [id number] 05/01/2020 12:00:00 AM EDT MEDGEN ([facility], ) Name Value Range Interpretation Code Description Data Supporting Source(s) Document(s ) Ferritin, 191 ng/mL Normal (applies to MEDGEN (St Serum non-numeric Juan C's results) [facility], ) ID Date Data Source [id number] 05/01/2020 12:00:00 AM EDT [facility] ([facility], ) Name Value Range Interpretation Description Data Sup porting Code Source(s) Document(s ) Deprecated 2.4 mg/dL Below low normal MEDGEN (St Phosphorus Juan C's [Mass/time] in [facility]) 24 hour Urine ID Date Data Source [id number] 05/01/2020 12:00:00 AM EDT MEDGEN ([facility]) Name Value Range Interpretation Description Data Sup porting Code Source(s) Document(s ) Vitamin D, 29.4 Below low normal MEDGEN (St 25-Hydroxy ng/mL [facility]) ID Date Data Source [id number] 05/01/2020 12:00:00 AM EDT MEDGEN (St [facility], ) Name Value Range Interpretation Code Description Data Supporting Source(s) Document(s ) Creatinine 77.9 mg/dL Normal (applies to MEDGEN (S t , Urine non-numeric Juan C's results) [facility]) Protein,To 227.0 Normal (applies to MEDGEN (St ruth,Urine mg/dL non-numeric Juan C's results) [facility]) Protein/Cr 2914 mg/g Above high normal MEDGEN (St eat Ratio creat [facility]) ID Date Data Source [id number] 05/01/2020 12:00:00 AM EDT MEDGEN ([facility], ) Name Value Range Interpretation Description Data Sup porting Code Source(s) Document(s ) Iron 270 ug/dL Normal (applies to MEDGEN (St Bind.Cap.(TIBC non-numeric Juan C's ) results) [facility]) UIBC 231 ug/dL Normal (applies to MEDGEN (St non-numeric Juan C's results) [facility]) Iron 39 ug/dL Normal (applies to MEDGEN (St [Mass/volume] non-numeric Juan C's in Serum or results) [facility], ) Plasma Iron 14 % Below low normal MEDGEN (St saturation Juan C's [Mass [facility], ) Fraction] in Serum or Plasma ID Date Data Source [id number] 05/01/2020 12:00:00 AM EDT MEDGEN ([facility], ) Name Value Range Interpretation Description [...] results) Medical, ) ID Date Data Source [id number] 05/01/2020 12:00:00 AM EDT MEDGEN ([facility] [...] by Light microscopy ID Date Data Source [id number] 05/01/2020 12:00:00 AM EDT MEDGEN ([facility], ) Name Value Range Interpretation Description [...] [Interpretation] in mg/dL normal Juan C's Urine [facility], ) eGFR If NonAfricn 13 Below low normal MEDGE N (St Am mL/min/[address], ) eGFR If Africn Am 15 Below low normal MEDGE N (St mL/min/1 [facility], ) BUN/Creatinine 9 Below low normal MEDGEN ( St Ratio [facility], ) Sodium 138 Normal (applies MEDGEN (St [Moles/volume] in mmol/L to non-numeric Juan C's Serum or Plasma results) Medical, ) Potassium 5.1 Normal (applies MEDGEN (St [Mass/volume] in mmol/L to non-numeric Juan C's Blood results) Medical, ) Chloride 108 Above high MEDGEN (St [Moles/volume] in mmol/L normal Juan C's Serum or Plasma [facility], ) Carbon dioxide, 19 Below low [...] 4.7 g/dL Above high MEDGEN (St normal [facility], ) A/G Ratio 0.8 Below low normal MEDGEN ([facility]) Bilirubin.total 0.4 Normal (applies MEDGEN ( St [Mass/volume] in mg/dL to non-numeric Juan C's Serum or Plasma results) [facility]) Alkaline 86 IU/L Normal (applies MEDGEN (St [...] Serum or Plasma ID Date Data Source [id number] 05/01/2020 12:00:00 AM EDT MEDGEN ( [facility], ) Name Value Range Interpretation Description Data Sup porting Code Source(s) Document(s ) Leukocytes 13.3 Above high normal MEDGEN (St [#/volume] in x10E3/uL Juan C's Blood by [facility]) Automated count Erythrocytes 2.72 Below lower panic MEDGEN (S t [#/volume] in x10E6/uL limits Juan C's Blood by [facility]) Automated count Hemoglobin 9.1 g/dL Below low normal MEDGEN (St [Mass/volume] in Juan C's Blood [facility]) Hematocrit 27.8 % Below low normal MEDGEN (St [Volume Juan C's Fraction] of [facility]) Blood by Automated count MCV 102 fL Above high normal MEDGEN ([facility], ) MCH 33.5 pg Above high normal MEDGEN ([facility]) MCHC 32.7 Normal (applies MEDGEN (St g/dL to non-numeric [facility] results) [facility]) RDW 18.4 % Above high normal MEDGEN ([facility]) Platelets 230 Normal (applies MEDGEN (St [#/area] in x10E3/uL to non-numeric Juan C's Blood by results) [facility]) Microscopy high power field Neutrophils [#] 49 % Normal (applies MEDGEN ( St in Body fluid by to non-numeric Juan C's Manual count results) [facility], ) Lymphs 33 % Normal (applies MEDGEN (St to non-numeric Juan C's results) [facility]) Monocytes 8 % Normal (applies MEDGEN (St [#/volume] in to non-numeric Juan C's Cord blood results) [facility]) Eos 4 % Normal (applies MEDGEN (St to non-numeric Juan C's results) [facility]) Basos 0 % Normal (applies MEDGEN (St to non-numeric Juan C's results) [facility]) Immature cells Note Normal (applies MEDGEN (S t [#/volume] in to non-numeric Juan C's Blood results) [facility]) Neutrophils 6.5 Normal (applies MEDGEN (St (Absolute) x10E3/uL to non-numeric Juan C's results) [facility]) Lymphs 4.4 Above high normal MEDGEN (St (Absolute) x10E3/uL Juan C's [facility], ) Monocytes(Absolu 1.1 Above high normal MEDGE N (St te) x10E3/uL [facility]) Eos (Absolute) 0.5 Above high normal MEDGEN (St x10E3/uL Juan C's [facility], ) Baso (Absolute) 0.0 Normal (applies MEDGEN ( St x10E3/uL to non-numeric Juan C's results) [facility]) NRBC 8 % Above high normal MEDGEN ([facility], ) Hematology Note: Normal (applies MEDGEN (St Comments: to non-numeric Juan C's results) [facility]) ID Date Data Source [id number] 05/01/2020 12:00:00 AM EDT MEDGEN ([facility], ) Name Value Range Interpretation Description Data Sup porting Code Source(s) Document(s ) Metamyelocytes [#] 2 % Above high normal MED GEN (St in Body fluid by Juan C's Manual count [facility], ) Myelocytes [#] in 4 % Above high normal MEDG EN (St Body fluid by Juan C's Manual count [facility], ) ID Date Data Source [id number] 05/01/2020 12:00:00 AM EDT MEDGEN ([facility], ) Name Value Range Interpretation Code Description Data Supporting Source(s) Document(s ) Ferritin, 191 ng/mL Normal (applies to MEDGEN (St Serum non-numeric Juan C's results) [facility], ) ID Date Data Source [id number] 05/01/2020 12:00:00 AM EDT MEDGEN ([facility], ) Name Value Range Interpretation Description Data Sup porting Code Source(s) Document(s ) Deprecated 2.4 mg/dL Below low normal MEDGEN (St Phosphorus Juan C's [Mass/time] in [facility], ) 24 hour Urine ID Date Data Source [id number] 05/01/2020 12:00:00 AM EDT MEDGEN ([facility], ) Name Value Range Interpretation Description Data Sup porting Code Source(s) Document(s ) Vitamin D, 29.4 Below low normal MEDGEN (St 25-Hydroxy ng/mL [facility], ) ID Date Data Source [id number] 05/01/2020 12:00:00 AM EDT MEDGEN ([facility], ) Name Value Range Interpretation Code Description Data Supporting Source(s) Document(s ) Creatinine 77.9 mg/dL Normal (applies to MEDGEN (S t , Urine non-numeric Juan C's results) [facility], ) Protein,To 227.0 Normal (applies to MEDGEN (St ruth,Urine mg/dL non-numeric Juan C's results) [facility], ) Protein/Cr 2914 mg/g Above high normal MEDGEN (St eat Ratio creat [facility], ) ID Date Data Source [id number] 05/01/2020 12:00:00 AM EDT MEDGEN ([facility], ) Name Value Range Interpretation Description Data Sup porting Code Source(s) Document(s ) Iron 270 ug/dL Normal (applies to MEDGEN (St Bind.Cap.(TIBC non-numeric Juan C's ) results) [facility], ) UIBC 231 ug/dL Normal (applies to MEDGEN (St non-numeric Juan C's results) [facility], ) Iron 39 ug/dL Normal (applies to MEDGEN (St [Mass/volume] non-numeric Juan C's in Serum or results) [facility], ) Plasma Iron 14 % Below low normal MEDGEN (St saturation Juan C's [Mass [facility], ) Fraction] in Serum or Plasma ID Date Data Source [id number] 05/01/2020 12:00:00 AM EDT MEDGEN ([facility] [...] results) Medical, PC) ID Date Data Source [id number] 05/01/2020 12:00:00 AM EDT MEDGEN ([facility] [...] by Light microscopy ID Date Data Source [id number] 05/01/2020 12:00:00 AM EDT MEDGEN ([facility], ) Name Value Range Interpretation Description Data Sup porting Code Source(s) Document(s ) Glucose 90 mg/dL Normal (applies MEDGEN (St [Mass/volume] in to non-numeric Juan C's Urine collected for results) Medical, unspecified ) duration Urea nitrogen 37 mg/dL Above high MEDGEN (St [Mass/volume] in normal Juan C's Serum or Plasma [facility], ) Creatinine 4.28 Above high MEDGEN (St [Interpretation] in mg/dL normal Juan C's Urine [facility], ) eGFR If NonAfricn 13 Below low normal MEDGE N (St Am mL/min/1 [facility] [address] [place] [address], ) eGFR If Africn Am 15 Below low normal MEDGE N (St mL/min/1 [facility] .73 [facility], ) BUN/Creatinine 9 Below low normal MEDGEN ( St Ratio [facility], ) Sodium 138 Normal (applies MEDGEN (St [Moles/volume] in mmol/L to non-numeric Juan C's Serum or Plasma results) Medical, ) Potassium 5.1 Normal (applies MEDGEN (St [Mass/volume] in mmol/L to non-numeric Juan C's Blood results) Medical, ) Chloride 108 Above high MEDGEN (St [Moles/volume] in mmol/L normal Juan C's Serum or Plasma [facility], ) Carbon dioxide, 19 Below low [...] non-numeric Juan C's Urine collected for results) [facility], unspecified ) duration Globulin, Total 4.7 g/dL Above high MEDGEN ([facility], ) A/G Ratio 0.8 Below low normal MEDGEN ([facility], ) Bilirubin.total 0.4 Normal (applies MEDGEN ( St [Mass/volume] in mg/dL to non-numeric Juan C's Serum or Plasma results) [facility], ) Alkaline 86 IU/L Normal (applies [...] Serum or Plasma ID Date Data Source [id number] 05/01/2020 12:00:00 AM EDT [facility] ([facility], ) Name Value Range Interpretation Description Data Sup porting Code Source(s) Document(s ) Leukocytes 13.3 Above high normal MEDGEN (St [#/volume] in x10E3/uL Juan C's Blood by [facility], ) Automated count Erythrocytes 2.72 Below lower panic MEDGEN (S t [#/volume] in x10E6/uL limits Juan C's Blood by [facility], ) Automated count Hemoglobin 9.1 g/dL Below low normal MEDGEN (St [Mass/volume] in [facility] Blood [facility], ) Hematocrit 27.8 % Below low normal MEDGEN (St [Volume Juan C's Fraction] of [facility], ) Blood by Automated count MCV 102 fL Above high normal MEDGEN ([facility], ) MCH 33.5 pg Above high normal MEDGEN ([facility], ) MCHC 32.7 Normal (applies MEDGEN (St g/dL to non-numeric Juan C's results) [facility], ) RDW 18.4 % Above high normal MEDGEN ([facility], ) Platelets 230 Normal (applies MEDGEN (St [#/area] in x10E3/uL to non-numeric Juan C's Blood by results) [facility]) Microscopy high power field Neutrophils [#] 49 % Normal (applies MEDGEN ( St in Body fluid by to non-numeric Juan C's Manual count results) [facility]) Monocytes 8 % Normal (applies MEDGEN (St [#/volume] in to non-numeric Juan C's Cord blood results) [facility]) Lymphs 33 % Normal (applies MEDGEN (St to non-numeric Juan C's results) [facility]) Eos 4 % Normal (applies MEDGEN (St to non-numeric Juan C's results) [facility]) Basos 0 % Normal (applies MEDGEN (St to non-numeric Juan C's results) [facility]) Immature cells Note Normal (applies MEDGEN (S t [#/volume] in to non-numeric Juan C's Blood results) [facility]) Neutrophils 6.5 Normal (applies MEDGEN (St (Absolute) x10E3/uL to non-numeric Juan C's results) [facility]) Lymphs 4.4 Above high normal MEDGEN (St (Absolute) x10E3/uL Juan C's [facility]) Eos (Absolute) 0.5 Above high normal MEDGEN (St x10E3/uL Juan C's [facility]) Monocytes(Absolu 1.1 Above high normal MEDGE N (St te) x10E3/uL [facility]) Baso (Absolute) 0.0 Normal (applies MEDGEN ( St x10E3/uL to non-numeric Juan C's results) [facility]) NRBC 8 % Above high normal MEDGEN ([facility], ) Hematology Note: Normal (applies MEDGEN (St Comments: to non-numeric Juan C's results) [facility]) ID Date Data Source [id number] 05/01/2020 12:00:00 AM EDT MEDGEN ([facility], ) Name Value Range Interpretation Description Data Sup porting Code Source(s) Document(s ) Metamyelocytes [#] 2 % Above high normal MED GEN (St in Body fluid by Juan C's Manual count [facility], ) Myelocytes [#] in 4 % Above high normal MEDG EN (St Body fluid by Juan C's Manual count [facility], ) ID Date Data Source [id number] 05/01/2020 12:00:00 AM EDT MEDGEN ([facility], ) Name Value Range Interpretation Code Description Data Supporting Source(s) Document(s ) Ferritin, 191 ng/mL Normal (applies to MEDGEN (St Serum non-numeric Juan C's results) Medical, ) ID Date Data Source [id number] 05/01/2020 12:00:00 AM EDT MEDGEN ([facility], ) Name Value Range Interpretation Description Data Sup porting Code Source(s) Document(s ) Deprecated 2.4 mg/dL Below low normal MEDGEN (St Phosphorus Juan C's [Mass/time] in Medical, ) 24 hour Urine ID Date Data Source [id number] 05/01/2020 12:00:00 AM EDT [facility] (St [facility], ) Name Value Range Interpretation Description Data Sup porting Code Source(s) Document(s ) Vitamin D, 29.4 Below low normal MED[facility] (St 25-Hydroxy ng/mL [facility], ) ID Date Data Source [id number] 05/01/2020 12:00:00 AM EDT [facility] ([facility], ) Name Value Range Interpretation Code Description Data Supporting Source(s) Document(s ) Creatinine 77.9 mg/dL Normal (applies to MEDGEN (S t , Urine non-numeric [facility] results) Medical, ) Protein,To 227.0 Normal (applies to [facility] (St ruth,Urine mg/dL non-numeric [facility] results) Medical, ) Protein/Cr 2914 mg/g Above high normal MED[facility] (St eat Ratio creat [facility], ) ID Date Data Source [id number] 05/01/2020 12:00:00 AM EDT [facility] ([facility], ) Name Value Range Interpretation Description [...] to non-numeric [facility] Urine collected results) [facility], for unspecified PC) duration Ketones Negative [...] (S t to non-numeric [facility] results) [facility], ) Microscopic See below: Normal (applies MED[facility] (St Examination to non-numeric [facility] results) [facility], ) ID Date Data Source [id number] 05/01/2020 12:00:00 AM EDT [facility] (St [facility], ) Name Value Range Interpretation Description Data Sup porting Code Source(s) Document(s ) Glucose 90 mg/dL Normal (applies MED[facility] (St [Mass/volume] in to non-numeric [facility] Urine collected for results) Medical, unspecified ) duration Urea nitrogen 37 mg/dL Above high MEDGEN (St [Mass/volume] in normal [facility] Serum or Plasma [facility], ) eGFR If NonAfricn 13 Below low normal MEDGE N (St Am mL/min/1 [facility] [address], ) Creatinine 4.28 Above high MEDGEN (St [Interpretation] in mg/dL normal [facility] Urine [facility], ) eGFR If Africn Am 15 Below low normal MEDGE N (St mL/min/1 [facility] .73 [facility], ) BUN/Creatinine 9 Below low normal MEDGEN ( St Ratio [facility], ) Sodium 138 Normal (applies [facility]GEN (St [Moles/volume] in mmol/L to non-numeric [facility] Serum or Plasma results) Medical, ) Potassium 5.1 Normal (applies [facility] (St [Mass/volume] in mmol/L to non-numeric [facility] Blood results) Medical, ) Chloride 108 Above high MEDGEN (St [Moles/volume] in mmol/L normal [facility] Serum or Plasma [facility], ) Carbon dioxide, 19 Below low normal MED[facility] (St total mmol/L [facility] [Moles/volume] in Medical, Serum or Plasma PC) Calcium 7.4 Below low normal [facility] (St [Moles/volume] in mg/dL [facility] Urine collected for Medical, unspecified PC) duration Protein 8.5 g/dL Normal (applies [facility] (St [Mass/volume] in to non-numeric [facility] Serum or Plasma results) [facility], ) Microalbumin 3.8 g/dL Normal (applies MEDGEN (St [Mass/time] in to non-numeric [facility] Urine collected for results) Medical, unspecified ) duration Globulin, Total 4.7 g/dL Above high [facility] (St normal [facility], ) A/G Ratio 0.8 Below low normal [facility] ([facility], ) Bilirubin.total 0.4 Normal (applies MEDGEN ( St [Mass/volume] in mg/dL to non-numeric [facility] Serum or Plasma results) [facility], ) Alkaline 86 IU/L Normal (applies [...] Serum or Plasma ID Date Data Source [id number] 05/01/2020 12:00:00 AM EDT [facility] (St [facility], ) Name Value Range Interpretation Description Data Sup porting Code Source(s) Document(s ) Leukocytes 13.3 Above high normal [facility] (St [#/volume] in x10E3/uL [facility] Blood by [facility], ) Automated count Erythrocytes 2.72 Below lower panic MEDGEN (S t [#/volume] in x10E6/uL limits [facility] Blood by [facility]) Automated count Hemoglobin 9.1 g/dL Below low normal [facility] (St [Mass/volume] in [facility] Blood [facility]) Hematocrit 27.8 % Below low normal [facility] (St [Volume Juan C's Fraction] of [facility]) Blood by Automated count MCV 102 fL Above high normal [facility] ([facility], ) MCH 33.5 pg Above high normal [facility] ([facility], ) MCHC 32.7 Normal (applies MEDGEN (St g/dL to non-numeric [facility] results) [facility]) RDW 18.4 % Above high normal [facility] ([facility]) Platelets 230 Normal (applies MEDGEN (St [#/area] in x10E3/uL to non-numeric [facility] Blood by results) [facility]) Microscopy high power field Neutrophils [#] 49 % Normal (applies [facility] ( St in Body fluid by to non-numeric [facility] Manual count results) [facility]) Lymphs 33 % Normal (applies [facility] (St to non-numeric [facility] results) [facility]) Monocytes 8 % Normal (applies [facility] (St [#/volume] in to non-numeric [facility] Cord blood results) [facility]) Eos 4 % Normal (applies [facility] (St to non-numeric [facility] results) [facility]) Basos 0 % Normal (applies [facility] (St to non-numeric [facility]'s results) [facility]) Immature cells Note Normal (applies MEDGEN (S t [#/volume] in to non-numeric [facility] Blood results) [facility]) Neutrophils 6.5 Normal (applies [facility] (St (Absolute) x10E3/uL to non-numeric [facility] results) [facility]) Lymphs 4.4 Above high normal [facility] (St (Absolute) x10E3/uL [facility]) Monocytes(Absolu 1.1 Above high normal MEDGE N (St te) x10E3/uL [facility]) Eos (Absolute) 0.5 Above high normal [facility] (St x10E3/uL [facility]) Baso (Absolute) 0.0 Normal (applies [facility] ( St x10E3/uL to non-numeric [facility] results) [facility], ) NRBC 8 % Above high normal [facility] ([facility], ) Hematology Note: Normal (applies [facility] (St Comments: to non-numeric [facility] results) [facility], ) ID Date Data Source [id number] 05/01/2020 12:00:00 AM EDT [facility] ([facility], ) Name Value Range Interpretation Description Data Sup porting Code Source(s) Document(s ) Myelocytes [#] in 4 % Above high normal MEDG EN (St Body fluid by [facility] Manual count [facility], ) Metamyelocytes [#] 2 % Above high normal MED GEN (St in Body fluid by [facility] Manual count [facility], ) ID Date Data Source [id number] 05/01/2020 12:00:00 AM EDT [facility] ([facility], ) Name Value Range Interpretation Code Description Data Supporting Source(s) Document(s ) Ferritin, 191 ng/mL Normal (applies to [facility] (St Serum non-numeric [facility]'s results) [facility], ) ID Date Data Source [id number] 05/01/2020 12:00:00 AM EDT [facility] ([facility], ) Name Value Range Interpretation Description Data Sup porting Code Source(s) Document(s ) Deprecated 2.4 mg/dL Below low normal [facility] (St Phosphorus [facility] [Mass/time] in [facility], ) 24 hour Urine ID Date Data Source [id number] 05/01/2020 12:00:00 AM EDT [facility] (St [facility], ) Name Value Range Interpretation Description Data Sup porting Code Source(s) Document(s ) Vitamin D, 29.4 Below low normal [facility] (St 25-Hydroxy ng/mL [facility], ) ID Date Data Source [id number] 05/01/2020 12:00:00 AM EDT [facility] (St [facility], ) Name Value Range Interpretation Code Description Data Supporting Source(s) Document(s ) Creatinine 77.9 mg/dL Normal (applies to [facility] (S t , Urine non-numeric [facility] results) [facility], ) Protein,To 227.0 Normal (applies to [facility] (St ruth,Urine mg/dL non-numeric [facility] results) Medical, ) Protein/Cr 2914 mg/g Above high normal [facility] (St eat Ratio creat [facility], ) ID Date Data Source [id number] 05/01/2020 12:00:00 AM EDT [facility], ) Name Value Range Interpretation [...] normal [facility] (St saturation [facility]'s [Mass [facility], ) Fraction] in Serum or Plasma ID Date Data Source [id number] 05/01/2020 12:00:00 AM EDT [facility], ) Name Value Range Interpretation [...] results) Medical, PC) ID Date Data Source [id number] 05/01/2020 12:00:00 AM EDT [facility] (St Julienne [...] by Light microscopy ID Date Data Source [id number] 05/01/2020 12:00:00 AM EDT [facility] (St Julienne [...] Below low normal [facility] ( St Ratio [facility], ) Sodium 138 Normal (applies [facility] (St [Moles/volume] in mmol/L to non-numeric [facility] Serum or Plasma results) [facility], ) Potassium 5.1 Normal (applies [facility] (St [Mass/volume] in mmol/L to non-numeric [facility] Blood results) [facility], ) Chloride 108 Above high [facility] (St [Moles/volume] in mmol/L normal [facility] C[facility] Serum or Plasma [facility], ) Carbon dioxide, 19 Below low normal [facility] (St total mmol/L [facility] [Moles/volume] in Medical, Serum or Plasma PC) Calcium 7.4 Below low normal [facility] (St [Moles/volume] in mg/dL [facility] Urine collected for Medical, unspecified PC) duration Protein 8.5 g/dL Normal (applies [facility] (St [Mass/volume] in to non-numeric [facility] Serum or Plasma results) [facility], ) Microalbumin 3.8 g/dL Normal (applies [facility] (St [Mass/time] in to non-numeric [facility] Urine collected for results) [facility], unspecified ) duration Globulin, Total 4.7 g/dL Above high [facility] (St normal [facility], ) A/G Ratio 0.8 Below low normal [facility] ([facility], ) Bilirubin.total 0.4 Normal (applies [facility] ( St [Mass/volume] in mg/dL to non-numeric [facility] Serum or Plasma results) [facility], ) Alkaline 86 IU/L Normal (applies [...] Serum or Plasma ID Date Data Source [id number] 05/01/2020 12:00:00 AM EDT [facility] ([facility], ) Name Value Range Interpretation Description Data Sup porting Code Source(s) Document(s ) Leukocytes 13.3 Above high normal [facility] (St [#/volume] in x10E3/uL [facility] Blood by [facility]) Automated count Erythrocytes 2.72 Below lower panic MEDGEN (S t [#/volume] in x10E6/uL limits [facility] Blood by [facility]) Automated count Hemoglobin 9.1 g/dL Below low normal [facility] (St [Mass/volume] in Juan C's Blood [facility]) Hematocrit 27.8 % Below low normal [facility] (St [Volume Juan C's Fraction] of [facility], ) Blood by Automated count MCV 102 fL Above high normal [facility] ([facility], ) MCH 33.5 pg Above high normal [facility] ([facility]) MCHC 32.7 Normal (applies [facility] (St g/dL to non-numeric Juan C's results) [facility]) RDW 18.4 % Above high normal [facility] ([facility], ) Platelets 230 Normal (applies [facility] (St [#/area] in x10E3/uL to non-numeric [facility] Blood by results) [facility]) Microscopy high power field Neutrophils [#] 49 % Normal (applies [facility] ( St in Body fluid by to non-numeric [facility] C's Manual count results) [facility]) Lymphs 33 % Normal (applies [facility] (St to non-numeric Juan C's results) [facility]) Monocytes 8 % Normal (applies [facility] (St [#/volume] in to non-numeric Juan C's Cord blood results) [facility]) Eos 4 % Normal (applies [facility] (St to non-numeric Juan C's results) [facility]) Basos 0 % Normal (applies [facility]GEN (St to non-numeric [facility] C's results) [facility]) Immature cells Note Normal (applies MEDGEN (S t [#/volume] in to non-numeric [facility] Blood results) [facility]) Neutrophils 6.5 Normal (applies MEDGEN (St (Absolute) x10E3/uL to non-numeric [facility] C's results) [facility]) Lymphs 4.4 Above high normal [facility] (St (Absolute) x10E3/uL [facility]) Monocytes(Absolu 1.1 Above high normal MEDGE N (St te) x10E3/uL [facility], ) Eos (Absolute) 0.5 Above high normal [facility] (St x10E3/uL [facility], ) Baso (Absolute) 0.0 Normal (applies MEDGEN ( St x10E3/uL to non-numeric Juan C's results) [facility], ) NRBC 8 % Above high normal [facility] ([facility], ) Hematology Note: Normal (applies [facility] (St Comments: to non-numeric Juan C's results) [facility], ) ID Date Data Source [id number] 05/01/2020 12:00:00 AM EDT [facility] ([facility], ) Name Value Range Interpretation Description Data Sup porting Code Source(s) Document(s ) Metamyelocytes [#] 2 % Above high normal MED GEN (St in Body fluid by [facility] Manual count [facility], ) Myelocytes [#] in 4 % Above high normal MEDG EN (St Body fluid by [facility] Manual count [facility], ) ID Date Data Source [id number] 05/01/2020 12:00:00 AM EDT [facility] ([facility], ) Name Value Range Interpretation Code Description Data Supporting Source(s) Document(s ) Ferritin, 191 ng/mL Normal (applies to [facility] (St Serum non-numeric Juan C's results) [facility], ) ID Date Data Source [id number] 05/01/2020 12:00:00 AM EDT [facility] ([facility], ) Name Value Range Interpretation Description Data Sup porting Code Source(s) Document(s ) Deprecated 2.4 mg/dL Below low normal [facility] (St Phosphorus [facility] [Mass/time] in [facility], ) 24 hour Urine ID Date Data Source [id number] 05/01/2020 12:00:00 AM EDT [facility] ([facility], ) Name Value Range Interpretation Description Data Sup porting Code Source(s) Document(s ) Vitamin D, 29.4 Below low normal [facility] (St 25-Hydroxy ng/mL [facility], ) ID Date Data Source [id number] 05/01/2020 12:00:00 AM EDT [facility] (St Julienne [...] MEDGEN (St eat Ratio creat [facility], ) ID Date Data Source [id number] 05/01/2020 12:00:[address] [facility] [place] Name Value Range Interpretation [...] Serum or Plasma ID Date Data Source [id number] 05/01/2020 12:00:[address] [facility] [place] Name Value Range Interpretation [...] results) Medical, ) ID Date Data Source [id number] 05/01/2020 12:00:00 AM EDT [facility] ([facility], ) Name Value Range Interpretation Description [...] by Light microscopy ID Date Data Source [id number] 05/01/2020 12:00:00 AM EDT [facility] ([facility], ) Name Value Range Interpretation Description [...] [Interpretation] in mg/dL normal Juan C's Urine [facility], ) eGFR If Africn Am 15 Below low normal MEDGE N (St mL/min/1 [facility]'s .73 [facility], ) BUN/Creatinine 9 Below low normal [facility] ( St Ratio Juan C's [facility], ) Sodium 138 Normal (applies [facility] (St [Moles/volume] in mmol/L to non-numeric [facility] C's Serum or Plasma results) Medical, ) Potassium 5.1 Normal (applies [facility] (St [Mass/volume] in mmol/L to non-numeric [facility] C[facility] Blood results) [facility], ) Chloride 108 Above high [facility] (St [Moles/volume] in mmol/L normal [facility] C's Serum or Plasma [facility], ) Carbon dioxide, 19 Below low [...] non-numeric [facility] Serum or Plasma results) [facility], ) Globulin, Total 4.7 g/dL Above high [facility] (St normal [facility], ) A/G Ratio 0.8 Below low normal [facility] ([facility], ) Alkaline 86 IU/L Normal (applies [...] Serum or Plasma ID Date Data Source [id number] 05/01/2020 12:00:00 AM EDT [facility] ([facility], ) Name Value Range Interpretation Description Data Sup porting Code Source(s) Document(s ) Leukocytes 13.3 Above high normal [facility] (St [#/volume] in x10E3/uL [facility] Blood by [facility], ) Automated count Hemoglobin 9.1 g/dL Below low normal [facility] (St [Mass/volume] in [facility] Blood [facility]) Erythrocytes 2.72 Below lower panic MEDGEN (S t [#/volume] in x10E6/uL limits Juan C's Blood by [facility]) Automated count Hematocrit 27.8 % Below low normal [facility] (St [Volume Juan C's Fraction] of [facility]) Blood by Automated count MCV 102 fL Above high normal [facility] ([facility], ) MCH 33.5 pg Above high normal [facility] ([facility], ) MCHC 32.7 Normal (applies [facility]GEN (St g/dL to non-numeric Juan C's results) [facility]) RDW 18.4 % Above high normal [facility] ([facility], ) Platelets 230 Normal (applies MEDGEN (St [#/area] in x10E3/uL to non-numeric [facility] C's Blood by results) [facility]) Microscopy high power field Neutrophils [#] 49 % Normal (applies MEDGEN ( St in Body fluid by to non-numeric [facility] C's Manual count results) [facility]) Lymphs 33 % Normal (applies [facility]GEN (St to non-numeric Juan C's results) [facility]) Monocytes 8 % Normal (applies MEDGEN (St [#/volume] in to non-numeric Juan C's Cord blood results) [facility]) Eos 4 % Normal (applies MEDGEN (St to non-numeric [facility] C's results) [facility]) Basos 0 % Normal (applies MEDGEN (St to non-numeric [facility] C's results) [facility]) Neutrophils 6.5 Normal (applies MEDGEN (St (Absolute) x10E3/uL to non-numeric Juan C's results) [facility]) Immature cells Note Normal (applies MEDGEN (S t [#/volume] in to non-numeric [facility] C[facility] Blood results) [facility]) Lymphs 4.4 Above high normal MEDGEN (St (Absolute) x10E3/uL [facility], ) Monocytes(Absolu 1.1 Above high normal MEDGE N (St te) x10E3/uL [facility], ) Baso (Absolute) 0.0 Normal (applies MEDGEN ( St x10E3/uL to non-numeric Juan C's results) [facility], ) Eos (Absolute) 0.5 Above high normal MED[facility] (St x10E3/uL [facility], ) NRBC 8 % Above high normal [facility] ([facility], ) Hematology Note: Normal (applies MEDGEN (St Comments: to non-numeric Juan C's results) [facility], ) ID Date Data Source [id number] 05/01/2020 12:00:00 AM EDT [facility] ([facility], ) Name Value Range Interpretation Description Data Sup porting Code Source(s) Document(s ) Metamyelocytes [#] 2 % Above high normal MED GEN (St in Body fluid by [facility] Manual count [facility], ) Myelocytes [#] in 4 % Above high normal MEDG EN (St Body fluid by Juan C's Manual count [facility], ) ID Date Data Source [id number] 04/28/2020 12:00:00 AM EDT [facility] ([facility], ) Name Value Range Interpretation Code Description Data Lisa rce(s) Supporting Document(s ) URIC ACID 5.0 mg/dL Normal (applies to [facility] (St non-numeric Juan C's results) [facility], ) ID Date Data Source [id number] 04/28/2020 12:00:00 AM EDT [facility] ([facility], ) Name Value Range Interpretation Description Data Sup porting Code Source(s) Document(s ) Glucose 92 mg/dL Normal (applies MEDGEN (St [Mass/volume] in to non-numeric Juan C's Urine collected results) [facility], ) for unspecified duration Sodium 133 Below low normal [facility] (St [Moles/volume] mmol/L Juan C's in Serum, Plasma [facility], ) or Blood Potassium 5.2 Normal (applies MEDGEN (St [Mass/volume] in mmol/L to non-numeric [facility] Blood results) [facility], ) Chloride 109 Normal (applies MEDGEN (St [Moles/volume] mmol/L to non-numeric Juan C's in Serum, Plasma results) [facility]) or Blood Urea nitrogen 36 mg/dL Above high normal [facility] ( St [Moles/volume] Juan C's in Blood [facility]) Carbon dioxide 20 Normal (applies MEDGEN (S t [VFr/PPres] in mmol/L to non-numeric Juan C's Gas delivery results) [facility]) system Creatinine 4.78 Above high normal [facility]GEN (St [Interpretation] mg/dL Juan C's in Urine [facility]) BUN/CREATININE 8 (calc) Normal (applies MEDGEN (S t RATIO to non-numeric Juan C's results) [facility]) Calcium 7.6 Below low normal [facility] (St [Moles/volume] mg/dL [facility] C's in Urine [facility]) collected for unspecified duration PROTEIN, TOTAL 8.1 g/dL Normal (applies [facility]GEN (S t to non-numeric Juan C's results) [facility]) Globulin 4.6 g/dL Above high normal [facility] (St [Mass/time] in (calc) Juan C's 24 hour Urine [facility]) Microalbumin 3.5 g/dL Below low normal [facility] (St [Mass/time] in [facility] Urine collected [facility]) for unspecified duration ALBUMIN/GLOBULIN 0.8 Below low normal [facility] (St RATIO (calc) [facility]) BILIRUBIN,TOTAL 0.3 Normal (applies MEDGEN ( St mg/dL to non-numeric Juan C's results) [facility]) Alkaline 71 U/L Normal (applies MEDGEN (St phosphatase to non-numeric Juan C's [Enzymatic results) [facility]) activity/volume] in Serum, Plasma or Blood AST 37 U/L Above high normal [facility] ([facility], ) ALT 36 U/L Normal (applies [facility]GEN (St to non-numeric Juan C's results) [facility]) EGFR 13 Below low normal [facility] (St HUNGARIAN mL/min/1 Juan C's .73m2 [facility]) EGFR NON AFR 11 Below low normal [facility] (St HUNGARIAN mL/min/1 Juan C's .73m2 [facility]) ID Date Data Source [id number] 04/28/2020 12:00:00 AM EDT [facility] ([facility] Name Value Range Interpretation Description Data Sup porting Code Source(s) Document(s ) VITAMIN 30 ng/mL Normal (applies to MED[facility] (St D,25-OH,TOTA non-numeric Juan C's L,IA results) Medical, PC) ID Date Data Source [id number] 04/28/2020 12:00:00 AM EDT [facility] (St [facility] [...] Light PC) microscopy ID Date Data Source [id number] 04/28/2020 12:00:00 AM EDT [facility] (St Julienne [...] 355 Above high normal MEDGE N (St [place]EL[place] cells/uL [facility], ) METAMYELOCYTES,A 278 Above high normal MEDGE N (St BSOLUTE cells/uL [facility]) NUCLEATED RBC 3 /100 Above high normal [facility] ( St WBC [facility] [facility]) NUCLEATED 278 Above high normal MEDGEN (St RBC,ABSOLUTE cells/uL [facility]) MORPHOLOGICAL Normal (applies MEDGEN (St REVIEW to non-numeric Juan C's results) [facility]) ID Date Data Source [id number] 04/28/2020 12:00:00 AM EDT MEDGEN ([facility]) Name Value Range Interpretation Description Data Sup porting Code Source(s) Document(s ) WBC 11.1 Above high normal MEDGEN (St Thousand [facility]) RBC 2.50 Below low normal MEDGEN (St Million/ [facility]) Hemoglobin 8.3 g/dL Below low normal MEDGEN (St [Mass/volume] in [facility] Mixed venous [facility]) blood by Oximetry Hematocrit [Pure 24.9 % Below low normal MEDGEN (St volume fraction] [facility] of Blood by [facility]) Automated count MCV 99.6 fL Normal (applies MEDGEN (St to non-numeric Juan C's results) [facility]) MCH 33.2 pg Above high normal MEDGEN ([facility]) MCHC 33.3 Normal (applies MEDGEN (St g/dL to non-numeric Juan C's results) [facility]) RDW 18.2 % Above high normal MEDGEN ([facility]) PLATELET COUNT 214 Normal (applies MEDGEN (S t Thousand to non-numeric Juan C's /uL results) [facility]) MPV 10.1 fL Normal (applies MEDGEN (St to non-numeric Juan C's results) [facility]) DIFFERENTIAL Normal (applies MEDGEN (St to non-numeric Juan C's results) [facility]) ID Date Data Source [id number] 04/28/2020 12:00:00 AM EDT MEDGEN ([facility]) Name Value Range Interpretation Description Data Sup porting Code Source(s) Document(s ) PHOSPHATE ( 2.5 mg/dL Normal (applies to MEDGEN (St PHOSPHORUS) non-numeric Juan C's results) [facility]) ID Date Data Source [id number] 04/28/2020 12:00:00 AM EDT MEDGEN ([facility]ienne [facility], ) Name Value Range Interpretation Code Description Data Lisa rce(s) Supporting Document(s ) URIC ACID 5.0 mg/dL Normal (applies to MEDGEN (St non-numeric Juan C's results) [facility], ) ID Date Data Source [id number] 04/28/2020 12:00:00 AM EDT MEDGEN ([facility], ) Name Value Range Interpretation Description Data Sup porting Code Source(s) Document(s ) Glucose 92 mg/dL Normal (applies MEDGEN (St [Mass/volume] in to non-numeric Juan C's Urine collected results) [facility], ) for unspecified duration Sodium 133 Below low normal MEDGEN (St [Moles/volume] mmol/L Juan C's in Serum, Plasma [facility], ) or Blood Potassium 5.2 Normal (applies MEDGEN (St [Mass/volume] in mmol/L to non-numeric Juan C's Blood results) [facility], ) Chloride 109 Normal (applies MEDGEN (St [Moles/volume] mmol/L to non-numeric Juan C's in Serum, Plasma results) [facility]) or Blood Carbon dioxide 20 Normal (applies MEDGEN (S t [VFr/PPres] in mmol/L to non-numeric Juan C's Gas delivery results) [facility], ) system Urea nitrogen 36 mg/dL Above high normal MEDGEN ( St [Moles/volume] Juan C's in Blood [facility], ) Creatinine 4.78 Above high normal MEDGEN (St [Interpretation] mg/dL Juan C's in Urine [facility], ) BUN/CREATININE 8 (calc) Normal (applies MEDGEN (S t RATIO to non-numeric Juan C's results) [facility]) PROTEIN, TOTAL 8.1 g/dL Normal (applies MEDGEN (S t to non-numeric Juan C's results) [facility]) Calcium 7.6 Below low normal MEDGEN (St [Moles/volume] mg/dL Juan C's in Urine [facility], ) collected for unspecified duration Microalbumin 3.5 g/dL Below low normal MEDGEN (St [Mass/time] in Juan C's Urine collected [facility]) for unspecified duration Globulin 4.6 g/dL Above high normal MEDGEN (St [Mass/time] in (calc) Juan C's 24 hour Urine Medical, ) ALBUMIN/GLOBULIN 0.8 Below low normal MEDGEN (St RATIO (calc) Juan C's [facility], ) BILIRUBIN,TOTAL 0.3 Normal (applies MEDGEN ( St mg/dL to non-numeric Juan C's results) [facility]) Alkaline 71 U/L Normal (applies MEDGEN (St phosphatase to non-numeric Juan C's [Enzymatic results) [facility]) activity/volume] in Serum, Plasma or Blood AST 37 U/L Above high normal MEDGEN ([facility], ) EGFR NON AFR 11 Below low normal MEDGEN (St HUNGARIAN mL/min/1 Juan C's .73m2 Medical, ) ALT 36 U/L Normal (applies MEDGEN (St to non-numeric Juan C's results) [facility]) EGFR 13 Below low normal MEDGEN (St HUNGARIAN mL/min/1 Juan C's .73m2 [facility], ) ID Date Data Source [id number] 04/28/2020 12:00:00 AM EDT MEDGEN ([facility], ) Name Value Range Interpretation Description Data Sup porting Code Source(s) Document(s ) VITAMIN 30 ng/mL Normal (applies to MEDGEN (St D,25-OH,TOTA non-numeric Juan C's L,IA results) Medical, ) ID Date Data Source [id number] 04/28/2020 12:00:00 AM EDT MEDGEN ([facility] Julienne [facility]s [facility], ) Name Value Range Interpretation Description [...] results) [facility]) ID Date Data Source [id number] 04/28/2020 12:00:00 AM EDT MEDGEN (St Julienne [...] MEDGEN (St to non-numeric Juan C's results) [facility]) METAMYELOCYTES,% 2.5 % Normal (applies MEDGEN (St to non-numeric Juan C's results) [facility]) NEUTROPHILS, 6749 Normal (applies MEDGEN (St ABSOLUTE cells/uL to non-numeric Juan C's results) [facility]) BAND,ABSOLUTE 67 Normal (applies MEDGEN (St cells/uL to non-numeric Juan C's results) [facility]) LYMPHOCYTES, 2464 Normal (applies MEDGEN (St ABSOLUTE cells/uL to non-numeric Juan C's results) [facility]) MONOCYTES, 844 Normal (applies MEDGEN (St ABSOLUTE cells/uL to non-numeric [facility] results) [facility]) EOSINOPHILS, 278 Normal (applies MEDGEN (St ABSOLUTE cells/uL to non-numeric Juan C's results) [facility]) BASOPHILS, 67 Normal (applies MEDGEN (St ABSOLUTE cells/uL to non-numeric [facility] results) [facility]) MYELOCYTES,ABSOL 355 Above high normal MEDGE N (St [place] cells/[facility]) METAMYELOCYTES,A 278 Above high normal MEDGE N (St BSOLUTE cells/uL [facility]) NUCLEATED RBC 3 /100 Above high normal MEDGEN ( St WBC [facility]) NUCLEATED 278 Above high normal MEDGEN (St RBC,ABSOLUTE cells/uL [facility]) MORPHOLOGICAL Normal (applies MEDGEN (St REVIEW to non-numeric [facility] results) [facility]) ID Date Data Source [id number] 04/28/2020 12:00:00 AM EDT MEDGEN ([facility]) Name Value Range Interpretation Description Data Sup porting Code Source(s) Document(s ) WBC 11.1 Above high normal MEDGEN (St Thousand Juan C's /[facility]) RBC 2.50 Below low normal MEDGEN (St Million/ Juan C's [facility]) Hemoglobin 8.3 g/dL Below low normal MEDGEN (St [Mass/volume] in [facility] Mixed venous [facility]) blood by Oximetry Hematocrit [Pure 24.9 % Below low normal MEDGEN (St volume fraction] [facility] of Blood by [facility]) Automated count MCV 99.6 fL Normal (applies MEDGEN (St to non-numeric Juan C's results) [facility], ) MCH 33.2 pg Above high normal MED[facility] ([facility], ) MCHC 33.3 Normal (applies MEDGEN (St g/dL to non-numeric Juan C's results) [facility], ) RDW 18.2 % Above high normal MEDGEN ([place], ) PLATELET COUNT 214 Normal (applies MEDGEN (S t Thousand to non-numeric Juan C's /uL results) [facility], ) DIFFERENTIAL Normal (applies MEDGEN (St to non-numeric Juan C's results) [facility], ) MPV 10.1 fL Normal (applies MEDGEN (St to non-numeric Juan C's results) [facility], ) ID Date Data Source [id number] 04/28/2020 12:00:00 AM EDT MEDGEN ([facility], ) Name Value Range Interpretation Description Data Sup porting Code Source(s) Document(s ) PHOSPHATE ( 2.5 mg/dL Normal (applies to MEDGEN (St PHOSPHORUS) non-numeric Juan C's results) [facility], ) ID Date Data Source [id number] 04/28/2020 12:00:00 AM EDT MEDGEN ([facility], ) Name Value Range Interpretation Code Description Data Lisa rce(s) Supporting Document(s ) URIC ACID 5.0 mg/dL Normal (applies to MEDGEN (St non-numeric Juan C's results) [facility], ) ID Date Data Source [id number] 04/28/2020 12:00:00 AM EDT MEDGEN ([facility], ) Name Value Range Interpretation Description Data Sup porting Code Source(s) Document(s ) Glucose 92 mg/dL Normal (applies MEDGEN (St [Mass/volume] in to non-numeric Juan C's Urine collected results) [facility], ) for unspecified duration Sodium 133 Below low normal MEDGEN (St [Moles/volume] mmol/L Juan C's in Serum, Plasma [facility], ) or Blood Potassium 5.2 Normal (applies MEDGEN (St [Mass/volume] in mmol/L to non-numeric Juan C's Blood results) [facility], ) Chloride 109 Normal (applies MEDGEN (St [Moles/volume] mmol/L to non-numeric Juan C's in Serum, Plasma results) [facility] or Blood Carbon dioxide 20 Normal (applies MEDGEN (S t [VFr/PPres] in mmol/L to non-numeric Juan C's Gas delivery results) [facility]) system Urea nitrogen 36 mg/dL Above high normal MEDGEN ( St [Moles/volume] Juan C's in Blood [facility]) Creatinine 4.78 Above high normal MEDGEN (St [Interpretation] mg/dL Juan C's in Urine [facility]) BUN/CREATININE 8 (calc) Normal (applies MEDGEN (S t RATIO to non-numeric Juan C's results) [facility]) PROTEIN, TOTAL 8.1 g/dL Normal (applies MEDGEN (S t to non-numeric Juan C's results) [facility]) Calcium 7.6 Below low normal MEDGEN (St [Moles/volume] mg/dL Juan C's in Urine [facility]) collected for unspecified duration Microalbumin 3.5 g/dL Below low normal MEDGEN (St [Mass/time] in [facility] Urine collected [facility]) for unspecified duration Globulin 4.6 g/dL Above high normal MEDGEN (St [Mass/time] in (calc) Juan C's 24 hour Urine [facility]) ALBUMIN/GLOBULIN 0.8 Below low normal MEDGEN (St RATIO (calc) [facility]) BILIRUBIN,TOTAL 0.3 Normal (applies MEDGEN ( St mg/dL to non-numeric Juan C's results) [facility]) Alkaline 71 U/L Normal (applies MEDGEN (St phosphatase to non-numeric Juan C's [Enzymatic results) [facility]) activity/volume] in Serum, Plasma or Blood AST 37 U/L Above high normal [facility]GEN ([facility], ) ALT 36 U/L Normal (applies MEDGEN (St to non-numeric Juan C's results) [facility]) EGFR 13 Below low normal MEDGEN (St HUNGARIAN mL/min/1 Juan C's .73m2 [facility]) EGFR NON AFR 11 Below low normal MEDGEN (St HUNGARIAN mL/min/1 Juan C's .73m2 [facility]) ID Date Data Source [id number] 04/28/2020 12:00:00 AM EDT MEDGEN ([facility]) Name Value Range Interpretation Description Data Sup porting Code Source(s) Document(s ) VITAMIN 30 ng/mL Normal (applies to MEDGEN (St D,25-OH,TOTA non-numeric Juan C's L,IA results) [facility]) ID Date Data Source [id number] 04/28/2020 12:00:00 AM EDT MEDGEN (St Julienne [...] results) Medical, ) ID Date Data Source [id number] 04/28/2020 12:00:00 AM EDT MEDGEN ([facility], ) Name Value Range Interpretation Description Data Sup porting Code Source(s) Document(s ) SEGMENTED 60.8 % Normal (applies MEDGEN (St NEUTROPHILS,% to non-numeric Ujan C's results) Medical, ) MONOCYTES,% 7.6 % [...] 355 Above high normal MEDGE N (St [place] cells/uL [facility], ) METAMYELOCYTES,A 278 Above high normal MEDGE N (St BSOLUTE cells/uL [facility], ) NUCLEATED RBC 3 /100 Above high normal MEDGEN ( St WBC [facility], ) NUCLEATED 278 Above high normal MEDGEN (St RBC,ABSOLUTE cells/uL [facility], ) MORPHOLOGICAL Normal (applies MEDGEN (St REVIEW to non-numeric Juan C's results) [facility]) ID Date Data Source [id number] 04/28/2020 12:00:00 AM EDT MEDGEN ([facility], ) Name Value Range Interpretation Description Data Sup porting Code Source(s) Document(s ) WBC 11.1 Above high normal MEDGEN (St Thousand Juan C's /[facility], ) RBC 2.50 Below low normal MEDGEN (St Million/ Juan C's [facility], ) Hemoglobin 8.3 g/dL Below low normal MEDGEN (St [Mass/volume] in [facility] Mixed venous [facility], ) blood by Oximetry Hematocrit [Pure 24.9 % Below low normal MEDGEN (St volume fraction] [facility] of Blood by [facility], ) Automated count MCV 99.6 fL Normal (applies MEDGEN (St to non-numeric Juan C's results) [facility]) MCH 33.2 pg Above high normal MEDGEN ([facility], ) MCHC 33.3 Normal (applies MEDGEN (St g/dL to non-numeric Juan C's results) [facility]) RDW 18.2 % Above high normal MEDGEN ([facility], ) PLATELET COUNT 214 Normal (applies MEDGEN (S t Thousand to non-numeric Juan C's /uL results) [facility], ) MPV 10.1 fL Normal (applies MEDGEN (St to non-numeric Juan C's results) [facility], ) DIFFERENTIAL Normal (applies MEDGEN (St to non-numeric Juan C's results) [facility], ) ID Date Data Source [id number] 04/28/2020 12:00:00 AM EDT MEDGEN ([facility], ) Name Value Range Interpretation Description Data Sup porting Code Source(s) Document(s ) PHOSPHATE ( 2.5 mg/dL Normal (applies to MEDGEN (St PHOSPHORUS) non-numeric Juan C's results) [facility], ) ID Date Data Source [id number] 04/28/2020 12:00:00 AM EDT MEDGEN ([facility], ) Name Value Range Interpretation Code Description Data Lisa rce(s) Supporting Document(s ) URIC ACID 5.0 mg/dL Normal (applies to MEDGEN (St non-numeric Juan C's results) [facility]) ID Date Data Source [id number] 04/28/2020 12:00:00 AM EDT MEDGEN ([facility], ) Name Value Range Interpretation Description Data Sup porting Code Source(s) Document(s ) Glucose 92 mg/dL Normal (applies MEDGEN (St [Mass/volume] in to non-numeric Juan C's Urine collected results) [facility], ) for unspecified duration Sodium 133 Below low normal MEDGEN (St [Moles/volume] mmol/L Juan C's in Serum, Plasma [facility], ) or Blood Potassium 5.2 Normal (applies MEDGEN (St [Mass/volume] in mmol/L to non-numeric Juan C's Blood results) [facility], ) Chloride 109 Normal (applies MEDGEN (St [Moles/volume] mmol/L to non-numeric Juan C's in Serum, Plasma results) [facility]) or Blood Carbon dioxide 20 Normal (applies MEDGEN (S t [VFr/PPres] in mmol/L to non-numeric Juan C's Gas delivery results) [facility], ) system Urea nitrogen 36 mg/dL Above high normal MEDGEN ( St [Moles/volume] Juan C's in Blood [facility], ) Creatinine 4.78 Above high normal MEDGEN (St [Interpretation] mg/dL Juan C's in Urine [facility], ) BUN/CREATININE 8 (calc) Normal (applies MEDGEN (S t RATIO to non-numeric Juan C's results) [facility], ) PROTEIN, TOTAL 8.1 g/dL Normal (applies MEDGEN (S t to non-numeric Juan C's results) [facility], ) Calcium 7.6 Below low normal MEDGEN (St [Moles/volume] mg/dL Juan C's in Urine [facility], ) collected for unspecified duration Microalbumin 3.5 g/dL Below low normal MEDGEN (St [Mass/time] in Juan C's Urine collected [facility], ) for unspecified duration Globulin 4.6 g/dL Above high normal MEDGEN (St [Mass/time] in (calc) Juan C's 24 hour Urine [facility]) ALBUMIN/GLOBULIN 0.8 Below low normal MEDGEN (St RATIO (calc) Juan C's [facility], ) BILIRUBIN,TOTAL 0.3 Normal (applies MEDGEN [...] AFR 11 Below low normal MEDGEN (St HUNGARIAN mL/min/1 Juan C's .73m2 Medical, ) EGFR 13 Below low normal MEDGEN (St HUNGARIAN mL/min/1 Juan C's .73m2 [facility], ) ID Date Data Source [id number] 04/28/2020 12:00:00 AM EDT [facility] ([facility] ) Name Value Range Interpretation Description Data Sup porting Code Source(s) Document(s ) VITAMIN 30 ng/mL Normal (applies to MEDGEN (St D,25-OH,TOTA non-numeric Juan C's L,IA results) Medical, ) ID Date Data Source [id number] 04/28/2020 12:00:00 AM EDT MEDGEN ([facility], ) Name Value Range Interpretation [...] to non-numeric Juan C's [Presence] in results) [facility], Body fluid by PC) Automated test [...] results) [facility], [facility]) ID Date Data Source [id number] 04/28/2020 12:00:00 AM EDT MEDGEN (St Julienne [...] MEDGEN (St to non-numeric Juan C's results) [facility]) NEUTROPHILS, 6749 Normal (applies MEDGEN (St ABSOLUTE cells/uL to non-numeric Juan C's results) [facility]) BAND,ABSOLUTE 67 Normal (applies MEDGEN (St cells/uL to non-numeric Juan C's results) [facility]) LYMPHOCYTES, 2464 Normal (applies MEDGEN (St ABSOLUTE cells/uL to non-numeric Juan C's results) [facility]) EOSINOPHILS, 278 Normal (applies MEDGEN (St ABSOLUTE cells/uL to non-numeric Juan C's results) [facility]) MONOCYTES, 844 Normal (applies MEDGEN (St ABSOLUTE cells/uL to non-numeric Juan C's results) [facility]) BASOPHILS, 67 Normal (applies MEDGEN (St ABSOLUTE cells/uL to non-numeric [facility] results) [facility]) METAMYELOCYTES,A 278 Above high normal MEDGE N (St BSOLUTE cells/uL [facility]) MYELOCYTES,ABSOL 355 Above high normal MEDGE N (St [place] cells/uL [facility]) NUCLEATED RBC 3 /100 Above high normal MEDGEN ( St WBC [facility]) NUCLEATED 278 Above high normal MEDGEN (St RBC,ABSOLUTE cells/uL [facility]) MORPHOLOGICAL Normal (applies MEDGEN (St REVIEW to non-numeric [facility] results) [facility]) ID Date Data Source [id number] 04/28/2020 12:00:00 AM EDT MEDGEN ([facility]) Name Value Range Interpretation Description Data Sup porting Code Source(s) Document(s ) WBC 11.1 Above high normal MEDGEN (St Thousand Juan C's /[facility]) RBC 2.50 Below low normal MEDGEN (St Million/ Juan C's [facility]) Hemoglobin 8.3 g/dL Below low normal MEDGEN (St [Mass/volume] in [facility] Mixed venous [facility]) blood by Oximetry Hematocrit [Pure 24.9 % Below low normal MEDGEN (St volume fraction] [facility] of Blood by [facility]) Automated count MCV 99.6 fL Normal (applies MEDGEN (St to non-numeric Juan C's results) [facility]) MCH 33.2 pg Above high normal MEDGEN ([facility], ) MCHC 33.3 Normal (applies MEDGEN (St g/dL to non-numeric Juan C's results) [facility]) RDW 18.2 % Above high normal MEDGEN ([facility], ) PLATELET COUNT 214 Normal (applies MEDGEN (S t Thousand to non-numeric Juan C's /uL results) [facility], [facility]) MPV 10.1 fL Normal (applies MEDGEN (St to non-numeric Juan C's results) [facility], [facility]) DIFFERENTIAL Normal (applies MEDGEN (St to non-numeric Juan C's results) [facility]) ID Date Data Source [id number] 04/28/2020 12:00:00 AM EDT MEDGEN ([facility], ) Name Value Range Interpretation Description Data Sup porting Code Source(s) Document(s ) PHOSPHATE ( 2.5 mg/dL Normal (applies to MEDGEN (St PHOSPHORUS) non-numeric Juan C's results) Medical, ) ID Date Data Source [id number] 04/28/2020 12:00:00 AM EDT MEDGEN ([facility], ) Name Value Range Interpretation Description Data Sup porting Code Source(s) Document(s ) VITAMIN 30 ng/mL Normal (applies to MEDGEN (St D,25-OH,TOTA non-numeric Juan C's L,IA results) Medical, ) ID Date Data Source [id number] 04/28/2020 12:00:00 AM EDT MEDGEN ([facility], ) Name Value Range Interpretation Description [...] results) Medical, PC) ID Date Data Source [id number] 04/28/2020 12:00:00 AM EDT MEDGEN (St Julienne [...] MEDGEN (St to non-numeric Juan C's results) [facility]) METAMYELOCYTES,% 2.5 % Normal (applies MEDGEN (St to non-numeric Juan C's results) [facility]) NEUTROPHILS, 6749 Normal (applies MEDGEN (St ABSOLUTE cells/uL to non-numeric Juan C's results) [facility]) BAND,ABSOLUTE 67 Normal (applies MEDGEN (St cells/uL to non-numeric [facility] results) [facility]) LYMPHOCYTES, 2464 Normal (applies MEDGEN (St ABSOLUTE cells/uL to non-numeric Juan C's results) [facility]) MONOCYTES, 844 Normal (applies MEDGEN (St ABSOLUTE cells/uL to non-numeric [facility] results) [facility]) EOSINOPHILS, 278 Normal (applies MEDGEN (St ABSOLUTE cells/uL to non-numeric Juan C's results) [facility]) BASOPHILS, 67 Normal (applies MEDGEN (St ABSOLUTE cells/uL to non-numeric [facility] results) [facility]) MYELOCYTES,ABSOL 355 Above high normal MEDGE N (St [place] cells/[facility]) METAMYELOCYTES,A 278 Above high normal MEDGE N (St BSOLUTE cells/uL [facility]) NUCLEATED RBC 3 /100 Above high normal MEDGEN ( St WBC [facility]) NUCLEATED 278 Above high normal MEDGEN (St RBC,ABSOLUTE cells/uL [facility]) MORPHOLOGICAL Normal (applies MEDGEN (St REVIEW to non-numeric [facility] results) [facility]) ID Date Data Source [id number] 04/28/2020 12:00:00 AM EDT MEDGEN ([facility]) Name Value Range Interpretation Description Data Sup porting Code Source(s) Document(s ) WBC 11.1 Above high normal MEDGEN (St Thousand Juan C's /[facility]) RBC 2.50 Below low normal MEDGEN (St Million/ Juan C's [facility]) Hemoglobin 8.3 g/dL Below low normal MEDGEN (St [Mass/volume] in [facility] Mixed venous [facility]) blood by Oximetry Hematocrit [Pure 24.9 % Below low normal MEDGEN (St volume fraction] [facility] [facility] Blood by [facility]) Automated count MCV 99.6 fL Normal (applies MEDGEN (St to non-numeric Juan C's results) Medical, ) MCH 33.2 pg Above high normal [facility] ([facility], ) MCHC 33.3 Normal (applies MEDGEN (St g/dL to non-numeric Juan C's results) [facility], ) RDW 18.2 % Above high normal [facility] ([facility], ) PLATELET COUNT 214 Normal (applies MEDGEN (S t Thousand to non-numeric Juan C's /uL results) Medical, ) MPV 10.1 fL Normal (applies [facility]GEN (St to non-numeric Juan C's results) Medical, ) DIFFERENTIAL Normal (applies MEDGEN (St to non-numeric Juan C's results) Medical, ) ID Date Data Source [id number] 04/28/2020 12:00:00 AM EDT [facility] ([facility], ) Name Value Range Interpretation Description Data Sup porting Code Source(s) Document(s ) PHOSPHATE ( 2.5 mg/dL Normal (applies to MEDGEN (St PHOSPHORUS) non-numeric Juan C's results) [facility], ) ID Date Data Source [id number] 04/28/2020 12:00:00 AM EDT [facility] ([facility], ) Name Value Range Interpretation Code Description Data Lisa rce(s) Supporting Document(s ) URIC ACID 5.0 mg/dL Normal (applies to MEDGEN (St non-numeric Juan C's results) [facility], ) ID Date Data Source [id number] 04/28/2020 12:00:00 AM EDT [facility] ([facility], ) Name Value Range Interpretation Description Data Sup porting Code Source(s) Document(s ) Glucose 92 mg/dL Normal (applies MEDGEN (St [Mass/volume] in to non-numeric Juan C's Urine collected results) Medical, ) for unspecified duration Sodium 133 Below low normal MEDGEN (St [Moles/volume] mmol/L Juan C's in Serum, Plasma [facility], ) or Blood Potassium 5.2 Normal (applies MEDGEN (St [Mass/volume] in mmol/L to non-numeric Juan C's Blood results) [facility], ) Chloride 109 Normal (applies MEDGEN (St [Moles/volume] mmol/L to non-numeric Juna C's in Serum, Plasma results) [facility]) or Blood Carbon dioxide 20 Normal (applies MEDGEN (S t [VFr/PPres] in mmol/L to non-numeric Juan C's Gas delivery results) [facility]) system Urea nitrogen 36 mg/dL Above high normal MEDGEN ( St [Moles/volume] Juan C's in Blood [facility]) Creatinine 4.78 Above high normal MEDGEN (St [Interpretation] mg/dL Juan C's in Urine [facility]) BUN/CREATININE 8 (calc) Normal (applies MEDGEN (S t RATIO to non-numeric Juan C's results) [facility]) Calcium 7.6 Below low normal MEDGEN (St [Moles/volume] mg/dL Juan C's in Urine [facility]) collected for unspecified duration PROTEIN, TOTAL 8.1 g/dL Normal (applies MEDGEN (S t to non-numeric Juan C's results) [facility]) Microalbumin 3.5 g/dL Below low normal MEDGEN (St [Mass/time] in [facility] Urine collected [facility]) for unspecified duration Globulin 4.6 g/dL Above high normal MEDGEN (St [Mass/time] in (calc) [facility] 24 hour Urine [facility]) ALBUMIN/GLOBULIN 0.8 Below low normal MEDGEN (St RATIO (calc) [facility]) BILIRUBIN,TOTAL 0.3 Normal (applies MEDGEN ( St mg/dL to non-numeric Juan C's results) [facility]) Alkaline 71 U/L Normal (applies MEDGEN (St phosphatase to non-numeric Juan C's [Enzymatic results) [facility]) activity/volume] in Serum, Plasma or Blood AST 37 U/L Above high normal [facility] ([facility], ) ALT 36 U/L Normal (applies [facility]GEN (St to non-numeric Juan C's results) [facility]) EGFR NON AFR 11 Below low normal MEDGEN (St HUNGARIAN mL/min/1 Juan C's .73m2 [facility]) EGFR 13 Below low normal MEDGEN (St HUNGARIAN mL/min/1 Juan C's .73m2 [facility]) ID Date Data Source [id number] 04/28/2020 12:00:00 AM EDT [facility] ([facility]) Name Value Range Interpretation Description Data Sup porting Code Source(s) Document(s ) WBC 11.1 Above high normal MEDGEN (St Thousand/ Juan C's uL [facility], ) RBC 2.50 Below low normal MEDGEN (St Million/u Juan C's L [facility], ) Hematocrit 24.9 % Below low normal MEDGEN (St [Pure volume Juan C's fraction] of [facility], ) Blood by Automated count Hemoglobin 8.3 g/dL Below low normal MEDGEN (St [Mass/volume] Juan C's in Mixed [facility], ) venous blood by Oximetry MCV 99.6 fL Normal (applies to MEDGEN (St non-numeric Juan C's results) [facility], ) MCH 33.2 pg Above high normal [facility] ([facility], ) RDW 18.2 % Above high normal [facility] ([facility], ) MCHC 33.3 g/dL Normal (applies to MEDGEN (St non-numeric Juan C's results) [facility], ) PLATELET COUNT 214 Normal (applies to MEDGEN (St Thousand/ non-numeric Juan C's uL results) [facility], ) MPV 10.1 fL Normal (applies to MEDGEN (St non-numeric Juan C's results) [facility], ) ID Date Data Source [id number] 04/28/2020 12:00:00 AM EDT [facility] ([facility], ) Name Value Range Interpretation Description Data Sup porting Code Source(s) Document(s ) PHOSPHATE ( 2.5 mg/dL Normal (applies to MEDGEN (St PHOSPHORUS) non-numeric Juan C's results) [facility], ) ID Date Data Source [id number] 04/28/2020 12:00:00 AM EDT [facility] ([facility], ) Name Value Range Interpretation Code Description Data Lisa rce(s) Supporting Document(s ) URIC ACID 5.0 mg/dL Normal (applies to MEDGEN (St non-numeric Juan C's results) [facility], ) ID Date Data Source [id number] 04/28/2020 12:00:00 AM EDT [facility] ([facility], ) Name Value Range Interpretation Description Data Sup porting Code Source(s) Document(s ) Glucose 92 mg/dL Normal (applies MEDGEN (St [Mass/volume] in to non-numeric Juan C's Urine collected results) [facility], ) for unspecified duration Sodium 133 Below low normal [facility]GEN (St [Moles/volume] mmol/L Juan C's in Serum, Plasma [facility]) or Blood Potassium 5.2 Normal (applies [facility]GEN (St [Mass/volume] in mmol/L to non-numeric Juan C's Blood results) [facility]) Chloride 109 Normal (applies [facility]GEN (St [Moles/volume] mmol/L to non-numeric Juan C's in Serum, Plasma results) [facility]) or Blood Carbon dioxide 20 Normal (applies MEDGEN (S t [VFr/PPres] in mmol/L to non-numeric Juan C's Gas delivery results) [facility]) system Urea nitrogen 36 mg/dL Above high normal MEDGEN ( St [Moles/volume] Juan C's in Blood [facility]) Creatinine 4.78 Above high normal [facility]GEN (St [Interpretation] mg/dL Juan C's in Urine [facility]) BUN/CREATININE 8 (calc) Normal (applies MEDGEN (S t RATIO to non-numeric Juan C's results) [facility]) Calcium 7.6 Below low normal [facility] (St [Moles/volume] mg/dL Juan C's in Urine [facility]) collected for unspecified duration PROTEIN, TOTAL 8.1 g/dL Normal (applies [facility]GEN (S t to non-numeric Juan C's results) [facility]) Microalbumin 3.5 g/dL Below low normal [facility]GEN (St [Mass/time] in Juan C's Urine collected [facility]) for unspecified duration Globulin 4.6 g/dL Above high normal [facility]GEN (St [Mass/time] in (calc) Juan C's 24 hour Urine [facility]) ALBUMIN/GLOBULIN 0.8 Below low normal [facility]GEN (St RATIO (calc) Juan C's [facility]) BILIRUBIN,TOTAL 0.3 Normal (applies [facility]GEN ( St mg/dL to non-numeric Juan C's results) [facility]) Alkaline 71 U/L Normal (applies [facility]GEN (St phosphatase to non-numeric Juan C's [Enzymatic results) [facility]) activity/volume] in Serum, Plasma or Blood AST 37 U/L Above high normal [facility] ([facility], ) ALT 36 U/L Normal (applies [facility] (St to non-numeric Juan C's results) [facility]) EGFR NON AFR 11 Below low normal [facility] (St HUNGARIAN mL/min/1 Juan C's .73m2 Medical, PC) EGFR 13 Below low normal [facility] (St HUNGARIAN mL/min/1 Juan C's .73m2 Medical, PC) ID Date Data Source [id number] 04/28/2020 12:00:00 AM EDT [facility] ([facility], ) Name Value Range Interpretation Description Data Sup porting Code Source(s) Document(s ) VITAMIN 30 ng/mL Normal (applies to MEDGEN (St D,25-OH,TOTA non-numeric Juan C's L,IA results) Medical, PC) ID Date Data Source [id number] 04/28/2020 12:00:00 AM EDT [facility] (St Julienne [...] results) Medical, ) ID Date Data Source [id number] 04/28/2020 12:00:00 AM EDT MEDGEN (St Julienne [...] MEDGEN ( St SOLUTE cells/uL Juan C's [facility], ) BASOPHILS, 67 Normal (applies to MEDGEN (St ABSOLUTE cells/uL non-numeric Juan C's results) [facility], ) METAMYELOCYTE 278 Above high normal MEDGEN ( St S,ABSOLUTE cells/uL [facility], ) NUCLEATED RBC 3 /100 Above high normal [facility] ( St WBC [facility], ) NUCLEATED 278 Above high normal MEDGEN (St RBC,ABSOLUTE cells/uL [facility], ) ID Date Data Source [id number] 04/20/2020 02:15:00 PM EDT [facility] Name Value Range Interpretation Description Data Sup porting Code Source(s) Document(s ) SARS [facility] coronavirus 2 RNA This lab was ordered by [facility] and reported by [facility]. ID Date Data Source [id number] 04/17/2020 12:00:00 AM EDT [facility] ([facility], ) Name Value Range Interpretation Code Description Data Supporting Source(s) Document(s ) Albumin, 741.5 Normal (applies to MEDGEN (St Urine ug/mL non-numeric Juan C's results) [facility], ) ID Date Data Source [id number] 04/17/2020 12:00:00 AM EDT [facility] ([facility], ) Name Value Range Interpretation Description Data Sup porting Code Source(s) Document(s ) INR 1.1 Normal (applies [facility] (St to non-numeric Juan C's results) Medical, ) Prothrombin 11.4 sec Normal (applies [facility] (St Time to non-numeric Juan C's results) Medical, ) aPTT 28 sec Normal (applies [facility] (St to non-numeric Juan C's results) Medical, ) ID Date Data Source [id number] 04/17/2020 12:00:00 AM EDT [facility] (St Julienne [...] C's Medical, ) ID Date Data Source [id number] 04/17/2020 12:00:00 AM EDT [facility] ([facility] Julienne diana's [facility], ) Name Value Range Interpretation Description [...] results) Medical, ) ID Date Data Source [id number] 04/17/2020 12:00:00 AM EDT [facility] (St Julienne [...] by Light microscopy ID Date Data Source [id number] 04/17/2020 12:00:00 AM EDT [facility] ([facility], ) Name Value Range Interpretation Description Data Sup porting Code Source(s) Document(s ) Glucose 89 mg/dL Normal (applies [facility]GEN (St [Mass/volume] in to non-numeric Juan C's Urine collected for results) Medical, unspecified PC) duration Urea nitrogen 47 mg/dL Above high MEDGEN (St [Mass/volume] in normal Juan C's Serum or Plasma [facility], ) Creatinine 4.60 Above high MEDGEN (St [Interpretation] in mg/dL normal Juan C's Urine [facility], ) eGFR If NonAfricn 12 Below low normal MEDGE N (St Am mL/min/1 [facility] [address] [place] [address], ) eGFR If Africn Am 13 Below low normal MEDGE N (St mL/min/1 [facility] .73 [facility], ) BUN/Creatinine 10 Normal (applies MEDGEN [...] non-numeric Juan C's Urine collected for results) [facility], unspecified ) duration Microalbumin 4.0 g/dL Normal (applies [facility]GEN (St [Mass/time] in to non-numeric Juan C's Urine collected for results) [facility], unspecified ) duration Protein 8.7 g/dL Above high MEDGEN (St [Mass/volume] in normal Juan C's Serum or Plasma [facility], ) Globulin, Total 4.7 g/dL Above high MEDGEN (St normal [facility], ) A/G Ratio 0.9 Below low normal [facility] ([facility], ) Bilirubin.total 0.2 Normal (applies [facility]GEN ( St [Mass/volume] in mg/dL to non-numeric Juan C's Serum or Plasma results) [facility], ) Alkaline 75 IU/L Normal (applies [...] Serum or Plasma ID Date Data Source [id number] 04/17/2020 12:00:00 AM EDT [facility] ([facility], ) Name Value Range Interpretation Description Data Sup porting Code Source(s) Document(s ) Leukocytes 11.4 Above high normal [facility] (St [#/volume] in x10E3/uL Juan C's Blood by [facility], ) Automated count Erythrocytes 2.79 Below low normal [facility] (St [#/volume] in x10E6/uL Juan C's Blood by [facility], ) Automated count Hemoglobin 9.3 g/dL Below low normal [facility]GEN (St [Mass/volume] in Juan C's Blood [facility], ) Hematocrit 27.3 % Below low normal [facility]GEN (St [Volume Juan C's Fraction] of [facility], ) Blood by Automated count MCV 98 fL Above high normal [facility] ([facility], ) MCH 33.3 pg Above high normal [facility] ([facility], ) MCHC 34.1 Normal (applies MEDGEN (St g/dL to non-numeric Juan C's results) [facility], ) RDW 17.5 % Above high normal [facility] ([facility], ) Neutrophils [#] 71 % Normal (applies MEDGEN ( St in Body fluid by to non-numeric Juan C's Manual count results) [facility], ) Platelets 146 Below low normal MEDGEN (St [#/area] in x10E3/uL Juan C's Blood by [facility], ) Microscopy high power field Lymphs 12 % Normal (applies MEDGEN (St to non-numeric Juan C's results) [facility], ) Monocytes 9 % Normal (applies MEDGEN (St [#/volume] in to non-numeric Juan C's Cord blood results) [facility], ) Eos 4 % Normal (applies MEDGEN (St to non-numeric Juan C's results) [facility], ) Basos 0 % Normal (applies MEDGEN (St to non-numeric Juan C's results) [facility], ) Neutrophils 8.2 Above high normal MEDGEN (St (Absolute) x10E3/uL Juan C's [facility], ) Lymphs 1.4 Normal (applies MEDGEN (St (Absolute) x10E3/uL to non-numeric Juan C's results) [facility], ) Monocytes(Absolu 1.0 Above high normal MEDGE N (St te) x10E3/uL Juan C's [facility], ) Eos (Absolute) 0.4 Normal (applies MEDGEN (S t x10E3/uL to non-numeric Juan C's results) [facility], ) Baso (Absolute) 0.0 Normal (applies [facility]GEN ( St x10E3/uL to non-numeric Juan C's results) [facility], ) Immature 4 % Normal (applies MEDGEN (St Granulocytes to non-numeric Juan C's results) [facility], ) Immature Grans 0.4 Above high normal [facility] (St (Abs) x10E3/uL Juan C's [facility], ) NRBC 1 % Above high normal [facility] ([facility], ) ID Date Data Source [id number] 04/17/2020 12:00:00 AM EDT [facility] ([facility], ) Name Value Range Interpretation Code Description Data Supporting Source(s) Document(s ) Albumin, 741.5 Normal (applies to [facility]GEN (St Urine ug/mL non-numeric Juan C's results) Medical, ) ID Date Data Source [id number] 04/17/2020 12:00:00 AM EDT [facility] ([facility], ) Name Value Range Interpretation Description Data Sup porting Code Source(s) Document(s ) INR 1.1 Normal (applies [facility] (St to non-numeric Juan C's results) Medical, PC) Prothrombin 11.4 sec Normal (applies [facility] (St Time to non-numeric Juan C's results) Medical, PC) aPTT 28 sec Normal (applies [facility]GEN (St to non-numeric Juan C's results) Medical, PC) ID Date Data Source [id number] 04/17/2020 12:00:00 AM EDT [facility] (St [facility], ) Name Value Range Interpretation Code Description Data Supporting Source(s) Document(s ) Creatinine 74.9 mg/dL Normal (applies to MEDGEN (S t , Urine non-numeric Juan C's results) Medical, PC) Protein,To 185.1 Normal (applies to [facility]GEN (St ruth,Urine mg/dL non-numeric Juan C's results) Medical, ) Protein/Cr 2471 mg/g Above high normal MEDGEN (St eat Ratio creat [facility], ) ID Date Data Source [id number] 04/17/2020 12:00:00 AM EDT [facility] ([facility], ) Name Value Range Interpretation Description [...] Negative Normal (applies MEDGEN (St to non-numeric Juanc 's results) Medical, PC) Protein Abnormal MEDGEN (St [...] results) Medical, ) ID Date Data Source [id number] 04/17/2020 12:00:00 AM EDT [facility] ([facility], ) Name Value Range Interpretation Description [...] by Light microscopy ID Date Data Source [id number] 04/17/2020 12:00:00 AM EDT [facility] (St Julienne [...] N (St Am mL/min/1 Juan C's .73 [facility], ) eGFR If Africn Am 13 Below low normal MEDGE N (St mL/min/1 [facility] .73 [facility], ) BUN/Creatinine 10 Normal (applies MEDGEN [...] mmol/L normal Juan C's Serum or Plasma [facility], ) Calcium 8.6 Normal (applies [facility]GEN (St [Moles/volume] in mg/dL to non-numeric Juan C's Urine collected for results) Medical, unspecified PC) duration Protein 8.7 g/dL Above high MEDGEN (St [Mass/volume] in normal Juan C's Serum or Plasma [facility], ) Microalbumin 4.0 g/dL Normal (applies [facility]GEN (St [Mass/time] in to non-numeric Juan C's Urine collected for results) Medical, unspecified PC) duration Globulin, Total 4.7 g/dL Above high [facility]GEN (St normal Juan [facility]'s Medical, ) A/G Ratio 0.9 Below low normal [facility] ([facility], ) Bilirubin.total 0.2 Normal (applies MEDGEN [...] Serum or Plasma ID Date Data Source [id number] 04/17/2020 12:00:00 AM EDT [facility] ([facility], ) Name Value Range Interpretation Description Data Sup porting Code Source(s) Document(s ) Leukocytes 11.4 Above high normal [facility] (St [#/volume] in x10E3/uL Juan C's Blood by [facility], ) Automated count Hemoglobin 9.3 g/dL Below low normal [facility]GEN (St [Mass/volume] in Juan C's Blood [facility], ) Erythrocytes 2.79 Below low normal [facility]GEN (St [#/volume] in x10E6/uL Juan C's Blood by [facility], ) Automated count Hematocrit 27.3 % Below low normal [facility]GEN (St [Volume Juan C's Fraction] of [facility], ) Blood by Automated count MCV 98 fL Above high normal [facility] ([facility], ) MCHC 34.1 Normal (applies MEDGEN (St g/dL to non-numeric Juan C's results) [facility], ) MCH 33.3 pg Above high normal [facility] ([facility], ) RDW 17.5 % Above high normal [facility] ([facility], ) Platelets 146 Below low normal MEDGEN (St [#/area] in x10E3/uL Juan C's Blood by [facility], ) Microscopy high power field Neutrophils [#] 71 % Normal (applies MEDGEN ( St in Body fluid by to non-numeric Juan C's Manual count results) [facility], ) Lymphs 12 % Normal (applies MEDGEN (St to non-numeric Juan C's results) [facility], ) Monocytes 9 % Normal (applies MEDGEN (St [#/volume] in to non-numeric Juan C's Cord blood results) [facility], ) Eos 4 % Normal (applies MEDGEN (St to non-numeric Juan C's results) [facility], ) Basos 0 % Normal (applies MEDGEN (St to non-numeric Juan C's results) [facility], ) Lymphs 1.4 Normal (applies MEDGEN (St (Absolute) x10E3/uL to non-numeric Juan C's results) [facility]) Neutrophils 8.2 Above high normal MEDGEN (St (Absolute) x10E3/uL [facility], ) Monocytes(Absolu 1.0 Above high normal MEDGE N (St te) x10E3/uL [facility], ) Eos (Absolute) 0.4 Normal (applies MEDGEN (S t x10E3/uL to non-numeric Juan C's results) [facility], ) Baso (Absolute) 0.0 Normal (applies MEDGEN ( St x10E3/uL to non-numeric Juan C's results) Medical, ) Immature Grans 0.4 Above high normal MEDGEN (St (Abs) x10E3/uL [facility], ) Immature 4 % Normal (applies MEDGEN (St Granulocytes to non-numeric Juan C's results) [facility], ) NRBC 1 % Above high normal [facility] ([facility], ) ID Date Data Source [id number] 04/17/2020 12:00:00 AM EDT [facility] ([facility], ) Name Value Range Interpretation Code Description Data Supporting Source(s) Document(s ) Albumin, 741.5 Normal (applies to MEDGEN (St Urine ug/mL non-numeric Juan C's results) [facility], ) ID Date Data Source [id number] 04/17/2020 12:00:00 AM EDT [facility] ([facility], ) Name Value Range Interpretation Description Data Sup porting Code Source(s) Document(s ) INR 1.1 Normal (applies MEDGEN (St to non-numeric Juan C's results) [facility], ) Prothrombin 11.4 sec Normal (applies MEDGEN (St Time to non-numeric Juan C's results) [facility], ) aPTT 28 sec Normal (applies MEDGEN (St to non-numeric Juan C's results) [facility], ) ID Date Data Source [id number] 04/17/2020 12:00:00 AM EDT [facility] ([facility], ) Name Value Range Interpretation Code Description Data Supporting Source(s) Document(s ) Creatinine 74.9 mg/dL Normal (applies to MEDGEN (S t , Urine non-numeric Juan C's results) [facility], ) Protein,To 185.1 Normal (applies to [facility]GEN (St ruth,Urine mg/dL non-numeric Juan C's results) [facility], ) Protein/Cr 2471 mg/g Above high normal MEDGEN (St eat Ratio creat Juan [facility]'s Medical, ) ID Date Data Source [id number] 04/17/2020 12:00:00 AM EDT [facility] (St Julienne [...] results) Medical, ) ID Date Data Source [id number] 04/17/2020 12:00:00 AM EDT [facility] (St Julienne [...] by Light microscopy ID Date Data Source [id number] 04/17/2020 12:00:00 AM EDT [facility] (St [facility], ) Name Value Range Interpretation [...] MEDGE N (St mL/min/1 Juan C's .73 [facility], ) BUN/Creatinine 10 Normal (applies MEDGEN [...] in normal Juan C's Serum or Plasma [facility], ) Microalbumin 4.0 g/dL Normal (applies MEDGEN (St [Mass/time] in to non-numeric Juan C's Urine collected for results) [facility], unspecified ) duration Globulin, Total 4.7 g/dL Above high MEDGEN (St normal [facility], ) A/G Ratio 0.9 Below low normal [facility] ([facility], ) Bilirubin.total 0.2 Normal (applies MEDGEN ( St [Mass/volume] in mg/dL to non-numeric Juan C's Serum or Plasma results) [facility], ) Alkaline 75 IU/L Normal (applies MEDGEN (St phosphatase to non-numeric Juan C's [Enzymatic results) [facility], activity/volume] in ) Serum, Plasma or Blood Aspartate 20 IU/L Normal (applies MEDGEN (St aminotransferase to non-numeric Juan C's [Enzymatic results) [facility], activity/volume] in ) Serum or Plasma Alanine 57 IU/L Above high MEDGEN (St aminotransferase normal Juan C's [Enzymatic Medical, activity/volume] in ) Serum or Plasma ID Date Data Source [id number] 04/17/2020 12:00:00 AM EDT MEDGEN ( [facility], ) Name Value Range Interpretation Description Data Sup porting Code Source(s) Document(s ) Leukocytes 11.4 Above high normal MEDGEN (St [#/volume] in x10E3/uL Juan C's Blood by [facility], ) Automated count Erythrocytes 2.79 Below low normal MEDGEN (St [#/volume] in x10E6/uL Juan [facility]'s Blood by [facility], ) Automated count Hemoglobin 9.3 g/dL Below low normal MEDGEN (St [Mass/volume] in Juan C's Blood [facility], ) Hematocrit 27.3 % Below low normal MEDGEN (St [Volume Juan C's Fraction] of [facility], ) Blood by Automated count MCV 98 fL Above high normal MEDGEN ([facility], ) MCH 33.3 pg Above high normal MEDGEN ([facility], ) MCHC 34.1 Normal (applies MEDGEN (St g/dL to non-numeric Juan C's results) [facility], ) RDW 17.5 % Above high normal MEDGEN ([facility], ) Platelets 146 Below low normal MEDGEN (St [#/area] in x10E3/uL Juan [facility]'s Blood by [facility], ) Microscopy high power field Neutrophils [#] 71 % Normal (applies MEDGEN ( St in Body fluid by to non-numeric Juan C's Manual count results) [facility], ) Lymphs 12 % Normal (applies MEDGEN (St to non-numeric Juan C's results) [facility], ) Monocytes 9 % Normal (applies MEDGEN (St [#/volume] in to non-numeric Juan C's Cord blood results) [facility], ) Eos 4 % Normal (applies MEDGEN (St to non-numeric Juan C's results) [facility], ) Basos 0 % Normal (applies MEDGEN (St to non-numeric Juan C's results) [facility], ) Lymphs 1.4 Normal (applies MEDGEN (St (Absolute) x10E3/uL to non-numeric Juan C's results) [facility], ) Neutrophils 8.2 Above high normal MEDGEN (St (Absolute) x10E3/uL Juan C's [facility], ) Monocytes(Absolu 1.0 Above high normal MEDGE N (St te) x10E3/uL Juan C's [facility], ) Eos (Absolute) 0.4 Normal (applies MEDGEN (S t x10E3/uL to non-numeric Juan C's results) [facility], ) Baso (Absolute) 0.0 Normal (applies MEDGEN ( St x10E3/uL to non-numeric Juan C's results) [facility], ) Immature 4 % Normal (applies MEDGEN (St Granulocytes to non-numeric Juan C's results) [facility], ) Immature Grans 0.4 Above high normal MEDGEN (St (Abs) x10E3/uL Juan C's [facility], ) NRBC 1 % Above high normal [facility] ([facility], ) ID Date Data Source [id number] 04/17/2020 12:00:00 AM EDT [facility] ([facility], ) Name Value Range Interpretation Code Description Data Supporting Source(s) Document(s ) Albumin, 741.5 Normal (applies to MEDGEN (St Urine ug/mL non-numeric Juan C's results) [facility], ) ID Date Data Source [id number] 04/17/2020 12:00:00 AM EDT MED[facility] ([facility] [...] results) Medical, PC) ID Date Data Source [id number] 04/17/2020 12:00:00 AM EDT MEDGEN ([facility], ) Name Value Range Interpretation Code Description Data Supporting Source(s) Document(s ) Creatinine 74.9 mg/dL Normal (applies to MEDGEN (S t , Urine non-numeric Juan C's results) Medical, PC) Protein,To 185.1 Normal (applies to MEDGEN (St ruth,Urine mg/dL non-numeric Juan C's results) Medical, PC) Protein/Cr 2471 mg/g Above high normal MEDGEN (St eat Ratio creat [facility], ) ID Date Data Source [id number] 04/17/2020 12:00:00 AM EDT MEDGEN ([facility], ) Name Value Range Interpretation Description [...] results) Medical, ) ID Date Data Source [id number] 04/17/2020 12:00:00 AM EDT [facility] ([facility], ) Name Value Range Interpretation Description [...] by Light microscopy ID Date Data Source [id number] 04/17/2020 12:00:00 AM EDT [facility] ([facility], ) Name Value Range Interpretation Description Data Sup porting Code Source(s) Document(s ) Urea nitrogen 47 mg/dL Above high MEDGEN (St [Mass/volume] in normal Juan C's Serum or Plasma [facility], ) Glucose 89 mg/dL Normal (applies [...] mmol/L normal Juan C's Serum or Plasma [facility], ) Calcium 8.6 Normal (applies MEDGEN (St [Moles/volume] in mg/dL to non-numeric Juan C's Urine collected for results) Medical, unspecified ) duration Protein 8.7 g/dL Above high MEDGEN (St [Mass/volume] in normal Juan C's Serum or Plasma [facility], ) Microalbumin 4.0 g/dL Normal (applies MEDGEN (St [Mass/time] in to non-numeric Juan C's Urine collected for results) [facility], unspecified ) duration A/G Ratio 0.9 Below low normal [facility] ([facility], ) Globulin, Total 4.7 g/dL Above high MEDGEN (St normal Juan C's [facility], ) Bilirubin.total 0.2 Normal (applies MEDGEN [...] Serum or Plasma ID Date Data Source [id number] 04/17/2020 12:00:00 AM EDT [facility] ([facility], ) Name Value Range Interpretation Description Data Sup porting Code Source(s) Document(s ) Leukocytes 11.4 Above high normal MEDGEN (St [#/volume] in x10E3/uL Juan C's Blood by [facility]) Automated count Erythrocytes 2.79 Below low normal MEDGEN (St [#/volume] in x10E6/uL Juan C's Blood by [facility], ) Automated count Hematocrit 27.3 % Below low normal MEDGEN (St [Volume Juan C's Fraction] of [facility], ) Blood by Automated count Hemoglobin 9.3 g/dL Below low normal MEDGEN (St [Mass/volume] in [facility] Blood [facility]) MCH 33.3 pg Above high normal MEDGEN ([facility], ) MCV 98 fL Above high normal MEDGEN ([facility], ) MCHC 34.1 Normal (applies MEDGEN (St g/dL to non-numeric Juan C's results) [facility]) Platelets 146 Below low normal MEDGEN (St [#/area] in x10E3/uL Juan [facility]'s Blood by [facility], ) Microscopy high power field RDW 17.5 % Above high normal MEDGEN ([facility], ) Lymphs 12 % Normal (applies MEDGEN (St to non-numeric Juan C's results) [facility]) Neutrophils [#] 71 % Normal (applies MEDGEN ( St in Body fluid by to non-numeric Juan C's Manual count results) [facility]) Monocytes 9 % Normal (applies MEDGEN (St [#/volume] in to non-numeric Juan C's Cord blood results) [facility]) Eos 4 % Normal (applies MEDGEN (St to non-numeric Juan C's results) [facility]) Basos 0 % Normal (applies MEDGEN (St to non-numeric Juan C's results) [facility]) Neutrophils 8.2 Above high normal MEDGEN (St (Absolute) x10E3/uL [facility]) Monocytes(Absolu 1.0 Above high normal MEDGE N (St te) x10E3/uL [facility]) Lymphs 1.4 Normal (applies MEDGEN (St (Absolute) x10E3/uL to non-numeric Juan C's results) [facility]) Baso (Absolute) 0.0 Normal (applies MEDGEN ( St x10E3/uL to non-numeric Juan C's results) Medical, ) Eos (Absolute) 0.4 Normal (applies MEDGEN (S t x10E3/uL to non-numeric Juan C's results) Medical, ) Immature 4 % Normal (applies MEDGEN (St Granulocytes to non-numeric Juanc 's results) Medical, ) Immature Grans 0.4 Above high normal MEDGEN (St (Abs) x10E3/uL Juan [facility]'s [facility], ) NRBC 1 % Above high normal [facility] ([facility], ) ID Date Data Source [id number] 04/17/2020 12:00:00 AM EDT [facility] ([facility], ) Name Value Range Interpretation Code Description Data Supporting Source(s) Document(s ) Albumin, 741.5 Normal (applies to MEDGEN (St Urine ug/mL non-numeric Juan C's results) Medical, ) ID Date Data Source [id number] 04/17/2020 12:00:00 AM EDT [facility] ([facility], ) Name Value Range Interpretation Description Data Sup porting Code Source(s) Document(s ) INR 1.1 Normal (applies [facility]GEN (St to non-numeric Juan C's results) Medical, ) Prothrombin 11.4 sec Normal (applies MEDGEN (St Time to non-numeric Juan C's results) Medical, ) aPTT 28 sec Normal (applies MEDGEN (St to non-numeric Juan C's results) Medical, ) ID Date Data Source [id number] 04/17/2020 12:00:00 AM EDT [facility] ([facility], ) Name Value Range Interpretation Code Description Data Supporting Source(s) Document(s ) Creatinine 74.9 mg/dL Normal (applies to MEDGEN (S t , Urine non-numeric Juan C's results) Medical, ) Protein,To 185.1 Normal (applies to MEDGEN (St ruth,Urine mg/dL non-numeric Juan C's results) Medical, ) Protein/Cr 2471 mg/g Above high normal MEDGEN (St eat Ratio creat [facility], ) ID Date Data Source [id number] 04/17/2020 12:00:00 AM EDT [facility] ([facility], ) Name Value Range Interpretation Description [...] results) Medical, ) ID Date Data Source [id number] 04/17/2020 12:00:00 AM EDT MEDGEN ([facility] [...] MEDGEN (St to non-numeric Juan C's results) [facility], ) Bacteria Few Normal (applies MEDGEN (St [Presence] in to non-numeric Juan C's Prostatic results) [facility], ) fluid by Light microscopy ID Date Data Source [id number] 04/17/2020 12:00:00 AM EDT [facility] ([facility], ) Name Value Range Interpretation Description Data Sup porting Code Source(s) Document(s ) Glucose 89 mg/dL Normal (applies MEDGEN (St [Mass/volume] in to non-numeric Juan C's Urine collected for results) [facility], unspecified ) duration Urea nitrogen 47 mg/dL Above high MEDGEN (St [Mass/volume] in normal Juan C's Serum or Plasma [facility], ) Creatinine 4.60 Above high MEDGEN (St [Interpretation] in mg/dL normal Juan C's Urine [facility], ) eGFR If NonAfricn 12 Below low normal MEDGE N (St Am mL/min/1 [facility] [address], ) eGFR If Africn Am 13 Below low normal MEDGE N (St mL/min/1 [facility] .73 [facility], ) Sodium 136 Normal (applies MEDGEN (St [Moles/volume] in mmol/L to non-numeric Juan C's Serum or Plasma results) [facility], ) BUN/Creatinine 10 Normal (applies MEDGEN (S t Ratio to non-numeric Juan C's results) [facility], ) Potassium 4.8 Normal (applies MEDGEN (St [Mass/volume] in mmol/L to non-numeric Juan C's Blood results) [facility], ) Chloride 107 Above high MEDGEN (St [Moles/volume] in mmol/L normal Juan C's Serum or Plasma [facility], ) Carbon dioxide, 19 Below low normal MEDGEN (St total mmol/L Juan C's [Moles/volume] in Medical, Serum or Plasma PC) Calcium 8.6 Normal (applies MEDGEN (St [Moles/volume] in mg/dL to non-numeric Juan C's Urine collected for results) [facility], unspecified ) duration Protein 8.7 g/dL Above high MEDGEN (St [Mass/volume] in normal Juan C's Serum or Plasma [facility], ) Microalbumin 4.0 g/dL Normal (applies MEDGEN (St [Mass/time] in to non-numeric Juan C's Urine collected for results) Medical, unspecified ) duration Globulin, Total 4.7 g/dL Above high MEDGEN (St normal [facility], ) A/G Ratio 0.9 Below low normal MEDGEN ([facility], ) Bilirubin.total 0.2 Normal (applies MEDGEN ( St [Mass/volume] in mg/dL to non-numeric Juan C's Serum or Plasma results) [facility], ) Alkaline 75 IU/L Normal (applies MEDGEN (St phosphatase to non-numeric Juan C's [Enzymatic results) Medical, activity/volume] in ) Serum, Plasma or Blood Aspartate 20 IU/L Normal (applies MEDGEN (St aminotransferase to non-numeric Juan C's [Enzymatic results) [facility], activity/volume] in ) Serum or Plasma Alanine 57 IU/L Above high MEDGEN (St aminotransferase normal Juan C's [Enzymatic Medical, activity/volume] in ) Serum or Plasma ID Date Data Source [id number] 04/17/2020 12:00:00 AM EDT [facility] ([facility], ) Name Value Range Interpretation Description Data Sup porting Code Source(s) Document(s ) Leukocytes 11.4 Above high normal MEDGEN (St [#/volume] in x10E3/uL Juan C's Blood by [facility], ) Automated count Erythrocytes 2.79 Below low normal MEDGEN (St [#/volume] in x10E6/uL Juan C's Blood by [facility], ) Automated count Hemoglobin 9.3 g/dL Below low normal MEDGEN (St [Mass/volume] in Juan C's Blood [facility], ) Hematocrit 27.3 % Below low normal MEDGEN (St [Volume Juan C's Fraction] of [facility], ) Blood by Automated count MCV 98 fL Above high normal MEDGEN ([facility], ) MCH 33.3 pg Above high normal MEDGEN ([facility], ) MCHC 34.1 Normal (applies MEDGEN (St g/dL to non-numeric Juan C's results) [facility]) RDW 17.5 % Above high normal MEDGEN ([facility], ) Neutrophils [#] 71 % Normal (applies MEDGEN ( St in Body fluid by to non-numeric Juan C's Manual count results) [facility], ) Platelets 146 Below low normal MEDGEN (St [#/area] in x10E3/uL Juan C's Blood by [facility], ) Microscopy high power field Lymphs 12 % Normal (applies MEDGEN (St to non-numeric Juan C's results) [facility], ) Monocytes 9 % Normal (applies MEDGEN (St [#/volume] in to non-numeric Juan C's Cord blood results) [facility], ) Eos 4 % Normal (applies MEDGEN (St to non-numeric Juan C's results) [facility], ) Neutrophils 8.2 Above high normal MEDGEN (St (Absolute) x10E3/uL Juan C's [facility], ) Basos 0 % Normal (applies MEDGEN (St to non-numeric Juan C's results) [facility], ) Lymphs 1.4 Normal (applies MEDGEN (St (Absolute) x10E3/uL to non-numeric Juan C's results) [facility], ) Monocytes(Absolu 1.0 Above high normal MEDGE N (St te) x10E3/uL [facility], ) Eos (Absolute) 0.4 Normal (applies MEDGEN (S t x10E3/uL to non-numeric Juan C's results) [facility], ) Baso (Absolute) 0.0 Normal (applies MEDGEN ( St x10E3/uL to non-numeric Juan C's results) [facility], ) Immature 4 % Normal (applies MEDGEN (St Granulocytes to non-numeric Juan C's results) [facility], ) Immature Grans 0.4 Above high normal MEDGEN (St (Abs) x10E3/uL Juan C's [facility], ) NRBC 1 % Above high normal [facility] ([facility], ) ID Date Data Source [id number] 04/17/2020 12:00:00 AM EDT [facility] ([facility], ) Name Value Range Interpretation Code Description Data Supporting Source(s) Document(s ) Albumin, 741.5 Normal (applies to MEDGEN (St Urine ug/mL non-numeric Juan C's results) [facility], ) ID Date Data Source [id number] 04/17/2020 12:00:00 AM EDT [facility] ([facility], ) Name Value Range Interpretation Description Data Sup porting Code Source(s) Document(s ) INR 1.1 Normal (applies MEDGEN (St to non-numeric Juan C's results) [facility], ) Prothrombin 11.4 sec Normal (applies MEDGEN (St Time to non-numeric Juan C's results) Medical, PC) aPTT 28 sec Normal (applies MEDGEN (St to non-numeric Juan C's results) Medical, ) ID Date Data Source [id number] 04/17/2020 12:00:00 AM EDT [facility] ([facility] [...] C's Medical, ) ID Date Data Source [id number] 04/17/2020 12:00:00 AM EDT [facility] ([facility] [...] results) Medical, PC) ID Date Data Source [id number] 04/17/2020 12:00:00 AM EDT [facility] ([facility], ) Name Value Range Interpretation Description [...] by Light microscopy ID Date Data Source [id number] 04/17/2020 12:00:00 AM EDT [facility] ([facility], ) Name Value Range Interpretation Description [...] [Interpretation] in mg/dL normal Juan C's Urine [facility], ) eGFR If NonAfricn 12 Below [...] mmol/L to non-numeric Juan C's Blood results) [facility], ) Chloride 107 Above high MEDGEN (St [Moles/volume] in mmol/L normal Juan C's Serum or Plasma [facility], ) Carbon dioxide, 19 Below low normal MEDGEN (St total mmol/L Juan C's [Moles/volume] in Medical, Serum or Plasma PC) Calcium 8.6 Normal (applies MEDGEN (St [Moles/volume] in mg/dL to non-numeric Juan C's Urine collected for results) [facility], unspecified ) duration Protein 8.7 g/dL Above high MEDGEN (St [Mass/volume] in normal Juan C's Serum or Plasma [facility], ) Microalbumin 4.0 g/dL Normal (applies MEDGEN (St [Mass/time] in to non-numeric Juan C's Urine collected for results) [facility], unspecified ) duration Globulin, Total 4.7 g/dL Above high MEDGEN (St normal [facility], ) A/G Ratio 0.9 Below low normal [facility], ) Bilirubin.total 0.2 Normal (applies MEDGEN ( [...] Serum or Plasma ID Date Data Source [id number] 04/17/2020 12:00:00 AM EDT [facility] ([facility], ) Name Value Range Interpretation Description Data Sup porting Code Source(s) Document(s ) Leukocytes 11.4 Above high normal MEDGEN (St [#/volume] in x10E3/uL Juan C's Blood by [facility], ) Automated count Erythrocytes 2.79 Below low normal MEDGEN (St [#/volume] in x10E6/uL Juan C's Blood by [facility], ) Automated count Hemoglobin 9.3 g/dL Below low normal MEDGEN (St [Mass/volume] in Juan C's Blood [facility], ) Hematocrit 27.3 % Below low normal MEDGEN (St [Volume Juan C's Fraction] of [facility], ) Blood by Automated count MCV 98 fL Above high normal [facility], ) MCH 33.3 pg Above high normal MEDGEN ([facility], ) MCHC 34.1 Normal (applies MEDGEN (St g/dL to non-numeric Juan C's results) [facility]) RDW 17.5 % Above high normal MEDGEN ([facility], ) Platelets 146 Below low normal MEDGEN (St [#/area] in x10E3/uL Juan C's Blood by [facility], ) Microscopy high power field Neutrophils [#] 71 % Normal (applies MEDGEN ( St in Body fluid by to non-numeric Juan C's Manual count results) [facility]) Lymphs 12 % Normal (applies MEDGEN (St to non-numeric Juan C's results) [facility]) Monocytes 9 % Normal (applies MEDGEN (St [#/volume] in to non-numeric Juan C's Cord blood results) [facility]) Eos 4 % Normal (applies MEDGEN (St to non-numeric Juan C's results) [facility]) Basos 0 % Normal (applies MEDGEN (St to non-numeric Juan C's results) [facility]) Neutrophils 8.2 Above high normal MEDGEN (St (Absolute) x10E3/uL Juan C's [facility]) Lymphs 1.4 Normal (applies MEDGEN (St (Absolute) x10E3/uL to non-numeric Juan C's results) [facility]) Monocytes(Absolu 1.0 Above high normal MEDGE N (St te) x10E3/uL [facility]) Eos (Absolute) 0.4 Normal (applies MEDGEN (S t x10E3/uL to non-numeric Juan C's results) [facility]) Baso (Absolute) 0.0 Normal (applies MEDGEN ( St x10E3/uL to non-numeric Juan C's results) Medical, ) Immature 4 % Normal (applies MEDGEN (St Granulocytes to non-numeric Juan C's results) Medical, ) Immature Grans 0.4 Above high normal MEDGEN (St (Abs) x10E3/uL Juan C's [facility], ) NRBC 1 % Above high normal [facility] ([facility], ) ID Date Data Source [id number] 04/17/2020 12:00:00 AM EDT [facility] ([facility], ) Name Value Range Interpretation Code Description Data Supporting Source(s) Document(s ) Albumin, 741.5 Normal (applies to MEDGEN (St Urine ug/mL non-numeric Juan C's results) Medical, ) ID Date Data Source [id number] 04/17/2020 12:00:00 AM EDT [facility] ([facility], ) Name Value Range Interpretation Description Data Sup porting Code Source(s) Document(s ) INR 1.1 Normal (applies MEDGEN (St to non-numeric Juan C's results) Medical, ) Prothrombin 11.4 sec Normal (applies MEDGEN (St Time to non-numeric Juan C's results) Medical, ) aPTT 28 sec Normal (applies MEDGEN (St to non-numeric Juan C's results) [facility], ) ID Date Data Source [id number] 04/17/2020 12:00:00 AM EDT [facility] ([facility], ) Name Value Range Interpretation Code Description Data Supporting Source(s) Document(s ) Protein,To 185.1 Normal (applies to MEDGEN (St ruth,Urine mg/dL non-numeric Juan C's results) Medical, ) Creatinine 74.9 mg/dL Normal (applies to MEDGEN (S t , Urine non-numeric Juan C's results) Medical, ) Protein/Cr 2471 mg/g Above high normal MEDGEN (St eat Ratio creat [facility], ) ID Date Data Source [id number] 04/17/2020 12:00:00 AM EDT [facility] ([facility], ) Name Value Range Interpretation Description [...] results) Medical, ) ID Date Data Source [id number] 04/17/2020 12:00:00 AM EDT MEDGEN ([facility] [...] by Light microscopy ID Date Data Source [id number] 04/17/2020 12:00:00 AM EDT MED[facility] ([facility], ) Name Value Range Interpretation Description [...] low normal MEDGE N (St [facility]/min/[facility], ) Creatinine 4.60 Above high MEDGEN (St [Interpretation] in mg/dL normal Juan C's Urine Medical, ) BUN/Creatinine 10 Normal (applies MEDGEN (S t Ratio to non-numeric Juan C's results) Medical, ) eGFR If Africn Am 13 Below low normal MEDGE N (St mL/min/1 [facility] 73 [facility], ) Sodium 136 Normal (applies MEDGEN (St [Moles/volume] in mmol/L to non-numeric Juan C's Serum or Plasma results) Medical, ) Chloride 107 Above high MEDGEN (St [Moles/volume] in mmol/L normal Juan C's Serum or Plasma [facility], ) Potassium 4.8 Normal (applies MEDGEN [...] Above high MEDGEN (St normal Juan C's [facility], ) A/G Ratio 0.9 Below low normal MEDGEN ([facility], ) Bilirubin.total 0.2 Normal (applies MEDGEN ( St [Mass/volume] in mg/dL to non-numeric Juan C's Serum or Plasma results) [facility]) Alkaline 75 IU/L Normal (applies MEDGEN (St phosphatase to non-numeric Juan C's [Enzymatic results) [facility], activity/volume] in ) Serum, Plasma or Blood Aspartate 20 IU/L Normal (applies MEDGEN (St aminotransferase to non-numeric Juan C's [Enzymatic results) [facility], activity/volume] in ) Serum or Plasma Alanine 57 IU/L Above high MEDGEN (St aminotransferase normal Juan C's [Enzymatic Medical, activity/volume] in ) Serum or Plasma ID Date Data Source [id number] 04/17/2020 12:00:00 AM EDT [facility] ([facility] Name Value Range Interpretation Description Data Sup porting Code Source(s) Document(s ) Erythrocytes 2.79 Below low normal MEDGEN (St [#/volume] in x10E6/uL [facility] Blood by [facility]) Automated count Leukocytes 11.4 Above high normal MEDGEN (St [#/volume] in x10E3/uL [facility]'s Blood by [facility]) Automated count Hemoglobin 9.3 g/dL Below low normal MEDGEN (St [Mass/volume] in [facility] Blood [facility]) Hematocrit 27.3 % Below low normal MEDGEN (St [Volume Juan C's Fraction] of [facility]) Blood by Automated count MCV 98 fL Above high normal [facility] ([facility], ) MCHC 34.1 Normal (applies MEDGEN (St g/dL to non-numeric Juan C's results) [facility]) MCH 33.3 pg Above high normal [facility] ([facility], ) RDW 17.5 % Above high normal [facility] ([facility], ) Neutrophils [#] 71 % Normal (applies MEDGEN ( St in Body fluid by to non-numeric Juan C's Manual count results) [facility]) Platelets 146 Below low normal MEDGEN (St [#/area] in x10E3/uL [facility]'s Blood by [facility]) Microscopy high power field Monocytes 9 % Normal (applies [facility]GEN (St [#/volume] in to non-numeric Juan C's Cord blood results) [facility], ) Lymphs 12 % Normal (applies MEDGEN (St to non-numeric Juan C's results) [facility], ) Eos 4 % Normal (applies [facility]GEN (St to non-numeric Juan C's results) [facility], ) Neutrophils 8.2 Above high normal MED[facility] (St (Absolute) x10E3/uL Juan C's [facility], ) Basos 0 % Normal (applies [facility]GEN (St to non-numeric Juan C's results) [facility], ) Lymphs 1.4 Normal (applies MEDGEN (St (Absolute) x10E3/uL to non-numeric Juan C's results) [facility], ) Monocytes(Absolu 1.0 Above high normal MEDGE N (St te) x10E3/uL [facility]'s [facility], ) Eos (Absolute) 0.4 Normal (applies MEDGEN (S t x10E3/uL to non-numeric Juan C's results) [facility], ) Immature 4 % Normal (applies [facility]GEN (St Granulocytes to non-numeric Juan C's results) [facility], ) Baso (Absolute) 0.0 Normal (applies MEDGEN ( St x10E3/uL to non-numeric Juan C's results) [facility], ) Immature Grans 0.4 Above high normal MEDGEN (St (Abs) x10E3/uL Juan C's [facility], ) NRBC 1 % Above high normal [facility] ([facility], ) ID Date Data Source [id number] 04/17/2020 12:00:00 AM EDT [facility] ([facility], ) Name Value Range Interpretation Code Description Data Supporting Source(s) Document(s ) Albumin, 741.5 Normal (applies to MEDGEN (St Urine ug/mL non-numeric Juan C's results) [facility], ) ID Date Data Source [id number] 04/17/2020 12:00:00 AM EDT [facility] ([facility], ) Name Value Range Interpretation Description Data Sup porting Code Source(s) Document(s ) INR 1.1 Normal (applies [facility]GEN (St to non-numeric Juan C's results) Medical, ) Prothrombin 11.4 sec Normal (applies [facility]GEN (St Time to non-numeric Juan C's results) [facility], ) aPTT 28 sec Normal (applies [facility] (St to non-numeric Juan C's results) Medical, PC) ID Date Data Source [id number] 04/17/2020 12:00:00 AM EDT [facility] ([facility] [...] C's Medical, ) ID Date Data Source [id number] 04/17/2020 12:00:00 AM EDT [facility] ([facility] [...] results) Medical, PC) ID Date Data Source [id number] 04/17/2020 12:00:00 AM EDT [facility] ([facility] [...] by Light microscopy ID Date Data Source [id number] 04/17/2020 12:00:00 AM EDT [facility] ([facility] [...] mmol/L normal Juan C's Serum or Plasma [facility], ) Carbon dioxide, 19 Below low normal MEDGEN (St total mmol/L Juan C's [Moles/volume] in Medical, Serum or Plasma PC) Calcium 8.6 Normal (applies [facility]GEN (St [Moles/volume] in mg/dL to non-numeric Juan C's Urine collected for results) [facility], unspecified ) duration Protein 8.7 g/dL Above high MEDGEN (St [Mass/volume] in normal Juan C's Serum or Plasma [facility], ) Microalbumin 4.0 g/dL Normal (applies [facility]GEN (St [Mass/time] in to non-numeric Juan C's Urine collected for results) [facility], unspecified ) duration Globulin, Total 4.7 g/dL Above high MEDGEN (St normal [facility], ) A/G Ratio 0.9 Below low normal [facility] ([facility], ) Bilirubin.total 0.2 Normal (applies [facility] ( St [Mass/volume] in mg/dL to non-numeric Juan C's Serum or Plasma results) [facility], ) Alkaline 75 IU/L Normal (applies [...] Serum or Plasma ID Date Data Source [id number] 04/17/2020 12:00:00 AM EDT [facility] (St [facility], ) Name Value Range Interpretation Description Data Sup porting Code Source(s) Document(s ) Leukocytes 11.4 Above high normal [facility] (St [#/volume] in x10E3/uL [facility] Blood by [facility], ) Automated count Erythrocytes 2.79 Below low normal [facility] (St [#/volume] in x10E6/uL [facility] Blood by [facility]) Automated count Hemoglobin 9.3 g/dL Below low normal [facility] (St [Mass/volume] in Juan C's Blood [facility], ) MCV 98 fL Above high normal [facility] ([facility], ) Hematocrit 27.3 % Below low normal [facility] (St [Volume Juan C's Fraction] of [facility]) Blood by Automated count MCH 33.3 pg Above high normal [facility] ([facility], ) MCHC 34.1 Normal (applies [facility]GEN (St g/dL to non-numeric Juan C's results) [facility]) Platelets 146 Below low normal [facility]GEN (St [#/area] in x10E3/uL [facility] Blood by [facility]) Microscopy high power field RDW 17.5 % Above high normal [facility] ([facility], ) Neutrophils [#] 71 % Normal (applies MEDGEN ( St in Body fluid by to non-numeric Juan C's Manual count results) [facility]) Lymphs 12 % Normal (applies [facility]GEN (St to non-numeric Juan C's results) [facility]) Monocytes 9 % Normal (applies [facility]GEN (St [#/volume] in to non-numeric Juan C's Cord blood results) [facility]) Basos 0 % Normal (applies [facility]GEN (St to non-numeric Juan C's results) [facility]) Eos 4 % Normal (applies [facility]GEN (St to non-numeric Juan C's results) [facility]) Neutrophils 8.2 Above high normal MEDGEN (St (Absolute) x10E3/uL [facility], ) Lymphs 1.4 Normal (applies MEDGEN (St (Absolute) x10E3/uL to non-numeric Juan C's results) [facility]) Monocytes(Absolu 1.0 Above high normal MEDGE N (St te) x10E3/uL [facility], ) Eos (Absolute) 0.4 Normal (applies MEDGEN (S t x10E3/uL to non-numeric [facility] C's results) [facility]) Baso (Absolute) 0.0 Normal (applies [facility]GEN ( St x10E3/uL to non-numeric Juan C's results) [facility]) Immature 4 % Normal (applies [facility] (St Granulocytes to non-numeric Juan C's results) [facility]) Immature Grans 0.4 Above high normal [facility] (St (Abs) x10E3/uL [facility], ) NRBC 1 % Above high normal [facility] ([facility], ) ID Date Data Source [id number] 04/06/2020 09:40:00 PM EDT [facility] Name Value Range Interpretation Description Data Sup porting Code Source(s) Document(s ) SARS [facility] CORONAVIRUS 2 RNA This lab was ordered by [facility] and reported by [facility]. ID Date Data Source [id number] 03/27/2020 06:50:00 PM EDT [facility] Name Value Range Interpretation Description Data Sup porting Code Source(s) Document(s ) SARS [facility] CORONAVIRUS 2 RNA This lab was ordered by [facility] and reported by [facility]. ID Date Data Source [id number] 03/22/2020 12:00:00 AM EDT [facility] ([facility], ) Name Value Range Interpretation Code Description Data Lisa rce(s) Supporting Document(s ) ID Date Data Source [id number] 03/22/2020 12:00:00 AM EDT [facility] ([facility], ) Name Value Range Interpretation Code Description Data Supporting Source(s) Document(s ) PTH, Intact 10 pg/mL Below low normal [facility] ([place], ) ID Date Data Source [id number] 03/22/2020 12:00:00 AM EDT [facility] ([facility], ) Name Value Range Interpretation Code Description Data Supporting Source(s) Document(s ) Ferritin, 349 ng/mL Normal (applies to [facility] (St Serum non-numeric Juan C's results) Medical, ) ID Date Data Source [id number] 03/22/2020 12:00:00 AM EDT [facility] ([facility], ) Name Value Range Interpretation Description Data Sup porting Code Source(s) Document(s ) Deprecated 5.4 mg/dL Above high normal [facility] (St Phosphorus Juan C's [Mass/time] in Medical, ) 24 hour Urine ID Date Data Source [id number] 03/22/2020 12:00:00 AM EDT [facility] ([facility], ) Name Value Range Interpretation Code Description Data Lisa rce(s) Supporting Document(s ) RAGINI Normal (applies to [facility] (St Interpreta non-numeric results) [facility]'s M edical, tion:U PC) ID Date Data Source [id number] 03/22/2020 12:00:00 AM EDT [facility] ([facility]) Name Value Range Interpretation Description Data Sup porting Code Source(s) Document(s ) Vitamin D, 30.6 Normal (applies to [facility] (St 25-Hydroxy ng/mL non-numeric Juan C's results) Medical, ) ID Date Data Source [id number] 03/22/2020 12:00:00 AM EDT [facility] ([facility]) Name Value Range Interpretation Description Data Sup porting Code Source(s) Document(s ) Free [place] 141.85 Above high normal [facility] (St Lt mg/L Juan C's [facility], PC) Free Lambda 110.44 Above high normal [facility] (St Lt mg/L Juan C's [facility], PC) [place] 1.28 Normal (applies to [facility] (S t a Ratio,U non-numeric Juan C's results) Medical, ) ID Date Data Source [id number] 03/22/2020 12:00:00 AM EDT [facility] ([facility]) Name Value Range Interpretation Description Data Sup porting Code Source(s) Document(s ) Free [place] 41.1 mg/L Above high normal [facility] (St Lt Chains,S [facility], PC) Free Lambda 176.0 mg/L Above high normal [facility] (S t Lt Chains,S [facility], PC) [place] 0.23 Below low normal [facility] (St a Ratio,S [facility], PC) ID Date Data Source [id number] 03/22/2020 12:00:00 AM EDT [facility] ([facility]) Name Value Range Interpretation Code Description Data Supporting Source(s) Document(s ) Creatinine 94.7 mg/dL Normal (applies to [facility]GEN (S t , Urine non-numeric Juan C's results) Medical, ) Protein/Cr 1072 mg/g Above high normal [facility] (St eat Ratio creat [facility], PC) ID Date Data Source [id number] 03/22/2020 12:00:00 AM EDT [facility] ([facility], ) Name Value Range Interpretation Description Data Sup porting Code Source(s) Document(s ) Immunofixation Normal (applies MEDGEN (S t Result, Serum to non-numeric Juan C's results) [facility], ) Immunoglobulin G, 3867 Above high normal MEDG EN (St Qn, Serum mg/dL [facility]) Immunoglobulin A, 17 mg/dL Below low normal MEDGE N (St Qn, Serum [facility]) Immunoglobulin M, 8 mg/dL Below low normal MEDGE N (St Qn, Serum [facility], ) ID Date Data Source [id number] 03/22/2020 12:00:00 AM EDT [facility] ([facility], ) Name Value Range Interpretation Description Data Sup porting Code Source(s) Document(s ) Iron 248 ug/dL Below low normal [facility] (St Bind.Cap.(TIBC Juan C's ) [facility], ) UIBC 172 ug/dL Normal (applies to [facility] (St non-numeric Juan C's results) [facility]) Iron 76 ug/dL Normal (applies to [facility] (St [Mass/volume] non-numeric Juan C's in Serum or results) [facility], ) Plasma Iron 31 % Normal (applies to [facility]GEN (St saturation non-numeric Juan C's [Mass results) [facility]) Fraction] in Serum or Plasma ID Date Data Source [id number] 03/22/2020 12:00:00 AM EDT [facility] ([facility], ) Name Value Range Interpretation Description Data Sup porting Code Source(s) Document(s ) Protein,Tot 101.5 Normal (applies to MEDGEN (S t al,Urine mg/dL non-numeric Juan C's results) [facility], ) Albumin, U 36.2 % Normal (applies to [facility] (St non-numeric Juan C's results) [facility], ) Alpha-1-Nadine 5.7 % Normal (applies to MEDGEN (S t bulin, U non-numeric Juan C's results) [facility]) Alpha-2-Nadine 12.8 % Normal (applies to MEDGEN (S t bulin, U non-numeric Juan C's results) [facility], ) Beta 29.7 % Normal (applies [...] results) Medical, PC) ID Date Data Source [id number] 03/22/2020 12:00:00 AM EDT [facility] ([facility]) Name Value Range Interpretation Description Data Sup porting Code Source(s) Document(s ) Microalbumin 4.0 g/dL Normal (applies [facility] (St [Mass/time] in to non-numeric Juan C's Urine collected results) Medical, for unspecified PC) duration Jaepc-2-Nmqpmgav 0.2 g/dL Normal (applies [facility] (St to non-numeric Juan C's results) Medical, PC) Emvmk-8-Lbpeedbg 0.8 g/dL Normal (applies MEDGEN (St to [...] note: Normal (applies [facility]GEN (St to non-numeric Jaun C's results) Medical, PC) PDF . Normal (applies [facility] (St to non-numeric Juan C's results) Medical, PC) ID Date Data Source [id number] 03/22/2020 12:00:00 AM EDT [facility] ([facility] [...] results) Medical, PC) ID Date Data Source [id number] 03/22/2020 12:00:00 AM EDT [facility] ([facility] [...] by Light microscopy ID Date Data Source [id number] 03/22/2020 12:00:00 AM EDT [facility] ([facility] [...] in normal Juan C's Serum or Plasma [facility], ) Microalbumin 3.9 g/dL Normal (applies [facility]GEN (St [Mass/time] in to non-numeric Juan C's Urine collected for results) Medical, unspecified ) duration A/G Ratio 0.8 Below low normal [facility] ([facility], ) Globulin, Total 5.2 g/dL Above high MEDGEN (St normal [facility], ) Bilirubin.total 0.4 Normal (applies MEDGEN ( St [Mass/volume] in mg/dL to non-numeric Juan C's Serum or Plasma results) [facility], ) Alkaline 63 IU/L Normal (applies [...] Serum or Plasma ID Date Data Source [id number] 03/22/2020 12:00:00 AM EDT [facility] ([facility], ) Name Value Range Interpretation Description Data Sup porting Code Source(s) Document(s ) Leukocytes 11.7 Above high normal MEDGEN (St [#/volume] in x10E3/uL Juan C's Blood by [facility], ) Automated count Erythrocytes 2.47 Below lower panic MEDGEN (S t [#/volume] in x10E6/uL limits Juan C's Blood by [facility], ) Automated count Hemoglobin 8.2 g/dL Below low normal [facility] (St [Mass/volume] in Juan C's Blood [facility], ) Hematocrit 23.3 % Below low normal [facility] (St [Volume Juan C's Fraction] of [facility], ) Blood by Automated count MCV 94 fL Normal (applies MEDGEN (St to non-numeric Juan C's results) [facility]) MCH 33.2 pg Above high normal [facility] ([facility], ) MCHC 35.2 Normal (applies [facility]GEN (St g/dL to non-numeric Juan C's results) [facility], ) RDW 19.0 % Above high normal [facility] ([facility], ) Platelets 198 Normal (applies MEDGEN (St [#/area] in x10E3/uL to non-numeric Juan C's Blood by results) [facility], ) Microscopy high power field Neutrophils [#] 54 % Normal (applies MEDGEN ( St in Body fluid by to non-numeric Juan C's Manual count results) [facility], ) Lymphs 13 % Normal (applies MEDGEN (St to non-numeric Juan C's results) [facility], ) Monocytes 16 % Normal (applies MEDGEN (St [#/volume] in to non-numeric Juan C's Cord blood results) [facility], ) Eos 11 % Normal (applies MEDGEN (St to non-numeric Juan C's results) [facility], ) Basos 1 % Normal (applies [facility]GEN (St to non-numeric Juan C's results) [facility], ) Neutrophils 6.4 Normal (applies MEDGEN (St (Absolute) x10E3/uL to non-numeric Juan C's results) [facility], ) Lymphs 1.5 Normal (applies MEDGEN (St (Absolute) x10E3/uL to non-numeric Juan C's results) [facility], ) Monocytes(Absolu 1.9 Above high normal MEDGE N (St te) x10E3/uL Juan C's [facility], ) Eos (Absolute) 1.3 Above high normal MEDGEN (St x10E3/uL Juan C's [facility], ) Baso (Absolute) 0.1 Normal (applies MEDGEN ( St x10E3/uL to non-numeric Juan C's results) [facility], ) Immature 5 % Normal (applies MEDGEN (St Granulocytes to non-numeric Juan C's results) [facility]) Immature Grans 0.6 Above high normal MEDGEN (St (Abs) x10E3/uL Juan C's [facility], ) NRBC 4 % Above high normal [facility] ([facility], ) ID Date Data Source [id number] 03/22/2020 12:00:00 AM EDT [facility] ([facility], ) Name Value Range Interpretation Code Description Data Lisa rce(s) Supporting Document(s ) ID Date Data Source [id number] 03/22/2020 12:00:00 AM EDT [facility] ([facility], ) Name Value Range Interpretation Code Description Data Supporting Source(s) Document(s ) PTH, Intact 10 pg/mL Below low normal [facility] ([facility], ) ID Date Data Source [id number] 03/22/2020 12:00:00 AM EDT [facility] ([facility], ) Name Value Range Interpretation Code Description Data Supporting Source(s) Document(s ) Ferritin, 349 ng/mL Normal (applies to MEDGEN (St Serum non-numeric Juan C's results) [facility], ) ID Date Data Source [id number] 03/22/2020 12:00:00 AM EDT [facility] ([facility], ) Name Value Range Interpretation Description Data Sup porting Code Source(s) Document(s ) Deprecated 5.4 mg/dL Above high normal [facility]GEN (St Phosphorus Juan C's [Mass/time] in [facility], ) 24 hour Urine ID Date Data Source [id number] 03/22/2020 12:00:00 AM EDT [facility] (St [facility], ) Name Value Range Interpretation Code Description Data Lisa rce(s) Supporting Document(s ) RAGINI Normal (applies to MEDGEN (St Interpreta non-numeric results) Juan C's M edical, tion:U ) ID Date Data Source [id number] 03/22/2020 12:00:00 AM EDT [facility] ([facility], ) Name Value Range Interpretation Description Data Sup porting Code Source(s) Document(s ) Vitamin D, 30.6 Normal (applies to MEDGEN (St 25-Hydroxy ng/mL non-numeric Juan C's results) [facility], ) ID Date Data Source [id number] 03/22/2020 12:00:00 AM EDT [facility] ([facility], ) Name Value Range Interpretation Description Data Sup porting Code Source(s) Document(s ) Free [place] 141.85 Above high normal MEDGEN (St Lt mg/L Juan C's [facility], ) Free Lambda 110.44 Above high normal MEDGEN (St Lt mg/L Juan C's [facility], ) [place] 1.28 Normal (applies to MEDGEN (S t a Ratio,U non-numeric Juan C's results) [facility], ) ID Date Data Source [id number] 03/22/2020 12:00:00 AM EDT [facility] ([facility], ) Name Value Range Interpretation Description Data Sup porting Code Source(s) Document(s ) Free [place] 41.1 mg/L Above high normal MEDGEN (St Lt Chains,S [facility], ) Free Lambda 176.0 mg/L Above high normal [facility]GEN (S t Lt [facility], ) [place] 0.23 Below low normal [facility]GEN (St a Ratio,S [facility], ) ID Date Data Source [id number] 03/22/2020 12:00:00 AM EDT [facility] ([facility], ) Name Value Range Interpretation Code Description Data Supporting Source(s) Document(s ) Creatinine 94.7 mg/dL Normal (applies to MEDGEN (S t , Urine non-numeric Juan C's results) [facility], ) Protein/Cr 1072 mg/g Above high normal MEDGEN (St eat Ratio creat [facility], ) ID Date Data Source [id number] 03/22/2020 12:00:00 AM EDT [facility] ([facility], ) Name Value Range Interpretation Description Data Sup porting Code Source(s) Document(s ) Immunofixation Normal (applies MEDGEN (S t Result, Serum to non-numeric Juan C's results) [facility]) Immunoglobulin G, 3867 Above high normal MEDG EN (St Qn, Serum mg/dL [facility]) Immunoglobulin A, 17 mg/dL Below low normal MEDGE N (St Qn, Serum [facility], ) Immunoglobulin M, 8 mg/dL Below low normal MEDGE N (St Qn, Serum [facility], ) ID Date Data Source [id number] 03/22/2020 12:00:00 AM EDT [facility] ([facility], ) Name Value Range Interpretation Description Data Sup porting Code Source(s) Document(s ) Iron 248 ug/dL Below low normal MEDGEN (St Bind.Cap.(TIBC Juan C's ) [facility], ) UIBC 172 ug/dL Normal (applies to MEDGEN (St non-numeric Juan C's results) [facility], ) Iron 76 ug/dL Normal (applies to [facility]GEN (St [Mass/volume] non-numeric Juan C's in Serum or results) Medical, ) Plasma Iron 31 % Normal (applies to [facility]GEN (St saturation non-numeric Juan C's [Mass results) Medical, ) Fraction] in Serum or Plasma ID Date Data Source [id number] 03/22/2020 12:00:00 AM EDT [facility] ([facility] [...] results) Medical, ) ID Date Data Source [id number] 03/22/2020 12:00:00 AM EDT [facility] ([facility], ) Name Value Range Interpretation Description Data Sup porting Code Source(s) Document(s ) Microalbumin 4.0 g/dL Normal (applies MEDGEN (St [Mass/time] in to non-numeric Juan C's Urine collected results) Medical, for unspecified PC) duration Blpms-2-Ibnuunml 0.2 g/dL Normal (applies MEDGEN (St to non-numeric Juan C's results) Medical, ) Iepes-8-Zgstuzlo 0.8 g/dL Normal (applies MEDGEN (St to non-numeric Juan C's results) Medical, PC) Beta globulin 0.7 g/dL Normal (applies MEDGEN (St [Mass/volume] in to non-numeric Juan C's Urine by results) Medical, Electrophoresis PC) Gamma globulin 3.5 g/dL Above high normal MEDGEN (St [Mass/volume] by Juan C's Electrophoresis in Medical, Urine collected PC) for unspecified duration M-Kevyn 3.2 g/dL Above high normal [facility] ([place], [facility]) Globulin, Total 5.1 g/dL Above high normal [facility] ([place], [facility]) A/G Ratio 0.8 Normal (applies MEDGEN (St to non-numeric Juan C's results) Medical, PC) Please note: Normal (applies MEDGEN (St to non-numeric Juan C's results) Medical, PC) PDF . Normal (applies MEDGEN (St to non-numeric [facility]'s results) Medical, PC) ID Date Data Source [id number] 03/22/2020 12:00:00 AM EDT MEDGEN ([facility] [...] results) Medical, PC) ID Date Data Source [id number] 03/22/2020 12:00:00 AM EDT MEDGEN ([facility] [...] results) Medical, PC) ID Date Data Source [id number] 03/22/2020 12:00:00 AM EDT MEDGEN ([facility] [...] low normal MEDGE N (St Am mL/min/1 [facility] [address], ) BUN/Creatinine 10 Normal (applies MEDGEN (S t Ratio to non-numeric Juan C's results) Medical, ) eGFR If Africn Am 10 Below low normal MEDGE N (St mL/min/1 Juan C's [address] [facility], ) Sodium 134 Normal (applies MEDGEN [...] Serum or Plasma ID Date Data Source [id number] 03/22/2020 12:00:00 AM EDT MEDGEN ([facility], ) Name Value Range Interpretation Description Data Sup porting Code Source(s) Document(s ) Leukocytes 11.7 Above high normal MEDGEN (St [#/volume] in x10E3/uL Juan C's Blood by [facility], ) Automated count Erythrocytes 2.47 Below lower panic MEDGEN (S t [#/volume] in x10E6/uL limits Juan C's Blood by [facility], ) Automated count Hemoglobin 8.2 g/dL Below low normal MEDGEN (St [Mass/volume] in Juan C's Blood [facility], ) Hematocrit 23.3 % Below low normal MEDGEN (St [Volume Juan C's Fraction] of [facility], ) Blood by Automated count MCV 94 fL Normal (applies MEDGEN (St to non-numeric Juan C's results) [facility], ) MCH 33.2 pg Above high normal MEDGEN ([facility], ) MCHC 35.2 Normal (applies MEDGEN (St g/dL to non-numeric Juan C's results) [facility], ) RDW 19.0 % Above high normal MEDGEN ([facility], ) Platelets 198 Normal (applies MEDGEN (St [#/area] in x10E3/uL to non-numeric Juan C's Blood by results) [facility]) Microscopy high power field Neutrophils [#] 54 % Normal (applies MEDGEN ( St in Body fluid by to non-numeric Juan C's Manual count results) [facility], ) Lymphs 13 % Normal (applies MEDGEN (St to non-numeric Juan C's results) [facility]) Monocytes 16 % Normal (applies MEDGEN (St [#/volume] in to non-numeric Juan C's Cord blood results) [facility], ) Eos 11 % Normal (applies MEDGEN (St to non-numeric Juan C's results) [facility]) Neutrophils 6.4 Normal (applies MEDGEN (St (Absolute) x10E3/uL to non-numeric Juan C's results) [facility], ) Basos 1 % Normal (applies MEDGEN (St to non-numeric Juan C's results) [facility]) Lymphs 1.5 Normal (applies MEDGEN (St (Absolute) [...] ([facility], ) ID Date Data Source [id number] 03/22/2020 12:00:00 AM EDT [facility] ([facility], ) Name Value Range Interpretation Code Description Data Lisa rce(s) Supporting Document(s ) ID Date Data Source [id number] 03/22/2020 12:00:00 AM EDT [facility] ([facility], ) Name Value Range Interpretation Code Description Data Supporting Source(s) Document(s ) PTH, Intact 10 pg/mL Below low normal [facility] ([facility], [facility]) ID Date Data Source [id number] 03/22/2020 12:00:00 AM EDT [facility] ([facility], ) Name Value Range Interpretation Code Description Data Supporting Source(s) Document(s ) Ferritin, 349 ng/mL Normal (applies to MEDGEN (St Serum non-numeric Juan C's results) Medical, ) ID Date Data Source [id number] 03/22/2020 12:00:00 AM EDT [facility] ([facility], ) Name Value Range Interpretation Description Data Sup porting Code Source(s) Document(s ) Deprecated 5.4 mg/dL Above high normal MEDGEN (St Phosphorus Juan C's [Mass/time] in Medical, PC) 24 hour Urine ID Date Data Source [id number] 03/22/2020 12:00:00 AM EDT [facility] ([facility], ) Name Value Range Interpretation Code Description Data Lisa rce(s) Supporting Document(s ) ID Date Data Source [id number] 03/22/2020 12:00:00 AM EDT [facility] ([facility], [facility]) Name Value Range Interpretation Description Data Sup porting Code Source(s) Document(s ) Vitamin D, 30.6 Normal (applies to MEDGEN (St 25-Hydroxy ng/mL non-numeric Juan C's results) Medical, ) ID Date Data Source [id number] 03/22/2020 12:00:00 AM EDT [facility] ([facility], ) Name Value Range Interpretation Description Data Sup porting Code Source(s) Document(s ) Free Lambda 110.44 Above high normal MEDGEN (St Lt mg/L Juan C's [facility], PC) Free [place] 141.85 Above high normal MEDGEN (St Lt mg/L Juan C's [facility], PC) [place] 1.28 Normal (applies to MEDGEN (S t a Ratio,U non-numeric Juan C's results) [facility], ) ID Date Data Source [id number] 03/22/2020 12:00:00 AM EDT MEDGEN ([facility], ) Name Value Range Interpretation Description Data Sup porting Code Source(s) Document(s ) Free [place] 41.1 mg/L Above high normal MEDGEN (St Lt Chains,S Juan C's [facility], PC) Free Lambda 176.0 mg/L Above high normal MEDGEN (S t Lt Chains,S Juan C's [facility], PC) [place] 0.23 Below low normal MEDGEN (St a Ratio,S [facility], ) ID Date Data Source [id number] 03/22/2020 12:00:00 AM EDT MEDGEN ([facility] 's [facility], ) Name Value Range Interpretation Code Description Data Supporting Source(s) Document(s ) Creatinine 94.7 mg/dL Normal (applies to MEDGEN (S t , Urine non-numeric Juan C's results) [facility], ) Protein/Cr 1072 mg/g Above high normal MEDGEN (St eat Ratio creat Juan C's [facility], ) ID Date Data Source [id number] 03/22/2020 12:00:00 AM EDT [facility] ([facility], ) Name Value Range Interpretation Description Data Sup porting Code Source(s) Document(s ) Immunoglobulin G, 3867 Above high normal MEDG EN (St Qn, Serum mg/dL Juan C's [facility]) Immunoglobulin M, 8 mg/dL Below low normal MEDGE N (St Qn, Serum Juan C's [facility]) Immunoglobulin A, 17 mg/dL Below low normal MEDGE N (St Qn, Serum Juan C's [facility]) ID Date Data Source [id number] 03/22/2020 12:00:00 AM EDT [facility]GEN ([facility]) Name Value Range Interpretation Description Data Sup porting Code Source(s) Document(s ) Iron 248 ug/dL Below low normal MEDGEN (St Bind.Cap.(TIBC Juan C's ) [facility]) UIBC 172 ug/dL Normal (applies to MEDGEN (St non-numeric Juan C's results) [facility]) Iron 76 ug/dL Normal (applies to MEDGEN (St [Mass/volume] non-numeric Juan C's in Serum or results) [facility]) Plasma Iron 31 % Normal (applies to MEDGEN (St saturation non-numeric Juan C's [Mass results) [facility]) Fraction] in Serum or Plasma ID Date Data Source [id number] 03/22/2020 12:00:00 AM EDT MEDGEN ([facility] 's [facility], ) Name Value Range Interpretation Code Description Data Supporting Source(s) Document(s ) Protein,To 101.5 Normal (applies to MEDGEN (St ruth,Urine mg/dL non-numeric Juan C's results) [facility]) Albumin, U 36.2 % Normal (applies to MEDGEN (St non-numeric Juan C's results) [facility]) Alpha-1-Gl 5.7 % Normal (applies to MEDGEN (St obulin, U non-numeric Juan C's results) [facility]) Beta 29.7 % Normal (applies to MEDGEN (St Globulin, non-numeric Juan C's U results) [facility]) Alpha-2-Gl 12.8 % Normal (applies to MEDGEN (St obulin, U non-numeric Juan C's results) [facility]) Gamma 15.6 % Normal (applies to MEDGEN (St Globulin, non-numeric Juan C's U results) [facility]) M-Kevyn, % Comment: Normal (applies to MEDGEN (St non-numeric Juan C's results) [facility] ) PDF . Normal (applies to MEDGEN (St non-numeric Juan C's results) Medical, ) ID Date Data Source [id number] 03/22/2020 12:00:00 AM EDT MEDGEN ([facility], ) Name Value Range Interpretation Description Data Sup porting Code Source(s) Document(s ) Microalbumin 4.0 g/dL Normal (applies MEDGEN (St [Mass/time] in to non-numeric Juan C's Urine collected results) Medical, for unspecified PC) duration Rdlbh-1-Uimdkflh 0.2 g/dL Normal (applies MEDGEN (St to non-numeric Juan C's results) Medical, PC) Beta globulin 0.7 g/dL Normal (applies MEDGEN (St [Mass/volume] in to non-numeric Juan C's Urine by results) Medical, Electrophoresis PC) Gmdkk-6-Oqpjmbjm 0.8 g/dL Normal (applies MEDGEN (St to non-numeric Juan C's results) Medical, PC) Gamma globulin 3.5 g/dL Above high normal MEDGEN (St [Mass/volume] by Juan C's Electrophoresis in Medical, Urine collected PC) for unspecified duration M-Kevyn 3.2 g/dL Above high normal MEDGEN ([facility], ) Globulin, Total 5.1 g/dL Above high normal MEDGEN ([facility], ) A/G Ratio 0.8 Normal (applies MEDGEN (St to non-numeric Juan C's results) Medical, ) PDF . Normal (applies MEDGEN (St to non-numeric Juan C's results) Medical, ) ID Date Data Source [id number] 03/22/2020 12:00:00 AM EDT [facility], ) Name Value Range Interpretation Description [...] results) Medical, PC) ID Date Data Source [id number] 03/22/2020 12:00:00 AM EDT MEDGEN ([facility] [...] by Light microscopy ID Date Data Source [id number] 03/22/2020 12:00:00 AM EDT MEDGEN ([facility], ) Name Value Range Interpretation Description Data Sup porting Code Source(s) Document(s ) Glucose 88 mg/dL Normal (applies MEDGEN (St [Mass/volume] in to non-numeric Juan C's Urine collected for results) Medical, unspecified ) duration Urea nitrogen 61 mg/dL Above high MEDGEN (St [Mass/volume] in normal Juan C's Serum or Plasma [facility], ) Creatinine 5.97 Above high MEDGEN (St [Interpretation] in mg/dL normal Juan C's Urine [facility], ) eGFR If Africn Am 10 Below low normal MEDGE N (St mL/min/[address], ) eGFR If NonAfricn 9 Below low normal MEDGE N (St Am mL/min/[address], ) BUN/Creatinine 10 Normal (applies MEDGEN (S t Ratio to non-numeric Juan C's results) Medical, ) Sodium 134 Normal (applies MEDGEN (St [Moles/volume] in mmol/L to non-numeric Juan C's Serum or Plasma results) [facility], ) Potassium 4.1 Normal (applies MEDGEN (St [Mass/volume] in mmol/L to non-numeric Juan C's Blood results) [facility], ) Chloride 98 Normal (applies MEDGEN (St [Moles/volume] in mmol/L to non-numeric Juan C's Serum or Plasma results) [facility], ) Carbon dioxide, 20 Normal (applies [...] in normal Juan C's Serum or Plasma [facility], ) Globulin, Total 5.2 g/dL Above high MEDGEN (St normal Juan C's [facility], ) A/G Ratio 0.8 Below low normal MEDGEN ([facility], ) Bilirubin.total 0.4 Normal (applies MEDGEN ( St [Mass/volume] in mg/dL to non-numeric Juan C's Serum or Plasma results) [facility]) Aspartate 43 IU/L Above high MEDGEN (St [...] Serum or Plasma ID Date Data Source [id number] 03/22/2020 12:00:00 AM EDT [facility] ([facility], ) Name Value Range Interpretation Description Data Sup porting Code Source(s) Document(s ) Leukocytes 11.7 Above high normal MEDGEN (St [#/volume] in x10E3/uL Juan C's Blood by [facility]) Automated count Erythrocytes 2.47 Below lower panic MEDGEN (S t [#/volume] in x10E6/uL limits Juan C's Blood by [facility], ) Automated count Hematocrit 23.3 % Below low normal MEDGEN (St [Volume Juan C's Fraction] of [facility]) Blood by Automated count Hemoglobin 8.2 g/dL Below low normal MEDGEN (St [Mass/volume] in Juan C's Blood [facility], ) MCV 94 fL Normal (applies MEDGEN (St to non-numeric Juan C's results) [facility]) MCH 33.2 pg Above high normal MEDGEN ([facility], ) MCHC 35.2 Normal (applies MEDGEN (St g/dL to non-numeric Juan C's results) [facility]) Platelets 198 Normal (applies MEDGEN (St [#/area] in x10E3/uL to non-numeric Juan C's Blood by results) [facility]) Microscopy high power field RDW 19.0 % Above high normal MEDGEN ([facility], ) Neutrophils [#] 54 % Normal (applies MEDGEN ( St in Body fluid by to non-numeric Juan C's Manual count results) [facility]) Lymphs 13 % Normal (applies MEDGEN (St to non-numeric Juan C's results) [facility], ) Monocytes 16 % Normal (applies MEDGEN (St [#/volume] in to non-numeric Juan C's Cord blood results) [facility], ) Basos 1 % Normal (applies MEDGEN (St to non-numeric Juan C's results) [facility], ) Eos 11 % Normal (applies MEDGEN (St to non-numeric Juan C's results) [facility], ) Neutrophils 6.4 Normal (applies MEDGEN (St (Absolute) x10E3/uL to non-numeric Juan C's results) [facility], ) Lymphs 1.5 Normal (applies MEDGEN (St (Absolute) x10E3/uL to non-numeric Juan C's results) [facility], ) Monocytes(Absolu 1.9 Above high normal MEDGE N (St te) x10E3/uL [facility], ) Eos (Absolute) 1.3 Above high normal MEDGEN (St x10E3/uL [facility], ) Baso (Absolute) 0.1 Normal (applies MEDGEN ( St x10E3/uL to non-numeric Juan C's results) [facility], ) Immature 5 % Normal (applies MEDGEN (St Granulocytes to non-numeric Juan C's results) [facility], ) NRBC 4 % Above high normal [facility] ([facility], ) Immature Grans 0.6 Above high normal MEDGEN (St (Abs) x10E3/uL [facility], ) ID Date Data Source [id number] 03/22/2020 12:00:00 AM EDT MEDGEN ([facility] '[facility], ) Name Value Range Interpretation Description Data Sup porting Code Source(s) Document(s ) Vrgcw-6-Ttvymohi 0.2 g/dL Normal (applies MEDGEN (St to non-numeric Juan C's results) [facility], ) Microalbumin 4.0 g/dL Normal (applies MEDGEN (St [Mass/time] in to non-numeric Juan C's Urine collected results) [facility], for unspecified PC) duration Argfn-4-Yrfkdwsl 0.8 g/dL Normal (applies MEDGEN (St to non-numeric Juan C's results) [facility], ) Gamma globulin 3.5 g/dL Above high normal MEDGEN (St [Mass/volume] by Juan C's Electrophoresis in Medical, Urine collected PC) for unspecified duration Beta globulin 0.7 g/dL Normal (applies MEDGEN (St [Mass/volume] in to non-numeric Juan C's Urine by results) Medical, Electrophoresis PC) M-Kevyn 3.2 g/dL Above high normal [facility] ([facility], PC) Globulin, Total 5.1 g/dL Above high normal MEDGEN ([facility], ) A/G Ratio 0.8 Normal (applies MEDGEN (St to non-numeric Juan C's results) Medical, PC) PDF . Normal (applies MEDGEN (St to non-numeric Juan C's results) Medical, ) ID Date Data Source [id number] 03/22/2020 12:00:00 AM EDT MEDGEN ([facility], ) Name Value Range Interpretation Description [...] results) Medical, PC) ID Date Data Source [id number] 03/22/2020 12:00:00 AM EDT [facility] ([facility], ) Name Value Range Interpretation Description [...] results) Medical, PC) ID Date Data Source [id number] 03/22/2020 12:00:00 AM EDT MEDGEN ([facility] [...] in normal Juan C's Serum or Plasma [facility], ) eGFR If NonAfricn 9 Below [...] 5.2 g/dL Above high MEDGEN (St normal [facility], ) A/G Ratio 0.8 Below low normal MEDGEN ([facility], ) Bilirubin.total 0.4 Normal (applies MEDGEN ( [...] Serum or Plasma ID Date Data Source [id number] 03/22/2020 12:00:00 AM EDT MEDGEN ([facility], ) Name Value Range Interpretation Description Data Sup porting Code Source(s) Document(s ) Leukocytes 11.7 Above high normal MEDGEN (St [#/volume] in x10E3/uL Juan C's Blood by [facility], ) Automated count Erythrocytes 2.47 Below lower panic MEDGEN (S t [#/volume] in x10E6/uL limits Juan C's Blood by [facility], ) Automated count Hemoglobin 8.2 g/dL Below low normal MEDGEN (St [Mass/volume] in Juan C's Blood [facility], ) MCV 94 fL Normal (applies MEDGEN (St to non-numeric Juan C's results) [facility]) Hematocrit 23.3 % Below low normal MEDGEN (St [Volume Juan C's Fraction] of [facility], ) Blood by Automated count MCH 33.2 pg Above high normal [facility] ([facility], ) MCHC 35.2 Normal (applies MEDGEN (St g/dL to non-numeric Juan C's results) [facility]) RDW 19.0 % Above high normal [facility]GEN ([facility], ) Platelets 198 Normal (applies MEDGEN (St [#/area] in x10E3/uL to non-numeric Juan C's Blood by results) [facility]) Microscopy high power field Neutrophils [#] 54 % Normal (applies MEDGEN ( St in Body fluid by to non-numeric Juan C's Manual count results) [facility], ) Lymphs 13 % Normal (applies MEDGEN (St to non-numeric Juan C's results) [facility]) Monocytes 16 % Normal (applies MEDGEN (St [#/volume] in to non-numeric Juan C's Cord blood results) [facility]) Eos 11 % Normal (applies MEDGEN (St to non-numeric Juan C's results) [facility]) Neutrophils 6.4 Normal (applies MEDGEN (St (Absolute) x10E3/uL to non-numeric Juan C's results) [facility], ) Basos 1 % Normal (applies MEDGEN (St to non-numeric Juan C's results) [facility]) Lymphs 1.5 Normal (applies MEDGEN (St (Absolute) x10E3/uL to non-numeric Juan C's results) [facility]) Monocytes(Absolu 1.9 Above high normal MEDGE N (St te) x10E3/uL [facility]) Eos (Absolute) 1.3 Above high normal MEDGEN (St x10E3/uL [facility] Medical, ) Immature 5 % Normal (applies MEDGEN (St Granulocytes to non-numeric Juan C's results) [facility], ) Baso (Absolute) 0.1 Normal (applies MEDGEN ( St x10E3/uL to non-numeric Juan C's results) [facility], ) Immature Grans 0.6 Above high normal MEDGEN (St (Abs) x10E3/uL Juan C's [facility], ) NRBC 4 % Above high normal MEDGEN ([facility], ) ID Date Data Source [id number] 03/22/2020 12:00:00 AM EDT MEDGEN ([facility], ) Name Value Range Interpretation Code Description Data Lisa rce(s) Supporting Document(s ) ID Date Data Source [id number] 03/22/2020 12:00:00 AM EDT MEDGEN ([facility], ) Name Value Range Interpretation Code Description Data Supporting Source(s) Document(s ) PTH, Intact 10 pg/mL Below low normal MED[facility] ([facility], ) ID Date Data Source [id number] 03/22/2020 12:00:00 AM EDT MEDGEN ([facility], ) Name Value Range Interpretation Code Description Data Supporting Source(s) Document(s ) Ferritin, 349 ng/mL Normal (applies to MEDGEN (St Serum non-numeric Juan C's results) [facility], ) ID Date Data Source [id number] 03/22/2020 12:00:00 AM EDT MEDGEN ([facility], ) Name Value Range Interpretation Description Data Sup porting Code Source(s) Document(s ) Deprecated 5.4 mg/dL Above high normal MEDGEN (St Phosphorus Juan C's [Mass/time] in [facility], ) 24 hour Urine ID Date Data Source [id number] 03/22/2020 12:00:00 AM EDT MEDGEN ([facility], ) Name Value Range Interpretation Code Description Data Lisa rce(s) Supporting Document(s ) RAGINI Normal (applies to MEDGEN (St Interpreta non-numeric results) Juan C's M edical, tion:U PC) ID Date Data Source [id number] 03/22/2020 12:00:00 AM EDT MEDGEN ([facility], ) Name Value Range Interpretation Description Data Sup porting Code Source(s) Document(s ) Vitamin D, 30.6 Normal (applies to MEDGEN (St 25-Hydroxy ng/mL non-numeric Juan C's results) [facility], ) ID Date Data Source [id number] 03/22/2020 12:00:00 AM EDT MEDGEN ([facility], ) Name Value Range Interpretation Description Data Sup porting Code Source(s) Document(s ) Free [place] 141.85 Above high normal MEDGEN (St Lt mg/L Juan C's Chains,Ur [facility], ) Free Lambda 110.44 Above high normal MEDGEN (St Lt mg/L Juan C's [facility],Ur [facility], ) [place] 1.28 Normal (applies to MEDGEN (S t a Ratio,U non-numeric Juan C's results) [facility]) ID Date Data Source [id number] 03/22/2020 12:00:00 AM EDT MEDGEN ([facility], ) Name Value Range Interpretation Description Data Sup porting Code Source(s) Document(s ) Free [place] 41.1 mg/L Above high normal MEDGEN (St Lt Chains,S [facility], ) [place] 0.23 Below low normal MEDGEN (St a Ratio,S [facility], ) Free Lambda 176.0 mg/L Above high normal MEDGEN (S t Lt Chains,S [facility], ) ID Date Data Source [id number] 03/22/2020 12:00:00 AM EDT MEDGEN ([facility], ) Name Value Range Interpretation Code Description Data Supporting Source(s) Document(s ) Creatinine 94.7 mg/dL Normal (applies to MEDGEN (S t , Urine non-numeric Juan C's results) [facility]) Protein/Cr 1072 mg/g Above high normal MEDGEN (St eat Ratio creat [facility], ) ID Date Data Source [id number] 03/22/2020 12:00:00 AM EDT MEDGEN ([facility], ) Name Value Range Interpretation Description Data Sup porting Code Source(s) Document(s ) Immunofixation Normal (applies MEDGEN (S t Result, Serum to non-numeric Juan C's results) [facility], ) Immunoglobulin G, 3867 Above high normal MEDG EN (St Qn, Serum mg/dL Juan C's [facility]) Immunoglobulin A, 17 mg/dL Below low normal MEDGE N (St Qn, Serum Juan C's [facility]) Immunoglobulin M, 8 mg/dL Below low normal MEDGE N (St Qn, Serum Juan C's [facility]) ID Date Data Source [id number] 03/22/2020 12:00:00 AM EDT MEDGEN ([facility], ) Name Value Range Interpretation Description Data Sup porting Code Source(s) Document(s ) Iron 248 ug/dL Below low normal MEDGEN (St Bind.Cap.(TIBC Juan C's ) [facility]) UIBC 172 ug/dL Normal (applies to MEDGEN (St non-numeric Juan C's results) [facility]) Iron 76 ug/dL Normal (applies to MEDGEN (St [Mass/volume] non-numeric Juan C's in Serum or results) [facility]) Plasma Iron 31 % Normal (applies to MEDGEN (St saturation non-numeric Juan C's [Mass results) [facility]) Fraction] in Serum or Plasma ID Date Data Source [id number] 03/22/2020 12:00:00 AM EDT [facility] ([facility], ) Name Value Range Interpretation Description Data Sup porting Code Source(s) Document(s ) Protein,Tot 101.5 Normal (applies to MEDGEN (S t al,Urine mg/dL non-numeric Juan C's results) [facility]) Albumin, U 36.2 % Normal (applies to MEDGEN (St non-numeric Juan C's results) [facility]) Alpha-1-Nadine 5.7 % Normal (applies to MEDGEN (S t bulin, U non-numeric Juan C's results) [facility]) Alpha-2-Nadine 12.8 % Normal (applies to MEDGEN (S t bulin, U non-numeric Juan C's results) [facility]) Gamma 15.6 % Normal (applies to MEDGEN (St Globulin, U non-numeric Juan C's results) [facility]) Beta 29.7 % Normal (applies to MEDGEN (St Globulin, U non-numeric Juan C's results) [facility]) M-Kevyn, % Comment: Normal (applies to MEDGEN (St non-numeric Juan C's results) [facility], [facility]) Please Normal (applies to MEDGEN (St note: non-numeric Juan C's results) [facility], PC) PDF . Normal (applies to MEDGEN (St non-numeric Juan C's results) [facility], PC) ID Date Data Source [id number] 03/22/2020 12:00:00 AM EDT [facility] ([facility], ) Name Value Range Interpretation Description Data Sup porting Code Source(s) Document(s ) Microalbumin 4.0 g/dL Normal (applies MEDGEN (St [Mass/time] in to non-numeric Juan C's Urine collected results) Medical, for unspecified PC) duration Zkeij-2-Qqkqacbq 0.2 g/dL Normal (applies MEDGEN (St to non-numeric Juan C's results) Medical, PC) Lualp-1-Vkyzhqmu 0.8 g/dL Normal (applies MEDGEN (St to [...] results) [facility], PC) ID Date Data Source [id number] 03/22/2020 12:00:00 AM EDT MEDGEN ([facility] [...] results) Medical, ) ID Date Data Source [id number] 03/22/2020 12:00:00 AM EDT MEDGEN ([facility] [...] by Light microscopy ID Date Data Source [id number] 03/22/2020 12:00:00 AM EDT MEDGEN ([facility] [...] low normal MEDGE N (St Am mL/min/1 [facility] [address], ) eGFR If Africn Am 10 Below low normal MEDGE N (St mL/min/1 [facility]'s .[address] [facility], ) BUN/Creatinine 10 Normal (applies MEDGEN [...] 5.2 g/dL Above high MEDGEN (St normal [facility], ) A/G Ratio 0.8 Below low normal MEDGEN ([facility], ) Bilirubin.total 0.4 Normal (applies MEDGEN ( St [Mass/volume] in mg/dL to non-numeric Juan C's Serum or Plasma results) [facility], ) Alkaline 63 IU/L Normal (applies MEDGEN (St phosphatase to non-numeric Juan C's [Enzymatic results) Medical, activity/volume] in ) Serum, Plasma or Blood Aspartate 43 IU/L Above high MEDGEN (St aminotransferase normal Juan C's [Enzymatic Medical, activity/volume] in ) Serum or Plasma Alanine 43 IU/L Normal (applies MEDGEN (St aminotransferase to non-numeric Juan C's [Enzymatic results) [facility], activity/volume] in ) Serum or Plasma ID Date Data Source [id number] 03/22/2020 12:00:00 AM EDT [facility] ([facility], ) Name Value Range Interpretation Description Data Sup porting Code Source(s) Document(s ) Leukocytes 11.7 Above high normal MEDGEN (St [#/volume] in x10E3/uL Juan C's Blood by [facility], ) Automated count Erythrocytes 2.47 Below lower panic MEDGEN (S t [#/volume] in x10E6/uL limits Juan C's Blood by [facility], ) Automated count Hematocrit 23.3 % Below low normal MEDGEN (St [Volume Juan C's Fraction] of [facility], ) Blood by Automated count Hemoglobin 8.2 g/dL Below low normal MEDGEN (St [Mass/volume] in Juan C's Blood [facility], ) MCV 94 fL Normal (applies MEDGEN (St to non-numeric Juan C's results) [facility]) MCH 33.2 pg Above high normal MEDGEN ([facility], ) MCHC 35.2 Normal (applies MEDGEN (St g/dL to non-numeric Juan C's results) [facility]) RDW 19.0 % Above high normal [facility] ([facility], ) Platelets 198 Normal (applies MEDGEN (St [#/area] in x10E3/uL to non-numeric Juan C's Blood by results) [facility], ) Microscopy high power field Neutrophils [#] 54 % Normal (applies MEDGEN ( St in Body fluid by to non-numeric Juan C's Manual count results) [facility], ) Lymphs 13 % Normal (applies MEDGEN (St to non-numeric Juan C's results) [facility], ) Monocytes 16 % Normal (applies MEDGEN (St [#/volume] in to non-numeric Juan C's Cord blood results) [facility], ) Eos 11 % Normal (applies MEDGEN (St to non-numeric Juan C's results) [facility], ) Basos 1 % Normal (applies MEDGEN (St to non-numeric Juan C's results) [facility], ) Neutrophils 6.4 Normal (applies MEDGEN (St (Absolute) x10E3/uL to non-numeric Juan C's results) [facility], ) Lymphs 1.5 Normal (applies MEDGEN (St (Absolute) x10E3/uL to non-numeric Juan C's results) [facility], ) Monocytes(Absolu 1.9 Above high normal MEDGE N (St te) x10E3/uL Juan C's [facility], ) Baso (Absolute) 0.1 Normal (applies MEDGEN ( St x10E3/uL to non-numeric Juan C's results) [facility], ) Eos (Absolute) 1.3 Above high normal MEDGEN (St x10E3/uL Juan C's [facility], ) Immature 5 % Normal (applies MEDGEN (St Granulocytes to non-numeric Juan C's results) [facility], ) Immature Grans 0.6 Above high normal MEDGEN (St (Abs) x10E3/uL Juan C's [facility], ) NRBC 4 % Above high normal [facility] ([facility], ) ID Date Data Source [id number] 03/22/2020 12:00:00 AM EDT [facility] ([facility], ) Name Value Range Interpretation Code Description Data Lisa rce(s) Supporting Document(s ) ID Date Data Source [id number] 03/22/2020 12:00:00 AM EDT [facility] ([facility], ) Name Value Range Interpretation Code Description Data Supporting Source(s) Document(s ) PTH, Intact 10 pg/mL Below low normal MED[facility] ([facility], ) ID Date Data Source [id number] 03/22/2020 12:00:00 AM EDT [facility] ([facility], ) Name Value Range Interpretation Code Description Data Supporting Source(s) Document(s ) Ferritin, 349 ng/mL Normal (applies to MEDGEN (St Serum non-numeric Juan C's results) [facility], ) ID Date Data Source [id number] 03/22/2020 12:00:00 AM EDT MED[facility] ([facility], ) Name Value Range Interpretation Description Data Sup porting Code Source(s) Document(s ) Deprecated 5.4 mg/dL Above high normal MEDGEN (St Phosphorus Juan C's [Mass/time] in [facility], ) 24 hour Urine ID Date Data Source [id number] 03/22/2020 12:00:00 AM EDT [facility] ([facility], ) Name Value Range Interpretation Code Description Data Lisa rce(s) Supporting Document(s ) RAGINI Normal (applies to MEDGEN (St Interpreta non-numeric results) Juan C's M edical, tion:U ) ID Date Data Source [id number] 03/22/2020 12:00:00 AM EDT [facility] ([facility], ) Name Value Range Interpretation Description Data Sup porting Code Source(s) Document(s ) Vitamin D, 30.6 Normal (applies to MEDGEN (St 25-Hydroxy ng/mL non-numeric Juan C's results) [facility], ) ID Date Data Source [id number] 03/22/2020 12:00:00 AM EDT MED[facility] ([facility], ) Name Value Range Interpretation Description Data Sup porting Code Source(s) Document(s ) Free [place] 141.85 Above high normal MEDGEN (St Lt mg/L Juan C's Chains,Ur [facility], ) Free Lambda 110.44 Above high normal MEDGEN (St Lt mg/L Juan C's Chains,Ur [facility], ) [place] 1.28 Normal (applies to MEDGEN (S t a Ratio,U non-numeric Juan C's results) [facility], ) ID Date Data Source [id number] 03/22/2020 12:00:00 AM EDT MED[facility] ([facility], ) Name Value Range Interpretation Description Data Sup porting Code Source(s) Document(s ) Free [place] 41.1 mg/L Above high normal MEDGEN (St Lt Chains,S [facility], ) Free Lambda 176.0 mg/L Above high normal MEDGEN (S t Lt Chains,S [facility]) [place] 0.23 Below low normal MEDGEN (St a Ratio,S [facility]) ID Date Data Source [id number] 03/22/2020 12:00:00 AM EDT [facility] ([facility], ) Name Value Range Interpretation Code Description Data Supporting Source(s) Document(s ) Creatinine 94.7 mg/dL Normal (applies to MEDGEN (S t , Urine non-numeric Juan C's results) [facility]) Protein/Cr 1072 mg/g Above high normal MEDGEN (St eat Ratio creat [facility]) ID Date Data Source [id number] 03/22/2020 12:00:00 AM EDT [facility] ([facility]) Name Value Range Interpretation Description Data Sup porting Code Source(s) Document(s ) Immunofixation Normal (applies MEDGEN (S t Result, Serum to non-numeric Juan C's results) [facility]) Immunoglobulin G, 3867 Above high normal MEDG EN (St Qn, Serum mg/dL [facility]) Immunoglobulin A, 17 mg/dL Below low normal MEDGE N (St Qn, Serum [facility]) Immunoglobulin M, 8 mg/dL Below low normal MEDGE N (St Qn, Serum [facility]) ID Date Data Source [id number] 03/22/2020 12:00:00 AM EDT [facility] ([facility], ) Name Value Range Interpretation Description Data Sup porting Code Source(s) Document(s ) Iron 248 ug/dL Below low normal MEDGEN (St Bind.Cap.(TIBC Juan C's ) [facility]) UIBC 172 ug/dL Normal (applies to MEDGEN (St non-numeric Juan C's results) [facility]) Iron 31 % Normal (applies to MEDGEN (St saturation non-numeric Juan C's [Mass results) [facility]) Fraction] in Serum or Plasma Iron 76 ug/dL Normal (applies to MEDGEN (St [Mass/volume] non-numeric Juan C's in Serum or results) [facility], ) Plasma ID Date Data Source [id number] 03/22/2020 12:00:00 AM EDT [facility] ([facility] [...] results) Medical, PC) ID Date Data Source [id number] 03/22/2020 12:00:00 AM EDT [facility] ([facility]) Name Value Range Interpretation Description Data Sup porting Code Source(s) Document(s ) Microalbumin 4.0 g/dL Normal (applies MEDGEN (St [Mass/time] in to non-numeric Juan C's Urine collected results) Medical, for unspecified PC) duration Mchpd-2-Mvkmismv 0.2 g/dL Normal (applies [facility]GEN (St to non-numeric Juan C's results) Medical, PC) Beta globulin 0.7 g/dL Normal (applies MEDGEN (St [Mass/volume] in to non-numeric Juan C's Urine by results) Medical, Electrophoresis PC) Rwyjn-7-Fkjymoml 0.8 g/dL Normal (applies MEDGEN (St to non-numeric Juan C's results) Medical, PC) Gamma globulin 3.5 g/dL Above high normal MEDGEN (St [Mass/volume] by Juan C's Electrophoresis in Medical, Urine collected PC) for unspecified duration M-Kevyn 3.2 g/dL Above high normal [facility] ([facility], [facility]) Globulin, Total 5.1 g/dL Above high normal [facility] ([facility]) A/G Ratio 0.8 Normal (applies MEDGEN (St to non-numeric Juan C's results) Medical, PC) Please note: Normal (applies MEDGEN (St to non-numeric Juan C's results) Medical, ) PDF . Normal (applies MEDGEN (St to non-numeric Juan C's results) Medical, ) ID Date Data Source [id number] 03/22/2020 12:00:00 AM EDT [facility] ([facility], ) Name Value Range Interpretation Description [...] to non-numeric Juan C's Urine collected results) [facility], for unspecified PC) duration Ketones Negative [...] results) Medical, PC) ID Date Data Source [id number] 03/22/2020 12:00:00 AM EDT [facility]GEN ([facility] diana's [facility], ) Name Value Range Interpretation Description [...] by Light microscopy ID Date Data Source [id number] 03/22/2020 12:00:00 AM EDT [facility] ([facility], ) Name Value Range Interpretation Description [...] 5.2 g/dL Above high MEDGEN (St normal [facility], ) A/G Ratio 0.8 Below low normal [facility] ) Bilirubin.total 0.4 Normal (applies MEDGEN ( [...] Serum or Plasma ID Date Data Source [id number] 03/22/2020 12:00:00 AM EDT [facility] ([facility], ) Name Value Range Interpretation Description Data Sup porting Code Source(s) Document(s ) Leukocytes 11.7 Above high normal MEDGEN (St [#/volume] in x10E3/uL Juan C's Blood by [facility], ) Automated count Erythrocytes 2.47 Below lower panic MEDGEN (S t [#/volume] in x10E6/uL limits Juan C's Blood by [facility], ) Automated count Hemoglobin 8.2 g/dL Below low normal MEDGEN (St [Mass/volume] in Juan C's Blood [facility], ) MCV 94 fL Normal (applies MEDGEN (St to non-numeric Juan C's results) [facility]) Hematocrit 23.3 % Below low normal MEDGEN (St [Volume Juan C's Fraction] of [facility], ) Blood by Automated count MCH 33.2 pg Above high normal [facility] ([facility], ) MCHC 35.2 Normal (applies MEDGEN (St g/dL to non-numeric Juan C's results) [facility]) RDW 19.0 % Above high normal [facility] ([facility], ) Platelets 198 Normal (applies MEDGEN (St [#/area] in x10E3/uL to non-numeric Juan C's Blood by results) [facility], ) Microscopy high power field Neutrophils [#] 54 % Normal (applies MEDGEN ( St in Body fluid by to non-numeric Juan C's Manual count results) [facility]) Lymphs 13 % Normal (applies MEDGEN (St to non-numeric Juan C's results) [facility]) Monocytes 16 % Normal (applies MEDGEN (St [#/volume] in to non-numeric Juan C's Cord blood results) [facility]) Eos 11 % Normal (applies MEDGEN (St to non-numeric Juan C's results) [facility]) Basos 1 % Normal (applies MEDGEN (St to non-numeric Juan C's results) [facility]) Neutrophils 6.4 Normal (applies MEDGEN (St (Absolute) x10E3/uL to non-numeric Juan C's results) [facility], ) Lymphs 1.5 Normal (applies MEDGEN (St (Absolute) x10E3/uL to non-numeric Juan C's results) [facility]) Monocytes(Absolu 1.9 Above high normal MEDGE N (St te) x10E3/uL [facility]) Eos (Absolute) 1.3 Above high normal MEDGEN (St x10E3/uL [facility], ) Baso (Absolute) 0.1 Normal (applies MEDGEN ( St x10E3/uL to non-numeric Juan C's results) [facility], ) Immature 5 % Normal (applies MEDGEN (St Granulocytes to non-numeric Juan C's results) [facility]) Immature Grans 0.6 Above high normal MEDGEN (St (Abs) x10E3/uL [facility], ) NRBC 4 % Above high normal [facility] ([facility], ) ID Date Data Source [id number] 03/22/2020 12:00:00 AM EDT [facility] ([facility], ) Name Value Range Interpretation Code Description Data Lisa rce(s) Supporting Document(s ) ID Date Data Source [id number] 03/22/2020 12:00:00 AM EDT [facility] ([facility], ) Name Value Range Interpretation Code Description Data Supporting Source(s) Document(s ) PTH, Intact 10 pg/mL Below low normal [facility] ([facility], ) PTH, Intact 14 pg/mL Below low normal [facility] ([facility], ) ID Date Data Source [id number] 03/22/2020 12:00:00 AM EDT [facility] ([facility], ) Name Value Range Interpretation Code Description Data Supporting Source(s) Document(s ) Ferritin, 349 ng/mL Normal (applies to MEDGEN (St Serum non-numeric Juan C's results) [facility], ) Ferritin, 329 ng/mL Normal (applies to MEDGEN (St Serum non-numeric Juan C's results) [facility], ) ID Date Data Source [id number] 03/22/2020 12:00:00 AM EDT [facility] ([facility], ) Name Value Range Interpretation Description Data Sup porting Code Source(s) Document(s ) Deprecated 5.4 mg/dL Above high normal MEDGEN (St Phosphorus Juan C's [Mass/time] in [facility], ) 24 hour Urine Deprecated 4.8 mg/dL Above high normal MEDGEN (St Phosphorus Juan C's [Mass/time] in [facility], ) 24 hour Urine ID Date Data Source [id number] 03/22/2020 12:00:00 AM EDT [facility] ([facility], ) Name Value Range Interpretation Code Description Data Lisa rce(s) Supporting Document(s ) ID Date Data Source [id number] 03/22/2020 12:00:00 AM EDT [facility] ([facility] [...] results) Medical, PC) ID Date Data Source [id number] 03/22/2020 12:00:00 AM EDT [facility] ([facility]) Name Value Range Interpretation Description Data Sup porting Code Source(s) Document(s ) Free [place] 141.85 Above high normal MEDGEN (St Lt mg/L Juan C's Chains,Ur [facility], PC) Free Lambda 110.44 Above high normal MEDGEN (St Lt mg/L Juan C's Chains,Ur [facility], PC) [place] 1.28 Normal (applies to MEDGEN (S t a Ratio,U non-numeric Juan C's results) Medical, PC) Free [place] 476.00 Above high normal MEDGEN (St Lt mg/L Juan C's Chains,Ur [facility], PC) [place] 10.70 Above high normal MEDGEN (St a Ratio,U [facility], PC) Free Lambda 44.50 mg/L Above high normal MEDGEN (S t Lt Juan C's Chains,Ur [facility], PC) ID Date Data Source [id number] 03/22/2020 12:00:00 AM EDT [facility] ([facility]) Name Value Range Interpretation Description Data Sup porting Code Source(s) Document(s ) Free [place] 41.1 mg/L Above high normal MEDGEN (St Lt Chains,S [facility], [facility]) Free Lambda 176.0 mg/L Above high normal MEDGEN (S t Lt Chains,S [facility], [facility]) [place] 0.23 Below low normal MEDGEN (St a Ratio,S [facility], [facility]) Free [place] 38.9 mg/L Above high normal MEDGEN (St Lt Chains,S [facility], ) Free Lambda 133.0 mg/L Above high normal MEDGEN (S t Lt Chains,S [facility], ) [place] 0.29 Normal (applies to MEDGEN (S t a Ratio,S non-numeric Juan C's results) [facility], ) ID Date Data Source [id number] 03/22/2020 12:00:00 AM EDT [facility] ([facility], ) Name Value Range Interpretation Code Description Data Supporting Source(s) Document(s ) Creatinine 94.7 mg/dL Normal (applies to MEDGEN (S t , Urine non-numeric Juan C's results) [facility], ) Protein/Cr 1072 mg/g Above high normal MEDGEN (St eat Ratio creat [facility], ) Creatinine 175.9 Normal (applies to MEDGEN (St , Urine mg/dL non-numeric Juan C's results) [facility], ) Protein/Cr 833 mg/g Above high normal MEDGEN (St eat Ratio creat [facility], ) ID Date Data Source [id number] 03/22/2020 12:00:00 AM EDT MEDGEN (St [facility], ) Name Value Range Interpretation Description Data Sup porting Code Source(s) Document(s ) Immunoglobulin G, 3867 Above high normal MEDG EN (St Qn, Serum mg/dL [facility]) Immunoglobulin A, 17 mg/dL Below low normal MEDGE N (St Qn, Serum [facility], ) Immunoglobulin M, 8 mg/dL Below low normal MEDGE N (St Qn, Serum [facility], ) Immunoglobulin G, 3973 Above high normal MEDG EN (St Qn, Serum mg/dL [facility]) Immunoglobulin A, 25 mg/dL Below low normal MEDGE N (St Qn, Serum [facility], ) Immunoglobulin M, 13 mg/dL Below low normal MEDGE N (St Qn, Serum [facility], ) ID Date Data Source [id number] 03/22/2020 12:00:00 AM EDT MEDGEN (St [facility], ) Name Value Range Interpretation Description Data Sup porting Code Source(s) Document(s ) Iron 248 ug/dL Below low normal MEDGEN (St Bind.Cap.(TIBC Juan C's ) [facility], ) UIBC 172 ug/dL Normal (applies to MEDGEN (St non-numeric Juan C's results) [facility], ) Iron 76 ug/dL Normal (applies to MEDGEN (St [Mass/volume] non-numeric Juan C's in Serum or results) [facility], ) Plasma Iron 31 % Normal (applies to MEDGEN (St saturation non-numeric Juan C's [Mass results) [facility], ) Fraction] in Serum or Plasma Iron 297 ug/dL Normal (applies to MEDGEN (St Bind.Cap.(TIBC non-numeric Juan C's ) results) [facility], ) UIBC 222 ug/dL Normal (applies to MEDGEN (St non-numeric Juan C's results) [facility], ) Iron 75 ug/dL Normal (applies to MEDGEN (St [Mass/volume] non-numeric Juan C's in Serum or results) [facility], ) Plasma Iron 25 % Normal (applies to MEDGEN (St saturation non-numeric Juan C's [Mass results) [facility], ) Fraction] in Serum or Plasma ID Date Data Source [id number] 03/22/2020 12:00:00 AM EDT MEDGEN ([facility] hn's [facility], ) Name Value Range Interpretation Code Description Data Supporting Source(s) Document(s ) Protein,To 101.5 Normal (applies to MEDGEN (St ruth,Urine mg/dL non-numeric Juan C's results) [facility], ) Albumin, U 36.2 % Normal (applies to MEDGEN (St non-numeric Juan C's results) [facility], ) Alpha-1-Gl 5.7 % Normal (applies to MEDGEN (St obulin, U non-numeric Juan C's results) [facility], ) Alpha-2-Gl 12.8 % Normal (applies to MEDGEN (St obulin, U non-numeric Juan C's results) [facility], ) Beta 29.7 % Normal (applies to MEDGEN (St Globulin, non-numeric Juan C's U results) [facility], ) Gamma 15.6 % Normal (applies to MEDGEN (St Globulin, non-numeric Juan C's U results) [facility], ) M-Kevyn, % Comment: Normal (applies to MEDGEN (St non-numeric Juan C's results) [facility], ) PDF . Normal (applies to [...] to MEDGEN (St non-numeric Juan C's results) [facility], ) ID Date Data Source [id number] 03/22/2020 12:00:00 AM EDT MEDGEN ([facility], ) Name Value Range Interpretation Description Data Sup porting Code Source(s) Document(s ) Microalbumin 4.0 g/dL Normal (applies MEDGEN (St [Mass/time] in to non-numeric Juan C's Urine collected results) Medical, for unspecified PC) duration Cbcis-1-Cbfaegsg 0.2 g/dL Normal (applies MEDGEN (St to non-numeric Juan C's results) Medical, PC) Rgrav-2-Qxgtcyae 0.8 g/dL Normal (applies MEDGEN (St to [...] Total 5.1 g/dL Above high normal [facility] ([facility], ) A/G Ratio 0.8 Normal (applies MEDGEN (St to non-numeric Juan C's results) Medical, ) PDF . Normal (applies MEDGEN (St to non-numeric Juan C's results) Medical, ) Protein 9.0 g/dL Above high normal MEDGEN (St [Mass/volume] in [facility]'s Serum or Plasma Medical, ) Microalbumin 4.0 g/dL Normal (applies MEDGEN (St [Mass/time] in to non-numeric [facility]'s Urine collected results) [facility], for unspecified PC) duration Lhywv-1-Dmfgkjfl 0.2 g/dL Normal (applies MEDGEN (St to non-numeric [facility]'s results) Medical, ) Nlezy-9-Mrczzzzl 0.8 g/dL Normal (applies MEDGEN (St to non-numeric [facility]'s results) Medical, ) Beta globulin 0.8 g/dL Normal (applies MEDGEN (St [Mass/volume] in to non-numeric [facility] Urine by results) Medical, Electrophoresis ) Gamma globulin 3.2 g/dL Above high normal MEDGEN (St [Mass/volume] by [facility]'s Electrophoresis in Medical, Urine collected ) for unspecified duration M-Kevyn 2.9 g/dL Above high normal [facility] ([facility], ) Globulin, Total 5.0 g/dL Above high normal [facility] ([facility], ) A/G Ratio 0.8 Normal (applies [facility]GEN (St to non-numeric [facility]'s results) Medical, ) PDF . Normal (applies MEDGEN (St to non-numeric [facility]'s results) Medical, ) ID Date Data Source [id number] 03/22/2020 12:00:00 AM EDT [facility] ([facility], ) Name Value Range Interpretation Description [...] results) Medical, ) ID Date Data Source [id number] 03/22/2020 12:00:00 AM EDT MEDGEN ([facility] [...] by Light microscopy ID Date Data Source [id number] 03/22/2020 12:00:00 AM EDT [facility] ([facility] [...] in normal [facility]'s Serum or Plasma [facility], ) Globulin, Total 5.2 g/dL Above high MEDGEN (St normal Juan C's [facility], ) Microalbumin 3.9 g/dL Normal (applies [facility]GEN (St [Mass/time] in to non-numeric [facility] Urine collected for results) Medical, unspecified ) duration A/G Ratio 0.8 Below low normal [facility] ([facility], ) Bilirubin.total 0.4 Normal (applies MEDGEN ( St [Mass/volume] in mg/dL to non-numeric [facility] Serum or Plasma results) [facility], ) Aspartate 43 IU/L Above high [...] non-numeric [facility] Urine collected for results) [facility], unspecified ) duration Urea nitrogen 36 mg/dL Above high MEDGEN (St [Mass/volume] in normal [facility]'s Serum or Plasma [facility], ) Creatinine 2.81 Above high MEDGEN (St [Interpretation] in mg/dL normal Juan [facility]'s Urine [facility], ) eGFR If NonAfricn 21 Below low normal MEDGE N (St Am mL/min/[address] Juan C's [address] [place] [address], ) eGFR If Africn Am 24 Below low normal MEDGE N (St mL/min/1 [facility] .73 [facility], ) BUN/Creatinine 13 Normal (applies MEDGEN (S t Ratio to non-numeric [facility]'s results) [facility], ) Sodium 135 Normal (applies [facility]GEN (St [Moles/volume] in mmol/L to non-numeric [facility] Serum or Plasma results) [facility], ) Potassium 4.1 Normal (applies MEDGEN [...] non-numeric [facility] Urine collected for results) [facility], unspecified ) duration Microalbumin 4.2 g/dL Normal (applies [facility]GEN (St [Mass/time] in to non-numeric [facility] Urine collected for results) [facility], unspecified ) duration Protein 9.0 g/dL Above high MEDGEN (St [Mass/volume] in normal [facility]'s Serum or Plasma [facility], ) Globulin, Total 4.8 g/dL Above high MED[facility] (St normal [facility], ) A/G Ratio 0.9 Below low normal [facility] ([facility], ) Bilirubin.total 0.3 Normal (applies MEDGEN ( St [Mass/volume] in mg/dL to non-numeric [facility] Serum or Plasma results) [facility], ) Alkaline 53 IU/L Normal (applies [...] Serum or Plasma ID Date Data Source [id number] 03/22/2020 12:00:00 AM EDT [facility] ([facility], ) Name Value Range Interpretation Description Data Sup porting Code Source(s) Document(s ) Leukocytes 11.7 Above high normal MEDGEN (St [#/volume] in x10E3/uL [facility] Blood by [facility], ) Automated count Erythrocytes 2.47 Below lower panic MEDGEN (S t [#/volume] in x10E6/uL limits [facility] Blood by [facility], ) Automated count Hematocrit 23.3 % Below low normal MEDGEN (St [Volume Juan C's Fraction] of [facility], ) Blood by Automated count Hemoglobin 8.2 g/dL Below low normal [facility]GEN (St [Mass/volume] in [facility]'s Blood [facility], ) MCV 94 fL Normal (applies [facility]GEN (St to non-numeric [facility]'s results) [facility]) MCH 33.2 pg Above high normal [facility] ([facility], ) MCHC 35.2 Normal (applies [facility]GEN (St g/dL to non-numeric [facility]'s results) [facility]) RDW 19.0 % Above high normal [facility] ([place], ) Platelets 198 Normal (applies MEDGEN (St [#/area] in x10E3/uL to non-numeric [facility] Blood by results) [facility]) Microscopy high power field Neutrophils [#] 54 % Normal (applies MEDGEN ( St in Body fluid by to non-numeric [facility]'s Manual count results) [facility]) Lymphs 13 % Normal (applies [facility] (St to non-numeric [facility]'s results) [facility]) Monocytes 16 % Normal (applies [facility]GEN (St [#/volume] in to non-numeric [facility]'s Cord blood results) [facility]) Basos 1 % Normal (applies [facility] (St to non-numeric [facility]'s results) [facility]) Eos 11 % Normal (applies [facility]GEN (St to non-numeric [facility]'s results) [facility]) Neutrophils 6.4 Normal (applies [facility]GEN (St (Absolute) x10E3/uL to non-numeric [facility] results) [facility]) Monocytes(Absolu 1.9 Above high normal MEDGE N (St te) x10E3/uL [facility]) Lymphs 1.5 Normal (applies [facility]GEN (St (Absolute) x10E3/uL to non-numeric [facility] results) [facility]) Eos (Absolute) 1.3 Above high normal [facility] (St x10E3/uL [facility]) Baso (Absolute) 0.1 Normal (applies MEDGEN ( St x10E3/uL to non-numeric [facility]'s results) [facility]) Immature 5 % Normal (applies [facility]GEN (St Granulocytes to non-numeric [facility]'s results) [facility], ) Immature Grans 0.6 Above high normal [facility] (St (Abs) x10E3/uL [facility], ) NRBC 4 % Above high normal [facility] ([facility], ) Leukocytes 11.8 Above high normal [facility]GEN (St [#/volume] in x10E3/uL [facility] Blood by [facility], ) Automated count Erythrocytes 3.28 Below low normal [facility]GEN (St [#/volume] in x10E6/uL [facility] Blood by [facility], ) Automated count Hemoglobin 10.8 Below low normal [facility] (St [Mass/volume] in g/dL [facility] Blood [facility], ) Hematocrit 31.7 % Below low normal [facility]GEN (St [Volume Juan C's Fraction] of [facility], ) Blood by Automated count MCH 32.9 pg Normal (applies [facility]GEN (St to non-numeric [facility]'s results) [facility], ) MCV 97 fL Normal (applies [facility]GEN (St to non-numeric [facility]'s results) [facility], ) MCHC 34.1 Normal (applies [facility]GEN (St g/dL to non-numeric [facility]'s results) [facility], ) RDW 17.5 % Above high normal [facility] ([facility], ) Platelets 237 Normal (applies MEDGEN (St [#/area] in x10E3/uL to non-numeric [facility] Blood by results) [facility], ) Microscopy high power field Neutrophils [#] 53 % Normal (applies MEDGEN ( St in Body fluid by to non-numeric [facility]'s Manual count results) [facility], ) Lymphs 20 % Normal (applies [facility]GEN (St to non-numeric [facility]'s results) [facility]) Eos 12 % Normal (applies MEDGEN (St to non-numeric [facility] C's results) [facility], ) Monocytes 13 % Normal (applies MEDGEN (St [#/volume] in to non-numeric [facility]'s Cord blood results) [facility], ) Basos 1 % Normal (applies [facility]GEN (St to non-numeric [facility]'s results) [facility], ) Neutrophils 6.2 Normal (applies MEDGEN (St (Absolute) x10E3/uL to non-numeric [facility]'s results) [facility], ) Lymphs 2.4 Normal (applies MEDGEN (St (Absolute) x10E3/uL to non-numeric [facility]'s results) [facility], ) Monocytes(Absolu 1.5 Above high normal MEDGE N (St te) x10E3/uL [facility], ) Eos (Absolute) 1.5 Above high normal [facility]GEN (St x10E3/uL [facility], ) Immature 1 % Normal (applies [facility]GEN (St Granulocytes to non-numeric [facility]'s results) [facility], ) Baso (Absolute) 0.1 Normal (applies MEDGEN ( St x10E3/uL to non-numeric [facility]'s results) [facility], ) Immature Grans 0.2 Above high normal [facility]GEN (St (Abs) x10E3/uL [facility], ) Hematology Note: Normal (applies MEDGEN (St Comments: to non-numeric [facility]'s results) [facility], ) Leukocytes 9.5 Normal (applies MEDGEN (St [#/volume] in x10E3/uL to non-numeric [facility] Blood by results) [facility], ) Automated count Erythrocytes 3.28 Below low normal MEDGEN (St [#/volume] in x10E6/uL [facility] Blood by [facility], ) Automated count Hemoglobin 10.9 Below low normal [facility]GEN (St [Mass/volume] in g/dL [facility] Blood [facility], ) Hematocrit 32.1 % Below low normal MEDGEN (St [Volume Juan C's Fraction] of [facility], ) Blood by Automated count MCV 98 fL Above high normal [facility] ([facility], ) MCH 33.2 pg Above high normal [facility] ([facility], ) RDW 17.3 % Above high normal [facility]GEN ([facility], ) MCHC 34.0 Normal (applies MEDGEN (St g/dL to non-numeric [facility]'s results) [facility], ) Platelets 240 Normal (applies MEDGEN (St [#/area] in x10E3/uL to non-numeric [facility]'s Blood by results) [facility], ) Microscopy high power field Lymphs 19 % Normal (applies [facility]GEN (St to non-numeric [facility]'s results) [facility], ) Neutrophils [#] 53 % Normal (applies MEDGEN ( St in Body fluid by to non-numeric [facility]'s Manual count results) [facility], ) Monocytes 15 % Normal (applies MEDGEN (St [#/volume] in to non-numeric [facility]'s Cord blood results) [facility], ) Eos 11 % Normal (applies [facility]GEN (St to non-numeric [facility] C's results) [facility], ) Basos 0 % Normal (applies [facility]GEN (St to non-numeric Juan C's results) [facility], ) Neutrophils 5.1 Normal (applies MEDGEN (St (Absolute) x10E3/uL to non-numeric [facility] C's results) [facility], ) Lymphs 1.8 Normal (applies MEDGEN (St (Absolute) x10E3/uL to non-numeric [facility]'s results) [facility], ) Eos (Absolute) 1.0 Above high normal MEDGEN (St x10E3/uL [facility], ) Monocytes(Absolu 1.5 Above high normal MEDGE N (St te) x10E3/uL [facility], ) Baso (Absolute) 0.0 Normal (applies MEDGEN ( St x10E3/uL to non-numeric Juan C's results) [facility], ) Immature 2 % Normal (applies MEDGEN (St Granulocytes to non-numeric Juan C's results) [facility], ) Hematology Note: Normal (applies MEDGEN (St Comments: to non-numeric Juan C's results) [facility], ) Immature Grans 0.2 Above high normal [facility]GEN (St (Abs) x10E3/uL [facility]) ID Date Data Source [id number] 03/22/2020 12:00:00 AM EDT [facility] ([facility], ) Name Value Range Interpretation Code Description Data Lisa rce(s) Supporting Document(s ) ID Date Data Source [id number] 03/22/2020 12:00:00 AM EDT [facility] ([facility], ) Name Value Range Interpretation Code Description Data Supporting Source(s) Document(s ) PTH, Intact 10 pg/mL Below low normal [facility] ([place], ) ID Date Data Source [id number] 03/22/2020 12:00:00 AM EDT [facility] ([facility], ) Name Value Range Interpretation Code Description Data Supporting Source(s) Document(s ) Ferritin, 349 ng/mL Normal (applies to MEDGEN (St Serum non-numeric Juan C's results) [facility], ) ID Date Data Source [id number] 03/22/2020 12:00:00 AM EDT [facility] ([facility], ) Name Value Range Interpretation Description Data Sup porting Code Source(s) Document(s ) Deprecated 5.4 mg/dL Above high normal [facility]GEN (St Phosphorus Juan [facility]'s [Mass/time] in [facility], ) 24 hour Urine ID Date Data Source [id number] 03/22/2020 12:00:00 AM EDT [facility] ([facility], ) Name Value Range Interpretation Code Description Data Lisa rce(s) Supporting Document(s ) RAGINI Normal (applies to MEDGEN (St Interpreta non-numeric results) [facility] M edical, tion:U ) ID Date Data Source [id number] 03/22/2020 12:00:00 AM EDT [facility] ([facility], ) Name Value Range Interpretation Description Data Sup porting Code Source(s) Document(s ) Vitamin D, 30.6 Normal (applies to MEDGEN (St 25-Hydroxy ng/mL non-numeric Juan C's results) [facility], ) ID Date Data Source [id number] 03/22/2020 12:00:00 AM EDT [facility] ([facility], ) Name Value Range Interpretation Description Data Sup porting Code Source(s) Document(s ) Free [place] 141.85 Above high normal MEDGEN (St Lt mg/L Juan C's Chains,Ur [facility], ) Free Lambda 110.44 Above high normal MEDGEN (St Lt mg/L Juan C's Chains,Ur [facility], ) [place] 1.28 Normal (applies to MEDGEN (S t a Ratio,U non-numeric Juan C's results) [facility], ) ID Date Data Source [id number] 03/22/2020 12:00:00 AM EDT [facility] ([facility], ) Name Value Range Interpretation Description Data Sup porting Code Source(s) Document(s ) Free [place] 41.1 mg/L Above high normal MEDGEN (St Lt Chains,S Juan C's [facility], ) Free Lambda 176.0 mg/L Above high normal MEDGEN (S t Lt Chains,S [facility], ) [place]d 0.23 Below low normal [facility]GEN (St a Ratio,S [facility] ) ID Date Data Source [id number] 03/22/2020 12:00:00 AM EDT [facility] ([facility], ) Name Value Range Interpretation Code Description Data Supporting Source(s) Document(s ) Creatinine 94.7 mg/dL Normal (applies to MEDGEN (S t , Urine non-numeric Juan C's results) [facility], ) Protein/Cr 1072 mg/g Above high normal MEDGEN (St eat Ratio creat [facility], ) ID Date Data Source [id number] 03/22/2020 12:00:00 AM EDT [facility] ([facility], ) Name Value Range Interpretation Description Data Sup porting Code Source(s) Document(s ) Immunofixation Normal (applies MEDGEN (S t Result, Serum to non-numeric Juan C's results) [facility], ) Immunoglobulin G, 3867 Above high normal MEDG EN (St Qn, Serum mg/dL [facility]) Immunoglobulin A, 17 mg/dL Below low normal MEDGE N (St Qn, Serum [facility]) Immunoglobulin M, 8 mg/dL Below low normal MEDGE N (St Qn, Serum [facility], ) ID Date Data Source [id number] 03/22/2020 12:00:00 AM EDT [facility] ([facility], ) Name Value Range Interpretation Description Data Sup porting Code Source(s) Document(s ) Iron 248 ug/dL Below low normal MEDGEN (St Bind.Cap.(TIBC Juan C's ) [facility], ) UIBC 172 ug/dL Normal (applies to MEDGEN (St non-numeric Juan C's results) [facility]) Iron 76 ug/dL Normal (applies to MEDGEN (St [Mass/volume] non-numeric Juan C's in Serum or results) [facility], ) Plasma Iron 31 % Normal (applies to MEDGEN (St saturation non-numeric Juan C's [Mass results) [facility]) Fraction] in Serum or Plasma ID Date Data Source [id number] 03/22/2020 12:00:00 AM EDT [facility] ([facility], ) Name Value Range Interpretation Description [...] results) Medical, PC) ID Date Data Source [id number] 03/22/2020 12:00:00 AM EDT [facility] ([facility], ) Name Value Range Interpretation Description Data Sup porting Code Source(s) Document(s ) Microalbumin 4.0 g/dL Normal (applies MEDGEN (St [Mass/time] in to non-numeric [facility]'s Urine collected results) Medical, for unspecified PC) duration Oolvy-1-Cyrvamwc 0.2 g/dL Normal (applies MEDGEN (St to non-numeric [facility]'s results) Medical, PC) Mogcb-3-Hldmilja 0.8 g/dL Normal (applies [facility]GEN (St to non-numeric [facility]'s results) Medical, PC) Beta globulin 0.7 g/dL Normal (applies MEDGEN (St [Mass/volume] in to non-numeric [facility]'s Urine by results) Medical, Electrophoresis PC) Gamma globulin 3.5 g/dL Above high normal MEDGEN (St [Mass/volume] by Juan C's Electrophoresis in Medical, Urine collected PC) for unspecified duration M-Kevyn 3.2 g/dL Above high normal [facility] ([place], PC) Globulin, Total 5.1 g/dL Above high normal [facility] ([facility], PC) A/G Ratio 0.8 Normal (applies MEDGEN (St to non-numeric [facility] C's results) Medical, PC) Please note: Normal (applies MEDGEN (St to non-numeric [facility]'s results) Medical, PC) PDF . Normal (applies MEDGEN (St to non-numeric Juan C's results) Medical, ) ID Date Data Source [id number] 03/22/2020 12:00:00 AM EDT [facility] ([facility], ) Name Value Range Interpretation [...] results) Medical, ) ID Date Data Source [id number] 03/22/2020 12:00:00 AM EDT [facility] ([facility], ) Name Value Range Interpretation Description [...] by Light microscopy ID Date Data Source [id number] 03/22/2020 12:00:00 AM EDT MEDGEN ([facility], ) Name Value Range Interpretation Description [...] 5.2 g/dL Above high MEDGEN (St normal [facility], ) A/G Ratio 0.8 Below low normal [facility] ([facility], ) Bilirubin.total 0.4 Normal (applies MEDGEN [...] Serum or Plasma ID Date Data Source [id number] 03/22/2020 12:00:00 AM EDT [facility] ([facility], ) Name Value Range Interpretation Description Data Sup porting Code Source(s) Document(s ) Leukocytes 11.7 Above high normal MEDGEN (St [#/volume] in x10E3/uL Juan C's Blood by [facility], ) Automated count Erythrocytes 2.47 Below lower panic MEDGEN (S t [#/volume] in x10E6/uL limits Juan C's Blood by [facility], ) Automated count Hemoglobin 8.2 g/dL Below low normal MEDGEN (St [Mass/volume] in Juan C's Blood [facility], ) Hematocrit 23.3 % Below low normal MEDGEN (St [Volume Juan C's Fraction] of [facility], ) Blood by Automated count MCV 94 fL Normal (applies MEDGEN (St to non-numeric Juan C's results) [facility]) MCH 33.2 pg Above high normal [facility] ([facility], ) MCHC 35.2 Normal (applies MEDGEN (St g/dL to non-numeric Juan C's results) [facility]) RDW 19.0 % Above high normal [facility] ([facility], ) Platelets 198 Normal (applies MEDGEN (St [#/area] in x10E3/uL to non-numeric Juan [facility]'s Blood by results) [facility]) Microscopy high power field Neutrophils [#] 54 % Normal (applies MEDGEN ( St in Body fluid by to non-numeric Juan C's Manual count results) [facility], ) Lymphs 13 % Normal (applies MEDGEN (St to non-numeric Juan C's results) [facility]) Monocytes 16 % Normal (applies MEDGEN (St [#/volume] in to non-numeric Juan C's Cord blood results) [facility]) Eos 11 % Normal (applies MEDGEN (St to non-numeric Juan C's results) [facility]) Basos 1 % Normal (applies MEDGEN (St to non-numeric Juan C's results) [facility]) Neutrophils 6.4 Normal (applies MEDGEN (St (Absolute) x10E3/uL to non-numeric Juan C's results) [facility]) Monocytes(Absolu 1.9 Above high normal MEDGE N (St te) x10E3/uL Juan [facility]'s [facility]) Lymphs 1.5 Normal (applies MEDGEN (St (Absolute) x10E3/uL to non-numeric Juan C's results) [facility]) Eos (Absolute) 1.3 Above high normal MEDGEN (St x10E3/uL Juan [facility]'s [facility], ) Baso (Absolute) 0.1 Normal (applies MEDGEN ( St x10E3/uL to non-numeric Juan [facility]'s results) [facility], ) Immature 5 % Normal (applies MEDGEN (St Granulocytes to non-numeric Juan C's results) [facility]) Immature Grans 0.6 Above high normal MEDGEN (St (Abs) x10E3/uL [facility], ) NRBC 4 % Above high normal [facility] ([facility], ) ID Date Data Source [id number] 03/22/2020 12:00:00 AM EDT [facility] ([facility], ) Name Value Range Interpretation Code Description Data Lisa rce(s) Supporting Document(s ) ID Date Data Source [id number] 03/22/2020 12:00:00 AM EDT MEDGEN ([facility], ) Name Value Range Interpretation Code Description Data Supporting Source(s) Document(s ) PTH, Intact 10 pg/mL Below low normal [facility] ([facility], ) ID Date Data Source [id number] 03/22/2020 12:00:00 AM EDT MEDGEN ([facility], ) Name Value Range Interpretation Code Description Data Supporting Source(s) Document(s ) Ferritin, 349 ng/mL Normal (applies to MEDGEN (St Serum non-numeric Juan C's results) Medical, ) ID Date Data Source [id number] 03/22/2020 12:00:00 AM EDT MED[facility] ([facility], ) Name Value Range Interpretation Description Data Sup porting Code Source(s) Document(s ) Deprecated 5.4 mg/dL Above high normal MEDGEN (St Phosphorus Juan C's [Mass/time] in Medical, ) 24 hour Urine ID Date Data Source [id number] 03/22/2020 12:00:00 AM EDT MED[facility] ([facility], ) Name Value Range Interpretation Code Description Data Lisa rce(s) Supporting Document(s ) ID Date Data Source [id number] 03/22/2020 12:00:00 AM EDT MED[facility] ([facility], ) Name Value Range Interpretation Description Data Sup porting Code Source(s) Document(s ) Vitamin D, 30.6 Normal (applies to MEDGEN (St 25-Hydroxy ng/mL non-numeric Juan C's results) Medical, ) ID Date Data Source [id number] 03/22/2020 12:00:00 AM EDT MEDGEN ([facility], ) Name Value Range Interpretation Description Data Sup porting Code Source(s) Document(s ) Free [place] 141.85 Above high normal MEDGEN (St Lt mg/L [facility]) Free [place] 110.44 Above high normal MEDGEN (St Lt mg/L [facility]) [place] 1.28 Normal (applies to MEDGEN (S t a Ratio,U non-numeric [facility] results) [facility], ) ID Date Data Source [id number] 03/22/2020 12:00:00 AM EDT [facility] ([facility]) Name Value Range Interpretation Description Data Sup porting Code Source(s) Document(s ) Free [place] 176.0 mg/L Above high normal MED[facility] (S t Lt Chains,S [facility]) Free [place] 41.1 mg/L Above high normal MEDGEN (St Lt Chains,S [facility]) [place] 0.23 Below low normal MEDGEN (St a Ratio,S [facility], ) ID Date Data Source [id number] 03/22/2020 12:00:00 AM EDT [facility] ([facility], ) Name Value Range Interpretation Code Description Data Supporting Source(s) Document(s ) Creatinine 94.7 mg/dL Normal (applies to MEDGEN (S t , Urine non-numeric [facility] results) [facility], ) Protein/Cr 1072 mg/g Above high normal MEDGEN (St eat Ratio creat [facility], ) ID Date Data Source [id number] 03/22/2020 12:00:00 AM EDT [facility] ([facility], ) Name Value Range Interpretation Code Description Data Lisa rce(s) Supporting Document(s ) ID Date Data Source [id number] 03/22/2020 12:00:00 AM EDT [facility] ([facility], ) Name Value Range Interpretation Code Description Data Supporting Source(s) Document(s ) PTH, Intact 10 pg/mL Below low normal [facility] ([facility], ) ID Date Data Source [id number] 03/22/2020 12:00:00 AM EDT [facility] ([facility], ) Name Value Range Interpretation Code Description Data Supporting Source(s) Document(s ) Ferritin, 349 ng/mL Normal (applies to MEDGEN (St Serum non-numeric [facility] results) [facility], ) ID Date Data Source [id number] 03/22/2020 12:00:00 AM EDT [facility] ([facility], ) Name Value Range Interpretation Description Data Sup porting Code Source(s) Document(s ) Deprecated 5.4 mg/dL Above high normal MEDGEN (St Phosphorus [facility] [Mass/time] in Medical, ) 24 hour Urine ID Date Data Source [id number] 03/22/2020 12:00:00 AM EDT [facility] ([facility], ) Name Value Range Interpretation Code Description Data Lisa rce(s) Supporting Document(s ) ID Date Data Source [id number] 03/22/2020 12:00:00 AM EDT [facility] ([facility], ) Name Value Range Interpretation Description Data Sup porting Code Source(s) Document(s ) Vitamin D, 30.6 Normal (applies to MEDGEN (St 25-Hydroxy ng/mL non-numeric [facility] results) [facility], ) ID Date Data Source [id number] 03/22/2020 12:00:00 AM EDT [facility] ([facility], ) Name Value Range Interpretation Description Data Sup porting Code Source(s) Document(s ) Free [place] 141.85 Above high normal MEDGEN (St Lt mg/L [facility], ) Free [place] 110.44 Above high normal MEDGEN (St Lt mg/L [facility], ) [place] 1.28 Normal (applies to MEDGEN (S t a Ratio,U non-numeric [facility] results) [facility], ) ID Date Data Source [id number] 03/22/2020 12:00:00 AM EDT [facility] ([facility], ) Name Value Range Interpretation Description Data Sup porting Code Source(s) Document(s ) Free [place] 41.1 mg/L Above high normal MEDGEN (St Lt Chains,S Juan [facility]'s [facility], ) [place] 0.23 Below low normal MEDGEN (St a Ratio,S [facility], ) Free [place] 176.0 mg/L Above high normal MEDGEN (S t Lt Chains,S [facility], ) ID Date Data Source [id number] 03/22/2020 12:00:00 AM EDT [facility] ([facility], ) Name Value Range Interpretation Code Description Data Supporting Source(s) Document(s ) Creatinine 94.7 mg/dL Normal (applies to MEDGEN (S t , Urine non-numeric [facility] results) [facility], ) Protein/Cr 1072 mg/g Above high normal MEDGEN (St eat Ratio creat [facility], ) ID Date Data Source [id number] 03/22/2020 12:00:00 AM EDT MED[facility] ([facility], ) Name Value Range Interpretation Description Data Sup porting Code Source(s) Document(s ) Immunoglobulin G, 3867 Above high normal MEDG EN (St Qn, Serum mg/dL [facility]) Immunoglobulin A, 17 mg/dL Below low normal MEDGE N (St Qn, Serum [facility], ) Immunoglobulin M, 8 mg/dL Below low normal MEDGE N (St Qn, Serum [facility], ) ID Date Data Source [id number] 03/22/2020 12:00:00 AM EDT MEDGEN (St [facility], ) Name Value Range Interpretation Description Data Sup porting Code Source(s) Document(s ) Iron 248 ug/dL Below low normal MEDGEN (St Bind.Cap.(TIBC [facility]'s ) [facility], ) Iron 76 ug/dL Normal (applies to MEDGEN (St [Mass/volume] non-numeric [facility] in Serum or results) [facility], ) Plasma UIBC 172 ug/dL Normal (applies to MEDGEN (St non-numeric [facility]'s results) [facility], ) Iron 31 % Normal (applies to MEDGEN (St saturation non-numeric Juan [facility]'s [Mass results) [facility], ) Fraction] in Serum or Plasma ID Date Data Source [id number] 03/22/2020 12:00:00 AM EDT [facility] ([facility], ) Name Value Range Interpretation Code Description Data Supporting Source(s) Document(s ) Protein,To 101.5 Normal (applies to MEDGEN (St ruth,Urine mg/dL non-numeric [facility] results) [facility], ) Albumin, U 36.2 % Normal (applies to MEDGEN (St non-numeric [facility] results) [facility], ) Alpha-1-Gl 5.7 % Normal (applies [...] results) Medical, ) ID Date Data Source [id number] 03/22/2020 12:00:00 AM EDT [facility] ([facility], ) Name Value Range Interpretation Description Data Sup porting Code Source(s) Document(s ) Microalbumin 4.0 g/dL Normal (applies MEDGEN (St [Mass/time] in to non-numeric [facility] Urine collected results) Medical, for unspecified PC) duration Hzltq-4-Aqgabhtp 0.8 g/dL Normal (applies [facility] (St to non-numeric [facility] results) Medical, PC) Yplho-5-Jevqaqjw 0.2 g/dL Normal (applies MEDGEN (St to [...] results) Medical, ) ID Date Data Source [id number] 03/22/2020 12:00:00 AM EDT MED[facility] ([facility] [...] results) Medical, PC) ID Date Data Source [id number] 03/22/2020 12:00:00 AM EDT MEDGEN (St [facility] [...] by Light microscopy ID Date Data Source [id number] 03/22/2020 12:00:00 AM EDT [facility] ([facility], ) Name Value Range Interpretation Description [...] in normal [facility] Serum or Plasma [facility], ) Microalbumin 3.9 g/dL Normal (applies MEDGEN (St [Mass/time] in to non-numeric [facility] Urine collected for results) [facility], unspecified ) duration Globulin, Total 5.2 g/dL Above high MEDGEN (St normal [facility], ) A/G Ratio 0.8 Below low normal MEDGEN ([facility], ) Bilirubin.total 0.4 Normal (applies MEDGEN ( St [Mass/volume] in mg/dL to non-numeric [facility] Serum or Plasma results) [facility], ) Alkaline 63 IU/L Normal (applies MEDGEN (St phosphatase to non-numeric Juan [facility]'s [Enzymatic results) [facility], activity/volume] in ) Serum, Plasma or Blood Aspartate 43 IU/L Above high MEDGEN (St aminotransferase normal [facility]'s [Enzymatic Medical, activity/volume] in ) Serum or Plasma Alanine 43 IU/L Normal (applies MEDGEN (St aminotransferase to non-numeric [facility]'s [Enzymatic results) [facility], activity/volume] in ) Serum or Plasma ID Date Data Source [id number] 03/22/2020 12:00:00 AM EDT [facility] ([facility], ) Name Value Range Interpretation Description Data Sup porting Code Source(s) Document(s ) Leukocytes 11.7 Above high normal MEDGEN (St [#/volume] in x10E3/uL [facility] Blood by [facility], ) Automated count Erythrocytes 2.47 Below lower panic MEDGEN (S t [#/volume] in x10E6/uL limits [facility] Blood by [facility], ) Automated count Hemoglobin 8.2 g/dL Below low normal MEDGEN (St [Mass/volume] in Juan C's Blood [facility], ) MCV 94 fL Normal (applies MEDGEN (St to non-numeric [facility] results) [facility], ) Hematocrit 23.3 % Below low normal MEDGEN (St [Volume [facility] C's Fraction] of [facility]) Blood by Automated count MCH 33.2 pg Above high normal [facility] ([place], ) MCHC 35.2 Normal (applies MEDGEN (St g/dL to non-numeric [facility] results) [facility]) RDW 19.0 % Above high normal [facility] ([facility], ) Neutrophils [#] 54 % Normal (applies MEDGEN ( St in Body fluid by to non-numeric [facility] Manual count results) [facility]) Platelets 198 Normal (applies MEDGEN (St [#/area] in x10E3/uL to non-numeric [facility] Blood by results) [facility]) Microscopy high power field Lymphs 13 % Normal (applies MEDGEN (St to non-numeric [facility] results) [facility]) Eos 11 % Normal (applies MEDGEN (St to non-numeric [facility] results) [facility]) Monocytes 16 % Normal (applies MEDGEN (St [#/volume] in to non-numeric [facility] Cord blood results) [facility]) Basos 1 % Normal (applies MEDGEN (St to non-numeric [facility] results) [facility]) Neutrophils 6.4 Normal (applies MEDGEN (St (Absolute) x10E3/uL to non-numeric [facility] results) [facility]) Lymphs 1.5 Normal (applies MEDGEN (St (Absolute) x10E3/uL to non-numeric [facility] results) [facility]) Monocytes(Absolu 1.9 Above high normal MEDGE N (St te) x10E3/uL [facility]) Baso (Absolute) 0.1 Normal (applies MEDGEN ( St x10E3/uL to non-numeric [facility] results) [facility]) Eos (Absolute) 1.3 Above high normal MEDGEN (St x10E3/uL [facility]'s [facility]) Immature 5 % Normal (applies MEDGEN (St Granulocytes to non-numeric [facility] results) [facility]) Immature Grans 0.6 Above high normal MEDGEN (St (Abs) x10E3/uL [facility]) NRBC 4 % Above high normal [facility] ([facility], ) ID Date Data Source [id number] 03/22/2020 12:00:00 AM EDT [facility] ([facility], ) Name Value Range Interpretation Code Description Data Lisa rce(s) Supporting Document(s ) ID Date Data Source [id number] 03/22/2020 12:00:00 AM EDT [facility] ([facility], ) Name Value Range Interpretation Code Description Data Supporting Source(s) Document(s ) PTH, Intact 10 pg/mL Below low normal [facility] ([place], ) ID Date Data Source [id number] 03/22/2020 12:00:00 AM EDT [facility] ([facility], ) Name Value Range Interpretation Code Description Data Supporting Source(s) Document(s ) Ferritin, 349 ng/mL Normal (applies to MEDGEN (St Serum non-numeric [facility]'s results) [facility], ) ID Date Data Source [id number] 03/22/2020 12:00:00 AM EDT [facility] ([facility], ) Name Value Range Interpretation Description Data Sup porting Code Source(s) Document(s ) Deprecated 5.4 mg/dL Above high normal MEDGEN (St Phosphorus [facility]'s [Mass/time] in [facility], ) 24 hour Urine ID Date Data Source [id number] 03/22/2020 12:00:00 AM EDT [facility] ([facility], ) Name Value Range Interpretation Code Description Data Lisa rce(s) Supporting Document(s ) ID Date Data Source [id number] 03/22/2020 12:00:00 AM EDT [facility] ([facility], ) Name Value Range Interpretation Description Data Sup porting Code Source(s) Document(s ) Vitamin D, 30.6 Normal (applies to MEDGEN (St 25-Hydroxy ng/mL non-numeric [facility] results) [facility], ) ID Date Data Source [id number] 03/22/2020 12:00:00 AM EDT [facility] ([facility], ) Name Value Range Interpretation Description Data Sup porting Code Source(s) Document(s ) Free [place] 141.85 Above high normal MEDGEN (St Lt mg/L [facility], ) Free [place] 110.44 Above high normal MEDGEN (St Lt mg/L [facility], ) [place] 1.28 Normal (applies to MEDGEN (S t a Ratio,U non-numeric [facility] results) [facility], ) ID Date Data Source [id number] 03/22/2020 12:00:00 AM EDT [facility] ([facility], ) Name Value Range Interpretation Description Data Sup porting Code Source(s) Document(s ) Free [place] 41.1 mg/L Above high normal MEDGEN (St Lt Chains,S [facility], ) [place] 0.23 Below low normal MEDGEN (St a Ratio,S [facility], ) Free [place] 176.0 mg/L Above high normal MEDGEN (S t Lt Chains,S [facility], ) ID Date Data Source [id number] 03/22/2020 12:00:00 AM EDT [facility] ([facility], ) Name Value Range Interpretation Code Description Data Supporting Source(s) Document(s ) Creatinine 94.7 mg/dL Normal (applies to MEDGEN (S t , Urine non-numeric [facility] results) [facility], ) Protein/Cr 1072 mg/g Above high normal MEDGEN (St eat Ratio creat [facility], ) ID Date Data Source [id number] 03/22/2020 12:00:00 AM EDT [facility] ([facility], ) Name Value Range Interpretation Description Data Sup porting Code Source(s) Document(s ) Immunoglobulin G, 3867 Above high normal MEDG EN (St Qn, Serum mg/dL [facility], ) Immunoglobulin A, 17 mg/dL Below low normal MEDGE N (St Qn, Serum [facility], ) Immunoglobulin M, 8 mg/dL Below low normal MEDGE N (St Qn, Serum [facility], ) ID Date Data Source [id number] 03/22/2020 12:00:00 AM EDT [facility] ([facility], ) Name Value Range Interpretation Description Data Sup porting Code Source(s) Document(s ) Iron 248 ug/dL Below low normal MEDGEN (St Bind.Cap.(TIBC Juan C's ) [facility], ) UIBC 172 ug/dL Normal (applies to MEDGEN (St non-numeric [facility]'s results) [facility]) Iron 76 ug/dL Normal (applies to MEDGEN (St [Mass/volume] non-numeric Juan C's in Serum or results) [facility], ) Plasma Iron 31 % Normal (applies to MEDGEN (St saturation non-numeric Juan [facility]'s [Mass results) [facility], ) Fraction] in Serum or Plasma ID Date Data Source [id number] 03/22/2020 12:00:00 AM EDT [facility] ([facility], ) Name Value Range Interpretation Code Description Data Supporting Source(s) Document(s ) Protein,To 101.5 Normal (applies to MEDGEN (St ruth,Urine mg/dL non-numeric [facility]'s results) [facility], ) Albumin, U 36.2 % Normal (applies to MEDGEN (St non-numeric Juan C's results) [facility], ) Alpha-1-Gl 5.7 % Normal (applies to MEDGEN (St obulin, U non-numeric [facility]'s results) [facility], ) Alpha-2-Gl 12.8 % Normal (applies to MEDGEN (St obulin, U non-numeric [facility]'s results) [facility], ) Gamma 15.6 % Normal (applies to MEDGEN (St Globulin, non-numeric Juan C's U results) [facility], ) Beta 29.7 % Normal (applies to MEDGEN (St Globulin, non-numeric Juan C's U results) [facility], ) PDF . Normal (applies to MEDGEN (St non-numeric Juan C's results) [facility], ) M-Kevyn, % Comment: Normal (applies to MEDGEN (St non-numeric Juan C's results) [facility], ) ID Date Data Source [id number] 03/22/2020 12:00:00 AM EDT [facility] ([facility], ) Name Value Range Interpretation Description Data Sup porting Code Source(s) Document(s ) Immunoglobulin G, 3867 Above high normal MEDG EN (St Qn, Serum mg/dL Juan C's [facility], ) Immunoglobulin A, 17 mg/dL Below low normal MEDGE N (St Qn, Serum Juan C's [facility], ) Immunoglobulin M, 8 mg/dL Below low normal MEDGE N (St Qn, Serum Juan C's [facility], ) ID Date Data Source [id number] 03/22/2020 12:00:00 AM EDT [facility] ([facility], ) Name Value Range Interpretation Description Data Sup porting Code Source(s) Document(s ) Iron 248 ug/dL Below low normal MEDGEN (St Bind.Cap.(TIBC Juan C's ) Medical, ) UIBC 172 ug/dL Normal (applies to MEDGEN (St non-numeric Juan C's results) [facility], ) Iron 76 ug/dL Normal (applies to MEDGEN (St [Mass/volume] non-numeric Juan C's in Serum or results) [facility], ) Plasma Iron 31 % Normal (applies to MEDGEN (St saturation non-numeric Juan C's [Mass results) [facility], ) Fraction] in Serum or Plasma ID Date Data Source [id number] 03/22/2020 12:00:00 AM EDT [facility] ([facility], ) Name Value Range Interpretation Code Description Data Supporting Source(s) Document(s ) Protein,To 101.5 Normal (applies to MEDGEN (St ruth,Urine mg/dL non-numeric [facility]'s results) [facility], ) Albumin, U 36.2 % Normal (applies to MEDGEN (St non-numeric Juan C's results) [facility], ) Alpha-1-Gl 5.7 % Normal (applies to MEDGEN (St obulin, U non-numeric [facility]'s results) [facility], ) Alpha-2-Gl 12.8 % Normal (applies to MEDGEN (St obulin, U non-numeric [facility] results) [facility], ) Beta 29.7 % Normal (applies to MEDGEN (St Globulin, non-numeric Juan C's U results) [facility], ) Gamma 15.6 % Normal (applies to MEDGEN (St Globulin, non-numeric [facility] C's U results) [facility], ) M-Kevyn, % Comment: Normal (applies to MEDGEN (St non-numeric [facility] C's results) [facility], ) PDF . Normal (applies to MEDGEN (St non-numeric Juan C's results) [facility], ) ID Date Data Source [id number] 03/22/2020 12:00:00 AM EDT [facility] ([facility], ) Name Value Range Interpretation Description Data Sup porting Code Source(s) Document(s ) Microalbumin 4.0 g/dL Normal (applies MEDGEN (St [Mass/time] in to non-numeric [facility] Urine collected results) Medical, for unspecified PC) duration Wsqod-2-Moxlxkwj 0.8 g/dL Normal (applies MEDGEN (St to non-numeric Juan C's results) Medical, ) Lrtcw-4-Pbrseioe 0.2 g/dL Normal (applies MEDGEN (St to non-numeric Juan C's results) Medical, PC) Gamma globulin 3.5 g/dL Above high normal MEDGEN (St [Mass/volume] by [facility]'s Electrophoresis in Medical, Urine collected PC) for unspecified duration Beta globulin 0.7 g/dL Normal (applies MEDGEN (St [Mass/volume] in to non-numeric [facility]'s Urine by results) Medical, Electrophoresis PC) M-Kevyn 3.2 g/dL Above high normal [facility]GEN ([facility], ) Globulin, Total 5.1 g/dL Above high normal [facility]GEN ([facility], ) A/G Ratio 0.8 Normal (applies MEDGEN (St to non-numeric Juan C's results) Medical, ) PDF . Normal (applies MEDGEN (St to non-numeric [facility]'s results) Medical, ) ID Date Data Source [id number] 03/22/2020 12:00:00 AM EDT [facility] ([facility], ) Name Value Range Interpretation Description [...] results) Medical, PC) ID Date Data Source [id number] 03/22/2020 12:00:00 AM EDT MEDGEN (St [facility] [...] by Light microscopy ID Date Data Source [id number] 03/22/2020 12:00:00 AM EDT [facility] ([facility]) Name Value Range Interpretation Description Data Sup porting Code Source(s) Document(s ) Glucose 88 mg/dL Normal (applies MEDGEN (St [Mass/volume] in to non-numeric [facility] Urine collected for results) Medical, unspecified PC) duration Urea nitrogen 61 mg/dL Above high MEDGEN (St [Mass/volume] in normal J[facility] N[facility]'s Serum or Plasma Medical, PC) Creatinine 5.97 Above high MEDGEN (St [Interpretation] in mg/dL normal [facility] Urine Medical, PC) eGFR If NonAfricn 9 Below low normal MEDGE N (St Am mL/min/1 Juan [facility]'s .73 Medical, ) eGFR If Africn Am 10 Below low normal MEDGE N (St mL/min/1 Juan [facility]'s .73 [facility], ) BUN/Creatinine 10 Normal (applies MEDGEN [...] Serum or Plasma ID Date Data Source [id number] 03/22/2020 12:00:00 AM EDT [facility] ([facility], ) Name Value Range Interpretation Description Data Sup porting Code Source(s) Document(s ) Leukocytes 11.7 Above high normal MEDGEN (St [#/volume] in x10E3/uL [facility]'s Blood by [facility], ) Automated count Erythrocytes 2.47 Below lower panic MEDGEN (S t [#/volume] in x10E6/uL limits [facility] Blood by [facility], ) Automated count Hemoglobin 8.2 g/dL Below low normal MEDGEN (St [Mass/volume] in Juan C's Blood [facility], ) Hematocrit 23.3 % Below low normal MEDGEN (St [Volume Juan C's Fraction] of [facility], ) Blood by Automated count MCV 94 fL Normal (applies MEDGEN (St to non-numeric Juan C's results) [facility], ) MCH 33.2 pg Above high normal MEDGEN ([facility], ) MCHC 35.2 Normal (applies MEDGEN (St g/dL to non-numeric Juan C's results) [facility], ) RDW 19.0 % Above high normal MEDGEN ([facility], ) Platelets 198 Normal (applies MEDGEN (St [#/area] in x10E3/uL to non-numeric Juan C's Blood by results) [facility], ) Microscopy high power field Neutrophils [#] 54 % Normal (applies MEDGEN ( St in Body fluid by to non-numeric Juan C's Manual count results) [facility], ) Lymphs 13 % Normal (applies MEDGEN (St to non-numeric Juan C's results) [facility], ) Monocytes 16 % Normal (applies MEDGEN (St [#/volume] in to non-numeric Juan C's Cord blood results) [facility], ) Eos 11 % Normal (applies MEDGEN (St to non-numeric Juan C's results) [facility], ) Basos 1 % Normal (applies MEDGEN (St to non-numeric Juan C's results) [facility], ) Neutrophils 6.4 Normal (applies MEDGEN (St (Absolute) x10E3/uL to non-numeric Juan C's results) [facility], ) Lymphs 1.5 Normal (applies MEDGEN (St (Absolute) x10E3/uL to non-numeric Juan C's results) [facility], ) Monocytes(Absolu 1.9 Above high normal MEDGE N (St te) x10E3/uL [facility]) Eos (Absolute) 1.3 Above high normal MEDGEN (St x10E3/uL [facility], ) Immature 5 % Normal (applies MEDGEN (St Granulocytes to non-numeric [facility] results) [facility] [facility], ) Baso (Absolute) 0.1 Normal (applies MEDGEN ( St x10E3/uL to non-numeric Juan C's results) [facility]) Immature Grans 0.6 Above high normal MEDGEN (St (Abs) x10E3/uL [facility], ) NRBC 4 % Above high normal MEDGEN ([facility], ) ID Date Data Source [id number] 11/17/2019 12:00:00 AM EST MEDGEN ([facility], ) Name Value Range Interpretation Description Data Sup porting Code Source(s) Document(s ) Glucose 146 mg/dL Above high normal MEDGEN (St [Mass/volume] Juan C's in Urine [facility], ) collected for unspecified duration Urea nitrogen 41 mg/dL Above high normal MEDGEN ( St [Mass/volume] Juan C's in Serum or [facility], ) Plasma Creatinine 3.05 Above high normal MEDGEN (St [Interpretation mg/dL Juan C's ] in Urine [facility], ) eGFR If 19 Below low normal MEDGEN (St NonAfricn Am mL/min/1. Juan C's [address] [place] [address], ) eGFR If Africn 22 Below low normal MEDGEN ( St Am mL/min/1. Juan C's [address] [facility], ) BUN/Creatinine 13 Normal (applies MEDGEN (S t Ratio to non-numeric Juanc 's results) [facility], ) Sodium 140 Normal (applies MEDGEN (St [Moles/volume] mmol/L to non-numeric Juan C's in Serum or results) [facility], ) Plasma Potassium 4.0 Normal (applies MEDGEN (St [Mass/volume] mmol/L to non-numeric Juan C's in Blood results) [facility], ) Chloride 104 Normal (applies MEDGEN (St [Moles/volume] mmol/L to non-numeric Juan C's in Serum or results) [facility], ) Plasma Carbon dioxide, 21 mmol/L Normal (applies MEDGEN ( St total to non-numeric Juan C's [Moles/volume] results) Medical, ) in Serum or Plasma Calcium 9.3 mg/dL Normal (applies MEDGEN (St [Moles/volume] to non-numeric Juan C's in Urine results) Medical, ) collected for unspecified duration ID Date Data Source [id number] 11/17/2019 12:00:00 AM EST [facility]GEN ([facility], ) Name Value Range Interpretation Description Data Sup porting Code Source(s) Document(s ) Glucose 146 mg/dL Above high normal MEDGEN (St [Mass/volume] Juan C's in Urine [facility], ) collected for unspecified duration Urea nitrogen 41 mg/dL Above high normal MEDGEN ( St [Mass/volume] Juan C's in Serum or Medical, ) Plasma Creatinine 3.05 Above high normal MEDGEN (St [Interpretation mg/dL Juan C's ] in Urine [facility], ) eGFR If 19 Below low normal MEDGEN (St NonAfricn Am mL/min/1. Juan C's [address] [facility], ) eGFR If Africn 22 Below low normal MEDGEN ( St Am mL/min/1. Juan C's 73 [facility], ) BUN/Creatinine 13 Normal (applies MEDGEN [...] for unspecified duration ID Date Data Source [id number] 11/17/2019 12:00:00 AM EST [facility] ([facility], ) Name Value Range Interpretation Description Data Sup porting Code Source(s) Document(s ) Glucose 146 mg/dL Above high normal MEDGEN (St [Mass/volume] Juan C's in Urine [facility], ) collected for unspecified duration Creatinine 3.05 Above high normal MEDGEN (St [Interpretation mg/dL Juan C's ] in Urine [facility], ) Urea nitrogen 41 mg/dL Above high normal MEDGEN ( St [Mass/volume] Juan C's in Serum or [facility], ) Plasma eGFR If 19 Below low normal MEDGEN (St NonAfricn Am mL/min/. Juan C 73 [facility], ) BUN/Creatinine 13 Normal (applies MEDGEN (S t Ratio to non-numeric Juan C's results) [facility]) eGFR If Africn 22 Below low normal MEDGEN ( St Am mL/min/. Juan C 73 [facility], ) Potassium 4.0 Normal (applies MEDGEN (St [Mass/volume] mmol/L to non-numeric Juan C's in Blood results) [facility]) Sodium 140 Normal (applies MEDGEN (St [Moles/volume] mmol/L to non-numeric Juan C's in Serum or results) [facility]) Plasma Chloride 104 Normal (applies MEDGEN (St [Moles/volume] mmol/L to non-numeric Juan C's in Serum or results) [facility]) Plasma Calcium 9.3 mg/dL Normal (applies MEDGEN (St [Moles/volume] to non-numeric Juan C's in Urine results) [facility], ) collected for unspecified duration Carbon dioxide, 21 mmol/L Normal (applies MEDGEN ( St total to non-numeric Juan C's [Moles/volume] results) [facility]) in Serum or Plasma ID Date Data Source [id number] 11/17/2019 12:00:00 AM EST [facility]GEN ([facility], ) Name Value Range Interpretation Description Data Sup porting Code Source(s) Document(s ) Glucose 146 mg/dL Above high normal MEDGEN (St [Mass/volume] Juan C's in Urine [facility], ) collected for unspecified duration Urea nitrogen 41 mg/dL Above high normal MEDGEN ( St [Mass/volume] Juan C's in Serum or [facility], ) Plasma Creatinine 3.05 Above high normal MEDGEN (St [Interpretation mg/dL Juan C's ] in Urine [facility], ) eGFR If 19 Below low normal MEDGEN (St NonAfricn Am mL/min/1. Juan C's [address] [facility], ) eGFR If Africn 22 Below low normal MEDGEN ( St Am mL/min/1. Juan C's 73 [facility], ) BUN/Creatinine 13 Normal (applies MEDGEN [...] to non-numeric Juan C's in Blood results) [facility], ) Carbon dioxide, 21 mmol/L Normal (applies MEDGEN ( St total to non-numeric Juan C's [Moles/volume] results) [facility], ) in Serum or Plasma Calcium 9.3 mg/dL Normal (applies MEDGEN (St [Moles/volume] to non-numeric Juan C's in Urine results) [facility], ) collected for unspecified duration ID Date Data Source [id number] 11/17/2019 12:00:00 AM EST [facility]GEN ([facility], ) Name Value Range Interpretation Description Data Sup porting Code Source(s) Document(s ) Glucose 146 mg/dL Above high normal MEDGEN (St [Mass/volume] Juan C's in Urine [facility], ) collected for unspecified duration Urea nitrogen 41 mg/dL Above high normal MEDGEN ( St [Mass/volume] Juan C's in Serum or [facility], ) Plasma Creatinine 3.05 Above high normal MEDGEN (St [Interpretation mg/dL Juan C's ] in Urine [facility], ) eGFR If 19 Below low normal MEDGEN (St NonAfricn Am mL/min/1. Juan C's 73 [facility], ) eGFR If Africn 22 Below low normal MEDGEN ( St Am mL/min/1. Juan C's 73 [facility], ) BUN/Creatinine 13 Normal (applies MEDGEN (S t Ratio to non-numeric Juan C's results) [facility], ) Potassium 4.0 Normal (applies MEDGEN (St [Mass/volume] mmol/L to non-numeric Juan C's in Blood results) Medical, ) Sodium 140 Normal (applies MEDGEN (St [Moles/volume] mmol/L to non-numeric Juan C's in Serum or results) [facility], ) Plasma Chloride 104 Normal (applies MEDGEN (St [Moles/volume] mmol/L to non-numeric Juan C's in Serum or results) Medical, ) Plasma Carbon dioxide, 21 mmol/L Normal (applies MEDGEN ( St total to non-numeric Juan C's [Moles/volume] results) [facility], ) in Serum or Plasma Calcium 9.3 mg/dL Normal (applies MEDGEN (St [Moles/volume] to non-numeric Juan C's in Urine results) [facility], ) collected for unspecified duration ID Date Data Source [id number] 11/17/2019 12:00:00 AM EST [facility]GEN ([facility], ) Name Value Range Interpretation Description Data Sup porting Code Source(s) Document(s ) Glucose 146 mg/dL Above high normal MEDGEN (St [Mass/volume] Juan C's in Urine [facility], ) collected for unspecified duration Urea nitrogen 41 mg/dL Above high normal MEDGEN ( St [Mass/volume] Juan C's in Serum or Medical, ) Plasma Creatinine 3.05 Above high normal MEDGEN (St [Interpretation mg/dL Juan C's ] in Urine [facility], ) eGFR If 19 Below low normal MEDGEN (St NonAfricn Am mL/min/1. Juan C's 73 [facility], ) eGFR If Africn 22 Below low normal MEDGEN ( St Am mL/min/1. Juan C's 73 [facility], ) BUN/Creatinine 13 Normal (applies MEDGEN (S t Ratio to non-numeric Juan C's results) [facility], ) Sodium 140 Normal (applies MEDGEN (St [Moles/volume] mmol/L to non-numeric Juan C's in Serum or results) Medical, ) Plasma Potassium 4.0 Normal (applies MEDGEN (St [Mass/volume] mmol/L to non-numeric Juan C's in Blood results) [facility], ) Chloride 104 Normal (applies MEDGEN (St [Moles/volume] mmol/L to non-numeric Juan C's in Serum or results) Medical, ) Plasma Carbon dioxide, 21 mmol/L Normal (applies MEDGEN ( St total to non-numeric Juan C's [Moles/volume] results) Medical, ) in Serum or Plasma Calcium 9.3 mg/dL Normal (applies MEDGEN (St [Moles/volume] to non-numeric Juan C's in Urine results) [facility], ) collected for unspecified duration ID Date Data Source [id number] 11/17/2019 12:00:00 AM EST [facility]GEN ([facility], ) Name Value Range Interpretation Description Data Sup porting Code Source(s) Document(s ) Glucose 146 mg/dL Above high normal MEDGEN (St [Mass/volume] Juan C's in Urine [facility], ) collected for unspecified duration Urea nitrogen 41 mg/dL Above high normal MEDGEN ( St [Mass/volume] Juan C's in Serum or [facility], ) Plasma Creatinine 3.05 Above high normal MEDGEN (St [Interpretation mg/dL Juan C's ] in Urine [facility], ) eGFR If 19 Below low normal MEDGEN (St NonAfricn Am mL/min/1. Juan C's 73 [facility], ) eGFR If Africn 22 Below low normal MEDGEN ( St Am mL/min/1. Juan C's 73 [facility], ) BUN/Creatinine 13 Normal (applies MEDGEN [...] to non-numeric Juan C's in Urine results) [facility], ) collected for unspecified duration Carbon dioxide, 21 mmol/L Normal (applies MEDGEN ( St total to non-numeric Juan C's [Moles/volume] results) Medical, ) in Serum or Plasma ID Date Data Source [id number] 11/17/2019 12:00:00 AM EST [facility]GEN ([facility], ) Name Value Range Interpretation Description Data Sup porting Code Source(s) Document(s ) Glucose 146 mg/dL Above high normal MEDGEN (St [Mass/volume] Juan C's in Urine [facility], ) collected for unspecified duration Urea nitrogen 41 mg/dL Above high normal MEDGEN ( St [Mass/volume] Juan C's in Serum or Medical, ) Plasma Creatinine 3.05 Above high normal MEDGEN (St [Interpretation mg/dL Juan C's ] in Urine Medical, ) eGFR If 19 Below low normal MEDGEN (St NonAfricn Am mL/min/1. Juan C's [address] [facility], ) eGFR If Africn 22 Below low normal MEDGEN ( St Am mL/min/. Juan C' [address] [facility], ) BUN/Creatinine 13 Normal (applies MEDGEN (S t Ratio to non-numeric Juan C's results) [facility], ) Sodium 140 Normal (applies MEDGEN [...] to non-numeric Juan C's in Urine results) [facility], ) collected for unspecified duration ID Date Data Source [id number] 11/17/2019 12:00:00 AM EST [facility] ([facility], ) Name Value Range Interpretation Description Data Sup porting Code Source(s) Document(s ) Glucose 146 mg/dL Above high normal MEDGEN (St [Mass/volume] Juan C's in Urine [facility], ) collected for unspecified duration Urea nitrogen 41 mg/dL Above high normal MEDGEN ( St [Mass/volume] Juan C's in Serum or Medical, ) Plasma Creatinine 3.05 Above high normal MEDGEN (St [Interpretation mg/dL Juan C's ] in Urine [facility], ) eGFR If 19 Below low normal MEDGEN (St NonAfricn Am mL/min/. 73 [facility], ) eGFR If Africn 22 Below low normal MEDGEN ( St Am mL/min/. 73 [facility], ) BUN/Creatinine 13 Normal (applies MEDGEN (S t Ratio to non-numeric Juan C's results) [facility], ) Sodium 140 Normal (applies MEDGEN (St [Moles/volume] mmol/L to non-numeric Juan C's in Serum or results) [facility], ) Plasma Potassium 4.0 Normal (applies MEDGEN (St [Mass/volume] mmol/L to non-numeric Juan C's in Blood results) [facility], ) Chloride 104 Normal (applies MEDGEN (St [Moles/volume] mmol/L to non-numeric Juan C's in Serum or results) [facility], ) Plasma Carbon dioxide, 21 mmol/L Normal (applies MEDGEN ( St total to non-numeric Juan C's [Moles/volume] results) [facility], ) in Serum or Plasma Calcium 9.3 mg/dL Normal (applies MEDGEN (St [Moles/volume] to non-numeric Juan C's in Urine results) [facility], ) collected for unspecified duration ID Date Data Source [id number] 11/17/2019 12:00:00 AM EST [facility]GEN ([facility], ) Name Value Range Interpretation Description Data Sup porting Code Source(s) Document(s ) Glucose 146 mg/dL Above high normal MEDGEN (St [Mass/volume] Juan C's in Urine [facility], ) collected for unspecified duration Urea nitrogen 41 mg/dL Above high normal MEDGEN ( St [Mass/volume] Juan C's in Serum or [facility], ) Plasma Creatinine 3.05 Above high normal MEDGEN (St [Interpretation mg/dL Juan C's ] in Urine [facility], ) eGFR If Africn 22 Below low normal MEDGEN ( St Am mL/min/. 73 [facility], ) eGFR If 19 Below low normal MEDGEN (St NonAfricn Am mL/min/. [facility], ) BUN/Creatinine 13 Normal (applies MEDGEN (S t Ratio to non-numeric Juan C's results) [facility], ) Sodium 140 Normal (applies MEDGEN [...] to non-numeric Juan C's in Urine results) [facility], ) collected for unspecified duration ID Date Data Source [id number] 11/17/2019 12:00:00 AM EST [facility] ([facility], ) Name Value Range Interpretation Description Data Sup porting Code Source(s) Document(s ) Glucose 146 mg/dL Above high normal MEDGEN (St [Mass/volume] Juan C's in Urine [facility], ) collected for unspecified duration Urea nitrogen 41 mg/dL Above high normal MEDGEN ( St [Mass/volume] Juan C's in Serum or Medical, ) Plasma Creatinine 3.05 Above high normal MEDGEN (St [Interpretation mg/dL Juan C's ] in Urine [facility], ) eGFR If 19 Below low normal MEDGEN (St NonAfricn Am mL/min/1. Juan C's [address] [facility], ) eGFR If Africn 22 Below low normal MEDGEN ( St Am mL/min/1. Juan C's 73 [facility], ) BUN/Creatinine 13 Normal (applies MEDGEN (S t Ratio to non-numeric Juan C's results) [facility], ) Potassium 4.0 Normal (applies MEDGEN [...] to non-numeric Juan C's in Urine results) [facility], ) collected for unspecified duration Carbon dioxide, 21 mmol/L Normal (applies MEDGEN ( St total to non-numeric Juan C's [Moles/volume] results) [facility], ) in Serum or Plasma ID Date Data Source [id number] 11/17/2019 12:00:00 AM EST [facility]GEN ([facility], ) Name Value Range Interpretation Description Data Sup porting Code Source(s) Document(s ) Glucose 146 mg/dL Above high normal MEDGEN (St [Mass/volume] Juan C's in Urine [facility], ) collected for unspecified duration Urea nitrogen 41 mg/dL Above high normal MEDGEN ( St [Mass/volume] Juan C's in Serum or [facility], ) Plasma Creatinine 3.05 Above high normal MEDGEN (St [Interpretation mg/dL Juan C's ] in Urine [facility], ) eGFR If Africn 22 Below low normal MEDGEN ( St Am mL/min/1. Juan C's [address] [facility], ) eGFR If 19 Below low normal MEDGEN (St NonAfricn Am mL/min/1. Juan C's 73 [facility], ) BUN/Creatinine 13 Normal (applies MEDGEN (S t Ratio to non-numeric Juan C's results) [facility], ) Sodium 140 Normal (applies MEDGEN (St [Moles/volume] mmol/L to non-numeric Juan C's in Serum or results) [facility], ) Plasma Potassium 4.0 Normal (applies MEDGEN (St [Mass/volume] mmol/L to non-numeric Juan C's in Blood results) [facility], ) Carbon dioxide, 21 mmol/L Normal (applies MEDGEN ( St total to non-numeric Juan C's [Moles/volume] results) Medical, ) in Serum or Plasma Chloride 104 Normal (applies MEDGEN (St [Moles/volume] mmol/L to non-numeric Juan C's in Serum or results) [facility], ) Plasma Calcium 9.3 mg/dL Normal (applies MEDGEN (St [Moles/volume] to non-numeric Juan C's in Urine results) [facility], ) collected for unspecified duration ID Date Data Source [id number] 09/22/2019 12:00:00 AM EST [facility] ([facility], ) Name Value Range Interpretation Code Description Data Lisa rce(s) Supporting Document(s ) ID Date Data Source [id number] 09/22/2019 12:00:00 AM EST MEDGEN ([facility], ) Name Value Range Interpretation Code Description Data Supporting Source(s) Document(s ) PTH, Intact 14 pg/mL Below low normal [facility] ([facility], ) ID Date Data Source [id number] 09/22/2019 12:00:00 AM EST MEDGEN ([facility], ) Name Value Range Interpretation Code Description Data Supporting Source(s) Document(s ) Ferritin, 329 ng/mL Normal (applies to MEDGEN (St Serum non-numeric Juan C's results) [facility], ) ID Date Data Source [id number] 09/22/2019 12:00:00 AM EST MEDGEN ([facility], ) Name Value Range Interpretation Description Data Sup porting Code Source(s) Document(s ) Deprecated 4.8 mg/dL Above high normal MEDGEN (St Phosphorus Juan C's [Mass/time] in [facility], ) 24 hour Urine ID Date Data Source [id number] 09/22/2019 12:00:00 AM EST MEDGEN ([facility], ) Name Value Range Interpretation Code Description Data Lisa rce(s) Supporting Document(s ) RAGINI Normal (applies to MEDGEN (St Interpreta non-numeric results) Juan C's edical, tion:U ) ID Date Data Source [id number] 09/22/2019 12:00:00 AM EST MEDGEN ([facility], ) Name Value Range Interpretation Description Data Sup porting Code Source(s) Document(s ) Vitamin D, 36.2 Normal (applies to MEDGEN (St 25-Hydroxy ng/mL non-numeric Juan C's results) [facility], ) ID Date Data Source [id number] 09/22/2019 12:00:00 AM EST MEDGEN ([facility], ) Name Value Range Interpretation Code Description Data Supporting Source(s) Document(s ) Albumin, 693.2 Normal (applies to MEDGEN (St Urine ug/mL non-numeric Juan C's results) [facility], ) Alb/Creat 394.1 mg/g Above high normal MEDGEN (St Ratio creat [facility], ) ID Date Data Source [id number] 09/22/2019 12:00:00 AM EST MEDGEN ([facility], ) Name Value Range Interpretation Description Data Sup porting Code Source(s) Document(s ) Free [place] 476.00 Above high normal MEDGEN (St Lt mg/L Juan C's [facility], ) Free Lambda 44.50 mg/L Above high normal MEDGEN (S t Lt Juan C's [facility], ) [place] 10.70 Above high normal MEDGEN (St a Ratio,U [facility], ) ID Date Data Source [id number] 09/22/2019 12:00:00 AM EST MEDGEN ([facility], ) Name Value Range Interpretation Description Data Sup porting Code Source(s) Document(s ) Free [place] 38.9 mg/L Above high normal MEDGEN (St Lt [facility]ains,S [facility], ) Free Lambda 133.0 mg/L Above high normal MEDGEN (S t Lt [place],S [facility], ) [place] 0.29 Normal (applies to MEDGEN (S t a Ratio,S non-numeric Juan C's results) [facility], ) ID Date Data Source [id number] 09/22/2019 12:00:00 AM EST MEDGEN ([facility], ) Name Value Range Interpretation Code Description Data Supporting Source(s) Document(s ) Creatinine 175.9 Normal (applies to MEDGEN (St , Urine mg/dL non-numeric Juan C's results) [facility], ) Protein/Cr 833 mg/g Above high normal MEDGEN (St eat Ratio creat [facility], ) ID Date Data Source [id number] 09/22/2019 12:00:00 AM EST MEDGEN ([facility], ) Name Value Range Interpretation Description Data Sup porting Code Source(s) Document(s ) Immunofixation Normal (applies MEDGEN (S t Result, Serum to non-numeric Juan C's results) [facility]) Immunoglobulin G, 3973 Above high normal MEDG EN (St Qn, Serum mg/dL [facility]) Immunoglobulin M, 13 mg/dL Below low normal MEDGE N (St Qn, Serum [facility]) Immunoglobulin A, 25 mg/dL Below low normal MEDGE N (St Qn, Serum Juan C's [facility], ) ID Date Data Source [id number] 09/22/2019 12:00:00 AM EST MEDGEN ([facility], ) Name Value Range Interpretation Description Data Sup porting Code Source(s) Document(s ) Iron 297 ug/dL Normal (applies to MEDGEN (St Bind.Cap.(TIBC non-numeric Juan C's ) results) [facility], ) UIBC 222 ug/dL Normal (applies to MEDGEN (St non-numeric Juan C's results) [facility], ) Iron 75 ug/dL Normal (applies to MEDGEN (St [Mass/volume] non-numeric Juan C's in Serum or results) [facility], ) Plasma Iron 25 % Normal (applies to MEDGEN (St saturation non-numeric Juan C's [Mass results) [facility], ) Fraction] in Serum or Plasma ID Date Data Source [id number] 09/22/2019 12:00:00 AM EST MEDGEN ([facility], ) Name Value Range Interpretation Description Data Sup porting Code Source(s) Document(s ) Protein,Tot 146.6 Normal (applies to MEDGEN (S t al,Urine mg/dL non-numeric Juan C's results) [facility], ) Albumin, U 47.8 % Normal (applies to MEDGEN (St non-numeric Juan C's results) [facility], ) Alpha-1-Nadine 3.5 % Normal (applies to MEDGEN (S t bulin, U non-numeric Juan C's results) [facility], ) Alpha-2-Nadine 9.6 % Normal (applies to MEDGEN (S t bulin, U non-numeric Juan C's results) [facility], ) Beta 24.4 % Normal (applies to MEDGEN (St Globulin, U non-numeric Juan C's results) [facility], ) Gamma 14.8 % Normal (applies to MEDGEN (St Globulin, U non-numeric Juan C's results) [facility], ) M-Kevyn, % 9.8 % Above high normal [facility] ([facility], ) Please Normal (applies to MEDGEN (St note: non-numeric Juan C's results) [facility], ) PDF . Normal (applies to MEDGEN (St non-numeric Juan C's results) [facility], ) ID Date Data Source [id number] 09/22/2019 12:00:00 AM EST [facility] ([facility], ) Name Value Range Interpretation Description Data Sup porting Code Source(s) Document(s ) Protein 9.0 g/dL Above high normal MEDGEN (St [Mass/volume] in Juan C's Serum or Plasma Medical, ) Fqobn-8-Qmqonpss 0.2 g/dL Normal (applies MEDGEN (St to non-numeric Juan C's results) Medical, PC) Microalbumin 4.0 g/dL Normal (applies MEDGEN (St [Mass/time] in to non-numeric Juan C's Urine collected results) Medical, for unspecified PC) duration Pfdlq-9-Eitxafzp 0.8 g/dL Normal (applies MEDGEN (St to non-numeric Juan C's results) Medical, PC) Beta globulin 0.8 g/dL Normal (applies MEDGEN (St [Mass/volume] in to non-numeric Juan C's Urine by results) Medical, Electrophoresis PC) Gamma globulin 3.2 g/dL Above high normal MEDGEN (St [Mass/volume] by Juan C's Electrophoresis in Medical, Urine collected PC) for unspecified duration M-Kevyn 2.9 g/dL Above high normal [facility]GEN ([place], ) Globulin, Total 5.0 g/dL Above high normal MEDGEN ([place], ) A/G Ratio 0.8 Normal (applies MEDGEN (St to non-numeric Juan C's results) Medical, PC) Please note: Normal (applies MEDGEN (St to non-numeric Juan C's results) Medical, PC) PDF . Normal (applies MEDGEN (St to non-numeric Juan C's results) Medical, PC) ID Date Data Source [id number] 09/22/2019 12:00:00 AM EST MEDGEN (St [facility] [...] to non-numeric Juan C's Urine collected results) [facility], for unspecified PC) duration Protein Abnormal [...] results) Medical, ) ID Date Data Source [id number] 09/22/2019 12:00:00 AM EST MEDGEN (St Julienne [...] MEDGEN (St to non-numeric Juan C's results) [facility], ) Crystal Type Calcium Normal (applies MEDGEN (St Oxalate to non-numeric Juan C's results) [facility]) Bacteria Few Normal (applies MEDGEN (St [Presence] in to non-numeric Juan C's Prostatic results) [facility]) fluid by Light microscopy ID Date Data Source [id number] 09/22/2019 12:00:00 AM EST MED[facility] ([facility], ) Name Value Range Interpretation Description Data Sup porting Code Source(s) Document(s ) Leukocytes 9.5 Normal (applies MEDGEN (St [#/volume] in x10E3/uL to non-numeric Juan C's Blood by results) [facility], ) Automated count Hemoglobin 10.9 Below low normal MEDGEN (St [Mass/volume] in g/dL Ujan C's Blood [facility]) Erythrocytes 3.28 Below low normal MEDGEN (St [#/volume] in x10E6/uL Juan C's Blood by [facility], ) Automated count Hematocrit 32.1 % Below low normal MEDGEN (St [Volume Juan C's Fraction] of [facility], ) Blood by Automated count MCV 98 fL Above high normal MEDGEN ([facility], ) MCH 33.2 pg Above high normal MEDGEN ([facility], ) MCHC 34.0 Normal (applies MEDGEN (St g/dL to non-numeric Juan C's results) [facility]) RDW 17.3 % Above high normal MEDGEN ([facility], ) Neutrophils [#] 53 % Normal (applies MEDGEN ( St in Body fluid by to non-numeric Juan C's Manual count results) [facility], ) Platelets 240 Normal (applies MEDGEN (St [#/area] in x10E3/uL to non-numeric Juan C's Blood by results) [facility]) Microscopy high power field Lymphs 19 % Normal (applies MEDGEN (St to non-numeric Juan C's results) [facility]) Monocytes 15 % Normal (applies MEDGEN (St [#/volume] in to non-numeric Juan C's Cord blood results) [facility]) Eos 11 % Normal (applies MEDGEN (St to non-numeric Juan C's results) [facility]) Basos 0 % Normal (applies MEDGEN (St [...] results) Medical, ) ID Date Data Source [id number] 09/22/2019 12:00:00 AM EST [facility] ([facility], ) Name Value Range Interpretation Code Description Data Lisa rce(s) Supporting Document(s ) ID Date Data Source [id number] 09/22/2019 12:00:00 AM EST [facility] ([facility], ) Name Value Range Interpretation Code Description Data Supporting Source(s) Document(s ) PTH, Intact 14 pg/mL Below low normal [facility] ([facility], ) ID Date Data Source [id number] 09/22/2019 12:00:00 AM EST [facility] ([facility], ) Name Value Range Interpretation Code Description Data Supporting Source(s) Document(s ) Ferritin, 329 ng/mL Normal (applies to MEDGEN (St Serum non-numeric Juan C's results) Medical, ) ID Date Data Source [id number] 09/22/2019 12:00:00 AM EST [facility] ([facility], ) Name Value Range Interpretation Description Data Sup porting Code Source(s) Document(s ) Deprecated 4.8 mg/dL Above high normal MEDGEN (St Phosphorus Juan C's [Mass/time] in Medical, ) 24 hour Urine ID Date Data Source [id number] 09/22/2019 12:00:00 AM EST [facility] ([facility], ) Name Value Range Interpretation Code Description Data Lisa rce(s) Supporting Document(s ) RAGINI Normal (applies to MEDGEN (St Interpreta non-numeric results) Juan C's M edical, tion:U PC) ID Date Data Source [id number] 09/22/2019 12:00:00 AM EST MED[facility] (St [facility], ) Name Value Range Interpretation Description Data Sup porting Code Source(s) Document(s ) Vitamin D, 36.2 Normal (applies to MEDGEN (St 25-Hydroxy ng/mL non-numeric Juan C's results) [facility], ) ID Date Data Source [id number] 09/22/2019 12:00:00 AM EST [facility] ([facility], ) Name Value Range Interpretation Code Description Data Supporting Source(s) Document(s ) Albumin, 693.2 Normal (applies to MEDGEN (St Urine ug/mL non-numeric Juan C's results) [facility], ) Alb/Creat 394.1 mg/g Above high normal MEDGEN (St Ratio creat [facility], ) ID Date Data Source [id number] 09/22/2019 12:00:00 AM EST MEDGEN (St [facility], ) Name Value Range Interpretation Description Data Sup porting Code Source(s) Document(s ) Free [place] 476.00 Above high normal MEDGEN (St Lt mg/L Juan C's Chains,[facility], ) Free Lambda 44.50 mg/L Above high normal MEDGEN (S t Lt Juan C's Chains,[facility], ) [place] 10.70 Above high normal MEDGEN (St a Ratio,U [facility], ) ID Date Data Source [id number] 09/22/2019 12:00:00 AM EST [facility] ([facility], ) Name Value Range Interpretation Description Data Sup porting Code Source(s) Document(s ) Free [place] 38.9 mg/L Above high normal MEDGEN (St Lt Chains,S [facility], ) Free Lambda 133.0 mg/L Above high normal MEDGEN (S t Lt Chains,S [facility]) [place]d 0.29 Normal (applies to MEDGEN (S t a Ratio,S non-numeric Juan C's results) [facility]) ID Date Data Source [id number] 09/22/2019 12:00:00 AM EST MEDGEN ([facility] [place]) Name Value Range Interpretation Code Description Data Supporting Source(s) Document(s ) Creatinine 175.9 Normal (applies to MEDGEN (St , Urine mg/dL non-numeric Juan C's results) [facility]) Protein/Cr 833 mg/g Above high normal MEDGEN (St eat Ratio creat [facility]) ID Date Data Source [id number] 09/22/2019 12:00:00 AM EST MEDGEN ([facility] [place]) Name Value Range Interpretation Description Data Sup porting Code Source(s) Document(s ) Immunofixation Normal (applies MEDGEN (S t Result, Serum to non-numeric [facility] results) [facility]) Immunoglobulin A, 25 mg/dL Below low normal MEDGE N (St Qn, Serum [facility]) Immunoglobulin G, 3973 Above high normal MEDG EN (St Qn, Serum mg/dL [facility]) Immunoglobulin M, 13 mg/dL Below low normal MEDGE N (St Qn, Serum [facility]) ID Date Data Source [id number] 09/22/2019 12:00:00 AM EST MEDGEN ([facility] [place]) Name Value Range Interpretation Description Data Sup porting Code Source(s) Document(s ) Protein,Tot 146.6 Normal (applies to MEDGEN (S t al,Urine mg/dL non-numeric Juan C's results) [facility]) Albumin, U 47.8 % Normal (applies to MEDGEN (St non-numeric Juan C's results) [facility]) Alpha-1-Nadine 3.5 % Normal (applies to MEDGEN (S t bulin, U non-numeric Juan C's results) [facility]) Alpha-2-Nadine 9.6 % Normal (applies to MEDGEN (S t bulin, U non-numeric Juan C's results) [facility]) Beta 24.4 % Normal (applies to MEDGEN (St Globulin, U non-numeric Juan C's results) [facility]) Gamma 14.8 % Normal (applies to MEDGEN (St Globulin, U non-numeric Juan C's results) Medical, PC) M-Kevyn, % 9.8 % Above high normal [facility] ([place], ) Please Normal (applies to MEDGEN (St note: non-numeric Juan C's results) Medical, PC) PDF . Normal (applies to MEDGEN (St non-numeric Juan C's results) Medical, PC) ID Date Data Source [id number] 09/22/2019 12:00:00 AM EST [facility] ([facility], ) Name Value Range Interpretation Description Data Sup porting Code Source(s) Document(s ) Protein 9.0 g/dL Above high normal MEDGEN (St [Mass/volume] in Juan C's Serum or Plasma Medical, ) Microalbumin 4.0 g/dL Normal (applies MEDGEN (St [Mass/time] in to non-numeric Juan C's Urine collected results) Medical, for unspecified PC) duration Ghkdy-0-Jzfidira 0.2 g/dL Normal (applies MEDGEN (St to non-numeric Juan C's results) Medical, PC) Inepn-8-Cjbpwbed 0.8 g/dL Normal (applies MEDGEN (St to [...] M-Kevyn 2.9 g/dL Above high normal [facility] ([place], ) A/G Ratio 0.8 Normal (applies MEDGEN (St to non-numeric Juan C's results) Medical, PC) Please note: Normal (applies MEDGEN (St to non-numeric Juan C's results) Medical, ) PDF . Normal (applies MEDGEN (St to non-numeric Juan C's results) Medical, ) ID Date Data Source [id number] 09/22/2019 12:00:00 AM EST MEDGEN (St Julienne [...] (applies MEDGEN (St [Mass/volume] in to non-numeric Jua Nc's Urine collected [...] results) Medical, PC) ID Date Data Source [id number] 09/22/2019 12:00:00 AM EST MEDGEN (St Julienne [...] in to non-numeric Juan C's Urine results) [facility], ) sediment by Automated count Cast Type Granular Abnormal (applies MEDGEN (St casts to non-numeric Juan C's results) [facility], ) Crystals Present Abnormal (applies MEDGEN (St [#/area] in to non-numeric Juan C's Body fluid by results) [facility], ) Light microscopy Crystal Type Calcium Normal (applies MEDGEN (St Oxalate to non-numeric Juan C's results) [facility], ) Mucus Threads Present Normal (applies MEDGEN (St to non-numeric Juan C's results) [facility], ) Bacteria Few Normal (applies MEDGEN (St [Presence] in to non-numeric Juan C's Prostatic results) [facility], ) fluid by Light microscopy ID Date Data Source [id number] 09/22/2019 12:00:00 AM EST [facility] ([facility], ) Name Value Range Interpretation Description Data Sup porting Code Source(s) Document(s ) Leukocytes 9.5 Normal (applies MEDGEN (St [#/volume] in x10E3/uL to non-numeric Juan C's Blood by results) [facility], ) Automated count Erythrocytes 3.28 Below low normal MEDGEN (St [#/volume] in x10E6/uL Juan C's Blood by [facility], ) Automated count Hemoglobin 10.9 Below low normal MEDGEN (St [Mass/volume] in g/dL Juan C's Blood [facility], ) Hematocrit 32.1 % Below low normal MEDGEN (St [Volume Juan C's Fraction] of [facility], ) Blood by Automated count MCV 98 fL Above high normal MEDGEN ([facility], ) MCH 33.2 pg Above high normal MEDGEN ([facility], ) MCHC 34.0 Normal (applies MEDGEN (St g/dL to non-numeric Juan C's results) [facility], ) RDW 17.3 % Above high normal MEDGEN ([facility], ) Neutrophils [#] 53 % Normal (applies MEDGEN ( St in Body fluid by to non-numeric Juan C's Manual count results) [facility], ) Platelets 240 Normal (applies MEDGEN (St [#/area] in x10E3/uL to non-numeric Juan C's Blood by results) [facility]) Microscopy high power field Lymphs 19 % Normal (applies MEDGEN (St to non-numeric Juanc 's results) [facility], ) Monocytes 15 % Normal (applies MEDGEN (St [#/volume] in to non-numeric Juan C's Cord blood results) [facility], ) Eos 11 % Normal (applies MEDGEN (St to non-numeric Juan C's results) [facility], ) Basos 0 % Normal (applies MEDGEN (St to non-numeric Juan C's results) [facility], ) Neutrophils 5.1 Normal (applies MEDGEN (St (Absolute) x10E3/uL to non-numeric Juan C's results) [facility], ) Lymphs 1.8 Normal (applies MEDGEN (St (Absolute) x10E3/uL to non-numeric Juan C's results) [facility], ) Monocytes(Absolu 1.5 Above high normal MEDGE N (St te) x10E3/uL [facility], ) Eos (Absolute) 1.0 Above high normal MEDGEN (St x10E3/uL [facility], ) Baso (Absolute) 0.0 Normal (applies MEDGEN ( St x10E3/uL to non-numeric Juan C's results) [facility], ) Immature 2 % Normal (applies MEDGEN (St Granulocytes to non-numeric Juan C's results) [facility], ) Immature Grans 0.2 Above high normal MEDGEN (St (Abs) x10E3/uL [facility], ) Hematology Note: Normal (applies MEDGEN (St Comments: to non-numeric Juan C's results) [facility], ) ID Date Data Source [id number] 09/22/2019 12:00:00 AM EST [facility]GEN ([facility], ) Name Value Range Interpretation Code Description Data Lisa rce(s) Supporting Document(s ) ID Date Data Source [id number] 09/22/2019 12:00:00 AM EST MEDGEN ([facility] hn's [facility], ) Name Value Range Interpretation Code Description Data Supporting Source(s) Document(s ) PTH, Intact 14 pg/mL Below low normal [facility] ([place], ) ID Date Data Source [id number] 09/22/2019 12:00:00 AM EST MEDGEN ([facility]s [facility], ) Name Value Range Interpretation Code Description Data Supporting Source(s) Document(s ) Ferritin, 329 ng/mL Normal (applies to MEDGEN (St Serum non-numeric Juan C's results) [facility], ) ID Date Data Source [id number] 09/22/2019 12:00:00 AM EST MEDGEN ([facility] 's [facility], ) Name Value Range Interpretation Description Data Sup porting Code Source(s) Document(s ) Deprecated 4.8 mg/dL Above high normal MEDGEN (St Phosphorus Juan C's [Mass/time] in [facility], ) 24 hour Urine ID Date Data Source [id number] 09/22/2019 12:00:00 AM EST MEDGEN ([facility], ) Name Value Range Interpretation Code Description Data Lisa rce(s) Supporting Document(s ) ID Date Data Source [id number] 09/22/2019 12:00:00 AM EST MEDGEN ([facility] 's [facility], ) Name Value Range Interpretation Description Data Sup porting Code Source(s) Document(s ) Vitamin D, 36.2 Normal (applies to MEDGEN (St 25-Hydroxy ng/mL non-numeric Juan C's results) [facility], ) ID Date Data Source [id number] 09/22/2019 12:00:00 AM EST MEDGEN ([facility] 's [facility], ) Name Value Range Interpretation Code Description Data Supporting Source(s) Document(s ) Albumin, 693.2 Normal (applies to MEDGEN (St Urine ug/mL non-numeric Juan C's results) [facility], ) Alb/Creat 394.1 mg/g Above high normal MEDGEN (St Ratio creat [facility], ) ID Date Data Source [id number] 09/22/2019 12:00:00 AM EST MEDGEN ([facility] 's [facility], ) Name Value Range Interpretation Description Data Sup porting Code Source(s) Document(s ) Free [place] 476.00 Above high normal MEDGEN (St Lt mg/L Juan C's Chains,[facility], ) Free Lambda 44.50 mg/L Above high normal MEDGEN (S t Lt Juan C's Chains,[facility], ) [place] 10.70 Above high normal MEDGEN (St a Ratio,U [facility], ) ID Date Data Source [id number] 09/22/2019 12:00:00 AM EST MEDGEN ([facility], ) Name Value Range Interpretation Description Data Sup porting Code Source(s) Document(s ) Free [place] 38.9 mg/L Above high normal MEDGEN (St Lt Chains,S [facility]) Free Lambda 133.0 mg/L Above high normal MEDGEN (S t Lt Chains,S [facility]) [place] 0.29 Normal (applies to MEDGEN (S t a Ratio,S non-numeric [facility] results) [facility]) ID Date Data Source [id number] 09/22/2019 12:00:00 AM EST [facility] ([facility] ) Name Value Range Interpretation Code Description Data Supporting Source(s) Document(s ) Creatinine 175.9 Normal (applies to MEDGEN (St , Urine mg/dL non-numeric Juan C's results) [facility]) Protein/Cr 833 mg/g Above high normal MEDGEN (St eat Ratio creat [facility]) ID Date Data Source [id number] 09/22/2019 12:00:00 AM EST MEDGEN ([facility] [place]) Name Value Range Interpretation Description Data Sup porting Code Source(s) Document(s ) Immunoglobulin A, 25 mg/dL Below low normal MEDGE N (St Qn, Serum [facility]) Immunoglobulin G, 3973 Above high normal MEDG EN (St Qn, Serum mg/dL [facility]) Immunoglobulin M, 13 mg/dL Below low normal MEDGE N (St Qn, Serum [facility]) ID Date Data Source [id number] 09/22/2019 12:00:00 AM EST MEDGEN ([facility] [place]) Name Value Range Interpretation Description Data Sup porting Code Source(s) Document(s ) Iron 297 ug/dL Normal (applies to MEDGEN (St Bind.Cap.(TIBC non-numeric Juan C's ) results) [facility]) UIBC 222 ug/dL Normal (applies to MEDGEN (St non-numeric Juan C's results) [facility]) Iron 75 ug/dL Normal (applies to MEDGEN (St [Mass/volume] non-numeric Juan C's in Serum or results) [facility]) Plasma Iron 25 % Normal (applies to MEDGEN (St saturation non-numeric Juan C's [Mass results) [facility], ) Fraction] in Serum or Plasma ID Date Data Source [id number] 09/22/2019 12:00:00 AM EST MEDGEN ([facility] diana's [facility], ) Name Value Range Interpretation Code [...] (St Globulin, non-numeric Juan C's U results) [facility], ) M-Kevyn, % 9.8 % Above high normal [facility] ([facility], ) PDF . Normal (applies to MEDGEN (St non-numeric Juan C's results) Medical, ) ID Date Data Source [id number] 09/22/2019 12:00:00 AM EST MEDGEN ([facility] d[facility]'s [facility], ) Name Value Range Interpretation Description Data Sup porting Code Source(s) Document(s ) Protein 9.0 g/dL Above high normal MEDGEN (St [Mass/volume] in Juan C's Serum or Plasma Medical, ) Blvim-4-Ucsbteaz 0.2 g/dL Normal (applies MEDGEN (St to non-numeric Juan C's results) Medical, ) Microalbumin 4.0 g/dL Normal (applies MEDGEN (St [Mass/time] in to non-numeric Juan C's Urine collected results) [facility], for unspecified PC) duration Skvfn-9-Qnzacuhm 0.8 g/dL Normal (applies MEDGEN (St to non-numeric Juan C's results) Medical, ) Gamma globulin 3.2 g/dL Above high normal MEDGEN (St [Mass/volume] by Juan C's Electrophoresis in Medical, Urine collected PC) for unspecified duration Beta globulin 0.8 g/dL Normal (applies MEDGEN (St [Mass/volume] in to non-numeric Juan C's Urine by results) Medical, Electrophoresis PC) M-Kevyn 2.9 g/dL Above high normal [facility] ([facility], ) Globulin, Total 5.0 g/dL Above high normal [facility] ([facility], ) A/G Ratio 0.8 Normal (applies MEDGEN (St to non-numeric Juan C's results) Medical, ) PDF . Normal (applies MEDGEN (St to non-numeric Juan C's results) Medical, ) ID Date Data Source [id number] 09/22/2019 12:00:00 AM EST MEDGEN ([facility], ) Name Value Range Interpretation Description [...] (S t to non-numeric Juan C's results) [facility], ) Microscopic See below: Normal (applies MEDGEN (St Examination to non-numeric Juan C's results) [facility], ) ID Date Data Source [id number] 09/22/2019 12:00:00 AM EST MEDGEN ([facility], ) Name Value Range Interpretation Description Data Sup porting Code Source(s) Document(s ) WBC 0-5 Normal (applies MEDGEN (St to non-numeric Juan C's results) [facility], ) RBC 0-2 Normal (applies MEDGEN (St to non-numeric Juan C's results) [facility], ) Casts Present Abnormal (applies MEDGEN (St [#/area] in to non-numeric Juan C's Urine results) [facility], ) sediment by Automated count Epithelial None seen Normal (applies MEDGEN (St Cells (non to non-numeric Juan C's renal) results) [facility], ) Cast Type Granular Abnormal (applies MEDGEN (St casts to non-numeric Juan C's results) [facility], ) Crystals Present Abnormal (applies MEDGEN (St [#/area] in to non-numeric Juan C's Body fluid by results) [facility], ) Light microscopy Crystal Type Calcium Normal (applies MEDGEN (St Oxalate to non-numeric Juan C's results) [facility], ) Mucus Threads Present Normal (applies MEDGEN (St to non-numeric Juan C's results) [facility], ) Bacteria Few Normal (applies MEDGEN (St [Presence] in to non-numeric Juan C's Prostatic results) [facility], ) fluid by Light microscopy ID Date Data Source [id number] 09/22/2019 12:00:00 AM EST [facility], ) Name Value Range Interpretation Description Data Sup porting Code Source(s) Document(s ) Leukocytes 9.5 Normal (applies MEDGEN (St [#/volume] in x10E3/uL to non-numeric Juan C's Blood by results) [facility], ) Automated count Hemoglobin 10.9 Below low normal MEDGEN (St [Mass/volume] in g/dL Juan C's Blood [facility], ) Erythrocytes 3.28 Below low normal MEDGEN (St [#/volume] in x10E6/uL Juan C's Blood by [facility], ) Automated count Hematocrit 32.1 % Below low normal MEDGEN (St [Volume Juan C's Fraction] of [facility]) Blood by Automated count MCV 98 fL Above high normal [facility] ([facility]) MCH 33.2 pg Above high normal [facility] ([facility]) RDW 17.3 % Above high normal MEDGEN ([facility]) MCHC 34.0 Normal (applies MEDGEN (St g/dL to non-numeric Juan C's results) [facility]) Platelets 240 Normal (applies MEDGEN (St [#/area] in x10E3/uL to non-numeric Juan C's Blood by results) [facility]) Microscopy high power field Neutrophils [#] 53 % Normal (applies MEDGEN ( St in Body fluid by to non-numeric Juan C's Manual count results) [facility]) Lymphs 19 % Normal (applies MEDGEN (St to non-numeric Juan C's results) [facility]) Monocytes 15 % Normal (applies MEDGEN (St [#/volume] in to non-numeric Juan C's Cord blood results) [facility]) Basos 0 % Normal (applies MEDGEN (St to non-numeric Juan C's results) [facility]) Eos 11 % Normal (applies MEDGEN (St to non-numeric Juan C's results) [facility]) Neutrophils 5.1 Normal (applies MEDGEN (St (Absolute) x10E3/uL to non-numeric Juan C's results) [facility]) Lymphs 1.8 Normal (applies MEDGEN (St (Absolute) x10E3/uL to non-numeric Juan C's results) [facility]) Monocytes(Absolu 1.5 Above high normal MEDGE N (St te) x10E3/uL [facility]) Eos (Absolute) 1.0 Above high normal MEDGEN (St x10E3/uL [facility]) Baso (Absolute) 0.0 Normal (applies MEDGEN ( St x10E3/uL to non-numeric Juan C's results) [facility]) Immature 2 % Normal (applies MEDGEN (St Granulocytes to non-numeric Juan C's results) [facility]) Immature Grans 0.2 Above high normal MEDGEN (St (Abs) x10E3/uL [facility]) Hematology Note: Normal (applies MEDGEN (St Comments: to non-numeric Juan C's results) [facility] ) ID Date Data Source [id number] 09/22/2019 12:00:00 AM EST [facility] ([facility], ) Name Value Range Interpretation Code Description Data Lisa rce(s) Supporting Document(s ) ID Date Data Source [id number] 09/22/2019 12:00:00 AM EST [facility] ([facility], ) Name Value Range Interpretation Code Description Data Supporting Source(s) Document(s ) PTH, Intact 14 pg/mL Below low normal [facility] ([facility]) ID Date Data Source [id number] 09/22/2019 12:00:00 AM EST [facility] ([facility], ) Name Value Range Interpretation Code Description Data Supporting Source(s) Document(s ) Ferritin, 329 ng/mL Normal (applies to MEDGEN (St Serum non-numeric Juan C's results) [facility], ) ID Date Data Source [id number] 09/22/2019 12:00:00 AM EST [facility] ([facility], ) Name Value Range Interpretation Description Data Sup porting Code Source(s) Document(s ) Deprecated 4.8 mg/dL Above high normal MEDGEN (St Phosphorus Juan C's [Mass/time] in Medical, ) 24 hour Urine ID Date Data Source [id number] 09/22/2019 12:00:00 AM EST [facility] ([facility], ) Name Value Range Interpretation Code Description Data Lisa rce(s) Supporting Document(s ) RAGINI Normal (applies to MEDGEN (St Interpreta non-numeric results) [facility], tion:U ) ID Date Data Source [id number] 09/22/2019 12:00:00 AM EST [facility] ([facility], ) Name Value Range Interpretation Description Data Sup porting Code Source(s) Document(s ) Vitamin D, 36.2 Normal (applies to MEDGEN (St 25-Hydroxy ng/mL non-numeric Juan [facility]'s results) Medical, ) ID Date Data Source [id number] 09/22/2019 12:00:00 AM EST [facility] ([facility], ) Name Value Range Interpretation Code Description Data Supporting Source(s) Document(s ) Albumin, 693.2 Normal (applies to MEDGEN (St Urine ug/mL non-numeric Juan [facility]'s results) [facility], ) Alb/Creat 394.1 mg/g Above high normal MEDGEN (St Ratio creat [facility], ) ID Date Data Source [id number] 09/22/2019 12:00:00 AM EST [facility] ([facility], ) Name Value Range Interpretation Description Data Sup porting Code Source(s) Document(s ) Free [place] 476.00 Above high normal MEDGEN (St Lt mg/L Juan C's Chains,[facility], ) Free Lambda 44.50 mg/L Above high normal MEDGEN (S t Lt Juan C's Chains,Ur [facility], ) [place]d 10.70 Above high normal MEDGEN (St a Ratio,U [facility], ) ID Date Data Source [id number] 09/22/2019 12:00:00 AM EST [facility] ([facility], ) Name Value Range Interpretation Description Data Sup porting Code Source(s) Document(s ) Free [place] 38.9 mg/L Above high normal MEDGEN (St Lt Chains,S Juan C's [facility], ) Free Lambda 133.0 mg/L Above high normal MEDGEN (S t Lt Chains,S [facility], ) [place]d 0.29 Normal (applies to MEDGEN (S t a Ratio,S non-numeric Juan C's results) [facility], ) ID Date Data Source [id number] 09/22/2019 12:00:00 AM EST [facility] ([facility], ) Name Value Range Interpretation Code Description Data Supporting Source(s) Document(s ) Creatinine 175.9 Normal (applies to MEDGEN (St , Urine mg/dL non-numeric Juan C's results) [facility], ) Protein/Cr 833 mg/g Above high normal MEDGEN (St eat Ratio creat [facility], ) ID Date Data Source [id number] 09/22/2019 12:00:00 AM EST [facility] ([facility], ) Name Value Range Interpretation Description Data Sup porting Code Source(s) Document(s ) Immunofixation Normal (applies MEDGEN (S t Result, Serum to non-numeric Juan C's results) [facility], ) Immunoglobulin G, 3973 Above high normal MEDG EN (St Qn, Serum mg/dL [facility]) Immunoglobulin A, 25 mg/dL Below low normal MEDGE N (St Qn, Serum Juan [facility]) Immunoglobulin M, 13 mg/dL Below low normal MEDGE N (St Qn, Serum [facility]) ID Date Data Source [id number] 09/22/2019 12:00:00 AM EST MEDGEN (St [facility]) Name Value Range Interpretation Description Data Sup porting Code Source(s) Document(s ) Iron 297 ug/dL Normal (applies to MEDGEN (St Bind.Cap.(TIBC non-numeric Juan C's ) results) [facility]) UIBC 222 ug/dL Normal (applies to MEDGEN (St non-numeric Juan C's results) [facility]) Iron 75 ug/dL Normal (applies to MEDGEN (St [Mass/volume] non-numeric Juan C's in Serum or results) [facility]) Plasma Iron 25 % Normal (applies to MEDGEN (St saturation non-numeric Juan C's [Mass results) [facility]) Fraction] in Serum or Plasma ID Date Data Source [id number] 09/22/2019 12:00:00 AM EST [facility] ([facility], ) Name Value Range Interpretation Description Data Sup porting Code Source(s) Document(s ) Protein,Tot 146.6 Normal (applies to MEDGEN (S t al,Urine mg/dL non-numeric Juan C's results) [facility], ) Albumin, U 47.8 % Normal (applies to MEDGEN (St non-numeric Juan C's results) [facility], ) Alpha-2-Nadine 9.6 % Normal (applies to MEDGEN (S t bulin, U non-numeric Juan C's results) [facility]) Alpha-1-Nadine 3.5 % Normal (applies to MEDGEN (S t bulin, U non-numeric Juan C's results) [facility]) Beta 24.4 % Normal (applies to MEDGEN (St Globulin, U non-numeric Juan C's results) [facility]) Gamma 14.8 % Normal (applies to MEDGEN (St Globulin, U non-numeric Juan C's results) [facility]) M-Kevyn, % 9.8 % Above high normal [facility] ([facility], ) Please Normal (applies to MEDGEN (St note: non-numeric Juan C's results) Medical, ) PDF . Normal (applies to MEDGEN (St non-numeric Juan C's results) Medical, ) ID Date Data Source [id number] 09/22/2019 12:00:00 AM EST [facility] ([facility], ) Name Value Range Interpretation Description Data Sup porting Code Source(s) Document(s ) Protein 9.0 g/dL Above high normal MEDGEN (St [Mass/volume] in Juan C's Serum or Plasma Medical, ) Microalbumin 4.0 g/dL Normal (applies MEDGEN (St [Mass/time] in to non-numeric Juan C's Urine collected results) Medical, for unspecified PC) duration Bcxwv-3-Yfnbqdaj 0.2 g/dL Normal (applies MEDGEN (St to non-numeric Juan C's results) Medical, ) Qfxuz-2-Hjknnnrp 0.8 g/dL Normal (applies MEDGEN (St to non-numeric Juan C's results) [facility], PC) Beta globulin 0.8 g/dL Normal (applies MEDGEN (St [Mass/volume] in to non-numeric Juan C's Urine by results) Medical, Electrophoresis PC) Gamma globulin 3.2 g/dL Above high normal MEDGEN (St [Mass/volume] by Juan C's Electrophoresis in Medical, Urine collected PC) for unspecified duration M-Kevyn 2.9 g/dL Above high normal [facility] ([facility], ) Globulin, Total 5.0 g/dL Above high normal [facility] ([facility], ) A/G Ratio 0.8 Normal (applies MEDGEN (St to non-numeric Juan C's results) Medical, ) Please note: Normal (applies MEDGEN (St to non-numeric Juan C's results) Medical, ) PDF . Normal (applies MEDGEN (St to non-numeric Juan C's results) Medical, ) ID Date Data Source [id number] 09/22/2019 12:00:00 AM EST MEDGEN (St [facility] [...] to non-numeric Juan C's Urine collected results) [facility], for unspecified PC) duration Protein Abnormal [...] results) Medical, ) ID Date Data Source [id number] 09/22/2019 12:00:00 AM EST MEDGEN (St [facility] [...] (St Oxalate to non-numeric Juan C's results) [facility], ) Mucus Threads Present Normal (applies MEDGEN (St to non-numeric Juan C's results) [facility], ) Bacteria Few Normal (applies MEDGEN (St [Presence] in to non-numeric Juan C's Prostatic results) [facility], ) fluid by Light microscopy ID Date Data Source [id number] 09/22/2019 12:00:00 AM EST [facility] ([facility], ) Name Value Range Interpretation Description Data Sup porting Code Source(s) Document(s ) Leukocytes 9.5 Normal (applies MEDGEN (St [#/volume] in x10E3/uL to non-numeric Juan C's Blood by results) [facility], ) Automated count Erythrocytes 3.28 Below low normal MEDGEN (St [#/volume] in x10E6/uL Juan C's Blood by [facility], ) Automated count Hemoglobin 10.9 Below low normal MEDGEN (St [Mass/volume] in g/dL Juan C's Blood [facility], ) Hematocrit 32.1 % Below low normal MEDGEN (St [Volume Juan C's Fraction] of [facility], ) Blood by Automated count MCV 98 fL Above high normal MEDGEN ([facility], ) MCH 33.2 pg Above high normal MEDGEN ([facility], ) MCHC 34.0 Normal (applies MEDGEN (St g/dL to non-numeric Juan C's results) [facility], ) RDW 17.3 % Above high normal MEDGEN ([facility], ) Platelets 240 Normal (applies MEDGEN (St [#/area] in x10E3/uL to non-numeric Juan C's Blood by results) [facility], ) Microscopy high power field Neutrophils [#] 53 % Normal (applies MEDGEN ( St in Body fluid by to non-numeric Juan C's Manual count results) [facility], ) Lymphs 19 % Normal (applies MEDGEN (St to non-numeric Juan C's results) [facility], ) Monocytes 15 % Normal (applies MEDGEN (St [#/volume] in to non-numeric Juan C's Cord blood results) [facility], ) Eos 11 % Normal (applies MEDGEN (St to non-numeric Juan C's results) Medical, ) Basos 0 % Normal (applies MEDGEN (St to non-numeric Juan C's results) [facility], ) Neutrophils 5.1 Normal (applies MEDGEN (St (Absolute) x10E3/uL to non-numeric Juan C's results) Medical, ) Lymphs 1.8 Normal (applies MEDGEN (St (Absolute) x10E3/uL to non-numeric Juan C's results) Medical, ) Monocytes(Absolu 1.5 Above high normal MEDGE N (St te) x10E3/uL [facility], ) Eos (Absolute) 1.0 Above high normal MEDGEN (St x10E3/uL [facility], ) Baso (Absolute) 0.0 Normal (applies MEDGEN ( St x10E3/uL to non-numeric Juan C's results) Medical, ) Immature 2 % Normal (applies MEDGEN (St Granulocytes to non-numeric Juan C's results) [facility], ) Immature Grans 0.2 Above high normal MEDGEN (St (Abs) x10E3/uL Juan C's [facility], ) Hematology Note: Normal (applies MEDGEN (St Comments: to non-numeric Juan C's results) [facility], ) ID Date Data Source [id number] 09/22/2019 12:00:00 AM EST [facility] ([facility], ) Name Value Range Interpretation Code Description Data Lisa rce(s) Supporting Document(s ) ID Date Data Source [id number] 09/22/2019 12:00:00 AM EST [facility] ([facility], ) Name Value Range Interpretation Code Description Data Supporting Source(s) Document(s ) PTH, Intact 14 pg/mL Below low normal [facility] ([facility], ) ID Date Data Source [id number] 09/22/2019 12:00:00 AM EST [facility] ([facility], ) Name Value Range Interpretation Code Description Data Supporting Source(s) Document(s ) Ferritin, 329 ng/mL Normal (applies to MEDGEN (St Serum non-numeric Juan C's results) [facility], ) ID Date Data Source [id number] 09/22/2019 12:00:00 AM EST [facility]GEN ([facility], ) Name Value Range Interpretation Description Data Sup porting Code Source(s) Document(s ) Deprecated 4.8 mg/dL Above high normal MEDGEN (St Phosphorus Juan C's [Mass/time] in [facility], ) 24 hour Urine ID Date Data Source [id number] 09/22/2019 12:00:00 AM EST MEDGEN (St [facility], ) Name Value Range Interpretation Code Description Data Lisa rce(s) Supporting Document(s ) RAGINI Normal (applies to MEDGEN (St Interpreta non-numeric results) Juan [facility]'s M edical, tion:U ) ID Date Data Source [id number] 09/22/2019 12:00:00 AM EST MEDGEN ([facility], ) Name Value Range Interpretation Description Data Sup porting Code Source(s) Document(s ) Vitamin D, 36.2 Normal (applies to MEDGEN (St 25-Hydroxy ng/mL non-numeric Juan C's results) [facility], ) ID Date Data Source [id number] 09/22/2019 12:00:00 AM EST MEDGEN (St [facility], ) Name Value Range Interpretation Code Description Data Supporting Source(s) Document(s ) Albumin, 693.2 Normal (applies to MEDGEN (St Urine ug/mL non-numeric Juan C's results) [facility], ) Alb/Creat 394.1 mg/g Above high normal MEDGEN (St Ratio creat [facility], ) ID Date Data Source [id number] 09/22/2019 12:00:00 AM EST MEDGEN (St [facility], ) Name Value Range Interpretation Description Data Sup porting Code Source(s) Document(s ) Free [place] 476.00 Above high normal MEDGEN (St Lt mg/L Juan C's Chains,Ur [facility], ) Free Lambda 44.50 mg/L Above high normal MEDGEN (S t Lt Juan C's Chains,Ur [facility], ) [place] 10.70 Above high normal MEDGEN (St a Ratio,U [facility], ) ID Date Data Source [id number] 09/22/2019 12:00:00 AM EST MEDGEN ([facility], ) Name Value Range Interpretation Description Data Sup porting Code Source(s) Document(s ) Free [place] 38.9 mg/L Above high normal MEDGEN (St Lt Chains,S [facility], ) Free Lambda 133.0 mg/L Above high normal MEDGEN (S t Lt Chains,S [facility]) [place] 0.29 Normal (applies to MEDGEN (S t a Ratio,S non-numeric Juan C's results) [facility]) ID Date Data Source [id number] 09/22/2019 12:00:00 AM EST MEDGEN (St [facility]) Name Value Range Interpretation Code Description Data Supporting Source(s) Document(s ) Creatinine 175.9 Normal (applies to MEDGEN (St , Urine mg/dL non-numeric Juan C's results) [facility]) Protein/Cr 833 mg/g Above high normal MEDGEN (St eat Ratio creat [facility]) ID Date Data Source [id number] 09/22/2019 12:00:00 AM EST MEDGEN ([facility] [place]) Name Value Range Interpretation Description Data Sup porting Code Source(s) Document(s ) Immunofixation Normal (applies MEDGEN (S t Result, Serum to non-numeric Juan C's results) [facility]) Immunoglobulin G, 3973 Above high normal MEDG EN (St Qn, Serum mg/dL [facility]) Immunoglobulin A, 25 mg/dL Below low normal MEDGE N (St Qn, Serum [facility]) Immunoglobulin M, 13 mg/dL Below low normal MEDGE N (St Qn, Serum [facility]) ID Date Data Source [id number] 09/22/2019 12:00:00 AM EST [facility] ([facility], ) Name Value Range Interpretation Description Data Sup porting Code Source(s) Document(s ) Iron 297 ug/dL Normal (applies to MEDGEN (St Bind.Cap.(TIBC non-numeric Juan C's ) results) [facility]) UIBC 222 ug/dL Normal (applies to MEDGEN (St non-numeric Juan C's results) [facility]) Iron 75 ug/dL Normal (applies to MEDGEN (St [Mass/volume] non-numeric Juan C's in Serum or results) [facility]) Plasma Iron 25 % Normal (applies to MEDGEN (St saturation non-numeric Juan C's [Mass results) [facility] ) Fraction] in Serum or Plasma ID Date Data Source [id number] 09/22/2019 12:00:00 AM EST MEDGEN ([facility], ) Name Value Range Interpretation Description [...] results) Medical, ) ID Date Data Source [id number] 09/22/2019 12:00:00 AM EST MEDGEN ([facility], ) Name Value Range Interpretation Description Data Sup porting Code Source(s) Document(s ) Protein 9.0 g/dL Above high normal MEDGEN (St [Mass/volume] in Juan C's Serum or Plasma Medical, ) Microalbumin 4.0 g/dL Normal (applies MEDGEN (St [Mass/time] in to non-numeric Juan C's Urine collected results) Medical, for unspecified PC) duration Hbkuf-9-Gklxgtll 0.2 g/dL Normal (applies MEDGEN (St to non-numeric Juan C's results) Medical, ) Pihbw-9-Rdzvbqif 0.8 g/dL Normal (applies MEDGEN (St to non-numeric Juan C's results) Medical, ) Beta globulin 0.8 g/dL Normal (applies MEDGEN (St [Mass/volume] in to non-numeric Juan C's Urine by results) [facility], Electrophoresis [facility]) Gamma globulin 3.2 g/dL Above high normal MEDGEN (St [Mass/volume] by Juan C's Electrophoresis in Medical, Urine collected PC) for unspecified duration M-Kevyn 2.9 g/dL Above high normal [facility] ([facility]) Globulin, Total 5.0 g/dL Above high normal [facility] ([facility]) A/G Ratio 0.8 Normal (applies MEDGEN (St to non-numeric Juan C's results) [facility], PC) Please note: Normal (applies MEDGEN (St to non-numeric Juan C's results) [facility], [facility]) PDF . Normal (applies MEDGEN (St to non-numeric Juan C's results) Medical, ) ID Date Data Source [id number] 09/22/2019 12:00:00 AM EST MEDGEN ([facility], ) Name Value Range Interpretation Description [...] (S t to non-numeric Juan C's results) [facility], ) Microscopic See below: Normal (applies MEDGEN (St Examination to non-numeric Juan C's results) [facility], ) ID Date Data Source [id number] 09/22/2019 12:00:00 AM EST MEDGEN ([facility], ) Name Value Range Interpretation Description Data Sup porting Code Source(s) Document(s ) WBC 0-5 Normal (applies MEDGEN (St to non-numeric Juan C's results) [facility], ) RBC 0-2 Normal (applies MEDGEN (St to non-numeric Juan C's results) [facility], ) Epithelial None seen Normal (applies MEDGEN (St Cells (non to non-numeric Juan C's renal) results) [facility], ) Casts Present Abnormal (applies MEDGEN (St [#/area] in to non-numeric Juan C's Urine results) Medical, ) sediment by Automated count Cast Type Granular Abnormal (applies MEDGEN (St casts to non-numeric Juan C's results) [facility], ) Crystals Present Abnormal (applies MEDGEN (St [#/area] in to non-numeric Juan C's Body fluid by results) [facility], ) Light microscopy Crystal Type Calcium Normal (applies MEDGEN (St Oxalate to non-numeric Juan C's results) [facility], ) Mucus Threads Present Normal (applies MEDGEN (St to non-numeric Juan C's results) [facility], ) Bacteria Few Normal (applies MEDGEN (St [Presence] in to non-numeric Juan C's Prostatic results) Medical, ) fluid by Light microscopy ID Date Data Source [id number] 09/22/2019 12:00:00 AM EST [facility]GEN ([facility], ) Name Value Range Interpretation Description Data Sup porting Code Source(s) Document(s ) Leukocytes 9.5 Normal (applies MEDGEN (St [#/volume] in x10E3/uL to non-numeric Juan C's Blood by results) Medical, ) Automated count Erythrocytes 3.28 Below low normal MEDGEN (St [#/volume] in x10E6/uL Juan C's Blood by [facility], ) Automated count Hemoglobin 10.9 Below low normal MEDGEN (St [Mass/volume] in g/dL Juan C's Blood [facility], ) Hematocrit 32.1 % Below low normal MEDGEN (St [Volume Juan C's Fraction] of [facility], ) Blood by Automated count MCV 98 fL Above high normal [facility] ([facility], ) MCH 33.2 pg Above high normal MEDGEN ([facility], ) MCHC 34.0 Normal (applies MEDGEN (St g/dL to non-numeric Juan C's results) [facility]) RDW 17.3 % Above high normal MEDGEN ([facility], ) Platelets 240 Normal (applies MEDGEN (St [#/area] in x10E3/uL to non-numeric Juan C's Blood by results) [facility]) Microscopy high power field Neutrophils [#] 53 % Normal (applies MEDGEN ( St in Body fluid by to non-numeric Juan C's Manual count results) [facility], ) Lymphs 19 % Normal (applies MEDGEN (St to non-numeric Juan C's results) [facility]) Monocytes 15 % Normal (applies MEDGEN (St [#/volume] in to non-numeric Juan C's Cord blood results) [facility]) Eos 11 % Normal (applies MEDGEN (St to non-numeric Juan C's results) [facility]) Basos 0 % Normal (applies MEDGEN (St to non-numeric Juan C's results) [facility]) Neutrophils 5.1 Normal (applies MEDGEN (St (Absolute) x10E3/uL to non-numeric Juan C's results) [facility]) Lymphs 1.8 Normal (applies MEDGEN (St (Absolute) x10E3/uL to non-numeric Juan C's results) [facility]) Monocytes(Absolu 1.5 Above high normal MEDGE N (St te) x10E3/uL Juan C's [facility]) Eos (Absolute) 1.0 Above high normal MEDGEN (St x10E3/uL Juan C's [facility], ) Baso (Absolute) 0.0 Normal (applies MEDGEN ( St x10E3/uL to non-numeric Juan C's results) [facility], ) Immature 2 % Normal (applies MEDGEN (St Granulocytes to non-numeric Juan C's results) Medical, PC) Immature Grans 0.2 Above high normal MEDGEN (St (Abs) x10E3/uL Juan C's [facility], ) Hematology Note: Normal (applies MEDGEN (St Comments: to non-numeric Juan C's results) Medical, ) ID Date Data Source [id number] 09/22/2019 12:00:00 AM EST MEDGEN ([facility]'s Medical, ) Name Value Range Interpretation Code Description Data Lisa rce(s) Supporting Document(s ) ID Date Data Source [id number] 09/22/2019 12:00:00 AM EST [facility] ([facility]) Name Value Range Interpretation Code Description Data Supporting Source(s) Document(s ) PTH, Intact 10 pg/mL Below low normal [facility] ([facility], ) PTH, Intact 14 pg/mL Below low normal [facility] ([facility], ) ID Date Data Source [id number] 09/22/2019 12:00:00 AM EST [facility] ([facility], ) Name Value Range Interpretation Code Description Data Supporting Source(s) Document(s ) Ferritin, 349 ng/mL Normal (applies to MEDGEN (St Serum non-numeric [facility] results) Medical, ) Ferritin, 329 ng/mL Normal (applies to [facility] (St Serum non-numeric [facility] results) Medical, ) ID Date Data Source [id number] 09/22/2019 12:00:00 AM EST [facility] ([facility], ) Name Value Range Interpretation Description Data Sup porting Code Source(s) Document(s ) Deprecated 5.4 mg/dL Above high normal [facility] (St Phosphorus [facility] [Mass/time] in [facility]) 24 hour Urine Deprecated 4.8 mg/dL Above high normal [facility] (St Phosphorus [facility] [Mass/time] [facility]) 24 hour Urine ID Date Data Source [id number] 09/22/2019 12:00:00 AM EST [facility] ([facility]) Name Value Range Interpretation Code Description Data Lisa rce(s) Supporting Document(s ) ID Date Data Source [id number] 09/22/2019 12:00:00 AM EST [facility] ([facility] [...] (St 25-Hydroxy ng/mL non-numeric [facility] results) [facility], ) ID Date Data Source [id number] 09/22/2019 12:00:00 AM EST [facility] ([facility], ) Name Value Range Interpretation Code Description Data Supporting Source(s) Document(s ) Albumin, 693.2 Normal (applies to MEDGEN (St Urine ug/mL non-numeric [facility] results) Medical, ) Alb/Creat 394.1 mg/g Above high normal MEDGEN (St Ratio creat [facility], ) ID Date Data Source [id number] 09/22/2019 12:00:00 AM EST [facility] ([facility], ) Name Value Range Interpretation Description Data Sup porting Code Source(s) Document(s ) Free [place] 141.85 Above high normal MEDGEN (St Lt mg/L [facility], ) [place] 1.28 Normal (applies to MEDGEN (S t a Ratio,U non-numeric [facility] results) [facility], ) Free [place] 110.44 Above high normal MEDGEN (St Lt mg/L [facility], ) Free [place] 476.00 Above high normal MEDGEN (St Lt mg/L [facility], ) [place] 10.70 Above high normal MED[facility] (St a Ratio,U [facility], ) Free Lambda 44.50 mg/L Above high normal MED[facility] (S t Lt [facility], ) ID Date Data Source [id number] 09/22/2019 12:00:00 AM EST [facility] ([facility], ) Name Value Range Interpretation Description Data Sup porting Code Source(s) Document(s ) Free [place] 41.1 mg/L Above high normal MEDGEN (St Lt Chains,S [facility], ) Free Lambda 176.0 mg/L Above high normal MEDGEN (S t Lt Chains,S [facility], ) [place] 0.23 Below low normal MEDGEN (St a Ratio,S [facility], ) Free [place] 38.9 mg/L Above high normal MEDGEN (St Lt Chains,S [facility], ) Free Lambda 133.0 mg/L Above high normal MEDGEN (S t Lt Chains,S [facility], ) [place] 0.29 Normal (applies to MEDGEN (S t a Ratio,S non-numeric [facility] results) [facility], ) ID Date Data Source [id number] 09/22/2019 12:00:00 AM EST [facility] ([facility], ) Name Value Range Interpretation Code Description Data Supporting Source(s) Document(s ) Creatinine 94.7 mg/dL Normal (applies to MEDGEN (S t , Urine non-numeric [facility] results) [facility], ) Protein/Cr 1072 mg/g Above high normal MEDGEN (St eat Ratio creat [facility], ) Creatinine 175.9 Normal (applies to MEDGEN (St , Urine mg/dL non-numeric [facility] results) [facility]) Protein/Cr 833 mg/g Above high normal MEDGEN (St eat Ratio creat [facility], ) ID Date Data Source [id number] 09/22/2019 12:00:00 AM EST [facility] ([facility], ) Name Value Range Interpretation Description Data Sup porting Code Source(s) Document(s ) Immunoglobulin G, 3867 Above high normal MEDG EN (St Qn, Serum mg/dL [facility]) Immunoglobulin A, 17 mg/dL Below low normal MEDGE N (St Qn, Serum [facility], ) Immunoglobulin M, 8 mg/dL Below low normal MEDGE N (St Qn, Serum [facility], ) Immunoglobulin G, 3973 Above high normal MEDG EN (St Qn, Serum mg/dL [facility], ) Immunoglobulin M, 13 mg/dL Below low normal MEDGE N (St Qn, Serum [facility], ) Immunoglobulin A, 25 mg/dL Below low normal MEDGE N (St Qn, Serum [facility], ) ID Date Data Source [id number] 09/22/2019 12:00:00 AM EST [facility] ([facility], ) Name Value Range Interpretation Description [...] Serum or Plasma ID Date Data Source [id number] 09/22/2019 12:00:00 AM EST [facility] ([facility], ) Name Value Range Interpretation Code [...] (St Globulin, non-numeric [facility] U results) [facility], ) Gamma 15.6 % Normal (applies [...] to MEDGEN (St non-numeric [facility] results) [facility], ) ID Date Data Source [id number] 09/22/2019 12:00:00 AM EST [facility] ([facility], ) Name Value Range Interpretation Description Data Sup porting Code Source(s) Document(s ) Microalbumin 4.0 g/dL Normal (applies MEDGEN (St [Mass/time] in to non-numeric [facility] Urine collected results) Medical, for unspecified PC) duration Itqnf-9-Fhjkvrbr 0.2 g/dL Normal (applies MEDGEN (St to non-numeric [facility] results) Medical, ) Ffher-9-Dzjzipyj 0.8 g/dL Normal (applies MEDGEN (St to non-numeric [facility] results) Medical, ) Beta globulin 0.7 g/dL Normal (applies MEDGEN (St [Mass/volume] in to non-numeric [facility] Urine by results) Medical, Electrophoresis PC) Gamma globulin 3.5 g/dL Above high normal MEDGEN (St [Mass/volume] by [facility] Electrophoresis in Medical, Urine collected ) for unspecified duration M-Kevyn 3.2 g/dL Above high normal MEDGEN ([facility], ) Globulin, Total 5.1 g/dL Above high normal [facility] ([facility], ) A/G Ratio 0.8 Normal (applies MEDGEN (St to non-numeric [facility] results) [facility], ) PDF . Normal (applies MEDGEN (St to non-numeric [facility] results) [facility], ) Protein 9.0 g/dL Above high normal MEDGEN (St [Mass/volume] in [facility] Serum or Plasma [facility], ) Microalbumin 4.0 g/dL Normal (applies MEDGEN (St [Mass/time] in to non-numeric [facility] Urine collected results) [facility], for unspecified PC) duration Lejtx-3-Vaxdwepo 0.2 g/dL Normal (applies MEDGEN (St to non-numeric [facility] results) [facility], ) Akujo-5-Mxtujzfw 0.8 g/dL Normal (applies MEDGEN (St to non-numeric [facility] results) [facility], ) Beta globulin 0.8 g/dL Normal (applies MEDGEN (St [Mass/volume] in to non-numeric [facility] Urine by results) [facility], Electrophoresis ) Gamma globulin 3.2 g/dL Above high normal MEDGEN (St [Mass/volume] by [facility] Electrophoresis in [facility], Urine collected ) for unspecified duration M-Kevyn 2.9 g/dL Above high normal [facility] ([facility], ) Globulin, Total 5.0 g/dL Above high normal [facility] ([facility], ) A/G Ratio 0.8 Normal (applies MEDGEN (St to non-numeric [facility] results) [facility], ) PDF . Normal (applies MEDGEN (St to non-numeric [facility] results) [facility], ) ID Date Data Source [id number] 09/22/2019 12:00:00 AM EST [facility] ([facility], ) Name Value Range Interpretation Description [...] results) Medical, ) ID Date Data Source [id number] 09/22/2019 12:00:00 AM EST [facility] ([facility] [...] in to non-numeric [facility] Urine results) [facility]) sediment by Automated count Cast Type Granular Abnormal (applies MEDGEN (St casts to non-numeric [facility] results) [facility], ) Crystals Present Abnormal (applies MEDGEN (St [#/area] in to non-numeric [facility] Body fluid by results) [facility], ) Light microscopy Crystal Type Calcium Normal (applies MEDGEN (St Oxalate to non-numeric [facility] results) [facility], ) Mucus Threads Present Normal (applies MEDGEN (St to non-numeric [facility] results) [facility], ) Bacteria Few Normal (applies MEDGEN (St [Presence] in to non-numeric [facility] Prostatic results) [facility]) fluid by Light microscopy ID Date Data Source [id number] 09/22/2019 12:00:00 AM EST [facility] ([facility], ) Name Value Range Interpretation Description Data Sup porting Code Source(s) Document(s ) Leukocytes 11.7 Above high normal MEDGEN (St [#/volume] in x10E3/uL [facility] Blood by [facility], ) Automated count Erythrocytes 2.47 Below lower panic MEDGEN (S t [#/volume] in x10E6/uL limits [facility] Blood by [facility], ) Automated count Hemoglobin 8.2 g/dL Below low normal MEDGEN (St [Mass/volume] in [facility] Blood [facility], ) Hematocrit 23.3 % Below low normal MEDGEN (St [Volume [facility] Fraction] of [facility], ) Blood by Automated count MCV 94 fL Normal (applies MEDGEN (St to non-numeric [facility] results) [facility], ) MCH 33.2 pg Above high normal [facility] ([facility], ) MCHC 35.2 Normal (applies MEDGEN (St g/dL to non-numeric [facility] results) [facility]) RDW 19.0 % Above high normal [facility]GEN ([facility], ) Platelets 198 Normal (applies MEDGEN (St [#/area] in x10E3/uL to non-numeric [facility] Blood by results) [facility]) Microscopy high power field Neutrophils [#] 54 % Normal (applies MEDGEN ( St in Body fluid by to non-numeric [facility] Manual count results) [facility]) Lymphs 13 % Normal (applies [facility]GEN (St to non-numeric [facility] results) [facility], ) Monocytes 16 % Normal (applies MEDGEN (St [#/volume] in to non-numeric [facility] Cord blood results) [facility], ) Eos 11 % Normal (applies [facility]GEN (St to non-numeric [facility] results) [facility], ) Neutrophils 6.4 Normal (applies MEDGEN (St (Absolute) x10E3/uL to non-numeric [facility] results) [facility], ) Basos 1 % Normal (applies MEDGEN (St to non-numeric [facility] results) [facility], ) Lymphs 1.5 Normal (applies MEDGEN (St (Absolute) x10E3/uL to non-numeric [facility] results) [facility], ) Eos (Absolute) 1.3 Above high normal MEDGEN (St x10E3/uL [facility], ) Monocytes(Absolu 1.9 Above high normal MEDGE N (St te) x10E3/uL Juan [facility]'s [facility], ) Baso (Absolute) 0.1 Normal (applies MEDGEN ( St x10E3/uL to non-numeric [facility] results) [facility], ) Immature 5 % Normal (applies MEDGEN (St Granulocytes to non-numeric [facility] results) [facility], ) Immature Grans 0.6 Above high normal MEDGEN (St (Abs) x10E3/uL [facility], ) NRBC 4 % Above high normal [facility] ([facility], ) Leukocytes 11.8 Above high normal MEDGEN (St [#/volume] in x10E3/uL [facility] Blood by [facility], ) Automated count Erythrocytes 3.28 Below low normal MEDGEN (St [#/volume] in x10E6/uL [facility] Blood by [facility], ) Automated count Hemoglobin 10.8 Below low normal MEDGEN (St [Mass/volume] in g/dL [facility] Blood [facility], ) Hematocrit 31.7 % Below low normal MEDGEN (St [Volume [facility]'s Fraction] of [facility], ) Blood by Automated count MCV 97 fL Normal (applies MEDGEN (St to non-numeric [facility] results) [facility], ) MCHC 34.1 Normal (applies MEDGEN (St g/dL to non-numeric [facility] results) [facility], ) MCH 32.9 pg Normal (applies MEDGEN (St to non-numeric [facility] results) [facility], ) RDW 17.5 % Above high normal [facility] ([facility], ) Neutrophils [#] 53 % Normal (applies MEDGEN ( St in Body fluid by to non-numeric [facility] Manual count results) [facility], ) Platelets 237 Normal (applies MEDGEN (St [#/area] in x10E3/uL to non-numeric [facility] Blood by results) [facility], ) Microscopy high power field Lymphs 20 % Normal (applies MEDGEN (St to non-numeric [facility] results) [facility], ) Monocytes 13 % Normal (applies MEDGEN (St [#/volume] in to non-numeric [facility] Cord blood results) [facility]) Basos 1 % Normal (applies MEDGEN (St to non-numeric [facility] results) [facility], ) Eos 12 % Normal (applies MEDGEN (St to non-numeric [facility] results) [facility]) Neutrophils 6.2 Normal (applies MEDGEN (St (Absolute) x10E3/uL to non-numeric [facility] results) [facility]) Lymphs 2.4 Normal (applies MEDGEN (St (Absolute) x10E3/uL to non-numeric [facility] results) [facility]) Monocytes(Absolu 1.5 Above high normal MEDGE N (St te) x10E3/uL [facility], ) Eos (Absolute) 1.5 Above high normal MEDGEN (St x10E3/uL [facility], ) Baso (Absolute) 0.1 Normal (applies MEDGEN ( St x10E3/uL to non-numeric [facility] results) [facility], ) Immature 1 % Normal (applies MEDGEN (St Granulocytes to non-numeric [facility] results) [facility]) Immature Grans 0.2 Above high normal MEDGEN (St (Abs) x10E3/uL [facility], ) Hematology Note: Normal (applies MEDGEN (St Comments: to non-numeric [facility] results) [facility], ) Leukocytes 9.5 Normal (applies MEDGEN (St [#/volume] in x10E3/uL to non-numeric [facility] Blood by results) [facility], ) Automated count Erythrocytes 3.28 Below low normal MEDGEN (St [#/volume] in x10E6/uL [facility] Blood by [facility], ) Automated count Hemoglobin 10.9 Below low normal MEDGEN (St [Mass/volume] in g/dL [facility] Blood [facility]) Hematocrit 32.1 % Below low normal MEDGEN (St [Volume [facility]'s Fraction] of [facility]) Blood by Automated count MCV 98 fL Above high normal [facility] ([facility], ) MCHC 34.0 Normal (applies MEDGEN (St g/dL to non-numeric [facility] results) [facility]) MCH 33.2 pg Above high normal [facility] ([facility], ) RDW 17.3 % Above high normal [facility] ([facility], ) Platelets 240 Normal (applies MEDGEN (St [#/area] in x10E3/uL to non-numeric [facility] Blood by results) [facility]) Microscopy high power field Neutrophils [#] 53 % Normal (applies MEDGEN ( St in Body fluid by to non-numeric [facility] Manual count results) [facility]) Lymphs 19 % Normal (applies MEDGEN (St to non-numeric [facility] results) [facility]) Eos 11 % Normal (applies MEDGEN (St to non-numeric [facility] results) [facility]) Monocytes 15 % Normal (applies MEDGEN (St [#/volume] in to non-numeric [facility] Cord blood results) [facility]) Basos 0 % Normal (applies MEDGEN (St to non-numeric [facility] results) [facility]) Lymphs 1.8 Normal (applies MEDGEN (St (Absolute) x10E3/uL to non-numeric [facility] results) [facility]) Neutrophils 5.1 Normal (applies MEDGEN (St (Absolute) x10E3/uL to non-numeric [facility] results) [facility]) Monocytes(Absolu 1.5 Above high normal MEDGE N (St te) x10E3/uL [facility]) Eos (Absolute) 1.0 Above high normal MEDGEN (St x10E3/uL [facility]) Baso (Absolute) 0.0 Normal (applies MEDGEN ( St x10E3/uL to non-numeric [facility] results) [facility]) Immature 2 % Normal (applies MEDGEN (St Granulocytes to non-numeric [facility] results) Medical, ) Hematology Note: Normal (applies MEDGEN (St Comments: to non-numeric [facility] results) Medical, ) Immature Grans 0.2 Above high normal MED[facility] (St (Abs) x10E3/uL [facility], ) ID Date Data Source [id number] 09/22/2019 12:00:00 AM EST [facility] ([facility], ) Name Value Range Interpretation Code Description Data Lisa rce(s) Supporting Document(s ) ID Date Data Source [id number] 09/22/2019 12:00:00 AM EST [facility] ([facility], ) Name Value Range Interpretation Code Description Data Supporting Source(s) Document(s ) PTH, Intact 14 pg/mL Below low normal [facility] ([facility], ) ID Date Data Source [id number] 09/22/2019 12:00:00 AM EST [facility] ([facility], ) Name Value Range Interpretation Code Description Data Supporting Source(s) Document(s ) Ferritin, 329 ng/mL Normal (applies to MEDGEN (St Serum non-numeric [facility] results) Medical, ) ID Date Data Source [id number] 09/22/2019 12:00:00 AM EST [facility] ([facility], ) Name Value Range Interpretation Description Data Sup porting Code Source(s) Document(s ) Deprecated 4.8 mg/dL Above high normal MED[facility] (St Phosphorus [facility] [Mass/time] in Medical, ) 24 hour Urine ID Date Data Source [id number] 09/22/2019 12:00:00 AM EST [facility] ([facility], ) Name Value Range Interpretation Code Description Data Lisa rce(s) Supporting Document(s ) ID Date Data Source [id number] 09/22/2019 12:00:00 AM EST [facility] ([facility], ) Name Value Range Interpretation Description Data Sup porting Code Source(s) Document(s ) Vitamin D, 42.8 Normal (applies to MEDGEN (St 25-Hydroxy ng/mL non-numeric [facility] results) Medical, ) Vitamin D, 36.2 Normal (applies to [facility]GEN (St 25-Hydroxy ng/mL non-numeric [facility] results) Medical, ) ID Date Data Source [id number] 09/22/2019 12:00:00 AM EST [facility] ([facility]) Name Value Range Interpretation Code Description Data Supporting Source(s) Document(s ) Albumin, 693.2 Normal (applies to MEDGEN (St Urine ug/mL non-numeric [facility] results) Medical, ) Alb/Creat 394.1 mg/g Above high normal [facility] (St Ratio creat [facility], ) ID Date Data Source [id number] 09/22/2019 12:00:00 AM EST [facility] ([facility]) Name Value Range Interpretation Description Data Sup porting Code Source(s) Document(s ) Free [place] 476.00 Above high normal MEDGEN (St Lt mg/L [facility]) Free [place] 44.50 mg/L Above high normal [facility] (S t Lt [facility]) [place] 10.70 Above high normal [facility] (St a Ratio,U [facility]) ID Date Data Source [id number] 09/22/2019 12:00:00 AM EST [facility] ([facility]) Name Value Range Interpretation Description Data Sup porting Code Source(s) Document(s ) Free [place] 38.9 mg/L Above high normal MEDGEN (St Lt Chains,S [facility]) Free [place] 133.0 mg/L Above high normal [facility] (S t Lt Chains,S [facility]) [place] 0.29 Normal (applies to MEDGEN (S t a Ratio,S non-numeric [facility] results) Medical, ) ID Date Data Source [id number] 09/22/2019 12:00:00 AM EST [facility] ([facility]) Name Value Range Interpretation Code Description Data Supporting Source(s) Document(s ) Creatinine 175.9 Normal (applies to MEDGEN (St , Urine mg/dL non-numeric [facility] results) Medical, ) Protein/Cr 833 mg/g Above high normal [facility]GEN (St eat Ratio creat [facility]) ID Date Data Source [id number] 09/22/2019 12:00:00 AM EST [facility] ([facility]) Name Value Range Interpretation Description Data Sup porting Code Source(s) Document(s ) Immunoglobulin G, 3973 Above high normal MEDG EN (St Qn, Serum mg/dL [facility]) Immunoglobulin M, 13 mg/dL Below low normal MEDGE N (St Qn, Serum [facility]) Immunoglobulin A, 25 mg/dL Below low normal MEDGE N (St Qn, Serum [facility]) ID Date Data Source [id number] 09/22/2019 12:00:00 AM EST MED[facility] ([facility] [place]) Name Value Range Interpretation Description Data Sup porting Code Source(s) Document(s ) UIBC 222 ug/dL Normal (applies to MEDGEN (St non-numeric [facility] results) [facility]) Iron 297 ug/dL Normal (applies to MEDGEN (St Bind.Cap.(TIBC non-numeric [facility]'s ) results) [facility]) Iron 25 % Normal (applies to MEDGEN (St saturation non-numeric [facility] [Mass results) [facility]) Fraction] in Serum or Plasma Iron 75 ug/dL Normal (applies to MEDGEN (St [Mass/volume] non-numeric [facility] in Serum or results) [facility]) Plasma ID Date Data Source [id number] 09/22/2019 12:00:00 AM EST MEDGEN ([facility] [place]) Name Value Range Interpretation Code Description Data Supporting Source(s) Document(s ) Protein,To 146.6 Normal (applies to MEDGEN (St ruth,Urine mg/dL non-numeric [facility] results) [facility]) Albumin, U 47.8 % Normal (applies to MEDGEN (St non-numeric [facility] results) [facility]) Alpha-1-Gl 3.5 % Normal (applies to MEDGEN (St obulin, U non-numeric [facility] results) [facility]) Beta 24.4 % Normal (applies to MEDGEN (St Globulin, non-numeric [facility] U results) [facility]) Alpha-2-Gl 9.6 % Normal (applies to MEDGEN (St obulin, U non-numeric [facility] results) [facility]) Gamma 14.8 % Normal (applies to MEDGEN (St Globulin, non-numeric [facility] U results) [facility]) M-Kevyn, % 9.8 % Above high normal MEDGEN ([facility], ) PDF . Normal (applies to MEDGEN (St non-numeric [facility] results) [facility], ) ID Date Data Source [id number] 09/22/2019 12:00:00 AM EST MED[facility] ([facility] [place] [place]) Name Value Range Interpretation Description Data Sup porting Code Source(s) Document(s ) Protein 9.0 g/dL Above high normal MEDGEN (St [Mass/volume] in [facility] Serum or Plasma Medical, ) Microalbumin 4.0 g/dL Normal (applies MEDGEN (St [Mass/time] in to non-numeric [facility] Urine collected results) Medical, for unspecified PC) duration Nqszy-5-Yaowqbuv 0.8 g/dL Normal (applies MEDGEN (St to non-numeric [facility] results) Medical, ) Iwwmx-2-Ncxlyqgv 0.2 g/dL Normal (applies MEDGEN (St to non-numeric [facility] results) Medical, ) Beta globulin 0.8 g/dL Normal (applies MEDGEN (St [Mass/volume] in to non-numeric [facility]'s Urine by results) Medical, Electrophoresis PC) Gamma globulin 3.2 g/dL Above high normal MEDGEN (St [Mass/volume] by [facility]'s Electrophoresis in Medical, Urine collected ) for unspecified duration M-Kevyn 2.9 g/dL Above high normal MEDGEN ([facility], ) Globulin, Total 5.0 g/dL Above high normal MEDGEN ([facility], ) PDF . Normal (applies MEDGEN (St to non-numeric Juan C's results) Medical, ) A/G Ratio 0.8 Normal (applies MEDGEN (St to non-numeric Juan C's results) [facility], ) ID Date Data Source [id number] 09/22/2019 12:00:00 AM EST MEDGEN ( [facility], ) Name Value Range Interpretation Description [...] to non-numeric Juan C's Urine collected results) [facility], for unspecified PC) duration Protein Abnormal [...] (St Examination to non-numeric Juan C's results) [facility], ) ID Date Data Source [id number] 09/22/2019 12:00:00 AM EST MEDGEN (St Julienne [...] (St casts to non-numeric Juan C's results) [facility], ) Mucus Threads Present Normal (applies MEDGEN (St to non-numeric Juan C's results) [facility], ) Crystal Type Calcium Normal (applies MEDGEN (St Oxalate to non-numeric Juan C's results) [facility], ) Bacteria Few Normal (applies MEDGEN (St [Presence] in to non-numeric Juan C's Prostatic results) [facility], ) fluid by Light microscopy ID Date Data Source [id number] 09/22/2019 12:00:00 AM EST MEDGEN (St Julienne 's [facility], ) Name Value Range Interpretation Description Data Sup porting Code Source(s) Document(s ) Erythrocytes 3.28 Below low normal MEDGEN (St [#/volume] in x10E6/uL Juan C's Blood by [facility], ) Automated count Leukocytes 11.8 Above high normal MEDGEN (St [#/volume] in x10E3/uL Juan C's Blood by [facility], ) Automated count Hemoglobin 10.8 Below low normal MEDGEN (St [Mass/volume] in g/dL Juan C's Blood [facility], ) Hematocrit 31.7 % Below low normal MEDGEN (St [Volume Juan C's Fraction] of [facility], ) Blood by Automated count MCV 97 fL Normal (applies MEDGEN (St to non-numeric Juan C's results) [facility], ) MCH 32.9 pg Normal (applies MEDGEN (St to non-numeric Juan C's results) [facility], ) RDW 17.5 % Above high normal MEDGEN ([facility], ) MCHC 34.1 Normal (applies MEDGEN (St g/dL to non-numeric Juan C's results) [facility], ) Platelets 237 Normal (applies MEDGEN (St [#/area] in x10E3/uL to non-numeric Juan C's Blood by results) [facility], ) Microscopy high power field Neutrophils [#] 53 % Normal (applies MEDGEN ( St in Body fluid by to non-numeric Juan C's Manual count results) [facility], ) Monocytes 13 % Normal (applies MEDGEN (St [#/volume] in to non-numeric Juan C's Cord blood results) [facility], ) Lymphs 20 % Normal (applies MEDGEN (St to non-numeric Juan C's results) [facility], ) Eos 12 % Normal (applies MEDGEN (St to non-numeric Juan C's results) Medical, ) Basos 1 % Normal (applies MEDGEN (St to non-numeric Juan C's results) [facility], ) Neutrophils 6.2 Normal (applies MEDGEN (St (Absolute) x10E3/uL to non-numeric Juan C's results) [facility], ) Lymphs 2.4 Normal (applies MEDGEN (St (Absolute) x10E3/uL to non-numeric Juan C's results) [facility], ) Monocytes(Absolu 1.5 Above high normal MEDGE N (St te) x10E3/uL Juan C's [facility], ) Eos (Absolute) 1.5 Above high normal MEDGEN (St x10E3/uL Juan C's [facility], ) Baso (Absolute) 0.1 Normal (applies MEDGEN ( St x10E3/uL to non-numeric Juan C's results) [facility], ) Immature 1 % Normal (applies MEDGEN (St Granulocytes to non-numeric Juan C's results) [facility], ) Immature Grans 0.2 Above high normal MEDGEN (St (Abs) x10E3/uL Juan C's [facility], ) Hematology Note: Normal (applies MEDGEN (St Comments: to non-numeric Juan C's results) [facility], ) Erythrocytes 3.28 Below low normal MEDGEN (St [#/volume] in x10E6/uL Juan C's Blood by [facility], ) Automated count Leukocytes 9.5 Normal (applies MEDGEN (St [#/volume] in x10E3/uL to non-numeric Juan C's Blood by results) [facility], ) Automated count Hematocrit 32.1 % Below low normal MEDGEN (St [Volume Juan C's Fraction] of [facility], ) Blood by Automated count Hemoglobin 10.9 Below low normal MEDGEN (St [Mass/volume] in g/dL Juan C's Blood [facility], ) MCV 98 fL Above high normal MEDGEN ([facility], ) MCH 33.2 pg Above high normal MEDGEN ([facility], ) MCHC 34.0 Normal (applies MEDGEN (St g/dL to non-numeric Juan C's results) [facility], ) RDW 17.3 % Above high normal MEDGEN ([facility], ) Neutrophils [#] 53 % Normal (applies MEDGEN ( St in Body fluid by to non-numeric Juan C's Manual count results) [facility], ) Platelets 240 Normal (applies MEDGEN (St [#/area] in x10E3/uL to non-numeric Juan C's Blood by results) [facility]) Microscopy high power field Lymphs 19 % Normal (applies MEDGEN (St to non-numeric Juan C's results) [facility], ) Monocytes 15 % Normal (applies MEDGEN (St [#/volume] in to non-numeric Juan C's Cord blood results) [facility], ) Basos 0 % Normal (applies MEDGEN (St to non-numeric Juan C's results) [facility], ) Eos 11 % Normal (applies MEDGEN (St to non-numeric Juan C's results) [facility]) Lymphs 1.8 Normal (applies MEDGEN (St (Absolute) x10E3/uL to non-numeric Juan C's results) [facility]) Neutrophils 5.1 Normal (applies MEDGEN (St (Absolute) x10E3/uL to non-numeric Juan C's results) [facility], ) Monocytes(Absolu 1.5 Above high normal MEDGE N (St te) x10E3/uL Juan C's [facility], ) Eos (Absolute) 1.0 Above high normal MEDGEN (St x10E3/uL Juan C's [facility], ) Baso (Absolute) 0.0 Normal (applies MEDGEN ( St x10E3/uL to non-numeric Juan C's results) [facility], ) Immature 2 % Normal (applies MEDGEN (St Granulocytes to non-numeric Juan C's results) [facility]) Immature Grans 0.2 Above high normal MEDGEN (St (Abs) x10E3/uL [facility], ) Hematology Note: Normal (applies MEDGEN (St Comments: to non-numeric Juan C's results) [facility]) ID Date Data Source [id number] 09/22/2019 12:00:00 AM EST MEDGEN (St Julienne hn's [facility], ) Name Value Range Interpretation Code Description Data Lisa rce(s) Supporting Document(s ) ID Date Data Source [id number] 09/22/2019 12:00:00 AM EST MEDGEN (St Julienne hn's [facility], ) Name Value Range Interpretation Code Description Data Supporting Source(s) Document(s ) PTH, Intact 14 pg/mL Below low normal MEDGEN ([facility], ) ID Date Data Source [id number] 09/22/2019 12:00:00 AM EST MEDGEN (St [facility], ) Name Value Range Interpretation Code Description Data Lisa rce(s) Supporting Document(s ) ID Date Data Source [id number] 09/22/2019 12:00:00 AM EST MEDGEN (St [facility], ) Name Value Range Interpretation Code Description Data Supporting Source(s) Document(s ) PTH, Intact 14 pg/mL Below low normal MEDGEN ([place], ) ID Date Data Source [id number] 09/22/2019 12:00:00 AM EST MEDGEN (St [facility], ) Name Value Range Interpretation Code Description Data Supporting Source(s) Document(s ) Ferritin, 329 ng/mL Normal (applies to MEDGEN (St Serum non-numeric Juan C's results) [facility], ) ID Date Data Source [id number] 09/22/2019 12:00:00 AM EST MEDGEN (St [facility], ) Name Value Range Interpretation Description Data Sup porting Code Source(s) Document(s ) Deprecated 4.8 mg/dL Above high normal MEDGEN (St Phosphorus Juan C's [Mass/time] in Medical, ) 24 hour Urine ID Date Data Source [id number] 09/22/2019 12:00:00 AM EST MEDGEN (St [facility], ) Name Value Range Interpretation Code Description Data Lisa rce(s) Supporting Document(s ) RAGINI Normal (applies to MEDGEN (St Interpreta non-numeric results) Juan C's M edical, tion:U ) ID Date Data Source [id number] 09/22/2019 12:00:00 AM EST MEDGEN (St [facility], ) Name Value Range Interpretation Description Data Sup porting Code Source(s) Document(s ) Vitamin D, 36.2 Normal (applies to MEDGEN (St 25-Hydroxy ng/mL non-numeric Juan C's results) [facility], ) ID Date Data Source [id number] 09/22/2019 12:00:00 AM EST MEDGEN (St [facility] 's [facility], ) Name Value Range Interpretation Code Description Data Supporting Source(s) Document(s ) Albumin, 693.2 Normal (applies to MEDGEN (St Urine ug/mL non-numeric Juan C's results) [facility], ) Alb/Creat 394.1 mg/g Above high normal MEDGEN (St Ratio creat [facility], ) ID Date Data Source [id number] 09/22/2019 12:00:00 AM EST MEDGEN (St Julienne 's [facility], ) Name Value Range Interpretation Description Data Sup porting Code Source(s) Document(s ) Free [place] 476.00 Above high normal MEDGEN (St Lt mg/L Jua Nc's Chains,[facility], ) Free Lambda 44.50 mg/L Above high normal MEDGEN (S t Lt Juan C's Chains,Ur [facility], ) [place]d 10.70 Above high normal MEDGEN (St a Ratio,U [facility], ) ID Date Data Source [id number] 09/22/2019 12:00:00 AM EST MEDGEN (St [facility], ) Name Value Range Interpretation Description Data Sup porting Code Source(s) Document(s ) Free [place] 38.9 mg/L Above high normal MEDGEN (St Lt Chains,S [facility]'s [facility], ) Free Lambda 133.0 mg/L Above high normal MEDGEN (S t Lt Chains,S [facility]'s [facility], ) [place]d 0.29 Normal (applies to MEDGEN (S t a Ratio,S non-numeric Juan C's results) [facility], ) ID Date Data Source [id number] 09/22/2019 12:00:00 AM EST MEDGEN (St [facility], ) Name Value Range Interpretation Code Description Data Supporting Source(s) Document(s ) Creatinine 175.9 Normal (applies to MEDGEN (St , Urine mg/dL non-numeric Juan C's results) [facility], ) Protein/Cr 833 mg/g Above high normal MEDGEN (St eat Ratio creat [facility], ) ID Date Data Source [id number] 09/22/2019 12:00:00 AM EST MEDGEN ([facility], ) Name Value Range Interpretation Description Data Sup porting Code Source(s) Document(s ) Immunofixation Normal (applies MEDGEN (S t Result, Serum to non-numeric Juan C's results) [facility], ) Immunoglobulin G, 3973 Above high normal MEDG EN (St Qn, Serum mg/dL [facility], ) Immunoglobulin A, 25 mg/dL Below low normal MEDGE N (St Qn, Serum Juan C's [facility], ) Immunoglobulin M, 13 mg/dL Below low normal MEDGE N (St Qn, Serum [facility]) ID Date Data Source [id number] 09/22/2019 12:00:00 AM EST MEDGEN (St [facility], ) Name Value Range Interpretation Description Data Sup porting Code Source(s) Document(s ) Iron 297 ug/dL Normal (applies to MEDGEN (St Bind.Cap.(TIBC non-numeric Juan C's ) results) [facility]) UIBC 222 ug/dL Normal (applies to MEDGEN (St non-numeric Juan C's results) [facility]) Iron 75 ug/dL Normal (applies to MEDGEN (St [Mass/volume] non-numeric Juan C's in Serum or results) [facility], ) Plasma Iron 25 % Normal (applies to MEDGEN (St saturation non-numeric Ujan C's [Mass results) [facility]) Fraction] in Serum or Plasma ID Date Data Source [id number] 09/22/2019 12:00:00 AM EST MEDGEN (St [facility], ) Name Value Range Interpretation Description Data Sup porting Code Source(s) Document(s ) Protein,Tot 146.6 Normal (applies to MEDGEN (S t al,Urine mg/dL non-numeric Juan C's results) [facility], ) Albumin, U 47.8 % Normal (applies to MEDGEN (St non-numeric Juan C's results) [facility], ) Alpha-1-Nadine 3.5 % Normal (applies to MEDGEN (S t bulin, U non-numeric Juan C's results) [facility]) Alpha-2-Nadine 9.6 % Normal (applies to MEDGEN (S t bulin, U non-numeric Juan C's results) [facility]) Beta 24.4 % Normal (applies to MEDGEN (St Globulin, U non-numeric Juan C's results) [facility]) Gamma 14.8 % Normal (applies to MEDGEN (St Globulin, U non-numeric Juan C's results) [facility]) M-Kevyn, % 9.8 % Above high normal MEDGEN ([facility], ) Please Normal (applies to MEDGEN (St note: non-numeric Juan C's results) Medical, ) PDF . Normal (applies to MEDGEN (St non-numeric Juan C's results) Medical, ) ID Date Data Source [id number] 09/22/2019 12:00:00 AM EST MEDGEN (St [facility] Medical, ) Name Value Range Interpretation Description Data Sup porting Code Source(s) Document(s ) Protein 9.0 g/dL Above high normal MEDGEN (St [Mass/volume] in Juan C's Serum or Plasma Medical, ) Microalbumin 4.0 g/dL Normal (applies MEDGEN (St [Mass/time] in to non-numeric Juan C's Urine collected results) Medical, for unspecified PC) duration Ppqbw-7-Decpbkto 0.2 g/dL Normal (applies MEDGEN (St to non-numeric Juan C's results) Medical, PC) Jrlxk-7-Tqxqrakp 0.8 g/dL Normal (applies MEDGEN (St to [...] 5.0 g/dL Above high normal MEDGEN ([facility], ) A/G Ratio 0.8 Normal (applies MEDGEN (St to non-numeric Juan C's results) Medical, PC) Please note: Normal (applies MEDGEN (St to non-numeric Juan C's results) Medical, ) PDF . Normal (applies MEDGEN (St to non-numeric Juan C's results) Medical, ) ID Date Data Source [id number] 09/22/2019 12:00:00 AM EST MEDGEN (St Julienne [...] to non-numeric Juan C's Urine collected results) [facility], for unspecified PC) duration Ketones Negative [...] results) Medical, ) ID Date Data Source [id number] 09/22/2019 12:00:00 AM EST MEDGEN (St Julienne [...] non-numeric Juan C's Body fluid by results) [facility], ) Light microscopy Crystal Type Calcium Normal (applies MEDGEN (St Oxalate to non-numeric Juan C's results) [facility], ) Mucus Threads Present Normal (applies MEDGEN (St to non-numeric Juan C's results) [facility], ) Bacteria Few Normal (applies MEDGEN (St [Presence] in to non-numeric Juan C's Prostatic results) [facility], ) fluid by Light microscopy ID Date Data Source [id number] 09/22/2019 12:00:00 AM EST MEDGEN (St [facility]s [facility], ) Name Value Range Interpretation Description Data Sup porting Code Source(s) Document(s ) Leukocytes 9.5 Normal (applies MEDGEN (St [#/volume] in x10E3/uL to non-numeric Juan C's Blood by results) [facility], ) Automated count Erythrocytes 3.28 Below low normal MEDGEN (St [#/volume] in x10E6/uL Juan C's Blood by [facility], ) Automated count Hemoglobin 10.9 Below low normal MEDGEN (St [Mass/volume] in g/dL Juan C's Blood [facility], ) Hematocrit 32.1 % Below low normal MEDGEN (St [Volume Juan C's Fraction] of [facility], ) Blood by Automated count MCV 98 fL Above high normal MEDGEN ([facility], ) MCH 33.2 pg Above high normal MEDGEN ([facility], ) MCHC 34.0 Normal (applies MEDGEN (St g/dL to non-numeric Juan C's results) [facility], ) RDW 17.3 % Above high normal [facility] ([facility], ) Platelets 240 Normal (applies MEDGEN (St [#/area] in x10E3/uL to non-numeric Juan C's Blood by results) [facility], ) Microscopy high power field Neutrophils [#] 53 % Normal (applies MEDGEN ( St in Body fluid by to non-numeric Juan C's Manual count results) [facility], ) Lymphs 19 % Normal (applies MEDGEN (St to non-numeric Juan C's results) [facility], ) Monocytes 15 % Normal (applies MEDGEN (St [#/volume] in to non-numeric Juan C's Cord blood results) [facility], ) Eos 11 % Normal (applies [...] results) Medical, ) ID Date Data Source [id number] 09/22/2019 12:00:00 AM EST MEDGEN ([facility], ) Name Value Range Interpretation Code Description Data Lisa rce(s) Supporting Document(s ) ID Date Data Source [id number] 09/22/2019 12:00:00 AM EST MEDGEN ([facility], ) Name Value Range Interpretation Code Description Data Supporting Source(s) Document(s ) PTH, Intact 14 pg/mL Below low normal MEDGEN ([facility], ) ID Date Data Source [id number] 09/22/2019 12:00:00 AM EST MEDGEN ([facility], ) Name Value Range Interpretation Code Description Data Supporting Source(s) Document(s ) Ferritin, 329 ng/mL Normal (applies to MEDGEN (St Serum non-numeric Juan C's results) Medical, ) ID Date Data Source [id number] 09/22/2019 12:00:00 AM EST MEDGEN ([facility], ) Name Value Range Interpretation Description Data Sup porting Code Source(s) Document(s ) Deprecated 4.8 mg/dL Above high normal MEDGEN (St Phosphorus Juan C's [Mass/time] in [facility], ) 24 hour Urine ID Date Data Source [id number] 09/22/2019 12:00:00 AM EST MEDGEN ([facility], ) Name Value Range Interpretation Code Description Data Lisa rce(s) Supporting Document(s ) ID Date Data Source [id number] 09/22/2019 12:00:00 AM EST MEDGEN ([facility], ) Name Value Range Interpretation Description Data Sup porting Code Source(s) Document(s ) Vitamin D, 36.2 Normal (applies to MEDGEN (St 25-Hydroxy ng/mL non-numeric Juan C's results) [facility], ) ID Date Data Source [id number] 09/22/2019 12:00:00 AM EST MEDGEN ([facility], ) Name Value Range Interpretation Code Description Data Supporting Source(s) Document(s ) Albumin, 693.2 Normal (applies to MEDGEN (St Urine ug/mL non-numeric Juan C's results) [facility], ) Alb/Creat 394.1 mg/g Above high normal MEDGEN (St Ratio creat [facility], ) ID Date Data Source [id number] 09/22/2019 12:00:00 AM EST MEDGEN ([facility], ) Name Value Range Interpretation Description Data Sup porting Code Source(s) Document(s ) Free [place] 476.00 Above high normal MEDGEN (St Lt mg/L Juan C's Chains,[facility], ) Free Lambda 44.50 mg/L Above high normal MEDGEN (S t Lt Juan C's Chains,[facility], ) [place] 10.70 Above high normal MEDGEN (St a Ratio,U [facility], ) ID Date Data Source [id number] 09/22/2019 12:00:00 AM EST MEDGEN (St [facility], ) Name Value Range Interpretation Description Data Sup porting Code Source(s) Document(s ) Free [place] 38.9 mg/L Above high normal MEDGEN (St Lt Chains,S [facility], ) Free Lambda 133.0 mg/L Above high normal MEDGEN (S t Lt Chains,S [facility], ) [place] 0.29 Normal (applies to MEDGEN (S t a Ratio,S non-numeric Juan C's results) [facility]) ID Date Data Source [id number] 09/22/2019 12:00:00 AM EST MEDGEN ([facility] [place]) Name Value Range Interpretation Code Description Data Supporting Source(s) Document(s ) Creatinine 175.9 Normal (applies to MEDGEN (St , Urine mg/dL non-numeric Juan C's results) [facility]) Protein/Cr 833 mg/g Above high normal MEDGEN (St eat Ratio creat [facility]) ID Date Data Source [id number] 09/22/2019 12:00:00 AM EST MEDGEN ([facility] [place]) Name Value Range Interpretation Description Data Sup porting Code Source(s) Document(s ) Immunoglobulin G, 3973 Above high normal MEDG EN (St Qn, Serum mg/dL [facility]) Immunoglobulin A, 25 mg/dL Below low normal MEDGE N (St Qn, Serum [facility]) Immunoglobulin M, 13 mg/dL Below low normal MEDGE N (St Qn, Serum [facility]) ID Date Data Source [id number] 09/22/2019 12:00:00 AM EST MEDGEN ([facility] [place]) Name Value Range Interpretation Description Data Sup porting Code Source(s) Document(s ) Iron 297 ug/dL Normal (applies to MEDGEN (St Bind.Cap.(TIBC non-numeric Juan C's ) results) [facility]) UIBC 222 ug/dL Normal (applies to MEDGEN (St non-numeric Juan C's results) [facility]) Iron 25 % Normal (applies to MEDGEN (St saturation non-numeric Juan C's [Mass results) [facility]) Fraction] in Serum or Plasma Iron 75 ug/dL Normal (applies to MEDGEN (St [Mass/volume] non-numeric Juan C's in Serum or results) [facility]) Plasma ID Date Data Source [id number] 09/22/2019 12:00:00 AM EST MEDGEN ([facility] [place]) Name Value Range Interpretation Code Description Data Supporting Source(s) Document(s ) Albumin, U 47.8 % Normal (applies to MEDGEN (St non-numeric Juan C's results) Medical, ) Protein,To 146.6 Normal (applies to MEDGEN (St ruth,Urine mg/dL non-numeric Juan C's results) [facility], ) Alpha-1-Gl 3.5 % Normal (applies to MEDGEN (St obulin, U non-numeric Juan C's results) [facility], ) Alpha-2-Gl 9.6 % Normal (applies to MEDGEN (St obulin, U non-numeric Juan C's results) [facility], ) Gamma 14.8 % Normal (applies to MEDGEN (St Globulin, non-numeric Juan C's U results) [facility], ) Beta 24.4 % Normal (applies to MEDGEN (St Globulin, non-numeric Juan C's U results) [facility], ) M-Kevyn, % 9.8 % Above high normal MEDGEN ([facility], ) PDF . Normal (applies to MEDGEN (St non-numeric Juan C's results) [facility], ) ID Date Data Source [id number] 09/22/2019 12:00:00 AM EST MEDGEN (St [facility], ) Name Value Range Interpretation Description Data Sup porting Code Source(s) Document(s ) Protein 9.0 g/dL Above high normal MEDGEN (St [Mass/volume] in Juan C's Serum or Plasma [facility], ) Ycygd-1-Twsiodmf 0.2 g/dL Normal (applies MEDGEN (St to non-numeric Juan C's results) [facility], ) Microalbumin 4.0 g/dL Normal (applies MEDGEN (St [Mass/time] in to non-numeric Juan C's Urine collected results) [facility], for unspecified PC) duration Ybkkq-2-Qfphciov 0.8 g/dL Normal (applies MEDGEN (St to non-numeric Juan C's results) [facility], ) Beta globulin 0.8 g/dL Normal (applies MEDGEN (St [Mass/volume] in to non-numeric Juan C's Urine by results) [facility], Electrophoresis PC) Gamma globulin 3.2 g/dL Above high normal MEDGEN (St [Mass/volume] by Juan C's Electrophoresis in Medical, Urine collected ) for unspecified duration M-Kevyn 2.9 g/dL Above high normal MEDGEN ([facility], ) Globulin, Total 5.0 g/dL Above high normal MEDGEN ([facility], ) A/G Ratio 0.8 Normal (applies MEDGEN (St to non-numeric Juan C's results) Medical, ) PDF . Normal (applies MEDGEN (St to non-numeric Juan C's results) Medical, ) ID Date Data Source [id number] 09/22/2019 12:00:00 AM EST MEDGEN (St Julienne [...] to non-numeric Juan C's Urine collected results) [facility], for unspecified PC) duration Ketones Negative [...] results) Medical, ) ID Date Data Source [id number] 09/22/2019 12:00:00 AM EST [facility] ([facility], ) Name Value Range Interpretation Description Data Sup porting Code Source(s) Document(s ) WBC 0-5 Normal (applies MEDGEN (St to non-numeric Juan C's results) [facility], ) RBC 0-2 Normal (applies MEDGEN (St to non-numeric Juan C's results) [facility], ) Epithelial None seen Normal (applies MEDGEN (St Cells (non to non-numeric Juan C's renal) results) [facility], ) Casts Present Abnormal (applies MEDGEN (St [#/area] in to non-numeric Juan C's Urine results) [facility], ) sediment by Automated count Cast Type Granular Abnormal (applies MEDGEN (St casts to non-numeric Juan C's results) [facility], ) Crystals Present Abnormal (applies MEDGEN (St [#/area] in to non-numeric Juan C's Body fluid by results) [facility], ) Light microscopy Crystal Type Calcium Normal (applies MEDGEN (St Oxalate to non-numeric Juan C's results) [facility], ) Mucus Threads Present Normal (applies MEDGEN (St to non-numeric Juan C's results) [facility], ) Bacteria Few Normal (applies MEDGEN (St [Presence] in to non-numeric Juan C's Prostatic results) [facility], ) fluid by Light microscopy ID Date Data Source [id number] 09/22/2019 12:00:00 AM EST MEDGEN ([facility], ) Name Value Range Interpretation Description Data Sup porting Code Source(s) Document(s ) Leukocytes 9.5 Normal (applies MEDGEN (St [#/volume] in x10E3/uL to non-numeric Juan C's Blood by results) [facility], ) Automated count Erythrocytes 3.28 Below low normal MEDGEN (St [#/volume] in x10E6/uL Juan C's Blood by [facility], ) Automated count Hemoglobin 10.9 Below low normal MEDGEN (St [Mass/volume] in g/dL Juan C's Blood [facility], ) Hematocrit 32.1 % Below low normal MEDGEN (St [Volume Juan C's Fraction] of [facility], ) Blood by Automated count MCV 98 fL Above high normal MEDGEN ([facility], ) MCH 33.2 pg Above high normal MEDGEN ([facility], ) MCHC 34.0 Normal (applies MEDGEN (St g/dL to non-numeric Juan C's results) [facility], ) RDW 17.3 % Above high normal MEDGEN ([facility], ) Platelets 240 Normal (applies MEDGEN (St [#/area] in x10E3/uL to non-numeric Juan C's Blood by results) [facility], ) Microscopy high power field Neutrophils [#] 53 % Normal (applies MEDGEN ( St in Body fluid by to non-numeric Juan C's Manual count results) [facility], ) Lymphs 19 % Normal (applies MEDGEN (St to non-numeric Juan C's results) [facility]) Monocytes 15 % Normal (applies MEDGEN (St [#/volume] in to non-numeric Juan C's Cord blood results) [facility]) Eos 11 % Normal (applies MEDGEN (St to non-numeric Juan C's results) [facility]) Basos 0 % Normal (applies MEDGEN (St to non-numeric Juan C's results) [facility]) Neutrophils 5.1 Normal (applies MEDGEN (St (Absolute) x10E3/uL to non-numeric Juan C's results) [facility]) Monocytes(Absolu 1.5 Above high normal MEDGE N (St te) x10E3/uL Juan C's [facility]) Lymphs 1.8 Normal (applies MEDGEN (St (Absolute) x10E3/uL to non-numeric Juan C's results) [facility]) Eos (Absolute) 1.0 Above high normal MEDGEN (St x10E3/uL Juan C's [facility], ) Baso (Absolute) 0.0 Normal (applies MEDGEN ( St x10E3/uL to non-numeric Juan C's results) [facility], ) Immature 2 % Normal (applies MEDGEN (St Granulocytes to non-numeric Juan C's results) [facility]) Immature Grans 0.2 Above high normal MEDGEN (St (Abs) x10E3/uL [facility]) Hematology Note: Normal (applies MEDGEN (St Comments: to non-numeric Juan C's results) [facility]) ID Date Data Source [id number] 09/22/2019 12:00:00 AM EST MEDGEN (St Julienne hn's [facility], ) Name Value Range Interpretation Code Description Data Lisa rce(s) Supporting Document(s ) ID Date Data Source [id number] 09/22/2019 12:00:00 AM EST MEDGEN ([facility], ) Name Value Range Interpretation Code Description Data Supporting Source(s) Document(s ) PTH, Intact 14 pg/mL Below low normal MEDGEN ([facility], ) ID Date Data Source [id number] 09/22/2019 12:00:00 AM EST MEDGEN ([facility], ) Name Value Range Interpretation Code Description Data Supporting Source(s) Document(s ) Ferritin, 329 ng/mL Normal (applies to MEDGEN (St Serum non-numeric Juan C's results) Medical, ) ID Date Data Source [id number] 09/22/2019 12:00:00 AM EST MEDGEN ([facility], ) Name Value Range Interpretation Description Data Sup porting Code Source(s) Document(s ) Deprecated 4.8 mg/dL Above high normal MEDGEN (St Phosphorus Juan C's [Mass/time] in [facility], ) 24 hour Urine ID Date Data Source [id number] 09/22/2019 12:00:00 AM EST MEDGEN ([facility], ) Name Value Range Interpretation Code Description Data Lisa rce(s) Supporting Document(s ) ID Date Data Source [id number] 09/22/2019 12:00:00 AM EST MEDGEN ([facility], ) Name Value Range Interpretation Description Data Sup porting Code Source(s) Document(s ) Vitamin D, 36.2 Normal (applies to MEDGEN (St 25-Hydroxy ng/mL non-numeric Juan C's results) Medical, ) ID Date Data Source [id number] 09/22/2019 12:00:00 AM EST MEDGEN ([facility], ) Name Value Range Interpretation Code Description Data Supporting Source(s) Document(s ) Albumin, 693.2 Normal (applies to MEDGEN (St Urine ug/mL non-numeric Juan C's results) [facility], ) Alb/Creat 394.1 mg/g Above high normal MEDGEN (St Ratio creat [facility], ) ID Date Data Source [id number] 09/22/2019 12:00:00 AM EST MEDGEN ([facility], ) Name Value Range Interpretation Description Data Sup porting Code Source(s) Document(s ) Free [place] 476.00 Above high normal MEDGEN (St Lt mg/L [facility], ) Free Lambda 44.50 mg/L Above high normal MEDGEN (S t Lt Juan C's [facility], PC) [place] 10.70 Above high normal MEDGEN (St a Ratio,U [facility], ) ID Date Data Source [id number] 09/22/2019 12:00:00 AM EST MEDGEN (St Julienne 's [facility], ) Name Value Range Interpretation Description Data Sup porting Code Source(s) Document(s ) Free [place] 38.9 mg/L Above high normal MEDGEN (St Lt Chains,S [facility], ) [place] 0.29 Normal (applies to MEDGEN (S t a Ratio,S non-numeric Juan C's results) [facility], ) Free Lambda 133.0 mg/L Above high normal MEDGEN (S t Lt Chains,S [facility], ) ID Date Data Source [id number] 09/22/2019 12:00:00 AM EST MEDGEN ([facility], ) Name Value Range Interpretation Code Description Data Supporting Source(s) Document(s ) Creatinine 175.9 Normal (applies to MEDGEN (St , Urine mg/dL non-numeric Juan C's results) [facility], ) Protein/Cr 833 mg/g Above high normal MEDGEN (St eat Ratio creat [facility], ) ID Date Data Source [id number] 09/22/2019 12:00:00 AM EST MEDGEN (St [facility], ) Name Value Range Interpretation Description Data Sup porting Code Source(s) Document(s ) Immunoglobulin A, 25 mg/dL Below low normal MEDGE N (St Qn, Serum [facility], ) Immunoglobulin G, 3973 Above high normal MEDG EN (St Qn, Serum mg/dL [facility], ) Immunoglobulin M, 13 mg/dL Below low normal MEDGE N (St Qn, Serum [facility], ) ID Date Data Source [id number] 09/22/2019 12:00:00 AM EST MEDGEN (St [facility], ) Name Value Range Interpretation Description Data Sup porting Code Source(s) Document(s ) Iron 297 ug/dL Normal (applies to MEDGEN (St Bind.Cap.(TIBC non-numeric Juan C's ) results) [facility], ) UIBC 222 ug/dL Normal (applies to MEDGEN (St non-numeric Juan C's results) [facility], ) Iron 75 ug/dL Normal (applies to MEDGEN (St [Mass/volume] non-numeric Juan C's in Serum or results) [facility], ) Plasma Iron 25 % Normal (applies to MEDGEN (St saturation non-numeric Juan C's [Mass results) [facility], ) Fraction] in Serum or Plasma ID Date Data Source [id number] 09/22/2019 12:00:00 AM EST MEDGEN ([facility], ) Name Value Range Interpretation Code Description Data Supporting Source(s) Document(s ) Protein,To 146.6 Normal (applies to MEDGEN (St ruth,Urine mg/dL non-numeric Juan C's results) [facility], ) Alpha-1-Gl 3.5 % Normal (applies to MEDGEN (St obulin, U non-numeric Juan C's results) [facility], ) Albumin, U 47.8 % Normal (applies to MEDGEN (St non-numeric Juan C's results) [facility], ) Alpha-2-Gl 9.6 % Normal (applies to MEDGEN (St obulin, U non-numeric Juan C's results) [facility], ) Beta 24.4 % Normal (applies to MEDGEN (St Globulin, non-numeric Juan C's U results) [facility], ) Gamma 14.8 % Normal (applies to MEDGEN (St Globulin, non-numeric Juan C's U results) [facility], ) PDF . Normal (applies to MEDGEN (St non-numeric Juan C's results) [facility], ) M-Kevyn, % 9.8 % Above high normal MEDGEN ([facility], ) ID Date Data Source [id number] 09/22/2019 12:00:00 AM EST MEDGEN ([facility], ) Name Value Range Interpretation Description Data Sup porting Code Source(s) Document(s ) Protein 9.0 g/dL Above high normal MEDGEN (St [Mass/volume] in Juan C's Serum or Plasma [facility], ) Microalbumin 4.0 g/dL Normal (applies MEDGEN (St [Mass/time] in to non-numeric Juan C's Urine collected results) Medical, for unspecified PC) duration Xpvez-0-Fdtzoqze 0.2 g/dL Normal (applies MEDGEN (St to non-numeric Juan C's results) Medical, PC) Pttds-9-Qqprehco 0.8 g/dL Normal (applies MEDGEN (St to non-numeric Juan C's results) Medical, PC) Beta globulin 0.8 g/dL Normal (applies MEDGEN (St [Mass/volume] in to non-numeric Juan C's Urine by results) Medical, Electrophoresis PC) Gamma globulin 3.2 g/dL Above high normal MEDGEN (St [Mass/volume] by [facility] Electrophoresis in Medical, Urine collected PC) for unspecified duration M-Kevyn 2.9 g/dL Above high normal MEDGEN ([facility], ) Globulin, Total 5.0 g/dL Above high normal MEDGEN ([facility], ) A/G Ratio 0.8 Normal (applies MEDGEN (St to non-numeric Juan C's results) Medical, PC) PDF . Normal (applies MEDGEN (St to non-numeric Juan C's results) Medical, ) ID Date Data Source [id number] 09/22/2019 12:00:00 AM EST MEDGEN ([facility], ) Name Value Range Interpretation Description [...] results) Medical, ) ID Date Data Source [id number] 09/22/2019 12:00:00 AM EST MEDGEN ([facility], ) Name Value Range Interpretation Description [...] by Light microscopy ID Date Data Source [id number] 09/22/2019 12:00:00 AM EST MEDGEN ([facility], ) Name Value Range Interpretation Description Data Sup porting Code Source(s) Document(s ) Leukocytes 9.5 Normal (applies MEDGEN (St [#/volume] in x10E3/uL to non-numeric Juan C's Blood by results) [facility]) Automated count Erythrocytes 3.28 Below low normal MEDGEN (St [#/volume] in x10E6/uL Juan C's Blood by [facility]) Automated count Hematocrit 32.1 % Below low normal MEDGEN (St [Volume Juan C's Fraction] of [facility]) Blood by Automated count Hemoglobin 10.9 Below low normal MEDGEN (St [Mass/volume] in g/dL Juan C's Blood [facility]) MCV 98 fL Above high normal [facility] ([facility], ) MCH 33.2 pg Above high normal [facility], ) MCHC 34.0 Normal (applies MEDGEN (St g/dL to non-numeric Juan C's results) [facility]) RDW 17.3 % Above high normal [facility] ([facility], ) Platelets 240 Normal (applies MEDGEN (St [#/area] in x10E3/uL to non-numeric Juan C's Blood by results) [facility]) Microscopy high power field Neutrophils [#] 53 % Normal (applies MEDGEN ( St in Body fluid by to non-numeric Juan C's Manual count results) [facility]) Lymphs 19 % Normal (applies MEDGEN (St to non-numeric Juan C's results) [facility]) Eos 11 % Normal (applies MEDGEN (St to non-numeric Juan C's results) [facility]) Monocytes 15 % Normal (applies MEDGEN (St [#/volume] in to non-numeric Juan C's Cord blood results) [facility]) Neutrophils 5.1 Normal (applies MEDGEN (St (Absolute) x10E3/uL to non-numeric Juan C's results) [facility]) Basos 0 % Normal (applies MEDGEN (St to non-numeric Juan C's results) [facility]) Lymphs 1.8 Normal (applies MEDGEN (St (Absolute) x10E3/uL to non-numeric Juan C's results) [facility]) Eos (Absolute) 1.0 Above high normal MEDGEN (St x10E3/uL [facility]) Monocytes(Absolu 1.5 Above high normal MEDGE N (St te) x10E3/uL [facility]) Baso (Absolute) 0.0 Normal (applies MEDGEN ( St x10E3/uL to non-numeric Juan C's results) Medical, ) Immature Grans 0.2 Above high normal MEDGEN (St (Abs) x10E3/uL Juan C's [facility], ) Immature 2 % Normal (applies MEDGEN (St Granulocytes to non-numeric Juan C's results) Medical, ) Hematology Note: Normal (applies MEDGEN (St Comments: to non-numeric Juan C's results) Medical, ) ID Date Data Source [id number] 09/22/2019 12:00:00 AM EST MEDGEN ([facility], ) Name Value Range Interpretation Code Description Data Lisa rce(s) Supporting Document(s ) ID Date Data Source [id number] 09/22/2019 12:00:00 AM EST MEDGEN ([facility], ) Name Value Range Interpretation Code Description Data Supporting Source(s) Document(s ) PTH, Intact 14 pg/mL Below low normal [facility] ([facility], ) ID Date Data Source [id number] 09/22/2019 12:00:00 AM EST MEDGEN ([facility], ) Name Value Range Interpretation Code Description Data Supporting Source(s) Document(s ) Ferritin, 329 ng/mL Normal (applies to MEDGEN (St Serum non-numeric Juan C's results) [facility], ) ID Date Data Source [id number] 09/22/2019 12:00:00 AM EST [facility]GEN ([facility], ) Name Value Range Interpretation Description Data Sup porting Code Source(s) Document(s ) Deprecated 4.8 mg/dL Above high normal MEDGEN (St Phosphorus Juan C's [Mass/time] in Medical, ) 24 hour Urine ID Date Data Source [id number] 09/22/2019 12:00:00 AM EST [facility]GEN ([facility], ) Name Value Range Interpretation Code Description Data Lisa rce(s) Supporting Document(s ) ID Date Data Source [id number] 09/22/2019 12:00:00 AM EST [facility]GEN ([facility], ) Name Value Range Interpretation Description Data Sup porting Code Source(s) Document(s ) Vitamin D, 36.2 Normal (applies to MEDGEN (St 25-Hydroxy ng/mL non-numeric Juan C's results) Medical, ) ID Date Data Source [id number] 09/22/2019 12:00:00 AM EST MEDGEN ([facility]) Name Value Range Interpretation Code Description Data Supporting Source(s) Document(s ) Albumin, 693.2 Normal (applies to MEDGEN (St Urine ug/mL non-numeric Juan C's results) Medical, ) Alb/Creat 394.1 mg/g Above high normal MEDGEN (St Ratio creat Juan C's [facility], PC) ID Date Data Source [id number] 09/22/2019 12:00:00 AM EST MEDGEN ([facility], [facility]) Name Value Range Interpretation Description Data Sup porting Code Source(s) Document(s ) Free [place] 476.00 Above high normal MEDGEN (St Lt mg/L [facility], PC) Free Lambda 44.50 mg/L Above high normal MEDGEN (S t Lt Juan C's [facility], PC) [place] 10.70 Above high normal MEDGEN (St a Ratio,U [facility], ) ID Date Data Source [id number] 09/22/2019 12:00:00 AM EST MEDGEN ([facility], [facility]) Name Value Range Interpretation Description Data Sup porting Code Source(s) Document(s ) Free [place] 38.9 mg/L Above high normal MEDGEN (St Lt Chains,S [facility], PC) Free Lambda 133.0 mg/L Above high normal MEDGEN (S t Lt Chains,S [facility], PC) [place] 0.29 Normal (applies to MEDGEN (S t a Ratio,S non-numeric Juan C's results) Medical, ) ID Date Data Source [id number] 09/22/2019 12:00:00 AM EST MEDGEN ([facility]) Name Value Range Interpretation Code Description Data Supporting Source(s) Document(s ) Creatinine 175.9 Normal (applies to MEDGEN (St , Urine mg/dL non-numeric Juan C's results) Medical, ) Protein/Cr 833 mg/g Above high normal MEDGEN (St eat Ratio creat Juan C's [facility], ) ID Date Data Source [id number] 09/22/2019 12:00:00 AM EST MEDGEN ([facility], ) Name Value Range Interpretation Description Data Sup porting Code Source(s) Document(s ) Immunoglobulin G, 3973 Above high normal MEDG EN (St Qn, Serum mg/dL [facility]) Immunoglobulin A, 25 mg/dL Below low normal MEDGE N (St Qn, Serum [facility]) Immunoglobulin M, 13 mg/dL Below low normal MEDGE N (St Qn, Serum [facility]) ID Date Data Source [id number] 09/22/2019 12:00:00 AM EST [facility] ([facility] ) Name Value Range Interpretation Description Data Sup porting Code Source(s) Document(s ) Iron 297 ug/dL Normal (applies to MEDGEN (St Bind.Cap.(TIBC non-numeric Juan C's ) results) [facility]) Iron 75 ug/dL Normal (applies to MEDGEN (St [Mass/volume] non-numeric Juan C's in Serum or results) [facility]) Plasma UIBC 222 ug/dL Normal (applies to MEDGEN (St non-numeric Juan C's results) [facility]) Iron 25 % Normal (applies to MEDGEN (St saturation non-numeric Juan C's [Mass results) [facility]) Fraction] in Serum or Plasma ID Date Data Source [id number] 09/22/2019 12:00:00 AM EST MEDGEN ([facility] [place] [place]) Name Value Range Interpretation Code Description Data Supporting Source(s) Document(s ) Protein,To 146.6 Normal (applies to MEDGEN (St ruth,Urine mg/dL non-numeric Juan C's results) [facility], ) Albumin, U 47.8 % Normal (applies to MEDGEN (St non-numeric Juan C's results) [facility]) Alpha-1-Gl 3.5 % Normal (applies to MEDGEN (St obulin, U non-numeric Juan C's results) [facility]) Alpha-2-Gl 9.6 % Normal (applies to MEDGEN (St obulin, U non-numeric Juan C's results) [facility]) Beta 24.4 % Normal (applies to MEDGEN (St Globulin, non-numeric Juan C's U results) [facility]) Gamma 14.8 % Normal (applies to MEDGEN (St Globulin, non-numeric Juan C's U results) [facility], ) M-Kevyn, % 9.8 % Above high normal MEDGEN ([facility], ) PDF . Normal (applies to MEDGEN (St non-numeric Juan C's results) [facility]) ID Date Data Source [id number] 09/22/2019 12:00:00 AM EST [facility] Name Value Range Interpretation Description Data Sup porting Code Source(s) Document(s ) Protein 9.0 g/dL Above high normal MEDGEN (St [Mass/volume] in Juan C's Serum or Plasma [facility], ) Microalbumin 4.0 g/dL Normal (applies MEDGEN (St [Mass/time] in to non-numeric Juan C's Urine collected results) [facility], for unspecified PC) duration Fgddr-4-Kjhwcqkr 0.2 g/dL Normal (applies MEDGEN (St to non-numeric Juan C's results) [facility], ) Beta globulin 0.8 g/dL Normal (applies MEDGEN (St [Mass/volume] in to non-numeric Juan C's Urine by results) [facility], Electrophoresis ) Bmrrh-6-Whslmzgm 0.8 g/dL Normal (applies MEDGEN (St to non-numeric Juan C's results) [facility], ) Gamma globulin 3.2 g/dL Above high normal MEDGEN (St [Mass/volume] by Juan C's Electrophoresis in Medical, Urine collected PC) for unspecified duration M-Kevyn 2.9 g/dL Above high normal MEDGEN ([facility], ) Globulin, Total 5.0 g/dL Above high normal MEDGEN ([facility], ) PDF . Normal (applies MEDGEN (St to non-numeric Juan C's results) [facility], ) A/G Ratio 0.8 Normal (applies MEDGEN (St to non-numeric Juan C's results) [facility], ) ID Date Data Source [id number] 09/22/2019 12:00:00 AM EST [facility], ) Name Value Range Interpretation Description [...] results) Medical, ) ID Date Data Source [id number] 09/22/2019 12:00:00 AM EST MEDGEN (St Julienne [...] (St Oxalate to non-numeric Juan C's results) [facility], ) Crystals Present Abnormal (applies MEDGEN (St [#/area] in to non-numeric Juan C's Body fluid by results) [facility], ) Light microscopy Mucus Threads Present Normal (applies MEDGEN (St to non-numeric Juan C's results) [facility], ) Bacteria Few Normal (applies MEDGEN (St [Presence] in to non-numeric Juan C's Prostatic results) [facility]) fluid by Light microscopy ID Date Data Source [id number] 09/22/2019 12:00:00 AM EST MEDGEN ([facility], ) Name Value Range Interpretation Description Data Sup porting Code Source(s) Document(s ) Leukocytes 9.5 Normal (applies MEDGEN (St [#/volume] in x10E3/uL to non-numeric Juan C's Blood by results) [facility], ) Automated count Erythrocytes 3.28 Below low normal MEDGEN (St [#/volume] in x10E6/uL Juan C's Blood by [facility], ) Automated count Hemoglobin 10.9 Below low normal MEDGEN (St [Mass/volume] in g/dL Juan C's Blood [facility], ) Hematocrit 32.1 % Below low normal MEDGEN (St [Volume Juan C's Fraction] of [facility]) Blood by Automated count MCV 98 fL Above high normal MEDGEN ([facility], ) MCHC 34.0 Normal (applies MEDGEN (St g/dL to non-numeric Juan C's results) [facility]) MCH 33.2 pg Above high normal MEDGEN ([facility], ) RDW 17.3 % Above high normal MEDGEN ([facility], ) Neutrophils [#] 53 % Normal (applies MEDGEN ( St in Body fluid by to non-numeric Juan C's Manual count results) [facility]) Platelets 240 Normal (applies MEDGEN (St [#/area] in x10E3/uL to non-numeric [facility]'s Blood by results) [facility]) Microscopy high power field Monocytes 15 % Normal (applies MEDGEN (St [#/volume] in to non-numeric Juan C's Cord blood results) [facility]) Lymphs 19 % Normal (applies MEDGEN (St to non-numeric Juan C's results) [facility]) Eos 11 % Normal (applies MEDGEN (St [...] high normal MEDGEN (St x10E3/uL Juan C's [facility], ) Baso (Absolute) 0.0 Normal (applies MEDGEN ( St x10E3/uL to non-numeric Juan [facility]'s results) Medical, ) Immature 2 % Normal (applies MEDGEN (St Granulocytes to non-numeric Juan C's results) Medical, ) Hematology Note: Normal (applies MEDGEN (St Comments: to non-numeric Juan C's results) Medical, ) Immature Grans 0.2 Above high normal MEDGEN (St (Abs) x10E3/uL Juan C's [facility], ) ID Date Data Source [id number] 09/22/2019 12:00:00 AM EST MEDGEN ([facility], ) Name Value Range Interpretation Code Description Data Supporting Source(s) Document(s ) Ferritin, 329 ng/mL Normal (applies to MEDGEN (St Serum non-numeric Juan C's results) [facility], ) ID Date Data Source [id number] 09/22/2019 12:00:00 AM EST MEDGEN ([facility], ) Name Value Range Interpretation Description Data Sup porting Code Source(s) Document(s ) Deprecated 4.8 mg/dL Above high normal MEDGEN (St Phosphorus Juan C's [Mass/time] in Medical, ) 24 hour Urine ID Date Data Source [id number] 09/22/2019 12:00:00 AM EST [facility]GEN ([facility], ) Name Value Range Interpretation Code Description Data Lisa rce(s) Supporting Document(s ) ID Date Data Source [id number] 09/22/2019 12:00:00 AM EST [facility] ([facility] Name Value Range Interpretation Description Data Sup porting Code Source(s) Document(s ) Vitamin D, 42.8 Normal (applies to MEDGEN (St 25-Hydroxy ng/mL non-numeric Juan [facility]'s results) Medical, ) Vitamin D, 36.2 Normal (applies to MEDGEN (St 25-Hydroxy ng/mL non-numeric [facility]'s results) Medical, ) ID Date Data Source [id number] 09/22/2019 12:00:00 AM EST [facility] ([facility] Name Value Range Interpretation Code Description Data Supporting Source(s) Document(s ) Albumin, 693.2 Normal (applies to MEDGEN (St Urine ug/mL non-numeric [facility]'s results) Medical, ) Alb/Creat 394.1 mg/g Above high normal MEDGEN (St Ratio creat [facility], ) ID Date Data Source [id number] 09/22/2019 12:00:00 AM EST [facility] ([facility], ) Name Value Range Interpretation Description Data Sup porting Code Source(s) Document(s ) Free Lambda 44.50 mg/L Above high normal MEDGEN (S t Lt [facility]) Free [place] 476.00 Above high normal MEDGEN (St Lt mg/L [facility]) [place] 10.70 Above high normal MEDGEN (St a Ratio,U [facility], ) ID Date Data Source [id number] 09/22/2019 12:00:00 AM EST [facility] ([facility] Name Value Range Interpretation Description Data Sup porting Code Source(s) Document(s ) Free [place] 38.9 mg/L Above high normal MEDGEN (St Lt [facility],S [facility]) Free Lambda 133.0 mg/L Above high normal MEDGEN (S t Lt [facility],S [facility]) [place] 0.29 Normal (applies to MEDGEN (S t a Ratio,S non-numeric [facility] C's results) Medical, ) ID Date Data Source [id number] 09/22/2019 12:00:00 AM EST [facility] ([facility] Name Value Range Interpretation Code Description Data Supporting Source(s) Document(s ) Creatinine 175.9 Normal (applies to MEDGEN (St , Urine mg/dL non-numeric [facility]'s results) [facility]) Protein/Cr 833 mg/g Above high normal MEDGEN (St eat Ratio creat [facility]) ID Date Data Source [id number] 09/22/2019 12:00:00 AM EST MEDGEN ([facility] [place] [place]) Name Value Range Interpretation Description Data Sup porting Code Source(s) Document(s ) Immunoglobulin G, 3973 Above high normal MEDG EN (St Qn, Serum mg/dL [facility]) Immunoglobulin M, 13 mg/dL Below low normal MEDGE N (St Qn, Serum [facility]) Immunoglobulin A, 25 mg/dL Below low normal MEDGE N (St Qn, Serum [facility]) ID Date Data Source [id number] 09/22/2019 12:00:00 AM EST MEDGEN ([facility] [place] [place]) Name Value Range Interpretation Description Data Sup porting Code Source(s) Document(s ) Iron 297 ug/dL Normal (applies to MEDGEN (St Bind.Cap.(TIBC non-numeric Juan C's ) results) [facility]) UIBC 222 ug/dL Normal (applies to MEDGEN (St non-numeric Juan C's results) [facility]) Iron 75 ug/dL Normal (applies to MEDGEN (St [Mass/volume] non-numeric Juan C's in Serum or results) [facility]) Plasma Iron 25 % Normal (applies to MEDGEN (St saturation non-numeric Juan C's [Mass results) [facility]) Fraction] in Serum or Plasma ID Date Data Source [id number] 09/22/2019 12:00:00 AM EST MEDGEN ([facility]) Name Value Range Interpretation Code Description Data Supporting Source(s) Document(s ) Protein,To 146.6 Normal (applies to MEDGEN (St ruth,Urine mg/dL non-numeric Juan C's results) [facility]) Albumin, U 47.8 % Normal (applies to MEDGEN (St non-numeric Juan C's results) [facility]) Alpha-2-Gl 9.6 % Normal (applies to MEDGEN (St obulin, U non-numeric Juan C's results) [facility]) Alpha-1-Gl 3.5 % Normal (applies to MEDGEN (St obulin, U non-numeric [facility] C's results) Medical, ) Gamma 14.8 % Normal (applies to MEDGEN (St Globulin, non-numeric Juan C's U results) Medical, ) Beta 24.4 % Normal (applies to MEDGEN (St Globulin, non-numeric [facility]'s U results) Medical, ) M-Kevyn, % 9.8 % Above high normal MEDGEN ([facility], ) PDF . Normal (applies to MEDGEN (St non-numeric Juan C's results) Medical, ) ID Date Data Source [id number] 09/22/2019 12:00:00 AM EST MEDGEN ([facility], ) Name Value Range Interpretation Description Data Sup porting Code Source(s) Document(s ) Protein 9.0 g/dL Above high normal MEDGEN (St [Mass/volume] in Juan C's Serum or Plasma Medical, ) Microalbumin 4.0 g/dL Normal (applies MEDGEN (St [Mass/time] in to non-numeric Juan C's Urine collected results) [facility], for unspecified PC) duration Ckumq-9-Psxcazkt 0.2 g/dL Normal (applies MEDGEN (St to non-numeric Juan C's results) Medical, ) Xerwx-0-Qevatuoi 0.8 g/dL Normal (applies MEDGEN (St to non-numeric [facility] C's results) Medical, ) Gamma globulin 3.2 g/dL Above high normal MEDGEN (St [Mass/volume] by Juan C's Electrophoresis in Medical, Urine collected PC) for unspecified duration Beta globulin 0.8 g/dL Normal (applies MEDGEN (St [Mass/volume] in to non-numeric Juan C's Urine by results) Medical, Electrophoresis PC) Globulin, Total 5.0 g/dL Above high normal MEDGEN ([facility], ) M-Kevyn 2.9 g/dL Above high normal MEDGEN ([facility], ) A/G Ratio 0.8 Normal (applies MEDGEN (St to non-numeric Juan C's results) Medical, ) PDF . Normal (applies MEDGEN (St to non-numeric [facility] C's results) Medical, ) ID Date Data Source [id number] 09/22/2019 12:00:00 AM EST MEDGEN (St [facility] [...] results) Medical, PC) ID Date Data Source [id number] 09/22/2019 12:00:00 AM EST [facility] ([facility], ) Name Value Range Interpretation Description Data Sup porting Code Source(s) Document(s ) RBC 0-2 Normal (applies MEDGEN (St to non-numeric [facility] C's results) Medical, PC) WBC 0-5 Normal (applies MEDGEN (St to non-numeric [facility] C's results) [facility], PC) Epithelial None seen Normal (applies MEDGEN (St Cells (non to non-numeric Juan C's renal) results) [facility], ) Casts Present Abnormal (applies MEDGEN (St [#/area] in to non-numeric Juan C's Urine results) [facility], ) sediment by Automated count Cast Type Granular Abnormal (applies MEDGEN (St casts to non-numeric Juan C's results) [facility], ) Crystal Type Calcium Normal (applies MEDGEN (St Oxalate to non-numeric Juan C's results) [facility], ) Crystals Present Abnormal (applies MEDGEN (St [#/area] in to non-numeric Juan C's Body fluid by results) [facility], ) Light microscopy Bacteria Few Normal (applies MEDGEN (St [Presence] in to non-numeric Juan C's Prostatic results) [facility], ) fluid by Light microscopy Mucus Threads Present Normal (applies MEDGEN (St to non-numeric Juan C's results) [facility], ) ID Date Data Source [id number] 09/22/2019 12:00:00 AM EST MEDGEN ([facility], ) Name Value Range Interpretation Description Data Sup porting Code Source(s) Document(s ) Erythrocytes 3.28 Below low normal MEDGEN (St [#/volume] in x10E6/uL Juan C's Blood by [facility], ) Automated count Leukocytes 11.8 Above high normal MEDGEN (St [#/volume] in x10E3/uL Juan C's Blood by [facility], ) Automated count Hematocrit 31.7 % Below low normal MEDGEN (St [Volume Juan C's Fraction] of [facility], ) Blood by Automated count Hemoglobin 10.8 Below low normal MEDGEN (St [Mass/volume] in g/dL Juan C's Blood [facility], ) MCV 97 fL Normal (applies MEDGEN (St to non-numeric Juan C's results) [facility], ) MCHC 34.1 Normal (applies MEDGEN (St g/dL to non-numeric Juan C's results) [facility], ) MCH 32.9 pg Normal (applies MEDGEN (St to non-numeric Juan C's results) [facility], ) Platelets 237 Normal (applies MEDGEN (St [#/area] in x10E3/uL to non-numeric Juan C's Blood by results) [facility], ) Microscopy high power field RDW 17.5 % Above high normal [facility]GEN ([facility], ) Lymphs 20 % Normal (applies MEDGEN (St to non-numeric Juan C's results) [facility]) Neutrophils [#] 53 % Normal (applies MEDGEN ( St in Body fluid by to non-numeric Juan C's Manual count results) [facility]) Monocytes 13 % Normal (applies MEDGEN (St [#/volume] in to non-numeric Juan C's Cord blood results) [facility]) Basos 1 % Normal (applies MEDGEN (St to non-numeric Juan C's results) [facility]) Eos 12 % Normal (applies MEDGEN (St to non-numeric Juan C's results) [facility]) Lymphs 2.4 Normal (applies MEDGEN (St (Absolute) x10E3/uL to non-numeric Juan C's results) [facility], ) Neutrophils 6.2 Normal (applies MEDGEN (St (Absolute) x10E3/uL to non-numeric Juan C's results) [facility], ) Eos (Absolute) 1.5 Above high normal MEDGEN (St x10E3/uL Juan C's [facility], ) Monocytes(Absolu 1.5 Above high normal MEDGE N (St te) x10E3/uL [facility], ) Baso (Absolute) 0.1 Normal (applies MEDGEN ( St x10E3/uL to non-numeric Juan C's results) [facility], ) Immature 1 % Normal (applies MEDGEN (St Granulocytes to non-numeric Juan C's results) [facility]) Immature Grans 0.2 Above high normal MEDGEN (St (Abs) x10E3/uL [facility], ) Hematology Note: Normal (applies MEDGEN (St Comments: to non-numeric Juan C's results) [facility], ) Leukocytes 9.5 Normal (applies MEDGEN (St [#/volume] in x10E3/uL to non-numeric Juan C's Blood by results) [facility], ) Automated count Hemoglobin 10.9 Below low normal MEDGEN (St [Mass/volume] in g/dL Juan C's Blood [facility], ) Erythrocytes 3.28 Below low normal MEDGEN (St [#/volume] in x10E6/uL Juan C's Blood by [facility], ) Automated count Hematocrit 32.1 % Below low normal MEDGEN (St [Volume Juan C's Fraction] of [facility], ) Blood by Automated count MCV 98 fL Above high normal MEDGEN ([facility], ) MCH 33.2 pg Above high normal MEDGEN ([place], ) RDW 17.3 % Above high normal MEDGEN ([place], ) MCHC 34.0 Normal (applies MEDGEN (St g/dL to non-numeric Juan C's results) [facility]) Platelets 240 Normal (applies MEDGEN (St [#/area] in x10E3/uL to non-numeric Juan C's Blood by results) [facility]) Microscopy high power field Neutrophils [#] 53 % Normal (applies MEDGEN ( St in Body fluid by to non-numeric Juan C's Manual count results) [facility]) Lymphs 19 % Normal (applies MEDGEN (St to non-numeric Juan C's results) [facility]) Monocytes 15 % Normal (applies MEDGEN (St [#/volume] in to non-numeric Juan C's Cord blood results) [facility]) Basos 0 % Normal (applies MEDGEN (St to non-numeric Juan C's results) [facility]) Eos 11 % Normal (applies MEDGEN (St to non-numeric Juan C's results) [facility]) Lymphs 1.8 Normal (applies MEDGEN (St (Absolute) x10E3/uL to non-numeric Juan C's results) [facility]) Neutrophils 5.1 Normal (applies MEDGEN (St (Absolute) x10E3/uL to non-numeric Juan C's results) [facility]) Monocytes(Absolu 1.5 Above high normal MEDGE N (St te) x10E3/uL [facility]) Eos (Absolute) 1.0 Above high normal MEDGEN (St x10E3/uL [facility], ) Baso (Absolute) 0.0 Normal (applies MEDGEN ( St x10E3/uL to non-numeric Juan C's results) [facility]) Immature Grans 0.2 Above high normal MEDGEN (St (Abs) x10E3/uL [facility]) Immature 2 % Normal (applies MEDGEN (St Granulocytes to non-numeric Juan C's results) [facility]) Hematology Note: Normal (applies MEDGEN (St Comments: to non-numeric Juan C's results) [facility]) ID Date Data Source [id number] 08/27/2019 12:00:00 AM EST MEDGEN ([facility], ) Name Value Range Interpretation Description Data Sup porting Code Source(s) Document(s ) No Urine Test not Normal (applies to MEDGEN (St Received performed non-numeric Juan C's . results) [facility], ) ID Date Data Source [id number] 08/27/2019 12:00:00 AM EST MEDGEN ([facility], ) Name Value Range Interpretation Description Data Sup porting Code Source(s) Document(s ) Vitamin D, 42.8 Normal (applies to MEDGEN (St 25-Hydroxy ng/mL non-numeric Juan C's results) Medical, ) ID Date Data Source [id number] 08/27/2019 12:00:00 AM EST MEDGEN ([facility], ) Name Value Range Interpretation Description Data Sup porting Code Source(s) Document(s ) Hemoglobin 6.2 % Above high normal MEDGEN (St A1c/Hemoglobin. Juan C's total in Blood [facility], ) ID Date Data Source [id number] 08/27/2019 12:00:00 AM EST MEDGEN ([facility], ) Name Value Range Interpretation Description Data Sup porting Code Source(s) Document(s ) Vitamin B12 385 pg/mL Normal (applies to MEDGEN (S t non-numeric Juan C's results) [facility], ) Folate 10.5 Normal (applies to MEDGEN (St (Folic ng/mL non-numeric Juan C's Acid), Serum results) [facility], ) ID Date Data Source [id number] 08/27/2019 12:00:00 AM EST MEDGEN ([facility], ) Name Value Range Interpretation Description Data Sup porting Code Source(s) Document(s ) Cholesterol 80 mg/dL Below low normal MEDGEN (St [Mass/volume] in Juan C's Serum or Plasma [facility], ) Triglyceride 200 Above high normal MEDGEN (S t [Mass/volume] in mg/dL Juan C's Serum or Plasma [facility], ) HDL Cholesterol 25 mg/dL Below low normal [facility] ([facility], ) VLDL Cholesterol 40 mg/dL Normal (applies MEDGEN (St Nils to non-numeric Juan C's results) [facility], ) LDL Cholesterol 15 mg/dL Normal (applies MEDGEN ( St Calc to non-numeric Juan C's results) [facility], ) ID Date Data Source [id number] 08/27/2019 12:00:00 AM EST [facility] ([facility] ) Name Value Range Interpretation [...] results) Medical, ) ID Date Data Source [id number] 08/27/2019 12:00:00 AM EST [facility] ([facility], ) Name Value Range Interpretation Description Data Sup porting Code Source(s) Document(s ) Glucose 87 mg/dL Normal (applies MEDGEN (St [Mass/volume] in to non-numeric Juan C's Urine collected for results) [facility] duration Urea nitrogen 36 mg/dL Above high MEDGEN (St [Mass/volume] in normal Juan C's Serum or Plasma [facility], ) eGFR If NonAfricn 21 Below low normal MEDGE N (St Am mL/min/1 Juan C's .73 [facility], ) Creatinine 2.81 Above high MEDGEN (St [Interpretation] in mg/dL normal Juan C's Urine [facility], ) eGFR If Africn Am 24 Below low normal MEDGE N (St mL/min/1 Juan C's .73 [facility], ) BUN/Creatinine 13 Normal (applies MEDGEN (S t Ratio to non-numeric Juan C's results) [facility], ) Sodium 135 Normal (applies MEDGEN [...] non-numeric Juan C's Urine collected for results) [facility], unspecified ) duration Protein 9.0 g/dL Above high MEDGEN (St [Mass/volume] in normal Juan C's Serum or Plasma Medical, ) Microalbumin 4.2 g/dL Normal (applies MEDGEN (St [Mass/time] in to non-numeric [facility] C's Urine collected for results) [facility], unspecified ) duration Globulin, Total 4.8 g/dL Above high MEDGEN (St normal [facility], ) A/G Ratio 0.9 Below low normal MEDGEN ([facility], ) Bilirubin.total 0.3 Normal (applies MEDGEN ( [...] Serum or Plasma ID Date Data Source [id number] 08/27/2019 12:00:00 AM EST MEDGEN (St [facility], ) Name Value Range Interpretation Description Data Sup porting Code Source(s) Document(s ) Leukocytes 11.8 Above high normal MEDGEN (St [#/volume] in x10E3/uL Juan C's Blood by [facility], ) Automated count Erythrocytes 3.28 Below low normal MEDGEN (St [#/volume] in x10E6/uL Juan C's Blood by [facility], ) Automated count Hemoglobin 10.8 Below low normal MEDGEN (St [Mass/volume] in g/dL Juan C's Blood [facility], ) MCV 97 fL Normal (applies MEDGEN (St to non-numeric Juan C's results) [facility], ) Hematocrit 31.7 % Below low normal MEDGEN (St [Volume Juan C's Fraction] of [facility], ) Blood by Automated count MCH 32.9 pg Normal (applies MEDGEN (St to non-numeric Juan C's results) [facility], ) MCHC 34.1 Normal (applies MEDGEN (St g/dL to non-numeric Juan C's results) [facility], ) RDW 17.5 % Above high normal [facility]GEN ([facility], ) Neutrophils [#] 53 % Normal (applies MEDGEN ( St in Body fluid by to non-numeric Juan C's Manual count results) [facility], ) Platelets 237 Normal (applies MEDGEN (St [#/area] in x10E3/uL to non-numeric Juan C's Blood by results) [facility], ) Microscopy high power field Lymphs 20 % Normal (applies MEDGEN (St to non-numeric Juan C's results) [facility], ) Monocytes 13 % Normal (applies MEDGEN (St [#/volume] in to non-numeric Juan C's Cord blood results) [facility], ) Eos 12 % Normal (applies MEDGEN (St to non-numeric Juan C's results) [facility], ) Neutrophils 6.2 Normal (applies MEDGEN (St (Absolute) x10E3/uL to non-numeric Juan C's results) [facility], ) Basos 1 % Normal (applies MEDGEN (St to non-numeric Juan C's results) [facility], ) Lymphs 2.4 Normal (applies MEDGEN (St (Absolute) x10E3/uL to non-numeric Juan C's results) [facility], ) Monocytes(Absolu 1.5 Above high normal MEDGE N (St te) x10E3/uL Juan C's [facility], ) Baso (Absolute) 0.1 Normal (applies MEDGEN ( St x10E3/uL to non-numeric Juan C's results) [facility], ) Eos (Absolute) 1.5 Above high normal MEDGEN (St x10E3/uL Juan C's [facility], ) Immature 1 % Normal (applies MEDGEN (St Granulocytes to non-numeric Juan C's results) Medical, ) Immature Grans 0.2 Above high normal MEDGEN (St (Abs) x10E3/uL Juan C's [facility], ) Hematology Note: Normal (applies MEDGEN (St Comments: to non-numeric Juan C's results) Medical, ) ID Date Data Source [id number] 08/27/2019 12:00:00 AM EST [facility]GEN ([facility], ) Name Value Range Interpretation Code Description Data Lisa rce(s) Supporting Document(s ) TSH 3.560 Normal (applies to MEDGEN (St uIU/mL non-numeric Juan C's results) Medical, ) T4,Free(D 1.22 ng/dL Normal (applies to MEDGEN (St irect) non-numeric Juan C's results) Medical, ) ID Date Data Source [id number] 08/27/2019 12:00:00 AM EST MEDGEN ([facility], ) Name Value Range Interpretation Description Data Sup porting Code Source(s) Document(s ) No Urine Test not Normal (applies to MEDGEN (St Received performed non-numeric Juan C's . results) Medical, ) ID Date Data Source [id number] 08/27/2019 12:00:00 AM EST [facility]GEN ([facility], ) Name Value Range Interpretation Description Data Sup porting Code Source(s) Document(s ) Vitamin D, 42.8 Normal (applies to MEDGEN (St 25-Hydroxy ng/mL non-numeric [facility]'s results) Medical, ) ID Date Data Source [id number] 08/27/2019 12:00:00 AM EST MEDGEN (St [facility], ) Name Value Range Interpretation Description Data Sup porting Code Source(s) Document(s ) Hemoglobin 6.2 % Above high normal MEDGEN (St A1c/Hemoglobin. Juan C's total in Blood [facility], ) ID Date Data Source [id number] 08/27/2019 12:00:00 AM EST [facility] ([facility], ) Name Value Range Interpretation Description Data Sup porting Code Source(s) Document(s ) Vitamin B12 385 pg/mL Normal (applies to [facility]GEN (S t non-numeric Juan C's results) Medical, ) Folate 10.5 Normal (applies to [facility] (St (Folic ng/mL non-numeric Juan C's Acid), Serum results) Medical, ) ID Date Data Source [id number] 08/27/2019 12:00:00 AM EST [facility] ([facility] [place], [place]) Name Value Range Interpretation Description Data Sup porting Code Source(s) Document(s ) Cholesterol 80 mg/dL Below low normal [facility]GEN (St [Mass/volume] in Juan C's Serum or Plasma [facility], ) Triglyceride 200 Above high normal MEDGEN (S t [Mass/volume] in mg/dL Juan C's Serum or Plasma [facility], ) HDL Cholesterol 25 mg/dL Below low normal [facility] ([facility], ) VLDL Cholesterol 40 mg/dL Normal (applies [facility] (St Nils to non-numeric Juan C's results) Medical, ) LDL Cholesterol 15 mg/dL Normal (applies [facility]GEN ( St Calc to non-numeric Juan C's results) [facility], ) ID Date Data Source [id number] 08/27/2019 12:00:00 AM EST [facility] ([facility] [place], [place]) Name Value Range Interpretation Description Data Sup [...] results) Medical, ) ID Date Data Source [id number] 08/27/2019 12:00:00 AM EST [facility] ([facility] [place], [place]) Name Value Range Interpretation Description Data Sup porting Code Source(s) Document(s ) Glucose 87 mg/dL Normal (applies [facility] (St [Mass/volume] in to non-numeric Juan C's Urine collected for results) [facility] ) duration Urea nitrogen 36 mg/dL Above high MEDGEN (St [Mass/volume] in normal Juan C's Serum or Plasma Medical, ) Creatinine 2.81 Above high MEDGEN (St [Interpretation] in mg/dL normal Juan C's Urine [facility], ) eGFR If NonAfricn 21 Below low normal MEDGE N (St Am mL/min/1 [facility]'s .73 [facility], ) BUN/Creatinine 13 Normal (applies MEDGEN (S t Ratio to non-numeric Juan C's results) Medical, ) eGFR If Africn Am 24 Below low normal MEDGE N (St mL/min/1 [facility] .73 [facility], ) Sodium 135 Normal (applies [facility] (St [Moles/volume] in mmol/L to non-numeric Juan C's Serum or Plasma results) Medical, ) Potassium 4.1 Normal (applies [facility] (St [Mass/volume] in mmol/L to non-numeric Juan C's Blood results) Medical, ) Chloride 102 Normal (applies [facility] (St [Moles/volume] in mmol/L to non-numeric Juan C's Serum or Plasma results) [facility], ) Carbon dioxide, 20 Normal (applies [...] Above high MEDGEN (St normal Juan C's [facility], ) A/G Ratio 0.9 Below low normal [facility] ([facility], ) Bilirubin.total 0.3 Normal (applies [facility]GEN ( St [Mass/volume] in mg/dL to non-numeric Juan C's Serum or Plasma results) Medical, ) Alkaline 53 IU/L Normal (applies [facility]GEN (St phosphatase to non-numeric Juan C's [Enzymatic results) [facility], activity/volume] in ) Serum, Plasma or Blood Alanine 20 IU/L Normal (applies [facility]GEN (St aminotransferase to non-numeric Juan C's [Enzymatic results) Medical, activity/volume] in ) Serum or Plasma Aspartate 22 IU/L Normal (applies [facility]GEN (St aminotransferase to non-numeric Juan C's [Enzymatic results) Medical, activity/volume] in ) Serum or Plasma ID Date Data Source [id number] 08/27/2019 12:00:00 AM EST [facility] ([facility], ) Name Value Range Interpretation Description Data Sup porting Code Source(s) Document(s ) Leukocytes 11.8 Above high normal [facility] (St [#/volume] in x10E3/uL Juan C's Blood by [facility], ) Automated count Erythrocytes 3.28 Below low normal [facility] (St [#/volume] in x10E6/uL Juan C's Blood by [facility], ) Automated count Hemoglobin 10.8 Below low normal [facility] (St [Mass/volume] in g/dL Juan C's Blood [facility], ) Hematocrit 31.7 % Below low normal [facility] (St [Volume Juan C's Fraction] of Medical, ) Blood by Automated count MCV 97 fL Normal (applies [facility] (St to non-numeric Juan C's results) [facility], ) MCH 32.9 pg Normal (applies [facility] (St to non-numeric Juan C's results) [facility], ) MCHC 34.1 Normal (applies [facility] (St g/dL to non-numeric Juan C's results) [facility], ) RDW 17.5 % Above high normal [facility] ([facility], ) Platelets 237 Normal (applies [facility]GEN (St [#/area] in x10E3/uL to non-numeric Juan C's Blood by results) Medical, ) Microscopy high power field Neutrophils [#] 53 % Normal (applies [facility]GEN ( St in Body fluid by to non-numeric Juan C's Manual count results) [facility], ) Lymphs 20 % Normal (applies [facility] (St to non-numeric Juan C's results) Medical, ) Monocytes 13 % Normal (applies [facility] (St [#/volume] in to non-numeric Juan C's Cord blood results) [facility], ) Eos 12 % Normal (applies [facility] (St to non-numeric Juan C's results) Medical, ) Neutrophils 6.2 Normal (applies [facility] (St (Absolute) x10E3/uL to non-numeric Juan C's results) [facility], ) Basos 1 % Normal (applies [facility] (St to non-numeric Juan C's results) [facility], ) Lymphs 2.4 Normal (applies [facility] (St (Absolute) x10E3/uL to non-numeric Juan C's results) [facility], ) Monocytes(Absolu 1.5 Above high normal MEDGE N (St te) x10E3/uL Juan C's [facility], ) Eos (Absolute) 1.5 Above high normal [facility] (St x10E3/uL Juan C's [facility], ) Baso (Absolute) 0.1 Normal (applies [facility]GEN ( St x10E3/uL to non-numeric Juan C's results) [facility], ) Immature 1 % Normal (applies [facility]GEN (St Granulocytes to non-numeric Juan C's results) [facility], ) Immature Grans 0.2 Above high normal [facility] (St (Abs) x10E3/uL Juan C's [facility], ) Hematology Note: Normal (applies [facility]GEN (St Comments: to non-numeric Juan C's results) [facility], ) ID Date Data Source [id number] 08/27/2019 12:00:00 AM EST [facility] ([facility], ) Name Value Range Interpretation Code Description Data Lisa rce(s) Supporting Document(s ) TSH 3.560 Normal (applies to [facility] (St uIU/mL non-numeric Juan C's results) [facility], ) T4,Free(D 1.22 ng/dL Normal (applies to [facility] (St irect) non-numeric Juan C's results) [facility], ) ID Date Data Source [id number] 08/27/2019 12:00:00 AM EST [facility] ([facility], ) Name Value Range Interpretation Description Data Sup porting Code Source(s) Document(s ) No Urine Test not Normal (applies to [facility] (St Received performed non-numeric Juan C's . results) [facility]) ID Date Data Source [id number] 08/27/2019 12:00:00 AM EST [facility] ([facility], ) Name Value Range Interpretation Description Data Sup porting Code Source(s) Document(s ) Vitamin D, 42.8 Normal (applies to [facility] (St 25-Hydroxy ng/mL non-numeric Juan C's results) [facility], ) ID Date Data Source [id number] 08/27/2019 12:00:00 AM EST [facility] ([facility], ) Name Value Range Interpretation Description Data Sup porting Code Source(s) Document(s ) Hemoglobin 6.2 % Above high normal [facility] (St A1c/Hemoglobin. Juan C's total in Blood [facility], ) ID Date Data Source [id number] 08/27/2019 12:00:00 AM EST [facility] ([facility], ) Name Value Range Interpretation Description Data Sup porting Code Source(s) Document(s ) Vitamin B12 385 pg/mL Normal (applies to [facility]GEN (S t non-numeric Juan C's results) Medical, ) Folate 10.5 Normal (applies to [facility] (St (Folic ng/mL non-numeric Juan C's Acid), Serum results) [facility], ) ID Date Data Source [id number] 08/27/2019 12:00:00 AM EST [facility] ([facility], ) Name Value Range Interpretation Description Data Sup porting Code Source(s) Document(s ) No Urine Test not Normal (applies to [facility]GEN (St Received performed non-numeric Juan C's . results) [facility], ) ID Date Data Source [id number] 08/27/2019 12:00:00 AM EST [facility] ([facility], ) Name Value Range Interpretation Description Data Sup porting Code Source(s) Document(s ) Vitamin D, 42.8 Normal (applies to [facility] (St 25-Hydroxy ng/mL non-numeric Juan C's results) Medical, ) ID Date Data Source [id number] 08/27/2019 12:00:00 AM EST [facility] ([facility], ) Name Value Range Interpretation Description Data Sup porting Code Source(s) Document(s ) Hemoglobin 6.2 % Above high normal [facility] (St A1c/Hemoglobin. Juan C's total in Blood [facility], ) ID Date Data Source [id number] 08/27/2019 12:00:00 AM EST [facility] ([facility], ) Name Value Range Interpretation Description Data Sup porting Code Source(s) Document(s ) Vitamin B12 385 pg/mL Normal (applies to [facility]GEN (S t non-numeric Juan C's results) Medical, ) Folate 10.5 Normal (applies to [facility]GEN (St (Folic ng/mL non-numeric Juan C's Acid), Serum results) [facility], ) ID Date Data Source [id number] 08/27/2019 12:00:00 AM EST [facility] ([facility], ) Name Value Range Interpretation Description Data Sup porting Code Source(s) Document(s ) Cholesterol 80 mg/dL Below low normal [facility] (St [Mass/volume] in Juan C's Serum or Plasma [facility], ) Triglyceride 200 Above high normal MEDGEN (S t [Mass/volume] in mg/dL Juan C's Serum or Plasma [facility], ) HDL Cholesterol 25 mg/dL Below low normal [facility] ([facility], ) VLDL Cholesterol 40 mg/dL Normal (applies [facility] (St Nils to non-numeric Juan C's results) [facility], ) LDL Cholesterol 15 mg/dL Normal (applies [facility]GEN ( St Calc to non-numeric Juan C's results) [facility], ) ID Date Data Source [id number] 08/27/2019 12:00:00 AM EST [facility] ([facility], ) Name Value Range Interpretation Description Data Sup porting Code Source(s) Document(s ) Specific gravity Test not Normal (applies [facility] (St of Pericardial performe to non-numeric Juan C's fluid by d. results) [facility], ) Refractometry Protein Test not Normal [...] results) Medical, ) ID Date Data Source [id number] 08/27/2019 12:00:00 AM EST [facility] ([facility], ) Name Value Range Interpretation Description Data Sup porting Code Source(s) Document(s ) Glucose 87 mg/dL Normal (applies [facility]GEN (St [Mass/volume] in to non-numeric Juan C's Urine collected for results) Medical, unspecified ) duration Urea nitrogen 36 mg/dL Above high [facility]GEN (St [Mass/volume] in normal Juan C's Serum or Plasma [facility], ) Creatinine 2.81 Above high [facility]GEN (St [Interpretation] in mg/dL normal Juan C's Urine [facility], ) eGFR If NonAfricn 21 Below low normal MEDGE N (St Am mL/min/1 [facility]'s .73 [facility], ) eGFR If Africn Am 24 Below low normal MEDGE N (St mL/min/1 [facility]'s 73 [facility], ) BUN/Creatinine 13 Normal (applies MEDGEN (S t Ratio to non-numeric Juan C's results) [facility], ) Sodium 135 Normal (applies [facility]GEN (St [Moles/volume] in mmol/L to non-numeric Juan C's Serum or Plasma results) [facility], ) Potassium 4.1 Normal (applies [facility]GEN (St [Mass/volume] in mmol/L to non-numeric Juan C's Blood results) [facility], ) Chloride 102 Normal (applies [facility]GEN (St [Moles/volume] in mmol/L to non-numeric Juan C's Serum or Plasma results) [facility], ) Carbon dioxide, 20 Normal (applies [facility]GEN ( St total mmol/L to non-numeric Juan C's [Moles/volume] in results) [facility], Serum or Plasma PC) Calcium 9.8 Normal (applies [facility]GEN (St [Moles/volume] in mg/dL to non-numeric Juan C's Urine collected for results) [facility], unspecified ) duration Protein 9.0 g/dL Above high MEDGEN (St [Mass/volume] in normal Juan C's Serum or Plasma [facility], ) Microalbumin 4.2 g/dL Normal (applies [facility]GEN (St [Mass/time] in to non-numeric Juan C's Urine collected for results) [facility], unspecified ) duration A/G Ratio 0.9 Below low normal [facility] ([facility], ) Globulin, Total 4.8 g/dL Above high MEDGEN (St normal Juan C's [facility], ) Bilirubin.total 0.3 Normal (applies MEDGEN [...] Serum or Plasma ID Date Data Source [id number] 08/27/2019 12:00:00 AM EST [facility] ([facility], ) Name Value Range Interpretation Description Data Sup porting Code Source(s) Document(s ) Leukocytes 11.8 Above high normal [facility]GEN (St [#/volume] in x10E3/uL Juan C's Blood by [facility], ) Automated count Hemoglobin 10.8 Below low normal [facility] (St [Mass/volume] in g/dL Juan C's Blood [facility], ) Erythrocytes 3.28 Below low normal [facility] (St [#/volume] in x10E6/uL Juan C's Blood by [facility], ) Automated count Hematocrit 31.7 % Below low normal [facility]GEN (St [Volume Juan C's Fraction] of [facility], ) Blood by Automated count MCV 97 fL Normal (applies MEDGEN (St to non-numeric Juan C's results) [facility], ) MCH 32.9 pg Normal (applies MEDGEN (St to non-numeric Juan C's results) [facility], ) MCHC 34.1 Normal (applies [facility]GEN (St g/dL to non-numeric Juan C's results) [facility], ) Platelets 237 Normal (applies [facility]GEN (St [#/area] in x10E3/uL to non-numeric Juan C's Blood by results) [facility], ) Microscopy high power field RDW 17.5 % Above high normal [facility] ([facility], ) Neutrophils [#] 53 % Normal (applies MEDGEN ( St in Body fluid by to non-numeric Juan C's Manual count results) [facility], ) Lymphs 20 % Normal (applies [facility]GEN (St to non-numeric Juan C's results) [facility], ) Monocytes 13 % Normal (applies [facility]GEN (St [#/volume] in to non-numeric Juan C's Cord blood results) Medical, ) Eos 12 % Normal (applies [facility]GEN (St to non-numeric Juan C's results) Medical, ) Basos 1 % Normal (applies [facility]GEN (St to non-numeric Juan C's results) [facility], ) Neutrophils 6.2 Normal (applies [facility]GEN (St (Absolute) x10E3/uL to non-numeric Juan C's results) [facility], ) Monocytes(Absolu 1.5 Above high normal MEDGE N (St te) x10E3/uL Juan C's [facility], ) Lymphs 2.4 Normal (applies [facility]GEN (St (Absolute) x10E3/uL to non-numeric Juan C's results) [facility], ) Eos (Absolute) 1.5 Above high normal [facility] (St x10E3/uL Juan C's [facility], ) Baso (Absolute) 0.1 Normal (applies [facility]GEN ( St x10E3/uL to non-numeric Juan C's results) [facility], ) Immature 1 % Normal (applies MEDGEN (St Granulocytes to non-numeric Juan C's results) [facility], ) Immature Grans 0.2 Above high normal [facility] (St (Abs) x10E3/uL Juan C's [facility], ) Hematology Note: Normal (applies MEDGEN (St Comments: to non-numeric Juan C's results) [facility], ) ID Date Data Source [id number] 08/27/2019 12:00:00 AM EST [facility] ([facility], ) Name Value Range Interpretation Code Description Data Lisa rce(s) Supporting Document(s ) TSH 3.560 Normal (applies to [facility]GEN (St uIU/mL non-numeric Juan C's results) [facility], ) T4,Free(D 1.22 ng/dL Normal (applies to [facility]GEN (St irect) non-numeric Juan C's results) [facility], ) ID Date Data Source [id number] 08/27/2019 12:00:00 AM EST [facility] ([facility], ) Name Value Range Interpretation Description Data Sup porting Code Source(s) Document(s ) No Urine Test not Normal (applies to MEDGEN (St Received performed non-numeric Juan C's . results) [facility], ) ID Date Data Source [id number] 08/27/2019 12:00:00 AM EST [facility] ([facility], ) Name Value Range Interpretation Description Data Sup porting Code Source(s) Document(s ) Vitamin D, 42.8 Normal (applies to [facility]GEN (St 25-Hydroxy ng/mL non-numeric Juan C's results) [facility], ) ID Date Data Source [id number] 08/27/2019 12:00:00 AM EST [facility] ([facility], ) Name Value Range Interpretation Description Data Sup porting Code Source(s) Document(s ) Hemoglobin 6.2 % Above high normal MEDGEN (St A1c/Hemoglobin. Juan C's total in Blood [facility], ) ID Date Data Source [id number] 08/27/2019 12:00:00 AM EST [facility] ([facility], ) Name Value Range Interpretation Description Data Sup porting Code Source(s) Document(s ) Vitamin B12 385 pg/mL Normal (applies to MEDGEN (S t non-numeric Juan C's results) [facility], ) Folate 10.5 Normal (applies to MEDGEN (St (Folic ng/mL non-numeric Juan C's Acid), Serum results) [facility], ) ID Date Data Source [id number] 08/27/2019 12:00:00 AM EST [facility] ([facility], ) Name Value Range Interpretation Description Data Sup porting Code Source(s) Document(s ) Triglyceride 200 Above high normal MEDGEN (S t [Mass/volume] in mg/dL Juan C's Serum or Plasma [facility], ) Cholesterol 80 mg/dL Below low normal [facility] (St [Mass/volume] in Juan C's Serum or Plasma [facility], ) HDL Cholesterol 25 mg/dL Below low normal [facility] ([facility], ) VLDL Cholesterol 40 mg/dL Normal (applies [facility]GEN (St Nils to non-numeric Juan C's results) [facility], ) LDL Cholesterol 15 mg/dL Normal (applies MEDGEN ( St Calc to non-numeric Juan C's results) [facility], ) ID Date Data Source [id number] 08/27/2019 12:00:00 AM EST [facility] ([facility], ) Name Value Range Interpretation Description [...] MEDGEN (St [Mass/volume] in performe to non-numeric [facility] [place] d. results) Medical, ) respiratory specimen Glucose Test not Normal (applies MEDGEN (St [Mass/volume] in performe to non-numeric Juan C's Urine collected d. results) Medical, ) for unspecified duration Ketones Test not Normal (applies MEDGEN (St [Presence] in performe to non-numeric Juan C's Blood by Tablet d. results) Medical, ) ID Date Data Source [id number] 08/27/2019 12:00:00 AM EST [facility] ([facility], ) Name Value Range Interpretation Description Data Sup porting Code Source(s) Document(s ) Glucose 87 mg/dL Normal (applies MEDGEN (St [Mass/volume] in to non-numeric Juan C's Urine collected for results) [facility], unspecified PC) duration Urea nitrogen 36 mg/dL Above high [facility]GEN (St [Mass/volume] in normal Juan C's Serum or Plasma Medical, ) Creatinine 2.81 Above high MEDGEN (St [Interpretation] in mg/dL normal Juan C's Urine [facility], ) eGFR If NonAfricn 21 Below low normal MEDGE N (St Am mL/min/1 Juan C's .73 [facility], ) eGFR If Africn Am 24 Below low normal MEDGE N (St mL/min/1 Juan C's .73 [facility], ) BUN/Creatinine 13 Normal (applies MEDGEN [...] non-numeric Juan C's Urine collected for results) [facility], unspecified ) duration Microalbumin 4.2 g/dL Normal (applies MEDGEN (St [Mass/time] in to non-numeric Juan C's Urine collected for results) Medical, unspecified ) duration Protein 9.0 g/dL Above high MEDGEN (St [Mass/volume] in normal Juan C's Serum or Plasma [facility], ) Globulin, Total 4.8 g/dL Above high MEDGEN (St normal [facility], ) A/G Ratio 0.9 Below low normal [facility] ([facility], ) Bilirubin.total 0.3 Normal (applies MEDGEN ( St [Mass/volume] in mg/dL to non-numeric Juan C's Serum or Plasma results) [facility], ) Aspartate 22 IU/L Normal (applies [...] Serum or Plasma ID Date Data Source [id number] 08/27/2019 12:00:00 AM EST [facility] ([facility], ) Name Value Range Interpretation Description Data Sup porting Code Source(s) Document(s ) Leukocytes 11.8 Above high normal MEDGEN (St [#/volume] in x10E3/uL Juan C's Blood by [facility], ) Automated count Erythrocytes 3.28 Below low normal MEDGEN (St [#/volume] in x10E6/uL Juan C's Blood by [facility], ) Automated count Hemoglobin 10.8 Below low normal [facility]GEN (St [Mass/volume] in g/dL Juan C's Blood [facility], ) Hematocrit 31.7 % Below low normal MEDGEN (St [Volume Juan C's Fraction] of [facility], ) Blood by Automated count MCV 97 fL Normal (applies MEDGEN (St to non-numeric Juan C's results) [facility], ) MCH 32.9 pg Normal (applies MEDGEN (St to non-numeric Juan C's results) [facility], ) MCHC 34.1 Normal (applies MEDGEN (St g/dL to non-numeric Juan C's results) [facility], ) RDW 17.5 % Above high normal [facility] ([facility], ) Platelets 237 Normal (applies MEDGEN (St [#/area] in x10E3/uL to non-numeric Juan C's Blood by results) [facility], ) Microscopy high power field Neutrophils [#] 53 % Normal (applies MEDGEN ( St in Body fluid by to non-numeric Juan C's Manual count results) [facility], ) Lymphs 20 % Normal (applies MEDGEN (St to non-numeric Juan C's results) [facility], ) Monocytes 13 % Normal (applies MEDGEN (St [#/volume] in to non-numeric Juan C's Cord blood results) [facility], ) Eos 12 % Normal (applies MEDGEN (St to non-numeric Juan C's results) [facility], ) Basos 1 % Normal (applies MEDGEN (St to non-numeric Juan C's results) [facility], ) Neutrophils 6.2 Normal (applies MEDGEN (St (Absolute) x10E3/uL to non-numeric Juan C's results) [facility], ) Lymphs 2.4 Normal (applies MEDGEN (St (Absolute) x10E3/uL to non-numeric Juan C's results) [facility], ) Monocytes(Absolu 1.5 Above high normal MEDGE N (St te) x10E3/uL Juan C's [facility], ) Baso (Absolute) 0.1 Normal (applies MEDGEN ( St x10E3/uL to non-numeric Juan C's results) [facility], ) Eos (Absolute) 1.5 Above high normal MEDGEN (St x10E3/uL Juan C's [facility], ) Immature 1 % Normal (applies MEDGEN (St Granulocytes to non-numeric Juan C's results) [facility], ) Immature Grans 0.2 Above high normal MEDGEN (St (Abs) x10E3/uL Juan C's [facility], ) Hematology Note: Normal (applies [facility] (St Comments: to non-numeric Juan C's results) [facility], ) ID Date Data Source [id number] 08/27/2019 12:00:00 AM EST [facility] ([facility], ) Name Value Range Interpretation Code Description Data Lisa rce(s) Supporting Document(s ) TSH 3.560 Normal (applies to [facility] (St uIU/mL non-numeric Juan C's results) Medical, ) T4,Free(D 1.22 ng/dL Normal (applies to [facility] (St irect) non-numeric Juan C's results) [facility], ) ID Date Data Source [id number] 08/27/2019 12:00:00 AM EST [facility] ([facility], ) Name Value Range Interpretation Description Data Sup porting Code Source(s) Document(s ) No Urine Test not Normal (applies to [facility] (St Received performed non-numeric Juan C's . results) [facility], ) ID Date Data Source [id number] 08/27/2019 12:00:00 AM EST [facility] ([facility], ) Name Value Range Interpretation Description Data Sup porting Code Source(s) Document(s ) Vitamin D, 42.8 Normal (applies to [facility] (St 25-Hydroxy ng/mL non-numeric Juan C's results) [facility], ) ID Date Data Source [id number] 08/27/2019 12:00:00 AM EST [facility] ([facility], ) Name Value Range Interpretation Description Data Sup porting Code Source(s) Document(s ) Hemoglobin 6.2 % Above high normal [facility] (St A1c/Hemoglobin. Juan C's total in Blood [facility], ) ID Date Data Source [id number] 08/27/2019 12:00:00 AM EST [facility] ([facility], ) Name Value Range Interpretation Description Data Sup porting Code Source(s) Document(s ) Vitamin B12 385 pg/mL Normal (applies to [facility] (S t non-numeric Juan C's results) Medical, ) Folate 10.5 Normal (applies to [facility] (St (Folic ng/mL non-numeric Juan C's Acid), Serum results) [facility], ) ID Date Data Source [id number] 08/27/2019 12:00:00 AM EST [facility] ([facility], ) Name Value Range Interpretation Description Data Sup porting Code Source(s) Document(s ) Cholesterol 80 mg/dL Below low normal MED[facility] (St [Mass/volume] in Juan C's Serum or Plasma [facility], ) Triglyceride 200 Above high normal MEDGEN (S t [Mass/volume] in mg/dL Juan C's Serum or Plasma [facility], ) HDL Cholesterol 25 mg/dL Below low normal [facility] ([facility], ) VLDL Cholesterol 40 mg/dL Normal (applies [facility] (St Nils to non-numeric Juan C's results) Medical, ) LDL Cholesterol 15 mg/dL Normal (applies [facility] ( St Calc to non-numeric Juan C's results) [facility], ) ID Date Data Source [id number] 08/27/2019 12:00:00 AM EST [facility] ([facility] [place] [place]) Name Value Range Interpretation Description Data Sup porting Code Source(s) Document(s ) Specific gravity Test not Normal (applies [facility] (St of Pericardial performe to non-numeric Juan C's fluid by d. results) Medical, ) Refractometry pH of Lower Test not Normal (applies [facility] (St respiratory performe to non-numeric Juan C's specimen d. results) [facility], ) Protein Test not Normal (applies [facility] (St [Mass/volume] in performe to non-numeric Juan C's Lower d. results) Medical, ) respiratory specimen Glucose Test not Normal (applies [facility] (St [Mass/volume] in performe to non-numeric Juan C's Urine collected d. results) [facility], ) for unspecified duration Ketones Test not Normal (applies [facility] (St [Presence] in performe to non-numeric Juan C's Blood by Tablet d. results) Medical, ) ID Date Data Source [id number] 08/27/2019 12:00:00 AM EST [facility] ([facility], ) Name Value Range Interpretation Description Data Sup porting Code Source(s) Document(s ) Glucose 87 mg/dL Normal (applies [facility] (St [Mass/volume] in to non-numeric Juan C's Urine collected for results) [facility] duration Urea nitrogen 36 mg/dL Above high MEDGEN (St [Mass/volume] in normal Juan C's Serum or Plasma [facility], ) Creatinine 2.81 Above high MEDGEN (St [Interpretation] in mg/dL normal Juan C's Urine [facility], ) eGFR If NonAfricn 21 Below low normal MEDGE N (St Am mL/min/1 Juan C's .73 [facility], ) eGFR If Africn Am 24 Below low normal MEDGE N (St mL/min/1 Juan C's .73 [facility], ) BUN/Creatinine 13 Normal (applies MEDGEN [...] Serum or Plasma ID Date Data Source [id number] 08/27/2019 12:00:00 AM EST [facility] ([facility], ) Name Value Range Interpretation Description Data Sup porting Code Source(s) Document(s ) Leukocytes 11.8 Above high normal [facility] (St [#/volume] in x10E3/uL Juan C's Blood by Medical, ) Automated count Erythrocytes 3.28 Below low normal [facility] (St [#/volume] in x10E6/uL Juan C's Blood by [facility], ) Automated count Hemoglobin 10.8 Below low normal [facility] (St [Mass/volume] in g/dL Juan C's Blood [facility], ) Hematocrit 31.7 % Below low normal [facility] (St [Volume Juan C's Fraction] of [facility], ) Blood by Automated count MCV 97 fL Normal (applies [facility] (St to non-numeric Juan C's results) [facility], ) MCH 32.9 pg Normal (applies [facility] (St to non-numeric Juan C's results) [facility], ) MCHC 34.1 Normal (applies [facility] (St g/dL to non-numeric Juan C's results) [facility], ) RDW 17.5 % Above high normal [facility] ([facility], ) Platelets 237 Normal (applies [facility]GEN (St [#/area] in x10E3/uL to non-numeric Juan C's Blood by results) Medical, ) Microscopy high power field Neutrophils [#] 53 % Normal (applies [facility]GEN ( St in Body fluid by to non-numeric Juan C's Manual count results) [facility], ) Lymphs 20 % Normal (applies [facility] (St to non-numeric Juan C's results) Medical, ) Monocytes 13 % Normal (applies [facility]GEN (St [#/volume] in to non-numeric Juan C's Cord blood results) [facility], ) Eos 12 % Normal (applies [facility] (St to non-numeric Juan C's results) [facility], ) Basos 1 % Normal (applies [facility] (St to non-numeric Juan C's results) [facility], ) Neutrophils 6.2 Normal (applies [facility] (St (Absolute) x10E3/uL to non-numeric Juan C's results) [facility], ) Lymphs 2.4 Normal (applies [facility] (St (Absolute) x10E3/uL to non-numeric Juan C's results) [facility], ) Monocytes(Absolu 1.5 Above high normal MEDGE N (St te) x10E3/uL Juan C's [facility], ) Eos (Absolute) 1.5 Above high normal [facility] (St x10E3/uL Juan C's [facility], ) Baso (Absolute) 0.1 Normal (applies [facility]GEN ( St x10E3/uL to non-numeric Juan C's results) [facility], ) Immature 1 % Normal (applies [facility]GEN (St Granulocytes to non-numeric Juan C's results) [facility], ) Immature Grans 0.2 Above high normal [facility] (St (Abs) x10E3/uL [facility], ) Hematology Note: Normal (applies MEDGEN (St Comments: to non-numeric Juan C's results) [facility], ) ID Date Data Source [id number] 08/27/2019 12:00:00 AM EST [facility] ([facility], ) Name Value Range Interpretation Code Description Data Lisa rce(s) Supporting Document(s ) TSH 3.560 Normal (applies to [facility] (St uIU/mL non-numeric Juan C's results) [facility], ) T4,Free(D 1.22 ng/dL Normal (applies to [facility] (St irect) non-numeric Juan C's results) [facility], ) ID Date Data Source [id number] 08/27/2019 12:00:00 AM EST [facility] ([facility], ) Name Value Range Interpretation Description Data Sup porting Code Source(s) Document(s ) No Urine Test not Normal (applies to [facility] (St Received performed non-numeric Juan C's . results) [facility], ) ID Date Data Source [id number] 08/27/2019 12:00:00 AM EST [facility] ([facility], ) Name Value Range Interpretation Description Data Sup porting Code Source(s) Document(s ) Vitamin D, 42.8 Normal (applies to [facility] (St 25-Hydroxy ng/mL non-numeric Juan C's results) [facility], ) Vitamin D, 30.6 Normal (applies to [facility] (St 25-Hydroxy ng/mL non-numeric Juan C's results) [facility], ) Vitamin D, 36.2 Normal (applies to [facility] (St 25-Hydroxy ng/mL non-numeric Juan C's results) [facility], ) ID Date Data Source [id number] 08/27/2019 12:00:00 AM EST [facility] ([facility], ) Name Value Range Interpretation Description Data Sup porting Code Source(s) Document(s ) Hemoglobin 6.2 % Above high normal [facility] (St A1c/Hemoglobin. Juan C's total in Blood [facility], ) ID Date Data Source [id number] 08/27/2019 12:00:00 AM EST [facility] ([facility], ) Name Value Range Interpretation Description Data Sup porting Code Source(s) Document(s ) Vitamin B12 385 pg/mL Normal (applies to MEDGEN (S t non-numeric Juan C's results) [facility], ) Folate 10.5 Normal (applies to [facility] (St (Folic ng/mL non-numeric Juan C's Acid), Serum results) [facility], ) ID Date Data Source [id number] 08/27/2019 12:00:00 AM EST [facility] ([facility], ) Name Value Range Interpretation Description Data Sup porting Code Source(s) Document(s ) Cholesterol 80 mg/dL Below low normal [facility] (St [Mass/volume] in Juan C's Serum or Plasma [facility], ) Triglyceride 200 Above high normal [facility]GEN (S t [Mass/volume] in mg/dL Juan C's Serum or Plasma [facility], ) HDL Cholesterol 25 mg/dL Below low normal [facility] ([facility], ) VLDL Cholesterol 40 mg/dL Normal (applies [facility] (St Nils to non-numeric Juan C's results) [facility], ) LDL Cholesterol 15 mg/dL Normal (applies [facility] ( St Calc to non-numeric Juan C's results) [facility], ) ID Date Data Source [id number] 08/27/2019 12:00:00 AM EST [facility] ([facility], ) Name Value Range Interpretation Description [...] results) Medical, ) ID Date Data Source [id number] 08/27/2019 12:00:00 AM EST [facility] ([facility], ) Name Value Range Interpretation Description Data Sup porting Code Source(s) Document(s ) Glucose 88 mg/dL Normal (applies [facility]GEN (St [Mass/volume] in to non-numeric Juan C's Urine collected for results) [facility], unspecified PC) duration Urea nitrogen 61 mg/dL Above high [facility] (St [Mass/volume] in normal Juan C's Serum or Plasma Medical, ) Creatinine 5.97 Above high [facility]GEN (St [Interpretation] in mg/dL normal Juan C's Urine Medical, ) eGFR If NonAfricn 9 Below low normal MEDGE N (St Am mL/min/1 Juan C's .73 [facility], ) eGFR If Africn Am 10 Below low normal MEDGE N (St mL/min/1 Juan C's .73 [facility], ) BUN/Creatinine 10 Normal (applies MEDGEN [...] in normal Juan C's Serum or Plasma [facility], ) Creatinine 2.81 Above high [facility]GEN (St [Interpretation] in mg/dL normal Juan C's Urine [facility], ) eGFR If NonAfricn 21 Below low normal MEDGE N (St Am mL/min/1 Juan C's .73 [facility], ) eGFR If Africn Am 24 Below low normal MEDGE N (St mL/min/1 Juan C's .73 [facility], ) BUN/Creatinine 13 Normal (applies MEDGEN [...] non-numeric Juan C's Serum or Plasma results) [facility], ) Calcium 9.8 Normal (applies [facility] (St [Moles/volume] in mg/dL to non-numeric Juan C's Urine collected for results) [facility], unspecified ) duration Protein 9.0 g/dL Above high MEDGEN (St [Mass/volume] in normal Juan C's Serum or Plasma [facility], ) Microalbumin 4.2 g/dL Normal (applies [facility]GEN (St [Mass/time] in to non-numeric Juan C's Urine collected for results) [facility], unspecified ) duration Globulin, Total 4.8 g/dL Above high [facility] (St [facility], ) A/G Ratio 0.9 Below low normal [facility] ([facility], ) Bilirubin.total 0.3 Normal (applies [facility] ( St [Mass/volume] in mg/dL to non-numeric Juan C's Serum or Plasma results) [facility], ) Alkaline 53 IU/L Normal (applies [...] Serum or Plasma ID Date Data Source [id number] 08/27/2019 12:00:00 AM EST [facility] (St [facility], ) Name Value Range Interpretation Description Data Sup porting Code Source(s) Document(s ) Leukocytes 11.7 Above high normal [facility] (St [#/volume] in x10E3/uL Juan C's Blood by [facility], ) Automated count Erythrocytes 2.47 Below lower panic MEDGEN (S t [#/volume] in x10E6/uL limits Juan C's Blood by [facility], ) Automated count Hemoglobin 8.2 g/dL Below low normal [facility] (St [Mass/volume] in Juan C's Blood [facility], ) Hematocrit 23.3 % Below low normal [facility] (St [Volume Juan C's Fraction] of [facility], ) Blood by Automated count MCH 33.2 pg Above high normal [facility] ([facility], ) MCV 94 fL Normal (applies [facility] (St to non-numeric Juan C's results) [facility]) MCHC 35.2 Normal (applies [facility]GEN (St g/dL to non-numeric Juan C's results) [facility]) RDW 19.0 % Above high normal [facility] ([facility], ) Platelets 198 Normal (applies [facility]GEN (St [#/area] in x10E3/uL to non-numeric Juan C's Blood by results) [facility]) Microscopy high power field Neutrophils [#] 54 % Normal (applies MEDGEN ( St in Body fluid by to non-numeric Juan C's Manual count results) [facility], ) Lymphs 13 % Normal (applies [facility]GEN (St to non-numeric Juan C's results) [facility]) Monocytes 16 % Normal (applies MEDGEN (St [#/volume] in to non-numeric Juan C's Cord blood results) [facility]) Eos 11 % Normal (applies [facility] (St to non-numeric Juan C's results) [facility]) Basos 1 % Normal (applies [facility] (St to non-numeric Juan C's results) [facility]) Neutrophils 6.4 Normal (applies [facility]GEN (St (Absolute) x10E3/uL to non-numeric Juan C's results) [facility], ) Lymphs 1.5 Normal (applies [facility]GEN (St (Absolute) x10E3/uL to non-numeric Juan C's results) [facility]) Monocytes(Absolu 1.9 Above high normal MEDGE N (St te) x10E3/uL Juan C's [facility]) Eos (Absolute) 1.3 Above high normal [facility] (St x10E3/uL Juan C's [facility], ) Baso (Absolute) 0.1 Normal (applies [facility] ( St x10E3/uL to non-numeric Juan C's results) [facility], ) Immature 5 % Normal (applies [facility]GEN (St Granulocytes to non-numeric Juan C's results) [facility]) Immature Grans 0.6 Above high normal [facility] (St (Abs) x10E3/uL Juan C's [facility], ) NRBC 4 % Above high normal [facility] ([facility], ) Leukocytes 11.8 Above high normal [facility] (St [#/volume] in x10E3/uL Juan C's Blood by [facility], ) Automated count Erythrocytes 3.28 Below low normal [facility] (St [#/volume] in x10E6/uL Juan C's Blood by [facility], ) Automated count Hemoglobin 10.8 Below low normal [facility] (St [Mass/volume] in g/dL Juan C's Blood [facility], ) MCV 97 fL Normal (applies [facility]GEN (St to non-numeric Juan C's results) [facility], ) Hematocrit 31.7 % Below low normal [facility]GEN (St [Volume Juan C's Fraction] of [facility], ) Blood by Automated count MCH 32.9 pg Normal (applies [facility]GEN (St to non-numeric Juan C's results) [facility], ) RDW 17.5 % Above high normal [facility] ([facility], ) MCHC 34.1 Normal (applies [facility]GEN (St g/dL to non-numeric Juan C's results) [facility], ) Platelets 237 Normal (applies [facility]GEN (St [#/area] in x10E3/uL to non-numeric Juan C's Blood by results) [facility], ) Microscopy high power field Neutrophils [#] 53 % Normal (applies [facility]GEN ( St in Body fluid by to non-numeric Juan C's Manual count results) [facility], ) Lymphs 20 % Normal (applies [facility]GEN (St to non-numeric Juan C's results) [facility], ) Eos 12 % Normal (applies [facility]GEN (St to non-numeric Juan C's results) [facility], ) Monocytes 13 % Normal (applies [facility]GEN (St [#/volume] in to non-numeric Juan C's Cord blood results) [facility], ) Basos 1 % Normal (applies [facility]GEN (St to non-numeric Juan C's results) [facility], ) Neutrophils 6.2 Normal (applies [facility]GEN (St (Absolute) x10E3/uL to non-numeric Juan C's results) [facility], ) Lymphs 2.4 Normal (applies MEDGEN (St (Absolute) x10E3/uL to non-numeric Juan C's results) [facility], ) Monocytes(Absolu 1.5 Above high normal MEDGE N (St te) x10E3/uL Juan C's [facility], ) Baso (Absolute) 0.1 Normal (applies [facility] ( St x10E3/uL to non-numeric Juan C's results) [facility], ) Eos (Absolute) 1.5 Above high normal [facility] (St x10E3/uL [facility], ) Immature 1 % Normal (applies [facility]GEN (St Granulocytes to non-numeric Juan C's results) [facility], ) Hematology Note: Normal (applies MEDGEN (St Comments: to non-numeric Juan C's results) [facility], ) Immature Grans 0.2 Above high normal [facility]GEN (St (Abs) x10E3/uL [facility], ) Leukocytes 9.5 Normal (applies MEDGEN (St [#/volume] in x10E3/uL to non-numeric Juan C's Blood by results) [facility], ) Automated count Erythrocytes 3.28 Below low normal [facility] (St [#/volume] in x10E6/uL Juan C's Blood by [facility], ) Automated count Hemoglobin 10.9 Below low normal [facility] (St [Mass/volume] in g/dL Juan C's Blood [facility], ) Hematocrit 32.1 % Below low normal [facility] (St [Volume Juan C's Fraction] of [facility], ) Blood by Automated count MCH 33.2 pg Above high normal [facility] ([facility], ) MCV 98 fL Above high normal [facility] ([facility], ) MCHC 34.0 Normal (applies MEDGEN (St g/dL to non-numeric Juan C's results) [facility], ) RDW 17.3 % Above high normal [facility] ([facility], ) Platelets 240 Normal (applies MEDGEN (St [#/area] in x10E3/uL to non-numeric Juan C's Blood by results) [facility], ) Microscopy high power field Neutrophils [#] 53 % Normal (applies MEDGEN ( St in Body fluid by to non-numeric Juan C's Manual count results) [facility], ) Lymphs 19 % Normal (applies MEDGEN (St to non-numeric Juan C's results) [facility], ) Eos 11 % Normal (applies [facility]GEN (St to non-numeric Juan C's results) [facility], ) Monocytes 15 % Normal (applies [facility]GEN (St [#/volume] in to non-numeric Juan C's Cord blood results) [facility]) Basos 0 % Normal (applies MEDGEN (St to non-numeric Juan C's results) [facility]) Neutrophils 5.1 Normal (applies MEDGEN (St (Absolute) x10E3/uL to non-numeric Juan C's results) [facility]) Lymphs 1.8 Normal (applies MEDGEN (St (Absolute) x10E3/uL to non-numeric Juan C's results) [facility]) Monocytes(Absolu 1.5 Above high normal MEDGE N (St te) x10E3/uL [facility]) Eos (Absolute) 1.0 Above high normal [facility] (St x10E3/uL [facility]) Baso (Absolute) 0.0 Normal (applies MEDGEN ( St x10E3/uL to non-numeric Juan C's results) [facility]) Immature Grans 0.2 Above high normal [facility]GEN (St (Abs) x10E3/uL [facility]) Immature 2 % Normal (applies [facility]GEN (St Granulocytes to non-numeric Juan C's results) [facility]) Hematology Note: Normal (applies MEDGEN (St Comments: to non-numeric Juan C's results) [facility]) ID Date Data Source [id number] 08/27/2019 12:00:00 AM EST [facility] ([facility]) Name Value Range Interpretation Code Description Data Lisa rce(s) Supporting Document(s ) TSH 3.560 Normal (applies to MEDGEN (St uIU/mL non-numeric Juan C's results) [facility]) T4,Free(D 1.22 ng/dL Normal (applies to MEDGEN (St irect) non-numeric Juan C's results) [facility]) ID Date Data Source [id number] 08/27/2019 12:00:00 AM EST [facility] ([facility]) Name Value Range Interpretation Description Data Sup porting Code Source(s) Document(s ) No Urine Test not Normal (applies to MEDGEN (St Received performed non-numeric Juan C's . results) [facility]) ID Date Data Source [id number] 08/27/2019 12:00:00 AM EST [facility] ([facility], ) Name Value Range Interpretation Description Data Sup porting Code Source(s) Document(s ) Vitamin D, 42.8 Normal (applies to [facility]GEN (St 25-Hydroxy ng/mL non-numeric Juan C's results) Medical, ) Vitamin D, 36.2 Normal (applies to [facility]GEN (St 25-Hydroxy ng/mL non-numeric Juan C's results) Medical, ) ID Date Data Source [id number] 08/27/2019 12:00:00 AM EST [facility] (St [facility], ) Name Value Range Interpretation Description Data Sup porting Code Source(s) Document(s ) Hemoglobin 6.2 % Above high normal [facility]GEN (St A1c/Hemoglobin. Juan C's total in Blood [facility], ) ID Date Data Source [id number] 08/27/2019 12:00:00 AM EST [facility] ([facility], ) Name Value Range Interpretation Description Data Sup porting Code Source(s) Document(s ) Folate 10.5 Normal (applies to MEDGEN (St (Folic ng/mL non-numeric Juan C's Acid), Serum results) Medical, ) Vitamin B12 385 pg/mL Normal (applies to MEDGEN (S t non-numeric Juan C's results) Medical, ) ID Date Data Source [id number] 08/27/2019 12:00:00 AM EST [facility] ([facility], ) Name Value Range Interpretation Description Data Sup porting Code Source(s) Document(s ) Cholesterol 80 mg/dL Below low normal [facility] (St [Mass/volume] in Juan C's Serum or Plasma Medical, ) Triglyceride 200 Above high normal MEDGEN (S t [Mass/volume] in mg/dL Juan C's Serum or Plasma [facility], ) VLDL Cholesterol 40 mg/dL Normal (applies [facility]GEN (St Nils to non-numeric Juan C's results) Medical, ) HDL Cholesterol 25 mg/dL Below low normal [facility] ([facility], ) LDL Cholesterol 15 mg/dL Normal (applies MEDGEN ( St Calc to non-numeric Juan C's results) [facility], ) ID Date Data Source [id number] 08/27/2019 12:00:00 AM EST [facility] ([facility], ) Name Value Range Interpretation Description [...] for unspecified duration ID Date Data Source [id number] 08/27/2019 12:00:00 AM EST [facility] ([facility], ) Name Value Range Interpretation Description Data Sup porting Code Source(s) Document(s ) Urea nitrogen 36 mg/dL Above high MEDGEN (St [Mass/volume] in normal Juan C's Serum or Plasma Medical, ) Glucose 87 mg/dL Normal (applies [facility] (St [Mass/volume] in to non-numeric Juan C's Urine collected for results) [facility], unspecified ) duration Creatinine 2.81 Above [...] non-numeric Juan C's Serum or Plasma results) [facility], ) Protein 9.0 g/dL Above high MEDGEN (St [Mass/volume] in normal Juan C's Serum or Plasma [facility], ) Calcium 9.8 Normal (applies MEDGEN (St [Moles/volume] in mg/dL to non-numeric Juan C's Urine collected for results) [facility], unspecified ) duration Microalbumin 4.2 g/dL Normal (applies MEDGEN (St [Mass/time] in to non-numeric Juan C's Urine collected for results) [facility], unspecified ) duration Globulin, Total 4.8 g/dL Above high MEDGEN (St [facility], ) A/G Ratio 0.9 Below low normal MED[facility] ([facility], ) Bilirubin.total 0.3 Normal (applies MEDGEN ( St [Mass/volume] in mg/dL to non-numeric Juan C's Serum or Plasma results) [facility], ) Aspartate 22 IU/L Normal (applies [...] Serum or Plasma ID Date Data Source [id number] 08/27/2019 12:00:00 AM EST [facility] ([facility], ) Name Value Range Interpretation Description Data Sup porting Code Source(s) Document(s ) Leukocytes 11.8 Above high normal MEDGEN (St [#/volume] in x10E3/uL Juan C's Blood by [facility], ) Automated count Erythrocytes 3.28 Below low normal MED[facility] (St [#/volume] in x10E6/uL Juan C's Blood by [facility], ) Automated count Hematocrit 31.7 % Below low normal MEDGEN (St [Volume Juan C's Fraction] of [facility], ) Blood by Automated count Hemoglobin 10.8 Below low normal [facility] (St [Mass/volume] in g/dL Juan C's Blood [facility], ) MCV 97 fL Normal (applies MEDGEN (St to non-numeric Juan C's results) [facility], ) MCH 32.9 pg Normal (applies MEDGEN (St to non-numeric Juan C's results) [facility], ) RDW 17.5 % Above high normal [facility] ([facility], ) MCHC 34.1 Normal (applies MEDGEN (St g/dL to non-numeric Juan C's results) [facility], ) Neutrophils [#] 53 % Normal (applies MEDGEN ( St in Body fluid by to non-numeric Juan C's Manual count results) [facility], ) Platelets 237 Normal (applies MEDGEN (St [#/area] in x10E3/uL to non-numeric Juan C's Blood by results) [facility], ) Microscopy high power field Lymphs 20 % Normal (applies [facility]GEN (St to non-numeric Juan C's results) [facility], ) Eos 12 % Normal (applies [facility]GEN (St to non-numeric Juan C's results) [facility], ) Basos 1 % Normal (applies MEDGEN (St to non-numeric Juan C's results) [facility], ) Monocytes 13 % Normal (applies MEDGEN (St [#/volume] in to non-numeric Juan C's Cord blood results) [facility], ) Neutrophils 6.2 Normal (applies [facility]GEN (St (Absolute) x10E3/uL to non-numeric Juan C's results) [facility], ) Eos (Absolute) 1.5 Above high normal MEDGEN (St x10E3/uL Juan C's [facility], ) Monocytes(Absolu 1.5 Above high normal MEDGE N (St te) x10E3/uL Juan C's [facility], ) Lymphs 2.4 Normal (applies [facility]GEN (St (Absolute) x10E3/uL to non-numeric Juan C's results) [facility], ) Immature 1 % Normal (applies [facility]GEN (St Granulocytes to non-numeric Juan C's results) [facility], ) Baso (Absolute) 0.1 Normal (applies [facility]GEN ( St x10E3/uL to non-numeric Juan C's results) [facility], ) Immature Grans 0.2 Above high normal [facility] (St (Abs) x10E3/uL Juan [facility]'s [facility], ) Hematology Note: Normal (applies [facility]GEN (St Comments: to non-numeric Juan C's results) [facility], ) Leukocytes 9.5 Normal (applies [facility] (St [#/volume] in x10E3/uL to non-numeric Juan C's Blood by results) [facility]) Automated count Erythrocytes 3.28 Below low normal [facility] (St [#/volume] in x10E6/uL Juan C's Blood by [facility]) Automated count Hemoglobin 10.9 Below low normal [facility] (St [Mass/volume] in g/dL Juan C's Blood [facility]) MCV 98 fL Above high normal [facility] ([facility], ) Hematocrit 32.1 % Below low normal [facility] (St [Volume Juan C's Fraction] of [facility]) Blood by Automated count MCHC 34.0 Normal (applies [facility] (St g/dL to non-numeric Juan C's results) [facility]) MCH 33.2 pg Above high normal [facility] ([facility], ) Platelets 240 Normal (applies MEDGEN (St [#/area] in x10E3/uL to non-numeric Juan C's Blood by results) [facility]) Microscopy high power field RDW 17.3 % Above high normal [facility] ([facility], ) Neutrophils [#] 53 % Normal (applies MEDGEN ( St in Body fluid by to non-numeric Juan C's Manual count results) [facility]) Lymphs 19 % Normal (applies [facility] (St to non-numeric Juan C's results) [facility]) Monocytes 15 % Normal (applies [facility]GEN (St [#/volume] in to non-numeric Juan C's Cord blood results) [facility]) Basos 0 % Normal (applies [facility] (St to non-numeric Juan C's results) [facility]) Eos 11 % Normal (applies [facility] (St to non-numeric Juan C's results) [facility]) Lymphs 1.8 Normal (applies [facility] (St (Absolute) x10E3/uL to non-numeric Juan C's results) [facility]) Neutrophils 5.1 Normal (applies [facility] (St (Absolute) x10E3/uL to non-numeric Juan C's results) [facility]) Eos (Absolute) 1.0 Above high normal [facility] (St x10E3/uL [facility], ) Monocytes(Absolu 1.5 Above high normal MEDGE N (St te) x10E3/uL [facility], ) Immature 2 % Normal (applies [facility] (St Granulocytes to non-numeric Juan C's results) Medical, ) Baso (Absolute) 0.0 Normal (applies [facility]GEN ( St x10E3/uL to non-numeric Juan C's results) Medical, ) Immature Grans 0.2 Above high normal [facility] (St (Abs) x10E3/uL [facility]'s [facility], ) Hematology Note: Normal (applies [facility]GEN (St Comments: to non-numeric Juan C's results) Medical, ) ID Date Data Source [id number] 08/27/2019 12:00:00 AM EST [facility] ([facility], ) Name Value Range Interpretation Code Description Data Lisa rce(s) Supporting Document(s ) TSH 3.560 Normal (applies to [facility] (St uIU/mL non-numeric Juan C's results) Medical, ) T4,Free(D 1.22 ng/dL Normal (applies to [facility] (St irect) non-numeric Juan C's results) Medical, ) ID Date Data Source [id number] 08/27/2019 12:00:00 AM EST [facility] ([facility], ) Name Value Range Interpretation Description Data Sup porting Code Source(s) Document(s ) No Urine Test not Normal (applies to [facility] (St Received performed non-numeric Juan C's . results) Medical, ) ID Date Data Source [id number] 08/27/2019 12:00:00 AM EST [facility] ([facility], ) Name Value Range Interpretation Description Data Sup porting Code Source(s) Document(s ) Vitamin D, 42.8 Normal (applies to [facility] (St 25-Hydroxy ng/mL non-numeric Juan C's results) [facility], ) Vitamin D, 36.2 Normal (applies to [facility] (St 25-Hydroxy ng/mL non-numeric Juan C's results) Medical, ) ID Date Data Source [id number] 08/27/2019 12:00:00 AM EST [facility] ([facility], ) Name Value Range Interpretation Description Data Sup porting Code Source(s) Document(s ) Hemoglobin 6.2 % Above high normal [facility] (St A1c/Hemoglobin. Juan C's total in Blood [facility], ) ID Date Data Source [id number] 08/27/2019 12:00:00 AM EST [facility] ([facility], ) Name Value Range Interpretation Description Data Sup porting Code Source(s) Document(s ) Vitamin B12 385 pg/mL Normal (applies to [facility]GEN (S t non-numeric Juan C's results) Medical, ) Folate 10.5 Normal (applies to [facility] (St (Folic ng/mL non-numeric Juan C's Acid), Serum results) [facility], ) ID Date Data Source [id number] 08/27/2019 12:00:00 AM EST [facility] ([facility], ) Name Value Range Interpretation Description Data Sup porting Code Source(s) Document(s ) Cholesterol 80 mg/dL Below low normal [facility] (St [Mass/volume] in Juan C's Serum or Plasma [facility], ) Triglyceride 200 Above high normal [facility]GEN (S t [Mass/volume] in mg/dL [facility] Serum or Plasma [facility], ) HDL Cholesterol 25 mg/dL Below low normal [facility] ([facility], ) LDL Cholesterol 15 mg/dL Normal (applies [facility]GEN ( St Calc to non-numeric Juan C's results) [facility], ) VLDL Cholesterol 40 mg/dL Normal (applies [facility] (St Nils to non-numeric Juan C's results) [facility], ) ID Date Data Source [id number] 08/27/2019 12:00:00 AM EST [facility] ([facility], ) Name Value Range Interpretation [...] to non-numeric Juan C's Lower d. results) [facility], ) respiratory specimen Glucose Test not Normal (applies [facility] (St [Mass/volume] in performe to non-numeric Juan C's Urine collected d. results) Medical, ) for unspecified duration Ketones Test not Normal (applies [facility] (St [Presence] in performe to non-numeric Juan C's Blood by Tablet d. results) Medical, ) ID Date Data Source [id number] 08/27/2019 12:00:00 AM EST [facility] ([facility], ) Name Value Range Interpretation Description Data Sup porting Code Source(s) Document(s ) Glucose 87 mg/dL Normal (applies [facility] (St [Mass/volume] in to non-numeric Juan C's Urine collected for results) Medical, unspecified ) duration Creatinine 2.81 Above high [facility] (St [Interpretation] in mg/dL normal Juan C's Urine [facility], ) Urea nitrogen 36 mg/dL Above high [facility]GEN (St [Mass/volume] in normal Juan C's Serum or Plasma [facility], ) eGFR If Africn Am 24 Below low normal MEDGE N (St mL/min/[address], ) eGFR If NonAfricn 21 Below low normal MEDGE N (St Am mL/min/[address], ) BUN/Creatinine 13 Normal (applies [facility]GEN (S t Ratio to non-numeric Juan C's results) Medical, ) Sodium 135 Normal (applies [facility] (St [Moles/volume] in mmol/L to non-numeric Juan C's Serum or Plasma results) [facility], ) Potassium 4.1 Normal (applies [facility] (St [Mass/volume] in mmol/L to non-numeric Juan C's Blood results) [facility], ) Carbon dioxide, 20 Normal (applies [facility]GEN ( St total mmol/L to non-numeric Juan C's [Moles/volume] in results) Medical, Serum or Plasma [facility]) Chloride 102 Normal (applies [facility]GEN (St [Moles/volume] in mmol/L to non-numeric Juan C's Serum or Plasma results) [facility], ) Calcium 9.8 Normal (applies [facility]GEN (St [Moles/volume] in mg/dL to non-numeric Juan C's Urine collected for results) Medical, unspecified ) duration Protein 9.0 g/dL Above high [facility]GEN (St [Mass/volume] in normal Juan C's Serum or Plasma [facility], ) Globulin, Total 4.8 g/dL Above high MEDGEN (St normal Juan C's [facility], ) Microalbumin 4.2 g/dL Normal (applies MEDGEN (St [Mass/time] in to non-numeric Juan C's Urine collected for results) Medical, unspecified ) duration A/G Ratio 0.9 Below low normal [facility] ([facility], ) Bilirubin.total 0.3 Normal (applies [facility] ( St [Mass/volume] in mg/dL to non-numeric Juan C's Serum or Plasma results) [facility], ) Alkaline 53 IU/L Normal (applies [...] Serum or Plasma ID Date Data Source [id number] 08/27/2019 12:00:00 AM EST [facility] ([facility], ) Name Value Range Interpretation Description Data Sup porting Code Source(s) Document(s ) Erythrocytes 3.28 Below low normal [facility] (St [#/volume] in x10E6/uL Juan C's Blood by [facility], ) Automated count Leukocytes 11.8 Above high normal [facility] (St [#/volume] in x10E3/uL Juan C's Blood by [facility], ) Automated count Hemoglobin 10.8 Below low normal [facility] (St [Mass/volume] in g/dL Juan C's Blood [facility], ) Hematocrit 31.7 % Below low normal [facility] (St [Volume Juan C's Fraction] of [facility], ) Blood by Automated count MCV 97 fL Normal (applies MEDGEN (St to non-numeric Juan C's results) [facility], ) MCH 32.9 pg Normal (applies MEDGEN (St to non-numeric Juan C's results) [facility], ) MCHC 34.1 Normal (applies [facility]GEN (St g/dL to non-numeric Juan C's results) [facility], ) Platelets 237 Normal (applies MEDGEN (St [#/area] in x10E3/uL to non-numeric Juan C's Blood by results) [facility], ) Microscopy high power field RDW 17.5 % Above high normal [facility] ([facility], ) Lymphs 20 % Normal (applies [facility]GEN (St to non-numeric Juan C's results) [facility], ) Neutrophils [#] 53 % Normal (applies MEDGEN ( St in Body fluid by to non-numeric Juan C's Manual count results) [facility], ) Monocytes 13 % Normal (applies MEDGEN (St [#/volume] in to non-numeric Juan C's Cord blood results) [facility], ) Eos 12 % Normal (applies MEDGEN (St to non-numeric Juan C's results) [facility], ) Basos 1 % Normal (applies [facility]GEN (St to non-numeric Juan C's results) [facility], ) Neutrophils 6.2 Normal (applies MEDGEN (St (Absolute) x10E3/uL to non-numeric Juan C's results) [facility], ) Lymphs 2.4 Normal (applies MEDGEN (St (Absolute) x10E3/uL to non-numeric Juan C's results) [facility]) Monocytes(Absolu 1.5 Above high normal MEDGE N (St te) x10E3/uL Juan C's [facility], ) Eos (Absolute) 1.5 Above high normal [facility] (St x10E3/uL Juan C's [facility], ) Immature 1 % Normal (applies MEDGEN (St Granulocytes to non-numeric Jua Nc's results) [facility]) Baso (Absolute) 0.1 Normal (applies MEDGEN ( St x10E3/uL to non-numeric Juan C's results) [facility]) Immature Grans 0.2 Above high normal [facility] (St (Abs) x10E3/uL Juan C's [facility], ) Hematology Note: Normal (applies MEDGEN (St Comments: to non-numeric Juan C's results) [facility], ) Leukocytes 9.5 Normal (applies MEDGEN (St [#/volume] in x10E3/uL to non-numeric Juan C's Blood by results) [facility], ) Automated count Erythrocytes 3.28 Below low normal [facility] (St [#/volume] in x10E6/uL Juan C's Blood by [facility], ) Automated count Hemoglobin 10.9 Below low normal [facility] (St [Mass/volume] in g/dL Juan C's Blood [facility], ) Hematocrit 32.1 % Below low normal [facility] (St [Volume Juan C's Fraction] of [facility], ) Blood by Automated count MCV 98 fL Above high normal [facility] ([facility], ) MCH 33.2 pg Above high normal [facility] ([facility], ) MCHC 34.0 Normal (applies [facility]GEN (St g/dL to non-numeric Juan C's results) [facility]) RDW 17.3 % Above high normal [facility] ([facility], ) Platelets 240 Normal (applies MEDGEN (St [#/area] in x10E3/uL to non-numeric Juan C's Blood by results) [facility], ) Microscopy high power field Lymphs 19 % Normal (applies [facility]GEN (St to non-numeric Juan C's results) [facility], ) Neutrophils [#] 53 % Normal (applies MEDGEN ( St in Body fluid by to non-numeric Juan C's Manual count results) [facility], ) Monocytes 15 % Normal (applies MEDGEN (St [#/volume] in to non-numeric Juan C's Cord blood results) [facility], ) Eos 11 % Normal (applies MEDGEN (St to non-numeric Juan C's results) [facility], ) Basos 0 % Normal (applies MEDGEN (St to non-numeric Juan C's results) [facility], ) Lymphs 1.8 Normal (applies [facility]GEN (St (Absolute) x10E3/uL to non-numeric Juan C's results) [facility]) Neutrophils 5.1 Normal (applies [facility]GEN (St (Absolute) x10E3/uL to non-numeric Juan C's results) [facility]) Eos (Absolute) 1.0 Above high normal [facility] (St x10E3/uL Juan C's [facility], ) Monocytes(Absolu 1.5 Above high normal MEDGE N (St te) x10E3/uL [facility]) Baso (Absolute) 0.0 Normal (applies MEDGEN ( St x10E3/uL to non-numeric Juan C's results) [facility], ) Immature 2 % Normal (applies MEDGEN (St Granulocytes to non-numeric Juan C's results) [facility]) Immature Grans 0.2 Above high normal [facility]GEN (St (Abs) x10E3/uL [facility], ) Hematology Note: Normal (applies MEDGEN (St Comments: to non-numeric Juan C's results) [facility], ) ID Date Data Source [id number] 08/27/2019 12:00:00 AM EST [facility] ([facility], ) Name Value Range Interpretation Code Description Data Lisa rce(s) Supporting Document(s ) T4,Free(D 1.22 ng/dL Normal (applies to MEDGEN (St irect) non-numeric Juan C's results) Medical, ) TSH 3.560 Normal (applies to [facility] (St uIU/mL non-numeric Juan C's results) [facility], ) ID Date Data Source [id number] 08/27/2019 12:00:00 AM EST [facility] ([facility] [place] [place]) Name Value Range Interpretation Description Data Sup porting Code Source(s) Document(s ) Cholesterol 80 mg/dL Below low normal [facility] (St [Mass/volume] in Juan C's Serum or Plasma [facility]) Triglyceride 200 Above high normal MEDGEN (S t [Mass/volume] in mg/dL Juan C's Serum or Plasma [facility]) HDL Cholesterol 25 mg/dL Below low normal [facility], ) VLDL Cholesterol 40 mg/dL Normal (applies MEDGEN (St Nils to non-numeric Juan C's results) [facility], ) LDL Cholesterol 15 mg/dL Normal (applies MEDGEN ( St Calc to non-numeric Juan C's results) [facility], ) ID Date Data Source [id number] 08/27/2019 12:00:00 AM EST [facility] ([facility] [place] [place]) Name Value Range Interpretation Description Data Sup [...] results) Medical, ) ID Date Data Source [id number] 08/27/2019 12:00:00 AM EST [facility] ([facility], ) Name Value Range Interpretation Description Data Sup porting Code Source(s) Document(s ) Glucose 87 mg/dL Normal (applies MEDGEN (St [Mass/volume] in to non-numeric Juan C's Urine collected for results) Medical, unspecified ) duration Urea nitrogen 36 mg/dL Above high MEDGEN (St [Mass/volume] in normal Juan C's Serum or Plasma [facility], ) Creatinine 2.81 Above high MEDGEN (St [Interpretation] in mg/dL normal Juan C's Urine [facility], ) eGFR If NonAfricn 21 Below low normal MEDGE N (St Am mL/min/[address], ) eGFR If Africn Am 24 Below low normal MEDGE N (St mL/min/1 [facility], ) BUN/Creatinine 13 Normal (applies MEDGEN (S t Ratio to non-numeric Juan C's results) [facility], ) Sodium 135 Normal (applies MEDGEN (St [Moles/volume] in mmol/L to non-numeric Juan C's Serum or Plasma results) [facility], ) Potassium 4.1 Normal (applies MEDGEN (St [Mass/volume] in mmol/L to non-numeric Juan C's Blood results) [facility], ) Chloride 102 Normal (applies MEDGEN (St [Moles/volume] in mmol/L to non-numeric Juan C's Serum or Plasma results) [facility], ) Carbon dioxide, 20 Normal (applies MEDGEN ( St total mmol/L to non-numeric Juan C's [Moles/volume] in results) Medical, Serum or Plasma [facility]) Calcium 9.8 Normal (applies MEDGEN (St [Moles/volume] in mg/dL to non-numeric Juan C's Urine collected for results) Medical, unspecified [facility]) duration Protein 9.0 g/dL Above high MEDGEN (St [Mass/volume] in normal Juan C's Serum or Plasma [facility], ) Microalbumin 4.2 g/dL Normal (applies MEDGEN (St [Mass/time] in to non-numeric Juan C's Urine collected for results) Medical, unspecified PC) duration Globulin, Total 4.8 g/dL Above high MEDGEN (St normal Juan C's [facility], ) A/G Ratio 0.9 Below low normal [facility] ([facility], ) Bilirubin.total 0.3 Normal (applies MEDGEN ( St [Mass/volume] in mg/dL to non-numeric Juan C's Serum or Plasma results) [facility], ) Alkaline 53 IU/L Normal (applies [...] Serum or Plasma ID Date Data Source [id number] 08/27/2019 12:00:00 AM EST [facility] ([facility], ) Name Value Range Interpretation Description Data Sup porting Code Source(s) Document(s ) Leukocytes 11.8 Above high normal MEDGEN (St [#/volume] in x10E3/uL Jaun C's Blood by [facility], ) Automated count Erythrocytes 3.28 Below low normal [facility]GEN (St [#/volume] in x10E6/uL Juan C's Blood by [facility], ) Automated count Hemoglobin 10.8 Below low normal [facility]GEN (St [Mass/volume] in g/dL Juan C's Blood [facility], ) Hematocrit 31.7 % Below low normal MEDGEN (St [Volume Juan C's Fraction] of [facility], ) Blood by Automated count MCV 97 fL Normal (applies MEDGEN (St to non-numeric Juan C's results) [facility], ) MCH 32.9 pg Normal (applies MEDGEN (St to non-numeric Juan C's results) [facility], ) MCHC 34.1 Normal (applies MEDGEN (St g/dL to non-numeric Juan C's results) [facility], ) RDW 17.5 % Above high normal [facility] ([facility], ) Platelets 237 Normal (applies MEDGEN (St [#/area] in x10E3/uL to non-numeric Juan C's Blood by results) [facility], ) Microscopy high power field Neutrophils [#] 53 % Normal (applies MEDGEN ( St in Body fluid by to non-numeric Juan C's Manual count results) [facility]) Lymphs 20 % Normal (applies MEDGEN (St to non-numeric Juan C's results) [facility], ) Monocytes 13 % Normal (applies MEDGEN (St [#/volume] in to non-numeric Juan C's Cord blood results) [facility]) Eos 12 % Normal (applies MEDGEN (St to non-numeric Juan C's results) [facility], ) Basos 1 % Normal (applies MEDGEN (St to non-numeric Juan C's results) [facility], ) Neutrophils 6.2 Normal (applies MEDGEN (St (Absolute) x10E3/uL to non-numeric Juan C's results) [facility]) Lymphs 2.4 Normal (applies MEDGEN (St (Absolute) x10E3/uL to non-numeric Juan C's results) [facility], ) Monocytes(Absolu 1.5 Above high normal MEDGE N (St te) x10E3/uL Juan [facility] [facility] ) Eos (Absolute) 1.5 Above high normal MEDGEN (St x10E3/uL Juan [facility], ) Baso (Absolute) 0.1 Normal (applies MEDGEN ( St x10E3/uL to non-numeric Juan C's results) [facility], ) Immature 1 % Normal (applies [facility]GEN (St Granulocytes to non-numeric Juan C's results) [facility]) Immature Grans 0.2 Above high normal MEDGEN (St (Abs) x10E3/uL [facility], ) Hematology Note: Normal (applies MEDGEN (St Comments: to non-numeric Juan C's results) [facility]) ID Date Data Source [id number] 08/27/2019 12:00:00 AM EST MEDGEN (St [facility], ) Name Value Range Interpretation Code Description Data Lisa rce(s) Supporting Document(s ) TSH 3.560 Normal (applies to MEDGEN (St uIU/mL non-numeric Juan C's results) [facility], ) T4,Free(D 1.22 ng/dL Normal (applies to MEDGEN (St irect) non-numeric Juan C's results) [facility]) ID Date Data Source [id number] 08/27/2019 12:00:00 AM EST [facility] ([facility], ) Name Value Range Interpretation Description Data Sup porting Code Source(s) Document(s ) No Urine Test not Normal (applies to MEDGEN (St Received performed non-numeric Juan C's . results) Medical, ) ID Date Data Source [id number] 08/27/2019 12:00:00 AM EST [facility] ([facility], ) Name Value Range Interpretation Description Data Sup porting Code Source(s) Document(s ) Vitamin D, 42.8 Normal (applies to MEDGEN (St 25-Hydroxy ng/mL non-numeric Juan C's results) Medical, ) ID Date Data Source [id number] 08/27/2019 12:00:00 AM EST MEDGEN ( Jul[facility]s [facility], ) Name Value Range Interpretation Description Data Sup porting Code Source(s) Document(s ) Hemoglobin 6.2 % Above high normal MEDGEN (St A1c/Hemoglobin. Juan C's total in Blood Medical, ) ID Date Data Source [id number] 08/27/2019 12:00:00 AM EST [facility] (St [facility], ) Name Value Range Interpretation Description Data Sup porting Code Source(s) Document(s ) Folate 10.5 Normal (applies to MEDGEN (St (Folic ng/mL non-numeric Juan C's Acid), Serum results) Medical, ) Vitamin B12 385 pg/mL Normal (applies to MEDGEN (S t non-numeric Juan C's results) Medical, ) ID Date Data Source [id number] 08/27/2019 12:00:00 AM EST [facility] ([facility], ) Name Value Range Interpretation Description [...] results) Medical, ) ID Date Data Source [id number] 08/27/2019 12:00:00 AM EST [facility] ([facility], ) Name Value Range Interpretation Description [...] Juan C's Blood by Tablet d. results) [facility], ) Glucose Test not Normal (applies MEDGEN (St [Mass/volume] in performe to non-numeric Juan C's Urine collected d. results) [facility], ) for unspecified duration ID Date Data Source [id number] 08/27/2019 12:00:00 AM EST [facility] ([facility], ) Name Value Range Interpretation Description Data Sup porting Code Source(s) Document(s ) Glucose 87 mg/dL Normal (applies MEDGEN (St [Mass/volume] in to non-numeric Juan C's Urine collected for results) [facility], unspecified ) duration Urea nitrogen 36 mg/dL Above high MEDGEN (St [Mass/volume] in normal Juan C's Serum or Plasma [facility], ) Creatinine 2.81 Above high MEDGEN (St [Interpretation] in mg/dL normal Juan C's Urine [facility], ) eGFR If NonAfricn 21 Below low normal MEDGE N (St Am mL/min/1 Juan C's .73 [facility], ) eGFR If Africn Am 24 Below low normal MEDGE N (St mL/min/1 Juan C's .73 [facility], ) Sodium 135 Normal (applies [facility]GEN (St [Moles/volume] in mmol/L to non-numeric Juan C's Serum or Plasma results) [facility], ) BUN/Creatinine 13 Normal (applies MEDGEN (S t Ratio to non-numeric Juan C's results) [facility], ) Potassium 4.1 Normal (applies [facility]GEN (St [Mass/volume] in mmol/L to non-numeric Juan C's Blood results) [facility], ) Chloride 102 Normal (applies [facility]GEN (St [Moles/volume] in mmol/L to non-numeric Juan C's Serum or Plasma results) Medical, ) Calcium 9.8 Normal (applies MEDGEN (St [Moles/volume] in mg/dL to non-numeric Juan C's Urine collected for results) [facility], unspecified ) duration Carbon dioxide, 20 Normal (applies MEDGEN ( St total mmol/L to non-numeric Juan C's [Moles/volume] in results) Medical, Serum or Plasma ) Protein 9.0 g/dL Above high MEDGEN (St [Mass/volume] in normal Juan C's Serum or Plasma [facility], ) Microalbumin 4.2 g/dL Normal (applies MEDGEN (St [Mass/time] in to non-numeric Juan C's Urine collected for results) [facility], unspecified ) duration Globulin, Total 4.8 g/dL Above high MEDGEN (St [facility], ) A/G Ratio 0.9 Below low normal [facility] ([facility], ) Bilirubin.total 0.3 Normal (applies MEDGEN ( St [Mass/volume] in mg/dL to non-numeric Juan C's Serum or Plasma results) [facility], ) Alkaline 53 IU/L Normal (applies [...] Serum or Plasma ID Date Data Source [id number] 08/27/2019 12:00:00 AM EST [facility] (St [facility], ) Name Value Range Interpretation Description Data Sup porting Code Source(s) Document(s ) Leukocytes 11.8 Above high normal MEDGEN (St [#/volume] in x10E3/uL Juan C's Blood by [facility], ) Automated count Erythrocytes 3.28 Below low normal MEDGEN (St [#/volume] in x10E6/uL Juan C's Blood by [facility], ) Automated count Hemoglobin 10.8 Below low normal [facility]GEN (St [Mass/volume] in g/dL [facility] Blood [facility], ) MCV 97 fL Normal (applies MEDGEN (St to non-numeric Juan C's results) [facility], ) Hematocrit 31.7 % Below low normal MEDGEN (St [Volume Juan C's Fraction] of [facility], ) Blood by Automated count MCH 32.9 pg Normal (applies MEDGEN (St to non-numeric Juan C's results) [facility], ) MCHC 34.1 Normal (applies [facility]GEN (St g/dL to non-numeric Juan C's results) [facility], ) RDW 17.5 % Above high normal [facility] ([facility], ) Platelets 237 Normal (applies MEDGEN (St [#/area] in x10E3/uL to non-numeric Juan C's Blood by results) [facility], ) Microscopy high power field Neutrophils [#] 53 % Normal (applies MEDGEN ( St in Body fluid by to non-numeric Juan C's Manual count results) [facility], ) Lymphs 20 % Normal (applies [facility]GEN (St to non-numeric Juan C's results) [facility], ) Eos 12 % Normal (applies [facility]GEN (St to non-numeric Juan C's results) [facility], ) Monocytes 13 % Normal (applies MEDGEN (St [#/volume] in to non-numeric Juan C's Cord blood results) [facility]) Basos 1 % Normal (applies [facility]GEN (St to non-numeric Juan C's results) [facility]) Neutrophils 6.2 Normal (applies MEDGEN (St (Absolute) x10E3/uL to non-numeric Juan C's results) [facility], ) Monocytes(Absolu 1.5 Above high normal MEDGE N (St te) x10E3/uL Juan C's [facility], ) Lymphs 2.4 Normal (applies MEDGEN (St (Absolute) x10E3/uL to non-numeric Juan C's results) [facility], ) Eos (Absolute) 1.5 Above high normal [facility] (St x10E3/uL Juan C's [facility], ) Baso (Absolute) 0.1 Normal (applies MEDGEN ( St x10E3/uL to non-numeric Juna C's results) [facility]) Immature 1 % Normal (applies MEDGEN (St Granulocytes to non-numeric Juan C's results) [facility]) Immature Grans 0.2 Above high normal [facility]GEN (St (Abs) x10E3/uL Juan C's [facility], ) Hematology Note: Normal (applies MEDGEN (St Comments: to non-numeric Juan C's results) Medical, ) ID Date Data Source [id number] 08/27/2019 12:00:00 AM EST [facility] ([facility], ) Name Value Range Interpretation Code Description Data Lisa rce(s) Supporting Document(s ) TSH 3.560 Normal (applies to [facility] (St uIU/mL non-numeric Juan C's results) Medical, ) T4,Free(D 1.22 ng/dL Normal (applies to [facility]GEN (St irect) non-numeric Juan C's results) Medical, ) ID Date Data Source [id number] 08/27/2019 12:00:00 AM EST [facility] ([facility], ) Name Value Range Interpretation Description Data Sup porting Code Source(s) Document(s ) No Urine Test not Normal (applies to MEDGEN (St Received performed non-numeric Juan C's . results) Medical, ) ID Date Data Source [id number] 08/27/2019 12:00:00 AM EST [facility] ([facility], ) Name Value Range Interpretation Description Data Sup porting Code Source(s) Document(s ) Vitamin D, 42.8 Normal (applies to [facility]GEN (St 25-Hydroxy ng/mL non-numeric Juan C's results) Medical, ) ID Date Data Source [id number] 08/27/2019 12:00:00 AM EST [facility] ([facility], ) Name Value Range Interpretation Description Data Sup porting Code Source(s) Document(s ) Hemoglobin 6.2 % Above high normal [facility]GEN (St A1c/Hemoglobin. Juan C's total in Blood Medical, ) ID Date Data Source [id number] 08/27/2019 12:00:00 AM EST [facility] ([facility], ) Name Value Range Interpretation Description Data Sup porting Code Source(s) Document(s ) Folate 10.5 Normal (applies to MEDGEN (St (Folic ng/mL non-numeric Juan C's Acid), Serum results) Medical, ) Vitamin B12 385 pg/mL Normal (applies to MEDGEN (S t non-numeric Juan C's results) Medical, ) ID Date Data Source [id number] 08/27/2019 12:00:00 AM EST [facility] ([facility], ) Name Value Range Interpretation Description Data Sup porting Code Source(s) Document(s ) Cholesterol 80 mg/dL Below low normal [facility]GEN (St [Mass/volume] in Juan C's Serum or Plasma [facility], ) Triglyceride 200 Above high normal MEDGEN (S t [Mass/volume] in mg/dL Juan C's Serum or Plasma [facility], ) HDL Cholesterol 25 mg/dL Below low normal [facility] ([facility], ) VLDL Cholesterol 40 mg/dL Normal (applies [facility]GEN (St Nils to non-numeric Juan C's results) [facility], ) LDL Cholesterol 15 mg/dL Normal (applies [facility]GEN ( St Calc to non-numeric Juan C's results) [facility], ) ID Date Data Source [id number] 08/27/2019 12:00:00 AM EST [facility] ([facility] ) Name Value Range Interpretation Description Data Sup porting Code Source(s) Document(s ) Specific gravity Test not Normal (applies [facility]GEN (St of Pericardial performe to non-numeric Juan C's fluid by d. results) Medical, ) Refractometry pH of Lower Test not Normal (applies MEDGEN (St respiratory performe to non-numeric Juan C's specimen d. results) [facility], ) Protein Test not Normal (applies MEDGEN (St [Mass/volume] in performe to non-numeric Juan C's Lower d. results) [facility], ) respiratory specimen Glucose Test not Normal (applies MEDGEN (St [Mass/volume] in performe to non-numeric Juan C's Urine collected d. results) [facility], ) for unspecified duration Ketones Test not Normal (applies MEDGEN (St [Presence] in performe to non-numeric Juan C's Blood by Tablet d. results) [facility], ) ID Date Data Source [id number] 08/27/2019 12:00:00 AM EST MEDGEN ([facility] [place] [place]) Name Value Range Interpretation Description Data Sup porting Code Source(s) Document(s ) Glucose 87 mg/dL Normal (applies MEDGEN (St [Mass/volume] in to non-numeric Juan C's Urine collected for results) [facility] duration Urea nitrogen 36 mg/dL Above high MEDGEN (St [Mass/volume] in normal Juan C's Serum or Plasma [facility], ) Creatinine 2.81 Above high MEDGEN (St [Interpretation] in mg/dL normal Juan C's Urine Medical, ) eGFR If NonAfricn 21 Below low normal MEDGE N (St Am mL/min/1 [facility] [address], ) BUN/Creatinine 13 Normal (applies MEDGEN (S t Ratio to non-numeric Juan C's results) Medical, ) eGFR If Africn Am 24 Below low normal MEDGE N (St mL/min/1 [facility]'s [facility], ) Sodium 135 Normal (applies MEDGEN [...] Serum or Plasma ID Date Data Source [id number] 08/27/2019 12:00:00 AM EST [facility] ([facility], ) Name Value Range Interpretation Description Data Sup porting Code Source(s) Document(s ) Leukocytes 11.8 Above high normal MEDGEN (St [#/volume] in x10E3/uL Juan C's Blood by [facility], ) Automated count Erythrocytes 3.28 Below low normal [facility]GEN (St [#/volume] in x10E6/uL Juan C's Blood by [facility], ) Automated count Hematocrit 31.7 % Below low normal MEDGEN (St [Volume Juan C's Fraction] of [facility], ) Blood by Automated count Hemoglobin 10.8 Below low normal [facility]GEN (St [Mass/volume] in g/dL Juan C's Blood [facility], ) MCV 97 fL Normal (applies MEDGEN (St to non-numeric Juan C's results) [facility], ) MCHC 34.1 Normal (applies MEDGEN (St g/dL to non-numeric Juan C's results) [facility], ) MCH 32.9 pg Normal (applies MEDGEN (St to non-numeric Juan C's results) [facility], ) RDW 17.5 % Above high normal [facility] ([facility], ) Platelets 237 Normal (applies MEDGEN (St [#/area] in x10E3/uL to non-numeric Juan C's Blood by results) [facility], ) Microscopy high power field Neutrophils [#] 53 % Normal (applies MEDGEN ( St in Body fluid by to non-numeric Juan C's Manual count results) [facility], ) Lymphs 20 % Normal (applies [facility]GEN (St to non-numeric Juan C's results) [facility], ) Monocytes 13 % Normal (applies MEDGEN (St [#/volume] in to non-numeric Juan C's Cord blood results) [facility], ) Basos 1 % Normal (applies MEDGEN (St to non-numeric Juan C's results) [facility], ) Eos 12 % Normal (applies MEDGEN (St to non-numeric Juan C's results) [facility], ) Neutrophils 6.2 Normal (applies MEDGEN (St (Absolute) x10E3/uL to non-numeric Juan C's results) Medical, ) Lymphs 2.4 Normal (applies MEDGEN (St (Absolute) x10E3/uL to non-numeric Juan C's results) [facility], ) Monocytes(Absolu 1.5 Above high normal MEDGE N (St te) x10E3/uL Juan C's [facility], ) Eos (Absolute) 1.5 Above high normal MEDGEN (St x10E3/uL [facility], ) Immature 1 % Normal (applies MEDGEN (St Granulocytes to non-numeric Juan C's results) [facility], ) Baso (Absolute) 0.1 Normal (applies MEDGEN ( St x10E3/uL to non-numeric Juan C's results) [facility], ) Hematology Note: Normal (applies MEDGEN (St Comments: to non-numeric Juan C's results) [facility], ) Immature Grans 0.2 Above high normal MEDGEN (St (Abs) x10E3/uL Juan C's [facility], ) ID Date Data Source [id number] 08/27/2019 12:00:00 AM EST [facility] (St [facility], ) Name Value Range Interpretation Code Description Data Lisa rce(s) Supporting Document(s ) TSH 3.560 Normal (applies to MEDGEN (St uIU/mL non-numeric Juan C's results) [facility], ) T4,Free(D 1.22 ng/dL Normal (applies to MEDGEN (St irect) non-numeric Juan C's results) [facility], ) ID Date Data Source [id number] 08/27/2019 12:00:00 AM EST [facility] ([facility], ) Name Value Range Interpretation Description Data Sup porting Code Source(s) Document(s ) No Urine Test not Normal (applies to MEDGEN (St Received performed non-numeric Juan C's . results) [facility], ) ID Date Data Source [id number] 08/27/2019 12:00:00 AM EST [facility] ([facility], ) Name Value Range Interpretation Description Data Sup porting Code Source(s) Document(s ) Vitamin D, 42.8 Normal (applies to MEDGEN (St 25-Hydroxy ng/mL non-numeric Juan C's results) [facility], ) ID Date Data Source [id number] 08/27/2019 12:00:00 AM EST [facility] ([facility], ) Name Value Range Interpretation Description Data Sup porting Code Source(s) Document(s ) Hemoglobin 6.2 % Above high normal MEDGEN (St A1c/Hemoglobin. Juan C's total in Blood [facility], ) ID Date Data Source [id number] 08/27/2019 12:00:00 AM EST [facility] ([facility], ) Name Value Range Interpretation Description Data Sup porting Code Source(s) Document(s ) Vitamin B12 385 pg/mL Normal (applies to MEDGEN (S t non-numeric Juan C's results) [facility], ) Folate 10.5 Normal (applies to MEDGEN (St (Folic ng/mL non-numeric Juan C's Acid), Serum results) [facility], ) ID Date Data Source [id number] 08/27/2019 12:00:00 AM EST [facility] ([facility], ) Name Value Range Interpretation Description Data Sup porting Code Source(s) Document(s ) Cholesterol 80 mg/dL Below low normal MEDGEN (St [Mass/volume] in Juan C's Serum or Plasma [facility], ) Triglyceride 200 Above high normal MEDGEN (S t [Mass/volume] in mg/dL Juan C's Serum or Plasma [facility], ) HDL Cholesterol 25 mg/dL Below low normal [facility] ([facility], ) LDL Cholesterol 15 mg/dL Normal (applies MEDGEN ( St Calc to non-numeric Juan C's results) [facility]) VLDL Cholesterol 40 mg/dL Normal (applies MEDGEN (St Nils to non-numeric Juan C's results) [facility], ) ID Date Data Source [id number] 08/27/2019 12:00:00 AM EST [facility] ([facility], ) Name Value Range Interpretation Description Data Sup porting Code Source(s) Document(s ) Specific gravity Test not Normal (applies MEDGEN (St of Pericardial performe to non-numeric Juan C's fluid by d. results) [facility], ) Refractometry Protein Test not Normal (applies MEDGEN (St [Mass/volume] in performe to non-numeric Juan C's Lower d. results) [facility], ) respiratory specimen pH of Lower Test not Normal (applies MEDGEN (St respiratory performe to non-numeric Juan C's specimen d. results) [facility], ) Ketones Test not Normal (applies MEDGEN (St [Presence] in performe to non-numeric Juan C's Blood by Tablet d. results) Medical, ) Glucose Test not Normal (applies MEDGEN (St [Mass/volume] in performe to non-numeric Juan C's Urine collected d. results) Medical, ) for unspecified duration ID Date Data Source [id number] 08/27/2019 12:00:00 AM EST [facility] ([facility], ) Name Value Range Interpretation Description [...] N (St Am mL/min/1 Juan C's .73 [facility], ) eGFR If Africn Am 24 Below low normal MEDGE N (St mL/min/1 Juan C's .73 [facility], ) BUN/Creatinine 13 Normal (applies MEDGEN [...] in normal Juan C's Serum or Plasma [facility], ) Microalbumin 4.2 g/dL Normal (applies MEDGEN (St [Mass/time] in to non-numeric Juan C's Urine collected for results) [facility], unspecified ) duration Globulin, Total 4.8 g/dL Above high MEDGEN (St normal [facility], ) Bilirubin.total 0.3 Normal (applies MEDGEN ( St [Mass/volume] in mg/dL to non-numeric Juan C's Serum or Plasma results) [facility], ) A/G Ratio 0.9 Below low normal [facility] ([facility], ) Alkaline 53 IU/L Normal (applies MEDGEN (St phosphatase to non-numeric Juan C's [Enzymatic results) Medical, activity/volume] in ) Serum, Plasma or Blood Aspartate 22 IU/L Normal (applies MEDGEN (St aminotransferase to non-numeric Juan C's [Enzymatic results) [facility], activity/volume] in ) Serum or Plasma Alanine 20 IU/L Normal (applies MEDGEN (St aminotransferase to non-numeric Juan C's [Enzymatic results) [facility], activity/volume] in ) Serum or Plasma ID Date Data Source [id number] 08/27/2019 12:00:00 AM EST [facility] ([facility], ) Name Value Range Interpretation Description Data Sup porting Code Source(s) Document(s ) Leukocytes 11.8 Above high normal MEDGEN (St [#/volume] in x10E3/uL Juan C's Blood by [facility], ) Automated count Erythrocytes 3.28 Below low normal MEDGEN (St [#/volume] in x10E6/uL Juan C's Blood by [facility], ) Automated count Hemoglobin 10.8 Below low normal MEDGEN (St [Mass/volume] in g/dL Juan C's Blood [facility], ) Hematocrit 31.7 % Below low normal MEDGEN (St [Volume Juan C's Fraction] of [facility], ) Blood by Automated count MCH 32.9 pg Normal (applies MEDGEN (St to non-numeric Juan C's results) [facility], ) MCV 97 fL Normal (applies MEDGEN (St to non-numeric Juan C's results) [facility], ) MCHC 34.1 Normal (applies MEDGEN (St g/dL to non-numeric Juan C's results) [facility], ) RDW 17.5 % Above high normal [facility] ([facility], ) Platelets 237 Normal (applies MEDGEN (St [#/area] in x10E3/uL to non-numeric Juan C's Blood by results) [facility]) Microscopy high power field Lymphs 20 % Normal (applies MEDGEN (St to non-numeric Juan C's results) [facility]) Neutrophils [#] 53 % Normal (applies MEDGEN ( St in Body fluid by to non-numeric Juan C's Manual count results) [facility]) Monocytes 13 % Normal (applies MEDGEN (St [#/volume] in to non-numeric Juan C's Cord blood results) [facility]) Eos 12 % Normal (applies MEDGEN (St to non-numeric Juan C's results) [facility]) Basos 1 % Normal (applies MEDGEN (St to non-numeric Juan C's results) [facility]) Neutrophils 6.2 Normal (applies MEDGEN (St (Absolute) x10E3/uL to non-numeric Juan C's results) [facility]) Lymphs 2.4 Normal (applies MEDGEN (St (Absolute) x10E3/uL to non-numeric Juan C's results) [facility]) Eos (Absolute) 1.5 Above high normal MEDGEN (St x10E3/uL [facility]) Monocytes(Absolu 1.5 Above high normal MEDGE N (St te) x10E3/uL [facility]) Immature 1 % Normal (applies MEDGEN (St Granulocytes to non-numeric Juan C's results) [facility]) Baso (Absolute) 0.1 Normal (applies MEDGEN ( St x10E3/uL to non-numeric Juan C's results) [facility]) Immature Grans 0.2 Above high normal MEDGEN (St (Abs) x10E3/uL [facility]) Hematology Note: Normal (applies MEDGEN (St Comments: to non-numeric Juan C's results) [facility]) ID Date Data Source [id number] 08/27/2019 12:00:00 AM EST [facility] ([facility], ) Name Value Range Interpretation Code Description Data Lisa rce(s) Supporting Document(s ) TSH 3.560 Normal (applies to MEDGEN (St uIU/mL non-numeric [facility] results) [facility]) T4,Free(D 1.22 ng/dL Normal (applies to MEDGEN [...] 12:00:00 AM EDT smoked smoked [facility]) Smoking 04/12/2020 Denies current [...] having a colonoscopy in the colonoscopy in [facility] past past Smoking 03/24/2020 Unknown if ever [...] Heart rate 79 /min 79 /min MEDGEN ([facility] , ) Inhaled oxygen 95 % 95 % MEDGEN ([facility], ) Body mass index 22.7 kg/m2 22.7 kg/m2 MEDGEN (S t (BMI) [Ratio] [facility], ) Diastolic blood 80 mm[Hg] 80 mm[Hg] MEDGEN (S t pressure [facility] , ) Systolic blood 160 mm[Hg] 160 mm[Hg] MEDGEN ([facility] , ) Body weight 128 lb 128 lb MEDGEN ([facility] , ) Body height 63 in 63 in MEDGEN ([facility] , ) Heart rate 84 /min 84 /min MEDGEN ([facility] , ) Respiratory rate 14 /min 14 /min MEDGEN ( [facility] , ) Body mass index 22.3 kg/m2 22.3 kg/m2 MEDGEN (S t (BMI) [Ratio] [facility], ) Diastolic blood 86 mm[Hg] 86 mm[Hg] MEDGEN (S t pressure [facility] , ) Systolic blood 166 mm[Hg] 166 mm[Hg] [facility] ) Body weight 126 lb 126 lb MEDGEN ([facility] , ) Body height 63 in 63 in MEDGEN ([facility] , ) Heart rate 84 /min 84 /min MEDGEN ([facility] , ) Respiratory rate 14 /min 14 /min MEDGEN ( [facility] , ) Body mass index 22.3 kg/m2 22.3 kg/m2 MEDGEN (S t (BMI) [Ratio] [facility], ) Diastolic blood 86 mm[Hg] 86 mm[Hg] MEDGEN (S t pressure [facility] , ) Systolic blood 166 mm[Hg] 166 mm[Hg] [facility] ) Body weight 126 lb 126 lb MEDGEN ([facility]) Body height 63 in 63 in MEDGEN ([facility] , ) Heart rate 84 /min 84 /min MEDGEN ([facility] , ) Respiratory rate 14 /min 14 /min MEDGEN ( [facility] , ) Body mass index 22.1 kg/m2 22.1 kg/m2 MEDGEN (S t (BMI) [Ratio] [facility], ) Diastolic blood 80 mm[Hg] 80 mm[Hg] MEDGEN (S t pressure [facility] , ) Systolic blood 154 mm[Hg] 154 mm[Hg] [facility] ) Body weight 125 lb 125 lb MEDGEN ([facility]) Body height 63 in 63 in MEDGEN ([facility] , ) Heart rate 84 /min 84 /min MEDGEN ([facility] , ) Respiratory rate 14 /min 14 /min MEDGEN ( [facility] , ) Body mass index 22.1 kg/m2 22.1 kg/m2 MEDGEN (S t (BMI) [Ratio] [facility], ) Diastolic blood 80 mm[Hg] 80 mm[Hg] MEDGEN (S t pressure [facility] , ) Systolic blood 154 mm[Hg] 154 mm[Hg] MEDGEN (St pressure [facility] , ) Body weight 125 lb 125 lb MEDGEN ([facility]) Body height 63 in 63 in MEDGEN ([facility] , ) Heart rate 84 /min 84 /min MEDGEN ([facility] , ) Respiratory rate 14 /min 14 /min MEDGEN ( [facility] , ) Body mass index 22.1 kg/m2 22.1 kg/m2 MEDGEN (S t (BMI) [Ratio] [facility], ) Diastolic blood 80 mm[Hg] 80 mm[Hg] MEDGEN (S t pressure [facility] , ) Systolic blood 154 mm[Hg] 154 mm[Hg] MEDGEN (St pressure [facility] , ) Body weight 125 lb 125 lb MEDGEN ([facility] , ) Body height 63 in 63 in MEDGEN ([facility] , ) Heart rate 84 /min 84 /min MEDGEN ([facility] , ) Respiratory rate 14 /min 14 /min MEDGEN ( [facility] , ) Body mass index 22.3 kg/m2 22.3 kg/m2 MEDGEN (S t (BMI) [Ratio] [facility], ) Diastolic blood 94 mm[Hg] 94 mm[Hg] MEDGEN (S t pressure [facility] , ) Systolic blood 180 mm[Hg] 180 mm[Hg] [facility] ) Body weight 126 lb 126 lb MEDGEN ([facility] , ) Body height 63 in 63 in MEDGEN ([facility] , ) Heart rate 84 /min 84 /min MEDGEN ([facility] , ) Respiratory rate 14 /min 14 /min MEDGEN ( [facility] , ) Body mass index 22.3 kg/m2 22.3 kg/m2 MEDGEN (S t (BMI) [Ratio] [facility], ) Diastolic blood 94 mm[Hg] 94 mm[Hg] MEDGEN (S t pressure [facility] , ) Systolic blood 180 mm[Hg] 180 mm[Hg] MEDGEN (St pressure [facility] , ) Body weight 126 lb 126 lb MEDGEN ([facility] , ) Body height 63 in 63 in MEDGEN ([facility] , ) Heart rate 84 /min 84 /min MEDGEN ([facility] , ) Respiratory rate 14 /min 14 /min MEDGEN ( [facility] , ) Body mass index 22.3 kg/m2 22.3 kg/m2 MEDGEN (S t (BMI) [Ratio] [facility], ) Diastolic blood 94 mm[Hg] 94 mm[Hg] MEDGEN (S t pressure [facility]) Systolic blood 180 mm[Hg] 180 mm[Hg] MEDGEN ([facility]) Body weight 126 lb 126 lb MEDGEN ([facility]) Body height 63 in 63 in MEDGEN ([facility]) Heart rate 84 /min 84 /min MEDGEN ([facility]) Respiratory rate 14 /min 14 /min MEDGEN ( [facility]) Body mass index 22.3 kg/m2 22.3 kg/m2 MEDGEN (S t (BMI) [Ratio] [facility], ) Diastolic blood 94 mm[Hg] 94 mm[Hg] MEDGEN (S t pressure [facility]) Systolic blood 180 mm[Hg] 180 mm[Hg] MEDGEN ([facility]) Body weight 126 lb 126 lb MEDGEN ([facility]) Body height 63 in 63 in MEDGEN ([facility]) Heart rate 84 /min 84 /min MEDGEN ([facility]) Respiratory rate 15 /min 15 /min MEDGEN ( [facility]) Inhaled oxygen 92 % 92 % MEDGEN ([facility], ) Body mass index 23.2 kg/m2 23.2 kg/m2 MEDGEN (S t (BMI) [Ratio] [facility], ) Diastolic blood 89 mm[Hg] 89 mm[Hg] MEDGEN (S t pressure [facility] , ) Systolic blood 188 mm[Hg] 188 mm[Hg] MEDGEN ([facility]) Body weight 131 lb 131 lb MEDGEN ([facility]) Body height 63 in 63 in MEDGEN ([facility]) Heart rate 84 /min 84 /min MEDGEN ([facility]) Respiratory rate 15 /min 15 /min MEDGEN ( [facility]) Inhaled oxygen 92 % 92 % MEDGEN ([facility], ) Body mass index 23.2 kg/m2 23.2 kg/m2 MEDGEN (S t (BMI) [Ratio] [facility], ) Diastolic blood 89 mm[Hg] 89 mm[Hg] MEDGEN (S t pressure [facility]) Systolic blood 188 mm[Hg] 188 mm[Hg] MEDGEN ([facility] , ) Body weight 131 lb 131 lb MEDGEN ([facility] , ) Body height 63 in 63 in MEDGEN ([facility] , ) Heart rate 84 /min 84 /min MEDGEN ([facility] , ) Respiratory rate 15 /min 15 /min MEDGEN ( [facility] , ) Inhaled oxygen 92 % 92 % MEDGEN (St concentration [facility], ) Body mass index 23.2 kg/m2 23.2 kg/m2 MEDGEN (S t (BMI) [Ratio] [facility], ) Diastolic blood 89 mm[Hg] 89 mm[Hg] MEDGEN (S t pressure [facility] , ) Systolic blood 188 mm[Hg] 188 mm[Hg] MEDGEN ([facility] , ) Body weight 131 lb 131 lb MEDGEN ([facility] , ) Body height 63 in 63 in MEDGEN ([facility] , ) Heart rate 84 /min 84 /min MED[facility] ([facility] , ) Respiratory rate 15 /min 15 /min MEDGEN ( [facility] , ) Inhaled oxygen 92 % 92 % MEDGEN ([facility], ) Body mass index 23.2 kg/m2 23.2 kg/m2 MEDGEN (S t (BMI) [Ratio] [facility], ) Diastolic blood 89 mm[Hg] 89 mm[Hg] MEDGEN (S t pressure [facility] , ) Systolic blood 188 mm[Hg] 188 mm[Hg] MEDGEN ([facility] , ) Body weight 131 lb 131 lb MEDGEN ([facility] , ) Body height 63 in 63 in MEDGEN ([facility] , ) Heart rate 84 /min 84 /min MEDGEN ([facility] , ) Respiratory rate 15 /min 15 /min MEDGEN ( [facility] , ) Inhaled oxygen 92 % 92 % MEDGEN ([facility], ) Body mass index 23.2 kg/m2 23.2 kg/m2 MEDGEN (S t (BMI) [Ratio] [facility], ) Diastolic blood 89 mm[Hg] 89 mm[Hg] MEDGEN (S t pressure [facility] , ) Systolic blood 188 mm[Hg] 188 mm[Hg] MEDGEN ([facility] , ) Body weight 131 lb 131 lb MEDGEN ([facility]) Body height 63 in 63 in MEDGEN ([facility]) Respiratory rate 16 /min 16 /min MEDGEN ( [facility] , ) Body mass index 23.2 kg/m2 23.2 kg/m2 MEDGEN (S t (BMI) [Ratio] [facility], ) Diastolic blood 90 mm[Hg] 90 mm[Hg] MEDGEN (S t pressure [facility] , ) Systolic blood 180 mm[Hg] 180 mm[Hg] [facility] ) Body weight 131 lb 131 lb MEDGEN ([facility] , ) Body height 63 in 63 in MEDGEN ([facility]) Respiratory rate 16 /min 16 /min MEDGEN ( [facility] , ) Body mass index 23.2 kg/m2 23.2 kg/m2 MEDGEN (S t (BMI) [Ratio] [facility], ) Diastolic blood 90 mm[Hg] 90 mm[Hg] MEDGEN (S t pressure [facility] , ) Systolic blood 180 mm[Hg] 180 mm[Hg] [facility] [place] Body weight 131 lb 131 lb MEDGEN ([facility]) Body height 63 in 63 in MEDGEN ([facility]) Respiratory rate 16 /min 16 /min MEDGEN ( [facility] , ) Body mass index 23.2 kg/m2 23.2 kg/m2 MEDGEN (S t (BMI) [Ratio] [facility], ) Diastolic blood 90 mm[Hg] 90 mm[Hg] MEDGEN (S t pressure [facility] , ) Systolic blood 180 mm[Hg] 180 mm[Hg] [facility] [place] Body weight 131 lb 131 lb MEDGEN ([facility]) Body height 63 in 63 in MEDGEN ([facility]) Respiratory rate 16 /min 16 /min MEDGEN ( [facility]) Body mass index 23.2 kg/m2 23.2 kg/m2 MEDGEN (S t (BMI) [Ratio] [facility], ) Diastolic blood 90 mm[Hg] 90 mm[Hg] MEDGEN (S t pressure [facility]) Systolic blood 180 mm[Hg] 180 mm[Hg] MEDGEN ([facility]) Body weight 131 lb 131 lb MEDGEN ([facility]) Body height 63 in 63 in MEDGEN ([facility]) Respiratory rate 16 /min 16 /min MEDGEN ( [facility]) Body mass index 23.2 kg/m2 23.2 kg/m2 MEDGEN (S t (BMI) [Ratio] [facility], ) Diastolic blood 90 mm[Hg] 90 mm[Hg] MEDGEN (S t pressure [facility]) Systolic blood 180 mm[Hg] 180 mm[Hg] MEDGEN ([facility]) Body weight 131 lb 131 lb MEDGEN ([facility]) Body height 63 in 63 in MEDGEN ([facility]) Respiratory rate 16 /min 16 /min MEDGEN ( [facility]) Body mass index 23.2 kg/m2 23.2 kg/m2 MEDGEN (S t (BMI) [Ratio] [facility], ) Diastolic blood 90 mm[Hg] 90 mm[Hg] MEDGEN (S t pressure [facility]) Systolic blood 180 mm[Hg] 180 mm[Hg] MEDGEN ([facility]) Body weight 131 lb 131 lb MEDGEN ([facility]) Body height 63 in 63 in MEDGEN ([facility]) Heart rate 72 /min 72 /min MEDGEN ([facility]) Respiratory rate 16 /min 16 /min MEDGEN ( [facility]) Body mass index 23.2 kg/m2 23.2 kg/m2 MEDGEN (S t (BMI) [Ratio] [facility], ) Diastolic blood 58 mm[Hg] 58 mm[Hg] MEDGEN (S t pressure [facility]) Systolic blood 110 mm[Hg] 110 mm[Hg] MEDGEN ([facility]) Body weight 131 lb 131 lb MEDGEN ([facility]) Body height 63 in 63 in MEDGEN ([facility]) Heart rate 72 /min 72 /min MEDGEN ([facility]) Respiratory rate 16 /min 16 /min MEDGEN ( [facility]) Body mass index 23.2 kg/m2 23.2 kg/m2 MEDGEN (S t (BMI) [Ratio] [facility], ) Diastolic blood 58 mm[Hg] 58 mm[Hg] MEDGEN (S t [facility]) Systolic blood 110 mm[Hg] 110 mm[Hg] MEDGEN ([facility]) Body weight 131 lb 131 lb MEDGEN ([facility]) Body height 63 in 63 in MEDGEN ([facility]) Heart rate 72 /min 72 /min MEDGEN ([facility]) Respiratory rate 16 /min 16 /min MEDGEN ( [facility]) Body mass index 23.2 kg/m2 23.2 kg/m2 MEDGEN (S t (BMI) [Ratio] [facility], ) Diastolic blood 58 mm[Hg] 58 mm[Hg] MEDGEN (S [facility]) Systolic blood 110 mm[Hg] 110 mm[Hg] MEDGEN ([facility]) Body weight 131 lb 131 lb MEDGEN ([facility]) Body height 63 in 63 in MEDGEN ([facility]) Heart rate 72 /min 72 /min MEDGEN ([facility]) Respiratory rate 16 /min 16 /min MEDGEN ( [facility]) Body mass index 23.2 kg/m2 23.2 kg/m2 MEDGEN (S t (BMI) [Ratio] [facility]) Diastolic blood 58 mm[Hg] 58 mm[Hg] MEDGEN (S t pressure [facility]) Systolic blood 110 mm[Hg] 110 mm[Hg] MEDGEN ([facility]) Body weight 131 lb 131 lb MEDGEN ([facility]) Body height 63 in 63 in MEDGEN ([facility]) Heart rate 72 /min 72 /min MEDGEN ([facility]) Respiratory rate 16 /min 16 /min MEDGEN ( [facility]) Body mass index 23.2 kg/m2 23.2 kg/m2 MEDGEN (S t (BMI) [Ratio] [facility], ) Diastolic blood 58 mm[Hg] 58 mm[Hg] MEDGEN (S t pressure [facility] , ) Systolic blood 110 mm[Hg] 110 mm[Hg] MEDGEN ([facility] , ) Body weight 131 lb 131 lb MEDGEN ([facility]) Body height 63 in 63 in MEDGEN ([facility]) Heart rate 72 /min 72 /min MEDGEN ([facility]) Respiratory rate 16 /min 16 /min MEDGEN ( [facility] , ) Body mass index 23.2 kg/m2 23.2 kg/m2 MEDGEN (S t (BMI) [Ratio] [facility], ) Diastolic blood 58 mm[Hg] 58 mm[Hg] MEDGEN (S t pressure [facility] , ) Systolic blood 110 mm[Hg] 110 mm[Hg] MEDGEN ([facility]) Body weight 131 lb 131 lb MEDGEN ([facility]) Body height 63 in 63 in MEDGEN ([facility]) Heart rate 72 /min 72 /min MEDGEN ([facility]) Respiratory rate 16 /min 16 /min MEDGEN ( [facility]) Body mass index 23.2 kg/m2 23.2 kg/m2 MEDGEN (S t (BMI) [Ratio] [facility], ) Diastolic blood 58 mm[Hg] 58 mm[Hg] MEDGEN (S t pressure [facility] , ) Systolic blood 110 mm[Hg] 110 mm[Hg] [facility] [place] Body weight 131 lb 131 lb MEDGEN ([facility]) Body height 63 in 63 in MEDGEN ([facility]) Heart rate 58 /min 58 /min MEDGEN ([facility]) Inhaled oxygen 96 % 96 % MEDGEN ([facility], ) Diastolic blood 58 mm[Hg] 58 mm[Hg] MEDGEN (S t pressure [facility] , ) Systolic blood 120 mm[Hg] 120 mm[Hg] MEDGEN ([facility] , ) Body weight 126 lb 126 lb MEDGEN ([facility] , ) Heart rate 58 /min 58 /min MEDGEN ([facility] , ) Inhaled oxygen 96 % 96 % MEDGEN ([facility], ) Diastolic blood 58 mm[Hg] 58 mm[Hg] MEDGEN (S t pressure [facility] , ) Systolic blood 120 mm[Hg] 120 mm[Hg] MEDGEN ([facility] , ) Body weight 126 lb 126 lb MEDGEN ([facility] , ) Heart rate 58 /min 58 /min MEDGEN ([facility] , ) Inhaled oxygen 96 % 96 % MEDGEN ([facility], ) Diastolic blood 58 mm[Hg] 58 mm[Hg] MEDGEN (S t pressure [facility] , ) Systolic blood 120 mm[Hg] 120 mm[Hg] MEDGEN ([facility] , ) Body weight 126 lb 126 lb MEDGEN ([facility] , ) Heart rate 58 /min 58 /min MEDGEN ([facility] , ) Inhaled oxygen 96 % 96 % MEDGEN ([facility], ) Diastolic blood 58 mm[Hg] 58 mm[Hg] MEDGEN (S t pressure [facility] , ) Systolic blood 120 mm[Hg] 120 mm[Hg] MEDGEN ([facility] , ) Body weight 126 lb 126 lb MEDGEN ([facility] , ) Heart rate 58 /min 58 /min MEDGEN ([facility] , ) Inhaled oxygen 96 % 96 % MEDGEN ([facility], ) Diastolic blood 58 mm[Hg] 58 mm[Hg] MEDGEN (S t pressure [facility] , ) Systolic blood 120 mm[Hg] 120 mm[Hg] MEDGEN ([facility] , ) Body weight 126 lb 126 lb MEDGEN ([facility] ) Heart rate 58 /min 58 /min MEDGEN ([facility] , ) Inhaled oxygen 96 % 96 % MEDGEN (St concentration [facility], ) Diastolic blood 58 mm[Hg] 58 mm[Hg] MEDGEN (S t pressure [facility] , ) Systolic blood 120 mm[Hg] 120 mm[Hg] MEDGEN ([facility] , ) Body weight 126 lb 126 lb MEDGEN ([facility] , ) Heart rate 58 /min 58 /min MEDGEN ([facility] , ) Inhaled oxygen 96 % 96 % MEDGEN ([facility], ) Diastolic blood 58 mm[Hg] 58 mm[Hg] MEDGEN (S t pressure [facility] , ) Systolic blood 120 mm[Hg] 120 mm[Hg] MEDGEN ([facility] , ) Body weight 126 lb 126 lb MEDGEN ([facility] , ) Heart rate 58 /min 58 /min MEDGEN ([facility] , ) Inhaled oxygen 96 % 96 % MEDGEN ([facility], ) Diastolic blood 58 mm[Hg] 58 mm[Hg] MEDGEN (S t pressure [facility] , ) Systolic blood 120 mm[Hg] 120 mm[Hg] MEDGEN ([facility] , ) Body weight 126 lb 126 lb MEDGEN ([facility] , ) Heart rate 81 /min 81 /min MEDGEN ([facility] , ) Respiratory rate 12 /min 12 /min MEDGEN ( [facility] , ) Body temperature 98 F 98 F MEDGEN ( [facility] , ) Inhaled oxygen 100 % 100 % MEDGEN (St concentration [facility], ) Diastolic blood 78 mm[Hg] 78 mm[Hg] MEDGEN (S t pressure [facility] , ) Systolic blood 136 mm[Hg] 136 mm[Hg] MEDGEN ([facility] , ) Heart rate 81 /min 81 /min MEDGEN ([facility] , ) Respiratory rate 12 /min 12 /min MEDGEN ( [facility] , ) Body temperature 98 F 98 F MEDGEN ( [facility] , ) Inhaled oxygen 100 % 100 % MEDGEN ([facility], ) Diastolic blood 78 mm[Hg] [...] Inhaled oxygen 100 % 100 % MEDGEN ([facility], ) Diastolic blood 78 mm[Hg] 78 mm[Hg] MEDGEN (S t pressure [facility] , ) Systolic blood 136 mm[Hg] 136 mm[Hg] MEDGEN ([facility] , ) Heart rate 81 /min 81 /min MEDGEN ([facility] , ) Respiratory rate 12 /min 12 /min MEDGEN ( [facility] , ) Body temperature 98 F 98 F MEDGEN ( [facility] , ) Inhaled oxygen 100 % 100 % MEDGEN ([facility], ) Diastolic blood 78 mm[Hg] 78 mm[Hg] MEDGEN (S t pressure [facility] , ) Systolic blood 136 mm[Hg] 136 mm[Hg] MEDGEN ([facility] , ) Heart rate 81 /min 81 /min MEDGEN ([facility] , ) Respiratory rate 12 /min 12 /min MEDGEN ( [facility] , ) Body temperature 98 F 98 F MEDGEN ( [facility] , ) Inhaled oxygen 100 % 100 % MEDGEN ([facility], ) Diastolic blood 78 mm[Hg] 78 mm[Hg] MEDGEN (S t pressure [facility] , ) Systolic blood 136 mm[Hg] 136 mm[Hg] MEDGEN ([facility] , ) Heart rate 81 /min 81 /min MEDGEN ([facility] , ) Respiratory rate 12 /min 12 /min MEDGEN ( [facility] , ) Body temperature 98 F 98 F MEDGEN ( [facility] , ) Inhaled oxygen 100 % [...] 100 % MEDGEN (St concentration [facility]) Diastolic blood 78 mm[Hg] [...] 100 % 100 % MEDGEN (St concentration [facility]) Diastolic blood 78 mm[Hg] 78 mm[Hg] MEDGEN (S [facility] pressure [facility] , ) Systolic blood 136 mm[Hg] 136 mm[Hg] [facility] [place] Heart rate 81 /min 81 /min MEDGEN ([facility] Respiratory rate 12 /min 12 /min MEDGEN ( [facility] , ) Body temperature 98 F 98 F MEDGEN ( [facility]) Inhaled oxygen 100 % 100 % MEDGEN ([facility], ) Diastolic blood 78 mm[Hg] 78 mm[Hg] MEDGEN (S t pressure [facility]) Systolic blood 136 mm[Hg] 136 mm[Hg] MEDGEN (St [facility]) Heart rate 84 /min 84 /min MEDGEN ([facility]) Respiratory rate 14 /min 14 /min MEDGEN ( [facility] Body mass index 23.2 kg/m2 23.2 kg/m2 MEDGEN (S t (BMI) [Ratio] [facility], ) Diastolic blood 70 mm[Hg] 70 mm[Hg] MEDGEN (S t pressure [facility]) Systolic blood 140 mm[Hg] 140 mm[Hg] MEDGEN ([facility]) Body weight 131 lb 131 lb MEDGEN ([facility] Body height 63 in 63 in MEDGEN ([facility]) Heart rate 84 /min 84 /min MEDGEN ([facility]) Respiratory rate 14 /min 14 /min MEDGEN ( [facility]) Body mass index 23.2 kg/m2 23.2 kg/m2 MEDGEN (S t (BMI) [Ratio] [facility], ) Diastolic blood 70 mm[Hg] 70 mm[Hg] MEDGEN (S t pressure [facility]) Systolic blood 140 mm[Hg] 140 mm[Hg] MEDGEN [facility] [place] Body weight 131 lb 131 lb MEDGEN ([facility] Body height 63 in 63 in MEDGEN ([facility]) Heart rate 84 /min 84 /min MEDGEN ([facility]) Respiratory rate 14 /min 14 /min MEDGEN ( [facility] , ) Body mass index 23.2 kg/m2 23.2 kg/m2 MEDGEN (S t (BMI) [Ratio] [facility], ) Diastolic blood 70 mm[Hg] 70 mm[Hg] MEDGEN (S t pressure [facility] , ) Systolic blood 140 mm[Hg] 140 mm[Hg] MEDGEN ([facility] , ) Body weight 131 lb 131 lb MEDGEN ([facility] , ) Body height 63 in 63 in MEDGEN ([facility] , ) Heart rate 84 /min 84 /min MEDGEN ([facility] , ) Respiratory rate 14 /min 14 /min MEDGEN ( [facility] , ) Body mass index 23.2 kg/m2 23.2 kg/m2 MEDGEN (S t (BMI) [Ratio] [facility], ) Diastolic blood 70 mm[Hg] 70 mm[Hg] MEDGEN (S t pressure [facility] , ) Systolic blood 140 mm[Hg] 140 mm[Hg] MEDGEN ([facility] , ) Body weight 131 lb 131 lb MEDGEN ([facility] , ) Body height 63 in 63 in MEDGEN ([facility] , ) Heart rate 84 /min 84 /min MEDGEN ([facility] , ) Respiratory rate 14 /min 14 /min MEDGEN ( [facility] , ) Body mass index 23.2 kg/m2 23.2 kg/m2 MEDGEN (S t (BMI) [Ratio] [facility], ) Diastolic blood 70 mm[Hg] 70 mm[Hg] MEDGEN (S t pressure [facility] , ) Systolic blood 140 mm[Hg] 140 mm[Hg] MEDGEN ([facility] , ) Body weight 131 lb 131 lb MEDGEN ([facility] , ) Body height 63 in 63 in MEDGEN ([facility] , ) Heart rate 84 /min 84 /min MEDGEN ([facility] , ) Respiratory rate 14 /min 14 /min MEDGEN ( [facility] , ) Body mass index 23.2 kg/m2 23.2 kg/m2 MEDGEN (S t (BMI) [Ratio] [facility], ) Diastolic blood 70 mm[Hg] 70 mm[Hg] MEDGEN (S t pressure [facility] , ) Systolic blood 140 mm[Hg] 140 mm[Hg] MEDGEN ([facility] , ) Body weight 131 lb 131 lb MEDGEN ([facility]) Body height 63 in 63 in MEDGEN ([facility]) Heart rate 84 /min 84 /min MEDGEN ([facility]) Respiratory rate 14 /min 14 /min MEDGEN ( [facility] , ) Body mass index 23.2 kg/m2 23.2 kg/m2 MEDGEN (S t (BMI) [Ratio] [facility], ) Diastolic blood 70 mm[Hg] 70 mm[Hg] MEDGEN (S t pressure [facility] , ) Systolic blood 140 mm[Hg] 140 mm[Hg] MEDGEN ([facility] , ) Body weight 131 lb 131 lb MEDGEN ([facility]) Body height 63 in 63 in MEDGEN ([facility]) Heart rate 84 /min 84 /min MEDGEN ([facility]) Respiratory rate 14 /min 14 /min MEDGEN ( [facility]) Body mass index 23.2 kg/m2 23.2 kg/m2 MEDGEN (S t (BMI) [Ratio] [facility], ) Diastolic blood 70 mm[Hg] 70 mm[Hg] MEDGEN (S t pressure [facility] , ) Systolic blood 140 mm[Hg] 140 mm[Hg] MEDGEN [facility] [facility] [place] Body weight 131 lb 131 lb MEDGEN ([facility]) Body height 63 in 63 in MEDGEN ([facility]) Heart rate 84 /min 84 /min MEDGEN ([facility]) Respiratory rate 14 /min 14 /min MEDGEN ( [facility]) Body mass index 23.2 kg/m2 23.2 kg/m2 MEDGEN (S t (BMI) [Ratio] [facility], ) Diastolic blood 70 mm[Hg] 70 mm[Hg] MEDGEN (S t pressure [facility] , ) Systolic blood 140 mm[Hg] 140 mm[Hg] MEDGEN ([facility] , ) Body weight 131 lb 131 lb MEDGEN ([facility]) Body height 63 in 63 in MEDGEN ([facility] , ) Heart rate 84 /min 84 /min MEDGEN ([facility] , ) Respiratory rate 14 /min 14 /min MEDGEN ( [facility] , ) Body mass index 23.2 kg/m2 23.2 kg/m2 MEDGEN (S t (BMI) [Ratio] [facility], ) Diastolic blood 70 mm[Hg] 70 mm[Hg] MEDGEN (S t pressure [facility] , ) Systolic blood 140 mm[Hg] 140 mm[Hg] MEDGEN ([facility] , ) Body weight 131 lb 131 lb MEDGEN ([facility]) Body height 63 in 63 in MEDGEN ([facility] , ) Heart rate 84 /min 84 /min MEDGEN ([facility] , ) Respiratory rate 14 /min 14 /min MEDGEN ( [facility] , ) Body mass index 23.2 kg/m2 23.2 kg/m2 MEDGEN (S t (BMI) [Ratio] [facility], ) Diastolic blood 70 mm[Hg] 70 mm[Hg] MEDGEN (S t pressure [facility] , ) Systolic blood 140 mm[Hg] 140 mm[Hg] MEDGEN ([facility] , ) Body weight 131 lb 131 lb MEDGEN ([facility]) Body height 63 in 63 in MEDGEN ([facility]) Heart rate 84 /min 84 /min MEDGEN ([facility] , ) Respiratory rate 14 /min 14 /min MEDGEN ( [facility] , ) Body mass index 23.2 kg/m2 23.2 kg/m2 MEDGEN (S t (BMI) [Ratio] [facility], ) Diastolic blood 70 mm[Hg] 70 mm[Hg] MEDGEN (S t pressure [facility] , ) Systolic blood 140 mm[Hg] 140 mm[Hg] MEDGEN (St pressure [facility]) Body weight 131 lb 131 lb MEDGEN ([facility]) Body height 63 in 63 in MEDGEN ([facility]) Heart rate 68 /min 68 /min MEDGEN ([facility]) Respiratory rate 15 /min 15 /min MEDGEN ( [facility]) Inhaled oxygen 96 % 96 % MEDGEN ([facility], ) Body mass index 23.7 kg/m2 23.7 kg/m2 MEDGEN (S t (BMI) [Ratio] [facility], ) Diastolic blood 83 mm[Hg] 83 mm[Hg] MEDGEN (S t pressure [facility]) Systolic blood 155 mm[Hg] 155 mm[Hg] MEDGEN ([facility]) Body weight 134 lb 134 lb MEDGEN ([facility]) Body height 63 in 63 in MEDGEN ([facility]) Heart rate 68 /min 68 /min MEDGEN ([facility]) Respiratory rate 15 /min 15 /min MEDGEN ( [facility]) Inhaled oxygen 96 % 96 % MEDGEN ([facility], ) Body mass index 23.7 kg/m2 23.7 kg/m2 MEDGEN (S t (BMI) [Ratio] [facility], ) Diastolic blood 83 mm[Hg] 83 mm[Hg] MEDGEN (S t pressure [facility]) Systolic blood 155 mm[Hg] 155 mm[Hg] MEDGEN ([facility]) Body weight 134 lb 134 lb MEDGEN ([facility]) Body height 63 in 63 in MEDGEN ([facility]) Heart rate 68 /min 68 /min MEDGEN ([facility]) Respiratory rate 15 /min 15 /min MEDGEN ( [facility]) Inhaled oxygen 96 % 96 % MEDGEN ([facility], ) Body mass index 23.7 kg/m2 23.7 kg/m2 MEDGEN (S t (BMI) [Ratio] [facility], ) Diastolic blood 83 mm[Hg] 83 mm[Hg] MEDGEN (S t pressure [facility]) Systolic blood 155 mm[Hg] 155 mm[Hg] MEDGEN [facility] [place] Body weight 134 lb 134 lb MEDGEN ([facility] , ) Body height 63 in 63 in MEDGEN ([facility]) Heart rate 68 /min 68 /min MEDGEN ([facility] , ) Respiratory rate 15 /min 15 /min MEDGEN ( [facility] , ) Inhaled oxygen 96 % 96 % MEDGEN ([facility], ) Body mass index 23.7 kg/m2 23.7 kg/m2 MEDGEN (S t (BMI) [Ratio] [facility], ) Diastolic blood 83 mm[Hg] 83 mm[Hg] MEDGEN (S t pressure [facility] , ) Systolic blood 155 mm[Hg] 155 mm[Hg] MEDGEN ([facility] , ) Body weight 134 lb 134 lb MEDGEN ([facility] Body height 63 in 63 in MEDGEN ([facility] , ) Heart rate 68 /min 68 /min MEDGEN ([facility] , ) Respiratory rate 15 /min 15 /min MEDGEN ( [facility] , ) Inhaled oxygen 96 % 96 % MEDGEN ([facility], ) Body mass index 23.7 kg/m2 23.7 kg/m2 MEDGEN (S t (BMI) [Ratio] [facility], ) Diastolic blood 83 mm[Hg] 83 mm[Hg] MEDGEN (S t pressure [facility] , ) Systolic blood 155 mm[Hg] 155 mm[Hg] MEDGEN ([facility] , ) Body weight 134 lb 134 lb MEDGEN ([facility]) Body height 63 in 63 in MEDGEN ([facility]) Heart rate 68 /min 68 /min MEDGEN ([facility] , ) Respiratory rate 15 /min 15 /min MEDGEN ( [facility] , ) Inhaled oxygen 96 % 96 % MEDGEN ([facility], ) Body mass index 23.7 kg/m2 23.7 kg/m2 MEDGEN (S t (BMI) [Ratio] [facility], ) Diastolic blood 83 mm[Hg] 83 mm[Hg] MEDGEN (S t pressure [facility] , ) Systolic blood 155 mm[Hg] 155 mm[Hg] MEDGEN [facility] [place] [place] Body weight 134 lb 134 lb MEDGEN ([facility] , ) Body height 63 in 63 in MEDGEN ([facility]) Heart rate 68 /min 68 /min MEDGEN ([facility] , ) Respiratory rate 15 /min 15 /min MEDGEN ( [facility] , ) Inhaled oxygen 96 % 96 % MEDGEN ([facility], ) Body mass index 23.7 kg/m2 23.7 kg/m2 MEDGEN (S t (BMI) [Ratio] [facility], ) Diastolic blood 83 mm[Hg] 83 mm[Hg] MEDGEN (S t pressure [facility] , ) Systolic blood 155 mm[Hg] 155 mm[Hg] MEDGEN ([facility] , ) Body weight 134 lb 134 lb MEDGEN ([facility] , ) Body height 63 in 63 in MEDGEN ([facility] , ) Heart rate 68 /min 68 /min MEDGEN ([facility] , ) Respiratory rate 15 /min 15 /min MEDGEN ( [facility] , ) Inhaled oxygen 96 % 96 % MEDGEN ([facility], ) Body mass index 23.7 kg/m2 23.7 kg/m2 MEDGEN (S t (BMI) [Ratio] [facility], ) Diastolic blood 83 mm[Hg] 83 mm[Hg] MEDGEN (S t pressure [facility] , ) Systolic blood 155 mm[Hg] 155 mm[Hg] MEDGEN [facility] [place] [facility] [place] Body weight 134 lb 134 lb MEDGEN ([facility]) Body height 63 in 63 in MEDGEN ([facility] , ) Heart rate 68 /min 68 /min MEDGEN ([facility] , ) Respiratory rate 15 /min 15 /min MEDGEN ( [facility] , ) Inhaled oxygen 96 % 96 % MEDGEN ([facility], ) Body mass index 23.7 kg/m2 23.7 kg/m2 MEDGEN (S t (BMI) [Ratio] [facility], ) Diastolic blood 83 mm[Hg] 83 mm[Hg] MEDGEN (S t pressure [facility] , ) Systolic blood 155 mm[Hg] 155 mm[Hg] MEDGEN [facility] [place] [facility] [place] Body weight 134 lb 134 lb MEDGEN ([facility] , ) Body height 63 in 63 in MEDGEN ([facility] , ) Heart rate 68 /min 68 /min MEDGEN ([facility] , ) Respiratory rate 15 /min 15 /min MEDGEN ( [facility] , ) Inhaled oxygen 96 % 96 % MEDGEN ([facility], ) Body mass index 23.7 kg/m2 23.7 kg/m2 MEDGEN (S t (BMI) [Ratio] [facility], ) Diastolic blood 83 mm[Hg] 83 mm[Hg] MEDGEN (S t pressure [facility] , ) Systolic blood 155 mm[Hg] 155 mm[Hg] MEDGEN ([facility] , ) Body weight 134 lb 134 lb MEDGEN ([facility] , ) Body height 63 in 63 in MEDGEN ([facility] , ) Heart rate 68 /min 68 /min MEDGEN ([facility] , ) Respiratory rate 15 /min 15 /min MEDGEN ( [facility] , ) Inhaled oxygen 96 % 96 % MEDGEN ([facility], ) Body mass index 23.7 kg/m2 23.7 kg/m2 MEDGEN (S t (BMI) [Ratio] [facility], ) Diastolic blood 83 mm[Hg] 83 mm[Hg] MEDGEN (S t pressure [facility] , ) Systolic blood 155 mm[Hg] 155 mm[Hg] MEDGEN ([facility] , ) Body weight 134 lb 134 lb MEDGEN ([facility] , ) Body height 63 in 63 in MEDGEN ([facility] , ) Heart rate 68 /min 68 /min MEDGEN ([facility] , ) Respiratory rate 15 /min 15 /min MEDGEN ( [facility] , ) Inhaled oxygen 96 % 96 % MEDGEN ([facility], ) Body mass index 23.7 kg/m2 23.7 kg/m2 MEDGEN (S t (BMI) [Ratio] [facility], ) Diastolic blood 83 mm[Hg] 83 mm[Hg] MEDGEN (S t pressure [facility] , ) Systolic blood 155 mm[Hg] 155 mm[Hg] MEDGEN ([facility] , ) Body weight 134 lb 134 lb MEDGEN ([facility] Body height 63 in 63 in MEDGEN ([facility]) Heart rate 65 /min 65 /min MEDGEN ([facility]) Inhaled oxygen 96 % 96 % MEDGEN ([facility], ) Body mass index 23.7 kg/m2 23.7 kg/m2 MEDGEN (S t (BMI) [Ratio] [facility], ) Diastolic blood 82 mm[Hg] 82 mm[Hg] MEDGEN (S t pressure [facility] , ) Systolic blood 150 mm[Hg] 150 mm[Hg] MEDGEN ([facility] , ) Body weight 134 lb 134 lb MEDGEN ([facility]) Body height 63 in 63 in MEDGEN ([facility]) Heart rate 65 /min 65 /min MEDGEN ([facility]) Inhaled oxygen 96 % 96 % MEDGEN ([facility], ) Body mass index 23.7 kg/m2 23.7 kg/m2 MEDGEN (S t (BMI) [Ratio] [facility], ) Diastolic blood 82 mm[Hg] 82 mm[Hg] MEDGEN (S t pressure [facility] , ) Systolic blood 150 mm[Hg] 150 mm[Hg] MEDGEN ([facility] , ) Body weight 134 lb 134 lb MEDGEN ([facility]) Body height 63 in 63 in MEDGEN ([facility]) Heart rate 65 /min 65 /min MEDGEN ([facility]) Inhaled oxygen 96 % 96 % MEDGEN ([facility], ) Body mass index 23.7 kg/m2 23.7 kg/m2 MEDGEN (S t (BMI) [Ratio] [facility], ) Diastolic blood 82 mm[Hg] 82 mm[Hg] MEDGEN (S t pressure [facility]) Systolic blood 150 mm[Hg] 150 mm[Hg] MEDGEN ([facility]) Body weight 134 lb 134 lb MEDGEN ([facility]) Body height 63 in 63 in MEDGEN ([facility]) Heart rate 65 /min 65 /min MEDGEN ([facility]) Inhaled oxygen 96 % 96 % MEDGEN ([facility], ) Body mass index 23.7 kg/m2 23.7 kg/m2 MEDGEN (S t (BMI) [Ratio] [facility], ) Diastolic blood 82 mm[Hg] 82 mm[Hg] MEDGEN (S t pressure [facility] , ) Systolic blood 150 mm[Hg] 150 mm[Hg] MEDGEN ([facility] , ) Body weight 134 lb 134 lb MEDGEN ([facility]) Body height 63 in 63 in MEDGEN ([facility]) Heart rate 65 /min 65 /min MEDGEN ([facility]) Inhaled oxygen 96 % 96 % MEDGEN ([facility], ) Body mass index 23.7 kg/m2 23.7 kg/m2 MEDGEN (S t (BMI) [Ratio] [facility], ) Diastolic blood 82 mm[Hg] 82 mm[Hg] MEDGEN (S t pressure [facility] , ) Systolic blood 150 mm[Hg] 150 mm[Hg] MEDGEN ([facility] , ) Body weight 134 lb 134 lb MEDGEN ([facility]) Body height 63 in 63 in MEDGEN ([facility]) Heart rate 65 /min 65 /min MEDGEN ([facility]) Inhaled oxygen 96 % 96 % MEDGEN ([facility], ) Body mass index 23.7 kg/m2 23.7 kg/m2 MEDGEN (S t (BMI) [Ratio] [facility], ) Diastolic blood 82 mm[Hg] 82 mm[Hg] MEDGEN (S t pressure [facility] , ) Systolic blood 150 mm[Hg] 150 mm[Hg] MEDGEN ([facility] , ) Body weight 134 lb 134 lb MEDGEN ([facility] Body height 63 in 63 in MEDGEN ([facility]) Heart rate 65 /min 65 /min MEDGEN ([facility]) Inhaled oxygen 96 % 96 % MEDGEN ([facility], ) Body mass index 23.7 kg/m2 23.7 kg/m2 MEDGEN (S t (BMI) [Ratio] [facility], ) Diastolic blood 82 mm[Hg] 82 mm[Hg] MEDGEN (S t pressure [facility] , ) Systolic blood 150 mm[Hg] 150 mm[Hg] MEDGEN ([facility] , ) Body weight 134 lb 134 lb MEDGEN ([facility]) Body height 63 in 63 in MEDGEN ([facility]) Heart rate 65 /min 65 /min MEDGEN ([facility] , ) Inhaled oxygen 96 % 96 % MEDGEN ([facility], ) Body mass index 23.7 kg/m2 23.7 kg/m2 MEDGEN (S t (BMI) [Ratio] [facility], ) Diastolic blood 82 mm[Hg] 82 mm[Hg] MEDGEN (S t pressure [facility] , ) Systolic blood 150 mm[Hg] 150 mm[Hg] MEDGEN ([facility] , ) Body weight 134 lb 134 lb MEDGEN ([facility]) Body height 63 in 63 in MEDGEN ([facility]) Heart rate 65 /min 65 /min MEDGEN ([facility]) Inhaled oxygen 96 % 96 % MEDGEN ([facility], ) Body mass index 23.7 kg/m2 23.7 kg/m2 MEDGEN (S t (BMI) [Ratio] [facility], ) Diastolic blood 82 mm[Hg] 82 mm[Hg] MEDGEN (S t pressure [facility] , ) Systolic blood 150 mm[Hg] 150 mm[Hg] MEDGEN [facility] [place] [facility] [place] Body weight 134 lb 134 lb MEDGEN ([facility]) Body height 63 in 63 in MEDGEN ([facility]) Heart rate 65 /min 65 /min MEDGEN ([facility]) Inhaled oxygen 96 % 96 % MEDGEN ([facility]) Body mass index 23.7 kg/m2 23.7 kg/m2 MEDGEN (S t (BMI) [Ratio] [facility]) Diastolic blood 82 mm[Hg] 82 mm[Hg] MEDGEN (S t [facility]) Systolic blood 150 mm[Hg] 150 mm[Hg] MEDGEN ([facility]) Body weight 134 lb 134 lb MEDGEN ([facility]) Body height 63 in 63 in MEDGEN ([facility]) Heart rate 65 /min 65 /min MEDGEN ([facility]) Inhaled oxygen 96 % 96 % MEDGEN ([facility]) Body mass index 23.7 kg/m2 23.7 kg/m2 MEDGEN (S t (BMI) [Ratio] [facility], ) Diastolic blood 82 mm[Hg] 82 mm[Hg] MEDGEN (S t [facility]) Systolic blood 150 mm[Hg] 150 mm[Hg] MEDGEN ([facility]) Body weight 134 lb 134 lb MEDGEN ([facility]) Body height 63 in 63 in MEDGEN ([facility]) Heart rate 65 /min 65 /min MEDGEN ([facility]) Inhaled oxygen 96 % 96 % MEDGEN ([facility]) Body mass index 23.7 kg/m2 23.7 kg/m2 MEDGEN (S t (BMI) [Ratio] [facility]) Diastolic blood 82 mm[Hg] 82 mm[Hg] MEDGEN (S t pressure [facility]) Systolic blood 150 mm[Hg] 150 mm[Hg] MEDGEN ([facility]) Body weight 134 lb 134 lb MEDGEN ([facility]) Body height 63 in 63 in MEDGEN ([facility] [facility] Heart [place] 87 /min 87 /min [facility] ([facility] Respiratory rate 14 /min 14 /min MEDGEN ( [facility] , ) Body temperature 98.7 F 98.7 F MEDGEN ( [facility] , ) Inhaled oxygen 96 % 96 % MEDGEN ([facility], ) Diastolic blood 99 mm[Hg] 99 mm[Hg] MEDGEN (S t pressure [facility] , ) Systolic blood 211 mm[Hg] 211 mm[Hg] MEDGEN ([facility] , ) Body weight 139 lb 139 lb MEDGEN ([facility] , ) Heart rate 87 /min 87 /min MEDGEN ([facility] , ) Respiratory rate 14 /min 14 /min MEDGEN ( [facility] , ) Body temperature 98.7 F 98.7 F MEDGEN ( [facility] , ) Inhaled oxygen 96 % 96 % MEDGEN ([facility], ) Diastolic blood 99 mm[Hg] 99 mm[Hg] MEDGEN (S t pressure [facility] , ) Systolic blood 211 mm[Hg] 211 mm[Hg] MEDGEN ([facility] , ) Body weight 139 lb 139 lb MEDGEN ([facility] , ) Heart rate 87 /min 87 /min MEDGEN ([place] , ) Respiratory rate 14 /min 14 /min MEDGEN ( [facility] , ) Body temperature 98.7 F 98.7 F MEDGEN ( [facility] , ) Inhaled oxygen 96 % 96 % MEDGEN ([facility], ) Diastolic blood 99 mm[Hg] 99 mm[Hg] MEDGEN (S t pressure [facility] , ) Systolic blood 211 mm[Hg] 211 mm[Hg] MEDGEN ([facility] , ) Body weight 139 lb 139 lb MEDGEN ([facility] , ) Heart rate 87 /min 87 /min MEDGEN ([facility] , ) Respiratory rate 14 /min 14 /min MEDGEN ( [facility] , ) Body temperature 98.7 F 98.7 F MEDGEN ( [facility] , ) Inhaled oxygen 96 % 96 % MEDGEN ([facility], ) Diastolic blood 99 mm[Hg] 99 mm[Hg] MEDGEN (S [facility] , ) Systolic blood 211 mm[Hg] 211 mm[Hg] MEDGEN ([facility] , ) Body weight 139 lb 139 lb MEDGEN ([facility] , ) Heart rate 87 /min 87 /min MEDGEN ([facility] , ) Respiratory rate 14 /min 14 /min MEDGEN ( [facility] , ) Body temperature 98.7 F 98.7 F MEDGEN ( [facility] , ) Inhaled oxygen 96 % 96 % MEDGEN ([facility], ) Diastolic blood 99 mm[Hg] 99 mm[Hg] MEDGEN (S t [facility] , ) Systolic blood 211 mm[Hg] 211 mm[Hg] MEDGEN ([facility] , ) Body weight 139 lb 139 lb MEDGEN ([facility] , ) Heart rate 87 /min 87 /min MEDGEN ([facility] , ) Respiratory rate 14 /min 14 /min MEDGEN ( [facility] , ) Body temperature 98.7 F 98.7 F MEDGEN ( [facility] , ) Inhaled oxygen 96 % 96 % MEDGEN ([facility], ) Diastolic blood 99 mm[Hg] 99 mm[Hg] MEDGEN (S t pressure [facility] , ) Systolic blood 211 mm[Hg] 211 mm[Hg] MEDGEN ([facility] , ) Body weight 139 lb 139 lb MEDGEN ([facility] , ) Heart rate 87 /min 87 /min MEDGEN ([facility] , ) Respiratory rate 14 /min 14 /min MEDGEN ( [facility] , ) Body temperature 98.7 F 98.7 F MEDGEN ( [facility] , ) Inhaled oxygen 96 % 96 % MEDGEN ( concentration [facility], ) Diastolic blood 99 mm[Hg] 99 mm[Hg] MEDGEN (S t pressure [facility] , ) Systolic blood 211 mm[Hg] 211 mm[Hg] MEDGEN ([facility] , ) Body weight 139 lb 139 lb MEDGEN ([facility] , ) Heart rate 87 /min 87 /min MEDGEN ([facility] , ) Respiratory rate 14 /min 14 /min MEDGEN ( [facility] , ) Body temperature 98.7 F 98.7 F MEDGEN ( [facility] , ) Inhaled oxygen 96 % 96 % MEDGEN ([facility], ) Diastolic blood 99 mm[Hg] 99 mm[Hg] MEDGEN (S t pressure [facility] , ) Systolic blood 211 mm[Hg] 211 mm[Hg] MEDGEN ([facility] , ) Body weight 139 lb 139 lb MEDGEN ([facility] , ) Heart rate 87 /min 87 /min MEDGEN ([facility] , ) Respiratory rate 14 /min 14 /min MEDGEN ( [facility] , ) Body temperature 98.7 F 98.7 F MEDGEN ( [facility] , ) Inhaled oxygen 96 % 96 % MEDGEN ([facility], ) Diastolic blood 99 mm[Hg] 99 mm[Hg] MEDGEN (S t pressure [facility] , ) Systolic blood 211 mm[Hg] 211 mm[Hg] MEDGEN ([facility] , ) Body weight 139 lb 139 lb MEDGEN ([facility] , ) Heart rate 87 /min 87 /min MEDGEN ([facility] , ) Respiratory rate 14 /min 14 /min MEDGEN ( [facility] , ) Body temperature 98.7 F 98.7 F MEDGEN ( [facility] , ) Inhaled oxygen 96 % 96 % MEDGEN ([facility], ) Diastolic blood 99 mm[Hg] 99 mm[Hg] MEDGEN (S t pressure [facility] , ) Systolic blood 211 mm[Hg] 211 mm[Hg] MEDGEN ([facility] , ) Body weight 139 lb 139 lb MEDGEN ([facility] , ) Heart rate 87 /min 87 /min MEDGEN ([facility] , ) Respiratory rate 14 /min 14 /min MEDGEN ( [facility] , ) Body temperature 98.7 F 98.7 F MEDGEN ( [facility] , ) Inhaled oxygen 96 % 96 % [facility] Diastolic blood 99 mm[Hg] 99 mm[Hg] MEDGEN (S t pressure [facility]) Systolic blood 211 mm[Hg] 211 mm[Hg] MEDGEN ([facility]) Body weight 139 lb 139 lb MEDGEN ([facility] Heart rate 87 /min 87 /min MEDGEN ([facility] Respiratory rate 14 /min 14 /min MEDGEN ( [facility] Body temperature 98.7 F 98.7 F MEDGEN ( [facility] Inhaled oxygen 96 % 96 % MEDGEN ([facility]) Diastolic blood 99 mm[Hg] 99 mm[Hg] MEDGEN (S t pressure [facility]) Systolic blood 211 mm[Hg] 211 mm[Hg] MEDGEN ([facility]) Body weight 139 lb 139 lb MEDGEN ([facility] Heart rate 72 /min 72 /min MEDGEN ([facility] Respiratory rate 14 /min 14 /min MEDGEN ( [facility] Body mass index 23.4 kg/m2 23.4 kg/m2 MEDGEN (S t (BMI) [Ratio] [facility], ) Diastolic blood 80 mm[Hg] 80 mm[Hg] MEDGEN (S t pressure [facility]) Systolic blood 130 mm[Hg] 130 mm[Hg] MEDGEN ([facility]) Body weight 132 lb 132 lb MEDGEN ([facility] Body height 63 in 63 in MEDGEN ([facility] Heart rate 72 /min 72 /min MEDGEN ([facility] Respiratory rate 14 /min 14 /min MEDGEN ( [facility] Body mass index 23.4 kg/m2 23.4 kg/m2 MEDGEN (S t (BMI) [Ratio] [facility]) Diastolic blood 80 mm[Hg] 80 mm[Hg] MEDGEN (S t pressure [facility]) Systolic blood 130 mm[Hg] 130 mm[Hg] MEDGEN ([facility]) Body weight 132 lb 132 lb MEDGEN ([facility] Body height 63 in 63 in MEDGEN ([facility] , ) Heart rate 72 /min 72 /min MEDGEN ([facility] , ) Respiratory rate 14 /min 14 /min MEDGEN ( [facility] , ) Body mass index 23.4 kg/m2 23.4 kg/m2 MEDGEN (S t (BMI) [Ratio] [facility], ) Diastolic blood 80 mm[Hg] 80 mm[Hg] MEDGEN (S t pressure [facility] , ) Systolic blood 130 mm[Hg] 130 mm[Hg] MEDGEN ([facility] , ) Body weight 132 lb 132 lb MEDGEN ([facility] Body height 63 in 63 in MEDGEN ([facility] , ) Heart rate 72 /min 72 /min MEDGEN ([facility] , ) Respiratory rate 14 /min 14 /min MEDGEN ( [facility] , ) Body mass index 23.4 kg/m2 23.4 kg/m2 MEDGEN (S t (BMI) [Ratio] [facility], ) Diastolic blood 80 mm[Hg] 80 mm[Hg] MEDGEN (S t pressure [facility] , ) Systolic blood 130 mm[Hg] 130 mm[Hg] MEDGEN [facility] ) Body weight 132 lb 132 lb MEDGEN ([facility] Body height 63 in 63 in MEDGEN ([facility] , ) Heart rate 72 /min 72 /min MEDGEN ([facility] , ) Respiratory rate 14 /min 14 /min MEDGEN ( [facility] , ) Body mass index 23.4 kg/m2 23.4 kg/m2 MEDGEN (S t (BMI) [Ratio] [facility], ) Diastolic blood 80 mm[Hg] 80 mm[Hg] MEDGEN (S t pressure [facility] , ) Systolic blood 130 mm[Hg] 130 mm[Hg] MEDGEN [facility] , ) Body weight 132 lb 132 lb MEDGEN ([facility] Body height 63 in 63 in MEDGEN ([facility] , ) Heart rate 72 /min 72 /min MEDGEN ([facility] Respiratory rate 14 /min 14 /min MEDGEN ( [facility] , ) Body mass index 23.4 kg/m2 23.4 kg/m2 MEDGEN (S t (BMI) [Ratio] [facility], ) Diastolic blood 80 mm[Hg] 80 mm[Hg] MEDGEN (S t pressure [facility] , ) Systolic blood 130 mm[Hg] 130 mm[Hg] MEDGEN ([facility] , ) Body weight 132 lb 132 lb MEDGEN ([facility] , ) Body height 63 in 63 in MEDGEN ([facility] , ) Heart rate 72 /min 72 /min MEDGEN ([facility] , ) Respiratory rate 14 /min 14 /min MEDGEN ( [facility] , ) Body mass index 23.4 kg/m2 23.4 kg/m2 MEDGEN (S t (BMI) [Ratio] [facility], ) Diastolic blood 80 mm[Hg] 80 mm[Hg] MEDGEN (S t pressure [facility] , ) Systolic blood 130 mm[Hg] 130 mm[Hg] MEDGEN ([facility] , ) Body weight 132 lb 132 lb MEDGEN ([facility] , ) Body height 63 in 63 in MEDGEN ([facility] , ) Heart rate 72 /min 72 /min MEDGEN ([facility] , ) Respiratory rate 14 /min 14 /min MEDGEN ( [facility] , ) Body mass index 23.4 kg/m2 23.4 kg/m2 MEDGEN (S t (BMI) [Ratio] [facility], ) Diastolic blood 80 mm[Hg] 80 mm[Hg] MEDGEN (S t pressure [facility] , ) Systolic blood 130 mm[Hg] 130 mm[Hg] MEDGEN ([facility] , ) Body weight 132 lb 132 lb MEDGEN ([facility] , ) Body height 63 in 63 in MEDGEN ([facility] , ) Heart rate 72 /min 72 /min MEDGEN ([facility] , ) Respiratory rate 14 /min 14 /min MEDGEN ( [place] , ) Body mass index 23.4 kg/m2 23.4 kg/m2 MEDGEN (S t (BMI) [Ratio] [facility], ) Diastolic blood 80 mm[Hg] 80 mm[Hg] MEDGEN (S t pressure [facility]) Systolic blood 130 mm[Hg] 130 mm[Hg] MEDGEN ([facility] , ) Body weight 132 lb 132 lb MEDGEN ([facility] Body height 63 in 63 in MEDGEN ([facility] Body weight 132 lb 132 lb MEDGEN ([facility] Body height 63 in 63 in MEDGEN ([facility] Heart rate 72 /min 72 /min MEDGEN ([facility] Respiratory rate 14 /min 14 /min MEDGEN ( [facility] Body mass index 23.4 kg/m2 23.4 kg/m2 MEDGEN (S t (BMI) [Ratio] [facility], ) Diastolic blood 80 mm[Hg] 80 mm[Hg] MEDGEN (S t pressure [facility]) Systolic blood 130 mm[Hg] 130 mm[Hg] MEDGEN ([facility] , ) Heart rate 72 /min 72 /min MEDGEN ([facility] Respiratory rate 14 /min 14 /min MEDGEN ( [facility] Body mass index 23.4 kg/m2 23.4 kg/m2 MEDGEN (S t (BMI) [Ratio] [facility], ) Diastolic blood 80 mm[Hg] 80 mm[Hg] MEDGEN (S t pressure [facility]) Systolic blood 130 mm[Hg] 130 mm[Hg] MEDGEN [facility] ) Body weight 132 lb 132 lb MEDGEN ([facility] Body height 63 in 63 in MEDGEN ([facility] Heart rate 72 /min 72 /min MEDGEN ([facility] Respiratory rate 14 /min 14 /min MEDGEN ( [facility] Body mass index 23.4 kg/m2 23.4 kg/m2 MEDGEN (S t (BMI) [Ratio] [facility], ) Diastolic blood 80 mm[Hg] 80 mm[Hg] MEDGEN (S t pressure [facility]) Systolic blood 130 mm[Hg] 130 mm[Hg] MEDGEN ([facility] , ) Body weight 132 lb 132 lb MEDGEN ([facility] Body height 63 in 63 in MEDGEN ([facility] Heart rate 69 /min 69 /min MEDGEN ([facility] Inhaled oxygen 98 % 98 % MEDGEN ([facility], ) Body mass index 23 kg/m2 23 kg/m2 MEDGEN (S t (BMI) [Ratio] [facility], ) Diastolic blood 110 mm[Hg] 110 mm[Hg] MEDGEN (S t pressure [facility] , ) Systolic blood 240 mm[Hg] 240 mm[Hg] MEDGEN ([facility] , ) Body weight 130 lb 130 lb MEDGEN ([facility] Body height 63 in 63 in MEDGEN ([facility] Heart rate 69 /min 69 /min MEDGEN ([facility] Inhaled oxygen 98 % 98 % MEDGEN ([facility], ) Body mass index 23 kg/m2 23 kg/m2 MEDGEN (S t (BMI) [Ratio] [facility], ) Diastolic blood 110 mm[Hg] 110 mm[Hg] MEDGEN (S t pressure [facility] , ) Systolic blood 240 mm[Hg] 240 mm[Hg] MEDGEN ([facility]) Body weight 130 lb 130 lb MEDGEN ([facility] Body height 63 in 63 in MEDGEN ([facility] Heart rate 69 /min 69 /min MEDGEN ([facility] Inhaled oxygen 98 % 98 % MEDGEN ([facility], ) Body mass index 23 kg/m2 23 kg/m2 MEDGEN (S t (BMI) [Ratio] [facility], ) Diastolic blood 110 mm[Hg] 110 mm[Hg] MEDGEN (S t pressure [facility] , ) Systolic blood 240 mm[Hg] 240 mm[Hg] MEDGEN ([facility] ) Body weight 130 lb 130 lb MEDGEN ([facility] Body height 63 in 63 in MEDGEN ([facility] Heart rate 69 /min 69 /min MEDGEN ([facility] Inhaled oxygen 98 % 98 % MEDGEN ([facility], ) Body mass index 23 kg/m2 23 kg/m2 MEDGEN (S t (BMI) [Ratio] [facility], ) Diastolic blood 110 mm[Hg] 110 mm[Hg] MEDGEN (S t pressure [facility]) Systolic blood 240 mm[Hg] 240 mm[Hg] MEDGEN ([facility]) Body weight 130 lb 130 lb MEDGEN ([facility] Body height 63 in 63 in MEDGEN ([facility] Body mass index 23 kg/m2 23 kg/m2 MEDGEN (S t (BMI) [Ratio] [facility], ) Diastolic blood 110 mm[Hg] 110 mm[Hg] MEDGEN (S t [facility]) Systolic blood 240 mm[Hg] 240 mm[Hg] MEDGEN ([facility]) Body weight 130 lb 130 lb MEDGEN ([facility] Body height 63 in 63 in MEDGEN ([facility] Heart rate 69 /min 69 /min MEDGEN ([facility] Inhaled oxygen 98 % 98 % MEDGEN ([facility], ) Heart rate 69 /min 69 /min MEDGEN ([facility] Inhaled oxygen 98 % 98 % MEDGEN ([facility], ) Body mass index 23 kg/m2 23 kg/m2 MEDGEN (S t (BMI) [Ratio] [facility], ) Diastolic blood 110 mm[Hg] 110 mm[Hg] MEDGEN (S t [facility]) Systolic blood 240 mm[Hg] 240 mm[Hg] MEDGEN ([facility]) Body weight 130 lb 130 lb MEDGEN ([facility] Body height 63 in 63 in MEDGEN ([facility] Heart rate 69 /min 69 /min MEDGEN ([facility] Inhaled oxygen 98 % 98 % MEDGEN ([facility], ) Body mass index 23 kg/m2 23 kg/m2 MEDGEN (S t (BMI) [Ratio] [facility], ) Diastolic blood 110 mm[Hg] 110 mm[Hg] MEDGEN (S t pressure [facility] , ) Systolic blood 240 mm[Hg] 240 mm[Hg] MEDGEN ([facility] , ) Body weight 130 lb 130 lb MEDGEN ([facility] Body height 63 in 63 in MEDGEN ([facility] Heart rate 69 /min 69 /min MEDGEN ([facility] Inhaled oxygen 98 % 98 % MEDGEN ([facility], ) Body mass index 23 kg/m2 23 kg/m2 MEDGEN (S t (BMI) [Ratio] [facility], ) Diastolic blood 110 mm[Hg] 110 mm[Hg] MEDGEN (S t pressure [facility] , ) Systolic blood 240 mm[Hg] 240 mm[Hg] MEDGEN ([facility] [place] [place] Body weight 130 lb 130 lb MEDGEN ([facility] Body height 63 in 63 in MEDGEN ([facility] Heart rate 69 /min 69 /min MEDGEN ([facility] Inhaled oxygen 98 % 98 % MEDGEN ([facility], ) Body mass index 23 kg/m2 23 kg/m2 MEDGEN (S t (BMI) [Ratio] [facility], ) Diastolic blood 110 mm[Hg] 110 mm[Hg] MEDGEN (S t pressure [facility] , ) Systolic blood 240 mm[Hg] 240 mm[Hg] MEDGEN ([facility] ) Body weight 130 lb 130 lb MEDGEN ([facility] Body height 63 in 63 in MEDGEN ([facility] Heart rate 69 /min 69 /min MEDGEN ([facility] Inhaled oxygen 98 % 98 % MEDGEN ([facility], ) Body mass index 23 kg/m2 23 kg/m2 MEDGEN (S t (BMI) [Ratio] [facility], ) Diastolic blood 110 mm[Hg] 110 mm[Hg] MEDGEN (S t pressure [facility]) Systolic blood 240 mm[Hg] 240 mm[Hg] MEDGEN ([facility]) Body weight 130 lb 130 lb MEDGEN ([facility] Body height 63 in 63 in MEDGEN ([facility] Heart rate 69 /min 69 /min MEDGEN ([facility] Inhaled oxygen 98 % 98 % MEDGEN ([facility]) Body mass index 23 kg/m2 23 kg/m2 MEDGEN (S t (BMI) [Ratio] [facility], ) Diastolic blood 110 mm[Hg] 110 mm[Hg] MEDGEN (S t pressure [facility]) Systolic blood 240 mm[Hg] 240 mm[Hg] MEDGEN ([facility]) Body weight 130 lb 130 lb MEDGEN ([facility] Body height 63 in 63 in MEDGEN ([facility] Heart rate 69 /min 69 /min MEDGEN ([facility] Inhaled oxygen 98 % 98 % MEDGEN ([facility]) Body mass index 23 kg/m2 23 kg/m2 MEDGEN (S t (BMI) [Ratio] [facility], ) Diastolic blood 110 mm[Hg] 110 mm[Hg] MEDGEN (S t pressure [facility]) Systolic blood 240 mm[Hg] 240 mm[Hg] MEDGEN ([facility]) Body weight 130 lb 130 lb MEDGEN ([facility] Body height 63 in 63 in MEDGEN ([facility] Heart rate 68 /min 68 /min MEDGEN ([facility] Body temperature 98.1 F 98.1 F MEDGEN ( [facility] Inhaled oxygen 99 % 99 % MEDGEN ([facility]) Body mass index 22.7 kg/m2 22.7 kg/m2 MEDGEN (S t (BMI) [Ratio] [facility], ) Diastolic blood 90 mm[Hg] 90 mm[Hg] MEDGEN (S t pressure [facility]) Systolic blood 192 mm[Hg] 192 mm[Hg] MEDGEN ([facility]) Body weight 132 lb 132 lb MEDGEN ([facility] Body height 64 in 64 in MEDGEN ([facility]) Heart rate 68 /min 68 /min MEDGEN ([facility] Body temperature 98.1 F 98.1 F MEDGEN ( [facility] Inhaled oxygen 99 % 99 % MEDGEN ([facility]) Body mass index 22.7 kg/m2 22.7 kg/m2 MEDGEN (S t (BMI) [Ratio] [facility], ) Diastolic blood 90 mm[Hg] 90 mm[Hg] MEDGEN (S [facility]) Systolic blood 192 mm[Hg] 192 mm[Hg] MEDGEN ([facility]) Body weight 132 lb 132 lb MEDGEN ([facility] [place] Body height 64 in 64 in [facility] [place] [place] Heart rate 68 /min 68 /min [facility] [place] [place] Body temperature 98.1 F 98.1 F [facility] ( [facility] [place] Inhaled oxygen 99 % 99 % [facility] ([facility]) Body mass index 22.7 kg/m2 22.7 kg/m2 MEDGEN (S t (BMI) [Ratio] [facility] [place], ) Diastolic blood 90 mm[Hg] 90 mm[Hg] MEDGEN (S t pressure [facility] [place]) Systolic blood 192 mm[Hg] 192 mm[Hg] MEDGEN ([facility]) Body weight 132 lb 132 lb [facility] [place] [place] Body height 64 in 64 in [facility] [place] [place] Heart rate 68 /min 68 /min [facility] [place] [place] Body temperature 98.1 F 98.1 F [facility] ( [facility] [place] Inhaled oxygen 99 % 99 % [facility] ([facility]) Body mass index 22.7 kg/m2 22.7 kg/m2 MEDGEN (S t (BMI) [Ratio] [facility]) Diastolic blood 90 mm[Hg] 90 mm[Hg] MEDGEN (S t pressure [facility] [place]) Systolic blood 192 mm[Hg] 192 mm[Hg] MEDGEN ([facility]) Body weight 132 lb 132 lb [facility] [place] [place] Body height 64 in 64 in [facility] ([facility] [place] Heart rate 68 /min 68 /min [facility] ([facility] [place] Body temperature 98.1 F 98.1 F [facility] ( [facility] [place] Inhaled oxygen 99 % 99 % [facility] ([facility]) Body mass index 22.7 kg/m2 22.7 kg/m2 MEDGEN (S t (BMI) [Ratio] [facility] [place], ) Diastolic blood 90 mm[Hg] 90 mm[Hg] MEDGEN (S t pressure [facility] [place]) Systolic blood 192 mm[Hg] 192 mm[Hg] MEDGEN ([facility]) Body weight 132 lb 132 lb [facility] ([facility] [place] Body height 64 in 64 in [facility] ([facility] [place] Heart rate 68 /min 68 /min [facility] ([facility] [place] Body temperature 98.1 F 98.1 F [facility] ( [facility] [place] Inhaled oxygen 99 % 99 % [facility] ([facility]) Body mass index 22.7 kg/m2 22.7 kg/m2 MEDGEN (S t (BMI) [Ratio] [facility] [place], ) Diastolic blood 90 mm[Hg] 90 mm[Hg] MEDGEN (S t pressure [facility] [place]) Systolic blood 192 mm[Hg] 192 mm[Hg] MEDGEN ([facility]) Body weight 132 lb 132 lb [facility] ([facility] [place] Body height 64 in 64 in [facility] ([facility] [place] Heart rate 68 /min 68 /min [facility] ([facility] [place] Body temperature 98.1 F 98.1 F [facility] ( [facility] [place] Inhaled oxygen 99 % 99 % [facility] ([facility]) Body mass index 22.7 kg/m2 22.7 kg/m2 MEDGEN (S t (BMI) [Ratio] [facility] [place], ) Diastolic blood 90 mm[Hg] 90 mm[Hg] MEDGEN (S t pressure [facility] [place]) Systolic blood 192 mm[Hg] 192 mm[Hg] MED[facility] ([facility]) Body weight 132 lb 132 lb [facility] ([facility] [place] Body height 64 in 64 in [facility] ([facility] [place] Body temperature 98.1 F 98.1 F [facility] ( [facility] [place] Inhaled oxygen 99 % 99 % [facility] ([facility], ) Body mass index 22.7 kg/m2 22.7 kg/m2 MEDGEN (S t (BMI) [Ratio] [facility] [place], ) Diastolic blood 90 mm[Hg] 90 mm[Hg] MEDGEN (S t [facility] [place] , ) Systolic blood 192 mm[Hg] 192 mm[Hg] MEDGEN ([facility]) Body weight 132 lb 132 lb [facility] ([facility] [place] Body height 64 in 64 in [facility] ([facility] [place] Heart rate 68 /min 68 /min [facility] ([facility] [place] Heart rate 68 /min 68 /min [facility] ([facility] [place] Body temperature 98.1 F 98.1 F [facility] ( [facility] [place] Inhaled oxygen 99 % 99 % MED[facility] ([facility], ) Body mass index 22.7 kg/m2 22.7 kg/m2 MEDGEN (S t (BMI) [Ratio] [facility] [place], ) Diastolic blood 90 mm[Hg] 90 mm[Hg] MEDGEN (S t pressure [facility] [place]) Systolic blood 192 mm[Hg] 192 mm[Hg] MEDGEN ([facility]) Body weight 132 lb 132 lb [facility] ([facility] [place] Body height 64 in 64 in [facility] ([facility] [place] Heart rate 68 /min 68 /min [facility] ([facility] [place] Body temperature 98.1 F 98.1 F [facility] ( [facility] [place] Inhaled oxygen 99 % 99 % MED[facility] ([facility], ) Body mass index 22.7 kg/m2 22.7 kg/m2 MEDGEN (S t (BMI) [Ratio] [facility] [place], ) Diastolic blood 90 mm[Hg] 90 mm[Hg] MEDGEN (S t pressure [facility] [place]) Systolic blood 192 mm[Hg] 192 mm[Hg] MEDGEN ([facility]) Body weight 132 lb 132 lb [facility] ([facility] [place] Body height 64 in 64 in [facility] ([facility] [place] Heart rate 68 /min 68 /min [facility] ([facility] [place] Body temperature 98.1 F 98.1 F [facility] ( [facility] [place] Inhaled oxygen 99 % 99 % MED[facility] ([facility], ) Body mass index 22.7 kg/m2 22.7 kg/m2 MEDGEN (S t (BMI) [Ratio] [facility] [place], ) Diastolic blood 90 mm[Hg] 90 mm[Hg] MEDGEN (S t pressure [facility] [place]) Systolic blood 192 mm[Hg] 192 mm[Hg] MEDGEN ([facility]) Body weight 132 lb 132 lb [facility] ([facility] [place] Body height 64 in 64 in [facility] ([facility] [place] Heart rate 68 /min 68 /min [facility] ([facility] [place] Body temperature 98.1 F 98.1 F [facility] ( [facility] [place] Inhaled oxygen 99 % 99 % MEDGEN ([facility], ) Body mass index 22.7 kg/m2 22.7 kg/m2 MEDGEN (S t (BMI) [Ratio] [facility] [place], ) Diastolic blood 90 mm[Hg] 90 mm[Hg] MEDGEN (S t pressure [facility] [place]) Systolic blood 192 mm[Hg] 192 mm[Hg] MEDGEN ([facility]) Body weight 132 lb 132 lb [facility] ([facility] [place] Body height 64 in 64 in [facility] ([facility] [place]
[2020-07-20] MEDS ORDERED: SODIUM CHLORIDE 0.45% 500 ML IV ONE (10:00)
[2020-07-20] MEDS ORDERED: DEXAMETHASONE SODIUM PHOSPHATE 20 MG, ONDANSETRON INJECTION 8 MG in SODIUM CHLORIDE 100 ML IVPB ONE (10:00)
[2020-07-20] MEDS ORDERED: BORTEZOMIB (VELCADE) 2.5 MG/ML SUB-Q INJECTION SQ ONE (10:30)
[2020-07-20] MEDS ORDERED: CYCLOPHOSPHAMIDE PO ONE (10:30)
[2020-07-20 10:38] LABS: BASO % 1.1 % (0-2.0); EOS % 5.7 % (0-4.5); HEMOGLOBIN 10.6 GM/dL (11.7-16.9); LYMPH % 24.3 % (8-40); MCH 33.1 pg (25.7-33.7); MCHC 33.2 g/dl (32.0-35.9); MEAN CELL VOLUME 99.7 fl (80-96); MEAN PLT VOLUME 7.7 fl (7.5-11.1); MONO % 17.2 % (3.8-10.2); NEUT % 51.7 % (42.8-82.8); PLATELET COUNT 150 K/MM3 (134-434); RBC 3.21 M/mm3 (4.00-5.60); WHITE BLOOD COUNT 5.8 K/mm3 (4.0-10.0)
[2020-07-20 11:12] LABS: ALBUMIN 3.3 g/dl (3.4-5.0); BILIRUBIN,DIRECT 0.1 mg/dL (0.0-0.2); BILIRUBIN,TOTAL 0.3 mg/dL (0.2-1); BLOOD UREA NITROGEN 25.7 mg/dL (7-18); CALCIUM 8.2 mg/dL (8.5-10.1); CREATININE 3.5 mg/dL (0.55-1.3); MAGNESIUM 2.3 mg/dL (1.8-2.4); POTASSIUM 4.3 mmol/L (3.5-5.1); TOT PROT 8.3 g/dl (6.4-8.2)
[2020-07-20] MEDS ORDERED: amLODIPine BESYLATE 5 MG TABLET (FP) PO ONE (12:00)
[2020-07-20 15:16] VITALS: BP 178/87; PULSE 60; TEMP 98.7
[2020-07-21 18:12] LABS: FREE KAPPA,SERUM 29.1 mg/L (3.3-19.4)
[2020-07-22 06:08] LABS: FREE KAP CHN UR 98.13 mg/L (0.63-113.79); KAPPA LAMBDA RATIO URIN 3.19 (1.03-31.76)
== END 2020-07-20 13:40 | disposition home or self-care (01) ==
LOC: JONCCHEMO 07:17
PROVIDERS: ATTEND Internal Medicine Hematology & Oncology
PROC: 3E01305 Introduction of Other Antineoplastic into Subcutaneous Tissue, Percutaneous Approach (ICD-10-PCS; principal; 2020-07-20)
PROC: 3E033GC Introduction of Other Therapeutic Substance into Peripheral Vein, Percutaneous Approach (ICD-10-PCS; 2020-07-20)
PROC: 3E0337Z Introduction of Electrolytic and Water Balance Substance into Peripheral Vein, Percutaneous Approach (ICD-10-PCS; 2020-07-20)
DX: Z51.11 Encounter for antineoplastic chemotherapy (principal); C90.00 Multiple myeloma not having achieved remission
CPT/HCPCS: 36415; 80048; 80076; 82784; 83615; 83735; 83883; 84550; 85025; 86335; 87517; 96361; 96365; 96401; J9041